=== PATIENT | female | born 1945 | race Hispanic/Latino ===

== ENCOUNTER 2019-07-16 11:54 | Inpatient (IN) | payer MEDICARE, OTHER ==
--- NOTE | 2019-07-16 12:50 | EKG ---
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
[2019-07-16] MEDS ORDERED: MIDAZOLAM HCL 2 MG/2 ML INJ ONE (12:59)
[2019-07-16] MEDS ORDERED: FENTANYL CITR 100 MCG/2 ML ONE (13:00)
[2019-07-16 13:07] LABS: Absolute Lymphocytes (CBC) 1.8 K/uL (0.7-4.9); Basophils % 0.7 % (0-1.3); Lymphocytes % 22.1 % (15.3-44.8); MPV 10.9 fL (7.6-11.3); RBC Red Blood Cell Count 3.57 M/uL (3.86-4.86)
[2019-07-16] MEDS ORDERED: NA CHLORIDE 0.9% 1,000 ML ONE (13:09)
[2019-07-16] MEDS ORDERED: PROMETHAZINE INJ 25 MG/ML AMP ONE (13:15)
[2019-07-16 13:34] LABS: ALT/SGPT 21 U/L (12-78); AST/SGOT 16 U/L (15-37); Albumin 3.2 g/dL (3.4-5.0); Alkaline Phosphatase 150 U/L (45-117); BUN Blood Urea Nitrogen 39 mg/dL (7-18); Bicarbonate 23 mmol/L (21-32); Bilirubin Direct < 0.1 mg/dL (0-0.2); Bilirubin Total 0.2 mg/dL (0.2-1.0); Glucose Level 210 mg/dL (74-106); Magnesium 2.4 mg/dL (1.8-2.4); NT PRO-BNP 1560 pg/mL (<125); Potassium 4.3 mmol/L (3.5-5.1); Protein, Total 7.4 g/dL (6.4-8.2); Sodium Level 142 mmol/L (136-145); Troponin (Emerg Dept Use Only) < 0.02 ng/mL (0.0-0.045)
--- NOTE | 2019-07-16 13:38 | RAD REPORT ---
EXAM DESCRIPTION: RAD - Chest Single View - 07/16/2019 1:13 pm CLINICAL HISTORY: CHEST PAIN COMPARISON: Portable March 2016 TECHNIQUE: AP portable chest image was obtained 07/16/2019 1:13 pm . FINDINGS: No peripheral mass or consolidation. Interstitial markings are prominent. Cardiomegaly is present with prominent vasculature. Pacemaker/defibrillator is in place. Heart and vasculature are no rmal. No measurable pleural effusion and no pneumothorax. No acute bony abnormality seen. No acute ao rtic findings suspected. IMPRESSION: Mild CHF/volume overload pattern.
--- OUTSIDE RECORDS SUMMARY | 2019-07-16 14:10 | XMS REPORT ---
:1945 Author Organization [facility] t Address [address] [place] [address] Care Team Providers Name Role Phone Kumar SQUIRES Attending Clinician Junito Coleman Main Attending Clinician Unavailable Lauryn Moscoso MD Attending Clinician Tin SQUIRES Attending Clinician Problems This patient has no known problems. Allergies, Adverse Reactions, Alerts This patient has no known allergies or adverse reactions. Medications This patient has no known medications. Procedures This patient has no known procedures. Encounters Start End Encounter Admission Attending Care Care Encounter Source Date/Time Date/Time Type Type Clinicians Facility Department ID 2019-07-01 2019-07-01 Telephone Kumar LAJENNI [id number] 00:00:00 00:00:00 Sriram Gomez [id number] [place] [id number] Uriah [phone] [facility] 059 [facility] 2019-06-30 2019-06-30 Ice Skating Teacher Luís Coleman [id number] 07:52:57 08:07:57 Visit Lab Main Jason [id number] [place] [id number] Uriah [id number] [facility] 353 [facility] 2019-06-25 2019-06-25 Telemedici Kumar LAJENNI [id number] 08:37:50 08:57:50 ne Visit Sriram [place] [id number] [place] [id number] Professio [phone] [address] 2019-05-28 2019-05-28 [facility] [id number] 00:00:00 00:00:00 [facility] [id number] [place] [id number] Professio [phone] [place] [address] Office [facility] 2019-05-25 2019-05-25 [facility] [id number] 00:00:00 00:00:00 [facility] [id number] [place] [id number] Professio [phone] [place] [address] Office [facility] 2019-05-20 2019-05-20 [facility] [id number] 13:50:59 14:10:59 ne Visit Sriram Gomez [id number] [place] [id number] Professio [phone] [address] 2019-05-20 2019-05-20 [facility]phone [facility] [id number] 00:00:00 00:00:00 [facility] [id number] [place] [id number] Professio [phone] [place] [address] Office [facility] 2019-05-13 2019-05-13 [facility]phone [facility] [id number] 00:00:00 00:00:00 Sriram [place] [id number] [place] [id number] Professio [phone] [address] 2019-05-09 2019-05-09 [facility] [id number] 00:00:00 00:00:00 [facility] [id number] [place] [id number] [facility]io [phone] [place] [address] Office [facility] 2019-05-02 2019-05-02 Telephone Tin [facility] [id number] 00:00:00 00:00:00 [place] Jason [id number] [place] [id number] Professio [phone] [facility] 220 Building 2019-05-02 2019-05-02 Telephone Blanka [facility] [id number] 00:00:00 00:00:00 [facility] [id number] [place] [id number] Professio [phone] [facility] 044 Office Building One 2019-04-30 2019-04-30 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 Profess[facility] [phone] [address] Results This patient has no known results.
--- OUTSIDE RECORDS SUMMARY | 2019-07-16 14:10 | XMS REPORT | Summary of Care ---
:1945 Author Organization [facility] Address [address] [place], [place] [address] Care Team Providers Name Role Phone Ortega Dorsey MD Chief Controller [phone] Lauryn Moscoso MD Primary Care Provider Lauren Dickinson DO Cloth Booker Reason for Referral (Routine) Status Reason Specialty Diagnoses / Referred By Referred To Procedures Contact Contact New Request Cardiology Diagnoses Atrial fibrillation, unspecified type Sriram Heath MD Procedures CONSULT CARDIAC EP/HEART RHYTHM CENTER [address] [place] [address] [address] [place] [address] Reason for Visit Reason Comments Follow-up 3mo Encounter Details Date Type Department Care Team Description 04/28/2019 Office Visit [facility] Sriram Heath M D Atrial fibrillation, unspecified type (P rimary Dx); Cardiology- [address] Chronic systolic heart failu re; [address] [place] [address] Essential hypertension; Drive, [address] Other hyperlipidemia; [place], [place] [address] Obesity (BMI 30-39.9) [id number] Allergies No Known Allergiesdocumented as of this encounter (statuses as of 04/28/2019) Medications Medication Sig Dispensed Refills Start End Date Status Date Blood-Glucose Meter Check glucose 1 Each 0 Active Kit once daily 8 before breakfast; Diagnosis code E11.9 blood sugar Check glucose 50 Strip 11 Acti ve diagnostic (BLOOD once daily 8 GLUCOSE TEST) strip before breakfast; Diagnosis code E11.9 Lancets Misc Check glucose 50 Each Act fernando once daily 8 before breakfast; Diagnosis code E11.9 insulin NPH human inject under 0 Active isophane (NOVOLIN N the skin. 20 SC) units inj SC qAM, 26 units qPM insulin regular inject under 0 Active human (NOVOLIN R the skin. Per REGULAR U-100 Sliding scale INSULN) 100 unit/mL injection XARELTO 15 mg TAKE 1 TABLET 30 tablet 5 Ac tive tabletIndications: BY MOUTH ONCE 9 Atrial A DAY fibrillation, unspecified type traMADol 50 mg Take 1 tablet 20 tablet 0 A ctive tabletIndications: by mouth 9 Injury of head, every 6 (six) initial encounter hours as needed (pain). metoclopramide HCl Take 1 tablet 20 tablet 0 Active 10 mg by mouth 9 tabletIndications: every 6 (six) Injury of head, hours as initial encounter needed (headache and/or nausea). sacubitril-valsarta Take 0.5 60 tablet 2 Active n (ENTRESTO) 24-26 tablets by 9 mg mouth 2 (two) tabletIndications: times daily. Chronic systolic heart failure phenytoin Extended TAKE 1 270 capsule 1 Active 100 mg CAPSULE BY 9 capsuleIndications: MOUTH EVERY Seizure disorder MORNING AND 2 CAPSULES IN THE EVENING digoxin 125 mcg Take 1 tablet 30 tablet 5 Active (0.125 mg) by mouth 9 tabletIndications: daily. Chronic combined systolic and diastolic heart failure furosemide 20 mg Take 1 tablet 15 tablet 0 Active tabletIndications: by mouth as 9 Non-ischemic needed cardiomyopathy (worsening swelling or SOB). atorvastatin 40 mg TAKE 1 TABLET 90 tablet 1 Active tabletIndications: BY MOUTH 0 Other EVERYDAY AT hyperlipidemia BEDTIME metoprolol Take 2 270 tablet 1 Active succinate XL 50 mg tablets by 0 24 hr mouth 2 (two) tabletIndications: times daily. Essential hypertension metoprolol Take 1.5 270 tablet 1 04/28/19 Disconti nued succinate XL 50 mg tablets by 9 20 (Reorder) 24 hr mouth 2 (two) tabletIndications: times daily. Essential hypertension documented as of this encounter (statuses as of 04/28/2019) Active Problems Problem Noted Date Spontaneous ecchymoses 01/09/2019 Multiple thyroid nodules 12/18/2018 Overview: "no worrisome features" per US 12/18/18 PAF (paroxysmal atrial fibrillation) 12/09/2018 Chronic diastolic congestive heart failure 12/09/2018 Obesity (BMI 30-39.9) 12/09/2018 Orthostatic hypotension 12/09/2018 FELICIA (acute kidney injury) 12/09/2018 Dizziness 12/07/2018 Acute on chronic anemia 10/30/2018 Atypical chest pain 06/27/2018 Left arm pain 06/26/2018 Arthritis of lumbar spine 02/25/2018 Degenerative arthritis of lumbar spine 02/25/2018 Spondylolisthesis, lumbar region 02/25/2018 DDD (degenerative disc disease), lumbar 02/25/2018 Osteoarthritis of left knee 02/25/2018 Dyspnea 02/13/2018 Acute on chronic combined systolic and diastolic conge stive heart failure 02/13/2018 Chronic nausea 02/13/2018 Dysphagia 02/13/2018 Fatty liver 07/09/2017 Abnormal LFTs 06/29/2017 Multiple renal cysts 06/29/2017 Overview: Negink Type 1 per Radiologist. Hyperkalemia 06/29/2017 History of colon polyps 06/21/2017 History of pulmonary embolism 04/07/2017 ICD (implantable cardioverter-defibrillator) in place 04/07/2017 Atrial fibrillation 03/06/2017 Syncope 03/05/2017 DM (diabetes mellitus), type 2 with renal complication s 10/20/2011 Anxiety CKD (chronic kidney disease) stage 4, GFR 15-29 ml/min Epilepsy Esophageal reflux HLD (hyperlipidemia) HTN (hypertension) Non-ischemic cardiomyopathy ASHLYN (obstructive sleep apnea) documented as of this encounter (statuses as of 04/28/2019) Immunizations Name Administration Dates Next Due HEP B, Adult Dosage 03/25/2018, 10/10/2017, 09/05/2017 Pneumococcal 13 Conjugate, PCV13 (Prevnar 02/19/2015 13) Pneumococcal Polysaccharide, PPSV23 02/19/2011 (PNEUMOVAX) documented as of this encounter Social History Tobacco Use Types Packs/Day Years Used Date Never Smoker Smokeless Tobacco: Never Used Comments: exposed to passive smoke Alcohol Use Drinks/Week oz/Week Comments No Sex Assigned at Date Recorded Not on file Job Start Date Occupation Industry Not on file Not on file Not on file Travel History Travel Start Travel End No recent travel history available. documented as of this encounter Last Filed Vital Signs Vital Sign Reading Time Taken Comments Blood Pressure 151/81 04/28/2019 1:38 PM CDT Pulse 91 04/28/2019 1:38 PM CDT Temperature - - Respiratory Rate 19 04/28/2019 1:36 PM CDT Oxygen Saturation 96% 04/28/2019 1:36 PM CDT Inhaled Oxygen Concentration - - Weight 83.3 kg (183 lb 11.2 oz) 04/28/2019 1:36 PM CDT Height 152.4 cm (5') 04/28/2019 1:36 PM CDT Body Mass Index 35.88 04/28/2019 1:36 PM CDT documented in this encounter Patient Instructions Patient InstructionsCaSriram rubalcava MD - 04/28/2019 1:20 PM CDTIncrease Toprol XL to 100 mg 2 times a day Come for a blood test in the morning before taking pills documented in this encounter Progress Notes Sriram Heath MD - 04/28/2019 1:20 PM CDT CARDIOLOGY CLINIC NOTE 04/28/2019 Reason for Referral/Presenting Complaint: HFpEF, Afib PCP: Kylah Moscoso History of Present Illness: Teena Simpson is a 74 years old female with history of HFrEF (NICM, EF 20-25% per echo 03/05/17, NYHA functional class III, Stage C) 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 In 02/2017 she was admitted to [facility] for syncope and ICD shocks due to VT. Was initiated on amiodarone. In 01/2018 she was admitted to [facility] for volume overload. Admitted to [facility] in 06/2018 for chest pain. NC ruled out. Admitted to [facility] in 11/2018 for dizziness and orthostasis. Lasix was reduced. Coreg changed to metoprolol. Amiodarone was stopped by HF team due to hyperthyroidism. Last visit she was seen for R big toe tip blister and black color. RLE pain with walking, RLE edema.[place] and venous duplex negative. For the past 2 weeks she has been having palpitations with fast HR when doing activities. Associatedwith mild LH/imbalance. Lost a few lbs. EKG--04/28/2019--reviewed by me--Atrial sense V-paced with PVCs/NSVT Review of Systems: General: (-) fever, (-) chills, (+) weight change, (-) dizziness, (+) fatigue Skin: (-) rash HEENT: (-) headache, (-) change in vision Neck: (-) difficulty swallowing Heme: negative Resp: (-) cough, (+) dyspnea on exertion Cardio: (-) chest pain, (+) palpitations, (-) syncope GI: (-) vomiting, (-) diarrhea : negative Endo: (+) diabetes, (-) thyroid disease Neuro: (-) numbness, (-) tingling, (-) weakness Back: (-) pain MOJGAN: (-) muscle pain, (-) claudication Psych: (-) anxiety, (-) depression Past Medical History: Past Medical History: Diagnosis Date A-fib Abnormal LFTs Anemia Anxiety Chronic nausea 02/13/2018 CKD (chronic kidney disease) stage 4, GFR 15-29 ml/min DDD (degenerative disc disease), lumbar 02/25/2018 Degenerative arthritis of lumbar spine 02/25/2018 Diabetes mellitus Elevated alkaline phosphatase level 06/29/2017 Epilepsy Esophageal reflux Esophageal stricture 07/20/2017 Fatty liver 07/09/2017 Gastritis 07/20/2017 History of colon polyps 06/21/2017 HLD (hyperlipidemia) HTN (hypertension) Hyperkalemia 06/29/2017 ICD (implantable cardiac defibrillator) in place 2008 Multiple renal cysts 06/29/2017 Bosniak I type per Radiology Multiple thyroid nodules 12/18/2018 "no worrisome features" per US 12/18/18 Non-ischemic cardiomyopathy ASHLYN (obstructive sleep apnea) Osteoarthritis of left knee 02/25/2018 PE (pulmonary embolism) 2010 Spondylolisthesis, lumbar region 02/25/2018 Current Medications: Current Outpatient Medications Medication Sig Dispense Refill metoprolol succinate XL 50 mg 24 hr tablet Take 2 tablets by mouth 2 (two) times daily. 270 tablet 1 atorvastatin 40 mg tablet TAKE 1 TABLET BY MOUTH EVERYDAY AT BEDTIME 90 tablet 1 digoxin 125 mcg (0.125 mg) tablet Take 1 tablet by mouth daily. 30 tablet 5 furosemide 20 mg tablet Take 1 tablet by mouth as needed (worsening swelling or SOB). 15 tablet 0 phenytoin Extended 100 mg capsule TAKE 1 CAPSULE BY MOUTH EVERY MORNING AND 2 CAPSULES IN THE EVENING 270 capsule 1 sacubitril-valsartan (ENTRESTO) 24-26 mg tablet Take 0.5 tablets by mouth 2 (two) times daily. 60 tablet 2 XARELTO 15 mg tablet TAKE 1 TABLET BY MOUTH ONCE A DAY 30 tablet 5 insulin NPH human isophane (NOVOLIN N SC) inject under the skin. 20 units inj SC qAM, 26 units qPM insulin regular human (NOVOLIN R REGULAR U-100 INSULN) 100 unit/mL injection inject under the skin. Per Sliding scale metoclopramide HCl 10 mg tablet Take 1 tablet by mouth every 6 (six) hours as needed (headache and/or nausea). 20 tablet 0 traMADol 50 mg tablet Take 1 tablet by mouth every 6 (six) hours as needed (pain). 20 tablet 0 blood sugar diagnostic (BLOOD GLUCOSE TEST) strip Check glucose once daily before breakfast; Diagnosis code E11.9 50 Strip 11 Blood-Glucose Meter Kit Check glucose once daily before breakfast; Diagnosis code E11.9 1 Each 0 Lancets Misc Check glucose once daily before breakfast; Diagnosis code E11.9 50 Each 11 No current facility-administered medications for this visit. Social History: Social History Socioeconomic History Marital status: Spouse name: Not on file Number of children: Not on file Years of education: Not on file Highest education level: Not on file Occupational History Not on file Social Needs Financial resource strain: Not on file Food insecurity: Worry: Not on file Inability: Not on file Transportation needs: Medical: Not on file Non-medical: Not on file Tobacco Use Smoking status: Never Smoker Smokeless tobacco: Never Used Tobacco comment: exposed to passive smoke Substance and Sexual Activity Alcohol use: No Drug use: No Sexual activity: Not on file Lifestyle Physical activity: Days per week: Not on file Minutes per session: Not on file Stress: Not on file Relationships Social connections: Talks on phone: Not on file Gets together: Not on file Attends denominational service: Not on file Active member of club or organization: Not on file Attends meetings of clubs or organizations: Not on file Relationship status: Not on file Intimate partner violence: Fear of current or ex partner: Not on file Emotionally abused: Not on file Physically abused: Not on file Forced sexual activity: Not on file Other Topics Concern Not on file Social History Narrative Lives with retired Family History Family History Problem Relation Age of Onset Diabetes Mother Diabetes Brother Physical Examination: BP (!) 151/81 | Pulse 91 | Resp 19 | Ht 5' (1.524 m) | Wt 183 lb 11.2 oz (83.3 kg) | SpO2 96% | BMI 35.88 kg/m Constitutional: alert and oriented x 3 (person, place and date/time); no apparent distress, obese ENT: normocephalic atraumatic, supple, no lymphadenopathy, no bruits, no JVD Lungs: clear to auscultation bilaterally Cardiovascular: S1, S2 normal, regular; no murmurs, rubs or gallops GI: soft; non-tender; non-distended; normoactive bowel sounds : not examined Musculoskeletal: Extremities: no clubbing, cyanosis Skin: no rashes Neuro: no focal deficits Cardiovascular testing: EKG: Atrial sense ventricular paced rhythm. Echocardiogram: Mild dilated LV size with normal thickness. Severely reduced LV systolic function. Mild LA enlargement. Mild MR and TR. RVSP elevated 30-35 mmHg 03/2018--The left ventrical is mildly dilated. There is normal left ventricular wall thickness. Ejection Fraction = 30-35%. Diastolic dysfunction. Left ventricular systolic function is moderate to severely reduced. There is a large sized apical, septal, anteroseptal, and inferior wall motion abnormality with hypokinesis of the segments. Stress Test: nuclear stress test--02/2017--no ischemia Assessment/Plan: ICD-10-CM ICD-9-CM 1. Atrial fibrillation, unspecified type I48.91 427.31 2. Chronic systolic heart failure I50.22 428.22 3. Essential hypertension I10 401.9 4. Other hyperlipidemia E78.49 272.4 5. Obesity (BMI 30-39.9) E66.9 278.00 HFrEF--Her volume status has improved. Currently taking lasix 20 mg every other day. On Toprol XL/entresto. Low salt diet. She is taking coreg as well--advised to stop. PAfib--Now paced rhythm but probably pAfib. Off amiodarone due to thyroid side effects. On Xarelto. No bleeding. Will increase Toprol XL to 100 mg BID. S/p CAFETERIA TABLE ATTENDANT-D. Will refer to EP. ASHLYN--unable to tolerate C-PAP. Refer to sleep medicine. Carotid artery disease--bilateral moderate disease. On high intensity lipitor. LDL 54. Repeat carotid duplex next visit. Patient was counseled for lifestyle modifications including: diet, exercise and weight loss. RTC 4 months Sriram Heath MD, FAC, [facility] Wheel Arm Burnisher, Division of Cardiology [facility] documented in this encounter Plan of Treatment Date Type Specialty Care Team Description 05/21/2019 Office Visit Pulmonary Disease Karley Martinez MD [address] [place] [address] 77 15 [phone] 06/13/2019 Nurse Visit Cardiology Visit, Adc Nurse 08/13/2019 Office Visit Endocrinology Diabetes & Duncan Castle MD [facility] [address] [place] [address] [phone] 09/08/2019 Office Visit Cardiology Sriram Heath M D [address] [place] [address] 15 Name Type Priority Associated Diagnoses Order S chedule EKG-12 LEAD HEART STATION Routine Atrial fibrillation, 1 Occu rrences starting ROUTINE unspecified type 04/28/2019 until 07/27/2019 DIGOXIN LAB Routine Atrial fibrillation, Ordered : 04/28/2019 unspecified type Health Maintenance Due Date Last Done Comments DTaP,Tdap,and Td Vaccines (1 - 1957 Tdap) Zoster Recombinant Vaccine 1996 (SHINGRIX) (1 of 2) Medicare Wellness Visit 2011 Osteoporosis Screening 2011 PNEUMOCOCCAL VACCINES 65+ (2 of 2 02/20/2016 02/19/2015, - PPSV23) INFLUENZA VACCINE (#1) 2018 LDL-C 06/18/2019 06/17/2018, 06/21/2017, 10/04/2003 Breast Cancer Screening 07/09/2019 07/08/2018 (MAMMOGRAM) EYE EXAM 08/06/2019 08/05/2018, 06/22/2017, 06/22/2017, Additional history exists HgA1C 10/08/2019 04/09/2019, 12/04/2018, 06/26/2018, Additional history exists FOOT EXAM 01/07/2020 01/06/2019, 01/06/2019, 06/05/2018, Additional history exists CREATININE (SERUM) 01/20/2020 01/19/2019, 01/15/2019, 12/09/2018, Additional history exists COLONOSCOPY 02/20/2020 02/19/2010 (Previously completed) URINE MICROALBUMIN 04/09/2020 04/09/2019, 06/17/2018, 06/21/2017 HEPATITIS C (HCV) SCREEN Completed 06/21/2017 documented as of this encounter Implants Implanted Type Area Physical Therapist Device Shelf Model / Identifier Expiration Serial / Date Lot Defibrillator DEFIBRILLATOR Med[employer]onic DT [id number] / [id number] / documented as of this encounter Results Not on filedocumented in this encounter Visit Diagnoses Diagnosis Atrial fibrillation, unspecified type - Primary Chronic systolic heart failure Essential hypertension Unspecified essential hypertension Other hyperlipidemia Obesity (BMI 30-39.9) Obesity, unspecified documented in this encounter Insurance Payer Benefit Plan / Subscriber ID Effective Phone Address T [employer] [facility] [id number] 2019-Nuria javier [facility]ANTAGE G (Home) [place] [address] documented as of this encounter Advance Directives Name Relationship Healthcare Agent Communication Relationship Marcella Schmitz Child Primary healthcare agent [phone] (Mobile) nadia [email or web address]
--- OUTSIDE RECORDS SUMMARY | 2019-07-16 14:11 | XMS REPORT | Summary of Care ---
:1945 Author Organization [facility] - [facility] Address [address] [place], [place] [address] Care Team Providers Name Role Phone Ortega Dorsey MD Concrete Mixer Operator [phone] Lauryn Moscoso MD Primary Care Provider Lauren Dickinson DO Set Off Press Operator Reason for Referral (Routine) Status Reason Specialty Diagnoses / Referred By Referred To Procedures Contact Contact New Request Cardiology Diagnoses Atrial fibrillation, unspecified type Sriram Heath MD Procedures CONSULT CARDIAC EP/[facility]ART RHYTHM [facility] [address] [place] [address] [address] [place] [address] Reason for Visit Reason Comments Follow-up 3mo Encounter Details Date Type Department Care Team Description 04/28/2019 Office Visit [facility] Sriram Heath M D Atrial fibrillation, unspecified type (P rimary Dx); Cardiology- [address] Chronic systolic heart failu re; [address] [place] [address] Essential hypertension; Drive, [address] Other hyperlipidemia; [place], [place] [address] Obesity (BMI 30-39.9) [address] [...] NYHA functional class III, Stage C) 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 In 02/2017 she was admitted to [facility] for syncope and ICD shocks due to VT. Was initiated on amiodarone. In 01/2018 she was admitted to [facility] for volume overload. Admitted to [facility] in 06/2018 for chest pain. [place] ruled out. Admitted to [facility] in 11/2018 for dizziness and orthostasis. Lasix [...] file Gets together: Not on file Attends zoroastrianism service: Not on file Active member of [...] Toprol XL to 100 mg BID. S/p MANAGER UNIVERSAL-D. Will refer to EP. ASHLYN--unable to tolerate C-PAP. Refer to sleep medicine. Carotid artery disease--bilateral moderate disease. On high intensity lipitor. LDL 54. Repeat carotid duplex next visit. Patient was counseled for lifestyle modifications including: diet, exercise and weight loss. RTC 4 months Sriram Heath MD, FAC, MADISYN Machine Tool Mechanic, Division of Cardiology [facility] documented in this encounter Plan of Treatment Date Type Specialty Care Team Description 05/21/2019 Office Visit Pulmonary Disease Karley Martinez MD [address] [place] [address] 77 15 [phone] 06/13/2019 Nurse Visit Cardiology Visit, Adc Nurse 08/13/2019 Office Visit Endocrinology Diabetes & Duncan Castle MD [facility] [address] [place] [address] [phone] 09/08/2019 Office Visit Cardiology Sriram Heath M D [address] [place] [address] 15 Name Type Priority Associated Diagnoses Order [...] of this encounter Implants Implanted Type Area Pediatrics Teacher Device Shelf Model / Identifier Expiration Serial / Date Lot Defibrillator DEFIBRILLATOR Medtronic DT [id number] / [id number] / documented as of this encounter Results Not on filedocumented in this encounter Visit Diagnoses Diagnosis Atrial fibrillation, unspecified type - Primary Chronic systolic heart failure Essential hypertension Unspecified essential hypertension Other hyperlipidemia Obesity (BMI 30-39.9) Obesity, unspecified documented in this encounter Insurance Payer Benefit Plan / Subscriber ID Effective Phone Address T ype Group [facility] [id number] 2019-Nuria javier [facility] HEALTHC[facility] ADVANTAGE G (Home) [place] [address] documented as of this encounter Advance Directives Name Relationship Healthcare Agent Communication Relationship Marcella Schmitz Child Primary healthcare agent [phone] (Mobile) nadia [email or web address]
--- OUTSIDE RECORDS SUMMARY | 2019-07-16 14:12 | XMS REPORT | Summary of Care ---
:1945 Author Organization [facility] Address [address] [place], [place] [address] Care Team Providers Name Role Phone Ortega Dorsey MD Gasoline Truck Crane Operator [phone] Lauryn Moscoso MD Primary Care Provider Lauren Dickinson DO Hydroponics Worker Reason for Visit Reason Comments LAB WORK Auth/Cert Status Reason Specialty Diagnoses / Procedures Referred By Babita lawrence Referred To Contact Phlebotomy Diagnoses A FIB Adc Pob Lab Draw Procedures DIGOXIN Professional Office Building [address] [facility] , [address] [place] [address] Phone: Fax: Encounter Details Date Type Department Care Team Description 04/30/2019 Overhauler Visit [facility] Sriram Heath MD [address] [place] [address] [address] [place] [address] Routine general Professional Office Pob, Adc Lab Main medical examination [facility] Professional Office Building [address] [place] [address] , [address] [place] [address] Allergies No Known Allergiesdocumented as of this encounter (statuses as of 04/30/2019) Medications Medication Sig Dispensed Refills Start Date End Date Status Blood-Glucose Meter Check glucose 1 Each 0 07/03/2017 Active Kit once daily before breakfast; Diagnosis code E11.9 blood sugar diagnostic Check glucose 50 Strip 11 07/03/2017 Active (BLOOD GLUCOSE TEST) once daily strip before breakfast; Diagnosis code E11.9 Lancets Misc Check glucose 50 Each 11 07/03/2017 Ac tive once daily before breakfast; Diagnosis code E11.9 insulin NPH human inject under 0 Active isophane (NOVOLIN N the skin. 20 SC) units inj SC qAM, 26 units qPM insulin regular human inject under 0 Active (NOVOLIN R REGULAR the skin. Per U-100 INSULN) 100 Sliding scale unit/mL injection XARELTO 15 mg TAKE 1 TABLET BY 30 tablet 5 11/11/2018 Active tabletIndications: MOUTH ONCE A DAY Atrial fibrillation, unspecified type traMADol 50 mg Take 1 tablet by 20 tablet 0 11/22/2018 Active tabletIndications: mouth every 6 Injury of head, (six) hours as initial encounter needed (pain). metoclopramide HCl 10 Take 1 tablet by 20 tablet 0 11/22/2018 Active mg tabletIndications: mouth every 6 Injury of head, (six) hours as initial encounter needed (headache and/or nausea). sacubitril-valsartan Take 0.5 tablets 60 tablet 2 12/09/2018 Active (ENTRESTO) 24-26 mg by mouth 2 (two) tabletIndications: times daily. Chronic systolic heart failure phenytoin Extended 100 TAKE 1 CAPSULE 270 capsule 1 12/30/2018 Active mg capsuleIndications: BY MOUTH EVERY Seizure disorder MORNING AND 2 CAPSULES IN THE EVENING digoxin 125 mcg (0.125 Take 1 tablet by 30 tablet 5 12/30/2018 Active mg) tabletIndications: mouth daily. Chronic combined systolic and diastolic heart failure furosemide 20 mg Take 1 tablet by 15 tablet 0 12/30/2018 Active tabletIndications: mouth as needed Non-ischemic (worsening cardiomyopathy swelling or SOB). atorvastatin 40 mg TAKE 1 TABLET BY 90 tablet 1 02/28/2019 Active tabletIndications: MOUTH EVERYDAY Other hyperlipidemia AT BEDTIME metoprolol succinate Take 2 tablets 270 tablet 1 04/28/2019 Active XL 50 mg 24 hr by mouth 2 (two) tabletIndications: times daily. Essential hypertension documented as of this encounter (statuses as of 04/30/2019) Active Problems Problem Noted Date Spontaneous ecchymoses [...] LFTs 06/29/2017 Multiple renal cysts 06/29/2017 Overview: Bosniak Type 1 per Radiologist. Hyperkalemia 06/29/2017 History [...] as of this encounter (statuses as of 04/30/2019) Immunizations Name Administration Dates Next Due HEP [...] of this encounter Last Filed Vital Signs Not on filedocumented in this encounter Plan of Treatment Date Type Specialty Care Team Description 05/21/2019 Office Visit Pulmonary Disease Karley Martinez MD [address] [facility] [address] [facility] [address] [place], [place] [address] [phone] 06/13/2019 Nurse Visit Cardiology Visit, Adc Nurse 08/13/2019 Office Visit Endocrinology Diabetes & Duncan Castle MD [address] [place] [address] [phone] 09/08/2019 Office Visit Cardiology Sriram Heath M D [address] [facility] [address] [place], [place] [address] [phone] Health Maintenance Due Date Last Done Comments [...] of this encounter Implants Implanted Type Area Application Release Manager Device Shelf Model / Identifier Expiration Serial / Date Lot Defibrillator DEFIBRILLATOR Medtronic DT BA1D1 / [id number] / documented as of this encounter Results Not on filedocumented in this encounter Visit Diagnoses Diagnosis Routine general medical examination at a health care facility documented in this encounter Insurance Payer Benefit Plan / Subscriber ID Effective Phone Address T ype Group Dates [facility] [id number] 2019-Nuria javier Adv HEALTHCARE - MEDICARE nt HMO MANAGED MEDICARE ADVANTAGE (Home) [place] [address] documented as of this encounter Advance Directives Name Relationship Healthcare Agent Communication Relationship Marcella Schmitz Child Primary healthcare agent [phone] (Mobile) nadia [email or web address]
--- OUTSIDE RECORDS SUMMARY | 2019-07-16 14:12 | XMS REPORT | Summary of Care ---
:1945 Author Organization [facility] - [facility] Address [address] [place] [address] Care Team Providers Name Role Phone Willian Ortega Lester MD Marble Rubber [phone] Lauryn Moscoso MD Primary Care Provider Lauren Dickinson DO Magnetic Tape Winder Reason for Visit Reason Comments Assessment Encounter Details Date Type Department Care Team Description 04/30/2019 Telephone [facility] Family Medicine Kylah Mart MD Assessment - [place] [address] [place] [address] [place] [address] [phone] Allergies No Known Allergiesdocumented as of this encounter (statuses as of 05/01/2019) Medications Medication Sig Dispensed Refills Start Date End Date Status Blood-Glucose Meter Check glucose 1 Each 0 07/03/2017 Active Kit once daily before breakfast; Diagnosis code E11.9 blood sugar diagnostic Check glucose 50 Strip 07/03/2017 Active (BLOOD GLUCOSE TEST) once daily strip before breakfast; Diagnosis code E11.9 Lancets Misc Check glucose 50 Each 07/03/2017 Ac tive once daily before breakfast; [...] as of this encounter (statuses as of 05/01/2019) Active Problems Problem Noted Date Spontaneous ecchymoses [...] as of this encounter (statuses as of 05/01/2019) Immunizations Name Administration Dates Next Due HEP [...] Office Visit Pulmonary Disease Karley Martinez MD [address] [place] [address] 77 15 [phone] 06/13/2019 Nurse Visit Cardiology Visit, Adc Nurse 08/13/2019 Office Visit Endocrinology Diabetes & Duncan Castle MD Metabolism [address] [place] [address] [phone] 09/08/2019 Office Visit Cardiology Sriram Heath M D [address] [place] [address] [address] [place], [place] [address] [phone] Health Maintenance Due Date Last Done Comments [...] of this encounter Implants Implanted Type Area Wire Weaver Helper Device Shelf Model / Identifier Expiration Serial / Date Lot Defibrillator DEFIBRILLATOR Medtronic DT BA1D1 / [id number] / documented as of this encounter Results Not on filedocumented in this encounter Insurance Payer Benefit Plan / Subscriber ID Effective Phone Address T ype Group Dates [employer] [id number] 2019-Nuria javier Adv HEALTHCARE - MEDICARE nt O MANAGED MEDICARE ADVANTAGE documented as of this encounter Advance Directives Name Relationship Healthcare Agent Communication Relationship Marcella Schmitz Child Primary healthcare agent [email or web address]
--- OUTSIDE RECORDS SUMMARY | 2019-07-16 14:13 | XMS REPORT | Summary of Care ---
:1945 Author Organization [facility] Address [address] [place] [address] Care Team Providers Name Role Phone Ortega Dorsey MD Lamination Technician [phone] Lauryn Moscoso MD Primary Care Provider Lauren Dickinson DO Restorative Rehab Aide Reason for Visit Reason Comments Lab Results Encounter Details Date Type Department Care Team Description 05/02/2019 Telephone [facility] Endocrinology- Levi Castle MD Lab Results [address] Professional Office [address] [place]ura [phone] [address] [place] [address] Allergies No Known Allergiesdocumented as of this encounter (statuses as of 05/05/2019) Medications Medication Sig Dispensed Refills Start Date [...] as of this encounter (statuses as of 05/05/2019) Active Problems Problem Noted Date Spontaneous ecchymoses [...] as of this encounter (statuses as of 05/05/2019) Immunizations Name Administration Dates Next Due HEP [...] Office Visit Pulmonary Disease Karley Martinez MD [facility] [address] 77 15 [phone] 06/13/2019 Nurse Visit Cardiology Visit, Adc Nurse 08/13/2019 Office Visit Endocrinology Diabetes & Duncan Castle MD Metabolism [facility] [place] [address] [phone] 09/08/2019 Office Visit Cardiology Sriram Heath M D [address] [place] [address] [address] [place] [address] [phone] Health Maintenance Due Date Last Done Comments [...] of this encounter Implants Implanted Type Area Farm Operator Device Shelf Model / Identifier Expiration Serial / Date Lot Defibrillator DEFIBRILLATOR Medtronic DT BA1D1 / [id number] / documented as of this encounter Results Not on filedocumented in this encounter Insurance Payer Benefit Plan / Subscriber ID Effective Phone Address T ype Group Dates [employer] [id number] 2019-Prese Me javier Adv HEALTHCARE - MEDICARE nt HMO MANAGED MEDICARE ADVANTAGE documented as of this encounter Advance Directives Name Relationship Healthcare Agent Communication Relationship Marcella Schmitz Child Primary healthcare agent [email or web address] [email or web address]
--- OUTSIDE RECORDS SUMMARY | 2019-07-16 14:14 | XMS REPORT | Summary of Care ---
:1945 Author Organization [facility] Address [address] [place] [address] Care Team Providers Name Role Phone Willian Ortega Lester MD Chemical Laboratory Chief [phone] Lauryn Moscoso MD Primary Care Provider Lauren Dickinson DO Logistics Officer Reason for Visit Reason Comments Referral/consult Encounter Details Date Type Department Care Team Description 05/02/2019 Telephone [facility] Family Kylah Moscoso R eferrelinor/consult Medicine - Jason [place] [address] [place], [place] [address] [address] [place], [place] [phone] Allergies No Known Allergiesdocumented as of this encounter (statuses as of 05/12/2019) Medications Medication Sig Dispensed Refills Start Date End Date Status Blood-Glucose Meter Check glucose 1 Each 0 07/03/2017 Active Kit once daily before breakfast; Diagnosis code E11.9 blood sugar Check glucose 50 Strip 07/03/2017 Act fernando diagnostic (BLOOD once daily GLUCOSE TEST) strip before breakfast; Diagnosis code [...] U-100 Sliding scale INSULN) 100 unit/mL injection traMADol 50 mg Take 1 tablet 20 tablet 0 11/22/2018 Active tabletIndications: by mouth every Injury of head, 6 (six) hours initial encounter as needed (pain). metoclopramide HCl Take 1 tablet 20 tablet 0 11/22/2018 Active 10 mg by mouth every tabletIndications: 6 (six) hours Injury of head, as needed initial encounter (headache and/or nausea). sacubitril-valsarta Take 0.5 60 tablet 2 12/09/2018 Active n (ENTRESTO) 24-26 tablets by mg mouth 2 (two) tabletIndications: times daily. Chronic systolic heart failure phenytoin Extended TAKE 1 CAPSULE 270 capsule 1 12/30/2018 Active 100 mg BY MOUTH EVERY capsuleIndications: MORNING AND 2 Seizure disorder CAPSULES IN THE EVENING digoxin 125 mcg Take 1 tablet 30 tablet 5 12/30/2018 Active (0.125 mg) by mouth tabletIndications: daily. Chronic combined systolic and diastolic heart failure furosemide 20 mg Take 1 tablet 15 tablet 0 12/30/2018 Active tabletIndications: by mouth as Non-ischemic needed cardiomyopathy (worsening swelling or SOB). atorvastatin 40 mg TAKE 1 TABLET 90 tablet 1 02/28/2019 Active tabletIndications: BY MOUTH Other EVERYDAY AT hyperlipidemia BEDTIME metoprolol Take 2 tablets 270 tablet 1 04/28/2019 Ac tive succinate XL 50 mg by mouth 2 24 hr (two) times tabletIndications: daily. Essential hypertension XARELTO 15 mg TAKE 1 TABLET 30 tablet 5 11/11/2018 D iscontinued tabletIndications: BY MOUTH ONCE 0 Atrial A DAY fibrillation, unspecified type documented as of this encounter (statuses as of 05/12/2019) Active Problems Problem Noted Date Spontaneous ecchymoses [...] as of this encounter (statuses as of 05/12/2019) Immunizations Name Administration Dates Next Due HEP [...] Visit Pulmonary Disease Karley Martinez MD [address] [place] [address] [address] [phone] 06/13/2019 Nurse Visit Cardiology Visit, Adc Nurse 08/13/2019 Office Visit Endocrinology Diabetes & Duncan Castle MD Metabolism [address] [place] [address] [phone] 09/08/2019 Office Visit Cardiology Sriram Heath M D [address] [place] [address] [address] [place], [place] [address] [phone] Health Maintenance Due Date Last Done Comments [...] of this encounter Implants Implanted Type Area Track Supervisor Device Shelf Model / Identifier Expiration Serial / Date Lot Defibrillator DEFIBRILLATOR Medtronic DT BA1D1 / [id number] / documented as of this encounter Results Not on filedocumented in this encounter Insurance Payer Benefit Plan / Subscriber ID Effective Phone Address T ype Group Dates [facility] [id number] 2019-Nuria javier Adv HEALTHCARE - MEDICARE nt O MANAGED MEDICARE ADVANTAGE documented as of this encounter Advance Directives Name Relationship Healthcare Agent Communication Relationship Marcella Schmitz Child Primary healthcare agent [phone] (Mobile) nadia [email or web address]
--- OUTSIDE RECORDS SUMMARY | 2019-07-16 14:14 | XMS REPORT | Summary of Care ---
:1945 Author Organization [facility] - [facility] Address [address] [place], [place] [address] Care Team Providers Name Role Phone Willian Ortega Lester MD Director Industrial Museum [phone] Lauryn Moscoso MD Primary Care Provider Lauren Dickinson DO Certifed Refrigeration Operator Reason for Visit Reason Comments Refill Request Encounter Details Date Type Department Care Team Description 05/09/2019 Refill [facility] Family Medicine Kylah Mart MD Refill Request - [place] [address] [place] [address] [place] [address] [phone] Allergies No Known Allergiesdocumented as of this encounter (statuses as of 05/09/2019) Medications Medication Sig Dispensed Refills Start Date [...] 15 mg TAKE 1 TABLET 30 tablet 2 05/09/2019 A ctive tabletIndications: BY MOUTH ONCE Atrial A DAY fibrillation, unspecified type XARELTO 15 mg TAKE 1 TABLET 30 tablet 5 11/11/2018 D iscontinued tabletIndications: BY MOUTH ONCE 0 Atrial A DAY fibrillation, unspecified type documented as of this encounter (statuses as of 05/09/2019) Active Problems Problem Noted Date Spontaneous ecchymoses [...] as of this encounter (statuses as of 05/09/2019) Immunizations Name Administration Dates Next Due HEP [...] Pulmonary Disease Karley Martinez MD [address] [place] [address] [phone] 06/13/2019 Nurse Visit Cardiology Visit, Adc Nurse 08/13/2019 Office Visit Endocrinology Diabetes & CastleDuncan MD [address] [place] [address] [phone] 09/08/2019 Office Visit Cardiology Sriram Heath M D [address] [place] [address] [address] [place], [place] [address] [phone] Health Maintenance Due Date Last Done Comments [...] of this encounter Implants Implanted Type Area Medicinal Plant Picker Device Shelf Model / Identifier Expiration Serial / Date Lot Defibrillator DEFIBRILLATOR Medtronic DT BA1D1 / [id number] / documented as of this encounter Results Not on filedocumented in this encounter Visit Diagnoses Diagnosis Atrial fibrillation, unspecified type documented in this encounter Insurance Payer Benefit Plan / Subscriber ID Effective Phone Address T ype Group Dates [facility] [id number] 2019-Nuria Langford [facility]ALTHCARE [facility] documented as of this encounter Advance Directives Name Relationship Healthcare Agent Communication Relationship Marcella Schmitz Child Primary healthcare agent nadia [email or web address]
--- OUTSIDE RECORDS SUMMARY | 2019-07-16 14:15 | XMS REPORT | Summary of Care ---
:1945 Author Organization [facility] - [facility] Address [address] [place] [address] Care Team Providers Name Role Phone Willian Ortega Lester MD Product Consultant [phone] Lauryn Moscoso MD Primary Care Provider Lauren Dickinson DO Facility Supervisor Reason for Visit Reason Comments TEST RESULTS [facility] Encounter Details Date Type Department Care Team Description 05/13/[address] [facility] Sriram Heath M D TEST RESULTS (Dig Cardiology- [address]) [address] [place], [place] [phone] Allergies No Known Allergiesdocumented as of this encounter (statuses as of 05/13/2019) Medications Medication Sig Dispensed Refills Start Date [...] U-100 INSULN) 100 Sliding scale unit/mL injection traMADol 50 mg Take 1 tablet by [...] 2 (two) tabletIndications: times daily. Essential hypertension XARELTO 15 mg TAKE 1 TABLET BY 30 tablet 2 05/09/2019 Active tabletIndications: MOUTH ONCE A DAY Atrial fibrillation, unspecified type documented as of this encounter (statuses as of 05/13/2019) Active Problems Problem Noted Date Spontaneous ecchymoses [...] as of this encounter (statuses as of 05/13/2019) Immunizations Name Administration Dates Next Due HEP [...] Treatment Date Type Specialty Care Team Description 06/13/2019 Nurse Visit Cardiology Visit, Adc Nurse 08/13/2019 Office Visit Endocrinology Diabetes & Duncan Castle MD Metabolism [address] [place] [address] [phone] 09/08/2019 Office Visit Cardiology Sriram Heath M D [address] [place] [address] [place], [place] [address] [phone] Health Maintenance Due Date Last Done Comments [...] of this encounter Implants Implanted Type Area Polytechnic Registrar Device Shelf Model / Identifier Expiration Serial / Date Lot Defibrillator DEFIBRILLATOR Medtronic DT BA1D1 / [id number] / documented as of this encounter Results Not on filedocumented in this encounter Insurance Payer Benefit Plan / Subscriber ID Effective Phone Address T ype Group Dates [facility] [id number] 2019-Nuria Langford HEALTHCARE - MEDICARE nt HMO MANAGED MEDICARE ADVANTAGE documented as of this encounter Advance Directives Name Relationship Healthcare Agent Communication Relationship Marcella Schmitz Child Primary healthcare agent [phone] (Mobile) nadia [email or web address]
--- OUTSIDE RECORDS SUMMARY | 2019-07-16 14:16 | XMS REPORT | Summary of Care ---
:1945 Author Organization [facility] - [facility] Address [address] [place] [address] Care Team Providers Name Role Phone Ortega Dorsey MD Crown Ironer Lauryn Moscoso MD Primary Care Provider Lauren Dickinson DO Wig Comber Reason for Visit Reason Comments Hypertension Encounter Details Date Type Department Care Team Description 05/20/2019 Telemedicine Visit [facility] Sriram Heath, Chronic systolic heart failure (Primary Dx); Cardiology- PAF (paroxysmal atrial fibrillation); [address] Essential hypertension [address] [place] [address], [address] [place] [address] [phone] Allergies No Known Allergiesdocumented as of this encounter (statuses as of 05/20/2019) Medications Medication Sig Dispensed Refills Start End Date Status Date Blood-Glucose Meter Check glucose 1 Each 0 Active Kit once daily 8 before breakfast; Diagnosis code E11.9 blood sugar Check glucose 50 Strip Acti ve diagnostic (BLOOD once daily 8 GLUCOSE TEST) strip before breakfast; Diagnosis code E11.9 Lancets Misc Check glucose 50 Each 11 Act fernando once daily 8 before breakfast; [...] as initial encounter needed (headache and/or nausea). phenytoin Extended TAKE 1 270 capsule 1 [...] mg TAKE 1 TABLET 30 tablet 2 Ac tive tabletIndications: BY MOUTH ONCE 0 Atrial A DAY fibrillation, unspecified type sacubitril-valsarta Take 1 tablet 60 tablet 2 Active n (ENTRESTO) 24-26 by mouth 2 0 mg (two) times tabletIndications: daily. Chronic systolic heart failure sacubitril-valsarta Take 0.5 60 tablet 2 05/20/19 Discontinued n (ENTRESTO) 24-26 tablets by 9 20 (Reorder) mg mouth 2 (two) tabletIndications: times daily. Chronic systolic heart failure documented as of this encounter (statuses as of 05/20/2019) Active Problems Problem Noted Date Spontaneous ecchymoses [...] as of this encounter (statuses as of 05/20/2019) Immunizations Name Administration Dates Next Due HEP [...] Signs Not on filedocumented in this encounter Progress Notes Sriram Heath MD - 05/20/2019 1:40 PM CDT CARDIOLOGY CLINIC NOTE 05/20/2019 Reason for Referral/Presenting Complaint: HFpEF, Afib PCP: Kylah Moscoso History of Present Illness: Teena Simpson is a 74 years old female with history of HFrEF (NICM, EF 20-25% per echo 03/05/17, NYHA functional class III, Stage C) 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 In 02/2017 she was admitted to [facility] for syncope and ICD shocks due to VT. Was initiated on amiodarone. In 01/2018 she was admitted to [facility] for volume overload. Admitted to [facility] in 06/2018 for chest pain. FL ruled out. Admitted to [facility] in 11/2018 for dizziness and orthostasis. Lasix was reduced. Coreg changed to metoprolol. Amiodarone was stopped by HF team due to hyperthyroidism. Last visit she was seen for R big toe tip blister and black color. RLE pain with walking, RLE edema.[place] and venous duplex negative. For the past 2-3 days her BP has been elevated around 140-160s. Mild headache. EKG--04/28/2019--reviewed by me--Atrial sense V-paced with PVCs/NSVT Review of Systems: General: (-) fever, (-) chills, (-) weight change, (-) dizziness, (+) fatigue Skin: (-) rash HEENT: (-) headache, (-) change in vision Neck: (-) difficulty swallowing Heme: negative Resp: (-) cough, (+) dyspnea on exertion Cardio: (-) chest pain, (-) palpitations, (-) syncope GI: (-) vomiting, (-) [...] Current Outpatient Medications Medication Sig Dispense Refill sacubitril-valsartan (ENTRESTO) 24-26 mg tablet Take 1 tablet by mouth 2 (two) times daily. 60 tablet 2 XARELTO 15 mg tablet TAKE 1 TABLET BY MOUTH ONCE A DAY 30 tablet 2 metoprolol succinate XL 50 mg 24 hr [...] CAPSULES IN THE EVENING 270 capsule 1 metoclopramide HCl 10 mg tablet Take 1 tablet by mouth every 6 (six) hours as needed (headache and/or nausea). 20 tablet 0 traMADol 50 mg tablet Take 1 tablet by mouth every 6 (six) hours as needed (pain). 20 tablet 0 insulin NPH human isophane (NOVOLIN N SC) inject under the skin. 20 units inj SC qAM, 26 units qPM insulin regular human (NOVOLIN R REGULAR U-100 INSULN) 100 unit/mL injection inject under the skin. Per Sliding scale blood sugar diagnostic (BLOOD GLUCOSE TEST) strip [...] file Gets together: Not on file Attends orthodox service: Not on file Active member of [...] Onset Diabetes Mother Diabetes Brother Physical Examination: Constitutional: Alert and in no distress Respiratory: Breathing comfortably Neurology: Answers questions appropriately Cardiovascular testing: EKG: Atrial sense ventricular paced [...] stress test--02/2017--no ischemia Assessment/Plan: ICD-10-CM ICD-9-CM 1. Chronic systolic heart failure I50.22 428.22 2. PAF (paroxysmal atrial fibrillation) I48.0 427.31 3. Essential hypertension I10 401.9 HTN--Her BP is elevated now. Will increase Entresto to 1 table BID--24/26 mg. Now she is taking 0.5 tab BID. If BP is still elevated, will continue to titrate up if BMP remains acceptable. HFrEF--Her volume status has improved. Currently taking lasix 20 mg every other day. On Toprol XL/entresto. Low salt diet. PAfib--Now paced rhythm but probably pAfib. Off amiodarone due to thyroid side effects. On Xarelto. No bleeding. Will increase Toprol XL to 100 mg BID. S/p ROLLER SKATE REPAIRER-D. Will refer to EP. ASHLYN--unable to tolerate C-PAP. Refer to sleep medicine. Carotid artery disease--bilateral moderate disease. On high intensity lipitor. LDL 54. Repeat carotid duplex next visit. Patient was counseled for lifestyle modifications including: diet, exercise and weight loss. RTC 1 month Telehealth service ? Verbal consent obtained from patient Teena Simpson for telehealth sevice provided ? My location: [facility] cardiology clinic ? Patient location: Home ? Format: Telephone ? A total of 15 minutes spent on the telephone with the patient Sriram Heath MD, FACC, MADISYN Political Cartoonist, Division of Cardiology [facility] documented in this encounter Plan of Treatment Date Type Specialty Care Team Description 06/13/2019 Nurse Visit Cardiology Visit, Adc Nurse 06/23/2019 Telemedicine Visit Cardiology Sriram Heath MD [address] [facility] [address] [place] [address] 15 [phone] 08/13/2019 Office Visit Endocrinology Diabetes & Duncan Castle MD Metabolism [address] [place] [address] [phone] 09/08/2019 Office Visit Cardiology Sriram Heath M D [address] [facility] [address] [place] [address] [phone] Health Maintenance Due Date Last Done Comments DTaP,Tdap,and Td Vaccines ( - 1957 Tdap) Zoster Recombinant Vaccine 1996 [...] of this encounter Implants Implanted Type Area Catshovel Driver Device Shelf Model / Identifier Expiration Serial / Date Lot Defibrillator DEFIBRILLATOR Medtronic DT [id number] / [id number] / documented as of this encounter Results Not on filedocumented in this encounter Visit Diagnoses Diagnosis Chronic systolic heart failure - Primary PAF (paroxysmal atrial fibrillation) Atrial fibrillation Essential hypertension Unspecified essential hypertension documented in this encounter Insurance Payer Benefit Plan / Subscriber ID Effective Phone Address T ype Group Dates [facility] [id number] 2019-Nuria javier [facility] HEALTHCARE - MEDICARE nt HMO MANAGED MEDICARE ADVANTAGE (Home) [place] [address] documented as of this encounter Advance Directives Name Relationship Healthcare Agent Communication Relationship Marcella Schmitz Child Primary healthcare agent [phone] (Mobile) nadia [email or web address]
--- OUTSIDE RECORDS SUMMARY | 2019-07-16 14:16 | XMS REPORT | Summary of Care ---
:1945 Author Organization [facility] - [facility] Address [address] [place], [place] [address] Care Team Providers Name Role Phone Willian Ortega Lester MD Proof Reader [phone] Lauryn Moscoso MD Primary Care Provider Lauren Dickinson DO Vp Revenue Cycle Reason for Visit Reason Comments Assessment Encounter Details Date Type Department Care Team Description 05/20/2019 Telephone [facility] Family Medicine Kylah Mart MD Assessment - [address] [address] [place] [address] [place] [address] [phone] Allergies No Known Allergiesdocumented as of this encounter (statuses as of 05/20/2019) Medications Medication Sig Dispensed Refills Start Date [...] Treatment Date Type Specialty Care Team Description 05/20/2019 Telemedicine Visit Cardiology Sriram Heath MD [address] [place] [address] [address] [place], [place] [address] [phone] 06/13/2019 Nurse Visit Cardiology Visit, Adc Nurse 08/13/2019 Office Visit Endocrinology Diabetes & Duncan Castle MD Metabolism [address] [phone] 09/08/2019 Office Visit Cardiology Sriram Heath M D [address] [place] [address] [address] [place], [place] [address] [phone] Health Maintenance Due Date Last Done Comments [...] of this encounter Implants Implanted Type Area Assistant Manager Airside Operations Device Shelf Model / Identifier Expiration Serial / Date Lot Defibrillator DEFIBRILLATOR Medtronic DT [id number] / [id number] / documented as of this encounter Results Not on filedocumented in this encounter Insurance Payer Benefit Plan / Subscriber ID Effective Phone Address T ype Group Dates [facility] [id number] 2019-Prese Me javier Adv HEALTHCARE - MEDICARE HMO MANAGED MEDICARE ADVANTAGE documented as of this encounter Advance Directives Name Relationship Healthcare Agent Communication Relationship Marcella Schmitz Child Primary healthcare agent [email or web address]
--- OUTSIDE RECORDS SUMMARY | 2019-07-16 14:17 | XMS REPORT | Summary of Care ---
:1945 Author Organization [facility] - [facility] Address [address] [place], [place] [address] Care Team Providers Name Role Phone Willian Ortega Lester MD Apprentice Plant Attendant [phone] Lauryn Moscoso MD Primary Care Provider Lauren Dickinson DO Cooking Instructor Reason for Visit Reason Comments Refill Request Encounter Details Date Type Department Care Team Description 05/25/2019 Refill [facility] Family Medicine Kylah Mart MD Refill Request - [address] [address] [place] [address] [place] [address] [phone] Allergies No Known Allergiesdocumented as of this encounter (statuses as of 05/26/2019) Medications Medication Sig Dispensed Refills Start Date [...] encounter needed (headache and/or nausea). phenytoin Extended 100 TAKE 1 CAPSULE 270 [...] ONCE A DAY Atrial fibrillation, unspecified type sacubitril-valsartan Take 1 tablet by 60 tablet 2 05/20/2019 Active (ENTRESTO) 24-26 mg mouth 2 (two) tabletIndications: times daily. Chronic systolic heart failure documented as of this encounter (statuses as of 05/26/2019) Active Problems Problem Noted Date Spontaneous ecchymoses [...] as of this encounter (statuses as of 05/26/2019) Immunizations Name Administration Dates Next Due HEP [...] 06/13/2019 Nurse Visit Cardiology Visit, Adc Nurse 06/25/2019 Office Visit Cardiology Sriram Heath M D [address] [facility] [address] [place], [place] [address] [phone] 08/13/2019 Office Visit Endocrinology Diabetes & Duncan Castle MD Metabolism [facility] [place] [address] [phone] 09/08/2019 Office Visit Cardiology Sriram Heath M D [address] [place] [address] [address] [place], [place] [address] [phone] Health Maintenance Due Date Last Done Comments [...] of this encounter Implants Implanted Type Area Real Estate Underwriter Device Shelf Model / Identifier Expiration Serial / Date Lot Defibrillator DEFIBRILLATOR Medtronic DT [id number] / [id number] / documented as of this encounter Results Not on filedocumented in this encounter Visit Diagnoses Diagnosis Labile hypertension Unspecified essential hypertension documented in this encounter Insurance Payer Benefit Plan / Subscriber ID Effective Phone Address T ype Group Dates [facility] [id number] 2019-Nuria javier [facility] - MEDICARE nt HMO MANAGED MEDICARE ADVANTAGE documented as of this encounter Advance Directives Name Relationship Healthcare Agent Communication Relationship Marcella Schmitz Child Primary healthcare agent [phone] (Mobile) nadia [email or web address]
--- OUTSIDE RECORDS SUMMARY | 2019-07-16 14:17 | XMS REPORT | Summary of Care ---
:1945 Author Organization [facility] - [facility] Address [address] [place], [place] [id number] Care Team Providers Name Role Phone Willian Ortega Lester MD Can Conveyor Feeder [phone] Lauryn Moscoso MD Primary Care Provider Lauren Dickinson DO Investigator Fraud Reason for Visit Reason Comments Refill Request Encounter Details Date Type Department Care Team Description 05/28/2019 Refill [facility] Family Medicine Kylah Mart MD Refill Request - [address] [address] [place] [address] [place] [address] [phone] Allergies No Known Allergiesdocumented as of this encounter (statuses as of 05/29/2019) Medications Medication Sig Dispensed Refills Start Date [...] as needed initial encounter (headache and/or nausea). digoxin 125 mcg Take 1 tablet 30 [...] ONCE Atrial A DAY fibrillation, unspecified type sacubitril-valsarta Take 1 tablet 60 tablet 2 05/20/2019 Active n (ENTRESTO) 24-26 by mouth 2 mg (two) times tabletIndications: daily. Chronic systolic heart failure PHENYTOIN EXTENDED TAKE 1 CAPSULE 270 capsule 1 05/29/2019 Active 100 mg BY MOUTH EVERY capsuleIndications: MORNING AND 2 Seizure disorder CAPSULES IN THE EVENING phenytoin Extended TAKE 1 CAPSULE 270 capsule 1 12/30/2018 Discontinued 100 mg BY MOUTH EVERY 0 capsuleIndications: MORNING AND 2 Seizure disorder CAPSULES IN THE EVENING documented as of this encounter (statuses as of 05/29/2019) Active Problems Problem Noted Date Spontaneous ecchymoses [...] as of this encounter (statuses as of 05/29/2019) Immunizations Name Administration Dates Next Due HEP [...] Office Visit Cardiology Sriram Heath M D [address] [place] [address] [phone] 08/13/2019 Office Visit Endocrinology Diabetes & CastleDuncan MD Metabolism [address] [place] [address] [phone] 09/08/2019 Office Visit Cardiology Sriram Heath M D [address] [place] [address] [address] [place], [place] [address] [phone] Health Maintenance Due Date Last Done Comments [...] of this encounter Implants Implanted Type Area [employer] War[employer] Medic Device Shelf Model / Identifier Expiration Serial / Date Lot Defibrillator DEFIBRILLATOR Medtronic DT BA1D1 / [id number] / documented as of this encounter Results Not on filedocumented in this encounter Visit Diagnoses Diagnosis Seizure disorder Unspecified epilepsy without mention of intractable epilepsy documented in this encounter Insurance Payer Benefit Plan / Subscriber ID Effective Phone Address T ype Group Dates [facility] [id number] 2019-Nuria Langford HEALTHCARE - MEDICARE nt O MANAGED MEDICARE ADVANTAGE documented as of this encounter Advance Directives Name Relationship Healthcare Agent Communication Relationship Marcella Schmitz Child Primary healthcare agent [email or web address] [email or web address]
[2019-07-16 14:18] LABS: Protime INR 1.01
--- OUTSIDE RECORDS SUMMARY | 2019-07-16 14:18 | XMS REPORT | Summary of Care ---
:1945 Author Organization [facility] - [facility] Address [address] [place], [place] [address] Care Team Providers Name Role Phone Ortega Dorsey MD System Admin [phone] Lauryn Moscoso MD Primary Care Provider Lauren Dickinson DO Affirmative Action Officer Reason for Visit Reason Comments LAB WORK Auth/Cert Status Reason Specialty Diagnoses / Procedures Referred By C ontact Referred To Contact Phlebotomy Diagnoses PAF (paroxysmal atrial fibrillation) - Primary Adc Po b Lab Draw Procedures cmp Professional Office Building [address] [place] [address] , [address] [place] [address] Phone: Fax: Encounter Details Date Type Department Care Team Description 06/30/2019 Hip Hop Artist Visit [facility] Sriram Heath MD [address] [place] [address] [address] [place] [address] PAF (paroxysmal Professional Office Pob, Adc Lab Main atrial Building Phlebotomy fibrilla tion) Lab Professional Office Building [address] [place] [address] , [address] [place] [address] Allergies No Known Allergiesdocumented as of this encounter (statuses as of 06/30/2019) Medications Medication Sig Dispensed Refills Start Date [...] as initial encounter needed (headache and/or nausea). digoxin 125 mcg (0.125 Take 1 tablet [...] tabletIndications: times daily. Chronic systolic heart failure PHENYTOIN EXTENDED 100 TAKE 1 CAPSULE 270 capsule 1 05/29/2019 Active mg capsuleIndications: BY MOUTH EVERY Seizure disorder MORNING AND 2 CAPSULES IN THE EVENING documented as of this encounter (statuses as of 06/30/2019) Active Problems Problem Noted Date Spontaneous ecchymoses [...] as of this encounter (statuses as of 06/30/2019) Immunizations Name Administration Dates Next Due HEP [...] Travel End No recent travel history available. COVID-19 Exposure Response Date Recorded In the last month, have you been in contact with No / Unsure 06/30/2019 7:52 AM CDT someone who was confirmed or suspected to have Coronavirus / COVID-19? documented as of this encounter Last Filed Vital Signs Not on filedocumented in this encounter Plan of Treatment Date Type Specialty Care Team Description 08/13/2019 Office Visit Endocrinology Diabetes & Duncan Castle MD Metabolism [address] [place] [address] [phone] 08/15/2019 Nurse Visit Cardiology Visit, Adc Nurse 09/08/2019 Office Visit Cardiology Sriram Heath M D [address] [place] [address] [place] [address] [phone] Name Type Priority Associated Diagnoses Date/Ti me BASIC METABOLIC PANEL LAB Routine PAF (paroxysmal atr ial 06/30/2019 7:58 AM CDT (NA, K, CL, CO2, fibrillation) GLUCOSE, BUN, CREATININE, CA) Health Maintenance Due Date Last Done Comments DTaP,Tdap,and Td Vaccines (1 - 1957 Tdap) Zoster Recombinant Vaccine 1996 (SHINGRIX) (1 of 2) Medicare Wellness Visit 2011 Osteoporosis Screening 2011 PNEUMOCOCCAL VACCINES 65+ (2 of 2 02/20/2016 02/19/2015, - PPSV23) LDL-C 06/18/2019 06/17/2018, 06/21/2017, 10/04/2003 Breast Cancer Screening 07/09/2019 07/08/2018 (MAMMOGRAM) EYE EXAM 08/06/2019 08/05/2018, 06/22/2017, 06/22/2017, Additional history exists HgA1C 10/08/2019 04/09/2019, 12/04/2018, 06/26/2018, Additional history exists INFLUENZA VACCINE (Season Ended) 2019 FOOT EXAM 01/07/2020 01/06/2019, 01/06/2019, 06/05/2018, Additional history exists CREATININE (SERUM) 01/20/2020 01/19/2019, 01/15/2019, 12/09/2018, Additional history exists COLONOSCOPY 02/20/2020 02/19/2010 (Previously completed) URINE MICROALBUMIN 04/09/2020 04/09/2019, 06/17/2018, 06/21/2017 HEPATITIS C (HCV) SCREEN Completed 06/21/2017 documented as of this encounter Implants Implanted Type Area Fire Patroller Device Shelf Model / Identifier Expiration Serial / Date Lot Defibrillator DEFIBRILLATOR Medtronic DT [id number] / [id number] / documented as of this encounter Results Not on filedocumented in this encounter Visit Diagnoses Diagnosis PAF (paroxysmal atrial fibrillation) Atrial fibrillation documented in this encounter Insurance Payer Benefit Plan / Subscriber ID Effective Phone Address T ype Group Dates [facility] [id number] 2019-Nuria [facility] HEALTHCARE - MEDICARE HMO MANAGED MEDICARE ADVANTAGE (Home) [place] [address] documented as of this encounter Advance Directives Name Relationship Healthcare Agent Communication Relationship Marcella Schmitz Child Primary healthcare agent [phone] (Mobile) nadia [email or web address]
--- OUTSIDE RECORDS SUMMARY | 2019-07-16 14:18 | XMS REPORT | Summary of Care ---
:1945 Author Organization [facility] Address [address] [place] [address] Care Team Providers Name Role Phone Ortega Dorsey MD Spin Instructor [phone] Lauryn Moscoso MD Primary Care Provider Lauren Dickinson DO Heavy Threader Reason for Referral (Routine) Status Reason Specialty Diagnoses / Referred By Referred To Procedures Contact Contact New Request Diagnoses Bilateral carotid artery stenosis Sriram Heath MD Procedures CAROTID DUPLEX BILATERAL BY VASCULAR LAB [address] [place] [address] [address] [place], [place] [address] (Routine) Status Reason Specialty Diagnoses / Referred By Referred To Procedures Contact Contact New Request Cardiology Diagnoses Chronic systolic heart failure Sriram Heath MD Procedures ECHO ROUTINE W/DOPPLER COLOR Preferred Location: [facility] [address] [place] [address] [address] [place], [place] [address] Reason for Visit Reason Comments Follow-up Encounter Details Date Type Department Care Team Description 06/25/2019 Telemedicine Visit [facility] Sriram Heath PAF (pa roxysmal atrial fibrillation) (Primary Dx); Cardiology- MD Chronic diastolic congestive heart failu re; [address] Other hyperlipidemia; [address] [place] [address] Essential hypertension; [facility], [address] Obesity (BMI 30-39.9); [place], [place] Cardiac resynch ronization therapy defibrillator (SILK WEAVER-D) in place; [id number] Bilateral carotid artery stenosis; [phone] Chronic systolic heart failure Allergies No Known Allergiesdocumented as of this encounter (statuses as of 06/25/2019) Medications Medication Sig Dispensed Refills Start Date [...] as of this encounter (statuses as of 06/25/2019) Active Problems Problem Noted Date Spontaneous ecchymoses [...] as of this encounter (statuses as of 06/25/2019) Immunizations Name Administration Dates Next Due HEP [...] encounter Progress Notes Sriram Heath MD - 06/25/2019 9:40 AM CDT CARDIOLOGY CLINIC NOTE 06/25/2019 Reason for Referral/Presenting Complaint: HFpEF, Afib PCP: Kylah Moscoso History of Present Illness: Teena Simpson is a 74 years old female with history of HFrEF (NICM, EF 20-25% per echo 03/05/17, NYHA functional class III, Stage C) s/p SILK WEAVER-D at OSH in 2011, pAFib on Xarelto, NSVT, DM2, HTN, HLD, ASHLYN noncompliant with CPAP, h/o PE, and epilepsy. In 02/2017 she was admitted to [facility] for syncope and ICD shocks due to VT. Was initiated on amiodarone. In 01/2018 she was admitted to [facility] for volume overload. Admitted to [facility] in 06/2018 for chest pain. AR ruled out. Admitted to [facility] in 11/2018 for dizziness and orthostasis. Lasix was reduced. Coreg changed to metoprolol. Amiodarone was stopped by HF team due to hyperthyroidism. She was seen for R big toe tip blister and black color. RLE pain with walking, RLE edema. [place] and venous duplex negative. Last visit she was seen for elevated BP. We increased Entresto. Her BP is normal now. Lost a few lbs. EKG--04/28/2019--reviewed by me--Atrial [...] Current Outpatient Medications Medication Sig Dispense Refill PHENYTOIN EXTENDED 100 mg capsule TAKE 1 CAPSULE BY MOUTH EVERY MORNING AND 2 CAPSULES IN THE EVENING 270 capsule 1 sacubitril-valsartan (ENTRESTO) 24-26 mg tablet Take 1 [...] (worsening swelling or SOB). 15 tablet 0 metoclopramide HCl 10 mg tablet Take 1 [...] file Gets together: Not on file Attends methodist service: Not on file Active member of [...] stress test--02/2017--no ischemia Assessment/Plan: ICD-10-CM ICD-9-CM 1. PAF (paroxysmal atrial fibrillation) I48.0 427.31 2. Chronic diastolic congestive heart failure I50.32 428.32 428.0 3. Other hyperlipidemia E78.49 272.4 4. Essential hypertension I10 401.9 5. Obesity (BMI 30-39.9) E66.9 278.00 6. Cardiac resynchronization therapy defibrillator (SILK WEAVER-D) in place Z95.810 V45.02 7. Bilateral carotid artery stenosis I65.23 433.10 433.30 8. Chronic systolic heart failure I50.22 428.22 HTN--Her BP is normal now. We increased Entresto to 1 table BID--24/26 mg. Will get BMP to guide therapy. HFrEF--Her volume status has improved. Currently taking lasix 20 mg every day. On Toprol XL/entresto. Low salt diet. Will repeat ECHO. PAfib--Now paced rhythm but probably pAfib. Off amiodarone due to thyroid side effects. On Xarelto. No bleeding. We increased Toprol XL to 100 mg BID. S/p SILK WEAVER- D. Will refer to EP. ASHLYN--unable to tolerate C-PAP. Refer to sleep medicine. Carotid artery disease--bilateral moderate disease. On high intensity lipitor. LDL 54. Repeat carotid duplex. Patient was counseled for lifestyle modifications including: diet, exercise and weight loss. RTC 4 month Telehealth service ? Verbal consent obtained from patient Teena Simpson for telehealth sevice provided ? My location: [facility] cardiology clinic ? Patient location: Home ? Format: Telephone. Patient does not have smartphone or internet ? A total of 25 minutes spent on the telephone with the patient Sriram Heath MD, FACC, MADISYN Supercharge Repair Supervisor, Division of Cardiology [facility] documented in this encounter Plan of Treatment Date Type Specialty Care Team Description 08/13/2019 Office Visit Endocrinology Diabetes & Duncan Castle MD Metabolism [address] [place] [address] [phone] 08/15/2019 Nurse Visit Cardiology Visit, Adc Nurse 09/08/2019 Office Visit Cardiology Sriram Heath M D [address] [place] [address] [place] [address] [phone] Name Type Priority Associated Diagnoses Order S chedule BASIC METABOLIC PANEL LAB Routine PAF (paroxysmal atr ial 1 Occurrences starting (NA, K, CL, CO2, fibrillation) 06/25/2019 until GLUCOSE, BUN, 09/25/2019 CREATININE, CA) Health Maintenance Due Date Last [...] of this encounter Implants Implanted Type Area Retort Operator Device Shelf Model / Identifier Expiration Serial / Date Lot Defibrillator DEFIBRILLATOR Medtronic DT [id number] / [id number] / documented as of this encounter Results Not on filedocumented in this encounter Visit Diagnoses Diagnosis PAF (paroxysmal atrial fibrillation) - P rimary Atrial fibrillation Chronic diastolic congestive heart failu re Chronic diastolic heart failure Other hyperlipidemia Essential hypertension Unspecified essential hypertension Obesity (BMI 30-39.9) Obesity, unspecified Cardiac resynchronization therapy defibr illator (SILK WEAVER-D) in place Bilateral carotid artery stenosis Occlusion and stenosis of multiple and b ilateral precerebral arteries without mention of cerebral infarction Chronic systolic heart failure documented in this encounter Insurance Payer Benefit Plan / Subscriber ID Effective Phone Address T ype Group Dates [facility] [id number] 2019-Nuria javier [facility]VANTAGE (Home) [place] [address] documented as of this encounter Advance Directives Name Relationship Healthcare Agent Communication Relationship Marcella Schmitz Child Primary healthcare agent [phone] (Mobile) nadia [email or web address]
--- OUTSIDE RECORDS SUMMARY | 2019-07-16 14:19 | XMS REPORT | Summary of Care ---
:1945 Author Organization [facility] Address [address] [place], [place] [id number] Care Team Providers Name Role Phone Ortega Dorsey MD Field Cane Scale Clerk [phone] Lauryn Moscoso MD Primary Care Provider Lauren Dickinson DO Utilities And Maintenance Supervisor Reason for Visit Reason Comments Lab Results Encounter Details Date Type Department Care Team Description 07/01/2019 Telephone [facility] Cardiology- Guille Heath MD Lab Results [address] [facility], [address] [place] [address] [place] [address] [phone] Allergies No Known Allergiesdocumented as of this encounter (statuses as of 07/01/2019) Medications Medication Sig Dispensed Refills Start Date [...] as of this encounter (statuses as of 07/01/2019) Active Problems Problem Noted Date Spontaneous ecchymoses [...] as of this encounter (statuses as of 07/01/2019) Immunizations Name Administration Dates Next Due HEP [...] Diabetes & Duncan Castle MD Metabolism [address] [place] [address] [phone] 08/15/2019 Nurse Visit Cardiology Visit, Adc Nurse 09/08/2019 Office Visit Cardiology Sriram Heath M D [address] [place] [address] [phone] Health Maintenance Due Date Last Done Comments [...] 01/07/2020 01/06/2019, 01/06/2019, 06/05/2018, Additional history exists COLONOSCOPY 02/20/2020 02/19/2010 (Previously completed) URINE MICROALBUMIN 04/09/2020 04/09/2019, 06/17/2018, 06/21/2017 CREATININE (SERUM) 06/29/2020 06/30/2019, 01/19/2019, 01/15/2019, Additional history exists HEPATITIS C (HCV) SCREEN Completed 06/21/2017 documented as of this encounter Implants Implanted Type Area Sorting Machine Operator Device Shelf Model / Identifier Expiration Serial / Date Lot Defibrillator DEFIBRILLATOR Medtronic DT [id number] / [id number] / documented as of this encounter Results Not on filedocumented in this encounter Insurance Payer Benefit Plan / Subscriber ID Effective Phone Address T ype Group Dates [facility] [id number] 2019-Prese Me javier [facility] HEALTHCARE - MEDICARE HMO MANAGED MEDICARE ADVANTAGE documented as of this encounter Advance Directives Name Relationship Healthcare Agent Communication Relationship Marcella Schmitz Child Primary healthcare agent nadia [email or web address]
[2019-07-16] MEDS ORDERED: NA CHLORIDE 0.9% 500 ML ONE (15:01)
--- NOTE | 2019-07-16 17:05 | P.HP ---
Certification for Inpatient Patient admitted to: Inpatient Patient will require the following post-hospital care: None Practitioner: I am a practitioner with admitting privileges, knowledge of patient current condition, hospital course, and medical plan of care. Services: Services provided to patient in accordance with Admission requirements found in Title 42 Section 412.3 of the Code of Federal Regulations Patient History Date of Service: 07/16/19 Reason for admission: Palpitation History of Present Illness: 74-year-old female with past medical history hypertension, AFib, chronic systolic CHF with EF of 20%, status post AICD/pacemaker, admitted with palpitation. At the time of interview patient is sedated hence most of the history is obtained from the chart review and talking to the ER physician.. The patient came to the ER with shortness of breath and palpitation and was found to have wide complex tachycardia. She was found to be hypotensive hence was shocked, with a return of cardiac rhythm. Patient was given sedation for cardioversion. No fever no chills Allergies No Known Drug Allergies Allergy (Verified 08/17/14 14:03) Unknown NKDA Allergy (Uncoded 07/22/13 08:41) Unknown No Known Allergies Allergy (Uncoded 06/07/15 18:42) Unknown Home medications list reviewed: Yes Home Medications: Atorvastatin Calcium 40 mg PO BEDTIME 08/27/15 Carvedilol Phosphate [Coreg Cr] 40 mg PO DAILY 08/27/15 Gabapentin [Neurontin*] 300 mg PO BEDTIME 08/27/15 Insulin Aspart [Novolog*] 15 units SQ BID 08/27/15 Insulin Glargine Human [Lantus*] 50 units SQ BEDTIME 08/27/15 PHENYTOIN ER Cap [Dilantin ER Cap*] 200 mg PO BID 08/27/15 Rivaroxaban [Xarelto*] 15 mg PO DAILY 08/27/15 Spironolactone [Aldactone*] 25 mg PO DAILY 08/27/15 Sacubitril/Valsartan [Entresto 49 mg-51 mg Tablet] 1 tab PO BID #60 tab 09/23/15 Furosemide [Lasix*] 20 mg PO DAILY 04/07/16 ALPRAZolam [Alprazolam] 0.25 mg PO BEDTIME #20 tablet 04/08/16 Ciprofloxacin HCl [Cipro 500 MG Tablet] 500 mg PO BID #10 tab 04/08/16 - Past Medical/Surgical History Diabetic: Yes Past Medical History: Reviewed- Non-Contributory -: seizures -: afib -: iddm -: hypertension -: hyperlipidemia -: chf -: bladder infection -: cad -: neuropathy -: w?EF 20-25% Past Surgical History: Reviewed- Non-Contributory -: defib/pacemaker placement x2 -: exploratory lap -: appendectomy - Family History Family History: Reviewed- Non-Contributory - Family History Father -: Lung disease Mother -: Heart disease, Hypertension, Diabetes Sister -: Diabetes Brother -: Diabetes, Kidney disease - Social History Smoking Status: Never smoker Alcohol use: No CD- Drugs: No Caffeine use: Yes Review of Systems is unable to be obtained Physical Examination - Vital Signs Temperature: 97.8 F Blood Pressure: 100/62 Pulse: 88 Respirations: 18 Pulse Ox (%): 97 - Physical Exam General: In no apparent distress, Obese, Other (Sleeping comfortably) HEENT: Atraumatic, Normocephalic Neck: Supple, 2+ carotid pulse no bruit Respiratory: Clear to auscultation bilaterally, Normal air movement Cardiovascular: Irregular heart rate/rhythm Capillary refill: <2 Seconds Gastrointestinal: Soft and benign, W/out hepatosplenomegaly Musculoskeletal: No clubbing, No swelling Integumentary: No rashes, No breakdown Neurological: Other (Sedated) Lymphatics: No axilla or inguinal lymphadenopathy Rectal: Deferred - Studies Laboratory Data (last 24 hrs) 07/16/19 13:43: PT 11.9, INR 1.01 07/16/19 12:45: WBC 7.9, Hgb 11.3 L, Hct 34.0 L, Plt Count 224 07/16/19 12:45: Sodium 142, Potassium 4.3, BUN 39 H, Creatinine 1.63 H, Glucose 210 H, Magnesium 2.4, Total Bilirubin 0.2, AST 16, ALT 21, Alkaline Phosphatase 150 H Laboratory Last Values WBC 7.9 K/uL (4.3-10.9) 07/16/19 12:45 RBC 3.57 M/uL (3.86-4.86) L 07/16/19 12:45 Hgb 11.3 g/dL (12.0-15.0) L 07/16/19 12:45 Hct 34.0 % (36.0-45.0) L 07/16/19 12:45 MCV 95.3 fL (80-100) 07/16/19 12:45 MCH 31.7 pg (27.0-35.0) 07/16/19 12:45 MCHC 33.2 g/dL (32.0-36.0) 07/16/19 12:45 RDW 13.9 % (12.1-15.2) 07/16/19 12:45 Plt Count 224 K/uL (152-406) 07/16/19 12:45 MPV 10.9 fL (7.6-11.3) 07/16/19 12:45 Neutrophils % 67.7 % (41.7-73.7) 07/16/19 12:45 Lymphocytes % 22.1 % (15.3-44.8) 07/16/19 12:45 Monocytes % 7.2 % (3.3-12.3) 07/16/19 12:45 Eosinophils % 2.3 % (0-4.4) 07/16/19 12:45 Basophils % 0.7 % (0-1.3) 07/16/19 12:45 Absolute Neutrophils 5.4 K/uL (1.8-8.0) 07/16/19 12:45 Absolute Lymphocytes 1.8 K/uL (0.7-4.9) 07/16/19 12:45 Absolute Monocytes 0.6 K/uL (0.1-1.3) 07/16/19 12:45 Absolute Eosinophils 0.2 K/uL (0-0.5) 07/16/19 12:45 Absolute Basophils 0.1 K/uL (0-0.5) 07/16/19 12:45 PT 11.9 SECONDS (9.5-12.5) 07/16/19 13:43 INR 1.01 07/16/19 13:43 Sodium 142 mmol/L (136-145) 07/16/19 12:45 Potassium 4.3 mmol/L (3.5-5.1) 07/16/19 12:45 Chloride 110 mmol/L (98-107) H 07/16/19 12:45 Carbon Dioxide 23 mmol/L (21-32) 07/16/19 12:45 BUN 39 mg/dL (7-18) H 07/16/19 12:45 Creatinine 1.63 mg/dL (0.55-1.3) H 07/16/19 12:45 Estimated GFR 31 mL/min (=/>90) L 07/16/19 12:45 Glucose 210 mg/dL (74-106) H 07/16/19 12:45 Calcium 8.5 mg/dL (8.5-10.1) 07/16/19 12:45 Magnesium 2.4 mg/dL (1.8-2.4) 07/16/19 12:45 Total Bilirubin 0.2 mg/dL (0.2-1.0) 07/16/19 12:45 Direct Bilirubin < 0.1 mg/dL (0-0.2) 07/16/19 12:45 AST 16 U/L (15-37) 07/16/19 12:45 ALT 21 U/L (12-78) 07/16/19 12:45 Alkaline Phosphatase 150 U/L (45-117) H 07/16/19 12:45 Rapid Troponin I < 0.02 ng/mL (0.0-0.045) 07/16/19 12:45 NT-Pro-B Natriuret Pep 1560 pg/mL (<125) H 07/16/19 12:45 Serum Total Protein 7.4 g/dL (6.4-8.2) 07/16/19 12:45 Albumin 3.2 g/dL (3.4-5.0) L 07/16/19 12:45 Globulin 4.2 g/dL (2.3-3.5) H 07/16/19 12:45 Albumin/Globulin Ratio 0.8 (1.1-1.8) L 07/16/19 12:45 Assessment and Plan - Problems (Diagnosis) (1) CHF (congestive heart failure) Onset Date: 09/21/15 Current Visit: No Status: Acute Qualifiers: Qualified Code(s): I50.23 - Acute on chronic systolic (congestive) heart failure (2) CKD (chronic kidney disease) Current Visit: No Status: Chronic (3) Diabetes Current Visit: No Status: Chronic Qualifiers: Diabetes mellitus type: type 2 Diabetes mellitus complication status: without complication (4) Dyspnea Onset Date: 09/21/15 Current Visit: No Status: Acute Qualifiers: Dyspnea type: dyspnea on exertion Qualified Code(s): R06.09 - Other forms of dyspnea (5) Hypertension Current Visit: No Status: Chronic Qualifiers: Hypertension type: essential hypertension Qualified Code(s): I10 - Essential (primary) hypertension (6) Palpitations Onset Date: 09/21/15 Current Visit: No Status: Acute (7) Ventricular arrhythmia Current Visit: No Status: Acute - Advance Directives Does patient have a Living Will: No Does patient have a Durable POA for Healthcare: No Physician Review Additional Text: Wide complex tachycardia History of AFib Acute on chronic systolic heart failure Status post pacemaker Acute kidney injury on CKD stage 2 Diabetes History of hypertension Status post cardioversion in the ER Monitor under telemetry in ICU Cardiology consult Monitor electrolyte Need a device interrogation Will get an echo cardiogram Continue beta-cindy Insulin sliding Scale Cardiac enzymes trended Will get a lipid panel and A1c GI/DVT prophylaxis Advanced directives full code Time Spent Managing Pts Care (In Minutes): 50
[2019-07-16] MEDS: ENOXAPARIN 40 MG/0.4 ML SQ SCH (18:38)
[2019-07-16 19:31] LABS: CKMB Creatine Kinase MB 4.5 ng/mL (0.3-3.6)
[2019-07-16 19:32] LABS: Troponin I 0.66 ng/mL (0.0-0.045)
[2019-07-16 20:00] LABS: Urine Blood TRACE (NEG); Urine Glucose NEGATIVE (NEG); Urine Protein 1+ (NEG); Urine Specific Gravity 1.015 (1.005-1.030)
[2019-07-16] MEDS ORDERED: FUROSEMIDE 40 MG TABLET PO PRN (20:49)
[2019-07-16] MEDS ORDERED: GLUCAGON 1 MG/VIAL IM PRN (20:50)
[2019-07-16] MEDS ORDERED: D50W 25 GM/50 ML SYRINGE/VIAL IV PRN (20:50)
[2019-07-16] MEDS ORDERED: METOPROLOL XL 25 MG TAB PO SCH (21:00)
[2019-07-16] MEDS ORDERED: SACUBITRIL/VALSARTAN 24/26 MG TAB PO SCH (21:00)
[2019-07-16] MEDS: INSULIN -REGULAR HUMAN 50 UNIT/0.5 ML ML SQ SCH (21:00)
[2019-07-16] MEDS: ATORVASTATIN 40 MG TAB PO SCH (21:52)
[2019-07-16] MEDS: PHENYTOIN ER 100 MG CAP PO SCH (21:52)
[2019-07-17 02:51] LABS: Absolute Lymphocytes (CBC) 2.6 K/uL (0.7-4.9); Basophils % 0.6 % (0-1.3); Hematocrit 30.3 % (36.0-45.0); Lymphocytes % 32.6 % (15.3-44.8); MPV 10.8 fL (7.6-11.3); RBC Red Blood Cell Count 3.14 M/uL (3.86-4.86)
[2019-07-17 03:17] LABS: Albumin 2.7 g/dL (3.4-5.0); Bilirubin Total 0.1 mg/dL (0.2-1.0); Magnesium 2.2 mg/dL (1.8-2.4); Phosphorus 4.4 mg/dL (2.5-4.9); Potassium 4.5 mmol/L (3.5-5.1); Protein, Total 6.3 g/dL (6.4-8.2)
[2019-07-17 03:21] LABS: CKMB Creatine Kinase MB 3.8 ng/mL (0.3-3.6); Thyroid Stimulating Hormone 0.873 uIU/mL (0.360-3.740)
[2019-07-17 03:22] LABS: Troponin I 0.52 ng/mL (0.0-0.045)
[2019-07-17] MEDS: ONDANSETRON 4 MG/2 ML VIAL IV PRN (06:17)
[2019-07-17 07:00] LABS: Urine Appearance CLEAR; Urine Bilirubin NEGATIVE (NEG); Urine Blood NEGATIVE (NEG); Urine Color YELLOW; Urine Glucose NEGATIVE (NEG); Urine Protein 1+ (NEG); Urine Specific Gravity 1.015 (1.005-1.030); Urine Urobilinogen 0.2 mg/dL (0.2-1.0)
[2019-07-17 07:14] LABS: Urine Microscopic Reflex ORDER UMIC
[2019-07-17] MEDS: INSULIN -REGULAR HUMAN 50 UNIT/0.5 ML ML SQ SCH ×4 (07:30→20:29)
[2019-07-17 07:55] LABS: Urine Bacteria >50 /HPF (<20); Urine Culture Reflex Order REFLEXED; Urine RBC <5 /HPF (NONE SEEN); Urine White Blood Cell Casts 0-5 /LPF (NONE SEEN)
[2019-07-17] MEDS ORDERED: SACUBITRIL/VALSARTAN 24/26 MG TAB PO SCH (09:00)
[2019-07-17] MEDS: ENOXAPARIN 40 MG/0.4 ML SQ SCH (09:00)
[2019-07-17] MEDS: NPH (HUMAN) 100 UNITS/ML INSULIN SQ SCH ×2 (09:28→17:23)
[2019-07-17] MEDS: METOPROLOL XL 25 MG TAB PO SCH ×2 (09:29→20:05)
[2019-07-17] MEDS: PHENYTOIN ER 100 MG CAP PO SCH ×2 (09:29→20:06)
[2019-07-17] MEDS: DIGOXIN 0.125 MG TABLET PO SCH (09:29)
--- NOTE | 2019-07-17 10:05 | CON ---
Date of Consultation: 07/17/2019 Reason For Consultation: Chest pain and tachycardia. History Of Present Illness: 74-year-old female, history of hypertension, chronic atrial fibrillation , chronic systolic congestive heart failure, ejection fraction of 20% with an ICD in place, diabetes, hypertension, presented to the emergency room due to chest pressure that radiates to the neck with s hortness of breath. Ambulance was called and patient was brought into the emergency room, was found to be in wide-complex tachycardia. She apparently received multiple shocks, reported 3 of them and t hen she went into paced rhythm. Symptoms started around 3 o'clock in the morning woke her up and at the present time she is symptoms free. Patient reported that she does not have any history of tao ry artery disease and reported having coronary angiogram done within the past 2 years that was negati ve. She denies any exertional chest pain. No other complaints. Past Medical History: As outlined above in the HPI. Medications: Refer reconciliation sheet for detailed list. Allergies: NO KNOWN DRUG ALLERGIES. Social History: She does not smoke or drink, use any drugs. Family History: No premature coronary artery disease or cancer. Past Surgical History: Defibrillator placement, appendectomy. Review of Systems: All systems reviewed and were negative except what mentioned in the HPI. Physical Examination: Vital Signs: Her temperature 97.8, pulse 67, breathing at 16, blood pressure is 131/55, saturating 9 9% on room air. General: Pleasant middle-aged female in no distress. Head and neck: Pupils are equal, react to light. Intact eye movements. No JVD. No cervical nodes. Neck supple. Thyroid is not enlarged. Lungs: Clear to auscultation bilaterally. No rhonchi, rales or crackles. No accessory muscle use. Heart: Regular rate and rhythm. No extra sounds. Abdomen: Soft, nontender. Bowel sounds positive. No organomegaly. No hepatosplenomegaly. Extremities: No edema, clubbing, cyanosis. Intact pulses. Skin: No rashes. Neurologic: Alert, awake, oriented x3. No acute deficit appreciated. Investigations: Sodium 146, BUN 38, and creatinine is 1.43. Troponin 0.66 and then down to 0.52. T SH is 0.87. Assessment, Plan, And Recommendations: 1.Chest pain with mild troponin leak. Unknown history if she has coronary artery disease, but she r eported cardiac catheterization in the past 3 years that has been negative. At this point, I will re view the records. If coronary angiogram indeed was negative recently, then this is likely a nonische ezra cardiomyopathy that will be treated medically. Otherwise, if the cardiac cath that was done in t he past was abnormal, we will plan for a coronary angiogram to further evaluate. 2.Wide-complex tachycardia, probably baseline left bundle branch block and this could be a rapid atr ial fibrillation. At any rate, the patient has an ICD in place. We will get that interrogated to id entify the rhythm that was shocked and further plan accordingly. 3.Hypertension. Blood pressure is well controlled. Thank you for this consultation. /CAMERON Voice ID: [id number] Report ID: [id number]
[2019-07-17 11:17] LABS: CKMB Creatine Kinase MB 2.9 ng/mL (0.3-3.6); Troponin I 0.28 ng/mL (0.0-0.045)
[2019-07-17] MEDS: ACETAMINOPHEN 500 MG TAB PO PRN ×2 (12:52→17:29)
[2019-07-17 13:46] LABS: Uric Acid 5.9 mg/dL (2.6-6.0)
--- NOTE | 2019-07-17 15:06 | PN ---
Date of Progress Note: 07/17/2019 Patient seen and examined. Chart reviewed and case discussed with RN and Dr. Moore. Patient seems to be doing well. No acute events overnight. Medications: List reviewed. Code Status: Full. Physical Examination: Vital Signs: Temperature 97.8, heart rate 76, blood pressure 144/99, respirations 20, O2 96% on 1 L via nasal cannula. General: Awake, alert, oriented x3. Elderly female, obese. BMI 36. Not in any acute distress. CV: S1, S2. Peripheral pulses present. Respiratory: Moving air well bilaterally. No wheezing or stridor. No use of accessory muscles. Gastrointestinal: Abdomen is soft, nontender, nondistended. Positive bowel sounds. Extremities: No clubbing, cyanosis, or edema. No calf tenderness. Neuro: Cranial nerves 2 through 12 intact grossly. No focal neurological deficits. Speech is annemarie l. Laboratory Data: Sodium 146, potassium 4.5, chloride 119, CO2 of 25, BUN 38, creatinine 1.43, glucos e 168, calcium 8.4, phosphorus 4.4, magnesium 2.2, troponin 0.66 and 0.52. Albumin 2.7. Cholesterol 151, triglycerides 209, LDL 57, HDL 52. TSH is 0.8. WBC 8, H and H 10 and 30.3, platelets 188. Assessment: 74-year-old female with: 1.Chest pain with elevated troponin. Patient seen with Cardiology on board. Feels that this is lik stan nonischemic cardiomyopathy and recommends medical treatment. Echocardiogram is pending at this t steffi. 2.Wide complex tachycardia, possibly rapid atrial fibrillation. Patient had cardioversion done in [facility] emergency room x3 and has an automated implantable cardioverter defibrillator in place, which will be interrogated. We will defer to Cardiology. We will resume the patient's home medications. 3.Essential hypertension, stable. 4.Acute on chronic systolic congestive heart failure. We will continue with diuretics. Monitor I's and O's, free fluid restriction. 5.Diabetes mellitus type 2 with hyperglycemia. We will monitor blood glucose levels. Continue slid ing scale insulin and Accu-Cheks. 6.Chronic kidney disease stage 3. Creatinine slightly improved. We will continue to monitor. Plan: AICD interrogation underway. We will follow up with Cardiology recommendations regarding poss ible angiogram. Patient currently asymptomatic. SA/MODL Voice ID: [id number] Report ID: [id number]
[2019-07-17 15:18] LABS: Urine Appearance CLEAR; Urine Bilirubin NEGATIVE (NEG); Urine Blood TRACE (NEG); Urine Color YELLOW; Urine Glucose TRACE (NEG); Urine Protein 2+ (NEG); Urine Urobilinogen 0.2 mg/dL (0.2-1.0); Urine pH 6.5 (5.0-7.0)
[2019-07-17 15:22] LABS: Urine Microscopic Reflex ORDER UMIC
[2019-07-17 15:48] LABS: Urine Bacteria <20 /HPF (<20); Urine Culture Reflex Order REFLEXED; Urine Mucus 1+ /HPF (NONE SEEN)
[2019-07-17] MEDS ORDERED: RIVAROXABAN 15 MG TABLET PO SCH (17:00)
--- NOTE | 2019-07-17 18:26 | RAD REPORT ---
EXAM DESCRIPTION: US - Renal Ultrasound-Complete - 07/17/2019 6:10 pm CLINICAL HISTORY: claus COMPARISON: Abdomen Pelvis Wo Contrast dated 08/07/2017 FINDINGS: The right kidney measures 9.1 x 4.8 x 5.5 cm. The left kidney measures 10.4 x 4.9 x 4.2 c m. Bilateral cortical thinning is present. Increased cortical echogenicity also noted. No hydronephro sis or suspicious renal mass. Bilateral renal cysts are present similar to the 2018 study. Urinary bladder is almost fully contracted limiting assessment. No gross abnormality seen. IMPRESSION: Bilateral medical renal disease with no hydronephrosis or suspicious mass.
[2019-07-17] MEDS: ATORVASTATIN 40 MG TAB PO SCH (20:06)
[2019-07-17] MEDS: AMOX/K CLAV 875 MG TAB PO SCH (20:07)
[2019-07-17] MEDS: FUROSEMIDE 40 MG TABLET PO SCH (20:28)
[2019-07-17] MEDS: SACUBITRIL/VALSARTAN 24/26 MG TAB PO SCH (20:28)
--- NOTE | 2019-07-17 23:36 | CON ---
Date of Consultation: 07/17/2019 Reason For Consultation: Elevated BUN and creatinine. History Of Present Illness: This is a pleasant 74-year-old female with significant past medical history of congestive heart failure with ejection fraction of 20%, status post ICD, status post ablation, hypertension, atrial fibrillation, seizure, colon artery disease complicated with congestive heart failure, atrial fibrillation, diabetes complicated with neuropathy. Patient was in her regular state of health. Patient was brought to the hospital with wide- complex ventricular tachycardia as patient was feeling weak and shortness of breath. Patient had her ICD interrogated. Patient upon arrival to the hospital, her creatinine was 1.6, GFR of 31. Reviewing the record for the patient, patient's baseline creatinine back in July 2017 was 1.9, GFR of 26. Patient was started on diuresis and Entresto. We have been consulted because of elevation in BUN and creatinine. Patient denied taking any nonsteroidal. No IV contrast. As I mentioned, patient had ventricular wide-complex tachycardia. Past Medical History: 1. Coronary artery disease complicated with congestive heart failure, ejection fraction of 20%, status post ICD and ablation. 2. Hypertension. 3. Diabetes complicated with neuropathy. 4. Chronic kidney disease, baseline creatinine back in 2018 was 1.9, GFR of 26. Allergies: NO KNOWN DRUG ALLERGIES. Home Medications: Include Entresto, Xarelto, Dilantin, metoprolol, insulin, digoxin, atorvastatin. Current Medications In The Hospital: Include Xarelto, Dilantin, metoprolol, Lasix, digoxin, Tylenol. Past Surgical History: ICD placement, appendectomy, exploratory laparotomy. Family History: Positive for lung disease, coronary artery disease, and diabetes. Social History: Denies smoking. Denies drinking. Denies drug abuse. Review of Systems: Head and Neck: No red eye. No ear pain GI: No nausea. No vomiting. : No polyuria. No dysuria. No hematuria. Recreational Resort Manager: No vaginal discharge. Respiratory: Has shortness of breath. Cardiovascular: Has palpitation. Endocrine: No polydipsia. Skin: No rash. Neuro: Has neuropathy. Musculoskeletal: No joint pain. Physical Examination: Vital Signs: When I saw the patient, blood pressure 150/56, pulse of 84, afebrile. Chest: Crackles bilateral base. Heart: S1, S2. Regular. Abdomen: Soft, nontender. Extremities: Trace edema. Neuro: Alert. No focality. Laboratory Data: Sodium 146, potassium 4.5, bicarb 25, BUN 38, creatinine 1.3, GFR of 36, calcium 8.4, magnesium 2.2. PTH 162. WBC 8, H and H 10/30.3, platelets 188. Urinalysis; specific gravity of 1.010, wbc of 10, P-C ratio 2.1. Assessment And Plan: 1. Chronic kidney disease secondary to cardiorenal, small size kidney 9.1 x 10.4 with bilateral renal cysts, possible polycystic kidney disease, looked to me over volume. Patient still at baseline. I am going to go ahead and increase her Lasix to b.i.d. and we will monitor the patient. 2. Urinary tract infection. Start the patient on antibiotic . We will follow up the culture. 3. Congestive heart failure over volume . Increase Lasix. Continue Entresto. We will send for TSH. 4. Cardiac arrhythmia as by Cardiology. 5. Secondary SHPT . I do not see the need for any vitamin D for the time being. 6. Diabetes, as by primary. MARCELLA/CAMERON Voice ID: [id number] Report ID: [id number] MELISSA
[2019-07-18] MEDS: ONDANSETRON 4 MG/2 ML VIAL IV PRN (00:52)
[2019-07-18 04:48] LABS: Absolute Lymphocytes (CBC) 2.2 K/uL (0.7-4.9); Basophils % 0.7 % (0-1.3); Hematocrit 31.8 % (36.0-45.0); MPV 11.3 fL (7.6-11.3); RBC Red Blood Cell Count 3.34 M/uL (3.86-4.86)
[2019-07-18 05:07] LABS: Albumin 2.8 g/dL (3.4-5.0); Bilirubin Total 0.1 mg/dL (0.2-1.0); Magnesium 2.1 mg/dL (1.8-2.4); Phosphorus 3.9 mg/dL (2.5-4.9); Potassium 4.4 mmol/L (3.5-5.1); Protein, Total 6.8 g/dL (6.4-8.2)
[2019-07-18 06:53] VITALS: BMI 34.6
[2019-07-18 06:58] VITALS: TEMP 97.4
[2019-07-18 07:13] VITALS: BP 139/51
[2019-07-18] MEDS: INSULIN -REGULAR HUMAN 50 UNIT/0.5 ML ML SQ SCH (07:30)
[2019-07-18 08:15] VITALS: O2SAT 99
[2019-07-18] MEDS: NPH (HUMAN) 100 UNITS/ML INSULIN SQ SCH (08:55)
[2019-07-18] MEDS: DIGOXIN 0.125 MG TABLET PO SCH (08:56)
[2019-07-18] MEDS: FUROSEMIDE 40 MG TABLET PO SCH (08:56)
[2019-07-18] MEDS: METOPROLOL XL 25 MG TAB PO SCH (08:57)
[2019-07-18] MEDS: PHENYTOIN ER 100 MG CAP PO SCH (08:57)
[2019-07-18] MEDS: AMOX/K CLAV 875 MG TAB PO SCH (08:57)
[2019-07-18] MEDS: SACUBITRIL/VALSARTAN 24/26 MG TAB PO SCH (08:57)
--- NOTE | 2019-07-18 11:19 | DS ---
Date of Discharge: 07/18/2019 Consultants: Dr. Colvin with Nephrology, Dr. Moore with Cardiology. Admitting Diagnoses: 1.Acute ventricular arrhythmia. 2.Acute on chronic systolic congestive heart failure. 3.Chronic kidney disease. 4.Diabetes mellitus type 2 with hyperglycemia. 5.Dyspnea upon exertion. 6.Essential hypertension. 7.Palpitations with history of atrial fibrillation paroxysmal. Discharge Diagnoses: 1.Chest pain with elevated troponin, likely due to nonischemic cardiomyopathy. No further intervent ion. 2.Wide-complex tachycardia, ventricular tachycardia after interrogation from defibrillator, on beta- blockers. 3.Essential hypertension. 4.Acute on chronic systolic congestive heart failure. The patient has history of very low EF. Sadie ent has AICD in place. 5.Diabetes mellitus type 2 with hyperglycemia, insulin requiring. 6.Chronic kidney disease stage 3, stable. 7.Obesity, BMI 34. 8.History of atrial fibrillation paroxysmal. 9.History of seizure disorder, on Dilantin. 10.Mixed hyperlipidemia. 11.Coronary artery disease, [place] artery and [place] heart with angina. Hospital Course: Patient is a 74-year-old female with multiple comorbid conditions including hyperte nsion, atrial fibrillation, systolic congestive heart failure, EF of 20%, status post AICD pacemaker, coronary artery disease, seizure disorder, atrial fibrillation, hypertension, diabetes, comes in wit h palpitations. She was found to have wide-complex tachycardia. She was hypotensive with shock x3, was given some sedation. Patient was then admitted to the ICU for further evaluation. She was then evaluated by Cardiology, Dr. Moore. Echocardiogram was done. Results are pending at this time. Jocelin shipley has known history of low EF and has AICD. Patient also seen by Nephrology for her chronic kidney d isease. She had mild elevation in her troponin which was thought to be due to the shock as well as n onischemic cardiomyopathy. Cardiology did not recommend any further intervention. Patient chest justin n resolved. She did not have any further arrhythmias. She was continued on her home medications. S he does take Xarelto for her atrial fibrillation, beta-cindy. She takes 25 mg twice a day. She holbrook s a heart rate in the 60s, not able to tolerate a higher dose. Overall, patient did well. Her defib rillator was interrogated and she did have arrhythmia with ventricular tachycardia causing her sympto ms. Patient was then cleared for discharge as she was stable and did not have any further arrhythmia s. She was sent home in a stable condition. Activity: As tolerated. Medications: As per medication reconciliation list. Followup: Follow up with primary care physician in 2-3 days. Follow up with chain maker machine, Dr. Melanie trujillo in 2 weeks. Follow up with cable wirer, Dr. Colvin in 2 weeks. Diet: Diabetic, low-sodium. 1500 mL fluid restriction. Physical Examination: General: Awake, alert, oriented x3, obese female elderly, no acute distress. CV: S1-S2. No murmurs. Respiratory: Moving air well bilaterally. No wheezing or stridor. Gastroi ntestinal: Abdomen is soft, nontender, nondistended. Positive bowel sounds. Extremities: No clubbing, cyanosis, or edema. Neurologic: Nonfocal. Total time spent discharging patient was 39 minutes. /CAMERON Voice ID: [id number] Report ID: [id number]
--- NOTE | 2019-07-18 13:40 | ECHO ---
HEIGHT: 5 ft 0 in WEIGHT: 177 lb 4.8 oz DATE OF STUDY: 07/17/[address]: Je Alexis DO 2-DIMENSIONAL: YES M.MODE: YES DOPPLER: YES COLOR FLOW: YES TDS: NO PORTABLE: YES DEFINITY: N BUBBLE STUDY: NO DIAGNOSIS: VENTRICULAR TACHYCARDIA CARDIAC HISTORY: CATHERIZATION: NO SURGERY: NO PROSTHETIC VALVE: NO PACEMAKER: YES MEASUREMENTS (cm) DIASTOLIC (NORMALS) SYSTOLIC (NORMALS) IVSd 1.0 (0.6-1.2) LA Diam 3.5 (1.9-4.0) LVEF 30-35% LVIDd 5.3 (3.5-5.7) LVIDs 4.0 (2.0-3.5) %FS 23% LVPWd 1.1 (0.6-1.2) Ao Diam 3.0 (2.0-3.7) 2 DIMENSIONAL ASSESSMENT: RIGHT ATRIUM: NORMAL LEFT ATRIUM: MILD ENLARGED RIGHT VENTRICLE: NORMAL LEFT VENTRICLE: LOW EJECTION FRACTION TRICUSPID VALVE: NORMAL MITRAL VALVE: NORMAL PULMONIC VALVE: NORMAL AORTIC VALVE: NORMAL PERICARDIAL EFFUSION: NONE AORTIC ROOT: NORMAL LEFT VENTRICULAR WALL MOTION: AKINESIS OF ANTERIOR/ MID TO DISTAL ANTEROSEPTAL LICEA. DOPPLER/COLOR FLOW: NORMAL. COMMENTS: MODERATE LEFT VENTRICULAR DYSFUNCTION, 30-35% EJECTION FRACTION WITH WALL MOTION ABNORMALITY, SEE ABOVE. DIASTOLIC DYSFUNCTION. MID DIASTOLIC DYSFUNCTION. TECHNOLOGIST: CELESTE US
--- NOTE | 2019-07-19 13:05 | EKG ---
Test Date: 2019-07-16 Test Time: 13:30:59 Umbrella Cutter: HB MEASUREMENT RESULTS: Intervals: Rate: 89 AL: 158 QRSD: 150 QT: 440 QTc: 535 [place]: P: 48 AL: 158 QRS: -83 T: 85 INTERPRETIVE STATEMENTS: V paced rhythm with occasional premature ventricular complexes Electronically Signed On 07-19-19 13:05:16 CDT by Ross Graf
--- NOTE | 2019-07-21 14:19 | ER ---
Nurse's Notes [facility] Name: Teena Simpson Age: 74 yrs Sex: Female : 1945 Arrival Date: 07/16/2019 Time: 11:55 Bed 17 Private MD: Diagnosis: Tachycardia, unspecified;Hypotension Presentation: 07/15 12:04 Chief complaint: Patient states: HR 160's low BP since 0300 this om. Feels weak and ll1 tired. Neck pain. Coronavirus screen: Proceed with normal triage. Patient denies a cough. Patient denies shortness of breath or difficulty breathing. Patient denies measured and/or subjective temperature greater than 100.4F prior to today's visit. Patient denies travel on a cruise ship or to a country the [facility] currently lists as an affected area. Patient denies contact with known and/or suspected case of COVID-19. Ebola Screen: Patient denies travel to an Ebola-affected area in the 21 days before illness onset. Initial Sepsis Screen: Does the patient meet any 2 criteria? Mean Arterial Pressure (MAP) < 65. HR > 90 bpm. Yes Does the patient have a suspected source of infection? No. Patient's initial sepsis screen is negative. Risk Assessment: Do you want to hurt yourself or someone else? Patient reports no desire to harm self or others. Onset of symptoms was July 16, 2019. 12:04 Method Of Arrival: EMS ll1 12:04 Acuity: TYSON 2 ll1 Historical: - Allergies: 12:08 No Known Drug Allergies; ll1 - PMHx: 12:08 Myocardial infarction; Hypertension; High Cholesterol; neuropathy; Diabetes - IDDM; ll1 Anxiety; - PSHx: 12:08 Pacemaker/Defibrillator; Appendectomy; ll1 - Immunization history:: Adult Immunizations up to date. - Social history:: Patient/guardian denies using Smoking status: Patient denies any tobacco usage or history of. Screenin:00 Abuse screen: Denies threats or abuse. Denies injuries from another. Nutritional hb screening: No deficits noted. Tuberculosis screening: No symptoms or risk factors identified. Fall Risk Total Lynch Fall Scale indicates Low Risk Score (25-44 pts). Fall prevention measures have been instituted. Side Rails Up X 2 Frequent Obs/Assesments occuring As available Patient and Family Educated on Fall Prevention Program and strategies. Assessment: 12:00 General: Appears uncomfortable, Behavior is calm, cooperative, appropriate for age. ll1 Pain: Complains of pain in neck Pain currently is 5 out of 10 on a pain scale. Neuro: No deficits noted. Cardiovascular: Reports chest pain, fatigue, nausea, Heart tones S1 S2 Capillary refill < 3 seconds Clubbing of nail beds is absent JVD is absent Patient's skin is warm and dry. Pulses are all present. Rhythm is wide complex tachycardia rate 160. Respiratory: Airway is patent Trachea midline Respiratory effort is even, unlabored, Respiratory pattern is regular, symmetrical, Breath sounds are clear bilaterally. Denies cough, shortness of breath. GI: Abdomen is flat, Bowel sounds present X 4 quads. Reports nausea. 13:00 Reassessment: No changes from previously documented assessment. Patient and/or family ll1 updated on plan of care and expected duration. Pain level reassessed. Patient is alert, oriented x 3, equal unlabored respirations, skin warm/dry/pink. 14:00 Reassessment: Patient appears in no apparent distress at this time. Patient and/or vc family updated on plan of care and expected duration. Pain level reassessed. 15:15 Reassessment: Patient appears in no apparent distress at this time. Patient and/or vc family updated on plan of care and expected duration. Pain level reassessed. Patient is alert, oriented x 3, equal unlabored respirations, skin warm/dry/pink. Patient sitting up in bed eating her lunch. Patient states symptoms have improved. 16:00 Reassessment: Patient appears in no apparent distress at this time. Patient and/or vc family updated on plan of care and expected duration. Pain level reassessed. Patient is alert, oriented x 3, equal unlabored respirations, skin warm/dry/pink. 17:00 Reassessment: Patient appears in no apparent distress at this time. Patient and/or vc family updated on plan of care and expected duration. Pain level reassessed. Patient is alert, oriented x 3, equal unlabored respirations, skin warm/dry/pink. Patient denies pain at this time. Patient states feeling better. Patient states symptoms have improved. 18:00 Reassessment: Patient appears in no apparent distress at this time. Patient and/or vc family updated on plan of care and expected duration. Pain level reassessed. Patient is alert, oriented x 3, equal unlabored respirations, skin warm/dry/pink. Patient states feeling better. Patient states symptoms have improved. Vital Signs: 12:04 BP 86 / 46; Pulse 160; Resp 18; Temp 98.0; Pulse Ox 100% ; Pain 5/10; ll1 13:10 BP 114 / 76; Pulse 156; Resp 17; Pulse Ox 100% ; ll1 13:17 BP 99 / 76; Pulse 85; Resp 16; Pulse Ox 100% ; Pain 0/10; ll1 14:00 BP 107 / 57; Pulse 85; Resp 16; Pulse Ox 97% ; ll1 15:07 BP 137 / 65; Pulse 85; Resp 16; Pulse Ox 100% on 2 lpm NC; mh5 16:24 BP 147 / 69; Pulse 76; Resp 16; Temp 98.3(TE); Pulse Ox 100% on 2 lpm NC; mh5 17:00 BP 121 / 61; Pulse 80; Resp 16; Pulse Ox 100% on 2 lpm NC; vc 17:45 BP 139 / 61; Pulse 81; Resp 15; Pulse Ox 100% on 2 lpm NC; vc ED Course: 11:55 Patient arrived in ED. em1 12:00 Patient has correct armband on for positive identification. Placed in gown. Bed in low ll1 position. Call light in reach. Side rails up X2. monitoring and evaluation advisor on. Pulse ox on. NIBP on. 12:06 Triage completed. 1 12:19 Sigrid High RN is Primary Nurse. 1 12:44 Ritchie Gomez PA is PHCP. [facility] 12:44 Gianfranco Myers MD is Attending Physician. [facility] 13:00 Inserted saline lock: 24 gauge in left wrist, using aseptic technique. Blood collected. ll1 13:10 Inserted saline lock: 24 gauge in right wrist, using aseptic technique. ll1 13:18 Assist provider with cardioversion (synchronized) with pads, for treatment of wide hb complex tachy [id number] with 150 joules X 3. Set up for procedure. Performed by Gianfranco Myers MD Monitored with diagnostic cardiac sonographer, pulse ox, Patient tolerated well. 13:55 Report received from Sigrid High RN. vc 14:06 Eleazar Alexis MD is Hospitalizing Provider. [facility] 15:07 Diet: Patient given a heart healthy meal tray. [facility] 18:11 Patient admitted, IV remains in place. vc Administered Medications: 13:05 Drug: Phenergan 12.5 mg Route: IVP; Site: left wrist; ll1 15:20 Follow up: Response: No adverse reaction vc 13:16 Drug: Versed 2 mg Route: IVP; Site: right wrist; ll1 14:15 Follow up: Response: RASS: Deep sedation (-4) 1 13:21 Drug: fentaNYL (PF) 50 mcg Route: IVP; Site: right wrist; ll1 14:15 Follow up: Response: No adverse reaction; Pain is decreased; RASS: Drowsy (-1) 1 15:01 Drug: NS 0.9% 500 ml Route: IV; Rate: bolus; Site: left wrist; vc Outcome: 14:07 Decision to Hospitalize by Provider. [facility] 17:11 Condition: improved vc 18:11 Patient left the ED. [facility] 18:11 Admitted to ICU accompanied by nurse, via stretcher, room 6, with oxygen, on monitor, vc with chart, Report called to WM Pérez 18:11 Condition: improved vc 18:11 Instructed on the need for admit. Signatures: Ritchie Gomez PA PA jmm Martinez, Eric 1 Jennifer Conteh RN RN Gabbie Felton [facility] Lizbet Max RN RN vc Lewis, Lynsay, RN RN ll1 Corrections: (The following items were deleted from the chart) 13:34 11:55 Inserted saline lock: 24 gauge in left wrist, using aseptic technique. Blood ll1 collected. ll1 14:37 13:23 BP 114 / 76; Pulse 156bpm; Resp 17bpm; Pulse Ox 100%; ll1 ll1 14:43 13:22 BP 99 / 76; Pulse 85bpm; Resp 16bpm; Pulse Ox 100%; Pain 0/10; ll1 ll1 18:50 17:11 Admitted to ICU accompanied by nurse, via stretcher, room 6, with oxygen, on vc monitor, with chart, Report called to WM Pérez vc
--- NOTE | 2019-07-21 14:19 | EDPHYS ---
Physician Documentation [facility] Name: Teena Simpson Age: 74 yrs Sex: Female : 1945 Arrival Date: 07/16/2019 Time: 11:55 Bed 17 Private MD: ED Physician Gianfranco Myers HPI: 07/15 12:50 This 74 yrs old Female presents to ER via EMS with complaints of weakness. jmm 12:50 Onset: this morning. The pain radiates to This is a 74 year old female with a history jmm of SD, HTN, HLP that presents to the ED with complaints of weakness, fatigue, neck pain beginning this morning. EMS transferred patient to ED. . Historical: - Allergies: 12:08 No Known Drug Allergies; ll1 - PMHx: 12:08 Myocardial infarction; Hypertension; High Cholesterol; neuropathy; Diabetes - IDDM; ll1 Anxiety; - PSHx: 12:08 Pacemaker/Defibrillator; Appendectomy; ll1 - Immunization history:: Adult Immunizations up to date. - Social history:: Patient/guardian denies using Smoking status: Patient denies any tobacco usage or history of. ROS: 12:50 Constitutional: Positive for fatigue. jmm 12:50 Cardiovascular: Positive for palpitations. 12:50 Respiratory: Positive for shortness of breath. 12:50 Neuro: Positive for weakness. 12:50 All other systems are negative. Exam: 12:50 Head/Face: atraumatic. Eyes: EOMI, no conjunctival erythema appreciated ENT: Moist jmm Mucus Membranes Neck: Trachea midline, Supple Chest/axilla: Normal chest wall appearance and motion. 12:50 Respiratory: Normal respirations, no respiratory distress appreciated Abdomen/GI: Non distended, soft Back: Normal ROM Skin: General appearance color normal MS/ Extremity: Moves all extremities, no obvious deformities appreciated, no edema noted to the lower extremities Neuro: Awake and alert, normal gait Psych: Behavior is normal, Mood is normal, Patient is cooperative and pleasant 12:50 Constitutional: The patient appears in no acute distress, alert, awake. 12:50 Cardiovascular: Rate: tachycardic, Rhythm: regular. Vital Signs: 12:04 BP 86 / 46; Pulse 160; Resp 18; Temp 98.0; Pulse Ox 100% ; Pain 5/10; ll1 13:10 BP 114 / 76; Pulse 156; Resp 17; Pulse Ox 100% ; ll1 13:17 BP 99 / 76; Pulse 85; Resp 16; Pulse Ox 100% ; Pain 0/10; ll1 14:00 BP 107 / 57; Pulse 85; Resp 16; Pulse Ox 97% ; ll1 15:07 BP 137 / 65; Pulse 85; Resp 16; Pulse Ox 100% on 2 lpm NC; mh5 16:24 BP 147 / 69; Pulse 76; Resp 16; Temp 98.3(TE); Pulse Ox 100% on 2 lpm NC; mh5 17:00 BP 121 / 61; Pulse 80; Resp 16; Pulse Ox 100% on 2 lpm NC; vc 17:45 BP 139 / 61; Pulse 81; Resp 15; Pulse Ox 100% on 2 lpm NC; vc MDM: 12:[address] [facility] 14:03 Data reviewed: vital signs, nurses notes. ED course: I discussed the patient with Dr. maria Alexis whom accepted admission. . 07/15 12:10 Order name: Basic Metabolic Panel [facility] 07/15 12:10 Order name: CBC with Diff [facility] 07/15 12:10 Order name: LFT's [facility] 07/15 12:10 Order name: Magnesium [facility] 07/15 12:10 Order name: NT PRO-BNP [facility] 07/15 12:10 Order name: PT-INR [facility] 07/15 12:10 Order name: Troponin (emerg Dept Use Only) [facility] 07/15 13:13 Order name: CBC with Automated Diff; Complete Time: 14:07 [facility] 07/15 13:35 Order name: Basic Metabolic Panel; Complete Time: 14:07 [facility] 07/15 13:35 Order name: Liver (Hepatic) Function; Complete Time: 14:07 [facility] 07/15 13:35 Order name: Troponin (Emerg Dept Use Only); Complete Time: 14:07 [facility] 07/15 13:35 Order name: NT PRO-BNP; Complete Time: 14:07 [facility] 07/15 13:35 Order name: Magnesium; Complete Time: 14:07 [facility] 07/15 14:29 Order name: Protime (+INR); Complete Time: 14:48 [facility] 07/15 12:10 Order name: XRAY Chest (1 view) [facility] 07/15 12:10 Order name: EKG; Complete Time: 12:12 [facility] 07/15 12:10 Order name: Cardiac monitoring; Complete Time: 13:59 [facility] 07/15 12:10 Order name: EKG - Nurse/Tech; Complete Time: 14:01 [facility] 07/15 12:10 Order name: IV Saline Lock; Complete Time: 13:59 [facility] 07/15 12:10 Order name: Labs collected and sent; Complete Time: 13:59 [facility] 07/15 12:10 Order name: O2 Per Protocol; Complete Time: 14:00 [facility] 07/15 12:10 Order name: O2 Sat Monitoring; Complete Time: 14:00 [facility] 07/15 16:45 Order name: RAD; Complete Time: 17:40 [facility] 07/15 16:57 Order name: Urine Dipstick--Ancillary (enter results) em1 Administered Medications: 13:05 Drug: Phenergan 12.5 mg Route: IVP; Site: left wrist; ll1 15:20 Follow up: Response: No adverse reaction vc 13:16 Drug: Versed 2 mg Route: IVP; Site: right wrist; ll1 14:15 Follow up: Response: RASS: Deep sedation (-4) ll1 13:21 Drug: fentaNYL (PF) 50 mcg Route: IVP; Site: right wrist; ll1 14:15 Follow up: Response: No adverse reaction; Pain is decreased; RASS: Drowsy (-1) ll1 15:01 Drug: NS 0.9% 500 ml Route: IV; Rate: bolus; Site: left wrist; vc Disposition: 07/16 09:51 Co-signature as Attending Physician, Gianfranco Myers MD I agree with the assessment and kdr plan of care. Disposition: 07/16/19 14:07 Hospitalization ordered by Eleazar Alexis for Inpatient Admission. Preliminary diagnosis are Tachycardia, unspecified, Hypotension. - Bed requested for Intensive Care Unit. - Status is Inpatient Admission. ll1 - Condition is Stable. - Problem is an acute exacerbation. - Symptoms have improved. Signatures: Dispatcher [employer] EDMS Viri High RN RN kl Rittger, Kevin, MD MD [facility] Ritchie Gomez PA PA [facility] Jennifer Conteh RN RN Lizbet Max RN RN Lennox, Lynsay, RN RN ll1 Corrections: (The following items were deleted from the chart) 07/15 16:40 14:07 Hospitalization Ordered by Eleazar Alexis MD for Inpatient Admission. Preliminary kl diagnosis is Tachycardia, unspecified; Hypotension. Bed requested for Telemetry/MedSurg (Inpatient). Status is Inpatient Admission. Condition is Stable. Problem is an acute exacerbation. Symptoms have improved. shimon 18:11 16:40 07/16/2019 14:07 Hospitalization Ordered by Eleazar Alexis MD for Inpatient ll1 Admission. Preliminary diagnosis is Tachycardia, unspecified; Hypotension. Bed requested for Intensive Care Unit. Status is Inpatient Admission. Condition is Stable. Problem is an acute exacerbation. Symptoms have improved. kl
== END 2019-07-18 09:52 | disposition home or self-care (01) | DRG 308 ==
LOC: ER 11:54 → ERHOLD 14:45 → 3RD-ICU 17:08
PROVIDERS: ADMIT Family Medicine; ATTEND Family Medicine
DX: I47.2 Ventricular tachycardia (principal); I50.23 Acute on chronic systolic (congestive) heart failure; R57.8 Other shock; I42.8 Other cardiomyopathies; I13.0 Hypertensive heart and chronic kidney disease with heart failure and stage 1 through stage 4 chronic kidney disease, or unspecified chronic kidney disease; N17.9 Acute kidney failure, unspecified; N25.81 Secondary hyperparathyroidism of renal origin; N39.0 Urinary tract infection, site not specified; I49.9 Cardiac arrhythmia, unspecified; Z79.4 Long term (current) use of insulin; Z79.899 Other long term (current) drug therapy; Z79.01 Long term (current) use of anticoagulants; E11.40 Type 2 diabetes mellitus with diabetic neuropathy, unspecified; Z90.49 Acquired absence of other specified parts of digestive tract; E66.9 Obesity, unspecified; E11.22 Type 2 diabetes mellitus with diabetic chronic kidney disease; R06.09 Other forms of dyspnea; Z95.810 Presence of automatic (implantable) cardiac defibrillator; E11.65 Type 2 diabetes mellitus with hyperglycemia; N18.3 Chronic kidney disease, stage 3 (moderate); I25.2 Old myocardial infarction; E78.2 Mixed hyperlipidemia; I25.119 Atherosclerotic heart disease of native coronary artery with unspecified angina pectoris; Z68.34 Body mass index [BMI] 34.0-34.9, adult; I95.9 Hypotension, unspecified
CPT/HCPCS: 36415; 71045; 76770; 80048; 80053; 80061; 80069; 80076; 81003; 81015; 82550; 82553; 82570; 82947; 83615; 83735; 83880; 83970; 84100; 84156; 84439; 84443; 84484; 84550; 85025; 85610; 87077; 87086; 87088; 87186; 88108; 92960; 93005; 93280; 93306; 94760; 99291; J1650; J1815; J2250; J2405; J2550; J3010; J7030; J7040

== ENCOUNTER 2019-07-18 22:59 | Inpatient (IN) | payer MEDICARE ==
--- OUTSIDE RECORDS SUMMARY | 2019-07-18 23:02 | XMS REPORT ---
:1945 Author Organization [facility] t Address [address] [place] [address] Care Team Providers Name Role Phone Lauryn Moscoso MD Attending Clinician Kumar SQUIRES Attending Clinician [place], Lab Main Attending Clinician Unavailable Tin SQUIRES Attending Clinician Problems This patient has no known problems. Allergies, Adverse Reactions, Alerts This patient has no known allergies or adverse reactions. Medications This patient has no known medications. Procedures This patient has no known procedures. Encounters Start End Encounter Admission Attending Care Care Encounter Source Date/Time Date/Time Type Type Clinicians Facility Department ID 2019-07-16 2019-07-16 Telephone Blanka [facility] [id number] 00:00:00 00:00:00 Wondiful A [facility] [id number] [place] [id number] Professio [phone] [facility] 044 Office Building One 2019-07-01 2019-07-01 Telephone Kumar [facility] [id number] 00:00:00 00:00:00 Sriram [place] [id number] [place] [id number] Professio [phone] [place] 059 Building 2019-06-30 2019-06-30 Public Policy Associate Luís Coleman [facility] [id number] 07:52:57 08:07:57 Visit Lab Main Jason [id number] [place] [id number] Professio [phone] [facility] 353 [facility] 2019-06-25 2019-06-25 [facility]ici [facility] [id number] 08:37:50 08:57:50 ne Visit Sriram Gomez [id number] [place] [id number] Professio [phone] [facility] 2019-05-28 2019-05-28 Refill Blanka [facility] [id number] 00:00:00 00:00:00 Wondiful A [facility] [id number] [place] [id number] Professio [phone] [place] [address] Office [facility] 2019-05-25 2019-05-25 [facility] [id number] 00:00:00 00:00:00 Wondiful A Health [id number] [place] [id number] Professio [phone] [place] [address] Office [facility] 2019-05-20 2019-05-20 [facility] [id number] 13:50:59 14:10:59 ne Visit Sriram Gomez [id number] [place] [id number] Professio [phone] [address] 2019-05-20 2019-05-20 Telephone Blanka [facility] [id number] 00:00:00 00:00:00 Wondiful A Health [id number] [place] [id number] Professio [phone] [place] [address] Office [facility] 2019-05-13 2019-05-13 Telephone [facility] [id number] 00:00:00 00:00:00 Sriram Gomez [id number] [place] [id number] Professio [phone] [address] 2019-05-09 2019-05-09 Refill Blanka [facility] [id number] 00:00:00 00:00:00 Wondiful A Health [id number] [place] [id number] Professio [phone] [facility] 044 Office [address] One 2019-05-02 2019-05-02 Telephone Tin [facility] [id number] 00:00:00 00:00:00 [place] [id number] [place] [id number] Professio [phone] [facility] 220 [facility] 2019-05-02 2019-05-02 Telephone [facility] [id number] 00:00:00 00:00:00 Wondiful A Health [id number] [place] [id number] Professio [phone] [facility] 044 Office [facility] One 2019-04-30 2019-04-30 Public Policy Associate Luís Coleman [facility] 1.2.840.114 [id number] 09:32:20 09:47:20 Visit Lab Main [place] [id number] [place] [id number] Professio [phone] [address] 2019-04-30 2019-04-30 Telephone [facility] [id number] 00:00:00 00:00:00 Wondiful A Health [id number] [place] [id number] Professio [phone] [facility] 044 Office [facility] 2019-04-28 2019-04-28 Office [facility] [id number] 13:21:45 14:34:07 Visit Sriram [place] [id number] [place] [id number] Professio [phone] [address] Results This patient has no known results.
--- OUTSIDE RECORDS SUMMARY | 2019-07-18 23:18 | XMS REPORT | Summary of Care ---
:1945 [address] [facility] Address [address] [place] [id number] Care Team Providers Name Role Phone Ortega Dorsey MD Universal Branch Consultant [phone] Lauryn Moscoso MD Primary Care Provider Lauren Dickinson DO Applied Research Director Reason for Visit Reason Comments Assessment TRIAGE Encounter Details Date Type Department Care Team Description 07/16/2019 Telephone [facility] Family Kylah Moscoso A ssessment (TRIAGE) [address] [address] [place], [place] [phone] Allergies No Known Allergiesdocumented as of this encounter (statuses as of 07/17/2019) Medications Medication Sig Dispensed Refills Start Date [...] as of this encounter (statuses as of 07/17/2019) Active Problems Problem Noted Date Spontaneous ecchymoses [...] as of this encounter (statuses as of 07/17/2019) Immunizations Name Administration Dates Next Due HEP [...] Diabetes & Duncan Castle MD Metabolism [address] [place] [address] [phone] 08/15/2019 Nurse Visit Cardiology Visit, Adc Nurse 09/08/2019 Office Visit Cardiology Sriram Heath M D [address] [place] [address] 15 [phone] Health Maintenance Due Date Last Done Comments [...] of this encounter Implants Implanted Type Area Scaleman Device Shelf Model / Identifier Expiration Serial / Date Lot Defibrillator DEFIBRILLATOR Medtronic DT [id number] / [id number] / documented as of this encounter Results Not on filedocumented in this encounter Insurance Payer Benefit Plan / Subscriber ID Effective Phone Address T ype Group Dates [facility] [id number] 2019-Nuria javier Adv HEALTHCARE - MEDICARE [facility] MANAGED MEDICARE ADVANTAGE documented as of this encounter Advance Directives Name Relationship Healthcare Agent Communication Relationship Marcella Schmitz Child Primary healthcare agent nadia [email or web address]
[2019-07-18 23:30] LABS: Absolute Lymphocytes (CBC) 1.9 K/uL (0.7-4.9); Basophils % 0.3 % (0-1.3); Lymphocytes % 18.6 % (15.3-44.8); MPV 10.3 fL (7.6-11.3); RBC Red Blood Cell Count 3.39 M/uL (3.86-4.86)
[2019-07-18 23:50] LABS: ALT/SGPT 23 U/L (12-78); AST/SGOT 21 U/L (15-37); Albumin 2.9 g/dL (3.4-5.0); Alkaline Phosphatase 139 U/L (45-117); BUN Blood Urea Nitrogen 43 mg/dL (7-18); Bicarbonate 23 mmol/L (21-32); Bilirubin Direct < 0.1 mg/dL (0-0.2); Bilirubin Total 0.1 mg/dL (0.2-1.0); Glucose Level 286 mg/dL (74-106); Magnesium 1.8 mg/dL (1.8-2.4); NT PRO-BNP 2303 pg/mL (<125); Potassium 4.5 mmol/L (3.5-5.1); Protein, Total 7.2 g/dL (6.4-8.2); Sodium Level 141 mmol/L (136-145)
[2019-07-18 23:59] LABS: Protime INR 1.36
--- NOTE | 2019-07-19 01:17 | P.HP ---
Certification for Inpatient Patient admitted to: Observation With expected LOS: <2 Midnights Practitioner: I am a practitioner with admitting privileges, knowledge of patient current condition, hospital course, and medical plan of care. Services: Services provided to patient in accordance with Admission requirements found in Title 42 Section 412.3 of the Code of Federal Regulations Patient History Date of Service: 07/19/19 Reason for admission: Lightheadedness and chest pressure History of Present Illness: 74-year-old woman with multiple comorbidities including ischemic cardiomyopathy, EF of 20%, status post AICD, history of afib hospitalized for wide complex tachycardia 3 days ago and discharged only yesterday present to the ED again today with the feeling of lightheadedness and chest pressure. Patient stated her symptoms occurred while she was standing and cooking. Her troponin is mildly elevated to 0.1. EKG demonstrated paced rhythm. She is normotensive. Noted patient AICD was interrogated and it reported ventricular arrhythmias during her previous episode of palpitation prior to hospitalization. Patient is placed under observation for further monitoring. Allergies No Known Allergies Allergy (Verified 07/16/19 20:12) Home Medications: Atorvastatin Calcium 40 mg PO BEDTIME 08/27/15 PHENYTOIN ER Cap [Dilantin ER Cap*] 200 mg PO BEDTIME 08/27/15 Rivaroxaban [Xarelto*] 15 mg PO DAILY 08/27/15 Furosemide [Lasix*] 40 mg PO BID PRN 04/07/16 Digoxin [Lanoxin*] 0.125 mg PO DAILY 07/16/19 Insulin -Regular Human [Novolin -R*] See Protocol SQ ACHS 07/16/19 Insulin NPH Human Isophane [Novolin N] 25 unit SQ BID 07/16/19 Metoprolol Succinate 25 mg PO BID 07/16/19 Phenytoin Sodium Extended [Dilantin] 100 mg PO DAILY 07/16/19 Sacubitril/Valsartan [Entresto 24 mg-26 mg Tablet] 0.5 tab PO BID 07/16/19 Amox/Clavulanate [Augmentin 875-125 Tab*] 875 mg PO BID #10 tab 07/18/19 - Past Medical/Surgical History Diabetic: Yes -: seizures -: afib -: iddm -: hypertension -: hyperlipidemia -: chf -: bladder infection -: cad -: neuropathy -: w?EF 20-25% -: defibrilator -: PNA -: defib/pacemaker placement x2 -: exploratory lap -: appendectomy - Family History Father -: Lung disease Mother -: Heart disease, Hypertension, Diabetes Sister -: Diabetes Brother -: Diabetes, Kidney disease - Social History Alcohol use: No CD- Drugs: No Caffeine use: Yes Review of Systems Other: Except as documented, all other systems reviewed and negative. Physical Examination - Physical Exam General: Alert, In no apparent distress, Oriented x3 HEENT: Mucous membr. moist/pink Neck: Supple, JVD not distended Respiratory: Clear to auscultation bilaterally, Normal air movement Cardiovascular: Regular rate/rhythm, Normal S1 S2, Edema (1+ bilateral lower extremity pitting edema) Capillary refill: <2 Seconds Gastrointestinal: Normal bowel sounds, Soft and benign, Non-distended Musculoskeletal: No erythema Integumentary: No rashes Neurological: Normal strength at 5/5 x4 extr - Studies Laboratory Data (last 24 hrs) 07/18/19 23:21: PT 15.9 H, INR 1.36 07/18/19 23:21: WBC 10.0 D, Hgb 10.9 L, Hct 32.0 L, Plt Count 210 D 07/18/19 23:21: Sodium 141, Potassium 4.5, BUN 43 H, Creatinine 1.76 H, Glucose 286 H, Magnesium 1.8, Total Bilirubin 0.1 L, AST 21, ALT 23, Alkaline Phosphatase 139 H Assessment and Plan - Problems (Diagnosis) (1) Chest pain Onset Date: 08/18/14 Current Visit: No Status: Acute (2) Chronic systolic heart failure Current Visit: Yes Status: Acute (3) Morbid (severe) obesity due to excess calories Current Visit: No Status: Acute (4) CKD (chronic kidney disease) Current Visit: No Status: Chronic (5) Diabetes Current Visit: No Status: Chronic Qualifiers: Diabetes mellitus type: type 2 Diabetes mellitus complication status: without complication - Plan Place under observation. Trend troponin. Elevated troponin likely secondary to demand ischemia. Telemetry Cardiology consult-may need medication adjustment. Continue home medications. - Advance Directives Does patient have a Living Will: No Does patient have a Durable POA for Healthcare: No
[2019-07-19 03:02] VITALS: BMI 36.0
[2019-07-19] MEDS: INSULIN -REGULAR HUMAN 50 UNIT/0.5 ML ML SQ SCH ×4 (08:15→21:41)
[2019-07-19] MEDS: ASPIRIN EC 81 MG TAB PO SCH (08:16)
--- NOTE | 2019-07-19 12:07 | RAD REPORT ---
EXAM DESCRIPTION: RAD - Chest Single View - 07/18/2019 11:33 pm CLINICAL HISTORY: irregular pulse Chest pain. COMPARISON: Chest Single View dated 07/16/2019; Chest Single View dated 04/08/2016; Chest Single View dated 04/07/2016; Chest Single View dated 04/05/2016 FINDINGS: Portable technique limits examination quality. Mild interstitial pulmonary edema suspected. The heart is mildly enlarged in size with a multilead pa cer/defibrillator device present. Portion of the left mid lung parenchyma is obscured by the pacer pa ck. IMPRESSION: Mild CHF.
--- NOTE | 2019-07-19 18:05 | CON ---
Date of Consultation: 07/19/2019 Chief Complaint: Chest pressure. History Of Present Illness: This is a 74-year-old female with known nonischemic cardiomyopathy with low ejection fraction in the low 30s, has an ICD in place, who was recently admitted to the hospital for tachycardia and had a chest pressure and borderline elevation in troponin. At that time, her rec ords were reviewed and she apparently had a coronary angiogram in the past 2 years that did not show any significant coronary artery disease. The interrogation of her device at that time showed an SVT, so recommended that she goes home with adjustment of beta-cindy. However, she came back with ches t pressure that radiates to her neck with some borderline elevation in troponin. Past Medical History: She has hypertension, atrial fibrillation, CHF, diabetes, hypertension. Medications: Refer to reconciliation sheet for detailed list. Allergies: NO KNOWN DRUG ALLERGIES. Social History: Does not smoke or drink. Does not use any drugs. Family History: No premature coronary artery disease or cancer. Past Surgical History: Defibrillator placement and appendectomy. Review of Systems: All systems reviewed and they were negative except what is mentioned in the HPI. Physical Examination: Vital Signs: Temperature is 98.4, pulse 74, breathing at 16, blood pressure is 144/57, saturating 99 % on room air. General: Pleasant elderly female, in no apparent distress. Head and Neck: Pupils are equal and reactive to light. Intact eye movements. No JVD. No cervical lymphadenopathy. Neck supple. Thyroid is not enlarged. Lungs: Clear to auscultation bilaterally. No rhonchi, rales, or crackles. No accessory muscle use. Heart: Regular rate and rhythm. No extra sounds. Abdomen: Soft, nontender. Bowel sounds positive. No organomegaly. No masses or hernia. No rigidi ty or rebound. Extremities: No edema, clubbing, or cyanosis. Intact pulses. Skin: No rash. Neurologic: Alert, awake, oriented x3. No acute focal deficits appreciated. Investigations: Troponin peaked at 0.13. Creatinine is 1.76. Rest of the labs reviewed. Assessment And Recommendation: 1.Chest pain with another troponin leak. She had a coronary angiogram, supposed to be normal as per reports in 2016. However, since the patient is having repetitive symptoms, I will recommend further evaluation with a stress test to be done on Sunday morning. If the troponin kept rising, we may jann nge the plan for coronary angiogram. I will try to review her films to make sure that the coronary a ngiogram was supposed to be normal in 2016. At this point, we will plan for a nuclear stress test to be done on Sunday as an inpatient. 2.Congestive heart failure. Ejection fraction in 25% to 30%. Continue guideline directed medical t herapy for congestive heart failure. Thank you for this consultation. /CAMERON Voice ID: [id number] Report ID: [id number]
[2019-07-19] MEDS ORDERED: D50W 25 GM/50 ML SYRINGE/VIAL IV PRN (20:18)
[2019-07-19] MEDS ORDERED: GLUCAGON 1 MG/VIAL IM PRN (20:18)
[2019-07-19] MEDS ORDERED: FUROSEMIDE 20 MG TABLET PO SCH (21:00)
[2019-07-19] MEDS: AMOX/K CLAV 875 MG TAB PO SCH (21:28)
[2019-07-19] MEDS: PHENYTOIN ER 100 MG CAP PO SCH (21:29)
[2019-07-19] MEDS: ATORVASTATIN 40 MG TAB PO SCH (21:30)
[2019-07-19] MEDS: METOPROLOL XL 25 MG TAB PO SCH (21:30)
[2019-07-19] MEDS: FUROSEMIDE 20 MG TABLET PO SCH (21:40)
[2019-07-19] MEDS: SACUBITRIL/VALSARTAN 24/26 MG TAB PO SCH (21:40)
[2019-07-20] MEDS: ONDANSETRON 4 MG/2 ML VIAL IV PRN ×2 (05:25→22:54)
[2019-07-20 06:07] LABS: Absolute Lymphocytes (CBC) 2.3 K/uL (0.7-4.9); Basophils % 0.4 % (0-1.3); Hematocrit 32.5 % (36.0-45.0); MPV 10.6 fL (7.6-11.3)
[2019-07-20 06:18] LABS: Potassium 4.3 mmol/L (3.5-5.1)
[2019-07-20] MEDS: RIVAROXABAN 15 MG TABLET PO SCH (08:22)
[2019-07-20] MEDS: DIGOXIN 0.125 MG TABLET PO SCH (08:22)
[2019-07-20] MEDS: AMOX/K CLAV 875 MG TAB PO SCH ×2 (08:23→20:56)
[2019-07-20] MEDS: SACUBITRIL/VALSARTAN 24/26 MG TAB PO SCH ×2 (08:23→20:55)
[2019-07-20] MEDS: ASPIRIN EC 81 MG TAB PO SCH (08:23)
[2019-07-20] MEDS: METOPROLOL XL 25 MG TAB PO SCH ×2 (08:23→20:55)
[2019-07-20] MEDS: INSULIN -REGULAR HUMAN 50 UNIT/0.5 ML ML SQ SCH ×4 (08:24→20:54)
[2019-07-20] MEDS: PHENYTOIN ER 100 MG CAP PO SCH ×2 (08:26→20:56)
[2019-07-20] MEDS: NPH (HUMAN) 100 UNITS/ML INSULIN SQ SCH (08:31)
--- NOTE | 2019-07-20 10:44 | P.CNS ---
Date of Consult: 07/20/19 Reason for Consult: CKD Chief Complaint: Lightheadedness and chest pressure History of Present Illness: A 74-year-old woman with significant past medical history CHF EF 20% A/p AICD , CKD baseline ~1.5 , DM , Afib S/P ablation pt presented for chest discomfort pt was discharged 3 days ago , after she was admitted for tachycardia yesterday pt didn't feel well , BS <70, symptoms didint improve after drinking juice , she also reported chest pain denied palpitation, nausea, vomiting , diarrhea or constipation Past Medical History: 1. Coronary artery disease complicated with congestive heart failure, ejection fraction of 20%, status post ICD and ablation. 2. Hypertension. 3. Diabetes complicated with neuropathy. 4. Chronic kidney disease, baseline creatinine back in 2018 was 1.9, GFR of 26. Allergies: NO KNOWN DRUG ALLERGIES. Home Medications: Include Entresto, Xarelto, Dilantin, metoprolol, insulin, digoxin, atorvastatin. Current Medications In The Hospital: Include Xarelto, Dilantin, metoprolol, Lasix, digoxin, Tylenol. Past Surgical History: ICD placement, appendectomy, exploratory laparotomy. Family History: Positive for lung disease, coronary artery disease, and diabetes. Social History: Denies smoking. Denies drinking. Denies drug abuse. Physical Examination: general: AAOX3, NAD , obese Neck; Supple, No elevated JVD hear: RRR, normal S1,2 no murmur or rub Chest: CTAB, no rales or wheezes Abdomen: Soft , Nt Extremities No edema or ulcer A/P CKD III due to DM and HTN nephrosclerosis Cr stable renal dose meds CHF EF 20% cont entresto cont lasix Chest pain improved now plabn for stress test if pt will require cardiac cath , then will require gentle hydration and to hold entresto DM as per primary team HTN elevated will add coreg total time spent 45min Allergies No Known Allergies Allergy (Verified 07/19/19 02:02) Home Medications: Atorvastatin Calcium 40 mg PO BEDTIME 08/27/15 PHENYTOIN ER Cap [Dilantin ER Cap*] 200 mg PO BEDTIME 08/27/15 Rivaroxaban [Xarelto*] 15 mg PO DAILY 08/27/15 Furosemide [Lasix*] 40 mg PO SEECOM 04/07/16 Digoxin [Lanoxin*] 0.125 mg PO DAILY 07/16/19 Insulin -Regular Human [Novolin -R*] 0 unit SQ SEECOM 07/16/19 Insulin NPH Human Isophane [Novolin N] 25 unit SQ DAILY 07/16/19 Metoprolol Succinate 25 mg PO BID 07/16/19 Phenytoin Sodium Extended [Dilantin] 100 mg PO DAILY 07/16/19 Sacubitril/Valsartan [Entresto 24 mg-26 mg Tablet] 0.5 tab PO BID 07/16/19 Amox/Clavulanate [Augmentin 875-125 Tab*] 875 mg PO BID #10 tab 07/18/19 - Past Medical/Surgical History Diabetic: Yes -: seizures -: afib -: iddm -: hypertension -: hyperlipidemia -: chf -: bladder infection -: cad -: neuropathy -: w?EF 20-25% -: defibrilator -: PNA -: defib/pacemaker placement x2 -: exploratory lap -: appendectomy - Family History Father Medical History: Lung disease Mother Medical History: Heart disease, Hypertension, Diabetes Sister Medical History: Diabetes Brother Medical History: Diabetes, Kidney disease - Social History Smoking Status: Never smoker Alcohol use: No CD- Drugs: No Caffeine use: No Place of Residence: Home Physical Examination Temp Pulse Resp BP Pulse Ox 98.2 F 66 18 183/74 H 96 07/20/19 08:00 07/20/19 08:23 07/20/19 08:00 07/20/19 08:23 07/20/19 08:00
--- NOTE | 2019-07-20 11:27 | PN ---
Date of Progress Note: 07/20/2019 Subjective: Patient is seen and examined. Chart reviewed and case discussed with RN. Patient states she is having some twinges of chest pain, but significantly better. Medications: List reviewed. Code status full Physical Examination: Vital Signs: Temperature 98.1, heart rate 72, blood pressure 169/72, respirations 14, O2 94% on room air. General: Awake, alert, oriented x3. Elderly female, obese, in some mild distress. CV: S1, S2. Regular rate and rhythm. Peripheral pulses present. Respiratory: Moving air well bilaterally. No wheezing or stridor. No use of accessory muscles. Gastrointestinal: Abdomen is soft, nontender, nondistended. Positive bowel sounds. Extremities: No clubbing, cyanosis, or edema. Neuro: Cranial nerves 2 through 12 intact grossly. No focal neurological deficit. Speech is normal. Laboratory Data: WBC 7.6, H and H of 10.9 and 32.5, platelets 193. Assessment: 74-year-old female with: 1. Unstable angina. Patient has some elevated troponin levels. Plan is for stress test and may need coronary angiogram if abnormal. Appreciate Cardiology input. Continue with chest pain guidelines. 2. Chronic systolic congestive heart failure. Ejection fraction 25% to 30%. We will continue with beta-cindy, MARÍA inhibitor. 3. Diabetes mellitus type 2, insulin requiring. We will continue with sliding scale insulin and monitor blood glucose levels. We will need to adjust insulin dose as blood glucose levels are still very elevated. We will place on aggressive scale. 4. Atrial fibrillation. Patient is on Xarelto. Continue beta-blockers for rate control. Atrial fibrillation is paroxysmal. 5. Essential hypertension. Continue home medications. 6. Mixed hyperlipidemia. Continue statin. 7. Coronary artery disease, [place] artery, [place] heart, currently with angina. Continue aspirin. 8. Status post defibrillator pacemaker placement. 9. Obesity, BMI 36. 10. Chronic kidney disease, stage 3. We will consult Nephrology. Plan: Stress test scheduled. Patient also had recent SVT. We will continue to monitor closely. /CAMERON Voice ID: [id number] Report ID: [id number] MELISSA
[2019-07-20] MEDS: carvediloL 3.125 MG TAB PO SCH (17:29)
[2019-07-20] MEDS: ATORVASTATIN 40 MG TAB PO SCH (20:55)
[2019-07-21] MEDS: carvediloL 3.125 MG TAB PO SCH (05:13)
[2019-07-21] MEDS: ONDANSETRON 4 MG/2 ML VIAL IV PRN (05:14)
[2019-07-21 05:46] LABS: Potassium 4.3 mmol/L (3.5-5.1)
[2019-07-21] MEDS: INSULIN -REGULAR HUMAN 50 UNIT/0.5 ML ML SQ SCH ×4 (07:30→21:00)
[2019-07-21] MEDS ORDERED: REGADENOSON 0.4 MG/5 ML SYR IV ONE (08:39)
[2019-07-21] MEDS: METOPROLOL XL 25 MG TAB PO SCH ×3 (09:00→21:58)
[2019-07-21] MEDS: ASPIRIN EC 81 MG TAB PO SCH ×2 (09:00→10:01)
[2019-07-21] MEDS: SACUBITRIL/VALSARTAN 24/26 MG TAB PO SCH ×3 (09:00→21:59)
[2019-07-21] MEDS: RIVAROXABAN 15 MG TABLET PO SCH ×2 (09:00→10:01)
[2019-07-21] MEDS: NPH (HUMAN) 100 UNITS/ML INSULIN SQ SCH (09:00)
[2019-07-21] MEDS: AMOX/K CLAV 875 MG TAB PO SCH ×2 (09:00→10:01)
[2019-07-21] MEDS: DIGOXIN 0.125 MG TABLET PO SCH ×2 (09:00→10:00)
[2019-07-21] MEDS: PHENYTOIN ER 100 MG CAP PO SCH ×3 (09:00→21:59)
--- NOTE | 2019-07-21 10:17 | RAD REPORT ---
EXAM DESCRIPTION: NM - Rest Stress Cardiac Imaging - 07/21/2019 9:53 am CLINICAL HISTORY: Chest pain COMPARISON: December 2008 TECHNIQUE: The patient was administered approximately 10 mCi of Tc 99m Sestamibi prior to resting SP ECT imaging of the heart. The patient was then administered approximately 30 mCi of Tc 99m Sestamibi following exercise or pharmacologic stress. Multiplanar SPECT images were reviewed. FINDINGS: The end diastolic volume is 148 ml, the end systolic volume is 96 ml, and the ejection fra ction is 35 %. These ventricular volumes and ejection fraction or abnormal but all are improved from 2009. Small focal area of decreased activity is seen in the anteroseptal wall near the apex on the stress i maging. This is absent or less prominent on the rest sequencing. Small skin neo focus is suspected. Diminished activity along the inferior wall does not change between rest and stress imaging. No other area of possible ischemia and no large area of scarring. IMPRESSION: Small focus of stress ischemia suspected anteroseptal wall near the apex. No other areas of ischemia or scarred myocardium seen. Abnormal ventricular volume of 148 milliliters. Ejection fraction is poor 35%. Although abnormal, the se values are better than seen in 2009.
--- NOTE | 2019-07-21 14:40 | TREADPHA ---
DX: CHEST PAIN Date of Study: 07/21/2019 Ht: 5' 0 " Wt: 184 lb 8 oz Consulting Physician: CEE MEDICATIONS: ASPIRIN, LIPITOR, COREG, LANOXIN, NOVOLIN-R, TPOROL XL, XARELTO HISTORY: 74 YEAR OLD FEMALE WITH COMPLAINTS OF CHEST PAIN. HISTORY OF NON INSULIN DEPENDENT DIABETES MELLITUS, HYPERTENSION, NEUROPATHY, SEIZURES, NON SMOKER AND NON DRINKER. PHYSICIAL EXAMINATION: RESTING B.P.: 171/73 RESTING H.R.: 76 RESTING EKG: [*] PROTOCOL: LEXISCAN EXERCISE TIME: 3:30 B.P. AT PEAK STRESS: 136/52 IMPRESSION: LEXISCAN INJECTED, FOLLOWED BY CARDIOLITE PER PROTOCOL. SEE NUCLEAR MEDICINE REPORT. NO SUPRAVENTRICULAR TACHYCARDIA, VENTRICULAR TACHYCARDIA OR PREMATURE ATRIAL COMPLEXES NOTED. OCCASIONAL PREMATURE VENTRICULAR COMPLEXES NOTED. PATIENT REPORTS NO CHEST PAIN. PACED RHYTHM, NO ST OR T CHAGES.
--- NOTE | 2019-07-21 15:25 | PN ---
Date of Progress Note: 07/21/2019 Patient seen and examined. Chart reviewed and case discussed with RN and Dr. Moore. Patient went for cardiac stress test today, which came back positive. Patient denies any chest pain at this time. Medications: List reviewed. Physical Examination: Vital Signs: Temperature 96.9, heart rate 65, blood pressure 162/69, respirations 15, O2 99% on room air. General: Awake, alert, oriented x3. Elderly female, obese. CV: S1, S2. Regular rate and rhythm. Peripheral pulses present. Respiratory: Moving air well bilaterally. No wheezing or stridor. No use of accessory muscles. Gastrointestinal: Abdomen is soft, nontender, nondistended. Positive bowel sounds. Extremities: No clubbing, cyanosis, or edema. Neurologic: Nonfocal. Laboratory Data: Sodium 144, potassium 4.3, chloride 112, CO2 of 25, BUN 41, creatinine 1.47, glucose 195, calcium 8.4. Cardiac stress test shows small focus of stress ischemia, suspected anteroseptal wall near the apex. No other areas of ischemia or scarred myocardium. EF poor at 35%. Assessment And Plan: 74-year-old female with: 1. Acute coronary syndrome. Patient has positive stress test with anteroseptal wall ischemia. Patient will go for heart catheterization. Case discussed with Dr. Moore. Continue with chest pain guidelines. Can not have cath today as she has taken her anti-coag this morning. 2. Chronic systolic congestive heart failure. Ejection fraction 25% to 30%. We will continue with beta-cindy and angiotensin converting enzyme inhibitor. Monitor I's and O's, free fluid restriction. 3. Atrial fibrillation, paroxysmal. Hold Xarelto tonight in anticipation of heart cath. Continue beta-cindy for rate control. 4. Diabetes mellitus type 2, insulin requiring, with hyperglycemia. We will continue sliding scale insulin. Monitor blood glucose levels. 5. Essential hypertension, stable. 6. Chronic kidney disease stage 3. Nephrology has been consulted. Anticipate creatinine to worsen with contrast if the patient will receive heart cath. 7. Mixed hyperlipidemia. We will continue statin. 8. Coronary artery disease, [place] artery and [place] heart with angina. Continue aspirin. 9. Status post defibrillator pacemaker placement, recently interrogated. 10. Recent supraventricular tachycardia. Unable to tolerate higher dose of beta-cindy due to bradycardia. 11. Obesity, BMI 36. Plan: Anticipate heart cath. /CAMERON Voice ID: [id number] Report ID: [id number] MTDArgenis
--- NOTE | 2019-07-21 17:31 | ER ---
Nurse's Notes [facility] Name: Teena Simpson Age: 74 yrs Sex: Female : 1945 Arrival Date: 07/18/2019 Time: 23:03 Bed 7 Private MD: Diagnosis: Syncope and collapse;Heart failure Presentation: 07/17 23:04 Chief complaint: EMS states: Called for patient with dizziness and chest pressure that lp1 began while she was cooking; Patient states discharged earlier today from hospital for cardiac issues. Coronavirus screen: Proceed with normal triage. Ebola Screen: No symptoms or risks identified at this time. Initial Sepsis Screen: Does the patient meet any 2 criteria? No. Patient's initial sepsis screen is negative. Does the patient have a suspected source of infection? No. Patient's initial sepsis screen is negative. Risk Assessment: Do you want to hurt yourself or someone else? Patient reports no desire to harm self or others. Onset of symptoms was July 18, 2019. 23:04 Method Of Arrival: EMS: [facility] lp1 23:04 Acuity: TYSON 3 lp1 Historical: - Allergies: 23:11 No Known Allergies; lp1 - Home Meds: 23:11 atorvastatin 40 mg Oral tab 1 tab once daily [Active]; furosemide 40 mg Oral tab once lp1 daily [Active]; gabapentin 300 mg Oral cap nightly [Active]; Lantus 50units Sub-Q soln nightly [Active]; Novolog 100 unit/mL Sub-Q soln 15 unit twice a day [Active]; Phenytoin 100mg Oral 2 tabs twice a day [Active]; spironolactone 25 mg Oral tab once daily [Active]; Xarelto 15 mg Oral tab [Active]; - PMHx: 23:11 Anxiety; Diabetes - IDDM; High Cholesterol; Hypertension; Myocardial infarction; lp1 neuropathy; Seizures; - PSHx: 23:11 None; lp1 - Immunization history:: Adult Immunizations up to date. - Social history:: Smoking status: Patient denies any tobacco usage or history of. Screenin:12 Abuse screen: Denies threats or abuse. Denies injuries from another. Nutritional lp1 screening: No deficits noted. Tuberculosis screening: No symptoms or risk factors identified. Fall Risk None identified. Assessment: 23:12 General: Appears in no apparent distress. Behavior is calm, cooperative, appropriate lp1 for age. Pain: Complains of pain in chest Pain does not radiate. Pain currently is 5 out of 10 on a pain scale. Quality of pain is described as pressure, Pain began suddenly. Neuro: Level of Consciousness is awake, alert, obeys commands, Oriented to person, place, time, situation. Cardiovascular: Reports chest pain, lightheadedness, Patient's skin is warm and dry. Rhythm is Paced. Respiratory: Respiratory effort is even, unlabored. GI: No signs and/or symptoms were reported involving the gastrointestinal system. : No signs and/or symptoms were reported regarding the genitourinary system. EENT: No signs and/or symptoms were reported regarding the EENT system. Derm: Skin is pink, warm \T\ dry. Musculoskeletal: No deficits noted. 07/18 00:15 Reassessment: Patient appears in no apparent distress at this time. Patient stats lp1 feeling sleepy but unable to fall asleep. 00:37 Reassessment: Dr. Peralta at bedside to discuss care with patient. lp1 Vital Signs: 07/17 23:04 BP 154 / 67; Pulse 98; Resp 18; Temp 98.9(O); Pulse Ox 99% on R/A; Weight 80.29 kg (R); lp1 Height 5 ft. 0 in. (152.40 cm); 07/18 00:00 BP 147 / 61; Pulse 92; Resp 18; Pulse Ox 97% on R/A; lp1 00:30 BP 162 / 80; Pulse 91; Resp 18; Pulse Ox 97% on R/A; lp1 01:00 BP 126 / 57; Pulse 89; Resp 20; Pulse Ox 96% on R/A; lp1 02:12 BP 114 / 68; Pulse 85; Resp 14; Pulse Ox 96% on R/A; lp1 07/17 23:04 Body Mass Index 34.57 (80.29 kg, 152.40 cm) lp1 ED Course: 07/17 23:03 Patient arrived in ED. sg 23:04 Sherri Moya, WM is Primary Nurse. lp1 23:05 Ritchie Gomez PA is PHCP. [facility] 23:06 Warren Pitts MD is Attending Physician. [facility] 23:07 Triage completed. lp1 23:10 Arm band placed on. lp1 23:11 Patient has correct armband on for positive identification. Bed in low position. lp1 monitor tech on. Pulse ox on. NIBP on. 23:14 Patient maintains SpO2 saturation greater than 95% on room air. lp1 23:20 Inserted saline lock: 22 gauge in left forearm, using aseptic technique. Blood ds4 collected. 23:30 PT-INR Sent. ds4 23:30 Troponin (emerg Dept Use Only) Sent. ds4 23:30 NT PRO-BNP Sent. ds4 23:30 Magnesium Sent. ds4 23:30 CBC with Diff Sent. ds4 23:30 Basic Metabolic Panel Sent. ds4 23:30 LFT's Sent. ds4 23:33 XRAY Chest (1 view) In Process Unspecified. EDMS 07/18 00:29 Mina Peralta is Hospitalizing Provider. [facility] 00:41 No provider procedures requiring assistance completed. Patient admitted, IV remains in lp1 place. Administered Medications: No medications were administered Outcome: 00:30 Decision to Hospitalize by Provider. [facility] 00:42 Condition: stable lp1 00:42 Instructed on the need for admit. 02:19 Admitted to Med/surg via wheelchair, room 215, with chart, Report called to WM Tsai lp1 02:37 Patient left the ED. [facility] Signatures: Dispatcher [employer] EDMS Jesus Cruz, RN RN Ritchie Gomez PA PA [facility] Sherri Moya RN RN lp1 Alexander Arreguin ds4 Corrections: (The following items were deleted from the chart) 07/17 23:10 23:04 BP 154 / 67; Pulse 51bpm; Resp 18bpm; Pulse Ox 99% RA; Temp 98.9F Oral; 80.29 kg lp1 Reported; Height 5 ft. 0 in.; BMI: 34.5; lp1
--- NOTE | 2019-07-21 17:31 | EDPHYS ---
Physician Documentation [facility] Name: Teena Simpson Age: 74 yrs Sex: Female : 1945 Arrival Date: 07/18/2019 Time: 23:03 Bed 7 Private MD: ED Physician Warren Pitts HPI: 07/17 23:04 This 74 yrs old Female presents to ER via EMS with complaints of Irregular jmm Pulse. 23:04 The patient has experienced near-syncope, almost passed out, felt generally weak. jmm Onset: The symptoms/episode began/occurred acutely, just prior to arrival. Duration: This was a single episode. Context: occurred while the patient was standing. Associated injury: The patient did not suffer any apparent associated injury. Associated signs and symptoms: Pertinent positives: lightheadedness. This is a 74 year old female with a history of DM, HLP, HTN, AMI, heart failure that presents to the ED with complaints of weakness. Patient was discharged from the hospital today with heart failure. Patient states she felt well upon discharge. Patient states she stood up just prior to arrival and states almost passing out. Patient has felt more weak since. . Historical: - Allergies: 23:11 No Known Allergies; lp1 - Home Meds: 23:11 atorvastatin 40 mg Oral tab 1 tab once daily [Active]; furosemide 40 mg Oral tab once lp1 daily [Active]; gabapentin 300 mg Oral cap nightly [Active]; Lantus 50units Sub-Q soln nightly [Active]; Novolog 100 unit/mL Sub-Q soln 15 unit twice a day [Active]; Phenytoin 100mg Oral 2 tabs twice a day [Active]; spironolactone 25 mg Oral tab once daily [Active]; Xarelto 15 mg Oral tab [Active]; - PMHx: 23:11 Anxiety; Diabetes - IDDM; High Cholesterol; Hypertension; Myocardial infarction; lp1 neuropathy; Seizures; - PSHx: 23:11 None; lp1 - Immunization history:: Adult Immunizations up to date. - Social history:: Smoking status: Patient denies any tobacco usage or history of. ROS: 23:04 Constitutional: Negative for fever, chills, and weight loss. jmm 23:04 Respiratory: Negative for shortness of breath, cough, wheezing, and pleuritic chest pain, Abdomen/GI: Negative for abdominal pain, nausea, vomiting, diarrhea, and constipation. 23:04 Cardiovascular: Positive for chest pain. 23:04 Neuro: Positive for weakness. 23:04 Neuro: Positive for syncope. 23:04 All other systems are negative. Exam: 23:04 Constitutional: This is a well developed, well nourished patient who is awake, alert, jmm and in no acute distress. Head/Face: atraumatic. Eyes: EOMI, no conjunctival erythema appreciated ENT: Moist Mucus Membranes Neck: Trachea midline, Supple Chest/axilla: Normal chest wall appearance and motion. 23:04 Respiratory: Normal respirations, no respiratory distress appreciated Abdomen/GI: Non distended, soft Back: Normal ROM Skin: General appearance color normal MS/ Extremity: Moves all extremities, no obvious deformities appreciated, no edema noted to the lower extremities Neuro: Awake and alert, normal gait Psych: Behavior is normal, Mood is normal, Patient is cooperative and pleasant 23:04 Cardiovascular: Rate: normal, Rhythm: regular, Pulses: no pulse deficits are appreciated. Vital Signs: 23:04 BP 154 / 67; Pulse 98; Resp 18; Temp 98.9(O); Pulse Ox 99% on R/A; Weight 80.29 kg (R); lp1 Height 5 ft. 0 in. (152.40 cm); 07/18 00:00 BP 147 / 61; Pulse 92; Resp 18; Pulse Ox 97% on R/A; lp1 00:30 BP 162 / 80; Pulse 91; Resp 18; Pulse Ox 97% on R/A; lp1 01:00 BP 126 / 57; Pulse 89; Resp 20; Pulse Ox 96% on R/A; lp1 02:12 BP 114 / 68; Pulse 85; Resp 14; Pulse Ox 96% on R/A; lp1 07/17 23:04 Body Mass Index 34.57 (80.29 kg, 152.40 cm) [facility] MDM: 07/17 23:16 Patient medically screened. [facility] 07/18 00:29 Data reviewed: vital signs, nurses notes. Counseling: I had a detailed discussion with [facility] the patient and/or guardian regarding: the historical points, exam findings, and any diagnostic results supporting the discharge/admit diagnosis, lab results, radiology results, the need for further work-up and treatment in the hospital. ED course: I discussed the patient with Dr. Peralta whom accepted admission. . 07/17 23:06 Order name: Basic Metabolic Panel; Complete Time: 23:59 [facility] 07/17 23:06 Order name: CBC with Diff; Complete Time: 23:47 [facility] 07/17 23:06 Order name: LFT's; Complete Time: 23:59 [facility] 07/17 23:06 Order name: Magnesium; Complete Time: 23:59 [facility] 07/17 23:06 Order name: NT PRO-BNP; Complete Time: 23:59 [facility] 07/17 23:06 Order name: PT-INR; Complete Time: 00:12 [facility] 07/17 23:06 Order name: Troponin (emerg Dept Use Only); Complete Time: 23:59 [facility] 07/17 23:06 Order name: XRAY Chest (1 view) [facility] 07/17 23:06 Order name: EKG; Complete Time: 23:08 [facility] 07/17 23:06 Order name: Cardiac monitoring; Complete Time: 23:12 [facility] 07/17 23:06 Order name: EKG - Nurse/Tech; Complete Time: 23:12 [facility] 07/17 23:06 Order name: IV Saline Lock; Complete Time: 23:30 [facility] 07/17 23:06 Order name: Labs collected and sent; Complete Time: 23:30 [facility] 07/17 23:06 Order name: O2 Per Protocol; Complete Time: 23:12 [facility] 07/17 23:06 Order name: O2 Sat Monitoring; Complete Time: 23:12 jm Administered Medications: No medications were administered Disposition: 05:36 Co-signature as Attending Physician, Warren Pitts MD. 7 Disposition: 07/19/19 00:30 Hospitalization ordered by Mina Peralta for Observation. Preliminary diagnosis are Syncope and collapse, Heart failure. - Bed requested for Telemetry/MedSurg (observation). - Status is Observation. lp1 - Condition is Stable. - Problem is new. - Symptoms are unchanged. Signatures: Dispatcher [employer] EDMS Ritchie Gomez PA PA m Sherri Moya RN RN 1 Jeanette Mckeon RN RN Warren Pitts MD MD 7 Corrections: (The following items were deleted from the chart) 01:39 00:30 Hospitalization Ordered by Mina Peralta for Observation. Preliminary diagnosis cg is Syncope and collapse; Heart failure. Bed requested for Telemetry/MedSurg (observation). Status is Observation. Condition is Stable. Problem is new. Symptoms are unchanged. maria 02:37 01:39 07/19/2019 00:30 Hospitalization Ordered by Mina Peralta for Observation. lp1 Preliminary diagnosis is Syncope and collapse; Heart failure. Bed requested for Telemetry/MedSurg (observation). Status is Observation. Condition is Stable. Problem is new. Symptoms are unchanged. cg
--- NOTE | 2019-07-21 19:26 | PN ---
Date of Progress Note: 07/21/2019 Subjective: Seen at the bedside. No new complaints of chest pain. Review of Systems: No chest pain, shortness of breath, orthopnea, or cough. No nausea, vomiting, diarrhea. No abdomina l pain. No history of urinary urgency. All other systems reviewed, all are negative. Physical Examination: Vital Signs: Temperature is 96.9, pulse 65, breathing at 15, blood pressure 162/69, saturating 99%. General: This is an elderly female, in no apparent distress. Head And Neck: Pupils are equal and reactive to light. Intact eye movements. No cervical adenopath y. Neck is supple. Thyroid is not enlarged. Lungs: Clear to auscultation bilateral. No rhonchi, rales, or crackles. No accessory muscle use. Heart: Irregular with an aortic systolic murmur. Abdomen: Soft, nontender. Bowel sounds positive. No organomegaly. No tenderness to palpation. Extremities: Trace edema bilaterally. No clubbing, cyanosis. Intact pulses. Skin: No rashes or lesions. Neuro: Alert, awake, and oriented x3. No acute focal deficit appreciated. Investigations: Creatinine is 1.47, which is improved from prior hospitalization and hemoglobin is 1 0.9. Assessment And Plan: 1.Chest pain in the setting of presence of mild nonobstructive coronary artery disease with elevated troponin, likely suggesting a non-ST elevation myocardial infarction. Patient is on Xarelto, this w as held and had a stress test that suggested reversible anterolateral ischemia. No plan for coronary angiogram tomorrow morning. Keep n.p.o. past midnight and stop the Xarelto. Recent echo showed eje ction fraction in the 30% to 35% range, which is better than her usual. 2.History of severe systolic congestive heart failure. This seems to be stable. We would like to o btain LVEDP during the heart catheterization. 3.Hypertension. Blood pressure is elevated. Recommend increasing metoprolol to 50 mg twice a day. SR/MODL Voice ID: [id number] Report ID: [id number]
[2019-07-21] MEDS ORDERED: ACETYLCYST 6,000 MG/30 ML VIAL PO SCH (21:00)
[2019-07-21] MEDS: FUROSEMIDE 20 MG TABLET PO SCH (21:58)
[2019-07-21] MEDS: ATORVASTATIN 40 MG TAB PO SCH (21:59)
[2019-07-21] MEDS: AMOX/K CLAV 500 MG TAB PO SCH (21:59)
[2019-07-21] MEDS: ACETYLCYST 20% 800 MG/4 ML VIAL PO SCH (21:59)
--- NOTE | 2019-07-22 01:54 | PN ---
Date of Progress Note: 07/21/2019 Chief Complaint: Acute on chronic kidney injury, severe cardiorenal syndrome. Patient has severe systolic dysfunction congestive heart failure with ejection fraction of 20%. She is on Entresto and Lasix. She has diabetes mellitus with hypertension and hypertensive nephroscleros is. Creatinine level has been stable over last 24 hours. Patient is on Lasix and Coreg for congesti ve heart failure. Review of Systems: Denies new complaints. Physical Examination: Lungs: Coarse breath sounds bilaterally. Heart: S1, S2. Abdomen: Soft, benign. Extremities: Edema present in both legs. Impression And Plan: 1.Acute on chronic cardiorenal syndrome, continue Lasix for volume control. Patient will require ca rdiac catheterization and this may create high risk of contrast induced nephropathy. Monitor electro lytes when patient is on diuretics. 2.Diabetes mellitus with renal manifestation. Continue insulin. MANOJ/MODL Voice ID: [id number] Report ID: [id number]
[2019-07-22] MEDS ORDERED: NA CHLORIDE 0.9% 1,000 ML ONE (05:39)
[2019-07-22] MEDS: ASPIRIN EC 81 MG TAB PO SCH (05:52)
[2019-07-22] MEDS: ONDANSETRON 4 MG/2 ML VIAL IV PRN ×2 (05:52→14:40)
[2019-07-22] MEDS: METOPROLOL XL 25 MG TAB PO SCH ×2 (05:53→20:34)
[2019-07-22 06:33] LABS: Absolute Lymphocytes (CBC) 2.4 K/uL (0.7-4.9); Basophils % 0.4 % (0-1.3); Hematocrit 32.9 % (36.0-45.0); Lymphocytes % 29.9 % (15.3-44.8); MPV 10.6 fL (7.6-11.3); RBC Red Blood Cell Count 3.42 M/uL (3.86-4.86)
[2019-07-22 06:35] LABS: Potassium 4.3 mmol/L (3.5-5.1)
[2019-07-22] MEDS: INSULIN -REGULAR HUMAN 50 UNIT/0.5 ML ML SQ SCH ×4 (07:30→20:35)
[2019-07-22] MEDS: NPH (HUMAN) 100 UNITS/ML INSULIN SQ SCH (08:06)
[2019-07-22] MEDS: AMOX/K CLAV 500 MG TAB PO SCH ×2 (08:06→20:34)
[2019-07-22] MEDS: PHENYTOIN ER 100 MG CAP PO SCH ×3 (08:06→20:34)
[2019-07-22] MEDS: SACUBITRIL/VALSARTAN 24/26 MG TAB PO SCH ×3 (08:06→20:33)
[2019-07-22] MEDS: DIGOXIN 0.125 MG TABLET PO SCH (08:06)
[2019-07-22] MEDS: ACETYLCYST 20% 800 MG/4 ML VIAL PO SCH ×3 (08:06→20:42)
[2019-07-22] MEDS ORDERED: HEPA 1000U/500MLS 1,000 UNIT/500 ML BAG IV ONE (10:15)
[2019-07-22] MEDS ORDERED: MIDAZOLAM HCL 2 MG/2 ML INJ ONE ×2 (10:18→11:08)
[2019-07-22] MEDS ORDERED: ATROPINE SULF 1 MG/10 ML SYR IV ONE (10:19)
[2019-07-22] MEDS ORDERED: FENTANYL CITR 100 MCG/2 ML ONE (10:19)
[2019-07-22] MEDS ORDERED: NA CHLORIDE 0.9% 0 ML ONE (10:19)
--- NOTE | 2019-07-22 11:59 | OP ---
Surgeon: Ross Graf MD Insurance Special Agent: Harpal Wahl. The patient will be at bedrest after Angio-Seal for 2 hours. I will discuss the case further with Dr Karen Ritter. I think she can go home later on today. She will follow up with her buffing wheel former automatic, Dr. Heath in [place]. Procedure: The patient was admitted to Dr. French on 07/19/2019, had arrhythmias, positive troponin, has had a history of CHF, status post defibrillator, has pacemaker, was scheduled for a heart cathete rization today as an inpatient on 07/22/2019. The patient underwent a left heart catheterization with selective coronary arteriogram. Description For Procedure: The patient was prepped and draped in the routine sterile fashion. Given Versed and fentanyl for sedation. A 6-Azeri sheath introduced in the right common femoral artery s uccessfully. Angio-Seal was used to close the case. Josefina catheter left and right Josefina 6-Frenc h were used to cannulate the left main and the right main respectively. She was found to have a 40% ostial ramus. The LAD was normal. RCA was normal. She had a normal circumflex itself. She was cod ominant. There were no complications. Blood Loss: 5 mL. Total Conscious Sedation: 30 minutes. Postoperative Diagnosis: Mild coronary artery disease. Plan: To continue medical therapy. PRAVEEN/CAMERON Voice ID: [id number] Report ID: [id number]
[2019-07-22] MEDS ORDERED: NA CHLORIDE 0.9% 1,000 ML IV SCH (12:00)
--- NOTE | 2019-07-22 12:39 | P.PN ---
Subjective Date of Service: 07/22/19 Chief Complaint: Lightheadedness and chest pressure Subjective: No new changes, No C/O voiced Review of Systems General: Unremarkable Eyes: Unremarkable ENT: Unremarkable Respiratory: Unremarkable Cardiovascular: As per HPI Gastrointestinal: Unremarkable Genitourinary: Unremarkable Musculoskeletal: Unremarkable Integumentary: Unremarkable Neurological: Unremarkable Lymphatics: Unremarkable Physical Examination - Vital Signs Temperature: 97.3 F Blood Pressure: 150/62 Pulse: 71 Respirations: 16 Pulse Ox (%): 97 - Physical Exam General: Alert, In no apparent distress HEENT: Atraumatic, Normocephalic Neck: Supple Respiratory: Clear to auscultation bilaterally, Normal air movement Cardiovascular: No edema Gastrointestinal: Normal bowel sounds Musculoskeletal: No clubbing Integumentary: No rashes Neurological: Normal speech Assessment & Plan Discharge Plan: Home Plan to discharge in: 24 Hours - Code Status/Comfort Care Code Status Assessed: Yes Physician Review Additional Text: Assessment Acute coronary syndrome/status post heart catheterization Chronic systolic congestive heart failure Atrial fibrillation, paroxysmal. Diabetes mellitus type 2, insulin requiring, with hyperglycemia Essential hypertension, stable Chronic kidney disease stage 3 Mixed hyperlipidemia Coronary artery disease Status post defibrillator pacemaker placement Recent supraventricular tachycardia Plan Acute coronary syndrome status post heart catheterization patient had heart catheterization today which showed minimal disease. No stents required. Will continue with aspirin at this time. Patient is to followup with cardiology on an outpatient basis. Anticipate discharge the next 24 hr. Chronic systolic congestive heart failure. Ejection fraction 25% to 30%. We will continue with beta-cindy and angiotensin converting enzyme inhibitor. Monitor I's and O's, free fluid restriction. Atrial fibrillation, paroxysmal. Will resume patient's Xarelto and continue beta cindy. Diabetes mellitus type 2, insulin requiring, with hyperglycemia. We will continue sliding scale insulin. Monitor blood glucose levels. Essential hypertension, stable. Continue patient's home medications. Chronic kidney disease stage 3. Nephrology has been consulted. Nephrology wishes to keep patient in the hospital for another day since she was given contrast with heart catheterization and also is taking and Entresto Mixed hyperlipidemia. We will continue statin. Coronary artery disease, [place] artery and [place] heart with angina. Continue aspirin, follow up with Cardiology on an outpatient basis. Heart cath shows minimal disease this time. The stents required. Status post defibrillator pacemaker placement, recently interrogated. Recent supraventricular tachycardia. Unable to tolerate higher dose of beta- cindy due to bradycardia. Will continue to monitor patient on telemetry. Critical Care: No Time Spent Managing Pts Care (In Minutes): 55
--- NOTE | 2019-07-22 14:21 | RAD REPORT ---
EXAM DESCRIPTION: Lou Single View07/22/2019 2:10 pm CLINICAL HISTORY: Chest pain COMPARISON: July 18, 2019 FINDINGS: The lungs appear clear of acute infiltrate. The heart is mildly enlarged. Pacemaker leads are in place. IMPRESSION: No acute abnormalities displayed
--- NOTE | 2019-07-22 16:51 | PN ---
Date of Progress Note: 07/22/2019 Subjective: Patient was admitted with acute kidney injury secondary to cardiorenal over volume. Pooja galloway had been on diuresis, recovering very well. Kidney function has been improving. Patient underg o cardiac cath today. Physical Examination: Vital Signs: Blood pressure 150/62, pulse of 71. Chest: Faint rales on the left base. Heart: S1, S2. Regular. Abdomen: Soft, nontender. Extremities: Trace edema. Neurologic: Alert. No focal. Laboratory Data: Sodium 142, potassium 4.3, bicarb 25, BUN 40, creatinine 1.5, calcium 8.3. WBC 8.1 , H and H 10.9/32.9, platelets 157. Current Medications: The patient on include: 1.Augmentin. 2.Xarelto. 3.Atorvastatin. 4.Metoprolol 25 b.i.d. 5.Entresto. 6.Lasix 40 every other day. 7.Insulin. 8.Mucomyst. Assessment And Plan: 1.Acute kidney injury secondary to cardiorenal, start to wean on normal volume. I am going to edu nue current diuresis dose. We will hold the diuresis for today given that the patient exposed to con trast. We will hydrate the patient with normal saline 50 per hour. Given the fact that the patient was started already on Mucomyst, we will continue and we will follow up. 2.Hypertension, controlled optimal. Continue current medication as I mentioned. We will hold her L asix for today. I am going to go ahead and increase Entresto for better blood pressure control. 3.We will repeat chest x-ray for better evaluation of the fluid status. 4.Coronary artery disease, [id number] myocardial infarction as by Cardiology, status post card iac cath today. We will follow up kidney function after the contrast. MARCELLA/CAMERON Voice ID: [id number] Report ID: [id number]
[2019-07-22] MEDS: ATORVASTATIN 40 MG TAB PO SCH (20:33)
[2019-07-22] MEDS ORDERED: ACETYLCYST 6,000 MG/30 ML VIAL ONE (20:47)
[2019-07-23] MEDS: ONDANSETRON 4 MG/2 ML VIAL IV PRN (03:29)
[2019-07-23 05:35] LABS: Absolute Lymphocytes (CBC) 1.9 K/uL (0.7-4.9); Basophils % 0.4 % (0-1.3); Hematocrit 30.1 % (36.0-45.0); Lymphocytes % 21.6 % (15.3-44.8); MPV 10.7 fL (7.6-11.3); RBC Red Blood Cell Count 3.15 M/uL (3.86-4.86)
[2019-07-23 05:52] LABS: Potassium 4.6 mmol/L (3.5-5.1)
[2019-07-23] MEDS: ACETYLCYST 20% 800 MG/4 ML VIAL PO SCH (09:00)
[2019-07-23] MEDS: INSULIN -REGULAR HUMAN 50 UNIT/0.5 ML ML SQ SCH ×2 (09:01→12:38)
[2019-07-23] MEDS: NPH (HUMAN) 100 UNITS/ML INSULIN SQ SCH (09:02)
[2019-07-23 09:08] VITALS: O2SAT 93
[2019-07-23] MEDS: ASPIRIN EC 81 MG TAB PO SCH (09:08)
[2019-07-23] MEDS: SACUBITRIL/VALSARTAN 24/26 MG TAB PO SCH (09:10)
[2019-07-23] MEDS: METOPROLOL XL 25 MG TAB PO SCH (09:11)
[2019-07-23] MEDS: AMOX/K CLAV 500 MG TAB PO SCH (09:12)
[2019-07-23] MEDS: PHENYTOIN ER 100 MG CAP PO SCH (09:12)
[2019-07-23] MEDS: DIGOXIN 0.125 MG TABLET PO SCH (11:02)
--- NOTE | 2019-07-23 11:41 | P.DS ---
Admission Date: 07/21/19 Discharge Date: 07/23/19 Primary Care Provider: Dr. Moscoso([facility]); Cardiology-Dr. Heath([facility]) Disposition: ROUTINE DISCHARGE Discharge Condition: GOOD Reason for Admission: Lightheadedness and chest pressure Consultations: Nephrology-Dr. Colvin Cardiology-Dr. Garf/Dr. Moore Procedures: Cardiac stress test: COMPARISON: December 2008 TECHNIQUE: The patient was administered approximately 10 mCi of Tc 99m Sestamibi prior to resting SPECT imaging of the heart. The patient was then administered approximately 30 mCi of Tc 99m Sestamibi following exercise or pharmacologic stress. Multiplanar SPECT images were reviewed. FINDINGS: The end diastolic volume is 148 ml, the end systolic volume is 96 ml, and the ejection fraction is 35 %. These ventricular volumes and ejection fraction or abnormal but all are improved from 2008. Small focal area of decreased activity is seen in the anteroseptal wall near the apex on the stress imaging. This is absent or less prominent on the rest sequencing. Small skin neo focus is suspected. Diminished activity along the inferior wall does not change between rest and stress imaging. No other area of possible ischemia and no large area of scarring. IMPRESSION: Small focus of stress ischemia suspected anteroseptal wall near the apex. No other areas of ischemia or scarred myocardium seen. Abnormal ventricular volume of 148 milliliters. Ejection fraction is poor 35%. Although abnormal, these values are better than seen in 2008. Heart catheterization: Surgeon: Ross Graf MD Electrical Electronics Technician: Harpal Wahl. The patient will be at bedrest after Angio-Seal for 2 hours. I will discuss the case further with Dr. Ritter. I think she can go home later on today. She will follow up with her conventions reservationist, Dr. Heath in [place]. Procedure: The patient was admitted to Dr. French on 07/19/2019, had arrhythmias, positive troponin, has had a history of CHF, status post defibrillator, has pacemaker, was scheduled for a heart catheterization today as an inpatient on 07/22/2019. The patient underwent a left heart catheterization with selective coronary arteriogram. Description For Procedure: The patient was prepped and draped in the routine sterile fashion. Given Versed and fentanyl for sedation. A 6-Estonian sheath in troduced in the right common femoral artery successfully. Angio-Seal was used to close the case. Josefina catheter left and right Josefina 6-Estonian were used to cannulate the left main and the right main respectively. She was found to have a 40% ostial ramus. The LAD was normal. RCA was normal. She had a normal circumflex itself. She was codominant. There were no complications. Blood Loss: 5 mL. Total Conscious Sedation: 30 minutes. Postoperative Diagnosis: Mild coronary artery disease. Plan: To continue medical therapy. Medical Problem List: Acute coronary syndrome status post heart catheterization showing 40% ostial ramus, LAD normal, RCA normal, circumflex normal Acute on Chronic systolic congestive heart failure with ejection fraction around the 25% Atrial fibrillation, paroxysmal on chronic anti coagulation therapy Diabetes mellitus type 2, insulin requiring, with hyperglycemia Essential hypertension, stable Chronic kidney disease stage 3 Mixed hyperlipidemia HX of defibrillator pacemaker placement Recent supraventricular tachycardia Brief History of Present Illness: 74-year-old female with known nonischemic cardiomyopathy, systolic CHF with ejection fraction around 25%, atrial fibrillation on chronic anti coagulation therapy, hypertension, CAD and hyperlipidemia. Patient was admitted due to tachycardia and chest pain. Patient found to have elevated troponin. Acute coronary syndrome was suspected. Hospital Course: Patient presented with chest pain secondary to Acute Coronary Syndrome. Patient was seen in dilated by Cardiology. Cardiology recommended further evaluation with cardiac stress test due to her multiple medical problems including acute on chronic systolic CHF, atrial fibrillation on chronic anti coagulation therapy, diabetes mellitus, hypertension, chronic renal disease stage III, and mixed hyperlipidemia. Patient also had history of defibrillator pacemaker. Cardiac stress test showed small focus of stress ischemia to the anterior septal wall. Heart catheterization was then recommended. Heart catheterization was done. 40% ostial ramus, LAD normal, RCA normal, and circumflex normal were identified. No need for further intervention. Medical therapy was recommended. Patient did well during the course of her stay. At discharge she will continue with her current medications of Lipitor 40 mg daily, digoxin 0.125 mg daily, Lasix 40 mg as directed, metoprolol XL 25 mg 1 pill twice daily, Xarelto 15 mg daily, and E ntresto 24/26 mg 1 pill twice daily. Patient may follow up with cardiology locally or she can follow up at [facility] within 1 week. As mentioned above patient also presented with acute on chronic systolic CHF. This has remained stable. Prior ejection fraction around 25-30%. At discharge she will continue with her current regimen of Lasix. Recommend to continue a 1500 cc per day fluid restriction and low-salt diet. Recommend to monitor her weight daily. If her weight increases by more than 5 lb she is to contact her PCP or cardiology for further recommendation. Patient with hyperlipidemia. At discharge she will continue with Lipitor 40 mg daily. Patient has Atrial fibrillation on chronic anticoagulation. At discharge, She will continue with Xarelto 15 mg daily, digoxin 0.125 mg daily and metoprolol ER 25 mg 1 pill twice daily. Patient with diabetes mellitus type 2. At discharge she will continue with her insulin regimen of NPH and rapid acting insulin. Recommend to maintain blood sugar less 140 fasting and less than 200 after meals. Further adjustment can be done by her PCP. Patient with history of pacemaker defibrillator. Recommend follow up with cardiology as directed. Patient also takes Dilantin 200 mg at bedtime and 100 mg daily. At discharge she will continue with his medication. Vital Signs/Physical Exam: Temp Pulse Resp BP Pulse Ox 97.1 F 74 20 146/58 H 97 07/23/19 08:00 07/23/19 09:11 07/23/19 08:00 07/23/19 09:11 07/23/19 08:00 General: Alert, In no apparent distress, Oriented x3, Cooperative HEENT: Atraumatic Neck: Supple Respiratory: Clear to auscultation bilaterally, Normal air movement Cardiovascular: Normal pulses, Regular rate/rhythm Gastrointestinal: Normal bowel sounds, Soft and benign, Non-distended, No tenderness, No masses, No rebound, No guarding Musculoskeletal: No erythema, No tenderness, No warmth Integumentary: No tenderness/swelling, No erythema, No warmth, No cyanosis Neurological: Normal speech, Normal strength at 5/5 x4 extr, Normal tone, Normal affect Laboratory Data at Discharge: WBC 8.8 K/uL (4.3-10.9) 07/23/19 05:11 Hgb 10.1 g/dL (12.0-15.0) L 07/23/19 05:11 Hct 30.1 % (36.0-45.0) L 07/23/19 05:11 Plt Count 197 K/uL (152-406) 07/23/19 05:11 PT 15.9 SECONDS (9.5-12.5) H 07/18/19 23:21 INR 1.36 07/18/19 23:21 Sodium 141 mmol/L (136-145) 07/23/19 05:11 Potassium 4.6 mmol/L (3.5-5.1) 07/23/19 05:11 BUN 41 mg/dL (7-18) H 07/23/19 05:11 Creatinine 1.49 mg/dL (0.55-1.3) H 07/23/19 05:11 Glucose 233 mg/dL (74-106) H 07/23/19 05:11 Magnesium 1.8 mg/dL (1.8-2.4) 07/18/19 23:21 Total Bilirubin 0.1 mg/dL (0.2-1.0) L 07/18/19 23:21 AST 21 U/L (15-37) 07/18/19 23:21 ALT 23 U/L (12-78) 07/18/19 23:21 Alkaline Phosphatase 139 U/L (45-117) H 07/18/19 23:21 Troponin I 0.11 ng/mL (0.0-0.045) H 07/19/19 05:58 Home Medications: Atorvastatin Calcium 40 mg PO BEDTIME 08/27/15 PHENYTOIN ER Cap [Dilantin ER Cap*] 200 mg PO BEDTIME 08/27/15 Rivaroxaban [Xarelto*] 15 mg PO DAILY 08/27/15 Furosemide [Lasix*] 40 mg PO SEECOM 04/07/16 Digoxin [Lanoxin*] 0.125 mg PO DAILY 07/16/19 Insulin -Regular Human [Novolin -R*] 0 unit SQ SEECOM 07/16/19 Insulin NPH Human Isophane [Novolin N] 25 unit SQ DAILY 07/16/19 Metoprolol Succinate 25 mg PO BID 07/16/19 Phenytoin Sodium Extended [Dilantin] 100 mg PO DAILY 07/16/19 Sacubitril/Valsartan [Entresto 24 mg-26 mg Tablet] 0.5 tab PO BID 07/16/19 Patient Discharge Instructions: Patient presented with chest pain secondary to Acute Coronary Syndrome. Patient was seen in dilated by Cardiology. Cardiology recommended further evaluation with cardiac stress test due to her multiple medical problems including acute on chronic systolic CHF, atrial fibrillation on chronic anti coagulation therapy, diabetes mellitus, hypertension, chronic renal disease stage III, and mixed hyperlipidemia. Patient also had history of defibrillator pacemaker. Cardiac stress test showed small focus of stress ischemia to the anterior septal wall. Heart catheterization was then recommended. Heart catheterization was done. 40% ostial ramus, LAD normal, RCA normal, and circumflex normal were identified. No need for further intervention. Medical therapy was recommended. Patient did well during the course of her stay. At discharge she will continue with her current medications of Lipitor 40 mg daily, digoxin 0.125 mg daily, Lasix 40 mg as directed, metoprolol XL 25 mg 1 pill twice daily, Xarelto 15 mg daily, and Entresto 24/26 mg 1 pill twice daily. Patient may follow up with cardiology locally or she can follow up at [facility] within 1 week. As mentioned above patient also presented with acute on chronic systolic CHF. This has remained stable. Prior ejection fraction around 25-30%. At discharge she will continue with her current regimen of Lasix. Recommend to continue a 1500 cc per day fluid restriction and low-salt diet. Recommend to monitor her weight daily. If her weight increases by more than 5 lb she is to contact her PCP or cardiology for further recommendation. Patient with hyperlipidemia. At discharge she will continue with Lipitor 40 mg daily. Patient has Atrial fibrillation on chronic anticoagulation. At discharge, She will continue with Xarelto 15 mg daily, digoxin 0.125 mg daily and metoprolol ER 25 mg 1 pill twice daily. Patient with diabetes mellitus type 2. At discharge she will continue with her insulin regimen of NPH and rapid acting insulin. Recommend to maintain blood sugar less 140 fasting and less than 200 after meals. Further adjustment can be done by her PCP. Patient with history of pacemaker defibrillator. Recommend follow up with cardiology as directed. Patient also takes Dilantin 200 mg at bedtime and 100 mg daily. At discharge she will continue with his medication. Diet: Renal Activity: Fall precautions Time spent managing pt's care (in minutes): 55
--- NOTE | 2019-07-23 13:37 | PN ---
Date of Progress Note: 07/23/2019 Subjective: Patient was admitted with unstable angina . Patient has status post cardiac cath. Yesterday, patient had acute kidney injury, over volume. Objective: Vital Signs: When I saw the patient, blood pressure 146/58, pulse of 74, afebrile. Patient had good urine output, voiding. Patient was on IV fluid after catheterization. Chest: Clear to auscultation. Heart: S1, S2. Regular. Abdomen: Soft, nontender. Extremities: No edema. Laboratory Data: WBC 8.8, H and H 10.1/30.1, platelets 197. Sodium 141, potassium 4.6, bicarb 24, BUN 41, creatinine 1.4, GFR of 34, calcium 7.9. Current Medications: The patient on include: 1. Atorvastatin. 2. Digoxin. 3. Entresto. 4. Metoprolol. 5. Dilantin. 6. Lasix. 7. Insulin. Assessment And Plan: 1. Acute kidney injury secondary to cardiorenal, recover plateau. Patient had exposure to contrast yesterday. We will monitor. Patient is going to need chemistry in 2 weeks. We indicated the patient followup in 2 weeks for the labs. 2. Hypertension, controlled optimal. Continue current medication. 3. Congestive heart failure, advanced. I am going to go ahead and resume her Lasix and we will follow up. 4. Coronary artery disease, status post cardiac catheterization. No percutaneous transluminal coronary angioplasty. We will follow up with primary. Patient cleared from the renal standpoint for discharge planning. Follow up in 2 weeks. IFEANYI Voice ID: [id number] Report ID: [id number] MTDD
[2019-07-23 14:29] VITALS: BP 152/67; TEMP 97
--- NOTE | 2019-07-23 17:16 | PN ---
Date of Progress Note: 07/23/2019 Ms. Simpson had a heart catheterization yesterday because of elevated troponin, supraventricular tachyc ardia, has had a history of congestive heart failure in the past, has a defibrillator. Her catheteri zation showed minimal coronary artery disease with a 40% ostial ramus stenosis. The rest of her vess els were normal. Overnight, she did well. She has no chest pain, no further arrhythmia. She is not having any shortness of breath. Her vital signs stable. She was afebrile. She did complain of rico e abdominal and suprapubic pain. Examination there showed no evidence of hematoma. She had good fem oral pulses and good dorsalis pedis and posterior tibial pulses on the right. Her abdomen was soft a nd nontender. I am comfortable with Ms. Simpson going home today and she will follow up either with me or with Dr. Heath. She was going to make that decision. For now, she gets her defibrillator checked in [place] and I recommended that she gets it done here if she wants to avoid a long drive and she wa s going to decide on that. Continue her home regimen. PRAVEEN/CAMERON Voice ID: [id number] Report ID: [id number]
== END 2019-07-23 15:32 | disposition home or self-care (01) | DRG 286 ==
LOC: ER 22:59 → OBSVTOIN 07-19 01:38 → INTOOBSV 07-19 01:38 → ERHOLD 07-19 01:38 → 2ND 07-19 02:20 → OBSVTOIN 07-21 11:08
PROVIDERS: ADMIT Internal Medicine; ATTEND Family Medicine
PROC: 4A12XM4 Monitoring of Cardiac Stress, External Approach (ICD-10-PCS; 2019-07-21)
PROC: 4A023N7 Measurement of Cardiac Sampling and Pressure, Left Heart, Percutaneous Approach (ICD-10-PCS; principal; 2019-07-22)
PROC: B2111ZZ Fluoroscopy of Multiple Coronary Arteries using Low Osmolar Contrast (ICD-10-PCS; 2019-07-22)
DX: I24.9 Acute ischemic heart disease, unspecified (principal); I50.23 Acute on chronic systolic (congestive) heart failure; I13.0 Hypertensive heart and chronic kidney disease with heart failure and stage 1 through stage 4 chronic kidney disease, or unspecified chronic kidney disease; N17.9 Acute kidney failure, unspecified; I25.110 Atherosclerotic heart disease of native coronary artery with unstable angina pectoris; Z79.01 Long term (current) use of anticoagulants; Z79.899 Other long term (current) drug therapy; Z79.4 Long term (current) use of insulin; Z90.49 Acquired absence of other specified parts of digestive tract; E66.01 Morbid (severe) obesity due to excess calories; Z68.36 Body mass index [BMI] 36.0-36.9, adult; Z95.810 Presence of automatic (implantable) cardiac defibrillator; E11.22 Type 2 diabetes mellitus with diabetic chronic kidney disease; R79.89 Other specified abnormal findings of blood chemistry; E78.2 Mixed hyperlipidemia; N18.3 Chronic kidney disease, stage 3 (moderate); E11.40 Type 2 diabetes mellitus with diabetic neuropathy, unspecified; I25.2 Old myocardial infarction; I48.0 Paroxysmal atrial fibrillation; E11.65 Type 2 diabetes mellitus with hyperglycemia
CPT/HCPCS: 36415; 71045; 78452; 80048; 80076; 82947; 83735; 83880; 84484; 85025; 85610; 93005; 93017; 93454; 94760; 99285; A9500; C1760; C1893; G0378; J0583; J1815; J2250; J2405; J2785; J3010; J7030

== ENCOUNTER 2019-11-08 13:36 | Emergency (ER) | payer MEDICARE ==
--- OUTSIDE RECORDS SUMMARY | 2019-11-08 13:38 | XMS REPORT | Continuity of Care Document ---
:1945 Author Organization [facility] t Address [address] [place] [address] Care Team Providers Name Role Phone Shon SQUIRES Attending Clinician Lauryn Moscoso MD Attending Clinician Problems This patient has no known problems. Allergies, Adverse Reactions, Alerts This patient has no known allergies or adverse reactions. Medications This patient has no known medications. Procedures This patient has no known procedures. Encounters Start End Encounter Admission Attending Care Care Encounter Source Date/Time Date/Time Type Type Clinicians Facility Department ID 2019-11-05 2019-11-05 [facility] [id number] 07:42:01 23:59:00 Encounter [facility] [id number] Clear [id number] Moore [id number] [facility] 801 (CLC) 2019-10-29 2019-10-29 [id number] 00:00:00 00:00:00 Outreach [facility] [id number] [place] [id number] [facility] [phone] [address] One Results This patient has no known results.
--- OUTSIDE RECORDS SUMMARY | 2019-11-08 13:39 | XMS REPORT | Summary of Care ---
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, with long-term current use of insulin (Primary Dx); Endocrinology- [facility] Dyslipid emia; [facility] Essential hypertension [address] [place] [address], [address] [address] [place], [place] [phone] [address] [phone] Allergies No Known Allergiesdocumented as of this encounter (statuses as of 08/13/2019) Medications Medication Sig Dispensed Refills Start Date End Date Status Blood-Glucose Meter Check glucose 1 Each 0 07/03/2017 Active Kit once daily before breakfast; Diagnosis code E11.9 blood sugar Check glucose 50 Strip 11 07/03/2017 Act fernando diagnostic (BLOOD once daily GLUCOSE TEST) strip before breakfast; Diagnosis code E11.9 Lancets Misc Check glucose 50 Each 11 07/03/2017 Ac tive once daily before breakfast; Diagnosis code E11.9 insulin regular inject under 0 Active human (NOVOLIN R the skin. Per REGULAR U-100 Sliding scale INSULN) 100 unit/mL injection traMADol 50 mg Take 1 tablet 20 tablet 0 11/22/2018 Active tabletIndications: by mouth every Injury of head, 6 (six) hours initial encounter as needed (pain). furosemide 40 mg Take 40 mg by 15 tablet 0 12/30/2018 Active tabletIndications: mouth as Non-ischemic needed cardiomyopathy (worsening swelling or SOB). atorvastatin 40 mg TAKE 1 TABLET 90 tablet 1 02/28/2019 Active tabletIndications: BY MOUTH Other EVERYDAY AT hyperlipidemia BEDTIME sacubitril-valsarta Take 1 tablet 60 tablet 2 05/20/2019 Active n (ENTRESTO) 24-26 by mouth 2 mg (two) times tabletIndications: daily. Chronic systolic heart failure PHENYTOIN EXTENDED TAKE 1 CAPSULE 270 capsule 1 05/29/2019 Active 100 mg BY MOUTH EVERY capsuleIndications: MORNING AND 2 Seizure disorder CAPSULES IN THE EVENING DIGOXIN 125 mcg TAKE 1 TABLET 30 tablet 5 08/07/2019 Active (0.125 mg) BY MOUTH EVERY tabletIndications: DAY Chronic combined systolic and diastolic heart failure metoprolol Take 1 tablet 270 tablet 1 08/06/2019 Act fernando succinate XL 50 mg by mouth 2 24 hr (two) times tabletIndications: daily. Essential hypertension XARELTO 15 mg TAKE 1 TABLET 30 tablet 5 08/07/2019 A ctive tabletIndications: BY MOUTH EVERY Atrial DAY fibrillation, unspecified type insulin NPH inject 28 30 mL 3 08/13/2019 Active (NOVOLIN N NPH Units under U-100 INSULIN) 100 the skin every unit/mL morning and injectionIndication evening. s: Type 2 diabetes mellitus with stage 4 chronic kidney disease, with long-term current use of insulin insulin NPH human inject under 0 08/13/19 2 Discontinued isophane (NOVOLIN N the skin. 20 0 SC) units inj SC qAM, 26 units qPM documented as of this encounter (statuses as of 08/13/2019) Active Problems Problem Noted Date Spontaneous ecchymoses [...] as of this encounter (statuses as of 08/13/2019) Immunizations Name Administration Dates Next Due HEP [...] been in contact with No / Unsure 08/12/2019 10:12 AM CDT someone who was confirmed or suspected to have Coronavirus / COVID-19? documented as of this encounter Last Filed Vital Signs Vital Sign Reading Time Taken Comments Blood Pressure 149/69 08/13/2019 4:25 PM CDT Pulse 75 08/13/2019 4:25 PM CDT Temperature - - Respiratory Rate 16 08/13/2019 4:25 PM CDT Oxygen Saturation - - Inhaled Oxygen Concentration - - Weight 81.6 kg (180 lb) 08/13/2019 4:25 PM CDT Height 152.4 cm (5') 08/13/2019 4:25 PM CDT Body Mass Index 35.15 08/13/2019 4:25 PM CDT documented in this encounter Patient Instructions Patient InstructionsLevi Castle MD - 08/13/2019 4:30 PM CDTIncrease insulin N to 28units in morning ( 8am) and at 8 PM Inject insulin R before meal three times daily as below: If sugar is under 100 , Do not Inject insulin R IF sugar is 101-150, take 5 units If sugar is 151-200, take 8 units If sugar is 201-250, take10 units If sugar is 251-300, take 12 units If sugar is over 300, take 14 units documented in this encounter Progress Notes Levi Castle MD - 08/13/2019 4:30 PM CDT chief complaint: Type 2 diabetes mellitus- follow up HPI Patient is a 74 year old /White female who is here today for Diabetes Mellitus Type 2. Patient's diabetes is complicated by atherogenic diet, hyperlipidemia, macrovascular complications: Congestive Heart Failure s/p AICD, nephropathy: with chronic kidney disease stage 3, neuropathy: Peripheral and lower extremity, obesity and sedentary lifestyle. Type 2 diabetes mellitus was diagnosed at age 51 and A1c has been fairly controlled at 7s Patient accompanied by her daughter today. HUI was in 03/2019 with A1C at 7.3 . Patient was advised to increase diabetes regimen: Insulin N 18units QAM and10 units QPM, insulin R SSI 5-14 unit tidac. Which she further increased to Novolin N 25 units BID. Patient usually checks blood glucoses 2-3 times a day. Patient has brought in the blood sugars to be reviewed today. Average blood sugar:at breakfast 99-239, at lunch 131-370, one 67 and at supper 107-363 The patient is having isolated problems with hypoglycemia due to over bolusing. Patient is semicompliant with medication regimen. She self adjust SSI dose at time. Patient is better compliant With and lost 8lbs. She is unable exercise due to SOB followed by cardiology H/o severe CHF: HFrEF (NICM, EF 20-25% per echo 03/05/17, NYHA functional class III, Stage C Atrial fibrillation: TFT's normal CKD Stage 3-4 : GFR 29-42, Follow up with Dr Shannon Dyslipidemia: Takes Lipitor 40 mg DIABETIC HEALTH MAINTENANCE Last Ophthalmology visit was 07/2018 Patient on MARÍA/ARB therapy - Yes ( cardiology) Patient on ASA therapy - No. Patient on Statin/Fibrate therapy - Yes. Last flu shot: Yes Patient instructed about daily feet exams, last sensation exam was 12/2018 Patient has received Nutrition/Diet/Diabetes Education on Yes. HISTORY Past Medical History: Diagnosis Date A-fib Abnormal [...] (pulmonary embolism) 2010 Spondylolisthesis, lumbar region 02/25/2018 Past Surgical History: Procedure Laterality Date APPENDECTOMY CHOLECYSTECTOMY COLONOSCOPY + polyps, Dr. Montoya ESOPHAGEAL DILATATION ESOPHAGOGASTRODUODENOSCOPY 07/20/2017 Dr. 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 Neck: denies pain, denies swollen glands Cardiovascular: denies chest pain , denies irregular pulse and denies palpitations. Respiratory: + dyspnea on exertion and + shortness of breath. Gastrointestinal: denies abdominal pain, denies constipation and denies diarrhea. Genitourinary: denies burning and denies dysuria. Musculoskeletal: denies back pain, denies muscle pain and denies weakness. Skin: denies dry skin and denies hair changes. Neuro: denies numbness , denies tingling and denies tremor. Psych: negative. Endocrine: denies goiter, denies hair loss, denies intolerance to cold, denies intolerance to heat, denies polydipsia, denies polyphagia and denies polyuria. PHYSICAL EXAM POCT GLU (mg/dL) Date Value 12/09/2018 200 (H) CREATININE Date Value 06/30/2019 1.56 mg/dL (H) 10/09/2003 1.12 MG/DL CHOL Date Value 06/17/2018 149 mg/dL 10/04/2003 225 MG/DL (H) HDL CHOL (MG/DL) Date Value 10/04/2003 75 HDL (mg/dL) Date Value 06/17/2018 72 LDL CHOL Date Value 06/17/2018 58 mg/dL 10/04/2003 99 MG/DL TRIG Date Value 06/17/2018 94 mg/dL 10/04/2003 257 MG/DL (H) MICROAL/CR (mg/g of creatinine) Date Value 04/09/2019 1,466 (H) POCT HBA1C (%) Date Value 08/13/2019 7.7 04/09/2019 7.3 HGB A1C Date Value 06/26/2018 7.0 % NGSP (H) 10/09/2003 11.2 % (H) BP (!) 149/69 (BP Location: Left arm, Patient Position: Sitting, BP CUFF SIZE: Adult Large) | Pulse75 | Resp 16 | Ht 5' (1.524 m) | Wt 180 lb (81.6 kg) | BMI 35.15 kg/m General: alert, oriented times three, no apparent distress, appearing age appropriate. Skin: skin color and turgor are normal Head: normocephalic, no masses, lesions, tenderness or abnormalities. Eyes: anicteric sclera, pupils are equally round and reactive to light. Neck: +acanthosis nigricans Thyroid: normal size and consistency to palaption Lungs: good diaphragmatic excursion, lungs clear to auscultation bilaterally. Heart: regular rate and rhythm, no murmurs, gallops or rubs. Abdomen: abdomen soft, non-tender, normal active bowel sounds, + obese. Neuro: unremarkable without focal findings. Extremities/Musculoskeletal: no cyanosis, +1 plus pitting edema . ASSESSMENT/PLAN 1. Type 2 diabetes mellitus with stage 4 chronic kidney disease, with long-term current use of insulin -A1C (target=6-7%): 7.0 (06/07) --->7.3(12/07) -->7.3(04/10)--->7.7(08/08) -glucose range: Hypoglycemia after over bolusing -complication: neuropathynephropathy macrovascular: CHF -medication limitation: Brand insulins, Tradjenta- cost, she deferred GLP-1. Hold off metformin dueto hx of low eGFR -diet: better compliant -exercise: limited by CHF status Plan -reinterated to check glucose TID alternating fasting and 2 hours post meals -urged compliance with diet/exercise - POCT HEMOGLOBIN A1C TEST - insulin NPH (NOVOLIN N NPH U-100 INSULIN) 100 unit/mL injection; inject 28 Units under the skin every morning and evening. Dispense: 30 mL; Refill: 3 Patient Instructions Increase insulin N to 28units in morning ( 8am) and at 8 PM Inject insulin R before meal three times daily as below: If sugar is under 100 , Do not Inject insulin R IF sugar is 101-150, take 5 units If sugar is 151-200, take 8 units If sugar is 201-250, take10 units If sugar is 251-300, take 12 units If sugar is over 300, take 14 units 2. Dyslipidemia Comment: at goal Plan: Continue Lipitor 40 mg 3. Essential hypertension BP in clinic was at target Plan managed by cardiology documented in this encounter Plan of Treatment Date Type Specialty Care Team Description 08/15/2019 Nurse Visit Cardiology Visit, Adc Nurse 09/08/2019 Office Visit Cardiology Sriram Heath M D [address] [place] [address] [place] [address] 09/16/2019 Office Visit Cardiology Silverio Menendez MD [address] [place] [phone] 11/19/2019 Office Visit Endocrinology Diabetes & Duncan Castle MD Metabolism [address] [place] [address] [phone] Health Maintenance Due Date Last Done Comments DTaP,Tdap,and Td Vaccines (1 - 1957 Tdap) Zoster Recombinant Vaccine 1996 (SHINGRIX) (1 of 2) Medicare Wellness Visit 2011 Osteoporosis Screening 2011 PNEUMOCOCCAL VACCINES 65+ (2 of 2 02/20/2016 02/19/2015, - PPSV23) Breast Cancer Screening 07/09/2019 07/08/2018 (MAMMOGRAM) EYE EXAM 08/06/2019 08/05/2018, 06/22/2017, 06/22/2017, Additional history exists HgA1C 10/08/2019 04/09/2019, 12/04/2018, 06/26/2018, Additional history exists INFLUENZA VACCINE (Season Ended) 2019 FOOT EXAM 01/07/2020 01/06/2019, 01/06/2019, 06/05/2018, Additional history exists Depression Screening 01/15/2020 01/14/2019 COLONOSCOPY 02/20/2020 02/19/2010 (Previously completed) URINE MICROALBUMIN 04/09/2020 04/09/2019, 06/17/2018, 06/21/2017 CREATININE (SERUM) 06/29/2020 06/30/2019, 01/19/2019, 01/15/2019, Additional history exists LDL-C 07/17/2020 07/18/2019, 06/17/2018, 06/21/2017, Additional history exists HEPATITIS C (HCV) SCREEN Completed 06/21/2017 documented as of this encounter Implants Implanted Type Area Chemistry Technical Officer Device Shelf Model / Identifier Expiration Serial / Date Lot Defibrillator DEFIBRILLATOR Medtronic DT [id number] / [id number] / documented as of this encounter Procedures Procedure Name Priority Date/Time Associated Diagnosis Comme nts POCT HEMOGLOBIN A1C Routine 08/13/2019 Type 2 diabetes Resul ts for this TEST mellitus with stage 4 proced ure are in the chronic kidney results secti on. disease, with long-term current use of insulin documented in this encounter Results POCT HEMOGLOBIN A1C TEST (08/13/2019) Pathologist Sig nature POCT HBA1C 7.7 4 - 6 % Specimen Blood - CAPILLARY documented in this encounter Visit Diagnoses Diagnosis Type 2 diabetes mellitus with stage 4 ch ronic kidney disease, with long-term current use of insulin - Primary Dyslipidemia Other and unspecified hyperlipidemia Essential hypertension Unspecified essential hypertension documented in this encounter Insurance Payer Benefit Plan / Subscriber ID Effective Phone Address T ype Group Dates [facility] [id number] 2019-Nuria javier [facility] HEALTHCARE - MEDICARE nt HMO MANAGED MEDICARE ADVANTAGE (Home) [place] [address] documented as of this encounter Advance Directives Name Relationship Healthcare Agent Communication Relationship Marcella Schmitz Child Primary healthcare agent [phone] (Mobile) nadia [email or web address]
--- OUTSIDE RECORDS SUMMARY | 2019-11-08 13:39 | XMS REPORT | Summary of Care ---
:1945 Author Organization [facility] Address [address] [place], [place] [address] Care Team Providers Name Role Phone Ortega Dorsey MD Patient Observation Assistant [phone] Lauryn Moscoso MD Primary Care Provider Lauren Dickinson DO Helicopter Crew Chief Reason for Visit Reason Comments Refill Request Encounter Details Date Type Department Care Team Description 08/03/2019 Refill [facility] Kylah Mart MD Refill Request - [address] [place] [address] [place] [address] [phone] Allergies No Known Allergiesdocumented as of this encounter (statuses as of 08/15/2019) Medications Medication Sig Dispensed Refills Start Date [...] before breakfast; Diagnosis code E11.9 insulin regular human inject under 0 Active (NOVOLIN R REGULAR the skin. Per U-100 INSULN) 100 Sliding scale unit/mL injection traMADol 50 mg Take 1 tablet by 20 tablet 0 11/22/2018 Active tabletIndications: mouth every 6 Injury of head, (six) hours as initial encounter needed (pain). furosemide 40 mg Take 40 mg by 15 tablet 0 12/30/2018 Active tabletIndications: mouth as needed Non-ischemic (worsening cardiomyopathy swelling or SOB). atorvastatin 40 mg TAKE 1 TABLET BY 90 tablet 1 02/28/2019 Active tabletIndications: MOUTH EVERYDAY Other hyperlipidemia AT BEDTIME sacubitril-valsartan Take 1 tablet by 60 tablet 2 05/20/2019 Active (ENTRESTO) 24-26 mg mouth 2 (two) tabletIndications: times daily. Chronic systolic heart failure PHENYTOIN EXTENDED 100 TAKE 1 CAPSULE 270 capsule 1 05/29/2019 Active mg capsuleIndications: BY MOUTH EVERY Seizure disorder MORNING AND 2 CAPSULES IN THE EVENING METOPROLOL SUCCINATE TAKE 1 TABLET BY 60 tablet 6 08/15/2019 Active XL 25 mg 24 hr MOUTH TWICE A tabletIndications: DAY Essential hypertension documented as of this encounter (statuses as of 08/15/2019) Active Problems Problem Noted Date Spontaneous ecchymoses [...] LFTs 06/29/2017 Multiple renal cysts 06/29/2017 Overview: [place] Type 1 per Radiologist. Hyperkalemia 06/29/2017 History [...] as of this encounter (statuses as of 08/15/2019) Immunizations Name Administration Dates Next Due HEP [...] been in contact with No / Unsure 08/15/2019 10:09 AM CDT someone who was confirmed or suspected to have Coronavirus / COVID-19? documented as of this encounter Last Filed Vital Signs Not on filedocumented in this encounter Plan of Treatment Date Type Specialty Care Team Description 09/08/2019 Office Visit Cardiology Sriram Heath M D [address] [place], [place] [address] [phone] 09/16/2019 Office Visit Cardiology Silverio Menendez MD [address] [place] [address]. [place] [phone] 11/14/2019 Nurse Visit Cardiology Visit, Luís Nurse 11/19/2019 Office Visit Endocrinology Diabetes & Duncan Castle MD [address] [address] [phone] Health Maintenance Due Date Last Done Comments DTaP,Tdap,and Td Vaccines ( - 1957 Tdap) Zoster Recombinant Vaccine 1996 (SHINGRIX) (1 of 2) Medicare Wellness Visit 2011 Osteoporosis Screening 2011 PNEUMOCOCCAL VACCINES 65+ (2 of 2 02/20/2016 02/19/2015, - PPSV23) Breast Cancer Screening 07/09/2019 07/08/2018 (MAMMOGRAM) EYE EXAM 08/06/2019 08/05/2018, 06/22/2017, 06/22/2017, Additional history exists INFLUENZA VACCINE (Season Ended) 2019 FOOT EXAM 01/07/2020 01/06/2019, 01/06/2019, 06/05/2018, Additional history exists Depression Screening 01/15/2020 01/14/2019 HgA1C 02/12/2020 08/13/2019, 04/09/2019, 12/04/2018, Additional history exists COLONOSCOPY 02/20/2020 02/19/2010 (Previously completed) URINE MICROALBUMIN 04/09/2020 04/09/2019, 06/17/2018, 06/21/2017 CREATININE (SERUM) 06/29/2020 06/30/2019, 01/19/2019, 01/15/2019, Additional history exists LDL-C 07/17/2020 07/18/2019, 06/17/2018, 06/21/2017, Additional history exists HEPATITIS C (HCV) SCREEN Completed 06/21/2017 documented as of this encounter Implants Implanted Type Area Tin Whiz Machine Operator Device Shelf Model / Identifier Expiration Serial / Date Lot Defibrillator DEFIBRILLATOR Medtronic DT [id number] / [id number] / documented as of this encounter Results Not on filedocumented in this encounter Visit Diagnoses Diagnosis Essential hypertension Unspecified essential hypertension documented in this encounter Insurance Payer Benefit Plan / Subscriber ID Effective Phone Address T ype Group Dates [facility] [id number] 2019-Nuria javier Adv HEALTHCARE - MEDICARE nt HMO MANAGED MEDICARE ADVANTAGE documented as of this encounter Advance Directives Name Relationship Healthcare Agent Communication Relationship Marcella Schmitz Child Primary healthcare agent nadia [email or web address]
--- OUTSIDE RECORDS SUMMARY | 2019-11-08 13:39 | XMS REPORT | Summary of Care ---
:1945 Author Organization [facility] Address [address] [place] [address] Care Team Providers Name Role Phone Ortega Dorsey MD Fruit Buying Grader [phone] Lauryn Moscoso MD Primary Care Provider Lauren Dickinson DO Orthopaedic Technologist Reason for Visit Reason Comments Follow-up Diabetes Mellitus II Encounter Details Date Type Department Care Team Description 08/13/2019 Office Visit [facility] Levi Castle MD Type 2 diabetes mellitus with stage 4 ch ronic kidney disease, with long-term current use of insulin (Primary Dx); Endocrinology- [facility] Dyslipid emia; [facility] Essential hypertension [address] [place] [address], [address] [address] [place], [place] [phone] [address] [phone] Allergies No Known Allergiesdocumented as of this [...] Office Visit Cardiology Sriram Heath M D [address] [place] [address] [place] [address] 09/16/2019 Office Visit Cardiology Silverio Menendez MD [address] [place] [phone] 11/19/2019 Office Visit Endocrinology Diabetes & Duncan Castle MD Metabolism [address] [place] [address] [phone] Health Maintenance Due Date Last Done Comments [...] of this encounter Implants Implanted Type Area Electronic Prepress Technician Device Shelf Model / Identifier Expiration Serial / Date Lot Defibrillator DEFIBRILLATOR Medtronic DT [id number] / [id number] / documented as of this encounter Procedures [...] T ype Group Dates [facility] [id number] 2019-Nuria javier [facility] HEALTHCARE - MEDICARE nt HMO MANAGED MEDICARE ADVANTAGE (Home) [place] [address] documented as of this encounter Advance Directives Name Relationship Healthcare Agent Communication Relationship Marcella Schmitz Child Primary healthcare agent [phone] (Mobile) nadia [email or web address]
--- OUTSIDE RECORDS SUMMARY | 2019-11-08 13:40 | XMS REPORT | Summary of Care ---
:[address] [facility] Address [address] [place] [address] Care Team Providers Name Role Phone Ortega Dorsey MD Embedded Systems Engineer [phone] Lauryn Moscoso MD Primary Care Provider Lauren Dickinson DO Electronic Sales And Service Technician Reason for Visit Reason Comments LAB Encounter Details Date Type Department Care Team Description 08/15/2019 Stakes Player Visit [facility] Dago Lawrence MD [address] [facility] [address] [place] [address] Chronic combined systolic and diastolic heart failure; Professional Office 2, Adc Lab PAF (paroxysmal atrial fibrillation); [facility] Professional Office Building [address] [place] [address] , [address] [place] [address] Allergies No Known Allergiesdocumented as [...] MOUTH TWICE A tabletIndications: DAY Essential hypertension DIGOXIN 125 mcg (0.125 TAKE 1 TABLET BY 30 tablet 5 08/07/2019 Active mg) tabletIndications: MOUTH EVERY DAY Chronic combined systolic and diastolic heart failure metoprolol succinate Take 1 tablet by 270 tablet 1 08/06/2019 Active XL 50 mg 24 hr mouth 2 (two) tabletIndications: times daily. Essential hypertension XARELTO 15 mg TAKE 1 TABLET BY 30 tablet 5 08/07/2019 Active tabletIndications: MOUTH EVERY DAY Atrial fibrillation, unspecified type insulin NPH (NOVOLIN N inject 28 Units 30 mL 3 08/13/2019 Active NPH U-100 INSULIN) 100 under the skin unit/mL every morning injectionIndications: and evening. Type 2 diabetes mellitus with stage 4 chronic kidney disease, with long-term current use of insulin documented as of this encounter (statuses as [...] Visit Cardiology Sriram Heath M D 146 [facility] [address] [place] [address] [phone] 09/16/2019 Office Visit Cardiology Silverio Menendez MD [address] [place], [place] [address] [place] [phone] 11/14/2019 Nurse Visit Cardiology Visit, Adc Nurse 11/19/2019 Office Visit Endocrinology Diabetes & Duncan Castle MD Metabolism [address] [place], [place] [phone] Health Maintenance Due Date Last Done Comments [...] of this encounter Implants Implanted Type Area Brush Loader And Handle Attacher Device Shelf Model / Identifier Expiration Serial / Date Lot Defibrillator DEFIBRILLATOR Medtronic DT [id number] / [id number] / documented as of this encounter Procedures Procedure Name Priority Date/Time Associated Diagnosis Comme nts N-TERMINAL PRO-BNP [facility] 08/15/2019 10:17 Chronic combined R esults for this AM CDT systolic and procedure are i n diastolic heart the results failure section. PAF (paroxysmal atrial fibrillat ion) Essential hypertension PROFILE / HEMOGRAM JACQUI 08/15/2019 10:17 Chronic combined R esults for this AM CDT systolic and procedure are i n diastolic heart the results failure section. PAF (paroxysmal atrial fibrillat ion) Essential hypertension DIGOXIN JACQUI 08/15/2019 10:17 Chronic combined Results for this AM CDT systolic and procedure are i n diastolic heart the results failure section. PAF (paroxysmal atrial fibrillat ion) Essential hypertension COMP. METABOLIC JACQUI 08/15/2019 10:17 Chronic combined Resu lts for this PANEL (42881) AM CDT systolic and procedure are in diastolic heart the results failure section. PAF (paroxysmal atrial fibrillat ion) Essential hypertension documented in this encounter Results DIGOXIN, LEVEL (08/15/2019 10:17 AM CDT) Pathologist Sig nature DIGOXIN 0.5 (L) 0.8 - 1.6 ng/mL [facility] Specimen Blood Narrative Performed At Arrythmias: 1.5 - 2.0 ng/m L [facility] Toxic Range: Greater than or equal to 2.4 ng/mL Performing Organization Address City/State/Zipcode Phone Number [facility] CLIA: [id number], [address] [place], [place] [address] CBC W/O DIFF (08/15/2019 10:17 AM CDT) Pathologist Sig nature WBC 7.62 4.30 - 11.10 [facility] 10*3/L [facility] RBC 3.59 (L) 3.93 - 5.25 [facility] 10*6/L [facility] HGB 11.5 (L) 11.6 - 15.0 g/dL [facility] HCT 35.6 (L) 35.7 - 45.2 % [facility] MCH 32.0 25.9 - 32.8 pg [facility] MCV 99.2 (H) 80.6 - 95.5 fL [facility] MCHC 32.3 31.6 - 35.1 g/dL [facility] PLT 229 166 - 358 10*3/L [facility] MPV 13.0 (H) 9.5 - 12.9 fL [facility] RDW-CV 13.3 12.0 - 15.5 % [facility] RDW-SD 48.9 39.0 - 49.9 fL [facility] NRBC x10^3 <0.01 10*3/L [facility] NRBC/100 WBC 0.0 0.0 - 10.0 /100 [facility] WBCs [facility] IPF % [facility] Specimen Blood Performing Organization Address City/[facility] Phone Number [facility] CLIA: [id number], [address] [place], [place] [address] N-TERMINAL PRO-BNP (08/15/2019 10:17 AM CDT) Pathologist Sig nature NT-proBNP 1,170 (H) <=125 pg/mL [facility] Specimen Blood Narrative Performed At [facility] has been reported to cause a negative [facility] bias, interpret results relative to patient's use of biotin. Performing Organization Address City/[facility] Phone Number [facility] CLIA: [id number], [address] [place], [place] [address] COMP. METABOLIC PANEL ([id number]) (08/15/2019 10:17 AM CDT) NA 141 135 - 145 [facility] mmol/L [facility] K 5.2 (H) 3.5 - 5.0 [facility] mmol/L [facility] CL 106 98 - 108 mmol/L [facility] CO2 TOTAL 28 23 - 31 mmol/L [facility] AGAP 7 2 - 16 [facility] BUN 61 (H) 7 - 23 mg/dL [facility] GLUCOSE 250 (H) 70 - 110 mg/dL [facility] CREATININE 1.72 (H) 0.50 - 1.04 [facility] mg/dL [facility] TOTAL BILI 0.2 0.1 - 1.1 mg/dL [facility] CALCIUM 9.4 8.6 - 10.6 [facility] mg/dL [facility] T PROTEIN 7.6 6.3 - 8.2 g/dL [facility] ALBUMIN 4.1 3.5 - 5.0 g/dL [facility] ALK PHOS 137 (H) 34 - 122 U/L [facility] ALTv 15 5 - 35 U/L [facility] AST(SGOT) 19 13 - 40 U/L [facility] eGFR Calculation 29.1 mL/min/1.73m2 [facility] (Non-[facility]ATORY Malagasy) eGFR Calculation 35.2 mL/min/1.73m2 [facility] () [facility] Specimen Blood Narrative Performed At Association of Glomerular Filtration Rate (GFR) [facility] and Staging of Kidney Disease* + + +- + | GFR (mL/min/1.73 m2) | With Kidney Damage | Without Kidney Damage + + +- + | >90 | Stage one | Normal + + +- + | 60-89 | Stage two | Decreased GFR + + +- + | 30-59 | Stage three | Stage three + + +- + | 15-29 | Stage four | Stage four + + +- + | <15 (or dialysis) | Stage five | Stage five + + +- + *Each stage assumes the associated GFR level has been in effect for at least three months. Stages 1 to 5, with or without kidney disease, indicate chronic kidney disease. Notes: Determination of stages one and two (with eGFR >59mL/min/1.73 m2) requires estimation of kidney damage for at least three months as defined by structural or functional abnormalities of the kidney, manifested by either: Pathological abnormalities or Markers of kidney damage (including abnormalities in the composition of the blood or urine or abnormalities in imaging tests). Performing Organization Address City/State/Zipcode Phone Number [facility] CLIA: [id number], [address] [place] [address] documented in this encounter Visit Diagnoses Diagnosis Chronic combined systolic and diastolic heart failure PAF (paroxysmal atrial fibrillation) Atrial fibrillation Essential hypertension Unspecified essential hypertension documented in this encounter Insurance Payer Benefit Plan / Subscriber ID Effective Phone Address T ype Group Dates [facility] [id number] 2019-Nuria javier Adv HEALTHCARE - MEDICARE nt HMO MANAGED MEDICARE ADVANTAGE (Home) [place] [address] documented as of this encounter Advance Directives Name Relationship Healthcare Agent Communication Relationship Marcella Schmitz Child Primary healthcare agent [phone] (Mobile) nadia [email or web address]
--- OUTSIDE RECORDS SUMMARY | 2019-11-08 13:40 | XMS REPORT | Summary of Care ---
:1945 Author Organization [facility] Address [address] [place] [address] Care Team Providers Name Role Phone Ortega Dorsey MD Twister Hand [phone] Lauryn Moscoso MD Primary Care Provider Lauren Dickinson DO Zoo Keeper Reason for Visit Reason Comments NURSE VISIT Medtronic ICD check q 3 costa hs in clinic. Encounter Details Date Type Department Care Team Description 08/15/2019 Nurse Visit [facility] Dago Lawrence MD [address] [place] [phone] Chronic combined systolic and diastolic heart failure (Primary Dx); Cardiology- [place] Visit, Adc Nurse PAF (paroxysmal atrial fibrillation); [address] [place] [address], [address] [place] [address] Allergies No Known Allergiesdocumented as of [...] MORNING AND 2 CAPSULES IN THE EVENING DIGOXIN 125 mcg (0.125 TAKE 1 TABLET [...] Sign Reading Time Taken Comments Blood Pressure 96/61 08/15/2019 9:22 AM CDT Pulse 94 08/15/2019 9:22 AM CDT Temperature - - Respiratory Rate - - Oxygen Saturation - - Inhaled Oxygen Concentration - - Weight - - Height - - Body Mass Index - - documented in this encounter Patient Instructions Patient InstructionsEva Garcia RN - 08/15/2019 9:30 AM CDTPlease start taking your metoprolol around 11a instead of 8a. documented in this encounter Progress Notes Eva Garcia RN - 08/15/2019 9:30 AM CDTPatient here for ICD device check. Check done via express link by nursing staff, livestock sales representative unable to come for check-report will be emailed for review. Patient states that she is not feeling well, still having issues with high HR and low BP. Last medication adjustment was made on 08.06.2019. Report/call received from [employer]. Normal device function, no changes recommended. Frequent PVCsnoted, 3 monitored VT episodes, 13 minutes AT/AF since last report. Discussed with Dr. Lawrence (in clinic)-he came to discuss with patient regarding her BP, HR and EF. Advised that patient start taking her metoprolol around 11a instead of taking all medications at 8a. Labs ordered (CMP, CBC, digoxin level, Pro NT BNP), sent directly to lab. documented in this encounter Plan of Treatment Date Type Specialty Care Team Description 09/08/2019 Office Visit Cardiology Sriram Heath M D [address] [address] [phone] 09/16/2019 Office Visit Cardiology Silverio Menendez MD [address] [place], [place] [address]. [place] [phone] 11/14/2019 Nurse Visit Cardiology Visit, Adc Nurse 11/19/2019 Office Visit Endocrinology Diabetes & Duncan Castle MD Metabolism [address] [place] [address] [phone] Name Type Priority Associated Diagnoses Date/Ti me COMP. METABOLIC PANEL LAB JACQUI Chronic combined sy stolic 08/15/2019 10:17 AM ([id number]) and diastolic heart CDT failure PAF (paroxysmal atrial fibrillation) Essential hypertension N-TERMINAL PRO-BNP LAB [facility] Chronic combined systo lic 08/15/2019 10:17 AM and diastolic heart CDT failure PAF (paroxysmal atrial fibrillation) Essential hypertension DIGOXIN, LEVEL LAB [facility] Chronic combined systolic 08/15/2019 10:17 AM and diastolic heart CDT failure PAF (paroxysmal atrial fibrillation) Essential hypertension Name Type Priority Associated Diagnoses Order S chedule COMP. METABOLIC PANEL LAB JACQUI Chronic combined sy stolic Expected: 08/15/2019, ([id number]) and diastolic heart Expires: 09/14/2019 failure PAF (paroxysmal atrial fibrillation) Essential hypertension N-TERMINAL PRO-BNP LAB [facility] Chronic combined systo lic Expected: 08/15/2019, and diastolic heart Expires: 09/14/2019 failure PAF (paroxysmal atrial fibrillation) Essential hypertension DIGOXIN, LEVEL LAB [facility] Chronic combined systolic Expected: 08/15/2019, and diastolic heart Expires: 09/12/2019 failure PAF (paroxysmal atrial fibrillation) Essential hypertension Health Maintenance Due Date Last Done Comments [...] of this encounter Implants Implanted Type Area Principal Hardware Architect Device Shelf Model / Identifier Expiration Serial / Date Lot Defibrillator DEFIBRILLATOR Medtronic DT [id number] / [id number] / documented as of this encounter Results CBC W/O DIFF (08/15/2019 10:17 AM CDT) [facility] nature WBC 7.62 4.30 - 11.10 [facility] 10*3/L HOSPITAL [facility] RBC 3.59 (L) 3.93 - 5.25 [facility] 10*6/L [facility] HGB 11.5 (L) 11.6 - 15.0 g/dL [facility] HCT 35.6 (L) 35.7 - 45.2 % [facility] MCH 32.0 25.9 - 32.8 pg [facility] MCV 99.2 (H) 80.6 - 95.5 fL [facility] MCHC 32.3 31.6 - 35.1 g/dL [facility] PLT 229 166 - 358 10*3/L [facility] MPV 13.0 (H) 9.5 - 12.9 fL [facility] RDW-CV 13.3 12.0 - 15.5 % [facility] RDW-SD 48.9 39.0 - 49.9 fL [facility] NRBC x10^3 <0.01 10*3/L [facility] NRBC/100 WBC 0.0 0.0 - 10.0 /100 [facility] WBCs HOSPITAL LAB[facility]ORY IPF % [facility] Specimen Blood Performing Organization Address City/State/Zipcode Phone Number [facility] CLIA: [id number], [address] [place], [place] [address] documented in this encounter Visit Diagnoses Diagnosis Chronic combined systolic and diastolic heart failure - Primary PAF (paroxysmal atrial fibrillation) Atrial fibrillation Essential hypertension Unspecified essential hypertension documented in this encounter Insurance Payer Benefit Plan / Subscriber ID Effective Phone Address T ype Group Dates [facility]/AARP [id number] 2019-Nuria javier Adv HEALTHCARE - MEDICARE nt HMO MANAGED MEDICARE ADVANTAGE (Home) [place] [address] documented as of this encounter Advance Directives Name Relationship Healthcare Agent Communication Relationship Marcella Schmitz Child Primary healthcare agent [phone] (Mobile) nadia [email or web address]
--- OUTSIDE RECORDS SUMMARY | 2019-11-08 13:40 | XMS REPORT | Summary of Care ---
:1945 Author Organization [facility] Address [address] [place] [address] Care Team Providers Name Role Phone Ortega Dorsey MD Chopping Machine Operator Lauryn Moscoso MD Primary Care Provider Lauren Dickinson DO Hay Farmer Reason for Visit Reason Comments NURSE VISIT Medtronic ICD check q 3 costa hs in clinic. Encounter Details Date Type Department Care Team Description 08/15/2019 Nurse Visit [facility] Dago Lawrence MD [address] [place] [phone] Chronic combined systolic and diastolic heart failure (Primary Dx); Cardiology- [place] Visit, Adc Nurse PAF (paroxysmal atrial fibrillation); [address] [place] [address], [address] [place] [address] Allergies No Known Allergiesdocumented as [...] done via express link by nursing staff, event marketing representative unable to come for check-report will be emailed for review. Patient states that she is not feeling well, still having issues with high HR and low BP. Last medication adjustment was made on 08.06.2019. Report/call received from [employer]. Normal device function, no changes recommended. Frequent PVCsnoted, 3 monitored VT episodes, 13 minutes AT/AF since last report. Sustained SVT this morning at 176bpm-no device changes recommended. Report given to Dr. Lawrence for review. Discussed with Dr. Lawrence (in clinic)-he came [...] Office Visit Cardiology Sriram Heath M D [address] [place] [address] [phone] 09/16/2019 Office Visit Cardiology Silverio Menendez MD [address] [place] [address]. [place] [address] 11/14/2019 Nurse Visit Cardiology Visit, Luís Nurse 11/19/2019 Office Visit Endocrinology Diabetes & Duncan Castle MD Metabolism [facility] [place] [address] [phone] Name Type Priority Associated Diagnoses Date/Ti me COMP. METABOLIC PANEL LAB JACQUI Chronic combined sy stolic 08/15/2019 10:17 AM ([id number]) and diastolic heart CDT failure PAF (paroxysmal [...] JACQUI Chronic combined sy stolic Expected: 08/15/2019, ([id number]) and diastolic heart Expires: 09/14/2019 failure PAF [...] of this encounter Implants Implanted Type Area Client Service Coordinator Device Shelf Model / Identifier Expiration Serial / Date Lot Defibrillator DEFIBRILLATOR Medtronic DT [id number] / [id number] / documented as of this encounter Results CBC W/O DIFF (08/15/2019 10:17 AM CDT) [facility] nature WBC 7.62 4.30 - 11.10 [facility] 10*3/L [facility] RBC 3.59 (L) 3.93 - 5.25 [facility] 10*6/L [facility] HGB 11.5 (L) 11.6 - 15.0 g/dL [facility] HCT 35.6 (L) 35.7 - 45.2 % [facility] MCH 32.0 25.9 - 32.8 pg [facility] MCV 99.2 (H) 80.6 - 95.5 fL [facility] MCHC 32.3 31.6 - 35.1 g/dL [facility] PLT 229 166 - 358 10*3/L [facility] MPV 13.0 (H) 9.5 - 12.9 fL [facility] RDW-CV 13.3 12.0 - 15.5 % [facility] RDW-SD 48.9 39.0 - 49.9 fL [facility] NRBC x10^3 <0.01 10*3/L [facility] NRBC/100 WBC 0.0 0.0 - 10.0 /100 [facility] WBCs HOSPITAL [facility]ORY IPF % [facility] Specimen Blood Performing Organization Address City/State/Zipcode Phone Number [facility] CLIA: [id number], [address] [place], [place] [address] documented in this encounter Visit Diagnoses Diagnosis Chronic combined systolic and diastolic heart failure - Primary PAF (paroxysmal atrial fibrillation) Atrial fibrillation Essential hypertension Unspecified essential hypertension documented in this encounter Insurance Payer Benefit Plan / Subscriber ID Effective Phone Address T ype Group Dates [facility] [id number] 2019-Nuria javier Adv HEALTHCARE - MEDICARE nt HMO MANAGED MEDICARE ADVANTAGE (Home) [place] [address] documented as of this encounter Advance Directives Name Relationship Healthcare Agent Communication Relationship Marcella Schmitz Child Primary healthcare agent [phone] (Mobile) nadia [email or web address]
--- OUTSIDE RECORDS SUMMARY | 2019-11-08 13:41 | XMS REPORT | Summary of Care ---
:1945 Author Organization [facility] Address [address] [place], [place] [address] Care Team Providers Name Role Phone Ortega Dorsey MD Family Consumer Scientist [phone] Lauryn Moscoso MD Primary Care Provider Lauren Dickinson DO Clinical Education Manager Reason for Visit Reason Comments Lab Results med adjustment Encounter Details Date Type Department Care Team Description 08/18/2019 Telephone [facility] Sriram Heath M D Lab Results (med Cardiology- [address]) [address] [place], [place] [phone] Allergies No Known Allergiesdocumented as of this encounter (statuses as of 08/18/2019) Medications Medication Sig Dispensed Refills Start Date [...] BY MOUTH Other EVERYDAY AT hyperlipidemia BEDTIME PHENYTOIN EXTENDED TAKE 1 CAPSULE 270 capsule 1 05/29/2019 Active 100 mg BY MOUTH EVERY capsuleIndications: MORNING AND 2 Seizure disorder CAPSULES IN THE EVENING METOPROLOL TAKE 1 TABLET 60 tablet 6 08/15/2019 Acti ve SUCCINATE XL 25 mg BY MOUTH TWICE 24 hr A DAY tabletIndications: Essential hypertension DIGOXIN 125 mcg TAKE 1 TABLET 30 [...] disease, with long-term current use of insulin sacubitril-valsarta Take 0.5 60 tablet 2 08/18/2019 Active n (ENTRESTO) 24-26 tablets by mg mouth 2 (two) tabletIndications: times daily. Chronic systolic heart failure sacubitril-valsarta Take 1 tablet 60 tablet 2 05/20/201908/17 Discontinued n (ENTRESTO) 24-26 by mouth 2 0 mg (two) times tabletIndications: daily. Chronic systolic heart failure documented as of this encounter (statuses as of 08/18/2019) Active Problems Problem Noted Date Spontaneous ecchymoses [...] as of this encounter (statuses as of 08/18/2019) Immunizations Name Administration Dates Next Due HEP [...] Office Visit Cardiology Sriram Heath M D [address] [place] [address] [address] [place], [place] [address] [phone] 09/16/2019 Office Visit Cardiology Silverio Menendez MD [address] [place] [phone] 11/14/2019 Nurse Visit Cardiology Visit, Adc Nurse 11/19/2019 Office Visit Endocrinology Diabetes & CastleDuncan MD [address] [address] [phone] Health Maintenance Due Date Last Done Comments [...] completed) URINE MICROALBUMIN 04/09/2020 04/09/2019, 06/17/2018, 06/21/2017 LDL-C 07/17/2020 07/18/2019, 06/17/2018, 06/21/2017, Additional history exists CREATININE (SERUM) 08/14/2020 08/15/2019, 06/30/2019, 01/19/2019, Additional history exists HEPATITIS C (HCV) SCREEN Completed 06/21/2017 documented as of this encounter Implants Implanted Type Area Domestic Travel Consultant Device Shelf Model / Identifier Expiration Serial / Date Lot Defibrillator DEFIBRILLATOR Medtronic DT [id number] / [id number] / documented as of this encounter Results Not on filedocumented in this encounter Visit Diagnoses Diagnosis Chronic systolic heart failure documented in this encounter Insurance Payer Benefit Plan / Subscriber ID Effective Phone Address T e Group Dates [facility] [id number] 2019-Nuria javier Adv HEALTHCARE - MEDICARE HMO MANAGED MEDICARE ADVANTAGE documented as of this encounter Advance Directives Name Relationship Healthcare Agent Communication Relationship Marcella Schmitz Child Primary healthcare agent nadia [email or web address]
--- OUTSIDE RECORDS SUMMARY | 2019-11-08 13:41 | XMS REPORT | Summary of Care ---
:1945 Author Organization [facility] - Health Address [address] [place], [place] [address] Care Team Providers Name Role Phone Willian Lucillefernandez Tayler SQUIRES Service Tech [phone] Lauryn Moscoso MD Primary Care Provider Lauren Dickinson DO Scanning Supervisor Encounter Details Date Type Department Care Team Description 08/13/2019 Orders Only [facility] Doctor Unassigned, No 301 [facility] [place] [address] Allergies No Known Allergiesdocumented as of this encounter (statuses as of 08/19/2019) Medications Medication Sig Dispensed Refills Start Date [...] tabletIndications: MOUTH EVERYDAY Other hyperlipidemia AT BEDTIME PHENYTOIN EXTENDED 100 TAKE 1 CAPSULE 270 [...] as of this encounter (statuses as of 08/19/2019) Active Problems Problem Noted Date Spontaneous ecchymoses [...] as of this encounter (statuses as of 08/19/2019) Immunizations Name Administration Dates Next Due HEP [...] Office Visit Cardiology Sriram Heath M D [address] [place] [address] [place] [address] 53 15 09/16/2019 Office Visit Cardiology Silverio Menendez MD [address] [place], [place] [address]. [place] [address] 11/14/2019 Nurse Visit Cardiology Visit, Adc Nurse 11/19/2019 Office Visit Endocrinology Diabetes & Castle, Duncan bhatt MD Metabolism [address] [place] [address] [phone] Health Maintenance Due Date Last Done Comments [...] of this encounter Implants Implanted Type Area Daytime Babysitter Device Shelf Model / Identifier Expiration Serial / Date Lot Defibrillator DEFIBRILLATOR Medtronic DT [id number] / [id number] / documented as of this encounter Procedures Procedure Name Priority Date/Time Associated Diagnosis Comme nts PATIENT QUESTIONNAIRE Routine 08/13/2019 12:01 AM CDT documented in this encounter Results Not on filedocumented in this encounter Insurance Payer Benefit Plan / Subscriber ID Effective Phone Address T ype Group Dates [facility]/AARJose Juan [id number] 2019-Nuria javier Formerly [facility] - MEDICARE nt HMO MANAGED MEDICARE ADVANTAGE documented as of this encounter Advance Directives Name Relationship Healthcare Agent Communication Relationship Marclela Schmitz Child Primary healthcare agent [phone] (Mobile) nadia [email or web address]
--- OUTSIDE RECORDS SUMMARY | 2019-11-08 13:41 | XMS REPORT | Summary of Care ---
:1945 Author Organization [facility] - [facility] Address [address] [place], [place] [address] Care Team Providers Name Role Phone Ortega Dorsey MD Neurosurgery Spine Physician [phone] Lauryn Moscoso MD Primary Care Provider Lauren Dickinson DO [employer] Hcm Consultant Reason for Visit Reason Comments Refill Request Encounter Details Date Type Department Care Team Description 08/25/2019 Refill [facility] Family Medicine Sriram Hetah MD Refill Request - [place] [address] [place] [address] [place] [address] [phone] Allergies No Known Allergiesdocumented as of this encounter (statuses as of 08/25/2019) Medications Medication Sig Dispensed Refills Start Date [...] tabletIndications: times daily. Chronic systolic heart failure METOPROLOL TAKE 1 TABLET 180 tablet 3 08/25/2019 Act fernando SUCCINATE XL 25 mg BY MOUTH TWICE 24 hr A DAY tabletIndications: Essential hypertension METOPROLOL TAKE 1 TABLET 60 tablet 6 08/15/2019 Disc ontinued SUCCINATE XL 25 mg BY MOUTH TWICE 0 24 hr A DAY tabletIndications: Essential hypertension documented as of this encounter (statuses as of 08/25/2019) Active Problems Problem Noted Date Spontaneous ecchymoses [...] as of this encounter (statuses as of 08/25/2019) Immunizations Name Administration Dates Next Due HEP [...] Visit Cardiology Sriram Heath M D [address] [facility] [address] [place], [place] [address] [phone] 09/16/2019 Office Visit Cardiology Silverio Menendez MD [address] [place] [address]. [place] [address] 11/14/2019 Nurse Visit Cardiology Visit, Adc Nurse 11/19/2019 Office Visit Endocrinology Diabetes & Duncan Castle MD [address] [address] Health Maintenance Due Date Last Done Comments DTaP,Tdap,and Td Vaccines (1 - 1957 Tdap) Zoster Recombinant Vaccine 1996 (SHINGRIX) (1 of 2) Medicare Wellness Visit 2011 Osteoporosis Screening 2011 PNEUMOCOCCAL VACCINES 65+ (2 of 2 02/20/2016 02/19/2015, - PPSV23) Breast Cancer Screening 07/09/2019 07/08/2018 (MAMMOGRAM) EYE EXAM 08/06/2019 08/05/2018, 06/22/2017, 06/22/2017, Additional history exists INFLUENZA VACCINE (#1) 2019 FOOT EXAM 01/07/2020 01/06/2019, 01/06/2019, 06/05/2018, [...] of this encounter Implants Implanted Type Area As400 Programmer Analyst Device Shelf Model / Identifier Expiration Serial / Date Lot Defibrillator DEFIBRILLATOR Medtronic DT BA1D1 / [id number] / documented as of this encounter Results Not on filedocumented in this encounter Visit Diagnoses Diagnosis Essential hypertension Unspecified essential hypertension documented in this encounter Insurance Payer Benefit Plan / Subscriber ID Effective Phone Address T e Group Dates [facility] [id number] 2019-Nuria javier [facility] HEALTHCARE - MEDICARE [facility] documented as of this encounter Advance Directives Name Relationship Healthcare Agent Communication Relationship Marcella Schmitz Child Primary healthcare agent [phone] (Mobile) nadia [email or web address]
--- OUTSIDE RECORDS SUMMARY | 2019-11-08 13:41 | XMS REPORT | Summary of Care ---
:1945 Author Organization [facility] Address [address] [place] [address] Care Team Providers Name Role Phone Ortega Dorsey MD Link Wire Fabric Machine Operator [phone] Lauryn Moscoso MD Primary Care Provider Lauren Dickinson DO Etl Analyst Reason for Visit Reason Comments NURSE VISIT Medtronic ICD check q 3 costa hs in clinic. Encounter Details Date Type Department Care Team Description 08/15/2019 Nurse Visit [facility] Dago Lawrence MD [address] [place] [address] Encounter for interrogation of cardiac d efibrillator (Primary Dx); Cardiology- [place] Visit, Adc Nurse Chronic combined systolic and diastolic heart failure; [facility] (paroxys mal atrial fibrillation); Drive, [address] Essential hypertension; [place], [place] ICD (implantabl e cardioverter-defibrillator) in place [id number] Allergies No Known Allergiesdocumented as of this encounter (statuses as of 08/15/2019) Medications Medication Sig Dispensed Refills Start Date End Date Status Blood-Glucose Meter Check glucose 1 Each 0 07/03/2017 Active Kit once daily before breakfast; Diagnosis code E11.9 blood sugar diagnostic Check glucose 50 Strip 11 07/03/2017 Active (BLOOD GLUCOSE TEST) once daily strip before breakfast; Diagnosis code E11.9 Lancets [facility] Check glucose 50 Each 11 07/03/2017 Ac [...] 8a. documented in this encounter Progress Notes Dago Lawrence MD - 08/15/2019 9:30 AM CDTEP Cardiac Device Check Evaluation performed: Interrogation and programing BiV ICD Device: Medtronic Mode: DDDR Lower rate: 60-130 Battery: 3.6 years Atrial Lead: Sensin.0 mV Impedance: 437 Ohms Threshold: 0.625 V @ 0.4 ms Right Ventricular Lead: Sensing: >20 mV Impedance: 456 Ohms Threshold: 0.625 V @ 0.4 ms Left Ventricular Lead: Impedance: 437 Ohms Threshold: 0.5 V @ 0.4 ms Shock impedence: 40 Ohms Zones: AT/AF: Monitor > 133 bpm VF On > 188 ATP during charging. 35 X 6 FVT Via VF 188-222 Burst. 35 X 6 VT off Arrhythmias: BiV pacing at 94.8% 3 VT noted in the monitored zone. Multiple episode of SVT noted. Likely atrial fibrillation with RVR. Recommendations: Normal functioning device and leads. Follow up in 3 months. Sergio Lawrence MD Motion Picture Set Up Worker, Division of Cardiology [facility] [place] Garcia RN - 08/15/2019 9:30 AM CDTPatient here for ICD device check. Check done via express link by nursing staff, patient admitting representative unable to come for check-report will be emailed for review. Patient states that she is not feeling well, still having issues with high HR and low BP. Last medication adjustment was made on 08.06.2019. Report/call received from [place]. Normal device function, no changes recommended. Frequent [...] Office Visit Cardiology Sriram Heath M D [address] [place] [address] [place] [address] 09/16/2019 Office Visit Cardiology Silverio Menendez MD [address] [place] [address]. [place] [address] 11/14/2019 Nurse Visit Cardiology Visit, Adc Nurse 11/19/2019 Office Visit Endocrinology Diabetes & Duncan Castle MD Metabolism [address] [place] [address] Health Maintenance Due Date Last Done Comments [...] of this encounter Implants Implanted Type Area Angle Shear Operator Device Shelf Model / Identifier Expiration Serial / Date Lot Defibrillator DEFIBRILLATOR Medtronic DT BA1D1 / [id number] / documented as of this encounter Results DIGOXIN, LEVEL (08/15/2019 10:17 AM CDT) Pathologist Sig nature DIGOXIN 0.5 (L) 0.8 - 1.6 ng/mL [facility] Specimen Blood Narrative Performed At Arrythmias: 1.5 - 2.0 ng/m L [facility] Toxic Range: Greater than or equal to 2.4 ng/mL Performing Organization Address City/State/Zipcode Phone Number [facility] CLIA: [id number], [address] [place] [address] CBC W/O DIFF (08/15/2019 10:17 AM CDT) Pathologist Sig nature WBC 7.62 4.30 - 11.10 [facility] 10*3/L [facility] RBC 3.59 (L) 3.93 - 5.25 [facility] 10*6/L [facility] HGB 11.5 (L) 11.6 - 15.0 g/dL [facility] HCT 35.6 (L) 35.7 - 45.2 % [facility] MCH 32.0 25.9 - 32.8 pg [facility] MCV 99.2 (H) 80.6 - 95.5 fL [facility] MCHC 32.3 31.6 - 35.1 g/dL [facility] PLT 229 166 - 358 10*3/L [facility] MPV 13.0 (H) 9.5 - 12.9 fL [facility] RDW-CV 13.3 12.0 - 15.5 % [facility] RDW-SD 48.9 39.0 - 49.9 fL [facility] NRBC x10^3 <0.01 10*3/L [facility] NRBC/100 WBC 0.0 0.0 - 10.0 /100 [facility] WBCs [facility]OS[facility] IPF % [facility] Specimen Blood Performing Organization Address City/State/Zipcode Phone Number [facility] CLIA: [id number], [address] [place], [place] [address] N-TERMINAL PRO-BNP (08/15/2019 10:17 AM CDT) Pathologist Sig nature NT-proBNP 1,170 (H) <=125 pg/mL [facility] Specimen Blood Narrative Performed At Biotin has been reported to cause a negative [facility] bias, interpret results relative to patient's use of biotin. Performing Organization Address City/State/[facility] Phone Number [facility] CLIA: [id number], [address] [place], [place] [address] COMP. METABOLIC PANEL ([id number]) (08/15/2019 10:17 AM CDT) NA 141 135 - 145 [facility] mmol/L [facility] K 5.2 (H) 3.5 - 5.0 [facility] mmol/L [facility] CL 106 98 - 108 mmol/L [facility] CO2 TOTAL 28 23 - 31 mmol/L [facility] AGAP 7 2 - 16 [facility] BUN 61 (H) 7 - 23 mg/dL [facility] GLUCOSE 250 (H) 70 - 110 mg/dL [facility] CREATININE 1.72 (H) 0.50 - 1.04 [facility] mg/dL [facility] TOTAL BILI 0.2 0.1 - 1.1 mg/dL [facility] CALCIUM 9.4 8.6 - 10.6 [facility] mg/dL [facility] T PROTEIN 7.6 6.3 - 8.2 g/dL [facility] ALBUMIN 4.1 3.5 - 5.0 g/dL [facility] ALK PHOS 137 (H) 34 - 122 U/L [facility] ALTv 15 5 - 35 U/L [facility] AST(SGOT) 19 13 - 40 U/L [facility] eGFR Calculation 29.1 mL/min/1.73m2 [facility] ([facility] [place]ien) eGFR Calculation 35.2 mL/min/1.73m2 [facility] () [facility] Specimen Blood Narrative Performed At Association [...] tests). Performing Organization Address City/State/Zipcode Phone Number [facility] CLIA: [id number], [address] [place], [place] [address] documented in this encounter Visit Diagnoses Diagnosis Encounter for interrogation of cardiac d efibrillator - Primary Fitting and adjustment of automatic impl antable cardiac defibrillator Chronic combined systolic and diastolic heart failure PAF (paroxysmal atrial fibrillation) Atrial fibrillation Essential hypertension Unspecified essential hypertension ICD (implantable cardioverter-defibrilla tor) in place documented in this encounter Insurance Payer Benefit Plan / Subscriber ID Effective Phone Address T normae [employer] [facility] [id number] 2019-Nuria javier Adv HEALTHCARE - MEDICARE nt HMO MANAGED MEDICARE ADVANTAGE (Home) [place] [address] documented as of this encounter Advance Directives Name Relationship Healthcare Agent Communication Relationship Marcella Schmitz Child Primary healthcare agent [phone] (Mobile) nadia [email or web address]
--- OUTSIDE RECORDS SUMMARY | 2019-11-08 13:41 | XMS REPORT | Summary of Care ---
:1945 Author Organization [facility] Address [address] [place], [place] [address] Care Team Providers Name Role Phone Ortega Dorsey MD Corncob Pipe Supervisor [phone] Lauryn Moscoso MD Primary Care Provider Lauren Dickinson DO Food Aide Reason for Visit Reason Comments Refill Request Encounter Details Date Type Department Care Team Description 08/13/2019 Refill [facility] Cardiology- Guille Heath MD Refill Request [address] [facility], [address] [place] [address] [place] [address] [phone] Allergies No Known Allergiesdocumented as of this encounter (statuses as of 08/22/2019) Medications Medication Sig Dispensed Refills Start Date [...] as of this encounter (statuses as of 08/22/2019) Active Problems Problem Noted Date Spontaneous ecchymoses [...] as of this encounter (statuses as of 08/22/2019) Immunizations Name Administration Dates Next Due HEP [...] Visit Cardiology Sriram Heath M D [address] [place] [address] [place] [address] 09/16/2019 Office Visit Cardiology Silverio Menendez MD [address] [place] [address]. [place] [address] 11/14/2019 Nurse Visit Cardiology Visit, Adc Nurse 11/19/2019 Office Visit Endocrinology Diabetes & Duncan Castle MD Metabolism [address] [place] [address] [phone] Health Maintenance Due Date Last Done Comments [...] of this encounter Implants Implanted Type Area Financial Advisor Device Shelf Model / Identifier Expiration Serial / Date Lot Defibrillator DEFIBRILLATOR Medtronic DT BA1D1 / [id number] / documented as of this encounter Results Not on filedocumented in this encounter Visit Diagnoses Diagnosis Chronic combined systolic and diastolic heart failure documented in this encounter Insurance Payer Benefit Plan / Subscriber ID Effective Phone Address T ype Group Dates [facility] [id number] 2019-Nuria javier [facility] - MEDICARE nt HMO MANAGED MEDICARE ADVANTAGE documented as of this encounter Advance Directives Name Relationship Healthcare Agent Communication Relationship Marcella Schmitz Child Primary healthcare agent [phone] (Mobile) [email or web address]
--- OUTSIDE RECORDS SUMMARY | 2019-11-08 13:41 | XMS REPORT | Summary of Care ---
:1945 Author Organization [facility] - Health Address [address] [place], [place] [address] Care Team Providers Name Role Phone WillianOrtega Tayler SQUIRES Inspector And Adjuster Golf Club Head [phone] Lauryn Moscoso MD Primary Care Provider Lauren Dickinson DO Acetylene Burner Encounter Details Date Type Department Care Team Description 07/30/2019 Orders Only [facility] Doctor Unassigned, No 301 [facility] [place] [address] Allergies No Known Allergiesdocumented as of this [...] Office Visit Cardiology Sriram Heath M D [address] [place] [address] [place], [place] [address] 09/16/2019 Office Visit Cardiology Silverio Menendez MD [address] [place] [phone] 11/14/2019 Nurse Visit Cardiology Visit, Adc Nurse 11/19/2019 Office Visit Endocrinology Diabetes & Duncan Castle MD [address] [address] [phone] Health Maintenance Due Date Last Done Comments [...] of this encounter Implants Implanted Type Area Machine Ii Cutter Device Shelf Model / Identifier Expiration Serial / Date Lot Defibrillator DEFIBRILLATOR Medtronic DT BA1D1 / [id number] / documented as of this encounter Procedures Procedure Name Priority Date/Time Associated Diagnosis Comme nts PATIENT QUESTIONNAIRE Routine 07/30/2019 12:01 AM CDT documented in this encounter Results Not on filedocumented in this encounter Insurance Payer Benefit Plan / Subscriber ID Effective Phone Address T ype Group Dates [facility] [id number] 2019-Nuria Langford HEALTHCARE - MEDICARE nt HMO MANAGED MEDICARE ADVANTAGE documented as of this encounter Advance Directives Name Relationship Healthcare Agent Communication Relationship Marcella Schmitz Child Primary healthcare agent [email or web address]
--- OUTSIDE RECORDS SUMMARY | 2019-11-08 13:42 | XMS REPORT | Summary of Care ---
:1945 Author Organization [facility] Address [address] [place], [place] [address] Care Team Providers Name Role Phone Ortega Dorsey MD Child Development Consultant Lauryn Moscoso MD Primary Care Provider Lauren Dickinson DO Foundry Helper Reason for Visit Reason Comments Assessment Encounter Details Date Type Department Care Team Description 09/10/[address] [facility] Pediatric and Kylah Casillas MD Assessment Adult Primary Care- [address] [address] [place] [address], [phone] [address] [place] [address] Allergies No Known Allergiesdocumented as of this encounter (statuses as of 09/11/2019) Medications Medication Sig Dispensed Refills Start Date [...] disease, with long-term current use of insulin sacubitril-valsartan Take 0.5 tablets 60 tablet 2 08/18/2019 Active (ENTRESTO) 24-26 mg by mouth 2 (two) tabletIndications: times daily. Chronic systolic heart failure documented as of this encounter (statuses as of 09/11/2019) Active Problems Problem Noted Date Spontaneous ecchymoses [...] as of this encounter (statuses as of 09/11/2019) Immunizations Name Administration Dates Next Due HEP [...] been in contact with No / Unsure 09/08/2019 1:21 PM CDT someone who was confirmed or suspected to have Coronavirus / COVID-19? documented as of this encounter Last Filed Vital Signs Not on filedocumented in this encounter Plan of Treatment Date Type Specialty Care Team Description 09/15/2019 Laboratory Only Cardiology Sriram Heath M D [address] [facility] [address] [place], [place] [address] Pc, Adc Echo Room 1 - 09/16/2019 Office Visit Cardiology Silverio Menendez MD [address] [place] [address]. [place] [address] 11/14/2019 Nurse Visit Cardiology Visit, Adc Nurse 11/19/2019 Office Visit Endocrinology Diabetes & Duncan Castle MD [place] [place] [address] [phone] 01/12/2020 Office Visit Cardiology Sriram Heath M D [address] [facility] [address] [place], [place] [address] [phone] Health Maintenance Due Date Last Done Comments [...] of this encounter Implants Implanted Type Area Primary School Teacher Librarian Device Shelf Model / Identifier Expiration Serial / Date Lot Defibrillator DEFIBRILLATOR Medtronic DT BA1D1 / [id number] / documented as of this encounter Results Not on filedocumented in this encounter Insurance Payer Benefit Plan / Subscriber ID Effective Phone Address T ype Group Dates [facility] [id number] 2019-Nuria javier [facility] HEALTHCARE - [facility]IC[facility] documented as of this encounter Advance Directives Name Relationship Healthcare Agent Communication Relationship Marcella Schmitz Child Primary healthcare agent [phone] (Mobile) nadia [email or web address]
--- OUTSIDE RECORDS SUMMARY | 2019-11-08 13:42 | XMS REPORT | Summary of Care ---
:1945 Author Organization [facility] - [facility] Address [address] [place] [address] Care Team Providers Name Role Phone Ortega Dorsey MD Registered Veterinary Technician [phone] Lauryn Moscoso MD Primary Care Provider Lauren Dickinson DO Trauma Therapist Reason for Referral (Routine) Status Reason Specialty Diagnoses / Referred By Referred To Procedures Contact Contact New Request Cardiology Diagnoses Chronic systolic heart failure Sriram Heath MD Procedures ECHO ROUTINE W/DOPPLER COLOR Preferred Location: [facility] [address] [place] [address] [address] [place], [place] [address] Reason for Visit Reason Comments Follow-up PAF (paroxysmal atrial fibri llation); Chronic systolic heart failure Shortness of Breath with exertion Refill Request Encounter Details Date Type Department Care Team Description 09/08/2019 Office Visit [facility] Sriram Heath M D Chronic systolic heart failure (Primary Dx); Cardiology- [address] PAF (paroxysmal atrial fibri llation); [address] Other hyperlipidemia; [facility], [address] Essential hypertension; [place] [address] Obesity (BMI 30-39.9); [id number] ICD (implantable cardioverter-defibrilla tor) in place [phone] Allergies No Known Allergiesdocumented as of this encounter (statuses as of 09/08/2019) Medications Medication Sig Dispensed Refills Start Date [...] TAKE 1 TABLET 180 tablet 3 08/25/2019 Dis continued SUCCINATE XL 25 mg BY MOUTH TWICE 0 24 hr A DAY tabletIndications: Essential hypertension documented as of this encounter (statuses as of 09/08/2019) Active Problems Problem Noted Date Spontaneous ecchymoses [...] as of this encounter (statuses as of 09/08/2019) Immunizations Name Administration Dates Next Due HEP [...] Sign Reading Time Taken Comments Blood Pressure 135/61 09/08/2019 1:29 PM CDT Pulse 76 09/08/2019 1:29 PM CDT Temperature - - Respiratory Rate 19 09/08/2019 1:29 PM CDT Oxygen Saturation 98% 09/08/2019 1:29 PM CDT Inhaled Oxygen Concentration - - Weight 80.9 kg (178 lb 6.4 oz) 09/08/2019 1:29 PM CDT Height 152.4 cm (5') 09/08/2019 1:29 PM CDT Body Mass Index 34.84 09/08/2019 1:29 PM CDT documented in this encounter Progress Notes Sriram Heath MD - 09/08/2019 1:20 PM CDT CARDIOLOGY CLINIC NOTE 09/08/2019 Reason for Referral/Presenting Complaint: HFpEF, Afib PCP: Kylah Moscoso History of Present Illness: Teena Simpson is a 74 years old female with history of HFrEF (NICM, EF 20-25% per echo 03/05/17, NYHA functional class III, Stage C) s/p MID LEVEL PRACTITIONER-D at OSH in 2011, pAFib on Xarelto, NSVT, DM2, HTN, HLD, ASHLYN noncompliant with CPAP, h/o PE, and epilepsy. In 02/2017 she was admitted to [facility] for syncope and ICD shocks due to VT. Was initiated on amiodarone. In 01/2018 she was admitted to [facility] for volume overload. Admitted to [facility] in 06/2018 for chest pain. [place] ruled out. Admitted to [facility] in 11/2018 for dizziness and orthostasis. Lasix was reduced. Coreg changed to metoprolol. Amiodarone was stopped by HF team due to hyperthyroidism. She was seen for R big toe tip blister and black color. RLE pain with walking, RLE edema. KENTON and venous duplex negative. In 07/2019 she was admitted to [facility] twice for chest pain, dizziness, etc. Nuclear stress test showed small ischemia in anteroseptal. LHC showed no significant CAD. Since last visit she has been doing well. No edema. Chronic dyspnea on exertion. No orthopnea. Mild weight loss. Occasional fast heart rate with low BP. EKG--04/28/2019--reviewed by me--Atrial sense V-paced with PVCs/NSVT Nuc MPI 07/2019--Small anteroseptal ischemia LHC--07/2019--Non obstructive CAD Review of Systems: General: (-) fever, (-) [...] Current Outpatient Medications Medication Sig Dispense Refill METOPROLOL SUCCINATE XL 25 mg 24 hr tablet TAKE 1 TABLET BY MOUTH TWICE A DAY 180 tablet 3 sacubitril-valsartan (ENTRESTO) 24-26 mg tablet Take 0.5 tablets by mouth 2 (two) times daily. 60 tablet 2 insulin NPH (NOVOLIN N NPH U-100 INSULIN) 100 unit/mL injection inject 28 Units under the skin every morning and evening. 30 mL 3 DIGOXIN 125 mcg (0.125 mg) tablet TAKE 1 TABLET BY MOUTH EVERY DAY 30 tablet 5 XARELTO 15 mg tablet TAKE 1 TABLET BY MOUTH EVERY DAY 30 tablet 5 metoprolol succinate XL 50 mg 24 hr tablet Take 1 tablet by mouth 2 (two) times daily. 270 tablet 1 PHENYTOIN EXTENDED 100 mg capsule TAKE 1 CAPSULE BY MOUTH EVERY MORNING AND 2 CAPSULES IN THE EVENING 270 capsule 1 atorvastatin 40 mg tablet TAKE 1 TABLET BY MOUTH EVERYDAY AT BEDTIME 90 tablet 1 furosemide 40 mg tablet Take 40 mg by mouth as needed (worsening swelling or SOB). 15 tablet 0 traMADol 50 mg tablet Take 1 tablet by mouth every 6 (six) hours as needed (pain). 20 tablet 0 insulin regular human (NOVOLIN R REGULAR U-100 [...] Onset Diabetes Mother Diabetes Brother Physical Examination: Vitals: 09/08/19 1329 BP: 135/61 BP Location: Right arm Patient Position: Sitting BP CUFF SIZE: Adult Large Pulse: 76 Resp: 19 SpO2: 98% Weight: 178 lb 6.4 oz (80.9 kg) Height: 5' (1.524 m) Constitutional: alert and oriented x 3 (person, [...] PAF (paroxysmal atrial fibrillation) I48.0 427.31 3. Other hyperlipidemia E78.49 272.4 4. Essential hypertension I10 401.9 5. Obesity (BMI 30-39.9) E66.9 278.00 6. ICD (implantable cardioverter-defibrillator) in place Z95.810 V45.02 HTN--Her BP is normal now. HFrEF--Her volume status has improved. Currently taking lasix 20 or 40 mg every other day. On ToprolXL/entresto. Low salt diet. Due to low BP episodes, we have reduced Entresto dosage to half tablet BID. PAfib--Now paced rhythm but probably pAfib. Off amiodarone due to thyroid side effects. On Xarelto. No bleeding. We increased Toprol XL to 50 mg BID. S/p MID LEVEL PRACTITIONER- D. Referred to EP. ASHLYN--unable to tolerate C-PAP. Refer to sleep medicine. Carotid artery disease--bilateral moderate disease. On high intensity lipitor. LDL 54. Carotid in 07/2019 showed no significant stenosis. Patient was counseled for lifestyle modifications including: diet, exercise and weight loss. RTC 3 month Sriram Heath MD, FACC, MADISYN Space Officer, Division of Cardiology [facility] documented in this encounter Plan of Treatment Date Type Specialty Care Team Description 09/15/2019 Laboratory Only Cardiology Pc, [facility] Echo Room 1 - 09/16/2019 Office Visit Cardiology Silverio Menendez MD [address] [place] [address]. [place] [phone] 11/14/2019 Nurse Visit Cardiology Visit, Adc Nurse 11/19/2019 Office Visit Endocrinology Diabetes & Duncan Castle MD Metabolism [address] [place] [address] [phone] 01/12/2020 Office Visit Cardiology Sriram Heath M D [address] [place] [address] [place] [address] [phone] Health Maintenance Due Date Last Done Comments [...] of this encounter Implants Implanted Type Area Harness Tier Device Shelf Model / Identifier Expiration Serial / Date Lot Defibrillator DEFIBRILLATOR Medtronic DT [id number] / [id number] / documented as of this encounter Results Not on filedocumented in this encounter Visit Diagnoses Diagnosis Chronic systolic heart failure - Primary PAF (paroxysmal atrial fibrillation) Atrial fibrillation Other hyperlipidemia Essential hypertension Unspecified essential hypertension Obesity (BMI 30-39.9) Obesity, unspecified ICD (implantable cardioverter-defibrilla tor) in place documented in this encounter Insurance Payer Benefit Plan / Subscriber ID Effective Phone Address T ype Group Dates [facility] [id number] 2019-Nuria javier [facility] - MEDICARE HMO MANAGED MEDICARE ADVANTAGE ([place]) [place] [address] documented as of this encounter Advance Directives Name Relationship Healthcare Agent Communication Relationship Marcella Schmitz Child Primary healthcare agent [phone] (Mobile) nadia [email or web address]
--- OUTSIDE RECORDS SUMMARY | 2019-11-08 13:42 | XMS REPORT | Summary of Care ---
:1945 Author Organization [facility] Address [address] [place] [address] Care Team Providers Name Role Phone Ortega Dorsey MD Business Proposal Rep [phone] Lauryn Moscoso MD Primary Care Provider Lauren Dickinson DO Prawn Trawler Hand Reason for Referral (Routine) Status Reason Specialty Diagnoses / Referred By Referred To Procedures Contact Contact New Request Cardiology Diagnoses Chronic systolic heart failure Sriram Heath MD Procedures ECHO ROUTINE W/DOPPLER COLOR Preferred Location: [facility] [address] [place] [address] [address] [place], [place] [address] Reason for Visit Reason Comments Follow-up PAF (paroxysmal atrial fibri llation); Chronic systolic heart failure Shortness of Breath with exertion Refill Request Encounter Details Date Type Department Care Team Description 09/08/2019 Office Visit [facility] Sriram Heath M D Chronic systolic heart failure (Primary Dx); Cardiology- [address] PAF (paroxysmal atrial fibri llation); [address] Other hyperlipidemia; [facility], [address] Essential hypertension; [place] [address] Obesity (BMI 30-39.9); [id number] ICD (implantable cardioverter-defibrilla tor) in place [phone] Allergies No Known Allergiesdocumented as of this [...] NYHA functional class III, Stage C) s/p UPHOLSTERY ESTIMATOR-D at OSH in 2011, pAFib on Xarelto, NSVT, DM2, HTN, HLD, ASHLYN noncompliant with CPAP, h/o PE, and epilepsy. In 02/2017 she was admitted to [facility] for syncope and ICD shocks due to VT. Was initiated on amiodarone. In 01/2018 she was admitted to [facility] for volume overload. Admitted to [facility] in 06/2018 for chest pain. [place] ruled out. Admitted to [facility] in 11/2018 for dizziness and orthostasis. Lasix was reduced. Coreg changed to metoprolol. Amiodarone was stopped by HF team due to hyperthyroidism. She was seen for R big toe tip blister and black color. RLE pain with walking, RLE edema. KENTON and venous duplex negative. In 07/2019 she was admitted to [facility] twice for chest pain, dizziness, etc. Nuclear [...] file Gets together: Not on file Attends hoahaoism service: Not on file Active member of [...] Toprol XL to 50 mg BID. S/p UPHOLSTERY ESTIMATOR- D. Referred to EP. ASHLYN--unable to tolerate C-PAP. Refer to sleep medicine. Carotid artery disease--bilateral moderate disease. On high intensity lipitor. LDL 54. Carotid in 07/2019 showed no significant stenosis. Patient was counseled for lifestyle modifications including: diet, exercise and weight loss. RTC 3 month Sriram Heath MD, FACC, MADISYN Ultrasound Specialist, Division of Cardiology [facility] documented in this encounter Plan of Treatment Date Type Specialty Care Team Description 09/15/2019 Laboratory Only Cardiology Pc, [facility] Echo Room 1 - 09/16/2019 Office Visit Cardiology Silverio Menendez MD [address] [place] [address]. [place] [phone] 11/14/2019 Nurse Visit Cardiology Visit, Adc Nurse 11/19/2019 Office Visit Endocrinology Diabetes & Duncan Castle MD Metabolism [address] [place] [address] [phone] 01/12/2020 Office Visit Cardiology Sriram Heath M D [address] [place] [address] [place] [address] [phone] Health Maintenance Due Date Last Done Comments [...] of this encounter Implants Implanted Type Area Wet Room Supervisor Device Shelf Model / Identifier Expiration Serial / Date Lot Defibrillator DEFIBRILLATOR Medtronic DT [id number] / [id number] / documented as of this encounter Results [...] Effective Phone Address T ype Group Dates [facility] [id number] 2019-Nuria javeir [facility] - MEDICARE HMO MANAGED MEDICARE ADVANTAGE ([place]) [place] [address] documented as of this encounter Advance Directives Name Relationship Healthcare Agent Communication Relationship Marcella Schmitz Child Primary healthcare agent [phone] (Mobile) nadia [email or web address]
--- OUTSIDE RECORDS SUMMARY | 2019-11-08 13:43 | XMS REPORT | Summary of Care ---
:1945 Author Organization [facility] - [place] [id number] Care Team Providers Name Role Phone Ortega Dorsey MD Slot Manager [phone] Lauryn Moscoso MD Primary Care Provider Lauren Dickinson DO Head Worker Reason for Visit Reason Comments New Patient Establish Care HFrEF s/p SUGAR LABORATORY ASSISTANT-D, pAfib off a miodarone due to thyroid side effect (Routine) Status Reason Specialty Diagnoses / Procedures Referred By Babita lawrence Referred To Contact Closed Cardiology Diagnoses Atrial fibrillation, unspecified type Sriram Heath MD Procedures CONSULT CARDIAC EP/HEART RHYTHM CENTER [address] [facility] [address] [place], [place] [address] Phone: Encounter Details Date Type Department Care Team Description 09/16/2019 Office Visit [facility] Silverio Menendez MD Paroxysmal atrial Cardiology- [address] fibrillation (Primary [address], [address] [address] [place], [place] [phone] [address] [phone] Allergies No Known Allergiesdocumented as of this encounter (statuses as of 09/16/2019) Medications Medication Sig Dispensed Refills Start Date [...] as of this encounter (statuses as of 09/16/2019) Active Problems Problem Noted Date Spontaneous ecchymoses [...] as of this encounter (statuses as of 09/16/2019) Immunizations Name Administration Dates Next Due HEP [...] been in contact with No / Unsure 09/16/2019 10:54 AM CDT someone who was confirmed or suspected to have Coronavirus / COVID-19? documented as of this encounter Last Filed Vital Signs Vital Sign Reading Time Taken Comments Blood Pressure 147/76 09/16/2019 11:03 AM CDT Pulse 74 09/16/2019 11:00 AM CDT Temperature - - Respiratory Rate 19 09/16/2019 11:00 AM CDT Oxygen Saturation 98% 09/16/2019 11:00 AM CDT Inhaled Oxygen Concentration - - Weight 80.6 kg (177 lb 9.6 oz) 09/16/2019 11:00 AM CDT Height 152.4 cm (5') 09/16/2019 11:00 AM CDT Body Mass Index 34.69 09/16/2019 11:00 AM CDT documented in this encounter Progress Notes Silverio Menendez MD - 09/16/2019 10:40 AM CDT Cardiac EP [facility] Note Reason for Evaluation / Chief Complaint: Afib Referring Provider: Dr. Heath HPI: Teena Simpson is a 74 year old female with a history of NICM, status post CRTD, atrial fibrillation, paroxysmal with hypotension and dyspnea, her device checks have shown increasing atrial fibrillation episodes, some are lasting hours now. She is anti coagulated and is shiela Toprol and Digoxin, SUGAR LABORATORY ASSISTANT pacing is reduced due to atrial fibrillation, no chest pain or syncope PMH: Past Medical History: Diagnosis Date A-fib Abnormal [...] 06/29/2017 ICD (implantable cardiac defibrillator) in place 2009 Multiple renal cysts 06/29/2017 Bosniak I type per Radiology Multiple thyroid nodules 12/18/2018 "no worrisome features" per US 12/18/18 Non-ischemic cardiomyopathy ASHLYN (obstructive sleep apnea) Osteoarthritis of left knee 02/25/2018 PE (pulmonary embolism) 2010 Spondylolisthesis, lumbar region 02/25/2018 Social History: Social History Socioeconomic History Marital [...] file Gets together: Not on file Attends adventism service: Not on file Active member of [...] Social History Narrative Lives with retired Family History: Family History Problem Relation Age of Onset Diabetes Mother Diabetes Brother Allergies: No Known Allergies Medications: Current Outpatient Medications Medication Sig Dispense Refill sacubitril-valsartan (ENTRESTO) 24-26 mg tablet Take 0.5 [...] No current facility-administered medications for this visit. Review of Systems: General: fatigue Eyes: denies complaint Ears/Nose/Mouth/Throat: denies complaint Cardiovascular: as per hpi Respiratory: dyspnea on exertion Musculoskeletal: denies complaint Skin: denies complaint Neurologic: denies complaint Psychiatric: denies complaint Endocrine: denies complaint Hematologic: denies complaint Allergy/Immunology: denies complaint Physical Exam: Vitals: Vitals: 09/16/19 1100 09/16/19 1103 BP: (!) 154/78 (!) 147/76 BP Location: Right arm Patient Position: Sitting BP CUFF SIZE: Adult Large Pulse: 74 Resp: 19 SpO2: 98% Weight: 177 lb 9.6 oz (80.6 kg) Height: 5' (1.524 m) General: well developed and well nourished female. No acute distress. Eyes: no icterus Ears/Nose/Mouth: Moist, no discharge Neck: no thyroid megaly or lymphadenopathy Heart: regular rate and regular rhythm; no rubs or gallops. no murmur. Lungs: clear to auscultation GI: normal active bowel sounds; soft and non-tender abdomen : not performed Extremities: Normal bilateral Musculoskeletal: full range of motion. Ambulates without limitation. Neurologic: alert and oriented x4; without gross abnormalities. Psychiatric: pleasant with no SI or HI. Skin: device wound appears healed without infection or hematoma. LABS / DATA: CBC WBC x10^3 (/CMM) Date Value 10/09/2003 10.5 WBC (10*3/L) Date Value 08/15/2019 7.62 RBC x10^6 (/CMM) Date Value 10/09/2003 3.96 RBC (10*6/L) Date Value 08/15/2019 3.59 (L) PLT x10^3 (/CMM) Date Value 10/09/2003 260 PLT (10*3/L) Date Value 08/15/2019 229 HGB Date Value 08/15/2019 11.5 g/dL (L) 10/09/2003 12.3 G/DL HCT (%) Date Value 08/15/2019 35.6 (L) 10/09/2003 36.4 CMP NA Date Value 08/15/2019 141 mmol/L 10/09/2003 139 MMOL/L K Date Value 08/15/2019 5.2 mmol/L (H) 10/09/2003 4.3 MMOL/L CALCIUM Date Value 08/15/2019 9.4 mg/dL 10/09/2003 8.4 MG/DL (L) CL Date Value 08/15/2019 106 mmol/L 10/09/2003 105 MMOL/L BUN Date Value 08/15/2019 61 mg/dL (H) 10/09/2003 24 MG/DL (H) CREATININE Date Value 08/15/2019 1.72 mg/dL (H) 10/09/2003 1.12 MG/DL GLUCOSE Date Value 08/15/2019 250 mg/dL (H) 10/09/2003 137 MG/DL (H) CO2 TOTAL Date Value 08/15/2019 28 mmol/L 10/09/2003 23 MMOL/L ALBUMIN Date Value 08/15/2019 4.1 g/dL 10/04/2003 3.3 G/DL (L) T PROTEIN Date Value 08/15/2019 7.6 g/dL 10/04/2003 6.8 G/DL TOTAL BILI Date Value 08/15/2019 0.2 mg/dL 10/04/2003 <0.1 MG/DL (A) BILI UNCON (mg/dL) Date Value 01/19/2019 0.1 BILI CONJ (mg/dL) Date Value 01/19/2019 0.0 ALT(SGPT) (U/L) Date Value 06/26/2018 21 10/04/2003 20 ALTv (U/L) Date Value 08/15/2019 15 AST(SGOT) (U/L) Date Value 08/15/2019 19 10/04/2003 15 ALK PHOS (U/L) Date Value 08/15/2019 137 (H) 10/04/2003 127 (H) TSH: Recent Labs 10/28/18 1715 TSH 0.40* BNP NT-proBNP (pg/mL) Date Value 08/15/2019 1,170 (H) Troponins Recent Labs 12/09/18 0435 TROPNI 0.015 Impression: 74 YEAR OLD FEMALE with symptomatic atrial fibrillation, NICM, DM, CRI Recommendation(s): 1. Life style changes including, diet, exercise and Caffeine/ETOH restriction 2. Continue CHF meds 3. Continue anti coagulation and Toprol along with Digoxin 4. She has already been taken off Amiodarone in the past and has baseline elevated Cr, her anti arrhythmic options are not ideal 5. We discussed the procedure of atrial fibrillation ablation and she wishes to proceed with it, will schedule soon 6. Er warnings given Thank you for allowing us to participate in the care of your patient. Please feel free to contact us for any questions or if we can be of further assistance. Silverio Menendez MD 09/16/2019 12:00 PM documented in this encounter Plan of Treatment Date Type Specialty Care Team Description 11/14/2019 Nurse Visit Cardiology Visit, Adc Nurse 11/19/2019 Office Visit Endocrinology Diabetes & Duncan Castle MD [facility] [address] [place] [address] [phone] 01/12/2020 Office Visit Cardiology Sriram Heath M D [address] [place] [address] [place] [address] [phone] Health Maintenance Due Date Last Done Comments [...] this encounter Implants Implanted Type Area Machine Filler Device Shelf Model / Identifier Expiration Serial / Date Lot Defibrillator DEFIBRILLATOR Medtronic DT [id number] / [id number] / documented as of this encounter Results Not on filedocumented in this encounter Visit Diagnoses Diagnosis Paroxysmal atrial fibrillation - Primary Atrial fibrillation documented in this encounter Insurance Payer Benefit Plan / Subscriber ID Effective Phone Address T e Group [facility] [id number] 2019-Prese Me dicare Adv HEALTHCARE - MEDICARE nt HMO MANAGED MEDICARE ADVANTAGE (Home) [place] [address] documented as of this encounter Advance Directives Name Relationship Healthcare Agent Communication Relationship Marcella Schmitz Child Primary healthcare agent [phone] (Mobile) nadia [email or web address]
--- OUTSIDE RECORDS SUMMARY | 2019-11-08 13:43 | XMS REPORT | Summary of Care ---
:[address] [facility] - [facility] Address [address] [place], [place] [id number] Care Team Providers Name Role Phone Ortega Dorsey MD Epic Kaleidoscope Analyst [phone] Lauryn Moscoso MD Primary Care Provider Lauren Dickinson DO Field Operations Supervisor Reason for Visit (Routine) Status Reason Specialty Diagnoses / Procedures Referred By Babita lawrence Referred To Contact Closed Cardiology Diagnoses Chronic systolic heart failure Sriram Heath MD Procedures ECHO ROUTINE W/DOPPLER COLOR Preferred Location: [address] [place], [place] [address] Phone: Encounter Details Date Type Department Care Team Description 09/15/2019 Laboratory Only [facility] Sriram Heath M D [address] [place] [address] [address] [place] [address] Chronic systolic Cardiology- [facility], [facility] Echo Room 1 - heart failure [address] [place] [address], [address] [place] [address] Allergies No Known Allergiesdocumented as of this encounter (statuses as of 09/15/2019) Medications Medication Sig Dispensed Refills Start Date End Date Status Blood-Glucose Meter Check glucose 1 Each 0 07/03/2017 Active Kit once daily before breakfast; Diagnosis code E11.9 blood sugar diagnostic Check glucose 50 Strip 11 07/03/2017 Active (BLOOD GLUCOSE TEST) once daily strip before breakfast; Diagnosis code E11.9 Lancets [facility] Check glucose 50 Each 11 07/03/2017 Ac [...] tabletIndications: times daily. Chronic systolic heart failure Hospital, Clinic, or Other Ordered Dose Route Frequency Start Date End Date Status Facility Administered Medication sulfur hexafluoride 5 mL IV ONCE 09/15/2019 0 Ended microsphr (LUMASON) injection 5 mL documented as of this encounter (statuses as of 09/15/2019) Active Problems Problem Noted Date Spontaneous ecchymoses [...] as of this encounter (statuses as of 09/15/2019) Immunizations Name Administration Dates Next Due HEP [...] Sign Reading Time Taken Comments Blood Pressure 160/69 09/15/2019 10:44 AM CDT Pulse 81 09/15/2019 10:44 AM CDT Temperature - - Respiratory Rate - - Oxygen Saturation - - Inhaled Oxygen Concentration - - Weight 80.7 kg (178 lb) 09/15/2019 10:44 AM CDT Height 152.4 cm (5') 09/15/2019 10:44 AM CDT Body Mass Index 34.76 09/15/2019 10:44 AM CDT documented in this encounter Plan of Treatment Date Type Specialty Care Team Description 09/16/2019 Office Visit Cardiology Silverio Menendez MD [address] [place] [address]. [place] [address] 11/14/2019 Nurse Visit Cardiology Visit, Adc Nurse 11/19/2019 Office Visit Endocrinology Diabetes & Duncan Castle MD Metabolism [facility] [place] [address] [phone] 01/12/2020 Office Visit Cardiology Sriram Heath M D [address] [place] [address]75 15 [phone] Health Maintenance Due Date Last Done Comments [...] of this encounter Implants Implanted Type Area Wrapper Dipper Device Shelf Model / Identifier Expiration Serial / Date Lot Defibrillator DEFIBRILLATOR Medtronic DT BA1D1 / [id number] / documented as of this encounter Results Not on filedocumented in this encounter Visit Diagnoses Diagnosis Chronic systolic heart failure documented in this encounter Administered Medications Medication Order MAR Action Action Date Dose Rate Site sulfur hexafluoride microsphr Given 09/15/2019 10:59 AM CDT 5 mL (LUMASON) injection 5 mL 5 mL, Intravenous, ONCE, 1 dose, 09/15/19 at 1215, Routine, body team member approving Restricted medication: BLANCO GROSS documented in this encounter Insurance Payer Benefit Plan / Subscriber ID Effective Phone Address [facility] [id number] 2019-Prese Me javier [facility]ALTHCARE [facility] ADVANTAGE G (Home) [place] [address] documented as of this encounter Advance Directives Name Relationship Healthcare Agent Communication Relationship Marcella Schmitz Child Primary healthcare agent [phone] (Mobile) nadia [email or web address]
--- OUTSIDE RECORDS SUMMARY | 2019-11-08 13:43 | XMS REPORT | Summary of Care ---
:1945 Author Organization [facility] - [place] [id number] Care Team Providers Name Role Phone Ortega Dorsey MD General Store Manager [phone] Lauryn Moscoso MD Primary Care Provider Lauren Dickinson DO Overlock Sewing Machine Operator Reason for Visit Reason Comments New Patient Establish Care HFrEF s/p TRANSPORTATION MECHANIC-D, pAfib off a miodarone due to thyroid side effect (Routine) Status Reason Specialty Diagnoses / Procedures Referred By Babita lawrence Referred To Contact Closed Cardiology Diagnoses Atrial fibrillation, unspecified type Sriram Heath MD Procedures CONSULT CARDIAC EP/HEART RHYTHM CENTER [address] [facility] [address] [place], [place] [address] Phone: Encounter Details Date Type Department Care Team Description 09/16/2019 Office Visit [facility] Silverio Menendez MD Paroxysmal atrial Cardiology- [address] fibrillation (Primary [address] [facility], [address] [address] [place], [place] [phone] [address] [phone] Allergies No Known Allergiesdocumented as of this [...] coagulated and is shiela Toprol and Digoxin, TRANSPORTATION MECHANIC pacing is reduced due to atrial fibrillation, [...] file Gets together: Not on file Attends druze service: Not on file Active member of [...] Visit Endocrinology Diabetes & Duncan Castle MD [facility] [address] [place] [address] [phone] 01/12/2020 Office Visit Cardiology Sriram Heath M D [address] [place] [address] [place] [address]75 15 [phone] Health Maintenance Due Date Last Done Comments [...] of this encounter Implants Implanted Type Area Supply Chain Tech Device Shelf Model / Identifier Expiration Serial / Date Lot Defibrillator DEFIBRILLATOR Medtronic DT BA1D1 / [id number] / documented as of this encounter Results Not on filedocumented in this encounter Visit Diagnoses Diagnosis Paroxysmal atrial fibrillation - Primary Atrial fibrillation documented in this encounter Insurance Payer Benefit Plan / Subscriber ID Effective Phone Address T e Group [facility] [id number] 2019-Prese Me dicare Adv HEALTHCARE - MEDICARE nt HMO MANAGED MEDICARE ADVANTAGE (Home) [place] [address] documented as of this encounter Advance Directives Name Relationship Healthcare Agent Communication Relationship Marcella Schmitz Child Primary healthcare agent [phone] (Mobile) nadia [email or web address]
--- OUTSIDE RECORDS SUMMARY | 2019-11-08 13:44 | XMS REPORT | Summary of Care ---
:1945 Author Organization [place] [id number] Care Team Providers Name Role Phone Ortega Dorsey MD Tire Fixer [phone] Lauryn Moscoso MD Primary Care Provider Lauren Dickinson DO Training Director Reason for Visit Reason Comments Referral/consult Talk To Provider Talk To Nurse Encounter Details Date Type Department Care Team Description 09/23/2019 Telephone [facility] Silverio Menendez MD Referral/consult; Talk Cardiology[address] To Provider; Talk To [address] [place] [address], [address] [address] [place], [place] [phone] [address] [phone] Allergies No Known Allergiesdocumented as of this encounter (statuses as of 09/29/2019) Medications Medication Sig Dispensed Refills Start Date [...] as of this encounter (statuses as of 09/29/2019) Active Problems Problem Noted Date Spontaneous ecchymoses [...] as of this encounter (statuses as of 09/29/2019) Immunizations Name Administration Dates Next Due HEP [...] Assigned at Date Recorded Not on file COVID-19 Exposure Response Date Recorded In the last month, have you been in contact with No / Unsure 09/16/2019 10:54 AM CDT someone who was confirmed or suspected to have Coronavirus / COVID-19? documented as of this encounter Last Filed Vital Signs Not on filedocumented in this encounter Miscellaneous Notes Telephone Encounter - Viri Barriga RN - 09/29/2019 3:09 PM CDTCalled and spoke to patient daughter. She has multiple questions about procedure, risks, etc that need to be answered by MD. Advised that i will send her message to Dr Menendez to ask him to call dtr. She verbalized understanding. elephone Encounter - Gabby Birmingham - 09/29/2019 11:54 AM CDTSummary: REVIEW AND CLOSE This is being sent to you as part of [facility] Chart Maintenance. The encounter has been open 72 hours. Please review and close . Thank you Telephone Encounter - Esmer Parrish LVN - 09/26/2019 2:34 PM CDT Per last OV on 09/15 Ablation was discussed/recommended. Will route to Dr. Menendez. Marcella Schmitz () [phone] (H) Patient daughter Marcella is calling in behalf of her mother . She states she doesn't know which procedure and that is why she is calling, she wants to know all the details and if her mother really needs the procedure? elephone Encounter - Gabby Birmingham - 09/26/2019 11:29 AM CDTSummary: This is being sent to you as part of [facility] Chart Maintenance. The encounter has been open 72hours. Please review and close This is being sent to you as part of [facility] Chart Maintenance. The encounter has been open 72 hours. Please review and close elephone Encounter - Gabby Birmingham - 09/25/2019 7:00 PM CDTSummary: This is being sent to you as part of Epic Chart Maintenance This is being sent to you as part of [facility] Chart Maintenance. The encounter has been open 72 hours. Please review and close elephone Encounter - Gabino Birmingham - 09/25/2019 12:38 PM CDTPatient calling in regards to below encounter. Please call back. Telephone Encounter - Gabino [place] - 09/24/2019 8:22 AM CDTPt returning call in regards to below encounter, please call back. elephone Encounter - Gabby Birmingham - 09/23/2019 4:40 PM CDTEpriyanka Calvin is a 74 year old female Patient daughter Marcella is calling in behalf of her mother stating she needs to speak with the cardio nurse regarding a procedure her mom is going to have . She states she doesn't know which procedure and that is why she is calling, she wants to know all the details and if her mother really needs the procedure. documented in this encounter Plan of Treatment Date Type Specialty Care Team Description 11/14/2019 Nurse Visit Cardiology Visit, Adc Nurse 11/19/2019 Office Visit Endocrinology Diabetes & Duncan Castle MD [address] [address] 01/12/2020 Office Visit Cardiology Sriram Heath M D [address] [place] [address] 15 [phone] Health Maintenance Due Date Last Done Comments DTaP,Tdap,and Td Vaccines (1 - 1965 Tdap) COLON CANCER SCREENING FIT DNA 1996 EVERY 3 YEARS COLON CANCER SCREENING 1996 SIGMOIDOSCOPY EVERY 5 YEARS Zoster Recombinant Vaccine 1996 (SHINGRIX) (1 of 2) Medicare Wellness Visit 2011 Osteoporosis Screening 2011 PNEUMOCOCCAL VACCINES 65+ (2 of 2 02/20/2016 02/19/2015, - PPSV23) Breast Cancer Screening 07/09/2019 07/08/2018 (MAMMOGRAM) EYE EXAM 08/06/2019 08/05/2018, 06/22/2017, 06/22/2017, Additional history exists INFLUENZA VACCINE (#1) 2019 COLON CANCER SCREENING ANNUAL 11/12/2019 11/11/2018, 2017 FIT/FOBT FOOT EXAM 01/07/2020 01/06/2019, 01/06/2019, 06/05/2018, Additional history exists Depression Screening 01/15/2020 01/14/2019 HgA1C 02/12/2020 08/13/2019, 04/09/2019, 12/04/2018, Additional history exists COLONOSCOPY 02/20/2020 02/19/2010 (Previously completed) Colorectal Cancer Screening 02/20/2020 URINE MICROALBUMIN 04/09/2020 04/09/2019, 06/17/2018, 06/21/2017 LDL-C 07/17/2020 07/18/2019, 06/17/2018, 06/21/2017, Additional history exists CREATININE (SERUM) 08/14/2020 08/15/2019, 06/30/2019, 01/19/2019, Additional history exists HEPATITIS C (HCV) SCREEN Completed 06/21/2017 documented as of this encounter Implants Implanted Type Area Software Installer Device Shelf Model / Identifier Expiration Serial / Date Lot Defibrillator DEFIBRILLATOR Medtronic DT BA1D1 / [id number] / documented as of this encounter Results Not on filedocumented in this encounter Insurance Payer Benefit Plan / Subscriber ID Effective Phone Address T ype Group Dates [facility] [id number] 2019-Nuria javier Adv HEALTHCARE - MEDICARE HMO MANAGED MEDICARE ADVANTAGE documented as of this encounter Advance Directives Name Relationship Healthcare Agent Communication Relationship Marcella Schmitz Child Health Care Agent [email or web address] [email or web address]
--- OUTSIDE RECORDS SUMMARY | 2019-11-08 13:44 | XMS REPORT | Summary of Care ---
:1945 Author Organization [place] [id number] Care Team Providers Name Role Phone Ortega Dorsey MD Payment Processor [phone] Lauryn Moscoso MD Primary Care Provider Lauren Dickinson DO Hydrodynamics Teacher Reason for Visit Reason Comments Talk To Nurse Encounter Details Date Type Department Care Team Description 09/17/2019 Telephone [facility] Cardiology- Silverio Menendez MD Talk To Nurse [address] [place] [address] [address] [place] [address] [phone] Allergies No Known Allergiesdocumented as of this [...] Encounter - Viri Barriga RN - 09/29/2019 3:38 PM CDTDuplicate encounter. See encounter 8/lectronically signed by Viri Barriga RN at 09/29/2019 3:38 PM CDTTelephone Encounter - Nicole Hunt - 09/23/2019 2:43 PM CDTPatients daughter calling back to speak with nurse. Advised I'd have the nurse return her call and she stated she'd keep the phone next to her. elephone Encounter - Viri Barriga RN - 09/23/2019 10:43 AM CDTAttempted to call patient daughter. No answer. Message left to return call to clinic. Telephone Encounter - Yasmeen Kathleen - 09/22/2019 11:38 AM CDTPatient's daughter is calling to speak to nurse regarding last office visit. Stated patient still has questions in regards to plan of care and possible surgery. Please call Anahi back at [phone] signed by Yasmeen Kathleen at 09/22/2019 11:38 AM CDTTelephone Encounter - Danae Sarmiento - 09/19/2019 11:33 AM CDTPatient's daughter calling asking to speak to a nurse about the HUI. Call back [phone] signed by Danae Sarmiento at 09/19/2019 11:37 AM CDTTelephone Encounter - Judy Covarrubias - 09/17/2019 3:28 PM CDTPatient's daughter is calling to speak to nurse regarding last office visit. Stated patient still has questions in regards to plan of care and possible surgery. Please call Anahi back at [phone]. documented in this encounter Plan of Treatment Date Type Specialty Care Team Description 11/14/2019 Nurse Visit Cardiology Visit, Adc Nurse 11/19/2019 Office Visit Endocrinology Diabetes & Duncan Castle MD Metabolism [address] [place] [address] 01/12/2020 Office Visit Cardiology Sriram Heath M D [address] [place] [address] 15 Health Maintenance Due Date Last Done Comments [...] of this encounter Implants Implanted Type Area Chemical Laboratory Tester Device Shelf Model / Identifier Expiration Serial / Date Lot Defibrillator DEFIBRILLATOR Medtronic DT BA1D1 / [id number] / documented as of this encounter Results Not on filedocumented in this encounter Insurance Payer Benefit Plan / Subscriber ID Effective Phone Address T ype Group Dates [facility] [id number] 2019-Presquinten javier [facility] HEALTHCARE - [facility]IC[facility] documented as of this encounter Advance Directives Name Relationship Healthcare Agent Communication Relationship Marcella Schmitz Child Health Care Agent [email or web address]
--- OUTSIDE RECORDS SUMMARY | 2019-11-08 13:44 | XMS REPORT | Summary of Care ---
:1945 Author Organization [facility] Address [address] [place], [place] [address] Care Team Providers Name Role Phone Ortega Dorsey MD Lapel Baster [phone] Lauryn Moscoso MD Primary Care Provider Lauren Dickinson DO Chief Of Hospital Medicine Reason for Visit Reason Comments Results Encounter Details Date Type Department Care Team Description 09/16/2019 Telephone [facility] Cardiology- Guille Heath MD Results [place] [address] [facility] [address] [facility], [address] [place] [address] [place] [address] [phone] Allergies No Known Allergiesdocumented as of this encounter (statuses as of 09/19/2019) Medications Medication Sig Dispensed Refills Start Date [...] as of this encounter (statuses as of 09/19/2019) Active Problems Problem Noted Date Spontaneous ecchymoses [...] as of this encounter (statuses as of 09/19/2019) Immunizations Name Administration Dates Next Due HEP [...] Visit Endocrinology Diabetes & Duncan Castle MD [facility] [address] [place] [address] [phone] 01/12/2020 Office Visit Cardiology Sriram Heath M D [address] [place] [address] [address] [place] [address] [phone] Health Maintenance Due Date Last Done Comments [...] of this encounter Implants Implanted Type Area Building Rental Superintendent Device Shelf Model / Identifier Expiration Serial / Date Lot Defibrillator DEFIBRILLATOR Medtronic DT BA1D1 / [id number] / documented as of this encounter Results Not on filedocumented in this encounter Insurance Payer Benefit Plan / Subscriber ID Effective Phone Address T ype Group Dates [facility]/AAR[facility] Juan [id number] 2019-Prese Me javier [facility] HEALTHCARE - [facility] documented as of this encounter Advance Directives Name Relationship Healthcare Agent Communication Relationship Marcella Schmitz Child Primary healthcare agent nadia [email or web address]
--- OUTSIDE RECORDS SUMMARY | 2019-11-08 13:44 | XMS REPORT | Summary of Care ---
:1945 Author Organization [facility] - Health Address [address] [place], [place] [address] Care Team Providers Name Role Phone WillianOrtega Tayler SQUIRES Fruit And Vegetable Classer [phone] Lauryn Moscoso MD Primary Care Provider Lauren Dickinson DO Control Board Operator Encounter Details Date Type Department Care Team Description 10/01/2019 Orders Only [facility] Doctor Unassigned, [address] [facility] [place] [address] Allergies No Known Allergiesdocumented as of this encounter (statuses as of 10/03/2019) Medications Medication Sig Dispensed Refills Start Date [...] as of this encounter (statuses as of 10/03/2019) Active Problems Problem Noted Date Spontaneous ecchymoses [...] as of this encounter (statuses as of 10/03/2019) Immunizations Name Administration Dates Next Due HEP [...] Diabetes & Duncan Castle MD Metabolism [address] [place] [address] 01/12/2020 Office Visit Cardiology Sriram Heath M D [address] [place] [address] [place] [address] [phone] Health Maintenance Due Date Last Done Comments [...] of this encounter Implants Implanted Type Area Parking Enforcer Device Shelf Model / Identifier Expiration Serial / Date Lot Defibrillator DEFIBRILLATOR Medtronic DT BA1D1 / [id number] / documented as of this encounter Procedures Procedure Name Priority Date/Time Associated Diagnosis Comme nts AUTHORIZATION FOR RELEASE Routine 10/01/2019 12:01 AM OF PHI CDT documented in this encounter Results Not on filedocumented in this encounter Insurance Payer Benefit Plan / Subscriber ID Effective Phone Address T ype Group Dates [facility] [id number] 2019-Presquinten javier [facility] - MEDICARE nt O MANAGED MEDICARE ADVANTAGE documented as of this encounter Advance Directives Name Relationship Healthcare Agent Communication Relationship Marcella Schmitz Child Health Care Agent [phone] (Home)nadia [email or web address]
--- OUTSIDE RECORDS SUMMARY | 2019-11-08 13:44 | XMS REPORT | Summary of Care ---
:1945 Author Organization [facility] Address [address] [place], [place] [address] Care Team Providers Name Role Phone Ortega Dorsey MD Aircraft Motor Mechanic [phone] Lauryn Moscoso MD Primary Care Provider Lauren Dickinson DO Color Print Inspector Reason for Visit Reason Comments Assessment Encounter Details Date Type Department Care Team Description 09/18/2019 Telephone [facility] Pediatric and Kylah Casillas MD Assessment Adult Primary Care- [address] [address] [place] [address], [address] [place] [address] Allergies No Known Allergiesdocumented as of this encounter (statuses as of 09/18/2019) Medications Medication Sig Dispensed Refills Start Date [...] as of this encounter (statuses as of 09/18/2019) Active Problems Problem Noted Date Spontaneous ecchymoses [...] as of this encounter (statuses as of 09/18/2019) Immunizations Name Administration Dates Next Due HEP [...] Endocrinology Diabetes & Duncan Castle MD Metabolism [address] [place] [address] [phone] 01/12/2020 Office Visit Cardiology Sriram Heath M D [address] [place] [address] [place] [address] [phone] Health Maintenance Due Date Last Done Comments [...] of this encounter Implants Implanted Type Area Flumer Device Shelf Model / Identifier Expiration Serial / Date Lot Defibrillator DEFIBRILLATOR Medtronic DT BA1D1 / [id number] / documented as of this encounter Results Not on filedocumented in this encounter Insurance Payer Benefit Plan / Subscriber ID Effective Phone Address T ype Group Dates [facility] [id number] 2019-Prese Me javier Adv HEALTHCARE - MEDICARE nt O MANAGED MEDICARE ADVANTAGE documented as of this encounter Advance Directives Name Relationship Healthcare Agent Communication Relationship Marcellaahsan Schmitz Child Primary healthcare agent [email or web address] [email or web address]
--- OUTSIDE RECORDS SUMMARY | 2019-11-08 13:45 | XMS REPORT | Summary of Care ---
:1945 Author Organization [facility] Address [address] [place], [place] [address] Care Team Providers Name Role Phone Ortega Dorsey MD Bear Keeper [phone] Lauryn Moscoso MD Primary Care Provider Lauren Dickinson DO Push Connector Assembler Reason for Visit Reason Comments Assessment Encounter Details Date Type Department Care Team Description 10/08/2019 Telephone [facility] Family Medicine Kylah Mart MD Assessment - [address] king [place] [address] [place] [address] [phone] Allergies No Known Allergiesdocumented as of this encounter (statuses as of 10/09/2019) Medications Medication Sig Dispensed Refills Start Date [...] Chronic combined systolic and diastolic heart failure XARELTO 15 mg TAKE 1 TABLET BY [...] as of this encounter (statuses as of 10/09/2019) Active Problems Problem Noted Date Spontaneous ecchymoses [...] as of this encounter (statuses as of 10/09/2019) Immunizations Name Administration Dates Next Due HEP [...] Telephone Encounter - Viri Barriga RN - 10/09/2019 4:23 PM CDTSee previous encounter elephone Encounter - Gabbie Moya - 10/09/2019 3:26 PM CDTPlease assist elephone Encounter - Arianna Jacome - 10/08/2019 1:17 PM CDTSpouse is wanting to speak to nurse in regards to DR ADAM , COLDFUSION. Spouse would like to mert Hayden in regards to concerns with patient is not feeling better. documented in this encounter Plan of Treatment Date Type Specialty Care Team Description 11/14/2019 Nurse Visit Cardiology Visit, Adc Nurse 11/19/2019 Office Visit Endocrinology Diabetes & Tin, Duncan bhatt MD [address] [place] [address] [phone] 01/12/2020 Office Visit Cardiology Sriram Heath M D [address] [place] [address] 15 Health Maintenance Due Date Last Done [...] of this encounter Implants Implanted Type Area Director Of Assessment Device Shelf Model / Identifier Expiration Serial / Date Lot Defibrillator DEFIBRILLATOR Medtronic DT BA1D1 / [id number] / documented as of this encounter Results Not on filedocumented in this encounter Insurance Payer Benefit Plan / Subscriber ID Effective Phone Address T ype Group Dates [facility] [id number] 2019-Nuria Langford HEALTHCARE - MEDICARE HMO MANAGED MEDICARE ADVANTAGE documented as of this encounter Advance Directives Name Relationship Healthcare Agent Communication Relationship Marcella Schmitz Child Health Care Agent nadia [email or web address]
--- OUTSIDE RECORDS SUMMARY | 2019-11-08 13:45 | XMS REPORT | Summary of Care ---
:1945 Author Organization [facility] Address [address] [place] [address] Care Team Providers Name Role Phone Ortega Dorsey MD Wet Process Miller Head Assistant [phone] Lauryn Moscoso MD Primary Care Provider Lauren Dickinson DO Cinder Crusher Operator Reason for Visit Reason Comments Procedure EPS+/-ablation Encounter Details Date Type Department Care Team Description 10/21/2019 Telephone [facility] Silverio Menendez MD Procedure Electrophysiology [address] (EPS+/-ablation) [facility]. [facility] Branch [facility] [address] [place] [address] [address], [address] [place] [address] [phone] Allergies No Known Allergiesdocumented as of this encounter (statuses as of 10/21/2019) Medications Medication Sig Dispensed Refills Start Date [...] tabletIndications: times daily. Chronic systolic heart failure metoprolol succinate Take 1 tablet by 180 tablet 0 10/09/2019 Active XL 100 mg 24 hr mouth 2 (two) tabletIndications: times daily. Essential hypertension Please note dosage change documented as of this encounter (statuses as of 10/21/2019) Active Problems Problem Noted Date Spontaneous ecchymoses [...] as of this encounter (statuses as of 10/21/2019) Immunizations Name Administration Dates Next Due HEP [...] Assigned at Date Recorded Not on file documented as of this encounter Last Filed Vital Signs Not on filedocumented in this encounter Miscellaneous Notes Telephone Encounter - Hanna Kelly - 10/21/2019 2:24 PM CDTA call was placed to schedule an EPS+/-ablation with Dr. Menendez for 11/17/19. Left a message for the patient's daughter to call back at [phone]. documented in this encounter Plan of Treatment Date Type Specialty Care Team Description 11/14/2019 Laboratory Only Clinical Medical Laboratory Only, Adc Test 11/14/2019 Nurse Visit Cardiology Visit, Adc Nurse 11/17/2019 Appointment Cardiac Electrophysiology Silverio Menendez MD [address] [place] [phone] Anesthesia-Lissy, Ep Lab Outpt-Lissy, Ep Lab 11/17/2019 Appointment Echocardiograph Pc, [facility] Echo Room 3 - 11/19/2019 Office Visit Endocrinology Diabetes & Castle, Duncan bhatt MD [address] [place] [address] [phone] 01/12/2020 Office Visit Cardiology Sriram Heath M D [address] [place] [address] [address] [place], [place] [address] [phone] Health Maintenance Due Date Last Done Comments [...] of this encounter Implants Implanted Type Area Manager Of Organizational Development Device Shelf Model / Identifier Expiration Serial / Date Lot Defibrillator DEFIBRILLATOR Medtronic DT BA1D1 / [id number] / documented as of this encounter Results Not on filedocumented in this encounter Insurance Payer Benefit Plan / Subscriber ID Effective Phone Address T ype Group Dates [facility] [id number] 2019-Nuria javier [facility] HEALTHCARE [facility] documented as of this encounter Advance Directives Name Relationship Healthcare Agent Communication Relationship Marcella Schmitz Child Health Care Agent nadia [email or web address]
--- OUTSIDE RECORDS SUMMARY | 2019-11-08 13:45 | XMS REPORT | Summary of Care ---
:1945 Author Organization [facility] Address [address] [place], [place] [id number] Care Team Providers Name Role Phone Ortega Dorsey MD Automatic Spooler Operator [phone] Lauryn Moscoso MD Primary Care Provider Lauren Dickinson DO Coating Machine Feeder Reason for Visit Reason Comments Assessment Encounter Details Date Type Department Care Team Description 10/24/2019 Telephone [facility] Kylah Mart MD Assessment - [address] king [facility] [place] [address] [place] [address] [phone] Allergies No Known Allergiesdocumented as of this encounter (statuses as of 10/24/2019) Medications Medication Sig Dispensed Refills Start Date [...] as of this encounter (statuses as of 10/24/2019) Active Problems Problem Noted Date Spontaneous ecchymoses [...] as of this encounter (statuses as of 10/24/2019) Immunizations Name Administration Dates Next Due HEP [...] this encounter Miscellaneous Notes Telephone Encounter - Kylah Moscoso MD - 10/24/2019 4:41 PM CDTNoted and thanks. WAC elephone Encounter - Lizeth King LVN - 10/24/2019 4:34 PM CDTI called Anahi back there was no answer I left a message that the patient will need to be seen either by Dr Moscoso at her next available appointment or she could go to Urgent Care tomorrow, I advisedto call back to make either appointment, notified Dr Moscoso. elephone Encounter - Bridget Cervantes - 10/24/2019 1:42 PM CDTDOP is calling stating that the patient has been having neck since last weekend and is stating that the patient is unable to sleep. DOP is requesting a call back to discuss further with the nurse. documented in this encounter Plan of Treatment Date Type Specialty Care Team Description 11/14/2019 Laboratory Only Clinical Medical Laboratory Only, Adc Test 11/14/2019 Nurse Visit Cardiology Visit, Adc Nurse 11/17/2019 Appointment Cardiac Electrophysiology Silverio Menendez MD [address] [place] [phone] Anesthesia-Lissy, Ep Lab Outpt-Lissy, Ep Lab 11/17/2019 Appointment Echocardiograph Pc, [facility] Echo Room 3 - 11/19/2019 Office Visit Endocrinology Diabetes & Castle, Duncan bhatt MD [address] [address] [phone] 01/12/2020 Office Visit Cardiology Sriram Heath M D [address] [place] [address] [place] [address] [phone] Health Maintenance Due Date Last Done Comments [...] encounter Implants Implanted Type Area Director Of Women'S Services Device Shelf Model / Identifier Expiration Serial / Date Lot Defibrillator DEFIBRILLATOR Medtronic DT BA1D1 / [id number] / documented as of this encounter Results Not on filedocumented in this encounter Insurance Payer Benefit Plan / Subscriber ID Effective Phone Address T e Group [facility] [id number] 2019-Nuria javier [facility] HEALTHCARE - MEDICARE Critical access hospitalO MANAGED MEDICARE ADVANTAGE documented as of this encounter Advance Directives Name Relationship Healthcare Agent Communication Relationship Marcella Schmitz Child Health Care Agent nadia [email or web address]
--- OUTSIDE RECORDS SUMMARY | 2019-11-08 13:45 | XMS REPORT | Summary of Care ---
:1945 Author Organization [facility] Address [address] [place], [place] [address] Care Team Providers Name Role Phone Ortega Dorsey MD Tank Cleaner [phone] Lauryn Moscoso MD Primary Care Provider Lauren Dickinson DO Sintering Press Operator Reason for Referral (Routine) Status Reason Specialty Diagnoses / Referred By Contact Refe rred To Procedures Contact New Request Diagnoses Persistent atrial fibrillation Silverio Menendez MD Procedures Electrophysiology Lab Request for Service (Electrophysiology Use Only) [address] [place] [phone] Phone: MRI/CAT Scan (Routine) Status Reason Specialty Diagnoses / Referred By Referred To Procedures Contact Contact New Request Diagnostic Diagnoses Persistent atrial fibrillation Silverio Menendez MD Radiology Procedures CT HEART W CONTRAST STRUCTURES ONLY (NON CORONARY) [address] [place] [phone] (Routine) Status Reason Specialty Diagnoses / Referred By Referred To Procedures Contact Contact New Request Cardiology Diagnoses Persistent atrial fibrillation Silverio Menendez MD Procedures TRANSESOPHAGEAL ECHO [address] [place] [phone] Reason for Visit Reason Comments Orders Encounter Details Date Type Department Care Team Description 10/09/[address] [facility] Silverio Menendez MD Orders Cardiology-[address] [place] [address] [place] [address], [address] [place], [place] [address] 99-3041 [place] [address] Allergies No Known Allergiesdocumented as of this [...] Endocrinology Diabetes & Duncan Castle MD Metabolism [address] [place] [address] [phone] 01/12/2020 Office Visit Cardiology Sriram Heath M D [address] [place] [address] [place] [address]75 15 Name Type Priority Associated Diagnoses Order S chedule CBC W/O DIFF LAB Routine Persistent atrial Expected: fibrillation 10/09/2019, Exp ires: 10/08/2020 BASIC METABOLIC PANEL LAB Routine Persistent atrial E xpected: ([id number])(NA, K, CL, CO2, fibrillation 09/20, Expires: GLUCOSE, BUN, 10/08/2020 CREATININE, CA) CT HEART W CONTRAST IMAGING Routine Persistent atrial Exp ected: STRUCTURES ONLY (NON fibrillation 020, Expires: CORONARY) 10/08/2020 Health Maintenance Due Date Last Done Comments [...] of this encounter Implants Implanted Type Area Microbiology Technician Device Shelf Model / Identifier Expiration Serial / Date Lot Defibrillator DEFIBRILLATOR Medtronic DT BA1D1 / [id number] / documented as of this encounter Results Not on filedocumented in this encounter Visit Diagnoses Diagnosis Persistent atrial fibrillation - Primary Atrial fibrillation documented in this encounter Insurance Payer Benefit Plan / Subscriber ID Effective Phone Address T ype Group Dates [facility] [id number] 2019-Prese Me javier Adv HEALTHCARE [facility] documented as of this encounter Advance Directives Name Relationship Healthcare Agent Communication Relationship Marcella Schmitz Child Health Care Agent nadia [email or web address] .[employer]
--- OUTSIDE RECORDS SUMMARY | 2019-11-08 13:45 | XMS REPORT | Summary of Care ---
:1945 Author Organization [place] [id number] Care Team Providers Name Role Phone Ortega Dorsey MD Repair Department Supervisor [phone] Lauryn Moscoso MD Primary Care Provider Lauren Dickinson DO Fractionating Still Operator Reason for Visit Reason Comments Referral/consult Encounter Details Date Type Department Care Team Description 10/08/2019 Telephone [facility]- Silverio Menendez MD Referral/consult [address] [place] [address] [address] [address] [place] [address] [phone] Allergies No Known Allergiesdocumented as of this [...] failure XARELTO 15 mg TAKE 1 TABLET 30 [...] times daily. Chronic systolic heart failure metoprolol Take 1 tablet 180 tablet 0 10/09/2019 Act fernando succinate XL 100 mg by mouth 2 24 hr (two) times tabletIndications: daily. Please Essential note dosage hypertension change metoprolol Take 1 tablet 270 tablet 1 08/06/2019 Dis continued succinate XL 50 mg by mouth 2 0 24 hr (two) times tabletIndications: daily. Essential hypertension documented as of this [...] this encounter Miscellaneous Notes Telephone Encounter - Silverio Menendez MD - 10/09/2019 6:03 PM CDTIts ordered elephone Encounter - Viri Barriga RN - 10/09/2019 4:18 PM CDTCalled and informed patient of recommendations. He verbalized understanding. He states that patient is feeling ok right now but she was feeling bad earlier and almost fell on him. He states that they are ready to get the ablation done. elephone Encounter - Sriram Heath MD - 10/09/2019 3:40 PM CDTIncrease metoprolol to 100 mg BID elephone Encounter - Sherri Anderson RN - 10/09/2019 2:55 PM CDTPatient states that she is "feeling bad." She is dizzy, her heart is racing at times, fell yesterday but her caught her, her blood pressure is high 160/71. Patient's says that she is taking all her blood pressure medicine as prescribed. He is requesting an increase of her meds to help with the blood pressure. Informed the patient and her that I would send a message to Dr. Heath because Dr. Menendez is out of the office right now. He also wants to know when they can have the ablation done, but his is "really bad." Telephone Encounter - Arianna Jacome - 10/08/2019 12:46 PM CDTPlease view phone encounter on 09/23/19. Spouse states patient is not doing good and is checking the status of the referral. documented in this encounter Plan of Treatment Date Type Specialty Care Team Description 11/14/2019 Nurse Visit Cardiology Visit, Adc Nurse 11/19/2019 Office Visit Endocrinology Diabetes & Duncan Castle MD Metabolism [address] [place], [place] [address] 01/12/2020 Office Visit Cardiology Sriram Heath M D [address] [facility] [address] [place] [address] [phone] Health Maintenance Due Date Last Done Comments [...] of this encounter Implants Implanted Type Area Flat Surfacer Jewel Device Shelf Model / Identifier Expiration Serial / Date Lot Defibrillator DEFIBRILLATOR Medtronic DT BA1D1 / [id number] / documented as of this encounter Results Not on filedocumented in this encounter Visit Diagnoses Diagnosis Essential hypertension Unspecified essential hypertension documented in this encounter Insurance Payer Benefit Plan / Subscriber ID Effective Phone Address T ype Group Dates [facility] [id number] 2019-Nuria javier Adv HEALTHCARE - MEDICARE nt HMO MANAGED MEDICARE ADVANTAGE documented as of this encounter Advance Directives Name Relationship Healthcare Agent Communication Relationship Marcella Schmitz Child Health Care Agent nadia [email or web address]
--- OUTSIDE RECORDS SUMMARY | 2019-11-08 13:46 | XMS REPORT | Summary of Care ---
:1945 Author Organization [facility] Address [address] [place], [place] [address] Care Team Providers Name Role Phone Ortega Dorsey MD Premium Representative [phone] Lauryn Moscoso MD Primary Care Provider Lauren Dickinson DO Instrument Designer Reason for Visit Reason Comments Assessment Encounter Details Date Type Department Care Team Description 10/24/2019 Telephone [facility] Family Medicine Kylah Mart MD Assessment - [address] king [facility] [place] [place] [address] [place] [address] [phone] Allergies No Known Allergiesdocumented as of this [...] this encounter Miscellaneous Notes Telephone Encounter - Lizeth King LVN - 10/24/2019 4:50 PM SILVIATGrajose called back regarding Mrs. Simpson, her neck has been painful for a while and she has been seeing a chiropractor but now the pain is worse, I advised appointment. She wants to be seen by Dr Moscoso, appointment made for Sunday and advise if pain worsens before appointment take her to the ER so that they can go ahead and run tests and treat. Anahi verbalized understanding. elephone Encounter - Kylah Moscoso MD - 10/24/2019 [...] Treatment Date Type Specialty Care Team Description 10/28/2019 Office Visit Family Medicine Kylah Moscoso MD [address] [place] [phone] 11/14/2019 Laboratory Only Clinical Medical Laboratory Only, Adc Test 11/14/2019 Nurse Visit Cardiology Visit, Adc Nurse 11/17/2019 Appointment Cardiac Electrophysiology Silverio Menendez MD [address] [place] [phone] Anesthesia-Lissy, Ep Lab Outpt-Lissy, Ep Lab 11/17/2019 Appointment Echocardiograph Pc, [facility] Echo Room 3 - 11/19/2019 Office Visit Endocrinology Diabetes & CastleDuncan MD [address] [address] [phone] 01/12/2020 Office Visit Cardiology Sriram Heath M D [address] [place] [address] 15 [phone] Health Maintenance Due Date Last Done Comments [...] of this encounter Implants Implanted Type Area Executive Coach Device Shelf Model / Identifier Expiration Serial / Date Lot Defibrillator DEFIBRILLATOR Medtronic DT BA1D1 / [id number] / documented as of this encounter Results Not on filedocumented in this encounter Insurance Payer Benefit Plan / Subscriber ID Effective Phone Address T ype Group Dates [facility] [id number] 2019-Nuria Langford HEALTHCARE - MEDICARE [facility] ADVANTAGE documented as of this encounter Advance Directives Name Relationship Healthcare Agent Communication Relationship Marcella Schmitz Child Health Care Agent nadia [email or web address]
--- OUTSIDE RECORDS SUMMARY | 2019-11-08 13:46 | XMS REPORT | Summary of Care ---
:1945 Author Organization [facility] Address [address] [place], [place] [address] Care Team Providers Name Role Phone Willian Lucillerj Lester MD Lighting Specialist [phone] Lauryn Moscoso MD Primary Care Provider Lauren Dickinson DO Civil Engineer'S Aide Encounter Details Date Type Department Care Team Description 10/24/2019 Orders Only [facility] Doctor Unassigned, No [address] [facility] [place] [address] Allergies No Known Allergiesdocumented as of this [...] Office Visit Family Medicine Kylah Moscoso MD [address] [place] [phone] 11/14/2019 Laboratory Only Clinical Medical Laboratory Only, Adc Test 11/14/2019 Nurse Visit Cardiology Visit, Adc Nurse 11/17/2019 Appointment Cardiac Electrophysiology Silverio Menendez MD [address] [place] [phone] Anesthesia-Lissy, Ep Lab Outpt-Lissy, Ep Lab 11/17/2019 Appointment Echocardiograph Pc, [facility] Echo Room 3 - 11/19/2019 Office Visit Endocrinology Diabetes & CastleDuncan MD Metabolism [address] [place] [address] [phone] 01/12/2020 Office Visit Cardiology Sriram Heath M D [address] [place] [address] [place], [place] [address] [phone] Health Maintenance Due Date Last Done Comments [...] of this encounter Implants Implanted Type Area Counter Intelligence Agent Device Shelf Model / Identifier Expiration Serial / Date Lot Defibrillator DEFIBRILLATOR Medtronic DT BA1D1 / [id number] / documented as of this encounter Procedures Procedure Name Priority Date/Time Associated Diagnosis Comme nts CONSENT/REFUSAL FOR Routine 10/24/2019 7:18 PM CDT DIAGNOSIS AND TREATMENT documented in this encounter Results Not on filedocumented in this encounter Insurance Payer Benefit Plan / Subscriber ID Effective Phone Address T ype Group Dates [facility] [id number] 2019-Prese Me javier Adv HEALTHCARE - MEDICARE nt O MANAGED MEDICARE ADVANTAGE documented as of this encounter Advance Directives Name Relationship Healthcare Agent Communication Relationship Marcella Schmitz Child Health Care Agent nadia [email or web address]
--- OUTSIDE RECORDS SUMMARY | 2019-11-08 13:46 | XMS REPORT | Summary of Care ---
:1945 Author Organization [facility] Address [address] [place] [id number] Care Team Providers Name Role Phone Ortega Dorsey MD [place] [phone] Lauryn Moscoso MD Primary Care Provider Lauren Dickinson DO Foster Winder Reason for Referral (Routine) Status Reason Specialty Diagnoses / Referred By Referred To Procedures Contact Contact New Request Physical Therapy Diagnoses Chronic neck pain Spondylosis of cervical spine Anterolisthesis [place], Procedures CONSULT/REFERRAL PHYSICAL THERAPY Kylah Combs MD [address] [place] [address] [place] [phone] (Routine) Status Reason Specialty Diagnoses / Referred By Referred To Procedures Contact Contact New Request Public Health & Diagnoses Referral of patient [place] General Preventive Procedures CONSULT/REFERRAL MEDICARE ANNUAL WELLNESS VISIT Kylah Combs MD [address] [place] [address] Reason for Visit Reason Comments Neck Pain Encounter Details Date Type Department Care Team Description 10/28/2019 Office Visit [facility] Family Kylah Moscoso lenora neck pain (Primary Dx); Medicine - Jason Combs MD Spondylosis of cervical spine; [address] [place] [address] [address]; Drive [place], [place] [phone] Allergies No Known Allergiesdocumented as of this encounter (statuses as of 10/28/2019) Medications Medication Sig Dispensed Refills Start Date [...] daily. Essential hypertension Please note dosage change butalbital-acetaminoph Take 1 tablet by 20 tablet 0 10/24/2019 Active en-caff 50-325-40 mg mouth every 4 tabletIndications: (four) hours as Headache disorder needed for Pain (scale 7-10). predniSONE 20 mg Take 3 tablets 18 tablet 0 10/24/2019 Active tabletIndications: ESR by mouth daily. raised cephALEXin (KEFLEX) Take 1 capsule 10 capsule 0 10/24/2019 Active 500 mg by mouth 2 (two) capsuleIndications: times daily. Acute cystitis without hematuria tiZANidine 2 mg Take 1 tablet by 60 tablet 0 10/28/2019 Active tabletIndications: mouth 2 (two) Chronic neck pain times daily as needed (muscle pain or spasm). documented as of this encounter (statuses as of 10/28/2019) Active Problems Problem Noted Date Spontaneous ecchymoses [...] as of this encounter (statuses as of 10/28/2019) Immunizations Name Administration Dates Next Due HEP [...] been in contact with No / Unsure 10/28/2019 9:07 AM CDT someone who was confirmed or suspected to have Coronavirus / COVID-19? documented as of this encounter Last Filed Vital Signs Vital Sign Reading Time Taken Comments Blood Pressure 150/59 10/28/2019 9:08 pateint has not taken AM CDT medication yet Pulse 61 10/28/2019 9:08 AM CDT Temperature 36.1 C (97 F) 10/28/2019 9:08 AM CDT Respiratory Rate - - Oxygen Saturation - - Inhaled Oxygen - - Concentration Weight 81.2 kg (179 lb) 10/28/2019 9:08 AM CDT Height 152.4 cm (5') 10/28/2019 9:08 AM CDT Body Mass Index 34.96 10/28/2019 9:08 AM CDT documented in this encounter Patient Instructions Patient InstructionsDejah Guillory - 10/28/2019 9:30 AM CDT Patient Education Neck Exercises: Active Neck Rotation To start, lie on your back, knees bent and feet flat on the floor. Keep your ears, shoulders, and hips aligned, but dont press your lower back to the floor. Rest your hands on your pelvis. Breathe deeply and relax. Here are the steps for the active neck rotation: Use your neck muscles to turn your head to one side until you feel a stretch in the muscles. Hold [id number]. Then turn to the other side. [id number] on each side. Note: Keep your shoulders on the floor. Dont lift or tuck your chin as you turn your head. [employer] last reviewed this educational content on 12/20/[id number] [employer]. [address] [place] [address], [place] [address]. All rights reserved. This information is not intended as a substitute for professional medical care. Always follow your healthcare professional's instructions. documented in this encounter Progress Notes Kylah Moscoso MD - 10/28/2019 9:30 AM CDT CC: Chief Complaint Patient presents with Neck Pain HPI Teena Simpson is a 74 year old female who presents for neck pain. She is Czech- speaking and prefersher daughter to serve as detector car operator (declines use of a certified detector car operator). Neck Pain Pain location: Generalized neck Quality: Aching Pain radiates to: R arm Pain severity: Moderate Onset quality: Gradual Duration: years. Timing: Intermittent Progression: Waxing and waning (worsened lately) Chronicity: Chronic (recurrent) Context: not MVC and not recent injury Relieved by: None tried Worsened by: Nothing Ineffective treatments: None tried Associated symptoms: headaches (occipital) Associated symptoms: no bladder incontinence, no bowel incontinence, no chest pain, no fever, no legpain, no numbness, no paresis, no photophobia, no syncope, no tingling, no visual change, no weakness and no weight loss Risk factors comment: Spondylosis, anterolisthesis, and DDD of the C-spine shown on past imaging No Known Allergies Current Outpatient Medications on File Prior to Visit Medication Sig Dispense Refill [id number] 50-325-40 mg tablet Take 1 tablet by mouth every 4 (four) hours asneeded for Pain (scale 7-10). 20 tablet 0 cephALEXin (KEFLEX) 500 mg capsule Take 1 capsule by mouth 2 (two) times daily. 10 capsule 0 predniSONE 20 mg tablet Take 3 tablets by mouth daily. 18 tablet 0 metoprolol succinate XL 100 mg 24 hr tablet Take 1 tablet by mouth 2 (two) times daily. Please note dosage change 180 tablet 0 sacubitril-valsartan (ENTRESTO) 24-26 mg tablet Take 0.5 [...] BY MOUTH EVERY DAY 30 tablet 5 PHENYTOIN EXTENDED 100 mg capsule TAKE 1 [...] 50 Each 11 No current facility-administered medications on file prior to visit. Past Medical History: Diagnosis Date A-fib Abnormal [...] Financial resource strain: Not on file Food insecurity Worry: Not on file Inability: Not on file Transportation needs Medical: Not on file Non-medical: Not on file Tobacco Use Smoking status: Never Smoker Smokeless tobacco: Never Used Tobacco comment: exposed to passive smoke Substance and Sexual Activity Alcohol use: No Drug use: No Sexual activity: Not on file Lifestyle Physical activity Days per week: Not on file Minutes per session: Not on file Stress: Not on file Relationships Social connections Talks on phone: Not on file Gets together: Not on file Attends voodoo service: Not on file Active member of club or organization: Not on file Attends meetings of clubs or organizations: Not on file Relationship status: Not on file Intimate partner violence Fear of current or ex partner: Not on file Emotionally abused: Not on file Physically abused: Not on file Forced sexual activity: Not on file Other Topics Concern Not on file Social History Narrative Lives with retired Review of Systems Constitutional: Negative. Negative for fever and weight loss. HENT: Negative. Eyes: Negative. Negative for photophobia. Respiratory: Negative. Cardiovascular: Negative. Negative for chest pain and syncope. Gastrointestinal: Negative. Negative for bowel incontinence. Genitourinary: Negative. Negative for bladder incontinence. Musculoskeletal: Positive for neck pain. Skin: Negative. Neurological: Positive for headaches (occipital). Negative for tingling, weakness and numbness. Psychiatric/Behavioral: Negative. Endocrine: Endocrine negativeNegative for weight loss. Vital signs BP (!) 150/59 | Pulse 61 | Temp 36.1 C (97 F) (Tympanic) | Ht 5' (1.524 m) | Wt 179 lb (81.2kg) | BMI 34.96 kg/m Physical Exam Constitutional: General: She is not in acute distress. Appearance: She is well-developed. She is obese. HENT: Head: Normocephalic and atraumatic. Eyes: General: No scleral icterus. Conjunctiva/sclera: Conjunctivae normal. Pupils: Pupils are equal, round, and reactive to light. Neck: Musculoskeletal: Decreased range of motion. Pain with movement and muscular tenderness present. No crepitus or spinous process tenderness. Thyroid: No thyroid mass or thyromegaly. Vascular: No carotid bruit or JVD. Trachea: Trachea normal. No tracheal deviation. Meningeal: Brudzinski's sign and Kernig's sign absent. Cardiovascular: Rate and Rhythm: Normal rate. Rhythm irregular. Heart sounds: Normal heart sounds. No murmur. No friction rub. No gallop. Pulmonary: Effort: Pulmonary effort is normal. No respiratory distress. Breath sounds: Normal breath sounds. No wheezing or rales. Musculoskeletal: Cervical back: She exhibits spasm. Right lower leg: Edema (trace) present. Left lower leg: Edema (trace) present. Lymphadenopathy: Cervical: No cervical adenopathy. Skin: General: Skin is warm and dry. Coloration: Skin is not pale. Findings: No rash. Neurological: General: No focal deficit present. Mental Status: She is alert and oriented to person, place, and time. Sensory: No sensory deficit. Motor: No weakness. Gait: Gait normal. Psychiatric: Mood and Affect: Mood normal. Behavior: Behavior normal. LABS: CBC CMP WBC x10^3 (/CMM) Date Value 10/09/2003 10.5 WBC (10*3/L) Date Value 10/24/2019 9.18 NA Date Value 10/24/2019 139 mmol/L 10/09/2003 139 MMOL/L RBC x10^6 (/CMM) Date Value 10/09/2003 3.96 RBC (10*6/L) Date Value 10/24/2019 3.25 (L) K Date Value 10/24/2019 4.2 mmol/L 10/09/2003 4.3 MMOL/L PLT x10^3 (/CMM) Date Value 10/09/2003 260 PLT (10*3/L) Date Value 10/24/2019 189 CALCIUM Date Value 10/24/2019 8.4 mg/dL (L) 10/09/2003 8.4 MG/DL (L) HGB Date Value 10/24/2019 10.1 g/dL (L) 10/09/2003 12.3 G/DL CL Date Value 10/24/2019 104 mmol/L 10/09/2003 105 MMOL/L HCT (%) Date Value 10/24/2019 31.6 (L) 10/09/2003 36.4 BUN Date Value 10/24/2019 44 mg/dL (H) 10/09/2003 24 MG/DL (H) LIPID PANEL CREATININE Date Value 10/24/2019 1.77 mg/dL (H) 10/09/2003 1.12 MG/DL CHOL Date Value 06/17/2018 149 mg/dL 10/04/2003 225 MG/DL (H) GLUCOSE Date Value 10/24/2019 120 mg/dL (H) 10/09/2003 137 MG/DL (H) LDL CHOL Date Value 06/17/2018 58 mg/dL 10/04/2003 99 MG/DL CO2 TOTAL Date Value 10/24/2019 29 mmol/L 10/09/2003 23 MMOL/L HDL CHOL (MG/DL) Date Value 10/04/2003 75 HDL (mg/dL) Date Value 06/17/2018 72 ALBUMIN Date Value Ref Range Status 10/24/2019 3.6 3.5 - 5.0 g/dL Final 10/04/2003 3.3 (L) 3.5 - 5.0 G/DL Final TRIG Date Value 06/17/2018 94 mg/dL 10/04/2003 257 MG/DL (H) T PROTEIN Date Value Ref Range Status 10/24/2019 6.8 6.3 - 8.2 g/dL Final 10/04/2003 6.8 6.3 - 8.2 G/DL Final TSH TOTAL BILI Date Value Ref Range Status 10/24/2019 0.3 0.1 - 1.1 mg/dL Final 10/04/2003 <0.1 (A) 0.1 - 1.1 MG/DL Final TSH Date Value 10/28/2018 0.40 mIU/L (L) 10/04/2003 0.88 uIU/mL No components found for: BILIUNCOM BILI CONJ Date Value Ref Range Status 01/19/2019 0.0 0.0 - 0.3 mg/dL Final ALT(SGPT) Date Value Ref Range Status 06/26/2018 21 9 - 51 U/L Final 10/04/2003 20 9 - 51 U/L Final ALTv Date Value Ref Range Status 10/24/2019 17 5 - 35 U/L Final AST(SGOT) Date Value Ref Range Status 10/24/2019 21 13 - 40 U/L Final 10/04/2003 15 13 - 40 U/L Final ALK PHOS Date Value Ref Range Status 10/24/2019 117 34 - 122 U/L Final 10/04/2003 127 (H) 34 - 122 U/L Final ASSESSMENT/PLAN Diagnoses and all orders for this visit: Chronic neck pain, Spondylosis of cervical spine, Anterolisthesis We discussed the Ddx of neck pain. I suspect the patient's pain is coming from her DDD/DJD of the C-spine that has been documented before. Ice alt with/OR heat can be applied to painful areas (cautiously or avoid if diabetic). Tylenol Arthritis formula can be used PRN pain. NSAID therapy is contraindicated in this patient. Additional medications were prescribed as listed below (muscle relaxant, renally-dosed). I feel this patient would benefit from the expertise of a Physical Therapist and a referral has been initiated. If her pain doesn't improve I can consider referral to a Neurosurgeon or reproduction specialist. - tiZANidine 2 mg tablet; Take 1 tablet by mouth 2 (two) times daily as needed (muscle pain or spasm). - CONSULT/REFERRAL PHYSICAL THERAPY Referral of patient - CONSULT/REFERRAL MEDICARE ANNUAL WELLNESS VISIT Plan of care, desired health behaviors, goals, Ddx, and any prescribed medications were discussed with the patient. This visit did not involve counseling and coordination that comprised more than 50% of the visit time. Education resources and self-management tools were provided and reviewed with the AVS. Patient/guardian/family verbalized understanding and agrees to the plan of care. Barriers tocare: None. Ability to manage care: Good. Advanced care planning (living will) information was not given/offered to the patient to review for discussion at a future visit. If applicable, the [facility] database was accessed to review any controlled substance prescription claims data. If the patient is taking prescribed medications, the [employer] prescription claims data in [employer] was reviewed to assess patient compliance with the medication treatment plan. COVID-19 precautions given including frequent handwashing, social distancing, cleaning and disinfecting, indications for testing, etc. Follow-up: Return soon for Medicare Annual wellness visit. Follow-up sooner if any problems or concerns. Scribe Attestation I, Dejah Guillory , am scribing for, and in the presence of, Kylah Moscoso MD who performed the services described here-in. Dejah Guillory, October 28, 2019, 9:04 AM Physician Attestation I, Kylah Moscoso MD, personally performed the services described in this documentation , as scribed by, Dejah Guillory in my presence and it is both accurate and complete. Kylah Moscoso MD October 28, 2019, 9:04 AM documented in this encounter Plan of Treatment Date Type Specialty Care Team Description 11/14/2019 Laboratory Only Clinical Medical Laboratory Only, Adc Test 11/14/2019 Nurse Visit Cardiology Visit, Adc Nurse 11/17/2019 Appointment Cardiac Electrophysiology Silverio Menendez MD [address] [place] [phone] Anesthesia-Lissy, Ep Lab Outpt-Lissy, Ep Lab 11/17/2019 Appointment [facility]ograph [facility], [facility] Echo Room 3 - 11/19/2019 Office Visit Endocrinology Diabetes & CastleDuncan MD [address] [address] [phone] 01/12/2020 Office Visit Cardiology Sriram Heath M D [address] [place] [address] [phone] Health Maintenance Due Date Last Done Comments [...] 06/17/2018, 06/21/2017, Additional history exists CREATININE (SERUM) 10/23/2020 10/24/2019, 08/15/2019, 06/30/2019, Additional history exists HEPATITIS C (HCV) SCREEN Completed 06/21/2017 documented as of this encounter Implants Implanted Type Area Sap Data Architect Device Shelf Model / Identifier Expiration Serial / Date Lot Defibrillator DEFIBRILLATOR [employer] DT [id number] / [id number] / documented as of this encounter Results Not on filedocumented in this encounter Visit Diagnoses Diagnosis Chronic neck pain - Primary Cervicalgia Spondylosis of cervical spine Anterolisthesis Congenital spondylolisthesis Referral of patient Referral of patient without examination or treatment documented in this encounter Insurance Payer Benefit Plan / Subscriber ID Effective Phone Address T ype Group Dates [facility] [id number] 2019-Nuria javier [facility] - MEDICARE HMO MANAGED MEDICARE ADVANTAGE (Home) [place] [address] documented as of this encounter Advance Directives Name Relationship Healthcare Agent Communication Relationship Marcella Schmitz Child Health Care Agent nadia [email or web address]
--- OUTSIDE RECORDS SUMMARY | 2019-11-08 13:46 | XMS REPORT | Summary of Care ---
:[address] [facility] - [facility] Address [address] [place] [address] Care Team Providers Name Role Phone Ortega Dorsey MD Canvas Shrinker [phone] Lauryn Moscoso MD Primary Care Provider Lauren Dickinson DO Director Of Valuation Reason for Referral MRI/CAT Scan (STAT) Status Reason Specialty Diagnoses / Referred By Referred To Procedures Contact Contact New Request Diagnostic Diagnoses Headache disorder Regina Lal Radiology Procedures CT HEAD WO CONTRAST MD Lucy [address] [facility] [id number] [place], [place] [id number] Reason for Visit Reason Comments Headache Auth/Cert Status Reason Specialty Diagnoses / Referred By Referred To Procedures Contact Contact Emergency Medicine Adc Em ergency Dept [address] [place] [phone] Fax: Encounter Details Date Type Department Care Team Description 10/24/2019 Emergency ADC-Emergency Regina Lal, Headache disorder (Primary Dx); Department Acute cystitis without hematuria; [address] [place] [address] Dr king [address] [facility] ESR raised; [place] [address] [id number] Suspected Covid-19 Virus Infection; [phone] [place], [place] 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 Acute cystitis without hematuria documented as of this encounter (statuses as [...] been in contact with No / Unsure 10/24/2019 8:10 PM CDT someone who was confirmed or suspected to have Coronavirus / COVID-19? documented as of this encounter Last Filed Vital Signs Vital Sign Reading Time Taken Comments Blood Pressure 158/75 10/24/2019 11:00 PM CDT Pulse 65 10/24/2019 11:00 PM CDT Temperature 38.2 C (100.8 F) 10/24/2019 7:28 PM CDT Respiratory Rate 18 10/24/2019 11:00 PM CDT Oxygen Saturation 97% 10/24/2019 11:00 PM CDT Inhaled Oxygen Concentration - - Weight 80.3 kg (177 lb) 10/24/2019 7:28 PM CDT Height 152.4 cm (5') 10/24/2019 7:28 PM CDT Body Mass Index 34.57 10/24/2019 7:28 PM CDT documented in this encounter Discharge Instructions Regina Vargas MD - 10/24/2019 DIAGNOSIS Diagnoses that have been ruled out: None Diagnoses that are still under consideration: None Final diagnoses: Headache disorder Acute cystitis without hematuria ESR raised Suspected Covid-19 Virus Infection Anemia of chronic renal failure, unspecified CKD stage Chronic kidney disease, unspecified CKD stage NO LIFE-THREATENING FINDINGS ON TODAY'S EXAM. PROCEDURES IN THE ER TODAY: Orders Placed This Encounter Procedures CT HEAD WO CONTRAST URINALYSIS PROTHROMBIN TIME / INR CBC WITH DIFF COVID-19 (ID NOW RAPID TESTING) SEDIMENTATION RATE COMP. METABOLIC PANEL (19013) MEDICATIONS ADMINISTERED IN THE ER TODAY AND DISCHARGE MEDICATIONS: Orders Placed This Encounter Medications metoclopramide HCl (REGLAN) injection 10 mg diphenhydrAMINE (BENADRYL) injection 12.5 mg NaCl 0.9% (NS) bolus infusion 500 mL FENTanyl PF (SUBLIMAZE (PF)) injection 25 mcg cefTRIAXone (ROCEPHIN) 1,000 mg in NaCl 0.9% (NS) 50 mL MINI-BAG predniSONE (DELTASONE) tablet 60 mg vferxayxaz-aqioevaqyqgqv-dfkk 50-325-40 mg tablet predniSONE 20 mg tablet cephALEXin (KEFLEX) 500 mg capsule FOLLOW-UP RECOMMENDATIONS: RECOMMEND FOLLOW-UP WITH DR GARCIA, NEUROLOGIST JACQUI FOR FURTHER EVALUATION AND DEFINITIVE MANAGEMENT DISCUSSED MONITOR YOUR BLOOD GLUCOSE VERY CLOSELY YOU MAY HAVE TO INCREASE YOUR INSULIN REQUIREMENTS WHILE ON THE STEROID THERAPY RETURN TO ER FOR WORSENING OF SYMPTOMS documented in this encounter ED Notes Viktoriya Kirby RN - 10/24/2019 7:31 PM CDTPatient states that she has been experiencing a right sided headache since last Sunday. The patient denies any traumatic injury. documented in this encounter Miscellaneous Notes ED Nurse Note - Harpal Lilly RN - 10/24/2019 11:50 PM CDTPt given printed and verbal discharge instructions regarding visit findings, encouraged hydration, prescriptions provided and discussed with patient/family Discussed Tylenol and ibuprofen use for pain/fever. Discussed antibiotic therapy and to take until all completed unless adverse reaction occurs - if occurs, discontinue medication and follow up with pcp/seek medical attention Discussed Esgic side effects and to avoid driving/operating machinery/or engaging in activities requiring alertness while taking. Pt encouraged to follow up with pcp Advised to seek medical attention for new/prolonged/worsening of symptoms. No adverse reaction to meds given in ER noted upon discharge. PIV d'cd, dressing to site, catheter in tact. Pt verbalized understanding of instructions, awake alert oriented, resp reg unlabored, skin w/d, color appropriate for race, moves all ext well, pt leaving amb with steady gait, in no apparent distress, documented in this encounter Plan of Treatment Date Type Specialty Care Team Description 10/28/2019 Office Visit Family Medicine Kylah Moscoso MD [address] [facility] [place] [phone] 11/14/2019 Laboratory Only Clinical Medical Laboratory Only, Adc Test 11/14/2019 Nurse Visit Cardiology Visit, Adc Nurse 11/17/2019 Appointment Cardiac Electrophysiology Silverio Menendez MD [address] [place] [phone] Anesthesia-Lissy, Ep Lab Outpt-Lissy, Ep Lab 11/17/2019 Appointment Echocardiograph Pc, [facility] Echo Room 3 - 11/19/2019 Office Visit Endocrinology Diabetes & CastleDuncan MD [address] [address] [phone] 01/12/2020 Office Visit Cardiology Sriram Heath M D [address] [place] [address] [address] [place], [place] [address] Name Type Priority Associated Diagnoses Order S chedule URINE CULTURE LAB Routine Headache disorde r ONCE for 1 Occurrences Acute cystitis without start ing 10/24/2019 until hematuria 10/24/2019 ESR raised Suspected Covid-19 Virus Infection Anemia of chronic renal failure, unspecified CKD stage Chronic kidney disease, unspecified CKD stage Health Maintenance Due Date Last Done Comments [...] of this encounter Implants Implanted Type Area Fitter Placer Device Shelf Model / Identifier Expiration Serial / Date Lot Defibrillator DEFIBRILLATOR Medtronic DT [id number] / [id number] / documented as of this encounter Procedures Procedure Name Priority Date/Time Associated Comments Diagnosis COMP. METABOLIC PANEL STAT 10/24/2019 9:18 Headache disord er Results for this (71948) PM CDT procedure are i n the results section. PROTHROMBIN TIME / STAT 10/24/2019 9:10 Headache disorder Results for this INR PM CDT procedure are i n the results section. CBC WITH DIFF STAT 10/24/2019 9:10 Headache disorder Resul ts for this PM CDT procedure are i n the results section. SEDIMENTATION RATE STAT Add-On 10/24/2019 9:10 Headache disorder Results for this PM CDT procedure are i n the results section. COVID-19 (ID NOW STAT 10/24/2019 8:55 Headache disorder Re sults for this RAPID TESTING) PM CDT procedure are in the results section. URINALYSIS STAT 10/24/2019 8:55 Headache disorder Result s for this PM CDT procedure are i n the results section. CT HEAD WO CONTRAST STAT 10/24/2019 8:22 Headache disorder Results for this PM CDT procedure are i n the results section. NOTICE OF PRIVACY Routine 10/24/2019 7:19 PRACTICES PM CDT NOTICE OF PRIVACY Routine 10/24/2019 7:19 PRACTICES PM CDT documented in this encounter Results COMP. METABOLIC PANEL (86249) (10/24/2019 9:18 PM CDT) NA 139 135 - 145 [facility] mmol/L [facility] K 4.2 3.5 - 5.0 [facility] mmol/[facility] CL 104 98 - 108 mmol/L [facility] CO2 TOTAL 29 23 - 31 mmol/L [facility] AGAP 6 2 - 16 [facility] BUN 44 (H) 7 - 23 mg/dL [facility] GLUCOSE 120 (H) 70 - 110 mg/dL [facility] CREATININE 1.77 (H) 0.50 - 1.04 [facility] mg/dL [facility] TOTAL BILI 0.3 0.1 - 1.1 mg/dL [facility] CALCIUM 8.4 (L) 8.6 - 10.6 [facility] mg/dL [facility] T PROTEIN 6.8 6.3 - 8.2 g/dL [facility] ALBUMIN 3.6 3.5 - 5.0 g/dL [facility] ALK PHOS 117 34 - 122 U/L [facility] ALTv 17 5 - 35 U/L [facility] AST(SGOT) 21 13 - 40 U/L [facility] eGFR Calculation 28.1 mL/min/1.73m2 [facility] ([facility] [place]) eGFR Calculation 34.1 mL/min/1.73m2 [facility] ([facility]) [facility] Specimen Blood - VENOUS Narrative Performed At Association of Glomerular Filtration Rate (GFR) [facility] and Staging of Kidney Disease* + [...] abnormalities in imaging tests). Performing Organization Address City/[facility]/Zipcode Phone Number [facility] CLIA: [id number] [place] [address] SEDIMENTATION RATE (10/24/2019 9:10 PM CDT) Pathologist Sig [facility] ESR 77 (H) 0 - 20 mm/HR [facility] Specimen Blood - VENOUS Performing Organization Address [facility] Cent[facility]ode Phone Number [facility] CLIA: [id number] [place] [address] CBC WITH DIFF (10/24/2019 9:10 PM CDT) Pathologist Sig nature WBC 9.18 4.30 - 11.10 [facility] 10*3/L [facility] RBC 3.25 (L) 3.93 - 5.25 [facility] 10*6/L [facility] HGB 10.1 (L) 11.6 - 15.0 [facility] g/dL [facility] HCT 31.6 (L) 35.7 - 45.2 % [facility] MCV 97.2 (H) 80.6 - 95.5 fL [facility] MCH 31.1 25.9 - 32.8 pg [facility] MCHC 32.0 31.6 - 35.1 [facility] g/dL [facility] RDW-SD 44.6 39.0 - 49.9 fL [facility] RDW-CV 12.6 12.0 - 15.5 % [facility] PLT 189 166 - 358 [facility] 10*3/L [facility] MPV 12.4 9.5 - 12.9 fL [facility] NRBC/100 WBC 0.0 0.0 - 10.0 /100 [facility] WBCs [facility] NRBC x10^3 <0.01 10*3/L [facility] GRAN MAT (NEUT) % 56.9 % [facility] IMM GRAN % 0.30 % [facility] LYMPH % 30.2 % [facility] MONO % 10.7 % [facility] EOS % 1.7 % [facility] BASO % 0.2 % [facility] GRAN MAT x10^3(ANC) 5.22 1.88 - 7.09 [facility] 10*3/uL HOSPITAL LABORATORY IMM GRAN x10^3 0.03 0.00 - 0.06 [facility] 10*3/uL HOSPITAL LABORATORY LYMPH x10^3 2.77 1.32 - 3.29 [facility] 10*3/uL [facility] MONO x10^3 0.98 (H) 0.33 - 0.92 [facility] 10*3/uL [facility] EOS x10^3 0.16 0.03 - 0.39 [facility] 10*3/uL [facility] BASO x10^3 <0.03 0.01 - 0.07 [facility] 10*3/uL [facility] Specimen Blood - VENOUS Performing Organization Address City/[facility]/Zipcode Phone Number [facility] CLIA: [id number] [place] [address] [place] [address] PROTHROMBIN TIME / INR (10/24/2019 9:10 PM CDT) [facility] PROTIME PATIENT 14.4 12.0 - 14.7 [facility] LABORATORY INR 1.2Comment: Normal [facility] INR <1.1; Warfarin [facility] Therapeutic range LABORATORY 2.0 to 3.0 or 2.5 to 3.5, depending upon the indications. Specimen Blood - VENOUS Performing Organization Address City/[facility]/Zipcode Phone Number [facility] CLIA: [id number] [place] [address] [place] [address] COVID-19 (ID NOW RAPID TESTING) (10/24/2019 8:55 PM CDT) [facility] SARS-CoV-2 Rapid ID Not Detected Not Detected [facility] Specimen Swab - NASOPHARYNGEAL SWAB Narrative Performed At MD NOW COVID-19 Assay is an isothermal nucleic [facility] acid amplification test intended for the qualitative detection of nucleic acid from SARS-CoV-2 viral RNA in nasopharyngeal (BANDER AND CELLOPHANER MACHINE HELPER) specimens. It is used under Emergency Use Authorization (EUA) by FDA. The limit of detection (LOD) of the assay is 125 Genome Equivalents/mL. A positive result is indicative of the presence of SARS-CoV-2 RNA. Clinical correlation with patient history and other diagnostic information is necessary to determine patient infection status. A negative (Not Detected) result does not preclude SARS-CoV-2 infection. In patients with clinical symptoms and other tests that are consistent with SARS-CoV-2 infection, negative results should be treated as presumptive negative and a new specimen should be tested with alternative PCR molecular test. Invalid: Please collect a new specimen for repeat patient testing if clinically indicated. Performing Organization Address [facility] Centercoid Phone Number [facility] CLIA: [id number] [place] [address] URINALYSIS (10/24/2019 8:55 PM CDT) Pathologist Sig nature APPEARANCE Clear Clear [facility] COLOR Yellow Yellow [facility] PH 6.0 4.8 - 8.0 [facility] SP GRAVITY 1.012 1.003 - 1.030 [facility] GLU U QUAL Normal Normal [facility] BLOOD Negative Negative [facility] KETONES Negative Negative [facility] PROTEIN 100 mg/dL (A) Negative [facility] UROBILIN Normal Normal [facility] BILIRUBIN Negative Negative [facility] NITRITE Negative Negative [facility] LEUK DHIRAJ 75/uL (A) Negative [facility] RBC/HPF 2 0 - 3 HPF [facility] WBC/HPF 6 (H) 0 - 5 HPF [facility] BACTERIA Few (A) Negative [facility] MUCOUS Slight (A) Negative LPF [facility] SQ EPITH 4 HPF [facility] Specimen Urine - URINE, CLEAN CATCH Performing Organization Address [facility] Centercode Phone Number [facility] CLIA: [id number] [place] [address] HEAD WO CONTRAST (10/24/2019 8:22 PM CDT) Specimen Impressions Performed At PACS/VR/DOSE No acute intracranial abnormality. Narrative Performed At EXAM: CT HEAD WO CONTRAST PACS/VR/DOSE HISTORY: Headache, acute, normal neuro e xam TECHNIQUE: CT of the head was performed without intravenous contrast. Sagittal and coronal reformats were gene rated. COMPARISON: CT head dated 12/07/2018. FINDINGS: The ventricles and sulci are normal in c aliber and configuration. No hydrocephalus, midline shift or pathological extra-axi al fluid collection is present. The basal cisterns are unrem arkable. There is no acute intracranial hemorrhag e or significant mass effect. Unchanged right caudate head lacunar inf arct. The venegas-white matter differentiation is preserved. Again noted scattered foci of calcificat ions in the right frontal, left frontal and right occipital lobe, unchan ged from the prior imaging may represents sequela of remote infection o r granulomas. The mastoid air cells and paranasal air sinuses are clear. The calvarium and central skull base are unremarkable. Procedure Note [facility], Radiant Results Inft User - 2019 8:29 PM CDT EXAM: CT HEAD WO CONTRAST HISTORY: Headache, acute, normal neuro e xam TECHNIQUE: CT of the head was performed without intravenous contrast. Sagittal and coronal reformats were gene rated. COMPARISON: CT head dated 12/07/2018. FINDINGS: The ventricles and sulci are normal in c aliber and configuration. No hydrocephalus, midline shift or patholog ical extra-axial fluid collection is present. The basal cisterns are unrem arkable. There is no acute intracranial hemorrhag e or significant mass effect. Unchanged right caudate head lacunar inf arct. The venegas-white matter differentiation is preserved. Again noted scattered foci of calcificat ions in the right frontal, left frontal and right occipital lobe, unchan ged from the prior imaging may represents sequela of remote infection o r granulomas. The mastoid air cells and paranasal air sinuses are clear. The calvarium and central skull base are unremarkable. IMPRESSION No acute intracranial abnormality. Performing Organization Address City/State/Zipcode Phone Number PACS/VR/DOSE documented in this encounter Visit Diagnoses Diagnosis Headache disorder - Primary Headache Acute cystitis without hematuria Acute cystitis ESR raised Elevated sedimentation rate Suspected Covid-19 Virus Infection Anemia of chronic renal failure, unspeci fied CKD stage Chronic kidney disease, unspecified CKD stage documented in this encounter Administered Medications Medication Order MAR Action Action Date Dose Rate Site cefTRIAXone (ROCEPHIN) 1,000 mg Given 10/24/2019 10:19 PM CDT 1, 000 mg in NaCl 0.9% (NS) 50 mL MINI-BAG 1,000 mg, IV Piggyback, ONCE, 1 dose, Sun10/24/19 at 2300, 50 mL, Reason for Anti-Infective: Documented Infection, Documented Infection Site: Urine, Duration of Therapy: Other (see Comments) diphenhydrAMINE (BENADRYL) injection 12.5 Given 10/24/2019 9:12 PM CDT 12.5 mg mg 12.5 mg, Slow IV Push, ONCE, 1 dose, Sun10/24/19 at 2115, STAT FENTanyl PF (SUBLIMAZE (PF)) injection 25 Given 10/24/2019 10:19 PM CDT 25 mcg mcg 25 mcg, Slow IV Push, ONCE, 1 dose, Sun10/24/19 at 2245, STAT metoclopramide HCl (REGLAN) injection 10 mg Given 10/24/2019 9:11 PM CDT 10 mg 10 mg, Slow IV Push, ONCE, 1 dose, Sun10/24/19 at 2115, JACQUI NaCl 0.9% (NS) bolus infusion 500 New Bag 10/24/2019 9:11 PM CDT 500 mL 999 mL/hr mL at 999 mL/hr, 500 mL, IV Infusion, ONCE, 1 dose, Sun10/24/19 at 2145, STAT predniSONE (DELTASONE) tablet 60 mg Given 10/24/2019 10:19 PM CDT 60 mg 60 mg, Oral, ONCE, 1 dose, Sun10/24/19 at 2315, JACQUI documented in this encounter Additional Health Concerns Infection Onset Date Last Indicated Resolved Time COVID-19 Rule Out 10/24/2019 10/24/2019 10/24/2019 9: 47 PM CDT documented as of this encounter Insurance Payer Benefit Plan / Subscriber ID Effective Phone Address T ype Group Dates [place] [employer]/SANDRA [id number] 2019-Nuria javier [facility]ANT[facility] (Home) [place] [address] documented as of this encounter Advance Directives Name Relationship Healthcare Agent Communication Relationship Marcella Schmitz Child Health Care Agent nadia [email or web address]
--- OUTSIDE RECORDS SUMMARY | 2019-11-08 13:47 | XMS REPORT | Summary of Care ---
:1945 Author Organization [facility] Address [address] [place] [address] Care Team Providers Name Role Phone Ortega Dorsey MD Conference Coordinator [phone] Lauryn Moscoso MD Primary Care Provider Lauren Dickinson DO Fly Setter Reason for Referral (Routine) Status Reason Specialty Diagnoses / Referred By Referred To Procedures Contact Contact New Request Physical Therapy Diagnoses Chronic neck pain Spondylosis of cervical spine Anterolisthesis [place], Procedures CONSULT/REFERRAL PHYSICAL THERAPY Kylah Combs MD [address] [place] [address] [place] [address] (Routine) Status Reason Specialty Diagnoses / Referred By Referred To Procedures Contact Contact New Request Public Health & Diagnoses Referral of patient [place] General Preventive Procedures CONSULT/REFERRAL MEDICARE ANNUAL WELLNESS VISIT Kylah Combs MD [address] [place] [address] Reason for Visit Reason Comments Neck Pain Encounter Details Date Type Department Care Team Description 10/28/2019 Office Visit [facility] Family Kylah Moscoso lenora neck pain (Primary Dx); Medicine - Jason Combs MD Spondylosis of cervical spine; [address] [place] [address] DR [address]; Drive [place], [place] [address] [phone] Allergies No Known Allergiesdocumented as of this [...] feel a stretch in the muscles. Hold [id number]. Then turn to the other side. [id number] on each side. Note: Keep your shoulders on the floor. Dont lift or tuck your chin as you turn your head. [employer] last reviewed this educational content on 12/20/201619996297-2946 [employer]. [address] [place] [address], [place] [address]. All rights reserved. This information is not intended as a substitute for professional medical care. Always follow your healthcare professional's instructions. documented in this encounter Progress Notes Kylah Moscoso MD - 10/28/2019 9:30 AM CDT CC: Chief Complaint Patient presents with Neck Pain HPI Teena Simpson is a 74 year old female who presents for neck pain. She is Botswanan- speaking and prefersher daughter to serve as vacuum truck driver (declines use of a certified vacuum truck driver). Neck Pain Pain location: Generalized neck Quality: [...] Prior to Visit Medication Sig Dispense Refill msbsxgdnsl-cemgjzyfsmjqg-xhqt 50-325-40 mg tablet Take 1 tablet by [...] file Gets together: Not on file Attends yarsani service: Not on file Active member of [...] can consider referral to a Neurosurgeon or special education curriculum specialist. - tiZANidine 2 mg tablet; Take [...] at a future visit. If applicable, the [facility] database was accessed to review any controlled substance prescription claims data. If the patient is taking prescribed medications, the [employer] prescription claims data in [employer] was reviewed to assess patient compliance with [...] 11/17/2019 Appointment Cardiac Electrophysiology Silverio Menendez MD [address] [place] [phone] Anesthesia-Lissy, Ep Lab Outpt-Lissy, Ep Lab 11/17/2019 Appointment Echocardiograph Pc, [facility] Echo Room 3 - 11/19/2019 Office Visit Endocrinology Diabetes & CastleDuncan MD [address] [address] [phone] 01/12/2020 Office Visit Cardiology Sriram Heath M D [address] [place] [phone] Health Maintenance Due Date Last Done Comments [...] of this encounter Implants Implanted Type Area Industrial Controls Technician Device Shelf Model / Identifier Expiration Serial / Date Lot Defibrillator DEFIBRILLATOR Medtronic DT [id number] / [id number] / documented as of this encounter Results Not on filedocumented in this encounter Visit Diagnoses Diagnosis Chronic neck pain - Primary Cervicalgia Spondylosis of cervical spine Anterolisthesis Congenital spondylolisthesis Referral of patient Referral of patient without examination or treatment documented in this encounter Insurance Payer Benefit Plan / Subscriber ID Effective Phone Address T ype Group Dates [facility] [id number] 2019-Nuria javier [facility] - MEDICARE HMO MANAGED MEDICARE ADVANTAGE (Home) [place] [address] documented as of this encounter Advance Directives Name Relationship Healthcare Agent Communication Relationship Marcella Schmitz Child Health Care Agent nadia [email or web address]
--- OUTSIDE RECORDS SUMMARY | 2019-11-08 13:47 | XMS REPORT | Summary of Care ---
:1945 Author Organization [facility] - [facility] Address [address] [place], [place] [id number] Care Team Providers Name Role Phone Ortega Dorsey MD Optics Manufacturing Technician [phone] Lauryn Moscoso MD Primary Care Provider Lauren Dickinson DO Correction Officer Penitentiary Reason for Visit Reason Comments Medicare Annual Wellness Encounter Details Date Type Department Care Team Description 10/29/2019 Pre Visit Outreach [facility] Family Roula Moscoso Medicare Annual Medicine - Jason Combs MD Wellness [address] [place] [address] [place] [address] [phone] Allergies No Known Allergiesdocumented as of this encounter (statuses as of 10/30/2019) Medications Medication Sig Dispensed Refills Start Date [...] as of this encounter (statuses as of 10/30/2019) Active Problems Problem Noted Date Spontaneous ecchymoses [...] as of this encounter (statuses as of 10/30/2019) Immunizations Name Administration Dates Next Due HEP [...] this encounter Miscellaneous Notes Telephone Encounter - Tracy Bennett - 10/30/2019 11:14 AM CDTAnnual Wellness Visit - Pre Visit Outreach 10/30/19 Patient name: Teena Simpson Patient Second outreach regarding Annual Wellness Visit. Call outcome: no answer/unable to LVM HRA outcome: Eligibility: New medicare id needed to verify eligibility Tracy Bennett Health Maintenance Team elephone Encounter - Tracy Bennett - 10/29/2019 1:49 PM CDTAnnual Wellness Visit - Pre Visit Outreach 10/29/19 Patient name: Teena Simpson Patient First outreach regarding Annual Wellness Visit. Call outcome: LVM HRA outcome: Eligibility: New medicare id needed to verify eligibility Tracy Bennett Health Maintenance Team documented in this encounter Plan of Treatment Date Type Specialty Care Team Description 11/05/2019 Appointment Radiology Silverio Menendez MD [address] [place] [address] [phone] 11/14/2019 Laboratory Only Clinical Medical Laboratory Only, Adc Test 11/14/2019 Nurse Visit Cardiology Visit, Adc Nurse 11/17/2019 Appointment Cardiac Electrophysiology Silverio Menendez MD [address] [place] [address] [phone] Anesthesia-Lissy, Ep Lab Outpt-Lissy, Ep Lab 11/17/2019 Appointment Echocardiograph , [facility] Echo Room 3 - 11/19/2019 Office Visit Endocrinology Diabetes & Duncan Castle, MD Metabolism [address] [place] [address] [phone] 01/12/2020 Office Visit Cardiology Sriram Heath M D [address] [place] [address] [address] [place], [place] [address] [phone] Health Maintenance Due Date Last Done Comments [...] of this encounter Implants Implanted Type Area In Service Coordinator Device Shelf Model / Identifier Expiration Serial / Date Lot Defibrillator DEFIBRILLATOR Medtronic DT [id number] / [id number] / documented as of this encounter Results Not on filedocumented in this encounter Insurance Payer Benefit Plan / Subscriber ID Effective Phone Address T ype Group Dates [facility] [id number] 2019-Nuria Langford HEALTHC[facility] - [facility] documented as of this encounter Advance Directives Name Relationship Healthcare Agent Communication Relationship Marcella Schmitz Child Health Care Agent nadia [email or web address]
--- OUTSIDE RECORDS SUMMARY | 2019-11-08 13:47 | XMS REPORT | Summary of Care ---
:1945 Author Organization [facility] - [facility] Address [address] [place], [place] [id number] Care Team Providers Name Role Phone Ortega Dorsey MD Medical Review Specialist [phone] Lauryn Moscoso MD Primary Care Provider Lauren Dickinson DO Budget Controller Reason for Visit Reason Comments Medicare Annual Wellness Encounter Details Date Type Department Care Team Description 10/29/2019 Pre Visit Outreach [facility] Family Roula Moscoso Medicare Annual Medicine - Jason Combs MD Wellness [address] [place] [address] [place] [address] [phone] Allergies No Known Allergiesdocumented as of this encounter (statuses as of 10/29/2019) Medications Medication Sig Dispensed Refills Start Date [...] as of this encounter (statuses as of 10/29/2019) Active Problems Problem Noted Date Spontaneous ecchymoses [...] as of this encounter (statuses as of 10/29/2019) Immunizations Name Administration Dates Next Due HEP [...] Notes Telephone Encounter - Tracy Bennett - 10/29/2019 1:49 [...] Description 11/05/2019 Appointment Radiology Silverio Menendez MD [address] [place] [phone] 11/14/2019 Laboratory Only Clinical Medical Laboratory Only, Adc Test 11/14/2019 Nurse Visit Cardiology Visit, Adc Nurse 11/17/2019 Appointment Cardiac Electrophysiology Silverio Menendez MD [address] [place] [phone] Anesthesia-Lissy, Ep Lab Outpt-Lissy, Ep Lab 11/17/2019 Appointment Echocardiograph Pc, [facility] Echo Room 3 - 11/19/2019 Office Visit Endocrinology Diabetes & Duncan Castle MD Metabolism [address] [place] [address] [phone] 01/12/2020 Office Visit Cardiology Sriram Heath M D [address] [place] [address] [place] [address] [phone] Health Maintenance Due Date Last Done Comments [...] of this encounter Implants Implanted Type Area Rib Cutter Device Shelf Model / Identifier Expiration Serial / Date Lot Defibrillator DEFIBRILLATOR Medtronic DT [id number] / [id number] / documented as of this encounter Results Not on filedocumented in this encounter Insurance Payer Benefit Plan / Subscriber ID Effective Phone Address T ype Group Dates [facility] [id number] 2019-Nuria Langford HEALTHCARE - MEDICARE HMO MANAGED MEDICARE ADVANTAGE documented as of this encounter Advance Directives Name Relationship Healthcare Agent Communication Relationship Marcella Schmitz Child Health Care Agent nadia [email or web address]
--- OUTSIDE RECORDS SUMMARY | 2019-11-08 13:48 | XMS REPORT | Summary of Care ---
:[address] [facility] Address [address] [place], [place] [id number] Care Team Providers Name Role Phone Ortega Dorsey MD Draw In Hand [phone] Lauryn Moscoso MD Primary Care Provider Lauren Dickinson DO Fiber Technician Reason for Referral MRI/CAT Scan (Routine) Status Reason Specialty Diagnoses / Referred By Referred To Procedures Contact Contact Closed Diagnostic Diagnoses Persistent atrial fibrillation Silverio Menendez MD Radiology Procedures CT HEART W CONTRAST STRUCTURES ONLY (NON CORONARY) [address] [place] [phone] Reason for Visit MRI/CAT Scan (Routine) Status Reason Specialty Diagnoses / Referred By Referred To Procedures Contact Contact Closed Diagnostic Diagnoses Persistent atrial fibrillation Silverio Menendez MD Radiology Procedures CT HEART W CONTRAST STRUCTURES ONLY (NON CORONARY) [address] [place] [phone] Encounter Details Date Type Department Care Team Description 11/05/2019 Hospital Encounter [facility] Diagnostic Silverio Menendez MD Arrived Imaging, [facility] [address] [place] [address] [address] [place] [phone] Allergies No Known Allergiesdocumented as of this encounter (statuses as of 11/06/2019) Medications Medication Sig Dispensed Refills Start Date [...] as of this encounter (statuses as of 11/06/2019) Active Problems Problem Noted Date Spontaneous ecchymoses [...] as of this encounter (statuses as of 11/06/2019) Immunizations Name Administration Dates Next Due HEP [...] 11/17/2019 Appointment Cardiac Electrophysiology Silverio Menendez MD [address] [place] [phone] Anesthesia-Lissy, Ep Lab Outpt-Lissy, Ep Lab 11/17/2019 Appointment Echocardiograph Pc, [facility] Echo Room 3 - 11/19/2019 Office Visit Endocrinology Diabetes & Duncan Castle MD [address] [address] [phone] 01/12/2020 Office Visit Cardiology Sriram Heath M D [address] [place] [address] [place] [address] 15 Name Type Priority Associated Diagnoses Date/Ti me CT HEART W CONTRAST IMAGING Routine Persistent atrial 8:16 AM STRUCTURES ONLY (NON fibrillation CDT CORONARY) Name Type Priority Associated Diagnoses Order S chedule CT HEART W CONTRAST IMAGING Routine Persistent atrial ONC E for 1 Occurrences STRUCTURES ONLY (NON fibrillation startin g 11/05/2019 CORONARY) until 0 Health Maintenance Due Date Last Done Comments [...] of this encounter Implants Implanted Type Area Coach Driver Device Shelf Model / Identifier Expiration Serial / Date Lot Defibrillator DEFIBRILLATOR Medtronic DT [id number] / [id number] / documented as of this encounter Results Not on filedocumented in this encounter Visit Diagnoses Diagnosis Persistent atrial fibrillation Atrial fibrillation documented in this encounter Administered Medications Medication Order MAR Action Action Date Dose Rate Site iohexol (OMNIPAQUE 350 BULK-100 Given 11/05/2019 8:30 AM CDT 10 0 mL mL) injection 100 mL 100 mL, Intravenous, ONCE, 1 dose, 11/05/19 at 0830, Routine documented in this encounter Insurance Payer Benefit Plan / Subscriber ID Effective Phone Address T ype Group Dates [facility] [id number] 2019-Nuria javier Adv HEALTHCARE - MEDICARE nt HMO MANAGED MEDICARE ADVANTAGE (Home) [place] [address] documented as of this encounter Advance Directives Name Relationship Healthcare Agent Communication Relationship Marcella Schmitz Child Health Care Agent nadia [email or web address]
[2019-11-08] MEDS ORDERED: METOPROLOL TARTRATE 5 MG/5 ML INJ IV ONE (13:57)
[2019-11-08] MEDS ORDERED: DIGOXIN 0.25 MG/ML AMP ONE (13:57)
[2019-11-08] MEDS ORDERED: NA CHLORIDE 0.9% 1,000 ML ONE (13:58)
[2019-11-08] MEDS ORDERED: MAGNESIUM SULFATE 1 gm IVPB 1 GM/100 ML BAG IV ONE (14:07)
[2019-11-08 14:08] LABS: Absolute Lymphocytes (CBC) 1.9 K/uL (0.7-4.9); Basophils % 0.4 % (0-1.3); Hematocrit 33.9 % (36.0-45.0); MPV 10.9 fL (7.6-11.3); RBC Red Blood Cell Count 3.58 M/uL (3.86-4.86)
--- NOTE | 2019-11-08 14:17 | EDPHYS ---
Physician Documentation [facility] Name: Teena Simpson Age: 74 yrs Sex: Female : 1945 Arrival Date: 11/08/2019 Time: 13:41 Bed 2 Private MD: ED Physician Luis Alberto Perez HPI: 11/07 14:06 This 74 yrs old Female presents to ER via Unassigned with complaints of neck jann pain weakness. 14:06 The patient has shortness of breath at rest. Onset: The symptoms/episode began/occurred jann 1 day(s) ago. Duration: The symptoms are continuous, and are steadily getting worse. The patient's shortness of breath has no apparent modifying factors. The patient or guardian reports chest pain that is located primarily in the anterior chest wall, bilaterally. Onset: just prior to arrival, this morning. weakness. The pain does not radiate. Associated signs and symptoms: Pertinent positives: chest pain, non-productive cough, dizziness. Severity of symptoms: At their worst the symptoms were mild moderate in the emergency department the symptoms are unchanged. 14:09 Associated signs and symptoms: Pertinent positives: lightheadedness, shortness of jann breath. The chest pain is described as a pressure. Duration: The patient or guardian reports a single episode, that is still ongoing. Modifying factors: The symptoms are alleviated by application of supplemental oxygen, remaining still, the symptoms are aggravated by exertion, movement. Severity of pain: At its worst the pain was mild in the emergency department the pain is unchanged. EMS care prior to arrival includes: IV fluids, supplemental oxygen. Historical: - Allergies: 13:35 No Known Allergies; aa5 - Home Meds: 13:45 metoprolol succinate 100 mg oral Tb24 1 tab twice a day [Active]; furosemide 40 mg oral aa5 tab 2 times per day [Active]; tizanidine 2 mg oral cap twice a day [Active]; Xarelto 15 mg Oral tab daily [Active]; atorvastatin 40 mg oral tab 1 tab once daily [Active]; Phenytoin 100mg cap Oral take 1 capsule every morning and 2 capsules in the evening [Active]; digoxin 125 mcg Oral tab once daily [Active]; Entresto 24-26 mg oral tab twice a day [Active]; - PMHx: 13:35 Anxiety; Diabetes - IDDM; High Cholesterol; Hypertension; Myocardial infarction; aa5 neuropathy; Seizures; CHF; Low HR; Atrial Fib; - PSHx: 13:35 Defibrillator; aa5 13:35 pacemaker; aa5 - Immunization history:: Adult Immunizations unknown. - Social history:: Smoking status: Patient denies any tobacco usage or history of. - Family history:: not pertinent. ROS: 14:06 Constitutional: Negative for fever, chills, and weight loss, Eyes: Negative for injury, jann pain, redness, and discharge, ENT: Negative for injury, pain, and discharge, Neck: Negative for injury, pain, and swelling, Respiratory: Negative for shortness of breath, cough, wheezing, and pleuritic chest pain, Abdomen/GI: Negative for abdominal pain, nausea, vomiting, diarrhea, and constipation, Back: Negative for injury and pain, : Negative for injury, bleeding, discharge, and swelling, MS/Extremity: Negative for injury and deformity, Skin: Negative for injury, rash, and discoloration, Neuro: Negative for headache, weakness, numbness, tingling, and seizure, Psych: Negative for depression, anxiety, suicide ideation, homicidal ideation, and hallucinations, Allergy/Immunology: Negative for hives, rash, and allergies, Endocrine: Negative for neck swelling, polydipsia, polyuria, polyphagia, and marked weight changes, Hematologic/Lymphatic: Negative for swollen nodes, abnormal bleeding, and unusual bruising. 14:06 Cardiovascular: Positive for chest pain, palpitations. Exam: 14:06 Constitutional: This is a well developed, well nourished patient who is awake, alert, jann and in no acute distress. Head/Face: Normocephalic, atraumatic. Eyes: Pupils equal round and reactive to light, extra-ocular motions intact. Lids and lashes normal. Conjunctiva and sclera are non-icteric and not injected. Cornea within normal limits. Periorbital areas with no swelling, redness, or edema. ENT: Nares patent. No nasal discharge, no septal abnormalities noted. Tympanic membranes are normal and external auditory canals are clear. Oropharynx with no redness, swelling, or masses, exudates, or evidence of obstruction, uvula midline. Mucous membranes moist. Neck: Trachea midline, no thyromegaly or masses palpated, and no cervical lymphadenopathy. Supple, full range of motion without nuchal rigidity, or vertebral point tenderness. No Meningismus. Chest/axilla: Normal chest wall appearance and motion. Nontender with no deformity. No lesions are appreciated. Respiratory: Lungs have equal breath sounds bilaterally, clear to auscultation and percussion. No rales, rhonchi or wheezes noted. No increased work of breathing, no retractions or nasal flaring. Abdomen/GI: Soft, non-tender, with normal bowel sounds. No distension or tympany. No guarding or rebound. No evidence of tenderness throughout. Back: No spinal tenderness. No costovertebral tenderness. Full range of motion. Female : Normal external genitalia. Skin: Warm, dry with normal turgor. Normal color with no rashes, no lesions, and no evidence of cellulitis. MS/ Extremity: Pulses equal, no cyanosis. Neurovascular intact. Full, normal range of motion. Neuro: Awake and alert, GCS 15, oriented to person, place, time, and situation. Cranial nerves II-XII grossly intact. Motor strength 5/5 in all extremities. Sensory grossly intact. Cerebellar exam normal. Normal gait. Psych: Awake, alert, with orientation to person, place and time. Behavior, mood, and affect are within normal limits. 14:06 Cardiovascular: Rate: tachycardic, Rhythm: irregular, Pulses: Pulses are 4+ in bilateral radial, brachial, femoral, popliteal, posterior tibial and and dorsalis pedis arteries.. Heart sounds: normal, Edema: is not appreciated, JVD: is not appreciated. 14:06 Musculoskeletal/extremity: DVT Exam: No signs of deep vein thrombosis. no pain, no swelling, no tenderness, negative Homans' sign noted on exam, no appreciated bluish discoloration, no erythema, no increased warmth. Vital Signs: 13:33 BP 132 / 91; Pulse 158; Resp 22 S; Temp 98.6(O); Pulse Ox 99% on R/A; aa5 13:36 BP 97 / 71; Pulse 159; Resp 20 S; Pulse Ox 99% on R/A; aa5 13:40 BP 93 / 59; Pulse 155; Resp 20 S; Pulse Ox 99% on R/A; aa5 13:42 BP 108 / 56; Pulse 159; Resp 22 S; Pulse Ox 99% on R/A; aa5 13:46 BP 73 / 30; Pulse 160; Resp 18 S; Pulse Ox 100% on R/A; aa5 13:50 BP 103 / 88; Pulse 145; Resp 20 S; Pulse Ox 100% on R/A; aa5 14:00 BP 123 / 89; Pulse 82; Resp 16 S; Pulse Ox 100% on R/A; aa5 14:05 BP 130 / 79; Pulse 84; Resp 16 S; Pulse Ox 100% on R/A; aa5 14:10 BP 120 / 50; Pulse 85; Resp 18 S; Pulse Ox 100% on R/A; aa5 14:20 BP 120 / 50; Pulse 84; Resp 14 S; Pulse Ox 100% on R/A; aa5 14:50 BP 139 / 66; Pulse 83; Resp 18 S; Pulse Ox 100% on R/A; aa5 15:30 BP 118 / 60; Pulse 83; Resp 14 S; Temp 98.0(O); Pulse Ox 100% on R/A; aa5 16:20 BP 115 / 70; Pulse 82; Resp 16 S; Pulse Ox 100% on R/A; aa5 MDM: 13:42 Patient medically screened. jann 14:10 Differential diagnosis: Anemia Anxiety Reaction abnormal EKG, acute myocardial jann infarction, anxiety, hiatal hernia, pleurisy, pneumothorax, pulmonary embolus, stable angina, unstable angina, Myocardial Infarction pulmonary edema, reactive airway disease, Unstable Angina. Antibiotic administration: Not indicated. HEART Score: History: Moderately Suspicious (1), ECG: Significant ST-deviation (2), Age: > or = 65 years (2), Risk Factors: > or = 3 Risk factors for atherosclerotic disease (2), Troponin: < or = 1 x Normal Limit (0). The patient was not given aspirin in the Emergency Department. Not indicated due to patient's past medical history. The patient's Wells Deep Vein Thrombosis Score was calculated as follows: Total Score: 0. This patient was found to be at low risk for a deep vein thrombosis by using the Well's assessment criteria Total Score: 0-2 Pts- Low Risk. The patient's pulmonary embolism risk score was calculated as follows: Total Score: 0-2 points. This patient was found to be at low risk for a pulmonary embolism by using the Well's assessment criteria. PHI Risk Score: 1 - patient's age is greater or equal to 65 years, 1 - Three or more CAD risk factors, 1- Known CAD, 1 - ST deviation >0.5mm, TOTAL SCORE = 4. Immunization status: Pneumococcal vaccine: Influenza vaccine: Data reviewed: vital signs, nurses notes, EMS record, old medical records, lab test result(s), EKG, radiologic studies, plain films. Data interpreted: regulatory attorney: rate is 167 beats/min, rhythm is regular, Pulse oximetry: on room air is 99 %. Test interpretation: by ED physician or midlevel provider: ECG, plain radiologic studies. Counseling: I had a detailed discussion with the patient and/or guardian regarding: the historical points, exam findings, and any diagnostic results supporting the discharge/admit diagnosis, lab results, radiology results, the need for further work-up and treatment in the hospital. 11/07 13:42 Order name: Basic Metabolic Panel; Complete Time: 14:47 11/07 13:42 Order name: CBC with Diff; Complete Time: 15:08 11/07 13:42 Order name: LFT's; Complete Time: 14:47 11/07 13:42 Order name: Magnesium; Complete Time: 14:47 11/07 13:42 Order name: NT PRO-BNP; Complete Time: 14:47 11/07 13:42 Order name: PT-INR; Complete Time: 15:08 11/07 13:42 Order name: Troponin (emerg Dept Use Only); Complete Time: 14:47 11/07 13:42 Order name: XRAY Chest (1 view); Complete Time: 14:47 11/07 13:57 Order name: Digoxin Level; Complete Time: 14:47 EDGA 11/07 13:57 Order name: Thyroid Stimulating Hormone; Complete Time: 14:47 [facility] 11/07 14:06 Order name: Dilantin; Complete Time: 14:47 [facility] 11/07 15:05 Order name: Glucose, Ancillary Testing; Complete Time: 15:08 EDGA 11/07 13:42 Order name: EKG; Complete Time: 13:43 11/07 13:42 Order name: Cardiac monitoring; Complete Time: 13:54 11/07 13:42 Order name: EKG - Nurse/Tech; Complete Time: 13:54 11/07 13:42 Order name: IV Saline Lock; Complete Time: 13:54 11/07 13:42 Order name: Labs collected and sent; Complete Time: 13:54 11/07 13:42 Order name: O2 Per Protocol; Complete Time: 13:54 iw 11/07 13:42 Order name: O2 Sat Monitoring; Complete Time: 13:54 iw Administered Medications: 13:40 Drug: NS 0.9% 250 ml {Note: VO received at 1340.} Route: IV; Rate: bolus; Site: right aa5 antecubital; 13:55 Follow up: IV Status: Completed infusion; IV Intake: 250ml aa5 13:45 Drug: Digoxin 0.5 mg Route: IVP; Site: right antecubital; aa5 13:55 Follow up: Response: No adverse reaction aa5 13:48 Drug: Metoprolol 5 mg Route: IVP; Site: right antecubital; aa5 13:55 Follow up: Response: No adverse reaction aa5 13:55 Drug: Magnesium Sulfate 1 grams Route: IVPB; Infused Over: 1 hrs; Site: right aa5 antecubital; 14:55 Follow up: Response: No adverse reaction; IV Status: Completed infusion aa5 14:10 Drug: NS 0.9% 1000 ml Route: IV; Rate: 125 ml/hr; Site: right antecubital; aa5 16:45 Follow up: IV Status: Infusion continued upon transfer aa5 Disposition: 11/08/19 14:50 Transfer ordered to [facility]. Diagnosis are Atrial fibrillation and flutter - w RVR, Systolic (congestive) heart failure, Type 1 diabetes mellitus, Obesity, unspecified, Unspecified kidney failure - ACUTE ON CHRONIC. - Reason for transfer: Higher level of care. - Accepting physician is TO [facility], CARDIOLOGY. - Condition is Fair. - Problem is new. - Symptoms have improved. Signatures: Dispatcher [employer] EDGA Luis Alberto Perez MD MD cha Williams, Irene RN WM Joan Villanueva RN RN aa5 Corrections: (The following items were deleted from the chart) 13:57 13:54 THYROID STIMULAT HORMONE+C.LAB.BRZ ordered. EDMS EDMS 13:57 13:54 DIGOXIN+C.LAB.BRZ ordered. EDGA EDMS 14:48 14:15 Hospitalization Ordered by Yuri Prezas DO for Inpatient Admission. Preliminary jann diagnosis is Atrial fibrillation and flutter; Dyspnea; Cardiomegaly. Bed requested for Telemetry/MedSurg (Inpatient). Status is Inpatient Admission. Condition is Fair. Problem is new. Symptoms have improved. jann 16:52 14:50 11/08/2019 14:50 Transfer ordered to [facility]. Diagnosis is Atrial iw fibrillation and flutter - w RVR; Systolic (congestive) heart failure; Type 1 diabetes mellitus; Obesity, unspecified; Unspecified kidney failure - ACUTE ON CHRONIC. Reason for transfer: Higher level of care. Accepting physician is TO [facility], CARDIOLOGY. Condition is Fair. Problem is new. Symptoms have improved. jann
[2019-11-08 14:31] LABS: ALT/SGPT 25 U/L (12-78); AST/SGOT 17 U/L (15-37); Albumin 2.9 g/dL (3.4-5.0); Alkaline Phosphatase 124 U/L (45-117); BUN Blood Urea Nitrogen 35 mg/dL (7-18); Bicarbonate 24 mmol/L (21-32); Bilirubin Direct < 0.1 mg/dL (0-0.2); Bilirubin Total 0.1 mg/dL (0.2-1.0); Glucose Level 158 mg/dL (74-106); Magnesium 2.5 mg/dL (1.8-2.4); NT PRO-BNP 1847 pg/mL (<125); Sodium Level 144 mmol/L (136-145); Thyroid Stimulating Hormone 0.605 uIU/mL (0.360-3.740); Troponin (Emerg Dept Use Only) 0.02 ng/mL (0.0-0.045)
--- NOTE | 2019-11-08 14:37 | RAD REPORT ---
EXAM DESCRIPTION: Lou Single View11/08/2019 2:19 pm CLINICAL HISTORY: Chest pain COMPARISON: July 2019 FINDINGS: The lungs appear clear of acute infiltrate. The heart is mildly to moderately enlarged. P acemaker leads are in place. IMPRESSION: No acute abnormalities displayed
--- NOTE | 2019-11-08 14:51 | ER ---
Nurse's Notes [facility] Name: Teena Simpson Age: 74 yrs Sex: Female : 1945 Arrival Date: 11/08/2019 Time: 13:41 Bed 2 Private MD: Diagnosis: Atrial fibrillation and flutter-w RVR;Systolic (congestive) heart failure;Type 1 diabetes mellitus;Obesity, unspecified;Unspecified kidney failure-ACUTE ON CHRONIC Presentation: 11/07 13:32 Chief complaint: EMS states: called out for high blood pressure, upon scene arrival, pt aa5 was c/o neck pain and generalized weakness, initial BP 79/56 and now up to 119/64, HR 140s-150s. Pt upon arrival to ER appears pale and uncomfortable, c/o neck pain, generalized weakness, and feeling drowsy. Pt states "I am supposed to get my defibrillator checked about a week from Sunday". 13:32 Coronavirus screen: Client denies travel out of the [place] in the last 14 days. At this aa5 time, the client does not indicate any symptoms associated with coronavirus-19. Ebola Screen: Patient negative for fever greater than or equal to 101.5 degrees Fahrenheit, and additional compatible Ebola Virus Disease symptoms. Initial Sepsis Screen: Does the patient meet any 2 criteria? RR > 20 per min. HR > 90 bpm. Does the patient have a suspected source of infection? No. Patient's initial sepsis screen is negative. Risk Assessment: Do you want to hurt yourself or someone else? Patient reports no desire to harm self or others. Onset of symptoms was November 08, 2019. 13:32 Acuity: TYSON 2 aa5 13:32 Method Of Arrival: EMS: [facility] aa5 Historical: - Allergies: 13:35 No Known Allergies; aa5 - Home Meds: 13:45 metoprolol succinate 100 mg oral Tb24 1 tab twice a day [Active]; furosemide 40 mg oral aa5 tab 2 times per day [Active]; tizanidine 2 mg oral cap twice a day [Active]; Xarelto 15 mg Oral tab daily [Active]; atorvastatin 40 mg oral tab 1 tab once daily [Active]; Phenytoin 100mg cap Oral take 1 capsule every morning and 2 capsules in the evening [Active]; digoxin 125 mcg Oral tab once daily [Active]; Entresto 24-26 mg oral tab twice a day [Active]; - PMHx: 13:35 Anxiety; Diabetes - IDDM; High Cholesterol; Hypertension; Myocardial infarction; aa5 neuropathy; Seizures; CHF; Low HR; Atrial Fib; - PSHx: 13:35 Defibrillator; aa5 13:35 pacemaker; aa5 - Immunization history:: Adult Immunizations unknown. - Social history:: Smoking status: Patient denies any tobacco usage or history of. - Family history:: not pertinent. Screenin:00 Abuse screen: Denies threats or abuse. Nutritional screening: No deficits noted. aa5 Tuberculosis screening: No symptoms or risk factors identified. Fall Risk None identified. Assessment: 13:32 General: Appears uncomfortable, Behavior is calm, cooperative. Pain: Complains of pain aa5 in back of neck Pain does not radiate. Pain currently is 9 out of 10 on a pain scale. Quality of pain is described as sharp, Pain began just CLERK Is continuous. Neuro: Level of Consciousness is awake, alert, obeys commands, Oriented to person, place, time, situation. Cardiovascular: Heart tones S1 S2 present Rhythm is regular and rapid. Respiratory: Airway is patent Respiratory effort is even, unlabored, Respiratory pattern is regular, symmetrical, Breath sounds are clear bilaterally. Denies cough, shortness of breath. GI: Abdomen is round non-distended, Bowel sounds present X 4 quads. Abd is soft and non tender X 4 quads. Patient currently denies nausea, vomiting. : No signs and/or symptoms were reported regarding the genitourinary system. EENT: No signs and/or symptoms were reported regarding the EENT system. Derm: Skin is dry, Skin is pale, Skin temperature is warm. Musculoskeletal: Range of motion: intact in all extremities. 13:42 Reassessment: VO to administer digoxin and metoprolol . aa5 13:50 Reassessment: Attempted to interrogate [employer] pacemaker at this time, having aa5 connecting issues and being delayed at this time, MD was notified of issues. . 13:55 Reassessment: Patient is alert, oriented x 3, equal unlabored respirations, skin aa5 warm/dry/pink. Pt denies neck pain at this time, pt states "I just have a little headache now". Rhythm is paced with PVCs at this time. . 14:00 Reassessment: Pt HR decreased, now paced rhythm with PVCs. aa5 14:00 Reassessment: Patient is alert, oriented x 3, equal unlabored respirations, skin aa5 warm/dry/pink. Patient states symptoms have improved. 14:10 Reassessment: Medtronic pacemaker interrogated using Medtronic Ipad and roberto. [employer] aa5 results received via fax and provided to Dr. Perez. Dr. Perez also received a call from [employer].. 14:20 Reassessment: Patient is alert, oriented x 3, equal unlabored respirations, skin aa5 warm/dry/pink. Patient denies pain at this time. Patient states feeling better. Pt assisted with bedpan, pt voided once. . 14:20 Cardiovascular: Rhythm is is paced with PVCs. aa5 15:56 Reassessment: Report given to Regi (Nurse at [facility] in [place]). aa5 15:58 Reassessment: Patient is alert, oriented x 3, equal unlabored respirations, skin aa5 warm/dry/pink. Patient denies pain at this time. Patient states feeling better. Patient states symptoms have improved. Pt notified of wait time for transfer via EMS, ETA is 1 hour, pt verbalizes understanding. Pt assisted to restroom by Rosa Martell RN at this time. . 16:45 Reassessment: Patient is alert, oriented x 3, equal unlabored respirations, skin aa5 warm/dry/pink. Patient denies pain at this time. Vital Signs: 13:33 BP 132 / 91; Pulse 158; Resp 22 S; Temp 98.6(O); Pulse Ox 99% on R/A; aa5 13:36 BP 97 / 71; Pulse 159; Resp 20 S; Pulse Ox 99% on R/A; aa5 13:40 BP 93 / 59; Pulse 155; Resp 20 S; Pulse Ox 99% on R/A; aa5 13:42 BP 108 / 56; Pulse 159; Resp 22 S; Pulse Ox 99% on R/A; aa5 13:46 BP 73 / 30; Pulse 160; Resp 18 S; Pulse Ox 100% on R/A; aa5 13:50 BP 103 / 88; Pulse 145; Resp 20 S; Pulse Ox 100% on R/A; aa5 14:00 BP 123 / 89; Pulse 82; Resp 16 S; Pulse Ox 100% on R/A; aa5 14:05 BP 130 / 79; Pulse 84; Resp 16 S; Pulse Ox 100% on R/A; aa5 14:10 BP 120 / 50; Pulse 85; Resp 18 S; Pulse Ox 100% on R/A; aa5 14:20 BP 120 / 50; Pulse 84; Resp 14 S; Pulse Ox 100% on R/A; aa5 14:50 BP 139 / 66; Pulse 83; Resp 18 S; Pulse Ox 100% on R/A; aa5 15:30 BP 118 / 60; Pulse 83; Resp 14 S; Temp 98.0(O); Pulse Ox 100% on R/A; aa5 16:20 BP 115 / 70; Pulse 82; Resp 16 S; Pulse Ox 100% on R/A; aa5 ED Course: 13:32 Patient arrived in ED. aa5 13:32 Arm band placed on. aa5 13:32 Patient has correct armband on for positive identification. Placed in gown. Bed in low aa5 position. Call light in reach. Side rails up X2. 13:32 school age program teacher on. Pulse ox on. NIBP on. aa5 13:40 Initial lab(s) drawn, by me, sent to lab. Inserted saline lock: 18 gauge in right aa5 antecubital area, using aseptic technique. 13:42 Luis Alberto Perez MD is Attending Physician. jann 13:53 Joan Villanueva, WM is Primary Nurse. aa5 14:13 Yuri Ritter DO is Hospitalizing Provider. jann 14:19 XRAY Chest (1 view) In Process Unspecified. EDMS 14:34 Triage completed. aa5 14:58 initiated a transfer with Fuad from the [facility]. eb 15:03 connected the application defense manager iron setter for [facility] with Dr. Perez for patient eb transfer consultation. 15:25 administrative approval given by Fuad Askew/ patient has been accepted to [facility] C[facility] Gonzalez 9a 909/ Dr. Jacobo has accepted the patient in transfer/ report to be called to [phone]. 16:45 No provider procedures requiring assistance completed. Patient transferred, IV remains aa5 in place. Administered Medications: 13:40 Drug: NS 0.9% 250 ml {Note: VO received at 1340.} Route: IV; Rate: bolus; Site: right aa5 antecubital; 13:55 Follow up: IV Status: Completed infusion; IV Intake: 250ml aa5 13:45 Drug: Digoxin 0.5 mg Route: IVP; Site: right antecubital; aa5 13:55 Follow up: Response: No adverse reaction aa5 13:48 Drug: Metoprolol 5 mg Route: IVP; Site: right antecubital; aa5 13:55 Follow up: Response: No adverse reaction aa5 13:55 Drug: Magnesium Sulfate 1 grams Route: IVPB; Infused Over: 1 hrs; Site: right aa5 antecubital; 14:55 Follow up: Response: No adverse reaction; IV Status: Completed infusion aa5 14:10 Drug: NS 0.9% 1000 ml Route: IV; Rate: 125 ml/hr; Site: right antecubital; aa5 16:45 Follow up: IV Status: Infusion continued upon transfer aa5 Intake: 13:55 IV: 250ml; Total: 250ml. aa5 Outcome: 14:15 Decision to Hospitalize by Provider. [facility] 14:50 ER care complete, transfer ordered by . [facility] 16:45 Transferred by ground EMS Transfer form completed. X-rays sent w/ patient. Note: aa5 [facility] in [place], [place]. Report given to [facility] 16:45 Condition: stable aa5 16:45 Discharge instructions given to patient, family, significant other, Instructed on the need for transfer. 16:52 Patient left the ED. Signatures: Dispatcher [employer] EDLuis Alberto Connor MD MD cha Williams, Irene, RN RN Joan Villanueva RN RN aa5 Leslie Worthy Corrections: (The following items were deleted from the chart) 14:31 13:41 Patient arrived in ED. aa5 21:22 13:32 Cardiovascular: Heart tones S1 S2 present aa5 aa5 11/08 11:20 09 14:10 Reassessment: Medtronic pacemaker interrogated using Med[employer] Ipad and aa5 roberto. [employer] results received via fax provided to Dr. Perez. aa5
[2019-11-08 17:01] VITALS: BP 120/50; O2SAT 100
== END 2019-11-08 16:52 | disposition short-term general hospital (02) ==
LOC: ER 13:36
DX: I48.91 Unspecified atrial fibrillation (principal); I48.92 Unspecified atrial flutter; I50.20 Unspecified systolic (congestive) heart failure; N17.9 Acute kidney failure, unspecified; E11.22 Type 2 diabetes mellitus with diabetic chronic kidney disease; I12.9 Hypertensive chronic kidney disease with stage 1 through stage 4 chronic kidney disease, or unspecified chronic kidney disease; N18.9 Chronic kidney disease, unspecified; G40.909 Epilepsy, unspecified, not intractable, without status epilepticus; Z95.810 Presence of automatic (implantable) cardiac defibrillator; Z79.01 Long term (current) use of anticoagulants
CPT/HCPCS: 96365; 96361; 93005 ×3; 85025; 80048; 36415; 83735; 85610; 80162; 82947; 80076; 80185; 84443; 84484; 83880; 71045; 96375; 99285; J1160; J3475; J7030

== ENCOUNTER 2020-05-31 20:36 | Emergency (ER) | payer MEDICARE, OTHER ==
--- OUTSIDE RECORDS SUMMARY | 2020-05-31 20:39 | XMS REPORT | Continuity of Care Document ---
:1945 Author Organization [facility] t Address [address] [place] [address] Care Team Providers Name Role Phone Jazmyne BURK, A Attending Clinician Unavailable Problems This patient has no known problems. Allergies, Adverse Reactions, Alerts This patient has no known allergies or adverse reactions. Medications This patient has no known medications. Procedures This patient has no known procedures. Encounters Start End Encounter Admission Attending Care Care Encounter Source Date/Time Date/Time Type Type Clinicians Facility Department ID 2020-05-20 2020-05-20 Telephone YANA Samano [id number] 00:00:00 00:00:00 Teri RENEE [id number] [facility] [id number] Results This patient has no known results.
[2020-05-31] MEDS ORDERED: LORAZEPAM 1 MG TABLET ONE (21:12)
[2020-05-31 21:39] LABS: Protime INR 0.88
[2020-05-31 21:47] LABS: ALT/SGPT 23 U/L (12-78); AST/SGOT 14 U/L (15-37); Albumin 3.3 g/dL (3.4-5.0); Alkaline Phosphatase 144 U/L (45-117); BUN Blood Urea Nitrogen 40 mg/dL (7-18); Bicarbonate 25 mmol/L (21-32); Bilirubin Direct < 0.1 mg/dL (0-0.2); Bilirubin Total 0.2 mg/dL (0.2-1.0); Glucose Level 220 mg/dL (74-106); Magnesium 2.5 mg/dL (1.8-2.4); NT PRO-BNP 3945 pg/mL (<125); Potassium 4.8 mmol/L (3.5-5.1); Protein, Total 7.4 g/dL (6.4-8.2); Sodium Level 142 mmol/L (136-145); Troponin (Emerg Dept Use Only) < 0.02 ng/mL (0.0-0.045)
[2020-05-31 21:56] LABS: Absolute Lymphocytes (CBC) 1.8 K/uL (0.7-4.9); Basophils % 0.4 % (0-1.3); Hematocrit 36.8 % (36.0-45.0); Lymphocytes % 19.7 % (15.3-44.8); MPV 10.4 fL (7.6-11.3); RBC Red Blood Cell Count 3.89 M/uL (3.86-4.86)
[2020-05-31 22:36] LABS: Blood Morphology Comment NOT SEEN (NOT SEEN); Platelet Estimate ADEQ; White Blood Cell Scan OK (OK)
--- NOTE | 2020-05-31 22:50 | ER ---
Nurse's Notes [facility] Name: Teena Simpson Age: 75 yrs Sex: Female : 1945 Arrival Date: 05/31/2020 Time: 20:43 Bed 24 Private MD: Diagnosis: Anxiety disorder, unspecified Presentation: 05/31 20:45 Chief complaint: Patient's son or daughter states: she started to have chest pain rr5 started around 2000H after she heard her pass away. 20:45 Coronavirus screen: Client denies travel out of the [place] in the last 14 days. At this rr5 time, the client does not indicate any symptoms associated with coronavirus-19. Ebola Screen: Patient negative for fever greater than or equal to 101.5 degrees Fahrenheit, and additional compatible Ebola Virus Disease symptoms Patient denies exposure to infectious person. Patient denies travel to an Ebola-affected area in the 21 days before illness onset. Initial Sepsis Screen: Does the patient meet any 2 criteria? No. Patient's initial sepsis screen is negative. Does the patient have a suspected source of infection? No. Patient's initial sepsis screen is negative. Risk Assessment: Do you want to hurt yourself or someone else? Patient reports no desire to harm self or others. Onset of symptoms was May 31, 2020 at 20:00. 20:45 Method Of Arrival: Ambulatory rr5 20:45 Acuity: TYSON 3 rr5 Triage Assessment: 21:00 General: Appears in no apparent distress. uncomfortable, Behavior is cooperative, rr5 anxious. Pain: Complains of pain in chest and left breast and anterior aspect of left upper chest. Historical: - Allergies: 20:50 No Known Allergies; rr5 - PMHx: 20:50 Anxiety; Atrial Fib; CHF; Diabetes - IDDM; High Cholesterol; Hypertension; Low HR; rr5 Myocardial infarction; neuropathy; Seizures; - PSHx: 20:50 defibrillator; rr5 - Immunization history:: Adult Immunizations up to date. - Social history:: Smoking status: unknown Patient/guardian denies using alcohol, street drugs. - Family history:: not pertinent. Screenin:00 Abuse screen: Denies threats or abuse. Denies injuries from another. Nutritional rr5 screening: No deficits noted. Tuberculosis screening: No symptoms or risk factors identified. Fall Risk IV access (20 points). Total Lynch Fall Scale indicates No Risk (0-24 pts). Assessment: 21:00 General: Appears in no apparent distress. uncomfortable, Behavior is cooperative, rr5 appropriate for age, anxious. 21:00 Pain: Complains of pain in anterior aspect of left upper chest and left breast Pain rr5 does not radiate. Pain currently is 5 out of 10 on a pain scale. Quality of pain is described as aching, pressure, Pain began gradually, Is intermittent. Neuro: Level of Consciousness is awake, alert, obeys commands, Oriented to person, place, time. Cardiovascular: Reports chest pain, Capillary refill < 3 seconds Patient's skin is warm and dry. Respiratory: Airway is patent Respiratory effort is even, unlabored, Respiratory pattern is regular, symmetrical. Derm: Skin is intact, is healthy with good turgor, Skin temperature is warm. Musculoskeletal: Capillary refill < 3 seconds. 22:00 Reassessment: Patient appears in no apparent distress at this time. Patient is alert, rr5 oriented x 3, equal unlabored respirations, skin warm/dry/pink. Patient states symptoms have improved. 23:00 Reassessment: Patient appears in no apparent distress at this time. Patient is alert, rr5 oriented x 3, equal unlabored respirations, skin warm/dry/pink. discharge instruction given and explained without complaints made Patient states feeling better. Patient states symptoms have improved. Vital Signs: 20:45 BP 188 / 68; Pulse 86; Resp 19; Temp 97.8; Pulse Ox 99% ; Weight 84.82 kg; Height 5 ft. rr5 0 in. (152.40 cm); Pain 7/10; 22:10 BP 171 / 100; Pulse 85; Resp 19; Pulse Ox 99% ; rr5 22:50 BP 166 / 95; Pulse 80; Resp 16; Pulse Ox 99% ; rr5 20:45 Body Mass Index 36.52 (84.82 kg, 152.40 cm) rr5 ED Course: 20:43 Patient arrived in ED. rr5 20:43 Sylvie Peacock MD is Attending Physician. ma2 20:49 Triage completed. rr5 20:50 Arm band placed on right wrist. rr5 20:53 Ihsan Singh RN is Primary Nurse. rr5 20:58 XRAY Chest (1 view) In Process Unspecified. EDMS 21:00 Patient has correct armband on for positive identification. Placed in gown. Bed in low rr5 position. Call light in reach. Side rails up X2. media monitor on. Pulse ox on. NIBP on. 21:00 Inserted saline lock: 24 gauge in right forearm, using aseptic technique. Blood rr5 collected. 21:00 EKG done, by ED staff, reviewed by Sylvie Peacock MD. rr5 23:00 No provider procedures requiring assistance completed. IV discontinued, intact, rr5 bleeding controlled, No redness/swelling at site. Pressure dressing applied. Patient maintains SpO2 saturation greater than 95% on room air. Administered Medications: 20:55 Drug: Ativan (LORazepam) 1 mg Route: PO; rr5 22:00 Follow up: Response: No adverse reaction; Marked relief of symptoms; Pain is decreased; rr5 Anxiety decreased Outcome: 22:50 Discharge ordered by . ma2 23:05 Discharged to home ambulatory. rr5 23:05 Condition: stable 23:05 Discharge instructions given to patient, family, Instructed on discharge instructions, follow up and referral plans. medication usage, Demonstrated understanding of instructions, follow-up care. 23:07 Patient left the ED. rr5 Signatures: Dispatcher [employer] [facility] Sylvie Peacock MD MD ma2 Ihsan Singh, RN RN rr5
--- NOTE | 2020-05-31 22:50 | EDPHYS ---
Physician Documentation [facility] Name: Teena Simpson Age: 75 yrs Sex: Female : 1945 Arrival Date: 05/31/2020 Time: 20:43 Bed 24 Private MD: ED Physician Sylvie Peacock HPI: 05/31 22:45 This 75 yrs old Female presents to ER via Ambulatory with complaints of ma2 ANXIETY. 22:45 Onset: suddenly, 1 hour(s) ago. Associated signs and symptoms: Pertinent negatives: ma2 cough, headache, lower extremity swelling, lightheadedness, shortness of breath, vomiting. Duration: The patient or guardian reports a single episode, that is now resolved. The patient has not experienced similar symptoms in the past. I INFORMED HER THAT HER , and then started to have sob and anxiety.. n ochest pain, want to go home now . Historical: - Allergies: 20:50 No Known Allergies; rr5 - PMHx: 20:50 Anxiety; Atrial Fib; CHF; Diabetes - IDDM; High Cholesterol; Hypertension; Low HR; rr5 Myocardial infarction; neuropathy; Seizures; - PSHx: 20:50 defibrillator; rr5 - Immunization history:: Adult Immunizations up to date. - Social history:: Smoking status: unknown Patient/guardian denies using alcohol, street drugs. - Family history:: not pertinent. ROS: 22:45 Constitutional: Negative for fever, chills, and weight loss. ma2 22:45 All other systems are negative. Exam: 22:45 Constitutional: This is a well developed, well nourished patient who is awake, alert, ma2 and in no acute distress. ENT: Nares patent. No nasal discharge, no septal abnormalities noted. Tympanic membranes are normal and external auditory canals are clear. Oropharynx with no redness, swelling, or masses, exudates, or evidence of obstruction, uvula midline. Mucous membranes moist. Neck: Trachea midline, no thyromegaly or masses palpated, and no cervical lymphadenopathy. Supple, full range of motion without nuchal rigidity, or vertebral point tenderness. No Meningismus. Chest/axilla: Normal chest wall appearance and motion. Nontender with no deformity. No lesions are appreciated. Cardiovascular: Regular rate and rhythm with a normal S1 and S2. No gallops, murmurs, or rubs. Normal PMI, no JVD. No pulse deficits. Respiratory: Lungs have equal breath sounds bilaterally, clear to auscultation and percussion. No rales, rhonchi or wheezes noted. No increased work of breathing, no retractions or nasal flaring. Abdomen/GI: Soft, non-tender, with normal bowel sounds. No distension or tympany. No guarding or rebound. No evidence of tenderness throughout. Back: No spinal tenderness. No costovertebral tenderness. Full range of motion. Skin: Warm, dry with normal turgor. Normal color with no rashes, no lesions, and no evidence of cellulitis. MS/ Extremity: Pulses equal, no cyanosis. Neurovascular intact. Full, normal range of motion. Neuro: Awake and alert, GCS 15, oriented to person, place, time, and situation. Cranial nerves II-XII grossly intact. Motor strength 5/5 in all extremities. Sensory grossly intact. Cerebellar exam normal. Normal gait. Vital Signs: 20:45 BP 188 / 68; Pulse 86; Resp 19; Temp 97.8; Pulse Ox 99% ; Weight 84.82 kg; Height 5 ft. rr5 0 in. (152.40 cm); Pain 7/10; 22:10 BP 171 / 100; Pulse 85; Resp 19; Pulse Ox 99% ; rr5 22:50 BP 166 / 95; Pulse 80; Resp 16; Pulse Ox 99% ; rr5 20:45 Body Mass Index 36.52 (84.82 kg, 152.40 cm) rr5 MDM: 20:43 Patient medically screened. ma2 22:45 Differential diagnosis: anxiety, gastritis, gastroesophageal reflux disease (GERD), ma2 stable angina. Differential diagnosis: pleurisy, stable angina. Data reviewed: vital signs, nurses notes. Counseling: I had a detailed discussion with the patient and/or guardian regarding: the historical points, exam findings, and any diagnostic results supporting the discharge/admit diagnosis, the presence of at least one elevated blood pressure reading (>120/80) during this emergency department visit, the need for outpatient follow up. Medical screen evaluation completed. [facility] emergency medical condition absent. Response to treatment: the patient's symptoms have resolved after treatment. 05/31 20:44 Order name: Basic Metabolic Panel [facility] 05/31 20:44 Order name: CBC with Diff [facility] 05/31 20:44 Order name: LFT's [facility] 05/31 20:44 Order name: Magnesium [facility] 05/31 20:44 Order name: NT PRO-BNP [facility] 05/31 20:44 Order name: PT-INR [facility] 05/31 20:44 Order name: Troponin (emerg Dept Use Only) [facility] 05/31 20:44 Order name: Basic Metabolic Panel; Complete Time: 22:34 EDMS 05/31 20:45 Order name: CBC with Automated Diff; Complete Time: 22:43 EDMS 05/31 20:45 Order name: Liver (Hepatic) Function; Complete Time: 22:34 EDMS 05/31 20:45 Order name: Magnesium; Complete Time: 22:34 EDMS 05/31 20:45 Order name: NT PRO-BNP; Complete Time: 22:34 EDMS 05/31 20:45 Order name: Troponin (Emerg Dept Use Only); Complete Time: 22:34 EDMS 05/31 20:45 Order name: Protime (+INR); Complete Time: 22:34 EDMS 05/31 20:44 Order name: XRAY Chest (1 view) [facility] 05/31 20:44 Order name: EKG; Complete Time: 20:45 [facility] 05/31 20:44 Order name: Cardiac monitoring; Complete Time: 21:38 [facility] 05/31 20:44 Order name: EKG - Nurse/Tech; Complete Time: 21:38 [facility] 05/31 20:44 Order name: IV Saline Lock; Complete Time: 21:38 [facility] 05/31 20:44 Order name: Labs collected and sent; Complete Time: 21:38 [facility] 05/31 20:44 Order name: O2 Per Protocol; Complete Time: 21:38 [facility] 05/31 20:44 Order name: O2 Sat Monitoring; Complete Time: 21:38 [facility] 05/31 21:58 Order name: CBC Smear Scan; Complete Time: 22:43 EDMS Administered Medications: 20:55 Drug: Ativan (LORazepam) 1 mg Route: PO; rr5 22:00 Follow up: Response: No adverse reaction; Marked relief of symptoms; Pain is decreased; rr5 Anxiety decreased Disposition: 05/31/20 22:50 Discharged to Home. Impression: Anxiety disorder, unspecified. - Condition is Stable. - Discharge Instructions: Generalized Anxiety Disorder. - Medication Reconciliation Form, Thank You Letter, Antibiotic Education, Prescription Opioid Use form. - Follow up: Private Physician; When: Tomorrow; Reason: If symptoms return. Signatures: Dispatcher [employer] EDSylvie Reynoso MD MD ma2 Ihsan Singh RN RN rr5 Corrections: (The following items were deleted from the chart) 23:07 22:50 05/31/2020 22:50 Discharged to Home. Impression: Anxiety disorder, unspecified. rr5 Condition is Stable. Forms are Medication Reconciliation Form, Thank You Letter, Antibiotic Education, Prescription Opioid Use. Follow up: Private Physician; When: Tomorrow; Reason: If symptoms return. adair2
[2020-05-31 23:14] VITALS: TEMP 97.8; O2SAT 99
[2020-05-31 23:15] VITALS: BP 166/95
--- NOTE | 2020-06-01 09:02 | RAD REPORT ---
EXAM DESCRIPTION: RAD - Chest Single View - 05/31/2020 8:59 pm CLINICAL HISTORY: CHEST PAIN Chest pain. COMPARISON: Chest Single View dated 11/08/2019; Chest Single View dated 07/22/2019; Chest Single View d ated 07/18/2019; Chest Single View dated 07/16/2019 FINDINGS: Portable technique limits examination quality. Mild pulmonary edema is present. The heart is moderately enlarged with multilead pacer/defibrillator device. No displaced fractures. IMPRESSION: Mild CHF versus volume overload.
--- NOTE | 2020-06-01 16:35 | EKG ---
Test Date: 2020-05-31 Test Time: 20:59:31 Nuclear Physicist: RR MEASUREMENT RESULTS: Intervals: Rate: 90 WI: 156 QRSD: 140 QT: 440 QTc: 538 Basye: P: 67 WI: 156 QRS: -22 T: 97 INTERPRETIVE STATEMENTS: Atrial-sensed ventricular-paced rhythm Abnormal ECG Compared to ECG 11/08/2019 14:11:06 Uncertain supraventricular rhythm no longer present Ventricular premature complex(es) no longer present Right bundle-branch block no longer present Left anterior fascicular block no longer present Bifascicular block no longer present Left ventricular hypertrophy no longer present Myocardial infarct finding no longer present Electronically Signed On 06-01-20 16:32:59 CDT by Ross Graf
== END 2020-05-31 23:07 | disposition home or self-care (01) ==
LOC: ER 20:36
DX: F41.9 Anxiety disorder, unspecified (principal); I10 Essential (primary) hypertension; I25.2 Old myocardial infarction
CPT/HCPCS: 36415; 71045; 80048; 80076; 83735; 83880; 84484; 85025; 85610; 93005; 99285

== ENCOUNTER 2021-03-10 21:00 | Observation (INO) | payer OTHER ==
--- OUTSIDE RECORDS SUMMARY | 2021-03-10 21:06 | XMS REPORT | Continuity of Care Document ---
:1945 Author Organization Formerly [facility] t Address [address] [place] [address] Care Team Providers Name Role Phone Blanka SQUIRES, A Primary Care Physician LESLIE EVANS Attending Clinician Unavailable Aiden SQUIRES Attending Clinician Leslie Evans MD Attending Clinician David Castro MD Attending Clinician Maulik SCOTT, A Attending Clinician Jazmyne BURK, A Attending Clinician Unavailable LESLIE EVANS Admitting Clinician Unavailable Leslie Evans MD Admitting Clinician Payers Payer Name Policy Type Policy Number Effective Date Expiration Date Lucy LOZANO/SANDRA [id number] 2019 MEDICARE ADVANTAGE 00:00:00 Advance Directives Directive Decision Effective Termination Comments Source Date Date Healthcare Agents on N/A [facility] FileNameRelationshF[facility] Hospitaleal[facility] Agent Medical RelationshipCommunicationGraciela Branch NegreteChildHealth Care [phone] (Mobile) [email or web address] Problems Condition Condition Condition Status Onset Resolution Last Treating Co mments Source Name Details Category Date Date Treatment Clinician Date GI bleed GI bleed Disease Active Unive rs 1-17 ity of 00:00: [place] [facility] Rectal Rectal Disease Active Overview: Univer s bleeding bleeding 1-17 Formattin ity of 00:00: g of this [place] note Medical might be Branch different from the original. Added automatic ally from request for surgery [id number] Refusal of Refusal of Disease Active 2020-02 U nivers blood blood 2-13 ity of transfusio transfusio [place] 00 Medical patient is patient is Br zenon [employer] Osteopenia Osteopenia Disease Active 2020-02 U nivers 1-09 ity of 00:00: [place] 00 Medical Branch UTI UTI Disease Active 2019-02 Univers (urinary (urinary 0-08 ity of tract tract 00:00: [place] infection) infection) 00 Ks dical Branch Chronic Chronic Disease Active 2019-02 Univers systolic systolic 0-08 ity of CHF CHF 00:00: [place] (congestiv (congestiv 00 Me dical e heart e heart Branch failure), failure), NYHA class NYHA class 3 3 Atrial Atrial Disease Active Univers fibrillati fibrillati 9-19 it y of on with on with 00:00: [place] RVR RVR 00 Medical Branch Spontaneou Spontaneou Disease Active 2018-02 U nivers s s 1-21 ity of ecchymoses ecchymoses 00:00: [place] Multiple Multiple Disease Active 2018-02 Overview: Un araseli thyroid thyroid 0-30 Formattin ity o f nodules nodules 00:00: g of this [place] note Medical might be Branch different from the original. "no worrisome features" per [place] 12/18/18 PAF PAF Disease Active 2018-02 Univers (paroxysma (paroxysma 0-21 it y of l atrial l atrial 00:00: [place] fibrillati fibrillati 00 Me dical on) on) Branch Chronic Chronic Disease Active 2018-02 Univers diastolic diastolic 0-21 ity of congestive congestive 00:00: [place] heart heart 00 Medical failure failure Branch Obesity Obesity Disease Active 2018-02 Univers (BMI (BMI 0-21 ity of 30-39.9) 30-39.9) 00:00: [place] 00 Medical Branch Orthostati Orthostati Disease Active 2019- U nivers c c 0-21 ity of hypotensio hypotensio 00:00: [place] n n 00 Medical Branch FELICIA (acute FELICIA (acute Disease Active 2018-02 U nivers kidney kidney 0-21 ity of injury) injury) 00:00: [place] 00 Medical Branch Dizzy Dizzy Disease Active 2018-02 Univers spells spells 0-19 ity of 00:00: [place] 00 Medical Branch Acute on Acute on Disease Active Unive rs chronic chronic 9-11 ity of anemia anemia 00:00: [place] 00 Medical Branch Atypical Atypical Disease Active Unive rs chest pain chest pain 5-09 it y of 00:00: [place] 00 Medical Branch Left arm Left arm Disease Active Unive rs pain pain 5-08 ity of 00:00: [place] 00 Medical Branch Arthritis Arthritis Disease Active 2019 Uni vers of lumbar of lumbar 1-07 ity of spine spine 00:00: [place] 00 Medical Branch Degenerati Degenerati Disease Active 2019- U lorrieers ve ve 1-07 ity of arthritis arthritis 00:00: [place] of lumbar of lumbar 00 Medi sandra spine spine Branch Spondyloli Spondyloli Disease Active 2019- U nivers sthesis, sthesis, 1-07 ity of lumbar lumbar 00:00: [place] region region 00 Medical Branch DDD DDD Disease Active 2019- Univers (degenerat (degenerat 1-07 it y of fernando disc fernando disc 00:00: [place] disease), disease), 00 Medi sandra lumbar lumbar Branch Osteoarthr Osteoarthr Disease Active 2019- U nivers itis of itis of 1-07 ity of left knee left knee 00:00[place] Dyspnea Dyspnea Disease Active 2017-02 Univers 2-26 ity of 00:00: [place] 00 Medical Branch Acute on Acute on Disease Active 2017-02 Unive rs chronic chronic 2-26 ity of combined combined 00:00: [place] systolic systolic 00 Medica l and and Branch diastolic diastolic congestive congestive heart heart failure failure Chronic Chronic Disease Active 2017-02 Univers nausea nausea 2-26 ity of 00:00: [place] 00 Medical Branch Dysphagia Dysphagia Disease Active 2017-02 Uni vers 2-26 ity of 00:00: Medical Branch Fatty Fatty Disease Active Univers liver liver 5-21 ity of 00:00: Medical Branch Abnormal Abnormal Disease Active Unive rs LFTs LFTs 5-11 ity of 00:00: [place] [facility] Multiple Multiple Disease Active Overview: Un araseli renal renal 5-11 Formattin ity of cysts cysts 00:00: g of this note Medical might be Branch different from the original. Bosniak Type [address] Hyperkalem Hyperkalem Disease Active U nivers ia ia 5-11 ity of 00:00: Medical Branch History of History of Disease Active U nivers colon colon 5-03 ity of polyps polyps 00:00: [place] [facility] History of History of Disease Active U nivers pulmonary pulmonary 2-17 ity of embolism embolism 00:00: [place] [facility] ICD ICD Disease Active Univers (implantab (implantab 2-17 it y of le le 00:00: [place] cardiovert cardiovert 00 Me dical er-defibri er-defibri Br anch llator) in llator) in place place Atrial Atrial Disease Active Univers fibrillati fibrillati 1-16 it y of on on 00:00: [place] [facility] Syncope Syncope Disease Active Univers 1-15 ity of 00:00: [address] Branch DM DM Disease Active Univers (diabetes (diabetes 8-31 ity of mellitus), mellitus), 00:00: [place] type 2 type 2 00 Medical with renal with renal Br anch complicati complicati ons ons Anxiety Anxiety Disease Active Univers ity of [facility] CKD CKD Disease Active Univers (chronic (chronic ity of kidney kidney [place] disease) disease) Medica l stage 4, stage 4, Branch GFR 15-29 GFR 15-29 ml/min ml/min Epilepsy Epilepsy Disease Active Unive rs ity of [facility] Esophageal Esophageal Disease Active U nivers reflux reflux ity of [facility] HLD HLD Disease Active Univers (hyperlipi (hyperlipi it y of demia) demia) [facility] HTN HTN Disease Active Univers (hypertens (hypertens it y of ion) ion) [facility] 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 [place] [facility] ASHLYN ASHLYN Disease Active Univers (obstructi (obstructi it y of ve sleep ve sleep [place] apnea) apnea) Medical [place] Allergies, Adverse Reactions, Alerts Allergy Allergy Status Severity Reaction(s) Onset Inactive Treating Comm ents Source Name Type Date Date Clinician Ciproflo Drug Active Other - See 2020-02 myalgia Un araseli xacin Intolera comments 2-13 ity of nce 00:00: [place] 00 Medical Branch Amoxicil Drug Active Other - See 2020-02 Myalgia Un araseli ryder-Pot Intolera comments 2-13 ity o f Clavulan nce 00:00: [place] ate 00 [facility] AMOXICIL DRUG Active Low Other-Cmnt 2020-02 Univ ers RYDER-POT 2-13 ity of CLAVULAN 00:00: [place] ATE 00 [facility] CIPROFLO DRUG Active Low Other-Cmnt 2020-02 Univ ers XACIN INGREDI 2-13 ity of 00:00: [place] [address] [place] [address] Social History Social Habit Start Date Stop Date Quantity Comments Source Exposure to Not sure [facility] SARS-CoV-2 [facility] (event) [place] Alcohol intake 2021-03-10 2021-03-10 Current [place] of 00:00:00 00:00:00 non-drinker of [facility] alcohol [place] (finding) Tobacco Comment 2021-03-07 2021-03-07 exposed to "a Univer sity of 00:00:00 00:00:00 lot" of passive [place] Med ical smoke from Branch Tobacco use and 2019-12-09 2019-12-09 Never used Universit y of exposure 00:00:00 00:00:00 [facility] Sex [birth year] Universit y of 00:00:00 00:00:00 [facility] Smoking Status Start Date Stop Date Source Never smoker [facility] Medications Ordered Filled Start Stop Current Ordering Indication Dosage Frequency Signature Comments Components Source Medication Medication Date Date Medication? Clinician (SIG) Name Name apixaban Yes 5mg 5 mg, Univers (ELIQUIS) 1-20 Oral, BID, ity of tablet 5 mg 16:00: First dose [place] 00 (after Medical last Branch modificati on) on Deborah 03/10/21 at 1000, Until Discontinu ed, Routine
Indicatio ns: Non-Valvul ar Atrial Fibrillati on apixaban Yes 5mg 5 mg, Univers (ELIQUIS) 1-20 Oral, BID, ity of tablet 5 mg 16:00: First dose (after Medical last Branch modificati on) on [facility] 03/10/21 at 1000, Until Discontinu ed, Routine
Indicatio ns: Non-Valvul ar Atrial Fibrillati on phenylephri Yes 1{suppo 1 Uni vers ne-cocoa 1-20 sitory} Suppositor it y of butter 02:00: y, Rectal, [place] (PREPARATIO 00 BID, First Me dical N H) dose on Branch 0.25-88.44 Wed % 03/09/21 at suppository 1999, 1 Until Suppository Discontinu ed, Routine phenylephri Yes 1{suppo 1 Uni vers ne-cocoa 1-20 sitory} Suppositor it y of butter 02:00: y, Rectal, [place] (PREPARATIO 00 BID, First Me dical N H) dose on Branch 0.25-88.44 Wed % 03/09/21 at suppository 1999, 1 Until Suppository Discontinu ed, Routine KCL 2021- No 40meq 40 mEq, Univers (KLOR-CON 03-10 Oral, ity of M20) tablet 00:30: 23:50 ONCE, 1 [place] 40 mEq 00 :00 dose, On Medical Wed Branch 03/09/21 at 1830, Routine KCL 2021- No 40meq 40 mEq, Univers (KLOR-CON 03-10 Oral, ity of M20) tablet 00:30: 23:50 ONCE, 1 [place] 40 mEq 00 :00 dose, On Medical Wed Branch 03/09/21 at 1830, Routine amLODIPine Yes [id number] 5mg Take 1 U nivers 5 mg tablet 1-20 tablet by ity of 00:00: mouth 00 daily. Medical Branch metoprolol 2021- Yes [id number] 25mg Take 1 Univers succinate 20 02-04 tablet by ity of XL 25 mg 24 00:00: 05:59 mouth 2 [place] hr tablet 00 :00 (two) Medical times [place] daily for 14 days. pantoprazol 2021-0 Yes 40mg 40 mg, Univ ers e 03-09 Oral, ity of (PROTONIX) 15:00: DAILY, [place] EC tablet 00 First dose Medi sandra 40 mg on Sun03/09/21 at 0900, Until Discontinu ed, Routine pantoprazol 0 Yes 40mg 40 mg, Univ ers e 03-09 Oral, ity of (PROTONIX) 15:00: DAILY, [place] EC tablet 00 First dose Medi sandra 40 mg on Sun03/09/21 at 0900, Until Discontinu ed, Routine insulin NPH 0 Yes .36U/kg 16 Units Univers (HUMULIN N) 03-09 /d (rounded ity of injection 03:00: from [place] 16 Units 00 16.002 Medical Units = Branch 0.36 Units/kg/d ay ?88.9 kg), Subcutaneo us, QAM+HS, First dose (after last modificati on) on Sun03/08/21 at 2100, Until Discontinu ed, Routine insulin NPH 2021-0 Yes .36U/kg 16 Units Univers (HUMULIN N) 03-09d (rounded ity of injection 03:00: from [place] 16 Units 00 16.002 Medical Units = Branch 0.36 Units/kg/d ay ?88.9 kg), Subcutaneo us, QAM+HS, First dose (after last modificati on) on Sun03/08/21 at 2100, Until Discontinu ed, Routine ondansetron 2021-0 Yes 4mg 4 mg, Slow Univers (ZOFRAN 1-18 IV Push, ity of (PF)) 23:39: Q6HPRN, [place] injection 4 32 Starting Medi sandra mg on Sun03/08/21 at 1739, Until Discontinu ed, Routine, Nausea and Vomiting (N/V) ondansetron 2021-0 Yes 4mg 4 mg, Slow Univers (ZOFRAN 1-18 IV Push, ity of (PF)) 23:39: Q6HPRN, [place] injection 4 32 Starting Medi sandra mg on Sun Branch 03/08/21 at 1739, Until Discontinu ed, Routine, Nausea and Vomiting (N/V) bisacodyL 2021- No 10mg 10 mg, Unive rs (DULCOLAX) 03-08 Oral, ity of tablet 10 23:39: 02:58 PRE-PROCED [place] mg 32 :00 URE ONCE, Medical 1 dose, Branch Starting on Sun03/08/21 at 1739, Until Discontinu ed, Routine, Bowel Prep, Colonoscop y peg-electro 2021- No 4000mL 4,000 mL, [facility] [place] [facility] lyte soln 03-08 Oral, PRN ity of (GOLYTELY) 23:39: 03:00 - SEE [place] [id number] 32 :00 INSTRUCTIO Me dical .74 -5.86 NS, 1 Branch gram dose, solution Starting 4,000 mL on Sun03/08/21 at 1739, Until Discontinu ed, Routine, Bowel Prep, colonoscop y bisacodyL 2021- No 10mg 10 mg, Unive rs (DULCOLAX) 03-08 Oral, ity of tablet 10 23:39: 03:46 PRE-PROCED [place] mg 32 :00 URE ONCE, Medical 1 dose, Branch Starting on Sun03/08/21 at 1739, Until Discontinu ed, Routine, Bowel Prep, Colonoscop y bisacodyL 2021- No 10mg 10 mg, Unive rs (DULCOLAX) 03-08 Oral, ity of tablet 10 23:39: 02:58 PRE-PROCED [place] mg 32 :00 URE ONCE, Medical 1 dose, Branch Starting on Sun03/08/21 at 1739, Until Discontinu ed, Routine, Bowel Prep, Colonoscop y peg-electro 2021- No 4000mL 4,000 mL, [facility] [place] [facility] lyte soln 03-08 Oral, PRN ity of (GOLYTELY) 23:39: 03:00 - SEE [place] [id number] 32 :00 INSTRUCTIO Me dical .74 -5.86 NS, 1 Branch gram dose, solution Starting 4,000 mL on 03/08/21 at 1739, Until Discontinu ed, Routine, Bowel Prep, colonoscop y bisacodyL 2021- No 10mg 10 mg, Unive rs (DULCOLAX) 03-08 Oral, ity of tablet 10 23:39: 03:46 PRE-PROCED [place] mg 32 :00 URE ONCE, Medical 1 dose, Branch Starting on [facility] 03/08/21 at 1739, Until Discontinu ed, Routine, Bowel Prep, Colonoscop y sennosides 2021-0 Yes 8.6mg 8.6 mg, Uni vers (SENOKOT) 03-08 Oral, ity of tablet 8.6 15:00: DAILY, [place] mg 00 First dose Medical on [facility] 03/08/21 at 0900, Until Discontinu ed, Routine sennosides 2021-0 Yes 8.6mg 8.6 mg, Uni vers (SENOKOT) 03-08 Oral, ity of tablet 8.6 15:00: DAILY, [place] mg 00 First dose Medical on [facility] 03/08/21 at 0900, Until Discontinu ed, Routine ramelteon 2021-2021- No 8mg 8 mg, Univer s (ROZEREM) 03-08 Oral, ity of tablet 8 mg 05:30: 05:38 ONCE, 1 [place] 00 :00 dose, On [facility] 03/07/21 at 2330, Routine ramelteon 2021-0 2021- No 8mg 8 mg, Univer s (ROZEREM) 03-08 Oral, ity of tablet 8 mg 05:30: 05:38 ONCE, 1 [place] 00 :00 dose, On [facility] 03/07/21 at 2330, Routine atorvastati 2021-0 Yes 40mg 40 mg, Univ ers n (LIPITOR) 03-08 Oral, QHS, it y of tablet 40 03:00: First dose [place] mg 00 on [facility] 03/07/21 at Branch 2100, Until Discontinu ed, Routine atorvastati 2021-0 Yes 40mg 40 mg, Univ ers n (LIPITOR) 03-08 Oral, QHS, it y of tablet 40 03:00: First dose [place] mg 00 on [facility] 03/07/21 at Branch 2100, Until Discontinu ed, Routine insulin NPH 2021-2021- No .42U/kg 19 Units Univers (HUMULIN N) 03-08d (rounded ity of injection 03:00: 19:38 from [place] 19 Units 00 :27 18.669 Medical Units = Branch 0.42 Units/kg/d ay ?88.9 kg), Subcutaneo us, QAM+HS, First dose (after last modificati on) on Sun03/07/21 at 2100, Until Discontinu ed, Routine insulin NPH 2021- No .42U/kg 19 Units Univers (HUMULIN N) 03-08d (rounded ity of injection 03:00: 19:38 from [place] 19 Units 00 :27 18.669 Medical Units = Branch 0.42 Units/kg/d ay ?88.9 kg), Subcutaneo us, QAM+HS, First dose (after last modificati on) on [facility] 03/07/21 at 2100, Until Discontinu ed, Routine phenytoin Yes 100mg 100 mg, Univ ers Extended 1-18 Oral, TID, ity o f (DILANTIN 02:00: First [place] KAPSEAL) 00 on [facility] Medical capsule 100 03/07/21 at Br anch mg 2000, Until Discontinu ed, Routine phenytoin 0 Yes 100mg 100 mg, Univ ers Extended 1-18 Oral, TID, ity o f (DILANTIN 02:00: First dose [place] KAPSEAL) 00 on [facility] Medical capsule 100 03/07/21 at Br anch mg 2000, Until Discontinu ed, Routine Sliding Yes Subcutaneo Univ ers Scale 1-17 us, TID ity of Insulin - 23:00: MEALS+HS, [place] Lispro 00 First dose Medical (HumaLOG) + on [facility] 03/07/21 at Testing 1700, Until Discontinu ed, Routine Sliding Yes Subcutaneo Univ ers Scale 1-17 us, TID ity of Insulin - 23:00: MEALS+HS, [place] Lispro 00 First dose Medical (HumaLOG) + on [facility] 03/07/21 at Testing 1700, Until Discontinu ed, Routine acetaminoph 2021-0 Yes 650mg 650 mg, Un araseli en 03-07 Oral, ity of (TYLENOL) 20:46: Q6HPRN, [place] tablet 650 15 Starting Medic al mg on Mon Branch 03/07/21 at 1446, Until Discontinu ed, Routine, Pain (scale 1-3) acetaminoph 0 Yes 650mg 650 mg, Un araseli en 17 Oral, ity of (TYLENOL) 20:46: Q6HPRN, [place] tablet 650 15 Starting Medic al mg on Mon Branch 03/07/21 at 1446, Until Discontinu ed, Routine, Pain (scale 1-3) apixaban 2020-02 Yes 5mg Take 1 Univers (ELIQUIS) 5 2-14 tablet by ity of mg tablet 00:00: mouth 2 [place] [address] (two) Medical times [place] daily. atorvastati 2020-02 Yes [id number] 40mg Take 1 Univers n 40 mg 2-14 tablet by ity of tablet 00:00: mouth at [place] 00 bedtime. Medical Branch insulin NPH 2020-02 Yes [id number] 20U inject 20 Univers (NOVOLIN N 2-14 Units ity of NPH U-100 00:00: under the [place] INSULIN) 00 skin every Medic al 100 unit/mL morning Branc h injection and evening. insulin 2020-02 Yes 8U inject 8 Univer s regular 2-14 Units ity of human 00:00: under the [place] (NOVOLIN R 00 skin Medical REGULAR daily. Branch U-100 Daily at [facility]) 100 noon unit/mL injection apixaban 2020-02 Yes 5mg Take 1 Univers (ELIQUIS) 5 2-14 tablet by ity of mg tablet 00:00: mouth 2 [place] [address] (two) Medical times [place] daily. atorvastati 2020-02 Yes [id number] 40mg Take 1 Univers n 40 mg 2-14 tablet by ity of tablet 00:00: mouth at [place] 00 bedtime. Medical Branch insulin NPH 2020-02 Yes [id number] 20U inject 20 Univers (NOVOLIN N 2-14 Units ity of NPH U-100 00:00: under the [place] INSULIN) 00 skin every Medic al 100 unit/mL morning Branc h injection and evening. insulin 2020-02 Yes 8U inject 8 Univer s regular 2-14 Units ity of human 00:00: under the [place] (NOVOLIN R 00 skin Medical REGULAR daily. Branch U-100 Daily at [facility]) 100 noon unit/mL injection apixaban 2020-02 Yes 5mg Take 1 Univers (ELIQUIS) 5 2-14 tablet by ity of mg tablet 00:00: mouth 2 [place] 00 (two) Medical times Branch daily. atorvastati 2020-02 Yes [id number] 40mg Take 1 Univers n 40 mg 2-14 tablet by ity of tablet 00:00: mouth at [place] 00 bedtime. Medical Branch insulin NPH 2020-02 Yes [id number] 20U inject 20 Univers (NOVOLIN N 2-14 Units ity of NPH U-100 00:00: under the [place] INSULIN) 00 skin every Medic al 100 unit/mL morning Branc h injection and evening. insulin 2020-02 Yes 8U inject 8 Univer s regular 2-14 Units ity of human 00:00: under the [place] (NOVOLIN R 00 skin Medical REGULAR daily. Branch U-100 Daily at [facility]) 100 noon unit/mL injection apixaban 2020-02 Yes 5mg Take 1 Univers (ELIQUIS) 5 2-14 tablet by ity of mg tablet 00:00: mouth 2 [place] 00 (two) Medical times Branch daily. atorvastati 2020-02 Yes [id number] 40mg Take 1 Univers n 40 mg 2-14 tablet by ity of tablet 00:00: mouth at [place] 00 bedtime. Medical Branch insulin NPH 2020-02 Yes [id number] 20U inject 20 Univers (NOVOLIN N 2-14 Units ity of NPH U-100 00:00: under the [place] INSULIN) 00 skin every Medic al 100 unit/mL morning Branc h injection and evening. insulin 2020-02 Yes 8U inject 8 Univer s regular 2-14 Units ity of human 00:00: under the [place] (NOVOLIN R 00 skin Medical REGULAR daily. Branch U-100 Daily at [facility]) 100 noon unit/mL injection hydrALAZINE 2020-02 Yes [id number] 50mg Take 1 Univers 50 mg 0-05 tablet by ity of tablet 00:00: mouth [place] 00 every 8 Medical (eight) Branch hours. hydrALAZINE 2020-02 Yes [id number] 50mg Take 1 Univers 50 mg 0-05 tablet by ity of tablet 00:00: mouth [place] 00 every 8 Medical (eight) Branch hours. hydrALAZINE 2020-02 Yes [id number] 50mg Take 1 Univers 50 mg 0-05 tablet by ity of tablet 00:00: mouth [place] 00 every 8 Medical (eight) Branch hours. hydrALAZINE 2020-02- No [id number] 50mg Take 1 Univers 50 mg 0-05 01-20 tablet by ity of tablet 00:00: 00:00 mouth [place] 00 :00 every 8 Medical (eight) Branch hours. METOPROLOL Yes [id number] TAKE 1 Univers SUCCINATE 9-28 TABLET BY ity o f XL 100 mg 00:00: MOUTH [place] 24 hr 00 TWICE A Medical tablet DAY Branch METOPROLOL Yes [id number] TAKE 1 Univers SUCCINATE 9-28 TABLET BY ity o f XL 100 mg 00:00: MOUTH [place] 24 hr 00 TWICE A Medical tablet DAY Branch METOPROLOL Yes [id number] TAKE 1 Univers SUCCINATE 9-28 TABLET BY ity o f XL 100 mg 00:00: MOUTH [place] 24 hr 00 TWICE A Medical tablet DAY Branch METOPROLOL 2021- No [id number] TAKE 1 Univers SUCCINATE 9-28 01-20 TABLET BY ity of XL 100 mg 00:00: 00:00 MOUTH [place] 24 hr 00 :00 TWICE A Medical tablet DAY Branch amLODIPine Yes 10mg Take 1 Unive rs 10 mg 9-27 tablet by ity of tablet 00:00: mouth [place] 00 daily. Medical Branch amLODIPine Yes 10mg Take 1 Unive rs 10 mg 9-27 tablet by ity of tablet 00:00: mouth [place] 00 daily. Medical Branch amLODIPine Yes 10mg Take 1 Unive rs 10 mg 9-27 tablet by ity of tablet 00:00: mouth [place] 00 daily. Medical Branch amLODIPine 2021- No 10mg Take 1 Univ ers 10 mg 9-27 01-20 tablet by ity of tablet 00:00: 00:00 mouth [place] 00 :00 daily. Medical Branch PHENYTOIN Yes [id number] TAKE 1 U nivers EXTENDED 8-07 CAPSULE BY ity o f 100 mg 00:00: MOUTH [place] capsule 00 EVERY Medical MORNING Branch AND 2 CAPSULES IN THE EVENING PHENYTOIN Yes [id number] TAKE 1 U nivers EXTENDED 8-07 CAPSULE BY ity o f 100 mg 00:00: MOUTH [place] capsule 00 EVERY Medical MORNING Branch AND 2 CAPSULES IN THE EVENING PHENYTOIN Yes [id number] TAKE 1 U nivers EXTENDED 8-07 CAPSULE BY ity o f 100 mg 00:00: MOUTH [place] capsule 00 EVERY Medical MORNING Branch AND 2 CAPSULES IN THE EVENING PHENYTOIN Yes [id number] TAKE 1 U nivers EXTENDED 8-07 CAPSULE BY ity o f 100 mg 00:00: MOUTH [place] capsule 00 EVERY Medical MORNING Branch AND 2 CAPSULES IN THE EVENING furosemide 2019-02 Yes [id number] 40mg Take 1 Univers 40 mg 0-01 tablet by ity of tablet 00:00: mouth 2 00 (two) Medical times Branch daily. furosemide 2019-02 Yes [id number] 40mg Take 1 Univers 40 mg 0-01 tablet by ity of tablet 00:00: mouth 2 (two) Medical times Branch daily. furosemide 2019-02 Yes [id number] 40mg Take 1 Univers 40 mg 0-01 tablet by ity of tablet 00:00: mouth 2 (two) Medical times Branch daily. furosemide 2019-02 Yes [id number] 40mg Take 1 Univers 40 mg 0-01 tablet by ity of tablet 00:00: mouth 2 00 (two) Medical times Branch daily. Blood-Gluco Yes Check Unive rs se Meter 5-15 glucose ity of Kit 00:00: once daily [place] 00 before Medical breakfast; Branch Diagnosis code E11.9 blood sugar Yes Check Unive rs diagnostic 5-15 glucose ity of (BLOOD 00:00: once daily [place] GLUCOSE 00 before Medical TEST) strip breakfast; Br anch Diagnosis code E11.9 Lancets Yes Check Univers Misc 5-15 glucose ity of 00:00: once daily [place] 00 before Medical breakfast; Branch Diagnosis code E11.9 Blood-Gluco Yes Check Unive rs se Meter 5-15 glucose ity of Kit 00:00: once daily [place] 00 before Medical breakfast; Branch Diagnosis code E11.9 blood sugar Yes Check Unive rs diagnostic 5-15 glucose ity of (BLOOD 00:00: once daily [place] GLUCOSE 00 before Medical TEST) strip breakfast; Br anch Diagnosis code E11.9 Lancets Yes Check Univers Misc 5-15 glucose ity of 00:00: once daily [place] 00 before Medical breakfast; Branch Diagnosis code E11.9 Blood-Gluco Yes Check Unive rs se Meter 5-15 glucose ity of Kit 00:00: once daily [place] 00 before Medical breakfast; Branch Diagnosis code E11.9 blood sugar Yes Check Unive rs diagnostic 5-15 glucose ity of (BLOOD 00:00: once daily [place] GLUCOSE 00 before Medical TEST) strip breakfast; Br anch Diagnosis code E11.9 Lancets Yes Check Univers Misc 5-15 glucose ity of 00:00: once daily [place] 00 before Medical breakfast; Branch Diagnosis code E11.9 Blood-Gluco Yes Check Unive rs se Meter 5-15 glucose ity of Kit 00:00: once daily [place] 00 before Medical breakfast; Branch Diagnosis code E11.9 blood sugar Yes Check Unive rs diagnostic 5-15 glucose ity of (BLOOD 00:00: once daily [place] GLUCOSE 00 before Medical TEST) strip breakfast; Br anch Diagnosis code E11.9 Lancets Yes Check Univers Misc 5-15 glucose ity of 00:00: once daily [place] 00 before Medical breakfast; Branch Diagnosis code E11.9 Immunizations Ordered Filled Immunization Date Status Comments [facility] e Immunization Name Name SARS-COV-2 COVID-19 2021-01-31 Completed Unive rsity of MODERNA BOOSTER 00:00:00 [place] [facility] ical VACCINE Branch SARS-COV-2 COVID-19 2021-01-31 Completed Unive rsity of MODERNA BOOSTER 00:00:00 [place] [facility] ical VACCINE Branch SARS-COV-2 COVID-19 2021-01-31 Completed Unive rsity of MODERNA BOOSTER 00:00:00 [place] [facility] ical VACCINE Branch SARS-COV-2 COVID-19 2021-01-31 Completed Unive rsity of MODERNA BOOSTER 00:00:00 [place] [facility] ical VACCINE Branch Influenza Virus 2020-12-03 Completed Universit y of Vaccine,quad 00:00:00 [place] [facility]ica l Im,preserve Free Branch 65+ Pneumococcal 2020-12-03 Completed University o f Polysaccharide, 00:00:00 [place] [facility] ical PPSV23 (PNEUMOVAX) Branch Influenza Virus 2020-12-03 Completed Universit y of Vaccine,quad 00:00:00 [place] [facility]ica [facility] Im,preserve Free Branch 65+ Pneumococcal 2020-12-03 Completed University o f Polysaccharide, 00:00:00 [place] [facility] ical PPSV23 (PNEUMOVAX) Branch Influenza Virus 2020-12-03 Completed Universit y of Vaccine,quad 00:00:00 [place] Medica [facility] Im,preserve Free Branch 65+ Pneumococcal 2020-12-03 Completed University o f Polysaccharide, 00:00:00 [place] [facility] ical PPSV23 (PNEUMOVAX) Branch Influenza Virus 2020-12-03 Completed Universit y of Vaccine,quad 00:00:00 [place] Medica l Im,preserve Free Branch 65+ Pneumococcal 2020-12-03 Completed University o f Polysaccharide, 00:00:00 [place] [facility] ical PPSV23 (PNEUMOVAX) Branch SARS-COV-2 COVID-19 2020-04-26 Completed Unive rsity of MODERNA VACCINE 00:00:00 [place] Med ical Branch SARS-COV-2 COVID-19 2020-04-26 Completed Unive rsity of MODERNA VACCINE 00:00:00 [place] [facility] ical Branch SARS-COV-2 COVID-19 2020-04-26 Completed Unive rsity of MODERNA VACCINE 00:00:00 [place] Med ical Branch SARS-COV-2 COVID-19 2020-04-26 Completed Unive rsity of MODERNA VACCINE 00:00:00 [place] [facility] ical Branch SARS-COV-2 COVID-19 2020-03-29 Completed Unive rsity of MODERNA VACCINE 00:00:00 [place] Med ical Branch SARS-COV-2 COVID-19 2020-03-29 Completed Unive rsity of MODERNA VACCINE 00:00:00 [place] [facility] ical Branch SARS-COV-2 COVID-19 2020-03-29 Completed Unive rsity of MODERNA VACCINE 00:00:00 [place] Med ical Branch SARS-COV-2 COVID-19 2020-03-29 Completed Unive rsity of MODERNA VACCINE 00:00:00 [facility] ical Branch Pneumococcal 13 2019-12-19 Completed Universit y of Conjugate, PCV13 00:00:00 [facility] (Prevnar 13) Branch Pneumococcal 13 2019-12-19 Completed Universit y of Conjugate, PCV13 00:00:00 [place] Me dical (Prevnar 13) Branch Pneumococcal 13 2019-12-19 Completed Universit y of Conjugate, PCV13 00:00:00 [place] Me dical (Prevnar 13) Branch Pneumococcal 13 2019-12-19 Completed Universit y of Conjugate, PCV13 00:00:00 [facility] (Prevnar 13) Branch Influenza Virus 2019-11-22 Completed Universit y of Vaccine Recomb Quad 00:00:00 [place] [facility] IM, Preserv and ABX Branc h Free 18-64 YRS Influenza Virus 2019-11-22 Completed Universit y of Vaccine Recomb Quad 00:00:00 [place] [facility] IM, Preserv and ABX Branc h Free 18-64 YRS Influenza Virus 2019-11-22 Completed Universit y of Vaccine Recomb Quad 00:00:00 [place] [facility] IM, Preserv and ABX Branc h Free 18-64 YRS Influenza Virus 2019-11-22 Completed Universit y of Vaccine Recomb Quad 00:00:00 [place] [facility] IM, Preserv and ABX Branc h Free 18-64 YRS HEP B, Adult Dosage 2018-03-25 Completed Unive rsity of 00:00:00 [facility] HEP B, Adult Dosage 2018-03-25 Completed Unive rsity of 00:00:00 [place] [facility] HEP B, Adult Dosage 2018-03-25 Completed Unive rsity of 00:00:00 [facility] HEP B, Adult Dosage 2018-03-25 Completed Unive rsity of 00:00:00 [place] [facility] HEP B, Adult Dosage 2017-10-10 Completed Unive rsity of 00:00:00 [place] [facility] HEP B, Adult Dosage 2017-10-10 Completed Unive rsity of 00:00:00 [place] [facility] HEP B, Adult Dosage 2017-10-10 Completed Unive rsity of 00:00:00 [place] [facility] HEP B, Adult Dosage 2017-10-10 Completed Unive rsity of 00:00:00 [facility] HEP B, Adult Dosage 2017-09-05 Completed Unive rsity of 00:00:00 [facility] Branch HEP B, Adult Dosage 2017-09-05 Completed Unive rsity of 00:00:00 [place] [facility] HEP B, Adult Dosage 2017-09-05 Completed Unive rsity of 00:00:00 [facility] HEP B, Adult Dosage 2017-09-05 Completed Unive rsity of 00:00:00 [facility] Pneumococcal 13 2015-02-19 Completed Universit y of Conjugate, PCV13 00:00:00 [facility] (Prevnar 13) Branch Pneumococcal 13 2015-02-19 Completed Universit y of Conjugate, PCV13 00:00:00 [place] [facility]ical (Prevnar 13) Branch Pneumococcal 13 2015-02-19 Completed Universit y of Conjugate, PCV13 00:00:00 [place] Me [facility]ical (Prevnar 13) Branch Pneumococcal 13 2015-02-19 Completed Universit y of Conjugate, PCV13 00:00:00 [facility] (Prevnar 13) Branch Pneumococcal 2011-02-19 Completed University o f Polysaccharide, 00:00:00 [place] [facility] ical PPSV23 (PNEUMOVAX) Branch Pneumococcal 2011-02-19 Completed University o f Polysaccharide, 00:00:00 [place] [facility] ical PPSV23 (PNEUMOVAX) Branch Pneumococcal 2011-02-19 Completed University o f Polysaccharide, 00:00:00 [place] [facility] ical PPSV23 (PNEUMOVAX) Branch Pneumococcal 2011-02-19 Completed University o f Polysaccharide, 00:00:00 [place] [facility] ical PPSV23 (PNEUMOVAX) Branch Vital Signs Vital Name Observation Time Observation Value Comments Source Systolic blood 2021-03-10 19:40:00 168 mm[Hg] Univer sity of pressure [facility] Diastolic blood 2021-03-10 19:40:00 70 mm[facility]Hg[facility] Heart rate 2021-03-10 17:29:00 87 /min [facility] Body temperature 2021-03-10 17:29:00 36.44 Lizz [facility] 2021-03-10 17:29:00 18 /min [facility] Oxygen saturation in 2021-03-10 17:29:00 95 /min [facility] Arterial blood by [facility] Pulse oximetry Branch Body height 2021-03-09 15:16:00 152.4 cm [facility] Body weight 2021-03-09 15:16:00 88.451 kg [facility] BMI 2021-03-09 15:16:00 38.08 kg/m2 [facility]i ty [facility] [place] [facility] Systolic blood 2021-03-09 15:42:00 139 mm[Hg] Univer sity of pressure [place] [facility] Diastolic blood 2021-03-09 15:42:00 55 mm[Hg] Unive rsity of pressure [place] [facility] Heart rate 2021-03-09 15:42:00 104 /min Universi ty [facility] [place] [facility] Respiratory rate 2021-03-09 15:42:00 18 /min Univ ersity of [place] [facility] Oxygen saturation in 2021-03-09 15:42:00 100 /min University of Arterial blood by [place] [facility] Pulse oximetry Branch Body height 2021-03-09 15:16:00 152.4 cm Universi ty [facility] [place] [facility] Body weight 2021-03-09 15:16:00 88.451 kg [facility]i ty of [place] [facility] [place] BMI 2021-03-09 15:16:00 38.08 kg/m2 [facility]i [facility] [place] [facility] Body temperature 2021-03-09 13:37:00 35.5 Lizz Univ ersity of [place] [facility] Systolic blood 2021-03-03 20:01:00 136 mm[Hg] Univer sity of pressure [place] [facility] Diastolic blood 2021-03-03 20:01:00 61 mm[Hg] Unive rsity of pressure [place] [facility] [place] Heart rate 2021-03-03 20:01:00 80 /min Universi ty of [place] [facility] [place] Body temperature 2021-03-03 20:01:00 36.83 Lizz Univ ersity of [place] [facility] Respiratory rate 2021-03-03 20:01:00 20 /min Univ ersity of [place] [facility] Body height 2021-03-03 20:01:00 152.4 cm [facility]i [facility] [place] [facility] Body weight 2021-03-03 20:01:00 89.812 kg [facility]i ty [facility] [place] [facility] BMI 2021-03-03 20:01:00 38.67 kg/m2 [facility]i [facility] [place] [facility] Oxygen saturation in 2021-03-03 20:01:00 98 /min University of Arterial blood by [facility] sandra Pulse oximetry Branch Procedures Procedure Date / Time Performing Clinician Source Performed POCT GLUCOSE (AUTOMATED) 2021-03-10 18:11:00 [facility] 2021-03-10 18:11:00 [facility] ([facility]OMATED) 2021-03-10 15:07:00 Christian [facility] POCT GLUCOSE (AUTOMATED) 2021-03-10 15:07:00 [facility] 2021-03-10 12:08:00 Becky [facility] BASIC METABOLIC PANEL 2021-03-10 12:08:00 Becky [facility] (NA, K, CL, CO2, GLUCOSE, Medica l Branch BUN, CREATININE, CA) CBC WITH DIFF 2021-03-10 12:08:00 Becky [facility] MAGNESIUM 2021-03-10 12:08:00 Becky [facility] BASIC METABOLIC PANEL 2021-03-10 12:08:00 Becky [facility] (NA, K, CL, CO2, GLUCOSE, Medica l Branch BUN, CREATININE, CA) CBC WITH DIFF 2021-03-10 12:08:00 Becky [facility] POCT GLUCOSE (AUTOMATED) 2021-03-10 02:34:00 Christian [facility] POCT GLUCOSE (AUTOMATED) 2021-03-10 02:34:00 Christian [facility] POCT GLUCOSE (AUTOMATED) 2021-03-09 23:48:00 Christian [facility] POCT GLUCOSE (AUTOMATED) 2021-03-09 23:48:00 Christian [facility] BASIC METABOLIC PANEL 2021-03-09 22:08:00 [facility] ([facility], K, CL, CO2, GLUCOSE, Medica l Branch BUN, CREATININE, CA) CBC WITHOUT DIFF 2021-03-09 22:08:00 Sandra [facility] BASIC METABOLIC PANEL 2021-03-09 22:08:00 [facility] (NA, K, CL, CO2, GLUCOSE, Medica l Branch BUN, CREATININE, CA) CBC WITHOUT DIFF 2021-03-09 22:08:00 [facility]) 2021-03-09 20:22:00 [facility] (AUTOMATED) 2021-03-09 20:22:00 Christian [facility] SURGICAL PATHOLOGY EXAM 2021-03-09 16:17:00 Misael Castro [facility] COLONOSCOPY 2021-03-09 15:42:00 GoiMsael singer [facility] COLONOSCOPY 2021-03-09 15:42:00 Misael Castro [facility] COLONOSCOPY (ENDO) 2021-03-09 15:17:00 [facility]O) 2021-03-09 15:17:00 Christian [facility] POCT GLUCOSE (AUTOMATED) 2021-03-09 13:39:00 Christian [facility] POCT GLUCOSE (AUTOMATED) 2021-03-09 13:39:00 Christian [facility] MAGNESIUM 2021-03-09 10:28:00 Too [facility] BASIC METABOLIC PANEL 2021-03-09 10:28:00 Renato Pena [facility] (NA, K, CL, CO2, GLUCOSE, Medica l Branch BUN, CREATININE, CA) CBC WITH DIFF 2021-03-09 10:28:00 Too [facility] MAGNESIUM 2021-03-09 10:28:00 Too [facility] BASIC METABOLIC PANEL 2021-03-09 10:28:00 Renato Pena [facility] (NA, K, CL, CO2, GLUCOSE, Medica l Branch BUN, CREATININE, CA) CBC WITH DIFF 2021-03-09 10:28:00 Hunter Gage [facility] ENDOSCOPY PROCEDURE 2021-03-09 06:01:00 Doctor Unassigned, [facility] DOCUMENTATION [facility] ENDOSCOPY PROCEDURE 2021-03-09 06:01:00 Doctor Unassigned, [facility] DOCUMENTATION [place] [facility] POCT GLUCOSE (AUTOMATED) 2021-03-09 03:19:00 Christian [facility] POCT GLUCOSE (AUTOMATED) 2021-03-09 03:19:00 Christian [facility] CBC WITHOUT DIFF 2021-03-09 01:55:00 Becky [facility] CBC WITHOUT DIFF 2021-03-09 01:55:00 Becky [facility] POCT GLUCOSE (AUTOMATED) 2021-03-08 23:10:00 [facility] POCT GLUCOSE (AUTOMATED) 2021-03-08 23:10:00 [facility] POCT GLUCOSE (AUTOMATED) 2021-03-08 17:41:00 [facility] POCT GLUCOSE (AUTOMATED) 2021-03-08 17:41:00 [facility] POCT GLUCOSE (AUTOMATED) 2021-03-08 15:25:00 [facility] POCT GLUCOSE (AUTOMATED) 2021-03-08 15:25:00 [facility] POCT GLUCOSE (AUTOMATED) 2021-03-08 13:39:00 [facility] POCT GLUCOSE (AUTOMATED) 2021-03-08 13:39:00 Hudson Wolfe [facility] MAGNESIUM 2021-03-08 12:00:00 Hunter Gage [facility] BASIC METABOLIC PANEL 2021-03-08 12:00:00 Hunter Gage [facility] (NA, K, CL, CO2, GLUCOSE, Medica l Branch BUN, CREATININE, CA) CBC WITH DIFF 2021-03-08 12:00:00 [facility] 2021-03-08 12:00:00 Too [facility] BASIC METABOLIC PANEL 2021-03-08 12:00:00 [facility] ([facility], K, CL, CO2, GLUCOSE, Medica l Branch BUN, CREATININE, CA) CBC WITH DIFF 2021-03-08 12:00:00 Too [facility] CBC WITH DIFF 2021-03-08 03:11:00 Becky [facility] CBC WITH DIFF 2021-03-08 03:11:00 Becky [facility] POCT GLUCOSE (AUTOMATED) 2021-03-08 02:27:00 Hudson Wolfe [facility] POCT GLUCOSE (AUTOMATED) 2021-03-08 02:27:00 Hudson Wolfe [facility] FERRITIN SERUM 2021-03-08 01:02:00 Becky [facility] VITAMIN B12, LEVEL 2021-03-08 01:02:00 Becky [facility] FOLATE 2021-03-08 01:02:00 Becky [facility] IRON PANEL 2021-03-08 01:02:00 Becky [facility] FERRITIN SERUM 2021-03-08 01:02:00 Becky [facility] VITAMIN B12, LEVEL 2021-03-08 01:02:00 Becky Renato [facility] FOLATE 2021-03-08 01:02:00 Becky [facility] IRON PANEL 2021-03-08 01:02:00 Becky [facility] POCT GLUCOSE (AUTOMATED) 2021-03-07 23:57:00 Hudson Wolfe [facility] POCT GLUCOSE (AUTOMATED) 2021-03-07 23:57:00 Hudson Wolfe [facility] POCT GLUCOSE (AUTOMATED) 2021-03-07 20:06:00 Hudson Wolfe [facility] POCT GLUCOSE (AUTOMATED) 2021-03-07 20:06:00 Hudson Wolfe [facility] CT ABDOMEN PELVIS WO 2021-03-07 15:18:42 Hudson Wolfe [facility] CONTRAST [facility] CT ABDOMEN PELVIS WO 2021-03-07 15:18:42 Hudson Wolfe [facility] CONTRAST [facility] LACTIC ACID WHOLE BLOOD 2021-03-07 14:56:00 Hudson Wolfe [facility] LACTIC ACID WHOLE BLOOD 2021-03-07 14:56:00 Hudson Wolfe [facility] LIPASE 2021-03-07 14:55:00 Hudson Wolfe [facility] TROPONIN I 2021-03-07 14:55:00 Hudson Wolfe [facility] COMP. METABOLIC PANEL 2021-03-07 14:55:00 Hudson Wolfe [facility] ([id number]) [facility] CBC WITH DIFF 2021-03-07 14:55:00 Hudson Wolfe [facility] PROTHROMBIN TIME / INR 2021-03-07 14:55:00 Hudson Wolfe [facility] ACTIVATED PARTIAL 2021-03-07 14:55:00 Hudson Wolfe [facility] COVID-19 (ID NOW RAPID 2021-03-07 14:55:00 Hudson Wolfe [facility] TESTING) Medical Branch LAB ONLY COVID 2021-03-07 14:55:00 Hudson Wolfe [facility] INTERPRETATION [facility] LIPASE 2021-03-07 14:55:00 Hudson Wolfe [facility] TROPONIN I 2021-03-07 14:55:00 Hudson Wolfe [facility] COMP. METABOLIC PANEL 2021-03-07 14:55:00 Hudson Wolfe [facility] ([id number]) [facility] CBC WITH DIFF 2021-03-07 14:55:00 Hudson Wolfe [facility] PROTHROMBIN TIME / INR 2021-03-07 14:55:00 Hudson Wolfe [facility] ACTIVATED PARTIAL 2021-03-07 14:55:00 Hudson Wolfe [facility] THRMPLAS ANU Medical Branch COVID-19 (ID NOW RAPID 2021-03-07 14:55:00 [facility] Medical Branch LAB ONLY COVID 2021-03-07 14:55:00 [place] [facility]fe [place] [facility] [place] INTER[facility] NOTICE OF PRIVACY 2021-03-07 14:12:45 Doctor Unassigned, [facility] PRACTICES [place] [facility] NOTICE OF PRIVACY 2021-03-07 14:12:45 Doctor Unassigned, [facility] Plan of Care Planned Activity Planned Date Details Comments Source Medication 2021-03-11 pantoprazole 40 mg EC [facility] 00:00:00 tablet [code = 503024] Medic al Branch Encounters Start End Encounter Admission Attending Care Care Encounter Source Date/Time Date/Time Type Type Clinicians Facility Department ID 2021-03-07 2021-03-10 Outpatient X [facility] [id number] Univers 08:28:00 14:20:00 ity of [facility] 2021-03-07 2021-03-10 Emergency Hudson Wolfe [id number] Univers 08:28:00 14:20:00 Christiane Evans [id number] 0 ity of [facility] [id number] Bernabe as [id number] [facility] 100 Branch 2021-03-09 2021-03-09 Surgery Misael Castro [facility] [id number] Univers 09:36:00 10:16:00 David ICAL [id number] it y of SCIENCES [id number] Bernabe as BLDG [id number] [facility] 020 Branch 2021-03-03 2021-03-03 Office [facility] [id number] Univers 14:00:00 14:44:31 Visit Shantel PALOMO [id number] ity [facility] [id number] [place] [phone] [place] dical [facility] 188 Branch BUILDING 2020-05-202020-05-20 Telephone YANA Samano [id number] 00:00:00 00:00:00 Teri RENEE [id number] [facility] [id number] Results Test Description Test Time Test Comments Results Result Comments Source SURGICAL PATHOLOGY EXAM 2021-03-10 19:32:47 Test Item Value Reference Range Interpretation Comme nts Case Report (test code = [id number]) Surgical Pathology ?Case: [id number] ? Authorizing Provider: ?Misael Castro MD ? ? ?Collected: ? 03/09/2021 1017 ?Ordering Location: ? ? GI Endoscopy OR Department Received: ?03/09/2021 1143 ?Pathologist: ? Simon Rabago MD PHD ?Specimens: ? A) - LARGE INTESTINE, TRANSVERSE COLON, 1 Transverse colon polypectomy cold snare x2 ? to eval for adenoma ? B) - LARGE INTESTINE, SIGMOID COLON, 2 Sigmoid colon polypectomy hot snare to eval ? for adenoma ? Final Diagnosis (test code = [id number]) dWMxIHtccnRmMVxlcGljOTYwMVxhbnNpXHNwbHRw H4RgnpmvXRyzCY0fVY6eqZgmqPKbfFKtUJYpJgLm r3ysm976vMUji5wsNOZYqzhyxRx1kIdnN22ca2G8 BauaE23zxRCvSED8JHCsFBRdlHXmBGOoONC9KXIv lYMzP8qtALVmSW7mxbteGWgtYTwaPPObxDU0JLOh vRAzF9JyGIDpAClcBBTtoeq4RdPpOb6amXXmcXps MUwhQRGjGYNaNYelEGXcDbQqxDMxWECnRFQWPA5V ZMPGWfLMA2DNCqHMYQPDP3xGCMUJYDQNXVCHMVsN VYYAK23XGDgwYtpqvWBgRUPiPVDzOWPYLGQDGMGW TWJJKE4TEICkIJNdXMYgzfxrNKVvCg0hY46BE59q UBOZX31IUCXoUMoCWQFHHdVNRTTJO6lOHGXAMU9X KWgqpJRgMEJhJQPvPMDVSULXNOWTDYONYL4RIGTw oCVdONEthiLOJUI0jIY3AGZbnDCqVMGSSXEbGKKi t2VtT3ToyYJpnMIpsVOdQP6sCY1nYETyECEop9Hq W2OdXGmfaEAgzixjojHhNZItFYR3XFSrXG7leBTu HDZxvd77KGO9SfNul9Q0FMSjAlWdNXRoXG0rkXsl ZCRdTZ9uSDOjD8idkE0wogl5ZyDiUUOoPtE9XIKu mdE6Yhu7RPLeQPhrp7pvu8ZuG8ZklVDxfVd6j3ji HKTkGtD3fSJrTEhnL0pwisKboHTnMNXtFKy7wDzm QyOzGIEdo5qbxsFnIuDqDVInIOWiFBAqiRrbgnf4 dT08VMVrnN5afOJlGVvcipHoXwI2CTffQZPxPgG3 BMDvuGAsNBSoR1ooJFQaCEveSGVkOUpuwAKaPZD4 zZqvx9A4nKSgxEIkpDhtNjZrWzLnEDEEl5JkUWe5 jQeqR5QjRODsOnY4aTFsFBLsVZizYIYhLKKnacJ9 fM74BVgludP8uWYol8All28kx326iY3gpVFrCDU6 MQIlZVUgfQZbDLKrMBX6SZLifLNjR0frHZBcME7w jsjyZQzmBEamHUFhaOS6LKFjkOLwR0UbSTDaOQux VQEhwje3MaGzUq9hvWXeiWowZVrdt0bsj5sqrOCx Fkm0PIIyOyUbGthzKTwxn9Gay0qfVKTwee4qKAM4 aJOvsObhd9G0pFLgFBOsaDQxfoYyKWIqPfZ0TCor AT5evn61GRGjNOP7gn1knGJwxXmsmbEdvQDeRMrg N9IdFLGmr519FASdB4TgDAKwv8T9cjJhMgMsBIQv vDE2loZ8XAUjNCi8bDPjcuW0tyUyqSWjN9rphN8c KNMyDM3zuavun7lkTNhcGQjoWCXdiYA9zbD5QLIb zJXhN1BfkM6kVBUhVScsLHMdzuf8BeQtJe6jhJOt eTcyMFxzYmtwYWdlXHBnbmNvbnRccGduZGVjXHBs KXhxAIDrRYytKIBsTVRjHvVzvFgutGikrZ5wHcDk AuZwDWzxOC2fUZQtF1pnfJUaOCQaQRAgM3isZsBg nB3yrGakHBldDpSdOnVwGGcrSBRfCHZzQNFuQLZx jmOajyAfvYzhdbG9hUQ9UTAaERfcEIXfGSZuaLHx mb5myPtePDSlSI9qFNEpfcWcNPbsqUisFEjqSJH8 YXRlbWVudHMgbWFkZSBieSByZXNpZGVudHMsIGZl eJrqs0Bui2CofJQ5nL7mr1dwm4AfGBKlmWG8JP68 vnO6cE7rKRTfLL9mKAMyGE9qtXBqaKAoACUkc10p dGhpcyByZXBvcnQuXHBsYWluXGYyXGZzMjhcbGFu AsIfHlQilFmlsKwaIumgXbGxJZQbCIszW3frRrQu KdFlUEnwAMO1tT== Clinical Information (test code = Trina Simpson is a 76 year old fema le [id number]) of Rectal bleeding [K62.5]Refusal of blood transfusions as patient is Mormon [Z53.1]1 Transverse colon polypectomy cold snare x2 to eval for adenoma 2 Sigmoid colon polypectomy hot snare to eval for adenoma Gross Description (test code = [id number] [facility] [id number]) ekbhCXjfOS2wLR0jcMwttLNowDYsQV1OMJMwTvLq GYEttXUhpdLgGgBgAOLvhSRknRE2XEQrTF2yvdaz PTgiFPmbYJVzwyS2NUUglLMbS1WkMCCrGQ3wmacf AXT8SJqiwJ9mehSFAqmsBr5tsIZmdNdbGuQbZsFl ACLiEFJsINAsnGexONXzCHv7xQ0HRaemFKX3GILQ ImlwSSXmKX4Mt2pqYGOpgUFmGXA9XSteeLLsSTQq WTCeKYi5AYNwLLbnhKUkZS7khRyjHpnojLhvw4Nm eUUuCLcyAOIgGUTbMGuuHOWnGX1HTtRjCAaUSCW5 OFd2QwX2BKz8UVPOZkVxPvMaYJx4XIE0AEIuVVc2 ZEv8WObYLlUgOKQ2OmV1RdUdVWX9SNQeXWyirVYs ZRfjZkAWyjixaQIpUJJuQMEkLZfnRsssGMzuP92l pZlmgL1fXhKqSGDUZzBNCBKCFRJVUoNJC0JPKwDn MYAOBN2AWyBGQ6PxC12LU11gBHZozeTYTatqyRMr blxlcGljTmVzdERvYzEgDQpcbHRycGFyXGxpbjBc cmluMCANClxsdHJjaFxmczIyIFNwZWNpbWVuIEEg [file] S1ZkE8IvnrV1KOg2 Disclaimer (test code = [id number]) u0zsbNNnFOAtr5ikAYReiDNpSlNeKeT cZnRuYmpc cZWwVUhcsvZxEGzot6IsT5YbLbFlQWmnrvFzDENt CsioxopwWJFeFSA1waShVMPkIHbmEPHgUEolXb5c rNWyeSddJxIsPXHte6lyljUYYHphChFzX417DMHl XUzkn0bne5JdGPYfcBYxg4U5CJKAxsruoOz9cJxz C01ho4W4JnjhA8tyLJChLNJtN6SeKL3tZDXyHnv7 MZT4ZAN9JWLgRONoR7AyRD6jOFRmmAJpSOp7u6nz aTnnIMUsFDJ4v7guQVajkkVqLU1zlu6wiLl7y4qs zlVuMTVwUBQgsPHEIDLxS2RgzNeeVg8wnSb0jNmx TadtHEX7Two4GT5vbk12jot9sZrmAIChafvxUcS0 CRznIABcifvmFYn7VWgaDDXywEY7TQWgoZLxL7Tt ZAWeXQ5zobs0DII1XYqsDQCqEgT9JQWyrQBfEODy gNxdUEyek837MWW4SxUbHA9vF1Xfx6A5sJ5teMQk HMBwsCVvGpVcNBZrco8ogYYcMUanp8RhPPN5uuI6 xPAdwDHuECVkNB27Oaqcf3HiUysws2CiL89vqSY5 TIyig0vdYO5zIuN8uuSeMAqac9kdhU8bZrW0BUdw NN9tIY6wKDNgdS5zgytyKOTbSiQgplsxONDsfFit dnGsHe4miDzeDTZ0DKitY6lbiI7oGvF3RTvrE1tw nD7jSHf5FMdcnMZ7RBLswI8uHQ1tyvnhp5lsEMhx VDvcGPRhxeD4wjX6LJRxfZXrW6NicD3hTDEnFX5c wmhvh8ngBAW0IPgxCARsCCX5ZuEmXMEmc7Baskb4 WzHym6KahQCnTUvjU92ch937ULOmlaGpA8mzmZEw lnkdaCJwjvrsOGbzcfC8DEHxggAqr9VfXQMmNZK4 LHjyGKjiwTTjYDGxeKeyh5zoA0AvuOKzKUReOHls XGYxXGZzMjBcbGFuZzEwMzNcaGljaFxmMVxkYmNo [file] L2yzXzNoaU3ymGtqBZccVuLyCePnYTyhGOT4dE== Embedded Images (test code = [id number]) [facility] GLUCOSE (AUTOMATED)2021-03-10 18:12:45 Test Item Value Reference Range Interpretation Comments POCT GLU (test code = [id number]) 210 mg/dL 70-110 H Lab Interpretation (test code = Abnormal 76499-0) [facility] GLUCOSE (AUTOMATED)2021-03-10 18:12:45 Test Item Value Reference Range Interpretation Comments POCT GLU (test code = 4551479876) 210 mg/dL 70-110 H Lab Interpretation (test code = Abnormal 21700-2) [facility] GLUCOSE (AUTOMATED)2021-03-10 15:08:46 Test Item Value Reference Range Interpretation Comments POCT GLU (test code = 5248281842) 89 mg/dL 70-110 Lab Interpretation (test code = Normal 68095-5) [facility] GLUCOSE (AUTOMATED)2021-03-10 15:08:46 Test Item Value Reference Range Interpretation Comments POCT GLU (test code = 2681714176) 89 mg/dL 70-110 Lab Interpretation (test code = Normal 99411-3) [facility]2022-01-20 12:46:49 Test Item Value Reference Range Interpretation Comments MAGNESIUM (test code = 8940896520) 2.2 mg/dL 1.7-2.4 Lab Interpretation (test code = Normal 07390-2) [facility]2022-01-20 12:46:49 Test Item Value Reference Range Interpretation Comments MAGNESIUM (test code = 2562399888) 2.2 mg/dL 1.7-2.4 Lab Interpretation (test code = Normal 87701-0) [facility] METABOLIC PANEL (NA, K, CL, CO2, GLUCOSE, BUN, CREATININE, CA)2021-03-10 12:46:48 Test Item Value Reference Range Interpretation Comments NA (test code = 138 mmol/L 135-145 5485782996) K (test code = 4.3 mmol/L 3.5-5.0 2057628498) CL (test code = 110 mmol/L 98-108 H 8930006885) CO2 TOTAL (test code = 24 mmol/L 23-31 9052318813) AGAP (test code = 2-16 1941667768) BUN (test code = 33 mg/dL 7-23 H 0699757668) GLUCOSE (test code = 76 mg/dL 70-110 9165920158) CREATININE (test code = 2.04 mg/dL 0.50-1.04 H 8297232192) CALCIUM (test code = 8.0 mg/dL 8.6-10.6 L 4652952665) eGFR (test code = mL/min/1.73m2 9618762614) SEN (test code = SEN) Association of Glomerular Filtration Rate (GFR) and Staging of Kidney Disease* + --+ --+ ------+| GFR (mL/min/1.73 m2) ?| With Kidney Damage ?| ?Without Kidney Damage+ --------+ --------+ +| ?>90 ?| ?Stage one ?| ? Normal ?+ ---+ ---+ -------+| ?60-89 ?| ?Stage two ?| ? Decreased GFR ? + --+ --+ ------+| ?30-59 ?| ?Stage three ?| ? Stage three ? + --+ --+ ------+| ?15-29 ?| ?Stage four ? | ? Stage four ?+ ---+ ---+ -------+| ?<15 (or dialysis) ? ?| ?Stage five ? | ? Stage five ?+ ---+ ---+ -------+ *Each stage assumes the associated GFR level has been in effect for at least three months. ?Stages 1 to 5, with or without kidney disease, indicate chronic kidney disease. Notes: Determination of stages one and two (with eGFR >59mL/min/1.73 m2) requires estimation of kidney damage for at least three months as defined by structural or functional abnormalities of the kidney, manifested by either:Pathological abnormalities or Markers of kidney damage (including abnormalities in the composition of the blood or urine or abnormalities in imaging tests). Lab Interpretation Abnormal (test code = 33457-4) [facility] METABOLIC PANEL (NA, K, CL, CO2, GLUCOSE, BUN, CREATININE, CA)2021-03-10 12:46:48 Test Item Value Reference Range Interpretation Comments NA (test code = 138 mmol/L 135-145 2536577044) K (test code = 4.3 mmol/L 3.5-5.0 7588242449) CL (test code = 110 mmol/L 98-108 H 4225513746) CO2 TOTAL (test code = 24 mmol/L 23-31 8821649690) AGAP (test code = 2-16 9431900622) BUN (test code = 33 mg/dL 7-23 H 3582399510) GLUCOSE (test code = 76 mg/dL 70-110 6252082737) CREATININE (test code = 2.04 mg/dL 0.50-1.04 H 0090388993) CALCIUM (test code = 8.0 mg/dL 8.6-10.6 L 7295782370) eGFR (test code = mL/min/1.73m2 2118558727) SEN (test code = ESN) Association of Glomerular Filtration Rate (GFR) and Staging of Kidney Disease* + --+ --+ ------+| GFR (mL/min/1.73 m2) ?| With Kidney Damage ?| ?Without Kidney Damage+ --------+ --------+ +| ?>90 ?| ?Stage one ?| ? Normal ?+ ---+ ---+ -------+| ?60-89 ?| ?Stage two ?| ? Decreased GFR ? + --+ --+ ------+| ?30-59 ?| ?Stage three ?| ? Stage three ? + --+ --+ ------+| ?15-29 ?| ?Stage four ? | ? Stage four ?+ ---+ ---+ -------+| ?<15 (or dialysis) ? ?| ?Stage five ? | ? Stage five ?+ ---+ ---+ -------+ *Each stage assumes the associated GFR level has been in effect for at least three months. ?Stages 1 to 5, with or without kidney disease, indicate chronic kidney disease. Notes: Determination of stages one and two (with eGFR >59mL/min/1.73 m2) requires estimation of kidney damage for at least three months as defined by structural or functional abnormalities of the kidney, manifested by either:Pathological abnormalities or Markers of kidney damage (including abnormalities in the composition of the blood or urine or abnormalities in imaging tests). Lab Interpretation Abnormal (test code = 07717-7) [facility] WITH SYOB0106-20-28 12:21:44 Test Item Value Reference Range Interpretation Comments WBC (test code = See_Comment [Automated 1490-2) message] The sy stem which generated this result transmitted reference range : 4.30 - 11.10 10*3/?L. The reference range was not used to interpret this result as normal/abnormal . RBC (test code = See_Comment L [Automated 789-8) message] The sy stem which generated this result transmitted reference range : 3.93 - 5.25 10*6/?L. The reference range was not used to interpret this result as normal/abnormal . HGB (test code = 9.1 g/dL 11.6-15.0 L 718-7) HCT (test code = 27.5 % 35.7-45.2 L 4544-3) MCV (test code = 92.6 fL 80.6-95.5 787-2) MCH (test code = 30.6 pg 25.9-32.8 785-6) MCHC (test code = 33.1 g/dL 31.6-35.1 786-4) RDW-SD (test code = 43.4 fL 39.0-49.9 00489-1) RDW-CV (test code = 13.0 % 12.0-15.5 788-0) PLT (test code = See_Comment [Automated 777-3) message] The sy stem which generated this result transmitted reference range : 166 - 358 10*3/ ?L. The reference r beltran was not used to interpret this result as normal/abnormal . MPV (test code = 11.3 fL 9.5-12.9 17811-2) NRBC/100 WBC (test See_Comment [Automat ed code = 8935152253) message] The system which generated this result transmitted reference range : 0.0 - 10.0 /100 WBCs. The refer ence range was not u sed to interpret th is result as normal/abnormal . NRBC x10^3 (test code <0.01 See_Comment [Auto mated = 9675309924) message] The s ystem which generated this result transmitted reference range : 10*3/?L. The reference range was not used to interpret this result as normal/abnormal . GRAN MAT (NEUT) % 63.6 % (test code = 770-8) IMM GRAN % (test code 0.30 % = 7782090344) LYMPH % (test code = 27.6 % 736-9) MONO % (test code = 6.4 % 5905-5) EOS % (test code = 2.0 % 713-8) BASO % (test code = 0.1 % 706-2) GRAN MAT x10^3(ANC) 4.84 10*3/uL 1.88-7.09 (test code = 5515942129) IMM GRAN x10^3 (test <0.03 0.00-0.06 code = 1520730981) LYMPH x10^3 (test code 2.10 10*3/uL 1.32-3.29 = 731-0) MONO x10^3 (test code 0.49 10*3/uL 0.33-0.92 = 742-7) EOS x10^3 (test code = 0.15 10*3/uL 0.03-0.39 711-2) BASO x10^3 (test code <0.03 0.01-0.07 = 704-7) Lab Interpretation Abnormal (test code = 81692-8) [facility] WITH [id number] 12:21:44 Test Item Value Reference Range Interpretation Comments WBC (test code = See_Comment [Automated 6690-2) message] The sy stem which generated this result transmitted reference range : 4.30 - 11.10 10*3/?L. The reference range was not used to interpret this result as normal/abnormal . RBC (test code = See_Comment L [Automated 789-8) message] The sy stem which generated this result transmitted reference range : 3.93 - 5.25 10*6/?L. The reference range was not used to interpret this result as normal/abnormal . HGB (test code = 9.1 g/dL 11.6-15.0 L 718-7) HCT (test code = 27.5 % 35.7-45.2 L 4544-3) MCV (test code = 92.6 fL 80.6-95.5 787-2) MCH (test code = 30.6 pg 25.9-32.8 785-6) MCHC (test code = 33.1 g/dL 31.6-35.1 786-4) RDW-SD (test code = 43.4 fL 39.0-49.9 80714-8) RDW-CV (test code = 13.0 % 12.0-15.5 788-0) PLT (test code = See_Comment [Automated 777-3) message] The sy stem which generated this result transmitted reference range : 166 - 358 10*3/ ?L. The reference r beltran was not used to interpret this result as normal/abnormal . MPV (test code = 11.3 fL 9.5-12.9 55753-3) NRBC/100 WBC (test See_Comment [Automat ed code = 5329842617) message] The system which generated this result transmitted reference range : 0.0 - 10.0 /100 WBCs. The refer ence range was not u sed to interpret th is result as normal/abnormal . NRBC x10^3 (test code <0.01 See_Comment [Auto mated = 9259620522) message] The s ystem which generated this result transmitted reference range : 10*3/?L. The reference range was not used to interpret this result as normal/abnormal . GRAN MAT (NEUT) % 63.6 % (test code = 770-8) IMM GRAN % (test code 0.30 % = 9679123846) LYMPH % (test code = 27.6 % 736-9) MONO % (test code = 6.4 % 5905-5) EOS % (test code = 2.0 % 713-8) BASO % (test code = 0.1 % 706-2) GRAN MAT x10^3(ANC) 4.84 10*3/uL 1.88-7.09 (test code = 6895414924) IMM GRAN x10^3 (test <0.03 0.00-0.06 code = 2250059706) LYMPH x10^3 (test code 2.10 10*3/uL 1.32-3.29 = 731-0) MONO x10^3 (test code 0.49 10*3/uL 0.33-0.92 = 742-7) EOS x10^3 (test code = 0.15 10*3/uL 0.03-0.39 711-2) BASO x10^3 (test code <0.03 0.01-0.07 = 704-7) Lab Interpretation Abnormal (test code = 30806-6) [facility] GLUCOSE (AUTOMATED)2021-03-10 02:35:14 Test Item Value Reference Range Interpretation Comments POCT GLU (test code = 9569998077) 121 mg/dL 70-110 H Lab Interpretation (test code = Abnormal 63706-8) [facility] GLUCOSE (AUTOMATED)2021-03-10 02:35:14 Test Item Value Reference Range Interpretation Comments POCT GLU (test code = 0918289890) 121 mg/dL 70-110 H Lab Interpretation (test code = Abnormal 18046-4) [facility] GLUCOSE (AUTOMATED)2021-03-09 23:54:05 Test Item Value Reference Range Interpretation Comments POCT GLU (test code = 4229514487) 185 mg/dL 70-110 H Lab Interpretation (test code = Abnormal 76105-2) [facility] GLUCOSE (AUTOMATED)2021-03-09 23:54:05 Test Item Value Reference Range Interpretation Comments POCT GLU (test code = 1668304305) 185 mg/dL 70-110 H Lab Interpretation (test code = Abnormal 83033-5) [facility] METABOLIC PANEL (NA, K, CL, CO2, GLUCOSE, BUN, CREATININE, CA)2021-03-09 23:13:09 Test Item Value Reference Range Interpretation Comments NA (test code = 139 mmol/L 135-145 9731507254) K (test code = 3.2 mmol/L 3.5-5.0 L Slight 1780826620) hemolysis CL (test code = 114 mmol/L 98-108 H 0184097996) CO2 TOTAL (test code 16 mmol/L 23-31 L = 8178830218) AGAP (test code = 2-16 5288569696) BUN (test code = 28 mg/dL 7-23 H Slight 2105206696) hemolysis GLUCOSE (test code = 191 mg/dL 70-110 H 5727306654) CREATININE (test code 1.55 mg/dL 0.50-1.04 H = 5920090414) CALCIUM (test code = 6.3 mg/dL 8.6-10.6 L 7914202967) eGFR (test code = mL/min/1.73m2 6631588068) SEN (test code = SEN) Association of Glomerular Filtration Rate (GFR) and Staging of Kidney Disease* + -----+ --------+ +| GFR (mL/min/1.73 m2) ?| With Kidney Damage ?| ?Without Kidney Damage+ +------- +---- --+| ?>90 ?| ?Stage one ?| ? Normal ?+ ------+ ---------+--------- +| ?60-89 ?| ?Stage two ?| ? Decreased GFR ? + -----+ --------+ +| ?30-59 ?| ?Stage three ?| ? Stage three ? + -----+ --------+ +| ?15-29 ?| ?Stage four ? | ? Stage four ?+ ------+ ---------+--------- +| ?<15 (or dialysis) ? ?| ?Stage five ? | ? Stage five ?+ ------+ ---------+--------- + *Each stage assumes the associated GFR level has been in effect for at least three months. ?Stages 1 to 5, with or without kidney disease, indicate chronic kidney disease. Notes: Determination of stages one and two (with eGFR >59mL/min/1.73 m2) requires estimation of kidney damage for at least three months as defined by structural or functional abnormalities of the kidney, manifested by either:Pathological abnormalities or Markers of kidney damage (including abnormalities in the composition of the blood or urine or abnormalities in imaging tests). Lab Interpretation Abnormal (test code = 83559-7) [facility] METABOLIC PANEL (NA, K, CL, CO2, GLUCOSE, BUN, CREATININE, CA)2021-03-09 23:13:09 Test Item Value Reference Range Interpretation Comments NA (test code = 139 mmol/L 135-145 0371591889) K (test code = 3.2 mmol/L 3.5-5.0 L Slight 0816165206) hemolysis CL (test code = 114 mmol/L 98-108 H 8660363607) CO2 TOTAL (test code 16 mmol/L 23-31 L = 2978151377) AGAP (test code = 2-16 6669490333) BUN (test code = 28 mg/dL 7-23 H Slight 2298736534) hemolysis GLUCOSE (test code = 191 mg/dL 70-110 H 1521199570) CREATININE (test code 1.55 mg/dL 0.50-1.04 H = 1509423945) CALCIUM (test code = 6.3 mg/dL 8.6-10.6 L 4767305949) eGFR (test code = mL/min/1.73m2 7505862855) SEN (test code = SEN) Association of Glomerular Filtration Rate (GFR) and Staging of Kidney Disease* + -----+ --------+ +| GFR (mL/min/1.73 m2) ?| With Kidney Damage ?| ?Without Kidney Damage+ +------- +---- --+| ?>90 ?| ?Stage one ?| ? Normal ?+ ------+ ---------+--------- +| ?60-89 ?| ?Stage two ?| ? Decreased GFR ? + -----+ --------+ +| ?30-59 ?| ?Stage three ?| ? Stage three ? + -----+ --------+ +| ?15-29 ?| ?Stage four ? | ? Stage four ?+ ------+ ---------+--------- +| ?<15 (or dialysis) ? ?| ?Stage five ? | ? Stage five ?+ ------+ ---------+--------- + *Each stage assumes the associated GFR level has been in effect for at least three months. ?Stages 1 to 5, with or without kidney disease, indicate chronic kidney disease. Notes: Determination of stages one and two (with eGFR >59mL/min/1.73 m2) requires estimation of kidney damage for at least three months as defined by structural or functional abnormalities of the kidney, manifested by either:Pathological abnormalities or Markers of kidney damage (including abnormalities in the composition of the blood or urine or abnormalities in imaging tests). Lab Interpretation Abnormal (test code = 14708-0) [facility] WITHOUT [id number] 23:10:52 Test Item Value Reference Range Interpretation Comments WBC (test code = 6690-2) See_Comment [A utomated message] The system [employer] generated this result transmit luis miguel reference range : 4.30 - 11.10 10*3/?L. The reference range was not used to interpret this result as normal/abnormal . RBC (test code = 789-8) See_Comment L [Au tomated message] The system [employer] generated this result transmit luis miguel reference range : 3.93 - 5.25 10* 6/?L. The reference r beltran was not used to interpret this result as normal/abnormal . HGB (test code = 718-7) 9.6 g/dL 11.6-15.0 L HCT (test code = 4544-3) 28.8 % 35.7-45.2 L MCH (test code = 785-6) 31.1 pg 25.9-32.8 MCV (test code = 787-2) 93.2 fL 80.6-95.5 MCHC (test code = 786-4) 33.3 g/dL 31.6-35.1 PLT (test code = 777-3) See_Comment [Au tomated message] The system [employer] generated this result transmit luis miguel reference range : 166 - 358 10*3/?L. The reference range was not used to interpret this result as normal/abnormal . MPV (test code = 11.8 fL 9.5-12.9 35638-4) RDW-CV (test code = 12.9 % 12.0-15.5 788-0) RDW-SD (test code = 43.7 fL 39.0-49.9 01593-2) NRBC x10^3 (test code = <0.01 See_Comment [Au tomated message] 2871097033) The system [employer] generated this result transmit luis miguel reference range : 10*3/?L. The reference range was not used to interpret this result as normal/abnormal . NRBC/100 WBC (test code See_Comment [Au tomated message] = 4398155283) The system [facility] generated this result transmit luis miguel reference range : 0.0 - 10.0 /100 WBC s. The reference r beltran was not used to interpret this result as normal/abnormal . IPF % (test code = 4512211874) Lab Interpretation (test Abnormal code = 64808-8) [facility] WITHOUT [id number] 23:10:52 Test Item Value Reference Range Interpretation Comments WBC (test code = 6690-2) See_Comment [A utomated message] The system [employer] generated this result transmit luis miguel reference range : 4.30 - 11.10 10*3/?L. The reference range was not used to interpret this result as normal/abnormal . RBC (test code = 789-8) See_Comment L [Au tomated message] The system [employer] generated this result transmit luis miguel reference range : 3.93 - 5.25 10* 6/?L. The reference r beltran was not used to interpret this result as normal/abnormal . HGB (test code = 718-7) 9.6 g/dL 11.6-15.0 L HCT (test code = 4544-3) 28.8 % 35.7-45.2 L MCH (test code = 785-6) 31.1 pg 25.9-32.8 MCV (test code = 787-2) 93.2 fL 80.6-95.5 MCHC (test code = 786-4) 33.3 g/dL 31.6-35.1 PLT (test code = 777-3) See_Comment [Au tomated message] The system [employer] generated this result transmit luis miguel reference range : 166 - 358 10*3/?L. The reference range was not used to interpret this result as normal/abnormal . MPV (test code = 11.8 fL 9.5-12.9 41948-0) RDW-CV (test code = 12.9 % 12.0-15.5 788-0) RDW-SD (test code = 43.7 fL 39.0-49.9 89405-4) NRBC x10^3 (test code = <0.01 See_Comment [Au tomated message] 6024190909) The system [employer] generated this result transmit luis miguel reference range : 10*3/?L. The reference range was not used to interpret this result as normal/abnormal . NRBC/100 WBC (test code See_Comment [Au tomated message] = 4530425861) The system [employer] generated this result transmit luis miguel reference range : 0.0 - 10.0 /100 WBC s. The reference r beltran was not used to interpret this result as normal/abnormal . IPF % (test code = 2816342222) Lab Interpretation (test Abnormal code = 31063-0) [facility] GLUCOSE (AUTOMATED)2021-03-09 20:23:38 Test Item Value Reference Range Interpretation Comments POCT GLU (test code = 6093373924) 177 mg/dL 70-110 H Lab Interpretation (test code = Abnormal 04713-1) [facility] GLUCOSE (AUTOMATED)2021-03-09 20:23:38 Test Item Value Reference Range Interpretation Comments POCT GLU (test code = 5295056049) 177 mg/dL 70-110 H Lab Interpretation (test code = Abnormal 42972-9) [facility] GLUCOSE (AUTOMATED)2021-03-09 13:40:08 Test Item Value Reference Range Interpretation Comments POCT GLU (test code = 5721352528) 161 mg/dL 70-110 H Lab Interpretation (test code = Abnormal 33152-8) [facility] GLUCOSE (AUTOMATED)2021-03-09 13:40:08 Test Item Value Reference Range Interpretation Comments POCT GLU (test code = 8599256150) 161 mg/dL 70-110 H Lab Interpretation (test code = Abnormal 15451-4) [facility] METABOLIC PANEL (NA, K, CL, CO2, GLUCOSE, BUN, CREATININE, CA)2021-03-09 11:11:21 Test Item Value Reference Range Interpretation Comments NA (test code = 138 mmol/L 135-145 4070623058) K (test code = 3.9 mmol/L 3.5-5.0 6798665855) CL (test code = 110 mmol/L 98-108 H 4234386473) CO2 TOTAL (test code = 20 mmol/L 23-31 L 5364729766) AGAP (test code = 2-16 9639900690) BUN (test code = 41 mg/dL 7-23 H 4638664316) GLUCOSE (test code = 147 mg/dL 70-110 H 7837216527) CREATININE (test code = 2.05 mg/dL 0.50-1.04 H 1358464326) CALCIUM (test code = 7.8 mg/dL 8.6-10.6 L 4270823870) eGFR (test code = mL/min/1.73m2 1102454372) SEN (test code = SEN) Association of Glomerular Filtration Rate (GFR) and Staging of Kidney Disease* + --+ --+ ------+| GFR (mL/min/1.73 m2) ?| With Kidney Damage ?| ?Without Kidney Damage+ --------+ --------+ +| ?>90 ?| ?Stage one ?| ? Normal ?+ ---+ ---+ -------+| ?60-89 ?| ?Stage two ?| ? Decreased GFR ? + --+ --+ ------+| ?30-59 ?| ?Stage three ?| ? Stage three ? + --+ --+ ------+| ?15-29 ?| ?Stage four ? | ? Stage four ?+ ---+ ---+ -------+| ?<15 (or dialysis) ? ?| ?Stage five ? | ? Stage five ?+ ---+ ---+ -------+ *Each stage assumes the associated GFR level has been in effect for at least three months. ?Stages 1 to 5, with or without kidney disease, indicate chronic kidney disease. Notes: Determination of stages one and two (with eGFR >59mL/min/1.73 m2) requires estimation of kidney damage for at least three months as defined by structural or functional abnormalities of the kidney, manifested by either:Pathological abnormalities or Markers of kidney damage (including abnormalities in the composition of the blood or urine or abnormalities in imaging tests). Lab Interpretation Abnormal (test code = 96108-6) [facility] Test Item Value Reference Range Interpretation Comments MAGNESIUM (test code = 8813371978) 2.2 mg/dL 1.7-2.4 Lab Interpretation (test code = Normal 44743-1) [facility] METABOLIC PANEL (NA, K, CL, CO2, GLUCOSE, BUN, CREATININE, CA)2021-03-09 11:11:21 Test Item Value Reference Range Interpretation Comments NA (test code = 138 mmol/L 135-145 1856952728) K (test code = 3.9 mmol/L 3.5-5.0 9646588217) CL (test code = 110 mmol/L 98-108 H 1680714660) CO2 TOTAL (test code = 20 mmol/L 23-31 L 8616556527) AGAP (test code = 2-16 8702831502) BUN (test code = 41 mg/dL 7-23 H 0672496243) GLUCOSE (test code = 147 mg/dL 70-110 H 7973233560) CREATININE (test code = 2.05 mg/dL 0.50-1.04 H 0155813314) CALCIUM (test code = 7.8 mg/dL 8.6-10.6 L 1116376130) eGFR (test code = mL/min/1.73m2 5355194725) SEN (test code = SEN) Association of Glomerular Filtration Rate (GFR) and Staging of Kidney Disease* + --+ --+ ------+| GFR (mL/min/1.73 m2) ?| With Kidney Damage ?| ?Without Kidney Damage+ --------+ --------+ +| ?>90 ?| ?Stage one ?| ? Normal ?+ ---+ ---+ -------+| ?60-89 ?| ?Stage two ?| ? Decreased GFR ? + --+ --+ ------+| ?30-59 ?| ?Stage three ?| ? Stage three ? + --+ --+ ------+| ?15-29 ?| ?Stage four ? | ? Stage four ?+ ---+ ---+ -------+| ?<15 (or dialysis) ? ?| ?Stage five ? | ? Stage five ?+ ---+ ---+ -------+ *Each stage assumes the associated GFR level has been in effect for at least three months. ?Stages 1 to 5, with or without kidney disease, indicate chronic kidney disease. Notes: Determination of stages one and two (with eGFR >59mL/min/1.73 m2) requires estimation of kidney damage for at least three months as defined by structural or functional abnormalities of the kidney, manifested by either:Pathological abnormalities or Markers of kidney damage (including abnormalities in the composition of the blood or urine or abnormalities in imaging tests). Lab Interpretation Abnormal (test code = 95906-0) [facility] Test Item Value Reference Range Interpretation Comments MAGNESIUM (test code = 1139513895) 2.2 mg/dL 1.7-2.4 Lab Interpretation (test code = Normal 90209-8) [facility] WITH [id number] 10:46:19 Test Item Value Reference Range Interpretation Comments WBC (test code = See_Comment [Automated 6690-2) message] The sy stem which generated this result transmitted reference range : 4.30 - 11.10 10*3/?L. The reference range was not used to interpret this result as normal/abnormal . RBC (test code = See_Comment L [Automated 789-8) message] The sy stem which generated this result transmitted reference range : 3.93 - 5.25 10*6/?L. The reference range was not used to interpret this result as normal/abnormal . HGB (test code = 9.1 g/dL 11.6-15.0 L 718-7) HCT (test code = 28.3 % 35.7-45.2 L 4544-3) MCV (test code = 93.4 fL 80.6-95.5 787-2) MCH (test code = 30.0 pg 25.9-32.8 785-6) MCHC (test code = 32.2 g/dL 31.6-35.1 786-4) RDW-SD (test code = 44.4 fL 39.0-49.9 50125-1) RDW-CV (test code = 13.1 % 12.0-15.5 788-0) PLT (test code = See_Comment [Automated 777-3) message] The sy stem which generated this result transmitted reference range : 166 - 358 10*3/ ?L. The reference r beltran was not used to interpret this result as normal/abnormal . MPV (test code = 11.1 fL 9.5-12.9 66820-7) NRBC/100 WBC (test See_Comment [Automat ed code = 1229849190) message] The system which generated this result transmitted reference range : 0.0 - 10.0 /100 WBCs. The refer ence range was not u sed to interpret th is result as normal/abnormal . NRBC x10^3 (test code <0.01 See_Comment [Auto mated = 8934507391) message] The s ystem which generated this result transmitted reference range : 10*3/?L. The reference range was not used to interpret this result as normal/abnormal . GRAN MAT (NEUT) % 67.4 % (test code = 770-8) IMM GRAN % (test code 0.20 % = 7384656633) LYMPH % (test code = 24.3 % 736-9) MONO % (test code = 6.1 % 5905-5) EOS % (test code = 1.8 % 713-8) BASO % (test code = 0.2 % 706-2) GRAN MAT x10^3(ANC) 6.11 10*3/uL 1.88-7.09 (test code = 3320319009) IMM GRAN x10^3 (test <0.03 0.00-0.06 code = 4306786532) LYMPH x10^3 (test code 2.20 10*3/uL 1.32-3.29 = 731-0) MONO x10^3 (test code 0.55 10*3/uL 0.33-0.92 = 742-7) EOS x10^3 (test code = 0.16 10*3/uL 0.03-0.39 711-2) BASO x10^3 (test code <0.03 0.01-0.07 = 704-7) Lab Interpretation Abnormal (test code = 15425-8) [facility] WITH [id number] 10:46:19 Test Item Value Reference Range Interpretation Comments WBC (test code = See_Comment [Automated 6690-2) message] The sy stem which generated this result transmitted reference range : 4.30 - 11.10 10*3/?L. The reference range was not used to interpret this result as normal/abnormal . RBC (test code = See_Comment L [Automated 789-8) message] The sy stem which generated this result transmitted reference range : 3.93 - 5.25 10*6/?L. The reference range was not used to interpret this result as normal/abnormal . HGB (test code = 9.1 g/dL 11.6-15.0 L 718-7) HCT (test code = 28.3 % 35.7-45.2 L 4544-3) MCV (test code = 93.4 fL 80.6-95.5 787-2) MCH (test code = 30.0 pg 25.9-32.8 785-6) MCHC (test code = 32.2 g/dL 31.6-35.1 786-4) RDW-SD (test code = 44.4 fL 39.0-49.9 08063-2) RDW-CV (test code = 13.1 % 12.0-15.5 788-0) PLT (test code = See_Comment [Automated 777-3) message] The sy stem which generated this result transmitted reference range : 166 - 358 10*3/ ?L. The reference r beltran was not used to interpret this result as normal/abnormal . MPV (test code = 11.1 fL 9.5-12.9 72467-0) NRBC/100 WBC (test See_Comment [Automat ed code = 8489941893) message] The system which generated this result transmitted reference range : 0.0 - 10.0 /100 WBCs. The refer ence range was not u sed to interpret th is result as normal/abnormal . NRBC x10^3 (test code <0.01 See_Comment [Auto mated = 7000723825) message] The s ystem which generated this result transmitted reference range : 10*3/?L. The reference range was not used to interpret this result as normal/abnormal . GRAN MAT (NEUT) % 67.4 % (test code = 770-8) IMM GRAN % (test code 0.20 % = 6576465477) LYMPH % (test code = 24.3 % 736-9) MONO % (test code = 6.1 % 5905-5) EOS % (test code = 1.8 % 713-8) BASO % (test code = 0.2 % 706-2) GRAN MAT x10^3(ANC) 6.11 10*3/uL 1.88-7.09 (test code = 2622756500) IMM GRAN x10^3 (test <0.03 0.00-0.06 code = 3023618751) LYMPH x10^3 (test code 2.20 10*3/uL 1.32-3.29 = 731-0) MONO x10^3 (test code 0.55 10*3/uL 0.33-0.92 = 742-7) EOS x10^3 (test code = 0.16 10*3/uL 0.03-0.39 711-2) BASO x10^3 (test code <0.03 0.01-0.07 = 704-7) Lab Interpretation Abnormal (test code = 09687-6) [facility] GLUCOSE (AUTOMATED)2021-03-09 03:20:41 Test Item Value Reference Range Interpretation Comments POCT GLU (test code = 6916411298) 159 mg/dL 70-110 H Lab Interpretation (test code = Abnormal 45138-7) [facility] GLUCOSE (AUTOMATED)2021-03-09 03:20:41 Test Item Value Reference Range Interpretation Comments POCT GLU (test code = 0393534217) 159 mg/dL 70-110 H Lab Interpretation (test code = Abnormal 26862-6) [facility] WITHOUT [id number] 02:04:55 Test Item Value Reference Range Interpretation Comments WBC (test code = 6690-2) See_Comment [A utomated message] The system [employer] generated this result transmit luis miguel reference range : 4.30 - 11.10 10*3/?L. The reference range was not used to interpret this result as normal/abnormal . RBC (test code = 789-8) See_Comment L [Au tomated message] The system [employer] generated this result transmit luis miguel reference range : 3.93 - 5.25 10* 6/?L. The reference r beltran was not used to interpret this result as normal/abnormal . HGB (test code = 718-7) 10.0 g/dL 11.6-15.0 L HCT (test code = 4544-3) 30.5 % 35.7-45.2 L MCH (test code = 785-6) 30.8 pg 25.9-32.8 MCV (test code = 787-2) 93.8 fL 80.6-95.5 MCHC (test code = 786-4) 32.8 g/dL 31.6-35.1 PLT (test code = 777-3) See_Comment [Au tomated message] The system [employer] generated this result transmit luis miguel reference range : 166 - 358 10*3/?L. The reference range was not used to interpret this result as normal/abnormal . MPV (test code = 11.3 fL 9.5-12.9 54047-9) RDW-CV (test code = 13.0 % 12.0-15.5 788-0) RDW-SD (test code = 44.7 fL 39.0-49.9 93869-0) NRBC x10^3 (test code = <0.01 See_Comment [Au tomated message] 9183884103) The system [employer] generated this result transmit luis miguel reference range : 10*3/?L. The reference range was not used to interpret this result as normal/abnormal . NRBC/100 WBC (test code See_Comment [Au tomated message] = 7879774463) The system [facility] generated this result transmit luis miguel reference range : 0.0 - 10.0 /100 WBC s. The reference r beltran was not used to interpret this result as normal/abnormal . IPF % (test code = 1456998568) Lab Interpretation (test Abnormal code = 40902-8) [facility] WITHOUT [id number] 02:04:55 Test Item Value Reference Range Interpretation Comments WBC (test code = 6690-2) See_Comment [A utomated message] The system [employer] generated this result transmit luis miguel reference range : 4.30 - 11.10 10*3/?L. The reference range was not used to interpret this result as normal/abnormal . RBC (test code = 789-8) See_Comment L [Au tomated message] The system [employer] generated this result transmit luis miguel reference range : 3.93 - 5.25 10* 6/?L. The reference r beltran was not used to interpret this result as normal/abnormal . HGB (test code = 718-7) 10.0 g/dL 11.6-15.0 L HCT (test code = 4544-3) 30.5 % 35.7-45.2 L MCH (test code = 785-6) 30.8 pg 25.9-32.8 MCV (test code = 787-2) 93.8 fL 80.6-95.5 MCHC (test code = 786-4) 32.8 g/dL 31.6-35.1 PLT (test code = 777-3) See_Comment [Au tomated message] The system [employer] generated this result transmit luis miguel reference range : 166 - 358 10*3/?L. The reference range was not used to interpret this result as normal/abnormal . MPV (test code = 11.3 fL 9.5-12.9 37726-4) RDW-CV (test code = 13.0 % 12.0-15.5 788-0) RDW-SD (test code = 44.7 fL 39.0-49.9 28780-2) NRBC x10^3 (test code = <0.01 See_Comment [Au tomated message] 7966066306) The system [employer] generated this result transmit luis miguel reference range : 10*3/?L. The reference range was not used to interpret this result as normal/abnormal . NRBC/100 WBC (test code See_Comment [Au tomated message] = 3043266208) The system [facility] generated this result transmit luis miguel reference range : 0.0 - 10.0 /100 WBC s. The reference r beltran was not used to interpret this result as normal/abnormal . IPF % (test code = 5056713619) Lab Interpretation (test Abnormal code = 11681-4) [facility] GLUCOSE (AUTOMATED)2021-03-08 23:12:44 Test Item Value Reference Range Interpretation Comments POCT GLU (test code = 7198981337) 129 mg/dL 70-110 H Lab Interpretation (test code = Abnormal 33156-3) [facility] GLUCOSE (AUTOMATED)2021-03-08 23:12:44 Test Item Value Reference Range Interpretation Comments POCT GLU (test code = 2939309150) 129 mg/dL 70-110 H Lab Interpretation (test code = Abnormal 47457-9) [facility] GLUCOSE (AUTOMATED)2021-03-08 17:42:56 Test Item Value Reference Range Interpretation Comments POCT GLU (test code = 6924338038) 126 mg/dL 70-110 H Lab Interpretation (test code = Abnormal 71773-8) [facility] GLUCOSE (AUTOMATED)2021-03-08 17:42:56 Test Item Value Reference Range Interpretation Comments POCT GLU (test code = 6815352056) 126 mg/dL 70-110 H Lab Interpretation (test code = Abnormal 25012-1) [facility] GLUCOSE (AUTOMATED)2021-03-08 15:32:42 Test Item Value Reference Range Interpretation Comments POCT GLU (test code = 2393735324) 149 mg/dL 70-110 H Lab Interpretation (test code = Abnormal 15822-4) [facility] GLUCOSE (AUTOMATED)2021-03-08 15:32:42 Test Item Value Reference Range Interpretation Comments POCT GLU (test code = 1514127854) 149 mg/dL 70-110 H Lab Interpretation (test code = Abnormal 79495-2) [facility] GLUCOSE (AUTOMATED)2021-03-08 13:41:07 Test Item Value Reference Range Interpretation Comments POCT GLU (test code = 9974820318) 105 mg/dL 70-110 Lab Interpretation (test code = Normal 51062-5) [facility] GLUCOSE (AUTOMATED)2021-03-08 13:41:07 Test Item Value Reference Range Interpretation Comments POCT GLU (test code = 9456930413) 105 mg/dL 70-110 Lab Interpretation (test code = Normal 12350-5) [facility] METABOLIC PANEL (NA, K, CL, CO2, GLUCOSE, BUN, CREATININE, CA)2021-03-08 13:03:34 Test Item Value Reference Range Interpretation Comments NA (test code = 139 mmol/L 135-145 5503124415) K (test code = 4.7 mmol/L 3.5-5.0 7859305071) CL (test code = 114 mmol/L 98-108 H 0099940309) CO2 TOTAL (test code = 22 mmol/L 23-31 L 3305062425) AGAP (test code = 2-16 4599160390) BUN (test code = 43 mg/dL 7-23 H 8348729003) GLUCOSE (test code = 104 mg/dL 70-110 0120213508) CREATININE (test code = 1.79 mg/dL 0.50-1.04 H 7241923764) CALCIUM (test code = 8.3 mg/dL 8.6-10.6 L 6160571012) eGFR (test code = mL/min/1.73m2 3228938214) SEN (test code = SEN) Association of Glomerular Filtration Rate (GFR) and Staging of Kidney Disease* + --+ --+ ------+| GFR (mL/min/1.73 m2) ?| With Kidney Damage ?| ?Without Kidney Damage+ --------+ --------+ +| ?>90 ?| ?Stage one ?| ? Normal ?+ ---+ ---+ -------+| ?60-89 ?| ?Stage two ?| ? Decreased GFR ? + --+ --+ ------+| ?30-59 ?| ?Stage three ?| ? Stage three ? + --+ --+ ------+| ?15-29 ?| ?Stage four ? | ? Stage four ?+ ---+ ---+ -------+| ?<15 (or dialysis) ? ?| ?Stage five ? | ? Stage five ?+ ---+ ---+ -------+ *Each stage assumes the associated GFR level has been in effect for at least three months. ?Stages 1 to 5, with or without kidney disease, indicate chronic kidney disease. Notes: Determination of stages one and two (with eGFR >59mL/min/1.73 m2) requires estimation of kidney damage for at least three months as defined by structural or functional abnormalities of the kidney, manifested by either:Pathological abnormalities or Markers of kidney damage (including abnormalities in the composition of the blood or urine or abnormalities in imaging tests). Lab Interpretation Abnormal (test code = 34278-3) [facility] Test Item Value Reference Range Interpretation Comments MAGNESIUM (test code = 3060963264) 2.3 mg/dL 1.7-2.4 Lab Interpretation (test code = Normal 38695-2) [facility] METABOLIC PANEL (NA, K, CL, CO2, GLUCOSE, BUN, CREATININE, CA)2021-03-08 13:03:34 Test Item Value Reference Range Interpretation Comments NA (test code = 139 mmol/L 135-145 5263808288) K (test code = 4.7 mmol/L 3.5-5.0 7999507512) CL (test code = 114 mmol/L 98-108 H 4310402143) CO2 TOTAL (test code = 22 mmol/L 23-31 L 8793160137) AGAP (test code = 2-16 0568494616) BUN (test code = 43 mg/dL 7-23 H 3923803407) GLUCOSE (test code = 104 mg/dL 70-110 3431254166) CREATININE (test code = 1.79 mg/dL 0.50-1.04 H 5788715896) CALCIUM (test code = 8.3 mg/dL 8.6-10.6 L 1930014221) eGFR (test code = mL/min/1.73m2 4024697734) SEN (test code = SEN) Association of Glomerular Filtration Rate (GFR) and Staging of Kidney Disease* + --+ --+ ------+| GFR (mL/min/1.73 m2) ?| With Kidney Damage ?| ?Without Kidney Damage+ --------+ --------+ +| ?>90 ?| ?Stage one ?| ? Normal ?+ ---+ ---+ -------+| ?60-89 ?| ?Stage two ?| ? Decreased GFR ? + --+ --+ ------+| ?30-59 ?| ?Stage three ?| ? Stage three ? + --+ --+ ------+| ?15-29 ?| ?Stage four ? | ? Stage four ?+ ---+ ---+ -------+| ?<15 (or dialysis) ? ?| ?Stage five ? | ? Stage five ?+ ---+ ---+ -------+ *Each stage assumes the associated GFR level has been in effect for at least three months. ?Stages 1 to 5, with or without kidney disease, indicate chronic kidney disease. Notes: Determination of stages one and two (with eGFR >59mL/min/1.73 m2) requires estimation of kidney damage for at least three months as defined by structural or functional abnormalities of the kidney, manifested by either:Pathological abnormalities or Markers of kidney damage (including abnormalities in the composition of the blood or urine or abnormalities in imaging tests). Lab Interpretation Abnormal (test code = 36628-1) [facility] Test Item Value Reference Range Interpretation Comments MAGNESIUM (test code = 8999727081) 2.3 mg/dL 1.7-2.4 Lab Interpretation (test code = Normal 60924-4) [facility] [id number] 12:45:13 Test Item Value Reference Range Interpretation Comments WBC (test code = See_Comment [Automated 6690-2) message] The sy stem which generated this result transmitted reference range : 4.30 - 11.10 10*3/?L. The reference range was not used to interpret this result as normal/abnormal . RBC (test code = See_Comment L [Automated 789-8) message] The sy stem which generated this result transmitted reference range : 3.93 - 5.25 10*6/?L. The reference range was not used to interpret this result as normal/abnormal . HGB (test code = 10.1 g/dL 11.6-15.0 L 718-7) HCT (test code = 31.4 % 35.7-45.2 L 4544-3) MCV (test code = 93.5 fL 80.6-95.5 787-2) MCH (test code = 30.1 pg 25.9-32.8 785-6) MCHC (test code = 32.2 g/dL 31.6-35.1 786-4) RDW-SD (test code = 44.6 fL 39.0-49.9 72384-0) RDW-CV (test code = 12.9 % 12.0-15.5 788-0) PLT (test code = See_Comment [Automated 777-3) message] The sy stem which generated this result transmitted reference range : 166 - 358 10*3/ ?L. The reference r beltran was not used to interpret this result as normal/abnormal . MPV (test code = 11.4 fL 9.5-12.9 65465-5) NRBC/100 WBC (test See_Comment [Automat ed code = 3684782929) message] The system which generated this result transmitted reference range : 0.0 - 10.0 /100 WBCs. The refer ence range was not u sed to interpret th is result as normal/abnormal . NRBC x10^3 (test code <0.01 See_Comment [Auto mated = 2860299771) message] The s ystem which generated this result transmitted reference range : 10*3/?L. The reference range was not used to interpret this result as normal/abnormal . GRAN MAT (NEUT) % 67.7 % (test code = 770-8) IMM GRAN % (test code 0.40 % = 8439711497) LYMPH % (test code = 23.5 % 736-9) MONO % (test code = 6.6 % 5905-5) EOS % (test code = 1.6 % 713-8) BASO % (test code = 0.2 % 706-2) GRAN MAT x10^3(ANC) 5.56 10*3/uL 1.88-7.09 (test code = 9099033614) IMM GRAN x10^3 (test 0.03 10*3/uL 0.00-0.06 code = 4593884928) LYMPH x10^3 (test code 1.93 10*3/uL 1.32-3.29 = 731-0) MONO x10^3 (test code 0.54 10*3/uL 0.33-0.92 = 742-7) EOS x10^3 (test code = 0.13 10*3/uL 0.03-0.39 711-2) BASO x10^3 (test code <0.03 0.01-0.07 = 704-7) Lab Interpretation Abnormal (test code = 13661-2) [facility] WITH [id number] 12:45:13 Test Item Value Reference Range Interpretation Comments WBC (test code = See_Comment [Automated 6690-2) message] The sy stem which generated this result transmitted reference range : 4.30 - 11.10 10*3/?L. The reference range was not used to interpret this result as normal/abnormal . RBC (test code = See_Comment L [Automated 789-8) message] The sy stem which generated this result transmitted reference range : 3.93 - 5.25 10*6/?L. The reference range was not used to interpret this result as normal/abnormal . HGB (test code = 10.1 g/dL 11.6-15.0 L 718-7) HCT (test code = 31.4 % 35.7-45.2 L 4544-3) MCV (test code = 93.5 fL 80.6-95.5 787-2) MCH (test code = 30.1 pg 25.9-32.8 785-6) MCHC (test code = 32.2 g/dL 31.6-35.1 786-4) RDW-SD (test code = 44.6 fL 39.0-49.9 01468-8) RDW-CV (test code = 12.9 % 12.0-15.5 788-0) PLT (test code = See_Comment [Automated 777-3) message] The sy stem which generated this result transmitted reference range : 166 - 358 10*3/ ?L. The reference r beltran was not used to interpret this result as normal/abnormal . MPV (test code = 11.4 fL 9.5-12.9 08312-4) NRBC/100 WBC (test See_Comment [Automat ed code = 0747875342) message] The system which generated this result transmitted reference range : 0.0 - 10.0 /100 WBCs. The refer ence range was not u sed to interpret th is result as normal/abnormal . NRBC x10^3 (test code <0.01 See_Comment [Auto mated = 8481024004) message] The s ystem which generated this result transmitted reference range : 10*3/?L. The reference range was not used to interpret this result as normal/abnormal . GRAN MAT (NEUT) % 67.7 % (test code = 770-8) IMM GRAN % (test code 0.40 % = 2818832220) LYMPH % (test code = 23.5 % 736-9) MONO % (test code = 6.6 % 5905-5) EOS % (test code = 1.6 % 713-8) BASO % (test code = 0.2 % 706-2) GRAN MAT x10^3(ANC) 5.56 10*3/uL 1.88-7.09 (test code = 2389033988) IMM GRAN x10^3 (test 0.03 10*3/uL 0.00-0.06 code = 3248302089) LYMPH x10^3 (test code 1.93 10*3/uL 1.32-3.29 = 731-0) MONO x10^3 (test code 0.54 10*3/uL 0.33-0.92 = 742-7) EOS x10^3 (test code = 0.13 10*3/uL 0.03-0.39 711-2) BASO x10^3 (test code <0.03 0.01-0.07 = 704-7) Lab Interpretation Abnormal (test code = 16256-6) [facility] Test Item Value Reference Range Interpretation Comments FOLATE SER (test code = 1154039172) 6.6 ng/mL 3.0-20.0 Lab Interpretation (test code = Normal 27270-8) [facility] 03:20[facility]13 Test Item Value Reference Range Interpretation Comments FOLATE SER (test code = 6810520979) 6.6 ng/mL 3.0-20.0 Lab Interpretation (test code = Normal 95512-2) [facility] [id number] 03:19:13 Test Item Value Reference Range Interpretation Comments WBC (test code = See_Comment [Automated 8562-2) message] The sy stem which generated this result transmitted reference range : 4.30 - 11.10 10*3/?L. The reference range was not used to interpret this result as normal/abnormal . RBC (test code = See_Comment L [Automated 449-8) message] The sy stem which generated this result transmitted reference range : 3.93 - 5.25 10*6/?L. The reference range was not used to interpret this result as normal/abnormal . HGB (test code = 10.5 g/dL 11.6-15.0 L 718-7) HCT (test code = 31.1 % 35.7-45.2 L 4544-3) MCV (test code = 90.9 fL 80.6-95.5 787-2) MCH (test code = 30.7 pg 25.9-32.8 785-6) MCHC (test code = 33.8 g/dL 31.6-35.1 786-4) RDW-SD (test code = 43.1 fL 39.0-49.9 92344-4) RDW-CV (test code = 13.1 % 12.0-15.5 788-0) PLT (test code = See_Comment [Automated 777-3) message] The sy stem which generated this result transmitted reference range : 166 - 358 10*3/ ?L. The reference r beltran was not used to interpret this result as normal/abnormal . MPV (test code = 11.2 fL 9.5-12.9 00103-8) NRBC/100 WBC (test See_Comment [Automat ed code = 8835730348) message] The system which generated this result transmitted reference range : 0.0 - 10.0 /100 WBCs. The refer ence range was not u sed to interpret th is result as normal/abnormal . NRBC x10^3 (test code <0.01 See_Comment [Auto mated = 1255985651) message] The s ystem which generated this result transmitted reference range : 10*3/?L. The reference range was not used to interpret this result as normal/abnormal . GRAN MAT (NEUT) % 61.1 % (test code = 770-8) IMM GRAN % (test code 0.40 % = 6979128413) LYMPH % (test code = 30.3 % 736-9) MONO % (test code = 6.0 % 5905-5) EOS % (test code = 2.0 % 713-8) BASO % (test code = 0.2 % 706-2) GRAN MAT x10^3(ANC) 5.24 10*3/uL 1.88-7.09 (test code = 5703485845) IMM GRAN x10^3 (test 0.03 10*3/uL 0.00-0.06 code = 5423045870) LYMPH x10^3 (test code 2.60 10*3/uL 1.32-3.29 = 731-0) MONO x10^3 (test code 0.51 10*3/uL 0.33-0.92 = 742-7) EOS x10^3 (test code = 0.17 10*3/uL 0.03-0.39 711-2) BASO x10^3 (test code <0.03 0.01-0.07 = 704-7) Lab Interpretation Abnormal (test code = 53009-2) [facility] WITH [id number] 03:19:13 Test Item Value Reference Range Interpretation Comments WBC (test code = See_Comment [Automated 7090-2) message] The sy stem which generated this result transmitted reference range : 4.30 - 11.10 10*3/?L. The reference range was not used to interpret this result as normal/abnormal . RBC (test code = See_Comment L [Automated 789-8) message] The sy stem which generated this result transmitted reference range : 3.93 - 5.25 10*6/?L. The reference range was not used to interpret this result as normal/abnormal . HGB (test code = 10.5 g/dL 11.6-15.0 L 718-7) HCT (test code = 31.1 % 35.7-45.2 L 4544-3) MCV (test code = 90.9 fL 80.6-95.5 787-2) MCH (test code = 30.7 pg 25.9-32.8 785-6) MCHC (test code = 33.8 g/dL 31.6-35.1 786-4) RDW-SD (test code = 43.1 fL 39.0-49.9 92205-8) RDW-CV (test code = 13.1 % 12.0-15.5 788-0) PLT (test code = See_Comment [Automated 777-3) message] The sy stem which generated this result transmitted reference range : 166 - 358 10*3/ ?L. The reference r beltran was not used to interpret this result as normal/abnormal . MPV (test code = 11.2 fL 9.5-12.9 40114-1) NRBC/100 WBC (test See_Comment [Automat ed code = 5400533467) message] The system which generated this result transmitted reference range : 0.0 - 10.0 /100 WBCs. The refer ence range was not u sed to interpret th is result as normal/abnormal . NRBC x10^3 (test code <0.01 See_Comment [Auto mated = 2179480351) message] The s ystem which generated this result transmitted reference range : 10*3/?L. The reference range was not used to interpret this result as normal/abnormal . GRAN MAT (NEUT) % 61.1 % (test code = 770-8) IMM GRAN % (test code 0.40 % = 2291045973) LYMPH % (test code = 30.3 % 736-9) MONO % (test code = 6.0 % 5905-5) EOS % (test code = 2.0 % 713-8) BASO % (test code = 0.2 % 706-2) GRAN MAT x10^3(ANC) 5.24 10*3/uL 1.88-7.09 (test code = 1347687096) IMM GRAN x10^3 (test 0.03 10*3/uL 0.00-0.06 code = 5967803449) LYMPH x10^3 (test code 2.60 10*3/uL 1.32-3.29 = 731-0) MONO x10^3 (test code 0.51 10*3/uL 0.33-0.92 = 742-7) EOS x10^3 (test code = 0.17 10*3/uL 0.03-0.39 711-2) BASO x10^3 (test code <0.03 0.01-0.07 = 704-7) Lab Interpretation Abnormal (test code = 36504-2) [facility] [id number] 03:05:30 Test Item Value Reference Range Interpretation Comments VIT B12 (test code = 640 pg/mL 240-930 8111834054) SEN (test code = SEN) Biotin has been reported to cause a positive bias, interpret results relative to patient's use of biotin. Lab Interpretation (test Normal code = 77219-5) [facility] [id number] 03:05:30 Test Item Value Reference Range Interpretation Comments VIT B12 (test code = 640 pg/mL 240-930 0369581420) SEN (test code = SEN) Biotin has been reported to cause a positive bias, interpret results relative to patient's use of biotin. Lab Interpretation (test Normal code = 53310-5) [facility] [id number] 02:49:51 Test Item Value Reference Range Interpretation Comments FERRITIN (test code = 51.4 ng/mL 11.0-264.0 8981601810) SEN (test code = SEN) Biotin has been reported to cause a negative bias, interpret results relative to patient's use of biotin. Lab Interpretation (test Normal code = 61983-3) [facility] [id number] 02:49:51 Test Item Value Reference Range Interpretation Comments FERRITIN (test code = 51.4 ng/mL 11.0-264.0 2180487736) SEN (test code = SEN) Biotin has been reported to cause a negative bias, interpret results relative to patient's use of biotin. Lab Interpretation (test Normal code = 19084-3) [facility] GLUCOSE (AUTOMATED)2021-03-08 02:28:47 Test Item Value Reference Range Interpretation Comments POCT GLU (test code = 2518074273) 250 mg/dL 70-110 H Lab Interpretation (test code = Abnormal 95576-2) [facility] GLUCOSE (AUTOMATED)2021-03-08 02:28:47 Test Item Value Reference Range Interpretation Comments POCT GLU (test code = 4716189006) 250 mg/dL 70-110 H Lab Interpretation (test code = Abnormal 23707-1) [facility] [id number] 02:16:46 Test Item Value Reference Range Interpretation Comments IRON (test code = 9589924084) 80 ug/dL 50-160 TIBC (test code = 4976691539) 214 ug/dL 250-410 L % FE SAT (test code = 0778285132) 37 % 20-50 Lab Interpretation (test code = Abnormal 35581-7) [facility] [id number] 02:16:46 Test Item Value Reference Range Interpretation Comments IRON (test code = 3768137593) 80 ug/dL 50-160 TIBC (test code = 2562608432) 214 ug/dL 250-410 L % FE SAT (test code = 5427218941) 37 % 20-50 Lab Interpretation (test code = Abnormal 01632-2) [facility] GLUCOSE (AUTOMATED)2021-03-07 23:58:54 Test Item Value Reference Range Interpretation Comments POCT GLU (test code = 4647424044) 227 mg/dL 70-110 H Lab Interpretation (test code = Abnormal 74826-7) [facility] GLUCOSE (AUTOMATED)2021-03-07 23:58:54 Test Item Value Reference Range Interpretation Comments POCT GLU (test code = 9550784917) 227 mg/dL 70-110 H Lab Interpretation (test code = Abnormal 01413-0) [facility] GLUCOSE (AUTOMATED)2021-03-07 20:07:23 Test Item Value Reference Range Interpretation Comments POCT GLU (test code = 1137351947) 204 mg/dL 70-110 H Lab Interpretation (test code = Abnormal 17589-7) [facility] GLUCOSE (AUTOMATED)2021-03-07 20:07:23 Test Item Value Reference Range Interpretation Comments POCT GLU (test code = 2106527402) 204 mg/dL 70-110 H Lab Interpretation (test code = Abnormal 61799-0) [id number] Test Item Value Reference Interpretation Comments Range TROPONIN I (test 0.019 ng/mL See_Comment [Automated code = 7867990378) message] The system which generated this result transmitted reference range : <=0.034. The reference range was not used to interpret this result as normal/abnormal . SEN (test code = Reference (Normal) SEN) Range (defined by the 99th percentile reference limit): <= 0.034 ng/mL Note: Cardiac troponin begins to rise 3-4 hours after the onset of ischemia. Repeat in 4-6 hours if the sample was drawn within 3-4 hours of the onset of the symptom and found normal. Diagnosis of myocardial injury is made with acute changes in cTn concentrations with at least one serial sample above the 99th percentile upper reference limit (URL), taken together with the patient's clinical presentation. Biotin has been reported to cause a negative bias, interpret results relative to patient's use of biotin. Lab Interpretation Normal (test code = 68207-9) [facility] [id number] 15:43:30 Test Item Value Reference Interpretation Comments Range TROPONIN I (test 0.019 ng/mL See_Comment [Automated code = 2067944797) message] The system which generated this result transmitted reference range : <=0.034. The reference range was not used to interpret this result as normal/abnormal . SEN (test code = Reference (Normal) SEN) Range (defined by the 99th percentile reference limit): <= 0.034 ng/mL Note: Cardiac troponin begins to rise 3-4 hours after the onset of ischemia. Repeat in 4-6 hours if the sample was drawn within 3-4 hours of the onset of the symptom and found normal. Diagnosis of myocardial injury is made with acute changes in cTn concentrations with at least one serial sample above the 99th percentile upper reference limit (URL), taken together with the patient's clinical presentation. Biotin has been reported to cause a negative bias, interpret results relative to patient's use of biotin. Lab Interpretation Normal (test code = 12280-7) [facility] [id number] 15:27:07 Test Item Value Reference Range Interpretation Comments APTT Patient (test See_Comment [Automat ed code = 3173-2) message] The system which generated this result transmitted reference range : 23 - 38 Seconds . The reference range was not used to interpr et this result as normal/abnormal . SEN (test code = SEN) The [facility] patient population mean normal value for aPTT is 30 seconds. Lab Interpretation Normal (test code = 97186-4) [facility] [id number] 15:27:07 Test Item Value Reference Range Interpretation Comments APTT Patient (test See_Comment [Automat ed code = 3173-2) message] The system which generated this result transmitted reference range : 23 - 38 Seconds . The reference range was not used to interpr et this result as normal/abnormal . SEN (test code = SEN) The [facility] patient population mean normal value for aPTT is 30 seconds. Lab Interpretation Normal (test code = 25854-7) [facility]. METABOLIC PANEL (12327)2021-03-07 15:26:27 Test Item Value Reference Range Interpretation Comments NA (test code = 137 mmol/L 135-145 5151626210) K (test code = 4.8 mmol/L 3.5-5.0 6834556497) CL (test code = 107 mmol/L 98-108 4976785753) CO2 TOTAL (test code = 24 mmol/L 23-31 6175541415) AGAP (test code = 2-16 1243321136) BUN (test code = 44 mg/dL 7-23 H 4205996963) GLUCOSE (test code = 255 mg/dL 70-110 H 1181690962) CREATININE (test code = 1.78 mg/dL 0.50-1.04 H 4880631153) TOTAL BILI (test code = 0.3 mg/dL 0.1-1.7 3960125534) CALCIUM (test code = 8.5 mg/dL 8.6-10.6 L 2448939134) T PROTEIN (test code = 7.0 g/dL 6.3-8.2 6373874531) ALBUMIN (test code = 3.7 g/dL 3.5-5.0 7463840411) ALK PHOS (test code = 145 U/L 34-122 H 2204483271) ALTv (test code = 26 U/L 5-35 1742-6) AST(SGOT) (test code = 29 U/L 13-40 7663131809) eGFR (test code = mL/min/1.73m2 9023394538) SEN (test code = SEN) Association of Glomerular Filtration Rate (GFR) and Staging of Kidney Disease* + --+ --+ ------+| GFR (mL/min/1.73 m2) ?| With Kidney Damage ?| ?Without Kidney Damage+ --------+ --------+ +| ?>90 ?| ?Stage one ?| ? Normal ?+ ---+ ---+ -------+| ?60-89 ?| ?Stage two ?| ? Decreased GFR ? + --+ --+ ------+| ?30-59 ?| ?Stage three ?| ? Stage three ? + --+ --+ ------+| ?15-29 ?| ?Stage four ? | ? Stage four ?+ ---+ ---+ -------+| ?<15 (or dialysis) ? ?| ?Stage five ? | ? Stage five ?+ ---+ ---+ -------+ *Each stage assumes the associated GFR level has been in effect for at least three months. ?Stages 1 to 5, with or without kidney disease, indicate chronic kidney disease. Notes: Determination of stages one and two (with eGFR >59mL/min/1.73 m2) requires estimation of kidney damage for at least three months as defined by structural or functional abnormalities of the kidney, manifested by either:Pathological abnormalities or Markers of kidney damage (including abnormalities in the composition of the blood or urine or abnormalities in imaging tests). Lab Interpretation Abnormal (test code = 14805-9) [facility]. METABOLIC PANEL (54441)2021-03-07 15:26:27 Test Item Value Reference Range Interpretation Comments NA (test code = 137 mmol/L 135-145 9836687112) K (test code = 4.8 mmol/L 3.5-5.0 4184159044) CL (test code = 107 mmol/L 98-108 1570175253) CO2 TOTAL (test code = 24 mmol/L 23-31 1284801834) AGAP (test code = 2-16 4457975938) BUN (test code = 44 mg/dL 7-23 H 0376419442) GLUCOSE (test code = 255 mg/dL 70-110 H 5239885864) CREATININE (test code = 1.78 mg/dL 0.50-1.04 H 8499216345) TOTAL BILI (test code = 0.3 mg/dL 0.1-1.5 6176992171) CALCIUM (test code = 8.5 mg/dL 8.6-10.6 L 9324885383) T PROTEIN (test code = 7.0 g/dL 6.3-8.2 3727839754) ALBUMIN (test code = 3.7 g/dL 3.5-5.0 5454381865) ALK PHOS (test code = 145 U/L 34-122 H 9056192770) ALTv (test code = 26 U/L 5-35 1742-6) AST(SGOT) (test code = 29 U/L 13-40 6903555013) eGFR (test code = mL/min/1.73m2 1186823735) SEN (test code = SEN) Association of Glomerular Filtration Rate (GFR) and Staging of Kidney Disease* + --+ --+ ------+| GFR (mL/min/1.73 m2) ?| With Kidney Damage ?| ?Without Kidney Damage+ --------+ --------+ +| ?>90 ?| ?Stage one ?| ? Normal ?+ ---+ ---+ -------+| ?60-89 ?| ?Stage two ?| ? Decreased GFR ? + --+ --+ ------+| ?30-59 ?| ?Stage three ?| ? Stage three ? + --+ --+ ------+| ?15-29 ?| ?Stage four ? | ? Stage four ?+ ---+ ---+ -------+| ?<15 (or dialysis) ? ?| ?Stage five ? | ? Stage five ?+ ---+ ---+ -------+ *Each stage assumes the associated GFR level has been in effect for at least three months. ?Stages 1 to 5, with or without kidney disease, indicate chronic kidney disease. Notes: Determination of stages one and two (with eGFR >59mL/min/1.73 m2) requires estimation of kidney damage for at least three months as defined by structural or functional abnormalities of the kidney, manifested by either:Pathological abnormalities or Markers of kidney damage (including abnormalities in the composition of the blood or urine or abnormalities in imaging tests). Lab Interpretation Abnormal (test code = 75534-5) [facility]47 Test Item Value Reference Range Interpretation Comments LIPASE (test code = 2373255981) 100 U/L 0-220 Lab Interpretation (test code = Normal 69600-3) [facility] 15:25:47 Test Item Value Reference Range Interpretation Comments LIPASE (test code = 9804725393) 100 U/L 0-220 Lab Interpretation (test code = Normal 53374-0) [facility] / [id number] 15:25:06 Test Item Value Reference Range Interpretation Comments PROTIME PATIENT (test See_Comment [Auto mated message] code = 5964-2) The system ich generated this result transmitted ref erence range: 12.0 - 1 4.7 Seconds. The re ference range was not u sed to interpret this result as normal/abnor mal. INR (test code = 6301-6) Nor mal INR <1.1; Warfarin Therap eutic range 2.0 to 3. 0 or 2.5 to 3.5, dep ending upon the indica tions. Lab Interpretation (test Normal code = 05402-8) [facility] / [id number] 15:25:06 Test Item Value Reference Range Interpretation Comments PROTIME PATIENT (test See_Comment [Auto mated message] code = 5964-2) The system ich generated this result transmitted ref erence range: 12.0 - 1 4.7 Seconds. The re ference range was not u sed to interpret this result as normal/abnor mal. INR (test code = 6301-6) Nor mal INR <1.1; Warfarin Therap eutic range 2.0 to 3. 0 or 2.5 to 3.5, dep ending upon the indica tions. Lab Interpretation (test Normal code = 40354-3) [facility] [id number] 15:10:27 Test Item Value Reference Range Interpretation Comments WBC (test code = See_Comment [Automated 5990-2) message] The sy stem which generated this result transmitted reference range : 4.30 - 11.10 10*3/?L. The reference range was not used to interpret this result as normal/abnormal . RBC (test code = See_Comment L [Automated 849-8) message] The sy stem which generated this result transmitted reference range : 3.93 - 5.25 10*6/?L. The reference range was not used to interpret this result as normal/abnormal . HGB (test code = 11.9 g/dL 11.6-15.0 718-7) HCT (test code = 37.0 % 35.7-45.2 4544-3) MCV (test code = 95.1 fL 80.6-95.5 787-2) MCH (test code = 30.6 pg 25.9-32.8 785-6) MCHC (test code = 32.2 g/dL 31.6-35.1 786-4) RDW-SD (test code = 44.5 fL 39.0-49.9 04714-4) RDW-CV (test code = 12.9 % 12.0-15.5 788-0) PLT (test code = See_Comment [Automated 777-3) message] The sy stem which generated this result transmitted reference range : 166 - 358 10*3/ ?L. The reference r beltran was not used to interpret this result as normal/abnormal . MPV (test code = 11.2 fL 9.5-12.9 28763-5) NRBC/100 WBC (test See_Comment [Automat ed code = 7044662627) message] The system which generated this result transmitted reference range : 0.0 - 10.0 /100 WBCs. The refer ence range was not u sed to interpret th is result as normal/abnormal . NRBC x10^3 (test code <0.01 See_Comment [Auto mated = 9714501234) message] The s ystem which generated this result transmitted reference range : 10*3/?L. The reference range was not used to interpret this result as normal/abnormal . GRAN MAT (NEUT) % 72.5 % (test code = 770-8) IMM GRAN % (test code 0.40 % = 6321209570) LYMPH % (test code = 19.5 % 736-9) MONO % (test code = 5.2 % 5905-5) EOS % (test code = 2.0 % 713-8) BASO % (test code = 0.4 % 706-2) GRAN MAT x10^3(ANC) 6.60 10*3/uL 1.88-7.09 (test code = 8386233915) IMM GRAN x10^3 (test 0.04 10*3/uL 0.00-0.06 code = 0355435540) LYMPH x10^3 (test code 1.78 10*3/uL 1.32-3.29 = 731-0) MONO x10^3 (test code 0.47 10*3/uL 0.33-0.92 = 742-7) EOS x10^3 (test code = 0.18 10*3/uL 0.03-0.39 711-2) BASO x10^3 (test code 0.04 10*3/uL 0.01-0.07 = 704-7) Lab Interpretation Abnormal (test code = 98694-0) [facility] WITH [id number] 15:10:27 Test Item Value Reference Range Interpretation Comments WBC (test code = See_Comment [Automated 6690-2) message] The sy stem which generated this result transmitted reference range : 4.30 - 11.10 10*3/?L. The reference range was not used to interpret this result as normal/abnormal . RBC (test code = See_Comment L [Automated 789-8) message] The sy stem which generated this result transmitted reference range : 3.93 - 5.25 10*6/?L. The reference range was not used to interpret this result as normal/abnormal . HGB (test code = 11.9 g/dL 11.6-15.0 718-7) HCT (test code = 37.0 % 35.7-45.2 4544-3) MCV (test code = 95.1 fL 80.6-95.5 787-2) MCH (test code = 30.6 pg 25.9-32.8 785-6) MCHC (test code = 32.2 g/dL 31.6-35.1 786-4) RDW-SD (test code = 44.5 fL 39.0-49.9 19614-8) RDW-CV (test code = 12.9 % 12.0-15.5 788-0) PLT (test code = See_Comment [Automated 777-3) message] The sy stem which generated this result transmitted reference range : 166 - 358 10*3/ ?L. The reference r beltran was not used to interpret this result as normal/abnormal . MPV (test code = 11.2 fL 9.5-12.9 95371-7) NRBC/100 WBC (test See_Comment [Automat ed code = 5802728403) message] The system which generated this result transmitted reference range : 0.0 - 10.0 /100 WBCs. The refer ence range was not u sed to interpret th is result as normal/abnormal . NRBC x10^3 (test code <0.01 See_Comment [Auto mated = 3759607230) message] The s ystem which generated this result transmitted reference range : 10*3/?L. The reference range was not used to interpret this result as normal/abnormal . GRAN MAT (NEUT) % 72.5 % (test code = 770-8) IMM GRAN % (test code 0.40 % = 9473822730) LYMPH % (test code = 19.5 % 736-9) MONO % (test code = 5.2 % 5905-5) EOS % (test code = 2.0 % 713-8) BASO % (test code = 0.4 % 706-2) GRAN MAT x10^3(ANC) 6.60 10*3/uL 1.88-7.09 (test code = 4574002824) IMM GRAN x10^3 (test 0.04 10*3/uL 0.00-0.06 code = 5380616875) LYMPH x10^3 (test code 1.78 10*3/uL 1.32-3.29 = 731-0) MONO x10^3 (test code 0.47 10*3/uL 0.33-0.92 = 742-7) EOS x10^3 (test code = 0.18 10*3/uL 0.03-0.39 711-2) BASO x10^3 (test code 0.04 10*3/uL 0.01-0.07 = 704-7) Lab Interpretation Abnormal (test code = 21362-5) [facility]
--- NOTE | 2021-03-10 22:02 | RAD REPORT ---
EXAM DESCRIPTION: RAD - Chest Single View - 03/10/2021 9:35 pm CLINICAL HISTORY: defibrilator firing Chest pain. COMPARISON: Chest Single View dated 05/31/2020; Chest Single View dated 11/08/2019; Chest Single View dated 07/22/2019; Chest Single View dated 07/18/2019 FINDINGS: Portable technique limits examination quality. Mild interstitial pulmonary edema. The heart is mildly enlarged in size. Multi lead pacer/defibrillat or device is present. IMPRESSION: Mild CHF.
[2021-03-10 22:05] LABS: Absolute Lymphocytes (CBC) 1.8 K/uL (0.7-4.9); Hematocrit 23.6 % (36.0-45.0); Lymphocytes % 20.4 % (15.3-44.8); MPV 10.1 fL (7.6-11.3); Protime INR 0.96; RBC Red Blood Cell Count 2.57 M/uL (3.86-4.86)
[2021-03-10 22:21] LABS: ALT/SGPT 35 U/L (12-78); AST/SGOT 33 U/L (15-37); Albumin 2.9 g/dL (3.4-5.0); Alkaline Phosphatase 142 U/L (45-117); BUN Blood Urea Nitrogen 32 mg/dL (7-18); Bicarbonate 23 mmol/L (21-32); Bilirubin Direct < 0.1 mg/dL (0-0.2); Bilirubin Total 0.2 mg/dL (0.2-1.0); Glucose Level 237 mg/dL (74-106); Magnesium 2.2 mg/dL (1.8-2.4); NT PRO-BNP 2937 pg/mL (<450); Potassium 4.4 mmol/L (3.5-5.1); Sodium Level 139 mmol/L (136-145)
[2021-03-10 22:25] LABS: Urine Blood Trace-lysed (Negative); Urine Glucose Negative (Negative); Urine Protein 3+ (Negative); Urine Specific Gravity 1.025 (1.005-1.030)
[2021-03-10 22:56] LABS: Urine Bacteria LOADED /HPF (<20); Urine Mucus 1+ /HPF (NONE SEEN); Urine RBC <5 /HPF (NONE SEEN)
--- NOTE | 2021-03-10 23:24 | P.HP ---
Certification for Inpatient Patient admitted to: Inpatient With expected LOS: >2 Midnights Patient will require the following post-hospital care: None Practitioner: I am a practitioner with admitting privileges, knowledge of patient current condition, hospital course, and medical plan of care. Services: Services provided to patient in accordance with Admission requirements found in Title 42 Section 412.3 of the Code of Federal Regulations Patient History Date of Service: 03/10/21 Reason for admission: Pacemaker firing History of Present Illness: 76-year-old female with history of systolic congestive heart failure, insulin-dependent type 2 diabetes, A. fib, on chronic anticoagulation, hypertension, seizure disorder, pacemaker placement presents to the emergency department with complaints of her pacemaker firing 4 times today. she was discharged from [facility] today after being hospitalized for 4 days with bright red blood per rectum. she received a colonoscopy there and once the bleeding ended she was discharged. She states her hemoglobin was 9 at [facility] it is 7.8 today. 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 Patient had been holding her Eliquis for the past 3 days but did take a dose this morning. patient denies any bright red blood per rectum, melena, or coffee-ground emesis at this time. Work-up in the ER showed labs significant for creatinine 2.09 glucose 237 troponin high-sensitivity 250 BNP 2937 hemoglobin 7.8. Chest x-ray revealed mild CHF. Patient will be admitted for further evaluation and medical management. Allergies No Known Allergies Allergy (Verified 07/19/19 02:02) Home Medications: Atorvastatin Calcium 40 mg PO BEDTIME 08/27/15 PHENYTOIN ER Cap [Dilantin ER Cap*] 200 mg PO BEDTIME 08/27/15 Rivaroxaban [Xarelto*] 15 mg PO DAILY 08/27/15 Furosemide [Lasix*] 40 mg PO SEECOM 04/07/16 Digoxin [Lanoxin*] 0.125 mg PO DAILY 07/16/19 Insulin -Regular Human [Novolin -R*] 0 unit SQ SEECOM 07/16/19 Insulin NPH Human Isophane [Novolin N] 25 unit SQ DAILY 07/16/19 Metoprolol Succinate 25 mg PO BID 07/16/19 Phenytoin Sodium Extended [Dilantin] 100 mg PO DAILY 07/16/19 Sacubitril/Valsartan [Entresto 24 mg-26 mg Tablet] 0.5 tab PO BID 07/16/19 - Past Medical/Surgical History Diabetic: Yes -: seizures -: afib -: iddm -: hypertension -: hyperlipidemia -: chf -: bladder infection -: cad -: neuropathy -: w?EF 20-25% -: defibrilator -: PNA -: defib/pacemaker placement x2 -: exploratory lap -: appendectomy Psychosocial/ Personal History: Patient lives patient lives at home with family - Family History Father -: Lung disease Mother -: Heart disease, Hypertension, Diabetes Sister -: Diabetes Brother -: Diabetes, Kidney disease - Social History Smoking Status: Never smoker Alcohol use: No CD- Drugs: No Caffeine use: No Place of Residence: Home Review of Systems 10-point ROS is otherwise unremarkable General: Weakness Cardiovascular: As per HPI Physical Examination - Physical Exam General: Alert, Oriented x3 HEENT: Atraumatic, PERRLA, Other (Mucous membranes pale), EOMI, Sclerae nonicteric Neck: Supple, 2+ carotid pulse no bruit, No LAD, Without JVD or thyroid abnormality Respiratory: Clear to auscultation bilaterally, Normal air movement Cardiovascular: Regular rate/rhythm, Normal S1 S2 Gastrointestinal: Normal bowel sounds, No tenderness Musculoskeletal: No tenderness Integumentary: No rashes Neurological: Normal speech, Normal strength at 5/5 x4 extr, Normal tone, Normal affect - Studies Laboratory Data (last 24 hrs) 03/10/21 21:44: PT 11.0, INR 0.96 03/10/21 21:44: WBC 8.60, Hgb 7.8 L, Hct 23.6 L, Plt Count 155 03/10/21 21:44: Sodium 139, Potassium 4.4, BUN 32 H, Creatinine 2.09 H, Glucose 237 H, Magnesium 2.2, Total Bilirubin 0.2, AST 33, ALT 35, Alkaline Phosphatase 142 H Assessment and Plan - Plan Assessment: Pacemaker firing with history of chronic systolic congestive heart failure with known EF of 23% Atrial fibrillation on chronic anticoagulation FELICIA on CKD 4 Diabetes mellitus type 2 insulin-dependent Hypertension Hyperlipidemia Seizure disorder Acute blood loss anemia UTI Plan: Pacemaker firing with history of chronic systolic congestive heart failure with known EF of 23%: Attempting to interrogate pacemaker. Cardiology has been consulted. Likely related to acute blood loss anemia related to GI bleed. Patient had colonoscopy yesterday at [facility] and is no longer bleeding at this time. Was previously bleeding bright red blood per rectum. denies melena or coffee-ground emesis at this time. Electrolytes within normal limits. Will monitor on telemetry. Atrial fibrillation on chronic anticoagulation: Patient takes 5 mg Eliquis p.o. twice daily. Had been holding it for the past 3 days but did take 1 dose this morning. we will be holding it now FELICIA on CKD 4: Nephrology consulted. Mild to worsening renal function. Will obtain CPK and uric acid levels. Diabetes mellitus type 2 insulin-dependent: ACHS Accu-Cheks. Sliding scale insu ryder. Hypertension: Home medications continued Hyperlipidemia: Home medications continue Seizure disorder: Obtaining Dilantin level with morning labs. We will continue Dilantin after Acute blood loss anemia: Patient was discharged from [facility] this morning after blood loss per rectum. States her hemoglobin was 9 upon discharge. Hemoglobin is 7.8 here. Patient is a Restorationist and declines blood products. Iron studies have been ordered and will likely supplement iron tomorrow. No active bleeding noted or reported at this time UTI: Continue Rocephin. Urine culture pending DVT PPX: SCDs Code status: DNR Discharge Plan: Home Plan to discharge in: 72 Hours - Advance Directives Does patient have a Living Will: No Does patient have a Durable POA for Healthcare: No - Code Status/Comfort Care Code Status Assessed: Yes (DNR) Critical Care: No Time Spent Managing Pts Care (In Minutes): 55
--- NOTE | 2021-03-10 23:34 | ER ---
Nurse's Notes [facility] Name: Teena Simpson Age: 76 yrs Sex: Female : 1945 Arrival Date: 03/10/2021 Time: 21:01 Bed 4 Private MD: Diagnosis: Presence of automatic (implantable) cardiac defibrillator-Possible malfunction;Acute on chronic combined systolic (congestive) and diastolic (congestive) heart failure;Acute on chronic kidney disease Presentation: 03/10 21:16 Chief complaint: EMS states: patients family called EMS and stated patients internal al4 defibrillator has gone off 4 times since 4pm today. patient states that before the defibrillator went off each time she felt dizzy and short of breath. patient is not currently in pain. Coronavirus screen: At this time, the client does not indicate any symptoms associated with coronavirus-19. Ebola Screen: No symptoms or risks identified at this time. Initial Sepsis Screen: Does the patient meet any 2 criteria? HR > 90 bpm. Does the patient have a suspected source of infection? No. Patient's initial sepsis screen is negative. Risk Assessment: Do you want to hurt yourself or someone else? Patient reports no desire to harm self or others. Onset of symptoms was March 10, 2021. 21:16 Method Of Arrival: EMS: [facility] al4 21:16 Acuity: [facility]YS[place] 3 al4 Historical: - Allergies: 21:23 No Known Allergies; al4 - PMHx: 21:23 Anxiety; Low HR; Atrial Fib; CHF; Diabetes - IDDM; High Cholesterol; Hypertension; al4 Myocardial infarction; neuropathy; Seizures; - Immunization history:: Adult Immunizations up to date, Client reports receiving the 2nd dose of the Covid vaccine, Pneumococcal vaccine is up to date, Flu vaccine is up to date. - Social history:: Smoking status: Patient denies any tobacco usage or history of. Screenin:32 Abuse screen: Denies threats or abuse. Nutritional screening: No deficits noted. al4 Tuberculosis screening: No symptoms or risk factors identified. 03/11 01:59 Fall Risk No fall in past 12 months (0 pts). IV access (20 points). Ambulatory Aid- al4 None/Bed Rest/Nurse Assist (0 pts). Gait- Normal/Bed Rest/Wheelchair (0 pts) Mental Status- Oriented to own ability (0 pts). Total Lynch Fall Scale indicates No Risk (0-24 pts). Assessment: 03/10 21:35 General: Appears in no apparent distress. comfortable, Behavior is calm, cooperative, al4 appropriate for age. Pain: Denies pain. Neuro: Level of Consciousness is awake, alert, obeys commands, Oriented to person, place, time, situation. Cardiovascular: Heart tones present Capillary refill < 3 seconds Patient's skin is warm and dry. Respiratory: Airway is patent Respiratory effort is even, unlabored, Respiratory pattern is regular, symmetrical, Breath sounds are clear. GI: No signs and/or symptoms were reported involving the gastrointestinal system. : No signs and/or symptoms were reported regarding the genitourinary system. EENT: No signs and/or symptoms were reported regarding the EENT system. Derm: No signs and/or symptoms reported regarding the dermatologic system. Musculoskeletal: No signs and/or symptoms reported regarding the musculoskeletal system. 22:30 Reassessment: Patient and/or family updated on plan of care and expected duration. Pain al4 level reassessed. Patient is alert, oriented x 3, equal unlabored respirations, skin warm/dry/pink. 23:20 Reassessment: Patient and/or family updated on plan of care and expected duration. Pain al4 level reassessed. Patient is alert, oriented x 3, equal unlabored respirations, skin warm/dry/pink. 03/11 00:00 Reassessment: Patient and/or family updated on plan of care and expected duration. Pain al4 level reassessed. Patient is alert, oriented x 3, equal unlabored respirations, skin warm/dry/pink. 01:06 Reassessment: Patient is alert, oriented x 3, equal unlabored respirations, skin al4 warm/dry/pink. 01:35 Reassessment: Attempted to call report. Spoke to Imelda who said she will call me back. al4 02:00 Reassessment: Patient and/or family updated on plan of care and expected duration. Pain al4 level reassessed. Patient is alert, oriented x 3, equal unlabored respirations, skin warm/dry/pink. Vital Signs: 03/10 21:16 BP 140 / 61; Pulse 112; Resp 18 S; Temp 98.3; Pulse Ox 100% on R/A; al4 22:30 BP 162 / 74; Pulse 96; Resp 14 S; Pulse Ox 99% on R/A; al4 23:00 BP 157 / 64; Pulse 93; Resp 16 S; Pulse Ox 99% on R/A; al4 03/11 00:02 BP 121 / 60; Pulse 89; Resp 18 S; Pulse Ox 98% on R/A; al4 01:31 BP 147 / 60; Pulse 83; Resp 19 S; Pulse Ox 99% on R/A; al4 02:00 BP 118 / 61; Pulse 92; Resp 19 S; Pulse Ox 100% on R/A; al4 ED Course: 03/10 21:01 Patient arrived in ED. al4 21:02 Warren Pitts MD is Attending Physician. [facility] 21:15 Sadie Lake, WM is Primary Nurse. 5 21:23 Triage completed. al4 21:32 Patient has correct armband on for positive identification. Placed in gown. Bed in low al4 position. Call light in reach. Side rails up X2. 21:33 Arm band placed on. al4 21:35 XRAY Chest (1 view) In Process Unspecified. EDMS 21:43 Inserted saline lock: 24 gauge in right hand, using aseptic technique. 4 21:54 Basic Metabolic Panel Sent. sm5 21:54 CBC with Diff Sent. sm5 21:54 LFT's Sent. sm5 21:54 Magnesium Sent. sm5 21:54 NT PRO-BNP Sent. sm5 21:54 PT-INR Sent. 5 23:31 Yuri Ritter DO is Hospitalizing Provider. [facility] 03/11 00:53 COVID-19 SARS RT PCR (Document "Date of Onset" if Symptomatic) Sent. 5 01:30 supervisor lead burning on. Pulse ox on. NIBP on. Door closed. Warm blanket given. al4 02:00 No provider procedures requiring assistance completed. Patient admitted, IV remains in al4 place. Administered Medications: 03/10 23:55 Drug: Rocephin (cefTRIAXone) 1 grams Route: IV; Rate: per protocol; Site: right hand; al4 23:56 Follow up: IV Status: Completed infusion al4 03/11 00:30 Follow up: Response: No adverse reaction; IV Intake: 10ml fl4 03/10 23:55 Drug: Lasix (furosemide) 40 mg Route: IVP; Site: right hand; al4 03/11 00:34 Follow up: Response: No adverse reaction al4 01:34 Drug: XANax (alprazolam) Tablet 0.25 mg Route: PO; sm5 02:06 Follow up: Response: Marked relief of symptoms al4 Intake: 00:30 IV: 10ml; Total: 10ml. al4 Outcome: 03/10 23:33 Decision to Hospitalize by Provider. [facility] 03/11 02:00 Admitted to Med/surg accompanied by tech, room 221, Report called to WM Segura al4 Condition: stable Instructed on the need for admit. 02:51 Patient left the ED. as6 Signatures: Dispatcher [employer] EDMS Alexander Arreguin 4 Warren Pitts MD MD 7 Jermaine Disla RN RN as6 Ed Snow al4 Sadie Lake RN RN sm5
--- NOTE | 2021-03-10 23:34 | EDPHYS ---
Physician Documentation [facility] Name: Teena Simpson Age: 76 yrs Sex: Female : 1945 Arrival Date: 03/10/2021 Time: 21:01 Bed 4 Private MD: ED Physician Warren Pitts HPI: 03/10 21:13 This 76 yrs old Female presents to ER via Unassigned with complaints of mh7 Defibrillator firing multiple times. 21:13 The patient presents with a history of Defibrillator firing multiple times. Context: mh7 The symptoms occur at rest. Onset: The symptoms/episode began/occurred today, at 16:00. Duration: The patient or guardian reports multiple episodes, that are intermittent, that wax and wane, with no pattern, four times. Modifying factors: The symptoms are aggravated by nothing. The symptoms are alleviated by nothing. Associated signs and symptoms: Pertinent negatives: anxiety, chest pain, cough, fever, lightheadedness, nausea, SOB, syncope, near-syncope, unusual stressors, vertigo, vomiting. Severity of symptoms: At their worst the symptoms were moderate today, in the emergency department the symptoms have resolved and did so just prior to arrival. Patient states that her defibrillator has fired four times a day. She denies any symptoms before or after episodes including headache, chest pain, abdominal pain, shortness of breath, nausea, vomiting, dizziness, numbness/tingling, or weakness. She reports being discharged from another hospital earlier today after having a colonoscopy.. Historical: - Allergies: 21:23 No Known Allergies; al4 - PMHx: 21:23 Anxiety; Low HR; Atrial Fib; CHF; Diabetes - IDDM; High Cholesterol; Hypertension; al4 Myocardial infarction; neuropathy; Seizures; - Immunization history:: Adult Immunizations up to date, Client reports receiving the 2nd dose of the Covid vaccine, Pneumococcal vaccine is up to date, Flu vaccine is up to date. - Social history:: Smoking status: Patient denies any tobacco usage or history of. ROS: 21:13 Constitutional: Negative for fever, chills, and weight loss, Eyes: Negative for injury, mh7 pain, redness, and discharge, ENT: Negative for injury, pain, and discharge, Neck: Negative for injury, pain, and swelling. 21:13 Respiratory: Negative for shortness of breath, cough, wheezing, and pleuritic chest pain, Abdomen/GI: Negative for abdominal pain, nausea, vomiting, diarrhea, and constipation, Back: Negative for injury and pain, : Negative for injury, bleeding, discharge, and swelling, MS/Extremity: Negative for injury and deformity, Skin: Negative for injury, rash, and discoloration, Neuro: Negative for headache, weakness, numbness, tingling, and seizure, Psych: Negative for depression, anxiety, suicide ideation, homicidal ideation, and hallucinations, Allergy/Immunology: Negative for hives, rash, and allergies, Endocrine: Negative for neck swelling, polydipsia, polyuria, polyphagia, and marked weight changes, Hematologic/Lymphatic: Negative for swollen nodes, abnormal bleeding, and unusual bruising. 21:13 Cardiovascular: Negative for chest pain, edema, orthopnea, paroxysmal nocturnal dyspnea. Exam: 21:13 Constitutional: This is a well developed, well nourished patient who is awake, alert, mh7 and in no acute distress. Head/Face: Normocephalic, atraumatic. Eyes: Pupils equal round and reactive to light, extra-ocular motions intact. Lids and lashes normal. Conjunctiva and sclera are non-icteric and not injected. Cornea within normal limits. Periorbital areas with no swelling, redness, or edema. Neck: Trachea midline, no thyromegaly or masses palpated, and no cervical lymphadenopathy. Supple, full range of motion without nuchal rigidity, or vertebral point tenderness. No Meningismus. Chest/axilla: Normal chest wall appearance and motion. Nontender with no deformity. No lesions are appreciated. Respiratory: Lungs have equal breath sounds bilaterally, clear to auscultation and percussion. No rales, rhonchi or wheezes noted. No increased work of breathing, no retractions or nasal flaring. 21:13 Abdomen/GI: Soft, non-tender, with normal bowel sounds. No distension or tympany. No guarding or rebound. No evidence of tenderness throughout. Back: No spinal tenderness. No costovertebral tenderness. Full range of motion. Skin: Warm, dry with normal turgor. Normal color with no rashes, no lesions, and no evidence of cellulitis. MS/ Extremity: Pulses equal, no cyanosis. Neurovascular intact. Full, normal range of motion. Neuro: Awake and alert, GCS 15, oriented to person, place, time, and situation. Cranial nerves II-XII grossly intact. Motor strength 5/5 in all extremities. Sensory grossly intact. Cerebellar exam normal. Normal gait. Psych: Awake, alert, with orientation to person, place and time. Behavior, mood, and affect are within normal limits. 21:13 Cardiovascular: Rate: tachycardic, Rhythm: regular, Pulses: no pulse deficits are appreciated, Heart sounds: normal, normal S1and S2, Edema: is not appreciated, JVD: is not appreciated. Vital Signs: 21:16 BP 140 / 61; Pulse 112; Resp 18 S; Temp 98.3; Pulse Ox 100% on R/A; al4 22:30 BP 162 / 74; Pulse 96; Resp 14 S; Pulse Ox 99% on R/A; al4 23:00 BP 157 / 64; Pulse 93; Resp 16 S; Pulse Ox 99% on R/A; al4 03/11 00:02 BP 121 / 60; Pulse 89; Resp 18 S; Pulse Ox 98% on R/A; al4 01:31 BP 147 / 60; Pulse 83; Resp 19 S; Pulse Ox 99% on R/A; al4 02:00 BP 118 / 61; Pulse 92; Resp 19 S; Pulse Ox 100% on R/A; al4 MDM: 03/10 23:30 Differential diagnosis: arrythmia, dehydration, stress disorder. Data reviewed: vital [facility] signs, nurses notes, old medical records, lab test result(s), cardiac enzymes, CBC, electrolytes, urinalysis, EKG, radiologic studies, plain films. Data interpreted: Pulse oximetry: on room air is 99 %. Interpretation: normal. Counseling: I had a detailed discussion with the patient and/or guardian regarding: the historical points, exam findings, and any diagnostic results supporting the discharge/admit diagnosis, the presence of at least one elevated blood pressure reading (>120/80) during this emergency department visit, lab results, radiology results, the need for further work-up and treatment in the hospital. Response to treatment: the patient's symptoms have markedly improved after treatment. 23:33 Patient medically screened. [facility] 03/10 21:08 Order name: Basic Metabolic Panel; Complete Time: :33 [facility] 03/10 21:08 Order name: CBC with Diff; Complete Time: 22:19 [facility] 03/10 21:08 Order name: LFT's; Complete Time: 22:33 [facility] 03/10 21:08 Order name: Magnesium; Complete Time: 22:33 [facility] 03/10 21:08 Order name: NT PRO-BNP; Complete Time: 22:33 [facility] 03/10 21:08 Order name: PT-INR; Complete Time: 22:19 [facility] 03/10 21:08 Order name: Troponin HS; Complete Time: 22:33 [facility] 03/10 21:08 Order name: XRAY Chest (1 view); Complete Time: 22:06 [facility] 03/10 22:24 Order name: Urine Dipstick-Ancillary; Complete Time: 22:33 [facility] 03/10 22:27 Order name: Urine Microscopic Only; Complete Time: 23:12 [facility] 03/10 22:57 Order name: Urine Culture [facility] 03/10 23:55 Order name: COVID-19 SARS RT PCR (Document "Date of Onset" if Symptomatic) [facility] 03/11 01:08 Order name: SARS-COV-2 RT PCR [facility] 03/10 21:08 Order name: EKG; Complete Time: 21:09 [facility] 03/10 21:08 Order name: Cardiac monitoring; Complete Time: 21:13 [facility] 03/10 21:08 Order name: EKG - Nurse/Tech; Complete Time: 21:13 [facility] 03/10 21:08 Order name: IV Saline Lock; Complete Time: 21:43 [facility] 03/10 21:08 Order name: Labs collected and sent; Complete Time: 21:54 [facility] 03/10 21:08 Order name: O2 Per Protocol; Complete Time: 21:13 [facility] 03/10 21:08 Order name: O2 Sat Monitoring; Complete Time: 21:13 [facility] 03/10 21:08 Order name: Urine Dipstick-Ancillary (obtain specimen); Complete Time: 22:26 [facility] Administered Medications: 23:55 Drug: Rocephin (cefTRIAXone) 1 grams Route: IV; Rate: per protocol; Site: right hand; [facility] 23:56 Follow up: IV Status: Completed infusion ny4 03/11 00:30 Follow up: Response: No adverse reaction; IV Intake: 10ml [facility] 03/10 23:55 Drug: Lasix (furosemide) 40 mg Route: IVP; Site: right hand; al4 03/11 00:34 Follow up: Response: No adverse reaction al4 01:34 Drug: XANax (alprazolam) Tablet 0.25 mg Route: PO; sm5 02:06 Follow up: Response: Marked relief of symptoms al4 Disposition Summary: 03/10/21 23:33 Hospitalization Ordered Hospitalization Status: Inpatient Admission [facility] Provider: Yuri Ritter Jb Location: Telemetry/MedSurg (Inpatient) [facility] Condition: Stable [facility] Problem: new [facility] Symptoms: have improved [facility] Bed/Room Type: Standard [facility] Room Assignment: 221(03/11/21 01:25) cg Diagnosis - Presence of automatic (implantable) cardiac defibrillator - Possible malfunction [facility] - Acute on 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
[2021-03-10] MEDS ORDERED: CEFTRIAXONE 1000 MG/VIAL ONE (23:45)
[2021-03-10] MEDS ORDERED: FUROSEMIDE 40 MG/4 ML VIAL ONE (23:45)
[2021-03-11] MEDS ORDERED: ALPRAZOLAM 0.25 MG TABLET ONE (01:21)
[2021-03-11] MEDS ORDERED: ACETAMINOPHEN 500 MG TAB PO PRN (02:07)
[2021-03-11] MEDS ORDERED: ONDANSETRON 4 MG/2 ML VIAL IV PRN (02:07)
[2021-03-11 03:00] LABS: Absolute Lymphocytes (CBC) 2.1 K/uL (0.7-4.9); Hematocrit 29.8 % (36.0-45.0); MPV 9.7 fL (7.6-11.3); RBC Red Blood Cell Count 3.23 M/uL (3.86-4.86)
[2021-03-11 03:30] LABS: Albumin 2.8 g/dL (3.4-5.0); Bilirubin Total 0.1 mg/dL (0.2-1.0); Ferritin 52.3 ng/mL (8-388); Magnesium 2.4 mg/dL (1.8-2.4); Phenytoin (Dilantin) Level 5.8 ug/mL (10.0-20.0); Potassium 4.2 mmol/L (3.5-5.1); Protein, Total 6.7 g/dL (6.4-8.2); Uric Acid 6.8 mg/dL (2.6-6.0)
[2021-03-11 04:01] VITALS: BMI 38.2
[2021-03-11 04:11] LABS: Troponin High Sensitivity 1433.4 pg/mL (<58.9)
[2021-03-11 04:39] LABS: Urine Appearance CLEAR (Clear); Urine Bilirubin NEGATIVE (Negative); Urine Blood TRACE (Negative); Urine Color YELLOW (Yellow); Urine Glucose NEGATIVE (Negative); Urine Microscopic Reflex ORDER UMIC; Urine Protein 2+ (Negative); Urine Specific Gravity <=1.005 (1.005-1.030); Urine Urobilinogen 0.2 mg/dL (0.2-1.0); Urine pH 6.5 (5.0-7.0)
[2021-03-11 04:43] LABS: Urine Bacteria <20 /HPF (<20); Urine RBC <5 /HPF (NONE SEEN)
--- NOTE | 2021-03-11 05:42 | P.CNS ---
Date of Consult: 03/11/21 Reason for Consult: FELICIA, CKD Requesting Physician: Yuri Ritter Chief Complaint: Pacemaker firing History of Present Illness: 76F Mu-ism, w/ PMHx of CKD4, baseline SCr 1.4-1.7 as of 11/08/2019, Htn, CHF s/p PPM, DM2, afib, & seizure dso who p/w pacemaker firing, admitted for further eval/mngt. Referred to Nephrology for FELICIA. SCr on adm 2.1. No c/o fever, dysuria, or flank pain. Allergies No Known Allergies Allergy (Verified 07/19/19 02:02) Home Medications: Atorvastatin Calcium 40 mg PO BEDTIME 08/27/15 PHENYTOIN ER Cap [Dilantin ER Cap*] 200 mg PO BEDTIME 08/27/15 Furosemide [Lasix*] 40 mg PO BID 04/07/16 Phenytoin Sodium Extended [Dilantin] 100 mg PO DAILY 07/16/19 Amlodipine [Norvasc*] 5 mg PO DAILY 03/11/21 Amox/Clavulanate [Augmentin 500-125 mg Tab*] 500 mg PO BID #14 tab 03/11/21 Apixaban [Eliquis *] 5 mg PO BID 03/11/21 Hydralazine HCl [Apresoline] 50 mg PO Q8H 03/11/21 Insulin NPH Human Isophane [Humulin N] 20 unit SQ BID 03/11/21 Insulin Regular, Human [Humulin R U-500 Kwikpen] 10 unit SQ TID 03/11/21 Metoprolol Succinate [Toprol Xl*] 50 mg PO BID 6AM 6PM #60 tab 03/11/21 Pantoprazole [Protonix Tab*] 40 mg PO DAILY 03/11/21 - Past Medical/Surgical History Diabetic: Yes -: seizures -: afib -: iddm -: hypertension -: hyperlipidemia -: chf -: bladder infection -: cad -: neuropathy -: w?EF 20-25% -: defibrilator -: PNA -: defib/pacemaker placement x2 -: exploratory lap -: appendectomy Psychosocial/ Personal History: Patient lives patient lives at home with family - Family History Father Medical History: Lung disease Mother Medical History: Heart disease, Hypertension, Diabetes Sister Medical History: Diabetes Brother Medical History: Diabetes, Kidney disease - Social History Smoking Status: Unknown if ever smoked Alcohol use: No CD- Drugs: No Caffeine use: Yes Place of Residence: Home Review of Systems General: Unremarkable Eyes: Unremarkable ENT: Unremarkable Respiratory: Unremarkable Cardiovascular: Other (PPM firing) Gastrointestinal: Unremarkable Genitourinary: Unremarkable Musculoskeletal: Unremarkable Integumentary: Unremarkable Neurological: Unremarkable Physical Examination Temp Pulse Resp BP Pulse Ox 98.3 F 92 H 19 118/61 03/10/21 21:16 03/11/21 02:00 03/11/21 02:00 03/11/21 02:00 General: In no apparent distress HEENT: Atraumatic, Normocephalic Neck: Supple, JVD not distended Respiratory: Other (symmetric chest expansion) Cardiovascular: No rubs, No murmurs Gastrointestinal: Soft and benign, Non-distended Musculoskeletal: No clubbing Integumentary: No warmth Neurological: Normal speech, Normal tone Lymphatics: No axilla or inguinal lymphadenopathy Urinary: Other (no bladder distention) Rectal: Deferred Laboratory Data (last 24 hrs) 03/10/21 21:44: PT 11.0, INR 0.96 03/10/21 21:44: WBC 8.60, Hgb 7.8 L, Hct 23.6 L, Plt Count 155 03/10/21 21:44: Sodium 139, Potassium 4.4, BUN 32 H, Creatinine 2.09 H, Glucose 237 H, Magnesium 2.2, Total Bilirubin 0.2, AST 33, ALT 35, Alkaline Phosphatase 142 H Conclusions/Impression: 1. FELICIA likely 2/2 CRS1, on CKD4. Baseline SCr 1.4-1.7 as of 11/08/2019. Monitor renal panel. [place] po fluid intake. 2. Chronic systolic HF. LVEF 23% s/p PPM/AICD, +firing. Discussed w/ Cardio. Metoprolol dose increased. 3. Chronic Afib. S/p ablation previously. Cont Metoprolol & Eliquis. 4. Htn. Cont current BP med regimen. 5. Anemia. Further mngt as outpt. 6. Dispo. Dc today. F/u in renal clinic w/ Dr. Shannon.
[2021-03-11] MEDS ORDERED: METOPROLOL XL 50 MG TAB PO SCH ×2 (06:00→18:00)
--- NOTE | 2021-03-11 06:04 | P.DS ---
Admission Date: 03/10/21 Discharge Date: 03/11/21 Disposition: ROUTINE DISCHARGE Discharge Condition: GOOD Reason for Admission: Pacemaker firing Consultations: Cardiology-Dr. Graf Nephrology-Dr. Bronson Procedures: COVID: Negative CXR: COMPARISON: Chest Single View dated 05/31/2020; Chest Single View dated 11/08/2019; Chest Single View dated 07/22/2019; Chest Single View dated 07/18/2019 FINDINGS: Portable technique limits examination quality. Mild interstitial pulmonary edema. The heart is mildly enlarged in size. Multi lead pacer/defibrillator device is present. IMPRESSION: Mild CHF. Medical Problem List: Pacemaker firing with history of chronic systolic congestive heart failure with known EF of 23% Atrial fibrillation on chronic anticoagulation FELICIA on CKD 4 Diabetes mellitus type 2 insulin-dependent Hypertension Hyperlipidemia Seizure disorder Acute blood loss anemia UTI Brief History of Present Illness: 76-year-old female with history of systolic congestive heart failure, insulin-dependent type 2 diabetes, A. fib, on chronic anticoagulation, hypertension, seizure disorder, pacemaker placement presents to the emergency department with complaints of her pacemaker firing 4 times today. she was discharged from [facility] today after being hospitalized for 4 days with bright red blood per rectum. she received a colonoscopy there and once the bleeding ended she was discharged. She states her hemoglobin was 9 at [facility] it is 7.8 today. 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 Patient had been holding her Eliquis for the past 3 days but did take a dose this morning. patient denies any bright red blood per rectum, melena, or coffee-ground emesis at this time. Work-up in the ER showed labs significant for creatinine 2.09 glucose 237 troponin high-sensitivity 250 BNP 2937 hemoglobin 7.8. Chest x-ray revealed mild CHF. Patient will be admitted for further evaluation and medical management. Allergies No Known Allergies Allergy (Verified 07/19/19 02:02) Home Medications: Atorvastatin Calcium 40 mg PO BEDTIME 08/27/15 PHENYTOIN ER Cap [Dilantin ER Cap*] 200 mg PO BEDTIME 08/27/15 Rivaroxaban [Xarelto*] 15 mg PO DAILY 08/27/15 Furosemide [Lasix*] 40 mg PO SEECOM 04/07/16 Digoxin [Lanoxin*] 0.125 mg PO DAILY 07/16/19 Insulin -Regular Human [Novolin -R*] 0 unit SQ SEECOM 07/16/19 Insulin NPH Human Isophane [Novolin N] 25 unit SQ DAILY 07/16/19 Metoprolol Succinate 25 mg PO BID 07/16/19 Phenytoin Sodium Extended [Dilantin] 100 mg PO DAILY 07/16/19 Sacubitril/Valsartan [Entresto 24 mg-26 mg Tablet] 0.5 tab PO BID 07/16/19 - Past Medical/Surgical History Diabetic: Yes -: seizures -: afib -: iddm -: hypertension -: hyperlipidemia -: chf -: bladder infection -: cad -: neuropathy -: w?EF 20-25% -: defibrilator -: PNA -: defib/pacemaker placement x2 -: exploratory lap -: appendectomy Psychosocial/ Personal History: Patient lives patient lives at home with family - Family History Father -: Lung disease Mother -: Heart disease, Hypertension, Diabetes Sister -: Diabetes Brother -: Diabetes, Kidney disease - Social History Smoking Status: Never smoker Alcohol use: No CD- Drugs: No Caffeine use: No Place of Residence: Home Review of Systems 10-point ROS is otherwise unremarkable General: Weakness Cardiovascular: As per HPI Physical Examination - Physical Exam General: Alert, Oriented x3 HEENT: Atraumatic, PERRLA, Other (Mucous membranes pale), EOMI, Sclerae nonicteric Neck: Supple, 2+ carotid pulse no bruit, No LAD, Without JVD or thyroid abnormality Respiratory: Clear to auscultation bilaterally, Normal air movement Cardiovascular: Regular rate/rhythm, Normal S1 S2 Gastrointestinal: Normal bowel sounds, No tenderness Musculoskeletal: No tenderness Integumentary: No rashes Neurological: Normal speech, Normal strength at 5/5 x4 extr, Normal tone, Normal affect - Studies Laboratory Data (last 24 hrs) 03/10/21 21:44: PT 11.0, INR 0.96 03/10/21 21:44: WBC 8.60, Hgb 7.8 L, Hct 23.6 L, Plt Count 155 03/10/21 21:44: Sodium 139, Potassium 4.4, BUN 32 H, Creatinine 2.09 H, Glucose 237 H, Magnesium 2.2, Total Bilirubin 0.2, AST 33, ALT 35, Alkaline Phosphatase 142 H Assessment and Plan Hospital Course: Plan: Pacemaker firing with history of chronic systolic congestive heart failure with known EF of 23%: Attempting to interrogate pacemaker. Cardiology has been consulted. Likely related to acute blood loss anemia related to GI bleed. Pooja galloway had colonoscopy yesterday at [facility] and is no longer bleeding at this time. Was previously bleeding bright red blood per rectum. denies melena or coffee-ground emesis at this time. Electrolytes within normal limits. Will monitor on telemetry. Atrial fibrillation on chronic anticoagulation: Patient takes 5 mg Eliquis p.o. twice daily. Had been holding it for the past 3 days but did take 1 dose this morning. we will be holding it now FELICIA on CKD 4: Nephrology consulted. Mild to worsening renal function. Will obtain CPK and uric acid levels. Diabetes mellitus type 2 insulin-dependent: ACHS Accu-Cheks. Sliding scale insulin. Hypertension: Home medications continued Hyperlipidemia: Home medications continue Seizure disorder: Obtaining Dilantin level with morning labs. We will continue Dilantin after Acute blood loss anemia: Patient was discharged from [facility] this morning after blood loss per rectum. States her hemoglobin was 9 upon discharge. Hemoglobin is 7.8 here. Patient is a W[employer] and declines blood products. Iron studies have been ordered and will likely supplement iron tomorrow. No active bleeding noted or reported at this time UTI: Continue Rocephin. Urine culture pending DVT PPX: SCDs Code status: DNR Discharge Plan: Home Plan to discharge in: 72 Hours - Advance Directives Does patient have a Living Will: No Does patient have a Durable POA for Healthcare: No - Code Status/Comfort Care Code Status Assessed: Yes (DNR) Critical Care: No Time Spent Managing Pts Care (In Minutes): 55 Vital Signs/Physical Exam: Temp Pulse Resp BP Pulse Ox 98.3 F 84 19 117/56 L 03/10/21 21:16 03/11/21 05:51 03/11/21 02:00 03/11/21 05:51 Laboratory Data at Discharge: WBC 8.90 K/uL (4.3-10.9) 03/11/21 02:24 Hgb 9.8 g/dL (12.0-15.0) L 03/11/21 02:24 Hct 29.8 % (36.0-45.0) L D 03/11/21 02:24 Plt Count 244 K/uL (152-406) D 03/11/21 02:24 PT 11.0 SECONDS (9.5-12.5) 03/10/21 21:44 INR 0.96 03/10/21 21:44 Sodium 140 mmol/L (136-145) 03/11/21 02:24 Potassium 4.2 mmol/L (3.5-5.1) 03/11/21 02:24 BUN 32 mg/dL (7-18) H 03/11/21 02:24 Creatinine 2.05 mg/dL (0.55-1.3) H 03/11/21 02:24 Glucose 202 mg/dL (74-106) H 03/11/21 02:24 Uric Acid 6.8 mg/dL (2.6-6.0) H 03/11/21 02:24 Magnesium 2.4 mg/dL (1.8-2.4) 03/11/21 02:24 Total Bilirubin 0.1 mg/dL (0.2-1.0) L 03/11/21 02:24 AST 31 U/L (15-37) 03/11/21 02:24 ALT 31 U/L (12-78) 03/11/21 02:24 Alkaline Phosphatase 132 U/L (45-117) H 03/11/21 02:24 Home Medications: Atorvastatin Calcium 40 mg PO BEDTIME 08/27/15 PHENYTOIN ER Cap [Dilantin ER Cap*] 200 mg PO BEDTIME 08/27/15 Rivaroxaban [Xarelto*] 15 mg PO DAILY 08/27/15 Furosemide [Lasix*] 40 mg PO SEECOM 04/07/16 Digoxin [Lanoxin*] 0.125 mg PO DAILY 07/16/19 Insulin -Regular Human [Novolin -R*] 0 unit SQ SEECOM 07/16/19 Insulin NPH Human Isophane [Novolin N] 25 unit SQ DAILY 07/16/19 Metoprolol Succinate 25 mg PO BID 07/16/19 Phenytoin Sodium Extended [Dilantin] 100 mg PO DAILY 07/16/19 Sacubitril/Valsartan [Entresto 24 mg-26 mg Tablet] 0.5 tab PO BID 07/16/19 Followup: NONE,NONE [Primary Care Provider] -
[2021-03-11] MEDS ORDERED: PANTOPRAZOLE 40MG TABLET PO SCH (06:30)
[2021-03-11] MEDS ORDERED: PNEUMOCOCCAL VACCINE 0.5 ML IMVAC ONE (08:00)
[2021-03-11] MEDS ORDERED: FUROSEMIDE 40 MG TABLET PO SCH (09:00)
[2021-03-11] MEDS ORDERED: CEFTRIAXONE 1,000 MG in NA CHLORIDE 0.9% 50 ML IVPB SCH (09:00)
[2021-03-11] MEDS ORDERED: AMLODIPINE 5 MG TAB PO SCH (09:00)
[2021-03-11] MEDS ORDERED: AMIODARONE HCL 200 MG TAB PO SCH (09:05)
--- NOTE | 2021-03-11 09:13 | P.PN ---
Subjective Date of Service: 03/11/21 Primary Care Provider: Dr. Moscoso; Cardiology-Dr. Heath Chief Complaint: Pacemaker firing Subjective: Improving (Defibrillator was interrogated. 4 episodes of V. tach and firing was noted. Patient doing well. No complaints noted) Physical Examination - Vital Signs Temperature: 98.3 F Blood Pressure: 117/56 Pulse: 84 Respirations: 19 - Studies Laboratory Data (last 24 hrs) 03/10/21 21:44: PT 11.0, INR 0.96 03/10/21 21:44: WBC 8.60, Hgb 7.8 L, Hct 23.6 L, Plt Count 155 03/10/21 21:44: Sodium 139, Potassium 4.4, BUN 32 H, Creatinine 2.09 H, Glucose 237 H, Magnesium 2.2, Total Bilirubin 0.2, AST 33, ALT 35, Alkaline Phosphatase 142 H Assessment & Plan Discharge Plan: Home Plan to discharge in: 24 Hours Physician Review Additional Text: COVID: Negative CXR: COMPARISON: Chest Single View dated 05/31/2020; Chest Single View dated 11/08/2019; Chest Single View dated 07/22/2019; Chest Single View dated 07/18/2019 FINDINGS: Portable technique limits examination quality. Mild interstitial pulmonary edema. The heart is mildly enlarged in size. Multi lead pacer/defibrillator device is present. IMPRESSION: Mild CHF. Physical Exam: GENERAL: The patient is a well-developed, well-nourished, in no apparent distress. Alert and oriented x3. VITAL SIGNS: Reviewed HEENT: Head is normocephalic and atraumatic. Extraocular muscles are intact. Pupils are equal, round, and reactive to light and accommodation. Nares appeared normal. Mouth is well hydrated and without lesions. Mucous membranes are moist. NECK: Supple. No carotid bruits. No lymphadenopathy or thyromegaly. LUNGS: Clear to auscultation. No crackles or wheezes are heard. HEART: Regular rate and rhythm, no appreciable gallops, rubs, murmurs or extra heart sounds ABDOMEN: Soft, nontender, and nondistended. Positive bowel sounds. No hepatosplenomegaly was noted. EXTREMITIES: Without any cyanosis, clubbing, rash, lesions or peripheral edema. NEUROLOGIC: The patient is oriented to person, place and time. Strength and sensation are grossly intact. Face is symmetric. SKIN: Normal color, turgor and temperature. No ulcerations or rashes noted. Impression: Pacemaker firing with noted V. tach and history of chronic systolic congestive heart failure with known EF of 23% Atrial fibrillation on chronic anticoagulation FELICIA on CKD 4 Diabetes mellitus type 2 insulin-dependent Hypertension Hyperlipidemia Seizure disorder Anemia chronic disease UTI Plan: Pacemaker firing with noted V. tach and history of chronic systolic congestive heart failure with known EF of 23%: Pacemaker defibrillator was interrogated. 4 episodes of V. tach were noted with 4 firings. Overall stable. Troponin improved. Case discussed in detail with cardiology. Cardiology recommends starting amiodarone 400 mg twice daily then after 1 week transition to 200 mg daily. Will discuss with her cardiologistDr. Heath at [facility] concerning plan of care. Possible discharge later today after discussion with her construction superintendent. Patient will need close follow-up. Atrial fibrillation on chronic anticoagulation: We will need to verify home medications. Currently on metoprolol 25 mg 1 pill twice daily. Continue Xarelto. FELICIA on CKD 4: Overall stable. Will discuss with nephrology. Diabetes mellitus type 2 insulin-dependent: Continue Accu-Cheks and sliding scale. Need to obtain and verify home medication. Hypertension: Currently on Norvasc 5 mg daily, hydralazine 50 mg 1 pill twice daily, and metoprolol 25 mg 1 pill twice daily. Will need to verify home medication. Hyperlipidemia: Continue Lipitor 40 mg daily. Need to obtain and verify home medication. Seizure disorder: Continue phenytoin. Need to obtain and verify home medication. Anemia of chronic disease: Overall stable. Recheck lab noted improvement. UTI: Patient with history of UTIs in the past. Currently on Rocephin. Urine culture obtained. Patient is Quaker: No blood products per faith movies. Overall stable. Code Status: DO NOT RESUSCITATE DVT prophylaxis: Xarelto Advanced Care Planning-30 minutes: Home at discharge Time Spent Managing Pts Care (In Minutes): 55
[2021-03-11] MEDS ORDERED: CEFTRIAXONE 1000 MG/VIAL ONE (09:49)
[2021-03-11] MEDS: HYDRALAZINE HCL 25 MG TABLET PO SCH ×2 (09:51→12:38)
[2021-03-11 10:08] VITALS: O2SAT 98
--- NOTE | 2021-03-11 10:29 | P.DS ---
Admission Date: 03/10/21 Discharge Date: 03/11/21 Primary Care Provider: Dr. Moscoso; Cardiology-Dr. Heath Disposition: ROUTINE DISCHARGE Discharge Condition: GOOD Reason for Admission: Pacemaker firing Consultations: Cardiology-Dr. Graf Procedures: COVID: Negative CXR: COMPARISON: Chest Single View dated 05/31/2020; Chest Single View dated 11/08/2019; Chest Single View dated 07/22/2019; Chest Single View dated 07/18/2019 FINDINGS: Portable technique limits examination quality. Mild interstitial pulmonary edema. The heart is mildly enlarged in size. Multi lead pacer/defibrillator device is present. IMPRESSION: Mild CHF. Medical Problem List: Pacemaker firing with noted V. tach and history of chronic systolic congestive heart failure with known EF of 23% Atrial fibrillation on chronic anticoagulation FELICIA on CKD 4 Diabetes mellitus type 2 insulin-dependent Hypertension Hyperlipidemia Seizure disorder Anemia chronic disease UTI Brief History of Present Illness: 76-year-old female with history of systolic congestive heart failure, insulin-dependent type 2 diabetes, A. fib, on chronic anticoagulation, hypertension, seizure disorder, pacemaker placement presents to the emergency department with complaints of her pacemaker firing 4 times today. she was discharged from [facility] today after being hospitalized for 4 days with bright red blood per rectum. she received a colonoscopy there and once the bleeding ended she was discharged. She states her hemoglobin was 9 at [facility] it is 7.8 today. patient is Nondenominational and declines any blood products. Patient had been holding her Eliquis for the past 3 days but did take a dose this morning. patient denies any bright red blood per rectum, melena, or coffee-ground emesis at this time. Work-up in the ER showed labs significant for creatinine 2.09 glucose 237 troponin high-sensitivity 250 BNP 2937 hemoglobin 7.8. Chest x-ray revealed mild CHF. Patient will be admitted for further evaluation and medical management. Allergies No Known Allergies Allergy (Verified 07/19/19 02:02) Home Medications: Atorvastatin Calcium 40 mg PO BEDTIME 08/27/15 PHENYTOIN ER Cap [Dilantin ER Cap*] 200 mg PO BEDTIME 08/27/15 Rivaroxaban [Xarelto*] 15 mg PO DAILY 08/27/15 Furosemide [Lasix*] 40 mg PO SEECOM 04/07/16 Digoxin [Lanoxin*] 0.125 mg PO DAILY 07/16/19 Insulin -Regular Human [Novolin -R*] 0 unit SQ SEECOM 07/16/19 Insulin NPH Human Isophane [Novolin N] 25 unit SQ DAILY 07/16/19 Metoprolol Succinate 25 mg PO BID 07/16/19 Phenytoin Sodium Extended [Dilantin] 100 mg PO DAILY 07/16/19 Sacubitril/Valsartan [Entresto 24 mg-26 mg Tablet] 0.5 tab PO BID 07/16/19 - Past Medical/Surgical History Diabetic: Yes -: seizures -: afib -: iddm -: hypertension -: hyperlipidemia -: chf -: bladder infection -: cad -: neuropathy -: w?EF 20-25% -: defibrilator -: PNA -: defib/pacemaker placement x2 -: exploratory lap -: appendectomy Psychosocial/ Personal History: Patient lives patient lives at home with family - Family History Father -: Lung disease Mother -: Heart disease, Hypertension, Diabetes Sister -: Diabetes Brother -: Diabetes, Kidney disease - Social History Smoking Status: Never smoker Alcohol use: No CD- Drugs: No Caffeine use: No Place of Residence: Home Review of Systems 10-point ROS is otherwise unremarkable General: Weakness Cardiovascular: As per HPI Physical Examination - Physical Exam General: Alert, Oriented x3 HEENT: Atraumatic, PERRLA, Other (Mucous membranes pale), EOMI, Sclerae nonicteric Neck: Supple, 2+ carotid pulse no bruit, No LAD, Without JVD or thyroid abnormality Respiratory: Clear to auscultation bilaterally, Normal air movement Cardiovascular: Regular rate/rhythm, Normal S1 S2 Gastrointestinal: Normal bowel sounds, No tenderness Musculoskeletal: No tenderness Integumentary: No rashes Neurological: Normal speech, Normal strength at 5/5 x4 extr, Normal tone, Normal affect - Studies Laboratory Data (last 24 hrs) 03/10/21 21:44: PT 11.0, INR 0.96 03/10/21 21:44: WBC 8.60, Hgb 7.8 L, Hct 23.6 L, Plt Count 155 03/10/21 21:44: Sodium 139, Potassium 4.4, BUN 32 H, Creatinine 2.09 H, Glucose 237 H, Magnesium 2.2, Total Bilirubin 0.2, AST 33, ALT 35, Alkaline Phosphatase 142 H Assessment and Plan Hospital Course: Patient presented after pacemaker defibrillator fired. Patient with underlying chronic systolic heart failure with ejection fraction of 23%. Other medical problems include atrial fibrillation on chronic anticoagulation therapy, chronic kidney disease, diabetes, hypertension, hyperlipidemia, seizure disorder. Patient was admitted for further evaluation. Pacemaker was interrogated. Troponin was elevated as expected. Case discussed in detail with cardiology. Patient is seen by cardiology at [facility]. Cardiology recommends increasing metoprolol at discharge. There was some consideration of placing her on amiodarone but since the patient is taking Dilantin this was not recommended. I was able to discuss in detail with her program management analyst at [facility]. Patient with history of cardiac ablation. Patient was on amiodarone in the past. Cardiology agrees with current cardiology at this time to increase metoprolol. It appears that when she was recently admitted to [facility] they had made changes to her medication. This may be the likely cause of her pacemaker defibrillator firing. Therefore at discharge patient will continue with metoprolol XL 50 mg 1 pill twice daily. Recommend to monitor blood pressure daily. Further adjustment in medication may be required. This can be done with the help of her program management analyst. Patient will follow-up with cardiology early next week to further address and monitor. Patient with systolic congestive heart failure. Ejection fraction around 23%. At discharge the patient will continue with her current medications of m etoprolol XL 50 mg 1 pill twice daily, Lasix 40 mg 1 pill twice daily, and Eliquis 5 mg 1 pill twice daily. Recommend to continue 1500 cc/day fluid restriction and low-salt diet. Further adjustment can be done by her program management analyst. Patient with atrial fibrillation on chronic anticoagulation therapy. As per her program management analyst, patient had cardiac ablation in the recent past. She did prior use amiodarone. This has been discontinued. Patient remained stable on current medication. At discharge she will continue with above recommendations of metoprolol XL 50 mg 1 pill twice daily and Eliquis 5 mg 1 pill twice daily. Patient with chronic renal disease stage IV. Overall stable. Recommend follow- up with her lepidopterist as an outpatient. Case discussed with nephrology. Recommend to recheck labBMP in 1 to 2 weeks to monitor progress. No further use of nonsteroidal anti-inflammatories. Future medications may need to be renally dosed. Patient with diabetes mellitus type 2. Patient will continue with her current regimen NPH 20 units subcu twice daily and Humalog as directed. Recommend to maintain blood sugar less than 140 fasting and less than 200 after meals. Recommend to recheck hemoglobin A1c of 3 months to monitor progress. Further adjustment can be done by her PCP. Follow-up with PCP to further address Patient with hypertension. Prior to admission, medications have been adjusted. Blood pressure was elevated upon admission. As mentioned above metoprolol will be increased to 50 mg 1 pill twice daily. At discharge she will continue with metoprolol XL 50 mg 1 pill twice daily, Norvasc 5 mg daily, and hydralazine 50 mg 1 pill 3 times a day. Recommend to maintain blood pressure less than 130/80. Hold medication if blood pressure systolic less than 110. Further adjustment can be done by her PCP or cardiology. Follow-up with cardiology next week to further address. Patient with hyperlipidemia. At discharge we will continue with Lipitor 40 mg daily. Patient with seizure disorder. At discharge she will continue with her medication including Dilantin 200 mg at bedtime and 100 mg daily. Patient had recent blood loss. She was seen at [facility] recently. She was evaluated there. She was told that she had a polyp and that was the likely cause of her bleeding. Hemoglobin remained stable. Patient may continue with multivitamin daily. Patient with UTI. Patient with history of UTI in the past. At discharge patient may continue with Augmentin 500 mg twice daily for 7 days. UTI prevention provided. PCP can follow-up on the urine culture results. Medication adjusted per renal function. Vital Signs/Physical Exam: Temp Pulse Resp BP Pulse Ox 98.3 F 89 19 172/78 H 98 03/11/21 09:14 03/11/21 09:51 03/11/21 09:14 03/11/21 09:51 03/11/21 08:00 General: Alert, In no apparent distress, Oriented x3 HEENT: Atraumatic Respiratory: Clear to auscultation bilaterally, Normal air movement Cardiovascular: Normal pulses, Regular rate/rhythm Gastrointestinal: Normal bowel sounds, No tenderness, No masses, No rebound, No guarding Musculoskeletal: No erythema, No tenderness, No warmth Integumentary: No tenderness/swelling, No erythema, No warmth, No cyanosis Neurological: Normal speech, Normal strength at 5/5 x4 extr, Normal tone, Normal affect Laboratory Data at Discharge: WBC 8.90 K/uL (4.3-10.9) 03/11/21 02:24 Hgb 9.8 g/dL (12.0-15.0) L 03/11/21 02:24 Hct 29.8 % (36.0-45.0) L D 03/11/21 02:24 Plt Count 244 K/uL (152-406) D 03/11/21 02:24 PT 11.0 SECONDS (9.5-12.5) 03/10/21 21:44 INR 0.96 03/10/21 21:44 Sodium 140 mmol/L (136-145) 03/11/21 02:24 Potassium 4.2 mmol/L (3.5-5.1) 03/11/21 02:24 BUN 32 mg/dL (7-18) H 03/11/21 02:24 Creatinine 2.05 mg/dL (0.55-1.3) H 03/11/21 02:24 Glucose 202 mg/dL (74-106) H 03/11/21 02:24 Uric Acid 6.8 mg/dL (2.6-6.0) H 03/11/21 02:24 Magnesium 2.4 mg/dL (1.8-2.4) 03/11/21 02:24 Total Bilirubin 0.1 mg/dL (0.2-1.0) L 03/11/21 02:24 AST 31 U/L (15-37) 03/11/21 02:24 ALT 31 U/L (12-78) 03/11/21 02:24 Alkaline Phosphatase 132 U/L (45-117) H 03/11/21 02:24 Home Medications: Atorvastatin Calcium 40 mg PO BEDTIME 08/27/15 PHENYTOIN ER Cap [Dilantin ER Cap*] 200 mg PO BEDTIME 08/27/15 Furosemide [Lasix*] 40 mg PO BID 04/07/16 Phenytoin Sodium Extended [Dilantin] 100 mg PO DAILY 07/16/19 Amlodipine [Norvasc*] 5 mg PO DAILY 03/11/21 Amox/Clavulanate [Augmentin 500-125 mg Tab*] 500 mg PO BID #14 tab 03/11/21 Apixaban [Eliquis *] 5 mg PO BID 03/11/21 Hydralazine HCl [Apresoline] 50 mg PO Q8H 03/11/21 Insulin NPH Human Isophane [Humulin N] 20 unit SQ BID 03/11/21 Insulin Regular, Human [Humulin R U-500 Kwikpen] 10 unit SQ TID 03/11/21 Metoprolol Succinate [Toprol Xl*] 50 mg PO BID 6AM 6PM #60 tab 03/11/21 Pantoprazole [Protonix Tab*] 40 mg PO DAILY 03/11/21 New Medications: Amox/Clavulanate [Augmentin 500-125 mg Tab*] 500 mg PO BID #14 tab Metoprolol Succinate [Toprol Xl*] 50 mg PO BID 6AM 6PM #60 tab Physician Discharge Instructions: Patient presented after pacemaker defibrillator fired. Patient with underlying chronic systolic heart failure with ejection fraction of 23%. Other medical problems include atrial fibrillation on chronic anticoagulation therapy, chronic kidney disease, diabetes, hypertension, hyperlipidemia, seizure disorder. Patient was admitted for further evaluation. Pacemaker was interrogated. Troponin was elevated as expected. Case discussed in detail with cardiology. Patient is seen by cardiology at [facility]. Cardiology recommends increasing metoprolol at discharge. There was some consideration of placing her on amiodarone but since the patient is taking Dilantin this was not recommended. I was able to discuss in detail with her program management analyst at [facility]. Patient with history of cardiac ablation. Patient was on amiodarone in the past. Cardiology agrees with current cardiology at this time to increase metoprolol. It appears that when she was recently admitted to [facility] they had made changes to her medication. This may be the likely cause of her pacemaker defibrillator firing. Therefore at discharge patient will continue with metoprolol XL 50 mg 1 pill twice daily. Recommend to monitor blood pressure daily. Further adjustment in medication may be required. This can be done with the help of her program management analyst. Patient will follow-up with cardiology early next week to further address and monitor. Patient with systolic congestive heart failure. Ejection fraction around 23%. At discharge the patient will continue with her current medications of metoprolol XL 50 mg 1 pill twice daily, Lasix 40 mg 1 pill twice daily, and Eliquis 5 mg 1 pill twice daily. Recommend to continue 1500 cc/day fluid restriction and low-salt diet. Further adjustment can be done by her program management analyst. Patient with atrial fibrillation on chronic anticoagulation therapy. As per her program management analyst, patient had cardiac ablation in the recent past. She did prior use amiodarone. This has been discontinued. Patient remained stable on current medication. At discharge she will continue with above recommendations of metoprolol XL 50 mg 1 pill twice daily and Eliquis 5 mg 1 pill twice daily. Patient with chronic renal disease stage IV. Overall stable. Recommend follow- up with her lepidopterist as an outpatient. Case discussed with nephrology. Recommend to recheck labBMP in 1 to 2 weeks to monitor progress. No further use of nonsteroidal anti-inflammatories. Future medications may need to be renally dosed. Patient with diabetes mellitus type 2. Patient will continue with her current regimen NPH 20 units subcu twice daily and Humalog as directed. Recommend to maintain blood sugar less than 140 fasting and less than 200 after meals. Recommend to recheck hemoglobin A1c of 3 months to monitor progress. Further adjustment can be done by her PCP. Follow-up with PCP to further address Patient with hypertension. Prior to admission, medications have been adjusted. Blood pressure was elevated upon admission. As mentioned above metoprolol will be increased to 50 mg 1 pill twice daily. At discharge she will continue with metoprolol XL 50 mg 1 pill twice daily, Norvasc 5 mg daily, and hydralazine 50 mg 1 pill 3 times a day. Recommend to maintain blood pressure less than 130/80. Hold medication if blood pressure systolic less than 110. Further adjustment can be done by her PCP or cardiology. Follow-up with cardiology next week to further address. Patient with hyperlipidemia. At discharge we will continue with Lipitor 40 mg daily. Patient with seizure disorder. At discharge she will continue with her medication including Dilantin 200 mg at bedtime and 100 mg daily. Patient had recent blood loss. She was seen at [facility] recently. She was evaluated there. She was told that she had a polyp and that was the likely cause of her bleeding. Hemoglobin remained stable. Patient may continue with multivitamin daily. Patient with UTI. Patient with history of UTI in the past. At discharge patient may continue with Augmentin 500 mg twice daily for 7 days. UTI prevention provided. PCP can follow-up on the urine culture results. Medication adjusted per renal function. Diet: ADA Activity: Ad royal Followup: NONE,NONE [Primary Care Provider] - Time spent managing pt's care (in minutes): 55
--- NOTE | 2021-03-11 12:51 | CON ---
Date of Consultation: 03/11/[address] Ritter for AICD discharge. The patient was admitted on 03/10/2021. I saw the patien t on 03/11/2021. History Of Present Illness: Ms. Simpson is a 76-year-old, has a history of congestive heart failure, f ollows up with Dr. Heath in [place]. She has a history of defibrillator. Last ejection fraction was 35%. Has a history of renal insufficiency, anemia, and came in after multiple AICD shocks. She is a do not resuscitate. She did not have any syncope and did not have any chest pain or any symptoms pr ior to her shock. Investigation showed that the shock occurred because of nonsustained ventricular t achycardia. She is presently stable and having no symptoms. Past Medical History: Positive for congestive heart failure, AICD, diabetes, paroxysmal atrial fibri llation, occasional bradycardia, anxiety, dyslipidemia, hypertension, coronary artery disease, neurop athy, and seizures. Medications: At home include digoxin, Lipitor, Lasix, insulin, metoprolol 25 b.i.d., Dilantin, Xarel to, and Entresto 24/26 mg half a tablet b.i.d. Physical Examination: Vital signs: Stable, afebrile. Sinus rhythm. HEENT: Negative. Neck: Supple. No bruit. Chest: Clear. Cardiac: Revealed a regular rhythm and rate. No murmurs, gallops, or rubs. Abdomen: Benign. Extremities: Revealed no clubbing, cyanosis, or edema. Diagnostic Data: Listed earlier. Impression And Plan: AICD secondary to nonsustained ventricular tachycardia. In patient with docume nted congestive heart failure. I think we should consider using amiodarone instead of the metoprolol . We will check with pharmacy regarding interaction of amiodarone and Dilantin. Continue Xarelto. Continue Entresto. Continue Lasix, digoxin, and Lipitor and I think patient should be on 400 mg b.i. d. of amiodarone for 1 week and then 200 mg daily, and she needs to see Dr. Heath as soon as possible. Her magnesium and potassium are normal. I will discuss the case further with Dr. Ritter. PRAVEEN/CAMERON Voice ID: [id number] Report ID: [id number]
[2021-03-11 13:18] VITALS: BP 143/67; TEMP 97.2
[2021-03-11] MEDS ORDERED: ATORVASTATIN 40 MG TAB PO SCH (21:00)
[2021-03-11] MEDS ORDERED: PHENYTOIN ER 100 MG CAP PO SCH (21:00)
[2021-03-11] MEDS ORDERED: AMOX/K CLAV 500 MG TAB PO SCH (21:00)
[2021-03-11] MEDS ORDERED: SACUBITRIL/VALSARTAN 24/26 MG TAB PO SCH (21:00)
[2021-03-12] MEDS ORDERED: RIVAROXABAN 15 MG TABLET PO SCH (09:00)
[2021-03-12] MEDS ORDERED: FUROSEMIDE 40 MG TABLET PO SCH (09:00)
[2021-03-12] MEDS ORDERED: DIGOXIN 0.125 MG TABLET PO SCH (09:00)
[2021-03-12] MEDS ORDERED: PHENYTOIN ER 100 MG CAP PO SCH (09:00)
--- NOTE | 2021-03-12 15:17 | EKG ---
Test Date: 2021-03-10 Test Time: 21:06:45 Employment Clerk: ALL MEASUREMENT RESULTS: Intervals: Rate: 107 WA: 94 QRSD: 142 QT: 426 QTc: 568 [place]: P: 61 WA: 94 QRS: -69 T: 90 INTERPRETIVE STATEMENTS: Sinus tachycardia with short WA with frequent ventricular-paced complexes Left axis deviation Left ventricular hypertrophy with QRS widening and repolarization abnormality Cannot rule out Anterior infarct, age undetermined Abnormal ECG Compared to ECG 05/31/2020 20:59:31 Short WA interval now present Left-axis deviation now present Left ventricular hypertrophy now present Early repolarization now present Myocardial infarct finding now present Atrial-sensed ventricular-paced complex(es) or rhythm no longer present Electronically Signed On 03-12-21 15:14:50 HAND CEMENTER by Ross Graf
== END 2021-03-11 15:00 | disposition home or self-care (01) ==
LOC: ER 21:00 → ERHOLD 23:26 → INTOOBSV 23:26 → 2ND 03-11 02:15
PROVIDERS: ADMIT Family Medicine; ATTEND Family Medicine
DX: I47.2 Ventricular tachycardia (principal); I13.0 Hypertensive heart and chronic kidney disease with heart failure and stage 1 through stage 4 chronic kidney disease, or unspecified chronic kidney disease; E11.22 Type 2 diabetes mellitus with diabetic chronic kidney disease; I50.22 Chronic systolic (congestive) heart failure; N18.4 Chronic kidney disease, stage 4 (severe); N17.9 Acute kidney failure, unspecified; D63.1 Anemia in chronic kidney disease; I48.0 Paroxysmal atrial fibrillation; E78.5 Hyperlipidemia, unspecified; G40.909 Epilepsy, unspecified, not intractable, without status epilepticus; N39.0 Urinary tract infection, site not specified; I25.10 Atherosclerotic heart disease of native coronary artery without angina pectoris; D62 Acute posthemorrhagic anemia; E11.40 Type 2 diabetes mellitus with diabetic neuropathy, unspecified; F41.9 Anxiety disorder, unspecified; Z66 Do not resuscitate; Z79.01 Long term (current) use of anticoagulants; Z79.4 Long term (current) use of insulin; Z20.822 Contact with and (suspected) exposure to COVID-19; Z82.49 Family history of ischemic heart disease and other diseases of the circulatory system; Z83.3 Family history of diabetes mellitus; Z84.1 Family history of disorders of kidney and ureter
CPT/HCPCS: 93005; 87088; 85025 ×2; 87086; 80048; 36415; 83735 ×2; 82550; 85610; 82947; 80076; 84550; 80185; 87077; 87186; 84484 ×3; 82728; 83540; 80053; 83880; 84466; 71045; 96375; 96374; 99285; U0003; J1940; G0378 ×2; 81003; 81015

== ENCOUNTER 2021-03-20 19:27 | Emergency (ER) | payer OTHER ==
--- OUTSIDE RECORDS SUMMARY | 2021-03-20 19:31 | XMS REPORT | Continuity of Care Document ---
:1945 Author Organization [facility] t Address [address] [place] [address] Care Team Providers Name Role Phone Lauren Lou Primary Care Physician Lily BURK Attending Clinician Unavailable Juan Anderson DO Attending Clinician PHUONG Attending Clinician Unavailable Willian SQUIRES, Tayler Attending Clinician Jazmyne BURK, A Attending Clinician Unavailable Payers Payer Name Policy Type Policy Number Effective Date Expiration Date S ource Advance Directives Directive Decision Effective Termination Comments Source Date Date Healthcare Agents on N/A [facility] FileNameRelationshipHealthcare [facility] Agent Medical RelationshipCommunicationGraciela Branch NegreteChildHealth Care [phone] (Mobile) (Home)[email or web address] nichelle AminMountrail [facility] Health Care [phone] (Mobile) [email or web address] Condition Condition Condition Status Onset Resolution Last Treating Co mments Source Name Details Category Date Date Treatment Clinician Date V-tach V-tach Disease Active Univers 1-22 ity of 00:00: [place] 00 Medical Branch GI bleed GI bleed Disease Active Unive rs 1-17 ity of 00:00: [place] [facility] Rectal Rectal Disease Active Overview: Univer s bleeding bleeding 1-17 Formattin ity of 00:00: g of this note Medical might be Branch different from the original. Added automatic ally from request for surgery [id number] Refusal of Refusal of Disease Active 2020-02 U nivers blood blood 2-13 [place] of transfusio [place] 00 Medical patient is patient is Br zenon Simpson's Gnosticist Witness Osteopenia Osteopenia Disease Active 2020-02 U nivers 1-09 ity of 00:00: [place] 00 Medical Branch UTI UTI Disease Active 2019-02 Univers (urinary (urinary 0-08 ity of tract tract 00:00: [place] infection) infection) 00 Me dical Branch Chronic Chronic Disease Active 2019-02 [...] f nodules nodules 00:00: g of this note Medical might [...] 00 Medical Branch Orthostati Orthostati Disease Active 2018-02 U nivers c c 0-21 ity of [...] 00 Medical Branch Degenerati Degenerati Disease Active 2019 U paresh ve ve 1-07 ity of arthritis arthritis 00:00[place] lumbar of lumbar 00 Medi sandra spine spine Branch 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 Bosniak Type [address] Hyperkalem Hyperkalem Disease Active U nivers ia ia 5- ity of 00:00: [place] [facility] History of History of Disease Active U nivers colon colon 5-03 ity of polyps polyps 00:00: [address] Branch History of History of Disease Active U nivers pulmonary pulmonary 2-17 ity of embolism embolism 00:00: [place] [facility] Branch ICD ICD Disease Active Univers (implantab (implantab 2-17 it y of le le 00:00: [place] cardiovert cardiovert 00 Me dical er-defibri er-defibri Br anch llator) in llator) in place place Atrial Atrial Disease Active Univers fibrillati fibrillati 1-16 it y of on on 00:00: [address] Branch Syncope Syncope Disease Active Univers 1-15 ity of 00:: [place] [facility] Branch DM DM Disease Active Univers (diabetes (diabetes 8-31 ity of mellitus), mellitus), [place] type 2 type 2 00 Medical with renal with renal Br anch complicati complicati ons ons Anxiety Anxiety Disease Active Univers ity of [place] [facility] CKD CKD Disease Active Univers (chronic (chronic ity of kidney kidney [place] disease) disease) Medica l stage 4, stage 4, Branch GFR 15-29 GFR 15-29 ml/min ml/min Epilepsy Epilepsy Disease Active Unive rs ity of [place] [facility] Esophageal Esophageal Disease Active U nivers reflux reflux ity of [place] [facility] HLD HLD Disease Active Univers (hyperlipi (hyperlipi it y of demia) demia) [place] [facility] HTN HTN Disease Active Univers (hypertens (hypertens it y of ion) ion) [place] [facility] 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 [place] [facility] ASHLYN ASHLYN Disease Active Univers (obstructi (obstructi it y of ve sleep ve sleep [place] apnea) apnea) Medical [place] Allergies, Adverse Reactions, Alerts Allergy Allergy Status [...] f Clavulan nce 00:00: [place] ate 00 Medical Branch AMOXICIL DRUG Active Low Other-Cmnt 2020-02 Univ ers RYDER-POT 2-13 ity of CLAVULAN 00:00: [place] ATE 00 Medical Branch CIPROFLO DRUG Active Low Other-Cmnt 2020-02 Univ ers XACIN INGREDI 2-13 ity of 00:00: [place] 00 [facility] Social History Social Habit Start Date Stop Date Quantity Comments Source Exposure to Not sure [facility] SARS-CoV-2 [facility] (event) Branch Alcohol intake 2021-03-18 2021-03-18 Current University of 00:00:00 00:00:00 non-drinker of [facility] alcohol Branch (finding) Tobacco Comment 2021-03-07 2021-03-07 exposed to "a Univer sity of 00:00:00 00:00:00 lot" of passive [place] Med ical smoke from Branch Tobacco use and 2019-12-09 2019-12-09 Never used Universit y of exposure 00:00:00 00:00:00 [place] [facility] Sex [birth year] Universit y of 00:00:00 00:00:00 [place] [facility] Smoking Status Start Date Stop Date Source Never smoker [facility] Medications Ordered Filled Start Stop Current Ordering Indication Dosage Frequency Signature Comments Components Source Medication Medication Date Date Medication? Clinician (SIG) Name Name NaCl 0.9% 2021- No 1000mL at 999 Uni vers (NS) bolus 03-19 01-29 mL/hr, ity of infusion 01:00: 02:00 1,000 mL, Bernabe as 1,000 mL 00 :00 IV Medical Infusion, Branch ONCE, 1 dose, On Sun03/18/21 at 1900, JACQUI insulin NPH 2021- Yes [id number] inject 15 Univers (HUMULIN N 03-18 03-26 Units ity of NPH U-100 00:00: 04:59 [place]ULIN[place] 00 :00 skin every Medic al 100 unit/mL morning Branc h injection for 28 days, THEN 11 Units every evening for 28 days. insulin NPH 2021- Yes [id number] inject 15 Univers (HUMULIN N 03-18 03-26 Units ity of NPH U-100 00:00: 04:59 [place] INSULIN[place] 00 :00 skin every Medic al 100 unit/mL morning Branc h injection for 28 days, THEN 11 Units every evening for 28 days. furosemide Yes [id number] 20mg Take 1 Univers 20 mg 1-27 tablet by ity of tablet 00:00: mouth [place] 00 daily. Medical Branch insulin NPH Yes [id number] 11U inject 11 Univers (NOVOLIN N 1-27 Units ity of NPH U-100 00:00: under the Bernabe as INSULIN) 00 skin every Medic al 100 unit/mL evening. Bran ch injection levETIRAcet Yes [id number] 500mg Take 1 Univers am 500 mg 1-27 tablet by ity o f tablet 00:00: mouth 2 [place] 00 (two) Medical times Branch daily. furosemide Yes [id number] 20mg Take 1 Univers 20 mg 1-27 tablet by ity of tablet 00:00: mouth [place] 00 daily. Medical Branch insulin NPH Yes [id number] 11U inject 11 Univers (NOVOLIN N 1-27 Units ity of NPH U-100 00:00: under the Bernabe as INSULIN) 00 skin every Medic al 100 unit/mL evening. Bran ch injection levETIRAcet Yes [id number] 500mg Take 1 Univers am 500 mg 1-27 tablet by ity o f tablet 00:00: mouth 2 [place] 00 (two) Medical times [place] daily. phenytoin 2021- Yes [id number] 200mg Take 2 Univers Extended 03-17-16 capsules ity of 100 mg 00:00: 05:59 by mouth [place] capsule 00 :00 at bedtime Medica l for 12 Branch days, then Take 1 capsule by mouth daily for 14 days. phenytoin 2021- Yes [id number] 200mg Take 2 Univers Extended 03-17-16 capsules ity of 100 mg 00:00: 05:59 by mouth [place] capsule 00 :00 at bedtime Medica l for 12 Branch days, then Take 1 capsule by mouth daily for 14 days. amoxicillin 2021- No Unive rs -pot 03-16 ity of clavulanate 00:00: 00:00 [place] 500 mg 00 :00 Medical 500-125 mg Branch tablet pantoprazol Yes [id number] 40mg Take 1 Univers e 40 mg EC 1-21 tablet by ity of tablet 00:00: mouth [place] 00 daily. Medical Branch pantoprazol Yes [id number] 40mg Take 1 Univers e 40 mg EC 1-21 tablet by ity of tablet 00:00: mouth [place] 00 daily. Medical Branch metoprolol Yes Univers succinate 1-21 ity of XL 50 mg 24 00:00: [place] hr tablet 00 Medical Branch pantoprazol Yes [id number] 40mg Take 1 Univers e 40 mg EC 1-21 tablet by ity of tablet 00:00: mouth [place] 00 daily. Medical Branch metoprolol Yes Univers succinate 1-21 ity of XL 50 mg 24 00:00: [place] hr tablet 00 Medical Branch amLODIPine 2021- No [id number] 5mg Take 1 Univers 5 mg tablet 03-10 tablet by it y of 00:00: 00:00 mouth [place] 00 :00 daily. Medical Branch metoprolol 2021- No [id number] 25mg Take 1 Univers succinate 03-10 tablet by ity of XL 25 mg 24 00:00: 00:00 mouth 2 [place] hr tablet 00 :00 (two) Medical [facility] daily for 14 days. apixaban 2020-02 Yes 5mg Take 1 Univers (ELIQUIS) 5 2-14 tablet by ity of mg tablet 00:00: mouth 2 [place] 00 (two) Medical times Branch daily. atorvastati 2020-02 Yes [id number] 40mg Take 1 Univers n 40 mg 2-14 tablet by ity of tablet 00:00: mouth at [place] 00 bedtime. Medical Branch insulin 2020-02 Yes 8U inject 8 Univer s regular 2-14 Units ity of human 00:00: under the [place] (NOVOLIN R 00 skin Medical REGULAR daily. Branch U-100 Daily at [facility]) 100 noon unit/mL injection apixaban 2020-02 Yes 5mg Take 1 Univers (ELIQUIS) 5 2-14 tablet by ity of mg tablet 00:00: mouth 2 [place] 00 (two) Medical times [place] daily. atorvastati 2020-02 Yes [id number] 40mg Take 1 Univers n 40 mg 2-14 tablet by ity of tablet 00:00: mouth at [place] 00 bedtime. Medical Branch insulin 2020-02 Yes 8U inject 8 Univer s regular 2-14 Units ity of human 00:00: under the [place] (NOVOLIN R 00 skin Medical REGULAR daily. Branch U-100 Daily at [facility]) 100 noon unit/mL injection apixaban 2020-02 Yes 5mg Take 1 Univers (ELIQUIS) 5 2-14 tablet by ity of mg tablet 00:00: mouth 2 [place] 00 (two) Medical times Branch daily. atorvastati 2020-02 Yes [id number] 40mg Take 1 Univers n 40 mg 2-14 tablet by ity of tablet 00:00: mouth at [place] 00 bedtime. Medical Branch insulin 2020-02 Yes 8U inject 8 Univer s regular 2-14 Units ity of human 00:00: under the [place] (NOVOLIN R 00 skin Medical REGULAR daily. Branch U-100 Daily at [facility]) 100 noon unit/mL injection insulin NPH 2020-02- No [id number] 20U inject 20 Univers (NOVOLIN N 2-14 01-27 Units ity of NPH U-100 00:00: [place]:00 [place] INSULIN[place] 00 :00 skin every Medic al 100 unit/mL morning Branc h injection and evening. PHENYTOIN 2021- No [id number] TAKE 1 Univers EXTENDED 8-07 01-27 CAPSULE BY ity of 100 mg 00:00: 00:00 MOUTH [place] capsule 00 :00 EVERY Medical MORNING Branch AND 2 CAPSULES IN THE EVENING furosemide 2019-02- No [id number] 40mg Take 1 Univers 40 mg 03-17 tablet by ity of tablet 00:00: 00:00 mouth 2 [place] 00 :00 (two) Medical times Branch daily. Blood-Gluco Yes [...] Immunizations Ordered Filled Immunization Date Status Comments Sour e Immunization Name Name SARS-COV-2 COVID-19 2021-01-31 Completed Unive rsity of MODERNA BOOSTER 00:00:00 [facility] ical VACCINE Branch SARS-COV-2 COVID-19 2021-01-31 Completed Unive rsity of MODERNA BOOSTER 00:00:00 [place] Med ical VACCINE Branch SARS-COV-2 COVID-19 2021-01-31 Completed Unive rsity of MODERNA BOOSTER 00:00:00 [place] Med ical VACCINE Branch Influenza Virus 2020-12-03 [...] of MODERNA VACCINE 00:00:00 [place] [facility] ical Branch SARS-COV-2 COVID-19 2020-04-26 Completed Unive rsity of MODERNA VACCINE 00:00:00 [place] Med ical Branch SARS-COV-2 COVID-19 2020-04-26 Completed Unive rsity of MODERNA VACCINE 00:00:00 [place] [facility] ical Branch SARS-COV-2 COVID-19 2020-03-29 Completed Unive rsity of MODERNA VACCINE 00:00:00 [place] [facility] ical Branch SARS-COV-2 COVID-19 2020-03-29 Completed Unive rsity of MODERNA VACCINE 00:00:00 [place] Med ical Branch SARS-COV-2 COVID-19 2020-03-29 Completed Unive rsity of MODERNA VACCINE 00:00:00 [place] Med ical Branch Pneumococcal 13 2019-12-19 Completed Universit y of Conjugate, PCV13 00:00:00 [facility] dical (Prevnar 13) Branch Pneumococcal 13 2019-12-19 Completed Universit y of Conjugate, PCV13 00:00:00 [facility] dical (Prevnar 13) Branch Pneumococcal 13 2019-12-19 Completed Universit y of Conjugate, PCV13 00:00:00 [place] Me dical (Prevnar 13) Branch Influenza Virus 2019-11-22 [...] IM, Preserv and ABX Branc h Free [age] YRS HEP B, Adult Dosage 2018-03-25 Completed Unive rsity of 00:00:00 [place] [facility] HEP B, Adult Dosage 2018-03-25 Completed Unive rsity of 00:00:00 [place] [facility] HEP B, Adult Dosage 2018-03-25 Completed Unive rsity of 00:00:00 [place] [facility] HEP B, Adult Dosage 2017-10-10 Completed Unive rsity of 00:00:00 [place] [facility] HEP B, Adult Dosage 2017-10-10 Completed Unive rsity of 00:00:00 [place] [facility] HEP B, Adult Dosage 2017-10-10 Completed Unive rsity of 00:00:00 [place] [facility] HEP B, Adult Dosage 2017-09-05 Completed Unive rsity of 00:00:00 [place] [facility] HEP B, Adult Dosage 2017-09-05 Completed Unive rsity of 00:00:00 [place] [facility] HEP B, Adult Dosage 2017-09-05 Completed Unive rsity of 00:00:00 [place] [facility] Pneumococcal 13 2015-02-19 Completed Universit y of Conjugate, PCV13 00:00:00 [facility] dical (Prevnar 13) Branch Pneumococcal 13 2015-02-19 Completed Universit y of Conjugate, PCV13 00:00:00 [facility] dical (Prevnar 13) Branch Pneumococcal 13 2015-02-19 Completed Universit y of Conjugate, PCV13 00:00:00 [facility] dical (Prevnar 13) Branch Pneumococcal 2011-02-19 Completed University o f Polysaccharide, 00:00:00 [facility] ica PPSV23 (PNEUMOVAX) Branch Pneumococcal 2011-02-19 Completed [place] o f Polysaccharide, 00:00:00 [place] Med ical PPSV23 (PNEUMOVAX) Branch Pneumococcal 2011-02-19 Completed [place] o f Polysaccharide, 00:00:00 [facility] ical PPSV23 (PNEUMOVAX) Branch Vital Signs Vital Name Observation Time Observation Value Comments Source Systolic blood 2021-03-19 04:00:00 157 mm[Hg] Univer sity of pressure [facility] Diastolic blood 2021-03-19 04:00:00 58 [facility]Hg[facility] 2021-03-19 04:00:00 60 /min [facility] Respiratory rate 2021-03-19 04:00:00 18 /min [facility] Oxygen saturation in 2021-03-19 04:00:00 98 /min [facility] Arterial blood by [facility] Pulse oximetry [place] Body temperature 2021-03-18 22:45:00 36.39 Lizz [facility] Body weight 2021-03-18 22:45:00 87.091 kg [facility] BMI 2021-03-18 22:45:00 37.50 kg/m2 [facility] Procedures Procedure Date / Time Performed Performing Clinician Sour e URINALYSIS 2021-03-19 02:30:00 Ananya Anderson [facility] TROPONIN I 2021-03-19 00:44:00 Ananya Anderson [facility] COMP. METABOLIC PANEL 2021-03-19 00:44:00 Ananya Anderson [facility] ([id number]) [facility] CBC WITH DIFF 2021-03-19 00:44:00 Ananya Anderson [facility] CONSENT/REFUSAL FOR 2021-03-18 22:34:00 Doctor Unassigned, No Un [facility] DIAGNOSIS AND Name Medical [place] TREATMENT Plan of Care Planned Activity Planned Date Details Comments Source Medication 2021-03-30 phenytoin Extended [facility] 00:00:00 100 mg capsule [code Medical Branch = 001225] Medication 2021-03-30 phenytoin Extended [facility] 00:00:00 100 mg capsule [code Medical Branch = 756584] Encounters Start End Encounter Admission Attending Care Care Encounter Source Date/Time Date/Time Type Type Clinicians Facility Department ID 2021-03-20 2021-03-20 Nurse YANA Bautista [id number] Univers 00:00:00 00:00:00 Triage Cielo RENEE [id number] it y of [facility] [id number] Bern[place] as [id number] [facility] 019 Branch 2021-03-18 2021-03-18 Emergency [facility] [id number] Univers 17:02:00 22:45:00 [id number] [id number] [facility] 084 Branch 2021-03-18 2021-03-18 [facility] [id number] Univers 15:00:00 16:15:48 JENNIE [facility] 2021-03-16 2021-03-16 Case ATUL Dorsey [id number] Univers 00:00:00 00:00:00 Management [facility] [id number] ity [facility] [address] [id number] [place] [id number] [facility] 414 Branch 2020-05-20 2020-05-20 Telephone YANA Samano [id number] 00:00:00 00:00:00 Teri Lauryn THELMA [id number] [facility] [id number] Results Test Description Test Time Test Comments Results Result Comments Source TROPONIN I 2021-03-19 01:31:04 Test Item Value Reference Range Interpretation Comme nts TROPONIN I (test code = 0.017 ng/mL See_Comment [Au tomated message] The [id number]) system which ge nerated this result tra nsmitted reference range : <=0.034. The reference r beltran was not used to int erpret this result as normal/abnormal . SEN (test code = SEN) Reference (Normal) Range (defined by the 99th percentile reference [...] biotin. Lab Interpretation Normal (test code = 29821-4) [facility]. METABOLIC PANEL ([id number])2021-03-19 01:19:41 Test Item Value Reference Range Interpretation Comments NA (test code = 138 mmol/L 135-145 6421158654) K (test code = 4.6 mmol/L 3.5-5.0 5653844505) CL (test code = 105 mmol/L 98-108 6059886068) CO2 TOTAL (test code = 26 mmol/L 23-31 2105442650) AGAP (test code = 2-16 0177933422) BUN (test code = 44 mg/dL 7-23 H 5892379629) GLUCOSE (test code = 229 mg/dL 70-110 H 9228255707) CREATININE (test code = 1.91 mg/dL 0.50-1.04 H 3669630198) TOTAL BILI (test code = 0.3 mg/dL 0.1-1.0 9101716756) CALCIUM (test code = 8.8 mg/dL 8.6-10.6 8757760918) T PROTEIN (test code = 7.4 g/dL 6.3-8.2 2553754228) ALBUMIN (test code = 4.2 g/dL 3.5-5.0 0094729464) ALK PHOS (test code = 126 U/L 34-122 H 5202711615) ALTv (test code = 23 U/L 5-35 1742-6) AST(SGOT) (test code = 30 U/L 13-40 0614704339) eGFR (test code = mL/min/1.73m2 5267673707) SEN (test code = SEN) Association of [...] tests). Lab Interpretation Abnormal (test code = 63969-4) [facility] WITH [id number] 01:08:58 Test Item Value Reference Range Interpretation Comments WBC (test code = See_Comment [Automated 8532-2) message] The sy stem which generated this result transmitted reference range : 4.30 - 11.10 10*3/?L. The reference range was not used to interpret this result as normal/abnormal . RBC (test code = See_Comment L [Automated 202-8) message] The sy stem which generated this result transmitted reference range : 3.93 - 5.25 10*6/?L. The reference range was not used to interpret this result as normal/abnormal . HGB (test code = 11.4 g/dL 11.6-15.0 L 718-7) HCT (test code = 34.9 % 35.7-45.2 L 4544-3) MCV (test code = 94.3 fL 80.6-95.5 787-2) MCH (test code = 30.8 pg 25.9-32.8 785-6) MCHC (test code = 32.7 g/dL 31.6-35.1 786-4) RDW-SD (test code = 45.4 fL 39.0-49.9 78716-3) RDW-CV (test code = 13.3 % 12.0-15.5 788-0) PLT (test code = See_Comment [Automated 777-3) message] The sy stem which generated this result transmitted reference range : 166 - 358 10*3/ ?L. The reference r beltran was not used to interpret this result as normal/abnormal . MPV (test code = 12.2 fL 9.5-12.9 09036-8) NRBC/100 WBC (test See_Comment [Automat ed code = 7454869729) message] The system which generated this result transmitted reference range : 0.0 - 10.0 /100 WBCs. The refer ence range was not u sed to interpret th is result as normal/abnormal . NRBC x10^3 (test code <0.01 See_Comment [Auto mated = 9874656840) message] The s ystem which generated this result transmitted reference range : 10*3/?L. The reference range was not used to interpret this result as normal/abnormal . GRAN MAT (NEUT) % 63.0 % (test code = 770-8) IMM GRAN % (test code 0.40 % = 7442268438) LYMPH % (test code = 26.4 % 736-9) MONO % (test code = 7.1 % 5905-5) EOS % (test code = 2.7 % 713-8) BASO % (test code = 0.4 % 706-2) GRAN MAT x10^3(ANC) 6.26 10*3/uL 1.88-7.09 (test code = 0589150331) IMM GRAN x10^3 (test 0.04 10*3/uL 0.00-0.06 code = 7528835459) LYMPH x10^3 (test code 2.63 10*3/uL 1.32-3.29 = 731-0) MONO x10^3 (test code 0.71 10*3/uL 0.33-0.92 = 742-7) EOS x10^3 (test code = 0.27 10*3/uL 0.03-0.39 711-2) BASO x10^3 (test code 0.04 10*3/uL 0.01-0.07 = 704-7) Lab Interpretation Abnormal (test code = 20358-6) [facility]
--- NOTE | 2021-03-20 20:57 | RAD REPORT ---
EXAM DESCRIPTION: RAD - Chest Single View - 03/20/2021 8:43 pm CLINICAL HISTORY: PALPITATIONS COMPARISON: Portable March 10 TECHNIQUE: AP portable chest image was obtained 03/20/2021 8:43 pm . FINDINGS: Lung volumes are low accentuating bibasilar lung markings. Overall findings in the lung fi elds are not substantially different from comparison. Pacer/defibrillator is in place. Trachea is midline. Heart and vasculature are normal. No measurable pleural effusion and no pneumothorax. No acute bony abnormality seen. No acute aortic findings suspec luis miguel. IMPRESSION: No acute cardiopulmonary process. Above detailed findings are not significantly different comparison.
--- NOTE | 2021-03-20 20:58 | RAD REPORT ---
EXAM DESCRIPTION: CT - Head Brain Wo Cont - 03/20/2021 8:45 pm CLINICAL HISTORY: DIZZINESS COMPARISON: Head Brain Wo Cont dated 06/07/2015 TECHNIQUE: Axial 5 mm thick images of the head were obtained without IV contrast. All CT scans are performed using dose optimization technique as appropriate and may include automated exposure control or mA/KV adjustment according to patient size. FINDINGS: No intracranial hemorrhage, mass, edema or shift of mid-line structures. No acute infarcti on changes seen. No abnormal extra-axial fluid collections. Mild atrophy and chronic ischemic changes are present not substantially different from 2016. Ventricles are in proportion to any volume loss. Mastoid air cells and visualized portions of the paranasal sinuses are clear. No acute bony findings. IMPRESSION: Negative non-contrast CT head examination for acute finding. Intracranial findings are not significantly different from 2016.
[2021-03-20 21:42] LABS: Absolute Lymphocytes (CBC) 2.2 K/uL (0.7-4.9); Hematocrit 33.1 % (36.0-45.0); Lymphocytes % 24.6 % (15.3-44.8); MPV 10.1 fL (7.6-11.3); RBC Red Blood Cell Count 3.57 M/uL (3.86-4.86)
[2021-03-20 21:44] LABS: Protime INR 0.98
[2021-03-20 22:08] LABS: ALT/SGPT 29 U/L (12-78); AST/SGOT 22 U/L (15-37); Alkaline Phosphatase 164 U/L (45-117); BUN Blood Urea Nitrogen 48 mg/dL (7-18); Bicarbonate 23 mmol/L (21-32); Bilirubin Direct < 0.1 mg/dL (0-0.2); Glucose Level 153 mg/dL (74-106); Magnesium 2.4 mg/dL (1.8-2.4); NT PRO-BNP 3824 pg/mL (<450); Potassium 4.1 mmol/L (3.5-5.1); Protein, Total 7.5 g/dL (6.4-8.2); Sodium Level 140 mmol/L (136-145); Thyroid Stimulating Hormone 0.781 uIU/mL (0.360-3.740)
[2021-03-20 22:14] LABS: Bilirubin Total < 0.1 mg/dL (0.2-1.0)
[2021-03-20 22:35] LABS: SARS-COV-2 RT PCR NEGATIVE (NEGATIVE)
[2021-03-20 22:58] LABS: Urine Blood 1+ (Negative); Urine Glucose Negative (Negative); Urine Protein 2+ (Negative)
--- NOTE | 2021-03-21 00:16 | ER ---
Nurse's Notes [facility] [place] Name: Teena Simpson Age: 76 yrs Sex: Female : 1945 Arrival Date: 03/20/2021 Time: 19:28 Bed 26 Private MD: Diagnosis: Palpitations;Dizziness and giddiness Presentation: 03/20 20:04 Chief complaint: Patient states: Palpitations and dizziness that began about 1800; lp1 Recently discharge from [facility] for dehydration, previously at [facility] for GI bleed. Coronavirus screen: At this time, the client does not indicate any symptoms associated with coronavirus-19. Ebola Screen: No symptoms or risks identified at this time. Initial Sepsis Screen: Does the patient meet any 2 criteria? No. Patient's initial sepsis screen is negative. Does the patient have a suspected source of infection? No. Patient's initial sepsis screen is negative. Risk Assessment: Do you want to hurt yourself or someone else? Patient reports no desire to harm self or others. Onset of symptoms was March 20, 2021 at 18:00. 20:04 Method Of Arrival: Wheelchair lp1 20:04 Acuity: TYSON 2 lp1 Triage Assessment: 20:15 General: Appears in no apparent distress. comfortable, obese, well groomed, well st1 developed. 20:15 Pain: Denies pain. st1 Historical: - Allergies: 20:06 Cipro; lp1 20:06 Augmentin; lp1 - PMHx: 20:06 Anxiety; Atrial Fib; CHF; Diabetes - IDDM; High Cholesterol; Hypertension; Low HR; lp1 Myocardial infarction; neuropathy; Seizures; - PSHx: 20:06 Appendectomy; Pacemaker-Defib; lp1 - Immunization history:: Adult Immunizations up to date, patient had moderna COVID vaccination and 1 booster Pneumococcal vaccine is up to date, Flu vaccine is up to date. - Family history:: not pertinent. - Social history:: Smoking status: Patient denies any tobacco usage or history of. - Code Status:: Full code. Screenin:00 Abuse screen: Denies threats or abuse. Nutritional screening: No deficits noted. st1 Tuberculosis screening: No symptoms or risk factors identified. Fall Risk None identified. No fall in past 12 months (0 pts). No secondary diagnosis (0 pts). IV access (20 points). Ambulatory Aid- None/Bed Rest/Nurse Assist (0 pts). Gait- Weak (10 pts.). Mental Status- Oriented to own ability (0 pts). Total Lynch Fall Scale indicates Low Risk Score (25-44 pts). Fall prevention measures have been instituted. Side Rails Up X 2 Placed close to Nursing Station Frequent Obs/Assesments occuring Family Present and informed to notify staff if they need to leave bedside As available Patient and Family Educated on Fall Prevention Program and strategies. Exposure risk/Travel Screening: None identified. Has not been out of the country. Assessment: 21:00 Reassessment: Patient appears in no apparent distress at this time. No changes from st1 previously documented assessment. Reassessment: Patient and/or family updated on plan of care and expected duration. Pain level reassessed. Patient is alert, oriented x 3, equal unlabored respirations, skin warm/dry/pink. Patient denies pain at this time. General: Appears in no apparent distress. comfortable, obese, Behavior is calm, cooperative. Pain: Denies pain. Neuro: No deficits noted. Cardiovascular: Rhythm is Respiratory: No deficits noted. Musculoskeletal: No deficits noted. Vital Signs: 20:04 BP 147 / 70; Pulse 66; Resp 18; Temp 97(TE); Pulse Ox 100% on R/A; Weight 86.86 kg (R); lp1 Height 5 ft. 0 in. (152.40 cm); 20:15 BP 160 / 62; Pulse 67; Resp 16; Temp 98.4; Pulse Ox 98% ; Pain 0/10; st1 20:49 BP 142 / 80; Pulse 68; Resp 16; Pulse Ox 100% on R/A; st1 23:00 BP 146 / 70; Pulse 62; Resp 14; Pulse Ox 99% ; st1 03/21 00:45 BP 136 / 50; Pulse 60; Resp 16; Pulse Ox 98% on R/A; st1 03/20 20:04 Body Mass Index 37.40 (86.86 kg, 152.40 cm) lp1 Erving Coma Score: 03/20 20:15 Eye Response: spontaneous(4). Verbal Response: oriented(5). Motor Response: obeys st1 commands(6). Total: 15. ED Course: 19:28 Patient arrived in ED. kc5 20:03 Warrne Pitts MD is Attending Physician. 7 20:06 Triage completed. lp1 20:06 Arm band placed on. lp1 20:15 Patient has correct armband on for positive identification. Placed in gown. Bed in low st1 position. Call light in reach. Side rails up X2. daughter at bedside. phototypesetting equipment monitor on. Pulse ox on. NIBP on. Warm blanket given. Pillow given. Verbal reassurance given. 20:43 XRAY Chest (1 view) In Process Unspecified. EDMS 20:45 CT Head Brain wo Cont In Process Unspecified. EDMS 20:54 Lisa Nava, RN is Primary Nurse. st1 22:15 Inserted saline lock: 20 gauge in right antecubital area, using aseptic technique. st1 22:58 the patient was provided fluid for PO challenge. st1 03/21 00:16 Ross Graf MD is Referral Physician. 7 01:15 No provider procedures requiring assistance completed. st1 01:16 IV discontinued, intact, bleeding controlled, No redness/swelling at site. Pressure st1 dressing applied. Administered Medications: No medications were administered Outcome: 00:16 Discharge ordered by . mh7 01:15 Discharged to home via wheelchair, with family. st1 01:15 Condition: good 01:15 Discharge instructions given to patient, family, Instructed on discharge instructions, follow up and referral plans. Demonstrated understanding of instructions, follow-up care. 01:16 Patient left the ED. st1 Signatures: Dispatcher [employer] Sherri Reece, WM RN 1 Warren Pitts MD MD [facility] Erin Lyons [facility] Lisa Nava, WM RN st1
--- NOTE | 2021-03-21 00:17 | EDPHYS ---
Physician Documentation [facility] Name: Teena Simpson Age: 76 yrs Sex: Female : 1945 Arrival Date: 03/20/2021 Time: 19:28 Bed 26 Private MD: ED Physician Warren Pitts HPI: 03/20 20:32 This 76 yrs old Female presents to ER via Wheelchair with complaints of mh7 Palpitations, Blurred Vision. 20:33 The patient presents with a history of heart racing. Context: The symptoms occur at mh7 rest. Onset: The symptoms/episode began/occurred today. Duration: The patient or guardian reports multiple episodes, that are intermittent, that wax and wane, with no pattern. Modifying factors: The symptoms are aggravated by nothing. The symptoms are alleviated by nothing. Associated signs and symptoms: Pertinent positives: lightheadedness, Dizziness, generalized fatigue, Pertinent negatives: chest pain, cough, fever, nausea, SOB, syncope, near-syncope, unusual stressors, vertigo, vomiting. Severity of symptoms: At their worst the symptoms were moderate today, in the emergency department the symptoms have improved moderately. The patient has been recently been admitted at [facility], was discharged last week. Historical: - Allergies: 20:06 Cipro; lp1 20:06 Augmentin; lp1 - PMHx: 20:06 Anxiety; Atrial Fib; CHF; Diabetes - IDDM; High Cholesterol; Hypertension; Low HR; lp1 Myocardial infarction; neuropathy; Seizures; - PSHx: 20:06 Appendectomy; Pacemaker-Defib; lp1 - Immunization history:: Adult Immunizations up to date, patient had moderna COVID vaccination and 1 booster Pneumococcal vaccine is up to date, Flu vaccine is up to date. - Family history:: not pertinent. - Social history:: Smoking status: Patient denies any tobacco usage or history of. - Code Status:: Full code. ROS: 20:33 Constitutional: Negative for fever, chills, and weight loss, Eyes: Negative for injury, mh7 pain, redness, and discharge, ENT: Negative for injury, pain, and discharge, Neck: Negative for injury, pain, and swelling, Respiratory: Negative for shortness of breath, cough, wheezing, and pleuritic chest pain, Abdomen/GI: Negative for abdominal pain, nausea, vomiting, diarrhea, and constipation, Back: Negative for injury and pain, : Negative for injury, bleeding, discharge, and swelling, MS/Extremity: Negative for injury and deformity, Skin: Negative for injury, rash, and discoloration, Neuro: Negative for headache, weakness, numbness, tingling, and seizure, Psych: Negative for depression, anxiety, suicide ideation, homicidal ideation, and hallucinations, Allergy/Immunology: Negative for hives, rash, and allergies, Endocrine: Negative for neck swelling, polydipsia, polyuria, polyphagia, and marked weight changes, Hematologic/Lymphatic: Negative for swollen nodes, abnormal bleeding, and unusual bruising. Exam: 20:33 Constitutional: This is a well developed, well nourished patient who is awake, alert, mh7 and in no acute distress. Head/Face: Normocephalic, atraumatic. Eyes: Pupils equal round and reactive to light, extra-ocular motions intact. Lids and lashes normal. Conjunctiva and sclera are non-icteric and not injected. Cornea within normal limits. Periorbital areas with no swelling, redness, or edema. Neck: Trachea midline, no thyromegaly or masses palpated, and no cervical lymphadenopathy. Supple, full range of motion without nuchal rigidity, or vertebral point tenderness. No Meningismus. Chest/axilla: Normal chest wall appearance and motion. Nontender with no deformity. No lesions are appreciated. Cardiovascular: Regular rate and rhythm with a normal S1 and S2. No gallops, murmurs, or rubs. Normal PMI, no JVD. No pulse deficits. Respiratory: Lungs have equal breath sounds bilaterally, clear to auscultation and percussion. No rales, rhonchi or wheezes noted. No increased work of breathing, no retractions or nasal flaring. Abdomen/GI: Soft, non-tender, with normal bowel sounds. No distension or tympany. No guarding or rebound. No evidence of tenderness throughout. Back: No spinal tenderness. No costovertebral tenderness. Full range of motion. Skin: Warm, dry with normal turgor. Normal color with no rashes, no lesions, and no evidence of cellulitis. MS/ Extremity: Pulses equal, no cyanosis. Neurovascular intact. Full, normal range of motion. Psych: Awake, alert, with orientation to person, place and time. Behavior, mood, and affect are within normal limits. Vital Signs: 20:04 BP 147 / 70; Pulse 66; Resp 18; Temp 97(TE); Pulse Ox 100% on R/A; Weight 86.86 kg (R); lp1 Height 5 ft. 0 in. (152.40 cm); 20:15 BP 160 / 62; Pulse 67; Resp 16; Temp 98.4; Pulse Ox 98% ; Pain 0/10; st1 20:49 BP 142 / 80; Pulse 68; Resp 16; Pulse Ox 100% on R/A; st1 23:00 BP 146 / 70; Pulse 62; Resp 14; Pulse Ox 99% ; st1 03/21 00:45 BP 136 / 50; Pulse 60; Resp 16; Pulse Ox 98% on R/A; st1 03/20 20:04 Body Mass Index 37.40 (86.86 kg, 152.40 cm) lp1 Isabel Coma Score: 03/20 20:15 Eye Response: spontaneous(4). Verbal Response: oriented(5). Motor Response: obeys st1 commands(6). Total: 15. MDM: 03/21 00:13 Differential diagnosis: arrythmia, dehydration, stress disorder. Data reviewed: vital mh7 signs, nurses notes, old medical records, lab test result(s), cardiac enzymes, CBC, electrolytes, urinalysis, EKG, radiologic studies, CT scan, plain films. Data interpreted: Pulse oximetry: on room air is 100 %. Interpretation: normal. Counseling: I had a detailed discussion with the patient and/or guardian regarding: the historical points, exam findings, and any diagnostic results supporting the discharge/admit diagnosis, the presence of at least one elevated blood pressure reading (>120/80) during this emergency department visit, lab results, radiology results, the need for outpatient follow up, to return to the emergency department if symptoms worsen or persist or if there are any questions or concerns that arise at home. Response to treatment: the patient's symptoms have resolved after treatment, the patient's blood pressure is in an acceptable range, mental status has returned to baseline, the patient no longer shows bradycardia, the patient is not short of breath, the patient is not tachycardic, the patient's pain is gone, the patient's temperature has normalized, the patient is now symptom free. ED course: Feels better, well-appearing, no acute distress, vital signs stable, no focal neurological deficits. No chest pain, abdominal pain, shortness of breath, palpitations, headache, dizziness, numbness/tingling, weakness, nausea, vomiting, or other complaints. Tolerating p.o. intake and ambulating without difficulty. She states that she is ready for discharge at this time.. 00:16 Patient medically screened. [facility] 03/20 20:07 Order name: Basic Metabolic Panel; Complete Time: 22:40 [facility] 03/20 20:07 Order name: CBC with Diff; Complete Time: 22:10 [facility] 03/20 20:07 Order name: LFT's; Complete Time: 22:40 [facility] 03/20 20:07 Order name: Magnesium; Complete Time: 22:40 [facility] 03/20 20:07 Order name: NT PRO-BNP; Complete Time: 22:40 [facility] 03/20 20:07 Order name: PT-INR; Complete Time: 22:10 [facility] 03/20 20:07 Order name: EKG; Complete Time: 20:07 [facility] 03/20 20:07 Order name: Troponin HS; Complete Time: 22:40 [facility] 03/20 20:07 Order name: XRAY Chest (1 view); Complete Time: 21:14 [facility] 03/20 20:07 Order name: TSH; Complete Time: 22:40 [facility] 03/20 20:32 Order name: CT Head Brain wo Cont; Complete Time: 21:14 [facility] 03/20 21:19 Order name: COVID-19/FLU A+B (Document "Date of Onset" if Symptomatic); Complete Time: [facility] 22:40 03/20 22:58 Order name: Urine Dipstick-Ancillary; Complete Time: 23:02 EDMS 03/20 20:07 Order name: EKG - Nurse/Tech; Complete Time: 20:07 [facility] 03/20 20:07 Order name: EKG; Complete Time: 20:08 [facility] 03/20 20:07 Order name: Cardiac monitoring; Complete Time: 20:54 [facility] 03/20 20:07 Order name: EKG - Nurse/Tech; Complete Time: 20:54 [facility] 03/20 20:07 Order name: IV Saline Lock; Complete Time: 22:53 [facility] 03/20 20:07 Order name: Labs collected and sent [facility] 03/20 20:07 Order name: O2 Per Protocol; Complete Time: 20:54 [facility] 03/20 20:07 Order name: O2 Sat Monitoring; Complete Time: 20:54 [facility] 03/20 20:07 Order name: Urine Dipstick-Ancillary (obtain specimen); Complete Time: 22:57 [facility] 03/20 22:43 Order name: PO challenge; Complete Time: 22:58 [facility] Administered Medications: No medications were administered Disposition Summary: 03/21/21 00:16 Discharge Ordered Location: Home [facility] Problem: new [facility] Symptoms: have improved [facility] Condition: Stable [facility] Diagnosis - Palpitations [facility] - Dizziness and giddiness [facility] Followup: [facility] - With: Private Physician - When: 1 - 2 days - Reason: Worsening of condition, Recheck today's complaints, Continuance of care, Re-evaluation by your physician Followup: [facility] - With: Ross Graf MD - When: 1 - 2 days - Reason: Worsening of condition, Recheck today's complaints Discharge Instructions: - Discharge Summary Sheet [facility] - Palpitations, [id number] [facility] - Dizziness, [id number] [facility] Forms: - Medication Reconciliation Form [facility] - Thank You Letter [facility] - Antibiotic Education [facility] - Prescription Opioid Use [facility] Signatures: Dispatcher [employer] EDMS Sherri Moya RN RN lp1 Warren Pitts MD MD 7 Lisa Nava RN RN st1 Corrections: (The following items were deleted from the chart) 03/20 20:34 20:30 Transvaginal Ob+US.RAD.BRZ ordered. EDMS EDMS
[2021-03-21 01:23] VITALS: TEMP 98.4
[2021-03-21 01:26] VITALS: BP 136/50; O2SAT 98
== END 2021-03-21 01:16 | disposition home or self-care (01) ==
LOC: ER 19:27
DX: R00.2 Palpitations (principal); R42 Dizziness and giddiness; I11.0 Hypertensive heart disease with heart failure; I50.9 Heart failure, unspecified; I48.91 Unspecified atrial fibrillation; E11.9 Type 2 diabetes mellitus without complications; E78.00 Pure hypercholesterolemia, unspecified; F41.9 Anxiety disorder, unspecified; R56.9 Unspecified convulsions; I25.2 Old myocardial infarction; Z95.0 Presence of cardiac pacemaker; Z88.0 Allergy status to penicillin; Z88.3 Allergy status to other anti-infective agents; Z20.822 Contact with and (suspected) exposure to COVID-19
CPT/HCPCS: 93005 ×2; 85025; 80048; 36415; 83735; 85610; 80076; 84443; 81003; 84484; 83880; 0240U; 70450; 71045; 99284

== ENCOUNTER 2021-04-07 14:24 | Inpatient (IN) | payer OTHER ==
--- OUTSIDE RECORDS SUMMARY | 2021-04-07 14:28 | XMS REPORT | Continuity of Care Document ---
:1945 Author Organization [facility] t Address [address] [place] [address] Care Team Providers Name Role Phone Lauren Lou Primary Care Physician KIA Attending Clinician Unavailable Lauryn GONSALVES Attending Clinician Unavailable BETTYE Attending Clinician Unavailable Kumar SQUIRES Attending Clinician Kia SQUIRES Attending Clinician CHARLES GARCIA Attending Clinician Unavailable HCARLES GARCIA Attending Clinician Unavailable Jazmyne BURK, Lauryn Attending Clinician Unavailable Payers Payer Name Policy Type Policy Number Effective Date Expiration Date Lucy soliskarthik BLAKE/SANDRA [id number] 2019 MEDICARE ADVANTAGE 00:00:00 Advance Directives Directive Decision Effective Termination Comments Source Date Date Healthcare Agents on N/A [facility] FileNameRelationshipHealthcare [facility] Agent Medical RelationshipCommunicationGraciela Branch NegreteChildHealth Care [phone] (Mobile) [email or web address] nichelle Pierre [facility] Alternate Health Care [phone] (Mobile) [email or web address] Condition Condition Condition Status Onset Resolution Last Treating Co mments Source Name Details Category Date Date Treatment Clinician Date V-tach V-tach Disease Active Univers 1-22 ity of 00:00: [place] [facility] GI bleed GI bleed Disease Active Unive rs 1-17 ity of 00:00: [place] [facility] Rectal Rectal Disease Active Overview: Univer s bleeding bleeding 1-17 Formattin ity of 00:00: g of this note Medical might be Branch different from the original. Added automatic ally from request for surgery [id number] Refusal of Refusal of Disease Active 2020-02 U nivers blood blood 2-13 [place]y of transfusio transf[place]io [place] 00 Medical patient is patient is Br zenon [employer] orthodox Witness Osteopenia Osteopenia Disease Active 2020-02 U [...] 0-21 ity of 30-39.9) 30-39.9) 00:00: [place] [facility] Orthostati Orthostati Disease Active 2018-02 U nivers c c 0-21 [place]y of hypotensio hypotensio [place] FELICIA (acute FELICIA (acute Disease Active 2018-02 U nivers kidney kidney 0-21 ity of injury) injury) 00:00: [place] [facility] Dizzy Dizzy Disease Active 2018-02 Univers spells spells 0-19 ity of 00:00: [place] 00 Medical Branch Acute on Acute on Disease Active Unive rs chronic chronic 9-11 ity of anemia anemia 00:00: [place] [facility] Atypical Atypical Disease Active Unive rs chest pain chest pain 5-09 it y of 00:00: [place] 00 Medical Branch Left arm Left arm Disease Active Unive rs pain pain 5-08 ity of 00:00: [place] 00 Medical Branch Arthritis Arthritis Disease Active Uni vers of lumbar of lumbar 1-07 ity of spine spine 00:00: [place] 00 Medical Branch Degenerati Degenerati Disease Active 2019 U lorrieers ve ve 1-07 [place]y of arthritis arthritis 00:00[place] lumbar of lumbar 00 Medi sandra spine spine Branch Spondyloli Spondyloli Disease Active 2019 U nivers sthesis, sthesis, 1-07 ity of lumbar lumbar 00:00: [place] region region 00 Medical Branch DDD DDD Disease Active Univers (degenerat (degenerat 1-07 it y of fernando disc fernando disc 00:00: [place] disease), disease), 00 Medi sandra lumbar lumbar Branch Osteoarthr Osteoarthr Disease Active 2019 U nivers itis of itis of 1-07 ity of left knee left knee [place] Dysphagia Dysphagia Disease Active 2017-02 Uni vers 2-26 ity of 00:00: [place] 00 Medical Branch Dyspnea Dyspnea Disease Active 2017-02 Univers 2-26 ity of 00:00: [place] [facility] Acute on Acute on Disease Active 2017-02 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 Bosniak Type [address] Hyperkalem Hyperkalem Disease Active U nivers ia ia 5- ity of 00:00: [place] [facility] History of History of Disease Active U nivers colon colon 5-03 ity of polyps polyps 00:00: [place] [facility] History of History of Disease Active U nivers pulmonary pulmonary 2-17 ity of embolism embolism 00:00: [place] [facility] ICD ICD Disease Active Univers (implantab (implantab 2-17 it y of le le 00:00: [place] cardiovert cardiovert 00 Me dical er-defibri er-defibri Br anch llator) in llator) in place place Atrial Atrial Disease Active Univers fibrillati fibrillati 1-16 it y of on on 00:00: [place] [facility] Syncope Syncope Disease Active Univers 1-15 ity of 00:00: [place] [facility] DM DM Disease Active Univers (diabetes (diabetes 8-31 ity of mellitus), mellitus), [place] type 2 type 2 00 Medical with renal with renal Br anch complicati complicati ons ons Anxiety Anxiety Disease Active Univers ity of [facility] CKD CKD Disease Active Univers (chronic (chronic ity of kidney kidney [place] disease) disease) Medica l stage 4, stage 4, Branch GFR 15-29 GFR 15-29 ml/min ml/min Epilepsy Epilepsy Disease Active Unive rs ity of [facility] Esophageal Esophageal Disease Active U nivers reflux reflux ity of [facility] HLD HLD Disease Active Univers (hyperlipi (hyperlipi it y of demia) demia) [facility] HTN HTN Disease Active Univers (hypertens (hypertens it y of ion) ion) [facility] 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 [place] [facility] ASHLYN ASHLYN Disease Active Univers (obstructi (obstructi it y of ve sleep ve sleep [place] apnea) apnea) [facility] Allergies, Adverse Reactions, Alerts Allergy Allergy Status Severity Reaction(s) Onset Inactive Treating Comm ents Source Name Type Date Date Clinician Ciproflo Drug Active Other - See 2020-02 myalgia Un araseli xacin Intolera comments 2-13 ity of nce 00:00: [place] 00 [facility] Branch Amoxicil Drug Active Other - See 2020-02 Myalgia Un araseli ryder-Pot Intolera comments 2-13 ity o f Clavulan nce 00:00: [place] ate 00 Medical Branch AMOXICIL DRUG Active Low Other-Cmnt 2020-02 Univ ers RYDER-POT 2-13 ity of CLAVULAN 00:00: [place] ATE 00 Medical Branch CIPROFLO DRUG Active Low Other-Cmnt 2020-02 Univ ers XACIN INGREDI 2-13 ity of 00:00: [address] Social History Social Habit Start Date Stop Date Quantity Comments Source Exposure to Not sure [facility] SARS-CoV-2 [facility] (event) Branch Alcohol intake 2021-03-29 2021-03-29 Current University of 00:00:00 00:00:00 non-drinker of [facility] alcohol Branch (finding) Tobacco Comment 2021-03-07 2021-03-07 exposed to "a Univer sity of 00:00:00 00:00:00 lot" of passive [place] Med ical smoke from Branch Tobacco use and 2019-12-09 2019-12-09 Never used Universit y of exposure 00:00:00 00:00:00 [facility] Sex [birth year] Universit y of 00:00:00 00:00:00 [facility] Smoking Status Start Date Stop Date Source Never smoker University Prabhjot gonzalez Medical Branch Medications Ordered Filled Start Stop Current Ordering Indication Dosage Frequency Signature Comments Components Source Medication Medication Date Date Medication? Clinician (SIG) Name Name OXcarbazepi 2-0 Yes [id number] 150mg Take 1 Univers ne 150 mg 2-09 tablet by ity o f tablet 00:00: mouth 2 [place] 00 (two) Medical times Branch daily. After 1 week take 2 PO BID, then in 1 week 3 PO BID and call office for further instructio ns. OXcarbazepi 2021-0 Yes [id number] 150mg Take 1 Univers ne 150 mg 2-09 tablet by ity o f tablet 00:00: mouth 2 [place] 00 (two) Medical times Branch daily. After 1 week take 2 PO BID, then in 1 week 3 PO BID and call office for further instructio ns. OXcarbazepi 2021-0 Yes [id number] 150mg Take 1 Univers ne 150 mg 2-09 tablet by ity o f tablet 00:00: mouth 2 [place] 00 (two) Medical times Branch daily. After 1 week take 2 PO BID, then in 1 week 3 PO BID and call office for further instructio ns. phenytoin 2021-2021- Yes [id number] 100mg Take 1 Univers Extended 2-09 02-24 capsule by ity of 100 mg 00:00: 05:59 mouth [place] capsule 00 :00 daily for Medical 14 days. Branch phenytoin 2021-0 2021- Yes [id number] 100mg Take 1 Univers Extended 2-09 02-24 capsule by ity of 100 mg 00:00: 05:59 mouth [place] capsule 00 :00 daily for Medical 14 days. Branch phenytoin 2021-0 2021- Yes [id number] 100mg Take 1 Univers Extended 2-09 02-24 capsule by ity of 100 mg 00:00: 05:59 mouth [place] capsule 00 :00 daily for Medical 14 days. Branch metoprolol 2021-0 Yes 100mg Take 100 Un araseli tartrate 2-02 mg by ity of 100 mg 15:47: mouth 2 [place] tablet 48 (two) Medical times Branch daily. metoprolol 2021-0 Yes 100mg Take 100 Un araseli tartrate 2-02 mg by ity of 100 mg 15:47: mouth 2 [place] tablet 48 (two) Medical times Branch daily. metoprolol 2022-0 Yes 100mg Take 100 Un araseli tartrate 2-02 mg by ity of 100 mg 15:47: mouth 2 [place] tablet 48 (two) Medical times Branch daily. insulin NPH 2021- Yes [id number] inject 15 Univers (HUMULIN N - 03-26 Units ity of NPH U-100 00:00: 04:59 [place] the [place] INSULIN) 00 :00 skin every Medic al 100 unit/mL morning Branc h injection for 28 days, THEN 11 Units every evening for 28 days. insulin NPH 2021- Yes [id number] inject 15 Univers (HUMULIN N 03-18-26 Units ity of NPH U-100 00:00: 04:59 [place] the [place] INSULIN) 00 :00 skin every Medic al 100 unit/mL morning Branc h injection for 28 days, THEN 11 Units every evening for 28 days. insulin NPH 2021- Yes [id number] inject 15 Univers (HUMULIN N 03-18-26 Units ity of NPH U-100 00:00: 04:59 [place] the [place] INSULIN) 00 :00 skin every Medic al 100 unit/mL morning Branc h injection for 28 days, THEN 11 Units every evening for 28 days. furosemide Yes [id number] 20mg Take 1 Univers 20 mg 1-27 tablet by ity of tablet 00:00: mouth [place] 00 daily. Medical Branch insulin NPH Yes [id number] 11U inject 11 Univers (NOVOLIN N 1-27 Units ity of NPH U-100 00:00: under the [place] as INSULIN) 00 skin every Medic al 100 unit/mL evening. Bran ch injection levETIRAcet Yes [id number] 500mg Take 1 Univers am 500 mg 1-27 tablet by ity o f tablet 00:00: mouth 2 [place] 00 (two) Medical times Branch daily. furosemide Yes [id number] 20mg Take 1 Univers 20 mg 1-27 tablet by ity of tablet 00:00: mouth [place] 00 daily. Medical Branch insulin NPH Yes [id number] 11U inject 11 Univers (NOVOLIN N 1-27 Units ity of NPH U-100 00:00: under the [place] as INSULIN) 00 skin every Medic al 100 unit/mL evening. Bran ch injection levETIRAcet Yes [id number] 500mg Take 1 Univers am 500 mg 1-27 tablet by ity o f tablet 00:00: mouth 2 (two) Medical times Branch daily. furosemide Yes [id number] 20mg Take 1 Univers 20 mg 1-27 tablet by ity of tablet 00:00: mouth [place] 00 daily. Medical Branch insulin NPH Yes [id number] 11U inject 11 Univers (NOVOLIN N 1-27 Units ity of NPH U-100 00:00: under the [place] as INSULIN) 00 skin every Medic al 100 unit/mL evening. Bran ch injection levETIRAcet Yes [id number] 500mg Take 1 Univers am 500 mg 1-27 tablet by ity o f tablet 00:00: mouth 2 (two) Medical times Branch daily. pantoprazol Yes [id number] 40mg Take 1 Univers e 40 mg EC 1-21 tablet by ity of tablet 00:00: mouth [place] 00 daily. Medical Branch pantoprazol Yes [id number] 40mg Take 1 Univers e 40 mg EC 1-21 tablet by ity of tablet 00:00: mouth [place] 00 daily. Medical Branch pantoprazol Yes [id number] 40mg Take 1 Univers e 40 mg EC 1-21 tablet by ity of tablet 00:00: mouth [place] 00 daily. Medical Branch apixaban 2020-02 Yes 5mg Take 1 Univers (ELIQUIS) 5 2-14 tablet by ity of mg tablet 00:00: mouth 2 00 (two) Medical times Branch daily. atorvastati 2020-02 Yes [id number] 40mg Take 1 Univers n 40 mg 2-14 tablet by ity of tablet 00:00: mouth at [place] 00 bedtime. Medical Branch insulin 2020-02 Yes 8U inject 8 Univer s regular 2-14 Units ity of human 00:00: under the [place] (NOVOLIN R 00 skin Medical REGULAR daily. Branch U-100 Daily at [facility]) 100 noon unit/mL injection apixaban 2020-02 Yes 5mg Take 1 Univers (ELIQUIS) 5 2-14 tablet by ity of mg tablet 00:00: mouth 2 (two) Medical times Branch daily. atorvastati 2020-02 Yes [id number] 40mg Take 1 Univers n 40 mg 2-14 tablet by ity of tablet 00:00: mouth at [place] 00 bedtime. Medical Branch insulin 2020-02 Yes 8U inject 8 Univer s regular 2-14 Units ity of human 00:00: under the [place] (NOVOLIN R 00 skin Medical REGULAR daily. Branch U-100 Daily at [facility]) 100 noon unit/mL injection apixaban 2020-02 Yes 5mg Take 1 Univers (ELIQUIS) 5 2-14 tablet by ity of mg tablet 00:00: mouth 2 [place] 00 (two) Medical times Branch daily. atorvastati 2020-02 Yes [id number] 40mg Take 1 Univers n 40 mg 2-14 tablet by ity of tablet 00:00: mouth at [place] 00 bedtime. Medical Branch insulin 2020-02 Yes 8U inject 8 Univer s regular 2-14 Units ity of human 00:00: under the [place] (NOVOLIN R 00 skin Medical REGULAR daily. Branch U-100 Daily at [facility]) 100 noon unit/mL injection Blood-Gluco Yes Check Unive rs se Meter [...] 5-15 glucose ity of 00:00: once daily [place] 00 before Medical breakfast; Branch Diagnosis code [...] Immunizations Ordered Filled Immunization Date Status Comments [facility] Immunization Name Name SARS-COV-2 COVID-19 2021-01-31 [...] Completed Unive rsity of MODERNA VACCINE 00:00:00 [facility] Branch SARS-COV-2 COVID-19 2020-03-29 Completed Unive rsity of MODERNA VACCINE 00:00:00 [facility] Branch SARS-COV-2 COVID-19 2020-03-29 Completed Unive rsity of MODERNA VACCINE 00:00:00 [facility] Branch Pneumococcal 13 2019-12-19 Completed Universit y of Conjugate, PCV13 00:00:00 [facility] dical (Prevnar 13) Branch Pneumococcal 13 2019-12-19 Completed Universit y of Conjugate, PCV13 00:00:00 [facility] dical (Prevnar 13) Branch Pneumococcal 13 2019-12-19 Completed Universit y of Conjugate, PCV13 00:00:00 [facility] dical (Prevnar 13) Branch Influenza Virus 2019-11-22 Completed Universit y of Vaccine Recomb Quad 00:00:00 [place] Medical IM, Preserv and ABX Branc h [...] 2018-03-25 Completed Unive rsity of 00:00:00 [facility] HEP B, Adult Dosage 2018-03-25 Completed Unive rsity of 00:00:00 [facility] HEP B, Adult Dosage 2018-03-25 Completed Unive rsity of 00:00:00 [facility] HEP B, Adult Dosage 2017-10-10 Completed Unive rsity of 00:00:00 [facility] HEP B, Adult Dosage 2017-10-10 Completed Unive rsity of 00:00:00 [facility] HEP B, Adult Dosage 2017-10-10 Completed Unive rsity of 00:00:00 [facility] HEP B, Adult Dosage 2017-09-05 Completed Unive rsity of 00:00:00 [facility] HEP B, Adult Dosage 2017-09-05 Completed Unive rsity of 00:00:00 [facility] HEP B, Adult Dosage 2017-09-05 Completed Unive rsity of 00:00:00 [facility] Pneumococcal 13 2015-02-19 Completed Universit y of Conjugate, PCV13 00:00:00 [place] Me dical (Prevnar 13) Branch Pneumococcal 13 2015-02-19 Completed Universit y of Conjugate, PCV13 00:00:00 [place] Me dical (Prevnar 13) Branch Pneumococcal 13 2015-02-19 Completed Universit y of Conjugate, PCV13 00:00:00 [place] Me dical (Prevnar 13) Branch Pneumococcal 2011-02-19 Completed University o f Polysaccharide, 00:00:00 [place] Med ical PPSV23 (PNEUMOVAX) Branch Pneumococcal 2011-02-19 Completed University o f Polysaccharide, 00:00:00 [place] Med ical PPSV23 (PNEUMOVAX) Branch Pneumococcal 2011-02-19 Completed University o f Polysaccharide, 00:00:00 [place] Med ical PPSV23 (PNEUMOVAX) [place] Vital Signs Vital Name Observation Time Observation Value Comments Source Systolic blood 2021-04-01 16:01:00 166 mm[Hg] Univer sity of [facility] Diastolic blood 2021-04-01 16:01:00 80 mm[Hg] Unive rsity of [facility] Heart rate 2021-04-01 15:53:00 55 /min [facility] Respiratory rate 2021-04-01 15:53:00 18 /[facility] height 2021-04-01 15:53:00 152.4 cm [facility] Body weight 2021-04-01 15:53:00 87.091 kg [facility] BMI 2021-04-01 15:53:00 37.50 kg/m2 [facility] Procedures This patient has no known procedures. Encounters Start End Encounter Admission Attending Care Care Encounter Source Date/Time Date/Time Type Type Clinicians Facility Department ID 2021-06-24 2021-06-24 Outpatient Moustapha ADAM [facility] [id number] Univers 10:00:00 10:00:00 RADHA [id number] ity of [facility] 2021-06-24 2021-06-24 Outpatient Moustapha ADAM [facility] [id number] Univers 10:00:00 10:00:00 RADHA ity [facility] 2021-04-15 2021-04-15 [facility] [id number] Univers 00:00:00 00:00:00 WONDIFUL [id number] ity o f [facility] 2021-04-15 2021-04-15 Outpatient R MAJOR [facility] [id number] Univers 00:00:00 00:00:00 WONDIFUL ity o f [facility] 2021-04-13 2021-04-13 [facility] [id number] Univers 10:00:00 10:00:00 WENTONG [facility] 2021-04-07 2021-04-07 [facility] [id number] Univers 00:00:00 00:00:00 Sriram PALOMO [id number] ity [facility] [id number] [place] PROF[place] [id number] [place] [address] 2021-04-01 2021-04-01 Office [facility] [id number] Univers 10:00:00 10:40:52 Visit [facility] DEWEY [id number] i ty [facility] [id number] [place] PROF[place] [id number] [place]ical N[place] [address] [place] [address] 2021-03-29 2021-03-29 Outpatient R ARACELIS GARCIA [facility] [id number] Univers 08:00:00 09:38:08 ARACELIS GARCIA [facility] 2020-05-20 2020-05-20 Telephone YANA Samano [id number] 00:00:00 00:00:00 Teri RENEE [id number] [facility] [id number] Results This patient has no known results.
[2021-04-07 16:24] LABS: Absolute Lymphocytes (CBC) 1.4 K/uL (0.7-4.9); Lymphocytes % 19.6 % (15.3-44.8); MPV 10.1 fL (7.6-11.3); RBC Red Blood Cell Count 3.57 M/uL (3.86-4.86)
[2021-04-07 16:33] LABS: Protime INR 1.15
--- NOTE | 2021-04-07 16:38 | RAD REPORT ---
EXAM DESCRIPTION: RAD - Chest Single View - 04/07/2021 4:28 pm CLINICAL HISTORY: htn, shortness of breath COMPARISON: AP chest 03/20/2021 TECHNIQUE: AP portable chest image was obtained 04/07/2021 4:28 pm . FINDINGS: Extensive interstitial lung disease is evident not clearly different from comparison. Luna rity of chronic disease could mask edema or infiltrate. No peripheral mass or consolidations seen. Heart size is normal range for portable imaging. Vasculature is prominent. Pacemaker/ defibrillator is in place. No measurable pleural effusion and no pneumothorax. No acute bony abnormality seen. No acute aortic findings suspected. IMPRESSION: No acute cardiopulmonary process identified. Prominent chronic interstitial pattern is stable. Severity could mask early interstitial edema or inf iltrate.
[2021-04-07 16:48] LABS: ALT/SGPT 18 U/L (12-78); AST/SGOT 16 U/L (15-37); Albumin 2.9 g/dL (3.4-5.0); Alkaline Phosphatase 124 U/L (45-117); BUN Blood Urea Nitrogen 54 mg/dL (7-18); Bicarbonate 26 mmol/L (21-32); Bilirubin Direct < 0.1 mg/dL (0-0.2); Bilirubin Total 0.1 mg/dL (0.2-1.0); Glucose Level 216 mg/dL (74-106); Magnesium 2.1 mg/dL (1.8-2.4); NT PRO-BNP 4944 pg/mL (<450); Potassium 4.2 mmol/L (3.5-5.1); Sodium Level 139 mmol/L (136-145)
[2021-04-07] MEDS ORDERED: NA CHLORIDE 0.9% 500 ML ONE (17:20)
[2021-04-07 18:17] LABS: Urine Blood 1+ (Negative); Urine Glucose Negative (Negative); Urine Protein 2+ (Negative); Urine pH 6.5 (5.0-7.0)
--- NOTE | 2021-04-07 19:32 | ER ---
Nurse's Notes [facility] Name: Teena Simpson Age: 76 yrs Sex: Female : 1945 Arrival Date: 04/07/2021 Time: 14:27 Bed 18 Private MD: Diagnosis: Hypotension, unspecified;Palpitations;Unspecified atrial fibrillation;Insulin-dependent diabetes Presentation: 04/07 15:18 Chief complaint: Patient states: "Her heart starts beating real fast and her blood ss pressure was real high. We talked to the nurse on the phone and she recommended to come to the ER. BP at home was 169/85 Pulse 128. Coronavirus screen: Client denies travel out of the [place] in the last 14 days. Ebola Screen: Patient denies exposure to infectious person. Patient denies travel to an Ebola-affected area in the 21 days before illness onset. Initial Sepsis Screen: Does the patient meet any 2 criteria? No. Patient's initial sepsis screen is negative. Does the patient have a suspected source of infection? No. Patient's initial sepsis screen is negative. Risk Assessment: Do you want to hurt yourself or someone else? Patient reports no desire to harm self or others. Onset of symptoms was April 07, 2021. 15:18 Method Of Arrival: Wheelchair ss 15:18 Acuity: TYSON 3 ss Historical: - Allergies: 15:21 Augmentin; ss 15:21 Cipro; ss - Home Meds: 16:55 atorvastatin 40 mg Oral tab 1 tab once daily [Active]; digoxin 125 mcg Oral tab once eo2 daily [Active]; Entresto 24-26 mg Oral tab twice a day [Active]; furosemide 40 mg Oral tab 2 times per day [Active]; gabapentin 300 mg Oral cap nightly [Active]; Lantus 50units Sub-Q soln nightly [Active]; metoprolol succinate 100 mg Oral Tb24 1 tab twice a day [Active]; Novolog 100 unit/mL Sub-Q soln 15 unit twice a day [Active]; Phenytoin 100mg cap Oral take 1 capsule every morning and 2 capsules in the evening [Active]; Phenytoin 100mg Oral 2 tabs twice a day [Active]; spironolactone 25 mg Oral tab once daily [Active]; tizanidine 2 mg Oral cap twice a day [Active]; Xarelto 15 mg Oral tab daily [Active]; - PMHx: 15:21 Anxiety; Atrial Fib; CHF; Diabetes - IDDM; High Cholesterol; Hypertension; Low HR; ss Myocardial infarction; neuropathy; Seizures; - PSHx: 15:21 Appendectomy; Pacemaker-Defib; ss - Immunization history:: Client reports receiving the 2nd dose of the Covid vaccine. - Social history:: Smoking status: Patient denies any tobacco usage or history of. Screenin:51 Abuse screen: Denies threats or abuse. Denies injuries from another. Nutritional eo2 screening: No deficits noted. Tuberculosis screening: No symptoms or risk factors identified. Fall Risk None identified. Assessment: 16:51 General: Appears in no apparent distress. Behavior is calm, cooperative. Pain: eo2 Complains of pain in posterior neck pain. Neuro: Level of Consciousness is awake, alert, obeys commands, Oriented to person, place, time, Speech is normal, Reports dizziness, headache. Cardiovascular: Reports palpitations, x2 months Capillary refill < 3 seconds JVD is absent Patient's skin is warm and dry. Rhythm is atrial fibrillation. Respiratory: Reports shortness of breath Airway is patent Trachea midline Respiratory effort is even, unlabored, Respiratory pattern is regular, symmetrical, Breath sounds are clear bilaterally. GI: Patient currently denies diarrhea, nausea, vomiting. 17:10 Reassessment: Dr. Myers notified of patient's heart rate of 147. ss 17:32 Reassessment: Interrogated pacemaker/defib with [employer] device. Awaiting for report. ss 18:57 Reassessment: hold NS 1000ml per Dr. Myers. eo2 19:20 General: Appears in no apparent distress. comfortable, Behavior is calm, cooperative, al4 patient has daughter at bedside. patient came in to day for feeling of fast HR and SOB, patient denies those feelings at this time.. Neuro: Level of Consciousness is awake, alert, obeys commands, Oriented to person, place, time, situation, Speech is normal. Cardiovascular: Capillary refill < 3 seconds Patient's skin is warm and dry. Rhythm is Respiratory: Airway is patent Respiratory effort is even, unlabored, Respiratory pattern is regular, symmetrical. GI: Patient currently denies diarrhea, nausea, vomiting. : No signs and/or symptoms were reported regarding the genitourinary system. EENT: No signs and/or symptoms were reported regarding the EENT system. Derm: No signs and/or symptoms reported regarding the dermatologic system. Musculoskeletal: Range of motion: intact in all extremities. 20:33 Reassessment: Patient is alert, oriented x 3, equal unlabored respirations, skin al4 warm/dry/pink. 21:08 Reassessment: Report given to WM Enriquez. al4 21:33 Reassessment: Patient is alert, oriented x 3, equal unlabored respirations, skin al4 warm/dry/pink. Vital Signs: 15:18 BP 144 / 71; Pulse 121; Resp 17; Temp 98.4(O); Pulse Ox 100% ; Weight 88.45 kg; Pain ss 0/10; 16:51 BP 131 / 72; Pulse 128; Resp 19; Pulse Ox 100% ; Pain 4/10; eo2 17:20 BP 87 / 35; Pulse 147; Resp 17; Pulse Ox 99% ; Pain 0/10; ss 18:29 BP 101 / 74; Pulse 101; ss 18:30 BP 126 / 89; Pulse 109; Resp 17; Pulse Ox 97% ; Pain 4/10; eo2 19:00 BP 132 / 65; Pulse 78; Resp 16 S; Pulse Ox 98% on R/A; al4 20:00 BP 131 / 54; Pulse 72; Resp 17 S; Pulse Ox 98% on R/A; al4 21:00 BP 154 / 59; Pulse 67; Resp 18 S; Pulse Ox 98% on R/A; al4 Vitals: 16:51 Cardiac Rhythm Assessment Atrial fibrillation W/rapid ventricular response. eo2 ED Course: 14:27 Patient arrived in ED. mr 15:21 Triage completed. ss 15:21 Arm band placed on left wrist. ss 15:52 Gianfranco Myers MD is Attending Physician. kdr 16:28 XRAY Chest (1 view) In Process Unspecified. EDMS 16:46 Alissa Cruz RN is Primary Nurse. eo2 16:51 Patient has correct armband on for positive identification. monitoring specialist on. Pulse eo2 ox on. NIBP on. Door closed. Noise minimized. Warm blanket given. 16:51 No provider procedures requiring assistance completed. Inserted saline lock: 20 gauge eo2 in left forearm, using aseptic technique. Blood collected. 19:15 Report given to Ed BURK. eo2 19:21 Primary Nurse role handed off by Alissa Cruz RN mw2 19:26 Ed Snow is Primary Nurse. al4 19:29 Ihsan Fields MD is Hospitalizing Provider. kdr 19:36 Shanice Steven MD is Hospitalizing Provider. la1 20:52 Patient admitted, IV remains in place. al4 Administered Medications: 17:10 Drug: NS 0.9% 500 ml Route: IV; Rate: bolus; Site: left antecubital; ss 18:00 Follow up: IV Status: Completed infusion; IV Intake: 500ml eo2 18:57 Not Given (Physician Discretion): NS 0.9% 1000 ml IV at 1 bolus Per protocol; 1000 mL eo2 bolus 19:56 Drug: amiodarone 150 mg {Note: 2 RN check at bedside with WM Gonzalez.} Volume: 100 ml; al4 Route: IVPB; Infused Over: 10 mins; Site: left antecubital; 20:06 Follow up: Response: No adverse reaction; IV Status: Completed infusion; IV Intake: al4 100ml 20:25 Drug: amiodarone 900 mg, D5W 500 ml {Note: 2 RN check at bedside with WM Gonzalez.} al4 Route: IVPB; Rate: 1 mg/min; Site: left antecubital; Intake: 18:00 IV: 500ml; Total: 500ml. eo2 20:06 IV: 100ml; Total: 600ml. al4 Output: 18:15 Urine: 300ml (Voided); Total: 300ml. eo2 Outcome: 19:31 Decision to Hospitalize by Provider. kdr 20:51 Admitted to ICU room 4, Report called to WM Enriquez - unable to take report, was told al4 he will call me back. 20:51 Condition: stable 20:51 Instructed on the need for admit, Demonstrated understanding of instructions. 21:50 Patient left the ED. bb Signatures: Dispatcher [employer] EDMS Gianfranco Myers MD MD kdr Rivera, Mary mr Nissa Kaur RN RN bb Lola Carrillo RN RN Tremayne Martínez, SCRAP STRIPPER HAND-C [employer] STRIPPER HAND-Mag1 Yolanda Otero mw2 Ed Snow al4 Alissa Cruz, RN RN eo2
--- NOTE | 2021-04-07 19:32 | EDPHYS ---
Physician Documentation [facility] Name: Teena Simpson Age: 76 yrs Sex: Female : 1945 Arrival Date: 04/07/2021 Time: 14:27 Bed 18 Private MD: ED Physician Gianfranco Myers HPI: 04/07 19:55 This 76 yrs old Female presents to ER via Wheelchair with complaints of High kdr Blood Pressure. 19:55 Patient states that she has been having palpitations and elevated blood pressure for kdr more than a month. She indicated that she has had multiple hospital visits over the past 4 to 6 weeks for the same reason. She states she has been admitted to [facility], [facility]. She states that despite multiple evaluations and cardiac evaluations, they have been unable to stabilize her rhythm. Patient presents today with continued palpitations. Onset: The symptoms/episode began/occurred at an unknown time. Severity of symptoms: At their worst the symptoms were mild moderate just prior to arrival, in the emergency department the symptoms are unchanged. The patient has experienced similar episodes in the past, chronically. The patient has been recently seen by a physician:. Historical: - Allergies: 15:21 Augmentin; ss 15:21 Cipro; ss - Home Meds: 16:55 atorvastatin 40 mg Oral tab 1 tab once daily [Active]; digoxin 125 mcg Oral tab once eo2 daily [Active]; Entresto 24-26 mg Oral tab twice a day [Active]; furosemide 40 mg Oral tab 2 times per day [Active]; gabapentin 300 mg Oral cap nightly [Active]; Lantus 50units Sub-Q soln nightly [Active]; metoprolol succinate 100 mg Oral Tb24 1 tab twice a day [Active]; Novolog 100 unit/mL Sub-Q soln 15 unit twice a day [Active]; Phenytoin 100mg cap Oral take 1 capsule every morning and 2 capsules in the evening [Active]; Phenytoin 100mg Oral 2 tabs twice a day [Active]; spironolactone 25 mg Oral tab once daily [Active]; tizanidine 2 mg Oral cap twice a day [Active]; Xarelto 15 mg Oral tab daily [Active]; - PMHx: 15:21 Anxiety; Atrial Fib; CHF; Diabetes - IDDM; High Cholesterol; Hypertension; Low HR; ss Myocardial infarction; neuropathy; Seizures; - PSHx: 15:21 Appendectomy; Pacemaker-Defib; ss - Immunization history:: Client reports receiving the 2nd dose of the Covid vaccine. - Social history:: Smoking status: Patient denies any tobacco usage or history of. ROS: 19:55 Constitutional: Negative for fever, chills, and weight loss, Eyes: Negative for injury, kdr pain, redness, and discharge, Neck: Negative for injury, pain, and swelling, Respiratory: Negative for shortness of breath, cough, wheezing, and pleuritic chest pain, Abdomen/GI: Negative for abdominal pain, nausea, vomiting, diarrhea, and constipation, Back: Negative for injury and pain, : Negative for injury, bleeding, discharge, and swelling, Skin: Negative for injury, rash, and discoloration, Neuro: Negative for headache, weakness, numbness, tingling, and seizure activity. Psych: Negative for depression, anxiety, suicide ideation, homicidal ideation, and hallucinations, Allergy/Immunology: Negative for hives, rash, and allergies, Endocrine: Negative for neck swelling, polydipsia, polyuria, polyphagia, and marked weight changes, Hematologic/Lymphatic: Negative for swollen nodes, abnormal bleeding, and unusual bruising. 19:55 MS/extremity: Exam: 19:55 Constitutional: This is a well developed, well nourished patient who is awake, alert, kdr and in no acute distress. Head/Face: Normocephalic, atraumatic. Eyes: Pupils equal round and reactive to light, extra-ocular motions intact. Lids and lashes normal. Conjunctiva and sclera are non-icteric and not injected. Cornea within normal limits. Periorbital areas with no swelling, redness, or edema. ENT: Nares patent. No nasal discharge, no septal abnormalities noted. Tympanic membranes are normal and external auditory canals are clear. Oropharynx with no redness, swelling, or masses, exudates, or evidence of obstruction, uvula midline. Mucous membranes moist. Neck: Trachea midline, no thyromegaly or masses palpated, and no cervical lymphadenopathy. Supple, full range of motion without nuchal rigidity, or vertebral point tenderness. No Meningismus. Chest/axilla: Normal chest wall appearance and motion. Nontender with no deformity. No lesions are appreciated. Abdomen/GI: Soft, non-tender, with normal bowel sounds. No distension or tympany. No guarding or rebound. No evidence of tenderness throughout. Back: No spinal tenderness. No costovertebral tenderness. Full range of motion. Skin: Warm, dry with normal turgor. Normal color with no rashes, no lesions, and no evidence of cellulitis. MS/ Extremity: Pulses equal, no cyanosis. Neurovascular intact. Full, normal range of motion. Neuro: Awake and alert, GCS 15, oriented to person, place, time, and situation. Cranial nerves II-XII grossly intact. Motor strength 5/5 in all extremities. Sensory grossly intact. Cerebellar exam normal. Normal gait. Psych: Awake, alert, with orientation to person, place and time. Behavior, mood, and affect are within normal limits. 19:55 Cardiovascular: Rate: tachycardic, Rhythm: irregularly irregular, Pulses: Heart sounds: Edema: 2+ edema to level of , pedal edema. Vital Signs: 15:18 BP 144 / 71; Pulse 121; Resp 17; Temp 98.4(O); Pulse Ox 100% ; Weight 88.45 kg; Pain ss 0/10; 16:51 BP 131 / 72; Pulse 128; Resp 19; Pulse Ox 100% ; Pain 4/10; eo2 17:20 BP 87 / 35; Pulse 147; Resp 17; Pulse Ox 99% ; Pain 0/10; ss 18:29 BP 101 / 74; Pulse 101; ss 18:30 BP 126 / 89; Pulse 109; Resp 17; Pulse Ox 97% ; Pain 4/10; eo2 19:00 BP 132 / 65; Pulse 78; Resp 16 S; Pulse Ox 98% on R/A; al4 20:00 BP 131 / 54; Pulse 72; Resp 17 S; Pulse Ox 98% on R/A; al4 21:00 BP 154 / 59; Pulse 67; Resp 18 S; Pulse Ox 98% on R/A; al4 MDM: 19:31 Patient medically screened. kdr 19:55 Data reviewed: vital signs, nurses notes, lab test result(s), radiologic studies. kdr Counseling: I had a detailed discussion with the patient and/or guardian regarding: the historical points, exam findings, and any diagnostic results supporting the discharge/admit diagnosis, lab results, radiology results, the need for further work-up and treatment in the hospital. 19:59 ED course: Consulted Dr. Luu who reviewed the EKG as well as the [employer] kdr interrogation report. He recommended starting the patient on amiodarone.. 04/07 15:53 Order name: Basic Metabolic Panel; Complete Time: 17:31 kdr 04/07 15:53 Order name: CBC with Diff; Complete Time: 17:31 kdr 04/07 15:53 Order name: LFT's; Complete Time: 17:31 kdr 04/07 15:53 Order name: Magnesium; Complete Time: 17:31 kdr 04/07 15:53 Order name: NT PRO-BNP; Complete Time: 17:31 kdr 04/07 15:53 Order name: PT-INR; Complete Time: 17:31 kdr 04/07 15:53 Order name: Troponin HS; Complete Time: 17:31 kdr 04/07 15:53 Order name: XRAY Chest (1 view); Complete Time: 17:31 kdr 04/07 17:33 Order name: Digoxin; Complete Time: 19:03 kdr 04/07 17:35 Order name: LAB Add On bd 04/07 18:17 Order name: Urine Dipstick-Ancillary EDIA 04/07 18:29 Order name: COVID-19 SARS RT PCR (Document "Date of Onset" if Symptomatic) ss 04/07 18:29 Order name: SARS-COV-2 RT PCR EDIA 04/07 15:53 Order name: EKG; Complete Time: 15:54 kdr 04/07 15:53 Order name: Cardiac monitoring; Complete Time: 16:51 kdr 04/07 15:53 Order name: EKG - Nurse/Tech; Complete Time: 16:51 [facility] 04/07 15:53 Order name: IV Saline Lock; Complete Time: 16:51 kdr 04/07 15:53 Order name: Labs collected and sent; Complete Time: 16:51 kdr 04/07 15:53 Order name: O2 Per Protocol; Complete Time: 16:51 kdr 04/07 15:53 Order name: O2 Sat Monitoring; Complete Time: 16:51 kdr Administered Medications: 17:10 Drug: NS 0.9% 500 ml Route: IV; Rate: bolus; Site: left antecubital; ss 18:00 Follow up: IV Status: Completed infusion; IV Intake: 500ml eo2 18:57 Not Given (Physician Discretion): NS 0.9% 1000 ml IV at 1 bolus Per protocol; 1000 mL eo2 bolus 19:56 Drug: amiodarone 150 mg {Note: 2 RN check at bedside with WM Gonzalez.} Volume: 100 ml; al4 Route: IVPB; Infused Over: 10 mins; Site: left antecubital; 20:06 Follow up: Response: No adverse reaction; IV Status: Completed infusion; IV Intake: al4 100ml 20:25 Drug: amiodarone 900 mg, D5W 500 ml {Note: 2 RN check at bedside with WM Gonzalez.} al4 Route: IVPB; Rate: 1 mg/min; Site: left antecubital; Disposition Summary: 04/07/21 19:31 Hospitalization Ordered Hospitalization Status: Inpatient Admission kdr Condition: Serious kdr Problem: an ongoing problem kdr Symptoms: have improved kdr Bed/Room Type: Standard kdr Provider: Shanice Steven(04/07/21 19:36) la1 Location: Intensive Care Unit(04/07/21 20:10) cg Room Assignment: 4-(04/07/21 20:10) cg Diagnosis - Hypotension, unspecified kdr - Palpitations kdr - Unspecified atrial fibrillation kdr - Insulin-dependent diabetes kdr Forms: - Medication Reconciliation Form kdr - SBAR form kdr Signatures: Dispatcher [employer] EDMS Gianfranco Myers MD MD kdr Lola Carrillo RN RN ss Tremayne Martínez, HAIRSPRING STAKER-C [employer]PRING STAKER-Cla1 Jeanette Mckeon RN RN cg Ed Snow al4 Alissa Cruz RN RN eo2 Corrections: (The following items were deleted from the chart) 19:36 19:31 Ihsan Fields kdr la1 20:10 19:31 Telemetry/MedSurg (Inpatient) kdr cg 20:10 19:31 kdr cg
[2021-04-07] MEDS ORDERED: D5W 100 ML IV ONE (19:47)
[2021-04-07] MEDS ORDERED: AMIODARONE HCL 150 MG/3 ML INJ IV ONE (19:47)
--- NOTE | 2021-04-07 19:53 | P.HP ---
Certification for Inpatient Patient admitted to: Inpatient With expected LOS: >2 Midnights Patient will require the following post-hospital care: None Practitioner: I am a practitioner with admitting privileges, knowledge of patient current condition, hospital course, and medical plan of care. Services: Services provided to patient in accordance with Admission requirements found in Title 42 Section 412.3 of the Code of Federal Regulations Patient History Date of Service: 04/07/21 Primary Care Provider: Dr. Stark, Dr. Heath cardiology Reason for admission: A. fib RVR History of Present Illness: 76-year-old female with history of chronic systolic congestive heart failure, atrial fibrillation on chronic anticoagulation therapy, CKD 4, diabetes mellitus type 2insulin-dependent, hypertension, hyperlipidemia seizure disorder presents the emergency department for palpitations and blood pressure problem. Patient reports ever since her medications were changed about 2 months ago [facility] she has had frequent palpitations, patient had multiple bouts of atrial arrhythmia in the emergency department with rates up to 150, and patient's heart rate spikes blood pressure drops and documentable pressures of 87 over 30s. Patient's heart rate did stabilize and vitals improved but it was noted to have been pretty frequently for this reason cardiology was consulted while patient was in the emergency department whose recommendation was to start patient on an amiodarone drip. Patient did previously take amiodarone in the past. Patient does have pacemaker defibrillator in place. Pacemaker was interrogated did not identify any runs of VF or VT. Will need to admit to ICU for amiodarone drip and further evaluation/management. Labs in the emergency department were significant for hemoglobin 11 hematocrit 33 creatinine 1.8 GFR 26 which is similar to baseline glucose 216 BNP 4944 digoxin level 0.1 although patient is no longer taking digoxin. Covid test pending chest x-ray shows no acute findings. Allergies No Known Allergies Allergy (Verified 07/19/19 02:02) Home Medications: Atorvastatin Calcium 40 mg PO BEDTIME 08/27/15 PHENYTOIN ER Cap [Dilantin ER Cap*] 200 mg PO BEDTIME 08/27/15 Furosemide [Lasix*] 40 mg PO BID 04/07/16 Phenytoin Sodium Extended [Dilantin] 100 mg PO DAILY 07/16/19 Amlodipine [Norvasc*] 5 mg PO DAILY 03/11/21 Amox/Clavulanate [Augmentin 500-125 mg Tab*] 500 mg PO BID #14 tab 03/11/21 Apixaban [Eliquis *] 5 mg PO BID 03/11/21 Hydralazine HCl [Apresoline] 50 mg PO Q8H 03/11/21 Insulin NPH Human Isophane [Humulin N] 20 unit SQ BID 03/11/21 Insulin Regular, Human [Humulin R U-500 Kwikpen] 10 unit SQ TID 03/11/21 Metoprolol Succinate [Toprol Xl*] 50 mg PO BID 6AM 6PM #60 tab 03/11/21 Pantoprazole [Protonix Tab*] 40 mg PO DAILY 03/11/21 - Past Medical/Surgical History Diabetic: Yes -: seizures -: afib -: iddm -: hypertension -: hyperlipidemia -: chf -: bladder infection -: cad -: neuropathy -: w?EF 20-25% -: defibrilator -: PNA -: defib/pacemaker placement x2 -: exploratory lap -: appendectomy Psychosocial/ Personal History: Patient lives patient lives at home with family - Family History Father -: Lung disease Mother -: Heart disease, Hypertension, Diabetes Sister -: Diabetes Brother -: Diabetes, Kidney disease - Social History Alcohol use: No CD- Drugs: No Caffeine use: Yes Place of Residence: Home Review of Systems 10-point ROS is otherwise unremarkable Cardiovascular: Chest Pain, Palpitations, Light Headedness, As per HPI Physical Examination - Physical Exam General: Alert, In no apparent distress, Oriented x3, Obese HEENT: Atraumatic, PERRLA, Mucous membr. moist/pink, EOMI, Sclerae nonicteric Neck: Supple, 2+ carotid pulse no bruit, No LAD, Without JVD or thyroid abnormality Respiratory: Clear to auscultation bilaterally, Normal air movement Cardiovascular: Normal S1 S2, Irregular heart rate/rhythm (Paced, A. fib), Systolic murmur Capillary refill: <2 Seconds Gastrointestinal: Normal bowel sounds, No tenderness Musculoskeletal: No tenderness Integumentary: No rashes Neurological: Normal gait, Normal speech, Normal strength at 5/5 x4 extr, Normal tone, Normal affect Lymphatics: No axilla or inguinal lymphadenopathy - Studies Laboratory Data (last 24 hrs) 04/07/21 16:15: PT 13.3 H, INR 1.15 04/07/21 16:15: WBC 7.10, Hgb 11.0 L, Hct 33.0 L, Plt Count 228 04/07/21 16:15: Sodium 139, Potassium 4.2, BUN 54 H, Creatinine 1.88 H, Glucose 216 H, Magnesium 2.1, Total Bilirubin 0.1 L, AST 16, ALT 18, Alkaline Phosphatase 124 H Assessment and Plan - Plan Assessment: A. fib RVR with hypotensionhistory A. fib on chronic anticoagulation Chronic systolic congestive heart failure CKD 4 Diabetes mellitus type 2insulin-dependent Hypertension Hyperlipidemia Seizure disorder Plan: A. fib RVR with hypotensionhistory A. fib on chronic anticoagulation: Cardiology was contacted while patient was in the emergency department recommended amiodarone drip which has been initiated. Will admit to the ICU for further evaluation and management. Patient currently takes metoprolol succinate 100 mg daily has been on amiodarone in the past. Continue Eliquis, monitor on telemetry. Chronic systolic congestive heart failure: Continue home medications. Cardiology consulted. CKD 4: Stable, consult nephrology for worsening. Diabetes mellitus type 2insulin-dependent: ACH S Accu-Chek, sliding scale insulin Hypertension: On amiodarone drip, will evaluate other home medications and start as appropriate. Hyperlipidemia: Continue atorvastatin 40 Seizure disorder: Obtain and continue medications last seizure 1 month ago. DVT PPX: Continue Eliquis Code status: Full Discharge Plan: Home Plan to discharge in: 48 Hours - Advance Directives Does patient have a Living Will: No Does patient have a Durable POA for Healthcare: No - Code Status/Comfort Care Code Status Assessed: Yes (Full code) Critical Care: No Time Spent Managing Pts Care (In Minutes): 55
[2021-04-07] MEDS: INSULIN -REGULAR HUMAN 50 UNIT/0.5 ML ML SQ SCH (22:12)
[2021-04-07] MEDS ORDERED: ONDANSETRON 4 MG/2 ML VIAL IV PRN (22:12)
[2021-04-07] MEDS ORDERED: AMIODARONE HCL 900 MG in Dextrose 5%-Water 482 ML IV SCH (22:12)
[2021-04-07] MEDS: ATORVASTATIN 40 MG TAB PO SCH (23:02)
[2021-04-07] MEDS: APIXABAN 5 MG TABLET PO SCH (23:02)
[2021-04-08] MEDS ORDERED: LIDOCAINE 1% MPF 5 ML VIAL ONE (05:06)
[2021-04-08 05:09] LABS: Absolute Lymphocytes (CBC) 2.1 K/uL (0.7-4.9); Hematocrit 30.1 % (36.0-45.0); Lymphocytes % 28.2 % (15.3-44.8); MPV 10.2 fL (7.6-11.3); RBC Red Blood Cell Count 3.26 M/uL (3.86-4.86)
[2021-04-08 05:40] LABS: Albumin 2.6 g/dL (3.4-5.0); Bilirubin Total 0.2 mg/dL (0.2-1.0); Magnesium 2.1 mg/dL (1.8-2.4); Potassium 3.9 mmol/L (3.5-5.1); Protein, Total 6.4 g/dL (6.4-8.2); Thyroid Stimulating Hormone 0.647 uIU/mL (0.360-3.740)
[2021-04-08] MEDS: FUROSEMIDE 20 MG TABLET PO SCH (08:26)
[2021-04-08] MEDS: APIXABAN 5 MG TABLET PO SCH ×2 (08:27→20:09)
[2021-04-08] MEDS: INSULIN -REGULAR HUMAN 50 UNIT/0.5 ML ML SQ SCH ×4 (08:27→21:09)
[2021-04-08] MEDS ORDERED: AMIODARONE HCL 200 MG TAB PO SCH (09:00)
--- NOTE | 2021-04-08 12:17 | P.DS ---
Admission Date: 04/07/21 Discharge Date: 04/08/21 Primary Care Provider: Dr. Stark, Dr. Heath cardiology Disposition: ROUTINE DISCHARGE Reason for Admission: Lauryn. alejandro RVR Brief History of Present Illness: History of Present Illness: 76-year-old female with history of chronic systolic congestive heart failure, atrial fibrillation on chronic anticoagulation therapy, CKD 4, diabetes mellitus type 2insulin-dependent, hypertension, hyperlipidemia seizure disorder presents the emergency department for palpitations and blood pressure problem. Patient reports ever since her medications were changed about 2 months ago [facility] she has had frequent palpitations, patient had multiple bouts of atrial arrhythmia in the emergency department with rates up to 150, and patient's heart rate spikes blood pressure drops and documentable pressures of 87 over 30s. Patient's heart rate did stabilize and vitals improved but it was noted to have been pretty frequently for this reason cardiology was consulted while patient was in the emergency department whose recommendation was to start patient on an amiodarone drip. Patient did previously take amiodarone in the past. Patient does have pacemaker defibrillator in place. Pacemaker was interrogated did not identify any runs of VF or VT. Will need to admit to ICU for amiodarone drip and further evaluation/management. Labs in the emergency department were significant for hemoglobin 11 hematocrit 33 creatinine 1.8 GFR 26 which is similar to baseline glucose 216 BNP 4944 digoxin level 0.1 although patient is no longer taking digoxin. Covid test pending chest x-ray shows no acute findings. Hospital Course: Patient was admitted with Monico allen with RVR. She was initiated on amiodarone drip. She spontaneously converted to sinus rhythm. She was evaluated by cardiology and recommended to continue on amiodarone as outpatient. She is currently off digoxin. Her metoprolol dose was reduced. She will follow with cardiology Dr. De Leon in 1 week. Patient remained stable she denies any chest pain or shortness of breath. She is ambulating with no issues. She will be discharged home today with new medication regimen. Her dose of Eliquis was continued unchanged Physical Exam General: Alert, In no apparent distress, Oriented x3, Obese HEENT: Atraumatic, PERRLA, Mucous membr. moist/pink, EOMI, Sclerae nonicteric Neck: Supple, 2+ carotid pulse no bruit, No LAD, Without JVD or thyroid abnormality Respiratory: Clear to auscultation bilaterally, Normal air movement Cardiovascular: Normal S1 S2, regularly paced rhythm, palpable AICD in situ Capillary refill: <2 Seconds Gastrointestinal: Normal bowel sounds, No tenderness Musculoskeletal: No tenderness Integumentary: No rashes Neurological: Normal gait, Normal speech, Normal strength at 5/5 x4 extr, Normal tone, Normal affect Lymphatics: No axilla or inguinal lymphadenopathy Vital Signs/Physical Exam: Temp Pulse Resp BP Pulse Ox 97.1 F 76 20 99/67 100 04/08/21 08:00 04/08/21 11:00 04/08/21 11:00 04/08/21 11:00 04/08/21 11:00 Laboratory Data at Discharge: WBC 7.40 K/uL (4.3-10.9) 04/08/21 04:33 Hgb 10.3 g/dL (12.0-15.0) L 04/08/21 04:33 Hct 30.1 % (36.0-45.0) L 04/08/21 04:33 Plt Count 210 K/uL (152-406) 04/08/21 04:33 PT 13.3 SECONDS (9.5-12.5) H 04/07/21 16:15 INR 1.15 04/07/21 16:15 Sodium 139 mmol/L (136-145) 04/08/21 04:33 Potassium 3.9 mmol/L (3.5-5.1) 04/08/21 04:33 BUN 52 mg/dL (7-18) H 04/08/21 04:33 Creatinine 1.89 mg/dL (0.55-1.3) H 04/08/21 04:33 Glucose 251 mg/dL (74-106) H 04/08/21 04:33 Magnesium 2.1 mg/dL (1.8-2.4) 04/08/21 04:33 Total Bilirubin 0.2 mg/dL (0.2-1.0) 04/08/21 04:33 AST 14 U/L (15-37) L 04/08/21 04:33 ALT 17 U/L (12-78) 04/08/21 04:33 Alkaline Phosphatase 106 U/L (45-117) 04/08/21 04:33 Home Medications: Atorvastatin Calcium 40 mg PO BEDTIME 08/27/15 Furosemide [Lasix*] 20 mg PO DAILY 04/07/16 Apixaban [Eliquis *] 5 mg PO BID 03/11/21 Insulin NPH Human Isophane [Humulin N] 20 unit SQ BID 03/11/21 Insulin Regular, Human [Humulin R U-500 Kwikpen] 10 unit SQ TID 03/11/21 Pantoprazole [Protonix Tab*] 40 mg PO DAILY 03/11/21 OXcarbazepine [Oxcarbazepine] 150 mg PO 04/07/21 Amiodarone HCl [Cordarone*] 400 mg PO DAILY #37 tab 04/08/21 Metoprolol Succinate [Toprol Xl*] 50 mg PO BID #60 tab 04/08/21 New Medications: Amiodarone HCl [Cordarone*] 400 mg PO DAILY #37 tab Metoprolol Succinate [Toprol Xl*] 50 mg PO BID #60 tab Diet: ADA Activity: Ad royal Followup: Ross Graf MD [ACTIVE - CAN ADMIT] - 1 Week Santiago Luo MD [Primary Care Provider] - 1 Week Time spent managing pt's care (in minutes): 35
--- NOTE | 2021-04-08 13:06 | EKG ---
Test Date: 2021-04-07 Test Time: 16:17:21 Catalyst Supervisor: AGUSTINA Martinez MEASUREMENT RESULTS: Intervals: Rate: 110 [place]: 160 QRSD: 156 QT: 370 QTc: 500 [place]: P: 64 [place]: 160 QRS: 62 T: 262 INTERPRETIVE STATEMENTS: Undetermined rhythm Left bundle branch block Abnormal ECG Compared to ECG 04/07/2021 16:16:50 Left bundle-branch block now present Right bundle-branch block no longer present Electronically Signed On 04-08-21 13:03:04 HAND CANDLE MOLDER by Ross Graf
--- NOTE | 2021-04-08 13:06 | EKG ---
Test Date: 2021-04-07 Test Time: 16:16:50 Audit Mgr: AGUSTINA Martinez MEASUREMENT RESULTS: Intervals: Rate: 116 NV: 144 QRSD: 178 QT: 432 QTc: 600 [place]: P: 66 NV: 144 QRS: 264 T: 68 INTERPRETIVE STATEMENTS: Undetermined rhythm Right bundle branch block Abnormal ECG Compared to ECG 03/20/2021 20:07:17 Right bundle-branch block now present Electronically Signed On 04-08-21 13:03:06 CONTROLS TECHNICIAN by Ross Graf
[2021-04-08] MEDS ORDERED: NA CHLORIDE 0.9% 250 ML ONE (15:30)
--- NOTE | 2021-04-08 16:13 | CON ---
Date of Consultation: 04/08/[address] Steven on 04/07/2021 for atrial fibrillation. I saw the patient on 04/08/2021. History Of Present Illness: Ms. Simpson is 76, has known atrial fibrillation that has been very resist ant to treatment in the past. She has a history of anxiety, coronary artery disease, neuropathy, atr ial fibrillation, congestive heart failure, diabetes, hypertension, dyslipidemia, and seizure disorde r. She came in with rapid atrial fibrillation with slight hypotension. She was placed on IV amiodar one by and she is today in paced rhythm. She does have a history of pacemaker and def ibrillator in the past for an ejection fraction of 35% in June 2019. She follows up at [facility]. Has nor mal coronaries. Allergies: TO AMOXICILLIN, CIPRO, AND AUGMENTIN. Review of Systems: Negative. Social History: Negative. Family History: Negative. Medications: At home include Eliquis, metoprolol, Protonix, digoxin, Dilantin, Neurontin, Lipitor an d insulin. Physical Examination: Vital Signs: Her rate today is paced rhythm at 70. HEENT: Negative. Neck: Supple. No bruit. Chest: Clear. Cardiac: Normal. Abdomen: Benign. Extremities: Revealed no clubbing, cyanosis, or edema. Diagnostic Data: Creatinine is 1.89, hemoglobin 10.3. Glucose of 251. BNP is 4944. Impression And Plan: 1.Atrial fibrillation with rapid ventricular response. Had failed beta blockers and Eliquis. We wi ll put her on p.o. amiodarone 400 b.i.d., decrease her metoprolol dose by half. Stop her digoxin, co ntinue her Eliquis. She can go home whenever it is okay with Dr. Steven and she will follow up wit h her prototype model maker in the near future. If her atrial fibrillation reoccurs on amiodarone, we will co nsider cardioversion and if that fails we should consider ablation. Her other problems include mild anemia. 2.Chronic systolic congestive heart failure, ejection fraction is 35%, on a pacemaker defibrillator and she is on appropriate therapy. 3.Renal insufficiency stage 3. 4.History of anxiety. 5.History of neuropathy. 6.History of diabetes, well controlled. 7.History of hypertension, well controlled. 8.History of dyslipidemia, well controlled. 9.History of seizure. The patient can go home with above instructions as stated earlier. PRAVEEN/CAMERON Voice ID: [id number] Report ID: [id number]
[2021-04-08] MEDS: AMIODARONE HCL 200 MG TAB PO SCH (20:09)
[2021-04-08] MEDS: ATORVASTATIN 40 MG TAB PO SCH (20:09)
[2021-04-08] MEDS: OXcarbazepine 150 MG TAB PO SCH (20:14)
[2021-04-09 04:51] LABS: Absolute Lymphocytes (CBC) 1.5 K/uL (0.7-4.9); Hematocrit 31.8 % (36.0-45.0); Lymphocytes % 21.6 % (15.3-44.8); MPV 10.1 fL (7.6-11.3); RBC Red Blood Cell Count 3.42 M/uL (3.86-4.86)
[2021-04-09 05:17] LABS: Albumin 2.6 g/dL (3.4-5.0); Bilirubin Total 0.2 mg/dL (0.2-1.0); Potassium 4.1 mmol/L (3.5-5.1); Protein, Total 6.5 g/dL (6.4-8.2)
[2021-04-09] MEDS: OXcarbazepine 150 MG TAB PO SCH ×3 (09:00→20:42)
[2021-04-09] MEDS: AMIODARONE HCL 200 MG TAB PO SCH ×2 (09:11→20:42)
[2021-04-09] MEDS: INSULIN -REGULAR HUMAN 50 UNIT/0.5 ML ML SQ SCH ×4 (09:12→21:26)
[2021-04-09] MEDS: FUROSEMIDE 20 MG TABLET PO SCH (09:12)
[2021-04-09] MEDS: APIXABAN 5 MG TABLET PO SCH ×2 (09:12→20:42)
--- NOTE | 2021-04-09 09:33 | P.PN ---
Subjective Date of Service: 04/08/21 Primary Care Provider: Dr. Stark, Dr. Heath cardiology Chief Complaint: A. fib RVR Subjective: No new changes, No C/O voiced (possible dc home after amio gtt today) Physical Examination - Vital Signs Temperature: 97.2 F Blood Pressure: 129/69 Pulse: 88 Respirations: 18 Pulse Ox (%): 96 Assessment And Plan Physician Review: Patient Assessed, Agree with Above Assessment and Plan Physician Review Additional Text: 04/09/21 09:32 Exam General: Alert, In no apparent distress, Oriented x3, Obese HEENT: Atraumatic, PERRLA, Mucous membr. moist/pink, EOMI, Sclerae nonicteric Neck: Supple, 2+ carotid pulse no bruit, No LAD, Without JVD or thyroid abnormality Respiratory: Clear to auscultation bilaterally, Normal air movement Cardiovascular: Normal S1 S2, Irregular heart rate/rhythm (Paced, A. fib), Systolic murmur Capillary refill: <2 Seconds Gastrointestinal: Normal bowel sounds, No tenderness Musculoskeletal: No tenderness Integumentary: No rashes Neurological: Normal gait, Normal speech, Normal strength at 5/5 x4 extr, Normal tone, Normal affect Lymphatics: No axilla or inguinal lymphadenopathy - Studies Laboratory Data (last 24 hrs) 04/07/21 16:15: PT 13.3 H, INR 1.15 04/07/21 16:15: WBC 7.10, Hgb 11.0 L, Hct 33.0 L, Plt Count 228 04/07/21 16:15: Sodium 139, Potassium 4.2, BUN 54 H, Creatinine 1.88 H, Glucose 216 H, Magnesium 2.1, Total Bilirubin 0.1 L, AST 16, ALT 18, Alkaline Phosphatase 124 H Assessment and Plan - Plan Assessment: A. fib RVR with hypotensionhistory A. fib on chronic anticoagulation Chronic systolic congestive heart failure CKD 4 Diabetes mellitus type 2insulin-dependent Hypertension Hyperlipidemia Seizure disorder Plan: A. fib RVR with hypotensionhistory A. fib on chronic anticoagulation: c/w amio gtt - swithc to po amio c/w Eliquis possible dc home today monitor on telemetry. Chronic systolic congestive heart failure: Continue home medications. Cardiology consulted. CKD 4: Stable, consult nephrology for worsening. Diabetes mellitus type 2insulin-dependent: ACH S Accu-Chek, sliding scale insulin Hypertension: On amiodarone drip, will evaluate other home medications and start as appropriate. Hyperlipidemia: Continue atorvastatin 40 Seizure disorder: Obtain and continue medications last seizure 1 month ago. DVT PPX: Continue Eliquis Code status: Full Discharge Plan: Home Plan to discharge in: 48 Hours
[2021-04-09] MEDS ORDERED: NA CHLORIDE 0.9% 500 ML IV ONE (10:31)
--- NOTE | 2021-04-09 11:38 | P.PN ---
Subjective Date of Service: 04/09/21 Primary Care Provider: Dr. Stark, Dr. Heath cardiology Chief Complaint: A. fib RVR Subjective: No new changes (Complain of dizziness upon sitting up or attempt to ambulate Feels fine while lying down Telemetry strip shows patient in sinus rhythm overnight) Physical Examination - Vital Signs Temperature: 97.2 F Blood Pressure: 140/81 Pulse: 85 Respirations: 19 Pulse Ox (%): 96 Assessment And Plan Physician Review: Patient Assessed, Agree with Above Assessment and Plan Physician Review Additional Text: 04/09/21 09:32 Exam General: Alert, In no apparent distress, Oriented x3, Obese HEENT: Atraumatic, PERRLA, Mucous membr. moist/pink, EOMI, Sclerae nonicteric Neck: Supple, 2+ carotid pulse no bruit, No LAD, Without JVD or thyroid abnormality Respiratory: Clear to auscultation bilaterally, Normal air movement Cardiovascular: Normal S1 S2, regular paced rhythm , Systolic murmur Capillary refill: <2 Seconds Gastrointestinal: Normal bowel sounds, No tenderness Musculoskeletal: No tenderness Integumentary: No rashes Neurological: Normal gait, Normal speech, Normal strength at 5/5 x4 extr, Normal tone, Normal affect Lymphatics: No axilla or inguinal lymphadenopathy - Studies Laboratory Data (last 24 hrs) 04/07/21 16:15: PT 13.3 H, INR 1.15 04/07/21 16:15: WBC 7.10, Hgb 11.0 L, Hct 33.0 L, Plt Count 228 04/07/21 16:15: Sodium 139, Potassium 4.2, BUN 54 H, Creatinine 1.88 H, Glucose 216 H, Magnesium 2.1, Total Bilirubin 0.1 L, AST 16, ALT 18, Alkaline Phosphatase 124 H Assessment and Plan - Plan Assessment: A. fib RVR with hypotensionhistory A. fib on chronic anticoagulation Chronic systolic congestive heart failure FELICIA on CKD 4 Diabetes mellitus type 2insulin-dependent Hypertension Hyperlipidemia Seizure disorder Plan: A. fib RVR with hypotensionhistory A. fib on chronic anticoagulation: Continue p.o. amiodarone Continue metoprolol as well as Eliquis Possibility of orthostatic dizziness considered although may still be related to cardiac arrhythmia History of recurrent orthostatic dizziness with arrhythmia at home during previous discharges obtained Might need EP cardiology evaluation -We will do trial of IV fluid bolus and attempt to ambulate patient to see if patient shows A. fib on telemetry strip Chronic systolic congestive heart failure: Stable, hold Lasix for now CKD 4: Creatinine worsening to 2.0, still around baseline, may need nephrology consult Diabetes mellitus type 2insulin-dependent: ACH S Accu-Chek, sliding scale insulin Hypertension: Controlled, continue metoprolol Hyperlipidemia: Continue atorvastatin 40 Seizure disorder: Stable, continue medication DVT PPX: Continue Eliquis Code status: Full Discharge Plan: Home Plan to discharge in: 24 Hours, transfer to floor today 04/09/21 11:36
[2021-04-09] MEDS: ATORVASTATIN 40 MG TAB PO SCH (20:42)
[2021-04-10 00:48] VITALS: BMI 30.8
[2021-04-10 04:47] LABS: Absolute Lymphocytes (CBC) 1.4 K/uL (0.7-4.9); Hematocrit 31.3 % (36.0-45.0); Lymphocytes % 19.8 % (15.3-44.8); MPV 10.1 fL (7.6-11.3); RBC Red Blood Cell Count 3.37 M/uL (3.86-4.86)
[2021-04-10 05:13] LABS: Albumin 2.5 g/dL (3.4-5.0); Bilirubin Total 0.1 mg/dL (0.2-1.0); Potassium 3.9 mmol/L (3.5-5.1); Protein, Total 6.4 g/dL (6.4-8.2)
[2021-04-10] MEDS: FUROSEMIDE 20 MG TABLET PO SCH (08:19)
[2021-04-10] MEDS: APIXABAN 5 MG TABLET PO SCH ×2 (08:19→21:41)
[2021-04-10] MEDS: AMIODARONE HCL 200 MG TAB PO SCH ×2 (08:20→21:41)
[2021-04-10] MEDS: OXcarbazepine 150 MG TAB PO SCH ×2 (08:20→21:42)
[2021-04-10] MEDS: INSULIN -REGULAR HUMAN 50 UNIT/0.5 ML ML SQ SCH ×4 (08:22→21:41)
[2021-04-10] MEDS ORDERED: ALPRAZOLAM 0.5 MG TABLET PO ONE (08:37)
--- NOTE | 2021-04-10 09:54 | P.PN ---
Subjective Date of Service: 04/10/21 Primary Care Provider: Dr. Stark, Dr. Heath cardiology Chief Complaint: A. fib RVR Subjective: No new changes, No C/O voiced Physical Examination - Vital Signs Temperature: 98.4 F Blood Pressure: 133/50 Pulse: 92 Respirations: 11 Pulse Ox (%): 95 Assessment And Plan Physician Review: Patient Assessed, Agree with Above Assessment and Plan Physician Review Additional Text: Exam General: Alert, In no apparent distress, Oriented x3, Obese HEENT: Atraumatic, PERRLA, Mucous membr. moist/pink, EOMI, Sclerae nonicteric Neck: Supple, 2+ carotid pulse no bruit, No LAD, Without JVD or thyroid abnormality Respiratory: Clear to auscultation bilaterally, Normal air movement Cardiovascular: Normal S1 S2, regular paced rhythm , Systolic murmur Capillary refill: <2 Seconds Gastrointestinal: Normal bowel sounds, No tenderness Musculoskeletal: No tenderness Integumentary: No rashes Neurological: Normal gait, Normal speech, Normal strength at 5/5 x4 extr, Normal tone, Normal affect Lymphatics: No axilla or inguinal lymphadenopathy Assessment and Plan Atrial fib with RVR and hypotensionhistory A. fib on chronic anticoagulation Chronic systolic congestive heart failure FELICIA on CKD 4 Diabetes mellitus type 2insulin-dependent Hypertension Hyperlipidemia Seizure disorder Plan: A. fib RVR with hypotension history A. fib on chronic anticoagulation: c/w Metoprolol/Amiodarone/ Eliquis -still symptoms with activity especially on rising -Possibility of orthostatic dizziness although not noted on vitals as well as no change in telemetry strip -May still be related to cardiac arrhythmia -May need EP cardiology evaluation -Follow cardiology plan -will transfer to floor today -She report anxiety since loss of spouse , will dose trial of xanax today Chronic systolic congestive heart failure: Stable, hold Lasix for now FELICIA on CKD 4: Creatinine worsening but stable at 2.0, still around baseline, may need nephrology consult Diabetes mellitus type 2insulin-dependent: ACHS Accu-Chek, sliding scale insulin Hypertension: Controlled, continue metoprolol Hyperlipidemia: Continue atorvastatin 40 Seizure disorder: Stable, continue medication DVT PPX: Continue Eliquis Code status: Full Discharge Plan: Home Plan to discharge in: 24 Hours 04/10/21 09:48 Time Spent Managing PTS Care (In Minutes): 65
[2021-04-10] MEDS: ATORVASTATIN 40 MG TAB PO SCH (21:41)
[2021-04-11] MEDS: AMIODARONE HCL 200 MG TAB PO SCH ×2 (08:45→21:35)
[2021-04-11] MEDS: APIXABAN 5 MG TABLET PO SCH ×2 (08:45→21:35)
[2021-04-11] MEDS: INSULIN -REGULAR HUMAN 50 UNIT/0.5 ML ML SQ SCH ×4 (08:45→21:00)
[2021-04-11] MEDS: FUROSEMIDE 20 MG TABLET PO SCH (08:45)
[2021-04-11] MEDS: OXcarbazepine 150 MG TAB PO SCH ×2 (09:01→21:34)
[2021-04-11] MEDS ORDERED: METOPROLOL TAR 50 MG TAB PO ONE (17:11)
[2021-04-11] MEDS: METOPROLOL XL 50 MG TAB PO SCH (17:24)
[2021-04-11] MEDS: ATORVASTATIN 40 MG TAB PO SCH (21:35)
[2021-04-11] MEDS ORDERED: GLUCAGON 1 MG/VIAL IM PRN (23:28)
[2021-04-11] MEDS ORDERED: D50W 25 GM/50 ML SYRINGE IV PRN (23:28)
--- NOTE | 2021-04-11 23:31 | P.PN ---
Subjective Date of Service: 04/11/21 Subjective: No new changes, No C/O voiced, Improving Review of Systems 10-point ROS is otherwise unremarkable Physical Examination - Vital Signs Temperature: 97.1 F Blood Pressure: 168/73 Pulse: 77 Respirations: 18 Pulse Ox (%): 97 - Physical Exam General: Alert, In no apparent distress, Oriented x3 HEENT: Atraumatic, PERRLA, EOMI Neck: Supple, JVD not distended Respiratory: Clear to auscultation bilaterally, Normal air movement Cardiovascular: Regular rate/rhythm, Normal S1 S2, No murmurs Gastrointestinal: Normal bowel sounds, Soft and benign, Non-distended, No tenderness Musculoskeletal: No tenderness Integumentary: No rashes Neurological: Normal speech, Normal tone, Normal affect Lymphatics: No axilla or inguinal lymphadenopathy - Studies Medications List Reviewed: Yes Assessment & Plan - Problems (Diagnosis) (1) Atrial fibrillation with RVR Current Visit: Yes Status: Acute (2) CHF (congestive heart failure) Onset Date: 09/21/15 Current Visit: No Status: Acute Qualifiers: Qualified Code(s): I50.23 - Acute on chronic systolic (congestive) heart failure (3) Morbid (severe) obesity due to excess calories Current Visit: No Status: Acute (4) Ventricular arrhythmia Current Visit: No Status: Acute (5) CKD (chronic kidney disease) Current Visit: No Status: Chronic (6) Diabetes Current Visit: No Status: Chronic Qualifiers: Diabetes mellitus type: type 2 Diabetes mellitus complication status: without complication (7) Hypertension Current Visit: No Status: Chronic Qualifiers: Hypertension type: essential hypertension Qualified Code(s): I10 - Essential (primary) hypertension - Plan Plan: 1. Continue with amiodarone 2. Continue anti coagulation 3. Strict blood pressure and blood sugar control 4. GI and DVT prophylaxis - Advance Directives Does patient have a Living Will: No Does patient have a Durable POA for Healthcare: No Physician Review: Patient Assessed, Agree with Above Assessment and Plan
[2021-04-12] MEDS ORDERED: ACETAMINOPHEN 325 MG TABLET PO PRN (00:07)
[2021-04-12 01:59] VITALS: O2SAT 97
[2021-04-12] MEDS: METOPROLOL XL 50 MG TAB PO SCH (05:51)
[2021-04-12 06:13] LABS: Absolute Lymphocytes (CBC) 1.8 K/uL (0.7-4.9); Hematocrit 28.8 % (36.0-45.0); Lymphocytes % 23.2 % (15.3-44.8); MPV 10.4 fL (7.6-11.3); RBC Red Blood Cell Count 3.16 M/uL (3.86-4.86)
[2021-04-12 06:26] LABS: Albumin 2.5 g/dL (3.4-5.0); Bilirubin Total 0.2 mg/dL (0.2-1.0); Magnesium 2.1 mg/dL (1.8-2.4); Potassium 4.3 mmol/L (3.5-5.1); Protein, Total 6.3 g/dL (6.4-8.2)
[2021-04-12 06:48] LABS: Thyroid Stimulating Hormone 0.55 uIU/mL (0.360-3.740)
[2021-04-12] MEDS: APIXABAN 5 MG TABLET PO SCH (08:43)
[2021-04-12] MEDS: AMIODARONE HCL 200 MG TAB PO SCH (08:43)
[2021-04-12] MEDS: INSULIN -REGULAR HUMAN 50 UNIT/0.5 ML ML SQ SCH (08:44)
[2021-04-12] MEDS ORDERED: FUROSEMIDE 20 MG TABLET PO SCH (09:00)
[2021-04-12] MEDS ORDERED: OXcarbazepine 150 MG TAB PO SCH (09:00)
[2021-04-12] MEDS ORDERED: NPH (HUMAN) 100 UNITS/ML INSULIN SQ SCH (09:00)
[2021-04-12] MEDS ORDERED: PANTOPRAZOLE 40MG TABLET PO SCH (09:00)
[2021-04-12] MEDS ORDERED: APIXABAN 2.5 MG TABLET PO SCH (09:00)
[2021-04-12 09:35] VITALS: BP 120/54; TEMP 97.1
[2021-04-12] MEDS ORDERED: ATORVASTATIN 40 MG TAB PO SCH (21:00)
== END 2021-04-12 10:43 | disposition home health service (06) | DRG 308 ==
LOC: ER 14:24 → ERHOLD 20:30 → 3RD-ICU 20:54 → 2ND 04-10 18:37
PROVIDERS: ADMIT Internal Medicine; ATTEND Hospitalist
DX: I48.91 Unspecified atrial fibrillation (principal); I50.23 Acute on chronic systolic (congestive) heart failure; I13.0 Hypertensive heart and chronic kidney disease with heart failure and stage 1 through stage 4 chronic kidney disease, or unspecified chronic kidney disease; N18.4 Chronic kidney disease, stage 4 (severe); E11.22 Type 2 diabetes mellitus with diabetic chronic kidney disease; E11.40 Type 2 diabetes mellitus with diabetic neuropathy, unspecified; F41.9 Anxiety disorder, unspecified; E78.5 Hyperlipidemia, unspecified; I49.9 Cardiac arrhythmia, unspecified; I95.9 Hypotension, unspecified; G40.909 Epilepsy, unspecified, not intractable, without status epilepticus; E66.01 Morbid (severe) obesity due to excess calories; I25.2 Old myocardial infarction; Z88.1 Allergy status to other antibiotic agents; Z68.30 Body mass index [BMI] 30.0-30.9, adult; Z79.4 Long term (current) use of insulin; Z79.01 Long term (current) use of anticoagulants; Z79.899 Other long term (current) drug therapy; Z95.810 Presence of automatic (implantable) cardiac defibrillator; Z20.822 Contact with and (suspected) exposure to COVID-19
CPT/HCPCS: 36415; 71045; 80048; 80053; 80076; 80162; 81003; 82607; 82947; 83540; 83605; 83735; 83880; 84439; 84443; 84484; 85025; 85610; 93005; 96361; 96374; 97161; 99285; J0282; J1815; J7030; J7040; J7050; J7060; U0003

== ENCOUNTER 2021-04-12 18:14 | Emergency (ER) | payer OTHER ==
--- OUTSIDE RECORDS SUMMARY | 2021-04-12 18:17 | XMS REPORT | Continuity of Care Document ---
:1945 Author Organization [facility] t Address [address] [place] [address] Care Team Providers Name Role Phone Lauren Lou Primary Care Physician Tommy BURK Attending Clinician Unavailable Kumar SQUIRES Attending Clinician KEVIN EVANS Attending Clinician Unavailable Jazmyne BURK, Lauryn Attending Clinician Unavailable KEVIN EVANS Admitting Clinician Unavailable Payers Payer Name Policy Type Policy Number Effective Date Expiration Date S ource Advance Directives Directive Decision Effective Termination Comments Source Date Date Healthcare Agents on N/A [facility] FileNameRelationshipHealthcare [facility] Agent Medical RelationshipCommunicationGraciela Branch NegreteChildHealth Care [phone] (Mobile) [email or web address] nichelle Pierre BrennanPembina [facility] [phone] (Mobile) [email or web address] Problems Condition Condition Condition Status Onset Resolution Last Treating Co mments Source Name Details Category Date Date Treatment Clinician Date V-tach V-tach Disease Active Univers 1-22 ity of 00:00: [place] 00 Medical Branch GI bleed GI bleed Disease Active Unive rs 1-17 ity of 00:00: [place] [facility] Rectal Rectal Disease Active Overview: Univer s bleeding bleeding 1-17 Formattin ity of 00:00: g of this note Medical might be Branch different from the original. Added automatic ally from request for surgery [id number] Refusal of Refusal of Disease Active 2020-02 U nivers blood blood 2-13 [place] of transfusio [place] 00 Medical patient is patient is Br zenon [employer] Osteopenia Osteopenia Disease Active 2020-02 U lorrieers 1-09 ity of 00:00: [place] 00 Medical [...] 00 Medical Branch Orthostati Orthostati Disease Active 2019 U nivers c c 0-21 ity of hypotensio hypotensio [place] FELICIA (acute FELICIA (acute Disease Active 2018-02 U nivers kidney kidney 0-21 ity of injury) injury) 00:00: [place] 00 Medical Branch Dizzy Dizzy Disease Active 2018-02 Univers spells spells 0-19 ity of 00:00: [place] 00 Medical Branch Acute on Acute on Disease Active Unive rs chronic chronic 9-11 ity of anemia anemia 00:00: [place] 00 Medical Branch Atypical Atypical Disease Active Unive rs chest pain chest pain 5-09 it y of 00:00: [place] 00 Medical Branch Left arm Left arm Disease Active Unive rs pain pain 5-08 ity of 00:00: [place] 00 Medical Branch Arthritis Arthritis Disease Active 2019 Uni vers of lumbar of lumbar 1-07 ity of spine spine 00:00: [place] 00 Medical Branch Degenerati Degenerati Disease Active 2019 U paresh ve ve 1-07 ity of arthritis arthritis 00:[place] lumbar of lumbar 00 Medi sandra spine spine Branch Spondyloli Spondyloli Disease Active 2019 U nivers sthesis, sthesis, 1-07 ity of lumbar lumbar 00:00: [place] region region 00 Medical Branch DDD DDD Disease Active 2019 Univers (degenerat (degenerat 1-07 it y of [...] Univers nausea nausea 2-26 ity of 00:00: [place] [facility] Dysphagia Dysphagia Disease Active 2017-02 Uni vers 2-26 ity of 00:00: Medical Branch Fatty Fatty Disease Active Univers liver liver 5-21 ity of 00:00: [place] [facility] Abnormal Abnormal Disease Active Unive rs LFTs LFTs 5- ity of 00:00: [place] [facility] Multiple Multiple Disease Active Overview: Un araseli renal renal 5- Formattin ity of cysts cysts 00:00: g of this note Medical might be Branch different from the original. Bosniak Type [address] Hyperkalem Hyperkalem Disease Active U nivers ia ia 5- ity of 00:00: [place] [facility] History of History of Disease Active U nivers colon colon 5- ity of polyps polyps 00:00: [place] [facility] Branch History of History of Disease Active U nivers pulmonary pulmonary 2-17 ity of embolism embolism 00:00: [place] [facility] Branch ICD ICD Disease Active Univers (implantab (implantab 2-17 it y of le le 00:00: [place] cardiovert cardiovert 00 Me dical er-defibri er-defibri Br anch llator) in llator) in place place Atrial Atrial Disease Active Univers fibrillati fibrillati 1-16 it y of on on 00:00: [address] Branch Syncope Syncope Disease Active Univers 1-15 ity of 00:: [place] [facility] Branch DM DM Disease Active Univers (diabetes (diabetes 8-31 ity of mellitus), mellitus), [place] type 2 type 2 00 Medical with renal with renal Br anch complicati complicati ons ons Anxiety Anxiety Disease Active Univers ity of [facility] CKD CKD Disease Active Univers (chronic (chronic ity of kidney kidney [place] disease) disease) Medica l stage 4, stage 4, Branch GFR 15-29 GFR 15-29 ml/min ml/min Epilepsy Epilepsy Disease Active Unive rs ity of [facility] Esophageal Esophageal Disease Active U nivers reflux reflux ity of [facility] HLD HLD Disease Active Univers (hyperlipi (hyperlipi it y of demia) demia) [facility] HTN HTN Disease Active Univers (hypertens (hypertens it y of ion) ion) [facility] 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 [facility] ASH[facility]N Disease Active Univers (obstructi (obstructi it y of ve sleep ve sleep [place] apnea) apnea) Medical Branch Allergies, Adverse Reactions, Alerts Allergy Allergy Status [...] INGREDI 2-13 ity of 00:00: [place] 00 [facility] Branch Social History Social Habit Start Date Stop Date Quantity Comments Source Exposure to Not sure [facility] SARS-CoV-2 [facility] (event) Branch Alcohol intake 2021-03-29 2021-03-29 Current University of 00:00:00 00:00:00 non-drinker of [facility] alcohol Branch (finding) Tobacco Comment 2021-03-07 2021-03-07 exposed to "a Univer sity of 00:00:00 00:00:00 lot" of passive [place] Med ical smoke from Branch Tobacco use and 2019-12-09 2019-12-09 Never used Universit y of exposure 00:00:00 00:00:00 [facility] Sex [birth year] Universit y of 00:00:00 00:00:00 [facility] Smoking Status Start Date Stop Date Source Never smoker [facility] Branch Medications Ordered Filled Start Stop Current Ordering Indication Dosage Frequency Signature Comments Components Source Medication Medication Date Date Medication? Clinician (SIG) Name Name OXcarbazepi Yes [id number] 150mg Take 1 Univers ne 150 mg 2-09 tablet by ity o f tablet 00:00: mouth 2 [place] 00 (two) Medical times Branch daily. After 1 week take 2 PO BID, then in 1 week 3 PO BID and call office for further instructio ns. OXcarbazepi 2021-0 Yes [id number] 150mg Take 1 Univers ne 150 mg 2-09 tablet by ity o f tablet 00:00: mouth 2 [place] 00 (two) Medical times Branch daily. After 1 week take 2 PO BID, then in 1 week 3 PO BID and call office for further instructio ns. phenytoin 2021- Yes [id number] 100mg Take 1 Univers Extended 03-30-24 capsule by ity of 100 mg 00:00: 05:59 mouth [place] capsule 00 :00 daily for Medical 14 days. Branch phenytoin 2021- Yes [id number] 100mg Take 1 Univers Extended 2-10 21-24 capsule by ity of 100 mg 00:00: 05:59 mouth [place] capsule 00 :00 daily for Medical 14 days. Branch metoprolol 0 Yes 100mg Take 100 Un araseli tartrate 2-02 mg by ity of 100 mg 15:47: mouth 2 [place] tablet 48 (two) Medical times Branch daily. metoprolol 0 Yes 100mg Take 100 Un araseli tartrate 2-02 mg by ity of 100 mg 15:47: mouth 2 [place] tablet 48 (two) Medical times Branch daily. insulin NPH 2021- Yes [id number] inject 15 Univers (HUMULIN N 03-18 03-26 Units ity of NPH U-100 00:00: 04:59 [place] INSULIN) 00 :00 skin every Medic al 100 unit/mL morning Branc h injection for 28 days, THEN 11 Units every evening for 28 days. insulin NPH 2021- Yes [id number] inject 15 Univers (HUMULIN N 03-18 03-26 Units ity of NPH U-100 00:00: 04:59 [place] INSULIN) 00 :00 skin every Medic al 100 unit/mL morning Branc h injection for 28 days, THEN 11 Units every evening for 28 days. furosemide Yes [id number] 20mg Take 1 Univers 20 mg 1-27 tablet by ity of tablet 00:00: mouth [place] 00 daily. Medical Branch insulin NPH Yes [id number] 11U inject 11 Univers (NOVOLIN N 1-27 Units ity of NPH U-100 00:00: under the [place] INSULIN) 00 skin every Medic al 100 unit/mL evening. Bran ch injection levETIRAcet Yes [id number] 500mg Take 1 Univers am 500 mg 1-27 tablet by ity o f tablet 00:00: mouth 2 [place] 00 (two) Medical times Branch daily. furosemide Yes [id number] 20mg Take 1 Univers 20 mg 1-27 tablet by ity of tablet 00:00: mouth [place] 00 daily. Medical Branch insulin NPH Yes [id number] 11U inject 11 Univers (NOVOLIN N 1-27 Units ity of NPH U-100 00:00: under the [place] INSULIN) 00 skin every Medic al 100 unit/mL evening. Bran ch injection levETIRAcet Yes [id number] 500mg Take 1 Univers am 500 mg 1-27 tablet by ity o f tablet 00:00: mouth 2 [place] 00 (two) Medical times Branch daily. pantoprazol Yes [id number] 40mg Take 1 Univers e 40 mg EC 1-21 tablet by ity of tablet 00:00: mouth [place] 00 daily. Medical Branch pantoprazol Yes [id number] 40mg Take 1 Univers e 40 mg EC 1-21 tablet by ity of tablet 00:00: mouth [place] 00 daily. Medical Branch apixaban 2020-02 Yes 5mg Take 1 Univers (ELIQUIS) 5 2-14 tablet by ity of mg tablet 00:00: mouth 2 [place] 00 (two) Medical times Branch daily. atorvastati 2020-02 Yes [id number] 40mg Take 1 Univers n 40 mg 2-14 tablet by ity of tablet 00:00: mouth at [place] 00 bedtime. Medical Branch insulin 2020-02 Yes 8U inject 8 Univer s regular 2-14 Units ity of human 00:00: under the [place] (NOVOLIN R 00 skin Medical REGULAR daily. Branch U-100 Daily at [facility]) 100 noon unit/mL injection apixaban 2020-02 Yes 5mg Take 1 Univers (ELIQUIS) 5 2-14 tablet by ity of mg tablet 00:00: mouth 2 [place] 00 (two) Medical times Branch daily. atorvastati 2020-02 Yes [id number] 40mg Take 1 Univers n 40 mg 2-14 tablet by ity of tablet 00:00: mouth at [place] 00 bedtime. Medical Branch insulin 2020-02 Yes 8U inject 8 Univer s regular 2-14 Units ity of human 00:00: under the [place] (NOVOLIN R 00 skin Medical REGULAR daily. Branch U-100 Daily at [facility]) 100 noon unit/mL injection Blood-Gluco Yes Check Unive rs se Meter 5-15 glucose ity of Kit 00:00: once daily [place] 00 before Medical breakfast; Branch Diagnosis code E11.9 blood sugar Yes Check Unive rs diagnostic 5-15 glucose ity of (BLOOD 00:00: once daily [place] GLUCOSE 00 before Medical TEST) strip breakfast; Br anch Diagnosis code E11.9 Lancets Yes Check Univers Misc 5-15 glucose ity of 00:00: once daily [place] 00 before Medical breakfast; Branch Diagnosis code E11.9 Blood-Gluco Yes Check Unive rs se Meter 5-15 glucose ity of Kit 00:00: once daily [place] 00 before Medical breakfast; Branch Diagnosis code E11.9 blood sugar Yes Check Unive rs diagnostic 5-15 glucose ity of (BLOOD 00:00: once daily [place] GLUCOSE 00 before Medical TEST) strip breakfast; Br anch Diagnosis code E11.9 Lancets Yes Check Univers Misc 5-15 glucose ity of 00:00: once daily [place] 00 before Medical breakfast; Branch Diagnosis code E11.9 Immunizations Ordered Filled Immunization Date Status Comments Sour e Immunization Name Name SARS-COV-2 COVID-19 2021-01-31 Completed Unive rsity of MODERNA BOOSTER 00:00:00 [facility] ica VACCINE Branch SARS-COV-2 COVID-19 2021-01-31 Completed Unive rsity of MODERNA BOOSTER 00:00:00 [facility] [place] VACCINE Branch Influenza Virus 2020-12-03 Completed Universit y of Vaccine,quad 00:00:00 [place] Medica l Im,preserve Free Branch 65+ Pneumococcal 2020-12-03 Completed [place] o f Polysaccharide, 00:00:00 [facility] [place] PPSV23 (PNEUMOVAX) Branch Influenza Virus 2020-12-03 Completed Universit y of Vaccine,quad 00:00:00 [place] Medica l Im,preserve Free Branch 65+ Pneumococcal 2020-12-03 Completed University o f Polysaccharide, 00:00:00 [place] [facility] ica PPSV23 (PNEUMOVAX) Branch SARS-COV-2 COVID-19 2020-04-26 Completed Unive rsity of MODERNA VACCINE 00:00:00 [place] [facility] ica Branch SARS-COV-2 COVID-19 2020-04-26 Completed Unive rsity of MODERNA VACCINE 00:00:00 [facility] ica Branch SARS-COV-2 COVID-19 2020-03-29 Completed Unive rsity of MODERNA VACCINE 00:00:00 [facility] [place] Branch SARS-COV-2 COVID-19 2020-03-29 Completed Unive rsity of MODERNA VACCINE 00:00:00 [facility] [place] Branch Pneumococcal 13 2019-12-19 Completed Universit y of Conjugate, PCV13 00:00:00 [facility] dical (Prevnar 13) Branch Pneumococcal 13 2019-12-19 Completed Universit y of Conjugate, PCV13 00:00:00 [facility] dical (Prevnar 13) Branch Influenza Virus 2019-11-22 Completed Universit y of Vaccine Recomb Quad 00:00:00 [place] Medical IM, Preserv and ABX Branc h Free 18-64 YRS Influenza Virus 2019-11-22 Completed Universit y of Vaccine Recomb Quad 00:00:00 [place] Medical IM, Preserv and ABX Branc h Free 18-64 YRS HEP B, Adult Dosage 2018-03-25 Completed Unive rsity of 00:00:00 [facility] HEP B, Adult Dosage 2018-03-25 Completed Unive rsity of 00:00:00 [facility] HEP B, Adult Dosage 2017-10-10 Completed Unive rsity of 00:00:00 [facility] HEP B, Adult Dosage 2017-10-10 Completed Unive rsity of 00:00:00 [facility] HEP B, Adult Dosage 2017-09-05 Completed Unive rsity of 00:00:00 [facility] HEP B, Adult Dosage 2017-09-05 Completed Unive rsity of 00:00:00 [facility] Pneumococcal 13 2015-02-19 Completed Universit y of Conjugate, PCV13 00:00:00 [facility] dical (Prevnar 13) Branch Pneumococcal 13 2015-02-19 Completed Universit y of Conjugate, PCV13 00:00:00 [facility] dical (Prevnar 13) Branch Pneumococcal 2011-02-19 Completed [place] o f Polysaccharide, 00:00:00 [place] Med ical PPSV23 (PNEUMOVAX) Branch Pneumococcal 2011-02-19 Completed [place] o f Polysaccharide, 00:00:00 [place] Med ical PPSV23 (PNEUMOVAX) Branch Procedures This patient has no known procedures. Encounters Start End Encounter Admission Attending Care Care Encounter Source Date/Time Date/Time Type Type Clinicians Facility Department ID 2021-04-12 2021-04-12 Nurse YANA Sanders [id number] 2013 [facility] 00:00:00 00:00:00 Triage Luis Alberto RENEE [id number] it y of [facility] [id number] [place] [id number] [address] 2021-04-07 2021-04-07 Telephone Kumar MTJENNI [id number] [facility] 00:00:00 00:00:00 [id number] Deysi mcdonough PROFESSIO [id number] Mn dical NAL 059 Branch [facility] 2021-03-07 2021-03-10 Outpatient X ANUJ EVANS [facility] SAMI [id number] Univers 08:28:00 14:20:00 ity of [facility] 2020-05-20 2020-05-20 Telephone YANA Samano [id number] 00:00:00 00:00:00 Teri RENEE [id number] [facility] [id number] Results This patient has no known results.
--- NOTE | 2021-04-12 20:08 | RAD REPORT ---
EXAM DESCRIPTION: CT - Head Brain Wo Cont - 04/12/2021 7:55 pm CLINICAL HISTORY: Dizziness;Weakness COMPARISON: Abdomen Pelvis W Contrast dated 12/31/2019Head Brain Wo Cont dated 03/20/2021 TECHNIQUE: Axial 5 mm thick images of the head were obtained without IV contrast. All CT scans are performed using dose optimization technique as appropriate and may include automated exposure control or mA/KV adjustment according to patient size. FINDINGS: No intracranial hemorrhage, mass, edema or shift of mid-line structures. No acute cortical based infarction. No cortical edema or sulcal effacement. Atrophy and chronic ischemic pattern match es the March 20 study. Physiologic calcifications are present. No abnormal extra-axial fluid collec tions. Ventricles are in proportion to volume loss. Mastoid air cells and visualized portions of the paranasal sinuses are clear. No acute bony findings. IMPRESSION: Negative non-contrast CT head examination for acute finding. Exam is similar to March 20 study. Chronic ischemic changes can mask nonhemorrhagic acute infarction. MR brain followup can be obtained if there is ongoing concern for acute ischemia.
[2021-04-12 20:09] LABS: Protime INR 1.4
[2021-04-12 20:11] LABS: Hematocrit 32.9 % (36.0-45.0); Lymphocytes % 8.7 % (15.3-44.8); MPV 10.4 fL (7.6-11.3); RBC Red Blood Cell Count 3.59 M/uL (3.86-4.86)
--- NOTE | 2021-04-12 20:11 | RAD REPORT ---
EXAM DESCRIPTION: RAD - Chest Single View - 04/12/2021 7:50 pm CLINICAL HISTORY: weakness COMPARISON: Portable April 07 TECHNIQUE: AP portable chest image was obtained 04/12/2021 7:50 pm . FINDINGS: Lung volumes are low. No peripheral mass or consolidation. Interstitial pattern is promine nt but not clearly different. Defibrillator is in place. Heart and vasculature are normal. No measura ble pleural effusion and no pneumothorax. No acute bony abnormality seen. No acute aortic findings sommers spected. IMPRESSION: Chronic interstitial lung pattern similar to comparison. Severity of chronic pattern could mask early edema or infiltrate.
[2021-04-12 20:25] LABS: BUN Blood Urea Nitrogen 53 mg/dL (7-18); Bicarbonate 27 mmol/L (21-32); Glucose Level 214 mg/dL (74-106); Lipase 92 U/L (73-393); Potassium 4.1 mmol/L (3.5-5.1); Sodium Level 139 mmol/L (136-145)
[2021-04-12 20:43] LABS: ALT/SGPT 21 U/L (12-78); AST/SGOT 14 U/L (15-37); Alkaline Phosphatase 126 U/L (45-117); Bilirubin Total 0.2 mg/dL (0.2-1.0); Magnesium 2.1 mg/dL (1.8-2.4); NT PRO-BNP 7832 pg/mL (<450); Protein, Total 7.5 g/dL (6.4-8.2)
[2021-04-12 20:51] LABS: Bilirubin Direct < 0.1 mg/dL (0-0.2); Blood Morphology Comment NOT SEEN (NOT SEEN); Platelet Estimate ADEQ; White Blood Cell Scan OK (OK)
[2021-04-12] MEDS ORDERED: ONDANSETRON 4 MG/2 ML VIAL ONE (21:02)
[2021-04-12] MEDS ORDERED: FAMOTIDINE 20 MG/2 ML VIAL IV ONE (21:02)
[2021-04-12 22:03] LABS: Urine Blood 1+ (Negative); Urine Glucose Negative (Negative); Urine Protein 3+ (Negative); Urine pH 6.5 (5.0-7.0)
--- NOTE | 2021-04-12 23:25 | EDPHYS ---
Physician Documentation [facility] Name: Teena Simpson Age: 76 yrs Sex: Female : 1945 Arrival Date: 04/12/2021 Time: 18:15 Bed 8 Private MD: Santiago Lou ED Physician Warren Pitts HPI: 04/12 19:38 This 76 yrs old Female presents to ER via Wheelchair with complaints of mh7 worsening of symptoms, Can't walk. 19:38 The patient presents with dizziness, generalized weakness, lightheadedness. Onset: The mh7 symptoms/episode began/occurred today, at an unknown time. Context: occurred at home, occurred while the patient was standing, just prior to the episode the patient experienced lightheadedness, nausea, vomiting. Modifying factors: The symptoms are alleviated by nothing, the symptoms are aggravated by standing up. Associated signs and symptoms: Pertinent positives: nausea, vomiting, X2, Pertinent negatives: abdominal pain, agitation, ataxia, blurred vision, chest pain, combativeness, confusion, diaphoresis, head injury, headache, numbness, palpitations, seizure, shortness of breath, syncope, tingling. Severity of symptoms: At their worst the symptoms were moderate today, in the emergency department the symptoms have improved moderately. Patient's baseline: Neuro: alert and fully oriented, Motor: no deficits, Ambulation: walks without assistance, Speech: normal, The patient has a previous history of seizure disorder. The patient has experienced similar episodes in the past, several times. The patient has been recently been admitted at [facility], was discharged earlier today. Historical: - Allergies: 18:28 Augmentin; ap3 18:28 Cipro; ap3 - PMHx: 18:28 Anxiety; Atrial Fib; CHF; Diabetes - IDDM; High Cholesterol; Hypertension; Low HR; ap3 Myocardial infarction; neuropathy; Seizures; - PSHx: 18:28 Appendectomy; Pacemaker-Defib; ap3 - Immunization history:: Client reports receiving the 2nd dose of the Covid vaccine, Flu vaccine is up to date. Pneumococcal vaccine is up to date. - Social history:: Smoking status: Patient denies any tobacco usage or history of. ROS: 19:38 Constitutional: Negative for fever, chills, and weight loss, Eyes: Negative for injury, mh7 pain, redness, and discharge, ENT: Negative for injury, pain, and discharge, Neck: Negative for injury, pain, and swelling, Cardiovascular: Negative for chest pain, palpitations, and edema, Respiratory: Negative for shortness of breath, cough, wheezing, and pleuritic chest pain. 19:38 Back: Negative for injury and pain, : Negative for injury, bleeding, discharge, and swelling, MS/Extremity: Negative for injury and deformity, Skin: Negative for injury, rash, and discoloration, Psych: Negative for depression, anxiety, suicide ideation, homicidal ideation, and hallucinations, Allergy/Immunology: Negative for hives, rash, and allergies, Endocrine: Negative for neck swelling, polydipsia, polyuria, polyphagia, and marked weight changes, Hematologic/Lymphatic: Negative for swollen nodes, abnormal bleeding, and unusual bruising. 19:38 Abdomen/GI: Negative for abdominal pain, diarrhea, constipation, abdominal cramps, abdominal distension, anorexia, dysphagia, hematemesis, black/tarry stool, rectal pain, rectal bleeding, bowel incontinence, flatulence. Exam: 19:38 Constitutional: This is a well developed, well nourished patient who is awake, alert, mh7 and in no acute distress. Head/Face: Normocephalic, atraumatic. Eyes: Pupils equal round and reactive to light, extra-ocular motions intact. Lids and lashes normal. Conjunctiva and sclera are non-icteric and not injected. Cornea within normal limits. Periorbital areas with no swelling, redness, or edema. Neck: Trachea midline, no thyromegaly or masses palpated, and no cervical lymphadenopathy. Supple, full range of motion without nuchal rigidity, or vertebral point tenderness. No Meningismus. Chest/axilla: Normal chest wall appearance and motion. Nontender with no deformity. No lesions are appreciated. Cardiovascular: Regular rate and rhythm with a normal S1 and S2. No gallops, murmurs, or rubs. Normal PMI, no JVD. No pulse deficits. Respiratory: Lungs have equal breath sounds bilaterally, clear to auscultation and percussion. No rales, rhonchi or wheezes noted. No increased work of breathing, no retractions or nasal flaring. Abdomen/GI: Soft, non-tender, with normal bowel sounds. No distension or tympany. No guarding or rebound. No evidence of tenderness throughout. Back: No spinal tenderness. No costovertebral tenderness. Full range of motion. Skin: Warm, dry with normal turgor. Normal color with no rashes, no lesions, and no evidence of cellulitis. MS/ Extremity: Pulses equal, no cyanosis. Neurovascular intact. Full, normal range of motion. Psych: Awake, alert, with orientation to person, place and time. Behavior, mood, and affect are within normal limits. 19:38 Neuro: Orientation: is normal, Mentation: is normal, Memory: is normal, Cranial nerves: grossly normal, Cerebellar function: is grossly normal, Motor: is normal, Sensation: is normal, Gait: not tested. Deep tendon reflexes are normal, Babinski testing is normal, seizure activity, is not displayed by the patient, Abnormal movements: there are no abnormal movements. Vital Signs: 18:25 BP 160 / 63; Pulse 79; Resp 17; Temp 98.1; Pulse Ox 96% ; Height 5 ft. (152.40 cm); ap3 19:30 BP 171 / 59 Supine; Pulse 79; Resp 15; Pulse Ox 100% on R/A; st1 19:35 BP 168 / 53 Sitting; Pulse 81; Resp 24; Pulse Ox 100% on R/A; st1 19:40 BP 152 / 59 Standing; Pulse 83; Resp 18; Pulse Ox 100% on R/A; st1 21:04 BP 152 / 65; Pulse 79; Resp 16; Pulse Ox 98% on R/A; st1 21:57 BP 135 / 57; Pulse 70; Resp 16; Pulse Ox 98% on R/A; st1 23:41 BP 130 / 62; Pulse 69; Resp 18; Pulse Ox 100% on R/A; st1 MDM: 23:20 Differential diagnosis: cardiac arrhythmia, CVA, generalized weakness, hypovolemia, mh7 idiopathic dizziness, near-syncope, syncope, vertigo. Data reviewed: vital signs, nurses notes, old medical records, lab test result(s), cardiac enzymes, CBC, electrolytes, urinalysis, EKG, radiologic studies, CT scan, plain films. Data interpreted: Pulse oximetry: on room air is 98 %. Interpretation: normal. Counseling: I had a detailed discussion with the patient and/or guardian regarding: the historical points, exam findings, and any diagnostic results supporting the discharge/admit diagnosis, the presence of at least one elevated blood pressure reading (>120/80) during this emergency department visit, lab results, radiology results, the need for outpatient follow up, to return to the emergency department if symptoms worsen or persist or if there are any questions or concerns that arise at home. Response to treatment: the patient's symptoms have resolved after treatment, the patient's blood pressure is in an acceptable range, mental status has returned to baseline, the patient no longer shows bradycardia, the patient is not short of breath, the patient is not tachycardic, the patient's pain is gone, the patient's temperature has normalized. ED course: Feels better, well-appearing, no acute distress, vital signs stable, no focal neurological deficits. Denies any dizziness, weakness, chest pain, abdominal pain, headache, shortness of breath, nausea, vomiting, or other complaints. She is ambulating around ED and tolerating p.o. intake without difficulty. Discussed all test results and findings with the patient and her daughter and answered all her questions. Offered possible labs admission but patient declined stating that she will follow up with her doctor tomorrow and she already has an appointment. Advised to return to ED if worsening of symptoms or other urgent concerns.. 23:24 Patient medically screened. [facility] 04/12 19:34 Order name: Basic Metabolic Panel [facility] 04/12 19:34 Order name: CBC with Diff; Complete Time: 20:55 [facility] 04/12 19:34 Order name: LFT's [facility] 04/12 19:34 Order name: Magnesium; Complete Time: 20:55 [facility] 04/12 19:34 Order name: NT PRO-BNP; Complete Time: 20:55 [facility] 04/12 19:34 Order name: PT-INR; Complete Time: 20:22 [facility] 04/12 19:34 Order name: Troponin HS; Complete Time: 20:55 [facility] 04/12 19:34 Order name: XRAY Chest (1 view); Complete Time: 20:22 [facility] 04/12 19:34 Order name: CT Head Brain wo Cont; Complete Time: 20:22 [facility] 04/12 19:34 Order name: Basic Metabolic Panel; Complete Time: 20:55 [facility] 04/12 19:35 Order name: Lipase; Complete Time: 20:55 7 04/12 19:35 Order name: Liver (Hepatic) Function; Complete Time: 20:55 [facility] 04/12 20:52 Order name: CBC Smear Scan; Complete Time: 20:55 [facility] 04/12 22:03 Order name: Urine Dipstick-Ancillary; Complete Time: 22:35 [facility] 04/12 19:34 Order name: EKG; Complete Time: 19:35 [facility] 04/12 19:34 Order name: Cardiac monitoring; Complete Time: 19:48 7 04/12 19:34 Order name: EKG - Nurse/Tech; Complete Time: 21:13 7 04/12 19:34 Order name: IV Saline Lock; Complete Time: 19:48 [facility] 04/12 19:34 Order name: Labs collected and sent; Complete Time: 19:48 04/12 19:34 Order name: O2 Per Protocol; Complete Time: 19:48 [facility] 04/12 19:34 Order name: O2 Sat Monitoring; Complete Time: 19:48 04/12 19:34 Order name: Urine Dipstick-Ancillary (obtain specimen); Complete Time: 21:59 04/12 19:35 Order name: Orthostatics; Complete Time: 19:48 7 04/12 23:02 Order name: PO challenge; Complete Time: 23:42 [facility] Administered Medications: 21:00 Drug: Zofran (Ondansetron) 4 mg Route: IVP; Site: right antecubital; st1 21:00 Drug: Pepcid (famotidine) 20 mg Route: IVP; Site: right antecubital; st1 Disposition Summary: 04/12/21 23:24 Discharge Ordered Location: Home [facility] Problem: an acute exacerbation [facility] Symptoms: have improved [facility] Condition: Stable [facility] Diagnosis - Dizziness and giddiness 7 - Muscle weakness (generalized) 7 - Nausea with vomiting, unspecified 7 - Chronic kidney disease, unspecified 7 Followup: [facility] - With: Private Physician - When: 1 - 2 days - Reason: Worsening of condition, Recheck today's complaints, Continuance of care, Re-evaluation by your physician Discharge Instructions: - Discharge Summary Sheet 7 - Nausea, Adult 7 - Weakness, Fkex-aa-Sogg 7 - Chronic Kidney Disease, Adult, Kbjp-[id number] [facility] - Dizziness, Kwfs-ea-Dler [facility] - Vomiting, Adult [facility] Forms: - Medication Reconciliation Form [facility] - Thank You Letter [facility] - Antibiotic Education [facility] - Prescription Opioid Use [facility] Prescriptions: - ondansetron 4 mg Oral tablet,disintegrating - place 1 tablet by TRANSLINGUAL route every 8 hours As needed; 10 tablet; [facility] Refills: 0, Product Selection Permitted Signatures: Dispatcher [employer] Fang Seo RN RN ap3 Warren Pitts MD MD 7 Lisa Nava RN RN st1
--- NOTE | 2021-04-12 23:25 | ER ---
Nurse's Notes [facility] Name: Teena Simpson Age: 76 yrs Sex: Female : 1945 Arrival Date: 04/12/2021 Time: 18:15 Bed 8 Private MD: Santiago Lou Diagnosis: Dizziness and giddiness;Muscle weakness (generalized);Nausea with vomiting, unspecified;Chronic kidney disease, unspecified Presentation: 04/12 18:25 Chief complaint: Patient's son or daughter states: the patient is her mother. The ap3 patient was discharged from this facility this afternoon, however it is reported the patient is having worsening symptoms. The patient reports having weak legs, nausea, vomiting, loss of appetite, and dizziness. Daughter states she attempted to administer the patients seizure medication, however the patient vomited soon after and it is unknown if the patient was able to get the medication properly. Coronavirus screen: At this time, the client does not indicate any symptoms associated with coronavirus-19. Ebola Screen: No symptoms or risks identified at this time. Initial Sepsis Screen: Does the patient meet any 2 criteria? No. Patient's initial sepsis screen is negative. Does the patient have a suspected source of infection? No. Patient's initial sepsis screen is negative. Risk Assessment: Do you want to hurt yourself or someone else? Patient reports no desire to harm self or others. Onset of symptoms was April 07, 2021. 18:25 Method Of Arrival: Wheelchair ap3 18:25 Acuity: TYSON 3 ap3 Triage Assessment: 18:29 General: Appears in no apparent distress. Behavior is calm, cooperative. Pain: ap3 Complains of pain in generalized aches and pains, with a headache. Neuro: Level of Consciousness is awake, alert, obeys commands, Oriented to person, place, time, situation, Appropriate for age Weakness in bilateral leg(s). Cardiovascular: Patient's skin is warm and dry. Respiratory: Airway is patent Respiratory effort is even, unlabored. GI: Reports nausea, vomiting. Historical: - Allergies: 18:28 Augmentin; ap3 18:28 Cipro; ap3 - PMHx: 18:28 Anxiety; Atrial Fib; CHF; Diabetes - IDDM; High Cholesterol; Hypertension; Low HR; ap3 Myocardial infarction; neuropathy; Seizures; - PSHx: 18:28 Appendectomy; Pacemaker-Defib; ap3 - Immunization history:: Client reports receiving the 2nd dose of the Covid vaccine, Flu vaccine is up to date. Pneumococcal vaccine is up to date. - Social history:: Smoking status: Patient denies any tobacco usage or history of. Screenin:30 Abuse screen: Denies threats or abuse. Nutritional screening: Has had N/V for 3 or more ap3 days. Tuberculosis screening: No symptoms or risk factors identified. 19:51 Fall Risk None identified. No fall in past 12 months (0 pts). Secondary diagnosis (15 st1 points) impaired mobility, IV access (20 points). Ambulatory Aid- None/Bed Rest/Nurse Assist (0 pts). Gait- Weak (10 pts.). Mental Status- Oriented to own ability (0 pts). Total Lynch Fall Scale indicates Low Risk Score (25-44 pts). Fall prevention measures have been instituted. Side Rails Up X 2 Placed close to Nursing Station Frequent Obs/Assesments occuring Family Present and informed to notify staff if they need to leave bedside As available Patient and Family Educated on Fall Prevention Program and strategies. Assessment: 21:04 Reassessment: Patient appears in no apparent distress at this time. Patient is alert, st1 oriented x 3, equal unlabored respirations, skin warm/dry/pink. Patient states feeling better. Vital Signs: 18:25 BP 160 / 63; Pulse 79; Resp 17; Temp 98.1; Pulse Ox 96% ; Height 5 ft. (152.40 cm); ap3 19:30 BP 171 / 59 Supine; Pulse 79; Resp 15; Pulse Ox 100% on R/A; st1 19:35 BP 168 / 53 Sitting; Pulse 81; Resp 24; Pulse Ox 100% on R/A; st1 19:40 BP 152 / 59 Standing; Pulse 83; Resp 18; Pulse Ox 100% on R/A; st1 21:04 BP 152 / 65; Pulse 79; Resp 16; Pulse Ox 98% on R/A; st1 21:57 BP 135 / 57; Pulse 70; Resp 16; Pulse Ox 98% on R/A; st1 23:41 BP 130 / 62; Pulse 69; Resp 18; Pulse Ox 100% on R/A; st1 ED Course: 18:15 Patient arrived in ED. am2 18:15 Santiago Lou MD is Private Physician. am2 18:28 Triage completed. ap3 18:30 Arm band placed on right wrist. ap3 19:03 Warren Pitts MD is Attending Physician. mh7 19:47 Basic Metabolic Panel Sent. st1 19:47 LFT's Sent. st1 19:48 Basic Metabolic Panel Sent. st1 19:48 Lipase Sent. st1 19:48 Liver (Hepatic) Function Sent. st1 19:48 Troponin HS Sent. st1 19:48 CBC with Diff Sent. st1 19:48 Magnesium Sent. st1 19:48 NT PRO-BNP Sent. st1 19:48 PT-INR Sent. st1 19:48 XRAY Chest (1 view) Sent. st1 19:48 Inserted saline lock: 20 gauge in right forearm, using aseptic technique. st1 19:50 XRAY Chest (1 view) In Process Unspecified. EDMS 19:51 Patient has correct armband on for positive identification. Placed in gown. Bed in low st1 position. Call light in reach. Side rails up X2. instrument lens grinder on. Pulse ox on. NIBP on. Warm blanket given. Verbal reassurance given. 19:55 CT Head Brain wo Cont In Process Unspecified. EDMS 21:51 Sadie Lake, WM is Primary Nurse. [facility] 23:40 No provider procedures requiring assistance completed. IV discontinued, intact, st1 bleeding controlled, No redness/swelling at site. Pressure dressing applied. Administered Medications: 21:00 Drug: Zofran (Ondansetron) 4 mg Route: IVP; Site: right antecubital; st1 21:00 Drug: Pepcid (famotidine) 20 mg Route: IVP; Site: right antecubital; st1 Outcome: 23:24 Discharge ordered by . 7 23:40 Discharged to home via wheelchair. st1 23:40 Condition: good 23:40 Discharge instructions given to patient, family, Instructed on discharge instructions, follow up and referral plans. medication usage, Demonstrated understanding of instructions, follow-up care, medications. 23:42 Patient left the ED. st1 Signatures: Dispatcher [employer] EDMS Fang Morrissey am2 Fang Flaherty RN RN ap3 Warren Pitts MD MD [facility] Sadie Lake, RN RN sm5 Lisa Naav, RN RN st1
[2021-04-13 02:03] VITALS: TEMP 98.1
[2021-04-13 02:09] VITALS: BP 130/62; O2SAT 100
== END 2021-04-12 23:42 | disposition home or self-care (01) ==
LOC: ER 18:14
DX: M62.81 Muscle weakness (generalized) (principal); R11.2 Nausea with vomiting, unspecified; E11.22 Type 2 diabetes mellitus with diabetic chronic kidney disease; I13.0 Hypertensive heart and chronic kidney disease with heart failure and stage 1 through stage 4 chronic kidney disease, or unspecified chronic kidney disease; N18.9 Chronic kidney disease, unspecified; I50.9 Heart failure, unspecified; Z88.1 Allergy status to other antibiotic agents; Z95.810 Presence of automatic (implantable) cardiac defibrillator
CPT/HCPCS: 85025; 80048; 36415; 83735; 85610; 80076; 81003; 84484; 83690; 83880; 70450; 71045; 96375; 96374; 99284; J2405

== ENCOUNTER 2021-06-18 18:00 | Emergency (ER) | payer OTHER ==
--- OUTSIDE RECORDS SUMMARY | 2021-06-18 18:03 | XMS REPORT | Continuity of Care Document ---
:1945 Author Organization [facility] t Address [address] [place] [address] Care Team Providers Name Role Phone GARCIA Lauren Primary Care Physician Unavailable KIA Attending Clinician Unavailable Tin QSUIRES Attending Clinician Lauryn Samano RN Attending Clinician Unavailable KIA Admitting Clinician Unavailable Payers Payer Name Policy Type Policy Number Effective Date Expiration Date Lucy LOZANO/SANDRA [id number] 2019 MEDICARE ADVANTAGE 00:00:00 Advance Directives Directive Decision Effective Termination Comments Source Date Date Healthcare Agents on N/A [facility] FileNameRelationshNewark Hospitale[facility] Agent Medical RelationshipCommunicationGraciela Branch NegreteChildHealth Care [phone] (Mobile) (Home)[email or web address] nichelle Melody BrennanMountrail County Health Center Health Care [phone] (Mobile) [email or web address] Problems Condition Condition Condition Status Onset Resolution Last Treating Co mments Source Name Details Category Date Date Treatment Clinician Date Atrial Atrial Disease Active Univers tachycardi tachycardi 2-25 it y of a a 00:00: [place] 00 Medical Branch Dizziness Dizziness Disease Active Uni vers and and 2-25 ity of giddiness g[place] V-tach V-tach Disease Active Univers 1-22 ity of 00:00: Medical Branch GI bleed GI bleed Disease Active Unive rs 1-17 ity of 00:00: Medical Branch Rectal Rectal Disease Active Overview: Univer s bleeding bleeding 1-17 Formattin ity of 00:00: g of this note Medical might be Branch different from the original. Added automatic ally from request for surgery [id number] Refusal of Refusal of Disease Active 2020-02 U paresh blood blood 2-13 ity of transfusio [place] 00 Medical patient is patient is Br zenon [employer] Witness Osteopenia Osteopenia Disease Active 2020-02 U paresh 1-09 ity of 00:00: [place] [facility] UTI UTI Disease Active 2019-02 Univers (urinary (urinary 0-08 ity of tract tract 00:00: [place] infection) infection) 00 Me dical Branch Chronic Chronic Disease Active 2019-02 Univers systolic systolic 0-08 ity of CHF CHF 00:00: [place] (congestiv (congestiv 00 Me dical e heart [...] Univers spells spells 0-19 ity of 00:00: [place] 00 Medical Branch Acute on Acute on Disease Active Unive rs chronic chronic 9-11 ity of anemia anemia 00:00: [place] 00 Medical Branch Atypical Atypical Disease Active Unive rs chest pain chest pain 5-09 it y of 00:00: [place] 00 Medical Branch Left arm Left arm [...] Branch Osteoarthr Osteoarthr Disease Active 2019 U paresh itis of itis of 1-07 ity of [...] Chronic Disease Active 2017-02 Univers nausea nausea - ity of 00:00: [place] [facility] Dysphagia Dysphagia Disease Active 2017-02 Uni vers 2- ity of 00:00: [place] [facility] Fatty Fatty Disease Active Univers liver liver - ity of 00:00: [place] [facility] Abnormal Abnormal Disease Active Unive rs LFTs LFTs 5- ity of 00:00: [place] [facility] Multiple Multiple Disease Active Overview: Un araseli renal renal - Formattin ity of cysts cysts 00:00: g of this 00 note Medical might be Branch different from the original. Bosniak Type [address] Hyperkalem Hyperkalem Disease Active U nivers ia ia 5- ity of 00:00: [place] [facility] History of History of Disease Active U nivers colon colon 5-03 ity of polyps polyps 00:00: [place] [facility] History of History of Disease Active U nivers pulmonary pulmonary 2-17 ity of embolism embolism 00:00: [place] [facility] ICD ICD Disease Active Univers (implantab (implantab 2-17 it y of le le 00:00: [place] cardiovert cardiovert 00 Me dical er-defibri er-defibri Br anch llator) in llator) in place place Atrial Atrial Disease Active Univers fibrillati fibrillati 1-16 it y of on on 00:00: [place] [facility] Syncope Syncope Disease Active Univers 1-15 ity of 00:00: [place] [facility] DM DM Disease Active Univers (diabetes (diabetes 8-31 ity of mellitus), mellitus), [place] type 2 type 2 00 Medical with renal with renal Br anch complicati complicati ons ons Anxiety Anxiety Disease Active Univers ity of [place] [facility] [place] CKD CKD Disease Active Univers (chronic (chronic ity of kidney kidney [place] disease) disease) Medica l stage 4, stage 4, Branch GFR 15-29 GFR 15-29 ml/min ml/min Epilepsy Epilepsy Disease Active Unive rs ity of [facility] Esophageal Esophageal Disease Active U nivers reflux reflux ity of [facility] HLD HLD Disease Active Univers (hyperlipi (hyperlipi it y of demia) demia) [facility] HTN HTN Disease Active Univers (hypertens (hypertens it y of ion) ion) [facility] 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 [place] [facility] ASHLYN ASHLYN Disease Active Univers (obstructi (obstructi it y of ve sleep ve sleep [place] apnea) apnea) Medical [place] Allergies, Adverse Reactions, Alerts Allergy Allergy Status [...] INGREDI 2-13 ity of 00:00: [place] 00 [facility] Social History Social Habit Start Date Stop Date Quantity Comments Source Exposure to Not sure University of SARS-CoV-2 [facility] (event) Branch Alcohol intake 2021-03-29 2021-03-29 Current University of 00:00:00 00:00:00 non-drinker of [facility] alcohol Branch (finding) Tobacco Comment 2021-03-07 2021-03-07 exposed to "a Univer sity of 00:00:00 00:00:00 lot" of passive [place] Med ical smoke from Branch Tobacco use and 2019-12-09 2019-12-09 Never used Universit y of exposure 00:00:00 00:00:00 [facility] Sex [birth year] Universit y of 00:00:00 00:00:00 [facility] Smoking Status Start Date Stop Date Source Never smoker University [facility] Medications Ordered Filled Start Stop Current Ordering Indication Dosage Frequency Signature Comments Components Source Medication Medication Date Date Medication? Clinician (SIG) Name Name metoprolol Yes 100mg Take 100 Un araseli tartrate 2-25 mg by ity of 100 mg 10:14: mouth 2 [place] tablet 06 (two) Medical times [place] daily. insulin NPH Yes [id number] 10U inject Univers (NOVOLIN N 04-13 10-15 ity of NPH U-100 00:00: Units [place] INSULIN) 00 under the Medica l 100 unit/mL skin every Br anch injection evening. insulin NPH 2021- Yes [id number] 20U inject 20 Univers (HUMULIN N 04-13-24 Units ity of NPH U-100 00:00: 04:59 [place] the [place] INSULIN[place] 00 :00 skin every Medic al 100 unit/mL morning Branc h injection for 28 days. OXcarbazepi 2021- No [id number] 150mg Take 1 Univers ne 150 mg 03-3008 tablet by ity of tablet 00:00: 00:00 mouth 2 [place] 00 :00 (two) [facility] daily. After 1 week take 2 PO BID, then in 1 week 3 PO BID and call office for further instructio ns. phenytoin 2021- No [id number] 100mg Take 1 Univers Extended 03-30 capsule by ity of 100 mg 00:00: 05:59 mouth [place] capsule 00 :00 daily for Medical 14 days. Branch insulin NPH 2021- No [id number] inject 15 Univers (HUMULIN N 03-18-23 Units ity of NPH U-100 00:00: [place]:00 [place] INSULIN[place] 00 :00 skin every Medic al 100 unit/mL morning Branc h injection for 28 days, THEN 11 Units every evening for 28 days. furosemide Yes [id number] 20mg Take 1 Univers 20 mg 1-27 tablet by ity of tablet 00:00: mouth [place] 00 daily. Medical Branch levETIRAcet Yes [id number] 500mg Take 1 Univers am 500 mg 1-27 tablet by ity o f tablet 00:00: mouth 2 [place] 00 (two) Medical times Branch daily. insulin NPH 2021- No [id number] 11U inject 11 Univers (NOVOLIN N 1-27 02-23 Units ity of NPH U-100 00:00: [place]:00 [place] INSULIN[place] 00 :00 skin every Medic al 100 unit/mL evening. Bran ch injection pantoprazol Yes [id number] 40mg Take 1 Univers e 40 mg EC 1-21 tablet by ity of tablet 00:00: mouth [place] 00 daily. Medical Branch apixaban 2020-02 Yes 5mg Take 1 Univers (ELIQUIS) 5 2-14 tablet by ity of mg tablet 00:00: mouth 2 [place] 00 (two) Medical times Branch daily. atorvastati 2020-02 Yes [id number] 40mg Take 1 Univers n 40 mg 2-14 tablet by ity of tablet 00:00: mouth at [place] 00 bedtime. Medical Branch insulin 2020-02 Yes 8U inject 8 Univer s regular 2-14 Units ity of human 00:00: under the [place] (NOVOLIN R 00 skin Medical REGULAR daily. Branch U-100 Daily at [facility]) 100 noon unit/mL injection Blood-Gluco [facility] 5-15 glucose ity of Kit 00:00: once daily [place] 00 before Medical breakfast; Branch Diagnosis code E11.9 blood sugar Yes [facility] diagnostic 5-15 glucose ity of (BLOOD 00:00: once daily [place] GLUCOSE 00 before Medical TEST) strip breakfast; Br anch Diagnosis code E11.9 Lancets Yes Check [facility] Misc 5-15 glucose ity of 00:00: once daily [place] 00 before Medical breakfast; Branch Diagnosis code E11.9 Immunizations Ordered Filled Immunization Date Status Comments Sour e Immunization Name Name SARS-COV-2 COVID-19 2021-01-31 Completed Unive rsity of MODERNA BOOSTER 00:00:00 [place] Med ical VACCINE Branch Influenza Virus 2020-12-03 Completed Universit y of Vaccine,quad 00:00:00 [place] Medica l Im,preserve Free Branch 65+ Pneumococcal 2020-12-03 Completed [place] o f Polysaccharide, 00:00:00 [facility] ical PPSV23 (PNEUMOVAX) Branch SARS-COV-2 COVID-19 2020-04-26 Completed Unive rsity of MODERNA VACCINE 00:00:00 [facility] Branch SARS-COV-2 COVID-19 2020-03-29 Completed Unive rsity of MODERNA VACCINE 00:00:00 [facility] ical Branch Pneumococcal 13 2019-12-19 Completed Universit y of Conjugate, PCV13 00:00:00 [place] Me dical (Prevnar 13) Branch Influenza Virus 2019-11-22 Completed Universit y of Vaccine Recomb Quad 00:00:00 [facility], Preserv and ABX Branc h Free 18-64 YRS HEP B, Adult Dosage 2018-03-25 Completed Unive rsity of 00:00:00 [facility] HEP B, Adult Dosage 2017-10-10 Completed Unive rsity of 00:00:00 [facility] HEP B, Adult Dosage 2017-09-05 Completed Unive rsity of 00:00:00 [facility] Pneumococcal 13 2015-02-19 Completed Universit y of Conjugate, PCV13 00:00:00 [facility] dical (Prevnar 13) Branch Pneumococcal 2011-02-19 Completed University o f Polysaccharide, 00:00:00 [facility] PPSV23 (PNEUMOVAX) [place] Vital Signs Vital Name Observation Time Observation Value Comments Source Systolic blood 2021-04-13 16:28:00 133 mm[Hg] Univer sity [facility] pressure [facility] Diastolic blood 2021-04-13 16:28:00 59 mm[Hg] [facility] Heart rate 2021-04-13 16:28:00 78 /min [facility] Body weight 2021-04-13 16:28:00 85.684 kg [facility] BMI 2021-04-13 16:28:00 36.89 kg/m2 [facility] Oxygen saturation 2021-04-13 16:28:00 98 /min [facility] in Arterial blood [facility] by Pulse oximetry Procedures This patient has no known procedures. Encounters Start End Encounter Admission Attending Care Care Encounter Source Date/Time Date/Time Type Type Clinicians Facility Department ID 2021-11-25 2021-11-25 Outpatient Moustapha [facility]AM [facility] [id number] [facility] 10:20:00 10:20:00 RADHA [id number] [facility] 2021-11-25 2021-11-25 [facility] [id number] Univers 10:20:00 10:20:00 RADHA [facility] 2021-06-10 2021-06-10 [facility] [id number] Univers 10:46:49 23:59:00 RADHA [facility] 2021-06-10 2021-06-10 Outpatient Moustapha [facility] [id number] Univers 11:00:00 11:00:00 RADHA [id number] [facility] 2021-04-13 2021-04-13 Office Tin [facility] [id number] Univers 10:00:00 11:12:56 Visit [facility] [id number] it y of [place] [id number] Bernabe as ERIKA?BLEA [id number] Mi sherif [address] MEDICAL OFFICE BUILDING 2020-05-20 2020-05-20 Telephone YANA Samano [id number] 00:00:00 00:00:00 Teri RENEE [id number] [facility] [id number] Results This patient has no known results.
[2021-06-18 19:19] LABS: Protime INR 1.07
[2021-06-18 19:20] LABS: Absolute Lymphocytes (CBC) 1.5 K/uL (0.7-4.9); Hematocrit 33.7 % (36.0-45.0); Lymphocytes % 24.3 % (15.3-44.8); MPV 10.2 fL (7.6-11.3)
[2021-06-18 19:33] LABS: ALT/SGPT 29 U/L (12-78); AST/SGOT 24 U/L (15-37); Albumin 3.1 g/dL (3.4-5.0); Alkaline Phosphatase 132 U/L (45-117); BUN Blood Urea Nitrogen 67 mg/dL (7-18); Bicarbonate 22 mmol/L (21-32); Bilirubin Total 0.1 mg/dL (0.2-1.0); Glucose Level 128 mg/dL (74-106); Magnesium 2.5 mg/dL (1.8-2.4); NT PRO-BNP 2751 pg/mL (<450); Potassium 4.6 mmol/L (3.5-5.1); Protein, Total 7.1 g/dL (6.4-8.2); Sodium Level 140 mmol/L (136-145); Troponin High Sensitivity 19.5 pg/mL (<58.9)
--- NOTE | 2021-06-18 19:35 | RAD REPORT ---
EXAM DESCRIPTION: US - Extremity Venous Uni Ltd - 06/18/2021 7:29 pm CLINICAL HISTORY: PAIN COMPARISON: None. TECHNIQUE: Real-time sonographic evaluation of the right lower extremity deep venous systems was per formed. FINDINGS: Normal compressibility, flow augmentation, phasic flow and spontaneous flow are identified in the right lower extremity common femoral, superficial femoral, popliteal and posterior tibial vei ns. No intraluminal filling defects seen. IMPRESSION: No DVT in the right lower extremity.
--- NOTE | 2021-06-18 19:36 | RAD REPORT ---
EXAM DESCRIPTION: RAD - Chest Single View - 06/18/2021 7:04 pm CLINICAL HISTORY: SOB COMPARISON: Portable 04/12/2021 TECHNIQUE: AP portable chest image was obtained 06/18/2021 7:04 pm . FINDINGS: No peripheral mass consolidation. Interstitial pattern and minimal nodularity of the lung parenchyma not clearly different from comparison. Defibrillator remains in place. Heart size is upper normal. Central vasculature is mildly prominent but not significantly different. No measurable pleural effusion and no pneumothorax. No acute bony abnormality seen. No acute aortic findings suspected. IMPRESSION: Chronic lung parenchymal and vascular findings stable from March imaging. No acute findings seen.
[2021-06-18 19:37] LABS: Bilirubin Direct < 0.1 mg/dL (0-0.2)
[2021-06-18] MEDS ORDERED: FUROSEMIDE 20 MG/ 2ML VIAL ONE (21:33)
[2021-06-18] MEDS ORDERED: ALBUTEROL 2.5 MG/3 ML NEB SOL ONE (21:33)
--- NOTE | 2021-06-18 22:07 | ER ---
Nurse's Notes [facility] Name: Teena Simpson Age: 76 yrs Sex: Female : 1945 Arrival Date: 06/18/2021 Time: 18:01 Bed 4 Private MD: Santiago Lou Diagnosis: Pain in right arm;Unspecified combined systolic (congestive) and diastolic (congestive) heart failure;Shortness of breath Presentation: 06/18 18:13 Chief complaint: Patient states: "I have pain in my arm and I am SOB." Pt states SOB ab2 started last night. Pt states the arm pain started 2 months ago, but comes and goes. Pt denies any inury to arm. Pt c/o R arm pain. Coronavirus screen: Vaccine status: Patient reports receiving the 2nd dose of the covid vaccine. Client denies travel out of the [place] in the last 14 days. At this time, the client does not indicate any symptoms associated with coronavirus-19. Ebola Screen: Patient negative for fever greater than or equal to 101.5 degrees Fahrenheit, and additional compatible Ebola Virus Disease symptoms Patient denies exposure to infectious person. Patient denies travel to an Ebola-affected area in the 21 days before illness onset. No symptoms or risks identified at this time. 18:13 Method Of Arrival: Ambulatory ab2 18:16 Initial Sepsis Screen: Does the patient meet any 2 criteria? No. Patient's initial ab2 sepsis screen is negative. Does the patient have a suspected source of infection? No. Patient's initial sepsis screen is negative. Risk Assessment: Do you want to hurt yourself or someone else? Patient reports no desire to harm self or others. Onset of symptoms is unknown. 18:16 Acuity: TYSON 3 ab2 Triage Assessment: 18:14 General: Appears in no apparent distress. uncomfortable, Behavior is calm, cooperative, ab2 appropriate for age. Pain: Complains of pain in right arm. 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 Gait is steady, Speech is normal. Cardiovascular: Reports shortness of breath, Denies chest pain, Patient's skin is warm and dry. Respiratory: Reports shortness of breath at rest Onset: The symptoms/episode began/occurred yesterday, the patient has mild shortness of breath. GI: No deficits noted. Abdomen is round. : No deficits noted. No signs and/or symptoms were reported regarding the genitourinary system. Derm: Skin is intact, is healthy with good turgor. Historical: - Allergies: 18:15 Augmentin; ab2 18:15 Cipro; ab2 - Home Meds: 22:21 atorvastatin 40 mg Oral tab 1 tab once daily [Active]; digoxin 125 mcg Oral tab once lp1 daily [Active]; Entresto 24-26 mg Oral tab twice a day [Active]; furosemide 40 mg Oral tab 2 times per day [Active]; gabapentin 300 mg Oral cap nightly [Active]; Lantus 50units Sub-Q soln nightly [Active]; metoprolol succinate 100 mg Oral Tb24 1 tab twice a day [Active]; Novolog 100 unit/mL Sub-Q soln 15 unit twice a day [Active]; Phenytoin 100mg Oral 2 tabs twice a day [Active]; Phenytoin 100mg cap Oral take 1 capsule every morning and 2 capsules in the evening [Active]; spironolactone 25 mg Oral tab once daily [Active]; tizanidine 2 mg Oral cap twice a day [Active]; Xarelto 15 mg Oral tab daily [Active]; - PMHx: 18:15 Anxiety; Atrial Fib; CHF; High Cholesterol; Diabetes - IDDM; neuropathy; Myocardial ab2 infarction; Seizures; Low HR; Hypertension; - PSHx: 18:15 Appendectomy; Pacemaker-Defib; ab2 - Immunization history:: Adult Immunizations up to date. - Social history:: Smoking status: Patient denies any tobacco usage or history of. Screenin:00 Abuse screen: Denies threats or abuse. Denies injuries from another. Nutritional lp1 screening: No deficits noted. Tuberculosis screening: No symptoms or risk factors identified. Fall Risk None identified. Assessment: 18:30 General: Appears in no apparent distress. uncomfortable, Behavior is calm, cooperative, jb4 appropriate for age. Pain: Denies pain. Neuro: Level of Consciousness is awake, alert, obeys commands, Oriented to person, place, time, situation. Cardiovascular: Patient's skin is warm and dry. Respiratory: Airway is patent Respiratory effort is even, unlabored, Respiratory pattern is regular, symmetrical. GI: No signs and/or symptoms were reported involving the gastrointestinal system. : No signs and/or symptoms were reported regarding the genitourinary system. EENT: No signs and/or symptoms were reported regarding the EENT system. Derm: Skin is intact, Skin is pink, warm \\T\\ dry. Musculoskeletal: Circulation, motion, and sensation intact. Range of motion: intact in all extremities. 19:49 Reassessment: Patient appears in no apparent distress at this time. Patient is alert, lp1 oriented x 3, equal unlabored respirations, skin warm/dry/pink. Reports shortness of breath when lying flat, trying to go to bed. 22:22 Reassessment: Patient is alert, oriented x 3, equal unlabored respirations, skin lp1 warm/dry/pink. Patient ambulating to bathroom independently. Vital Signs: 18:16 BP 160 / 54; Pulse 74; Resp 19; Temp 98.7; Pulse Ox 98% on R/A; Weight 88.45 kg; Height ab2 5 ft. 0 in. (152.40 cm); Pain 9/10; 19:49 BP 153 / 89; Pulse 65 MON; Resp 20; Pulse Ox 100% on R/A; Pain 0/10; lp1 21:15 BP 127 / 92; Pulse 67; Resp 14; Pulse Ox 98% on R/A; lp1 22:14 BP 132 / 56; Pulse 72; Resp 19; Pulse Ox 99% on R/A; lp1 18:16 Body Mass Index 38.08 (88.45 kg, 152.40 cm) ab2 19:49 Paced lp1 ED Course: 18:01 Patient arrived in ED. am2 18:01 Santiago Lou MD is Private Physician. am2 18:17 Triage completed. ab2 18:17 Arm band placed on right wrist. ab2 18:37 Luis Alberto Orozco PA is PHCP. cp 18:37 Gianfranco Myers MD is Attending Physician. cp 19:00 Initial lab(s) drawn, by me, sent to lab. Missed attempt(s): 20 gauge in left jb4 antecubital area. Bleeding controlled, band aid applied, catheter tip intact. 19:05 XRAY Chest (1 view) In Process Unspecified. EDMS 19:15 Patient has correct armband on for positive identification. Placed in gown. Bed in low lp1 position. spring coiling machine setter on. Pulse ox on. NIBP on. 19:30 US Extremity Venous Unilateral Ltd In Process Unspecified. EDMS 19:47 Sherri Moya, RN is Primary Nurse. lp1 21:18 Inserted saline lock: 20 gauge in right antecubital area, using aseptic technique. ag7 22:15 No provider procedures requiring assistance completed. lp1 22:22 IV discontinued, No redness/swelling at site. Pressure dressing applied. lp1 Administered Medications: 21:38 Drug: Lasix (furosemide) 20 mg Route: IVP; Site: right antecubital; ag7 22:15 Follow up: Response: No adverse reaction lp1 21:38 Drug: Albuterol 2.5 mg Route: Inhalation; ag7 Outcome: 22:06 Discharge ordered by . cp 22:22 Discharged to home via wheelchair, with family. lp1 22:22 Condition: good 22:22 Discharge instructions given to patient, family, Instructed on discharge instructions, follow up and referral plans. Demonstrated understanding of instructions, follow-up care. 22:22 Patient left the ED. lp1 Signatures: Dispatcher [employer] EDLA Sherri Moya, RN RN lp1 Luis Alberto Orozco PA PA cp Ej Mcmillan, RN RN jb4 Fang Morrissey Alexis ab2 Ayah Lopez, RN RN ag7 Corrections: (The following items were deleted from the chart) 19:51 19:49 Pulse 65bpm; Monitor: PacedResp 20bpm; Pulse Ox 100% RA; Pain 0/10; lp1 lp1
--- NOTE | 2021-06-18 22:07 | EDPHYS ---
Physician Documentation [facility] Name: Teena Simpson Age: 76 yrs Sex: Female : 1945 Arrival Date: 06/18/2021 Time: 18:01 Bed 4 Private MD: Santiago Lou ED Physician Gianfranco Myers HPI: 06/18 18:50 This 76 yrs old Female presents to ER via Ambulatory with complaints of cp Shortness Of Breath, Arm Pain - right. 18:50 The patient has shortness of breath with light activity. cp 18:50 Onset: The symptoms/episode began/occurred last night. Duration: The symptoms are cp intermittent. The patient's shortness of breath is aggravated by light activity. Associated signs and symptoms: Pertinent negatives: chest pain, productive cough, diaphoresis, dizziness, fever, vomiting. Severity of symptoms: in the emergency department the symptoms are unchanged despite home interventions. Patient c/o intermittent pain to right arm for 2 months. Patient denies injury. Historical: - Allergies: 18:15 Augmentin; ab2 18:15 Cipro; ab2 - Home Meds: 22:21 atorvastatin 40 mg Oral tab 1 tab once daily [Active]; digoxin 125 mcg Oral tab once lp1 daily [Active]; Entresto 24-26 mg Oral tab twice a day [Active]; furosemide 40 mg Oral tab 2 times per day [Active]; gabapentin 300 mg Oral cap nightly [Active]; Lantus 50units Sub-Q soln nightly [Active]; metoprolol succinate 100 mg Oral Tb24 1 tab twice a day [Active]; Novolog 100 unit/mL Sub-Q soln 15 unit twice a day [Active]; Phenytoin 100mg Oral 2 tabs twice a day [Active]; Phenytoin 100mg cap Oral take 1 capsule every morning and 2 capsules in the evening [Active]; spironolactone 25 mg Oral tab once daily [Active]; tizanidine 2 mg Oral cap twice a day [Active]; Xarelto 15 mg Oral tab daily [Active]; - PMHx: 18:15 Anxiety; Atrial Fib; CHF; High Cholesterol; Diabetes - IDDM; neuropathy; Myocardial ab2 infarction; Seizures; Low HR; Hypertension; - PSHx: 18:15 Appendectomy; Pacemaker-Defib; ab2 - Immunization history:: Adult Immunizations up to date. - Social history:: Smoking status: Patient denies any tobacco usage or history of. ROS: 19:00 Constitutional: Negative for body aches, chills, fever, poor PO intake. cp 19:00 Eyes: Negative for injury, pain, redness, and discharge. cp 19:00 ENT: Negative for drainage from ear(s), ear pain, sore throat, difficulty swallowing, difficulty handling secretions. 19:00 Cardiovascular: Positive for edema, Negative for chest pain, palpitations. 19:00 Respiratory: Positive for shortness of breath, on exertion. Negative for cough, wheezing. 19:00 Abdomen/GI: Negative for abdominal pain, nausea, vomiting, and diarrhea. 19:00 Back: Negative for pain at rest, pain with movement. 19:00 : Negative for urinary symptoms. 19:00 MS/extremity: Positive for pain, of the right arm, Negative for injury or acute deformity, decreased range of motion, deformity, paresthesias. 19:00 Skin: Negative for cellulitis, rash. 19:00 Neuro: Negative for altered mental status, dizziness, headache, syncope, weakness. 19:00 All other systems are negative. Exam: 19:05 Constitutional: The patient appears in no acute distress, alert, awake, comfortable, cp non-diaphoretic, non-toxic, well developed, well nourished. 19:05 Head/Face: Normocephalic, atraumatic. cp 19:05 Eyes: Periorbital structures: appear normal, Conjunctiva: normal, no exudate, no injection, Sclera: no appreciated abnormality, Lids and lashes: appear normal, bilaterally. 19:05 ENT: External ear(s): are unremarkable, Nose: is normal, Mouth: Lips: moist, Oral mucosa: pink and intact, moist, Posterior pharynx: Airway: no evidence of obstruction, patent. 19:05 Neck: ROM/movement: is normal, is supple, without pain, no range of motions limitations. 19:05 Chest/axilla: Inspection: normal. 19:05 Cardiovascular: Rate: normal, Rhythm: regular, Edema: ankle edema, that is very mild, JVD: is not appreciated. 19:05 Respiratory: the patient does not display signs of respiratory distress, Respirations: normal, no use of accessory muscles, no retractions, labored breathing, is not present, Breath sounds: are clear throughout, no decreased breath sounds, no stridor, no wheezing. 19:05 Abdomen/GI: Inspection: abdomen appears normal, Palpation: abdomen is soft and non-tender, in all quadrants. 19:05 Back: pain, is absent, ROM is normal. 19:05 Musculoskeletal/extremity: Extremities: grossly normal except: noted in the right arm: pain, There is no evidence of decreased ROM, swelling, ROM: full active range of motion, in the right arm, Pulses: noted to be 2+ in the right radial artery and left radial artery, the right arm Sensation intact. 19:05 Skin: cellulitis, is not appreciated, no rash present. 19:05 Neuro: Orientation: to person, place \T\ time. Mentation: is normal, Motor: moves all fours, strength is normal, Sensation: is normal. 19:45 ECG was reviewed by the Attending Physician. cp Vital Signs: 18:16 BP 160 / 54; Pulse 74; Resp 19; Temp 98.7; Pulse Ox 98% on R/A; Weight 88.45 kg; Height ab2 5 ft. 0 in. (152.40 cm); Pain 9/10; 19:49 BP 153 / 89; Pulse 65 MON; Resp 20; Pulse Ox 100% on R/A; Pain 0/10; lp1 21:15 BP 127 / 92; Pulse 67; Resp 14; Pulse Ox 98% on R/A; lp1 22:14 BP 132 / 56; Pulse 72; Resp 19; Pulse Ox 99% on R/A; lp1 18:16 Body Mass Index 38.08 (88.45 kg, 152.40 cm) ab2 19:49 Paced lp1 MDM: 18:38 Patient medically screened. cp 19:00 Differential diagnosis: Bronchitis CHF exacerbation, Chronic Obstructive Pulmonary cp Disease Myocardial Infarction pneumonia, Pneumothorax pulmonary edema, Pulmonary Embolism Sepsis Unstable Angina DVT, cellulitis, musculoskeletal pain. 22:05 Data reviewed: vital signs, nurses notes, lab test result(s), EKG, radiologic studies, cp plain films, ultrasound. 22:05 Test interpretation: by ED physician or midlevel provider: ECG, plain radiologic cp studies. Counseling: I had a detailed discussion with the patient and/or guardian regarding: the historical points, exam findings, and any diagnostic results supporting the discharge/admit diagnosis, lab results, radiology results, the need for outpatient follow up, a family practitioner, to return to the emergency department if symptoms worsen or persist or if there are any questions or concerns that arise at home. Response to treatment: the patient's symptoms have mildly improved after treatment, and as a result, I will discharge patient. ED course: VSS. Patient with no signs of respiratory distress. Oxygen sats 99% on RA, EKG negative for STEMI, chest xray negative for significant volume overload. Patient with kidney disease and creatine not significantly higher than baseline. Will discharge to home for continued monitoring. Recommend OTC tylenol for pain. 06/18 18:45 Order name: Basic Metabolic Panel; Complete Time: 19:44 cp 06/18 21:12 Interpretation: Normal except: CL 111; GLUC 128; BUN 67; CRE 2.87; GFR 16; CA 8.0. cp 06/18 18:45 Order name: CBC with Diff; Complete Time: 20:46 cp 06/18 20:47 Interpretation: Normal except: RBC 3.60; HGB 11.3; HCT 33.7. cp 06/18 18:45 Order name: LFT's; Complete Time: 20:46 cp 30 22:03 Interpretation: Normal except: ALK 132; BILIT 0.1; ALB 3.1; GLOB 4.0; A/G 0.8. cp 06/18 18:45 Order name: Magnesium; Complete Time: 20:46 cp 06/18 18:45 Order name: NT PRO-BNP; Complete Time: 20:46 cp 0430 20:47 Interpretation: Abnormal: NT PRO-BNP 2751. cp 06/18 18:45 Order name: PT-INR; Complete Time: 20:46 cp 30 18:45 Order name: Troponin HS; Complete Time: 20:46 cp 30 18:45 Order name: XRAY Chest (1 view); Complete Time: 20:46 cp /30 18:45 Order name: EKG; Complete Time: 18:46 cp 04/30 18:45 Order name: Cardiac monitoring; Complete Time: 19:47 cp 06/18 18:45 Order name: EKG - Nurse/Tech; Complete Time: 20:04 cp 06/18 18:45 Order name: US Extremity Venous Unilateral Ltd; Complete Time: 21:16 cp 06/18 22:04 Interpretation: Report reviewed. cp 06/18 18:45 Order name: IV Saline Lock; Complete Time: 22:13 cp 06/18 18:45 Order name: Labs collected and sent; Complete Time: 20:04 cp 06/18 18:45 Order name: O2 Per Protocol; Complete Time: 20:04 cp 06/18 18:45 Order name: O2 Sat Monitoring; Complete Time: 20:04 cp EC:45 Rate is 67 beats/min. Rhythm is regular. OK interval is normal. QRS interval is cp prolonged at 158 msec. QT interval is prolonged at 522 msec. T waves are Inverted in leads I, aVL, aVR. Interpreted by me. Reviewed by me. Administered Medications: 21:38 Drug: Lasix (furosemide) 20 mg Route: IVP; Site: right antecubital; ag7 22:15 Follow up: Response: No adverse reaction lp1 21:38 Drug: Albuterol 2.5 mg Route: Inhalation; ag7 Disposition: 06/19 07:23 Co-signature as Attending Physician, Gianfranco Myers MD I agree with the assessment and kdr plan of care. Disposition Summary: 06/18/21 22:06 Discharge Ordered Location: Home cp Problem: new cp Symptoms: have improved cp Condition: Stable cp Diagnosis - Pain in right arm cp - Unspecified combined systolic (congestive) and diastolic (congestive) heart failure cp - Shortness of breath cp Followup: cp - With: Private Physician - When: 2 - 3 days - Reason: Recheck today's complaints Discharge Instructions: - Discharge Summary Sheet cp - Musculoskeletal Pain cp - Shortness of Breath, Adult cp - Heart Failure, Self Care cp - Living With Heart Failure cp - Heart Failure Eating Plan cp Forms: - Medication Reconciliation Form cp - Thank You Letter cp - Antibiotic Education cp - Prescription Opioid Use cp 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
[2021-06-18 23:18] VITALS: TEMP 98.7
[2021-06-18 23:22] VITALS: BP 132/56; O2SAT 99
== END 2021-06-18 22:22 | disposition home or self-care (01) ==
LOC: ER 18:00
DX: I50.40 Unspecified combined systolic (congestive) and diastolic (congestive) heart failure (principal); M79.601 Pain in right arm; E11.9 Type 2 diabetes mellitus without complications; E78.00 Pure hypercholesterolemia, unspecified; I10 Essential (primary) hypertension; I48.91 Unspecified atrial fibrillation; Z79.01 Long term (current) use of anticoagulants; Z95.810 Presence of automatic (implantable) cardiac defibrillator; Z79.4 Long term (current) use of insulin; Z88.1 Allergy status to other antibiotic agents
CPT/HCPCS: 93005; 85025; 80048; 36415; 83735; 85610; 80076; 84484; 83880; 71045; 93971; 96374; 99285; J1940

== ENCOUNTER 2021-06-20 07:57 | Emergency (ER) | payer OTHER ==
--- OUTSIDE RECORDS SUMMARY | 2021-06-20 08:00 | XMS REPORT | Continuity of Care Document ---
:1945 Author Organization [facility] t Address [address] [place] [address] Care Team Providers Name Role Phone GARCIA Lauren Primary Care Physician Unavailable KIA Attending Clinician Unavailable Tin SQUIRES Attending Clinician Lauryn Samano RN Attending Clinician Unavailable KIA Admitting Clinician Unavailable Payers Payer Name Policy Type Policy Number Effective Date Expiration Date Lucy LOZANO/SANDRA [id number] 2019 MEDICARE ADVANTAGE 00:00:00 Advance Directives Directive Decision Effective Termination Comments Source Date Date Healthcare Agents on N/A [facility] FileNameRelationshOhio Valley Surgical Hospitalealthcare [facility] Agent Medical RelationshipCommunicationGraciela Branch NegreteChildHealth Care [phone] (Mobile) [email or web address] nichelle Melody BrennanA[facility] [phone] (Mobile) [email or web address] Condition Condition Condition Status Onset Resolution [...] Added automatic ally from request for surgery [id number] Refusal of Refusal of Disease Active 2020-02 U paresh blood blood 2-13 [place] Medical patient is patient is Br zenon [employer] Witness Osteopenia Osteopenia Disease Active 2020-02 U paresh 1-09 ity of 00:00: [place] [facility] UTI UTI Disease Active 2019-02 Univers (urinary (urinary 0-08 ity of tract tract 00:00: [place] infection) infection) 00 Me dical Branch Chronic Chronic Disease Active 2019-02 Univers systolic systolic 0-08 ity of CHF CHF 00:00: [place] (congestiv (congestiv 00 Me dical e heart [...] spells spells 0-19 ity of 00:00: [place] 00 Medical Branch Acute on Acute on Disease Active Unive rs chronic chronic 9-11 ity of anemia anemia 00:00: [place] 00 Medical Branch Atypical Atypical Disease Active Unive rs chest pain chest pain 5-09 it y of 00:00: [place] 00 Medical Branch Left arm Left arm [...] Univers nausea nausea - ity of 00:00: [place] [facility] Dysphagia Dysphagia Disease Active 2017-02 Uni vers 2- ity of 00:00: [place] [facility] Fatty Fatty Disease Active Univers liver liver - ity of 00:00: [place] [facility] Abnormal Abnormal Disease Active Unive rs LFTs LFTs 5- ity of 00:00: [place] [facility] Multiple Multiple Disease Active Overview: [...] colon 5-03 ity of polyps polyps 00:00: [place] [facility] History of History of Disease Active U nivers pulmonary pulmonary 2-17 ity of embolism embolism 00:00: [place] [facility] ICD ICD Disease Active Univers (implantab (implantab 2-17 it y of le le 00:00: [place] cardiovert cardiovert 00 Me dical er-defibri er-defibri Br anch llator) in llator) in place place Atrial Atrial Disease Active Univers fibrillati fibrillati 1-16 it y of on on 00:00: [place] [facility] Syncope Syncope Disease Active Univers 1-15 ity of 00:00: [place] [facility] DM DM Disease Active Univers (diabetes (diabetes 8-31 ity of mellitus), mellitus), 00:00[place] type 2 type 2 00 Medical with renal with renal Br anch complicati complicati ons ons Anxiety Anxiety Disease Active Univers ity of [place] [facility] [place] CKD CKD Disease Active Univers (chronic (chronic [...] ity of cardiomyop cardiomyop [place] [facility] ASHLYN Disease Active Univers (obstructi (obstructi it y of ve sleep ve sleep [place] apnea) apnea) Medical [place] Allergies, Adverse Reactions, Alerts Allergy Allergy Status [...] Exposure to Not sure University of SARS-CoV-2 [facility] (event) Branch Alcohol intake 2021-03-29 2021-03-29 Current University of 00:00:00 00:00:00 non-drinker of [facility] alcohol Branch (finding) Tobacco Comment 2021-03-07 2021-03-07 exposed to "a Univer sity of 00:00:00 00:00:00 lot" of passive [place] Med ical smoke from Branch Tobacco use and 2019-12-09 2019-12-09 Never used Universit y of exposure 00:00:00 00:00:00 [facility] Sex Assigned At [birth year] Universit y of 00:00:00 00:00:00 [facility] Smoking Status Start Date Stop Date Source Never smoker [facility] Medications Ordered Filled Start Stop Current Ordering Indication Dosage Frequency Signature Comments Components Source Medication Medication Date Date Medication? Clinician (SIG) Name Name metoprolol Yes 100mg Take 100 Un araseli tartrate 2-25 mg by ity of 100 mg 10:14: mouth 2 [place] tablet 06 (two) Medical times [place] daily. insulin NPH Yes [id number] 10U inject Univers (NOVOLIN N 04-13 10-15 ity of NPH U-100 00:00: Units [place] INSULIN) 00 under the Medica l 100 unit/mL skin every Br anch injection evening. insulin NPH 2021- Yes [id number] 20U inject 20 Univers (HUMULIN N 04-13-24 Units ity of NPH U-100 00:00: 04:59 under the [place] INSULIN) 00 :00 skin every Medic al 100 unit/mL morning Branc h injection for 28 days. OXcarbazepi 2021- No [id number] 150mg Take 1 Univers ne 150 mg 03-3008 tablet by ity of tablet 00:00: 00:00 mouth 2 [place] 00 :00 (two) [facility] daily. After 1 week take 2 PO BID, then in 1 week 3 PO BID and call office for further instructio ns. phenytoin 2021- No [id number] 100mg Take 1 Univers Extended 03-30 capsule by ity of 100 mg 00:00: 05:59 mouth [place] capsule 00 :00 daily for Medical 14 days. Branch insulin NPH 2021- No [id number] inject 15 Univers (HUMULIN N 03-18-23 Units ity of NPH U-100 00:00: 00:00 [place] the [place] INSULIN) 00 :00 skin every Medic al 100 unit/mL morning Branc h injection for 28 days, THEN 11 Units every evening for 28 days. furosemide Yes [id number] 20mg Take 1 Univers 20 mg 1-27 tablet by ity of tablet 00:00: mouth [place] 00 daily. Medical Branch levETIRAcet Yes [id number] 500mg Take 1 Univers am 500 mg 1-27 tablet by ity o f tablet 00:00: mouth 2 [place] 00 (two) Medical times Branch daily. insulin NPH 2021- No [id number] 11U inject 11 Univers (NOVOLIN N 1-27 02-23 Units ity of NPH U-100 00:00: 00:00 [place] the [place] INSULIN) 00 :00 skin every Medic al 100 unit/mL evening. Bran ch injection pantoprazol Yes [id number] 40mg Take 1 Univers e 40 mg EC 1-21 tablet by ity of tablet 00:00: mouth [place] 00 daily. Medical Branch apixaban 2020-02 Yes 5mg Take 1 Univers (ELIQUIS) 5 2-14 tablet by ity of mg tablet 00:00: mouth 2 [place] 00 (two) Medical times Branch daily. atorvastati 2020-02 Yes [id number] 40mg Take 1 Univers n 40 mg 2-14 tablet by ity of tablet 00:00: mouth at [place] 00 bedtime. Medical Branch insulin 2020-02 Yes 8U inject 8 Univer s regular 2-14 Units ity of human 00:00: under the [place] (NOVOLIN R 00 skin Medical REGULAR daily. Branch U-100 Daily at [facility]) 100 noon unit/mL injection Blood-Gluco Yes Check [facility] rs se Meter 5-15 glucose ity of Kit 00:00: once daily [place] 00 before Medical breakfast; Branch Diagnosis code E11.9 blood sugar Yes Check [facility] rs diagnostic 5-15 glucose ity of (BLOOD 00:00: once daily [place] GLUCOSE 00 before Medical TEST) strip breakfast; Br anch Diagnosis code E11.9 Lancets Yes Check [facility] Misc 5-15 glucose ity of 00:00: once daily [place] 00 before Medical breakfast; Branch Diagnosis code E11.9 Immunizations Ordered Filled Immunization Date Status Comments Sour e Immunization Name Name SARS-COV-2 COVID-19 2021-01-31 Completed Unive rsity of MODERNA BOOSTER 00:00:00 [place] Med ical VACCINE Branch Influenza Virus 2020-12-03 Completed Universit y of Vaccine,quad 00:00:00 [place] Medica l Im,preserve Free Branch 65+ Pneumococcal 2020-12-03 Completed [place] o f Polysaccharide, 00:00:00 [facility] ical PPSV23 (PNEUMOVAX) Branch SARS-COV-2 COVID-19 2020-04-26 Completed Unive rsity of MODERNA VACCINE 00:00:00 [facility] Branch SARS-COV-2 COVID-19 2020-03-29 Completed Unive rsity of MODERNA VACCINE 00:00:00 [facility] ical Branch Pneumococcal 13 2019-12-19 Completed Universit y of Conjugate, PCV13 00:00:00 [place] Me dical (Prevnar 13) Branch Influenza Virus 2019-11-22 Completed Universit y of Vaccine Recomb Quad 00:00:00 [facility] Preserv and ABX Branc h Free 18-64 YRS HEP B, Adult Dosage 2018-03-25 Completed Unive rsity of 00:00:00 [facility] HEP B, Adult Dosage 2017-10-10 Completed Unive rsity of 00:00:00 [facility] HEP B, Adult Dosage 2017-09-05 Completed Unive rsity of 00:00:00 [facility] Pneumococcal 13 2015-02-19 Completed Universit y of Conjugate, PCV13 00:00:00 [facility] dical (Prevnar 13) Branch Pneumococcal 2011-02-19 Completed University o f Polysaccharide, 00:00:00 [facility] PPSV23 (PNEUMOVAX) [place] Vital Signs Vital Name Observation Time Observation Value Comments Source Systolic blood 2021-04-13 16:28:00 133 mm[Hg] Univer sity [facility] pressure [facility] Diastolic blood 2021-04-13 16:28:00 59 mm[Hg] [facility] Heart rate 2021-04-13 16:28:00 78 /min [facility] Body weight 2021-04-13 16:28:00 85.684 kg [facility] BMI 2021-04-13 16:28:00 36.89 kg/m2 [facility] Oxygen saturation 2021-04-13 16:28:00 98 /min [facility] in Arterial blood [facility] by Pulse oximetry Procedures This patient has no known procedures. Encounters Start End Encounter Admission Attending Care Care Encounter Source Date/Time Date/Time Type Type Clinicians Facility Department ID 2021-11-25 2021-11-25 Outpatient Moustapha ADAM [facility] [id number] [facility] 10:20:00 10:20:00 RADHA [id number] [facility] [place] [facility] 2021-11-25 2021-11-25 [facility] [id number] Univers 10:20:00 10:20:00 RADHA [facility] [place] [facility] 2021-06-10 2021-06-10 [facility]patient [facility] [id number] Univers 10:46:49 23:59:00 RADHA [facility] [place] [facility] 2021-06-10 2021-06-10 Outpatient Moustapha [facility] [id number] Univers 11:00:00 11:00:00 RADHA [id number] [facility] [place] [facility] 2021-04-13 2021-04-13 Office Tin [facility] [id number] Univers 10:00:00 11:12:56 Visit [facility] [id number] it y of [place] [id number] Bernabe as ERIKA?BLEA [phone] Or sherif [address] MEDICAL OFFICE BUILDING 2020-05-20 2020-05-20 Telephone YANA Samano [id number] 00:00:00 00:00:00 Teri RENEE [id number] [facility] [id number] Results This patient has no known results.
[2021-06-20 08:33] LABS: Absolute Lymphocytes (CBC) 1.4 K/uL (0.7-4.9); Hematocrit 31.2 % (36.0-45.0); MPV 9.6 fL (7.6-11.3)
[2021-06-20 09:23] LABS: Protime INR 1.06
[2021-06-20 09:35] LABS: Potassium 4.5 mmol/L (3.5-5.1)
--- NOTE | 2021-06-20 09:46 | RAD REPORT ---
EXAM DESCRIPTION: Lou Single View06/20/2021 9:12 am CLINICAL HISTORY: Shortness of breath COMPARISON: June 18, 2021 FINDINGS: The lungs appear clear of acute infiltrate. The heart is mildly to moderately and enlarge d. Pacemaker leads are in place. IMPRESSION: No acute abnormalities displayed
[2021-06-20] MEDS ORDERED: FUROSEMIDE 40 MG/4 ML VIAL ONE (10:25)
--- NOTE | 2021-06-20 11:20 | ER ---
Nurse's Notes [facility] Name: Teena Simpson Age: 76 yrs Sex: Female : 1945 Arrival Date: 06/20/2021 Time: 07:58 Bed 4 Private MD: Diagnosis: Dyspnea, unspecified;Unspecified combined systolic (congestive) and diastolic (congestive) heart failure Presentation: 06/20 08:06 Chief complaint: Patient's son or daughter states: Pt was seen x 2 days ago for SOB and vg1 was told if still feeling SOB to return to the ED. Pt states 'I feel like I cant breath'. Denies chest pain or cough; states "its uncomfortable and I cant sleep at night". Coronavirus screen: Vaccine status: Patient reports receiving the 2nd dose of the covid vaccine. Client denies travel out of the [place] in the last 14 days. Client presents with at least one sign or symptom that may indicate coronavirus-19. Standard/surgical mask placed on the client. Ebola Screen: Patient denies exposure to infectious person. Patient denies travel to an Ebola-affected area in the 21 days before illness onset. Initial Sepsis Screen: Does the patient meet any 2 criteria? No. Patient's initial sepsis screen is negative. Does the patient have a suspected source of infection? No. Patient's initial sepsis screen is negative. Risk Assessment: Do you want to hurt yourself or someone else? Patient reports no desire to harm self or others. Onset of symptoms was June 18, 2021. 08:06 Method Of Arrival: Wheelchair vg1 08:06 Acuity: TYSON 3 vg1 Triage Assessment: 08:08 General: Appears in no apparent distress. uncomfortable, Behavior is cooperative. Pain: vg1 Denies pain. Respiratory: Reports shortness of breath at rest on exertion Onset: The symptoms/episode began/occurred 06/18/21, the patient has mild shortness of breath. Historical: - Allergies: 08:08 Augmentin; vg1 08:08 Cipro; vg1 - Home Meds: 08:08 atorvastatin 40 mg Oral tab 1 tab once daily [Active]; digoxin 125 mcg Oral tab once vg1 daily [Active]; Entresto 24-26 mg Oral tab twice a day [Active]; furosemide 40 mg Oral tab 2 times per day [Active]; gabapentin 300 mg Oral cap nightly [Active]; Lantus 50units Sub-Q soln nightly [Active]; metoprolol succinate 100 mg Oral Tb24 1 tab twice a day [Active]; Novolog 100 unit/mL Sub-Q soln 15 unit twice a day [Active]; Phenytoin 100mg Oral 2 tabs twice a day [Active]; Phenytoin 100mg cap Oral take 1 capsule every morning and 2 capsules in the evening [Active]; spironolactone 25 mg Oral tab once daily [Active]; tizanidine 2 mg Oral cap twice a day [Active]; Xarelto 15 mg Oral tab daily [Active]; - PMHx: 08:08 Anxiety; Atrial Fib; CHF; Diabetes - IDDM; High Cholesterol; Hypertension; Low HR; vg1 Myocardial infarction; neuropathy; Seizures; - PSHx: 08:08 Appendectomy; Pacemaker-Defib; vg1 - Immunization history:: Client reports receiving the 2nd dose of the Covid vaccine. - Social history:: Smoking status: Patient denies any tobacco usage or history of. - Family history:: not pertinent. - Hospitalizations: : No recent hospitalization is reported. Screenin:30 Abuse screen: Denies threats or abuse. 6 08:30 Nutritional screening: No deficits noted. Tuberculosis screening: No symptoms or risk [facility] factors identified. Fall Risk None identified. Assessment: 08:30 General: Appears in no apparent distress. Behavior is calm, cooperative. jh6 Cardiovascular: No deficits noted. Heart tones present Capillary refill < 3 seconds Clubbing of nail beds is absent JVD is absent Patient's skin is warm and dry. Rhythm is regular. Respiratory: No deficits noted. Reports shortness of breath at rest on exertion since 1wk increased sob when laying down. Airway is patent Trachea midline Respiratory effort is even, unlabored, Respiratory pattern is regular, symmetrical. 08:30 Respiratory: Breath sounds with crackles in right posterior lower lobe. 6 10:00 Reassessment: No changes from previously documented assessment. Patient is alert, jh6 oriented x 3, equal unlabored respirations, skin warm/dry/pink. Patient denies pain at this time. 10:00 Respiratory: No deficits noted. Airway is patent Respiratory effort is even, unlabored, jh6 relaxed. 11:51 Reassessment: Patient is alert, oriented x 3, equal unlabored respirations, skin jh6 warm/dry/pink. Patient denies pain at this time. Patient states feeling better. Patient states symptoms have improved. Vital Signs: 08:06 BP 153 / 63; Pulse 70; Resp 18; Temp 97.8; Pulse Ox 100% ; Pain 0/10; vg1 09:23 BP 144 / 54; Pulse 67; Resp 18; Pulse Ox 100% on 2 lpm NC; Pain 0/10; jh6 11:50 BP 135 / 65; Pulse 70; Resp 18; Temp 97.3(TE); Pulse Ox 100% ; Pain 0/10; jh6 ED Course: 07:58 Patient arrived in ED. ds1 07:59 David Fields MD is Attending Physician. rn 08:08 Triage completed. vg1 08:08 Arm band placed on. vg1 08:14 Patient has correct armband on for positive identification. Placed in gown. Bed in low mh5 position. Call light in reach. Side rails up X2. Adult w/ patient. Warm blanket given. bus driver/monitor on. Pulse ox on. NIBP on. 08:14 EKG done, by ED staff, reviewed by David Fields MD. mh5 08:30 Inserted saline lock: 22 gauge in left forearm, using aseptic technique. Blood jh6 collected. 09:02 Pratima Fernández, RN is Primary Nurse. jh6 09:14 XRAY CXR (1 view) In Process Unspecified. EDMS 09:24 SARS-COV-2 RT PCR (Document "Date of Onset" if Symptomatic) Sent. mh5 09:24 Inserted saline lock: 24 gauge in left wrist, using aseptic technique. jh6 09:24 COVID swab sent to lab. mh5 09:24 No provider procedures requiring assistance completed. jh6 11:53 IV discontinued, intact, bleeding controlled, No redness/swelling at site. Pressure jh6 dressing applied. Administered Medications: 10:26 Drug: Lasix (furosemide) 40 mg Route: IVP; Site: left forearm; jh6 11:53 Follow up: Response: No adverse reaction jh6 Point of Care Testing: Guaiac: 10:21 Stool Guaiac: Negative; Stool Hemoccult Control: Pass; rn Outcome: 11:20 Discharge ordered by MD. rn 11:52 Discharged to home via wheelchair. jh6 11:52 Condition: improved 11:52 Discharge instructions given to patient, family, Instructed on discharge instructions, follow up and referral plans. Demonstrated understanding of instructions, follow-up care. 12:07 Patient left the ED. jh6 Signatures: Dispatcher [employer] EDOR TimEdith ds1 David Fields MD MD rn Gabbie Felton Victoria, RN RN vg1 Pratima Fernández RN RN jh6
--- NOTE | 2021-06-20 11:20 | EDPHYS ---
Physician Documentation [facility] Name: Teena Simpson Age: 76 yrs Sex: Female : 1945 Arrival Date: 06/20/2021 Time: 07:58 Bed 4 Private MD: ED Physician David Fields HPI: 06/20 08:10 This 76 yrs old Female presents to ER via Wheelchair with complaints of rn Shortness Of Breath. 08:10 The patient has shortness of breath at rest, with light activity. Onset: The rn symptoms/episode began/occurred 3 day(s) ago. Duration: The symptoms are intermittent. The patient's shortness of breath is aggravated by exertion, light activity, supine position, talking, walking, is alleviated by rest. Associated signs and symptoms: Pertinent negatives: chest pain, non-productive cough, productive cough, diaphoresis, dizziness, fever, hemoptysis. Severity of symptoms: At their worst the symptoms were moderate in the emergency department the symptoms are unchanged. The patient has experienced similar episodes in the past. The patient has been recently seen at the [facility] Emergency Department. Pt reports sob for the last few days, seen here 2 days ago, told everything was ok. Denies feeling ill/fever/chest pain/abd pain/vomiting/blood in stool. Reports compliant with medication, doesn't feel swollen. States feels worse than last visit.. Historical: - Allergies: 08:08 Augmentin; vg1 08:08 Cipro; vg1 - Home Meds: 08:08 atorvastatin 40 mg Oral tab 1 tab once daily [Active]; digoxin 125 mcg Oral tab once vg1 daily [Active]; Entresto 24-26 mg Oral tab twice a day [Active]; furosemide 40 mg Oral tab 2 times per day [Active]; gabapentin 300 mg Oral cap nightly [Active]; Lantus 50units Sub-Q soln nightly [Active]; metoprolol succinate 100 mg Oral Tb24 1 tab twice a day [Active]; Novolog 100 unit/mL Sub-Q soln 15 unit twice a day [Active]; Phenytoin 100mg Oral 2 tabs twice a day [Active]; Phenytoin 100mg cap Oral take 1 capsule every morning and 2 capsules in the evening [Active]; spironolactone 25 mg Oral tab once daily [Active]; tizanidine 2 mg Oral cap twice a day [Active]; Xarelto 15 mg Oral tab daily [Active]; - PMHx: 08:08 Anxiety; Atrial Fib; CHF; Diabetes - IDDM; High Cholesterol; Hypertension; Low HR; vg1 Myocardial infarction; neuropathy; Seizures; - PSHx: 08:08 Appendectomy; Pacemaker-Defib; vg1 - Immunization history:: Client reports receiving the 2nd dose of the Covid vaccine. - Social history:: Smoking status: Patient denies any tobacco usage or history of. - Family history:: not pertinent. - Hospitalizations: : No recent hospitalization is reported. ROS: 08:10 Constitutional: Negative for fever, chills, and weight loss, Eyes: Negative for injury, rn pain, redness, and discharge, ENT: Negative for injury, pain, and discharge, Neck: Negative for injury, pain, and swelling, Cardiovascular: Negative for chest pain, palpitations, and edema, Respiratory: Negative for cough, wheezing, and pleuritic chest pain, Abdomen/GI: Negative for abdominal pain, nausea, vomiting, diarrhea, and constipation, Back: Negative for injury and pain, MS/Extremity: Negative for injury and deformity, Skin: Negative for injury, rash, and discoloration, Neuro: Negative for headache, numbness, tingling, and seizure. Exam: 08:16 Constitutional: This is a well developed, well nourished patient who is awake, alert, rn and in no acute distress. Head/Face: Normocephalic, atraumatic. Eyes: Periorbital areas with no swelling, redness, or edema. Cardiovascular: Regular rate and rhythm. No pulse deficits. Respiratory: Crackles heards at bases. No increased work of breathing, no retractions or nasal flaring. Abdomen/GI: Soft, non-tender Skin: Warm, dry with normal turgor. Normal color with no rashes, no lesions, and no evidence of cellulitis. MS/ Extremity: Pulses equal, no cyanosis. Neurovascular intact. Full, normal range of motion. Equal circumference. 1+ non-pitting edema Neuro: Awake and alert, GCS 15, oriented to person, place, time, and situation. Cranial nerves II-XII grossly intact. Motor strength 5/5 in all extremities. Sensory grossly intact. Cerebellar exam normal. Vital Signs: 08:06 BP 153 / 63; Pulse 70; Resp 18; Temp 97.8; Pulse Ox 100% ; Pain 0/10; vg1 09:23 BP 144 / 54; Pulse 67; Resp 18; Pulse Ox 100% on 2 lpm NC; Pain 0/10; jh6 11:50 BP 135 / 65; Pulse 70; Resp 18; Temp 97.3(TE); Pulse Ox 100% ; Pain 0/10; jh6 MDM: 07:59 Patient medically screened. rn 11:17 Differential diagnosis: Anemia Anxiety Reaction CHF exacerbation, Myocardial Infarction rn Pneumothorax pulmonary edema. Data reviewed: vital signs, nurses notes, lab test result(s), EKG, radiologic studies, plain films, and as a result, I will discharge patient. Counseling: I had a detailed discussion with the patient and/or guardian regarding: the historical points, exam findings, and any diagnostic results supporting the discharge/admit diagnosis, the presence of at least one elevated blood pressure reading (>120/80) during this emergency department visit, lab results, radiology results, the need for outpatient follow up, to return to the emergency department if symptoms worsen or persist or if there are any questions or concerns that arise at home. Response to treatment: the patient's symptoms have markedly improved after treatment, and as a result, I will discharge patient. Special discussion: I discussed with the patient/guardian in detail that at this point there is no indication for admission to the hospital. It is understood, however, that if the symptoms persist or worsen the patient needs to return immediately for re-evaluation. Based on the history and exam findings, there is no indication for further emergent testing or inpatient evaluation. I discussed with the patient/guardian the need to see the primary care provider for further evaluation of the symptoms. ED course: Clear CXR, no oxygen requirement, given some lasix given hx of CHF and elevated BNP, trop neg, no ischemia on ECG, denies any dyspnea here and ambulatory to bathroom without assistance or distress, will dc home with pcp f/u.. 06/20 08:09 Order name: BMP; Complete Time: 09:45 rn 06/20 08:09 Order name: Blood Culture Adult (2) rn 06/20 08:09 Order name: CBC with Diff; Complete Time: 09:45 rn 06/20 08:09 Order name: NT PRO-BNP; Complete Time: 09:45 rn 06/20 08:09 Order name: PT-INR; Complete Time: 09:45 rn 06/20 08:09 Order name: Ptt, Activated; Complete Time: 09:45 rn 06/20 08:09 Order name: XRAY CXR (1 view); Complete Time: 09:47 rn 06/20 08:09 Order name: EKG; Complete Time: 08:10 rn 06/20 08:09 Order name: Cardiac monitoring; Complete Time: 08:15 rn 06/20 08:09 Order name: EKG - Nurse/Tech; Complete Time: 08:15 rn 06/20 09:08 Order name: SARS-COV-2 RT PCR (Document "Date of Onset" if Symptomatic); Complete Time: eb 10:20 06/20 10:23 Order name: LAB Add On eb 06/20 10:31 Order name: Troponin High Sensitivity; Complete Time: 10:52 EDMS 06/20 08:09 Order name: IV Saline Lock; Complete Time: 09:02 rn 06/20 08:09 Order name: Labs collected and sent; Complete Time: 09:02 rn 06/20 08:09 Order name: O2 Per Protocol; Complete Time: 08:15 rn 06/20 08:09 Order name: O2 Sat Monitoring; Complete Time: 08:15 rn Administered Medications: 10:26 Drug: Lasix (furosemide) 40 mg Route: IVP; Site: left forearm; [facility] 11:53 Follow up: Response: No adverse reaction [facility] Point of Care Testing: Guaiac: 10:21 Stool Guaiac: Negative; Stool Hemoccult Control: Pass; rn Disposition Summary: 06/20/21 11:20 Discharge Ordered Location: Home rn Problem: an ongoing problem rn Symptoms: have improved rn Condition: Stable rn Diagnosis - Dyspnea, unspecified rn - Unspecified combined systolic (congestive) and diastolic (congestive) heart failure rn Followup: rn - With: Private Physician - When: As needed - Reason: Recheck today's complaints, Re-evaluation by your physician Discharge Instructions: - Discharge Summary Sheet rn - Shortness of Breath, Adult rn - Living With Heart Failure rn Forms: - Medication Reconciliation Form rn - Thank You Letter rn - 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 Denies feeling ill/fever/chest pain/abd pain/vomiting/blood in stool. Reports compliant with medication, doesn't feel swollen. . rn 08:17 08:10 Constitutional: Negative for fever, chills, and weight loss, rn rn
[2021-06-20 12:15] VITALS: O2SAT 100
[2021-06-20 12:18] VITALS: BP 135/65; TEMP 97.3
--- NOTE | 2021-06-21 10:53 | EKG ---
Test Date: 2021-06-20 Test Time: 08:08:32 [employer]ault Maker: LEYLA MEASUREMENT RESULTS: Intervals: Rate: 66 CA: 146 QRSD: 164 QT: 524 QTc: 549 [place]: P: 51 CA: 146 QRS: -78 T: 88 INTERPRETIVE STATEMENTS: Normal sinus rhythm Left axis deviation Left ventricular hypertrophy with QRS widening and repolarization abnormality Possible Lateral infarct, age undetermined Abnormal ECG Compared to ECG 06/18/2021 19:39:10 Myocardial infarct finding now present Ventricular-paced complex(es) or rhythm no longer present Electronically Signed On 06-21-21 10:50:36 CDT by Ross Graf
== END 2021-06-20 12:07 | disposition home or self-care (01) ==
LOC: ER 07:57
DX: I50.40 Unspecified combined systolic (congestive) and diastolic (congestive) heart failure (principal); I10 Essential (primary) hypertension; E11.9 Type 2 diabetes mellitus without complications; I48.91 Unspecified atrial fibrillation; Z79.4 Long term (current) use of insulin; Z95.810 Presence of automatic (implantable) cardiac defibrillator; Z20.822 Contact with and (suspected) exposure to COVID-19; Z88.1 Allergy status to other antibiotic agents
CPT/HCPCS: 93005; 87040; 85025; 80048; 36415; 85610; 85730; 84484; 83880; 71045; U0003; J1940; 96374; 99284

== ENCOUNTER 2021-08-07 13:14 | Inpatient (IN) | payer OTHER ==
--- OUTSIDE RECORDS SUMMARY | 2021-08-07 13:16 | XMS REPORT | Continuity of Care Document ---
:1945 Author Organization [facility] t Address [address] [place] [address] Care Team Providers Name Role Phone Lauren ZELAYA Primary Care Physician Unavailable Bal SQUIRES Attending Clinician BAL Attending Clinician Unavailable Jazmyne BURK, A Attending Clinician Unavailable Payers Payer Name Policy Type Policy Number Effective Date Expiration Date S ource Problems Condition Condition Condition Status Onset Resolution Last Treating Co mments Source Name Details Category Date Date Treatment Clinician Date Atrial Atrial Disease Active Univers tachycardi tachycardi 2-25 it y of a a 00:00: [address] Dizziness Dizziness Disease Active Uni vers and and 2-25 it[place] [address] [place] [address] Branch V-tach V-tach Disease Active Univers 1-22 ity of 00:00: [address] GI bleed GI bleed Disease Active Unive rs 1-17 ity of 00:00: [address] Rectal Rectal Disease Active Overview: Univer s bleeding bleeding 1-17 Formattin ity of 00:00: g of this note Medical might be Branch different from the original. 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 Witness Osteopenia Osteopenia Disease Active 2020-02 U nivers 1-09 ity of 00:00: [place] 00 Medical Branch UTI UTI Disease Active 2019-02 Univers (urinary (urinary 0-08 ity of tract tract 00:00: [place] infection) infection) 00 Sd dical Branch Chronic Chronic Disease Active 2019-02 Univers systolic systolic 0-08 ity of CHF CHF 00:00: [place] (congestiv (congestiv 00 Me dical e heart e heart Branch failure), failure), NYHA class NYHA class 3 3 Atrial Atrial Disease Active Univers fibrillati fibrillati 9-19 it y of on with on with 00:00: [place] RVR RVR 00 Medical Branch Spontaneou Spontaneou Disease Active 2018-02 U nivers s s 1-21 ity of ecchymoses ecchymoses 00:[place] Multiple Multiple Disease Active 2018-02 Overview: Un araseli thyroid thyroid 0-30 Formattin ity o f nodules nodules 00:00: g of this [place] note Medical might be Branch different from [...] Branch FELICIA (acute FELICIA (acute Disease Active 2019 U lorrieers kidney kidney 0-21 ity of injury) injury) 00:00: [place] 00 Medical Branch Dizzy Dizzy Disease Active 2018-02 Univers spells spells 0-19 ity of 00:00: [place] 00 Medical Branch Acute on Acute on Disease Active Unive rs chronic chronic 9-11 ity of anemia anemia 00:00: [place] [facility] Atypical Atypical Disease Active Unive rs chest pain chest pain 5-09 it y of 00:00: [place] [facility] Left arm Left arm Disease Active Unive rs pain pain 5-08 ity of 00:00: [place] [facility] Arthritis Arthritis Disease Active 2019 Uni vers of lumbar of lumbar 1-07 ity of spine spine 00:00: [place] 00 Medical Branch Degenerati Degenerati Disease Active 2019 U paresh ve ve 1-07 ity of arthritis arthritis 00:00[place] lumbar of lumbar 00 Medi sandra spine spine Branch Spondyloli Spondyloli Disease Active 2019 U paresh sthesis, sthesis, 1-07 ity of lumbar lumbar 00:00: [place] region region 00 Medical Branch DDD DDD [...] 2017-02 Univers 2-26 ity of 00:00: [place] [facility] Acute on Acute on Disease Active 2017-02 Unive rs chronic chronic 2-26 ity of combined combined 00:00: [place] systolic systolic 00 Medica l and and Branch diastolic diastolic congestive congestive heart heart failure failure Chronic Chronic Disease Active 2017-02 Univers nausea nausea 2-26 ity of 00:00: [place] [facility] Dysphagia Dysphagia Disease Active 2017-02 Uni vers 2-26 ity of 00:00: [place] 00 Medical Branch Fatty Fatty Disease Active Univers liver liver 5-21 ity of 00:00: [place] [facility] Abnormal Abnormal Disease Active Unive rs LFTs LFTs 5-11 ity of 00:00: [place] 00 Medical Branch Multiple Multiple Disease Active Overview: Un araseli renal renal 5-11 Formattin ity of cysts cysts 00:00: g of this note Medical might be Branch different from the original. Bosniak Type [address] Hyperkalem Hyperkalem Disease Active U nivers ia ia 5-11 ity of 00:: Medical Branch History of History of Disease Active U nivers colon colon 5-03 ity of polyps polyps 00:00: [place] [facility] History of History of Disease Active U nivers pulmonary pulmonary 2-17 ity of embolism embolism 00:00: [place] [facility] ICD ICD Disease Active Univers (implantab (implantab 2-17 it y of le le 00:00: [place] cardiovert cardiovert 00 Me dical er-defibri er-defibri Br anch llator) in llator) in place place Atrial Atrial Disease Active Univers fibrillati fibrillati 1-16 it y of on on 00:: [place] [facility] Syncope Syncope Disease Active Univers 1-15 ity of 00:00: [place] [facility] Branch DM DM Disease Active Univers (diabetes (diabetes 8-31 ity of mellitus), mellitus), 00:00[place] type 2 type 2 00 Medical with renal with renal Br anch complicati complicati ons ons Anxiety Anxiety Disease Active Univers ity of [facility] CKD CKD Disease Active Univers (chronic (chronic ity of kidney kidney [place] disease) disease) Medica l stage 4, stage 4, Branch GFR 15-29 GFR 15-29 ml/min ml/min Epilepsy Epilepsy Disease Active Unive rs ity of [facility] Esophageal Esophageal Disease Active U nivers reflux reflux ity of [facility] HLD HLD Disease Active Univers (hyperlipi (hyperlipi it y of demia) demia) [facility] HTN HTN Disease Active Univers (hypertens (hypertens it y of ion) ion) [facility] 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 [place] [facility]SHLY[facility] ASHLYN Disease Active Univers (obstructi (obstructi [...] INGREDI 2-13 ity of 00:00: [place] 00 Medical [place] Social History Social Habit Start Date Stop Date Quantity Comments Source Exposure to 2021-07-22 2021-08-01 Not sure [facility]-CoV-2 00:00:00 13:42:00 [facility] (event) Branch Alcohol intake 2021-04-28 2021-04-28 Current University of 00:00:00 00:00:00 non-drinker of [facility] alcohol Branch (finding) Tobacco Comment 2021-03-07 2021-03-07 exposed to "a Univer sity of 00:00:00 00:00:00 lot" of passive [place] Med ical smoke from Branch Tobacco use and 2019-12-09 2019-12-09 Never used Universit y of exposure 00:00:00 00:00:00 [facility] Sex Ass[birth year] At [birth year] Universit y of 00:00:00 00:00:00 [facility] Smoking Status Start Date Stop Date Source Never smoker [facility] Medications Ordered Filled Start Stop Current Ordering Indication Dosage Frequency Signature Comments Components Source Medication Medication Date Date Medication? Clinician (SIG) Name Name amLODIPine 2021- No 10mg Take 10 mg Univers 10 mg 6-13 -13 by mouth ity of tablet 14:01: 00:00 daily. [place] 05 :00 Medical Branch PHENYTOIN Yes 100mg Take 100 Uni vers ORAL 6-13 mg by ity of 13:50: mouth [place] 06 daily. Medical Take 1 Branch capsule by mouth every morning and 2 capsules in the evening. amLODIPine Yes [id number] 10mg Take 1 U nivers 10 mg 6-13 tablet by ity of tablet 00:00: mouth [place] 00 daily. Medical Branch apixaban Yes [id number] 5mg Take 1 Univers (ELIQUIS) 5 6-07 tablet by ity of mg tablet 00:00: mouth 2 [place] 00 (two) Medical times Branch daily. Indication s: atrial fibrillati on OXCARBAZEPI Yes [id number] TAKE 1 Univers NE 150 mg 3-08 TABLET 2 X ity of tablet 00:00: A DAY FOR [place] 00 1 WEEK Medical THEN 2 Branch TABS 2X DAY FOR 1 WEEK 3 TABLES 2XADAY metoprolol Yes 100mg Take 100 Un araseli tartrate 2-25 mg by ity of 100 mg 10:14: mouth 2 [place] tablet 06 (two) Medical times Branch daily. metoprolol Yes 50mg Take 50 mg U nivers succinate 2-25 by mouth ity of XL 50 mg 24 10:14: daily. 1 [place] hr tablet 06 tablet Medical twice a Branch day at 6am and 6pm insulin NPH Yes [id number] 10U inject Univers (NOVOLIN N 2-23 10-15 ity of NPH U-100 00:00: Units [place] INSULIN) 00 under the Medica l 100 unit/mL skin every Br anch injection evening. furosemide Yes [id number] 20mg Take 1 Univers 20 mg 1-27 tablet by ity of tablet 00:00: mouth [place] 00 daily. Medical Branch levETIRAcet Yes [id number] 500mg Take 1 Univers am 500 mg 1-27 tablet by ity o f tablet 00:00: mouth 2 [place] 00 (two) Medical times Branch daily. pantoprazol Yes [id number] 40mg Take 1 Univers e 40 mg EC 1-21 tablet by ity of tablet 00:00: mouth [place] 00 daily. Medical Branch atorvastati 2020-02 Yes [id number] 40mg Take 1 Univers n 40 mg 2-14 tablet by ity of tablet 00:00: mouth at [place] 00 bedtime. Medical Branch insulin 2020-02 Yes 8U inject 8 Univer s regular 2-14 Units ity of human 00:00: under the [place] (NOVOLIN R 00 skin Medical REGULAR daily. Branch U-100 Daily at INSULN) 100 noon unit/mL injection Blood-Gluco Yes Check [...] COVID-19 2021-01-31 Completed Unive rsity of MODERNA 0.25ML 00:00:00 [place] Medi sandra BOOSTER VACCINE Branch Influenza Virus 2020-12-03 Completed Universit y of Vaccine,quad 00:00:00 [place] Medica l Im,preserve Free Branch 65+ Pneumococcal 2020-12-03 Completed University o f Polysaccharide, 00:00:00 [facility] ical PPSV23 (PNEUMOVAX) Branch SARS-COV-2 COVID-19 2020-04-26 Completed Unive rsity of MODERNA VACCINE 00:00:00 [place] Med ical Branch SARS-COV-2 COVID-19 2020-03-29 Completed Unive rsity of MODERNA VACCINE 00:00:00 [place] Med ical Branch Pneumococcal 13 2019-12-19 Completed Universit y of Conjugate, PCV13 00:00:00 [place] Me dical (Prevnar 13) Branch Influenza Virus 2019-11-22 Completed Universit y of Vaccine Recomb Quad 00:00:00 [place] Medical IM, Preserv and ABX Branc h Free 18-64 YRS HEP B, Adult Dosage 2018-03-25 Completed Unive rsity of 00:00:00 [facility] HEP B, Adult Dosage 2017-10-10 Completed Unive rsity of 00:00:00 [facility] HEP B, Adult Dosage 2017-09-05 Completed Unive rsity of 00:00:00 [facility] Pneumococcal 13 2015-02-19 Completed Universit y of Conjugate, PCV13 00:00:00 [facility] dical (Prevnar 13) Branch Pneumococcal 2011-02-19 Completed University o f Polysaccharide, 00:00:00 [facility] ical PPSV23 (PNEUMOVAX) Branch Vital Signs Vital Name Observation Time Observation Value Comments Source Systolic blood 2021-08-01 18:53:00 141 mm[Hg] Univer sity of pressure [facility] Diastolic blood 2021-08-01 18:53:00 56 mm[Hg] Unive rsity of pressure [facility] Heart rate 2021-08-01 18:53:00 69 /min [facility] Oxygen saturation in 2021-08-01 18:53:00 97 /min [facility] Arterial blood by [facility] Pulse oximetry [place] Body temperature 2021-08-01 18:52:00 36.33 Lizz [facility] Respiratory rate 2021-08-01 18:52:00 18 /min [facility] Body height 2021-08-01 18:52:00 152.4 cm [facility] Body weight 2021-08-01 18:52:00 90.22 kg [facility] BMI 2021-08-01 18:52:00 38.84 kg/m2 [facility] Procedures This patient has no known procedures. Encounters Start End Encounter Admission Attending Care Care Encounter Source Date/Time Date/Time Type Type Clinicians Facility Department ID 2021-08-01 2021-08-01 [id number] Univers 13:40:00 14:02:37 Visit Sriram PALOMO [id number] alvino tilley [place] [id number] Deysi [place] [id number] Sd dical NAL 059 Branch BUILDING 2021-08-01 2021-08-01 Outpatient R BAL [facility] [id number] Univers 13:40:00 14:02:37 SRIRAM de oliveira o f [facility] 2020-05-20 2020-05-20 Telephone YANA Samano [id number] 00:00:00 00:00:00 Teri RENEE [id number] [facility] [id number] Results This patient has no known results.
[2021-08-07] MEDS ORDERED: PANTOPRAZOLE 40 MG INJ ONE (13:50)
[2021-08-07] MEDS ORDERED: NA CHLORIDE 0.9% 50 ML ONE (13:50)
[2021-08-07] MEDS ORDERED: CEFTRIAXONE 1000 MG/VIAL ONE (13:50)
[2021-08-07] MEDS ORDERED: NA CHLORIDE 0.9% 1,000 ML ONE (13:50)
[2021-08-07 14:14] LABS: Absolute Lymphocytes (CBC) 1.3 K/uL (0.7-4.9); Hematocrit 31.8 % (36.0-45.0); Lymphocytes % 21.1 % (15.3-44.8); MCV 91.5 fL (80-100); MPV 9.6 fL (7.6-11.3); RBC Red Blood Cell Count 3.47 M/uL (3.86-4.86)
[2021-08-07 14:27] LABS: Bilirubin Total 0.2 mg/dL (0.2-1.0); Potassium 4.4 mmol/L (3.5-5.1); Protein, Total 6.9 g/dL (6.4-8.2)
[2021-08-07 14:41] LABS: Urine Blood 2+ (Negative); Urine Glucose Negative (Negative); Urine Protein 2+ (Negative); Urine pH 6.5 (5.0-7.0)
--- NOTE | 2021-08-07 14:57 | RAD REPORT ---
EXAM DESCRIPTION: CTAbdomen Pelvis Wo Contrast - 08/07/2021 2:45 pm CLINICAL HISTORY: GI bleed COMPARISON: Abdomen Pelvis Wo Contrast dated 01/27/2021; Abdomen Pelvis Wo Contrast dated 08/08/19 18 TECHNIQUE: CT of the abdomen and pelvis was performed. All CT scans are performed using dose optimization technique as appropriate and may include automated exposure control or mA/KV adjustment according to patient size. FINDINGS: Lower chest: Pacemaker. Cardiomegaly. Liver: No acute abnormality or suspicious lesions. Biliary: Cholecystectomy Stomach: No significant focal abnormality. Duodenum: No significant focal abnormality. Pancreas: No significant abnormality. Spleen: No significant abnormality. Adrenal: No suspicious lesions. Kidney/ureter: No hydronephrosis. No renal calculi. Atrophic kidneys. Right renal cyst Retroperitoneum: No retroperitoneal adenopathy. Vascular: No aneurysm. Bowel: Diverticulosis without diverticulitis.. Peritoneum: Small fat containing umbilical hernia. Soft tissue thickening the anterior abdominal wall may represent a small sebaceous cyst. Bladder: Grossly unremarkable. Reproductive: No adnexal masses. Bones: No acute fracture. Grade 1 anterolisthesis of L5 on S1. Other: n/a IMPRESSION: No acute intra-abdominal or pelvic finding. Incidental findings as noted above.
[2021-08-07] MEDS: PANTOPRAZOLE INJ 80 MG in NA CHLORIDE 0.9% 250 ML IV SCH ×3 (15:00→23:48)
[2021-08-07 15:11] LABS: Urine Bacteria <20 /HPF (<20); Urine RBC NONE SEEN /HPF (NONE SEEN)
[2021-08-07] MEDS ORDERED: DEXTROSE 10%-WATER 500 ML IV ONE (15:54)
--- NOTE | 2021-08-07 16:44 | ER ---
Nurse's Notes [facility] Lisbeth Name: Teena Simpson Age: 76 yrs Sex: Female : 1945 Arrival Date: 08/07/2021 Time: 13:15 Bed 16 Private MD: Diagnosis: GI Bleed/ Gastrointestinal hemorrhage, unspecified Presentation: 08/07 13:27 Chief complaint: Patient states: Bright red rectal bleeding with clots since 10 AM ll1 today. No fever or pain. + weak/fatigued. Coronavirus screen: Vaccine status: Patient reports receiving the 2nd dose of the covid vaccine. Client denies travel out of the [place] in the last 14 days. At this time, the client does not indicate any symptoms associated with coronavirus-19. Ebola Screen: Patient denies travel to an Ebola-affected area in the 21 days before illness onset. Initial Sepsis Screen: Does the patient meet any 2 criteria? No. Patient's initial sepsis screen is negative. Does the patient have a suspected source of infection? Yes: Other: rectal bleeding. Risk Assessment: Do you want to hurt yourself or someone else? Patient reports no desire to harm self or others. Onset of symptoms was August 07, 2021. 13:27 Method Of Arrival: Wheelchair ll1 13:27 Acuity: TYSON 3 ll1 Triage Assessment: 13:29 General: Appears uncomfortable, Behavior is calm, cooperative, appropriate for age. ll1 Pain: Denies pain. GI: Reports rectal bleeding. Historical: - Allergies: 13:27 Augmentin; ll1 13:27 Cipro; ll1 - PMHx: 13:27 Hypertension; Myocardial infarction; neuropathy; Low HR; High Cholesterol; Diabetes - ll1 IDDM; CHF; Atrial Fib; Anxiety; Seizures; - PSHx: 13:27 Appendectomy; Pacemaker-Defib; ll1 - Immunization history:: Client reports receiving the 2nd dose of the Covid vaccine. - Social history:: Smoking status: Patient denies any tobacco usage or history of. - Family history:: not pertinent. Screenin:27 Abuse screen: Denies threats or abuse. Denies injuries from another. Nutritional ph screening: No deficits noted. Tuberculosis screening: No symptoms or risk factors identified. Fall Risk None identified. Assessment: 14:05 General: Appears in no apparent distress. comfortable, obese, well groomed, Behavior is ph calm, cooperative, appropriate for age, Denies fever, feeling ill. Pain: Denies pain. Neuro: Level of Consciousness is awake, alert, obeys commands, Oriented to person, place, time, situation. Cardiovascular: Capillary refill < 3 seconds in bilateral fingers Patient's skin is warm and dry. Respiratory: Airway is patent Respiratory effort is even, unlabored. GI: Reports rectal bleeding, bloody stool. Derm: Skin is intact, Skin is pink, warm \T\ dry. 14:40 Reassessment: Patient appears in no apparent distress at this time. Patient and/or ph family updated on plan of care and expected duration. Pain level reassessed. Patient is alert, oriented x 3, equal unlabored respirations, skin warm/dry/pink. Pt ambulated to restroom before going to CT, bright red blood noted in toilet, urine sample obtained. 16:00 Reassessment: Patient appears in no apparent distress at this time. Patient and/or ph family updated on plan of care and expected duration. Pain level reassessed. Patient is alert, oriented x 3, equal unlabored respirations, skin warm/dry/pink. 17:13 Reassessment: Patient appears in no apparent distress at this time. Patient and/or ph family updated on plan of care and expected duration. Pain level reassessed. Patient is alert, oriented x 3, equal unlabored respirations, skin warm/dry/pink. Pt ambulated to restroom, bright red blood noted in toilet, denies pain, VSS. 18:06 Reassessment: Patient appears in no apparent distress at this time. Patient and/or jb4 family updated on plan of care and expected duration. Pain level reassessed. Patient is alert, oriented x 3, equal unlabored respirations, skin warm/dry/pink. 18:51 Reassessment: Patient appears in no apparent distress at this time. Patient and/or jb4 family updated on plan of care and expected duration. Pain level reassessed. Patient is alert, oriented x 3, equal unlabored respirations, skin warm/dry/pink. Vital Signs: 13:27 BP 154 / 64; Pulse 76; Resp 18; Temp 98.9; Pulse Ox 99% on R/A; Weight 90.26 kg; Height ll1 5 ft. 0 in. (152.40 cm); Pain 0/10; 14:30 BP 138 / 55; Pulse 77; Resp 14; Pulse Ox 100% on R/A; ph 15:31 BP 142 / 70; Pulse 74; Resp 18; Pulse Ox 99% on R/A; ph 16:30 BP 148 / 89; Pulse 72; Resp 18; Pulse Ox 98% on R/A; ph 17:16 BP 150 / 91; Pulse 71; Resp 16; Pulse Ox 100% on R/A; ph 18:06 BP 138 / 51; Pulse 74; Resp 16; Pulse Ox 95% on R/A; jb4 13:27 Body Mass Index 38.86 (90.26 kg, 152.40 cm) ll1 ED Course: 13:15 Patient arrived in ED. mr 13:17 Sylvie Peacock MD is Attending Physician. ma2 13:18 Arm band placed on Patient placed in an exam room, on a stretcher. ll1 13:20 Mara Urbina, WM is Primary Nurse. ph 13:28 Patient has correct armband on for positive identification. Placed in gown. Bed in low ph position. Call light in reach. Side rails up X 1. Pulse ox on. NIBP on. Door closed. Noise minimized. Warm blanket given. 13:29 Triage completed. ll1 14:04 No provider procedures requiring assistance completed. Inserted saline lock: 22 gauge ph in right antecubital area, using aseptic technique. 14:47 Abdomen In Process Unspecified. EDMS 16:43 Sylvie Fritz MD is Hospitalizing Provider. ma2 17:17 Patient admitted, IV remains in place. ph Administered Medications: 14:33 Drug: NS 0.9% 1000 ml Route: IV; Rate: 1 bolus; Site: right antecubital; ph 17:13 Follow up: Response: No adverse reaction; IV Status: Completed infusion; IV Intake: ph 1000ml 14:33 Drug: Pantoprazole 40 mg Route: IVP; Site: right antecubital; ph 17:09 Follow up: Response: No adverse reaction ph 15:16 Drug: Rocephin (cefTRIAXone) 1 grams Route: IV; Rate: calculated rate; Site: right ph antecubital; 15:45 Follow up: Response: No adverse reaction; IV Status: Completed infusion ph 15:30 Drug: Pantoprazole 8 mg/hr Route: IV; Rate: 25 ml/hr; Site: right antecubital; ph 17:11 Follow up: Response: No adverse reaction; IV Status: Infusion continued upon admission ph Medication: 13:28 VIS not applicable for this client. ph Intake: 17:13 IV: 1000ml; Total: 1000ml. ph Outcome: 16:43 Decision to Hospitalize by Provider. fiona 18:51 Admitted to Med/surg accompanied by tech, via stretcher, room 218, with chart, Report jb4 called to WM Boyle 18:51 Condition: stable 18:51 Discharge instructions given to patient, family, Instructed on the need for admit, Demonstrated understanding of instructions. 18:52 Patient left the ED. rajesh Signatures: Dispatcher [employer] EDMT Marisela Deleon mr Mara Urbina, WM RN Ej Mcmillan RN RN jb4 Sylvie Peacock MD MD ma2 Sigrid High RN RN 1
--- NOTE | 2021-08-07 16:44 | EDPHYS ---
Physician Documentation [facility] Name: Teena Simpson Age: 76 yrs Sex: Female : 1945 Arrival Date: 08/07/2021 Time: 13:15 Bed 16 Private MD: ED Physician Sylvie Peacock HPI: 08/07 13:36 This 76 yrs old Female presents to ER via Wheelchair with complaints of Rectal ma2 Bleeding. 13:36 Onset: The symptoms/episode began/occurred gradually, 1 day(s) ago. Associate signs and ma2 symptoms: Pertinent negatives: constipation, diarrhea, dysuria, fever. The patient has not experienced similar symptoms in the past. Historical: - Allergies: 13:27 Augmentin; ll1 13:27 Cipro; ll1 - PMHx: 13:27 Hypertension; Myocardial infarction; neuropathy; Low HR; High Cholesterol; Diabetes - ll1 IDDM; CHF; Atrial Fib; Anxiety; Seizures; - PSHx: 13:27 Appendectomy; Pacemaker-Defib; ll1 - Immunization history:: Client reports receiving the 2nd dose of the Covid vaccine. - Social history:: Smoking status: Patient denies any tobacco usage or history of. - Family history:: not pertinent. ROS: 13:36 Constitutional: Negative for fever, chills, and weight loss. ma2 13:36 All other systems are negative. Exam: 13:36 Constitutional: This is a well developed, well nourished patient who is awake, alert, ma2 and in no acute distress. Head/Face: Normocephalic, atraumatic. Eyes: Pupils equal round and reactive to light, extra-ocular motions intact. Lids and lashes normal. Conjunctiva and sclera are non-icteric and not injected. Cornea within normal limits. Periorbital areas with no swelling, redness, or edema. ENT: Nares patent. No nasal discharge, no septal abnormalities noted. Tympanic membranes are normal and external auditory canals are clear. Oropharynx with no redness, swelling, or masses, exudates, or evidence of obstruction, uvula midline. Mucous membranes moist. Neck: Trachea midline, no thyromegaly or masses palpated, and no cervical lymphadenopathy. Supple, full range of motion without nuchal rigidity, or vertebral point tenderness. No Meningismus. Chest/axilla: Normal chest wall appearance and motion. Nontender with no deformity. No lesions are appreciated. Cardiovascular: Regular rate and rhythm with a normal S1 and S2. No gallops, murmurs, or rubs. Normal PMI, no JVD. No pulse deficits. Respiratory: Lungs have equal breath sounds bilaterally, clear to auscultation and percussion. No rales, rhonchi or wheezes noted. No increased work of breathing, no retractions or nasal flaring. Abdomen/GI: Soft, non-tender, with normal bowel sounds. No distension or tympany. No guarding or rebound. No evidence of tenderness throughout. Skin: Warm, dry with normal turgor. Normal color with no rashes, no lesions, and no evidence of cellulitis. MS/ Extremity: Pulses equal, no cyanosis. Neurovascular intact. Full, normal range of motion. Neuro: Awake and alert, GCS 15, oriented to person, place, time, and situation. Cranial nerves II-XII grossly intact. Motor strength 5/5 in all extremities. Sensory grossly intact. Cerebellar exam normal. Normal gait. Vital Signs: 13:27 BP 154 / 64; Pulse 76; Resp 18; Temp 98.9; Pulse Ox 99% on R/A; Weight 90.26 kg; Height ll1 5 ft. 0 in. (152.40 cm); Pain 0/10; 14:30 BP 138 / 55; Pulse 77; Resp 14; Pulse Ox 100% on R/A; ph 15:31 BP 142 / 70; Pulse 74; Resp 18; Pulse Ox 99% on R/A; ph 16:30 BP 148 / 89; Pulse 72; Resp 18; Pulse Ox 98% on R/A; ph 17:16 BP 150 / 91; Pulse 71; Resp 16; Pulse Ox 100% on R/A; ph 18:06 BP 138 / 51; Pulse 74; Resp 16; Pulse Ox 95% on R/A; jb4 13:27 Body Mass Index 38.86 (90.26 kg, 152.40 cm) ll1 MDM: 13:36 Differential diagnosis: hemorrhoids, condyloma, gi bleeding lower. ma2 15:12 Patient medically screened. ma2 16:42 Data reviewed: vital signs, nurses notes. Counseling: I had a detailed discussion with ma2 the patient and/or guardian regarding: the historical points, exam findings, and any diagnostic results supporting the discharge/admit diagnosis, the presence of at least one elevated blood pressure reading (>120/80) during this emergency department visit, the need for outpatient follow up. Response to treatment: the patient's symptoms have markedly improved after treatment. ED course: Discussed with Dr. Puckett GI doctor, and he advised that he will be able to come and see the patient,. 08/07 13:24 Order name: CBC with Diff; Complete Time: 15:00 [facility] 08/07 13:24 Order name: CMP; Complete Time: 15:00 [facility] 08/07 13:24 Order name: Lipase; Complete Time: 15:00 [facility] 08/07 13:24 Order name: Urine Microscopic Only; Complete Time: 15:12 [facility] 08/07 14:42 Order name: Urine Dipstick-Ancillary; Complete Time: 15:00 [facility] 08/07 16:31 Order name: COVID-19 SARS RT PCR (Document "Date of Onset" if Symptomatic) 08/07 17:11 Order name: Basic Metabolic Panel [facility] 08/07 17:11 Order name: Basic Metabolic Panel [facility] 08/07 17:11 Order name: CBC with Automated Diff [facility] 08/07 17:11 Order name: CBC with Automated Diff [facility] 08/07 17:11 Order name: Hematocrit [facility] 08/07 17:11 Order name: Hematocrit [facility] 08/07 17:11 Order name: Hematocrit [facility] 08/07 17:11 Order name: Hemoglobin [facility] 08/07 14:28 Order name: Abdomen ; Complete Time: 15:00 [facility] 08/07 17:11 Order name: CONS Physician Consult [facility] 08/07 17:11 Order name: NPO [facility] 08/07 17:11 Order name: EKG Electrocardiogram [facility] 08/07 17:11 Order name: EKG Electrocardiogram [facility] 08/07 17:11 Order name: Hemoglobin [facility] 08/07 17:11 Order name: Hemoglobin [facility] 08/07 17:11 Order name: Protime (+INR) [facility] 08/07 17:11 Order name: Protime (+INR) [facility] 08/07 17:11 Order name: PTT, Activated Partial Thromb [facility] 08/07 17:11 Order name: PTT, Activated Partial Thromb [facility] 08/07 13:24 Order name: IV Saline Lock; Complete Time: 14:04 [facility] 08/07 13:24 Order name: Labs collected and sent; Complete Time: 14:04 [facility] 08/07 13:24 Order name: Urine Dipstick-Ancillary (obtain specimen); Complete Time: 15:30 [facility] 08/07 17:11 Order name: EKG Electrocardiogram EDMS 08/07 17:11 Order name: EKG Electrocardiogram EDMS 08/07 17:11 Order name: EKG Electrocardiogram EDMS 08/07 17:11 Order name: EKG Electrocardiogram EDMS 08/07 17:11 Order name: EKG Electrocardiogram EDMS 08/07 17:11 Order name: EKG Electrocardiogram EDMS 08/07 17:11 Order name: EKG Electrocardiogram EDMS 08/07 17:11 Order name: EKG Electrocardiogram EDMS 08/07 17:11 Order name: EKG Electrocardiogram EDMS Administered Medications: 14:33 Drug: NS 0.9% 1000 ml Route: IV; Rate: 1 bolus; Site: right antecubital; ph 17:13 Follow up: Response: No adverse reaction; IV Status: Completed infusion; IV Intake: ph 1000ml 14:33 Drug: Pantoprazole 40 mg Route: IVP; Site: right antecubital; ph 17:09 Follow up: Response: No adverse reaction ph 15:16 Drug: Rocephin (cefTRIAXone) 1 grams Route: IV; Rate: calculated rate; Site: right ph antecubital; 15:45 Follow up: Response: No adverse reaction; IV Status: Completed infusion ph 15:30 Drug: Pantoprazole 8 mg/hr Route: IV; Rate: 25 ml/hr; Site: right antecubital; ph 17:11 Follow up: Response: No adverse reaction; IV Status: Infusion continued upon admission ph Disposition Summary: 08/07/21 16:43 Hospitalization Ordered Hospitalization Status: Inpatient Admission ma2 Provider: Sylvie Fritz Location: Telemetry/MedSurg (Inpatient) ma2 Condition: Stable ma2 Problem: new ma2 Symptoms: are unchanged ma2 Bed/Room Type: Standard [facility] Room Assignment: 218(08/07/21 18:01) dw Diagnosis - GI Bleed/ Gastrointestinal hemorrhage, unspecified ma Forms: - Medication Reconciliation Form ma2 - SBAR form ar2 Signatures: Dispatcher [employer] EDMS Julia Huertas RN RN dw Mara Urbina RN RN Sylvie Peacock MD MD ma2 Sigrid High RN RN ll1 Corrections: (The following items were deleted from the chart) 14:28 13:27 Abdomen Pelvis W Con+CT.RAD.BRZ ordered. EDWA EDWA 18:01 16:43 fiona logan
[2021-08-07] MEDS ORDERED: ACETAMINOPHEN 500 MG TAB PO PRN (17:07)
[2021-08-07] MEDS ORDERED: MORPHINE 2 MG/ML SYR IV PRN (17:07)
[2021-08-07] MEDS ORDERED: PANTOPRAZOLE INJ 80 MG in NA CHLORIDE 0.9% 250 ML IV SCH (18:00)
[2021-08-07] MEDS ORDERED: NA CHLORIDE 0.9% 250 ML IV SCH (18:00)
[2021-08-07 20:22] LABS: Hematocrit 33.7 % (36.0-45.0)
[2021-08-07] MEDS ORDERED: D50W 25 GM/50 ML SYRINGE IV PRN (20:44)
[2021-08-07] MEDS ORDERED: GLUCAGON 1 MG/VIAL IM PRN (20:44)
[2021-08-07] MEDS ORDERED: D10W 125 ML IV PRN (20:49)
[2021-08-07] MEDS: INSULIN -REGULAR HUMAN 50 UNIT/0.5 ML ML SQ SCH (21:00)
[2021-08-07] MEDS ORDERED: GOLYTELY 4000 ML PO SCH (21:00)
[2021-08-07] MEDS: ATORVASTATIN 40 MG TAB PO SCH (21:23)
[2021-08-07] MEDS: PHENYTOIN ER 100 MG CAP PO SCH (21:23)
[2021-08-07] MEDS: NA CHLORIDE 0.9% 1,000 ML IV SCH (21:24)
[2021-08-07] MEDS: METOPROLOL XL 100 MG TAB PO SCH (21:36)
[2021-08-07] MEDS ORDERED: DIAZEPAM 5 MG TABLET PO ONE (22:33)
[2021-08-08] MEDS: PANTOPRAZOLE INJ 80 MG in NA CHLORIDE 0.9% 250 ML IV SCH ×3 (00:37→21:00)
[2021-08-08 00:38] LABS: Hematocrit 35.1 % (36.0-45.0)
[2021-08-08 01:02] VITALS: BMI 38.8
[2021-08-08] MEDS: ONDANSETRON 4 MG/2 ML VIAL IV PRN (03:33)
[2021-08-08 06:09] LABS: Absolute Lymphocytes (CBC) 1.2 K/uL (0.7-4.9); Hematocrit 30.3 % (36.0-45.0); Lymphocytes % 18.2 % (15.3-44.8); MCV 92.9 fL (80-100); MPV 10.1 fL (7.6-11.3); RBC Red Blood Cell Count 3.26 M/uL (3.86-4.86)
[2021-08-08 06:15] LABS: Potassium 4.1 mmol/L (3.5-5.1); Protime INR 0.99
[2021-08-08] MEDS: NA CHLORIDE 0.9% 1,000 ML IV SCH ×2 (07:20→20:40)
[2021-08-08] MEDS ORDERED: DEXTROSE 10%-WATER 125 ML IV PRN (07:29)
[2021-08-08] MEDS: INSULIN -REGULAR HUMAN 50 UNIT/0.5 ML ML SQ SCH ×4 (07:30→21:00)
--- NOTE | 2021-08-08 08:24 | P.HP ---
Certification for Inpatient Patient admitted to: Inpatient With expected LOS: >2 Midnights Patient will require the following post-hospital care: None Practitioner: I am a practitioner with admitting privileges, knowledge of patient current condition, hospital course, and medical plan of care. Services: Services provided to patient in accordance with Admission requirements found in Title 42 Section 412.3 of the Code of Federal Regulations Patient History Date of Service: 08/07/21 Reason for admission: LGIB History of Present Illness: PATIENT IS A 76-YEAR-OLD FEMALE WHO PRESENTS TO THE EMERGENCY ROOM WITH LOWER GI BLEEDING. PATIENT STATES SHE HAS NOTICED A RECTAL BLEEDING FOR THE LAST 24 HOURS. SHE DENIES ANY CONSTIPATION. PATIENT HAS A HISTORY OF CORONARY ARTERY DISEASE AND ATRIAL FIBRILLATION. PATIENT HAS A PACEMAKER / DEFIBRILLATOR. SHE HAS BEEN TAKING ELIQUIS ALONG WITH HER OTHER CARDIAC MEDS AND DIABETES MEDICATIONS.. WE WILL REFRAIN FROM ANY ANTICOAGULATION AT THIS TIME. WE WILL MONITOR HER H&H SERIALLY. EMERGENCY ROOM PHYSICIAN SPOKE TO THE PHYSICAL CHEMISTRY TEACHER, DR. RUANO, AND PLAN IS TO DO ENDOSCOPY IN A.M.. Allergies amoxicillin [From Augmentin] Adverse Reaction (Verified 04/07/21 23:03) Nausea/Vomiting ciprofloxacin Adverse Reaction (Verified 04/07/21 23:04) Nausea/Vomiting clavulanic acid [From Augmentin] Adverse Reaction (Verified 04/07/21 23:03) Nausea/Vomiting Home Medications: Amlodipine [Norvasc] 10 mg PO DAILY 08/07/21 Apixaban [Eliquis] 5 mg PO BID 08/07/21 Atorvastatin Calcium [Lipitor] 40 mg PO BEDTIME 08/07/21 Furosemide [Lasix] 20 mg PO DAILY 08/07/21 Insulin -Regular Human [Novolin -R*] See Protocol SQ AC 08/07/21 Insulin NPH Human Isophane [Novolin N] 20 unit SQ 0800,199908/07/21 Metoprolol Succinate [Toprol Xl] 100 mg PO BID 08/07/21 PHENYTOIN ER Cap [Dilantin ER Cap] 100 mg PO DAILY 08/07/21 PHENYTOIN ER Cap [Dilantin ER Cap] 200 mg PO BEDTIME 08/07/21 - Past Medical/Surgical History Has patient received pneumonia vaccine in the past: Yes Diabetic: Yes -: seizures -: afib -: iddm -: hypertension -: hyperlipidemia -: chf -: bladder infection -: cad -: neuropathy -: w?EF 20-25% -: defibrilator -: PNA -: defib/pacemaker placement x2 -: exploratory lap -: appendectomy Psychosocial/ Personal History: Patient lives patient lives at home with family - Family History Father Medical History: Lung disease Mother Medical History: Heart disease, Hypertension, Diabetes Sister Medical History: Diabetes Brother Medical History: Diabetes, Kidney disease - Social History Smoking Status: Never smoker Alcohol use: No CD- Drugs: No Caffeine use: Yes Place of Residence: Home Review of Systems 10-point ROS is otherwise unremarkable Physical Examination - Vital Signs Temperature: 96.8 F Blood Pressure: 180/61 Pulse: 77 Respirations: 14 Pulse Ox (%): 99 - Physical Exam General: Alert, In no apparent distress, Oriented x3 HEENT: Atraumatic, PERRLA, Mucous membr. moist/pink, EOMI, Sclerae nonicteric Neck: Supple, 2+ carotid pulse no bruit, No LAD, Without JVD or thyroid abnormality Respiratory: Clear to auscultation bilaterally, Normal air movement Cardiovascular: Regular rate/rhythm, Normal S1 S2, Systolic murmur Gastrointestinal: Normal bowel sounds, Soft and benign, Non-distended, No tenderness Musculoskeletal: No clubbing, No swelling, No tenderness Integumentary: No rashes Neurological: Normal gait, Normal speech, Normal strength at 5/5 x4 extr, Normal tone, Normal affect Lymphatics: No axilla or inguinal lymphadenopathy - Studies Laboratory Data (last 24 hrs) 08/07/21 14:00: Sodium 141, Potassium 4.4, BUN 66 H, Creatinine 2.14 H, Glucose 104, Total Bilirubin 0.2, AST 17, ALT 22, Alkaline Phosphatase 127 H, Lipase 82 08/07/21 14:00: WBC 6.1, Hgb 10.7 L, Hct 31.8 L, Plt Count 205 Assessment & Plan - Problems (Diagnosis) (1) LGI bleed Current Visit: Yes Status: Acute (2) Chronic systolic heart failure Current Visit: No Status: Acute (3) CKD (chronic kidney disease) Current Visit: No Status: Chronic (4) Diabetes Current Visit: No Status: Chronic Qualifiers: Diabetes mellitus type: type 2 Diabetes mellitus complication status: without complication (5) Hypertension Current Visit: No Status: Chronic Qualifiers: Hypertension type: essential hypertension Qualified Code(s): I10 - Essential (primary) hypertension - Plan 1. CONTINUE WITH IV HYDRATION AND PPI DRIP 2. CONTINUE WITH IV ANTIBIOTICS 3. HOLD ELIQUIS; CONTINUE WITH ADDITIONAL CARDIAC MEDS, DIABETES MEDICATIONS, AND SEIZURE MEDICATIONS 4. NPO 5. GI CONSULTATION 6. MONITOR LFTS AND LIPASE ALONG WITH ELECTROLYTES AND SERIAL H&H. 7. GI AND DVT PROPHYLAXIS Discharge Plan: Home Plan to discharge in: Greater than 2 days - Advance Directives Does patient have a Living Will: No Does patient have a Durable POA for Healthcare: No - Code Status/Comfort Care Code Status Assessed: Yes Code Status: Full Code Critical Care: No Time Spent Managing PTS Care (In Minutes): 45
[2021-08-08] MEDS ORDERED: FUROSEMIDE 20 MG TABLET PO SCH (09:00)
[2021-08-08] MEDS: PHENYTOIN ER 100 MG CAP PO SCH ×2 (09:07→20:58)
[2021-08-08] MEDS: METOPROLOL XL 100 MG TAB PO SCH ×2 (09:07→20:58)
[2021-08-08] MEDS: AMLODIPINE 10 MG TAB PO SCH (09:08)
[2021-08-08] MEDS ORDERED: BISACODYL E.C. 5 MG TAB PO ONE (13:38)
--- NOTE | 2021-08-08 13:39 | P.PN ---
Subjective Date of Service: 08/08/21 Chief Complaint: LGIB Subjective: No new changes (Scheduled for colonoscopy today), Improving Physical Examination - Vital Signs Temperature: 97.1 F Blood Pressure: 144/63 Pulse: 68 Respirations: 16 Pulse Ox (%): 97 - Studies Laboratory Data (last 24 hrs) 08/07/21 14:00: Sodium 141, Potassium 4.4, BUN 66 H, Creatinine 2.14 H, Glucose 104, Total Bilirubin 0.2, AST 17, ALT 22, Alkaline Phosphatase 127 H, Lipase 82 08/07/21 14:00: WBC 6.1, Hgb 10.7 L, Hct 31.8 L, Plt Count 205 Assessment And Plan Physician Review: Patient Assessed, Agree with Above Assessment and Plan Physician Review Additional Text: 08/08/21 13:38 - Physical Exam General: Alert, In no apparent distress, Oriented x3 HEENT: Atraumatic, PERRLA, Mucous membr. moist/pink, EOMI, Sclerae nonicteric Neck: Supple, 2+ carotid pulse no bruit, No LAD, Without JVD or thyroid abnormality Respiratory: Clear to auscultation bilaterally, Normal air movement Cardiovascular: Regular rate/rhythm, Normal S1 S2, Systolic murmur Gastrointestinal: Normal bowel sounds, Soft and benign, Non-distended, No tenderness Musculoskeletal: No clubbing, No swelling, No tenderness Integumentary: No rashes Neurological: Normal gait, Normal speech, Normal strength at 5/5 x4 extr, Normal tone, Normal affect Lymphatics: No axilla or inguinal lymphadenopathy - Studies Laboratory Data (last 24 hrs) 08/07/21 14:00: Sodium 141, Potassium 4.4, BUN 66 H, Creatinine 2.14 H, Glucose 104, Total Bilirubin 0.2, AST 17, ALT 22, Alkaline Phosphatase 127 H, Lipase 82 08/07/21 14:00: WBC 6.1, Hgb 10.7 L, Hct 31.8 L, Plt Count 205 Assessment & Plan - Problems (Diagnosis) (1) LGI bleed Current Visit: Yes Status: Acute (2) Chronic systolic heart failure Current Visit: No Status: Acute (3) CKD (chronic kidney disease) Current Visit: No Status: Chronic (4) Diabetes Current Visit: No Status: Chronic Qualifiers: Diabetes mellitus type: type 2 Diabetes mellitus complication status: without complication (5) Hypertension Current Visit: No Status: Chronic Qualifiers: Hypertension type: essential hypertension Qualified Code(s): I10 - Essential (primary) hypertension Plan Follow colonoscopy today H&H remained stable Continue to avoid anticoagulation Dispo possible home in a.m. Creatinine trending down to 1.7 from admission level of 2.1, continue gentle IV fluid 08/08/21 13:39 Time Spent Managing PTS Care (In Minutes): 35
[2021-08-08] MEDS ORDERED: GOLYTELY 4000 ML PO SCH (14:00)
--- NOTE | 2021-08-08 15:04 | CON ---
Date of Consultation: 08/07/2021 Reason For Consultation: Hematochezia. History Of Present Illness: The patient is a 76-year-old female with history of 2 prior hem atochezia events in March of this year, diabetes, hypertension with coronary artery disease, statu s post PR, hyperlipidemia, congestive heart failure, atrial fibrillation, on Eliquis. The patient pr esented to the hospital with hematochezia, which began at approximately 11 a.m. this morning. She is on Eliquis for the past 3 years. She reports last taken this morning. She reports in March of t his year that she had a similar event of hematochezia and had a colonoscopy at [facility] that revealed div erticulosis, colon polyps, and hemorrhoids. She had a second event that same month in March 2021, back in [facility] and told that it was probably from hemorrhoids and given hemorrhoid medications at that time. The patient is a Jehovah Witness and refuses blood product. Past Medical History: Significant for diabetes, hypertension, hyperlipidemia, coronary artery diseas e, status post PR, congestive heart failure, neuropathy; atrial fibrillation, on Eliquis; generalized anxiety disorder, seizure disorder, pacemaker defibrillator, appendectomy, and end-stage renal disea se. Seen in Nephrology currently in consultation as an outpatient. Allergies: INCLUDE AUGMENTIN AND CIPRO. Medications: See home medication list. Social History: She is a . Six children. No tobacco, but "smoked liked a chair as her son and daughter, who were both in the room with patient now. She denies any alcohol. Family History: Father of pneumonia. Mother of an PR and also had a . Review of Systems: The patient has hematochezia, weakness, but no syncope. She denies any hematemesis, coffee-grounds e mesis, hemoptysis, epistaxis, melena, hematuria. She does have anxiety and depression and takes mult iple teas for her anxiety and help with sleep as well. She denies any chest pain or shortness of dee ath. She does have a history of seizures in the past. Physical Examination: Vital signs: She is approximately 5 foot 3 inches, about 170 pounds. General: She is a well-nourished, well-developed, mildly obese female, no acute distress, in stretch er in the emergency room. HEENT: Normocephalic, atraumatic. Anicteric. Pupils equal, round, and reactive to light. Extraocu lar movements are intact. Oropharynx is clear. Neck: Supple. No masses. Respirations: Clear to auscultation bilaterally. Cardiac: Regular rate and rhythm. No gallops. Abdomen: Soft. Positive bowel sounds. Soft, nontender, and nondistended. No hepatosplenomegaly. Extremities: No clubbing or edema. 2+ pulses. Neurologic: Alert and oriented x3. Grossly nonfocal. 5/5 motor sensation intact to light touch. Laboratory Data Patient: The has a white count of 6.1, hemoglobin 10.7, hematocrit 31.8, MCV of 93, platelet count 205, polys 66, lymphocytes %, monocytes 10%, and eosinophils 3%. Sodium 141 , potassium 4.4, chloride 109, bicarb 25, BUN 66, creatinine 2.14, glucose 104, calcium 8.5, total bi lirubin 0.2, AST of 17, ALT of 22, alk phos of 127, total bilirubin , total protein 6.9, al bumin 3.0, and lipase 82. UA; 2+ blood, 2+ protein, otherwise negative. Serology, COVID-[address] test [address] ws negative. CT abdomen and pelvis was negative. Impression: 1.Hematochezia, probable recurrent diverticular bleeding. The patient had 2 episodes of hematochezi a on April 12, with a colonoscopy revealing diverticulosis, hemorrhoids, and 1 colon polyp that wa s resected. She is on Eliquis for the past 3 years/taken this morning. Bleeding began today at 11 a .m. only to an admission for bleeding, possibly a diverticular in origin with surgical consultation. Interventional Radiology not available bleeding site can be ascertained and treated thera peutically. 2.History of diabetes, hypertension, hyperlipidemia, coronary artery disease, status post myocardial infarction, congestive heart failure, atrial fibrillation, generalized anxiety disorder, , end-stage renal disease, in Nephrology; neuropathy, pacemaker defibrillator, and appendectomy histor y. Recommendations: 1.Check serial H and H and blood transfusion hold Eliquis. Urgent colonoscopy as chapin wiggins I obtained prior to April 12. Colonoscopy report with Interventional Radiology in the future . 2.Surgical consultation now. . CHRISTIE/CAMERON Voice ID: [id number] Report ID: [id number]
--- NOTE | 2021-08-08 18:43 | P.PN ---
Subjective Date of Service: 08/08/21 Chief Complaint: Hematochezia Subjective: No new changes (Stable. Hgb 10.4 to 11.8 range. No hematochezia today.) Physical Examination - Vital Signs Temperature: 97.0 F Blood Pressure: 147/66 Pulse: 69 Respirations: 16 Pulse Ox (%): 96 Assessment And Plan - Current Problems (Diagnosis) (1) Hematochezia Current Visit: Yes Status: Acute (2) Anemia Current Visit: Yes Status: Acute - Plan REC: 1) colonoscopy in AM. 2) monitor labs Physician Review: Patient Assessed, Agree with Above Assessment and Plan
[2021-08-08] MEDS: ATORVASTATIN 40 MG TAB PO SCH (20:59)
[2021-08-09] MEDS: NA CHLORIDE 0.9% 1,000 ML IV SCH ×2 (02:45→10:00)
[2021-08-09] MEDS: PANTOPRAZOLE INJ 80 MG in NA CHLORIDE 0.9% 250 ML IV SCH ×2 (02:45→10:32)
[2021-08-09] MEDS: ONDANSETRON 4 MG/2 ML VIAL IV PRN ×2 (03:55→21:42)
[2021-08-09 06:15] LABS: Absolute Lymphocytes (CBC) 1.4 K/uL (0.7-4.9); Hematocrit 28.7 % (36.0-45.0); Lymphocytes % 19.7 % (15.3-44.8); MCV 92.3 fL (80-100); MPV 10.1 fL (7.6-11.3); RBC Red Blood Cell Count 3.11 M/uL (3.86-4.86)
[2021-08-09 06:28] LABS: Albumin 2.8 g/dL (3.4-5.0); Bilirubin Total 0.2 mg/dL (0.2-1.0); Potassium 3.6 mmol/L (3.5-5.1); Protein, Total 6.3 g/dL (6.4-8.2)
[2021-08-09] MEDS: INSULIN -REGULAR HUMAN 50 UNIT/0.5 ML ML SQ SCH ×4 (07:30→21:00)
[2021-08-09] MEDS: PHENYTOIN ER 100 MG CAP PO SCH ×2 (08:58→21:39)
[2021-08-09] MEDS: AMLODIPINE 10 MG TAB PO SCH (08:58)
[2021-08-09] MEDS: METOPROLOL XL 100 MG TAB PO SCH ×2 (08:59→21:40)
[2021-08-09] MEDS ORDERED: ONDANSETRON 4 MG/2 ML VIAL ONE (11:31)
[2021-08-09] MEDS ORDERED: NA CHLORIDE 0.9% 1,000 ML ONE (11:31)
[2021-08-09] MEDS ORDERED: propofoL 200 MG/20 ML VIAL IV ONE ×2 (12:29)
[2021-08-09] MEDS ORDERED: LIDOCAINE 1% MPF 5 ML VIAL ONE (12:30)
[2021-08-09] MEDS ORDERED: EPINEPHRINE/PF 1 MG/ML AMP ONE (12:35)
--- NOTE | 2021-08-09 13:43 | P.PN ---
Subjective Date of Service: 08/09/21 Chief Complaint: Hematochezia Subjective: No new changes (still hematochezia with bowel movement today Rescheduled for colonoscopy today) Reported transient run of VT for 2 minutes yesterday Physical Examination - Vital Signs Temperature: 97.5 F Blood Pressure: 173/76 Pulse: 89 Respirations: 16 Pulse Ox (%): 98 Assessment And Plan Physician Review: Patient Assessed, Agree with Above Assessment and Plan Physician Review Additional Text: - Physical Exam General: Alert, In no apparent distress, Oriented x3 HEENT: Atraumatic, PERRLA, Mucous membr. moist/pink, EOMI, Sclerae nonicteric Neck: Supple, 2+ carotid pulse no bruit, No LAD, Without JVD or thyroid abnormality Respiratory: Clear to auscultation bilaterally, Normal air movement Cardiovascular: Regular rate/rhythm, Normal S1 S2, Systolic murmur Gastrointestinal: Normal bowel sounds, Soft and benign, Non-distended, No tenderness Musculoskeletal: No clubbing, No swelling, No tenderness Integumentary: No rashes Neurological: Normal gait, Normal speech, Normal strength at 5/5 x4 extr, Normal tone, Normal affect Lymphatics: No axilla or inguinal lymphadenopathy - Studies Laboratory Data (last 24 hrs) 08/07/21 14:00: Sodium 141, Potassium 4.4, BUN 66 H, Creatinine 2.14 H, Glucose 104, Total Bilirubin 0.2, AST 17, ALT 22, Alkaline Phosphatase 127 H, Lipase 82 08/07/21 14:00: WBC 6.1, Hgb 10.7 L, Hct 31.8 L, Plt Count 205 Assessment & Plan - Problems (Diagnosis) (1) LGI bleed Current Visit: Yes Status: Acute (2) Chronic systolic heart failure Current Visit: No Status: Acute (3) CKD (chronic kidney disease) Current Visit: No Status: Chronic (4) Diabetes Current Visit: No Status: Chronic Qualifiers: Diabetes mellitus type: type 2 Diabetes mellitus complication status: without complication (5) Hypertension Current Visit: No Status: Chronic Qualifiers: Hypertension type: essential hypertension Qualified Code(s): I10 - Essential (primary) hypertension 6 acute kidney injurywith admission creatinine of 2.1 Plan Follow colonoscopy today H&H slightly trended down, due to IVF We DC IVF since elevated blood pressure Resume blood pressure medications after colonoscopy today Follow magnesium level, unclear reason for transient DVT, if persistent will obtain cardiology evaluation Continue to avoid anticoagulation Creatinine trended down and now stable at 1.7, likely patient baseline 08/08/21 13:39 08/09/21 13:41 08/09/21 13:42 Time Spent Managing PTS Care (In Minutes): 30
--- NOTE | 2021-08-09 14:03 | ENDO RPT ---
[address], [address] COLONOSCOPY PROCEDURE REPORT EXAM DATE: 08/09/2021 PATIENT NAME: Teena Simpson MR #: [id number] BIRTHDATE: 1945 ATTENDING: [address] STATUS: inpatient - [facility] RULING MACHINE FEEDER: Antonella Hoyt RN, Summer Richardson RN, and Mara Bridges INDICATIONS: The patient is a 76 yr old Female here for a colonoscopy due to hematochezia and anemia PROCEDURE PERFORMED: Colonoscopy MEDICATIONS: Per Anesthesia. ESTIMATED BLOOD LOSS: None CONSENT: The patient understands the risks and benefits of the procedure and understands that these risks include, but are not limited to: sedation, allergic reaction, infection, perforation and/or bleeding. Alternative means of evaluation and treatment include, among others: physical exam, x-rays, and/or surgical intervention. The patient elects to proceed with this endoscopic procedure. DESCRIPTION OF PROCEDURE: During intra-op preparation period all mechanical medical equipment was checked for proper function. Hand hygiene and appropriate measures for infection prevention was taken. Procedure, possible complications, alternatives including, but not limited to possibility of bleeding, perforation, tear, infection, sepsis, need for surgery, need for blood transfusion, were explained to the patient. After the risks, benefits and alternatives of the procedure were thoroughly explained, Informed consent was verified, confirmed and timeout was successfully executed by the treatment team. The patient was placed in the left lateral position. A digital rectal exam was performed and revealed external hemorrhoids and A digital rectal exam was performed and revealed several skin tags. After appropriate level of anesthesia, the scope was passed. The EC-[id number] ([id number]) endoscope was introduced through the anus and advanced to the terminal ileum which was intubated for a short distance. The quality of the prep was fair. The instrument was then slowly withdrawn as the colon was fully examined. Scope withdrawal time was 7 minutes. COLON FINDINGS: Diverticulum was found in the ascending colon. The opening was medium sized. Mild diverticulosis was noted in the sigmoid colon. No bleeding was noted from the diverticulosis. Moderate sized internal and external hemorrhoids were found. Retroflexed views revealed no abnormalities. The scope was then completely withdrawn from the patient and the procedure terminated. ADVERSE EVENTS: There were no complications. IMPRESSIONS: 1. Mediium diverticulum in the ascending colon 2. Mild diverticulosis in the sigmoid colon 3. Moderate sized internal and external hemorrhoids 4. Intubation to terminal ileum RECOMMENDATIONS: 1. Small Bowel Follow Through 2. pillcam / capsule endoscopy RECALL: [address] Dr eSigned: Ash Hall Dr 08/09/2021 2:03 PM cc: Sylvie Fritz CPT CODES: ICD9 CODES: 1. 455.5 External hemorrhoids with other complication 2. 455.9 Residual hemorrhoidal skin tags 3. 562.10 Diverticulosis of colon (without mention of hemorrhage) PATIENT NAME: Teena Simpson MR#: [id number]
[2021-08-09] MEDS: ATORVASTATIN 40 MG TAB PO SCH (21:40)
[2021-08-10 01:25] VITALS: O2SAT 99
[2021-08-10] MEDS: PANTOPRAZOLE INJ 80 MG in NA CHLORIDE 0.9% 250 ML IV SCH ×2 (02:53→12:29)
[2021-08-10 05:39] LABS: Absolute Lymphocytes (CBC) 1.5 K/uL (0.7-4.9); Hematocrit 26.4 % (36.0-45.0); Lymphocytes % 26.6 % (15.3-44.8); MPV 9.8 fL (7.6-11.3); RBC Red Blood Cell Count 2.84 M/uL (3.86-4.86)
[2021-08-10 05:59] LABS: Albumin 2.6 g/dL (3.4-5.0); Bilirubin Total 0.2 mg/dL (0.2-1.0); Potassium 3.8 mmol/L (3.5-5.1); Protein, Total 5.9 g/dL (6.4-8.2)
[2021-08-10] MEDS ORDERED: LIDOCAINE 1% MPF 5 ML VIAL ONE (07:10)
[2021-08-10] MEDS ORDERED: propofoL 200 MG/20 ML VIAL IV ONE (07:10)
[2021-08-10] MEDS: INSULIN -REGULAR HUMAN 50 UNIT/0.5 ML ML SQ SCH ×3 (07:25→16:04)
--- NOTE | 2021-08-10 09:30 | RAD REPORT ---
EXAM DESCRIPTION: RAD - Small Bowel Series - 08/10/2021 9:20 am CLINICAL HISTORY: Gastrointestinal bleeding COMPARISON: None. FINDINGS: Contrast enters the colon by approximately 1 hour The mucosal folds of the small bowel appear normal. No permanent filling defects, obstructing or constricting lesions are seen. The small bowel caliber is normal. IMPRESSION: Unremarkable small bowel series.
[2021-08-10] MEDS: ONDANSETRON 4 MG/2 ML VIAL IV PRN (09:37)
[2021-08-10] MEDS: METOPROLOL XL 100 MG TAB PO SCH (09:39)
[2021-08-10] MEDS: AMLODIPINE 10 MG TAB PO SCH (09:39)
[2021-08-10] MEDS: PHENYTOIN ER 100 MG CAP PO SCH (09:39)
--- NOTE | 2021-08-10 11:27 | P.PN ---
Subjective Date of Service: 08/10/21 Chief Complaint: Hematochezia Subjective: Improving (No further hematochezia. Feels well and wants to go home. Tolerating po diet.) Review of Systems Unremarkable Physical Examination - Vital Signs Temperature: 96.9 F Blood Pressure: 165/66 Pulse: 74 Respirations: 18 Pulse Ox (%): 100 - Physical Exam General: Alert, In no apparent distress, Oriented x3, Cooperative HEENT: Atraumatic, Normocephalic, PERRLA, EOMI Neck: Supple Respiratory: Normal air movement Cardiovascular: Normal pulses Gastrointestinal: Soft and benign, No tenderness, No rebound, No guarding Neurological: Normal speech, Normal strength at 5/5 x4 extr Assessment And Plan - Current Problems (Diagnosis) (1) Hematochezia Current Visit: Yes Status: Acute Comment: Probably diverticular bleed -> resolved. (2) Anemia Current Visit: Yes Status: Acute - Plan REC: 1) okay to discharge 2) monitor labs 3) GI clinic f/u 4) if hematochezia recurs -> advise interventional radiology Physician Review: Patient Assessed, Agree with Above Assessment and Plan
--- NOTE | 2021-08-10 13:10 | EKG ---
Test Date: 2021-08-08 Test Time: 20:50:44 Inspector Soldering: RT More MEASUREMENT RESULTS: Intervals: Rate: 70 MI: 186 QRSD: 152 QT: 528 QTc: 570 [place]: P: 55 MI: 186 QRS: -47 T: 76 INTERPRETIVE STATEMENTS: Electronic ventricular pacemaker Compared to ECG 06/20/2021 08:08:32 Sinus rhythm no longer present Left-axis deviation no longer present Left ventricular hypertrophy no longer present Early repolarization no longer present Myocardial infarct finding no longer present Electronically Signed On 08-10-21 13:09:50 CDT by Ross Graf
--- NOTE | 2021-08-10 13:45 | P.DS ---
Admission Date: 08/07/21 Discharge Date: 08/10/21 Disposition: ROUTINE DISCHARGE Discharge Condition: FAIR Reason for Admission: Hematochezia Brief History of Present Illness: History of Present Illness: PATIENT IS A 76-YEAR-OLD FEMALE WHO PRESENTS TO THE EMERGENCY ROOM WITH LOWER GI BLEEDING. PATIENT STATES SHE HAS NOTICED A RECTAL BLEEDING FOR THE LAST 24 HOURS. SHE DENIES ANY CONSTIPATION. PATIENT HAS A HISTORY OF CORONARY ARTERY DISEASE AND ATRIAL FIBRILLATION. PATIENT HAS A PACEMAKER / DEFIBRILLATOR. SHE HAS BEEN TAKING ELIQUIS ALONG WITH HER OTHER CARDIAC MEDS AND DIABETES MEDICATIONS.. WE WILL REFRAIN FROM ANY ANTICOAGULATION AT THIS TIME. WE WILL MONITOR HER H&H SERIALLY. EMERGENCY ROOM PHYSICIAN SPOKE TO THE PROTOZOOLOGY TEACHER, DR. RUANO, AND PLAN IS TO DO ENDOSCOPY IN A.M.. Allergies amoxicillin [From Augmentin] Adverse Reaction (Verified 04/07/21 23:03) Nausea/Vomiting ciprofloxacin Adverse Reaction (Verified 04/07/21 23:04) Nausea/Vomiting clavulanic acid [From Augmentin] Adverse Reaction (Verified 04/07/21 23:03) Nausea/Vomiting Hospital Course: Patient with history of A. fib on chronic anticoagulation with Eliquis admitted for rectal bleeding. Eliquis was held. She was evaluated by gastroenterology and recommended colonoscopy. She was bowel prep and underwent colonoscopy with findings of mild to moderate diverticulosis of the sigmoid colon. There was also internal and external hemorrhoids. Bleeding was felt to be due to diverticular bleed which has now resolved. Patient hemoglobin initially stabi lized but with IV fluids slowly trending down to 9.0 from 10.3 over 3 days. Patient bleed completely resolve after the colonoscopy. She was started on iron tablets as well as a laxative. She will be discharged home today since tolerating p.o. ambulating well. And to follow-up with GI as outpatient. GI recommended if recurrent lower GI bleed patient might benefit from interventional radiology evaluation to stop area of bleed. Of note patient on admission was noted with elevation in creatinine to 2.1 but improved to 1.7 now Vital Signs/Physical Exam: Temp Pulse Resp BP Pulse Ox 97.5 F 68 18 157/62 H 100 08/10/21 12:00 08/10/21 12:00 08/10/21 12:00 08/10/21 12:00 08/10/21 12:00 General: Alert, In no apparent distress, Oriented x3, Obese HEENT: Atraumatic, Normocephalic, PERRLA Neck: Supple, 2+ carotid pulse no bruit, JVD not distended Respiratory: Clear to auscultation bilaterally, Normal air movement Cardiovascular: No edema, Normal pulses, Regular rate/rhythm, Normal S1 S2 Gastrointestinal: Normal bowel sounds, Soft and benign, Non-distended Musculoskeletal: No clubbing, No swelling Neurological: Normal gait, Normal speech Laboratory Data at Discharge: WBC 5.8 K/uL (4.3-10.9) D 08/10/21 05:10 Hgb 9.0 g/dL (12.0-15.0) L 08/10/21 05:10 Hct 26.4 % (36.0-45.0) L 08/10/21 05:10 Plt Count 173 K/uL (152-406) 08/10/21 05:10 PT 10.9 SECONDS (9.5-12.5) 08/08/21 05:18 INR 0.99 08/08/21 05:18 APTT 29.3 SECONDS (24.3-36.9) 08/08/21 05:18 Sodium 143 mmol/L (136-145) 08/10/21 05:10 Potassium 3.8 mmol/L (3.5-5.1) 08/10/21 05:10 BUN 28 mg/dL (7-18) H 08/10/21 05:10 Creatinine 1.70 mg/dL (0.55-1.3) H 08/10/21 05:10 Glucose 143 mg/dL (74-106) H 08/10/21 05:10 Magnesium Cancelled 08/10/21 13:45 Total Bilirubin 0.2 mg/dL (0.2-1.0) 08/10/21 05:10 AST 63 U/L (15-37) H 08/10/21 05:10 ALT 31 U/L (12-78) 08/10/21 05:10 Alkaline Phosphatase 108 U/L (45-117) 08/10/21 05:10 Lipase 82 U/L (73-393) 08/07/21 14:00 Home Medications: Amlodipine [Norvasc*] 10 mg PO DAILY 08/07/21 Apixaban [Eliquis] 5 mg PO BID 08/07/21 Atorvastatin Calcium [Lipitor] 40 mg PO BEDTIME 08/07/21 Furosemide [Lasix*] 20 mg PO DAILY 08/07/21 Insulin -Regular Human [Novolin -R*] See Protocol SQ AC 08/07/21 Insulin NPH Human Isophane [Novolin N] 20 unit SQ 0800,2000 08/07/21 Metoprolol Succinate [Toprol Xl] 100 mg PO BID 08/07/21 PHENYTOIN ER Cap [Dilantin ER Cap*] 100 mg PO DAILY 08/07/21 PHENYTOIN ER Cap [Dilantin ER Cap*] 200 mg PO BEDTIME 08/07/21 Ferrous Gluconate 324 mg PO DAILY #30 tablet 08/10/21 Sennosides/Docusate Sodium [Senna-Docusate Sodium Tablet] 1 each PO DAILY #30 tablet 08/10/21 New Medications: Ferrous Gluconate 324 mg PO DAILY #30 tablet Sennosides/Docusate Sodium [Senna-Docusate Sodium Tablet] 1 each PO DAILY #30 tablet Diet: ADA Followup: NIKKI JORDAN [Primary Care Provider] - Ash Ruano MD [ASSOCIATE-ACTIVE - CAN ADMIT] - 1-2 Weeks Time spent managing pt's care (in minutes): 35
[2021-08-10 17:17] VITALS: BP 135/66; TEMP 97.9
== END 2021-08-10 17:00 | disposition home or self-care (01) | DRG 378 ==
LOC: ER 13:14 → ERHOLD 17:07 → 2ND 18:15
PROVIDERS: ADMIT Hospitalist; ATTEND Hospitalist
PROC: 0DJD8ZZ Inspection of Lower Intestinal Tract, Via Natural or Artificial Opening Endoscopic (ICD-10-PCS; principal; 2021-08-09 11:30)
DX: K57.31 Diverticulosis of large intestine without perforation or abscess with bleeding (principal); I50.22 Chronic systolic (congestive) heart failure; N17.9 Acute kidney failure, unspecified; I25.10 Atherosclerotic heart disease of native coronary artery without angina pectoris; I48.91 Unspecified atrial fibrillation; K64.4 Residual hemorrhoidal skin tags; K64.8 Other hemorrhoids; D64.9 Anemia, unspecified; E11.40 Type 2 diabetes mellitus with diabetic neuropathy, unspecified; E11.22 Type 2 diabetes mellitus with diabetic chronic kidney disease; I12.9 Hypertensive chronic kidney disease with stage 1 through stage 4 chronic kidney disease, or unspecified chronic kidney disease; N18.9 Chronic kidney disease, unspecified; Z79.4 Long term (current) use of insulin; Z95.810 Presence of automatic (implantable) cardiac defibrillator; Z79.01 Long term (current) use of anticoagulants; Z88.0 Allergy status to penicillin; Z20.822 Contact with and (suspected) exposure to COVID-19; I25.2 Old myocardial infarction
CPT/HCPCS: 36415; 74176; 74250; 80048; 80053; 81003; 81015; 82947; 83690; 83735; 85014; 85018; 85025; 85610; 85730; 93005; 96361; 96365; 96366; 96368; 99285; C9113; J0171; J2405; J2704; J7030; J7050; U0003

== ENCOUNTER 2021-09-14 21:28 | Emergency (ER) | payer OTHER ==
[2021-09-15 00:01] LABS: Absolute Lymphocytes (CBC) 1.6 K/uL (0.7-4.9); Hematocrit 30.7 % (36.0-45.0); Lymphocytes % 19.3 % (15.3-44.8); MCV 95.2 fL (80-100); MPV 10.7 fL (7.6-11.3); RBC Red Blood Cell Count 3.23 M/uL (3.86-4.86)
[2021-09-15 00:41] LABS: SARS-CoV-2 Antigen Rapid Res Positive (Negative)
[2021-09-15 02:22] LABS: Potassium 4.2 mmol/L (3.5-5.1); Troponin High Sensitivity 25.9 pg/mL (<58.9)
--- NOTE | 2021-09-15 02:42 | ER ---
Nurse's Notes [facility] Name: Teena Simpson Age: 76 yrs Sex: Female : 1945 Arrival Date: 09/14/2021 Time: 21:30 Bed 4 Private MD: Diagnosis: Weakness;SARS-associated coronavirus as the cause of diseases classified elsewhere Presentation: 09/14 21:45 Chief complaint: Patient states: feeling tired with a headache since this morning. [facility] Coronavirus screen: Vaccine status: Patient reports receiving the 2nd dose of the covid vaccine. fatigue, headache. Ebola Screen: Patient negative for fever greater than or equal to 101.5 degrees Fahrenheit, and additional compatible Ebola Virus Disease symptoms. Initial Sepsis Screen: Does the patient meet any 2 criteria? No. Patient's initial sepsis screen is negative. Does the patient have a suspected source of infection? No. Patient's initial sepsis screen is negative. Risk Assessment: Do you want to hurt yourself or someone else? Patient reports no desire to harm self or others. Onset of symptoms was September 14, 2021. 21:45 Method Of Arrival: Wheelchair [facility] 21:45 Acuity: TYSON 3 [facility] Triage Assessment: 21:47 Headache History: Denies prior headaches. General: Appears in no apparent distress. [facility] ill, Behavior is calm, cooperative, appropriate for age. Pain: Complains of pain in head Pain currently is 2 out of 10 on a pain scale. Pain began 1 day ago. Also complains of no other associated symptoms. Neuro: No deficits noted. Historical: - Allergies: 21:47 Augmentin; [facility] 21:47 Cipro; [facility] - Home Meds: 21:47 atorvastatin 40 mg Oral tab 1 tab once daily [Active]; digoxin 125 mcg Oral tab once bh1 daily [Active]; Entresto 24-26 mg Oral tab twice a day [Active]; furosemide 40 mg Oral tab 2 times per day [Active]; gabapentin 300 mg Oral cap nightly [Active]; Lantus 50units Sub-Q soln nightly [Active]; metoprolol succinate 100 mg Oral Tb24 1 tab twice a day [Active]; Novolog 100 unit/mL Sub-Q soln 15 unit twice a day [Active]; Phenytoin 100mg Oral 2 tabs twice a day [Active]; Phenytoin 100mg cap Oral take 1 capsule every morning and 2 capsules in the evening [Active]; spironolactone 25 mg Oral tab once daily [Active]; tizanidine 2 mg Oral cap twice a day [Active]; Xarelto 15 mg Oral tab daily [Active]; - PMHx: 21:47 Anxiety; Atrial Fib; CHF; Diabetes - IDDM; High Cholesterol; Hypertension; Low HR; bh1 Myocardial infarction; neuropathy; Seizures; - PSHx: 21:47 Appendectomy; Pacemaker-Defib; bh1 - Immunization history:: Adult Immunizations up to date. - Social history:: Smoking status: Patient denies any tobacco usage or history of. Screenin/28 01:40 Abuse screen: Denies threats or abuse. Nutritional screening: No deficits noted. Tuberculosis screening: No symptoms or risk factors identified. Fall Risk None identified. Assessment: 09/14 23:21 General: Appears in no apparent distress. comfortable, Behavior is calm, cooperative. kl Pain: Denies pain. Neuro: No deficits noted. Level of Consciousness is awake, alert, obeys commands, Oriented to person, place, time, situation, Furniture Mover Helper are equal bilaterally Moves all extremities. Gait is steady, Speech is normal, Facial symmetry appears normal. Cardiovascular: No deficits noted. Rhythm is Respiratory: No deficits noted. Airway is patent Trachea midline Respiratory effort is even, unlabored, Respiratory pattern is regular, symmetrical, Breath sounds are clear. GI: No deficits noted. Abdomen is round non-distended, Bowel sounds present X 4 quads. Abd is soft and non tender X 4 quads. Reports nausea. : No deficits noted. No signs and/or symptoms were reported regarding the genitourinary system. EENT: No deficits noted. No signs and/or symptoms were reported regarding the EENT system. Derm: No deficits noted. No signs and/or symptoms reported regarding the dermatologic system. Musculoskeletal: Reports generalized weakness. Vital Signs: 21:45 BP 132 / 69; Pulse 116; Resp 20; Temp 98.2; Pulse Ox 99% on R/A; Weight 85.73 kg; bh1 Height 5 ft. 0 in. (152.40 cm); Pain 2/10; 23:24 BP 134 / 64; Pulse 88; Resp 18; Pulse Ox 97% on R/A; kl 09/15 00:30 BP 133 / 61; Pulse 77; Resp 18; Pulse Ox 99% on R/A; kl 01:38 BP 130 / 47; Pulse 73; Pulse Ox 96% on R/A; kl 03:00 BP 146 / 57; Pulse 82; Resp 20; Pulse Ox 97% on R/A; Pain 0/10; kl 09/14 21:45 Body Mass Index 36.91 (85.73 kg, 152.40 cm) [facility] ED Course: 09/14 21:30 Patient arrived in ED. bp1 21:47 Triage completed. bh1 21:47 Arm band placed on right wrist. bh1 22:45 Myla Melendez, WM is Primary Nurse. kd3 22:46 Gianfranco Myers MD is Attending Physician. kdr 23:41 XRAY Chest (1 view) In Process Unspecified. EDMS 23:44 Missed attempt(s): 20 gauge in left antecubital area. kl 23:45 Inserted saline lock: 24 gauge in left hand, using aseptic technique. kl 09/15 00:01 Basic Metabolic Panel Sent. kl 00:01 CBC with Diff Sent. kl 00:01 Troponin HS Sent. kl 01:39 No apparent distress. Resting quietly. Awaiting: lab redraw. kl 03:01 Patient has correct armband on for positive identification. kl 03:01 No provider procedures requiring assistance completed. IV discontinued, intact, kl bleeding controlled, No redness/swelling at site. Pressure dressing applied. Administered Medications: No medications were administered Medication: 02:18 VIS not applicable for this client. kd3 Outcome: 02:42 Discharge ordered by . kdr 03:00 Discharged to home ambulatory, with family. kl 03:00 Condition: stable 03:00 Discharge instructions given to patient, family, Instructed on discharge instructions, follow up and referral plans. medication usage, Demonstrated understanding of instructions, follow-up care, medications, Prescriptions given X 1. 03:01 Patient left the ED. kl Signatures: Dispatcher [employer] EDMS Viri High RN RN kl Rittger, Kevin, MD MD [facility] Emily Max bp1 Myla Melendez RN RN kd3 Kirsty Lopez RN RN [facility] Corrections: (The following items were deleted from the chart) 09/14 22:39 21:45 Acuity: TYSON 4 bh1 bh1
--- NOTE | 2021-09-15 02:42 | EDPHYS ---
Physician Documentation [facility] Name: Teena Simpson Age: 76 yrs Sex: Female : 1945 Arrival Date: 09/14/2021 Time: 21:30 Bed 4 Private MD: ED Physician Gianfranco Myers HPI: 09/15 06:15 This 76 yrs old Female presents to ER via Wheelchair with complaints of High kdr Blood Pressure, Headache, Dizziness. 06:16 He is feeling generally tired and weak. She also has a headache. She has been overall kdr weak since diagnosed with COVID about a month ago. This morning she developed a headache and presents now with those combination of symptoms. The headache is mild to moderate and she does not appear toxic or in need of acute intervention at this time. She otherwise appears stable on initial presentation. Onset: The symptoms/episode began/occurred suddenly. The patient has not experienced similar symptoms in the past. The patient has not recently seen a physician. Historical: - Allergies: 09/14 21:47 Augmentin; bh1 21:47 Cipro; bh1 - Home Meds: 21:47 atorvastatin 40 mg Oral tab 1 tab once daily [Active]; digoxin 125 mcg Oral tab once bh1 daily [Active]; Entresto 24-26 mg Oral tab twice a day [Active]; furosemide 40 mg Oral tab 2 times per day [Active]; gabapentin 300 mg Oral cap nightly [Active]; Lantus 50units Sub-Q soln nightly [Active]; metoprolol succinate 100 mg Oral Tb24 1 tab twice a day [Active]; Novolog 100 unit/mL Sub-Q soln 15 unit twice a day [Active]; Phenytoin 100mg Oral 2 tabs twice a day [Active]; Phenytoin 100mg cap Oral take 1 capsule every morning and 2 capsules in the evening [Active]; spironolactone 25 mg Oral tab once daily [Active]; tizanidine 2 mg Oral cap twice a day [Active]; Xarelto 15 mg Oral tab daily [Active]; - PMHx: 21:47 Anxiety; Atrial Fib; CHF; Diabetes - IDDM; High Cholesterol; Hypertension; Low HR; bh1 Myocardial infarction; neuropathy; Seizures; - PSHx: 21:47 Appendectomy; Pacemaker-Defib; bh1 - Immunization history:: Adult Immunizations up to date. - Social history:: Smoking status: Patient denies any tobacco usage or history of. ROS: 09/15 06:16 Constitutional: Negative for fever, chills, and weight loss, patient feels generally kdr weak but without focal complaints other than mild to moderate headache Eyes: Negative for injury, pain, redness, and discharge, ENT: Negative for injury, pain, and discharge, Neck: Negative for injury, pain, and swelling, Respiratory: Negative for shortness of breath, cough, wheezing, and pleuritic chest pain, Abdomen/GI: Negative for abdominal pain, nausea, vomiting, diarrhea, and constipation, Back: Negative for injury and pain, MS/Extremity: Negative for injury and deformity, Skin: Negative for injury, rash, and discoloration, Neuro: Negative for headache, weakness, numbness, tingling, and seizure activity. Psych: Negative for depression, anxiety, suicide ideation, homicidal ideation, and hallucinations, Allergy/Immunology: Negative for hives, rash, and allergies, Endocrine: Negative for neck swelling, polydipsia, polyuria, polyphagia, and marked weight changes, Hematologic/Lymphatic: Negative for swollen nodes, abnormal bleeding, and unusual bruising. Exam: 06:16 Constitutional: This is a well developed, well nourished patient who is awake, alert, kdr and in no acute distress. Head/Face: Normocephalic, atraumatic. Eyes: Pupils equal round and reactive to light, extra-ocular motions intact. Lids and lashes normal. Conjunctiva and sclera are non-icteric and not injected. Cornea within normal limits. Periorbital areas with no swelling, redness, or edema. Neck: Trachea midline, no thyromegaly or masses palpated, and no cervical lymphadenopathy. Supple, full range of motion without nuchal rigidity, or vertebral point tenderness. No Meningismus. Chest/axilla: Normal chest wall appearance and motion. Nontender with no deformity. No lesions are appreciated. Cardiovascular: Regular rate and rhythm with a normal S1 and S2. No gallops, murmurs, or rubs. Normal PMI, no JVD. No pulse deficits. Respiratory: Lungs have equal breath sounds bilaterally, clear to auscultation and percussion. No rales, rhonchi or wheezes noted. No increased work of breathing, no retractions or nasal flaring. Abdomen/GI: Soft, non-tender, with normal bowel sounds. No distension or tympany. No guarding or rebound. No evidence of tenderness throughout. Back: No spinal tenderness. No costovertebral tenderness. Full range of motion. Skin: Warm, dry with normal turgor. Normal color with no rashes, no lesions, and no evidence of cellulitis. MS/ Extremity: Pulses equal, no cyanosis. Neurovascular intact. Full, normal range of motion. Neuro: Awake and alert, GCS 15, oriented to person, place, time, and situation. Cranial nerves II-XII grossly intact. Motor strength 5/5 in all extremities. Sensory grossly intact. Cerebellar exam normal. Normal gait. Psych: Awake, alert, with orientation to person, place and time. Behavior, mood, and affect are within normal limits. 06:59 ECG was reviewed by the Attending Physician. kdr Vital Signs: 09/14 21:45 BP 132 / 69; Pulse 116; Resp 20; Temp 98.2; Pulse Ox 99% on R/A; Weight 85.73 kg; bh1 Height 5 ft. 0 in. (152.40 cm); Pain 2/10; 23:24 BP 134 / 64; Pulse 88; Resp 18; Pulse Ox 97% on R/A; kl 09/15 00:30 BP 133 / 61; Pulse 77; Resp 18; Pulse Ox 99% on R/A; kl 01:38 BP 130 / 47; Pulse 73; Pulse Ox 96% on R/A; kl 03:00 BP 146 / 57; Pulse 82; Resp 20; Pulse Ox 97% on R/A; Pain 0/10; kl 09/14 21:45 Body Mass Index 36.91 (85.73 kg, 152.40 cm) formerly [facility] MDM: 02:42 Patient medically screened. kdr 06:16 Data reviewed: vital signs, nurses notes, lab test result(s), radiologic studies. kdr Counseling: I had a detailed discussion with the patient and/or guardian regarding: the historical points, exam findings, and any diagnostic results supporting the discharge/admit diagnosis, lab results, radiology results, the need for outpatient follow up. 09/14 22:46 Order name: Basic Metabolic Panel; Complete Time: 02:35 kdr 09/14 22:46 Order name: CBC with Diff; Complete Time: 02:05 kdr 09/14 22:46 Order name: Troponin HS; Complete Time: 02:35 kdr 09/15 00:15 Order name: SARS RAPID; Complete Time: 02:05 mw2 09/15 02:50 Order name: Glucose, Ancillary Testing EDMS 09/14 22:46 Order name: XRAY Chest (1 view) kdr 09/14 22:46 Order name: EKG; Complete Time: 22:49 kdr 09/14 22:46 Order name: Cardiac monitoring; Complete Time: 00:01 kdr 09/14 22:46 Order name: EKG - Nurse/Tech; Complete Time: 23:31 kdr 09/14 22:46 Order name: IV Saline Lock; Complete Time: 00: kdr 09/14 22:46 Order name: Labs collected and sent; Complete Time: 00: kdr 09/14 22:46 Order name: O2 Per Protocol; Complete Time: 00:31 kdr 09/14 22:46 Order name: O2 Sat Monitoring; Complete Time: 00:31 kdr EC:59 Rate is 83 beats/min. Rhythm is irregular, Paced with Unifocal PVCs. QRS [place] is kdr Normal. MI interval is normal. QRS interval is normal. QT interval is normal. Clinical impression: No evidence of ischemia and Paced rhythm. Administered Medications: No medications were administered Disposition Summary: 09/15/21 02:42 Discharge Ordered Location: Home kdr Problem: an acute exacerbation kdr Symptoms: have improved kdr Condition: Stable kdr Diagnosis - Weakness kdr - SARS-associated coronavirus as the cause of diseases classified elsewhere kdr Followup: kdr - With: Private Physician - When: 2 - 3 days - Reason: If symptoms return, Further diagnostic work-up, Recheck today's complaints, Continuance of care, Re-evaluation by your physician Discharge Instructions: - Discharge Summary Sheet kdr - Fatigue kdr - 10 Things You Can Do to Manage Your COVID-19 Symptoms at Home - [facility] kdr - Viral Illness, Adult kdr - COVID-19: Quarantine vs. Isolation - [facility] kdr - Prevent the Spread of COVID-19 if You Are Sick - [facility] kdr Forms: - Medication Reconciliation Form kdr - Thank You Letter kdr Prescriptions: - Ibuprofen 600 mg Oral Tablet - take 1 tablet by ORAL route every 6 hours As needed take with food; 30 tablet; kdr Refills: 0, Product Selection Permitted Signatures: Dispatcher [employer] EDMS Gianfranco Myers MD MD [facility] Kirsty Lopez RN RN 1 Corrections: (The following items were deleted from the chart) 00:27 00:00 SARS-COV-2 RT PCR+[id number] ordered. EDMS EDMS
[2021-09-15 05:06] VITALS: TEMP 98.2
[2021-09-15 05:15] VITALS: BP 146/57; O2SAT 97
--- NOTE | 2021-09-15 11:38 | RAD REPORT ---
EXAM DESCRIPTION: RAD - Chest Single View - 09/14/2021 11:39 pm CLINICAL HISTORY: HTN. COMPARISON: None. TECHNIQUE: Single view AP chest radiograph(s). FINDINGS: Mild perihilar interstitial thickening. No focal infiltrate identified. No pleural effusio n. No pneumothorax. Borderline cardiac size status post AICD. No significant osseous abnormality. IMPRESSION: No acute cardiopulmonary abnormality identified by radiograph. Electronically signed by: Viviana Suárez MD 09/14/2021 11:48 PM CDT Due to temporary technical issues with the PACS/Fluency reporting system, reports are being signed by the in house radiologists without review as a courtesy to insure prompt reporting. The interpreting radiologist is fully responsible for the content of the report.
--- NOTE | 2021-09-15 13:04 | EKG ---
Test Date: 2021-09-14 Test Time: 23:30:23 Balance Wheel Arm Burnisher: ANNETTE MEASUREMENT RESULTS: Intervals: Rate: 83 WI: 146 QRSD: 146 QT: 474 QTc: 556 Delta: P: 62 WI: 146 QRS: -75 T: 98 INTERPRETIVE STATEMENTS: Ventricular-paced complex Electronically Signed On 09-15-21 13:03:22 CDT by Armond Moore
== END 2021-09-15 03:01 | disposition home or self-care (01) ==
LOC: ER 21:28
DX: U07.1 COVID-19 (principal); R51.9 Headache, unspecified; I10 Essential (primary) hypertension; E11.9 Type 2 diabetes mellitus without complications; Z79.4 Long term (current) use of insulin; I50.9 Heart failure, unspecified; I48.91 Unspecified atrial fibrillation; Z79.01 Long term (current) use of anticoagulants; Z95.810 Presence of automatic (implantable) cardiac defibrillator; Z88.1 Allergy status to other antibiotic agents
CPT/HCPCS: 36415; 71045; 80048; 82947; 84484; 85025; 87811; 93005; 99284

== ENCOUNTER 2021-11-04 16:16 | Observation (INO) | payer OTHER ==
--- OUTSIDE RECORDS SUMMARY | 2021-11-04 16:20 | XMS REPORT | Continuity of Care Document ---
:1945 Author Organization [facility] t Address [address] [place] [address] Care Team Providers Name Role Phone MOISES ZELAYA Lauren Primary Care Physician Unavailable SRIRAM SELBY Attending Clinician Unavailable RADHA ADAM Attending Clinician Unavailable AMITA GOMEZ Attending Clinician Unavailable AMITA GOMEZ Attending Clinician Unavailable KIA ACKERMAN Attending Clinician Unavailable Alexey Wen MD Attending Clinician ALEXEY WEN Attending Clinician Unavailable Sriram Selby MD Attending Clinician ARACELIS GARCIA Attending Clinician Unavailable ARACELIS GARCIA Attending Clinician Unavailable AFIA ZABALA Attending Clinician Unavailable SABINA BRUSH Attending Clinician Unavailable Teri Samano RN Attending Clinician Unavailable Payers Payer Name Policy Type Policy Number Effective Date Expiration Date S catarino MEDICARE PART A [id number] 2011 \\T\\ B 00:00:00 Problems Condition Condition Condition Status Onset Resolution [...] Added automatic ally from request for surgery [id number] Refusal of Refusal of Disease Active 2020-02 U paresh blood blood 2-13 [place]y [place] transf[place] 00 Medical patient is patient is Br [facility] Osteopenia Osteopenia Disease Active 2020-02 U nivers 1-09 ity of 00:00: [place] 00 Medical Branch UTI UTI Disease Active 2019-02 Univers (urinary (urinary 0-08 ity of tract tract 00:00: [place] infection) infection) 00 Mi dical Branch Chronic Chronic Disease Active 2019-02 [...] f nodules nodules 00:00: g of this [place] note Medical might be Branch different from the original. "no worrisome features" per [place] 12/18/18 PAF PAF Disease Active 2019-1 Univers (paroxysma (paroxysma 0-21 it y of l atrial l atrial 00:00: [place] fibrillati fibrillati 00 Me dical on) on) Branch Chronic Chronic Disease Active 2018-02 Univers diastolic diastolic 0-21 ity of congestive congestive 00:00: [place] heart heart 00 Medical failure failure Branch Obesity Obesity Disease Active 2018-02 Univers (BMI (BMI 0-21 ity of 30-39.9) 30-39.9) 00:00: [place] 00 Medical Branch Orthostati Orthostati Disease Active 2018-02 U paresh c c 0-21 ity of hypotensio hypotensio 00:[place] 00 Medical Branch FELICIA (acute FELICIA (acute Disease Active 2018-02 U nivrhys kidney kidney 0-21 ity of injury) injury) 00:00: [place] [facility] Dizzy Dizzy Disease Active 2018-02 Univers spells spells 0-19 ity of 00:00: [place] 00 Medical Branch Acute on Acute on Disease Active Unive rs chronic chronic 9-11 ity of anemia anemia 00:00: [place] [facility] Atypical Atypical Disease Active Unive rs chest pain chest pain 5-09 it y of 00:00: [place] 00 Medical Branch Left arm Left arm Disease Active Unive rs pain pain 5-08 ity of 00:00: [place] 00 Medical Branch Arthritis Arthritis Disease Active 2019 Uni vers of lumbar of lumbar 1-07 ity of spine spine 00:00: [place] 00 Medical Branch Degenerati Degenerati Disease Active 2019 U paresh ve ve 1-07 ity of arthritis arthritis 00:00[place] lumbar of lumbar 00 Medi sandra spine spine Branch Spondyloli 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, sthesis, 1-07 ity of lumbar lumbar 00:00: [place] region region 00 Medical Branch DDD DDD Disease Active 2019- Univers (degenerat (degenerat 1-07 it y of fernando disc fernando disc 00:00: [place] disease), disease), 00 Medi sandra lumbar lumbar Branch Osteoarthr Osteoarthr Disease Active 2019- U paresh itis of itis of 1-07 [...] Univers nausea nausea 2-26 ity of 00:00: [place] [address] Medical Branch Dysphagia Dysphagia Disease Active 2017-02 Uni vers 2-26 ity of 00:00: [place] [facility] Fatty Fatty Disease Active Univers liver liver 5- ity of 00:00: [place] [facility] Abnormal Abnormal Disease Active Unive rs LFTs LFTs 5-11 ity of 00:00: [place] [facility] Multiple Multiple Disease Active Overview: Un araseli renal renal 5- Formattin ity of cysts cysts 00:00: g of this note Medical might be Branch different from the original. Bosniak Type [address] Hyperkalem Hyperkalem Disease Active U nivers ia ia 5-11 ity of 00:00: [place] [facility] History of History of Disease Active U nivers colon colon 5-03 ity of polyps polyps 00:00: [place] [address] Medical Branch History of History of Disease Active U nivers pulmonary pulmonary 2-17 ity of embolism embolism 00:00: [place] [facility] ICD ICD Disease Active Univers (implantab (implantab 2-17 it y of le le 00:00: [place] cardiovert cardiovert 00 Me dical er-defibri er-defibri Br anch llator) in llator) in place place Atrial Atrial Disease Active Univers fibrillati fibrillati 1-16 it y of on on 00:: [place] [facility] Syncope Syncope Disease Active Univers 1-15 ity of 00:00: [place] [address] Medical Branch DM DM Disease Active Univers (diabetes (diabetes 8-31 ity of mellitus), mellitus), 00:[place] type 2 type 2 00 Medical with renal with renal Br anch complicati complicati ons ons Anxiety Anxiety Disease Active Univers ity of [facility] CKD CKD Disease Active Univers (chronic (chronic ity of kidney kidney [place] disease) disease) Medica l stage 4, stage 4, Branch GFR 15-29 GFR 15-29 ml/min ml/min Epilepsy Epilepsy Disease Active Unive rs ity of [facility] Esophageal Esophageal Disease Active U nivers reflux reflux ity of [facility] HLD HLD Disease Active Univers (hyperlipi (hyperlipi it y of demia) demia) [facility] HTN HTN Disease Active Univers (hypertens (hypertens it y of ion) ion) [facility] 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 [place] [facility] Disease Active Univers (obstructi (obstructi it y of ve sleep ve sleep [place] apnea) apnea) [facility] Allergies, Adverse Reactions, Alerts Allergy Allergy Status Severity Reaction(s) Onset Inactive Treating Comm ents Source Name Type Date Date Clinician Ciproflo Drug Active Other - See 2020-02 myalgia Un araseli xacin Intolera comments 2-13 ity of nce 00:00: [place] 00 [facility] Amoxicil Drug Active Other - See 2020-02 Myalgia Un araseli ryder-Pot Intolera comments 2-13 ity o f Clavulan nce 00:00: [place] ate 00 [facility] AMOXICIL DRUG Active Low Other-Cmnt 2020-02 Univ ers RYDER-POT 2-13 ity of CLAVULAN 00:00: [place] ATE 00 [facility] CIPROFLO DRUG Active Low Other-Cmnt 2020-02 Univ ers XACIN INGREDI 2-13 ity of 00:00: [place] 00 [facility] Social History Social Habit Start Date Stop Date Quantity Comments Source History of Passive smoker University of tobacco use [facility] Exposure to 2021-07-22 2021-08-01 Not sure University of SARS-CoV-2 00:00:00 13:42:00 [facility] (event) [place] Alcohol intake 2021-04-28 2021-04-28 Current University of 00:00:00 00:00:00 non-drinker of [facility] alcohol (finding) Branch Tobacco use and 2021-03-07 2021-03-07 Smokeless tobacco Un iversity of exposure 00:00:00 00:00:00 non-user [facility] Tobacco Comment 2021-03-07 2021-03-07 exposed to "a Univer sity of 00:00:00 00:00:00 lot" of passive [place] Med ical smoke from Branch Sex [birth year] Universit y of 00:00:00 00:00:00 [facility] Smoking Status Start Date Stop Date Source Never smoked tobacco [facility] Medications Ordered Filled Start Stop Current Ordering Indication Dosage Frequency Signature Comments Components Source Medication Medication Date Date Medication? Clinician (SIG) Name Name amLODIPine 2021- No 10mg Take 10 mg Univers 10 mg 6-13 06-13 by mouth ity of tablet 14:01: 00:00 daily. [place] 05 :00 [facility] Branch PHENYTOIN Yes 100mg Take 100 Uni vers ORAL 6-13 mg by ity of 13:50: mouth [place] 06 daily. Medical Take 1 Branch capsule by mouth every morning and 2 capsules in the evening. PHENYTOIN Yes 100mg Take 100 Uni vers ORAL 6-13 mg by ity of 13:50: mouth [place] 06 daily. Medical Take 1 Branch capsule by mouth every morning and 2 capsules in the evening. amLODIPine Yes [id number] 10mg Take 1 U nivers 10 mg 6-13 tablet by ity of tablet 00:00: mouth [place] 00 daily. Medical Branch amLODIPine 0 Yes [id number] 10mg Take 1 U nivers 10 mg 6-13 tablet by ity of tablet 00:00: mouth [place] 00 daily. [facility] Branch apixaban Yes [id number] 5mg Take 1 Univers (ELIQUIS) 5 6-07 tablet by ity of mg tablet 00:00: mouth 2 [place] 00 (two) Medical times [place] daily. Indication s: atrial fibrillati on apixaban Yes [id number] 5mg Take 1 Univers (ELIQUIS) 5 6-07 tablet by ity of mg tablet 00:00: mouth 2 00 (two) Medical times [place] daily. Indication s: atrial fibrillati on OXCARBAZEPI 2021- Yes [id number] TAKE 1 Univers NE 150 mg 3-08 TABLET 2 X ity of tablet 00:00: A DAY FOR [place] 00 1 WEEK Medical THEN 2 Branch TABS 2X DAY FOR 1 WEEK 3 TABLES 2XADAY OXCARBAZEPI 2021- Yes [id number] TAKE 1 Univers NE 150 mg 3-08 TABLET 2 X ity of tablet 00:00: A DAY FOR 00 1 WEEK Medical THEN 2 Branch TABS 2X DAY FOR 1 WEEK 3 TABLES 2XADAY metoprolol 2021-0 Yes 100mg Take 100 Un araseli tartrate 2-25 mg by ity of 100 mg 10:14: mouth 2 [place] tablet 06 (two) Medical times Branch daily. metoprolol 2021-0 Yes 50mg Take 50 mg U nivers succinate 2-25 by mouth ity of XL 50 mg 24 10:14: daily. 1 [place] tablet 06 tablet Medical twice a Branch day at 6am and 6pm metoprolol 2021-0 Yes 100mg Take 100 Un araseli tartrate 2-25 mg by ity of 100 mg 10:14: mouth 2 [place] tablet 06 (two) Medical times Branch daily. metoprolol 2021-0 Yes 50mg Take 50 mg U nivers succinate 2-25 by mouth ity of XL 50 mg 24 10:14: daily. 1 [place] hr tablet 06 tablet Medical twice a Branch day at 6am and 6pm insulin NPH 0 Yes [id number] 10U inject Univers (NOVOLIN N 04-13 10-15 ity of NPH U-100 00:00: Units [place] INSULIN) 00 under the Medica l 100 unit/mL skin every Br anch injection evening. insulin NPH 0 Yes [id number] 10U inject Univers (NOVOLIN N 04-13 10-15 ity of NPH U-100 00:00: Units [place] INSULIN) 00 under the Medica l 100 unit/mL skin every Br anch injection evening. furosemide 2021-0 Yes [id number] 20mg Take 1 Univers 20 mg 1-27 tablet by ity of tablet 00:00: mouth 00 daily. Medical Branch levETIRAcet 2021-0 Yes [id number] 500mg Take 1 Univers am 500 mg 1-27 tablet by ity o f tablet 00:00: mouth 2 [place] 00 (two) Medical times Branch daily. furosemide 2021-0 Yes [id number] 20mg Take 1 Univers 20 mg 1-27 tablet by ity of tablet 00:00: mouth [place] 00 daily. Medical Branch levETIRAcet 2021-0 Yes [id number] 500mg Take 1 Univers am 500 mg 1-27 tablet by ity o f tablet 00:00: mouth 2 00 (two) Medical times Branch daily. pantoprazol Yes [id number] 40mg Take 1 Univers e 40 mg EC 1-21 tablet by ity of tablet 00:00: mouth [place] 00 daily. Medical Branch pantoprazol Yes [id number] 40mg Take 1 Univers e 40 mg EC 1-21 tablet by ity of tablet 00:00: mouth [place] 00 daily. Medical Branch atorvastati 2020-02 Yes [id number] 40mg Take 1 Univers n 40 mg 2-14 tablet by ity of tablet 00:00: mouth at [place] 00 bedtime. Medical Branch insulin 2020-02 Yes 8U inject 8 Univer s regular 2-14 Units ity of human 00:00: under the [place] (NOVOLIN R 00 skin Medical REGULAR daily. Branch U-100 Daily at [facility]) 100 noon unit/mL injection atorvastati 2020-02 Yes [id number] 40mg Take 1 Univers n 40 mg 2-14 tablet by ity of tablet 00:00: mouth at [place] 00 bedtime. Medical Branch insulin 2020-02 Yes 8U inject 8 Univer s regular 2-14 Units ity of human 00:00: under the [place] (NOVOLIN R 00 skin Medical REGULAR daily. Branch U-100 Daily at [facility]) 100 noon unit/mL injection Blood-Gluco Yes Check [...] Immunizations Ordered Filled Immunization Date Status Comments [facility] e Immunization Name Name SARS-COV-2 COVID-19 2021-01-31 Completed Unive rsity of MODERNA 0.25ML 00:00:00 [place] Medi sandra BOOSTER VACCINE Branch SARS-COV-2 COVID-19 2021-01-31 Completed Unive rsity of MODERNA 0.25ML 00:00:00 [place] Medi sandra BOOSTER VACCINE Branch Influenza Virus 2020-12-03 Completed Universit y of Vaccine,quad 00:00:00 [place] Medica l Im,preserve Free Branch 65+ Pneumococcal 2020-12-03 Completed University o f Polysaccharide, 00:00:00 [place] Med ical PPSV23 (PNEUMOVAX) Branch Influenza Virus 2020-12-03 Completed Universit y of Vaccine,quad 00:00:00 [place] Medica l Im,preserve Free Branch 65+ Pneumococcal 2020-12-03 Completed University o f Polysaccharide, 00:00:00 [facility] ical PPSV23 (PNEUMOVAX) Branch SARS-COV-2 COVID-19 2020-04-26 Completed Unive rsity of MODERNA VACCINE 00:00:00 [facility] Branch SARS-COV-2 COVID-19 2020-04-26 Completed Unive rsity of MODERNA VACCINE 00:00:00 [facility] Branch SARS-COV-2 COVID-19 2020-03-29 Completed Unive rsity of MODERNA VACCINE 00:00:00 [facility] Branch SARS-COV-2 COVID-19 2020-03-29 Completed Unive rsity of MODERNA VACCINE 00:00:00 [facility] Branch Pneumococcal 13 2019-12-19 Completed Universit y of Conjugate, PCV13 00:00:00 [facility] dical (Prevnar 13) Branch Pneumococcal 13 2019-12-19 Completed Universit y of Conjugate, PCV13 00:00:00 [facility] dical (Prevnar 13) Branch Influenza Virus 2019-11-22 Completed Universit y of Vaccine Recomb Quad 00:00:00 [place] Medical IM, Preserv and ABX Branc h Free 18-64 YRS Influenza Virus 2019-11-22 Completed Universit y of Vaccine Recomb Quad 00:00:00 [place] Medical IM, Preserv and ABX Branc h Free 18-64 YRS HEP B, Adult Dosage 2018-03-25 Completed Unive rsity of 00:00:00 [facility] HEP B, Adult Dosage 2018-03-25 Completed Unive rsity of 00:00:00 [facility] HEP B, Adult Dosage 2017-10-10 Completed Unive rsity of 00:00:00 [facility] HEP B, Adult Dosage 2017-10-10 Completed Unive rsity of 00:00:00 [facility] HEP B, Adult Dosage 2017-09-05 Completed Unive rsity of 00:00:00 [facility] HEP B, Adult Dosage 2017-09-05 Completed Unive rsity of 00:00:00 [facility] Pneumococcal 13 2015-02-19 Completed Universit y of Conjugate, PCV13 00:00:00 [facility] dical (Prevnar 13) Branch Pneumococcal 13 2015-02-19 Completed Universit y of Conjugate, PCV13 00:00:00 [facility] dical (Prevnar 13) Branch Pneumococcal 2011-02-19 Completed University o f Polysaccharide, 00:00:00 [facility] ical PPSV23 (PNEUMOVAX) Branch Pneumococcal 2011-02-19 Completed University o f Polysaccharide, 00:00:00 [facility] ical PPSV23 (PNEUMOVAX) Branch Vital Signs Vital Name Observation Time Observation Value Comments Source Systolic blood 2021-08-01 18:53:00 141 mm[Hg] Univer sity of pressure [facility] Diastolic blood 2021-08-01 18:53:00 56 mm[Hg] Unive rsity of pressure [facility] Heart rate 2021-08-01 18:53:00 69 /min [facility] Oxygen saturation in 2021-08-01 18:53:00 97 /min [facility] Arterial blood by [facility] Pulse oximetry Branch Body temperature 2021-08-01 18:52:00 36.33 Lizz [facility] Respiratory rate 2021-08-01 18:52:00 18 /min [facility] Body height 2021-08-01 18:52:00 152.4 cm [facility] Body weight 2021-08-01 18:52:00 90.22 kg [facility] BMI 2021-08-01 18:52:00 38.84 kg/m2 [facility] [place] [facility] Procedures This patient has no known procedures. Encounters Start End Encounter Admission Attending Care Care Encounter Source Date/Time Date/Time Type Type Clinicians Facility Department ID 2022-01-31 2022-01-31 Outpatient R BAL [facility] [id number] Univers 14:20:00 14:20:00 SRIRAM de oliveira o f [facility] 2021-12-02 2021-12-02 Outpatient R KIA [facility] [id number] Univers 10:20:00 10:20:00 [facility] [id number] [facility] 2021-12-02 2021-12-02 [id number] Univers 10:20:00 10:20:00 [facility] 2021-11-25 2021-11-25 [facility] [id number] Univers 10:20:00 10:20:00 [facility] 2021-11-23 2021-11-23 Outpatient R AMITA GOMEZ [facility] [id number] Univers 14:00:00 14:00:00 AMITA GOMEZ [id number] [facility] 2021-10-07 2021-10-07 Outpatient R MEKA [facility] [id number] Univers 10:00:00 10:00:00 KIA [id number] [facility] 2021-10-05 2021-10-05 Outpatient R AMITA GOMEZ [facility] [id number] Univers 10:30:00 11:22:11 AMITA GOMEZ [facility] 2021-10-05 2021-10-05 Outpatient R AMITA GOMEZ [facility] [id number] Univers 10:30:00 10:30:00 AMITA GOMEZ [id number] [facility] 2021-09-21 2021-09-21 [facility] [id number] Univers 00:00:00 00:00:00 [facility] [id number] it y of [place] [id number] Bernabe as ERIKA?BLEA [phone] Mi sherif [address] MEDICAL OFFICE BUILDING 2021-08-16 2021-08-16 Outpatient R BETTYE [facility] [id number] Univers 13:00:00 13:00:00 ALEXEY [facility] 2021-08-01 2021-08-01 [facility] [id number] Univers 13:40:00 14:02:37 Visit Sriram PALOMO [id number] [facility] [id number] [phone] Mi dical NAL 059 [facility] 2021-08-01 2021-08-01 [facility] [id number] Univers 13:40:00 14:02:37 SRIRAM de oliveira o f [facility] 2021-04-22 2021-04-22 Outpatient R ARACELIS GARCIA [facility] [id number] Univers 15:40:00 15:40:00 ARACELIS GARCIA [facility] 2021-03-21 2021-03-21 Outpatient R VJ [facility] [id number] Univers 14:45:00 14:45:00 AFIA [facility] 2021-02-08 2021-02-08 Outpatient R SABINA BRUSH [facility] [id number] Univers 15:30:00 16:44:10 [facility] 2020-05-20 2020-05-20 Telephone YANA Samano [id number] 00:00:00 00:00:00 Teri RENEE [id number] [facility] [id number] Results This patient has no known results.
[2021-11-04] MEDS ORDERED: ACETAMINOPHEN 500 MG TAB ONE (17:35)
[2021-11-04] MEDS ORDERED: NA CHLORIDE 0.9% 500 ML ONE (17:35)
[2021-11-04] MEDS ORDERED: ONDANSETRON 4 MG/2 ML VIAL ONE ×2 (17:35→21:55)
--- NOTE | 2021-11-04 17:53 | RAD REPORT ---
EXAM DESCRIPTION: RAD - Chest Single View - 11/04/2021 5:29 pm CLINICAL HISTORY: CHEST PAIN COMPARISON: Chest Pa And Lat (2 Views) dated 09/29/2021; Chest Single View dated 09/14/2021; Chest Sin gle View dated 06/20/2021; Chest Single View dated 06/18/2021 FINDINGS: Lines: None. Lungs: No evidence of edema or pneumonia. Pulmonary vascular congestion. Pleural: No significant pleural effusions or pneumothorax. Cardiac: Cardiomegaly. Pacemaker/ICD. Mediastinum: Within normal limits. Bones: No acute fractures. Other: None IMPRESSION: Pulmonary vascular congestion but no alveolar edema or consolidation.
[2021-11-04 18:15] LABS: Absolute Lymphocytes (CBC) 1.7 K/uL (0.7-4.9); Hematocrit 32.6 % (36.0-45.0); MCV 92.1 fL (80-100); MPV 11.2 fL (7.6-11.3); RBC Red Blood Cell Count 3.54 M/uL (3.86-4.86)
[2021-11-04 18:18] LABS: Potassium 3.8 mmol/L (3.5-5.1); Troponin High Sensitivity 30.6 pg/mL (<58.9)
--- NOTE | 2021-11-04 20:32 | EDPHYS ---
Physician Documentation [facility] Name: Teena Simpson Age: 76 yrs Sex: Female : 1945 Arrival Date: 11/04/2021 Time: 16:19 Bed 30 Private MD: Santiago Lou ED Physician Luis Alberto Perez HPI: 11/04 18:18 This 76 yrs old Female presents to ER via Wheelchair with complaints of Chest kdr Pain, High Blood Pressure, High Blood Sugar. 18:18 The patient or guardian reports chest pain that is located primarily in the anterior kdr chest wall, right, chest diffusely. Onset: gradually, 2 day(s) ago. The pain radiates to the right arm. Associated signs and symptoms: The patient has no apparent associated signs or symptoms. The chest pain is described as aching, dull, a heaviness, a pressure. Duration: The patient or guardian reports multiple episodes, that are intermittent, that wax and wane, with no pattern. Modifying factors: The symptoms are alleviated by nothing. the symptoms are aggravated by nothing. Severity of pain: At its worst the pain was mild in the emergency department the pain is unchanged. The patient has not experienced similar symptoms in the past. The patient has not recently seen a physician. 18:19 Patient states that her blood pressure has not been as well-controlled as usual since kdr yesterday. Her normal blood pressure is approximately 120 systolic has been 130s and 140s. Blood sugar also has been elevated around 315 and she has been unable to improve on that.. Historical: - Allergies: 16:51 Augmentin; kr3 16:51 Cipro; kr3 - PMHx: 16:51 Anxiety; Atrial Fib; CHF; Diabetes - IDDM; Seizures; neuropathy; Myocardial infarction; kr3 Hypertension; Low HR; High Cholesterol; Kidney failure stage 4; - PSHx: 16:51 Pacemaker-Defib; Appendectomy; kr3 - Immunization history:: Adult Immunizations up to date. - Social history:: Smoking status: Patient denies any tobacco usage or history of. ROS: 18:23 Constitutional: Negative for fever, chills, and weight loss, Eyes: Negative for injury, kdr pain, redness, and discharge, ENT: Negative for injury, pain, and discharge, Neck: Negative for injury, pain, and swelling, Respiratory: Negative for shortness of breath, cough, wheezing, and pleuritic chest pain, Abdomen/GI: Negative for abdominal pain, nausea, vomiting, diarrhea, and constipation, Back: Negative for injury and pain, : Negative for injury, bleeding, discharge, and swelling, MS/Extremity: Negative for injury and deformity, Skin: Negative for injury, rash, and discoloration, Neuro: Negative for headache, weakness, numbness, tingling, and seizure activity. Psych: Negative for depression, anxiety, suicide ideation, homicidal ideation, and hallucinations, Allergy/Immunology: Negative for hives, rash, and allergies, Endocrine: Negative for neck swelling, polydipsia, polyuria, polyphagia, and marked weight changes, Hematologic/Lymphatic: Negative for swollen nodes, abnormal bleeding, and unusual bruising. 18:23 Cardiovascular: Positive for chest pain, Negative for edema, orthopnea, palpitations, paroxysmal nocturnal dyspnea, acute changes. Exam: 18:23 Constitutional: This is a well developed, well nourished patient who is awake, alert, kdr and in no acute distress. Head/Face: Normocephalic, atraumatic. Eyes: Pupils equal round and reactive to light, extra-ocular motions intact. Lids and lashes normal. Conjunctiva and sclera are non-icteric and not injected. Cornea within normal limits. Periorbital areas with no swelling, redness, or edema. Neck: Trachea midline, no thyromegaly or masses palpated, and no cervical lymphadenopathy. Supple, full range of motion without nuchal rigidity, or vertebral point tenderness. No Meningismus. Chest/axilla: Normal chest wall appearance and motion. Nontender with no deformity. No lesions are appreciated. Cardiovascular: Regular rate and rhythm with a normal S1 and S2. No gallops, murmurs, or rubs. Normal PMI, no JVD. No pulse deficits. Respiratory: Lungs have equal breath sounds bilaterally, clear to auscultation and percussion. No rales, rhonchi or wheezes noted. No increased work of breathing, no retractions or nasal flaring. Back: No spinal tenderness. No costovertebral tenderness. Full range of motion. Skin: Warm, dry with normal turgor. Normal color with no rashes, no lesions, and no evidence of cellulitis. MS/ Extremity: Pulses equal, no cyanosis. Neurovascular intact. Full, normal range of motion. Neuro: Awake and alert, GCS 15, oriented to person, place, time, and situation. Cranial nerves II-XII grossly intact. Motor strength 5/5 in all extremities. Sensory grossly intact. Cerebellar exam normal. Normal gait. Psych: Awake, alert, with orientation to person, place and time. Behavior, mood, and affect are within normal limits. 18:23 Cardiovascular: Rate: normal, Rhythm: regular. 18:30 ECG was reviewed by the Attending Physician. kdr Vital Signs: 16:43 BP 133 / 78; Pulse 120; Resp 18; Temp 98.2(O); Pulse Ox 100% on R/A; Weight 90.26 kg; kr3 Height 5 ft. 0 in. (152.40 cm); Pain 2/10; 18:13 BP 140 / 62; Pulse 69; Resp 16; Pulse Ox 98% on R/A; Pain 0/10; hb 19:30 BP 140 / 65; Pulse 75; Resp 17; Pulse Ox 99% on R/A; hb 20:30 BP 99 / 51; Pulse 89; Resp 18; Pulse Ox 99% ; hb 21:49 BP 140 / 93; Pulse 81; Resp 17; Pulse Ox 100% on R/A; Pain 6/10; hb 23:00 BP 142 / 90; Pulse 80; Resp 15; Pulse Ox 98% on R/A; hb 16:43 Body Mass Index 38.86 (90.26 kg, 152.40 cm) kr3 MDM: 19:18 Patient medically screened. jann 20:32 Differential diagnosis: abnormal EKG, acute myocardial infarction, costochondritis, jann pneumonia, stable angina, unstable angina. HEART Score: History: Moderately Suspicious (1), ECG: Non specific repolarization disturbance / LBTB / PM (1), Age: > or = 65 years (2), Risk Factors: > or = 3 Risk factors for atherosclerotic disease (2), [Hypercholesterolemia] [Hypertension] [DM] [+ Family HX] [Obesity] Troponin: < or = 1 x Normal Limit (0), Total Score = 6. The patient was not given aspirin in the Emergency Department. The patient's deep vein thrombosis risk score was calculated as follows: Total Score: 0. This patient was found to be at low risk for a deep vein thrombosis by using the Well's assessment criteria. The patient's pulmonary embolism risk score was calculated as follows: Total Score: 0-2 points. This patient was found to be at low risk for a pulmonary embolism by using the Well's assessment criteria. PHI Risk Score: 1 - patient's age is greater or equal to 65 years, 1 - Three or more CAD risk factors, 1- Known CAD, TOTAL SCORE = 3. Data reviewed: vital signs, nurses notes, lab test result(s), EKG, radiologic studies, plain films. Data interpreted: traffic monitor specialist: rate is 69 beats/min, rhythm is regular, Pulse oximetry: on room air is 98 %. Test interpretation: by ED physician or midlevel provider: ECG, plain radiologic studies. Counseling: I had a detailed discussion with the patient and/or guardian regarding: the historical points, exam findings, and any diagnostic results supporting the discharge/admit diagnosis, lab results, radiology results, the need for further work-up and treatment in the hospital. 11/04 17:06 Order name: Basic Metabolic Panel; Complete Time: 18:20 kdr 11/04 17:06 Order name: CBC with Diff; Complete Time: 18:23 kdr 11/04 17:06 Order name: Troponin HS; Complete Time: 18:20 kdr 11/04 18:23 Order name: Troponin High Sensitivity: Draw 2 hours after initial draw ; Complete Time: kdr 20:20 11/04 20:41 Order name: SARS-COV-2 Antigen Rapid; Complete Time: 21:37 tw5 11/04 20:42 Order name: BNP; Complete Time: 21:37 la1 11/04 17:06 Order name: XRAY Chest (1 view); Complete Time: 18:20 kdr 11/04 17:06 Order name: EKG; Complete Time: 17:07 kdr 11/04 17:06 Order name: Cardiac monitoring; Complete Time: 18:02 kdr 11/04 17:06 Order name: EKG - Nurse/Tech; Complete Time: 18:02 kdr 11/04 17:06 Order name: IV Saline Lock; Complete Time: 18:02 kdr 11/04 17:06 Order name: Labs collected and sent; Complete Time: 18:02 kdr 11/04 17:06 Order name: O2 Per Protocol; Complete Time: 18:02 kdr 11/04 17:06 Order name: O2 Sat Monitoring; Complete Time: 18:02 kdr EC:30 Rate is 88 beats/min. Rhythm is irregular, Paced with Occasional PVCs. QRS [place] is kdr Normal. MA interval is normal. QRS interval is normal. Clinical impression: Paced rhythm. Administered Medications: 18:02 Drug: Zofran (Ondansetron) 4 mg Route: IVP; Site: right forearm; hb 18:55 Follow up: Response: No adverse reaction hb 18:02 Drug: Tylenol 1000 mg Route: PO; hb 18:55 Follow up: Response: No adverse reaction hb 18:02 Drug: NS 0.9% 500 ml Route: IV; Rate: bolus; Site: right forearm; hb 18:35 Follow up: Response: No adverse reaction; IV Status: Infusion continued; IV Intake: hb 500ml 21:12 Drug: Lasix (furosemide) 40 mg Route: IVP; Site: right forearm; hb 21:48 Follow up: Response: No adverse reaction hb 21:48 Drug: traMADol 50 mg Route: PO; hb 21:48 Drug: Zofran (Ondansetron) 4 mg Route: IVP; Site: right forearm; hb Disposition Summary: 11/04/21 20:31 Hospitalization Ordered Hospitalization Status: Observation jann Provider: Damien Yousif cha Location: Telemetry/MedSurg (observation) jann Condition: Fair jann Problem: new jann Symptoms: have improved jann Bed/Room Type: Standard jann Room Assignment: 412(11/04/21 22:56) cg Diagnosis - Chest pain, unspecified jann - Type 1 diabetes mellitus with hyperglycemia jann - Obesity, unspecified jann - Systolic (congestive) heart failure jann - Acute kidney failure, unspecified - on chronic jann Forms: - Medication Reconciliation Form jann - SBAR form jann Signatures: Dispatcher [employer] Luis Alberto Soni MD MD cha Rittger, Kevin, MD MD kdr Attema, Lee, STREET FLUSHER DRIVER-C STREET FLUSHER DRIVER-Mag1 Jeanette Mckeon, WM RN Jennifer Conteh RN RN hb Reid, Kelley, RN RN kr3 Corrections: (The following items were deleted from the chart) 22:56 20:31 jann cg
--- NOTE | 2021-11-04 20:32 | ER ---
Nurse's Notes [facility] Name: Teena Simpson Age: 76 yrs Sex: Female : 1945 Arrival Date: 11/04/2021 Time: 16:19 Bed 30 Private MD: Santiaog Lou Diagnosis: Chest pain, unspecified;Type 1 diabetes mellitus with hyperglycemia;Obesity, unspecified;Systolic (congestive) heart failure;Acute kidney failure, unspecified-on chronic Presentation: 11/04 16:43 Chief complaint: Patient states: uncontrolled BP since yesterday even with medication kr3 and blood sugar will not come down. spoke with PCP and instructed to take more insulin with little decrease in BS after instructed dose. Coronavirus screen: Vaccine status: Patient reports receiving the 2nd dose of the covid vaccine. Client denies travel out of the [place] in the last 14 days. Ebola Screen: Patient denies travel to an Ebola-affected area in the 21 days before illness onset. Initial Sepsis Screen: Does the patient meet any 2 criteria? No. Patient's initial sepsis screen is negative. Does the patient have a suspected source of infection? No. Patient's initial sepsis screen is negative. Risk Assessment: Do you want to hurt yourself or someone else? Patient reports no desire to harm self or others. Onset of symptoms was November 04, 2021. 16:43 Method Of Arrival: Wheelchair kr3 16:43 Acuity: TYS[place] 3 kr3 Triage Assessment: 16:53 General: Appears distressed, uncomfortable, Behavior is calm, cooperative, appropriate kr3 for age. Pain: Complains of pain in headache and chest. Cardiovascular: Reports chest pain. Historical: - Allergies: 16:51 Augmentin; kr3 16:51 Cipro; kr3 - PMHx: 16:51 Anxiety; Atrial Fib; CHF; Diabetes - IDDM; Seizures; neuropathy; Myocardial infarction; kr3 Hypertension; Low HR; High Cholesterol; Kidney failure stage 4; - PSHx: 16:51 Pacemaker-Defib; Appendectomy; kr3 - Immunization history:: Adult Immunizations up to date. - Social history:: Smoking status: Patient denies any tobacco usage or history of. Screenin:13 Abuse screen: Denies threats or abuse. Denies injuries from another. Nutritional hb screening: No deficits noted. Tuberculosis screening: No symptoms or risk factors identified. Fall Risk None identified. Assessment: 18:14 General: Appears in no apparent distress. Behavior is calm, cooperative. Pain: Pain hb currently is 0 out of 10 on a pain scale. at worst was 5 out of 10 on a pain scale. Neuro: Level of Consciousness is awake, alert, obeys commands, Oriented to person, place, time, situation. Cardiovascular: Patient's skin is warm and dry. Respiratory: Respiratory effort is even, unlabored, Respiratory pattern is regular, symmetrical. GI: No signs and/or symptoms were reported involving the gastrointestinal system. : No signs and/or symptoms were reported regarding the genitourinary system. EENT: No signs and/or symptoms were reported regarding the EENT system. Derm: Skin is pink, warm \T\ dry. Musculoskeletal: No signs and/or symptoms reported regarding the musculoskeletal system. 19:00 Reassessment: Patient appears in no apparent distress at this time. Patient and/or hb family updated on plan of care and expected duration. Pain level reassessed. Patient is alert, oriented x 3, equal unlabored respirations, skin warm/dry/pink. 20:00 Reassessment: Patient appears in no apparent distress at this time. Patient and/or hb family updated on plan of care and expected duration. Pain level reassessed. Patient is alert, oriented x 3, equal unlabored respirations, skin warm/dry/pink. 21:00 Reassessment: Patient appears in no apparent distress at this time. Patient and/or hb family updated on plan of care and expected duration. Pain level reassessed. Patient is alert, oriented x 3, equal unlabored respirations, skin warm/dry/pink. 21:49 Reassessment: Patient appears in no apparent distress at this time. Patient and/or hb family updated on plan of care and expected duration. Pain level reassessed. Patient is alert, oriented x 3, equal unlabored respirations, skin warm/dry/pink. 23:00 Reassessment: Patient appears in no apparent distress at this time. Patient and/or hb family updated on plan of care and expected duration. Pain level reassessed. Patient is alert, oriented x 3, equal unlabored respirations, skin warm/dry/pink. Vital Signs: 16:43 BP 133 / 78; Pulse 120; Resp 18; Temp 98.2(O); Pulse Ox 100% on R/A; Weight 90.26 kg; kr3 Height 5 ft. 0 in. (152.40 cm); Pain 2/10; 18:13 BP 140 / 62; Pulse 69; Resp 16; Pulse Ox 98% on R/A; Pain 0/10; hb 19:30 BP 140 / 65; Pulse 75; Resp 17; Pulse Ox 99% on R/A; hb 20:30 BP 99 / 51; Pulse 89; Resp 18; Pulse Ox 99% ; hb 21:49 BP 140 / 93; Pulse 81; Resp 17; Pulse Ox 100% on R/A; Pain 6/10; hb 23:00 BP 142 / 90; Pulse 80; Resp 15; Pulse Ox 98% on R/A; hb 16:43 Body Mass Index 38.86 (90.26 kg, 152.40 cm) kr3 ED Course: 16:19 Patient arrived in ED. mr 16:19 Santiago Lou MD is Private Physician. mr 16:42 Gianfranco Myers MD is Attending Physician. kdr 16:50 Triage completed. kr3 16:53 Arm band placed on right wrist. kr3 16:58 Jennifer Conteh, WM is Primary Nurse. hb 17:30 XRAY Chest (1 view) In Process Unspecified. EDMS 18:00 Inserted saline lock: 22 gauge in right forearm, using aseptic technique. Blood hb collected. Patient maintains SpO2 saturation greater than 95% on room air. 18:13 Patient has correct armband on for positive identification. Client placed on continuous hb cardiac and pulse oximetry monitoring. NIBP monitoring applied. 19:18 Attending Physician role handed off by Gianfranco Myers MD jann 19:18 Luis Alberto Perez MD is Attending Physician. jann 20:29 Damien Yousif MD is Hospitalizing Provider. jann 23:24 No provider procedures requiring assistance completed. Patient admitted, IV remains in hb place. Administered Medications: 18:02 Drug: Zofran (Ondansetron) 4 mg Route: IVP; Site: right forearm; hb 18:55 Follow up: Response: No adverse reaction hb 18:02 Drug: Tylenol 1000 mg Route: PO; hb 18:55 Follow up: Response: No adverse reaction hb 18:02 Drug: NS 0.9% 500 ml Route: IV; Rate: bolus; Site: right forearm; hb 18:35 Follow up: Response: No adverse reaction; IV Status: Infusion continued; IV Intake: hb 500ml 21:12 Drug: Lasix (furosemide) 40 mg Route: IVP; Site: right forearm; hb 21:48 Follow up: Response: No adverse reaction hb 21:48 Drug: traMADol 50 mg Route: PO; hb 21:48 Drug: Zofran (Ondansetron) 4 mg Route: IVP; Site: right forearm; hb Medication: 18:15 VIS not applicable for this client. hb Intake: 18:35 IV: 500ml; Total: 500ml. hb Outcome: 20:31 Decision to Hospitalize by Provider. jann 23:24 Admitted to Tele accompanied by tech, via wheelchair, room 412. hb 23:24 Condition: stable 23:24 Instructed on the need for admit, Demonstrated understanding of instructions. 23:45 Patient left the ED. hb Signatures: Dispatcher [employer] EDLuis Alberto Connor MD MD cha Rittger, Kevin, MD MD kdr Rivera, Mary mr Baxter, Heather, WM RN Karissa Pro RN RN kr3
[2021-11-04] MEDS ORDERED: FUROSEMIDE 40 MG/4 ML VIAL ONE (20:59)
[2021-11-04 21:21] LABS: SARS-CoV-2 Antigen Rapid Res Negative (Negative)
[2021-11-04] MEDS ORDERED: TRAMADOL HCL 50 MG TAB ONE (21:54)
--- NOTE | 2021-11-04 22:50 | P.HP ---
Certification for Inpatient Patient admitted to: Observation With expected LOS: <2 Midnights Patient will require the following post-hospital care: None Practitioner: I am a practitioner with admitting privileges, knowledge of patient current condition, hospital course, and medical plan of care. Services: Services provided to patient in accordance with Admission requirements found in Title 42 Section 412.3 of the Code of Federal Regulations <Tremayne Martínez - Last Filed: 11/04/21 22:46> Patient History Date of Service: 11/04/21 History of Present Illness: 76-year-old female with history of chronic systolic congestive heart failure, atrial fibrillation on chronic anticoagulation therapy, diabetes mellitus type 2insulin-dependent, CKD 4, hypertension presents the emergency department for chest pain. She reports that she is having difficulty controlling both her blood sugar and blood pressure over the course last few days and she began to experience pressure-like chest pain radiating to her neck while on her way to the emergency department to be evaluated for her hyperglycemia and hypertension. She was evaluated in the emergency department her initial high-sensitivity troponin was 30.6 her chest x-ray showed pulmonary vascular congestion but no alveolar edema or consolidation EKG showed paced rhythm. Patient with severe systolic congestive heart failure with AICD in place. She had a heart cath in 2019 that did not require any stent placements, last echocardiogram was performed on 07/16/2019 with ejection fraction of 30 to 35%. ED provider wishes to admit under observation for ACS rule out. - Past Medical/Surgical History Diabetic: Yes -: seizures -: Atrial fibrillation on chronic anticoagulation -: Diabetes mellitus type 2insulin-dependent -: hypertension -: hyperlipidemia -: Chronic systolic congestive heart failure -: CAD -: CKD 4 -: defib/pacemaker placement x2 -: exploratory lap -: appendectomy Psychosocial/ Personal History: Patient lives patient lives at home with family - Family History Father -: Lung disease Mother -: Heart disease, Hypertension, Diabetes Sister -: Diabetes Brother -: Diabetes, Kidney disease - Social History Smoking Status: Never smoker Alcohol use: No CD- Drugs: No Caffeine use: Yes Place of Residence: Home <Tremayne Martínez - Last Filed: 11/04/21 22:46> Date of Service: 11/05/21 <Damien Yousif - Last Filed: 11/05/21 12:25> Allergies amoxicillin [From Augmentin] Adverse Reaction (Verified 04/07/21 23:03) Nausea/Vomiting ciprofloxacin Adverse Reaction (Verified 04/07/21 23:04) Nausea/Vomiting clavulanic acid [From Augmentin] Adverse Reaction (Verified 04/07/21 23:03) Nausea/Vomiting Home Medications: RX: Amlodipine [Norvasc*] 10 mg PO DAILY 08/07/21 RX: Apixaban [Eliquis] 5 mg PO BID 08/07/21 RX: Atorvastatin Calcium [Lipitor] 40 mg PO BEDTIME 08/07/21 RX: Furosemide [Lasix*] 40 mg PO DAILY 08/07/21 RX: Insulin NPH Human Isophane [Novolin N] 30 unit SQ 0800,199908/07/21 RX: Metoprolol Succinate [Toprol Xl] 50 mg PO BID 08/07/21 RX: PHENYTOIN ER Cap [Dilantin ER Cap*] 100 mg PO BID 08/07/21 RX: Sennosides/Docusate Sodium [Senna-Docusate Sodium Tablet] 1 each PO DAILY #30 tablet 08/10/21 RX: Digoxin [Lanoxin*] 0.125 mg PO Q48H 11/04/21 RX: Hydralazine [Apresoline*] 25 mg PO TID 11/04/21 RX: Insulin Lispro [Humalog*] 25 unit SQ BID 11/04/21 Ondansetron [Zofran] 4 mg PO Q8H PRN #20 tab 11/05/21 Review of Systems 10-point ROS is otherwise unremarkable Cardiovascular: Chest Pain <Attema,Tremayne Combs Scott - Last Filed: 11/04/21 22:46> Physical Examination - Physical Exam General: Alert, In no apparent distress, Oriented x3 HEENT: Atraumatic, PERRLA, Mucous membr. moist/pink, EOMI, Sclerae nonicteric Neck: Supple, 2+ carotid pulse no bruit, No LAD, Without JVD or thyroid abnormality Respiratory: Clear to auscultation bilaterally, Normal air movement Cardiovascular: Regular rate/rhythm, Normal S1 S2 Gastrointestinal: Normal bowel sounds, No tenderness Musculoskeletal: No tenderness Integumentary: No rashes Neurological: Normal speech, Normal strength at 5/5 x4 extr, Normal tone, Normal affect - Studies Laboratory Data (last 24 hrs) 11/04/21 17:48: WBC 7.90, Hgb 11.1 L, Hct 32.6 L, Plt Count 174 11/04/21 17:48: Sodium 132 L, Potassium 3.8, BUN 61 H, Creatinine 2.25 H, Glucose 217 H <Tremayne Martínez - Last Filed: 11/04/21 22:46> - Studies Laboratory Data (last 24 hrs) 11/04/21 17:48: WBC 7.90, Hgb 11.1 L, Hct 32.6 L, Plt Count 174 11/04/21 17:48: Sodium 132 L, Potassium 3.8, BUN 61 H, Creatinine 2.25 H, Glucose 217 H <Damien Yousif - Last Filed: 11/05/21 12:25> Assessment and Plan - Plan Assessment: Chest pain rule out ACShistory CAD Diabetes mellitus type 2insulin-dependent with hyperglycemia Atrial fibrillation on chronic anticoagulation therapy Chronic systolic/diastolic congestive heart failure Hypertension CKD 4 Plan: Chest pain rule out ACShistory CAD: Trend troponins, monitor on telemetry, continue Eliquis, other medications. Cardiology consult in place. Last heart catheterization 2019 without need for stent placement at that time. Last echocardiogram also performed in 2020 with ejection fraction between 30 and 35%. Appreciate further input from cardiology. Diabetes mellitus type 2insulin-dependent with hyperglycemia: Blood sugars been running high today at home reportedly around 4-500, blood glucose in the ER is 217, will continue with sliding scale insulin and obtain A1c in the morning. Further adjustment with her long-acting insulin by PCP. Atrial fibrillation on chronic anticoagulation therapy: Patient takes metoprolol, Eliquis at home these medications have been continued. Monitor on telemetry. Patient does have a pacemaker/defibrillator in place. Chronic systolic/diastolic congestive heart failure: No signs of overt overload at this time, continue patient's home dose of Lasix 40 mg daily. Monitor chemistry daily. Hypertension: Continue home medications. CKD 4: Continue home medications, avoid NSAIDs, IV contrast. Counseled nephrology if there is worsening renal function. DVT PPX: Continue Eliquis Code status: Full Discharge Plan: Home Plan to discharge in: 24 Hours - Advance Directives Does patient have a Living Will: No Does patient have a Durable POA for Healthcare: No - Code Status/Comfort Care Code Status Assessed: Yes (Full code) Critical Care: No Time Spent Managing Pts Care (In Minutes): 70 <Tremayne Martínez - Last Filed: 11/04/21 22:46> Physician Review: Patient Assessed, Agree with Above Assessment and Plan <Damien Yousif - Last Filed: 11/05/21 12:25>
[2021-11-04] MEDS ORDERED: ACETAMINOPHEN 500 MG TAB PO PRN (23:28)
[2021-11-05 00:30] VITALS: BMI 37.8
[2021-11-05] MEDS ORDERED: DIGOXIN 0.125 MG TABLET PO SCH ×2 (01:00→09:00)
[2021-11-05] MEDS ORDERED: METOPROLOL XL 100 MG TAB PO SCH (06:00)
[2021-11-05 06:24] LABS: Absolute Lymphocytes (CBC) 2.2 K/uL (0.7-4.9); Hematocrit 30.4 % (36.0-45.0); Lymphocytes % 30.4 % (15.3-44.8); MCV 91.3 fL (80-100); MPV 11.3 fL (7.6-11.3); RBC Red Blood Cell Count 3.33 M/uL (3.86-4.86)
[2021-11-05 06:54] LABS: Albumin 2.7 g/dL (3.4-5.0); Bilirubin Total 0.1 mg/dL (0.2-1.0); Potassium 3.5 mmol/L (3.5-5.1); Protein, Total 6.2 g/dL (6.4-8.2); Troponin High Sensitivity 32.8 pg/mL (<58.9)
[2021-11-05] MEDS ORDERED: INSULIN -REGULAR HUMAN 50 UNIT/0.5 ML ML SQ SCH (07:30)
[2021-11-05 08:29] VITALS: TEMP 97.2
[2021-11-05] MEDS ORDERED: PHENYTOIN ER 100 MG CAP PO SCH (09:00)
[2021-11-05] MEDS ORDERED: HYDRALAZINE HCL 25 MG TABLET PO SCH (09:00)
[2021-11-05] MEDS ORDERED: APIXABAN 5 MG TABLET PO SCH (09:00)
[2021-11-05] MEDS: AMLODIPINE 10 MG TAB PO SCH ×2 (09:00→09:03)
[2021-11-05] MEDS ORDERED: METOPROLOL XL 50 MG TAB PO SCH (09:00)
[2021-11-05] MEDS ORDERED: FUROSEMIDE 40 MG TABLET PO SCH (09:00)
--- NOTE | 2021-11-05 09:01 | P.DS ---
Admission Date: 11/04/21 Discharge Date: 11/05/21 Primary Care Provider: Dr. Lou Disposition: ROUTINE DISCHARGE Discharge Condition: GOOD Reason for Admission: Chest Pain Consultations: 1. Cardiology 2. 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 Teena Simpson is a pleasant 76 year old female with a past medical history significant for type II diabetes mellitus, chronic kidney disease stage IV, chronic combined systolic/diastolic congestive heart failure, atrial fibrillation s/p PPM/AICD, and hypertension who was admitted to the [facility] on 11/04/2021 for chest pain. She was admitted to the Medicine service. Her EKG revealed a paced-rhythm without STEMI criteria. Her troponin trend was 30.6 -> 30.2 -> 31.8 -> 32.8. Chest x-ray revealed, "pulmonary vascular congestion but no alveolar edema or consolidation." I reviewed her case with Dr. Moore (her document reviewer) and Dr. Graf (on-call document reviewer). They state that they have seen her in clinic before, and since her troponin trend is flat, they will schedule her for an outpatient transthoracic echocardiogram +/- stress test this week. She is clear to go from a cardiac standpoint. In regards to her renal function, her creatinine was 2.28 and her baseline appears to be around 1.7-1.8. Nephrology was consulted and she was evaluated by Dr. Colvin, who has cleared her for discharge with repeat lab tests this week. He recommended continuing her home dose of furosemide 40 mg daily. On 11/04/2021, she was seen on morning rounds and deemed medically stable for discharge. She was discharged with instructions to schedule follow-up appointments with her PCP (Dr. Lou) in 3-5 days, her document reviewer (Dr. Moore) in 3-5 days, and with her substation operator automatic (Dr. Ulloa) in 3-5 days. She was given the opportunity to ask questions and reported no further questions. Furthermore, all questions were answered to the best of my ability. Today, I personally spent 20 minutes on her case, of which greater than 50% of the time was spent in patient education, counseling, and coordination of care as described above. Vital Signs/Physical Exam: Temp Pulse Resp BP Pulse Ox 97.2 F 71 16 117/56 L 97 11/05/21 08:00 11/05/21 08:00 11/05/21 08:00 11/05/21 08:00 11/05/21 08:00 General: Alert, In no apparent distress, Oriented x3 HEENT: Atraumatic, PERRLA, Mucous membr. moist/pink, EOMI, Sclerae nonicteric Neck: Supple, JVD not distended Respiratory: Clear to auscultation bilaterally, Normal air movement Cardiovascular: Regular rate/rhythm, Normal S1 S2, No gallops, No rubs, No murmurs, Edema (trace-1+) Gastrointestinal: Normal bowel sounds, Soft and benign, Non-distended, No tenderness, No rebound, No guarding Musculoskeletal: No clubbing Integumentary: No rashes Neurological: Normal speech, Cranial nerves 3-12 intact, Normal affect Laboratory Data at Discharge: WBC 7.10 K/uL (4.3-10.9) 11/05/21 05:23 Hgb 10.7 g/dL (12.0-15.0) L 11/05/21 05:23 Hct 30.4 % (36.0-45.0) L 11/05/21 05:23 Plt Count 163 K/uL (152-406) 11/05/21 05:23 Sodium 139 mmol/L (136-145) D 11/05/21 05:23 Potassium 3.5 mmol/L (3.5-5.1) 11/05/21 05:23 BUN 59 mg/dL (7-18) H 11/05/21 05:23 Creatinine 2.28 mg/dL (0.55-1.3) H 11/05/21 05:23 Glucose 278 mg/dL (74-106) H 11/05/21 05:23 Total Bilirubin 0.1 mg/dL (0.2-1.0) L 11/05/21 05:23 AST 21 U/L (15-37) 11/05/21 05:23 ALT 25 U/L (12-78) 11/05/21 05:23 Alkaline Phosphatase 102 U/L (45-117) 11/05/21 05:23 Home Medications: RX: Amlodipine [Norvasc*] 10 mg PO DAILY 08/07/21 RX: Apixaban [Eliquis] 5 mg PO BID 08/07/21 RX: Atorvastatin Calcium [Lipitor] 40 mg PO BEDTIME 08/07/21 RX: Furosemide [Lasix*] 40 mg PO DAILY 08/07/21 RX: Insulin NPH Human Isophane [Novolin N] 30 unit SQ 08,199908/07/21 RX: Metoprolol Succinate [Toprol Xl] 50 mg PO BID 08/07/21 RX: PHENYTOIN ER Cap [Dilantin ER Cap*] 100 mg PO BID 08/07/21 RX: Sennosides/Docusate Sodium [Senna-Docusate Sodium Tablet] 1 each PO DAILY #30 tablet 08/10/21 RX: Digoxin [Lanoxin*] 0.125 mg PO Q48H 11/04/21 RX: Hydralazine [Apresoline*] 25 mg PO TID 11/04/21 RX: Insulin Lispro [Humalog*] 25 unit SQ BID 11/04/21 Ondansetron [Zofran] 4 mg PO Q8H PRN #20 tab 11/05/21 New Medications: Ondansetron [Zofran] 4 mg PO Q8H PRN #20 tab PRN Reason: Nausea / Vomiting Physician Discharge Instructions: 1. Please follow-up with your PCP (Dr. Lou) in 3-5 days 2. Please follow-up with Cardiology (Dr. Moore) in 3-5 days - You will have a heart ultrasound scheduled at this appointment 3. Please follow-up with your Recreation Programmer (Dr. Ulloa) in 3-5 days - Please schedule repeat blood work to check your kidneys at this appointment Diet: AHA Activity: Ad royal Followup: Catia Jimenez MD [COURTESY - CAN ADMIT] - (Call to schedule appointment.) Santiago Lou MD [Primary Care Provider] - (Call to schedule appointment.) Armond Moore MD [ACTIVE - CAN ADMIT] - Time spent managing pt's care (in minutes): 20
--- NOTE | 2021-11-05 13:13 | CON ---
Date of Consultation: 11/05/2021 Reason For Consultation: Elevated BUN and creatinine, fluid management. History Of Present Illness: This is a pleasant 76-year-old female, well known to me from the office, follows up with Dr. Fenton with significant past medical history of CAD complicated with advanced con gestive heart failure, ejection fraction of 20%, status post ICD and ablation, hypertension, AFib, se izure, diabetes complicated with neuropathy, nephropathy, chronic kidney disease stage 4, baseline cr eatinine around 2 with GFR of mid 20, the patient came to the hospital complaining from uncontrolled blood pressure and blood sugar with shortness of breath and chest tightness. For that reason, admitt ed to the hospital. The patient denied any nausea, any vomiting. No palpitation. During the hospit alization, the patient found to have elevation in BUN and creatinine, creatinine 2.2 with GFR of 22. For that reason, we have been consulted. No hyperkalemia. The patient was initiated on blood press ure medication. Her blood pressure started being controlled. Kidney function stayed stable and shor tness of breath has been subsided. Past Medical History: Includes; 1.CAD complicated with congestive heart failure, ejection fraction of 30% to 35% as of June 2019. 2.Atrial fibrillation, status post ablation, status post ICD. 3.Diabetes complicated with neuropathy, nephropathy. 4.Hypertension. 5.Hyperlipidemia. Past Surgical History: Includes lap exploratory, appendectomy, ICD placement and ablation. Social History: Denied smoking. Denied drinking. Denied drug abuse. Family History: Positive for interstitial lung disease, hypertension, diabetes, and CAD. Allergies: AMOXICILLIN, CIPRO, AND AUGMENTIN. Home Medications: Include amlodipine 10 mg, atorvastatin, Lasix 20 daily, insulin, metoprolol, Eriberto tin, ferrous sulfate, and nasal spray. Review of Systems: Head and Neck: No red eye. No ear pain. GI: Nausea without any vomiting. : No polyuria. No dysuria. No hematuria. Shotblast Equipment Operator: No vaginal discharge. Respiratory: Has shortness of breath. Cardiovascular: Has chest pain. Endocrine: No polydipsia. Skin: No rash. Neuro: Has neuropathy. Musculoskeletal: No joint pain. Physical Examination: General: When I saw the patient; the patient lying in bed. Vital Signs: Blood pressure 117/56, pulse of 71, afebrile. Chest: Crackles both bases. Heart: S1, S2. Systolic murmur. Abdomen: Soft, nontender. Extremities: Plus edema. Neuro: Alert and oriented x3. No focality. Laboratory Data: WBC 7.1, H and H 10.7/30.4. Sodium 139, potassium 3.5, bicarb 26, BUN 59, creatini ne 2.2, GFR 22, calcium 8.1, albumin 2.7. Current Medications: The patient on include; 1.Eliquis. 2.Amlodipine 10 mg. 3.Atorvastatin. 4.Digoxin. 5.Metoprolol 50. 6.Lasix 40 daily. Assessment And Plan: 1.Chronic kidney disease, stage 4 secondary to diabetes nephropathy with acute kidney injury seconda ry to cardiorenal syndrome. I am going to increase the Lasix to 40 mg and we will monitor the patien t. We will send for TSH and cortisol. The patient will be cleared from the Renal standpoint on curr ent dosage to be discharged. 2.Hypertension with hypertension urgency and over volume. Increase Lasix and start the patient on h ydralazine 25 t.i.d. and add nitroglycerin patch and we will follow up. 3.Coronary artery disease with congestive heart failure. Add nitroglycerin and increase Lasix. 4.Chronic kidney disease, stage 4 with acute kidney injury secondary to cardiorenal as above. 5.Hypokalemia. We will supplement. 6.Diabetes as by primary. Thank you, Dr. Yousif for allowing us to participate in the care of your patient. Time spent examining the patient, [id number], placing order, reviewing the data, discussing with e patient and placing order, discussing with the staff including the hospitalist and nursing staff mo re than 65 minutes. MARCELLA/CAMERON Voice ID: [id number] Report ID: [id number]
[2021-11-05] MEDS ORDERED: ATORVASTATIN 40 MG TAB PO SCH (21:00)
[2021-11-06 11:14] VITALS: BP 99/51; O2SAT 99
--- NOTE | 2021-11-06 15:58 | EKG ---
Test Date: 2021-11-04 Test Time: 17:52:30 Vertical Punch Operator: HB MEASUREMENT RESULTS: Intervals: Rate: 68 AR: 174 QRSD: 136 QT: 478 QTc: 508 [place]: P: -3 AR: 174 QRS: -46 T: 129 INTERPRETIVE STATEMENTS: paced rhythm Left axis deviation Left ventricular hypertrophy with QRS widening and repolarization abnormality Cannot rule out Septal infarct, age undetermined Possible Lateral infarct, age undetermined Abnormal ECG Electronically Signed On 11-06-21 15:55:35 CDT by Ross Graf
--- NOTE | 2021-11-07 10:25 | CON ---
Date of Consultation: 11/05/2021 Ms. Simpson was admitted to Dr. Yousif on 11/04/2021. Reason For Consultation: Hyperglycemia, hypertension, and atypical chest pain. History Of Present Illness: Ms. Simpson is 76[address] Moore in the office. She has a very com plicated past medical history. She has a history of chronic systolic congestive heart failure with a n ejection fraction of 35%, status post defibrillator and pacemaker. She had a history of paroxysmal atrial fibrillation, anxiety, diabetes, seizure disorder, coronary artery disease, hypertension, chr onic renal disease, dyslipidemia, bradycardia, neuropathy, and history of ablation for atrial fibrill ation. She comes in mostly with hypertension, elevated blood glucose, very nonspecific atypical ches t pain. Her BNP was 3100. Troponin was negative. Glucose was 231 and creatinine 2.38. Denied PND, orthopnea, pedal edema, palpitations, or syncope. Denied fever or chills. Past Medical History: As stated above. Allergies: SHE IS ALLERGIC TO PENICILLIN, CIPRO, AND AUGMENTIN. Medications: At home include Eliquis, Dilantin, Norvasc, Lipitor, digoxin, Lasix insulin, hydralazin e, and metoprolol. Physical Examination: Vital Signs: By the time I saw her, her blood pressure is 150/84, sinus rhythm, afebrile. HEENT: Negative. Neck: Supple with no bruit. Chest: Clear. Cardiac: Regular rhythm and rate with an S4 gallop. Abdomen: Benign. Extremities: No clubbing or cyanosis. She had trace edema. Neurologic: She was nonfocal. Skin: Dry and intact. Pulses were present distally bilaterally. Diagnostic Data: Creatinine is 2.28, glucose 231. BNP 3100. Chest x-ray is negative. EKG showed L VH. Troponin is negative. Impression And Plan: 1.Hypertension, poorly controlled, probably because of the chest pain. 2.Diabetes, poorly controlled. 3.Renal insufficiency stage 4, stable. 4.Elevated BNP secondary to congestive heart failure and renal failure. 5.Coronary artery disease, stable. 6.Anxiety. 7.Atrial fibrillation. She is in sinus rhythm. She is on Eliquis. 8.Dyslipidemia. 9.Seizure disorder. 10.Chronic systolic congestive heart failure with ejection fraction 35% with history of bradycardia, ablation, pacemaker, and defibrillator. These are all stable. We will continue present regimen and send her home. We will see her in the office very soon with Dr. Moore. Consider increasing hydralazine dose and/or metoprolol dose. The patient is not a candidat e for MARÍA inhibitors for her CHF because of her renal failure. Case was discussed with Dr. Yousif. PRAVEEN/CAMERON Voice ID: [id number] Report ID: [id number]
== END 2021-11-05 10:58 | disposition home or self-care (01) ==
LOC: ER 16:16 → ERHOLD 21:40 → 4TH 23:16
PROVIDERS: ADMIT Internal Medicine; ATTEND Internal Medicine
DX: R07.89 Other chest pain (principal); I13.0 Hypertensive heart and chronic kidney disease with heart failure and stage 1 through stage 4 chronic kidney disease, or unspecified chronic kidney disease; I50.42 Chronic combined systolic (congestive) and diastolic (congestive) heart failure; N18.4 Chronic kidney disease, stage 4 (severe); E11.22 Type 2 diabetes mellitus with diabetic chronic kidney disease; E11.65 Type 2 diabetes mellitus with hyperglycemia; I25.10 Atherosclerotic heart disease of native coronary artery without angina pectoris; I48.91 Unspecified atrial fibrillation; R00.1 Bradycardia, unspecified; E78.5 Hyperlipidemia, unspecified; E11.40 Type 2 diabetes mellitus with diabetic neuropathy, unspecified; G40.909 Epilepsy, unspecified, not intractable, without status epilepticus; F41.9 Anxiety disorder, unspecified; Z95.810 Presence of automatic (implantable) cardiac defibrillator; Z79.01 Long term (current) use of anticoagulants; Z79.899 Other long term (current) drug therapy; Z88.0 Allergy status to penicillin; Z88.3 Allergy status to other anti-infective agents; Z20.822 Contact with and (suspected) exposure to COVID-19; Z82.49 Family history of ischemic heart disease and other diseases of the circulatory system; Z83.3 Family history of diabetes mellitus; Z84.1 Family history of disorders of kidney and ureter
CPT/HCPCS: 96361; 93005; 85025 ×2; 80048; 36415; 82947 ×3; 83036; 84484 ×4; 80053; 83880; 71045; 96375; 96374; 99285; 87811; J1815; J1940; J7040; J2405 ×2; G0378 ×2

== ENCOUNTER 2022-05-02 15:44 | Emergency (ER) | payer OTHER ==
--- OUTSIDE RECORDS SUMMARY | 2022-05-02 15:55 | XMS REPORT | Continuity of Care Document ---
:1945 Author Organization [facility] t Address [address] [place] [address] [place] [id number] Care Team Providers Name Role Phone CAMRON ARIAS Primary Care Physician Unavailable FAM CRAIG Attending Clinician Unavailable SILVERIO ADAM Attending Clinician Unavailable SRIRAM HEATH Attending Clinician Unavailable Kumar SQUIRES, Sriram Attending Clinician 2, [facility] Attending Clinician Unavailable Silverio Adam MD Attending Clinician Nara Galvan RN Attending Clinician Unavailable BRII SAMSON Attending Clinician Unavailable Marina Pang DO Attending Clinician Brii Samson MD Attending Clinician Fang Perez MD Attending Clinician Unknown, Attending Attending Clinician Unavailable FANG PEREZ Attending Clinician Unavailable AMITA GOMEZ Attending Clinician Unavailable AMITA GOMEZ Attending Clinician Unavailable Tin SQUIRES, Alexey Attending Clinician ALEXEY WEN Attending Clinician Unavailable DIANN GUY Attending Clinician Unavailable Diann Guy MD Attending Clinician MITCHELL GARCIA Attending Clinician Unavailable MITCHELL GARCIA Attending Clinician Unavailable IBIKUNLE, FOLUSHO F Attending Clinician Unavailable Ibikunle FOOD SERVICE AGENT, Folusho F Attending Clinician Doctor Unassigned, [place] Attending Clinician Unavailable Clare Gonsalves MD Attending Clinician CLARE GONSALVES Attending Clinician Unavailable Tommy BURK, Luis Alberto Attending Clinician Unavailable Mitchell Garcia MD Attending Clinician Pob, [facility] Main Attending Clinician Unavailable Willian SQUIRES, Ortega Lester Attending Clinician [phone] ORTEGA DORSEY Attending Clinician Unavailable Lily BURK, Cielo Attending Clinician Unavailable Ananya Gomez DO Attending Clinician ANANYA GOMEZ Attending Clinician Unavailable JENNIE BACA Attending Clinician Unavailable Epi FOOD SERVICE AGENT, Jennie Attending Clinician ARGENIS BARNETT Attending Clinician Unavailable Damien Hugo MD Attending Clinician Soni Hunter MD Attending Clinician Argenis Barnett MD Attending Clinician Esperanza Cronin RN Attending Clinician Unavailable ANUJ GONZALES Attending Clinician Unavailable Hudson Wolfe MD Attending Clinician Anuj Gonzales MD Attending Clinician Misael Castro MD Attending Clinician GRAMM, SHANTEL A Attending Clinician Unavailable Gramm FOOD SERVICE AGENT, Shantel A Attending Clinician Sabina Barba MD Attending Clinician SABINA BARBA Attending Clinician Unavailable Ericka Chen Attending Clinician ERICKA ACKERMAN Attending Clinician Unavailable Lab, Ang - Db Attending Clinician Unavailable VIRI PRICE Attending Clinician Unavailable Lab, [facility] Fam Pob I Attending Clinician Unavailable Jose FOOD SERVICE AGENTKarla Attending Clinician Dee FOOD SERVICE AGENT, Viri Martinez Attending Clinician Teri Samano RN Attending Clinician Unavailable ERICH PANTOJA Attending Clinician Unavailable Pacemaker/Icd, [facility] Attending Clinician Unavailable Omole FOOD SERVICE AGENT, Min Godinez Attending Clinician [phone] OMOLE, MIN TEEMNAH Attending Clinician Unavailable Nita Degroot DO Attending Clinician NITA DEGROOT Attending Clinician Unavailable NITA DEGROOT Attending Clinician Unavailable Provider, [facility] Attending Clinician Unavailable Anedevante FOOD SERVICE AGENT, Monica Attending Clinician MONICA MCCORMICK Attending Clinician Unavailable Calli BURK, Jo More Attending Clinician Unavailable Kirt Thomason DO Attending Clinician Gab Servin MD Attending Clinician GAB SERVIN Attending Clinician Unavailable Cielo Henry RN Attending Clinician Fam Craig MD Attending Clinician [phone] Edgar Cortés MD Attending Clinician [phone] EDGAR CORTÉS Attending Clinician Unavailable Lubna Lal MD Attending Clinician LUBNA LAL Attending Clinician Unavailable , [facility] Echo Room 1 - Attending Clinician Unavailable Visit, [facility] Nurse Attending Clinician Unavailable Dago Gross MD K.H. Attending Clinician , [facility] Vascular Room 1 - Attending Clinician Unavailable ALEXUS RAMOS Attending Clinician Unavailable ALEXUS RAMOS Attending Clinician Unavailable DAGO GROSS [facility] Attending Clinician Unavailable EVAN MARTIN Attending Clinician Unavailable EKATERINA BOUDREAUX Attending Clinician Unavailable Nate GALAVIZP, Madeleine Strauss Attending Clinician Emily Sanon Attending Clinician [facility], Adc Heart Failure Cardio Attending Clinician Unavailjeremy e 1, [facility] Attending Clinician Unavailable FAM CRAIG Admitting Clinician Unavailable SILVERIO ADAM Admitting Clinician Unavailable BRII SAMSON Admitting Clinician Unavailable Brii Samson MD Admitting Clinician SRIRAM HEATH Admitting Clinician Unavailable CELIA HERNANDEZ Admitting Clinician Unavailable ARGENIS BARNETT Admitting Clinician Unavailable Argenis Barnett MD Admitting Clinician ANUJ GONZALES Admitting Clinician Unavailable Anuj Gonzales MD Admitting Clinician CLARE GONSALVES Admitting Clinician Unavailable Gab Servin MD Admitting Clinician GAB SERVIN Admitting Clinician Unavailable LUBNA LAL Admitting Clinician Unavailable EVAN MARTIN Admitting Clinician Unavailable Payers Payer Name Policy Type Policy Number Effective Date Expiration Date S catarino BLAKE/SANDRA [id number] 2019 MEDICARE ADVANTAGE 00:00:00 HUMANA CHOICE [id number] 2022 00:00:00 Problems Condition Condition Condition Status Onset Resolution Last Treating Co mments Source Name Details Category Date Date Treatment Clinician Date Pulmonary Pulmonary Disease Active 2021-02 Uni vers hypertensi hypertensi 2-31 it y of on on 00:00: [address] Branch Presence Presence Disease Active 2021-02 Unive rs of cardiac of cardiac 2-30 [place] of resynchron [place] 00 Medical therapy therapy Branch defibrilla defibrilla tor tor (SHELTER MONITOR-D) (SHELTER MONITOR-D) SOB SOB Disease Active 2021-02 Univers (shortness (shortness 2-29 it y of of breath) of breath) 00:[place]: [place] [facility] Atrial Atrial Disease Active Univers tachycardi tachycardi 2-25 it y of a a 00:00: [address] Branch Dizziness Dizziness Disease Active Uni vers and and 2-25 ity of giddiness giddiness 00:[place] [facility] [place] V-tach V-tach Disease Active Univers 1-22 ity of 00:00: [place] [facility] GI bleed GI bleed Disease Active Unive rs 1-17 ity of 00:00: [place] [facility] Rectal Rectal Disease Active Overview: Univer s bleeding bleeding 1-17 Formattin ity of 00:00: g of this note Medical might be Branch different from the original. Added automatic ally from request for surgery [id number] Refusal of Refusal of Disease Active 2020-02 U nivers blood blood 2-13 ity of transfusio transfusio 00:[place] ns as 00 Medical patient is patient is Br anch [employer] Osteopenia Osteopenia Disease Active 2020-02 U [...] f nodules nodules 00:00: g of this [place] note Medical might be Branch different from [...] Branch Acute on Acute on Disease Active 2019 Unive rs chronic chronic 9-11 ity of anemia anemia 00:00: [place] 00 Medical Branch Atypical Atypical Disease Active 2018- Unive rs chest pain chest pain 5-09 it y of 00:00: [place] 00 Medical Branch Left arm Left arm Disease Active 2018- Unive rs pain pain 5-08 ity of 00:00: [place] 00 Medical Branch Arthritis Arthritis Disease Active 2019- Uni vers of lumbar of lumbar 1-07 ity of spine spine 00:00: [place] 00 Medical Branch Degenerati Degenerati Disease Active 2019- U nivers ve ve 1-07 ity of arthritis arthritis [...] Active Univers liver liver 5-21 ity of 00:: Medical Branch Abnormal Abnormal Disease Active Unive rs LFTs LFTs 5-11 ity of 00:00: [place] [address] Medical Branch Multiple Multiple Disease Active Overview: Un araseli renal renal 5-11 Formattin ity of cysts cysts 00:00: g of this note Medical might be Branch different from the original. Bosniak Type [address] Hyperkalem Hyperkalem Disease Active U nivers ia ia 5- ity of 00:00: [place] [facility] History of History of Disease Active U nivers colon colon 5-03 ity of polyps polyps 00:00: [place] [facility] History of History of Disease Active U nivers pulmonary pulmonary 2-17 ity of embolism embolism 00:00: [place] [facility] ICD ICD Disease Active Univers (implantab (implantab 2-17 it y of le le 00:00: [place] cardiovert cardiovert 00 Me dical er-defibri er-defibri Br anch llator) in llator) in place place Atrial Atrial Disease Active Univers fibrillati fibrillati 1-16 it y of on on 00:00: [place] [address] Medical Branch Syncope Syncope Disease Active Univers 1-15 ity of 00:00: [address] Branch DM DM Disease Active Univers (diabetes (diabetes 8-31 ity of mellitus), mellitus), 00:[place] type 2 type 2 00 Medical with renal with renal Br anch complicati complicati ons ons Anxiety Anxiety Disease Active Univers ity of [facility] CKD CKD Disease Active Univers (chronic (chronic ity of kidney kidney [place] disease) disease) Medica l stage 4, stage 4, Branch GFR 15-29 GFR 15-29 ml/min ml/min Epilepsy Epilepsy Disease Active Unive rs ity of [facility] Esophageal Esophageal Disease Active U nivers reflux reflux ity of [facility] HLD HLD Disease Active Univers (hyperlipi (hyperlipi it y of demia) demia) [facility] HTN HTN Disease Active Univers (hypertens (hypertens it y of ion) ion) [place] [facility] 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 [place] Medical [place] ASHLYN ASHLYN Disease Active Univers (obstructi (obstructi [...] 2-13 ity of 00:00: [place] 00 Medical Branch Social History Social Habit Start Date Stop Date Quantity Comments Source History of tobacco Passive smoker Un iversity of use [place] [facility] History SDOH University o f Alcohol Std Drinks [place] [facility] History SDOH University o f Alcohol Binge [place] [facility] al Branch History SDOH Social Unive rsity of Connections [facility] Med ical Together Branch History SDOH Social Unive rsity of Connections [facility] Medical Branch History SDOH Social Unive rsity of Connections [place] Medical Membership Branch History SDOH Social Unive rsity of [facility] Medical Meetings Branch Exposure to 2022-03-12 2022-03-22 Not sure University of SARS-CoV-2 (event) 00:00:00 07:50:00 [place] [facility] Alcohol intake 2022-03-14 2022-03-14 Current University of 00:00:00 00:00:00 non-drinker of [facility] alcohol Branch (finding) History SDOH 2022-02-17 2022-02-17 1 University o f Alcohol Frequency 00:00:00 00:00:00 [facility] edical Branch History SDOH Social 2022-02-17 2022-02-17 5 Unive rsity of Connections Phone 00:00:00 00:00:00 [facility] edical Branch History SDME Social 2022-02-17 2022-02-17 98 Unive rsity of Connections Living 00:00:00 00:00:00 [place] [facility] History SDME 2022-02-17 2022-02-17 7 University o f Physical Activity 00:00:00 00:00:00 [facility] edical DPW Branch History [facility] 2022-02-17 2022-02-17 1 University o f Physical Activity 00:00:00 00:00:00 [facility] edical MPS Branch History SDME 2022-02-17 2022-02-17 5 University o f Financial 00:00:00 00:00:00 [place] [facility] History SDME Food 2022-02-17 2022-02-17 1 Univers ity of Worry 00:00:00 00:00:00 [place] [facility] History SDME Food 2022-02-17 2022-02-17 1 Univers ity of Scarcity 00:00:00 00:00:00 [place] [facility] History [facility] 2022-02-17 2022-02-17 2 University o f Transport Med 00:00:00 00:00:00 [place] Medic al Branch History [facility] 2022-02-17 2022-02-17 2 University o f Transport Non-Med 00:00:00 00:00:00 [facility] Branch Tobacco use and 2022-02-16 2022-02-16 Smokeless Universit y of exposure 00:00:00 00:00:00 tobacco non-user [facility] dical [place] Tobacco Comment 2022-02-16 2022-02-16 exposed to "a Univer sity of 00:00:00 00:00:00 lot" of passive [place] Med ical smoke from Branch Sex [birth year] At [birth year] Universit y of 00:00:00 00:00:00 [facility] Smoking Status Start Date Stop Date Source Never smoked tobacco [facility] Medications Ordered Filled Start Stop Current Ordering Indication Dosage Frequency Signature Comments Components Source Medication Medication Date Date Medication? Clinician (SIG) Name Name metoprolol Yes [id number] 50mg Take 1 Univers succinate 2-07 tablet by ity o f XL 50 mg 24 00:00: mouth 2 [place] hr tablet 00 (two) Medical times Branch daily. amiodarone 0 Yes [id number] 200mg Take 1 Univers 200 mg 1-26 tablet by ity of tablet 00:00: mouth [place] 00 daily. Medical Branch amiodarone 2022-0 Yes [id number] 200mg Take 1 Univers 200 mg 1-26 tablet by ity of tablet 00:00: mouth [place] 00 daily. Medical Branch amiodarone 2022-0 Yes [id number] 200mg Take 1 Univers 200 mg 1-26 tablet by ity of tablet 00:00: mouth [place] 00 daily. Medical Branch amiodarone 0 Yes [id number] 200mg Take 1 Univers 200 mg 1-26 tablet by ity of tablet 00:00: mouth [place] 00 daily. Medical Branch metoprolol 2022-2022- No 50mg Take 50 mg Univers succinate 1-10 -10 by mouth ity o f XL 50 mg 24 09:07: 00:00 daily. 1 [place] hr tablet 02 :00 tablet Medical twice a Branch day at 6am and 6pm metoprolol 2022-2022- No 50mg Take 50 mg Univers succinate -10 -10 by mouth ity o f XL 50 mg 24 09:07: 00:00 daily. 1 [place] hr tablet 02 :00 tablet Medical twice a Branch day at 6am and 6pm furosemide Yes [id number] 40mg Take 1 Univers 40 mg 1-10 tablet by ity of tablet 00:00: mouth [place] 00 every Medical morning Branch and evening. metoprolol Yes [id number] 50mg Take 1 Univers succinate 1-10 tablet by ity o f XL 50 mg 24 00:00: mouth 2 [place] hr tablet 00 (two) Medical times Branch daily. apixaban Yes 1358 2.5mg Take 1 Univer s (ELIQUIS) 1-10 tablet by ity o f 2.5 mg 00:00: mouth 2 [place] tablet 00 (two) Medical times Branch daily. Indication s: atrial fibrillati on furosemide Yes [id number] 40mg Take 1 Univers 40 mg 1-10 tablet by ity of tablet 00:00: mouth [place] 00 every Medical morning Branch and evening. metoprolol 2022- Yes [id number] 50mg Take 1 Univers succinate 1-10 tablet by ity o f XL 50 mg 24 00:00: mouth 2 [place] hr tablet 00 (two) Medical times Branch daily. apixaban 2022-0 Yes 1358 2.5mg Take 1 Univer s (ELIQUIS) 1-10 tablet by ity o f 2.5 mg 00:00: mouth 2 [place] tablet 00 (two) Medical times Branch daily. Indication s: atrial fibrillati on furosemide 2022-0 Yes [id number] 40mg Take 1 Univers 40 mg 1-10 tablet by ity of tablet 00:00: mouth [place] 00 every Medical morning Branch and evening. metoprolol 2022-0 Yes [id number] 50mg Take 1 Univers succinate 1-10 tablet by ity o f XL 50 mg 24 00:00: mouth 2 [place] hr tablet 00 (two) Medical times Branch daily. apixaban 2022-0 Yes 1358 2.5mg Take 1 Univer s (ELIQUIS) 1-10 tablet by ity o f 2.5 mg 00:00: mouth 2 [place] tablet 00 (two) Medical times Branch daily. Indication s: atrial fibrillati on furosemide 2022-0 Yes [id number] 40mg Take 1 Univers 40 mg 1-10 tablet by ity of tablet 00:00: mouth [place] 00 every Medical morning Branch and evening. metoprolol 2022-0 Yes [id number] 50mg Take 1 Univers succinate 1-10 tablet by ity o f XL 50 mg 24 00:00: mouth 2 [place] hr tablet 00 (two) Medical times Branch daily. apixaban 2022-0 Yes 1358 2.5mg Take 1 Univer s (ELIQUIS) 1-10 tablet by ity o f 2.5 mg 00:00: mouth 2 [place] tablet 00 (two) Medical times Branch daily. Indication s: atrial fibrillati on furosemide 2022-0 Yes [id number] 40mg Take 1 Univers 40 mg 1-10 tablet by ity of tablet 00:00: mouth [place] 00 every Medical morning Branch and evening. metoprolol 2022-0 Yes [id number] 50mg Take 1 Univers succinate 1-10 tablet by ity o f XL 50 mg 24 00:00: mouth 2 [place] hr tablet 00 (two) Medical times Branch daily. apixaban 2022-0 Yes 1358 2.5mg Take 1 Univer s (ELIQUIS) 1-10 tablet by ity o f 2.5 mg 00:00: mouth 2 [place] tablet 00 (two) Medical times Branch daily. Indication s: atrial fibrillati on furosemide 2022-0 Yes [id number] 40mg Take 1 Univers 40 mg 1-10 tablet by ity of tablet 00:00: mouth [place] 00 every Medical morning Branch and evening. metoprolol 2022-0 Yes [id number] 50mg Take 1 Univers succinate 1-10 tablet by ity o f XL 50 mg 24 00:00: mouth 2 [place] hr tablet 00 (two) Medical times Branch daily. apixaban 0 Yes 1358 2.5mg Take 1 Univer s (ELIQUIS) 1-10 tablet by ity o f 2.5 mg 00:00: mouth 2 [place] tablet 00 (two) Medical times Branch daily. Indication s: atrial fibrillati on furosemide 0 Yes [id number] 40mg Take 1 Univers 40 mg 1-10 tablet by ity of tablet 00:00: mouth [place] 00 every Medical morning Branch and evening. metoprolol 2022-0 Yes [id number] 50mg Take 1 Univers succinate 1-10 tablet by ity o f XL 50 mg 24 00:00: mouth 2 [place] hr tablet 00 (two) Medical times Branch daily. apixaban 2022-0 Yes 1358 2.5mg Take 1 Univer s (ELIQUIS) 1-10 tablet by ity o f 2.5 mg 00:00: mouth 2 [place] tablet 00 (two) Medical times Branch daily. Indication s: atrial fibrillati on furosemide 2022-0 Yes [id number] 40mg Take 1 Univers 40 mg 1-10 tablet by ity of tablet 00:00: mouth [place] 00 every Medical morning Branch and evening. apixaban 2022-0 Yes 1358 2.5mg Take 1 Univer s (ELIQUIS) 1-10 tablet by ity o f 2.5 mg 00:00: mouth 2 [place] tablet 00 (two) Medical times Branch daily. Indication s: atrial fibrillati on metoprolol 2022-0 3- No [id number] 50mg Take 1 Univers succinate 1-10 02-06 tablet by ity of XL 50 mg 24 00:00: 00:00 mouth 2 [place] hr tablet 00 :00 (two) Medical times Branch daily. insulin NPH 0 Yes [id number] 20U inject 20 Univers 100 unit/mL 1-02 Units ity of injection 00:00: under the [place] 00 skin every Medical morning. Branch insulin NPH 0 Yes [id number] 20U inject 20 Univers 100 unit/mL 1-02 Units ity of injection 00:00: under the [place] 00 skin every Medical morning. Branch insulin NPH 0 Yes [id number] 20U inject 20 Univers 100 unit/mL 1-02 Units ity of injection 00:00: under the [place] 00 skin every Medical morning. Branch insulin NPH 0 Yes [id number] 20U inject 20 Univers 100 unit/mL 1-02 Units ity of injection 00:00: under the [place] 00 skin every Medical morning. Branch insulin NPH 0 Yes [id number] 20U inject 20 Univers 100 unit/mL 1-02 Units ity of injection 00:00: under the [place] 00 skin every Medical morning. Branch insulin NPH 0 Yes [id number] 20U inject 20 Univers 100 unit/mL 1-02 Units ity of injection 00:00: under the [place] 00 skin every Medical morning. Branch insulin NPH 0 Yes [id number] 20U inject 20 Univers 100 unit/mL 1-02 Units ity of injection 00:00: under the [place] 00 skin every Medical morning. Branch insulin NPH 0 Yes [id number] 20U inject 20 Univers 100 unit/mL 1-02 Units ity of injection 00:00: under the [place] 00 skin every Medical morning. Branch insulin NPH 0 Yes [id number] 20U inject 20 Univers 100 unit/mL 1-02 Units ity of injection 00:00: under the [place] 00 skin every Medical morning. Branch insulin NPH 0 Yes [id number] 20U inject 20 Univers 100 unit/mL 1-02 Units ity of injection 00:00: under the [place] 00 skin every Medical morning. Branch furosemide 2022- No 40mg 40 mg, Univ ers (LASIX) 02-19 Oral, ity of tablet 40 19:00: 18:18 ONCE, 1 [place] mg 00 :00 dose, On Medical 02/19/22 Branch at 1300, Routine metoprolol 2023-0 Yes 50mg Take 50 mg U nivers succinate 1-01 by mouth ity of XL 50 mg 24 16:07: daily. 1 [place] hr tablet 22 tablet Medical twice a Branch day at 6am and 6pm PHENYTOIN 2023-0 Yes 100mg Take 100 Uni vers ORAL 1-01 mg by ity of 16:07: mouth [place] 22 daily. Medical Take 1 Branch capsule by mouth every morning and 2 capsules in the evening. metoprolol 2023-0 Yes 50mg Take 50 mg U nivers succinate 1-01 by mouth ity of XL 50 mg 24 16:07: daily. 1 [place] hr tablet 22 tablet Medical twice a Branch day at 6am and 6pm PHENYTOIN 2023-0 Yes 100mg Take 100 Uni vers ORAL 1-01 mg by ity of 16:07: mouth [place] 22 daily. Medical Take 1 Branch capsule by mouth every morning and 2 capsules in the evening. PHENYTOIN 2023-0 Yes 100mg Take 100 Uni vers ORAL 1-01 mg by ity of 16:07: mouth [place] 22 daily. Medical Take 1 Branch capsule by mouth every morning and 2 capsules in the evening. PHENYTOIN 2023-0 Yes 100mg Take 100 Uni vers ORAL 1-01 mg by ity of 16:07: mouth [place] 22 daily. Medical Take 1 Branch capsule by mouth every morning and 2 capsules in the evening. PHENYTOIN 2023-0 Yes 100mg Take 100 Uni vers ORAL 1-01 mg by ity of 16:07: mouth [place] 22 daily. Medical Take 1 Branch capsule by mouth every morning and 2 capsules in the evening. PHENYTOIN 2023-0 Yes 100mg Take 100 Uni vers ORAL 1-01 mg by ity of 16:07: mouth [place] 22 daily. Medical Take 1 Branch capsule by mouth every morning and 2 capsules in the evening. PHENYTOIN 2023-0 Yes 100mg Take 100 Uni vers ORAL 1-01 mg by ity of 16:07: mouth [place] 22 daily. Medical Take 1 Branch capsule by mouth every morning and 2 capsules in the evening. PHENYTOIN 2023-0 Yes 100mg Take 100 Uni vers ORAL 1-01 mg by ity of 16:07: mouth [place] 22 daily. Medical Take 1 Branch capsule by mouth every morning and 2 capsules in the evening. PHENYTOIN 2023-0 Yes 100mg Take 100 Uni vers ORAL 1-01 mg by ity of 16:07: mouth 22 daily. Medical Take 1 Branch capsule by mouth every morning and 2 capsules in the evening. PHENYTOIN 0 Yes 100mg Take 100 Uni vers ORAL 1-01 mg by ity of 16:07: mouth 22 daily. Medical Take 1 Branch capsule by mouth every morning and 2 capsules in the evening. melatonin 0 Yes 3mg 3 mg, Univers (MELATIN) 1-01 Oral, QHS, ity of tablet 3 mg 03:00: First dose [place] 00 on Sat Medical 02/18/22 Branch at 2100, Until Discontinu ed, Routine insulin NPH 0 Yes [id number] 15U inject 15 Univers 100 unit/mL 1-01 Units ity of injection 00:00: under the [place] 00 skin at Medical bedtime. Branch polyethylen 0 Yes [id number] 17g Take 1 Univers e glycol 1-01 Packet by ity of 3350 17 00:00: mouth [place] gram powder 00 every 24 Medi sandra (twenty-fo Branch ur) hours as needed for Constipati on. insulin NPH 0 Yes [id number] 15U inject 15 Univers 100 unit/mL 1-01 Units ity of injection 00:00: under the [place] 00 skin at Medical bedtime. Branch polyethylen 2022-0 Yes [id number] 17g Take 1 Univers e glycol 1-01 Packet by ity of 3350 17 00:00: mouth [place] gram powder 00 every 24 Medi sandra (twenty-fo Branch ur) hours as needed for Constipati on. insulin NPH 2022-0 Yes [id number] 15U inject 15 Univers 100 unit/mL 1-01 Units ity of injection 00:00: under the [place] 00 skin at Medical bedtime. Branch polyethylen 2022-0 Yes [id number] 17g Take 1 Univers e glycol 1-01 Packet by ity of 3350 17 00:00: mouth [place] gram powder 00 every 24 Medi sandra (twenty-fo Branch ur) hours as needed for Constipati on. insulin NPH 2022-0 Yes [id number] 15U inject 15 Univers 100 unit/mL 1-01 Units ity of injection 00:00: under the [place] 00 skin at Medical bedtime. Branch polyethylen 2022-0 Yes [id number] 17g Take 1 Univers e glycol 1-01 Packet by ity of 3350 17 00:00: mouth [place] gram powder 00 every 24 Medi sandra (twenty-fo Branch ur) hours as needed for Constipati on. insulin NPH 0 Yes [id number] 15U inject 15 Univers 100 unit/mL 1-01 Units ity of injection 00:00: under the [place] 00 skin at Medical bedtime. Branch polyethylen 0 Yes [id number] 17g Take 1 Univers e glycol 1-01 Packet by ity of 3350 17 00:00: mouth [place] gram powder 00 every 24 Medi sandra (twenty-fo Branch ur) hours as needed for Constipati on. insulin NPH 0 Yes [id number] 15U inject 15 Univers 100 unit/mL 1-01 Units ity of injection 00:00: under the [place] 00 skin at Medical bedtime. Branch polyethylen 0 Yes [id number] 17g Take 1 Univers e glycol 1-01 Packet by ity of 3350 17 00:00: mouth [place] gram powder 00 every 24 Medi sandra (twenty-fo Branch ur) hours as needed for Constipati on. insulin NPH Yes [id number] 15U inject 15 [facility] 100 unit/mL 1-01 Units ity of injection 00:00: under the [place] as 00 skin at Medical bedtime. Branch polyethylen 0 Yes [id number] 17g Take 1 Univers e glycol 1-01 Packet by ity of 3350 17 00:00: mouth [place] gram powder 00 every 24 Medi sandra (twenty-fo Branch ur) hours as needed for Constipati on. insulin NPH 0 Yes [id number] 15U inject 15 [facility] 100 unit/mL 1-01 Units ity of injection 00:00: under the [place] 00 skin at Medical bedtime. Branch polyethylen 0 Yes [id number] 17g Take 1 Univers e glycol 1-01 Packet by ity of 3350 17 00:00: mouth [place] gram powder 00 every 24 Medi sandra (twenty-fo Branch ur) hours as needed for Constipati on. insulin NPH 2022-0 Yes [id number] 15U inject 15 [facility] 100 unit/mL 1-01 Units ity of injection 00:00: under the [place] 00 skin at Medical bedtime. Branch polyethylen Yes [id number] 17g Take 1 [facility] e glycol 02-19 Packet by ity of 3350 17 00:00: mouth [place] gram powder 00 every 24 Medi sandar (twenty-fo Branch ur) hours as needed for Constipati on. insulin NPH Yes [id number] 15U inject 15 [facility] 100 unit/mL 1-01 Units ity of injection 00:00: under the [place] 00 skin at Medical bedtime. Branch polyethylen Yes [id number] 17g Take 1 [facility] e glycol 02-19 Packet by ity of 3350 17 00:00: mouth [place] gram powder 00 every 24 Medi sandra (twenty-fo Branch ur) hours as needed for Constipati on. furosemide 2022- Yes [id number] 40mg Take 1 [facility] 40 mg 02-19 tablet by ity of tablet 00:00: 05:59 mouth [place] 00 :00 every Medical morning Branch and evening for 30 days. furosemide 2022- Yes [id number] 40mg Take 1 [facility] 40 mg 02-19 tablet by ity of tablet 00:00: 05:59 mouth [place] 00 :00 every Medical morning Branch and evening for 30 days. furosemide 2022- No [id number] 40mg Take 1 [facility] 40 mg 02-19 tablet by ity of tablet 00:00: 00:00 mouth [place] 00 :00 every Medical morning Branch and evening for 30 days. furosemide 2022- No [id number] 40mg Take 1 [facility] 40 mg 02-19 tablet by ity of tablet 00:00: 00:00 mouth [place] 00 :00 every Medical morning Branch and evening for 30 days. LORazepam 2021-02 Yes .5mg 0.5 mg, Unive rs (ATIVAN) 2-31 Oral, ity of tablet 0.5 14:35: BIDPRN, [place] mg 38 Starting Medical on Sat Branch 02/18/22 at 0835, Until Discontinu ed, Routine, Anxiety Sliding 2021-02 Yes Subcutaneo Univ ers Scale 2-30 us, AC+HS, ity of Insulin-Reg 22:30: First dose [place] ular + Fsbg 00 on Sun Medica l Testing 02/17/22 Branch at 1630, Until Discontinu ed, Routine glucagon 2021-02 Yes 1mg 1 mg, Univers (GLUCAGEN 2-30 Intramuscu ity of DIAGNOSTIC 21:42: lar, PRN, [place] KIT) 38 Starting Medical injection 1 on Sun Branch mg 02/17/22 at 1542, Until Discontinu ed, JACQUI, Blood Glucose < or = 70 mg/dL and patient is unable to swallow or has mental changes. dextrose 50 2021-02 Yes 25mL 25 mL, Univ ers % in water 2-30 Slow IV ity of (D50W) 21:42: Push, PRN, [place] injection 38 Starting Medica l 25 mL on Sun Branch 02/17/22 at 1542, Until Discontinu ed, JACQUI, Blood Glucose < or = 70 mg/dL and patient is unable to swallow or has mental status changes. phenytoin 2021-02 Yes 100mg 100 mg, Univ ers Extended 2-30 Oral, QAM, ity o f (DILANTIN 15:00: First dose [place] KAPSEAL) 00 on Sun Medical capsule 100 02/17/22 Bran ch mg at 0900, Until Discontinu ed, Routine pantoprazol 2021-02 Yes 40mg 40 mg, Univ ers e 2-30 Oral, ity of (PROTONIX) 15:00: DAILY, [place] EC tablet 00 First dose Medi sandra 40 mg on Sun Branch 02/17/22 at 0900, Until Discontinu ed, Routine insulin NPH 2021-02 Yes 20U 20 Units, U nivers (HUMULIN N) 2-30 Subcutaneo it y of injection 15:00: us, QAM, [place] 20 Units 00 First dose Medic al on Sun Branch 02/17/22 at 0900, Until Discontinu ed, Routine amLODIPine 2021-02- No 10mg 10 mg, Univ ers (NORVASC) 2-02-18 Oral, ity of tablet 10 15:00: 14:59 DAILY, [place] mg 00 :07 First dose Medical on Sun Branch 02/17/22 at 0900, Until Discontinu ed, Routine sulfur 2021-02- No [id number] 5mL 5 mL, Un araseli hexafluorid 02-17 9103 Intravenou i ty of e microsphr 15:00: 15:00 s, ONCE, 1 [place] (LUMASON) 00 :00 dose, On Medica l injection 5 Fri Branch mL 02/17/22 at 0900, Routine
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 approving Restricted medication : SRIRAM HEATH polyethylen 2021-02 Yes 17g 17 g, Unive rs e glycol 2-30 Oral, ity of 3350 powder 05:09: [id number], [place] 17 g 36 Starting Medical on [facility] Branch 02/16/22 at 2309, Until Discontinu ed, Routine, Constipati on phenytoin 2021-02 Yes 200mg 200 mg, Univ ers Extended 2-30 Oral, QHS, ity o f (DILANTIN 03:00: First [place] KAPSEAL) 00 on [facility] capsule 200 02/16/22 Bran ch mg at 2100, Until Discontinu ed, Routine insulin NPH 2021-02 Yes 15U 15 Units, U nivers (HUMULIN N) 2-30 Subcutaneo it y of injection 03:00: us, [facility]HS, [facility] First dose Medic al on [facility] 02/16/22 at 2100, Until Discontinu ed, Routine atorvastati 2021-02 Yes 40mg 40 mg, Univ ers n (LIPITOR) 2-30 Oral, QHS, it y of tablet 40 03:00: First dose [place] mg 00 on [facility] 02/16/22 Branch at 2100, Until Discontinu ed, Routine levETIRAcet 2021-02 Yes 500mg 500 mg, Un araseli am (KEPPRA) 2-30 Oral, BID, it y of tablet 500 02:00: First dose [place] mg 00 on [facility] 02/16/22 Branch at 2000, Until Discontinu ed, Routine apixaban 2021-02 Yes 1358 5mg 5 mg, Univers (ELIQUIS) 2-30 Oral, BID, ity of tablet 5 mg 02:00: First dose [place] 00 on [facility] 02/16/22 Branch at 2000, Until Discontinu ed, Routine
Indicatio ns: Non-Valvul ar Atrial Fibrillati on furosemide 2021-02- No 40mg 40 mg, Univ ers (LASIX) 2-30 02-19 Slow IV ity of injection 02:00: 18:11 Push, [place] 40 mg 00 :42 Q12H, Medical First dose Branch on [place] 02/16/22 at 2000, Until Discontinu ed, Routine metoprolol 2021-02 No 50mg 50 mg, Univ ers succinate 02-18 Oral, BID, ity of XL (TOPROL 02:00: 14:37 First dose [place] XL) tablet 00 :05 on [facility] Medical 50 mg 02/16/22 Branch at 2000, Until Discontinu ed, Routine acetaminoph 2021-02 Yes 650mg 650 mg, Un araseli en Oral, ity of (TYLENOL) 23:02: Q6HPRN, [place] tablet 650 54 Starting Medic al mg on [place] Branch 02/16/22 at 1702, Until Discontinu ed, Routine, Pain (scale 1-3) metoprolol 2021-02 No 100mg Take 100 U nivers tartrate 02-16 mg by ity of 100 mg 17:05: 00:00 mouth 2 [place] tablet 51 :00 (two) Medical times Branch daily. nitroglycer 2021-02 No 1[in_us 1 Inch, Univers in (NITROL) 02-16 ] Transderma i ty of 2 % 17:00: 17:04 l (Apply [place] ointment 1 00 :00 To Skin), Medi sandra Inch ONCE, 1 Branch dose, On [place] 02/16/22 at 1100, JACQUI furosemide 2021-02- No 40mg 40 mg, IV U nivers (LASIX) 02-16 Push, ity of injection 17:00: 17:04 ONCE, 1 [place] 40 mg 00 :00 dose, On Medical [place] Branch 02/16/22 at 1100, JACQUI semaglutide 0 Yes [id number] .25mg inject Univers (OZEMPIC) 8-17 0.25 mg ity of 0.25 mg or 00:00: under the [place] 0.5 mg(2 00 skin Medical mg/1.5 mL) weekly. Branch PnIj semaglutide Yes [id number] .25mg inject Univers (OZEMPIC) 8-17 0.25 mg ity of 0.25 mg or 00:00: under the [place] 0.5 mg(2 00 skin Medical mg/1.5 mL) weekly. Branch PnIj semaglutide 2021-0 Yes [id number] .25mg inject Univers (OZEMPIC) 8-17 0.25 mg ity of 0.25 mg or 00:00: under the [place] 0.5 mg(2 00 skin Medical mg/1.5 mL) weekly. Branch PnIj semaglutide 2021-0 Yes [id number] .25mg inject Univers (OZEMPIC) 8-17 0.25 mg ity of 0.25 mg or 00:00: under the [place] 0.5 mg(2 00 skin Medical mg/1.5 mL) weekly. Branch PnIj semaglutide 0 Yes [id number] .25mg inject Univers (OZEMPIC) 8-17 0.25 mg ity of 0.25 mg or 00:00: under the [place] 0.5 mg(2 00 skin Medical mg/1.5 mL) weekly. Branch PnIj semaglutide 0 Yes [id number] .25mg inject Univers (OZEMPIC) 8-17 0.25 mg ity of 0.25 mg or 00:00: under the [place] 0.5 mg(2 00 skin Medical mg/1.5 mL) weekly. Branch VickiIj semaglutide 0 Yes [id number] .25mg inject Univers (OZEMPIC) 8-17 0.25 mg ity of 0.25 mg or 00:00: under the [place] 0.5 mg(2 00 skin Medical mg/1.5 mL) weekly. Branch VickiIj semaglutide 2021-0 Yes [id number] .25mg inject Univers (OZEMPIC) 8-17 0.25 mg ity of 0.25 mg or 00:00: under the [place] 0.5 mg(2 00 skin Medical mg/1.5 mL) weekly. Branch VickiIj semaglutide 2021-0 Yes [id number] .25mg inject Univers (OZEMPIC) 8-17 0.25 mg ity of 0.25 mg or 00:00: under the [place] 0.5 mg(2 00 skin Medical mg/1.5 mL) weekly. Branch VickiIj semaglutide 2021-0 Yes [id number] .25mg inject Univers (OZEMPIC) 8-17 0.25 mg ity of 0.25 mg or 00:00: under the [place] 0.5 mg(2 00 skin Medical mg/1.5 mL) weekly. Branch PnIj semaglutide 2021-0 Yes [id number] .25mg inject Univers (OZEMPIC) 8-17 0.25 mg ity of 0.25 mg or 00:00: under the [place] 0.5 mg(2 00 skin Medical mg/1.5 mL) weekly. Branch PnIj semaglutide 2021-0 Yes [id number] .25mg inject Univers (OZEMPIC) 8-17 0.25 mg ity of 0.25 mg or 00:00: under the [place] 0.5 mg(2 00 skin Medical mg/1.5 mL) weekly. Branch PnIj semaglutide 2021-0 Yes [id number] .25mg inject Univers (OZEMPIC) 8-17 0.25 mg ity of 0.25 mg or 00:00: under the [place] 0.5 mg(2 00 skin Medical mg/1.5 mL) weekly. Branch PnIj PHENYTOIN 2-0 Yes 100mg Take 100 Uni vers ORAL 6-13 mg by ity of 13:50: mouth [place] 06 daily. Medical Take 1 Branch capsule by mouth every morning and 2 capsules in the evening. PHENYTOIN 2022-0 Yes 100mg Take 100 Uni vers ORAL 6-13 mg by ity of 13:50: mouth [place] 06 daily. Medical Take 1 Branch capsule by mouth every morning and 2 capsules in the evening. PHENYTOIN 2022-0 Yes 100mg Take 100 Uni vers ORAL 6-13 mg by ity of 13:50: mouth [place] 06 daily. Medical Take 1 Branch capsule by mouth every morning and 2 capsules in the evening. amLODIPine 2022-0 Yes [id number] 10mg Take 1 U nivers 10 mg 6-13 tablet by ity of tablet 00:00: mouth [place] 00 daily. Medical Branch amLODIPine 2022-0 Yes [id number] 10mg Take 1 U nivers 10 mg 6-13 tablet by ity of tablet 00:00: mouth [place] 00 daily. Medical Branch amLODIPine 2022-0 Yes [id number] 10mg Take 1 U nivers 10 mg 6-13 tablet by ity of tablet 00:00: mouth [place] 00 daily. Medical Branch amLODIPine 2021-0 Yes [id number] 10mg Take 1 U nivers 10 mg 6-13 tablet by ity of tablet 00:00: mouth [place] 00 daily. Medical Branch amLODIPine 2021-0 Yes [id number] 10mg Take 1 U nivers 10 mg 6-13 tablet by ity of tablet 00:00: mouth [place] 00 daily. Medical Branch amLODIPine 2021-0 3- No [id number] 10mg Take 1 Univers 10 mg 6-13 01-10 tablet by ity of tablet 00:00: 00:00 mouth [place] 00 :00 daily. Medical Branch amLODIPine 2021-0 3- No [id number] 10mg Take 1 [facility] 10 mg 6-13 01-10 tablet by ity of tablet 00:00: 00:00 mouth [place] 00 :00 daily. Medical Branch apixaban 2021-0 Yes 1358 5mg Take 1 Univers (ELIQUIS) 5 6-07 tablet by ity of mg tablet 00:00: mouth (two) Medical times Branch daily. Indication s: atrial fibrillati on apixaban 2021-0 Yes 1358 5mg Take 1 Univers (ELIQUIS) 5 6-07 tablet by ity of mg tablet 00:00: mouth (two) Medical times Branch daily. Indication s: atrial fibrillati on apixaban 2-0 Yes 1358 5mg Take 1 Univers (ELIQUIS) 5 6-07 tablet by ity of mg tablet 00:00: mouth (two) Medical times Branch daily. Indication s: atrial fibrillati on apixaban 2-0 Yes 1358 5mg Take 1 Univers (ELIQUIS) 5 6-07 tablet by ity of mg tablet 00:00: mouth (two) Medical times Branch daily. Indication s: atrial fibrillati on apixaban 2-0 Yes 1358 5mg Take 1 Univers (ELIQUIS) 5 6-07 tablet by ity of mg tablet 00:00: mouth 2 (two) Medical times Branch daily. Indication s: atrial fibrillati on apixaban 2-0 2023- No 1358 5mg Take 1 Univer s (ELIQUIS) 5 6-07 01-10 tablet by it y of mg tablet 00:00: 00:00 mouth 2 [place] 00 :00 (two) Medical times Branch daily. Indication s: atrial fibrillati on apixaban 2023- No 1358 5mg Take 1 Univer s (ELIQUIS) 5 6-07 01-10 tablet by it y of mg tablet 00:00: 00:00 mouth 2 [place] 00 :00 (two) Medical times Branch daily. Indication s: atrial fibrillati on OXCARBAZEPI Yes [id number] TAKE 1 Univers NE 150 mg 3-08 TABLET 2 X ity of tablet 00:00: A DAY FOR [place] 1 WEEK Medical THEN 2 Branch TABS 2X DAY FOR 1 WEEK 3 TABLES 2XADAY OXCARBAZEPI 2021-0 Yes [id number] TAKE 1 Univers [place] 150 mg 3-08 TABLET 2 X ity of tablet 00:00: A DAY FOR [place] 1 WEEK Medical THEN 2 Branch TABS 2X DAY FOR 1 WEEK 3 TABLES 2XADAY OXCARBAZEPI 2021-0 Yes [id number] TAKE 1 Univers [place] 150 mg 3-08 TABLET 2 X ity of tablet 00:00: A DAY FOR [place] 1 WEEK Medical THEN 2 Branch TABS 2X DAY FOR 1 WEEK 3 TABLES 2XADAY OXCARBAZEPI 2021-0 Yes [id number] TAKE 1 Univers [place] 150 mg 3-08 TABLET 2 X ity of tablet 00:00: A DAY FOR [place] 1 WEEK Medical THEN 2 Branch TABS 2X DAY FOR 1 WEEK 3 TABLES 2XADAY OXCARBAZEPI 2021-0 Yes [id number] TAKE 1 Univers NE 150 mg 3-08 TABLET 2 X ity of tablet 00:00: A DAY FOR [place] 1 WEEK Medical THEN 2 Branch TABS 2X DAY FOR 1 WEEK 3 TABLES 2XADAY OXCARBAZEPI 2021-0 Yes [id number] TAKE 1 Univers [place] 150 mg 3-08 TABLET 2 X ity of tablet 00:00: A DAY FOR [place] 1 WEEK Medical THEN 2 Branch TABS 2X DAY FOR 1 WEEK 3 TABLES 2XADAY OXCARBAZEPI 2021-0 Yes [id number] TAKE 1 Univers [place] 150 mg 3-08 TABLET 2 X ity of tablet 00:00: A DAY FOR [place] 1 WEEK Medical THEN 2 Branch TABS 2X DAY FOR 1 WEEK 3 TABLES 2XADAY OXCARBAZEPI 2021-0 Yes [id number] TAKE 1 Univers NE 150 mg 3-08 TABLET 2 X ity of tablet 00:00: A DAY FOR [place] 00 1 WEEK Medical THEN 2 Branch TABS 2X DAY FOR 1 WEEK 3 TABLES 2XADAY OXCARBAZEPI 2022-0 Yes [id number] TAKE 1 Univers NE 150 mg 3-08 TABLET 2 X ity of tablet 00:00: A DAY FOR [place] 00 1 WEEK Medical THEN 2 Branch TABS 2X DAY FOR 1 WEEK 3 TABLES 2XADAY OXCARBAZEPI 2022-0 Yes [id number] TAKE 1 Univers NE 150 mg 3-08 TABLET 2 X ity of tablet 00:00: A DAY FOR [place] 00 1 WEEK Medical THEN 2 Branch TABS 2X DAY FOR 1 WEEK 3 TABLES 2XADAY OXCARBAZEPI 2-0 Yes [id number] TAKE 1 Univers NE 150 mg 3-08 TABLET 2 X ity of tablet 00:00: A DAY FOR [place] 00 1 WEEK Medical THEN 2 Branch TABS 2X DAY FOR 1 WEEK 3 TABLES 2XADAY OXCARBAZEPI 2-0 Yes [id number] TAKE 1 Univers NE 150 mg 3-08 TABLET 2 X ity of tablet 00:00: A DAY FOR [place] 00 1 WEEK Medical THEN 2 Branch TABS 2X DAY FOR 1 WEEK 3 TABLES 2XADAY OXCARBAZEPI 2022-0 Yes [id number] TAKE 1 Univers NE 150 mg 3-08 TABLET 2 X ity of tablet 00:00: A DAY FOR [place] 00 1 WEEK Medical THEN 2 Branch TABS 2X DAY FOR 1 WEEK 3 TABLES 2XADAY metoprolol 2021-0 Yes 100mg Take 100 Un araseli tartrate 2-25 mg by ity of 100 mg 10:14: mouth 2 [place] tablet 06 (two) Medical times Branch daily. metoprolol 2-0 Yes 50mg Take 50 mg U nivers succinate 2-25 by mouth ity of XL 50 mg 24 10:14: daily. 1 [place] hr tablet 06 tablet Medical twice a Branch day at 6am and 6pm metoprolol 2-0 Yes 100mg Take 100 Un araseli tartrate 2-25 mg by ity of 100 mg 10:14: mouth 2 [place] tablet 06 (two) Medical times Branch daily. metoprolol 2-0 Yes 50mg Take 50 mg U nivers succinate 2-25 by mouth ity of XL 50 mg 24 10:14: daily. 1 [place] hr tablet 06 tablet Medical twice a Branch day at 6am and 6pm metoprolol 0 Yes 100mg Take 100 Un araseli tartrate 2-25 mg by ity of 100 mg 10:14: mouth 2 [place] tablet 06 (two) Medical times [place] daily. metoprolol 0 Yes 50mg Take 50 mg U nivers succinate 2-25 by mouth ity of XL 50 mg 24 10:14: daily. 1 [place] hr tablet 06 tablet Medical twice a Branch day at 6am and 6pm insulin NPH 0 Yes [id number] 10U inject Univers (NOVOLIN N 04-13 10-15 ity of NPH U-100 00:00: Units [place] INSULIN) 00 under the Medica l 100 unit/mL skin every Br anch injection evening. insulin NPH Yes [id number] 10U inject Univers (NOVOLIN N 04-13 10-15 ity of NPH U-100 00:00: Units [place] INSULIN) 00 under the Medica l 100 unit/mL skin every Br anch injection evening. insulin NPH Yes [id number] 10U inject Univers (NOVOLIN N 04-13 10-15 ity of NPH U-100 00:00: Units [place] INSULIN) 00 under the Medica l 100 unit/mL skin every Br anch injection evening. insulin NPH 3- No [id number] 10U inject Univers (NOVOLIN N 202-19 10-15 ity of NPH U-100 00:00: 00:00 Units [place] INSULIN) 00 :00 under the Medica l 100 unit/mL skin every Br anch injection evening. furosemide Yes [id number] 20mg Take 1 Univers 20 mg 1-27 tablet by ity of tablet 00:00: mouth [place] 00 daily. Medical Branch levETIRAcet 2021-0 Yes [id number] 500mg Take 1 Univers am 500 mg 1-27 tablet by ity o f tablet 00:00: mouth 2 [place] 00 (two) Medical times Branch daily. furosemide 2021-0 Yes [id number] 20mg Take 1 [facility] 20 mg 1-27 tablet by ity of tablet 00:00: mouth [place] 00 daily. Medical Branch levETIRAcet 0 Yes [id number] 500mg Take 1 Univers am 500 mg 1-27 tablet by ity o f tablet 00:00: mouth (two) Medical times Branch daily. furosemide 2-0 Yes [id number] 20mg Take 1 Univers 20 mg 1-27 tablet by ity of tablet 00:00: mouth daily. Medical Branch levETIRAcet 2-0 Yes [id number] 500mg Take 1 Univers am 500 mg 1-27 tablet by ity o f tablet 00:00: mouth (two) Medical times Branch daily. levETIRAcet 2021-0 Yes [id number] 500mg Take 1 Univers am 500 mg 1-27 tablet by ity o f tablet 00:00: [facility] (two) Medical times Branch daily. levETIRAcet 2021-0 Yes [id number] 500mg Take 1 Univers am 500 mg 1-27 tablet by ity o f tablet 00:00: [facility] (two) Medical times Branch daily. levETIRAcet 2021-0 Yes [id number] 500mg Take 1 Univers am 500 mg 1-27 tablet by ity o f tablet 00:00: mouth (two) Medical times Branch daily. levETIRAcet 2021-0 Yes [id number] 500mg Take 1 Univers am 500 mg 1-27 tablet by ity o f tablet 00:00: [facility] (two) Medical times Branch daily. levETIRAcet 2021-0 Yes [id number] 500mg Take 1 Univers am 500 mg 1-27 tablet by ity o f tablet 00:00: [facility] (two) Medical times Branch daily. levETIRAcet 2021-0 Yes [id number] 500mg Take 1 Univers am 500 mg 1-27 tablet by ity o f tablet 00:00: mouth (two) Medical times Branch daily. levETIRAcet 2-0 Yes [id number] 500mg Take 1 Univers am 500 mg 1-27 tablet by ity o f tablet 00:00: mouth (two) Medical times Branch daily. levETIRAcet 2-0 Yes [id number] 500mg Take 1 Univers am 500 mg 1-27 tablet by ity o f tablet 00:00: mouth (two) Medical times Branch daily. levETIRAcet 2021-0 Yes [id number] 500mg Take 1 Univers am 500 mg 1-27 tablet by ity o f tablet 00:00: mouth 2 00 (two) Medical times Branch daily. levETIRAcet 2021-0 Yes [id number] 500mg Take 1 Univers am 500 mg 1-27 tablet by ity o f tablet 00:00: mouth 2 00 (two) Medical times Branch daily. furosemide 0 3- No [id number] 20mg Take 1 Univers 20 mg 1-27 02-19 tablet by ity of tablet 00:00: 00:00 mouth [place] 00 :00 daily. Medical Branch pantoprazol 0 Yes [id number] 40mg Take 1 Univers e 40 mg EC 1-21 tablet by ity of tablet 00:00: mouth [place] 00 daily. Medical Branch pantoprazol 0 Yes [id number] 40mg Take 1 Univers e 40 mg EC 1-21 tablet by ity of tablet 00:00: mouth [place] 00 daily. Medical Branch pantoprazol 0 Yes [id number] 40mg Take 1 Univers e 40 mg EC 1-21 tablet by ity of tablet 00:00: mouth [place] 00 daily. Medical Branch pantoprazol 0 Yes [id number] 40mg Take 1 Univers e 40 mg EC 1-21 tablet by ity of tablet 00:00: mouth [place] 00 daily. Medical Branch pantoprazol 0 Yes [id number] 40mg Take 1 Univers e 40 mg EC 1-21 tablet by ity of tablet 00:00: mouth [place] 00 daily. Medical Branch pantoprazol 2021-0 Yes [id number] 40mg Take 1 Univers e 40 mg EC 1-21 tablet by ity of tablet 00:00: mouth [place] 00 daily. Medical Branch pantoprazol 2021-0 Yes [id number] 40mg Take 1 Univers e 40 mg EC 1-21 tablet by ity of tablet 00:00: mouth [place] 00 daily. Medical Branch pantoprazol 0 Yes [id number] 40mg Take 1 Univers e 40 mg EC 1-21 tablet by ity of tablet 00:00: mouth [place] 00 daily. Medical Branch pantoprazol 2021-0 Yes [id number] 40mg Take 1 Univers e 40 mg EC 1-21 tablet by ity of tablet 00:00: mouth [place] 00 daily. Medical Branch pantoprazol 0 Yes [id number] 40mg Take 1 Univers e 40 mg EC 1-21 tablet by ity of tablet 00:00: mouth [place] 00 daily. Medical Branch pantoprazol 0 Yes [id number] 40mg Take 1 Univers e 40 mg EC 1-21 tablet by ity of tablet 00:00: mouth [place] 00 daily. Medical Branch pantoprazol 0 Yes [id number] 40mg Take 1 Univers e 40 mg EC 1-21 tablet by ity of tablet 00:00: mouth [place] 00 daily. Medical Branch pantoprazol Yes [id number] 40mg Take 1 Univers e 40 mg EC 1-21 tablet by ity of tablet 00:00: mouth [place] 00 daily. Medical Branch atorvastati 2020-02 Yes [id number] 40mg Take 1 Univers n 40 mg 2-14 tablet by ity of tablet 00:00: mouth at [place] 00 bedtime. Medical Branch insulin 2020-02 Yes 8U inject 8 Univer s regular 2-14 Units ity of human 00:00: under the [place] (NOVOLIN R 00 skin Medical REGULAR daily. Branch U-100 Daily at [facility]) 100 noon unit/mL injection atorvastati 2020-02 Yes [id number] 40mg Take 1 Univers n 40 mg 2-14 tablet by ity of tablet 00:00: mouth at [place] 00 bedtime. Medical Branch insulin 2020-02 Yes 8U inject 8 Univer s regular 2-14 Units ity of human 00:00: under the [place] (NOVOLIN R 00 skin Medical REGULAR daily. Branch U-100 Daily at [facility]) 100 noon unit/mL injection atorvastati 2020-02 Yes [id number] 40mg Take 1 Univers n 40 mg 2-14 tablet by ity of tablet 00:00: mouth at [place] 00 bedtime. Medical Branch insulin 2020-02 Yes 8U inject 8 Univer s regular 2-14 Units ity of human 00:00: under the [place] (NOVOLIN R 00 skin Medical REGULAR daily. Branch U-100 Daily at [facility]) 100 noon unit/mL injection atorvastati 2020-02 Yes [id number] 40mg Take 1 Univers n 40 mg 2-14 tablet by ity of tablet 00:00: mouth at [place] 00 bedtime. Medical Branch atorvastati 2020-02 Yes [id number] 40mg Take 1 Univers n 40 mg 2-14 tablet by ity of tablet 00:00: mouth at [place] [address] bedtime. Medical Branch atorvasta 2020-02 Yes [id number] 40mg Take 1 Univers n 40 mg 2-14 tablet by ity of tablet 00:00: mouth at [place] [address] bedtime. Medical Branch atorvasta 2020-02 Yes [id number] 40mg Take 1 Univers n 40 mg 2-14 tablet by ity of tablet 00:00: mouth at [place] [address] bedtime. [facility] Yes [id number] 40mg Take 1 Univers n 40 mg 2-14 tablet by ity of tablet 00:00: mouth at [place] [address] bedtime. [facility] Yes [id number] 40mg Take 1 Univers n 40 mg 2-14 tablet by ity of tablet 00:00: mouth at [place] [address] bedtime. Medical [facility]-02 Yes [id number] 40mg Take 1 Univers n 40 mg 2-14 tablet by ity of tablet 00:00: mouth at [place] [address] bedtime. Medical [facility]-02 Yes [id number] 40mg Take 1 Univers n 40 mg 2-14 tablet by ity of tablet 00:00: mouth at [place] [address] bedtime. Medical [facility]02 Yes [id number] 40mg Take 1 Univers n 40 mg 2-14 tablet by ity of tablet 00:00: mouth at [place] [address] bedtime. Medical [facility] 2020-02 Yes [id number] 40mg Take 1 Univers n 40 mg 2-14 tablet by ity of tablet 00:00: mouth at [place] [address] bedtime. Medical Branch insulin 2020-02- No 8U inject 8 Unive rs regular 2-14 - Units ity of human 00:00: 00:00 under the [place] (NOVOLIN R 00 :00 skin Medical REGULAR daily. Branch U-100 Daily at [facility]) 100 noon unit/mL injection Blood-Gluco Yes Check [employer] se Meter 5-15 glucose ity of Kit 00:00: once daily [place] 00 before Medical breakfast; Branch Diagnosis code E11.9 blood sugar Yes Check [employer] rs diagnostic 5-15 glucose ity of (BLOOD [...] Immunizations Ordered Filled Immunization Date Status Comments [facility] e Immunization Name Name Influenza Virus 2022-03-16 Completed Universit y of Vaccine,quad 00:00:00 [place] Medica l Im,preserve Free Branch 65+ Influenza Virus 2022-03-16 Completed Universit y of Vaccine,quad 00:00:00 [place] Medica l Im,preserve Free Branch 65+ Influenza Virus 2022-03-16 Completed Universit y of Vaccine,quad 00:00:00 [place] Medica l Im,preserve Free Branch 65+ Influenza Virus 2022-03-16 Completed Universit y of Vaccine,quad 00:00:00 [place] Medica l Im,preserve Free Branch 65+ SARS-COV-2 COVID-19 2021-01-31 Completed Unive rsity of MODERNA 0.25ML 00:00:00 [place] Medi sandra BOOSTER VACCINE Branch SARS-COV-2 COVID-19 2021-01-31 Completed Unive rsity of MODERNA 0.25ML 00:00:00 [place] Medi sandra BOOSTER VACCINE Branch SARS-COV-2 COVID-19 2021-01-31 Completed Unive rsity of MODERNA 0.25ML 00:00:00 [place] [facility] BOOSTER VACCINE Branch SARS-COV-2 COVID-19 2021-01-31 Completed Unive rsity of MODERNA 0.25ML 00:00:00 [place] [facility] BOOSTER VACCINE Branch SARS-COV-2 COVID-19 2021-01-31 Completed Unive rsity of MODERNA 0.25ML 00:00:00 [place] [facility] BOOSTER VACCINE Branch SARS-COV-2 COVID-19 2021-01-31 Completed Unive rsity of MODER[place] 0.25ML 00:00:00 [place] [facility] BOOSTER VACCINE Branch SARS-COV-2 COVID-19 2021-01-31 Completed Unive rsity of MODERNA 0.25ML 00:00:00 [place] [facility] BOOSTER VACCINE Branch SARS-COV-2 COVID-19 2021-01-31 Completed Unive rsity of MODERNA 0.25ML 00:00:00 [place] [facility] BOOSTER VACCINE Branch SARS-COV-2 COVID-19 2021-01-31 Completed Unive rsity of MODERNA 0.25ML 00:00:00 [place] [facility] BOOSTER VACCINE Branch SARS-COV-2 COVID-19 2021-01-31 Completed Unive rsity of MODERNA 0.25ML 00:00:00 [place] [facility] BOOSTER VACCINE Branch SARS-COV-2 COVID-19 2021-01-31 Completed Unive rsity of MODERNA 0.25ML 00:00:00 [facility] sandra BOOSTER VACCINE Branch SARS-COV-2 COVID-19 2021-01-31 Completed Unive rsity of MODERNA 0.25ML 00:00:00 [facility] sandar BOOSTER VACCINE Branch SARS-COV-2 COVID-19 2021-01-31 Completed Unive rsity of MODERNA 0.25ML 00:00:00 [facility] sandra BOOSTER VACCINE Branch Influenza Virus 2020-12-03 [...] COVID-19 2020-04-26 Completed Unive rsity of MODERNA 12+ YRS 00:00:00 [place] [facility] VACCINE Branch SARS-COV-2 COVID-19 2020-04-26 Completed Unive rsity of MODERNA 12+ YRS 00:00:00 [place] [facility] VACCINE Branch SARS-COV-2 COVID-19 2020-04-26 Completed Unive rsity of MODERNA 12+ YRS 00:00:00 [place] [facility] VACCINE Branch SARS-COV-2 COVID-19 2020-04-26 Completed Unive rsity of MODERNA 12+ YRS 00:00:00 [place] [facility] VACCINE Branch SARS-COV-2 COVID-19 2020-04-26 Completed Unive rsity of MODERNA 12+ YRS 00:00:00 [place] [facility] VACCINE Branch SARS-COV-2 COVID-19 2020-04-26 Completed Unive rsity of MODERNA 12+ YRS 00:00:00 [place] [facility] VACCINE Branch SARS-COV-2 COVID-19 2020-04-26 Completed Unive rsity of MODERNA 12+ YRS 00:00:00 [place] [facility] VACCINE Branch SARS-COV-2 COVID-19 2020-04-26 Completed Unive rsity of MODERNA 12+ YRS 00:00:00 [place] [facility] VACCINE Branch SARS-COV-2 COVID-19 2020-04-26 Completed Unive rsity of MODERNA 12+ YRS 00:00:00 [place] [facility] VACCINE Branch SARS-COV-2 COVID-19 2020-04-26 Completed Unive rsity of MODERNA 12+ YRS 00:00:00 [place] [facility] VACCINE Branch SARS-COV-2 COVID-19 2020-04-26 Completed Unive rsity of MODERNA 12+ YRS 00:00:00 [place] [facility] VACCINE Branch SARS-COV-2 COVID-19 2020-04-26 Completed Unive rsity of MODERNA 12+ YRS 00:00:00 [place] [facility] VACCINE Branch SARS-COV-2 COVID-19 2020-04-26 Completed Unive rsity of MODERNA 12+ YRS 00:00:00 [place] [facility] VACCINE Branch SARS-COV-2 COVID-19 2020-03-29 Completed Unive rsity of MODERNA 12+ YRS 00:00:00 [place] [facility] VACCINE Branch SARS-COV-2 COVID-19 2020-03-29 Completed Unive rsity of MODERNA 12+ YRS 00:00:00 [place] [facility] VACCINE Branch SARS-COV-2 COVID-19 2020-03-29 Completed Unive rsity of MODERNA 12+ YRS 00:00:00 [place] [facility] VACCINE Branch SARS-COV-2 COVID-19 2020-03-29 Completed Unive rsity of MODERNA 12+ YRS 00:00:00 [place] [facility] VACCINE Branch SARS-COV-2 COVID-19 2020-03-29 Completed Unive rsity of MODERNA 12+ YRS 00:00:00 [place] [facility] VACCINE Branch SARS-COV-2 COVID-19 2020-03-29 Completed Unive rsity of MODERNA 12+ YRS 00:00:00 [place] [facility] VACCINE Branch SARS-COV-2 COVID-19 2020-03-29 Completed Unive rsity of MODERNA 12+ YRS 00:00:00 [place] [facility] VACCINE Branch SARS-COV-2 COVID-19 2020-03-29 Completed Unive rsity of MODERNA 12+ YRS 00:00:00 [place] [facility] VACCINE Branch SARS-COV-2 COVID-19 2020-03-29 Completed Unive rsity of MODERNA 12+ YRS 00:00:00 [place] [facility] VACCINE Branch SARS-COV-2 COVID-19 2020-03-29 Completed Unive rsity of MODERNA 12+ YRS 00:00:00 [place] [facility] VACCINE Branch SARS-COV-2 COVID-19 2020-03-29 Completed Unive rsity of MODERNA 12+ YRS 00:00:00 [place] [facility] VACCINE Branch SARS-COV-2 COVID-19 2020-03-29 Completed Unive rsity of MODERNA 12+ YRS 00:00:00 [place] [facility] VACCINE Branch SARS-COV-2 COVID-19 2020-03-29 Completed Unive rsity of MODERNA 12+ YRS 00:00:00 [place] [facility] VACCINE Branch Pneumococcal 13 2019-12-19 Completed Universit y of Conjugate, PCV13 00:00:00 [facility] dical (Prevnar 13) Branch Pneumococcal 13 2019-12-19 Completed Universit y of Conjugate, PCV13 00:00:00 [facility] dical (Prevnar 13) Branch Pneumococcal 13 2019-12-19 Completed Universit y of Conjugate, PCV13 00:00:00 [facility] dical (Prevnar 13) Branch Pneumococcal 13 2019-12-19 [...] [facility] ([facility] 13[facility] Branch Pneumococcal 13 2019-12-19 Completed Universit y of Conjugate, PCV13 00:00:00 [place] [facility] (Prevnar 13) Branch Pneumococcal 13 2019-12-19 Completed Universit y of Conjugate, PCV13 00:00:00 [facility] dical (Prevnar 13) Branch Pneumococcal 13 2019-12-19 Completed Universit y of Conjugate, PCV13 00:00:00 [facility] dical (Prevnar 13) Branch Influenza Virus 2019-11-22 Completed Universit y of Vaccine Recomb Quad 00:00:00 [place] [facility], Preserv and ABX Branc h Free 18-64 YRS Influenza Virus 2019-11-22 Completed Universit y of Vaccine Recomb Quad 00:00:00 [facility] [place] [facility], Preserv and ABX Branc h Free 18-64 YRS Influenza Virus 2019-11-22 Completed Universit y of Vaccine Recomb Quad 00:00:00 [place] [facility], Preserv and ABX Branc h Free 18-64 YRS Influenza Virus 2019-11-22 Completed Universit y of Vaccine Recomb Quad 00:00:00 [facility], Preserv and ABX Branc h Free 18-64 YRS Influenza Virus 2019-11-22 Completed Universit y of Vaccine Recomb Quad 00:00:00 [facility] [place] [facility], Preserv and ABX Branc h [...] Dosage 2018-03-25 Completed Unive rsity of 00:00:00 [facility] HEP B, Adult Dosage 2018-03-25 Completed Unive rsity of 00:00:00 [facility] Branch HEP B, Adult Dosage 2018-03-25 Completed Unive rsity of 00:00:00 [facility] HEP B, Adult Dosage 2018-03-25 Completed Unive rsity of 00:00:00 [facility] HEP B, Adult Dosage 2018-03-25 Completed Unive rsity of 00:00:00 [facility] HEP B, Adult Dosage 2018-03-25 Completed Unive rsity of 00:00:00 [place] [facility] HEP B, Adult Dosage 2018-03-25 Completed Unive rsity of 00:00:00 [facility] Branch HEP B, Adult Dosage 2018-03-25 Completed Unive rsity of 00:00:00 [facility] HEP B, Adult Dosage 2018-03-25 Completed Unive rsity of 00:00:00 [place] [facility] HEP B, Adult Dosage 2018-03-25 Completed Unive rsity of 00:00:00 [place] [facility] HEP B, Adult Dosage 2018-03-25 Completed Unive rsity of 00:00:00 [place] [facility] HEP B, Adult Dosage 2018-03-25 Completed Unive rsity of 00:00:00 [place] [facility] HEP B, Adult Dosage 2018-03-25 Completed Unive rsity of 00:00:00 [place] [facility] HEP B, Adult Dosage 2017-10-10 Completed Unive rsity of 00:00:00 [place] [facility] HEP B, Adult Dosage 2017-10-10 Completed Unive rsity of 00:00:00 [place] [facility] HEP B, Adult Dosage 2017-10-10 Completed Unive rsity of 00:00:00 [place] [facility] HEP B, Adult Dosage 2017-10-10 Completed Unive rsity of 00:00:00 [place] [facility] HEP B, Adult Dosage 2017-10-10 Completed Unive rsity of 00:00:00 [place] [facility] HEP B, Adult Dosage 2017-10-10 Completed Unive rsity of 00:00:00 [place] [facility] HEP B, Adult Dosage 2017-10-10 Completed Unive rsity of 00:00:00 [place] [facility] HEP B, Adult Dosage 2017-10-10 Completed Unive rsity of 00:00:00 [place] [facility] HEP B, Adult Dosage 2017-10-10 Completed Unive rsity of 00:00:00 [place] [facility] HEP B, Adult Dosage 2017-10-10 Completed Unive rsity of 00:00:00 [place] [facility] HEP B, Adult Dosage 2017-10-10 Completed Unive rsity of 00:00:00 [place] [facility] HEP B, Adult Dosage 2017-10-10 Completed Unive rsity of 00:00:00 [place] [facility] HEP B, Adult Dosage 2017-10-10 Completed Unive rsity of 00:00:00 [place] [facility] HEP B, Adult Dosage 2017-09-05 Completed Unive rsity of 00:00:00 [place] [facility] HEP B, Adult Dosage 2017-09-05 Completed Unive rsity of 00:00:00 [place] [facility] HEP B, Adult Dosage 2017-09-05 Completed Unive rsity of 00:00:00 [place] [facility] HEP B, Adult Dosage 2017-09-05 Completed Unive rsity of 00:00:00 [place] [facility] HEP B, Adult Dosage 2017-09-05 Completed Unive rsity of 00:00:00 [place] [facility] HEP B, Adult Dosage 2017-09-05 Completed Unive rsity of 00:00:00 [place] [facility] HEP B, Adult Dosage 2017-09-05 Completed Unive rsity of 00:00:00 [place] [facility] HEP B, Adult Dosage 2017-09-05 Completed Unive rsity of 00:00:00 [place] [facility] HEP B, Adult Dosage 2017-09-05 Completed Unive rsity of 00:00:00 [place] [facility] HEP B, Adult Dosage 2017-09-05 Completed Unive rsity of 00:00:00 [place] [facility] HEP B, Adult Dosage 2017-09-05 Completed Unive rsity of 00:00:00 [place] [facility] HEP B, Adult Dosage 2017-09-05 Completed Unive rsity of 00:00:00 [facility] HEP B, Adult Dosage 2017-09-05 Completed Unive rsity of 00:00:00 [facility] Pneumococcal 13 2015-02-19 Completed Universit [...] [place] [facility] (Prevnar 13) Branch Pneumococcal 2011-02-19 [...] Time Observation Value Comments Source Systolic blood 2022-03-16 14:28:00 128 mm[Hg] Univer sity of pressure [facility] Diastolic blood 2022-03-16 14:28:00 70 mm[Hg] Unive rsity of pressure [facility] Heart rate 2022-03-16 14:28:00 93 /min Universi ty of [facility] Body temperature 2022-03-16 14:28:00 35.67 Lizz Univ ersity of [facility] Respiratory rate 2022-03-16 14:28:00 17 /min Univ ersity of [facility] Body weight 2022-03-16 14:28:00 81.058 kg Universi ty of [facility] BMI 2022-03-16 14:28:00 34.90 kg/m2 Universi ty of [facility] Oxygen saturation in 2022-03-16 14:28:00 98 /min University of Arterial blood by [place] [employer] sandra Pulse oximetry Branch Systolic blood 2022-03-14 19:37:00 138 mm[Hg] Univer sity of pressure [facility] Diastolic blood 2022-03-14 19:37:00 87 mm[Hg] Unive rsity of pressure [facility] Heart rate 2022-03-14 19:37:00 94 /min Universi ty of [facility] Respiratory rate 2022-03-14 19:37:00 20 /min Univ ersity of [facility] Body height 2022-03-14 19:37:00 152.4 cm Universi ty of [facility] Body weight 2022-03-14 19:37:00 80.74 kg Universi ty [facility] [place] [facility] BMI 2022-03-14 19:37:00 34.76 kg/m2 Universi ty of [facility] Oxygen saturation in 2022-03-14 19:37:00 99 /min University of Arterial blood by [employer] sandra Pulse oximetry Branch Systolic blood 2022-02-28 14:57:00 130 mm[Hg] Univer sity of pressure [facility] Diastolic blood 2022-02-28 14:57:00 83 mm[Hg] Unive rsity of pressure [facility] Heart rate 2022-02-28 14:57:00 117 /min Universi ty of [facility] Respiratory rate 2022-02-28 14:57:00 20 /min Univ ersity of [facility] Body height 2022-02-28 14:57:00 152.4 cm Universi ty of [facility] Body weight 2022-02-28 14:57:00 80.377 kg Universi ty [facility] [place] [facility] BMI 2022-02-28 14:57:00 34.61 kg/m2 Universi ty of [facility] Oxygen saturation in 2022-02-28 14:57:00 99 /min University of Arterial blood by [facility] Pulse oximetry Branch Systolic blood 2022-02-19 17:58:00 140 mm[Hg] Univer sity of pressure [facility] Diastolic blood 2022-02-19 17:58:00 95 mm[Hg] Unive rsity of pressure [facility] Heart rate 2022-02-19 17:58:00 115 /min Universi ty of [facility] Body temperature 2022-02-19 13:46:00 36.78 Lizz Univ ersity of [facility] Respiratory rate 2022-02-19 13:46:00 18 /min Univ ersity of [facility] Oxygen saturation in 2022-02-19 13:46:00 94 /min University of Arterial blood by [facility] Pulse oximetry Branch Body weight 2022-02-18 10:44:00 83.462 kg Universi ty of [facility] BMI 2022-02-18 10:44:00 35.94 kg/m2 [facility]i ty [facility] [place] [facility] Systolic blood 2022-02-16 16:07:00 116 mm[Hg] Univer sity of pressure [facility] Diastolic blood 2022-02-16 16:07:00 71 mm[Hg] Unive rsity of pressure [facility] Heart rate 2022-02-16 16:07:00 85 /min Universi ty of [facility] Body temperature 2022-02-16 16:07:00 36.89 Lizz Univ ersity of [facility] Respiratory rate 2022-02-16 16:07:00 17 /min Univ ersity of [facility] Body weight 2022-02-16 16:07:00 84.823 kg Universi ty of [facility] BMI 2022-02-16 16:07:00 36.52 kg/m2 Universi ty of [facility] Oxygen saturation in 2022-02-16 16:07:00 96 /min [facility] Arterial blood by [facility] Pulse oximetry Branch Systolic blood 2021-10-05 15:13:00 152 mm[Hg] Univer sitkelsie [facility] Diastolic blood 2021-10-05 15:13:00 77 mm[Hg] Unive [facility] Body height 2021-10-05 15:12:00 152.4 cm [facility] Body weight 2021-10-05 15:12:00 88.315 kg [facility] BMI 2021-10-05 15:12:00 38.02 kg/m2 [facility] Procedures Procedure Date / Time Performing Clinician Source Performed FLU 2022-03-16 14:43:42 Kia [facility] VACC(),65+YR,0.5 Medica l Branch ML,IM,ADJUVANTED,QUAD(FLU AD) POCT GLUCOSE (AUTOMATED) 2022-02-19 17:59:00 Brii Samson [facility] XR CHEST 2 VW 2022-02-19 16:23:57 Sriram Heath [facility] POCT GLUCOSE (AUTOMATED) 2022-02-19 13:45:00 Brii Samson [facility] MAGNESIUM 2022-02-19 12:23:00 Rocael Vaughan [facility] BASIC METABOLIC PANEL 2022-02-19 12:23:00 Rocael Vaughan [facility] (NA, K, CL, CO2, GLUCOSE, Medica l Branch BUN, CREATININE, CA) CBC WITH DIFF 2022-02-19 12:23:00 Rocael Vaughan [facility] N-TERMINAL PRO-BNP 2022-02-19 12:23:00 Rocael Vaughan [facility] POCT GLUCOSE (AUTOMATED) 2022-02-19 07:07:00 Brii Samson [facility] POCT GLUCOSE (AUTOMATED) 2022-02-19 06:10:00 Brii Sasmon [facility] POCT GLUCOSE (AUTOMATED) 2022-02-19 03:34:00 Brii Samson [facility] POCT GLUCOSE (AUTOMATED) 2022-02-18 23:14:00 Brii Samson [facility] POCT GLUCOSE (AUTOMATED) 2022-02-18 17:29:00 Brii Samson [facility] POCT GLUCOSE (AUTOMATED) 2022-02-18 13:40:00 Brii Samson [facility] BASIC METABOLIC PANEL 2022-02-18 10:53:00 [facility] ([facility], K, CL, CO2, GLUCOSE, Medica l Branch BUN, CREATININE, CA) LIPID PANEL ([id number])(TOTAL 2022-02-18 10:53:00 Alexus [facility] CHOLESTEROL, [facility] TRIGLYCERIDES, HDL) CBC WITH DIFF 2022-02-18 10:53:00 Alexus [facility] N-TERMINAL PRO-BNP 2022-02-18 10:53:00 Rocael Vaughan [facility] POCT GLUCOSE (AUTOMATED) 2022-02-18 02:34:00 [facility] 2022-02-17 22:16:00 [facility]) 2022-02-17 17:45:00 [facility] ([facility]ATED) 2022-02-17 14:01:00 [facility] TRANST[facility]ACIC ECHO (TTE) 2022-02-17 13:56:00 Chapin [facility] COMPLETE W/ CONTRAST Medical Bra nch MAGNESIUM 2022-02-17 09:47:00 Chapin Brii [facility] BASIC METABOLIC PANEL 2022-02-17 09:47:00 Chapin [facility] (NA, K, CL, CO2, GLUCOSE, Medica l Branch BUN, CREATININE, CA) N-TERMINAL PRO-BNP 2022-02-17 09:47:00 Chapin Brii [facility] POCT GLUCOSE (AUTOMATED) 2022-02-17 03:55:00 Brii Samson [facility] POCT GLUCOSE (AUTOMATED) 2022-02-17 03:16:00 Brii Samson [facility] URINALYSIS 2022-02-16 18:07:00 Bird [facility] XR CHEST 1 VW 2022-02-16 17:06:49 Bird [facility] LIPASE 2022-02-16 16:59:00 Bird [facility] TROPONIN I 2022-02-16 16:59:00 Bird [facility] HEPATIC FUNCTION PANEL 2022-02-16 16:59:00 Bird [facility] ([id number]) (ALB,T.PRO,BILI [facility] T,BU/BC,ALT,AST,ALK PHOS) BASIC METABOLIC PANEL 2022-02-16 16:59:00 Bird [facility] (NA, K, CL, CO2, GLUCOSE, Medica l Branch BUN, CREATININE, CA) CBC WITH DIFF 2022-02-16 16:59:00 Bird [facility] GLYCOSYLATED HEMOGLOBIN 2022-02-16 16:59:00 Chapin [facility] (A1C) [facility] N-TERMINAL PRO-BNP 2022-02-16 16:59:00 Bird [facility] COVID-19 (ID NOW RAPID 2022-02-16 16:59:00 Bird [facility] TESTING) Medical Branch LAB ONLY COVID 2022-02-16 16:59:00 Bird [facility] INTERPRETATION [facility] HB ECG ROUTINE & RHYTHM 2022-02-16 16:52:36 Bird [facility] Branch CONSENT/REFUSAL FOR 2022-02-16 16:40:37 Doctor Unassigned, [facility] DIAGNOSIS AND TREATMENT [place] [facility] POCT HEMOGLOBIN A1C TEST 2021-10-05 15:15:00 [facility] Start End Encounter Admission Attending Care Care Encounter Source Date/Time Date/Time Type Type Clinicians Facility Department ID 2020-12-17 Emergency [facility] [id number] Univers 21:39:43 ity of [facility] 2020-12-17 Inpatient [facility] [id number] Univers 18:26:55 alvino BARAKAT o maine FAM [facility] 2020-12-17 Emergency [facility] [id number] Univers 16:06:19 ity of [facility] 2022-06-15 2022-06-15 Outpatient Moustapha ADAM [facility] [id number] Univers 09:00:00 09:00:00 SILVERIO ity of [facility] 2022-04-27 2022-04-27 Outpatient [facility] [id number] Univers 10:20:00 10:20:00 SRIRAM de oliveira o f [facility] 2022-03-27 2022-03-27 [facility] [id number] Univers 00:00:00 00:00:00 Sriram [place] [id number] [id number] [id number] Tn dical NAL 059 [facility] 2022-03-22 2022-03-22 Key Carrier 2, Adc Lab [facility] [id number] Univers 08:00:00 08:15:00 Visit Silverio Adam [id number] ity of [facility] [id number] [id number] Tn dical NAL 353 [facility] 2022-03-22 2022-03-22 Outpatient Moustapha ADAM [facility] [id number] Univers 08:00:00 08:00:00 SILVERIO ity of [facility] 2022-03-16 2022-03-16 Outpatient Moustapha ADAM [facility] [id number] Univers 08:40:00 09:58:33 SILVERIO ity [facility] 2022-03-16 2022-03-16 Office [facility] [id number] Univers 08:40:00 09:00:00 Visit Silverio PALOMO [id number] i ty [facility] [id number] [id number] Tn dical NAL 9 [facility] 2022-03-14 2022-03-14 Office [facility] [id number] Univers 13:40:00 14:00:00 Visit Sriram [place] [id number] [facility]y [facility] [id number] [id number] Tn dicwa NAL [address] [place] [address] 2022-03-14 2022-03-14 Outpatient R [facility] [id number] Univers 13:40:00 13:40:00 SRIRAM de oliveira o [facility] 2022-03-09 2022-03-09 Outpatient [facility] [id number] Univers 09:59:09 23:59:00 SILVERIO ity [facility] 2022-02-28 2022-02-28 Outpatient R [facility] [id number] Univers 09:00:00 09:16:53 SRIRAM de oliveira o [facility] 2022-02-28 2022-02-28 Office [facility] [id number] Univers 09:00:00 09:16:53 Visit Sriram [place] [id number] ity [facility] [id number] [id number] Tn dical NAL 9 [facility] 2022-02-21 2022-02-21 Transition JONO Galvan [id number] Univers 00:00:00 00:00:00 of Care Nara MG [id number] [id number] [id number] [address] 2022-02-16 2022-02-19 Inpatient X CHAPIN [facility] SAMI [id number] Univers 10:48:00 16:07:00 [facility] 2022-02-16 2022-02-19 Hospital Marina Pang [facility] [id number] Univers 10:48:00 16:07:00 Encounter Brii Samson [place] [id number] ity [facility] [id number] [facility] [id number] [address] 2022-02-16 2022-02-16 Eusebio Fang Perez [facility] [id number] Univers 09:45:00 10:05:00 Care Unknown, Attending [facility] [id number] ity [facility] [id number] Bernabe as HUMPHREY?BLEA [id number] [address] MEDICAL OFFICE BUILDING 2022-02-16 2022-02-16 Outpatient R CASSI [facility] [id number] Univers 09:45:00 09:45:[address] [facility] 2022-01-31 2022-01-31 Outpatient R KUMAR [facility] [id number] Univers 14:20:00 14:20:00 SRIRAM diamond [facility] 2022-01-31 2022-01-31 Outpatient R KUMAR [facility] [id number] Univers 14:20:00 14:20:00 SRIRAM de oliveira o [facility] 2021-12-02 2021-12-02 Outpatient R KIA [facility] [id number] Univers 10:20:00 10:20:00 SILVERIO itkelsie [facility] 2021-11-25 2021-11-25 Outpatient R KIA [facility] [id number] Univers 10:20:00 10:20:00 SILVERIO itkelsie [facility] 2021-11-25 2021-11-25 Outpatient R KIA [facility] [id number] Univers 10:20:00 10:20:00 SILVERIO itkelsie [facility] 2021-10-05 2021-10-05 Outpatient R AMITA GOMEZ [facility] [id number] Univers 10:30:00 11:22:11 AMITA GOMEZ ity [facility] 2021-10-05 2021-10-05 Office Amita Gomez [facility] [id number] Univers 10:30:00 11:22:11 Visit HEALTH [id number] it [facility] [id number] Bernbae as HUMPHREY?BLEA [id number] [address] OFFICE [facility] 2021-09-21 2021-09-21 Telephone [facility] [id number] Univers 00:00:00 00:00:00 Wentong [facility] [id number] it y of [place] [id number] Bernabe as HUMPHREY?BLEA [id number] [address] OFFICE [facility] 2021-08-19 2021-08-19 Outpatient R KIA [facility] [id number] Univers 11:20:00 11:20:[address] [facility] 2021-08-16 2021-08-16 Outpatient R TIN [facility] [id number] Univers 13:00:00 13:00:00 [facility] 2021-08-01 2021-08-01 Office [facility] [id number] Univers 13:40:00 14:02:37 Visit [facility] [id number] ity [place] [facility] [place] [id number] Tn dical NAL 059 [facility] 2021-08-01 2021-08-01 Outpatient [facility] [id number] Univers 13:40:00 14:02:37 DIMITRIZECHARIAH alvino o [facility] 2021-08-01 2021-08-01 Outpatient R KUMAR [facility] [id number] Univers 13:40:00 13:40:00 SRIRAM de oliveira o [facility] 2021-08-01 2021-08-01 Outpatient [facility] [id number] Univers 13:40:00 13:40:00 SRIRAM ity o f [facility] 2021-08-01 2021-08-01 Outpatient R KUMAR, [facility] [id number] Univers 13:40:00 13:40:00 QIACHAIM ity o f [facility] 2021-08-01 2021-08-01 Outpatient R KUMAR, [facility] [id number] Univers 13:40:00 13:40:00 SRIRAM ity o [facility] 2021-07-22 2021-07-22 Refill Kumar, [facility] 1.2.840.114 [id number] Univers 00:00:00 00:00:00 [facility] 350.1.13.10 ity [facility] [place] [id number] [address] 2021-06-24 2021-06-24 Outpatient R KIA, [facility] [id number] Univers 10:00:00 10:46:29 [facility] 2021-06-24 2021-06-24 Office [facility] 1.2.840.114 [id number] Univers 10:00:00 10:20:00 [facility] 350.1.13.10 i ty [facility] [place] [id number] [address] 2021-06-24 2021-06-24 Outpatient R KIA, [facility] [id number] Univers 10:00:00 10:00:00 SILVERIO ity [facility] 2021-06-24 2021-06-24 Outpatient R SEWANI, [facility] [id number] Univers 10:00:00 10:00:00 SILVERIO ity [facility] 2021-06-10 2021-06-10 Out[facility] [id number] Univers 10:46:49 23:59:00 SILVERIO ity [facility] 2021-05-23 2021-05-23 Outpatient R KUMAR, [facility] [id number] Univers 15:00:00 15:00:00 QIACHAIM ity o [facility] 2021-05-04 2021-05-04 Outpatient R KUMAR, [facility] [id number] Univers 08:00:00 23:59:00 SRIRAM grove [facility] 2021-05-04 2021-05-04 Outpatient R KUMAR, [facility] [id number] Univers 08:00:00 08:00:00 SRIRAM grove [facility] 2021-04-28 2021-04-28 Outpatient R BROOKS [facility] [id number] Univers 13:00:00 14:03:10 DIANN de oliveira [facility] 2021-04-28 2021-04-28 Office [facility] 1.2.571.881 [id number] Univers 13:00:00 14:03:10 Visit Diann [place] 350.1.13.10 i ty [facility] [place] [facility] [phone] Tn dical NAL 188 [facility] 2021-04-22 2021-04-22 Outpatient MITCHELL TORRES [facility] [id number] Univers 15:40:00 15:40:[address] [facility] 2021-04-22 2021-04-22 Outpatient MITCHELL TORRES [facility] [id number] Univers 15:40:00 15:40:[address] [facility] 2021-04-22 2021-04-22 Outpatient MITCHELL TORRES [facility] [id number] Univers 15:40:00 15:40:[address] [facility] 2021-04-18 2021-04-19 Emergency X VALERIE, [facility] ERT [id number] Univers 22:42:00 02:27:[address] [facility] 2021-04-18 2021-04-19 Emergency Valerie, [facility] 1.2.840.114 [id number] Univers 22:42:00 02:27:00 Celia [place] 350.1.13.10 ity [facility] [place] [id number] [address] 2021-04-18 2021-04-19 Emergency X VALERIE, [facility] ERT [id number] Univers 22:42:00 02:27:00 FOLUSHO ity of [facility] 2021-04-18 2021-04-18 Orders Doctor MILLAN 1.2.840.114 [id number] Univers 00:00:00 00:00:00 Only Unassigned, CARLOS 350.1.13.10 ity of [place] [facility] 4.2.7.2.686 Bernabe as [id number] [facility] [address] 2021-04-15 2021-04-15 Hospital [facility] 1.2.500.921 [id number] Univers 12:42:22 23:59:00 Encounter Wondiful Lauryn [place] 350.1.13.10 ity of [place] [id number] [facility] [address] 2021-04-15 2021-04-15 Outpatient [facility] [id number] Univers 10:00:00 10:33:44 SRIRAM de oliveira o f [facility] 2021-04-15 2021-04-15 Office [facility] 1.2.840.114 [id number] Univers 10:00:00 10:33:44 Visit Sriram [place] 350.1.13.10 ity [facility] [place] [facility] [id number] Tn dical [facility] 059 [facility] 2021-04-15 2021-04-15 Outpatient [facility] [id number] Univers 10:00:00 10:33:44 SRIRAM de oliveira o f [facility] 2021-04-15 2021-04-15 Outpatient R [facility] [id number] Univers 00:00:00 00:00:00 WONDIFUL alvino o f [facility] 2021-04-15 2021-04-15 Orders Doctor MILLAN 1.2.840.114 [id number] Univers 00:00:00 00:00:00 Only Unassigned, CARLOS 350.1.13.10 ity of [place] [facility] 4.2.7.2.686 Bernabe as [id number] [facility] [address] 2021-04-13 2021-04-13 Outpatient R TIN [facility] [id number] Univers 10:00:00 11:12:56 [facility] 2021-04-13 2021-04-13 Office [facility] 1.2.840.114 [id number] Univers 10:00:00 11:12:56 Visit [facility] 350.1.13.10 it y [facility] 4.2.7.2.686 Bernabe as HUMPHREY?BLEA [phone] Tn dical KNEY [address] MEDICAL OFFICE BUILDING 2021-04-13 2021-04-13 Outpatient R TIN [facility] [id number] Univers 10:00:00 11:12:56 [facility] 2021-04-13 2021-04-13 Outpatient R TIN [facility] [id number] Univers 10:00:00 10:00:00 [facility] 2021-04-13 2021-04-13 Outpatient R TIN [facility] [id number] Univers 10:00:00 10:00:00 [facility] 2021-04-13 2021-04-13 Outpatient R TIN [facility] [id number] Univers 10:00:00 10:00:00 [facility] 2021-04-12 2021-04-12 Nurse YANA Sanders 1.2.809.864 [id number] Univers 00:00:00 00:00:00 Triage Luis Alberto CARLOS 350.1.13.10 it y of [facility] 4.2.7.2.686 Bernabe as [id number] [facility] [address] 2021-04-07 2021-04-07 Telephone Kumar PAJENNI 1.2.577.773 [id number] Univers 00:00:00 00:00:00 Sriram [place] 350.1.13.10 ity [facility] [place] [phone] Tn dical NAL 059 [facility] 2021-04-01 2021-04-01 Outpatient R KIA [facility] [id number] Univers 10:00:00 10:40:52 SILVERIO ity of [facility] 2021-04-01 2021-04-01 Office [facility] 1.2.840.114 [id number] Univers 10:00:00 10:40:52 Visit Silverio OTWELL 350.1.13.10 i ty of [place].2.[place] [id number] Tn sherif [facility] 059 [facility] 2021-03-30 2021-03-30 Telephone [facility] 1.2.840.114 [id number] Univers 00:00:00 00:00:00 [facility] 350.1.13.10 ity of [place] 4.2.7.2.686 Bernabe as HUMPHREY?BLEA [id number] Tn sherif STARKS [address] [place] [address] OFFICE [facility] 2021-03-30 2021-03-30 Telephone [facility] 1.2.840.114 [id number] Univers 00:00:00 00:00:00 [facility] 350.1.13.10 ity of [place] 4.2.7.2.686 Bernabe as HUMPHREY?BLEA [id number] [address] OFFICE [facility] 2021-03-29 2021-03-29 Outpatient MITCHELL TORRES [facility] [id number] Univers 08:00:00 09:38:08 MITCHELL GARCIAkelsie [facility] 2021-03-29 2021-03-29 Outpatient MITCHELL TORRES [facility] [id number] Univers 08:00:00 09:38:08 MITCHELL GARCIA [facility] 2021-03-29 2021-03-29 Outpatient MITCHELL TORRES [facility] [id number] Univers 08:00:00 08:00:00 MITCHELL GARCIA kelsie [facility] 2021-03-29 2021-03-29 Orders Doctor MILLAN 1.2.840.114 [id number] Univers 00:00:00 00:00:00 Only Unassigned, CARLOS 350.1.13.10 [facility] 4.2.7.2.686 Bernabe as [id number] Medi sandra [address] 2021-03-23 2021-03-23 Outpatient [facility] [id number] Univers 15:40:00 16:06:08 SRIRAM de oliveira o f [facility] 2021-03-23 2021-03-23 Office [facility] 1.2.840.114 [id number] Univers 15:40:00 16:06:08 Visit Sriram [place] 350.1.13.10 ity [facility] [place] [id number] Tn dical NAL 059 [facility] 2021-03-23 2021-03-23 Outpatient [facility] [id number] Univers 16:00:00 16:00:00 SRIRAM de oliveira o maine [facility] 2021-03-22 2021-03-22 Telephone [facility] 1.2.840.114 [id number] Univers 00:00:00 00:00:00 Diann [place] 350.1.13.10 i ty [facility] [place] [id number] Tn dical NAL 188 [facility] 2021-03-21 2021-03-21 [place], Luís Lab Main [facility] 1.2.8 40.114 [id number] Univers 14:45:00 15:00:00 Visit Ortega Dorsey 350.1 .13.10 ity [facility] 4[place].2.[place] [id number] Tn dical NAL 353 [facility] 2021-03-21 2021-03-21 Outpatient R WILLIAN [facility] [id number] Univers 14:45:00 14:45:00 CHEN martykelsie [facility] 2021-03-21 2021-03-21 Outpatient R [facility] [id number] Univers 14:45:00 14:45:00 [facility] [place] 2021-03-21 2021-03-21 Orders Doctor MILLAN 1.2.840.114 [id number] Univers 00:00:00 00:00:00 Only Unassigned, CARLOS 350.1.13.10 ity of [place] [facility] 4.2.7.2.686 Bernabe as [id number] [facility] [address] 2021-03-21 2021-03-21 Telephone GLENNA Dorsey 1.2.840.114 [id number] Univers 00:00:00 00:00:00 [facility] Kelsie [facility] 350.1.13.10 i ty of [facility] [place]2.[place].2.[place] [id number] [facility] [address] 2021-03-20 2021-03-20 Nurse YANA Bautista 1.2.840.114 [id number] Univers 00:00:00 00:00:00 Triage Cielo RENEE 350.1.13.10 it y of [facility] 4.2.7.2.686 Bernabe as [id number] [facility] [address] 2021-03-18 2021-03-18 Emergency [facility] 1.2.840.114 [id number] Univers 17:02:00 22:45:00 Ananya [place] 350.1.13.10 ity of [place].2.[place] [id number] [facility] [address] 2021-03-18 2021-03-18 Emergency X [facility] ERT [id number] Univers 17:02:00 17:02:00 ANANYA de oliveira [facility] 2021-03-18 2021-03-18 Emergency X [facility] ERT [id number] Univers 16:34:00 16:34:00 alvino [facility] 2021-03-18 2021-03-18 Outpatient R EPI [facility] [id number] Univers 15:00:00 16:15:48 JENNIE de oliveira [facility] 2021-03-18 2021-03-18 Office Epi [facility] 1.2.840.114 [id number] Univers 15:00:00 16:15:48 Visit [facility] 350.1.13.10 it y [facility] 4.2.7.2.686 Bernabe as HUMPHREY?BLEA [phone] Tn dical [address] MEDICAL OFFICE BUILDING 2021-03-18 2021-03-18 Outpatient R EPI [facility] ERT [id number] Univers 15:00:00 16:15:48 JENNIE de oliveira of [facility] 2021-03-18 2021-03-18 Outpatient R EPI [facility] [id number] Univers 15:00:00 16:15:48 JENNIE de oliveira [facility] 2021-03-18 2021-03-18 Transition JONO Galvan 1.2.840.114 [id number] Univers 00:00:00 00:00:00 of Care Nara ROCHAY 350.1.13.10 it y of [place].2.[place] [id number] [facility] [address] 2021-03-12 2021-03-17 Inpatient X [facility] [id number] Univers 12:11:00 15:43:00 [facility] 2021-03-12 2021-03-17 Hospital Damien Hugo 1.2.840 .114 [id number] Univers 12:11:00 15:43:00 Encounter Soni Hunter 350.1.13.10 ity of [facility] 4.2.7.2.686 [place] [id number] [facility] [address] 2021-03-12 2021-03-17 Inpatient X [facility] [id number] Univers 12:11:00 15:43:00 [facility] 2021-03-17 2021-03-17 Nurse Esperanza Cronin 1.2.840.114 [id number] Univers 00:00:00 00:00:00 Triage CARLOS 350.1.13.10 it y of [facility] 4.2.7.2.686 Bernabe as [id number] [facility] [address] 2021-03-16 2021-03-16 GLENNA Barcenas 1.2.840.114 [id number] Univers 00:00:00 00:00:00 [facility] 350.1.13.10 ity of [facility] [place]2.7.2.[place] [id number] [facility] [address] 2021-03-16 2021-03-16 Case GLENNA Dorsey 1.2.840.114 [id number] Univers 00:00:00 00:00:00 Management [facility] 350.1.13.10 ity of [facility] 4.2.7.2.[place] [id number] [facility] [address] 2021-03-11 2021-03-11 Transition JONO Galvan 1.2.840.114 [id number] Univers 00:00:00 00:00:00 of Care Nara MG 350.1.13.10 it y of [place].2.[place] [id number] [facility] [address] 2021-03-11 2021-03-11 Telephone Kumar [facility] 1.2.921.943 [id number] Univers 00:00:00 00:00:00 Sriram [place] 350.1.13.10 ity [facility] 4.2.7.2.[place] [id number] [facility] 059 [facility] 2021-03-07 2021-03-10 Outpatient X ANUJ GONZALES [facility] SAMI [id number] Univers 08:28:00 14:20:00 ity of [facility] 2021-03-07 2021-03-10 Emergency Aiden Hudson SETHE 1.2.840. 114 [id number] Univers 08:28:00 14:20:00 Anuj Gonzales 350.1.13.1 0 ity of [facility] 4.2.7.2.686 Bernabe as [id number] [facility] [address] 2021-03-07 2021-03-10 Outpatient X ANUJ GONZALES [facility] SAMI [id number] Univers 08:28:00 14:20:00 ity of [facility] 2021-03-09 2021-03-09 Surgery Misael Castro [facility] 1.2.840.114 [id number] Univers 09:36:00 10:16:00 David ABBASI 350.1.13.10 it y of [place] 4.2.7.2.686 Bernabe as BL [id number] [facility] [address] 2021-03-03 2021-03-03 Outpatient R HEMANTH [facility] [id number] Univers 14:00:00 14:44:[address] [facility] 2021-03-03 2021-03-03 Office [facility] 1.2.840.114 [id number] Univers 14:00:00 14:44:31 Visit Shantel Lauryn [place] 350.1.13.10 ity [facility] 4.2.7.2.[place]ESS[place] [id number] Tn dic[address] 2021-03-03 2021-03-03 Outpatient R BROOKS [facility] [id number] Univers 14:00:00 14:00:[address] [facility] 2021-02-08 2021-02-08 Office Jameson Sabina [facility] 1.2.840.114 [id number] Univers 15:30:00 16:44:10 Visit KHLOE 350.1.13.10 it y of [place] [id number] [facility] [address] 2021-02-08 2021-02-08 Outpatient R JAMESON SABINA [facility] [id number] Univers 15:30:00 16:44:10 ity [facility] 2021-02-08 2021-02-08 Outpatient R SABINA BARBA [facility] [id number] Univers 15:30:00 16:44:10 ity [facility] 2021-02-08 2021-02-08 Outpatient R JAMESON SABINA [facility] [id number] Univers 15:30:00 15:30[facility] 2021-02-08 2021-02-08 Outpatient R SABINA BARBA [facility] [id number] Univers 15:30:00 15:30:00 ity [facility] 2021-02-03 2021-02-03 Case [facility] 1.2.840.114 [id number] Univers 00:00:00 00:00:00 Management Wondiful A HEALTH 350.1.13.10 ity of [place] 4.2.7.2.686 Bernabe as HUMPHREY?BLEA [phone] Tn sherif [place] [address] MEDICAL OFFICE BUILDING 2021-02-01 2021-02-01 Office [facility] 1.2.840.114 [id number] Univers 15:30:00 16:58:42 Visit Eircka SALINAS 350.1.13.10 it y of [place] 4.2.7.2.686 Bernabe as HUMPHREY?BLEA [id number] Tn sherif [place] [address] [facility] OFFICE [facility] 2021-02-01 2021-02-01 Outpatient R MEKA [facility] [id number] Univers 15:30:00 16:58:42 ERICKA de oliveira [facility] 2021-02-01 2021-02-01 Outpatient R MEKA [facility] [id number] Univers 16:30:00 16:30:00 ERICKA kelsie [facility] 2021-02-01 2021-02-01 [facility], [facility] 1.2.840.1 14 [id number] Univers 16:02:42 16:17:42 Visit Ericka Ackerman 350.1.13.10 ity of [place] 4.2.7.2.686 Bernabe as HUMPHREY?BLEA [id number] Tn sherif [place] [address] [facility] OFFICE [facility] 2021-02-01 2021-02-01 Outpatient R MEKA [facility] [id number] Univers 15:30:00 15:30:00 ERICKA de oliveira [facility] 2021-01-31 2021-01-31 Outpatient R KUMAR [facility] [id number] Univers 13:40:00 13:44:29 GUILLECHAIM alvino o [facility] 2021-01-31 2021-01-31 Outpatient R KUMAR [facility] [id number] Univers 13:40:00 13:44:29 DIMITRIZECHARIAH alvino o [facility] 2021-01-31 2021-01-31 Office [facility] 1.2.840.114 [id number] Univers 13:18:52 13:44:29 Visit [facility]ir[facility] 350.1.13.10 ity of [facility] 4.2.7.2.[place] PROFESSIO [id number] Tn dical NAL 059 [facility] 2021-01-31 2021-01-31 Outpatient R KUMAR [facility] [id number] Univers 13:40:00 13:40:00 SRIRAM ity o f [facility] 2021-01-31 2021-01-31 [facility], Ang - [facility] 1.2.840.1 14 [id number] Univers 10:03:00 10:18:00 Visit Sriram Heath HEALTH 350.1.13.10 ity of [place] 4.2.7.2.686 Bernabe as HUMPHREY?BLEA [id number] Tn dicelinor STARK[place] [address] MEDICAL OFFICE BUILDING 2021-01-31 2021-01-31 Office [facility] 1.2.840.114 [id number] Univers 09:22:40 10:03:18 Visit Wondiful A HEALTH 350.1.13.10 ity of [place] 4.2.7.2.686 Bernabe as HUMPRHEY?BLEA [id number] Tn dicelinor [place] [address] MEDICAL OFFICE [facility] 2021-01-31 2021-01-31 Outpatient R [facility] [id number] Univers 09:30:00 09:30:00 WONDIFUL ity o f [facility] 2021-01-11 2021-01-11 Case [facility] 1.2.840.114 [id number] Univers 00:00:00 00:00:00 Management Wondiful A HEALTH 350.1.13.10 ity [facility] 4.2.7.2.686 Bernabe as HUMPHREY?BLEA [id number] Tn dical AMALIA [address] MEDICAL OFFICE BUILDING 2021-01-07 2021-01-07 Outpatient R MAJOR [facility] [id number] Univers 16:30:00 23:59:00 WONDIFUL ity o f [facility] 2021-01-07 2021-01-07 Hospital [facility] 1.2.104.523 [id number] Univers 16:30:00 23:59:00 Encounter Wondiful A HEALTH 350.1.13.10 ity of [place] 4.2.7.2.686 Bernabe as HUMPHREY?BLEA [id number] Tn sherif [place] [address] MEDICAL OFFICE [facility] 2021-01-07 2021-01-07 [facility], Ang - Db [facility] 1.2.840.1 14 [id number] Univers 16:36:52 16:51:52 Visit Clare Gonsalves HEALTH 350.1.13.1 0 ity of [place] 4.2.7.2.686 Bernabe as HUMPHREY?BLEA [id number] Me sherif [place] [address] [facility] OFFICE [facility] 2021-01-07 2021-01-07 Outpatient R [facility] [id number] Univers 16:15:00 16:37:00 WONDIFUL ity o f [facility] 2021-01-07 2021-01-07 Office [facility] 1.2.840.114 [id number] Univers 15:34:25 16:37:00 Visit Wondipastor A HEALTH 350.1.13.10 ity of [place] 4.2.7.2.686 Bernabe as HUMPHREY?BLEA [id number] Tn sherif [place] [address] [facility] OFFICE [facility] 2021-01-05 2021-01-05 Telephone [facility] 1.2.840.114 [id number] Univers 00:00:00 00:00:00 Wondiful A HEALTH 350.1.13.10 ity of [place] 4.2.7.2.686 Bernabe as HUMPHREY?BLEA [id number] Tn sherif [place] [address] MEDICAL OFFICE [facility] 2020-12-28 2020-12-28 Outpatient R KIA [facility] [id number] Univers 14:00:00 14:00:00 SILVERIO ity of [facility] 2020-12-27 2020-12-27 Outpatient R MAJOR [facility] [id number] Univers 13:14:51 23:59:00 WONDIFUL ity o f [facility] 2020-12-27 2020-12-27 [facility] [id number] Univers 13:00:00 23:59:00 Encounter Wondiful A [place] [id number] ity [id number] [phone] [address] 2020-12-27 2020-12-27 Outpatient R MAJOR [facility] [id number] Univers 00:00:00 00:00:00 WONDIFUL ity o f [facility] 2020-12-13 2020-12-13 [facility]phone [facility] [id number] Univers 00:00:00 00:00:00 Wondiful A Health [id number] ity of [place] [id number] Bernabe as Humphrey?Blea [phone] [address] Office [facility] 2020-12-13 2020-12-13 Telephone Major [facility] [id number] Univers 00:00:00 00:00:00 Wondiful A Health [id number] ity of [place] [id number] Bernabe as Humphrey?Blea [phone] [facility] evelyn 044 [facility] Office [facility] 2020-12-06 2020-12-06 Telephone Major [facility] [id number] Univers 00:00:00 00:00:00 Wondiful A Health [id number] ity of [place] [id number] Bernabe as Humphrey?Blea [phone] [facility] evelyn 044 [facility] Office [facility] 2020-12-03 2020-12-03 [facility], Ang - Db [facility] [id number] Univers 16:48:38 17:03:11 Visit Clare Gonsalves [facility] Health 350.1.13.1 0 ity of [place] [id number] Bernabe as Humphrey?Blea [phone] [facility] evelyn [address] [facility] 2020-12-03 2020-12-03 [facility], Ang - Db [facility] [id number] Univers 16:48:38 17:03:11 Visit Clare Gonsalves Health 350.1.13.1 0 ity of [place] [id number] Bernabe as Humphrey?Blea [phone] [facility] 353 [facility] Office [facility] 2020-12-03 2020-12-03 [facility] Ang - Db [facility] [facility] 1.2.840.1 14 [id number] Univers 16:48:38 17:03:11 Visit Clare Gonsalves HEALTH 350.1.13.1 0 ity of [place] 4.2.7.2.686 Bernabe as HUMPHREY?BLEA [phone] [address] OFFICE [facility] 2020-12-03 2020-12-03 Office Major [facility] 1.2.840.114 [id number] Univers 15:32:14 16:49:03 Visit Clare Combs Health 350.1.13.10 ity of [place] 4.2.7.2.686 Bernabe as Humphrey?Blea [phone] [facility] evelyn 044 [facility] Office [facility] 2020-12-03 2020-12-03 Outpatient R MAJOR [facility] [id number] Univers 15:45:00 15:45:00 WONDIFUL ity o f [facility] 2020-11-23 2020-11-23 Office [facility] 1.2.840.114 [id number] Univers 09:49:05 10:43:01 Visit Silverio [place] 350.1.13.10 i [place] [phone] Tn dicwa nal 059 [facility] 2020-11-23 2020-11-23 Outpatient R [facility] [id number] Univers 10:00:00 10:00:00 SILVERIO ity of [facility] 2020-11-15 2020-11-15 Refisra Heath [facility] 1.2.840.114 [id number] Univers 00:00:00 00:00:00 Sriram [place] 350.1.13.10 [place] of [place] [phone] [facility] 059 [facility] 2020-11-15 2020-11-15 Refisra Gonsalves PAJENNI 1.2.840.114 [id number] Univers 00:00:00 00:00:00 Wondiful A [place] 350.1.13.10 [place] of [place] [phone] [facility] 059 [facility] 2020-11-11 2020-11-11 Refill Major [facility] 1.2.840.114 [id number] Univers 00:00:00 00:00:00 Wondiful A Health 350.1.13.10 ity of [place] 4.2.7.2.686 Bernabe as Professio [phone] [address] One 2020-10-05 2020-10-05 Refisra Gonsalves [facility] 1.2.840.114 [id number] Univers 00:00:00 00:00:00 Wondiful A Health 350.1.13.10 ity of [place] 4.2.7.2.686 Bernabe as Professio [phone] [address] Office [facility] One 2020-10-04 2020-10-04 Orders Doctor YANA 1.2.840.114 [id number] Univers 00:00:00 00:00:00 Only Unassigned, CARLOS 350.1.13.10 ity of [place] [facility] 4.2.7.2.686 Bernabe as [phone] [address] 2020-09-24 2020-09-24 Refill Major PAJENNI 1.2.840.114 [id number] Univers 00:00:00 00:00:00 Wondiful A Health 350.1.13.10 ity of [place] 4.2.7.2.686 Bernabe as Professio [phone] [address] One 2020-09-09 2020-09-09 Refisra Heath PAJENNI 1.2.840.114 [id number] Univers 00:00:00 00:00:00 Qiangjun [place] 350.1.13.10 ity of [place].2.[place] [phone] [address] 2020-09-03 2020-09-03 [facility] 1.2.840.114 [id number] Univers 00:00:00 00:00:00 Wondiful A Health 350.1.13.10 ity of [place] 4.2.7.2.686 Bernabe as Professio [phone] [address] 2020-07-27 2020-07-27 Outpatient R KIA [facility] [id number] Univers 10:20:00 10:20:00 SILVERIO ity [facility] 2020-07-27 2020-07-27 Office [facility] 1.2.840.114 [id number] Univers 09:56:55 10:16:55 Visit Silverio [place] 350.1.13.10 i ty [place].2.[place] [phone] [address] 2020-07-13 2020-07-13 Orders Doctor YANA 1.2.840.114 [id number] Univers 00:00:00 00:00:00 Only Unassigned, CARLOS 350.1.13.10 ity of [place] [facility] 4.2.7.2.686 Bernabe as [phone] [address] 2020-07-08 2020-07-08 [facility] 1.2.840.114 [id number] Univers 00:00:00 00:00:00 Wondiful A Health 350.1.13.10 ity of [place] 4.2.7.2.686 Bernabe as Professio [phone] [address] 2020-06-29 2020-06-29 Outpatient R [facility] [id number] Univers 10:30:00 10:30:00 ity of [facility] 2020-06-29 2020-06-29 Outpatient R KIA [facility] [id number] Univers 10:30:00 10:30:00 SILVERIO ity of [facility] 2020-06-07 2020-06-07 Office Kumar, [facility] 1.2.840.114 [id number] Univers 13:02:14 13:29:23 Visit Sriram [place] 350.1.13.10 ity of [place].2.7.2.[place] [phone] Tn dicwa nal [address] 2020-06-07 2020-06-07 Outpatient R [facility] [id number] Univers 13:00:00 13:00:00 SRIRAM martykelsie diamond f [facility] 2020-06-02 2020-06-02 Outpatient R DEE, [facility] [id number] Univers 19:20:00 19:20:00 VIRIOLAMIDE grove [facility] 2020-06-02 2020-06-02 Laboratory Lab, [facility] Pob I [facility] 1.2. 840.114 [id number] Univers 18:38:28 18:58:28 Only [facility] 350.1.13.10 ity of [place] Viri Pal[place] 4.2.7.2.686 [facility] [place] [facility] [phone] Tn [facility]. [facility] [address] [place] Office [address] One 2020-06-02 2020-06-02 Letter Doctor MILLAN 1.2.840.114 [id number] Univers 00:00:00 00:00:00 (Out) Unassigned, CARLOS 350.1.13.10 ity of [place] [facility] 4.2.7.2.686 Bernabe as [phone] [address] 2020-06-02 2020-06-02 Letter Doctor MILLAN 1.2.840.114 [id number] Univers 00:00:00 00:00:00 (Out) Unassigned, CARLOS 350.1.13.10 ity of [place] [facility] 4.2.7.2.686 Bernabe as [phone] [address] 2020-06-02 2020-06-02 Letter Doctor MILLAN 1.2.840.114 [id number] Univers 00:00:00 00:00:00 (Out) Unassigned, CARLOS 350.1.13.10 ity of [place] [facility] 4.2.7.2.686 Bernabe as [phone] [facility] [address] [place] 2020-06-02 2020-06-02 Letter Doctor YANA 1.2.840.114 [id number] Univers 00:00:00 00:00:00 (Out) Unassigned, CARLOS 350.1.13.10 ity of [place] [facility] 4.2.7.2.686 Bernabe as [phone] [address] 2020-05-20 2020-05-20 Telephone YANA Samano 1.2.724.656 [id number] Univers 00:00:00 00:00:00 Teri A CARLOS 350.1.13.10 ity of HOSPITAL 4.2.7.2.686 Bernabe as [phone] [facility] [address] [place] [address] 2020-05-20 2020-05-20 Telephone YANA Samano 1.2.936.966 [id number] 00:00:00 00:00:00 Teri A CARLOS 350.1.13.10 HOSPITAL 4.2.7.2.686 [phone] [facility] 2020-04-28 2020-04-28 [facility] 1.2.840.114 [id number] Univers 00:00:00 00:00:00 Silverio [place] 350.1.13.10 i ty [place] [phone] [address] 2020-04-27 2020-04-27 Office [facility] 1.2.840.114 [id number] Univers 11:25:29 11:45:29 Visit Silverio [place] 350.1.13.10 i ty of [place] 4[place]2.7.2.[place] [phone] [address] 2020-04-27 2020-04-27 Outpatient Moustapha ADAM [facility] [id number] Univers 11:40:00 11:40:00 SILVERIO ity of [facility] 2020-04-26 2020-04-26 Outpatient R KIT [facility] [id number] Univers 10:20:00 10:20:00 ERICH ity of [facility] 2020-04-14 2020-04-14 [facility] 1.2.312.205 [id number] Univers 09:18:24 23:59:00 Encounter Wondiful A [place] 350.1.13.10 ity of [place].2.7.2.686 [place] [phone] [facility] [address] [place] 2020-04-14 2020-04-14 Outpatient [facility] [id number] Univers 00:00:00 00:00:00 WONDIFUL ity o f [facility] 2020-03-31 2020-03-31 [place], [facility] Lab Main [facility] 1.2.8 40.114 [id number] [facility] 09:18:24 09:33:24 Visit Clare Gonsalves [place] 350.1.13. 10 it[place] of [place].2.7.2.[place] [phone] Tn dical nal 353 [facility] 2020-03-31 2020-03-31 Outpatient [facility] [id number] Univers 09:15:00 09:15:00 WONDIFUL ity o f [facility] 2020-03-30 2020-03-30 Laboratory Pacemaker/Icd, [facility] 1.2. 840.114 [id number] Univers 12:51:02 13:15:05 Only Silverio Adam [place] 350.1.13.10 ity of [place] 4.2.7.2.686 [place] [phone] Tn dical nal 059 [facility] 2020-03-30 2020-03-30 Outpatient R [facility] [id number] Univers 13:00:00 13:00:00 ity of [facility] 2020-03-29 2020-03-29 [facility] 1.2.840.114 [id number] Univers 15:15:24 16:12:41 Visit Wondiful A Health 350.1.13.10 ity of [place] 4.2.7.2.686 Bernabe as Professio [phone] Me dical nal [address] [place] Office [facility] One 2020-03-29 2020-03-29 Outpatient R MAJOR [facility] [id number] Univers 15:30:00 15:30:00 CLARE de oliveira o f [facility] 2020-03-03 2020-03-03 Orders Doctor YANA 1.2.840.114 [id number] Univers 00:00:00 00:00:00 Only Unassigned, CARLOS 350.1.13.10 ity of [place] [facility] 4.2.7.2.686 Bernabe as [phone] [address] 2020-02-03 2020-02-03 Outpatient R [facility] [id number] Univers 14:20:00 14:20:00 SRIRAM de oliveira o f [facility] 2020-02-03 2020-02-03 Office [facility] 1.2.840.114 [id number] Univers 13:38:09 14:13:45 Visit Sriram [place] 350.1.13.10 ity of [place].2.[place] [phone] [facility] nal [address] [place] [address] 2020-01-27 2020-01-27 Office [facility] 1.2.840.114 [id number] Univers 10:58:57 11:32:49 Visit Silverio [place] 350.1.13.10 i ty [place]2.7.2.[place] [phone] [address] 2020-01-27 2020-01-27 Outpatient R [facility] [id number] Univers 11:00:00 11:00:00 SILVERIO ity of [facility] 2020-01-20 2020-01-20 Orders Doctor YANA 1.2.840.114 [id number] Univers 00:00:00 00:00:00 Only Unassigned, CARLOS 350.1.13.10 ity of [place] [facility] 4.2.7.2.686 Bernabe as [phone] [address] 2020-01-20 2020-01-20 Telephone [facility] 1.2.024.467 [id number] Univers 00:00:00 00:00:00 Sriram [place] 350.1.13.10 it[place] of [place].7.2.[place] [phone] Tn dical nal 059 [facility] 2020-01-20 2020-01-20 Refill [facility] 1.2.840.114 [id number] Univers 00:00:00 00:00:00 Qiangjun [place] 350.1.13.10 ity of [place] 4.2.7.2.[place] [phone] Tn dicwa nal 9 [facility] 2020-01-14 2020-01-14 Orders Doctor YANA 1.2.840.114 [id number] Univers 00:00:00 00:00:00 Only Unassigned, CARLOS 350.1.13.10 ity of [place] [facility] 4.2.7.2.686 Bernabe as [phone] [address] 2020-01-12 2020-01-12 Outpatient R [facility] [id number] Univers 10:00:00 10:00:00 DIMITRIZECHARIAH ity o f [facility] 2020-01-05 2020-01-05 [employer] 2, Adc Lab [facility] 1.2.840.114 [id number] Univers 15:31:18 15:46:18 Visit Min Jay 350.1.1 3.10 ity of [place].2.7.2.[place] [phone] Tn dicwa nal 353 [facility] 2020-01-05 2020-01-05 Office Omole, [facility] 1.2.840.114 [id number] Univers 14:39:45 15:28:14 Visit Min Pal[place] 350.1.13.10 i ty of Parmjitmnayla [place] 4.2.7.2.686 [place] [phone] Tn dicwa nal 059 [facility] 2020-01-05 2020-01-05 Outpatient R FREDDY [facility] [id number] Univers 14:45:00 14:45:00 MIN ity of [facility] 2020-01-05 2020-01-05 Orders Doctor MILLAN 1.2.840.114 [id number] Univers 00:00:00 00:00:00 Only Unassigned, CARLOS 350.1.13.10 ity of [place] [facility] 4.2.7.2.686 Bernabe as [phone] [facility] [address] [place] 2020-01-01 2020-01-01 Telephone [facility] 1.2.978.606 [id number] Univers 00:00:00 00:00:00 Sriram [place] 350.1.13.10 it[place] of [place] 4.2.7.2.[place] [phone] Tn dical nal 059 [facility] 2019-12-19 2019-12-19 Office [facility] 1.2.840.114 [id number] Univers 11:30:41 12:16:36 Visit Nita [place] 350.1.13.10 i ty of [place] 4.2.7.2.[place] [phone] Tn dical nal 085 [facility] 2019-12-19 2019-12-19 Outpatient R NITA DEGROOT [facility] [id number] Univers 11:40:00 11:40:00 NITA DEGROOT i ty of [facility] 2019-12-19 2019-12-19 Telephone [facility] 1.2.552.353 [id number] Univers 00:00:00 00:00:00 Guillechaim [place] 350.1.13.10 ity of [place] 4.2.7.2.[place] [phone] Tn dical nal 059 [facility] 2019-12-18 2019-12-18 Orders Doctor YANA 1.2.840.114 [id number] Univers 00:00:00 00:00:00 Only Unassigned, CARLOS 350.1.13.10 ity of [place] [facility] 4.2.7.2.686 Bernabe as [phone] [facility] [address] [place] 2019-12-16 2019-12-16 [facility] 1.2.840.114 [id number] Univers 08:53:47 09:13:47 Visit Silverio Pal[place] 350.1.13.10 i ty of [place] 4.2.7.2.[place] [phone] Tn dical nal 059 [facility] 2019-12-16 2019-12-16 Outpatient R KIA [facility] [id number] Univers 09:00:00 09:00:00 SILVERIO ity of [facility] 2019-12-15 2019-12-15 Telephone Major [facility] 1.2.840.114 [id number] Univers 00:00:00 00:00:00 Wondiful A Health 350.1.13.10 ity of [place] 4.2.7.2.686 Bernabe as Professio [phone] [facility]n [facility]. [facility] [address] [place] Office [facility] 2019-12-15 2019-12-15 Case Major [facility] 1.2.840.114 [id number] Univers 00:00:00 00:00:00 Management Wondiful A Health 350.1.13.10 ity of [place] 4.2.7.2.686 Bernabe as Professio [phone] [facility] nal [address] [place] Office [facility] 2019-12-10 2019-12-10 Orders Doctor YANA 1.2.840.114 [id number] Univers 00:00:00 00:00:00 Only Unassigned, CARLOS 350.1.13.10 ity of [place] [facility] 4.2.7.2.686 Bernabe as [phone] [address] 2019-12-09 2019-12-09 Urgent Provider, [facility] Care [facility] 1.2.840.114 [id number] Univers 14:46:41 15:59:38 Care Monica [facility] 350.1.13.10 ity of [place] 4.2.7.2.686 Bernabe as Professio [phone] [facility] [address] [place] Office [facility] 2019-12-09 2019-12-09 Outpatient R LUKE [facility] [id number] Univers 15:00:00 15:00:00 MONICA ity of [facility] 2019-12-04 2019-12-04 Office Major [facility] 1.2.840.114 [id number] Univers 12:39:51 13:39:11 Visit Wondiful A Health 350.1.13.10 ity of [place] 4.2.7.2.686 Bernabe as Professio [phone] Tn dicwa nal [address] [place] Office [facility] One 2019-12-04 2019-12-04 Outpatient R MAJOR [facility] [id number] Univers 13:00:00 13:00:00 WONDIFUL ity o f [facility] 2019-12-02 2019-12-02 Laboratory Pacemaker/Icd, [facility] 1.2. 840.114 [id number] Univers 10:50:24 11:27:03 Only Sriram Heath 350.1.13.10 it[place] of [place].2.[place] [phone] [address] 2019-12-02 2019-12-02 Outpatient R [facility] [id number] Univers 11:00:00 11:00:00 ity of [facility] 2019-12-02 2019-12-02 Telephone [facility] 1..840.114 [id number] Univers 00:00:00 00:00:00 Wondiful A Health 350.1.13.10 ity of [place] 4.2.7.2.686 Bernabe as Professio [phone] [address] Office [facility] 2019-12-01 2019-12-01 Office [facility] 1..840.114 [id number] Univers 15:16:46 16:01:04 Visit Sriram [place] 350.1.13.10 it[place] of [place].2.[place] [phone] Tn dic[address] 2019-12-01 2019-12-01 Outpatient [facility] [id number] Univers 15:40:00 15:40:00 SRIRAM ity o f [facility] 2019-12-01 2019-12-01 Transition Jono Mccurdy 1.2.840.114 [id number] Univers 00:00:00 00:00:00 of Care Jo L Mg 350.1.13.10 i ty of [place]2.7.2.[place] [phone] [address] 2019-11-26 2019-11-28 Hospital Kirt Thomason [facility] 1.2.840.1 14 [id number] Univers 14:42:00 15:06:00 Encounter Gab Servin 350.1.13.10 it[place] of [place] [phone] [facility] [address] [place] 2019-11-26 2019-11-28 Inpatient X [facility] [id number] Univers 14:42:00 15:06:00 ity of [facility] 2019-11-26 2019-11-26 Telephone [facility] 1.2.840.114 [id number] Univers 00:00:00 00:00:00 Wondiful A Health 350.1.13.10 ity of [place] 4.2.7.2.686 Bernabe as Professio [phone] Tn dic[address] Office [facility] 2019-11-24 2019-11-24 Telemedici [facility] 1.2.840.114 [id number] Univers 12:42:21 16:15:48 ne Visit Wondiful A Health 350.1.13.10 ity of [place] 4.2.7.2.686 Bernabe as Professio [phone] Tn dic[address] Office [facility] 2019-11-24 2019-11-24 Outpatient R MAJOR [facility] [id number] Univers 15:30:00 15:30:00 WONDIFUL ity o f [facility] 2019-11-24 2019-11-24 Transition Jono Henry 1.2.840.114 [id number] Univers 00:00:00 00:00:00 of Care Cielo Mg 350.1.13.10 it y of [place].2.[place] [phone] [facility] [address] [place] 2019-11-24 2019-11-24 Orders Doctor MILLAN 1.2.840.114 [id number] Univers 00:00:00 00:00:00 Only Unassigned, CARLOS 350.1.13.10 ity of [place] [facility] 4.2.7.2.686 Bernabe as [phone] [facility] [address] 2019-11-21 2019-11-21 Transition Jono Henry 1.2.840.114 [id number] Univers 00:00:00 00:00:00 of Care Cielo Rochay 350.1.13.10 it y of [place].2.[place] [phone] [facility] [address] 2019-11-08 2019-11-20 [facility] 1.2.840.114 [id number] Univers 18:18:00 16:52:00 Encounter Argenis [place] 350.1.13.1 0 ity of [facility] 4.2.7.2 .686 [place] [phone] [facility] [address] [place] 2019-11-08 2019-11-20 Inpatient U [facility] [id number] Univers 18:18:00 16:52:00 [facility] ity [facility] 2019-11-20 2019-11-20 [facility] 1.2.840.114 [id number] Univers 00:00:00 00:00:00 Wondiful A Health 350.1.13.10 ity of [place] 4.2.7.2.686 Bernabe as Professio [phone] [address] One 2019-11-19 2019-11-19 Outpatient R [facility] [id number] Univers 14:30:00 14:30:00 [place] ity [facility] 2019-11-19 2019-11-19 Cali [facility] 1.2.840.114 [id number] Univers 00:00:00 00:00:00 Wondiful A Health 350.1.13.10 ity of [place] 4.2.7.2.686 Bernabe as Professio [phone] [address] One 2019-11-17 2019-11-17 Outpatient [facility] [id number] Univers 08:00:00 08:00:00 SILVERIO ity [facility] 2019-11-14 2019-11-14 Outpatient R [facility] [id number] Univers 09:00:00 09:00:00 ity of [facility] 2019-11-10 2019-11-10 Telephone [facility] 1.2.840.114 [id number] Univers 00:00:00 00:00:00 Wondiful A Health 350.1.13.10 ity of [place] 4.2.7.2.686 Bernabe as Professio [phone] [address] Office Building One 2019-11-08 2019-11-08 Refill [facility] 1.2.840.114 [id number] Univers 00:00:00 00:00:00 Wondiful A Health 350.1.13.10 ity of [place] 4.2.7.2.686 Bernabe as Professio [phone] [address] Office Building One 2019-11-05 2019-11-05 [facility] Kia [facility] 1.2.840.114 [id number] Univers 07:42:01 23:59:00 Encounter Silverio Health 350.1.13.10 [place].2.[place] [phone] [address] ([facility]) 2019-11-05 2019-11-05 Outpatient R KIA [facility] [id number] Univers 00:00:00 00:00:00 SILVERIO ity [facility] 2019-10-29 2019-10-29 Pre Visit [facility] 1.2.840.114 [id number] Univers 00:00:00 00:00:00 Outreach Wondiful A Health 350.1.13.10 ity of [place] 4.2.7.2.686 Bernabe as Professio [phone] [address] Office Building One 2019-10-29 2019-10-29 Pre Visit Major [facility] 1.2.840.114 [id number] Univers 00:00:00 00:00:00 Outreach Wondiful A Health 350.1.13.10 ity of [place] 4.2.7.2.686 Bernabe as Professio [phone] [address] Office Building One 2019-10-28 2019-10-28 Office Major [facility] 1.2.840.114 [id number] Univers 08:55:08 09:43:57 Visit Wondiful A Health 350.1.13.10 ity of [place] 4.2.7.2.686 Bernabe as Professio [phone] [address] One 2019-10-28 2019-10-28 Outpatient [facility] [id number] Univers 09:30:00 09:30:00 WONDIFUL ity o f [facility] 2019-10-24 2019-10-24 Emergency [facility] 1.2.424.646 [id number] Univers 19:34:00 23:51:00 Wakili S [place] 350.1.13.10 [place] [phone] [place] [address]14 [place] 2019-10-24 2019-10-24 Emergency X [facility] ERT [id number] Univers 19:34:00 23:51:00 WAKILI ity of [facility] 2019-10-24 2019-10-24 [facility]phone [facility] 1.2.840.114 [id number] Univers 00:00:00 00:00:00 Wondiful A Health 350.1.13.10 ity of [place] 4.2.7.2.686 [place] as Professio [phone] [address] Office [facility] 2019-10-24 2019-10-24 Orders Doctor YANA 1.2.840.114 [id number] Univers 00:00:00 00:00:00 Only Unassigned, CARLOS 350.1.13.10 ity of [place] [facility] 4.2.7.2.686 Bernabe as [phone] [facility] [address] 2019-10-21 2019-10-21 Telephone Mary Kay Adam [id number] Univers 00:00:00 00:00:00 Silverio Carlos 350.1.13.10 it y of Hospital 4.2.7.2.686 [place]abe as [phone] [facility] [address] 2019-10-09 2019-10-09 Telephone GLENNA Adam 1.2.840.114 [id number] Univers 00:00:00 00:00:00 Silverio Y HEALTH 350.1.13.10 i ty of [place] [phone] [facility] [address] [place] [address] 2019-10-08 2019-10-08 Telephone [place], [facility] 1.2.840.114 [id number] Univers 00:00:00 00:00:00 Wondiful A Health 350.1.13.10 ity of [place] 4.2.7.2.686 Bernabe as Professio [phone] [facility] [address] [place] [address] 2019-10-08 2019-10-08 Telephone [facility], [facility] [id number] Univers 00:00:00 00:00:00 [place] 350.1.13.10 [place] [phone] [address] 2019-10-01 2019-10-01 Orders Doctor YANA 1.2.840.114 [id number] Univers 00:00:00 00:00:00 Only Unassigned, CARLOS 350.1.13.10 ity of [place] [facility] 4.2.7.2.686 [place]abe as [phone] [facility] [address] [place] 2019-09-23 2019-09-23 Telephone [facility] [place], [facility] [id number] Univers 00:00:00 00:00:00 [place] 350.1.13.10 i [place] [phone] [address] 2019-09-18 2019-09-18 Telephone [place], [facility] 1.2.840.114 [id number] Univers 00:00:00 00:00:00 Wondiful A [place] 350.1.13.10 [place] [phone] [place] [facility] 044 [facility] 2019-09-17 2019-09-17 Telephone [facility], [facility] 1.2.319.925 [id number] Univers 00:00:00 00:00:00 Silverio [place] 350.1.13.10 [place] [phone] Tn dical nal 059 [facility] 2019-09-16 2019-09-16 Office [facility] 1.2.840.114 [id number] Univers 10:18:05 12:06:59 Visit Silverio [place] 350.1.13.10 [place] [phone] Tn dical nal 059 [facility] 2019-09-16 2019-09-16 Outpatient [facility] [id number] Univers 10:40:00 10:40:00 SILVERIO ity of [facility] 2019-09-16 2019-09-16 Telephone [facility] 1.2.297.448 [id number] Univers 00:00:00 00:00:00 Qiangjun [place] 350.1.13.10 [place] [phone] Tn dical nal 059 [facility] 2019-09-15 2019-09-15 Laboratory Pc, Adc Echo Room 1 - [facility] 1 .2.840.114 [id number] Univers 09:42:44 11:10:38 Only Sriram Heath 350.1.13.10 [place] [phone] Tn dical nal 059 [facility] 2019-09-15 2019-09-15 Outpatient R [facility] [id number] Univers 10:00:00 10:00:00 ity of [facility] 2019-09-10 2019-09-10 Telephone Major [facility] 1.2.840.114 [id number] Univers 00:00:00 00:00:00 Wondiful A [place] 350.1.13.10 [place] [phone] Tn dical nal 044 [facility] 2019-09-08 2019-09-08 Office [facility] 1.2.840.114 [id number] Univers 13:10:22 13:44:08 Visit Sriram Palomo 350.1.13.10 [place] [phone] Tn dical nal 059 [facility] 2019-09-08 2019-09-08 Outpatient R KUMAR [facility] [id number] Univers 13:20:00 13:20:00 DIMITRIZECHARIAH ity o f [facility] 2019-08-25 2019-08-25 Refill [facility] 1.2.840.114 [id number] Univers 00:00:00 00:00:00 Dimitrizechariah [facility] 350.1.13.10 i ty of [place] 4.2.7.2.686 Bern[place] as Professio [phone] [facility] 044 [facility] 2019-08-18 2019-08-18 Telephone [facility] 1.2.513.710 [id number] Univers 00:00:00 00:00:00 Sriram Palomo 350.1.13.10 [place] [phone] Tn dicwa nal 059 [facility] 2019-08-15 2019-08-15 Nurse Visit, [facility] Nurse [facility] 1.2.840.1 14 [id number] [facility] 09:12:28 21:57:47 Visit Dago Gross 350.1.13. 10 [place] [phone] Tn dical nal 059 [facility] 2019-08-15 2019-08-15 [employer] 2, [facility] Lab [facility] 1.2.840.114 [id number] Univers 10:09:35 10:24:35 Visit Dago Gross 350.1.13. 10 [place] [phone] [facility] 353 [facility] 2019-08-15 2019-08-15 Outpatient R [facility] [id number] Univers 09:30:00 09:30:00 ity of [facility] 2019-08-13 2019-08-13 Office [facility] 1.2.840.114 [id number] Univers 16:05:34 16:57:20 Visit Alexey Pal[place] 350.1.13.10 [place] [phone] Tn dical nal 220 [facility] 2019-08-13 2019-08-13 Outpatient R TIN [facility] [id number] Univers 16:30:00 16:30:00 WENTONG ity of [facility] 2019-08-13 2019-08-13 Orders Doctor YANA 1.2.840.114 [id number] Univers 00:00:00 00:00:00 Only Unassigned, CARLOS 350.1.13.10 ity of [facility] 4.2.7.2.686 Bernabe as [phone] [address] 2019-08-13 2019-08-13 Refill Kumar [facility] 1.2.840.114 [id number] Univers 00:00:00 00:00:00 Sriram Palomo 350.1.13.10 [place] [phone] [facility] 059 [facility] 2019-08-07 2019-08-07 Refill Major [facility] 1.2.840.114 [id number] Univers 00:00:00 00:00:00 Wondiful A Health 350.1.13.10 ity of [place] 4.2.7.2.686 [place]abe as Professio [phone] Tn dical nal [address] [place] [address] One 2019-08-04 2019-08-04 [employer] Pc, Adc Vascular Room 1 - [facility] 1.2.840.114 [id number] Univers 10:43:00 11:05:18 Visit Sriram Heath 350.1.13.10 [place] [phone] Tn dical nal 059 [facility] 2019-08-04 2019-08-04 Outpatient R [facility] [id number] Univers 11:00:00 11:00:00 ity of [facility] 2019-08-04 2019-08-04 Telephone [facility] 1.2.070.352 [id number] Univers 00:00:00 00:00:00 Sriram Palomo 350.1.13.10 [place] [phone] [place] [address] [facility] 2019-08-03 2019-08-03 Refill [facility] 1.2.840.114 [id number] Univers 00:00:00 00:00:00 Wondiful A Health 350.1.13.10 ity of [place] 4.2.7.2.686 [place]abe as Professio [phone] [address] Office Building One 2019-07-30 2019-07-30 Office [facility] 1.2.840.114 [id number] Univers 13:54:46 14:40:55 Visit Sriram Pal[place] 350.1.13.10 [place] [phone] [address] 2019-07-30 2019-07-30 Outpatient R [facility] [id number] Univers 14:20:00 14:20:00 SRIRAM de oliveira o f [facility] 2019-07-30 2019-07-30 Orders Doctor YANA 1.2.840.114 [id number] Univers 00:00:00 00:00:00 Only Unassigned, CARLOS 350.1.13.10 ity of [place] [facility] 4.2.7.2.686 Bernabe as [phone] [address] 2019-07-17 2019-07-17 Orders Doctor YANA 1.2.840.114 [id number] Univers 00:00:00 00:00:00 Only Unassigned, CARLOS 350.1.13.10 ity of [place] [facility] 4.2.7.2.686 Bernabe as [phone] [address] 2019-07-16 2019-07-16 Telephone [facility] 1.2.840.114 [id number] Univers 00:00:00 00:00:00 Wondiful A Health 350.1.13.10 ity of [place] 4.2.7.2.686 [place]abe as Professio [phone] [facility] 044 [facility] 2019-07-01 2019-07-01 Telephone [facility] 1.2.422.739 [id number] Univers 00:00:00 00:00:00 Sriram Palomo 350.1.13.10 [place] [phone] [facility] 059 [facility] 2019-06-30 2019-06-30 [employer] [place], Adc Lab Main [facility] 1.2.8 40.114 [id number] Univers 07:52:57 08:07:57 Visit Sriram Heath 350.1.13.10 [place] [phone] [facility] 353 [facility] 2019-06-30 2019-06-30 [facility] [id number] Univers 08:00:00 08:00:00 SRIRAM fergusony o maine [facility] 2019-06-25 2019-06-25 Outpatient [facility] [id number] Univers 09:40:00 09:40:00 SRIRAM de oliveira o maine [facility] 2019-06-25 2019-06-25 Telemedici [facility] 1.2.840.114 [id number] Univers 08:37:50 08:57:50 ne Visit Sriram Palomo 350.1.13.10 [place] [phone] [facility] 059 [facility] 2019-05-28 2019-05-28 Refisra [facility] 1.2.840.114 [id number] Univers 00:00:00 00:00:00 Wondiful A Health 350.1.13.10 ity of [place] 4.2.7.2.686 [place] as Professio [phone] [address] 2019-05-25 2019-05-25 [facility] 1.2.840.114 [id number] Univers 00:00:00 00:00:00 Wondiful A Health 350.1.13.10 ity of [place] 4.2.7.2.686 [place] Professio [phone] [address] 2019-05-21 2019-05-21 Outpatient R ALEXUS RAMOS [facility] [id number] Univers 10:00:00 10:00:00 ATAALEXUS JUNG ity of [facility] 2019-05-20 2019-05-20 Telemedici [facility] 1..840.114 [id number] Univers 13:50:59 14:10:59 ne Visit Sriram [place] 350.1.13.10 [place] [phone] [address] 2019-05-20 2019-05-20 Outpatient [facility] [id number] Univers 13:40:00 13:40:00 SRIRAM ity o f [facility] 2019-05-20 2019-05-20 Telephone [facility] 1..840.114 [id number] [facility] 00:00:00 00:00:00 Wondiful A Health 350.1.13.10 ity of [place] 4.2.7.2.686 Bernabe as Professio [phone] [address] 2019-05-13 2019-05-13 Telephone [facility] 1.2.002.670 [id number] Univers 00:00:00 00:00:00 Guillengjun [place] 350.1.13.10 [place] [phone] Tn dical nal 9 [facility] 2019-05-09 2019-05-09 Refill [facility] 1.2.840.114 [id number] Univers 00:00:00 00:00:00 Wondiful A Health 350.1.13.10 ity of [place] 4.2.7.2.686 [place]abe as Professio [phone] [address] 2019-05-02 2019-05-02 Telephone [facility] 1.2.840.114 [id number] Univers 00:00:00 00:00:00 Wondiful A Health 350.1.13.10 ity of [place] 4.2.7.2.686 Bernabe as Professio [phone] Tn dical nal 044 [facility] 2019-05-02 2019-05-02 Telephone [facility] 1.2.645.093 [id number] Univers 00:00:00 00:00:00 Wentong [place] 350.1.13.10 i [place].2.[place] [phone] Tn dical nal 220 [facility] 2019-04-30 2019-04-30 [place], Adc Lab Main [facility] 1.2.8 40.114 [id number] Univers 09:32:20 09:47:20 Visit Sriram Heath 350.1.13.10 [place] [phone] Tn dical nal 353 [facility] 2019-04-30 2019-04-30 Outpatient R KUMAR, [facility] [id number] Univers 09:45:00 09:45:00 SRIRAM de oliveira o f [facility] 2019-04-30 2019-04-30 Telephone [facility] 1.2.840.114 [id number] Univers 00:00:00 00:00:00 Wondiful A Health 350.1.13.10 ity of [place] 4.2.7.2.686 Bernabe as Professio [phone] Tn dical nal 044 [facility] 2019-04-28 2019-04-28 Office [facility] 1.2.840.114 [id number] Univers 13:21:45 14:34:07 Visit Sriram Palomo 350.1.13.10 [place] of [place]2.[place].2.[place] [phone] Tn dical nal 059 [facility] 2019-04-28 2019-04-28 Outpatient [facility] [id number] Univers 13:20:00 13:20:00 QIANGJUN alvino o f [facility] 2019-04-09 2019-04-09 [employer] [place], Luís Lab Main [facility] 1.2.8 40.114 [id number] Univers 16:15:01 16:30:01 Visit Tin Loboharriett Palomo 350.1.13.10 it[place] of [place].2.[place] [phone] Tn dical nal 353 [facility] 2019-04-09 2019-04-09 Office Tin [facility] 1.2.840.114 [id number] Univers 15:08:31 15:58:05 Visit Loboharriett Palomo 350.1.13.10 i ty [place] [phone] [facility] 220 [facility] 2019-04-09 2019-04-09 Orders Doctor YANA 1.2.840.114 [id number] Univers 00:00:00 00:00:00 Only Unassigned, CARLOS 350.1.13.10 ity of [place] [facility] 4.2.7.2.686 Bernabe as [phone] [address] 2019-03-14 2019-03-30 Nurse Visit, [facility] Nurse [facility] 1.2.840.1 14 [id number] Univers 08:39:08 18:06:53 Visit Dago Gross 350.1.13. 10 [place] of [place].2.[place] [phone] Tn dicwa nal 059 [facility] 2019-03-28 2019-03-28 Telephone Major [facility] 1.2.840.114 [id number] Univers 00:00:00 00:00:00 Wondiful A Health 350.1.13.10 ity of [place] 4.2.7.2.686 Bernabe as Professio [phone] [facility] nal 0[address] [place] [facility] One 2019-03-24 2019-03-24 Telephone Major [facility] 1.2.840.114 [id number] Univers 00:00:00 00:00:00 Wondiful A Health 350.1.13.10 ity of [place] 4.2.7.2.686 Bernabe as Professio [phone] Tn dical nal 044 [address] [facility] [address] One 2019-03-14 2019-03-14 Outpatient R GINNY [facility] [id number] Univers 09:15:00 09:37:46 SENDIL ity of [facility] 2019-03-14 2019-03-14 Orders Doctor YANA 1.2.840.114 [id number] Univers 00:00:00 00:00:00 Only Unassigned, CARLOS 350.1.13.10 ity of [place] [facility] 4.2.7.2.686 Bernabe as [phone] [facility] [address] 2019-03-06 2019-03-06 Telephone [facility] 1.2.840.114 [id number] Univers 00:00:00 00:00:00 Wondiful A Health 350.1.13.10 ity of [place] 4.2.7.2.686 Bernabe as Professio [phone] [place] [address] [address] [facility] One 2019-01-27 2019-01-27 Outpatient R KUMAR, [facility] [id number] Univers 14:20:00 14:44:45 SRIRAM ity o f [facility] 2019-01-19 2019-01-19 Emergency X [facility] ERT [id number] Univers 10:06:29 15:10:00 EVAN de oliveira [facility] 2019-01-06 2019-01-06 Outpatient R MAJOR [facility] [id number] Univers 15:00:00 15:00:00 WONDIFUL ity o f [facility] 2018-12-11 2018-12-11 Outpatient R KANIKA [facility] [id number] Univers 08:45:00 08:45:00 EKATERINA fergusonkelsie [facility] 2018-11-01 2018-11-01 Telephone [facility] 1.2.840.114 [id number] Univers 00:00:00 00:00:00 [employer] 350.1.13.10 it y of [facility] 4.2.7.2.[place] [facility] [phone] [facility] Primary & 059 [facility] 2018-10-31 2018-10-31 Telephone Major [facility] 1.2.840.114 [id number] Univers 00:00:00 00:00:00 Wondiful A Health 350.1.13.10 ity of [place] 4.2.7.2.686 Bernabe as Professio [phone] [address] Office Building One 2018-10-30 2018-10-30 Telephone [facility] 1.2.189.125 [id number] Univers 00:00:00 00:00:00 Madeleine Rica HEALTH 350.1.13.10 ity of [place] 4.2.7.2.[place] [facility] [phone] [facility] & 9 [facility] 2018-10-30 2018-10-30 Telephone [facility] 1.2.840.114 [id number] [facility] 00:00:00 00:00:00 Wondiful A Health 350.1.13.10 ity of [place] 4.2.7.2.686 Bernabe as Professio [phone] [address] Office Building One 2018-10-29 2018-10-29 Office [facility], [facility] 1.2.840.114 [id number] Univers 13:11:56 13:52:23 Visit Emily Health 350.1.13.10 i ty of [place] 4.2.7.2.686 Bernabe as Professio [phone] [address] Office Building One 2018-10-28 2018-10-29 Office Fac, Adc Heart Failure Cardio [facility] 1.2.840.114 [id number] Univers 15:47:43 12:03:16 Visit Edgar Cortés [place] 350.1 .13.10 ity of [place].2.[place].2.[place] [phone] [facility] 059 [facility] 2018-10-28 2018-10-28 [facility] 1.2.840.114 [id number] Univers 16:46:06 23:59:00 Encounter Madeleine Strauss [place] 350.1.13.10 ity of [place] 4.2.7.2.[place] [phone] [facility] [address] 2018-10-28 2018-10-28 [employer] 1, Adc Lab [facility] 1.2.840.114 [id number] Univers 16:41:14 16:56:14 Visit Madeleine Sullivan [place] 350.1.13.10 ity of [place] 4.2.7.2.686 [facility] [phone] [facility] [address] 2018-10-28 2018-10-28 Orders Doctor YANA 1.2.840.114 [id number] Univers 00:00:00 00:00:00 Only Unassigned, CARLOS 350.1.13.10 ity of [place] [facility] 4.2.7.2.686 Bernabe as [phone] [facility] [address] 2018-10-24 2018-10-24 Refisra [place] 1.2.840.114 [id number] Univers 00:00:00 00:00:00 [facility] 350.1.13.10 it y of [facility] 4.2.7.2.686 [facility] [phone] [facility] Primary & 059 [facility] 2018-10-14 2018-10-14 Refill [place] 1.2.840.114 [id number] Univers 00:00:00 00:00:00 Min [place] 350.1.13.10 i ty of [place].2.7.2.[place] [phone] [facility] 059 [address] [facility] 2018-10-01 2018-10-01 Orders Doctor MILLAN 1.2.840.114 [id number] Univers 00:00:00 00:00:00 Only Unassigned, CARLOS 350.1.13.10 ity of [place] [facility] 4.2.7.2.686 Bernabe as [phone] [facility] [address] 2018-09-26 2018-09-26 [employer] [facility] Lab, Adc Fam Pob I [facility] 1.2. 840.114 [id number] Univers 13:45:07 15:25:16 Visit Clare Gonsalves A Health 350.1.13.1 0 ity of [place] 4.2.7.2.686 Bernabe as Professio [phone] [facility] nal [address] [place] [address] Building One 2018-09-26 2018-09-26 Telephone Fac, Adc [facility] 1.2.840.114 [id number] Univers 00:00:00 00:00:00 Heart HEALTH 350.1.13.10 it y of Failure [place] 4.2.7.2.[place] [phone] [facility] Primary & 059 [facility] 2018-09-10 2018-09-10 Office Major [facility] 1.2.840.114 [id number] Univers 12:36:16 13:37:40 Visit WondiMaterialise A Health 350.1.13.10 ity of [place] 4.2.7.2.686 Bernabe as Professio [phone] [facility] [address] [place] [address] Building One 2018-09-02 2018-09-02 Orders Doctor YANA 1.2.840.114 [id number] Univers 00:00:00 00:00:00 Only Unassigned, CARLOS 350.1.13.10 ity of [place] [facility] 4.2.7.2.686 Bernabe as [phone] [facility] 009 Branch Results Test Description Test Time Test Comments Results Result Comments Source POCT GLUCOSE (AUTOMATED) 2022-02-19 18:34:13 Test Item Value Reference Range Interpretation Comme nts POCT GLU (test code = 0438976279) 354 mg/dL 70-110 H Lab Interpretation (test code = 60726-7) Abnormal [facility] GLUCOSE (AUTOMATED)2022-02-19 14:51:34 Test Item Value Reference Range Interpretation Comments POCT GLU (test code = 9655214863) 158 mg/dL 70-110 H Lab Interpretation (test code = Abnormal 42741-5) [facility] GLUCOSE (AUTOMATED)2022-02-19 07:09:11 Test Item Value Reference Range Interpretation Comments POCT GLU (test code = 0694082661) 109 mg/dL 70-110 Lab Interpretation (test code = Normal 98480-1) [facility] GLUCOSE (AUTOMATED)2022-02-19 06:15:00 Test Item Value Reference Range Interpretation Comments POCT GLU (test code = 6533895135) 56 mg/dL 70-110 L Lab Interpretation (test code = Abnormal 24822-3) [facility] GLUCOSE (AUTOMATED)2022-02-19 03:41:03 Test Item Value Reference Range Interpretation Comments POCT GLU (test code = 1456065015) 197 mg/dL 70-110 H Lab Interpretation (test code = Abnormal 86366-3) [facility] GLUCOSE (AUTOMATED)2022-02-18 23:17:16 Test Item Value Reference Range Interpretation Comments POCT GLU (test code = 0413492566) 240 mg/dL 70-110 H Lab Interpretation (test code = Abnormal 80376-9) [facility] GLUCOSE (AUTOMATED)2022-02-18 18:24:23 Test Item Value Reference Range Interpretation Comments POCT GLU (test code = 8312828148) 274 mg/dL 70-110 H Lab Interpretation (test code = Abnormal 25397-5) [facility] GLUCOSE (AUTOMATED)2022-02-18 18:24:18 Test Item Value Reference Range Interpretation Comments POCT GLU (test code = 5402026078) 92 mg/dL 70-110 Lab Interpretation (test code = Normal 97055-0) [facility] (Total Cholesterol, Triglycerides, HDL) - [id number] 12:27:34 Test Item Value Reference Range Interpretation Comments CHOL (test code = 146 mg/dL 120-200 1115520018) HDL (test code = 54 mg/dL See_Comment [Automated message] 0749618156) The system [employer] generated this result transmit luis miguel reference range : >=50. The refer ence range was not u sed to interpret th is result as normal/abnormal . HDLC RATIO (test code = See_Comment [Au tomated message] 4117446906) The system [employer] generated this result transmit luis miguel reference range : <=4.5. The refe rence range was not u sed to interpret th is result as normal/abnormal . TRIG (test code = 113 mg/dL 30-170 8971371311) LDL CHOL (test code = 69 mg/dL See_Comment [Auto mated message] 23354-1) The system [employer] generated this result transmit luis miguel reference range : <=160. The refe rence range was not u sed to interpret th is result as normal/abnormal . VLDL (test code = 23 mg/dL 5-60 9891030080) Lab Interpretation (test Normal code = 75954-6) [facility] [id number] 12:27:34 Test Item Value Reference Range Interpretation Comments NT-proBNP (test code 00984 pg/mL See_Comment H [Autom ated = 6745815685) message] The system which generated this result transmitted reference range : <=450. The reference range was not used to interpret this result as normal/abnormal . SEN (test code = SEN) Biotin has been reported to cause a negative bias, interpret results relative to patient's use of biotin. Lab Interpretation Abnormal (test code = 20240-8) [facility] [place]OLIC PANEL (NA, K, CL, CO2, GLUCOSE, BUN, CREATININE, CA)2022-02-18 12:27:14 Test Item Value Reference Range Interpretation Comments NA (test code = 137 mmol/L 135-145 7645291543) K (test code = 4.0 mmol/L 3.5-5.0 8775939883) CL (test code = 104 mmol/L 98-108 9628689858) CO2 TOTAL (test code = 25 mmol/L 23-31 4401242282) AGAP (test code = 2-16 2806433095) BUN (test code = 62 mg/dL 7-23 H 1335162608) GLUCOSE (test code = 90 mg/dL 70-110 4693605710) CREATININE (test code = 2.02 mg/dL 0.50-1.04 H 3970498008) CALCIUM (test code = 8.3 mg/dL 8.6-10.6 L 9980901661) eGFR (test code = mL/min/1.73m2 9436827677) SEN (test code = SEN) Association of [...] tests). Lab Interpretation Abnormal (test code = 80943-0) [facility] WITH [id number] 11:30:43 Test Item Value Reference Range Interpretation Comments WBC (test code = See_Comment [Automated 4390-2) message] The sy stem which generated this result transmitted reference range : 4.30 - 11.10 10*3/?L. The reference range was not used to interpret this result as normal/abnormal . RBC (test code = See_Comment L [Automated 339-8) message] The sy stem which generated this result transmitted reference range : 3.93 - 5.25 10*6/?L. The reference range was not used to interpret this result as normal/abnormal . HGB (test code = 11.1 g/dL 11.6-15.0 L 718-7) HCT (test code = 33.6 % 35.7-45.2 L 4544-3) MCV (test code = 94.4 fL 80.6-95.5 787-2) MCH (test code = 31.2 pg 25.9-32.8 785-6) MCHC (test code = 33.0 g/dL 31.6-35.1 786-4) RDW-SD (test code = 46.4 fL 39.0-49.9 44318-0) RDW-CV (test code = 13.2 % 12.0-15.5 788-0) PLT (test code = See_Comment [Automated 777-3) message] The sy stem which generated this result transmitted reference range : 166 - 358 10*3/ ?L. The reference r beltran was not used to interpret this result as normal/abnormal . MPV (test code = 13.0 fL 9.5-12.9 H 92379-7) NRBC/100 WBC (test See_Comment [Automat ed code = [id number]) message] The system which generated this result transmitted reference range : 0.0 - 10.0 /100 WBCs. The refer ence range was not u sed to interpret th is result as normal/abnormal . NRBC x10^3 (test code See_Comment [Auto mated = [id number]) message] The s ystem which generated this result transmitted reference range : 10*3/?L. The reference range was not used to interpret this result as normal/abnormal . GRAN MAT (NEUT) % 58.4 % (test code = 770-8) IMM GRAN % (test code 0.30 % = 5165004688) LYMPH % (test code = 27.5 % 736-9) MONO % (test code = 9.3 % 5905-5) EOS % (test code = 4.2 % 713-8) BASO % (test code = 0.3 % 706-2) GRAN MAT x10^3(ANC) 3.71 10*3/uL 1.88-7.09 (test code = 8810361622) IMM GRAN x10^3 (test 0.00-0.06 code = 9313243001) LYMPH x10^3 (test code 1.75 10*3/uL 1.32-3.29 = 731-0) MONO x10^3 (test code 0.59 10*3/uL 0.33-0.92 = 742-7) EOS x10^3 (test code = 0.27 10*3/uL 0.03-0.39 711-2) BASO x10^3 (test code 0.01-0.07 = 704-7) Lab Interpretation Abnormal (test code = 46268-2) [facility] GLUCOSE (AUTOMATED)2022-02-18 02:39:08 Test Item Value Reference Range Interpretation Comments POCT GLU (test code = 9348005934) 196 mg/dL 70-110 H Lab Interpretation (test code = Abnormal 19618-2) [facility]22-02-17 23:16:54 Test Item Value Reference Range Interpretation Comments POCT GLU (test code = 9877316504) 140 mg/dL 70-110 H Lab Interpretation (test code = Abnormal 96270-4) [facility] [place]TTE)2022-02-17 19:44:53 Test Item Value Reference Range Interpretation Comments Height (test code = in 6988710736) Weight (test code = lbs 7580922060) Systolic BP (test code = mmHg 4843441237) Diastolic BP (test code mmHg = 7269512110) Heart Rate (test code = bpm 5704083868) BSA (test code = 1.81 m2 3667037037) Ao root diam (test code 3.30 cm = 2438421743) Aortic root (test code = 3.3 cm 2540795551) Ao root annulus (test 3.3 cm code = 1575639083) LVOT diameter (test code 1.89 cm = 9679850706) LVOT area (test code = 2.80 cm2 7776458155) LAV(MOD-sp4) (test code 52.90 mL = 3723306957) E wave decelartion time 0.17 s (test code = 4121617390) MV stenosis pressure 1/2 51.3 ms time (test code = 3721644709) MV Peak E Mily (test code 95.2 cm/s = 2454581443) MV Peak A Mily (test code 61.8 cm/s = 4134864372) E/A ratio (test code = ratio 7031788982) MV Prop V (test code = 23.30 cm/s 3847951453) MV E/e' septal (test 7.8 cm/s code = 1276413634) TR Peak Mily (test code = 310.8 cm/s 0695389680) Triscuspid Valve mmHg Regurgitation Peak Gradient (test code = 5360010756) Tapse (test code = 1.99 cm 7096835215) LVOT stroke volume (test 40.40 cm3 code = 6179086223) LVOT peak mily (test code 67.8 cm/s = 4781323911) LVOT mn grad (test code mmHg = 2012761647) AV LVOT peak gradient mmHg (test code = 9357881872) LVOT peak VTI (test code 14.4 cm = 2164775743) LV V1 mean (test code = 45.30 cm/s 8627444759) MR max PG (test code = 65.40 mm[Hg] 9462358600) MR max mily (test code = 404.30 cm/s 2879804001) Mr max mily (test code = 404.3 m/s 8343209919) LVIDD (test code = 6.30 cm 3273277210) Left Ventricular End 202.4 mL Diastolic Volume by Teichholz Method (test code = 2025501) IVS (test code = 0.94 cm 6299430591) Interventricular Septum 0.94 cm Diastolic Thickness by 2D (test code = 8334919) LVPWD (test code = 0.94 cm 0570529766) PW (test code = 0.94 cm 0.6-1.9 7166725730) EF(Teich) (test code = 19.10 % 3845691520) LVIDS (test code = 5.80 cm 0220756153) Left Ventricular End 163.8 mL Systolic Volume by Teichholz Method (test code = 2057974) FS (test code = 9 % 7774991782) EF - 2D (test code = 19.10 % 65844158) LA size (test code = 3.5 cm 2814753143) Radiology Study observation (narrative) (test code = 62417-3) SEN (test code = SEN) Table formatting from the original result was not included. ?Left?Ventricle: Left ventricle is mildly dilated. Normal wall thickness. Severely reduced systolic function with a visually estimated EF of 15 - 20%. There is pseudonormal diastolic dysfunction. ?Right?Ventricle: Right ventricle is normal in size and function. Normal wall thickness. ?Left?Atrium: Left atrium is mildly dilated. ?Tricuspid?Valve: Right ventricular systolic pressure is 45-50 mmHg. ?RA pressure is 10-15 mmHg. VitalsHeight Weight BSA (Calculated - sq m) BP Pulse 5' (1.524 m) 194 lb 3.2 oz (88.1 kg) 1.93 sq meters 138/72 68 Left VentricleLeft ventricle is mildly dilated. Normal wall thickness. Septal motion is normal. . Severely reduced systolic function with a visually estimated EF of 15 - 20%. There is pseudonormal diastolic dysfunction.Right VentricleRight ventricle is normal in size and function. Normal wall thickness. Normal systolic function. There is a pacemaker lead in the right ventricle.Left AtriumLeft atrium is mildly dilated.Right AtriumRight atrium size is normal. Lead present in the right atrium.Mitral ValveMitral valve is normal in structure and function. Trace transvalvular regurgitation. No stenosis.Tricuspid ValveTricuspid valve is normal size and function. Trace transvalvular regurgitation. Right ventricular systolic pressure is 45-50 mmHg. RA pressure is 10-15 mmHg. No stenosis.Aortic ValveTricuspid. Mildly thickened cusps.Pulmonic ValveNot well visualized. Trace transvalvular regurgitation. No stenosis.Ascending AortaNormal sized aorta.PericardiumThe pericardium is normal. No pericardial effusion.Study DetailsStudy quality was adequate. A complete echocardiogram was performed using 2D, color flow Doppler and spectral Doppler. 5 mL of Lumason ultrasound enhancing agent used. [facility] GLUCOSE (AUTOMATED)2022-02-17 18:19:03 Test Item Value Reference Range Interpretation Comments POCT GLU (test code = 4562113296) 160 mg/dL 70-110 H Lab Interpretation (test code = Abnormal 44024-0) [facility] GLUCOSE (AUTOMATED)2022-02-17 14:06:55 Test Item Value Reference Range Interpretation Comments POCT GLU (test code = 3485083835) 101 mg/dL 70-110 Lab Interpretation (test code = Normal 85322-1) [facility] GLUCOSE (AUTOMATED)2022-02-17 03:58:48 Test Item Value Reference Range Interpretation Comments POCT GLU (test code = 0848102435) 278 mg/dL 70-110 H Lab Interpretation (test code = Abnormal 54700-2) [facility] GLUCOSE (AUTOMATED)2022-02-17 03:21:46 Test Item Value Reference Range Interpretation Comments POCT GLU (test code = 9539920677) 279 mg/dL 70-110 H Lab Interpretation (test code = Abnormal 22382-0) [facility] HEMOGLOBIN (A1C)2022-02-17 01:58:04 Test Item Value Reference Range Interpretation Comments HGB A1C (test code = 10.0 % 4.0-5.7 H 4548-4) SEN (test code = SEN) Reference RangesNormal: <5.7%Prediabetes: 5.7 - 6.4%Diabetes: > 6.5% Lab Interpretation (test Abnormal code = 21219-1) [facility]TR[facility] [id number] 17:30:57 Test Item Value Reference Interpretation Comments Range TROPONIN I (test 0.028 ng/mL See_Comment [Automated code = 8901226743) message] The system which generated this result [...] biotin. Lab Interpretation Normal (test code = 52530-1) [facility] DallasN-TERMINAL [id number] 17:27:54 Test Item Value Reference Range Interpretation Comments NT-proBNP (test code 49410 pg/mL See_Comment H [Autom ated = 3484401411) message] The system which generated this result transmitted reference range : <=450. The reference range was not used to interpret this result as normal/abnormal . SEN (test code = SEN) Biotin has been reported to cause a negative bias, interpret results relative to patient's use of biotin. Lab Interpretation Abnormal (test code = 90037-2) [facility] METABOLIC PANEL (NA, K, CL, CO2, GLUCOSE, BUN, CREATININE, CA)2022-02-16 17:19:15 Test Item Value Reference Range Interpretation Comments NA (test code = 135 mmol/L 135-145 4654452481) K (test code = 4.7 mmol/L 3.5-5.0 6348964867) CL (test code = 104 mmol/L 98-108 5093137923) CO2 TOTAL (test code = 23 mmol/L 23-31 3107844127) AGAP (test code = 2-16 2547592641) BUN (test code = 58 mg/dL 7-23 H 1230562648) GLUCOSE (test code = 260 mg/dL 70-110 H 5773695059) CREATININE (test code = 1.78 mg/dL 0.50-1.04 H 1474409370) CALCIUM (test code = 8.2 mg/dL 8.6-10.6 L 4259773477) eGFR (test code = mL/min/1.73m2 6029483860) SEN (test code = SEN) Association of [...] tests). Lab Interpretation Abnormal (test code = 21653-3) [facility] [place]AT[facility] FUNCTION PANEL (39943) (ALB,T.PRO,BILI T,BU/BC,ALT,AST,ALK PHOS)2022-02-16 17:19:15 Test Item Value Reference Range Interpretation Comments TOTAL BILI (test code = 8338335556) 0.4 mg/dL 0.1-1.1 BILI UNCON (test code = 3201617161) 0.3 mg/dL 0.1-1.1 BILI CONJ (test code = 7015408172) 0.0 mg/dL 0.0-0.3 T PROTEIN (test code = 0267969056) 6.8 g/dL 6.3-8.2 ALBUMIN (test code = 8505101174) 3.8 g/dL 3.5-5.0 ALK PHOS (test code = 0226839523) 146 U/L 34-122 H ALTv (test code = 1742-6) 29 U/L 5-35 AST(SGOT) (test code = 1497571832) 28 U/L 13-40 Lab Interpretation (test code = Abnormal 71702-4) [facility] DallasLIPASE2022-12-29 17:19:15 Test Item Value Reference Range Interpretation Comments LIPASE (test code = 2304599681) 46 U/L 0-220 Lab Interpretation (test code = Normal 72458-5) [facility] [place]CBC WITH [id number] 17:12:53 Test Item Value Reference Range Interpretation Comments WBC (test code = See_Comment [Automated 9790-2) message] The sy stem which generated this result transmitted reference range : 4.30 - 11.10 10*3/?L. The reference range was not used to interpret this result as normal/abnormal . RBC (test code = See_Comment L [Automated 059-8) message] The sy stem which generated this result transmitted reference range : 3.93 - 5.25 10*6/?L. The reference range was not used to interpret this result as normal/abnormal . HGB (test code = 10.4 g/dL 11.6-15.0 L 718-7) HCT (test code = 31.4 % 35.7-45.2 L 4544-3) MCV (test code = 96.6 fL 80.6-95.5 H 787-2) MCH (test code = 32.0 pg 25.9-32.8 785-6) MCHC (test code = 33.1 g/dL 31.6-35.1 786-4) RDW-SD (test code = 47.8 fL 39.0-49.9 36772-4) RDW-CV (test code = 13.5 % 12.0-15.5 788-0) PLT (test code = See_Comment [Automated 777-3) message] The sy stem which generated this result transmitted reference range : 166 - 358 10*3/ ?L. The reference r beltran was not used to interpret this result as normal/abnormal . MPV (test code = 12.9 fL 9.5-12.9 07154-0) NRBC/100 WBC (test See_Comment [Automat ed code = 2268595852) message] The system which generated this result transmitted reference range : 0.0 - 10.0 /100 WBCs. The refer ence range was not u sed to interpret th is result as normal/abnormal . NRBC x10^3 (test code See_Comment [Auto mated = 3404521900) message] The s ystem which generated this result transmitted reference range : 10*3/?L. The reference range was not used to interpret this result as normal/abnormal . GRAN MAT (NEUT) % 75.4 % (test code = 770-8) IMM GRAN % (test code 0.20 % = 3256788386) LYMPH % (test code = 14.9 % 736-9) MONO % (test code = 7.7 % 5905-5) EOS % (test code = 1.6 % 713-8) BASO % (test code = 0.2 % 706-2) GRAN MAT x10^3(ANC) 6.77 10*3/uL 1.88-7.09 (test code = 4536718203) IMM GRAN x10^3 (test 0.00-0.06 code = 7360890083) LYMPH x10^3 (test code 1.34 10*3/uL 1.32-3.29 = 731-0) MONO x10^3 (test code 0.69 10*3/uL 0.33-0.92 = 742-7) EOS x10^3 (test code = 0.14 10*3/uL 0.03-0.39 711-2) BASO x10^3 (test code 0.01-0.07 = 704-7) Lab Interpretation Abnormal (test code = 05270-1) [facility] HEMOGLOBIN A1C [id number] 15:15:00 Test Item Value Reference Range Interpretation Comments POCT HBA1C (test code = 4548-4) 7.6 % 4-6 A Lab Interpretation (test code = Abnormal 88537-3) [facility] HEMOGLOBIN A1C [id number] 15:15:00 Test Item Value Reference Range Interpretation Comments POCT HBA1C (test code = 4548-4) 7.6 % 4-6 A Lab Interpretation (test code = Abnormal 00035-2) [facility]
[2022-05-02 16:52] LABS: Absolute Lymphocytes (CBC) 1.6 K/uL (0.7-4.9); Lymphocytes % 18.5 % (15.3-44.8); MCV 93.4 fL (80-100); MPV 10.4 fL (7.6-11.3); RBC Red Blood Cell Count 3.64 M/uL (3.86-4.86)
[2022-05-02 16:53] LABS: Protime INR 1.15
[2022-05-02 17:11] LABS: Magnesium 2.8 mg/dL (1.6-2.4); Potassium 4.4 mmol/L (3.5-5.1); Troponin High Sensitivity 18.1 pg/mL (<58.9)
--- NOTE | 2022-05-02 17:17 | RAD REPORT ---
[facility]03 [facility] CLINICAL HISTORY: Shortness of breath COMPARISON: 2021 FINDINGS: Upper lobe vessels are prominent indicative of pulmonary venous hypertension Lungs probably are clear. Heart is mildly to moderately enlarged. Pacemaker leads in place
[2022-05-02 17:29] LABS: SARS-COV-2 RT PCR NEGATIVE (NEGATIVE)
[2022-05-02] MEDS ORDERED: FUROSEMIDE 40 MG/4 ML VIAL ONE (17:29)
[2022-05-02 17:38] LABS: Urine Blood Trace-intact (Negative); Urine Glucose Negative (Negative); Urine Protein 1+ (Negative)
--- NOTE | 2022-05-02 18:30 | ER ---
Nurse's Notes [facility] [place] Name: Teena Simpson Age: 77 yrs Sex: Female : 1945 Arrival Date: 05/02/2022 Time: 15:48 Bed 10 Private MD: Diagnosis: Unspecified combined systolic (congestive) and diastolic (congestive) heart failure;Shortness of breath;Diabetes mellitus due to underlying condition with hyperglycemia Presentation: 05/02 15:51 Chief complaint: Headache, chills, nausea, fatigue, and SOB x 2 days. Coronavirus hb screen: Client presents with at least one sign or symptom that may indicate coronavirus-19. Standard/surgical mask placed on the client. Provider contacted for isolation considerations. Ebola Screen: No symptoms or risks identified at this time. Initial Sepsis Screen: Does the patient meet any 2 criteria? No. Patient's initial sepsis screen is negative. Does the patient have a suspected source of infection? No. Patient's initial sepsis screen is negative. Risk Assessment: Do you want to hurt yourself or someone else? Patient reports no desire to harm self or others. Onset of symptoms was May 01, 2022. 15:51 Method Of Arrival: Wheelchair hb 15:51 Acuity: TYSON 3 hb Triage Assessment: 16:30 Respiratory: Onset: The symptoms/episode began/occurred Last night. nj1 Historical: - Allergies: 15:52 Augmentin; hb 15:52 Cipro; hb - Home Meds: 16:51 atorvastatin 40 mg Oral tab 1 tab every day at bedtime [Active]; furosemide 40 mg Oral nj1 tab 1 tab daily [Active]; metoprolol succinate 50 mg oral Tablet, Extended Release 24 hr 1 tab 2 times per day [Active]; Eliquis 5 mg oral tablet 1 tab 2 times per day [Active]; Phenytoin 100mg Oral 1 tabs 2 times per day [Active]; - PMHx: 15:52 Anxiety; Low HR; Diabetes - IDDM; Hypertension; neuropathy; CHF; Myocardial infarction; hb Seizures; High Cholesterol; Atrial Fib; Kidney failure stage 4; - PSHx: 15:52 Appendectomy; Pacemaker-Defib; hb - Immunization history:: Adult Immunizations up to date. - Social history:: Smoking status: Patient denies any tobacco usage or history of. Screenin:50 [facility] ED Fall Risk Assessment (Adult) History of falling in the last 3 months, nj1 including since admission No falls in past 3 months (0 pts) Confusion or Disorientation No (0 pts) Intoxicated or Sedated No (0 pts) Impaired Gait No (0 pts) Mobility Assist Device Used No (0 pt) Altered Elimination No (0 pt) Score/Fall Risk Level 0 - 2 = Low Risk Oriented to surroundings, Maintained a safe environment, Assessed \T\ reinforced patient's understanding of fall precautions, Hourly rounding (assess needs \T\ fall precautionary measures) done. Abuse screen: Denies threats or abuse. Denies injuries from another. Nutritional screening: No deficits noted. Tuberculosis screening: No symptoms or risk factors identified. Assessment: 16:20 Reassessment: As this RN enters room to assess patient and complete orders, patient nj1 voices the need to use the restroom. This RN offers patient help/wheelchair, patient declines. This RN walks patient to restroom, patient able to ambulate without difficulty, no s/s of distress noted. 16:30 General: Appears in no apparent distress. comfortable, Behavior is calm, cooperative, nj1 appropriate for age. Pain: Denies pain. Neuro: No deficits noted. Level of Consciousness is awake, alert, obeys commands, Oriented to person, place, time, situation. Cardiovascular: Patient's skin is warm and dry. Cardiovascular: Patient's skin is warm and dry. Respiratory: Reports Orthopnea Airway is patent Respiratory effort is even, unlabored, Respiratory pattern is regular. 17:30 Reassessment: Patient appears in no apparent distress at this time. Patient and/or nj1 family updated on plan of care and expected duration. Pain level reassessed. Patient is alert, oriented x 3, equal unlabored respirations, skin warm/dry/pink. 18:03 Cardiovascular: Rhythm is nj1 Vital Signs: 15:51 BP 131 / 71; Pulse 92; Resp 20; Temp 98.4(TE); Pulse Ox 98% on R/A; Weight 79.38 kg; hb Height 5 ft. 0 in. ; Pain 5/10; 16:35 BP 126 / 74; Pulse 91; Resp 20; Pulse Ox 100% on R/A; nj1 17:30 BP 129 / 67; Pulse 91; Resp 23; Pulse Ox 98% on R/A; nj1 15:51 Body Mass Index 34.18 (79.38 kg, 152.4 cm) hb 15:51 Pain Scale: Adult hb ED Course: 15:48 Patient arrived in ED. rg4 15:52 Triage completed. hb 15:52 Arm band placed on. hb 16:04 Luis Alberto Orozco PA is PHCP. cp 16:04 David Fields MD is Attending Physician. cp 16:14 Arianna Dozier, RN is Primary Nurse. nj1 16:30 Bed in low position. Call light in reach. nj1 16:35 Inserted saline lock: 20 gauge in right antecubital area, using aseptic technique. nj1 Blood collected. 17:05 XRAY Chest (1 view) In Process Unspecified. EDMS 18:04 No provider procedures requiring assistance completed. nj1 Administered Medications: 17:30 Drug: Furosemide IVP 40 mg Route: IVP; Site: right antecubital; nj1 Medication: 18:04 VIS not applicable for this client. nj1 Outcome: 18:29 Discharge ordered by . cp Signatures: Dispatcher [employer] EDMS Luis Alberto Orozco PA PA cp Jennifer Conteh, RN RN Emilee Mckeon rg4 Arianna Dozier, WM RN nj1
--- NOTE | 2022-05-02 18:30 | EDPHYS ---
Physician Documentation [facility] Name: Teena Simpson Age: 77 yrs Sex: Female : 1945 Arrival Date: 05/02/2022 Time: 15:48 Bed 10 Private MD: ED Physician David Fields HPI: 05/02 16:10 This 77 yrs old Female presents to ER via Wheelchair with complaints of cp Shortness Of Breath. 16:10 The patient has shortness of breath with light activity, when lying down. Onset: The cp symptoms/episode began/occurred yesterday. Duration: The symptoms are continuous. Associated signs and symptoms: Pertinent negatives: chest pain, productive cough, diaphoresis, fever, hemoptysis. 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 Historical: - Allergies: 15:52 Augmentin; hb 15:52 Cipro; hb - Home Meds: 16:51 atorvastatin 40 mg Oral tab 1 tab every day at bedtime [Active]; furosemide 40 mg Oral nj1 tab 1 tab daily [Active]; metoprolol succinate 50 mg oral Tablet, Extended Release 24 hr 1 tab 2 times per day [Active]; Eliquis 5 mg oral tablet 1 tab 2 times per day [Active]; Phenytoin 100mg Oral 1 tabs 2 times per day [Active]; - PMHx: 15:52 Anxiety; Low HR; Diabetes - IDDM; Hypertension; neuropathy; CHF; Myocardial infarction; hb Seizures; High Cholesterol; Atrial Fib; Kidney failure stage 4; - PSHx: 15:52 Appendectomy; Pacemaker-Defib; hb - Immunization history:: Adult Immunizations up to date. - Social history:: Smoking status: Patient denies any tobacco usage or history of. Exam: 17:25 ECG was reviewed by the Attending Physician. cp Vital Signs: 15:51 BP 131 / 71; Pulse 92; Resp 20; Temp 98.4(TE); Pulse Ox 98% on R/A; Weight 79.38 kg; hb Height 5 ft. 0 in. ; Pain 5/10; 16:35 BP 126 / 74; Pulse 91; Resp 20; Pulse Ox 100% on R/A; nj1 17:30 BP 129 / 67; Pulse 91; Resp 23; Pulse Ox 98% on R/A; nj1 15:51 Body Mass Index 34.18 (79.38 kg, 152.4 cm) hb 15:51 Pain Scale: Adult hb MDM: 16:08 Patient medically screened. cp 05/02 16:09 Order name: EKG; Complete Time: 16:09 cp 05/02 16:09 Order name: IV Saline Lock; Complete Time: 16:46 cp 05/02 16:09 Order name: Labs collected and sent; Complete Time: 16:47 cp 05/02 16:09 Order name: O2 Per Protocol; Complete Time: 16:47 cp 05/02 16:09 Order name: O2 Sat Monitoring; Complete Time: 16:47 cp 05/02 16:09 Order name: PT-INR; Complete Time: 16:59 cp 05/02 16:09 Order name: CBC with Diff; Complete Time: 16:59 cp 05/02 16:59 Interpretation: Normal except: RBC 3.64; HGB 11.3; HCT 34.0; PARTH% 73.9. cp 05/02 16:09 Order name: Troponin HS; Complete Time: 17:13 cp 05/02 16:09 Order name: Basic Metabolic Panel; Complete Time: 17:13 cp 05/02 17:13 Interpretation: Normal except: GLUC 300; BUN 70; CRE 2.01; GFR 25. cp 05/02 16:09 Order name: NT PRO-BNP; Complete Time: 17:13 cp 05/02 17:14 Interpretation: Abnormal: NT PRO-BNP 33279. cp 05/02 16:09 Order name: Magnesium; Complete Time: 17:13 cp 05/02 17:14 Interpretation: Abnormal: MG 2.8. cp 05/02 16:09 Order name: XRAY Chest (1 view); Complete Time: 17:20 cp 05/02 17:20 Interpretation: Report review. cp 05/02 16:09 Order name: Cardiac monitoring; Complete Time: 17:39 cp 05/02 16:09 Order name: EKG - Nurse/Tech; Complete Time: 17:39 cp 05/02 16:09 Order name: COVID-19/FLU A+B; Complete Time: 17:50 cp 05/02 17:39 Order name: Urine Dipstick-Ancillary; Complete Time: 17:50 EDMS 05/02 17:50 Interpretation: Normal except: UBLD Trace-intact; UPROT 1+; UESTR Trace. cp EC:25 Rate is 89 beats/min. Rhythm is regular, Paced. QRS interval is prolonged at 154 msec. cp QT interval is normal. T waves are Inverted in leads I, aVL, aVR, V2. Interpreted by me. Reviewed by me. Administered Medications: 17:30 Drug: Furosemide IVP 40 mg Route: IVP; Site: right antecubital; nj1 Disposition Summary: 05/02/22 18:29 Discharge Ordered Location: Home cp Problem: an acute exacerbation cp Symptoms: have improved cp Condition: Stable cp Diagnosis - Unspecified combined systolic (congestive) and diastolic (congestive) heart failure cp - Shortness of breath cp - Diabetes mellitus due to underlying condition with hyperglycemia cp Followup: cp - With: Private Physician - When: 2 - 3 days - Reason: Recheck today's complaints Forms: - Medication Reconciliation Form cp - Thank You Letter cp - Antibiotic Education cp - Prescription Opioid Use cp Signatures: Dispatcher [employer] EDMS Luis Alberto Orozco PA PA cp Jennifer Conteh, RN RN Arianna Dozier RN RN nj1
[2022-05-02 23:15] VITALS: TEMP 98.4
[2022-05-02 23:18] VITALS: O2SAT 98
[2022-05-02 23:19] VITALS: BP 129/82
--- NOTE | 2022-05-03 13:22 | EKG ---
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
== END 2022-05-02 19:07 | disposition home or self-care (01) ==
LOC: ER 15:44
DX: I50.40 Unspecified combined systolic (congestive) and diastolic (congestive) heart failure (principal); E11.22 Type 2 diabetes mellitus with diabetic chronic kidney disease; E11.65 Type 2 diabetes mellitus with hyperglycemia; I13.0 Hypertensive heart and chronic kidney disease with heart failure and stage 1 through stage 4 chronic kidney disease, or unspecified chronic kidney disease; N18.4 Chronic kidney disease, stage 4 (severe); Z88.1 Allergy status to other antibiotic agents; Z95.810 Presence of automatic (implantable) cardiac defibrillator; Z20.822 Contact with and (suspected) exposure to COVID-19
CPT/HCPCS: 93005; 85025; 80048; 36415; 83735; 85610; 81003; 84484; 83880; 0240U; 71045; 96374; 99284; J1940

== ENCOUNTER 2022-05-05 11:44 | Inpatient (IN) | payer OTHER ==
--- OUTSIDE RECORDS SUMMARY | 2022-05-05 11:54 | XMS REPORT | Continuity of Care Document ---
:1945 Author Organization [facility] t Address [address] [place] [address] [place] [id number] Care Team Providers Name Role Phone CAMRON [...] IBIKUNLE, FOLUSHO F Attending Clinician Unavailable Ibikunle JAVASCRIPT SOFTWARE ENGINEER, Folusho F Attending Clinician Doctor Unassigned, [place] Attending Clinician Unavailable Clare Gonsalves MD Attending Clinician CLARE GONSALVES Attending Clinician Unavailable Tommy BURK, Luis Alberto Attending Clinician Unavailable Mitchell Garcia MD Attending Clinician Pob, [facility] Main Attending Clinician Unavailable Willian SQUIRES, Ortega Lester Attending Clinician [phone] ORTEGA DORSEY Attending Clinician Unavailable Lily BURK, Cielo Attending Clinician Unavailable Ananya Gomez DO Attending Clinician ANANYA GOMEZ Attending Clinician Unavailable JENNIE BACA Attending Clinician Unavailable Epi JAVASCRIPT SOFTWARE ENGINEER, Jennie Attending Clinician ARGENIS BARNETT Attending Clinician Unavailable Damien Hugo MD Attending Clinician Soni Hunter MD Attending Clinician Argenis Barnett MD Attending Clinician Esperanza Cronin RN Attending Clinician Unavailable ANUJ GONZALES Attending Clinician Unavailable Hudson Wolfe MD Attending Clinician Anuj Gonzales MD Attending Clinician Misael Castro MD Attending Clinician GRAMM, SHANTEL A Attending Clinician Unavailable Gramm JAVASCRIPT SOFTWARE ENGINEER, Shantel A Attending Clinician Sabina Barba MD Attending Clinician SABINA BARBA Attending Clinician Unavailable Ericka Chen Attending Clinician ERICKA ACKERMAN Attending Clinician Unavailable Lab, Ang - Db Attending Clinician Unavailable VIRI PRICE Attending Clinician Unavailable Lab, [facility] Fam Pob I Attending Clinician Unavailable Jose JAVASCRIPT SOFTWARE ENGINEERKarla Attending Clinician Dee JAVASCRIPT SOFTWARE ENGINEER, Viri Martinez Attending Clinician Teri Samano RN Attending Clinician Unavailable ERICH PANTOJA Attending Clinician Unavailable Pacemaker/Icd, [facility] Attending Clinician Unavailable Omole JAVASCRIPT SOFTWARE ENGINEER, Min Godinez Attending Clinician [phone] OMOLE, MIN TEEMNAH Attending Clinician Unavailable Nita Degroot DO Attending Clinician NITA DEGROOT Attending Clinician Unavailable NITA DEGROOT Attending Clinician Unavailable Provider, [facility] Attending Clinician Unavailable Anedevante JAVASCRIPT SOFTWARE ENGINEER, Monica Attending Clinician MONICA MCCORMICK Attending Clinician Unavailable Calli BURK, Jo More Attending Clinician Unavailable Kirt Thomason DO Attending Clinician Gab Servin MD Attending Clinician GAB SERVIN Attending Clinician Unavailable Cielo Henry RN Attending Clinician Fam Craig MD Attending Clinician [phone] Edgar Cortés MD Attending Clinician [phone] EDGAR CORTÉS Attending Clinician Unavailable Lubna Lal MD Attending Clinician LUBNA LAL Attending Clinician Unavailable , [facility] Echo Room 1 - Attending Clinician Unavailable Visit, [facility] Nurse Attending Clinician Unavailable Dago Gross MD K.H. Attending Clinician , [facility] Vascular Room 1 - Attending Clinician Unavailable ALEXUS RAMOS Attending Clinician Unavailable ALEXUS RAMOS Attending Clinician Unavailable DAGO GROSS [facility]. Attending Clinician Unavailable EVAN MARTIN Attending Clinician Unavailable EKATERINA BOUDREAUX Attending Clinician Unavailable Nate GALAVIZP, Madeleine Strauss Attending Clinician Emily Sanon Attending Clinician Formerly [facility], Adc Heart Failure Cardio Attending Clinician Unavailjeremy [...] Effective Date Expiration Date S catarino BLAKE/SANDRA [id number] 2019 MEDICARE ADVANTAGE 00:00:00 HU[employer] CHOICE [id number] 2022 00:00:00 Problems Condition Condition Condition Status Onset Resolution Last Treating Co mments Source Name Details Category Date Date Treatment Clinician Date Pulmonary Pulmonary Disease Active 2021-02 Uni vers hypertensi hypertensi 2-31 it y of on on 00:00: [address] Branch Presence Presence Disease Active 2021-02 Unive rs of cardiac of cardiac 2-30 it y of resynchron [place]ynchron [place] ization ization 00 Medical therapy therapy Branch defibrilla defibrilla 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) SOB SOB Disease Active 2021-02 Univers (shortness (shortness 2-29 it y of of breath) of breath) 00:00: [place] [facility] Atrial Atrial Disease Active Univers tachycardi tachycardi 2-25 it y of a a 00:00: [address] Branch Dizziness Dizziness Disease Active Uni vers and and 2-25 ity of giddiness giddiness 00:[place] [facility] [place] V-tach V-tach Disease Active Univers 1-22 ity of 00:00: [place] [facility] GI bleed GI bleed Disease Active Unive rs 1-17 ity of 00:00: [place] [facility] Rectal Rectal Disease Active Overview: Univer s bleeding bleeding 1-17 Formattin ity of 00:00: g of this note Medical might be Branch different from the original. Added automatic ally from request for surgery [id number] Refusal of Refusal of Disease Active 2020-02 U nivers blood blood 2-13 ity of transfusio transfusio 00:00: [place] ns as 00 Medical patient is patient is Br anch [employer] Osteopenia Osteopenia Disease Active 2020-02 U [...] f nodules nodules 00:00: g of this [place] note Medical might be Branch different from [...] chest pain 5-09 it y of 00:00: [place] 00 Medical Branch Left arm Left arm [...] rs LFTs LFTs 5-11 ity of 00:00: [place] [address] Medical Branch Multiple Multiple Disease Active Overview: Un araseli renal renal 5-11 Formattin ity of cysts cysts 00:00: g of this note Medical might be Branch different from the original. Bosniak Type [address] Hyperkalem Hyperkalem Disease Active U nivers ia ia 5- ity of 00:00: [place] [facility] History of History of Disease Active U nivers colon colon 5-03 ity of polyps polyps 00:00: [place] [facility] History of History of Disease Active U nivers pulmonary pulmonary 2-17 ity of embolism embolism 00:00: [place] [facility] ICD ICD Disease Active Univers (implantab (implantab 2-17 it y of le le 00:00: [place] cardiovert cardiovert 00 Me dical er-defibri er-defibri Br anch llator) in llator) in place place Atrial Atrial Disease Active Univers fibrillati fibrillati 1-16 it y of on on 00:00: [place] [address] Medical Branch Syncope Syncope Disease Active Univers 1-15 ity of 00:00: [address] Branch DM DM Disease Active Univers (diabetes (diabetes 8-31 ity of mellitus), mellitus), 00:00[place] type 2 type 2 00 Medical with renal with renal Br anch complicati complicati ons ons Anxiety Anxiety Disease Active Univers ity of [facility] CKD CKD Disease Active Univers (chronic (chronic ity of kidney kidney [place] disease) disease) Medica l stage 4, stage 4, Branch GFR 15-29 GFR 15-29 ml/min ml/min Epilepsy Epilepsy Disease Active Unive rs ity of [facility] Esophageal Esophageal Disease Active U nivers reflux reflux ity of [facility] HLD HLD Disease Active Univers (hyperlipi (hyperlipi it y of demia) demia) [facility] HTN HTN Disease Active Univers [...] tobacco Passive smoker Un iversity of use [place] [facility] History SDOH University o f Alcohol Std Drinks [place] [facility] History SDOH University o f Alcohol Binge [place] [facility] History SDOH Social Unive rsity of Connections [facility] Med ical Together Branch History SDOH Social Unive rsity of Connections [facility] Medical Branch History SDOH Social Unive rsity of Connections [place] Medical Membership Branch History SDOH Social Unive rsity of [facility] Medical Meetings Branch Exposure to 2022-03-12 2022-03-22 Not sure University of SARS-CoV-2 (event) 00:00:00 07:50:00 [place] [facility] Alcohol intake 2022-03-14 2022-03-14 Current University of 00:00:00 00:00:00 non-drinker of [facility] alcohol Branch (finding) History SDOH 2022-02-17 2022-02-17 1 University o f Alcohol Frequency 00:00:00 00:00:00 [facility] edical Branch History SDOH Social 2022-02-17 2022-02-17 5 Unive rsity of Connections Phone 00:00:00 00:00:00 [facility] edical Branch History SDFL Social 2022-02-17 2022-02-17 98 Unive rsity of Connections Living 00:00:00 00:00:00 [place] [facility] History SDFL 2022-02-17 2022-02-17 7 University o f Physical Activity 00:00:00 00:00:00 [facility] edical DPW Branch History [facility] 2022-02-17 2022-02-17 1 University o f Physical Activity 00:00:00 00:00:00 [facility] edical MPS Branch History SDFL 2022-02-17 2022-02-17 5 University o f Financial 00:00:00 00:00:00 [place] [facility] History SDFL Food 2022-02-17 2022-02-17 1 Univers ity of Worry 00:00:00 00:00:00 [place] [facility] History SDFL Food 2022-02-17 2022-02-17 1 Univers ity of Scarcity 00:00:00 00:00:00 [place] [facility] History [facility] 2022-02-17 2022-02-17 2 University o f Transport Med 00:00:00 00:00:00 [place] Medic al Branch History [facility] 2022-02-17 2022-02-17 2 University o f Transport Non-Med 00:00:00 00:00:00 [facility] Branch Tobacco use and 2022-02-16 2022-02-16 Smokeless Universit y of exposure 00:00:00 00:00:00 tobacco non-user [facility] dical [place] Tobacco Comment 2022-02-16 2022-02-16 exposed to "a Univer sity of 00:00:00 00:00:00 lot" of passive [place] Med ical smoke from Branch Sex [birth year] At [birth year] Universit y of 00:00:00 00:00:00 [facility] Smoking Status Start Date Stop Date Source Never smoked tobacco [facility] Medications Ordered Filled Start Stop Current Ordering Indication Dosage Frequency Signature Comments Components Source Medication Medication Date Date Medication? Clinician (SIG) Name Name metoprolol Yes [id number] 50mg Take 1 Univers succinate 2-07 tablet by ity o f XL 50 mg 24 00:00: mouth 2 [place] hr tablet 00 (two) Medical times Branch daily. amiodarone 0 Yes [id number] 200mg Take 1 Univers 200 mg 1-26 tablet by ity of tablet 00:00: mouth [place] 00 daily. Medical Branch amiodarone 2022-0 Yes [id number] 200mg Take 1 Univers 200 mg 1-26 tablet by ity of tablet 00:00: mouth [place] 00 daily. Medical Branch amiodarone 2022-0 Yes [id number] 200mg Take 1 Univers 200 mg 1-26 tablet by ity of tablet 00:00: mouth [place] 00 daily. Medical Branch amiodarone 0 Yes [id number] 200mg Take 1 Univers 200 mg 1-26 [...] day at 6am and 6pm furosemide Yes [id number] 40mg Take 1 Univers 40 mg 1-10 tablet by ity of tablet 00:00: mouth [place] 00 every Medical morning Branch and evening. metoprolol Yes [id number] 50mg Take 1 Univers succinate 1-10 tablet by ity o f XL 50 mg 24 00:00: mouth 2 [place] hr tablet 00 (two) Medical times Branch daily. apixaban Yes 1358 2.5mg Take 1 Univer s (ELIQUIS) 1-10 tablet by ity o f 2.5 mg 00:00: mouth 2 [place] tablet 00 (two) Medical times Branch daily. Indication s: atrial fibrillati on furosemide Yes [id number] 40mg Take 1 Univers 40 mg 1-10 tablet by ity of tablet 00:00: mouth [place] 00 every Medical morning Branch and evening. metoprolol 2022- Yes [id number] 50mg Take 1 Univers succinate 1-10 tablet [...] s: atrial fibrillati on furosemide 2022-0 Yes [id number] 40mg Take 1 Univers 40 mg 1-10 tablet by ity of tablet 00:00: mouth [place] 00 every Medical morning Branch and evening. metoprolol 2022-0 Yes [id number] 50mg Take 1 Univers succinate 1-10 tablet [...] s: atrial fibrillati on furosemide 2022-0 Yes [id number] 40mg Take 1 Univers 40 mg 1-10 tablet by ity of tablet 00:00: mouth [place] 00 every Medical morning Branch and evening. metoprolol 2022-0 Yes [id number] 50mg Take 1 Univers succinate 1-10 tablet [...] s: atrial fibrillati on furosemide 2022-0 Yes [id number] 40mg Take 1 Univers 40 mg 1-10 tablet by ity of tablet 00:00: mouth [place] 00 every Medical morning Branch and evening. metoprolol 2022-0 Yes [id number] 50mg Take 1 Univers succinate 1-10 tablet [...] s: atrial fibrillati on furosemide 2022-0 Yes [id number] 40mg Take 1 Univers 40 mg 1-10 tablet by ity of tablet 00:00: mouth [place] 00 every Medical morning Branch and evening. metoprolol 2022-0 Yes [id number] 50mg Take 1 Univers succinate 1-10 tablet [...] s: atrial fibrillati on furosemide 0 Yes [id number] 40mg Take 1 Univers 40 mg 1-10 tablet by ity of tablet 00:00: mouth [place] 00 every Medical morning Branch and evening. metoprolol 2022-0 Yes [id number] 50mg Take 1 Univers succinate 1-10 tablet [...] s: atrial fibrillati on furosemide 2022-0 Yes [id number] 40mg Take 1 Univers 40 mg 1-10 tablet by ity of tablet 00:00: mouth [place] 00 every Medical morning Branch and evening. apixaban 2022-0 Yes 1358 2.5mg Take 1 Univer s (ELIQUIS) 1-10 tablet by ity o f 2.5 mg 00:00: mouth 2 [place] tablet 00 (two) Medical times Branch daily. Indication s: atrial fibrillati on metoprolol 2022-0 3- No [id number] 50mg Take 1 Univers succinate 1-10 02-06 tablet by ity of XL 50 mg 24 00:00: 00:00 mouth 2 [place] hr tablet 00 :00 (two) Medical times Branch daily. insulin NPH 0 Yes [id number] 20U inject 20 Univers 100 unit/mL 1-02 Units ity of injection 00:00: under the [place] 00 skin every Medical morning. Branch insulin NPH 0 Yes [id number] 20U inject 20 Univers 100 unit/mL 1-02 Units ity of injection 00:00: under the [place] 00 skin every Medical morning. Branch insulin NPH 0 Yes [id number] 20U inject 20 Univers 100 unit/mL 1-02 Units ity of injection 00:00: under the [place] 00 skin every Medical morning. Branch insulin NPH 0 Yes [id number] 20U inject 20 Univers 100 unit/mL 1-02 Units ity of injection 00:00: under the [place] 00 skin every Medical morning. Branch insulin NPH 0 Yes [id number] 20U inject 20 Univers 100 unit/mL 1-02 Units ity of injection 00:00: under the [place] 00 skin every Medical morning. Branch insulin NPH 0 Yes [id number] 20U inject 20 Univers 100 unit/mL 1-02 Units ity of injection 00:00: under the [place] 00 skin every Medical morning. Branch insulin NPH 0 Yes [id number] 20U inject 20 Univers 100 unit/mL 1-02 Units ity of injection 00:00: under the [place] 00 skin every Medical morning. Branch insulin NPH 0 Yes [id number] 20U inject 20 Univers 100 unit/mL 1-02 Units ity of injection 00:00: under the [place] 00 skin every Medical morning. Branch insulin NPH 0 Yes [id number] 20U inject 20 Univers 100 unit/mL 1-02 Units ity of injection 00:00: under the [place] 00 skin every Medical morning. Branch insulin NPH 0 Yes [id number] 20U inject 20 Univers 100 unit/mL 1-02 [...] Discontinu ed, Routine insulin NPH 0 Yes [id number] 15U inject 15 Univers 100 unit/mL 1-01 Units ity of injection 00:00: under the [place] 00 skin at Medical bedtime. Branch polyethylen 0 Yes [id number] 17g Take 1 Univers e glycol 1-01 Packet by ity of 3350 17 00:00: mouth [place] gram powder 00 every 24 Medi sandra (twenty-fo Branch ur) hours as needed for Constipati on. insulin NPH 0 Yes [id number] 15U inject 15 Univers 100 unit/mL 1-01 Units ity of injection 00:00: under the [place] 00 skin at Medical bedtime. Branch polyethylen 2022-0 Yes [id number] 17g Take 1 Univers e glycol 1-01 Packet by ity of 3350 17 00:00: mouth [place] gram powder 00 every 24 Medi snadra (twenty-fo Branch ur) hours as needed for Constipati on. insulin NPH 2022-0 Yes [id number] 15U inject 15 Univers 100 unit/mL 1-01 Units ity of injection 00:00: under the [place] 00 skin at Medical bedtime. Branch polyethylen 2022-0 Yes [id number] 17g Take 1 Univers e glycol 1-01 Packet by ity of 3350 17 00:00: mouth [place] gram powder 00 every 24 Medi sandra (twenty-fo Branch ur) hours as needed for Constipati on. insulin NPH 2022-0 Yes [id number] 15U inject 15 Univers 100 unit/mL 1-01 Units ity of injection 00:00: under the [place] 00 skin at Medical bedtime. Branch polyethylen 2022-0 Yes [id number] 17g Take 1 Univers e glycol 1-01 Packet by ity of 3350 17 00:00: mouth [place] gram powder 00 every 24 Medi sandra (twenty-fo Branch ur) hours as needed for Constipati on. insulin NPH 0 Yes [id number] 15U inject 15 Univers 100 unit/mL 1-01 Units ity of injection 00:00: under the [place] 00 skin at Medical bedtime. Branch polyethylen 0 Yes [id number] 17g Take 1 Univers e glycol 1-01 Packet by ity of 3350 17 00:00: mouth [place] gram powder 00 every 24 Medi sandra (twenty-fo Branch ur) hours as needed for Constipati on. insulin NPH 0 Yes [id number] 15U inject 15 Univers 100 unit/mL 1-01 Units ity of injection 00:00: under the [place] 00 skin at Medical bedtime. Branch polyethylen 0 Yes [id number] 17g Take 1 Univers e glycol 1-01 Packet by ity of 3350 17 00:00: mouth [place] gram powder 00 every 24 Medi sandra (twenty-fo Branch ur) hours as needed for Constipati on. insulin NPH Yes [id number] 15U inject 15 Univers 100 unit/mL 1-01 Units ity of injection 00:00: under the [place] 00 skin at Medical bedtime. Branch polyethylen 0 Yes [id number] 17g Take 1 Univers e glycol 1-01 Packet by ity of 3350 17 00:00: mouth [place] gram powder 00 every 24 Medi sandra (twenty-fo Branch ur) hours as needed for Constipati on. insulin NPH 0 Yes [id number] 15U inject 15 Univers 100 unit/mL 1-01 Units ity of injection 00:00: under the [place] 00 skin at Medical bedtime. Branch polyethylen 0 Yes [id number] 17g Take 1 Univers e glycol 1-01 Packet by ity of 3350 17 00:00: mouth [place] gram powder 00 every 24 Medi sandra (twenty-fo Branch ur) hours as needed for Constipati on. insulin NPH 2022-0 Yes [id number] 15U inject 15 Univers 100 unit/mL 1-01 Units ity of injection 00:00: under the [place] 00 skin at Medical bedtime. Branch polyethylen Yes [id number] 17g Take 1 Univers e glycol 02-19 Packet by ity of 3350 17 00:00: mouth [place] gram powder 00 every 24 Medi sandra (twenty-fo Branch ur) hours as needed for Constipati on. insulin NPH Yes [id number] 15U inject 15 Univers 100 unit/mL 1-01 Units ity of injection 00:00: under the [place] 00 skin at Medical bedtime. Branch polyethylen Yes [id number] 17g Take 1 Univers e glycol 02-19 Packet by ity of 3350 17 00:00: mouth [place] gram powder 00 every 24 Medi sandra (twenty-fo Branch ur) hours as needed for Constipati on. furosemide 2022- Yes [id number] 40mg Take 1 Univers 40 mg 02-19 tablet by ity of tablet 00:00: 05:59 mouth [place] 00 :00 every Medical morning Branch and evening for 30 days. furosemide 2022- Yes [id number] 40mg Take 1 Univers 40 mg 02-19 tablet by ity of tablet 00:00: 05:59 mouth [place] 00 :00 every Medical morning Branch and evening for 30 days. furosemide 2022- No [id number] 40mg Take 1 Univers 40 mg 02-19 tablet by ity of tablet 00:00: 00:00 mouth [place] 00 :00 every Medical morning Branch and evening for 30 days. furosemide 2022- No [id number] 40mg Take 1 Univers 40 mg 02-19 [...] Until Discontinu ed, Routine sulfur 2021-02- No [id number] 5mL 5 mL, Un araseli hexafluorid 02-17 9103 Intravenou i ty of e microsphr 15:00: 15:00 s, ONCE, 1 [place] (LUMASON) 00 :00 dose, On Medica l injection 5 Fri Branch mL 02/17/22 at 0900, Routine
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 approving Restricted medication : SRIRAM HEATH polyethylen 2021-02 Yes 17g 17 g, Unive rs e glycol 2-30 Oral, ity of 3350 powder 05:09: [id number], [place] 17 g 36 Starting Medical on [facility] Branch 02/16/22 at 2309, Until Discontinu ed, Routine, Constipati on phenytoin 2021-02 Yes 200mg 200 mg, Univ ers Extended 2-30 Oral, QHS, ity o f (DILANTIN 03:00: First [place] KAPSEAL) 00 on [facility] capsule 200 02/16/22 Bran ch mg at 2100, Until Discontinu ed, Routine insulin NPH 2021-02 Yes 15U 15 Units, U nivers (HUMULIN N) 2-30 Subcutaneo it y of injection 03:00: us, QHS[facility] First dose Medic al on [facility] 02/16/22 at 2100, Until Discontinu ed, Routine atorvastati 2021-02 Yes 40mg 40 mg, Univ ers n (LIPITOR) 2-30 Oral, QHS, it y of tablet 40 03:00: First dose [place] mg 00 on [facility] 02/16/22 Branch at 2100, Until Discontinu ed, Routine levETIRAcet 2021-02 Yes 500mg 500 mg, Un araseli am (KEPPRA) 2-30 Oral, BID, it y of tablet 500 02:00: First dose [place] mg 00 on [facility] 02/16/22 Branch at 2000, Until Discontinu ed, Routine apixaban 2021-02 Yes 1358 5mg 5 mg, Univers (ELIQUIS) 2-30 Oral, BID, ity of tablet 5 mg 02:00: First dose [place] 00 on [facility] 02/16/22 Branch at 2000, Until Discontinu [...] dose [place] XL) tablet 00 :05 on [facility] Medical 50 mg 02/16/22 Branch at 2000, Until Discontinu ed, Routine acetaminoph 2021-02 Yes 650mg 650 mg, Un araseli en Oral, ity of (TYLENOL) 23:02: Q6HPRN, [place] tablet 650 54 Starting Medic al mg [...] 02/16/22 at 1100, JACQUI semaglutide 0 Yes [id number] .25mg inject Univers (OZEMPIC) 8-17 0.25 mg ity of 0.25 mg or 00:00: under the [place] 0.5 mg(2 00 skin Medical mg/1.5 mL) weekly. Branch PnIj semaglutide Yes [id number] .25mg inject Univers (OZEMPIC) 8-17 0.25 mg ity of 0.25 mg or 00:00: under the [place] 0.5 mg(2 00 skin Medical mg/1.5 mL) weekly. Branch PnIj semaglutide 2021-0 Yes [id number] .25mg inject Univers (OZEMPIC) 8-17 0.25 mg ity of 0.25 mg or 00:00: under the [place] 0.5 mg(2 00 skin Medical mg/1.5 mL) weekly. Branch PnIj semaglutide 2021-0 Yes [id number] .25mg inject Univers (OZEMPIC) 8-17 0.25 mg ity of 0.25 mg or 00:00: under the [place] 0.5 mg(2 00 skin Medical mg/1.5 mL) weekly. Branch PnIj semaglutide 0 Yes [id number] .25mg inject Univers (OZEMPIC) 8-17 0.25 mg ity of 0.25 mg or 00:00: under the [place] 0.5 mg(2 00 skin Medical mg/1.5 mL) weekly. Branch PnIj semaglutide 0 Yes [id number] .25mg inject Univers (OZEMPIC) 8-17 0.25 mg ity of 0.25 mg or 00:00: under the [place] 0.5 mg(2 00 skin Medical mg/1.5 mL) weekly. Branch VickiIj semaglutide 0 Yes [id number] .25mg inject Univers (OZEMPIC) 8-17 0.25 mg ity of 0.25 mg or 00:00: under the [place] 0.5 mg(2 00 skin Medical mg/1.5 mL) weekly. Branch VickiIj semaglutide 2021-0 Yes [id number] .25mg inject Univers (OZEMPIC) 8-17 0.25 mg ity of 0.25 mg or 00:00: under the [place] 0.5 mg(2 00 skin Medical mg/1.5 mL) weekly. Branch VickiIj semaglutide 2021-0 Yes [id number] .25mg inject Univers (OZEMPIC) 8-17 0.25 mg ity of 0.25 mg or 00:00: under the [place] 0.5 mg(2 00 skin Medical mg/1.5 mL) weekly. Branch VickiIj semaglutide 2021-0 Yes [id number] .25mg inject Univers (OZEMPIC) 8-17 0.25 mg ity of 0.25 mg or 00:00: under the [place] 0.5 mg(2 00 skin Medical mg/1.5 mL) weekly. Branch PnIj semaglutide 2021-0 Yes [id number] .25mg inject Univers (OZEMPIC) 8-17 0.25 mg ity of 0.25 mg or 00:00: under the [place] 0.5 mg(2 00 skin Medical mg/1.5 mL) weekly. Branch PnIj semaglutide 2021-0 Yes [id number] .25mg inject Univers (OZEMPIC) 8-17 0.25 mg ity of 0.25 mg or 00:00: under the [place] 0.5 mg(2 00 skin Medical mg/1.5 mL) weekly. Branch PnIj semaglutide 2021-0 Yes [id number] .25mg inject Univers (OZEMPIC) 8-17 0.25 mg [...] capsules in the evening. amLODIPine 2022-0 Yes [id number] 10mg Take 1 U nivers 10 mg 6-13 tablet by ity of tablet 00:00: mouth [place] 00 daily. Medical Branch amLODIPine 2022-0 Yes [id number] 10mg Take 1 U nivers 10 mg 6-13 tablet by ity of tablet 00:00: mouth [place] 00 daily. Medical Branch amLODIPine 2022-0 Yes [id number] 10mg Take 1 U nivers 10 mg 6-13 tablet by ity of tablet 00:00: mouth [place] 00 daily. Medical Branch amLODIPine 2021-0 Yes [id number] 10mg Take 1 U nivers 10 mg 6-13 tablet by ity of tablet 00:00: mouth [place] 00 daily. Medical Branch amLODIPine 2021-0 Yes [id number] 10mg Take 1 U nivers 10 mg 6-13 tablet by ity of tablet 00:00: mouth [place] 00 daily. Medical Branch amLODIPine 2021-0 3- No [id number] 10mg Take 1 Univers 10 mg 6-13 01-10 tablet by ity of tablet 00:00: 00:00 mouth [place] 00 :00 daily. Medical Branch amLODIPine 2021-0 3- No [id number] 10mg Take 1 Univers 10 mg 6-13 [...] Indication s: atrial fibrillati on OXCARBAZEPI Yes [id number] TAKE 1 Univers [place] 150 mg 3-08 TABLET 2 X ity of tablet 00:00: A DAY FOR [place] 1 WEEK Medical THEN 2 Branch TABS 2X DAY FOR 1 WEEK 3 TABLES 2XADAY OXCARBAZEPI 2021-0 Yes [id number] TAKE 1 [facility] [place] 150 mg 3-08 TABLET 2 X ity of tablet 00:00: A DAY FOR [place] 1 WEEK Medical THEN 2 Branch TABS 2X DAY FOR 1 WEEK 3 TABLES 2XADAY OXCARBAZEPI 2021-0 Yes [id number] TAKE 1 [facility] [place] 150 mg 3-08 TABLET 2 X ity of tablet 00:00: A DAY FOR [place] 1 WEEK Medical THEN 2 Branch TABS 2X DAY FOR 1 WEEK 3 TABLES 2XADAY OXCARBAZEPI 2021-0 Yes [id number] TAKE 1 [facility] [place] 150 mg 3-08 TABLET 2 X ity of tablet 00:00: A DAY FOR [place] 1 WEEK Medical THEN 2 Branch TABS 2X DAY FOR 1 WEEK 3 TABLES 2XADAY OXCARBAZEPI 2021-0 Yes [id number] TAKE 1 [facility] [place] 150 mg 3-08 TABLET 2 X ity of tablet 00:00: A DAY FOR [place] 1 WEEK Medical THEN 2 Branch TABS 2X DAY FOR 1 WEEK 3 TABLES 2XADAY OXCARBAZEPI 2021-0 Yes [id number] TAKE 1 [facility] [place] 150 mg 3-08 TABLET 2 X ity of tablet 00:00: A DAY FOR [place] 1 WEEK Medical THEN 2 Branch TABS 2X DAY FOR 1 WEEK 3 TABLES 2XADAY OXCARBAZEPI 2021-0 Yes [id number] TAKE 1 [facility] [place] 150 mg 3-08 TABLET 2 X ity of tablet 00:00: A DAY FOR [place] 1 WEEK Medical THEN 2 Branch TABS 2X DAY FOR 1 WEEK 3 TABLES 2XADAY OXCARBAZEPI 2021-0 Yes [id number] TAKE 1 [facility] [place] 150 mg 3-08 TABLET 2 X ity of tablet 00:00: A DAY FOR [place] 00 1 WEEK Medical THEN 2 Branch TABS 2X DAY FOR 1 WEEK 3 TABLES 2XADAY OXCARBAZEPI 2022-0 Yes [id number] TAKE 1 [facility] [place] 150 mg 3-08 TABLET 2 X ity of tablet 00:00: A DAY FOR [place] 00 1 WEEK Medical THEN 2 Branch TABS 2X DAY FOR 1 WEEK 3 TABLES 2XADAY OXCARBAZEPI 2022-0 Yes [id number] TAKE 1 [facility] [place] 150 mg 3-08 TABLET 2 X ity of tablet 00:00: A DAY FOR [place] 00 1 WEEK Medical THEN 2 Branch TABS 2X DAY FOR 1 WEEK 3 TABLES 2XADAY OXCARBAZEPI 2-0 Yes [id number] TAKE 1 [facility] [place] 150 mg 3-08 TABLET 2 X ity of tablet 00:00: A DAY FOR [place] 00 1 WEEK Medical THEN 2 Branch TABS 2X DAY FOR 1 WEEK 3 TABLES 2XADAY OXCARBAZEPI 2-0 Yes [id number] TAKE 1 [facility] [place] 150 mg 3-08 TABLET 2 X ity of tablet 00:00: A DAY FOR [place] 00 1 WEEK Medical THEN 2 Branch TABS 2X DAY FOR 1 WEEK 3 TABLES 2XADAY OXCARBAZEPI 2022-0 Yes [id number] TAKE 1 [facility] [place] 150 mg 3-08 [...] 2 [place] tablet 06 (two) Medical times [place] daily. metoprolol 0 Yes 50mg Take 50 mg U nivers succinate 2-25 by mouth ity of XL 50 mg 24 10:14: daily. 1 [place] tablet 06 tablet Medical twice a Branch day at 6am and 6pm insulin NPH 0 Yes [id number] 10U inject Univers (NOVOLIN N 04-13 10-15 ity of NPH U-100 00:00: Units [place] INSULIN) 00 under the Medica l 100 unit/mL skin every Br anch injection evening. insulin NPH Yes [id number] 10U inject Univers (NOVOLIN N 04-13 10-15 ity of NPH U-100 00:00: Units [place] INSULIN) 00 under the Medica l 100 unit/mL skin every Br anch injection evening. insulin NPH Yes [id number] 10U inject Univers (NOVOLIN N 04-13 10-15 ity of NPH U-100 00:00: Units [place] INSULIN) 00 under the Medica l 100 unit/mL skin every Br anch injection evening. insulin NPH 3- No [id number] 10U inject Univers (NOVOLIN N 202-19 10-15 ity of NPH U-100 00:00: 00:00 Units [place] INSULIN) 00 :00 under the Medica l 100 unit/mL skin every Br anch injection evening. furosemide Yes [id number] 20mg Take 1 Univers 20 mg 1-27 tablet by ity of tablet 00:00: mouth [place] 00 daily. Medical Branch levETIRAcet 2021-0 Yes [id number] 500mg Take 1 Univers am 500 mg 1-27 tablet by ity o f tablet 00:00: mouth 2 [place] 00 (two) Medical times Branch daily. furosemide 2021-0 Yes [id number] 20mg Take 1 Univers 20 mg 1-27 tablet by ity of tablet 00:00: mouth [place] 00 daily. Medical Branch levETIRAcet 0 Yes [id number] 500mg Take 1 Univers am 500 mg 1-27 tablet by ity o f tablet 00:00: mouth (two) Medical times Branch daily. furosemide 2-0 Yes [id number] 20mg Take 1 Univers 20 mg 1-27 tablet by ity of tablet 00:00: mouth daily. Medical Branch levETIRAcet 2-0 Yes [id number] 500mg Take 1 Univers am 500 mg 1-27 tablet by ity o f tablet 00:00: mouth (two) Medical times Branch daily. levETIRAcet 2021-0 Yes [id number] 500mg Take 1 Univers am 500 mg 1-27 tablet by ity o f tablet 00:00: [facility] (two) Medical times Branch daily. levETIRAcet 2021-0 Yes [id number] 500mg Take 1 Univers am 500 mg 1-27 tablet by ity o f tablet 00:00: [facility] (two) Medical times Branch daily. levETIRAcet 2021-0 Yes [id number] 500mg Take 1 Univers am 500 mg 1-27 tablet by ity o f tablet 00:00: mouth (two) Medical times Branch daily. levETIRAcet 2021-0 Yes [id number] 500mg Take 1 Univers am 500 mg 1-27 tablet by ity o f tablet 00:00: [facility] (two) Medical times Branch daily. levETIRAcet 2021-0 Yes [id number] 500mg Take 1 Univers am 500 mg 1-27 tablet by ity o f tablet 00:00: [facility] (two) Medical times Branch daily. levETIRAcet 2021-0 Yes [id number] 500mg Take 1 Univers am 500 mg 1-27 tablet by ity o f tablet 00:00: mouth (two) Medical times Branch daily. levETIRAcet 2-0 Yes [id number] 500mg Take 1 Univers am 500 mg 1-27 tablet by ity o f tablet 00:00: mouth (two) Medical times Branch daily. levETIRAcet 2-0 Yes [id number] 500mg Take 1 Univers am 500 mg 1-27 tablet by ity o f tablet 00:00: mouth (two) Medical times Branch daily. levETIRAcet 2021-0 Yes [id number] 500mg Take 1 Univers am 500 mg 1-27 tablet by ity o f tablet 00:00: mouth 2 00 (two) Medical times Branch daily. levETIRAcet 2021-0 Yes [id number] 500mg Take 1 Univers am 500 mg 1-27 tablet by ity o f tablet 00:00: mouth 2 00 (two) Medical times Branch daily. furosemide 0 3- No [id number] 20mg Take 1 Univers 20 mg 1-27 02-19 tablet by ity of tablet 00:00: 00:00 mouth [place] 00 :00 daily. Medical Branch pantoprazol 0 Yes [id number] 40mg Take 1 Univers e 40 mg EC 1-21 tablet by ity of tablet 00:00: mouth [place] 00 daily. Medical Branch pantoprazol 0 Yes [id number] 40mg Take 1 Univers e 40 mg EC 1-21 tablet by ity of tablet 00:00: mouth [place] 00 daily. Medical Branch pantoprazol 0 Yes [id number] 40mg Take 1 Univers e 40 mg EC 1-21 tablet by ity of tablet 00:00: mouth [place] 00 daily. Medical Branch pantoprazol 0 Yes [id number] 40mg Take 1 Univers e 40 mg EC 1-21 tablet by ity of tablet 00:00: mouth [place] 00 daily. Medical Branch pantoprazol 0 Yes [id number] 40mg Take 1 Univers e 40 mg EC 1-21 tablet by ity of tablet 00:00: mouth [place] 00 daily. Medical Branch pantoprazol 2021-0 Yes [id number] 40mg Take 1 Univers e 40 mg EC 1-21 tablet by ity of tablet 00:00: mouth [place] 00 daily. Medical Branch pantoprazol 2021-0 Yes [id number] 40mg Take 1 Univers e 40 mg EC 1-21 tablet by ity of tablet 00:00: mouth [place] 00 daily. Medical Branch pantoprazol 0 Yes [id number] 40mg Take 1 Univers e 40 mg EC 1-21 tablet by ity of tablet 00:00: mouth [place] 00 daily. Medical Branch pantoprazol 2021-0 Yes [id number] 40mg Take 1 Univers e 40 mg EC 1-21 tablet by ity of tablet 00:00: mouth [place] 00 daily. Medical Branch pantoprazol 0 Yes [id number] 40mg Take 1 Univers e 40 mg EC 1-21 tablet by ity of tablet 00:00: mouth [place] 00 daily. Medical Branch pantoprazol 0 Yes [id number] 40mg Take 1 Univers e 40 mg EC 1-21 tablet by ity of tablet 00:00: mouth [place] 00 daily. Medical Branch pantoprazol 0 Yes [id number] 40mg Take 1 Univers e 40 mg EC 1-21 tablet by ity of tablet 00:00: mouth [place] 00 daily. Medical Branch pantoprazol Yes [id number] 40mg Take 1 Univers e 40 mg EC 1-21 tablet by ity of tablet 00:00: mouth [place] 00 daily. Medical Branch atorvastati 2020-02 Yes [id number] 40mg Take 1 Univers n 40 mg 2-14 tablet by ity of tablet 00:00: mouth at [place] 00 bedtime. Medical Branch insulin 2020-02 Yes 8U inject 8 Univer s regular 2-14 Units ity of human 00:00: under the [place] (NOVOLIN R 00 skin Medical REGULAR daily. Branch U-100 Daily at [facility]) 100 noon unit/mL injection atorvastati 2020-02 Yes [id number] 40mg Take 1 Univers n 40 mg 2-14 tablet by ity of tablet 00:00: mouth at [place] 00 bedtime. Medical Branch insulin 2020-02 Yes 8U inject 8 Univer s regular 2-14 Units ity of human 00:00: under the [place] (NOVOLIN R 00 skin Medical REGULAR daily. Branch U-100 Daily at [facility]) 100 noon unit/mL injection atorvastati 2020-02 Yes [id number] 40mg Take 1 Univers n 40 mg 2-14 tablet by ity of tablet 00:00: mouth at [place] 00 bedtime. Medical Branch insulin 2020-02 Yes 8U inject 8 Univer s regular 2-14 Units ity of human 00:00: under the [place] (NOVOLIN R 00 skin Medical REGULAR daily. Branch U-100 Daily at [facility]) 100 noon unit/mL injection atorvastati 2020-02 Yes [id number] 40mg Take 1 Univers n 40 mg 2-14 tablet by ity of tablet 00:00: mouth at [place] 00 bedtime. Medical Branch atorvastati 2020-02 Yes [id number] 40mg Take 1 Univers n 40 mg 2-14 tablet by ity of tablet 00:00: mouth at [place] [address] bedtime. Medical Branch atorvasta 2020-02 Yes [id number] 40mg Take 1 Univers n 40 mg 2-14 tablet by ity of tablet 00:00: mouth at [place] [address] bedtime. Medical Branch atorvasta 2020-02 Yes [id number] 40mg Take 1 Univers n 40 mg 2-14 tablet by ity of tablet 00:00: mouth at [place] [address] bedtime. Medical [facility]02 Yes [id number] 40mg Take 1 Univers n 40 mg 2-14 tablet by ity of tablet 00:00: mouth at [place] [address] bedtime. Medical Branch [facility]02 Yes [id number] 40mg Take 1 Univers n 40 mg 2-14 tablet by ity of tablet 00:00: mouth at [place] [address] bedtime. Medical Branch [facility] 2020-02 Yes [id number] 40mg Take 1 Univers n 40 mg 2-14 tablet by ity of tablet 00:00: mouth at [place] [address] bedtime. Medical Branch [facility] 2020-02 Yes [id number] 40mg Take 1 Univers n 40 mg 2-14 tablet by ity of tablet 00:00: mouth at [place] [address] bedtime. Medical Branch [facility]-02 Yes [id number] 40mg Take 1 Univers n 40 mg 2-14 tablet by ity of tablet 00:00: mouth at [place] [address] bedtime. Medical Branch [facility] 2020-02 Yes [id number] 40mg Take 1 Univers n 40 mg 2-14 tablet by ity of tablet 00:00: mouth at [place] [address] bedtime. Medical Branch insulin 2020-02- No 8U inject 8 Unive rs regular 2-14 - Units ity of human 00:00: 00:00 under the [place] (NOVOLIN R 00 :00 skin Medical REGULAR daily. Branch U-100 Daily at [facility]) 100 noon unit/mL injection Blood-Gluco Yes Check Appingtone rs se Meter 5-15 glucose ity of Kit 00:00: once daily [place] 00 before Medical breakfast; Branch Diagnosis code E11.9 blood sugar Yes Check Appingtone rs diagnostic 5-15 glucose ity of (BLOOD [...] Immunizations Ordered Filled Immunization Date Status Comments [facility] e Immunization Name Name Influenza Virus [...] Completed Unive rsity of MODERNA 0.25ML 00:00:00 [facility] [place] [facility] sandra BOOSTER VACCINE Branch SARS-COV-2 COVID-19 2021-01-31 Completed Unive rsity of MODERNA 0.25ML 00:00:00 [facility] [place] [facility] sandra BOOSTER VACCINE Branch SARS-COV-2 COVID-19 2021-01-31 Completed Unive rsity of MODERNA 0.25ML 00:00:00 [facility] [place] [facility] sandra BOOSTER VACCINE Branch Influenza Virus 2020-12-03 [...] Completed Universit y of Conjugate, PCV13 00:00:00 [facility] dical (Prevnar 13) Branch Pneumococcal 13 2019-12-19 Completed Universit y of Conjugate, PCV13 00:00:00 [facility] dical (Prevnar 13) Branch Pneumococcal 13 2019-12-19 Completed Universit y of Conjugate, PCV13 00:00:00 [facility] dical (Prevnar 13) Branch Pneumococcal 13 2019-12-19 [...] Completed Universit y of Conjugate, PCV13 00:00:00 [facility] dical (Prevnar 13) Branch Pneumococcal 13 2019-12-19 Completed Universit y of Conjugate, PCV13 00:00:00 [place] [facility] dical (Prevnar 13) Branch Pneumococcal 13 2019-12-19 Completed Universit y of Conjugate, PCV13 00:00:00 [facility] dical (Prevnar 13) Branch Pneumococcal 13 2019-12-19 Completed Universit y of Conjugate, PCV13 00:00:00 [facility] dical (Prevnar 13) Branch Influenza Virus 2019-11-22 Completed Universit y of Vaccine Recomb Quad 00:00:00 [place] Medical IM, Preserv and ABX Branc h Free 18-64 YRS Influenza Virus 2019-11-22 Completed Universit y of Vaccine Recomb Quad 00:00:00 [place] Medical IM, Preserv and ABX Branc h Free 18-64 YRS Influenza Virus 2019-11-22 Completed Universit y of Vaccine Recomb Quad 00:00:00 [place] Medical IM, Preserv and ABX Branc h Free 18-64 YRS Influenza Virus 2019-11-22 Completed Universit y of Vaccine Recomb Quad 00:00:00 [place] Medical IM, Preserv and ABX Branc h Free 18-64 YRS Influenza Virus 2019-11-22 Completed Universit y of Vaccine Recomb Quad 00:00:00 [place] Medical IM, Preserv and ABX Branc h [...] Dosage 2018-03-25 Completed Unive rsity of 00:00:00 [place] [facility] HEP B, Adult Dosage 2018-03-25 Completed Unive rsity of 00:00:00 [facility] Branch HEP B, Adult Dosage 2018-03-25 Completed Unive rsity of 00:00:00 [place] [facility] HEP B, Adult Dosage 2018-03-25 Completed Unive rsity of 00:00:00 [place] [facility] HEP B, Adult Dosage 2018-03-25 Completed Unive rsity of 00:00:00 [place] [facility] HEP B, Adult Dosage 2018-03-25 Completed Unive rsity of 00:00:00 [place] [facility] HEP B, Adult Dosage 2018-03-25 Completed Unive rsity of 00:00:00 [facility] Branch HEP B, Adult Dosage 2018-03-25 Completed Unive rsity of 00:00:00 [place] [facility] HEP B, Adult Dosage 2018-03-25 [...] Dosage 2017-09-05 Completed Unive rsity of 00:00:00 [place] [facility] HEP B, Adult Dosage 2017-09-05 Completed Unive rsity of 00:00:00 [facility] Pneumococcal 13 2015-02-19 Completed Universit [...] 14:28:00 128 mm[Hg] Univer sity of pressure [place] [facility] Diastolic blood 2022-03-16 14:28:00 70 mm[Hg] Unive rsity of pressure [place] [facility] Heart rate 2022-03-16 14:28:00 93 /min Universi ty of [place] [facility] Body temperature 2022-03-16 14:28:00 35.67 Lizz Univ ersity of [place] [facility] Respiratory rate 2022-03-16 14:28:00 17 /min Univ ersity of [place] [facility] Body weight 2022-03-16 14:28:00 81.058 kg Universi ty of [place] [facility] BMI 2022-03-16 14:28:00 34.90 kg/m2 Universi ty of [place] [facility] Oxygen saturation in 2022-03-16 14:28:00 98 /min University of Arterial blood by [place] [employer] sandra Pulse oximetry Branch Systolic blood 2022-03-14 19:37:00 138 mm[Hg] Univer sity of pressure [place] [facility] Diastolic blood 2022-03-14 19:37:00 87 mm[Hg] Unive rsity of pressure [place] [facility] Heart rate 2022-03-14 19:37:00 94 /min Universi ty of [place] [facility] Respiratory rate 2022-03-14 19:37:00 20 /min Univ ersity of [place] [facility] Body height 2022-03-14 19:37:00 152.4 cm Universi ty of [place] [facility] Body weight 2022-03-14 19:37:00 80.74 kg Universi ty of [place] [facility] BMI 2022-03-14 19:37:00 34.76 kg/m2 Universi ty of [place] [facility] Oxygen saturation in 2022-03-14 19:37:00 99 /min University of Arterial blood by [employer] sandra Pulse oximetry Branch Systolic blood 2022-02-28 14:57:00 130 mm[Hg] Univer sity of pressure [place] [facility] Diastolic blood 2022-02-28 14:57:00 83 mm[Hg] Unive rsity of pressure [place] [facility] Heart rate 2022-02-28 14:57:00 117 /min Universi ty of [place] [facility] Respiratory rate 2022-02-28 14:57:00 20 /min Univ ersity of [place] [facility] Body height 2022-02-28 14:57:00 152.4 cm Universi ty of [place] [facility] Body weight 2022-02-28 14:57:00 80.377 kg Universi ty of [place] [facility] BMI 2022-02-28 14:57:00 34.61 kg/m2 Universi ty of [place] [facility] Oxygen saturation in 2022-02-28 14:57:00 99 /min University of Arterial blood by [facility] Pulse oximetry Branch Systolic blood 2022-02-19 17:58:00 140 mm[Hg] Univer sity of pressure [place] [facility] Diastolic blood 2022-02-19 17:58:00 95 mm[Hg] Unive rsity of pressure [place] [facility] Heart rate 2022-02-19 17:58:00 115 /min Universi ty of [place] [facility] Body temperature 2022-02-19 13:46:00 36.78 Lizz Univ ersity of [place] [facility] Respiratory rate 2022-02-19 13:46:00 18 /min Univ ersity of [place] [facility] Oxygen saturation in 2022-02-19 13:46:00 94 /min University of Arterial blood by [facility] Pulse oximetry Branch Body weight 2022-02-18 10:44:00 83.462 kg Universi ty of [place] [facility] BMI 2022-02-18 10:44:00 35.94 kg/m2 Universi ty of [place] [facility] Systolic blood 2022-02-16 16:07:00 116 mm[Hg] Univer sity of pressure [place] [facility] Diastolic blood 2022-02-16 16:07:00 71 mm[Hg] Unive rsity of pressure [place] [facility] Heart rate 2022-02-16 16:07:00 85 /min Universi ty of [place] [facility] Body temperature 2022-02-16 16:07:00 36.89 Lizz Univ ersity of [place] [facility] Respiratory rate 2022-02-16 16:07:00 17 /min Univ ersity of [place] [facility] Body weight 2022-02-16 16:07:00 84.823 kg Universi ty of [place] [facility] BMI 2022-02-16 16:07:00 36.52 kg/m2 Universi ty of [place] [facility] Oxygen saturation in 2022-02-16 16:07:00 96 /min [facility] Arterial blood by [facility] Pulse oximetry Branch Systolic blood 2021-10-05 15:13:00 152 mm[Hg] Univer [facility] Diastolic blood 2021-10-05 15:13:00 77 mm[Hg] Unive [facility] Body height 2021-10-05 15:12:00 152.4 cm [facility] Body weight 2021-10-05 15:12:00 88.315 kg [facility] BMI 2021-10-05 15:12:00 38.02 kg/m2 [facility] Procedures Procedure Date / Time Performing Clinician Source Performed FLU 2022-03-16 14:43:42 Kia [facility] VACC(),65+YR,0.5 Medica l Branch ML,IM,ADJUVANTED,QUAD(FLU AD) POCT GLUCOSE (AUTOMATED) 2022-02-19 17:59:00 Brii Samson [facility] XR CHEST 2 VW 2022-02-19 16:23:57 Sriram [facility] POCT GLUCOSE (AUTOMATED) 2022-02-19 13:45:00 Brii Samson [facility] MAGNESIUM 2022-02-19 12:23:00 Rocael Vaughan [facility] BASIC METABOLIC PANEL 2022-02-19 12:23:00 Rocael Vaughan [facility] (NA, K, CL, CO2, GLUCOSE, Medica l Branch BUN, CREATININE, CA) CBC WITH DIFF 2022-02-19 12:23:00 Rocael Vaughan [facility] N-TERMINAL PRO-BNP 2022-02-19 12:23:00 Rocael [facility] POCT GLUCOSE (AUTOMATED) 2022-02-19 07:07:00 Brii Samson [facility] POCT GLUCOSE (AUTOMATED) 2022-02-19 06:10:00 Brii Samson [facility] POCT GLUCOSE (AUTOMATED) 2022-02-19 03:34:00 Brii Samson [facility] POCT GLUCOSE (AUTOMATED) 2022-02-18 23:14:00 Brii Samson [facility] POCT GLUCOSE (AUTOMATED) 2022-02-18 17:29:00 Brii Samson [facility] POCT GLUCOSE (AUTOMATED) 2022-02-18 13:40:00 Brii Samson [facility] BASIC METABOLIC PANEL 2022-02-18 10:53:[address] [facility] (NA, K, CL, CO2, GLUCOSE, Medica l Branch BUN, CREATININE, CA) LIPID PANEL ([id number])(TOTAL 2022-02-18 10:53:00 Alexus [facility] CHOLESTEROL, [facility] Branch TRIGLYCERIDES, HDL) CBC WITH DIFF 2022-02-18 10:53:00 Alexus [facility] N-TERMINAL PRO-BNP 2022-02-18 10:53:00 Rocael [facility] POCT GLUCOSE (AUTOMATED) 2022-02-18 02:34:00 [facility] 2022-02-17 22:16:00 [facility] 2022-02-17 17:45:00 [facility] ([facility]OMATED) 2022-02-17 14:01:00 [facility] TRAN[facility] (TTE) 2022-02-17 13:56:00 Chapin [facility] COMPLETE W/ CONTRAST Medical Bra nch MAGNESIUM 2022-02-17 09:47:00 Chapin Brii [facility] BASIC METABOLIC PANEL 2022-02-17 09:47:00 Chapin [facility] (NA, K, CL, CO2, GLUCOSE, Medica l Branch BUN, CREATININE, CA) N-TERMINAL PRO-BNP 2022-02-17 09:47:00 Chapin Brii [facility] POCT GLUCOSE (AUTOMATED) 2022-02-17 03:55:00 Brii Samson [facility] POCT GLUCOSE (AUTOMATED) 2022-02-17 03:16:00 Brii Samson [facility] URINALYSIS 2022-02-16 18:07:00 Bird [facility] XR CHEST 1 VW 2022-02-16 17:06:49 Bird [facility] LIPASE 2022-02-16 16:59:00 Bird [facility] TROPONIN I 2022-02-16 16:59:00 Bird [facility] HEPATIC FUNCTION PANEL 2022-02-16 16:59:00 Bird [facility] ([id number]) (ALB,T.PRO,BILI [facility] T,BU/BC,ALT,AST,ALK PHOS) BASIC METABOLIC PANEL 2022-02-16 16:59:00 Bird [facility] (NA, K, CL, CO2, GLUCOSE, Medica l Branch BUN, CREATININE, CA) CBC WITH DIFF 2022-02-16 16:59:00 Bird [facility] GLYCOSYLATED HEMOGLOBIN 2022-02-16 16:59:00 Chapin [facility] (A1C) [facility] N-TERMINAL PRO-BNP 2022-02-16 16:59:00 Bird [facility] COVID-19 (ID NOW RAPID 2022-02-16 16:59:00 Bird [facility] TESTING) Medical Branch LAB ONLY COVID 2022-02-16 16:59:00 Bird [facility] INTERPRETATION [facility] HB ECG ROUTINE & RHYTHM 2022-02-16 16:52:36 Bird [facility] CONSENT/REFUSAL FOR 2022-02-16 16:40:37 Doctor Unassigned, [facility] DIAGNOSIS AND TREATMENT [place] [facility] POCT HEMOGLOBIN A1C TEST 2021-10-05 15:15:00 [facility] Start End Encounter Admission Attending Care Care Encounter Source Date/Time Date/Time Type Type Clinicians Facility Department ID 2020-12-17 Emergency [facility] [id number] Univers 21:39:43 ity of [facility] 2020-12-17 Inpatient U [facility] [id number] Univers 18:26:55 alvino BARAKAT o maine [facility] 2020-12-17 Emergency [facility] [id number] Univers 16:06:19 ity of [facility] 2022-06-15 2022-06-15 Outpatient Moustapha ADAM [facility] [id number] Univers 09:00:00 09:00:00 SILVERIO ity of [facility] 2022-04-27 2022-04-27 [id number] Univers 10:20:00 10:20:00 SRIRAM de oliveira o f [facility] 2022-03-27 2022-03-27 [facility] [id number] Univers 00:00:00 00:00:00 Sriram PALOMO [id number] ity of [id number] [id number] Co dical NAL 0[address] [facility] 2022-03-22 2022-03-22 Instructional Design Specialist 2, Adc Lab [facility] [id number] Univers 08:00:00 08:15:00 Visit Silverio Adam [id number] ity of [facility] [id number] [id number] Co dical NAL 353 [facility] 2022-03-22 2022-03-22 Outpatient Moustapha ADAM [facility] [id number] Univers 08:00:00 08:00:00 SILVERIO ity of [facility] 2022-03-16 2022-03-16 Outpatient Moustapha ADAM [facility] [id number] Univers 08:40:00 09:58:33 SILVERIO ity of [place] [facility] 2022-03-16 2022-03-16 Office [facility] [id number] Univers 08:40:00 09:00:00 Visit Silverio PALOMO 350.1.13.10 i ty of [facility] [place] [phone] Co dical NAL 9 [facility] 2022-03-14 2022-03-14 Office [facility] 1.2.840.114 [id number] Univers 13:40:00 14:00:00 Visit Sriram PALOMO 350.1.13.10 ity of [facility] 4.[place] [phone] Co dicmt NAL [address] [place] [address] 2022-03-14 2022-03-14 [facility] [id number] Univers 13:40:00 13:40:00 SRIRAM de oliveira o [facility] 2022-03-09 2022-03-09 [facility] [id number] Univers 09:59:09 23:59:00 SILVERIO ity [facility] 2022-02-28 2022-02-28 Outpatient R [facility] [id number] Univers 09:00:00 09:16:53 SRIRAM de oliveira o [facility] 2022-02-28 2022-02-28 Office [facility] 1.2.840.114 [id number] Univers 09:00:00 09:16:53 Visit Sriram PALOMO 350.1.13.10 ity of [facility] 4.[place] [phone] Co dical NAL 9 [facility] 2022-02-21 2022-02-21 Transition JONO Galvan 1.2.840.114 [id number] Univers 00:00:00 00:00:00 of Care Nara MG 350.1.13.10 it y [place] [id number] [address] 2022-02-16 2022-02-19 Inpatient X CHAPIN [facility] SAMI [id number] Univers 10:48:00 16:07:00 [facility] 2022-02-16 2022-02-19 Hospital Marina Pang [facility] 1.2.840.11 [id number] Univers 10:48:00 16:07:00 Encounter Brii Samson [place] 350.1.13.10 ity [facility] 4.2.7.2.686 [facility] [id number] [address] 2022-02-16 2022-02-16 Eusebio Fang Perez [facility] 1.2.840.114 [id number] Univers 09:45:00 10:05:00 Care Unknown, Attending [facility] 350.1.13.10 ity [facility] 4.2.7.2.686 Bernabe as HUMPHREY?BLEA [phone] [address] MEDICAL OFFICE BUILDING 2022-02-16 2022-02-16 Outpatient R CASSI [facility] [id number] Univers 09:45:00 09:45:00 FANG [facility] 2022-01-31 2022-01-31 Outpatient R KUMAR [facility] [id number] Univers 14:20:00 14:20:00 SRIRAM diamond [facility] 2022-01-31 2022-01-31 Outpatient R KUMAR [facility] [id number] Univers 14:20:00 14:20:00 SRIRAM de oliveira o [facility] 2021-12-02 2021-12-02 Outpatient R KIA [facility] [id number] Univers 10:20:00 10:20:00 SILVERIO itkelsie [facility] 2021-11-25 2021-11-25 Outpatient R KIA [facility] [id number] Univers 10:20:00 10:20:00 SILVERIO itkelsie [facility] 2021-11-25 2021-11-25 Outpatient R KIA [facility] [id number] Univers 10:20:00 10:20:00 SILVERIO itkelsie [facility] 2021-10-05 2021-10-05 Outpatient R AMITA GOMEZ [facility] [id number] Univers 10:30:00 11:22:11 AMITA GOMEZ ity [facility] 2021-10-05 2021-10-05 Office Amita Gomez [facility] 1.2.840.114 [id number] Univers 10:30:00 11:22:11 Visit HEALTH 350.1.13.10 it y of [facility] 4.2.7.2.686 Bernabe as HUMPHREY?BLEA [phone] [address] OFFICE [facility] 2021-09-21 2021-09-21 Telephone [facility] 1.2.127.969 [id number] Univers 00:00:00 00:00:00 Wentong [facility] 350.1.13.10 it y of [place] 4.2.7.2.686 Bernabe as HUMPHREY?BLEA [phone] [address] OFFICE [facility] 2021-08-19 2021-08-19 Outpatient R KIA [facility] [id number] Univers 11:20:00 11:20:00 SILVERIO [facility] 2021-08-16 2021-08-16 Outpatient R TIN [facility] [id number] Univers 13:00:00 13:00:00 [facility] 2021-08-01 2021-08-01 Office [facility] 1.2.840.114 [id number] Univers 13:40:00 14:02:37 Visit [facility] 350.1.13.10 ity [facility] 4.2.7.2.[place] [phone] Co dical NAL 059 [facility] 2021-08-01 2021-08-01 Out[facility] [id number] Univers 13:40:00 14:02:37 DIMITRIZECHARIAH alvino o [facility] 2021-08-01 2021-08-01 Outpatient R KUMAR [facility] [id number] Univers 13:40:00 13:40:00 SRIRAM de oliveira o [facility] 2021-08-01 2021-08-01 Out[facility] [id number] Univers 13:40:00 13:40:00 SRIRAM ity o f [facility] 2021-08-01 2021-08-01 Outpatient R KUMAR, [facility] [id number] Univers 13:40:00 13:40:00 QIACHAIM ity o f [facility] 2021-08-01 2021-08-01 Outpatient R KUMAR, [facility] [id number] Univers 13:40:00 13:40:00 SRIRAM ity o [facility] 2021-07-22 2021-07-22 Refill Kumar, [facility] 1.2.840.114 [id number] Univers 00:00:00 00:00:00 [facility] 350.1.13.10 ity [facility] [place].2.[place] [phone] [address] 2021-06-24 2021-06-24 Outpatient R KIA, [facility] [id number] Univers 10:00:00 10:46:29 [facility] 2021-06-24 2021-06-24 Office [facility] 1.2.840.114 [id number] Univers 10:00:00 10:20:[address] [facility] 350.1.13.10 i ty [facility] 4.2.[place].2.[place] [phone] [address] 2021-06-24 2021-06-24 Outpatient R KIA, [facility] [id number] Univers 10:00:00 10:00:00 SILVERIO ity [facility] 2021-06-24 2021-06-24 Outpatient R SEWANI, [facility] [id number] Univers 10:00:00 10:00:00 SILVERIO ity [facility] 2021-06-10 2021-06-10 [facility] [id number] Univers 10:46:49 23:59:00 SILVERIO ity [facility] 2021-05-23 2021-05-23 Outpatient R KUMAR, [facility] [id number] Univers 15:00:00 15:00:00 QIACHAIM ity o [facility] 2021-05-04 2021-05-04 Outpatient R KUMAR, [facility] [id number] Univers 08:00:00 23:59:00 SRIRAM grove [facility] 2021-05-04 2021-05-04 Outpatient R KUMAR, [facility] [id number] Univers 08:00:00 08:00:00 SRIRAM grove [facility] 2021-04-28 2021-04-28 Outpatient R BROOKS [facility] [id number] Univers 13:00:00 14:03:10 DIANN de oliveira [facility] 2021-04-28 2021-04-28 Office [facility] 1.2.945.049 [id number] Univers 13:00:00 14:03:10 Visit Diann DEWEY 350.1.13.10 i ty [facility] 4.2.7.2.[place] [facility] [phone] Co dical NAL 188 [facility] 2021-04-22 2021-04-22 Outpatient MITCHELL TORRES [facility] [id number] Univers 15:40:00 15:40:00 MITCHELL GARCIA [facility] 2021-04-22 2021-04-22 Outpatient MITCHELL TORRES [facility] [id number] Univers 15:40:00 15:40:00 MITCHELL GARCIA [facility] 2021-04-22 2021-04-22 Outpatient MITCHELL TORRES [facility] [id number] Univers 15:40:00 15:40:00 JOSEMITCHELL GRIFFIN [facility] 2021-04-18 2021-04-19 Emergency X VALERIE, [facility] ERT [id number] Univers 22:42:00 02:27:00 BERNIEMARKUS [facility] 2021-04-18 2021-04-19 Emergency Valerie, [facility] 1.2.840.114 [id number] Univers 22:42:00 02:27:00 Celia PALOMO 350.1.13.10 ity [facility] [place].2.7.2.[place] [phone] [address] 2021-04-18 2021-04-19 Emergency X VALERIE, [facility] ERT [id number] Univers 22:42:00 02:27:00 FOLUSHO ity of [facility] 2021-04-18 2021-04-18 Orders Doctor MILLAN 1.2.840.114 [id number] Univers 00:00:00 00:00:00 Only Unassigned, CARLOS 350.1.13.10 ity of [place] [facility] 4.2.7.2.686 Bernabe as [phone] [facility] [address] 2021-04-15 2021-04-15 Hospital [facility] 1.2.863.584 [id number] Univers 12:42:22 23:59:00 Encounter Wondiful Lauryn PALOMO 350.1.13.10 ity of [place].2.[place] [phone] [facility] [address] 2021-04-15 2021-04-15 [facility] [id number] Univers 10:00:00 10:33:44 SRIRAM de oliveira o f [facility] 2021-04-15 2021-04-15 Office [facility] 1.2.840.114 [id number] Univers 10:00:00 10:33:44 Visit Sriram PALOMO 350.1.13.10 ity [facility] 4.2.7.2.[place] [facility] [phone] Co dical [facility] 0[address] [facility] 2021-04-15 2021-04-15 [facility] [id number] Univers 10:00:00 10:33:44 SRIRAM de oliveira o f [facility] 2021-04-15 2021-04-15 Outpatient [facility] [id number] Univers 00:00:00 00:00:00 WONDIFUL alvino o f [facility] 2021-04-15 2021-04-15 Orders Doctor MILLAN 1.2.840.114 [id number] Univers 00:00:00 00:00:00 Only Unassigned, CARLOS 350.1.13.10 ity of [place] [facility] 4.2.7.2.686 Bernabe as [phone] [facility] [address] 2021-04-13 2021-04-13 Outpatient R TIN [facility] [id number] Univers 10:00:00 11:12:56 [facility] [place] 2021-04-13 2021-04-13 Office [facility] 1.2.840.114 [id number] Univers 10:00:00 11:12:56 [facility] 350.1.13.10 it y [facility] 4.2.7.2.686 Bernabe as HUMPHREY?BLEA [phone] Co dical KNEY [address] MEDICAL OFFICE BUILDING 2021-04-13 2021-04-13 Outpatient R TIN [facility] [id number] Univers 10:00:00 11:12:56 [facility] [place] 2021-04-13 2021-04-13 Outpatient R TIN [facility] [id number] Univers 10:00:00 10:00:00 [facility] [place] 2021-04-13 2021-04-13 Outpatient R TIN [facility] [id number] Univers 10:00:00 10:00:00 [facility] [place] 2021-04-13 2021-04-13 Outpatient R TIN [facility] [id number] Univers 10:00:00 10:00:00 [facility] [place] 2021-04-12 2021-04-12 Nurse YANA Sanders 1.2.873.904 [id number] Univers 00:00:00 00:00:00 Triage Luis Alberto CARLOS 350.1.13.10 it y of [facility] 4.2.7.2.686 Bernabe as [phone] [facility] [address] 2021-04-07 2021-04-07 Telephone Kumar NEJENNI 1.2.948.983 [id number] Univers 00:00:00 00:00:00 Sriram PALOMO 350.1.13.10 ity [facility] 4.2.7.2.[place] [phone] Co dical NAL 059 [facility] 2021-04-01 2021-04-01 Outpatient R KIA [facility] [id number] Univers 10:00:00 10:40:52 SILVERIO ity of [facility] 2021-04-01 2021-04-01 Office [facility] 1.2.840.114 [id number] Univers 10:00:00 10:40:52 Visit Silverio SHISHMAREF 350.1.13.10 i ty of [place] 4.2.7.2.[place] [phone] Co sherif [facility] 059 [facility] 2021-03-30 2021-03-30 Telephone [facility] 1.2.840.114 [id number] Univers 00:00:00 00:00:00 [facility] 350.1.13.10 ity of [place] 4.2.7.2.686 Bernabe as HUMPHREY?BLEA [phone] Co sherif STARKS [address] [place] [address] OFFICE [facility] 2021-03-30 2021-03-30 Telephone [facility] 1.2.840.114 [id number] Univers 00:00:00 00:00:00 [facility] 350.1.13.10 ity of [place] 4.2.7.2.686 Bernabe as HUMPHREY?BLEA [phone] [address] OFFICE [facility] 2021-03-29 2021-03-29 Outpatient MITCHELL TORRES [facility] [id number] Univers 08:00:00 09:38:08 MITCHELL GARCIAkelsie [facility] 2021-03-29 2021-03-29 Outpatient MITCHELL TORRES [facility] [id number] Univers 08:00:00 09:38:08 MITCHELL GARCIA [facility] 2021-03-29 2021-03-29 Outpatient MITCHELL TORRES [facility] [id number] Univers 08:00:00 08:00:00 MITCHELL GARCIA kelsie [facility] 2021-03-29 2021-03-29 Orders Doctor MILLAN 1.2.840.114 [id number] Univers 00:00:00 00:00:00 Only Unassigned, CARLOS 350.1.13.10 [facility] [place] [facility] 4.2.7.2.686 Bernabe as [phone] Medi sandra [address] 2021-03-23 2021-03-23 [facility] [id number] Univers 15:40:00 16:06:08 SRIRAM de oliveira o f [facility] 2021-03-23 2021-03-23 Office [facility] 1.2.840.114 [id number] Univers 15:40:00 16:06:08 Visit Sriram PAL[place] 350.1.13.10 ity [facility] 4.2.7.2.[place] [phone] Co dical NAL 059 [facility] 2021-03-23 2021-03-23 Out[facility] [id number] Univers 16:00:00 16:00:00 SRIRAM de oliveira o maine [facility] 2021-03-22 2021-03-22 Telephone [facility] 1.2.840.114 [id number] Univers 00:00:00 00:00:00 Diann PALOMO 350.1.13.10 i ty [facility] 4.2.7.2.[place] [phone] Co dical NAL 188 [facility] 2021-03-21 2021-03-21 Instructional Design Specialist [place], Luís Lab Main [facility] 1.2.8 40.114 [id number] Univers 14:45:00 15:00:00 Visit Ortega Dorsey 350.1 .13.10 ity [facility] 4.2.7.2.[place] [phone] Co dical NAL 353 [facility] 2021-03-21 2021-03-21 Outpatient R WILLIAN [facility] [id number] Univers 14:45:00 14:45:00 CHEN martykelsie [facility] 2021-03-21 2021-03-21 Outpatient R [facility] [id number] Univers 14:45:00 14:45:00 [facility] 2021-03-21 2021-03-21 Orders Doctor MILLAN 1.2.840.114 [id number] Univers 00:00:00 00:00:00 Only Unassigned, CARLOS 350.1.13.10 ity of [place] [facility] 4.2.7.2.686 Bernabe as [phone] [facility] [address] 2021-03-21 2021-03-21 Telephone GLENNA Dorsey 1.2.840.114 [id number] Univers 00:00:00 00:00:00 [facility] Kelsie [facility] 350.1.13.10 i ty of [facility] [address] 4.2.7.2.686 [place] [phone] [facility] [address] 2021-03-20 2021-03-20 Nurse YANA Bautista 1.2.840.114 [id number] Univers 00:00:00 00:00:00 Triage Cielo RENEE 350.1.13.10 it y of [facility] 4.2.7.2.686 Bernabe as [id number] [facility] [address] 2021-03-18 2021-03-18 Emergency [facility] 1.2.840.114 [id number] Univers 17:02:00 22:45:00 Ananya PALOMO 350.1.13.10 ity of [place] 4.2.7.2.[place] [phone] [facility] [address] 2021-03-18 2021-03-18 Emergency X [facility] ERT [id number] Univers 17:02:00 17:02:00 ANANYA de oliveira [facility] 2021-03-18 2021-03-18 Emergency X [facility] ERT [id number] Univers 16:34:00 16:34:00 alvino [facility] 2021-03-18 2021-03-18 Outpatient R EPI [facility] [id number] Univers 15:00:00 16:15:48 JENNIE de oliveira [facility] 2021-03-18 2021-03-18 Office Epi [facility] 1.2.840.114 [id number] Univers 15:00:00 16:15:48 Visit [facility] 350.1.13.10 it y of [facility] 4.2.7.2.686 Bernabe as HUMPHREY?BLEA [phone] Co dical [address] MEDICAL OFFICE BUILDING 2021-03-18 2021-03-18 Outpatient R EPI [facility] ERT [id number] Univers 15:00:00 16:15:48 JENNIE de oliveira of [facility] 2021-03-18 2021-03-18 Outpatient R EPI [facility] [id number] Univers 15:00:00 16:15:48 JENNIE de oliveira [facility] 2021-03-18 2021-03-18 Transition JONO Galvan 1.2.840.114 [id number] Univers 00:00:00 00:00:00 of Care Nara ROCHAY 350.1.13.10 it y of [place] 4.2.7.2.686 [place] [id number] [facility] [address] 2021-03-12 2021-03-17 Inpatient X [facility] [id number] Univers 12:11:00 15:43:00 [facility] 2021-03-12 2021-03-17 Hospital Damien Hugo 1.2.840 .114 [id number] Univers 12:11:00 15:43:00 Encounter Soni Hunter 350.1.13.10 ity of [facility] 4.2.7.2.686 [place] [phone] [facility] [address] 2021-03-12 2021-03-17 Inpatient X [facility] [id number] Univers 12:11:00 15:43:00 [facility] 2021-03-17 2021-03-17 Nurse Esperanza Cronin 1.2.840.114 [id number] Univers 00:00:00 00:00:00 Triage CARLOS 350.1.13.10 it y of [facility] 4.2.7.2.686 Bernabe as [phone] [facility] [address] 2021-03-16 2021-03-16 GLENNA Barcenas 1.2.840.114 [id number] Univers 00:00:00 00:00:00 [facility] 350.1.13.10 ity of [facility] [address] 4.2.7.2.686 [place] [id number] [facility] [address] 2021-03-16 2021-03-16 Case GLENNA Dorsey 1.2.840.114 [id number] Univers 00:00:00 00:00:00 Management Ortega [facility] 350.1.13.10 ity of [facility] [address] 4.2.7.2.686 [place] [phone] [facility] [address] 2021-03-11 2021-03-11 Transition JONO Galvan 1.2.840.114 [id number] Univers 00:00:00 00:00:00 of Care Nara MG 350.1.13.10 it y of [place] 4.2.7.2.[place] [phone] [facility] [address] 2021-03-11 2021-03-11 Telephone Kumar [facility] 1.2.084.578 [id number] Univers 00:00:00 00:00:00 Sriram [place] 350.1.13.10 ity [facility] 4.2.7.2.[place] [phone] [facility] 059 [facility] 2021-03-07 2021-03-10 Outpatient X ANUJ GONZALES [facility] SAMI [id number] Univers 08:28:00 14:20:00 ity of [facility] 2021-03-07 2021-03-10 Emergency Aiden Hudson SETHE 1.2.840. 114 [id number] Univers 08:28:00 14:20:00 Anuj Gonzales 350.1.13.1 0 ity of [facility] 4.2.7.2.686 Bernabe as [id number] [facility] [address] 2021-03-07 2021-03-10 Outpatient X ANUJ GONZALES [facility] SAMI [id number] Univers 08:28:00 14:20:00 ity of [facility] 2021-03-09 2021-03-09 Surgery Misael Castro [facility] 1.2.840.114 [id number] Univers 09:36:00 10:16:00 David ABBASI 350.1.13.10 it y of [place] 4.2.7.2.686 Bernabe as BL [phone] [facility] [address] 2021-03-03 2021-03-03 Outpatient R HEMANTH [facility] [id number] Univers 14:00:00 14:44:31 SHANTEL [facility] 2021-03-03 2021-03-03 Office [facility] 1.2.840.114 [id number] Univers 14:00:00 14:44:31 Visit Shantel Lauryn [place] 350.1.13.10 ity [facility] 4.2.7.2.[place] [phone] Co dic[address] 2021-03-03 2021-03-03 Outpatient R BROOKS [facility] [id number] Univers 14:00:00 14:00:00 DIANN [facility] 2021-02-08 2021-02-08 Office Jameson Sabina [facility] 1.2.840.114 [id number] Univers 15:30:00 16:44:10 Visit KHLOE 350.1.13.10 it y of [place] [id number] [facility] [address] 2021-02-08 2021-02-08 Outpatient R JAMESON SABINA [facility] [id number] Univers 15:30:00 16:44:10 ity [facility] 2021-02-08 2021-02-08 Outpatient R SABINA BARBA [facility] [id number] Univers 15:30:00 16:44:10 ity [facility] 2021-02-08 2021-02-08 Outpatient R JAMESON SABINA [facility] [id number] Univers 15:30:00 15:30:[facility] 2021-02-08 2021-02-08 Outpatient R SABINA BARBA [facility] [id number] Univers 15:30:00 15:30:00 ity [facility] 2021-02-03 2021-02-03 Case [facility] 1.2.840.114 [id number] Univers 00:00:00 00:00:00 Management Wondiful A HEALTH 350.1.13.10 ity of [place] 4.2.7.2.686 Bernabe as HUMPHREY?BLEA [phone] Co sherif [place] [address] MEDICAL OFFICE BUILDING 2021-02-01 2021-02-01 Office [facility] 1.2.840.114 [id number] Univers 15:30:00 16:58:42 Visit Ericka SALINAS 350.1.13.10 it y of [place] 4.2.7.2.686 Bernabe as HUMPHREY?BLEA [phone] Co sherif [place] [address] [facility] OFFICE [facility] 2021-02-01 2021-02-01 Outpatient R MEKA [facility] [id number] Univers 15:30:00 16:58:42 ERICKA de oliveira [facility] 2021-02-01 2021-02-01 Outpatient R MEKA [facility] [id number] Univers 16:30:00 16:30:00 ERICKA kelsie [facility] 2021-02-01 2021-02-01 Instructional Design Specialist Lab, [facility] 1.2.840.1 [id number] Univers 16:02:42 16:17:42 Visit Ericka Ackerman 350.1.13.10 ity of [place] 4.2.7.2.686 Bernabe as HUMPHREY?BLEA [phone] Co sherif [place] [address] [facility] OFFICE [facility] 2021-02-01 2021-02-01 Outpatient R MEKA [facility] [id number] Univers 15:30:00 15:30:00 ERICKA de oliveira [facility] 2021-01-31 2021-01-31 Outpatient R KUMAR [facility] [id number] Univers 13:40:00 13:44:29 GUILLECHAIM alvino o [facility] 2021-01-31 2021-01-31 Outpatient R KUMAR [facility] [id number] Univers 13:40:00 13:44:29 DIMITRIZECHARIAH alvino o [facility] 2021-01-31 2021-01-31 Office [facility] 1.2.840.114 [id number] Univers 13:18:52 13:44:29 Visit Sriram [facility] [id number] ity of [facility] [id number] [phone] Co dical NAL 0[address] [facility] 2021-01-31 2021-01-31 Outpatient R KUMAR [facility] [id number] Univers 13:40:00 13:40:00 SRIRAM ity o f [facility] 2021-01-31 2021-01-31 Instructional Design Specialist Lab, [facility] - [facility] [id number] Univers 10:03:00 10:18:00 Visit Sriram [facility] [id number] ity of [place] [id number] Bernabe as HUMPHREY?BLEA [phone] Co dicelinor [facility] [address] [facility] 2021-01-31 2021-01-31 [facility] 1.2.840.114 [id number] Univers 09:22:40 10:03:18 Visit Wondiful A HEALTH [id number] ity of [place] [id number] Bernabe as HUMPHREY?BLEA [phone] Co dicelinor [place] [address] [facility] 2021-01-31 2021-01-31 [facility] [id number] Univers 09:30:00 09:30:00 WONDIFUL ity o f [facility] 2021-01-11 2021-01-11 [facility] 1.2.840.114 [id number] Univers 00:00:00 00:00:00 Management Wondiful A HEALTH 350.1.13.10 it[facility] 4.2.7.2.686 Bernabe as HUMPHREY?BLEA [phone] Co dical AMALIA [address] MEDICAL OFFICE BUILDING 2021-01-07 2021-01-07 Outpatient R MAJOR [facility] [id number] Univers 16:30:00 23:59:00 WONDIFUL ity o f [facility] 2021-01-07 2021-01-07 [facility] 1.2.773.834 [id number] Univers 16:30:00 23:59:00 Encounter Wondiful A HEALTH 350.1.13.10 ity of [place] 4.2.7.2.686 Bernabe as HUMPHREY?BLEA [phone] Co sherif HOLLAND [address] MEDICAL OFFICE [facility] 2021-01-07 2021-01-07 Instructional Design Specialist Lab, Ang - Db [facility] 1.2.840.1 14 [id number] Univers 16:36:52 16:51:52 Visit Clare Gonsalves HEALTH 350.1.13.1 0 ity of [place] 4.2.7.2.686 Bernabe as HUMPHREY?BLEA [phone] Me sherif HOLLAND 353 [facility] OFFICE [facility] 2021-01-07 2021-01-07 [facility] [id number] Univers 16:15:00 16:37:00 WONDIFUL ity o f [facility] 2021-01-07 2021-01-07 [facility] 1.2.840.114 [id number] Univers 15:34:25 16:37:00 Visit Wondipastor A HEALTH 350.1.13.10 ity of [place] 4.2.7.2.686 Bernabe as HUMPHREY?BLEA [phone] Co sherif HOLLAND 044 [facility] OFFICE [facility] 2021-01-05 2021-01-05 Telephone [facility] 1.2.840.114 [id number] Univers 00:00:00 00:00:00 Wondiful A HEALTH 350.1.13.10 ity of [place] 4.2.7.2.686 Bernabe as HUMPHREY?BLEA [phone] Co sherif HOLLAND [address] MEDICAL OFFICE [facility] 2020-12-28 2020-12-28 Outpatient R KIA [facility] [id number] Univers 14:00:00 14:00:00 SILVERIO ity of [facility] 2020-12-27 2020-12-27 Outpatient R MAJOR [facility] [id number] Univers 13:14:51 23:59:00 WONDIFUL ity o f [facility] 2020-12-27 2020-12-27 [facility] 1.2.629.265 [id number] Univers 13:00:00 23:59:00 Encounter Wondiful A [place] 350.1.13.10 ity of [place].2.7.2.[place] [phone] [address] 2020-12-27 2020-12-27 Outpatient R MAJOR [facility] [id number] Univers 00:00:00 00:00:00 WONDIFUL ity o f [facility] 2020-12-13 2020-12-13 Telephone [facility] 1.2.840.114 [id number] Univers 00:00:00 00:00:00 Wondiful A Health 350.1.13.10 ity of [place] 4.2.7.2.686 Bernabe as Humphrey?Blea [phone] [address] Office [facility] 2020-12-13 2020-12-13 Telephone Major [facility] 1.2.840.114 [id number] Univers 00:00:00 00:00:00 Wondiful A Health 350.1.13.10 ity of [place] 4.2.7.2.686 Bernabe as Humphrey?Blea [phone] [facility] evelyn 044 [facility] Office [facility] 2020-12-06 2020-12-06 Telephone Major [facility] 1.2.840.114 [id number] Univers 00:00:00 00:00:00 Wondiful A Health 350.1.13.10 ity of [place] 4.2.7.2.686 Bernabe as Humphrey?Blea [phone] [facility] evelyn 044 [facility] Office [facility] 2020-12-03 2020-12-03 Instructional Design Specialist Lab, Ang - Db [facility] 1.2.840.1 14 [id number] Univers 16:48:38 17:03:11 Visit Clare Gonsalves A Health 350.1.13.1 0 ity of [place] 4.2.7.2.686 Bernabe as Humphrey?Blea [phone] [facility] evelyn [address] Medical Office [facility] 2020-12-03 2020-12-03 Instructional Design Specialist Lab, Ang - Db [facility] 1.2.840.1 14 [id number] Univers 16:48:38 17:03:11 Visit Clare Gonsalves Health 350.1.13.1 0 ity of [place] 4.2.7.2.686 Bernabe as Humphrey?Blea [phone] [facility] 353 [facility] Office [facility] 2020-12-03 2020-12-03 Instructional Design Specialist Lab, Ang - Db [facility] 1.2.840.1 14 [id number] Univers 16:48:38 17:03:11 Visit Clare Gonsalves HEALTH 350.1.13.1 0 ity of [place] 4.2.7.2.686 Bernabe as HUMPHREY?BLEA [phone] [address] OFFICE [facility] 2020-12-03 2020-12-03 Office Major [facility] 1.2.840.114 [id number] Univers 15:32:14 16:49:03 Visit Clare Combs [facility] 350.1.13.10 ity of [place] 4.2.7.2.686 Bernabe as Humphrey?Blea [phone] [facility] evelyn 044 [facility] Office [facility] 2020-12-03 2020-12-03 Outpatient R MAJOR [facility] [id number] Univers 15:45:00 15:45:00 WONDIFUL ity o f [facility] 2020-11-23 2020-11-23 Office [facility] 1.2.840.114 [id number] Univers 09:49:05 10:43:01 Visit Silverio [place] 350.1.13.10 i ty of [place].2.7.2.[place] [phone] Co dicmt nal 059 [facility] 2020-11-23 2020-11-23 Out[facility] [id number] Univers 10:00:00 10:00:00 SILVERIO ity of [facility] 2020-11-15 2020-11-15 Refisra Heath [facility] 1.2.840.114 [id number] Univers 00:00:00 00:00:00 Sriram [place] 350.1.13.10 ity of [place] 4.2.7.2.[place] [phone] [facility] 059 [facility] 2020-11-15 2020-11-15 Refisra Gonsalves NEJENNI 1.2.840.114 [id number] Univers 00:00:00 00:00:00 Wondiful A [place] 350.1.13.10 ity of [place] 4.2.7.2.[place] [phone] [facility] 059 [facility] 2020-11-11 2020-11-11 Refill Major [facility] 1.2.840.114 [id number] Univers 00:00:00 00:00:00 Wondiful A Health 350.1.13.10 ity of [place] 4.2.7.2.686 Bernabe as Professio [phone] [address] One 2020-10-05 2020-10-05 Refisra Gonsalves [facility] 1.2.840.114 [id number] Univers 00:00:00 00:00:00 Wondiful A Health 350.1.13.10 ity of [place] 4.2.7.2.686 Bernabe as Professio [phone] [address] Office [facility] One 2020-10-04 2020-10-04 Orders Doctor YANA 1.2.840.114 [id number] Univers 00:00:00 00:00:00 Only Unassigned, CARLOS 350.1.13.10 ity of [place] [facility] 4.2.7.2.686 Bernabe as [phone] [address] 2020-09-24 2020-09-24 Refill Major NEJENNI 1.2.840.114 [id number] Univers 00:00:00 00:00:00 Wondiful A Health 350.1.13.10 ity of [place] 4.2.7.2.686 Bernabe as Professio [phone] [address] One 2020-09-09 2020-09-09 Refisra Heath NEJENNI 1.2.840.114 [id number] Univers 00:00:00 00:00:00 Qiangjun [place] 350.1.13.10 ity of [place].7.2.[place] [phone] [address] 2020-09-03 2020-09-03 [facility] 1.2.840.114 [id number] Univers 00:00:00 00:00:00 Wondiful A Health 350.1.13.10 ity of [place] 4.2.7.2.686 Bernabe as Professio [phone] [address] 2020-07-27 2020-07-27 Outpatient R KIA [facility] [id number] Univers 10:20:00 10:20:00 SILVERIO ity [facility] 2020-07-27 2020-07-27 Office [facility] 1.2.840.114 [id number] Univers 09:56:55 10:16:55 Visit Silverio [place] 350.1.13.10 i ty of [place].2.7.2.[place] [phone] [address] 2020-07-13 2020-07-13 Orders Doctor YANA 1.2.840.114 [id number] Univers 00:00:00 00:00:00 Only Unassigned, CARLOS 350.1.13.10 ity of [place] [facility] 4.2.7.2.686 Bernabe as [phone] [address] 2020-07-08 2020-07-08 [facility] 1.2.840.114 [id number] Univers 00:00:00 00:00:00 Wondiful A Health 350.1.13.10 ity of [place] 4.2.7.2.686 Bernabe as Professio [phone] [address] 2020-06-29 2020-06-29 Outpatient R [facility] [id number] Univers 10:30:00 10:30:00 ity of [facility] 2020-06-29 2020-06-29 Outpatient R KIA [facility] [id number] Univers 10:30:00 10:30:00 SILVERIO ity of [facility] 2020-06-07 2020-06-07 Office Kumar, [facility] 1.2.840.114 [id number] Univers 13:02:14 13:29:23 Visit Sriram Palomo 350.1.13.10 ity of [place] 4.2.7.2.[place] [phone] Co dicmt nal [address] 2020-06-07 2020-06-07 Out[facility] [id number] Univers 13:00:00 13:00:00 SRIRAM martykelsie diamond f [facility] 2020-06-02 2020-06-02 Outpatient R DEE, [facility] [id number] Univers 19:20:00 19:20:00 VIRIOLAMIDE grove [facility] 2020-06-02 2020-06-02 Laboratory Lab, [facility] Pob I [facility] 1.2. 840.114 [id number] Univers 18:38:28 18:58:28 Only [facility] 350.1.13.10 ity of [place] Viri Palomo 4.2.7.2.686 [facility] [phone] [facility] [address] One 2020-06-02 2020-06-02 Letter Doctor MILLAN 1.2.840.114 [id number] Univers 00:00:00 00:00:00 (Out) Unassigned, CARLOS 350.1.13.10 ity of [place] [facility] 4.2.7.2.686 Bernabe as [phone] [address] 2020-06-02 2020-06-02 Letter Doctor MILLAN 1.2.840.114 [id number] Univers 00:00:00 00:00:00 (Out) Unassigned, CARLOS 350.1.13.10 ity of [place] [facility] 4.2.7.2.686 Bernabe as [phone] [address] 2020-06-02 2020-06-02 Letter Doctor MILLAN 1.2.840.114 [id number] Univers 00:00:00 00:00:00 (Out) Unassigned, CARLOS 350.1.13.10 ity of [place] [facility] 4.2.7.2.686 Bernabe as [phone] [facility] [address] 2020-06-02 2020-06-02 Letter Doctor YANA 1.2.840.114 [id number] Univers 00:00:00 00:00:00 (Out) Unassigned, CARLOS 350.1.13.10 ity of [place] [facility] 4.2.7.2.686 Bernabe as [phone] [address] 2020-05-20 2020-05-20 Telephone YANA Samano 1.2.942.719 [id number] Univers 00:00:00 00:00:00 Teri A CARLOS 350.1.13.10 ity of HOSPITAL 4.2.7.2.686 Bernabe as [phone] [facility] [address] [place] [address] 2020-05-20 2020-05-20 Telephone YANA Samano 1.2.909.249 [id number] 00:00:00 00:00:00 Teri A CARLOS 350.1.13.10 HOSPITAL 4.2.7.2.686 [phone] [facility] 2020-04-28 2020-04-28 [facility] 1.2.840.114 [id number] Univers 00:00:00 00:00:00 Silverio [place] 350.1.13.10 i ty of [place] [phone] [address] 2020-04-27 2020-04-27 Office [facility] 1.2.840.114 [id number] Univers 11:25:29 11:45:29 Visit Silverio [place] 350.1.13.10 i ty of [place].2.7.2.[place] Profess[place] [phone] [address] 2020-04-27 2020-04-27 Outpatient Moustapha ADAM [facility] [id number] Univers 11:40:00 11:40:00 SILVERIO ity of [facility] 2020-04-26 2020-04-26 Outpatient R KIT [facility] [id number] Univers 10:20:00 10:20:00 ERICH ity of [facility] 2020-04-14 2020-04-14 [facility] 1.2.025.168 [id number] Univers 09:18:24 23:59:00 Encounter Wondiful A [place] 350.1.13.10 ity of [place] 4.2.7.2.686 [place] [phone] [facility] [address] 2020-04-14 2020-04-14 [facility] [id number] Univers 00:00:00 00:00:00 WONDIFUL ity o f [facility] 2020-03-31 2020-03-31 Instructional Design Specialist [place], [facility] Lab Main [facility] 1.2.8 40.114 [id number] [facility] 09:18:24 09:33:24 Visit Clare Gonsalves [place] 350.1.13. 10 ity of [place].2.7.2.[place] [phone] Co dical nal 353 [facility] 2020-03-31 2020-03-31 Outpatient [facility] [id number] Univers 09:15:00 09:15:00 WONDIFUL ity o f [facility] 2020-03-30 2020-03-30 Laboratory Pacemaker/Icd, [facility] 1.2. 840.114 [id number] Univers 12:51:02 13:15:05 Only Silverio Adam [place] 350.1.13.10 ity of [place] 4.2.7.2.[place] [phone] Co dical nal 059 [facility] 2020-03-30 2020-03-30 Outpatient R [facility] [id number] Univers 13:00:00 13:00:00 ity of [facility] 2020-03-29 2020-03-29 Office [facility] 1.2.840.114 [id number] Univers 15:15:24 16:12:41 Visit Wondiful A Health 350.1.13.10 ity of [place] 4.2.7.2.686 Bernabe as Professio [phone] Me dical nal [address] Office [facility] One 2020-03-29 2020-03-29 Outpatient R MAJOR [facility] [id number] Univers 15:30:00 15:30:00 CLARE de oliveira o f [facility] 2020-03-03 2020-03-03 Orders Doctor YANA 1.2.840.114 [id number] Univers 00:00:00 00:00:00 Only Unassigned, CARLOS 350.1.13.10 ity of [place] [facility] 4.2.7.2.686 Bernabe as [phone] [address] 2020-02-03 2020-02-03 Outpatient [facility] [id number] Univers 14:20:00 14:20:00 SRIRAM de oliveira o f [facility] 2020-02-03 2020-02-03 Office [facility] 1.2.840.114 [id number] Univers 13:38:09 14:13:45 Visit Sriram Palomo 350.1.13.10 ity of [place]2.7.2.[place] [phone] [facility] nal [address] [place] [address] 2020-01-27 2020-01-27 Office [facility] 1.2.840.114 [id number] Univers 10:58:57 11:32:49 Visit Silverio [place] 350.1.13.10 i ty of [place] 4.2.7.2.[place] [phone] [address] 2020-01-27 2020-01-27 Outpatient [facility] [id number] Univers 11:00:00 11:00:00 SILVERIO ity of [facility] 2020-01-20 2020-01-20 Orders Doctor YANA 1.2.840.114 [id number] Univers 00:00:00 00:00:00 Only Unassigned, CARLOS 350.1.13.10 ity of [place] [facility] 4.2.7.2.686 Bernabe as [phone] [address] 2020-01-20 2020-01-20 Telephone [facility] 1.2.967.162 [id number] Univers 00:00:00 00:00:00 Sriram [place] 350.1.13.10 ity of [place].2.7.2.[place] [phone] Co dical nal 059 [facility] 2020-01-20 2020-01-20 Refill [facility] 1.2.840.114 [id number] Univers 00:00:00 00:00:00 Qiangjun [place] 350.1.13.10 ity of [place] 4.2.7.2.[place] [phone] Co dicmt nal 9 [facility] 2020-01-14 2020-01-14 Orders Doctor YANA 1.2.840.114 [id number] Univers 00:00:00 00:00:00 Only Unassigned, CARLOS 350.1.13.10 ity of [place] [facility] 4.2.7.2.686 Bernabe as [phone] [address] 2020-01-12 2020-01-12 Outpatient [facility] [id number] Univers 10:00:00 10:00:00 DIMITRIZECHARIAH ity o f [facility] 2020-01-05 2020-01-05 Instructional Design Specialist 2, Adc Lab [facility] 1.2.840.114 [id number] Univers 15:31:18 15:46:18 Visit Min Jay 350.1.1 3.10 ity of [place].7.2.[place] [phone] Co dicmt nal 353 [facility] 2020-01-05 2020-01-05 Office Omole, [facility] 1.2.840.114 [id number] Univers 14:39:45 15:28:14 Visit Min Palomo 350.1.13.10 i ty of Parmjitmnayla [place] 4.2.7.2.686 [place] [phone] Co dicmt nal 059 [facility] 2020-01-05 2020-01-05 Outpatient R FREDDY [facility] [id number] Univers 14:45:00 14:45:00 MIN ity of [facility] 2020-01-05 2020-01-05 Orders Doctor MILLAN 1.2.840.114 [id number] Univers 00:00:00 00:00:00 Only Unassigned, CARLOS 350.1.13.10 ity of [place] [facility] 4.2.7.2.686 Bernabe as [phone] [facility] [address] 2020-01-01 2020-01-01 Telephone [facility] 1.2.339.943 [id number] Univers 00:00:00 00:00:00 Sriram Palomo 350.1.13.10 ity of [place].2.[place] [phone] Co dical nal 059 [facility] 2019-12-19 2019-12-19 Office [facility] 1.2.840.114 [id number] Univers 11:30:41 12:16:36 Visit Nita [place] 350.1.13.10 i ty of [place] 4.2.7.2.[place] [phone] Co dical nal 085 [facility] 2019-12-19 2019-12-19 Outpatient R NITA DEGROOT [facility] [id number] Univers 11:40:00 11:40:00 NITA DEGROOT i ty of [facility] 2019-12-19 2019-12-19 Telephone [facility] 1.2.394.540 [id number] Univers 00:00:00 00:00:00 Guillechaim [place] 350.1.13.10 ity of [place] 4[place]2.7.2.[place] [phone] Co dical nal 059 [facility] 2019-12-18 2019-12-18 Orders Doctor YANA 1.2.840.114 [id number] Univers 00:00:00 00:00:00 Only Unassigned, CARLOS 350.1.13.10 ity of [place] [facility] 4.2.7.2.686 Bernabe as [phone] [facility] [address] 2019-12-16 2019-12-16 [facility] 1.2.840.114 [id number] Univers 08:53:47 09:13:47 Visit Silverio Palomo 350.1.13.10 i ty of [place] 4.2.7.2.[place] [phone] Co dical nal 059 [facility] 2019-12-16 2019-12-16 Outpatient R KIA [facility] [id number] Univers 09:00:00 09:00:00 SILVERIO ity of [facility] 2019-12-15 2019-12-15 Telephone Major [facility] 1.2.840.114 [id number] Univers 00:00:00 00:00:00 Wondiful A Health 350.1.13.10 ity of [place] 4.2.7.2.686 Bernabe as Professio [phone] [facility] [address] [facility] 2019-12-15 2019-12-15 Case Major [facility] 1.2.840.114 [id number] Univers 00:00:00 00:00:00 Management Wondiful A Health 350.1.13.10 ity of [place] 4.2.7.2.686 Bernabe as Professio [phone] [facility] nal [address] [facility] 2019-12-10 2019-12-10 Orders Doctor YANA 1.2.840.114 [id number] Univers 00:00:00 00:00:00 Only Unassigned, CARLOS 350.1.13.10 ity of [place] [facility] 4.2.7.2.686 Bernabe as [phone] [address] 2019-12-09 2019-12-09 Urgent Provider, [facility] Urgent Care [facility] 1.2.840.114 [id number] Univers 14:46:41 15:59:38 Care Monica [facility] 350.1.13.10 ity of [place] 4.2.7.2.686 Bernabe as Professio [phone] [facility] [address] [facility] 2019-12-09 2019-12-09 Outpatient R LUKE [facility] [id number] Univers 15:00:00 15:00:00 MONICA ity of [facility] 2019-12-04 2019-12-04 Office Major [facility] 1.2.840.114 [id number] Univers 12:39:51 13:39:11 Visit Wondiful A Health 350.1.13.10 ity of [place] 4.2.7.2.686 Bernabe as Professio [phone] Co dicmt nal [address] Office [facility] One 2019-12-04 2019-12-04 Outpatient R MAJOR [facility] [id number] Univers 13:00:00 13:00:00 WONDIFUL ity o f [facility] 2019-12-02 2019-12-02 Laboratory Pacemaker/Icd, [facility] 1.2. 840.114 [id number] Univers 10:50:24 11:27:03 Only Sriram Heath 350.1.13.10 ity of [place].2.[place] [phone] [address] 2019-12-02 2019-12-02 Outpatient R [facility] [id number] Univers 11:00:00 11:00:00 ity of [facility] 2019-12-02 2019-12-02 Telephone [facility] 1..840.114 [id number] Univers 00:00:00 00:00:00 Wondiful A Health 350.1.13.10 ity of [place] 4.2.7.2.686 Bernabe as Professio [phone] [address] [facility] 2019-12-01 2019-12-01 Office [facility] 1..840.114 [id number] Univers 15:16:46 16:01:04 Visit Sriram Palomo 350.1.13.10 ity of [place].7.2.[place] [phone] Co dic[address] 2019-12-01 2019-12-01 Out[facility] [id number] Univers 15:40:00 15:40:00 SRIRAM ity o f [facility] 2019-12-01 2019-12-01 Transition Jono Mccurdy 1.2.840.114 [id number] Univers 00:00:00 00:00:00 of Care Jo L Mg 350.1.13.10 i ty of [place].7.2.[place] [phone] [address] 2019-11-26 2019-11-28 Hospital Kirt Thomason [facility] 1.2.840.1 14 [id number] Univers 14:42:00 15:06:00 Encounter Gab Servin 350.1.13.10 ity of [place].7.2.[place] [phone] [facility] [address] 2019-11-26 2019-11-28 Inpatient X [facility]AB [facility] [id number] Univers 14:42:00 15:06:00 ity of [facility] 2019-11-26 2019-11-26 Telephone [facility] 1.2.840.114 [id number] Univers 00:00:00 00:00:00 Wondiful A Health 350.1.13.10 ity of [place] 4.2.7.2.686 Bernabe as Professio [phone] Co dic[address] [facility] 2019-11-24 2019-11-24 Telemedici [facility] 1.2.840.114 [id number] Univers 12:42:21 16:15:48 ne Visit Wondiful A Health 350.1.13.10 ity of [place] 4.2.7.2.686 Bernabe as Professio [phone] Co dic[address] [facility] 2019-11-24 2019-11-24 Outpatient R MAJOR [facility] [id number] Univers 15:30:00 15:30:00 WONDIFUL ity o f [facility] 2019-11-24 2019-11-24 Transition Jono Henry 1.2.840.114 [id number] Univers 00:00:00 00:00:00 of Care Cielo Mg 350.1.13.10 it y of [place]2.7.2.[place] [phone] [facility] [address] 2019-11-24 2019-11-24 Orders Doctor MILLAN 1.2.840.114 [id number] Univers 00:00:00 00:00:00 Only Unassigned, CARLOS 350.1.13.10 ity of [place] [facility] 4.2.7.2.686 Bernabe as [phone] [facility] [address] 2019-11-21 2019-11-21 Transition Jono Henry 1.2.840.114 [id number] Univers 00:00:00 00:00:00 of Care Cielo Rochay 350.1.13.10 it y of [place].7.2.[place] [phone] [facility] [address] 2019-11-08 2019-11-20 [facility] Fam Craig 1.2.840.114 [id number] Univers 18:18:00 16:52:00 Encounter Argenis Barnett 350.1.13.1 0 ity of [facility] 4.2.7.2 .686 [place] [phone] [facility] [address] 2019-11-08 2019-11-20 Inpatient U [facility] [id number] Univers 18:18:00 16:52:00 [facility] ity [facility] 2019-11-20 2019-11-20 [facility] 1.2.840.114 [id number] Univers 00:00:00 00:00:00 [facility] [id number] ity of [place] 4.2.7.2.686 Bernabe as Professio [phone] [address] One 2019-11-19 2019-11-19 [facility] [id number] Univers 14:30:00 14:30:00 [place] ity [facility] 2019-11-19 2019-11-19 [facility] 1.2.840.114 [id number] Univers 00:00:00 00:00:00 [facility] [id number] ity of [place] 4.2.7.2.686 Bernabe as Professio [phone] [address] One 2019-11-17 2019-11-17 [facility] [id number] Univers 08:00:00 08:00:00 SILVERIO ity [facility] 2019-11-14 2019-11-14 Outpatient R [facility] [id number] Univers 09:00:00 09:00:00 ity of [facility] 2019-11-10 2019-11-10 [facility]phone [facility] 1.2.840.114 [id number] Univers 00:00:00 00:00:00 [facility] [id number] ity of [place] 4.2.7.2.686 Bernabe as Professio [phone] [address] Office Building One 2019-11-08 2019-11-08 [facility] 1.2.840.114 [id number] Univers 00:00:00 00:00:00 [facility] [id number] ity of [place] [id number] Bernabe as Professio [phone] [address] Office [address] [facility] 2019-11-05 2019-11-05 [facility] Kia [facility] 1.2.840.114 [id number] Univers 07:42:01 23:59:00 Encounter [facility] [id number] [place] [phone] [address] ([facility]) 2019-11-05 2019-11-05 Outpatient R KIA [facility] [id number] Univers 00:00:00 00:00:00 SILVERIO ity [facility] 2019-10-29 2019-10-[address] [facility] 1.2.840.114 [id number] Univers 00:00:00 00:00:00 Outreach Wondiful A Health 350.1.13.10 ity of [place] 4.2.7.2.686 Bernabe as Professio [phone] [address] Office Building One 2019-10-29 2019-10-29 Pre Visit Major [facility] 1.2.840.114 [id number] Univers 00:00:00 00:00:00 Outreach Wondiful A Health 350.1.13.10 ity of [place] 4.2.7.2.686 Bernabe as Professio [phone] [address] Office Building One 2019-10-28 2019-10-28 Office Major [facility] 1.2.840.114 [id number] Univers 08:55:08 09:43:57 Visit Wondiful A Health 350.1.13.10 ity of [place] 4.2.7.2.686 Bernabe as Professio [phone] [address] One 2019-10-28 2019-10-28 [facility] [id number] Univers 09:30:00 09:30:00 WONDIFUL ity o f [facility] 2019-10-24 2019-10-24 Emergency [facility] 1.2.624.612 [id number] Univers 19:34:00 23:51:00 Wakili S [place] 350.1.13.10 ity of [place].2.7.2.[place] [phone] [place] 159564 [place] 2019-10-24 2019-10-24 Emergency X ON LICENSE OF [facility] ERT [id number] Univers 19:34:00 23:51:00 WAKILI ity of [facility] 2019-10-24 2019-10-24 [facility]phone [facility] 1.2.840.114 [id number] Univers 00:00:00 00:00:00 Wondiful A Health 350.1.13.10 ity of [place] 4.2.7.2.686 Bernabe as Professio [phone] [address] Office [facility] One 2019-10-24 2019-10-24 Orders Doctor YANA 1.2.840.114 [id number] Univers 00:00:00 00:00:00 Only Unassigned, CARLOS 350.1.13.10 ity of [place] [facility] 4.2.7.2.686 Bernabe as [phone] [facility] [address] 2019-10-21 2019-10-21 Telephone Mary Kay Adam 1.2.187.080 [id number] Univers 00:00:00 00:00:00 Silverio Carlos 350.1.13.10 it y of Hospital 4.2.7.2.686 Bernabe as [phone] [facility] [address] 2019-10-09 2019-10-09 Telephone GLENNA Adam 1.2.840.114 [id number] Univers 00:00:00 00:00:00 Silverio Y HEALTH 350.1.13.10 i ty of CLINICS [place].2.[place] [phone] [facility] [address] [place] [address] 2019-10-08 2019-10-[address] [facility], [facility] 1.2.840.114 [id number] Univers 00:00:00 00:00:00 Wondiful A Health 350.1.13.10 ity of [place] 4.2.7.2.686 Bernabe as Professio [phone] [facility] [address] [place] Office Building One 2019-10-08 2019-10-08 Telephone [facility], [facility] 1.2.102.321 [id number] Univers 00:00:00 00:00:00 Silverio [place] 350.1.13.10 i [place] of [place] Profess[place] [phone] [address] 2019-10-01 2019-10-01 Orders Doctor YANA 1.2.840.114 [id number] Univers 00:00:00 00:00:00 Only Unassigned, CARLOS 350.1.13.10 ity of [place] [facility] 4.2.7.2.686 Bernabe as [phone] [facility] [address] [place] 2019-09-23 2019-09-23 Telephone [facility], [facility] 1.2.993.597 [id number] Univers 00:00:00 00:00:00 Silverio [place] 350.1.13.10 i [place] of [place]2.7.[place] Profess[place] [phone] [address] 2019-09-18 2019-09-[address] [facility], [facility] 1.2.840.114 [id number] Univers 00:00:00 00:00:00 Wondiful A [place] 350.1.13.10 ity of [place].2.[place] [phone] [facility] 044 [facility] 2019-09-17 2019-09-17 Telephone [facility], [facility] 1.2.554.613 [id number] Univers 00:00:00 00:00:00 Silverio [place] 350.1.13.10 i ty of [place].2.7.2.[place] Profess[place] [phone] Co dical nal 059 [facility] 2019-09-16 2019-09-16 Office [facility] 1.2.840.114 [id number] Univers 10:18:05 12:06:59 Visit Silverio [place] 350.1.13.10 i ty of [place] 4.2.7.2.[place] [phone] Co dical nal 059 [facility] 2019-09-16 2019-09-16 Out[facility] [id number] Univers 10:40:00 10:40:00 SILVERIO ity of [facility] 2019-09-16 2019-09-16 Telephone [facility] 1.2.584.861 [id number] Univers 00:00:00 00:00:00 Qiangjun [place] 350.1.13.10 ity of [place].2.[place] Profess[place] [phone] Co dical nal 059 [facility] 2019-09-15 2019-09-15 Laboratory Pc, Adc Echo Room 1 - [facility] 1 .2.840.114 [id number] Univers 09:42:44 11:10:38 Only Sriram Heath 350.1.13.10 ity of [place] 4.2.7.2.[place] Profess[place] [phone] Co dical nal 059 [facility] 2019-09-15 2019-09-15 Outpatient R [facility] [id number] Univers 10:00:00 10:00:00 ity of [facility] 2019-09-10 2019-09-10 Telephone Major [facility] 1.2.840.114 [id number] Univers 00:00:00 00:00:00 Wondiful A [place] 350.1.13.10 ity of [place].2.7.2.[place] [phone] Co dical nal 044 [facility] 2019-09-08 2019-09-08 Office [facility] 1.2.840.114 [id number] Univers 13:10:22 13:44:08 Visit Sriram Palomo 350.1.13.10 ity of [place] 4.2.7.2.[place] Profess[place] [phone] Co dical nal 059 [facility] 2019-09-08 2019-09-08 Outpatient R KUMAR [facility] [id number] Univers 13:20:00 13:20:00 DIMITRIZECHARIAH ity o f [facility] 2019-08-25 2019-08-25 Refill [facility] 1.2.840.114 [id number] Univers 00:00:00 00:00:00 Dimitrizechariah [facility] 350.1.13.10 i ty of [place] 4.2.7.2.686 Bernabe as Professio [phone] [facility] 044 [facility] One 2019-08-18 2019-08-18 Telephone [facility] 1.2.730.232 [id number] Univers 00:00:00 00:00:00 Sriram Palomo 350.1.13.10 ity of [place].2.[place] [phone] Co dicmt nal 059 [facility] 2019-08-15 2019-08-15 Nurse Visit, [facility] Nurse [facility] 1.2.840.1 14 [id number] [facility] 09:12:28 21:57:47 Visit Dago Gross 350.1.13. 10 ity of [place].2.7.2.[place] Profess[place] [phone] Co dical nal 059 [facility] 2019-08-15 2019-08-15 Instructional Design Specialist 2, [facility] Lab [facility] 1.2.840.114 [id number] Univers 10:09:35 10:24:35 Visit Dago Gross 350.1.13. 10 ity of [place] 4.2.7.2.[place] Profess[place] [phone] [facility] 353 [facility] 2019-08-15 2019-08-15 Outpatient R [facility] [id number] Univers 09:30:00 09:30:00 ity of [facility] 2019-08-13 2019-08-13 Office [facility] 1.2.840.114 [id number] Univers 16:05:34 16:57:20 Visit Alexey Palomo 350.1.13.10 i ty of [place] 4.2.7.2.[place] [phone] Co dical nal 220 [facility] 2019-08-13 2019-08-13 Outpatient R TIN [facility] [id number] Univers 16:30:00 16:30:00 WENTONG ity of [facility] 2019-08-13 2019-08-13 Orders Doctor YANA 1.2.840.114 [id number] Univers 00:00:00 00:00:00 Only Unassigned, CARLOS 350.1.13.10 ity of [facility] 4.2.7.2.686 Bernabe as [phone] [address] 2019-08-13 2019-08-13 Refill Kumar [facility] 1.2.840.114 [id number] Univers 00:00:00 00:00:00 Sriram Palomo 350.1.13.10 ity of [place].2.[place] [phone] [facility] 059 [facility] 2019-08-07 2019-08-07 Refill Major [facility] 1.2.840.114 [id number] Univers 00:00:00 00:00:00 Wondiful A Health 350.1.13.10 ity of [place] 4.2.7.2.686 Bernabe as Professio [phone] Co dical nal [address] [place] Office Building One 2019-08-04 2019-08-04 Instructional Design Specialist Pc, Adc Vascular Room 1 - [facility] 1.2.840.114 [id number] Univers 10:43:00 11:05:18 Visit Sriram Heath 350.1.13.10 ity of [place] 4.2.7.2.[place] [phone] Co dical nal 059 [facility] 2019-08-04 2019-08-04 Outpatient R [facility] [id number] Univers 11:00:00 11:00:00 ity of [facility] 2019-08-04 2019-08-04 Telephone [facility] 1.2.027.037 [id number] Univers 00:00:00 00:00:00 Sriram Palomo 350.1.13.10 ity of [place].2.[place] [phone] [place] 464829 [facility] 2019-08-03 2019-08-03 [facility]ill [facility] 1.2.840.114 [id number] Univers 00:00:00 00:00:00 Wondiful A Health 350.1.13.10 ity of [place] 4.2.7.2.686 Bernabe as Professio [phone] [address] Office Building One 2019-07-30 2019-07-30 Office [facility] 1.2.840.114 [id number] Univers 13:54:46 14:40:55 Visit Sriram Palomo 350.1.13.10 ity of [place].2.[place] Profess[place] [phone] [address] 2019-07-30 2019-07-30 Outpatient R [facility] [id number] Univers 14:20:00 14:20:00 SRIRAM de oliveira o f [facility] 2019-07-30 2019-07-30 Orders Doctor YANA 1.2.840.114 [id number] Univers 00:00:00 00:00:00 Only Unassigned, CARLOS 350.1.13.10 ity of [place] [facility] 4.2.7.2.686 Bernabe as [phone] [address] 2019-07-17 2019-07-17 Orders Doctor YANA 1.2.840.114 [id number] Univers 00:00:00 00:00:00 Only Unassigned, CARLOS 350.1.13.10 ity of [place] [facility] 4.2.7.2.686 Bernabe as [phone] [address] 2019-07-16 2019-07-[address] [facility] 1.2.840.114 [id number] Univers 00:00:00 00:00:00 Wondiful A Health 350.1.13.10 ity of [place] 4.2.7.2.686 Bernabe as Professio [phone] [facility] [address] [facility] 2019-07-01 2019-07-01 Telephone [facility] 1.2.888.720 [id number] Univers 00:00:00 00:00:00 Sriram Palomo 350.1.13.10 ity of [place].2.[place] [phone] [facility] 059 [facility] 2019-06-30 2019-06-30 Instructional Design Specialist [place], Adc Lab Main [facility] 1.2.8 40.114 [id number] Univers 07:52:57 08:07:57 Visit Sriram Heath 350.1.13.10 ity of [place] 4.2.7.2.[place] [phone] [facility] 353 [facility] 2019-06-30 2019-06-30 [facility] [id number] Univers 08:00:00 08:00:00 SRIRAM fergusony o maine [facility] 2019-06-25 2019-06-25 Out[facility] [id number] Univers 09:40:00 09:40:00 SRIRAM de oliveira o maine [facility] 2019-06-25 2019-06-25 Telemedici [facility] 1.2.840.114 [id number] Univers 08:37:50 08:57:50 ne Visit Sriram Palomo 350.1.13.10 ity of [place].2.7.2.[place] [phone] [facility] 059 [facility] 2019-05-28 2019-05-28 [facility]isra [facility] 1.2.840.114 [id number] Univers 00:00:00 00:00:00 Wondiful A Health 350.1.13.10 ity of [place] 4.2.7.2.686 Bernabe as Professio [phone] [address] 2019-05-25 2019-05-25 [facility] 1.2.840.114 [id number] Univers 00:00:00 00:00:00 Wondiful A Health 350.1.13.10 ity of [place] 4.2.7.2.686 Bernabe as Professio [phone] [address] 2019-05-21 2019-05-21 Outpatient R ALEXUS RAMOS [facility] [id number] Univers 10:00:00 10:00:00 ATAALEXUS JUNG ity of [facility] 2019-05-20 2019-05-20 Telemedici [facility] 1..840.114 [id number] Univers 13:50:59 14:10:59 ne Visit Sriram [place] 350.1.13.10 ity of [place] 4.2.7.2.[place] Profess[place] [phone] [address] 2019-05-20 2019-05-20 [facility] [id number] Univers 13:40:00 13:40:00 SRIRAM ity o f [facility] 2019-05-20 2019-05-20 Telephone [facility] 1..840.114 [id number] [facility] 00:00:00 00:00:00 Wondiful A Health 350.1.13.10 ity of [place] 4.2.7.2.686 Bernabe as Professio [phone] [address] 2019-05-13 2019-05-13 Telephone [facility] 1.2.106.451 [id number] Univers 00:00:00 00:00:00 Guillengjun [place] 350.1.13.10 ity of [place] 4.2.7.2.[place] [phone] Co dical nal 9 [facility] 2019-05-09 2019-05-09 Refill [facility] 1.2.840.114 [id number] Univers 00:00:00 00:00:00 Wondiful A Health 350.1.13.10 ity of [place] 4.2.7.2.686 Bernabe as Professio [phone] [address] 2019-05-02 2019-05-02 Telephone [facility] 1.2.840.114 [id number] Univers 00:00:00 00:00:00 Wondiful A Health 350.1.13.10 ity of [place] 4.2.7.2.686 Bernabe as Professio [phone] Co dical nal [address] [facility] 2019-05-02 2019-05-02 Telephone [facility] 1.2.893.248 [id number] Univers 00:00:00 00:00:00 Wentong [place] 350.1.13.10 i ty of [place] 4.2.7.2.[place] Profess[place] [phone] Co dical nal 220 [facility] 2019-04-30 2019-04-30 Instructional Design Specialist [place], Adc Lab Main [facility] 1.2.8 40.114 [id number] Univers 09:32:20 09:47:20 Visit Sriram Heath 350.1.13.10 ity of [place] 4.2.7.2.[place] Profess[place] [phone] Co dical nal 353 [facility] 2019-04-30 2019-04-30 Outpatient R KUMAR, [facility] [id number] Univers 09:45:00 09:45:00 SRIRAM de oliveira o f [facility] 2019-04-30 2019-04-30 Telephone [facility] 1.2.840.114 [id number] Univers 00:00:00 00:00:00 Wondiful A Health 350.1.13.10 ity of [place] 4.2.7.2.686 Bernabe as Professio [phone] Co dical nal [address] [facility] 2019-04-28 2019-04-28 Office [facility] 1.2.840.114 [id number] Univers 13:21:45 14:34:07 Visit Sriram Palomo 350.1.13.10 ity of [place] 4[place]2.[place].2.[place] [phone] Co dical nal 059 [facility] 2019-04-28 2019-04-28 Outpatient [facility] [id number] Univers 13:20:00 13:20:00 QIANGJUN alvino o f [facility] 2019-04-09 2019-04-09 Instructional Design Specialist [place], Luís Lab Main [facility] 1.2.8 40.114 [id number] Univers 16:15:01 16:30:01 Visit Tin Loboharriett Palomo 350.1.13.10 ity of [place] 4.2.7.2.[place] [phone] Co dical nal 353 [facility] 2019-04-09 2019-04-09 Office Tin [facility] 1.2.840.114 [id number] Univers 15:08:31 15:58:05 Visit Loboharriett Palomo 350.1.13.10 i ty of [place] 4.2.7.2.[place] Profess[place] [phone] [facility] 220 [facility] 2019-04-09 2019-04-09 Orders Doctor YANA 1.2.840.114 [id number] Univers 00:00:00 00:00:00 Only Unassigned, CARLOS 350.1.13.10 ity of [place] [facility] 4.2.7.2.686 Bernabe as [phone] [address] 2019-03-14 2019-03-30 Nurse Visit, [facility] Nurse [facility] 1.2.840.1 14 [id number] Univers 08:39:08 18:06:53 Visit Dago Gross 350.1.13. 10 ity of [place] 4[place]2.7.2.[place] [phone] Co dicmt nal 059 [facility] 2019-03-28 2019-03-28 Telephone Major [facility] 1.2.840.114 [id number] Univers 00:00:00 00:00:00 Wondiful A Health 350.1.13.10 ity of [place] 4.2.7.2.686 Bernabe as Professio [phone] [facility] nal 0[address] [place] Office [facility] One 2019-03-24 2019-03-24 Telephone Major [facility] 1.2.840.114 [id number] Univers 00:00:00 00:00:00 Wondiful A Health 350.1.13.10 ity of [place] 4.2.7.2.686 Bernabe as Professio [phone] Co dical nal [address] Office Building One 2019-03-14 2019-03-14 Outpatient R GINNY [facility] [id number] Univers 09:15:00 09:37:46 SENDIL ity of [facility] 2019-03-14 2019-03-14 Orders Doctor YANA 1.2.840.114 [id number] Univers 00:00:00 00:00:00 Only Unassigned, CARLOS 350.1.13.10 ity of [place] [facility] 4.2.7.2.686 Beranbe as [phone] [facility] [address] 2019-03-06 2019-03-06 Telephone [facility] 1.2.840.114 [id number] Univers 00:00:00 00:00:00 Wondiful A Health 350.1.13.10 ity of [place] 4.2.7.2.686 Bernabe as Professio [phone] [place] [address] [address] Office Building One 2019-01-27 2019-01-27 Outpatient R KUMAR, [facility] [id number] Univers 14:20:00 14:44:45 SRIRAM ity o f [facility] 2019-01-19 2019-01-19 Emergency X [facility] ERT [id number] Univers 10:06:29 15:10:00 EVAN de oliveira [facility] 2019-01-06 2019-01-06 Outpatient R MAJOR [facility] [id number] Univers 15:00:00 15:00:00 WONDIFUL ity o f [facility] 2018-12-11 2018-12-11 Outpatient R KANIKA [facility] [id number] Univers 08:45:00 08:45:00 EKATERINA fergusonkelsie [facility] 2018-11-01 2018-11-01 Telephone [facility] 1.2.840.114 [id number] Univers 00:00:00 00:00:00 Lotaris 350.1.13.10 it y of [facility] 4.2.7.2.686 [place] [facility] [phone] [facility] & 059 [facility] 2018-10-31 2018-10-31 Telephone Major [facility] 1.2.840.114 [id number] Univers 00:00:00 00:00:00 Wondiful A Health 350.1.13.10 ity of [place] 4.2.7.2.686 Bernabe as Professio [phone] [address] Office Building One 2018-10-30 2018-10-30 Telephone [facility] 1.2.501.952 [id number] Univers 00:00:00 00:00:00 Madeleine Rica HEALTH 350.1.13.10 ity of [place] 4.2.7.2.686 [place] [facility] [phone] [facility] 9 [facility] 2018-10-30 2018-10-30 Telephone [facility] 1.2.840.114 [id number] [facility] 00:00:00 00:00:00 Wondiful A Health 350.1.13.10 ity of [place] 4.2.7.2.686 Bernabe as Professio [phone] [address] Office Building One 2018-10-29 2018-10-29 Office [facility], [facility] 1.2.840.114 [id number] Univers 13:11:56 13:52:23 Visit Emily [facility] 350.1.13.10 i ty of [place] 4.2.7.2.686 Bernabe as Professio [phone] [address] Office Building One 2018-10-28 2018-10-29 Office Fac, Adc Heart Failure Cardio [facility] 1.2.840.114 [id number] Univers 15:47:43 12:03:16 Visit Edgar Cortés [place] 350.1 .13.10 ity of [place]2.[place].2.[place] [phone] [facility] 059 [facility] 2018-10-28 2018-10-28 [facility] 1.2.840.114 [id number] Univers 16:46:06 23:59:00 Encounter Madeleine Strauss [place] 350.1.13.10 ity of [place] 4.2.7.2.[place] [phone] [facility] [address] 2018-10-28 2018-10-28 Instructional Design Specialist 1, Adc Lab [facility] 1.2.840.114 [id number] Univers 16:41:14 16:56:14 Visit Madeleine Sullivan [place] 350.1.13.10 ity of [place] 4.2.7.2.686 [facility] [phone] [facility] [address] 2018-10-28 2018-10-28 Orders Doctor YANA 1.2.840.114 [id number] Univers 00:00:00 00:00:00 Only Unassigned, CARLOS 350.1.13.10 ity of [place] [facility] 4.2.7.2.686 Bernabe as [phone] [facility] [address] 2018-10-24 2018-10-24 Refisra [place] 1.2.840.114 [id number] Univers 00:00:00 00:00:00 Wislos [facility] HEALTH 350.1.13.10 it y of [facility] 4.2.7.2.686 [facility] [phone] [facility] 059 [facility] 2018-10-14 2018-10-14 Refill [place] 1.2.840.114 [id number] Univers 00:00:00 00:00:00 Min Dewey 350.1.13.10 i ty of [place].2.7.2.[place] [phone] [facility] 059 [address] [facility] 2018-10-01 2018-10-01 Orders Doctor MILLAN 1.2.840.114 [id number] Univers 00:00:00 00:00:00 Only Unassigned, CARLOS 350.1.13.10 ity of [place] [facility] 4.2.7.2.686 Bernabe as [phone] [facility] [address] 2018-09-26 2018-09-26 Instructional Design Specialist Lab, Adc Fam Pob I [facility] 1.2. 840.114 [id number] Univers 13:45:07 15:25:16 Visit Clare Gonsalves [facility] 350.1.13.1 0 ity of [place] 4.2.7.2.686 Bernabe as Professio [phone] [facility] nal [address] [place] Office Building One 2018-09-26 2018-09-26 Telephone Fac, Adc [facility] 1.2.840.114 [id number] Univers 00:00:00 00:00:00 Heart HEALTH 350.1.13.10 it y of Failure [place].2.7.2.[place] [phone] [facility] 059 [facility] 2018-09-10 2018-09-10 Office Major [facility] 1.2.840.114 [id number] Univers 12:36:16 13:37:40 Visit [employer] A Health 350.1.13.10 ity of [place] 4.2.7.2.686 Bernabe as Professio [phone] [facility] [address] [place] Office Building One 2018-09-02 2018-09-02 Orders Doctor YANA 1.2.840.114 [id number] Univers 00:00:00 00:00:00 Only Unassigned, CARLOS 350.1.13.10 ity of [place] [facility] 4.2.7.2.686 Bernabe as [phone] [facility] [address] Results Test Description Test Time Test Comments Results Result Comments Source POCT GLUCOSE (AUTOMATED) 2022-02-19 18:34:13 Test Item Value Reference Range Interpretation Comme nts POCT GLU (test code = 3213442875) 354 mg/dL 70-110 H Lab Interpretation (test code = 63263-4) Abnormal [facility] GLUCOSE (AUTOMATED)2022-02-19 14:51:34 Test Item Value Reference Range Interpretation Comments POCT GLU (test code = 1627546362) 158 mg/dL 70-110 H Lab Interpretation (test code = Abnormal 78551-8) [facility] GLUCOSE (AUTOMATED)2022-02-19 07:09:11 Test Item Value Reference Range Interpretation Comments POCT GLU (test code = 1235892055) 109 mg/dL 70-110 Lab Interpretation (test code = Normal 42681-5) [facility] GLUCOSE (AUTOMATED)2022-02-19 06:15:00 Test Item Value Reference Range Interpretation Comments POCT GLU (test code = 7643225950) 56 mg/dL 70-110 L Lab Interpretation (test code = Abnormal 35546-3) [facility] GLUCOSE (AUTOMATED)2022-02-19 03:41:03 Test Item Value Reference Range Interpretation Comments POCT GLU (test code = 2689545351) 197 mg/dL 70-110 H Lab Interpretation (test code = Abnormal 31242-5) [facility] GLUCOSE (AUTOMATED)2022-02-18 23:17:16 Test Item Value Reference Range Interpretation Comments POCT GLU (test code = [id number]) 240 mg/dL 70-110 H Lab Interpretation (test code = Abnormal 50313-7) [facility] GLUCOSE (AUTOMATED)2022-02-18 18:24:23 Test Item Value Reference Range Interpretation Comments POCT GLU (test code = [id number]) 274 mg/dL 70-110 H Lab Interpretation (test code = Abnormal 76437-4) [facility] GLUCOSE (AUTOMATED)2022-02-18 18:24:18 Test Item Value Reference Range Interpretation Comments POCT GLU (test code = 2923119736) 92 mg/dL 70-110 Lab Interpretation (test code = Normal 63222-0) [facility]lycer[facility] HDL[facility] - [id number] 12:27:34 Test Item Value Reference Range Interpretation Comments CHOL (test code = 146 mg/dL 120-200 [id number]) HDL (test code = 54 mg/dL See_Comment [Automated message] [id number]) The system [employer] generated this result transmit luis miguel reference range : >=50. The refer ence range was not u sed to interpret th is result as normal/abnormal . HDLC RATIO (test code = See_Comment [Au tomated message] 3383178563) The system [employer] generated this result transmit luis miguel reference range : <=4.5. The refe rence range was not u sed to interpret th is result as normal/abnormal . TRIG (test code = 113 mg/dL 30-170 6448963867) LDL CHOL (test code = 69 mg/dL See_Comment [Auto mated message] 33971-5) The system [employer] generated this result transmit luis miguel reference range : <=160. The refe rence range was not u sed to interpret th is result as normal/abnormal . VLDL (test code = 23 mg/dL 5-60 1159168138) Lab Interpretation (test Normal code = 22925-3) [id number] 12:27:34 Test Item Value Reference Range Interpretation Comments NT-proBNP (test code 87553 pg/mL See_Comment H [Autom ated = 8562557302) message] The system which generated this result transmitted reference range : <=450. The reference range was not used to interpret this result as normal/abnormal . SEN (test code = SEN) Biotin has been reported to cause a negative bias, interpret results relative to patient's use of biotin. Lab Interpretation Abnormal (test code = 58389-4) [facility] (NA, K, CL, CO2, GLUCOSE, BUN, CREATININE, CA)2022-02-18 12:27:14 Test Item Value Reference Range Interpretation Comments NA (test code = 137 mmol/L 135-145 4301609803) K (test code = 4.0 mmol/L 3.5-5.0 6120744610) CL (test code = 104 mmol/L 98-108 8772751933) CO2 TOTAL (test code = 25 mmol/L 23-31 5942231262) AGAP (test code = 2-16 8001108985) BUN (test code = 62 mg/dL 7-23 H 6946193647) GLUCOSE (test code = 90 mg/dL 70-110 6555475422) CREATININE (test code = 2.02 mg/dL 0.50-1.04 H 1237659411) CALCIUM (test code = 8.3 mg/dL 8.6-10.6 L 7918384218) eGFR (test code = mL/min/1.73m2 0769970360) SEN (test code = SEN) Association of [...] tests). Lab Interpretation Abnormal (test code = 89127-4) [facility] WITH [id number] 11:30:43 Test Item Value Reference Range Interpretation Comments WBC (test code = See_Comment [Automated 7990-2) message] The sy stem which generated this result transmitted reference range : 4.30 - 11.10 10*3/?L. The reference range was not used to interpret this result as normal/abnormal . RBC (test code = See_Comment L [Automated 419-8) message] The sy stem which generated this [...] RDW-SD (test code = 46.4 fL 39.0-49.9 58611-7) RDW-CV (test code = 13.2 % 12.0-15.5 788-0) PLT (test code = See_Comment [Automated 777-3) message] The sy stem which generated this result transmitted reference range : 166 - 358 10*3/ ?L. The reference r beltrna was not used to interpret this result as normal/abnormal . MPV (test code = 13.0 fL 9.5-12.9 H 41900-6) NRBC/100 WBC (test See_Comment [Automat ed code = 6635047794) message] The system which generated this result transmitted reference range : 0.0 - 10.0 /100 WBCs. The refer ence range was not u sed to interpret th is result as normal/abnormal . NRBC x10^3 (test code See_Comment [Auto mated = 4649475108) message] The s ystem which generated this result transmitted reference range : 10*3/?L. The reference range was not used to interpret this result as normal/abnormal . GRAN MAT (NEUT) % 58.4 % (test code = 770-8) IMM GRAN % (test code 0.30 % = 2135535176) LYMPH % (test code = 27.5 % 736-9) MONO % (test code = 9.3 % 5905-5) EOS % (test code = 4.2 % 713-8) BASO % (test code = 0.3 % 706-2) GRAN MAT x10^3(ANC) 3.71 10*3/uL 1.88-7.09 (test code = 3878492830) IMM GRAN x10^3 (test 0.00-0.06 code = 7774612014) LYMPH x10^3 (test code 1.75 10*3/uL 1.32-3.29 = 731-0) MONO x10^3 (test code 0.59 10*3/uL 0.33-0.92 = 742-7) EOS x10^3 (test code = 0.27 10*3/uL 0.03-0.39 711-2) BASO x10^3 (test code 0.01-0.07 = 704-7) Lab Interpretation Abnormal (test code = 00113-8) [facility] GLUCOSE (AUTOMATED)2022-02-18 02:39:08 Test Item Value Reference Range Interpretation Comments POCT GLU (test code = 6530010717) 196 mg/dL 70-110 H Lab Interpretation (test code = Abnormal 73757-5) [facility]-17 23:16:54 Test Item Value Reference Range Interpretation Comments POCT GLU (test code = 2153985701) 140 mg/dL 70-110 H Lab Interpretation (test code = Abnormal 79452-6) [facility] 19:44:53 Test Item Value Reference Range Interpretation Comments Height (test code = in 0960570263) Weight (test code = lbs 1575025298) Systolic BP (test code = mmHg 7367208370) Diastolic BP (test code mmHg = 3421628300) Heart Rate (test code = bpm 9054417036) BSA (test code = 1.81 m2 5689005501) Ao root diam (test code 3.30 cm = 1697416424) Aortic root (test code = 3.3 cm 4547230045) Ao root annulus (test 3.3 cm code = 1248219421) LVOT diameter (test code 1.89 cm = 5530560591) LVOT area (test code = 2.80 cm2 1119135630) LAV(MOD-sp4) (test code 52.90 mL = 7142224273) E wave decelartion time 0.17 s (test code = 4047450310) MV stenosis pressure 1/2 51.3 ms time (test code = 7448248807) MV Peak E Mily (test code 95.2 cm/s = 8280019824) MV Peak A Mily (test code 61.8 cm/s = 0818216517) E/A ratio (test code = ratio 6091591351) MV Prop V (test code = 23.30 cm/s 6314429711) MV E/e' septal (test 7.8 cm/s code = 4544378763) TR Peak Mily (test code = 310.8 cm/s 6812416578) Triscuspid Valve mmHg Regurgitation Peak Gradient (test code = 6747120024) Tapse (test code = 1.99 cm 9499773006) LVOT stroke volume (test 40.40 cm3 code = 3554809127) LVOT peak mily (test code 67.8 cm/s = 0177988179) LVOT mn grad (test code mmHg = 9428278346) AV LVOT peak gradient mmHg (test code = 7180474964) LVOT peak VTI (test code 14.4 cm = 4723007581) LV V1 mean (test code = 45.30 cm/s 6066246663) MR max PG (test code = 65.40 mm[Hg] 3231518317) MR max mily (test code = 404.30 cm/s 3046056767) Mr max mily (test code = 404.3 m/s 0755528739) LVIDD (test code = 6.30 cm 5264921316) Left Ventricular End 202.4 mL Diastolic Volume by Teichholz Method (test code = 5414655) IVS (test code = 0.94 cm 8899112075) Interventricular Septum 0.94 cm Diastolic Thickness by 2D (test code = 6942927) LVPWD (test code = 0.94 cm 1670438314) PW (test code = 0.94 cm 0.6-1.3 7467860536) EF(Teich) (test code = 19.10 % 7009181668) LVIDS (test code = 5.80 cm 5963191441) Left Ventricular End 163.8 mL Systolic Volume by Teichholz Method (test code = 7569829) FS (test code = 9 % 7503577463) EF - 2D (test code = 19.10 % 42290797) LA size (test code = 3.5 cm 6598630104) Radiology Study observation (narrative) (test code = 67420-7) SEN (test code = SEN) Table formatting [...] mL of Lumason ultrasound enhancing agent used. [facility] GLUCOSE (AUTOMATED)2022-02-17 18:19:03 Test Item Value Reference Range Interpretation Comments POCT GLU (test code = 0250132538) 160 mg/dL 70-110 H Lab Interpretation (test code = Abnormal 30276-5) [facility] GLUCOSE (AUTOMATED)2022-02-17 14:06:55 Test Item Value Reference Range Interpretation Comments POCT GLU (test code = 7160411909) 101 mg/dL 70-110 Lab Interpretation (test code = Normal 44601-7) [facility] GLUCOSE (AUTOMATED)2022-02-17 03:58:48 Test Item Value Reference Range Interpretation Comments POCT GLU (test code = 6112906029) 278 mg/dL 70-110 H Lab Interpretation (test code = Abnormal 30736-9) [facility] GLUCOSE (AUTOMATED)2022-02-17 03:21:46 Test Item Value Reference Range Interpretation Comments POCT GLU (test code = 5866463632) 279 mg/dL 70-110 H Lab Interpretation (test code = Abnormal 36184-8) [facility]A1C)2022-02-17 01:58:04 Test Item Value Reference Range Interpretation Comments HGB A1C (test code = 10.0 % 4.0-5.7 H 4548-4) SEN (test code = SEN) Reference RangesNormal: <5.7%Prediabetes: 5.7 - 6.4%Diabetes: > 6.5% Lab Interpretation (test Abnormal code = 60077-5) [facility] [id number] 17:30:57 Test Item Value Reference Interpretation Comments Range TROPONIN I (test 0.028 ng/mL See_Comment [Automated code = 4875405310) message] The system which generated this result [...] biotin. Lab Interpretation Normal (test code = 12276-6) [facility] [id number] 17:27:54 Test Item Value Reference Range Interpretation Comments NT-proBNP (test code 22430 pg/mL See_Comment H [Autom ated = 7661248876) message] The system which generated this result transmitted reference range : <=450. The reference range was not used to interpret this result as normal/abnormal . SEN (test code = SEN) Biotin has been reported to cause a negative bias, interpret results relative to patient's use of biotin. Lab Interpretation Abnormal (test code = 39011-1) [facility] (NA, K, CL, CO2, GLUCOSE, BUN, CREATININE, CA)2022-02-16 17:19:15 Test Item Value Reference Range Interpretation Comments NA (test code = 135 mmol/L 135-145 1982618604) K (test code = 4.7 mmol/L 3.5-5.0 0404958806) CL (test code = 104 mmol/L 98-108 0048998555) CO2 TOTAL (test code = 23 mmol/L 23-31 4867098909) AGAP (test code = 2-16 7403050736) BUN (test code = 58 mg/dL 7-23 H 3331624023) GLUCOSE (test code = 260 mg/dL 70-110 H 3001453453) CREATININE (test code = 1.78 mg/dL 0.50-1.04 H 8676478045) CALCIUM (test code = 8.2 mg/dL 8.6-10.6 L 6997640761) eGFR (test code = mL/min/1.73m2 2751716452) SEN (test code = SEN) Association of [...] tests). Lab Interpretation Abnormal (test code = 00369-4) [facility]92343[facility] (ALB,T.PRO,BILI T,BU/BC,ALT,AST,ALK PHOS)2022-02-16 17:19:15 Test Item Value Reference Range Interpretation Comments TOTAL BILI (test code = 3561009341) 0.4 mg/dL 0.1-1.1 BILI UNCON (test code = 1604768604) 0.3 mg/dL 0.1-1.1 BILI CONJ (test code = 9409106596) 0.0 mg/dL 0.0-0.3 T PROTEIN (test code = 7906758561) 6.8 g/dL 6.3-8.2 ALBUMIN (test code = 5810764689) 3.8 g/dL 3.5-5.0 ALK PHOS (test code = 3685859857) 146 U/L 34-122 H ALTv (test code = 1742-6) 29 U/L 5-35 AST(SGOT) (test code = 8355182647) 28 U/L 13-40 Lab Interpretation (test code = Abnormal 70968-9) [facility] 17:19:15 Test Item Value Reference Range Interpretation Comments LIPASE (test code = 1225309266) 46 U/L 0-220 Lab Interpretation (test code = Normal 74269-4) [facility] [id number] 17:12:53 Test Item Value Reference Range Interpretation Comments WBC (test code = See_Comment [Automated 1490-2) message] The sy stem which generated this result transmitted reference range : 4.30 - 11.10 10*3/?L. The reference range was not used to interpret this result as normal/abnormal . RBC (test code = See_Comment L [Automated 549-8) message] The sy stem which generated this [...] RDW-SD (test code = 47.8 fL 39.0-49.9 69143-7) RDW-CV (test code = 13.5 % 12.0-15.5 788-0) PLT (test code = See_Comment [Automated 777-3) message] The sy stem which generated this result transmitted reference range : 166 - 358 10*3/ ?L. The reference r beltran was not used to interpret this result as normal/abnormal . MPV (test code = 12.9 fL 9.5-12.9 47727-2) NRBC/100 WBC (test See_Comment [Automat ed code = 1629699788) message] The system which generated this result transmitted reference range : 0.0 - 10.0 /100 WBCs. The refer ence range was not u sed to interpret th is result as normal/abnormal . NRBC x10^3 (test code See_Comment [Auto mated = 1925508892) message] The s ystem which generated this result transmitted reference range : 10*3/?L. The reference range was not used to interpret this result as normal/abnormal . GRAN MAT (NEUT) % 75.4 % (test code = 770-8) IMM GRAN % (test code 0.20 % = 3004733034) LYMPH % (test code = 14.9 % 736-9) MONO % (test code = 7.7 % 5905-5) EOS % (test code = 1.6 % 713-8) BASO % (test code = 0.2 % 706-2) GRAN MAT x10^3(ANC) 6.77 10*3/uL 1.88-7.09 (test code = 7108375152) IMM GRAN x10^3 (test 0.00-0.06 code = 7769937595) LYMPH x10^3 (test code 1.34 10*3/uL 1.32-3.29 = 731-0) MONO x10^3 (test code 0.69 10*3/uL 0.33-0.92 = 742-7) EOS x10^3 (test code = 0.14 10*3/uL 0.03-0.39 711-2) BASO x10^3 (test code 0.01-0.07 = 704-7) Lab Interpretation Abnormal (test code = 38215-0) [facility] HEMOGLOBIN A1C [id number] 15:15:00 Test Item Value Reference Range Interpretation Comments POCT HBA1C (test code = 4548-4) 7.6 % 4-6 A Lab Interpretation (test code = Abnormal 08719-3) [facility] HEMOGLOBIN A1C [id number] 15:15:00 Test Item Value Reference Range Interpretation Comments POCT HBA1C (test code = 4548-4) 7.6 % 4-6 A Lab Interpretation (test code = Abnormal 94391-3) [facility]
--- NOTE | 2022-05-05 13:21 | RAD REPORT ---
EXAM DESCRIPTION: RAD - Chest Single View - 05/05/2022 12:58 pm CLINICAL HISTORY: DYSPNEA Chest pain. COMPARISON: Chest Single View dated 05/02/2022; Chest Single View dated 11/04/2021; Chest Pa And Lat ( 2 Views) dated 09/29/2021; Chest Single View dated 09/14/2021 FINDINGS: Portable technique limits examination quality. Moderate bilateral pulmonary opacities compatible with pulmonary edema. The heart is mildly enlarged. No displaced fractures.Multi lead pacer/defibrillator device. IMPRESSION: Moderate CHF.
[2022-05-05 14:31] LABS: Absolute Lymphocytes (CBC) 1.2 K/uL (0.7-4.9); Hematocrit 32.4 % (36.0-45.0); Lymphocytes % 20.4 % (15.3-44.8); MCV 93.5 fL (80-100); MPV 10.5 fL (7.6-11.3); RBC Red Blood Cell Count 3.47 M/uL (3.86-4.86)
[2022-05-05 14:51] LABS: Albumin 3.3 g/dL (3.4-5.0); Bilirubin Total 0.2 mg/dL (0.2-1.0); Protein, Total 7.3 g/dL (6.4-8.2); Troponin High Sensitivity 18.8 pg/mL (<58.9)
--- NOTE | 2022-05-05 15:07 | ER ---
Nurse's Notes [facility] Name: Teena Simpson Age: 77 yrs Sex: Female : 1945 Arrival Date: 05/05/2022 Time: 11:48 Bed 15 Private MD: Diagnosis: Acute on chronic systolic (congestive) heart failure Presentation: 05/05 11:59 Chief complaint: Cough and congestion x 5 days, SOB and mid back pain since yesterday. hb Seen in ED for same s/s on 04/04. Coronavirus screen: Client presents with at least one sign or symptom that may indicate coronavirus-19. Standard/surgical mask placed on the client. Provider contacted for isolation considerations. Ebola Screen: No symptoms or risks identified at this time. Initial Sepsis Screen: Does the patient meet any 2 criteria? No. Patient's initial sepsis screen is negative. Does the patient have a suspected source of infection? No. Patient's initial sepsis screen is negative. Risk Assessment: Do you want to hurt yourself or someone else? Patient reports no desire to harm self or others. Onset of symptoms was May 02, 2022. 11:59 Method Of Arrival: Ambulatory hb 11:59 Acuity: TYSON 3 hb Triage Assessment: 12:10 General: Appears in no apparent distress. uncomfortable, Behavior is calm, cooperative, eh3 appropriate for age. Respiratory: the patient has moderate shortness of breath. Respiratory: Reports shortness of breath at rest Onset: The symptoms/episode began/occurred 5 days ago. Historical: - Allergies: 12:01 Augmentin; hb 12:01 Cipro; hb - Home Meds: 12:10 atorvastatin 40 mg Oral tab 1 tab every day at bedtime [Active]; Eliquis 5 mg Oral eh3 tablet 1 tab 2 times per day [Active]; furosemide 40 mg Oral tab 1 tab daily [Active]; metoprolol succinate 50 mg Oral Tablet, Extended Release 24 hr 1 tab 2 times per day [Active]; Novolin N NPH U-100 Insulin 100 unit/mL Sub-Q suspension 20 units every evening [Active]; Phenytoin 100mg Oral 1 tabs 2 times per day [Active]; - PMHx: 12:01 Anxiety; Myocardial infarction; Low HR; Kidney failure stage 4; Hypertension; Diabetes hb - IDDM; CHF; Atrial Fib; High Cholesterol; neuropathy; Seizures; - PSHx: 12:01 Appendectomy; Pacemaker-Defib; hb - Immunization history:: Adult Immunizations up to date. - Family history:: not pertinent. - Social history:: Smoking status: unknown. Screenin:[facility] ED Fall Risk Assessment (Adult) Score/Fall Risk Level 0 - 2 = Low Risk. Abuse eh3 screen: Denies threats or abuse. Denies injuries from another. Nutritional screening: No deficits noted. Tuberculosis screening: No symptoms or risk factors identified. Assessment: 12:10 General: Appears in no apparent distress. uncomfortable, Behavior is calm, cooperative, eh3 appropriate for age. Pain: Denies pain. Neuro: Level of Consciousness is awake, alert, obeys commands, Oriented to person, place, time, situation. Cardiovascular: Capillary refill < 3 seconds Patient's skin is warm and dry. Rhythm is A-V sequential pacer. Respiratory: Airway is patent Respiratory effort is even, labored, Breath sounds are coarse bilaterally. GI: Abdomen is round non-distended. : No signs and/or symptoms were reported regarding the genitourinary system. EENT: No signs and/or symptoms were reported regarding the EENT system. Derm: Skin is pink, warm \T\ dry. Musculoskeletal: Circulation, motion, and sensation intact. 13:10 Reassessment: Patient appears in no apparent distress at this time. Patient and/or eh3 family updated on plan of care and expected duration. Pain level reassessed. Patient is alert, oriented x 3, equal unlabored respirations, skin warm/dry/pink. 14:00 Reassessment: Patient appears in no apparent distress at this time. Patient and/or eh3 family updated on plan of care and expected duration. Pain level reassessed. Patient is alert, oriented x 3, equal unlabored respirations, skin warm/dry/pink. 15:00 Reassessment: Patient appears in no apparent distress at this time. Patient and/or eh3 family updated on plan of care and expected duration. Pain level reassessed. Patient is alert, oriented x 3, equal unlabored respirations, skin warm/dry/pink. 16:00 Reassessment: Patient appears in no apparent distress at this time. Patient and/or eh3 family updated on plan of care and expected duration. Pain level reassessed. Patient is alert, oriented x 3, equal unlabored respirations, skin warm/dry/pink. 17:00 Reassessment: Patient appears in no apparent distress at this time. Patient and/or 3 family updated on plan of care and expected duration. Pain level reassessed. Patient is alert, oriented x 3, equal unlabored respirations, skin warm/dry/pink. 18:00 Reassessment: Patient appears in no apparent distress at this time. Patient and/or 3 family updated on plan of care and expected duration. Pain level reassessed. Patient is alert, oriented x 3, equal unlabored respirations, skin warm/dry/pink. Vital Signs: 11:59 BP 123 / 69; Pulse 89; Resp 18; Temp 98.6; Pulse Ox 100% on R/A; Weight 79.38 kg; hb Height 5 ft. 0 in. ; Pain 3/10; 13:10 BP 123 / 69; Pulse 90; Resp 19; Pulse Ox 98% on R/A; eh3 14:00 BP 118 / 69; Pulse 90; Resp 18; Pulse Ox 98% on R/A; eh3 15:00 BP 123 / 58; Pulse 90; Resp 17; Pulse Ox 100% on R/A; eh3 16:00 BP 125 / 90; Pulse 90; Resp 20; Pulse Ox 99% on R/A; eh3 17:00 BP 122 / 63; Pulse 90; Resp 15; Pulse Ox 96% on R/A; eh3 18:00 BP 128 / 68; Pulse 90; Resp 16; Pulse Ox 97% on R/A; eh3 19:00 BP 124 / 55; Pulse 90; Resp 18; Pulse Ox 95% ; eh3 11:59 Body Mass Index 34.18 (79.38 kg, 152.4 cm) hb 11:59 Pain Scale: Adult hb ED Course: 11:48 Patient arrived in ED. mr 11:49 Contreras Natarajan MD is Attending Physician. rt 12:01 Triage completed. hb 12:04 Maritza Urbina, WM is Primary Nurse. eh3 12:10 Patient has correct armband on for positive identification. Bed in low position. Call [facility] light in reach. Side rails up X2. Adult w/ patient. Client placed on continuous cardiac and pulse oximetry monitoring. NIBP monitoring applied. Door closed. Noise minimized. Lights dimmed. Warm blanket given. 12:10 Arm band placed on. eh3 12:59 Chest Single View XRAY In Process Unspecified. EDMS 14:22 Inserted saline lock: 22 gauge in right antecubital area, using aseptic technique. 3 Blood collected. 15:06 Ihsan Fields MD is Hospitalizing Provider. rt 19:25 No provider procedures requiring assistance completed. Patient admitted, IV remains in [address] Administered Medications: 15:30 Drug: Furosemide IVP 40 mg Route: IVP; Site: right antecubital; 3 19:44 Follow up: Response: No adverse reaction 3 Medication: 19:25 VIS not applicable for this client. 3 Outcome: 15:06 Decision to Hospitalize by Provider. rt 20:21 Admitted to Med/surg accompanied by tech, family with patient, via wheelchair, room 3 216, with chart, Report called to Eulalio 20:21 Condition: stable 20:21 Instructed on the need for admit. 20:21 Patient left the ED. [facility] Signatures: [facility] Maris[facility] Jennifer French, RN WM Maritza Urbina RN RN [facility] Contreras Natarajan MD MD rt Corrections: (The following items were deleted from the chart) 19:26 12:10 Respiratory: Reports shortness of breath at rest Onset: The symptoms/episode [facility] began/occurred 2 months ago, [facility] 19:42 19:39 Discharged to home ambulatory, with family, [place] [address] 19:42 19:39 Condition: stable [place] [address] 19:42 19:39 Discharge instructions given to patient, Instructed on discharge instructions, [facility] follow up and referral plans. medication usage, Demonstrated understanding of instructions, follow-up care, medications, Prescriptions given X 3, 3
--- NOTE | 2022-05-05 15:07 | EDPHYS ---
Physician Documentation [facility] Name: Teena Simpson Age: 77 yrs Sex: Female : 1945 Arrival Date: 05/05/2022 Time: 11:48 Bed 15 Private MD: ED Physician Contreras Natarajan HPI: 05/05 13:30 This 77 yrs old Female presents to ER via Ambulatory with complaints of rt Shortness Of Breath. 13:30 Patient presents to the ED with dyspnea, worse at nighttime. She was seen in the ED 3 rt days ago, diagnosed with CHF, told to double her Lasix. The patient was deemed to be stable for discharge at that time. Patient states that symptoms have worsened when she has worsening dyspnea now. Denies any chest pain. Denies other acute complaints at this time, symptoms are moderate in severity, no other aggravating or alleviating factors.. Historical: - Allergies: 12:01 Augmentin; hb 12:01 Cipro; hb - Home Meds: 12:10 atorvastatin 40 mg Oral tab 1 tab every day at bedtime [Active]; Eliquis 5 mg Oral eh3 tablet 1 tab 2 times per day [Active]; furosemide 40 mg Oral tab 1 tab daily [Active]; metoprolol succinate 50 mg Oral Tablet, Extended Release 24 hr 1 tab 2 times per day [Active]; Novolin N NPH U-100 Insulin 100 unit/mL Sub-Q suspension 20 units every evening [Active]; Phenytoin 100mg Oral 1 tabs 2 times per day [Active]; - PMHx: 12:01 Anxiety; Myocardial infarction; Low HR; Kidney failure stage 4; Hypertension; Diabetes hb - IDDM; CHF; Atrial Fib; High Cholesterol; neuropathy; Seizures; - PSHx: 12:01 Appendectomy; Pacemaker-Defib; hb - Immunization history:: Adult Immunizations up to date. - Family history:: not pertinent. - Social history:: Smoking status: unknown. ROS: 13:30 Constitutional: Negative for fever, chills, and weight loss, Cardiovascular: Negative rt for chest pain, palpitations, and edema, Abdomen/GI: Negative for abdominal pain, nausea, vomiting, diarrhea, and constipation, MS/Extremity: Negative for injury and deformity, Skin: Negative for injury, rash, and discoloration, Neuro: Negative for headache, weakness, numbness, tingling, and seizure, Psych: Negative for depression, anxiety, suicide ideation, homicidal ideation, and hallucinations. 13:30 Respiratory: Positive for cough, dyspnea on exertion, orthopnea, shortness of breath. Exam: 13:30 ECG was reviewed by the Attending Physician. rt 13:32 Constitutional: This is a well developed, well nourished patient who is awake, alert, rt and in no acute distress. Head/Face: Normocephalic, atraumatic. Chest/axilla: Normal chest wall appearance and motion. Nontender with no deformity. No lesions are appreciated. Cardiovascular: Regular rate and rhythm with a normal S1 and S2. No gallops, murmurs, or rubs. Normal PMI, no JVD. No pulse deficits. Abdomen/GI: Soft, non-tender, with normal bowel sounds. No distension or tympany. No guarding or rebound. No evidence of tenderness throughout. Skin: Warm, dry with normal turgor. Normal color with no rashes, no lesions, and no evidence of cellulitis. MS/ Extremity: Pulses equal, no cyanosis. Neurovascular intact. Full, normal range of motion. Neuro: Awake and alert, GCS 15, oriented to person, place, time, and situation. Cranial nerves II-XII grossly intact. Motor strength 5/5 in all extremities. Sensory grossly intact. Cerebellar exam normal. Normal gait. Psych: Awake, alert, with orientation to person, place and time. Behavior, mood, and affect are within normal limits. 13:32 Respiratory: Bibasilar crackles, no respiratory distress. Vital Signs: 11:59 BP 123 / 69; Pulse 89; Resp 18; Temp 98.6; Pulse Ox 100% on R/A; Weight 79.38 kg; hb Height 5 ft. 0 in. ; Pain 3/10; 13:10 BP 123 / 69; Pulse 90; Resp 19; Pulse Ox 98% on R/A; eh3 14:00 BP 118 / 69; Pulse 90; Resp 18; Pulse Ox 98% on R/A; eh3 15:00 BP 123 / 58; Pulse 90; Resp 17; Pulse Ox 100% on R/A; eh3 16:00 BP 125 / 90; Pulse 90; Resp 20; Pulse Ox 99% on R/A; eh3 17:00 BP 122 / 63; Pulse 90; Resp 15; Pulse Ox 96% on R/A; eh3 18:00 BP 128 / 68; Pulse 90; Resp 16; Pulse Ox 97% on R/A; eh3 19:00 BP 124 / 55; Pulse 90; Resp 18; Pulse Ox 95% ; eh3 11:59 Body Mass Index 34.18 (79.38 kg, 152.4 cm) hb 11:59 Pain Scale: Adult hb MDM: 12:04 Patient medically screened. rt 15:06 Differential diagnosis: CHF, pneumonia, pneumothorax, pulmonary embolism. Antibiotic rt administration: Not indicated, the patient does not have an appreciated infiltrate. Data reviewed: vital signs, nurses notes, lab test result(s), EKG, radiologic studies. Consideration of Admission/Observation Patient was admitted/placed on observation. Management of patient was discussed with the following: Hospitalist: Agrees to admit. I considered the following discharge prescriptions or medication management in the emergency department Medications were administered in the Emergency Department. See MAR. Test considered but Not performed: CT: Low suspicion for PE, CT angiogram not indicated. Counseling: I had a detailed discussion with the patient and/or guardian regarding: the historical points, exam findings, and any diagnostic results supporting the discharge/admit diagnosis, lab results, radiology results, the need for further work-up and treatment in the hospital. Response to treatment: the patient's symptoms have mildly improved after treatment. 05/05 12:11 Order name: CBC with Diff; Complete Time: 14:53 rt 05/05 12:11 Order name: CMP; Complete Time: 14:53 rt 05/05 12:11 Order name: Troponin High Sensitivity; Complete Time: 14:53 rt 05/05 12:11 Order name: BNP; Complete Time: 14:53 rt 05/05 16:35 Order name: Creatinine EDMS 05/05 16:35 Order name: Digoxin Level EDMS 05/05 16:35 Order name: Urinalysis EDMS 05/05 16:35 Order name: Basic Metabolic Panel EDMS 05/05 16:35 Order name: Basic Metabolic Panel EDMS 05/05 16:35 Order name: Basic Metabolic Panel EDMS 05/05 16:35 Order name: Basic Metabolic Panel EDMS 05/05 16:35 Order name: CBC with Automated Diff EDMS 05/05 16:35 Order name: CBC with Automated Diff EDMS 05/05 16:35 Order name: CBC with Automated Diff EDMS 05/05 16:35 Order name: CBC with Automated Diff EDMS 05/05 17:41 Order name: SARS RAPID ss 05/05 19:14 Order name: SARS-COV-2 Antigen Rapid EDMS 05/05 12:11 Order name: Chest Single View XRAY; Complete Time: 13:23 rt 05/05 16:51 Order name: Echo with Doppler EDMS 05/05 12:11 Order name: EKG; Complete Time: 12:12 rt 05/05 16:35 Order name: Heart Healthy EDMS 05/05 12:11 Order name: EKG - Nurse/Tech; Complete Time: 13:21 rt EC:30 Rate is 89 beats/min. Rhythm is regular, Paced with No ectopy, ST, T waves, conduction rt consistent with ventricularly paced rhythm. Left axis deviation noted. QT interval is prolonged at 564 msec. No Q waves. Administered Medications: 15:30 Drug: Furosemide IVP 40 mg Route: IVP; Site: right antecubital; [facility] 19:44 Follow up: Response: No adverse reaction [facility] Disposition Summary: 05/05/22 15:06 Hospitalization Ordered Hospitalization Status: Observation rt Provider: Ihsan Fields rt Location: Telemetry/MedSurg (observation) rt Condition: Stable rt Problem: an acute exacerbation rt Symptoms: are unchanged rt Bed/Room Type: Standard rt Room Assignment: 216(05/05/22 19:21) cg Diagnosis - Acute on chronic systolic (congestive) heart failure rt Forms: - Medication Reconciliation Form rt - SBAR form rt Signatures: Dispatcher [employer] Jeanette Lorenz RN RN cg Baxter, Heather, RN RN Maritza Urbina RN RN 3 Contreras Natarajan MD MD rt Corrections: (The following items were deleted from the chart) 19:21 15:06 rt cg
[2022-05-05] MEDS ORDERED: FUROSEMIDE 40 MG/4 ML VIAL ONE (15:36)
[2022-05-05] MEDS ORDERED: ONDANSETRON 4 MG/2 ML VIAL IV PRN (16:27)
[2022-05-05] MEDS: INSULIN -REGULAR HUMAN 50 UNIT/0.5 ML ML SQ SCH ×2 (16:30→22:18)
--- NOTE | 2022-05-05 16:38 | P.HP ---
Certification for Inpatient Patient admitted to: Observation With expected LOS: <2 Midnights Patient will require the following post-hospital care: None Practitioner: I am a practitioner with admitting privileges, knowledge of patient current condition, hospital course, and medical plan of care. Services: Services provided to patient in accordance with Admission requirements found in Title 42 Section 412.3 of the Code of Federal Regulations Patient History Date of Service: 05/05/22 Primary Care Provider: Adonis Reason for admission: CHF exacerbation History of Present Illness: This is a 77-year-old female with past medical history significant for anxiety, myocardial infarction, kidney failure stage IV, hypertension, diabetes type 2 insulin-dependent, systolic CHF with EF 30-35%, atrial fib with pacemaker and defibrillator, hyperlipidemia, neuropathy, and seizures. Patient presents to the emergency with complaints of shortness of breath, patient stated that her symptoms started yesterday, she reports associated symptoms of cough, headache, nausea and vomiting, back pain, and fatigue. She also reported low blood sugars due to poor appetite. And recent weight loss of 40 pounds due to poor appetite. Patient was seen in the ED 3 days ago and was diagnosed with CHF and was told to double her Lasix dose. Her chest x-ray in the ED demonstrated CHF. Patient will be admitted under the care of Dr. Fields. Cardiology will be consulted for further recommendations. Allergies amoxicillin [From Augmentin] Adverse Reaction (Verified 04/07/21 23:03) Nausea/Vomiting ciprofloxacin Adverse Reaction (Verified 04/07/21 23:04) Nausea/Vomiting clavulanic acid [From Augmentin] Adverse Reaction (Verified 04/07/21 23:03) Nausea/Vomiting Home Medications: Amlodipine [Norvasc*] 10 mg PO DAILY 08/07/21 Apixaban [Eliquis] 5 mg PO BID 08/07/21 Atorvastatin Calcium [Lipitor] 40 mg PO BEDTIME 08/07/21 Furosemide [Lasix*] 40 mg PO DAILY 08/07/21 Insulin NPH Human Isophane [Novolin N] 30 unit SQ 0800,199908/07/21 Metoprolol Succinate [Toprol Xl] 50 mg PO BID 08/07/21 PHENYTOIN ER Cap [Dilantin ER Cap*] 100 mg PO BID 08/07/21 Sennosides/Docusate Sodium [Senna-Docusate Sodium Tablet] 1 each PO DAILY #30 tablet 08/10/21 Digoxin [Lanoxin*] 0.125 mg PO Q48H 11/04/21 Hydralazine [Apresoline*] 25 mg PO TID 11/04/21 Insulin Lispro [Humalog*] 25 unit SQ BID 11/04/21 Ondansetron [Zofran] 4 mg PO Q8H PRN #20 tab 11/05/21 - Past Medical/Surgical History Diabetic: Yes -: seizures -: Atrial fibrillation on chronic anticoagulation -: Diabetes mellitus type 2insulin-dependent -: hypertension -: hyperlipidemia -: Chronic systolic congestive heart failure -: CAD -: CKD 4 -: neuropathy -: w?EF 20-25% -: defibrilator -: PNA -: defib/pacemaker placement x2 -: exploratory lap -: appendectomy Psychosocial/ Personal History: Patient lives patient lives at home with family - Family History Father -: Lung disease Mother -: Heart disease, Hypertension, Diabetes Sister -: Diabetes Brother -: Diabetes, Kidney disease - Social History Smoking Status: Never smoker Alcohol use: No CD- Drugs: No Caffeine use: Yes Place of Residence: Home Review of Systems 10-point ROS is otherwise unremarkable General: Weakness Respiratory: Cough, Shortness of Breath, SOB with Excertion Gastrointestinal: Nausea, Vomiting Musculoskeletal: Back Pain Neurological: Weakness Physical Examination - Vital Signs Temperature: 98.6 F Blood Pressure: 120/100 Pulse: 90 Respirations: 23 Pulse Ox (%): 100 - Physical Exam General: Alert, In no apparent distress, Oriented x3 HEENT: Atraumatic, Normocephalic, PERRLA Neck: Supple Respiratory: Crackles/rales Cardiovascular: Normal pulses, Regular rate/rhythm Capillary refill: <2 Seconds Gastrointestinal: Normal bowel sounds Musculoskeletal: No clubbing, No swelling, No contractures Integumentary: No rashes, No breakdown Neurological: Normal speech, Normal strength at 5/5 x4 extr, Normal tone Lymphatics: No axilla or inguinal lymphadenopathy - Studies Laboratory Data (last 24 hrs) 05/05/22 14:19: Sodium 137, Potassium 4.0, BUN 61 H, Creatinine 1.98 H, Glucose 296 H, Total Bilirubin 0.2, AST 21, ALT 40, Alkaline Phosphatase 118 H 05/05/22 14:19: WBC 6.10, Hgb 10.7 L, Hct 32.4 L, Plt Count 190 Assessment and Plan - Plan Assessment CHF exacerbation FELICIA Diabetes type 2 insulin-dependent Hypertension History of [place] Anxiety Atrial fib Hyperlipidemia Plan Continue IV Lasix with nebulizer treatment Cardiology consulted Troponin trending Echo pending, last ECHO EF 30-35 % in 2020 Continue aspirin and Lipitor Resume home medication when appropriate Blood sugars ACHS with sliding scale insulin Continue home medications, avoid NSAIDs, IV contrast. Counseled nephrology if there is worsening renal function. DVT PPX- Eliquis Full code Discharge Plan: Home Plan to discharge in: 48 Hours - Advance Directives Does patient have a Living Will: No Does patient have a Durable POA for Healthcare: No - Code Status/Comfort Care Code Status Assessed: Yes (Full code) Critical Care: No Time Spent Managing Pts Care (In Minutes): 50
[2022-05-05 17:34] LABS: Digoxin Level 0.2 ng/mL (0.80-2.00)
[2022-05-05 19:13] LABS: SARS-CoV-2 Antigen Rapid Res Negative (Negative)
[2022-05-05] MEDS ORDERED: ALBUTEROL 2.5 MG/3 ML NEB SOL ONE (20:10)
[2022-05-05] MEDS: ALBUTEROL 2.5 MG/3 ML NEB SOL NEB SCH (20:10)
[2022-05-05] MEDS: METOPROLOL XL 50 MG TAB PO SCH (22:15)
[2022-05-05] MEDS: FUROSEMIDE 40 MG/4 ML VIAL IV SCH (22:15)
[2022-05-05] MEDS: ATORVASTATIN 40 MG TAB PO SCH (22:16)
[2022-05-05] MEDS: HYDRALAZINE HCL 25 MG TABLET PO SCH (22:16)
[2022-05-05] MEDS: APIXABAN 5 MG TABLET PO SCH (22:16)
[2022-05-06] MEDS: PHENYTOIN ER 100 MG CAP PO SCH ×3 (01:05→21:02)
[2022-05-06] MEDS: ALPRAZOLAM 0.25 MG TABLET PO PRN (01:05)
[2022-05-06] MEDS: ALBUTEROL 2.5 MG/3 ML NEB SOL NEB SCH ×4 (01:45→20:30)
[2022-05-06 01:53] VITALS: BMI 34.2
[2022-05-06] MEDS: ACETAMINOPHEN 500 MG TAB PO PRN ×2 (05:49→23:17)
[2022-05-06] MEDS: METOPROLOL XL 50 MG TAB PO SCH ×2 (05:50→18:23)
--- NOTE | 2022-05-06 06:55 | P.PN ---
Date of Service: 05/06/22 Subjective: Feeling better; breathing has improved ambulating w/o assistance reports ongoing chronic rectal bleeding - no change no new/worsening symptoms ROS: 10 point ROS as noted above, otherwise negative Physical Exam: GEN: Alert, oriented, NAD HEENT: Normal conjunctiva, sclera anicteric CV: Irregularly irregular rhythm, trace b/l pedal edema Pulm: Nonlabored respirations on room air, mild b/l crackles / diminished at bases bilaterally ABD: Soft, nontender, nondistended Neuro: Normal speech, normal affect Problem List: Acute on chronic CHF exacerbation, systolic CKD 4 Diabetes type 2, insulin-dependent Hypertension History of [place] Anxiety Atrial fib, chronic; on anticoagulation Hyperlipidemia CHF Cardiology consulted Troponin negative initially, trend Echo pending, last EF 30-35 % in 2019 edematous on admission; CXR: moderate CHF improving weaning to room air continue IV lasix Continue aspirin and Lipitor Continue home medications, avoid NSAIDs, IV contrast Nephrology consulted rectal bleeding - pt states almost everyday since colonoscopy ~year ago; varies in amount not more than usual has GI appointment Sunday to schedule procedure Afib, chronic 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
[2022-05-06 07:01] LABS: Absolute Lymphocytes (CBC) 1.5 K/uL (0.7-4.9); Lymphocytes % 21.9 % (15.3-44.8); MCV 92.8 fL (80-100); MPV 10.4 fL (7.6-11.3); RBC Red Blood Cell Count 3.44 M/uL (3.86-4.86)
[2022-05-06 07:20] LABS: Potassium 3.6 mEq/L (3.5-5.1)
[2022-05-06 08:34] LABS: Specific Gravity 1.013 (1.005-1.030); Urine Bacteria None Seen /HPF (<20); Urine Bilirubin NEGATIVE (Negative); Urine Blood Negative (Negative); Urine Clarity Clear (Clear); Urine Color Light-Yellow (Yellow); Urine Glucose NEGATIVE (Negative); Urine Mucus Slight /HPF (None Seen); Urine Protein 1+ (Negative); Urine RBC <5 /HPF (None Seen); Urine Urobilinogen Normal (Normal)
[2022-05-06] MEDS ORDERED: POTASSIUM CL SA 10 MEQ TAB PO ONE (09:00)
[2022-05-06] MEDS ORDERED: PHENYTOIN ER 100 MG CAP PO SCH (09:00)
[2022-05-06] MEDS ORDERED: AMLODIPINE 10 MG TAB PO SCH (09:00)
[2022-05-06] MEDS: HYDRALAZINE HCL 25 MG TABLET PO SCH ×2 (09:00→14:00)
[2022-05-06] MEDS: INSULIN -REGULAR HUMAN 50 UNIT/0.5 ML ML SQ SCH ×4 (10:00→21:06)
[2022-05-06] MEDS: APIXABAN 5 MG TABLET PO SCH ×2 (10:02→21:01)
[2022-05-06] MEDS: DIGOXIN 0.125 MG TABLET PO SCH (10:04)
[2022-05-06] MEDS: FUROSEMIDE 40 MG/4 ML VIAL IV SCH ×2 (10:05→17:22)
[2022-05-06] MEDS: ATORVASTATIN 40 MG TAB PO SCH (21:01)
--- NOTE | 2022-05-07 00:13 | CON ---
Date of Consultation: 05/06/2022 Chief Complaint: [id number] kidney injury, severe prerenal azotemia, cardiorenal syndrome. History Of Present Illness: Patient is a 77-year-old woman with past medical history significant for anxiety; myocardial infarction; chronic kidney disease stage 4; hypertension; diabetic kidney diseas e; hypertensive heart and kidney disease; systolic congestive heart failure with ejection fraction of 30% to 35%; atrial fibrillation with pacemaker and defibrillator; hyperlipidemia; neuropathy; and se izures. The patient presents to the emergency room with complaints of shortness of breath and chest discomfort. Patient was having some difficulty with ambulation. She was reporting nonproductive cou gh, headache, nausea, vomiting, back pain, and fatigue. She also reported low blood sugar due to poo r appetite, though she has history of uncontrolled diabetes with severe hyperglycemia. The patient w as seen in the emergency room 3 days prior to this admission and was diagnosed with congestive heart failure and was advised to increase Lasix dose. Chest x-ray demonstrated congestive heart failure pa ttern. Patient was consulted with Cardiology for further recommendation. Past Medical History: Seizures; atrial fibrillation, on chronic anticoagulation; diabetes mellitus t ype 2, insulin dependent; hypertension; hyperlipidemia; chronic systolic congestive heart failure; co ronary artery disease; chronic kidney disease stage 4, neuropathy, ejection fraction 20% to 25%, defi brillator; pneumonia; exploratory laparotomy; appendectomy. Family History: Father with lung disease. Mother with heart disease, hypertension, diabetes. Siste r diabetes. Brother with diabetes and kidney disease. Social History: Denies tobacco, alcohol, or illicit drugs. Review of Systems: As stated above. General: Fatigue. Denies fever. Respiratory: Cough, shortness of breath, dyspnea on exertion. Denies PND, orthopnea. Gastrointesti nal: Nausea, vomiting. Denies melena, hematemesis. : Denies dysuria or hematuria. Musculoskeletal: Has edema in the lower extremities. All other systems reviewed and all are negative. Physical Examination: Vital Signs: Blood pressure 120/93, heart rate 90, respiratory rate 23, pulse oximeter 100%. General: Patient is alert, not in acute distress. Oriented x2. Eyes: Anicteric sclerae. EOMI. Ears, Nose, Mouth and Throat: Oral mucosa moist. No pallor. Neck: Supple. No bruits. Lungs: Crackles at bases and few rhonchi. Heart: S1, S2. Abdomen: Obese, soft, nontender. No rebound. No guarding. Extremities: Edema present in both ankles. Neurologic: Moving extremities. Cranial nerves intact. Psychiatric: Alert and oriented x3. Normal affect. Investigations: Sodium 137, potassium 4.0, BUN 61, creatinine 1.98, glucose 296, total bilirubin 0.2 . Hemoglobin 10.7, hematocrit 32, platelet count 190, WBC 6.10. Blood work today showed sodium 147, potassium 3.6, chloride 105, CO2 of 26, BUN 61, creatinine 2.13, glucose 241, calcium 8.7. Troponin 20.4. Urinalysis showed specific gravity 1.013, pH 6, glucose negative, ketones negative, blood neg ative, nitrites negative. RBC less than 5, WBC less than 5. Urine protein 1+. Chest x-ray showed m oderate bilateral pulmonary opacities compatible with pulmonary edema. Heart is mildly enlarged, mod erate congestive heart failure. Impression And Plan: 1.Acute kidney injury with severe cardiorenal syndrome. There is no evidence of nephritis. Patient has underlying diabetic kidney disease with proteinuria. Patient will continue diuretic, Lasix, dos e is increased to 40 mg twice a day. 2.Patient has history of severe congestive heart failure with systolic dysfunction. She is on metop rolol. Continue current treatment. 3.Proteinuria. Angiotensin receptor cindy is on hold due to severe prerenal azotemia and acute ki dney injury. Patient although may benefit from angiotensin receptor cindy when renal function is a t baseline. 4.Acute kidney injury. Plan is to check renal ultrasound and bladder scan to rule out urinary reten tion and hydronephrosis. 5.Diabetes mellitus. 6.History of uncontrolled diabetes. Patient recently had hypoglycemic episodes and further recommen dation from primary team. 7.Hypertension. Continue beta cindy and calcium channel cindy for blood pressure control as nee ded. 8.Atrial fibrillation. The patient is on digoxin. Monitor digoxin level. EB/MODL Voice ID: [id number] Report ID: [id number]
[2022-05-07] MEDS: ALBUTEROL 2.5 MG/3 ML NEB SOL NEB SCH ×4 (02:00→20:00)
[2022-05-07] MEDS: ALPRAZOLAM 0.25 MG TABLET PO PRN (03:51)
[2022-05-07] MEDS: METOPROLOL XL 50 MG TAB PO SCH ×2 (05:47→18:49)
--- NOTE | 2022-05-07 07:12 | P.PN ---
Date of Service: 05/07/22 Subjective: Feeling slightly better ambulating w/o assistance reports chest pain, lightheaded, dizzy overnight/this morning ROS: 10 point ROS as noted above, otherwise negative Physical Exam: GEN: Alert, oriented, NAD HEENT: Normal conjunctiva, sclera anicteric CV: regular rhythm, trace b/l pedal edema Pulm: Nonlabored respirations on room air ABD: Soft, nontender, nondistended Neuro: Normal speech, normal affect Problem List: Acute on chronic CHF exacerbation, systolic CKD 4 Diabetes type 2, insulin-dependent Hypertension History of [place] Anxiety Atrial fib, chronic; on anticoagulation Hyperlipidemia CHF chest pain Cardiology consulted Troponin negative initially, repeat 05/07, pt reported chest pain monitor telemetry - v-paced Echo pending, last EF 30-35 % in 2019 edematous on admission; CXR: moderate CHF - improving weaned to room air held lasix 05/07 secondary to low BP /dizziness check orthostatics Continue aspirin and Lipitor Continue home medications, avoid NSAIDs, IV contrast Nephrology consulted U/S, 24hr collections ordered rectal bleeding - pt states almost everyday since colonoscopy ~year ago; varies in amount not more than usual has GI appointment Sunday to schedule procedure Renal ultrasound - Bilateral renal cortical thinning and increased echogenicity, suggesting medical renal disease. Incidentally noted small bilateral anechoic renal cysts, largest measuring 2.8 centimeter at the right upper to mid pole. 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
[2022-05-07 07:19] LABS: Absolute Lymphocytes (CBC) 1.9 K/uL (0.7-4.9); Lymphocytes % 30.3 % (15.3-44.8); MCV 92.8 fL (80-100); MPV 9.9 fL (7.6-11.3); RBC Red Blood Cell Count 3.44 M/uL (3.86-4.86)
[2022-05-07 07:42] LABS: Digoxin Level 0.3 ng/mL (0.80-2.00); Magnesium 2.3 mg/dL (1.6-2.4); Phenytoin (Dilantin) Level 6.7 mcg/mL (10.0-20.0); Phosphorus 4.9 mg/dL (2.5-4.9); Potassium 3.7 mEq/L (3.5-5.1); Thyroid Stimulating Hormone 0.904 uIU/mL (0.358-3.740); Uric Acid 7.2 mg/dL (2.6-6.0)
--- NOTE | 2022-05-07 08:37 | RAD REPORT ---
EXAM DESCRIPTION: US - Renal Ultrasound-Complete - 05/07/2022 6:51 am CLINICAL HISTORY: claus COMPARISON: Small Bowel Series dated 08/10/2021; Abdomen Pelvis Wo Contrast dated 08/07/2021 TECHNIQUE: Sonographic grayscale and color flow images of the kidneys and bladder were obtained. FINDINGS: Bilateral cortical thinning and increased echogenicity. Small bilateral anechoic cysts, th e largest at the upper to mid right renal pole measuring 2.8 centimeter. The right kidney measures 8.9 centimeter in length. No hydronephrosis, focal mass or echogenic calcul i . The left kidney measures 7.5 centimeter in length. No hydronephrosis, focal mass or echogenic calculi . The urinary bladder is incompletely distended without gross abnormality seen. IMPRESSION: Bilateral renal cortical thinning and increased echogenicity, suggesting medical renal d isease. No hydronephrosis or echogenic calculi. Incidentally noted small bilateral anechoic renal cysts, largest measuring 2.8 centimeter at the righ t upper to mid pole.
[2022-05-07] MEDS: INSULIN -REGULAR HUMAN 50 UNIT/0.5 ML ML SQ SCH ×4 (08:57→21:10)
[2022-05-07] MEDS: INSULIN GLARGINE 100 UNIT/ML SQ SCH (08:58)
[2022-05-07] MEDS: DIGOXIN 0.125 MG TABLET PO SCH (08:59)
[2022-05-07] MEDS: APIXABAN 5 MG TABLET PO SCH ×2 (08:59→21:09)
[2022-05-07] MEDS: FUROSEMIDE 40 MG/4 ML VIAL IV SCH ×2 (09:00→17:34)
[2022-05-07] MEDS: PHENYTOIN ER 100 MG CAP PO SCH ×2 (09:48→21:09)
[2022-05-07] MEDS ORDERED: POLYETHYL GLY 3350 17 GM/DOSE PO PRN (12:21)
[2022-05-07 12:56] VITALS: O2SAT 96
[2022-05-07] MEDS: DOCUSATE NA 100 MG CAP PO SCH ×2 (12:58→21:09)
[2022-05-07] MEDS ORDERED: POLYETHYL GLY 3350 17 GM/DOSE PO ONE (13:00)
[2022-05-07] MEDS: ATORVASTATIN 40 MG TAB PO SCH (21:09)
--- NOTE | 2022-05-07 22:39 | PN ---
Date of Progress Note: 05/07/2022 Subjective: Kvkzq-sp-ofazgmv kidney injury, cardiorenal syndrome, congestive heart failure exacerbat ion. Patient is on Lasix IV 40 mg twice a day. Patient again is complaining of some dyspnea, leg ed rd has improved, and gradually resolving. The patient is admitted for hbbui-ap-jkgbqxy kidney injur y with severe prerenal azotemia and cardiorenal syndrome. Patient was complaining of PND and orthopn ea, dyspnea on exertion. The patient has history of uncontrolled diabetes with severe hyperglycemia. Review of Systems: Denies fever or chills. Physical Examination: Lungs: Clear to auscultation bilaterally. Heart: S1, S2. Abdomen: Soft, benign. Extremities: Slight pretibial edema. Impression And Plan: 1.Eumcg-if-iclahmf kidney injury with severe cardiorenal syndrome. Patient was symptomatic with dys pnea. Continue Lasix 40 mg twice a day. 2.The patient has proteinuria. Angiotensin receptor cindy is on hold due to severe prerenal azote miya and acute kidney injury. 3.Acute kidney injury. Plan is to follow up on 24 hours urine collection to rule out monoclonal audra mopathy of unknown significance to screen urinalysis and rule out active sediment. 4.Uncontrolled diabetes. Patient recently had hypoglycemic episodes and further recommendation from primary team appreciated. EB/MODL Voice ID: [id number] Report ID: [id number]
[2022-05-08] MEDS: ALBUTEROL 2.5 MG/3 ML NEB SOL NEB SCH ×4 (02:20→20:10)
[2022-05-08 03:37] LABS: Absolute Lymphocytes (CBC) 1.8 K/uL (0.7-4.9); Hematocrit 31.9 % (36.0-45.0); Lymphocytes % 26.1 % (15.3-44.8); MCV 92.9 fL (80-100); MPV 10.7 fL (7.6-11.3); RBC Red Blood Cell Count 3.43 M/uL (3.86-4.86)
[2022-05-08 03:53] LABS: Potassium 4.1 mEq/L (3.5-5.1)
[2022-05-08 04:20] LABS: Hepatitis B Core IgM Nonreactive (Nonreactive); Hepatitis B surface AG Interp. Nonreactive (Nonreactive); Hepatitis C Virus Ab Nonreactive (Nonreactive)
[2022-05-08 04:59] LABS: Magnesium 2.5 mg/dL (1.6-2.4); Phosphorus 4.2 mg/dL (2.5-4.9)
[2022-05-08] MEDS: METOPROLOL XL 50 MG TAB PO SCH ×2 (05:59→17:23)
--- NOTE | 2022-05-08 07:02 | P.PN ---
Date of Service: 05/08/22 Subjective: Feeling better this morning; breathing feels easier ambulating w/o assistance no chest pain reported since last night continues with chronic rectal bleed ROS: 10 point ROS as noted above, otherwise negative Physical Exam: GEN: Alert, oriented, NAD HEENT: Normal conjunctiva, sclera anicteric CV: regular rhythm, trace b/l pedal edema Pulm: Nonlabored respirations on room air ABD: Soft, nontender, nondistended Neuro: Normal speech, normal affect Problem List: Acute on chronic CHF exacerbation, systolic CKD 4 Diabetes type 2, insulin-dependent Hypertension History of [place] Anxiety Atrial fib, chronic; on anticoagulation Hyperlipidemia CHF chest pain Cardiology consulted Troponin negative initially, repeat 05/07, pt reported chest pain monitor telemetry - v-paced Echo: EF: 24% today , last EF 30-35 % in 2019 edematous on admission; CXR: moderate CHF -now improving weaned to room air held lasix 05/07 secondary to low BP /dizziness Nephrology consulted BUN increasing, lasix vs bleed recommends 1-2 more days inpatient Renal ultrasound - Bilateral renal cortical thinning and increased echogenicity, suggesting medical renal disease. Incidentally noted small bilateral anechoic renal cysts, largest measuring 2.8 centimeter at the right upper to mid pole. Continue aspirin and Lipitor Continue home medications, avoid NSAIDs, IV contrast rectal bleeding - pt states almost everyday since colonoscopy ~year ago; varies in amount not more than usual has GI appointment Sunday to schedule procedure with Dr. Montoya Spoke to Dr. Werner, patient can be seen by Dr. Montoya ; Hospitalist to let Dr. Werner know when patient gets discharged so can ensure patient gets seen / has appt prior to discharge. 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
[2022-05-08] MEDS: INSULIN -REGULAR HUMAN 50 UNIT/0.5 ML ML SQ SCH ×4 (08:40→21:57)
[2022-05-08] MEDS: INSULIN GLARGINE 100 UNIT/ML SQ SCH (08:40)
[2022-05-08] MEDS: DOCUSATE NA 100 MG CAP PO SCH ×2 (08:41→21:26)
[2022-05-08] MEDS: DIGOXIN 0.125 MG TABLET PO SCH (08:41)
[2022-05-08] MEDS: FUROSEMIDE 40 MG/4 ML VIAL IV SCH ×2 (08:42→17:23)
[2022-05-08] MEDS: PHENYTOIN ER 100 MG CAP PO SCH ×2 (08:42→21:26)
[2022-05-08] MEDS: APIXABAN 5 MG TABLET PO SCH ×2 (08:49→21:26)
--- NOTE | 2022-05-08 08:52 | RAD REPORT ---
EXAM DESCRIPTION: RAD - Chest Single View - 05/08/2022 6:51 am CLINICAL HISTORY: dyspnea, f/u pulm edema Chest pain. COMPARISON: Chest Single View dated 05/05/2022; Chest Single View dated 05/02/2022; Chest Single View dated 11/04/2021; Chest Pa And Lat (2 Views) dated 09/29/2021 FINDINGS: Portable technique limits examination quality. Mild pulmonary edema. The heart is moderately enlarged. Multi lead pacer/ defibrillator device is pre sent. IMPRESSION: Mild CHF versus volume overload pattern.
--- NOTE | 2022-05-08 13:54 | ECHO ---
HEIGHT: 5 ft 0 in WEIGHT: 175 lb 0 oz DATE OF STUDY: 05/08/[address]: Bala Baugh NP 2-DIMENSIONAL: YES M.MODE: YES DOPPLER: YES COLOR FLOW: YES TDS: NO PORTABLE: YES DEFINITY: NO BUBBLE STUDY: NO DIAGNOSIS: CHF EXACERBATION CARDIAC HISTORY: CATHERIZATION: NO SURGERY: NO PROSTHETIC VALVE: NO PACEMAKER: YES MEASUREMENTS (cm) DIASTOLIC (NORMALS) SYSTOLIC (NORMALS) IVSd 0.9 (0.6-1.2) LA Diam 3.2 (1.9-4.0) LVEF 24% LVIDd 6.3 (3.5-5.7) LVIDs 5.6 (2.0-3.5) %FS 11% LVPWd 1.0 (0.6-1.2) Ao Diam 2.7 (2.0-3.7) 2 DIMENSIONAL ASSESSMENT: RIGHT ATRIUM: NORMAL LEFT ATRIUM: NORMAL RIGHT VENTRICLE: PACEMAKER WIRE LEFT VENTRICLE: DILATED TRICUSPID VALVE: MILD TR MITRAL VALVE: MILD MR PULMONIC VALVE: NORMAL AORTIC VALVE: NORMAL PERICARDIAL EFFUSION: NONE AORTIC ROOT: NORMAL LEFT VENTRICULAR WALL MOTION: SEVERE GLOBAL HYPOKINESIS. DOPPLER/COLOR FLOW: SEE BELOW. COMMENTS: 1. SEVERELY DEPRESSED LEFT VENTRICULAR EJECTION FRACTION 25-30%. 2. SEVERE GLOBAL HYPOKINESIS. 3. MILD MITRAL AND TRICUSPID REGURGITATION. 4. RIGHT VENTRICLE PACEMAKER WIRE IS SEEN. TECHNOLOGIST: Angely GOMEZ
--- NOTE | 2022-05-08 17:42 | EKG ---
Test Date: 2022-05-05 Test Time: 13:21:10 [employer] Librarian: NITHYA MEASUREMENT RESULTS: Intervals: Rate: 89 WA: 98 QRSD: 170 QT: 464 QTc: 564 [place]: P: 70 WA: 98 QRS: -77 T: 103 INTERPRETIVE STATEMENTS: AV sequential or dual chamber electronic pacemaker Compared to ECG 05/02/2022 17:18:58 No significant changes Electronically Signed On 05-08-22 17:37:08 CDT by Armond Moore
--- NOTE | 2022-05-08 18:20 | CON ---
Date of Consultation: 05/08/2022 Reason For Consultation: CHF. History Of Present Illness: 77-year-old female with past medical history significant for congestive heart failure, low ejection fraction in the low 30s, hypertension, diabetes, chronic kidney disease a nd she has a pacemaker and defibrillator, dyslipidemia, seizure disorder, presented with shortness of breath and lower extremity edema. Denies having any chest pain. No nausea, vomiting, diarrhea, and no other complaints. Past Medical History: As outlined above in the HPI. Medications: Refer reconciliation sheet for detailed list. Allergies: AMOXICILLIN, CIPROFLOXACIN, AND CLAVULANIC ACID. Family History: No premature coronary artery disease or cancer. Social History: She does not smoke or drink. Does not use any drugs. Review of Systems: All systems were reviewed, they were negative except as mentioned in HPI. Physical Examination: Vital Signs: Reviewed. Head and Neck: Pupils are equal, reactive to light. Intact eye movements. No JVD. No cervical lym phadenopathy. Neck is supple. Thyroid is not enlarged. Lungs: Clear to auscultation bilaterally. No rhonchi, rales, or crackles. No accessory muscle use. Heart: Regular rate and rhythm. No extra sounds. Abdomen: Soft, nontender. Bowel sounds positive. No organomegaly. No masses or hernia. No rigidi ty or rebound. Extremities: No edema, clubbing, or cyanosis. Intact pulses. Skin: No rash. Neurologic: Alert, awake, oriented x3. No acute focal deficits appreciated. Lymph Nodes: No cervical or axillary lymphadenopathy. Investigations: BUN is 80, creatinine is 2.2, and hemoglobin is 10.6, and the chest x-ray showed mil d CHF. Assessment And Recommendation: 1.Acute on chronic systolic heart failure exacerbation. Agree with diuretics with Lasix. She appea rs to be doing clinically well on that. Continue current management. Monitor carefully BUN, creatin ine, and electrolytes. 2.History of atrial fibrillation. She is in sinus now. However, I recommend to increase the metopr olol to get a heart rate close to 100, and I recommend to discontinue digoxin as well. SR/MODL Voice ID: [id number] Report ID: [id number]
[2022-05-08] MEDS: ATORVASTATIN 40 MG TAB PO SCH (21:26)
[2022-05-08] MEDS: ACETAMINOPHEN 500 MG TAB PO PRN (21:56)
--- NOTE | 2022-05-08 23:32 | PN ---
Date of Progress Note: 05/08/2022 Chief Complaint: Acute on chronic kidney injury, cardiorenal syndrome. Subjective: Patient presented to the hospital with dyspnea, generalized weakness. She was found to have CHF exacerbation and she is on Lasix for cardiorenal syndrome and congestive heart failure. Pooja galloway has congestive heart failure with systolic dysfunction. She is on Lasix 40 mg twice a day. She complains of shortness of breath with ambulation. She denies PND, orthopnea. Physical Examination: Lungs: Coarse breath sounds at bases. Few crackles. Heart: S1, S2. Abdomen: Soft, benign. Extremities: Slight edema. Impression And Plan: 1.Acute on chronic kidney injury secondary to cardiorenal syndrome. Continue Lasix. Workup with Ca rdiology is pending. 2.History of atrial fibrillation. Currently, patient is on metoprolol. 3.Hypertension. Blood pressure is controlled. 4.Diabetes mellitus with renal manifestation. Continue insulin. EB/MODL Voice ID: [id number] Report ID: [id number]
[2022-05-09] MEDS: ALBUTEROL 2.5 MG/3 ML NEB SOL NEB SCH ×2 (01:30→09:15)
[2022-05-09 03:59] LABS: Potassium 3.5 mEq/L (3.5-5.1); Uric Acid 7.8 mg/dL (2.6-6.0)
[2022-05-09 05:29] LABS: Magnesium 2.5 mg/dL (1.6-2.4); Phosphorus 4.8 mg/dL (2.5-4.9)
[2022-05-09] MEDS: METOPROLOL XL 50 MG TAB PO SCH ×2 (05:57→17:10)
--- NOTE | 2022-05-09 08:08 | RAD REPORT ---
EX[facility] DESCRIPTION[facility] 5:50 am CLINICAL HISTORY: chf COMPARISON: Chest Single View dated 05/08/2022; Chest Single View dated 05/05/2022; Chest Single View dated 05/02/2022; Chest Single View dated 11/04/2021 TECHNIQUE: Portable AP view of the chest. FINDINGS: The lungs are clear.Stable central interstitial prominence and prominence of the central v ascular markings, suggesting mild central venous congestion. Atelectatic changes versus pleural plaqu e along the left costophrenic angle. No pneumothorax or effusion. The mediastinal contours are unchan ged. Stable moderate cardiomegaly. Left chest wall pacer/ICD in place. IMPRESSION: No acute pulmonary process. Mild congestive changes and cardiomegaly, stable.
[2022-05-09] MEDS: INSULIN -REGULAR HUMAN 50 UNIT/0.5 ML ML SQ SCH ×3 (08:23→16:41)
[2022-05-09] MEDS: APIXABAN 5 MG TABLET PO SCH (08:25)
[2022-05-09] MEDS: DOCUSATE NA 100 MG CAP PO SCH (08:25)
[2022-05-09] MEDS: PHENYTOIN ER 100 MG CAP PO SCH (08:25)
[2022-05-09] MEDS: FUROSEMIDE 40 MG/4 ML VIAL IV SCH ×2 (08:26→16:41)
[2022-05-09] MEDS: INSULIN GLARGINE 100 UNIT/ML SQ SCH (08:27)
[2022-05-09] MEDS ORDERED: ALBUTEROL 2.5 MG/3 ML NEB SOL NEB PRN ×2 (08:49→11:00)
[2022-05-09] MEDS ORDERED: SPIRONOLACTONE 25 MG TABLET PO SCH (09:00)
[2022-05-09] MEDS ORDERED: METOLAZONE 2.5 MG TABLET PO SCH (09:00)
[2022-05-09] MEDS ORDERED: POTASSIUM CL SA 10 MEQ TAB PO ONE (09:00)
[2022-05-09 16:57] VITALS: BP 132/75; TEMP 97
--- NOTE | 2022-05-09 18:00 | PN ---
Date of Progress Note: 05/09/2022 Subjective: Seen by bedside. Doing well. No shortness of breath. Review of Systems: No chest pain, shortness of breath, orthopnea, cough. No nausea, vomiting, diarrhea. All other syst ems reviewed and they were negative. Physical Examination: Vital Signs: Reviewed. Head and Neck: Pupils are equal, reactive to light. Intact eye movements. No JVD. No cervical lym phadenopathy. Neck is supple. Thyroid is not enlarged. Lungs: Clear to auscultation bilaterally. No rhonchi, wheezing, or crackles. No accessory muscle u se. Heart: Irregularly irregular. No extra sounds. Abdomen: Soft, nontender. Bowel sounds positive. No organomegaly. No masses or hernia. No rigidi ty or rebound. Extremities: No clubbing or cyanosis. Intact pulses. Skin: No rash. Neurologic: Alert, awake, oriented x3. No acute focal deficits appreciated. Investigations: Labs reviewed. Assessment And Recommendations: 1.Acute on chronic congestive heart failure exacerbation, systolic dysfunction, appears to be euvole ezra. Switch Lasix to oral and the patient has a Cardiology followup on an outpatient basis. 2.Atrial fibrillation. Rate is still high. I will recommend to increase the metoprolol further to 100 mg twice a day and continue Eliquis. 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 /CAMERON Voice ID: [id number] Report ID: [id number]
--- NOTE | 2022-05-09 18:13 | P.DS ---
Admission Date: 05/07/22 Discharge Date: 05/09/22 Primary Care Provider: Adonis Disposition: ROUTINE DISCHARGE Discharge Condition: FAIR Reason for Admission: CHF exacerbation Brief History of Present Illness: This is a 77-year-old female with past medical history significant for anxiety, myocardial infarction, kidney failure stage IV, hypertension, diabetes type 2 insulin-dependent, systolic CHF with EF 30-35%, atrial fib with pacemaker and defibrillator, hyperlipidemia, neuropathy, and seizures. Patient presented to the emergency with complaints of shortness of breath. She reported associated symptoms of cough, headache, nausea and vomiting, back pain, and fatigue. She also reported low blood sugars due to poor appetite and recent weight loss of 40 pounds due to poor appetite. Patient was seen in the ED 3 days prior and was diagnosed with CHF and was told to double her Lasix dose. Her chest x-ray in the ED demonstrated CHF. She was admitted for further management. Hospital Course: Diagnosis Acute on chronic CHF exacerbation, systolic CKD 4 Diabetes type 2, insulin-dependent Hypertension History of [place] Anxiety Atrial fib, chronic; on anticoagulation Hyperlipidemia Patient admitted to the medical floor and the following medical problems addressed CHF chest pain Acute respiratory failure with hypoxia Cardiology consulted Troponin trended negative, monitor telemetry - v-paced Echo: EF: 24% today , last EF 30-35 % in 2019 Patient treated with IV Lasix and metolazone. edematous on admission; CXR: moderate CHF which improved on repeat x-ray She was requiring oxygen but was later weaned to room air Her blood pressure was borderline low. Her other antihypertensives were held. She appears compensated for CHF. She is discharged with Lasix 40 mg twice daily and follow-up with nephrology as outpatient for repeat renal panel and diuretics adjustment. Acute on chronic kidney disease stage IV Nephrology consulted BUN increased but stabilized. Renal ultrasound - Bilateral renal cortical thinning and increased echogenicity, suggesting medical renal disease. Incidentally noted small bilateral anechoic renal cysts, largest measuring 2.8 centimeter at the right upper to mid pole. Chronic atrial fibrillation Patient states she is being evaluated for Watchman procedure outpatient. Heart rate is controlled on Toprol-XL 50 mg twice daily. Cardiology recommended to discontinue digoxin. Blood pressure was borderline low. Continue with Eliquis. Rectal bleeding pt reports rectal bleed almost everyday since colonoscopy ~year ago. Bleeding at the end of BM suggesting hemorrhoid Patient was scheduled to follow-up with Dr. Montoya. She is informed to follow-up with Dr. Montoya in the office on morning Vital Signs/Physical Exam: Temp Pulse Resp BP Pulse Ox 97.0 F 104 H 16 132/75 99 05/09/22 16:00 05/09/22 16:00 05/09/22 16:00 05/09/22 16:00 05/09/22 16:00 General: Alert, In no apparent distress, Oriented x3 HEENT: Mucous membr. moist/pink Neck: JVD not distended Respiratory: Clear to auscultation bilaterally, Normal air movement Cardiovascular: No edema, Regular rate/rhythm, Normal S1 S2 Gastrointestinal: Normal bowel sounds, Soft and benign, Non-distended, No tenderness Musculoskeletal: No swelling, No tenderness Integumentary: No cyanosis Neurological: Normal strength at 5/5 x4 extr Laboratory Data at Discharge: WBC 6.70 thou/uL (4.3-10.9) 05/08/22 02:31 Hgb 10.6 g/dL (12.0-15.0) L 05/08/22 02:31 Hct 31.9 % (36.0-45.0) L 05/08/22 02:31 Plt Count 195 thou/uL (152-406) 05/08/22 02:31 Sodium 139 mEq/L (136-145) 05/09/22 02:25 Potassium 3.5 mEq/L (3.5-5.1) D 05/09/22 02:25 BUN 85 mg/dL (7-18) H 05/09/22 02:25 Creatinine 2.20 mg/dL (0.55-1.02) H 05/09/22 02:25 Glucose 172 mg/dL (74-106) H 05/09/22 02:25 Uric Acid 7.8 mg/dL (2.6-6.0) H 05/09/22 02:25 Phosphorus 4.8 mg/dL (2.5-4.9) 05/09/22 02:25 Magnesium 2.5 mg/dL (1.6-2.4) H 05/09/22 02:25 Total Bilirubin 0.2 mg/dL (0.2-1.0) 05/05/22 14:19 AST 21 U/L (15-37) 05/05/22 14:19 ALT 40 U/L (13-56) 05/05/22 14:19 Alkaline Phosphatase 118 U/L (45-117) H 05/05/22 14:19 Home Medications: Apixaban [Eliquis] 5 mg PO BID 08/07/21 Atorvastatin Calcium [Lipitor] 40 mg PO BEDTIME 08/07/21 Insulin NPH Human Isophane [Novolin N] 30 unit SQ 0800,199908/07/21 PHENYTOIN ER Cap [Dilantin ER Cap*] 100 mg PO BID 08/07/21 Sennosides/Docusate Sodium [Senna-Docusate Sodium Tablet] 1 each PO DAILY #30 tablet 08/10/21 Insulin Lispro [Humalog*] 25 unit SQ BID 11/04/21 Ondansetron [Zofran (Odt)*] 4 mg PO Q8H PRN #20 tab 11/05/21 Furosemide [Lasix] 40 mg PO BIDL #60 tab 05/09/22 Metoprolol Succinate [Toprol Xl*] 50 mg PO BID 6AM 6PM #60 tab 05/09/22 Spironolactone [Aldactone*] 12.5 mg PO DAILY #30 tab 05/09/22 metOLazone [Zaroxolyn*] 2.5 mg PO DAILY #30 tab 05/09/22 New Medications: Spironolactone [Aldactone*] 12.5 mg PO DAILY #30 tab Furosemide [Lasix] 40 mg PO BIDL #60 tab Metoprolol Succinate [Toprol Xl*] 50 mg PO BID 6AM 6PM #60 tab metOLazone [Zaroxolyn*] 2.5 mg PO DAILY #30 tab Physician Discharge Instructions: Please take lasix(Furosemide) 40 mg twice a day. Follow up with Dr. Mayers within a week for repeat blood work to adjust your lasix dose. Some of your blood pressure medications were stopped because your blood pressure was low during this hospital stay. Please check your blood pressure every morning before you take your medications. You can resume your other blood pressure medications if your blood pressure readings become high again. Diet: ADA Activity: Ad royal Followup: Riana Richards MD [ACTIVE - CAN ADMIT] - 1 Week NONE,NONE [Primary Care Provider] - Time spent managing pt's care (in minutes): 37
[2022-05-10 17:01] LABS: Albumin, (SPE) 3.5 g/dL (3.8-4.8); Alpha-1-Globulins 0.4 g/dL (0.2-0.3); Gamma Globulins 1.2 g/dL (0.8-1.7); INTERPRETATION REPORT
[2022-05-11 15:12] LABS: Beta Globulin 24 HR Urine 14 %; Gamma Globulin, 24hr Urine 13 %; Interpretation: REPORT; Protein/Crea Ratio in g 660 mg/g creat (<150); Urine Alpha-2-Globulins, 24 Hr 8 %; Urine PEP Abn Protein Band1 REPORT; Urine Total Volume 24 Hours 1100 mL
== END 2022-05-09 18:56 | disposition home or self-care (01) | DRG 291 ==
LOC: ER 11:44 → ERHOLD 16:27 → 2ND 19:54 → OBSVTOIN 05-07 19:18
PROVIDERS: ADMIT Hospitalist; ATTEND Internal Medicine
DX: I13.0 Hypertensive heart and chronic kidney disease with heart failure and stage 1 through stage 4 chronic kidney disease, or unspecified chronic kidney disease (principal); I50.23 Acute on chronic systolic (congestive) heart failure; J96.01 Acute respiratory failure with hypoxia; N17.9 Acute kidney failure, unspecified; N18.4 Chronic kidney disease, stage 4 (severe); I48.20 Chronic atrial fibrillation, unspecified; K62.5 Hemorrhage of anus and rectum; E11.22 Type 2 diabetes mellitus with diabetic chronic kidney disease; E11.40 Type 2 diabetes mellitus with diabetic neuropathy, unspecified; E78.5 Hyperlipidemia, unspecified; N28.1 Cyst of kidney, acquired; F41.9 Anxiety disorder, unspecified; I25.2 Old myocardial infarction; R80.9 Proteinuria, unspecified; Z88.1 Allergy status to other antibiotic agents; Z79.4 Long term (current) use of insulin; Z79.01 Long term (current) use of anticoagulants; Z90.49 Acquired absence of other specified parts of digestive tract; Z95.810 Presence of automatic (implantable) cardiac defibrillator; Z79.899 Other long term (current) drug therapy; Z20.822 Contact with and (suspected) exposure to COVID-19
CPT/HCPCS: 36415; 71045; 76770; 80048; 80053; 80074; 80162; 80185; 81001; 82550; 82565; 82947; 83036; 83735; 83880; 84100; 84165; 84166; 84443; 84484; 84550; 85025; 86021; 86038; 86334; 87811; 93005; 93306; 96374; 99285; G0378; J1815; J1940; J7613

== ENCOUNTER 2022-06-16 11:10 | Emergency (ER) | payer OTHER ==
--- OUTSIDE RECORDS SUMMARY | 2022-06-16 11:22 | XMS REPORT | Continuity of Care Document ---
:1945 Author Organization [facility] t Address [address] [place] [address] [address] [place] [address] Care Team Providers Name Role Phone Sam Luque Primary Care Physician Elaine Lamb Attending Clinician Unavailable FAM CRAIG Attending Clinician Unavailable SILVERIO ADAM Attending Clinician Unavailable SRIRAM HEATH Attending Clinician Unavailable Sriram Heath MD Attending Clinician Doctor Unassigned, [place] Attending Clinician Unavailable 2, [facility] Attending Clinician Unavailable Silverio Adam MD Attending Clinician Nara Galvan RN Attending Clinician Unavailable BRII SAMSON Attending Clinician Unavailable Marina Pang DO Attending Clinician Brii Samson MD Attending Clinician Fang Perez MD Attending Clinician Unknown, Attending Attending Clinician Unavailable FANG PEREZ Attending Clinician Unavailable AMITA GOMEZ Attending Clinician Unavailable AMITA GOMEZ Attending Clinician Unavailable Tin SQUIRES, Alexey Attending Clinician ALEXEY CASTLE Attending Clinician Unavailable DIANN GUY Attending Clinician Unavailable Diann Guy MD Attending Clinician MITCHELL GARCIA Attending Clinician Unavailable MITCHELL GARCIA Attending Clinician Unavailable IBIKUNLELIZZIEO F Attending Clinician Unavailable Ibikunle MENTAL HEALTH AIDES TEACHER, Folusho F Attending Clinician Major SQUIRES, Clare Combs Attending Clinician CLARE GONSALVES Attending Clinician Unavailable Tommy BURK, Luis Alberto Attending Clinician Unavailable Mitchell Garcia MD Attending Clinician Pob, [facility] Main Attending Clinician Unavailable Ortega Dorsey MD Attending Clinician [phone] ORTEGA DORSEY Attending Clinician Unavailable Cielo Bautista RN Attending Clinician Unavailable Ananya Gomez DO Attending Clinician ANANYA GOMEZ Attending Clinician Unavailable JENNIE BACA Attending Clinician Unavailable Jennie Lowery Attending Clinician ARGENIS BARNETT Attending Clinician Unavailable Damien Hugo MD Attending Clinician Soni Hunter MD Attending Clinician Argenis Barnett MD Attending Clinician Esperanza Cronin RN Attending Clinician Unavailable ANUJ GONZALES Attending Clinician Unavailable Hudson Wolfe MD Attending Clinician Anuj Gonzales MD Attending Clinician Misael Castro MD Attending Clinician GRAMM, SHANTEL A Attending Clinician Unavailable Gramm MENTAL HEALTH AIDES TEACHER, Shantel A Attending Clinician Sabina Barba MD Attending Clinician SABINA BARBA Attending Clinician Unavailable Meka SCOTT, Ericka Attending Clinician ERICKA ACKERMAN Attending Clinician Unavailable Lab, Ang - Db Attending Clinician Unavailable VIRI PRICE Attending Clinician Unavailable Lab, [facility] Fam Pob I Attending Clinician Unavailable Jose MENTAL HEALTH AIDES TEACHER, Karla Attending Clinician Dee MENTAL HEALTH AIDES TEACHER, Viri Martinez Attending Clinician Teri Samano RN Attending Clinician Unavailable ERICH PANTOJA Attending Clinician Unavailable Pacemaker/Icd, [facility] Attending Clinician Unavailable Omole MENTAL HEALTH AIDES TEACHER, Min Godinez Attending Clinician [phone] OMOLE, MIN TEEDANIELE Attending Clinician Unavailable Nita Degroot DO Attending Clinician NITA DEGROOT Attending Clinician Unavailable NITA DEGROOT Attending Clinician Unavailable Provider, [facility] Attending Clinician Unavailable Anny MENTAL HEALTH AIDES TEACHER, Monica Attending Clinician MONICA BUTLER Attending Clinician Unavailable Calli BURK, Jo More Attending Clinician Unavailable Kirt Thomason DO Attending Clinician Gab Servin MD Attending Clinician GAB SERVIN Attending Clinician Unavailable Cielo Henry RN Attending Clinician Fam Craig MD Attending Clinician [phone] Edgar Cortés MD Attending Clinician [phone] EDGAR CORTÉS Attending Clinician Unavailable Lubna Lal MD Attending Clinician LUBNA LAL Attending Clinician Unavailable , [facility] Echo Room 1 - Attending Clinician Unavailable Visit, [facility] Nurse Attending Clinician Unavailable Dago Gross MD K.HKaren Attending Clinician , [facility] Vascular Room 1 - Attending Clinician Unavailable ALEXUS RAMOS Attending Clinician Unavailable ALEXUS RAMOS Attending Clinician Unavailable DAGO GROSS.H. Attending Clinician Unavailable EVAN MARTIN Attending Clinician Unavailable EKATERINA BOUDREAUX Attending Clinician Unavailable Nate GALAVIZPMadeleine Attending Clinician Emily Lezama Attending Clinician [facility], [facility] Heart Failure Cardio Attending Clinician Unavailjeremy rock 1, [facility] Lab Attending Clinician Unavailable FAM CRAIG Admitting [...] Policy Number Effective Date Expiration Date S willkarthik BLAKE/SANDRA [id number] 2019 MEDICARE ADVANTAGE 00:00:00 HUMANA CHOICE [id number] 2022 00:00:00 Problems Condition Condition Condition Status Onset Resolution Last Treating Co mments Source Name Details Category Date Date Treatment Clinician Date Pulmonary Pulmonary Disease Active 2021-02 Uni vers hypertensi hypertensi 2-31 it y of on on 00:00: [address] Presence Presence Disease Active 2021-02 Unive rs of cardiac of cardiac 2-30 [place] 00 Medical therapy therapy Branch defibrilla defibrilla tor tor (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 PROOF READER-D) (WHISKEY PROOF READER-D) SOB SOB Disease Active 2021-02 Univers (shortness (shortness 2-29 it y of of breath[place] of breath[place] Atrial Atrial Disease Active Univers tachycardi tachycardi 2-25 it y of a a 00:00: [address] Branch Dizziness Dizziness Disease Active 2022-0 Uni vers and and 2-25 ity of gidd[place] g[place] V-tach V-tach Disease Active Univers 1-22 ity of 00:00: [place] [facility] GI bleed GI bleed Disease Active Unive rs 1-17 ity of 00:00: [place] 00 Medical Branch Rectal Rectal Disease Active Overview: Univer s bleeding bleeding 1-17 Formattin ity of 00:00: g of this note Medical might be Branch different from the original. Added automatic ally from request for surgery [id number] Refusal of Refusal of Disease Active 2020-02 U nivers blood blood 2-13 ity of transfusio transfusio 00:[place] ns as 00 Medical patient is patient is Br z[facility] Osteopenia Osteopenia Disease Active 2020-02 U nivers 1-09 ity of 00:00: [place] 00 Medical Branch UTI UTI Disease Active 2019-02 Univers (urinary (urinary 0-08 ity of tract tract 00:00: [place] infection) infection) 00 Ms dical Branch Chronic Chronic Disease Active 2019-02 [...] Univers spells spells 0-19 ity of 00:00: [place] 00 Medical Branch Acute on Acute on Disease Active Unive rs chronic chronic 9-11 ity of anemia anemia 00:00: [place] 00 Medical Branch Atypical Atypical Disease Active Unive rs chest pain chest pain 5-09 it y of 00:00: [place] 00 Medical Branch Left arm Left arm Disease Active Unive rs pain pain 5-08 ity of 00:00: [place] 00 Medical Branch Arthritis Arthritis Disease Active 2019 Uni vers of lumbar of lumbar 1-07 ity of spine spine 00:00: [place] 00 Medical Branch Degenerati Degenerati Disease Active 2019 U nivers ve ve 1-07 ity of arthritis arthritis 00:00[place] of lumbar of lumbar 00 Medi asndra spine spine Branch Spondyloli Spondyloli Disease Active [...] Univers nausea nausea 2-26 ity of 00:00: [place] [id number] Medical Branch Dysphagia Dysphagia Disease Active 2017-02 Uni vers 2-26 ity of 00:00: [place] [facility] Fatty Fatty Disease Active Univers liver liver 5- ity of 00:00: [place] [facility] Abnormal Abnormal Disease Active Unive rs LFTs LFTs 5- ity of 00:00: [place] [facility] Multiple Multiple Disease Active Overview: Un araseli renal renal 5- Formattin ity of cysts cysts 00:00: g of this note Medical might be Branch different from the original. Bosniak Type [address] Hyperkalem Hyperkalem Disease Active U nivers ia ia 5- ity of 00:00: [place] [facility] History of History of Disease Active U nivers colon colon 5- ity of polyps polyps 00:00: [place] [facility] History of History of Disease Active U nivers pulmonary pulmonary 2-17 ity of embolism embolism 00:00: [place] [facility] Branch ICD ICD Disease Active Univers (implantab (implantab 2-17 it y of le le 00:00: [place] cardiovert cardiovert 00 Me dical er-defibri er-defibri Br anch llator) in llator) in place place Atrial Atrial Disease Active Univers fibrillati fibrillati 1-16 it y of on on 00:00: [address] Branch Syncope Syncope Disease Active Univers 1-15 ity of 00:00: [address] Branch DM DM Disease Active Univers (diabetes (diabetes 8-31 ity of mellitus), mellitus), [place] type 2 type 2 00 Medical with renal with renal Br anch complicati complicati ons ons Anxiety Anxiety Disease Active Univers ity of [facility] CKD CKD Disease Active Univers (chronic (chronic ity of kidney kidney [place] disease) disease) Medica l stage 4, stage 4, Branch GFR 15-29 GFR 15-29 ml/min ml/min Epilepsy Epilepsy Disease Active Unive rs ity of [facility] Esophageal Esophageal Disease Active U nivers reflux reflux ity of [facility] HLD HLD Disease Active Univers (hyperlipi (hyperlipi it y of demia) demia) [place] [facility] HTN HTN Disease Active Univers (hypertens (hypertens it y of ion) ion) [facility] Branch 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 [place] at[place] [facility] [place] ASHLYN ASHLYN Disease Active Univers [...] tobacco Passive smoker Un iversity of use [place] [facility] History SDOH University o f Alcohol Std Drinks [place] [facility] History SDOH University o f Alcohol Binge [place] [facility] History SDOH Social Unive rsity of [facility] Med ical Together Branch History SDOH Social Unive rsity of [facility] Medical Branch History SDOH Social Unive rsity of [facility] Medical Membership Branch History SDOH Social Unive rsity of [facility] Medical Meetings Branch Exposure to 2022-03-12 2022-03-22 Not sure University of SARS-CoV-2 (event) 00:00:00 07:50:00 [place] [facility] Alcohol intake 2022-03-14 2022-03-14 Current University of 00:00:00 00:00:00 non-drinker of [facility] alcohol Branch (finding) History SDOH 2022-02-17 2022-02-17 1 University o f Alcohol Frequency 00:00:00 00:00:00 [facility] edical Branch History SDOH Social 2022-02-17 2022-02-17 5 Unive rsity of Connections Phone 00:00:00 00:00:00 [facility] edical Branch History SDNV Social 2022-02-17 2022-02-17 98 Unive rsity of Connections Living 00:00:00 00:00:00 [place] [facility] History SDOH 2022-02-17 2022-02-17 7 University o f Physical Activity 00:00:00 00:00:00 [facility] edical DPW Branch History SDNV 2022-02-17 2022-02-17 1 University o f Physical Activity 00:00:00 00:00:00 [facility] edical MPS Branch History SDNV 2022-02-17 2022-02-17 5 University o f Financial 00:00:00 00:00:00 [place] [facility] History SDNV Food 2022-02-17 2022-02-17 1 Univers ity of Worry 00:00:00 00:00:00 [place] [facility] History SDNV Food 2022-02-17 2022-02-17 1 Univers ity of Scarcity 00:00:00 00:00:00 [place] [facility] History SDNV 2022-02-17 2022-02-17 2 University o f Transport Med 00:00:00 00:00:00 [place] [facility] History [facility] 2022-02-17 2022-02-17 2 University o f Transport Non-Med 00:00:00 00:00:00 [facility] edical Branch Tobacco use and 2022-02-16 2022-02-16 Smokeless Universit y of exposure 00:00:00 00:00:00 tobacco non-user [facility] dical Branch Tobacco Comment 2022-02-16 2022-02-16 exposed to "a Univer sity of 00:00:00 00:00:00 lot" of passive [place] Med ical smoke from Branch Sex [birth year] At [birth year] Universit y of 00:00:00 00:00:00 [facility] Smoking Status Start Date Stop Date Source Never smoked tobacco [facility] Medications Ordered Filled Start Stop Current Ordering Indication Dosage Frequency Signature Comments Components Source Medication Medication Date Date Medication? Clinician (SIG) Name Name metoprolol Yes [id number] 50mg Take 1 Univers succinate 2-07 tablet by ity o f XL 50 mg 24 00:00: mouth 2 [place] hr tablet 00 (two) Medical times Branch daily. amiodarone Yes [id number] 200mg Take 1 Univers 200 mg 1-26 tablet by ity of tablet 00:00: mouth [place] 00 daily. Medical Branch amiodarone Yes [id number] 200mg Take 1 Univers 200 mg 1-26 tablet by ity of tablet 00:00: mouth [place] 00 daily. Medical Branch amiodarone Yes [id number] 200mg Take 1 Univers 200 mg 1-26 tablet by ity of tablet 00:00: mouth [place] 00 daily. Medical Branch amiodarone Yes [id number] 200mg Take 1 Univers 200 mg 1-26 tablet by ity of tablet 00:00: mouth [place] 00 daily. Medical Branch amiodarone Yes [id number] 200mg Take 1 Univers 200 mg 1-26 tablet by ity of tablet 00:00: mouth [place] 00 daily. Medical Branch metoprolol 2022- No 50mg Take 50 mg Univers succinate [...] day at 6am and 6pm furosemide Yes [id number] 40mg Take 1 Univers 40 mg 1-10 tablet by ity of tablet 00:00: mouth [place] 00 every Medical morning Branch and evening. metoprolol Yes [id number] 50mg Take 1 Univers succinate 1-10 tablet by ity o f XL 50 mg 24 00:00: mouth 2 [place] hr tablet 00 (two) Medical times Branch daily. apixaban Yes 1358 2.5mg Take 1 Univer s (ELIQUIS) 1-10 tablet by ity o f 2.5 mg 00:00: mouth 2 [place] tablet 00 (two) Medical times Branch daily. Indication s: atrial fibrillati on furosemide 2023-0 Yes [id number] 40mg Take 1 Univers 40 mg 1-10 tablet by ity of tablet 00:00: mouth [place] 00 every Medical morning Branch and evening. metoprolol 2022-0 Yes [id number] 50mg Take 1 Univers succinate 1-10 tablet [...] s: atrial fibrillati on furosemide 2022-0 Yes [id number] 40mg Take 1 Univers 40 mg 1-10 tablet by ity of tablet 00:00: mouth [place] 00 every Medical morning Branch and evening. metoprolol 2022-0 Yes [id number] 50mg Take 1 Univers succinate 1-10 tablet [...] s: atrial fibrillati on furosemide 0 Yes [id number] 40mg Take 1 Univers 40 mg 1-10 tablet by ity of tablet 00:00: mouth [place] 00 every Medical morning Branch and evening. metoprolol 2022-0 Yes [id number] 50mg Take 1 Univers succinate 1-10 tablet [...] s: atrial fibrillati on furosemide 2022-0 Yes [id number] 40mg Take 1 Univers 40 mg 1-10 tablet by ity of tablet 00:00: mouth [place] 00 every Medical morning Branch and evening. metoprolol 2022-0 Yes [id number] 50mg Take 1 Univers succinate 1-10 tablet [...] s: atrial fibrillati on furosemide 2022-0 Yes [id number] 40mg Take 1 Univers 40 mg 1-10 tablet by ity of tablet 00:00: mouth [place] 00 every Medical morning Branch and evening. metoprolol 2022-0 Yes [id number] 50mg Take 1 Univers succinate 1-10 tablet [...] s: atrial fibrillati on furosemide 2022-0 Yes [id number] 40mg Take 1 Univers 40 mg 1-10 tablet by ity of tablet 00:00: mouth [place] 00 every Medical morning Branch and evening. metoprolol 2022-0 Yes [id number] 50mg Take 1 Univers succinate 1-10 tablet [...] s: atrial fibrillati on furosemide 2022-0 Yes [id number] 40mg Take 1 Univers 40 mg 1-10 tablet by ity of tablet 00:00: mouth [place] 00 every Medical morning Branch and evening. apixaban 2022-0 Yes 1358 2.5mg Take 1 Univer s (ELIQUIS) 1-10 tablet by ity o f 2.5 mg 00:00: mouth 2 [place] tablet 00 (two) Medical times Branch daily. Indication s: atrial fibrillati on furosemide Yes [id number] 40mg Take 1 Univers 40 mg 1-10 tablet by ity of tablet 00:00: mouth [place] 00 every Medical morning Branch and evening. apixaban Yes 1358 2.5mg Take 1 Univer s (ELIQUIS) 1-10 tablet by ity o f 2.5 mg 00:00: mouth 2 [place] tablet 00 (two) Medical times Branch daily. Indication s: atrial fibrillati on metoprolol 2022- No [id number] 50mg Take 1 Univers succinate 1-10 02-06 tablet by ity of XL 50 mg 24 00:00: 00:00 mouth 2 [place] hr tablet 00 :00 (two) Medical times Branch daily. insulin NPH Yes [id number] 20U inject 20 Univers 100 unit/mL 1-02 Units ity of injection 00:00: under the [place] 00 skin every Medical morning. Branch insulin NPH Yes [id number] 20U inject 20 Univers 100 unit/mL 1-02 Units ity of injection 00:00: under the [place] 00 skin every Medical morning. Branch insulin NPH Yes [id number] 20U inject 20 Univers 100 unit/mL 1-02 Units ity of injection 00:00: under the [place] 00 skin every Medical morning. Branch insulin NPH 0 Yes [id number] 20U inject 20 Univers 100 unit/mL 1-02 Units ity of injection 00:00: under the [place] 00 skin every Medical morning. Branch insulin NPH 0 Yes [id number] 20U inject 20 Univers 100 unit/mL 1-02 Units ity of injection 00:00: under the [place] 00 skin every Medical morning. Branch insulin NPH 0 Yes [id number] 20U inject 20 Univers 100 unit/mL 1-02 Units ity of injection 00:00: under the [place] 00 skin every Medical morning. Branch insulin NPH 0 Yes [id number] 20U inject 20 Univers 100 unit/mL 1-02 Units ity of injection 00:00: under the [place] 00 skin every Medical morning. Branch insulin NPH 0 Yes [id number] 20U inject 20 Univers 100 unit/mL 1-02 Units ity of injection 00:00: under the [place] 00 skin every Medical morning. Branch insulin NPH 2022-0 Yes [id number] 20U inject 20 Univers 100 unit/mL 1-02 Units ity of injection 00:00: under the [place] 00 skin every Medical morning. Branch insulin NPH 2022-0 Yes [id number] 20U inject 20 Univers 100 unit/mL 1-02 Units ity of injection 00:00: under the [place] 00 skin every Medical morning. Branch insulin NPH 2022-0 Yes [id number] 20U inject 20 Univers 100 unit/mL 1-02 Units ity of injection 00:00: under the [place] 00 skin every Medical morning. Branch furosemide 2022- 202- No 40mg 40 mg, Univ ers (LASIX) 02-19 Oral, ity of tablet 40 19:00: 18:18 ONCE, 1 [place] mg 00 :00 dose, On Medical 02/19/22 Branch at 1300, Routine metoprolol 2022-0 Yes 50mg Take 50 mg U nivers succinate 02-19 by mouth ity of XL 50 mg 24 16:07: daily. 1 [place] hr tablet 22 tablet Medical twice a Branch day at 6am and 6pm PHENYTOIN 3-0 Yes 100mg Take 100 Uni vers ORAL 1-01 mg by ity of 16:07: mouth [place] 22 daily. Medical Take 1 Branch capsule by mouth every morning and 2 capsules in the evening. metoprolol 2022-0 Yes 50mg Take 50 mg U nivers succinate 02-19 by mouth ity of XL 50 mg [...] and 2 capsules in the evening. melatonin 2022-0 Yes 3mg 3 mg, Univers (MELATIN) 1 Oral, QHS, ity of tablet 3 mg 03:00: First dose [place] 00 on Sat [facility] 02/18/22 Branch at 2100, Until Discontinu ed, Routine insulin NPH 2022-0 Yes [id number] 15U inject 15 Univers 100 unit/mL 1- Units ity of injection 00:00: under the [place] 00 skin at Medical bedtime. Branch polyethylen 2022-0 Yes [id number] 17g Take 1 Univers e glycol 1 Packet by ity of 3350 17 00:00: mouth [place] gram powder 00 every 24 Medi sandra (twenty-fo Branch ur) hours as needed for Constipati on. insulin NPH 2022-0 Yes [id number] 15U inject 15 Univers 100 unit/mL 1-01 Units ity of injection 00:00: under the [place] 00 skin at Medical bedtime. Branch polyethylen 2022-0 Yes [id number] 17g Take 1 Univers e glycol 1-01 Packet by ity of 3350 17 00:00: mouth [place] gram powder 00 every 24 Medi sandra (twenty-fo Branch ur) hours as needed for Constipati on. insulin NPH 2022-0 Yes [id number] 15U inject 15 Univers 100 unit/mL 1-01 Units ity of injection 00:00: under the [place] 00 skin at Medical bedtime. Branch polyethylen 2022-0 Yes [id number] 17g Take 1 Univers e glycol 1-01 Packet by ity of 3350 17 00:00: mouth [place] gram powder 00 every 24 Medi sandra (twenty-fo Branch ur) hours as needed for Constipati on. insulin NPH 2022-0 Yes [id number] 15U inject 15 Univers 100 unit/mL 1-01 Units ity of injection 00:00: under the [place] 00 skin at Medical bedtime. Branch polyethylen 0 Yes [id number] 17g Take 1 Univers e glycol 1-01 Packet by ity of 3350 17 00:00: mouth [place] gram powder 00 every 24 Medi sandra (twenty-fo Branch ur) hours as needed for Constipati on. insulin NPH 0 Yes [id number] 15U inject 15 Univers 100 unit/mL 1-01 Units ity of injection 00:00: under the [place] 00 skin at Medical bedtime. Branch polyethylen 2022-0 Yes [id number] 17g Take 1 Univers e glycol 1-01 Packet by ity of 3350 17 00:00: mouth [place] gram powder 00 every 24 Medi sandra (twenty-fo Branch ur) hours as needed for Constipati on. insulin NPH 2022-0 Yes [id number] 15U inject 15 Univers 100 unit/mL 1-01 Units ity of injection 00:00: under the [place] 00 skin at Medical bedtime. Branch polyethylen 2022-0 Yes [id number] 17g Take 1 Univers e glycol 1-01 Packet by ity of 3350 17 00:00: mouth [place] gram powder 00 every 24 Medi sandra (twenty-fo Branch ur) hours as needed for Constipati on. insulin NPH Yes [id number] 15U inject 15 Univers 100 unit/mL 1-01 Units ity of injection 00:00: under the [place] 00 skin at Medical bedtime. Branch polyethylen 0 Yes [id number] 17g Take 1 Univers e glycol 1-01 Packet by ity of 3350 17 00:00: mouth [place] gram powder 00 every 24 Medi sandra (twenty-fo Branch ur) hours as needed for Constipati on. insulin NPH Yes [id number] 15U inject 15 Univers 100 unit/mL 1-01 Units ity of injection 00:00: under the [place] 00 skin at Medical bedtime. Branch polyethylen 0 Yes [id number] 17g Take 1 Univers e glycol 1-01 Packet by ity of 3350 17 00:00: mouth [place] gram powder 00 every 24 Medi sandra (twenty-fo Branch ur) hours as needed for Constipati on. insulin NPH Yes [id number] 15U inject 15 Univers 100 unit/mL 1-01 Units ity of injection 00:00: under the [place] 00 skin at Medical bedtime. Branch polyethylen 0 Yes [id number] 17g Take 1 Univers e glycol 1-01 Packet by ity of 3350 17 00:00: mouth [place] gram powder 00 every 24 Medi sandra (twenty-fo Branch ur) hours as needed for Constipati on. insulin NPH Yes [id number] 15U inject 15 Univers 100 unit/mL 1-01 Units ity of injection 00:00: under the [place] 00 skin at Medical bedtime. Branch polyethylen 0 Yes [id number] 17g Take 1 Univers e glycol 1-01 Packet by ity of 3350 17 00:00: mouth [place] gram powder 00 every 24 Medi sandra (twenty-fo Branch ur) hours as needed for Constipati on. insulin NPH 0 Yes [id number] 15U inject 15 Univers 100 unit/mL 1-01 Units ity of injection 00:00: under the [place] 00 skin at Medical bedtime. Branch polyethylen 2022-0 Yes [id number] 17g Take 1 Univers e glycol 1-01 Packet by ity of 3350 17 00:00: mouth [place] gram powder 00 every 24 Medi sandra (twenty-fo Branch ur) hours as needed for Constipati on. furosemide 2022- No [id number] 40mg Take 1 Univers 40 mg 02-19 tablet by ity of tablet 00:00: 05:59 mouth [place] 00 :00 every Medical morning Branch and evening for 30 days. furosemide 2022- No [id number] 40mg Take 1 Univers 40 mg 02-19 tablet by ity of tablet 00:00: 05:59 mouth [place] 00 :00 every Medical morning Branch and evening for 30 days. furosemide 2022- No [id number] 40mg Take 1 Univers 40 mg 02-19 tablet by ity of tablet 00:00: 00:00 mouth [place] 00 :00 every Medical morning Branch and evening for 30 days. furosemide 2022- No [id number] 40mg Take 1 Univers 40 mg 02-19 tablet by ity of tablet 00:00: 00:00 mouth [place] 00 :00 every Medical morning Branch and evening for 30 days. LORazepam 2021-02 Yes .5mg 0.5 mg, Unive rs (ATIVAN) 2-31 Oral, ity of tablet 0.5 14:35: BIDPRN, [place] mg 38 Starting Medical on Sun Branch 02/18/22 at 0835, Until Discontinu ed, [...] it y of injection 15:00: [place], QAM, [place] 20 Units 00 First dose Medic al on Sun Branch 02/17/22 at 0900, Until Discontinu ed, Routine amLODIPine 2021-02- No 10mg 10 mg, Univ ers (NORVASC) 31 Oral, ity of tablet 10 15:00: 14:59 DAILY, [place] mg 00 :07 First dose Medical on Sun Branch 02/17/22 at 0900, Until Discontinu ed, Routine sulfur 2021-02- No [id number] 5mL 5 mL, Un araseli hexafluorid 02-17 9103 Intravenou i ty of e microsphr 15:00: 15:00 s, ONCE, 1 [place] (LUMASON) 00 :00 dose, On Medica l injection 5 Sun Branch mL 02/17/22 at 0900, Routine
meat service team member approving Restricted medication : SRIRAM HEATH polyethylen 2021-02 Yes 17g 17 g, Unive rs e glycol 2-30 Oral, ity of 3350 powder 05:09: [id number], [place] 17 g 36 Starting Medical on [facility] 02/16/22 at 2309, Until Discontinu ed, Routine, Constipati on phenytoin 2021-02 Yes 200mg 200 mg, Univ ers Extended 2-30 Oral, QHS, ity o f (DILANTIN 03:00: [place] KAPSEAL) 00 on [facility] Medical capsule 200 02/16/22 Bran ch mg at 2100, Until Discontinu ed, Routine insulin NPH 2021-02 Yes 15U 15 Units, U nivers (HUMULIN N) 2-30 Subcutaneo it y of injection 03:00: [place], QHS, [place] 15 Units 00 First dose Medic al on [facility] Branch 02/16/22 at 2100, Until Discontinu ed, Routine atorvastati 2021-02 Yes 40mg 40 mg, Univ ers n (LIPITOR) 2-30 Oral, QHS, it y of tablet 40 03:00: First dose [place] mg 00 on [facility] 02/16/22 Branch at 2100, Until Discontinu ed, Routine levETIRAcet 2021-02 Yes 500mg 500 mg, Un araseli am (KEPPRA) 2-30 Oral, BID, it y of tablet 500 02:00: First dose [place] mg 00 on [facility] 02/16/22 Branch at 2000, Until Discontinu ed, Routine apixaban 2021-02 Yes 1358 5mg 5 mg, Univers (ELIQUIS) 2-30 Oral, BID, ity of tablet 5 mg 02:00: First dose [place] 00 on [facility] 02/16/22 Branch at 2000, Until Discontinu ed, Routine
Indicatio ns: Non-Valvul ar Atrial Fibrillati on furosemide 2021-02- No 40mg 40 mg, Univ ers (LASIX) 202-19 Slow IV ity of injection 02:00: 18:11 Push, [place] 40 mg 00 :42 Q12H, Medical First dose Branch on [facility] 02/16/22 at 2000, Until Discontinu ed, Routine metoprolol 2021-02- No 50mg 50 mg, Univ ers succinate 202-18 Oral, BID, ity of XL (TOPROL 02:00: 14:37 First dose [place] XL) tablet 00 :05 on [facility] Medical 50 mg 02/16/22 Branch at 2000, Until Discontinu ed, Routine acetaminoph 2021-02 Yes 650mg 650 mg, Un araseli en 2-29 Oral, ity of (TYLENOL) 23:02: Q6HPRN, [place] tablet 650 54 Starting Medic al mg [...] On [place] 02/16/22 at 1100, JACQUI furosemide 2021-02 No 40mg 40 mg, IV U nivers (LASIX) 02-16 Push, ity of injection 17:00: 17:04 ONCE, 1 [place] 40 mg 00 :00 dose, On Medical [place] [facility] 02/16/22 at 1100, JACQUI semaglutide Yes [id number] .25mg inject Univers (OZEMPIC) 8-17 0.25 mg ity of 0.25 mg or 00:00: under the [place] 0.5 mg(2 00 skin Medical mg/1.5 mL) weekly. Branch PnIj semaglutide Yes [id number] .25mg inject Univers (OZEMPIC) 8-17 0.25 mg ity of 0.25 mg or 00:00: under the [place] 0.5 mg(2 00 skin Medical mg/1.5 mL) weekly. Branch PnIj semaglutide Yes [id number] .25mg inject Univers (OZEMPIC) 8-17 0.25 mg ity of 0.25 mg or 00:00: under the [place] 0.5 mg(2 00 skin Medical mg/1.5 mL) weekly. Branch PnIj semaglutide Yes [id number] .25mg inject Univers (OZEMPIC) 8-17 0.25 mg ity of 0.25 mg or 00:00: under the [place] 0.5 mg(2 00 skin Medical mg/1.5 mL) weekly. Branch PnIj semaglutide 2021-0 Yes [id number] .25mg inject Univers (OZEMPIC) 8-17 0.25 mg ity of 0.25 mg or 00:00: under the [place] 0.5 mg(2 00 skin Medical mg/1.5 mL) weekly. Branch PnIj semaglutide 2021-0 Yes [id number] .25mg inject Univers (OZEMPIC) 8-17 0.25 mg ity of 0.25 mg or 00:00: under the [place] 0.5 mg(2 00 skin Medical mg/1.5 mL) weekly. Branch VickiIj semaglutide 0 Yes [id number] .25mg inject Univers (OZEMPIC) 8-17 0.25 mg ity of 0.25 mg or 00:00: under the [place] 0.5 mg(2 00 skin Medical mg/1.5 mL) weekly. Branch VickiIj semaglutide 0 Yes [id number] .25mg inject Univers (OZEMPIC) 8-17 0.25 mg ity of 0.25 mg or 00:00: under the [place] 0.5 mg(2 00 skin Medical mg/1.5 mL) weekly. Branch VickiIj semaglutide 0 Yes [id number] .25mg inject Univers (OZEMPIC) 8-17 0.25 mg ity of 0.25 mg or 00:00: under the [place] 0.5 mg(2 00 skin Medical mg/1.5 mL) weekly. Branch PnIj semaglutide 0 Yes [id number] .25mg inject Univers (OZEMPIC) 8-17 0.25 mg ity of 0.25 mg or 00:00: under the [place] 0.5 mg(2 00 skin Medical mg/1.5 mL) weekly. Branch PnIj semaglutide 2021-0 Yes [id number] .25mg inject Univers (OZEMPIC) 8-17 0.25 mg ity of 0.25 mg or 00:00: under the [place] 0.5 mg(2 00 skin Medical mg/1.5 mL) weekly. Branch PnIj semaglutide 2021-0 Yes [id number] .25mg inject Univers (OZEMPIC) 8-17 0.25 mg ity of 0.25 mg or 00:00: under the [place] 0.5 mg(2 00 skin Medical mg/1.5 mL) weekly. Branch PnIj semaglutide 2-0 Yes [id number] .25mg inject Univers (OZEMPIC) 8-17 0.25 mg ity of 0.25 mg or 00:00: under the [place] 0.5 mg(2 00 skin Medical mg/1.5 mL) weekly. Branch PnIj semaglutide 2-0 Yes [id number] .25mg inject Univers (OZEMPIC) 8-17 0.25 mg ity of 0.25 mg or 00:00: under the [place] 0.5 mg(2 00 skin Medical mg/1.5 mL) weekly. Branch PnIj PHENYTOIN 2-0 Yes 100mg Take 100 Uni vers ORAL 6-13 mg by ity of 13:50: mouth [place] 06 daily. Medical Take 1 Branch capsule by mouth every morning and 2 capsules in the evening. PHENYTOIN 2-0 Yes 100mg Take 100 Uni [...] and 2 capsules in the evening. amLODIPine 2-0 Yes [id number] 10mg Take 1 U nivers 10 mg 6-13 tablet by ity of tablet 00:00: mouth [place] 00 daily. Medical Branch amLODIPine 2022-0 Yes [id number] 10mg Take 1 U nivers 10 mg 6-13 tablet by ity of tablet 00:00: mouth [place] 00 daily. Medical Branch amLODIPine 2022-0 Yes [id number] 10mg Take 1 U nivers 10 mg 6-13 tablet by ity of tablet 00:00: mouth [place] 00 daily. Medical Branch amLODIPine 2022-0 Yes [id number] 10mg Take 1 U nivers 10 mg 6-13 tablet by ity of tablet 00:00: mouth [place] 00 daily. Medical Branch amLODIPine 2022-0 Yes [id number] 10mg Take 1 U nivers 10 mg 6-13 tablet by ity of tablet 00:00: mouth [place] 00 daily. Medical Branch amLODIPine 2021-0 3- No [id number] 10mg Take 1 Univers 10 mg 6-13 01-10 tablet by ity of tablet 00:00: 00:00 mouth [place] 00 :00 daily. Medical Branch amLODIPine 2021-0 2022- No [id number] 10mg Take 1 Univers 10 mg 6-13 [...] Indication s: atrial fibrillati on apixaban 2021-0 2022- No 1358 5mg Take 1 Univer s (ELIQUIS) 5 6-07 01-10 tablet by it y of mg tablet 00:00: 00:00 mouth 2 [place] 00 :00 (two) Medical times Branch daily. Indication s: atrial fibrillati on apixaban 2021-0 3- No 1358 5mg Take 1 Univer s (ELIQUIS) 5 6-07 01-10 tablet by it y of mg tablet 00:00: 00:00 mouth 2 [place] 00 :00 (two) Medical times Branch daily. Indication s: atrial fibrillati on OXCARBAZEPI 2-0 Yes [id number] TAKE 1 Univers NE 150 mg 3-08 TABLET 2 X ity of tablet 00:00: A DAY FOR [place] 00 1 WEEK Medical THEN 2 Branch TABS 2X DAY FOR 1 WEEK 3 TABLES 2XADAY OXCARBAZEPI 2022-0 Yes [id number] TAKE 1 Univers NE 150 mg 3-08 TABLET 2 X ity of tablet 00:00: A DAY FOR [place] 00 1 WEEK Medical THEN 2 Branch TABS 2X DAY FOR 1 WEEK 3 TABLES 2XADAY OXCARBAZEPI 2022-0 Yes [id number] TAKE 1 Univers [place] 150 mg 3-08 TABLET 2 X ity of tablet 00:00: A DAY FOR [place] 00 1 WEEK Medical THEN 2 Branch TABS 2X DAY FOR 1 WEEK 3 TABLES 2XADAY OXCARBAZEPI 2022-0 Yes [id number] TAKE 1 Univers [place] 150 mg 3-08 TABLET 2 X ity of tablet 00:00: A DAY FOR [place] 1 WEEK Medical THEN 2 Branch TABS 2X DAY FOR 1 WEEK 3 TABLES 2XADAY OXCARBAZEPI 2022-0 Yes [id number] TAKE 1 Univers NE 150 mg 3-08 TABLET 2 X ity of tablet 00:00: A DAY FOR [place] 1 WEEK Medical THEN 2 Branch TABS 2X DAY FOR 1 WEEK 3 TABLES 2XADAY OXCARBAZEPI 2022-0 Yes [id number] TAKE 1 Univers [place] 150 mg 3-08 TABLET 2 X ity of tablet 00:00: A DAY FOR [place] 1 WEEK Medical THEN 2 Branch TABS 2X DAY FOR 1 WEEK 3 TABLES 2XADAY OXCARBAZEPI 2022-0 Yes [id number] TAKE 1 Univers [place] 150 mg 3-08 TABLET 2 X ity of tablet 00:00: A DAY FOR [place] 00 1 WEEK Medical THEN 2 Branch TABS 2X DAY FOR 1 WEEK 3 TABLES 2XADAY OXCARBAZEPI 2022-0 Yes [id number] TAKE 1 Univers NE 150 mg 3-08 TABLET 2 X ity of tablet 00:00: A DAY FOR [place] 1 WEEK Medical THEN 2 Branch TABS 2X DAY FOR 1 WEEK 3 TABLES 2XADAY OXCARBAZEPI 2022-0 Yes [id number] TAKE 1 Univers NE 150 mg 3-08 TABLET 2 X ity of tablet 00:00: A DAY FOR [place] 1 WEEK Medical THEN 2 Branch TABS 2X DAY FOR 1 WEEK 3 TABLES 2XADAY OXCARBAZEPI 2022-0 Yes [id number] TAKE 1 Univers [place] 150 mg 3-08 TABLET 2 X ity of tablet 00:00: A DAY FOR [place] 1 WEEK Medical THEN 2 Branch TABS 2X DAY FOR 1 WEEK 3 TABLES 2XADAY OXCARBAZEPI 2022-0 Yes [id number] TAKE 1 Univers [place] 150 mg 3-08 TABLET 2 X ity of tablet 00:00: A DAY FOR [place] 1 WEEK Medical THEN 2 Branch TABS 2X DAY FOR 1 WEEK 3 TABLES 2XADAY OXCARBAZEPI 2022-0 Yes [id number] TAKE 1 Univers [place] 150 mg 3-08 TABLET 2 X ity of tablet 00:00: A DAY FOR [place] 1 WEEK Medical THEN 2 Branch TABS 2X DAY FOR 1 WEEK 3 TABLES 2XADAY OXCARBAZEPI 2022-0 Yes [id number] TAKE 1 Univers [place] 150 mg 3-08 TABLET 2 X ity of tablet 00:00: A DAY FOR [place] 1 WEEK Medical THEN 2 Branch TABS 2X DAY FOR 1 WEEK 3 TABLES 2XADAY OXCARBAZEPI 2022-0 Yes [id number] TAKE 1 Univers NE 150 mg 3-08 TABLET 2 X ity of tablet 00:00: A DAY FOR [place] 1 WEEK Medical THEN 2 Branch TABS 2X DAY FOR 1 WEEK 3 TABLES 2XADAY metoprolol 2022-0 Yes 100mg Take 100 Un araseli tartrate 2-25 mg by ity of 100 mg 10:14: mouth 2 [place] tablet 06 (two) Medical times Branch daily. metoprolol 2022-0 Yes 50mg Take 50 mg U nivers succinate 2-25 by mouth ity of XL 50 mg 24 10:14: daily. 1 [place] hr tablet 06 tablet Medical twice a Branch day at 6am and 6pm metoprolol 2022-0 Yes 100mg Take 100 Un araseli tartrate 2-25 mg by ity of 100 mg 10:14: mouth 2 [place] tablet 06 (two) Medical times Branch daily. metoprolol 2022-0 Yes 50mg Take 50 mg U nivers succinate 2-25 by mouth ity of XL 50 mg 24 10:14: daily. 1 [place] hr tablet 06 tablet Medical twice a Branch day at 6am and 6pm metoprolol 2021-0 Yes 100mg Take 100 Un araseli tartrate 2-25 mg by ity of 100 mg 10:14: mouth 2 [place] tablet 06 (two) Medical times Branch daily. metoprolol 0 Yes 50mg Take 50 mg U nivers succinate 2-25 by mouth ity of XL 50 mg 24 10:14: daily. 1 [place] hr tablet 06 tablet Medical twice a Branch day at 6am and 6pm insulin NPH 2021-0 Yes [id number] 10U inject Univers (NOVOLIN N 04-13 10-15 ity of NPH U-100 00:00: Units [place] INSULIN) 00 under the Medica l 100 unit/mL skin every Br anch injection evening. insulin NPH 0 Yes [id number] 10U inject Univers (NOVOLIN N 04-13 10-15 ity of NPH U-100 00:00: Units [place] INSULIN) 00 under the Medica l 100 unit/mL skin every Br anch injection evening. insulin NPH 0 Yes [id number] 10U inject Univers (NOVOLIN N 04-13 10-15 ity of NPH U-100 00:00: Units [place] INSULIN) 00 under the Medica l 100 unit/mL skin every Br anch injection evening. insulin NPH 3- No [id number] 10U inject Univers (NOVOLIN N 04-13 10-15 ity of NPH U-100 00:00: 00:00 Units [place] INSULIN) 00 :00 under the Medica l 100 unit/mL skin every Br anch injection evening. furosemide 2021-0 Yes [id number] 20mg Take 1 Univers 20 mg 1-27 tablet by ity of tablet 00:00: mouth [place] 00 daily. Medical Branch levETIRAcet 2021-0 Yes [id number] 500mg Take 1 Univers am 500 mg 1-27 tablet by ity o f tablet 00:00: mouth 2 [place] 00 (two) Medical times Branch daily. furosemide 2021-0 Yes [id number] 20mg Take 1 Univers 20 mg 1-27 tablet by ity of tablet 00:00: mouth [place] 00 daily. Medical Branch levETIRAcet 2021-0 Yes [id number] 500mg Take 1 Univers am 500 mg 1-27 tablet by ity o f tablet 00:00: mouth 2 [place] 00 (two) Medical times Branch daily. furosemide 2-0 Yes [id number] 20mg Take 1 Univers 20 mg 1-27 tablet by ity of tablet 00:00: mouth daily. Medical Branch levETIRAcet 2-0 Yes [id number] 500mg Take 1 Univers am 500 mg 1-27 tablet by ity o f tablet 00:00: mouth (two) Medical times Branch daily. levETIRAcet 2-0 Yes [id number] 500mg Take 1 Univers am 500 mg 1-27 tablet by ity o f tablet 00:00: mouth (two) Medical times Branch daily. levETIRAcet 2-0 Yes [id number] 500mg Take 1 Univers am 500 mg 1-27 tablet by ity o f tablet 00:00: mouth (two) Medical times Branch daily. levETIRAcet 2-0 Yes [id number] 500mg Take 1 Univers am 500 mg 1-27 tablet by ity o f tablet 00:00: mouth (two) Medical times Branch daily. levETIRAcet 2021-0 Yes [id number] 500mg Take 1 Univers am 500 mg 1-27 tablet by ity o f tablet 00:00: mouth (two) Medical times Branch daily. levETIRAcet 2-0 Yes [id number] 500mg Take 1 Univers am 500 mg 1-27 tablet by ity o f tablet 00:00: mouth (two) Medical times Branch daily. levETIRAcet 2-0 Yes [id number] 500mg Take 1 Univers am 500 mg 1-27 tablet by ity o f tablet 00:00: mouth (two) Medical times Branch daily. levETIRAcet 2-0 Yes [id number] 500mg Take 1 Univers am 500 mg 1-27 tablet by ity o f tablet 00:00: mouth (two) Medical times Branch daily. levETIRAcet 2-0 Yes [id number] 500mg Take 1 Univers am 500 mg 1-27 tablet by ity o f tablet 00:00: mouth (two) Medical times Branch daily. levETIRAcet 2-0 Yes [id number] 500mg Take 1 Univers am 500 mg 1-27 tablet by ity o f tablet 00:00: mouth 2 00 (two) Medical times Branch daily. levETIRAcet 2021-0 Yes [id number] 500mg Take 1 Univers am 500 mg 1-27 tablet by ity o f tablet 00:00: mouth 2 (two) Medical times Branch daily. levETIRAcet 2021-0 Yes [id number] 500mg Take 1 Univers am 500 mg 1-27 tablet by ity o f tablet 00:00: mouth 2 (two) Medical times Branch daily. furosemide 0 3- No [id number] 20mg Take 1 Univers 20 mg 1-27 02-19 tablet by ity of tablet 00:00: 00:00 mouth [place] 00 :00 daily. Medical Branch pantoprazol 0 Yes [id number] 40mg Take 1 Univers e 40 mg EC 1-21 tablet by ity of tablet 00:00: mouth 00 daily. Medical Branch pantoprazol 0 Yes [id number] 40mg Take 1 Univers e 40 mg EC 1-21 tablet by ity of tablet 00:00: mouth 00 daily. Medical Branch pantoprazol 0 Yes [id number] 40mg Take 1 Univers e 40 mg EC 1-21 tablet by ity of tablet 00:00: mouth 00 daily. Medical Branch pantoprazol 0 Yes [id number] 40mg Take 1 Univers e 40 mg EC 1-21 tablet by ity of tablet 00:00: mouth [place] 00 daily. Medical Branch pantoprazol 2021-0 Yes [id number] 40mg Take 1 Univers e 40 mg EC 1-21 tablet by ity of tablet 00:00: mouth [place] 00 daily. Medical Branch pantoprazol 0 Yes [id number] 40mg Take 1 Univers e 40 mg EC 1-21 tablet by ity of tablet 00:00: mouth 00 daily. Medical Branch pantoprazol 2021-0 Yes [id number] 40mg Take 1 Univers e 40 mg EC 1-21 tablet by ity of tablet 00:00: mouth [place] 00 daily. Medical Branch pantoprazol 2021-0 Yes [id number] 40mg Take 1 Univers e 40 mg EC 1-21 tablet by ity of tablet 00:00: mouth [place] 00 daily. Medical Branch pantoprazol 2021-0 Yes [id number] 40mg Take 1 Univers e 40 mg EC 1-21 tablet by ity of tablet 00:00: mouth [place] 00 daily. Medical Branch pantoprazol Yes [id number] 40mg Take 1 Univers e 40 mg EC 1-21 tablet by ity of tablet 00:00: mouth [place] 00 daily. Medical Branch pantoprazol 0 Yes [id number] 40mg Take 1 Univers e 40 mg EC 1-21 tablet by ity of tablet 00:00: mouth [place] 00 daily. Medical Branch pantoprazol 0 Yes [id number] 40mg Take 1 Univers e 40 mg EC 1-21 tablet by ity of tablet 00:00: mouth [place] 00 daily. Medical Branch pantoprazol 0 Yes [id number] 40mg Take 1 Univers e 40 mg EC 1-21 tablet by ity of tablet 00:00: mouth [place] 00 daily. Medical Branch pantoprazol Yes [id number] 40mg Take 1 Univers e 40 mg EC 1-21 tablet by ity of tablet 00:00: mouth [place] 00 daily. Medical Branch atorvastati 2020-02 Yes [id number] 40mg Take 1 Univers n 40 mg 2-14 tablet by ity of tablet 00:00: mouth at [place] 00 bedtime. Medical Branch insulin 2020-02 Yes 8U inject 8 Univer s regular 2-14 Units ity of human 00:00: under the [place] (NOVOLIN R 00 skin Medical REGULAR daily. Branch U-100 Daily at [facility]) 100 noon unit/mL injection atorvastati 2020-02 Yes [id number] 40mg Take 1 Univers n 40 mg 2-14 tablet by ity of tablet 00:00: mouth at [place] 00 bedtime. Medical Branch insulin 2020-02 Yes 8U inject 8 Univer s regular 2-14 Units ity of human 00:00: under the [place] (NOVOLIN R 00 skin Medical REGULAR daily. Branch U-100 Daily at [facility]) 100 noon unit/mL injection atorvastati 2020-02 Yes [id number] 40mg Take 1 Univers n 40 mg 2-14 tablet by ity of tablet 00:00: mouth at [place] 00 bedtime. Medical Branch insulin 2020-02 Yes 8U inject 8 Univer s regular 2-14 Units ity of human 00:00: under the [place] (NOVOLIN R 00 skin Medical REGULAR daily. Branch U-100 Daily at [facility]) 100 noon unit/mL injection atorvastati 2020-02 Yes [id number] 40mg Take 1 Univers n 40 mg 2-14 tablet by ity of tablet 00:00: mouth at [place] [address] bedtime. Medical Branch atorvastati 2020-02 Yes [id number] 40mg Take 1 Univers n 40 mg 2-14 tablet by ity of tablet 00:00: mouth at [place] [address] bedtime. Medical Branch atorvastati 2020-02 Yes [id number] 40mg Take 1 Univers n 40 mg 2-14 tablet by ity of tablet 00:00: mouth at [place] [address] bedtime. Medical Branch atorvastati 2020-02 Yes [id number] 40mg Take 1 Univers n 40 mg 2-14 tablet by ity of tablet 00:00: mouth at [place] [address] bedtime. Medical Branch atorvastati 2020-02 Yes [id number] 40mg Take 1 Univers n 40 mg 2-14 tablet by ity of tablet 00:00: mouth at [place] [address] bedtime. Medical Branch atorvastati 2020-02 Yes [id number] 40mg Take 1 Univers n 40 mg 2-14 tablet by ity of tablet 00:00: mouth at [place] [address] bedtime. Medical Branch atorvastati 2020-02 Yes [id number] 40mg Take 1 Univers n 40 mg 2-14 tablet by ity of tablet 00:00: mouth at [place] [address] bedtime. Medical Branch atorvastati 2020-02 Yes [id number] 40mg Take 1 Univers n 40 mg 2-14 tablet by ity of tablet 00:00: mouth at [place] [address] bedtime. Medical Branch atorvastati 2020-02 Yes [id number] 40mg Take 1 Univers n 40 mg 2-14 tablet by ity of tablet 00:00: mouth at [place] [address] bedtime. Medical Branch atorvastati 2020-02 Yes [id number] 40mg Take 1 Univers n 40 mg 2-14 tablet by ity of tablet 00:00: mouth at [place] [address] bedtime. Medical Branch atorvastati 2020-02 Yes [id number] 40mg Take 1 Univers n 40 mg 2-14 tablet by ity of tablet 00:00: mouth at [place] [address] bedtime. Medical Branch insulin 2020-02- No 8U inject 8 Unive rs regular 2-14 01-01 Units ity of human 00:00: 00:00 under the [place] (NOVOLIN R 00 :00 skin Medical REGULAR daily. Branch U-100 Daily at [facility]) 100 noon unit/mL injection Blood-Gluco [...] Immunizations Ordered Filled Immunization Date Status Comments [facility] e Immunization Name Name Influenza Virus [...] 00:00:00 [place] Medi sandra BOOSTER VACCINE Branch Influenza Virus 2020-12-03 Completed Universit y of Vaccine,quad 00:00:00 [place] Medica l Im,preserve Free Branch 65+ Pneumococcal 2020-12-03 Completed University o f Polysaccharide, 00:00:00 [place] Med ical PPSV23 (PNEUMOVAX) Branch Influenza Virus [...] [facility] dical (Prevnar 13) Branch Pneumococcal 13 2019-12-19 Completed Universit y of Conjugate, PCV13 00:00:00 [facility] dical (Prevnar 13) Branch Pneumococcal 13 2019-12-19 Completed Universit y of Conjugate, PCV13 00:00:00 [facility] dical (Prevnar 13) Branch Pneumococcal 13 2019-12-19 Completed Universit y of Conjugate, PCV13 00:00:00 [facility] dical (Prevnar 13) Branch Pneumococcal 13 2019-12-19 Completed Universit y of Conjugate, PCV13 00:00:00 [facility] dical (Prevnar 13) Branch Pneumococcal 13 2019-12-19 [...] [facility] dical (Prevnar 13) Branch Pneumococcal 13 2019-12-19 Completed Universit y of Conjugate, PCV13 00:00:00 [facility] dical (Prevnar 13) Branch Pneumococcal 13 2019-12-19 Completed Universit y of Conjugate, PCV13 00:00:00 [facility] dical (Prevnar 13) Branch Influenza Virus 2019-11-22 Completed Universit y of Vaccine Recomb Quad 00:00:00 [place] Medical IM, Preserv and ABX Branc h Free 18-64 YRS Influenza Virus 2019-11-22 Completed Universit y of Vaccine Recomb Quad 00:00:00 [place] Medical IM, Preserv and ABX Branc h [...] Universit y of Vaccine Recomb Quad 00:00:00 [place] [facility] IM, Preserv and ABX Branc h [...] Dosage 2018-03-25 Completed Unive rsity of 00:00:00 [place] [facility] HEP B, Adult Dosage 2018-03-25 Completed Unive rsity of 00:00:00 [facility] Branch HEP B, Adult Dosage 2018-03-25 Completed Unive rsity of 00:00:00 [place] [facility] HEP B, Adult Dosage 2018-03-25 Completed Unive rsity of 00:00:00 [place] [facility] HEP B, Adult Dosage 2018-03-25 Completed Unive rsity of 00:00:00 [place] [facility] HEP B, Adult Dosage 2018-03-25 Completed Unive rsity of 00:00:00 [place] [facility] HEP B, Adult Dosage 2018-03-25 Completed Unive rsity of 00:00:00 [place] [facility] HEP B, Adult Dosage 2018-03-25 Completed Unive rsity of 00:00:00 [place] [facility] HEP B, Adult Dosage 2018-03-25 [...] Dosage 2017-09-05 Completed Unive rsity of 00:00:00 [place] [facility] HEP B, Adult Dosage 2017-09-05 Completed Unive rsity of 00:00:00 [place] [facility] HEP B, Adult Dosage 2017-09-05 Completed Unive rsity of 00:00:00 [place] [facility] HEP B, Adult Dosage 2017-09-05 Completed Unive rsity of 00:00:00 [facility] Pneumococcal 13 2015-02-19 Completed Universit [...] ical PPSV23 (PNEUMOVAX) Branch Pneumococcal 2011-02-19 Completed [place] o f Polysaccharide, 00:00:00 [place] Med ical PPSV23 (PNEUMOVAX) Branch Pneumococcal 2011-02-19 Completed [place] o f Polysaccharide, 00:00:00 [place] Med ical PPSV23 (PNEUMOVAX) Branch Vital Signs Vital Name Observation Time Observation Value Comments Source Systolic blood 2022-03-16 14:28:00 128 mm[Hg] Univer sity of [facility] Diastolic blood 2022-03-16 14:28:00 70 mm[Hg[facility] Heart rate 2022-03-16 14:28:00 93 /min [facility] Body temperature 2022-03-16 14:28:00 35.67 Lizz [facility] Respiratory rate 2022-03-16 14:28:00 17 /min [facility] Body weight 2022-03-16 14:28:[address] [facility] BMI 2022-03-16 14:28:00 34.90 kg/m2 [facility] Oxygen saturation in 2022-03-16 14:28:00 98 /min [facility] Arterial blood by [facility] Pulse oximetry Branch Systolic blood 2022-03-14 19:37:00 138 mm[Hg] Univer sity of [facility] Diastolic blood 2022-03-14 19:37:00 87 mm[Hg] Unive rsity of [facility] Heart rate 2022-03-14 19:37:00 94 /min [facility] Respiratory rate 2022-03-14 19:37:00 20 /min [facility] Body height 2022-03-14 19:37:[address] [facility] Body weight 2022-03-14 19:37:[address] [facility] BMI 2022-03-14 19:37:00 34.76 kg/m2 Universi ty of [place] [facility] Oxygen saturation in 2022-03-14 19:37:00 99 /min University of Arterial blood by [facility] Pulse oximetry Branch Systolic blood 2022-02-28 14:57:00 130 mm[Hg] Univer sity of pressure [place] [facility] Diastolic blood 2022-02-28 14:57:00 83 mm[Hg] Unive rsity of pressure [place] [facility] Heart rate 2022-02-28 14:57:00 117 /min Universi ty of [place] [facility] Respiratory rate 2022-02-28 14:57:00 20 /min Univ ersity of [place] [facility] Body height 2022-02-28 14:57:00 152.4 cm Universi ty of [place] [facility] Body weight 2022-02-28 14:57:00 80.377 kg Universi ty of [place] [facility] BMI 2022-02-28 14:57:00 34.61 kg/m2 Universi ty of [place] [facility] Oxygen saturation in 2022-02-28 14:57:00 99 /min University of Arterial blood by [facility] Pulse oximetry Branch Systolic blood 2022-02-19 17:58:00 140 mm[Hg] Univer sity of pressure [place] [facility] Diastolic blood 2022-02-19 17:58:00 95 mm[Hg] Unive rsity of pressure [place] [facility] Heart rate 2022-02-19 17:58:00 115 /min Universi ty of [place] [facility] Body temperature 2022-02-19 13:46:00 36.78 Lizz Univ ersity of [place] [facility] Respiratory rate 2022-02-19 13:46:00 18 /min Univ ersity of [place] [facility] Oxygen saturation in 2022-02-19 13:46:00 94 /min University of Arterial blood by [facility] Pulse oximetry Branch Body weight 2022-02-18 10:44:00 83.462 kg Universi ty of [place] [facility] BMI 2022-02-18 10:44:00 35.94 kg/m2 Universi ty [facility] [place] [facility] Systolic blood 2022-02-16 16:07:00 116 mm[Hg] Univer sity of pressure [place] [facility] Diastolic blood 2022-02-16 16:07:00 71 mm[Hg] Unive rsity of [facility] Heart rate 2022-02-16 16:07:00 85 /min [facility] Body temperature 2022-02-16 16:07:00 36.89 Lizz [facility] Respiratory rate 2022-02-16 16:07:00 17 /min [facility] Body weight 2022-02-16 16:07:[address] [facility] BMI 2022-02-16 16:07:00 36.52 kg/m2 [facility] Oxygen saturation in 2022-02-16 16:07:00 96 /min [facility] Arterial blood by [facility] Pulse oximetry [place] Systolic blood 2021-10-05 15:13:00 152 mm[Hg] Univer sity of [facility] Diastolic blood 2021-10-05 15:13:00 77 mm[Hg] [facility] height 2021-10-05 15:12:[address] [facility] Body weight 2021-10-05 15:12:[address] [facility] BMI 2021-10-05 15:12:00 38.02 kg/m2 [facility] Procedures Procedure Date / Time Performing Clinician Source Performed AUTHORIZATION FOR RELEASE 2022-03-23 06:01:00 Doctor Unassigned, [facility] OF [facility] [place] [facility] FLU 2022-03-16 14:43:42 Silverio Adam [facility] VACC(),65+YR,0.5 Medica l Branch ML,IM,ADJUVANTED,QUAD(FLU AD) POCT GLUCOSE (AUTOMATED) 2022-02-19 17:59:00 Brii Samson [facility] XR CHEST 2 VW 2022-02-19 16:23:57 Sriram Heath [facility] POCT GLUCOSE (AUTOMATED) 2022-02-19 13:45:00 Brii Samson [facility] MAGNESIUM 2022-02-19 12:23:00 Rocael Vaughan [facility] BASIC METABOLIC PANEL 2022-02-19 12:23:00 Rocael Vaughan [facility] (NA, K, CL, CO2, GLUCOSE, Medica l Branch BUN, CREATININE, CA) CBC WITH DIFF 2022-02-19 12:23:00 Rocael Vaughan [facility] N-TERMINAL PRO-BNP 2022-02-19 12:23:00 Rocael Vaughan [facility] POCT GLUCOSE (AUTOMATED) 2022-02-19 07:07:00 OvMarcie youngi Uni [facility] POCT GLUCOSE (AUTOMATED) 2022-02-19 06:10:00 Ovhannah [facility] PO[facility]SE ([facility]OMATED) 2022-02-19 03:34:00 OvEdwardo younglani Uni [facility] POCT GLUCOSE (AUTOMATED) 2022-02-18 23:14:00 OvEdwardo younglani Uni [facility] POCT GLUCOSE (AUTOMATED) 2022-02-18 17:29:00 Ovhannah Brii Exosite [facility] POCT GLUCOSE (AUTOMATED) 2022-02-18 13:40:00 Chapin Brii Exosite [facility] BASIC METABOLIC PANEL 2022-02-18 10:53:00 Rocael Vaughan [facility] (NA, K, CL, CO2, GLUCOSE, Medica l Branch BUN, CREATININE, CA) LIPID PANEL (80833)(TOTAL 2022-02-18 10:53:00 [facility] CHOLESTEROL, Medical Branch TRIGLYCERIDES, HDL) CBC WITH DIFF 2022-02-18 10:53:00 [facility] N-TERMINAL PRO-BNP 2022-02-18 10:53:00 Rocael Vaughan [facility] POCT GLUCOSE (AUTOMATED) 2022-02-18 02:34:00 OvMarcie youngi Uni [facility] POCT GLUCOSE (AUTOMATED) 2022-02-17 22:16:00 Ovhannah Brii Uni [facility] POCT GLUCOSE (AUTOMATED) 2022-02-17 17:45:00 [facility] PO[facility] ([facility]) 2022-02-17 14:01:00 Chapin [facility] TRANSTHORACIC ECHO (TTE) 2022-02-17 13:56:[address] [facility] COMPLETE W/ CONTRAST Medical Bra nch MAGNESIUM 2022-02-17 09:47:00 Chapin [facility] BASIC METABOLIC PANEL 2022-02-17 09:47:00 Chapin [facility] (NA, K, CL, CO2, GLUCOSE, Medica l Branch BUN, CREATININE, CA) N-TERMINAL PRO-BNP 2022-02-17 09:47:00 Chapin [facility] POCT GLUCOSE (AUTOMATED) 2022-02-17 03:55:00 Chapin [facility] POCT GLUCOSE (AUTOMATED) 2022-02-17 03:16:00 Chapin [facility] URINALYSIS 2022-02-16 18:07:00 Bird [facility] XR CHEST 1 VW 2022-02-16 17:06:49 Bird [facility] LIPASE 2022-02-16 16:59:00 Bird [facility] TROPONIN I 2022-02-16 16:59:00 Bird [facility] HEPATIC FUNCTION PANEL 2022-02-16 16:59:00 Bird [facility] ([id number]) (ALB,T.PRO,BILI [facility] T,BU/BC,ALT,AST,ALK PHOS) BASIC METABOLIC PANEL 2022-02-16 16:59:00 Bird, [facility] (NA, K, CL, CO2, GLUCOSE, Medica l Branch BUN, CREATININE, CA) CBC WITH DIFF 2022-02-16 16:59:00 Bird [facility] GLYCOSYLATED HEMOGLOBIN 2022-02-16 16:59:00 Chapin [facility] (A1C) [facility] N-TERMINAL PRO-BNP 2022-02-16 16:59:00 Marina Pang [facility] y of [facility] COVID-19 (ID NOW RAPID 2022-02-16 16:59:00 Marina Pang [facility] TESTING) Medical Branch LAB ONLY COVID 2022-02-16 16:59:00 Marina Pang [facility] [place] INTERPRETATION [facility] HB ECG ROUTINE & RHYTHM 2022-02-16 16:52:36 Marina Pang [facility] CONSENT/REFUSAL FOR 2022-02-16 16:40:37 Doctor Unassigned, [facility] DIAGNOSIS AND TREATMENT [place] [facility] POCT HEMOGLOBIN A1C TEST 2021-10-05 15:15:00 Amita Gomez [facility] Encounters Start End Encounter Admission Attending Care Care Encounter Source Date/Time Date/Time Type Type Clinicians Facility Department ID 2022-06-14 Outpatient Lamb, [facility] [id number] Common 12:46:01 Elaine [id number] [facility] 2022-06-02 Outpatient Lamb, STYULIETLC [facility] [id number] Common 14:48:01 Elaine [id number] [facility] 2020-12-17 Emergency [facility] [id number] Univers 21:39:43 [facility] 2020-12-17 [facility] [id number] Univers 18:26:55 alvino BARAKAT [facility] 2020-12-17 Emergency [facility] [id number] Univers 16:06:19 [facility] 2022-06-15 2022-06-15 Outpatient Moustapha ADAM [facility] [id number] Univers 09:00:00 09:00:00 SILVERIO [facility] 2022-04-27 2022-04-27 Outpatient Moustapha HEATH [facility] [id number] Univers 10:20:00 10:20:00 SRIRAM grove [facility] 2022-03-27 2022-03-27 Refisra Heath [facility] 1.2.840.114 [id number] Univers 00:00:00 00:00:00 Qiachaim PALOMO 350.1.13.10 ity of [facility] [place].2.[place] [phone] Ms dical NAL 059 [facility] 2022-03-23 2022-03-23 Orders Doctor YANA 1.2.840.114 [id number] Univers 00:00:00 00:00:00 Only Unassigned, CARLOS 350.1.13.10 it[facility] 4.2.7.2.686 Bernabe as [phone] [address] 2022-03-22 2022-03-22 Continuous Process Coffee Roaster 2, Adc Lab [facility] 1.2.840.114 [id number] Univers 08:00:00 08:15:00 Visit Kia Silverio LENORAWAQAS 350.1.13.10 ity of [facility] 4.2.7.2.[place] [phone] Ms dicmo NAL 353 [facility] 2022-03-22 2022-03-22 [facility] [id number] Univers 08:00:00 08:00:00 SILVERIO ity [facility] 2022-03-16 2022-03-16 Outpatient [facility] [id number] Univers 08:40:00 09:58:33 SILVERIO ity [facility] 2022-03-16 2022-03-16 [facility] 1.2.840.114 [id number] Univers 08:40:00 09:00:00 [facility] 350.1.13.10 i ty of [facility] 4.2.7.2.[place] [id number] Ms dical NAL 059 [facility] 2022-03-14 2022-03-14 Office [facility] 1.2.840.114 [id number] Univers 13:40:00 14:00:00 Visit Sriram COOLEYWAQAS 350.1.13.10 ity of [facility] 4.2.7.2.[place] [phone] Ms dical NAL [address] [place] [address] 2022-03-14 2022-03-14 Outpatient R KUMAR, [facility] [id number] Univers 13:40:00 13:40:00 SRIRAM de oliveira o f [facility] 2022-03-09 2022-03-09 Outpatient R INEZANI, [facility] [id number] Univers 09:59:09 23:59:00 SILVERIO ity of [facility] 2022-02-28 2022-02-28 Outpatient R KUMAR, [facility] [id number] Univers 09:00:00 09:16:53 SRIRAM de oliveira o f [facility] 2022-02-28 2022-02-28 Office Kumar, [facility] 1.2.840.114 [id number] Univers 09:00:00 09:16:53 Visit Sriram [place] 350.1.13.10 ity of [place].7.2.[place] [phone] Ms dical NAL 9 [facility] 2022-02-21 2022-02-21 Transition JONO Galvan 1.2.840.114 [id number] Univers 00:00:00 00:00:00 of Care Nara MG 350.1.13.10 it y of [place].2.7.2.686 [place] [id number] [facility] 403 Branch 2022-02-16 2022-02-19 Inpatient X CHAPIN [facility] SAMI [id number] Univers 10:48:00 16:07:00 BRII ity of [facility] 2022-02-16 2022-02-19 Hospital Bird Jose ManuelLeilani [facility] 1.2.840.11 [id number] Univers 10:48:00 16:07:00 Encounter Brii Samson 350.1.13.10 ity of [facility] 4.2.7.2.686 [place] CAMPUS [id number] [facility] 081 Branch 2022-02-16 2022-02-16 Urgent Fang Perez [facility] 1.2.840.114 [id number] Univers 09:45:00 10:05:00 Care Unknown, Attending HEALTH 350.1.13.10 ity of [place] 4.2.7.2.686 Bernabe as HUMPHREY?BLEA [id number] Ms sherif [facility] [address] [place] MEDICAL OFFICE BUILDING 2022-02-16 2022-02-16 Outpatient R CASSI [facility] [id number] Univers 09:45:00 09:45:00 FANG itkelsie [facility] 2022-01-31 2022-01-31 Outpatient R KUMAR [facility] [id number] Univers 14:20:00 14:20:00 SRIRAM de oliveira o maine [facility] 2022-01-31 2022-01-31 Outpatient R KUMAR [facility] [id number] Univers 14:20:00 14:20:00 SRIRAM de oliveira o maine [facility] 2021-12-02 2021-12-02 Out[facility] [id number] Univers 10:20:00 10:20:00 [facility] 2021-11-25 2021-11-25 Outpatient [facility] [id number] Univers 10:20:00 10:20:00 SILVERIO [facility] 2021-11-25 2021-11-25 Outpatient R KIA [facility] [id number] Univers 10:20:00 10:20:00 [facility] 2021-10-05 2021-10-05 Outpatient R JASON LEVI [facility] [id number] Univers 10:30:00 11:22:11 AMITA GOMEZ [facility] 2021-10-05 2021-10-05 Office Amita Gomez [facility] 1.2.840.114 [id number] Univers 10:30:00 11:22:11 Visit HEALTH 350.1.13.10 it y of [place] 4.2.7.2.686 Bernabe as HUMPHREY?BLEA [id number] Ms sherif KELSI [address] [place] MEDICAL OFFICE BUILDING 2021-09-21 2021-09-21 Telephone [facility] 1.2.747.858 [id number] Univers 00:00:00 00:00:00 Wentong HEALTH 350.1.13.10 it y of [place] 4.2.7.2.686 Bernabe as HUMPHREY?BLEA [phone] Ms dical KNEY [address] [place] MEDICAL OFFICE BUILDING 2021-08-19 2021-08-19 Outpatient R SEWANI, [facility] [id number] Univers 11:20:00 11:20:00 SILVERIO [facility] 2021-08-16 2021-08-16 Outpatient R CASTLE, [facility] [id number] Univers 13:00:00 13:00:00 WENTONG [facility] 2021-08-01 2021-08-01 Office Kumar, [facility] 1.2.840.114 [id number] Univers 13:40:00 14:02:37 Visit Sriram [place] 350.1.13.10 ity jarek [place].2.[place] [phone] Ms sherif NAL 059 Branch [facility] 2021-08-01 2021-08-01 Outpatient R KUMAR, [facility] [id number] Univers 13:40:00 14:02:37 SRIRAM fergusony o [facility] 2021-08-01 2021-08-01 Outpatient R KUMAR, [facility] [id number] Univers 13:40:00 13:40:00 SRIRAM fergusony o [facility] 2021-08-01 2021-08-01 Outpatient R KUMAR, [facility] [id number] Univers 13:40:00 13:40:00 SRIRAM fergusony o [facility] 2021-08-01 2021-08-01 Outpatient R KUMAR, [facility] [id number] Univers 13:40:00 13:40:00 SRIRAM fergusony o [facility] 2021-08-01 2021-08-01 Outpatient R KUMAR, [facility] [id number] Univers 13:40:00 13:40:00 SRIRAM ity o [facility] 2021-07-22 2021-07-22 Refill Kumar, [facility] 1.2.840.114 [id number] Univers 00:00:00 00:00:00 Sriram [place] 350.1.13.10 ity jarek [place] [id number] Ms dical NAL 9 [facility] 2021-06-24 2021-06-24 Outpatient R KIA [facility] [id number] Univers 10:00:00 10:46:29 [facility] 2021-06-24 2021-06-24 Office [facility] 1.2.840.114 [id number] Univers 10:00:00 10:20:00 Visit Silverio PAL[place] 350.1.13.10 i ty of [facility] 4.2.7.2.686 [place] PROFESSIO [id number] Ms dical NAL [address] [place] [address] 2021-06-24 2021-06-24 Outpatient R KIA, [facility] [id number] Univers 10:00:00 10:00:00 SILVERIO ity [facility] 2021-06-24 2021-06-24 Out[facility] [id number] Univers 10:00:00 10:00:00 SILVERIO [facility] 2021-06-10 2021-06-10 Outpatient R [facility] [id number] Univers 10:46:49 23:59:00 [facility] 2021-05-23 2021-05-23 Outpatient R KUMAR, [facility] [id number] Univers 15:00:00 15:00:00 SRIRAM ity o [facility] 2021-05-04 2021-05-04 Outpatient R KUMAR, [facility] [id number] Univers 08:00:00 23:59:00 QIANGJUN ity o f [facility] 2021-05-04 2021-05-04 Outpatient R KUMAR, [facility] [id number] Univers 08:00:00 08:00:00 DIMITRIJUN ity o f [facility] 2021-04-28 2021-04-28 Outpatient R BROOKS [facility] [id number] Univers 13:00:00 14:03:10 DIANN alvino [facility] 2021-04-28 2021-04-28 Office [facility] 1.2.512.170 [id number] Univers 13:00:00 14:03:10 Visit Diann [place] 350.1.13.10 i ty [facility] 4.2.7.2.[place] [facility] [id number] Ms dical [facility] 188 [facility] 2021-04-22 2021-04-22 Outpatient MITCHELL TORRES [facility] [id number] Univers 15:40:00 15:40:00 MITCHELL GARCIA kelsie [facility] 2021-04-22 2021-04-22 Outpatient Moustapha JOSE, MITCHELL [facility] [id number] Univers 15:40:00 15:40:00 MITCHELL GARCIA [facility] 2021-04-22 2021-04-22 Outpatient Moustapha JOSEMITCHELL Rock [facility] [id number] Univers 15:40:00 15:40:00 MITCHELL GARCIA [facility] 2021-04-18 2021-04-19 Emergency [facility] [id number] Univers 22:42:00 02:27:00 FOLUSHO ity [facility] 2021-04-18 2021-04-19 Emergency [facility] 1.2.840.114 [id number] Univers 22:42:00 02:27:00 Celia [place] 350.1.13.10 ity [facility] 4.2.7.2.686 [place] [id number] [facility] [address] [place] 2021-04-18 2021-04-19 Emergency [facility] [id number] Univers 22:42:00 02:27:00 FOLUSHO ity [facility] 2021-04-18 2021-04-18 Orders Doctor YANA 1.2.840.114 [id number] Univers 00:00:00 00:00:00 Only Unassigned, CARLOS 350.1.13.10 ity of [place] [facility] 4.2.7.2.686 Bernabe as [phone] [facility] 009 Branch 2021-04-15 2021-04-15 [facility] 1.2.549.518 [id number] Univers 12:42:22 23:59:00 Encounter Clare [place] 350.1.13.10 ity of [facility] 4.2.7.2.686 [place] ANTIGO [id number] [facility] 800 Branch 2021-04-15 2021-04-15 Outpatient R KUMAR [facility] [id number] Univers 10:00:00 10:33:44 SRIRAM ity o f [facility] 2021-04-15 2021-04-15 Office [facility] 1.2.840.114 [id number] Univers 10:00:00 10:33:44 Visit [facility]iram [facility] 350.1.13.10 ity of [facility] 4.2.7.2.686 [place] [facility] [id number] Ms dical NAL 059 [facility] 2021-04-15 2021-04-15 Outpatient R KUMAR [facility] [id number] Univers 10:00:00 10:33:44 SRIRAM ity o [facility] 2021-04-15 2021-04-15 Outpatient R MAJOR [facility] [id number] Univers 00:00:00 00:00:00 WONDIFUL ity o f [facility] 2021-04-15 2021-04-15 Orders Doctor YANA 1.2.840.114 [id number] Univers 00:00:00 00:00:00 Only Unassigned, CARLOS 350.1.13.10 ity of [place] [facility] 4.2.7.2.686 Bernabe as [phone] [facility] [address] [place] 2021-04-13 2021-04-13 Outpatient R TIN [facility] [id number] Univers 10:00:00 11:12:56 WENTONG ity of [facility] 2021-04-13 2021-04-13 Office [facility] 1.2.840.114 [id number] Univers 10:00:00 11:12:56 [facility] 350.1.13.10 it y of [place] 4.2.7.2.686 Bernabe as HUMPHREY?BLEA [id number] Ms dical KNEY [address] [place] MEDICAL OFFICE BUILDING 2021-04-13 2021-04-13 Outpatient R TIN [facility] [id number] Univers 10:00:00 11:12:56 [facility] 2021-04-13 2021-04-13 Outpatient R TIN [facility] [id number] Univers 10:00:00 10:00:00 WENTONG ity [facility] 2021-04-13 2021-04-13 Outpatient R TIN [facility] [id number] Univers 10:00:00 10:00:00 WENTONG ity [facility] 2021-04-13 2021-04-13 Outpatient R TIN [facility] [id number] Univers 10:00:00 10:00:00 WENTONG ity [facility] 2021-04-12 2021-04-12 Nurse YANA Sanders [id number] [id number] Univers 00:00:00 00:00:00 Triage Luis Alberto RENEE 350.1.13.10 it y of [facility] 4.2.7.2.686 Bernabe as [phone] [address] 2021-04-07 2021-04-07 Telephone [facility] 1.2.511.208 [id number] Univers 00:00:00 00:00:00 Sriram [place] 350.1.13.10 ity of [place].2.7.2.[place] [id number] Ms dical NAL [address] [place] [address] 2021-04-01 2021-04-01 [facility] [id number] Univers 10:00:00 10:40:52 SILVERIO ity [facility] 2021-04-01 2021-04-01 Office [facility] 1.2.840.114 [id number] Univers 10:00:00 10:40:52 Visit Silverio [place] 350.1.13.10 i ty of [place] 4.2.7.2.686 [place] PROF[place] [id number] Ms dical NAL [address] [place] [address] 2021-03-30 2021-03-30 [facility]phone [facility] 1.2.840.114 [id number] Univers 00:00:00 00:00:00 [facility] 350.1.13.10 ity of [place] 4.2.7.2.686 Bernabe as HUMPHREY?BLEA [id number] Ms sherif HOLLAND [address] [place] [address] 2021-03-30 2021-03-30 Telephone Jose [facility] 1.2.840.114 [id number] Univers 00:00:00 00:00:00 [facility] 350.1.13.10 ity of [place] 4.2.7.2.686 Bernabe as HUMPHREY?BLEA [id number] Ms sherif HOLLAND [address] [place] [address] 2021-03-29 2021-03-29 Outpatient MITCHELL TORRES [facility] [id number] Univers 08:00:00 09:38:08 MITCHELL GARCIA [facility] 2021-03-29 2021-03-29 Outpatient MITCHELL TORRES [facility] [id number] Univers 08:00:00 09:38:08 MITCHELL GARCIA [facility] 2021-03-29 2021-03-29 Outpatient MITCHELL TORRES [facility] [id number] Univers 08:00:00 08:00:00 MITCHELL GARCIA [facility] 2021-03-29 2021-03-29 Orders Doctor YANA 1.2.840.114 [id number] Univers 00:00:00 00:00:00 Only Unassigned, CARLOS 350.1.13.10 [facility] [facility] 4.2.7.2.686 Bernabe as [phone] [address] 2021-03-23 2021-03-23 Outpatient Moustapha HEATH [facility] [id number] Univers 15:40:00 16:06:08 SRIRAM de oliveira o f [facility] 2021-03-23 2021-03-23 Office [facility] 1.2.840.114 [id number] Univers 15:40:00 16:06:08 Visit Sriram [place] 350.1.13.10 ity [facility] 4.2.7.2.686 [place] ANIL [id number] Ms sherif ANDERSON 059 [facility] 2021-03-23 2021-03-23 Outpatient Moustapha HEATH [facility] [id number] Univers 16:00:00 16:00:00 SRIRAM alvino o f [facility] 2021-03-22 2021-03-22 Telephone Brooks [facility] 1.2.840.114 [id number] Univers 00:00:00 00:00:00 Diann DEWEY 350.1.13.10 i ty of [place] 4.2.7.2.686 [place] PROF[place] [id number] Ms dical NAL 188 [facility] 2021-03-21 2021-03-21 Continuous Process Coffee Roaster [place], Adc Lab Main [facility] 1.2.8 40.114 [id number] Univers 14:45:00 15:00:00 [facility] 350.1 .13.10 ity of [place] 4.2.7.2.[place] [id number] Ms dical NAL 353 [facility] 2021-03-21 2021-03-21 Outpatient R [facility] [id number] Univers 14:45:00 14:45:00 [facility] 2021-03-21 2021-03-21 Outpatient R [facility] [id number] Univers 14:45:00 14:45:00 [facility] 2021-03-21 2021-03-21 Orders Doctor MILLAN 1.2.840.114 [id number] Univers 00:00:00 00:00:00 Only Unassigned, CRALOS 350.1.13.10 ity of [place] [facility] 4.2.7.2.686 Bernabe as [phone] [facility] [address] [place] 2021-03-21 2021-03-21 Telephone JonathanrussellGLENNA 1.2.840.114 [id number] Univers 00:00:00 00:00:00 [facility] [id number] i ty of [facility] [id number] [phone] [facility] [address] [place] 2021-03-20 2021-03-20 Nurse YANA Bautista 1.2.840.114 [id number] Univers 00:00:00 00:00:00 Triage Cielo CARLOS [id number] it y of HOSPITAL [id number] Bernabe as [phone] [facility] [address] 2021-03-18 2021-03-18 Emergency [facility] 1.2.840.114 [id number] Univers 17:02:00 22:45:00 Ananya PALOMO [id number] ity of [place] [id number] [facility] [address] 2021-03-18 2021-03-18 Emergency X [facility] ERT [id number] Univers 17:02:00 17:02:00 ANANYA itkelsie [facility] 2021-03-18 2021-03-18 Emergency X [facility] ERT [id number] Univers 16:34:00 16:34:00 ity [facility] 2021-03-18 2021-03-18 Outpatient R EPI [facility] [id number] Univers 15:00:00 16:15:48 JENNIE martykelsie [facility] 2021-03-18 2021-03-18 [facility] 1.2.840.114 [id number] Univers 15:00:00 16:15:48 Visit Jennie [facility] 350.1.13.10 it y of [place] 4.2.7.2.686 Bernabe as HUMPHREY?BLEA [phone] [address] MEDICAL OFFICE [facility]ILDING 2021-03-18 2021-03-18 [facility] [id number] Univers 15:00:00 16:15:48 JENNIE martykelsie [facility] 2021-03-18 2021-03-18 [facility] [id number] Univers 15:00:00 16:15:48 JENNIE martykelsie [facility] 2021-03-18 2021-03-18 Transition JONO Galvan 1.2.840.114 [id number] Univers 00:00:00 00:00:00 of Care Nara MG 350.1.13.10 it [place] [id number] [facility] 403 Branch 2021-03-122021-03-17 Inpatient X [facility] [id number] Univers 12:11:00 15:43:00 ALED ity [facility] 2021-03-12 2021-03-17 Hospital Bethel Damien MCKINNON 1.2.840 .114 [id number] Univers 12:11:00 15:43:00 Encounter Soni Hunter CARLOS 350.1.13.10 ity of [facility] 4.2.7.2.686 [place] [id number] [facility] 089 Branch 2021-03-12 2021-03-17 Inpatient X [facility] [id number] Univers 12:11:00 15:43:00 [facility] ity [facility] 2021-03-17 2021-03-17 Nurse Esperanza Cronin 1.2.840.114 [id number] Univers 00:00:00 00:00:00 Triage CARLOS 350.1.13.10 it y of [facility] 4.2.7.2.686 Bernabe as [phone] [facility] 019 Branch 2021-03-16 2021-03-16 Case Jonathanrussell, UNIVERSIT 1.2.840.114 [id number] Univers 00:00:00 00:00:00 Management Wissam Y HEALTH 350.1.13.10 ity of [place] [facility] [place] [phone] [facility] 414 [address] 2021-03-16 2021-03-16 Case Jonathanrussell, UNIVERSIT 1.2.840.114 [id number] Univers 00:00:00 00:00:00 Management Wissam Y HEALTH 350.1.13.10 ity of [place] [facility] [id number] [facility] [address] 2021-03-11 2021-03-11 Transition JONO Galvan 1.2.840.114 [id number] Univers 00:00:00 00:00:00 of Care Nara B MG 350.1.13.10 [place] [id number] [facility] [address] 2021-03-11 2021-03-11 Telephone [facility] 1.2.282.140 [id number] Univers 00:00:00 00:00:00 Sriram PALOMO 350.1.13.10 ity of [place] PROF[place] [phone] Ms dical NAL 059 [facility] 2021-03-07 2021-03-10 Outpatient X ANUJ GONZAELS [facility] SAMI [id number] Univers 08:28:00 14:20:00 ity of [facility] 2021-03-07 2021-03-10 Emergency WolfeHudson 1.2.840. 114 [id number] Univers 08:28:00 14:20:00 Anuj Gonzales CARLOS 350.1.13.1 0 ity of [facility] 4.2.7.2.686 Bernabe as [phone] [facility] 100 Branch 2021-03-07 2021-03-10 Outpatient X ANUJ GONZALES [facility] SAMI [id number] Univers 08:28:00 14:20:00 ity of [facility] 2021-03-09 2021-03-09 Surgery Misael Castro [facility] 1.2.840.114 [id number] Univers 09:36:00 10:16:00 Johnysharonda ABBASI 350.1.13.10 it y of SCIENCES 4.2.7.2.686 Bernabe as BLDG [id number] [facility] 020 Branch 2021-03-03 2021-03-03 Outpatient R HEMANTH [facility] [id number] Univers 14:00:00 14:44:31 SHANTEL ity of [facility] 2021-03-03 2021-03-03 Office [facility] 1.2.840.114 [id number] Univers 14:00:00 14:44:31 Visit Shantel PAL[place] 350.1.13.10 ity [facility] 4.2.7.2.[place] [phone] Ms dical NAL 188 [facility] 2021-03-03 2021-03-03 [facility] [id number] Univers 14:00:00 14:00:00 DIANN itkelsie [facility] 2021-02-08 2021-02-08 Office Sabina Barba [facility] 1.2.840.114 [id number] Univers 15:30:00 16:44:10 Visit KHLOE 350.1.13.10 it y of [place] [phone] [address] 2021-02-08 2021-02-08 Outpatient R SABINA BARBA [facility] [id number] Univers 15:30:00 16:44:10 ity [facility] 2021-02-08 2021-02-08 Outpatient R GONSALO SABINA [facility] [id number] Univers 15:30:00 [facility]:44:[facility] 2021-02-08 2021-02-08 Outpatient R SABINA BARBA [facility] [id number] Univers 15:30:00 15:30:[facility] 2021-02-08 2021-02-08 Outpatient R SABINA BARBA [facility] [id number] Univers 15:30:00 15:30:00 [facility] 2021-02-03 2021-02-03 Case [facility] 1.2.840.114 [id number] Univers 00:00:00 00:00:00 Management Wondiful A HEALTH 350.1.13.10 ity of [place] 4.2.7.2.686 Bernabe as HUMPHREY?BLEA [phone] Ms jamilahelinor TEREZAKELSI [address] [place] MEDICAL OFFICE BUILDING 2021-02-01 2021-02-01 Office [facility] 1.2.840.114 [id number] Univers 15:30:00 16:58:42 Visit Ericka HEALTH 350.1.13.10 it y of [place] 4.2.7.2.686 Bernabe as HUMPHREY?BLEA [phone] Ms jamilahelinor TEREZA [address] [place] MEDICAL OFFICE BUILDING 2021-02-01 2021-02-01 Outpatient R [facility] [id number] Univers 15:30:00 16:58:42 ERICKA ity [facility] 2021-02-01 2021-02-01 Outpatient R MEKA [facility] [id number] Univers 16:30:00 16:30:00 ERICKA [facility] 2021-02-01 2021-02-01 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, 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 - Db [facility] 1.2.840.1 14 [id number] Univers 16:02:42 16:17:42 Visit Ericka Ackerman [facility] 350.1.13.10 ity of [place] 4.2.7.2.686 Bernabe as HUMPHREY?BLEA [phone] [address] MEDICAL OFFICE [facility] 2021-02-01 2021-02-01 Outpatient R MEKA [facility] [id number] Univers 15:30:00 15:30:00 [facility] 2021-01-31 2021-01-31 Outpatient R [facility] [id number] Univers 13:40:00 13:44:29 SRIRAM de oliveira [facility] 2021-01-31 2021-01-31 Outpatient R [facility] [id number] Univers 13:40:00 13:44:29 [facility] 2021-01-31 2021-01-31 Office [facility] 1.2.840.114 [id number] Univers 13:18:52 13:44:29 Visit Sriram [place] 350.1.13.10 ity [facility] 4.2.7.2.[place] [phone] Ms dical NAL 059 [facility] 2021-01-31 2021-01-31 Outpatient R [facility] [id number] Univers 13:40:00 13:40:00 SRIRAM de oliveira o [facility] 2021-01-31 2021-01-31 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 OFFICE [facility] 2021-01-31 2021-01-31 Outpatient R [facility] [id number] Univers 09:30:00 09:30:00 WONDIFUL ity o f [facility] 2021-01-11 2021-01-11 [facility] 1.2.840.114 [id number] Univers 00:00:00 00:00:00 Management Wondiful A HEALTH 350.1.13.10 ity of [place] 4.2.7.2.686 Bernabe as HUMPHREY?BLEA [phone] Ms sherif HOLLAND [address] 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 OFFICE [facility] 2021-01-07 2021-01-07 Outpatient R [facility] [id number] Univers 16:15:00 16:37:00 WONDIFUL ity o f [facility] 2021-01-07 2021-01-07 Office [facility] 1.2.840.114 [id number] Univers 15:34:25 16:37:00 Visit Wondiful A HEALTH 350.1.13.10 ity of [place] 4.2.7.2.686 Bernabe as HUMPHREY?BLEA [phone] [address] MEDICAL OFFICE [facility] 2021-01-05 2021-01-05 Telephone [facility] 1.2.840.114 [id number] Univers 00:00:00 00:00:00 Wondiful A HEALTH 350.1.13.10 ity of [place] 4.2.7.2.686 Bernabe as HUMPHREY?BLEA [phone] [address] 2020-12-28 2020-12-28 Outpatient R [facility] [id number] Univers 14:00:00 14:00:00 SILVERIO ity of [facility] 2020-12-27 2020-12-27 Outpatient R [facility] [id number] Univers 13:14:51 23:59:00 WONDIFUL ity o f [facility] 2020-12-27 2020-12-27 [facility] 1.2.710.116 [id number] Univers 13:00:00 23:59:00 Encounter Wondiful A [place] 350.1.13.10 ity of [place] 4.2.7.2.686 [place] [facility] [phone] [address] 2020-12-27 2020-12-27 Outpatient R [facility] [id number] Univers 00:00:00 00:00:00 WONDIFUL ity o f [facility] 2020-12-13 2020-12-13 Telephone [facility] 1.2.840.114 [id number] Univers 00:00:00 00:00:00 Wondiful A Health 350.1.13.10 ity of [place] 4.2.7.2.686 Bernabe as Humphrey?Blea [phone] Me [address] Office [facility] 2020-12-13 2020-12-13 Telephone Major [facility] 1.2.840.114 [id number] Univers 00:00:00 00:00:00 Wondiful A Health 350.1.13.10 ity of [place] 4.2.7.2.686 Bernabe as Humphrey?Blea [phone] [address] Office [facility] 2020-12-06 2020-12-06 Telephone Major [facility] 1.2.840.114 [id number] Univers 00:00:00 00:00:00 Wondiful A Health 350.1.13.10 ity of [place] 4.2.7.2.686 Bernabe as Humphrey?Blea [phone] [address] Office [facility] 2020-12-03 2020-12-03 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, Ang - Db [facility] 1.2.840.1 14 [id number] [facility] 16:48:38 17:03:11 Visit Clare Gonsalves Health 350.1.13.1 0 ity of [place] 4.2.7.2.686 Bernabe as Humphrey?Blea [phone] [address] Office [facility] 2020-12-03 2020-12-03 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, Ang - Db [facility] 1.2.840.1 14 [id number] Univers 16:48:38 17:03:11 Visit Clare Gonsalves A Health 350.1.13.1 0 ity of [place] 4.2.7.2.686 Bernabe as Humphrey?Blea [id number] [address] Office [facility] 2020-12-03 2020-12-03 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, Ang - Db [facility] 1.2.840.1 14 [id number] [facility] 16:48:38 17:03:11 Visit Clare Gonsalves A HEALTH 350.1.13.1 0 ity of [place] 4.2.7.2.686 Bernabe as HUMPHREY?BLEA [id number] [address] OFFICE [facility] 2020-12-03 2020-12-03 Office Major [facility] 1.2.840.114 [id number] Univers 15:32:14 16:49:03 Visit Wondiful A Health 350.1.13.10 ity of [place] 4.2.7.2.686 Bernabe as Humphrey?Blea [phone] Ms sherif kney 044 [facility] 2020-12-03 2020-12-03 Outpatient R MAJOR [facility] [id number] [facility] 15:45:00 15:45:00 WONDIFUL ity o f [facility] 2020-11-23 2020-11-23 [facility] 1.2.840.114 [id number] [facility] 09:49:05 10:43:01 Visit Silverio [place] 350.1.13.10 i ty of [place].2.7.2.[place] Profess[place] [phone] [address] 2020-11-23 2020-11-23 Outpatient R [facility] [id number] Univers 10:00:00 10:00:00 SILVERIO ity of [facility] 2020-11-15 2020-11-15 [facility] 1.2.840.114 [id number] Univers 00:00:00 00:00:00 Qiachaim [place] 350.1.13.10 ity of [place] 4.2.7.2.[place] Profess[place] [phone] [address] 2020-11-15 2020-11-15 Refis[facility] 1.2.840.114 [id number] Univers 00:00:00 00:00:00 Wondiful A [place] 350.1.13.10 ity of [place] 4.2.7.2.686 [place] [phone] [facility] nal [address] [place] [address] 2020-11-11 2020-11-11 [facility] 1.2.840.114 [id number] Univers 00:00:00 00:00:00 Wondiful A Health 350.1.13.10 ity of [place] 4.2.7.2.686 Bernabe as Professio [phone] [place] [address] [facility] 2020-10-05 2020-10-05 Cali [facility] 1.2.840.114 [id number] Univers 00:00:00 00:00:00 Wondiful A Health 350.1.13.10 ity of [place] 4.2.7.2.686 Bernabe as Professio [phone] [address] 2020-10-04 2020-10-04 Orders Doctor YANA 1.2.840.114 [id number] Univers 00:00:00 00:00:00 Only Unassigned, CARLOS 350.1.13.10 ity of [place] [facility] 4.2.7.2.686 Bernabe as [id number] [address] 2020-09-24 2020-09-24 [facility] 1.2.840.114 [id number] Univers 00:00:00 00:00:00 Wondiful A Health 350.1.13.10 ity of [place] 4.2.7.2.686 Bernabe as Professio [phone] [facility] 044 [facility] 2020-09-09 2020-09-09 Cali [facility] 1.2.840.114 [id number] Univers 00:00:00 00:00:00 Qiangjun [place] 350.1.13.10 ity of [place].2.[place].2.[place] [phone] [facility] 059 [facility] 2020-09-03 2020-09-03 Cali [facility] 1.2.840.114 [id number] Univers 00:00:00 00:00:00 Wondiful A Health 350.1.13.10 ity of [place] 4.2.7.2.686 Bernabe as Professio [phone] [address] 2020-07-27 2020-07-27 Outpatient R KIA [facility] [id number] Univers 10:20:00 10:20:00 SILVERIO ity of [facility] 2020-07-27 2020-07-27 Office Kia [facility] 1.2.840.114 [id number] Univers 09:56:55 10:16:55 Visit Silverio [place] 350.1.13.10 i ty of [place] 4.2.7.2.686 [place] [phone] Ms dical nal 059 [facility] 2020-07-13 2020-07-13 Orders Doctor YANA 1.2.840.114 [id number] Univers 00:00:00 00:00:00 Only Unassigned, CARLOS 350.1.13.10 ity of [place] [facility] 4.2.7.2.686 Bernabe as [phone] [address] 2020-07-08 2020-07-08 Refill [facility] 1.2.840.114 [id number] Univers 00:00:00 00:00:00 Wondiful A Health 350.1.13.10 ity of [place] 4.2.7.2.686 Bernabe as Professio [phone] [facility] 044 [facility] 2020-06-29 2020-06-29 Outpatient R [facility] [id number] Univers 10:30:00 10:30:00 ity of [facility] 2020-06-29 2020-06-29 Outpatient [facility] [id number] Univers 10:30:00 10:30:00 SILVERIO ity [facility] 2020-06-07 2020-06-07 Office [facility] 1.2.840.114 [id number] Univers 13:02:14 13:29:23 Visit Guillelisazechariah [place] 350.1.13.10 ity of [place] 4.2.7.2.686 [place] Profess[place] [phone] Ms dical nal 059 [facility] 2020-06-07 2020-06-07 Outpatient R [facility] [id number] Univers 13:00:00 13:00:00 SRIRAM diamond f [facility] 2020-06-02 2020-06-02 Outpatient R DEE [facility] [id number] Univers 19:20:00 19:20:00 VIRI diamond f [facility] 2020-06-02 2020-06-02 Laboratory Lab, Adc Fam Pob I [facility] 1.2. 840.114 [id number] Univers 18:38:28 18:58:28 Only JoseKarla [facility] 350.1.13.10 ity of [place] 4.2.7.2.686 [facility] [phone] Ms dic[address] Office Building One 2020-06-02 2020-06-02 Letter Doctor YANA 1.2.840.114 [id number] Univers 00:00:00 00:00:00 (Out) Unassigned, CARLOS 350.1.13.10 ity of [place] [facility]OSPITAL 4.2.7.2.686 Bernabe as [phone] [address] 2020-06-02 2020-06-02 Letter Doctor YANA 1.2.840.114 [id number] Univers 00:00:00 00:00:00 (Out) Unassigned, CARLOS 350.1.13.10 ity of [place] HOSPITAL 4.2.7.2.686 Bernabe as [phone] [address] 2020-06-02 2020-06-02 Letter Doctor MILLAN 1.2.840.114 [id number] Univers 00:00:00 00:00:00 (Out) Unassigned, CARLOS 350.1.13.10 ity of [place] HOSPITAL 4.2.7.2.686 Bernabe as [phone] [address] 2020-06-02 2020-06-02 Letter Doctor MILLAN 1.2.840.114 [id number] Univers 00:00:00 00:00:00 (Out) Unassigned, CARLOS 350.1.13.10 ity of [place] HOSPITAL 4.2.7.2.686 Bernabe as [phone] [address] 2020-05-20 2020-05-20 Telephone YANA Samano 1Karen2.871.879 [id number] Univers 00:00:00 00:00:00 Teri RENEE 350.1.13.10 ity of HOSPITAL 4.2.7.2.686 Bernabe as [phone] [place] [address] [place] 2020-05-20 2020-05-20 Telephone YANA Samano 1.2.088.403 [id number] 00:00:00 00:00:00 Teri RENEE 350.1.13.10 [facility] 4.2.7.2.686 [id number] 08 2020-04-28 2020-04-28 Refill [facility] 1.2.840.114 [id number] Univers 00:00:00 00:00:00 Silverio [place] 350.1.13.10 i ty of [place] 4.2.7.2.686 [place] [phone] [address] 2020-04-27 2020-04-27 Office [facility] 1.2.840.114 [id number] Univers 11:25:29 11:45:29 Visit Silverio [place] 350.1.13.10 i ty of [address] Profess[place] [phone] [address] 2020-04-27 2020-04-27 Outpatient [facility] [id number] Univers 11:40:00 11:40:00 SILVERIO ity [facility] 2020-04-26 2020-04-26 Outpatient R [facility] [id number] Univers 10:20:00 10:20:00 ERICH ity [facility] 2020-04-14 2020-04-14 [facility] 1.2.316.855 [id number] Univers 09:18:24 23:59:00 Encounter Wondiful Lauryn [place] 350.1.13.10 [place] of [place] 4.2.7.2.686 [place] [phone] [facility] [address] [place] 2020-04-14 2020-04-14 Outpatient R [facility] [id number] Univers 00:00:00 00:00:00 WONDIFUL ity o f [facility] 2020-03-31 2020-03-31 Continuous Process Coffee Roaster [place], Adc Lab Main [facility] 1.2.8 40.114 [id number] Univers 09:18:24 09:33:24 Visit Noah Gonsalvesjoshua Lauryn [place] 350.1.13. 10 ity of [place] 4.2.7.2.686 [place] [phone] Me dical nal [address] [facility] 2020-03-31 2020-03-31 Outpatient R MAJOR [facility] [id number] Univers 09:15:00 09:15:00 WONDIFUL ity o f [facility] 2020-03-30 2020-03-30 Laboratory Pacemaker/Icd, [facility] 1.2. 840.114 [id number] Univers 12:51:02 13:15:05 Only Silverio Adam 350.1.13.10 ity of [place] 4.2.7.2.686 [place] [phone] Ms dical nal 059 [facility] 2020-03-30 2020-03-30 Outpatient R [facility] [id number] Univers 13:00:00 13:00:00 ity of [facility] 2020-03-29 2020-03-29 Office [facility] 1.2.840.114 [id number] Univers 15:15:24 16:12:41 [facility] Lauryn [facility] 350.1.13.10 ity of [place] 4.2.7.2.686 Bernabe as Professio [phone] Ms dical nal [address] [place] Office [address] [facility] 2020-03-29 2020-03-29 Outpatient R MAJOR [facility] [id number] Univers 15:30:00 15:30:00 WONDIFUL ity o f [facility] 2020-03-03 2020-03-03 Orders Doctor MILLAN 1.2.840.114 [id number] Univers 00:00:00 00:00:00 Only Unassigned, CARLOS 350.1.13.10 [facility] 4.2.7.2.686 Bernabe as [phone] [address] 2020-02-03 2020-02-03 Outpatient R KUMAR [facility] [id number] Univers 14:20:00 14:20:00 DIMITRIJUN ity o f [facility] 2020-02-03 2020-02-03 Office [facility] 1.2.840.114 [id number] Univers 13:38:09 14:13:45 Visit Guillechaim Pal[place] 350.1.13.10 ity of [place] 4.2.7.2.686 [place] [phone] [address] 2020-01-27 2020-01-27 Office [facility] 1.2.840.114 [id number] Univers 10:58:57 11:32:49 Visit Silverio De[place] 350.1.13.10 i ty of [place] 4.2.7.2.686 [place] [phone] [address] 2020-01-27 2020-01-27 Outpatient R [facility] [id number] Univers 11:00:00 11:00:00 SILVERIO ity of [facility] 2020-01-20 2020-01-20 Orders Doctor YANA 1.2.840.114 [id number] Univers 00:00:00 00:00:00 Only Unassigned, CARLOS 350.1.13.10 ity of [place] [facility] 4.2.7.2.686 Bernabe as [phone] [address] 2020-01-20 2020-01-20 Telephone [facility] 1.2.540.632 [id number] Univers 00:00:00 00:00:00 Sriram [place] 350.1.13.10 ity of [place] 4.2.7.2.686 [place] Profess[place] [phone] [address] 2020-01-20 2020-01-20 Refill [facility] 1.2.840.114 [id number] Univers 00:00:00 00:00:00 Sriram [place] 350.1.13.10 ity of [place] 4.2.7.2.686 [place] [phone] [address] 2020-01-14 2020-01-14 Orders Doctor YANA 1.2.840.114 [id number] Univers 00:00:00 00:00:00 Only Unassigned, CARLOS 350.1.13.10 ity of [place] HOSPITAL 4.2.7.2.686 Bernabe as [phone] [address] 2020-01-12 2020-01-12 Outpatient R KUMAR, [facility] [id number] Univers 10:00:00 10:00:00 DIMITRIZECHARIAH alvino o f [facility] 2020-01-05 2020-01-05 Continuous Process Coffee Roaster 2, Adc Lab [facility] 1.2.840.114 [id number] Univers 15:31:18 15:46:18 Visit Omkrystle, Min [place] 350.1.1 3.10 ity of [place] 4.2.7.2.686 [place] [phone] Ms dical nal [address] [facility] 2020-01-05 2020-01-05 Office [facility] 1.2.840.114 [id number] Univers 14:39:45 15:28:14 Visit Minorlando Palomo 350.1.13.10 i ty of [place] 4[place]7.2.[place] [phone] Ms dical nal [address] [facility] 2020-01-05 2020-01-05 Outpatient R FREDDY, [facility] [id number] Univers 14:45:00 14:45:00 MIN ity of [facility] 2020-01-05 2020-01-05 Orders Doctor MILLAN 1.2.840.114 [id number] Univers 00:00:00 00:00:00 Only Unassigned, CARLOS 350.1.13.10 ity of [facility] 4.2.7.2.686 Bernabe as [phone] [address] 2020-01-01 2020-01-01 Telephone Kumar, [facility] [id number] Univers 00:00:00 00:00:00 Guillelisazechariah Palomo 350.1.13.10 [place]y [place] [phone] Ms dical nal 0[address] [facility] 2019-12-19 2019-12-19 [facility] 1.2.840.114 [id number] Univers 11:30:41 12:16:36 Visit Nita Palomo 350.1.13.10 i [place] 4[place]2.7.2.[place] [phone] Ms dical nal 0[address] [facility] 2019-12-19 2019-12-19 Outpatient R [place] [facility] 10 [id number] Univers 11:40:00 11:40:00 NITA DEGROOT i ty of [facility] 2019-12-19 2019-12-19 Telephone [facility] [id number] Univers 00:00:00 00:00:00 Sriram Palomo 350.1.13.10 [place].2.[place] [phone] [facility] nal [address] [facility] 2019-12-18 2019-12-18 Orders Doctor YANA 1.2.840.114 [id number] Univers 00:00:00 00:00:00 Only Unassigned, CARLOS 350.1.13.[address] [facility] 4.2.7.2.686 Bernabe as [phone] [address] 2019-12-16 2019-12-16 Office [facility] 1.2.840.114 [id number] Univers 08:53:47 09:13:47 Visit Silverio Palomo 350.1.13.10 i [place] [phone] [facility] nal [address] [facility] 2019-12-16 2019-12-16 [facility] [id number] Univers 09:00:00 09:00:00 SILVERIO ity of [facility] 2019-12-15 2019-12-15 Telephone [place] [facility] 1.2.840.114 [id number] Univers 00:00:00 00:00:00 Wondiful A Health 350.1.13.10 ity of [place] 4.2.7.2.686 Bernabe as Professio [phone] [facility] nal [address] [place] Office [facility] One 2019-12-15 2019-12-15 [facility] 1.2.840.114 [id number] Univers 00:00:00 00:00:00 Management Wondiful A Health 350.1.13.10 ity of [place] 4.2.7.2.686 Bernabe as Professio [phone] Ms dical [facility] [address] [place] Office [facility] 2019-12-10 2019-12-10 Orders Doctor YANA 1.2.840.114 [id number] Univers 00:00:00 00:00:00 Only Unassigned, CARLOS 350.1.13.10 ity of [place] [facility] 4.2.7.2.686 Bernabe as [phone] [address] 2019-12-09 2019-12-09 Urgent Provider, [facility] 1.2.840.114 [id number] Univers 14:46:41 15:59:38 Care Anny [facility] 350.1.13.10 ity of [place] 4.2.7.2.686 Bernabe as Professio [phone] [address] Office [facility] 2019-12-09 2019-12-09 Outpatient R ANNY [facility] [id number] Univers 15:00:00 15:00:00 MONICA ity of [facility] 2019-12-04 2019-12-04 Office Major [facility] 1.2.840.114 [id number] Univers 12:39:51 13:39:11 Visit Wonjoshua A Health 350.1.13.10 ity of [place] 4.2.7.2.686 Bernabe as Professio [phone] [address] Office [facility] 2019-12-04 2019-12-04 Outpatient R MAJOR [facility] [id number] Univers 13:00:00 13:00:00 WONDIFUL ity o f [facility] 2019-12-02 2019-12-02 Laboratory Pacemaker/Icd, [facility] 1.2. 840.114 [id number] Univers 10:50:24 11:27:03 Only Sriram Heath [place] 350.1.13.10 ity of [place].2.7.2.[place] [phone] [facility] [address] [facility] 2019-12-02 2019-12-02 Outpatient R [facility] [id number] Univers 11:00:00 11:00:00 ity of [facility] 2019-12-02 2019-12-02 Telephone [facility] 1.2.840.114 [id number] Univers 00:00:00 00:00:00 Wondiful A Health 350.1.13.10 ity of [place] 4.2.7.2.686 Bernabe as Professio [phone] Ms dical nal [address] [place] [address] Building One 2019-12-01 2019-12-01 Office [facility] 1.2.840.114 [id number] Univers 15:16:46 16:01:04 Visit Sriram Palomo 350.1.13.10 it[place] of [place].7.[place] [phone] Ms dical nal [address] [facility] 2019-12-01 2019-12-01 Outpatient R [facility] [id number] Univers 15:40:00 15:40:00 SRIRAM martyy o f [facility] 2019-12-01 2019-12-01 Transition Jono Mccurdy 1.2.840.114 [id number] Univers 00:00:00 00:00:00 of Care Jo Mg 350.1.13.10 i ty of [place] 4.2.7.2.[place] [phone] [facility] [address] 2019-11-26 2019-11-28 Hospital Kirt Thomason [facility] .2.840.1 14 [id number] Univers 14:42:00 15:06:00 Encounter Gab Servin 350.1.13.10 ity of [place].2.[place] [phone] [facility] [address] 2019-11-26 2019-11-28 Inpatient X GAB SERVIN [facility] SAMI [id number] Univers 14:42:00 15:06:00 ity of [facility] 2019-11-26 2019-11-26 Telephone [facility] 1.2.840.114 [id number] Univers 00:00:00 00:00:00 Wondiful A Health 350.1.13.10 ity of [place] 4.2.7.2.686 Bernabe as Professio [phone] Ms dical nal [address] [place] [address] Building [facility] 2019-11-24 2019-11-24 Telemedici [facility] 1.2.840.114 [id number] Univers 12:42:21 16:15:48 ne Visit Wondiful A Health 350.1.13.10 ity of [place] 4.2.7.2.686 Bernabe as Professio [phone] Ms dicmo nal [address] [place] [address] Building One 2019-11-24 2019-11-24 [facility] [id number] Univers 15:30:00 15:30:00 WONDIFUL ity o f [facility] 2019-11-24 2019-11-24 Transition Jono Henry 1.2.840.114 [id number] Univers 00:00:00 00:00:00 of Care Cielo Mg 350.1.13.10 it y of [place] 4.2.7.2.[place] [phone] [facility] [address] [place] 2019-11-24 2019-11-24 Orders Doctor YANA 1.2.840.114 [id number] Univers 00:00:00 00:00:00 Only Unassigned, CARLOS 350.1.13.10 ity of [place] [facility] 4.2.7.2.686 Bernabe as [phone] [facility] [address] 2019-11-21 2019-11-21 Transition Jono Henry 1.2.840.114 [id number] Univers 00:00:00 00:00:00 of Care Cielo Mg 350.1.13.10 it y of [place] 4.2.7.2.[place] [phone] [facility] [address] [place] 2019-11-08 2019-11-20 [facility] Fam Craig 1.2.840.114 [id number] Univers 18:18:00 16:52:00 Encounter Argenis Barnett Carlos 350.1.13.1 0 ity of [facility] 4.2.7.2 .686 [place] [phone] [address] 2019-11-08 2019-11-20 Inpatient U LEONARD, [facility] [id number] Univers 18:18:00 16:52:00 AHMED ity [facility] 2019-11-20 2019-11-20 [facility] 1.2.840.114 [id number] Univers 00:00:00 00:00:00 Wondiful A Health 350.1.13.10 ity of [place] 4.2.7.2.686 Bernabe as Professio [phone] [address] 2019-11-19 2019-11-19 Outpatient [facility] [id number] Univers 14:30:00 14:30:00 WENTONG [facility] 2019-11-19 2019-11-19 [facility] 1.2.840.114 [id number] Univers 00:00:00 00:00:00 Wondiful A Health 350.1.13.10 ity of [place] 4.2.7.2.686 Bernabe as Professio [phone] [address] 2019-11-17 2019-11-17 Outpatient R [facility] [id number] Univers 08:00:00 08:00:00 SILVERIO ity [facility] 2019-11-14 2019-11-14 Outpatient R [facility] [id number] Univers 09:00:00 09:00:00 ity [facility] 2019-11-10 2019-11-10 Telephone [facility] 1.2.840.114 [id number] Univers 00:00:00 00:00:00 Wondiful A Health 350.1.13.10 ity of [place] 4.2.7.2.686 Bernabe as Professio [phone] [address] 2019-11-08 2019-11-08 [facility] 1.2.840.114 [id number] Univers 00:00:00 00:00:00 Wondiful A Health 350.1.13.10 ity of [place] 4.2.7.2.686 Bernabe as Professio [phone] [place] [address] [address] Office Building One 2019-11-05 2019-11-05 [facility] 1.2.840.114 [id number] Univers 07:42:01 23:59:00 Encounter Silverio Health 350.1.13.10 ity of [place]2.7.2.686 [place] [phone] [place] [address] [address] ([facility]) 2019-11-05 2019-11-05 Outpatient R KIA [facility] [id number] Univers 00:00:00 00:00:00 SILVERIO ity of [facility] 2019-10-29 2019-10-29 Pre Visit Major [facility] 1.2.840.114 [id number] Univers 00:00:00 00:00:00 Outreach Wondiful A Health 350.1.13.10 ity of [place] 4.2.7.2.686 Bernabe as Professio [phone] [address] Office Building One 2019-10-29 2019-10-29 Pre Visit Major [facility] 1.2.840.114 [id number] Univers 00:00:00 00:00:00 Outreach Wondiful A Health 350.1.13.10 ity of [place] 4.2.7.2.686 Bernabe as Professio [phone] [address] Office Building One 2019-10-28 2019-10-28 Office Major [facility] 1.2.840.114 [id number] Univers 08:55:08 09:43:57 Visit Wondiful A Health 350.1.13.10 ity of [place] 4.2.7.2.686 Bernabe as Professio [phone] [address] Office Building One 2019-10-28 2019-10-28 Outpatient R MAJOR, [facility] [id number] Univers 09:30:00 09:30:00 WONDIFUL ity o f [facility] 2019-10-24 2019-10-24 Emergency [facility] 1.2.095.764 [id number] Univers 19:34:00 23:51:00 Lubna S [place] 350.1.13.10 ity of [place] 4.2.7.2.686 [place] [phone] [facility] [address] [place] 2019-10-24 2019-10-24 Emergency X ORI [facility] ERT [id number] Univers 19:34:00 23:51:00 LUBNA ity of [facility] 2019-10-24 2019-10-24 Telephone [facility] 1.2.840.114 [id number] Univers 00:00:00 00:00:00 Wondiful A Health 350.1.13.10 ity of [place] 4.2.7.2.686 Bernabe as Professio [phone] [address] Office Building [facility] 2019-10-24 2019-10-24 Orders Doctor YANA 1.2.840.114 [id number] Univers 00:00:00 00:00:00 Only Unassigned, CARLOS 350.1.13.10 ity of [place] HOSPITAL 4.2.7.2.686 Bernabe as [phone] [facility] [address] [place] 2019-10-21 2019-10-21 Telephone Mary Kay Adam 1.2.353.596 [id number] Univers 00:00:00 00:00:00 Silverio [place] 350.1.13.10 it y of Hospital 4.2.7.2.686 Bernabe as [phone] [facility] [address] [place] 2019-10-09 2019-10-09 Telephone GLENNA Adam 1.2.840.114 [id number] Univers 00:00:00 00:00:00 Silverio Y HEALTH 350.1.13.10 i ty of CLINICS 4.2.7.2.[place] [phone] [facility] [address] [place] 2019-10-08 2019-10-08 [facility]phone [facility] 1.2.840.114 [id number] Univers 00:00:00 00:00:00 Wondiful A Health 350.1.13.10 ity of [place] 4.2.7.2.686 Bernabe as Professio [phone] [address] Office [facility] 2019-10-08 2019-10-08 Ely Adam [facility] 1.2.808.800 [id number] Univers 00:00:00 00:00:00 Silverio [place] 350.1.13.10 i ty of [place].2.7.2.[place] [phone] [facility] [address] [facility] 2019-10-01 2019-10-01 Orders Doctor YANA 1.2.840.114 [id number] Univers 00:00:00 00:00:00 Only Unassigned, CARLOS 350.1.13.10 ity of [place] [facility] 4.2.7.2.686 Bernabe as [phone] [address] 2019-09-23 2019-09-23 Telephone [facility] 1.2.871.752 [id number] Univers 00:00:00 00:00:00 Silverio [place] 350.1.13.10 i ty of [place] 4.2.7.2.[place] Profess[place] [phone] [facility] [address] [facility] 2019-09-18 2019-09-18 Telephone [facility] 1.2.840.114 [id number] Univers 00:00:00 00:00:00 Wondiful A [place] 350.1.13.10 ity of [place] 4.2.7.2.686 [place] Profess[place] [phone] [facility] [address] [facility] 2019-09-17 2019-09-17 [facility] 1.2.002.606 [id number] Univers 00:00:00 00:00:00 Silverio [place] 350.1.13.10 i ty of [place] 4.2.7.2.[place] [phone] [place] [address]29 [facility] 2019-09-16 2019-09-16 Office [facility] 1.2.840.114 [id number] Univers 10:18:05 12:06:59 Visit Silverio [place] 350.1.13.10 i ty of [place] 4.2.7.2.[place] Profess[place] [phone] [place] 0[address]29 [facility] 2019-09-16 2019-09-16 Outpatient [facility] [id number] Univers 10:40:00 10:40:00 SILVERIO ity of [facility] 2019-09-16 2019-09-16 Telephone [facility] 1.2.083.192 [id number] Univers 00:00:00 00:00:00 Sriram [place] 350.1.13.10 ity of [place] 4.2.7.2.[place] Profess[place] [phone] Ms dical nal [address] [facility] 2019-09-15 2019-09-15 Laboratory Pc, Adc Echo Room 1 - [facility] 1 .2.840.114 [id number] Univers 09:42:44 11:10:38 Only Kumar Sriram Palomo 350.1.13.10 ity of [place] 4.2.7.2.686 [place] Professio [phone] Ms dicmo nal [address] [place] [address] 2019-09-15 2019-09-15 Outpatient R [facility] [id number] Univers 10:00:00 10:00:00 ity of [facility] 2019-09-10 2019-09-10 Telephone [facility] 1.2.840.114 [id number] Univers 00:00:00 00:00:00 Wondiful A De[place] 350.1.13.10 ity of [place] 4.2.7.2.[place] Profess[place] [phone] Ms dical nal [address] [facility] 2019-09-08 2019-09-08 Office [facility] 1.2.840.114 [id number] Univers 13:10:22 13:44:08 Visit Sriram Palomo 350.1.13.10 ity of [place] 4.2.7.2.[place] Profess[place] [phone] Ms dical nal [address] [facility] 2019-09-08 2019-09-08 Outpatient R [facility] [id number] Univers 13:20:00 13:20:00 SRIRAM fergusony o f [facility] 2019-08-25 2019-08-25 Refill [facility] 1.2.840.114 [id number] Univers 00:00:00 00:00:00 Sriram Health 350.1.13.10 i ty of [place] 4.2.7.2.686 Bernabe as Professio [phone] Ms dical nal [address] [place] Office [facility] One 2019-08-18 2019-08-18 Telephone Kumar, [facility] 1.2.083.834 [id number] Univers 00:00:00 00:00:00 Sriram Palomo 350.1.13.10 ity of [place] 4.2.7.2.[place] Profess[place] [phone] [facility] nal [address] [facility] 2019-08-15 2019-08-15 Nurse Visit, [facility] Nurse [facility] 1.2.840.1 14 [id number] Univers 09:12:28 21:57:47 Visit Dago Gross 350.1.13. 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 10 ity of [place] 4.2.7.2.[place] Profess[place] [phone] [facility] [address] [facility] 2019-08-15 2019-08-15 Outpatient R [facility] [id number] Univers 09:30:00 09:30:00 ity of [facility] 2019-08-13 2019-08-13 [facility] 1.2.840.114 [id number] Univers 16:05:34 16:57:20 Visit Alexey Palomo 350.1.13.10 i ty of [place] 4.2.7.2.[place] Profess[place] [phone] [facility] nal [address] [facility] 2019-08-13 2019-08-13 Outpatient R TIN [facility] [id number] Univers 16:30:00 16:30:00 GALILEAONG ity of [facility] 2019-08-13 2019-08-13 Orders Doctor MILLAN 1.2.840.114 [id number] Univers 00:00:00 00:00:00 Only Unassigned, CARLOS 350.1.13.10 ity of [place] HOSPITAL 4.2.7.2.686 Bernabe as [phone] [address] 2019-08-13 2019-08-13 [facility] 1.2.840.114 [id number] Univers 00:00:00 00:00:00 Sriram Palomo 350.1.13.10 ity of [place] 4[place]2.7.2.[place] Profess[place] [phone] [address] 2019-08-07 2019-08-07 [facility] 1.2.840.114 [id number] Univers 00:00:00 00:00:00 Wondiful A Health 350.1.13.10 ity of [place] 4.2.7.2.686 Bernabe as Professio [phone] [address] Office [facility] 2019-08-04 2019-08-04 Continuous Process Coffee Roaster Pc, Adc Vascular Room 1 - [facility] 1.2.840.114 [id number] Univers 10:43:00 11:05:18 Visit Sriram Heath 350.1.13.10 ity of [place] 4.2.7.2.[place] Profess[place] [phone] [address] 2019-08-04 2019-08-04 Outpatient R [facility] [id number] Univers 11:00:00 11:00:00 ity of [facility] 2019-08-04 2019-08-04 Telephone [facility] 1.2.961.010 [id number] Univers 00:00:00 00:00:00 Dimitrizechariah Palomo 350.1.13.10 ity of [place] 4.2.7.2.[place] Profess[place] [phone] [address] 2019-08-03 2019-08-03 [facility] 1.2.840.114 [id number] Univers 00:00:00 00:00:00 Wondiful A Health 350.1.13.10 ity of [place] 4.2.7.2.686 Bernabe as Professio [phone] [address] Office [facility] 2019-07-30 2019-07-30 Office [facility] 1.2.840.114 [id number] Univers 13:54:46 14:40:55 Visit Sriram Palomo 350.1.13.10 ity of [place] 4.2.7.2.[place] Profess[place] [phone] [facility] [address] [facility] 2019-07-30 2019-07-30 Outpatient R [facility] [id number] Univers 14:20:00 14:20:00 SRIRAM ity o f [facility] 2019-07-30 2019-07-30 Orders Doctor YANA 1.2.840.114 [id number] Univers 00:00:00 00:00:00 Only Unassigned, CARLOS 350.1.13.10 ity of [place] HOSPITAL 4.2.7.2.686 Bernabe as [phone] [address] 2019-07-17 2019-07-17 Orders Doctor YANA 1.2.840.114 [id number] Univers 00:00:00 00:00:00 Only Unassigned, CARLOS 350.1.13.10 ity of [place] HOSPITAL 4.2.7.2.686 Bernabe as [phone] [address] 2019-07-16 2019-07-16 Telephone [facility] 1.2.840.114 [id number] Univers 00:00:00 00:00:00 Wondiful A Health 350.1.13.10 ity of [place] 4.2.7.2.686 Bernabe as Professio [phone] [facility] [address] [place] Office Building One 2019-07-01 2019-07-01 Telephone [facility] 1.2.067.076 [id number] Univers 00:00:00 00:00:00 Sriram Palomo 350.1.13.10 ity of [place]2.[place].2.[place] [phone] Ms dical nal [address] [facility] 2019-06-30 2019-06-30 Continuous Process Coffee Roaster [place], Adc Lab Main [facility] 1.2.8 40.114 [id number] Univers 07:52:57 08:07:57 Visit Kumar, Qiangjun [place] 350.1.13.10 ity of [place] 4.2.7.2.[place] [phone] [facility] [address] [facility] 2019-06-30 2019-06-30 Outpatient R KUMAR, [facility] [id number] Univers 08:00:00 08:00:00 SRIRAM ity o f [facility] 2019-06-25 2019-06-25 Outpatient R KUMAR, [facility] [id number] Univers 09:40:00 09:40:00 QIACHAIM ity o f [facility] 2019-06-25 2019-06-25 Telemedici [facility] 1.2.840.114 [id number] Univers 08:37:50 08:57:50 ne Visit Guillelisazechariah [place] 350.1.13.10 ity of [place] 4.2.7.2.[place] Profess[place] [phone] [facility] [address] [facility] 2019-05-28 2019-05-28 [facility] 1.2.840.114 [id number] Univers 00:00:00 00:00:00 Wondiful A Health 350.1.13.10 ity of [place] 4.2.7.2.686 Bernabe as Professio [phone] [facility] 044 [facility] 2019-05-25 2019-05-25 [facility] 1.2.840.114 [id number] Univers 00:00:00 00:00:00 Wondiful A Health 350.1.13.10 ity of [place] 4.2.7.2.686 Bernabe as Professio [phone] [facility] 044 [facility] 2019-05-21 2019-05-21 Outpatient R ALEXUS RAMOS [facility] [id number] Univers 10:00:00 10:00:00 ALEXUS RAMOS ity [facility] 2019-05-20 2019-05-20 Telemedici [facility] 1.2.840.114 [id number] Univers 13:50:59 14:10:59 ne Visit [facility] 350.1.13.10 ity [place].2.[place] [phone] Ms dical nal [address] [facility] 2019-05-20 2019-05-20 Outpatient [facility] [id number] Univers 13:40:00 13:40:00 QIANGZECHARIAH ity o f [facility] 2019-05-20 2019-05-20 Telephone [facility] 1.2.840.114 [id number] Univers 00:00:00 00:00:00 Wondiful A Health 350.1.13.10 ity of [place] 4.2.7.2.686 Bernabe as Professio [phone] Ms dical nal [address] [place] Office [facility] 2019-05-13 2019-05-13 Telephone [facility] 1.2.769.397 [id number] Univers 00:00:00 00:00:00 Qiangjun [place] 350.1.13.10 ity of [place] 4.2.7.2.[place] [phone] Ms dical nal [address] [facility] 2019-05-09 2019-05-09 Refill [facility] 1.2.840.114 [id number] Univers 00:00:00 00:00:00 Wondiful A Health 350.1.13.10 ity of [place] 4.2.7.2.686 Bernabe as Professio [phone] Ms dical nal 044 [facility] 2019-05-02 2019-05-02 Telephone [facility] 1.2.840.114 [id number] Univers 00:00:00 00:00:00 Wondiful A Health 350.1.13.10 ity of [place] 4.2.7.2.686 Bernabe as Professio [phone] Ms dical nal 044 [facility] 2019-05-02 2019-05-02 Telephone [facility] 1.2.152.074 [id number] Univers 00:00:00 00:00:00 Wentong [place] 350.1.13.10 i ty [place].2.7.2.[place] [phone] Ms dical nal [address] [facility] 2019-04-30 2019-04-30 Continuous Process Coffee Roaster [place], Adc Lab Main [facility] 1.2.8 40.114 [id number] Univers 09:32:20 09:47:20 Visit Sriram Heath [place] 350.1.13.10 ity of [place] 4.2.7.2.[place] [phone] Ms dical nal [address] [facility] 2019-04-30 2019-04-30 Outpatient R [facility] [id number] Univers 09:45:00 09:45:00 SRIRAM fergusony o f [facility] 2019-04-30 2019-04-30 Telephone [facility] 1.2.840.114 [id number] Univers 00:00:00 00:00:00 Wondiful A [employer] 350.1.13.10 ity of [place] 4.2.7.2.686 Bernabe as Professio [phone] Ms dical nal 044 [facility] 2019-04-28 2019-04-28 Office [facility] 1.2.840.114 [id number] Univers 13:21:45 14:34:07 Visit Sriram Palomo 350.1.13.10 ity of [place]2.7.2.[place] [phone] Ms dical nal [address] [facility] 2019-04-28 2019-04-28 Outpatient R [facility] [id number] Univers 13:20:00 13:20:00 SRIRAM ity o f [facility] 2019-04-09 2019-04-09 Continuous Process Coffee Roaster [place], Adc Lab Main [facility] 1.2.8 40.114 [id number] Univers 16:15:01 16:30:01 Visit Alexey [place] 350.1.13.10 ity of [place].2.7.2.[place] [phone] Ms dical nal 353 [facility] 2019-04-09 2019-04-09 Office [facility] 1.2.840.114 [id number] Univers 15:08:31 15:58:05 Visit Alexey [place] 350.1.13.10 i ty of [place] 4.2.7.2.[place] [phone] Me dical nal [address] [facility] 2019-04-09 2019-04-09 Orders Doctor YANA 1.2.840.114 [id number] Univers 00:00:00 00:00:00 Only Unassigned, CARLOS 350.1.13.10 ity of [place] HOSPITAL 4.2.7.2.686 Bernabe as [phone] [address] 2019-03-14 2019-03-30 Nurse Visit, [facility] Nurse [facility] 1.2.840.1 14 [id number] Univers 08:39:08 18:06:53 Visit Dago Gross 350.1.13. 10 ity of [place].2.[place] [phone] [facility] 0[address] [facility] 2019-03-28 2019-03-28 Telephone Major [facility] 1.2.840.114 [id number] Univers 00:00:00 00:00:00 Wondiful A Health 350.1.13.10 ity of [place] 4.2.7.2.686 Bernabe as Professio [phone] [facility] 044 [facility] 2019-03-24 2019-03-24 Telephone Major [facility] 1.2.840.114 [id number] Univers 00:00:00 00:00:00 Wondiful [facility] [id number] [facility]y of [place] [id number] Bernabe as Professio [phone] [facility] 044 [facility] 2019-03-14 2019-03-14 Outpatient R GINNY [facility] [id number] Univers 09:15:00 09:37:46 SENDIL ity of [facility] 2019-03-14 2019-03-14 Orders Doctor YANA 1.2.840.114 [id number] Univers 00:00:00 00:00:00 Only Unassigned, CARLOS [id number] ity of [facility] [id number] Bernabe as [phone] [address] 2019-03-06 2019-03-06 [facility] 1.2.840.114 [id number] Univers 00:00:00 00:00:00 Wondiful A [facility] [id number] ity of [place] [id number] Bernabe as Professio [phone] [place] [address] [address] 2019-01-27 2019-01-27 [facility] [id number] Univers 14:20:00 14:44:45 SRIRAM fergusony o f [facility] 2019-01-19 2019-01-19 Emergency [facility] [id number] Univers 10:06:29 15:10:00 EVAN alvino [facility] 2019-01-06 2019-01-06 Outpatient [facility] [id number] Univers 15:00:00 15:00:00 WONRAKELPASTOR de oliveira o f [facility] 2018-12-11 2018-12-11 Outpatient [facility] [id number] Univers 08:45:00 08:45:00 EKATERINA martykelsie [facility] 2018-11-01 2018-11-01 [facility]phone [facility] 1.2.840.114 [id number] Univers 00:00:00 00:00:00 Wissa HEALTH [id number] it y of [facility] [id number] [facility] [phone] [facility] 2018-10-31 2018-10-31 [facility].2.840.114 [id number] Univers 00:00:00 00:00:00 Wondiful A Health 350.1.13.10 ity of [place] 4.2.7.2.686 Bernabe as Professio [phone] [address] Office Building One 2018-10-30 2018-10-30 [facility]phone [facility] [id number] Univers 00:00:00 00:00:00 Madeleinephilip Cerdaen HEALTH 350.1.13.10 ity of [place] 4.2.7.2.686 [facility] [phone] [facility] & [address] Specialty Care 2018-10-30 2018-10-30 [facility]phone [facility] 1.2.840.114 [id number] Univers 00:00:00 00:00:00 Wondiful A Health 350.1.13.10 ity of [place] 4.2.7.2.686 Bernabe as Professio [phone] [facility] [address] 2018-10-29 2018-10-29 Office Cookie, [facility] 1.2.840.114 [id number] [facility] 13:11:56 13:52:23 Visit Emily Health 350.1.13.10 i ty of [place] 4.2.7.2.686 Bernabe as Professio [phone] [facility] [address] One 2018-10-28 2018-10-29 Office Salvador, Luís Heart Failure Cardio [facility] 1.2.840.114 [id number] [facility] 15:47:43 12:03:16 Visit Edgar Cortés [place] 350.1 .13.10 ity of [place] 4.2.7.2.686 [place] Profess[place] [phone] [facility] [address] [place] [facility] 2018-10-28 2018-10-28 Hospital Nate [facility] 1.2.840.114 [id number] [facility] 16:46:06 23:59:00 Encounter Madeleine Rica [place] 350.1.13.10 ity of [place]2.7.2.686 [place] [phone] [facility] [address] 2018-10-28 2018-10-28 Continuous Process Coffee Roaster 1, Adc Lab [facility] 1.2.840.114 [id number] [facility] 16:41:14 16:56:14 Visit Madeleine [place] 350.1.13.10 ity of [place].2.686 [place] [phone] [facility] [address] 2018-10-28 2018-10-28 Orders Doctor YANA 1.2.840.114 [id number] Univers 00:00:00 00:00:00 Only Unassigned, CARLOS 350.1.13.10 ity of [place] [facility] 4.2.7.2.686 Bernabe as [phone] [facility] [address] 2018-10-24 2018-10-24 Refill Willian, [facility] 1.2.840.114 [id number] Univers 00:00:00 00:00:00 Wissam HEALTH 350.1.13.10 it y of [place] 4.2.7.2.686 [place] [phone] [facility] & [facility] Branch Specialty Care 2018-10-14 2018-10-14 Refill Freddy, [facility] 1.2.840.114 [id number] Univers 00:00:00 00:00:00 Min [place] 350.1.13.10 i ty of [place] 4.2.7.2.686 [place] Profess[place] [phone] [facility] [address] 2018-10-01 2018-10-01 Orders Doctor YANA 1.2.840.114 [id number] Univers 00:00:00 00:00:00 Only Unassigned, CARLOS 350.1.13.10 ity of [place] [facility] 4.2.7.2.686 Bernabe as [phone] [facility] [address] 2018-09-26 2018-09-26 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, [facility] Fam Pob I [facility] 1.2. 840.114 [id number] Univers 13:45:07 15:25:16 Visit Josiane Gonsalvespastor A Health 350.1.13.1 0 ity of [place] 4.2.7.2.686 Bernabe as Professio [phone] [facility] [address] One 2018-09-26 2018-09-26 Telephone Fac, [facility] 1.2.840.114 [id number] Univers 00:00:00 00:00:00 Heart HEALTH 350.1.13.10 it y of Failure [place] 4.2.7.2.686 [place] [phone] [facility] & [address] [place] [address] Specialty Care 2018-09-10 2018-09-10 Office Major [facility] 1.2.840.114 [id number] Univers 12:36:16 13:37:40 Visit Noahdiful A Health 350.1.13.10 ity of [place] 4.2.7.2.686 Bernabe as Professio [phone] Ms dical nal [address] One 2018-09-02 2018-09-02 Orders Doctor YANA 1.2.840.114 [id number] Univers 00:00:00 00:00:00 Only Unassigned, CARLOS 350.1.13.10 ity of [place] [facility] 4.2.7.2.686 Bernabe as [phone] [address] Results Test Description Test Time Test Comments Results Result Comments Source POCT GLUCOSE (AUTOMATED) 2022-02-19 18:34:13 Test Item Value Reference Range Interpretation Comme nts POCT GLU (test code = 6078909530) 354 mg/dL 70-110 H Lab Interpretation (test code = 90765-6) [facility]normal [facility]2022-02-19 14:51:34 Test Item Value Reference Range Interpretation Comments POCT GLU (test code = 6128669615) 158 mg/dL 70-110 H Lab Interpretation (test code = Abnormal 96195-7) [facility]2022-02-19 07:09:11 Test Item Value Reference Range Interpretation Comments POCT GLU (test code = 2767194220) 109 mg/dL 70-110 Lab Interpretation (test code = Normal 36554-3) [facility] GLUCOSE (AUTOMATED)2022-02-19 06:15:00 Test Item Value Reference Range Interpretation Comments POCT GLU (test code = 2880117663) 56 mg/dL 70-110 L Lab Interpretation (test code = Abnormal 27525-8) [facility] GLUCOSE (AUTOMATED)2022-02-19 03:41:03 Test Item Value Reference Range Interpretation Comments POCT GLU (test code = 2685477387) 197 mg/dL 70-110 H Lab Interpretation (test code = Abnormal 17511-9) [facility] GLUCOSE (AUTOMATED)2022-02-18 23:17:16 Test Item Value Reference Range Interpretation Comments POCT GLU (test code = 1829813858) 240 mg/dL 70-110 H Lab Interpretation (test code = Abnormal 33202-4) [facility] GLUCOSE (AUTOMATED)2022-02-18 18:24:23 Test Item Value Reference Range Interpretation Comments POCT GLU (test code = 1196226146) 274 mg/dL 70-110 H Lab Interpretation (test code = Abnormal 24404-8) [facility]2022-02-18 18:24:18 Test Item Value Reference Range Interpretation Comments POCT GLU (test code = 2250227158) 92 mg/dL 70-110 Lab Interpretation (test code = Normal 10295-9) [facility] (Total Cholesterol, Triglycerides, HDL) - [id number] 12:27:34 Test Item Value Reference Range Interpretation Comments CHOL (test code = 146 mg/dL 120-200 5908590860) HDL (test code = 54 mg/dL See_Comment [Automated message] 9696858716) The system fundfindr generated this result transmit luis miguel reference range : >=50. The refer ence range was not u sed to interpret th is result as normal/abnormal . HDLC RATIO (test code = See_Comment [Au tomated message] 2688861790) The system [employer] generated this result transmit luis miguel reference range : <=4.5. The refe rence range was not u sed to interpret th is result as normal/abnormal . TRIG (test code = 113 mg/dL 30-170 2155534438) LDL CHOL (test code = 69 mg/dL See_Comment [Auto mated message] 74841-8) The system fundfindr generated this result transmit luis miguel reference range : <=160. The refe rence range was not u sed to interpret th is result as normal/abnormal . VLDL (test code = 23 mg/dL 5-60 5648041648) Lab Interpretation (test Normal code = 73587-9) [facility] [id number] 12:27:34 Test Item Value Reference Range Interpretation Comments NT-proBNP (test code 73242 pg/mL See_Comment H [Autom ated = 8339334326) message] The system which generated this result transmitted reference range : <=450. The reference range was not used to interpret this result as normal/abnormal . SEN (test code = SEN) Biotin has been reported to cause a negative bias, interpret results relative to patient's use of biotin. Lab Interpretation Abnormal (test code = 52095-0) [facility] (NA, K, CL, CO2, GLUCOSE, BUN, CREATININE, CA)2022-02-18 12:27:14 Test Item Value Reference Range Interpretation Comments NA (test code = 137 mmol/L 135-145 7723958998) K (test code = 4.0 mmol/L 3.5-5.0 3997900567) CL (test code = 104 mmol/L 98-108 4764862176) CO2 TOTAL (test code = 25 mmol/L 23-31 1683242902) AGAP (test code = 2-16 0191569191) BUN (test code = 62 mg/dL 7-23 H 3360651946) GLUCOSE (test code = 90 mg/dL 70-110 4376426978) CREATININE (test code = 2.02 mg/dL 0.50-1.04 H 9070717335) CALCIUM (test code = 8.3 mg/dL 8.6-10.6 L 8715836710) eGFR (test code = mL/min/1.73m2 6878349199) SEN (test code = SEN) Association of [...] tests). Lab Interpretation Abnormal (test code = 39590-2) [facility] WITH [id number] 11:30:43 Test Item Value Reference Range Interpretation [...] RDW-SD (test code = 46.4 fL 39.0-49.9 67200-8) RDW-CV (test code = 13.2 % 12.0-15.5 788-0) PLT (test code = See_Comment [Automated 777-3) message] The sy stem which generated this result transmitted reference range : 166 - 358 10*3/ ?L. The reference r beltran was not used to interpret this result as normal/abnormal . MPV (test code = 13.0 fL 9.5-12.9 H 11328-3) NRBC/100 WBC (test See_Comment [Automat ed code = 8697714460) message] The system which generated this result transmitted reference range : 0.0 - 10.0 /100 WBCs. The refer ence range was not u sed to interpret th is result as normal/abnormal . NRBC x10^3 (test code See_Comment [Auto mated = 3659738814) message] The s ystem which generated this result transmitted reference range : 10*3/?L. The reference range was not used to interpret this result as normal/abnormal . GRAN MAT (NEUT) % 58.4 % (test code = 770-8) IMM GRAN % (test code 0.30 % = 9479882002) LYMPH % (test code = 27.5 % 736-9) MONO % (test code = 9.3 % 5905-5) EOS % (test code = 4.2 % 713-8) BASO % (test code = 0.3 % 706-2) GRAN MAT x10^3(ANC) 3.71 10*3/uL 1.88-7.09 (test code = 6383493289) IMM GRAN x10^3 (test 0.00-0.06 code = 3131611477) LYMPH x10^3 (test code 1.75 10*3/uL 1.32-3.29 = 731-0) MONO x10^3 (test code 0.59 10*3/uL 0.33-0.92 = 742-7) EOS x10^3 (test code = 0.27 10*3/uL 0.03-0.39 711-2) BASO x10^3 (test code 0.01-0.07 = 704-7) Lab Interpretation Abnormal (test code = 21675-7) [facility] GLUCOSE (AUTOMATED)2022-02-18 02:39:08 Test Item Value Reference Range Interpretation Comments POCT GLU (test code = 5776581260) 196 mg/dL 70-110 H Lab Interpretation (test code = Abnormal 17825-6) [facility] GLUCOSE (AUTOMATED)2022-02-17 23:16:54 Test Item Value Reference Range Interpretation Comments POCT GLU (test code = 1621578235) 140 mg/dL 70-110 H Lab Interpretation (test code = Abnormal 30900-4) [facility] (TTE)2022-02-17 19:44:53 Test Item Value Reference Range Interpretation Comments Height (test code = in 2857933153) Weight (test code = lbs 0428793070) Systolic BP (test code = mmHg 9587636339) Diastolic BP (test code mmHg = 9908864547) Heart Rate (test code = bpm 3877725830) BSA (test code = 1.81 m2 2788493768) Ao root diam (test code 3.30 cm = 6848805599) Aortic root (test code = 3.3 cm 9613559033) Ao root annulus (test 3.3 cm code = 8683271665) LVOT diameter (test code 1.89 cm = 3167896683) LVOT area (test code = 2.80 cm2 3996342321) LAV(MOD-sp4) (test code 52.90 mL = 9491883154) E wave decelartion time 0.17 s (test code = 8982676571) MV stenosis pressure 1/2 51.3 ms time (test code = 3225670949) MV Peak E Mily (test code 95.2 cm/s = 3337965581) MV Peak A Mily (test code 61.8 cm/s = 4985010585) E/A ratio (test code = ratio 7256614181) MV Prop V (test code = 23.30 cm/s 5503430449) MV E/e' septal (test 7.8 cm/s code = 2467210636) TR Peak Mily (test code = 310.8 cm/s 2735646627) Triscuspid Valve mmHg Regurgitation Peak Gradient (test code = 5204838252) Tapse (test code = 1.99 cm 2729452909) LVOT stroke volume (test 40.40 cm3 code = 2506844292) LVOT peak mily (test code 67.8 cm/s = 5903492838) LVOT mn grad (test code mmHg = 9185577240) AV LVOT peak gradient mmHg (test code = 3984213398) LVOT peak VTI (test code 14.4 cm = 6768733425) LV V1 mean (test code = 45.30 cm/s 6204210289) MR max PG (test code = 65.40 mm[Hg] 5592036535) MR max mily (test code = 404.30 cm/s 6396672231) Mr max mily (test code = 404.3 m/s 0655634381) LVIDD (test code = 6.30 cm 2622306942) Left Ventricular End 202.4 mL Diastolic Volume by Teichholz Method (test code = 0874636) IVS (test code = 0.94 cm 1224206387) Interventricular Septum 0.94 cm Diastolic Thickness by 2D (test code = 6115749) LVPWD (test code = 0.94 cm 0372912540) PW (test code = 0.94 cm 0.6-1.0 1212007508) EF(Teich) (test code = 19.10 % 1882782274) LVIDS (test code = 5.80 cm 0438852504) Left Ventricular End 163.8 mL Systolic Volume by Teichholz Method (test code = 7210109) FS (test code = 9 % 6549893391) EF - 2D (test code = 19.10 % 33041532) LA size (test code = 3.5 cm 0222278149) Radiology Study observation (narrative) (test code = 28444-5) SEN (test code = SEN) Table formatting [...] mL of Lumason ultrasound enhancing agent used. [facility] GLUCOSE (AUTOMATED)2022-02-17 18:19:03 Test Item Value Reference Range Interpretation Comments POCT GLU (test code = 3488409015) 160 mg/dL 70-110 H Lab Interpretation (test code = Abnormal 34893-7) [facility] GLUCOSE (AUTOMATED)2022-02-17 14:06:55 Test Item Value Reference Range Interpretation Comments POCT GLU (test code = 7814384131) 101 mg/dL 70-110 Lab Interpretation (test code = Normal 73385-0) [facility] GLUCOSE (AUTOMATED)2022-02-17 03:58:48 Test Item Value Reference Range Interpretation Comments POCT GLU (test code = 1580497935) 278 mg/dL 70-110 H Lab Interpretation (test code = Abnormal 63287-0) [facility] GLUCOSE (AUTOMATED)2022-02-17 03:21:46 Test Item Value Reference Range Interpretation Comments POCT GLU (test code = 5571583475) 279 mg/dL 70-110 H Lab Interpretation (test code = Abnormal 00957-3) [facility] HEMOGLOBIN (A1C)2022-02-17 01:58:04 Test Item Value Reference Range Interpretation Comments HGB A1C (test code = 10.0 % 4.0-5.7 H 4548-4) SEN (test code = SEN) Reference RangesNormal: <5.7%Prediabetes: 5.7 - 6.4%Diabetes: > 6.5% Lab Interpretation (test Abnormal code = 63634-1) [facility] HospitalTR[facility]IN [id number] 17:30:57 Test Item Value Reference Interpretation Comments Range TROPONIN I (test 0.028 ng/mL See_Comment [Automated code = 7349422577) message] The system which generated this result [...] biotin. Lab Interpretation Normal (test code = 13640-7) [facility]N-[facility]AL [id number] 17:27:54 Test Item Value Reference Range Interpretation Comments NT-proBNP (test code 85982 pg/mL See_Comment H [Autom ated = 4993335382) message] The system which generated this result transmitted reference range : <=450. The reference range was not used to interpret this result as normal/abnormal . SEN (test code = SEN) Biotin has been reported to cause a negative bias, interpret results relative to patient's use of biotin. Lab Interpretation Abnormal (test code = 27442-7) [facility] METABOLIC PANEL (NA, K, CL, CO2, GLUCOSE, BUN, CREATININE, CA)2022-02-16 17:19:15 Test Item Value Reference Range Interpretation Comments NA (test code = 135 mmol/L 135-145 0832445068) K (test code = 4.7 mmol/L 3.5-5.0 7665782126) CL (test code = 104 mmol/L 98-108 5781785699) CO2 TOTAL (test code = 23 mmol/L 23-31 2133568275) AGAP (test code = 2-16 2968971896) BUN (test code = 58 mg/dL 7-23 H 8729274023) GLUCOSE (test code = 260 mg/dL 70-110 H 1235765877) CREATININE (test code = 1.78 mg/dL 0.50-1.04 H 5149474402) CALCIUM (test code = 8.2 mg/dL 8.6-10.6 L 9753363425) eGFR (test code = mL/min/1.73m2 3167798160) SEN (test code = SEN) Association of [...] tests). Lab Interpretation Abnormal (test code = 96622-7) [facility]HEPAT[facility] FUNCTION PANEL (55267) (ALB,T.PRO,BILI T,BU/BC,ALT,AST,ALK PHOS)2022-02-16 17:19:15 Test Item Value Reference Range Interpretation Comments TOTAL BILI (test code = 6634224729) 0.4 mg/dL 0.1-1.1 BILI UNCON (test code = 4532645848) 0.3 mg/dL 0.1-1.1 BILI CONJ (test code = 7519312234) 0.0 mg/dL 0.0-0.3 T PROTEIN (test code = 3945547314) 6.8 g/dL 6.3-8.2 ALBUMIN (test code = 1481235378) 3.8 g/dL 3.5-5.0 ALK PHOS (test code = 7244071803) 146 U/L 34-122 H ALTv (test code = 1742-6) 29 U/L 5-35 AST(SGOT) (test code = 7975020905) 28 U/L 13-40 Lab Interpretation (test code = Abnormal 40004-8) [facility] HospitalLIPASE2022-12-29 17:19:15 Test Item Value Reference Range Interpretation Comments LIPASE (test code = 2514516026) 46 U/L 0-220 Lab Interpretation (test code = Normal 24954-9) [facility] WITH [id number] 17:12:53 Test Item Value Reference Range Interpretation [...] RDW-SD (test code = 47.8 fL 39.0-49.9 39954-1) RDW-CV (test code = 13.5 % 12.0-15.5 788-0) PLT (test code = See_Comment [Automated 777-3) message] The sy stem which generated this result transmitted reference range : 166 - 358 10*3/ ?L. The reference r beltran was not used to interpret this result as normal/abnormal . MPV (test code = 12.9 fL 9.5-12.9 02517-8) NRBC/100 WBC (test See_Comment [Automat ed code = 3821786859) message] The system which generated this result transmitted reference range : 0.0 - 10.0 /100 WBCs. The refer ence range was not u sed to interpret th is result as normal/abnormal . NRBC x10^3 (test code See_Comment [Auto mated = 0698018593) message] The s ystem which generated this result transmitted reference range : 10*3/?L. The reference range was not used to interpret this result as normal/abnormal . GRAN MAT (NEUT) % 75.4 % (test code = 770-8) IMM GRAN % (test code 0.20 % = 6508526869) LYMPH % (test code = 14.9 % 736-9) MONO % (test code = 7.7 % 5905-5) EOS % (test code = 1.6 % 713-8) BASO % (test code = 0.2 % 706-2) GRAN MAT x10^3(ANC) 6.77 10*3/uL 1.88-7.09 (test code = 4491852033) IMM GRAN x10^3 (test 0.00-0.06 code = 1538991771) LYMPH x10^3 (test code 1.34 10*3/uL 1.32-3.29 = 731-0) MONO x10^3 (test code 0.69 10*3/uL 0.33-0.92 = 742-7) EOS x10^3 (test code = 0.14 10*3/uL 0.03-0.39 711-2) BASO x10^3 (test code 0.01-0.07 = 704-7) Lab Interpretation Abnormal (test code = 01038-3) [facility] HEMOGLOBIN A1C [id number] 15:15:00 Test Item Value Reference Range Interpretation Comments POCT HBA1C (test code = 4548-4) 7.6 % 4-6 A Lab Interpretation (test code = Abnormal 89683-3) [facility] HEMOGLOBIN A1C [id number] 15:15:00 Test Item Value Reference Range Interpretation Comments POCT HBA1C (test code = 4548-4) 7.6 % 4-6 A Lab Interpretation (test code = Abnormal 25138-8) [facility]
--- NOTE | 2022-06-16 12:35 | RAD REPORT ---
EXAM DESCRIPTION: CT - CTHCSPWOC - 06/16/2022 12:25 pm CLINICAL HISTORY: posterior neck pain COMPARISON: Head Brain Wo Cont dated 05/22/2022 TECHNIQUE: Axial thin cut noncontrast CT images of the head were obtained. Axial thin cut noncontrast CT images of the cervical spine were obtained. Multiplanar reformatted images were generated and reviewed. All CT scans are performed using dose optimization technique as appropriate and may include automated exposure control or mA/KV adjustment according to patient size. FINDINGS: CT HEAD WITHOUT CONTRAST: No acute hemorrhage, hydrocephalus or extra-axial collection is identified.No juxta cortical calcific ations along the parasagittal high left frontal lobe are stable. Similar foci of calcification along the right frontal lobe most anteriorly and inferiorly, as well as along the parasagittal right pariet al lobe are also stable.No areas of brain edema or midline shift. The paranasal sinuses and mastoids are clear.The calvarium is intact. CT CERVICAL SPINE WITHOUT CONTRAST: No fracture or subluxation.No prevertebral soft tissues swelling is identified. IMPRESSION: No acute traumatic intracranial or cervical spine findings. Stable juxta cortical scattered foci of calcification, nonspecific, but could relate to sequelae of p rior neurocysticercosis infection.
--- NOTE | 2022-06-16 13:50 | RAD REPORT ---
EXAM DESCRIPTION: USCarotid Artery Bilateral06/16/2022 12:59 pm CLINICAL HISTORY: Dizziness/neck pain COMPARISON: None FINDINGS: The velocity of the right internal carotid artery equals 70 cm/sec. The right ICA/CCA rati o 1.8 The velocity of the left internal carotid artery equals 57 cm/sec. The left ICA/CCA ratio 1.1 Mild plaque is present within the carotid arteries. The vertebral arteries demonstrate antegrade flow IMPRESSION: Mild plaque within the carotid arteries without evidence of a hemodynamically significan t stenosis NASCET criteria used. Mild 0-49% stenosis Moderate 50-69% stenosis Severe 70-99% stenosis
[2022-06-16] MEDS ORDERED: NA CHLORIDE 0.9% 250 ML ONE ×2 (13:55→15:27)
[2022-06-16 14:10] LABS: Absolute Lymphocytes (CBC) 1.7 K/uL (0.7-4.9); Lymphocytes % 19.2 % (15.3-44.8); MCV 93.3 fL (80-100); RBC Red Blood Cell Count 3.86 M/uL (3.86-4.86)
[2022-06-16 14:23] LABS: Albumin 3.4 g/dL (3.4-5.0); Bilirubin Total 0.2 mg/dL (0.2-1.0); Magnesium 3.3 mg/dL (1.6-2.4); Potassium 3.7 mEq/L (3.5-5.1); Protein, Total 7.9 g/dL (6.4-8.2)
--- NOTE | 2022-06-16 16:06 | ER ---
Nurse's Notes [facility] [place] Name: Teena Simpson Age: 77 yrs Sex: Female : 1945 Arrival Date: 06/16/2022 Time: 11:10 Bed 16 Private MD: Diagnosis: Dehydration-s/p start of two additional diuretics;Strain of muscle, fascia and tendon at neck level;Adverse effect of carbonic-anhydrase inhibitors, benzothiadiazides and other diuretics Presentation: 06/16 11:31 Chief complaint: Patient states: Neck pain since Sunday. Pt reports elevated HR. ld1 Coronavirus screen: At this time, the client does not indicate any symptoms associated with coronavirus-19. Ebola Screen: No symptoms or risks identified at this time. Initial Sepsis Screen: Does the patient meet any 2 criteria? No. Patient's initial sepsis screen is negative. Does the patient have a suspected source of infection? No. Patient's initial sepsis screen is negative. Risk Assessment: Do you want to hurt yourself or someone else? Patient reports no desire to harm self or others. Onset of symptoms was June 16, 2022. 11:31 Method Of Arrival: Wheelchair ld1 11:31 Acuity: TYSON 3 ld1 Triage Assessment: :29 General: Appears in no apparent distress. comfortable, Behavior is calm, cooperative, ld1 appropriate for age. Pain: Complains of pain in neck Pain does not radiate. Pain currently is 10 out of 10 on a pain scale. Quality of pain is described as throbbing. EENT: No signs and/or symptoms were reported regarding the EENT system. Neuro: Level of Consciousness is awake, alert, obeys commands, Oriented to person, place, time, situation. Cardiovascular: Capillary refill < 3 seconds Patient's skin is warm and dry. Respiratory: Airway is patent Respiratory effort is even, unlabored. GI: Abdomen is round non-distended. : No signs and/or symptoms were reported regarding the genitourinary system. Derm: No signs and/or symptoms reported regarding the dermatologic system. Musculoskeletal: No signs and/or symptoms reported regarding the musculoskeletal system. Historical: - Allergies: 11: Augmentin; ld1 11: Cipro; ld1 - Home Meds: : Eliquis 5 mg Oral tablet 1 tab 2 times per day [Active]; furosemide 40 mg Oral tab 1 ld1 tab daily [Active]; atorvastatin 40 mg Oral tab 1 tab every day at bedtime [Active]; metoprolol succinate 50 mg Oral Tablet, Extended Release 24 hr 1 tab 2 times per day [Active]; Novolin N NPH U-100 Insulin 100 unit/mL Sub-Q tab 20 units every evening [Active]; Phenytoin 100mg Oral 1 tabs 2 times per day [Active]; - PMHx: 11:29 Anxiety; Atrial Fib; neuropathy; Myocardial infarction; Seizures; Hypertension; Low HR; ld1 Kidney failure stage 4; High Cholesterol; Diabetes - IDDM; CHF; - PSHx: :29 Appendectomy; Pacemaker-Defib; ld1 - Immunization history:: Adult Immunizations up to date, Client reports receiving the 2nd dose of the Covid vaccine. - Social history:: Smoking status: Patient denies any tobacco usage or history of. Patient/guardian denies using alcohol. Screenin:00 [facility] ED Fall Risk Assessment (Adult) Score/Fall Risk Level 0 - 2 = Low Risk. Abuse eh3 screen: Denies threats or abuse. Denies injuries from another. Nutritional screening: No deficits noted. Tuberculosis screening: No symptoms or risk factors identified. Assessment: 12:00 General: Appears in no apparent distress. uncomfortable, Behavior is calm, cooperative, eh3 appropriate for age. Pain: Complains of pain in base of the skull and neck. Neuro: Level of Consciousness is awake, alert, obeys commands, Oriented to person, place, time, situation. Cardiovascular: Capillary refill < 3 seconds Patient's skin is warm and dry. Respiratory: Airway is patent Respiratory effort is even, unlabored, Respiratory pattern is regular, symmetrical. GI: Abdomen is flat, non-distended. : No signs and/or symptoms were reported regarding the genitourinary system. EENT: No signs and/or symptoms were reported regarding the EENT system. Derm: Skin is pink, warm \T\ dry. Musculoskeletal: Circulation, motion, and sensation intact. 13:00 Reassessment: Patient appears in no apparent distress at this time. Patient and/or eh3 family updated on plan of care and expected duration. Pain level reassessed. Patient is alert, oriented x 3, equal unlabored respirations, skin warm/dry/pink. 14:00 Reassessment: Patient appears in no apparent distress at this time. Patient and/or eh3 family updated on plan of care and expected duration. Pain level reassessed. Patient is alert, oriented x 3, equal unlabored respirations, skin warm/dry/pink. 15:00 Reassessment: Patient appears in no apparent distress at this time. Patient and/or eh3 family updated on plan of care and expected duration. Pain level reassessed. Patient is alert, oriented x 3, equal unlabored respirations, skin warm/dry/pink. 16:00 Reassessment: Patient appears in no apparent distress at this time. Patient and/or eh3 family updated on plan of care and expected duration. Pain level reassessed. Patient is alert, oriented x 3, equal unlabored respirations, skin warm/dry/pink. Vital Signs: 11:29 BP 108 / 69; Pulse 67; Resp 18; Temp 97.7(O); Pulse Ox 100% on R/A; Weight 78.02 kg; ld1 Height 5 ft. 1 in. ; Pain 10/10; 12:30 BP 126 / 74; Pulse 110; Resp 18; Pulse Ox 99% on R/A; eh3 13:30 BP 120 / 67; Pulse 90; Resp 18; Pulse Ox 99% on R/A; eh3 14:05 BP 122 / 74 Supine; Pulse 106; Resp 18; Pulse Ox 99% on R/A; eh3 14:07 BP 114 / 64 Sitting; Pulse 104; Resp 18; Pulse Ox 100% on R/A; eh3 14:09 BP 107 / 63 Standing; Pulse 106; Resp 18; Pulse Ox 99% on R/A; eh3 15:00 BP 109 / 64; Pulse 89; Resp 18; Pulse Ox 100% on R/A; eh3 16:00 BP 110 / 58; Pulse 88; Resp 16; Pulse Ox 98% on R/A; eh3 11:29 Body Mass Index 32.50 (78.02 kg, 154.94 cm) ld1 11:29 Pain Scale: Adult ld1 ED Course: 11:12 Patient arrived in ED. ts1 11:14 Lulú Maravilla FNP-C is PHCP. snw 11:14 Tristan Tracy DO is Attending Physician. snw 11:29 Arm band placed on right wrist. ld1 11:31 Triage completed. ld1 11:55 Maritza Urbina, WM is Primary Nurse. eh3 12:00 Patient has correct armband on for positive identification. Placed in gown. Bed in low eh3 position. Call light in reach. Side rails up X2. Pulse ox on. NIBP on. Door closed. Noise minimized. Warm blanket given. 12:26 CT Head C Spine In Process Unspecified. EDMS 13:01 US Carotid Artery Bilateral In Process Unspecified. EDMS 13:30 Missed attempt(s): 20 gauge in right antecubital area. Bleeding controlled, band aid eh3 applied, catheter tip intact. 13:56 Inserted saline lock: 22 gauge in left antecubital area, using aseptic technique. Blood hb collected. 16:15 No provider procedures requiring assistance completed. eh3 16:30 IV discontinued, intact, bleeding controlled, No redness/swelling at site. Pressure eh3 dressing applied. Administered Medications: 13:45 Drug: NS 0.9% IV 250 ml Route: IV; Rate: bolus; Site: left antecubital; eh3 15:30 Follow up: IV Status: Completed infusion; IV Intake: 250ml eh3 15:30 Drug: NS 0.9% IV 250 ml Route: IV; Rate: bolus; Site: left antecubital; eh3 16:16 Follow up: IV Status: Completed infusion; IV Intake: 250ml eh3 16:00 Drug: Diazepam PO 5 mg Route: PO; eh3 16:16 Follow up: Response: No adverse reaction eh3 Medication: 16:15 VIS not applicable for this client. eh3 Intake: 15:30 IV: 250ml; Total: 250ml. eh3 16:16 IV: 250ml; Total: 500ml. eh3 Outcome: 16:06 Discharge ordered by . snw 16:30 Discharged to home via wheelchair, with family. eh3 16:30 Condition: stable 16:30 Discharge instructions given to patient, family, Instructed on discharge instructions, follow up and referral plans. medication usage, Demonstrated understanding of instructions, follow-up care, medications, Prescriptions given X 1. 16:44 Patient left the ED. eh3 Signatures: Dispatcher [employer] EDMS Lulú Maravilla, SENIOR MARKETING COORDINATOR-C SENIOR MARKETING COORDINATOR-Csnw Jennifer Conteh RN Macarena Lopes RN RN ld1 Maritza Urbina RN RN eh3 Deya Colindres, NOELLE PAS ts1 Corrections: (The following items were deleted from the chart) 16:36 16:36 Abuse screen: eh3 eh3 16:38 16:37 Reassessment: Patient appears in no apparent distress at this time. Patient eh3 and/or family updated on plan of care and expected duration. Pain level reassessed. Patient is alert, oriented x 3, equal unlabored respirations, skin warm/dry/pink. eh3
--- NOTE | 2022-06-16 16:06 | EDPHYS ---
Physician Documentation [facility] Name: Teena Simpson Age: 77 yrs Sex: Female : 1945 Arrival Date: 06/16/2022 Time: 11:10 Bed 16 Private MD: ED Physician Tristan Tracy HPI: 06/16 12:06 This 77 yrs old Female presents to ER via Wheelchair with complaints of Neck snw Injury, HIGH HEART RATE. 12:06 The patient or guardian complains of pain, that is acute. The symptoms are located on snw the base of the skull. Onset: The symptoms/episode began/occurred acutely. Context: The problem was sustained at home, The neck injury/problem resulted from from unknown cause. Associated signs and symptoms: Pertinent positives: palpitations, dizziness. The pain does not radiate. Modifying factors: The symptoms are alleviated by nothing. the symptoms are aggravated by movement. Severity of symptoms: At their worst the symptoms were moderate. The patient has not experienced similar symptoms in the past. recently saw PCP who placed pt on 2 additional diuretics - I suspect this is the cause of pt's s/s. no fever, Daughter states pt's bp has been running low. Historical: - Allergies: 11:29 Augmentin; ld1 11:29 Cipro; ld1 - Home Meds: 11:29 Eliquis 5 mg Oral tablet 1 tab 2 times per day [Active]; furosemide 40 mg Oral tab 1 ld1 tab daily [Active]; atorvastatin 40 mg Oral tab 1 tab every day at bedtime [Active]; metoprolol succinate 50 mg Oral Tablet, Extended Release 24 hr 1 tab 2 times per day [Active]; Novolin N NPH U-100 Insulin 100 unit/mL Sub-Q tab 20 units every evening [Active]; Phenytoin 100mg Oral 1 tabs 2 times per day [Active]; - PMHx: 11:29 Anxiety; Atrial Fib; neuropathy; Myocardial infarction; Seizures; Hypertension; Low HR; ld1 Kidney failure stage 4; High Cholesterol; Diabetes - IDDM; CHF; - PSHx: 11:29 Appendectomy; Pacemaker-Defib; ld1 - Immunization history:: Adult Immunizations up to date, Client reports receiving the 2nd dose of the Covid vaccine. - Social history:: Smoking status: Patient denies any tobacco usage or history of. Patient/guardian denies using alcohol. ROS: 12:05 Constitutional: Negative for fever, chills, and weight loss, Eyes: Negative for injury, snw pain, redness, and discharge, ENT: Negative for injury, pain, and discharge, Respiratory: Negative for shortness of breath, cough, wheezing, and pleuritic chest pain, Abdomen/GI: Negative for abdominal pain, nausea, vomiting, diarrhea, and constipation, Back: Negative for injury and pain, : Negative for injury, bleeding, discharge, and swelling, MS/Extremity: Negative for injury and deformity, Skin: Negative for injury, rash, and discoloration. 12:05 Neck: Positive for pain at rest. 12:05 Cardiovascular: Positive for palpitations. 12:05 Neuro: Positive for dizziness. Exam: 12:04 Constitutional: This is a well developed, well nourished patient who is awake, alert, snw and in no acute distress. Head/Face: Normocephalic, atraumatic. Eyes: Pupils equal round and reactive to light, extra-ocular motions intact. Lids and lashes normal. Conjunctiva and sclera are non-icteric and not injected. Cornea within normal limits. Periorbital areas with no swelling, redness, or edema. ENT: Nares patent. No nasal discharge, no septal abnormalities noted. Tympanic membranes are normal and external auditory canals are clear. Oropharynx with no redness, swelling, or masses, exudates, or evidence of obstruction, uvula midline. Mucous membranes moist. Neck: Trachea midline, no thyromegaly or masses palpated, and no cervical lymphadenopathy. Supple, full range of motion without nuchal rigidity, or vertebral point tenderness. No Meningismus. Chest/axilla: Normal chest wall appearance and motion. Nontender with no deformity. No lesions are appreciated. 12:04 Respiratory: Lungs have equal breath sounds bilaterally, clear to auscultation and percussion. No rales, rhonchi or wheezes noted. No increased work of breathing, no retractions or nasal flaring. Abdomen/GI: Soft, non-tender, with normal bowel sounds. No distension or tympany. No guarding or rebound. No evidence of tenderness throughout. Back: No spinal tenderness. No costovertebral tenderness. Full range of motion. Skin: Warm, dry with normal turgor. Normal color with no rashes, no lesions, and no evidence of cellulitis. MS/ Extremity: Pulses equal, no cyanosis. Neurovascular intact. Full, normal range of motion. Neuro: Awake and alert, GCS 15, oriented to person, place, time, and situation. Cranial nerves II-XII grossly intact. Motor strength 5/5 in all extremities. Sensory grossly intact. Cerebellar exam normal. Normal gait. posterior neck tender but no alteration of ROM or increase pain with movement Psych: Awake, alert, with orientation to person, place and time. Behavior, mood, and affect are within normal limits. 12:04 Cardiovascular: Rate: tachycardic, Rhythm: regular, Heart sounds: normal, Edema: is not appreciated, JVD: is not appreciated. Vital Signs: 11:29 BP 108 / 69; Pulse 67; Resp 18; Temp 97.7(O); Pulse Ox 100% on R/A; Weight 78.02 kg; ld1 Height 5 ft. 1 in. ; Pain 10/10; 12:30 BP 126 / 74; Pulse 110; Resp 18; Pulse Ox 99% on R/A; eh3 13:30 BP 120 / 67; Pulse 90; Resp 18; Pulse Ox 99% on R/A; eh3 14:05 BP 122 / 74 Supine; Pulse 106; Resp 18; Pulse Ox 99% on R/A; eh3 14:07 BP 114 / 64 Sitting; Pulse 104; Resp 18; Pulse Ox 100% on R/A; eh3 14:09 BP 107 / 63 Standing; Pulse 106; Resp 18; Pulse Ox 99% on R/A; eh3 15:00 BP 109 / 64; Pulse 89; Resp 18; Pulse Ox 100% on R/A; eh3 16:00 BP 110 / 58; Pulse 88; Resp 16; Pulse Ox 98% on R/A; eh3 11:29 Body Mass Index 32.50 (78.02 kg, 154.94 cm) ld1 11:29 Pain Scale: Adult ld1 MDM: 11:35 Patient medically screened. snw 15:17 Differential diagnosis: Cervical Disc Herniation Degenerative Disc Disease torticollis, snw dehydration. Data reviewed: vital signs, nurses notes, lab test result(s), radiologic studies. Care significantly affected by the following chronic conditions: Hypertension, Chronic Kidney Disease. Counseling: I had a detailed discussion with the patient and/or guardian regarding: the historical points, exam findings, and any diagnostic results supporting the discharge/admit diagnosis, lab results, radiology results, the need for outpatient follow up, for definitive care, to return to the emergency department if symptoms worsen or persist or if there are any questions or concerns that arise at home. Special discussion: Based on the history and exam findings, there is no indication for further emergent testing or inpatient evaluation. I discussed with the patient/guardian the need to see the primary care provider for further evaluation of the symptoms. Nephrology. ED course: Labs remarkable but stable x 1 yr.. 06/16 12:04 Order name: CBC with Diff; Complete Time: 14:20 snw 06/16 12:04 Order name: CMP; Complete Time: 14:33 snw 06/16 12:04 Order name: Magnesium; Complete Time: 14:33 snw 06/16 12:06 Order name: Phenytoin (dilantin); Complete Time: 14:33 snw 06/16 12:04 Order name: CT Head C Spine; Complete Time: 13:01 snw 06/16 12:04 Order name: US Carotid Artery Bilateral; Complete Time: 13:52 snw 06/16 13:53 Order name: Orthostatics; Complete Time: 14:11 snw 06/16 15:34 Order name: PO challenge: pt wants snack; Complete Time: 16:16 snw Administered Medications: 13:45 Drug: NS 0.9% IV 250 ml Route: IV; Rate: bolus; Site: left antecubital; 3 15:30 Follow up: IV Status: Completed infusion; IV Intake: 250ml 3 15:30 Drug: NS 0.9% IV 250 ml Route: IV; Rate: bolus; Site: left antecubital; eh3 16:16 Follow up: IV Status: Completed infusion; IV Intake: 250ml 3 16:00 Drug: Diazepam PO 5 mg Route: PO; 3 16:16 Follow up: Response: No adverse reaction eh3 Disposition: 12:09 Co-signature as Attending Physician, Tristan MANUEL was immediately available on-site ms3 in the Emergency Department for consultation in the care of the patient. Disposition Summary: 06/16/22 16:06 Discharge Ordered Location: Home snw Condition: Stable snw Diagnosis - Dehydration - s/p start of two additional diuretics snw - Strain of muscle, fascia and tendon at neck level snw - Adverse effect of carbonic-anhydrase inhibitors, benzothiadiazides and other snw diuretics Followup: snw - With: Emergency Department - When: As needed - Reason: Worsening of condition Followup: snw - With: Private Physician - When: 2 - 3 days - Reason: Recheck today's complaints, Continuance of care, Re-evaluation by your physician Discharge Instructions: - Discharge Summary Sheet snw - Cervical Radiculopathy snw - Dehydration, Elderly snw - Chronic Kidney Disease, Adult snw Forms: - Medication Reconciliation Form snw - Thank You Letter snw - Antibiotic Education snw - Prescription Opioid Use snw Prescriptions: - orphenadrine citrate 100 mg Oral tablet extended release - take 1 tablet by ORAL route once daily As needed; 20 tablet; Refills: 0, snw Product Selection Permitted Signatures: Dispatcher [employer] EDLulú Arevalo, TYLER-C CODING COMPLIANCE AUDITOR-Csnw Tristan Tracy DO DO ms3 Macarena Tracy, RN RN ld1 Maritza Urbina RN RN eh3
[2022-06-16] MEDS ORDERED: DIAZEPAM 10 MG/2 ML INJ SYRINGE ONE (16:07)
[2022-06-16 17:05] VITALS: TEMP 97.7
[2022-06-16 17:17] VITALS: BP 110/58; O2SAT 98
== END 2022-06-16 16:44 | disposition home or self-care (01) ==
LOC: ER 11:10
DX: E86.0 Dehydration (principal); T50.2X5A Adverse effect of carbonic-anhydrase inhibitors, benzothiadiazides and other diuretics, initial encounter; S16.1XXA Strain of muscle, fascia and tendon at neck level, initial encounter; Z95.810 Presence of automatic (implantable) cardiac defibrillator; E11.22 Type 2 diabetes mellitus with diabetic chronic kidney disease; N18.4 Chronic kidney disease, stage 4 (severe); Z79.01 Long term (current) use of anticoagulants; Z79.4 Long term (current) use of insulin; Z88.1 Allergy status to other antibiotic agents
CPT/HCPCS: 85025; 36415; 83735; 80185; 80053; 70450; 72125; 93880; J3360; J7050 ×2; 96361; 96365; 96366; 99285

== ENCOUNTER 2022-06-24 03:16 | Inpatient (IN) | payer OTHER ==
--- OUTSIDE RECORDS SUMMARY | 2022-06-24 03:25 | XMS REPORT | Continuity of Care Document ---
:1945 Author Organization [facility] t Address [address] [place] [address] [address] [place] [address] Care Team Providers Name Role Phone Sam Luque Primary Care Physician Elaine Lamb Attending Clinician Unavailable FAM CRAIG Attending Clinician Unavailable SILVERIO ADAM Attending Clinician Unavailable SRIRAM HEATH Attending Clinician Unavailable Sriram Heath MD Attending Clinician Doctor Unassigned, [place] Attending Clinician Unavailable 2, [facility] Attending [...] Clinician Unavailable DIANN GUY Attending Clinician Unavailable Dainn Guy MD Attending Clinician MITCHELL GARCIA Attending Clinician Unavailable MITCHELL GARCIA Attending Clinician Unavailable IBIKUNLELIZZIEO F Attending Clinician Unavailable Ibikunle SOLDERING TECHNICIAN, Folusho F Attending Clinician Major SQUIRES, Clare Combs Attending Clinician CLARE GONSALVES Attending Clinician Unavailable Tommy BURK, Luis Alberto Attending Clinician Unavailable Mitchell Garcia MD Attending Clinician Pob, [facility] Main Attending Clinician Unavailable Ortega Dorsey MD Attending Clinician [phone] ORTEGA DORSEY Attending Clinician Unavailable Cielo Bautista [...] GRAMM, SHANTEL A Attending Clinician Unavailable Gramm SOLDERING TECHNICIAN, Shantel A Attending Clinician Sabina Barba MD Attending Clinician SABINA BARBA Attending Clinician Unavailable Meka SCOTT, Ericka Attending Clinician ERICKA ACKERMAN Attending Clinician Unavailable Lab, Ang - Db Attending Clinician Unavailable VIRI PRICE Attending Clinician Unavailable Lab, [facility] Fam Pob I Attending Clinician Unavailable Jose SOLDERING TECHNICIAN, Karla Attending Clinician Dee SOLDERING TECHNICIAN, Viri Martinez Attending Clinician Teri Samano RN Attending Clinician Unavailable ERICH PANTOJA Attending Clinician Unavailable Pacemaker/Icd, [facility] Attending Clinician Unavailable Omole SOLDERING TECHNICIAN, Min Godinez Attending Clinician [phone] OMOLE, MIN TEEDANIELE Attending Clinician Unavailable Nita Degroot DO Attending Clinician NITA DEGROOT Attending Clinician Unavailable NITA DEGROOT Attending Clinician Unavailable Provider, [facility] Attending Clinician Unavailable Anny SOLDERING TECHNICIAN, Monica Attending Clinician MONICA BUTLER Attending Clinician Unavailable Calli BURK, Jo More Attending Clinician Unavailable Kirt Thomason DO Attending Clinician Gab Servin MD Attending Clinician GAB SERVIN Attending Clinician Unavailable Cielo Henry RN Attending Clinician Fam Craig MD Attending Clinician [phone] Edgar Cortés MD Attending Clinician [phone] EDGAR CORTÉS Attending Clinician Unavailable Lubna Lal MD Attending Clinician LUBNA LAL Attending Clinician Unavailable , [facility] Echo Room 1 - Attending Clinician Unavailable Visit, [facility] Nurse Attending Clinician Unavailable Dago Gross MD K.HKaren Attending Clinician , [facility] Vascular Room 1 - Attending Clinician Unavailable ALEXUS RAMOS Attending Clinician Unavailable ALEXUS RAMOS Attending Clinician Unavailable DAGO GROSS.H. Attending Clinician Unavailable EVAN MARTIN Attending Clinician Unavailable EKATERINA BOUDREAUX Attending Clinician Unavailable Nate GALAVIZPMadeleine Attending Clinician Emily Lezama Attending Clinician [facility], [facility] Heart Failure Cardio Attending Clinician Unavailjeremy rock 1, [facility] Lab Attending Clinician Unavailable FAM CRAIG Admitting Clinician Unavailable SILVERIO ADAM Admitting Clinician Unavailable BRII SAMSON Admitting Clinician Unavailable Brii Samson MD Admitting Clinician SIRRAM HEATH Admitting Clinician Unavailable CELIA HERNANDEZ Admitting [...] Effective Date Expiration Date S willkarthik BLAKE/SANDRA [id number] 2019 MEDICARE ADVANTAGE 00:00:00 [employer] CHOICE [id number] 2022 00:00:00 Problems Condition Condition Condition Status Onset Resolution Last Treating Co mments Source Name Details Category Date Date Treatment Clinician Date Pulmonary Pulmonary Disease Active 2021-02 Uni vers hypertensi hypertensi 2-31 it y of on on 00:00: [address] Presence Presence Disease Active 2021-02 Unive rs of cardiac of cardiac 2-30 it y of resynchron [place]ynchron [place] ization ization 00 Medical therapy therapy Branch defibrilla defibrilla 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) SOB SOB Disease Active 2021-02 Univers (shortness (shortness 2-29 it y of of breath) of breath) 00:00: [place] 00 Medical Branch Atrial Atrial Disease Active Univers tachycardi tachycardi 2-25 it y of a a 00:00: [address] Branch Dizziness Dizziness Disease Active 2022-0 [...] Added automatic ally from request for surgery [id number] Refusal of Refusal of Disease Active 2020-02 U nivers blood blood 2-13 ity of transfusio transfusio 00:00: [place] ns as ns as 00 Medical patient is patient is Br zenon Simpson's Jew Witness Osteopenia Osteopenia Disease Active 2020-02 U nivers 1-09 ity of 00:00: [place] 00 Medical Branch UTI UTI Disease Active 2019-02 Univers (urinary (urinary 0-08 ity of tract tract 00:00: [place] infection) infection) 00 Pa dical Branch Chronic Chronic Disease Active 2019-02 [...] Univers spells spells 0-19 ity of 00:00: [place] 00 Medical Branch Acute on Acute on Disease Active Unive rs chronic chronic 9-11 ity of anemia anemia 00:00: [place] 00 Medical Branch Atypical Atypical Disease Active Unive rs chest pain chest pain 5-09 it y of 00:00: [place] 00 Medical Branch Left arm Left arm Disease Active Unive rs pain pain 5-08 ity of 00:00: [place] 00 Medical Branch Arthritis Arthritis Disease Active 2019 Uni vers of lumbar of lumbar 1-07 ity of spine spine 00:00: [place] 00 Medical Branch Degenerati Degenerati Disease Active [...] Univers nausea nausea 2-26 ity of 00:00: [place] [address] Medical Branch Dysphagia Dysphagia Disease Active 2017-02 Uni vers 2-26 ity of 00:00: [place] [facility] Fatty Fatty Disease Active Univers liver liver 5- ity of 00:00: [place] [facility] Abnormal Abnormal Disease Active Unive rs LFTs LFTs 5- ity of 00:00: [place] [facility] Multiple Multiple Disease Active Overview: Un araseli renal renal 5- Formattin ity of cysts cysts 00:00: g of this note Medical might be Branch different from the original. Bosniak Type [address] Hyperkalem Hyperkalem Disease Active U nivers ia ia 5- ity of 00:00: [place] [facility] History of History of Disease Active U nivers colon colon 5- ity of polyps polyps 00:00: [place] [facility] History of History of Disease Active U nivers pulmonary pulmonary 2-17 ity of embolism embolism 00:00: [place] [facility] Branch ICD ICD Disease Active Univers (implantab (implantab 2-17 it y of le le 00:00: [place] cardiovert cardiovert 00 Me dical er-defibri er-defibri Br anch llator) in llator) in place place Atrial Atrial Disease Active Univers fibrillati fibrillati 1-16 it y of on on 00:00: [address] Branch Syncope Syncope Disease Active Univers 1-15 ity of 00:00: [address] Branch DM DM Disease Active Univers (diabetes (diabetes 8-31 ity of mellitus), mellitus), 00:[place] type 2 type 2 00 Medical with renal with renal Br anch complicati complicati ons ons Anxiety Anxiety Disease Active Univers ity of [facility] CKD CKD Disease Active Univers (chronic (chronic ity of kidney kidney [place] disease) disease) Medica l stage 4, stage 4, Branch GFR 15-29 GFR 15-29 ml/min ml/min Epilepsy Epilepsy Disease Active Unive rs ity of [facility] Esophageal Esophageal Disease Active U nivers reflux reflux ity of [facility] HLD HLD Disease Active Univers (hyperlipi (hyperlipi it y of demia) demia) [place] [facility] HTN HTN Disease Active Univers (hypertens (hypertens it y of ion) ion) [facility] Branch Non-ischem Non-ischem Disease Active U nivers [...] tobacco Passive smoker Un iversity of use [place] [facility] History SDOH University o f Alcohol Std Drinks [place] [facility] History SDOH University o f Alcohol Binge [place] [facility] al Branch History SDOH Social Unive rsity of [facility] Med ical Together Branch History SDOH Social Unive rsity of [facility] Medical Branch History SDOH Social Unive rsity of [facility] Medical Membership Branch History SDOH Social Unive rsity of [facility] Medical Meetings Branch Exposure to 2022-03-12 2022-03-22 Not sure University of SARS-CoV-2 (event) 00:00:00 07:50:00 [place] [facility] Alcohol intake 2022-03-14 2022-03-14 Current University of 00:00:00 00:00:00 non-drinker of [facility] alcohol Branch (finding) History SDOH 2022-02-17 2022-02-17 1 University o f Alcohol Frequency 00:00:00 00:00:00 [facility] [place] [facility] edical Branch History SDOH Social 2022-02-17 2022-02-17 5 Unive rsity of Connections Phone 00:00:00 00:00:00 [facility] [place] [facility] edical Branch History SDAZ Social 2022-02-17 2022-02-17 98 Unive rsity of Connections Living 00:00:00 00:00:00 [place] [facility] History SDOH 2022-02-17 2022-02-17 7 University o f Physical Activity 00:00:00 00:00:00 [facility] [place] [facility] edical DPW Branch History SDAZ 2022-02-17 2022-02-17 1 University o f Physical Activity 00:00:00 00:00:00 [facility] [place] [facility] edical MPS Branch History SDAZ 2022-02-17 2022-02-17 5 University o f Financial 00:00:00 00:00:00 [place] [facility] History SDAZ Food 2022-02-17 2022-02-17 1 Univers ity of Worry 00:00:00 00:00:00 [place] [facility] History SDAZ Food 2022-02-17 2022-02-17 1 Univers ity of Scarcity 00:00:00 00:00:00 [place] [facility] History SDAZ 2022-02-17 2022-02-17 2 University o f Transport Med 00:00:00 00:00:00 [place] Medic al Branch History [facility] 2022-02-17 2022-02-17 2 University o f Transport Non-Med 00:00:00 00:00:00 [facility] [place] [facility] edical Branch Tobacco use and 2022-02-16 2022-02-16 Smokeless Universit y of exposure 00:00:00 00:00:00 tobacco non-user [facility] dical Branch Tobacco Comment 2022-02-16 2022-02-16 exposed to "a Univer sity of 00:00:00 00:00:00 lot" of passive [place] Med ical smoke from Branch Sex [birth year] Universit y of 00:00:00 00:00:00 [facility] Smoking Status Start Date Stop Date Source Never smoked tobacco [facility] Medications Ordered Filled Start Stop Current Ordering Indication Dosage Frequency Signature Comments Components Source Medication Medication Date Date Medication? Clinician (SIG) Name Name metoprolol Yes [id number] 50mg Take 1 Univers succinate 2-07 tablet by ity o f XL 50 mg 24 00:00: mouth 2 [place] as hr tablet 00 (two) Medical times Branch daily. amiodarone Yes [id number] 200mg Take 1 Univers 200 mg 1-26 tablet by ity of tablet 00:00: mouth [place] 00 daily. Medical Branch amiodarone Yes [id number] 200mg Take 1 Univers 200 mg 1-26 tablet by ity of tablet 00:00: mouth [place] 00 daily. Medical Branch amiodarone Yes [id number] 200mg Take 1 Univers 200 mg 1-26 tablet by ity of tablet 00:00: mouth [place] 00 daily. Medical Branch amiodarone Yes [id number] 200mg Take 1 Univers 200 mg 1-26 tablet by ity of tablet 00:00: mouth [place] 00 daily. Medical Branch amiodarone Yes [id number] 200mg Take 1 Univers 200 mg 1-26 [...] day at 6am and 6pm furosemide Yes [id number] 40mg Take 1 Univers 40 mg 1-10 tablet by ity of tablet 00:00: mouth [place] 00 every Medical morning Branch and evening. metoprolol Yes [id number] 50mg Take 1 Univers succinate 1-10 tablet [...] s: atrial fibrillati on furosemide 2023-0 Yes [id number] 40mg Take 1 Univers 40 mg 1-10 tablet by ity of tablet 00:00: mouth [place] 00 every Medical morning Branch and evening. metoprolol 2022-0 Yes [id number] 50mg Take 1 Univers succinate 1-10 tablet [...] s: atrial fibrillati on furosemide 2022-0 Yes [id number] 40mg Take 1 Univers 40 mg 1-10 tablet by ity of tablet 00:00: mouth [place] 00 every Medical morning Branch and evening. metoprolol 2022-0 Yes [id number] 50mg Take 1 Univers succinate 1-10 tablet [...] s: atrial fibrillati on furosemide 0 Yes [id number] 40mg Take 1 Univers 40 mg 1-10 tablet by ity of tablet 00:00: mouth [place] 00 every Medical morning Branch and evening. metoprolol 2022-0 Yes [id number] 50mg Take 1 Univers succinate 1-10 tablet [...] s: atrial fibrillati on furosemide 2022-0 Yes [id number] 40mg Take 1 Univers 40 mg 1-10 tablet by ity of tablet 00:00: mouth [place] 00 every Medical morning Branch and evening. metoprolol 2022-0 Yes [id number] 50mg Take 1 Univers succinate 1-10 tablet [...] s: atrial fibrillati on furosemide 2022-0 Yes [id number] 40mg Take 1 Univers 40 mg 1-10 tablet by ity of tablet 00:00: mouth [place] 00 every Medical morning Branch and evening. metoprolol 2022-0 Yes [id number] 50mg Take 1 Univers succinate 1-10 tablet [...] s: atrial fibrillati on furosemide 2022-0 Yes [id number] 40mg Take 1 Univers 40 mg 1-10 tablet by ity of tablet 00:00: mouth [place] 00 every Medical morning Branch and evening. metoprolol 2022-0 Yes [id number] 50mg Take 1 Univers succinate 1-10 tablet [...] s: atrial fibrillati on furosemide 2022-0 Yes [id number] 40mg Take 1 Univers 40 mg 1-10 tablet by ity of tablet 00:00: mouth [place] 00 every Medical morning Branch and evening. apixaban 2022-0 Yes 1358 2.5mg Take 1 Univer s (ELIQUIS) 1-10 tablet by ity o f 2.5 mg 00:00: mouth 2 [place] tablet 00 (two) Medical times Branch daily. Indication s: atrial fibrillati on furosemide Yes [id number] 40mg Take 1 Univers 40 mg 1-10 tablet by ity of tablet 00:00: mouth [place] 00 every Medical morning Branch and evening. apixaban Yes 1358 2.5mg Take 1 Univer s (ELIQUIS) 1-10 tablet by ity o f 2.5 mg 00:00: mouth 2 [place] tablet 00 (two) Medical times Branch daily. Indication s: atrial fibrillati on metoprolol 2022- No [id number] 50mg Take 1 Univers succinate 1-10 02-06 tablet by ity of XL 50 mg 24 00:00: 00:00 mouth 2 [place] hr tablet 00 :00 (two) Medical times Branch daily. insulin NPH Yes [id number] 20U inject 20 Univers 100 unit/mL 1-02 Units ity of injection 00:00: under the [place] 00 skin every Medical morning. Branch insulin NPH Yes [id number] 20U inject 20 Univers 100 unit/mL 1-02 Units ity of injection 00:00: under the [place] 00 skin every Medical morning. Branch insulin NPH Yes [id number] 20U inject 20 Univers 100 unit/mL 1-02 Units ity of injection 00:00: under the [place] 00 skin every Medical morning. Branch insulin NPH 0 Yes [id number] 20U inject 20 Univers 100 unit/mL 1-02 Units ity of injection 00:00: under the [place] 00 skin every Medical morning. Branch insulin NPH 0 Yes [id number] 20U inject 20 Univers 100 unit/mL 1-02 Units ity of injection 00:00: under the [place] 00 skin every Medical morning. Branch insulin NPH 0 Yes [id number] 20U inject 20 Univers 100 unit/mL 1-02 Units ity of injection 00:00: under the [place] 00 skin every Medical morning. Branch insulin NPH 0 Yes [id number] 20U inject 20 Univers 100 unit/mL 1-02 Units ity of injection 00:00: under the [place] 00 skin every Medical morning. Branch insulin NPH 0 Yes [id number] 20U inject 20 Univers 100 unit/mL 1-02 Units ity of injection 00:00: under the [place] 00 skin every Medical morning. Branch insulin NPH 2022-0 Yes [id number] 20U inject 20 Univers 100 unit/mL 1-02 Units ity of injection 00:00: under the [place] 00 skin every Medical morning. Branch insulin NPH 2022-0 Yes [id number] 20U inject 20 Univers 100 unit/mL 1-02 Units ity of injection 00:00: under the [place] 00 skin every Medical morning. Branch insulin NPH 2022-0 Yes [id number] 20U inject 20 Univers 100 unit/mL 1-02 [...] 03:00: First dose [place] 00 on Sat [facility] 02/18/22 Branch at 2100, Until Discontinu ed, Routine insulin NPH 2022-0 Yes [id number] 15U inject 15 Univers 100 unit/mL 1- Units ity of injection 00:00: under the [place] 00 skin at Medical bedtime. Branch polyethylen 2022-0 Yes [id number] 17g Take 1 Univers e glycol 1 Packet by ity of 3350 17 00:00: mouth [place] gram powder 00 every 24 Medi sandra (twenty-fo Branch ur) hours as needed for Constipati on. insulin NPH 2022-0 Yes [id number] 15U inject 15 Univers 100 unit/mL 1-01 Units ity of injection 00:00: under the [place] 00 skin at Medical bedtime. Branch polyethylen 2022-0 Yes [id number] 17g Take 1 Univers e glycol 1-01 Packet by ity of 3350 17 00:00: mouth [place] gram powder 00 every 24 Medi sandra (twenty-fo Branch ur) hours as needed for Constipati on. insulin NPH 2022-0 Yes [id number] 15U inject 15 Univers 100 unit/mL 1-01 Units ity of injection 00:00: under the [place] 00 skin at Medical bedtime. Branch polyethylen 2022-0 Yes [id number] 17g Take 1 Univers e glycol 1-01 Packet by ity of 3350 17 00:00: mouth [place] gram powder 00 every 24 Medi sandra (twenty-fo Branch ur) hours as needed for Constipati on. insulin NPH 2022-0 Yes [id number] 15U inject 15 Univers 100 unit/mL 1-01 Units ity of injection 00:00: under the [place] 00 skin at Medical bedtime. Branch polyethylen 0 Yes [id number] 17g Take 1 Univers e glycol 1-01 Packet by ity of 3350 17 00:00: mouth [place] gram powder 00 every 24 Medi sandra (twenty-fo Branch ur) hours as needed for Constipati on. insulin NPH 0 Yes [id number] 15U inject 15 Univers 100 unit/mL 1-01 Units ity of injection 00:00: under the [place] 00 skin at Medical bedtime. Branch polyethylen 2022-0 Yes [id number] 17g Take 1 Univers e glycol 1-01 Packet by ity of 3350 17 00:00: mouth [place] gram powder 00 every 24 Medi sandra (twenty-fo Branch ur) hours as needed for Constipati on. insulin NPH 2022-0 Yes [id number] 15U inject 15 Univers 100 unit/mL 1-01 Units ity of injection 00:00: under the [place] 00 skin at Medical bedtime. Branch polyethylen 2022-0 Yes [id number] 17g Take 1 Univers e glycol 1-01 Packet by ity of 3350 17 00:00: mouth [place] gram powder 00 every 24 Medi sandra (twenty-fo Branch ur) hours as needed for Constipati on. insulin NPH Yes [id number] 15U inject 15 Univers 100 unit/mL 1-01 Units ity of injection 00:00: under the [place] 00 skin at Medical bedtime. Branch polyethylen 0 Yes [id number] 17g Take 1 Univers e glycol 1-01 Packet by ity of 3350 17 00:00: mouth [place] gram powder 00 every 24 Medi sandra (twenty-fo Branch ur) hours as needed for Constipati on. insulin NPH Yes [id number] 15U inject 15 Univers 100 unit/mL 1-01 Units ity of injection 00:00: under the [place] 00 skin at Medical bedtime. Branch polyethylen 0 Yes [id number] 17g Take 1 Univers e glycol 1-01 Packet by ity of 3350 17 00:00: mouth [place] gram powder 00 every 24 Medi sandra (twenty-fo Branch ur) hours as needed for Constipati on. insulin NPH Yes [id number] 15U inject 15 Univers 100 unit/mL 1-01 Units ity of injection 00:00: under the [place] 00 skin at Medical bedtime. Branch polyethylen 0 Yes [id number] 17g Take 1 Univers e glycol 1-01 Packet by ity of 3350 17 00:00: mouth [place] gram powder 00 every 24 Medi sandra (twenty-fo Branch ur) hours as needed for Constipati on. insulin NPH Yes [id number] 15U inject 15 Univers 100 unit/mL 1-01 Units ity of injection 00:00: under the [place] 00 skin at Medical bedtime. Branch polyethylen 0 Yes [id number] 17g Take 1 Univers e glycol 1-01 Packet by ity of 3350 17 00:00: mouth [place] gram powder 00 every 24 Medi sandra (twenty-fo Branch ur) hours as needed for Constipati on. insulin NPH 0 Yes [id number] 15U inject 15 Univers 100 unit/mL 1-01 Units ity of injection 00:00: under the [place] 00 skin at Medical bedtime. Branch polyethylen 2022-0 Yes [id number] 17g Take 1 Univers e glycol 1-01 Packet by ity of 3350 17 00:00: mouth [place] gram powder 00 every 24 Medi sandra (twenty-fo Branch ur) hours as needed for Constipati on. furosemide 2022- No [id number] 40mg Take 1 Univers 40 mg 02-19 tablet by ity of tablet 00:00: 05:59 mouth [place] 00 :00 every Medical morning Branch and evening for 30 days. furosemide 2022- No [id number] 40mg Take 1 Univers 40 mg 02-19 tablet by ity of tablet 00:00: 05:59 mouth [place] 00 :00 every Medical morning Branch and evening for 30 days. furosemide 2022- No [id number] 40mg Take 1 Univers 40 mg 02-19 tablet by ity of tablet 00:00: 00:00 mouth [place] 00 :00 every Medical morning Branch and evening for 30 days. furosemide 2022- No [id number] 40mg Take 1 Univers 40 mg 02-19 [...] Until Discontinu ed, Routine sulfur 2021-02- No [id number] 5mL 5 mL, Un araseil hexafluorid 02-17 9103 Intravenou i ty of e microsphr 15:00: 15:00 s, ONCE, 1 [place] (LUMASON) 00 :00 dose, On Medica l injection 5 Sun Branch mL 02/17/22 at 0900, Routine
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 member approving Restricted medication : SRIRAM HEATH polyethylen 2021-02 Yes 17g 17 g, Unive rs e glycol 2-30 Oral, ity of 3350 powder 05:09: [id number], [place] 17 g 36 Starting Medical on [place] Branch 02/16/22 at 2309, Until Discontinu ed, Routine, Constipati on phenytoin 2021-02 Yes 200mg 200 mg, Univ ers Extended 2-30 Oral, QHS, ity o f (DILANTIN 03:00: First dose [place] KAPSEAL) 00 on [facility] Medical capsule 200 02/16/22 Bran ch mg at 2100, Until Discontinu ed, Routine insulin NPH 2021-02 Yes 15U 15 Units, U nivers (HUMULIN N) 2-30 Subcutaneo it y of injection 03:00: [place], QHS, [place] 15 Units 00 First dose Medic al on [facility] Branch 02/16/22 at 2100, Until Discontinu ed, Routine atorvastati 2021-02 Yes 40mg 40 mg, Univ ers n (LIPITOR) 2-30 Oral, QHS, it y of tablet 40 03:00: First dose [place] mg 00 on [facility] 02/16/22 Branch at 2100, Until Discontinu ed, Routine levETIRAcet 2021-02 Yes 500mg 500 mg, Un araseli am (KEPPRA) 2-30 Oral, BID, it y of tablet 500 02:00: First dose [place] mg 00 on [facility] 02/16/22 Branch at 2000, Until Discontinu ed, Routine apixaban 2021-02 Yes 1358 5mg 5 mg, Univers (ELIQUIS) 2-30 Oral, BID, ity of tablet 5 mg 02:00: First dose [place] 00 on [facility] 02/16/22 Branch at 2000, Until Discontinu ed, Routine
Indicatio ns: Non-Valvul ar Atrial Fibrillati on furosemide 2021-02- No 40mg 40 mg, Univ ers (LASIX) 202-19 Slow IV ity of injection 02:00: 18:11 Push, [place] 40 mg 00 :42 Q12H, Medical First dose Branch on [facility] 02/16/22 at 2000, Until Discontinu ed, Routine metoprolol 2021-02- No 50mg 50 mg, Univ ers succinate 202-18 Oral, BID, ity of XL (TOPROL 02:00: 14:37 First dose [place] XL) tablet 00 :05 on [facility] Medical 50 mg 02/16/22 Branch at [...] Branch 02/16/22 at 1100, JACQUI semaglutide Yes [id number] .25mg inject Univers (OZEMPIC) 8-17 0.25 mg ity of 0.25 mg or 00:00: under the [place] 0.5 mg(2 00 skin Medical mg/1.5 mL) weekly. Branch PnIj semaglutide Yes [id number] .25mg inject Univers (OZEMPIC) 8-17 0.25 mg ity of 0.25 mg or 00:00: under the [place] 0.5 mg(2 00 skin Medical mg/1.5 mL) weekly. Branch PnIj semaglutide Yes [id number] .25mg inject Univers (OZEMPIC) 8-17 0.25 mg ity of 0.25 mg or 00:00: under the [place] 0.5 mg(2 00 skin Medical mg/1.5 mL) weekly. Branch PnIj semaglutide Yes [id number] .25mg inject Univers (OZEMPIC) 8-17 0.25 mg ity of 0.25 mg or 00:00: under the [place] 0.5 mg(2 00 skin Medical mg/1.5 mL) weekly. Branch PnIj semaglutide 2021-0 Yes [id number] .25mg inject Univers (OZEMPIC) 8-17 0.25 mg ity of 0.25 mg or 00:00: under the [place] 0.5 mg(2 00 skin Medical mg/1.5 mL) weekly. Branch PnIj semaglutide 2021-0 Yes [id number] .25mg inject Univers (OZEMPIC) 8-17 0.25 mg ity of 0.25 mg or 00:00: under the [place] 0.5 mg(2 00 skin Medical mg/1.5 mL) weekly. Branch VickiIj semaglutide 0 Yes [id number] .25mg inject Univers (OZEMPIC) 8-17 0.25 mg ity of 0.25 mg or 00:00: under the [place] 0.5 mg(2 00 skin Medical mg/1.5 mL) weekly. Branch VickiIj semaglutide 0 Yes [id number] .25mg inject Univers (OZEMPIC) 8-17 0.25 mg ity of 0.25 mg or 00:00: under the [place] 0.5 mg(2 00 skin Medical mg/1.5 mL) weekly. Branch VickiIj semaglutide 0 Yes [id number] .25mg inject Univers (OZEMPIC) 8-17 0.25 mg ity of 0.25 mg or 00:00: under the [place] 0.5 mg(2 00 skin Medical mg/1.5 mL) weekly. Branch PnIj semaglutide 0 Yes [id number] .25mg inject Univers (OZEMPIC) 8-17 0.25 mg ity of 0.25 mg [place] 00:00: under the [place] 0.5 mg(2 00 skin Medical mg/1.5 mL) weekly. Branch PnIj semaglutide 2021-0 Yes [id number] .25mg inject Univers (OZEMPIC) 8-17 0.25 mg ity of 0.25 mg or 00:00: under the [place] 0.5 mg(2 00 skin Medical mg/1.5 mL) weekly. Branch PnIj semaglutide 2021-0 Yes [id number] .25mg inject Univers (OZEMPIC) 8-17 0.25 mg ity of 0.25 mg or 00:00: under the [place] 0.5 mg(2 00 skin Medical mg/1.5 mL) weekly. Branch PnIj semaglutide 2-0 Yes [id number] .25mg inject Univers (OZEMPIC) 8-17 0.25 mg ity of 0.25 mg or 00:00: under the [place] 0.5 mg(2 00 skin Medical mg/1.5 mL) weekly. Branch PnIj semaglutide 2-0 Yes [id number] .25mg inject Univers (OZEMPIC) 8-17 0.25 mg [...] capsules in the evening. amLODIPine 2-0 Yes [id number] 10mg Take 1 U nivers 10 mg 6-13 tablet by ity of tablet 00:00: mouth [place] 00 daily. Medical Branch amLODIPine 2022-0 Yes [id number] 10mg Take 1 U nivers 10 mg 6-13 tablet by ity of tablet 00:00: mouth [place] 00 daily. Medical Branch amLODIPine 2022-0 Yes [id number] 10mg Take 1 U nivers 10 mg 6-13 tablet by ity of tablet 00:00: mouth [place] 00 daily. Medical Branch amLODIPine 2022-0 Yes [id number] 10mg Take 1 U nivers 10 mg 6-13 tablet by ity of tablet 00:00: mouth [place] 00 daily. Medical Branch amLODIPine 2022-0 Yes [id number] 10mg Take 1 U nivers 10 mg 6-13 tablet by ity of tablet 00:00: mouth [place] 00 daily. Medical Branch amLODIPine 2021-0 3- No [id number] 10mg Take 1 Univers 10 mg 6-13 01-10 tablet by ity of tablet 00:00: 00:00 mouth [place] 00 :00 daily. Medical Branch amLODIPine 2021-0 2022- No [id number] 10mg Take 1 Univers 10 mg 6-13 [...] s: atrial fibrillati on OXCARBAZEPI 2-0 Yes [id number] TAKE 1 Univers [place] 150 mg 3-08 TABLET 2 X ity of tablet 00:00: A DAY FOR [place] 00 1 WEEK Medical THEN 2 Branch TABS 2X DAY FOR 1 WEEK 3 TABLES 2XADAY OXCARBAZEPI 2022-0 Yes [id number] TAKE 1 Univers [place] 150 mg 3-08 TABLET 2 X ity of tablet 00:00: A DAY FOR [place] 00 1 WEEK Medical THEN 2 Branch TABS 2X DAY FOR 1 WEEK 3 TABLES 2XADAY OXCARBAZEPI 2022-0 Yes [id number] TAKE 1 Univers [place] 150 mg 3-08 TABLET 2 X ity of tablet 00:00: A DAY FOR [place] 00 1 WEEK Medical THEN 2 Branch TABS 2X DAY FOR 1 WEEK 3 TABLES 2XADAY OXCARBAZEPI 2022-0 Yes [id number] TAKE 1 Univers [place] 150 mg 3-08 TABLET 2 X ity of tablet 00:00: A DAY FOR [place] 1 WEEK Medical THEN 2 Branch TABS 2X DAY FOR 1 WEEK 3 TABLES 2XADAY OXCARBAZEPI 2022-0 Yes [id number] TAKE 1 Univers [place] 150 mg 3-08 TABLET 2 X ity of tablet 00:00: A DAY FOR [place] 1 WEEK Medical THEN 2 Branch TABS 2X DAY FOR 1 WEEK 3 TABLES 2XADAY OXCARBAZEPI 2022-0 Yes [id number] TAKE 1 Univers [place] 150 mg 3-08 TABLET 2 X ity of tablet 00:00: A DAY FOR [place] 1 WEEK Medical THEN 2 Branch TABS 2X DAY FOR 1 WEEK 3 TABLES 2XADAY OXCARBAZEPI 2022-0 Yes [id number] TAKE 1 Univers NE 150 mg 3-08 TABLET 2 X ity of tablet 00:00: A DAY FOR [place] 00 1 WEEK Medical THEN 2 Branch TABS 2X DAY FOR 1 WEEK 3 TABLES 2XADAY OXCARBAZEPI 2022-0 Yes [id number] TAKE 1 Univers NE 150 mg 3-08 TABLET 2 X ity of tablet 00:00: A DAY FOR [place] 1 WEEK Medical THEN 2 Branch TABS 2X DAY FOR 1 WEEK 3 TABLES 2XADAY OXCARBAZEPI 2022-0 Yes [id number] TAKE 1 [facility] NE 150 mg 3-08 TABLET 2 X ity of tablet 00:00: A DAY FOR [place] 1 WEEK Medical THEN 2 Branch TABS 2X DAY FOR 1 WEEK 3 TABLES 2XADAY OXCARBAZEPI 2022-0 Yes [id number] TAKE 1 [facility] [place] 150 mg 3-08 TABLET 2 X ity of tablet 00:00: A DAY FOR [place] 1 WEEK Medical THEN 2 Branch TABS 2X DAY FOR 1 WEEK 3 TABLES 2XADAY OXCARBAZEPI 2022-0 Yes [id number] TAKE 1 Univers [place] 150 mg 3-08 TABLET 2 X ity of tablet 00:00: A DAY FOR [place] 1 WEEK Medical THEN 2 Branch TABS 2X DAY FOR 1 WEEK 3 TABLES 2XADAY OXCARBAZEPI 2022-0 Yes [id number] TAKE 1 [facility] [place] 150 mg 3-08 TABLET 2 X ity of tablet 00:00: A DAY FOR [place] 1 WEEK Medical THEN 2 Branch TABS 2X DAY FOR 1 WEEK 3 TABLES 2XADAY OXCARBAZEPI 2022-0 Yes [id number] TAKE 1 [facility] [place] 150 mg 3-08 TABLET 2 X ity of tablet 00:00: A DAY FOR [place] 1 WEEK Medical THEN 2 Branch TABS 2X DAY FOR 1 WEEK 3 TABLES 2XADAY OXCARBAZEPI 2022-0 Yes [id number] TAKE 1 [facility] [place] 150 mg 3-08 TABLET 2 X ity of tablet 00:00: A DAY FOR [place] 1 WEEK Medical THEN 2 Branch TABS [...] 6am and 6pm insulin NPH 2021-0 Yes [id number] 10U inject Univers (NOVOLIN N 04-13 10-15 ity of NPH U-100 00:00: Units [place] INSULIN) 00 under the Medica l 100 unit/mL skin every Br anch injection evening. insulin NPH 0 Yes [id number] 10U inject Univers (NOVOLIN N 04-13 10-15 ity of NPH U-100 00:00: Units [place] INSULIN) 00 under the Medica l 100 unit/mL skin every Br anch injection evening. insulin NPH 0 Yes [id number] 10U inject Univers (NOVOLIN N 04-13 10-15 ity of NPH U-100 00:00: Units [place] INSULIN) 00 under the Medica l 100 unit/mL skin every Br anch injection evening. insulin NPH 3- No [id number] 10U inject Univers (NOVOLIN N 04-13 10-15 ity of NPH U-100 00:00: 00:00 Units [place] INSULIN) 00 :00 under the Medica l 100 unit/mL skin every Br anch injection evening. furosemide 2021-0 Yes [id number] 20mg Take 1 Univers 20 mg 1-27 tablet by ity of tablet 00:00: mouth [place] 00 daily. Medical Branch levETIRAcet 2021-0 Yes [id number] 500mg Take 1 Univers am 500 mg 1-27 tablet by ity o f tablet 00:00: mouth 2 [place] 00 (two) Medical times Branch daily. furosemide 2021-0 Yes [id number] 20mg Take 1 Univers 20 mg 1-27 tablet by ity of tablet 00:00: mouth [place] 00 daily. Medical Branch levETIRAcet 2021-0 Yes [id number] 500mg Take 1 Univers am 500 mg 1-27 tablet by ity o f tablet 00:00: mouth 2 [place] 00 (two) Medical times Branch daily. furosemide 2-0 Yes [id number] 20mg Take 1 Univers 20 mg 1-27 tablet by ity of tablet 00:00: mouth daily. Medical Branch levETIRAcet 2-0 Yes [id number] 500mg Take 1 Univers am 500 mg 1-27 tablet by ity o f tablet 00:00: mouth (two) Medical times Branch daily. levETIRAcet 2-0 Yes [id number] 500mg Take 1 Univers am 500 mg 1-27 tablet by ity o f tablet 00:00: mouth (two) Medical times Branch daily. levETIRAcet 2-0 Yes [id number] 500mg Take 1 Univers am 500 mg 1-27 tablet by ity o f tablet 00:00: mouth (two) Medical times Branch daily. levETIRAcet 2-0 Yes [id number] 500mg Take 1 Univers am 500 mg 1-27 tablet by ity o f tablet 00:00: mouth (two) Medical times Branch daily. levETIRAcet 2021-0 Yes [id number] 500mg Take 1 Univers am 500 mg 1-27 tablet by ity o f tablet 00:00: mouth (two) Medical times Branch daily. levETIRAcet 2-0 Yes [id number] 500mg Take 1 Univers am 500 mg 1-27 tablet by ity o f tablet 00:00: mouth (two) Medical times Branch daily. levETIRAcet 2-0 Yes [id number] 500mg Take 1 Univers am 500 mg 1-27 tablet by ity o f tablet 00:00: mouth (two) Medical times Branch daily. levETIRAcet 2-0 Yes [id number] 500mg Take 1 Univers am 500 mg 1-27 tablet by ity o f tablet 00:00: mouth (two) Medical times Branch daily. levETIRAcet 2-0 Yes [id number] 500mg Take 1 Univers am 500 mg 1-27 tablet by ity o f tablet 00:00: mouth (two) Medical times Branch daily. levETIRAcet 2-0 Yes [id number] 500mg Take 1 Univers am 500 mg 1-27 tablet by ity o f tablet 00:00: mouth 2 00 (two) Medical times Branch daily. levETIRAcet 2021-0 Yes [id number] 500mg Take 1 Univers am 500 mg 1-27 tablet by ity o f tablet 00:00: mouth 2 (two) Medical times Branch daily. levETIRAcet 2021-0 Yes [id number] 500mg Take 1 Univers am 500 mg 1-27 tablet by ity o f tablet 00:00: mouth 2 (two) Medical times Branch daily. furosemide 0 3- No [id number] 20mg Take 1 Univers 20 mg 1-27 02-19 tablet by ity of tablet 00:00: 00:00 mouth [place] 00 :00 daily. Medical Branch pantoprazol 0 Yes [id number] 40mg Take 1 Univers e 40 mg EC 1-21 tablet by ity of tablet 00:00: mouth 00 daily. Medical Branch pantoprazol 0 Yes [id number] 40mg Take 1 Univers e 40 mg EC 1-21 tablet by ity of tablet 00:00: mouth 00 daily. Medical Branch pantoprazol 0 Yes [id number] 40mg Take 1 Univers e 40 mg EC 1-21 tablet by ity of tablet 00:00: mouth 00 daily. Medical Branch pantoprazol 0 Yes [id number] 40mg Take 1 Univers e 40 mg EC 1-21 tablet by ity of tablet 00:00: mouth [place] 00 daily. Medical Branch pantoprazol 2021-0 Yes [id number] 40mg Take 1 Univers e 40 mg EC 1-21 tablet by ity of tablet 00:00: mouth [place] 00 daily. Medical Branch pantoprazol 0 Yes [id number] 40mg Take 1 Univers e 40 mg EC 1-21 tablet by ity of tablet 00:00: mouth 00 daily. Medical Branch pantoprazol 2021-0 Yes [id number] 40mg Take 1 Univers e 40 mg EC 1-21 tablet by ity of tablet 00:00: mouth [place] 00 daily. Medical Branch pantoprazol 2021-0 Yes [id number] 40mg Take 1 Univers e 40 mg EC 1-21 tablet by ity of tablet 00:00: mouth [place] 00 daily. Medical Branch pantoprazol 2021-0 Yes [id number] 40mg Take 1 Univers e 40 mg EC 1-21 tablet by ity of tablet 00:00: mouth [place] 00 daily. Medical Branch pantoprazol Yes [id number] 40mg Take 1 Univers e 40 mg EC 1-21 tablet by ity of tablet 00:00: mouth [place] 00 daily. Medical Branch pantoprazol 0 Yes [id number] 40mg Take 1 Univers e 40 mg EC 1-21 tablet by ity of tablet 00:00: mouth [place] 00 daily. Medical Branch pantoprazol 0 Yes [id number] 40mg Take 1 Univers e 40 mg EC 1-21 tablet by ity of tablet 00:00: mouth [place] 00 daily. Medical Branch pantoprazol 0 Yes [id number] 40mg Take 1 Univers e 40 mg EC 1-21 tablet by ity of tablet 00:00: mouth [place] 00 daily. Medical Branch pantoprazol Yes [id number] 40mg Take 1 Univers e 40 mg EC 1-21 tablet by ity of tablet 00:00: mouth [place] 00 daily. Medical Branch atorvastati 2020-02 Yes [id number] 40mg Take 1 Univers n 40 mg 2-14 tablet by ity of tablet 00:00: mouth at [place] 00 bedtime. Medical Branch insulin 2020-02 Yes 8U inject 8 Univer s regular 2-14 Units ity of human 00:00: under the [place] (NOVOLIN R 00 skin Medical REGULAR daily. Branch U-100 Daily at [facility]) 100 noon unit/mL injection atorvastati 2020-02 Yes [id number] 40mg Take 1 Univers n 40 mg 2-14 tablet by ity of tablet 00:00: mouth at [place] 00 bedtime. Medical Branch insulin 2020-02 Yes 8U inject 8 Univer s regular 2-14 Units ity of human 00:00: under the [place] (NOVOLIN R 00 skin Medical REGULAR daily. Branch U-100 Daily at [facility]) 100 noon unit/mL injection atorvastati 2020-02 Yes [id number] 40mg Take 1 Univers n 40 mg 2-14 tablet by ity of tablet 00:00: mouth at [place] 00 bedtime. Medical Branch insulin 2020-02 Yes 8U inject 8 Univer s regular 2-14 Units ity of human 00:00: under the [place] (NOVOLIN R 00 skin Medical REGULAR daily. Branch U-100 Daily at [facility]) 100 noon unit/mL injection atorvastati 2020-02 Yes [id number] 40mg Take 1 Univers n 40 mg 2-14 tablet by ity of tablet 00:00: mouth at [place] [address] bedtime. Medical Branch atorvastati 2020-02 Yes [id number] 40mg Take 1 Univers n 40 mg 2-14 tablet by ity of tablet 00:00: mouth at [place] [address] bedtime. Medical Branch atorvastati 2020-02 Yes [id number] 40mg Take 1 Univers n 40 mg 2-14 tablet by ity of tablet 00:00: mouth at [place] [address] bedtime. Medical Branch atorvastati 2020-02 Yes [id number] 40mg Take 1 Univers n 40 mg 2-14 tablet by ity of tablet 00:00: mouth at [place] [address] bedtime. Medical Branch atorvastati 2020-02 Yes [id number] 40mg Take 1 Univers n 40 mg 2-14 tablet by ity of tablet 00:00: mouth at [place] [address] bedtime. Medical Branch atorvastati 2020-02 Yes [id number] 40mg Take 1 Univers n 40 mg 2-14 tablet by ity of tablet 00:00: mouth at [place] [address] bedtime. Medical Branch atorvastati 2020-02 Yes [id number] 40mg Take 1 Univers n 40 mg 2-14 tablet by ity of tablet 00:00: mouth at [place] [address] bedtime. Medical Branch atorvastati 2020-02 Yes [id number] 40mg Take 1 Univers n 40 mg 2-14 tablet by ity of tablet 00:00: mouth at [place] [address] bedtime. Medical Branch atorvastati 2020-02 Yes [id number] 40mg Take 1 Univers n 40 mg 2-14 tablet by ity of tablet 00:00: mouth at [place] [address] bedtime. Medical Branch atorvastati 2020-02 Yes [id number] 40mg Take 1 Univers n 40 mg 2-14 tablet by ity of tablet 00:00: mouth at [place] [address] bedtime. Medical Branch atorvastati 2020-02 Yes [id number] 40mg Take 1 Univers n 40 mg 2-14 tablet by ity of tablet 00:00: mouth at [place] [address] bedtime. Medical Branch insulin 2020-02- No 8U inject 8 Unive rs regular 2-14 01-01 Units ity of human 00:00: 00:00 under the [place] (NOVOLIN R 00 :00 skin Medical REGULAR daily. Branch U-100 Daily at [facility]) 100 noon unit/mL injection Blood-Gluco Yes [...] Immunizations Ordered Filled Immunization Date Status Comments [facility] e Immunization Name Name Influenza Virus 2022-03-16 [...] 2020-12-03 Completed University o f Polysaccharide, 00:00:00 [place] Med ical PPSV23 (PNEUMOVAX) Branch Influenza Virus [...] Completed Universit y of Conjugate, PCV13 00:00:00 [facility] dical (Prevnar 13) Branch Pneumococcal 13 2019-12-19 Completed Universit y of Conjugate, PCV13 00:00:00 [facility] dical (Prevnar 13) Branch Pneumococcal 13 2019-12-19 Completed Universit y of Conjugate, PCV13 00:00:00 [facility] dical (Prevnar 13) Branch Pneumococcal 13 2019-12-19 Completed Universit y of Conjugate, PCV13 00:00:00 [facility] dical (Prevnar 13) Branch Pneumococcal 13 2019-12-19 Completed Universit y of Conjugate, PCV13 00:00:00 [facility] dical (Prevnar 13) Branch Pneumococcal 13 [...] Completed Universit y of Conjugate, PCV13 00:00:00 [facility] dical (Prevnar 13) Branch Pneumococcal 13 2019-12-19 Completed Universit y of Conjugate, PCV13 00:00:00 [facility] dical (Prevnar 13) Branch Pneumococcal 13 2019-12-19 Completed Universit y of Conjugate, PCV13 00:00:00 [facility] dical (Prevnar 13) Branch Influenza Virus 2019-11-22 Completed Universit y of Vaccine Recomb Quad 00:00:00 [place] Medical IM, Preserv and ABX Branc h Free 18-64 YRS Influenza Virus 2019-11-22 Completed Universit y of Vaccine Recomb Quad 00:00:00 [place] [facility] IM, Preserv and ABX Branc h [...] Universit y of Vaccine Recomb Quad 00:00:00 [place] [facility] IM, Preserv and ABX Branc h [...] Dosage 2018-03-25 Completed Unive rsity of 00:00:00 [place] [facility] HEP B, Adult Dosage 2018-03-25 Completed Unive rsity of 00:00:00 [facility] Branch HEP B, Adult Dosage 2018-03-25 Completed Unive rsity of 00:00:00 [place] [facility] HEP B, Adult Dosage 2018-03-25 Completed Unive rsity of 00:00:00 [place] [facility] HEP B, Adult Dosage 2018-03-25 Completed Unive rsity of 00:00:00 [place] [facility] HEP B, Adult Dosage 2018-03-25 Completed Unive rsity of 00:00:00 [place] [facility] HEP B, Adult Dosage 2018-03-25 Completed Unive rsity of 00:00:00 [place] [facility] HEP B, Adult Dosage 2018-03-25 Completed Unive rsity of 00:00:00 [place] [facility] HEP B, Adult Dosage 2018-03-25 [...] Dosage 2017-09-05 Completed Unive rsity of 00:00:00 [place] [facility] HEP B, Adult Dosage 2017-09-05 Completed Unive rsity of 00:00:00 [place] [facility] HEP B, Adult Dosage 2017-09-05 Completed Unive rsity of 00:00:00 [place] [facility] HEP B, Adult Dosage 2017-09-05 Completed Unive rsity of 00:00:00 [facility] Pneumococcal 13 2015-02-19 Completed [...] ical PPSV23 (PNEUMOVAX) Branch Pneumococcal 2011-02-19 Completed [place] o f Polysaccharide, 00:00:00 [place] Med ical PPSV23 (PNEUMOVAX) Branch Pneumococcal 2011-02-19 Completed [place] o f Polysaccharide, 00:00:00 [place] Med ical PPSV23 (PNEUMOVAX) Branch Vital Signs Vital Name Observation Time Observation Value Comments Source Systolic blood 2022-03-16 14:28:00 128 mm[Hg] Univer sity of [facility] Diastolic blood 2022-03-16 14:28:00 70 [facility]Hg[facility] Heart rate 2022-03-16 14:28:00 93 /min [facility] Body temperature 2022-03-16 14:28:00 35.67 Lizz [facility] Respiratory rate 2022-03-16 14:28:00 17 /min [facility] Body weight 2022-03-16 14:28:00 81.058 kg [facility] BMI 2022-03-16 14:28:00 34.90 kg/m2 [facility] Oxygen saturation in 2022-03-16 14:28:00 98 /min [facility] Arterial blood by [facility] [place] [facility] Pulse oximetry Branch Systolic blood 2022-03-14 19:37:00 138 mm[Hg] Univer sity of [facility] Diastolic blood 2022-03-14 19:37:00 87 mm[Hg] Unive rsity of [facility] Heart rate 2022-03-14 19:37:00 94 /min [facility] Respiratory rate 2022-03-14 19:37:00 20 /min [facility] Body height 2022-03-14 19:37:00 152.4 cm [facility] Body weight 2022-03-14 19:37:00 80.74 kg [facility] BMI 2022-03-14 19:37:00 34.76 kg/m2 Universi ty of [place] [facility] Oxygen saturation in 2022-03-14 19:37:00 99 /min University of Arterial blood by [facility] [place] [facility] Pulse oximetry Branch Systolic blood 2022-02-28 14:57:00 130 mm[Hg] Univer sity of pressure [place] [facility] Diastolic blood 2022-02-28 14:57:00 83 mm[Hg] Unive rsity of pressure [place] [facility] Heart rate 2022-02-28 14:57:00 117 /min Universi ty of [place] [facility] Respiratory rate 2022-02-28 14:57:00 20 /min Univ ersity of [place] [facility] Body height 2022-02-28 14:57:00 152.4 cm Universi ty of [place] [facility] Body weight 2022-02-28 14:57:00 80.377 kg Universi ty of [place] [facility] BMI 2022-02-28 14:57:00 34.61 kg/m2 Universi ty of [place] [facility] Oxygen saturation in 2022-02-28 14:57:00 99 /min University of Arterial blood by [facility] [place] [facility] Pulse oximetry Branch Systolic blood 2022-02-19 17:58:00 140 mm[Hg] Univer sity of pressure [place] [facility] Diastolic blood 2022-02-19 17:58:00 95 mm[Hg] Unive rsity of pressure [place] [facility] Heart rate 2022-02-19 17:58:00 115 /min Universi ty of [place] [facility] Body temperature 2022-02-19 13:46:00 36.78 Lizz Univ ersity of [place] [facility] Respiratory rate 2022-02-19 13:46:00 18 /min Univ ersity of [place] [facility] Oxygen saturation in 2022-02-19 13:46:00 94 /min University of Arterial blood by [facility] [place] [facility] Pulse oximetry Branch Body weight 2022-02-18 10:44:00 83.462 kg Universi ty of [place] [facility] BMI 2022-02-18 10:44:00 35.94 kg/m2 Universi ty of [place] [facility] Systolic blood 2022-02-16 16:07:00 116 mm[Hg] Univer sity of pressure [place] [facility] Diastolic blood 2022-02-16 16:07:00 71 mm[Hg] Unive rsity of [facility] Heart rate 2022-02-16 16:07:00 85 /min [facility] Body temperature 2022-02-16 16:07:00 36.89 Lizz [facility] 2022-02-16 16:07:00 17 /min [facility] Body weight 2022-02-16 16:07:00 84.823 kg [facility] BMI 2022-02-16 16:07:00 36.52 kg/m2 [facility] Oxygen saturation in 2022-02-16 16:07:00 96 /min [facility] Arterial blood by [facility] [place] [facility] Pulse oximetry [place] Systolic blood 2021-10-05 15:13:00 152 mm[Hg] Univer sity of [facility] Diastolic blood 2021-10-05 15:13:00 77 [facility]Hg[facility] 2021-10-05 15:12:00 152.4 cm [facility] Body weight 2021-10-05 15:12:00 88.315 kg [facility] BMI 2021-10-05 15:12:00 38.02 kg/m2 [facility] Procedures Procedure Date / Time Performing Clinician Source Performed AUTHORIZATION FOR RELEASE 2022-03-23 06:01:00 Doctor Unassigned, [facility] [place] [facility] FLU 2022-03-16 14:43:42 Silverio Adam [facility] VACC(),65+YR,0.5 Medica l Branch ML,IM,ADJUVANTED,QUAD(FLU AD) POCT GLUCOSE (AUTOMATED) 2022-02-19 17:59:00 Brii Samson [facility] XR CHEST 2 VW 2022-02-19 16:23:57 Sriram Heath [facility] POCT GLUCOSE (AUTOMATED) 2022-02-19 13:45:00 Brii Samson [facility] MAGNESIUM 2022-02-19 12:23:00 Rocael Vaughan [facility] BASIC METABOLIC PANEL 2022-02-19 12:23:00 Rocael Vaughan [facility] (NA, K, CL, CO2, GLUCOSE, Medica l Branch BUN, CREATININE, CA) CBC WITH DIFF 2022-02-19 12:23:00 Rocael Vaughan [facility] N-TERMINAL PRO-BNP 2022-02-19 12:23:00 Rocael [facility] POCT GLUCOSE (AUTOMATED) 2022-02-19 07:07:00 OvMarcie youngi Uni [facility] POCT GLUCOSE (AUTOMATED) 2022-02-19 06:10:00 [facility] 2022-02-19 03:34:00 OvEdwardo younglani Uni [facility] POCT GLUCOSE (AUTOMATED) 2022-02-18 23:14:00 OvEdwardo younglani Uni [facility] POCT GLUCOSE (AUTOMATED) 2022-02-18 17:29:00 Ovhannah Brii [facility] POCT GLUCOSE (AUTOMATED) 2022-02-18 13:40:00 Chapin Brii [facility] BASIC METABOLIC PANEL 2022-02-18 10:53:00 Rocael Vaughan [facility] (NA, K, CL, CO2, GLUCOSE, Medica l Branch BUN, CREATININE, CA) LIPID PANEL ([id number])(TOTAL 2022-02-18 10:53:00 [facility] Branch TRIGLYCERIDES, HDL) CBC WITH DIFF 2022-02-18 10:53:00 [facility] 2022-02-18 10:53:00 Rocael [facility] POCT GLUCOSE (AUTOMATED) 2022-02-18 02:34:00 OvMarcie youngi Uni [facility] POCT GLUCOSE (AUTOMATED) 2022-02-17 22:16:00 Ovhannah Brii [facility] POCT GLUCOSE (AUTOMATED) 2022-02-17 17:45[facility]00 [facility] 2022-02-17 14:01:00 Chapin [facility] TRANSTHORACIC ECHO (TTE) 2022-02-17 13:56:00 Chapin [facility] COMPLETE W/ CONTRAST Medical Bra nch MAGNESIUM 2022-02-17 09:47:00 Chapin [facility] BASIC METABOLIC PANEL 2022-02-17 09:47:00 Chapin [facility] (NA, K, CL, CO2, GLUCOSE, Medica l Branch BUN, CREATININE, CA) N-TERMINAL PRO-BNP 2022-02-17 09:47:00 Chapin [facility] POCT GLUCOSE (AUTOMATED) 2022-02-17 03:55:00 Chapin [facility] POCT GLUCOSE (AUTOMATED) 2022-02-17 03:16:00 Chapin [facility] URINALYSIS 2022-02-16 18:07:[address] [facility] XR CHEST 1 VW 2022-02-16 17:06:[address] [facility] LIPASE 2022-02-16 16:59:[address] [facility] TROPONIN I 2022-02-16 16:59:[address] [facility] HEPATIC FUNCTION PANEL 2022-02-16 16:59:[address] [facility] ([id number]) (ALB,T.PRO,BILI [facility] T,BU/BC,ALT,AST,ALK PHOS) BASIC METABOLIC PANEL 2022-02-16 16:59:00 Bird, [facility] (NA, K, CL, CO2, GLUCOSE, Medica l Branch BUN, CREATININE, CA) CBC WITH DIFF 2022-02-16 16:59:[address] [facility] GLYCOSYLATED HEMOGLOBIN 2022-02-16 16:59:00 Chapin [facility] (A1C) [facility] N-TERMINAL PRO-BNP 2022-02-16 16:59:00 Marina Pang [facility] y of [facility] COVID-19 (ID NOW RAPID 2022-02-16 16:59:00 Marina Pang [facility] TESTING) Medical Branch LAB ONLY COVID 2022-02-16 16:59:00 Marina Pang [facility] [place] INTERPRETATION [facility] HB ECG ROUTINE & RHYTHM 2022-02-16 16:52:36 Marina Pang [facility] CONSENT/REFUSAL FOR 2022-02-16 16:40:37 Doctor Unassigned, [facility] DIAGNOSIS AND TREATMENT [place] [facility] POCT HEMOGLOBIN A1C TEST 2021-10-05 15:15:00 Amita Gomez [facility] Encounters Start End Encounter Admission Attending Care Care Encounter Source Date/Time Date/Time Type Type Clinicians Facility Department ID 2022-06-14 Outpatient Lamb, [facility] [id number] Common 12:46:01 Elaine [id number] [facility] 2022-06-02 Outpatient Lamb, [facility] [id number] Common 14:48:01 Elaine [id number] [facility] 2020-12-17 Emergency [facility] [id number] Univers 21:39:43 [facility] 2020-12-17 Inpatient [facility] [id number] Univers 18:26:55 alvino BARAKAT [facility] 2020-12-17 Emergency [facility] [id number] Univers 16:06:19 [facility] 2022-06-15 2022-06-15 Outpatient Moustapha ADAM [facility] [id number] Univers 09:00:00 09:00:00 SILVERIO [facility] 2022-04-27 2022-04-27 Outpatient Moustapha HEATH [facility] [id number] Univers 10:20:00 10:20:00 SRIRAM grove [facility] 2022-03-27 2022-03-27 Refisra Heath [facility] 1.2.840.114 [id number] Univers 00:00:00 00:00:00 Qiachaim PALOMO 350.1.13.10 ity of [facility] [place] [phone] Pa dical NAL 059 [employer] 2022-03-23 2022-03-23 Orders Doctor YANA 1.2.840.114 [id number] Univers 00:00:00 00:00:00 Only Unassigned, CARLOS 350.1.13.10 [facility] 4.2.7.2.686 Bernabe as [id number] [address] 2022-03-22 2022-03-22 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2, Adc Lab [facility] 1.2.840.114 [id number] Univers 08:00:00 08:15:00 Visit Kia Silverio LENORAWAQAS 350.1.13.10 ity of [facility] [place] [id number] Pa dicut NAL 353 [employer] 2022-03-22 2022-03-22 [facility] [id number] Univers 08:00:00 08:00:00 SILVERIO ity [facility] 2022-03-16 2022-03-16 [facility] [id number] Univers 08:40:00 09:58:33 SILVERIO ity [facility] 2022-03-16 2022-03-16 [facility] 1.2.840.114 [id number] Univers 08:40:00 09:00:00 [facility] 350.1.13.10 i ty [facility] 4.[place] [phone] Pa dical NAL 059 [employer] 2022-03-14 2022-03-14 Office [facility] 1.2.840.114 [id number] Univers 13:40:00 14:00:00 Visit Sriram COOLEYWAQAS 350.1.13.10 ity of [facility] 4.2.[place].2.[place] [phone] Pa dical NAL [address] [place] [address] 2022-03-14 2022-03-14 Outpatient R KUMAR, [facility] [id number] Univers 13:40:00 13:40:00 SRIRAM de oliveira o f [facility] 2022-03-09 2022-03-09 Outpatient R INEZANI, [facility] [id number] Univers 09:59:09 23:59:00 SILVERIO ity of [facility] 2022-02-28 2022-02-28 Outpatient R KUMAR, [facility] [id number] Univers 09:00:00 09:16:53 SRIRAM de oliveira o f [facility] 2022-02-28 2022-02-28 Office Kumar, [facility] 1.2.840.114 [id number] Univers 09:00:00 09:16:53 Visit Sriram [place]O 350.1.13.10 ity of [place] [id number] Pa dical NAL 9 [employer] 2022-02-21 2022-02-21 Transition JONO Galvan 1.2.840.114 [id number] Univers 00:00:00 00:00:00 of Care Nara MG 350.1.13.10 it y of [place].2.7.2.[place] [id number] [facility] [address] 2022-02-16 2022-02-19 Inpatient X CHAPIN [facility] SAMI [id number] Univers 10:48:00 16:07:00 BRII ity of [facility] 2022-02-16 2022-02-19 Hospital Bird Jose ManuelLeilani [facility] 1.2.840.11 [id number] Univers 10:48:00 16:07:00 Encounter Brii Samson 350.1.13.10 ity of [facility] 4.2.7[place]2.[place] [id number] [facility] [address] 2022-02-16 2022-02-16 Urgent Fang Perez [facility] 1.2.840.114 [id number] Univers 09:45:00 10:05:00 Care Unknown, Attending HEALTH 350.1.13.10 ity of [place] 4.2.7.2.686 Bernabe as HUMPHREY?BLEA [phone] Pa sherif [facility] [address] MEDICAL OFFICE BUILDING 2022-02-16 2022-02-16 Outpatient R CASSI [facility] [id number] Univers 09:45:00 09:45:00 FANG itkelsie [facility] 2022-01-31 2022-01-31 Outpatient R KUMAR [facility] [id number] Univers 14:20:00 14:20:00 SRIRAM de oliveira o maine [facility] 2022-01-31 2022-01-31 Outpatient R KUMAR [facility] [id number] Univers 14:20:00 14:20:00 SRIRAM de oliveira o maine [facility] 2021-12-02 2021-12-02 [facility] [id number] Univers 10:20:00 10:20:00 [facility] 2021-11-25 2021-11-25 [facility] [id number] Univers 10:20:00 10:20:00 SILVERIO [facility] 2021-11-25 2021-11-25 Outpatient R KIA [facility] [id number] Univers 10:20:00 10:20:00 [facility] 2021-10-05 2021-10-05 Outpatient R JASON LEVI [facility] [id number] Univers 10:30:00 11:22:11 AMITA GOMEZ [facility] 2021-10-05 2021-10-05 Office Amita Gomez [facility] 1.2.840.114 [id number] Univers 10:30:00 11:22:11 Visit HEALTH 350.1.13.10 it y of [place] 4.2.7.2.686 Bernabe as HUMPHREY?BLEA [phone] Pa sherif KELSI [address] MEDICAL OFFICE BUILDING 2021-09-21 2021-09-21 Telephone [facility] 1.2.854.378 [id number] Univers 00:00:00 00:00:00 Wentong HEALTH 350.1.13.10 it y of [place] 4.2.7.2.686 Bernabe as HUMPHREY?BLEA [phone] Pa dical KNEY [address] MEDICAL OFFICE BUILDING 2021-08-19 2021-08-19 Outpatient R SEWANI, [facility] [id number] Univers 11:20:00 11:20:00 SILVERIO [facility] 2021-08-16 2021-08-16 Outpatient R CASTLE, [facility] [id number] Univers 13:00:00 13:00:00 WENTONG [facility] 2021-08-01 2021-08-01 Office Kumar, [facility] 1.2.840.114 [id number] Univers 13:40:00 14:02:37 Visit Sriram PALOMO 350.1.13.10 ity jarek [place] [phone] Pa sherif NAL [address] [facility] 2021-08-01 2021-08-01 Outpatient R KUMAR, [facility] [id number] Univers 13:40:00 14:02:37 SRIRAM fergusony o [facility] 2021-08-01 2021-08-01 Outpatient R KUMAR, [facility] [id number] Univers 13:40:00 13:40:00 SRIRAM fergusony o [facility] 2021-08-01 2021-08-01 Outpatient R KUMAR, [facility] [id number] Univers 13:40:00 13:40:00 SRIRAM fergusony o [facility] 2021-08-01 2021-08-01 Outpatient R KUMAR, [facility] [id number] Univers 13:40:00 13:40:00 SRIRAM fergusony o [facility] 2021-08-01 2021-08-01 Outpatient R KUMAR, [facility] [id number] Univers 13:40:00 13:40:00 SRIRAM ity o [facility] 2021-07-22 2021-07-22 Refill Kumar, [facility] 1.2.840.114 [id number] Univers 00:00:00 00:00:00 Sriram PALOMO 350.1.13.10 ity jarek [place] [phone] Pa dical NAL 9 [employer] 2021-06-24 2021-06-24 Outpatient R KIA [facility] [id number] Univers 10:00:00 10:46:29 [facility] 2021-06-24 2021-06-24 Office [facility] 1.2.840.114 [id number] Univers 10:00:00 10:20:00 Visit Silverio PALOMO 350.1.13.10 i ty of [facility] 4.2.7.2.686 [place] PROFESSIO [phone] Pa dical NAL [address] [place] [address] 2021-06-24 2021-06-24 Outpatient R KIA, [facility] [id number] Univers 10:00:00 10:00:00 SILVERIO ity [facility] 2021-06-24 2021-06-24 [facility] [id number] Univers 10:00:00 10:00:00 SILVERIO [facility] 2021-06-10 2021-06-10 [facility] [id number] Univers 10:46:49 23:59:00 [facility] 2021-05-23 2021-05-23 Outpatient R KUMAR, [facility] [id number] Univers 15:00:00 15:00:00 SRIRAM ity o [facility] 2021-05-04 2021-05-04 Outpatient R KUMAR, [facility] [id number] Univers 08:00:00 23:59:00 QIANGJUN ity o f [facility] 2021-05-04 2021-05-04 Outpatient R KUMAR, [facility] [id number] Univers 08:00:00 08:00:00 DIMITRIJUN ity o f [facility] 2021-04-28 2021-04-28 Outpatient R BROOKS [facility] [id number] Univers 13:00:00 14:03:10 DIANN alvino [facility] 2021-04-28 2021-04-28 Office [facility] 1.2.052.857 [id number] Univers 13:00:00 14:03:10 Visit Diann PALOMO 350.1.13.10 i ty [facility] [place].2.7.2.[place] [facility] [phone] Pa dical [facility] [address] [employer] 2021-04-22 2021-04-22 Outpatient MITCHELL TORRES [facility] [id number] Univers 15:40:00 15:40:00 MITCHELL GARCIA kelsie [facility] 2021-04-22 2021-04-22 Outpatient Moustapha JOSE, MITCHELL [facility] [id number] Univers 15:40:00 15:40:00 MITCHELL GARCIA [facility] 2021-04-22 2021-04-22 Outpatient Moustapha JOSEMITCHELL Rock [facility] [id number] Univers 15:40:00 15:40:00 MITCHELL GARCIA [facility] 2021-04-18 2021-04-19 Emergency X [facility]EDY [facility] ERT [id number] Univers 22:42:00 02:27:00 FOLUSHO ity [facility] 2021-04-18 2021-04-19 Emergency [facility] 1.2.840.114 [id number] Univers 22:42:00 02:27:00 Celia PALOMO 350.1.13.10 ity [facility] 4.2.7.2.[place] [id number] [facility] [address] 2021-04-18 2021-04-19 Emergency [facility] [id number] Univers 22:42:00 02:27:00 FOLUSHO ity [facility] 2021-04-18 2021-04-18 Orders Doctor YANA 1.2.840.114 [id number] Univers 00:00:00 00:00:00 Only Unassigned, CARLOS 350.1.13.[address] [place] [facility] 4.2.7.2.686 Bernabe as [id number] [facility] [address] 2021-04-15 2021-04-15 [facility] 1.2.028.038 [id number] Univers 12:42:22 23:59:00 Encounter Clare PALOMO 350.1.13.10 ity of [facility] 4.2.7.2.[place] [id number] [facility] [address] 2021-04-15 2021-04-15 Outpatient R KUMAR [facility] [id number] Univers 10:00:00 10:33:44 SRIRAM ity o f [facility] 2021-04-15 2021-04-15 Office [facility] 1.2.840.114 [id number] Univers 10:00:00 10:33:44 Visit [facility]ir[facility] 350.1.13.10 ity of [facility] 4.2.7.2.686 [place] [facility] [phone] Pa dical NAL 059 [employer] 2021-04-15 2021-04-15 Outpatient R KUMAR [facility] [id number] Univers 10:00:00 10:33:44 SRIRAM ity o [facility] 2021-04-15 2021-04-15 Outpatient R MAJOR [facility] [id number] Univers 00:00:00 00:00:00 WONDIFUL ity o f [facility] 2021-04-15 2021-04-15 Orders Doctor YANA 1.2.840.114 [id number] Univers 00:00:00 00:00:00 Only Unassigned, CARLOS 350.1.13.[address] [place] [facility] 4.2.7.2.686 Bernabe as [id number] [facility] [address] [place] 2021-04-13 2021-04-13 Outpatient R TIN [facility] [id number] Univers 10:00:00 11:12:56 WENTONG ity of [facility] 2021-04-13 2021-04-13 Office [facility] 1.2.840.114 [id number] Univers 10:00:00 11:12:56 Visit [facility] 350.1.13.10 it y of [place] 4.2.7.2.686 Bernabe as HUMPHREY?BLEA [id number] Pa dical KNEY [address] MEDICAL OFFICE BUILDING 2021-04-13 2021-04-13 Outpatient R TIN [facility] [id number] Univers 10:00:00 11:12:56 [facility] 2021-04-13 2021-04-13 Outpatient R TIN [facility] [id number] Univers 10:00:00 10:00:00 WENTONG ity [facility] 2021-04-13 2021-04-13 Outpatient R TIN [facility] [id number] Univers 10:00:00 10:00:00 WENTONG ity [facility] 2021-04-13 2021-04-13 Outpatient R TIN [facility] [id number] Univers 10:00:00 10:00:00 WENTONG ity [facility] 2021-04-12 2021-04-12 Nurse YANA Sanders 1.2.125.784 [id number] Univers 00:00:00 00:00:00 Triage Luis Alberto RENEE 350.1.13.[address] [facility] 4.2.7.2.686 Bernabe as [id number] [address] 2021-04-07 2021-04-07 Telephone [facility] 1.2.082.735 [id number] Univers 00:00:00 00:00:00 Sriram PALOMO 350.1.13.10 ity of [place] [id number] Pa dical NAL [address] [place] [address] 2021-04-01 2021-04-01 [facility] [id number] Univers 10:00:00 10:40:52 SILVERIO ity [facility] 2021-04-01 2021-04-01 Office [facility] 1.2.840.114 [id number] Univers 10:00:00 10:40:52 Visit Silverio [place] 350.1.13.10 i ty of [place] 4.2.7.2.[place] [id number] Pa dical NAL [address] [place] [address] 2021-03-30 2021-03-30 Telephone [facility] 1.2.840.114 [id number] Univers 00:00:00 00:00:00 [facility] 350.1.13.10 ity of [place] 4.2.7.2.686 Bernabe as HUMPHREY?BLEA [id number] Pa sherif HOLLAND [address] [place] [address] 2021-03-30 2021-03-30 Telephone Jose [facility] 1.2.840.114 [id number] Univers 00:00:00 00:00:00 [facility] 350.1.13.10 ity of [place] 4.2.7.2.686 Bernabe as HUMPHREY?BLEA [phone] Pa sherif HOLLAND [address] [place] [address] 2021-03-29 2021-03-29 Outpatient MITCHELL TORRES [facility] [id number] Univers 08:00:00 09:38:08 MITCHELL GARCIA [facility] 2021-03-29 2021-03-29 Outpatient MITCHELL TORRES [facility] [id number] Univers 08:00:00 09:38:08 MITCHELL GARCIA [facility] 2021-03-29 2021-03-29 Outpatient MITCHELL TORRES [facility] [id number] Univers 08:00:00 08:00:00 MITCHELL GARCIA [facility] 2021-03-29 2021-03-29 Orders Doctor YANA 1.2.840.114 [id number] Univers 00:00:00 00:00:00 Only Unassigned, CARLOS 350.1.13.10 [facility] 4.2.7.2.686 Bernabe as [id number] [address] 2021-03-23 2021-03-23 Outpatient Moustapha HEATH [facility] [id number] Univers 15:40:00 16:06:08 SRIRAM de oliveira o f [facility] 2021-03-23 2021-03-23 Office [facility] 1.2.840.114 [id number] Univers 15:40:00 16:06:08 Visit Sriram PALOMO 350.1.13.10 ity [facility] 4.2.7.2.[place] [id number] Pa sherif ANDERSON 059 [employer] 2021-03-23 2021-03-23 Outpatient Moustapha HEATH [facility] [id number] Univers 16:00:00 16:00:00 SRIRAM alvino o f [facility] 2021-03-22 2021-03-22 Telephone Brooks [facility] 1.2.840.114 [id number] Univers 00:00:00 00:00:00 Diann DEWEY 350.1.13.10 i ty of [place] 4.2.7.2.[place] [id number] Pa dical NAL 188 [employer] 2021-03-21 2021-03-21 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[place], Adc Lab Main [facility] 1.2.8 40.114 [id number] Univers 14:45:00 15:00:00 [facility] 350.1 .13.10 ity of [place] 4.2.7.2.[place] [id number] Pa dical NAL 353 [employer] 2021-03-21 2021-03-21 Outpatient R [facility] [id number] Univers 14:45:00 14:45:00 [facility] 2021-03-21 2021-03-21 Outpatient R [facility] [id number] Univers 14:45:00 14:45:00 [facility] 2021-03-21 2021-03-21 Orders Doctor MILLAN 1.2.840.114 [id number] Univers 00:00:00 00:00:00 Only Unassigned, CARLOS 350.1.13.[address] [place] [facility] 4.2.7.2.686 Bernabe as [id number] [facility] [address] [place] 2021-03-21 2021-03-21 Telephone JonathanrussellGLENNA 1.2.840.114 [id number] Univers 00:00:00 00:00:00 [facility] 350.1.13.10 i ty of [facility] 4.2.7.2.686 [place] [id number] [facility] [address] [place] 2021-03-20 2021-03-20 Nurse YANA Bautista 1.2.840.114 [id number] Univers 00:00:00 00:00:00 Triage Cielo CARLOS 350.1.13.10 it y of HOSPITAL 4.2.7.2.686 Bernabe as [id number] [facility] [address] 2021-03-18 2021-03-18 Emergency [facility] 1.2.840.114 [id number] Univers 17:02:00 22:45:00 Ananya PALOMO 350.1.13.10 ity of [place] 4.[place].2.686 [place] [id number] [facility] [address] 2021-03-18 2021-03-18 Emergency X [facility] ERT [id number] Univers 17:02:00 17:02:00 ANANYA itkelsie [facility] 2021-03-18 2021-03-18 Emergency X [facility] ERT [id number] Univers 16:34:00 16:34:00 ity [facility] 2021-03-18 2021-03-18 Outpatient R EPI [facility] [id number] Univers 15:00:00 16:15:48 JENNIE martykelsie [facility] 2021-03-18 2021-03-18 Office [facility] 1.2.840.114 [id number] Univers 15:00:00 16:15:48 Visit Jennie [facility] 350.1.13.10 it y of [place] 4.2.7.2.686 Bernabe as HUMPHREY?BLEA [id number] [address] MEDICAL OFFICE BUILDING 2021-03-18 2021-03-18 Outpatient [facility] ERT [id number] Univers 15:00:00 16:15:48 JENNIE martykelsie [facility] 2021-03-18 2021-03-18 [facility] [id number] Univers 15:00:00 16:15:48 JENNIE martykeslie [facility] 2021-03-18 2021-03-18 Transition JONO Galvan 1.2.840.114 [id number] Univers 00:00:00 00:00:00 of Care Nara MG 350.1.13.10 it y of [place].2.[place] [id number] [facility] [address] 2021-03-122021-03-17 Inpatient X [facility] [id number] Univers 12:11:00 15:43:00 ALED ity [facility] 2021-03-12 2021-03-17 Hospital Bethel Damien MCKIN[place] 1.2.840 .114 [id number] Univers 12:11:00 15:43:00 Encounter Soni Hunter CARLOS 350.1.13.10 ity of [facility] 4.2.7.2.686 [place] [id number] [facility] [address] 2021-03-12 2021-03-17 Inpatient X [facility] [id number] Univers 12:11:00 15:43:00 [facility] ity [facility] 2021-03-17 2021-03-17 Nurse Esperanza Cronin 1.2.840.114 [id number] Univers 00:00:00 00:00:00 Triage CARLOS 350.1.13.[address] [facility] 4.2.7.2.686 Bernabe as [id number] [facility] [address] 2021-03-16 2021-03-16 Case Jonathanrussell, [facility] 1.2.840.114 [id number] Univers 00:00:00 00:00:00 Management Wissam Y HEALTH 350.1.13.10 ity of [place] [facility] [place].2.7.2.[place] [id number] [facility] [address] 2021-03-16 2021-03-16 Case Jonathanrussell, [facility] 1.2.840.114 [id number] Univers 00:00:00 00:00:00 Management Wissam Y HEALTH 350.1.13.10 ity of [place] [facility] 4.2.7.2.[place] [id number] [facility] [address] 2021-03-11 2021-03-11 Transition JONO Galvan 1.2.840.114 [id number] Univers 00:00:00 00:00:00 of Care Nara B MG 350.1.13.10 it y of [place]2.[place].2.[place] [id number] [facility] [address] 2021-03-11 2021-03-11 Telephone [facility] 1.2.872.644 [id number] Univers 00:00:00 00:00:00 Sriram PALOMO 350.1.13.10 ity of [place] 4.[place].2.[place] [id number] Pa dical NAL 059 [employer] 2021-03-07 2021-03-10 Outpatient X ANUJ GONZALES [facility] SAMI [id number] Univers 08:28:00 14:20:00 ity of [facility] 2021-03-07 2021-03-10 Emergency [place] 1.2.840. 114 [id number] Univers 08:28:00 14:20:00 Anuj Gonzales CARLOS 350.1.13.[address] [facility] 4.2.7.2.686 Bernabe as [id number] [facility] [address] 2021-03-07 2021-03-10 Outpatient X ANUJ GONZALES [facility] ASMI [id number] Univers 08:28:00 14:20:00 ity of [facility] 2021-03-09 2021-03-09 Surgery Misael Castro [facility] 1.2.840.114 [id number] Univers 09:36:00 10:16:00 Johnysharonda ABBASI 350.1.13.10 it y of [place] 4.2.7.2.686 Bernabe as BLDG [id number] [facility] [address] 2021-03-03 2021-03-03 Outpatient R HEMANTH [facility] [id number] Univers 14:00:00 14:44:31 SHANTEL ity of [facility] 2021-03-03 2021-03-03 Office [facility] 1.2.840.114 [id number] Univers 14:00:00 14:44:31 Visit Shantel PALOMO 350.1.13.10 ity [facility] 4.2.7.2.[place] [id number] Pa dical NAL 188 [employer] 2021-03-03 2021-03-03 Out[facility] [id number] Univers 14:00:00 14:00:00 DIANN itkelsie [facility] 2021-02-08 2021-02-08 Office Sabina Barba [facility] 1.2.840.114 [id number] Univers 15:30:00 16:44:10 Visit KHLOE 350.1.13.10 it y of [place] [id number] [address] 2021-02-08 2021-02-08 Outpatient R SABINA BARBA [facility] [id number] Univers 15:30:00 16:44:10 ity [facility] 2021-02-08 2021-02-08 Outpatient R GONSALO SABINA [facility] [id number] Univers 15:30:00 [facility]44[facility] 2021-02-08 2021-02-08 Outpatient R SABINA BARBA [facility] [id number] Univers 15:30:00 15:30:[facility] 2021-02-08 2021-02-08 Outpatient R SABINA BARBA [facility] [id number] Univers 15:30:00 15:30:00 [facility] 2021-02-03 2021-02-03 [facility] [id number] Univers 00:00:00 00:00:00 Management Wondiful A HEALTH [id number] ity of [place] [id number] Bernabe as HUMPHREY?BLEA [id number] Pa jamilahelinor TEREZAKELSI [address] [place] [facility] 2021-02-01 2021-02-01 [facility] [id number] Univers 15:30:00 16:58:42 Visit Ericka HEALTH 350.1.13.10 it y of [place] [id number] Bernabe as HUMPHREY?BLEA [phone] Pa jamilahelinor TEREZA [address] [place] [facility] 2021-02-01 2021-02-01 [facility] [id number] Univers 15:30:00 16:58:42 ERICKA ity [facility] 2021-02-01 2021-02-01 Outpatient R MEKA [facility] [id number] Univers 16:30:00 16:30:00 ERICKA [facility] 2021-02-01 2021-02-01 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Lab, Ang - Db [facility] [id number] Univers 16:02:42 16:17:42 Visit Ericka Ackerman [facility] [id number] ity of [place] [id number] Bernabe as HUMPHREY?BLEA [phone] [address] MEDICAL OFFICE [facility] 2021-02-01 2021-02-01 Outpatient R MEKA [facility] [id number] Univers 15:30:00 15:30:00 [facility]31 2021-01-31 [facility] [id number] Univers 13:40:00 13:44:29 SRIRAM de oliveira [facility] 2021-01-31 2021-01-31 [facility] [id number] Univers 13:40:00 13:44:29 [facility] 2021-01-31 2021-01-31 [facility] 1.2.840.114 [id number] Univers 13:18:52 13:44:29 Visit Sriram [place] 350.1.13.10 ity [facility] [place].2.7.2.[place] [phone] Pa dical NAL 059 [employer] 2021-01-31 2021-01-31 [facility] [id number] Univers 13:40:00 13:40:00 SRIRAM de oliveira o [facility] 2021-01-31 2021-01-31 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Lab, Ang - Db [facility] 1.2.840.1 14 [id number] Univers 10:03:00 10:18:00 [facility] 350.1.13.10 ity of [place] 4.2.7.2.686 Bernabe as HUMPHREY?BLEA [phone] [address] MEDICAL OFFICE [facility] 2021-01-31 2021-01-31 Office [facility] 1.2.840.114 [id number] Univers 09:22:40 10:03:18 Visit Wondiful A HEALTH 350.1.13.10 ity of [place] 4.2.7.2.686 Bernabe as HUMPHREY?BLEA [phone] Pa sherif HOLLAND 044 [facility] OFFICE [facility] 2021-01-31 2021-01-31 Outpatient [facility] [id number] Univers 09:30:00 09:30:00 WONDIFUL ity o f [facility] 2021-01-11 2021-01-11 [facility] 1.2.840.114 [id number] Univers 00:00:00 00:00:00 Management Wondiful A HEALTH 350.1.13.10 ity of [place] 4.2.7.2.686 Bernabe as HUMPHREY?BLEA [phone] Pa sherif HOLLAND 044 [facility] OFFICE [facility] 2021-01-07 2021-01-07 [facility] [id number] Univers 16:30:00 23:59:00 WONDIFUL ity o f [facility] 2021-01-07 2021-01-07 Hospital [facility] 1.2.692.982 [id number] Univers 16:30:00 23:59:00 Encounter Wondiful A HEALTH 350.1.13.10 ity of [place] 4.2.7.2.686 Bernabe as HUMPHREY?BLEA [phone] Pa sherif HOLLAND [address] [place] MEDICAL OFFICE [facility] 2021-01-07 2021-01-07 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Lab, Ang - Db [facility] 1.2.840.1 14 [id number] Univers 16:36:52 16:51:52 Visit Clare Gonsalves A HEALTH 350.1.13.1 0 ity of [place] 4.2.7.2.686 Bernabe as HUMPHREY?BLEA [phone] Pa sherif HOLLAND 353 [facility] OFFICE [facility] 2021-01-07 2021-01-07 Outpatient [facility] [id number] Univers 16:15:00 16:37:00 WONDIFUL ity o f [facility] 2021-01-07 2021-01-07 Office [facility] 1.2.840.114 [id number] Univers 15:34:25 16:37:00 Visit Wondiful A HEALTH 350.1.13.10 ity of [place] 4.2.7.2.686 Bernabe as HUMPHREY?BLEA [phone] [address] MEDICAL OFFICE [facility] 2021-01-05 2021-01-05 Telephone [facility] 1.2.840.114 [id number] Univers 00:00:00 00:00:00 Wondiful A HEALTH 350.1.13.10 ity of [place] 4.2.7.2.686 Bernabe as HUMPHREY?BLEA [phone] [address] 2020-12-28 2020-12-28 Out[facility] [id number] Univers 14:00:00 14:00:00 SILVERIO ity of [facility] 2020-12-27 2020-12-27 Outpatient [facility] [id number] Univers 13:14:51 23:59:00 WONDIFUL ity o f [facility] 2020-12-27 2020-12-27 [facility] 1.2.274.037 [id number] Univers 13:00:00 23:59:00 Encounter Wondiful A [place] 350.1.13.10 ity of [place] 4.2.7.2.686 [place] [facility] [phone] [address] 2020-12-27 2020-12-27 Outpatient [facility] [id number] Univers 00:00:00 00:00:00 WONDIFUL ity o f [facility] 2020-12-13 2020-12-13 Telephone [facility] 1.2.840.114 [id number] Univers 00:00:00 00:00:00 Wondiful A Health 350.1.13.10 ity of [place] 4.2.7.2.686 Bernabe as Humphrey?Blea [phone] Me [address] Office [facility] 2020-12-13 2020-12-13 Telephone Major MDMB 1.2.840.114 [id number] Univers 00:00:00 00:00:00 Wondiful A Health 350.1.13.10 ity of [place] 4.2.7.2.686 Bernabe as Humphrey?Blea [phone] [address] Office [facility] 2020-12-06 2020-12-06 Telephone Major [facility] 1.2.840.114 [id number] Univers 00:00:00 00:00:00 Wondiful A Health 350.1.13.10 ity of [place] 4.2.7.2.686 Bernabe as Humphrey?Blea [phone] [address] Office [facility] 2020-12-03 2020-12-03 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Lab, Ang - Db [facility] 1.2.840.1 14 [id number] [facility] 16:48:38 17:03:11 Visit Clare Gonsalves Health 350.1.13.1 0 ity of [place] 4.2.7.2.686 Bernabe as Humphrey?Blea [phone] [address] Office [facility] 2020-12-03 2020-12-03 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Lab, Ang - Db [facility] 1.2.840.1 14 [id number] Univers 16:48:38 17:03:11 Visit Clare Gonsalves A Health 350.1.13.1 0 ity of [place] 4.2.7.2.686 Bernabe as Humphrey?Blea [phone] [address] Office [facility] 2020-12-03 2020-12-03 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Lab, Ang - Db [facility] 1.2.840.1 14 [id number] [facility] 16:48:38 17:03:11 Visit Clare Gonsalves A HEALTH 350.1.13.1 0 ity of [place] 4.2.7.2.686 Bernabe as HUMPHREY?BLEA [phone] [address] OFFICE [facility] 2020-12-03 2020-12-03 Office Major [facility] 1.2.840.114 [id number] Univers 15:32:14 16:49:03 Visit Wondiful A Health 350.1.13.10 ity of [place] 4.2.7.2.686 Bernabe as Humphrey?Blea [phone] Pa sherif kney 044 [facility] 2020-12-03 2020-12-03 Outpatient R MAJOR [facility] [id number] [facility] 15:45:00 15:45:00 WONDIFUL ity o f [facility] 2020-11-23 2020-11-23 [facility] 1.2.840.114 [id number] [facility] 09:49:05 10:43:01 Visit Silverio [place] 350.1.13.10 i ty of [place].2.7.2.686 [place] Profess[place] [phone] [address] 2020-11-23 2020-11-23 Out[facility] [id number] Univers 10:00:00 10:00:00 SILVERIO ity of [facility] 2020-11-15 2020-11-15 Refisra [facility] 1.2.840.114 [id number] Univers 00:00:00 00:00:00 Qiachaim [place] 350.1.13.10 [place] of [place]2.7.2.686 [place] [phone] [address] 2020-11-15 2020-11-15 Refisra [facility] 1.2.840.114 [id number] Univers 00:00:00 00:00:00 Wondiful A [place] 350.1.13.10 ity of [place].2.7.2.686 [place] [phone] [facility] nal [address] [place] [address] 2020-11-11 2020-11-11 [facility] 1.2.840.114 [id number] Univers 00:00:00 00:00:00 Wondiful A Health 350.1.13.10 ity of [place] 4.2.7.2.686 Bernabe as Professio [phone] [place] [address] [facility] 2020-10-05 2020-10-05 Cali [facility] 1.2.840.114 [id number] Univers 00:00:00 00:00:00 Wondiful A Health 350.1.13.10 ity of [place] 4.2.7.2.686 Bernabe as Professio [phone] [address] 2020-10-04 2020-10-04 Orders Doctor YANA 1.2.840.114 [id number] Univers 00:00:00 00:00:00 Only Unassigned, CARLOS 350.1.13.[address] [place] [facility] 4.2.7.2.686 Bernabe as [phone] [address] 2020-09-24 2020-09-24 Refis[facility] 1.2.840.114 [id number] Univers 00:00:00 00:00:00 Wondiful A Health 350.1.13.10 ity of [place] 4.2.7.2.686 Bernabe as Professio [phone] [facility] 044 [facility] 2020-09-09 2020-09-09 Cali [facility] 1.2.840.114 [id number] Univers 00:00:00 00:00:00 Qiangjun [place] 350.1.13.10 [place] of [place]2.7.2.686 [place] [phone] [facility] 059 [facility] 2020-09-03 2020-09-03 Cali [facility] 1.2.840.114 [id number] Univers 00:00:00 00:00:00 Wondiful A Health 350.1.13.10 ity of [place] 4.2.7.2.686 Bernabe as Professio [phone] [address] 2020-07-27 2020-07-27 Outpatient R KIA [facility] [id number] Univers 10:20:00 10:20:00 SILVERIO ity of [facility] 2020-07-27 2020-07-27 Office Kia [facility] 1.2.840.114 [id number] Univers 09:56:55 10:16:55 Visit Silverio [place] 350.1.13.10 i ty of [place].2.7.2.686 [place] [phone] Pa dical nal 059 [facility] 2020-07-13 2020-07-13 Orders Doctor YANA 1.2.840.114 [id number] Univers 00:00:00 00:00:00 Only Unassigned, CARLOS 350.1.13.[address] [place] [facility] 4.2.7.2.686 Bernabe as [phone] [address] 2020-07-08 2020-07-08 Refill [facility] 1.2.840.114 [id number] Univers 00:00:00 00:00:00 Wondiful A Health 350.1.13.10 ity of [place] 4.2.7.2.686 Bernabe as Professio [phone] [facility] 044 [facility] One 2020-06-29 2020-06-29 Outpatient R [facility] [id number] Univers 10:30:00 10:30:00 ity of [facility] 2020-06-29 2020-06-29 [facility] [id number] Univers 10:30:00 10:30:00 SILVERIO ity [facility] 2020-06-07 2020-06-07 Office [facility] 1.2.840.114 [id number] Univers 13:02:14 13:29:23 Visit Guillelisazechariah [place] 350.1.13.10 ity of [place] 4.2.7.2.686 [place] [phone] Pa dical nal 059 [facility] 2020-06-07 2020-06-07 Out[facility] [id number] Univers 13:00:00 13:00:00 SRIRAM diamond f [facility] 2020-06-02 2020-06-02 Outpatient R DEE [facility] [id number] Univers 19:20:00 19:20:00 VIRI diamond f [facility] 2020-06-02 2020-06-02 Laboratory Lab, Adc Fam Pob I [facility] 1.2. 840.114 [id number] Univers 18:38:28 18:58:28 Only JoseKarla [facility] 350.1.13.10 ity of [place] 4.2.7.2.686 [facility] [phone] Pa dic[address] Office Building One 2020-06-02 2020-06-02 Letter Doctor YANA 1.2.840.114 [id number] Univers 00:00:00 00:00:00 (Out) Unassigned, CARLOS 350.1.13.10 ity of [place] [facility] 4.2.7.2.686 Bernabe as [phone] [address] 2020-06-02 2020-06-02 Letter Doctor YANA 1.2.840.114 [id number] Univers 00:00:00 00:00:00 (Out) Unassigned, CARLOS 350.1.13.10 ity of [place] [facility] 4.2.7.2.686 Bernabe as [phone] [address] 2020-06-02 2020-06-02 Letter Doctor MILLAN 1.2.840.114 [id number] Univers 00:00:00 00:00:00 (Out) Unassigned, CARLOS 350.1.13.10 ity of [place] [facility] 4.2.7.2.686 Bernabe as [phone] [address] 2020-06-02 2020-06-02 Letter Doctor MILLAN 1.2.840.114 [id number] Univers 00:00:00 00:00:00 (Out) Unassigned, CARLOS 350.1.13.10 ity of [place] [facility] 4.2.7.2.686 Bernabe as [phone] [address] 2020-05-20 2020-05-20 Telephone YANA Samano 1Karen2.652.444 [id number] Univers 00:00:00 00:00:00 Teri RENEE 350.1.13.10 ity of [facility]OSPITAL 4.2.7.2.686 Bernabe as [phone] [place] [address] [place] 2020-05-20 2020-05-20 Telephone YANA Samano 1.2.372.338 [id number] 00:00:00 00:00:[address] [facility] 4.2.7.2.686 [id number] 08 2020-04-28 2020-04-28 Refill [facility] 1.2.840.114 [id number] Univers 00:00:00 00:00:00 Silverio [place] 350.1.13.10 i ty [place]2.7.2.[place] [phone] [address] 2020-04-27 2020-04-27 [facility] 1.2.840.114 [id number] Univers 11:25:29 11:45:29 Visit Silverio [place] 350.1.13.10 i ty of [address]686 [place] [phone] [address] 2020-04-27 2020-04-27 [facility] [id number] Univers 11:40:00 11:40:00 SILVERIO ity [facility] 2020-04-26 2020-04-26 [facility] [id number] Univers 10:20:00 10:20:00 ERICH ity [facility] 2020-04-14 2020-04-14 [facility] 1.2.486.617 [id number] Univers 09:18:24 23:59:00 Encounter Wondiful Lauryn CooleyDonovan 350.1.13.10 ity of [place] 4.2.7.2.686 [place] [phone] [facility] [address] [place] 2020-04-14 2020-04-14 Outpatient [facility] [id number] Univers 00:00:00 00:00:00 WONDIFUL ity o f [facility] 2020-03-31 2020-03-31 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[place], Adc Lab Main [facility] 1.2.8 40.114 [id number] Univers 09:18:24 09:33:24 Visit Noah Gonsalvesjoshua Lauryn Pal[place] 350.1.13. 10 it[place] of [place]2.7.2.[place] [phone] Me dical nal 353 [facility] 2020-03-31 2020-03-31 Outpatient R MAJOR [facility] [id number] Univers 09:15:00 09:15:00 WONDIFUL ity o f [facility] 2020-03-30 2020-03-30 Laboratory Pacemaker/Icd, [facility] 1.2. 840.114 [id number] Univers 12:51:02 13:15:05 Only Silverio Adam 350.1.13.10 ity of [place] 4.2.7.2.686 [place] [phone] Pa dical nal 059 [facility] 2020-03-30 2020-03-30 Outpatient R [facility] [id number] Univers 13:00:00 13:00:00 ity of [facility] 2020-03-29 2020-03-29 Office [facility] 1.2.840.114 [id number] Univers 15:15:24 16:12:41 [facility] Lauryn [facility] 350.1.13.10 ity of [place] 4.2.7.2.686 Bernabe as Professio [phone] Pa dical nal 044 [place] Office Building One 2020-03-29 2020-03-29 Outpatient R MAJOR [facility] [id number] Univers 15:30:00 15:30:00 WONDIFUL ity o f [facility] 2020-03-03 2020-03-03 Orders Doctor MILLAN 1.2.840.114 [id number] Univers 00:00:00 00:00:00 Only Unassigned, CARLOS 350.1.13.10 [facility] 4.2.7.2.686 Bernabe as [phone] [address] 2020-02-03 2020-02-03 Outpatient R KUMAR [facility] [id number] Univers 14:20:00 14:20:00 DIMITRIJUN ity o f [facility] 2020-02-03 2020-02-03 Office [facility] 1.2.840.114 [id number] Univers 13:38:09 14:13:45 Visit Guillechaim Palomo 350.1.13.10 ity of [place] 4[place]2.7.2.686 [place] [phone] [address] 2020-01-27 2020-01-27 Office [facility] 1.2.840.114 [id number] Univers 10:58:57 11:32:49 Visit Silverio Dewey 350.1.13.10 i ty of [place] 4.2.7.2.686 [place] [phone] [address] 2020-01-27 2020-01-27 Outpatient R [facility] [id number] Univers 11:00:00 11:00:00 SILVERIO ity of [facility] 2020-01-20 2020-01-20 Orders Doctor YANA 1.2.840.114 [id number] Univers 00:00:00 00:00:00 Only Unassigned, CARLOS 350.1.13.[address] [place] [facility] 4.2.7.2.686 Bernabe as [phone] [address] 2020-01-20 2020-01-20 Telephone [facility] 1.2.606.414 [id number] Univers 00:00:00 00:00:00 Sriram [place] 350.1.13.10 ity of [place] 4[place]2.7.2.686 [place] [phone] [address] 2020-01-20 2020-01-20 Refill [facility] 1.2.840.114 [id number] Univers 00:00:00 00:00:00 Sriram [place] 350.1.13.10 ity of [place] 4[place]2.7.2.686 [place] [phone] [address] 2020-01-14 2020-01-14 Orders Doctor YANA 1.2.840.114 [id number] Univers 00:00:00 00:00:00 Only Unassigned, CARLOS 350.1.13.10 ity of [place] [facility] 4.2.7.2.686 Bernabe as [phone] [address] 2020-01-12 2020-01-12 Outpatient R KUMAR, [facility] [id number] Univers 10:00:00 10:00:00 DIMITRIZECHARIAH alvino o f [facility] 2020-01-05 2020-01-05 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2, Adc Lab [facility] 1.2.840.114 [id number] Univers 15:31:18 15:46:18 Visit Omkrystle, Min Pal[place] 350.1.1 3.10 ity of [place] 4[place]2.7.2.686 [place] [phone] Pa dical nal 353 [facility] 2020-01-05 2020-01-05 Office [facility] 1.2.840.114 [id number] Univers 14:39:45 15:28:14 Visit Minorlando Paolmo 350.1.13.10 i ty of Gretchen Bar[place] 4.2.7.2.686 [place] [phone] Pa dical nal 059 [facility] 2020-01-05 2020-01-05 Outpatient R FREDDY, [facility] [id number] Univers 14:45:00 14:45:00 MIN ity of [facility] 2020-01-05 2020-01-05 Orders Doctor MILLAN 1.2.840.114 [id number] Univers 00:00:00 00:00:00 Only Unassigned, CARLOS 350.1.13.10 ity of [place] [facility] 4.2.7.2.686 Bernabe as [phone] [address] 2020-01-01 2020-01-01 Telephone Kumar, [facility] 1.2.849.652 [id number] Univers 00:00:00 00:00:00 Guillelisazechariah [place] 350.1.13.10 ity of [place] 4.2.7.2.686 [place] [phone] Pa dical nal 059 [facility] 2019-12-19 2019-12-19 Office [facility] 1.2.840.114 [id number] Univers 11:30:41 12:16:36 Visit Nita [place] 350.1.13.10 i ty of [place] 4.2.7.2.686 [place] [phone] Pa dical nal 085 [facility] 2019-12-19 2019-12-19 Outpatient R KY DEGR[facility]OTCRISTIAN [facility] [id number] Univers 11:40:00 11:40:00 NITA DEGROOT i ty of [facility] 2019-12-19 2019-12-19 Telephone [facility] 1.2.926.242 [id number] Univers 00:00:00 00:00:00 Sriram [place] 350.1.13.10 ity of [place]2.7.2.[place] [phone] [facility] nal 059 [facility] 2019-12-18 2019-12-18 Orders Doctor YANA 1.2.840.114 [id number] Univers 00:00:00 00:00:00 Only Unassigned, CARLOS 350.1.13.10 ity of [facility] 4.2.7.2.686 Bernabe as [phone] [address] 2019-12-16 2019-12-16 Office [facility] 1.2.840.114 [id number] Univers 08:53:47 09:13:47 Visit Silverio Palomo 350.1.13.10 i ty of [place] 4.2.7.2.686 [place] [phone] [facility] nal 059 [facility] 2019-12-16 2019-12-16 [facility] [id number] Univers 09:00:00 09:00:00 SILVERIO ity of [facility] 2019-12-15 2019-12-15 Telephone [facility] 1.2.840.114 [id number] Univers 00:00:00 00:00:00 Wondiful A Health 350.1.13.10 ity of [place] 4.2.7.2.686 Bernabe as Professio [phone] [facility] 044 [place] Office [facility] One 2019-12-15 2019-12-15 Case [facility] 1.2.840.114 [id number] Univers 00:00:00 00:00:00 Management Wondiful A Health 350.1.13.10 ity of [place] 4.2.7.2.686 Bernabe as Professio [phone] Pa dical [facility] 044 [place] Office [facility] 2019-12-10 2019-12-10 Orders Doctor YANA 1.2.840.114 [id number] Univers 00:00:00 00:00:00 Only Unassigned, CARLOS 350.1.13.[address] [place] [facility] 4.2.7.2.686 Bernabe as [phone] [address] 2019-12-09 2019-12-09 Urgent Provider, [facility] 1.2.840.114 [id number] Univers 14:46:41 15:59:38 Care Anny [facility] 350.1.13.10 ity of [place] 4.2.7.2.686 Bernabe as Professio [phone] [address] Office [facility] 2019-12-09 2019-12-09 Outpatient R ANNY [facility] [id number] Univers 15:00:00 15:00:00 MONICA ity of [facility] 2019-12-04 2019-12-04 Office Major [facility] 1.2.840.114 [id number] Univers 12:39:51 13:39:11 Visit Wonjoshua [facility] Health 350.1.13.10 ity of [place] 4.2.7.2.686 Bernabe as Professio [phone] [address] Office [facility] 2019-12-04 2019-12-04 Outpatient R MAJOR [facility] [id number] Univers 13:00:00 13:00:00 WONDIFUL ity o f [facility] 2019-12-02 2019-12-02 Laboratory Pacemaker/Icd, [facility] 1.2. 840.114 [id number] Univers 10:50:24 11:27:03 Only Sriram Heath [place] 350.1.13.10 ity of [place].2.[place] [phone] [facility] 059 [facility] 2019-12-02 2019-12-02 Outpatient R [facility] [id number] Univers 11:00:00 11:00:00 ity of [facility] 2019-12-02 2019-12-02 Telephone [facility] 1.2.840.114 [id number] Univers 00:00:00 00:00:00 Wondiful A Health 350.1.13.10 ity of [place] 4.2.7.2.686 Bernabe as Professio [phone] Pa dical nal 044 [place] Office [facility] 2019-12-01 2019-12-01 Office [facility] 1.2.840.114 [id number] Univers 15:16:46 16:01:04 Visit Sriram Palomo 350.1.13.10 ity of [place]2.[place].2.[place] [phone] Pa dical nal 059 [facility] 2019-12-01 2019-12-01 Outpatient R [facility] [id number] Univers 15:40:00 15:40:00 SRIRAM martyy o f [facility] 2019-12-01 2019-12-01 Transition Jono Mccurdy 1.2.840.114 [id number] Univers 00:00:00 00:00:00 of Care Jo Mg 350.1.13.10 i ty of [place] [phone] [facility] [address] 2019-11-26 2019-11-28 Hospital Kirt Thomason [facility] .2.840.1 14 [id number] Univers 14:42:00 15:06:00 Encounter Gab Servin 350.1.13.10 ity of [place].2.[place] [phone] [facility] [address] 2019-11-26 2019-11-28 Inpatient X GAB SERVIN [facility] SAMI [id number] Univers 14:42:00 15:06:00 ity of [facility] 2019-11-26 2019-11-26 Telephone [facility] 1.2.840.114 [id number] Univers 00:00:00 00:00:00 Wondiful A Health 350.1.13.10 ity of [place] 4.2.7.2.686 Bernabe as Professio [phone] Pa dical nal 044 [place] Office [facility] 2019-11-24 2019-11-24 Telemedici [facility] 1.2.840.114 [id number] Univers 12:42:21 16:15:48 ne Visit Wondiful A Health 350.1.13.10 ity of [place] 4.2.7.2.686 Bernabe as Professio [phone] Pa dicut nal 0[address] [place] Office [facility] 2019-11-24 2019-11-24 Outpatient [facility] [id number] Univers 15:30:00 15:30:00 WONDIFUL ity o f [facility] 2019-11-24 2019-11-24 Transition Jono Henry 1.2.840.114 [id number] Univers 00:00:00 00:00:00 of Care Cielo Mg 350.1.13.10 it y of [place]2.7.2.[place] [phone] [facility] [address] [place] 2019-11-24 2019-11-24 Orders Doctor YANA 1.2.840.114 [id number] Univers 00:00:00 00:00:00 Only Unassigned, CARLOS 350.1.13.[address] [place] [facility] 4.2.7.2.686 Bernabe as [phone] [facility] [address] 2019-11-21 2019-11-21 Transition Jono Henry 1.2.840.114 [id number] Univers 00:00:00 00:00:00 of Care Cielo Mg 350.1.13.10 [place] [phone] [facility] [address] 2019-11-08 2019-11-20 [facility] Fam Craig 1.2.840.114 [id number] Univers 18:18:00 16:52:00 Encounter Argenis Barnett Carlos 350.1.13.1 0 ity of [facility] 4.2.7.2 .686 [place] [phone] [address] 2019-11-08 2019-11-20 Inpatient U LEONARD, [facility] [id number] Univers 18:18:00 16:52:00 AHMED ity [facility] 2019-11-20 2019-11-20 [facility] 1.2.840.114 [id number] Univers 00:00:00 00:00:00 [facility] 350.1.13.10 ity of [place] 4.2.7.2.686 Bernabe as Professio [phone] [address] 2019-11-19 2019-11-19 [facility] [id number] Univers 14:30:00 14:30:00 WENTONG [facility] 2019-11-19 2019-11-19 [facility] 1.2.840.114 [id number] Univers 00:00:00 00:00:00 [facility]ondiful [facility] 350.1.13.10 ity of [place] 4.2.7.2.686 Bernabe as Professio [phone] [address] 2019-11-17 2019-11-17 [facility] [id number] Univers 08:00:00 08:00:00 SILVERIO ity [facility] 2019-11-14 2019-11-14 Outpatient R [facility] [id number] Univers 09:00:00 09:00:00 ity [facility] 2019-11-10 2019-11-10 [facility]phone [facility] 1.2.840.114 [id number] Univers 00:00:00 00:00:00 Wondiful [facility] 350.1.13.10 [place]y of [place] 4.2.7.2.686 Bernabe as Professio [phone] [address] 2019-11-08 2019-11-08 [facility] 1.2.840.114 [id number] Univers 00:00:00 00:00:00 Wondiful A Health 350.1.13.10 ity of [place] 4.2.7.2.686 Bernabe as Professio [phone] [place] [address] [address] Office Building One 2019-11-05 2019-11-05 [facility] 1.2.840.114 [id number] Univers 07:42:01 23:59:00 Encounter Silverio [facility] 350.1.13.10 ity of [place] [phone] [place] [address] [address] ([facility]) 2019-11-05 2019-11-05 Outpatient R KIA [facility] [id number] Univers 00:00:00 00:00:00 SILVERIO ity of [facility] 2019-10-29 2019-10-29 Pre Visit Major [facility] 1.2.840.114 [id number] Univers 00:00:00 00:00:00 Outreach Wondiful A Health 350.1.13.10 ity of [place] 4.2.7.2.686 Bernabe as Professio [phone] [address] Office Building One 2019-10-29 2019-10-29 Pre Visit Major [facility] 1.2.840.114 [id number] Univers 00:00:00 00:00:00 Outreach Wondiful A Health 350.1.13.10 ity of [place] 4.2.7.2.686 Bernabe as Professio [phone] [address] Office Building One 2019-10-28 2019-10-28 Office Major [facility] 1.2.840.114 [id number] Univers 08:55:08 09:43:57 Visit Wondiful A Health 350.1.13.10 ity of [place] 4.2.7.2.686 Bernabe as Professio [phone] [address] Office Building One 2019-10-28 2019-10-28 Outpatient R MAJOR, [facility] [id number] Univers 09:30:00 09:30:00 WONDIFUL ity o f [facility] 2019-10-24 2019-10-24 Emergency [facility] 1.2.232.687 [id number] Univers 19:34:00 23:51:00 Lubna S [place] 350.1.13.10 ity of [place] [phone] [facility] [address] [place] 2019-10-24 2019-10-24 Emergency X ORI [facility] ERT [id number] Univers 19:34:00 23:51:00 LUBNA ity of [facility] 2019-10-24 2019-10-24 Telephone [facility] 1.2.840.114 [id number] Univers 00:00:00 00:00:00 Wondiful A Health 350.1.13.10 ity of [place] 4.2.7.2.686 Bernabe as Professio [phone] [address] Office Building [facility] 2019-10-24 2019-10-24 Orders Doctor YANA 1.2.840.114 [id number] Univers 00:00:00 00:00:00 Only Unassigned, CARLOS 350.1.13.10 ity of [place] [facility] 4.2.7.2.686 Bernabe as [phone] [facility] [address] [place] 2019-10-21 2019-10-21 Telephone Mary Kay Adam 1.2.932.005 [id number] Univers 00:00:00 00:00:00 Silverio Drexel 350.1.13.10 it y of Hospital 4.2.7.2.686 Bernabe as [phone] [facility] [address]39 [place] 2019-10-09 2019-10-09 Telephone GLENNA Adam 1.2.840.114 [id number] Univers 00:00:00 00:00:00 Silverio Y HEALTH 350.1.13.10 i ty of CLINICS [place] [phone] [facility] 059 [place] 2019-10-08 2019-10-08 [facility]phone [facility] 1.2.840.114 [id number] Univers 00:00:00 00:00:00 Wondiful A Health 350.1.13.10 ity of [place] 4.2.7.2.686 Bernabe as Professio [phone] [address] Office [facility] 2019-10-08 2019-10-08 Ely Adam [facility] 1.2.249.627 [id number] Univers 00:00:00 00:00:00 Silverio [place] 350.1.13.10 i [place] of [place] [phone] [facility] 059 [facility] 2019-10-01 2019-10-01 Orders Doctor YANA 1.2.840.114 [id number] Univers 00:00:00 00:00:00 Only Unassigned, CARLOS 350.1.13.[address] [place] [facility] 4.2.7.2.686 Bernabe as [phone] [address] 2019-09-23 2019-09-23 Telephone [facility] 1.2.461.791 [id number] Univers 00:00:00 00:00:00 Silverio [place] 350.1.13.10 i ty of [place] Profess[place] [phone] [facility] 059 [facility] 2019-09-18 2019-09-18 Telephone [facility] 1.2.840.114 [id number] Univers 00:00:00 00:00:00 Wondiful A [place] 350.1.13.10 ity of [place]2.[place].2.[place] Profess[place] [phone] [facility] 044 [facility] 2019-09-17 2019-09-17 [facility] 1.2.325.832 [id number] Univers 00:00:00 00:00:00 Silverio [place] 350.1.13.10 i ty of [place]2.[place].2.[place] [phone] [place] 7[address]119 [facility] 2019-09-16 2019-09-16 Office [facility] 1.2.840.114 [id number] Univers 10:18:05 12:06:59 Visit Silverio [place] 350.1.13.10 i ty of [place]2.7.2.[place] [phone] [place] 767119 [facility] 2019-09-16 2019-09-16 [facility] [id number] Univers 10:40:00 10:40:00 SILVERIO ity of [facility] 2019-09-16 2019-09-16 Telephone [facility] 1.2.287.780 [id number] Univers 00:00:00 00:00:00 Sriram [place] 350.1.13.10 ity of [place] [phone] Pa dical nal 059 [facility] 2019-09-15 2019-09-15 Laboratory Pc, Adc Echo Room 1 - [facility] 1 .2.840.114 [id number] Univers 09:42:44 11:10:38 Only Kumar Sriram Palomo 350.1.13.10 ity of [place]2.[place].2.[place] Profess[place] [phone] Pa dicut nal [address] [place] [address] 2019-09-15 2019-09-15 Outpatient R [facility] [id number] Univers 10:00:00 10:00:00 ity of [facility] 2019-09-10 2019-09-10 [facility]phone [facility] 1.2.840.114 [id number] Univers 00:00:00 00:00:00 Wondiful A Dewey 350.1.13.10 ity of [place]2.7.2.[place] [phone] Pa dical nal 044 [facility] 2019-09-08 2019-09-08 Office [facility] 1.2.840.114 [id number] Univers 13:10:22 13:44:08 Visit Sriram Palomo 350.1.13.10 ity of [place].2.7.2.[place] [phone] Pa dical nal 059 [facility] 2019-09-08 2019-09-08 Outpatient R [facility] [id number] Univers 13:20:00 13:20:00 SRIRAM fergusony o f [facility] 2019-08-25 2019-08-25 Refill [facility] 1.2.840.114 [id number] Univers 00:00:00 00:00:00 Sriram Health 350.1.13.10 i ty of [place] 4.2.7.2.686 Bernabe as Professio [phone] Pa dical nal 044 [place] Office [facility] One 2019-08-18 2019-08-18 Telephone Kumar, [facility] 1.2.392.089 [id number] Univers 00:00:00 00:00:00 Sriram Palomo 350.1.13.10 ity of [place].2.[place] Profess[place] [phone] [facility] nal 059 [facility] 2019-08-15 2019-08-15 Nurse Visit, [facility] Nurse [facility] 1.2.840.1 14 [id number] Univers 09:12:28 21:57:47 Visit Dago Gross 350.1.13. 10 ity of [place]2.7.2.[place] Profess[place] [phone] [facility] nal 059 [facility] 2019-08-15 2019-08-15 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2, [facility] Lab [facility] 1.2.840.114 [id number] Univers 10:09:35 10:24:35 Visit Dago Gross 350.1.13. 10 ity of [place].2.7.2.[place] Professio [phone] [facility] 353 [facility] 2019-08-15 2019-08-15 Outpatient R [facility] [id number] Univers 09:30:00 09:30:00 ity of [facility] 2019-08-13 2019-08-13 Office [facility] 1.2.840.114 [id number] Univers 16:05:34 16:57:20 Visit Alexey Palomo 350.1.13.10 i ty of [place]2.7.2.[place] Profess[place] [phone] [facility] nal 220 [facility] 2019-08-13 2019-08-13 Outpatient R TIN [facility] [id number] Univers 16:30:00 16:30:00 GALILEAONG ity of [facility] 2019-08-13 2019-08-13 Orders Doctor MILLAN 1.2.840.114 [id number] Univers 00:00:00 00:00:00 Only Unassigned, CARLOS 350.1.13.10 ity of [place] [facility] 4.2.7.2.686 Bernabe as [phone] [address] 2019-08-13 2019-08-13 Refill [facility] 1.2.840.114 [id number] Univers 00:00:00 00:00:00 Sriram Palomo 350.1.13.10 ity of [place] Profess[place] [phone] [address] 2019-08-07 2019-08-07 Refill [facility] 1.2.840.114 [id number] Univers 00:00:00 00:00:00 Wondiful A Health 350.1.13.10 ity of [place] 4.2.7.2.686 Bernabe as Professio [phone] [address] Office [facility] 2019-08-04 2019-08-04 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Pc, Adc Vascular Room 1 - [facility] 1.2.840.114 [id number] Univers 10:43:00 11:05:18 Visit Sriram Heath 350.1.13.10 ity of [place]2.[place].2.[place] Profess[place] [phone] [address] 2019-08-04 2019-08-04 Outpatient R [facility] [id number] Univers 11:00:00 11:00:00 ity of [facility] 2019-08-04 2019-08-04 Telephone [facility] 1.2.695.587 [id number] Univers 00:00:00 00:00:00 Dimitrizechariah Palomo 350.1.13.10 ity of [place]2.[place].2.[place] [phone] [address] 2019-08-03 2019-08-03 Ref[facility]ra [facility] 1.2.840.114 [id number] Univers 00:00:00 00:00:00 Wondiful A Health 350.1.13.10 ity of [place] 4.2.7.2.686 Bernabe as Professio [phone] [address] Office [facility] 2019-07-30 2019-07-30 Office [facility] 1.2.840.114 [id number] Univers 13:54:46 14:40:55 Visit Sriram Palomo 350.1.13.10 it[place] of [place]2.[place].2.[place] [phone] [facility] 059 [facility] 2019-07-30 2019-07-30 Outpatient R [facility] [id number] Univers 14:20:00 14:20:00 SRIRAM ity o f [facility] 2019-07-30 2019-07-30 Orders Doctor YANA 1.2.840.114 [id number] Univers 00:00:00 00:00:00 Only Unassigned, CARLOS 350.1.13.10 ity of [place] [facility] 4.2.7.2.686 Bernabe as [phone] [address] 2019-07-17 2019-07-17 Orders Doctor YANA 1.2.840.114 [id number] Univers 00:00:00 00:00:00 Only Unassigned, CARLOS 350.1.13.10 ity of [place] [facility] 4.2.7.2.686 Bernabe as [phone] [address] 2019-07-16 2019-07-16 Telephone [facility] 1.2.840.114 [id number] Univers 00:00:00 00:00:00 Wondiful A Health 350.1.13.10 ity of [place] 4.2.7.2.686 Bernabe as Professio [phone] [facility] 044 [place] Office Building One 2019-07-01 2019-07-01 Telephone [facility] 1.2.453.598 [id number] Univers 00:00:00 00:00:00 Sriram Palomo 350.1.13.10 it[place] of [place].2.[place] [phone] Pa dical nal 059 [facility] 2019-06-30 2019-06-30 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[place], 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 Main [facility] 1.2.8 40.114 [id number] Univers 07:52:57 08:07:57 Visit Kumar, Qiangjun [place] 350.1.13.10 ity of [place]2.[place].2.[place] [phone] [facility] 353 [facility] 2019-06-30 2019-06-30 Outpatient R KUMAR, [facility] [id number] Univers 08:00:00 08:00:00 SRIRAM ity o f [facility] 2019-06-25 2019-06-25 Outpatient R KUMAR, [facility] [id number] Univers 09:40:00 09:40:00 QIACHAIM ity o f [facility] 2019-06-25 2019-06-25 Telemedici [facility] 1.2.840.114 [id number] Univers 08:37:50 08:57:50 ne Visit Guillelisazechariah [place] 350.1.13.10 ity of [place]2.[place].2.[place] Profess[place] [phone] [facility] 059 [facility] 2019-05-28 2019-05-28 [facility] 1.2.840.114 [id number] Univers 00:00:00 00:00:00 Wondiful A Health 350.1.13.10 ity of [place] 4.2.7.2.686 Bernabe as Professio [phone] [facility] 044 [facility] 2019-05-25 2019-05-25 [facility] 1.2.840.114 [id number] Univers 00:00:00 00:00:00 Wondiful A Health 350.1.13.10 ity of [place] 4.2.7.2.686 Bernabe as Professio [phone] [facility] 044 [facility] 2019-05-21 2019-05-21 Outpatient R ALEXUS RAMOS [facility] [id number] Univers 10:00:00 10:00:00 ALEXUS RAMOS ity [facility] 2019-05-20 2019-05-20 Telemedici [facility] 1.2.840.114 [id number] Univers 13:50:59 14:10:59 ne [facility] 350.1.13.10 ity of [place].2.[place] Profess[place] [phone] Pa dical nal 059 [facility] 2019-05-20 2019-05-20 [facility] [id number] Univers 13:40:00 13:40:00 QIANGZECHARIAH ity o f [facility] 2019-05-20 2019-05-20 Telephone [facility] 1.2.840.114 [id number] Univers 00:00:00 00:00:00 Wondiful A Health 350.1.13.10 ity of [place] 4.2.7.2.686 Bernabe as Professio [phone] Pa dical nal 044 [place] Office [facility] 2019-05-13 2019-05-13 Telephone [facility] 1.2.099.373 [id number] Univers 00:00:00 00:00:00 Qiangjun [place] 350.1.13.10 ity of [place]2.[place].2.[place] [phone] Pa dical nal 059 [facility] 2019-05-09 2019-05-09 Refill [facility] 1.2.840.114 [id number] Univers 00:00:00 00:00:00 Wondiful A Health 350.1.13.10 ity of [place] 4.2.7.2.686 Bernabe as Professio [phone] Pa dical nal 044 [facility] 2019-05-02 2019-05-02 Telephone [facility] 1.2.840.114 [id number] Univers 00:00:00 00:00:00 Wondiful A Health 350.1.13.10 ity of [place] 4.2.7.2.686 Bernabe as Professio [phone] Pa dical nal 044 [facility] 2019-05-02 2019-05-02 Telephone [facility] 1.2.687.725 [id number] Univers 00:00:00 00:00:00 Wentong [place] 350.1.13.10 i ty [place].2.[place] [phone] Pa dical nal 220 [facility] 2019-04-30 2019-04-30 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[place], 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 Main [facility] 1.2.8 40.114 [id number] Univers 09:32:20 09:47:20 Visit Sriram Heath [place] 350.1.13.10 ity of [place].2.7.2.[place] [phone] Pa dical nal 353 [facility] 2019-04-30 2019-04-30 Outpatient [facility] [id number] Univers 09:45:00 09:45:00 SRIRAM fergusony o f [facility] 2019-04-30 2019-04-30 Telephone [facility] 1.2.840.114 [id number] Univers 00:00:00 00:00:00 Wondiful A [facility] 350.1.13.10 ity of [place] 4.2.7.2.686 Bernabe as Professio [phone] Pa dical nal 044 [facility] 2019-04-28 2019-04-28 Office [facility] 1.2.840.114 [id number] Univers 13:21:45 14:34:07 Visit Sriram Palomo 350.1.13.10 ity of [place] 4.2.7.2.[place] [phone] Pa dical nal 059 [facility] 2019-04-28 2019-04-28 Outpatient [facility] [id number] Univers 13:20:00 13:20:00 SRIRAM ity o f [facility] 2019-04-09 2019-04-09 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[place], 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 Main [facility] 1.2.8 40.114 [id number] Univers 16:15:01 16:30:01 Visit Alexey Castle 350.1.13.10 ity of [place]2.7.2.[place] [phone] Pa dical nal 353 [facility] 2019-04-09 2019-04-09 Office [facility] 1.2.840.114 [id number] Univers 15:08:31 15:58:05 Visit Alexey Dewey 350.1.13.10 i ty of [place] 4.2.7.2.[place] [phone] Me dical nal 220 [facility] 2019-04-09 2019-04-09 Orders Doctor YANA 1.2.840.114 [id number] Univers 00:00:00 00:00:00 Only Unassigned, CARLOS 350.1.13.10 ity of [place] [facility] 4.2.7.2.686 Bernabe as [phone] [address] 2019-03-14 2019-03-30 Nurse Visit, [facility] Nurse [facility] 1.2.840.1 14 [id number] Univers 08:39:08 18:06:53 Visit Dago Grsos 350.1.13. 10 it[place]2.[place].2.[place] [phone] [facility] 059 [facility] 2019-03-28 2019-03-28 Telephone Major [facility] 1.2.840.114 [id number] Univers 00:00:00 00:00:00 Wondiful A Health 350.1.13.10 ity of [place] 4.2.7.2.686 Bernabe as Professio [phone] [facility] 044 [facility] 2019-03-24 2019-03-24 Telephone Major [facility] 1.2.840.114 [id number] Univers 00:00:00 00:00:00 Wondiful A Health 350.1.13.10 ity of [place] 4.2.7.2.686 Bernabe as Professio [phone] [facility] 044 [facility] 2019-03-14 2019-03-14 Outpatient R GINNY [facility] [id number] Univers 09:15:00 09:37:46 SENDIL ity of [facility] 2019-03-14 2019-03-14 Orders Doctor YANA 1.2.840.114 [id number] Univers 00:00:00 00:00:00 Only Unassigned, CARLOS 350.1.13.10 ity of [place] [facility] 4.2.7.2.686 Bernabe as [phone] [address] 2019-03-06 2019-03-06 Telephone [facility] 1.2.840.114 [id number] Univers 00:00:00 00:00:00 Wondiful A Health 350.1.13.10 ity of [place] 4.2.7.2.686 Bernabe as Professio [phone] [place] [address] [address] Office Building One 2019-01-27 2019-01-27 Outpatient [facility] [id number] Univers 14:20:00 14:44:45 SRIRAM fergusony o f [facility] 2019-01-19 2019-01-19 Emergency X [facility] [id number] Univers 10:06:29 15:10:00 EVAN alvino [facility] 2019-01-06 2019-01-06 Outpatient [facility] [id number] Univers 15:00:00 15:00:00 WONRAKELPASTOR de oliveira o f [facility] 2018-12-11 2018-12-11 Outpatient [facility] [id number] Univers 08:45:00 08:45:00 EKATERINA martykelsie [facility] 2018-11-01 2018-11-01 Telephone [facility] 1.2.840.114 [id number] Univers 00:00:00 00:00:00 Wissa HEALTH 350.1.13.10 it y of [facility] 4.2.7.2.686 [facility] [phone] [facility] Primary & [facility] 2018-10-31 2018-10-31 Telephone [facility] 1.2.840.114 [id number] Univers 00:00:00 00:00:00 Wondiful A Health 350.1.13.10 ity of [place] 4.2.7.2.686 Bernabe as Professio [phone] [address] Office Building One 2018-10-30 2018-10-30 Telephone [facility] 1.2.830.482 [id number] Univers 00:00:00 00:00:00 Madeleinephilip Cerdaen HEALTH 350.1.13.10 ity of [place] 4.2.7.2.686 [facility] [phone] [facility] Primary & 059 [place] [facility] 2018-10-30 2018-10-30 Telephone [facility] 1.2.840.114 [id number] Univers 00:00:00 00:00:00 Wondiful A Health 350.1.13.10 ity of [place] 4.2.7.2.686 Bernabe as Professio [phone] [facility] 0[address] [place] Office Building One 2018-10-29 2018-10-29 Office Cookie, [facility] 1.2.840.114 [id number] [facility] 13:11:56 13:52:23 Visit Emily Health 350.1.13.10 i ty of [place] 4.2.7.2.686 Bernabe as Professio [phone] [facility] 0[address] [place] Office Building One 2018-10-28 2018-10-29 Office Salvador, Luís Heart Failure Cardio [facility] 1.2.840.114 [id number] [facility] 15:47:43 12:03:16 Visit Edgar Cortés [place] 350.1 .13.10 [place] of [place] [phone] [facility] 059 [facility] 2018-10-28 2018-10-28 Hospital Nate [facility] 1.2.840.114 [id number] [facility] 16:46:06 23:59:00 Encounter Madeleine Rica [place] 350.1.13.10 ity of [place]2.[place].2.[place] [phone] [facility] 807 [place] 2018-10-28 2018-10-28 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1, Adc Lab [facility] 1.2.840.114 [id number] [facility] 16:41:14 16:56:14 Visit Madeleine [place] 350.1.13.10 ity of [place] 4.2.7.2.[place] [phone] [facility] [address] 2018-10-28 2018-10-28 Orders Doctor YANA 1.2.840.114 [id number] Univers 00:00:00 00:00:00 Only Unassigned, CARLOS 350.1.13.10 ity of [place] [facility] 4.2.7.2.686 Bernabe as [phone] [facility] [address] 2018-10-24 2018-10-24 Refill Willian, [facility] 1.2.840.114 [id number] Univers 00:00:00 00:00:00 Wissam HEALTH 350.1.13.10 it y of [place].2.7.2.686 [place] [phone] [facility] 2018-10-14 2018-10-14 Refill Freddy, [facility] 1.2.840.114 [id number] Univers 00:00:00 00:00:00 Min [place] 350.1.13.10 i ty of [place].2.7.2.[place] [phone] [facility] [address] [place] Building 2018-10-01 2018-10-01 Orders Doctor YANA 1.2.840.114 [id number] Univers 00:00:00 00:00:00 Only Unassigned, CARLOS 350.1.13.[address] [place] [facility] 4.2.7.2.686 Bernabe as [phone] [facility] [address] 2018-09-26 2018-09-26 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Lab, [facility] Fam Pob I [facility] 1.2. 840.114 [id number] Univers 13:45:07 15:25:16 Visit Josiane Gonsalvespastor A Health 350.1.13.1 0 ity of [place] 4.2.7.2.686 Bernabe as Professio [phone] [facility] [address] [place] [address] Building One 2018-09-26 2018-09-26 Telephone Fac, [facility] 1.2.840.114 [id number] Univers 00:00:00 00:00:00 Heart HEALTH 350.1.13.10 it y of Failure [place] 4.2.7.2.686 [place] [phone] [facility] Primary & [address] [place] [address] Specialty Care 2018-09-10 2018-09-10 Office Major [facility] 1.2.840.114 [id number] Univers 12:36:16 13:37:40 Visit Noahdiful A Health 350.1.13.10 ity of [place] 4.2.7.2.686 Bernabe as Professio [phone] Pa dical nal [address] [place] [address] Building One 2018-09-02 2018-09-02 Orders Doctor YANA 1.2.840.114 [id number] Univers 00:00:00 00:00:00 Only Unassigned, CARLOS 350.1.13.10 ity of [place] [facility] 4.2.7.2.686 Bernabe as [phone] [address] Results Test Description Test Time Test Comments Results Result Comments Source POCT GLUCOSE (AUTOMATED) 2022-02-19 18:34:13 Test Item Value Reference Range Interpretation Comme nts POCT GLU (test code = 5027076619) 354 mg/dL 70-110 H Lab Interpretation (test code = 60193-7) [facility] 14:51:34 Test Item Value Reference Range Interpretation Comments POCT GLU (test code = 5535594573) 158 mg/dL 70-110 H Lab Interpretation (test code = Abnormal 10026-7) [facility]2022-02-19 07:09:11 Test Item Value Reference Range Interpretation Comments POCT GLU (test code = 5349561919) 109 mg/dL 70-110 Lab Interpretation (test code = Normal 01027-9) [facility] GLUCOSE (AUTOMATED)2022-02-19 06:15:00 Test Item Value Reference Range Interpretation Comments POCT GLU (test code = [id number]) 56 mg/dL 70-110 L Lab Interpretation (test code = Abnormal 15342-9) [facility] GLUCOSE (AUTOMATED)2022-02-19 03:41:03 Test Item Value Reference Range Interpretation Comments POCT GLU (test code = [id number]) 197 mg/dL 70-110 H Lab Interpretation (test code = Abnormal 48959-4) [facility] GLUCOSE (AUTOMATED)2022-02-18 23:17:16 Test Item Value Reference Range Interpretation Comments POCT GLU (test code = [id number]) 240 mg/dL 70-110 H Lab Interpretation (test code = Abnormal 96698-8) [facility] GLUCOSE (AUTOMATED)2022-02-18 18:24:23 Test Item Value Reference Range Interpretation Comments POCT GLU (test code = [id number]) 274 mg/dL 70-110 H Lab Interpretation (test code = Abnormal 65055-5) [facility]:24:18 Test Item Value Reference Range Interpretation Comments POCT GLU (test code = 9860430756) 92 mg/dL 70-110 Lab Interpretation (test code = Normal 23893-1) [facility] Ch[facility], Triglycerides, HDL[facility] - [id number] 12:27:34 Test Item Value Reference Range Interpretation Comments CHOL (test code = 146 mg/dL 120-200 9489477270) HDL (test code = 54 mg/dL See_Comment [Automated message] 1156309737) The system Hitch generated this result transmit luis miguel reference range : >=50. The refer ence range was not u sed to interpret th is result as normal/abnormal . HDLC RATIO (test code = See_Comment [Au tomated message] 3035720133) The system Hitch generated this result transmit luis miguel reference range : <=4.5. The refe rence range was not u sed to interpret th is result as normal/abnormal . TRIG (test code = 113 mg/dL 30-170 6115600775) LDL CHOL (test code = 69 mg/dL See_Comment [Auto mated message] 44204-0) The system Hitch generated this result transmit luis miguel reference range : <=160. The refe rence range was not u sed to interpret th is result as normal/abnormal . VLDL (test code = 23 mg/dL 5-60 4497276103) Lab Interpretation (test Normal code = 52648-0) [id number] 12:27:34 Test Item Value Reference Range Interpretation Comments NT-proBNP (test code 00839 pg/mL See_Comment H [Autom ated = 9713282682) message] The system which generated this result transmitted reference range : <=450. The reference range was not used to interpret this result as normal/abnormal . SEN (test code = SEN) Biotin has been reported to cause a negative bias, interpret results relative to patient's use of biotin. Lab Interpretation Abnormal (test code = 69691-8) [facility] (NA, K, CL, CO2, GLUCOSE, BUN, CREATININE, CA)2022-02-18 12:27:14 Test Item Value Reference Range Interpretation Comments NA (test code = 137 mmol/L 135-145 0604591977) K (test code = 4.0 mmol/L 3.5-5.0 6062867336) CL (test code = 104 mmol/L 98-108 2967667909) CO2 TOTAL (test code = 25 mmol/L 23-31 3231112033) AGAP (test code = 2-16 5827029950) BUN (test code = 62 mg/dL 7-23 H 4253479316) GLUCOSE (test code = 90 mg/dL 70-110 6119313597) CREATININE (test code = 2.02 mg/dL 0.50-1.04 H 3924338614) CALCIUM (test code = 8.3 mg/dL 8.6-10.6 L 0064910427) eGFR (test code = mL/min/1.73m2 1277290658) SEN (test code = SEN) Association of [...] tests). Lab Interpretation Abnormal (test code = 36013-1) [facility] WITH [id number] 11:30:43 Test Item Value Reference Range Interpretation [...] RDW-SD (test code = 46.4 fL 39.0-49.9 42722-6) RDW-CV (test code = 13.2 % 12.0-15.5 788-0) PLT (test code = See_Comment [Automated 777-3) message] The sy stem which generated this result transmitted reference range : 166 - 358 10*3/ ?L. The reference r beltran was not used to interpret this result as normal/abnormal . MPV (test code = 13.0 fL 9.5-12.9 H 36658-0) NRBC/100 WBC (test See_Comment [Automat ed code = 0006475100) message] The system which generated this result transmitted reference range : 0.0 - 10.0 /100 WBCs. The refer ence range was not u sed to interpret th is result as normal/abnormal . NRBC x10^3 (test code See_Comment [Auto mated = 8098070436) message] The s ystem which generated this result transmitted reference range : 10*3/?L. The reference range was not used to interpret this result as normal/abnormal . GRAN MAT (NEUT) % 58.4 % (test code = 770-8) IMM GRAN % (test code 0.30 % = 8140662887) LYMPH % (test code = 27.5 % 736-9) MONO % (test code = 9.3 % 5905-5) EOS % (test code = 4.2 % 713-8) BASO % (test code = 0.3 % 706-2) GRAN MAT x10^3(ANC) 3.71 10*3/uL 1.88-7.09 (test code = 3900925839) IMM GRAN x10^3 (test 0.00-0.06 code = 1230416678) LYMPH x10^3 (test code 1.75 10*3/uL 1.32-3.29 = 731-0) MONO x10^3 (test code 0.59 10*3/uL 0.33-0.92 = 742-7) EOS x10^3 (test code = 0.27 10*3/uL 0.03-0.39 711-2) BASO x10^3 (test code 0.01-0.07 = 704-7) Lab Interpretation Abnormal (test code = 29437-8) [facility] GLUCOSE (AUTOMATED)2022-02-18 02:39:08 Test Item Value Reference Range Interpretation Comments POCT GLU (test code = 6389300172) 196 mg/dL 70-110 H Lab Interpretation (test code = Abnormal 93411-7) [facility] GLUCOSE (AUTOMATED)2022-02-17 23:16:54 Test Item Value Reference Range Interpretation Comments POCT GLU (test code = 1351567140) 140 mg/dL 70-110 H Lab Interpretation (test code = Abnormal 06076-8) [facility] 19:44:53 Test Item Value Reference Range Interpretation Comments Height (test code = in 0563216590) Weight (test code = lbs 4815490626) Systolic BP (test code = mmHg 0386133597) Diastolic BP (test code mmHg = 3523253271) Heart Rate (test code = bpm 6020731132) BSA (test code = 1.81 m2 1280095212) Ao root diam (test code 3.30 cm = 3490380545) Aortic root (test code = 3.3 cm 2086749087) Ao root annulus (test 3.3 cm code = 6918309550) LVOT diameter (test code 1.89 cm = 5372390441) LVOT area (test code = 2.80 cm2 0983075146) LAV(MOD-sp4) (test code 52.90 mL = 4454062770) E wave decelartion time 0.17 s (test code = 9552050453) MV stenosis pressure 1/2 51.3 ms time (test code = 1580359139) MV Peak E Mily (test code 95.2 cm/s = 6489325275) MV Peak A Mily (test code 61.8 cm/s = 0370020640) E/A ratio (test code = ratio 5983632084) MV Prop V (test code = 23.30 cm/s 5481746864) MV E/e' septal (test 7.8 cm/s code = 3476040199) TR Peak Mily (test code = 310.8 cm/s 3347172068) Triscuspid Valve mmHg Regurgitation Peak Gradient (test code = 1815029890) Tapse (test code = 1.99 cm 2410363726) LVOT stroke volume (test 40.40 cm3 code = 1225800778) LVOT peak mily (test code 67.8 cm/s = 0380920456) LVOT mn grad (test code mmHg = 9230655295) AV LVOT peak gradient mmHg (test code = 4921097617) LVOT peak VTI (test code 14.4 cm = 3673021493) LV V1 mean (test code = 45.30 cm/s 9363001027) MR max PG (test code = 65.40 mm[Hg] 8857505425) MR max mily (test code = 404.30 cm/s 5169036288) Mr max mily (test code = 404.3 m/s 6003613985) LVIDD (test code = 6.30 cm 8302895695) Left Ventricular End 202.4 mL Diastolic Volume by Teichholz Method (test code = 5132239) IVS (test code = 0.94 cm 1888766888) Interventricular Septum 0.94 cm Diastolic Thickness by 2D (test code = 5824005) LVPWD (test code = 0.94 cm 2700012213) PW (test code = 0.94 cm 0.6-1.5 5471993300) EF(Teich) (test code = 19.10 % 7036340406) LVIDS (test code = 5.80 cm 1751495012) Left Ventricular End 163.8 mL Systolic Volume by Teichholz Method (test code = 8090457) FS (test code = 9 % 9311175493) EF - 2D (test code = 19.10 % 39647456) LA size (test code = 3.5 cm 1929444330) Radiology Study observation (narrative) (test code = 12300-0) SEN (test code = SEN) Table formatting [...] mL of Lumason ultrasound enhancing agent used. [facility] GLUCOSE (AUTOMATED)2022-02-17 18:19:03 Test Item Value Reference Range Interpretation Comments POCT GLU (test code = 9041761619) 160 mg/dL 70-110 H Lab Interpretation (test code = Abnormal 69536-5) [facility] GLUCOSE (AUTOMATED)2022-02-17 14:06:55 Test Item Value Reference Range Interpretation Comments POCT GLU (test code = 8169768799) 101 mg/dL 70-110 Lab Interpretation (test code = Normal 13678-4) [facility] GLUCOSE (AUTOMATED)2022-02-17 03:58:48 Test Item Value Reference Range Interpretation Comments POCT GLU (test code = 0912171704) 278 mg/dL 70-110 H Lab Interpretation (test code = Abnormal 26379-5) [facility] GLUCOSE (AUTOMATED)2022-02-17 03:21:46 Test Item Value Reference Range Interpretation Comments POCT GLU (test code = 3491507376) 279 mg/dL 70-110 H Lab Interpretation (test code = Abnormal 99252-4) [facility]22-[facility]-17 01:58:04 Test Item Value Reference Range Interpretation Comments HGB A1C (test code = 10.0 % 4.0-5.7 H 4548-4) SEN (test code = SEN) Reference RangesNormal: <5.7%Prediabetes: 5.7 - 6.4%Diabetes: > 6.5% Lab Interpretation (test Abnormal code = 60615-4) [facility] [id number] 17:30:57 Test Item Value Reference Interpretation Comments Range TROPONIN I (test 0.028 ng/mL See_Comment [Automated code = 6445358241) message] The system which generated this result [...] biotin. Lab Interpretation Normal (test code = 00524-0) [facility] [id number] 17:27:54 Test Item Value Reference Range Interpretation Comments NT-proBNP (test code 42441 pg/mL See_Comment H [Autom ated = 0825007391) message] The system which generated this result transmitted reference range : <=450. The reference range was not used to interpret this result as normal/abnormal . SEN (test code = SEN) Biotin has been reported to cause a negative bias, interpret results relative to patient's use of biotin. Lab Interpretation Abnormal (test code = 95660-0) [facility] (NA, K, CL, CO2, GLUCOSE, BUN, CREATININE, CA)2022-02-16 17:19:15 Test Item Value Reference Range Interpretation Comments NA (test code = 135 mmol/L 135-145 9437860897) K (test code = 4.7 mmol/L 3.5-5.0 2064822481) CL (test code = 104 mmol/L 98-108 6228784947) CO2 TOTAL (test code = 23 mmol/L 23-31 6740093849) AGAP (test code = 2-16 1872116816) BUN (test code = 58 mg/dL 7-23 H 6603011337) GLUCOSE (test code = 260 mg/dL 70-110 H 3651260054) CREATININE (test code = 1.78 mg/dL 0.50-1.04 H 3543890549) CALCIUM (test code = 8.2 mg/dL 8.6-10.6 L 5346386842) eGFR (test code = mL/min/1.73m2 3512736063) SEN (test code = SEN) Association of [...] tests). Lab Interpretation Abnormal (test code = 90900-0) [facility] (ALB,T.PRO,BILI T,BU/BC,ALT,AST,ALK PHOS)2022-02-16 17:19:15 Test Item Value Reference Range Interpretation Comments TOTAL BILI (test code = 8970857357) 0.4 mg/dL 0.1-1.1 BILI UNCON (test code = 3996759280) 0.3 mg/dL 0.1-1.1 BILI CONJ (test code = 4915576652) 0.0 mg/dL 0.0-0.3 T PROTEIN (test code = 1070645153) 6.8 g/dL 6.3-8.2 ALBUMIN (test code = 3222540159) 3.8 g/dL 3.5-5.0 ALK PHOS (test code = 0753493785) 146 U/L 34-122 H ALTv (test code = 1742-6) 29 U/L 5-35 AST(SGOT) (test code = 4509785333) 28 U/L 13-40 Lab Interpretation (test code = Abnormal 92624-9) [facility] 17:19:15 Test Item Value Reference Range Interpretation Comments LIPASE (test code = 9850661253) 46 U/L 0-220 Lab Interpretation (test code = Normal 87564-9) [facility] [id number] 17:12:53 Test Item Value Reference Range Interpretation [...] RDW-SD (test code = 47.8 fL 39.0-49.9 57503-9) RDW-CV (test code = 13.5 % 12.0-15.5 788-0) PLT (test code = See_Comment [Automated 777-3) message] The sy stem which generated this result transmitted reference range : 166 - 358 10*3/ ?L. The reference r beltran was not used to interpret this result as normal/abnormal . MPV (test code = 12.9 fL 9.5-12.9 07836-1) NRBC/100 WBC (test See_Comment [Automat ed code = 9928146211) message] The system which generated this result transmitted reference range : 0.0 - 10.0 /100 WBCs. The refer ence range was not u sed to interpret th is result as normal/abnormal . NRBC x10^3 (test code See_Comment [Auto mated = 1981848153) message] The s ystem which generated this result transmitted reference range : 10*3/?L. The reference range was not used to interpret this result as normal/abnormal . GRAN MAT (NEUT) % 75.4 % (test code = 770-8) IMM GRAN % (test code 0.20 % = 6800819604) LYMPH % (test code = 14.9 % 736-9) MONO % (test code = 7.7 % 5905-5) EOS % (test code = 1.6 % 713-8) BASO % (test code = 0.2 % 706-2) GRAN MAT x10^3(ANC) 6.77 10*3/uL 1.88-7.09 (test code = 7753732920) IMM GRAN x10^3 (test 0.00-0.06 code = 5625626061) LYMPH x10^3 (test code 1.34 10*3/uL 1.32-3.29 = 731-0) MONO x10^3 (test code 0.69 10*3/uL 0.33-0.92 = 742-7) EOS x10^3 (test code = 0.14 10*3/uL 0.03-0.39 711-2) BASO x10^3 (test code 0.01-0.07 = 704-7) Lab Interpretation Abnormal (test code = 89138-5) [facility] HEMOGLOBIN A1C [id number] 15:15:00 Test Item Value Reference Range Interpretation Comments POCT HBA1C (test code = 4548-4) 7.6 % 4-6 A Lab Interpretation (test code = Abnormal 32416-4) [facility] HEMOGLOBIN A1C [id number] 15:15:00 Test Item Value Reference Range Interpretation Comments POCT HBA1C (test code = 4548-4) 7.6 % 4-6 A Lab Interpretation (test code = Abnormal 05033-2) [facility]
[2022-06-24 04:05] LABS: Absolute Lymphocytes (CBC) 1.1 K/uL (0.7-4.9); Hematocrit 31.4 % (36.0-45.0); Lymphocytes % 12.2 % (15.3-44.8); MCV 93.9 fL (80-100); MPV 10.7 fL (7.6-11.3); RBC Red Blood Cell Count 3.34 M/uL (3.86-4.86)
[2022-06-24 04:19] LABS: Protime INR 1.1
[2022-06-24] MEDS ORDERED: MORPHINE 2 MG/ML SYR ONE (04:22)
[2022-06-24] MEDS ORDERED: ONDANSETRON 4 MG/2 ML VIAL ONE (04:22)
[2022-06-24] MEDS ORDERED: FUROSEMIDE 20 MG/ 2ML VIAL ONE (04:22)
[2022-06-24 04:31] LABS: Albumin 3.2 g/dL (3.4-5.0); Bilirubin Direct 0.1 mg/dL (0-0.2); Bilirubin Total 0.2 mg/dL (0.2-1.0); Potassium 4.6 mEq/L (3.5-5.1); Protein, Total 7.3 g/dL (6.4-8.2); Troponin High Sensitivity 28.2 pg/mL (<58.9)
--- NOTE | 2022-06-24 05:05 | EDPHYS ---
Physician Documentation [facility] Name: Teena Simpson Age: 77 yrs Sex: Female : 1945 Arrival Date: 06/24/2022 Time: 03:16 Bed 14 Private MD: ED Physician Jacky Casper HPI: 06/24 03:26 This 77 yrs old Female presents to ER via Unassigned with complaints of Chest sp4 Pain, Shortness Of Breath, Back Pain. 04:11 77-year-old female with past medical history of type 2 diabetes, CKD, CKD stage IV, sp4 systolic diastolic congestive heart failure, atrial fibrillation, status post AICD, presents with worsening chest pain starting last night also shortness of breath, bilateral lower extremity swelling with chest pain radiating into her back. Patient was admitted here on 05/17/2022 discharged 05/19/2022 for hyperglycemia, orthostatic hypotension, dehydration, acute on chronic renal insufficiency, hypovolemic hyponatremia, systolic diastolic heart failure, atrial fibrillation, and hypertension. Patient's medications include Eliquis, atorvastatin, insulin NPH, Dilantin, insulin lispro, metoprolol succinate, amiodarone, amlodipine, however patient states that her on line csr took her off Lasix. . Historical: - Allergies: 03:27 Cipro; as6 03:27 Augmentin; as6 - PMHx: 03:27 Hypertension; Low HR; Myocardial infarction; neuropathy; High Cholesterol; Kidney as6 failure stage 4; Diabetes - IDDM; CHF; Atrial Fib; Seizures; Anxiety; - PSHx: 03:27 Appendectomy; Pacemaker-Defib; as6 - Immunization history:: Client reports receiving the 2nd dose of the Covid vaccine, moderna. - Social history:: Smoking status: Patient denies any tobacco usage or history of. - Family history:: not pertinent. ROS: 04:11 Constitutional: Negative for fever, chills, and weight loss, positive generalized sp4 weakness Eyes: Negative for injury, pain, redness, and discharge, ENT: Negative for injury, pain, and discharge, Neck: Negative for injury, pain, and swelling, Cardiovascular: Negative for palpitations, positive for chest pain positive for worsening chest pain with radiation into the back, positive for dyspnea Respiratory: Negative for shortness of breath, cough, wheezing, and pleuritic chest pain, Abdomen/GI: Negative for abdominal pain, nausea, vomiting, diarrhea, and constipation, Back: Negative for injury and pain, : Negative for injury, bleeding, discharge, and swelling, MS/Extremity: Negative for injury and deformity, Skin: Negative for injury, rash, and discoloration, Neuro: Negative for headache, weakness, numbness, tingling, and seizure, Psych: Negative for depression, anxiety, Allergy/Immunology: Negative for hives, rash, and allergies Endocrine: Negative for neck swelling, polydipsia, polyuria, polyphagia, and weight changes Hematologic/Lymphatic: Negative for swollen nodes, abnormal bleeding, and unusual bruising Exam: 04:11 Constitutional: This is a well developed, well nourished patient who is awake, alert, sp4 and in no acute distress patient is ill-appearing but nontoxic. Head/Face: Normocephalic, atraumatic. Eyes: Pupils equal round and reactive to light, extra-ocular motions intact. Lids and lashes normal. Conjunctiva and sclera are not injected. Cornea within normal limits. Periorbital areas with no swelling, redness, or edema. ENT: Nares patent. No nasal discharge, no septal abnormalities noted. Tympanic membranes are normal and external auditory canals are clear. Oropharynx with no redness, swelling, or masses, exudates, or evidence of obstruction, uvula midline. Mucous membranes moist. Neck: Trachea midline, no thyromegaly or masses palpated, and no cervical lymphadenopathy. Supple, full range of motion without nuchal rigidity, or vertebral point tenderness. No Meningismus. Positive JVD Chest/axilla: Normal chest wall appearance and motion. Nontender with no deformity. No lesions are appreciated. Cardiovascular: Regular rate and rhythm with a normal S1 and S2. No gallops, murmurs, or rubs. Normal PMI, positive JVD. No pulse deficits. Bilateral lower extremity edema with signs of volume overload, facial swelling Respiratory: Lungs have equal breath sounds bilaterally, clear to auscultation and percussion. No rales, rhonchi or wheezes noted. No increased work of breathing, no retractions or nasal flaring. Abdomen/GI: Soft, non-tender, with normal bowel sounds. No distension or tympany. No guarding or rebound. No evidence of tenderness throughout. Back: No spinal tenderness. No costovertebral tenderness. Skin: Warm, dry with normal turgor. Normal color with no rashes, no lesions, and no evidence of cellulitis. MS/ Extremity: Pulses equal, no cyanosis. Neurovascular intact. Full, normal range of motion. Neuro: Awake and alert, GCS 15, oriented to person, place, time, and situation. Cranial nerves II-XII grossly intact. Motor strength 5/5 in all extremities. Sensory grossly intact. Psych: Awake, alert, with orientation to person, place and time. Behavior, mood, and affect are within normal limits 04:11 ECG was reviewed by the Attending Physician. EKG time 0 356, there is paced rhythm at sp4 the rate of 94 Vital Signs: 03:25 BP 118 / 61; Pulse 92; Resp 18 S; Temp 98.8(O); Pulse Ox 95% on R/A; Weight 78.02 kg as6 (R); Height 5 ft. 0 in. (R); Pain 10/10; 03:50 BP 113 / 57; Pulse 95; Resp 19; Pulse Ox 95% on R/A; kl 05:17 BP 123 / 61; Pulse 107; Resp 24; Pulse Ox 95% on 3 lpm NC; kl 05:57 BP 115 / 61; Pulse 99; Resp 20; Pulse Ox 95% on 3 lpm NC; kl 03:25 Body Mass Index 33.59 (78.02 kg, 152.4 cm) as6 03:25 Pain Scale: Adult as6 MDM: 03:26 Patient medically screened. sp4 05:05 Differential diagnosis: acute myocardial infarction, acute pericarditis, anxiety, sp4 coronary artery disease chest wall pain, congestive heart failure esophagitis, gastritis. HEART Score: History: Highly Suspicious (2), ECG: Non specific repolarization disturbance / LBTB / PM (1), Age: > or = 65 years (2), Risk Factors: > or = 3 Risk factors for atherosclerotic disease (2), Troponin: < or = 1 x Normal Limit (0), Total Score = 7. The patient was given aspirin in the Emergency Department. Data reviewed: vital signs, nurses notes, old medical records, lab test result(s), cardiac enzymes, CBC, electrolytes, hepatic panel, EKG, radiologic studies, plain films. ED course: Chest x-ray revealed pulmonary vascular congestion, mild pulmonary edema, consistent with acute CHF and volume overload. Troponin is negative. Patient warrants admission for IV diuretics. She may need to be restarted on her p.o. Lasix.. 06/24 03:26 Order name: Basic Metabolic Panel; Complete Time: 05:03 4 06/24 03:26 Order name: CBC with Diff; Complete Time: 05:03 4 06/24 03:26 Order name: LFT's; Complete Time: 05:03 4 06/24 03:26 Order name: NT PRO-BNP; Complete Time: 05:03 4 06/24 03:26 Order name: PT-INR; Complete Time: 05:03 4 06/24 03:26 Order name: Troponin HS; Complete Time: 05:03 4 06/24 05:02 Order name: SARS RAPID; Complete Time: 06:12 4 06/24 05:02 Order name: Flu; Complete Time: 06:12 sb4 06/24 03:26 Order name: XRAY Chest (1 view) 4 06/24 03:26 Order name: EKG; Complete Time: 03:27 4 06/24 03:26 Order name: Cardiac monitoring 4 06/24 03:26 Order name: EKG - Nurse/Tech 4 06/24 03:26 Order name: IV Saline Lock 4 06/24 03:26 Order name: Labs collected and sent 4 06/24 03:26 Order name: O2 Per Protocol 4 06/24 03:26 Order name: O2 Sat Monitoring 4 EC:11 Rate is 94 beats/min. Rhythm is regular, Paced. Interpreted by me. sp4 Administered Medications: 04:10 Drug: Furosemide IVP 20 mg Route: IVP; Site: left antecubital; kl 06:18 Follow up: Response: No adverse reaction kl 04:12 Drug: morphine IVP or IV 2 mg Route: IVP; Infused Over: 4 mins; Site: left antecubital; kl 06:18 Follow up: Response: No adverse reaction; Marked relief of symptoms kl 04:23 Drug: Ondansetron IVP 4 mg Route: IVP; Site: left antecubital; kl 06:18 Follow up: Response: No adverse reaction kl 05:02 Drug: Acetaminophen PO 1000 mg Route: PO; kl 06:17 Follow up: Response: No adverse reaction; Marked relief of symptoms kl 06:13 Drug: Oseltamivir PO 75 mg Route: PO; 06:17 Follow up: Response: No adverse reaction kl Disposition Summary: 06/24/22 05:05 Hospitalization Ordered Hospitalization Status: Inpatient Admission sp4 Provider: Sylvie Fritz sp4 Condition: Stable sp4 Problem: new sp4 Symptoms: have improved sp4 Bed/Room Type: Standard sp4 Location: Telemetry/MedSurg (Inpatient)(06/24/22 06:10) mw Room Assignment: 222(06/24/22 06:10) mw Diagnosis - Acute coronary syndrome, congestive heart failure, volume overload, sp4 Forms: - Medication Reconciliation Form sp4 - SBAR form sp4 Signatures: Dispatcher [employer] EDViri Marques RN RN kl Webb, Martha, RN RN mw Slawson, Ashby, RN RN as6 Jacky Casper MD MD sp4 Corrections: (The following items were deleted from the chart) 06:02 05:05 sp4 mw 06:10 05:05 Telemetry/MedSurg (Inpatient) sp4 mw 06:10 06:02 203 mw mw
--- NOTE | 2022-06-24 05:05 | ER ---
Nurse's Notes [facility] [place] Name: Teena Simpson Age: 77 yrs Sex: Female : 1945 Arrival Date: 06/24/2022 Time: 03:16 Bed 14 Private MD: Diagnosis: Acute coronary syndrome, congestive heart failure, volume overload, Presentation: 06/24 03:25 Chief complaint: Patient states: "It started out with what felt like the flu but now as6 I'm having difficulty breathing and my chest and back are hurting". Coronavirus screen: At this time, the client does not indicate any symptoms associated with coronavirus-19. Ebola Screen: No symptoms or risks identified at this time. Initial Sepsis Screen: Does the patient meet any 2 criteria? No. Patient's initial sepsis screen is negative. Does the patient have a suspected source of infection? No. Patient's initial sepsis screen is negative. Risk Assessment: Do you want to hurt yourself or someone else? Patient reports no desire to harm self or others. Onset of symptoms is unknown. 03:25 Method Of Arrival: Wheelchair as6 03:25 Acuity: TYSON 3 as6 Triage Assessment: 06:12 General: Appears uncomfortable, Behavior is cooperative. kl Historical: - Allergies: 03:27 Cipro; as6 03:27 Augmentin; as6 - PMHx: 03:27 Hypertension; Low HR; Myocardial infarction; neuropathy; High Cholesterol; Kidney as6 failure stage 4; Diabetes - IDDM; CHF; Atrial Fib; Seizures; Anxiety; - PSHx: 03:27 Appendectomy; Pacemaker-Defib; as6 - Immunization history:: Client reports receiving the 2nd dose of the Covid vaccine, moderna. - Social history:: Smoking status: Patient denies any tobacco usage or history of. - Family history:: not pertinent. Screenin:51 [facility] ED Fall Risk Assessment (Adult) History of falling in the last 3 months, kl including since admission No falls in past 3 months (0 pts) Confusion or Disorientation No (0 pts) Intoxicated or Sedated No (0 pts) Impaired Gait No (0 pts) Mobility Assist Device Used No (0 pt) Altered Elimination No (0 pt). Abuse screen: Denies threats or abuse. Nutritional screening: No deficits noted. Tuberculosis screening: No symptoms or risk factors identified. Assessment: 03:49 Pain: Complains of pain in chest Pain does not radiate. Quality of pain is described as kl aching, Pain began gradually. Neuro: No deficits noted. Cardiovascular: Rhythm is sinus rhythm. Respiratory: Reports shortness of breath on exertion Airway is patent Trachea midline Respiratory effort is even, unlabored, Respiratory pattern is regular, symmetrical. GI: No deficits noted. No signs and/or symptoms were reported involving the gastrointestinal system. : No deficits noted. No signs and/or symptoms were reported regarding the genitourinary system. 05:02 Reassessment: Patient states symptoms have not improved. Respiratory: Breath sounds are kl coarse bilaterally. O2 sat 88% on room air O2 3l NC applied. 05:18 Reassessment: Patient appears in no apparent distress at this time. Patient and/or kl family updated on plan of care and expected duration. Pain level reassessed. Patient states feeling better. Patient states symptoms have improved. 05:56 Reassessment: Patient appears in no apparent distress at this time. Patient and/or kl family updated on plan of care and expected duration. Pain level reassessed. Patient states feeling better. Patient states symptoms have improved. Vital Signs: 03:25 BP 118 / 61; Pulse 92; Resp 18 S; Temp 98.8(O); Pulse Ox 95% on R/A; Weight 78.02 kg as6 (R); Height 5 ft. 0 in. (R); Pain 10/10; 03:50 BP 113 / 57; Pulse 95; Resp 19; Pulse Ox 95% on R/A; kl 05:17 BP 123 / 61; Pulse 107; Resp 24; Pulse Ox 95% on 3 lpm NC; kl 05:57 BP 115 / 61; Pulse 99; Resp 20; Pulse Ox 95% on 3 lpm NC; kl 03:25 Body Mass Index 33.59 (78.02 kg, 152.4 cm) as6 03:25 Pain Scale: Adult as6 ED Course: 03:17 Patient arrived in ED. ja2 03:25 Jacky Casper MD is Attending Physician. sp4 03:27 Triage completed. as6 03:28 Arm band placed on. as6 03:35 Patient has correct armband on for positive identification. Placed in gown. Bed in low kl position. Call light in reach. Side rails up X2. Client placed on continuous cardiac and pulse oximetry monitoring. NIBP monitoring applied. 03:51 No provider procedures requiring assistance completed. Inserted saline lock: 20 gauge kl in left antecubital area, using aseptic technique. Blood collected. Patient maintains SpO2 saturation greater than 95% on room air. 03:58 XRAY Chest (1 view) In Process Unspecified. EDMS 05:04 Sylvie Fritz MD is Hospitalizing Provider. sp4 06:12 Patient admitted, IV remains in place. kl Administered Medications: 04:10 Drug: Furosemide IVP 20 mg Route: IVP; Site: left antecubital; kl 06:18 Follow up: Response: No adverse reaction kl 04:12 Drug: morphine IVP or IV 2 mg Route: IVP; Infused Over: 4 mins; Site: left antecubital; kl 06:18 Follow up: Response: No adverse reaction; Marked relief of symptoms kl 04:23 Drug: Ondansetron IVP 4 mg Route: IVP; Site: left antecubital; kl 06:18 Follow up: Response: No adverse reaction 05:02 Drug: Acetaminophen PO 1000 mg Route: PO; kl 06:17 Follow up: Response: No adverse reaction; Marked relief of symptoms kl 06:13 Drug: Oseltamivir PO 75 mg Route: PO; kl 06:17 Follow up: Response: No adverse reaction Medication: 03:52 VIS not applicable for this client. Outcome: 05:05 Decision to Hospitalize by Provider. sp4 06:11 Admitted to Med/surg accompanied by tech, via wheelchair, room 222, Report called to dennis Mes[place] 06:11 Condition: improved 06:11 Discharge instructions given to patient, family, Instructed on the need for admit, Demonstrated understanding of instructions. 06:19 Patient left the ED. Signatures: Dispatcher [facility] Viri Raya RN RN kl Alexander, Jessica ja2 Slawson, Ashby, RN RN as6 Jacky Casper MD MD sp4
[2022-06-24] MEDS ORDERED: ACETAMINOPHEN 500 MG TAB ONE (05:06)
--- NOTE | 2022-06-24 05:09 | P.HP ---
Certification for Inpatient Patient admitted to: Inpatient With expected LOS: >2 Midnights Patient will require the following post-hospital care: None Practitioner: I am a practitioner with admitting privileges, knowledge of patient current condition, hospital course, and medical plan of care. Services: Services provided to patient in accordance with Admission requirements found in Title 42 Section 412.3 of the Code of Federal Regulations Patient History Date of Service: 06/24/22 Primary Care Provider: Shiva Reason for admission: CHF Exacerbation History of Present Illness: Ms. Simpson is a 77 year old female with past medical history of insulin dependent type 2 diabetes, chronic kidney disease stage IV, chronic combined sys tolic/diastolic congestive heart failure, atrial fibrillation s/p PPM/AICD on eliquis, and hypertension who was presented to the emergency department with complaints of chest pain and shortness of breath. She states that she initially thought she just had the flu but now it is becoming more difficult for her to breath, has chest pain that radiates into her back, and has noticed bilateral lower extremity swelling. Her diuretic regimen was changed recently, lasix has been held. Her chest xray today showed "Prominent interstitial markings suggestive of interstitial edema." Labs are significant for BUN 68, creatinine 1.91, BNP 24865, trop WNL. EKG without any acute changes. She is requiring 3L NC at this time. In the emergency department, she was given 20 mg lasix, morphine, zofran, and tylenol. Patient is admitted for further management. Allergies amoxicillin [From Augmentin] Adverse Reaction (Verified 05/06/22 04:49) Nausea/Vomiting ciprofloxacin Adverse Reaction (Verified 05/06/22 04:49) Nausea/Vomiting clavulanic acid [From Augmentin] Adverse Reaction (Verified 05/06/22 04:49) Nausea/Vomiting Home medications list reviewed: Yes Home Medications: Apixaban [Eliquis] 5 mg PO BID 08/07/21 Atorvastatin Calcium [Lipitor] 40 mg PO BEDTIME 08/07/21 Insulin NPH Human Isophane [Novolin N] 30 unit SQ 0800,199908/07/21 PHENYTOIN ER Cap [Dilantin ER Cap*] 100 mg PO BID 08/07/21 Insulin Lispro [Humalog*] 25 unit SQ BID 11/04/21 Furosemide [Lasix*] 40 mg PO BIDL #60 tab 05/09/22 Metoprolol Succinate [Toprol Xl*] 50 mg PO BID 6AM 6PM #60 tab 05/09/22 Amiodarone HCl [Cordarone*] 200 mg PO DAILY 05/19/22 Amlodipine [Norvasc*] 10 mg PO DAILY 05/19/22 - Past Medical/Surgical History Diabetic: Yes -: seizures -: Atrial fibrillation on chronic anticoagulation -: Diabetes mellitus type 2insulin-dependent -: hypertension -: hyperlipidemia -: Chronic systolic congestive heart failure -: CAD -: CKD 4 -: neuropathy -: defib/pacemaker placement x2 -: exploratory lap -: appendectomy Psychosocial/ Personal History: Patient lives at home with family - Family History Father -: Lung disease Mother -: Heart disease, Hypertension, Diabetes Sister -: Diabetes Brother -: Diabetes, Kidney disease - Social History Smoking Status: Never smoker Alcohol use: No CD- Drugs: No Caffeine use: No Place of Residence: Home Review of Systems Respiratory: Shortness of Breath Cardiovascular: Chest Pain Physical Examination - Vital Signs Temperature: 98.8 F Blood Pressure: 113/57 Pulse: 95 Respirations: 19 Pulse Ox (%): 95 - Physical Exam General: Alert, In no apparent distress HEENT: Atraumatic, EOMI, Sclerae nonicteric Neck: Supple, 2+ carotid pulse no bruit Respiratory: Crackles/rales Cardiovascular: Regular rate/rhythm, Normal S1 S2 Gastrointestinal: Normal bowel sounds, No tenderness Musculoskeletal: No tenderness Integumentary: No rashes Neurological: Normal speech, Normal affect - Studies Laboratory Data (last 24 hrs) 06/24/22 03:40: PT 12.1, INR 1.10 06/24/22 03:40: WBC 8.70, Hgb 10.5 L, Hct 31.4 L, Plt Count 174 06/24/22 03:40: Sodium 136, Potassium 4.6, BUN 68 H, Creatinine 1.91 H, Glucose 186 H, Total Bilirubin 0.2, AST 34, ALT 41, Alkaline Phosphatase 141 H Assessment and Plan - Problems (Diagnosis) (1) CHF (congestive heart failure) Current Visit: Yes Status: Acute Qualifiers: Heart failure type: systolic Heart failure chronicity: acute on chronic Qualified Code(s): I50.23 - Acute on chronic systolic (congestive) heart failure (2) Atrial fibrillation Current Visit: Yes Status: Chronic Qualifiers: Atrial fibrillation type: paroxysmal Qualified Code(s): I48.0 - Paroxysmal atrial fibrillation (3) Anemia Current Visit: Yes Status: Chronic Qualifiers: Anemia type: due to chronic kidney disease Chronic kidney disease stage: stage 4 (severe) Qualified Code(s): N18.4 - Chronic kidney disease, stage 4 (severe); D63.1 - Anemia in chronic kidney disease (4) Morbid (severe) obesity due to excess calories Current Visit: Yes Status: Chronic (5) CKD (chronic kidney disease) Current Visit: Yes Status: Chronic Qualifiers: Chronic kidney disease stage: stage 4 (severe) Qualified Code(s): N18.4 - Chronic kidney disease, stage 4 (severe) (6) Diabetes Current Visit: Yes Status: Chronic Qualifiers: Diabetes mellitus type: type 2 Diabetes mellitus prison insulin use: wit h prison use Diabetes mellitus complication status: with hyperglycemia Qualified Code(s): E11.65 - Type 2 diabetes mellitus with hyperglycemia; Z79.4 - superintendent terminal (current) use of insulin (7) Hypertension Current Visit: Yes Status: Chronic Qualifiers: Hypertension type: primary hypertension Qualified Code(s): I10 - Essential (primary) hypertension (8) Coronary artery disease Current Visit: Yes Status: Chronic Qualifiers: Coronary Disease-Associated Artery/Lesion type: viejas artery [place] vs. tr ansplanted heart: viejas heart Associated angina: with unstable angina Qualified Code(s): I25.110 - Atherosclerotic heart disease of viejas coronary artery with unstable angina pectoris - Plan Patient is admitted for further management of acute on chronic systolic congestive heart failure. Consult cardiology and nephrology. Her diuretic regimen has been changed recently. Chest xray with pulmonary congestion and bilateral extremity edema present. She received 20 mg IV lasix in ED. Crackles on auscultation. She is requiring 3L NC. Titrate and wean as tolerated. Nebs PRN. Covid/flu pending. Echo 1.5 months ago "SEVERELY DEPRESSED LEFT VENTRICULAR EJECTION FRACTION 25- 30%. SEVERE GLOBAL HYPOKINESIS. MILD MITRAL AND TRICUSPID REGURGITATION. RIGHT VENTRICLE PACEMAKER WIRE IS SEEN." Trend troponin given her chest pain. Monitor on telemetry. Resume eliquis for VTE prophylaxis. ACHS accu checks with moderate sliding scale and diabetic diet. Check A1c, lipid panel, and TSH. Kidney function appears around baseline. Monitor and replete electrolytes per protocol. reconcile and continue home medications. Full code. Discharge Plan: Home Plan to discharge in: 48 Hours - Advance Directives Does patient have a Living Will: Yes Does patient have a Durable POA for Healthcare: No - Code Status/Comfort Care Code Status Assessed: Yes Code Status: Full Code Physician Review: Patient Assessed, Agree with Above Assessment and Plan Critical Care: No Time Spent Managing Pts Care (In Minutes): 50
[2022-06-24 05:47] LABS: SARS-CoV-2 Antigen Rapid Res Negative (Negative)
[2022-06-24] MEDS ORDERED: ALBUTEROL 2.5 MG/3 ML NEB SOL NEB PRN (06:11)
[2022-06-24] MEDS ORDERED: IPRATROPIUM BROM 0.5MG/2.5ML NEB PRN (06:11)
[2022-06-24] MEDS ORDERED: OSELTAMIVIR 75 MG CAP PO ONE (06:12)
[2022-06-24 06:18] VITALS: BMI 33.5
[2022-06-24] MEDS: APIXABAN 5 MG TABLET PO SCH ×2 (08:43→21:04)
[2022-06-24] MEDS: INSULIN -REGULAR HUMAN 50 UNIT/0.5 ML ML SQ SCH ×4 (08:43→21:04)
[2022-06-24] MEDS: FUROSEMIDE 40 MG/4 ML VIAL IV SCH (09:56)
[2022-06-24] MEDS ORDERED: MORPHINE 2 MG/ML SYR IV ONE (10:00)
[2022-06-24] MEDS: ACETAMINOPHEN 500 MG TAB PO PRN ×2 (11:58→17:58)
--- NOTE | 2022-06-24 13:25 | CON ---
Date of Consultation: 06/24/2022 Reason For Consultation: Elevated BUN, creatinine, fluid management. History Of Present Illness: This is a pleasant 77-year-old female, well known to me from previous admission with significant past medical history of diabetes complicated with neuropathy, nephropathy, hypertension, hyperlipidemia, chronic kidney disease stage 4 secondary to cardiorenal/diabetes nephropathy, baseline creatinine 2, GFR of 20, CAD complicated with congestive heart failure with ejection fraction of 35%, AFib, patient came to the hospital complaining of shortness of breath and the orthopnea. Kidney function stay the same. The patient found to be over volume. For that reason, we have been consulted. Patient apparently off her diuresis. Upon arrival to the hospital, creatinine of 1.9, GFR of 27. We started the patient on diuresis. Kidney function stabilized. Patient complaining from cramps. Past Medical History: Includes: 1. Diabetes complicated with neuropathy and nephropathy. 2. Hypertension. 3. Hyperlipidemia. 4. Chronic kidney disease, stage 4, secondary to diabetes nephropathy, cardiorenal syndrome. Baseline creatinine 2 with GFR of 27. 5. AFib. 6. CAD complicated with congestive heart failure, systolic dysfunction, ejection fraction of 35%. Past Surgical History: Includes: 1. Appendectomy. 2. ICD placement. 3. Exploratory laparotomy. Home Medications: Includes Eliquis, atorvastatin, insulin, Lasix, metoprolol, amiodarone, and amlodipine. Allergies: TO AMOXICILLIN, CIPRO, AND AUGMENTIN. Family History: Positive for lung disease, CAD, diabetes, and hypertension. Social History: Denied smoking. Denied drinking. Denied drugs abuse. Review of Systems: Head and Neck: No red eye. No ear pain. GI: No nausea. No vomiting. : No polyuria. No dysuria. No hematuria. Accounts Payables Clerk: No vaginal discharge. Respiratory: Has shortness of breath. Cardiovascular: No chest pain. Endocrine: No polydipsia. Skin: No rash. Neuro: Has neuropathy. Musculoskeletal: Has leg cramps. Physical Examination: Vital Signs: When I saw the patient, patient on nasal cannula, blood pressure of 116/64, pulse of 92, afebrile. Chest: Crackles, bilateral. Heart: S1, S2. Regular. Abdomen: Soft, nontender. Extremity: Plus edema. Neurologic: Alert. No focality. No tremor. Laboratory Data: Sodium 136, potassium 4.6, bicarb 24, BUN 68, creatinine 1.9, GFR of 27. Calcium 8.3, back in June 16, creatinine 1.9, GFR of 26, WBC 6.7, current lab data: WBC 8.7, H and H 10.5/31.4. Chest x-ray, cardiomegaly with the congestion. Current Medications: The patient on, includes: 1. Albuterol. 2. Eliquis. 3. Breathing treatment. 4. Zofran. 5. Morphine. Assessment And Plan: 1. Acute kidney injury on chronic kidney disease with over volume: I am going to resume the patient's diuresis starting of today, and we will follow up the patient. We will follow-up with the cardiology 2. Cramp mostly secondary to the diuresis. We will treat symptomatically. 3. Congestive heart failure with exacerbation. Start the patient back on the Lasix. Follow-up with cardiology 4. Respiratory failure secondary to over volume, /viral pneumonia flu . We will continue symptomatic treatment and we will add the Lasix. 5. Diabetes, as by primary. 6. Hypokalemia. We will supplement. We will consider adding spironolactone/ARB giving the degree of ejection fraction less than 30% we will follow-up with cardiology recommendation 7-hyponatremia dilutional we will optimize fluid status with the diuresis Time spent examining the patient [id number], reviewing data, lab and radiology, placing order, discussing the case with the patient and donor services team leader including hospitalist and nurses more than 75 minutes. IFEANYI Voice ID: [id number] Report ID: [id number] MELISSA
[2022-06-24] MEDS ORDERED: GUAIFENESIN/CODEINE 5ML UCUP PO PRN (14:52)
--- NOTE | 2022-06-24 15:45 | CON ---
Date of Consultation: 06/24/2022 Reason For Consultation: Acute on chronic systolic congestive heart failure exacerbation. History Of Present Illness: Ms. Simpson is 77. She is well known to us from previous office visits an d admission. She has a very complicated past cardiac history. She has a known ejection fraction of 24% which is recent. She has a defibrillator pacemaker. She has a history of coronary artery diseas e, diabetes, atrial fibrillation. She comes in with congestive heart failure, PND, orthopnea, pedal edema. No palpitation, syncope. No fever. No chills. Past Medical History: As stated above. Allergies: TO AUGMENTIN AND CIPROFLOXACIN. Medications: Include amiodarone, Dilantin, Lasix, insulin, metoprolol, Norvasc, Eliquis, and Lipitor . Review of Systems: Negative. Social History: Negative. Family History: Negative. Physical Examination: General: She was pleasant, no acute distress vital Signs: Stable. Paced rhythm. Afebrile. HEENT: Negative. Neck: Supple. No bruit. Chest: Clear. Cardiac: Revealed S3 gallops. No murmurs or rubs. Paced rhythm. Abdomen: Benign. Extremities: Revealed only trace edema. Diagnostic Data: O2 saturation was 97% nasal cannula. Creatinine is 1.91. BNP was 13,000. Chest x -ray showed mild failure. EKG showed paced rhythm. Echocardiogram in April showed an ejection fract ion of 24%. This is April of this year. Impression And Plan: Acute on chronic systolic congestive heart failure exacerbation. Continue pres ent regimen. Nephrology is following. I am not so sure why she is not on Aldactone. She may be a c andidate for [id number], but I will discuss that further with Nephrology down the road. Her creatinine is pretty high. Her GFR is low and she certainly may be at risk of renal failure with these medicat ion and it may be best to avoid them, but that I thought it may be worth the discussion. Other probl ems including atrial fibrillation, she is on amiodarone. She is on Eliquis. Her blood pressure is w ell controlled. Her dyslipidemia is well controlled. She has a history of seizure for which she chad es Dilantin that is well controlled. Her CAD and diabetes are fairly well controlled. She just rece ntly had her defibrillator and pacemaker checked. Again, continue present regimen. Discussed the fu rther therapy with Nephrology including MARÍA inhibitors, ARB, and/or Aldactone. I will continue to fo llow. I will discuss the case further with Dr. Fritz. PRAVEEN/CAMERON Voice ID: [id number] Report ID: [id number]
[2022-06-24] MEDS: ONDANSETRON 4 MG/2 ML VIAL IV PRN (17:50)
[2022-06-24] MEDS: PHENYTOIN ER 100 MG CAP PO SCH (22:15)
[2022-06-24] MEDS ORDERED: PHENYTOIN ER 100 MG CAP PO ONE (22:25)
[2022-06-25 02:56] LABS: Absolute Lymphocytes (CBC) 2.1 K/uL (0.7-4.9); Lymphocytes % 20.7 % (15.3-44.8); MCV 93.8 fL (80-100); MPV 10.8 fL (7.6-11.3); RBC Red Blood Cell Count 3.41 M/uL (3.86-4.86)
[2022-06-25] MEDS: ONDANSETRON 4 MG/2 ML VIAL IV PRN ×2 (02:58→08:54)
[2022-06-25] MEDS: ACETAMINOPHEN 500 MG TAB PO PRN ×3 (02:58→15:05)
[2022-06-25] MEDS: METOPROLOL XL 50 MG TAB PO SCH ×2 (02:58→17:57)
[2022-06-25 03:17] LABS: Magnesium 2.7 mg/dL (1.6-2.4); Phosphorus 4.6 mg/dL (2.5-4.9); Potassium 4.6 mEq/L (3.5-5.1); Thyroid Stimulating Hormone 0.465 uIU/mL (0.358-3.740)
[2022-06-25] MEDS ORDERED: DIGOXIN 0.25 MG/ML AMP IV ONE (05:51)
[2022-06-25] MEDS: APIXABAN 5 MG TABLET PO SCH ×2 (08:54→22:31)
[2022-06-25] MEDS: INSULIN -REGULAR HUMAN 50 UNIT/0.5 ML ML SQ SCH ×4 (08:54→21:00)
[2022-06-25] MEDS: PHENYTOIN ER 100 MG CAP PO SCH ×2 (08:55→22:31)
[2022-06-25] MEDS: FUROSEMIDE 40 MG/4 ML VIAL IV SCH (08:58)
[2022-06-25] MEDS: NPH (HUMAN) 100 UNITS/ML INSULIN SQ SCH ×2 (09:22→20:00)
[2022-06-25] MEDS: DIGOXIN 0.25 MG/ML AMP IV SCH ×2 (09:23→15:16)
[2022-06-25] MEDS: OSELTAMIVIR 30 MG CAP PO SCH (11:00)
--- NOTE | 2022-06-25 12:32 | PN ---
Date of Progress Note: 06/25/2022 Subjective: The patient was admitted to the hospital with chronic kidney disease, CHF exacerbation. The patient seen by Cardiology yesterday, we resumed Lasix. The patient had ejection fraction of 24 %. Had ICD. Yesterday, we started the patient on the Lasix, tolerated very well. The patient on ro om air. Blood pressure well controlled. Kidney function stayed around her baseline. Cardiology in favor of Aldactone and Entresto if feasible. Physical Examination: Vital Signs: When I saw the patient; blood pressure of 123/63, pulse of 102, afebrile. The patient had good urine output. Chest: Clear to auscultation. Heart: S1, S2. Regular. Abdomen: Soft, nontender. Extremity: Trace edema. Neurologic: Alert. No focality. Laboratory Data: Sodium 137, potassium 4.6, bicarb 26, BUN 90, creatinine 2.1, GFR 24, calcium 8.4, magnesium 2.7, phosphorus 4.6. Hemoglobin 10.8. Current Medications: The patient on include; 1.Tamiflu. 2.Eliquis. 3.Atorvastatin. 4.Digoxin. 5.Lasix 40 IV. 6.Zofran. Assessment And Plan: 1.Chronic kidney disease with acute kidney injury secondary to cardiorenal, over volume, back to nor mal volume currently. I am going to switch the Lasix to oral and we will follow up the patient. Giv en the recommendation from Cardiology, I am going to go ahead and initiate Entresto for the patient a nd we will follow up response. 2.Hypertension, controlled, optimal. We will initiate Entresto, switch Lasix to oral. 3.Respiratory failure, multifactorial, secondary to atypical pneumonia/congestive heart failure, exa cerbation, cardiorenal syndrome. Currently, the patient on room air. We will change the Lasix to or al. 4.Diabetes as by primary. 5.Hypokalemia, status post supplement, resolved. The patient is going to be started on Entresto. 6.Cramp, resolved. 7.Viral pneumonia, flu. Follow up with primary. Continue Tamiflu. MARCELLA/CAMERON Voice ID: [id number] Report ID: [id number]
--- NOTE | 2022-06-25 20:19 | RAD REPORT ---
EXAM DESCRIPTION: Frontal view of the chest. CLINICAL HISTORY: The patient is 77 years old and is Female; CHEST PAIN TECHNIQUE: Frontal view of the chest. COMPARISON: No relevant prior studies available. FINDINGS: Lungs: Prominent interstitial markings suggestive of interstitial edema. Pleural space: Unremarkable. No pneumothorax. Heart: Unremarkable. Mediastinum: Unremarkable. Bones/joints: Disc space narrowing with degenerative endplate changes in the spine. Tubes, lines and devices: Left-sided pacemaker/AICD. IMPRESSION: Prominent interstitial markings suggestive of interstitial edema. Electronically signed by: Santiago Mancia MD 06/24/2022 4:40 AM CDT Due to temporary technical issues with the PACS/Fluency reporting system, reports are being signed by the in house radiologists without review as a courtesy to insure prompt reporting. The interpreting radiologist is fully responsible for the content of the report.
[2022-06-25] MEDS: SACUBITRIL/VALSARTAN 24/26 MG TAB PO SCH (21:00)
[2022-06-25] MEDS ORDERED: ATORVASTATIN 40 MG TAB PO SCH (21:00)
[2022-06-26] MEDS: ONDANSETRON 4 MG/2 ML VIAL IV PRN (04:11)
[2022-06-26 04:16] LABS: Absolute Lymphocytes (CBC) 1.9 K/uL (0.7-4.9); Hematocrit 29.4 % (36.0-45.0); Lymphocytes % 24.7 % (15.3-44.8); MCV 94.1 fL (80-100); MPV 10.3 fL (7.6-11.3); RBC Red Blood Cell Count 3.12 M/uL (3.86-4.86)
[2022-06-26 04:39] LABS: Potassium 4.6 mEq/L (3.5-5.1)
[2022-06-26] MEDS: METOPROLOL XL 50 MG TAB PO SCH (07:29)
[2022-06-26] MEDS: INSULIN -REGULAR HUMAN 50 UNIT/0.5 ML ML SQ SCH (07:30)
--- NOTE | 2022-06-26 08:12 | P.DS ---
Admission Date: 06/24/22 Discharge Date: 06/26/22 Primary Care Provider: Adonis Disposition: ROUTINE DISCHARGE Discharge Condition: GOOD Reason for Admission: CHF Exacerbation Consultations: 1. Cardiology 2. Nephrology Hospital Course: DIAGNOSES: # Acute on Chronic Decompensated Combined Systolic/Diastolic Congestive Heart Failure with Reduced Ejection Fraction # Influenza B Infection # Type II Non-ST Segment Elevation Myocardial Infarction (Demand Ischemia) due to above # Hyperglycemia in Type II Diabetes Mellitus # Chronic Kidney Disease Stage IV # Chronic Atrial Fibrillation s/p PPM/AICD on Apixaban # History of Hypertension HOSPITAL COURSE: Ms. Teena Simpson is a pleasant 77 year old female with a past medical history si gnificant for type II diabetes mellitus, chronic kidney disease stage IV, chronic combined systolic/diastolic congestive heart failure, atrial fibrillation s/p PPM/AICD, and hypertension who was admitted to the [facility] on 06/24/2022 for chest pain and shortness of breath. She was admitted to the Medicine service. Upon further evaluation, she was found to have an acute decompensated congestive heart failure exacerbation. Additionally, she tested positive for influenza B and had a mild troponin elevation. Cardiology was consulted and she was evaluated by Dr. Graf. She was treated with diuresis and oseltamivir, and over the course of her hospitalization, her symptoms improved significantly. He felt that her troponin leak was secondary to demand ischemia and he did not recommend any additional inpatient evaluation. Dr. Graf has cleared her for discharge home with outpatient follow-up. Additionally, Nephrology was consulted and she was evaluated by Dr. Colvin. He has also cleared her for discharge with sacubitrilvalsartan and furosemide. This morning, she states that she feels very well and would like to be discharged home. On 06/26/2022, she was seen on rounds and deemed medically stable for discharge. She was discharged with instructions to schedule follow-up appointments with her PCP (Dr. Lamb), with Cardiology (Dr. Graf), and with her Load Tallier (Dr. Ulloa). She was provided prescriptions for oseltamivir, sacubutril- valsartan, and furosemide. She was given the opportunity to ask questions and reported no further questions. Furthermore, all questions were answered to the best of my ability. Today, I personally spent 25 minutes on her case, of which greater than 50% of the time was spent in patient education, counseling, and coordination of care as described above. Vital Signs/Physical Exam: Temp Pulse Resp BP Pulse Ox 97.9 F 91 H 18 134/62 95 06/26/22 04:00 06/26/22 07:29 06/26/22 04:00 06/26/22 07:29 06/26/22 04:00 General: Alert, In no apparent distress, Oriented x3 HEENT: Atraumatic, Mucous membr. moist/pink, Sclerae nonicteric Neck: JVD not distended Respiratory: Clear to auscultation bilaterally, Normal air movement Cardiovascular: No edema, Regular rate/rhythm, Normal S1 S2, No gallops, No rubs, No murmurs Gastrointestinal: Normal bowel sounds, Soft and benign, Non-distended, No tenderness, No rebound, No guarding Musculoskeletal: No clubbing Integumentary: No rashes Neurological: Normal speech, Normal affect Laboratory Data at Discharge: WBC 7.50 thou/uL (4.3-10.9) 06/26/22 03:58 Hgb 9.7 g/dL (12.0-15.0) L D 06/26/22 03:58 Hct 29.4 % (36.0-45.0) L 06/26/22 03:58 Plt Count 155 thou/uL (152-406) 06/26/22 03:58 PT 12.1 SECONDS (9.5-12.5) 06/24/22 03:40 INR 1.10 06/24/22 03:40 Sodium 138 mEq/L (136-145) 06/26/22 03:58 Potassium 4.6 mEq/L (3.5-5.1) 06/26/22 03:58 BUN 78 mg/dL (7-18) H 06/26/22 03:58 Creatinine 2.35 mg/dL (0.55-1.02) H 06/26/22 03:58 Glucose 69 mg/dL (74-106) L 06/26/22 03:58 Phosphorus 4.6 mg/dL (2.5-4.9) 06/25/22 02:21 Magnesium 2.7 mg/dL (1.6-2.4) H 06/25/22 02:21 Total Bilirubin 0.2 mg/dL (0.2-1.0) 06/24/22 03:40 AST 34 U/L (15-37) 06/24/22 03:40 ALT 41 U/L (13-56) 06/24/22 03:40 Alkaline Phosphatase 141 U/L (45-117) H 06/24/22 03:40 Triglycerides 61 mg/dL (<150) 06/25/22 02:21 Cholesterol 122 mg/dL (<200) 06/25/22 02:21 HDL Cholesterol 69 mg/dL (40-60) H 06/25/22 02:21 Cholesterol/HDL Ratio 1.77 06/25/22 02:21 Home Medications: Apixaban [Eliquis] 5 mg PO BID 08/07/21 Atorvastatin Calcium [Lipitor] 40 mg PO BEDTIME 08/07/21 Insulin NPH Human Isophane [Novolin N] 30 unit SQ 0800,2000 08/07/21 PHENYTOIN ER Cap [Dilantin ER Cap*] 100 mg PO BID 08/07/21 Metoprolol Succinate [Toprol Xl*] 50 mg PO BID 6AM 6PM #60 tab 05/09/22 Furosemide [Lasix*] 40 mg PO DAILY #30 tab 06/26/22 Oseltamivir Phosphate [Tamiflu] 30 mg PO DAILY 2 Days #2 cap 06/26/22 Sacubitril/Valsartan [Entresto 24 mg-26 mg Tablet] 1 tab PO DAILY #30 tab 06/26/22 New Medications: RX: Sacubitril/Valsartan [Entresto 24 mg-26 mg Tablet] 1 tab PO DAILY #30 tab RX: Furosemide [Lasix*] 40 mg PO DAILY #30 tab RX: Oseltamivir Phosphate [Tamiflu] 30 mg PO DAILY 2 Days #2 cap Physician Discharge Instructions: 1. Please call and schedule a follow-up appointment with your PCP (Dr. Lamb) in 3-5 days 2. Please call and schedule a follow-up appointment with your Load Tallier (Dr. Jimenez) in 3-5 days 3. Please call and schedule a follow-up appointment with Cardiology (Dr. Graf) in 5-7 days Diet: Renal Activity: Ad royal Followup: Elaine Ga MD [Primary Care Provider] - Ross Graf MD [ACTIVE - CAN ADMIT] - Catia Jimenez MD [COURTESY - CAN ADMIT] - Time spent managing pt's care (in minutes): 25
[2022-06-26 08:16] VITALS: BP 113/59; TEMP 98.6
[2022-06-26] MEDS: APIXABAN 5 MG TABLET PO SCH (08:16)
[2022-06-26] MEDS: PHENYTOIN ER 100 MG CAP PO SCH (08:16)
[2022-06-26] MEDS: SACUBITRIL/VALSARTAN 24/26 MG TAB PO SCH (08:17)
[2022-06-26] MEDS: NPH (HUMAN) 100 UNITS/ML INSULIN SQ SCH (08:17)
[2022-06-26 08:24] VITALS: O2SAT 96
[2022-06-26] MEDS ORDERED: FUROSEMIDE 40 MG TABLET PO SCH (09:00)
[2022-06-26] MEDS: OSELTAMIVIR 30 MG CAP PO SCH (09:02)
--- NOTE | 2022-06-26 12:41 | PN ---
Date of Progress Note: 06/25/2022 Ms. Simpson has been followed for an ejection fraction of 24%, defibrillator, pacemaker. Creatinine we nt up to 2.13, her O2 saturation 98%. She is on metoprolol, Lasix, and Eliquis. Discussions were to be made with Nephrology regarding the possibility of using ARBs, Entresto, or Aldactone and we will deal with that as an outpatient, but at this point her creatinine is going up and this is not an opti on. She can go home whenever it is okay with Dr. Fritz. PRAVEEN/CAMERON Voice ID: [id number] Report ID: [id number]
--- NOTE | 2022-06-27 08:01 | EKG ---
Test Date: 2022-06-24 Test Time: 03:56:47 Trench Pipe Layer Helper: ANNETTE MEASUREMENT RESULTS: Intervals: Rate: 94 WY: 130 QRSD: 150 QT: 448 QTc: 560 [place]: P: 39 WY: 130 QRS: -70 T: 105 INTERPRETIVE STATEMENTS: Electronic ventricular pacemaker Compared to ECG 05/22/2022 13:13:47 Atrial-sensed ventricular-paced complex(es) or rhythm no longer present Electronically Signed On 06-27-22 07:54:09 CDT by Ross Graf
== END 2022-06-26 10:34 | disposition home or self-care (01) | DRG 280 ==
LOC: ER 03:16 → ERHOLD 05:01 → 2ND 06:07
PROVIDERS: ADMIT Hospitalist; ATTEND Internal Medicine
DX: I13.0 Hypertensive heart and chronic kidney disease with heart failure and stage 1 through stage 4 chronic kidney disease, or unspecified chronic kidney disease (principal); I50.23 Acute on chronic systolic (congestive) heart failure; I21.A1 Myocardial infarction type 2; J96.90 Respiratory failure, unspecified, unspecified whether with hypoxia or hypercapnia; J10.08 Influenza due to other identified influenza virus with other specified pneumonia; J12.9 Viral pneumonia, unspecified; N18.4 Chronic kidney disease, stage 4 (severe); N17.9 Acute kidney failure, unspecified; E87.1 Hypo-osmolality and hyponatremia; E11.22 Type 2 diabetes mellitus with diabetic chronic kidney disease; E11.65 Type 2 diabetes mellitus with hyperglycemia; E11.40 Type 2 diabetes mellitus with diabetic neuropathy, unspecified; D63.1 Anemia in chronic kidney disease; E78.00 Pure hypercholesterolemia, unspecified; E86.0 Dehydration; I48.0 Paroxysmal atrial fibrillation; E87.6 Hypokalemia; E66.01 Morbid (severe) obesity due to excess calories; I25.110 Atherosclerotic heart disease of native coronary artery with unstable angina pectoris; I25.2 Old myocardial infarction; Z79.4 Long term (current) use of insulin; Z88.1 Allergy status to other antibiotic agents; Z79.01 Long term (current) use of anticoagulants; Z68.33 Body mass index [BMI] 33.0-33.9, adult; Z90.49 Acquired absence of other specified parts of digestive tract; Z95.810 Presence of automatic (implantable) cardiac defibrillator; Z79.899 Other long term (current) drug therapy; Z20.822 Contact with and (suspected) exposure to COVID-19
CPT/HCPCS: 36415; 71045; 80048; 80061; 80076; 82947; 83735; 83880; 84100; 84443; 84484; 85025; 85610; 87804; 87811; 93005; 94760; 96374; 96375; 99285; J1160; J1815; J1940; J2270; J2405

== ENCOUNTER 2022-07-04 07:14 | Emergency (ER) | payer OTHER ==
--- OUTSIDE RECORDS SUMMARY | 2022-07-04 07:22 | XMS REPORT | Continuity of Care Document ---
:[address] [facility] t Address [address] [place] [address] [address] [place] [address] Care Team Providers Name Role Phone Sam Luque Primary Care Physician Elaine Lamb Attending Clinician Unavailable FAM CRAIG Attending Clinician Unavailable SILVERIO ADAM Attending Clinician Unavailable SRIRAM HEATH Attending Clinician Unavailable Sriram Heath MD Attending Clinician Doctor Unassigned, Joiner Attending Clinician Unavailable 2, [facility] Attending [...] Unavailable IBIKUNLELIZZIEO F Attending Clinician Unavailable Ibikunle SOLAR SALES AMBASSADOR, Folusho F Attending Clinician Major SQUIRES, Clare Combs Attending Clinician CLARE GONSALVES Attending Clinician Unavailable Tommy BURK, Luis Alberto Attending Clinician Unavailable Mitchell Garcia MD Attending Clinician Pob, [facility] Main Attending Clinician Unavailable Ortega Dorsey MD Attending Clinician [phone] ORTEGA DORSEY Attending Clinician Unavailable Cielo Bautista [...] GRAMM, SHANTEL A Attending Clinician Unavailable Gramm SOLAR SALES AMBASSADOR, Shantel A Attending Clinician Sabina Barba MD Attending Clinician SABINA BARBA Attending Clinician Unavailable Meka SCOTT, Ericka Attending Clinician ERICKA ACKERMAN Attending Clinician Unavailable Lab, Ang - Db Attending Clinician Unavailable VIRI PRICE Attending Clinician Unavailable Lab, Adc Fam Pob I Attending Clinician Unavailable Jose SOLAR SALES AMBASSADOR, Karla Attending Clinician Dee SOLAR SALES AMBASSADOR, Viri Martinez Attending Clinician Teri Samano RN Attending Clinician Unavailable ERICH PANTOJA Attending Clinician Unavailable Pacemaker/Icd, [facility] Attending Clinician Unavailable Omole SOLAR SALES AMBASSADOR, Min Godinez Attending Clinician [phone] OMOLE, MIN TEEDANIELE Attending Clinician Unavailable Nita Degroot DO Attending Clinician NITA DEGROOT Attending Clinician Unavailable NITA DEGROOT Attending Clinician Unavailable Provider, [facility] Attending Clinician Unavailable Anny SOLAR SALES AMBASSADOR, Monica Attending Clinician MONICA BUTLER Attending Clinician Unavailable Calli BURK, Jo More Attending Clinician Unavailable Kirt Thomason DO Attending Clinician Gab Servin MD Attending Clinician GAB SERVIN Attending Clinician Unavailable Cielo Henry RN Attending Clinician Fma Craig MD Attending Clinician [phone] Edgar Cortés MD Attending Clinician [phone] EDGAR CORTÉS Attending Clinician Unavailable Lubna Lal [...] GALAVIZPMadeleine Attending Clinician Emily Lezama Attending Clinician [facility], [facility] Heart Failure [...] Effective Date Expiration Date S willkarthik BLAKE/SANDRA [id number] 2019 MEDICARE ADVANTAGE 00:00:00 [employer] CHOICE [id number] 2022 00:00:00 Problems Condition Condition Condition Status Onset Resolution Last Treating Co mments Source Name Details Category Date Date Treatment Clinician Date Pulmonary Pulmonary Disease Active 2021-02 Uni vers hypertensi hypertensi 2-31 it y of on on 00:00: [address] Presence Presence Disease Active 2021-02 Unive rs of cardiac of cardiac 2-30 it y of resynchron [place]ynchron [place] 00 Medical therapy therapy Branch defibrilla defibrilla 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-D) SOB SOB Disease Active 2021-02 Univers (shortness (shortness 2-29 it y of of breath) of breath) 00:00: [place] 00 [place] Atrial Atrial Disease Active Univers tachycardi tachycardi 2-25 it y of a a 00:00: [address] Branch Dizziness Dizziness Disease Active 2022-0 [...] Added automatic ally from request for surgery [id number] Refusal of Refusal of Disease Active 2020-02 U nivers blood blood 2-13 ity of transfusio transfusio 00:00[place] as ns as 00 Medical patient is patient is Br zenon [facility] Holiness Witness Osteopenia Osteopenia Disease Active 2020-02 U nivers 1-09 ity of 00:00: [place] 00 Medical Branch UTI UTI Disease Active 2019-02 Univers (urinary (urinary 0-08 ity of tract tract 00:00: [place] infection) infection) 00 Ne dical Branch Chronic Chronic Disease Active 2019-02 [...] Univers spells spells 0-19 ity of 00:00: [place] 00 Medical Branch Acute on Acute on Disease Active Unive rs chronic chronic 9-11 ity of anemia anemia 00:00: [place] 00 Medical Branch Atypical Atypical Disease Active Unive rs chest pain chest pain 5-09 it y of 00:00: [place] 00 Medical Branch Left arm Left arm Disease Active Unive rs pain pain 5-08 ity of 00:00: [place] 00 Medical Branch Arthritis Arthritis Disease Active 2019 Uni vers of lumbar of lumbar 1-07 ity of spine spine 00:00: [place] 00 Medical Branch Degenerati Degenerati Disease Active [...] disc 00:00: [place] disease), disease), 00 Medi sadnra lumbar lumbar Branch Osteoarthr Osteoarthr Disease Active [...] Univers nausea nausea 2-26 ity of 00:00: [place] [address] Medical Branch Dysphagia Dysphagia Disease Active 2017-02 Uni vers 2-26 ity of 00:00: [place] [facility] Fatty Fatty Disease Active Univers liver liver 5- ity of 00:00: [place] [facility] Abnormal Abnormal Disease Active Unive rs LFTs LFTs 5- ity of 00:00: [place] [facility] Multiple Multiple Disease Active Overview: Un araseli renal renal 5- Formattin ity of cysts cysts 00:00: g of this note Medical might be Branch different from the original. Bosniak Type [address] Hyperkalem Hyperkalem Disease Active U nivers ia ia 5- ity of 00:00: [place] [facility] History of History of Disease Active U nivers colon colon 5- ity of polyps polyps 00:00: [place] [facility] History of History of Disease Active U nivers pulmonary pulmonary 2-17 ity of embolism embolism 00:00: [place] [facility] Branch ICD ICD Disease Active Univers (implantab (implantab 2-17 it y of le le 00:00: [place] cardiovert cardiovert 00 Me dical er-defibri er-defibri Br anch llator) in llator) in place place Atrial Atrial Disease Active Univers fibrillati fibrillati 1-16 it y of on on 00:00: [address] Branch Syncope Syncope Disease Active Univers 1-15 ity of 00:00: [address] Branch DM DM Disease Active Univers (diabetes (diabetes 8-31 ity of mellitus), mellitus), 00:00: [place] type 2 type 2 00 Medical with renal with renal Br anch complicati complicati ons ons Anxiety Anxiety Disease Active Univers ity of [place] [facility] CKD CKD Disease Active Univers (chronic (chronic ity of kidney kidney [place] disease) disease) Medica l stage 4, stage 4, Branch GFR 15-29 GFR 15-29 ml/min ml/min Epilepsy Epilepsy Disease Active Unive rs ity of [facility] Esophageal Esophageal Disease Active U nivers reflux reflux ity of [facility] HLD HLD Disease Active Univers (hyperlipi (hyperlipi it y of demia) demia) [place] [facility] HTN HTN Disease Active Univers (hypertens (hypertens it y of ion) ion) [facility] Branch Non-ischem Non-ischem Disease Active U nivers [...] tobacco Passive smoker Un iversity of use [place] [facility] History SDOH University o f Alcohol Std Drinks [place] [facility] History SDOH University o f Alcohol Binge [place] [facility] History SDOH Social Unive rsity of [facility] Med ical Together Branch History SDOH Social Unive rsity of [facility] Medical Branch History SDOH Social Unive rsity of [facility] Medical Membership Branch History SDOH Social Unive rsity of [facility] Medical Meetings Branch Exposure to 2022-03-12 2022-03-22 Not sure University of SARS-CoV-2 (event) 00:00:00 07:50:00 [place] [facility] Alcohol intake 2022-03-14 2022-03-14 Current University of 00:00:00 00:00:00 non-drinker of [facility] alcohol Branch (finding) History SDOH 2022-02-17 2022-02-17 1 University o f Alcohol Frequency 00:00:00 00:00:00 [facility] edical Branch History SDOH Social 2022-02-17 2022-02-17 5 Unive rsity of Connections Phone 00:00:00 00:00:00 [facility] edical Branch History SDVA Social 2022-02-17 2022-02-17 98 Unive rsity of [facility] Living 00:00:00 00:00:00 [place] [facility] History SDOH 2022-02-17 2022-02-17 7 University o f Physical Activity 00:00:00 00:00:00 [facility] edical DPW Branch History SDVA 2022-02-17 2022-02-17 1 University o f Physical Activity 00:00:00 00:00:00 [facility] edical MPS Branch History SDVA 2022-02-17 2022-02-17 5 University o f Financial 00:00:00 00:00:00 [place] [facility] History SDVA Food 2022-02-17 2022-02-17 1 Univers ity of Worry 00:00:00 00:00:00 [place] [facility] History SDVA Food 2022-02-17 2022-02-17 1 Univers ity of Scarcity 00:00:00 00:00:00 [place] [facility] History SDVA 2022-02-17 2022-02-17 2 University o f Transport Med 00:00:00 00:00:00 [place] Medic al Branch History [facility] 2022-02-17 2022-02-17 2 University o f Transport Non-Med 00:00:00 00:00:00 [facility] edical Branch Tobacco use and 2022-02-16 2022-02-16 Smokeless Universit y of exposure 00:00:00 00:00:00 tobacco non-user [facility] dical Branch Tobacco Comment 2022-02-16 2022-02-16 exposed to "a Univer sity of 00:00:00 00:00:00 lot" of passive [place] Med ical smoke from Branch Sex [birth year] Universit y of 00:00:00 00:00:00 [facility] Smoking Status Start Date Stop Date Source Never smoked tobacco [facility] Medications Ordered Filled Start Stop Current Ordering Indication Dosage Frequency Signature Comments Components Source Medication Medication Date Date Medication? Clinician (SIG) Name Name metoprolol Yes [id number] 50mg Take 1 Univers succinate 2-07 tablet by ity o f XL 50 mg 24 00:00: mouth 2 [place] as hr tablet 00 (two) Medical times Branch daily. amiodarone Yes [id number] 200mg Take 1 Univers 200 mg 1-26 tablet by ity of tablet 00:00: mouth [place] 00 daily. Medical Branch amiodarone Yes [id number] 200mg Take 1 Univers 200 mg 1-26 tablet by ity of tablet 00:00: mouth [place] 00 daily. Medical Branch amiodarone Yes [id number] 200mg Take 1 Univers 200 mg 1-26 tablet by ity of tablet 00:00: mouth [place] 00 daily. Medical Branch amiodarone Yes [id number] 200mg Take 1 Univers 200 mg 1-26 tablet by ity of tablet 00:00: mouth [place] 00 daily. Medical Branch amiodarone Yes [id number] 200mg Take 1 Univers 200 mg 1-26 [...] day at 6am and 6pm furosemide Yes [id number] 40mg Take 1 Univers 40 mg 1-10 tablet by ity of tablet 00:00: mouth [place] 00 every Medical morning Branch and evening. metoprolol Yes [id number] 50mg Take 1 Univers succinate 1-10 tablet [...] s: atrial fibrillati on furosemide 2023-0 Yes [id number] 40mg Take 1 Univers 40 mg 1-10 tablet by ity of tablet 00:00: mouth [place] 00 every Medical morning Branch and evening. metoprolol 2022-0 Yes [id number] 50mg Take 1 Univers succinate 1-10 tablet [...] s: atrial fibrillati on furosemide 2022-0 Yes [id number] 40mg Take 1 Univers 40 mg 1-10 tablet by ity of tablet 00:00: mouth [place] 00 every Medical morning Branch and evening. metoprolol 2022-0 Yes [id number] 50mg Take 1 Univers succinate 1-10 tablet [...] s: atrial fibrillati on furosemide 0 Yes [id number] 40mg Take 1 Univers 40 mg 1-10 tablet by ity of tablet 00:00: mouth [place] 00 every Medical morning Branch and evening. metoprolol 2022-0 Yes [id number] 50mg Take 1 Univers succinate 1-10 tablet [...] s: atrial fibrillati on furosemide 2022-0 Yes [id number] 40mg Take 1 Univers 40 mg 1-10 tablet by ity of tablet 00:00: mouth [place] 00 every Medical morning Branch and evening. metoprolol 2022-0 Yes [id number] 50mg Take 1 Univers succinate 1-10 tablet [...] s: atrial fibrillati on furosemide 2022-0 Yes [id number] 40mg Take 1 Univers 40 mg 1-10 tablet by ity of tablet 00:00: mouth [place] 00 every Medical morning Branch and evening. metoprolol 2022-0 Yes [id number] 50mg Take 1 Univers succinate 1-10 tablet [...] s: atrial fibrillati on furosemide 2022-0 Yes [id number] 40mg Take 1 Univers 40 mg 1-10 tablet by ity of tablet 00:00: mouth [place] 00 every Medical morning Branch and evening. metoprolol 2022-0 Yes [id number] 50mg Take 1 Univers succinate 1-10 tablet [...] s: atrial fibrillati on furosemide 2022-0 Yes [id number] 40mg Take 1 Univers 40 mg 1-10 tablet by ity of tablet 00:00: mouth [place] 00 every Medical morning Branch and evening. apixaban 2022-0 Yes 1358 2.5mg Take 1 Univer s (ELIQUIS) 1-10 tablet by ity o f 2.5 mg 00:00: mouth 2 [place] tablet 00 (two) Medical times Branch daily. Indication s: atrial fibrillati on furosemide Yes [id number] 40mg Take 1 Univers 40 mg 1-10 tablet by ity of tablet 00:00: mouth [place] 00 every Medical morning Branch and evening. apixaban Yes 1358 2.5mg Take 1 Univer s (ELIQUIS) 1-10 tablet by ity o f 2.5 mg 00:00: mouth 2 [place] tablet 00 (two) Medical times Branch daily. Indication s: atrial fibrillati on metoprolol 2022- No [id number] 50mg Take 1 Univers succinate 1-10 02-06 tablet by ity of XL 50 mg 24 00:00: 00:00 mouth 2 [place] hr tablet 00 :00 (two) Medical times Branch daily. insulin NPH Yes [id number] 20U inject 20 Univers 100 unit/mL 1-02 Units ity of injection 00:00: under the [place] 00 skin every Medical morning. Branch insulin NPH Yes [id number] 20U inject 20 Univers 100 unit/mL 1-02 Units ity of injection 00:00: under the [place] 00 skin every Medical morning. Branch insulin NPH Yes [id number] 20U inject 20 Univers 100 unit/mL 1-02 Units ity of injection 00:00: under the [place] 00 skin every Medical morning. Branch insulin NPH 0 Yes [id number] 20U inject 20 Univers 100 unit/mL 1-02 Units ity of injection 00:00: under the [place] 00 skin every Medical morning. Branch insulin NPH 0 Yes [id number] 20U inject 20 Univers 100 unit/mL 1-02 Units ity of injection 00:00: under the [place] 00 skin every Medical morning. Branch insulin NPH 0 Yes [id number] 20U inject 20 Univers 100 unit/mL 1-02 Units ity of injection 00:00: under the [place] 00 skin every Medical morning. Branch insulin NPH 0 Yes [id number] 20U inject 20 Univers 100 unit/mL 1-02 Units ity of injection 00:00: under the [place] 00 skin every Medical morning. Branch insulin NPH 0 Yes [id number] 20U inject 20 Univers 100 unit/mL 1-02 Units ity of injection 00:00: under the [place] 00 skin every Medical morning. Branch insulin NPH 2022-0 Yes [id number] 20U inject 20 Univers 100 unit/mL 1-02 Units ity of injection 00:00: under the [place] 00 skin every Medical morning. Branch insulin NPH 2022-0 Yes [id number] 20U inject 20 Univers 100 unit/mL 1-02 Units ity of injection 00:00: under the [place] 00 skin every Medical morning. Branch insulin NPH 2022-0 Yes [id number] 20U inject 20 Univers 100 unit/mL 1-02 [...] 03:00: First dose [place] 00 on Sat [facility] 02/18/22 Branch at 2100, Until Discontinu ed, Routine insulin NPH 2022-0 Yes [id number] 15U inject 15 Univers 100 unit/mL 1- Units ity of injection 00:00: under the [place] 00 skin at Medical bedtime. Branch polyethylen 2022-0 Yes [id number] 17g Take 1 Univers e glycol 1 Packet by ity of 3350 17 00:00: mouth [place] gram powder 00 every 24 Medi sandra (twenty-fo Branch ur) hours as needed for Constipati on. insulin NPH 2022-0 Yes [id number] 15U inject 15 Univers 100 unit/mL 1-01 Units ity of injection 00:00: under the [place] 00 skin at Medical bedtime. Branch polyethylen 2022-0 Yes [id number] 17g Take 1 Univers e glycol 1-01 Packet by ity of 3350 17 00:00: mouth [place] gram powder 00 every 24 Medi sandra (twenty-fo Branch ur) hours as needed for Constipati on. insulin NPH 2022-0 Yes [id number] 15U inject 15 Univers 100 unit/mL 1-01 Units ity of injection 00:00: under the [place] 00 skin at Medical bedtime. Branch polyethylen 2022-0 Yes [id number] 17g Take 1 Univers e glycol 1-01 Packet by ity of 3350 17 00:00: mouth [place] gram powder 00 every 24 Medi sandra (twenty-fo Branch ur) hours as needed for Constipati on. insulin NPH 2022-0 Yes [id number] 15U inject 15 Univers 100 unit/mL 1-01 Units ity of injection 00:00: under the [place] 00 skin at Medical bedtime. Branch polyethylen 0 Yes [id number] 17g Take 1 Univers e glycol 1-01 Packet by ity of 3350 17 00:00: mouth [place] gram powder 00 every 24 Medi sandra (twenty-fo Branch ur) hours as needed for Constipati on. insulin NPH 0 Yes [id number] 15U inject 15 Univers 100 unit/mL 1-01 Units ity of injection 00:00: under the [place] 00 skin at Medical bedtime. Branch polyethylen 2022-0 Yes [id number] 17g Take 1 Univers e glycol 1-01 Packet by ity of 3350 17 00:00: mouth [place] gram powder 00 every 24 Medi sandra (twenty-fo Branch ur) hours as needed for Constipati on. insulin NPH 2022-0 Yes [id number] 15U inject 15 Univers 100 unit/mL 1-01 Units ity of injection 00:00: under the [place] 00 skin at Medical bedtime. Branch polyethylen 2022-0 Yes [id number] 17g Take 1 Univers e glycol 1-01 Packet by ity of 3350 17 00:00: mouth [place] gram powder 00 every 24 Medi sandra (twenty-fo Branch ur) hours as needed for Constipati on. insulin NPH Yes [id number] 15U inject 15 Univers 100 unit/mL 1-01 Units ity of injection 00:00: under the [place] 00 skin at Medical bedtime. Branch polyethylen 0 Yes [id number] 17g Take 1 Univers e glycol 1-01 Packet by ity of 3350 17 00:00: mouth [place] gram powder 00 every 24 Medi sandra (twenty-fo Branch ur) hours as needed for Constipati on. insulin NPH Yes [id number] 15U inject 15 Univers 100 unit/mL 1-01 Units ity of injection 00:00: under the [place] 00 skin at Medical bedtime. Branch polyethylen 0 Yes [id number] 17g Take 1 Univers e glycol 1-01 Packet by ity of 3350 17 00:00: mouth [place] gram powder 00 every 24 Medi sandra (twenty-fo Branch ur) hours as needed for Constipati on. insulin NPH Yes [id number] 15U inject 15 Univers 100 unit/mL 1-01 Units ity of injection 00:00: under the [place] 00 skin at Medical bedtime. Branch polyethylen 0 Yes [id number] 17g Take 1 Univers e glycol 1-01 Packet by ity of 3350 17 00:00: mouth [place] gram powder 00 every 24 Medi sandra (twenty-fo Branch ur) hours as needed for Constipati on. insulin NPH Yes [id number] 15U inject 15 Univers 100 unit/mL 1-01 Units ity of injection 00:00: under the [place] 00 skin at Medical bedtime. Branch polyethylen 0 Yes [id number] 17g Take 1 Univers e glycol 1-01 Packet by ity of 3350 17 00:00: mouth [place] gram powder 00 every 24 Medi sandra (twenty-fo Branch ur) hours as needed for Constipati on. insulin NPH 0 Yes [id number] 15U inject 15 Univers 100 unit/mL 1-01 Units ity of injection 00:00: under the [place] 00 skin at Medical bedtime. Branch polyethylen 2022-0 Yes [id number] 17g Take 1 Univers e glycol 1-01 Packet by ity of 3350 17 00:00: mouth [place] gram powder 00 every 24 Medi sandra (twenty-fo Branch ur) hours as needed for Constipati on. furosemide 2022- No [id number] 40mg Take 1 Univers 40 mg 02-19 tablet by ity of tablet 00:00: 05:59 mouth [place] 00 :00 every Medical morning Branch and evening for 30 days. furosemide 2022- No [id number] 40mg Take 1 Univers 40 mg 02-19 tablet by ity of tablet 00:00: 05:59 mouth [place] 00 :00 every Medical morning Branch and evening for 30 days. furosemide 2022- No [id number] 40mg Take 1 Univers 40 mg 02-19 tablet by ity of tablet 00:00: 00:00 mouth [place] 00 :00 every Medical morning Branch and evening for 30 days. furosemide 2022- No [id number] 40mg Take 1 Univers 40 mg 02-19 [...] Until Discontinu ed, Routine sulfur 2021-02- No [id number] 5mL 5 mL, Un araseli hexafluorid 02-17 9103 Intravenou i ty of e microsphr 15:00: 15:00 s, ONCE, 1 [place] (LUMASON) 00 :00 dose, On Medica l injection 5 Sun Branch mL 02/17/22 at 0900, Routine
council member approving Restricted medication : SRIRAM HEATH polyethylen 2021-02 Yes 17g 17 g, Unive rs e glycol 2-30 Oral, ity of 3350 powder 05:09: [id number], [place] 17 g 36 Starting Medical on [place] Branch 02/16/22 at 2309, Until Discontinu ed, Routine, Constipati on phenytoin 2021-02 Yes 200mg 200 mg, Univ ers Extended 2-30 Oral, QHS, ity o f (DILANTIN 03:00: First [place] KAPSEAL) 00 on [facility] Medical capsule 200 02/16/22 Bran ch mg at 2100, Until Discontinu ed, Routine insulin NPH 2021-02 Yes 15U 15 Units, U nivers (HUMULIN N) 2-30 Subcutaneo it y of injection 03:00: [place], QHS, [place] 15 Units 00 First dose Medic al on [facility] Branch 02/16/22 at 2100, Until Discontinu ed, Routine atorvastati 2021-02 Yes 40mg 40 mg, Univ ers n (LIPITOR) 2-30 Oral, QHS, it y of tablet 40 03:00: First dose [place] mg 00 on [facility] 02/16/22 Branch at 2100, Until Discontinu ed, Routine levETIRAcet 2021-02 Yes 500mg 500 mg, Un araseli am (KEPPRA) 2-30 Oral, BID, it y of tablet 500 02:00: First dose [place] mg 00 on [facility] 02/16/22 Branch at 2000, Until Discontinu ed, Routine apixaban 2021-02 Yes 1358 5mg 5 mg, Univers (ELIQUIS) 2-30 Oral, BID, ity of tablet 5 mg 02:00: First dose [place] 00 on [facility] 02/16/22 Branch at 2000, Until Discontinu ed, Routine
Indicatio ns: Non-Valvul ar Atrial Fibrillati on furosemide 2021-02- No 40mg 40 mg, Univ ers (LASIX) 202-19 Slow IV ity of injection 02:00: 18:11 [place], [place] 40 mg 00 :42 Q12H, Medical First dose Branch on [facility] 02/16/22 at 2000, Until Discontinu ed, Routine metoprolol 2021-02- No 50mg 50 mg, Univ ers succinate 202-18 Oral, BID, ity of XL (TOPROL 02:00: 14:37 First dose [place] XL) tablet 00 :05 on [facility] Medical 50 mg 02/16/22 Branch at [...] Branch 02/16/22 at 1100, JACQUI semaglutide Yes [id number] .25mg inject Univers (OZEMPIC) 8-17 0.25 mg ity of 0.25 mg or 00:00: under the [place] 0.5 mg(2 00 skin Medical mg/1.5 mL) weekly. Branch PnIj semaglutide Yes [id number] .25mg inject Univers (OZEMPIC) 8-17 0.25 mg ity of 0.25 mg or 00:00: under the [place] 0.5 mg(2 00 skin Medical mg/1.5 mL) weekly. Branch PnIj semaglutide Yes [id number] .25mg inject Univers (OZEMPIC) 8-17 0.25 mg ity of 0.25 mg or 00:00: under the [place] 0.5 mg(2 00 skin Medical mg/1.5 mL) weekly. Branch PnIj semaglutide Yes [id number] .25mg inject Univers (OZEMPIC) 8-17 0.25 mg ity of 0.25 mg or 00:00: under the [place] 0.5 mg(2 00 skin Medical mg/1.5 mL) weekly. Branch PnIj semaglutide 2021-0 Yes [id number] .25mg inject Univers (OZEMPIC) 8-17 0.25 mg ity of 0.25 mg or 00:00: under the [place] 0.5 mg(2 00 skin Medical mg/1.5 mL) weekly. Branch PnIj semaglutide 2021-0 Yes [id number] .25mg inject Univers (OZEMPIC) 8-17 0.25 mg ity of 0.25 mg or 00:00: under the [place] 0.5 mg(2 00 skin Medical mg/1.5 mL) weekly. Branch VickiIj semaglutide 0 Yes [id number] .25mg inject Univers (OZEMPIC) 8-17 0.25 mg ity of 0.25 mg or 00:00: under the [place] 0.5 mg(2 00 skin Medical mg/1.5 mL) weekly. Branch VickiIj semaglutide 0 Yes [id number] .25mg inject Univers (OZEMPIC) 8-17 0.25 mg ity of 0.25 mg or 00:00: under the [place] 0.5 mg(2 00 skin Medical mg/1.5 mL) weekly. Branch VickiIj semaglutide 0 Yes [id number] .25mg inject Univers (OZEMPIC) 8-17 0.25 mg ity of 0.25 mg or 00:00: under the [place] 0.5 mg(2 00 skin Medical mg/1.5 mL) weekly. Branch PnIj semaglutide 0 Yes [id number] .25mg inject Univers (OZEMPIC) 8-17 0.25 mg ity of 0.25 mg or 00:00: under the [place] 0.5 mg(2 00 skin Medical mg/1.5 mL) weekly. Branch PnIj semaglutide 2021-0 Yes [id number] .25mg inject Univers (OZEMPIC) 8-17 0.25 mg ity of 0.25 mg or 00:00: under the [place] 0.5 mg(2 00 skin Medical mg/1.5 mL) weekly. Branch PnIj semaglutide 2021-0 Yes [id number] .25mg inject Univers (OZEMPIC) 8-17 0.25 mg ity of 0.25 mg or 00:00: under the [place] 0.5 mg(2 00 skin Medical mg/1.5 mL) weekly. Branch PnIj semaglutide 2-0 Yes [id number] .25mg inject Univers (OZEMPIC) 8-17 0.25 mg ity of 0.25 mg or 00:00: under the [place] 0.5 mg(2 00 skin Medical mg/1.5 mL) weekly. Branch PnIj semaglutide 2-0 Yes [id number] .25mg inject Univers (OZEMPIC) 8-17 0.25 mg [...] capsules in the evening. amLODIPine 2-0 Yes [id number] 10mg Take 1 U nivers 10 mg 6-13 tablet by ity of tablet 00:00: mouth [place] 00 daily. Medical Branch amLODIPine 2022-0 Yes [id number] 10mg Take 1 U nivers 10 mg 6-13 tablet by ity of tablet 00:00: mouth [place] 00 daily. Medical Branch amLODIPine 2022-0 Yes [id number] 10mg Take 1 U nivers 10 mg 6-13 tablet by ity of tablet 00:00: mouth [place] 00 daily. Medical Branch amLODIPine 2022-0 Yes [id number] 10mg Take 1 U nivers 10 mg 6-13 tablet by ity of tablet 00:00: mouth [place] 00 daily. Medical Branch amLODIPine 2022-0 Yes [id number] 10mg Take 1 U nivers 10 mg 6-13 tablet by ity of tablet 00:00: mouth [place] 00 daily. Medical Branch amLODIPine 2021-0 3- No [id number] 10mg Take 1 Univers 10 mg 6-13 01-10 tablet by ity of tablet 00:00: 00:00 mouth [place] 00 :00 daily. Medical Branch amLODIPine 2021-0 2022- No [id number] 10mg Take 1 Univers 10 mg 6-13 [...] s: atrial fibrillati on OXCARBAZEPI 2-0 Yes [id number] TAKE 1 Univers [place] 150 mg 3-08 TABLET 2 X ity of tablet 00:00: A DAY FOR [place] 00 1 WEEK Medical THEN 2 Branch TABS 2X DAY FOR 1 WEEK 3 TABLES 2XADAY OXCARBAZEPI 2022-0 Yes [id number] TAKE 1 Univers [place] 150 mg 3-08 TABLET 2 X ity of tablet 00:00: A DAY FOR [place] 00 1 WEEK Medical THEN 2 Branch TABS 2X DAY FOR 1 WEEK 3 TABLES 2XADAY OXCARBAZEPI 2022-0 Yes [id number] TAKE 1 Univers NE 150 mg 3-08 TABLET 2 X ity of tablet 00:00: A DAY FOR [place] 00 1 WEEK Medical THEN 2 Branch TABS 2X DAY FOR 1 WEEK 3 TABLES 2XADAY OXCARBAZEPI 2022-0 Yes [id number] TAKE 1 Univers NE 150 mg 3-08 TABLET 2 X ity of tablet 00:00: A DAY FOR [place] 1 WEEK Medical THEN 2 Branch TABS 2X DAY FOR 1 WEEK 3 TABLES 2XADAY OXCARBAZEPI 2022-0 Yes [id number] TAKE 1 Univers NE 150 mg 3-08 TABLET 2 X ity of tablet 00:00: A DAY FOR [place] 1 WEEK Medical THEN 2 Branch TABS 2X DAY FOR 1 WEEK 3 TABLES 2XADAY OXCARBAZEPI 2022-0 Yes [id number] TAKE 1 Univers NE 150 mg 3-08 TABLET 2 X ity of tablet 00:00: A DAY FOR [place] 1 WEEK Medical THEN 2 Branch TABS 2X DAY FOR 1 WEEK 3 TABLES 2XADAY OXCARBAZEPI 2022-0 Yes [id number] TAKE 1 Univers NE 150 mg 3-08 TABLET 2 X ity of tablet 00:00: A DAY FOR [place] 00 1 WEEK Medical THEN 2 Branch TABS 2X DAY FOR 1 WEEK 3 TABLES 2XADAY OXCARBAZEPI 2022-0 Yes [id number] TAKE 1 Univers NE 150 mg 3-08 TABLET 2 X ity of tablet 00:00: A DAY FOR [place] 1 WEEK Medical THEN 2 Branch TABS 2X DAY FOR 1 WEEK 3 TABLES 2XADAY OXCARBAZEPI 2022-0 Yes [id number] TAKE 1 [facility] NE 150 mg 3-08 TABLET 2 X ity of tablet 00:00: A DAY FOR [place] 1 WEEK Medical THEN 2 Branch TABS 2X DAY FOR 1 WEEK 3 TABLES 2XADAY OXCARBAZEPI 2022-0 Yes [id number] TAKE 1 [facility] NE 150 mg 3-08 TABLET 2 X ity of tablet 00:00: A DAY FOR [place] 1 WEEK Medical THEN 2 Branch TABS 2X DAY FOR 1 WEEK 3 TABLES 2XADAY OXCARBAZEPI 2022-0 Yes [id number] TAKE 1 [facility] NE 150 mg 3-08 TABLET 2 X ity of tablet 00:00: A DAY FOR [place] 1 WEEK Medical THEN 2 Branch TABS 2X DAY FOR 1 WEEK 3 TABLES 2XADAY OXCARBAZEPI 2022-0 Yes [id number] TAKE 1 [facility] NE 150 mg 3-08 TABLET 2 X ity of tablet 00:00: A DAY FOR [place] 1 WEEK Medical THEN 2 Branch TABS 2X DAY FOR 1 WEEK 3 TABLES 2XADAY OXCARBAZEPI 2022-0 Yes [id number] TAKE 1 [facility] NE 150 mg 3-08 TABLET 2 X ity of tablet 00:00: A DAY FOR [place] 1 WEEK Medical THEN 2 Branch TABS 2X DAY FOR 1 WEEK 3 TABLES 2XADAY OXCARBAZEPI 2022-0 Yes [id number] TAKE 1 [facility] NE 150 mg 3-08 TABLET 2 X ity of tablet 00:00: A DAY FOR [place] 1 WEEK Medical THEN 2 Branch TABS [...] 6am and 6pm insulin NPH 2021-0 Yes [id number] 10U inject Univers (NOVOLIN N 04-13 10-15 ity of NPH U-100 00:00: Units [place] INSULIN) 00 under the Medica l 100 unit/mL skin every Br anch injection evening. insulin NPH 0 Yes [id number] 10U inject Univers (NOVOLIN N 04-13 10-15 ity of NPH U-100 00:00: Units [place] INSULIN) 00 under the Medica l 100 unit/mL skin every Br anch injection evening. insulin NPH 0 Yes [id number] 10U inject Univers (NOVOLIN N 04-13 10-15 ity of NPH U-100 00:00: Units [place] INSULIN) 00 under the Medica l 100 unit/mL skin every Br anch injection evening. insulin NPH 3- No [id number] 10U inject Univers (NOVOLIN N 04-13 10-15 ity of NPH U-100 00:00: 00:00 Units [place] INSULIN) 00 :00 under the Medica l 100 unit/mL skin every Br anch injection evening. furosemide 2021-0 Yes [id number] 20mg Take 1 Univers 20 mg 1-27 tablet by ity of tablet 00:00: mouth [place] 00 daily. Medical Branch levETIRAcet 2021-0 Yes [id number] 500mg Take 1 Univers am 500 mg 1-27 tablet by ity o f tablet 00:00: mouth 2 [place] 00 (two) Medical times Branch daily. furosemide 2021-0 Yes [id number] 20mg Take 1 Univers 20 mg 1-27 tablet by ity of tablet 00:00: mouth [place] 00 daily. Medical Branch levETIRAcet 2021-0 Yes [id number] 500mg Take 1 Univers am 500 mg 1-27 tablet by ity o f tablet 00:00: mouth 2 [place] 00 (two) Medical times Branch daily. furosemide 2-0 Yes [id number] 20mg Take 1 Univers 20 mg 1-27 tablet by ity of tablet 00:00: mouth daily. Medical Branch levETIRAcet 2-0 Yes [id number] 500mg Take 1 Univers am 500 mg 1-27 tablet by ity o f tablet 00:00: mouth (two) Medical times Branch daily. levETIRAcet 2-0 Yes [id number] 500mg Take 1 Univers am 500 mg 1-27 tablet by ity o f tablet 00:00: mouth (two) Medical times Branch daily. levETIRAcet 2-0 Yes [id number] 500mg Take 1 Univers am 500 mg 1-27 tablet by ity o f tablet 00:00: mouth (two) Medical times Branch daily. levETIRAcet 2-0 Yes [id number] 500mg Take 1 Univers am 500 mg 1-27 tablet by ity o f tablet 00:00: mouth (two) Medical times Branch daily. levETIRAcet 2021-0 Yes [id number] 500mg Take 1 Univers am 500 mg 1-27 tablet by ity o f tablet 00:00: mouth (two) Medical times Branch daily. levETIRAcet 2-0 Yes [id number] 500mg Take 1 Univers am 500 mg 1-27 tablet by ity o f tablet 00:00: mouth (two) Medical times Branch daily. levETIRAcet 2-0 Yes [id number] 500mg Take 1 Univers am 500 mg 1-27 tablet by ity o f tablet 00:00: mouth (two) Medical times Branch daily. levETIRAcet 2-0 Yes [id number] 500mg Take 1 Univers am 500 mg 1-27 tablet by ity o f tablet 00:00: mouth (two) Medical times Branch daily. levETIRAcet 2-0 Yes [id number] 500mg Take 1 [facility] am 500 mg 1-27 tablet by ity o f tablet 00:00: mouth (two) Medical times Branch daily. levETIRAcet 2-0 Yes [id number] 500mg Take 1 Univers am 500 mg 1-27 tablet by ity o f tablet 00:00: mouth 2 00 (two) Medical times Branch daily. levETIRAcet 2021-0 Yes [id number] 500mg Take 1 Univers am 500 mg 1-27 tablet by ity o f tablet 00:00: mouth 2 (two) Medical times Branch daily. levETIRAcet 2021-0 Yes [id number] 500mg Take 1 Univers am 500 mg 1-27 tablet by ity o f tablet 00:00: mouth 2 (two) Medical times Branch daily. furosemide 0 3- No [id number] 20mg Take 1 Univers 20 mg 1-27 02-19 tablet by ity of tablet 00:00: 00:00 mouth [place] 00 :00 daily. Medical Branch pantoprazol 0 Yes [id number] 40mg Take 1 Univers e 40 mg EC 1-21 tablet by ity of tablet 00:00: mouth 00 daily. Medical Branch pantoprazol 0 Yes [id number] 40mg Take 1 Univers e 40 mg EC 1-21 tablet by ity of tablet 00:00: mouth 00 daily. Medical Branch pantoprazol 0 Yes [id number] 40mg Take 1 Univers e 40 mg EC 1-21 tablet by ity of tablet 00:00: mouth 00 daily. Medical Branch pantoprazol 0 Yes [id number] 40mg Take 1 Univers e 40 mg EC 1-21 tablet by ity of tablet 00:00: mouth [place] 00 daily. Medical Branch pantoprazol 2021-0 Yes [id number] 40mg Take 1 Univers e 40 mg EC 1-21 tablet by ity of tablet 00:00: mouth [place] 00 daily. Medical Branch pantoprazol 0 Yes [id number] 40mg Take 1 Univers e 40 mg EC 1-21 tablet by ity of tablet 00:00: mouth 00 daily. Medical Branch pantoprazol 2021-0 Yes [id number] 40mg Take 1 Univers e 40 mg EC 1-21 tablet by ity of tablet 00:00: mouth [place] 00 daily. Medical Branch pantoprazol 2021-0 Yes [id number] 40mg Take 1 Univers e 40 mg EC 1-21 tablet by ity of tablet 00:00: mouth [place] 00 daily. Medical Branch pantoprazol 2021-0 Yes [id number] 40mg Take 1 Univers e 40 mg EC 1-21 tablet by ity of tablet 00:00: mouth [place] 00 daily. Medical Branch pantoprazol Yes [id number] 40mg Take 1 Univers e 40 mg EC 1-21 tablet by ity of tablet 00:00: mouth [place] 00 daily. Medical Branch pantoprazol 0 Yes [id number] 40mg Take 1 Univers e 40 mg EC 1-21 tablet by ity of tablet 00:00: mouth [place] 00 daily. Medical Branch pantoprazol 0 Yes [id number] 40mg Take 1 Univers e 40 mg EC 1-21 tablet by ity of tablet 00:00: mouth [place] 00 daily. Medical Branch pantoprazol 0 Yes [id number] 40mg Take 1 Univers e 40 mg EC 1-21 tablet by ity of tablet 00:00: mouth [place] 00 daily. Medical Branch pantoprazol Yes [id number] 40mg Take 1 Univers e 40 mg EC 1-21 tablet by ity of tablet 00:00: mouth [place] 00 daily. Medical Branch atorvastati 2020-02 Yes [id number] 40mg Take 1 Univers n 40 mg 2-14 tablet by ity of tablet 00:00: mouth at [place] 00 bedtime. Medical Branch insulin 2020-02 Yes 8U inject 8 Univer s regular 2-14 Units ity of human 00:00: under the [place] (NOVOLIN R 00 skin Medical REGULAR daily. Branch U-100 Daily at [facility]) 100 noon unit/mL injection atorvastati 2020-02 Yes [id number] 40mg Take 1 Univers n 40 mg 2-14 tablet by ity of tablet 00:00: mouth at [place] 00 bedtime. Medical Branch insulin 2020-02 Yes 8U inject 8 Univer s regular 2-14 Units ity of human 00:00: under the [place] (NOVOLIN R 00 skin Medical REGULAR daily. Branch U-100 Daily at [facility]) 100 noon unit/mL injection atorvastati 2020-02 Yes [id number] 40mg Take 1 Univers n 40 mg 2-14 tablet by ity of tablet 00:00: mouth at [place] 00 bedtime. Medical Branch insulin 2020-02 Yes 8U inject 8 Univer s regular 2-14 Units ity of human 00:00: under the [place] (NOVOLIN R 00 skin Medical REGULAR daily. Branch U-100 Daily at [facility]) 100 noon unit/mL injection atorvastati 2020-02 Yes [id number] 40mg Take 1 Univers n 40 mg 2-14 tablet by ity of tablet 00:00: mouth at [place] [address] bedtime. Medical Branch atorvastati 2020-02 Yes [id number] 40mg Take 1 Univers n 40 mg 2-14 tablet by ity of tablet 00:00: mouth at [place] [address] bedtime. Medical Branch atorvastati 2020-02 Yes [id number] 40mg Take 1 Univers n 40 mg 2-14 tablet by ity of tablet 00:00: mouth at [place] [address] bedtime. Medical Branch atorvastati 2020-02 Yes [id number] 40mg Take 1 Univers n 40 mg 2-14 tablet by ity of tablet 00:00: mouth at [place] [address] bedtime. Medical Branch atorvastati 2020-02 Yes [id number] 40mg Take 1 Univers n 40 mg 2-14 tablet by ity of tablet 00:00: mouth at [place] [address] bedtime. Medical Branch atorvastati 2020-02 Yes [id number] 40mg Take 1 Univers n 40 mg 2-14 tablet by ity of tablet 00:00: mouth at [place] [address] bedtime. Medical Branch atorvastati 2020-02 Yes [id number] 40mg Take 1 Univers n 40 mg 2-14 tablet by ity of tablet 00:00: mouth at [place] [address] bedtime. Medical Branch atorvastati 2020-02 Yes [id number] 40mg Take 1 Univers n 40 mg 2-14 tablet by ity of tablet 00:00: mouth at [place] [address] bedtime. Medical Branch atorvastati 2020-02 Yes [id number] 40mg Take 1 Univers n 40 mg 2-14 tablet by ity of tablet 00:00: mouth at [place] [address] bedtime. Medical Branch atorvastati 2020-02 Yes [id number] 40mg Take 1 Univers n 40 mg 2-14 tablet by ity of tablet 00:00: mouth at [place] [address] bedtime. Medical Branch atorvastati 2020-02 Yes [id number] 40mg Take 1 Univers n 40 mg 2-14 tablet by ity of tablet 00:00: mouth at [place] [address] bedtime. Medical Branch insulin 2020-02- No 8U inject 8 Unive rs regular 2-14 01-01 Units ity of human 00:00: 00:00 under the [place] (NOVOLIN R 00 :00 skin Medical REGULAR daily. Branch U-100 Daily at [facility]) 100 noon unit/mL injection Blood-Gluco Yes [...] Immunizations Ordered Filled Immunization Date Status Comments [facility] e Immunization Name Name Influenza Virus [...] rsity of MODERNA 0.25ML 00:00:00 [place] Medi sadnra BOOSTER VACCINE Branch SARS-COV-2 COVID-19 2021-01-31 Completed [...] 2020-12-03 Completed University o f Polysaccharide, 00:00:00 [place] Med ical PPSV23 (PNEUMOVAX) Branch Influenza Virus [...] Universit y of Vaccine Recomb Quad 00:00:00 [place] Medical IM, Preserv and ABX Branc h Free 18-64 YRS Influenza Virus 2019-11-22 Completed Universit y of Vaccine Recomb Quad 00:00:00 [place] Medical IM, Preserv and ABX Branc h [...] Universit y of Vaccine Recomb Quad 00:00:00 [place] [facility] IM, Preserv and ABX Branc h [...] Dosage 2018-03-25 Completed Unive rsity of 00:00:00 [place] [facility] HEP B, Adult Dosage 2018-03-25 Completed Unive rsity of 00:00:00 [facility] Branch HEP B, Adult Dosage 2018-03-25 Completed Unive rsity of 00:00:00 [place] [facility] HEP B, Adult Dosage 2018-03-25 Completed Unive rsity of 00:00:00 [place] [facility] HEP B, Adult Dosage 2018-03-25 Completed Unive rsity of 00:00:00 [place] [facility] HEP B, Adult Dosage 2018-03-25 Completed Unive rsity of 00:00:00 [place] [facility] HEP B, Adult Dosage 2018-03-25 Completed Unive rsity of 00:00:00 [place] [facility] HEP B, Adult Dosage 2018-03-25 Completed Unive rsity of 00:00:00 [place] [facility] HEP B, Adult Dosage 2018-03-25 [...] Dosage 2017-09-05 Completed Unive rsity of 00:00:00 [place] [facility] HEP B, Adult Dosage 2017-09-05 Completed Unive rsity of 00:00:00 [place] [facility] HEP B, Adult Dosage 2017-09-05 Completed Unive rsity of 00:00:00 [place] [facility] HEP B, Adult Dosage 2017-09-05 Completed Unive rsity of 00:00:00 [place] [facility] Pneumococcal 13 2015-02-19 Completed Universit y of [...] ical PPSV23 (PNEUMOVAX) Branch Pneumococcal 2011-02-19 Completed [place] o f Polysaccharide, 00:00:00 [place] Med ical PPSV23 (PNEUMOVAX) Branch Pneumococcal 2011-02-19 Completed [place] o f Polysaccharide, 00:00:00 [place] Med ical PPSV23 (PNEUMOVAX) Branch Vital Signs Vital Name Observation Time Observation Value Comments Source Systolic blood 2022-03-16 14:28:00 128 mm[Hg] Univer [facility]ity of [facility] Diastolic blood 2022-03-16 14:28:00 70 [facility] Heart rate 2022-03-16 14:28:00 93 /min [facility] Body temperature 2022-03-16 14:28:00 35.67 Lizz [facility] Respiratory rate 2022-03-16 14:28:00 17 /min [facility] Body weight 2022-03-16 14:28:00 81.058 kg [facility] BMI 2022-03-16 14:28:00 34.90 kg/m2 [facility] Oxygen saturation in 2022-03-16 14:28:00 98 /min [facility] Arterial blood by [facility] Pulse oximetry Branch Systolic blood 2022-03-14 19:37:00 138 mm[Hg] Univer sity of [facility] Diastolic blood 2022-03-14 19:37:00 87 mm[Hg] Unive rsity of [facility] Heart rate 2022-03-14 19:37:00 94 /min [facility] Respiratory rate 2022-03-14 19:37:00 20 /min [facility] Body height 2022-03-14 19:37:00 152.4 cm [facility] Body weight 2022-03-14 19:37:00 80.74 kg [facility] BMI 2022-03-14 19:37:00 34.76 kg/m2 [facility]i ty [facility] [place] [facility] Oxygen saturation in 2022-03-14 19:37:00 99 /min University of Arterial blood by [facility] Pulse oximetry Branch Systolic blood 2022-02-28 14:57:00 130 mm[Hg] Univer sity of pressure [place] [facility] Diastolic blood 2022-02-28 14:57:00 83 mm[Hg] Unive rsity of pressure [place] [facility] Heart rate 2022-02-28 14:57:00 117 /min [facility]i ty [facility] [place] [facility] Respiratory rate 2022-02-28 14:57:00 20 /min Univ ersity of [place] [facility] Body height 2022-02-28 14:57:00 152.4 cm [facility]i ty [facility] [place] [facility] Body weight 2022-02-28 14:57:00 80.377 kg [facility] [place] [facility] BMI 2022-02-28 14:57:00 34.61 kg/m2 [facility]i [facility] [place] [facility] Oxygen saturation in 2022-02-28 14:57:00 99 /min University of Arterial blood by [facility] Pulse oximetry Branch Systolic blood 2022-02-19 17:58:00 140 mm[Hg] Univer sity of pressure [place] [facility] Diastolic blood 2022-02-19 17:58:00 95 mm[Hg] Unive rsity of pressure [place] [facility] Heart rate 2022-02-19 17:58:00 115 /min [facility]i ty [facility] [place] [facility] Body temperature 2022-02-19 13:46:00 36.78 Lizz Univ ersity of [place] [facility] Respiratory rate 2022-02-19 13:46:00 18 /min Univ ersity of [place] [facility] Oxygen saturation in 2022-02-19 13:46:00 94 /min University of Arterial blood by [facility] Pulse oximetry Branch Body weight 2022-02-18 10:44:00 83.462 kg [facility]i ty [facility] [place] [facility] BMI 2022-02-18 10:44:00 35.94 kg/m2 [facility]i ty [facility] [place] [facility] Systolic blood 2022-02-16 16:07:00 116 mm[Hg] Univer sity of pressure [place] [facility] Diastolic blood 2022-02-16 16:07:00 71 mm[Hg] Unive rsity of [place] Heart rate 2022-02-16 16:07:00 85 /min [facility] Body temperature 2022-02-16 16:07:00 36.89 Lizz [facility] [place] [facility] Respiratory rate 2022-02-16 16:07:00 17 /min [facility] [place] [facility] Body weight 2022-02-16 16:07:00 84.823 kg [facility] BMI 2022-02-16 16:07:00 36.52 kg/m2 [facility] Oxygen saturation in 2022-02-16 16:07:00 96 /min [facility] Arterial blood by [facility] Pulse oximetry [place] Systolic blood 2021-10-05 15:13:00 152 mm[Hg] Univer sity of [place] Diastolic blood 2021-10-05 15:13:00 77 [facility]Hg[facility] 2021-10-05 15:12:00 152.4 cm [facility] Body weight 2021-10-05 15:12:00 88.315 kg [facility] BMI 2021-10-05 15:12:00 38.02 kg/m2 [facility] Procedures Procedure Date / Time Performing Clinician Source Performed AUTHORIZATION FOR RELEASE 2022-03-23 06:01:00 Doctor Unassigned, [facility] FLU 2022-03-16 14:43:42 Silverio Adam [facility] VACC(),65+YR,0.5 Medica l Branch ML,IM,ADJUVANTED,QUAD(FLU AD) POCT GLUCOSE (AUTOMATED) 2022-02-19 17:59:00 Brii Samson [facility] XR CHEST 2 VW 2022-02-19 16:23:57 Sriram Heath [facility] POCT GLUCOSE (AUTOMATED) 2022-02-19 13:45:00 Brii Samson [facility] MAGNESIUM 2022-02-19 12:23:00 Rocael Vaughan [facility] BASIC METABOLIC PANEL 2022-02-19 12:23:00 Rocael Vaughan [facility] (NA, K, CL, CO2, GLUCOSE, Medica l Branch BUN, CREATININE, [place]) CBC WITH DIFF 2022-02-19 12:23:00 Rocael Vaughan [facility] N-TERMINAL PRO-BNP 2022-02-19 12:23:00 Rocael Vaughan [facility] POCT GLUCOSE (AUTOMATED) 2022-02-19 07:07:00 OvMarcie youngi [facility] POCT GLUCOSE (AUTOMATED) 2022-02-19 06:10:00 Ovhannah [facility] [place] [facility] PO[facility] GLUCOSE (AUTOMATED) 2022-02-19 03:34:00 OvEdwardo younglani [facility] POCT GLUCOSE (AUTOMATED) 2022-02-18 23:14:00 OvEdwardo younglani [facility] POCT GLUCOSE (AUTOMATED) 2022-02-18 17:29:00 Ovhannah Brii [employer] [facility] POCT GLUCOSE (AUTOMATED) 2022-02-18 13:40:00 Chapin Brii [employer] [facility] BASIC METABOLIC PANEL 2022-02-18 10:53:00 Rocael Vaughan [facility] (NA, K, CL, CO2, GLUCOSE, Medica l Branch BUN, CREATININE, [place]) LIPID PANEL ([id number])(TOTAL 2022-02-18 10:53:00 [facility] Branch TRIGLYCERIDES, HDL) CBC WITH DIFF 2022-02-18 10:53:00 [facility] 2022-02-18 10:53:00 Rocael Vaughan [facility] POCT GLUCOSE (AUTOMATED) 2022-02-18 02:34:00 OvMarcie youngi [facility] POCT GLUCOSE (AUTOMATED) 2022-02-17 22:16:00 Ovhannah Brii [facility] POCT GLUCOSE (AUTOMATED) 2022-02-17 17:45:00 [facility]) 2022-02-17 14:01:00 Chapin [facility] TRANSTHORACIC ECHO (TTE) 2022-02-17 13:56:00 Chapin [facility] COMPLETE W/ CONTRAST Medical Bra nch MAGNESIUM 2022-02-17 09:47:00 Chapin [facility] BASIC METABOLIC PANEL 2022-02-17 09:47:00 Chapin [facility] (NA, K, CL, CO2, GLUCOSE, Medica l Branch BUN, CREATININE, [place]) N-TERMINAL PRO-BNP 2022-02-17 09:47:00 Chapin [facility] POCT GLUCOSE (AUTOMATED) 2022-02-17 03:55:00 Chapin [facility] POCT GLUCOSE (AUTOMATED) 2022-02-17 03:16:00 Chapin [facility] URINALYSIS 2022-02-16 18:07:00 Bird [facility] XR CHEST 1 VW 2022-02-16 17:06:49 Bird [facility] LIPASE 2022-02-16 16:59:00 Bird [facility] TROPONIN I 2022-02-16 16:59:00 Bird [facility] HEPATIC FUNCTION PANEL 2022-02-16 16:59:00 Bird [facility] ([id number]) (ALB,T.PRO,BILI [facility] T,BU/BC,ALT,AST,ALK PHOS) BASIC METABOLIC PANEL 2022-02-16 16:59:00 Bird, [facility] (NA, K, CL, CO2, GLUCOSE, Medica l Branch BUN, CREATININE, CA) CBC WITH DIFF 2022-02-16 16:59:00 Bird [facility] GLYCOSYLATED HEMOGLOBIN 2022-02-16 16:59:00 Chapin [facility] (A1C) [facility] N-TERMINAL PRO-BNP 2022-02-16 16:59:00 Marina Pang [facility] y of [facility] COVID-19 (ID NOW RAPID 2022-02-16 16:59:00 Marina Pang [facility] TESTING) Medical Branch LAB ONLY COVID 2022-02-16 16:59:00 Marina Pang [place] [facility] [place] INTERPRETATION [facility] HB ECG ROUTINE & RHYTHM 2022-02-16 16:52:36 Marina Pang [facility] CONSENT/REFUSAL FOR 2022-02-16 16:40:37 Doctor Unassigned, [facility] DIAGNOSIS AND TREATMENT [facility] POCT HEMOGLOBIN A1C TEST 2021-10-05 15:15:00 Amita Gomez [facility] Encounters Start End Encounter Admission Attending Care Care Encounter Source Date/Time Date/Time Type Type Clinicians Facility Department ID 2022-06-14 [facility] [id number] Common 12:46:01 Elaine [id number] [facility] 2022-06-02 Outpatient Lamb[facility] [id number] Common 14:48:01 Elaine [id number] [facility] 2020-12-17 Emergency [facility] [id number] Univers 21:39:43 [facility] [place] [facility] 2020-12-17 [facility] [id number] Univers 18:26:55 alvino BARAKAT [facility] 2020-12-17 Emergency [facility] [id number] Univers 16:06:19 [facility] 2022-06-15 2022-06-15 Outpatient Moustapha ADAM [facility] [id number] Univers 09:00:00 09:00:00 SILVERIO [facility] 2022-04-27 2022-04-27 Outpatient Moustapha HEATH [facility] [id number] Univers 10:20:00 10:20:00 SRIRAM grove [facility] 2022-03-27 2022-03-27 Refisra Heath [facility] [id number] Univers 00:00:00 00:00:00 Qiachaim PALOMO 350.1.13.10 ity of [facility] [place] [phone] Ne dical NAL 059 [facility] 2022-03-23 2022-03-23 Orders Doctor YANA 1.2.840.114 [id number] Univers 00:00:00 00:00:00 Only Unassigned, THELMA 350.1.13.10 ity [facility] 4.2.7.2.686 Bernabe as [phone] [address] 2022-03-22 2022-03-22 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 2, Adc Lab [facility] 1.2.840.114 [id number] Univers 08:00:00 08:15:00 Visit Kia Silverio LENORAWAQAS 350.1.13.10 ity of [facility] 4.2.7.2.[place] [phone] Ne dicde NAL 353 [facility] 2022-03-22 2022-03-22 Out[facility] [id number] Univers 08:00:00 08:00:00 SILVERIO ity [facility] 2022-03-16 2022-03-16 Outpatient [facility] [id number] Univers 08:40:00 09:58:33 SILVERIO ity [facility] 2022-03-16 2022-03-16 Office [facility] 1.2.840.114 [id number] Univers 08:40:00 09:00:00 [facility] 350.1.13.10 i ty of [facility] 4.2.7.2.[place] [phone] Ne dical NAL 059 [facility] 2022-03-14 2022-03-14 Office [facility]AD[facility] 1.2.840.114 [id number] Univers 13:40:00 14:00:00 Visit Sriram COOLEYWAQAS 350.1.13.10 ity of [facility] 4.2.[place].2.[place] [phone] Ne dical NAL [address] [place] [address] 2022-03-14 2022-03-14 Outpatient R KUMAR, [facility] [id number] Univers 13:40:00 13:40:00 SRIRAM de oliveira o f [facility] 2022-03-09 2022-03-09 Outpatient R INEZANI, [facility] [id number] Univers 09:59:09 23:59:00 SILVERIO ity of [facility] 2022-02-28 2022-02-28 Outpatient R KUMAR, [facility] [id number] Univers 09:00:00 09:16:53 SRIRAM de oliveira o f [facility] 2022-02-28 2022-02-28 Office Kumar, [facility] 1.2.840.114 [id number] Univers 09:00:00 09:16:53 Visit Sriram PALOMO 350.1.13.10 ity of [place] 4.2.7.2.686 [place] [phone] Ne dical NAL 9 [facility] 2022-02-21 2022-02-21 Transition JONO Galvan 1.2.840.114 [id number] Univers 00:00:00 00:00:00 of Care Nara MG 350.1.13.10 it y of [place] 4.2.7.2.686 [place] [phone] [facility] [address] 2022-02-16 2022-02-19 Inpatient X CHAPIN [facility] SAMI [id number] Univers 10:48:00 16:07:00 BRII ity of [facility] 2022-02-16 2022-02-19 Hospital Bird Jose ManuelLeilani [facility] 1.2.840.11 [id number] Univers 10:48:00 16:07:00 Encounter Brii Samson 350.1.13.10 ity of [facility] 4.2.7.2.[place] CAMPUS [phone] [facility] [address] 2022-02-16 2022-02-16 Urgent Fang Perez [facility] 1.2.840.114 [id number] Univers 09:45:00 10:05:00 Care Unknown, Attending HEALTH 350.1.13.10 ity of [place] 4.2.7.2.686 Bernabe as HUMPHREY?BLEA [id number] Ne sherif [facility] [address] MEDICAL OFFICE BUILDING 2022-02-16 2022-02-16 Outpatient R CASSI [facility] [id number] Univers 09:45:00 09:45:00 FANG itkelsie [facility] 2022-01-31 2022-01-31 Outpatient R KUMAR [facility] [id number] Univers 14:20:00 14:20:00 SRIRAM de oliveira o maine [facility] 2022-01-31 2022-01-31 Outpatient R KUMAR [facility] [id number] Univers 14:20:00 14:20:00 SRIRAM de oliveira o maine [facility] 2021-12-02 2021-12-02 Outpatient [facility] [id number] Univers 10:20:00 10:20:00 [facility]IO[facility] 2021-11-25 2021-11-25 Outpatient [facility] [id number] Univers 10:20:00 10:20:00 SILVERIO [facility] 2021-11-25 2021-11-25 Outpatient R KIA [facility] [id number] Univers 10:20:00 10:20:00 [facility] 2021-10-05 2021-10-05 Outpatient R JASON LEVI [facility] [id number] Univers 10:30:00 11:22:11 AMITA GOMEZ [facility] 2021-10-05 2021-10-05 Office Amita Gomez [facility] 1.2.840.114 [id number] Univers 10:30:00 11:22:11 Visit HEALTH 350.1.13.10 it y of [place] 4.2.7.2.686 Bernabe as HUMPHREY?BLEA [id number] Ne sherif KELSI [address] MEDICAL OFFICE BUILDING 2021-09-21 2021-09-21 Telephone [facility]AD[facility] 1.2.124.196 [id number] Univers 00:00:00 00:00:00 Wentong HEALTH 350.1.13.10 it y of [place] 4.2.7.2.686 Bernabe as HUMPHREY?BLEA [phone] Ne dical KNEY [address] MEDICAL OFFICE BUILDING 2021-08-19 2021-08-19 Outpatient R SEWANI, [facility] [id number] Univers 11:20:00 11:20:00 SILVERIO [facility] 2021-08-16 2021-08-16 Outpatient R CASTLE, [facility] [id number] Univers 13:00:00 13:00:00 WENTONG [facility] 2021-08-01 2021-08-01 Office Kumar, [facility] 1.2.840.114 [id number] Univers 13:40:00 14:02:37 Visit Sriram PALOMO 350.1.13.10 ity jarek [place].2.7.2.686 [place] [phone] Ne sherif NAL [address] [facility] 2021-08-01 2021-08-01 Outpatient R KUMAR, [facility] [id number] Univers 13:40:00 14:02:37 SRIRAM fergusony o [facility] 2021-08-01 2021-08-01 Outpatient R KUMAR, [facility] [id number] Univers 13:40:00 13:40:00 SRIRAM fergusony o [facility] 2021-08-01 2021-08-01 Outpatient R UKMAR, [facility] [id number] Univers 13:40:00 13:40:00 SRIRAM fergusony o [facility] 2021-08-01 2021-08-01 Outpatient R KUMAR, [facility] [id number] Univers 13:40:00 13:40:00 SRIRAM fergusony o [facility] 2021-08-01 2021-08-01 Outpatient R KUMAR, [facility] [id number] Univers 13:40:00 13:40:00 SRIRAM ity o [facility] 2021-07-22 2021-07-22 Refill Kumar, [facility] 1.2.840.114 [id number] Univers 00:00:00 00:00:00 Sriram PALOMO 350.1.13.10 ity jarek [place].2.[place].2.686 [place] [phone] Ne dical NAL 9 [facility] 2021-06-24 2021-06-24 Outpatient R KIA [facility] [id number] Univers 10:00:00 10:46:29 [facility]IO[facility] 2021-06-24 2021-06-24 Office [facility] 1.2.840.114 [id number] Univers 10:00:00 10:20:00 Visit Silverio PALOMO 350.1.13.10 i ty of [facility] 4.2.7.2.686 [place] PROFESSIO [phone] Ne dical NAL [address] [place] [address] 2021-06-24 2021-06-24 Outpatient R KIA, [facility] [id number] Univers 10:00:00 10:00:00 SILVERIO ity [facility] 2021-06-24 2021-06-24 Outpatient [facility] [id number] Univers 10:00:00 10:00:00 SILVERIO [facility] 2021-06-10 2021-06-10 Outpatient [facility] [id number] Univers 10:46:49 23:59:00 [facility] 2021-05-23 2021-05-23 Outpatient R KUMAR, [facility] [id number] Univers 15:00:00 15:00:00 SRIRAM ity o [facility] 2021-05-04 2021-05-04 Outpatient R KUMAR, [facility] [id number] Univers 08:00:00 23:59:00 QIANGJUN ity o f [facility] 2021-05-04 2021-05-04 Outpatient R KUMAR, [facility] [id number] Univers 08:00:00 08:00:00 DIMITRIJUN ity o f [facility] 2021-04-28 2021-04-28 Outpatient R BROOKS [facility] [id number] Univers 13:00:00 14:03:10 DIANN alvino [facility] 2021-04-28 2021-04-28 Office [facility]AD[facility] 1.2.870.825 [id number] Univers 13:00:00 14:03:10 Visit Diann PALOMO 350.1.13.10 i ty [facility] 4.2.7.2.686 [place] [facility] [phone] Ne dical [facility] 188 [facility] 2021-04-22 2021-04-22 Outpatient MITCHELL TORRES [facility] [id number] Univers 15:40:00 15:40:00 MITCHELL GARCIA kelsie [facility] 2021-04-22 2021-04-22 Outpatient Moustapha JOSE, MITCHELL [facility] [id number] Univers 15:40:00 15:40:00 MITCHELL GARCIA [facility] 2021-04-22 2021-04-22 Outpatient Moustapha JOSEMITCHELL Rock [facility] [id number] Univers 15:40:00 15:40:00 MITCHELL GARCIA [facility] 2021-04-18 2021-04-19 Emergency X IBKENNEDY [facility] ERT [id number] Univers 22:42:00 02:27:00 FOLUSHO ity [facility] 2021-04-18 2021-04-19 Emergency [facility] 1.2.840.114 [id number] Univers 22:42:00 02:27:00 Celia PALOMO 350.1.13.10 ity [facility] 4.2.7.2.686 [place] [phone] [facility] [address] 2021-04-18 2021-04-19 [facility] [id number] Univers 22:42:00 02:27:00 FOLUSHO ity [facility] 2021-04-18 2021-04-18 Orders Doctor YANA 1.2.840.114 [id number] Univers 00:00:00 00:00:00 Only Unassigned, THELMA 350.1.13.10 ity of Joiner [facility] 4.2.7.2.686 Bernabe as [id number] [facility] [address] 2021-04-15 2021-04-15 [facility] 1.2.287.294 [id number] Univers 12:42:22 23:59:00 Encounter Clare PALOMO 350.1.13.10 ity of [facility] 4.2.7.2.686 [place] [id number] [facility] [address] 2021-04-15 2021-04-15 Outpatient R KUMAR [facility] [id number] Univers 10:00:00 10:33:44 SRIRAM ity o f [facility] 2021-04-15 2021-04-15 Office [facility]AD[facility] 1.2.840.114 [id number] Univers 10:00:00 10:33:44 Visit Sriram [facility] 350.1.13.10 ity of [facility] 4.2.7.2.686 [place] [facility] [phone] Ne dical NAL 059 [facility] 2021-04-15 2021-04-15 Outpatient R KUMAR [facility] [id number] Univers 10:00:00 10:33:44 SRIRAM ity o [facility] 2021-04-15 2021-04-15 Outpatient R MAJOR [facility] [id number] Univers 00:00:00 00:00:00 WONDIFUL ity o f [facility] 2021-04-15 2021-04-15 Orders Doctor YANA 1.2.840.114 [id number] Univers 00:00:00 00:00:00 Only Unassigned, THELMA 350.1.13.10 ity of [place] [facility] 4.2.7.2.686 Bernabe as [phone] [facility] [address] 2021-04-13 2021-04-13 Outpatient R TIN [facility] [id number] Univers 10:00:00 11:12:56 WENTONG ity of [facility] 2021-04-13 2021-04-13 Office [facility] 1.2.840.114 [id number] Univers 10:00:00 11:12:56 Visit [facility] 350.1.13.10 it y of [place] 4.2.7.2.686 Bernabe as HUMPHREY?BLEA [phone] Ne dical KNEY [address] MEDICAL OFFICE BUILDING 2021-04-13 2021-04-13 Outpatient R TIN [facility] [id number] Univers 10:00:00 11:12:56 [facility] 2021-04-13 2021-04-13 Outpatient R TIN [facility] [id number] Univers 10:00:00 10:00:00 WENTONG ity [facility] 2021-04-13 2021-04-13 Outpatient R TIN [facility] [id number] Univers 10:00:00 10:00:00 WENTONG ity [facility] 2021-04-13 2021-04-13 Outpatient R TIN [facility] [id number] Univers 10:00:00 10:00:00 WENTONG ity [facility] 2021-04-12 2021-04-12 Nurse YANA Sanders 1.2.388.489 [id number] Univers 00:00:00 00:00:00 Triage Luis Alberto RENEE 350.1.13.10 it y of [facility] 4.2.7.2.686 Bernabe as [phone] [address] 2021-04-07 2021-04-07 Telephone [facility] 1.2.838.929 [id number] Univers 00:00:00 00:00:00 Sriram PALOMO 350.1.13.10 ity of [place] 4.2.7.2.[place] [phone] Ne dical NAL [address] [place] [address] 2021-04-01 2021-04-01 [facility] [id number] Univers 10:00:00 10:40:52 SILVERIO ity [facility] 2021-04-01 2021-04-01 Office [facility] 1.2.840.114 [id number] Univers 10:00:00 10:40:52 Visit Silverio [place] 350.1.13.10 i ty of [place] 4.2.7.2.[place] [phone] Ne dical NAL [address] [place] [address] 2021-03-30 2021-03-30 Telephone [facility]AD[facility] 1.2.840.114 [id number] Univers 00:00:00 00:00:00 [facility] 350.1.13.10 ity of [place] 4.2.7.2.686 Bernabe as HUMPHREY?BLEA [phone] Ne sherif HOLLAND [address] [place] [address] 2021-03-30 2021-03-30 Telephone Jose [facility] 1.2.840.114 [id number] Univers 00:00:00 00:00:00 Mitchell [facility] 350.1.13.10 ity of [place] 4.2.7.2.686 Bernabe as HUMPHREY?BLEA [phone] Ne sherif HOLLAND [address] [place] [address] 2021-03-29 2021-03-29 Outpatient MITCHELL TORRES [facility] [id number] Univers 08:00:00 09:38:08 MITCHELL GARCIA [facility] 2021-03-29 2021-03-29 Outpatient MITCHELL TORRES [facility] [id number] Univers 08:00:00 09:38:08 MITCHELL GARCIA [facility] 2021-03-29 2021-03-29 Outpatient MITCHELL TORRES [facility] [id number] Univers 08:00:00 08:00:00 MITCHELL GARCIA [facility] 2021-03-29 2021-03-29 Orders Doctor YANA 1.2.840.114 [id number] Univers 00:00:00 00:00:00 Only Unassigned, THELMA 350.1.13.10 it[facility] 4.2.7.2.686 Bernabe as [phone] [address] 2021-03-23 2021-03-23 Outpatient Moustapha HEATH [facility] [id number] Univers 15:40:00 16:06:08 SRIRAM de oliveira o f [facility] 2021-03-23 2021-03-23 Office [facility]AD[facility] 1.2.840.114 [id number] Univers 15:40:00 16:06:08 Visit Sriram PALOMO 350.1.13.10 ity [facility] 4.2.7.2.686 [place] [phone] Ne sherif ANDERSON 059 [facility] 2021-03-23 2021-03-23 Outpatient Moustapha HEATH [facility] [id number] Univers 16:00:00 16:00:00 SRIRAM alvino o f [facility] 2021-03-22 2021-03-22 Telephone Brooks [facility] 1.2.840.114 [id number] Univers 00:00:00 00:00:00 Diann DEWEY 350.1.13.10 i ty of [place] 4.2.7.2.686 [place] [phone] Ne dical NAL 188 [facility] 2021-03-21 2021-03-21 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 [place], Adc Lab Main [facility] 1.2.8 40.114 [id number] Univers 14:45:00 15:00:00 Visit [facility] 350.1 .13.10 ity of [place] 4.2.7.2.686 [place] [phone] Ne dical NAL 353 [facility] 2021-03-21 2021-03-21 Outpatient R [facility] [id number] Univers 14:45:00 14:45:00 [facility] 2021-03-21 2021-03-21 Outpatient R [facility] [id number] Univers 14:45:00 14:45:00 [facility] 2021-03-21 2021-03-21 Orders Doctor MILLAN 1.2.840.114 [id number] Univers 00:00:00 00:00:00 Only Unassigned, THELMA 350.1.13.10 ity of Jo[place] [facility] 4.2.7.2.686 Bernabe as [phone] [facility] [address] 2021-03-21 2021-03-21 Telephone JonathanrussellGLENNA 1.2.840.114 [id number] Univers 00:00:00 00:00:00 [facility] 350.1.13.10 i ty of [facility] 4.2.7.2.686 [place] [id number] [facility] [address] 2021-03-20 2021-03-20 Nurse YANA Bautista 1.2.840.114 [id number] Univers 00:00:00 00:00:00 Triage Cielo THELMA 350.1.13.10 it y of HOSPITAL 4.2.7.2.686 Bernabe as [id number] [facility] [address] 2021-03-18 2021-03-18 Emergency [facility] 1.2.840.114 [id number] Univers 17:02:00 22:45:00 Ananya PALOMO 350.1.13.10 ity of [place] 4.2.7.2.686 [place] [phone] [facility] [address] 2021-03-18 2021-03-18 Emergency X [facility] ERT [id number] Univers 17:02:00 17:02:00 ANANYA itkelsie [facility] 2021-03-18 2021-03-18 Emergency X [facility] ERT [id number] Univers 16:34:00 16:34:00 ity [facility] 2021-03-18 2021-03-18 Outpatient R EPI [facility] [id number] Univers 15:00:00 16:15:48 JENNIE martykelsie [facility] 2021-03-18 2021-03-18 Office [facility] 1.2.840.114 [id number] Univers 15:00:00 16:15:48 Visit Jennie [facility] 350.1.13.10 it y of [place] 4.2.7.2.686 Bernabe as HUMPHREY?BLEA [phone] [address] MEDICAL OFFICE BUILDING 2021-03-18 2021-03-18 Outpatient R [facility] ERT [id number] Univers 15:00:00 16:15:48 JENNIE martykelsie [facility] 2021-03-18 2021-03-18 Out[facility] [id number] Univers 15:00:00 16:15:48 JENNIE martykelsie [facility] 2021-03-18 2021-03-18 Transition JONO Galvan 1.2.840.114 [id number] Univers 00:00:00 00:00:00 of Care Nara MG 350.1.13.10 it y of [place] 4.2.7.2.686 [place] [id number] [facility] [address] 2021-03-122021-03-17 Inpatient X [facility] [id number] Univers 12:11:00 15:43:00 ALED ity [facility] 2021-03-12 2021-03-17 Hospital Bethel Damien [place] 1.2.840 .114 [id number] Univers 12:11:00 15:43:00 Encounter Soni Hunter THELMA 350.1.13.[address] [facility] 4.2.7.2.686 [place] [phone] [facility] [address] 2021-03-12 2021-03-17 Inpatient X [facility] [id number] Univers 12:11:00 15:43:00 [facility] 2021-03-17 2021-03-17 Nurse Esperanza Cronin 1.2.840.114 [id number] Univers 00:00:00 00:00:00 Triage THELMA 350.1.13.10 it y of [facility] 4.2.7.2.686 Bernabe as [id number] [facility] [address] 2021-03-16 2021-03-16 Case Jonathanrussell, [facility] 1.2.840.114 [id number] Univers 00:00:00 00:00:00 Management Wissam Y HEALTH 350.1.13.10 ity of [facility] 4.2.7.2.686 [place] [id number] [facility] [address] 2021-03-16 2021-03-16 Case Jonathanrussell, [facility] 1.2.840.114 [id number] Univers 00:00:00 00:00:00 Management Wissam Y HEALTH 350.1.13.10 ity of [place] [facility] 4.2.7.2.[place] [id number] [facility] [address] 2021-03-11 2021-03-11 Transition JONO Galvan 1.2.840.114 [id number] Univers 00:00:00 00:00:00 of Care Nara B MG 350.1.13.10 it y of [place] 4.2.7.2.686 [place] [id number] [facility] [address] 2021-03-11 2021-03-11 Telephone [facility]AD[facility] 1.2.972.561 [id number] Univers 00:00:00 00:00:00 Sriram PALOMO 350.1.13.10 ity of [place] 4.2.7.2.686 [place] [id number] Ne dical NAL 059 [facility] 2021-03-07 2021-03-10 Outpatient X ANUJ GONZALES [facility] SAMI [id number] Univers 08:28:00 14:20:00 ity of [facility] 2021-03-07 2021-03-10 Emergency WolfeHudson 1.2.840. 114 [id number] Univers 08:28:00 14:20:00 Anuj Gonzales THELMA 350.1.13.1 0 ity of [facility] 4.2.7.2.686 Bernabe as [id number] [facility] [address] 2021-03-07 2021-03-10 Outpatient X ANUJ GONZALES [facility] SAMI [id number] Univers 08:28:00 14:20:00 ity of [facility] 2021-03-09 2021-03-09 Surgery Misael Castro [facility] 1.2.840.114 [id number] Univers 09:36:00 10:16:00 Johnysharonda ABBASI 350.1.13.10 it y of [place] 4.2.7.2.686 Bernabe as BLDG [phone] [facility] [address] 2021-03-03 2021-03-03 Outpatient R HEMANTH [facility] [id number] Univers 14:00:00 14:44:31 SHANTEL ity of [facility] 2021-03-03 2021-03-03 Office HemanthADV[facility] 1.2.840.114 [id number] Univers 14:00:00 14:44:31 Visit Shantel PALOMO 350.1.13.10 ity [facility] 4.2.7.2.686 [place] [phone] Ne dical NAL 188 [facility] 2021-03-03 2021-03-03 Outpatient [facility] [id number] Univers 14:00:00 14:00:00 DIANN itkelsie [facility] 2021-02-08 2021-02-08 Office Sabina Barba [facility] 1.2.840.114 [id number] Univers 15:30:00 16:44:10 Visit KHLOE 350.1.13.10 it y [place] [id number] [address] 2021-02-08 2021-02-08 Outpatient R SABINA BARBA [facility] [id number] Univers 15:30:00 16:44:10 ity [facility] 2021-02-08 2021-02-08 Outpatient R GONSALO SABINA [facility] [id number] Univers 15:30:00 [facility]44:[facility] 2021-02-08 Outpatient R SABINA BARBA [facility] [id number] Univers 15:30:00 15:30:[facility] 2021-02-08 Outpatient R SABINA BARBA [facility] [id number] Univers 15:30:00 15:30:00 [facility]-02-03 2021-02-03 [facility] 1.2.840.114 [id number] Univers 00:00:00 00:00:00 Management Wondiful A HEALTH [id number] ity of [place] 4.2.7.2.686 Bernabe as HUMPHREY?BLEA [phone] Ne jamilahelinor TEREZAKELSI [address] [facility] 2021-02-01 2021-02-01 Office [facility] 1.2.840.114 [id number] Univers 15:30:00 16:58:42 Visit Ericka HEALTH 350.1.13.10 it y of [place] 4.2.7.2.686 Bernabe as HUMPHREY?BLEA [phone] Ne jamilahelinor TEREZA [address] MEDICAL OFFICE [facility]ILDING 2021-02-01 2021-02-01 [facility] [id number] Univers 15:30:00 16:58:42 ERICKA ity [facility] 2021-02-01 2021-02-01 Outpatient R MEKA [facility] [id number] Univers 16:30:00 16:30:00 ERICKA [facility] 2021-02-01 2021-02-01 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, Ang - Db [facility] 1.2.840.1 [id number] Univers 16:02:42 16:17:42 Visit Ericka Ackerman [facility] [id number] ity of [place] 4.2.7.2.686 Bernabe as HUMPHREY?BLEA [id number] [address] MEDICAL OFFICE [facility] 2021-02-01 2021-02-01 Outpatient R MEKA [facility] [id number] Univers 15:30:00 15:30:00 [facility] 2021-01-31 2021-01-31 [facility] [id number] Univers 13:40:00 13:44:29 SRIRAM de oliveira [facility] 2021-01-31 2021-01-31 [facility] [id number] Univers 13:40:00 13:44:29 [facility] 2021-01-31 2021-01-31 Office [facility] 1.2.840.114 [id number] Univers 13:18:52 13:44:29 Visit Sriram [place] 350.1.13.10 ity [facility] 4.2.7.2.686 [place] [phone] Ne dical NAL 059 [facility] 2021-01-31 2021-01-31 Outpatient [facility] [id number] Univers 13:40:00 13:40:00 SRIRAM de oliveira o [facility] 2021-01-31 2021-01-31 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 Lab, Ang - Db [facility] 1.2.840.1 14 [id number] Univers 10:03:00 10:18:00 Visit Dimitri HeathFormerly [facility] 350.1.13.10 ity of [place] 4.2.7.2.686 Bernabe as HUMPHREY?BLEA [phone] [address] MEDICAL OFFICE [facility] 2021-01-31 2021-01-31 Office McminnADVANC[facility] 1.2.840.114 [id number] Univers 09:22:40 10:03:18 Visit Wondiful A HEALTH 350.1.13.10 ity of [place] 4.2.7.2.686 Bernabe as HUMPHREY?BLEA [phone] Ne sherif [place] 044 [facility] OFFICE [facility] 2021-01-31 2021-01-31 Outpatient R [facility] [id number] Univers 09:30:00 09:30:00 WONDIFUL ity o f [facility] 2021-01-11 2021-01-11 Case [facility] 1.2.840.114 [id number] Univers 00:00:00 00:00:00 Management Wondiful A HEALTH 350.1.13.10 ity of [place] 4.2.7.2.686 Bernabe as HUMPHREY?BLEA [phone] Ne sherif HO[place] 044 [facility] OFFICE [facility] 2021-01-07 2021-01-07 Outpatient R [facility] [id number] Univers 16:30:00 23:59:00 WONDIFUL ity o f [facility] 2021-01-07 2021-01-07 Hospital [facility]AD[facility] 1.2.871.303 [id number] Univers 16:30:00 23:59:00 Encounter Wondiful A HEALTH 350.1.13.10 ity of [place] 4.2.7.2.686 Bernabe as HUMPHREY?BLEA [phone] Ne sherif HO[place] [address] MEDICAL OFFICE [facility] 2021-01-07 2021-01-07 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 Lab, Ang - Db [facility] 1.2.840.1 14 [id number] Univers 16:36:52 16:51:52 Visit Clare Gonsalves A HEALTH 350.1.13.1 0 ity of [place] 4.2.7.2.686 Bernabe as HUMPHREY?BLEA [phone] Ne sherif HOLLAND 353 [facility] OFFICE [facility] 2021-01-07 2021-01-07 Outpatient R [facility] [id number] Univers 16:15:00 16:37:00 WONDIFUL ity o f [facility] 2021-01-07 2021-01-07 Office [facility]AD[facility] 1.2.840.114 [id number] Univers 15:34:25 16:37:00 Visit Wondiful A HEALTH 350.1.13.10 ity of [place] 4.2.7.2.686 Bernabe as HUMPHREY?BLEA [phone] [address] MEDICAL OFFICE [facility] 2021-01-05 2021-01-05 Telephone Mc[facility]AD[facility] 1.2.840.114 [id number] Univers 00:00:00 00:00:00 Wondiful A HEALTH 350.1.13.10 ity of [place] 4.2.7.2.686 Bernabe as HUMPHREY?BLEA [phone] [address] 2020-12-28 2020-12-28 Outpatient R [facility] [id number] Univers 14:00:00 14:00:00 SILVERIO ity of [facility] 2020-12-27 2020-12-27 Outpatient R [facility] [id number] Univers 13:14:51 23:59:00 WONDIFUL ity o f [facility] 2020-12-27 2020-12-27 [facility] 1.2.096.855 [id number] Univers 13:00:00 23:59:00 Encounter Wondiful A [place] 350.1.13.10 ity of [place] 4.2.7.2.686 [place] [facility] [phone] [address] 2020-12-27 2020-12-27 Outpatient R [facility] [id number] Univers 00:00:00 00:00:00 WONDIFUL ity o f [facility] 2020-12-13 2020-12-13 Telephone [facility]AD[facility] 1.2.840.114 [id number] Univers 00:00:00 00:00:00 Wondiful A Health 350.1.13.10 ity of [place] 4.2.7.2.686 Bernabe as Humphrey?Blea [phone] Me [address] Office [facility] 2020-12-13 2020-12-13 Telephone Major [facility] 1.2.840.114 [id number] Univers 00:00:00 00:00:00 Wondiful A Health 350.1.13.10 ity of [place] 4.2.7.2.686 Bernabe as Humphrey?Blea [phone] [address] Office [facility] 2020-12-06 2020-12-06 Telephone Major [facility] 1.2.840.114 [id number] Univers 00:00:00 00:00:00 Wondiful A Health 350.1.13.10 ity of [place] 4.2.7.2.686 Bernabe as Humphrey?Blea [phone] [address] Office [facility] 2020-12-03 2020-12-03 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 Lab, Ang - Db [facility] 1.2.840.1 14 [id number] [facility] 16:48:38 17:03:11 Visit Clare Gonsalves Health 350.1.13.1 0 ity of [place] 4.2.7.2.686 Bernabe as Humphrey?Blea [phone] [address] Office [facility] 2020-12-03 2020-12-03 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 Lab, Ang - Db [facility] 1.2.840.1 14 [id number] Univers 16:48:38 17:03:11 Visit Clare Gonsalves A Health 350.1.13.1 0 ity of [place] 4.2.7.2.686 Bernabe as Humphrey?Blea [phone] [address] Office [facility] 2020-12-03 2020-12-03 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 Lab, Ang - Db [facility] 1.2.840.1 14 [id number] [facility] 16:48:38 17:03:11 Visit Clare Gonsalves A HEALTH 350.1.13.1 0 ity of [place] 4.2.7.2.686 Bernabe as HUMPHREY?BLEA [phone] [address] OFFICE [facility] 2020-12-03 2020-12-03 Office Major [facility] 1.2.840.114 [id number] Univers 15:32:14 16:49:03 Visit Wondiful A Health 350.1.13.10 ity of [place] 4.2.7.2.686 Bernabe as Humphrey?Blea [phone] Ne sherif kney 044 [facility] 2020-12-03 2020-12-03 Outpatient R MAJOR [facility] [id number] [facility] 15:45:00 15:45:00 WONDIFUL ity o f [facility] 2020-11-23 2020-11-23 Office [facility] 1.2.840.114 [id number] [facility] 09:49:05 10:43:01 Visit Silverio [place] 350.1.13.10 i ty of [place] 4.2.7.2.686 [place] Profess[place] [phone] [address] 2020-11-23 2020-11-23 Outpatient R [facility] [id number] Univers 10:00:00 10:00:00 SILVERIO ity of [facility] 2020-11-15 2020-11-15 Refisra HeathADVANCED [facility] 1.2.840.114 [id number] Univers 00:00:00 00:00:00 Qiachaim [place] 350.1.13.10 ity of [place] 4.2.7.2.686 [place] Profess[place] [phone] [address] 2020-11-15 2020-11-15 Refisra GonsalvesADVANCED CARE [facility] 1.2.840.114 [id number] Univers 00:00:00 00:00:00 Wondiful A [place] 350.1.13.10 ity of [place] 4.2.7.2.686 [place] [phone] [facility] nal [address] [place] [address] 2020-11-11 2020-11-11 Refisra GonsalvesADVANCED [facility] 1.2.840.114 [id number] Univers 00:00:00 00:00:00 Wondiful A Health 350.1.13.10 ity of [place] 4.2.7.2.686 Bernabe as Professio [phone] [place] [address] [facility] 2020-10-05 2020-10-05 Cali GonsalvesADVANCED [facility] 1.2.840.114 [id number] Univers 00:00:00 00:00:00 Wondiful A Health 350.1.13.10 ity of [place] 4.2.7.2.686 Bernabe as Professio [phone] [address] 2020-10-04 2020-10-04 Orders Doctor YANA 1.2.840.114 [id number] Univers 00:00:00 00:00:00 Only Unassigned, THELAM 350.1.13.10 ity of [place] [facility] 4.2.7.2.686 Bernabe as [phone] [address] 2020-09-24 2020-09-24 Refisra GonsalvesADVANCED [facility] 1.2.840.114 [id number] Univers 00:00:00 00:00:00 Wondiful A Health 350.1.13.10 ity of [place] 4.2.7.2.686 Bernabe as Professio [phone] [facility] 044 [facility] 2020-09-09 2020-09-09 Cali HeathADVANCED [facility] 1.2.840.114 [id number] Univers 00:00:00 00:00:00 Qiangjun [place] 350.1.13.10 ity of [place] 4.2.7.2.686 [place] [phone] [facility] 059 [facility] 2020-09-03 2020-09-03 Cali GonsalvesADVANCED [facility] 1.2.840.114 [id number] Univers 00:00:00 00:00:00 Wondiful A Health 350.1.13.10 ity of [place] 4.2.7.2.686 Bernabe as Professio [phone] [address] 2020-07-27 2020-07-27 Outpatient R KIA [facility] [id number] Univers 10:20:00 10:20:00 SILVERIO ity of [facility] 2020-07-27 2020-07-27 Office Kia [facility] 1.2.840.114 [id number] Univers 09:56:55 10:16:55 Visit Silverio [place] 350.1.13.10 i ty of [place] 4.2.7.2.686 [place] [phone] Ne dical nal 059 [facility] 2020-07-13 2020-07-13 Orders Doctor YANA 1.2.840.114 [id number] Univers 00:00:00 00:00:00 Only Unassigned, THELMA 350.1.13.10 ity of [place] [facility] 4.2.7.2.686 Bernabe as [phone] [address] 2020-07-08 2020-07-08 Refill MajorAD[facility] 1.2.840.114 [id number] Univers 00:00:00 00:00:00 Wondiful A Health 350.1.13.10 ity of [place] 4.2.7.2.686 Bernabe as Professio [phone] [facility] 044 [facility] 2020-06-29 2020-06-29 Outpatient R [facility] [id number] Univers 10:30:00 10:30:00 ity of [facility] 2020-06-29 2020-06-29 Outpatient R [facility] [id number] Univers 10:30:00 10:30:00 SILVERIO ity [facility] 2020-06-07 2020-06-07 Office KumarADV[facility] 1.2.840.114 [id number] Univers 13:02:14 13:29:23 Visit Guillelisazechariah [place] 350.1.13.10 ity of [place] 4.2.7.2.686 [place] [phone] Ne dical nal 059 [facility] 2020-06-07 2020-06-07 Outpatient R [facility] [id number] Univers 13:00:00 13:00:00 SRIRAM diamond f [facility] 2020-06-02 2020-06-02 Outpatient R DEE [facility] [id number] Univers 19:20:00 19:20:00 VIRI diamond f [facility] 2020-06-02 2020-06-02 Laboratory Lab, Adc Fam Pob I [facility] 1.2. 840.114 [id number] Univers 18:38:28 18:58:28 Only JoseKarla [facility] 350.1.13.10 ity of [place] 4.2.7.2.686 [facility] [phone] Ne dic[address] Office Building One 2020-06-02 2020-06-02 Letter Doctor YANA 1.2.840.114 [id number] Univers 00:00:00 00:00:00 (Out) Unassigned, THELMA 350.1.13.10 ity of [place] [facility] 4.2.7.2.686 Bernabe as [phone] [address] 2020-06-02 2020-06-02 Letter Doctor YANA 1.2.840.114 [id number] Univers 00:00:00 00:00:00 (Out) Unassigned, THELMA 350.1.13.10 ity of [place] [facility] 4.2.7.2.686 Bernabe as [phone] [address] 2020-06-02 2020-06-02 Letter Doctor MILLAN 1.2.840.114 [id number] Univers 00:00:00 00:00:00 (Out) Unassigned, THELMA 350.1.13.10 ity of [place] [facility] 4.2.7.2.686 Bernabe as [phone] [address] 2020-06-02 2020-06-02 Letter Doctor MILLAN 1.2.840.114 [id number] Univers 00:00:00 00:00:00 (Out) Unassigned, THELMA 350.1.13.10 ity of [place] [facility] 4.2.7.2.686 Bernabe as [phone] [address] 2020-05-20 2020-05-20 Telephone YANA Samano 1Karen2.184.893 [id number] Univers 00:00:00 00:00:00 Teri RENEE 350.1.13.10 ity of HOSPITAL 4.2.7.2.686 Bernabe as [phone] [place] 58[address]72 [place] 2020-05-20 2020-05-20 Telephone YANA Samano 1.2.488.086 [id number] 00:00:00 00:00:00 Teri RENEE 350.1.13.10 [facility] [phone] 08 2020-04-28 2020-04-28 Refill [facility]AD[facility] 1.2.840.114 [id number] Univers 00:00:00 00:00:00 Silverio [place] 350.1.13.10 i ty of [place] 4.2.7.2.686 [place] [phone] [address] 2020-04-27 2020-04-27 Office [facility] 1.2.840.114 [id number] Univers 11:25:29 11:45:29 Visit Silverio [place] 350.1.13.10 i ty of [address]2.686 [place] Profess[place] [phone] [address] 2020-04-27 2020-04-27 Outpatient [facility] [id number] Univers 11:40:00 11:40:00 SILVERIO ity [facility] 2020-04-26 2020-04-26 Outpatient [facility] [id number] Univers 10:20:00 10:20:00 ERICH ity [facility] 2020-04-14 2020-04-14 [facility] MajorAD[facility] 1.2.726.336 [id number] Univers 09:18:24 23:59:00 Encounter Wondiful Lauryn CooleyL[place] 350.1.13.10 ity of [place] 4.2.7.2.686 [place] [phone] [facility] [address] 2020-04-14 2020-04-14 Outpatient R [facility] [id number] Univers 00:00:00 00:00:00 WONDIFUL ity o f [facility] 2020-03-31 2020-03-31 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 [place], Adc Lab Main [facility] 1.2.8 40.114 [id number] Univers 09:18:24 09:33:24 Visit Noah Gonsalvesjoshua Lauryn Palomo 350.1.13. 10 ity of [place] 4.2.7.2.686 [place] [phone] Me dical nal 353 [facility] 2020-03-31 2020-03-31 Outpatient R MAJOR [facility] [id number] Univers 09:15:00 09:15:00 WONDIFUL ity o f [facility] 2020-03-30 2020-03-30 Laboratory Pacemaker/Icd, [facility] 1.2. 840.114 [id number] Univers 12:51:02 13:15:05 Only Silverio Adam 350.1.13.10 ity of [place] 4.2.7.2.686 [place] [phone] Ne dical nal 059 [facility] 2020-03-30 2020-03-30 Outpatient R [facility] [id number] Univers 13:00:00 13:00:00 ity of [facility] 2020-03-29 2020-03-29 Office [facility]AD[facility] 1.2.840.114 [id number] Univers 15:15:24 16:12:41 Visit [facility] Lauryn [facility] 350.1.13.10 ity of [place] 4.2.7.2.686 Bernabe as Professio [phone] Ne dical nal [address] Office [address] [facility] 2020-03-29 2020-03-29 Outpatient R MAJOR [facility] [id number] Univers 15:30:00 15:30:00 WONDIFUL ity o f [facility] 2020-03-03 2020-03-03 Orders Doctor MILLAN 1.2.840.114 [id number] Univers 00:00:00 00:00:00 Only Unassigned, THELMA 350.1.13.10 [facility] 4.2.7.2.686 Bernabe as [phone] [address] 2020-02-03 2020-02-03 Outpatient R KUMAR [facility] [id number] Univers 14:20:00 14:20:00 DIMITRIJUN ity o f [facility] 2020-02-03 2020-02-03 Office [facility] 1.2.840.114 [id number] Univers 13:38:09 14:13:45 Visit Guillechaim Palomo 350.1.13.10 ity of [place] 4.2.7.2.686 [place] Profess[place] [phone] [address] 2020-01-27 2020-01-27 Office [facility] 1.2.840.114 [id number] Univers 10:58:57 11:32:49 Visit Silverio De[place] 350.1.13.10 i ty of [place] 4.2.7.2.686 [place] Profess[place] [phone] [address] 2020-01-27 2020-01-27 Outpatient R [facility] [id number] Univers 11:00:00 11:00:00 SILVERIO ity of [facility] 2020-01-20 2020-01-20 Orders Doctor YANA 1.2.840.114 [id number] Univers 00:00:00 00:00:00 Only Unassigned, THELMA 350.1.13.10 ity of [place] [facility] 4.2.7.2.686 Bernabe as [phone] [address] 2020-01-20 2020-01-20 Telephone [facility] 1.2.110.300 [id number] Univers 00:00:00 00:00:00 Sriram [place] 350.1.13.10 ity of [place] 4.2.7.2.686 [place] [phone] [address] 2020-01-20 2020-01-20 Refill [facility] 1.2.840.114 [id number] Univers 00:00:00 00:00:00 Sriram Palomo 350.1.13.10 ity of [place] 4.2.7.2.686 [place] [phone] [address] 2020-01-14 2020-01-14 Orders Doctor YANA 1.2.840.114 [id number] Univers 00:00:00 00:00:00 Only Unassigned, THELMA 350.1.13.10 ity of [place] [facility] 4.2.7.2.686 Bernabe as [phone] [address] 2020-01-12 2020-01-12 Outpatient R KUMAR, [facility] [id number] Univers 10:00:00 10:00:00 DIMITRIZECHARIAH alvino o f [facility] 2020-01-05 2020-01-05 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 2, Adc Lab [facility] 1.2.840.114 [id number] Univers 15:31:18 15:46:18 Visit Omkrystle, Min Palomo 350.1.1 3.10 ity of [place] 4.2.7.2.686 [place] [phone] Ne dical nal 353 [facility] 2020-01-05 2020-01-05 Office [facility] 1.2.840.114 [id number] Univers 14:39:45 15:28:14 Visit Minorlando Palomo 350.1.13.10 i ty of Gretchen Bar[place] 4.2.7.2.686 [place] [phone] Ne dical nal 059 [facility] 2020-01-05 2020-01-05 Outpatient R FREDDY, [facility] [id number] Univers 14:45:00 14:45:00 MIN ity of [facility] 2020-01-05 2020-01-05 Orders Doctor MILLAN 1.2.840.114 [id number] Univers 00:00:00 00:00:00 Only Unassigned, THELMA 350.1.13.10 ity of [place] [facility] 4.2.7.2.686 Bernabe as [phone] [address] 2020-01-01 2020-01-01 Telephone Kumar, [facility] 1.2.216.110 [id number] Univers 00:00:00 00:00:00 Guillelisazechariah [place]omo 350.1.13.10 ity of [place] 4.2.7.2.686 [place] [phone] Ne dical nal 059 [facility] 2019-12-19 2019-12-19 Office [facility]ADV[facility] 1.2.840.114 [id number] Univers 11:30:41 12:16:36 Visit Nita [place]omo 350.1.13.10 i ty of [place] 4.2.7.2.686 [place] [phone] Ne dical nal 085 [facility] 2019-12-19 2019-12-19 Outpatient R KY DEGROOTCRISTIAN [facility] [id number] Univers 11:40:00 11:40:00 NITA DEGROOT i ty of [facility] 2019-12-19 2019-12-19 Telephone [facility] 1.2.635.688 [id number] Univers 00:00:00 00:00:00 Sriram [place]omo 350.1.13.10 ity of [place] 4.2.7.2.686 [place] [phone] [facility] nal 059 [facility] 2019-12-18 2019-12-18 Orders Doctor YANA 1.2.840.114 [id number] Univers 00:00:00 00:00:00 Only Unassigned, THELMA 350.1.13.[address] [facility] 4.2.7.2.686 Bernabe as [phone] [address] 2019-12-16 2019-12-16 Office [facility] 1.2.840.114 [id number] Univers 08:53:47 09:13:47 Visit Silverio Palomo 350.1.13.10 i ty of [place] 4.2.7.2.686 [place] [phone] [facility] nal 059 [facility] 2019-12-16 2019-12-16 Outpatient [facility] [id number] Univers 09:00:00 09:00:00 SILVERIO ity of [facility] 2019-12-15 2019-12-15 Telephone [facility] 1.2.840.114 [id number] Univers 00:00:00 00:00:00 Wondiful A Health 350.1.13.10 ity of [place] 4.2.7.2.686 Bernabe as Professio [phone] [facility] nal [address] [place] Office [facility] One 2019-12-15 2019-12-15 Case [facility] 1.2.840.114 [id number] Univers 00:00:00 00:00:00 Management Wondiful A Health 350.1.13.10 ity of [place] 4.2.7.2.686 Bernabe as Professio [phone] Ne dical [facility] [address] [place] Office [facility] 2019-12-10 2019-12-10 Orders Doctor YANA 1.2.840.114 [id number] Univers 00:00:00 00:00:00 Only Unassigned, THELMA 350.1.13.10 ity of [place] [facility] 4.2.7.2.686 Bernabe as [phone] [address] 2019-12-09 2019-12-09 Urgent Provider, [facility] 1.2.840.114 [id number] Univers 14:46:41 15:59:38 Care Anny [facility] 350.1.13.10 ity of [place] 4.2.7.2.686 Bernabe as Professio [phone] [address] Office [facility] 2019-12-09 2019-12-09 Outpatient R ANNY [facility] [id number] Univers 15:00:00 15:00:00 MONICA ity of [facility] 2019-12-04 2019-12-04 Office Major [facility] 1.2.840.114 [id number] Univers 12:39:51 13:39:11 Visit Wonjoshua A Health 350.1.13.10 ity of [place] 4.2.7.2.686 Bernabe as Professio [phone] [address] Office [facility] 2019-12-04 2019-12-04 Outpatient R MAJOR [facility] [id number] Univers 13:00:00 13:00:00 WONDIFUL ity o f [facility] 2019-12-02 2019-12-02 Laboratory Pacemaker/Icd, [facility] 1.2. 840.114 [id number] Univers 10:50:24 11:27:03 Only Sriram Heath [place] 350.1.13.10 ity of [place] 4.2.7.2.686 [place] [phone] [facility] 059 [facility] 2019-12-02 2019-12-02 Outpatient R [facility] [id number] Univers 11:00:00 11:00:00 ity of [facility] 2019-12-02 2019-12-02 Telephone [facility] 1.2.840.114 [id number] Univers 00:00:00 00:00:00 Wondiful A Health 350.1.13.10 ity of [place] 4.2.7.2.686 Bernabe as Professio [phone] Ne dical nal [address] Office [address] [facility] 2019-12-01 2019-12-01 Office [facility] 1.2.840.114 [id number] Univers 15:16:46 16:01:04 Visit Sriram Palomo 350.1.13.10 ity of [place] 4.2.7.2.686 [place] [phone] Ne dical nal 059 [facility] 2019-12-01 2019-12-01 Outpatient R [facility] [id number] Univers 15:40:00 15:40:00 SRIRAM martyy o f [facility] 2019-12-01 2019-12-01 Transition Jono Mccurdy 1.2.840.114 [id number] Univers 00:00:00 00:00:00 of Care Jo Mg 350.1.13.10 i [place] [phone] [facility] [address] 2019-11-26 2019-11-28 Hospital Kirt Thomason [facility] .2.840.1 14 [id number] Univers 14:42:00 15:06:00 Encounter Gab Servin 350.1.13.10 ity of [place].2.[place] [phone] [facility] [address] 2019-11-26 2019-11-28 Inpatient X GAB SERVNI [facility] SAMI [id number] Univers 14:42:00 15:06:00 ity of [facility] 2019-11-26 2019-11-26 Telephone [facility] 1.2.840.114 [id number] Univers 00:00:00 00:00:00 [facility] 350.1.13.10 ity of [place] 4.2.7.2.686 Bernabe as Professio [phone] Ne dical nal 044 [place] [facility] 2019-11-24 2019-11-24 Telemedici [facility] 1.2.840.114 [id number] Univers 12:42:21 16:15:48 ne Visit [facility] 350.1.13.10 ity of [place] 4.2.7.2.686 Bernabe as Professio [phone] Ne dicde nal 044 [address] [facility] 2019-11-24 2019-11-24 [facility] [id number] Univers 15:30:00 15:30:00 WONDIFUL ity o f [facility] 2019-11-24 2019-11-24 Transition Jono Henry 1.2.840.114 [id number] Univers 00:00:00 00:00:00 of Care Cielo Mg 350.1.13.10 [place] [phone] [facility] [address] 2019-11-24 2019-11-24 Orders Doctor YANA 1.2.840.114 [id number] Univers 00:00:00 00:00:00 Only Unassigned, THELMA 350.1.13.10 ity of [place] [facility] 4.2.7.2.686 Bernabe as [phone] [facility] [address] 2019-11-21 2019-11-21 Transition Jono Henry 1.2.840.114 [id number] Univers 00:00:00 00:00:00 of Care Cielo Mg 350.1.13.10 [place] [phone] [facility] [address] 2019-11-08 2019-11-20 [facility] Fam Craig 1.2.840.114 [id number] Univers 18:18:00 16:52:00 Encounter Argenis Barnett [place] 350.1.13.1 0 ity of [facility] 4.2.7.2 .686 [place] [phone] [address] 2019-11-08 2019-11-20 Inpatient U LEONARD, [facility] [id number] Univers 18:18:00 16:52:00 AHMED ity [facility] 2019-11-20 2019-11-20 [facility] 1.2.840.114 [id number] Univers 00:00:00 00:00:00 Wondiful A Health 350.1.13.10 ity of [place] 4.2.7.2.686 Bernabe as Professio [phone] [address] 2019-11-19 2019-11-19 [facility] [id number] Univers 14:30:00 14:30:00 WENTONG [facility] [place] [facility] 2019-11-19 2019-11-19 Ref[facility]AD[facility] 1.2.840.114 [id number] Univers 00:00:00 00:00:00 Wondiful A Health 350.1.13.10 ity of [place] 4.2.7.2.686 Bernabe as Professio [phone] [address] 2019-11-17 2019-11-17 Outpatient R [facility] [id number] Univers 08:00:00 08:00:00 SILVERIO ity [facility] 2019-11-14 2019-11-14 Outpatient R [facility] [id number] Univers 09:00:00 09:00:00 ity [facility] 2019-11-10 2019-11-10 Telephone [facility] 1.2.840.114 [id number] Univers 00:00:00 00:00:00 Wondiful A Health 350.1.13.10 ity of [place] 4.2.7.2.686 Bernabe as Professio [phone] [address] 2019-11-08 2019-11-08 Refis[facility]AD[facility] 1.2.840.114 [id number] Univers 00:00:00 00:00:00 Wondiful A Health 350.1.13.10 ity of [place] 4.2.7.2.686 Bernabe as Professio [phone] [place] [address] [address] Office [address] One 2019-11-05 2019-11-05 Hospital [facility] 1.2.840.114 [id number] Univers 07:42:01 23:59:00 Encounter Silverio [facility] 350.1.13.10 it[place] of [place] [phone] [place] [address] [address] ([facility]) 2019-11-05 2019-11-05 Outpatient R KIA [facility] [id number] Univers 00:00:00 00:00:00 SILVERIO ity of [facility] 2019-10-29 2019-10-29 Pre Visit Major [facility] 1.2.840.114 [id number] Univers 00:00:00 00:00:00 Outreach Wondiful A Health 350.1.13.10 ity of [place] 4.2.7.2.686 Bernabe as Professio [phone] [address] Office Building One 2019-10-29 2019-10-29 Pre Visit Major [facility] 1.2.840.114 [id number] Univers 00:00:00 00:00:00 Outreach Wondiful A Health 350.1.13.10 ity of [place] 4.2.7.2.686 Bernabe as Professio [phone] [address] Office Building One 2019-10-28 2019-10-28 Office Major [facility] 1.2.840.114 [id number] Univers 08:55:08 09:43:57 Visit Wondiful A Health 350.1.13.10 ity of [place] 4.2.7.2.686 Bernabe as Professio [phone] [address] Office Building One 2019-10-28 2019-10-28 Outpatient R MAJOR, [facility] [id number] Univers 09:30:00 09:30:00 WONDIFUL ity o f [facility] 2019-10-24 2019-10-24 Emergency Formerly [facility] 1.2.055.578 [id number] Univers 19:34:00 23:51:00 Lubna S [place] 350.1.13.10 ity of [place] 4.2.7.2.[place] [phone] [facility] 084 [place] 2019-10-24 2019-10-24 Emergency X ORI [facility] ERT [id number] Univers 19:34:00 23:51:00 LUBNA ity of [facility] 2019-10-24 2019-10-24 Telephone [facility] 1.2.840.114 [id number] Univers 00:00:00 00:00:00 Wondiful A Health 350.1.13.10 ity of [place] 4.2.7.2.686 Bernabe as Professio [phone] [address] Office Building [facility] 2019-10-24 2019-10-24 Orders Doctor YANA 1.2.840.114 [id number] Univers 00:00:00 00:00:00 Only Unassigned, THELMA 350.1.13.10 ity of [place] [facility] 4.2.7.2.686 Bernabe as [phone] [facility] 009 [place] 2019-10-21 2019-10-21 Telephone Mary Kay Adam 1.2.104.539 [id number] Univers 00:00:00 00:00:00 Silverio [place] 350.1.13.10 it y of Hospital 4.2.7.2.686 Bernabe as [phone] [facility] 039 [place] 2019-10-09 2019-10-09 Telephone GLENNA Adam 1.2.840.114 [id number] Univers 00:00:00 00:00:00 Silverio Y HEALTH 350.1.13.10 i ty of CL[place]ICS [place].2.[place] [phone] [facility] 059 [place] 2019-10-08 2019-10-08 Telephone [facility] 1.2.840.114 [id number] Univers 00:00:00 00:00:00 Wondiful A Health 350.1.13.10 ity of [place] 4.2.7.2.686 Bernabe as Professio [phone] [address] Office [facility] 2019-10-08 2019-10-08 Ely Adam [facility] 1.2.609.975 [id number] Univers 00:00:00 00:00:00 Silverio [place] 350.1.13.10 i ty of [place] 4.2.7.2.[place] [phone] [facility] 059 [facility] 2019-10-01 2019-10-01 Orders Doctor YANA 1.2.840.114 [id number] Univers 00:00:00 00:00:00 Only Unassigned, THELMA 350.1.13.10 ity of [place] [facility] 4.2.7.2.686 Bernabe as [phone] [address] 2019-09-23 2019-09-23 Telephone [facility] 1.2.975.921 [id number] Univers 00:00:00 00:00:00 Silverio [place] 350.1.13.10 i ty of [place] 4.2.7.2.[place] [phone] [facility] 059 [facility] 2019-09-18 2019-09-18 Telephone [facility] 1.2.840.114 [id number] Univers 00:00:00 00:00:00 Wondiful A [place] 350.1.13.10 ity of [place] 4.2.7.2.[place] [phone] [facility] 044 [facility] 2019-09-17 2019-09-17 [facility] 1.2.864.143 [id number] Univers 00:00:00 00:00:00 Silverio [place] 350.1.13.10 i ty of [place] 4.2.7.2.[place] [phone] [place] 171809 [facility] 2019-09-16 2019-09-16 Office [facility] 1.2.840.114 [id number] Univers 10:18:05 12:06:59 Visit Silverio [place] 350.1.13.10 i ty of [place] 4.2.7.2.[place] [phone] [place] 171809 [facility] 2019-09-16 2019-09-16 Outpatient [facility] [id number] Univers 10:40:00 10:40:00 SILVERIO ity of [facility] 2019-09-16 2019-09-16 Telephone [facility] 1.2.661.076 [id number] Univers 00:00:00 00:00:00 Sriram [place] 350.1.13.10 ity of [place] 4.2.7.2.[place] [phone] Ne dical nal 059 [facility] 2019-09-15 2019-09-15 Laboratory Pc, Adc Echo Room 1 - [facility] 1 .2.840.114 [id number] Univers 09:42:44 11:10:38 Only Kumar Sriram Plaomo 350.1.13.10 ity of [place] 4.2.7.2.[place] [phone] Ne dicde nal [address] [place] [address] 2019-09-15 2019-09-15 Outpatient R [facility] [id number] Univers 10:00:00 10:00:00 ity of [facility] 2019-09-10 2019-09-10 Telephone [facility] 1.2.840.114 [id number] Univers 00:00:00 00:00:00 Wondiful A Dewey 350.1.13.10 ity of [place] 4.2.7.2.[place] [phone] Ne dical nal 044 [facility] 2019-09-08 2019-09-08 Office [facility] 1.2.840.114 [id number] Univers 13:10:22 13:44:08 Visit Sriram Palomo 350.1.13.10 ity of [place] 4.2.7.2.[place] [phone] Ne dical nal 059 [facility] 2019-09-08 2019-09-08 Outpatient R [facility] [id number] Univers 13:20:00 13:20:00 SRIRAM fergusony o f [facility] 2019-08-25 2019-08-25 Refill [facility] 1.2.840.114 [id number] Univers 00:00:00 00:00:00 Sriram Health 350.1.13.10 i ty of [place] 4.2.7.2.686 Bernabe as Professio [phone] Ne dical nal 044 [place] Office [facility] One 2019-08-18 2019-08-18 Telephone Kumar, [facility] 1.2.274.644 [id number] Univers 00:00:00 00:00:00 Sriram Palomo 350.1.13.10 ity of [place] 4.2.7.2.[place] [phone] [facility] nal 059 [facility] 2019-08-15 2019-08-15 Nurse Visit, [facility] Nurse [facility] 1.2.840.1 14 [id number] Univers 09:12:28 21:57:47 Visit Dago Gross 350.1.13. 10 ity of [place] 4.2.7.2.[place] [phone] [facility] nal 059 [facility] 2019-08-15 2019-08-15 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 2, [facility] Lab [facility] 1.2.840.114 [id number] Univers 10:09:35 10:24:35 Visit Dago Gross 350.1.13. 10 ity of [place] 4.2.7.2.[place] Profess[place] [phone] [facility] 353 [facility] 2019-08-15 2019-08-15 Outpatient R [facility] [id number] Univers 09:30:00 09:30:00 ity of [facility] 2019-08-13 2019-08-13 Office [facility] 1.2.840.114 [id number] Univers 16:05:34 16:57:20 Visit Alexey Palomo 350.1.13.10 i ty of [place] 4.2.7.2.[place] [phone] [facility] nal 220 [facility] 2019-08-13 2019-08-13 Outpatient R TIN [facility] [id number] Univers 16:30:00 16:30:00 GALILEAONG ity of [facility] 2019-08-13 2019-08-13 Orders Doctor MILLAN 1.2.840.114 [id number] Univers 00:00:00 00:00:00 Only Unassigned, THELMA 350.1.13.10 ity of [place] [facility] 4.2.7.2.686 Bernabe as [phone] [address] 2019-08-13 2019-08-13 Refill [facility]AD[facility] 1.2.840.114 [id number] Univers 00:00:00 00:00:00 Sriram Palomo 350.1.13.10 ity of [place] 4.2.7.2.[place] [phone] [address] 2019-08-07 2019-08-07 Refill [facility]AD[facility] 1.2.840.114 [id number] Univers 00:00:00 00:00:00 Wondiful A Health 350.1.13.10 ity of [place] 4.2.7.2.686 Bernabe as Professio [phone] [address] Office [facility] 2019-08-04 2019-08-04 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 Pc, Adc Vascular Room 1 - [facility] 1.2.840.114 [id number] Univers 10:43:00 11:05:18 Visit Sriram Heath 350.1.13.10 ity of [place] 4.2.7.2.[place] [phone] [address] 2019-08-04 2019-08-04 Outpatient R [facility] [id number] Univers 11:00:00 11:00:00 ity of [facility] 2019-08-04 2019-08-04 Telephone [facility]AD[facility] 1.2.142.921 [id number] Univers 00:00:00 00:00:00 Dimitrizechariah Palomo 350.1.13.10 ity of [place] 4.2.7.2.[place] [phone] [address] 2019-08-03 2019-08-03 Refisra GonsalvesADVANCED [facility] 1.2.840.114 [id number] Univers 00:00:00 00:00:00 Wondiful A Health 350.1.13.10 ity of [place] 4.2.7.2.686 Bernabe as Professio [phone] [address] Office [facility] 2019-07-30 2019-07-30 Office KumarADV[facility] 1.2.840.114 [id number] Univers 13:54:46 14:40:55 Visit Sriram Palomo 350.1.13.10 ity of [place] 4.2.7.2.[place] [phone] [facility] 059 [facility] 2019-07-30 2019-07-30 Outpatient R [facility] [id number] Univers 14:20:00 14:20:00 SRIRAM ity o f [facility] 2019-07-30 2019-07-30 Orders Doctor YANA 1.2.840.114 [id number] Univers 00:00:00 00:00:00 Only Unassigned, THELMA 350.1.13.10 ity of [place] [facility] 4.2.7.2.686 Bernabe as [phone] [address] 2019-07-17 2019-07-17 Orders Doctor YANA 1.2.840.114 [id number] Univers 00:00:00 00:00:00 Only Unassigned, THELMA 350.1.13.10 ity of [place] [facility] 4.2.7.2.686 Bernabe as [phone] [address] 2019-07-16 2019-07-16 Telephone Mc[facility]nADVANC[facility] 1.2.840.114 [id number] Univers 00:00:00 00:00:00 Wondiful A Health 350.1.13.10 ity of [place] 4.2.7.2.686 Bernabe as Professio [phone] [facility] 044 [place] Office Building One 2019-07-01 2019-07-01 Telephone [facility] 1.2.494.153 [id number] Univers 00:00:00 00:00:00 Sriram Palomo 350.1.13.10 ity of [place] 4.2.7.2.[place] [phone] Ne dical nal 059 [facility] 2019-06-30 2019-06-30 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 [place], Adc Lab Main [facility] 1.2.8 40.114 [id number] Univers 07:52:57 08:07:57 Visit Kumar, Qiangjun [place] 350.1.13.10 ity of [place] 4.2.7.2.[place] [phone] [facility] 353 [facility] 2019-06-30 2019-06-30 Outpatient R KUMAR, [facility] [id number] Univers 08:00:00 08:00:00 SRIRAM ity o f [facility] 2019-06-25 2019-06-25 Outpatient R KUMAR, [facility] [id number] Univers 09:40:00 09:40:00 QIACHAIM ity o f [facility] 2019-06-25 2019-06-25 Telemedici KumarADVANCED [facility] 1.2.840.114 [id number] Univers 08:37:50 08:57:50 ne Visit Guillelisazechariah [place] 350.1.13.10 ity of [place] 4.2.7.2.[place] Profess[place] [phone] [facility] 059 [facility] 2019-05-28 2019-05-28 [facility]vesADV[facility] 1.2.840.114 [id number] Univers 00:00:00 00:00:00 Wondiful A Health 350.1.13.10 ity of [place] 4.2.7.2.686 Bernabe as Professio [phone] [facility] 044 [facility] 2019-05-25 2019-05-25 [facility] MajorADV[facility] 1.2.840.114 [id number] Univers 00:00:00 00:00:00 Wondiful A Health 350.1.13.10 ity of [place] 4.2.7.2.686 Bernabe as Professio [phone] [facility] 044 [facility] 2019-05-21 2019-05-21 Outpatient R ALEXUS RAMOS [facility] [id number] Univers 10:00:00 10:00:00 ALEXUS RAMOS ity [facility] 2019-05-20 2019-05-20 Telemedici KumarADVANC[facility] 1.2.840.114 [id number] Univers 13:50:59 14:10:59 ne Visit [facility]alt[facility] 350.1.13.10 ity of [place] 4.2.7.2.[place] [phone] Ne dical nal 059 [facility] 2019-05-20 2019-05-20 Outpatient R [facility] [id number] Univers 13:40:00 13:40:00 QIANGZECHARIAH ity o f [facility] 2019-05-20 2019-05-20 Telephone [facility] 1.2.840.114 [id number] Univers 00:00:00 00:00:00 Wondiful A Health 350.1.13.10 ity of [place] 4.2.7.2.686 Bernabe as Professio [phone] Ne dical nal 044 [place] Office [facility] 2019-05-13 2019-05-13 Telephone [facility]AD[facility] 1.2.715.456 [id number] Univers 00:00:00 00:00:00 Qiangjun [place] 350.1.13.10 ity of [place] 4.2.7.2.[place] [phone] Ne dical nal 059 [facility] 2019-05-09 2019-05-09 Refill [facility] 1.2.840.114 [id number] Univers 00:00:00 00:00:00 Wondiful A Health 350.1.13.10 ity of [place] 4.2.7.2.686 Bernabe as Professio [phone] Ne dical nal 044 [facility] 2019-05-02 2019-05-02 Telephone [facility] 1.2.840.114 [id number] Univers 00:00:00 00:00:00 Wondiful A Health 350.1.13.10 ity of [place] 4.2.7.2.686 Bernabe as Professio [phone] Ne dical nal 044 [facility] 2019-05-02 2019-05-02 Telephone [facility] 1.2.778.019 [id number] Univers 00:00:00 00:00:00 Wentong [place] 350.1.13.10 i ty of [place] 4.2.7.2.[place] [phone] Ne dical nal 220 [facility] 2019-04-30 2019-04-30 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 [place], Adc Lab Main [facility] 1.2.8 40.114 [id number] Univers 09:32:20 09:47:20 Visit Sriram Heath [place] 350.1.13.10 ity of [place] 4.2.7.2.[place] [phone] Ne dical nal 353 [facility] 2019-04-30 2019-04-30 Outpatient R [facility] [id number] Univers 09:45:00 09:45:00 SRIRAM fergusony o f [facility] 2019-04-30 2019-04-30 Telephone Mc[facility]nADV[facility] 1.2.840.114 [id number] Univers 00:00:00 00:00:00 Wondiful A Complix 350.1.13.10 ity of [place] 4.2.7.2.686 Bernabe as Professio [phone] Ne dical nal 044 [facility] 2019-04-28 2019-04-28 Office KumarADV[facility] 1.2.840.114 [id number] Univers 13:21:45 14:34:07 Visit Sriram Palomo 350.1.13.10 ity of [place] 4.2.7.2.[place] [phone] Ne dical nal 059 [facility] 2019-04-28 2019-04-28 Outpatient R [facility] [id number] Univers 13:20:00 13:20:00 SRIRAM ity o f [facility] 2019-04-09 2019-04-09 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 [place], Adc Lab Main [facility] 1.2.8 40.114 [id number] Univers 16:15:01 16:30:01 Visit Alexey Castle 350.1.13.10 ity of [place] 4.2.7.2.[place] [phone] Ne dical nal 353 [facility] 2019-04-09 2019-04-09 Office [facility]AD[facility] 1.2.840.114 [id number] Univers 15:08:31 15:58:05 Visit Alexey [place] 350.1.13.10 i ty of [place] 4.2.7.2.[place] [phone] Me dical nal 220 [facility] 2019-04-09 2019-04-09 Orders Doctor YANA 1.2.840.114 [id number] Univers 00:00:00 00:00:00 Only Unassigned, THELMA 350.1.13.10 ity of [place] [facility] 4.2.7.2.686 Bernabe as [phone] [address] 2019-03-14 2019-03-30 Nurse Visit, [facility] Nurse [facility] 1.2.840.1 14 [id number] Univers 08:39:08 18:06:53 Visit Dago Gross 350.1.13. 10 ity of [place] 4.2.7.2.[place] [phone] [facility] 059 [facility] 2019-03-28 2019-03-28 Telephone Major [facility] 1.2.840.114 [id number] Univers 00:00:00 00:00:00 Wondiful A Health 350.1.13.10 ity of [place] 4.2.7.2.686 Bernabe as Professio [phone] [facility] 044 [facility] 2019-03-24 2019-03-24 Telephone Major [facility] 1.2.840.114 [id number] Univers 00:00:00 00:00:00 Wondiful A Health 350.1.13.10 ity of [place] 4.2.7.2.686 Bernabe as Professio [phone] [facility] 044 [facility] 2019-03-14 2019-03-14 Outpatient R GINNY [facility] [id number] Univers 09:15:00 09:37:46 SENDIL ity of [facility] 2019-03-14 2019-03-14 Orders Doctor YANA 1.2.840.114 [id number] Univers 00:00:00 00:00:00 Only Unassigned, THELMA 350.1.13.10 ity of [place] [facility] 4.2.7.2.686 Bernabe as [phone] [address] 2019-03-06 2019-03-06 Telephone [facility]AD[facility] 1.2.840.114 [id number] Univers 00:00:00 00:00:00 Wondiful A Health 350.1.13.10 ity of [place] 4.2.7.2.686 Bernabe as Professio [phone] [place] [address] [address] Office Building One 2019-01-27 2019-01-27 Outpatient [facility] [id number] Univers 14:20:00 14:44:45 SRIRAM fergusony o f [facility] 2019-01-19 2019-01-19 Emergency X DRESUGEYADVANCED [facility]ARE [facility] ERT [id number] Univers 10:06:29 15:10:00 EVAN alvino [facility] 2019-01-06 2019-01-06 Outpatient [facility] [id number] Univers 15:00:00 15:00:00 WONRAKELPASTOR de oliveira o f [facility] 2018-12-11 2018-12-11 Outpatient [facility] [id number] Univers 08:45:00 08:45:00 EKATERINA martykelsie [facility] 2018-11-01 2018-11-01 Telephone WillianADVANC[facility] 1.2.840.114 [id number] Univers 00:00:00 00:00:00 Wissa HEALTH 350.1.13.10 it [facility] 4.2.7.2.686 [facility] [phone] [facility] Primary [facility] 2018-10-31 2018-10-31 Telephone [facility]AD[facility] 1.2.840.114 [id number] Univers 00:00:00 00:00:00 Wondiful A Health 350.1.13.10 ity of [place] 4.2.7.2.686 Bernabe as Professio [phone] [address] Office Building One 2018-10-30 2018-10-30 Telephone SullivanADVANC[facility] 1.2.042.945 [id number] Univers 00:00:00 00:00:00 Madeleinephilip Cerdaen HEALTH 350.1.13.10 ity of [place] 4.2.7.2.686 [facility] [phone] [facility] Primary & 059 [facility] 2018-10-30 2018-10-30 Telephone [facility]AD[facility] 1.2.840.114 [id number] Univers 00:00:00 00:00:00 Wondiful A Health 350.1.13.10 ity of [place] 4.2.7.2.686 Bernabe as Professio [phone] [facility] [address] [place] Office Building One 2018-10-29 2018-10-29 Office Cookie, [facility] 1.2.840.114 [id number] [facility] 13:11:56 13:52:23 Visit Emily Health 350.1.13.10 i ty of [place] 4.2.7.2.686 Bernabe as Professio [phone] [facility] [address] [place] Office Building One 2018-10-28 2018-10-29 Office Salvador, Luís Heart Failure Cardio [facility] 1.2.840.114 [id number] [facility] 15:47:43 12:03:16 Visit Edgar Cortés [place] 350.1 .13.10 ity of [place].2.[place].2.[place] Profess[place] [phone] [facility] 059 [facility] 2018-10-28 2018-10-28 Hospital Nate [facility] 1.2.840.114 [id number] [facility] 16:46:06 23:59:00 Encounter Madeleine [place] 350.1.13.10 ity of [place]2.7.2.686 [place] [phone] [facility] [address] 2018-10-28 2018-10-28 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 1, Adc Lab [facility] 1.2.840.114 [id number] [facility] 16:41:14 16:56:14 Visit Madeleine [place] 350.1.13.10 ity of [place].7.2.[place] [phone] [facility] [address] 2018-10-28 2018-10-28 Orders Doctor YANA 1.2.840.114 [id number] Univers 00:00:00 00:00:00 Only Unassigned, THELMA 350.1.13.10 ity of [place] [facility] 4.2.7.2.686 Bernabe as [phone] [facility] [address] 2018-10-24 2018-10-24 Refill Willian, [facility] 1.2.840.114 [id number] Univers 00:00:00 00:00:00 [place] HEALTH 350.1.13.10 it y of [place] 4[place]2.7.2.686 [place] [phone] [facility] Primary & [facility] Branch Specialty Care 2018-10-14 2018-10-14 Refill Freddy, [facility] 1.2.840.114 [id number] Univers 00:00:00 00:00:00 Min [place] 350.1.13.10 i ty of [place] 4[place]2.7.2.[place] Profess[place] [phone] [facility] [address] 2018-10-01 2018-10-01 Orders Doctor YANA 1.2.840.114 [id number] Univers 00:00:00 00:00:00 Only Unassigned, THELMA 350.1.13.10 ity of [place] [facility] 4.2.7.2.686 [place] as [phone] [facility] [address] 2018-09-26 2018-09-26 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 Lab, [facility] Fam Pob I [facility] 1.2. 840.114 [id number] Univers 13:45:07 15:25:16 Visit Josiane Gonsalvespastor A Health 350.1.13.1 0 ity of [place] 4.2.7.2.686 [place]abe as Professio [phone] [facility] [address] 2018-09-26 2018-09-26 Telephone Fac, [facility] 1.2.840.114 [id number] Univers 00:00:00 00:00:00 Heart HEALTH 350.1.13.10 it y of Failure [place] 4.2.7.2.686 [place] [phone] [facility] Primary & [address] [place] [address] Specialty Care 2018-09-10 2018-09-10 Office Major [facility] [id number] [employer] 12:36:16 13:37:40 Visit [facility] 350.1.13.10 ity of [place] [id number] Bernabe as Professio [phone] Ne dical nal [address] 2018-09-02 2018-09-02 Orders Doctor YANA [id number] [employer] 00:00:00 00:00:00 Only Unassigned, THELMA 350.1.13.10 [facility] 4.2.7.2.686 Bernabe as [phone] [address] Results Test Description Test Time Test Comments Results Result Comments Source POCT GLUCOSE (AUTOMATED) 2022-02-19 18:34:13 Test Item Value Reference Range Interpretation Comme nts POCT GLU (test code = 4389039088) 354 mg/dL 70-110 H Lab Interpretation (test code = 24536-9) [facility]normal [facility] 14:51:34 Test Item Value Reference Range Interpretation Comments POCT GLU (test code = 1633558360) 158 mg/dL 70-110 H Lab Interpretation (test code = Abnormal 92172-7) [facility]22-[facility]-19 07:09:11 Test Item Value Reference Range Interpretation Comments POCT GLU (test code = 1890958856) 109 mg/dL 70-110 Lab Interpretation (test code = Normal 70682-9) [facility] GLUCOSE (AUTOMATED)2022-02-19 06:15:00 Test Item Value Reference Range Interpretation Comments POCT GLU (test code = 8531661786) 56 mg/dL 70-110 L Lab Interpretation (test code = Abnormal 48831-1) [facility] GLUCOSE (AUTOMATED)2022-02-19 03:41:03 Test Item Value Reference Range Interpretation Comments POCT GLU (test code = 9017388755) 197 mg/dL 70-110 H Lab Interpretation (test code = Abnormal 01305-5) [facility] GLUCOSE (AUTOMATED)2022-02-18 23:17:16 Test Item Value Reference Range Interpretation Comments POCT GLU (test code = 1554853164) 240 mg/dL 70-110 H Lab Interpretation (test code = Abnormal 00177-2) [facility] GLUCOSE (AUTOMATED)2022-02-18 18:24:23 Test Item Value Reference Range Interpretation Comments POCT GLU (test code = 7548891768) 274 mg/dL 70-110 H Lab Interpretation (test code = Abnormal 93120-4) [facility]18 18:24:18 Test Item Value Reference Range Interpretation Comments POCT GLU (test code = 8472665702) 92 mg/dL 70-110 Lab Interpretation (test code = Normal 32690-3) [facility] (Total Cholesterol, Triglycerides, HDL) - [id number] 12:27:34 Test Item Value Reference Range Interpretation Comments CHOL (test code = 146 mg/dL 120-200 1293468046) HDL (test code = 54 mg/dL See_Comment [Automated message] 9509151742) The system [employer] generated this result transmit luis miguel reference range : >=50. The refer ence range was not u sed to interpret th is result as normal/abnormal . HDLC RATIO (test code = See_Comment [Au tomated message] 5028976548) The system [employer] generated this result transmit luis miguel reference range : <=4.5. The refe rence range was not u sed to interpret th is result as normal/abnormal . TRIG (test code = 113 mg/dL 30-170 4323914827) LDL CHOL (test code = 69 mg/dL See_Comment [Auto mated message] 23497-1) The system [employer] generated this result transmit luis miguel reference range : <=160. The refe rence range was not u sed to interpret th is result as normal/abnormal . VLDL (test code = 23 mg/dL 5-60 8403941026) Lab Interpretation (test Normal code = 49617-3) [facility] [id number] 12:27:34 Test Item Value Reference Range Interpretation Comments NT-proBNP (test code 19465 pg/mL See_Comment H [Autom ated = 2822991329) message] The system which generated this result transmitted reference range : <=450. The reference range was not used to interpret this result as normal/abnormal . SEN (test code = SEN) Biotin has been reported to cause a negative bias, interpret results relative to patient's use of biotin. Lab Interpretation Abnormal (test code = 82277-5) [facility] (NA, K, CL, CO2, GLUCOSE, BUN, CREATININE, CA)2022-02-18 12:27:14 Test Item Value Reference Range Interpretation Comments NA (test code = 137 mmol/L 135-145 9722357495) K (test code = 4.0 mmol/L 3.5-5.0 7890851735) CL (test code = 104 mmol/L 98-108 5359822585) CO2 TOTAL (test code = 25 mmol/L 23-31 8584598281) AGAP (test code = 2-16 1530382326) BUN (test code = 62 mg/dL 7-23 H 1134988469) GLUCOSE (test code = 90 mg/dL 70-110 0673748927) CREATININE (test code = 2.02 mg/dL 0.50-1.04 H 6954826625) CALCIUM (test code = 8.3 mg/dL 8.6-10.6 L 3672422406) eGFR (test code = mL/min/1.73m2 2866308426) SEN (test code = SEN) Association of [...] tests). Lab Interpretation Abnormal (test code = 53660-4) [facility] WITH [id number] 11:30:43 Test Item Value Reference Range Interpretation [...] RDW-SD (test code = 46.4 fL 39.0-49.9 63605-2) RDW-CV (test code = 13.2 % 12.0-15.5 788-0) PLT (test code = See_Comment [Automated 777-3) message] The sy stem which generated this result transmitted reference range : 166 - 358 10*3/ ?L. The reference r beltran was not used to interpret this result as normal/abnormal . MPV (test code = 13.0 fL 9.5-12.9 H 88931-2) NRBC/100 WBC (test See_Comment [Automat ed code = 8879731920) message] The system which generated this result transmitted reference range : 0.0 - 10.0 /100 WBCs. The refer ence range was not u sed to interpret th is result as normal/abnormal . NRBC x10^3 (test code See_Comment [Auto mated = 6358793196) message] The s ystem which generated this result transmitted reference range : 10*3/?L. The reference range was not used to interpret this result as normal/abnormal . GRAN MAT (NEUT) % 58.4 % (test code = 770-8) IMM GRAN % (test code 0.30 % = 5168262675) LYMPH % (test code = 27.5 % 736-9) MONO % (test code = 9.3 % 5905-5) EOS % (test code = 4.2 % 713-8) BASO % (test code = 0.3 % 706-2) GRAN MAT x10^3(ANC) 3.71 10*3/uL 1.88-7.09 (test code = 1124606066) IMM GRAN x10^3 (test 0.00-0.06 code = 7664120848) LYMPH x10^3 (test code 1.75 10*3/uL 1.32-3.29 = 731-0) MONO x10^3 (test code 0.59 10*3/uL 0.33-0.92 = 742-7) EOS x10^3 (test code = 0.27 10*3/uL 0.03-0.39 711-2) BASO x10^3 (test code 0.01-0.07 = 704-7) Lab Interpretation Abnormal (test code = 66162-6) [facility] GLUCOSE (AUTOMATED)2022-02-18 02:39:08 Test Item Value Reference Range Interpretation Comments POCT GLU (test code = 4614514835) 196 mg/dL 70-110 H Lab Interpretation (test code = Abnormal 39848-2) [facility] GLUCOSE (AUTOMATED)2022-02-17 23:16:54 Test Item Value Reference Range Interpretation Comments POCT GLU (test code = 9572684819) 140 mg/dL 70-110 H Lab Interpretation (test code = Abnormal 14822-1) [facility]2022-02-17 19:44:53 Test Item Value Reference Range Interpretation Comments Height (test code = in 5870325921) Weight (test code = lbs 5522852014) Systolic BP (test code = mmHg 2672559828) Diastolic BP (test code mmHg = 4428537577) Heart Rate (test code = bpm 4126552286) BSA (test code = 1.81 m2 5731246772) Ao root diam (test code 3.30 cm = 9067445619) Aortic root (test code = 3.3 cm 8061377850) Ao root annulus (test 3.3 cm code = 1293376430) LVOT diameter (test code 1.89 cm = 4248093205) LVOT area (test code = 2.80 cm2 3812703987) LAV(MOD-sp4) (test code 52.90 mL = 9672181906) E wave decelartion time 0.17 s (test code = 1679098834) MV stenosis pressure 1/2 51.3 ms time (test code = 1548416128) MV Peak E Mily (test code 95.2 cm/s = 9410489139) MV Peak A Mily (test code 61.8 cm/s = 4198315689) E/A ratio (test code = ratio 8062909293) MV Prop V (test code = 23.30 cm/s 2663821045) MV E/e' septal (test 7.8 cm/s code = 7706800152) TR Peak Mily (test code = 310.8 cm/s 5784369475) Triscuspid Valve mmHg Regurgitation Peak Gradient (test code = 3350759888) Tapse (test code = 1.99 cm 8184705795) LVOT stroke volume (test 40.40 cm3 code = 7802960070) LVOT peak mily (test code 67.8 cm/s = 2582043505) LVOT mn grad (test code mmHg = 7596489424) AV LVOT peak gradient mmHg (test code = 8364204491) LVOT peak VTI (test code 14.4 cm = 6442787740) LV V1 mean (test code = 45.30 cm/s 6652023678) MR max PG (test code = 65.40 mm[Hg] 9652735770) MR max mily (test code = 404.30 cm/s 6242851438) Mr max mily (test code = 404.3 m/s 6172090528) LVIDD (test code = 6.30 cm 2602138008) Left Ventricular End 202.4 mL Diastolic Volume by Teichholz Method (test code = 3175276) IVS (test code = 0.94 cm 1010055385) Interventricular Septum 0.94 cm Diastolic Thickness by 2D (test code = 4198718) LVPWD (test code = 0.94 cm 4948707550) PW (test code = 0.94 cm 0.6-1.8 4678275666) EF(Teich) (test code = 19.10 % 5989443578) LVIDS (test code = 5.80 cm 2616867733) Left Ventricular End 163.8 mL Systolic Volume by Teichholz Method (test code = 7643062) FS (test code = 9 % 3037173838) EF - 2D (test code = 19.10 % 18222577) LA size (test code = 3.5 cm 8829872969) Radiology Study observation (narrative) (test code = 28226-2) SEN (test code = SEN) Table formatting [...] mL of Lumason ultrasound enhancing agent used. [facility] GLUCOSE (AUTOMATED)2022-02-17 18:19:03 Test Item Value Reference Range Interpretation Comments POCT GLU (test code = 4533914879) 160 mg/dL 70-110 H Lab Interpretation (test code = Abnormal 26241-1) [facility] GLUCOSE (AUTOMATED)2022-02-17 14:06:55 Test Item Value Reference Range Interpretation Comments POCT GLU (test code = 3836122726) 101 mg/dL 70-110 Lab Interpretation (test code = Normal 08055-5) [facility] GLUCOSE (AUTOMATED)2022-02-17 03:58:48 Test Item Value Reference Range Interpretation Comments POCT GLU (test code = 3683607228) 278 mg/dL 70-110 H Lab Interpretation (test code = Abnormal 53680-9) [facility] GLUCOSE (AUTOMATED)2022-02-17 03:21:46 Test Item Value Reference Range Interpretation Comments POCT GLU (test code = 0556226251) 279 mg/dL 70-110 H Lab Interpretation (test code = Abnormal 83194-5) [facility] (A1C)2022-02-17 01:58:04 Test Item Value Reference Range Interpretation Comments HGB A1C (test code = 10.0 % 4.0-5.7 H 4548-4) SEN (test code = SEN) Reference RangesNormal: <5.7%Prediabetes: 5.7 - 6.4%Diabetes: > 6.5% Lab Interpretation (test Abnormal code = 35602-9) [facility] Lake[facility] [id number] 17:30:57 Test Item Value Reference Interpretation Comments Range TROPONIN I (test 0.028 ng/mL See_Comment [Automated code = 0229720290) message] The system which generated this result [...] biotin. Lab Interpretation Normal (test code = 05861-5) [facility] [id number] 17:27:54 Test Item Value Reference Range Interpretation Comments NT-proBNP (test code 99649 pg/mL See_Comment H [Autom ated = 1317413375) message] The system which generated this result transmitted reference range : <=450. The reference range was not used to interpret this result as normal/abnormal . SEN (test code = SEN) Biotin has been reported to cause a negative bias, interpret results relative to patient's use of biotin. Lab Interpretation Abnormal (test code = 70815-4) [facility]OL[facility] (NA, K, CL, CO2, GLUCOSE, BUN, CREATININE, CA)2022-02-16 17:19:15 Test Item Value Reference Range Interpretation Comments NA (test code = 135 mmol/L 135-145 4419730840) K (test code = 4.7 mmol/L 3.5-5.0 6511470142) CL (test code = 104 mmol/L 98-108 8321972700) CO2 TOTAL (test code = 23 mmol/L 23-31 8704384755) AGAP (test code = 2-16 5198895964) BUN (test code = 58 mg/dL 7-23 H 9892450212) GLUCOSE (test code = 260 mg/dL 70-110 H 3447145621) CREATININE (test code = 1.78 mg/dL 0.50-1.04 H 4541438620) CALCIUM (test code = 8.2 mg/dL 8.6-10.6 L 8122781249) eGFR (test code = mL/min/1.73m2 5526484477) SEN (test code = SEN) Association of [...] tests). Lab Interpretation Abnormal (test code = 74015-7) [facility] FUN[facility] PAN[facility] (13939) (ALB,T.PRO,BILI T,BU/BC,ALT,AST,ALK PHOS)2022-02-16 17:19:15 Test Item Value Reference Range Interpretation Comments TOTAL BILI (test code = 8150391024) 0.4 mg/dL 0.1-1.1 BILI UNCON (test code = 1721997124) 0.3 mg/dL 0.1-1.1 BILI CONJ (test code = 4685739120) 0.0 mg/dL 0.0-0.3 T PROTEIN (test code = 9418506180) 6.8 g/dL 6.3-8.2 ALBUMIN (test code = 4495518801) 3.8 g/dL 3.5-5.0 ALK PHOS (test code = 2226031519) 146 U/L 34-122 H ALTv (test code = 1742-6) 29 U/L 5-35 AST(SGOT) (test code = 9943944092) 28 U/L 13-40 Lab Interpretation (test code = Abnormal 03354-0) [facility]2022-12-29 17:19:15 Test Item Value Reference Range Interpretation Comments LIPASE (test code = 3567566469) 46 U/L 0-220 Lab Interpretation (test code = Normal 44636-8) [facility] WITH [id number] 17:12:53 Test Item Value Reference Range Interpretation [...] RDW-SD (test code = 47.8 fL 39.0-49.9 71865-5) RDW-CV (test code = 13.5 % 12.0-15.5 788-0) PLT (test code = See_Comment [Automated 777-3) message] The sy stem which generated this result transmitted reference range : 166 - 358 10*3/ ?L. The reference r beltran was not used to interpret this result as normal/abnormal . MPV (test code = 12.9 fL 9.5-12.9 78182-3) NRBC/100 WBC (test See_Comment [Automat ed code = 2846774108) message] The system which generated this result transmitted reference range : 0.0 - 10.0 /100 WBCs. The refer ence range was not u sed to interpret th is result as normal/abnormal . NRBC x10^3 (test code See_Comment [Auto mated = 9038828731) message] The s ystem which generated this result transmitted reference range : 10*3/?L. The reference range was not used to interpret this result as normal/abnormal . GRAN MAT (NEUT) % 75.4 % (test code = 770-8) IMM GRAN % (test code 0.20 % = 1560462268) LYMPH % (test code = 14.9 % 736-9) MONO % (test code = 7.7 % 5905-5) EOS % (test code = 1.6 % 713-8) BASO % (test code = 0.2 % 706-2) GRAN MAT x10^3(ANC) 6.77 10*3/uL 1.88-7.09 (test code = 3338721333) IMM GRAN x10^3 (test 0.00-0.06 code = 4553490204) LYMPH x10^3 (test code 1.34 10*3/uL 1.32-3.29 = 731-0) MONO x10^3 (test code 0.69 10*3/uL 0.33-0.92 = 742-7) EOS x10^3 (test code = 0.14 10*3/uL 0.03-0.39 711-2) BASO x10^3 (test code 0.01-0.07 = 704-7) Lab Interpretation Abnormal (test code = 73323-5) [facility] HEMOGLOBIN A1C [id number] 15:15:00 Test Item Value Reference Range Interpretation Comments POCT HBA1C (test code = 4548-4) 7.6 % 4-6 A Lab Interpretation (test code = Abnormal 13226-2) [facility] HEMOGLOBIN A1C [id number] 15:15:00 Test Item Value Reference Range Interpretation Comments POCT HBA1C (test code = 4548-4) 7.6 % 4-6 A Lab Interpretation (test code = Abnormal 30410-6) [facility]
[2022-07-04 08:33] LABS: Absolute Lymphocytes (CBC) 1.5 K/uL (0.7-4.9); Hematocrit 28.5 % (36.0-45.0); Lymphocytes % 22.8 % (15.3-44.8); MCV 94.1 fL (80-100); MPV 9.6 fL (7.6-11.3); RBC Red Blood Cell Count 3.03 M/uL (3.86-4.86)
[2022-07-04 08:39] LABS: Protime INR 1.08
--- NOTE | 2022-07-04 08:40 | RAD REPORT ---
EXAM DESCRIPTION: RADChest Single View07/04/2022 8:10 am CLINICAL HISTORY: DYSPNEA COMPARISON: Chest Single View dated 06/24/2022; Chest Single View dated 05/22/2022; Chest Single View da luis miguel 05/17/2022; Chest Single View dated 05/09/2022 TECHNIQUE: Portable AP view of the chest. FINDINGS: Partial improvement of central and basal predominant interstitial opacities. No new consol idation. Left chest wall pacer/ AICD in place. No pneumothorax or effusion. Stable cardiomegaly. Medi astinal contours are unremarkable. IMPRESSION: Partial improvement of central and basal predominant interstitial opacity.
[2022-07-04 08:53] LABS: ALT/SGPT 28 U/L (13-56); AST/SGOT 21 U/L (15-37); Alkaline Phosphatase 115 U/L (45-117); BUN Blood Urea Nitrogen 73 mg/dL (7-18); Bicarbonate 24 mEq/L (21-32); Bilirubin Total 0.2 mg/dL (0.2-1.0); Glomerular Filtration Rate 28 ml/min (=/>90); Glucose Level 276 mg/dL (74-106); NT PRO-BNP 7175 pg/mL (<450); Potassium 3.9 mEq/L (3.5-5.1); Protein, Total 6.9 g/dL (6.4-8.2); Sodium Level 138 mEq/L (136-145); Troponin High Sensitivity 25.6 pg/mL (<58.9)
[2022-07-04 09:01] LABS: Bilirubin Direct < 0.1 mg/dL (0-0.2); Bilirubin Indirect, Calculated ND mg/dL (0.2-0.8)
--- NOTE | 2022-07-04 09:28 | EDPHYS ---
Physician Documentation [facility] Name: Teena Simpson Age: 77 yrs Sex: Female : 1945 Arrival Date: 07/04/2022 Time: 07:14 Bed 7 Private MD: ED Physician David Fields HPI: 07/04 07:46 This 77 yrs old Female presents to ER via Ambulatory with complaints of rn Shortness Of Breath. 07:46 The patient has shortness of breath at rest, with light activity. Onset: The rn symptoms/episode began/occurred 3 day(s) ago. Duration: The symptoms are intermittent. The patient's shortness of breath is aggravated by exertion, light activity, supine position, walking. Associated signs and symptoms: Pertinent positives: non-productive cough, Pertinent negatives: fever, hemoptysis, loss of consciousness. Severity of symptoms: At their worst the symptoms were mild in the emergency department the symptoms are unchanged. The patient has experienced similar episodes in the past. The patient has not recently seen a physician. Pt reports sob for the last few days, no fever/chills, + non-productive cough, worse with exertion and when supine. NO swelling. Admitted last week for sob, "fluid in lungs", and flu. Reports felt a little better when went home, then got worse. No blood in stool. . Historical: - Allergies: 07:32 Augmentin; db 07:32 Cipro; db - Home Meds: 07:32 Phenytoin 100mg Oral 1 tab 2 times per day [Active]; metoprolol succinate 50 mg Oral db Tablet, Extended Release 24 hr 1 tab 2 times per day [Active]; Novolin N NPH U-100 Insulin 100 unit/mL Sub-Q tab 20 units every evening [Active]; furosemide 40 mg Oral tab 1 tab daily [Active]; Eliquis 5 mg Oral tablet 1 tab 2 times per day [Active]; atorvastatin 40 mg Oral tab 1 tab every day at bedtime [Active]; - PMHx: 07:32 Anxiety; Atrial Fib; CHF; Hypertension; Myocardial infarction; Diabetes - IDDM; High db Cholesterol; Kidney failure stage 4; Low HR; neuropathy; Seizures; - PSHx: 07:32 Appendectomy; Pacemaker-Defib; db - Immunization history:: Adult Immunizations unknown. - Social history:: Smoking status: Patient denies any tobacco usage or history of. - Family history:: not pertinent. - Hospitalizations: : No recent hospitalization is reported. ROS: 07:46 Constitutional: Negative for fever, chills, and weight loss, Eyes: Negative for injury, rn pain, redness, and discharge, Neck: Negative for injury, pain, and swelling, Cardiovascular: Negative for chest pain, palpitations, and edema, Respiratory: + sob and cough Abdomen/GI: Negative for abdominal pain, nausea, vomiting, diarrhea, and constipation, Back: Negative for injury and pain, MS/Extremity: Negative for injury and deformity, Skin: Negative for injury, rash, and discoloration, Neuro: Negative for headache, numbness, tingling, and seizure. Exam: 07:46 Constitutional: This is a well developed, well nourished patient who is awake, alert, rn and in no acute distress. Head/Face: Normocephalic, atraumatic. Cardiovascular: Regular rate and rhythm. No pulse deficits. Respiratory: Mild tachypnea after walking to room from waiting room, improved with rest, clear bilateral breath sounds, no retractions. Abdomen/GI: Soft, non-tender Skin: Warm, dry MS/ Extremity: Pulses equal, no cyanosis. Neurovascular intact. Full, normal range of motion. Equal circumference. Neuro: Awake and alert, GCS 15 Vital Signs: 07:30 BP 138 / 71; Pulse 99; Resp 18; Temp 97.9(O); Pulse Ox 99% on R/A; Weight 80.29 kg; db Height 5 ft. 0 in. ; 08:19 BP 118 / 75; Pulse 91; Resp 16; Pulse Ox 99% on R/A; db 08:19 BP 95 / 42; Pulse 90; Resp 18; Pulse Ox 99% on R/A; db 09:24 BP 106 / 77; rn 07:30 Body Mass Index 34.57 (80.29 kg, 152.4 cm) db MDM: 07:15 Patient medically screened. rn 09:24 Differential diagnosis: Anemia Anxiety Reaction CHF exacerbation, Myocardial Infarction rn pneumonia, Pneumothorax Psychogenic pulmonary edema. Data reviewed: vital signs, nurses notes, lab test result(s), EKG, radiologic studies, plain films, and as a result, I will discharge patient. Independent interpretation of the following test(s) in the Emergency Department X-Ray: My interpretation is CXR images neg for pneumothorax per my interpretation, no effusion. Counseling: I had a detailed discussion with the patient and/or guardian regarding: the historical points, exam findings, and any diagnostic results supporting the discharge/admit diagnosis, lab results, radiology results, the need for outpatient follow up, to return to the emergency department if symptoms worsen or persist or if there are any questions or concerns that arise at home. Response to treatment: the patient's symptoms have mildly improved after treatment, and as a result, I will discharge patient. Special discussion: I discussed with the patient/guardian in detail that at this point there is no indication for admission to the hospital. It is understood, however, that if the symptoms persist or worsen the patient needs to return immediately for re-evaluation. Based on the history and exam findings, there is no indication for further emergent testing or inpatient evaluation. I discussed with the patient/guardian the need to see the hat block maker for further evaluation of the symptoms. I discussed with the patient/guardian the need to see the primary care provider for further evaluation of the symptoms. ED course: Pt improved, ambulatory to bathroom without difficulty. W/u reveals improvement of lung findings on CXR, neg for pulmonary edema or effusions. Hemoglobin 9.8, patient reports a couple of weeks of hemorrhoidal bleeding, noted while in hospital, is improving, and no longer bleeding. Pt also with mild dehydration, likely 2/2 recent initiation of CHF medication including entresto and lasix. Will dc home with return precautions and cardiology f/u. . 07/04 07:32 Order name: BMP; Complete Time: 09:02 07/04 07:32 Order name: Blood Culture Adult (2) 07/04 07:32 Order name: CBC with Diff; Complete Time: 08:36 07/04 07:32 Order name: Hepatic Function; Complete Time: 09:02 07/04 07:32 Order name: NT PRO-BNP; Complete Time: 09:02 07/04 07:32 Order name: PT-INR; Complete Time: 08:55 07/04 07:32 Order name: Ptt, Activated; Complete Time: 08:55 07/04 07:32 Order name: Troponin HS; Complete Time: 09:02 07/04 07:32 Order name: XRAY CXR (1 view); Complete Time: 08:55 rn 07/04 07:32 Order name: EKG; Complete Time: 07:33 rn 07/04 07:32 Order name: Cardiac monitoring; Complete Time: 08:39 rn 07/04 07:32 Order name: EKG - Nurse/Tech; Complete Time: 08:39 rn 07/04 07:32 Order name: IV Saline Lock; Complete Time: 08:39 rn 07/04 07:32 Order name: Labs collected and sent; Complete Time: 08:39 rn 07/04 07:32 Order name: O2 Per Protocol; Complete Time: 08:39 rn 07/04 07:32 Order name: O2 Sat Monitoring; Complete Time: 08:39 rn Administered Medications: No medications were administered Disposition Summary: 07/04/22 09:27 Discharge Ordered Location: Home rn Problem: an ongoing problem rn Symptoms: have improved rn Condition: Stable rn Diagnosis - Dyspnea, unspecified rn - Dehydration rn - Anemia, unspecified rn Followup: rn - With: Private Physician - When: As needed - Reason: Recheck today's complaints, Re-evaluation by your physician Discharge Instructions: - Discharge Summary Sheet rn - Anemia rn - Dehydration, Adult rn - Shortness of Breath, Adult rn Forms: - Medication Reconciliation Form rn - Thank You Letter rn - Antibiotic rn gynecology - Prescription Opioid Use rn Signatures: Dispatcher [employer] David Chowdhury MD MD rn Benton, Danielle, RN RN db
--- NOTE | 2022-07-04 09:28 | ER ---
Nurse's Notes [facility] Name: Teena Simpson Age: 77 yrs Sex: Female : 1945 Arrival Date: 07/04/2022 Time: 07:14 Bed 7 Private MD: Diagnosis: Dyspnea, unspecified;Dehydration;Anemia, unspecified Presentation: 07/04 07:30 Chief complaint: Patient states: Patient states has SOB that started last night and db couldn't sleep. Last week diagnosed with the flu and given Heart Failure medications. Pt was ambulatory to room. Coronavirus screen: At this time, unable to obtain information related to travel outside the [place] At this time, the client does not indicate any symptoms associated with coronavirus-19. Ebola Screen: Patient negative for fever greater than or equal to 101.5 degrees Fahrenheit, and additional compatible Ebola Virus Disease symptoms Patient denies exposure to infectious person. Patient denies travel to an Ebola-affected area in the 21 days before illness onset. No symptoms or risks identified at this time. Initial Sepsis Screen: Does the patient meet any 2 criteria? No. Patient's initial sepsis screen is negative. Does the patient have a suspected source of infection? No. Patient's initial sepsis screen is negative. Risk Assessment: Do you want to hurt yourself or someone else? Patient reports no desire to harm self or others. Onset of symptoms was July 04, 2022. 07:30 Method Of Arrival: Ambulatory db 07:30 Acuity: TYSON 2 db Triage Assessment: 07:34 General: Appears in no apparent distress. comfortable, Behavior is calm, cooperative. db Pain: Denies pain. Neuro: Level of Consciousness is awake, alert, obeys commands, Oriented to person, place, time, situation, Speech is normal. Respiratory: Reports shortness of breath at rest on exertion Airway is patent Respiratory effort is even, unlabored, Respiratory pattern is regular, symmetrical, Onset: The symptoms/episode began/occurred this morning, the patient has mild shortness of breath. Historical: - Allergies: 07:32 Augmentin; db 07:32 Cipro; db - Home Meds: 07:32 Phenytoin 100mg Oral 1 tab 2 times per day [Active]; metoprolol succinate 50 mg Oral db Tablet, Extended Release 24 hr 1 tab 2 times per day [Active]; Novolin N NPH U-100 Insulin 100 unit/mL Sub-Q tab 20 units every evening [Active]; furosemide 40 mg Oral tab 1 tab daily [Active]; Eliquis 5 mg Oral tablet 1 tab 2 times per day [Active]; atorvastatin 40 mg Oral tab 1 tab every day at bedtime [Active]; - PMHx: 07:32 Anxiety; Atrial Fib; CHF; Hypertension; Myocardial infarction; Diabetes - IDDM; High db Cholesterol; Kidney failure stage 4; Low HR; neuropathy; Seizures; - PSHx: 07:32 Appendectomy; Pacemaker-Defib; db - Immunization history:: Adult Immunizations unknown. - Social history:: Smoking status: Patient denies any tobacco usage or history of. - Family history:: not pertinent. - Hospitalizations: : No recent hospitalization is reported. Screenin:19 [facility] ED Fall Risk Assessment (Adult) History of falling in the last 3 months, db including since admission No falls in past 3 months (0 pts) Confusion or Disorientation No (0 pts) Intoxicated or Sedated No (0 pts) Impaired Gait No (0 pts) Mobility Assist Device Used No (0 pt) Altered Elimination No (0 pt) Score/Fall Risk Level 0 - 2 = Low Risk Oriented to surroundings, Maintained a safe environment. Abuse screen: Denies threats or abuse. Denies injuries from another. Nutritional screening: No deficits noted. Tuberculosis screening: No symptoms or risk factors identified. Assessment: 07:23 Reassessment: patient is not in room at this time. db 07:45 Reassessment: see triage for initial assessment. db 08:18 Reassessment: notified Dr. Fields of difficulty obtaining IV access. db 09:03 Reassessment: Patient appears in no apparent distress at this time. Patient and/or db family updated on plan of care and expected duration. Pain level reassessed. Patient is alert, oriented x 3, equal unlabored respirations, skin warm/dry/pink. Patient states feeling better. Cardiovascular: Rhythm is Respiratory: Reports shortness of breath at rest on exertion Airway is patent Respiratory effort is even, unlabored, Respiratory pattern is regular, symmetrical, Breath sounds are clear. 09:08 Reassessment: Patient appears in no apparent distress at this time. Patient and/or db family updated on plan of care and expected duration. Pain level reassessed. Patient is alert, oriented x 3, equal unlabored respirations, skin warm/dry/pink. patient ambulatory to restroom with steady gate. General: Appears in no apparent distress. comfortable, Behavior is calm, cooperative. Neuro: Level of Consciousness is awake, alert, obeys commands, Oriented to person, place, time, situation. Vital Signs: 07:30 BP 138 / 71; Pulse 99; Resp 18; Temp 97.9(O); Pulse Ox 99% on R/A; Weight 80.29 kg; db Height 5 ft. 0 in. ; 08:19 BP 118 / 75; Pulse 91; Resp 16; Pulse Ox 99% on R/A; db 08:19 BP 95 / 42; Pulse 90; Resp 18; Pulse Ox 99% on R/A; db 09:24 BP 106 / 77; rn 07:30 Body Mass Index 34.57 (80.29 kg, 152.4 cm) db ED Course: 07:15 Patient arrived in ED. am2 07:15 David Fields MD is Attending Physician. rn 07:23 Judy Leigh, WM is Primary Nurse. db 07:32 Triage completed. db 07:35 Arm band placed on Patient placed in an exam room. db 07:55 Missed attempt(s): 20 gauge in right antecubital area. Bleeding controlled, band aid db applied, catheter tip intact. 08:05 Missed attempt(s): 22 gauge in left. db 08:05 Missed attempt(s):. db 08:12 XRAY CXR (1 view) In Process Unspecified. EDMS 08:36 Initial lab(s) drawn, by me, sent to lab. Inserted saline lock: 24 gauge in left hand, iw using aseptic technique. 10:27 Patient has correct armband on for positive identification. iw 10:27 No provider procedures requiring assistance completed. IV discontinued, intact, iw bleeding controlled, No redness/swelling at site. Pressure dressing applied. Administered Medications: No medications were administered Medication: 10:27 VIS not applicable for this client. iw Outcome: 09:27 Discharge ordered by . rn 10:27 Discharged to home via wheelchair, with family. iw 10:27 Condition: good 10:27 Discharge instructions given to patient, family, Instructed on discharge instructions, follow up and referral plans. Demonstrated understanding of instructions, follow-up care. 10:27 Patient left the ED. iw Signatures: Dispatcher [employer] Ceci Shirley RN RN iw David Fields MD MD rn Moreno, Amanda am2 Benton, Danielle, RN RN db Corrections: (The following items were deleted from the chart) 08:05 08:05 Missed attempt(s): 20 gauge in left db db
[2022-07-04 10:38] VITALS: TEMP 97.9; O2SAT 99
[2022-07-04 10:50] VITALS: BP 106/77
--- NOTE | 2022-07-05 11:49 | EKG ---
Test Date: 2022-07-04 Test Time: 08:15:42 [employer]: [employer] MEASUREMENT RESULTS: Intervals: Rate: 95 CO: 144 QRSD: 156 QT: 442 QTc: 555 [place]: P: CO: 144 QRS: -66 T: 106 INTERPRETIVE STATEMENTS: Electronic ventricular pacemaker Compared to ECG 06/24/2022 03:56:47 No significant changes Electronically Signed On 07-05-22 11:45:02 CDT by Ross Graf
== END 2022-07-04 10:27 | disposition home or self-care (01) ==
LOC: ER 07:14
DX: E86.0 Dehydration (principal); D64.9 Anemia, unspecified; E11.22 Type 2 diabetes mellitus with diabetic chronic kidney disease; Z79.4 Long term (current) use of insulin; N18.4 Chronic kidney disease, stage 4 (severe); Z99.2 Dependence on renal dialysis; I48.91 Unspecified atrial fibrillation; Z79.01 Long term (current) use of anticoagulants; Z95.810 Presence of automatic (implantable) cardiac defibrillator; Z88.1 Allergy status to other antibiotic agents
CPT/HCPCS: 36415; 71045; 80048; 80076; 83880; 84484; 85025; 85610; 85730; 87040; 93005; 99284

== ENCOUNTER 2022-07-12 09:28 | Day surgery (SDC) | payer OTHER ==
[2022-07-10 12:43] LABS: Absolute Lymphocytes (CBC) 1.6 K/uL (0.7-4.9); Hematocrit 31.8 % (36.0-45.0); Lymphocytes % 21.9 % (15.3-44.8); MCV 94.8 fL (80-100); MPV 10.5 fL (7.6-11.3); RBC Red Blood Cell Count 3.35 M/uL (3.86-4.86)
[2022-07-10 12:56] LABS: Potassium 4.2 mEq/L (3.5-5.1)
[2022-07-12] MEDS: NA CHLORIDE 0.9% 1,000 ML ONE ×3 (10:20→12:41)
[2022-07-12] MEDS ORDERED: propofoL 200 MG/20 ML VIAL IV ONE (11:11)
[2022-07-12] MEDS ORDERED: LIDOCAINE 2% MPF 5 ML VIAL ONE (11:12)
[2022-07-12] MEDS ORDERED: METRONIDAZOLE 500mg IVPB 500 MG/100 ML BAG IV ONE (11:15)
[2022-07-12] MEDS ORDERED: FENTANYL CITR 100 MCG/2 ML ONE (12:25)
[2022-07-12] MEDS ORDERED: dexAMETHasone 4 MG/ML VIAL ONE (12:30)
[2022-07-12] MEDS ORDERED: ONDANSETRON 4 MG/2 ML VIAL ONE (12:30)
--- NOTE | 2022-07-12 12:46 | P.BOP ---
Preoperative diagnosis: BRBPR, Hemorrhoids Postoperative diagnosis: same, internal and external hemorrhoid Primary procedure: EUA, ANOscopy, rigid proctoscopy, internal hemorrhoidectomy Estimated blood loss: <10cc Specimen: internal hemmorhoid friable mass like lesion Findings: internal hemmorhoid friable mass like lesion Anesthesia: General Complications: None Drain(s): Other (surgicell) Transferred to: Recovery Room Condition: Good
[2022-07-12 13:42] VITALS: BP 129/64; TEMP 97.6; O2SAT 96
[2022-07-12] MEDS ORDERED: HYDROCODONE/APAP 7.5/325 MG TAB ONE (14:02)
== END 2022-07-12 14:24 | disposition home or self-care (01) ==
LOC: OR 09:28
PROVIDERS: ATTEND Surgery
PROC: 06BY4ZC Excision of Hemorrhoidal Plexus, Percutaneous Endoscopic Approach (ICD-10-PCS; 2022-07-12)
PROC: 0DJD8ZZ Inspection of Lower Intestinal Tract, Via Natural or Artificial Opening Endoscopic (ICD-10-PCS; principal; 2022-07-12 12:00)
DX: K64.9 Unspecified hemorrhoids (principal); K62.5 Hemorrhage of anus and rectum; K62.89 Other specified diseases of anus and rectum
CPT/HCPCS: 85025; 80048; 36415; 82947; 88304; 45300; 46260; J2704; J1100; J2001; J3010; J2405; J7030; 88305

== ENCOUNTER 2022-07-15 09:04 | Emergency (ER) | payer OTHER ==
--- OUTSIDE RECORDS SUMMARY | 2022-07-15 09:14 | XMS REPORT | Continuity of Care Document ---
:1945 Author Organization [facility] t Address [address] [place] [address] [address] [place] [address] Care Team Providers Name Role Phone CAMRON ARIAS Primary Care Physician Unavailable Elaine Lamb Attending Clinician Unavailable FAM CRAIG Attending Clinician Unavailable SILVERIO ADAM Attending Clinician Unavailable SRIRAM HEATH Attending Clinician Unavailable Kumar SQUIRES, Sriram Attending Clinician Doctor Unassigned, [place] Attending Clinician Unavailable 2, [facility] Attending Clinician Unavailable Silverio Adam MD Attending Clinician Nara Galvan RN Attending Clinician Unavailable BRII SAMSON Attending Clinician Unavailable Marina Pang DO Attending Clinician Brii Samson MD Attending Clinician Fang Perez MD Attending Clinician Unknown, Attending Attending Clinician Unavailable FANG PEREZ Attending Clinician Unavailable JASON, AMITA Attending Clinician Unavailable JASON, AMITA Attending Clinician Unavailable Tin SQUIRES, Alexey Attending Clinician ALEXEY CASTLE Attending Clinician Unavailable DIANN GUY Attending Clinician Unavailable Diann Guy MD Attending Clinician MITCHELL GARCIA Attending Clinician Unavailable MITCHELL GARCIA Attending Clinician Unavailable IBIKUNLE, FOLUSHO F Attending Clinician Unavailable Ibikunle VETERINARY SURGEON, Folusho F Attending Clinician Major SQUIRES, Clare Combs Attending Clinician CLARE GONSALVES Attending Clinician Unavailable Tommy BURK, Luis Alberto Attending Clinician Unavailable Mitchell Garcia MD Attending Clinician Po, [facility] Main Attending Clinician Unavailable Willian SQUIRES, Ortega Lester Attending Clinician [phone] ORTEGA DORSEY Attending Clinician Unavailable Cielo Bautista [...] GRAMM, SHANTEL A Attending Clinician Unavailable Gramm VETERINARY SURGEON, Shantel A Attending Clinician Sabina Barba MD Attending Clinician SABINA BARBA Attending Clinician Unavailable Ericka Chen Attending Clinician ERICKA ACKERMAN Attending Clinician Unavailable Lab, Ang - Db Attending Clinician Unavailable IVRI PRICE Attending Clinician Unavailable Lab, [facility] Fam Pob I Attending Clinician Unavailable Jose VETERINARY SURGEON, Karla Attending Clinician Dee VETERINARY SURGEON, Viri Martinez Attending Clinician Teri Samano RN Attending Clinician Unavailable ERICH PANTOJA Attending Clinician Unavailable Pacemaker/Icd, [facility] Attending Clinician Unavailable Omole VETERINARY SURGEON, Min Godinez Attending Clinician [phone] OMOLE, MIN GRETCHEN Attending Clinician Unavailable Nita Degroot DO Attending Clinician NITA DEGROOT Attending Clinician Unavailable NITA DEGROOT Attending Clinician Unavailable Provider, [facility] Attending Clinician Unavailable Anedevante VETERINARY SURGEON, Monica Attending Clinician MONICA MCCORMICK Attending Clinician Unavailable Calli BURK, Jo More Attending Clinician Unavailable Kirt Thomason DO Attending Clinician Gab Servin MD Attending Clinician GAB SERVIN Attending Clinician Unavailable Cielo Henry RN Attending Clinician Fam Craig MD Attending Clinician [phone] Edgar Cortés MD Attending Clinician [phone] EDGAR CORTÉS Attending Clinician Unavailable Lubna Lal MD Attending Clinician LUBNA LAL Attending Clinician Unavailable , [facility] Echo Room 1 - Attending Clinician Unavailable Visit, [facility] Nurse Attending Clinician Unavailable Dago Gross MDHKaren Attending Clinician Pc, [facility] Vascular Room 1 - Attending Clinician Unavailable ALEXUS RAMOS Attending Clinician Unavailable ALEXUS RAMOS Attending Clinician Unavailable DAGO GROSSHKaren Attending Clinician Unavailable EVAN MARTIN Attending Clinician Unavailable EKATERINA BOUDREAUX Attending Clinician Unavailable Nate VETERINARY SURGEON, Madeleine Strauss Attending Clinician Emily Lezama Attending Clinician [facility], [facility] Heart Failure Cardio Attending Clinician Unavailjeremy e 1, [facility] Attending Clinician Unavailable FAM CRAIG Admitting Clinician Unavailable SILVERIO ADAM Admitting Clinician Unavailable BRII SAMSON Admitting Clinician Unavailable Brii Samson MD Admitting Clinician SRIRAM HEATH Admitting Clinician Unavailable CELIA HERNANDEZ Admitting Clinician Unavailable ARGENIS BARNETT Admitting Clinician Unavailable Argensi Barnett MD Admitting Clinician ANUJ GONZALES Admitting Clinician Unavailable Anuj Gonzales MD Admitting Clinician CLARE GONSALVES Admitting Clinician Unavailable Gab Servin MD Admitting Clinician GAB SERVIN Admitting Clinician Unavailable LUBNA LAL Admitting Clinician Unavailable EVAN MARTIN Admitting Clinician Unavailable Payers Payer Name Policy Type Policy Number Effective Date Expiration Date Lucy toribio BLAKE/SANDRA [id number] 2019 MEDICARE ADVANTAGE 00:00:00 HUMANA CHOICE [id number] 2022 00:00:00 Problems Condition Condition Condition Status Onset Resolution Last Treating Co mments Source Name Details Category Date Date Treatment Clinician Date Pulmonary Pulmonary Disease Active 2021-02 Uni vers hypertensi hypertensi 2-31 it y of on on 00:00: [address] Branch Presence Presence Disease Active 2021-02 Unive rs of cardiac of cardiac 2-30 it y of resynchron [place]ynchron [place] ization ization 00 Medical therapy therapy Branch defibrilla defibrilla tor tor ([employer] PHOTOGRAPH-D) ([employer]OR [employer] PHOTOGRAPH-D) SOB SOB Disease Active 2021-02 Univers (shortness (shortness 2-29 it y of of breath) of breath[place] 00 [place] Atrial Atrial Disease Active Univers tachycardi tachycardi 2-25 it y of a a 00:00: [address] Branch Dizziness Dizziness Disease Active Uni [...] Added automatic ally from request for surgery [id number] Refusal of Refusal of Disease Active 2020-02 U nivers blood blood 2-13 ity of transfusio transfusio 00:[place] ns as 00 Medical patient is patient is Br anch [employer] Osteopenia Osteopenia Disease Active 2020-02 U paresh 1-09 ity of 00:00: [place] 00 Medical [...] pain 5-09 it y of 00:00: [place] 00 Medical Branch Left arm Left arm [...] Univers nausea nausea 2-26 ity of 00:00: Medical Branch Dysphagia Dysphagia Disease Active 2017-02 Uni vers 2-26 ity of 00:00: Medical Branch Fatty Fatty Disease Active Univers liver liver 5- ity of 00:: Medical Branch Abnormal Abnormal Disease Active Unive rs LFTs LFTs 5- ity of 00:00: [place] [facility] Multiple Multiple Disease Active Overview: Un araseli renal renal 5- Formattin ity of cysts cysts 00:00: g of this note Medical might be Branch different from the original. Bosniak Type [address] Hyperkalem Hyperkalem Disease Active U nivers ia ia 5- ity of 00:00: Medical Branch History of History of Disease Active U nivers colon colon 5-03 ity of polyps polyps 00:00: [address] Branch History of History of Disease Active U nivers pulmonary pulmonary 2-17 ity of embolism embolism 00:00: [place] [facility] Branch ICD ICD Disease Active Univers (implantab (implantab 2-17 it y of le le 00:00: [place] cardiovert cardiovert 00 Me dical er-defibri er-defibri Br anch llator) in llator) in place place Atrial Atrial Disease Active Univers fibrillati fibrillati 1-16 it y of on on 00:00: [address] Branch Syncope Syncope Disease Active Univers 1-15 ity of 00:00: [place] [facility] Branch DM DM Disease Active Univers (diabetes (diabetes 8-31 ity of mellitus), mellitus), [place] type 2 type 2 00 Medical with renal with renal Br anch complicati complicati ons ons Anxiety Anxiety Disease Active Univers ity of [facility] CKD CKD Disease Active Univers (chronic (chronic ity of kidney kidney [place] disease) disease) Medica l stage 4, stage 4, Branch GFR 15-29 GFR 15-29 ml/min ml/min Epilepsy Epilepsy Disease Active Unive rs ity of [facility] Esophageal Esophageal Disease Active U nivers reflux reflux ity of [facility] HLD HLD Disease Active Univers (hyperlipi (hyperlipi it y of demia) demia) [facility] HTN HTN Disease Active Univers (hypertens (hypertens it y of ion) ion) [place] [facility] Non-ischem Non-ischem Disease Active U [...] tobacco Passive smoker Un iversity of use [place] [facility] History SDOH University o f Alcohol Std Drinks [place] [facility] History SDOH University o f Alcohol Binge [place] Medic al Branch History SDOH Social Unive rsity of Connections [facility] Med ical Together Branch History SDOH Social Unive rsity of Connections [facility] Medical Branch History SDOH Social Unive rsity of Connections [place] Medical Membership Branch History SDOH Social Unive rsity of [facility] Medical Meetings Branch Exposure to 2022-03-12 2022-03-22 Not sure University of SARS-CoV-2 (event) 00:00:00 07:50:00 [facility] Branch Alcohol intake 2022-03-14 2022-03-14 Current University of 00:00:00 00:00:00 non-drinker of [facility] alcohol Branch (finding) History SDOH 2022-02-17 2022-02-17 1 University o f Alcohol Frequency 00:00:00 00:00:00 [facility] edical Branch History SDOH Social 2022-02-17 2022-02-17 5 Unive rsity of Connections Phone 00:00:00 00:00:00 [facility] edical Branch History SDMI Social 2022-02-17 2022-02-17 98 Unive rsity of Connections Living 00:00:00 00:00:00 [place] [facility] History SDOH 2022-02-17 2022-02-17 7 University o f Physical Activity 00:00:00 00:00:00 [facility] edical DPW Branch History SDMI 2022-02-17 2022-02-17 1 University o f Physical Activity 00:00:00 00:00:00 [place] M edical MPS Branch History SDMI 2022-02-17 2022-02-17 5 University o f Financial 00:00:00 00:00:00 [place] [facility] History SDOH Food 2022-02-17 2022-02-17 1 Univers ity of Worry 00:00:00 00:00:00 [place] [facility] History SDOH Food 2022-02-17 2022-02-17 1 Univers ity of Scarcity 00:00:00 00:00:00 [place] [facility] History SDMI 2022-02-17 2022-02-17 2 University o f Transport Med 00:00:00 00:00:00 [place] Medic al Branch History [facility] 2022-02-17 2022-02-17 2 University o f Transport Non-Med 00:00:00 00:00:00 [facility] edical Branch Tobacco use and 2022-02-16 2022-02-16 Smokeless Universit y of exposure 00:00:00 00:00:00 tobacco non-user [facility] dical Branch Tobacco Comment 2022-02-16 2022-02-16 exposed to "a Univer sity of 00:00:00 00:00:00 lot" of passive [place] Med ical smoke from Branch Sex [birth year] Universit y of 00:00:00 00:00:00 [facility] Smoking Status Start Date Stop Date Source Never smoked tobacco [facility] Medications Ordered Filled Start Stop Current Ordering Indication Dosage Frequency Signature Comments Components Source Medication Medication Date Date Medication? Clinician (SIG) Name Name metoprolol Yes [id number] 50mg Take 1 Univers succinate 2-07 tablet by ity o f XL 50 mg 24 00:00: mouth 2 [place] hr tablet 00 (two) Medical times Branch daily. amiodarone Yes [id number] 200mg Take 1 Univers 200 mg 1-26 tablet by ity of tablet 00:00: mouth [place] 00 daily. Medical Branch amiodarone Yes [id number] 200mg Take 1 Univers 200 mg 1-26 tablet by ity of tablet 00:00: mouth [place] 00 daily. Medical Branch amiodarone Yes [id number] 200mg Take 1 Univers 200 mg 1-26 tablet by ity of tablet 00:00: mouth [place] 00 daily. Medical Branch amiodarone Yes [id number] 200mg Take 1 Univers 200 mg 1-26 tablet by ity of tablet 00:00: mouth [place] 00 daily. Medical Branch amiodarone Yes [id number] 200mg Take 1 Univers 200 mg 1-26 [...] No 50mg Take 50 mg Univers succinate -11 19-10 by mouth ity o f XL 50 mg 24 09:07: 00:00 daily. 1 [place] hr tablet 02 :00 tablet Medical twice a Branch day at 6am and 6pm furosemide 2022- Yes [id number] 40mg Take 1 Univers 40 mg 1-10 tablet by ity of tablet 00:00: mouth [place] 00 every Medical morning Branch and evening. metoprolol Yes [id number] 50mg Take 1 Univers succinate 1-10 tablet by ity o f XL 50 mg 24 00:00: mouth 2 [place] hr tablet 00 (two) Medical times Branch daily. apixaban Yes 1358 2.5mg Take 1 Univer s (ELIQUIS) 1-10 tablet by ity o f 2.5 mg 00:00: mouth 2 [place] tablet 00 (two) Medical times Branch daily. Indication s: atrial fibrillati on furosemide Yes [id number] 40mg Take 1 Univers 40 mg 1-10 tablet by ity of tablet 00:00: mouth [place] 00 every Medical morning Branch and evening. metoprolol 2022-0 Yes [id number] 50mg Take 1 Univers succinate 1-10 tablet [...] s: atrial fibrillati on furosemide 0 Yes [id number] 40mg Take 1 Univers 40 mg 1-10 tablet by ity of tablet 00:00: mouth [place] 00 every Medical morning Branch and evening. metoprolol 2022-0 Yes [id number] 50mg Take 1 Univers succinate 1-10 tablet [...] s: atrial fibrillati on furosemide 0 Yes [id number] 40mg Take 1 Univers 40 mg 1-10 tablet by ity of tablet 00:00: mouth [place] 00 every Medical morning Branch and evening. metoprolol 2022-0 Yes [id number] 50mg Take 1 Univers succinate 1-10 tablet [...] s: atrial fibrillati on furosemide 2022-0 Yes [id number] 40mg Take 1 Univers 40 mg 1-10 tablet by ity of tablet 00:00: mouth [place] 00 every Medical morning Branch and evening. metoprolol 2022-0 Yes [id number] 50mg Take 1 Univers succinate 1-10 tablet [...] s: atrial fibrillati on furosemide 2022-0 Yes [id number] 40mg Take 1 Univers 40 mg 1-10 tablet by ity of tablet 00:00: mouth [place] 00 every Medical morning Branch and evening. metoprolol 2022-0 Yes [id number] 50mg Take 1 Univers succinate 1-10 tablet [...] s: atrial fibrillati on furosemide 2022-0 Yes [id number] 40mg Take 1 Univers 40 mg 1-10 tablet by ity of tablet 00:00: mouth [place] 00 every Medical morning Branch and evening. metoprolol 2022-0 Yes [id number] 50mg Take 1 Univers succinate 1-10 tablet [...] s: atrial fibrillati on furosemide 2022-0 Yes [id number] 40mg Take 1 Univers 40 mg 1-10 tablet by ity of tablet 00:00: mouth [place] 00 every Medical morning Branch and evening. apixaban 2022-0 Yes 1358 2.5mg Take 1 Univer s (ELIQUIS) 1-10 tablet by ity o f 2.5 mg 00:00: mouth 2 [place] tablet 00 (two) Medical times Branch daily. Indication s: atrial fibrillati on furosemide 2023-0 Yes [id number] 40mg Take 1 Univers 40 mg 1-10 tablet by ity of tablet 00:00: mouth [place] 00 every Medical morning Branch and evening. apixaban Yes 1358 2.5mg Take 1 Univer s (ELIQUIS) 1-10 tablet by ity o f 2.5 mg 00:00: mouth 2 [place] tablet 00 (two) Medical times Branch daily. Indication s: atrial fibrillati on metoprolol 202- No [id number] 50mg Take 1 Univers succinate 1-10 02-06 tablet by ity of XL 50 mg 24 00:00: 00:00 mouth 2 [place] hr tablet 00 :00 (two) Medical times Branch daily. insulin NPH Yes [id number] 20U inject 20 Univers 100 unit/mL 1-02 Units ity of injection 00:00: under the [place] 00 skin every Medical morning. Branch insulin NPH Yes [id number] 20U inject 20 Univers 100 unit/mL 1-02 Units ity of injection 00:00: under the [place] 00 skin every Medical morning. Branch insulin NPH Yes [id number] 20U inject 20 Univers 100 unit/mL 1-02 Units ity of injection 00:00: under the [place] 00 skin every Medical morning. Branch insulin NPH Yes [id number] 20U inject 20 Univers 100 unit/mL 1-02 Units ity of injection 00:00: under the [place] 00 skin every Medical morning. Branch insulin NPH Yes [id number] 20U inject 20 Univers 100 unit/mL 1-02 Units ity of injection 00:00: under the [place] 00 skin every Medical morning. Branch insulin NPH Yes [id number] 20U inject 20 Univers 100 unit/mL 1-02 Units ity of injection 00:00: under the [place] 00 skin every Medical morning. Branch insulin NPH Yes [id number] 20U inject 20 Univers 100 unit/mL 1-02 Units ity of injection 00:00: under the [place] 00 skin every Medical morning. Branch insulin NPH Yes [id number] 20U inject 20 Univers 100 unit/mL 1-02 Units ity of injection 00:00: under the [place] 00 skin every Medical morning. Branch insulin NPH 2022-0 Yes [id number] 20U inject 20 Univers 100 unit/mL 1-02 Units ity of injection 00:00: under the [place] 00 skin every Medical morning. Branch insulin NPH 2022-0 Yes [id number] 20U inject 20 Univers 100 unit/mL 1-02 Units ity of injection 00:00: under the [place] 00 skin every Medical morning. Branch insulin NPH 2022-0 Yes [id number] 20U inject 20 Univers 100 unit/mL 1-02 Units ity of injection 00:00: under the [place] 00 skin every Medical morning. Branch furosemide 2022-0 202- No 40mg 40 mg, Univ ers [...] and 2 capsules in the evening. metoprolol 3-0 Yes 50mg Take 50 mg U nivers [...] 2022-0 Yes 3mg 3 mg, Univers (MELATIN) 1- Oral, QHS, ity of tablet 3 mg 03:00: First dose [place] 00 on Sat [facility] 02/18/22 Branch at 2100, Until Discontinu ed, Routine insulin NPH 2022-0 Yes [id number] 15U inject 15 Univers 100 unit/mL 1-01 Units ity of injection 00:00: under the [place] 00 skin at Medical bedtime. Branch polyethylen 2022-0 Yes [id number] 17g Take 1 Univers e glycol 1- Packet by ity of 3350 17 00:00: mouth [place] gram powder 00 every 24 Medi sandra (twenty-fo Branch ur) hours as needed for Constipati on. insulin NPH 2022-0 Yes [id number] 15U inject 15 Univers 100 unit/mL 1-01 Units ity of injection 00:00: under the [place] 00 skin at Medical bedtime. Branch polyethylen 0 Yes [id number] 17g Take 1 Univers e glycol 1-01 Packet by ity of 3350 17 00:00: mouth [place] gram powder 00 every 24 Medi sandra (twenty-fo Branch ur) hours as needed for Constipati on. insulin NPH Yes [id number] 15U inject 15 Univers 100 unit/mL 1-01 Units ity of injection 00:00: under the [place] 00 skin at Medical bedtime. Branch polyethylen 0 Yes [id number] 17g Take 1 Univers e glycol 1-01 Packet by ity of 3350 17 00:00: mouth [place] gram powder 00 every 24 Medi sandra (twenty-fo Branch ur) hours as needed for Constipati on. insulin NPH Yes [id number] 15U inject 15 Univers 100 unit/mL 1-01 Units ity of injection 00:00: under the [place] 00 skin at Medical bedtime. Branch polyethylen 0 Yes [id number] 17g Take 1 Univers e glycol 1-01 Packet by ity of 3350 17 00:00: mouth [place] gram powder 00 every 24 Medi sandra (twenty-fo Branch ur) hours as needed for Constipati on. insulin NPH Yes [id number] 15U inject 15 Univers 100 unit/mL 1-01 Units ity of injection 00:00: under the [place] 00 skin at Medical bedtime. Branch polyethylen 0 Yes [id number] 17g Take 1 Univers e glycol 1-01 Packet by ity of 3350 17 00:00: mouth [place] gram powder 00 every 24 Medi sandra (twenty-fo Branch ur) hours as needed for Constipati on. insulin NPH Yes [id number] 15U inject 15 Univers 100 unit/mL 1-01 Units ity of injection 00:00: under the [place] 00 skin at Medical bedtime. Branch polyethylen 0 Yes [id number] 17g Take 1 Univers e glycol 1-01 Packet by ity of 3350 17 00:00: mouth [place] gram powder 00 every 24 Medi sandra (twenty-fo Branch ur) hours as needed for Constipati on. insulin NPH Yes [id number] 15U inject 15 Univers 100 unit/mL 1-01 Units ity of injection 00:00: under the [place] 00 skin at Medical bedtime. Branch polyethylen 2022-0 Yes [id number] 17g Take 1 Univers e glycol 1-01 Packet by ity of 3350 17 00:00: mouth [place] gram powder 00 every 24 Medi sandra (twenty-fo Branch ur) hours as needed for Constipati on. insulin NPH 2022-0 Yes [id number] 15U inject 15 Univers 100 unit/mL 1-01 Units ity of injection 00:00: under the [place] 00 skin at Medical bedtime. Branch polyethylen 2022-0 Yes [id number] 17g Take 1 Univers e glycol 1-01 Packet by ity of 3350 17 00:00: mouth [place] gram powder 00 every 24 Medi sandra (twenty-fo Branch ur) hours as needed for Constipati on. insulin NPH 2022-0 Yes [id number] 15U inject 15 Univers 100 unit/mL 1-01 Units ity of injection 00:00: under the [place] 00 skin at Medical bedtime. Branch polyethylen 2022-0 Yes [id number] 17g Take 1 Univers e glycol 1-01 Packet by ity of 3350 17 00:00: mouth [place] gram powder 00 every 24 Medi sandra (twenty-fo Branch ur) hours as needed for Constipati on. insulin NPH 2022-0 Yes [id number] 15U inject 15 Univers 100 unit/mL 1-01 Units ity of injection 00:00: under the [place] 00 skin at Medical bedtime. Branch polyethylen 2022-0 Yes [id number] 17g Take 1 Univers e glycol 1-01 Packet by ity of 3350 17 00:00: mouth [place] gram powder 00 every 24 Medi sandra (twenty-fo Branch ur) hours as needed for Constipati on. insulin NPH 2022-0 Yes [id number] 15U inject 15 Univers 100 unit/mL 1-01 Units ity of injection 00:00: under the [place] 00 skin at Medical bedtime. Branch polyethylen 2022-0 Yes [id number] 17g Take 1 Univers e glycol 1-01 Packet by ity of 3350 17 00:00: mouth [place] gram powder 00 every 24 Medi sandra (twenty-fo Branch ur) hours as needed for Constipati on. furosemide 2022- No [id number] 40mg Take 1 Univers 40 mg 02-19 tablet by ity of tablet 00:00: 05:59 mouth [place] 00 :00 every Medical morning Branch and evening for 30 days. furosemide 2022- No [id number] 40mg Take 1 Univers 40 mg 02-19 tablet by ity of tablet 00:00: 05:59 mouth [place] 00 :00 every Medical morning Branch and evening for 30 days. furosemide 2022- No [id number] 40mg Take 1 Univers 40 mg 02-19 tablet by ity of tablet 00:00: 00:00 mouth [place] 00 :00 every Medical morning Branch and evening for 30 days. furosemide 2022- No [id number] 40mg Take 1 Univers 40 mg 02-19 [...] KIT) 38 Starting Medical injection 1 on Fri Branch mg 02/17/22 at 1542, Until Discontinu ed, JACQUI, Blood Glucose < or = 70 mg/dL and patient is unable to swallow or has mental changes. dextrose 50 2021-02 Yes 25mL 25 mL, Univ ers % in water 2-30 Slow IV ity of (D50W) 21:42: Push, PRN, [place] injection 38 Starting Medica l 25 mL on Fri Branch 02/17/22 at 1542, Until Discontinu ed, JACQUI, Blood Glucose < or = 70 mg/dL and patient is unable to swallow or has mental status changes. phenytoin 2021-02 Yes 100mg 100 mg, Univ ers Extended 2-30 Oral, QAM, ity o f (DILANTIN 15:00: First dose [place] KAPSEAL) 00 on Fri Medical capsule 100 02/17/22 Bran ch mg at 0900, Until Discontinu ed, Routine pantoprazol 2021-02 Yes 40mg 40 mg, Univ ers e 2-30 Oral, ity of (PROTONIX) 15:00: DAILY, [place] EC tablet 00 First dose Medi sandra 40 mg on Sun Branch 02/17/22 at 0900, Until Discontinu ed, Routine insulin NPH 2021-02 Yes 20U 20 Units, U nivers (HUMULIN N) 30 Subcutaneo it y of injection 15:00: us, QAM, [place] 20 Units 00 First dose Medic al on Sun Branch 02/17/22 at 0900, Until Discontinu ed, Routine amLODIPine 2021-02- No 10mg 10 mg, Univ ers (NORVASC) 02-18 Oral, ity of tablet 10 15:00: 14:59 DAILY, [place] mg 00 :07 First dose Medical on Sun Branch 02/17/22 at 0900, Until Discontinu ed, Routine sulfur 2021-02- No [id number] 5mL 5 mL, Un araseli hexafluorid 02-17 9103 Intravenou i ty of e microsphr 15:00: 15:00 s, ONCE, 1 [place] (LUMASON) 00 :00 dose, On Medica l injection 5 Sun Branch mL 02/17/22 at 0900, Routine
archeology faculty member approving Restricted medication : KUMARSRIRAM polyethylen 2021-02 Yes 17g 17 g, Unive rs e glycol 2-30 Oral, ity of 3350 powder 05:09: [id number], [place] 17 g 36 Starting Medical on [place] Branch 02/16/22 at 2309, Until Discontinu ed, Routine, Constipati on phenytoin 2021-02 Yes 200mg 200 mg, Univ ers Extended 2-30 Oral, QHS, ity o f (DILANTIN 03:00: First dose [place] KAPSEAL) 00 on [facility] Medical capsule 200 02/16/22 Bran ch mg at 2100, Until Discontinu ed, Routine insulin NPH 2021-02 Yes 15U 15 Units, U nivers (HUMULIN N) 2-30 Subcutaneo it y of injection 03:00: [place], QHS, [place] 15 Units 00 First dose Medic al on [facility] Branch 02/16/22 at 2100, Until Discontinu ed, Routine atorvastati 2021-02 Yes 40mg 40 mg, Univ ers n (LIPITOR) 2-30 Oral, QHS, it y of tablet 40 03:00: First dose [place] mg 00 on [facility] 02/16/22 Branch at 2100, Until Discontinu ed, Routine levETIRAcet 2021-02 Yes 500mg 500 mg, Un araseli am (KEPPRA) 2-30 Oral, BID, it y of tablet 500 02:00: First dose [place] mg 00 on [facility] 02/16/22 Branch at 2000, Until Discontinu ed, Routine apixaban 2021-02 Yes 1358 5mg 5 mg, Univers (ELIQUIS) 2-30 Oral, BID, ity of tablet 5 mg 02:00: First dose [place] 00 on [facility] 02/16/22 Branch at 2000, Until Discontinu ed, Routine
Indicatio ns: Non-Valvul ar Atrial Fibrillati on furosemide 2021-02- No 40mg 40 mg, Univ ers (LASIX) 202-19 Slow IV ity of injection 02:00: 18:11 Push, [place] 40 mg 00 :42 Q12H, Medical First dose Branch on [facility] 02/16/22 at 2000, Until Discontinu ed, Routine metoprolol 2021-02- No 50mg 50 mg, Univ ers succinate 202-18 Oral, BID, ity of XL (TOPROL 02:00: 14:37 First dose [place] XL) tablet 00 :05 on [facility] Medical 50 mg 02/16/22 Branch at [...] Branch 02/16/22 at 1100, JACQUI semaglutide Yes [id number] .25mg inject Univers (OZEMPIC) 8-17 0.25 mg ity of 0.25 mg [place] 00:00: [place] the [place] 0.5 mg(2 00 skin Medical mg/1.5 mL) weekly. Branch PnIj semaglutide Yes [id number] .25mg inject Univers (OZEMPIC) 8-17 0.25 mg ity of 0.25 mg or 00:00: under the [place] 0.5 mg(2 00 skin Medical mg/1.5 mL) weekly. Branch PnIj semaglutide Yes [id number] .25mg inject Univers (OZEMPIC) 8-17 0.25 mg ity of 0.25 mg or 00:00: under the [place] 0.5 mg(2 00 skin Medical mg/1.5 mL) weekly. Branch PnIj semaglutide Yes [id number] .25mg inject Univers (OZEMPIC) 8-17 0.25 mg ity of 0.25 mg or 00:00: under the [place] 0.5 mg(2 00 skin Medical mg/1.5 mL) weekly. Branch PnIj semaglutide 0 Yes [id number] .25mg inject Univers (OZEMPIC) 8-17 0.25 mg ity of 0.25 mg or 00:00: under the [place] 0.5 mg(2 00 skin Medical mg/1.5 mL) weekly. Branch PnIj semaglutide 0 Yes [id number] .25mg inject Univers (OZEMPIC) 8-17 0.25 mg ity of 0.25 mg or 00:00: under the [place] 0.5 mg(2 00 skin Medical mg/1.5 mL) weekly. Branch PnIj semaglutide 0 Yes [id number] .25mg inject Univers (OZEMPIC) 8-17 0.25 mg ity of 0.25 mg or 00:00: under the [place] 0.5 mg(2 00 skin Medical mg/1.5 mL) weekly. Branch PnIj semaglutide Yes [id number] .25mg inject Univers (OZEMPIC) 8-17 0.25 mg ity of 0.25 mg or 00:00: under the [place] 0.5 mg(2 00 skin Medical mg/1.5 mL) weekly. Branch PnIj semaglutide Yes [id number] .25mg inject Univers (OZEMPIC) 8-17 0.25 mg ity of 0.25 mg or 00:00: under the [place] 0.5 mg(2 00 skin Medical mg/1.5 mL) weekly. Branch PnIj semaglutide Yes [id number] .25mg inject Univers (OZEMPIC) 8-17 0.25 mg ity of 0.25 mg or 00:00: under the [place] 0.5 mg(2 00 skin Medical mg/1.5 mL) weekly. Branch PnIj semaglutide 2021-0 Yes [id number] .25mg inject Univers (OZEMPIC) 8-17 0.25 mg ity of 0.25 mg or 00:00: under the [place] 0.5 mg(2 00 skin Medical mg/1.5 mL) weekly. Branch PnIj semaglutide Yes [id number] .25mg inject Univers (OZEMPIC) 8-17 0.25 mg ity of 0.25 mg or 00:00: under the [place] 0.5 mg(2 00 skin Medical mg/1.5 mL) weekly. Branch PnIj semaglutide 2021-0 Yes [id number] .25mg inject Univers (OZEMPIC) 8-17 0.25 mg ity of 0.25 mg or 00:00: under the [place] 0.5 mg(2 00 skin Medical mg/1.5 mL) weekly. Branch PnIj semaglutide 2021-0 Yes [id number] .25mg inject Univers (OZEMPIC) 8-17 0.25 mg ity of 0.25 mg or 00:00: under the [place] 0.5 mg(2 00 skin Medical mg/1.5 mL) weekly. Branch PnIj PHENYTOIN 2021-0 Yes 100mg Take 100 Uni vers ORAL [...] capsules in the evening. amLODIPine 2-0 Yes [id number] 10mg Take 1 U nivers 10 mg 6-13 tablet by ity of tablet 00:00: mouth [place] 00 daily. Medical Branch amLODIPine 2-0 Yes [id number] 10mg Take 1 U nivers 10 mg 6-13 tablet by ity of tablet 00:00: mouth [place] 00 daily. Medical Branch amLODIPine 2-0 Yes [id number] 10mg Take 1 U nivers 10 mg 6-13 tablet by ity of tablet 00:00: mouth [place] 00 daily. Medical Branch amLODIPine 2-0 Yes [id number] 10mg Take 1 U nivers 10 mg 6-13 tablet by ity of tablet 00:00: mouth [place] 00 daily. Medical Branch amLODIPine 2-0 Yes [id number] 10mg Take 1 U nivers 10 mg 6-13 tablet by ity of tablet 00:00: mouth [place] 00 daily. Medical Branch amLODIPine 2021-0 2022- No [id number] 10mg Take 1 Univers 10 mg 6-13 01-10 tablet by ity of tablet 00:00: 00:00 mouth [place] 00 :00 daily. Medical Branch amLODIPine 2021-0 2022- No [id number] 10mg Take 1 Univers 10 mg 6-13 [...] s: atrial fibrillati on OXCARBAZEPI 2-0 Yes [id number] TAKE 1 Univers [place] 150 mg 3-08 TABLET 2 X ity of tablet 00:00: A DAY FOR [place] 00 1 WEEK Medical THEN 2 Branch TABS 2X DAY FOR 1 WEEK 3 TABLES 2XADAY OXCARBAZEPI 2022-0 Yes [id number] TAKE 1 Univers [place] 150 mg 3-08 TABLET 2 X ity of tablet 00:00: A DAY FOR [place] 00 1 WEEK Medical THEN 2 Branch TABS 2X DAY FOR 1 WEEK 3 TABLES 2XADAY OXCARBAZEPI 2022-0 Yes [id number] TAKE 1 Univers [place] 150 mg 3-08 TABLET 2 X ity of tablet 00:00: A DAY FOR [place] 00 1 WEEK Medical THEN 2 Branch TABS 2X DAY FOR 1 WEEK 3 TABLES 2XADAY OXCARBAZEPI 2022-0 Yes [id number] TAKE 1 Univers [place] 150 mg 3-08 TABLET 2 X ity of tablet 00:00: A DAY FOR [place] 1 WEEK Medical THEN 2 Branch TABS 2X DAY FOR 1 WEEK 3 TABLES 2XADAY OXCARBAZEPI 2022-0 Yes [id number] TAKE 1 Univers [place] 150 mg 3-08 TABLET 2 X ity of tablet 00:00: A DAY FOR [place] 1 WEEK Medical THEN 2 Branch TABS 2X DAY FOR 1 WEEK 3 TABLES 2XADAY OXCARBAZEPI 2022-0 Yes [id number] TAKE 1 Univers [place] 150 mg 3-08 TABLET 2 X ity of tablet 00:00: A DAY FOR [place] 1 WEEK Medical THEN 2 Branch TABS 2X DAY FOR 1 WEEK 3 TABLES 2XADAY OXCARBAZEPI 2022-0 Yes [id number] TAKE 1 Univers [place] 150 mg 3-08 TABLET 2 X ity of tablet 00:00: A DAY FOR [place] 00 1 WEEK Medical THEN 2 Branch TABS 2X DAY FOR 1 WEEK 3 TABLES 2XADAY OXCARBAZEPI 2022-0 Yes [id number] TAKE 1 Univers [place] 150 mg 3-08 TABLET 2 X ity of tablet 00:00: A DAY FOR [place] 00 1 WEEK Medical THEN 2 Branch TABS 2X DAY FOR 1 WEEK 3 TABLES 2XADAY OXCARBAZEPI 2022-0 Yes [id number] TAKE 1 Univers [place] 150 mg 3-08 TABLET 2 X ity of tablet 00:00: A DAY FOR [place] 00 1 WEEK Medical THEN 2 Branch TABS 2X DAY FOR 1 WEEK 3 TABLES 2XADAY OXCARBAZEPI 2022-0 Yes [id number] TAKE 1 Univers NE 150 mg 3-08 TABLET 2 X ity of tablet 00:00: A DAY FOR [place] 00 1 WEEK Medical THEN 2 Branch TABS 2X DAY FOR 1 WEEK 3 TABLES 2XADAY OXCARBAZEPI 2022-0 Yes [id number] TAKE 1 Univers [place] 150 mg 3-08 TABLET 2 X ity of tablet 00:00: A DAY FOR [place] 1 WEEK Medical THEN 2 Branch TABS 2X DAY FOR 1 WEEK 3 TABLES 2XADAY OXCARBAZEPI 2022-0 Yes [id number] TAKE 1 Univers [place] 150 mg 3-08 TABLET 2 X ity of tablet 00:00: A DAY FOR [place] 1 WEEK Medical THEN 2 Branch TABS 2X DAY FOR 1 WEEK 3 TABLES 2XADAY OXCARBAZEPI 2022-0 Yes [id number] TAKE 1 Univers [place] 150 mg 3-08 TABLET 2 X ity of tablet 00:00: A DAY FOR [place] 1 WEEK Medical THEN 2 Branch TABS 2X DAY FOR 1 WEEK 3 TABLES 2XADAY OXCARBAZEPI 2022-0 Yes [id number] TAKE 1 Univers NE 150 mg 3-08 TABLET 2 X ity of tablet 00:00: A DAY FOR [place] 1 WEEK Medical THEN 2 Branch TABS 2X DAY FOR 1 WEEK 3 TABLES 2XADAY metoprolol 2-0 Yes 100mg Take 100 Un [...] 6am and 6pm insulin NPH 0 Yes [id number] 10U inject Univers (NOVOLIN N 04-13 10-15 ity of NPH U-100 00:00: Units [place] INSULIN) 00 under the Medica l 100 unit/mL skin every Br anch injection evening. insulin NPH Yes [id number] 10U inject Univers (NOVOLIN N 04-13 10-15 ity of NPH U-100 00:00: Units [place] INSULIN) 00 under the Medica l 100 unit/mL skin every Br anch injection evening. insulin NPH Yes [id number] 10U inject Univers (NOVOLIN N 04-13 10-15 ity of NPH U-100 00:00: Units [place] INSULIN) 00 under the Medica l 100 unit/mL skin every Br anch injection evening. insulin NPH 2022- No [id number] 10U inject Univers (NOVOLIN N 04-13 10-15 ity of NPH U-100 00:00: 00:00 Units [place] INSULIN) 00 :00 under the Medica l 100 unit/mL skin every Br anch injection evening. furosemide 0 Yes [id number] 20mg Take 1 Univers 20 mg 1-27 tablet by ity of tablet 00:00: mouth 00 daily. Medical Branch levETIRAcet 2021-0 Yes [id number] 500mg Take 1 Univers am 500 mg 1-27 tablet by ity o f tablet 00:00: mouth 2 00 (two) Medical times Branch daily. furosemide 2021-0 Yes [id number] 20mg Take 1 Univers 20 mg 1-27 tablet by ity of tablet 00:00: mouth [place] 00 daily. Medical Branch levETIRAcet 2021-0 Yes [id number] 500mg Take 1 Univers am 500 mg 1-27 tablet by ity o f tablet 00:00: mouth 2 [place] 00 (two) Medical times Branch daily. furosemide 2022-0 Yes [id number] 20mg Take 1 Univers 20 mg 1-27 tablet by ity of tablet 00:00: mouth 00 daily. Medical Branch levETIRAcet 2021-0 Yes [id number] 500mg Take 1 Univers am 500 mg 1-27 tablet by ity o f tablet 00:00: mouth (two) Medical times Branch daily. levETIRAcet 2021-0 Yes [id number] 500mg Take 1 Univers am 500 mg 1-27 tablet by ity o f tablet 00:00: mouth (two) Medical times Branch daily. levETIRAcet 2021-0 Yes [id number] 500mg Take 1 Univers am 500 mg 1-27 tablet by ity o f tablet 00:00: mouth (two) Medical times Branch daily. levETIRAcet 2021-0 Yes [id number] 500mg Take 1 Univers am 500 mg 1-27 tablet by ity o f tablet 00:00: mouth (two) Medical times Branch daily. levETIRAcet 2021-0 Yes [id number] 500mg Take 1 Univers am 500 mg 1-27 tablet by ity o f tablet 00:00: mouth (two) Medical times Branch daily. levETIRAcet 2021-0 Yes [id number] 500mg Take 1 Univers am 500 mg 1-27 tablet by ity o f tablet 00:00: mouth (two) Medical times Branch daily. levETIRAcet 2021-0 Yes [id number] 500mg Take 1 Univers am 500 mg 1-27 tablet by ity o f tablet 00:00: mouth (two) Medical times Branch daily. levETIRAcet 2021-0 Yes [id number] 500mg Take 1 Univers am 500 mg 1-27 tablet by ity o f tablet 00:00: mouth (two) Medical times Branch daily. levETIRAcet 2-0 Yes [id number] 500mg Take 1 Univers am 500 mg 1-27 tablet by ity o f tablet 00:00: mouth (two) Medical times Branch daily. levETIRAcet 2-0 Yes [id number] 500mg Take 1 Univers am 500 mg 1-27 tablet by ity o f tablet 00:00: mouth 2 [place] 00 (two) Medical times Branch daily. levETIRAcet 2021-0 Yes [id number] 500mg Take 1 Univers am 500 mg 1-27 tablet by ity o f tablet 00:00: mouth (two) Medical times Branch daily. levETIRAcet 2021-0 Yes [id number] 500mg Take 1 Univers am 500 mg 1-27 tablet by ity o f tablet 00:00: mouth 2 (two) Medical times Branch daily. furosemide 2021-0 3- No [id number] 20mg Take 1 Univers 20 mg 1-27 02-19 tablet by ity of tablet 00:00: 00:00 mouth [place] 00 :00 daily. Medical Branch pantoprazol 0 Yes [id number] 40mg Take 1 Univers e 40 mg EC 1-21 tablet by ity of tablet 00:00: mouth 00 daily. Medical Branch pantoprazol 0 Yes [id number] 40mg Take 1 Univers e 40 mg EC 1-21 tablet by ity of tablet 00:00: mouth 00 daily. Medical Branch pantoprazol 0 Yes [id number] 40mg Take 1 Univers e 40 mg EC 1-21 tablet by ity of tablet 00:00: mouth 00 daily. Medical Branch pantoprazol 2021-0 Yes [id number] 40mg Take 1 Univers e 40 mg EC 1-21 tablet by ity of tablet 00:00: mouth [place] 00 daily. Medical Branch pantoprazol 2021-0 Yes [id number] 40mg Take 1 Univers e 40 mg EC 1-21 tablet by ity of tablet 00:00: mouth 00 daily. Medical Branch pantoprazol 2021-0 Yes [id number] 40mg Take 1 Univers e 40 mg EC 1-21 tablet by ity of tablet 00:00: mouth [place] 00 daily. Medical Branch pantoprazol 2021-0 Yes [id number] 40mg Take 1 Univers e 40 mg EC 1-21 tablet by ity of tablet 00:00: mouth [place] 00 daily. Medical Branch pantoprazol 2021-0 Yes [id number] 40mg Take 1 Univers e 40 mg EC 1-21 tablet by ity of tablet 00:00: mouth [place] 00 daily. Medical Branch pantoprazol 2021-0 Yes [id number] 40mg Take 1 Univers e 40 mg EC 1-21 tablet by ity of tablet 00:00: mouth [place] 00 daily. Medical Branch pantoprazol Yes [id number] 40mg Take 1 Univers e 40 mg EC 1-21 tablet by ity of tablet 00:00: mouth [place] 00 daily. Medical Branch pantoprazol Yes [id number] 40mg Take 1 Univers e 40 mg EC 1-21 tablet by ity of tablet 00:00: mouth [place] 00 daily. Medical Branch pantoprazol Yes [id number] 40mg Take 1 Univers e 40 mg EC 1-21 tablet by ity of tablet 00:00: mouth [place] 00 daily. Medical Branch pantoprazol Yes [id number] 40mg Take 1 Univers e 40 mg EC 1-21 tablet by ity of tablet 00:00: mouth [place] 00 daily. Medical Branch pantoprazol Yes [id number] 40mg Take 1 Univers e 40 mg EC 1-21 tablet by ity of tablet 00:00: mouth [place] 00 daily. Medical Branch atorvastati 2020-02 Yes [id number] 40mg Take 1 Univers n 40 mg 2-14 tablet by ity of tablet 00:00: mouth at [place] 00 bedtime. Medical Branch insulin 2020-02 Yes 8U inject 8 Univer s regular 2-14 Units ity of human 00:00: under the [place] (NOVOLIN R 00 skin Medical REGULAR daily. Branch U-100 Daily at [facility]) 100 noon unit/mL injection atorvastati 2020-02 Yes [id number] 40mg Take 1 Univers n 40 mg 2-14 tablet by ity of tablet 00:00: mouth at [place] 00 bedtime. Medical Branch insulin 2020-02 Yes 8U inject 8 Univer s regular 2-14 Units ity of human 00:00: under the [place] (NOVOLIN R 00 skin Medical REGULAR daily. Branch U-100 Daily at [facility]) 100 noon unit/mL injection atorvastati 2020-02 Yes [id number] 40mg Take 1 Univers n 40 mg 2-14 tablet by ity of tablet 00:00: mouth at [place] 00 bedtime. Medical Branch insulin 2020-02 Yes 8U inject 8 Univer s regular 2-14 Units ity of human 00:00: under the [place] (NOVOLIN R 00 skin Medical REGULAR daily. Branch U-100 Daily at [facility]) 100 noon unit/mL injection atorvastati 2020-02 Yes [id number] 40mg Take 1 Univers n 40 mg 2-14 tablet by ity of tablet 00:00: mouth at [place] [address] bedtime. Medical Branch atorvastati 2020-02 Yes [id number] 40mg Take 1 Univers n 40 mg 2-14 tablet by ity of tablet 00:00: mouth at [place] [address] bedtime. Medical Branch atorvastati 2020-02 Yes [id number] 40mg Take 1 Univers n 40 mg 2-14 tablet by ity of tablet 00:00: mouth at [place] [address] bedtime. Medical Branch atorvastati 2020-02 Yes [id number] 40mg Take 1 Univers n 40 mg 2-14 tablet by ity of tablet 00:00: mouth at [place] [address] bedtime. Medical Branch atorvastati 2020-02 Yes [id number] 40mg Take 1 Univers n 40 mg 2-14 tablet by ity of tablet 00:00: mouth at [place] [address] bedtime. Medical Branch atorvastati 2020-02 Yes [id number] 40mg Take 1 Univers n 40 mg 2-14 tablet by ity of tablet 00:00: mouth at [place] [address] bedtime. Medical Branch atorvastati 2020-02 Yes [id number] 40mg Take 1 Univers n 40 mg 2-14 tablet by ity of tablet 00:00: mouth at [place] [address] bedtime. Medical Branch atorvastati 2020-02 Yes [id number] 40mg Take 1 Univers n 40 mg 2-14 tablet by ity of tablet 00:00: mouth at [place] [address] bedtime. Medical Branch atorvastati 2020-02 Yes [id number] 40mg Take 1 Univers n 40 mg 2-14 tablet by ity of tablet 00:00: mouth at [place] [address] bedtime. Medical Branch atorvastati 2020-02 Yes [id number] 40mg Take 1 Univers n 40 mg 2-14 tablet by ity of tablet 00:00: mouth at [place] [address] bedtime. Medical Branch atorvastati 2020-02 Yes [id number] 40mg Take 1 Univers n 40 mg 2-14 tablet by ity of tablet 00:00: mouth at [place] [address] bedtime. Medical Branch insulin 2020-023- No 8U inject 8 Unive rs regular 2-14 02-19 Units ity of human 00:00: 00:00 under [...] Status Comments Sour e Immunization Name Name Influenza Virus 2022-03-16 [...] 2020-12-03 Completed University o f Polysaccharide, 00:00:00 [place] Med ical PPSV23 (PNEUMOVAX) Branch Influenza Virus [...] Completed Universit y of Conjugate, PCV13 00:00:00 [facility] dical (Prevnar 13) Branch Pneumococcal 13 2019-12-19 Completed Universit y of Conjugate, PCV13 00:00:00 [facility] dical (Prevnar 13) Branch Pneumococcal 13 2019-12-19 Completed Universit y of Conjugate, PCV13 00:00:00 [facility] dical (Prevnar 13) Branch Pneumococcal 13 2019-12-19 Completed Universit y of Conjugate, PCV13 00:00:00 [facility] dical (Prevnar 13) Branch Pneumococcal 13 2019-12-19 Completed Universit y of Conjugate, PCV13 00:00:00 [facility] dical (Prevnar 13) Branch Pneumococcal 13 2019-12-19 Completed Universit y of Conjugate, PCV13 00:00:00 [facility] dical (Prevnar 13) Branch Pneumococcal 13 [...] Universit y of Conjugate, PCV13 00:00:00 [place] [facility] dical (Prevnar 13) Branch Pneumococcal 13 2019-12-19 Completed Universit y of Conjugate, PCV13 00:00:00 [facility] dical (Prevnar 13) Branch Pneumococcal 13 2019-12-19 Completed Universit y of Conjugate, PCV13 00:00:00 [facility] dical (Prevnar 13) Branch Influenza Virus [...] Dosage 2018-03-25 Completed Unive rsity of 00:00:00 [place] [facility] HEP B, Adult Dosage 2018-03-25 Completed Unive rsity of 00:00:00 [facility] Branch HEP B, Adult Dosage 2018-03-25 Completed Unive rsity of 00:00:00 [facility] Branch HEP B, Adult Dosage 2018-03-25 Completed Unive rsity of 00:00:00 [place] [facility] HEP B, Adult Dosage 2018-03-25 Completed Unive rsity of 00:00:00 [place] [facility] HEP B, Adult Dosage 2018-03-25 Completed Unive rsity of 00:00:00 [place] [facility] HEP B, Adult Dosage 2018-03-25 Completed Unive rsity of 00:00:00 [place] [facility] HEP B, Adult Dosage 2018-03-25 Completed Unive rsity of 00:00:00 [facility] Branch HEP B, Adult Dosage 2018-03-25 Completed Unive rsity of 00:00:00 [place] [facility] HEP B, Adult Dosage 2018-03-25 [...] Dosage 2017-09-05 Completed Unive rsity of 00:00:00 [place] [facility] HEP B, Adult Dosage 2017-09-05 Completed Unive rsity of 00:00:00 [place] [facility] HEP B, Adult Dosage 2017-09-05 Completed Unive rsity of 00:00:00 [place] [facility] HEP B, Adult Dosage 2017-09-05 Completed Unive rsity of 00:00:00 [place] [facility] HEP B, Adult Dosage 2017-09-05 Completed Unive rsity of 00:00:00 [place] [facility] HEP B, Adult Dosage 2017-09-05 Completed Unive rsity of 00:00:00 [place] [facility] HEP B, Adult Dosage 2017-09-05 Completed Unive rsity of 00:00:00 [place] [facility] HEP B, Adult Dosage 2017-09-05 Completed Unive rsity of 00:00:00 [place] [facility] HEP B, Adult Dosage 2017-09-05 Completed Unive rsity of 00:00:00 [place] [facility] HEP B, Adult Dosage 2017-09-05 Completed Unive rsity of 00:00:00 [place] [facility] HEP B, Adult Dosage 2017-09-05 Completed Unive rsity of 00:00:00 [place] [facility] HEP B, Adult Dosage 2017-09-05 Completed Unive rsity of 00:00:00 [facility] Pneumococcal 13 2015-02-19 Completed [...] ical PPSV23 (PNEUMOVAX) Branch Pneumococcal 2011-02-19 Completed [place] o f Polysaccharide, 00:00:00 [place] Med ical PPSV23 (PNEUMOVAX) Branch Pneumococcal 2011-02-19 Completed [place] o f Polysaccharide, 00:00:00 [place] Med ical PPSV23 (PNEUMOVAX) Branch Vital Signs Vital Name Observation Time Observation Value Comments Source Systolic blood 2022-03-16 14:28:00 128 mm[Hg] Univer sity of pressure [facility] Diastolic blood 2022-03-16 14:28:00 70 mm[Hg] Unive rsity of [facility] Heart rate 2022-03-16 14:28:00 93 /min [facility] Body temperature 2022-03-16 14:28:00 35.67 Lizz [facility] [place] [facility] Res[facility] 2022-03-16 14:28:00 17 /min [facility] Body weight 2022-03-16 14:28:00 81.058 kg [facility] BMI 2022-03-16 14:28:00 34.90 kg/m2 [facility] Oxygen saturation in 2022-03-16 14:28:00 98 /min [facility] Arterial blood by [facility] Pulse oximetry Branch Systolic blood 2022-03-14 19:37:00 138 mm[Hg] Univer sity of pressure [facility] Diastolic blood 2022-03-14 19:37:00 87 mm[Hg] Unive rsity of pressure [facility] Heart rate 2022-03-14 19:37:00 94 /min [facility] Respiratory rate 2022-03-14 19:37:00 20 /min [facility] [place] [facility] Body height 2022-03-14 19:37:00 152.4 cm [facility] Body weight 2022-03-14 19:37:00 80.74 kg [facility] BMI 2022-03-14 19:37:00 34.76 kg/m2 Universi ty of [place] [facility] Oxygen saturation in 2022-03-14 19:37:00 99 /min University of Arterial blood by [facility] Pulse oximetry Branch Systolic blood 2022-02-28 14:57:00 130 mm[Hg] Univer sity of pressure [place] [facility] Diastolic blood 2022-02-28 14:57:00 83 mm[Hg] Unive rsity of pressure [place] [facility] Heart rate 2022-02-28 14:57:00 117 /min Universi ty of [place] [facility] Respiratory rate 2022-02-28 14:57:00 20 /min Univ ersity of [place] [facility] Body height 2022-02-28 14:57:00 152.4 cm Universi ty of [place] [facility] Body weight 2022-02-28 14:57:00 80.377 kg Universi ty of [place] [facility] BMI 2022-02-28 14:57:00 34.61 kg/m2 Universi ty of [place] [facility] Oxygen saturation in 2022-02-28 14:57:00 99 /min University of Arterial blood by [facility] Pulse oximetry Branch Systolic blood 2022-02-19 17:58:00 140 mm[Hg] Univer sity of pressure [place] [facility] Diastolic blood 2022-02-19 17:58:00 95 mm[Hg] Unive rsity of pressure [place] [facility] Heart rate 2022-02-19 17:58:00 115 /min Universi ty of [place] [facility] Body temperature 2022-02-19 13:46:00 36.78 Lizz Univ ersity of [place] [facility] Respiratory rate 2022-02-19 13:46:00 18 /min Univ ersity of [place] [facility] Oxygen saturation in 2022-02-19 13:46:00 94 /min University of Arterial blood by [facility] Pulse oximetry Branch Body weight 2022-02-18 10:44:00 83.462 kg Universi ty of [place] [facility] BMI 2022-02-18 10:44:00 35.94 kg/m2 Universi ty of [place] [facility] Systolic blood 2022-02-16 16:07:00 116 mm[Hg] Univer sity of pressure [place] [facility] Diastolic blood 2022-02-16 16:07:00 71 mm[Hg] Unive rsity of pressure [place] [facility] Heart rate 2022-02-16 16:07:00 85 /min [facility] Body temperature 2022-02-16 16:07:00 36.89 Lizz [facility] Respiratory rate 2022-02-16 16:07:00 17 /min [facility] Body weight 2022-02-16 16:07:00 84.823 kg [facility] BMI 2022-02-16 16:07:00 36.52 kg/m2 [facility] Oxygen saturation in 2022-02-16 16:07:00 96 /min [facility] Arterial blood by [facility] Pulse oximetry [place] Systolic blood 2021-10-05 15:13:00 152 mm[Hg] Univer sity [facility] Diastolic blood 2021-10-05 15:13:00 77 mm[Hg] Unive [facility] Body height 2021-10-05 15:12:00 152.4 cm [facility] Body weight 2021-10-05 15:12:00 88.315 kg [facility] BMI 2021-10-05 15:12:00 38.02 kg/m2 [facility] Procedures Procedure Date / Time Performing Clinician Source Performed AUTHORIZATION FOR RELEASE 2022-03-23 06:01:00 Doctor Unassigned, [facility] [place] [facility] FLU 2022-03-16 14:43:42 Kia [facility] VACC([id number]),65+YR,0.5 Medica l Branch ML,IM,ADJUVANTED,QUAD(FLU AD) POCT GLUCOSE (AUTOMATED) 2022-02-19 17:59:00 Brii Samson [facility] XR CHEST 2 VW 2022-02-19 16:23:57 Sriram Heath [facility] POCT GLUCOSE (AUTOMATED) 2022-02-19 13:45:00 Brii Samson [facility] MAGNESIUM 2022-02-19 12:23:00 Rocael Vaughan [facility] BASIC METABOLIC PANEL 2022-02-19 12:23:00 Rocael Vaughan [facility] (NA, K, CL, CO2, GLUCOSE, Medica l Branch BUN, CREATININE, CA) CBC WITH DIFF 2022-02-19 12:23:00 Rocael Vaughan [facility] N-TERMINAL PRO-BNP 2022-02-19 12:23:00 Rocael Vaughan [facility] POCT GLUCOSE (AUTOMATED) 2022-02-19 07:07:00 Brii Samson [facility] POCT GLUCOSE (AUTOMATED) 2022-02-19 06:10:00 OvMarcie youngi [facility] POCT GLUCOSE (AUTOMATED) 2022-02-19 03:34:00 OvBrii young [facility] POCT GLUCOSE (AUTOMATED) 2022-02-18 23:14:00 Brii Samson [facility] POCT GLUCOSE (AUTOMATED) 2022-02-18 17:29:00 Brii Samson [facility] POCT GLUCOSE (AUTOMATED) 2022-02-18 13:40:00 Marcie Samsoni [facility] BASIC METABOLIC PANEL 2022-02-18 10:53:00 Rocael Vaughan [facility] (NA, K, CL, CO2, GLUCOSE, Medica l Branch BUN, CREATININE, CA) LIPID PANEL ([id number])(TOTAL 2022-02-18 10:53:00 [facility] Branch TRIGLYCERIDES, HDL) CBC WITH DIFF 2022-02-18 10:53:00 Rocael Vaughan [facility] N-TERMINAL PRO-BNP 2022-02-18 10:53:00 Rocael Vaughan [facility] POCT GLUCOSE (AUTOMATED) 2022-02-18 02:34:00 Brii Samson [facility] POCT GLUCOSE (AUTOMATED) 2022-02-17 22:16:00 Marcie Samsoni [facility] POCT GLUCOSE (AUTOMATED) 2022-02-17 17:45:00 OvBrii young [facility] POCT GLUCOSE (AUTOMATED) 2022-02-17 14:01:00 [facility]TTE[facility] 2022-02-17 13:56:00 Chapin [facility] COMPLETE W/ CONTRAST Medical Bra nch MAGNESIUM 2022-02-17 09:47:00 Chapin [facility] BASIC METABOLIC PANEL 2022-02-17 09:47:00 Chapin [facility] (NA, K, CL, CO2, GLUCOSE, Medica l Branch BUN, CREATININE, CA) N-TERMINAL PRO-BNP 2022-02-17 09:47:00 Chapin [facility] POCT GLUCOSE (AUTOMATED) 2022-02-17 03:55:00 Chapin [facility] POCT GLUCOSE (AUTOMATED) 2022-02-17 03:16:00 Chapin [facility] URINALYSIS 2022-02-16 18:07:[address] [facility] XR CHEST 1 VW 2022-02-16 17:06:[address] [facility] LIPASE 2022-02-16 16:59:[address] [facility] TROPONIN I 2022-02-16 16:59:[address] [facility] HEPATIC FUNCTION PANEL 2022-02-16 16:59:00 Bird [facility] ([id number]) (ALB,T.PRO,BILI [facility] Branch T,BU/BC,ALT,AST,ALK PHOS) BASIC METABOLIC PANEL 2022-02-16 16:59:00 Bird [facility] (NA, K, CL, CO2, GLUCOSE, Medica l Branch BUN, CREATININE, CA) CBC WITH DIFF 2022-02-16 16:59:[address] [facility] GLYCOSYLATED HEMOGLOBIN 2022-02-16 16:59:00 Chapin [facility] (A1C) [facility] N-TERMINAL PRO-BNP 2022-02-16 16:59:00 Marina Pang [facility] COVID-19 (ID NOW RAPID 2022-02-16 16:59:00 Marina Pang [facility] TESTING) Medical Branch LAB ONLY COVID 2022-02-16 16:59:00 Marina Pang [place] [facility] [place] INTERPRETATION [facility] HB ECG ROUTINE & RHYTHM 2022-02-16 16:52:36 Marina Pang [facility] CONSENT/REFUSAL FOR 2022-02-16 16:40:37 Doctor Unassigned, [facility] DIAGNOSIS AND TREATMENT [place] [facility] POCT HEMOGLOBIN A1C TEST 2021-10-05 15:15:00 Amita Gomez [facility] Encounters Start End Encounter Admission Attending Care Care Encounter Source Date/Time Date/Time Type Type Clinicians Facility Department ID 2022-06-14 Outpatient Lamb, STLMLC [facility] [id number] Common 12:46:01 Elaine [address]83 [facility] 2022-06-02 [facility] [id number] Common 14:48:01 Elaine [id number] [facility] 2020-12-17 Emergency [facility] [id number] Univers 21:39:43 [facility] 2020-12-17 Inpatient U ITURRIZABRAZO [facility] [id number] Univers 18:26:55 alvino BARAKAT [facility] 2020-12-17 Emergency [facility] [id number] Univers 16:06:19 [facility] 2022-06-15 2022-06-15 Outpatient Moustapha ADAM [facility] [id number] Univers 09:00:00 09:00:00 SILVERIO [facility] 2022-04-27 2022-04-27 Outpatient Moustapha HEATH [facility] [id number] Univers 10:20:00 10:20:00 SRIRAM grove [facility] 2022-03-27 2022-03-27 Refill Kumar [facility] 1.2.840.114 [id number] Univers 00:00:00 00:00:00 Qiachaim PALOMO 350.1.13.10 [facility] [place] [id number] Ut dical NAL 059 [facility] 2022-03-23 2022-03-23 Orders Doctor YANA 1.2.840.114 [id number] Univers 00:00:00 00:00:00 Only Unassigned, CARLOS 350.1.13.10 ity of [facility] 4.2.7.2.686 Bernabe as [id number] [address] 2022-03-22 2022-03-22 Electrical Tech 2, Adc Lab [facility] 1.2.840.114 [id number] Univers 08:00:00 08:15:00 Visit Silverio Adam 350.1.13.10 ity [facility] 4.2.[place].2.[place] [id number] Ut dical NAL 353 [facility] 2022-03-22 2022-03-22 Outpatient R [facility] [id number] Univers 08:00:00 08:00:00 SILVERIO ity of [facility] 2022-03-16 2022-03-16 Outpatient R [facility] [id number] Univers 08:40:00 09:58:33 SILVERIO ity [facility] 2022-03-16 2022-03-16 Office [facility] 1.2.840.114 [id number] Univers 08:40:00 09:00:00 Visit Silverio PALOMO 350.1.13.10 i ty of [facility] 4.2.7.2.[place] [id number] Ut dical NAL 059 [facility] 2022-03-14 2022-03-14 Office [facility] 1.2.840.114 [id number] Univers 13:40:00 14:00:00 Visit Sriram PAL[place]O 350.1.13.10 ity [facility] 4.2.[place].2.[place] [id number] Ut dical NAL 059 [facility] 2022-03-142022-03-14 Outpatient R KUMAR, [facility] [id number] Univers 13:40:00 13:40:00 SRIRAM de oliveira o f [facility] 2022-03-09 2022-03-09 Outpatient R KIA, [facility] [id number] Univers 09:59:09 23:59:00 SILVERIO ity of [facility] 2022-02-28 2022-02-28 Outpatient R KUMAR, [facility] [id number] Univers 09:00:00 09:16:53 SRIRAM de oliveira o f [facility] 2022-02-28 2022-02-28 [facility] 1.2.840.114 [id number] Univers 09:00:00 09:16:53 Visit Sriram [place] 350.1.13.10 ity of [place].7.2.[place] [id number] [facility] 0[address] Branch [facility] 2022-02-21 2022-02-21 Transition JONO Galvan 1.2.840.114 [id number] Univers 00:00:00 00:00:00 of Care Nara MG 350.1.13.10 it y of [place]2.7.2.[place] [id number] [facility] 403 [address] 2022-02-16 2022-02-19 Inpatient X CHAPIN [facility] SAMI [id number] Univers 10:48:00 16:07:00 BRII ity of [facility] 2022-02-16 2022-02-19 [facility] Stephen PangeLeilani [facility] 1.2.840.11 [id number] Univers 10:48:00 16:07:00 Encounter Marcie Samsonkhadar [place] 350.1.13.10 it[place] of [place].2.[place] CAMPUS [id number] [facility] 081 Branch 2022-02-16 2022-02-16 Fang Govea [facility] 1.2.840.114 [id number] Univers 09:45:00 10:05:00 Care Unknown, Attending HEALTH 350.1.13.10 ity of [place] 4.2.7.2.686 Bernabe as HUMPHREY?BLEA [id number] [facility] [address] MEDICAL OFFICE BUILDING 2022-02-16 2022-02-16 Outpatient R CASSI [facility] [id number] Univers 09:45:00 09:45:00 FANG de oliveira [facility] 2022-01-31 2022-01-31 Outpatient R KUMAR, [facility] [id number] Univers 14:20:00 14:20:00 SRIRAM grove [facility] 2022-01-31 2022-01-31 Outpatient R KUMAR, [facility] [id number] Univers 14:20:00 14:20:00 SRIRAM de oliveira o maine [facility] 2021-12-02 2021-12-02 Outpatient R KIA [facility] [id number] Univers 10:20:00 10:20:00 [facility] 2021-11-25 2021-11-25 Outpatient R KIA [facility] [id number] Univers 10:20:00 10:20:00 [facility] 2021-11-25 2021-11-25 Outpatient R KIA [facility] [id number] Univers 10:20:00 10:20:00 [facility] 2021-10-05 2021-10-05 Outpatient R AMITA GOMEZ [facility] [id number] Univers 10:30:00 11:22:11 AMITA GOMEZ [facility] 2021-10-05 2021-10-05 Office Amita Gomez [facility] 1.2.840.114 [id number] Univers 10:30:00 11:22:11 Visit HEALTH 350.1.13.10 it y of [place] 4.2.7.2.686 Bernabe as HUMPHREY?BLEA [id number] [facility] [address] MEDICAL OFFICE BUILDING 2021-09-21 2021-09-21 Telephone [facility] 1.2.087.845 [id number] Univers 00:00:00 00:00:00 Wentong HEALTH 350.1.13.10 it y of [place] 4.2.7.2.686 Bernabe as HUMPHREY?BLEA [id number] Ut dical KNEY [address] MEDICAL OFFICE BUILDING 2021-08-19 2021-08-19 Outpatient R SEWANI, [facility] [id number] Univers 11:20:00 11:20:00 SILVERIO [facility] 2021-08-16 2021-08-16 Outpatient R CASTLE, [facility] [id number] Univers 13:00:00 13:00:00 WENTONG [facility] 2021-08-01 2021-08-01 Office Kumar, [facility] 1.2.840.114 [id number] Univers 13:40:00 14:02:37 Visit Sriram [place] 350.1.13.10 ity jarek [place] [id number] [address] 2021-08-01 2021-08-01 Outpatient R KUMAR, [facility] [id number] Univers 13:40:00 14:02:37 QIACHAIM ity o [facility] 2021-08-01 2021-08-01 Outpatient R KUMAR, [facility] [id number] Univers 13:40:00 13:40:00 QIANGJUN ity o [facility] 2021-08-01 2021-08-01 Outpatient R KUMAR, [facility] [id number] Univers 13:40:00 13:40:00 QIANGJUN ity o [facility] 2021-08-01 2021-08-01 Outpatient R KUMAR, [facility] [id number] Univers 13:40:00 13:40:00 QIANGJUN ity o [facility] 2021-08-01 2021-08-01 Outpatient R KUMAR, [facility] [id number] Univers 13:40:00 13:40:00 QIANGJUN ity o [facility] 2021-07-22 2021-07-22 Refill Kumar, [facility] 1.2.840.114 [id number] Univers 00:00:00 00:00:00 Sriram [place] 350.1.13.10 ity jarek [place] [phone] Ut dic[address] 2021-06-24 2021-06-24 Outpatient R KIA [facility] [id number] Univers 10:00:00 10:46:29 [facility] 2021-06-24 2021-06-24 Office [facility] 1.2.840.114 [id number] Univers 10:00:00 10:20:00 Visit Silverio PAL[place] 350.1.13.10 i ty of [place] 4.2.7.2.686 Bernabelauryn CALIXTOMANUELA [id number] [address] 2021-06-24 2021-06-24 Outpatient R KIA [facility] [id number] Univers 10:00:00 10:00:00 [facility] 2021-06-24 2021-06-24 Outpatient R [facility] [id number] Univers 10:00:00 10:00:00 [facility] 2021-06-10 2021-06-10 Outpatient R KIA [facility] [id number] Univers 10:46:49 23:59:00 [facility] 2021-05-23 2021-05-23 Outpatient R KUMAR, [facility] [id number] Univers 15:00:00 15:00:00 SRIRAM diamond [facility] 2021-05-04 2021-05-04 Outpatient R KUMAR, [facility] [id number] Univers 08:00:00 23:59:00 SRIRAM de oliveira o [facility] 2021-05-04 2021-05-04 Outpatient R KUMAR, [facility] [id number] Univers 08:00:00 08:00:00 SRIRAM de oliveira o [facility] 2021-04-28 2021-04-28 Outpatient R BROOKS [facility] [id number] Univers 13:00:00 14:03:10 DIANN [facility] 2021-04-28 2021-04-28 Office [facility] .[id number] Univers 13:00:00 14:03:10 Visit Diann DEWEY 350.1.13.10 i ty [facility] [place].2.7.2.686 [place] [facility] [id number] Ut dical NAL [address] [facility] 2021-04-22 2021-04-22 Outpatient Moustapha TRIMBLEShweta MITCHELL [facility] [id number] Univers 15:40:00 15:40:00 MITCHELL GARCIA kelsie [facility] 2021-04-22 2021-04-22 Outpatient Moustapha JOSEMITCHELL Rock [facility] [id number] Univers 15:40:00 15:40:00 MITCHELL GARCIA kelsie [facility] 2021-04-22 2021-04-22 Outpatient Moustapha JOSEMITCHELL Rock [facility] [id number] Univers 15:40:00 15:40:00 MITCHELL GARCIA [facility] 2021-04-18 2021-04-19 Emergency X [facility] ERT [id number] Univers 22:42:00 02:27:00 BERNIEUSHO ity [facility] 2021-04-18 2021-04-19 Emergency [facility] 1.2.840.114 [id number] Univers 22:42:00 02:27:00 Celia PAL[place]O 350.1.13.10 ity [facility] [place].2.7.2.[place] [id number] [facility] [address] 2021-04-18 2021-04-19 Emergency [facility] ERT [id number] Univers 22:42:00 02:27:00 FOLUSHO ity [facility] 2021-04-18 2021-04-18 Orders Doctor MILLAN 1.2.840.114 [id number] Univers 00:00:00 00:00:00 Only Unassigned, CARLOS 350.1.13.10 ity of [place] [facility] 4.2.7.2.686 Bernabe as [id number] [facility] [address] 2021-04-15 2021-04-15 [facility] 1.2.660.326 [id number] Univers 12:42:22 23:59:00 Encounter Clare PALOMO 350.1.13.10 ity of [place] 4.2.7.2.686 [place] [id number] [facility] [address] 2021-04-15 2021-04-15 Outpatient R KUMAR [facility] [id number] Univers 10:00:00 10:33:44 SRIRAM ity o f [facility] 2021-04-15 2021-04-15 Office Kumar, [facility] 1.2.840.114 [id number] Univers 10:00:00 10:33:44 Visit Sriram [place] 350.1.13.10 ity [facility] 4.2.7.2.[place] [facility] [phone] Ut dical NAL 059 Branch BUILDING 2021-04-15 2021-04-15 Outpatient R KUMAR [facility] [id number] Univers 10:00:00 10:33:44 SRIRAM de oliveira o [facility] 2021-04-15 2021-04-15 Outpatient R MAJOR [facility] [id number] Univers 00:00:00 00:00:00 WONDIFUL martyy o f [facility] 2021-04-15 2021-04-15 Orders Doctor MILLAN 1.2.840.114 [id number] Univers 00:00:00 00:00:00 Only Unassigned, CARLOS 350.1.13.10 [facility] 4.2.7.2.686 Bernabe as [id number] [facility] [address] 2021-04-13 2021-04-13 Outpatient R TIN [facility] [id number] Univers 10:00:00 11:12:56 [facility] 2021-04-13 2021-04-13 Office Tin, [facility] 1.2.840.114 [id number] Univers 10:00:00 11:12:56 Visit [facility] 350.1.13.10 it y of [place] 4.2.7.2.686 Bernabe as HUMPHREY?BLEA [id number] Ut dical KNEY [address] MEDICAL OFFICE BUILDING 2021-04-13 2021-04-13 Outpatient R TIN [facility] [id number] Univers 10:00:00 11:12:56 WENTONG ity [facility] 2021-04-13 2021-04-13 Outpatient R CASTLE [facility] [id number] Univers 10:00:00 10:00:00 WENTONG ity of [facility] 2021-04-13 2021-04-13 Outpatient R TIN [facility] [id number] Univers 10:00:00 10:00:00 WENTONG ity of [facility] 2021-04-13 2021-04-13 Outpatient R CASTLE [facility] [id number] Univers 10:00:00 10:00:00 WENTONG ity [facility] 2021-04-12 2021-04-12 Nurse YANA Sanders [id number] [id number] Univers 00:00:00 00:00:00 Triage Luis Alberto CARLOS 350.1.13.10 it y of [facility] 4.2.7.2.686 Bernabe as [id number] [address] 2021-04-07 2021-04-07 [facility]phone [facility] 1.2.473.632 [id number] Univers 00:00:00 00:00:00 Sriram [place] 350.1.13.10 ity of [place] 4.2.7.2.[place] [id number] Ut dical NAL [address] [place] [address] 2021-04-01 2021-04-01 Outpatient R KIA [facility] [id number] Univers 10:00:00 10:40:52 SILVERIO ity [facility] 2021-04-01 2021-04-01 Office [facility] 1.2.840.114 [id number] Univers 10:00:00 10:40:52 Visit Silverio [place] 350.1.13.10 i ty of [place] 4.2.7.2.[place] [id number] Ut dical NAL [address] [place] [address] 2021-03-30 2021-03-30 Telephone [facility] 1.2.840.114 [id number] Univers 00:00:00 00:00:00 [facility] 350.1.13.10 ity of [place] 4.2.7.2.686 Bernabe as HUMPHREY?BLEA [phone] Me dical [address] OFFICE [facility] 2021-03-30 2021-03-30 Telephone Jose [facility] 1.2.840.114 [id number] Univers 00:00:00 00:00:00 [facility] 350.1.13.10 ity [facility] 4.2.7.2.686 Bernabe as HUMPHREY?ARLETTE [id number] [address] OFFICE [facility] 2021-03-29 2021-03-29 Outpatient MITCHELL TORRES [facility] [id number] Univers 08:00:00 09:38:08 JOSE MITCHELL kelsie [facility] 2021-03-29 2021-03-29 Outpatient MITCHELL TORRES [facility] [id number] Univers 08:00:00 09:38:08 MITCHELL GARCIA kelsie [facility] 2021-03-29 2021-03-29 Outpatient MITCHELL TORRES [facility] [id number] Univers 08:00:00 08:00:00 MITCHELL GARCIA [facility] 2021-03-29 2021-03-29 Orders Doctor MILLAN 1.2.840.114 [id number] Univers 00:00:00 00:00:00 Only Unassigned, CARLOS 350.1.13.10 ity of [facility] 4.2.7.2.686 Bernabe as [id number] [address] 2021-03-23 2021-03-23 Outpatient Moustapha HEATH [facility] [id number] Univers 15:40:00 16:06:08 SRIRAM de oliveira o f [facility] 2021-03-23 2021-03-23 Office [facility] 1.2.840.114 [id number] Univers 15:40:00 16:06:08 Visit Sriram [place] 350.1.13.10 ity [facility] 4.2.7.2.[place] [id number] Ut jamilahelinor [facility] 059 [facility] 2021-03-23 2021-03-23 Outpatient Moustapha HEATH [facility] [id number] Univers 16:00:00 16:00:00 SRIRAM de oliveira o f [facility] 2021-03-22 2021-03-22 Telephone [facility] 1.2.840.114 [id number] Univers 00:00:00 00:00:00 Diann DEWEY 350.1.13.10 i ty of [place] 4.2.7.2.686 [place] [id number] Ut dical NAL 188 [facility] 2021-03-21 2021-03-21 Electrical [employer] [place], Adc Lab Main [facility] 1.2.8 40.114 [id number] Univers 14:45:00 15:00:00 Visit Bridget Dorsey[facility] 350.1 .13.10 ity of [place] 4.2.7.2.[place] [id number] [facility] 353 [facility] 2021-03-21 2021-03-21 Outpatient R [facility] [id number] Univers 14:45:00 14:45:00 [facility] 2021-03-21 2021-03-21 Outpatient R [facility] [id number] Univers 14:45:00 14:45:00 [facility] 2021-03-21 2021-03-21 Orders Doctor YANA 1.2.840.114 [id number] Univers 00:00:00 00:00:00 Only Unassigned, CARLOS 350.1.13.10 ity of [place] [facility] 4.2.7.2.686 Bernabe as [id number] [facility] [address] 2021-03-21 2021-03-21 Telephone HiramclemenciarussellGLENNA 1.2.840.114 [id number] Univers 00:00:00 00:00:00 [facility] 350.1.13.10 i ty of [facility] 4.2.7.2.[place] [id number] [facility] [address] 2021-03-20 2021-03-20 Nurse YANA Bautista 1.2.840.114 [id number] Univers 00:00:00 00:00:00 Triage Cielo CARLOS 350.1.13.10 it y of [facility]ITAL 4.2.7.2.686 Bernabe as [id number] [facility] [address] 2021-03-18 2021-03-18 Emergency [facility] 1.2.840.114 [id number] Univers 17:02:00 22:45:00 Ananya PALOM[place] 350.1.13.10 ity of [place] 4.2.7.2.686 [place] [id number] [facility] [address] 2021-03-18 2021-03-18 Emergency [facility] ERT [id number] Univers 17:02:00 17:02:00 ANANYA itkelsie [facility] 2021-03-18 2021-03-18 Emergency X [facility] ERT [id number] Univers 16:34:00 16:34:00 itkelsie [facility] 2021-03-18 2021-03-18 Outpatient R EPI [facility] [id number] Univers 15:00:00 16:15:48 JENNIE martykelsie [facility] 2021-03-18 2021-03-18 Office [facility] 1.2.840.114 [id number] Univers 15:00:00 16:15:48 Visit [facility] 350.1.13.10 it y of [place] 4.2.7.2.686 Bernabe as HUMPHREY?BLEA [phone] [address] MEDICAL OFFICE BUILDING 2021-03-18 2021-03-18 Outpatient [facility] ERT [id number] Univers 15:00:00 16:15:48 JENNIE alvino [facility] 2021-03-18 2021-03-18 Outpatient R EPI [facility] [id number] Univers 15:00:00 16:15:48 [facility]-18 2021-03-18 Transition JONO Galvan 1.2.840.114 [id number] Univers 00:00:00 00:00:00 of Care Nara MG 350.1.13.10 it y [facility] 4.[place].2.[place] [id number] [facility] [address] 2021-03-12 2021-03-17 Inpatient X [facility] [id number] Univers 12:11:00 15:43:00 [facility] 2021-03-12 2021-03-17 Hospital AaronDamien nieto 1.2.840 .114 [id number] Univers 12:11:00 15:43:00 Encounter Soni Hunter vahina CARLOS 350.1.13.10 ity of [facility] 4.2.7.2.686 [place] [phone] [facility] [address] 2021-03-12 2021-03-17 Inpatient X [facility] [id number] Univers 12:11:00 15:43:00 [facility] ity [facility] 2021-03-17 2021-03-17 Nurse Esperanza Cronin 1.2.840.114 [id number] Univers 00:00:00 00:00:00 Triage CARLOS 350.1.13.10 it y of [facility] 4.2.7.2.686 Bernabe as [phone] [facility] [address] 2021-03-16 2021-03-16 Case Willian, UNIVERSIT 1.2.840.114 [id number] Univers 00:00:00 00:00:00 Management [place] Y HEALTH 350.1.13.10 ity of [facility] [place] [id number] [facility] [address] 2021-03-16 2021-03-16 Case Willian, UNIVERSIT 1.2.840.114 [id number] Univers 00:00:00 00:00:00 Management [place] Y HEALTH 350.1.13.10 ity of [facility] [place] [phone] [facility] [address] 2021-03-11 2021-03-11 Transition JONO Galvan 1.2.840.114 [id number] Univers 00:00:00 00:00:00 of Care Nara CASEYY 350.1.13.10 it [place] [id number] [facility] [address] 2021-03-11 2021-03-11 [facility] 1.2.024.792 [id number] Univers 00:00:00 00:00:00 Sriram PALOMO 350.1.13.10 ity [facility] [place] [phone] Ut dical NAL 059 [facility] 2021-03-07 2021-03-10 Outpatient X ANUJ GONZALES LEA [facility] SAMI [id number] Univers 08:28:00 14:20:00 ity of [facility] 2021-03-07 2021-03-10 Emergency Hudson Wolfe 1.2.840. 114 [id number] Univers 08:28:00 14:20:00 Anuj Gonzales Leslie RENEE 350.1.13.1 0 ity [facility] 4.2.7.2.686 Bernabe as [phone] [facility] [address] 2021-03-07 2021-03-10 Outpatient X ANUJ GONZALES [facility] SAMI [id number] Univers 08:28:00 14:20:00 ity of [facility] 2021-03-09 2021-03-09 Surgery Misael Castro [facility] 1.2.840.114 [id number] Univers 09:36:00 10:16:00 David ABBASI 350.1.13.10 it y of [place] 4.2.7.2.686 Bernabe as BLDG [phone] [facility] 020 Branch 2021-03-03 2021-03-03 Outpatient R [facility] [id number] Univers 14:00:00 14:44:31 SHANTEL ity [facility] 2021-03-03 2021-03-03 [facility] 1.2.840.114 [id number] Univers 14:00:00 14:44:31 Visit Shantel PALOMO 350.1.13.10 ity [facility] 4.2.7.2.686 [place] [phone] Ut dical NAL 188 [facility] 2021-03-03 2021-03-03 Outpatient R BROOKS [facility] [id number] Univers 14:00:00 14:00:00 DIANN ity [facility] 2021-02-08 2021-02-08 Office Sabina Barba [facility] 1.2.840.114 [id number] Univers 15:30:00 16:44:10 Visit KHLOE 350.1.13.10 it y of [place] HE[place] [phone] [address] 2021-02-08 2021-02-08 Outpatient R SABINA BARBA [facility] [id number] Univers 15:30:00 16:44:10 ity [facility] 2021-02-08 2021-02-08 Outpatient R SABINA BARBA [facility] [id number] Univers 15:30:00 16:44:10 ity [facility] 2021-02-08 2021-02-08 Outpatient R SABINA BARBA [facility] [id number] Univers 15:30:00 15:30:00 ity [facility] 2021-02-08 2021-02-08 Outpatient R SABINA BARBA [facility] [id number] Univers 15:30:00 15:30:00 [facility] 2021-02-03 2021-02-03 [facility] 1.2.840.114 [id number] Univers 00:00:00 00:00:00 Management Wondiful A HEALTH 350.1.13.10 ity of [place] 4.2.7.2.686 Bernabe as HUMPHREY?BLEA [phone] [facility] [address] MEDICAL OFFICE BUILDING 2021-02-01 2021-02-01 Office [facility] 1.2.840.114 [id number] Univers 15:30:00 16:58:42 Visit Ericka HEALTH 350.1.13.10 it y of [place] 4.2.7.2.686 Bernabe as HUMPHREY?BLEA [id number] [facility] [address] MEDICAL OFFICE BUILDING 2021-02-01 2021-02-01 Outpatient R [facility] [id number] Univers 15:30:00 16:58:42 ERICKA ity [facility] 2021-02-012021-02-01 Outpatient R MEKA [facility] [id number] Univers 16:30:00 16:30:00 ERICKA kelsie [facility] 2021-02-01 2021-02-01 Electrical Tech Lab, Royal Hardin [facility] 1.2.840.1 14 [id number] Univers 16:02:42 16:17:42 [facility] 350.1.13.10 ity of [facility] 4.2.7.2.686 Bernabe as HUMPHREY?BLEA [phone] [address] OFFICE [facility] 2021-02-01 2021-02-01 Outpatient R MEKA [facility] [id number] Univers 15:30:00 15:30:00 ERICKA [facility] 2021-01-31 2021-01-31 Outpatient R [facility] [id number] Univers 13:40:00 13:44:29 [facility] 2021-01-31 2021-01-31 Outpatient R [facility] [id number] Univers 13:40:00 13:44:29 SRIRAM [facility] 2021-01-31 2021-01-31 Office [facility] 1.2.840.114 [id number] Univers 13:18:52 13:44:29 [facility] 350.1.13.10 ity of [place] 4.2.7.2.686 [place] PROFESS[place] [phone] [facility] 059 [facility] 2021-01-31 2021-01-31 Outpatient R [facility] [id number] Univers 13:40:00 13:40:00 SRIRAM y o [facility] 2021-01-31 2021-01-31 Electrical Tech Lab, Royal - Wilfred [facility] 1.2.840.1 14 [id number] Univers 10:03:00 10:18:00 Visit Dimitri [facility] 350.1.13.10 ity of [facility] 4.2.7.2.686 Bernabe as HUMPHREY?BLEA [phone] [address] MEDICAL OFFICE [facility] 2021-01-31 2021-01-31 Office [facility] 1.2.840.114 [id number] Univers 09:22:40 10:03:18 Visit Wondiful A HEALTH 350.1.13.10 ity of [place] 4.2.7.2.686 Bernabe as HUMPHREY?BLEA [phone] Ut sherif [place] [address] MEDICAL OFFICE [facility] 2021-01-31 2021-01-31 Outpatient R [facility] [id number] Univers 09:30:00 09:30:00 WONDIFUL ity o f [facility] 2021-01-11 2021-01-11 Case [facility] 1.2.840.114 [id number] Univers 00:00:00 00:00:00 Management Wondiful A HEALTH 350.1.13.10 ity of [place] 4.2.7.2.686 Bernabe as HUMPHREY?BLEA [phone] Ut sherif [place] [address] MEDICAL OFFICE [facility] 2021-01-07 2021-01-07 Outpatient R [facility] [id number] Univers 16:30:00 23:59:00 WONDIFUL ity o f [facility] 2021-01-07 2021-01-[address] [facility] 1.2.801.044 [id number] Univers 16:30:00 23:59:00 Encounter Wondiful A HEALTH 350.1.13.10 ity of [place] 4.2.7.2.686 Bernabe as HUMPHREY?BLEA [phone] Ut sherif [place] [address] MEDICAL OFFICE [facility] 2021-01-07 2021-01-07 Electrical Tech Lab, Ang - Db [facility] 1.2.840.1 14 [id number] Univers 16:36:52 16:51:52 Visit Clare Gonsalves A HEALTH 350.1.13.1 0 ity of [place] 4.2.7.2.686 Bernabe as HUMPHREY?BLEA [phone] Ut sherif HO[place] [address] MEDICAL OFFICE BUILDING 2021-01-07 2021-01-07 Outpatient R [facility] [id number] Univers 16:15:00 16:37:00 WONDIFUL ity o f [facility] 2021-01-07 2021-01-07 Office [facility] 1.2.840.114 [id number] Univers 15:34:25 16:37:00 Visit Wondiful A HEALTH 350.1.13.10 ity of [place] 4.2.7.2.686 Bernabe as HUMPHREY?BLEA [phone] [address] MEDICAL OFFICE [facility] 2021-01-05 2021-01-[address] [facility] 1.2.840.114 [id number] Univers 00:00:00 00:00:00 Wondiful A HEALTH 350.1.13.10 ity of [place] 4.2.7.2.686 Bernabe as HUMPHREY?BLEA [phone] [address] OFFICE [facility] 2020-12-28 2020-12-28 Outpatient R KIA [facility] [id number] Univers 14:00:00 14:00:00 SILVERIO ity of [facility] 2020-12-27 2020-12-27 Outpatient R MAJOR [facility] [id number] Univers 13:14:51 23:59:00 WONDIFUL ity o f [facility] 2020-12-27 2020-12-27 [facility] 1.2.004.814 [id number] Univers 13:00:00 23:59:00 Encounter Wondiful A [place] 350.1.13.10 ity of [place] 4.2.7.2.686 [place] [facility] [id number] [address] 2020-12-27 2020-12-27 Outpatient R [facility] [id number] Univers 00:00:00 00:00:00 WONDIFUL ity o f [facility] 2020-12-13 2020-12-13 Telephone [facility] 1.2.840.114 [id number] Univers 00:00:00 00:00:00 Wondiful A Health 350.1.13.10 ity of [place] 4.2.7.2.686 Bernabe as Humphrey?Blea [phone] [address] Medical Office [facility] 2020-12-132020-12-13 Telephone Major DARYL 1.2.840.114 [id number] Univers 00:00:00 00:00:00 Wondiful A Health 350.1.13.10 ity of [place] 4.2.7.2.686 Bernabe as Humphrey?Blea [phone] [address] Office [facility] 2020-12-06 2020-12-06 Telephone Major DARYL 1.2.840.114 [id number] Univers 00:00:00 00:00:00 Wondiful A Health 350.1.13.10 ity of [place] 4.2.7.2.686 Bernabe as Humphrey?Blea [phone] [address] 2020-12-03 2020-12-03 Electrical Tech Lab, Ang - Db [facility] 1.2.840.1 14 [id number] Univers 16:48:38 17:03:11 Visit Clare Gonsalves Health 350.1.13.1 0 ity of [place] 4.2.7.2.686 Bernabe as Humphrey?Blea [id number] [address] Office [facility] 2020-12-03 2020-12-03 Electrical Tech Lab, Ang - Db [facility] 1.2.840.1 14 [id number] Univers 16:48:38 17:03:11 Visit Clare Gonsalves Health 350.1.13.1 0 ity of [place] 4.2.7.2.686 Bernabe as Humphrey?Blea [phone] [address] Office [facility] 2020-12-03 2020-12-03 Electrical Tech Lab, Ang - Db [facility] 1.2.840.1 14 [id number] Univers 16:48:38 17:03:11 Visit Clare Gonsalves HEALTH 350.1.13.1 0 ity of [place] 4.2.7.2.686 Bernabe as HUMPHREY?BLEA [phone] [address] OFFICE [facility] 2020-12-03 2020-12-03 Office JAYNE GonsalvesMB 1.2.840.114 [id number] Univers 15:32:14 16:49:03 Visit Wondiful A Health 350.1.13.10 ity of [place] 4.2.7.2.686 Bernabe as Humphrey?Blea [phone] Ut sherif kney 044 [facility] Office [facility] 2020-12-03 2020-12-03 Outpatient R MAJOR [facility] [id number] Univers 15:45:00 15:45:00 WONDIFUL ity o f [facility] 2020-11-23 2020-11-23 Office [facility] 1.2.840.114 [id number] Univers 09:49:05 10:43:01 Visit Silverio [place] 350.1.13.10 i ty of [place] 4.2.7.2.686 [place] Profess[place] [phone] [address] 2020-11-23 2020-11-23 Outpatient R KIA [facility] [id number] Univers 10:00:00 10:00:00 SILVERIO ity of [facility] 2020-11-15 2020-11-15 Refisra [facility] 1.2.840.114 [id number] Univers 00:00:00 00:00:00 Qiangjun [place] 350.1.13.10 ity of [place] 4.2.7.2.686 [place] [phone] [address] 2020-11-15 2020-11-15 Refis[facility] 1.2.840.114 [id number] Univers 00:00:00 00:00:00 Wondiful A [place] 350.1.13.10 ity of [place] 4.2.7.2.686 [place] Profess[place] [phone] [address] 2020-11-11 2020-11-11 Cali [facility] 1.2.840.114 [id number] Univers 00:00:00 00:00:00 Wondiful A Health 350.1.13.10 ity of [place] 4.2.7.2.686 Bernabe as Professio [phone] [address] One 2020-10-05 2020-10-05 Refis[facility] 1.2.840.114 [id number] Univers 00:00:00 00:00:00 Wondiful A Health 350.1.13.10 ity of [place] 4.2.7.2.686 Bernabe as Professio [phone] [address] 2020-10-04 2020-10-04 Orders Doctor YANA 1.2.840.114 [id number] Univers 00:00:00 00:00:00 Only Unassigned, CARLOS 350.1.13.10 ity of [place] [facility] 4.2.7.2.686 Bernabe as [phone] [address] 2020-09-24 2020-09-24 Refis[facility] 1.2.840.114 [id number] Univers 00:00:00 00:00:00 Wondiful A Health 350.1.13.10 ity of [place] 4.2.7.2.686 Bernabe as Professio [phone] [facility] 0[address] [facility] 2020-09-09 2020-09-09 Cali Heath [facility] 1.2.840.114 [id number] Univers 00:00:00 00:00:00 Qiangjun [place] 350.1.13.10 ity of [place] 4.2.7.2.686 [place] [phone] [facility] 059 [facility] 2020-09-03 2020-09-03 Refisra [facility] 1.2.840.114 [id number] Univers 00:00:00 00:00:00 Wondiful A Health 350.1.13.10 ity of [place] 4.2.7.2.686 Bernabe as Professio [phone] [address] 2020-07-27 2020-07-27 Outpatient R KIA MNJENNI [facility] [id number] Univers 10:20:00 10:20:00 SILVERIO ity of [facility] 2020-07-27 2020-07-27 Office Kia MNJENNI 1.2.840.114 [id number] Univers 09:56:55 10:16:55 [facility] 350.1.13.10 i ty of [place] 4.2.7.2.686 [place] [phone] [facility] 059 [facility] 2020-07-13 2020-07-13 Orders Doctor YANA 1.2.840.114 [id number] Univers 00:00:00 00:00:00 Only Unassigned, CARLOS 350.1.13.10 [facility] 4.2.7.2.686 Bernabe as [phone] [address] 2020-07-08 2020-07-08 Refisra Gonsalves [facility] 1.2.840.114 [id number] Univers 00:00:00 00:00:00 Wondiful A Health 350.1.13.10 ity of [place] 4.2.7.2.686 Bernabe as Professio [phone] [facility] [address] Office Building One 2020-06-29 2020-06-29 Outpatient R [facility] [id number] Univers 10:30:00 10:30:00 ity [facility] 2020-06-29 2020-06-29 Outpatient R [facility] [id number] Univers 10:30:00 10:30:00 SILVERIO ity [facility] 2020-06-07 2020-06-07 Office [facility] 1.2.840.114 [id number] Univers 13:02:14 13:29:23 Visit Sriram [place] 350.1.13.10 ity of [place] 4.2.7.2.686 [place] Profess[place] [phone] [facility] 059 [facility] 2020-06-07 2020-06-07 Outpatient R [facility] [id number] Univers 13:00:00 13:00:00 SRIRAM de oliveira o [facility] 2020-06-02 2020-06-02 Outpatient R DEE [facility] [id number] Univers 19:20:00 19:20:00 VIRI de oliveira o [facility] 2020-06-02 2020-06-02 Laboratory Lab, Adc Fam Pob I [facility] 1.2. 840.114 [id number] Univers 18:38:28 18:58:28 Only [facility] 350.1.13.10 ity of [place] 4.2.7.2.686 [place] Professio [phone] [address] Office [facility] One 2020-06-02 2020-06-02 Letter Doctor YANA 1.2.840.114 [id number] Univers 00:00:00 00:00:00 (Out) Unassigned, CARLOS 350.1.13.10 ity of [place] [facility] 4.2.7.2.686 Bernabe as [phone] [address] 2020-06-02 2020-06-02 Letter Doctor YANA 1.2.840.114 [id number] Univers 00:00:00 00:00:00 (Out) Unassigned, CARLOS 350.1.13.10 ity of [place] [facility] 4.2.7.2.686 Bernabe as [phone] [address] 2020-06-02 2020-06-02 Letter Doctor YANA 1.2.840.114 [id number] Univers 00:00:00 00:00:00 (Out) Unassigned, CARLOS 350.1.13.10 ity of [place] [facility] 4.2.7.2.686 Bernabe as [phone] [address] 2020-06-02 2020-06-02 Letter Doctor YANA 1.2.840.114 [id number] Univers 00:00:00 00:00:00 (Out) Unassigned, CARLOS 350.1.13.10 ity of [place] [facility] 4.2.7.2.686 Bernabe as [phone] [facility] [address] 2020-05-20 2020-05-20 Telephone YANA Samano 1.2.400.479 [id number] Univers 00:00:00 00:00:00 Teri RENEE 350.1.13.10 ity of HOSPITAL 4.2.7.2.686 Bernabe as [phone] [facility] [address] 2020-05-20 2020-05-20 Telephone YANA Samano 1.2.378.217 [id number] 00:00:00 00:00:00 Teri RENEE 350.1.13.10 [facility] 42.7.2.686 [id number] [id number] 2020-04-28 2020-04-28 Refill [facility] 1.2.840.114 [id number] Univers 00:00:00 00:00:00 Silverio [place] 350.1.13.10 i ty of [place] 4.2.7.2.686 [place] [phone] Ut dicmt nal [address] [place] [address] 2020-04-27 2020-04-27 [facility] 1.2.840.114 [id number] Univers 11:25:29 11:45:29 Visit Silverio [place] 350.1.13.10 i ty of [place] [address].2.7.2.686 [place] Profess[place] [phone] [address] 2020-04-27 2020-04-27 Outpatient R [facility] [id number] Univers 11:40:00 11:40:00 SILVERIO ity [facility] 2020-04-26 2020-04-26 Outpatient R KITSELECT [facility] [id number] Univers 10:20:00 10:20:00 ERICH ity [facility] 2020-04-14 2020-04-[address] [facility] [address] [facility] 1.2.643.119 [id number] Univers 09:18:24 23:59:00 Encounter Wondiful Lauryn Palomo 350.1.13.10 ity [facility] 4.2.7.2.686 [place] [phone] [address] 2020-04-14 2020-04-14 Outpatient R [facility] [id number] Univers 00:00:00 00:00:00 WONDIFUL ity o f [facility] 2020-03-31 2020-03-31 Electrical Tech [place], Adc Lab Main [facility] 1.2.8 40.114 [id number] Univers 09:18:24 09:33:[address] [place], Wondiful A [place] 350.1.13. 10 ity of [place] 4.2.7.2.686 [place] [phone] Ut dical nal 353 [facility] 2020-03-31 2020-03-31 Outpatient R [facility] [id number] Univers 09:15:00 09:15:00 WONDIFUL ity o f [facility] 2020-03-30 2020-03-30 Laboratory Pacemaker/Icd, [facility] 1.2. 840.114 [id number] Univers 12:51:02 13:15:05 Only Sewdom, Silverio Dewey 350.1.13.10 ity of [place] 4.2.7.2.686 [place] [phone] [facility] 059 [facility] 2020-03-30 2020-03-30 Outpatient R [facility] [id number] Univers 13:00:00 13:00:00 ity of [facility] 2020-03-29 2020-03-29 Office [facility] 1.2.840.114 [id number] Univers 15:15:24 16:12:41 Visit [facility] Lauryn [facility] 350.1.13.10 ity of [place] 4.2.7.2.686 Bernabe as Professio [phone] [facility] [address] One 2020-03-29 2020-03-29 Outpatient R [facility] [id number] Univers 15:30:00 15:30:00 WONDIFUL ity o f [facility] 2020-03-03 2020-03-03 Orders Doctor YANA 1.2.840.114 [id number] Univers 00:00:00 00:00:00 Only Unassigned, CARLOS 350.1.13.10 ity of [place] [facility] 4.2.7.2.686 Bernabe as [phone] [address] 2020-02-03 2020-02-03 Outpatient R [facility] [id number] Univers 14:20:00 14:20:00 SRIRAM ity o f [facility] 2020-02-03 2020-02-03 Office [facility] 1.2.840.114 [id number] Univers 13:38:09 14:13:45 Visit Guillechaim Palomo 350.1.13.10 ity of [place] 4.2.7.2.686 [place] [phone] Ut dicmt nal [address] [place] [address] 2020-01-27 2020-01-27 Office [facility] 1.2.840.114 [id number] Univers 10:58:57 11:32:49 Visit Silverio Dewey 350.1.13.10 i ty of [place] 4.2.7.2.686 [place] [phone] [address] 2020-01-27 2020-01-27 Outpatient R [facility] [id number] Univers 11:00:00 11:00:00 SILVERIO ity of [facility] 2020-01-20 2020-01-20 Orders Doctor YANA 1.2.840.114 [id number] Univers 00:00:00 00:00:00 Only Unassigned, CARLOS 350.1.13.10 ity of [place] [facility] 4.2.7.2.686 Bernabe as [phone] [address] 2020-01-20 2020-01-20 Telephone [facility] 1.2.269.887 [id number] Univers 00:00:00 00:00:00 Sriram Pal[place] 350.1.13.10 ity of [place] 4.2.7.2.686 [place] [phone] Ut dic[address] 2020-01-20 2020-01-20 Refill [facility] 1.2.840.114 [id number] Univers 00:00:00 00:00:00 Qiachaim Palomo 350.1.13.10 ity of [place] 4.2.7.2.686 [place] [phone] Ut dicmt nal [address] [place] [address] 2020-01-14 2020-01-14 Orders Doctor YANA 1.2.840.114 [id number] Univers 00:00:00 00:00:00 Only Unassigned, CARLOS 350.1.13.10 ity of [place] [facility] 4.2.7.2.686 Bernabe as [phone] [address] 2020-01-12 2020-01-12 Outpatient R KUMAR, [facility] [id number] Univers 10:00:00 10:00:00 DIMITRIZECHARIAH itkelsie o f [facility] 2020-01-05 2020-01-05 Electrical Tech 2, Adc Lab [facility] 1.2.840.114 [id number] Univers 15:31:18 15:46:18 Visit Omole, Min Palomo 350.1.1 3.10 ity of [place].2.7.2.686 [place] [phone] Ut dical nal 353 [facility] 2020-01-05 2020-01-05 Office krystle, [facility] 1.2.840.114 [id number] Univers 14:39:45 15:28:14 Visit Min Palomo 350.1.13.10 i ty of [place] 4.2.7.2.686 [place] [phone] Ut dicmt nal 059 [facility] 2020-01-05 2020-01-05 Outpatient R FREDDY, [facility] [id number] Univers 14:45:00 14:45:00 MIN ity of [facility] 2020-01-05 2020-01-05 Orders Doctor MILLAN 1.2.840.114 [id number] Univers 00:00:00 00:00:00 Only Unassigned, CARLOS 350.1.13.10 ity of [place] [facility] 4.2.7.2.686 Bernabe as [phone] [address] 2020-01-01 2020-01-01 Telephone Kumar, [facility] 1.2.386.238 [id number] Univers 00:00:00 00:00:00 Dimitrizechariah Dewey 350.1.13.10 ity of [place].7.2.686 [place] [phone] Ut dicmt nal 059 [facility] 2019-12-19 2019-12-19 Office [facility] 1.2.840.114 [id number] Univers 11:30:41 12:16:36 Visit Nita Palomo 350.1.13.10 i ty of [place] 4.2.7.2.686 [place] [phone] Ut dical nal 085 [facility] 2019-12-19 2019-12-19 Outpatient R NITA DEGROOT [facility] 10 [id number] Univers 11:40:00 11:40:00 NITA DEGROOT i ty of [facility] 2019-12-19 2019-12-19 Telephone [facility] [id number] Univers 00:00:00 00:00:00 Qialisazechariah Palomo [id number] ity [place] [phone] Ut dicmt nal 059 [facility] 2019-12-18 2019-12-18 Orders Doctor YANA 1.2.840.114 [id number] Univers 00:00:00 00:00:00 Only Unassigned, CARLOS [id number] ity of [place] [facility] 4.2.7.2.686 Bernabe as [phone] [address] 2019-12-16 2019-12-16 Office [facility] 1.2.840.114 [id number] Univers 08:53:47 09:13:47 Visit Silverio [place] 350.1.13.10 i [place] [phone] [facility] nal 059 [facility] 2019-12-16 2019-12-16 Outpatient R KIA [facility] [id number] Univers 09:00:00 09:00:00 SILVERIO ity of [facility] 2019-12-15 2019-12-15 [facility]phone [facility] [id number] Univers 00:00:00 00:00:00 Wondiful [facility] [id number] ity of [place] [id number] Bernabe as Professio [phone] [facility] [address] [facility] 2019-12-15 2019-12-15 Case [facility] 1.2.840.114 [id number] Univers 00:00:00 00:00:00 Management Wondiful [facility] [id number] ity of [place] 4.2.7.2.686 [place] Professio [phone] [facility] [address] Building [facility] 2019-12-10 2019-12-10 Orders Doctor YANA 1.2.840.114 [id number] Univers 00:00:00 00:00:00 Only Unassigned, CARLOS 350.1.13.10 ity of [place] [facility] [id number] Bernabe as [phone] [address] 2019-12-09 2019-12-09 Urgent Provider, [facility] 1.2.840.114 [id number] Univers 14:46:41 15:59:38 Care Yeni [facility] [id number] ity of [place] [id number] [place] Professio [phone] [address] Office [facility] 2019-12-09 2019-12-09 Outpatient R LUKE [facility] [id number] Univers 15:00:00 15:00:00 MONICA ity of [facility] 2019-12-04 2019-12-[address] [facility] 1.2.840.114 [id number] Univers 12:39:51 13:39:11 Visit [facility] 350.1.13.10 ity of [place] 4.2.7.2.686 Bernabe as Professio [phone] [address] Office [facility] 2019-12-04 2019-12-04 Outpatient R [facility] [id number] Univers 13:00:00 13:00:00 WONDIFUL ity o f [facility] 2019-12-02 2019-12-02 Laboratory Pacemaker/Icd, [facility] 1.2. 840.114 [id number] Univers 10:50:24 11:27:03 Only Sriram Heathton 350.1.13.10 ity of [place] [phone] [facility] 059 [facility] 2019-12-02 2019-12-02 Outpatient R [facility] [id number] Univers 11:00:00 11:00:00 ity of [facility] 2019-12-02 2019-12-02 [facility] 1.2.840.114 [id number] Univers 00:00:00 00:00:00 Wondiful A Health 350.1.13.10 ity of [place] 4.2.7.2.686 Bernabe as Professio [phone] Ut dical nal [address] Office [facility] One 2019-12-01 2019-12-01 Office [facility] 1.2.840.114 [id number] Univers 15:16:46 16:01:04 Visit Sriram Palomo 350.1.13.10 ity of [place] [phone] Ut dical nal 059 [facility] 2019-12-01 2019-12-01 Outpatient R KUMAR [facility] [id number] Univers 15:40:00 15:40:00 GUILLELISAZECHARIAH martyy o f [facility] 2019-12-01 2019-12-01 Transition Jono Mccurdy 1.2.840.114 [id number] Univers 00:00:00 00:00:00 of Care Jo L Mg 350.1.13.10 i ty of [place] [phone] [facility] [address] 2019-11-26 2019-11-28 Hospital Kirt Thomason [facility] 1.2.840.1 14 [id number] Univers 14:42:00 15:06:00 Encounter Gab Servin 350.1.13.10 ity of [place] [phone] [facility] [address] 2019-11-26 2019-11-28 Inpatient X GAB SERVIN [facility] SAMI [id number] Univers 14:42:00 15:06:00 ity of [facility] 2019-11-26 2019-11-26 [facility] 1.2.840.114 [id number] Univers 00:00:00 00:00:00 Wondiful A Health 350.1.13.10 ity of [place] 4.2.7.2.686 Bernabe as Professio [phone] Ut dical nal [address] Building One 2019-11-24 2019-11-24 Telemedici [facility] 1.2.840.114 [id number] Univers 12:42:21 16:15:48 ne Visit Wondiful [facility] 350.1.13.10 ity of [place] 4.2.7.2.686 Bernabe as Professio [phone] [facility] nal [address] Office Building One 2019-11-24 2019-11-24 Outpatient R [facility] [id number] Univers 15:30:00 15:30:00 WONDIFUL ity o f [facility] 2019-11-24 2019-11-24 Transition Jono Henry 1.2.840.114 [id number] Univers 00:00:00 00:00:00 of Care Cielo Mg 350.1.13.10 it y of [place] [phone] [facility] [address] 2019-11-24 2019-11-24 Orders Doctor YANA 1.2.840.114 [id number] Univers 00:00:00 00:00:00 Only Unassigned, CARLOS 350.1.13.10 ity of [place] [facility] 4.2.7.2.686 Bernabe as [phone] [facility] [address] 2019-11-21 2019-11-21 Transition Jono Henry 1.2.840.114 [id number] Univers 00:00:00 00:00:00 of Care Cielo Mg 350.1.13.10 it y of [place]2.[place].2.[place] [phone] [facility] [address] 2019-11-08 2019-11-20 [facility] Fam Craig 1.2.840.114 [id number] Univers 18:18:00 16:52:00 Encounter Argenis Barnett Carlos 350.1.13.1 0 ity of [facility] 4.2.7.2 .686 [place] [phone] [facility] [address] 2019-11-08 2019-11-20 Inpatient [facility] [id number] Univers 18:18:00 16:52:00 AHMED ity of [facility] 2019-11-20 2019-11-20 [facility] 1.2.840.114 [id number] Univers 00:00:00 00:00:00 Wondiful A Health 350.1.13.10 ity of [place] 4.2.7.2.686 Bernabe as Professio [phone] [address] 2019-11-19 2019-11-19 Outpatient R [facility] [id number] Univers 14:30:00 14:30:00 [facility] 2019-11-19 2019-11-19 [facility] 1.2.840.114 [id number] Univers 00:00:00 00:00:00 Wondiful A Health 350.1.13.10 ity of [place] 4.2.7.2.686 Bernabe as Professio [phone] [address] 2019-11-17 2019-11-17 Outpatient R [facility] [id number] Univers 08:00:00 08:00:00 SILVERIO ity [facility] 2019-11-14 2019-11-14 Outpatient R [facility] [id number] Univers 09:00:00 09:00:00 ity of [facility] 2019-11-10 2019-11-10 Ely [facility] 1.2.840.114 [id number] Univers 00:00:00 00:00:00 Wondiful A Health 350.1.13.10 ity of [place] 4.2.7.2.686 Bernabe as Professio [phone] [address] One 2019-11-08 2019-11-08 Cal[facility] 1.2.840.114 [id number] Univers 00:00:00 00:00:00 Wondiful A Health 350.1.13.10 ity of [place] 4.2.7.2.686 Bernabe as Professio [phone] [address] Office Building One 2019-11-05 2019-11-05 Hospital Kia [facility] 1.2.840.114 [id number] Univers 07:42:01 23:59:00 Encounter Silverio Health 350.1.13.10 ity of [place]2.7.2.686 [place] Moore [phone] [address] ([facility]) 2019-11-05 2019-11-05 Outpatient R KIA [facility] [id number] Univers 00:00:00 00:00:00 SILVERIO ity of [facility] 2019-10-29 2019-10-29 Pre Visit Major [facility] 1.2.840.114 [id number] Univers 00:00:00 00:00:00 Outreach W[facility] 350.1.13.10 ity of [place] 4.2.7.2.686 Bernabe as Professio [phone] [address] Office Building One 2019-10-29 2019-10-29 Pre Visit Major [facility] 1.2.840.114 [id number] Univers 00:00:00 00:00:00 Outreach W[facility]iful [facility] 350.1.13.10 ity of [place] 4.2.7.2.686 Bernabe as Professio [phone] [address] Office Building One 2019-10-28 2019-10-28 Office Major [facility] 1.2.840.114 [id number] Univers 08:55:08 09:43:57 Visit W[facility]iful [facility] 350.1.13.10 ity of [place] 4.2.7.2.686 Bernabe as Professio [phone] [address] Office Building [facility] 2019-10-28 2019-10-28 Outpatient R MAJOR [facility] [id number] Univers 09:30:00 09:30:00 WONDIFUL ity o f [facility] 2019-10-24 2019-10-24 Emergency Lukasz [facility] 1.2.306.038 [id number] Univers 19:34:00 23:51:00 Lubna S [place] 350.1.13.10 ity of [place] 4.2.7.2.[place] [phone] [facility] [address] 2019-10-24 2019-10-24 Emergency X LUKASZ, [facility] ERT [id number] Univers 19:34:00 23:51:00 LUBNA ity of [facility] 2019-10-24 2019-10-[address] [facility] 1.2.840.114 [id number] Univers 00:00:00 00:00:00 Wondiful A Health 350.1.13.10 ity of [place] 4.2.7.2.686 Bernabe as Professio [phone] [address] Office Building [facility] 2019-10-24 2019-10-24 Orders Doctor YANA 1.2.840.114 [id number] Univers 00:00:00 00:00:00 Only Unassigned, CARLOS 350.1.13.10 ity of [place] [facility]OS[facility] 4.2.7.2.686 Bernabe as [phone] [facility] [address] 2019-10-21 2019-10-21 Telephone Mary Kay Adam 1.2.232.499 [id number] Univers 00:00:00 00:00:00 Silverio Carlos 350.1.13.10 it y of Hospital 4.2.7.2.686 Bernabe as [phone] [facility] [address] 2019-10-09 2019-10-09 Telephone GLENNA Adam 1.2.840.114 [id number] Univers 00:00:00 00:00:00 Silverio Y HEALTH 350.1.13.10 i ty of CL[place] 4[place]2.7.2.[place] [phone] [facility] [address] 2019-10-08 2019-10-[address] [facility] 1.2.840.114 [id number] Univers 00:00:00 00:00:00 Wondiful A Health 350.1.13.10 ity of [place] 4.2.7.2.686 Bernabe as Professio [phone] [address] Office [facility] 2019-10-08 2019-10-08 [facility] 1.2.801.198 [id number] Univers 00:00:00 00:00:00 Silverio [place] 350.1.13.10 i ty of [place] 4.2.7.2.[place] [phone] [facility] 059 [facility] 2019-10-01 2019-10-01 Orders Doctor YANA 1.2.840.114 [id number] Univers 00:00:00 00:00:00 Only Unassigned, CARLOS 350.1.13.10 ity of [place] [facility] 4.2.7.2.686 Bernabe as [phone] [address] 2019-09-23 2019-09-23 Telephone [facility] 1.2.796.569 [id number] Univers 00:00:00 00:00:00 Silverio [place] 350.1.13.10 i ty of [place].2.7.2.[place] [phone] [facility] 059 [facility] 2019-09-18 2019-09-[address] [facility] 1.2.840.114 [id number] Univers 00:00:00 00:00:00 Wondiful A [place] 350.1.13.10 ity of [place] 4.2.7.2.[place] [phone] [facility] 044 [facility] 2019-09-17 2019-09-17 [facility] 1.2.101.997 [id number] Univers 00:00:00 00:00:00 Silverio [place] 350.1.13.10 i ty of [place] 4.2.7.2.[place] [phone] [place] 563079 [facility] 2019-09-16 2019-09-16 Office [facility] 1.2.840.114 [id number] Univers 10:18:05 12:06:59 Visit Silverio [place] 350.1.13.10 i ty of [place] 4.2.7.2.[place] [phone] [place] 563079 [facility] 2019-09-16 2019-09-16 Outpatient R [facility] [id number] Univers 10:40:00 10:40:00 SILVERIO ity of [facility] 2019-09-16 2019-09-16 Telephone [facility] 1.2.932.550 [id number] Univers 00:00:00 00:00:00 Dimitrizechariah [place] 350.1.13.10 ity of [place] 4.2.7.2.[place] [phone] [place] 563079 [facility] 2019-09-15 2019-09-15 Laboratory Pc, Adc Echo Room 1 - [facility] 1 .2.840.114 [id number] Univers 09:42:44 11:10:38 Only Kumar Sriram Palomo 350.1.13.10 ity of [place] 4.2.7.2.[place] [phone] [address] 2019-09-15 2019-09-15 Outpatient R [facility] [id number] Univers 10:00:00 10:00:00 ity of [facility] 2019-09-10 2019-09-10 [facility]phone [facility] 1.2.840.114 [id number] Univers 00:00:00 00:00:00 Wondiful A Dewey 350.1.13.10 ity of [place] 4.2.7.2.[place] Profess[place] [phone] [address] 2019-09-08 2019-09-08 Office [facility] 1.2.840.114 [id number] Univers 13:10:22 13:44:08 Visit Sriram [place] 350.1.13.10 ity of [place] 4.2.7.2.[place] Profess[place] [phone] [address] 2019-09-08 2019-09-08 Outpatient R [facility] [id number] Univers 13:20:00 13:20:00 SRIRAM fergusony o f [facility] 2019-08-25 2019-08-25 Refill [facility] 1.2.840.114 [id number] Univers 00:00:00 00:00:00 Sriram Health 350.1.13.10 i ty of [place] 4.2.7.2.686 Bernabe as Professio [phone] [address] Office [facility] One 2019-08-18 2019-08-18 Telephone Kumar, [facility] 1.2.485.967 [id number] Univers 00:00:00 00:00:00 Sriram Palomo 350.1.13.10 ity of [place] 4.2.7.2.[place] [phone] Ut dicmt nal 059 [facility] 2019-08-15 2019-08-15 Nurse Visit, [facility] Nurse [facility] 1.2.840.1 14 [id number] Univers 09:12:28 21:57:47 Visit Dago Gross 350.1.13. 10 ity of [place] 4.2.7.2.[place] [phone] Ut dical nal 059 [facility] 2019-08-15 2019-08-15 Electrical Tech 2, [facility] Lab [facility] 1.2.840.114 [id number] Univers 10:09:35 10:24:35 Visit Dago Gross 350.1.13. 10 ity of [place] 4.2.7.2.[place] [phone] Ut dical nal 353 [facility] 2019-08-15 2019-08-15 Outpatient R [facility] [id number] Univers 09:30:00 09:30:00 ity of [facility] 2019-08-13 2019-08-13 Office [facility] 1.2.840.114 [id number] Univers 16:05:34 16:57:20 Visit Alexey Palomo 350.1.13.10 i ty of [place] 4.2.7.2.[place] [phone] Ut dical nal 220 [facility] 2019-08-13 2019-08-13 Outpatient R [facility] [id number] Univers 16:30:00 16:30:00 ALEXEY ity [facility] 2019-08-13 2019-08-13 Orders Doctor MILLAN 1.2.840.114 [id number] Univers 00:00:00 00:00:00 Only Unassigned, CARLOS 350.1.13.10 ity of [place] [facility] 4.2.7.2.686 Bernabe as [phone] [address] 2019-08-13 2019-08-13 [facility] 1.2.840.114 [id number] Univers 00:00:00 00:00:00 Sriram [place]ton 350.1.13.10 ity of [place] 4.2.7.2.[place] [phone] [address] 2019-08-07 2019-08-07 [facility] 1.2.840.114 [id number] Univers 00:00:00 00:00:00 Wondiful A Health 350.1.13.10 ity of [place] 4.2.7.2.686 Bernabe as Professio [phone] [address] 2019-08-04 2019-08-04 Electrical Tech Pc, Adc Vascular Room 1 - [facility] 1.2.840.114 [id number] Univers 10:43:00 11:05:18 Visit Sriram [place] 350.1.13.10 ity of [place] 4.2.7.2.[place] [phone] [address] 2019-08-04 2019-08-04 Outpatient R [facility] [id number] Univers 11:00:00 11:00:00 ity of [facility] 2019-08-04 2019-08-04 Telephone [facility] 1.2.692.164 [id number] Univers 00:00:00 00:00:00 Sriram Palomo 350.1.13.10 ity of [place] 4[place]2.[place].2.[place] [phone] [address] 2019-08-03 2019-08-03 Refis[facility] 1.2.840.114 [id number] Univers 00:00:00 00:00:00 Wondiful A Health 350.1.13.10 ity of [place] 4.2.7.2.686 Bernabe as Professio [phone] [address] 2019-07-30 2019-07-30 Office [facility] 1.2.840.114 [id number] Univers 13:54:46 14:40:55 Visit Guillelisazechariah Dewey 350.1.13.10 ity of [place] 4.2.7.2.[place] [phone] [place] 563079 [facility] 2019-07-30 2019-07-30 Outpatient R [facility] [id number] Univers 14:20:00 14:20:00 SRIRAM ity o f [facility] 2019-07-30 2019-07-30 Orders Doctor YANA 1.2.840.114 [id number] Univers 00:00:00 00:00:00 Only Unassigned, CARLOS 350.1.13.10 ity of [place] [facility] 4.2.7.2.686 Bernabe as [phone] [address] 2019-07-17 2019-07-17 Orders Doctor YANA 1.2.840.114 [id number] Univers 00:00:00 00:00:00 Only Unassigned, CARLOS 350.1.13.10 ity of [place] HOSPITAL 4.2.7.2.686 Bernabe as [phone] [address] 2019-07-16 2019-07-16 Telephone [facility] 1.2.840.114 [id number] Univers 00:00:00 00:00:00 Wondiful A Health 350.1.13.10 ity of [place] 4.2.7.2.686 Bernabe as Professio [phone] [facility] 044 [facility] One 2019-07-01 2019-07-01 Telephone [facility] 1.2.596.037 [id number] Univers 00:00:00 00:00:00 Guillelisazechariah [place] 350.1.13.10 ity of [place] 4.2.7.2.[place] [phone] [facility] 059 [facility] 2019-06-30 2019-06-30 Electrical Tech [place], Adc Lab Main [facility] 1.2.8 40.114 [id number] Univers 07:52:57 08:07:57 Visit Kumar Sriram Pal[place] 350.1.13.10 ity of [place] 4.2.7.2.[place] [phone] [facility] 353 [facility] 2019-06-30 2019-06-30 Outpatient R KUMAR, [facility] [id number] Univers 08:00:00 08:00:00 SRIRAM de oliveira o f [facility] 2019-06-25 2019-06-25 Outpatient R KUMAR, [facility] [id number] Univers 09:40:00 09:40:00 SRIRAM fergusony o [facility] 2019-06-25 2019-06-25 Telemedici [facility] 1.2.840.114 [id number] Univers 08:37:50 08:57:50 ne Visit Sriram [place] 350.1.13.10 ity of [place] 4.2.7.2.[place] [phone] [facility] 059 [facility] 2019-05-28 2019-05-28 [facility] 1..840.114 [id number] Univers 00:00:00 00:00:00 Wondiful A Health 350.1.13.10 ity of [place] 4.2.7.2.686 Bernabe as Professio [phone] [facility] 044 [facility] 2019-05-25 2019-05-25 [facility] 1..840.114 [id number] Univers 00:00:00 00:00:00 Wondiful A Health 350.1.13.10 ity of [place] 4.2.7.2.686 Bernabe as Professio [phone] [address] 2019-05-21 2019-05-21 Outpatient R ALEXUS RAMOS [facility] [id number] Univers 10:00:00 10:00:00 ALEXUS RAMOS ity [facility] 2019-05-20 2019-05-20 Telemgisell HeathR[facility] 1..840.114 [id number] Univers 13:50:59 14:10:59 ne Visit Dimitrifirsthealth [place] 350.1.13.10 ity of [place] 4.2.7.2.[place] [phone] Ut dical nal 059 [facility] 2019-05-20 2019-05-20 Outpatient R KUMAR, [facility] [id number] Univers 13:40:00 13:40:00 QIALISAZECHARIAH ity o f [facility] 2019-05-20 2019-05-20 Telephone [facility] 1.2.840.114 [id number] Univers 00:00:00 00:00:00 Wondiful A Health 350.1.13.10 ity of [place] 4.2.7.2.686 Bernabe as Professio [phone] Ut dical nal [address] Office [facility] 2019-05-13 2019-05-13 Telephone [facility] 1.2.487.910 [id number] Univers 00:00:00 00:00:00 Qiangzechariah [place] 350.1.13.10 ity of [place] 4.[place].2.[place] [phone] Ut dical nal 059 [facility] 2019-05-09 2019-05-[address] [facility] 1.2.840.114 [id number] Univers 00:00:00 00:00:00 Wondiful A Health 350.1.13.10 ity of [place] 4.2.7.2.686 Bernabe as Professio [phone] Ut dical nal [address] Office [facility] 2019-05-02 2019-05-02 Telephone [facility] 1.2.840.114 [id number] Univers 00:00:00 00:00:00 Wondiful A Health 350.1.13.10 ity of [place] 4.2.7.2.686 Bernabe as Professio [phone] Ut dical nal [address] Office [facility] 2019-05-02 2019-05-02 Telephone [facility] 1.2.322.753 [id number] Univers 00:00:00 00:00:00 Wentong [place] 350.1.13.10 i ty of [place] 4[place].2.[place] [phone] Ut dical nal 220 [facility] 2019-04-30 2019-04-30 Electrical Tech [place], Adc Lab Main [facility] 1.2.8 40.114 [id number] Univers 09:32:20 09:47:20 Visit Sriram [place] 350.1.13.10 ity of [place] 4.2.7.2.[place] [phone] Ut dical nal 353 [facility] 2019-04-30 2019-04-30 Outpatient [facility] [id number] Univers 09:45:00 09:45:00 SRIRAM fergusony o f [facility] 2019-04-30 2019-04-[address] [facility] 1.2.840.114 [id number] Univers 00:00:00 00:00:00 WonGamma Basics A Luminetx 350.1.13.10 ity of [place] 4.2.7.2.686 Bernabe as Professio [phone] Ut dical nal 044 [facility] One 2019-04-28 2019-04-28 Office [facility] 1.2.840.114 [id number] Univers 13:21:45 14:34:07 Visit Sriram Palomo 350.1.13.10 ity of [place] 4[place]2.[place].2.[place] [phone] Ut dical nal 059 [facility] 2019-04-28 2019-04-28 Outpatient R KUMAR [facility] [id number] Univers 13:20:00 13:20:00 SRIRAM ity o f [facility] 2019-04-09 2019-04-09 Electrical Tech Luís Coleman Lab Main [facility] 1.2.8 40.114 [id number] Univers 16:15:01 16:30:01 Visit Alexey Castle 350.1.13.10 ity of [place] [phone] Ut dical sathya 353 [facility] 2019-04-09 2019-04-09 Office [facility] 1.2.840.114 [id number] Univers 15:08:31 15:58:05 Visit Alexey Dewey 350.1.13.10 i ty of [place] 4.2.7.2.[place] [phone] Ut dical nal 220 [facility] 2019-04-09 2019-04-09 Orders Doctor YANA 1.2.840.114 [id number] Univers 00:00:00 00:00:00 Only Unassigned, CARLOS 350.1.13.10 ity of [place] [facility]OSP[facility] 4.2.7.2.686 Bernabe as [phone] [address] 2019-03-14 2019-03-30 Nurse Visit, [facility] Nurse [facility] 1.2.840.1 14 [id number] Univers 08:39:08 18:06:53 Visit Dago Gross 350.1.13. 10 ity of [place]2.[place].2.[place] [phone] [facility] 2019-03-28 2019-03-28 Telephone Major [facility] 1.2.840.114 [id number] Univers 00:00:00 00:00:00 Wondiful A Health 350.1.13.10 ity of [place] 4.2.7.2.686 Bernabe as Professio [phone] [facility] 044 [facility] 2019-03-24 2019-03-24 Telephone Major [facility] 1.2.840.114 [id number] Univers 00:00:00 00:00:00 Wondiful A Health 350.1.13.10 ity of [place] 4.2.7.2.686 Bernabe as Professio [phone] [facility] 044 [facility] 2019-03-14 2019-03-14 Outpatient R GINNY [facility] [id number] Univers 09:15:00 09:37:46 SENDIL ity of [facility] 2019-03-14 2019-03-14 Orders Doctor YANA [id number] Univers 00:00:00 00:00:00 Only Unassigned, CARLOS 350.1.13.10 ity of [place] [facility] [id number] Bernabe as [phone] [address] 2019-03-06 2019-03-06 [facility] [id number] Univers 00:00:00 00:00:00 Wondiful A Health [id number] ity of [place] [id number] Bernabe as Professio [phone] [place] [address] [address] 2019-01-27 2019-01-27 Outpatient R KUMAR, [facility] [id number] Univers 14:20:00 14:44:45 SRIRAM fergusony o f [facility] 2019-01-19 2019-01-19 Emergency X MARIO, [facility] ERT [id number] Univers 10:06:29 15:10:00 EVAN de oliveira [facility] 2019-01-06 2019-01-06 [facility] [id number] Univers 15:00:00 15:00:00 CLARE de oliveira o f [facility] 2018-12-11 2018-12-11 Outpatient R [facility] [id number] Univers 08:45:00 08:45:00 EKATERINA de oliveira [facility] 2018-11-01 2018-11-01 [facility] 1.2.840.114 [id number] Univers 00:00:00 00:00:00 [place] HEALTH [id number] it y of [facility] [id number] [facility] [phone] [facility] Primary & [address] [facility] 2018-10-31 2018-10-31 [facility]phone [facility] 1.2.840.114 [id number] Univers 00:00:00 00:00:00 Wondiful A Health [id number] ity of [place] [id number] Bernabe as Professio [phone] [place] [address] [address] 2018-10-30 2018-10-30 [facility]phone [facility] [id number] Univers 00:00:00 00:00:00 Madeleine Rica HEALTH [id number] ity of [place] [id number] [facility] University [facility] [phone] [facility] Primary & 059 Branch Specialty Care 2018-10-30 2018-10-30 Telephone [facility] 1.2.840.114 [id number] Univers 00:00:00 00:00:00 Wondiful A [facility] 350.1.13.10 ity of [place] 4.2.7.2.686 Bernabe as Professio [phone] Ut dical nal [address] One 2018-10-29 2018-10-29 Office Cookie [facility] 1.2.840.114 [id number] Univers 13:11:56 13:52:23 Visit Emily Health 350.1.13.10 i ty of [place] 4.2.7.2.686 Bernabe as Professio [phone] Ut dical nal [address] 2018-10-28 2018-10-29 Office Fac, Adc Heart Failure Cardio [facility] 1.2.840.114 [id number] Univers 15:47:43 12:03:16 Visit Edgar Cortés [place] 350.1 .13.10 ity of [place] 4.2.7.2.686 [facility] Professio [phone] Ut dical nal 059 [facility] 2018-10-28 2018-10-28 Hospital Nate [facility] 1.2.840.114 [id number] Univers 16:46:06 23:59:00 Encounter Madeleine Palomo 350.1.13.10 ity of [place] 4.2.7.2.686 [facility] [place] [phone] [facility] [address] 2018-10-28 2018-10-28 Electrical Tech 1, Adc Lab [facility] 1.2.840.114 [id number] Univers 16:41:14 16:56:14 Visit Madeleine Sullivan 350.1.13.10 ity of [place] 4[place]7.2.[place] [phone] [facility] [address] 2018-10-28 2018-10-28 Orders Doctor YANA 1.2.840.114 [id number] Univers 00:00:00 00:00:00 Only Unassigned, CARLOS 350.1.13.10 ity of [place] [facility] 4.2.7.2.686 Bernabe as [phone] [facility] [address] Branch 2018-10-24 2018-10-24 Cali Dorsey [facility] 1.2.840.114 [id number] Univers 00:00:00 00:00:00 [place] [facility] 350.1.13.10 it y of [place] 4[place]2.7.2.686 [place] [phone] [facility] Primary & [facility] Branch Specialty Care 2018-10-14 2018-10-14 Refill Freddy, [facility] 1.2.840.114 [id number] Univers 00:00:00 00:00:00 Min [place] 350.1.13.10 i ty of [place] 4[place]2.7.2.[place] Profess[place] [phone] [address] Building 2018-10-01 2018-10-01 Orders Doctor YANA 1.2.840.114 [id number] Univers 00:00:00 00:00:00 Only Unassigned, CARLOS 350.1.13.10 ity of [place] [facility] 4.2.7.2.686 Bernabe as [phone] [facility] [address] Branch 2018-09-26 2018-09-26 Electrical Tech Lab, [facility] Fam Pob I [facility] 1.2. 840.114 [id number] Univers 13:45:07 15:25:16 Visit Major Clare [facility] 350.1.13.1 0 ity of [place] 4.2.7.2.686 Bernabe as Professio [phone] [address] Office Building One 2018-09-26 2018-09-26 Telephone Fac, [facility] 1.2.840.114 [id number] Univers 00:00:00 00:00:00 Heart HEALTH 350.1.13.10 it y of [place] 4[place]2.7.2.[place] [phone] [facility] Primary & [facility] Branch Specialty Care 2018-09-10 2018-09-10 Office Major [facility] 1.2.840.114 [id number] Univers 12:36:16 13:37:40 Visit Josianeful A Health 350.1.13.10 ity of [place] 4.2.7.2.686 Bernabe as Professio [phone] [address] Office Building One 2018-09-02 2018-09-02 Orders Doctor YANA 1.2.840.114 [id number] Univers 00:00:00 00:00:00 Only Unassigned, CARLOS 350.1.13.10 ity of [place] [facility] 4.2.7.2.686 Bernabe as [phone] [address] Results Test Description Test Time Test Comments Results Result Comments Source POCT GLUCOSE (AUTOMATED) 2022-02-19 18:34:13 Test Item Value Reference Range Interpretation Comme nts POCT GLU (test code = 5915285533) 354 mg/dL 70-110 H Lab Interpretation (test code = 46696-2) [facility] 14:51:34 Test Item Value Reference Range Interpretation Comments POCT GLU (test code = 2141013536) 158 mg/dL 70-110 H Lab Interpretation (test code = Abnormal 38274-5) [facility]2022-02-19 07:09:11 Test Item Value Reference Range Interpretation Comments POCT GLU (test code = 0314438485) 109 mg/dL 70-110 Lab Interpretation (test code = Normal 67051-9) [facility]2022-02-19 06:15:00 Test Item Value Reference Range Interpretation Comments POCT GLU (test code = 6493384168) 56 mg/dL 70-110 L Lab Interpretation (test code = Abnormal 13305-3) [facility]2022-02-19 03:41:03 Test Item Value Reference Range Interpretation Comments POCT GLU (test code = 4318703354) 197 mg/dL 70-110 H Lab Interpretation (test code = Abnormal 54609-3) [facility]2022-02-18 23:17:16 Test Item Value Reference Range Interpretation Comments POCT GLU (test code = 5332206720) 240 mg/dL 70-110 H Lab Interpretation (test code = Abnormal 65195-7) [facility] 18:24:23 Test Item Value Reference Range Interpretation Comments POCT GLU (test code = 3888091198) 274 mg/dL 70-110 H Lab Interpretation (test code = Abnormal 13178-6) [facility]2022-02-18 18:24:18 Test Item Value Reference Range Interpretation Comments POCT GLU (test code = 0940952530) 92 mg/dL 70-110 Lab Interpretation (test code = Normal 83584-5) [facility] (Total Cholesterol, Triglycerides, HDL) - [id number] 12:27:34 Test Item Value Reference Range Interpretation Comments CHOL (test code = 146 mg/dL 120-200 8622848973) HDL (test code = 54 mg/dL See_Comment [Automated message] 6911096028) The system [employer] generated this result transmit luis miguel reference range : >=50. The refer ence range was not u sed to interpret th is result as normal/abnormal . HDLC RATIO (test code = See_Comment [Au tomated message] 9396780856) The system [employer] generated this result transmit luis miguel reference range : <=4.5. The refe rence range was not u sed to interpret th is result as normal/abnormal . TRIG (test code = 113 mg/dL 30-170 7873543244) LDL CHOL (test code = 69 mg/dL See_Comment [Auto mated message] 36408-3) The system [employer] generated this result transmit luis miguel reference range : <=160. The refe rence range was not u sed to interpret th is result as normal/abnormal . VLDL (test code = 23 mg/dL 5-60 9649739355) Lab Interpretation (test Normal code = 77504-8) [facility] [id number] 12:27:34 Test Item Value Reference Range Interpretation Comments NT-proBNP (test code 87685 pg/mL See_Comment H [Autom ated = 6460385220) message] The system which generated this result transmitted reference range : <=450. The reference range was not used to interpret this result as normal/abnormal . SEN (test code = SEN) Biotin has been reported to cause a negative bias, interpret results relative to patient's use of biotin. Lab Interpretation Abnormal (test code = 15929-6) [facility] (NA, K, CL, CO2, GLUCOSE, BUN, CREATININE, CA)2022-02-18 12:27:14 Test Item Value Reference Range Interpretation Comments NA (test code = 137 mmol/L 135-145 5026099092) K (test code = 4.0 mmol/L 3.5-5.0 8146256541) CL (test code = 104 mmol/L 98-108 2193583242) CO2 TOTAL (test code = 25 mmol/L 23-31 1219168457) AGAP (test code = 2-16 7130098597) BUN (test code = 62 mg/dL 7-23 H 3314806489) GLUCOSE (test code = 90 mg/dL 70-110 5476777873) CREATININE (test code = 2.02 mg/dL 0.50-1.04 H 7132159402) CALCIUM (test code = 8.3 mg/dL 8.6-10.6 L 6204652464) eGFR (test code = mL/min/1.73m2 9154294182) SEN (test code = SEN) Association of [...] tests). Lab Interpretation Abnormal (test code = 33477-3) [facility] WITH [id number] 11:30:43 Test Item Value Reference Range Interpretation [...] RDW-SD (test code = 46.4 fL 39.0-49.9 53670-7) RDW-CV (test code = 13.2 % 12.0-15.5 788-0) PLT (test code = See_Comment [Automated 777-3) message] The sy stem which generated this result transmitted reference range : 166 - 358 10*3/ ?L. The reference r beltran was not used to interpret this result as normal/abnormal . MPV (test code = 13.0 fL 9.5-12.9 H 58990-6) NRBC/100 WBC (test See_Comment [Automat ed code = 0740948742) message] The system which generated this result transmitted reference range : 0.0 - 10.0 /100 WBCs. The refer ence range was not u sed to interpret th is result as normal/abnormal . NRBC x10^3 (test code See_Comment [Auto mated = 9789890794) message] The s ystem which generated this result transmitted reference range : 10*3/?L. The reference range was not used to interpret this result as normal/abnormal . GRAN MAT (NEUT) % 58.4 % (test code = 770-8) IMM GRAN % (test code 0.30 % = 1337881409) LYMPH % (test code = 27.5 % 736-9) MONO % (test code = 9.3 % 5905-5) EOS % (test code = 4.2 % 713-8) BASO % (test code = 0.3 % 706-2) GRAN MAT x10^3(ANC) 3.71 10*3/uL 1.88-7.09 (test code = 4005356066) IMM GRAN x10^3 (test 0.00-0.06 code = 1532252971) LYMPH x10^3 (test code 1.75 10*3/uL 1.32-3.29 = 731-0) MONO x10^3 (test code 0.59 10*3/uL 0.33-0.92 = 742-7) EOS x10^3 (test code = 0.27 10*3/uL 0.03-0.39 711-2) BASO x10^3 (test code 0.01-0.07 = 704-7) Lab Interpretation Abnormal (test code = 08609-1) [facility] GLUCOSE (AUTOMATED)2022-02-18 02:39:08 Test Item Value Reference Range Interpretation Comments POCT GLU (test code = 9302460882) 196 mg/dL 70-110 H Lab Interpretation (test code = Abnormal 30482-4) [facility] GLUCOSE (AUTOMATED)2022-02-17 23:16:54 Test Item Value Reference Range Interpretation Comments POCT GLU (test code = 7639554667) 140 mg/dL 70-110 H Lab Interpretation (test code = Abnormal 45034-3) [facility]2022-02-17 19:44:53 Test Item Value Reference Range Interpretation Comments Height (test code = in 1114021594) Weight (test code = lbs 0108279038) Systolic BP (test code = mmHg 8788496255) Diastolic BP (test code mmHg = 9557154581) Heart Rate (test code = bpm 2775101689) BSA (test code = 1.81 m2 7088279555) Ao root diam (test code 3.30 cm = 3693963415) Aortic root (test code = 3.3 cm 9894455401) Ao root annulus (test 3.3 cm code = 3068980910) LVOT diameter (test code 1.89 cm = 1332305994) LVOT area (test code = 2.80 cm2 3771744138) LAV(MOD-sp4) (test code 52.90 mL = 3881679169) E wave decelartion time 0.17 s (test code = 8800649119) MV stenosis pressure 1/2 51.3 ms time (test code = 7070181589) MV Peak E Mily (test code 95.2 cm/s = 8796656484) MV Peak A Mily (test code 61.8 cm/s = 9606626667) E/A ratio (test code = ratio 5704614072) MV Prop V (test code = 23.30 cm/s 1349565242) MV E/e' septal (test 7.8 cm/s code = 4170219474) TR Peak Mily (test code = 310.8 cm/s 3444856830) Triscuspid Valve mmHg Regurgitation Peak Gradient (test code = 5624220876) Tapse (test code = 1.99 cm 4110117302) LVOT stroke volume (test 40.40 cm3 code = 1758232287) LVOT peak mily (test code 67.8 cm/s = 0607512451) LVOT mn grad (test code mmHg = 9163791759) AV LVOT peak gradient mmHg (test code = 4822630725) LVOT peak VTI (test code 14.4 cm = 5213923962) LV V1 mean (test code = 45.30 cm/s 1932610224) MR max PG (test code = 65.40 mm[Hg] 9483031196) MR max mily (test code = 404.30 cm/s 4732268325) Mr max mily (test code = 404.3 m/s 1017290527) LVIDD (test code = 6.30 cm 0482246196) Left Ventricular End 202.4 mL Diastolic Volume by Teichholz Method (test code = 9923596) IVS (test code = 0.94 cm 9526989012) Interventricular Septum 0.94 cm Diastolic Thickness by 2D (test code = 2958585) LVPWD (test code = 0.94 cm 4630815487) PW (test code = 0.94 cm 0.6-1.7 4714375108) EF(Teich) (test code = 19.10 % 8825992894) LVIDS (test code = 5.80 cm 2550795157) Left Ventricular End 163.8 mL Systolic Volume by Teichholz Method (test code = 6812938) FS (test code = 9 % 6933987515) EF - 2D (test code = 19.10 % 17255624) LA size (test code = 3.5 cm 2411154243) Radiology Study observation (narrative) (test code = 68645-1) SEN (test code = SEN) Table formatting [...] mL of Lumason ultrasound enhancing agent used. [facility] GLUCOSE (AUTOMATED)2022-02-17 18:19:03 Test Item Value Reference Range Interpretation Comments POCT GLU (test code = 0110436996) 160 mg/dL 70-110 H Lab Interpretation (test code = Abnormal 09713-8) [facility] GLUCOSE (AUTOMATED)2022-02-17 14:06:55 Test Item Value Reference Range Interpretation Comments POCT GLU (test code = 0500375775) 101 mg/dL 70-110 Lab Interpretation (test code = Normal 77289-9) [facility] GLUCOSE (AUTOMATED)2022-02-17 03:58:48 Test Item Value Reference Range Interpretation Comments POCT GLU (test code = 4029211260) 278 mg/dL 70-110 H Lab Interpretation (test code = Abnormal 50781-5) [facility] GLUCOSE (AUTOMATED)2022-02-17 03:21:46 Test Item Value Reference Range Interpretation Comments POCT GLU (test code = 9475128134) 279 mg/dL 70-110 H Lab Interpretation (test code = Abnormal 68396-5) [facility]EM[facility]GLOB[facility] (A1C)2022-02-17 01:58:04 Test Item Value Reference Range Interpretation Comments HGB A1C (test code = 10.0 % 4.0-5.7 H 4548-4) SEN (test code = SEN) Reference RangesNormal: <5.7%Prediabetes: 5.7 - 6.4%Diabetes: > 6.5% Lab Interpretation (test Abnormal code = 23764-1) [facility]TROP[facility] [id number] 17:30:57 Test Item Value Reference Interpretation Comments Range TROPONIN I (test 0.028 ng/mL See_Comment [Automated code = 4120894098) message] The system which generated this result [...] biotin. Lab Interpretation Normal (test code = 40693-7) [facility] [id number] 17:27:54 Test Item Value Reference Range Interpretation Comments NT-proBNP (test code 01180 pg/mL See_Comment H [Autom ated = 6379533534) message] The system which generated this result transmitted reference range : <=450. The reference range was not used to interpret this result as normal/abnormal . SEN (test code = SEN) Biotin has been reported to cause a negative bias, interpret results relative to patient's use of biotin. Lab Interpretation Abnormal (test code = 07781-3) [facility]OL[facility] (NA, K, CL, CO2, GLUCOSE, BUN, CREATININE, CA)2022-02-16 17:19:15 Test Item Value Reference Range Interpretation Comments NA (test code = 135 mmol/L 135-145 7143518602) K (test code = 4.7 mmol/L 3.5-5.0 0594026144) CL (test code = 104 mmol/L 98-108 6851147828) CO2 TOTAL (test code = 23 mmol/L 23-31 9441893491) AGAP (test code = 2-16 3233669566) BUN (test code = 58 mg/dL 7-23 H 4206540631) GLUCOSE (test code = 260 mg/dL 70-110 H 8911247731) CREATININE (test code = 1.78 mg/dL 0.50-1.04 H 9362586350) CALCIUM (test code = 8.2 mg/dL 8.6-10.6 L 8958964960) eGFR (test code = mL/min/1.73m2 6605212094) SEN (test code = SEN) Association of [...] tests). Lab Interpretation Abnormal (test code = 82462-7) [facility] HospitalHEPAT[facility] FUNCTION PANEL (48627) (ALB,T.PRO,BILI T,BU/BC,ALT,AST,ALK PHOS)2022-02-16 17:19:15 Test Item Value Reference Range Interpretation Comments TOTAL BILI (test code = 1968274314) 0.4 mg/dL 0.1-1.1 BILI UNCON (test code = 6737763524) 0.3 mg/dL 0.1-1.1 BILI CONJ (test code = 1748786640) 0.0 mg/dL 0.0-0.3 T PROTEIN (test code = 4272581950) 6.8 g/dL 6.3-8.2 ALBUMIN (test code = 6820009249) 3.8 g/dL 3.5-5.0 ALK PHOS (test code = 2253872703) 146 U/L 34-122 H ALTv (test code = 1742-6) 29 U/L 5-35 AST(SGOT) (test code = 8191203772) 28 U/L 13-40 Lab Interpretation (test code = Abnormal 27203-9) [facility]2022-[facility]-29 17:19:15 Test Item Value Reference Range Interpretation Comments LIPASE (test code = 7869310557) 46 U/L 0-220 Lab Interpretation (test code = Normal 82443-9) [facility] WITH [id number] 17:12:53 Test Item Value Reference Range Interpretation Comments WBC (test code = See_Comment [Automated 6690-2) message] The sy stem which generated this result transmitted reference range : 4.30 - 11.10 10*3/?L. The reference range was not used to interpret this result as normal/abnormal . RBC (test code = See_Comment L [Automated 129-8) message] The sy stem which generated this [...] RDW-SD (test code = 47.8 fL 39.0-49.9 21520-9) RDW-CV (test code = 13.5 % 12.0-15.5 788-0) PLT (test code = See_Comment [Automated 777-3) message] The sy stem which generated this result transmitted reference range : 166 - 358 10*3/ ?L. The reference r beltran was not used to interpret this result as normal/abnormal . MPV (test code = 12.9 fL 9.5-12.9 38790-7) NRBC/100 WBC (test See_Comment [Automat ed code = 1314027142) message] The system which generated this result transmitted reference range : 0.0 - 10.0 /100 WBCs. The refer ence range was not u sed to interpret th is result as normal/abnormal . NRBC x10^3 (test code See_Comment [Auto mated = 3479754871) message] The s ystem which generated this result transmitted reference range : 10*3/?L. The reference range was not used to interpret this result as normal/abnormal . GRAN MAT (NEUT) % 75.4 % (test code = 770-8) IMM GRAN % (test code 0.20 % = 8300903454) LYMPH % (test code = 14.9 % 736-9) MONO % (test code = 7.7 % 5905-5) EOS % (test code = 1.6 % 713-8) BASO % (test code = 0.2 % 706-2) GRAN MAT x10^3(ANC) 6.77 10*3/uL 1.88-7.09 (test code = 4160807440) IMM GRAN x10^3 (test 0.00-0.06 code = 3374044541) LYMPH x10^3 (test code 1.34 10*3/uL 1.32-3.29 = 731-0) MONO x10^3 (test code 0.69 10*3/uL 0.33-0.92 = 742-7) EOS x10^3 (test code = 0.14 10*3/uL 0.03-0.39 711-2) BASO x10^3 (test code 0.01-0.07 = 704-7) Lab Interpretation Abnormal (test code = 27046-3) [facility] HEMOGLOBIN A1C [id number] 15:15:00 Test Item Value Reference Range Interpretation Comments POCT HBA1C (test code = 4548-4) 7.6 % 4-6 A Lab Interpretation (test code = Abnormal 60318-8) [facility] HEMOGLOBIN A1C [id number] 15:15:00 Test Item Value Reference Range Interpretation Comments POCT HBA1C (test code = 4548-4) 7.6 % 4-6 A Lab Interpretation (test code = Abnormal 74435-6) [facility]
[2022-07-15] MEDS ORDERED: FUROSEMIDE 40 MG/4 ML VIAL ONE (09:41)
[2022-07-15] MEDS ORDERED: LEVALBUTEROL 1.25 MG/3 ML NEB ONE (09:41)
[2022-07-15 09:42] LABS: Absolute Lymphocytes (CBC) 1.4 K/uL (0.7-4.9); Hematocrit 27.9 % (36.0-45.0); Lymphocytes % 20.5 % (15.3-44.8); MCV 94.5 fL (80-100); MPV 10.3 fL (7.6-11.3); RBC Red Blood Cell Count 2.95 M/uL (3.86-4.86)
[2022-07-15 09:46] LABS: Protime INR 1.45
[2022-07-15 09:58] LABS: Potassium 4.2 mEq/L (3.5-5.1); Troponin High Sensitivity 27.1 pg/mL (<58.9)
--- NOTE | 2022-07-15 10:40 | RAD REPORT ---
EXAM DESCRIPTION: RADChest Single View07/15/2022 10:22 am CLINICAL HISTORY: SOB COMPARISON: Chest Single View dated 07/04/2022; Chest Single View dated 06/24/2022; Chest Single View d ated 05/22/2022; Chest Single View dated 05/17/2022 TECHNIQUE: Portable AP view of the chest. FINDINGS: The lungs show no new focal consolidation. Continued partial interval improvement of centr al and basal predominant interstitial opacities. Some prominence of the central vasculature remains. No pneumothorax or effusion. Left chest wall pacer/ AICD unchanged in position. The cardiomediastina l contours are unchanged. IMPRESSION: No acute cardiopulmonary process. Slightly improved central and basal interstitial opac ities.
--- NOTE | 2022-07-15 12:27 | EDPHYS ---
Physician Documentation [facility] Name: Teena Simpson Age: 77 yrs Sex: Female : 1945 Arrival Date: 07/15/2022 Time: 09:04 Bed 3 Private MD: ED Physician Luis Alberto Perez HPI: 07/15 09:10 This 77 yrs old Female presents to ER via Ambulatory with complaints of jmm Shortness Of Breath. 09:10 The patient has shortness of breath with light activity. Onset: The symptoms/episode jmm began/occurred gradually, 1 week(s) ago. Is a 77-year-old female with history of anxiety, atrial fibrillation, CHF, diabetes mellitus, hyperlipidemia, hypertension the presents emerged department with complaints of aggressive worsening shortness of breath over the past week. Denies fever chills. States having increased swelling in her legs. Patient takes 40 mg of furosemide daily. Denies chest pain. Historical: - Allergies: 09:19 Augmentin; nj1 09:19 Cipro; nj1 09:19 Keppra; nj1 - PMHx: 09:19 Anxiety; Atrial Fib; CHF; Diabetes - IDDM; High Cholesterol; Hypertension; Kidney nj1 failure stage 4; Low HR; Myocardial infarction; neuropathy; Seizures; - PSHx: 09:19 Appendectomy; Pacemaker-Defib; Hemorrhoidectomy; nj1 - Immunization history:: Client reports receiving the 2nd dose of the Covid vaccine. - Social history:: Smoking status: Patient denies any tobacco usage or history of. ROS: 09:10 Constitutional: Negative for fever, chills, and weight loss, Cardiovascular: Negative jmm for chest pain, palpitations, and edema. 09:10 Respiratory: Positive for shortness of breath. 09:10 MS/extremity: Positive for swelling. 09:10 All other systems are negative. Exam: 09:10 Constitutional: This is a well developed, well nourished patient who is awake, alert, jmm and in no acute distress. Head/Face: atraumatic. Eyes: EOMI, no conjunctival erythema appreciated ENT: Moist Mucus Membranes Neck: Trachea midline, Supple Chest/axilla: Normal chest wall appearance and motion. Cardiovascular: Regular rate and rhythm. No edema appreciated Respiratory: Normal respirations, no respiratory distress appreciated Abdomen/GI: Non distended Back: Normal ROM Skin: General appearance color normal 09:10 Musculoskeletal/extremity: Bilateral pedal edema appreciated, compartments are soft, full dorsalis pedis pulse, neurovascular intact. 09:10 Skin: Appearance: Color: normal in color. 09:10 Neuro: Motor: is normal. 09:10 Psych: Behavior/mood is pleasant, cooperative. Vital Signs: 09:05 BP 132 / 68; Pulse 90; Resp 18; Pulse Ox 100% ; ko1 09:11 BP 125 / 70; Pulse 89; Resp 18 S; Temp 97.7(O); Pulse Ox 100% on R/A; Weight 80.29 kg; nj1 Height 5 ft. 0 in. ; Pain 0/10; 10:30 BP 126 / 66; Pulse 88; Resp 18; Pulse Ox 99% ; ko1 12:30 BP 114 / 64; Pulse 89; Resp 18; Pulse Ox 98% ; ko1 09:11 Body Mass Index 34.57 (80.29 kg, 152.4 cm) nj1 09:11 Pain Scale: Adult nj1 MDM: 09:10 Patient medically screened. jann 15:56 Differential diagnosis: Anemia CHF exacerbation, Myocardial Infarction pneumonia, [facility] pulmonary edema, Pulmonary Embolism. Data reviewed: vital signs, nurses notes, lab test result(s), radiologic studies, plain films. Consideration of Admission/Observation Escalation of care including admission/observation considered. I considered the following discharge prescriptions or medication management in the emergency department Medications were administered in the Emergency Department. See MAR. Independent interpretation of the following test(s) in the Emergency Department X-Ray: My interpretation is No pneumothorax appreciated. Historians other than the Patient: Daughter. Counseling: I had a detailed discussion with the patient and/or guardian regarding: the historical points, exam findings, and any diagnostic results supporting the discharge/admit diagnosis, lab results, radiology results, the need for outpatient follow up, to return to the emergency department if symptoms worsen or persist or if there are any questions or concerns that arise at home. ED course: Patient states much better after administration of furosemide. Vital signs within normal limits. I do not currently suspect pulmonary embolism. No unilateral swelling appreciated leg, nontachycardic. Family given strict return precautions. Family understood and agrees to plan of care. 07/15 09:19 Order name: Basic Metabolic Panel; Complete Time: 09:58 [facility] 07/15 09:19 Order name: CBC with Diff; Complete Time: 09:45 [facility] 07/15 09:19 Order name: NT PRO-BNP; Complete Time: 09:58 [facility] 07/15 09:19 Order name: PT-INR; Complete Time: 09:46 [facility] 07/15 09:19 Order name: Troponin HS; Complete Time: 09:58 [facility] 07/15 09:19 Order name: XRAY Chest (1 view); Complete Time: 10:41 [facility] 07/15 09:19 Order name: EKG; Complete Time: 09:20 [facility] 07/15 09:19 Order name: Cardiac monitoring; Complete Time: 09:23 [facility] 07/15 09:19 Order name: EKG - Nurse/Tech; Complete Time: 09:42 [facility] 07/15 09:19 Order name: IV Saline Lock; Complete Time: 09:32 [facility] 07/15 09:19 Order name: Labs collected and sent; Complete Time: 09:32 [facility] 07/15 09:19 Order name: O2 Per Protocol; Complete Time: 09:23 [facility] 07/15 09:19 Order name: O2 Sat Monitoring; Complete Time: 09:23 [facility] 07/15 11:29 Order name: Misc. Order: ambulate, o2 [facility] Administered Medications: 09:42 Drug: Furosemide IVP 40 mg Route: IVP; Site: right antecubital; ko1 09:42 Drug: Levalbuterol Inhalation 1.25 mg Route: Inhalation; ko1 Disposition Summary: 07/15/22 12:26 Discharge Ordered Location: Home [facility] Condition: Stable [facility] Diagnosis - Acute on chronic combined systolic (congestive) and diastolic (congestive) heart [facility] failure Followup: [facility] - With: Private Physician - When: 2 - 3 days - Reason: Recheck today's complaints, Continuance of care, Re-evaluation by your physician Discharge Instructions: - Discharge Summary Sheet [facility] - Heart Failure Exacerbation [facility] Forms: - Medication Reconciliation Form [facility] - Thank You Letter [facility] - Antibiotic Education [facility] - Prescription Opioid Use [facility] Prescriptions: - albuterol sulfate 90 mcg/actuation Inhalation HFA Aerosol Inhaler - inhale 2 puff by INHALATION route every 4 hours As needed administer via [facility] ventilator; 1 unit; Refills: 0, Product Selection Permitted Signatures: Dispatcher [employer] Luis Alberto Soni MD MD cha Mickail, Joel, PA PA jmm Oliver, Kathy, RN RN ko1 Arianna Dozier RN RN nj1
--- NOTE | 2022-07-15 12:27 | ER ---
Nurse's Notes [facility] Name: Teena Simpson Age: 77 yrs Sex: Female : 1945 Arrival Date: 07/15/2022 Time: 09:04 Bed 3 Private MD: Diagnosis: Acute on chronic combined systolic (congestive) and diastolic (congestive) heart failure Presentation: 07/15 09:11 Chief complaint: Patient states: Shortness of breath since yesterday, worse when laying nj1 flat. Discharge from here for hemorrhoidectomy on Sunday. 09:11 Method Of Arrival: Ambulatory [facility] 09:11 Coronavirus screen: Vaccine status: Patient reports receiving the 2nd dose of the covid nj1 vaccine. Ebola Screen: Patient denies travel to an Ebola-affected area in the 21 days before illness onset. Initial Sepsis Screen: Does the patient meet any 2 criteria? No. Patient's initial sepsis screen is negative. Does the patient have a suspected source of infection? No. Patient's initial sepsis screen is negative. Risk Assessment: Do you want to hurt yourself or someone else? Patient reports no desire to harm self or others. Onset of symptoms was July 14, 2022. 09:11 Acuity: TYSON 3 nj1 Triage Assessment: 09:30 General: Appears in no apparent distress. uncomfortable, Behavior is calm, cooperative, ko1 appropriate for age. Respiratory: Reports shortness of breath at rest the patient has moderate shortness of breath. 12:38 Respiratory: Onset: The symptoms/episode began/occurred. 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 - Social history:: Smoking status: Patient denies any tobacco usage or history of. Screenin:05 [facility] ED Fall Risk Assessment (Adult) History of falling in the last 3 months, ko1 including since admission No falls in past 3 months (0 pts) Confusion or Disorientation No (0 pts) Intoxicated or Sedated No (0 pts) Impaired Gait No (0 pts) Mobility Assist Device Used No (0 pt) Altered Elimination No (0 pt) Score/Fall Risk Level 0 - 2 = Low Risk Oriented to surroundings, Maintained a safe environment, Educated pt \T\ family on fall prevention, incl call for assistance when getting out of bed, Assessed \T\ reinforced patient's understanding of fall precautions, Provided non-skid footwear, Hourly rounding (assess needs \T\ fall precautionary measures) done, Used ambulatory aids as needed (educated on \T\ assisted with), Used gait belt as appropriate. Abuse screen: Denies threats or abuse. Denies injuries from another. Nutritional screening: No deficits noted. Tuberculosis screening: No symptoms or risk factors identified. Assessment: 09:05 General: Appears in no apparent distress. comfortable, Behavior is calm, cooperative, ko1 appropriate for age. Pain: Denies pain. Neuro: No deficits noted. Cardiovascular: Rhythm is Respiratory: Airway is patent Respiratory effort is even, unlabored, Breath sounds with crackles bilaterally. GI: No deficits noted. : No deficits noted. EENT: No deficits noted. Derm: No deficits noted. Musculoskeletal: No deficits noted. Vital Signs: 09:05 BP 132 / 68; Pulse 90; Resp 18; Pulse Ox 100% ; ko1 09:11 BP 125 / 70; Pulse 89; Resp 18 S; Temp 97.7(O); Pulse Ox 100% on R/A; Weight 80.29 kg; nj1 Height 5 ft. 0 in. ; Pain 0/10; 10:30 BP 126 / 66; Pulse 88; Resp 18; Pulse Ox 99% ; ko1 12:30 BP 114 / 64; Pulse 89; Resp 18; Pulse Ox 98% ; ko1 09:11 Body Mass Index 34.57 (80.29 kg, 152.4 cm) nj1 09:11 Pain Scale: Adult [facility] ED Course: 09:05 Patient has correct armband on for positive identification. Placed in gown. Bed in low ko1 position. Call light in reach. Side rails up X2. Client placed on continuous cardiac and pulse oximetry monitoring. NIBP monitoring applied. panel monitor on. Door closed. Noise minimized. Lights dimmed. Warm blanket given. 09:07 Patient arrived in ED. am2 09:09 Ana Montesinos, RN is Primary Nurse. ko1 09:10 Ritchie Gomez PA is PHCP. [facility] 09:10 Luis Alberto Perez MD is Attending Physician. [facility] 09:19 Triage completed. nj1 09:20 Arm band placed on. nj1 09:30 Initial Neb Treatment Given as ordered Unable to instruct patient due to physical ko1 barriers, family/caregiver was instructed on procedure. Inserted saline lock: 22 gauge in right antecubital area, using aseptic technique. Blood collected. 09:32 Basic Metabolic Panel Sent. ko1 09:32 CBC with Diff Sent. ko1 09:32 NT PRO-BNP Sent. ko1 09:32 PT-INR Sent. ko1 09:32 Troponin HS Sent. ko1 10:24 XRAY Chest (1 view) In Process Unspecified. EDMS 12:30 No provider procedures requiring assistance completed. IV discontinued, intact, ko1 bleeding controlled, No redness/swelling at site. Pressure dressing applied. Administered Medications: 09:42 Drug: Furosemide IVP 40 mg Route: IVP; Site: right antecubital; ko1 09:42 Drug: Levalbuterol Inhalation 1.25 mg Route: Inhalation; ko1 Medication: 12:30 VIS not applicable for this client. ko1 Intake: 12:30 PO: 0ml; IV: 0ml; Total: 0ml. ko1 Output: 12:30 Urine: 975ml (Voided); Total: 975ml. ko1 Outcome: 12:26 Discharge ordered by MD. [facility] 12:30 Discharged to home via wheelchair, with family. ko1 12:30 Condition: improved 12:30 Discharge instructions given to patient, family, Instructed on discharge instructions, follow up and referral plans. medication usage, Demonstrated understanding of instructions, follow-up care, medications, Prescriptions given X 1. 12:44 Patient left the ED. ko1 Signatures: Dispatcher [employer] EDHI Ritchie Gomez PA PA jmm Moreno, Amanda am2 Ana Montesinos, RN RN ko1 Arianna Dozier RN RN nj1
[2022-07-15 13:05] VITALS: TEMP 97.7
[2022-07-15 13:07] VITALS: BP 114/64; O2SAT 98
--- NOTE | 2022-07-16 07:28 | EKG ---
Test Date: 2022-07-15 Test Time: 09:41:37 Billiard Player: HB MEASUREMENT RESULTS: Intervals: Rate: 90 SC: 96 QRSD: 158 QT: 454 QTc: 555 [place]: P: 116 SC: 96 QRS: -81 T: 119 INTERPRETIVE STATEMENTS: AV sequential or dual chamber electronic pacemaker Compared to ECG 07/04/2022 08:15:42 Ventricular-paced complex(es) or rhythm no longer present Electronically Signed On 07-16-22 07:25:27 CDT by Ross Graf
== END 2022-07-15 12:44 | disposition home or self-care (01) ==
LOC: ER 09:04
DX: I50.43 Acute on chronic combined systolic (congestive) and diastolic (congestive) heart failure (principal); E11.22 Type 2 diabetes mellitus with diabetic chronic kidney disease; N18.4 Chronic kidney disease, stage 4 (severe); I10 Essential (primary) hypertension; Z95.810 Presence of automatic (implantable) cardiac defibrillator; Z88.1 Allergy status to other antibiotic agents
CPT/HCPCS: 93005; 85025; 80048; 36415; 85610; 84484; 83880; 71045; 96374; 99285; J7614; J1940

== ENCOUNTER 2022-07-19 22:13 | Observation (INO) | payer OTHER ==
[2022-07-19 23:45] LABS: Urine Bacteria <20 /HPF (<20); Urine Bilirubin NEGATIVE (Negative); Urine Blood Negative (Negative); Urine Clarity Clear (Clear); Urine Color Light-Yellow (Yellow); Urine Glucose NEGATIVE (Negative); Urine Protein TRACE (Negative); Urine RBC <5 /HPF (None Seen); Urine Urobilinogen Normal (Normal); Urine pH 6.5 (5.0-7.0)
[2022-07-19 23:54] LABS: SARS-CoV-2 Antigen Rapid Res Negative (Negative)
[2022-07-20 00:40] LABS: Absolute Lymphocytes (CBC) 1.6 K/uL (0.7-4.9); Hematocrit 28.5 % (36.0-45.0); Lymphocytes % 17.6 % (15.3-44.8); MCV 94.6 fL (80-100); MPV 10.4 fL (7.6-11.3); Protime INR 1.3; RBC Red Blood Cell Count 3.01 M/uL (3.86-4.86)
[2022-07-20 00:50] LABS: Albumin 3.2 g/dL (3.4-5.0); Bilirubin Direct 0.1 mg/dL (0-0.2); Bilirubin Indirect, Calculated 0.2 mg/dL (0.2-0.8); Bilirubin Total 0.3 mg/dL (0.2-1.0); Magnesium 2.2 mg/dL (1.6-2.4); Potassium 4.1 mEq/L (3.5-5.1); Protein, Total 7.3 g/dL (6.4-8.2); Troponin High Sensitivity 36.2 pg/mL (<58.9)
--- NOTE | 2022-07-20 01:17 | ER ---
Nurse's Notes [facility] Name: Teena Simpson Age: 77 yrs Sex: Female : 1945 Arrival Date: 07/19/2022 Time: 22:13 Bed 18 Private MD: Diagnosis: Orthopnea;Acute on chronic combined systolic (congestive) and diastolic (congestive) heart failure;Unspecified kidney failure Presentation: 07/19 22:22 Chief complaint: Patient states: fever, headache, back ache x3 days. Coronavirus as6 screen: Client presents with at least one sign or symptom that may indicate coronavirus-19. Ebola Screen: No symptoms or risks identified at this time. Initial Sepsis Screen: Does the patient meet any 2 criteria? No. Patient's initial sepsis screen is negative. Does the patient have a suspected source of infection? No. Patient's initial sepsis screen is negative. Risk Assessment: Do you want to hurt yourself or someone else? Patient reports no desire to harm self or others. Onset of symptoms was July 16, 2022. 22:22 Method Of Arrival: Ambulatory as6 22:22 Acuity: TYSON 3 as6 Triage Assessment: 22:27 General: Appears in no apparent distress. comfortable, Behavior is calm, cooperative, as6 Reports fever for feeling ill for. Pain: Complains of pain in back and neck. Historical: - Allergies: 22:26 Cipro; as6 22:26 Augmentin; as6 22:26 Keppra; as6 - PMHx: 22:26 Anxiety; Hypertension; Myocardial infarction; High Cholesterol; Diabetes - IDDM; Kidney as6 failure stage 4; Low HR; neuropathy; Seizures; Atrial Fib; CHF; - PSHx: 22:26 Appendectomy; Hemorrhoidectomy; Pacemaker-Defib; as6 - Immunization history:: Client reports receiving the 2nd dose of the Covid vaccine, moderna. - Social history:: Smoking status: Patient denies any tobacco usage or history of. Screenin:27 [facility] ED Fall Risk Assessment (Adult) Score/Fall Risk Level 0 - 2 = Low Risk. Abuse as6 screen: Denies threats or abuse. Denies injuries from another. Nutritional screening: No deficits noted. Tuberculosis screening: No symptoms or risk factors identified. Assessment: 23:32 Reassessment: Patient appears in no apparent distress at this time. Patient and/or kl family updated on plan of care and expected duration. Pain level reassessed. Patient is alert, oriented x 3, equal unlabored respirations, skin warm/dry/pink. Patient denies pain at this time. 07/20 00:22 General: Appears in no apparent distress. Behavior is calm, cooperative. Pain: kl Complains of pain in neck and back Pain currently is 3 out of 10 on a pain scale. Neuro: No deficits noted. Cardiovascular: No deficits noted. Respiratory: No deficits noted. Reports shortness of breath on exertion. GI: No deficits noted. No signs and/or symptoms were reported involving the gastrointestinal system. : No deficits noted. No signs and/or symptoms were reported regarding the genitourinary system. EENT: No deficits noted. No signs and/or symptoms were reported regarding the EENT system. Derm: No deficits noted. No signs and/or symptoms reported regarding the dermatologic system. 01:19 Reassessment: Patient appears in no apparent distress at this time. Patient and/or kl family updated on plan of care and expected duration. Pain level reassessed. Patient is alert, oriented x 3, equal unlabored respirations, skin warm/dry/pink. 01:32 Reassessment: pt ambulated around nurses station O2 sat 93% on room air pulse 102 no kl respiratory distress noted nor pt complaints expressed tolerated well. 01:33 Reassessment: pt requesting pain med for neck pain. 02:44 Reassessment: Patient appears in no apparent distress at this time. Patient and/or kl family updated on plan of care and expected duration. Pain level reassessed. Patient is alert, oriented x 3, equal unlabored respirations, skin warm/dry/pink. Patient denies pain at this time. Vital Signs: 07/19 22:22 BP 120 / 60; Pulse 93; Resp 18; Temp 99.6(O); Pulse Ox 94% on R/A; Weight 80.74 kg (R); as6 Height 5 ft. 0 in. (R); Pain 11/28; 07/20 01:19 BP 139 / 65; Pulse 82; Resp 20; Pulse Ox 99% on R/A; kl 02:34 BP 142 / 73; Pulse 90; Resp 19; Pulse Ox 95% on R/A; kl 07/19 22:22 Body Mass Index 34.76 (80.74 kg, 152.4 cm) as6 07/19 22:22 Pain Scale: Adult as6 ED Course: 07/19 22:17 Patient arrived in ED. ja2 22:18 Luis Alberto Orozco PA is PHCP. cp 22:18 Jacky Casper MD is Attending Physician. cp 22:22 Arm band placed on. as6 22:26 Triage completed. as6 22:42 Urinalysis w/ reflexes Sent. rv1 22:42 Influenza Screen (a \T\ B) Sent. rv1 22:42 SARS RAPID Sent. rv1 22:56 XRAY Chest (1 view) In Process Unspecified. EDMS 23:32 Patient has correct armband on for positive identification. Placed in gown. Bed in low kl position. Call light in reach. Side rails up X2. 23:56 Missed attempt(s): 22 gauge in left in right wrist. forearm. upper arm. kl 07/20 00:10 Inserted saline lock: 20 gauge in right antecubital area, using aseptic technique. as6 Blood collected. ultrasound guided, long catheter. 00:11 Lactate w/ 2H reflex if indic. Sent. as6 00:11 Basic Metabolic Panel Sent. as6 00:11 CBC with Diff Sent. as6 00:11 LFT's Sent. as6 00:11 Magnesium Sent. as6 00:11 NT PRO-BNP Sent. as6 00:11 PT-INR Sent. as6 00:11 Troponin HS Sent. as6 00:32 US Extremity Venous W Compression [place] In Process Unspecified. EDMS 01:16 Mina Peralta is Hospitalizing Provider. cp 01:37 Mina Peralta is Hospitalizing Provider. cp 02:45 No provider procedures requiring assistance completed. Patient admitted, IV remains in kl place. Administered Medications: 01:18 Drug: Furosemide IVP 40 mg Route: IVP; Site: right antecubital; kl 01:35 Follow up: Response: No adverse reaction kl 02:17 Drug: Acetaminophen PO 650 mg Route: PO; kl 02:17 Drug: traMADol PO 50 mg Route: PO; kl Medication: 07/19 23:32 VIS not applicable for this client. kl Outcome: 07/20 01:17 Decision to Hospitalize by Provider. cp 01:39 Decision to Hospitalize by Provider. cp 02:45 Admitted to Med/surg via wheelchair. kl 02:45 Condition: stable 02:45 Discharge instructions given to patient, family, Instructed on the need for admit, Demonstrated understanding of instructions. 03:06 Patient left the ED. kl Signatures: Dispatcher [employer] EDViri Marques RN RN Luis Alberto Cortés, ONDINA PA Kathy Wong Ashby, RN RN as6 Josephine Paulson [facility]
--- NOTE | 2022-07-20 01:17 | EDPHYS ---
Physician Documentation [facility] Name: Teena Simpson Age: 77 yrs Sex: Female : 1945 Arrival Date: 07/19/2022 Time: 22:13 Bed 18 Private MD: ED Physician Jacky Casper HPI: 07/19 22:40 This 77 yrs old Female presents to ER via Ambulatory with complaints of Leg cp Swelling, Feet Swelling, Ankle Swelling. 22:40 The patient presents with swelling. The complaints affect the right foot and left foot cp and right ankle and left ankle. 22:40 Context: resulted from an unknown cause, the patient can fully bear weight, the patient cp is able to ambulate, with mild difficulty. 22:40 Onset: The symptoms/episode began/occurred gradually. cp 22:40 Associated signs and symptoms: Pertinent positives: fever, headache, back pain times 3 cp days and shortness of breath when lying down. Historical: - Allergies: 22:26 Cipro; as6 22:26 Augmentin; as6 22:26 Keppra; as6 - PMHx: 22:26 Anxiety; Hypertension; Myocardial infarction; High Cholesterol; Diabetes - IDDM; Kidney as6 failure stage 4; Low HR; neuropathy; Seizures; Atrial Fib; CHF; - PSHx: 22:26 Appendectomy; Hemorrhoidectomy; Pacemaker-Defib; as6 - Immunization history:: Client reports receiving the 2nd dose of the Covid vaccine, moderna. - Social history:: Smoking status: Patient denies any tobacco usage or history of. ROS: 22:45 Constitutional: Negative for body aches, chills, fever, poor PO intake. cp 22:45 Cardiovascular: Positive for edema, Negative for chest pain, palpitations. 22:45 Respiratory: Positive for orthopnea, Negative for cough, wheezing. 22:45 Abdomen/GI: Negative for abdominal pain. Exam: 22:50 Head/Face: Normocephalic, atraumatic. cp 22:50 Constitutional: The patient appears in no acute distress, alert, awake, non-toxic, well developed, well nourished. 22:50 Eyes: Periorbital structures: appear normal, Conjunctiva: normal, no exudate, no injection, Sclera: no appreciated abnormality, Lids and lashes: appear normal, bilaterally. 22:50 ENT: External ear(s): are unremarkable, Nose: is normal, Mouth: Lips: moist, Oral mucosa: pink and intact, moist, Posterior pharynx: is normal, airway is patent, no erythema, no exudate. 22:50 Neck: ROM/movement: is normal, is supple, no range of motions limitations, no meningismus, no nuchal rigidity. 22:50 Chest/axilla: Inspection: normal. 22:50 Cardiovascular: Rate: normal, Rhythm: regular, Edema: pedal edema, that is mild, ankle edema, that is mild, JVD: is not appreciated. 22:50 Respiratory: the patient does not display signs of respiratory distress, Respirations: labored breathing, that is mild, Breath sounds: decreased breath sounds, that are mild, throughout, stridor, is not appreciated, wheezing: is not appreciated. 22:50 Abdomen/GI: Inspection: abdomen appears normal, Palpation: abdomen is soft and non-tender, in all quadrants. 22:50 Back: pain, that is mild, ROM is normal. 22:50 Skin: cellulitis, is not appreciated, no rash present. 22:50 Neuro: Orientation: is normal, Mentation: is normal, Motor: moves all fours, strength is normal. Vital Signs: 22:22 BP 120 / 60; Pulse 93; Resp 18; Temp 99.6(O); Pulse Ox 94% on R/A; Weight 80.74 kg (R); as6 Height 5 ft. 0 in. (R); Pain 10/10; 06 01:19 BP 139 / 65; Pulse 82; Resp 20; Pulse Ox 99% on R/A; kl 02:34 BP 142 / 73; Pulse 90; Resp 19; Pulse Ox 95% on R/A; kl 07/19 22:22 Body Mass Index 34.76 (80.74 kg, 152.4 cm) as6 07/19 22:22 Pain Scale: Adult as6 MDM: 07/19 22:31 Patient medically screened. cp 07/20 01:05 Data reviewed: vital signs, nurses notes, lab test result(s), EKG, radiologic studies, cp plain films, ultrasound. 01:05 Antibiotic administration: Not indicated, the patient does not have an appreciated cp infiltrate. I considered the following discharge prescriptions or medication management in the emergency department Medications were administered in the Emergency Department. See APR. :30 Care significantly affected by the following chronic conditions: Diabetes, cp Hypertension, Chronic Kidney Disease. :30 Management of patient was discussed with the following: Hospitalist: Lnida Boo NP cp will admit after discussion. 07/19 22:32 Order name: SARS RAPID; Complete Time: 00:52 07/19 22:32 Order name: Influenza Screen (a \T\ B); Complete Time: 00:52 07/19 22:32 Order name: Urinalysis w/ reflexes; Complete Time: 00:52 07/20 00:52 Interpretation: Normal except: UPROT TRACE; UESTR 250; UWBC 20-50; REEP 5-10. 07/19 23:31 Order name: Basic Metabolic Panel; Complete Time: 00:52 07/20 00:52 Interpretation: Normal except: NA 135; GLUC 244; BUN 65; CRE 2.02; GFR 25; CA 8.1. 07/19 23:31 Order name: CBC with Diff; Complete Time: 00:52 07/20 00:53 Interpretation: Normal except: RBC 3.01; HGB 9.5; HCT 28.5. 07/19 23:31 Order name: LFT's; Complete Time: 00:52 07/20 01:04 Interpretation: Normal except: ALB 3.2; GLOB 4.1; A/G 0.8. 07/19 23:31 Order name: Magnesium; Complete Time: 00:52 07/19 23:31 Order name: NT PRO-BNP; Complete Time: 00:52 07/20 00:53 Interpretation: Abnormal: NT PRO-BNP 09204. 07/19 23:31 Order name: PT-INR; Complete Time: 00:52 07/19 23:31 Order name: Troponin HS; Complete Time: 00:52 07/19 23:31 Order name: Lactate w/ 2H reflex if indic.; Complete Time: 00:52 07/19 23:33 Order name: Blood Culture Adult (2) cp 07/19 23:54 Order name: Urine Culture EDMS 07/19 22:32 Order name: XRAY Chest (1 view) 07/19 23:31 Order name: US Extremity Venous W Compression [place] cp 07/19 23:31 Order name: EKG; Complete Time: 23:32 cp 07/19 23:31 Order name: Cardiac monitoring cp 07/19 23:31 Order name: EKG - Nurse/Tech; Complete Time: 23:44 cp 07/19 23:31 Order name: IV Saline Lock; Complete Time: 00:11 cp 07/19 23:31 Order name: Labs collected and sent; Complete Time: 00:11 cp 07/19 23:31 Order name: O2 Per Protocol 07/19 23:31 Order name: O2 Sat Monitoring cp 07/20 00:57 Order name: Misc. Order: ambulate with O2 monitor; Complete Time: 01:32 cp Administered Medications: 01:18 Drug: Furosemide IVP 40 mg Route: IVP; Site: right antecubital; kl 01:35 Follow up: Response: No adverse reaction kl 02:17 Drug: Acetaminophen PO 650 mg Route: PO; kl 02:17 Drug: traMADol PO 50 mg Route: PO; kl Disposition Summary: 07/20/22 01:39 Hospitalization Ordered Hospitalization Status: Inpatient Admission(07/20/22 01:39) cp Provider: Mina Peralta(07/20/22 01:39) cp Location: Telemetry/MedSurg (Inpatient)(07/20/22 01:39) cp Condition: Fair(07/20/22 01:39) cp Problem: an acute exacerbation(07/20/22 01:39) cp Symptoms: are unchanged(07/20/22 01:39) cp Bed/Room Type: Standard(07/20/22 01:39) cp Room Assignment: [facility](07/20/22 02:06) cg Diagnosis - Orthopnea cp - Acute on chronic combined systolic (congestive) and diastolic (congestive) heart cp failure(07/20/22 01:39) - Unspecified kidney failure(07/20/22 01:39) cp Forms: - Medication Reconciliation Form cp - SBAR form cp Signatures: Dispatcher [employer] EDViri Marques RN RN kl Page, Corey, PA PA cp Garcia, Cindy, RN RN cg Slawson, Ashby, RN RN as6 Corrections: (The following items were deleted from the chart) 32 01:17 Inpatient Admission cp cp :32 01:17 Mina Peralta cp cp : 01:17 Telemetry/MedSurg (Inpatient) cp cp : 01:17 Stable cp cp 01:17 an acute exacerbation cp cp 01:17 have improved cp cp : 01:17 Standard cp cp : 01:17 cp cp : 01:17 Acute on chronic combined systolic (congestive) and diastolic (congestive) heart cp failure cp 01:17 Dyspnea cp cp 01:18 Unspecified kidney failure cp cp 02: 01:39 cp cg 07/21 00:07/20 22:45 Constitutional: Negative for body aches, chills, fever, poor PO intake, cp cp 07/21 00:42 07/20 22:45 Cardiovascular: Positive for edema, Negative for chest pain, palpitations, cp cp 07/21 00:42 07/20 22:45 Respiratory: Positive for orthopnea, Negative for cough, wheezing, cp cp 07/21 00:42 07/20 22:45 Abdomen/GI: Negative for abdominal pain, cp cp
[2022-07-20] MEDS ORDERED: FUROSEMIDE 40 MG/4 ML VIAL ONE (01:22)
[2022-07-20] MEDS ORDERED: TRAMADOL HCL 50 MG TAB ONE (01:51)
[2022-07-20] MEDS ORDERED: ACETAMINOPHEN 325 MG TABLET ONE (01:51)
--- NOTE | 2022-07-20 01:55 | P.HP ---
Certification for Inpatient Patient admitted to: Observation With expected LOS: <2 Midnights Patient will require the following post-hospital care: None Practitioner: I am a practitioner with admitting privileges, knowledge of patient current condition, hospital course, and medical plan of care. Services: Services provided to patient in accordance with Admission requirements found in Title 42 Section 412.3 of the Code of Federal Regulations Patient History Date of Service: 07/20/22 Reason for admission: CHF Exacerbation History of Present Illness: Ms. Simpson is a 77 year old female with past medical history of insulin dependent type 2 diabetes, chronic kidney disease stage IV, chronic combined systolic/diastolic congestive heart failure, atrial fibrillation s/p PPM/AICD on eliquis, and hypertension who was presented to the emergency department with complaints of lower extremity swelling and shortness of breath. Saturating 94% on room air upon arrival. She states that she had an anoscopy and proctoscopy about 1 week ago and was told to double her lasix for a few days following, the last day of that being 2 days ago. Her labs are significant for hemoglobin 9.5, hematocrit 28.5, BUN 65, creatinine 2, BNP 16,000. Ultrasound negative for DVT in bilateral lower extremities. Chest x-ray showed "Cardiomegaly with diffuse bilateral interstitial opacities likely related to pulmonary edema." EKG without any acute changes. She is not requiring supplemental oxygen at this time, but cannot tolerate lying flat. In the emergency department, she was given 40 mg IV lasix. Given her worsening pulmonary edema and orthopnea, ED provider wishes admit patient for further management patient. Allergies amoxicillin [From Augmentin] Adverse Reaction (Verified 05/06/22 04:49) Nausea/Vomiting ciprofloxacin Adverse Reaction (Verified 05/06/22 04:49) Nausea/Vomiting clavulanic acid [From Augmentin] Adverse Reaction (Verified 05/06/22 04:49) Nausea/Vomiting Home Medications: Atorvastatin Calcium [Lipitor] 40 mg PO BEDTIME 08/07/21 Insulin NPH Human Isophane [Novolin N] 30 unit SQ 0800,2000 08/07/21 PHENYTOIN ER Cap [Dilantin ER Cap*] 100 mg PO BID 08/07/21 Metoprolol Succinate [Toprol Xl*] 50 mg PO BID 6AM 6PM #60 tab 05/09/22 Furosemide [Lasix*] 40 mg PO DAILY #30 tab 06/26/22 Sacubitril/Valsartan [Entresto 24 mg-26 mg Tablet] 1 tab PO SEECOM 07/10/22 Apixaban [Eliquis] 5 mg PO DAILY 07/12/22 - Past Medical/Surgical History Diabetic: Yes -: Seizures -: Atrial fibrillation on chronic anticoagulation -: Diabetes mellitus type 2insulin-dependent -: Hypertension -: Hyperlipidemia -: Chronic systolic congestive heart failure -: CAD -: CKD 4 -: defib/pacemaker placement x2 -: exploratory lap -: appendectomy Psychosocial/ Personal History: Patient lives at home with family - Family History Father -: Lung disease Mother -: Heart disease, Hypertension, Diabetes Sister -: Diabetes Brother -: Diabetes, Kidney disease - Social History Smoking Status: Never smoker Alcohol use: No CD- Drugs: No Caffeine use: No Place of Residence: Home Review of Systems General: Fever Respiratory: Shortness of Breath Cardiovascular: Orthopnea Musculoskeletal: Back Pain Physical Examination - Vital Signs Temperature: 99.6 F Blood Pressure: 139/65 Pulse: 82 Respirations: 20 Pulse Ox (%): 95 - Physical Exam General: Alert, In no apparent distress HEENT: Atraumatic, EOMI, Sclerae nonicteric Neck: Supple, 2+ carotid pulse no bruit Respiratory: Crackles/rales Cardiovascular: Regular rate/rhythm, Normal S1 S2 Gastrointestinal: Normal bowel sounds, No tenderness Musculoskeletal: No tenderness Integumentary: No rashes Neurological: Normal gait, Normal speech, Normal affect - Studies Laboratory Data (last 24 hrs) 07/20/22 00:08: PT 14.3 H, INR 1.30 07/20/22 00:08: WBC 9.30, Hgb 9.5 L, Hct 28.5 L, Plt Count 174 07/20/22 00:08: Sodium 135 L, Potassium 4.1, BUN 65 H, Creatinine 2.02 H, Glucose 244 H, Magnesium 2.2, Total Bilirubin 0.3, AST 17, ALT 24, Alkaline Phosphatase 99 Microbiology Data (last 24 hrs): 07/19/22 22:37 Nasopharnyx Influenza Type A Antigen Screen - Final 07/19/22 22:37 Nasopharnyx Influenza Type B Antigen Screen - Final Assessment and Plan - Problems (Diagnosis) (1) CHF (congestive heart failure) Current Visit: Yes Status: Chronic Qualifiers: Heart failure type: systolic Heart failure chronicity: acute on chronic Qualified Code(s): I50.23 - Acute on chronic systolic (congestive) heart failure (2) Atrial fibrillation Current Visit: Yes Status: Chronic Qualifiers: Atrial fibrillation type: paroxysmal Qualified Code(s): I48.0 - Paroxysmal atrial fibrillation (3) CKD (chronic kidney disease) Current Visit: Yes Status: Chronic Qualifiers: Chronic kidney disease stage: stage 4 (severe) Qualified Code(s): N18.4 - Chronic kidney disease, stage 4 (severe) (4) Coronary artery disease Current Visit: Yes Status: Chronic Qualifiers: Coronary Disease-Associated Artery/Lesion type: enterprise artery [place] vs. transplanted heart: enterprise heart Associated angina: without angina Qualified Code(s): I25.10 - Atherosclerotic heart disease of enterprise coronary artery without angina pectoris (5) Diabetes Current Visit: Yes Status: Chronic Qualifiers: Diabetes mellitus type: type 2 Diabetes mellitus nursing home insulin use: with manager intermediate use Diabetes mellitus complication status: with hyperglycemia Qualified Code(s): E11.65 - Type 2 diabetes mellitus with hyperglycemia; Z79.4 - termination clerk (current) use of insulin (6) Hypertension Current Visit: Yes Status: Chronic Qualifiers: Hypertension type: primary hypertension Qualified Code(s): I10 - Essential (primary) hypertension - Plan Patient is admitted for further management of acute on chronic systolic congestive heart failure. Chest xray with pulmonary congestion and bilateral extremity edema present. She received 40 mg IV lasix in ED. Continue diuresing. Crackles on auscultation. She is not requiring supplemental O2. Nebs PRN. Covid/flu negative. 1200 cc/day fluid restriction. Daily weights. Monitor intake and outut. She states she does not monitor/restrict her fluid intake at home. Echo 2 months ago demonstrated an EF of 25-30%. Monitor on telemetry. Resume eliquis for VTE prophylaxis. [facility] accu checks with moderate sliding scale and diabetic diet. Check A1c, lipid panel, and TSH. Kidney function appears around baseline. Monitor and replete electrolytes per protocol. Reconcile and continue home medications. Full code. Discharge Plan: Home Plan to discharge in: 24 Hours - Advance Directives Does patient have a Living Will: No Does patient have a Durable POA for Healthcare: Yes - Code Status/Comfort Care Code Status Assessed: Yes Code Status: Full Code Physician Review: Patient Assessed, Agree with Above Assessment and Plan Critical Care: No Time Spent Managing Pts Care (In Minutes): 50
[2022-07-20] MEDS ORDERED: ALBUTEROL 2.5 MG/3 ML NEB SOL NEB PRN ×2 (03:12→14:00)
[2022-07-20] MEDS ORDERED: ONDANSETRON 4 MG/2 ML VIAL IV PRN (03:12)
[2022-07-20] MEDS ORDERED: ACETAMINOPHEN 500 MG TAB PO PRN (03:12)
[2022-07-20 03:31] VITALS: O2SAT 95
[2022-07-20 03:59] VITALS: BMI 34.8
[2022-07-20] MEDS: INSULIN -REGULAR HUMAN 50 UNIT/0.5 ML ML SQ SCH ×2 (08:51→12:38)
[2022-07-20] MEDS ORDERED: FUROSEMIDE 40 MG/4 ML VIAL IV SCH (09:00)
[2022-07-20] MEDS ORDERED: ASPIRIN EC 81 MG TAB PO SCH (09:00)
[2022-07-20] MEDS ORDERED: APIXABAN 5 MG TABLET PO SCH (09:00)
--- NOTE | 2022-07-20 11:34 | CON ---
Date of Consultation: 07/20/[address] Peralta with CHF on 07/20/2022. I saw the patient on 07/20/2022. History Of Present Illness: Ms. Simpson is 77, who was just in the hospital approximately a week or 2 ago for the same pain, comes back with COPD with shortness of breath, PND, orthopnea, pedal edema. N o palpitation. No syncope. No fever. No chills. No chest pain. She follows up with Dr. Bajwa. Cr eatinine is 2.102, hemoglobin 9.05, BNP 16,000, blood glucose 244. EKG is nonspecific. Chest x-ray showed failure. Ms. Simpson has severe systolic congestive heart failure. Allergies: SHE IS ALLERGIC TO CIPRO AND AUGMENTIN. Past Medical History: Includes diabetes, atrial fibrillation, congestive heart failure, hypertension , and seizure. Medications: At home include insulin, Eliquis, Lasix, Lipitor, metoprolol, Dilantin, and Entresto. Review of Systems: Negative. Social History: Negative. Family History: Negative. Physical Examination: Vital Signs: Stable, afebrile. She appears to be in no acute distress, sinus rhythm. HEENT: Negative. Neck: Supple with no bruit. Chest: Reveals rales both bases. Cardiac: Reveals S3 gallops. Abdomen: Benign. Extremities: Revealed trace edema. Diagnostic Data: As stated above. Impression And Plan: 1.Acute on chronic systolic congestive heart failure. 2.Paroxysmal atrial fibrillation. 3.Diabetes. 4.Dyslipidemia. 5.Hypertension. 6.Seizure disorder. 7.Renal insufficiency. 8.Anemia. 9.Elevated BNP. The patient is on appropriate medications. She is being diuresed and I think she c an tolerate the higher dose of Entresto with her creatinine being elevated. I think we need to edu nue beta-blockers, Entresto, and Lasix. She will continue to follow with Dr. Herrera. No further card iac recommendation at this point. She just had an echocardiogram, not long ago. NB/MODL Voice ID: [id number] Report ID: [id number]
--- NOTE | 2022-07-20 12:07 | EKG ---
Test Date: 2022-07-19 Test Time: 23:43:00 Book Or Script Editor: RV MEASUREMENT RESULTS: Intervals: Rate: 90 LA: 164 QRSD: 152 QT: 448 QTc: 548 [place]: P: 80 LA: 164 QRS: -68 T: 110 INTERPRETIVE STATEMENTS: Electronic ventricular pacemaker Compared to ECG 07/15/2022 09:41:37 AV dual-paced complex(es) or rhythm no longer present Electronically Signed On 07-20-22 12:05:53 CDT by Ross Graf
--- NOTE | 2022-07-20 13:54 | P.DS ---
Admission Date: 07/20/22 Discharge Date: 07/20/22 Disposition: ROUTINE DISCHARGE Discharge Condition: FAIR Reason for Admission: CHF Exacerbation - Problems (1) Acute on chronic systolic heart failure Current Visit: Yes Status: Acute (2) CKD (chronic kidney disease) Current Visit: Yes Status: Chronic Qualifiers: Chronic kidney disease stage: stage 4 (severe) Qualified Code(s): N18.4 - Chronic kidney disease, stage 4 (severe) (3) Diabetes Current Visit: Yes Status: Chronic Qualifiers: Diabetes mellitus type: type 2 Diabetes mellitus bed bug exterminator insulin use: with bed bug exterminator use Diabetes mellitus complication status: with hyperglycemia Qualified Code(s): E11.65 - Type 2 diabetes mellitus with hyperglycemia; Z79.4 - intermediate accountant (current) use of insulin Brief History of Present Illness: Ms. Simpson is a 77 year old female with past medical history of insulin dependent type 2 diabetes, chronic kidney disease stage IV, chronic combined systolic/diastolic congestive heart failure, atrial fibrillation s/p PPM/AICD on eliquis, and hypertension who was presented to the emergency department with complaints of lower extremity swelling and shortness of breath. Saturating 94% on room air upon arrival. She states that she had an anoscopy and proctoscopy about 1 week ago and was told to double her lasix for a few days following, the last day of that being 2 days ago. Her labs are significant for hemoglobin 9.5, hematocrit 28.5, BUN 65, creatinine 2, BNP 16,000. Ultrasound negative for DVT in bilateral lower extremities. Chest x-ray showed "Cardiomegaly with diffuse bilateral interstitial opacities likely related to pulmonary edema." EKG without any acute changes. She is not requiring supplemental oxygen at this time, but cannot tolerate lying flat. In the emergency department, she was given 40 mg IV lasix. Given her worsening pulmonary edema and orthopnea, patient was hospitalized for further management. Hospital Course: Patient placed under observation on the medical floor and treated with IV Lasix. Patient's shortness of breath improved, she remained stable on room air, she was no longer orthopneic. She ambulated in the hallway without difficulty. She was seen and evaluated by cardiology recommended medical management and to continue Entresto. Patient has clinically improved and deemed stable for discharge. Vital Signs/Physical Exam: Temp Pulse Resp BP Pulse Ox 97.6 F 92 H 14 134/64 97 07/20/22 08:00 07/20/22 08:53 07/20/22 08:00 07/20/22 08:53 07/20/22 08:00 General: Alert, In no apparent distress, Oriented x3 HEENT: Mucous membr. moist/pink Neck: Supple, JVD not distended Respiratory: Clear to auscultation bilaterally, Normal air movement Cardiovascular: No edema, Regular rate/rhythm, Normal S1 S2 Gastrointestinal: Normal bowel sounds, Soft and benign, Non-distended, No tenderness Musculoskeletal: No swelling Integumentary: No rashes, No cyanosis Neurological: Normal strength at 5/5 x4 extr Laboratory Data at Discharge: WBC 9.30 thou/uL (4.3-10.9) 07/20/22 00:08 Hgb 9.5 g/dL (12.0-15.0) L 07/20/22 00:08 Hct 28.5 % (36.0-45.0) L 07/20/22 00:08 Plt Count 174 thou/uL (152-406) 07/20/22 00:08 PT 14.3 SECONDS (9.5-12.5) H 07/20/22 00:08 INR 1.30 07/20/22 00:08 Sodium 135 mEq/L (136-145) L 07/20/22 00:08 Potassium 4.1 mEq/L (3.5-5.1) 07/20/22 00:08 BUN 65 mg/dL (7-18) H 07/20/22 00:08 Creatinine 2.02 mg/dL (0.55-1.02) H 07/20/22 00:08 Glucose 244 mg/dL (74-106) H 07/20/22 00:08 Magnesium 2.2 mg/dL (1.6-2.4) 07/20/22 00:08 Total Bilirubin 0.3 mg/dL (0.2-1.0) 07/20/22 00:08 AST 17 U/L (15-37) 07/20/22 00:08 ALT 24 U/L (13-56) 07/20/22 00:08 Alkaline Phosphatase 99 U/L (45-117) 07/20/22 00:08 Home Medications: Atorvastatin Calcium [Lipitor] 40 mg PO BEDTIME 08/07/21 Insulin NPH Human Isophane [Novolin N] 30 unit SQ 0800,199908/07/21 PHENYTOIN ER Cap [Dilantin ER Cap*] 100 mg PO BID 08/07/21 Metoprolol Succinate [Toprol Xl*] 50 mg PO BID 6AM 6PM #60 tab 05/09/22 Sacubitril/Valsartan [Entresto 24 mg-26 mg Tablet] 1 tab PO DAILY 07/10/22 Apixaban [Eliquis] 5 mg PO BID 07/12/22 Furosemide [Lasix*] 40 mg PO DAILY #30 tab 07/20/22 New Medications: Furosemide [Lasix*] 40 mg PO DAILY #30 tab Diet: AHA Activity: Ad royal Followup: Ross Graf MD [ACTIVE - CAN ADMIT] - 1-2 Weeks [email or web address] [Primary Care Provider] - 1 Week Time spent managing pt's care (in minutes): 25
[2022-07-20 15:12] VITALS: BP 124/69; TEMP 98.5
--- NOTE | 2022-07-20 19:40 | RAD REPORT ---
EXAM DESCRIPTION: RAD - Chest Single View - 07/19/2022 10:54 pm CLINICAL HISTORY: Cough;Fever COMPARISON: 06/25/2019 FINDINGS: Single frontal radiograph view of the chest. Cardiomediastinal silhouette: Cardiomegaly. Left chest wall multilead generator. Atherosclerotic calc ification of the thoracic aorta. Lungs: Diffuse bilateral interstitial opacities. No pneumothorax or large effusion. Bones: Degenerative change of the spine and shoulders. Upper abdomen: No abnormality identified. IMPRESSION: 1. Cardiomegaly with diffuse bilateral interstitial opacities likely related to pulmonar y edema. Electronically signed by: Logan Pichardo 07/20/2022 12:14 AM CDT Due to temporary technical issues with the PACS/Fluency reporting system, reports are being signed by the in house radiologists without review as a courtesy to insure prompt reporting. The interpreting radiologist is fully responsible for the content of the report.
--- NOTE | 2022-07-20 19:43 | RAD REPORT ---
EXAM DESCRIPTION: US - Extrem Venous W Compress [place] - 07/20/2022 12:31 am CLINICAL HISTORY: Swelling. COMPARISON: None. TECHNIQUE: Grayscale, color Doppler, duplex Doppler, spectral Doppler images and analysis with compr ession and augmentation of right and left lower extremity veins. FINDINGS: Right and Left common femoral, greater saphenous, femoral, deep (profunda) femoral, poplit eal, posterior tibial veins unremarkable without evidence of clot. IMPRESSION: No sonographic evidence of right or left lower extremity DVT. Electronically signed by: Haider Davis MD 07/20/2022 12:55 AM CDT Due to temporary technical issues with the PACS/Fluency reporting system, reports are being signed by the in house radiologists without review as a courtesy to insure prompt reporting. The interpreting radiologist is fully responsible for the content of the report.
== END 2022-07-20 15:52 | disposition home or self-care (01) ==
LOC: ER 22:13 → ERHOLD 07-20 01:47 → 2ND 07-20 02:40
PROVIDERS: ADMIT Internal Medicine; ATTEND Internal Medicine
DX: I50.23 Acute on chronic systolic (congestive) heart failure (principal); I48.0 Paroxysmal atrial fibrillation; N18.4 Chronic kidney disease, stage 4 (severe); I25.10 Atherosclerotic heart disease of native coronary artery without angina pectoris; E11.65 Type 2 diabetes mellitus with hyperglycemia; I10 Essential (primary) hypertension; D64.9 Anemia, unspecified; N28.9 Disorder of kidney and ureter, unspecified; R56.9 Unspecified convulsions; R79.89 Other specified abnormal findings of blood chemistry; Z79.4 Long term (current) use of insulin; Z88.1 Allergy status to other antibiotic agents; Z20.822 Contact with and (suspected) exposure to COVID-19
CPT/HCPCS: 93005; 87088; 85025; 81001; 87086; 80048; 36415; 83735; 85610; 82947 ×2; 80076; 83605; 87077; 87186; 84484; 83880; 87804 ×2; 71045; 93970; 94760; 96374; 99285; 87811; J1815 ×2; J1940 ×2; J2405; G0378 ×2

== ENCOUNTER 2022-07-26 10:55 | Observation (INO) | payer OTHER ==
--- OUTSIDE RECORDS SUMMARY | 2022-07-26 11:05 | XMS REPORT | Continuity of Care Document ---
:1945 Author Organization [facility] t Address [address] [place] [address] [address] [place] [address] Care Team Providers Name Role Phone CAMRON ARIAS Primary Care Physician Unavailable Elaine Lamb Attending Clinician Unavailable FAM CRAIG Attending Clinician Unavailable SILVERIO ADAM Attending Clinician Unavailable SRIRAM HEATH Attending Clinician Unavailable Kumar SQUIRES, Sriram Attending Clinician Doctor Unassigned, [place] Attending Clinician Unavailable 2, [facility] Attending [...] IBIKUNLE, FOLUSHO F Attending Clinician Unavailable Ibikunle ORGAN INSTALLER, Folusho F Attending Clinician Major SQUIRES, Clare Combs Attending Clinician CLARE GONSALVES Attending Clinician Unavailable Tommy BURK, Luis Alberto Attending Clinician Unavailable Mitchell Garcia MD Attending Clinician Po, [facility] Main Attending Clinician Unavailable Willian SQUIRES, Ortega Lester Attending Clinician [phone] ORTEGA DORSEY Attending Clinician Unavailable Cielo Bautista [...] Clinician Unavailable Hudson Wolfe MD Attending Clinician Aunj Gonzales MD Attending Clinician Misael Castro MD Attending Clinician GRAMM, SHANTEL A Attending Clinician Unavailable Gramm ORGAN INSTALLER, Shantel A Attending Clinician Sabina Barba MD Attending Clinician SABINA BARBA Attending Clinician Unavailable Ericka Chen Attending Clinician ERICKA ACKERMAN Attending Clinician Unavailable Lab, Ang - Db Attending Clinician Unavailable VIRI PRICE Attending Clinician Unavailable Lab, [facility] Fam Pob I Attending Clinician Unavailable Jose ORGAN INSTALLER, Karla Attending Clinician Dee ORGAN INSTALLER, Viri Martinez Attending Clinician Teri Samano RN Attending Clinician Unavailable ERICH PANTOJA Attending Clinician Unavailable Pacemaker/Icd, [facility] Attending Clinician Unavailable Omole ORGAN INSTALLER, Min Godinez Attending Clinician [phone] OMOLE, MIN GRETCHEN Attending Clinician Unavailable Nita Degroot DO Attending Clinician NITA DEGROOT Attending Clinician Unavailable NITA DEGROOT Attending Clinician Unavailable Provider, [facility] Attending Clinician Unavailable Anedevante ORGAN INSTALLER, Monica Attending Clinician MONICA MCCORMICK Attending Clinician Unavailable Calli BURK, Jo More Attending Clinician Unavailable Kirt Thomason DO Attending Clinician Gab Servin MD Attending Clinician GAB SERVIN Attending Clinician Unavailable Cielo Henry RN Attending Clinician Fam Craig MD Attending Clinician [phone] Edgar Cortés MD Attending Clinician [phone] EDGAR CORTÉS Attending Clinician Unavailable Lubna Lal MD Attending Clinician LUBNA LAL Attending Clinician Unavailable , [facility] Echo Room 1 - Attending Clinician Unavailable Visit, [facility] Nurse Attending Clinician Unavailable Dago Gross MDHKaren Attending Clinician Pc, [facility] Vascular Room 1 - Attending Clinician Unavailable ALEXUS RAMOS Attending Clinician Unavailable ALEXUS RAMOS Attending Clinician Unavailable DAGO GROSSHKaren Attending Clinician Unavailable EVAN MARTIN Attending Clinician Unavailable EKATERINA BOUDREAUX Attending Clinician Unavailable Nate ORGAN INSTALLER, Madeleine Strauss Attending Clinician Emily Lezama Attending Clinician [facility], [facility] Heart Failure Cardio Attending Clinician [...] Effective Date Expiration Date Lucy toribio BLAKE/SANDRA [id number] 2019 MEDICARE ADVANTAGE 00:00:00 HU[employer] CHOICE [id number] 2022 00:00:00 Problems Condition Condition Condition Status Onset Resolution Last Treating Co mments Source Name Details Category Date Date Treatment Clinician Date Pulmonary Pulmonary Disease Active 2021-02 Uni vers hypertensi hypertensi 2-31 it y of on on 00:00: [address] Branch Presence Presence Disease Active 2021-02 Unive rs of cardiac of cardiac 2-30 it y of resynchron [place]ynchron [place] ization ization 00 Medical therapy therapy Branch defibrilla defibrilla 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) SOB SOB Disease Active 2021-02 Univers (shortness (shortness 2-29 it y of of breath) of breath) 00:[place]: [place] 00 Medical Branch Atrial Atrial Disease Active Univers tachycardi tachycardi 2-25 it y of a a 00:00: [address] Branch Dizziness Dizziness Disease Active Uni [...] Added automatic ally from request for surgery [id number] Refusal of Refusal of Disease Active 2020-02 U nivers blood blood 2-13 ity of transfusio transfusio 00:00[place] as ns as 00 Medical patient is patient is Br anch Je[employer]'s [employer] Witness Osteopenia Osteopenia Disease Active 2020-02 U [...] rs LFTs LFTs 5- ity of 00:00: [place] [facility] Multiple Multiple Disease Active Overview: [...] colon 5-03 ity of polyps polyps 00:00: [address] Branch History of History of Disease Active U nivers pulmonary pulmonary 2-17 ity of embolism embolism 00:00: [place] [facility] Branch ICD ICD Disease Active Univers (implantab (implantab 2-17 it y of le le 00:00: [place] cardiovert cardiovert 00 Me dical er-defibri er-defibri Br anch llator) in llator) in place place Atrial Atrial Disease Active Univers fibrillati fibrillati 1-16 it y of on on 00:00: [address] Branch Syncope Syncope Disease Active Univers 1-15 ity of 00:00: [place] [facility] Branch DM DM Disease Active Univers (diabetes (diabetes 8-31 ity of mellitus), mellitus), [place] type 2 type 2 00 Medical with renal with renal Br anch complicati complicati ons ons Anxiety Anxiety Disease Active Univers ity of [facility] CKD CKD Disease Active Univers (chronic (chronic ity of kidney kidney [place] disease) disease) Medica l stage 4, stage 4, Branch GFR 15-29 GFR 15-29 ml/min ml/min Epilepsy Epilepsy Disease Active Unive rs ity of [facility] Esophageal Esophageal Disease Active U nivers reflux reflux ity of [facility] HLD HLD Disease Active Univers (hyperlipi (hyperlipi it y of demia) demia) [facility] HTN HTN Disease Active Univers (hypertens (hypertens it y of ion) ion) [place] [facility] Non-ischem Non-ischem Disease Active U [...] tobacco Passive smoker Un iversity of use [place] [facility] History SDOH University o f Alcohol Std Drinks [place] [facility] History SDOH University o f Alcohol Binge [place] [facility] al Branch History SDOH Social Unive rsity of Connections [facility] Med ical Together Branch History SDOH Social Unive rsity of Connections [facility] Medical Branch History SDOH Social Unive rsity of Connections [place] Medical Membership Branch History SDOH Social Unive rsity of [facility] Medical Meetings Branch Exposure to 2022-03-12 2022-03-22 Not sure University of SARS-CoV-2 (event) 00:00:00 07:50:00 [facility] Branch Alcohol intake 2022-03-14 2022-03-14 Current University of 00:00:00 00:00:00 non-drinker of [facility] alcohol Branch (finding) History SDOH 2022-02-17 2022-02-17 1 University o f Alcohol Frequency 00:00:00 00:00:00 [facility] edical Branch History SDOH Social 2022-02-17 2022-02-17 5 Unive rsity of Connections Phone 00:00:00 00:00:00 [facility] edical Branch History SDSD Social 2022-02-17 2022-02-17 98 Unive rsity of Connections Living 00:00:00 00:00:00 [place] [facility] History SDOH 2022-02-17 2022-02-17 7 University o f Physical Activity 00:00:00 00:00:00 [facility] edical DPW Branch History SDSD 2022-02-17 2022-02-17 1 University o f Physical Activity 00:00:00 00:00:00 [place] M edical MPS Branch History SDSD 2022-02-17 2022-02-17 5 University o f Financial 00:00:00 00:00:00 [place] [facility] History SDOH Food 2022-02-17 2022-02-17 1 Univers ity of Worry 00:00:00 00:00:00 [place] [facility] History SDOH Food 2022-02-17 2022-02-17 1 Univers ity of Scarcity 00:00:00 00:00:00 [place] [facility] History SDSD 2022-02-17 2022-02-17 2 University o f Transport Med 00:00:00 00:00:00 [place] Medic al Branch History [facility] 2022-02-17 2022-02-17 2 University o f Transport Non-Med 00:00:00 00:00:00 [facility] edical Branch Tobacco use and 2022-02-16 2022-02-16 Smokeless Universit y of exposure 00:00:00 00:00:00 tobacco non-user [facility] dical Branch Tobacco Comment 2022-02-16 2022-02-16 exposed to "a Univer sity of 00:00:00 00:00:00 lot" of passive [place] Med ical smoke from Branch Sex [birth year] Universit y of 00:00:00 00:00:00 [facility] Smoking Status Start Date Stop Date Source Never smoked tobacco [facility] Medications Ordered Filled Start Stop Current Ordering Indication Dosage Frequency Signature Comments Components Source Medication Medication Date Date Medication? Clinician (SIG) Name Name metoprolol Yes [id number] 50mg Take 1 Univers succinate 2-07 tablet by ity o f XL 50 mg 24 00:00: mouth 2 [place] hr tablet 00 (two) Medical times Branch daily. amiodarone Yes [id number] 200mg Take 1 Univers 200 mg 1-26 tablet by ity of tablet 00:00: mouth [place] 00 daily. Medical Branch amiodarone Yes [id number] 200mg Take 1 Univers 200 mg 1-26 tablet by ity of tablet 00:00: mouth [place] 00 daily. Medical Branch amiodarone Yes [id number] 200mg Take 1 Univers 200 mg 1-26 tablet by ity of tablet 00:00: mouth [place] 00 daily. Medical Branch amiodarone Yes [id number] 200mg Take 1 Univers 200 mg 1-26 tablet by ity of tablet 00:00: mouth [place] 00 daily. Medical Branch amiodarone Yes [id number] 200mg Take 1 Univers 200 mg 1-26 [...] at 6am and 6pm furosemide 2022- Yes [id number] 40mg Take 1 Univers 40 mg 1-10 tablet by ity of tablet 00:00: mouth [place] 00 every Medical morning Branch and evening. metoprolol Yes [id number] 50mg Take 1 Univers succinate 1-10 tablet by ity o f XL 50 mg 24 00:00: mouth 2 [place] hr tablet 00 (two) Medical times Branch daily. apixaban Yes 1358 2.5mg Take 1 Univer s (ELIQUIS) 1-10 tablet by ity o f 2.5 mg 00:00: mouth 2 [place] tablet 00 (two) Medical times Branch daily. Indication s: atrial fibrillati on furosemide Yes [id number] 40mg Take 1 Univers 40 mg 1-10 tablet by ity of tablet 00:00: mouth [place] 00 every Medical morning Branch and evening. metoprolol 2022-0 Yes [id number] 50mg Take 1 Univers succinate 1-10 tablet [...] s: atrial fibrillati on furosemide 0 Yes [id number] 40mg Take 1 Univers 40 mg 1-10 tablet by ity of tablet 00:00: mouth [place] 00 every Medical morning Branch and evening. metoprolol 2022-0 Yes [id number] 50mg Take 1 Univers succinate 1-10 tablet [...] s: atrial fibrillati on furosemide 0 Yes [id number] 40mg Take 1 Univers 40 mg 1-10 tablet by ity of tablet 00:00: mouth [place] 00 every Medical morning Branch and evening. metoprolol 2022-0 Yes [id number] 50mg Take 1 Univers succinate 1-10 tablet [...] s: atrial fibrillati on furosemide 2022-0 Yes [id number] 40mg Take 1 Univers 40 mg 1-10 tablet by ity of tablet 00:00: mouth [place] 00 every Medical morning Branch and evening. metoprolol 2022-0 Yes [id number] 50mg Take 1 Univers succinate 1-10 tablet [...] s: atrial fibrillati on furosemide 2022-0 Yes [id number] 40mg Take 1 Univers 40 mg 1-10 tablet by ity of tablet 00:00: mouth [place] 00 every Medical morning Branch and evening. metoprolol 2022-0 Yes [id number] 50mg Take 1 Univers succinate 1-10 tablet [...] s: atrial fibrillati on furosemide 2022-0 Yes [id number] 40mg Take 1 Univers 40 mg 1-10 tablet by ity of tablet 00:00: mouth [place] 00 every Medical morning Branch and evening. metoprolol 2022-0 Yes [id number] 50mg Take 1 Univers succinate 1-10 tablet [...] s: atrial fibrillati on furosemide 2022-0 Yes [id number] 40mg Take 1 Univers 40 mg 1-10 tablet by ity of tablet 00:00: mouth [place] 00 every Medical morning Branch and evening. apixaban 2022-0 Yes 1358 2.5mg Take 1 Univer s (ELIQUIS) 1-10 tablet by ity o f 2.5 mg 00:00: mouth 2 [place] tablet 00 (two) Medical times Branch daily. Indication s: atrial fibrillati on furosemide 2023-0 Yes [id number] 40mg Take 1 Univers 40 mg 1-10 tablet by ity of tablet 00:00: mouth [place] 00 every Medical morning Branch and evening. apixaban Yes 1358 2.5mg Take 1 Univer s (ELIQUIS) 1-10 tablet by ity o f 2.5 mg 00:00: mouth 2 [place] tablet 00 (two) Medical times Branch daily. Indication s: atrial fibrillati on metoprolol 202- No [id number] 50mg Take 1 Univers succinate 1-10 02-06 tablet by ity of XL 50 mg 24 00:00: 00:00 mouth 2 [place] hr tablet 00 :00 (two) Medical times Branch daily. insulin NPH Yes [id number] 20U inject 20 Univers 100 unit/mL 1-02 Units ity of injection 00:00: under the [place] 00 skin every Medical morning. Branch insulin NPH Yes [id number] 20U inject 20 Univers 100 unit/mL 1-02 Units ity of injection 00:00: under the [place] 00 skin every Medical morning. Branch insulin NPH Yes [id number] 20U inject 20 Univers 100 unit/mL 1-02 Units ity of injection 00:00: under the [place] 00 skin every Medical morning. Branch insulin NPH Yes [id number] 20U inject 20 Univers 100 unit/mL 1-02 Units ity of injection 00:00: under the [place] 00 skin every Medical morning. Branch insulin NPH Yes [id number] 20U inject 20 Univers 100 unit/mL 1-02 Units ity of injection 00:00: under the [place] 00 skin every Medical morning. Branch insulin NPH Yes [id number] 20U inject 20 Univers 100 unit/mL 1-02 Units ity of injection 00:00: under the [place] 00 skin every Medical morning. Branch insulin NPH Yes [id number] 20U inject 20 Univers 100 unit/mL 1-02 Units ity of injection 00:00: under the [place] 00 skin every Medical morning. Branch insulin NPH Yes [id number] 20U inject 20 Univers 100 unit/mL 1-02 Units ity of injection 00:00: under the [place] 00 skin every Medical morning. Branch insulin NPH 2022-0 Yes [id number] 20U inject 20 Univers 100 unit/mL 1-02 Units ity of injection 00:00: under the [place] 00 skin every Medical morning. Branch insulin NPH 2022-0 Yes [id number] 20U inject 20 Univers 100 unit/mL 1-02 Units ity of injection 00:00: under the [place] 00 skin every Medical morning. Branch insulin NPH 2022-0 Yes [id number] 20U inject 20 Univers 100 unit/mL 1-02 [...] 03:00: First dose [place] 00 on Sat [facility] 02/18/22 Branch at 2100, Until Discontinu ed, Routine insulin NPH 2022-0 Yes [id number] 15U inject 15 Univers 100 unit/mL 1-01 Units ity of injection 00:00: under the [place] 00 skin at Medical bedtime. Branch polyethylen 2022-0 Yes [id number] 17g Take 1 Univers e glycol 1- Packet by ity of 3350 17 00:00: mouth [place] gram powder 00 every 24 Medi sandra (twenty-fo Branch ur) hours as needed for Constipati on. insulin NPH 2022-0 Yes [id number] 15U inject 15 Univers 100 unit/mL 1-01 Units ity of injection 00:00: under the [place] 00 skin at Medical bedtime. Branch polyethylen 0 Yes [id number] 17g Take 1 Univers e glycol 1-01 Packet by ity of 3350 17 00:00: mouth [place] gram powder 00 every 24 Medi sandra (twenty-fo Branch ur) hours as needed for Constipati on. insulin NPH Yes [id number] 15U inject 15 Univers 100 unit/mL 1-01 Units ity of injection 00:00: under the [place] 00 skin at Medical bedtime. Branch polyethylen 0 Yes [id number] 17g Take 1 Univers e glycol 1-01 Packet by ity of 3350 17 00:00: mouth [place] gram powder 00 every 24 Medi sandra (twenty-fo Branch ur) hours as needed for Constipati on. insulin NPH Yes [id number] 15U inject 15 Univers 100 unit/mL 1-01 Units ity of injection 00:00: under the [place] 00 skin at Medical bedtime. Branch polyethylen 0 Yes [id number] 17g Take 1 Univers e glycol 1-01 Packet by ity of 3350 17 00:00: mouth [place] gram powder 00 every 24 Medi sandra (twenty-fo Branch ur) hours as needed for Constipati on. insulin NPH Yes [id number] 15U inject 15 Univers 100 unit/mL 1-01 Units ity of injection 00:00: under the [place] 00 skin at Medical bedtime. Branch polyethylen 0 Yes [id number] 17g Take 1 Univers e glycol 1-01 Packet by ity of 3350 17 00:00: mouth [place] gram powder 00 every 24 Medi sandra (twenty-fo Branch ur) hours as needed for Constipati on. insulin NPH Yes [id number] 15U inject 15 Univers 100 unit/mL 1-01 Units ity of injection 00:00: under the [place] 00 skin at Medical bedtime. Branch polyethylen 0 Yes [id number] 17g Take 1 Univers e glycol 1-01 Packet by ity of 3350 17 00:00: mouth [place] gram powder 00 every 24 Medi sandra (twenty-fo Branch ur) hours as needed for Constipati on. insulin NPH Yes [id number] 15U inject 15 Univers 100 unit/mL 1-01 Units ity of injection 00:00: under the [place] 00 skin at Medical bedtime. Branch polyethylen 2022-0 Yes [id number] 17g Take 1 Univers e glycol 1-01 Packet by ity of 3350 17 00:00: mouth [place] gram powder 00 every 24 Medi sandra (twenty-fo Branch ur) hours as needed for Constipati on. insulin NPH 2022-0 Yes [id number] 15U inject 15 Univers 100 unit/mL 1-01 Units ity of injection 00:00: under the [place] 00 skin at Medical bedtime. Branch polyethylen 2022-0 Yes [id number] 17g Take 1 Univers e glycol 1-01 Packet by ity of 3350 17 00:00: mouth [place] gram powder 00 every 24 Medi sandra (twenty-fo Branch ur) hours as needed for Constipati on. insulin NPH 2022-0 Yes [id number] 15U inject 15 Univers 100 unit/mL 1-01 Units ity of injection 00:00: under the [place] 00 skin at Medical bedtime. Branch polyethylen 2022-0 Yes [id number] 17g Take 1 Univers e glycol 1-01 Packet by ity of 3350 17 00:00: mouth [place] gram powder 00 every 24 Medi sandra (twenty-fo Branch ur) hours as needed for Constipati on. insulin NPH 2022-0 Yes [id number] 15U inject 15 Univers 100 unit/mL 1-01 Units ity of injection 00:00: under the [place] 00 skin at Medical bedtime. Branch polyethylen 2022-0 Yes [id number] 17g Take 1 Univers e glycol 1-01 Packet by ity of 3350 17 00:00: mouth [place] gram powder 00 every 24 Medi sandra (twenty-fo Branch ur) hours as needed for Constipati on. insulin NPH 2022-0 Yes [id number] 15U inject 15 Univers 100 unit/mL 1-01 Units ity of injection 00:00: under the [place] 00 skin at Medical bedtime. Branch polyethylen 2022-0 Yes [id number] 17g Take 1 Univers e glycol 1-01 Packet by ity of 3350 17 00:00: mouth [place] gram powder 00 every 24 Medi sandra (twenty-fo Branch ur) hours as needed for Constipati on. furosemide 2022- No [id number] 40mg Take 1 Univers 40 mg 02-19 tablet by ity of tablet 00:00: 05:59 mouth [place] 00 :00 every Medical morning Branch and evening for 30 days. furosemide 2022- No [id number] 40mg Take 1 Univers 40 mg 02-19 tablet by ity of tablet 00:00: 05:59 mouth [place] 00 :00 every Medical morning Branch and evening for 30 days. furosemide 2022- No [id number] 40mg Take 1 Univers 40 mg 02-19 tablet by ity of tablet 00:00: 00:00 mouth [place] 00 :00 every Medical morning Branch and evening for 30 days. furosemide 2022- No [id number] 40mg Take 1 Univers 40 mg 02-19 [...] Until Discontinu ed, Routine sulfur 2021-02- No [id number] 5mL 5 mL, Un araseli hexafluorid 02-17 9103 Intravenou i ty of e microsphr 15:00: 15:00 s, ONCE, 1 [place] (LUMASON) 00 :00 dose, On Medica l injection 5 Sun Branch mL 02/17/22 at 0900, Routine
crew team member approving Restricted medication : KUMARSRIRAM polyethylen 2021-02 Yes 17g 17 g, Unive rs e glycol 2-30 Oral, ity of 3350 powder 05:09: [id number], [place] 17 g 36 Starting Medical on [place] Branch 02/16/22 at 2309, Until Discontinu ed, Routine, Constipati on phenytoin 2021-02 Yes 200mg 200 mg, Univ ers Extended 2-30 Oral, QHS, ity o f (DILANTIN 03:00: First dose [place] KAPSEAL) 00 on [facility] Medical capsule 200 02/16/22 Bran ch mg at 2100, Until Discontinu ed, Routine insulin NPH 2021-02 Yes 15U 15 Units, U nivers (HUMULIN N) 2-30 Subcutaneo it y of injection 03:00: [place], QHS, [place] 15 Units 00 First dose Medic al on [facility] Branch 02/16/22 at 2100, Until Discontinu [...] :42 Q12H, Medical First dose Branch on [facility] 02/16/22 at 2000, Until Discontinu ed, Routine metoprolol 2021-02- No 50mg 50 mg, Univ ers succinate 202-18 Oral, BID, ity of XL (TOPROL 02:00: 14:37 First dose [place] XL) tablet 00 :05 on [facility] Medical 50 mg 02/16/22 Branch at [...] Branch 02/16/22 at 1100, JACQUI semaglutide Yes [id number] .25mg inject Univers (OZEMPIC) 8-17 0.25 mg ity of 0.25 mg or 00:00: under the [place] 0.5 mg(2 00 skin Medical mg/1.5 mL) weekly. Branch PnIj semaglutide Yes [id number] .25mg inject Univers (OZEMPIC) 8-17 0.25 mg ity of 0.25 mg or 00:00: under the [place] 0.5 mg(2 00 skin Medical mg/1.5 mL) weekly. Branch PnIj semaglutide Yes [id number] .25mg inject Univers (OZEMPIC) 8-17 0.25 mg ity of 0.25 mg or 00:00: under the [place] 0.5 mg(2 00 skin Medical mg/1.5 mL) weekly. Branch PnIj semaglutide Yes [id number] .25mg inject Univers (OZEMPIC) 8-17 0.25 mg ity of 0.25 mg or 00:00: under the [place] 0.5 mg(2 00 skin Medical mg/1.5 mL) weekly. Branch PnIj semaglutide 0 Yes [id number] .25mg inject Univers (OZEMPIC) 8-17 0.25 mg ity of 0.25 mg or 00:00: under the [place] 0.5 mg(2 00 skin Medical mg/1.5 mL) weekly. Branch PnIj semaglutide 0 Yes [id number] .25mg inject Univers (OZEMPIC) 8-17 0.25 mg ity of 0.25 mg or 00:00: under the [place] 0.5 mg(2 00 skin Medical mg/1.5 mL) weekly. Branch PnIj semaglutide 0 Yes [id number] .25mg inject Univers (OZEMPIC) 8-17 0.25 mg ity of 0.25 mg or 00:00: under the [place] 0.5 mg(2 00 skin Medical mg/1.5 mL) weekly. Branch PnIj semaglutide Yes [id number] .25mg inject Univers (OZEMPIC) 8-17 0.25 mg ity of 0.25 mg or 00:00: under the [place] 0.5 mg(2 00 skin Medical mg/1.5 mL) weekly. Branch PnIj semaglutide Yes [id number] .25mg inject Univers (OZEMPIC) 8-17 0.25 mg ity of 0.25 mg or 00:00: under the [place] 0.5 mg(2 00 skin Medical mg/1.5 mL) weekly. Branch PnIj semaglutide Yes [id number] .25mg inject Univers (OZEMPIC) 8-17 0.25 mg ity of 0.25 mg or 00:00: under the [place] 0.5 mg(2 00 skin Medical mg/1.5 mL) weekly. Branch PnIj semaglutide 2021-0 Yes [id number] .25mg inject Univers (OZEMPIC) 8-17 0.25 mg ity of 0.25 mg or 00:00: under the [place] 0.5 mg(2 00 skin Medical mg/1.5 mL) weekly. Branch PnIj semaglutide Yes [id number] .25mg inject Univers (OZEMPIC) 8-17 0.25 mg ity of 0.25 mg or 00:00: under the [place] 0.5 mg(2 00 skin Medical mg/1.5 mL) weekly. Branch PnIj semaglutide 2021-0 Yes [id number] .25mg inject Univers (OZEMPIC) 8-17 0.25 mg ity of 0.25 mg or 00:00: under the [place] 0.5 mg(2 00 skin Medical mg/1.5 mL) weekly. Branch PnIj semaglutide 2021-0 Yes [id number] .25mg inject Univers (OZEMPIC) 8-17 0.25 mg [...] capsules in the evening. amLODIPine 2-0 Yes [id number] 10mg Take 1 U nivers 10 mg 6-13 tablet by ity of tablet 00:00: mouth [place] 00 daily. Medical Branch amLODIPine 2-0 Yes [id number] 10mg Take 1 U nivers 10 mg 6-13 tablet by ity of tablet 00:00: mouth [place] 00 daily. Medical Branch amLODIPine 2-0 Yes [id number] 10mg Take 1 U nivers 10 mg 6-13 tablet by ity of tablet 00:00: mouth [place] 00 daily. Medical Branch amLODIPine 2-0 Yes [id number] 10mg Take 1 U nivers 10 mg 6-13 tablet by ity of tablet 00:00: mouth [place] 00 daily. Medical Branch amLODIPine 2-0 Yes [id number] 10mg Take 1 U nivers 10 mg 6-13 tablet by ity of tablet 00:00: mouth [place] 00 daily. Medical Branch amLODIPine 2021-0 2022- No [id number] 10mg Take 1 Univers 10 mg 6-13 01-10 tablet by ity of tablet 00:00: 00:00 mouth [place] 00 :00 daily. Medical Branch amLODIPine 2021-0 2022- No [id number] 10mg Take 1 Univers 10 mg 6-13 [...] s: atrial fibrillati on OXCARBAZEPI 2-0 Yes [id number] TAKE 1 Univers [place] 150 mg 3-08 TABLET 2 X ity of tablet 00:00: A DAY FOR [place] 00 1 WEEK Medical THEN 2 Branch TABS 2X DAY FOR 1 WEEK 3 TABLES 2XADAY OXCARBAZEPI 2022-0 Yes [id number] TAKE 1 Univers [place] 150 mg 3-08 TABLET 2 X ity of tablet 00:00: A DAY FOR [place] 00 1 WEEK Medical THEN 2 Branch TABS 2X DAY FOR 1 WEEK 3 TABLES 2XADAY OXCARBAZEPI 2022-0 Yes [id number] TAKE 1 Univers [place] 150 mg 3-08 TABLET 2 X ity of tablet 00:00: A DAY FOR [place] 00 1 WEEK Medical THEN 2 Branch TABS 2X DAY FOR 1 WEEK 3 TABLES 2XADAY OXCARBAZEPI 2022-0 Yes [id number] TAKE 1 Univers [place] 150 mg 3-08 TABLET 2 X ity of tablet 00:00: A DAY FOR [place] 1 WEEK Medical THEN 2 Branch TABS 2X DAY FOR 1 WEEK 3 TABLES 2XADAY OXCARBAZEPI 2022-0 Yes [id number] TAKE 1 [facility] [place] 150 mg 3-08 TABLET 2 X ity of tablet 00:00: A DAY FOR [place] 1 WEEK Medical THEN 2 Branch TABS 2X DAY FOR 1 WEEK 3 TABLES 2XADAY OXCARBAZEPI 2022-0 Yes [id number] TAKE 1 [facility] [place] 150 mg 3-08 TABLET 2 X ity of tablet 00:00: A DAY FOR [place] 1 WEEK Medical THEN 2 Branch TABS 2X DAY FOR 1 WEEK 3 TABLES 2XADAY OXCARBAZEPI 2022-0 Yes [id number] TAKE 1 [facility] [place] 150 mg 3-08 TABLET 2 X ity of tablet 00:00: A DAY FOR [place] 00 1 WEEK Medical THEN 2 Branch TABS 2X DAY FOR 1 WEEK 3 TABLES 2XADAY OXCARBAZEPI 2022-0 Yes [id number] TAKE 1 [facility] [place] 150 mg 3-08 TABLET 2 X ity of tablet 00:00: A DAY FOR [place] 00 1 WEEK Medical THEN 2 Branch TABS 2X DAY FOR 1 WEEK 3 TABLES 2XADAY OXCARBAZEPI 2022-0 Yes [id number] TAKE 1 [facility] [place] 150 mg 3-08 TABLET 2 X ity of tablet 00:00: A DAY FOR [place] 00 1 WEEK Medical THEN 2 Branch TABS 2X DAY FOR 1 WEEK 3 TABLES 2XADAY OXCARBAZEPI 2022-0 Yes [id number] TAKE 1 [facility] [place] 150 mg 3-08 TABLET 2 X ity of tablet 00:00: A DAY FOR [place] 00 1 WEEK Medical THEN 2 Branch TABS 2X DAY FOR 1 WEEK 3 TABLES 2XADAY OXCARBAZEPI 2022-0 Yes [id number] TAKE 1 [facility] [place] 150 mg 3-08 TABLET 2 X ity of tablet 00:00: A DAY FOR [place] 1 WEEK Medical THEN 2 Branch TABS 2X DAY FOR 1 WEEK 3 TABLES 2XADAY OXCARBAZEPI 2022-0 Yes [id number] TAKE 1 [facility] [place] 150 mg 3-08 TABLET 2 X ity of tablet 00:00: A DAY FOR [place] 1 WEEK Medical THEN 2 Branch TABS 2X DAY FOR 1 WEEK 3 TABLES 2XADAY OXCARBAZEPI 2022-0 Yes [id number] TAKE 1 [facility] [place] 150 mg 3-08 TABLET 2 X ity of tablet 00:00: A DAY FOR [place] 1 WEEK Medical THEN 2 Branch TABS 2X DAY FOR 1 WEEK 3 TABLES 2XADAY OXCARBAZEPI 2022-0 Yes [id number] TAKE 1 [facility] [place] 150 mg 3-08 TABLET 2 X ity of tablet 00:00: A DAY FOR [place] 1 WEEK Medical THEN 2 Branch TABS [...] 6am and 6pm insulin NPH 0 Yes [id number] 10U inject Univers (NOVOLIN N 04-13 10-15 ity of NPH U-100 00:00: Units [place] INSULIN) 00 under the Medica l 100 unit/mL skin every Br anch injection evening. insulin NPH Yes [id number] 10U inject Univers (NOVOLIN N 04-13 10-15 ity of NPH U-100 00:00: Units [place] INSULIN) 00 under the Medica l 100 unit/mL skin every Br anch injection evening. insulin NPH Yes [id number] 10U inject Univers (NOVOLIN N 04-13 10-15 ity of NPH U-100 00:00: Units [place] INSULIN) 00 under the Medica l 100 unit/mL skin every Br anch injection evening. insulin NPH 2022- No [id number] 10U inject Univers (NOVOLIN N 04-13 10-15 ity of NPH U-100 00:00: 00:00 Units [place] INSULIN) 00 :00 under the Medica l 100 unit/mL skin every Br anch injection evening. furosemide 0 Yes [id number] 20mg Take 1 Univers 20 mg 1-27 tablet by ity of tablet 00:00: mouth 00 daily. Medical Branch levETIRAcet 2021-0 Yes [id number] 500mg Take 1 Univers am 500 mg 1-27 tablet by ity o f tablet 00:00: mouth 2 00 (two) Medical times Branch daily. furosemide 2021-0 Yes [id number] 20mg Take 1 Univers 20 mg 1-27 tablet by ity of tablet 00:00: mouth [place] 00 daily. Medical Branch levETIRAcet 2021-0 Yes [id number] 500mg Take 1 Univers am 500 mg 1-27 tablet by ity o f tablet 00:00: mouth 2 [place] 00 (two) Medical times Branch daily. furosemide 2022-0 Yes [id number] 20mg Take 1 Univers 20 mg 1-27 tablet by ity of tablet 00:00: mouth 00 daily. Medical Branch levETIRAcet 2021-0 Yes [id number] 500mg Take 1 Univers am 500 mg 1-27 tablet by ity o f tablet 00:00: mouth (two) Medical times Branch daily. levETIRAcet 2021-0 Yes [id number] 500mg Take 1 Univers am 500 mg 1-27 tablet by ity o f tablet 00:00: mouth (two) Medical times Branch daily. levETIRAcet 2021-0 Yes [id number] 500mg Take 1 Univers am 500 mg 1-27 tablet by ity o f tablet 00:00: mouth (two) Medical times Branch daily. levETIRAcet 2021-0 Yes [id number] 500mg Take 1 Univers am 500 mg 1-27 tablet by ity o f tablet 00:00: mouth (two) Medical times Branch daily. levETIRAcet 2021-0 Yes [id number] 500mg Take 1 Univers am 500 mg 1-27 tablet by ity o f tablet 00:00: mouth (two) Medical times Branch daily. levETIRAcet 2021-0 Yes [id number] 500mg Take 1 Univers am 500 mg 1-27 tablet by ity o f tablet 00:00: mouth (two) Medical times Branch daily. levETIRAcet 2021-0 Yes [id number] 500mg Take 1 Univers am 500 mg 1-27 tablet by ity o f tablet 00:00: mouth (two) Medical times Branch daily. levETIRAcet 2021-0 Yes [id number] 500mg Take 1 Univers am 500 mg 1-27 tablet by ity o f tablet 00:00: mouth (two) Medical times Branch daily. levETIRAcet 2-0 Yes [id number] 500mg Take 1 Univers am 500 mg 1-27 tablet by ity o f tablet 00:00: mouth (two) Medical times Branch daily. levETIRAcet 2-0 Yes [id number] 500mg Take 1 [facility] am 500 mg 1-27 tablet by ity o f tablet 00:00: mouth 2 [place] 00 (two) Medical times Branch daily. levETIRAcet 2021-0 Yes [id number] 500mg Take 1 Univers am 500 mg 1-27 tablet by ity o f tablet 00:00: mouth (two) Medical times Branch daily. levETIRAcet 2021-0 Yes [id number] 500mg Take 1 Univers am 500 mg 1-27 tablet by ity o f tablet 00:00: mouth 2 (two) Medical times Branch daily. furosemide 2021-0 3- No [id number] 20mg Take 1 Univers 20 mg 1-27 02-19 tablet by ity of tablet 00:00: 00:00 mouth [place] 00 :00 daily. Medical Branch pantoprazol 0 Yes [id number] 40mg Take 1 Univers e 40 mg EC 1-21 tablet by ity of tablet 00:00: mouth 00 daily. Medical Branch pantoprazol 0 Yes [id number] 40mg Take 1 Univers e 40 mg EC 1-21 tablet by ity of tablet 00:00: mouth 00 daily. Medical Branch pantoprazol 0 Yes [id number] 40mg Take 1 Univers e 40 mg EC 1-21 tablet by ity of tablet 00:00: mouth 00 daily. Medical Branch pantoprazol 2021-0 Yes [id number] 40mg Take 1 Univers e 40 mg EC 1-21 tablet by ity of tablet 00:00: mouth [place] 00 daily. Medical Branch pantoprazol 2021-0 Yes [id number] 40mg Take 1 Univers e 40 mg EC 1-21 tablet by ity of tablet 00:00: mouth 00 daily. Medical Branch pantoprazol 2021-0 Yes [id number] 40mg Take 1 Univers e 40 mg EC 1-21 tablet by ity of tablet 00:00: mouth [place] 00 daily. Medical Branch pantoprazol 2021-0 Yes [id number] 40mg Take 1 Univers e 40 mg EC 1-21 tablet by ity of tablet 00:00: mouth [place] 00 daily. Medical Branch pantoprazol 2021-0 Yes [id number] 40mg Take 1 Univers e 40 mg EC 1-21 tablet by ity of tablet 00:00: mouth [place] 00 daily. Medical Branch pantoprazol 2021-0 Yes [id number] 40mg Take 1 Univers e 40 mg EC 1-21 tablet by ity of tablet 00:00: mouth [place] 00 daily. Medical Branch pantoprazol Yes [id number] 40mg Take 1 Univers e 40 mg EC 1-21 tablet by ity of tablet 00:00: mouth [place] 00 daily. Medical Branch pantoprazol Yes [id number] 40mg Take 1 Univers e 40 mg EC 1-21 tablet by ity of tablet 00:00: mouth [place] 00 daily. Medical Branch pantoprazol Yes [id number] 40mg Take 1 Univers e 40 mg EC 1-21 tablet by ity of tablet 00:00: mouth [place] 00 daily. Medical Branch pantoprazol Yes [id number] 40mg Take 1 Univers e 40 mg EC 1-21 tablet by ity of tablet 00:00: mouth [place] 00 daily. Medical Branch pantoprazol Yes [id number] 40mg Take 1 Univers e 40 mg EC 1-21 tablet by ity of tablet 00:00: mouth [place] 00 daily. Medical Branch atorvastati 2020-02 Yes [id number] 40mg Take 1 Univers n 40 mg 2-14 tablet by ity of tablet 00:00: mouth at [place] 00 bedtime. Medical Branch insulin 2020-02 Yes 8U inject 8 Univer s regular 2-14 Units ity of human 00:00: under the [place] (NOVOLIN R 00 skin Medical REGULAR daily. Branch U-100 Daily at [facility]) 100 noon unit/mL injection atorvastati 2020-02 Yes [id number] 40mg Take 1 Univers n 40 mg 2-14 tablet by ity of tablet 00:00: mouth at [place] 00 bedtime. Medical Branch insulin 2020-02 Yes 8U inject 8 Univer s regular 2-14 Units ity of human 00:00: under the [place] (NOVOLIN R 00 skin Medical REGULAR daily. Branch U-100 Daily at [facility]) 100 noon unit/mL injection atorvastati 2020-02 Yes [id number] 40mg Take 1 Univers n 40 mg 2-14 tablet by ity of tablet 00:00: mouth at [place] 00 bedtime. Medical Branch insulin 2020-02 Yes 8U inject 8 Univer s regular 2-14 Units ity of human 00:00: under the [place] (NOVOLIN R 00 skin Medical REGULAR daily. Branch U-100 Daily at [facility]) 100 noon unit/mL injection atorvastati 2020-02 Yes [id number] 40mg Take 1 Univers n 40 mg 2-14 tablet by ity of tablet 00:00: mouth at [place] [address] bedtime. Medical Branch atorvastati 2020-02 Yes [id number] 40mg Take 1 Univers n 40 mg 2-14 tablet by ity of tablet 00:00: mouth at [place] [address] bedtime. Medical Branch atorvastati 2020-02 Yes [id number] 40mg Take 1 Univers n 40 mg 2-14 tablet by ity of tablet 00:00: mouth at [place] [address] bedtime. Medical Branch atorvastati 2020-02 Yes [id number] 40mg Take 1 Univers n 40 mg 2-14 tablet by ity of tablet 00:00: mouth at [place] [address] bedtime. Medical Branch atorvastati 2020-02 Yes [id number] 40mg Take 1 Univers n 40 mg 2-14 tablet by ity of tablet 00:00: mouth at [place] [address] bedtime. Medical Branch atorvastati 2020-02 Yes [id number] 40mg Take 1 Univers n 40 mg 2-14 tablet by ity of tablet 00:00: mouth at [place] [address] bedtime. Medical Branch atorvastati 2020-02 Yes [id number] 40mg Take 1 Univers n 40 mg 2-14 tablet by ity of tablet 00:00: mouth at [place] [address] bedtime. Medical Branch atorvastati 2020-02 Yes [id number] 40mg Take 1 Univers n 40 mg 2-14 tablet by ity of tablet 00:00: mouth at [place] [address] bedtime. Medical Branch atorvastati 2020-02 Yes [id number] 40mg Take 1 Univers n 40 mg 2-14 tablet by ity of tablet 00:00: mouth at [place] [address] bedtime. Medical Branch atorvastati 2020-02 Yes [id number] 40mg Take 1 Univers n 40 mg 2-14 tablet by ity of tablet 00:00: mouth at [place] [address] bedtime. Medical Branch atorvastati 2020-02 Yes [id number] 40mg Take 1 Univers n 40 mg 2-14 tablet by ity of tablet 00:00: mouth at [place] [address] bedtime. Medical Branch insulin 2020-023- No 8U inject 8 Unive rs regular 2-14 02-19 Units ity of human 00:00: 00:00 under the [place] (NOVOLIN R 00 :00 skin Medical REGULAR daily. Branch U-100 Daily at [facility]) 100 noon unit/mL injection Blood-Gluco Yes [...] 2020-12-03 Completed University o f Polysaccharide, 00:00:00 [place] Med ical PPSV23 (PNEUMOVAX) Branch Influenza Virus [...] Completed Universit y of Conjugate, PCV13 00:00:00 [facility] dical (Prevnar 13) Branch Pneumococcal 13 2019-12-19 Completed Universit y of Conjugate, PCV13 00:00:00 [facility] dical (Prevnar 13) Branch Pneumococcal 13 2019-12-19 Completed Universit y of Conjugate, PCV13 00:00:00 [facility] dical (Prevnar 13) Branch Pneumococcal 13 2019-12-19 Completed Universit y of Conjugate, PCV13 00:00:00 [facility] dical (Prevnar 13) Branch Pneumococcal 13 2019-12-19 Completed Universit y of Conjugate, PCV13 00:00:00 [facility] dical (Prevnar 13) Branch Pneumococcal 13 2019-12-19 Completed Universit y of Conjugate, PCV13 00:00:00 [facility] dical (Prevnar 13) Branch Pneumococcal 13 2019-12-19 [...] Universit y of Conjugate, PCV13 00:00:00 [place] dical (Prevnar 13) Branch Pneumococcal 13 2019-12-19 Completed Universit y of Conjugate, PCV13 00:00:00 [facility] dical (Prevnar 13) Branch Pneumococcal 13 2019-12-19 Completed Universit y of Conjugate, PCV13 00:00:00 [facility] dical (Prevnar 13) Branch Influenza Virus 2019-11-22 [...] Dosage 2018-03-25 Completed Unive rsity of 00:00:00 [place] [facility] HEP B, Adult Dosage 2018-03-25 Completed Unive rsity of 00:00:00 [facility] Branch HEP B, Adult Dosage 2018-03-25 Completed Unive rsity of 00:00:00 [facility] Branch HEP B, Adult Dosage 2018-03-25 Completed Unive rsity of 00:00:00 [place] [facility] HEP B, Adult Dosage 2018-03-25 Completed Unive rsity of 00:00:00 [place] [facility] HEP B, Adult Dosage 2018-03-25 Completed Unive rsity of 00:00:00 [place] [facility] HEP B, Adult Dosage 2018-03-25 Completed Unive rsity of 00:00:00 [place] [facility] HEP B, Adult Dosage 2018-03-25 Completed Unive rsity of 00:00:00 [facility] Branch HEP B, Adult Dosage 2018-03-25 Completed Unive rsity of 00:00:00 [place] [facility] HEP B, Adult Dosage 2018-03-25 [...] Dosage 2017-09-05 Completed Unive rsity of 00:00:00 [place] [facility] HEP B, Adult Dosage 2017-09-05 Completed Unive rsity of 00:00:00 [place] [facility] HEP B, Adult Dosage 2017-09-05 Completed Unive rsity of 00:00:00 [place] [facility] HEP B, Adult Dosage 2017-09-05 Completed Unive rsity of 00:00:00 [place] [facility] HEP B, Adult Dosage 2017-09-05 Completed Unive rsity of 00:00:00 [place] [facility] HEP B, Adult Dosage 2017-09-05 Completed Unive rsity of 00:00:00 [place] [facility] HEP B, Adult Dosage 2017-09-05 Completed Unive rsity of 00:00:00 [place] [facility] HEP B, Adult Dosage 2017-09-05 Completed Unive rsity of 00:00:00 [place] [facility] HEP B, Adult Dosage 2017-09-05 Completed Unive rsity of 00:00:00 [place] [facility] HEP B, Adult Dosage 2017-09-05 Completed Unive rsity of 00:00:00 [place] [facility] HEP B, Adult Dosage 2017-09-05 Completed Unive rsity of 00:00:00 [place] [facility] HEP B, Adult Dosage 2017-09-05 Completed Unive rsity of 00:00:00 [facility] Pneumococcal 13 2015-02-19 Completed Universit [...] ical PPSV23 (PNEUMOVAX) Branch Pneumococcal 2011-02-19 Completed Paicines o f Polysaccharide, 00:00:00 [place] Med ical PPSV23 (PNEUMOVAX) Branch Pneumococcal 2011-02-19 Completed Paicines o f Polysaccharide, 00:00:00 [place] Med ical PPSV23 (PNEUMOVAX) Branch Vital Signs Vital Name Observation Time Observation Value Comments Source Systolic blood 2022-03-16 14:28:00 128 mm[Hg] Univer sity of pressure [facility] Diastolic blood 2022-03-16 14:28:00 70 mm[Hg] Unive rsity of [facility] Heart rate 2022-03-16 14:28:00 93 /min [facility] Body temperature 2022-03-16 14:28:00 35.67 Lizz [facility] Respiratory rate 2022-03-16 14:28:00 17 /min [facility] Body weight 2022-03-16 14:28:00 81.058 kg [facility] BMI 2022-03-16 14:28:00 34.90 kg/m2 [facility] Oxygen saturation in 2022-03-16 14:28:00 98 /min [facility] Arterial blood by [facility] Pulse oximetry Branch Systolic blood 2022-03-14 19:37:00 138 mm[Hg] Univer sity of pressure [facility] Diastolic blood 2022-03-14 19:37:00 87 mm[Hg] Unive rsity of pressure [facility] Heart rate 2022-03-14 19:37:00 94 /min [facility] Respiratory rate 2022-03-14 19:37:00 20 /min [facility] Body height 2022-03-14 19:37:00 152.4 cm [facility] Body weight 2022-03-14 19:37:00 80.74 kg [facility] BMI 2022-03-14 19:37:00 34.76 kg/m2 Universi ty of [place] [facility] Oxygen saturation in 2022-03-14 19:37:00 99 /min University of Arterial blood by [facility] Pulse oximetry Branch Systolic blood 2022-02-28 14:57:00 130 mm[Hg] Univer sity of pressure [place] [facility] Diastolic blood 2022-02-28 14:57:00 83 mm[Hg] Unive rsity of pressure [place] [facility] Heart rate 2022-02-28 14:57:00 117 /min Universi ty of [place] [facility] Respiratory rate 2022-02-28 14:57:00 20 /min Univ ersity of [place] [facility] Body height 2022-02-28 14:57:00 152.4 cm Universi ty of [place] [facility] Body weight 2022-02-28 14:57:00 80.377 kg Universi ty of [place] [facility] BMI 2022-02-28 14:57:00 34.61 kg/m2 Universi ty of [place] [facility] Oxygen saturation in 2022-02-28 14:57:00 99 /min University of Arterial blood by [facility] Pulse oximetry Branch Systolic blood 2022-02-19 17:58:00 140 mm[Hg] Univer sity of pressure [place] [facility] Diastolic blood 2022-02-19 17:58:00 95 mm[Hg] Unive rsity of pressure [place] [facility] Heart rate 2022-02-19 17:58:00 115 /min Universi ty [facility] [place] [facility] Body temperature 2022-02-19 13:46:00 36.78 Lizz Univ ersity of [place] [facility] Respiratory rate 2022-02-19 13:46:00 18 /min Univ ersity of [place] [facility] Oxygen saturation in 2022-02-19 13:46:00 94 /min University of Arterial blood by [facility] Pulse oximetry Branch Body weight 2022-02-18 10:44:00 83.462 kg Universi ty of [place] [facility] BMI 2022-02-18 10:44:00 35.94 kg/m2 [facility]i [facility] [place] [facility] Systolic blood 2022-02-16 16:07:00 116 mm[Hg] Univer sity of pressure [place] [facility] Diastolic blood 2022-02-16 16:07:00 71 mm[Hg] Unive rsity of pressure [place] [facility] Heart rate 2022-02-16 16:07:00 85 /min [facility] Body temperature 2022-02-16 16:07:00 36.89 Lizz [facility] Respiratory rate 2022-02-16 16:07:00 17 /min [facility] Body weight 2022-02-16 16:07:00 84.823 kg [facility] BMI 2022-02-16 16:07:00 36.52 kg/m2 [facility] Oxygen saturation in 2022-02-16 16:07:00 96 /min [facility] Arterial blood by [facility] Pulse oximetry [place] Systolic blood 2021-10-05 15:13:00 152 mm[Hg] Univer sity [facility] Diastolic blood 2021-10-05 15:13:00 77 mm[Hg] Unive [facility] Body height 2021-10-05 15:12:00 152.4 cm [facility] Body weight 2021-10-05 15:12:00 88.315 kg [facility] BMI 2021-10-05 15:12:00 38.02 kg/m2 [facility] Procedures Procedure Date / Time Performing Clinician Source Performed AUTHORIZATION FOR RELEASE 2022-03-23 06:01:00 Doctor Unassigned, [facility] [place] [facility] FLU 2022-03-16 14:43:42 Kia [facility] VACC([id number]),65+YR,0.5 Medica l Branch ML,IM,ADJUVANTED,QUAD(FLU AD) POCT GLUCOSE (AUTOMATED) 2022-02-19 17:59:00 Brii [facility] XR CHEST 2 VW 2022-02-19 16:23:57 Sriram Heath [facility] POCT GLUCOSE (AUTOMATED) 2022-02-19 13:45:00 Brii Samson [facility] MAGNESIUM 2022-02-19 12:23:00 Rocael Vaughan [facility] BASIC METABOLIC PANEL 2022-02-19 12:23:00 Rocael Vaughan [facility] (NA, K, CL, CO2, GLUCOSE, Medica l Branch BUN, CREATININE, CA) CBC WITH DIFF 2022-02-19 12:23:00 Rocael Vaughan [facility] N-TERMINAL PRO-BNP 2022-02-19 12:23:00 Rocael Vaughan [facility] POCT GLUCOSE (AUTOMATED) 2022-02-19 07:07:00 Brii Samson [facility] POCT GLUCOSE (AUTOMATED) 2022-02-19 06:10:00 OvMarcie youngi Uni [facility] POCT GLUCOSE (AUTOMATED) 2022-02-19 03:34:00 OvBrii young [facility] POCT GLUCOSE (AUTOMATED) 2022-02-18 23:14:00 Brii Samson [facility] POCT GLUCOSE (AUTOMATED) 2022-02-18 17:29:00 Brii Samson [facility] POCT GLUCOSE (AUTOMATED) 2022-02-18 13:40:00 Marcie Samsoni [facility] BASIC METABOLIC PANEL 2022-02-18 10:53:00 Rocael Vaughan [facility] (NA, K, CL, CO2, GLUCOSE, Medica l Branch BUN, CREATININE, CA) LIPID PANEL ([id number])(TOTAL 2022-02-18 10:53:00 [facility] CHOLESTEROL, Medical Branch TRIGLYCERIDES, HDL) CBC WITH DIFF 2022-02-18 10:53:00 Rocael Vaughan [facility] N-TERMINAL PRO-BNP 2022-02-18 10:53:00 Rocael Vaughan [facility] POCT GLUCOSE (AUTOMATED) 2022-02-18 02:34:00 Brii Samson [facility] POCT GLUCOSE (AUTOMATED) 2022-02-17 22:16:00 Marcie Samsoni [facility] POCT GLUCOSE (AUTOMATED) 2022-02-17 17:45:00 OvBrii young [facility] POCT GLUCOSE (AUTOMATED) 2022-02-17 14:01:00 [facility]TTE[facility] 2022-02-17 13:56:00 Chapin [facility] COMPLETE W/ CONTRAST Medical Bra nch MAGNESIUM 2022-02-17 09:47:00 Chapin [facility] BASIC METABOLIC PANEL 2022-02-17 09:47:00 Chapin [facility] (NA, K, CL, CO2, GLUCOSE, Medica l Branch BUN, CREATININE, CA) N-TERMINAL PRO-BNP 2022-02-17 09:47:00 Chapin [facility] POCT GLUCOSE (AUTOMATED) 2022-02-17 03:55:00 Chapin [facility] POCT GLUCOSE (AUTOMATED) 2022-02-17 03:16:00 Chapin [facility] URINALYSIS 2022-02-16 18:07:00 Bird [facility] [place] [facility] XR CHEST 1 VW 2022-02-16 17:06:49 Bird [facility] [place] [facility] LIPASE 2022-02-16 16:59:00 Bird [facility] [place] [facility] TROPONIN I 2022-02-16 16:59:00 Bird [facility] [place] [facility] HEPATIC FUNCTION PANEL 2022-02-16 16:59:00 Bird [facility] ([id number]) (ALB,T.PRO,BILI [facility] Branch T,BU/BC,ALT,AST,ALK PHOS) BASIC METABOLIC PANEL 2022-02-16 16:59:[address] [facility] (NA, K, CL, CO2, GLUCOSE, Medica l Branch BUN, CREATININE, CA) CBC WITH DIFF 2022-02-16 16:59:00 Bird [facility] [place] [facility] GLYCOSYLATED HEMOGLOBIN 2022-02-16 16:59:00 Chapin [facility] (A1C) [facility] N-TERMINAL PRO-BNP 2022-02-16 16:59:00 Marina Pang [facility] COVID-19 (ID NOW RAPID 2022-02-16 16:59:00 Marina Pang [facility] TESTING) Medical Branch LAB ONLY COVID 2022-02-16 16:59:00 Marina Pang [facility] [place] INTERPRETATION [facility] HB ECG ROUTINE & RHYTHM 2022-02-16 16:52:36 Marina Pang [facility] CONSENT/REFUSAL FOR 2022-02-16 16:40:37 Doctor Unassigned, [facility] DIAGNOSIS AND TREATMENT [place] [facility] POCT HEMOGLOBIN A1C TEST 2021-10-05 15:15:00 Amita Gomez [facility] Encounters Start End Encounter Admission Attending Care Care Encounter Source Date/Time Date/Time Type Type Clinicians Facility Department ID 2022-06-14 Outpatient Lamb, STLMLC [facility] [id number] Common 12:46:01 Elaine [id number] [facility] 2022-06-02 Out[facility] [id number] Common 14:48:01 Elaine [id number] [facility] 2020-12-17 Emergency [facility] [id number] Univers 21:39:43 [facility] 2020-12-17 [facility] [id number] Univers 18:26:55 alvino BARAKAT [facility] 2020-12-17 Emergency [facility] [id number] Univers 16:06:19 [facility] 2022-06-15 2022-06-15 Outpatient Moustapha ADAM [facility] [id number] Univers 09:00:00 09:00:00 SILVERIO [facility] 2022-04-27 2022-04-27 Outpatient Moustapha HEATH [facility] [id number] Univers 10:20:00 10:20:00 SRIRAM grove [facility] 2022-03-27 2022-03-27 Refill Kumar [facility] [id number] Univers 00:00:00 00:00:00 Qiachaim PALOMO [id number] [facility] [id number] [phone] [place] dical NAL 059 [facility] 2022-03-23 2022-03-23 Orders Doctor YANA [id number] Univers 00:00:00 00:00:00 Only Unassigned, CARLOS [id number] 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 [facility] [id number] Univers 08:00:00 08:15:00 Visit Silverio Adam [id number] ity of [facility] [id number] [phone] Ms dical NAL 353 [facility] 2022-03-22 2022-03-22 Outpatient R [facility] [id number] Univers 08:00:00 08:00:00 SILVERIO ity of [facility] 2022-03-16 2022-03-16 Outpatient R [facility] [id number] Univers 08:40:00 09:58:33 SILVERIO ity [facility] 2022-03-16 2022-03-16 Office [facility] 1.2.840.114 [id number] Univers 08:40:00 09:00:00 Visit Silverio PALOMO 350.1.13.10 i ty of [facility] [place] [phone] Ms dical NAL 059 [facility] 2022-03-14 2022-03-14 Office [facility] 1.2.840.114 [id number] Univers 13:40:00 14:00:00 Visit Sriram PALOMO 350.1.13.10 ity of [facility] [place] [id number] Ms dical NAL 059 [facility] 2022-03-142022-03-14 Outpatient R KUMAR, [facility] [id number] Univers 13:40:00 13:40:00 SRIRAM de oliveira o f [facility] 2022-03-09 2022-03-09 Outpatient R KIA, [facility] [id number] Univers 09:59:09 23:59:00 SILVERIO ity of [facility] 2022-02-28 2022-02-28 Outpatient R KUMAR, [facility] [id number] Univers 09:00:00 09:16:53 SRIRAM de oliveira o f [facility] 2022-02-28 2022-02-28 Office [facility] 1.2.840.114 [id number] Univers 09:00:00 09:16:53 Visit Sriram PALOM[place] 350.1.13.10 ity of [place] [id number] [facility] 059 Branch [facility] 2022-02-21 2022-02-21 Transition JONO Galvan 1.2.840.114 [id number] Univers 00:00:00 00:00:00 of Care Nara MG 350.1.13.10 it y of [place].2.[place] [id number] [facility] [address] 2022-02-16 2022-02-19 Inpatient X CHAPIN [facility] SAMI [id number] Univers 10:48:00 16:07:00 BRII ity of [facility] 2022-02-16 2022-02-19 [facility] Stephen PangeLeilani [facility] 1.2.840.11 [id number] Univers 10:48:00 16:07:00 Encounter Marcie Samsonkhadar PALOMO 350.1.13.10 ity of [place] [id number] [facility] 081 Branch 2022-02-16 2022-02-16 Fang Govea [facility] 1.2.840.114 [id number] Univers 09:45:00 10:05:00 Care Unknown, Attending HEALTH 350.1.13.10 ity of [place] 4.2.7.2.686 Bernabe as HUMPHREY?BLEA [id number] [facility] [address] MEDICAL OFFICE BUILDING 2022-02-16 2022-02-16 Outpatient R CASSI [facility] [id number] Univers 09:45:00 09:45:00 FANG de oliveira [facility] 2022-01-31 2022-01-31 Outpatient R KUMAR, [facility] [id number] Univers 14:20:00 14:20:00 SRIRAM grove [facility] 2022-01-31 2022-01-31 Outpatient R KUMAR, [facility] [id number] Univers 14:20:00 14:20:00 SRIRAM de oliveira o maine [facility] 2021-12-02 2021-12-02 Outpatient R KIA [facility] [id number] Univers 10:20:00 10:20:00 [facility] 2021-11-25 2021-11-25 Outpatient R KIA [facility] [id number] Univers 10:20:00 10:20:00 [facility] 2021-11-25 2021-11-25 Outpatient R KIA [facility] [id number] Univers 10:20:00 10:20:00 [facility] 2021-10-05 2021-10-05 Outpatient R AMITA GOMEZ [facility] [id number] Univers 10:30:00 11:22:11 AMITA GOMEZ [facility] 2021-10-05 2021-10-05 Office Amita Gomez [facility] 1.2.840.114 [id number] Univers 10:30:00 11:22:11 Visit HEALTH 350.1.13.10 it y of [place] 4.2.7.2.686 Bernabe as HUMPHREY?BLEA [id number] [facility] [address] MEDICAL OFFICE BUILDING 2021-09-21 2021-09-21 Telephone [facility] 1.2.544.405 [id number] Univers 00:00:00 00:00:00 Wentong HEALTH 350.1.13.10 it y of [place] 4.2.7.2.686 Bernabe as HUMPHREY?BLEA [phone] Ms dical KNEY [address] MEDICAL OFFICE BUILDING 2021-08-19 2021-08-19 Outpatient R SEWANI, [facility] [id number] Univers 11:20:00 11:20:00 SILVERIO [facility] 2021-08-16 2021-08-16 Outpatient R CASTLE, [facility] [id number] Univers 13:00:00 13:00:00 WENTONG [facility] 2021-08-01 2021-08-01 Office Kumar, [facility] 1.2.840.114 [id number] Univers 13:40:00 14:02:37 Visit Sriram PALOMO 350.1.13.10 ity jarek [place] [id number] [address] 2021-08-01 2021-08-01 Outpatient R KUMAR, [facility] [id number] Univers 13:40:00 14:02:37 QIACHAIM ity o [facility] 2021-08-01 2021-08-01 Outpatient R KUMAR, [facility] [id number] Univers 13:40:00 13:40:00 QIANGJUN ity o [facility] 2021-08-01 2021-08-01 Outpatient R KUMAR, [facility] [id number] Univers 13:40:00 13:40:00 QIANGJUN ity o [facility] 2021-08-01 2021-08-01 Outpatient R KUMAR, [facility] [id number] Univers 13:40:00 13:40:00 QIANGJUN ity o [facility] 2021-08-01 2021-08-01 Outpatient R KUMAR, [facility] [id number] Univers 13:40:00 13:40:00 QIANGJUN ity o [facility] 2021-07-22 2021-07-22 Refill Kumar, [facility] 1.2.840.114 [id number] Univers 00:00:00 00:00:00 Sriram PALOMO 350.1.13.10 ity jarek [place].2.[place] [id number] Ms dic[address] 2021-06-24 2021-06-24 Outpatient R KIA [facility] [id number] Univers 10:00:00 10:46:29 [facility] 2021-06-24 2021-06-24 Office [facility] 1.2.840.114 [id number] Univers 10:00:00 10:20:00 Visit Silverio PALOMO 350.1.13.10 i ty of [place] 4.2.7.2.686 Bernabelauryn CALIXTOMANUELA [id number] [address] 2021-06-24 2021-06-24 Outpatient R KIA [facility] [id number] Univers 10:00:00 10:00:00 [facility] 2021-06-24 2021-06-24 [facility] [id number] Univers 10:00:00 10:00:00 [facility] 2021-06-10 2021-06-10 Outpatient R KIA [facility] [id number] Univers 10:46:49 23:59:00 [facility] 2021-05-23 2021-05-23 Outpatient R KUMAR, [facility] [id number] Univers 15:00:00 15:00:00 SRIRAM diamond [facility] 2021-05-04 2021-05-04 Outpatient R KUMAR, [facility] [id number] Univers 08:00:00 23:59:00 SRIRAM de oliveira o [facility] 2021-05-04 2021-05-04 Outpatient R KUMAR, [facility] [id number] Univers 08:00:00 08:00:00 SRIRAM de oliveira o [facility] 2021-04-28 2021-04-28 Outpatient R BROOKS [facility] [id number] Univers 13:00:00 14:03:10 DIANN [facility] 2021-04-28 2021-04-28 Office [facility] .2.179.278 [id number] Univers 13:00:00 14:03:10 Visit Diann DEWEY 350.1.13.10 i ty [facility] 4.2.7.2.686 [place] [facility] [phone] Ms dical NAL [address] [facility] 2021-04-22 2021-04-22 Outpatient Moustapha TRIMBLEShweta MITCHELL [facility] [id number] Univers 15:40:00 15:40:00 MITCHELL GARCIA kelsie [facility] 2021-04-22 2021-04-22 Outpatient Moustapha JOSEMITCHELL Rock [facility] [id number] Univers 15:40:00 15:40:00 MITCHELL GARCIA kelsie [facility] 2021-04-22 2021-04-22 Outpatient Moustapha JOSEMITCHELL Rock [facility] [id number] Univers 15:40:00 15:40:00 MITCHELL GARCIA [facility] 2021-04-18 2021-04-19 Emergency X [facility] ERT [id number] Univers 22:42:00 02:27:00 BERNIEUSHO ity [facility] 2021-04-18 2021-04-19 Emergency [facility] 1.2.840.114 [id number] Univers 22:42:00 02:27:00 Celia PALOMO 350.1.13.10 ity [facility] 4.2.7.2.686 [place] [id number] [facility] [address] 2021-04-18 2021-04-19 [facility] [id number] Univers 22:42:00 02:27:00 FOLUSHO ity [facility] 2021-04-18 2021-04-18 Orders Doctor MILLAN 1.2.840.114 [id number] Univers 00:00:00 00:00:00 Only Unassigned, CARLOS 350.1.13.10 ity of [place] [facility] 4.2.7.2.686 Bernabe as [phone] [facility] [address] 2021-04-15 2021-04-15 [facility] 1.2.592.038 [id number] Univers 12:42:22 23:59:00 Encounter Clare PALOMO 350.1.13.10 ity of [place].2.7.2.686 [place] [id number] [facility] [address] 2021-04-15 2021-04-15 Outpatient R KUMAR [facility] [id number] Univers 10:00:00 10:33:44 SRIRAM ity o f [facility] 2021-04-15 2021-04-15 Office Kumar, [facility] 1.2.840.114 [id number] Univers 10:00:00 10:33:44 Visit Sriram BRYCE 350.1.13.10 ity [facility] 4.2.7.2.686 [place] [facility] [phone] Ms dical NAL 059 Branch BUILDING 2021-04-15 2021-04-15 Outpatient R KUMAR [facility] [id number] Univers 10:00:00 10:33:44 SRIRAM de oliveira o [facility] 2021-04-15 2021-04-15 Outpatient R MAJOR [facility] [id number] Univers 00:00:00 00:00:00 WONDIFUL martyy o f [facility] 2021-04-15 2021-04-15 Orders Doctor MILLAN 1.2.840.114 [id number] Univers 00:00:00 00:00:00 Only Unassigned, CARLOS 350.1.13.10 [facility] 4.2.7.2.686 Bernabe as [phone] [facility] [address] 2021-04-13 2021-04-13 Outpatient R TIN [facility] [id number] Univers 10:00:00 11:12:56 [facility] 2021-04-13 2021-04-13 Office Tin, [facility] 1.2.840.114 [id number] Univers 10:00:00 11:12:56 Visit [facility] 350.1.13.10 it y of [place] 4.2.7.2.686 Bernabe as HUMPHREY?BLEA [id number] Ms dical KNEY [address] MEDICAL OFFICE BUILDING 2021-04-13 2021-04-13 Outpatient R TIN [facility] [id number] Univers 10:00:00 11:12:56 WENTONG ity [facility] 2021-04-13 2021-04-13 Outpatient R CASTLE [facility] [id number] Univers 10:00:00 10:00:00 WENTONG ity of [facility] 2021-04-13 2021-04-13 Outpatient R TIN [facility] [id number] Univers 10:00:00 10:00:00 WENTONG ity of [facility] 2021-04-13 2021-04-13 Outpatient R CASTLE [facility] [id number] Univers 10:00:00 10:00:00 WENTONG ity [facility] 2021-04-12 2021-04-12 Nurse YANA Sanders 1.2.767.826 [id number] Univers 00:00:00 00:00:00 Triage Luis Alberto CARLOS 350.1.13.10 it y of [facility] 4.2.7.2.686 Bernabe as [phone] [address] 2021-04-07 2021-04-07 Telephone [facility] 1.2.108.758 [id number] Univers 00:00:00 00:00:00 Sriram [place] 350.1.13.10 ity of [place] [id number] Ms dical NAL [address] [place] [address] 2021-04-01 2021-04-01 Outpatient R KIA [facility] [id number] Univers 10:00:00 10:40:52 SILVERIO ity [facility] 2021-04-01 2021-04-01 Office [facility] 1.2.840.114 [id number] Univers 10:00:00 10:40:52 Visit Silverio BRYCE 350.1.13.10 i ty of [place] 4.[place].2.[place] [id number] Ms dical NAL [address] [place] [address] 2021-03-30 2021-03-30 Telephone [facility] 1.2.840.114 [id number] Univers 00:00:00 00:00:00 [facility] 350.1.13.10 ity of [place] 4.2.7.2.686 Bernabe as HUMPHREY?BLEA [phone] Me dical [address] OFFICE [facility] 2021-03-30 2021-03-30 Telephone Jose [facility] 1.2.840.114 [id number] Univers 00:00:00 00:00:00 Mitchell [facility] 350.1.13.[address] [facility] 4.2.7.2.686 Bernabe as HUMPHREY?ARLETTE [phone] [address] OFFICE [facility] 2021-03-29 2021-03-29 Outpatient MITCHELL TORRES [facility] [id number] Univers 08:00:00 09:38:08 JOSE MITCHELL kelsie [facility] 2021-03-29 2021-03-29 Outpatient MITCHELL TORRES [facility] [id number] Univers 08:00:00 09:38:08 MITCHELL GARCIA kelsie [facility] 2021-03-29 2021-03-29 Outpatient MITCHELL TORRES [facility] [id number] Univers 08:00:00 08:00:00 MITCHELL GARCIA [facility] 2021-03-29 2021-03-29 Orders Doctor MILLAN 1.2.840.114 [id number] Univers 00:00:00 00:00:00 Only Unassigned, CARLOS 350.1.13.[address] [facility] 4.2.7.2.686 Bernabe as [id number] [address] 2021-03-23 2021-03-23 Outpatient Moustapha HEATH [facility] [id number] Univers 15:40:00 16:06:08 SRIRAM de oliveira o f [facility] 2021-03-23 2021-03-23 Office [facility] 1.2.840.114 [id number] Univers 15:40:00 16:06:08 Visit Sriram PALOMO 350.1.13.10 ity [facility] 4.2.7.2.[place] [phone] Ms jamilahelinor [facility] 059 [facility] 2021-03-23 2021-03-23 Outpatient Moustapha HETAH [facility] [id number] Univers 16:00:00 16:00:00 SRIRAM de oliveira o f [facility] 2021-03-22 2021-03-22 Telephone [facility] 1.2.840.114 [id number] Univers 00:00:00 00:00:00 Diann DEWEY 350.1.13.10 i ty of [place] 4.2.7.2.686 [place] [id number] Ms dical NAL 188 [facility] 2021-03-21 2021-03-21 Spinning Operator [place], [facility] Lab Main [facility] 1.2.8 40.114 [id number] Univers 14:45:00 15:00:00 Visit [facility] 350.1 .13.10 ity of [place].2.7.2.[place] [phone] [facility] 353 [facility] 2021-03-21 2021-03-21 Outpatient R LAUREL [facility] [id number] Univers 14:45:00 14:45:00 [facility] 2021-03-21 2021-03-21 Outpatient R LAUREL [facility] [id number] Univers 14:45:00 14:45:00 [facility] 2021-03-21 2021-03-21 Orders Doctor YANA 1.2.840.114 [id number] Univers 00:00:00 00:00:00 Only Unassigned, CARLOS 350.1.13.10 ity of [place] [facility] 4.2.7.2.686 Bernabe as [id number] [facility] [address] 2021-03-21 2021-03-21 Telephone HiramclemenciarussellGLENNA 1.2.840.114 [id number] Univers 00:00:00 00:00:00 [facility] 350.1.13.10 i ty of [facility] 4.2.7.2.686 [place] [id number] [facility] [address] 2021-03-20 2021-03-20 Nurse YANA Bautista 1.2.840.114 [id number] Univers 00:00:00 00:00:00 Triage Cielo CARLOS 350.1.13.10 it y of HOSPITAL 4.2.7.2.686 Bernabe as [id number] [facility] [address] [place] 2021-03-18 2021-03-18 Emergency [facility] 1.2.840.114 [id number] Univers 17:02:00 22:45:00 Ananya PALOMO 350.1.13.10 ity of [place] 4.2.7.2.686 [place] [id number] [facility] [address] 2021-03-18 2021-03-18 Emergency X [facility] ERT [id number] Univers 17:02:00 17:02:00 ANANYA itkelsie [facility] 2021-03-18 2021-03-18 Emergency X [facility] ERT [id number] Univers 16:34:00 16:34:00 itkelsie [facility] 2021-03-18 2021-03-18 Outpatient R EPI [facility] [id number] Univers 15:00:00 16:15:48 JENNIE martykelsie [facility] 2021-03-18 2021-03-18 Office [facility] 1.2.840.114 [id number] Univers 15:00:00 16:15:48 Visit [facility] 350.1.13.10 it y of [place] 4.2.7.2.686 Bernabe as HUMPHREY?BLEA [phone] [address] MEDICAL OFFICE BUILDING 2021-03-18 2021-03-18 Outpatient R [facility] ERT [id number] Univers 15:00:00 16:15:48 JENNIE alvino [facility] 2021-03-18 2021-03-18 Outpatient R EPI [facility] [id number] Univers 15:00:00 16:15:48 [facility] 2021-03-18 2021-03-18 Transition JONO Galvan 1.2.840.114 [id number] Univers 00:00:00 00:00:00 of Care Nara MG 350.1.13.10 it y [facility] 4.2.7.2.686 [place] [id number] [facility] [address] 2021-03-12 2021-03-17 Inpatient X [facility] [id number] Univers 12:11:00 15:43:00 [facility] 2021-03-12 2021-03-17 Hospital AaronDamien nieto 1.2.840 .114 [id number] Univers 12:11:00 15:43:00 Encounter Soni Hunter nyhina CARLOS 350.1.13.10 ity of [facility] 4.2.7.2.686 [place] [id number] [facility] [address] 2021-03-12 2021-03-17 Inpatient X [facility] [id number] Univers 12:11:00 15:43:00 [facility] ity [facility] 2021-03-17 2021-03-17 Nurse Esperanza Cronin 1.2.840.114 [id number] Univers 00:00:00 00:00:00 Triage CARLOS 350.1.13.10 it y of [facility] 4.2.7.2.686 Bernabe as [id number] [facility] [address] 2021-03-16 2021-03-16 Case Willian, [facility] 1.2.840.114 [id number] Univers 00:00:00 00:00:00 Management Wissam Y HEALTH 350.1.13.10 ity of [place] [facility] 4.2.7.2.[place] [id number] [facility] [address] 2021-03-16 2021-03-16 Case Willian, [facility] 1.2.840.114 [id number] Univers 00:00:00 00:00:00 Management Wissam Y HEALTH 350.1.13.10 ity of [place] [facility] 4.2.7.2.[place] [id number] [facility] [address] 2021-03-11 2021-03-11 Transition JONO Galvan 1.2.840.114 [id number] Univers 00:00:00 00:00:00 of Care Nara CASEYY 350.1.13.10 it y of [place] 4.2.7.2.686 [place] [id number] [facility] [address] 2021-03-11 2021-03-11 Telephone [facility] 1.2.632.220 [id number] Univers 00:00:00 00:00:00 Sriram PALOMO 350.1.13.10 ity [facility] 4.2.7.2.686 [place] [id number] Ms dical NAL 059 [facility] 2021-03-07 2021-03-10 Outpatient X ANUJ GONZALES [facility] SAMI [id number] Univers 08:28:00 14:20:00 ity of [facility] 2021-03-07 2021-03-10 Emergency Hudson Wolfe 1.2.840. 114 [id number] Univers 08:28:00 14:20:00 Anuj Gonzales Leslie RENEE 350.1.13.1 0 ity [facility] 4.2.7.2.686 Bernabe as [id number] [facility] [address] 2021-03-07 2021-03-10 Outpatient X ANUJ GONZALES [facility] SAMI [id number] Univers 08:28:00 14:20:00 ity of [facility] 2021-03-09 2021-03-09 Surgery Misael Castro [facility] 1.2.840.114 [id number] Univers 09:36:00 10:16:00 David ABBASI 350.1.13.10 it y of [place] 4.2.7.2.686 Bernabe as BLDG [id number] [facility] [address] 2021-03-03 2021-03-03 Out[facility] [id number] Univers 14:00:00 14:44:31 SHANTEL ity [facility] 2021-03-03 2021-03-03 Office [facility]PRES[facility] 1.2.840.114 [id number] Univers 14:00:00 14:44:31 Visit Shantel PALOMO 350.1.13.10 ity [facility] 4.2.7.2.686 [place] [id number] Ms dical NAL 188 [facility] 2021-03-03 2021-03-03 Outpatient R BROKOS [facility] [id number] Univers 14:00:00 14:00:00 DIANN ity [facility] 2021-02-08 2021-02-08 Office Sabina Barba [facility] 1.2.840.114 [id number] Univers 15:30:00 16:44:10 Visit KHLOE 350.1.13.10 it y of [facility] 4.2.7.2.[place] [id number] [address] 2021-02-08 2021-02-08 Outpatient R SABINA BARBA [facility] [id number] Univers 15:30:00 16:44:10 ity [facility] 2021-02-08 2021-02-08 Outpatient R SABINA BARBA [facility] [id number] Univers 15:30:00 16:44:10 ity [facility] 2021-02-08 2021-02-08 Outpatient R SABINA BARBA [facility] [id number] Univers 15:30:00 15:30:00 ity [facility] 2021-02-08 2021-02-08 Outpatient R SABINA BARBA [facility] [id number] Univers 15:30:00 15:30:00 [facility] 2021-02-03 2021-02-03 Case [facility] 1.2.840.114 [id number] Univers 00:00:00 00:00:00 Management Wondiful A HEALTH 350.1.13.10 ity of [place] 4.2.7.2.686 Bernabe as HUMPHREY?BLEA [id number] [facility] [address] MEDICAL OFFICE BUILDING 2021-02-01 2021-02-01 Office [facility] 1.2.840.114 [id number] Univers 15:30:00 16:58:42 Visit Ericka HEALTH 350.1.13.10 it y of [place] 4.2.7.2.686 Bernabe as HUMPHREY?BLEA [id number] [facility] [address] MEDICAL OFFICE BUILDING 2021-02-01 2021-02-01 Outpatient [facility] [id number] Univers 15:30:00 16:58:42 ERICKA ity [facility] 2021-02-012021-02-01 Outpatient R MEKA [facility] [id number] Univers 16:30:00 16:30:00 ERICKA kelsie [facility] 2021-02-01 2021-02-01 Spinning Operator Lab, Royal Hardin [facility] 1.2.840.1 [id number] Univers 16:02:42 16:17:42 Visit [facility] [place] 350.1.13.10 it[facility] 4.2.7.2.686 Bernabe as HUMPHREY?BLEA [id number] [address] OFFICE [facility] 2021-02-01 2021-02-01 Outpatient R MEKA [facility] [id number] Univers 15:30:00 15:30:00 ERICKA [facility] 2021-01-31 2021-01-31 [facility] [id number] Univers 13:40:00 13:44:29 [facility] 2021-01-31 2021-01-31 [facility] [id number] Univers 13:40:00 13:44:29 SRIRAM [facility] 2021-01-31 2021-01-31 [facility] 1.2.840.114 [id number] Univers 13:18:52 13:44:29 [facility] [id number] [id number] [phone] [facility] 059 [facility] 2021-01-31 2021-01-31 [facility] [id number] Univers 13:40:00 13:40:00 SRIRAM y o [facility] 2021-01-31 2021-01-31 Spinning Operator Lab, Royal - Wilfred [facility] 1.2.840.1 [id number] Univers 10:03:00 10:18:00 [facility] [id number] [facility] [id number] Bernabe as HUMPHREY?BLEA [phone] [address] MEDICAL OFFICE [facility] 2021-01-31 2021-01-31 Office [facility] 1.2.840.114 [id number] Univers 09:22:40 10:03:18 Visit Wondiful A HEALTH 350.1.13.10 ity of [place] 4.2.7.2.686 Bernabe as HUMPHREY?BLEA [phone] Ms sherif HOLLAND [address] [place] MEDICAL OFFICE [facility] 2021-01-31 2021-01-31 [facility] [id number] Univers 09:30:00 09:30:00 WONDIFUL ity o f [facility] 2021-01-11 2021-01-11 Case [facility] 1.2.840.114 [id number] Univers 00:00:00 00:00:00 Management Wondiful A HEALTH 350.1.13.10 ity of [place] 4.2.7.2.686 Bernabe as HUMPHREY?BLEA [phone] Ms sherif HOLLAND [address] [place] MEDICAL OFFICE [facility] 2021-01-07 2021-01-07 [facility] [id number] Univers 16:30:00 23:59:00 WONDIFUL ity o f [facility] 2021-01-07 2021-01-07 Hospital [facility] 1.2.385.741 [id number] Univers 16:30:00 23:59:00 Encounter Wondiful A HEALTH 350.1.13.10 ity of [place] 4.2.7.2.686 Bernabe as HUMPHREY?BLEA [phone] Ms sherif HOLLAND [address] [place] MEDICAL OFFICE [facility] 2021-01-07 2021-01-07 Spinning Operator Lab, Ang - Db [facility] 1.2.840.1 14 [id number] Univers 16:36:52 16:51:52 Visit Clare Gonsalves A HEALTH 350.1.13.1 0 ity of [place] 4.2.7.2.686 Bernabe as HUMPHREY?BLEA [phone] Ms sherif HOLLAND [address] [place] MEDICAL OFFICE BUILDING 2021-01-07 2021-01-07 [facility] [id number] Univers 16:15:00 16:37:00 WONDIFUL ity o f [facility] 2021-01-07 2021-01-07 Office [facility] 1.2.840.114 [id number] Univers 15:34:25 16:37:00 Visit Wondiful A HEALTH 350.1.13.10 ity of [place] 4.2.7.2.686 Bernabe as HUMPHREY?BLEA [phone] [address] MEDICAL OFFICE [facility] 2021-01-05 2021-01-05 Telephone [facility] 1.2.840.114 [id number] Univers 00:00:00 00:00:00 Wondiful A HEALTH 350.1.13.10 ity of [place] 4.2.7.2.686 Bernabe as HUMPHREY?BLEA [phone] [address] OFFICE [facility] 2020-12-28 2020-12-28 Outpatient R KIA [facility] [id number] Univers 14:00:00 14:00:00 SILVERIO ity of [facility] 2020-12-27 2020-12-27 Outpatient R MAJOR [facility] [id number] Univers 13:14:51 23:59:00 WONDIFUL ity o f [facility] 2020-12-27 2020-12-27 [facility] 1.2.840.034 [id number] Univers 13:00:00 23:59:00 Encounter Wondiful A [place] 350.1.13.10 ity of [place] 4.2.7.2.[address] [facility] [phone] [address] 2020-12-27 2020-12-27 Outpatient [facility] [id number] Univers 00:00:00 00:00:00 WONDIFUL ity o f [facility] 2020-12-13 2020-12-13 [facility]phone [facility] 1.2.840.114 [id number] Univers 00:00:00 00:00:00 Wondiful A Health 350.1.13.10 ity of [place] 4.2.7.2.686 Bernabe as Humphrey?Blea [phone] [address] Medical Office [facility] 2020-12-132020-12-13 Telephone Major DARYL 1.2.840.114 [id number] Univers 00:00:00 00:00:00 Wondiful A Health 350.1.13.10 ity of [place] 4.2.7.2.686 Bernabe as Humphrey?Blea [phone] [address] Office [facility] 2020-12-06 2020-12-06 Telephone Major DARYL 1.2.840.114 [id number] Univers 00:00:00 00:00:00 Wondiful A Health 350.1.13.10 ity of [place] 4.2.7.2.686 Bernabe as Humphrey?Blea [phone] [address] 2020-12-03 2020-12-03 Spinning Operator Lab, Ang - Db [facility] 1.2.840.1 14 [id number] Univers 16:48:38 17:03:11 Visit Clare Gonsalves Health 350.1.13.1 0 ity of [place] 4.2.7.2.686 Bernabe as Humphrey?Blea [phone] [address] Office [facility] 2020-12-03 2020-12-03 Spinning Operator Lab, Ang - Db [facility] 1.2.840.1 14 [id number] Univers 16:48:38 17:03:11 Visit Clare Gonsalves Health 350.1.13.1 0 ity of [place] 4.2.7.2.686 Bernabe as Humphrey?Blea [phone] [address] Office [facility] 2020-12-03 2020-12-03 Spinning Operator Lab, Ang - Db [facility] 1.2.840.1 14 [id number] Univers 16:48:38 17:03:11 Visit Claer Gonsalves HEALTH 350.1.13.1 0 ity of [place] 4.2.7.2.686 Bernabe as HUMPHREY?BLEA [phone] [address] OFFICE [facility] 2020-12-03 2020-12-03 Office JAYNE GonsalvesMB 1.2.840.114 [id number] Univers 15:32:14 16:49:03 Visit Wondiful A Health 350.1.13.10 ity of [place] 4.2.7.2.686 Bernabe as Humphrey?Blea [phone] Ms sherif kney 044 [facility] Office [facility] 2020-12-03 2020-12-03 Outpatient R AMJOR [facility] [id number] Univers 15:45:00 15:45:00 WONDIFUL ity o f [facility] 2020-11-23 2020-11-23 Office [facility] 1.2.840.114 [id number] Univers 09:49:05 10:43:01 Visit Silverio [place] 350.1.13.10 i ty of [place] 4.2.7.2.686 [place] Profess[place] [phone] [address] 2020-11-23 2020-11-23 Outpatient R KIA [facility] [id number] Univers 10:00:00 10:00:00 SILVERIO ity of [facility] 2020-11-15 2020-11-15 Refisra HeathPRES[facility] 1.2.840.114 [id number] Univers 00:00:00 00:00:00 Qiangjun [place] 350.1.13.10 ity of [place].2.7.2.[place] Profess[place] [phone] [address] 2020-11-15 2020-11-15 Refisra [facility]vesPRES[facility] 1.2.840.114 [id number] Univers 00:00:00 00:00:00 Wondiful A [place] 350.1.13.10 ity of [place] 4.2.7.2.686 [place] [phone] [address] 2020-11-11 2020-11-11 Cali [facility]vesPRES[facility] 1.2.840.114 [id number] Univers 00:00:00 00:00:00 Wondiful A Health 350.1.13.10 ity of [place] 4.2.7.2.686 Bernabe as Professio [phone] [address] One 2020-10-05 2020-10-05 Refisra [facility] 1.2.840.114 [id number] Univers 00:00:00 00:00:00 Wondiful A Health 350.1.13.10 ity of [place] 4.2.7.2.686 Bernabe as Professio [phone] [address] 2020-10-04 2020-10-04 Orders Doctor YANA 1.2.840.114 [id number] Univers 00:00:00 00:00:00 Only Unassigned, CARLOS 350.1.13.10 ity of [place] [facility] 4.2.7.2.686 Bernabe as [phone] [address] 2020-09-24 2020-09-24 Refisra [facility]PRES[facility] 1.2.840.114 [id number] Univers 00:00:00 00:00:00 Wondiful A Health 350.1.13.10 ity of [place] 4.2.7.2.686 Bernabe as Professio [phone] [facility] 044 [facility] 2020-09-09 2020-09-09 Cali Heath [facility] 1.2.840.114 [id number] Univers 00:00:00 00:00:00 Qiangjun [place] 350.1.13.10 ity of [place] 4.2.7.2.686 [place] [phone] [facility] 059 [facility] 2020-09-03 2020-09-03 Refisra [facility] 1.2.840.114 [id number] Univers 00:00:00 00:00:00 Wondiful A Health 350.1.13.10 ity of [place] 4.2.7.2.686 Bernabe as Professio [phone] [address] 2020-07-27 2020-07-27 Outpatient R KIA WAJENNI [facility] [id number] Univers 10:20:00 10:20:00 SILVERIO ity of [facility] 2020-07-27 2020-07-27 Office Kia WAJENNI 1.2.840.114 [id number] Univers 09:56:55 10:16:55 [facility] 350.1.13.10 i ty of [place].2.7.2.686 [place] [phone] [facility] 059 [facility] 2020-07-13 2020-07-13 Orders Doctor YANA 1.2.840.114 [id number] Univers 00:00:00 00:00:00 Only Unassigned, CARLOS 350.1.13.10 [facility] 4.2.7.2.686 Bernabe as [phone] [address] 2020-07-08 2020-07-08 Refisra Gonsalves [facility] 1.2.840.114 [id number] Univers 00:00:00 00:00:00 Wondiful A Health 350.1.13.10 ity of [place] 4.2.7.2.686 Bernabe as Professio [phone] [facility] [address] [place] Office Building One 2020-06-29 2020-06-29 Outpatient R [facility] [id number] Univers 10:30:00 10:30:00 ity [facility] 2020-06-29 2020-06-29 [facility] [id number] Univers 10:30:00 10:30:00 SILVERIO ity [facility] 2020-06-07 2020-06-07 Office KumarPRES[facility] 1.2.840.114 [id number] Univers 13:02:14 13:29:23 Visit Sriram [place] 350.1.13.10 ity of [place] 4.2.7.2.686 [place] [phone] [facility] 059 [facility] 2020-06-07 2020-06-07 [facility] [id number] Univers 13:00:00 13:00:00 SRIRAM de oliveira o [facility] 2020-06-02 2020-06-02 Outpatient R DEE [facility] [id number] Univers 19:20:00 19:20:00 VIRI de oliveira o [facility] 2020-06-02 2020-06-02 Laboratory Lab, Adc Fam Pob I [facility] 1.2. 840.114 [id number] Univers 18:38:28 18:58:28 Only Karla Garcia [facility] 350.1.13.10 ity of [place] 4.2.7.2.686 [phone] [address] Office [facility] 2020-06-02 2020-06-02 Letter Doctor YANA 1.2.840.114 [id number] Univers 00:00:00 00:00:00 (Out) Unassigned, CARLOS 350.1.13.10 ity of [place] [facility] 4.2.7.2.686 Bernabe as [phone] [address] 2020-06-02 2020-06-02 Letter Doctor YANA 1.2.840.114 [id number] Univers 00:00:00 00:00:00 (Out) Unassigned, CARLOS 350.1.13.10 ity of [place] [facility] 4.2.7.2.686 Bernabe as [phone] [address] 2020-06-02 2020-06-02 Letter Doctor YANA 1.2.840.114 [id number] Univers 00:00:00 00:00:00 (Out) Unassigned, CARLOS 350.1.13.10 ity of [place] [facility] 4.2.7.2.686 Benrabe as [phone] [address] 2020-06-02 2020-06-02 Letter Doctor YANA 1.2.840.114 [id number] Univers 00:00:00 00:00:00 (Out) Unassigned, CARLOS 350.1.13.10 ity of [place] [facility] 4.2.7.2.686 Bernabe as [phone] [address] 2020-05-20 2020-05-20 YANA Salmon 1.2.857.914 [id number] 00:00:00 00:00:00 Teri RENEE 350.1.13.10 HOSPITAL 4.2.7.2.686 [phone] [facility] 2020-05-20 2020-05-20 Telephone YANA Samano 1.2.937.579 [id number] Univers 00:00:00 00:00:00 Teri RENEE 350.1.13.10 ity of [facility] 4.2.7.2.686 Bernabe as [phone] [facility] [address] [place] 2020-04-28 2020-04-28 Refill [facility] 1.2.840.114 [id number] Univers 00:00:00 00:00:00 Silverio [place] 350.1.13.10 i ty of [place].2.7.2.686 [place] [phone] [address] 2020-04-27 2020-04-27 [facility] 1.2.840.114 [id number] Univers 11:25:29 11:45:29 Visit Silverio [place] 350.1.13.10 i ty of [place] 4.2.7.2.686 [place] [phone] [address] 2020-04-27 2020-04-27 [facility] [id number] Univers 11:40:00 11:40:00 SILVERIO ity [facility] 2020-04-26 2020-04-26 Outpatient [facility] [id number] Univers 10:20:00 10:20:00 ERICH ity [facility] 2020-04-14 2020-04-14 [facility] 1.2.175.302 [id number] Univers 09:18:24 23:59:00 Encounter Wondiful Lauryn Palomo 350.1.13.10 ity [facility] 4.2.7.2.686 [place] [phone] [facility] [address] [place] 2020-04-14 2020-04-14 Outpatient [facility] [id number] Univers 00:00:00 00:00:00 WONDIFUL ity o f [facility] 2020-03-31 2020-03-31 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 10 ity of [place] 4.2.7.2.686 [place] [phone] Ms dical nal 353 [facility] 2020-03-31 2020-03-31 Outpatient [facility] [id number] Univers 09:15:00 09:15:00 WONDIFUL ity o f [facility] 2020-03-30 2020-03-30 Laboratory Pacemaker/Icd, [facility] 1.2. 840.114 [id number] Univers 12:51:02 13:15:05 Only Sewdom, Silverio Dewey 350.1.13.10 ity of [place] 4.2.7.2.686 [place] [phone] [facility] 059 [facility] 2020-03-30 2020-03-30 Outpatient R [facility] [id number] Univers 13:00:00 13:00:00 ity of [facility] 2020-03-29 2020-03-29 Office [facility] 1.2.840.114 [id number] Univers 15:15:24 16:12:41 [facility]yn [facility] 350.1.13.10 ity of [place] 4.2.7.2.686 Bernabe as Professio [phone] [facility] [address] [place] [address] Building One 2020-03-29 2020-03-29 Outpatient [facility] [id number] Univers 15:30:00 15:30:00 WONDIFUL ity o f [facility] 2020-03-03 2020-03-03 Orders Doctor YANA 1.2.840.114 [id number] Univers 00:00:00 00:00:00 Only Unassigned, CARLOS 350.1.13.10 ity of [place] [facility] 4.2.7.2.686 Bernabe as [phone] [address] 2020-02-03 2020-02-03 Outpatient [facility] [id number] Univers 14:20:00 14:20:00 SRIRAM ity o f [facility] 2020-02-03 2020-02-03 Office [facility] 1.2.840.114 [id number] Univers 13:38:09 14:13:45 Visit Guillechaim Palomo 350.1.13.10 ity of [place] 4.2.7.2.686 [place] [phone] Ms dicga nal [address] [place] [address] 2020-01-27 2020-01-27 Office [facility] 1.2.840.114 [id number] Univers 10:58:57 11:32:49 Visit Silverio Dewey 350.1.13.10 i ty of [place] 4.2.7.2.686 [place] [phone] [address] 2020-01-27 2020-01-27 Outpatient R [facility] [id number] Univers 11:00:00 11:00:00 SILVERIO ity of [facility] 2020-01-20 2020-01-20 Orders Doctor YANA 1.2.840.114 [id number] Univers 00:00:00 00:00:00 Only Unassigned, CARLOS 350.1.13.10 ity of [place] [facility] 4.2.7.2.686 Bernabe as [phone] [address] 2020-01-20 2020-01-20 Telephone [facility] 1.2.072.891 [id number] Univers 00:00:00 00:00:00 Sriram Pal[place] 350.1.13.10 ity of [place] 4.2.7.2.686 [place] [phone] Ms dic[address] 2020-01-20 2020-01-20 Refill [facility] 1.2.840.114 [id number] Univers 00:00:00 00:00:00 Qiachaim Palomo 350.1.13.10 ity of [place] 4.2.7.2.686 [place] [phone] Ms dicga nal [address] [place] [address] 2020-01-14 2020-01-14 Orders Doctor YANA 1.2.840.114 [id number] Univers 00:00:00 00:00:00 Only Unassigned, CARLOS 350.1.13.10 ity of [place] [facility] 4.2.7.2.686 Bernabe as [phone] [address] 2020-01-12 2020-01-12 Outpatient R KUMAR, [facility] [id number] Univers 10:00:00 10:00:00 DIMITRIZECHARIAH itkelsie o f [facility] 2020-01-05 2020-01-05 Spinning Operator 2, Adc Lab [facility] 1.2.840.114 [id number] Univers 15:31:18 15:46:18 Visit Omole, Min Palomo 350.1.1 3.10 ity of [place] 4.2.7.2.686 [place] [phone] Ms dical nal 353 [facility] 2020-01-05 2020-01-05 Office krystle, [facility] 1.2.840.114 [id number] Univers 14:39:45 15:28:14 Visit Min Palomo 350.1.13.10 i ty of [place] 4.2.7.2.686 [place] [phone] Ms dicga nal 059 [facility] 2020-01-05 2020-01-05 Outpatient R FREDDY, [facility] [id number] Univers 14:45:00 14:45:00 MIN ity of [facility] 2020-01-05 2020-01-05 Orders Doctor MILLAN 1.2.840.114 [id number] Univers 00:00:00 00:00:00 Only Unassigned, CARLOS 350.1.13.10 ity of [place] [facility] 4.2.7.2.686 Bernabe as [phone] [address] 2020-01-01 2020-01-01 Telephone Kumar, [facility] 1.2.260.258 [id number] Univers 00:00:00 00:00:00 Dimitrizechariah Dewey 350.1.13.10 ity of [place] 4.2.7.2.686 [place] [phone] Ms dicga nal 059 [facility] 2019-12-19 2019-12-19 Office [facility] 1.2.840.114 [id number] Univers 11:30:41 12:16:36 Visit Nita Pal[place] 350.1.13.10 i ty of [place] 4.2.7.2.686 [place] [phone] Ms dical nal 085 [facility] 2019-12-19 2019-12-19 Outpatient R NITA DEGROOT [facility] 10 [id number] Univers 11:40:00 11:40:00 NITA DEGROOT i ty of [facility] 2019-12-19 2019-12-19 Telephone [facility] 1.2.354.604 [id number] Univers 00:00:00 00:00:00 Qialisazechariah Palomo 350.1.13.10 ity of [place] 4.2.7.2.686 [place] [phone] Ms dicga nal 059 [facility] 2019-12-18 2019-12-18 Orders Doctor YANA 1.2.840.114 [id number] Univers 00:00:00 00:00:00 Only Unassigned, CARLOS 350.1.13.10 ity of [place] [facility] 4.2.7.2.686 Bernabe as [phone] [address] 2019-12-16 2019-12-16 Office [facility] 1.2.840.114 [id number] Univers 08:53:47 09:13:47 Visit Silverio [place] 350.1.13.10 i ty of [place] 4.2.7.2.686 [place] [phone] [facility] nal 059 [facility] 2019-12-16 2019-12-16 Outpatient R KIA [facility] [id number] Univers 09:00:00 09:00:00 SILVERIO ity of [facility] 2019-12-15 2019-12-15 Telephone [facility] 1.2.840.114 [id number] Univers 00:00:00 00:00:00 Wondiful A Health 350.1.13.10 ity of [place] 4.2.7.2.686 Bernabe as Professio [phone] [facility] [address] [place] Office [facility] 2019-12-15 2019-12-15 Case [facility] 1.2.840.114 [id number] Univers 00:00:00 00:00:00 Management Wondiful A Health 350.1.13.10 ity of [place] 4.2.7.2.686 Bernabe as Professio [phone] [facility] 0[address] [place] Office Building [facility] 2019-12-10 2019-12-10 Orders Doctor YANA 1.2.840.114 [id number] Univers 00:00:00 00:00:00 Only Unassigned, CARLOS 350.1.13.10 ity of [place] [facility] 4.2.7.2.686 Bernabe as [phone] [address] 2019-12-09 2019-12-09 Urgent Provider, [facility]gent Care [facility] 1.2.840.114 [id number] Univers 14:46:41 15:59:38 Care Yeni Mccormick[facility] 350.1.13.10 ity of [place] 4.2.7.2.686 Bernabe as Professio [phone] [address] Office [facility] 2019-12-09 2019-12-09 Outpatient R LUKE [facility] [id number] Univers 15:00:00 15:00:00 MONICA ity of [facility] 2019-12-04 2019-12-04 Office [facility] 1.2.840.114 [id number] Univers 12:39:51 13:39:11 Visit Wonjoshua A Health 350.1.13.10 ity of [place] 4.2.7.2.686 Bernabe as Professio [phone] [address] Office [facility] 2019-12-04 2019-12-04 [facility] [id number] Univers 13:00:00 13:00:00 WONDIFUL ity o f [facility] 2019-12-02 2019-12-02 Laboratory Pacemaker/Icd, [facility] 1.2. 840.114 [id number] Univers 10:50:24 11:27:03 Only Sriram [place] 350.1.13.10 ity of [place] 4.[place].7.2.686 [place] [phone] [facility] 059 [facility] 2019-12-02 2019-12-02 Outpatient R [facility] [id number] Univers 11:00:00 11:00:00 ity of [facility] 2019-12-02 2019-12-02 Telephone [facility] 1.2.840.114 [id number] Univers 00:00:00 00:00:00 Wondiful A Health 350.1.13.10 ity of [place] 4.2.7.2.686 Bernabe as Professio [phone] Ms dical nal [address] [place] Office [facility] 2019-12-01 2019-12-01 Office [facility] 1.2.840.114 [id number] Univers 15:16:46 16:01:04 Visit Sriram Palomo 350.1.13.10 ity of [place].7.2.686 [place] [phone] Ms dical nal 059 [facility] 2019-12-01 2019-12-01 Outpatient R KUMAR [facility] [id number] Univers 15:40:00 15:40:00 GUILLELISAZECHARIAH martyy o f [facility] 2019-12-01 2019-12-01 Transition Jono Mccurdy 1.2.840.114 [id number] Univers 00:00:00 00:00:00 of Care Jo L Mg 350.1.13.10 i ty of [place] 4.2.7.2.686 [place] [phone] [facility] [address] [place] 2019-11-26 2019-11-28 Hospital Kirt Thomason [facility] 1.2.840.1 14 [id number] Univers 14:42:00 15:06:00 Encounter Gab Servin 350.1.13.10 ity of [place] 4.2.7.2.686 [place] [phone] [facility] [address] 2019-11-26 2019-11-28 Inpatient X GAB SERVIN [facility] SAMI [id number] Univers 14:42:00 15:06:00 ity of [facility] 2019-11-26 2019-11-26 Telephone [facility] 1.2.840.114 [id number] Univers 00:00:00 00:00:00 Wondiful A Health 350.1.13.10 ity of [place] 4.2.7.2.686 Bernabe as Professio [phone] Ms dical nal [address] [place] Office [address] One 2019-11-24 2019-11-24 Telemedici [facility] 1.2.840.114 [id number] Univers 12:42:21 16:15:48 ne Visit Wondiful A Health 350.1.13.10 ity of [place] 4.2.7.2.686 Bernabe as Professio [phone] [facility] nal [address] [place] Office Building One 2019-11-24 2019-11-24 Outpatient [facility] [id number] Univers 15:30:00 15:30:00 WONDIFUL ity o f [facility] 2019-11-24 2019-11-24 Transition Jono Henry 1.2.840.114 [id number] Univers 00:00:00 00:00:00 of Care Cielo Mg 350.1.13.10 [place] [phone] [facility] [address] 2019-11-24 2019-11-24 Orders Doctor YANA 1.2.840.114 [id number] Univers 00:00:00 00:00:00 Only Unassigned, CARLOS 350.1.13.10 ity of [place] [facility] 4.2.7.2.686 Bernabe as [phone] [facility] [address] 2019-11-21 2019-11-21 Transition Jono Henry 1.2.840.114 [id number] Univers 00:00:00 00:00:00 of Care Cielo Mg 350.1.13.10 [place] [phone] [facility] [address] 2019-11-08 2019-11-20 [facility] Fam Craig 1.2.840.114 [id number] Univers 18:18:00 16:52:00 Encounter Argenis Barnett Carlos 350.1.13.1 0 ity of [facility] 4.2.7.2 .686 [place] [phone] [facility] [address] 2019-11-08 2019-11-20 [facility] [id number] Univers 18:18:00 16:52:00 AHMED ity of [facility] 2019-11-20 2019-11-20 [facility] 1.2.840.114 [id number] Univers 00:00:00 00:00:00 Wondiful [facility] 350.1.13.10 ity of [place] 4.2.7.2.686 Bernabe as Professio [phone] [address] 2019-11-19 2019-11-19 [facility] [id number] Univers 14:30:00 14:30:00 [facility] 2019-11-19 [facility] 1.2.840.114 [id number] Univers 00:00:00 00:00:00 Wondiful [facility] 350.1.13.10 ity of [place] 4.2.7.2.686 Bernabe as Professio [phone] [address] 2019-11-17 2019-11-17 [facility] [id number] Univers 08:00:00 08:00:00 SILVERIO ity [facility] 2019-11-14 2019-11-14 Outpatient R [facility] [id number] Univers 09:00:00 09:00:00 ity of [facility] 2019-11-10 2019-11-10 [facility] 1.2.840.114 [id number] Univers 00:00:00 00:00:00 Wondiful [facility] 350.1.13.10 ity of [place] 4.2.7.2.686 Bernabe as Professio [phone] [address] One 2019-11-08 2019-11-08 [facility] 1.2.840.114 [id number] Univers 00:00:00 00:00:00 Wondiful [facility] 350.1.13.10 ity of [place] 4.2.7.2.686 Bernabe as Professio [phone] [address] Office [address] One 2019-11-05 2019-11-05 Hospital Kia [facility] 1.2.840.114 [id number] Univers 07:42:01 23:59:00 Encounter [facility] 350.1.13.10 ity of [place] [phone] [address] ([facility]) 2019-11-05 2019-11-05 Outpatient R KIA [facility] [id number] Univers 00:00:00 00:00:00 SILVERIO ity of [facility] 2019-10-29 2019-10-29 Pre Visit Major [facility] 1.2.840.114 [id number] Univers 00:00:00 00:00:00 Outreach Wondiful A Health 350.1.13.10 ity of [place] 4.2.7.2.686 Bernabe as Professio [phone] [address] Office Building One 2019-10-29 2019-10-29 Pre Visit Major [facility] 1.2.840.114 [id number] Univers 00:00:00 00:00:00 Outreach Wondiful A Health 350.1.13.10 ity of [place] 4.2.7.2.686 Bernabe as Professio [phone] [address] Office Building One 2019-10-28 2019-10-28 Office Major [facility] 1.2.840.114 [id number] Univers 08:55:08 09:43:57 Visit Wondiful A Health 350.1.13.10 ity of [place] 4.2.7.2.686 Bernabe as Professio [phone] [address] Office Building [facility] 2019-10-28 2019-10-28 Outpatient R MAJOR [facility] [id number] Univers 09:30:00 09:30:00 WONDIFUL ity o f [facility] 2019-10-24 2019-10-24 Emergency Lukasz [facility] 1.2.643.008 [id number] Univers 19:34:00 23:51:00 Lubna S [place] 350.1.13.10 ity of [place] [phone] [facility] 084 [place] 2019-10-24 2019-10-24 Emergency X LUKASZ, [facility] ERT [id number] Univers 19:34:00 23:51:00 LUBNA ity of [facility] 2019-10-24 2019-10-24 Telephone [facility] 1.2.840.114 [id number] Univers 00:00:00 00:00:00 Wondiful A Health 350.1.13.10 ity of [place] 4.2.7.2.686 Bernabe as Professio [phone] [address] Office Building [facility] 2019-10-24 2019-10-24 Orders Doctor YANA 1.2.840.114 [id number] Univers 00:00:00 00:00:00 Only Unassigned, CARLOS 350.1.13.10 ity of [place] [facility] 4.2.7.2.686 Bernabe as [phone] [facility] 009 [place] 2019-10-21 2019-10-21 Telephone Mary Kay Adam 1.2.826.952 [id number] Univers 00:00:00 00:00:00 Silverio Carlos 350.1.13.10 it y of Hospital 4.2.7.2.686 Bernabe as [phone] [facility] 039 [place] 2019-10-09 2019-10-09 Telephone GLENNA Adam 1.2.840.114 [id number] Univers 00:00:00 00:00:00 Silverio Y HEALTH 350.1.13.10 i ty of CLINICS [place] [phone] [facility] 059 [place] 2019-10-08 2019-10-08 Telephone [facility] 1.2.840.114 [id number] Univers 00:00:00 00:00:00 Wondiful A Health 350.1.13.10 ity of [place] 4.2.7.2.686 Bernabe as Professio [phone] [address] Office [facility] 2019-10-08 2019-10-08 Ely [facility] 1.2.272.806 [id number] Univers 00:00:00 00:00:00 Silverio [place] 350.1.13.10 i ty of [place] Profess[place] [phone] [facility] 059 [facility] 2019-10-01 2019-10-01 Orders Doctor YANA 1.2.840.114 [id number] Univers 00:00:00 00:00:00 Only Unassigned, CARLOS 350.1.13.10 ity of [place] [facility] 4.2.7.2.686 Bernabe as [phone] [address] 2019-09-23 2019-09-23 Telephone [facility] 1.2.500.010 [id number] Univers 00:00:00 00:00:00 Silverio [place] 350.1.13.10 i ty of [place] Profess[place] [phone] [facility] 059 [facility] 2019-09-18 2019-09-18 Telephone [facility] 1.2.840.114 [id number] Univers 00:00:00 00:00:00 Wondiful A [place] 350.1.13.10 ity of [place] [phone] [facility] 044 [facility] 2019-09-17 2019-09-17 [facility] 1.2.279.388 [id number] Univers 00:00:00 00:00:00 Silverio [place] 350.1.13.10 i ty of [place] [phone] [place] 542459 [facility] 2019-09-16 2019-09-16 Office [facility] 1.2.840.114 [id number] Univers 10:18:05 12:06:59 Visit Silverio [place] 350.1.13.10 i ty of [place] 4.2.7.2.[place] [phone] [place] 542459 [facility] 2019-09-16 2019-09-16 [facility] [id number] Univers 10:40:00 10:40:00 SILVERIO ity of [facility] 2019-09-16 2019-09-16 Telephone [facility] 1.2.639.304 [id number] Univers 00:00:00 00:00:00 Dimitrizechariah [place] 350.1.13.10 ity of [place] [phone] [place] 542459 [facility] 2019-09-15 2019-09-15 Laboratory Pc, Adc Echo Room 1 - [facility] 1 .2.840.114 [id number] Univers 09:42:44 11:10:38 Only Kumar Sriram Palomo 350.1.13.10 ity of [place] Profess[place] [phone] [address] 2019-09-15 2019-09-15 Outpatient R [facility] [id number] Univers 10:00:00 10:00:00 ity of [facility] 2019-09-10 2019-09-10 Telephone [facility] 1.2.840.114 [id number] Univers 00:00:00 00:00:00 Wondiful A Dewey 350.1.13.10 ity of [place].2.[place] Profess[place] [phone] [address] 2019-09-08 2019-09-08 Office [facility] 1.2.840.114 [id number] Univers 13:10:22 13:44:08 Visit Sriram Valdezton 350.1.13.10 ity of [place].2.7.2.[place] Profess[place] [phone] [address] 2019-09-08 2019-09-08 [facility] [id number] Univers 13:20:00 13:20:00 SRIRAM fergusony o f [facility] 2019-08-25 2019-08-25 Refill [facility] 1.2.840.114 [id number] Univers 00:00:00 00:00:00 Sriram Health 350.1.13.10 i ty of [place] 4.2.7.2.686 Bernabe as Professio [phone] [address] Office [facility] 2019-08-18 2019-08-18 Telephone Kumar, [facility] 1.2.878.888 [id number] Univers 00:00:00 00:00:00 Sriram Palomo 350.1.13.10 ity of [place] Profess[place] [phone] Ms dicga nal 059 [facility] 2019-08-15 2019-08-15 Nurse Visit, [facility] Nurse [facility] 1.2.840.1 14 [id number] Univers 09:12:28 21:57:47 Visit Dago Gross 350.1.13. 10 ity of [place].2.[place] [phone] Ms dical nal 059 [facility] 2019-08-15 2019-08-15 Spinning Operator 2, [facility] Lab [facility] 1.2.840.114 [id number] Univers 10:09:35 10:24:35 Visit Dago Gross 350.1.13. 10 ity of [place].2.7.2.[place] [phone] Ms dical nal 353 [facility] 2019-08-15 2019-08-15 Outpatient R [facility] [id number] Univers 09:30:00 09:30:00 ity of [facility] 2019-08-13 2019-08-13 Office [facility] 1.2.840.114 [id number] Univers 16:05:34 16:57:20 Visit Alexey Palomo 350.1.13.10 i ty of [place].2.7.2.[place] Profess[place] [phone] Ms dical nal 220 [facility] 2019-08-13 2019-08-13 Outpatient [facility] [id number] Univers 16:30:00 16:30:00 ALEXEY ity [facility] 2019-08-13 2019-08-13 Orders Doctor MILLAN 1.2.840.114 [id number] Univers 00:00:00 00:00:00 Only Unassigned, CARLOS 350.1.13.10 ity of [place] [facility] 4.2.7.2.686 Bernabe as [phone] [address] 2019-08-13 2019-08-13 Refill [facility] 1.2.840.114 [id number] Univers 00:00:00 00:00:00 Sriram Valdez[place] 350.1.13.10 ity of [place] Profess[place] [phone] [address] 2019-08-07 2019-08-07 Refill [facility] 1.2.840.114 [id number] Univers 00:00:00 00:00:00 Wondiful A Health 350.1.13.10 ity of [place] 4.2.7.2.686 Bernabe as Professio [phone] [address] 2019-08-04 2019-08-04 Spinning Operator Pc, Adc Vascular Room 1 - [facility] 1.2.840.114 [id number] Univers 10:43:00 11:05:18 Visit Sriram Heath 350.1.13.10 ity of [place].2.[place] [phone] [address] 2019-08-04 2019-08-04 Outpatient R [facility] [id number] Univers 11:00:00 11:00:00 ity of [facility] 2019-08-04 2019-08-04 Telephone [facility] 1.2.278.474 [id number] Univers 00:00:00 00:00:00 Sriram Palomo 350.1.13.10 it[place] of [place].2.[place] [phone] [address] 2019-08-03 2019-08-03 Refisra GonsalvesPRES[facility] 1.2.840.114 [id number] Univers 00:00:00 00:00:00 Wondiful A Health 350.1.13.10 ity of [place] 4.2.7.2.686 Bernabe as Professio [phone] [address] 2019-07-30 2019-07-30 Office [facility] 1.2.840.114 [id number] Univers 13:54:46 14:40:55 Visit Guillelisazechariah Dewey 350.1.13.10 ity of [place] 4.2.7.2.[place] [phone] [place] 542459 [facility] 2019-07-30 2019-07-30 Outpatient [facility] [id number] Univers 14:20:00 14:20:00 SRIRAM ity o f [facility] 2019-07-30 2019-07-30 Orders Doctor YANA 1.2.840.114 [id number] Univers 00:00:00 00:00:00 Only Unassigned, CARLOS 350.1.13.10 ity of [place] [facility] 4.2.7.2.686 Bernabe as [phone] [address] 2019-07-17 2019-07-17 Orders Doctor YANA 1.2.840.114 [id number] Univers 00:00:00 00:00:00 Only Unassigned, CARLOS 350.1.13.10 ity of [place] [facility] 4.2.7.2.686 Bernabe as [phone] [address] 2019-07-16 2019-07-16 Telephone [facility] 1.2.840.114 [id number] Univers 00:00:00 00:00:00 Wondiful A Health 350.1.13.10 ity of [place] 4.2.7.2.686 Bernabe as Professio [phone] [facility] 044 [employer] One 2019-07-01 2019-07-01 Telephone [facility] 1.2.722.169 [id number] Univers 00:00:00 00:00:00 Guillelisazechariah Valdez[place] 350.1.13.10 ity of [place].7.2.[place] Profess[place] [phone] [facility] 059 [facility] 2019-06-30 2019-06-30 Spinning Operator [place], Adc Lab Main [facility] 1.2.8 40.114 [id number] Univers 07:52:57 08:07:57 Visit Kumar Sriram Palomo 350.1.13.10 ity of [place].2.[place] [phone] [facility] 353 [facility] 2019-06-30 2019-06-30 Outpatient R KUMAR, [facility] [id number] Univers 08:00:00 08:00:00 SRIRAM de oliveira o f [facility] 2019-06-25 2019-06-25 Outpatient R KUMAR, [facility] [id number] Univers 09:40:00 09:40:00 SRIRAM fergusony o [facility] 2019-06-25 2019-06-25 Telemedici KumarPRES[facility] 1.2.840.114 [id number] Univers 08:37:50 08:57:50 ne Visit Sriram [place] 350.1.13.10 ity of [place].7.2.[place] Profess[place] [phone] [facility] 059 [facility] 2019-05-28 2019-05-28 Refisra [facility]PRES[facility] 1..840.114 [id number] Univers 00:00:00 00:00:00 Wondiful A Health 350.1.13.10 ity of [place] 4.2.7.2.686 Bernabe as Professio [phone] [facility] 044 [facility] 2019-05-25 2019-05-25 [facility] 1..840.114 [id number] Univers 00:00:00 00:00:00 Wondiful A Health 350.1.13.10 ity of [place] 4.2.7.2.686 Bernabe as Professio [phone] [address] 2019-05-21 2019-05-21 Outpatient R ALEXUS RAMOS [facility] [id number] Univers 10:00:00 10:00:00 ALEXUS RAMOS ity [facility] 2019-05-20 2019-05-20 Telemgisell HeathPRESBYTERIAN MED[facility] 1..840.114 [id number] Univers 13:50:59 14:10:59 ne [facility] [place] 350.1.13.10 [place].2.[place] Profess[place] [phone] Ms dical nal 059 [facility] 2019-05-20 2019-05-20 Outpatient R KUMAR, [facility] [id number] Univers 13:40:00 13:40:00 QIALISAZECHARIAH ity o f [facility] 2019-05-20 2019-05-20 Telephone [facility] 1.2.840.114 [id number] Univers 00:00:00 00:00:00 Wondiful A Health 350.1.13.10 ity of [place] 4.2.7.2.686 Bernabe as Professio [phone] Ms dical nal 044 [place] Office [facility] 2019-05-13 2019-05-13 Telephone [facility]PRES[facility] 1.2.079.423 [id number] Univers 00:00:00 00:00:00 Qiangzechariah [place] 350.1.13.10 ity of [place].2.[place] [phone] Ms dical nal 059 [facility] 2019-05-09 2019-05-09 Refill LajasPRES[facility] 1.2.840.114 [id number] Univers 00:00:00 00:00:00 Wondiful A Health 350.1.13.10 ity of [place] 4.2.7.2.686 Bernabe as Professio [phone] Ms dical nal 044 [place] Office [facility] 2019-05-02 2019-05-02 Telephone [facility] 1.2.840.114 [id number] Univers 00:00:00 00:00:00 Wondiful A Health 350.1.13.10 ity of [place] 4.2.7.2.686 Bernabe as Professio [phone] Ms dical nal 044 [place] Office [facility] 2019-05-02 2019-05-02 Telephone CastlePRES[facility]TER[facility] 1.2.329.720 [id number] Univers 00:00:00 00:00:00 Wentong [place] 350.1.13.10 i ty of [place]2.7.2.[place] [phone] Ms dical nal 220 [facility] 2019-04-30 2019-04-30 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 Luís Coleman Lab Main [facility] 1.2.8 40.114 [id number] Univers 16:15:01 16:30:01 Visit Alexey Castle 350.1.13.10 ity of [place].2.[place] Profess[place] [phone] Ms dical sathya 353 [facility] 2019-04-09 2019-04-09 Office [facility] 1.2.840.114 [id number] Univers 15:08:31 15:58:05 Visit Alexey Dewey 350.1.13.10 i ty of [place] 4.2.7.2.[place] [phone] Ms dical nal 220 [facility] 2019-04-09 2019-04-09 Orders Doctor YANA 1.2.840.114 [id number] Univers 00:00:00 00:00:00 Only Unassigned, CARLOS 350.1.13.10 ity of [place] [facility] 4.2.7.2.686 Bernabe as [phone] [address] 2019-03-14 2019-03-30 Nurse Visit, [facility] Nurse [facility] 1.2.840.1 14 [id number] Univers 08:39:08 18:06:53 Visit Dago Gross 350.1.13. 10 ity of [place].2.7.2.[place] [phone] [facility]59 [facility] 2019-03-28 2019-03-28 Telephone Major [facility] 1.2.840.114 [id number] Univers 00:00:00 00:00:00 Wondiful A Health 350.1.13.10 ity of [place] 4.2.7.2.686 Bernabe as Professio [phone] [facility] 044 [facility] 2019-03-24 2019-03-24 Telephone Major [facility] 1.2.840.114 [id number] Univers 00:00:00 00:00:00 Wondiful A Health 350.1.13.10 ity of [place] 4.2.7.2.686 Bernabe as Professio [phone] [facility] 044 [facility] 2019-03-14 2019-03-14 Outpatient R GINNY [facility] [id number] Univers 09:15:00 09:37:46 SENDIL ity of [facility] 2019-03-14 2019-03-14 Orders Doctor YANA 1.2.840.114 [id number] Univers 00:00:00 00:00:00 Only Unassigned, CARLOS 350.1.13.10 ity of [place] [facility] 4.2.7.2.686 Bernabe as [phone] [address] 2019-03-06 2019-03-06 Telephone [facility] 1.2.840.114 [id number] Univers 00:00:00 00:00:00 Wondiful A Health 350.1.13.10 ity of [place] 4.2.7.2.686 Bernabe as Professio [phone] [place] [address] Branch Office Building One 2019-01-27 2019-01-27 Outpatient R KUMAR, [facility] [id number] Univers 14:20:00 14:44:45 SRIRAM fergusony o f [facility] 2019-01-19 2019-01-19 Emergency X MARIO, [facility] ERT [id number] Univers 10:06:29 15:10:00 EVAN de oliveira [facility] 2019-01-06 2019-01-06 [facility] [id number] Univers 15:00:00 15:00:00 CLARE de oliveira o f [facility] 2018-12-11 2018-12-11 Outpatient [facility] [id number] Univers 08:45:00 08:45:00 EKATERINA de oliveira [facility] 2018-11-01 2018-11-01 Telephone WillianPRES[facility] 1.2.840.114 [id number] Univers 00:00:00 00:00:00 Wissam HEALTH 350.1.13.10 it y of [facility] 4.2.7.2.686 [facility] [phone] [facility] Primary & 059 Branch Specialty Care 2018-10-31 2018-10-31 Telephone [facility] 1.2.840.114 [id number] Univers 00:00:00 00:00:00 Wondiful A Health 350.1.13.10 ity of [place] 4.2.7.2.686 Bernabe as Professio [phone] [place] [address] Branch Office Building One 2018-10-30 2018-10-30 Telephone SullivanPRES[facility] 1.2.186.973 [id number] Univers 00:00:00 00:00:00 Madeleine Rica HEALTH 350.1.13.10 ity of [place] 4.2.7.2.686 [facility] s [facility] [phone] [facility] Primary & 059 [facility] 2018-10-30 2018-10-30 Telephone [facility] 1.2.840.114 [id number] Univers 00:00:00 00:00:00 Wondiful A Health 350.1.13.10 ity of [place] 4.2.7.2.686 Bernabe as Professio [phone] Ms dical nal 044 [place] Office Building One 2018-10-29 2018-10-29 Office Cookie [facility] 1.2.840.114 [id number] Univers 13:11:56 13:52:23 Visit Emily Health 350.1.13.10 i ty of [place] 4.2.7.2.686 Bernabe as Professio [phone] Ms dical nal 044 [place] Office Building One 2018-10-28 2018-10-29 Office Fac, Adc Heart Failure Cardio [facility] 1.2.840.114 [id number] Univers 15:47:43 12:03:16 Visit Edgar Cortés [place] 350.1 .13.10 ity of [place] 4.2.7.2.686 [facility] Professio [phone] Ms dical nal 059 [facility] 2018-10-28 2018-10-28 Hospital Nate [facility] 1.2.840.114 [id number] Univers 16:46:06 23:59:00 Encounter Madeleine Palomo 350.1.13.10 ity of [place] 4.2.7.2.686 [facility] [place] [phone] [facility] 807 [place] 2018-10-28 2018-10-28 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, 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 Lab [facility] 1.2.840.114 [id number] Univers 16:41:14 16:56:14 Visit Madeleine Sullivan 350.1.13.10 ity of [place] 4[place]2.7.2.686 [place] [phone] [facility] 353 Branch 2018-10-28 2018-10-28 Orders Doctor YANA 1.2.840.114 [id number] Univers 00:00:00 00:00:00 Only Unassigned, CARLOS 350.1.13.10 ity of [place] [facility] 4.2.7.2.686 Bernabe as [phone] [facility] 009 Branch 2018-10-24 2018-10-24 Cali Dorsey [facility] 1.2.840.114 [id number] Univers 00:00:00 00:00:00 Wissam HEALTH 350.1.13.10 it y of [place]2.7.2.686 [place] [phone] [facility] Primary & [facility] Branch Specialty Care 2018-10-14 2018-10-14 Refill Freddy, [facility] 1.2.840.114 [id number] Univers 00:00:00 00:00:00 Min [place] 350.1.13.10 i ty of [place].7.2.[place] [phone] [address] Building 2018-10-01 2018-10-01 Orders Doctor YANA 1.2.840.114 [id number] Univers 00:00:00 00:00:00 Only Unassigned, CARLOS 350.1.13.10 ity of [place] [facility] 4.2.7.2.686 Bernabe as [phone] [facility] 009 Branch 2018-09-26 2018-09-26 Spinning Operator Lab, [facility] Fam Pob I [facility] 1.2. 840.114 [id number] Univers 13:45:07 15:25:16 Visit Major [facility] 350.1.13.1 0 ity of [place] 4.2.7.2.686 Bernabe as Professio [phone] [address] Office Building One 2018-09-26 2018-09-26 Telephone Fac, [facility] 1.2.840.114 [id number] Univers 00:00:00 00:00:00 Heart HEALTH 350.1.13.10 it y of [place] 4.2.7.2.686 [place] [phone] [facility] Primary & [facility] Branch Specialty Care 2018-09-10 2018-09-10 Office Major [facility] 1.2.840.114 [id number] Univers 12:36:16 13:37:40 Visit Josianeful A Health 350.1.13.10 ity of [place] 4.2.7.2.686 Bernabe as Professio [phone] [address] Office Building One 2018-09-02 2018-09-02 Orders Doctor YANA 1.2.840.114 [id number] Univers 00:00:00 00:00:00 Only Unassigned, CARLOS 350.1.13.10 ity of [place] [facility] 4.2.7.2.686 Bernabe as [phone] [address] Results Test Description Test Time Test Comments Results Result Comments Source POCT GLUCOSE (AUTOMATED) 2022-02-19 18:34:13 Test Item Value Reference Range Interpretation Comme nts POCT GLU (test code = 5981975573) 354 mg/dL 70-110 H Lab Interpretation (test code = 38443-4) [facility]-19 14:51:34 Test Item Value Reference Range Interpretation Comments POCT GLU (test code = 4886536357) 158 mg/dL 70-110 H Lab Interpretation (test code = Abnormal 02749-9) [facility]2022-02-19 07:09:11 Test Item Value Reference Range Interpretation Comments POCT GLU (test code = 8258255019) 109 mg/dL 70-110 Lab Interpretation (test code = Normal 22119-1) [facility] 06:15:00 Test Item Value Reference Range Interpretation Comments POCT GLU (test code = [id number]) 56 mg/dL 70-110 L Lab Interpretation (test code = Abnormal 68310-2) [facility] 03:41:03 Test Item Value Reference Range Interpretation Comments POCT GLU (test code = 2413534418) 197 mg/dL 70-110 H Lab Interpretation (test code = Abnormal 48828-5) [facility] 23:17:16 Test Item Value Reference Range Interpretation Comments POCT GLU (test code = 3863832951) 240 mg/dL 70-110 H Lab Interpretation (test code = Abnormal 53931-2) [facility]24[facility]23 Test Item Value Reference Range Interpretation Comments POCT GLU (test code = [id number]) 274 mg/dL 70-110 H Lab Interpretation (test code = Abnormal 03121-1) [facility] 18:24:18 Test Item Value Reference Range Interpretation Comments POCT GLU (test code = 2535852038) 92 mg/dL 70-110 Lab Interpretation (test code = Normal 38369-2) [facility] (Total Cholesterol, Triglycerides, HDL) - [id number] 12:27:34 Test Item Value Reference Range Interpretation Comments CHOL (test code = 146 mg/dL 120-200 [id number]) HDL (test code = 54 mg/dL See_Comment [Automated message] [id number]) The system [employer] generated this result transmit luis miguel reference range : >=50. The refer ence range was not u sed to interpret th is result as normal/abnormal . HDLC RATIO (test code = See_Comment [Au tomated message] 7154384476) The system [employer] generated this result transmit luis miguel reference range : <=4.5. The refe rence range was not u sed to interpret th is result as normal/abnormal . TRIG (test code = 113 mg/dL 30-170 0279809601) LDL CHOL (test code = 69 mg/dL See_Comment [Auto mated message] 61374-4) The system [employer] generated this result transmit luis miguel reference range : <=160. The refe rence range was not u sed to interpret th is result as normal/abnormal . VLDL (test code = 23 mg/dL 5-60 4396639449) Lab Interpretation (test Normal code = 05276-9) [id number] 12:27:34 Test Item Value Reference Range Interpretation Comments NT-proBNP (test code 32540 pg/mL See_Comment H [Autom ated = 1934382425) message] The system which generated this result transmitted reference range : <=450. The reference range was not used to interpret this result as normal/abnormal . SEN (test code = SEN) Biotin has been reported to cause a negative bias, interpret results relative to patient's use of biotin. Lab Interpretation Abnormal (test code = 81026-9) [facility] (NA, K, CL, CO2, GLUCOSE, BUN, CREATININE, CA)2022-02-18 12:27:14 Test Item Value Reference Range Interpretation Comments NA (test code = 137 mmol/L 135-145 4594332275) K (test code = 4.0 mmol/L 3.5-5.0 3223966114) CL (test code = 104 mmol/L 98-108 1916847374) CO2 TOTAL (test code = 25 mmol/L 23-31 9914134472) AGAP (test code = 2-16 7023939421) BUN (test code = 62 mg/dL 7-23 H 1146143726) GLUCOSE (test code = 90 mg/dL 70-110 4078515021) CREATININE (test code = 2.02 mg/dL 0.50-1.04 H 4838612342) CALCIUM (test code = 8.3 mg/dL 8.6-10.6 L 8763204318) eGFR (test code = mL/min/1.73m2 1337894780) SEN (test code = SEN) Association of [...] tests). Lab Interpretation Abnormal (test code = 44518-8) [facility] WITH [id number] 11:30:43 Test Item Value Reference Range Interpretation [...] RDW-SD (test code = 46.4 fL 39.0-49.9 43296-6) RDW-CV (test code = 13.2 % 12.0-15.5 788-0) PLT (test code = See_Comment [Automated 777-3) message] The sy stem which generated this result transmitted reference range : 166 - 358 10*3/ ?L. The reference r beltran was not used to interpret this result as normal/abnormal . MPV (test code = 13.0 fL 9.5-12.9 H 93696-5) NRBC/100 WBC (test See_Comment [Automat ed code = 6342240009) message] The system which generated this result transmitted reference range : 0.0 - 10.0 /100 WBCs. The refer ence range was not u sed to interpret th is result as normal/abnormal . NRBC x10^3 (test code See_Comment [Auto mated = 2242901510) message] The s ystem which generated this result transmitted reference range : 10*3/?L. The reference range was not used to interpret this result as normal/abnormal . GRAN MAT (NEUT) % 58.4 % (test code = 770-8) IMM GRAN % (test code 0.30 % = 7052217326) LYMPH % (test code = 27.5 % 736-9) MONO % (test code = 9.3 % 5905-5) EOS % (test code = 4.2 % 713-8) BASO % (test code = 0.3 % 706-2) GRAN MAT x10^3(ANC) 3.71 10*3/uL 1.88-7.09 (test code = 3899166472) IMM GRAN x10^3 (test 0.00-0.06 code = 6373727541) LYMPH x10^3 (test code 1.75 10*3/uL 1.32-3.29 = 731-0) MONO x10^3 (test code 0.59 10*3/uL 0.33-0.92 = 742-7) EOS x10^3 (test code = 0.27 10*3/uL 0.03-0.39 711-2) BASO x10^3 (test code 0.01-0.07 = 704-7) Lab Interpretation Abnormal (test code = 49155-7) [facility] GLUCOSE (AUTOMATED)2022-02-18 02:39:08 Test Item Value Reference Range Interpretation Comments POCT GLU (test code = 2480455655) 196 mg/dL 70-110 H Lab Interpretation (test code = Abnormal 01174-8) [facility] GLUCOSE (AUTOMATED)2022-02-17 23:16:54 Test Item Value Reference Range Interpretation Comments POCT GLU (test code = 7549277874) 140 mg/dL 70-110 H Lab Interpretation (test code = Abnormal 75412-2) [facility] 19:44:53 Test Item Value Reference Range Interpretation Comments Height (test code = in 0306332654) Weight (test code = lbs 6717890902) Systolic BP (test code = mmHg 2155862734) Diastolic BP (test code mmHg = 5830941945) Heart Rate (test code = bpm 3630964956) BSA (test code = 1.81 m2 2558411636) Ao root diam (test code 3.30 cm = 3302489950) Aortic root (test code = 3.3 cm 5017669066) Ao root annulus (test 3.3 cm code = 0071634552) LVOT diameter (test code 1.89 cm = 8916055818) LVOT area (test code = 2.80 cm2 2559600440) LAV(MOD-sp4) (test code 52.90 mL = 9214668101) E wave decelartion time 0.17 s (test code = 1590679729) MV stenosis pressure 1/2 51.3 ms time (test code = 7467092635) MV Peak E Mily (test code 95.2 cm/s = 0329833807) MV Peak A Mily (test code 61.8 cm/s = 5981794127) E/A ratio (test code = ratio 9696233973) MV Prop V (test code = 23.30 cm/s 2063752583) MV E/e' septal (test 7.8 cm/s code = 4046511843) TR Peak Mily (test code = 310.8 cm/s 7599112639) Triscuspid Valve mmHg Regurgitation Peak Gradient (test code = 8953798768) Tapse (test code = 1.99 cm 0941066014) LVOT stroke volume (test 40.40 cm3 code = 3048062898) LVOT peak mily (test code 67.8 cm/s = 5348016141) LVOT mn grad (test code mmHg = 2371932223) AV LVOT peak gradient mmHg (test code = 5818506953) LVOT peak VTI (test code 14.4 cm = 0342290903) LV V1 mean (test code = 45.30 cm/s 5763740175) MR max PG (test code = 65.40 mm[Hg] 9928507283) MR max mily (test code = 404.30 cm/s 4019812354) Mr max mily (test code = 404.3 m/s 2934519713) LVIDD (test code = 6.30 cm 8721824345) Left Ventricular End 202.4 mL Diastolic Volume by Teichholz Method (test code = 9800249) IVS (test code = 0.94 cm 8597734866) Interventricular Septum 0.94 cm Diastolic Thickness by 2D (test code = 8594046) LVPWD (test code = 0.94 cm 2626650232) PW (test code = 0.94 cm 0.6-1.4 1143424571) EF(Teich) (test code = 19.10 % 2041666914) LVIDS (test code = 5.80 cm 1762807819) Left Ventricular End 163.8 mL Systolic Volume by Teichholz Method (test code = 1948338) FS (test code = 9 % 8277745040) EF - 2D (test code = 19.10 % 37036423) LA size (test code = 3.5 cm 9361054809) Radiology Study observation (narrative) (test code = 85149-9) SEN (test code = SEN) Table formatting [...] mL of Lumason ultrasound enhancing agent used. [facility] GLUCOSE (AUTOMATED)2022-02-17 18:19:03 Test Item Value Reference Range Interpretation Comments POCT GLU (test code = 1817327590) 160 mg/dL 70-110 H Lab Interpretation (test code = Abnormal 05613-6) [facility] GLUCOSE (AUTOMATED)2022-02-17 14:06:55 Test Item Value Reference Range Interpretation Comments POCT GLU (test code = 5915157414) 101 mg/dL 70-110 Lab Interpretation (test code = Normal 77943-0) [facility] GLUCOSE (AUTOMATED)2022-02-17 03:58:48 Test Item Value Reference Range Interpretation Comments POCT GLU (test code = 3140676052) 278 mg/dL 70-110 H Lab Interpretation (test code = Abnormal 77910-7) [facility] GLUCOSE (AUTOMATED)2022-02-17 03:21:46 Test Item Value Reference Range Interpretation Comments POCT GLU (test code = 1735360678) 279 mg/dL 70-110 H Lab Interpretation (test code = Abnormal 20811-7) [facility]A1C[facility]2022-02-17 01:58:04 Test Item Value Reference Range Interpretation Comments HGB A1C (test code = 10.0 % 4.0-5.7 H 4548-4) SEN (test code = ESN) Reference RangesNormal: <5.7%Prediabetes: 5.7 - 6.4%Diabetes: > 6.5% Lab Interpretation (test Abnormal code = 36292-3) [facility] [id number] 17:30:57 Test Item Value Reference Interpretation Comments Range TROPONIN I (test 0.028 ng/mL See_Comment [Automated code = 8992212523) message] The system which generated this result [...] biotin. Lab Interpretation Normal (test code = 74380-4) [facility] [id number] 17:27:54 Test Item Value Reference Range Interpretation Comments NT-proBNP (test code 69731 pg/mL See_Comment H [Autom ated = 0740658741) message] The system which generated this result transmitted reference range : <=450. The reference range was not used to interpret this result as normal/abnormal . SEN (test code = SEN) Biotin has been reported to cause a negative bias, interpret results relative to patient's use of biotin. Lab Interpretation Abnormal (test code = 44206-8) [facility] (NA, K, CL, CO2, GLUCOSE, BUN, CREATININE, CA)2022-02-16 17:19:15 Test Item Value Reference Range Interpretation Comments NA (test code = 135 mmol/L 135-145 3062105094) K (test code = 4.7 mmol/L 3.5-5.0 0071263062) CL (test code = 104 mmol/L 98-108 5688902444) CO2 TOTAL (test code = 23 mmol/L 23-31 7873289434) AGAP (test code = 2-16 6023689154) BUN (test code = 58 mg/dL 7-23 H 9952941092) GLUCOSE (test code = 260 mg/dL 70-110 H 9595696232) CREATININE (test code = 1.78 mg/dL 0.50-1.04 H 9361145107) CALCIUM (test code = 8.2 mg/dL 8.6-10.6 L 4718545791) eGFR (test code = mL/min/1.73m2 6572773228) SEN (test code = SEN) Association of [...] tests). Lab Interpretation Abnormal (test code = 37476-2) [facility]35729[facility] (ALB,T.PRO,BILI T,BU/BC,ALT,AST,ALK PHOS)2022-02-16 17:19:15 Test Item Value Reference Range Interpretation Comments TOTAL BILI (test code = 3547114031) 0.4 mg/dL 0.1-1.1 BILI UNCON (test code = 4310517477) 0.3 mg/dL 0.1-1.1 BILI CONJ (test code = 1107080801) 0.0 mg/dL 0.0-0.3 T PROTEIN (test code = 7023264657) 6.8 g/dL 6.3-8.2 ALBUMIN (test code = 5128291915) 3.8 g/dL 3.5-5.0 ALK PHOS (test code = 8543458565) 146 U/L 34-122 H ALTv (test code = 1742-6) 29 U/L 5-35 AST(SGOT) (test code = 7953264610) 28 U/L 13-40 Lab Interpretation (test code = Abnormal 04848-4) [facility] 17:19:15 Test Item Value Reference Range Interpretation Comments LIPASE (test code = 5405843938) 46 U/L 0-220 Lab Interpretation (test code = Normal 45541-6) [facility] WITH [id number] 17:12:53 Test Item Value Reference Range Interpretation Comments WBC (test code = See_Comment [Automated 6690-2) message] The sy stem which generated this result transmitted reference range : 4.30 - 11.10 10*3/?L. The reference range was not used to interpret this result as normal/abnormal . RBC (test code = See_Comment L [Automated 189-8) message] The sy stem which generated this [...] RDW-SD (test code = 47.8 fL 39.0-49.9 95090-4) RDW-CV (test code = 13.5 % 12.0-15.5 788-0) PLT (test code = See_Comment [Automated 777-3) message] The sy stem which generated this result transmitted reference range : 166 - 358 10*3/ ?L. The reference r beltran was not used to interpret this result as normal/abnormal . MPV (test code = 12.9 fL 9.5-12.9 21748-5) NRBC/100 WBC (test See_Comment [Automat ed code = 3752130616) message] The system which generated this result transmitted reference range : 0.0 - 10.0 /100 WBCs. The refer ence range was not u sed to interpret th is result as normal/abnormal . NRBC x10^3 (test code See_Comment [Auto mated = 4009984354) message] The s ystem which generated this result transmitted reference range : 10*3/?L. The reference range was not used to interpret this result as normal/abnormal . GRAN MAT (NEUT) % 75.4 % (test code = 770-8) IMM GRAN % (test code 0.20 % = 8637544463) LYMPH % (test code = 14.9 % 736-9) MONO % (test code = 7.7 % 5905-5) EOS % (test code = 1.6 % 713-8) BASO % (test code = 0.2 % 706-2) GRAN MAT x10^3(ANC) 6.77 10*3/uL 1.88-7.09 (test code = 3281206499) IMM GRAN x10^3 (test 0.00-0.06 code = 8831601290) LYMPH x10^3 (test code 1.34 10*3/uL 1.32-3.29 = 731-0) MONO x10^3 (test code 0.69 10*3/uL 0.33-0.92 = 742-7) EOS x10^3 (test code = 0.14 10*3/uL 0.03-0.39 711-2) BASO x10^3 (test code 0.01-0.07 = 704-7) Lab Interpretation Abnormal (test code = 92232-4) [facility] HEMOGLOBIN A1C [id number] 15:15:00 Test Item Value Reference Range Interpretation Comments POCT HBA1C (test code = 4548-4) 7.6 % 4-6 A Lab Interpretation (test code = Abnormal 52562-8) [facility] HEMOGLOBIN A1C [id number] 15:15:00 Test Item Value Reference Range Interpretation Comments POCT HBA1C (test code = 4548-4) 7.6 % 4-6 A Lab Interpretation (test code = Abnormal 77892-2) [facility]
[2022-07-26] MEDS ORDERED: ASPIRIN 81 MG CHEWABLE TABLET ONE (11:24)
[2022-07-26 11:46] LABS: Absolute Lymphocytes (CBC) 1.3 K/uL (0.7-4.9); Hematocrit 33.8 % (36.0-45.0); Lymphocytes % 17.7 % (15.3-44.8); MCV 95.1 fL (80-100); MPV 10.7 fL (7.6-11.3); RBC Red Blood Cell Count 3.55 M/uL (3.86-4.86)
[2022-07-26] MEDS ORDERED: DIAZEPAM 5 MG TABLET ONE (11:53)
[2022-07-26] MEDS ORDERED: HYDROCODONE/APAP 5/325 MG TAB ONE ×2 (11:54→19:36)
[2022-07-26 12:05] LABS: Magnesium 2.2 mg/dL (1.6-2.4); Potassium 3.7 mEq/L (3.5-5.1); Troponin High Sensitivity 17.8 pg/mL (<58.9)
--- NOTE | 2022-07-26 12:17 | RAD REPORT ---
EXAM DESCRIPTION: RAD - Chest Single View - 07/26/2022 12:04 pm CLINICAL HISTORY: CHEST PAIN Chest pain. COMPARISON: <Comparisons> FINDINGS: Portable technique limits examination quality. Mild interstitial pulmonary edema. The heart is mildly enlarged with multilead pacer/defibrillator de vice. No displaced fractures. IMPRESSION: Mild CHF versus volume overload suspected.
--- NOTE | 2022-07-26 13:45 | RAD REPORT ---
EXAM DESCRIPTION: US - CP - 07/26/2022 1:09 pm CLINICAL HISTORY: left sided neck pain COMPARISON: Carotid Artery Bilateral dated 06/16/2022 TECHNIQUE: Real-time sonographic grayscale, color duplex, and spectral wave Doppler evaluation of [facility] carotid systems was performed. FINDINGS: Normal high resistance waveforms are noted in both external carotid arteries. The common c arotid arteries and internal carotid arteries show normal low resistance waveforms. Mild calcified smooth plaque formation is seen at the right carotid bulb. No significant plaque forma tion along the left carotid arteries. Peak systolic velocity less than 125 cm/ sec bilaterally. ICA/ CCA peak systolic ratios less than 2.0 bilaterally. Antegrade flow seen in both vertebral arteries. Incidentally noted calcified right thyroid 1.9 centimeter nodule. IMPRESSION: Mild atherosclerotic changes at the right carotid bulb, with less than 50% stenosis. No evidence of a hemodynamically significant stenosis along the left carotid artery. Bilateral verteb ral arteries are patent. Incidentally noted calcified 1.9 centimeter right thyroid lobe nodule, not well evaluated. Evaluation of carotid artery stenosis, if any, is reported based on consensus recommendations of the Society of Radiologists in Ultrasound (Hollis et al., Radiology, 2003)
--- NOTE | 2022-07-26 15:38 | EDPHYS ---
Physician Documentation [facility] Name: Teena Simpson Age: 77 yrs Sex: Female : 1945 Arrival Date: 07/26/2022 Time: 10:55 Bed 23 Private MD: ED Physician Tristan Tracy HPI: 07/26 11:14 This 77 yrs old Female presents to ER via Wheelchair with complaints of Neck ms3 Pain, >24Hrs Old, Chest Pain > 30 y/o, Nausea. 11:14 77-year-old female with past medical history of hyperlipidemia, myocardial infarction, ms3 neuropathy, epilepsy, chronic kidney disease, hypertension, diabetes presents for left-sided neck pain that is been ongoing for 10 days. Patient states the pain is a 10/10. Patient denies alleviating or inciting factors. Patient also states she started having palpitations at 10:30 AM. Patient rates her discomfort from the palpitations a 7/10. Patient endorses generalized weakness, nausea. Patient denies vomiting. Historical: - Allergies: 11:08 Augmentin; hb 11:08 Cipro; hb 11:08 Keppra; hb - Home Meds: 11:08 atorvastatin 40 mg Oral tab 1 tab every day at bedtime [Active]; Eliquis 5 mg Oral hb tablet 1 tab 2 times per day [Active]; furosemide 40 mg Oral tab 1 tab daily [Active]; metoprolol succinate 50 mg Oral Tablet, Extended Release 24 hr 1 tab 2 times per day [Active]; Novolin N NPH U-100 Insulin 100 unit/mL Sub-Q tab 20 units every evening [Active]; Phenytoin 100mg Oral 1 tab 2 times per day [Active]; - PMHx: 11:08 High Cholesterol; Myocardial infarction; neuropathy; Seizures; Kidney failure stage 4; hb Diabetes - IDDM; Hypertension; Atrial Fib; CHF; Anxiety; Low HR; - PSHx: 11:08 Appendectomy; Hemorrhoidectomy; Pacemaker-Defib; hb - Immunization history:: Adult Immunizations up to date. - Social history:: Smoking status: Patient denies any tobacco usage or history of. ROS: 11:14 Constitutional: Negative for fever, and chills. Neck: Negative for injury, pain, and ms3 swelling, Cardiovascular: Negative for chest pain, and palpitations. 11:14 Respiratory: Negative for shortness of breath, cough, wheezing, and pleuritic chest pain, Abdomen/GI: Negative for abdominal pain, nausea, vomiting, diarrhea, and constipation, MS/Extremity: Negative for injury and deformity, Skin: Negative for injury, rash, and discoloration. 11:14 Neck: Positive for pain at rest. 11:14 All other systems are negative. Exam: 11:14 Constitutional: This is a well developed, well nourished patient who is awake, alert, ms3 and in no acute distress. Head/Face: Normocephalic, atraumatic. Neck: Trachea midline, no cervical lymphadenopathy. Supple, full range of motion without nuchal rigidity, or vertebral point tenderness. No Meningismus. Chest/axilla: Normal chest wall appearance and motion. Nontender with no deformity. Respiratory: Lungs have equal breath sounds bilaterally, clear to auscultation and percussion. No rales, rhonchi or wheezes noted. No increased work of breathing, no retractions or nasal flaring. Abdomen/GI: Soft, non-tender, with normal bowel sounds. No distension or tympany. No guarding or rebound. No evidence of tenderness throughout. Skin: Warm, dry with normal turgor. Normal color with no rashes, no lesions, and no evidence of cellulitis. MS/ Extremity: Pulses equal, no cyanosis. Neurovascular intact. Full, normal range of motion. 11:14 Cardiovascular: Rate: tachycardic, Rhythm: regular, Pulses: no pulse deficits are appreciated, Heart sounds: normal, normal S1and S2. 16:59 ECG was reviewed by the Attending Physician. ms3 Vital Signs: 11:07 BP 131 / 68; Pulse 111; Resp 15; Temp 98.4; Pulse Ox 96% on R/A; Weight 80.74 kg; hb Height 5 ft. 0 in. ; Pain 8/10; 11:30 BP 104 / 56; Pulse 130; Resp 18; Pulse Ox 98% on R/A; eh3 12:00 BP 101 / 57; Pulse 126; Resp 18; Pulse Ox 96% on R/A; eh3 12:30 BP 98 / 54; Pulse 122; Resp 13; Pulse Ox 95% on R/A; eh3 13:13 BP 104 / 52; Pulse 100; Resp 12; Pulse Ox 98% on R/A; eh3 13:30 BP 93 / 58; Pulse 96; Resp 22; Pulse Ox 95% on R/A; eh3 13:54 Pulse 89; ms3 14:00 BP 108 / 62; Pulse 90; Resp 19; Pulse Ox 99% on R/A; eh3 15:00 BP 90 / 69; Pulse 95; Resp 18; Pulse Ox 99% on R/A; eh3 15:15 BP 105 / 56; Pulse 85; Resp 18; Pulse Ox 98% on R/A; eh3 15:30 BP 101 / 84; Pulse 96; Resp 18; Pulse Ox 98% on R/A; eh3 16:00 BP 121 / 75; Pulse 102; Resp 22; Pulse Ox 100% on R/A; eh3 16:30 BP 126 / 70; Pulse 89; Resp 20; Pulse Ox 100% on R/A; eh3 17:00 BP 128 / 66; Pulse 90; Resp 20; Pulse Ox 100% on R/A; eh3 11:07 Body Mass Index 34.76 (80.74 kg, 152.4 cm) hb 11:07 Pain Scale: Adult hb MDM: 11:09 Patient medically screened. ms3 11:14 Differential diagnosis: Cervical Disc Herniation Cervical Raiculopathy cervical strain, ms3 Diabetic Neuropathy Vertebral artery dissection. 11:14 Independent interpretation of the following test(s) in the Emergency Department Cardiac ms3 monitor: rate is 102 beats/min, Rhythm is paced rhythm with no ectopy, Interpretation: paced. 15:30 Historians other than the Patient: Daughter/Son: Patient's daughter. Care significantly ms3 affected by the following chronic conditions: Diabetes, Hypertension, Chronic Kidney Disease. Scoring Tools HEART Score: History: Slightly Suspicious (0) ECG: Non specific repolarization disturbance/ LBTB/ PM (1) Age: > or = 65 years (2) Risk Factors: > or = 3 Risks factors for Atherosclerotic disease (2) Troponin: < or = 1 x Normal limit (0) Total Score = 5. Counseling: I had a detailed discussion with the patient and/or guardian regarding: the historical points, exam findings, and any diagnostic results supporting the discharge/admit diagnosis, lab results, radiology results, the need for further work-up and treatment in the hospital. Medication response: Higbee- pain resolved. Response to treatment: the patient's symptoms have markedly improved after treatment, and as a result, I will admit patient. ED course: Discussed patient's heart score with patient and her daughter. Patient agrees with observation. All questions were answered. Discussed case with hospitalist team and they accept patient as observation. 15:38 Data reviewed: vital signs, nurses notes, lab test result(s), EKG, radiologic studies, ms3 and as a result, I will continue to observe the patient. Consideration of Admission/Observation Patient was admitted/placed on observation. Management of patient was discussed with the following: Hospitalist: . I considered the following discharge prescriptions or medication management in the emergency department Medications were administered in the Emergency Department. See APR. 07/26 11:13 Order name: Basic Metabolic Panel; Complete Time: 12:11 ms3 07/26 11:13 Order name: CBC with Diff; Complete Time: 12:04 ms3 07/26 11:13 Order name: Magnesium; Complete Time: 12:11 ms3 07/26 11:13 Order name: Troponin HS; Complete Time: 12:11 ms3 07/26 13:54 Order name: Troponin HS; Complete Time: 15:29 ms3 07/26 16:56 Order name: Magnesium; Complete Time: 05:42 EDMS 07/26 16:56 Order name: Phosphorus; Complete Time: 05:42 EDMS 07/26 16:56 Order name: T4 Free; Complete Time: 05:42 EDMS 07/26 16:56 Order name: Thyroid Stimulating Hormone; Complete Time: 05:42 EDMS 07/26 16:56 Order name: Urinalysis w/ reflexes; Complete Time: 05:42 EDMS 07/26 16:56 Order name: Basic Metabolic Panel EDMS 07/26 16:56 Order name: Basic Metabolic Panel; Complete Time: 05:42 EDMS 07/26 16:56 Order name: CBC with Automated Diff EDMS 07/26 16:56 Order name: CBC with Automated Diff; Complete Time: 05:42 EDMS 07/26 17:00 Order name: NT PRO-BNP EDMS 07/26 17:00 Order name: NT PRO-BNP; Complete Time: 05:42 EDMS 07/26 17:00 Order name: NT PRO-BNP; Complete Time: 05:42 EDMS 07/26 17:20 Order name: Glucose, Ancillary Testing; Complete Time: 05:42 EDMS 07/26 20:37 Order name: Glucose, Ancillary Testing; Complete Time: 05:42 EDMS 07/27 01:14 Order name: Glucose, Ancillary Testing; Complete Time: 05:42 EDMS 07/27 07:48 Order name: Glucose, Ancillary Testing EDMS 07/27 11:48 Order name: Glucose, Ancillary Testing EDMS 07/27 12:06 Order name: Troponin High Sensitivity EDMS 07/26 11:13 Order name: XRAY Chest (1 view); Complete Time: 13:50 ms3 07/26 12:12 Order name: US Carotid Artery Bilateral; Complete Time: 13:50 ms3 07/26 17:01 Order name: ERT ORTHOSTATIC V/S EDMS 07/26 17:01 Order name: ERT ORTHOSTATIC V/S EDMS 07/26 17:01 Order name: ERT ORTHOSTATIC V/S EDMS 07/26 17:01 Order name: ERT ORTHOSTATIC V/S EDMS 07/26 17:01 Order name: ERT ORTHOSTATIC V/S EDMS 07/26 11:13 Order name: EKG; Complete Time: 11:13 ms3 07/26 16:56 Order name: CONS Physician Consult EDMS 07/26 16:56 Order name: Diet Heart Healthy; Complete Time: 16:57 eh3 07/26 16:58 Order name: 60g Consistent Carbohydrate (ADA 1799/1999) EDMS 07/26 11:13 Order name: Cardiac monitoring; Complete Time: 11:15 ms3 07/26 11:13 Order name: EKG - Nurse/Tech; Complete Time: 11:35 ms3 07/26 11:13 Order name: IV Saline Lock; Complete Time: 11:35 ms3 07/26 11:13 Order name: Labs collected and sent; Complete Time: 11:35 ms3 07/26 11:13 Order name: O2 Per Protocol; Complete Time: 11:15 ms3 07/26 11:13 Order name: O2 Sat Monitoring; Complete Time: 11:15 ms3 EC:59 Rate is 130 beats/min. Rhythm is regular. QRS interval is prolonged. Clinical ms3 impression: Paced. Interpreted by me. Reviewed by me. Administered Medications: 11:20 Drug: Aspirin PO Chewable Tablet 324 mg Route: PO; eh3 12:30 Follow up: Response: No adverse reaction eh3 11:45 Drug: HYDROcodone-acetaminophen PO 5 mg-325 mg 1 tabs Route: PO; eh3 12:45 Follow up: Response: No adverse reaction eh3 11:45 Drug: Diazepam PO 5 mg Route: PO; eh3 12:45 Follow up: Response: No adverse reaction eh3 Disposition Summary: 07/26/22 15:37 Hospitalization Ordered Hospitalization Status: Observation ms3 Provider: Ihsan Fields ms3 Condition: Stable ms3 Problem: new ms3 Symptoms: are unchanged ms3 Bed/Room Type: Standard ms3 Location: Telemetry/MedSurg (observation)(07/27/22 12:02) ja1 Room Assignment: (07/27/22 13:14) [facility] Diagnosis - Chest pain, unspecified ms3 - Neck pain ms3 Forms: - Medication Reconciliation Form ms3 - SBAR form ms3 Signatures: Dispatcher [employer] EDMS Tremayne Martínez, TYLER-C ORCHID GROWER-Cla1 Jennifer Conteh RN RN Zaid Marcus RN WM [facility] Tristan Tracy DO DO ms3 Maritza Urbina RN RN 3 Sonya Leong 6 Corrections: (The following items were deleted from the chart) 12:15 11:14 Neck Angio+CT.RAD.BRZ ordered. EDMS EDMS 12:15 11:14 Head Angio+CT.RAD.BRZ ordered. EDMS EDMS 19:34 15:37 Telemetry/MedSurg (observation) ms3 bc6 19:34 15:37 ms3 bc6 07/27 12:02 06/07 19:34 [facility] ER HOLD bc6 ja1 07/27 12:02 0607 19:34 ERHOLD- bc6 ja1 07/27 12:51 12:02 228 ja1 ja1 13:10 12:51 ja1 ja1 13:14 13:10 228 ja1 ja1
--- NOTE | 2022-07-26 15:38 | ER ---
Nurse's Notes [facility] Name: Teena Simpson Age: 77 yrs Sex: Female : 1945 Arrival Date: 07/26/2022 Time: 10:55 Bed 23 Private MD: Diagnosis: Chest pain, unspecified;Neck pain Presentation: 07/26 11:06 Chief complaint: left sided neck pain x 3 days, chest pressure and nausea this morning. hb Coronavirus screen: At this time, the client does not indicate any symptoms associated with coronavirus-19. 11:06 Method Of Arrival: Wheelchair hb 11:07 Ebola Screen: No symptoms or risks identified at this time. Initial Sepsis Screen: Does hb the patient meet any 2 criteria? No. Patient's initial sepsis screen is negative. Does the patient have a suspected source of infection? No. Patient's initial sepsis screen is negative. Risk Assessment: Do you want to hurt yourself or someone else? Patient reports no desire to harm self or others. Onset of symptoms was July 23, 2022. 11:07 Acuity: TYSON 3 hb Historical: - Allergies: 11:08 Augmentin; hb 11:08 Cipro; hb 11:08 Keppra; hb - Home Meds: 11:08 atorvastatin 40 mg Oral tab 1 tab every day at bedtime [Active]; Eliquis 5 mg Oral hb tablet 1 tab 2 times per day [Active]; furosemide 40 mg Oral tab 1 tab daily [Active]; metoprolol succinate 50 mg Oral Tablet, Extended Release 24 hr 1 tab 2 times per day [Active]; Novolin N NPH U-100 Insulin 100 unit/mL Sub-Q tab 20 units every evening [Active]; Phenytoin 100mg Oral 1 tab 2 times per day [Active]; - PMHx: 11:08 High Cholesterol; Myocardial infarction; neuropathy; Seizures; Kidney failure stage 4; hb Diabetes - IDDM; Hypertension; Atrial Fib; CHF; Anxiety; Low HR; - PSHx: 11:08 Appendectomy; Hemorrhoidectomy; Pacemaker-Defib; hb - Immunization history:: Adult Immunizations up to date. - Social history:: Smoking status: Patient denies any tobacco usage or history of. Screenin:10 [facility] ED Fall Risk Assessment (Adult) Score/Fall Risk Level 0 - 2 = Low Risk. Abuse eh3 screen: Denies threats or abuse. Denies injuries from another. Nutritional screening: No deficits noted. Tuberculosis screening: No symptoms or risk factors identified. Assessment: 11:10 General: Appears distressed, uncomfortable, Behavior is cooperative, appropriate for eh3 age, anxious. Pain: Complains of pain in neck. Neuro: Level of Consciousness is awake, alert, obeys commands, Oriented to person, place, time, situation. Cardiovascular: Capillary refill < 3 seconds Patient's skin is warm and dry. Cardiovascular: Rhythm is A-V sequential pacer. Cardiovascular: Reports chest pain, nausea. Respiratory: Airway is patent Respiratory effort is even, unlabored, Respiratory pattern is regular, symmetrical. GI: Abdomen is round non-distended, Reports nausea. : No signs and/or symptoms were reported regarding the genitourinary system. EENT: No signs and/or symptoms were reported regarding the EENT system. Derm: Skin is pink, warm \T\ dry. Musculoskeletal: Circulation, motion, and sensation intact. 12:00 Reassessment: Patient appears in no apparent distress at this time. Patient and/or eh3 family updated on plan of care and expected duration. Pain level reassessed. Patient is alert, oriented x 3, equal unlabored respirations, skin warm/dry/pink. 13:00 Reassessment: Pt in CT. eh3 13:17 Reassessment: Patient appears in no apparent distress at this time. Patient and/or eh3 family updated on plan of care and expected duration. Pain level reassessed. Patient is alert, oriented x 3, equal unlabored respirations, skin warm/dry/pink. 14:00 Reassessment: Patient appears in no apparent distress at this time. Patient and/or eh3 family updated on plan of care and expected duration. Pain level reassessed. Patient is alert, oriented x 3, equal unlabored respirations, skin warm/dry/pink. 15:00 Reassessment: Patient appears in no apparent distress at this time. Patient and/or eh3 family updated on plan of care and expected duration. Pain level reassessed. Patient is alert, oriented x 3, equal unlabored respirations, skin warm/dry/pink. 16:00 Reassessment: Patient appears in no apparent distress at this time. Patient and/or eh3 family updated on plan of care and expected duration. Pain level reassessed. Patient is alert, oriented x 3, equal unlabored respirations, skin warm/dry/pink. 17:00 Reassessment: Patient appears in no apparent distress at this time. Patient and/or eh3 family updated on plan of care and expected duration. Pain level reassessed. Patient is alert, oriented x 3, equal unlabored respirations, skin warm/dry/pink. Vital Signs: 11:07 BP 131 / 68; Pulse 111; Resp 15; Temp 98.4; Pulse Ox 96% on R/A; Weight 80.74 kg; hb Height 5 ft. 0 in. ; Pain 8/10; 11:30 BP 104 / 56; Pulse 130; Resp 18; Pulse Ox 98% on R/A; eh3 12:00 BP 101 / 57; Pulse 126; Resp 18; Pulse Ox 96% on R/A; eh3 12:30 BP 98 / 54; Pulse 122; Resp 13; Pulse Ox 95% on R/A; eh3 13:13 BP 104 / 52; Pulse 100; Resp 12; Pulse Ox 98% on R/A; eh3 13:30 BP 93 / 58; Pulse 96; Resp 22; Pulse Ox 95% on R/A; eh3 13:54 Pulse 89; ms3 14:00 BP 108 / 62; Pulse 90; Resp 19; Pulse Ox 99% on R/A; eh3 15:00 BP 90 / 69; Pulse 95; Resp 18; Pulse Ox 99% on R/A; eh3 15:15 BP 105 / 56; Pulse 85; Resp 18; Pulse Ox 98% on R/A; eh3 15:30 BP 101 / 84; Pulse 96; Resp 18; Pulse Ox 98% on R/A; eh3 16:00 BP 121 / 75; Pulse 102; Resp 22; Pulse Ox 100% on R/A; eh3 16:30 BP 126 / 70; Pulse 89; Resp 20; Pulse Ox 100% on R/A; eh3 17:00 BP 128 / 66; Pulse 90; Resp 20; Pulse Ox 100% on R/A; eh3 11:07 Body Mass Index 34.76 (80.74 kg, 152.4 cm) hb 11:07 Pain Scale: Adult hb ED Course: 10:59 Patient arrived in ED. hb 10:59 Tristan Tracy DO is Attending Physician. ms3 11:02 Maritza Urbina, RN is Primary Nurse. eh3 11:08 Triage completed. hb 11:08 Arm band placed on. hb 11:10 Patient has correct armband on for positive identification. Placed in gown. Bed in low eh3 position. Call light in reach. Side rails up X2. Adult w/ patient. Client placed on continuous cardiac and pulse oximetry monitoring. NIBP monitoring applied. 12:06 XRAY Chest (1 view) In Process Unspecified. EDMS 13:11 US Carotid Artery Bilateral In Process Unspecified. EDMS 15:37 Ihsan Fields MD is Hospitalizing Provider. ms3 Administered Medications: 11:20 Drug: Aspirin PO Chewable Tablet 324 mg Route: PO; eh3 12:30 Follow up: Response: No adverse reaction eh3 11:45 Drug: HYDROcodone-acetaminophen PO 5 mg-325 mg 1 tabs Route: PO; eh3 12:45 Follow up: Response: No adverse reaction eh3 11:45 Drug: Diazepam PO 5 mg Route: PO; eh3 12:45 Follow up: Response: No adverse reaction eh3 Outcome: 15:37 Decision to Hospitalize by Provider. ms3 06/08 13:19 Patient left the ED. ss Signatures: Dispatcher [employer] EDOR Lola Carrillo RN RN Jennifer Conteh RN RN Tristan Tracy DO DO ms3 Maritza Urbina, RN RN 3 Corrections: (The following items were deleted from the chart) 06/07 11:09 11:07 Pulse 111bpm; Resp 15bpm; Pulse Ox 96% RA; Temp 98.4F; 80.74 kg; Height 5 ft. 0 hb in.; BMI: 34.7; Pain 8/10, Adult; hb 13:18 13:00 Reassessment: Patient appears in no apparent distress at this time. Patient eh3 and/or family updated on plan of care and expected duration. Pain level reassessed. Patient is alert, oriented x 3, equal unlabored respirations, skin warm/dry/pink. eh3 16:41 15:28 BP 105 / 56; eh3 eh3 17:32 16:30 BP 121 / 75; Pulse 102bpm; Resp 22bpm; Pulse Ox 100% RA; eh3 eh3
[2022-07-26] MEDS ORDERED: HYDROCODONE/APAP 5/325 MG TAB PO PRN (16:51)
[2022-07-26] MEDS ORDERED: ACETAMINOPHEN 325 MG TABLET PO PRN (16:51)
[2022-07-26] MEDS ORDERED: ONDANSETRON 4 MG/2 ML VIAL IV PRN (16:53)
--- NOTE | 2022-07-26 17:05 | P.HP ---
Certification for Inpatient Patient admitted to: Observation With expected LOS: <2 Midnights Patient will require the following post-hospital care: None Practitioner: I am a practitioner with admitting privileges, knowledge of patient current condition, hospital course, and medical plan of care. Services: Services provided to patient in accordance with Admission requirements found in Title 42 Section 412.3 of the Code of Federal Regulations Patient History Date of Service: 07/26/22 Reason for admission: Chest pain, Neck pain History of Present Illness: Patient is 77-year-old female with history of chronic systolic congestive heart failure, atrial fibrillation, DM 2, CKD 4, hypertension, [place] who presents with complaint of neck pain and chest pain. Patient indicated that neck pain has been ongoing for the past 1 week. Patient rated pain as 10/10 in severity and described pain as stabbing in quality. Patient reported that this morning she started having chest pain located in the substernal chest area rated as 7/10 in severity and described pain as pressure in quality. Patient reported associated signs and symptoms of dizziness, headache, bilateral lower extremity weakness, left hand numbness, nausea, fever, poor appetite, urinary frequency, bilateral lower extremity swelling and shortness of breath with exertion. Patient repo rted that she had a hemorrhoidectomy on 07/12/2022. Patient denies any other signs or symptoms. Symptoms are aggravated or relieved by nothing. Patient decided to present to the hospital due to worsening symptoms. Allergies amoxicillin [From Augmentin] Adverse Reaction (Verified 05/06/22 04:49) Nausea/Vomiting ciprofloxacin Adverse Reaction (Verified 05/06/22 04:49) Nausea/Vomiting clavulanic acid [From Augmentin] Adverse Reaction (Verified 05/06/22 04:49) Nausea/Vomiting Home Medications: Atorvastatin Calcium [Lipitor] 40 mg PO BEDTIME 08/07/21 Insulin NPH Human Isophane [Novolin N] 30 unit SQ 0800,199908/07/21 PHENYTOIN ER Cap [Dilantin ER Cap*] 100 mg PO BID 08/07/21 Metoprolol Succinate [Toprol Xl*] 50 mg PO BID 6AM 6PM #60 tab 05/09/22 Sacubitril/Valsartan [Entresto 24 mg-26 mg Tablet] 0.5 tab PO DAILY 07/10/22 Apixaban [Eliquis] 5 mg PO BID 07/12/22 Furosemide [Lasix*] 40 mg PO DAILY #30 tab 07/20/22 - Past Medical/Surgical History Diabetic: Yes -: Seizures -: Atrial fibrillation on chronic anticoagulation -: Diabetes mellitus type 2insulin-dependent -: Hypertension -: Hyperlipidemia -: Chronic systolic congestive heart failure -: CAD -: CKD 4 -: neuropathy -: w?EF 20-25% -: defibrilator -: PNA -: defib/pacemaker placement x2 -: exploratory lap -: appendectomy -: Hemorrhoidectomy Psychosocial/ Personal History: Patient lives at home with family - Family History Father -: Hypertension, Lung disease Mother -: Heart disease, Hypertension, Diabetes Sister -: Diabetes Brother -: Diabetes, Kidney disease - Social History Smoking Status: Never smoker Alcohol use: No CD- Drugs: No Caffeine use: Yes Place of Residence: Home Review of Systems General: Fever, Weakness, Other (Poor appetite ) Eyes: Unremarkable ENT: Unremarkable Respiratory: Shortness of Breath, SOB with Excertion Cardiovascular: Chest Pain Gastrointestinal: Nausea Genitourinary: Frequency Musculoskeletal: Neck Pain, Pedal edema Integumentary: Unremarkable Neurological: Weakness, Numbness, Other (Dizziness, FARLEY, ) Lymphatics: Unremarkable Physical Examination - Physical Exam General: Alert, In no apparent distress, Oriented x3, Cooperative HEENT: Atraumatic, PERRLA, Mucous membr. moist/pink, EOMI, Sclerae nonicteric Neck: Supple, 2+ carotid pulse no bruit, No LAD, Without JVD or thyroid abnormality Respiratory: Normal air movement, Diminished Cardiovascular: Regular rate/rhythm, Normal S1 S2, Edema Capillary refill: <2 Seconds Gastrointestinal: Normal bowel sounds, Soft and benign, No tenderness Musculoskeletal: No tenderness, Swelling Integumentary: No rashes, No significant lesion Neurological: Normal gait, Normal speech, Normal tone, Normal affect Lymphatics: No axilla or inguinal lymphadenopathy - Studies Laboratory Data (last 24 hrs) 07/26/22 11:30: WBC 7.40, Hgb 11.7 L, Hct 33.8 L, Plt Count 264 07/26/22 11:30: Sodium 139, Potassium 3.7, BUN 81 H, Creatinine 2.06 H, Glucose 236 H, Magnesium 2.2 Assessment and Plan - Plan --Chest pain. Likely atypical. Serial troponins negative so far. Cardiology consulted. Telemetry to monitor any significant arrhythmia. Will await further recommendation from rehabilitation engineer. -- Cervicalgia. MRI C-spine pending for further evaluation. Will manage pain with current pain medication regimen. --CKD 4. Stable We will continue to monitor renal functions. --Atrial fibrillation. Continue Eliquis. --Hyperlipidemia. Continue statin. --Hypertension. Patient currently hypotensive. We will hold off on BP meds. We will continue to monitor blood pressure levels. --DM2 with hyperglycemia. BS monitoring with sliding scale insulin and NPH . --Anemia of chronic disease. H&H stable. We will continue to monitor hemoglobin and transfuse if less than 7.0. --Acute on Chronic systolic CHF. Continue diureis with Lasix. Daily weight and strict I/O. --Class II obesity. Likely secondary to excess calories intake. Patient counseled on weight reduction, diet and excise therapy. --DVT prophylaxis with Eliquis. Discharge Plan: Home Plan to discharge in: 48 Hours - Advance Directives Does patient have a Living Will: No Does patient have a Durable POA for Healthcare: Yes - Code Status/Comfort Care Code Status Assessed: Yes Physician Review: Patient Assessed, Agree with Above Assessment and Plan Critical Care: No
[2022-07-26 20:07] LABS: Magnesium 2.3 mg/dL (1.6-2.4); Phosphorus 4.5 mg/dL (2.5-4.9); Thyroid Stimulating Hormone 0.743 uIU/mL (0.358-3.740)
[2022-07-26] MEDS ORDERED: APIXABAN 5 MG TABLET PO SCH (21:00)
[2022-07-26] MEDS ORDERED: D50W 25 GM/50 ML SYRINGE IV PRN ×2 (21:17→22:41)
[2022-07-26] MEDS ORDERED: GLUCAGON 1 MG/VIAL IM PRN ×2 (21:17→22:41)
[2022-07-26] MEDS ORDERED: D10W 125 ML IV PRN (21:33)
[2022-07-26] MEDS ORDERED: APIXABAN 5 MG TABLET ONE (21:35)
[2022-07-26] MEDS ORDERED: FUROSEMIDE 40 MG/4 ML VIAL ONE (21:36)
[2022-07-26] MEDS: FUROSEMIDE 40 MG/4 ML VIAL IV SCH (21:52)
[2022-07-26] MEDS: MORPHINE 2 MG/ML SYR IV ONE (23:23)
[2022-07-26] MEDS ORDERED: MORPHINE 2 MG/ML SYR ONE (23:30)
[2022-07-26 23:52] VITALS: BMI 34.7
[2022-07-27 01:54] LABS: Renal Epithelial <5 /HPF (None Seen); Specific Gravity 1.008 (1.005-1.030); Urine Bacteria <20 /HPF (<20); Urine Bilirubin NEGATIVE (Negative); Urine Blood Negative (Negative); Urine Clarity Clear (Clear); Urine Color Colorless (Yellow); Urine Glucose NEGATIVE (Negative); Urine Mucus Slight /HPF (None Seen); Urine Protein NEGATIVE (Negative); Urine RBC None Seen /HPF (None Seen); Urine Urobilinogen Normal (Normal); Urine pH 6.5 (5.0-7.0)
[2022-07-27 02:36] LABS: Absolute Lymphocytes (CBC) 2.2 K/uL (0.7-4.9); Hematocrit 31.3 % (36.0-45.0); Lymphocytes % 28.4 % (15.3-44.8); MCV 94.9 fL (80-100); MPV 10.6 fL (7.6-11.3)
[2022-07-27 02:48] LABS: Potassium 3.6 mEq/L (3.5-5.1)
[2022-07-27] MEDS ORDERED: POTASSIUM 25 MEQ EFFERV TAB PO ONE (04:00)
[2022-07-27] MEDS: MORPHINE 2 MG/ML SYR IV ONE (04:03)
[2022-07-27] MEDS ORDERED: POTASSIUM 25 MEQ EFFERV TAB ONE (04:08)
[2022-07-27] MEDS: INSULIN -REGULAR HUMAN 50 UNIT/0.5 ML ML SQ SCH ×2 (07:30→11:30)
[2022-07-27] MEDS ORDERED: NPH (HUMAN) 100 UNITS/ML INSULIN SQ SCH ×2 (08:00→20:00)
[2022-07-27] MEDS ORDERED: ASPIRIN 81 MG CHEWABLE TABLET ONE (08:12)
[2022-07-27] MEDS ORDERED: FUROSEMIDE 40 MG/4 ML VIAL ONE (08:13)
[2022-07-27] MEDS ORDERED: APIXABAN 5 MG TABLET ONE (08:13)
--- NOTE | 2022-07-27 08:14 | P.PN ---
Date of Service: 07/27/22
--- NOTE | 2022-07-27 08:15 | P.PN ---
Date of Service: 07/27/22 Subjective: stabbing pain in neck, +tender, worsened when turning head recently got a new bed ~2 months ago chest pain no longer present otherwise no new / worsening problems ROS: 10 point ROS as noted above, otherwise negative Physical Exam: GEN: Alert, oriented x2, NAD HEENT: Normal conjunctiva, sclera anicteric CV: Regular rate and rhythm, no edema Pulm: Nonlabored respirations on room air ABD: Soft, nontender, nondistended MSK: No joint tenderness Integumentary: No rashes Neuro: Normal speech, normal affect vitals reviewed Problem List: VTE: Code: Dispo:
[2022-07-27] MEDS: FUROSEMIDE 40 MG/4 ML VIAL IV SCH (08:21)
[2022-07-27] MEDS: NPH (HUMAN) 100 UNITS/ML INSULIN SQ SCH ×2 (09:00→09:02)
[2022-07-27] MEDS ORDERED: ASPIRIN 81 MG CHEWABLE TABLET PO SCH (09:00)
[2022-07-27] MEDS ORDERED: NPH (HUMAN) 100 UNITS/ML INSULIN SQ ONE (09:03)
[2022-07-27] MEDS ORDERED: HYDROCODONE/APAP 5/325 MG TAB ONE (09:26)
--- NOTE | 2022-07-27 12:19 | CON ---
Date of Consultation: 07/27/2022 Reason For Consultation: Elevated BUN and creatinine. Fluid management. History Of Present Illness: This is a pleasant 77-year-old female, well known to me from the office followup with Dr. Shannon with significant past medical history of diabetes, complicated with neuropathy and nephropathy; hypertension; hyperlipidemia; chronic kidney disease secondary to cardiorenal, diab etes, nephropathy with baseline creatinine of 2. GFR of 20. CAD complicated with heart failure, eje ction fraction of 35%, AFib. Apparently, patient had colonoscopy with multiple polyp removal. Patie nt started having back pain and chest pain with neck pain continuously. For that reason, she came. Patient is also complaining of left hand numbness and bilateral lower extremity swelling and shortnes s of breath. Over the night, patient was treated as CHF exacerbation with aggressive diuresis. Upon arrival to the hospital, patient had elevation in creatinine up to 2.6. After diuresis, creatinine was down at 1.8, which is around her baseline. The patient is on room air and lying flat. Allergies: AMOXICILLIN, CIPRO, AND . Home Medications: Include atorvastatin, insulin, Dilantin, Entresto, Eliquis, Lasix 40 daily. Past Medical History: Include: 1.Seizure. 2.Atrial fibrillation. 3.Diabetes complicated with neuropathy and nephropathy. 4.Hypertension. 5.Hyperlipidemia. 6.Chronic kidney disease, stage 4. Baseline creatinine 2. GFR of 20, secondary to diabetes nephrop athy and cardiorenal syndrome. 7.CAD complicated with congestive heart failure. Ejection fraction of 25%. Past Surgical History: Include: 1.ICD placement. 2.Exploratory lap. 3.Appendectomy. 4.Hemorrhoidectomy. Family History: Positive for hypertension, CAD, and diabetes. Social History: Denied smoking. Denies alcohol. Denies drug abuse. Review of Systems: Head and Neck: Pain. GI: Has no nausea, no vomiting. 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 Respiratory: Has shortness of breath. Cardiovascular: Has chest pain and orthopnea. Endocrine: No polydipsia. Skin: No rash. Neuro: Has neuropathy and leg pain. Musculoskeletal: Has leg pain and neck pain. Physical Examination: Vital Signs: When I saw the patient, patient is lying in bed. Blood pressure of 100/87, pulse of 90 , afebrile. Chest: Clear to auscultation. Heart: S1, S2. Systolic murmur. Abdomen: Soft, nontender. Extremities: Trace edema. Neurologic: Alert. No focality. Laboratory Data: Sodium 142, potassium 3.6, bicarb 27, BUN 76, creatinine 1.8. GFR of 28. Calcium 8.3. WBC 7.7, H and H 10.6/31.3. Urinalysis was negative for infection. Current Medications: The patient is on in the hospital include: 1.Tylenol. 2.Aspirin. 3.Lasix 40 b.i.d. 4.Zofran. 5.Insulin. 6.Morphine. Assessment And Plan: 1.Acute kidney injury secondary to cardiorenal, secondary to congestive heart failure exacerbation. Currently, back to normal volume. I am going to go ahead and change the Lasix to oral. Patient is going to be cleared from the renal standpoint for discharge planning. 2.Hypokalemia. Continue . 3.Diabetes, as by primary. Thank you Dr. Fields for allowing us to participate in the care of your patient. Time spent examining the patient [id number], reviewing data, lab and radiology, placing order, disc ussing the case with the patient, discussing the case with the team members including nursing staff i n the ER, discussing the case with the hospitalist, more than 65 minutes. IFEANYI Voice ID: [id number] Report ID: [id number]
[2022-07-27] MEDS ORDERED: INSULIN -REGULAR HUMAN 50 UNIT/0.5 ML ML ONE (12:31)
--- NOTE | 2022-07-27 12:59 | P.DS ---
Admission Date: 07/26/22 Discharge Date: 07/27/22 Disposition: ROUTINE DISCHARGE Reason for Admission: Chest pain, Neck pain Consultations: Cardiology - Dr. Graf / Dr. Moore Nephrology - Dr. Colvin Brief History of Present Illness: 77 yo F, PMH: chronic systolic congestive heart failure, atrial fibrillation, DM 2, CKD 4, hypertension, IA Patient who presents with complaint of neck pain and chest pain. Neck pain has been ongoing for the past 1 week. Pain 10/10 in severity and described pain as stabbing in quality. Patient reported that this morning she started having chest pain located in the substernal chest area rated as 7/10 in severity and described pain as pressure in quality. Patient reported associated signs and symptoms of dizziness, headache, bilateral lower extremity weakness, left hand numbness, nausea, fever, poor appetite, urinary frequency, bilateral lower extremity swelling and shortness of breath with exertion. Patient reported that she had a hemorrhoidectomy on 07/12/2022. Hospital Course: Problem List: Chest pain Cervicalgia CKD 4 Atrial fibrillation, paroxysmal Hyperlipidemia Hypertension DM2 with hyperglycemia Anemia of chronic disease Acute on chronic systolic CHF Patient presented with neck and chest pain. Troponins were negative x3. Chest pain resolved. Cardiology recommended discontinuation of eliquis and planning to schedule her for outpatient cardiac catheterization early next week and needs to be off eliquis for at least 2 days. Labs were otherwise unremarkable / at her baseline. Her neck pain was reproducible on exam with palpation of posterior neck / cervical muscles. Prior CT neck when pain began ~1 month ago was negative for any significant acute findings / etiology. MRI unable to be obtained here due to her pacemaker. This seems to be musculoskeletal in origin. Less likely radiculopathy / pinched nerve. She did report getting a new bed ~2 months ago. This may be contributing to her pain. Discussed 1-2 weeks trial in different bed. Follow up with Neurology as outpatient if no improvement. For further evaluation to rule out nerve involvement - EMG/nerve conduction studies. No red flags on exam/history. MRI as outpatient. Discussed return precautions. Follow up: PCP 3-5 days Cardiology next week Neurology in ~1 month Physical Exam: GEN: Alert, oriented x3, NAD HEENT: Normal conjunctiva, sclera anicteric CV: Regular rate and rhythm, no edema Pulm: Nonlabored respirations on room air, clear to auscultation ABD: Soft, nontender, nondistended MSK: tenderness on palpation of muscles at base of posterior skull, pain when rotating head left and right. no pain with spurling's maneuver. Integumentary: No rashes Neuro: Normal speech, normal affect, intact b/l upper extremity sensation and strength Vital Signs/Physical Exam: Temp Pulse Resp BP Pulse Ox 97.2 F 91 H 16 126/93 H 100 07/27/22 12:00 07/27/22 12:00 07/27/22 12:00 07/27/22 12:00 07/27/22 12:00 Laboratory Data at Discharge: WBC 7.70 thou/uL (4.3-10.9) 07/27/22 01:43 Hgb 10.6 g/dL (12.0-15.0) L D 07/27/22 01:43 Hct 31.3 % (36.0-45.0) L 07/27/22 01:43 Plt Count 226 thou/uL (152-406) 07/27/22 01:43 Sodium 142 mEq/L (136-145) 07/27/22 01:43 Potassium 3.6 mEq/L (3.5-5.1) 07/27/22 01:43 BUN 76 mg/dL (7-18) H 07/27/22 01:43 Creatinine 1.84 mg/dL (0.55-1.02) H 07/27/22 01:43 Glucose 192 mg/dL (74-106) H 07/27/22 01:43 Phosphorus 4.5 mg/dL (2.5-4.9) 07/26/22 19:29 Magnesium 2.3 mg/dL (1.6-2.4) 07/26/22 19:29 Home Medications: Atorvastatin Calcium [Lipitor] 40 mg PO BEDTIME 08/07/21 Insulin NPH Human Isophane [Novolin N] 30 unit SQ 0800,199908/07/21 PHENYTOIN ER Cap [Dilantin ER Cap*] 100 mg PO BID 08/07/21 Metoprolol Succinate [Toprol Xl*] 50 mg PO BID 6AM 6PM #60 tab 05/09/22 Sacubitril/Valsartan [Entresto 24 mg-26 mg Tablet] 0.5 tab PO DAILY 07/10/22 Apixaban [Eliquis] 5 mg PO BID 07/12/22 Furosemide [Lasix*] 40 mg PO DAILY #30 tab 07/20/22 Hydrocodone 5/APAP 325 [[place] 5/325*] 1 tab PO Q8H PRN #15 tab 07/27/22 New Medications: Hydrocodone 5/APAP 325 [[place] 5/325*] 1 tab PO Q8H PRN #15 tab PRN Reason: Pain Scale 5-7 (Moderate) Physician Discharge Instructions: Patient presented with neck and chest pain. Troponins were negative x3. Cardiology recommended discontinuation of eliquis and planning to schedule her for outpatient cardiac catheterization early next week and needs to be off eliquis for at least 2 days. Labs were otherwise unremarkable / at her baseline. Her neck pain was reproducible on exam with palpation of posterior neck / cervical muscles. Prior CT neck when pain began ~1 month ago was negative for any significant acute findings / etiology. MRI unable to be obtained here due to her pacemaker. This seems to be musculoskeletal in origin. Less likely radiculopathy / pinched nerve. She did report getting a new bed ~2 months ago. This may be contributing to her pain. Discussed 1-2 weeks trial in different bed. Possibly further exacerbated from positioning for her hemorrhoidectomy done ~2-3 weeks ago. Follow up with Neurology as outpatient if no improvement. For further evaluation to rule out nerve involvement - EMG/nerve conduction studies. No red flags on exam/history. MRI as outpatient. Pain medication as needed Discussed return precautions. Follow up: PCP 3-5 days Cardiology next week Neurology in ~1 month Followup: NIKKI JORDAN [Primary Care Provider] - Time spent managing pt's care (in minutes): 45
[2022-07-27 14:29] VITALS: TEMP 98.4
[2022-07-27 14:49] VITALS: O2SAT 100
[2022-07-27 14:52] VITALS: BP 128/66
[2022-07-27] MEDS ORDERED: FUROSEMIDE 40 MG TABLET PO SCH (17:00)
--- NOTE | 2022-07-28 14:52 | EKG ---
Test Date: 2022-07-26 Test Time: 11:39:07 [employer] Insurance: [employer] MEASUREMENT RESULTS: Intervals: Rate: 130 DC: QRSD: 148 QT: 384 QTc: 565 [place]: P: DC: QRS: 141 T: -32 INTERPRETIVE STATEMENTS: Electronic ventricular pacemaker Compared to ECG 07/19/2022 23:43:00 No significant changes Electronically Signed On 07-28-22 14:45:15 CDT by Ross Graf
== END 2022-07-27 14:20 | disposition home or self-care (01) ==
LOC: ER 10:55 → ERHOLD 16:49 → 2ND 07-27 13:19
PROVIDERS: ADMIT Hospitalist; ATTEND Hospitalist
DX: R07.9 Chest pain, unspecified (principal); M54.2 Cervicalgia; I50.22 Chronic systolic (congestive) heart failure; I48.0 Paroxysmal atrial fibrillation; E11.21 Type 2 diabetes mellitus with diabetic nephropathy; E11.40 Type 2 diabetes mellitus with diabetic neuropathy, unspecified; E11.65 Type 2 diabetes mellitus with hyperglycemia; I10 Essential (primary) hypertension; D63.1 Anemia in chronic kidney disease; N18.4 Chronic kidney disease, stage 4 (severe); I25.2 Old myocardial infarction; E66.9 Obesity, unspecified; R56.9 Unspecified convulsions; Z68.34 Body mass index [BMI] 34.0-34.9, adult; Z88.1 Allergy status to other antibiotic agents; Z82.49 Family history of ischemic heart disease and other diseases of the circulatory system; Z71.3 Dietary counseling and surveillance; Z79.01 Long term (current) use of anticoagulants
CPT/HCPCS: 85025 ×2; 81001; 80048 ×2; 36415; 83735 ×2; 84100; 82947 ×5; 84443; 84484 ×3; 84439; 83880 ×2; 71045; 93880; J1815 ×2; J1940 ×2; J2270; 93005; G0378

== ENCOUNTER 2022-08-02 18:06 | Inpatient (IN) | payer OTHER ==
--- OUTSIDE RECORDS SUMMARY | 2022-08-02 18:15 | XMS REPORT | Continuity of Care Document ---
:1945 Author Organization [facility] t Address [address] [place] [address] [address] [place] [address] Care Team Providers Name Role Phone CAMRON ARIAS Primary Care Physician Unavailable Elaine Lamb Attending Clinician Unavailable FAM CRAIG Attending Clinician Unavailable SILVERIO ADAM Attending Clinician Unavailable SRIRAM HEATH Attending Clinician Unavailable Kumar SQUIRES, Sriram Attending Clinician Doctor Unassigned, Parole Attending Clinician Unavailable 2, [facility] Attending [...] IBIKUNLE, FOLUSHO F Attending Clinician Unavailable Ibikunle SUPERVISOR OF COMMUNICATIONS, Folusho F Attending Clinician Major SQUIRES, Clare Combs Attending Clinician CLARE GONSALVES Attending Clinician Unavailable Tommy BURK, Luis Alberto Attending Clinician Unavailable Mitchell Garcia MD Attending Clinician Po, [facility] Main Attending Clinician Unavailable Willian SQUIRES, Ortega Lester Attending Clinician [phone] ORTEGA DORSEY Attending Clinician Unavailable Cielo Bautista [...] GRAMM, SHANTEL A Attending Clinician Unavailable Gramm SUPERVISOR OF COMMUNICATIONS, Shantel A Attending Clinician Sabina Barba MD Attending Clinician SABINA BARBA Attending Clinician Unavailable Ericka Chen Attending Clinician ERICKA ACKERMAN Attending Clinician Unavailable Lab, Ang - Db Attending Clinician Unavailable VIRI PRICE Attending Clinician Unavailable Lab, [facility] Fam Pob I Attending Clinician Unavailable Jose SUPERVISOR OF COMMUNICATIONS, Karla Attending Clinician Dee SUPERVISOR OF COMMUNICATIONS, Viri Martinez Attending Clinician Teri Samano RN Attending Clinician Unavailable ERICH PANTOJA Attending Clinician Unavailable Pacemaker/Icd, [facility] Attending Clinician Unavailable Omole SUPERVISOR OF COMMUNICATIONS, Min Godinez Attending Clinician [phone] OMOLE, MIN GRETCHEN Attending Clinician Unavailable Nita Degroot DO Attending Clinician NITA DEGROOT Attending Clinician Unavailable NITA DEGROOT Attending Clinician Unavailable Provider, [facility] Attending Clinician Unavailable Anedevante SUPERVISOR OF COMMUNICATIONS, Monica Attending Clinician MONICA MCCORMICK Attending Clinician Unavailable Calli BURK, Jo More Attending Clinician Unavailable Kirt Thomason DO Attending Clinician Gab Servin MD Attending Clinician GAB SERVIN Attending Clinician Unavailable Cielo Henry RN Attending Clinician Fam Craig MD Attending Clinician [phone] Edgar Cortés MD Attending Clinician [phone] EDGAR CORTÉS Attending Clinician Unavailable Lubna Lal MD Attending Clinician LUBNA LAL Attending Clinician Unavailable , [facility] Echo Room 1 - Attending Clinician Unavailable Visit, [facility] Nurse Attending Clinician Unavailable Dago Gross MDHKaren Attending Clinician Pc, [facility] Vascular Room 1 - Attending Clinician Unavailable ALEXUS RAMOS Attending Clinician Unavailable ALEXUS RAMOS Attending Clinician Unavailable DAGO GROSSHKaren Attending Clinician Unavailable EVAN MARTIN Attending Clinician Unavailable EKATERINA BOUDREAUX Attending Clinician Unavailable Nate SUPERVISOR OF COMMUNICATIONS, Madeleine Strauss Attending Clinician Emily Lezama Attending Clinician [facility], Ad[facility] Heart Failure Cardio Attending Clinician Unavailjeremy [...] Effective Date Expiration Date Lucy toribio BLAKE/SANDRA [id number] 2019 MEDICARE ADVANTAGE 00:00:00 [employer] CHOICE [id number] 2022 00:00:00 Problems Condition Condition Condition Status Onset Resolution Last Treating Co mments Source Name Details Category Date Date Treatment Clinician Date Pulmonary Pulmonary Disease Active 2021-02 Uni vers hypertensi hypertensi 2-31 it y of on on 00:00: [address] Branch Presence Presence Disease Active 2021-02 Unive rs of cardiac of cardiac 2-30 it y of resynchron [place]ynchron [place] ization ization 00 Medical therapy therapy Branch defibrilla defibrilla tor tor (BIOINFORMATICS COMPUTER SCIENTIST-D) (BIOINFORMATICS COMPUTER SCIENTIST-D) SOB SOB Disease Active 2021-02 Univers (shortness (shortness 2-29 it y of of breath) of breath) 00:00: [place] 00 Medical Branch Atrial Atrial Disease Active Univers tachycardi tachycardi 2-25 it y of a a 00:00: [address] Branch Dizziness Dizziness Disease Active Uni [...] Added automatic ally from request for surgery [id number] Refusal of Refusal of Disease Active 2020-02 [...] rs LFTs LFTs 5- ity of 00:00: [place] [facility] Multiple Multiple Disease Active Overview: [...] colon 5-03 ity of polyps polyps 00:00: [address] Branch History of History of Disease Active U nivers pulmonary pulmonary 2-17 ity of embolism embolism 00:00: [place] [facility] Branch ICD ICD Disease Active Univers (implantab (implantab 2-17 it y of le le 00:00: [place] cardiovert cardiovert 00 Me dical er-defibri er-defibri Br anch llator) in llator) in place place Atrial Atrial Disease Active Univers fibrillati fibrillati 1-16 it y of on on 00:00: [address] Branch Syncope Syncope Disease Active Univers 1-15 ity of 00:00: [place] [facility] Branch DM DM Disease Active Univers (diabetes (diabetes 8-31 ity of mellitus), mellitus), 00:[place] type 2 type 2 00 Medical with renal with renal Br anch complicati complicati ons ons Anxiety Anxiety Disease Active Univers ity of [facility] CKD CKD Disease Active Univers (chronic (chronic ity of kidney kidney [place] disease) disease) Medica l stage 4, stage 4, Branch GFR 15-29 GFR 15-29 ml/min ml/min Epilepsy Epilepsy Disease Active Unive rs ity of [facility] Esophageal Esophageal Disease Active U nivers reflux reflux ity of [facility] HLD HLD Disease Active Univers (hyperlipi (hyperlipi it y of demia) demia) [facility] HTN HTN Disease Active Univers (hypertens (hypertens it y of ion) ion) [place] [facility] Non-ischem Non-ischem Disease Active U [...] tobacco Passive smoker Un iversity of use [place] [facility] History SDOH University o f Alcohol Std Drinks [place] [facility] History SDOH University o f Alcohol Binge [place] [facility] History SDOH Social Unive rsity of Connections [facility] Med ical Together Branch History SDOH Social Unive rsity of Connections [facility] Medical Branch History SDOH Social Unive rsity of Connections [place] [facility] Membership Branch History SDOH Social Unive rsity of [facility] Medical Meetings Branch Exposure to 2022-03-12 2022-03-22 Not sure University of SARS-CoV-2 (event) 00:00:00 07:50:00 [facility] Branch Alcohol intake 2022-03-14 2022-03-14 Current University of 00:00:00 00:00:00 non-drinker of [facility] alcohol Branch (finding) History SDOH 2022-02-17 2022-02-17 1 University o f Alcohol Frequency 00:00:00 00:00:00 [facility] Branch History SDOH Social 2022-02-17 2022-02-17 5 Unive rsity of Connections Phone 00:00:00 00:00:00 [facility] Branch History SDTN Social 2022-02-17 2022-02-17 98 Unive rsity of Connections Living 00:00:00 00:00:00 [place] [facility] History SDOH 2022-02-17 2022-02-17 7 University o f Physical Activity 00:00:00 00:00:00 [facility] ed[facility] DPW Branch History SDTN 2022-02-17 2022-02-17 1 University o f Physical Activity 00:00:00 00:00:00 [place] M edical MPS Branch History SDTN 2022-02-17 2022-02-17 5 University o f Financial 00:00:00 00:00:00 [place] [facility] History SDOH Food 2022-02-17 2022-02-17 1 Univers ity of Worry 00:00:00 00:00:00 [place] [facility] History SDOH Food 2022-02-17 2022-02-17 1 Univers ity of Scarcity 00:00:00 00:00:00 [place] [facility] History SDTN 2022-02-17 2022-02-17 2 University o f Transport Med 00:00:00 00:00:00 [place] [facility] al Branch History [facility] 2022-02-17 2022-02-17 2 University o f Transport Non-Med 00:00:00 00:00:00 [facility] Branch Tobacco use and 2022-02-16 2022-02-16 Smokeless Universit y of exposure 00:00:00 00:00:00 tobacco non-user [facility] dical Branch Tobacco Comment 2022-02-16 2022-02-16 exposed to "a Univer sity of 00:00:00 00:00:00 lot" of passive [place] Med ical smoke from Branch Sex [birth year] Universit y of 00:00:00 00:00:00 [facility] Smoking Status Start Date Stop Date Source Never smoked tobacco [facility] Medications Ordered Filled Start Stop Current Ordering Indication Dosage Frequency Signature Comments Components Source Medication Medication Date Date Medication? Clinician (SIG) Name Name metoprolol Yes [id number] 50mg Take 1 Univers succinate 2-07 tablet by ity o f XL 50 mg 24 00:00: mouth 2 [place] hr tablet 00 (two) Medical times Branch daily. amiodarone Yes [id number] 200mg Take 1 Univers 200 mg 1-26 tablet by ity of tablet 00:00: mouth [place] 00 daily. Medical Branch amiodarone Yes [id number] 200mg Take 1 Univers 200 mg 1-26 tablet by ity of tablet 00:00: mouth [place] 00 daily. Medical Branch amiodarone Yes [id number] 200mg Take 1 Univers 200 mg 1-26 tablet by ity of tablet 00:00: mouth [place] 00 daily. Medical Branch amiodarone Yes [id number] 200mg Take 1 Univers 200 mg 1-26 tablet by ity of tablet 00:00: mouth [place] 00 daily. Medical Branch amiodarone Yes [id number] 200mg Take 1 Univers 200 mg 1-26 [...] at 6am and 6pm furosemide 2022- Yes [id number] 40mg Take 1 Univers 40 mg 1-10 tablet by ity of tablet 00:00: mouth [place] 00 every Medical morning Branch and evening. metoprolol Yes [id number] 50mg Take 1 Univers succinate 1-10 tablet by ity o f XL 50 mg 24 00:00: mouth 2 [place] hr tablet 00 (two) Medical times Branch daily. apixaban Yes 1358 2.5mg Take 1 Univer s (ELIQUIS) 1-10 tablet by ity o f 2.5 mg 00:00: mouth 2 [place] tablet 00 (two) Medical times Branch daily. Indication s: atrial fibrillati on furosemide Yes [id number] 40mg Take 1 Univers 40 mg 1-10 tablet by ity of tablet 00:00: mouth [place] 00 every Medical morning Branch and evening. metoprolol 2022-0 Yes [id number] 50mg Take 1 Univers succinate 1-10 tablet [...] s: atrial fibrillati on furosemide 0 Yes [id number] 40mg Take 1 Univers 40 mg 1-10 tablet by ity of tablet 00:00: mouth [place] 00 every Medical morning Branch and evening. metoprolol 2022-0 Yes [id number] 50mg Take 1 Univers succinate 1-10 tablet [...] s: atrial fibrillati on furosemide 0 Yes [id number] 40mg Take 1 Univers 40 mg 1-10 tablet by ity of tablet 00:00: mouth [place] 00 every Medical morning Branch and evening. metoprolol 2022-0 Yes [id number] 50mg Take 1 Univers succinate 1-10 tablet [...] s: atrial fibrillati on furosemide 2022-0 Yes [id number] 40mg Take 1 Univers 40 mg 1-10 tablet by ity of tablet 00:00: mouth [place] 00 every Medical morning Branch and evening. metoprolol 2022-0 Yes [id number] 50mg Take 1 Univers succinate 1-10 tablet [...] s: atrial fibrillati on furosemide 2022-0 Yes [id number] 40mg Take 1 Univers 40 mg 1-10 tablet by ity of tablet 00:00: mouth [place] 00 every Medical morning Branch and evening. metoprolol 2022-0 Yes [id number] 50mg Take 1 Univers succinate 1-10 tablet [...] s: atrial fibrillati on furosemide 2022-0 Yes [id number] 40mg Take 1 Univers 40 mg 1-10 tablet by ity of tablet 00:00: mouth [place] 00 every Medical morning Branch and evening. metoprolol 2022-0 Yes [id number] 50mg Take 1 Univers succinate 1-10 tablet [...] s: atrial fibrillati on furosemide 2022-0 Yes [id number] 40mg Take 1 Univers 40 mg 1-10 tablet by ity of tablet 00:00: mouth [place] 00 every Medical morning Branch and evening. apixaban 2022-0 Yes 1358 2.5mg Take 1 Univer s (ELIQUIS) 1-10 tablet by ity o f 2.5 mg 00:00: mouth 2 [place] tablet 00 (two) Medical times Branch daily. Indication s: atrial fibrillati on furosemide 2023-0 Yes [id number] 40mg Take 1 Univers 40 mg 1-10 tablet by ity of tablet 00:00: mouth [place] 00 every Medical morning Branch and evening. apixaban Yes 1358 2.5mg Take 1 Univer s (ELIQUIS) 1-10 tablet by ity o f 2.5 mg 00:00: mouth 2 [place] tablet 00 (two) Medical times Branch daily. Indication s: atrial fibrillati on metoprolol 202- No [id number] 50mg Take 1 Univers succinate 1-10 02-06 tablet by ity of XL 50 mg 24 00:00: 00:00 mouth 2 [place] hr tablet 00 :00 (two) Medical times Branch daily. insulin NPH Yes [id number] 20U inject 20 Univers 100 unit/mL 1-02 Units ity of injection 00:00: under the [place] 00 skin every Medical morning. Branch insulin NPH Yes [id number] 20U inject 20 Univers 100 unit/mL 1-02 Units ity of injection 00:00: under the [place] 00 skin every Medical morning. Branch insulin NPH Yes [id number] 20U inject 20 Univers 100 unit/mL 1-02 Units ity of injection 00:00: under the [place] 00 skin every Medical morning. Branch insulin NPH Yes [id number] 20U inject 20 Univers 100 unit/mL 1-02 Units ity of injection 00:00: under the [place] 00 skin every Medical morning. Branch insulin NPH Yes [id number] 20U inject 20 Univers 100 unit/mL 1-02 Units ity of injection 00:00: under the [place] 00 skin every Medical morning. Branch insulin NPH Yes [id number] 20U inject 20 Univers 100 unit/mL 1-02 Units ity of injection 00:00: under the [place] 00 skin every Medical morning. Branch insulin NPH Yes [id number] 20U inject 20 Univers 100 unit/mL 1-02 Units ity of injection 00:00: under the [place] 00 skin every Medical morning. Branch insulin NPH Yes [id number] 20U inject 20 Univers 100 unit/mL 1-02 Units ity of injection 00:00: under the [place] 00 skin every Medical morning. Branch insulin NPH 2022-0 Yes [id number] 20U inject 20 Univers 100 unit/mL 1-02 Units ity of injection 00:00: under the [place] 00 skin every Medical morning. Branch insulin NPH 2022-0 Yes [id number] 20U inject 20 Univers 100 unit/mL 1-02 Units ity of injection 00:00: under the [place] 00 skin every Medical morning. Branch insulin NPH 2022-0 Yes [id number] 20U inject 20 Univers 100 unit/mL 1-02 [...] 03:00: First dose [place] 00 on Sat [facility] 02/18/22 Branch at 2100, Until Discontinu ed, Routine insulin NPH 2022-0 Yes [id number] 15U inject 15 Univers 100 unit/mL 1-01 Units ity of injection 00:00: under the [place] 00 skin at Medical bedtime. Branch polyethylen 2022-0 Yes [id number] 17g Take 1 Univers e glycol 1- Packet by ity of 3350 17 00:00: mouth [place] gram powder 00 every 24 Medi sandra (twenty-fo Branch ur) hours as needed for Constipati on. insulin NPH 2022-0 Yes [id number] 15U inject 15 Univers 100 unit/mL 1-01 Units ity of injection 00:00: under the [place] 00 skin at Medical bedtime. Branch polyethylen 0 Yes [id number] 17g Take 1 Univers e glycol 1-01 Packet by ity of 3350 17 00:00: mouth [place] gram powder 00 every 24 Medi sandra (twenty-fo Branch ur) hours as needed for Constipati on. insulin NPH Yes [id number] 15U inject 15 Univers 100 unit/mL 1-01 Units ity of injection 00:00: under the [place] 00 skin at Medical bedtime. Branch polyethylen 0 Yes [id number] 17g Take 1 Univers e glycol 1-01 Packet by ity of 3350 17 00:00: mouth [place] gram powder 00 every 24 Medi sandra (twenty-fo Branch ur) hours as needed for Constipati on. insulin NPH Yes [id number] 15U inject 15 Univers 100 unit/mL 1-01 Units ity of injection 00:00: under the [place] 00 skin at Medical bedtime. Branch polyethylen 0 Yes [id number] 17g Take 1 Univers e glycol 1-01 Packet by ity of 3350 17 00:00: mouth [place] gram powder 00 every 24 Medi sandra (twenty-fo Branch ur) hours as needed for Constipati on. insulin NPH Yes [id number] 15U inject 15 Univers 100 unit/mL 1-01 Units ity of injection 00:00: under the [place] 00 skin at Medical bedtime. Branch polyethylen 0 Yes [id number] 17g Take 1 Univers e glycol 1-01 Packet by ity of 3350 17 00:00: mouth [place] gram powder 00 every 24 Medi sandra (twenty-fo Branch ur) hours as needed for Constipati on. insulin NPH Yes [id number] 15U inject 15 Univers 100 unit/mL 1-01 Units ity of injection 00:00: under the [place] 00 skin at Medical bedtime. Branch polyethylen 0 Yes [id number] 17g Take 1 Univers e glycol 1-01 Packet by ity of 3350 17 00:00: mouth [place] gram powder 00 every 24 Medi sandra (twenty-fo Branch ur) hours as needed for Constipati on. insulin NPH Yes [id number] 15U inject 15 Univers 100 unit/mL 1-01 Units ity of injection 00:00: under the [place] 00 skin at Medical bedtime. Branch polyethylen 2022-0 Yes [id number] 17g Take 1 Univers e glycol 1-01 Packet by ity of 3350 17 00:00: mouth [place] gram powder 00 every 24 Medi sandra (twenty-fo Branch ur) hours as needed for Constipati on. insulin NPH 2022-0 Yes [id number] 15U inject 15 Univers 100 unit/mL 1-01 Units ity of injection 00:00: under the [place] 00 skin at Medical bedtime. Branch polyethylen 2022-0 Yes [id number] 17g Take 1 Univers e glycol 1-01 Packet by ity of 3350 17 00:00: mouth [place] gram powder 00 every 24 Medi sandra (twenty-fo Branch ur) hours as needed for Constipati on. insulin NPH 2022-0 Yes [id number] 15U inject 15 Univers 100 unit/mL 1-01 Units ity of injection 00:00: under the [place] 00 skin at Medical bedtime. Branch polyethylen 2022-0 Yes [id number] 17g Take 1 Univers e glycol 1-01 Packet by ity of 3350 17 00:00: mouth [place] gram powder 00 every 24 Medi sandra (twenty-fo Branch ur) hours as needed for Constipati on. insulin NPH 2022-0 Yes [id number] 15U inject 15 Univers 100 unit/mL 1-01 Units ity of injection 00:00: under the [place] 00 skin at Medical bedtime. Branch polyethylen 2022-0 Yes [id number] 17g Take 1 Univers e glycol 1-01 Packet by ity of 3350 17 00:00: mouth [place] gram powder 00 every 24 Medi sandra (twenty-fo Branch ur) hours as needed for Constipati on. insulin NPH 2022-0 Yes [id number] 15U inject 15 Univers 100 unit/mL 1-01 Units ity of injection 00:00: under the [place] 00 skin at Medical bedtime. Branch polyethylen 2022-0 Yes [id number] 17g Take 1 Univers e glycol 1-01 Packet by ity of 3350 17 00:00: mouth [place] gram powder 00 every 24 Medi sandra (twenty-fo Branch ur) hours as needed for Constipati on. furosemide 2022- No [id number] 40mg Take 1 Univers 40 mg 02-19 tablet by ity of tablet 00:00: 05:59 mouth [place] 00 :00 every Medical morning Branch and evening for 30 days. furosemide 2022- No [id number] 40mg Take 1 Univers 40 mg 02-19 tablet by ity of tablet 00:00: 05:59 mouth [place] 00 :00 every Medical morning Branch and evening for 30 days. furosemide 2022- No [id number] 40mg Take 1 Univers 40 mg 02-19 tablet by ity of tablet 00:00: 00:00 mouth [place] 00 :00 every Medical morning Branch and evening for 30 days. furosemide 2022- No [id number] 40mg Take 1 Univers 40 mg 02-19 [...] Until Discontinu ed, Routine sulfur 2021-02- No [id number] 5mL 5 mL, Un araseli hexafluorid 02-17 9103 Intravenou i ty of e microsphr 15:00: 15:00 s, ONCE, 1 [place] (LUMASON) 00 :00 dose, On Medica l injection 5 Sun Branch mL 02/17/22 at 0900, Routine
sociology faculty member approving Restricted medication : KUMARSRIRAM polyethylen 2021-02 Yes 17g 17 g, Unive rs e glycol 2-30 Oral, ity of 3350 powder 05:09: [id number], [place] 17 g 36 Starting Medical [...] Branch 02/16/22 at 1100, JACQUI semaglutide Yes [id number] .25mg inject Univers (OZEMPIC) 8-17 0.25 mg ity of 0.25 mg or 00:00: under the [place] 0.5 mg(2 00 skin Medical mg/1.5 mL) weekly. Branch PnIj semaglutide Yes [id number] .25mg inject Univers (OZEMPIC) 8-17 0.25 mg ity of 0.25 mg or 00:00: under the [place] 0.5 mg(2 00 skin Medical mg/1.5 mL) weekly. Branch PnIj semaglutide Yes [id number] .25mg inject Univers (OZEMPIC) 8-17 0.25 mg ity of 0.25 mg or 00:00: under the [place] 0.5 mg(2 00 skin Medical mg/1.5 mL) weekly. Branch PnIj semaglutide Yes [id number] .25mg inject Univers (OZEMPIC) 8-17 0.25 mg ity of 0.25 mg or 00:00: under the [place] 0.5 mg(2 00 skin Medical mg/1.5 mL) weekly. Branch PnIj semaglutide 0 Yes [id number] .25mg inject Univers (OZEMPIC) 8-17 0.25 mg ity of 0.25 mg or 00:00: under the [place] 0.5 mg(2 00 skin Medical mg/1.5 mL) weekly. Branch PnIj semaglutide 0 Yes [id number] .25mg inject Univers (OZEMPIC) 8-17 0.25 mg ity of 0.25 mg or 00:00: under the [place] 0.5 mg(2 00 skin Medical mg/1.5 mL) weekly. Branch PnIj semaglutide 0 Yes [id number] .25mg inject Univers (OZEMPIC) 8-17 0.25 mg ity of 0.25 mg or 00:00: under the [place] 0.5 mg(2 00 skin Medical mg/1.5 mL) weekly. Branch PnIj semaglutide Yes [id number] .25mg inject Univers (OZEMPIC) 8-17 0.25 mg ity of 0.25 mg or 00:00: under the [place] 0.5 mg(2 00 skin Medical mg/1.5 mL) weekly. Branch PnIj semaglutide Yes [id number] .25mg inject Univers (OZEMPIC) 8-17 0.25 mg ity of 0.25 mg or 00:00: under the [place] 0.5 mg(2 00 skin Medical mg/1.5 mL) weekly. Branch PnIj semaglutide Yes [id number] .25mg inject Univers (OZEMPIC) 8-17 0.25 mg ity of 0.25 mg or 00:00: under the [place] 0.5 mg(2 00 skin Medical mg/1.5 mL) weekly. Branch PnIj semaglutide 2021-0 Yes [id number] .25mg inject Univers (OZEMPIC) 8-17 0.25 mg ity of 0.25 mg or 00:00: under the [place] 0.5 mg(2 00 skin Medical mg/1.5 mL) weekly. Branch PnIj semaglutide Yes [id number] .25mg inject Univers (OZEMPIC) 8-17 0.25 mg ity of 0.25 mg or 00:00: under the [place] 0.5 mg(2 00 skin Medical mg/1.5 mL) weekly. Branch PnIj semaglutide 2021-0 Yes [id number] .25mg inject Univers (OZEMPIC) 8-17 0.25 mg ity of 0.25 mg or 00:00: under the [place] 0.5 mg(2 00 skin Medical mg/1.5 mL) weekly. Branch PnIj semaglutide 2021-0 Yes [id number] .25mg inject Univers (OZEMPIC) 8-17 0.25 mg [...] capsules in the evening. amLODIPine 2-0 Yes [id number] 10mg Take 1 U nivers 10 mg 6-13 tablet by ity of tablet 00:00: mouth [place] 00 daily. Medical Branch amLODIPine 2-0 Yes [id number] 10mg Take 1 U nivers 10 mg 6-13 tablet by ity of tablet 00:00: mouth [place] 00 daily. Medical Branch amLODIPine 2-0 Yes [id number] 10mg Take 1 U nivers 10 mg 6-13 tablet by ity of tablet 00:00: mouth [place] 00 daily. Medical Branch amLODIPine 2-0 Yes [id number] 10mg Take 1 U nivers 10 mg 6-13 tablet by ity of tablet 00:00: mouth [place] 00 daily. Medical Branch amLODIPine 2-0 Yes [id number] 10mg Take 1 U nivers 10 mg 6-13 tablet by ity of tablet 00:00: mouth [place] 00 daily. Medical Branch amLODIPine 2021-0 2022- No [id number] 10mg Take 1 Univers 10 mg 6-13 01-10 tablet by ity of tablet 00:00: 00:00 mouth [place] 00 :00 daily. Medical Branch amLODIPine 2021-0 2022- No [id number] 10mg Take 1 Univers 10 mg 6-13 [...] s: atrial fibrillati on OXCARBAZEPI 2-0 Yes [id number] TAKE 1 Univers NE 150 mg 3-08 TABLET 2 X ity of tablet 00:00: A DAY FOR [place] 00 1 WEEK Medical THEN 2 Branch TABS 2X DAY FOR 1 WEEK 3 TABLES 2XADAY OXCARBAZEPI 2022-0 Yes [id number] TAKE 1 Univers NE 150 mg 3-08 TABLET 2 X ity of tablet 00:00: A DAY FOR [place] 00 1 WEEK Medical THEN 2 Branch TABS 2X DAY FOR 1 WEEK 3 TABLES 2XADAY OXCARBAZEPI 2022-0 Yes [id number] TAKE 1 Univers NE 150 mg 3-08 TABLET 2 X ity of tablet 00:00: A DAY FOR [place] 00 1 WEEK Medical THEN 2 Branch TABS 2X DAY FOR 1 WEEK 3 TABLES 2XADAY OXCARBAZEPI 2022-0 Yes [id number] TAKE 1 Univers [place] 150 mg 3-08 TABLET 2 X ity of tablet 00:00: A DAY FOR [place] 1 WEEK Medical THEN 2 Branch TABS 2X DAY FOR 1 WEEK 3 TABLES 2XADAY OXCARBAZEPI 2022-0 Yes [id number] TAKE 1 Univers [place] 150 mg 3-08 TABLET 2 X ity of tablet 00:00: A DAY FOR [place] 1 WEEK Medical THEN 2 Branch TABS 2X DAY FOR 1 WEEK 3 TABLES 2XADAY OXCARBAZEPI 2022-0 Yes [id number] TAKE 1 Univers [place] 150 mg 3-08 TABLET 2 X ity of tablet 00:00: A DAY FOR [place] 1 WEEK Medical THEN 2 Branch TABS 2X DAY FOR 1 WEEK 3 TABLES 2XADAY OXCARBAZEPI 2022-0 Yes [id number] TAKE 1 Univers NE 150 mg 3-08 TABLET 2 X ity of tablet 00:00: A DAY FOR [place] 00 1 WEEK Medical THEN 2 Branch TABS 2X DAY FOR 1 WEEK 3 TABLES 2XADAY OXCARBAZEPI 2022-0 Yes [id number] TAKE 1 Univers NE 150 mg 3-08 TABLET 2 X ity of tablet 00:00: A DAY FOR [place] 00 1 WEEK Medical THEN 2 Branch TABS 2X DAY FOR 1 WEEK 3 TABLES 2XADAY OXCARBAZEPI 2022-0 Yes [id number] TAKE 1 Univers NE 150 mg 3-08 TABLET 2 X ity of tablet 00:00: A DAY FOR [place] 00 1 WEEK Medical THEN 2 Branch TABS 2X DAY FOR 1 WEEK 3 TABLES 2XADAY OXCARBAZEPI 2022-0 Yes [id number] TAKE 1 Univers NE 150 mg 3-08 TABLET 2 X ity of tablet 00:00: A DAY FOR [place] 00 1 WEEK Medical THEN 2 Branch TABS 2X DAY FOR 1 WEEK 3 TABLES 2XADAY OXCARBAZEPI 2022-0 Yes [id number] TAKE 1 Univers [place] 150 mg 3-08 TABLET 2 X ity of tablet 00:00: A DAY FOR [place] 1 WEEK Medical THEN 2 Branch TABS 2X DAY FOR 1 WEEK 3 TABLES 2XADAY OXCARBAZEPI 2022-0 Yes [id number] TAKE 1 Univers [place] 150 mg 3-08 TABLET 2 X ity of tablet 00:00: A DAY FOR [place] 1 WEEK Medical THEN 2 Branch TABS 2X DAY FOR 1 WEEK 3 TABLES 2XADAY OXCARBAZEPI 2022-0 Yes [id number] TAKE 1 Univers [place] 150 mg 3-08 TABLET 2 X ity of tablet 00:00: A DAY FOR [place] 1 WEEK Medical THEN 2 Branch TABS 2X DAY FOR 1 WEEK 3 TABLES 2XADAY OXCARBAZEPI 2022-0 Yes [id number] TAKE 1 [facility] [place] 150 mg 3-08 TABLET 2 X ity of tablet 00:00: A DAY FOR [place] 1 WEEK Medical THEN 2 Branch TABS [...] 6am and 6pm insulin NPH 0 Yes [id number] 10U inject Univers (NOVOLIN N 04-13 10-15 ity of NPH U-100 00:00: Units [place] INSULIN) 00 under the Medica l 100 unit/mL skin every Br anch injection evening. insulin NPH Yes [id number] 10U inject Univers (NOVOLIN N 04-13 10-15 ity of NPH U-100 00:00: Units [place] INSULIN) 00 under the Medica l 100 unit/mL skin every Br anch injection evening. insulin NPH Yes [id number] 10U inject Univers (NOVOLIN N 04-13 10-15 ity of NPH U-100 00:00: Units [place] INSULIN) 00 under the Medica l 100 unit/mL skin every Br anch injection evening. insulin NPH 2022- No [id number] 10U inject Univers (NOVOLIN N 04-13 10-15 ity of NPH U-100 00:00: 00:00 Units [place] INSULIN) 00 :00 under the Medica l 100 unit/mL skin every Br anch injection evening. furosemide 0 Yes [id number] 20mg Take 1 Univers 20 mg 1-27 tablet by ity of tablet 00:00: mouth 00 daily. Medical Branch levETIRAcet 2021-0 Yes [id number] 500mg Take 1 Univers am 500 mg 1-27 tablet by ity o f tablet 00:00: mouth 2 00 (two) Medical times Branch daily. furosemide 2021-0 Yes [id number] 20mg Take 1 Univers 20 mg 1-27 tablet by ity of tablet 00:00: mouth [place] 00 daily. Medical Branch levETIRAcet 2021-0 Yes [id number] 500mg Take 1 Univers am 500 mg 1-27 tablet by ity o f tablet 00:00: mouth 2 [place] 00 (two) Medical times Branch daily. furosemide 2022-0 Yes [id number] 20mg Take 1 Univers 20 mg 1-27 tablet by ity of tablet 00:00: mouth 00 daily. Medical Branch levETIRAcet 2021-0 Yes [id number] 500mg Take 1 Univers am 500 mg 1-27 tablet by ity o f tablet 00:00: mouth (two) Medical times Branch daily. levETIRAcet 2021-0 Yes [id number] 500mg Take 1 Univers am 500 mg 1-27 tablet by ity o f tablet 00:00: mouth (two) Medical times Branch daily. levETIRAcet 2021-0 Yes [id number] 500mg Take 1 Univers am 500 mg 1-27 tablet by ity o f tablet 00:00: mouth (two) Medical times Branch daily. levETIRAcet 2021-0 Yes [id number] 500mg Take 1 Univers am 500 mg 1-27 tablet by ity o f tablet 00:00: mouth (two) Medical times Branch daily. levETIRAcet 2021-0 Yes [id number] 500mg Take 1 Univers am 500 mg 1-27 tablet by ity o f tablet 00:00: mouth (two) Medical times Branch daily. levETIRAcet 2021-0 Yes [id number] 500mg Take 1 Univers am 500 mg 1-27 tablet by ity o f tablet 00:00: mouth (two) Medical times Branch daily. levETIRAcet 2021-0 Yes [id number] 500mg Take 1 Univers am 500 mg 1-27 tablet by ity o f tablet 00:00: mouth (two) Medical times Branch daily. levETIRAcet 2021-0 Yes [id number] 500mg Take 1 Univers am 500 mg 1-27 tablet by ity o f tablet 00:00: mouth (two) Medical times Branch daily. levETIRAcet 2-0 Yes [id number] 500mg Take 1 Univers am 500 mg 1-27 tablet by ity o f tablet 00:00: mouth (two) Medical times Branch daily. levETIRAcet 2-0 Yes [id number] 500mg Take 1 Univers am 500 mg 1-27 tablet by ity o f tablet 00:00: mouth 2 [place] 00 (two) Medical times Branch daily. levETIRAcet 2021-0 Yes [id number] 500mg Take 1 Univers am 500 mg 1-27 tablet by ity o f tablet 00:00: mouth (two) Medical times Branch daily. levETIRAcet 2021-0 Yes [id number] 500mg Take 1 Univers am 500 mg 1-27 tablet by ity o f tablet 00:00: mouth 2 (two) Medical times Branch daily. furosemide 2021-0 3- No [id number] 20mg Take 1 Univers 20 mg 1-27 02-19 tablet by ity of tablet 00:00: 00:00 mouth [place] 00 :00 daily. Medical Branch pantoprazol 0 Yes [id number] 40mg Take 1 Univers e 40 mg EC 1-21 tablet by ity of tablet 00:00: mouth 00 daily. Medical Branch pantoprazol 0 Yes [id number] 40mg Take 1 Univers e 40 mg EC 1-21 tablet by ity of tablet 00:00: mouth 00 daily. Medical Branch pantoprazol 0 Yes [id number] 40mg Take 1 Univers e 40 mg EC 1-21 tablet by ity of tablet 00:00: mouth 00 daily. Medical Branch pantoprazol 2021-0 Yes [id number] 40mg Take 1 Univers e 40 mg EC 1-21 tablet by ity of tablet 00:00: mouth [place] 00 daily. Medical Branch pantoprazol 2021-0 Yes [id number] 40mg Take 1 Univers e 40 mg EC 1-21 tablet by ity of tablet 00:00: mouth 00 daily. Medical Branch pantoprazol 2021-0 Yes [id number] 40mg Take 1 Univers e 40 mg EC 1-21 tablet by ity of tablet 00:00: mouth [place] 00 daily. Medical Branch pantoprazol 2021-0 Yes [id number] 40mg Take 1 Univers e 40 mg EC 1-21 tablet by ity of tablet 00:00: mouth [place] 00 daily. Medical Branch pantoprazol 2021-0 Yes [id number] 40mg Take 1 Univers e 40 mg EC 1-21 tablet by ity of tablet 00:00: mouth [place] 00 daily. Medical Branch pantoprazol 2021-0 Yes [id number] 40mg Take 1 Univers e 40 mg EC 1-21 tablet by ity of tablet 00:00: mouth [place] 00 daily. Medical Branch pantoprazol Yes [id number] 40mg Take 1 Univers e 40 mg EC 1-21 tablet by ity of tablet 00:00: mouth [place] 00 daily. Medical Branch pantoprazol Yes [id number] 40mg Take 1 Univers e 40 mg EC 1-21 tablet by ity of tablet 00:00: mouth [place] 00 daily. Medical Branch pantoprazol Yes [id number] 40mg Take 1 Univers e 40 mg EC 1-21 tablet by ity of tablet 00:00: mouth [place] 00 daily. Medical Branch pantoprazol Yes [id number] 40mg Take 1 Univers e 40 mg EC 1-21 tablet by ity of tablet 00:00: mouth [place] 00 daily. Medical Branch pantoprazol Yes [id number] 40mg Take 1 Univers e 40 mg EC 1-21 tablet by ity of tablet 00:00: mouth [place] 00 daily. Medical Branch atorvastati 2020-02 Yes [id number] 40mg Take 1 Univers n 40 mg 2-14 tablet by ity of tablet 00:00: mouth at [place] 00 bedtime. Medical Branch insulin 2020-02 Yes 8U inject 8 Univer s regular 2-14 Units ity of human 00:00: under the [place] (NOVOLIN R 00 skin Medical REGULAR daily. Branch U-100 Daily at [facility]) 100 noon unit/mL injection atorvastati 2020-02 Yes [id number] 40mg Take 1 Univers n 40 mg 2-14 tablet by ity of tablet 00:00: mouth at [place] 00 bedtime. Medical Branch insulin 2020-02 Yes 8U inject 8 Univer s regular 2-14 Units ity of human 00:00: under the [place] (NOVOLIN R 00 skin Medical REGULAR daily. Branch U-100 Daily at [facility]) 100 noon unit/mL injection atorvastati 2020-02 Yes [id number] 40mg Take 1 Univers n 40 mg 2-14 tablet by ity of tablet 00:00: mouth at [place] 00 bedtime. Medical Branch insulin 2020-02 Yes 8U inject 8 Univer s regular 2-14 Units ity of human 00:00: under the [place] (NOVOLIN R 00 skin Medical REGULAR daily. Branch U-100 Daily at [facility]) 100 noon unit/mL injection atorvastati 2020-02 Yes [id number] 40mg Take 1 Univers n 40 mg 2-14 tablet by ity of tablet 00:00: mouth at [place] [address] bedtime. Medical Branch atorvastati 2020-02 Yes [id number] 40mg Take 1 Univers n 40 mg 2-14 tablet by ity of tablet 00:00: mouth at [place] [address] bedtime. Medical Branch atorvastati 2020-02 Yes [id number] 40mg Take 1 Univers n 40 mg 2-14 tablet by ity of tablet 00:00: mouth at [place] [address] bedtime. Medical Branch atorvastati 2020-02 Yes [id number] 40mg Take 1 Univers n 40 mg 2-14 tablet by ity of tablet 00:00: mouth at [place] [address] bedtime. Medical Branch atorvastati 2020-02 Yes [id number] 40mg Take 1 Univers n 40 mg 2-14 tablet by ity of tablet 00:00: mouth at [place] [address] bedtime. Medical Branch atorvastati 2020-02 Yes [id number] 40mg Take 1 Univers n 40 mg 2-14 tablet by ity of tablet 00:00: mouth at [place] [address] bedtime. Medical Branch atorvastati 2020-02 Yes [id number] 40mg Take 1 Univers n 40 mg 2-14 tablet by ity of tablet 00:00: mouth at [place] [address] bedtime. Medical Branch atorvastati 2020-02 Yes [id number] 40mg Take 1 Univers n 40 mg 2-14 tablet by ity of tablet 00:00: mouth at [place] [address] bedtime. Medical Branch atorvastati 2020-02 Yes [id number] 40mg Take 1 Univers n 40 mg 2-14 tablet by ity of tablet 00:00: mouth at [place] [address] bedtime. Medical Branch atorvastati 2020-02 Yes [id number] 40mg Take 1 Univers n 40 mg 2-14 tablet by ity of tablet 00:00: mouth at [place] [address] bedtime. Medical Branch atorvastati 2020-02 Yes [id number] 40mg Take 1 Univers n 40 mg 2-14 tablet by ity of tablet 00:00: mouth at [place] [address] bedtime. Medical Branch insulin 2020-023- No 8U [...] 2020-12-03 Completed University o f Polysaccharide, 00:00:00 [place] Med ical PPSV23 (PNEUMOVAX) Branch Influenza Virus [...] Completed Universit y of Conjugate, PCV13 00:00:00 [facility] dical (Prevnar 13) Branch Pneumococcal 13 2019-12-19 Completed Universit y of Conjugate, PCV13 00:00:00 [facility] dical (Prevnar 13) Branch Pneumococcal 13 2019-12-19 Completed Universit y of Conjugate, PCV13 00:00:00 [facility] dical (Prevnar 13) Branch Pneumococcal 13 2019-12-19 Completed Universit y of Conjugate, PCV13 00:00:00 [facility] dical (Prevnar 13) Branch Pneumococcal 13 2019-12-19 Completed Universit y of Conjugate, PCV13 00:00:00 [facility] dical (Prevnar 13) Branch Pneumococcal 13 2019-12-19 Completed Universit y of Conjugate, PCV13 00:00:00 [facility] dical (Prevnar 13) Branch Pneumococcal 13 2019-12-19 [...] Universit y of Conjugate, PCV13 00:00:00 [place] Ia dical (Prevnar 13) Branch Pneumococcal 13 2019-12-19 Completed Universit y of Conjugate, PCV13 00:00:00 [facility] dical (Prevnar 13) Branch Pneumococcal 13 2019-12-19 Completed Universit y of Conjugate, PCV13 00:00:00 [facility] dical (Prevnar 13) Branch Influenza Virus 2019-11-22 [...] Dosage 2018-03-25 Completed Unive rsity of 00:00:00 [place] [facility] HEP B, Adult Dosage 2018-03-25 Completed Unive rsity of 00:00:00 [facility] Branch HEP B, Adult Dosage 2018-03-25 Completed Unive rsity of 00:00:00 [facility] Branch HEP B, Adult Dosage 2018-03-25 Completed Unive rsity of 00:00:00 [place] [facility] HEP B, Adult Dosage 2018-03-25 Completed Unive rsity of 00:00:00 [place] [facility] HEP B, Adult Dosage 2018-03-25 Completed Unive rsity of 00:00:00 [place] [facility] HEP B, Adult Dosage 2018-03-25 Completed Unive rsity of 00:00:00 [place] [facility] HEP B, Adult Dosage 2018-03-25 Completed Unive rsity of 00:00:00 [facility] Branch HEP B, Adult Dosage 2018-03-25 Completed Unive rsity of 00:00:00 [place] [facility] HEP B, Adult Dosage 2018-03-25 [...] Dosage 2017-09-05 Completed Unive rsity of 00:00:00 [place] [facility] HEP B, Adult Dosage 2017-09-05 Completed Unive rsity of 00:00:00 [place] [facility] HEP B, Adult Dosage 2017-09-05 Completed Unive rsity of 00:00:00 [place] [facility] HEP B, Adult Dosage 2017-09-05 Completed Unive rsity of 00:00:00 [place] [facility] HEP B, Adult Dosage 2017-09-05 Completed Unive rsity of 00:00:00 [place] [facility] HEP B, Adult Dosage 2017-09-05 Completed Unive rsity of 00:00:00 [place] [facility] HEP B, Adult Dosage 2017-09-05 Completed Unive rsity of 00:00:00 [place] [facility] HEP B, Adult Dosage 2017-09-05 Completed Unive rsity of 00:00:00 [place] [facility] HEP B, Adult Dosage 2017-09-05 Completed Unive rsity of 00:00:00 [place] [facility] HEP B, Adult Dosage 2017-09-05 Completed Unive rsity of 00:00:00 [place] [facility] HEP B, Adult Dosage 2017-09-05 Completed Unive rsity of 00:00:00 [place] [facility] HEP B, Adult Dosage 2017-09-05 Completed Unive rsity of 00:00:00 [facility] Pneumococcal 13 2015-02-19 Completed Universit y of [...] ical PPSV23 (PNEUMOVAX) Branch Pneumococcal 2011-02-19 Completed [place] o f Polysaccharide, 00:00:00 [place] Med ical PPSV23 (PNEUMOVAX) Branch Pneumococcal 2011-02-19 Completed [place] o f Polysaccharide, 00:00:00 [place] Med ical PPSV23 (PNEUMOVAX) Branch Vital Signs Vital Name Observation Time Observation Value Comments Source Systolic blood 2022-03-16 14:28:00 128 mm[Hg] Univer sity of pressure [facility] Diastolic blood 2022-03-16 14:28:00 70 mm[Hg] Unive rsity of [facility] Heart rate 2022-03-16 14:28:00 93 /min [facility] Body temperature 2022-03-16 14:28:00 35.67 Lizz [facility] Respiratory rate 2022-03-16 14:28:00 17 /min [facility] Body weight 2022-03-16 14:28:00 81.058 kg [facility] BMI 2022-03-16 14:28:00 34.90 kg/m2 [facility] Oxygen saturation in 2022-03-16 14:28:00 98 /min [facility] Arterial blood by [facility] Pulse oximetry Branch Systolic blood 2022-03-14 19:37:00 138 mm[Hg] Univer sity of pressure [facility] Diastolic blood 2022-03-14 19:37:00 87 mm[Hg] Unive rsity of pressure [facility] Heart rate 2022-03-14 19:37:00 94 /min [facility] Respiratory rate 2022-03-14 19:37:00 20 /min [facility] Body height 2022-03-14 19:37:00 152.4 cm [facility] Body weight 2022-03-14 19:37:00 80.74 kg [facility] BMI 2022-03-14 19:37:00 34.76 kg/m2 Universi ty of [place] [facility] Oxygen saturation in 2022-03-14 19:37:00 99 /min University of Arterial blood by [facility] Pulse oximetry Branch Systolic blood 2022-02-28 14:57:00 130 mm[Hg] Univer sity of pressure [place] [facility] Diastolic blood 2022-02-28 14:57:00 83 mm[Hg] Unive rsity of pressure [place] [facility] Heart rate 2022-02-28 14:57:00 117 /min Universi ty of [place] [facility] Respiratory rate 2022-02-28 14:57:00 20 /min Univ ersity of [place] [facility] Body height 2022-02-28 14:57:00 152.4 cm Universi ty of [place] [facility] Body weight 2022-02-28 14:57:00 80.377 kg Universi ty of [place] [facility] BMI 2022-02-28 14:57:00 34.61 kg/m2 Universi ty of [place] [facility] Oxygen saturation in 2022-02-28 14:57:00 99 /min University of Arterial blood by [facility] Pulse oximetry Branch Systolic blood 2022-02-19 17:58:00 140 mm[Hg] Univer sity of pressure [place] [facility] Diastolic blood 2022-02-19 17:58:00 95 mm[Hg] Unive rsity of pressure [place] [facility] Heart rate 2022-02-19 17:58:00 115 /min Universi ty of [place] [facility] Body temperature 2022-02-19 13:46:00 36.78 Lizz Univ ersity of [place] [facility] Respiratory rate 2022-02-19 13:46:00 18 /min Univ ersity of [place] [facility] Oxygen saturation in 2022-02-19 13:46:00 94 /min University of Arterial blood by [facility] Pulse oximetry Branch Body weight 2022-02-18 10:44:00 83.462 kg Universi ty of [place] [facility] BMI 2022-02-18 10:44:00 35.94 kg/m2 Universi ty of [place] [facility] Systolic blood 2022-02-16 16:07:00 116 mm[Hg] Univer sity of pressure [place] [facility] Diastolic blood 2022-02-16 16:07:00 71 mm[Hg] Unive rsity of pressure [place] [facility] Heart rate 2022-02-16 16:07:00 85 /min [facility] Body temperature 2022-02-16 16:07:00 36.89 Lizz [facility] Respiratory rate 2022-02-16 16:07:00 17 /min [facility] Body weight 2022-02-16 16:07:00 84.823 kg [facility] BMI 2022-02-16 16:07:00 36.52 kg/m2 [facility] Oxygen saturation in 2022-02-16 16:07:00 96 /min [facility] Arterial blood by [facility] Pulse oximetry [place] Systolic blood 2021-10-05 15:13:00 152 mm[Hg] Univer sity [facility] Diastolic blood 2021-10-05 15:13:00 77 mm[Hg] Unive [facility] Body height 2021-10-05 15:12:00 152.4 cm [facility] Body weight 2021-10-05 15:12:00 88.315 kg [facility] BMI 2021-10-05 15:12:00 38.02 kg/m2 [facility] Procedures Procedure Date / Time Performing Clinician Source Performed AUTHORIZATION FOR RELEASE 2022-03-23 06:01:00 Doctor Unassigned, [facility] [place] [facility] Branch FLU 2022-03-16 14:43:42 Kia [facility] VACC([id number]),65+YR,0.5 Medica l Branch ML,IM,ADJUVANTED,QUAD(FLU AD) POCT GLUCOSE (AUTOMATED) 2022-02-19 17:59:00 Brii Samson [facility] XR CHEST 2 VW 2022-02-19 16:23:57 Sriram Heath [facility] POCT GLUCOSE (AUTOMATED) 2022-02-19 13:45:00 Brii Samson [facility] MAGNESIUM 2022-02-19 12:23:00 Rocael Vaughan [facility] BASIC METABOLIC PANEL 2022-02-19 12:23:00 Rocael Vaughan [facility] (NA, K, CL, CO2, GLUCOSE, Medica l Branch BUN, CREATININE, CA) CBC WITH DIFF 2022-02-19 12:23:00 Rocael Vaughan [facility] N-TERMINAL PRO-BNP 2022-02-19 12:23:00 Rocael Vaughan [facility] POCT GLUCOSE (AUTOMATED) 2022-02-19 07:07:00 Brii Samson [facility] POCT GLUCOSE (AUTOMATED) 2022-02-19 06:10:00 OvMarcie youngi [facility] POCT GLUCOSE (AUTOMATED) 2022-02-19 03:34:00 OvBrii young [facility] POCT GLUCOSE (AUTOMATED) 2022-02-18 23:14:00 Brii Samson [facility] POCT GLUCOSE (AUTOMATED) 2022-02-18 17:29:00 Brii Samson [facility] POCT GLUCOSE (AUTOMATED) 2022-02-18 13:40:00 Marcie Samsoni [facility] BASIC METABOLIC PANEL 2022-02-18 10:53:00 Rocael Vaughan [facility] (NA, K, CL, CO2, GLUCOSE, Medica l Branch BUN, CREATININE, CA) LIPID PANEL ([id number])(TOTAL 2022-02-18 10:53:00 [facility] CHOLE[facility], Medical Branch TRIGLYCERIDES, HDL) CBC WITH DIFF 2022-02-18 10:53:00 Rocael Vaughan [facility] N-TERMINAL PRO-BNP 2022-02-18 10:53:00 Rocael Vaughan [facility] POCT GLUCOSE (AUTOMATED) 2022-02-18 02:34:00 Brii Samson [facility] POCT GLUCOSE (AUTOMATED) 2022-02-17 22:16:00 Marcie Samsoni [facility] POCT GLUCOSE (AUTOMATED) 2022-02-17 17:45:00 OvBrii young [facility] POCT GLUCOSE (AUTOMATED) 2022-02-17 14:01:00 [facility] (TTE) 2022-02-17 13:56:00 Chapin [facility] COMPLETE W/ CONTRAST Medical Bra nch MAGNESIUM 2022-02-17 09:47:00 Chapin [facility] BASIC METABOLIC PANEL 2022-02-17 09:47:00 Chapin [facility] (NA, K, CL, CO2, GLUCOSE, Medica l Branch BUN, CREATININE, CA) N-TERMINAL PRO-BNP 2022-02-17 09:47:00 Chapin [facility] POCT GLUCOSE (AUTOMATED) 2022-02-17 03:55:00 Chapin [facility] POCT GLUCOSE (AUTOMATED) 2022-02-17 03:16:00 Chapin [facility] URINALYSIS 2022-02-16 18:07:00 Bird [facility] XR CHEST 1 VW 2022-02-16 17:06:49 Bird [facility] LIPASE 2022-02-16 16:59:00 Bird [facility] TROPONIN I 2022-02-16 16:59:00 Bird [facility] HEPATIC FUNCTION PANEL 2022-02-16 16:59:00 Bird [facility] ([id number]) (ALB,T.PRO,BILI [facility] Branch T,BU/BC,ALT,AST,ALK PHOS) BASIC METABOLIC PANEL 2022-02-16 16:59:00 Bidr [facility] (NA, K, CL, CO2, GLUCOSE, Medica l Branch BUN, CREATININE, CA) CBC WITH DIFF 2022-02-16 16:59:00 Bird [facility] GLYCOSYLATED HEMOGLOBIN 2022-02-16 16:59:00 Chapin [facility] (A1C) [facility] N-TERMINAL PRO-BNP 2022-02-16 16:59:00 Marina Pang [facility] [place] [facility] COVID-19 (ID NOW RAPID 2022-02-16 16:59:00 Marina Pang [facility] TESTING) Medical Branch LAB ONLY COVID 2022-02-16 16:59:00 Marina Pang [place] [facility] [place] INTERPRETATION [facility] HB ECG ROUTINE & RHYTHM 2022-02-16 16:52:36 Marina Pang [facility] CONSENT/REFUSAL FOR 2022-02-16 16:40:37 Doctor Unassigned, [facility] DIAGNOSIS AND TREATMENT Parole [facility] POCT HEMOGLOBIN A1C TEST 2021-10-05 15:15:00 Amita Gomez [facility] Encounters Start End Encounter Admission Attending Care Care Encounter Source Date/Time Date/Time Type Type Clinicians Facility Department ID 2022-06-14 Outpatient Lamb, STLMLC [facility] [id number] Common 12:46:01 Elaine [id number] [facility] 2022-06-02 Outpatient Lamb, STLMLC [facility] [id number] Common 14:48:01 Elaine [id number] [facility] 2020-12-17 Emergency [facility] [id number] Univers 21:39:43 [facility] 2020-12-17 [facility] [id number] Univers 18:26:[address] [facility] 2020-12-17 Emergency [facility] [id number] Univers 16:06:19 [facility] 2022-06-15 2022-06-15 Outpatient Moustapha ADAM [facility] [id number] Univers 09:00:00 09:00:00 SILVERIO [facility] 2022-04-27 2022-04-27 Outpatient Moustapha HEATH [facility] [id number] Univers 10:20:00 10:20:[address] [facility] 2022-03-27 2022-03-27 Refill Kumar [facility] [id number] Univers 00:00:00 00:00:00 Qiachaim PALOMO [id number] ity 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 [id number] [phone] Ia dical NAL 353 [facility] 2022-03-22 2022-03-22 Outpatient R KIAAULTMAN [facility] [id number] Univers 08:00:00 08:00:[address] [facility] 2022-03-16 2022-03-16 Outpatient R [facility] [id number] Univers 08:40:00 09:58:[address] [facility] 2022-03-16 2022-03-16 Office [facility] [id number] Univers 08:40:00 09:00:00 Visit Silverio PALOMO [id number] i ty of [facility] [id number] [phone] Ia dical NAL 059 [facility] 2022-03-14 2022-03-14 Office [facility] [id number] Univers 13:40:00 14:00:00 Visit Sriram [place] [id number] ity of [facility] [id number] [phone] Ia dical NAL 059 [facility] 2022-03-142022-03-14 Outpatient R KUMAR, [facility] [id number] Univers 13:40:00 13:40:00 SRIRAM de oliveira o f [facility] 2022-03-09 2022-03-09 Outpatient R KIA, [facility] [id number] Univers 09:59:09 23:59:[address] [facility] 2022-02-28 2022-02-28 Outpatient R KUMAR, [facility] [id number] Univers 09:00:00 09:16:53 SRIRAM de oliveira o f [facility] 2022-02-28 2022-02-28 Office [facility] 1.2.840.114 [id number] Univers 09:00:00 09:16:53 Visit Sriram PAL[place] 350.1.13.10 ity of [place] [phone] [facility] [address] [facility] 2022-02-21 2022-02-21 Transition JONO Galvan 1.2.840.114 [id number] Univers 00:00:00 00:00:00 of Care Nara MG 350.1.13.10 it y of [place].2.[place] [id number] [facility] [address] 2022-02-16 2022-02-19 Inpatient X CHAPIN [facility] SAMI [id number] Univers 10:48:00 16:07:[address] [facility] 2022-02-16 2022-02-19 [facility] Stephen PangeLeilani [facility] 1.2.840.11 [id number] Univers 10:48:00 16:07:00 Encounter Marcie Samsonkhadar PAL[place] 350.1.13.10 it[place] of [place] C[place] [phone] [facility] [address] 2022-02-16 2022-02-16 Fang Govea [facility] 1.2.840.114 [id number] Univers 09:45:00 10:05:00 Care Unknown, Attending HEALTH 350.1.13.10 it[place] of [place] 4.2.7.2.686 Bernabe as HUMPHREY?BLEA [id number] [facility] [address] MEDICAL OFFICE BUILDING 2022-02-16 2022-02-16 Outpatient R CASSI [facility] [id number] Univers 09:45:00 09:45:[address] [facility] 2022-01-31 2022-01-31 Outpatient R KUMAR, [facility] [id number] Univers 14:20:00 14:20:[address] [facility] 2022-01-31 2022-01-31 Outpatient R KUMAR, [facility] [id number] Univers 14:20:00 14:20:00 SRIRAM de oliveira o maine [facility] 2021-12-02 2021-12-02 Outpatient R KIA [facility] [id number] Univers 10:20:00 10:20:00 [facility] 2021-11-25 2021-11-25 Outpatient R KIA [facility] [id number] Univers 10:20:00 10:20:[address] [facility] 2021-11-25 2021-11-25 Outpatient R KIA [facility] [id number] Univers 10:20:00 10:20:00 [facility] 2021-10-05 2021-10-05 Outpatient R AMITA GOMEZ [facility] [id number] Univers 10:30:00 11:22:11 AMITA GOMEZ [facility] 2021-10-05 2021-10-05 Office Amita Gomez [facility] 1.2.840.114 [id number] Univers 10:30:00 11:22:11 Visit HEALTH 350.1.13.10 it y of [place] 4.2.7.2.686 Bernabe as HUMPHREY?BLEA [phone] [facility] [address] MEDICAL OFFICE BUILDING 2021-09-21 2021-09-21 Telephone [facility] 1.2.925.090 [id number] Univers 00:00:00 00:00:00 Wentong HEALTH 350.1.13.10 it y of [place] 4.2.7.2.686 Bernabe as HUMPHREY?BLEA [phone] Ia dical KNEY [address] MEDICAL OFFICE BUILDING 2021-08-19 2021-08-19 Outpatient R SEWANI, [facility] [id number] Univers 11:20:00 11:20:00 SILVERIO [facility] 2021-08-16 2021-08-16 Outpatient R CASTLE, [facility] [id number] Univers 13:00:00 13:00:00 WENTONG [facility] 2021-08-01 2021-08-01 Office Kumar, [facility] 1.2.840.114 [id number] Univers 13:40:00 14:02:37 Visit Sriram [place] 350.1.13.10 ity jarek [place] [phone] [address] 2021-08-01 2021-08-01 Outpatient R KUMAR, [facility] [id number] Univers 13:40:00 14:02:37 QIACHAIM ity o [facility] 2021-08-01 2021-08-01 Outpatient R KUMAR, [facility] [id number] Univers 13:40:00 13:40:00 QIANGJUN ity o [facility] 2021-08-01 2021-08-01 Outpatient R KUMAR, [facility] [id number] Univers 13:40:00 13:40:00 QIANGJUN ity o [facility] 2021-08-01 2021-08-01 Outpatient R KUMAR, [facility] [id number] Univers 13:40:00 13:40:00 QIANGJUN ity o [facility] 2021-08-01 2021-08-01 Outpatient R KUMAR, [facility] [id number] Univers 13:40:00 13:40:00 QIANGJUN ity o [facility] 2021-07-22 2021-07-22 Refill Kumar, [facility] 1.2.840.114 [id number] Univers 00:00:00 00:00:00 Sriram [place] 350.1.13.10 ity jarek [place] [phone] Ia dic[address] 2021-06-24 2021-06-24 Outpatient R KIA [facility] [id number] Univers 10:00:00 10:46:[address] [facility] 2021-06-24 2021-06-24 Office [facility] 1.2.840.114 [id number] Univers 10:00:00 10:20:00 Visit Silverio PALOMO 350.1.13.10 i ty of [place] 4.2.7.2.686 Bernabelauryn CALIXTOMANUELA [phone] [address] 2021-06-24 2021-06-24 Outpatient R KIA [facility] [id number] Univers 10:00:00 10:00:00 [facility] 2021-06-24 2021-06-24 Outpatient R KIAAULTMAN [facility] [id number] Univers 10:00:00 10:00:00 [facility] 2021-06-10 2021-06-10 Outpatient R KIA [facility] [id number] Univers 10:46:49 23:59:00 [facility] 2021-05-23 2021-05-23 Outpatient R KUMAR, [facility] [id number] Univers 15:00:00 15:00:00 SRIRAM diamond [facility] 2021-05-04 2021-05-04 Outpatient R KUMAR, [facility] [id number] Univers 08:00:00 23:59:00 SRIRAM de oliveira o [facility] 2021-05-04 2021-05-04 Outpatient R KUMAR, [facility] [id number] Univers 08:00:00 08:00:00 SRIRAM de oliveira o [facility] 2021-04-28 2021-04-28 Outpatient R BROOKS [facility] [id number] Univers 13:00:00 14:03:10 DIANN [facility] 2021-04-28 2021-04-28 Office [facility] .2.957.967 [id number] Univers 13:00:00 14:03:10 Visit Diann DEWEY 350.1.13.10 i ty [facility] [place] [facility] [phone] Ia dical NAL [address] [facility] 2021-04-22 2021-04-22 Outpatient Moustapha TRIMBLEShweta MITCHELL [facility] [id number] Univers 15:40:00 15:40:00 MITCHELL GARCIA kelsie [facility] 2021-04-22 2021-04-22 Outpatient Moustapha JOSEMITCHELL Rock [facility] [id number] Univers 15:40:00 15:40:00 MITCHELL GARCIA kelsie [facility] 2021-04-22 2021-04-22 Outpatient Moustapha JOSEMITCHELL Rock [facility] [id number] Univers 15:40:00 15:40:00 MITCHELL GARCIA [facility] 2021-04-18 2021-04-19 Emergency X [facility] ERT [id number] Univers 22:42:00 02:27:[address] [facility] 2021-04-18 2021-04-19 Emergency [facility] 1.2.840.114 [id number] Univers 22:42:00 02:27:00 Celia PALOMO 350.1.13.10 ity [facility] [place].2.[place].2.[place] [phone] [facility] [address] 2021-04-18 2021-04-19 Emergency [facility] [id number] Univers 22:42:00 02:27:[address] [facility] 2021-04-18 2021-04-18 Orders Doctor MILLAN 1.2.840.114 [id number] Univers 00:00:00 00:00:00 Only Unassigned, CARLOS 350.1.13.10 ity of [place] [facility] 4.2.7.2.686 Bernabe as [phone] [facility] [address] 2021-04-15 2021-04-15 [facility] 1.2.069.587 [id number] Univers 12:42:22 23:59:00 Encounter Clare PALOMO 350.1.13.10 ity of [place].2.[place] [phone] [facility] [address] 2021-04-15 2021-04-15 Outpatient R KUMAR [facility] [id number] Univers 10:00:00 10:33:44 SRIRAM ity o f [facility] 2021-04-15 2021-04-15 Office Kumar, [facility] 1.2.840.114 [id number] Univers 10:00:00 10:33:44 Visit Sriram [place] 350.1.13.10 ity [facility] [place].2.7.2.[place] [facility] [phone] Ia dical NAL [address] BUILDING 2021-04-15 2021-04-15 Outpatient R KUMAR [facility] [id number] Univers 10:00:00 10:33:44 SRIRAM de oliveira o [facility] 2021-04-15 2021-04-15 Outpatient R MAJOR [facility] [id number] Univers 00:00:00 00:00:00 W[address]IF[address]yy o f [facility] 2021-04-15 2021-04-15 Orders Doctor MILLAN 1.2.840.114 [id number] Univers 00:00:00 00:00:00 Only Unassigned, CARLOS 350.1.13.10 [facility] 4.2.7.2.686 Bernabe as [phone] [facility] [address] 2021-04-13 2021-04-13 Outpatient R TIN [facility] [id number] Univers 10:00:00 11:12:56 [facility] 2021-04-13 2021-04-13 Office Tin, [facility] 1.2.840.114 [id number] Univers 10:00:00 11:12:56 Visit [facility] 350.1.13.10 it y of [place] 4.2.7.2.686 Bernabe as HUMPHREY?BLEA [phone] Ia dical KNEY [address] MEDICAL OFFICE BUILDING 2021-04-13 2021-04-13 Outpatient R TIN [facility] [id number] Univers 10:00:00 11:12:[address] [facility] 2021-04-13 2021-04-13 Outpatient R CASTLE [facility] [id number] Univers 10:00:00 10:00:[address] [facility] 2021-04-13 2021-04-13 Outpatient R TIN [facility] [id number] Univers 10:00:00 10:00:[address] [facility] 2021-04-13 2021-04-13 Outpatient R CASTLE [facility] [id number] Univers 10:00:00 10:00:[address] [facility] 2021-04-12 2021-04-12 Nurse YANA Sanders 1.2.451.786 [id number] Univers 00:00:00 00:00:00 Triage Luis Alberto CARLOS 350.1.13.10 it y of [facility] 4.2.7.2.686 Bernabe as [phone] [address] 2021-04-07 2021-04-07 Telephone [facility] 1.2.744.002 [id number] Univers 00:00:00 00:00:00 Sriram [place] 350.1.13.10 ity of [place] [phone] Ia dical NAL [address] [place] [address] 2021-04-01 2021-04-01 Outpatient R KIA [facility] [id number] Univers 10:00:00 10:40:[address] [facility] 2021-04-01 2021-04-01 Office [facility] 1.2.840.114 [id number] Univers 10:00:00 10:40:52 Visit Silverio [place] 350.1.13.10 i ty of [place].2.[place] [id number] Ia dical NAL [address] [place] [address] 2021-03-30 2021-03-30 Telephone [facility] 1.2.840.114 [id number] Univers 00:00:00 00:00:00 [facility] 350.1.13.10 ity of [place] 4.2.7.2.686 Bernabe as HUMPHREY?BLEA [id number] Me dical [address] OFFICE [facility] 2021-03-30 2021-03-30 Telephone Jose [facility] 1.2.840.114 [id number] Univers 00:00:00 00:00:00 Mitchell [facility] 350.1.13.10 ity [facility] 4.2.7.2.686 Bernabe as HUMPHREY?ARLETTE [phone] [address] OFFICE [facility] 2021-03-29 2021-03-29 Outpatient MITCHELL TORRES [facility] [id number] Univers 08:00:00 09:38:08 JOSE MITCHELL kelsie [facility] 2021-03-29 2021-03-29 Outpatient MITCHELL TORRES [facility] [id number] Univers 08:00:00 09:38:08 MITCHELL GARCIA kelsie [facility] 2021-03-29 2021-03-29 Outpatient MITCHELL TORRES [facility] [id number] Univers 08:00:00 08:00:00 MITCHELL GARCIA [facility] 2021-03-29 2021-03-29 Orders Doctor MILLAN 1.2.840.114 [id number] Univers 00:00:00 00:00:00 Only Unassigned, CARLOS 350.1.13.10 ity of [facility] 4.2.7.2.686 Bernabe as [phone] [address] 2021-03-23 2021-03-23 Outpatient Moustapha HEATH [facility] [id number] Univers 15:40:00 16:06:08 SRIRMA de oliveira o f [facility] 2021-03-23 2021-03-23 Office [facility] 1.2.840.114 [id number] Univers 15:40:00 16:06:08 Visit Sriram [place] 350.1.13.10 ity [facility] [place].2.7.2.[place] [phone] Ia jamilahelinor [facility] [address] [facility] 2021-03-23 2021-03-23 Outpatient Moustapha HEATH [facility] [id number] Univers 16:00:00 16:00:00 SRIRAM de oliveira o f 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 Main [facility] 1.2.8 40.114 [id number] Univers 14:45:00 15:00:00 [facility] 350.1 .13.10 ity of [place].2.[place] [phone] [facility] [address] [facility] 2021-03-21 2021-03-21 Outpatient R [facility] [id number] Univers 14:45:00 14:45:00 [facility] 2021-03-21 2021-03-21 Outpatient R [facility] [id number] Univers 14:45:00 14:45:00 [facility] 2021-03-21 2021-03-21 Orders Doctor YANA 1.2.840.114 [id number] Univers 00:00:00 00:00:00 Only Unassigned, CARLOS 350.1.13.10 ity of [place] [facility] 4.2.7.2.686 Bernabe as [phone] [facility] [address] 2021-03-21 2021-03-21 Telephone HiramclemenciarussellGLENNA 1.2.840.114 [id number] Univers 00:00:00 00:00:00 [facility] 350.1.13.10 i ty of [facility] 4.2.7.2.686 [place] [phone] [facility] [address] 2021-03-20 2021-03-20 Nurse YANA Bautista 1.2.840.114 [id number] Univers 00:00:00 00:00:00 Triage Cielo CARLOS 350.1.13.10 it y of HOSPITAL 4.2.7.2.686 Bernabe as [id number] [facility] [address] 2021-03-18 2021-03-18 Emergency [facility] 1.2.840.114 [id number] Univers 17:02:00 22:45:00 Ananya [place] 350.1.13.10 ity of [place].2.686 [place] [phone] [facility] [address] 2021-03-18 2021-03-18 Emergency X [facility] ERT [id number] Univers 17:02:00 17:02:[address] [facility] 2021-03-18 2021-03-18 Emergency X [facility] ERT [id number] Univers 16:34:00 16:34:[address] [facility] 2021-03-18 2021-03-18 Outpatient R EPI [facility] [id number] Univers 15:00:00 16:15:[address] [facility] 2021-03-18 2021-03-18 Office [facility] 1.2.840.114 [id number] Univers 15:00:00 16:15:48 Visit [facility] 350.1.13.10 it y of [place] 4.2.7.2.686 Bernabe as HUMPHREY?BLEA [phone] [address] MEDICAL OFFICE BUILDING 2021-03-18 2021-03-18 Outpatient R [facility] ERT [id number] Univers 15:00:00 16:15:[address] [facility] 2021-03-18 2021-03-18 Outpatient R EPI [facility] [id number] Univers 15:00:00 16:15:48 [facility] 2021-03-18 2021-03-18 Transition JONO Galvan 1.2.840.114 [id number] Univers 00:00:00 00:00:00 of Care Nara MG 350.1.13.10 it y [facility] 4.2.7.2.[place] [id number] [facility] [address] 2021-03-12 2021-03-17 Inpatient X [facility] [id number] Univers 12:11:00 15:43:[facility] 2021-03-12 2021-03-17 Hospital AaronDamien nieto 1.2.840 .114 [id number] Univers 12:11:00 15:43:00 Encounter Soni Hunter cohina CARLOS 350.1.13.10 ity of [facility] 4.2.7.2.686 [place] [id number] [facility] [address] 2021-03-12 2021-03-17 Inpatient X [facility] [id number] Univers 12:11:00 15:43:00 [facility] ity [facility] 2021-03-17 2021-03-17 Nurse Esperanza Cronin 1.2.840.114 [id number] Univers 00:00:00 00:00:00 Triage CARLOS 350.1.13.10 it y of [facility] 4.2.7.2.686 Bernabe as [phone] [facility] [address] 2021-03-16 2021-03-16 Case Willian, UN[facility]ERS[facility] 1.2.840.114 [id number] Univers 00:00:00 00:00:00 Management Wissam Y HEALTH 350.1.13.10 ity of [place] [facility] 4.2.7.2.[place] [phone] [facility] [address] 2021-03-16 2021-03-16 Case Willian, [facility] 1.2.840.114 [id number] Univers 00:00:00 00:00:00 Management Wissam Y HEALTH 350.1.13.10 ity of [place] [facility] 4.2.7.2.[place] [id number] [facility] [address] 2021-03-11 2021-03-11 Transition JONO Galvan 1.2.840.114 [id number] Univers 00:00:00 00:00:00 of Care Nara CASEYY 350.1.13.10 it y of [place] 4.2.7.2.686 [place] [id number] [facility] [address] 2021-03-11 2021-03-11 Telephone [facility] 1.2.108.716 [id number] Univers 00:00:00 00:00:00 Sriram [place] 350.1.13.10 ity [facility] 4.2.7.2.[place] PROFESS[place] [phone] Ia dical NAL [address] [facility] 2021-03-07 2021-03-10 Outpatient X ANUJ GONZALES [facility] SAMI [id number] Univers 08:28:00 14:20:[address] [facility] 2021-03-07 2021-03-10 Emergency Hudson Wolfe 1.2.840. 114 [id number] Univers 08:28:00 14:20:00 Anuj Gonzales Leslie RENEE 350.1.13.1 0 ity [facility] 4.2.7.2.686 Bernabe as [id number] [facility] [address] 2021-03-07 2021-03-10 Outpatient X ANUJ GONZALES [facility] SAMI [id number] Univers 08:28:00 14:20:[address] [facility] 2021-03-09 2021-03-09 Surgery Misael Castro [facility] 1.2.840.114 [id number] Univers 09:36:00 10:16:00 David ABBASI 350.1.13.10 it y of [facility]ENC[facility] 4.2.7.2.686 Bernabe as BLDG [id number] [facility] [address] 2021-03-03 2021-03-03 Outpatient R HEMANTHAULTMAN [facility] [id number] Univers 14:00:00 14:44:[address] [facility] 2021-03-03 2021-03-03 Office [facility] 1.2.840.114 [id number] Univers 14:00:00 14:44:31 Visit Shantel [place] 350.1.13.10 ity [facility] 4.2.7.2.[place] [id number] Ia dical NAL [address] [facility] 2021-03-03 2021-03-03 Outpatient R BROOKS [facility] [id number] Univers 14:00:00 14:00:[address] [facility] 2021-02-08 2021-02-08 Office Sabina Barba [facility] 1.2.840.114 [id number] Univers 15:30:00 16:44:10 Visit KHLOE 350.1.13.10 it y of [place] [id number] [address] 2021-02-08 2021-02-08 Outpatient R SABINA BARBA [facility] [id number] Univers 15:30:00 16:44:[address] [facility] 2021-02-08 2021-02-08 Outpatient R SABINA BARBA [facility] [id number] Univers 15:30:00 16:44:[address] [facility] 2021-02-08 2021-02-08 Outpatient R SABINA BARBA [facility] [id number] Univers 15:30:00 15:30:[address] [facility] 2021-02-08 2021-02-08 Outpatient R SABINA BARBA [facility] [id number] Univers 15:30:00 15:30:00 [facility] 2021-02-03 2021-02-03 Case [facility] 1.2.840.114 [id number] Univers 00:00:00 00:00:00 Management Wondiful A HEALTH 350.1.13.10 ity of [place] 4.2.7.2.686 Bernabe as HUMPHREY?BLEA [phone] [facility] [address] MEDICAL OFFICE BUILDING 2021-02-01 2021-02-01 Office [facility] 1.2.840.114 [id number] Univers 15:30:00 16:58:42 Visit Ericka HEALTH 350.1.13.10 it y of [place] 4.2.7.2.686 Bernabe as HUMPHREY?BLEA [phone] [facility] [address] MEDICAL OFFICE BUILDING 2021-02-01 2021-02-01 Outpatient R MEKAAULTMAN [facility] [id number] Univers 15:30:00 16:58:[address] [facility] 2021-02-012021-02-01 Outpatient R MEKA [facility] [id number] Univers 16:30:00 16:30:[address] 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 Lab, [place] [facility] 1.2.840.1 14 [id number] Univers 16:02:42 16:17:42 [facility] 350.1.13.10 ity [facility] 4.2.7.2.686 Bernabe as HUMPHREY?BLEA [phone] [address] OFFICE [facility] 2021-02-01 2021-02-01 Outpatient R MEKA [facility] [id number] Univers 15:30:00 15:30:00 ERICKA [facility] 2021-01-31 2021-01-31 Outpatient R KUMARAULTMAN [facility] [id number] Univers 13:40:00 13:44:29 [facility] 2021-01-31 Out[facility] [id number] Univers 13:40:00 13:44:29 SRIRAM [facility] 2021-01-31 2021-01-31 [facility] [id number] Univers 13:18:52 13:44:29 [facility] [id number] [id number] [phone] [facility] 0[facility] 2021-01-31 2021-01-31 Outpatient [facility] [id number] Univers 13:40:00 13:40:00 SRIRAM y o [facility] 2021-01-31 2021-01-31 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, [place] - Wilfred [facility] [id number] Univers 10:03:00 10:18:00 [facility] [id number] [facility] [id number] Bernabe as HUMPHREY?BLEA [phone] [address] MEDICAL OFFICE [facility] 2021-01-31 2021-01-31 Office [facility] [id number] Univers 09:22:40 10:03:18 Visit Wondiful [facility] [id number] ity of [place] [id number] Bernabe as HUMPHREY?BLEA [phone] Ia sherif [place] [address] MEDICAL OFFICE [facility] 2021-01-31 2021-01-31 Outpatient [facility] [id number] Univers 09:30:00 09:30:00 WONDIFUL ity o f [facility] 2021-01-11 2021-01-11 Case [facility] [id number] Univers 00:00:00 00:00:00 Management Wondiful [facility] [id number] ity of [place] [id number] Bernabe as HUMPHREY?BLEA [phone] Ia sherif [place] [address] [place] MEDICAL OFFICE [facility] 2021-01-07 2021-01-07 Outpatient [facility] [id number] Univers 16:30:00 23:59:[address] 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 2021-01-07 2021-01-07 Office [facility] 1.2.840.114 [id number] Univers 15:34:25 16:37:00 Visit Wondiful A HEALTH 350.1.13.10 ity of [place] 4.2.7.2.686 Bernabe as HUMPHREY?BLEA [phone] [address] MEDICAL OFFICE [facility] 2021-01-05 2021-01-05 Telephone [facility] 1.2.840.114 [id number] Univers 00:00:00 00:00:00 Wondiful A HEALTH 350.1.13.10 ity of [place] 4.2.7.2.686 Bernabe as HMUPHREY?BLEA [phone] [address] OFFICE [facility] 2020-12-28 2020-12-28 Outpatient R KIA [facility] [id number] Univers 14:00:00 14:00:[address] [facility] 2020-12-27 2020-12-27 Outpatient R MAJOR [facility] [id number] Univers 13:14:51 23:59:00 WONDIF[address] ity o f [facility] 2020-12-27 2020-12-27 [facility] 1.2.378.940 [id number] Univers 13:00:00 23:59:00 Encounter Wondiful A [place] 350.1.13.10 ity of [place] 4.2.7.2.686 [place] [facility] [phone] [address] 2020-12-27 2020-12-27 Outpatient R [facility]MAN [facility] [id number] Univers 00:00:00 00:00:00 WONDIFUL ity o f [facility] 2020-12-13 2020-12-13 Telephone [facility] 1.2.840.114 [id number] Univers 00:00:00 00:00:00 Wondiful A Health 350.1.13.10 ity of [place] 4.2.7.2.686 Bernabe as Humphrey?Blea [phone] [address] Medical Office [facility] 2020-12-132020-12-13 Telephone Major DARYL 1.2.840.114 [id number] Univers 00:00:00 00:00:00 Wondiful A Health 350.1.13.10 ity of [place] 4.2.7.2.686 Bernabe as Humphrey?Blea [phone] [address] Office [facility] 2020-12-06 2020-12-06 Telephone Major DARYL 1.2.840.114 [id number] Univers 00:00:00 00:00:00 Wondiful A Health 350.1.13.10 ity of [place] 4.2.7.2.686 Bernabe as Humphrey?Blea [phone] [address] 2020-12-03 2020-12-03 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 Lab, Ang - Db [facility] 1.2.840.1 14 [id number] Univers 16:48:38 17:03:11 Visit Clare Gonsalves Health 350.1.13.1 0 ity of [place] 4.2.7.2.686 Bernabe as Humphrey?Blea [phone] [address] Office [facility] 2020-12-03 2020-12-03 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 Lab, Ang - Db [facility] 1.2.840.1 14 [id number] Univers 16:48:38 17:03:11 Visit Clare Gonsalves Health 350.1.13.1 0 ity of [place] 4.2.7.2.686 Bernabe as Humphrey?Blea [phone] [address] Office [facility] 2020-12-03 2020-12-03 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 Lab, Ang - Db [facility] 1.2.840.1 14 [id number] Univers 16:48:38 17:03:11 Visit Clare Gonsalves HEALTH 350.1.13.1 0 ity of [place] 4.2.7.2.686 Bernabe as HUMPHREY?BLEA [phone] [address] OFFICE [facility] 2020-12-03 2020-12-03 Office JAYNE GonsalvesMB 1.2.840.114 [id number] Univers 15:32:14 16:49:03 Visit Wondiful A Health 350.1.13.10 ity of [place] 4.2.7.2.686 Bernabe as Humphrey?Blea [phone] Ia sherif kney 044 [facility] Office [facility] 2020-12-03 2020-12-03 Outpatient R MAJOR [facility] [id number] Univers 15:45:00 15:45:[address] o f [facility] 2020-11-23 2020-11-23 Office [facility] 1.2.840.114 [id number] Univers 09:49:05 10:43:01 Visit Silverio [place] 350.1.13.10 i ty of [place] 4.2.7.2.686 [place] Profess[place] [phone] [address] 2020-11-23 2020-11-23 Outpatient R KIA [facility] [id number] Univers 10:00:00 10:00:[address] [facility] 2020-11-15 2020-11-15 Refisra [facility] 1.2.840.114 [id number] Univers 00:00:00 00:00:00 Qiangjun [place] 350.1.13.10 ity of [place] 4.2.7.2.686 [place] Profess[place] [phone] [address] 2020-11-15 2020-11-15 Refisra [facility] 1.2.840.114 [id number] Univers 00:00:00 00:00:00 Wondiful A [place] 350.1.13.10 ity of [place] 4.2.7.2.686 [place] Profess[place] [phone] [address] 2020-11-11 2020-11-11 Cali GonsalvesM[facility] 1.2.840.114 [id number] Univers 00:00:00 00:00:00 Wondiful A Health 350.1.13.10 ity of [place] 4.2.7.2.686 Bernabe as Professio [phone] [address] One 2020-10-05 2020-10-05 Refisra [facility] 1.2.840.114 [id number] Univers 00:00:00 00:00:00 Wondiful A Health 350.1.13.10 ity of [place] 4.2.7.2.686 Bernabe as Professio [phone] [address] 2020-10-04 2020-10-04 Orders Doctor YANA 1.2.840.114 [id number] Univers 00:00:00 00:00:00 Only Unassigned, CARLOS 350.1.13.10 ity of [place] [facility] 4.2.7.2.686 Bernabe as [phone] [address] 2020-09-24 2020-09-24 Refisra [facility] 1.2.840.114 [id number] Univers 00:00:00 00:00:00 Wondiful A Health 350.1.13.10 ity of [place] 4.2.7.2.686 Bernabe as Professio [phone] [facility] 044 [facility] 2020-09-09 2020-09-09 Cali Heath [facility] 1.2.840.114 [id number] Univers 00:00:00 00:00:00 Qiangjun [place] 350.1.13.10 ity of [place] 4.2.7.2.686 [place] Profess[place] [phone] [facility] 059 [facility] 2020-09-03 2020-09-03 Refisra [facility] 1.2.840.114 [id number] Univers 00:00:00 00:00:00 Wondiful A Health 350.1.13.10 ity of [place] 4.2.7.2.686 Bernabe as Professio [phone] [address] 2020-07-27 2020-07-27 Outpatient R KIA WYJENNI [facility] [id number] Univers 10:20:00 10:20:[address] [facility] 2020-07-27 2020-07-27 Office Kia WYJENNI 1.2.840.114 [id number] Univers 09:56:55 10:16:55 [facility] 350.1.13.10 i ty of [place] 4.2.7.2.686 [place] [phone] [facility] 059 [facility] 2020-07-13 2020-07-13 Orders Doctor YANA 1.2.840.114 [id number] Univers 00:00:00 00:00:00 Only Unassigned, CARLOS 350.1.13.10 [facility] 4.2.7.2.686 Bernabe as [phone] [address] 2020-07-08 2020-07-08 Refisra Gonsalves [facility] 1.2.840.114 [id number] Univers 00:00:00 00:00:00 Wondiful A Health 350.1.13.10 ity of [place] 4.2.7.2.686 Bernabe as Professio [phone] [facility] [address] Office Building One 2020-06-29 2020-06-29 Outpatient R [facility] [id number] Univers 10:30:00 10:30:[address] [facility] 2020-06-29 2020-06-29 Outpatient R KIAAULTMAN [facility] [id number] Univers 10:30:00 10:30:[address] [facility] 2020-06-07 2020-06-07 Office [facility] 1.2.840.114 [id number] Univers 13:02:14 13:29:23 Visit Sriram [place] 350.1.13.10 ity of [place] 4.2.7.2.686 [place] [phone] [facility] 059 [facility] 2020-06-07 2020-06-07 Outpatient R KUMARAULTMAN [facility] [id number] Univers 13:00:00 13:00:00 SRIRAM de oliveira o [facility] 2020-06-02 2020-06-02 Outpatient R DEE [facility] [id number] Univers 19:20:00 19:20:00 VIRI de oliveira o [facility] 2020-06-02 2020-06-02 Laboratory Lab, Adc Fam Pob I [facility] 1.2. 840.114 [id number] Univers 18:38:28 18:58:28 Only Jose [facility] 350.1.13.10 ity of [place] 4.2.7.2.686 [place] Professio [phone] [address] Office [facility] One 2020-06-02 2020-06-02 Letter Doctor YANA 1.2.840.114 [id number] Univers 00:00:00 00:00:00 (Out) Unassigned, CARLOS 350.1.13.10 ity of [place] HOSPITAL 4.2.7.2.686 Bernabe as [phone] [address] 2020-06-02 2020-06-02 Letter Doctor YANA 1.2.840.114 [id number] Univers 00:00:00 00:00:00 (Out) Unassigned, CARLOS 350.1.13.10 ity of [place] HOSPITAL 4.2.7.2.686 Bernabe as [phone] [address] 2020-06-02 2020-06-02 Letter Doctor YANA 1.2.840.114 [id number] Univers 00:00:00 00:00:00 (Out) Unassigned, CARLOS 350.1.13.10 ity of [place] HOSPITAL 4.2.7.2.686 Bernabe as [phone] [address] 2020-06-02 2020-06-02 Letter Doctor YANA 1.2.840.114 [id number] Univers 00:00:00 00:00:00 (Out) Unassigned, CARLOS 350.1.13.10 ity of [place] HOSPITAL 4.2.7.2.686 Bernabe as [phone] [facility] [address] 2020-05-20 2020-05-20 Telephone YANA Samano 1.2.219.221 [id number] Univers 00:00:00 00:00:00 Teri RENEE 350.1.13.10 ity of HOSPITAL 4.2.7.2.686 Bernabe as [phone] [facility] [address] 2020-05-20 2020-05-20 Telephone YANA Samano 1.2.436.763 [id number] 00:00:00 00:00:00 Teri RENEE 350.1.13.10 [facility] 42.7.2.686 [id number] [id number] 2020-04-28 2020-04-28 Refill [facility] 1.2.840.114 [id number] Univers 00:00:00 00:00:00 Silverio [place] 350.1.13.10 i ty of [place] 4.2.7.2.686 [place] [phone] Ia dicaz nal [address] [place] [address] 2020-04-27 2020-04-27 [facility] 1.2.840.114 [id number] Univers 11:25:29 11:45:29 Visit Silverio [place] 350.1.13.10 i ty of [place] [address].2.7.2.686 [place] [phone] [address] 2020-04-27 2020-04-27 Outpatient R [facility]AAULTMAN [facility] [id number] Univers 11:40:00 11:40:[address] [facility] 2020-04-26 2020-04-26 Outpatient R [facility]ITAULTMAN [facility] [id number] Univers 10:20:00 10:20:[address] [facility] 2020-04-14 2020-04-14 [facility] 1.2.694.459 [id number] Univers 09:18:24 23:59:00 Encounter Wondiful Lauryn Palomo 350.1.13.10 ity [facility] 4.2.7.2.686 [place] [phone] [address] 2020-04-14 2020-04-14 Outpatient R [facility]MAN [facility] [id number] Univers 00:00:00 00:00:00 WONDIFUL ity o f 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 10 ity of [place] 4.2.7.2.686 [place] [phone] Ia dical nal 353 [facility] 2020-03-31 2020-03-31 Outpatient R [facility] [id number] Univers 09:15:00 09:15:[address] ity o f [facility] 2020-03-30 2020-03-30 Laboratory Pacemaker/Icd, [facility] 1.2. 840.114 [id number] Univers 12:51:02 13:15:05 Only Sewdom, Silverio Dewey 350.1.13.10 ity of [place] 4.2.7.2.686 [place] [phone] [facility] 059 [facility] 2020-03-30 2020-03-30 Outpatient R [facility] [id number] Univers 13:00:00 13:00:[address] [facility] 2020-03-29 2020-03-29 Office [facility] 1.2.840.114 [id number] Univers 15:15:24 16:12:41 [facility] Lauryn [facility] 350.1.13.10 ity of [place] 4.2.7.2.686 Bernabe as Professio [phone] [facility] [address] [place] Office Building One 2020-03-29 2020-03-29 Outpatient R [facility] [id number] Univers 15:30:00 15:30:00 [address] ity o f [facility] 2020-03-03 2020-03-03 Orders Doctor YANA 1.2.840.114 [id number] Univers 00:00:00 00:00:00 Only Unassigned, CARLOS 350.1.13.10 ity of [place] [facility] 4.2.7.2.686 Bernabe as [phone] [address] 2020-02-03 2020-02-03 Outpatient R [facility] [id number] Univers 14:20:00 14:20:00 SRIRAM ity o f [facility] 2020-02-03 2020-02-03 Office [facility] 1.2.840.114 [id number] Univers 13:38:09 14:13:45 Visit Guillechaim Palomo 350.1.13.10 ity of [place] 4.2.7.2.686 [place] [phone] Ia dicaz nal [address] [place] [address] 2020-01-27 2020-01-27 Office [facility] 1.2.840.114 [id number] Univers 10:58:57 11:32:49 Visit Silverio De[place] 350.1.13.10 i ty of [place] 4.2.7.2.686 [place] [phone] [address] 2020-01-27 2020-01-27 Outpatient R [facility] [id number] Univers 11:00:00 11:00:[address] [facility] 2020-01-20 2020-01-20 Orders Doctor YANA 1.2.840.114 [id number] Univers 00:00:00 00:00:00 Only Unassigned, CARLOS 350.1.13.10 ity of [place] HOSPITAL 4.2.7.2.686 Bernabe as [phone] [address] 2020-01-20 2020-01-20 Telephone [facility] 1.2.200.065 [id number] Univers 00:00:00 00:00:00 Sriram Palomo 350.1.13.10 ity of [place] 4.2.7.2.686 [place] [phone] Ia dic[address] 2020-01-20 2020-01-20 Refill [facility] 1.2.840.114 [id number] Univers 00:00:00 00:00:00 Qiachaim Palomo 350.1.13.10 ity of [place] 4.2.7.2.686 [place] [phone] Ia dicaz nal [address] [place] [address] 2020-01-14 2020-01-14 Orders Doctor YANA 1.2.840.114 [id number] Univers 00:00:00 00:00:00 Only Unassigned, CARLOS 350.1.13.10 ity of [place] HOSPITAL 4.2.7.2.686 Bernabe as [phone] [address] 2020-01-12 2020-01-12 Outpatient R KUMAR, [facility] [id number] Univers 10:00:00 10:00:00 DIMITRIZECHARIAH itkelsie o f 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 2, Adc Lab [facility] 1.2.840.114 [id number] Univers 15:31:18 15:46:18 Visit Omole, Min Palomo 350.1.1 3.10 ity of [place] 4.2.7.2.686 [place] [phone] Ia dical nal 353 [facility] 2020-01-05 2020-01-05 Office krystle, [facility] 1.2.840.114 [id number] Univers 14:39:45 15:28:14 Visit Min Palomo 350.1.13.10 i ty of [place] 4.2.7.2.686 [place] [phone] Ia dicaz nal 059 [facility] 2020-01-05 2020-01-05 Outpatient R FREDDY, [facility] [id number] Univers 14:45:00 14:45:[address] [facility] 2020-01-05 2020-01-05 Orders Doctor MILLAN 1.2.840.114 [id number] Univers 00:00:00 00:00:00 Only Unassigned, CARLOS 350.1.13.10 ity of [place] HOSPITAL 4.2.7.2.686 Bernabe as [phone] [address] 2020-01-01 2020-01-01 Telephone Kumar, [facility] 1.2.581.471 [id number] Univers 00:00:00 00:00:00 Dimitrizechariah Dewey 350.1.13.10 ity of [place] 4.2.7.2.686 [place] [phone] Ia dicaz nal 059 [facility] 2019-12-19 2019-12-19 [facility] 1.2.840.114 [id number] Univers 11:30:41 12:16:36 Visit Nita Palomo 350.1.13.10 i ty of [place] 4.2.7.2.686 [place] [phone] Ia dical nal 085 [facility] 2019-12-19 2019-12-19 Outpatient R NITA DEGROOT [facility] 10 [id number] Univers 11:40:00 11:40:00 NITA DEGROOT i ty of [facility] 2019-12-19 2019-12-19 Telephone [facility] 1.2.951.404 [id number] Univers 00:00:00 00:00:00 Qialisazechariah Palomo 350.1.13.10 ity of [place] 4.2.7.2.686 [place] [phone] Ia dicaz nal 059 [facility] 2019-12-18 2019-12-18 Orders Doctor YANA 1.2.840.114 [id number] Univers 00:00:00 00:00:00 Only Unassigned, CARLOS 350.1.13.10 ity of [place] [facility] 4.2.7.2.686 Bernabe as [phone] [address] 2019-12-16 2019-12-16 Office [facility] 1.2.840.114 [id number] Univers 08:53:47 09:13:47 Visit Silverio [place] 350.1.13.10 i ty of [place] 4.2.7.2.686 [place] [phone] [facility] nal 059 [facility] 2019-12-16 2019-12-16 Outpatient R KIA [facility] [id number] Univers 09:00:00 09:00:[address] [facility] 2019-12-15 2019-12-15 Telephone [facility] 1.2.840.114 [id number] Univers 00:00:00 00:00:00 Wondiful A Health 350.1.13.10 ity of [place] 4.2.7.2.686 Bernabe as Professio [phone] [facility] [address] [place] Office [facility] 2019-12-15 2019-12-15 Case [facility] 1.2.840.114 [id number] Univers 00:00:00 00:00:00 Management Wondiful A Health 350.1.13.10 ity of [place] 4.2.7.2.686 Bernabe as Professio [phone] [facility] [address] [place] Office Building [facility] 2019-12-10 2019-12-10 Orders Doctor YANA 1.2.840.114 [id number] Univers 00:00:00 00:00:00 Only Unassigned, CARLOS 350.1.13.10 ity of [place] [facility] 4.2.7.2.686 Bernabe as [phone] [address] 2019-12-09 2019-12-09 Urgent Provider, [facility] 1.2.840.114 [id number] Univers 14:46:41 15:59:38 Care Yeni Mccormickthia [facility] 350.1.13.10 ity of [place] 4.2.7.2.686 Bernabe as Professio [phone] [address] Office [facility] 2019-12-09 2019-12-09 Outpatient R LUKE [facility] [id number] Univers 15:00:00 15:00:[address] [facility] 2019-12-04 2019-12-04 Office [facility] 1.2.840.114 [id number] Univers 12:39:51 13:39:11 Visit Wonjoshua A Health 350.1.13.10 ity of [place] 4.2.7.2.686 Bernabe as Professio [phone] [address] Office [facility] 2019-12-04 2019-12-04 Outpatient [facility] [id number] Univers 13:00:00 13:00:00 W[address]IF[address] ity o f [facility] 2019-12-02 2019-12-02 Laboratory Pacemaker/Icd, [facility] 1.2. 840.114 [id number] Univers 10:50:24 11:27:03 Only Sriram [place] 350.1.13.10 ity of [place] 4.2.7.2.686 [place] [phone] [facility] 059 [facility] 2019-12-02 2019-12-02 Outpatient R [facility] [id number] Univers 11:00:00 11:00:[address] [facility] 2019-12-02 2019-12-02 Telephone [facility] 1.2.840.114 [id number] Univers 00:00:00 00:00:00 Wondiful A Health 350.1.13.10 ity of [place] 4.2.7.2.686 Bernabe as Professio [phone] Ia dical nal [address] [place] Office [facility] One 2019-12-01 2019-12-01 Office [facility] 1.2.840.114 [id number] Univers 15:16:46 16:01:04 Visit Sriram Palomo 350.1.13.10 ity of [place] 4.2.7.2.686 [place] [phone] Ia dical nal 059 [facility] 2019-12-01 2019-12-01 Outpatient R KUMAR [facility] [id number] Univers 15:40:00 15:40:00 GUILLELISAZECHARIAH martyy o f [facility] 2019-12-01 2019-12-01 Transition Jono Mccurdy 1.2.840.114 [id number] Univers 00:00:00 00:00:00 of Care Jo L Mg 350.1.13.10 i ty of [place] 4.2.7.2.686 [place] [phone] [facility] [address] [place] 2019-11-26 2019-11-28 Hospital Kirt Thomason [facility] 1.2.840.1 14 [id number] Univers 14:42:00 15:06:00 Encounter Gab Servin 350.1.13.10 ity of [place] 4.2.7.2.686 [place] [phone] [facility] [address] 2019-11-26 2019-11-28 Inpatient X GAB SERVIN [facility] SAMI [id number] Univers 14:42:00 15:06:[address] [facility] 2019-11-26 2019-11-26 Telephone [facility] 1.2.840.114 [id number] Univers 00:00:00 00:00:00 Wondiful A Health 350.1.13.10 ity of [place] 4.2.7.2.686 Bernabe as Professio [phone] Ia dical nal [address] [place] [address] Building One 2019-11-24 2019-11-24 Telemedici [facility] 1.2.840.114 [id number] Univers 12:42:21 16:15:48 ne Visit Wondiful A Health 350.1.13.10 ity of [place] 4.2.7.2.686 Bernabe as Professio [phone] [facility] nal [address] [place] [address] One 2019-11-24 2019-11-24 Outpatient R [facility] [id number] Univers 15:30:00 15:30:00 WONDIF[address] ity o f [facility] 2019-11-24 2019-11-24 Transition Jono Henry 1.2.840.114 [id number] Univers 00:00:00 00:00:00 of Care Cielo Mg 350.1.13.10 it y of [place]2.7.2.[place] [phone] [facility] [address] [place] 2019-11-24 2019-11-24 Orders Doctor YANA 1.2.840.114 [id number] Univers 00:00:00 00:00:00 Only Unassigned, CARLOS 350.1.13.10 ity of [place] [facility] 4.2.7.2.686 Bernabe as [phone] [facility] [address] 2019-11-21 2019-11-21 Transition Jono Henry 1.2.840.114 [id number] Univers 00:00:00 00:00:00 of Care Cielo Mg 350.1.13.10 [place]2.[place] [phone] [facility] [address] 2019-11-08 2019-11-20 [facility] Fam Craig 1.2.840.114 [id number] Univers 18:18:00 16:52:00 Encounter Argenis Barnett Carlos 350.1.13.1 0 ity of [facility] 4.2.7.2 .686 [place] [phone] [facility] [address] 2019-11-08 2019-11-20 [facility] [id number] Univers 18:18:00 16:52:[address] [facility] 2019-11-20 2019-11-20 [facility] 1.2.840.114 [id number] Univers 00:00:00 00:00:00 Wondiful [facility] 350.1.13.10 ity of [place] 4.2.7.2.686 Bernabe as Professio [id number] [address] 2019-11-19 2019-11-19 [facility] [id number] Univers 14:30:00 14:30:00 [facility] 2019-11-19 [facility] 1.2.840.114 [id number] Univers 00:00:00 00:00:00 Wondiful [facility] 350.1.13.10 ity of [place] 4.2.7.2.686 Bernabe as Professio [id number] [address] 2019-11-17 2019-11-17 [facility] [id number] Univers 08:00:00 08:00:[address] [facility] 2019-11-14 2019-11-14 [facility] [id number] Univers 09:00:00 09:00:[address] [facility] 2019-11-10 2019-11-10 [facility] 1.2.840.114 [id number] Univers 00:00:00 00:00:00 Wondiful [facility] 350.1.13.10 ity of [place] 4.2.7.2.686 Bernabe as Professio [id number] [address] One 2019-11-08 2019-11-08 [facility] 1.2.840.114 [id number] Univers 00:00:00 00:00:00 Wondiful [facility] 350.1.13.10 ity of [place] 4.2.7.2.686 Bernabe as Professio [phone] [address] Office Building One 2019-11-05 2019-11-05 Hospital Kia [facility] 1.2.840.114 [id number] Univers 07:42:01 23:59:00 Encounter [facility] 350.1.13.10 [place]y [place] [phone] [address] ([facility]) 2019-11-05 2019-11-05 Outpatient R KIA [facility] [id number] Univers 00:00:00 00:00:[address] [facility] 2019-10-29 2019-10-29 [facility] Visit [facility] [facility] 1.2.840.114 [id number] Univers 00:00:00 00:00:00 Outreach Wondiful A Health 350.1.13.10 ity of [place] 4.2.7.2.686 Bernabe as Professio [phone] [address] Office Building One 2019-10-29 2019-10-29 Pre Visit Major [facility] 1.2.840.114 [id number] Univers 00:00:00 00:00:00 Outreach Wondiful A Health 350.1.13.10 ity of [place] 4.2.7.2.686 Bernabe as Professio [phone] [address] Office Building One 2019-10-28 2019-10-28 Office Majro [facility] 1.2.840.114 [id number] Univers 08:55:08 09:43:57 Visit Wondiful A Health 350.1.13.10 ity of [place] 4.2.7.2.686 Bernabe as Professio [phone] [address] Office Building [facility] 2019-10-28 2019-10-28 Outpatient R MAJOR [facility] [id number] Univers 09:30:00 09:30:00 WONDIFUL ity o f [facility] 2019-10-24 2019-10-24 Emergency Lukasz [facility] 1.2.034.635 [id number] Univers 19:34:00 23:51:00 Lubna S [place] 350.1.13.10 ity of [place].2.7.2.686 [place] [phone] [facility] 084 [place] 2019-10-24 2019-10-24 Emergency X LUKASZ, [facility] ERT [id number] Univers 19:34:00 23:51:[address] [facility] 2019-10-24 2019-10-24 Telephone [facility] 1.2.840.114 [id number] Univers 00:00:00 00:00:00 Wondiful A Health 350.1.13.10 ity of [place] 4.2.7.2.686 Bernabe as Professio [phone] [address] Office Building [facility] 2019-10-24 2019-10-24 Orders Doctor YANA 1.2.840.114 [id number] Univers 00:00:00 00:00:00 Only Unassigned, CARLOS 350.1.13.10 ity of [place] HOSPITAL 4.2.7.2.686 Bernabe as [phone] [facility] [address] [place] 2019-10-21 2019-10-21 Telephone Mary Kay Adam 1.2.411.689 [id number] Univers 00:00:00 00:00:00 Silverio [place] 350.1.13.10 it y of Hospital 4.2.7.2.686 Bernabe as [phone] [facility] 039 [place] 2019-10-09 2019-10-09 Telephone GLENNA Adam 1.2.840.114 [id number] Univers 00:00:00 00:00:00 Silverio Y HEALTH 350.1.13.10 i ty of CLINICS [place]2.7.2.[place] [phone] [facility] 059 [place] 2019-10-08 2019-10-08 Telephone [facility] 1.2.840.114 [id number] Univers 00:00:00 00:00:00 Wondiful A Health 350.1.13.10 ity of [place] 4.2.7.2.686 Bernabe as Professio [phone] [address] Office [facility] 2019-10-08 2019-10-08 Ely [facility] 1.2.736.389 [id number] Univers 00:00:00 00:00:00 Silverio [place] 350.1.13.10 i ty [place] 4.2.7.2.[place] [phone] [facility] 059 [facility] 2019-10-01 2019-10-01 Orders Doctor YANA 1.2.840.114 [id number] Univers 00:00:00 00:00:00 Only Unassigned, CARLOS 350.1.13.10 ity of [place] [facility] 4.2.7.2.686 Bernabe as [phone] [address] 2019-09-23 2019-09-23 Telephone [facility] 1.2.711.344 [id number] Univers 00:00:00 00:00:00 Silverio [place] 350.1.13.10 i ty of [place] 4.2.7.2.686 [place] Profess[place] [phone] [facility] 059 [facility] 2019-09-18 2019-09-18 Telephone [facility] 1.2.840.114 [id number] Univers 00:00:00 00:00:00 Wondiful A [place] 350.1.13.10 ity of [place] 4.2.7.2.686 [place] Profess[place] [phone] [facility] 044 [facility] 2019-09-17 2019-09-17 [facility] 1.2.007.394 [id number] Univers 00:00:00 00:00:00 Silverio [place] 350.1.13.10 i ty of [place] 4.2.7.2.686 [place] Profess[place] [phone] [place] [address] [facility] 2019-09-16 2019-09-16 Office [facility] 1.2.840.114 [id number] Univers 10:18:05 12:06:59 Visit Silverio [place] 350.1.13.10 i ty of [place] 4.2.7.2.686 [place] Profess[place] [phone] [place] [address] [facility] 2019-09-16 2019-09-16 Outpatient R [facility] [id number] Univers 10:40:00 10:40:[address] [facility] 2019-09-16 2019-09-16 Telephone [facility] 1.2.463.627 [id number] Univers 00:00:00 00:00:00 Dimitrizechariah [place] 350.1.13.10 ity of [place] 4.2.7.2.686 [place] Profess[place] [phone] [place] [address] [facility] 2019-09-15 2019-09-15 Laboratory Pc, Adc Echo Room 1 - [facility] 1 .2.840.114 [id number] Univers 09:42:44 11:10:38 Only Kumar Sriram Palomo 350.1.13.10 ity of [place] 4.2.7.2.686 [place] Profess[place] [phone] [address] 2019-09-15 2019-09-15 Outpatient R [facility] [id number] Univers 10:00:00 10:00:[address] [facility] 2019-09-10 2019-09-10 Telephone [facility] 1.2.840.114 [id number] Univers 00:00:00 00:00:00 Wondiful A Dewey 350.1.13.10 ity of [place] 4.2.7.2.686 [place] Profess[place] [phone] [address] 2019-09-08 2019-09-08 Office [facility] 1.2.840.114 [id number] Univers 13:10:22 13:44:08 Visit Sriram [place] 350.1.13.10 ity of [place] 4.2.7.2.686 [place] Profess[place] [phone] [address] 2019-09-08 2019-09-08 Outpatient R [facility] [id number] Univers 13:20:00 13:20:00 [address] f[address] o f [facility] 2019-08-25 2019-08-25 Refill [facility] 1.2.840.114 [id number] Univers 00:00:00 00:00:00 Sriram Health 350.1.13.10 i ty of [place] 4.2.7.2.686 Bernabe as Professio [phone] [address] Office [facility] One 2019-08-18 2019-08-18 Telephone Kumar, [facility] 1.2.176.758 [id number] Univers 00:00:00 00:00:00 Sriram Palomo 350.1.13.10 ity of [place].2.7.2.[place] Profess[place] [phone] Ia dicaz nal 059 [facility] 2019-08-15 2019-08-15 Nurse Visit, [facility] Nurse [facility] 1.2.840.1 14 [id number] Univers 09:12:28 21:57:47 Visit Dago Gross 350.1.13. 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 10 ity of [place] 4.2.7.2.[place] Profess[place] [phone] Ia dical nal 353 [facility] 2019-08-15 2019-08-15 Outpatient R [facility] [id number] Univers 09:30:00 09:30:[address] [facility] 2019-08-13 2019-08-13 Office [facility] 1.2.840.114 [id number] Univers 16:05:34 16:57:20 Visit Alexey Palomo 350.1.13.10 i ty of [place] 4.2.7.2.686 [place] Profess[place] [phone] Ia dical nal 220 [facility] 2019-08-13 2019-08-13 Outpatient R [facility]INAULTMAN [facility] [id number] Univers 16:30:00 16:30:[address] [facility] 2019-08-13 2019-08-13 Orders Doctor MILLAN 1.2.840.114 [id number] Univers 00:00:00 00:00:00 Only Unassigned, CARLOS 350.1.13.10 ity of [place] [facility] 4.2.7.2.686 Bernabe as [phone] [address] 2019-08-13 2019-08-13 Refill [facility] 1.2.840.114 [id number] Univers 00:00:00 00:00:00 Sriram [place] 350.1.13.10 ity of [place] 4.2.7.2.[place] Profess[place] [phone] [address] 2019-08-07 2019-08-07 Refill [facility] 1.2.840.114 [id number] Univers 00:00:00 00:00:00 Wondiful A Health 350.1.13.10 ity of [place] 4.2.7.2.686 Bernabe as Professio [phone] [address] 2019-08-04 2019-08-04 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 Pc, Adc Vascular Room 1 - [facility] 1.2.840.114 [id number] Univers 10:43:00 11:05:18 Visit Sriram Heath 350.1.13.10 ity of [place] 4.2.7.2.[place] [phone] [address] 2019-08-04 2019-08-04 Outpatient R [facility] [id number] Univers 11:00:00 11:00:[address] [facility] 2019-08-04 2019-08-04 Telephone [facility] 1.2.945.505 [id number] Univers 00:00:00 00:00:00 Sriram Palomo 350.1.13.10 ity of [place] 4.2.7.2.[place] [phone] [address] 2019-08-03 2019-08-03 Refisra GonsalvesMOUNT[facility] 1.2.840.114 [id number] Univers 00:00:00 00:00:00 Wondiful A Health 350.1.13.10 ity of [place] 4.2.7.2.686 Bernabe as Professio [phone] [address] 2019-07-30 2019-07-30 Office [facility] 1.2.840.114 [id number] Univers 13:54:46 14:40:55 Visit Guillelisazechariah [place] 350.1.13.10 ity of [place] 4.2.7.2.686 [place] Profess[place] [phone] [place] [address] [facility] 2019-07-30 2019-07-30 Outpatient R [facility] [id number] Univers 14:20:00 14:20:00 [address]IRAM ity o f [facility] 2019-07-30 2019-07-30 Orders Doctor YANA 1.2.840.114 [id number] Univers 00:00:00 00:00:00 Only Unassigned, CARLOS 350.1.13.10 it[place] HOSPITAL 4.2.7.2.686 Bernabe as [phone] [address] 2019-07-17 2019-07-17 Orders Doctor YANA 1.2.840.114 [id number] Univers 00:00:00 00:00:00 Only Unassigned, CARLOS 350.1.13.10 ity of [place] HOSPITAL 4.2.7.2.686 Bernabe as [phone] [address] 2019-07-16 2019-07-16 Telephone [facility] 1.2.840.114 [id number] Univers 00:00:00 00:00:00 Wondiful A Health 350.1.13.10 ity of [place] 4.2.7.2.686 Bernabe as Professio [phone] [facility] 044 [facility] One 2019-07-01 2019-07-01 Telephone [facility] 1.2.560.260 [id number] Univers 00:00:00 00:00:00 Guillelisazechariah [place] 350.1.13.10 ity of [place] 4.2.7.2.686 [place] Profess[place] [phone] [facility] 059 [facility] 2019-06-30 2019-06-30 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 [place], Adc Lab Main [facility] 1.2.8 40.114 [id number] Univers 07:52:57 08:07:57 Visit Kumar Sriram Palomo 350.1.13.10 ity of [place] 4.2.7.2.686 [place] Profess[place] [phone] [facility] 353 [facility] 2019-06-30 2019-06-30 Outpatient R KUMAR, [facility] [id number] Univers 08:00:00 08:00:00 SRIRAM de oliveira o f [facility] 2019-06-25 2019-06-25 Outpatient R KUMAR, [facility] [id number] Univers 09:40:00 09:40:00 SRIRAM fergusony o [facility] 2019-06-25 2019-06-25 Telemedici [facility] 1.2.840.114 [id number] Univers 08:37:50 08:57:50 ne Visit Sriram [place] 350.1.13.10 ity of [place] 4.2.7.2.686 [place] [phone] [facility] 059 [facility] 2019-05-28 2019-05-28 Refisra [facility] 1..840.114 [id number] Univers 00:00:00 00:00:00 Wondiful A Health 350.1.13.10 ity of [place] 4.2.7.2.686 Bernabe as Professio [phone] [facility] 044 [facility] 2019-05-25 2019-05-25 [facility] 1..840.114 [id number] Univers 00:00:00 00:00:00 Wondiful A Health 350.1.13.10 ity of [place] 4.2.7.2.686 Bernabe as Professio [phone] [address] 2019-05-21 2019-05-21 Outpatient R ALEXUS RAMOS [facility] [id number] Univers 10:00:00 10:00:[address] ity [facility] 2019-05-20 2019-05-20 Telemgisell HeathMOUNT[facility]IEW [facility] 1..840.114 [id number] Univers 13:50:59 14:10:59 ne Visit Dimitriunc [facility] [place] 350.1.13.10 ity of [place] 4.2.7.2.686 [place] [phone] Ia dical nal 059 [facility] 2019-05-20 2019-05-20 Outpatient R KUMAR, [facility] [id number] Univers 13:40:00 13:40:00 QIALISAZECHARIAH ity o f [facility] 2019-05-20 2019-05-20 Telephone [facility] 1.2.840.114 [id number] Univers 00:00:00 00:00:00 Wondiful A Health 350.1.13.10 ity of [place] 4.2.7.2.686 Bernabe as Professio [phone] Ia dical nal 044 [place] Office [facility] 2019-05-13 2019-05-13 Telephone [facility] 1.2.108.657 [id number] Univers 00:00:00 00:00:00 Qiangzechariah [place] 350.1.13.10 ity of [place] 4.2.7.2.686 [place] Profess[place] [phone] Ia dical nal 059 [facility] 2019-05-09 2019-05-09 Refill [place] [facility] 1.2.840.114 [id number] Univers 00:00:00 00:00:00 Wondiful A Health 350.1.13.10 ity of [place] 4.2.7.2.686 Bernabe as Professio [phone] Ia dical nal 044 [place] Office [facility] 2019-05-02 2019-05-02 Telephone [place] [facility] 1.2.840.114 [id number] Univers 00:00:00 00:00:00 Wondiful A Health 350.1.13.10 ity of [place] 4.2.7.2.686 Bernabe as Professio [phone] Ia dical nal 044 [place] Office [facility] 2019-05-02 2019-05-02 Telephone CastleM[facility] 1.2.248.867 [id number] Univers 00:00:00 00:00:00 Wentong [place] 350.1.13.10 i ty of [place] 4.2.7.2.[place] [phone] Ia dical nal 220 [facility] 2019-04-30 2019-04-30 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 2019-04-30 2019-04-30 Telephone [facility] 1.2.840.114 [id number] Univers 00:00:00 00:00:00 WonWalletKit A Streamweaver 350.1.13.10 ity of [place] 4.2.7.2.686 Bernabe as Professio [phone] Ia dical nal 044 [facility] One 2019-04-28 2019-04-28 Office [facility] 1.2.840.114 [id number] Univers 13:21:45 14:34:07 Visit Sriram Palomo 350.1.13.10 ity of [place] 4.2.7.2.686 [place] [phone] Ia dical nal 059 [facility] 2019-04-28 2019-04-28 Outpatient R KUMAR [facility] [id number] Univers 13:20:00 13:20:00 [address]AM ity o f 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 Luís Coleman Lab Main [facility] 1.2.8 40.114 [id number] Univers 16:15:01 16:30:01 Visit Alexey [place] 350.1.13.10 ity of [place] 4.2.7.2.[place] [phone] Ia dical sathya 353 [facility] 2019-04-09 2019-04-09 Office [facility] 1.2.840.114 [id number] Univers 15:08:31 15:58:05 Visit Alexey De[place] 350.1.13.10 i ty of [place] 4.2.7.2.[place] [phone] Ia dical nal 220 [facility] 2019-04-09 2019-04-09 Orders Doctor YANA 1.2.840.114 [id number] Univers 00:00:00 00:00:00 Only Unassigned, CARLOS 350.1.13.10 ity of [place] HOSPITAL 4.2.7.2.686 Bernabe as [phone] [address] 2019-03-14 2019-03-30 Nurse Visit, [facility] Nurse [facility] 1.2.840.1 14 [id number] Univers 08:39:08 18:06:53 Visit Dago Gross 350.1.13. 10 ity of [place] 4.2.7.2.686 [place] [phone] [facility] 059 [facility] 2019-03-28 2019-03-28 Telephone Major [facility] 1.2.840.114 [id number] Univers 00:00:00 00:00:00 Wondiful A Health 350.1.13.10 ity of [place] 4.2.7.2.686 Bernabe as Professio [phone] [facility] 044 [facility] 2019-03-24 2019-03-24 Telephone Major [facility] 1.2.840.114 [id number] Univers 00:00:00 00:00:00 Wondiful A Health 350.1.13.10 ity of [place] 4.2.7.2.686 Bernabe as Professio [phone] [facility] 044 [facility] 2019-03-14 2019-03-14 Outpatient R GINNY [facility] [id number] Univers 09:15:00 09:37:[address] [facility] 2019-03-14 2019-03-14 Orders Doctor YANA 1.2.840.114 [id number] Univers 00:00:00 00:00:00 Only Unassigned, CARLOS 350.1.13.10 ity of [place] HOSPITAL 4.2.7.2.686 Bernabe as [phone] [address] 2019-03-06 2019-03-06 Telephone [facility] 1.2.840.114 [id number] Univers 00:00:00 00:00:00 Wondiful A Health 350.1.13.10 ity of [place] 4.2.7.2.686 Bernabe as Professio [phone] [place] [address] Branch Office Building One 2019-01-27 2019-01-27 Outpatient R KUMAR, [facility] [id number] Univers 14:20:00 14:44:45 SRIRAM fergusony o f [facility] 2019-01-19 2019-01-19 Emergency X MARIO, [facility] ERT [id number] Univers 10:06:29 15:10:[address] [facility] 2019-01-06 2019-01-06 Outpatient R [facility]ORAULTMAN [facility] [id number] Univers 15:00:00 15:00:00 CLARE de oliveira o f [facility] 2018-12-11 2018-12-11 Outpatient R KENNATARANAULTMAN [facility] [id number] Univers 08:45:00 08:45:[address] de oliveira [facility] 2018-11-01 2018-11-01 Telephone Will[facility] 1.2.840.114 [id number] Univers 00:00:00 00:00:00 Wissam HEALTH 350.1.13.10 it y of [facility] 4.2.7.2.686 [facility] [phone] [facility] Primary & 059 [facility] 2018-10-31 2018-10-31 Telephone [facility] 1.2.840.114 [id number] Univers 00:00:00 00:00:00 Wondiful A Health 350.1.13.10 ity of [place] 4.2.7.2.686 Bernabe as Professio [phone] [place] [address] [address] Office Building One 2018-10-30 2018-10-30 Telephone SullivanM[facility] 1.2.536.094 [id number] Univers 00:00:00 00:00:00 Madeleine Rica HEALTH 350.1.13.10 ity of [place] 4.2.7.2.686 [facility] s [facility] [phone] [facility] Primary & 059 [facility] 2018-10-30 2018-10-30 Telephone [facility] 1.2.840.114 [id number] Univers 00:00:00 00:00:00 Wondiful A Health 350.1.13.10 ity of [place] 4.2.7.2.686 Bernabe as Professio [phone] Ia dical nal 044 [place] Office Building One 2018-10-29 2018-10-29 Office Cookei [facility] 1.2.840.114 [id number] Univers 13:11:56 13:52:23 Visit Emily Health 350.1.13.10 i ty of [place] 4.2.7.2.686 Bernabe as Professio [phone] Ia dical nal 044 [place] Office Building One 2018-10-28 2018-10-29 Office Fac, Adc Heart Failure Cardio [facility] 1.2.840.114 [id number] Univers 15:47:43 12:03:16 Visit Edgar Cortés [place] 350.1 .13.10 ity of [place] 4.2.7.2.686 [facility] Professio [phone] Ia dical nal 059 [facility] 2018-10-28 2018-10-28 Hospital Nate [facility] 1.2.840.114 [id number] Univers 16:46:06 23:59:00 Encounter Madeleine Palomo 350.1.13.10 ity of [place] 4.2.7.2.686 [facility] [place] [phone] [facility] 807 [place] 2018-10-28 2018-10-28 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10 it y of [place].2.7.2.686 [place] [phone] [facility] 2018-10-14 2018-10-14 Refill Freddy, [facility] 1.2.840.114 [id number] Univers 00:00:00 00:00:00 Min [place] 350.1.13.10 i ty of [place] 4.2.7.2.[place] [phone] [address] Building 2018-10-01 2018-10-01 Orders Doctor YANA 1.2.840.114 [id number] Univers 00:00:00 00:00:00 Only Unassigned, CARLOS 350.1.13.10 ity of [place] [facility] 4.2.7.2.686 Bernabe as [phone] [facility] [address] 2018-09-26 2018-09-26 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 840.114 [id number] Univers 13:45:07 15:25:16 Visit Major Clare [facility] 350.1.13.1 0 ity of [place] 4.2.7.2.686 Bernabe as Professio [phone] [address] Office Building One 2018-09-26 2018-09-26 Telephone Fac, [facility] 1.2.840.114 [id number] Univers 00:00:00 00:00:00 Heart HEALTH 350.1.13.10 it y of Failure [place] 4.2.7.2.686 [place] [phone] [facility] 2018-09-10 2018-09-10 Office Major [facility] 1.2.840.114 [id number] Univers 12:36:16 13:37:40 Visit Josianeful A Health 350.1.13.10 ity of [place] 4.2.7.2.686 Bernabe as Professio [phone] [address] Office Building One 2018-09-02 2018-09-02 Orders Doctor YANA 1.2.840.114 [id number] Univers 00:00:00 00:00:00 Only Unassigned, CARLOS 350.1.13.10 ity of [place] HOSPITAL 4.2.7.2.686 Bernabe as [phone] [address] Results Test Description Test Time Test Comments Results Result Comments Source POCT GLUCOSE (AUTOMATED) 2022-02-19 18:34:13 Test Item Value Reference Range Interpretation Comme nts POCT GLU (test code = 4959889946) 354 mg/dL 70-110 H Lab Interpretation (test code = 40041-4) [facility] 14:51:34 Test Item Value Reference Range Interpretation Comments POCT GLU (test code = 8985473557) 158 mg/dL 70-110 H Lab Interpretation (test code = Abnormal 62715-3) [facility] 07:09:11 Test Item Value Reference Range Interpretation Comments POCT GLU (test code = 0909635154) 109 mg/dL 70-110 Lab Interpretation (test code = Normal 85475-0) [facility] 06:15:00 Test Item Value Reference Range Interpretation Comments POCT GLU (test code = 8985030338) 56 mg/dL 70-110 L Lab Interpretation (test code = Abnormal 77920-7) [facility] 03:41:03 Test Item Value Reference Range Interpretation Comments POCT GLU (test code = 7484279337) 197 mg/dL 70-110 H Lab Interpretation (test code = Abnormal 30294-2) [facility]18 23:17:16 Test Item Value Reference Range Interpretation Comments POCT GLU (test code = 1600688955) 240 mg/dL 70-110 H Lab Interpretation (test code = Abnormal 03915-6) [facility]23 Test Item Value Reference Range Interpretation Comments POCT GLU (test code = 1961608822) 274 mg/dL 70-110 H Lab Interpretation (test code = Abnormal 87621-8) [facility] 18:24:18 Test Item Value Reference Range Interpretation Comments POCT GLU (test code = 1092992054) 92 mg/dL 70-110 Lab Interpretation (test code = Normal 52543-9) [facility]Total Cholesterol, Triglycerides, HDL) - [id number] 12:27:34 Test Item Value Reference Range Interpretation Comments CHOL (test code = 146 mg/dL 120-200 9242039064) HDL (test code = 54 mg/dL See_Comment [Automated message] 9928338727) The system Collect generated this result transmit luis miguel reference range : >=50. The refer ence range was not u sed to interpret th is result as normal/abnormal . HDLC RATIO (test code = See_Comment [Au tomated message] 2977900609) The system Collect generated this result transmit luis miguel reference range : <=4.5. The refe rence range was not u sed to interpret th is result as normal/abnormal . TRIG (test code = 113 mg/dL 30-170 0494113446) LDL CHOL (test code = 69 mg/dL See_Comment [Auto mated message] 74701-8) The system Collect generated this result transmit luis miguel reference range : <=160. The refe rence range was not u sed to interpret th is result as normal/abnormal . VLDL (test code = 23 mg/dL 5-60 2927443468) Lab Interpretation (test Normal code = 98024-5) [id number] 12:27:34 Test Item Value Reference Range Interpretation Comments NT-proBNP (test code 35147 pg/mL See_Comment H [Autom ated = 2773964984) message] The system which generated this result transmitted reference range : <=450. The reference range was not used to interpret this result as normal/abnormal . SEN (test code = ESN) Biotin has been reported to cause a negative bias, interpret results relative to patient's use of biotin. Lab Interpretation Abnormal (test code = 46809-4) [facility] (NA, K, CL, CO2, GLUCOSE, BUN, CREATININE, CA)2022-02-18 12:27:14 Test Item Value Reference Range Interpretation Comments NA (test code = 137 mmol/L 135-145 8502479023) K (test code = 4.0 mmol/L 3.5-5.0 7265300552) CL (test code = 104 mmol/L 98-108 0244861955) CO2 TOTAL (test code = 25 mmol/L 23-31 3785385852) AGAP (test code = 2-16 5369556253) BUN (test code = 62 mg/dL 7-23 H 8953315726) GLUCOSE (test code = 90 mg/dL 70-110 9182748453) CREATININE (test code = 2.02 mg/dL 0.50-1.04 H 1174893450) CALCIUM (test code = 8.3 mg/dL 8.6-10.6 L 8869217787) eGFR (test code = mL/min/1.73m2 6504752005) SEN (test code = SEN) Association of [...] tests). Lab Interpretation Abnormal (test code = 68451-7) [facility] WITH [id number] 11:30:43 Test Item Value Reference Range Interpretation [...] RDW-SD (test code = 46.4 fL 39.0-49.9 46177-5) RDW-CV (test code = 13.2 % 12.0-15.5 788-0) PLT (test code = See_Comment [Automated 777-3) message] The sy stem which generated this result transmitted reference range : 166 - 358 10*3/ ?L. The reference r beltran was not used to interpret this result as normal/abnormal . MPV (test code = 13.0 fL 9.5-12.9 H 09409-0) NRBC/100 WBC (test See_Comment [Automat ed code = 3239655458) message] The system which generated this result transmitted reference range : 0.0 - 10.0 /100 WBCs. The refer ence range was not u sed to interpret th is result as normal/abnormal . NRBC x10^3 (test code See_Comment [Auto mated = 5924184203) message] The s ystem which generated this result transmitted reference range : 10*3/?L. The reference range was not used to interpret this result as normal/abnormal . GRAN MAT (NEUT) % 58.4 % (test code = 770-8) IMM GRAN % (test code 0.30 % = 2207770665) LYMPH % (test code = 27.5 % 736-9) MONO % (test code = 9.3 % 5905-5) EOS % (test code = 4.2 % 713-8) BASO % (test code = 0.3 % 706-2) GRAN MAT x10^3(ANC) 3.71 10*3/uL 1.88-7.09 (test code = 7027968175) IMM GRAN x10^3 (test 0.00-0.06 code = 1315420317) LYMPH x10^3 (test code 1.75 10*3/uL 1.32-3.29 = 731-0) MONO x10^3 (test code 0.59 10*3/uL 0.33-0.92 = 742-7) EOS x10^3 (test code = 0.27 10*3/uL 0.03-0.39 711-2) BASO x10^3 (test code 0.01-0.07 = 704-7) Lab Interpretation Abnormal (test code = 78077-5) [facility] GLUCOSE (AUTOMATED)2022-02-18 02:39:08 Test Item Value Reference Range Interpretation Comments POCT GLU (test code = 2848429412) 196 mg/dL 70-110 H Lab Interpretation (test code = Abnormal 15918-2) [facility] GLUCOSE (AUTOMATED)2022-02-17 23:16:54 Test Item Value Reference Range Interpretation Comments POCT GLU (test code = 3753898955) 140 mg/dL 70-110 H Lab Interpretation (test code = Abnormal 92924-1) [facility] 19:44:53 Test Item Value Reference Range Interpretation Comments Height (test code = in 7062289204) Weight (test code = lbs 3459626217) Systolic BP (test code = mmHg 5219618424) Diastolic BP (test code mmHg = 3278455044) Heart Rate (test code = bpm 9674628576) BSA (test code = 1.81 m2 2813607183) Ao root diam (test code 3.30 cm = 4448424485) Aortic root (test code = 3.3 cm 0279789437) Ao root annulus (test 3.3 cm code = 3166662974) LVOT diameter (test code 1.89 cm = 5448567297) LVOT area (test code = 2.80 cm2 8996285808) LAV(MOD-sp4) (test code 52.90 mL = 2868059799) E wave decelartion time 0.17 s (test code = 8807854777) MV stenosis pressure 1/2 51.3 ms time (test code = 9772459133) MV Peak E Mily (test code 95.2 cm/s = 2122050383) MV Peak A Mily (test code 61.8 cm/s = 9955479703) E/A ratio (test code = ratio 3030460195) MV Prop V (test code = 23.30 cm/s 9574921408) MV E/e' septal (test 7.8 cm/s code = 2102375559) TR Peak Mily (test code = 310.8 cm/s 8433882364) Triscuspid Valve mmHg Regurgitation Peak Gradient (test code = 4882823382) Tapse (test code = 1.99 cm 6906914958) LVOT stroke volume (test 40.40 cm3 code = 2133518986) LVOT peak mily (test code 67.8 cm/s = 9330546753) LVOT mn grad (test code mmHg = 2690566516) AV LVOT peak gradient mmHg (test code = 0961839619) LVOT peak VTI (test code 14.4 cm = 5131004512) LV V1 mean (test code = 45.30 cm/s 0211854435) MR max PG (test code = 65.40 mm[Hg] 0080613590) MR max mily (test code = 404.30 cm/s 1721558197) Mr max mily (test code = 404.3 m/s 9991718645) LVIDD (test code = 6.30 cm 9515714068) Left Ventricular End 202.4 mL Diastolic Volume by Teichholz Method (test code = 3012267) IVS (test code = 0.94 cm 8306697230) Interventricular Septum 0.94 cm Diastolic Thickness by 2D (test code = 6073533) LVPWD (test code = 0.94 cm 1287580501) PW (test code = 0.94 cm 0.6-1.4 5871609357) EF(Teich) (test code = 19.10 % 5071065009) LVIDS (test code = 5.80 cm 7423000200) Left Ventricular End 163.8 mL Systolic Volume by Teichholz Method (test code = 2280306) FS (test code = 9 % 1571945257) EF - 2D (test code = 19.10 % 95258244) LA size (test code = 3.5 cm 9984027854) Radiology Study observation (narrative) (test code = 20102-0) SEN (test code = SEN) Table formatting [...] mL of Lumason ultrasound enhancing agent used. [facility] GLUCOSE (AUTOMATED)2022-02-17 18:19:03 Test Item Value Reference Range Interpretation Comments POCT GLU (test code = 2683296590) 160 mg/dL 70-110 H Lab Interpretation (test code = Abnormal 34645-5) [facility] GLUCOSE (AUTOMATED)2022-02-17 14:06:55 Test Item Value Reference Range Interpretation Comments POCT GLU (test code = 2795602612) 101 mg/dL 70-110 Lab Interpretation (test code = Normal 02089-3) [facility] GLUCOSE (AUTOMATED)2022-02-17 03:58:48 Test Item Value Reference Range Interpretation Comments POCT GLU (test code = 4435981624) 278 mg/dL 70-110 H Lab Interpretation (test code = Abnormal 97822-4) [facility] GLUCOSE (AUTOMATED)2022-02-17 03:21:46 Test Item Value Reference Range Interpretation Comments POCT GLU (test code = 5582198235) 279 mg/dL 70-110 H Lab Interpretation (test code = Abnormal 40318-0) [facility]A1C)2022-02-17 01:58:04 Test Item Value Reference Range Interpretation Comments HGB A1C (test code = 10.0 % 4.0-5.7 H 4548-4) SEN (test code = SEN) Reference RangesNormal: <5.7%Prediabetes: 5.7 - 6.4%Diabetes: > 6.5% Lab Interpretation (test Abnormal code = 83476-9) [facility] [id number] 17:30:57 Test Item Value Reference Interpretation Comments Range TROPONIN I (test 0.028 ng/mL See_Comment [Automated code = 7518716396) message] The system which generated this result [...] biotin. Lab Interpretation Normal (test code = 35143-9) [facility] [id number] 17:27:54 Test Item Value Reference Range Interpretation Comments NT-proBNP (test code 06004 pg/mL See_Comment H [Autom ated = 8722438022) message] The system which generated this result transmitted reference range : <=450. The reference range was not used to interpret this result as normal/abnormal . SEN (test code = SEN) Biotin has been reported to cause a negative bias, interpret results relative to patient's use of biotin. Lab Interpretation Abnormal (test code = 11841-6) [facility] (NA, K, CL, CO2, GLUCOSE, BUN, CREATININE, CA)2022-02-16 17:19:15 Test Item Value Reference Range Interpretation Comments NA (test code = 135 mmol/L 135-145 1126218376) K (test code = 4.7 mmol/L 3.5-5.0 0373456652) CL (test code = 104 mmol/L 98-108 1844210772) CO2 TOTAL (test code = 23 mmol/L 23-31 4200146452) AGAP (test code = 2-16 4526976854) BUN (test code = 58 mg/dL 7-23 H 4722699589) GLUCOSE (test code = 260 mg/dL 70-110 H 3919501817) CREATININE (test code = 1.78 mg/dL 0.50-1.04 H 2984653086) CALCIUM (test code = 8.2 mg/dL 8.6-10.6 L 0945164065) eGFR (test code = mL/min/1.73m2 6596678992) SEN (test code = SEN) Association of [...] tests). Lab Interpretation Abnormal (test code = 30668-1) [facility]77689[facility] (ALB,T.PRO,BILI T,BU/BC,ALT,AST,ALK PHOS)2022-02-16 17:19:15 Test Item Value Reference Range Interpretation Comments TOTAL BILI (test code = 9985827006) 0.4 mg/dL 0.1-1.1 BILI UNCON (test code = 7809254049) 0.3 mg/dL 0.1-1.1 BILI CONJ (test code = 4242938717) 0.0 mg/dL 0.0-0.3 T PROTEIN (test code = 5200930668) 6.8 g/dL 6.3-8.2 ALBUMIN (test code = 0254878989) 3.8 g/dL 3.5-5.0 ALK PHOS (test code = 1131640117) 146 U/L 34-122 H ALTv (test code = 1742-6) 29 U/L 5-35 AST(SGOT) (test code = 1941859017) 28 U/L 13-40 Lab Interpretation (test code = Abnormal 64123-6) [facility]2022-[facility]29 17:19:15 Test Item Value Reference Range Interpretation Comments LIPASE (test code = 3770203639) 46 U/L 0-220 Lab Interpretation (test code = Normal 71830-3) [facility] WITH [id number] 17:12:53 Test Item Value Reference Range Interpretation Comments WBC (test code = See_Comment [Automated 6690-2) message] The sy stem which generated this result transmitted reference range : 4.30 - 11.10 10*3/?L. The reference range was not used to interpret this result as normal/abnormal . RBC (test code = See_Comment L [Automated 039-8) message] The sy stem which generated this [...] RDW-SD (test code = 47.8 fL 39.0-49.9 97460-3) RDW-CV (test code = 13.5 % 12.0-15.5 788-0) PLT (test code = See_Comment [Automated 777-3) message] The sy stem which generated this result transmitted reference range : 166 - 358 10*3/ ?L. The reference r beltran was not used to interpret this result as normal/abnormal . MPV (test code = 12.9 fL 9.5-12.9 75052-1) NRBC/100 WBC (test See_Comment [Automat ed code = 2985316858) message] The system which generated this result transmitted reference range : 0.0 - 10.0 /100 WBCs. The refer ence range was not u sed to interpret th is result as normal/abnormal . NRBC x10^3 (test code See_Comment [Auto mated = 4680199179) message] The s ystem which generated this result transmitted reference range : 10*3/?L. The reference range was not used to interpret this result as normal/abnormal . GRAN MAT (NEUT) % 75.4 % (test code = 770-8) IMM GRAN % (test code 0.20 % = 9385001373) LYMPH % (test code = 14.9 % 736-9) MONO % (test code = 7.7 % 5905-5) EOS % (test code = 1.6 % 713-8) BASO % (test code = 0.2 % 706-2) GRAN MAT x10^3(ANC) 6.77 10*3/uL 1.88-7.09 (test code = 8464569459) IMM GRAN x10^3 (test 0.00-0.06 code = 0528118702) LYMPH x10^3 (test code 1.34 10*3/uL 1.32-3.29 = 731-0) MONO x10^3 (test code 0.69 10*3/uL 0.33-0.92 = 742-7) EOS x10^3 (test code = 0.14 10*3/uL 0.03-0.39 711-2) BASO x10^3 (test code 0.01-0.07 = 704-7) Lab Interpretation Abnormal (test code = 99526-2) [facility] HEMOGLOBIN A1C [id number] 15:15:00 Test Item Value Reference Range Interpretation Comments POCT HBA1C (test code = 4548-4) 7.6 % 4-6 A Lab Interpretation (test code = Abnormal 43028-3) [facility] HEMOGLOBIN A1C [id number] 15:15:00 Test Item Value Reference Range Interpretation Comments POCT HBA1C (test code = 4548-4) 7.6 % 4-6 A Lab Interpretation (test code = Abnormal 65160-7) [facility]
[2022-08-02] MEDS ORDERED: HYDROCODONE/APAP 5/325 MG TAB ONE (18:46)
[2022-08-02 19:07] LABS: Absolute Lymphocytes (CBC) 1.5 K/uL (0.7-4.9); Hematocrit 29.4 % (36.0-45.0); Lymphocytes % 22.7 % (15.3-44.8); MCV 94.7 fL (80-100); MPV 10.7 fL (7.6-11.3); RBC Red Blood Cell Count 3.11 M/uL (3.86-4.86)
[2022-08-02 19:14] LABS: Potassium 3.8 mEq/L (3.5-5.1)
--- NOTE | 2022-08-02 19:45 | RAD REPORT ---
EXAM DESCRIPTION: CT - C Spine Wo Con - 08/02/2022 7:13 pm CLINICAL HISTORY: Pain COMPARISON: 06/16/2022. TECHNIQUE: Axial [address] images of the cervical spine were obtained with sagittal and coronal reconstruction images generated and reviewed. All CT scans are performed using dose optimization technique as appropriate and may include automated exposure control or mA/KV adjustment according to patient size. FINDINGS: Cervical body height and alignment are normal. No disk space narrowing. No fracture or acute bony abnormality. Multilevel degenerative changes without disc space narrowing. Mild pannus at C1 to articulation. Mult ilevel facet arthropathy contributing to mild bilateral neural foraminal narrowing at C4-5. No paraspinal mass or hematoma. Interstitial prominence at the lung apices bilaterally, could relate to volume overload or edema. IMPRESSION: No acute cervical spine fracture or subluxation. Degenerative changes as above. Interstitial prominence at the lung apices bilaterally, could relate to volume overload or edema.
[2022-08-02 20:04] LABS: Troponin High Sensitivity 91.1 pg/mL (<58.9)
--- NOTE | 2022-08-02 20:14 | RAD REPORT ---
EXAM DESCRIPTION: RADChest Single View08/02/2022 7:48 pm CLINICAL HISTORY: right arm pain COMPARISON: Chest Single View dated 07/26/2022; Chest Single View dated 07/19/2022; Chest Single View d ated 07/15/2022; Chest Single View dated 07/04/2022 TECHNIQUE: Portable AP view of the chest. FINDINGS: Central interstitial prominence and bibasilar fluffy opacities, new since the prior exam. No pneumothorax or effusion. The cardiomediastinal contours are unremarkable. Left chest wall pacer /AICD, stable. IMPRESSION: Findings suggesting central venous congestion/CHF or fluid overload. No evidence of foca l airspace opacity.
--- NOTE | 2022-08-02 20:41 | EDPHYS ---
Physician Documentation [facility] Name: Teena Simpson Age: 77 yrs Sex: Female : 1945 Arrival Date: 08/02/2022 Time: 18:06 Bed 19 Private MD: ED Physician Jody Sampson HPI: 08/02 18:30 This 77 yrs old Female presents to ER via Wheelchair with complaints of Neck cp Pain, >24Hrs Old, Arm Pain. 18:30 The patient or guardian complains of pain, that is acute. The symptoms are located on cp the right side of neck. 18:30 Onset: The symptoms/episode began/occurred this morning. Associated signs and symptoms: cp Pertinent positives: right arm pain, Pertinent negatives: fever, numbness, tingling, vomiting, chest pain, abdominal pain. Severity of symptoms: in the emergency department the symptoms are unchanged, despite home interventions. Historical: - Allergies: 18:14 Augmentin; mb9 18:14 Cipro; mb9 18:14 Keppra; mb9 - Home Meds: 18:14 Eliquis 5 mg Oral tablet 1 tab 2 times per day [Active]; mb9 19:00 atorvastatin 40 mg Oral tab 1 tab every day at bedtime [Active]; furosemide 40 mg Oral eh3 tab 1 tab daily [Active]; metoprolol succinate 50 mg Oral Tablet, Extended Release 24 hr 1 tab 2 times per day [Active]; Novolin N NPH U-100 Insulin 100 unit/mL Sub-Q tab 20 units every evening [Active]; Phenytoin 100mg Oral 1 tab 2 times per day [Active]; - PMHx: 18:14 Seizures; Anxiety; CHF; High Cholesterol; Hypertension; Diabetes - IDDM; Kidney failure mb9 stage 4; Low HR; Myocardial infarction; neuropathy; Atrial Fib; - PSHx: 18:14 Appendectomy; Hemorrhoidectomy; Pacemaker-Defib; mb9 - Immunization history:: Adult Immunizations up to date. - Social history:: Smoking status: Patient denies any tobacco usage or history of. ROS: 18:35 Constitutional: Negative for body aches, chills, fever, poor PO intake. cp 18:35 Eyes: Negative for injury, pain, redness, and discharge. cp 18:35 Neck: Positive for pain with movement, pain at rest, of the right side of neck, Negative for injury or acute deformity. 18:35 Cardiovascular: Negative for chest pain. 18:35 Respiratory: Negative for cough, shortness of breath, wheezing. 18:35 Back: Negative for injury or acute deformity, decreased range of motion. 18:35 MS/extremity: Positive for pain, of the right hand and right arm, Negative for injury or acute deformity, decreased range of motion. 18:35 Skin: Negative for cellulitis, rash. 18:35 Neuro: Negative for altered mental status, headache, numbness, tingling, weakness. 18:35 All other systems are negative. Exam: 18:40 Constitutional: The patient appears in no acute distress, alert, awake, cp non-diaphoretic, non-toxic, well developed, well nourished. 18:40 Head/Face: Normocephalic, atraumatic. cp 18:40 Eyes: Periorbital structures: appear normal, Conjunctiva: normal, no exudate, no injection, Sclera: no appreciated abnormality, Lids and lashes: appear normal, bilaterally. 18:40 ENT: External ear(s): Nose: is normal, Mouth: Lips: moist, Oral mucosa: pink and intact, moist, Posterior pharynx: is normal, airway is patent, no erythema, no exudate. 18:40 Neck: ROM/movement: pain, that is mild, with any movement, limited range of motion, is not appreciated, nuchal rigidity, is not appreciated. 18:40 Chest/axilla: Inspection: normal. 18:40 Cardiovascular: Rate: normal, Rhythm: regular, Edema: is not appreciated, JVD: is not appreciated. 18:40 Respiratory: the patient does not display signs of respiratory distress, Respirations: normal, no use of accessory muscles, no retractions, labored breathing, is not present, Breath sounds: are clear throughout, no decreased breath sounds, no stridor, no wheezing. 18:40 Abdomen/GI: Inspection: abdomen appears normal, Palpation: abdomen is soft and non-tender, in all quadrants. 18:40 Back: pain, that is moderate, of the right trapezius. 18:40 Musculoskeletal/extremity: Extremities: grossly normal except: noted in the right arm: pain, ROM: intact in all extremities, Pulses: noted to be 2+ in the right radial artery and left radial artery. 18:40 Skin: no rash present. 18:40 Neuro: Orientation: to person, place \T\ time. Mentation: is normal, Motor: moves all fours, strength is normal, Sensation: no obvious gross deficits. Vital Signs: 18:12 BP 120 / 72; Pulse 88; Resp 18; Temp 98.2; Pulse Ox 98% ; Weight 78.47 kg; Height 5 ft. mb9 0 in. ; Pain 10/10; 19:00 BP 135 / 72; Pulse 89; Resp 16; Pulse Ox 97% on R/A; eh3 21:42 BP 125 / 65; Pulse 86; Resp 16; Temp 98; Pulse Ox 99% on R/A; rv 18:12 Body Mass Index 33.79 (78.47 kg, 152.4 cm) mb9 18:12 Pain Scale: Adult mb9 MDM: 18:16 Patient medically screened. cp 20:40 Data reviewed: vital signs, nurses notes, lab test result(s), EKG, radiologic studies, cp plain films. 20:40 Differential diagnosis: Cervical Disc Herniation Cervical Raiculopathy cervical strain, cp Spondylolisthesis Spondylosis torticollis, acute LA. Management of patient was discussed with the following: Hospitalist: Linda Boo NP will admit after discussion. I considered the following discharge prescriptions or medication management in the emergency department Medications were administered in the Emergency Department. See MAR. Counseling: I had a detailed discussion with the patient and/or guardian regarding: the historical points, exam findings, and any diagnostic results supporting the discharge/admit diagnosis, lab results, radiology results, the need for further work-up and treatment in the hospital. Response to treatment: the patient's symptoms have markedly improved after treatment. 08/02 18:33 Order name: Basic Metabolic Panel; Complete Time: 20:10 cp 08/02 20:11 Interpretation: Normal except: NA 135; GLUC 186; BUN 75; CRE 1.87; GFR 28. cp 08/02 18:33 Order name: CBC with Diff; Complete Time: 19:26 cp 08/02 19:26 Interpretation: Normal except: RBC 3.11; HGB 9.9; HCT 29.4. cp 08/02 18:33 Order name: Troponin HS; Complete Time: 20:10 cp 08/02 20:11 Interpretation: Reviewed. 08/02 18:33 Order name: Glucose, Ancillary Testing; Complete Time: 18:34 EDMS 08/02 18:34 Interpretation: Reviewed. cp 08/02 20:38 Order name: BNP; Complete Time: 21:23 cp 08/02 21:23 Interpretation: NT PRO-BNP 68533; Reviewed. cp 08/02 18:33 Order name: XRAY Chest (1 view); Complete Time: 20:32 cp 08/02 18:38 Order name: CT C Spine; Complete Time: 19:54 cp 08/02 20:09 Order name: UPPER EXTREMITY VENOUS UNILATE; Complete Time: 21:23 EDMS 08/02 18:17 Order name: EKG; Complete Time: 18:17 cp 08/02 18:17 Order name: EKG - Nurse/Tech; Complete Time: 18:26 cp 08/02 18:33 Order name: Cardiac monitoring; Complete Time: 18:38 cp 08/02 18:33 Order name: IV Saline Lock; Complete Time: 19:31 cp 08/02 18:33 Order name: Labs collected and sent; Complete Time: 19:31 cp 08/02 18:33 Order name: O2 Per Protocol; Complete Time: 18:38 cp 08/02 18:33 Order name: O2 Sat Monitoring; Complete Time: 18:38 cp Administered Medications: 18:33 CANCELLED (Physician Discretion): Acetaminophen PO 500 mg PO once cp 18:45 Drug: HYDROcodone-acetaminophen PO 5 mg-325 mg 1 tabs Route: PO; eh3 21:42 Follow up: Response: No adverse reaction rv 20:50 Drug: Aspirin PO Chewable Tablet 324 mg Route: PO; rv 21:42 Follow up: Response: No adverse reaction rv 20:51 Not Given (Patient Refused): morphine IVP or IV 2 mg IVP once over 4 mins rv 20:51 Not Given (Patient Refused): morphine IVP or IV 2 mg IVP once over 4 mins rv Disposition Summary: 08/02/22 20:40 Hospitalization Ordered Hospitalization Status: Observation cp Provider: Mina Peralta cp Location: Telemetry/MedSurg (Inpatient) cp Condition: Stable cp Problem: new cp Symptoms: have improved cp Bed/Room Type: Standard Room Assignment: [facility](08/02/22 21:33) cg Diagnosis - Subsequent non-ST elevation (NSTEMI) myocardial infarction cp Forms: - Medication Reconciliation Form cp - SBAR form cp Signatures: Dispatcher [employer] EDMS Luis Alberto Orozco PA PA cp Garcia, Cindy, WM RN cg Franklin Moran RN RN rv Maritza Urbina RN RN 3 Jimbo, Marisela Gandhi RN RN mb9 Corrections: (The following items were deleted from the chart) 18:33 18:33 Acetaminophen PO 500 mg PO once ordered. cp cp 20:09 18:33 Extremity Venous Uni Ltd+US.RAD.BRZ ordered. EDMS EDMS 21:33 20:40 cp cg
--- NOTE | 2022-08-02 20:41 | ER ---
Nurse's Notes [facility] Name: Teena Simpson Age: 77 yrs Sex: Female : 1945 Arrival Date: 08/02/2022 Time: 18:06 Bed 19 Private MD: Diagnosis: Subsequent non-ST elevation (NSTEMI) myocardial infarction Presentation: 08/02 18:12 Chief complaint: Patient states: "For 1 week, I've had pain in my neck and right arm. mb9 I've been taking Tylenol but the pain comes back after it wears off. It hurts worse when I move my arm". Coronavirus screen: Vaccine status: Patient reports receiving the 2nd dose of the covid vaccine. Ebola Screen: No symptoms or risks identified at this time. Initial Sepsis Screen: Does the patient meet any 2 criteria? No. Patient's initial sepsis screen is negative. Does the patient have a suspected source of infection? No. Patient's initial sepsis screen is negative. Risk Assessment: Do you want to hurt yourself or someone else? Patient reports no desire to harm self or others. Onset of symptoms was August 02, 2022. 18:12 Method Of Arrival: Wheelchair 9 18:12 Acuity: TYSON 3 mb9 Triage Assessment: 18:14 General: Appears in no apparent distress. Behavior is calm, cooperative, appropriate mb9 for age. Pain: Complains of pain in right arm Pain radiates to neck Pain currently is 10 out of 10 on a pain scale. Aggravated by repositioning. Derm: Skin is pink, warm \\T\\ dry. Musculoskeletal: Range of motion: intact in all extremities. Historical: - Allergies: 18:14 Augmentin; mb9 18:14 Cipro; mb9 18:14 Keppra; mb9 - Home Meds: 18:14 Eliquis 5 mg Oral tablet 1 tab 2 times per day [Active]; mb9 19:00 atorvastatin 40 mg Oral tab 1 tab every day at bedtime [Active]; furosemide 40 mg Oral eh3 tab 1 tab daily [Active]; metoprolol succinate 50 mg Oral Tablet, Extended Release 24 hr 1 tab 2 times per day [Active]; Novolin N NPH U-100 Insulin 100 unit/mL Sub-Q tab 20 units every evening [Active]; Phenytoin 100mg Oral 1 tab 2 times per day [Active]; - PMHx: 18:14 Seizures; Anxiety; CHF; High Cholesterol; Hypertension; Diabetes - IDDM; Kidney failure mb9 stage 4; Low HR; Myocardial infarction; neuropathy; Atrial Fib; - PSHx: 18:14 Appendectomy; Hemorrhoidectomy; Pacemaker-Defib; mb9 - Immunization history:: Adult Immunizations up to date. - Social history:: Smoking status: Patient denies any tobacco usage or history of. Screenin:[facility] ED Fall Risk Assessment (Adult) Score/Fall Risk Level 0 - 2 = Low Risk. Abuse eh3 screen: Denies threats or abuse. Denies injuries from another. Nutritional screening: No deficits noted. Tuberculosis screening: No symptoms or risk factors identified. Assessment: 18:21 Reassessment: Patient appears in no apparent distress at this time. Patient is alert, db oriented x 3, equal unlabored respirations, skin warm/dry/pink. neck pain that radiates into right arm started today. states pain is not as bad now. General: Appears in no apparent distress. comfortable, Behavior is calm, cooperative. Pain: Complains of pain in neck and right arm. Neuro: Level of Consciousness is awake, alert, obeys commands, Oriented to person, place, time, situation, Speech is normal. Respiratory: Airway is patent Respiratory effort is even, unlabored, Respiratory pattern is regular, symmetrical. 19:00 Reassessment: Patient appears in no apparent distress at this time. Patient and/or 3 family updated on plan of care and expected duration. Pain level reassessed. Patient is alert, oriented x 3, equal unlabored respirations, skin warm/dry/pink. Vital Signs: 18:12 BP 120 / 72; Pulse 88; Resp 18; Temp 98.2; Pulse Ox 98% ; Weight 78.47 kg; Height 5 ft. mb9 0 in. ; Pain 10/10; 19:00 BP 135 / 72; Pulse 89; Resp 16; Pulse Ox 97% on R/A; eh3 21:42 BP 125 / 65; Pulse 86; Resp 16; Temp 98; Pulse Ox 99% on R/A; rv 18:12 Body Mass Index 33.79 (78.47 kg, 152.4 cm) mb9 18:12 Pain Scale: Adult mb9 ED Course: 18:09 Patient arrived in ED. im 18:14 Triage completed. mb9 18:14 Arm band placed on. mb9 18:15 Luis Alberto Orozco PA is PHCP. cp 18:15 Jody Sampson MD is Attending Physician. cp 18:19 Maritza Urbina, RN is Primary Nurse. eh3 18:21 Patient has correct armband on for positive identification. Bed in low position. Call eh3 light in reach. Side rails up X2. Adult w/ patient. Client placed on continuous cardiac and pulse oximetry monitoring. NIBP monitoring applied. Door closed. Noise minimized. Lights dimmed. Warm blanket given. 18:45 Inserted saline lock: 22 gauge in left antecubital area, using aseptic technique. Blood eh3 collected. 19:15 CT C Spine In Process Unspecified. EDMS 19:50 XRAY Chest (1 view) In Process Unspecified. EDMS 20:09 UPPER EXTREMITY VENOUS UNILATE In Process Unspecified. EDMS 20:38 Mina Peralta is Hospitalizing Provider. cp 21:41 No provider procedures requiring assistance completed. Patient admitted, IV remains in rv place. Administered Medications: 18:33 CANCELLED (Physician Discretion): Acetaminophen PO 500 mg PO once cp 18:45 Drug: HYDROcodone-acetaminophen PO 5 mg-325 mg 1 tabs Route: PO; eh3 21:42 Follow up: Response: No adverse reaction rv 20:50 Drug: Aspirin PO Chewable Tablet 324 mg Route: PO; rv 21:42 Follow up: Response: No adverse reaction rv 20:51 Not Given (Patient Refused): morphine IVP or IV 2 mg IVP once over 4 mins rv 20:51 Not Given (Patient Refused): morphine IVP or IV 2 mg IVP once over 4 mins rv Medication: 21:42 VIS not applicable for this client. rv Outcome: 20:40 Decision to Hospitalize by Provider. cp 21:41 Admitted to Med/surg accompanied by tech, via wheelchair, room 217, with chart, Report rv called to Elizabeth BURK 21:41 Condition: good 21:41 Instructed on the need for admit. 21:59 Patient left the ED. mb9 Signatures: Dispatcher [employer] EDMS Luis Alberto Orozco PA PA cp Franklin Moran RN RN rv Maritza Urbina, WM RN 3 Judy Leigh RN RN db Breneman, Mary Beth RN RN mb9 Sharron Green Corrections: (The following items were deleted from the chart) 18:43 18:12 Acuity: TYSON 4 mb9 mb9
[2022-08-02] MEDS ORDERED: ASPIRIN 81 MG CHEWABLE TABLET ONE (20:44)
[2022-08-02] MEDS ORDERED: MORPHINE 2 MG/ML SYR ONE (20:45)
--- NOTE | 2022-08-02 21:15 | RAD REPORT ---
EXAM DESCRIPTION: US - UPPER EXTREMITY VENOUS UNILATE - 08/02/2022 8:08 pm CLINICAL HISTORY: Pain COMPARISON: None. TECHNIQUE: Real-time sonographic evaluation of the left upper extremity deep venous system was perfo rmed. FINDINGS: Normal compressibility, flow augmentation, phasic flow and spontaneous flow is identified in the left upper extremity deep venous system. No intraluminal filling defects seen. IMPRESSION: No evidence of DVT in the left upper extremity.
--- NOTE | 2022-08-02 21:21 | P.HP ---
Certification for Inpatient Patient admitted to: Inpatient With expected LOS: <2 Midnights Patient will require the following post-hospital care: None Practitioner: I am a practitioner with admitting privileges, knowledge of patient current condition, hospital course, and medical plan of care. Services: Services provided to patient in accordance with Admission requirements found in Title 42 Section 412.3 of the Code of Federal Regulations Patient History Date of Service: 08/02/22 Reason for admission: NSTEMI History of Present Illness: Ms. Simpson is a 77 year old female with past medical history of insulin dependent type 2 diabetes, chronic kidney disease stage IV, chronic combined systolic/diastolic congestive heart failure, atrial fibrillation s/p PPM/AICD on eliquis, and hypertension who was presented to the emergency department with complaints of right arm pain and neck pain x [address] did not find anything to explain her symptoms. Arm US was negative for DVT. Chest xray showed "Findings suggesting central venous congestion/CHF or fluid overload. No evidence of focal [place] [address] (highest per chart review). Tr op is 91 and has not been elevated in the past. EKG without STEMI criteria.She denies chest pain, shortness of breath, diaphoresis. States she has had nausea, but that is normal for her. Will admit for further management. Allergies amoxicillin [From Augmentin] Adverse Reaction (Verified 07/27/22 00:05) Nausea/Vomiting ciprofloxacin Adverse Reaction (Verified 07/27/22 00:05) Nausea/Vomiting clavulanic acid [From Augmentin] Adverse Reaction (Verified 07/27/22 00:05) Nausea/Vomiting Home medications list reviewed: Yes Home Medications: Atorvastatin Calcium [Lipitor] 40 mg PO BEDTIME 08/07/21 Insulin NPH Human Isophane [Novolin N] 30 unit SQ 0800,199908/07/21 PHENYTOIN ER Cap [Dilantin ER Cap*] 50 mg PO BID 08/07/21 Metoprolol Succinate [Toprol Xl*] 50 mg PO BID 6AM 6PM #60 tab 05/09/22 Sacubitril/Valsartan [Entresto 24 mg-26 mg Tablet] 0.25 tab PO DAILY 07/10/22 Apixaban [Eliquis] 5 mg PO BID 07/12/22 Furosemide [Lasix*] 40 mg PO DAILY #30 tab 07/20/22 - Past Medical/Surgical History Diabetic: Yes -: Seizures -: Atrial fibrillation on chronic anticoagulation -: Diabetes mellitus type 2insulin-dependent -: Hypertension -: Hyperlipidemia -: Chronic systolic congestive heart failure -: CAD -: CKD 4 -: neuropathy -: Systolic CHF- EF 20-25% -: defibrilator -: defib/pacemaker placement x2 -: exploratory lap -: appendectomy -: Hemorrhoidectomy Psychosocial/ Personal History: Patient lives at home with family - Family History Father -: Hypertension, Lung disease Mother -: Heart disease, Hypertension, Diabetes Sister -: Diabetes Brother -: Diabetes, Kidney disease - Social History Smoking Status: Never smoker Alcohol use: No CD- Drugs: No Caffeine use: Yes Place of Residence: Home Review of Systems Musculoskeletal: Neck Pain, Arm Pain Physical Examination - Vital Signs Temperature: 98.2 F Blood Pressure: 135/72 Pulse: 89 Respirations: 16 Pulse Ox (%): 97 - Physical Exam General: Alert, In no apparent distress HEENT: Atraumatic, EOMI, Sclerae nonicteric Neck: Supple, 2+ carotid pulse no bruit Respiratory: Clear to auscultation bilaterally, Normal air movement Cardiovascular: Regular rate/rhythm, Normal S1 S2 Gastrointestinal: Normal bowel sounds, No tenderness Musculoskeletal: No tenderness Integumentary: No rashes Neurological: Normal speech, Normal affect - Studies Laboratory Data (last 24 hrs) 08/02/22 18:48: WBC 6.80, Hgb 9.9 L, Hct 29.4 L, Plt Count 240 08/02/22 18:48: Sodium 135 L, Potassium 3.8, BUN 75 H, Creatinine 1.87 H, Glucos e 186 H Assessment and Plan - Problems (Diagnosis) (1) NSTEMI (non-ST elevated myocardial infarction) Current Visit: Yes Status: Acute (2) Anemia Current Visit: Yes Status: Chronic Qualifiers: Anemia type: due to chronic kidney disease Chronic kidney disease stage: stage 4 (severe) Qualified Code(s): N18.4 - Chronic kidney disease, stage 4 (severe); D63.1 - Anemia in chronic kidney disease (3) Atrial fibrillation Current Visit: Yes Status: Chronic Qualifiers: Atrial fibrillation type: paroxysmal Qualified Code(s): I48.0 - Paroxysmal atrial fibrillation (4) CHF (congestive heart failure) Current Visit: Yes Status: Chronic Qualifiers: Heart failure type: systolic Heart failure chronicity: acute on chronic Qualified Code(s): I50.23 - Acute on chronic systolic (congestive) heart failure (5) CKD (chronic kidney disease) Current Visit: Yes Status: Chronic Qualifiers: Chronic kidney disease stage: stage 4 (severe) Qualified Code(s): N18.4 - Chronic kidney disease, stage 4 (severe) (6) Coronary artery disease Current Visit: Yes Status: Chronic Qualifiers: Coronary Disease-Associated Artery/Lesion type: [place] artery [place] vs. 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 Trend troponin. Monitor on telemetry. Consult cardiology. She denies chest patient, troponin elevation could be secondary to demand [place] [address], chest xray showed pulmonary edema, no peripheral edema noted on exam or dyspnea. Cardiology was planning outpatient cardiac cath but she had not yet scheduled it. Last cath in 2019 with mild CAD. Monitor and replete electrolytes per protocol. Reconcile and continue home medications. Continue home eliquis. Full code. Discharge Plan: Home Plan to discharge in: 48 Hours - Advance Directives Does patient have a Living Will: No Does patient have a Durable POA for Healthcare: Yes - Code Status/Comfort Care Code Status Assessed: Yes Code Status: Full Code Physician Review: Patient Assessed, Agree with Above Assessment and Plan Critical Care: No Time Spent Managing Pts Care (In Minutes): 50
[2022-08-02] MEDS ORDERED: ALBUTEROL 2.5 MG/3 ML NEB SOL NEB PRN (22:20)
[2022-08-02 23:50] VITALS: BMI 33.7
[2022-08-03] MEDS: ACETAMINOPHEN 500 MG TAB PO PRN ×2 (00:33→16:48)
[2022-08-03] MEDS: INSULIN -REGULAR HUMAN 50 UNIT/0.5 ML ML SQ SCH ×4 (00:34→17:32)
[2022-08-03] MEDS ORDERED: GLUCAGON 1 MG/VIAL IM PRN (01:26)
[2022-08-03] MEDS ORDERED: D50W 25 GM/50 ML SYRINGE IV PRN (01:26)
[2022-08-03] MEDS ORDERED: D10W 125 ML IV PRN (01:31)
[2022-08-03] MEDS: MELATONIN 5 MG TABLET PO PRN ×2 (01:33→21:36)
[2022-08-03 02:27] LABS: Renal Epithelial <5 /HPF (None Seen); Specific Gravity 1.011 (1.005-1.030); Urine Bacteria <20 /HPF (<20); Urine Bilirubin NEGATIVE (Negative); Urine Blood Negative (Negative); Urine Clarity Clear (Clear); Urine Color Light-Yellow (Yellow); Urine Glucose NEGATIVE (Negative); Urine Protein TRACE (Negative); Urine RBC <5 /HPF (None Seen); Urine Urobilinogen Normal (Normal); Urine pH 6.5 (5.0-7.0)
[2022-08-03 03:36] LABS: Absolute Lymphocytes (CBC) 2.2 K/uL (0.7-4.9); Lymphocytes % 28.4 % (15.3-44.8); MCV 95.2 fL (80-100); MPV 11.2 fL (7.6-11.3); RBC Red Blood Cell Count 3.16 M/uL (3.86-4.86)
[2022-08-03 03:47] LABS: Magnesium 2.5 mg/dL (1.6-2.4); Phosphorus 3.9 mg/dL (2.5-4.9); Potassium 3.5 mEq/L (3.5-5.1)
[2022-08-03 04:03] LABS: Troponin High Sensitivity 74.7 pg/mL (<58.9)
[2022-08-03] MEDS: METOPROLOL XL 50 MG TAB PO SCH ×2 (05:41→17:32)
--- NOTE | 2022-08-03 07:20 | EKG ---
Test Date: 2022-08-02 Test Time: 18:23:52 Aircraft Engine Dismantler: RUSSELL MEASUREMENT RESULTS: Intervals: Rate: 90 PA: 102 QRSD: 160 QT: 450 QTc: 550 [place]: P: 89 PA: 102 QRS: -73 T: 106 INTERPRETIVE STATEMENTS: AV sequential or dual chamber electronic pacemaker Compared to ECG 07/26/2022 11:39:07 Ventricular-paced complex(es) or rhythm no longer present Electronically Signed On 08-03-22 07:19:53 CDT by Ross Graf
[2022-08-03] MEDS ORDERED: PHENYTOIN ER 100 MG CAP PO SCH (09:00)
[2022-08-03] MEDS: SACUBITRIL/VALSARTAN 24/26 MG TAB PO SCH (09:17)
[2022-08-03] MEDS: FUROSEMIDE 40 MG TABLET PO SCH (09:18)
[2022-08-03] MEDS: NPH (HUMAN) 100 UNITS/ML INSULIN SQ SCH ×2 (09:18→21:02)
[2022-08-03] MEDS: APIXABAN 5 MG TABLET PO SCH ×2 (09:18→21:03)
[2022-08-03] MEDS ORDERED: ALBUTEROL 2.5 MG/3 ML NEB SOL NEB PRN (14:00)
--- NOTE | 2022-08-03 15:35 | CON ---
Date of Consultation: 08/03/2022 Reason For Consultation: Elevated troponin. 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 She had a heart cath on July 22, 2019, and no significant coronary artery disease was found. She presented to the emergency room c omplaining of right arm pain, neck pain, and she is nauseated and she is vomiting. Denies having any chest pain. No significant shortness of breath. Past Medical History: 1.Severe systolic heart failure, nonischemic. No coronary artery disease. 2.Diabetes. 3.Has a defibrillator in place, an ICD. 4.Dyslipidemia. Medications: Refer reconciliation sheet for detailed list. Allergies: AMOXICILLIN, CIPROFLOXACIN, AND AUGMENTIN. Family History: No premature coronary artery disease or cancer. Social History: Does not smoke or drink. Does not use any drugs. Review of Systems: All systems reviewed and they were negative except as mentioned in the HPI. Physical Examination: Vital Signs: Reviewed. Head and Neck: Pupils are equal, reactive to light. Intact eye movements. No JVD. No cervical lym phadenopathy. Neck: Supple. Thyroid is not enlarged. Lungs: Clear to auscultation bilaterally. No rhonchi, wheezing, or crackles. No accessory muscle u se. Heart: Regular rate and rhythm. No extra sounds. Abdomen: Soft, nontender. Bowel sounds positive. No organomegaly. No masses or hernia. No rigidi ty or rebound. Extremities: No clubbing, cyanosis. Intact pulses. Skin: No rash. Neurologic: Alert, awake, and oriented x3. No acute focal deficits appreciated. Investigations: BUN 72, creatinine 1.8. Hemoglobin is 10. Assessment/recommendations: 1.Elevated troponin. Troponin level is mildly elevated at 85 and then 74 with heart catheterization being normal in July 2019. This is definitely demand ischemia. Patient does not need any further i schemic workup. No further testing or procedures are indicated. 2.Nausea and vomiting, probably due to uremia. Recommend that she is evaluated by Nephrology to fur ther manage this issue. Cardiology will sign off on the case. SR/MODL Voice ID: [id number] Report ID: [id number]
[2022-08-03] MEDS: ONDANSETRON 4 MG/2 ML VIAL IV PRN (16:47)
--- NOTE | 2022-08-03 18:53 | P.PN ---
Subjective Date of Service: 08/03/22 Chief Complaint: NSTEMI Patient reports neck pain radiating to the right shoulder and right arm. She denies chest pain. Patient reports nausea and decreased oral intake. Physical Examination - Vital Signs Temperature: 97.6 F Blood Pressure: 147/76 Pulse: 102 Respirations: 18 Pulse Ox (%): 93 - Physical Exam General: Alert, In no apparent distress, Oriented x3 HEENT: PERRLA, Mucous membr. moist/pink, Sclerae nonicteric Neck: Supple, JVD not distended Respiratory: Clear to auscultation bilaterally, Normal air movement Cardiovascular: No edema, Regular rate/rhythm, Normal S1 S2 Gastrointestinal: Normal bowel sounds, Soft and benign, Non-distended, No tenderness Musculoskeletal: No swelling Integumentary: No rashes, No cyanosis Neurological: Normal speech, Normal strength at 5/5 x4 extr - Studies Laboratory Data (last 24 hrs) 08/02/22 18:48: WBC 6.80, Hgb 9.9 L, Hct 29.4 L, Plt Count 240 08/02/22 18:48: Sodium 135 L, Potassium 3.8, BUN 75 H, Creatinine 1.87 H, Glucose 186 H Assessment And Plan - Current Problems (Diagnosis) (1) Elevated troponin Current Visit: Yes Status: Acute (2) Atrial fibrillation Current Visit: Yes Status: Chronic Qualifiers: Atrial fibrillation type: paroxysmal Qualified Code(s): I48.0 - Paroxysmal atrial fibrillation (3) CKD (chronic kidney disease) Current Visit: Yes Status: Chronic Qualifiers: Chronic kidney disease stage: stage 4 (severe) Qualified Code(s): N18.4 - Chronic kidney disease, stage 4 (severe) (4) Diabetes Current Visit: Yes Status: Chronic Qualifiers: Diabetes mellitus type: type 2 Diabetes mellitus longterm insulin use: with longterm use Diabetes mellitus complication status: with hyperglycemia Qualified Code(s): E11.65 - Type 2 diabetes mellitus with hyperglycemia; Z79.4 - detention (current) use of insulin (5) Chronic systolic heart failure Current Visit: No Status: Acute - Plan Patient seen by cardiology. Elevated troponin likely secondary to demand ischemia. History of chronic systolic heart failure with low EF. Patient appears compensated. Noted CKD with significant uremia. Patient's nausea and loss of appetite likely related to uremia. Nephrology consult as recommended by cardiology. No further testing by cardiology. Increase activity as tolerated. Supportive measures. Continue metoprolol and Eliquis for atrial fibrillation. Monitor renal function.
[2022-08-03] MEDS: ATORVASTATIN 40 MG TAB PO SCH (21:03)
[2022-08-04 03:30] LABS: Potassium 4.1 mEq/L (3.5-5.1)
[2022-08-04] MEDS: METOPROLOL XL 50 MG TAB PO SCH ×2 (06:00→17:45)
[2022-08-04] MEDS: ONDANSETRON 4 MG/2 ML VIAL IV PRN (06:35)
[2022-08-04] MEDS: INSULIN -REGULAR HUMAN 50 UNIT/0.5 ML ML SQ SCH ×5 (07:30→21:00)
[2022-08-04] MEDS: SACUBITRIL/VALSARTAN 24/26 MG TAB PO SCH (08:44)
[2022-08-04] MEDS: FUROSEMIDE 40 MG TABLET PO SCH (08:44)
[2022-08-04] MEDS: APIXABAN 5 MG TABLET PO SCH ×2 (08:44→21:30)
[2022-08-04] MEDS: NPH (HUMAN) 100 UNITS/ML INSULIN SQ SCH ×2 (08:45→20:00)
[2022-08-04] MEDS: AMIODARONE HCL 200 MG TAB PO SCH ×2 (11:01→21:30)
--- NOTE | 2022-08-04 11:04 | P.PN ---
Subjective Date of Service: 08/04/22 Chief Complaint: NSTEMI Patient reports nausea. She states that she vomited yesterday and this morning. She denies chest pain. She apparently had runs of V. tach which were intermittent last night and this morning. Physical Examination - Vital Signs Temperature: 97.6 F Blood Pressure: 98/50 Pulse: 89 Respirations: 16 Pulse Ox (%): 93 - Physical Exam General: Alert, In no apparent distress, Oriented x3 HEENT: Mucous membr. moist/pink Neck: Supple, JVD not distended Respiratory: Clear to auscultation bilaterally, Normal air movement Cardiovascular: No edema, Regular rate/rhythm, Normal S1 S2, No murmurs Gastrointestinal: Normal bowel sounds, Soft and benign, Non-distended Musculoskeletal: No swelling Integumentary: No rashes, No cyanosis Neurological: Normal strength at 5/5 x4 extr Assessment And Plan - Current Problems (Diagnosis) (1) Elevated troponin Current Visit: Yes Status: Acute (2) Atrial fibrillation Current Visit: Yes Status: Chronic Qualifiers: Atrial fibrillation type: paroxysmal Qualified Code(s): I48.0 - Paroxysmal atrial fibrillation (3) CKD (chronic kidney disease) Current Visit: Yes Status: Chronic Qualifiers: Chronic kidney disease stage: stage 4 (severe) Qualified Code(s): N18.4 - Chronic kidney disease, stage 4 (severe) (4) Diabetes Current Visit: Yes Status: Chronic Qualifiers: Diabetes mellitus type: type 2 Diabetes mellitus assisted insulin use: with assisted use Diabetes mellitus complication status: with hyperglycemia Qualified Code(s): E11.65 - Type 2 diabetes mellitus with hyperglycemia; Z79.4 - joint terminal attack controller (current) use of insulin (5) Chronic systolic heart failure Current Visit: No Status: Acute (6) Ventricular arrhythmia Current Visit: No Status: Acute - Plan Patient seen by cardiology. Elevated troponin likely secondary to demand ischemia. History of chronic systolic heart failure with low EF. Patient appears compensated. Start amiodarone 400 mg twice daily for V. tach per cardiology. Interrogate AICD. Optimize electrolytes-potassium and magnesium. Noted CKD with significant uremia. Patient's nausea and loss of appetite likely related to uremia. Nephrology consulted Increase activity as tolerated. Supportive measures. Continue metoprolol and Eliquis for atrial fibrillation. Monitor renal function.
--- NOTE | 2022-08-04 19:49 | P.CNS ---
Date of Consult: 08/04/22 Reason for Consult: renal failure Requesting Physician: heaven kruger Chief Complaint: NSTEMI History of Present Illness: 77F w/ past medical history of CKD stage IV presumed to be secondary to hypertension/diabetes +/- chronic cardiorenal syndrome, baseline serum creatinine 1.8-2.1 (GFR 23-27 mL/min) as of March 2021, hypertension, DM type II, chronic combined systolic/diastolic heart failure, & chronic atrial fibrillation status post PPM/AICD on eliquis, who p/w a 4-day hx of right arm pain and neck pain. Neck CT did not find anything to explain her symptoms. Arm US was negative for DVT. Chest xray showed congestion. BNP significantly elevated. Troponin is elevated. She is admitted for further cardiac evaluation and management. Serum creatinine 1.9 on admission, today at 1.8, at her baseline. Allergies amoxicillin [From Augmentin] Adverse Reaction (Verified 07/27/22 00:05) Nausea/Vomiting ciprofloxacin Adverse Reaction (Verified 07/27/22 00:05) Nausea/Vomiting clavulanic acid [From Augmentin] Adverse Reaction (Verified 07/27/22 00:05) Nausea/Vomiting Home Medications: Atorvastatin Calcium [Lipitor] 40 mg PO BEDTIME 08/07/21 Insulin NPH Human Isophane [Novolin N] 30 unit SQ 0800,2000 08/07/21 PHENYTOIN ER Cap [Dilantin ER Cap*] 50 mg PO BID 08/07/21 Metoprolol Succinate [Toprol Xl*] 50 mg PO BID 6AM 6PM #60 tab 05/09/22 Sacubitril/Valsartan [Entresto 24 mg-26 mg Tablet] 0.25 tab PO DAILY 07/10/22 Apixaban [Eliquis] 5 mg PO BID 07/12/22 Furosemide [Lasix*] 40 mg PO DAILY #30 tab 07/20/22 - Past Medical/Surgical History Diabetic: Yes -: Seizures -: Atrial fibrillation on chronic anticoagulation -: Diabetes mellitus type 2insulin-dependent -: Hypertension -: Hyperlipidemia -: Chronic systolic congestive heart failure -: CAD -: CKD 4 -: neuropathy -: Systolic CHF- EF 20-25% -: defibrilator -: defib/pacemaker placement x2 -: exploratory lap -: appendectomy -: Hemorrhoidectomy -: cyst removal of arms and feet Psychosocial/ Personal History: Patient lives at home with family - Family History Father Medical History: Hypertension, Lung disease Mother Medical History: Heart disease, Hypertension, Diabetes Sister Medical History: Diabetes Brother Medical History: Diabetes, Kidney disease - Social History Smoking Status: Unknown if ever smoked Alcohol use: No CD- Drugs: No Caffeine use: Yes Place of Residence: Home Review of Systems General: Unremarkable Eyes: Unremarkable ENT: Unremarkable Respiratory: Unremarkable Cardiovascular: Unremarkable Gastrointestinal: Unremarkable Genitourinary: Unremarkable Musculoskeletal: Neck Pain, Other (right arm pain) Integumentary: Unremarkable Neurological: Unremarkable Lymphatics: Unremarkable Physical Examination Temp Pulse Resp BP Pulse Ox 97.1 F 95 H 16 107/59 L 96 08/04/22 16:00 08/04/22 16:00 08/04/22 16:00 08/04/22 16:00 08/04/22 16:00 General: Other (appears as her stated age) HEENT: Atraumatic, Normocephalic Neck: Supple, JVD not distended Respiratory: Other (symmetric chest expansion) Cardiovascular: No rubs, No murmurs Gastrointestinal: Soft and benign, No guarding Musculoskeletal: No clubbing Integumentary: No warmth Neurological: Normal tone Lymphatics: No axilla or inguinal lymphadenopathy Urinary: Other (no bladder distention) External genitalia: Deferred Rectal: Deferred Conclusions/Impression: # CKD4 presumed to be secondary to hypertension/diabetes +/- chronic cardiorenal syndrome Serum creatinine 1.9 on admission, today at 1.8, at her baseline Baseline serum creatinine 1.8-2.1 (GFR 23-27 mL/min) as of March 2021 [place] by mouth fluid intake Monitor renal panel # R arm pain and neck pain Neck CT did not find anything to explain her symptoms. Arm US was negative for DVT. Monitor # Hypertension Continue current medication regimen # CAD, chronic combined systolic/diastolic heart failure s/p ppm/aicd BNP sig elevated, troponin elevated For other services Continue Lasix by mouth same dose # Paroxysmal atrial fibrillation Eliqiuis # Ventricular tachycardia Started on amiodarone AICD device interrogation Per cardiology # DM type II Management per primary team
--- NOTE | 2022-08-04 20:17 | PN ---
Date of Progress Note: 08/04/2022 Subjective: She was seen by bedside, doing very well. No chest pain. I reviewed her records. She had a normal cardiac catheterization in 2020 and she does not have any chest pain. Review of Systems: There is no chest pain, shortness of breath, orthopnea, or cough. No nausea, vomiting, or diarrhea. All other systems reviewed and they were negative. Physical Examination: Vital Signs: Reviewed. Head And Neck: Pupils are equal and reactive to light. Intact eye movements. No JVD. No cervical lymphadenopathy. Neck is supple. Thyroid is not enlarged. Lungs: Clear to auscultation bilaterally. No rhonchi, wheezing, or crackles. No accessory muscle u se. Heart: Regular rate and rhythm. No extra sounds. Abdomen: Soft, nontender. Bowel sounds positive. No organomegaly. No masses or hernia. No rigidi ty or rebound. Extremities: No clubbing or cyanosis. Intact pulses. Skin: No rash. Neurologic: Alert, awake, and oriented x3. No acute focal deficits appreciated. Investigation: Labs were reviewed. Assessment/recommendation: 1.Elevated troponin, this is demand. She had a normal coronary angiogram. No further cardiac ricardo p is needed. We will plan for a stress test as an outpatient, but definitely she will not need another coronary angiogram. 2.Chronic kidney disease and it is stabilizing. SR/MODL Voice ID: [id number] Report ID: [id number]
[2022-08-04] MEDS: ATORVASTATIN 40 MG TAB PO SCH (21:30)
[2022-08-04] MEDS: MELATONIN 5 MG TABLET PO PRN (21:36)
[2022-08-04] MEDS: ACETAMINOPHEN 500 MG TAB PO PRN (21:36)
[2022-08-05] MEDS: METOPROLOL XL 50 MG TAB PO SCH (06:00)
[2022-08-05] MEDS: INSULIN -REGULAR HUMAN 50 UNIT/0.5 ML ML SQ SCH (07:30)
[2022-08-05] MEDS: NPH (HUMAN) 100 UNITS/ML INSULIN SQ SCH (08:41)
[2022-08-05] MEDS: APIXABAN 5 MG TABLET PO SCH (08:42)
[2022-08-05] MEDS: SACUBITRIL/VALSARTAN 24/26 MG TAB PO SCH (08:47)
[2022-08-05] MEDS: FUROSEMIDE 40 MG TABLET PO SCH (08:47)
[2022-08-05] MEDS: AMIODARONE HCL 200 MG TAB PO SCH (08:47)
[2022-08-05 08:48] VITALS: BP 124/73
[2022-08-05 08:59] VITALS: TEMP 97.7
--- NOTE | 2022-08-05 11:29 | P.DS ---
Admission Date: 08/02/22 Discharge Date: 08/05/22 Disposition: ROUTINE DISCHARGE Discharge Condition: FAIR Reason for Admission: NSTEMI - Problems (1) Elevated troponin Current Visit: Yes Status: Acute (2) Atrial fibrillation Current Visit: Yes Status: Chronic Qualifiers: Atrial fibrillation type: paroxysmal Qualified Code(s): I48.0 - Paroxysmal atrial fibrillation (3) CKD (chronic kidney disease) Current Visit: Yes Status: Chronic Qualifiers: Chronic kidney disease stage: stage 4 (severe) Qualified Code(s): N18.4 - Chronic kidney disease, stage 4 (severe) (4) Diabetes Current Visit: Yes Status: Chronic Qualifiers: Diabetes mellitus type: type 2 Diabetes mellitus [employer] terminal [employer] insulin use: with jail use Diabetes mellitus complication status: with hyperglycemia Qualified Code(s): E11.65 - Type 2 diabetes mellitus with hyperglycemia; Z79.4 - nursing home (current) use of insulin (5) Chronic systolic heart failure Current Visit: No Status: Acute (6) Ventricular arrhythmia Current Visit: No Status: Acute Brief History of Present Illness: Ms. Simpson is a 77 year old female with past medical history of insulin dependent type 2 diabetes, chronic kidney disease stage IV, chronic combined systolic/diastolic congestive heart failure, atrial fibrillation s/p PPM/AICD on eliquis, and hypertension who was presented to the emergency department with complaints of right arm pain and neck pain x [address] did not find anything to explain her symptoms. Arm US was negative for DVT. Chest xray showed "Findings suggesting central venous congestion/CHF or fluid overload. No evidence of focal [place] [address] (highest per chart review). Trop is 91 and has not been elevated in the past. EKG without STEMI criteria.She denies chest pain, shortness of breath, diaphoresis. States she has had nausea, but that is normal for her. Will admit for further management. Hospital Course: Patient admitted to the medical floor Patient seen by cardiology. Elevated troponin likely secondary to demand ischemia. History of chronic systolic heart failure with low EF. Patient appears compensated. She developed runs of V. tach during the hospital stay Started on amiodarone 400 mg twice daily for V. tach per cardiology. Interrogated AICD: Showed multiple VT episodes as well as atrial tachycardia and atrial flutter episodes. Case discussed with Dr. Moore recommend outpatient stress Noted CKD with significant uremia. Patient's nausea and loss of appetite likely related to uremia. Serum creatinine trended down and urea improved. Nephrology assisted with management. Patient currently has no nausea and tolerating her diet. She is ambulating Continued metoprolol and Eliquis for atrial fibrillation during the hospital stay. Patient is asking currently improved for discharge. Vital Signs/Physical Exam: Temp Pulse Resp BP Pulse Ox 97.7 F 89 16 124/73 97 08/05/22 08:00 08/05/22 08:47 08/05/22 08:00 08/05/22 08:47 08/05/22 08:00 General: Alert, In no apparent distress, Oriented x3 HEENT: Mucous membr. moist/pink, Sclerae nonicteric Neck: Supple, JVD not distended Respiratory: Clear to auscultation bilaterally, Normal air movement Cardiovascular: No edema, Regular rate/rhythm, Normal S1 S2 Gastrointestinal: Normal bowel sounds, Soft and benign, Non-distended, No tenderness Musculoskeletal: No swelling Integumentary: No rashes, No cyanosis Neurological: Normal strength at 5/5 x4 extr Laboratory Data at Discharge: WBC 7.90 thou/uL (4.3-10.9) 08/03/22 02:20 Hgb 10.0 g/dL (12.0-15.0) L 08/03/22 02:20 Hct 30.0 % (36.0-45.0) L 08/03/22 02:20 Plt Count 232 thou/uL (152-406) 08/03/22 02:20 Sodium 141 mEq/L (136-145) 08/04/22 02:48 Potassium 4.1 mEq/L (3.5-5.1) D 08/04/22 02:48 BUN 64 mg/dL (7-18) H 08/04/22 02:48 Creatinine 1.77 mg/dL (0.55-1.02) H 08/04/22 02:48 Glucose 81 mg/dL (74-106) 08/04/22 02:48 Phosphorus 3.9 mg/dL (2.5-4.9) 08/03/22 02:20 Magnesium 2.5 mg/dL (1.6-2.4) H 08/04/22 12:02 Triglycerides 124 mg/dL (<150) 08/03/22 02:20 Cholesterol 136 mg/dL (<200) 08/03/22 02:20 HDL Cholesterol 52 mg/dL (40-60) 08/03/22 02:20 Cholesterol/HDL Ratio 2.62 08/03/22 02:20 Home Medications: Atorvastatin Calcium [Lipitor] 40 mg PO BEDTIME 08/07/21 Insulin NPH Human Isophane [Novolin N] 30 unit SQ 0800,2000 08/07/21 PHENYTOIN ER Cap [Dilantin ER Cap*] 50 mg PO BID 08/07/21 Metoprolol Succinate [Toprol Xl*] 50 mg PO BID 6AM 6PM #60 tab 05/09/22 Sacubitril/Valsartan [Entresto 24 mg-26 mg Tablet] 0.25 tab PO DAILY 07/10/22 Apixaban [Eliquis] 5 mg PO BID 07/12/22 Furosemide [Lasix*] 40 mg PO DAILY #30 tab 07/20/22 Amiodarone HCl [Cordarone*] 400 mg PO BID #72 tab 08/05/22 New Medications: Amiodarone HCl [Cordarone*] 400 mg PO BID #72 tab Diet: ADA Activity: Fall precautions Followup: Armond Moore MD [ACTIVE - CAN ADMIT] - 1-2 Weeks Elaine Lamb MD [Primary Care Provider] - 1-2 Weeks Time spent managing pt's care (in minutes): 38
[2022-08-05 12:33] VITALS: O2SAT 96
--- NOTE | 2022-08-05 22:19 | PN ---
Date of Progress Note: 08/05/2022 Chief Complaint: Renal failure, patient has advanced chronic kidney disease stage 4, presumed to be secondary to hypertension and diabetes with chronic cardiorenal syndrome. Baseline creatinine level is ranging from 1.8 to 2.1. GFR from 23 to 27. Patient has combined systolic and diastolic congesti ve heart failure; chronic atrial fibrillation, status post AICD. She remains on Eliquis. She presen luis miguel to the hospital with right arm pain and neck pain of 4 days' duration. Neck CT did not show any significant changes, which would correspond to her symptoms. Arm ultrasound was negative for DVT. C hest x-ray showed congestion. BNP was elevated and troponin was elevated. Serum creatinine on admis puneet was 1.9 and subsequently improved to 1.8, which is her baseline. Review of Systems: Denies chest pain, palpitation. Right upper extremity pain is somewhat alleviated by pain medication . She denies extremity weakness. Physical Examination: Lungs: Clear to auscultation bilaterally. Heart: S1, S2. Abdomen: Soft. Extremities: Slight edema in both ankles. Impression And Plan: 1.Cardiorenal syndrome. Continue diuretic and continue low-sodium diet and adequate hydration by [facility]. Patient has chronic kidney disease secondary to hypertension and diabetes and stage 4 chronic ki dney disease complicated by chronic cardiorenal syndrome. Monitor electrolytes closely. Continue di uretics for cardiorenal syndrome. Right arm pain and neck pain. CT scan did not show any significan t changes, which will produce above combination of symptoms. 2.Hypertension. Continue current medication regimen. Monitor blood pressure closely. 3.Ventricular tachycardia. Patient is on amiodarone. AICD was placed previously. Monitor by [facility] ologist. MANOJ/MODL Voice ID: [id number] Report ID: [id number]
== END 2022-08-05 12:22 | disposition home or self-care (01) | DRG 280 ==
LOC: ER 18:06 → ERHOLD 21:12 → 2ND 21:52
PROVIDERS: ADMIT Internal Medicine; ATTEND Internal Medicine
DX: I13.0 Hypertensive heart and chronic kidney disease with heart failure and stage 1 through stage 4 chronic kidney disease, or unspecified chronic kidney disease (principal); I50.23 Acute on chronic systolic (congestive) heart failure; I21.A1 Myocardial infarction type 2; N18.4 Chronic kidney disease, stage 4 (severe); N39.0 Urinary tract infection, site not specified; I47.20 Ventricular tachycardia, unspecified; E11.22 Type 2 diabetes mellitus with diabetic chronic kidney disease; E11.40 Type 2 diabetes mellitus with diabetic neuropathy, unspecified; E11.65 Type 2 diabetes mellitus with hyperglycemia; D63.1 Anemia in chronic kidney disease; E78.00 Pure hypercholesterolemia, unspecified; E66.01 Morbid (severe) obesity due to excess calories; I48.0 Paroxysmal atrial fibrillation; I25.10 Atherosclerotic heart disease of native coronary artery without angina pectoris; I25.2 Old myocardial infarction; B95.2 Enterococcus as the cause of diseases classified elsewhere; Z88.1 Allergy status to other antibiotic agents; Z79.4 Long term (current) use of insulin; Z88.8 Allergy status to other drugs, medicaments and biological substances; Z68.33 Body mass index [BMI] 33.0-33.9, adult; Z90.49 Acquired absence of other specified parts of digestive tract; Z79.01 Long term (current) use of anticoagulants; Z79.899 Other long term (current) drug therapy; Z95.810 Presence of automatic (implantable) cardiac defibrillator
CPT/HCPCS: 36415; 71045; 72125; 80048; 80061; 81001; 82947; 83036; 83735; 83880; 84100; 84484; 85025; 87077; 87086; 87088; 87186; 93005; 93280; 93971; 94760; 99285; J1815; J2270; J2405

== ENCOUNTER 2022-08-11 22:19 | Observation (INO) | payer OTHER ==
--- OUTSIDE RECORDS SUMMARY | 2022-08-11 22:30 | XMS REPORT | Continuity of Care Document ---
:1945 Author Organization [facility] t Address [address] [place] [address] [address] [place] [address] Care Team Providers Name Role Phone CAMRON ARIAS Primary Care Physician Unavailable Elaine Lamb Attending Clinician Unavailable FAM CRAIG Attending Clinician Unavailable SILVERIO ADAM Attending Clinician Unavailable SRIRAM HEATH Attending Clinician Unavailable Kumar SQUIRES, Sriram Attending Clinician Doctor Unassigned, [place] Attending Clinician Unavailable 2, [facility] Attending Clinician Unavailable Silverio Adam MD Attending Clinician Nara Galvan RN Attending Clinician Unavailable BRII SAMSON Attending Clinician Unavailable Marina Pang DO Attending Clinician Brii Samson MD Attending Clinician Fang Perez MD Attending Clinician Unknown, Attending Attending Clinician Unavailable FANG PEREZ Attending Clinician Unavailable JASON, AMITA Attending Clinician Unavailable JASON, AMITA Attending Clinician Unavailable Tni SQUIRES, Alexey Attending Clinician ALEXEY CASTLE Attending Clinician Unavailable DIANN GUY Attending Clinician Unavailable Diann Guy MD Attending Clinician MITCHELL GARCIA Attending Clinician Unavailable MITCHELL GARCIA Attending Clinician Unavailable IBIKUNLE, FOLUSHO F Attending Clinician Unavailable Ibikunle JOINT YARNER, Folusho F Attending Clinician Major SQUIRES, Clare Combs Attending Clinician CLARE GONSALVES Attending Clinician Unavailable Tommy BURK, Luis Alberto Attending Clinician Unavailable Mitchell Garcia MD Attending Clinician Po, [facility] Main Attending Clinician Unavailable Willian SQUIRES, Ortega Lester Attending Clinician [phone] ORTEGA DORSEY Attending Clinician Unavailable Cielo Bautista [...] GRAMM, SHANTEL A Attending Clinician Unavailable Gramm JOINT YARNER, Shantel A Attending Clinician Sabina Barba MD Attending Clinician SABINA BARBA Attending Clinician Unavailable Ericka Chen Attending Clinician ERICKA ACKERMAN Attending Clinician Unavailable Lab, Ang - Db Attending Clinician Unavailable VIRI PRICE Attending Clinician Unavailable Lab, [facility] Fam Pob I Attending Clinician Unavailable Jose JOINT YARNER, Karla Attending Clinician Dee JOINT YARNER, Viri Martinez Attending Clinician Teri Samano RN Attending Clinician Unavailable ERICH PANTOJA Attending Clinician Unavailable Pacemaker/Icd, [facility] Attending Clinician Unavailable Omole JOINT YARNER, Min Godinez Attending Clinician [phone] OMOLE, MIN GRETCHEN Attending Clinician Unavailable Nita Degroot DO Attending Clinician NITA DEGROOT Attending Clinician Unavailable NITA DEGROOT Attending Clinician Unavailable Provider, [facility] Attending Clinician Unavailable Anedevante JOINT YARNER, Monica Attending Clinician MONICA MCCORMICK Attending Clinician Unavailable Calli BURK, Jo More Attending Clinician Unavailable Kirt Thomason DO Attending Clinician Gab Servin MD Attending Clinician GAB SERVIN Attending Clinician Unavailable Cielo Henry RN Attending Clinician Fam Craig MD Attending Clinician [phone] Edgar Cortés MD Attending Clinician [phone] EDGAR CORTÉS Attending Clinician Unavailable Lubna Lal MD Attending Clinician LUBNA LAL Attending Clinician Unavailable , [facility] Echo Room 1 - Attending Clinician Unavailable Visit, [facility] Nurse Attending Clinician Unavailable Dago Gross MDHKaren Attending Clinician Pc, [facility] Vascular Room 1 - Attending Clinician Unavailable ALEXUS RAMOS Attending Clinician Unavailable ALEXUS RAMOS Attending Clinician Unavailable DAGO GROSSHKaren Attending Clinician Unavailable EVAN MARTIN Attending Clinician Unavailable EKATERINA BOUDREAUX Attending Clinician Unavailable Nate JOINT YARNER, Madeleine Strauss Attending Clinician Emily Lezama Attending Clinician [facility], Adc Heart Failure Cardio Attending [...] Effective Date Expiration Date Lucy toribio BLAKE/SANDRA [id number] 2019 MEDICARE ADVANTAGE 00:00:00 HUMANA CHOICE [id number] 2022 00:00:00 Problems Condition Condition Condition Status Onset Resolution Last Treating Co mments Source Name Details Category Date Date Treatment Clinician Date Pulmonary Pulmonary Disease Active 2021-02 Uni vers hypertensi hypertensi 2-31 it y of on on 00:00: [address] Branch Presence Presence Disease Active 2021-02 Unive rs of cardiac of cardiac 2-30 [place] res[place]ynchron [place] ization ization 00 Medical therapy therapy Branch defibrilla 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) SOB SOB Disease Active 2021-02 Univers (shortness (shortness 2-29 it y of of breath) of breath) [place]: [place] 00 [place] Atrial Atrial Disease Active Univers tachycardi tachycardi 2-25 it y of a a 00:00: [address] Branch Dizziness Dizziness Disease Active Uni [...] Added automatic ally from request for surgery [id number] Refusal of Refusal of Disease Active 2020-02 U nivers blood blood 2-13 ity of transfusio transfusio [place] ns as 00 Medical patient is patient is Br anch [employer] Osteopenia Osteopenia Disease Active 2020-02 U [...] Univers (degenerat (degenerat 1-07 it y of frenando disc fernando disc 00:00: [place] disease), disease), [...] colon 5-03 ity of polyps polyps 00:00: [address] Branch History of History of Disease Active U nivers pulmonary pulmonary 2-17 ity of embolism embolism 00:00: [place] [facility] Branch ICD ICD Disease Active Univers (implantab (implantab 2-17 it y of le le 00:00: [place] cardiovert cardiovert 00 Me dical er-defibri er-defibri Br anch llator) in llator) in place place Atrial Atrial Disease Active Univers fibrillati fibrillati 1-16 it y of on on 00:00: [address] Branch Syncope Syncope Disease Active Univers 1-15 ity of 00:00: [place] [facility] Branch DM DM Disease Active Univers (diabetes (diabetes 8-31 ity of mellitus), mellitus), 00:[place] type 2 type 2 00 Medical with renal with renal Br anch complicati complicati ons ons Anxiety Anxiety Disease Active Univers ity of [facility] CKD CKD Disease Active Univers (chronic (chronic ity of kidney kidney [place] disease) disease) Medica l stage 4, stage 4, Branch GFR 15-29 GFR 15-29 ml/min ml/min Epilepsy Epilepsy Disease Active Unive rs ity of [facility] Esophageal Esophageal Disease Active U nivers reflux reflux ity of [facility] HLD HLD Disease Active Univers (hyperlipi (hyperlipi it y of demia) demia) [facility] HTN HTN Disease Active Univers (hypertens [...] History SDOH Social Unive rsity of Connections [facility] Med ical Together Branch History SDOH Social Unive rsity of Connections [facility] Branch Medical Branch History SDOH Social Unive rsity of Connections [place] Medical Membership Branch History SDOH Social Unive rsity of [facility] Medical Meetings Branch Exposure to 2022-03-12 2022-03-22 Not sure University of SARS-CoV-2 (event) 00:00:00 07:50:00 [facility] Branch Alcohol intake 2022-03-14 2022-03-14 Current University of 00:00:00 00:00:00 non-drinker of [facility] alcohol Branch (finding) History SDOH 2022-02-17 2022-02-17 1 University o f Alcohol Frequency 00:00:00 00:00:00 [facility] edical Branch History SDOH Social 2022-02-17 2022-02-17 5 Unive rsity of Connections Phone 00:00:00 00:00:00 [facility] edical Branch History SDUT Social 2022-02-17 2022-02-17 98 Unive rsity of Connections Living 00:00:00 00:00:00 [place] [facility] Branch History SDOH 2022-02-17 2022-02-17 7 University o f Physical Activity 00:00:00 00:00:00 [facility] edical DPW Branch History SDUT 2022-02-17 2022-02-17 1 University o f Physical Activity 00:00:00 00:00:00 [place] M edical MPS Branch History SDUT 2022-02-17 2022-02-17 5 University o f Financial 00:00:00 00:00:00 [place] [facility] Branch History SDOH Food 2022-02-17 2022-02-17 1 Univers ity of Worry 00:00:00 00:00:00 [place] [facility] Branch History SDOH Food 2022-02-17 2022-02-17 1 Univers ity of Scarcity 00:00:00 00:00:00 [place] Medical Branch History SDUT 2022-02-17 2022-02-17 2 University o f Transport Med 00:00:00 00:00:00 [place] Medic al Branch History [facility] 2022-02-17 2022-02-17 2 University o f Transport Non-Med 00:00:00 00:00:00 [facility] edical Branch Tobacco use and 2022-02-16 2022-02-16 Smokeless Universit y of exposure 00:00:00 00:00:00 tobacco non-user [facility] dical Branch Tobacco Comment 2022-02-16 2022-02-16 exposed to "a Univer sity of 00:00:00 00:00:00 lot" of passive [place] Med ical smoke from Branch Sex [birth year] Universit y of 00:00:00 00:00:00 [facility] Smoking Status Start Date Stop Date Source Never smoked tobacco [facility] Medications Ordered Filled Start Stop Current Ordering Indication Dosage Frequency Signature Comments Components Source Medication Medication Date Date Medication? Clinician (SIG) Name Name metoprolol Yes [id number] 50mg Take 1 Univers succinate 2-07 tablet by ity o f XL 50 mg 24 00:00: mouth 2 [place] hr tablet 00 (two) Medical times Branch daily. amiodarone Yes [id number] 200mg Take 1 Univers 200 mg 1-26 tablet by ity of tablet 00:00: mouth [place] 00 daily. Medical Branch amiodarone Yes [id number] 200mg Take 1 Univers 200 mg 1-26 tablet by ity of tablet 00:00: mouth [place] 00 daily. Medical Branch amiodarone Yes [id number] 200mg Take 1 Univers 200 mg 1-26 tablet by ity of tablet 00:00: mouth [place] 00 daily. Medical Branch amiodarone Yes [id number] 200mg Take 1 Univers 200 mg 1-26 tablet by ity of tablet 00:00: mouth [place] 00 daily. Medical Branch amiodarone Yes [id number] 200mg Take 1 Univers 200 mg 1-26 [...] at 6am and 6pm furosemide 2022- Yes [id number] 40mg Take 1 Univers 40 mg 1-10 tablet by ity of tablet 00:00: mouth [place] 00 every Medical morning Branch and evening. metoprolol Yes [id number] 50mg Take 1 Univers succinate 1-10 tablet by ity o f XL 50 mg 24 00:00: mouth 2 [place] hr tablet 00 (two) Medical times Branch daily. apixaban Yes 1358 2.5mg Take 1 Univer s (ELIQUIS) 1-10 tablet by ity o f 2.5 mg 00:00: mouth 2 [place] tablet 00 (two) Medical times Branch daily. Indication s: atrial fibrillati on furosemide Yes [id number] 40mg Take 1 Univers 40 mg 1-10 tablet by ity of tablet 00:00: mouth [place] 00 every Medical morning Branch and evening. metoprolol 2022-0 Yes [id number] 50mg Take 1 Univers succinate 1-10 tablet [...] s: atrial fibrillati on furosemide 0 Yes [id number] 40mg Take 1 Univers 40 mg 1-10 tablet by ity of tablet 00:00: mouth [place] 00 every Medical morning Branch and evening. metoprolol 2022-0 Yes [id number] 50mg Take 1 Univers succinate 1-10 tablet [...] s: atrial fibrillati on furosemide 0 Yes [id number] 40mg Take 1 Univers 40 mg 1-10 tablet by ity of tablet 00:00: mouth [place] 00 every Medical morning Branch and evening. metoprolol 2022-0 Yes [id number] 50mg Take 1 Univers succinate 1-10 tablet [...] s: atrial fibrillati on furosemide 2022-0 Yes [id number] 40mg Take 1 Univers 40 mg 1-10 tablet by ity of tablet 00:00: mouth [place] 00 every Medical morning Branch and evening. metoprolol 2022-0 Yes [id number] 50mg Take 1 Univers succinate 1-10 tablet [...] s: atrial fibrillati on furosemide 2022-0 Yes [id number] 40mg Take 1 Univers 40 mg 1-10 tablet by ity of tablet 00:00: mouth [place] 00 every Medical morning Branch and evening. metoprolol 2022-0 Yes [id number] 50mg Take 1 Univers succinate 1-10 tablet [...] s: atrial fibrillati on furosemide 2022-0 Yes [id number] 40mg Take 1 Univers 40 mg 1-10 tablet by ity of tablet 00:00: mouth [place] 00 every Medical morning Branch and evening. metoprolol 2022-0 Yes [id number] 50mg Take 1 Univers succinate 1-10 tablet [...] s: atrial fibrillati on furosemide 2022-0 Yes [id number] 40mg Take 1 Univers 40 mg 1-10 tablet by ity of tablet 00:00: mouth [place] 00 every Medical morning Branch and evening. apixaban 2022-0 Yes 1358 2.5mg Take 1 Univer s (ELIQUIS) 1-10 tablet by ity o f 2.5 mg 00:00: mouth 2 [place] tablet 00 (two) Medical times Branch daily. Indication s: atrial fibrillati on furosemide 2023-0 Yes [id number] 40mg Take 1 Univers 40 mg 1-10 tablet by ity of tablet 00:00: mouth [place] 00 every Medical morning Branch and evening. apixaban Yes 1358 2.5mg Take 1 Univer s (ELIQUIS) 1-10 tablet by ity o f 2.5 mg 00:00: mouth 2 [place] tablet 00 (two) Medical times Branch daily. Indication s: atrial fibrillati on metoprolol 202- No [id number] 50mg Take 1 Univers succinate 1-10 02-06 tablet by ity of XL 50 mg 24 00:00: 00:00 mouth 2 [place] hr tablet 00 :00 (two) Medical times Branch daily. insulin NPH Yes [id number] 20U inject 20 Univers 100 unit/mL 1-02 Units ity of injection 00:00: under the [place] 00 skin every Medical morning. Branch insulin NPH Yes [id number] 20U inject 20 Univers 100 unit/mL 1-02 Units ity of injection 00:00: under the [place] 00 skin every Medical morning. Branch insulin NPH Yes [id number] 20U inject 20 Univers 100 unit/mL 1-02 Units ity of injection 00:00: under the [place] 00 skin every Medical morning. Branch insulin NPH Yes [id number] 20U inject 20 Univers 100 unit/mL 1-02 Units ity of injection 00:00: under the [place] 00 skin every Medical morning. Branch insulin NPH Yes [id number] 20U inject 20 Univers 100 unit/mL 1-02 Units ity of injection 00:00: under the [place] 00 skin every Medical morning. Branch insulin NPH Yes [id number] 20U inject 20 Univers 100 unit/mL 1-02 Units ity of injection 00:00: under the [place] 00 skin every Medical morning. Branch insulin NPH Yes [id number] 20U inject 20 Univers 100 unit/mL 1-02 Units ity of injection 00:00: under the [place] 00 skin every Medical morning. Branch insulin NPH Yes [id number] 20U inject 20 Univers 100 unit/mL 1-02 Units ity of injection 00:00: under the [place] 00 skin every Medical morning. Branch insulin NPH 2022-0 Yes [id number] 20U inject 20 Univers 100 unit/mL 1-02 Units ity of injection 00:00: under the [place] 00 skin every Medical morning. Branch insulin NPH 2022-0 Yes [id number] 20U inject 20 Univers 100 unit/mL 1-02 Units ity of injection 00:00: under the [place] 00 skin every Medical morning. Branch insulin NPH 2022-0 Yes [id number] 20U inject 20 Univers 100 unit/mL 1-02 [...] 03:00: First dose [place] 00 on Sat [facility] 02/18/22 Branch at 2100, Until Discontinu ed, Routine insulin NPH 2022-0 Yes [id number] 15U inject 15 Univers 100 unit/mL 1-01 Units ity of injection 00:00: under the [place] 00 skin at Medical bedtime. Branch polyethylen 2022-0 Yes [id number] 17g Take 1 Univers e glycol 1- Packet by ity of 3350 17 00:00: mouth [place] gram powder 00 every 24 Medi sandra (twenty-fo Branch ur) hours as needed for Constipati on. insulin NPH 2022-0 Yes [id number] 15U inject 15 Univers 100 unit/mL 1-01 Units ity of injection 00:00: under the [place] 00 skin at Medical bedtime. Branch polyethylen 0 Yes [id number] 17g Take 1 Univers e glycol 1-01 Packet by ity of 3350 17 00:00: mouth [place] gram powder 00 every 24 Medi sandra (twenty-fo Branch ur) hours as needed for Constipati on. insulin NPH Yes [id number] 15U inject 15 Univers 100 unit/mL 1-01 Units ity of injection 00:00: under the [place] 00 skin at Medical bedtime. Branch polyethylen 0 Yes [id number] 17g Take 1 Univers e glycol 1-01 Packet by ity of 3350 17 00:00: mouth [place] gram powder 00 every 24 Medi sandra (twenty-fo Branch ur) hours as needed for Constipati on. insulin NPH Yes [id number] 15U inject 15 Univers 100 unit/mL 1-01 Units ity of injection 00:00: under the [place] 00 skin at Medical bedtime. Branch polyethylen 0 Yes [id number] 17g Take 1 Univers e glycol 1-01 Packet by ity of 3350 17 00:00: mouth [place] gram powder 00 every 24 Medi sandra (twenty-fo Branch ur) hours as needed for Constipati on. insulin NPH Yes [id number] 15U inject 15 Univers 100 unit/mL 1-01 Units ity of injection 00:00: under the [place] 00 skin at Medical bedtime. Branch polyethylen 0 Yes [id number] 17g Take 1 Univers e glycol 1-01 Packet by ity of 3350 17 00:00: mouth [place] gram powder 00 every 24 Medi sandra (twenty-fo Branch ur) hours as needed for Constipati on. insulin NPH Yes [id number] 15U inject 15 Univers 100 unit/mL 1-01 Units ity of injection 00:00: under the [place] 00 skin at Medical bedtime. Branch polyethylen 0 Yes [id number] 17g Take 1 Univers e glycol 1-01 Packet by ity of 3350 17 00:00: mouth [place] gram powder 00 every 24 Medi sandra (twenty-fo Branch ur) hours as needed for Constipati on. insulin NPH Yes [id number] 15U inject 15 Univers 100 unit/mL 1-01 Units ity of injection 00:00: under the [place] 00 skin at Medical bedtime. Branch polyethylen 2022-0 Yes [id number] 17g Take 1 Univers e glycol 1-01 Packet by ity of 3350 17 00:00: mouth [place] gram powder 00 every 24 Medi sandra (twenty-fo Branch ur) hours as needed for Constipati on. insulin NPH 2022-0 Yes [id number] 15U inject 15 Univers 100 unit/mL 1-01 Units ity of injection 00:00: under the [place] 00 skin at Medical bedtime. Branch polyethylen 2022-0 Yes [id number] 17g Take 1 Univers e glycol 1-01 Packet by ity of 3350 17 00:00: mouth [place] gram powder 00 every 24 Medi sandra (twenty-fo Branch ur) hours as needed for Constipati on. insulin NPH 2022-0 Yes [id number] 15U inject 15 Univers 100 unit/mL 1-01 Units ity of injection 00:00: under the [place] 00 skin at Medical bedtime. Branch polyethylen 2022-0 Yes [id number] 17g Take 1 Univers e glycol 1-01 Packet by ity of 3350 17 00:00: mouth [place] gram powder 00 every 24 Medi sandra (twenty-fo Branch ur) hours as needed for Constipati on. insulin NPH 2022-0 Yes [id number] 15U inject 15 Univers 100 unit/mL 1-01 Units ity of injection 00:00: under the [place] 00 skin at Medical bedtime. Branch polyethylen 2022-0 Yes [id number] 17g Take 1 Univers e glycol 1-01 Packet by ity of 3350 17 00:00: mouth [place] gram powder 00 every 24 Medi sandra (twenty-fo Branch ur) hours as needed for Constipati on. insulin NPH 2022-0 Yes [id number] 15U inject 15 Univers 100 unit/mL 1-01 Units ity of injection 00:00: under the [place] 00 skin at Medical bedtime. Branch polyethylen 2022-0 Yes [id number] 17g Take 1 Univers e glycol 1-01 Packet by ity of 3350 17 00:00: mouth [place] gram powder 00 every 24 Medi sandra (twenty-fo Branch ur) hours as needed for Constipati on. furosemide 2022- No [id number] 40mg Take 1 Univers 40 mg 02-19 tablet by ity of tablet 00:00: 05:59 mouth [place] 00 :00 every Medical morning Branch and evening for 30 days. furosemide 2022- No [id number] 40mg Take 1 Univers 40 mg 02-19 tablet by ity of tablet 00:00: 05:59 mouth [place] 00 :00 every Medical morning Branch and evening for 30 days. furosemide 2022- No [id number] 40mg Take 1 Univers 40 mg 02-19 tablet by ity of tablet 00:00: 00:00 mouth [place] 00 :00 every Medical morning Branch and evening for 30 days. furosemide 2022- No [id number] 40mg Take 1 Univers 40 mg 02-19 [...] Until Discontinu ed, Routine sulfur 2021-02- No [id number] 5mL 5 mL, Un araseli hexafluorid 02-17 9103 Intravenou i ty of e microsphr 15:00: 15:00 s, ONCE, 1 [place] (LUMASON) 00 :00 dose, On Medica l injection 5 Sun Branch mL 02/17/22 at 0900, Routine
aboriginal community council member approving Restricted medication : KUMARSRIRAM polyethylen 2021-02 Yes 17g 17 g, Unive rs e glycol 2-30 Oral, ity of 3350 powder 05:09: [id number], [place] 17 g 36 Starting Medical on [place] Branch 02/16/22 at 2309, Until Discontinu ed, Routine, Constipati on phenytoin 2021-02 Yes 200mg 200 mg, Univ ers Extended 2-30 Oral, QHS, ity o f (DILANTIN 03:00: First dose [place] KAPSEAL) 00 on [facility] Medical capsule 200 02/16/22 Bran ch mg at 2100, Until Discontinu ed, Routine insulin NPH 2021-02 Yes 15U 15 Units, U nivers (HUMULIN N) 2-30 Subcutaneo it y of injection 03:00: [place], QHS, [place] 15 Units 00 First dose Medic al on [facility] Branch 02/16/22 at 2100, Until Discontinu ed, Routine atorvastati 2021-02 Yes 40mg 40 mg, Univ ers n (LIPITOR) 2-30 Oral, QHS, it y of tablet 40 03:00: First dose [place] mg 00 on [facility] 02/16/22 Branch at 2100, Until Discontinu ed, Routine levETIRAcet 2021-02 Yes 500mg 500 mg, Un araseli am (KEPPRA) 2-30 Oral, BID, it y of tablet 500 02:00: First dose [place] mg 00 on [facility] 02/16/22 Branch at 2000, Until Discontinu ed, Routine apixaban 2021-02 Yes 1358 5mg 5 mg, Univers (ELIQUIS) 2-30 Oral, BID, ity of tablet 5 mg 02:00: First dose [place] 00 on [facility] 02/16/22 Branch at 2000, Until Discontinu ed, Routine
Indicatio ns: Non-Valvul ar Atrial Fibrillati on furosemide 2021-02- No 40mg 40 mg, Univ ers (LASIX) 202-19 Slow IV ity of injection 02:00: 18:11 [place], [place] 40 mg 00 :42 Q12H, Medical First dose Branch on [facility] 02/16/22 at 2000, Until Discontinu ed, Routine metoprolol 2021-02- No 50mg 50 mg, Univ ers succinate 202-18 Oral, BID, ity of XL (TOPROL 02:00: 14:37 First dose [place] XL) tablet 00 :05 on [facility] Medical 50 mg 02/16/22 Branch at [...] Branch 02/16/22 at 1100, JACQUI semaglutide Yes [id number] .25mg inject Univers (OZEMPIC) 8-17 0.25 mg ity of 0.25 mg or 00:00: under the [place] 0.5 mg(2 00 skin Medical mg/1.5 mL) weekly. Branch PnIj semaglutide Yes [id number] .25mg inject Univers (OZEMPIC) 8-17 0.25 mg ity of 0.25 mg or 00:00: under the [place] 0.5 mg(2 00 skin Medical mg/1.5 mL) weekly. Branch PnIj semaglutide Yes [id number] .25mg inject Univers (OZEMPIC) 8-17 0.25 mg ity of 0.25 mg or 00:00: under the [place] 0.5 mg(2 00 skin Medical mg/1.5 mL) weekly. Branch PnIj semaglutide Yes [id number] .25mg inject Univers (OZEMPIC) 8-17 0.25 mg ity of 0.25 mg or 00:00: under the [place] 0.5 mg(2 00 skin Medical mg/1.5 mL) weekly. Branch PnIj semaglutide 0 Yes [id number] .25mg inject Univers (OZEMPIC) 8-17 0.25 mg ity of 0.25 mg or 00:00: under the [place] 0.5 mg(2 00 skin Medical mg/1.5 mL) weekly. Branch PnIj semaglutide 0 Yes [id number] .25mg inject Univers (OZEMPIC) 8-17 0.25 mg ity of 0.25 mg or 00:00: under the [place] 0.5 mg(2 00 skin Medical mg/1.5 mL) weekly. Branch PnIj semaglutide 0 Yes [id number] .25mg inject Univers (OZEMPIC) 8-17 0.25 mg ity of 0.25 mg or 00:00: under the [place] 0.5 mg(2 00 skin Medical mg/1.5 mL) weekly. Branch PnIj semaglutide Yes [id number] .25mg inject Univers (OZEMPIC) 8-17 0.25 mg ity of 0.25 mg or 00:00: under the [place] 0.5 mg(2 00 skin Medical mg/1.5 mL) weekly. Branch PnIj semaglutide Yes [id number] .25mg inject Univers (OZEMPIC) 8-17 0.25 mg ity of 0.25 mg or 00:00: under the [place] 0.5 mg(2 00 skin Medical mg/1.5 mL) weekly. Branch PnIj semaglutide Yes [id number] .25mg inject Univers (OZEMPIC) 8-17 0.25 mg ity of 0.25 mg or 00:00: under the [place] 0.5 mg(2 00 skin Medical mg/1.5 mL) weekly. Branch PnIj semaglutide 2021-0 Yes [id number] .25mg inject Univers (OZEMPIC) 8-17 0.25 mg ity of 0.25 mg or 00:00: under the [place] 0.5 mg(2 00 skin Medical mg/1.5 mL) weekly. Branch PnIj semaglutide Yes [id number] .25mg inject Univers (OZEMPIC) 8-17 0.25 mg ity of 0.25 mg or 00:00: under the [place] 0.5 mg(2 00 skin Medical mg/1.5 mL) weekly. Branch PnIj semaglutide 2021-0 Yes [id number] .25mg inject Univers (OZEMPIC) 8-17 0.25 mg ity of 0.25 mg or 00:00: under the [place] 0.5 mg(2 00 skin Medical mg/1.5 mL) weekly. Branch PnIj semaglutide 2021-0 Yes [id number] .25mg inject Univers (OZEMPIC) 8-17 0.25 mg [...] capsules in the evening. amLODIPine 2-0 Yes [id number] 10mg Take 1 U nivers 10 mg 6-13 tablet by ity of tablet 00:00: mouth [place] 00 daily. Medical Branch amLODIPine 2-0 Yes [id number] 10mg Take 1 U nivers 10 mg 6-13 tablet by ity of tablet 00:00: mouth [place] 00 daily. Medical Branch amLODIPine 2-0 Yes [id number] 10mg Take 1 U nivers 10 mg 6-13 tablet by ity of tablet 00:00: mouth [place] 00 daily. Medical Branch amLODIPine 2-0 Yes [id number] 10mg Take 1 U nivers 10 mg 6-13 tablet by ity of tablet 00:00: mouth [place] 00 daily. Medical Branch amLODIPine 2-0 Yes [id number] 10mg Take 1 U nivers 10 mg 6-13 tablet by ity of tablet 00:00: mouth [place] 00 daily. Medical Branch amLODIPine 2021-0 2022- No [id number] 10mg Take 1 Univers 10 mg 6-13 01-10 tablet by ity of tablet 00:00: 00:00 mouth [place] 00 :00 daily. Medical Branch amLODIPine 2021-0 2022- No [id number] 10mg Take 1 Univers 10 mg 6-13 [...] s: atrial fibrillati on OXCARBAZEPI 2-0 Yes [id number] TAKE 1 Univers [place] 150 mg 3-08 TABLET 2 X ity of tablet 00:00: A DAY FOR [place] 00 1 WEEK Medical THEN 2 Branch TABS 2X DAY FOR 1 WEEK 3 TABLES 2XADAY OXCARBAZEPI 2022-0 Yes [id number] TAKE 1 Univers [place] 150 mg 3-08 TABLET 2 X ity of tablet 00:00: A DAY FOR [place] 00 1 WEEK Medical THEN 2 Branch TABS 2X DAY FOR 1 WEEK 3 TABLES 2XADAY OXCARBAZEPI 2022-0 Yes [id number] TAKE 1 Univers [place] 150 mg 3-08 TABLET 2 X ity of tablet 00:00: A DAY FOR [place] 00 1 WEEK Medical THEN 2 Branch TABS 2X DAY FOR 1 WEEK 3 TABLES 2XADAY OXCARBAZEPI 2022-0 Yes [id number] TAKE 1 Univers [place] 150 mg 3-08 TABLET 2 X ity of tablet 00:00: A DAY FOR [place] 1 WEEK Medical THEN 2 Branch TABS 2X DAY FOR 1 WEEK 3 TABLES 2XADAY OXCARBAZEPI 2022-0 Yes [id number] TAKE 1 Univers [place] 150 mg 3-08 TABLET 2 X ity of tablet 00:00: A DAY FOR [place] 1 WEEK Medical THEN 2 Branch TABS 2X DAY FOR 1 WEEK 3 TABLES 2XADAY OXCARBAZEPI 2022-0 Yes [id number] TAKE 1 Univers [place] 150 mg 3-08 TABLET 2 X ity of tablet 00:00: A DAY FOR [place] 1 WEEK Medical THEN 2 Branch TABS 2X DAY FOR 1 WEEK 3 TABLES 2XADAY OXCARBAZEPI 2022-0 Yes [id number] TAKE 1 Univers NE 150 mg 3-08 TABLET 2 X ity of tablet 00:00: A DAY FOR [place] 00 1 WEEK Medical THEN 2 Branch TABS 2X DAY FOR 1 WEEK 3 TABLES 2XADAY OXCARBAZEPI 2022-0 Yes [id number] TAKE 1 Univers NE 150 mg 3-08 TABLET 2 X ity of tablet 00:00: A DAY FOR [place] 00 1 WEEK Medical THEN 2 Branch TABS 2X DAY FOR 1 WEEK 3 TABLES 2XADAY OXCARBAZEPI 2022-0 Yes [id number] TAKE 1 Univers NE 150 mg 3-08 TABLET 2 X ity of tablet 00:00: A DAY FOR [place] 00 1 WEEK Medical THEN 2 Branch TABS 2X DAY FOR 1 WEEK 3 TABLES 2XADAY OXCARBAZEPI 2022-0 Yes [id number] TAKE 1 Univers NE 150 mg 3-08 TABLET 2 X ity of tablet 00:00: A DAY FOR [place] 00 1 WEEK Medical THEN 2 Branch TABS 2X DAY FOR 1 WEEK 3 TABLES 2XADAY OXCARBAZEPI 2022-0 Yes [id number] TAKE 1 Univers NE 150 mg 3-08 TABLET 2 X ity of tablet 00:00: A DAY FOR [place] 1 WEEK Medical THEN 2 Branch TABS 2X DAY FOR 1 WEEK 3 TABLES 2XADAY OXCARBAZEPI 2022-0 Yes [id number] TAKE 1 Univers NE 150 mg 3-08 TABLET 2 X ity of tablet 00:00: A DAY FOR [place] 1 WEEK Medical THEN 2 Branch TABS 2X DAY FOR 1 WEEK 3 TABLES 2XADAY OXCARBAZEPI 2022-0 Yes [id number] TAKE 1 Univers NE 150 mg 3-08 TABLET 2 X ity of tablet 00:00: A DAY FOR [place] 1 WEEK Medical THEN 2 Branch TABS 2X DAY FOR 1 WEEK 3 TABLES 2XADAY OXCARBAZEPI 2022-0 Yes [id number] TAKE 1 Univers NE 150 mg 3-08 [...] 6am and 6pm insulin NPH 0 Yes [id number] 10U inject Univers (NOVOLIN N 04-13 10-15 ity of NPH U-100 00:00: Units [place] INSULIN) 00 under the Medica l 100 unit/mL skin every Br anch injection evening. insulin NPH Yes [id number] 10U inject Univers (NOVOLIN N 04-13 10-15 ity of NPH U-100 00:00: Units [place] INSULIN) 00 under the Medica l 100 unit/mL skin every Br anch injection evening. insulin NPH Yes [id number] 10U inject Univers (NOVOLIN N 04-13 10-15 ity of NPH U-100 00:00: Units [place] INSULIN) 00 under the Medica l 100 unit/mL skin every Br anch injection evening. insulin NPH 2022- No [id number] 10U inject Univers (NOVOLIN N 04-13 10-15 ity of NPH U-100 00:00: 00:00 Units [place] INSULIN) 00 :00 under the Medica l 100 unit/mL skin every Br anch injection evening. furosemide 0 Yes [id number] 20mg Take 1 Univers 20 mg 1-27 tablet by ity of tablet 00:00: mouth 00 daily. Medical Branch levETIRAcet 2021-0 Yes [id number] 500mg Take 1 Univers am 500 mg 1-27 tablet by ity o f tablet 00:00: mouth 2 00 (two) Medical times Branch daily. furosemide 2021-0 Yes [id number] 20mg Take 1 Univers 20 mg 1-27 tablet by ity of tablet 00:00: mouth [place] 00 daily. Medical Branch levETIRAcet 2021-0 Yes [id number] 500mg Take 1 Univers am 500 mg 1-27 tablet by ity o f tablet 00:00: mouth 2 [place] 00 (two) Medical times Branch daily. furosemide 2022-0 Yes [id number] 20mg Take 1 Univers 20 mg 1-27 tablet by ity of tablet 00:00: mouth 00 daily. Medical Branch levETIRAcet 2021-0 Yes [id number] 500mg Take 1 Univers am 500 mg 1-27 tablet by ity o f tablet 00:00: mouth (two) Medical times Branch daily. levETIRAcet 2021-0 Yes [id number] 500mg Take 1 Univers am 500 mg 1-27 tablet by ity o f tablet 00:00: mouth (two) Medical times Branch daily. levETIRAcet 2021-0 Yes [id number] 500mg Take 1 Univers am 500 mg 1-27 tablet by ity o f tablet 00:00: mouth (two) Medical times Branch daily. levETIRAcet 2021-0 Yes [id number] 500mg Take 1 Univers am 500 mg 1-27 tablet by ity o f tablet 00:00: mouth (two) Medical times Branch daily. levETIRAcet 2021-0 Yes [id number] 500mg Take 1 Univers am 500 mg 1-27 tablet by ity o f tablet 00:00: mouth (two) Medical times Branch daily. levETIRAcet 2021-0 Yes [id number] 500mg Take 1 Univers am 500 mg 1-27 tablet by ity o f tablet 00:00: mouth (two) Medical times Branch daily. levETIRAcet 2021-0 Yes [id number] 500mg Take 1 Univers am 500 mg 1-27 tablet by ity o f tablet 00:00: mouth (two) Medical times Branch daily. levETIRAcet 2021-0 Yes [id number] 500mg Take 1 Univers am 500 mg 1-27 tablet by ity o f tablet 00:00: mouth (two) Medical times Branch daily. levETIRAcet 2-0 Yes [id number] 500mg Take 1 Univers am 500 mg 1-27 tablet by ity o f tablet 00:00: mouth (two) Medical times Branch daily. levETIRAcet 2-0 Yes [id number] 500mg Take 1 Univers am 500 mg 1-27 tablet by ity o f tablet 00:00: mouth 2 [place] 00 (two) Medical times Branch daily. levETIRAcet 2021-0 Yes [id number] 500mg Take 1 Univers am 500 mg 1-27 tablet by ity o f tablet 00:00: mouth (two) Medical times Branch daily. levETIRAcet 2021-0 Yes [id number] 500mg Take 1 Univers am 500 mg 1-27 tablet by ity o f tablet 00:00: mouth 2 (two) Medical times Branch daily. furosemide 2021-0 3- No [id number] 20mg Take 1 Univers 20 mg 1-27 02-19 tablet by ity of tablet 00:00: 00:00 mouth [place] 00 :00 daily. Medical Branch pantoprazol 0 Yes [id number] 40mg Take 1 Univers e 40 mg EC 1-21 tablet by ity of tablet 00:00: mouth 00 daily. Medical Branch pantoprazol 0 Yes [id number] 40mg Take 1 Univers e 40 mg EC 1-21 tablet by ity of tablet 00:00: mouth 00 daily. Medical Branch pantoprazol 0 Yes [id number] 40mg Take 1 Univers e 40 mg EC 1-21 tablet by ity of tablet 00:00: mouth 00 daily. Medical Branch pantoprazol 2021-0 Yes [id number] 40mg Take 1 Univers e 40 mg EC 1-21 tablet by ity of tablet 00:00: mouth [place] 00 daily. Medical Branch pantoprazol 2021-0 Yes [id number] 40mg Take 1 Univers e 40 mg EC 1-21 tablet by ity of tablet 00:00: mouth 00 daily. Medical Branch pantoprazol 2021-0 Yes [id number] 40mg Take 1 Univers e 40 mg EC 1-21 tablet by ity of tablet 00:00: mouth [place] 00 daily. Medical Branch pantoprazol 2021-0 Yes [id number] 40mg Take 1 Univers e 40 mg EC 1-21 tablet by ity of tablet 00:00: mouth [place] 00 daily. Medical Branch pantoprazol 2021-0 Yes [id number] 40mg Take 1 Univers e 40 mg EC 1-21 tablet by ity of tablet 00:00: mouth [place] 00 daily. Medical Branch pantoprazol 2021-0 Yes [id number] 40mg Take 1 Univers e 40 mg EC 1-21 tablet by ity of tablet 00:00: mouth [place] 00 daily. Medical Branch pantoprazol Yes [id number] 40mg Take 1 Univers e 40 mg EC 1-21 tablet by ity of tablet 00:00: mouth [place] 00 daily. Medical Branch pantoprazol Yes [id number] 40mg Take 1 Univers e 40 mg EC 1-21 tablet by ity of tablet 00:00: mouth [place] 00 daily. Medical Branch pantoprazol Yes [id number] 40mg Take 1 Univers e 40 mg EC 1-21 tablet by ity of tablet 00:00: mouth [place] 00 daily. Medical Branch pantoprazol Yes [id number] 40mg Take 1 Univers e 40 mg EC 1-21 tablet by ity of tablet 00:00: mouth [place] 00 daily. Medical Branch pantoprazol Yes [id number] 40mg Take 1 Univers e 40 mg EC 1-21 tablet by ity of tablet 00:00: mouth [place] 00 daily. Medical Branch atorvastati 2020-02 Yes [id number] 40mg Take 1 Univers n 40 mg 2-14 tablet by ity of tablet 00:00: mouth at [place] 00 bedtime. Medical Branch insulin 2020-02 Yes 8U inject 8 Univer s regular 2-14 Units ity of human 00:00: under the [place] (NOVOLIN R 00 skin Medical REGULAR daily. Branch U-100 Daily at [facility]) 100 noon unit/mL injection atorvastati 2020-02 Yes [id number] 40mg Take 1 Univers n 40 mg 2-14 tablet by ity of tablet 00:00: mouth at [place] 00 bedtime. Medical Branch insulin 2020-02 Yes 8U inject 8 Univer s regular 2-14 Units ity of human 00:00: under the [place] (NOVOLIN R 00 skin Medical REGULAR daily. Branch U-100 Daily at [facility]) 100 noon unit/mL injection atorvastati 2020-02 Yes [id number] 40mg Take 1 Univers n 40 mg 2-14 tablet by ity of tablet 00:00: mouth at [place] 00 bedtime. Medical Branch insulin 2020-02 Yes 8U inject 8 Univer s regular 2-14 Units ity of human 00:00: under the [place] (NOVOLIN R 00 skin Medical REGULAR daily. Branch U-100 Daily at [facility]) 100 noon unit/mL injection atorvastati 2020-02 Yes [id number] 40mg Take 1 Univers n 40 mg 2-14 tablet by ity of tablet 00:00: mouth at [place] [address] bedtime. Medical Branch atorvastati 2020-02 Yes [id number] 40mg Take 1 Univers n 40 mg 2-14 tablet by ity of tablet 00:00: mouth at [place] [address] bedtime. Medical Branch atorvastati 2020-02 Yes [id number] 40mg Take 1 Univers n 40 mg 2-14 tablet by ity of tablet 00:00: mouth at [place] [address] bedtime. Medical Branch atorvastati 2020-02 Yes [id number] 40mg Take 1 Univers n 40 mg 2-14 tablet by ity of tablet 00:00: mouth at [place] [address] bedtime. Medical Branch atorvastati 2020-02 Yes [id number] 40mg Take 1 Univers n 40 mg 2-14 tablet by ity of tablet 00:00: mouth at [place] [address] bedtime. Medical Branch atorvastati 2020-02 Yes [id number] 40mg Take 1 Univers n 40 mg 2-14 tablet by ity of tablet 00:00: mouth at [place] [address] bedtime. Medical Branch atorvastati 2020-02 Yes [id number] 40mg Take 1 Univers n 40 mg 2-14 tablet by ity of tablet 00:00: mouth at [place] [address] bedtime. Medical Branch atorvastati 2020-02 Yes [id number] 40mg Take 1 Univers n 40 mg 2-14 tablet by ity of tablet 00:00: mouth at [place] [address] bedtime. Medical Branch atorvastati 2020-02 Yes [id number] 40mg Take 1 Univers n 40 mg 2-14 tablet by ity of tablet 00:00: mouth at [place] [address] bedtime. Medical Branch atorvastati 2020-02 Yes [id number] 40mg Take 1 Univers n 40 mg 2-14 tablet by ity of tablet 00:00: mouth at [place] [address] bedtime. Medical Branch atorvastati 2020-02 Yes [id number] 40mg Take 1 Univers n 40 mg 2-14 tablet by ity of tablet 00:00: mouth at [place] [address] bedtime. Medical Branch insulin 2020-023- No 8U [...] Completed Universit y of Conjugate, PCV13 00:00:00 [facility] dical (Prevnar 13) Branch Pneumococcal 13 2019-12-19 Completed Universit y of Conjugate, PCV13 00:00:00 [facility] dical (Prevnar 13) Branch Pneumococcal 13 2019-12-19 Completed Universit y of Conjugate, PCV13 00:00:00 [facility] dical (Prevnar 13) Branch Pneumococcal 13 2019-12-19 Completed Universit y of Conjugate, PCV13 00:00:00 [facility] dical (Prevnar 13) Branch Pneumococcal 13 2019-12-19 Completed Universit y of Conjugate, PCV13 00:00:00 [facility] dical (Prevnar 13) Branch Pneumococcal 13 2019-12-19 Completed Universit y of Conjugate, PCV13 00:00:00 [facility] dical (Prevnar 13) Branch Pneumococcal [...] Universit y of Conjugate, PCV13 00:00:00 [place] Nv dical (Prevnar 13) Branch Pneumococcal 13 2019-12-19 Completed Universit y of Conjugate, PCV13 00:00:00 [facility] dical (Prevnar 13) Branch Pneumococcal 13 2019-12-19 Completed Universit y of Conjugate, PCV13 00:00:00 [facility] dical (Prevnar 13) Branch Influenza [...] Dosage 2018-03-25 Completed Unive rsity of 00:00:00 [facility] Branch HEP B, Adult Dosage 2018-03-25 Completed Unive rsity of 00:00:00 [facility] Branch HEP B, Adult Dosage 2018-03-25 [...] Dosage 2018-03-25 Completed Unive rsity of 00:00:00 [facility] Branch HEP B, Adult Dosage 2018-03-25 [...] Dosage 2017-09-05 Completed Unive rsity of 00:00:00 [facility] Pneumococcal 13 2015-02-19 Completed Universit y [...] ical PPSV23 (PNEUMOVAX) Branch Pneumococcal 2011-02-19 Completed [place] o f Polysaccharide, 00:00:00 [place] Med ical PPSV23 (PNEUMOVAX) Branch Pneumococcal 2011-02-19 Completed [place] o f Polysaccharide, 00:00:00 [place] Med ical PPSV23 (PNEUMOVAX) Branch Vital Signs Vital Name Observation Time Observation Value Comments Source Systolic blood 2022-03-16 14:28:00 128 mm[Hg] Univer sity of pressure [facility] Diastolic blood 2022-03-16 14:28:00 70 mm[Hg] Unive rsity of [facility] Heart rate 2022-03-16 14:28:00 93 /min [facility] Body temperature 2022-03-16 14:28:00 35.67 Lizz [facility] Respiratory rate 2022-03-16 14:28:00 17 /min [facility] Body weight 2022-03-16 14:28:00 81.058 kg [facility] BMI 2022-03-16 14:28:00 34.90 kg/m2 [facility] Oxygen saturation in 2022-03-16 14:28:00 98 /min [facility] Arterial blood by [facility] Pulse oximetry Branch Systolic blood 2022-03-14 19:37:00 138 mm[Hg] Univer sity of pressure [facility] Diastolic blood 2022-03-14 19:37:00 87 mm[Hg] Unive rsity of pressure [facility] Heart rate 2022-03-14 19:37:00 94 /min [facility] Respiratory rate 2022-03-14 19:37:00 20 /min [facility] Body height 2022-03-14 19:37:00 152.4 cm [facility] Body weight 2022-03-14 19:37:00 80.74 kg [facility] BMI 2022-03-14 19:37:00 34.76 kg/m2 Universi ty of [place] [facility] Oxygen saturation in 2022-03-14 19:37:00 99 /min University of Arterial blood by [facility] Pulse oximetry Branch Systolic blood 2022-02-28 [...] 99 /min University of Arterial blood by [facility] Pulse oximetry Branch Systolic blood 2022-02-19 [...] 94 /min University of Arterial blood by [facility] Pulse oximetry Branch Body weight 2022-02-18 10:44:00 83.462 kg Universi ty of [place] [facility] BMI 2022-02-18 10:44:00 35.94 kg/m2 Universi ty of [place] [facility] Systolic blood 2022-02-16 16:07:00 116 mm[Hg] Univer sity of pressure [place] [facility] Diastolic blood 2022-02-16 16:07:00 71 mm[Hg] Unive rsity of pressure [place] [facility] Heart rate 2022-02-16 16:07:00 85 /min [facility] Body temperature 2022-02-16 16:07:00 36.89 Lizz [facility] Respiratory rate 2022-02-16 16:07:00 17 /min [facility] Body weight 2022-02-16 16:07:00 84.823 kg [facility] BMI 2022-02-16 16:07:00 36.52 kg/m2 [facility] Oxygen saturation in 2022-02-16 16:07:00 96 /min [facility] Arterial blood by [facility] Pulse oximetry [place] Systolic blood 2021-10-05 15:13:00 152 mm[Hg] Univer sity [facility] Diastolic blood 2021-10-05 15:13:00 77 mm[Hg] Unive [facility] Body height 2021-10-05 15:12:00 152.4 cm [facility] Body weight 2021-10-05 15:12:00 88.315 kg [facility] BMI 2021-10-05 15:12:00 38.02 kg/m2 [facility] Procedures Procedure Date / Time Performing Clinician Source Performed AUTHORIZATION FOR RELEASE 2022-03-23 06:01:00 Doctor Unassigned, [facility] [place] [facility] FLU 2022-03-16 14:43:42 Kia [facility] VACC([id number]),65+YR,0.5 Medica l Branch ML,IM,ADJUVANTED,QUAD(FLU AD) POCT GLUCOSE (AUTOMATED) 2022-02-19 17:59:00 Brii Samson [facility] XR CHEST 2 VW 2022-02-19 16:23:57 [facility] POCT GLUCOSE (AUTOMATED) 2022-02-19 13:45:00 Brii Samson [facility] MAGNESIUM 2022-02-19 12:23:00 Rocael Vaughan [facility] BASIC METABOLIC PANEL 2022-02-19 12:23:00 Rocael Vaughan [facility] (NA, K, CL, CO2, GLUCOSE, Medica l Branch BUN, CREATININE, CA) CBC WITH DIFF 2022-02-19 12:23:00 Rocael Vaughan [facility] N-TERMINAL PRO-BNP 2022-02-19 12:23:00 Rocael Vaughan [facility] POCT GLUCOSE (AUTOMATED) 2022-02-19 07:07:00 Brii Samson [facility] POCT GLUCOSE (AUTOMATED) 2022-02-19 06:10:00 OvMarcie youngi [facility] POCT GLUCOSE (AUTOMATED) 2022-02-19 03:34:00 OvBrii young [facility] POCT GLUCOSE (AUTOMATED) 2022-02-18 23:14:00 Brii Samson [facility] POCT GLUCOSE (AUTOMATED) 2022-02-18 17:29:00 Brii Samson [facility] POCT GLUCOSE (AUTOMATED) 2022-02-18 13:40:00 Marcie Samsoni Uni [facility] BASIC METABOLIC PANEL 2022-02-18 10:53:00 Rocael Vaughan [facility] (NA, K, CL, CO2, GLUCOSE, Medica l Branch BUN, CREATININE, CA) LIPID PANEL ([id number])(TOTAL 2022-02-18 10:53:00 [facility] CHOLE[facility], Medical Branch TRIGLYCERIDES, HDL) CBC WITH DIFF 2022-02-18 10:53:00 Rocael Vaughan [facility] N-TERMINAL PRO-BNP 2022-02-18 10:53:00 Rocael Vaughan [facility] POCT GLUCOSE (AUTOMATED) 2022-02-18 02:34:00 Brii Samson [facility] POCT GLUCOSE (AUTOMATED) 2022-02-17 22:16:00 Marcie Samsoni [facility] POCT GLUCOSE (AUTOMATED) 2022-02-17 17:45:00 OvBrii young [facility] POCT GLUCOSE (AUTOMATED) 2022-02-17 14:01:00 [facility]TTE[facility] 2022-02-17 13:56:00 Chapin [facility] COMPLETE W/ CONTRAST Medical Bra nch MAGNESIUM 2022-02-17 09:47:00 Chapin [facility] BASIC METABOLIC PANEL 2022-02-17 09:47:00 Chapin [facility] (NA, K, CL, CO2, GLUCOSE, Medica l Branch BUN, CREATININE, CA) N-TERMINAL PRO-BNP 2022-02-17 09:47:00 Chapin [facility] POCT GLUCOSE (AUTOMATED) 2022-02-17 03:55:00 Chapin [facility] POCT GLUCOSE (AUTOMATED) 2022-02-17 03:16:00 Chapin [facility] URINALYSIS 2022-02-16 18:07:00 Bird [facility] XR CHEST 1 VW 2022-02-16 17:06:49 Bird [facility] LIPASE 2022-02-16 16:59:00 Bird [facility] TROPONIN I 2022-02-16 16:59:00 Bird [facility] HEPATIC FUNCTION PANEL 2022-02-16 16:59:00 Bird [facility] ([id number]) (ALB,T.PRO,BILI [facility] T,BU/BC,ALT,AST,ALK PHOS) BASIC METABOLIC PANEL 2022-02-16 16:59:00 Bird [facility] (NA, K, CL, CO2, GLUCOSE, Medica l Branch BUN, CREATININE, CA) CBC WITH DIFF 2022-02-16 16:59:00 Bird [facility] GLYCOSYLATED HEMOGLOBIN 2022-02-16 16:59:00 Chapin [facility] (A1C) [facility] N-TERMINAL PRO-BNP 2022-02-16 16:59:00 Marina Pang [facility] COVID-19 (ID NOW RAPID 2022-02-16 16:59:00 Marina Pang [facility] TESTING) Medical Branch LAB ONLY COVID 2022-02-16 16:59:00 Marina Pang [place] [facility] [place] INTERPRETATION [facility] HB ECG ROUTINE & RHYTHM 2022-02-16 16:52:36 Marina Pang [facility] CONSENT/REFUSAL FOR 2022-02-16 16:40:37 Doctor Unassigned, [facility] DIAGNOSIS AND TREATMENT [place] [facility] POCT HEMOGLOBIN A1C TEST 2021-10-05 15:15:00 Amita Gomez [facility] Encounters Start End Encounter Admission Attending Care Care Encounter Source Date/Time Date/Time Type Type Clinicians Facility Department ID 2022-06-14 Outpatient Lamb, STLMLC [facility] [id number] Common 12:46:01 Elaine [id number] [facility] 2022-06-02 Outpatient Lamb, [facility] [id number] Common 14:48:01 Elaine [id number] [facility] 2020-12-17 Emergency [facility] [id number] Univers 21:39:43 [facility] 2020-12-17 [facility] [id number] Univers 18:26:55 alvino BARAKAT [facility] 2020-12-17 Emergency [facility] [id number] Univers 16:06:19 [facility] 2022-06-15 2022-06-15 Outpatient Moustapha ADAM [facility] [id number] Univers 09:00:00 09:00:00 SILVERIO [facility] 2022-04-27 2022-04-27 Outpatient Moustapha HEATH [facility] [id number] Univers 10:20:00 10:20:00 SRIRAM grove [facility] 2022-03-27 2022-03-27 Refill Kumar [facility] [id number] Univers 00:00:00 00:00:00 Qiachaim PALOMO [id number] ity of [facility] [id number] [phone] Nv dical NAL 059 [facility] 2022-03-23 2022-03-23 Orders Doctor YANA [id number] Univers 00:00:00 00:00:00 Only Unassigned, CARLOS [id number] ity of Community [facility] [id number] Bernabe as [phone] [address] 2022-03-22 2022-03-22 Adult Parole Officer 2, Adc Lab [facility] [id number] Univers 08:00:00 08:15:00 Visit Silverio Adam [id number] ity of [facility] [id number] [phone] Nv dical NAL 353 [facility] 2022-03-22 2022-03-22 [facility] [id number] Univers 08:00:00 08:00:00 SILVERIO ity of [facility] 2022-03-16 2022-03-16 Outpatient R [facility] [id number] Univers 08:40:00 09:58:33 SILVERIO ity [facility] 2022-03-16 2022-03-16 Office [facility] [id number] Univers 08:40:00 09:00:00 Visit Silverio [place] [id number] i ty of [facility] [id number] [phone] Nv dical NAL 059 [facility] 2022-03-14 2022-03-14 Office [facility] [id number] Univers 13:40:00 14:00:00 Visit Sriram [place] [id number] ity of [facility] [id number] [phone] Nv dical NAL 059 [facility] 2022-03-142022-03-14 Outpatient R KUMAR, [facility] [id number] Univers 13:40:00 13:40:00 SRIRAM de olive[place] o f [facility] 2022-03-09 2022-03-09 Outpatient R KIA, [facility] [id number] Univers 09:59:09 23:59:00 SILVERIO ity of [facility] 2022-02-28 2022-02-28 Outpatient R KUMAR, [facility] [id number] Univers 09:00:00 09:16:53 SRIRAM de [place] o f [facility] 2022-02-28 2022-02-28 [facility] [id number] Univers 09:00:00 09:16:53 Visit Sriram [place] [id number] ity of [id number] [phone] [facility] 059 Branch [facility] 2022-02-21 2022-02-21 Transition JONO Galvan 1.2.840.114 [id number] Univers 00:00:00 00:00:00 of Care Nara MG 350.1.13.10 it y of [place] [id number] [facility] [address] 2022-02-16 2022-02-19 Inpatient X CHAPIN [facility] SAMI [id number] Univers 10:48:00 16:07:00 BRII ity of [facility] 2022-02-16 2022-02-19 [facility] Stephen PangeLeilani [facility] 1.2.840.11 [id number] Univers 10:48:00 16:07:00 Encounter Marcie Samsonkhadar [place] 350.1.13.10 it[place] of [place] [id number] [facility] [address] 2022-02-16 2022-02-16 Fang Govea [facility] 1.2.840.114 [id number] Univers 09:45:00 10:05:00 Care Unknown, Attending HEALTH 350.1.13.10 ity of [place] 4.2.7.2.686 Bernabe as HUMPHREY?BLEA [id number] [facility] [address] MEDICAL OFFICE BUILDING 2022-02-16 2022-02-16 Outpatient R CASSI [facility] [id number] Univers 09:45:00 09:45:00 FANG de oliveira [facility] 2022-01-31 2022-01-31 Outpatient R KUMAR, [facility] [id number] Univers 14:20:00 14:20:00 SRIRAM grove [facility] 2022-01-31 2022-01-31 Outpatient R KUMAR, [facility] [id number] Univers 14:20:00 14:20:00 SRIRAM de oliveira o maine [facility] 2021-12-02 2021-12-02 Outpatient R KIA [facility] [id number] Univers 10:20:00 10:20:00 [facility] 2021-11-25 2021-11-25 Outpatient R KIA [facility] [id number] Univers 10:20:00 10:20:00 [facility] 2021-11-25 2021-11-25 Outpatient R KIA [facility] [id number] Univers 10:20:00 10:20:00 [facility] 2021-10-05 2021-10-05 Outpatient R AMITA GOMEZ [facility] [id number] Univers 10:30:00 11:22:11 AMITA GOMEZ [facility] 2021-10-05 2021-10-05 Office Amita Gomez [facility] 1.2.840.114 [id number] Univers 10:30:00 11:22:11 Visit HEALTH 350.1.13.10 it y of [place] 4.2.7.2.686 Bernabe as HUMPHREY?BLEA [id number] [facility] [address] MEDICAL OFFICE BUILDING 2021-09-21 2021-09-21 [facility]phone [facility] 1.2.312.894 [id number] Univers 00:00:00 00:00:00 Wentong HEALTH 350.1.13.10 it y of [place] 4.2.7.2.686 Bernabe as HUMPHREY?BLEA [phone] Nv dical KNEY [address] MEDICAL OFFICE BUILDING 2021-08-19 2021-08-19 Outpatient R SEWANI, [facility] [id number] Univers 11:20:00 11:20:00 SILVERIO [facility] 2021-08-16 2021-08-16 Outpatient R CASTLE, [facility] [id number] Univers 13:00:00 13:00:00 WENTONG [facility] 2021-08-01 2021-08-01 Office Kumar, [facility] 1.2.840.114 [id number] Univers 13:40:00 14:02:37 Visit Sriram [place] 350.1.13.10 ity jarek [place] [id number] [address] 2021-08-01 2021-08-01 Outpatient R KUMAR, [facility] [id number] Univers 13:40:00 14:02:37 QIACHAIM ity o [facility] 2021-08-01 2021-08-01 Outpatient R KUMAR, [facility] [id number] Univers 13:40:00 13:40:00 QIANGJUN ity o [facility] 2021-08-01 2021-08-01 Outpatient R KUMAR, [facility] [id number] Univers 13:40:00 13:40:00 QIANGJUN ity o [facility] 2021-08-01 2021-08-01 Outpatient R KUMAR, [facility] [id number] Univers 13:40:00 13:40:00 QIANGJUN ity o [facility] 2021-08-01 2021-08-01 Outpatient R KUMAR, [facility] [id number] Univers 13:40:00 13:40:00 QIANGJUN ity o [facility] 2021-07-22 2021-07-22 Refill Kumar, [facility] 1.2.840.114 [id number] Univers 00:00:00 00:00:00 Sriram [place] 350.1.13.10 ity jarek [place].2.[place] [phone] Nv dic[address] 2021-06-24 2021-06-24 Outpatient R KIA [facility] [id number] Univers 10:00:00 10:46:29 [facility] 2021-06-24 2021-06-24 Office [facility] 1.2.840.114 [id number] Univers 10:00:00 10:20:00 Visit Silverio PAL[place]O 350.1.13.10 i ty of [place] 4.2.7.2.686 Bernabelauryn CALIXTOMANUELA [phone] [address] 2021-06-24 2021-06-24 Outpatient R KIA [facility] [id number] Univers 10:00:00 10:00:00 [facility] 2021-06-24 2021-06-24 [facility] [id number] Univers 10:00:00 10:00:00 [facility] 2021-06-10 2021-06-10 Outpatient R KIA [facility] [id number] Univers 10:46:49 23:59:00 [facility] 2021-05-23 2021-05-23 Outpatient R KUMAR, [facility] [id number] Univers 15:00:00 15:00:00 SRIRAM diamond [facility] 2021-05-04 2021-05-04 Outpatient R KUMAR, [facility] [id number] Univers 08:00:00 23:59:00 SRIRAM de oliveira o [facility] 2021-05-04 2021-05-04 Outpatient R KUMAR, [facility] [id number] Univers 08:00:00 08:00:00 RSIRAM de oliveira o [facility] 2021-04-28 2021-04-28 Outpatient R BROOKS [facility] [id number] Univers 13:00:00 14:03:10 DIANN [facility] 2021-04-28 2021-04-28 Office [facility] .2.617.232 [id number] Univers 13:00:00 14:03:10 Visit Diann DEWEY 350.1.13.10 i ty [facility] [place].2.7.2.[place] [facility] [id number] Nv dical NAL [address] [facility] 2021-04-22 2021-04-22 Outpatient Moustapha TRIMBLEShweta MITCHELL [facility] [id number] Univers 15:40:00 15:40:00 MITCHELL GARCIA kelsie [facility] 2021-04-22 2021-04-22 Outpatient Moustapha JOSEMITCHELL Rock [facility] [id number] Univers 15:40:00 15:40:00 MITCHELL GARCIA kelsie [facility] 2021-04-22 2021-04-22 Outpatient Moustapha JOSEMITCHELL Rock [facility] [id number] Univers 15:40:00 15:40:00 MITCHELL GARCIA [facility] 2021-04-18 2021-04-19 Emergency X [facility] ERT [id number] Univers 22:42:00 02:27:00 BERNIEUSHO ity [facility] 2021-04-18 2021-04-19 Emergency [facility] 1.2.840.114 [id number] Univers 22:42:00 02:27:00 Celia [place] 350.1.13.10 ity [facility] [place].2.7.2.[place] [id number] [facility] [address] 2021-04-18 2021-04-19 Emergency [facility] [id number] Univers 22:42:00 02:27:00 FOLUSHO ity [facility] 2021-04-18 2021-04-18 Orders Doctor MILLAN 1.2.840.114 [id number] Univers 00:00:00 00:00:00 Only Unassigned, CARLOS 350.1.13.10 ity of [place] [facility] 4.2.7.2.686 Bernabe as [id number] [facility] [address] 2021-04-15 2021-04-15 [facility] 1.2.857.388 [id number] Univers 12:42:22 23:59:00 Encounter Clare [place] 350.1.13.10 ity of [place].2.686 [place] [id number] [facility] [address] 2021-04-15 2021-04-15 Outpatient R KUMAR [facility] [id number] Univers 10:00:00 10:33:44 SRIRAM ity o f [facility] 2021-04-15 2021-04-15 Office Kumar, [facility] 1.2.840.114 [id number] Univers 10:00:00 10:33:44 Visit Sriram [place] 350.1.13.10 ity [facility] 4.2.7.2.686 [place] [facility] [phone] Nv dical NAL [address] BUILDING 2021-04-15 2021-04-15 Outpatient R KUMAR [facility] [id number] Univers 10:00:00 10:33:44 SRIRAM de oliveira o [facility] 2021-04-15 2021-04-15 Outpatient R MAJOR [facility] [id number] Univers 00:00:00 00:00:00 WONDIFUL martyy o f [facility] 2021-04-15 2021-04-15 Orders Doctor MILLAN 1.2.840.114 [id number] Univers 00:00:00 00:00:00 Only Unassigned, CARLOS 350.1.13.10 [facility] 4.2.7.2.686 Bernabe as [id number] [facility] [address] 2021-04-13 2021-04-13 Outpatient R TIN [facility] [id number] Univers 10:00:00 11:12:56 [facility] ity [facility] 2021-04-13 2021-04-13 Office Tin, [facility] 1.2.840.114 [id number] Univers 10:00:00 11:12:56 Visit Critical access hospital 350.1.13.10 it y of [place] 4.2.7.2.686 Bernabe as HUMPHREY?BLEA [id number] Nv dical KNEY [address] MEDICAL OFFICE BUILDING 2021-04-13 2021-04-13 Outpatient R TIN [facility] [id number] Univers 10:00:00 11:12:56 WENTONG ity [facility] 2021-04-13 2021-04-13 Outpatient R CASTLE [facility] [id number] Univers 10:00:00 10:00:00 WENTONG ity of [facility] 2021-04-13 2021-04-13 Outpatient R TIN [facility] [id number] Univers 10:00:00 10:00:00 WENTONG ity of [facility] 2021-04-13 2021-04-13 Outpatient R CASTLE [facility] [id number] Univers 10:00:00 10:00:00 WENTONG ity [facility] 2021-04-12 2021-04-12 Nurse YANA Sanders 1.2.749.283 [id number] Univers 00:00:00 00:00:00 Triage Luis Alberto CARLOS 350.1.13.10 it y of [facility] 4.2.7.2.686 Bernabe as [id number] [address] 2021-04-07 2021-04-07 [facility]phone [facility] 1.2.088.028 [id number] Univers 00:00:00 00:00:00 Sriram [place] 350.1.13.10 ity of [place].2.[place].2.[place] [phone] Nv dical NAL [address] [place] [address] 2021-04-01 2021-04-01 Outpatient R KIA [facility] [id number] Univers 10:00:00 10:40:52 SILVERIO ity [facility] 2021-04-01 2021-04-01 Office [facility] 1.2.840.114 [id number] Univers 10:00:00 10:40:52 Visit Silverio [place] 350.1.13.10 i ty of [place] 4.2.7.2.[place] [id number] Nv dical NAL [address] [place] [address] 2021-03-30 2021-03-30 Telephone [facility] 1.2.840.114 [id number] Univers 00:00:00 00:00:00 [facility] 350.1.13.10 ity of [place] 4.2.7.2.686 Bernabe as HUMPHREY?BLEA [phone] Me dical [address] OFFICE [facility] 2021-03-30 2021-03-30 Telephone Jose [facility] 1.2.840.114 [id number] Univers 00:00:00 00:00:00 [facility] 350.1.13.10 ity [facility] 4.2.7.2.686 Bernabe as HUMPHREY?ARLETTE [phone] [address] OFFICE [facility] 2021-03-29 2021-03-29 Outpatient MITCHELL TORRES [facility] [id number] Univers 08:00:00 09:38:08 JOSE MITCHELL kelsie [facility] 2021-03-29 2021-03-29 Outpatient MITCHELL TORRES [facility] [id number] Univers 08:00:00 09:38:08 MITCHELL GARCIA kelsie [facility] 2021-03-29 2021-03-29 Outpatient MITCHELL TORRES [facility] [id number] Univers 08:00:00 08:00:00 MITCHELL GARCIA [facility] 2021-03-29 2021-03-29 Orders Doctor MILLAN 1.2.840.114 [id number] Univers 00:00:00 00:00:00 Only Unassigned, CARLOS 350.1.13.10 ity of [facility] 4.2.7.2.686 Bernabe as [phone] [address] 2021-03-23 2021-03-23 Outpatient Moustapha HEATH [facility] [id number] Univers 15:40:00 16:06:08 SRIRAM de oliveira o f [facility] 2021-03-23 2021-03-23 Office [facility] 1.2.840.114 [id number] Univers 15:40:00 16:06:08 Visit Sriram [place] 350.1.13.10 ity [facility] 4.2.7.2.[place] [phone] Nv jamilahelinor [facility] 059 [facility] 2021-03-23 2021-03-23 Outpatient Moustapha HEATH [facility] [id number] Univers 16:00:00 16:00:00 SRIRAM de oliveira o f [facility] 2021-03-22 2021-03-22 Telephone [facility] 1.2.840.114 [id number] Univers 00:00:00 00:00:00 Diann DEWEY 350.1.13.10 i ty of [place].2.[place].2.[place] [phone] Nv dical NAL 188 [facility] 2021-03-21 2021-03-21 Adult Parole Officer [place], Adc Lab Main [facility] 1.2.8 40.114 [id number] Univers 14:45:00 15:00:00 [facility] 350.1 .13.10 ity of [place].2.[place] [id number] [facility] 353 [facility] 2021-03-21 2021-03-21 Outpatient R [facility] [id number] Univers 14:45:00 14:45:00 [facility] 2021-03-21 2021-03-21 Outpatient R [facility] [id number] Univers 14:45:00 14:45:00 [facility] 2021-03-21 2021-03-21 Orders Doctor YANA 1.2.840.114 [id number] Univers 00:00:00 00:00:00 Only Unassigned, CARLOS 350.1.13.10 ity of [place] [facility] 4.2.7.2.686 Bernabe as [id number] [facility] [address] 2021-03-21 2021-03-21 Telephone HiramclemenciarussellGLENNA 1.2.840.114 [id number] Univers 00:00:00 00:00:00 [facility] 350.1.13.10 i ty of [facility] 4.2.7.2.[place] [id number] [facility] [address] 2021-03-20 2021-03-20 Nurse YANA Bautista 1.2.840.114 [id number] Univers 00:00:00 00:00:00 Triage Cielo CARLOS 350.1.13.10 it y of HOSPITAL 4.2.7.2.686 Bernabe as [id number] [facility] [address] 2021-03-18 2021-03-18 Emergency [facility] 1.2.840.114 [id number] Univers 17:02:00 22:45:00 Ananya [place] 350.1.13.10 ity of [place] 4.2.7.2.686 [place] [id number] [facility] [address] 2021-03-18 2021-03-18 Emergency [facility] ERT [id number] Univers 17:02:00 17:02:00 ANANYA itkelsie [facility] 2021-03-18 2021-03-18 Emergency X [facility] ERT [id number] Univers 16:34:00 16:34:00 itkelsie [facility] 2021-03-18 2021-03-18 Outpatient R EPI [facility] [id number] Univers 15:00:00 16:15:48 JENNIE martykelsie [facility] 2021-03-18 2021-03-18 Office [facility] 1.2.840.114 [id number] Univers 15:00:00 16:15:48 Visit [facility] 350.1.13.10 it y of [place] 4.2.7.2.686 Bernabe as HUMPHREY?BLEA [phone] [address] MEDICAL OFFICE BUILDING 2021-03-18 2021-03-18 Outpatient [facility] ERT [id number] Univers 15:00:00 16:15:48 JENNIE alvino [facility] 2021-03-18 2021-03-18 Outpatient R EPI [facility] [id number] Univers 15:00:00 16:15:48 [facility] 2021-03-18 2021-03-18 Transition JONO Galvan 1.2.840.114 [id number] Univers 00:00:00 00:00:00 of Care Nara MG 350.1.13.10 it y [facility] 4.2.7.2.686 [place] [id number] [facility] [address] 2021-03-12 2021-03-[address] [facility] [id number] Univers 12:11:00 15:43:00 [facility] 2021-03-12 2021-03-17 Hospital AaronDamien nieto 1.2.840 .114 [id number] Univers 12:11:00 15:43:00 Encounter Soni Hunter hihina CARLOS 350.1.13.10 ity of [facility] 4.2.7.2.686 [place] [id number] [facility] [address] 2021-03-12 2021-03-[address] [facility] [id number] Univers 12:11:00 15:43:00 [facility] ity [facility] 2021-03-17 2021-03-17 Nurse Esperanza Cronin 1.2.840.114 [id number] Univers 00:00:00 00:00:00 Triage CARLOS 350.1.13.10 it y of [facility] 4.2.7.2.686 Bernabe as [id number] [facility] [address] 2021-03-16 2021-03-16 Case Willian, [facility] 1.2.840.114 [id number] Univers 00:00:00 00:00:00 Management Wissam Y HEALTH 350.1.13.10 ity of [place] [facility] 4.2.7.2.[place] [id number] [facility] [address] 2021-03-16 2021-03-16 Case Willian, [facility] 1.2.840.114 [id number] Univers 00:00:00 00:00:00 Management Wissam Y HEALTH 350.1.13.10 ity of [place] [facility] 4.2.7.2.[place] [id number] [facility] [address] 2021-03-11 2021-03-11 Transition JONO Galvan 1.2.840.114 [id number] Univers 00:00:00 00:00:00 of Care Nara CASEYY 350.1.13.10 it y of [place] 4.2.7.2.686 [place] [id number] [facility] [address] 2021-03-11 2021-03-11 Telephone [facility] 1.2.107.006 [id number] Univers 00:00:00 00:00:00 Sriram [place] 350.1.13.10 ity [facility] 4.2.7.2.[place] [id number] Nv dical NAL 059 [facility] 2021-03-07 2021-03-10 Outpatient X ANUJ GONZALES [facility] SAMI [id number] Univers 08:28:00 14:20:00 ity of [facility] 2021-03-07 2021-03-10 Emergency Hudson Wolfe 1.2.840. 114 [id number] Univers 08:28:00 14:20:00 Anuj Gonzales Leslie RENEE 350.1.13.1 0 ity [facility] 4.2.7.2.686 Bernabe as [id number] [facility] [address] 2021-03-07 2021-03-10 Outpatient X ANUJ GONZALES [facility] SAMI [id number] Univers 08:28:00 14:20:00 ity of [facility] 2021-03-09 2021-03-09 Surgery Misael Castro [facility] 1.2.840.114 [id number] Univers 09:36:00 10:16:00 David ABBASI 350.1.13.10 it y of [facility] 4.2.7.2.686 Bernabe as BLDG [id number] [facility] [address] 2021-03-03 2021-03-03 Out[facility] [id number] Univers 14:00:00 14:44:31 SHANTEL ity [facility] 2021-03-03 2021-03-03 Office [facility] 1.2.840.114 [id number] Univers 14:00:00 14:44:31 Visit Shantel [place] 350.1.13.10 ity [facility] 4.2.7.2.686 [place] [phone] Nv dical NAL 188 [facility] 2021-03-03 2021-03-03 Outpatient R BROOKS [facility] [id number] Univers 14:00:00 14:00:00 DIANN ity [facility] 2021-02-08 2021-02-08 Office Sabina Barba [facility] 1.2.840.114 [id number] Univers 15:30:00 16:44:10 Visit KHLOE 350.1.13.10 it y of [place]2.[place].2.[place] [id number] [address] 2021-02-08 2021-02-08 Outpatient R SABINA BARBA [facility] [id number] Univers 15:30:00 16:44:10 ity [facility] 2021-02-08 2021-02-08 Outpatient R SABINA BARBA [facility] [id number] Univers 15:30:00 16:44:10 ity [facility] 2021-02-08 2021-02-08 Outpatient R SABINA BARBA [facility] [id number] Univers 15:30:00 15:30:00 ity [facility] 2021-02-08 2021-02-08 Outpatient R SABINA BARBA [facility] [id number] Univers 15:30:00 15:30:00 [facility] 2021-02-03 2021-02-03 [facility] 1.2.840.114 [id number] Univers 00:00:00 00:00:00 Management Wondiful A HEALTH 350.1.13.10 ity of [place] 4.2.7.2.686 Bernabe as HUMPHREY?BLEA [id number] [facility] [address] MEDICAL OFFICE BUILDING 2021-02-01 2021-02-01 Office [facility] 1.2.840.114 [id number] Univers 15:30:00 16:58:42 Visit Ericka HEALTH 350.1.13.10 it y of [place] 4.2.7.2.686 Bernabe as HUMPHREY?BLEA [id number] [facility] [address] MEDICAL OFFICE BUILDING 2021-02-01 2021-02-01 Out[facility] [id number] Univers 15:30:00 16:58:42 ERICKA ity [facility] 2021-02-012021-02-01 Outpatient R MEKA [facility] [id number] Univers 16:30:00 16:30:00 ERICKA kelsie [facility] 2021-02-01 2021-02-01 Adult Parole Officer Lab, [place] [facility] 1.2.840.1 14 [id number] Univers 16:02:42 16:17:42 [facility] 350.1.13.10 [facility] 4.2.7.2.686 Bernabe as HUMPHREY?BLEA [id number] [address] OFFICE [facility] 2021-02-01 2021-02-01 Outpatient R MEKA [facility] [id number] Univers 15:30:00 15:30:00 ERICKA [facility] 2021-01-31 2021-01-31 Outpatient [facility] [id number] Univers 13:40:00 13:44:29 [facility] 2021-01-31 2021-01-31 Outpatient [facility] [id number] Univers 13:40:00 13:44:29 SRIRAM [facility] 2021-01-31 2021-01-31 Office [facility] 1.2.840.114 [id number] Univers 13:18:52 13:44:29 [facility] 350.1.13.10 ity of [place] 4.2.7.2.[place] [id number] [facility] 059 [facility] 2021-01-31 2021-01-31 Outpatient R [facility] [id number] Univers 13:40:00 13:40:00 SRIRAM y o [facility] 2021-01-31 2021-01-31 Adult Parole Officer Lab, Royal - Wilfred [facility] 1.2.840.1 14 [id number] Univers 10:03:00 10:18:00 Visit Dimitri [id number] [facility] [id number] Bernabe as HUMPHREY?BLEA [phone] [address] MEDICAL OFFICE [facility] 2021-01-31 2021-01-31 [facility] 1.2.840.114 [id number] Univers 09:22:40 10:03:18 Visit Wondiful [facility] 350.1.13.10 ity of [place] [id number] Bernabe as HUMPHREY?BLEA [phone] Nv sherif [place] [address] MEDICAL OFFICE [facility] 2021-01-31 2021-01-31 [facility] [id number] Univers 09:30:00 09:30:00 WONDIFUL ity o f [facility] 2021-01-11 2021-01-11 Case [facility] 1.2.840.114 [id number] Univers 00:00:00 00:00:00 Management Wondiful [facility] [id number] ity of [place] [id number] Bernabe as HUMPHREY?BLEA [phone] Nv sherif [place] [address] MEDICAL OFFICE [facility] 2021-01-07 2021-01-07 [facility] [id number] Univers 16:30:00 23:59:00 WONDIFUL ity o f [facility] 2021-01-07 2021-01-07 Hospital [facility] [id number] Univers 16:30:00 23:59:00 Encounter Wondiful [facility] 350.1.13.10 ity of [place] [id number] Bernabe as HUMPHREY?BLEA [phone] Nv sherif HO[place] [address] MEDICAL OFFICE [facility] 2021-01-07 2021-01-07 Adult Parole Officer Lab, Ang - Db [facility] 1.2.840.1 14 [id number] Univers 16:36:52 16:51:52 Visit Clare Gonsalves [facility] 350.1.13.1 0 ity of [place] [id number] Bernabe as HUMPHREY?BLEA [phone] Nv sherif [place] [address] MEDICAL OFFICE [facility] 2021-01-07 2021-01-07 [facility] [id number] Univers 16:15:00 16:37:00 WONDIFUL ity o f [facility] 2021-01-07 2021-01-07 Office [facility] 1.2.840.114 [id number] Univers 15:34:25 16:37:00 Visit Wondiful [facility] 350.1.13.10 ity of [place] [id number] Bernabe as HUMPHREY?BLEA [phone] [address] MEDICAL OFFICE [facility] 2021-01-05 2021-01-05 Telephone [facility] 1.2.840.114 [id number] Univers 00:00:00 00:00:00 Wondiful A HEALTH 350.1.13.10 ity of [place] 4.2.7.2.686 Bernabe as HUMPHREY?BLEA [phone] [address] OFFICE [facility] 2020-12-28 2020-12-28 Outpatient R KIA [facility] [id number] Univers 14:00:00 14:00:00 SILVERIO ity of [facility] 2020-12-27 2020-12-27 Outpatient R MAJOR [facility] [id number] Univers 13:14:51 23:59:00 WONDIFUL ity o f [facility] 2020-12-27 2020-12-27 [facility] 1.2.318.225 [id number] Univers 13:00:00 23:59:00 Encounter Wondiful A [place] 350.1.13.10 ity of [place] 4.2.7.2.686 [place] [facility] [phone] [address] 2020-12-27 2020-12-27 [facility] [id number] Univers 00:00:00 00:00:00 WONDIFUL ity o f [facility] 2020-12-13 2020-12-13 Telephone [facility] 1.2.840.114 [id number] Univers 00:00:00 00:00:00 Wondiful A Health 350.1.13.10 ity of [place] 4.2.7.2.686 Bernabe as Humphrey?Blea [phone] [address] Medical Office [facility] 2020-12-132020-12-13 Telephone Major DARYL 1.2.840.114 [id number] Univers 00:00:00 00:00:00 Wondiful A Health 350.1.13.10 ity of [place] 4.2.7.2.686 Bernabe as Humphrey?Blea [phone] [address] Office [facility] 2020-12-06 2020-12-06 Telephone Major DARYL 1.2.840.114 [id number] Univers 00:00:00 00:00:00 Wondiful A Health 350.1.13.10 ity of [place] 4.2.7.2.686 Bernabe as Humphrey?Blea [phone] [address] 2020-12-03 2020-12-03 Adult Parole Officer Lab, Ang - Db [facility] 1.2.840.1 14 [id number] Univers 16:48:38 17:03:11 Visit Clare Gonsalves Health 350.1.13.1 0 ity of [place] 4.2.7.2.686 Bernabe as Humphrey?Blea [phone] [address] Office [facility] 2020-12-03 2020-12-03 Adult Parole Officer Lab, Ang - Db [facility] 1.2.840.1 14 [id number] Univers 16:48:38 17:03:11 Visit Clare Gonsal[facility] Health 350.1.13.1 0 ity of [place] 4.2.7.2.686 Bernabe as Humphrey?Blea [phone] [address] Office [facility] 2020-12-03 2020-12-03 Adult Parole Officer Lab, Ang - Db [facility] 1.2.840.1 14 [id number] Univers 16:48:38 17:03:11 Visit Clare Gonsalves HEALTH 350.1.13.1 0 ity of [place] 4.2.7.2.686 Bernabe as HUMPHREY?BLEA [phone] [address] OFFICE [facility] 2020-12-03 2020-12-03 Office JAYNE [facility] 1.2.840.114 [id number] Univers 15:32:14 16:49:03 Visit Wondiful A Health 350.1.13.10 ity of [place] 4.2.7.2.686 Bernabe as Humphrey?Blea [phone] Nv sherif kney 044 [facility] Office [facility] 2020-12-03 2020-12-03 Outpatient R MAJOR [facility] [id number] Univers 15:45:00 15:45:00 WONDIFUL ity o f [facility] 2020-11-23 2020-11-23 Office [facility] 1.2.840.114 [id number] Univers 09:49:05 10:43:01 Visit Silverio [place] 350.1.13.10 i ty of [place] 4.2.7.2.686 [place] Profess[place] [phone] [address] 2020-11-23 2020-11-23 Outpatient R KIA [facility] [id number] Univers 10:00:00 10:00:00 SILVERIO ity of [facility] 2020-11-15 2020-11-15 [facility] 1.2.840.114 [id number] Univers 00:00:00 00:00:00 Qiangjun [place] 350.1.13.10 ity of [place] 4.2.7.2.686 [place] [phone] [address] 2020-11-15 2020-11-15 [facility] 1.2.840.114 [id number] Univers 00:00:00 00:00:00 Wondiful A [place] 350.1.13.10 ity of [place] 4.2.7.2.686 [place] Profess[place] [phone] [address] 2020-11-11 2020-11-11 [facility] 1.2.840.114 [id number] Univers 00:00:00 00:00:00 Wondiful A Health 350.1.13.10 ity of [place] 4.2.7.2.686 Bernabe as Professio [phone] [address] One 2020-10-05 2020-10-05 [facility] 1.2.840.114 [id number] Univers 00:00:00 00:00:00 Wondiful A Health 350.1.13.10 ity of [place] 4.2.7.2.686 Bernabe as Professio [phone] [address] 2020-10-04 2020-10-04 Orders Doctor YANA 1.2.840.114 [id number] Univers 00:00:00 00:00:00 Only Unassigned, CARLOS 350.1.13.10 ity of [place] [facility] 4.2.7.2.686 Bernabe as [phone] [address] 2020-09-24 2020-09-24 [facility] 1.2.840.114 [id number] Univers 00:00:00 00:00:00 Wondiful A Health 350.1.13.10 ity of [place] 4.2.7.2.686 Bernabe as Professio [phone] [facility] 044 [facility] 2020-09-09 2020-09-09 Cali Heath [facility] 1.2.840.114 [id number] Univers 00:00:00 00:00:00 Qiangjun [place] 350.1.13.10 ity of [place] 4.2.7.2.686 [place] Profess[place] [phone] [facility] 059 [facility] 2020-09-03 2020-09-03 [facility] 1.2.840.114 [id number] Univers 00:00:00 00:00:00 Wondiful A Health 350.1.13.10 ity of [place] 4.2.7.2.686 Bernabe as Professio [phone] [address] 2020-07-27 2020-07-27 Outpatient R KIA NJJENNI [facility] [id number] Univers 10:20:00 10:20:00 SILVERIO ity of [facility] 2020-07-27 2020-07-27 Office Kia NJJENNI 1.2.840.114 [id number] Univers 09:56:55 10:16:55 Visit [facility] 350.1.13.10 i ty of [place] 4.2.7.2.686 [place] [phone] [facility] 059 [facility] 2020-07-13 2020-07-13 Orders Doctor YANA 1.2.840.114 [id number] Univers 00:00:00 00:00:00 Only Unassigned, CARLOS 350.1.13.10 [facility] 4.2.7.2.686 Bernabe as [phone] [address] 2020-07-08 2020-07-08 Refisra Gonsalves [facility] 1.2.840.114 [id number] Univers 00:00:00 00:00:00 Wondiful A Health 350.1.13.10 ity of [place] 4.2.7.2.686 Bernabe as Professio [phone] [facility] [address] One 2020-06-29 2020-06-29 Outpatient R [facility] [id number] Univers 10:30:00 10:30:00 ity [facility] 2020-06-29 2020-06-29 Outpatient [facility] [id number] Univers 10:30:00 10:30:00 SILVERIO ity [facility] 2020-06-07 2020-06-07 Office [facility] 1.2.840.114 [id number] Univers 13:02:14 13:29:23 Visit Sriram [place] 350.1.13.10 ity of [place] 4.2.7.2.686 [place] [phone] [facility] 059 [facility] 2020-06-07 2020-06-07 Outpatient [facility] [id number] Univers 13:00:00 13:00:00 SRIRAM de oliveira o [facility] 2020-06-02 2020-06-02 Outpatient R DEE [facility] [id number] Univers 19:20:00 19:20:00 VIRI de oliveira o [facility] 2020-06-02 2020-06-02 Laboratory Lab, Adc Fam Pob I [facility] 1.2. 840.114 [id number] Univers 18:38:28 18:58:28 Only Jose [facility] 350.1.13.10 ity of [place] 4.2.7.2.686 [place] Professio [phone] [address] Office [facility] One 2020-06-02 2020-06-02 Letter Doctor YANA 1.2.840.114 [id number] Univers 00:00:00 00:00:00 (Out) Unassigned, CARLOS 350.1.13.10 ity of [place] [facility] 4.2.7.2.[phone] [address] 2020-06-02 2020-06-02 Letter Doctor YANA 1.2.840.114 [id number] Univers 00:00:00 00:00:00 (Out) Unassigned, CARLOS 350.1.13.10 ity of [place] [facility] 4.2.7.2.[address]abe [phone] 2020-06-02 2020-06-02 Letter Doctor YANA 1.2.840.114 [id number] Univers 00:00:00 00:00:00 (Out) Unassigned, CARLOS 350.1.13.10 ity of [place] [facility] 4.2.7.2.[phone] 2020-06-02 2020-06-02 Letter Doctor YANA 1.2.840.114 [id number] Univers 00:00:00 00:00:00 (Out) Unassigned, CARLOS 350.1.13.10 ity of [place] [facility] 4.2.7.2.686 Bernabe as [phone] [facility] [address] 2020-05-20 2020-05-20 Telephone YANA Samano 1.2.617.162 [id number] Univers 00:00:00 00:00:00 Teri RENEE 350.1.13.10 ity of HOSPITAL 4.2.7.2.686 Bernabe as [phone] [facility] [address] 2020-05-20 2020-05-20 Telephone YANA Samano 1.2.932.821 [id number] 00:00:00 00:00:00 Teri RENEE 350.1.13.10 [facility] 42.7.2.686 [id number] 082 2020-04-28 2020-04-28 [facility]ill [facility] 1.2.840.114 [id number] Univers 00:00:00 00:00:00 Silverio [place] 350.1.13.10 i ty of [place] 4.2.7.2.686 [place] [phone] Nv dicoh nal [address] [place] [address] 2020-04-27 2020-04-27 [facility] 1.2.840.114 [id number] Univers 11:25:29 11:45:29 Visit Silverio [place] 350.1.13.10 i ty of [place] [address].2.7.2.686 [place] Profess[place] [phone] [address] 2020-04-27 2020-04-27 Outpatient [facility] [id number] Univers 11:40:00 11:40:00 SILVERIO ity [facility] 2020-04-26 2020-04-26 Outpatient [facility] [id number] Univers 10:20:00 10:20:00 ERICH ity [facility] 2020-04-14 2020-04-14 [facility] 1.2.060.965 [id number] Univers 09:18:24 23:59:00 Encounter Wondiful Lauryn Palomo 350.1.13.10 ity [facility] 4.2.7.2.686 [place] [phone] [address] 2020-04-14 2020-04-14 Outpatient [facility] [id number] Univers 00:00:00 00:00:00 WONDIFUL ity o f [facility] 2020-03-31 2020-03-31 Adult Parole Officer [place], Adc Lab Main [facility] 1.2.8 40.114 [id number] Univers 09:18:24 09:33:24 Visit Major, Wondiful A [place] 350.1.13. 10 ity of [place] 4.2.7.2.686 [place] [phone] Nv dical nal [address] [facility] 2020-03-31 2020-03-31 Outpatient R [facility] [id number] Univers 09:15:00 09:15:00 WONDIFUL ity o f [facility] 2020-03-30 2020-03-30 Laboratory Pacemaker/Icd, [facility] 1.2. 840.114 [id number] Univers 12:51:02 13:15:05 Only Sewdom, Silverio De[place] 350.1.13.10 ity of [place] 4.2.7.2.686 [place] [phone] [facility] 059 [facility] 2020-03-30 2020-03-30 Outpatient R [facility] [id number] Univers 13:00:00 13:00:00 ity of [facility] 2020-03-29 2020-03-29 Office [facility] 1.2.840.114 [id number] Univers 15:15:24 16:12:41 [facility] 350.1.13.10 ity of [place] 4.2.7.2.686 Bernabe as Professio [phone] [facility] [address] Building One 2020-03-29 2020-03-29 Outpatient [facility] [id number] Univers 15:30:00 15:30:00 WONDIFUL ity o f [facility] 2020-03-03 2020-03-03 Orders Doctor YANA 1.2.840.114 [id number] Univers 00:00:00 00:00:00 Only Unassigned, CARLOS 350.1.13.10 ity of [place] [facility] 4.2.7.2.686 Bernabe as [phone] [address] 2020-02-03 2020-02-03 Outpatient R [facility] [id number] Univers 14:20:00 14:20:00 SRIRAM ity o f [facility] 2020-02-03 2020-02-03 Office [facility] 1.2.840.114 [id number] Univers 13:38:09 14:13:45 Visit Guillechaim [place] 350.1.13.10 ity of [place] 4.2.7.2.686 [place] [phone] Nv dicoh nal [address] [place] [address] 2020-01-27 2020-01-27 Office [facility] 1.2.840.114 [id number] Univers 10:58:57 11:32:49 Visit Silverio De[place] 350.1.13.10 i ty of [place] 4.2.7.2.686 [place] [phone] [address] 2020-01-27 2020-01-27 Outpatient R [facility] [id number] Univers 11:00:00 11:00:00 SILVERIO ity of [facility] 2020-01-20 2020-01-20 Orders Doctor YANA 1.2.840.114 [id number] Univers 00:00:00 00:00:00 Only Unassigned, CARLOS 350.1.13.10 ity of [place] [facility] 4.2.7.2.686 Bernabe as [phone] [address] 2020-01-20 2020-01-20 Telephone [facility] 1.2.488.228 [id number] Univers 00:00:00 00:00:00 Sriram [place] 350.1.13.10 ity of [place] 4.2.7.2.686 [place] [phone] Nv dic[address] 2020-01-20 2020-01-20 Refill [facility] 1.2.840.114 [id number] Univers 00:00:00 00:00:00 Qiachaim [place] 350.1.13.10 ity of [place] 4.2.7.2.686 [place] [phone] Nv dicoh nal [address] [place] [address] 2020-01-14 2020-01-14 Orders Doctor YANA 1.2.840.114 [id number] Univers 00:00:00 00:00:00 Only Unassigned, CARLOS 350.1.13.10 ity of [place] [facility] 4.2.7.2.686 Bernabe as [phone] [address] 2020-01-12 2020-01-12 Outpatient R KUMAR, [facility] [id number] Univers 10:00:00 10:00:00 DIMITRIZECHARIAH itkelsie o f [facility] 2020-01-05 2020-01-05 Adult Parole Officer 2, Adc Lab [facility] 1.2.840.114 [id number] Univers 15:31:18 15:46:18 Visit Omole, Min Palomo 350.1.1 3.10 ity of [place] 4.2.7.2.686 [place] [phone] Nv dical nal [address] [facility] 2020-01-05 2020-01-05 Office krystle, [facility] 1.2.840.114 [id number] Univers 14:39:45 15:28:14 Visit Min [place] 350.1.13.10 i ty of Gretchen [place] 4.2.7.2.686 [place] [phone] Nv dicoh nal 059 [facility] 2020-01-05 2020-01-05 Outpatient R FREDDY, [facility] [id number] Univers 14:45:00 14:45:00 MIN ity of [facility] 2020-01-05 2020-01-05 Orders Doctor MILLAN 1.2.840.114 [id number] Univers 00:00:00 00:00:00 Only Unassigned, CARLOS 350.1.13.10 ity of [place] [facility] 4.2.7.2.686 Bernabe as [phone] [address] 2020-01-01 2020-01-01 Telephone Kumar, [facility] 1.2.658.038 [id number] Univers 00:00:00 00:00:00 Dimitrizechariah Dewey 350.1.13.10 ity of [place] 4.2.7.2.686 [place] [phone] Nv dicoh nal 059 [facility] 2019-12-19 2019-12-19 Office [facility] 1.2.840.114 [id number] Univers 11:30:41 12:16:36 Visit Nita [place] 350.1.13.10 i ty of [place] 4.2.7.2.686 [place] [phone] Nv dical nal 085 [facility] 2019-12-19 2019-12-19 Outpatient R NITA DEGROOT [facility] 10 [id number] Univers 11:40:00 11:40:00 NITA DEGROOT i ty of [facility] 2019-12-19 2019-12-19 Telephone [facility] 1.2.741.060 [id number] Univers 00:00:00 00:00:00 Qialisazechariah [place] 350.1.13.10 ity of [place] 4.2.7.2.686 [place] [phone] Nv dicoh nal 059 [facility] 2019-12-18 2019-12-18 Orders Doctor YANA 1.2.840.114 [id number] Univers 00:00:00 00:00:00 Only Unassigned, CARLOS 350.1.13.10 ity of [place] [facility] 4.2.7.2.686 Bernabe as [phone] [address] 2019-12-16 2019-12-16 Office [facility] 1.2.840.114 [id number] Univers 08:53:47 09:13:47 Visit Silverio [place] 350.1.13.10 i ty of [place] 4.2.7.2.686 [place] [phone] [facility] nal 059 [facility] 2019-12-16 2019-12-16 Outpatient R KIA [facility] [id number] Univers 09:00:00 09:00:00 SILVERIO ity of [facility] 2019-12-15 2019-12-15 Telephone [facility] 1.2.840.114 [id number] Univers 00:00:00 00:00:00 Wondiful A Health 350.1.13.10 ity of [place] 4.2.7.2.686 Bernabe as Professio [phone] [facility] [address] Office [facility] One 2019-12-15 2019-12-15 Case [facility] 1.2.840.114 [id number] Univers 00:00:00 00:00:00 Management Wondiful A Health 350.1.13.10 ity of [place] 4.2.7.2.686 Bernabe as Professio [phone] [facility] [address] Office Building [facility] 2019-12-10 2019-12-10 Orders Doctor YANA 1.2.840.114 [id number] Univers 00:00:00 00:00:00 Only Unassigned, CARLOS 350.1.13.10 ity of [place] [facility] 4.2.7.2.686 Bernabe as [phone] [address] 2019-12-09 2019-12-09 Urgent Provider, [facility] Care [facility] 1.2.840.114 [id number] Univers 14:46:41 15:59:38 Care Yeni [facility]cc[facility] 350.1.13.10 ity of [place] 4.2.7.2.686 Bernabe as Professio [phone] [address] Office [facility] 2019-12-09 2019-12-09 Outpatient R LUKE [facility] [id number] Univers 15:00:00 15:00:00 MONICA ity of [facility] 2019-12-04 2019-12-04 Office [facility] 1.2.840.114 [id number] Univers 12:39:51 13:39:11 Visit Wonjoshua A Health 350.1.13.10 ity of [place] 4.2.7.2.686 Bernabe as Professio [phone] [address] Office [facility] 2019-12-04 2019-12-04 Outpatient [facility] [id number] Univers 13:00:00 13:00:00 WONDIFUL ity o f [facility] 2019-12-02 2019-12-02 Laboratory Pacemaker/Icd, [facility] 1.2. 840.114 [id number] Univers 10:50:24 11:27:03 Only Sriram [place] 350.1.13.10 ity of [place] 4[place].2.[place] [phone] [facility] 059 [facility] 2019-12-02 2019-12-02 Outpatient R [facility] [id number] Univers 11:00:00 11:00:00 ity of [facility] 2019-12-02 2019-12-02 Telephone [facility] 1.2.840.114 [id number] Univers 00:00:00 00:00:00 Wondiful A Health 350.1.13.10 ity of [place] 4.2.7.2.686 Bernabe as Professio [phone] Nv dical nal [address] Office [facility] One 2019-12-01 2019-12-01 Office [facility] 1.2.840.114 [id number] Univers 15:16:46 16:01:04 Visit Sriram [place] 350.1.13.10 ity of [place] 4.2.7.2.686 [place] [phone] Nv dical nal 059 [facility] 2019-12-01 2019-12-01 Outpatient R KUMAR [facility] [id number] Univers 15:40:00 15:40:00 GUILLELISAZECHARIAH martyy o f [facility] 2019-12-01 2019-12-01 Transition Jono Mccurdy 1.2.840.114 [id number] Univers 00:00:00 00:00:00 of Care Jo L Mg 350.1.13.10 i ty of [place]2.7.2.[place] [phone] [facility] [address] 2019-11-26 2019-11-28 Hospital Kirt Thomason [facility] 1.2.840.1 14 [id number] Univers 14:42:00 15:06:00 Encounter Gab Servin 350.1.13.10 ity of [place] 4.2.7.2.686 [place] [phone] [facility] [address] 2019-11-26 2019-11-28 Inpatient X GAB SERVIN [facility] SAMI [id number] Univers 14:42:00 15:06:00 ity of [facility] 2019-11-26 2019-11-26 Telephone [facility] 1.2.840.114 [id number] Univers 00:00:00 00:00:00 Wondiful A Health 350.1.13.10 ity of [place] 4.2.7.2.686 Bernabe as Professio [phone] Nv dical nal [address] Office Building One 2019-11-24 2019-11-24 Telemedici [facility] 1.2.840.114 [id number] Univers 12:42:21 16:15:48 ne Visit Wondiful A Health 350.1.13.10 ity of [place] 4.2.7.2.686 Bernabe as Professio [phone] [facility] nal [address] Office Building One 2019-11-24 2019-11-24 Outpatient [facility] [id number] Univers 15:30:00 15:30:00 WONDIFUL ity o f [facility] 2019-11-24 2019-11-24 Transition Jono Henry 1.2.840.114 [id number] Univers 00:00:00 00:00:00 of Care Cielo Mg 350.1.13.10 it y of [place] 4[place]2.7.2.[place] [phone] [facility] [address] 2019-11-24 2019-11-24 Orders Doctor YANA 1.2.840.114 [id number] Univers 00:00:00 00:00:00 Only Unassigned, CARLOS 350.1.13.10 ity of [place] [facility] 4.2.7.2.686 Bernabe as [phone] [facility] [address] 2019-11-21 2019-11-21 Transition Jono Henry 1.2.840.114 [id number] Univers 00:00:00 00:00:00 of Care Cielo Mg 350.1.13.10 it y of [place] 4[place].7.2.[place] [phone] [facility] [address] 2019-11-08 2019-11-20 [facility] Fam Craig 1.2.840.114 [id number] Univers 18:18:00 16:52:00 Encounter Argenis Barnett Carlos 350.1.13.1 0 ity of [facility] 4.2.7.2 .686 [place] [phone] [facility] [address] 2019-11-08 2019-11-20 [facility] [id number] Univers 18:18:00 16:52:00 AHMED ity of [facility] 2019-11-20 2019-11-20 [facility] 1.2.840.114 [id number] Univers 00:00:00 00:00:00 Wondiful A Health 350.1.13.10 ity of [place] 4.2.7.2.686 Bernabe as Professio [phone] [address] 2019-11-19 2019-11-19 Outpatient [facility] [id number] Univers 14:30:00 14:30:00 [facility] 2019-11-19 2019-11-19 [facility] 1.2.840.114 [id number] Univers 00:00:00 00:00:00 Wondiful A Health 350.1.13.10 ity of [place] 4.2.7.2.686 Bernabe as Professio [phone] [address] 2019-11-17 2019-11-17 Outpatient [facility] [id number] Univers 08:00:00 08:00:00 SILVERIO ity [facility] 2019-11-14 2019-11-14 Outpatient R [facility] [id number] Univers 09:00:00 09:00:00 ity of [facility] 2019-11-10 2019-11-10 [facility] 1.2.840.114 [id number] Univers 00:00:00 00:00:00 Wondiful A Health 350.1.13.10 ity of [place] 4.2.7.2.686 Bernabe as Professio [phone] [address] One 2019-11-08 2019-11-08 [facility] 1.2.840.114 [id number] Univers 00:00:00 00:00:00 [facility] [id number] ity of [place] [id number] Bernabe as Professio [phone] [address] Office Building One 2019-11-05 2019-11-05 Hospital Kia [facility] 1.2.840.114 [id number] Univers 07:42:01 23:59:00 Encounter [facility] [id number] [id number] [phone] [address] ([facility]) 2019-11-05 2019-11-05 Outpatient R KIA [facility] [id number] Univers 00:00:00 00:00:00 SILVERIO ity of [facility] 2019-10-29 2019-10-29 Pre Visit Major [facility] 1.2.840.114 [id number] Univers 00:00:00 00:00:00 Outreach [facility] [id number] ity of [place] [id number] Bernabe as Professio [phone] [address] Office Building [facility] 2019-10-29 2019-10-29 Pre Visit Major [facility] 1.2.840.114 [id number] Univers 00:00:00 00:00:00 Outreach [facility] [id number] ity of [place] [id number] Bernabe as Professio [phone] [address] Office Building [facility] 2019-10-28 2019-10-28 Office Major [facility] 1.2.840.114 [id number] Univers 08:55:08 09:43:57 Visit [facility] [id number] ity of [place] [id number] Bernabe as Professio [phone] [address] Office Building [facility] 2019-10-28 2019-10-28 Outpatient R MAJOR [facility] [id number] Univers 09:30:00 09:30:00 WONDIFUL ity o f [facility] 2019-10-24 2019-10-24 Emergency Lukasz [facility] [id number] Univers 19:34:00 23:51:00 [place] [id number] ity [id number] [phone] [facility] [address] 2019-10-24 2019-10-24 Emergency X LUKASZ, [facility] ERT [id number] Univers 19:34:00 23:51:00 LUBNA ity of [facility] 2019-10-24 2019-10-24 [facility] 1.2.840.114 [id number] Univers 00:00:00 00:00:00 [facility] [id number] ity of [place] [id number] Bernabe as Professio [phone] [address] Office Building [facility] 2019-10-24 2019-10-24 Orders Doctor YANA 1.2.840.114 [id number] Univers 00:00:00 00:00:00 Only Unassigned, CARLOS 350.1.13.10 ity of [place] [facility] 4.2.7.2.686 Bernabe as [phone] [facility] [address] 2019-10-21 2019-10-21 Telephone Mary Kay Adam 1.2.670.553 [id number] Univers 00:00:00 00:00:00 [place] 350.1.13.10 it y of Hospital 4.2.7.2.686 Bernabe as [phone] [facility] [address] 2019-10-09 2019-10-09 Telephone GLENNA Adam 1.2.840.114 [id number] Univers 00:00:00 00:00:00 Silverio Y HEALTH 350.1.13.10 i ty of CL[place]ICS [place] [phone] [facility] [address] 2019-10-08 2019-10-08 Telephone [facility] 1.2.840.114 [id number] Univers 00:00:00 00:00:00 Wondiful A Health 350.1.13.10 ity of [place] 4.2.7.2.686 Bernabe as Professio [phone] [address] Office [facility] 2019-10-08 2019-10-08 [facility] 1.2.709.797 [id number] Univers 00:00:00 00:00:00 Silverio [place] 350.1.13.10 i [place] [phone] [facility] 059 [facility] 2019-10-01 2019-10-01 Orders Doctor YANA 1.2.840.114 [id number] Univers 00:00:00 00:00:00 Only Unassigned, CARLOS 350.1.13.10 ity of [place] [facility] 4.2.7.2.686 Bernabe as [phone] [address] 2019-09-23 2019-09-23 Telephone [facility] 1.2.335.953 [id number] Univers 00:00:00 00:00:00 Silverio [place] 350.1.13.10 i ty of [place] [phone] [facility] 059 [facility] 2019-09-18 2019-09-18 Telephone [facility] 1.2.840.114 [id number] Univers 00:00:00 00:00:00 Wondiful A [place] 350.1.13.10 ity of [place] [phone] [facility] 044 [facility] 2019-09-17 2019-09-17 [facility] 1.2.239.913 [id number] Univers 00:00:00 00:00:00 Silverio [place] 350.1.13.10 i ty of [place].2.[place] [phone] [place] 026569 [facility] 2019-09-16 2019-09-16 Office [facility] 1.2.840.114 [id number] Univers 10:18:05 12:06:59 Visit Silverio [place] 350.1.13.10 i ty of [place].2.[place] [phone] [place] 026569 [facility] 2019-09-16 2019-09-16 Out[facility] [id number] Univers 10:40:00 10:40:00 SILVERIO ity of [facility] 2019-09-16 2019-09-16 Telephone [facility] 1.2.033.709 [id number] Univers 00:00:00 00:00:00 Dimitrizechariah [place] 350.1.13.10 ity of [place]2.7.2.[place] [phone] [place] 026569 [facility] 2019-09-15 2019-09-15 Laboratory Pc, Adc Echo Room 1 - [facility] 1 .2.840.114 [id number] Univers 09:42:44 11:10:38 Only Kumar Sriram Pal[place] 350.1.13.10 ity of [place] [phone] [address] 2019-09-15 2019-09-15 Outpatient R [facility] [id number] Univers 10:00:00 10:00:00 ity of [facility] 2019-09-10 2019-09-10 [facility]phone [facility] 1.2.840.114 [id number] Univers 00:00:00 00:00:00 Wondiful A De[place] 350.1.13.10 ity of [place].2.[place] [phone] [address] 2019-09-08 2019-09-08 Office [facility] 1.2.840.114 [id number] Univers 13:10:22 13:44:08 Visit Sriram [place] 350.1.13.10 ity of [place]2.7.2.[place] [phone] [address] 2019-09-08 2019-09-08 Outpatient [facility] [id number] Univers 13:20:00 13:20:00 SRIRAM fergusony o f [facility] 2019-08-25 2019-08-25 [facility] 1.2.840.114 [id number] Univers 00:00:00 00:00:00 Sriram Health 350.1.13.10 i ty of [place] 4.2.7.2.686 Bernabe as Professio [phone] [address] Office [facility] One 2019-08-18 2019-08-18 Telephone Kumar, [facility] 1.2.503.612 [id number] Univers 00:00:00 00:00:00 Sriram Pal[place] 350.1.13.10 ity of [place]2.7.2.[place] [phone] Nv dicoh nal 059 [facility] 2019-08-15 2019-08-15 Nurse Visit, [facility] Nurse [facility] 1.2.840.1 14 [id number] Univers 09:12:28 21:57:47 Visit Dago Gross 350.1.13. 10 ity of [place]2.7.2.[place] [phone] Nv dical nal 059 [facility] 2019-08-15 2019-08-15 Adult Parole Officer 2, [facility] Lab [facility] 1.2.840.114 [id number] Univers 10:09:35 10:24:35 Visit Dago Gross 350.1.13. 10 ity of [place]2.7.2.[place] [phone] Nv dical nal 353 [facility] 2019-08-15 2019-08-15 Outpatient R [facility] [id number] Univers 09:30:00 09:30:00 ity of [facility] 2019-08-13 2019-08-13 [facility] 1.2.840.114 [id number] Univers 16:05:34 16:57:20 Visit Alexey Palomo 350.1.13.10 i ty of [place] 4.2.7.2.[place] [phone] Nv dical nal 220 [facility] 2019-08-13 2019-08-13 Outpatient [facility] [id number] Univers 16:30:00 16:30:00 ALEXEY ity [facility] 2019-08-13 2019-08-13 Orders Doctor MILLAN 1.2.840.114 [id number] Univers 00:00:00 00:00:00 Only Unassigned, CARLOS 350.1.13.10 ity of [place] [facility] 4.2.7.2.686 Bernabe as [phone] [address] 2019-08-13 2019-08-13 [facility] 1.2.840.114 [id number] Univers 00:00:00 00:00:00 Sriram [place] 350.1.13.10 ity of [place]2.7.2.[place] [phone] [address] 2019-08-07 2019-08-07 [facility] 1.2.840.114 [id number] Univers 00:00:00 00:00:00 Wondiful A Health 350.1.13.10 ity of [place] 4.2.7.2.686 Bernabe as Professio [phone] [address] 2019-08-04 2019-08-04 Adult Parole Officer Pc, Adc Vascular Room 1 - [facility] 1.2.840.114 [id number] Univers 10:43:00 11:05:18 Visit Sriram Heath 350.1.13.10 ity of [place].2.[place] [phone] [address] 2019-08-04 2019-08-04 Outpatient R [facility] [id number] Univers 11:00:00 11:00:00 ity of [facility] 2019-08-04 2019-08-04 Telephone [facility] 1.2.782.460 [id number] Univers 00:00:00 00:00:00 Sriram [place]omo 350.1.13.10 ity of [place].2.[place] [phone] [address] 2019-08-03 2019-08-03 [facility] 1.2.840.114 [id number] Univers 00:00:00 00:00:00 Wondiful A Health 350.1.13.10 ity of [place] 4.2.7.2.686 Bernabe as Professio [phone] [address] 2019-07-30 2019-07-30 Office [facility] 1.2.840.114 [id number] Univers 13:54:46 14:40:55 Visit Guillelisazechariah [place] 350.1.13.10 ity of [place].2.7.2.[place] [phone] [place] [address]26569 [facility] 2019-07-30 2019-07-30 Outpatient [facility] [id number] Univers 14:20:00 14:20:00 SRIRAM ity o f [facility] 2019-07-30 2019-07-30 Orders Doctor YANA 1.2.840.114 [id number] Univers 00:00:00 00:00:00 Only Unassigned, CARLOS 350.1.13.10 ity of [place] [facility] 4.2.7.2.686 Bernabe as [phone] [address] 2019-07-17 2019-07-17 Orders Doctor YANA 1.2.840.114 [id number] Univers 00:00:00 00:00:00 Only Unassigned, CARLOS 350.1.13.10 ity of [place] [facility] 4.2.7.2.686 Bernabe as [phone] [address] 2019-07-16 2019-07-16 Telephone [facility] 1.2.840.114 [id number] Univers 00:00:00 00:00:00 Wondiful A Health 350.1.13.10 ity of [place] 4.2.7.2.686 Bernabe as Professio [phone] [facility] 044 [facility] One 2019-07-01 2019-07-01 Telephone [facility] 1.2.667.646 [id number] Univers 00:00:00 00:00:00 Guillelisazechariah [place] 350.1.13.10 ity of [place] 4.2.7.2.[place] [phone] [facility] 059 [facility] 2019-06-30 2019-06-30 Adult Parole Officer [place], Adc Lab Main [facility] 1.2.8 40.114 [id number] Univers 07:52:57 08:07:57 Visit Kumar Sriram [place] 350.1.13.10 ity of [place].2.[place] [phone] [facility] 353 [facility] 2019-06-30 2019-06-30 Outpatient R KUMAR, [facility] [id number] Univers 08:00:00 08:00:00 SRIRAM de oliveira o f [facility] 2019-06-25 2019-06-25 Outpatient R KUMAR, [facility] [id number] Univers 09:40:00 09:40:00 SRIRAM fergusony o [facility] 2019-06-25 2019-06-25 Telemedici [facility] 1.2.840.114 [id number] Univers 08:37:50 08:57:50 ne Visit Sriram [place] 350.1.13.10 ity of [place] 4.2.7.2.[place] [phone] [facility] 059 [facility] 2019-05-28 2019-05-28 [facility] 1..840.114 [id number] Univers 00:00:00 00:00:00 Wondiful A Health 350.1.13.10 ity of [place] 4.2.7.2.686 Bernabe as Professio [phone] [facility] 044 [facility] 2019-05-25 2019-05-25 [facility] 1..840.114 [id number] Univers 00:00:00 00:00:00 Wondiful A Health 350.1.13.10 ity of [place] 4.2.7.2.686 Bernabe as Professio [phone] [address] 2019-05-21 2019-05-21 Outpatient R ALEXUS RAMOS [facility] [id number] Univers 10:00:00 10:00:00 ALEXUS RAMOS ity [facility] 2019-05-20 2019-05-20 Telemgisell [facility] 1..840.114 [id number] Univers 13:50:59 14:10:59 ne Visit [facility] [place] 350.1.13.10 ity of [place].2.7.2.[place] [phone] Nv dical nal 059 [facility] 2019-05-20 2019-05-20 Outpatient R KUMAR, [facility] [id number] Univers 13:40:00 13:40:00 QIALISAZECHARIAH ity o f [facility] 2019-05-20 2019-05-20 Telephone [facility] 1.2.840.114 [id number] Univers 00:00:00 00:00:00 Wondiful A Health 350.1.13.10 ity of [place] 4.2.7.2.686 Bernabe as Professio [phone] Nv dical nal [address] Office [facility] 2019-05-13 2019-05-13 Telephone [facility] 1.2.658.767 [id number] Univers 00:00:00 00:00:00 Qiangzechariah [place] 350.1.13.10 ity of [place] 4.2.7.2.[place] [phone] Nv dical nal 059 [facility] 2019-05-09 2019-05-09 Refill [facility] 1.2.840.114 [id number] Univers 00:00:00 00:00:00 Wondiful A Health 350.1.13.10 ity of [place] 4.2.7.2.686 Bernabe as Professio [phone] Nv dical nal [address] Office [facility] 2019-05-02 2019-05-02 Telephone [facility] 1.2.840.114 [id number] Univers 00:00:00 00:00:00 Wondiful A Health 350.1.13.10 ity of [place] 4.2.7.2.686 Bernabe as Professio [phone] Nv dical nal [address] Office [facility] 2019-05-02 2019-05-02 Telephone [facility] 1.2.569.489 [id number] Univers 00:00:00 00:00:00 Wentong [place] 350.1.13.10 i ty of [place] 4.2.7.2.[place] [phone] Nv dical nal 220 [facility] 2019-04-30 2019-04-30 Adult Parole Officer [place], Adc Lab Main [facility] 1.2.8 40.114 [id number] Univers 09:32:20 09:47:20 Visit Sriram Heath 350.1.13.10 ity of [place] 4.2.7.2.[place] [phone] Nv dical nal 353 [facility] 2019-04-30 2019-04-30 Out[facility] [id number] Univers 09:45:00 09:45:00 SRIRAM fergusony o f [facility] 2019-04-30 2019-04-30 Telephone [facility] 1.2.840.114 [id number] Univers 00:00:00 00:00:00 WonJibo A Vidtel 350.1.13.10 ity of [place] 4.2.7.2.686 Bernabe as Professio [phone] Nv dical nal 044 [facility] One 2019-04-28 2019-04-28 Office [facility] 1.2.840.114 [id number] Univers 13:21:45 14:34:07 Visit Sriram Palomo 350.1.13.10 ity of [place] 4.2.7.2.[place] [phone] Nv dical nal 059 [facility] 2019-04-28 2019-04-28 Outpatient R KUMAR [facility] [id number] Univers 13:20:00 13:20:00 SRIRAM ity o f [facility] 2019-04-09 2019-04-09 Adult Parole Officer Luís Coleman Lab Main [facility] 1.2.8 40.114 [id number] Univers 16:15:01 16:30:01 Visit Alexey [place] 350.1.13.10 it[place] of [place] 4[place]2.7.2.[place] [phone] Nv dical sathya 353 [facility] 2019-04-09 2019-04-09 Office [facility] 1.2.840.114 [id number] Univers 15:08:31 15:58:05 Visit Alexey De[place] 350.1.13.10 i ty of [place] 4.2.7.2.[place] [phone] Nv dical nal 220 [facility] 2019-04-09 2019-04-09 Orders Doctor YANA 1.2.840.114 [id number] Univers 00:00:00 00:00:00 Only Unassigned, CARLOS 350.1.13.10 ity of [place] [facility] 4.2.7.2.686 Bernabe as [phone] [address] 2019-03-14 2019-03-30 Nurse Visit, [facility] Nurse [facility] 1.2.840.1 14 [id number] Univers 08:39:08 18:06:53 Visit Dago Gross 350.1.13. 10 ity of [place] 4.2.7.2.[place] [phone] [facility]59 [facility] 2019-03-28 2019-03-28 Telephone Major [facility] 1.2.840.114 [id number] Univers 00:00:00 00:00:00 Wondiful A Health 350.1.13.10 ity of [place] 4.2.7.2.686 Bernabe as Professio [phone] [facility] 044 [facility] 2019-03-24 2019-03-24 Telephone Major [facility] 1.2.840.114 [id number] Univers 00:00:00 00:00:00 Wondiful A Health 350.1.13.10 ity of [place] 4.2.7.2.686 Bernabe as Professio [phone] [facility] 044 [facility] 2019-03-14 2019-03-14 Outpatient R GINNY [facility] [id number] Univers 09:15:00 09:37:46 SENDIL ity of [facility] 2019-03-14 2019-03-14 Orders Doctor YANA 1.2.840.114 [id number] Univers 00:00:00 00:00:00 Only Unassigned, CARLOS 350.1.13.10 ity of [place] [facility] 4.2.7.2.686 Bernabe as [phone] [address] 2019-03-06 2019-03-06 Telephone [facility] 1.2.840.114 [id number] Univers 00:00:00 00:00:00 Wondiful A Health 350.1.13.10 ity of [place] 4.2.7.2.686 Bernabe as Professio [phone] [place] [address] [address] Building One 2019-01-27 2019-01-27 Outpatient R KUMAR, [facility] [id number] Univers 14:20:00 14:44:45 SRIRAM fergusony o f [facility] 2019-01-19 2019-01-19 Emergency X MARIO, [facility] ERT [id number] Univers 10:06:29 15:10:00 EVAN de oliveira [facility] 2019-01-06 2019-01-06 Outpatient [facility] [id number] Univers 15:00:00 15:00:00 CLARE de oliveira o f [facility] 2018-12-11 2018-12-11 Outpatient [facility] [id number] Univers 08:45:00 08:45:00 EKATERINA de oliveira [facility] 2018-11-01 2018-11-01 Telephone [facility] 1.2.840.114 [id number] Univers 00:00:00 00:00:00 Wissam HEALTH 350.1.13.10 it y of [facility] 4.2.7.2.686 [facility] [phone] [facility] Primary & 059 [facility] 2018-10-31 2018-10-31 Telephone [facility] 1.2.840.114 [id number] Univers 00:00:00 00:00:00 Wondiful A Health 350.1.13.10 ity of [place] 4.2.7.2.686 Bernabe as Professio [phone] [place] [address] [address] Office Building One 2018-10-30 2018-10-30 Telephone [facility] 1.2.677.685 [id number] Univers 00:00:00 00:00:00 Madeleine Rica HEALTH 350.1.13.10 ity of [place] 4.2.7.2.686 [facility] s [facility] [phone] [facility] Primary & 059 [facility] 2018-10-30 2018-10-30 Telephone [facility] 1.2.840.114 [id number] Univers 00:00:00 00:00:00 Wondiful A Health 350.1.13.10 ity of [place] 4.2.7.2.686 Bernabe as Professio [phone] Nv dical nal [address] [place] [address] Building One 2018-10-29 2018-10-29 Office Cookie [facility] 1.2.840.114 [id number] Univers 13:11:56 13:52:23 Visit Emily Health 350.1.13.10 i ty of [place] 4.2.7.2.686 Bernabe as Professio [phone] Nv dical nal [address] Office Building One 2018-10-28 2018-10-29 Office Fac, Adc Heart Failure Cardio [facility] 1.2.840.114 [id number] Univers 15:47:43 12:03:16 Visit Edgar Cortés [place] 350.1 .13.10 ity of [place] 4.2.7.2.686 [facility] Professio [phone] Nv dical nal 059 [facility] 2018-10-28 2018-10-28 Hospital Nate [facility] 1.2.840.114 [id number] Univers 16:46:06 23:59:00 Encounter Madeleine Palomo 350.1.13.10 ity of [place] 4.2.7.2.686 [facility] [place] [phone] [facility] [address] 2018-10-28 2018-10-28 Adult Parole Officer 1, Adc Lab [facility] 1.2.840.114 [id number] Univers 16:41:14 16:56:14 Visit Madeleine [place] 350.1.13.10 ity of [place]2.7.2.[place] [phone] [facility] [address] 2018-10-28 2018-10-28 Orders Doctor YANA 1.2.840.114 [id number] Univers 00:00:00 00:00:00 Only Unassigned, CARLOS 350.1.13.10 ity of [place] [facility] 4.2.7.2.686 Bernabe as [phone] [facility] [address] 2018-10-24 2018-10-24 Cali Dorsey [facility] 1.2.840.114 [id number] Univers 00:00:00 00:00:00 Wissam HEALTH 350.1.13.10 it y of [place].2.7.2.[place] [phone] [facility] Primary & [facility] Care 2018-10-14 2018-10-14 Refill Freddy, [facility] 1.2.840.114 [id number] Univers 00:00:00 00:00:00 Min [place] 350.1.13.10 i ty of [place] 4.2.7.2.[place] [phone] [address] Building 2018-10-01 2018-10-01 Orders Doctor YANA 1.2.840.114 [id number] Univers 00:00:00 00:00:00 Only Unassigned, CARLOS 350.1.13.10 ity of [place] [facility] 4.2.7.2.686 Bernabe as [phone] [facility] [address]9 [address] 2018-09-26 2018-09-26 Adult Parole Officer Lab, [facility] Fam Pob I [facility] 1.2. 840.114 [id number] Univers 13:45:07 15:25:16 Visit Major [facility] 350.1.13.1 0 ity of [place] 4.2.7.2.686 Bernabe as Professio [phone] [address] Office Building One 2018-09-26 2018-09-26 Telephone Fac, [facility] 1.2.840.114 [id number] Univers 00:00:00 00:00:00 Heart HEALTH 350.1.13.10 it y of [place] 4.2.7.2.[place] [phone] [facility] Primary & [facility] Branch Specialty Care 2018-09-10 2018-09-10 Office Major [facility] 1.2.840.114 [id number] Univers 12:36:16 13:37:40 Visit Josianeful A Health 350.1.13.10 ity of [place] 4.2.7.2.686 Bernabe as Professio [phone] [address] Office Building One 2018-09-02 2018-09-02 Orders Doctor YANA 1.2.840.114 [id number] Univers 00:00:00 00:00:00 Only Unassigned, CARLOS 350.1.13.10 ity of [place] [facility] 4.2.7.2.686 Bernabe as [phone] [address] Results Test Description Test Time Test Comments Results Result Comments Source POCT GLUCOSE (AUTOMATED) 2022-02-19 18:34:13 Test Item Value Reference Range Interpretation Comme nts POCT GLU (test code = 7966489761) 354 mg/dL 70-110 H Lab Interpretation (test code = 55237-5) Abnormal [facility]2022-02-19 14:51:34 Test Item Value Reference Range Interpretation Comments POCT GLU (test code = 6776487836) 158 mg/dL 70-110 H Lab Interpretation (test code = Abnormal 23172-7) [facility]2022-02-19 07:09:11 Test Item Value Reference Range Interpretation Comments POCT GLU (test code = 7729787961) 109 mg/dL 70-110 Lab Interpretation (test code = Normal 34289-8) [facility]2022-02-19 06:15:00 Test Item Value Reference Range Interpretation Comments POCT GLU (test code = 7709836817) 56 mg/dL 70-110 L Lab Interpretation (test code = Abnormal 45211-9) [facility]2022-02-19 03:41:03 Test Item Value Reference Range Interpretation Comments POCT GLU (test code = 3322929043) 197 mg/dL 70-110 H Lab Interpretation (test code = Abnormal 70455-0) [facility]2022-02-18 23:17:16 Test Item Value Reference Range Interpretation Comments POCT GLU (test code = 0249939431) 240 mg/dL 70-110 H Lab Interpretation (test code = Abnormal 88735-9) [facility] 18:24:23 Test Item Value Reference Range Interpretation Comments POCT GLU (test code = 2167012558) 274 mg/dL 70-110 H Lab Interpretation (test code = Abnormal 38799-4) [facility]2022-02-18 18:24:18 Test Item Value Reference Range Interpretation Comments POCT GLU (test code = 4975721676) 92 mg/dL 70-110 Lab Interpretation (test code = Normal 33290-0) [facility] (Total Cholesterol, Triglycerides, HDL) - [id number] 12:27:34 Test Item Value Reference Range Interpretation Comments CHOL (test code = 146 mg/dL 120-200 5172743688) HDL (test code = 54 mg/dL See_Comment [Automated message] 1386703558) The system [employer] generated this result transmit luis miguel reference range : >=50. The refer ence range was not u sed to interpret th is result as normal/abnormal . HDLC RATIO (test code = See_Comment [Au tomated message] 7177739256) The system [employer] generated this result transmit luis miguel reference range : <=4.5. The refe rence range was not u sed to interpret th is result as normal/abnormal . TRIG (test code = 113 mg/dL 30-170 1399472119) LDL CHOL (test code = 69 mg/dL See_Comment [Auto mated message] 41795-0) The system [employer] generated this result transmit luis miguel reference range : <=160. The refe rence range was not u sed to interpret th is result as normal/abnormal . VLDL (test code = 23 mg/dL 5-60 9338959614) Lab Interpretation (test Normal code = 14394-4) [facility] [id number]-[id number] 12:27:34 Test Item Value Reference Range Interpretation Comments NT-proBNP (test code 35890 pg/mL See_Comment H [Autom ated = [id number]) message] The system which generated this result transmitted reference range : <=450. The reference range was not used to interpret this result as normal/abnormal . SEN (test code = SEN) Biotin has been reported to cause a negative bias, interpret results relative to patient's use of biotin. Lab Interpretation Abnormal (test code = 76668-7) [facility] (NA, K, CL, CO2, GLUCOSE, BUN, CREATININE, CA)2022-02-18 12:27:14 Test Item Value Reference Range Interpretation Comments NA (test code = 137 mmol/L 135-145 [id number]) K (test code = 4.0 mmol/L 3.5-5.0 [id number]) CL (test code = 104 mmol/L 98-108 [id number]) CO2 TOTAL (test code = 25 mmol/L 23-31 0498035182) AGAP (test code = 2-16 8746391537) BUN (test code = 62 mg/dL 7-23 H [id number]) GLUCOSE (test code = 90 mg/dL 70-110 6819901112) CREATININE (test code = 2.02 mg/dL 0.50-1.04 H [id number]) CALCIUM (test code = 8.3 mg/dL 8.6-10.6 L [id number]) eGFR (test code = mL/min/1.73m2 [id number]) SEN (test code = SEN) Association of [...] tests). Lab Interpretation Abnormal (test code = 77216-5) [facility] WITH [id number] 11:30:43 Test Item Value Reference Range Interpretation [...] RDW-SD (test code = 46.4 fL 39.0-49.9 53858-6) RDW-CV (test code = 13.2 % 12.0-15.5 788-0) PLT (test code = See_Comment [Automated 777-3) message] The sy stem which generated this result transmitted reference range : 166 - 358 10*3/ ?L. The reference r beltran was not used to interpret this result as normal/abnormal . MPV (test code = 13.0 fL 9.5-12.9 H 58850-3) NRBC/100 WBC (test See_Comment [Automat ed code = 8997960668) message] The system which generated this result transmitted reference range : 0.0 - 10.0 /100 WBCs. The refer ence range was not u sed to interpret th is result as normal/abnormal . NRBC x10^3 (test code See_Comment [Auto mated = 5305139694) message] The s ystem which generated this result transmitted reference range : 10*3/?L. The reference range was not used to interpret this result as normal/abnormal . GRAN MAT (NEUT) % 58.4 % (test code = 770-8) IMM GRAN % (test code 0.30 % = 2410557824) LYMPH % (test code = 27.5 % 736-9) MONO % (test code = 9.3 % 5905-5) EOS % (test code = 4.2 % 713-8) BASO % (test code = 0.3 % 706-2) GRAN MAT x10^3(ANC) 3.71 10*3/uL 1.88-7.09 (test code = 6995221138) IMM GRAN x10^3 (test 0.00-0.06 code = 9964944836) LYMPH x10^3 (test code 1.75 10*3/uL 1.32-3.29 = 731-0) MONO x10^3 (test code 0.59 10*3/uL 0.33-0.92 = 742-7) EOS x10^3 (test code = 0.27 10*3/uL 0.03-0.39 711-2) BASO x10^3 (test code 0.01-0.07 = 704-7) Lab Interpretation Abnormal (test code = 10125-3) [facility] GLUCOSE (AUTOMATED)2022-02-18 02:39:08 Test Item Value Reference Range Interpretation Comments POCT GLU (test code = 3489118689) 196 mg/dL 70-110 H Lab Interpretation (test code = Abnormal 50101-0) [facility] GLUCOSE (AUTOMATED)2022-02-17 23:16:54 Test Item Value Reference Range Interpretation Comments POCT GLU (test code = 2190853080) 140 mg/dL 70-110 H Lab Interpretation (test code = Abnormal 79001-0) [facility] 19:44:53 Test Item Value Reference Range Interpretation Comments Height (test code = in 3098685427) Weight (test code = lbs 2752526752) Systolic BP (test code = mmHg 4211889497) Diastolic BP (test code mmHg = 2254634988) Heart Rate (test code = bpm 9044950176) BSA (test code = 1.81 m2 8275510540) Ao root diam (test code 3.30 cm = 7227057985) Aortic root (test code = 3.3 cm 1794619545) Ao root annulus (test 3.3 cm code = 3716032279) LVOT diameter (test code 1.89 cm = 0681602449) LVOT area (test code = 2.80 cm2 8944148298) LAV(MOD-sp4) (test code 52.90 mL = 0732414998) E wave decelartion time 0.17 s (test code = 1335044256) MV stenosis pressure 1/2 51.3 ms time (test code = 3734489636) MV Peak E Mily (test code 95.2 cm/s = 1668822662) MV Peak A Mily (test code 61.8 cm/s = 6427725763) E/A ratio (test code = ratio 7456493521) MV Prop V (test code = 23.30 cm/s 1109043734) MV E/e' septal (test 7.8 cm/s code = 1582709575) TR Peak Mily (test code = 310.8 cm/s 7780441622) Triscuspid Valve mmHg Regurgitation Peak Gradient (test code = 6887919866) Tapse (test code = 1.99 cm 7347733431) LVOT stroke volume (test 40.40 cm3 code = 9326648366) LVOT peak mily (test code 67.8 cm/s = 5548688358) LVOT mn grad (test code mmHg = 5069452399) AV LVOT peak gradient mmHg (test code = 7495116406) LVOT peak VTI (test code 14.4 cm = 5027621893) LV V1 mean (test code = 45.30 cm/s 9618857496) MR max PG (test code = 65.40 mm[Hg] 2642141269) MR max mily (test code = 404.30 cm/s 5409817864) Mr max mily (test code = 404.3 m/s 7981331438) LVIDD (test code = 6.30 cm 5120118977) Left Ventricular End 202.4 mL Diastolic Volume by Teichholz Method (test code = 9977852) IVS (test code = 0.94 cm 7168629091) Interventricular Septum 0.94 cm Diastolic Thickness by 2D (test code = 7216807) LVPWD (test code = 0.94 cm 8678518402) PW (test code = 0.94 cm 0.6-1.5 0581379470) EF(Teich) (test code = 19.10 % 9292444642) LVIDS (test code = 5.80 cm 6915209455) Left Ventricular End 163.8 mL Systolic Volume by Teichholz Method (test code = 5282165) FS (test code = 9 % 6503172626) EF - 2D (test code = 19.10 % 02467423) LA size (test code = 3.5 cm 6021045431) Radiology Study observation (narrative) (test code = 55857-3) SEN (test code = SEN) Table formatting [...] mL of Lumason ultrasound enhancing agent used. [facility] GLUCOSE (AUTOMATED)2022-02-17 18:19:03 Test Item Value Reference Range Interpretation Comments POCT GLU (test code = 0518375909) 160 mg/dL 70-110 H Lab Interpretation (test code = Abnormal 22367-5) [facility] GLUCOSE (AUTOMATED)2022-02-17 14:06:55 Test Item Value Reference Range Interpretation Comments POCT GLU (test code = 3889404574) 101 mg/dL 70-110 Lab Interpretation (test code = Normal 26242-2) [facility] GLUCOSE (AUTOMATED)2022-02-17 03:58:48 Test Item Value Reference Range Interpretation Comments POCT GLU (test code = 9716411718) 278 mg/dL 70-110 H Lab Interpretation (test code = Abnormal 18616-2) [facility] GLUCOSE (AUTOMATED)2022-02-17 03:21:46 Test Item Value Reference Range Interpretation Comments POCT GLU (test code = 3630755053) 279 mg/dL 70-110 H Lab Interpretation (test code = Abnormal 84131-0) [facility]A1C)2022-02-17 01:58:04 Test Item Value Reference Range Interpretation Comments HGB A1C (test code = 10.0 % 4.0-5.7 H 4548-4) SEN (test code = SEN) Reference RangesNormal: <5.7%Prediabetes: 5.7 - 6.4%Diabetes: > 6.5% Lab Interpretation (test Abnormal code = 45408-2) [facility] [id number] 17:30:57 Test Item Value Reference Interpretation Comments Range TROPONIN I (test 0.028 ng/mL See_Comment [Automated code = 4851379237) message] The system which generated this result [...] biotin. Lab Interpretation Normal (test code = 04390-9) [facility] [id number] 17:27:54 Test Item Value Reference Range Interpretation Comments NT-proBNP (test code 51256 pg/mL See_Comment H [Autom ated = 3758648347) message] The system which generated this result transmitted reference range : <=450. The reference range was not used to interpret this result as normal/abnormal . SEN (test code = SEN) Biotin has been reported to cause a negative bias, interpret results relative to patient's use of biotin. Lab Interpretation Abnormal (test code = 46554-6) [facility] (NA, K, CL, CO2, GLUCOSE, BUN, CREATININE, CA)2022-02-16 17:19:15 Test Item Value Reference Range Interpretation Comments NA (test code = 135 mmol/L 135-145 1479931638) K (test code = 4.7 mmol/L 3.5-5.0 1719416449) CL (test code = 104 mmol/L 98-108 8083411667) CO2 TOTAL (test code = 23 mmol/L 23-31 3129026243) AGAP (test code = 2-16 5014100433) BUN (test code = 58 mg/dL 7-23 H 2186143162) GLUCOSE (test code = 260 mg/dL 70-110 H 2057537798) CREATININE (test code = 1.78 mg/dL 0.50-1.04 H 4664424941) CALCIUM (test code = 8.2 mg/dL 8.6-10.6 L 9132556275) eGFR (test code = mL/min/1.73m2 1211847165) SEN (test code = SEN) Association of [...] tests). Lab Interpretation Abnormal (test code = 46688-6) [facility] (11231) (ALB,T.PRO,BILI T,BU/BC,ALT,AST,ALK PHOS)2022-02-16 17:19:15 Test Item Value Reference Range Interpretation Comments TOTAL BILI (test code = 9537326794) 0.4 mg/dL 0.1-1.1 BILI UNCON (test code = 4078515036) 0.3 mg/dL 0.1-1.1 BILI CONJ (test code = 3511359940) 0.0 mg/dL 0.0-0.3 T PROTEIN (test code = 4160495398) 6.8 g/dL 6.3-8.2 ALBUMIN (test code = 1508911620) 3.8 g/dL 3.5-5.0 ALK PHOS (test code = 3327164941) 146 U/L 34-122 H ALTv (test code = 1742-6) 29 U/L 5-35 AST(SGOT) (test code = 0933120389) 28 U/L 13-40 Lab Interpretation (test code = Abnormal 82007-1) [facility]2022-12-29 17:19:15 Test Item Value Reference Range Interpretation Comments LIPASE (test code = 8781242424) 46 U/L 0-220 Lab Interpretation (test code = Normal 23023-4) [facility] WITH [id number] 17:12:53 Test Item Value Reference Range Interpretation Comments WBC (test code = See_Comment [Automated 6690-2) message] The sy stem which generated this result transmitted reference range : 4.30 - 11.10 10*3/?L. The reference range was not used to interpret this result as normal/abnormal . RBC (test code = See_Comment L [Automated 079-8) message] The sy stem which generated this [...] RDW-SD (test code = 47.8 fL 39.0-49.9 80819-6) RDW-CV (test code = 13.5 % 12.0-15.5 788-0) PLT (test code = See_Comment [Automated 777-3) message] The sy stem which generated this result transmitted reference range : 166 - 358 10*3/ ?L. The reference r beltran was not used to interpret this result as normal/abnormal . MPV (test code = 12.9 fL 9.5-12.9 50200-9) NRBC/100 WBC (test See_Comment [Automat ed code = 5096759144) message] The system which generated this result transmitted reference range : 0.0 - 10.0 /100 WBCs. The refer ence range was not u sed to interpret th is result as normal/abnormal . NRBC x10^3 (test code See_Comment [Auto mated = 4151669770) message] The s ystem which generated this result transmitted reference range : 10*3/?L. The reference range was not used to interpret this result as normal/abnormal . GRAN MAT (NEUT) % 75.4 % (test code = 770-8) IMM GRAN % (test code 0.20 % = 5561393866) LYMPH % (test code = 14.9 % 736-9) MONO % (test code = 7.7 % 5905-5) EOS % (test code = 1.6 % 713-8) BASO % (test code = 0.2 % 706-2) GRAN MAT x10^3(ANC) 6.77 10*3/uL 1.88-7.09 (test code = 0516730991) IMM GRAN x10^3 (test 0.00-0.06 code = 8203879550) LYMPH x10^3 (test code 1.34 10*3/uL 1.32-3.29 = 731-0) MONO x10^3 (test code 0.69 10*3/uL 0.33-0.92 = 742-7) EOS x10^3 (test code = 0.14 10*3/uL 0.03-0.39 711-2) BASO x10^3 (test code 0.01-0.07 = 704-7) Lab Interpretation Abnormal (test code = 66929-5) [facility] HEMOGLOBIN A1C [id number] 15:15:00 Test Item Value Reference Range Interpretation Comments POCT HBA1C (test code = 4548-4) 7.6 % 4-6 A Lab Interpretation (test code = Abnormal 71332-7) [facility] HEMOGLOBIN A1C [id number] 15:15:00 Test Item Value Reference Range Interpretation Comments POCT HBA1C (test code = 4548-4) 7.6 % 4-6 A Lab Interpretation (test code = Abnormal 36018-2) [facility]
[2022-08-11 23:29] LABS: Absolute Lymphocytes (CBC) 1.4 K/uL (0.7-4.9); Hematocrit 28.9 % (36.0-45.0); Lymphocytes % 16.8 % (15.3-44.8); MCV 95.1 fL (80-100); MPV 10.8 fL (7.6-11.3); RBC Red Blood Cell Count 3.03 M/uL (3.86-4.86)
[2022-08-11] MEDS ORDERED: FUROSEMIDE 20 MG/ 2ML VIAL ONE (23:52)
[2022-08-11] MEDS ORDERED: FENTANYL CITR 100 MCG/2 ML ONE (23:52)
[2022-08-12 00:02] LABS: Albumin 3.1 g/dL (3.4-5.0); Bilirubin Total 0.2 mg/dL (0.2-1.0); Potassium 3.9 mEq/L (3.5-5.1); Protein, Total 7.3 g/dL (6.4-8.2); Troponin High Sensitivity 20.5 pg/mL (<58.9)
[2022-08-12 00:23] LABS: Protime INR 1.07
--- NOTE | 2022-08-12 01:36 | EDPHYS ---
Physician Documentation [facility] Name: Teena Simpson Age: 77 yrs Sex: Female : 1945 Arrival Date: 08/11/2022 Time: 22:19 Bed 18 Private MD: ED Physician Jacky Casper HPI: 08/11 22:35 This 77 yrs old Female presents to ER via Wheelchair with complaints of sp4 Breathing Difficulty, Chest Pain, Nausea. 08/12 01:16 Patient with extensive past medical history presents with acute onset of chest pain and sp4 shortness of breath starting last evening. Patient reported bilateral lower extremity edema. Patient's last admission for the same on 08/02/2022. She was admitted for NSTEMI, atrial fibrillation chronic kidney disease, diabetes, chronic systolic heart failure, ventricular arrhythmia. Patient has history of insulin-dependent diabetes type 2 chronic kidney disease stage IV, chronic systolic diastolic heart failure, atrial fibrillation status post PPM and an ICD on [facility], hypertension. During last admission patient was managed on the medical floor. Her AICD was interrogated. Multiple VT episodes were found. Dr. Cash has assessed patient and recommended outpatient stress test patient had normal heart cath in July 2019. As reported on cardiology consult. She was found to have demand ischemia, patient's medications include atorvastatin, insulin, phenytoin, metoprolol, valsartan Entresto, apixaban, furosemide, amiodarone.. Historical: - Allergies: 08/11 22:30 Augmentin; kl 22:30 Cipro; kl 22:30 Keppra; kl - Home Meds: 22:30 atorvastatin 40 mg Oral tab 1 tab every day at bedtime [Active]; Eliquis 5 mg Oral kl tablet 1 tab 2 times per day [Active]; furosemide 40 mg Oral tab 1 tab daily [Active]; metoprolol succinate 50 mg Oral Tablet, Extended Release 24 hr 1 tab 2 times per day [Active]; Novolin N NPH U-100 Insulin 100 unit/mL Sub-Q tab 20 units every evening [Active]; Phenytoin 100mg Oral 1 tab 2 times per day [Active]; - PMHx: 22:30 Anxiety; Atrial Fib; CHF; Diabetes - IDDM; High Cholesterol; Hypertension; Kidney kl failure stage 4; Low HR; Myocardial infarction; neuropathy; Seizures; - PSHx: 22:30 Appendectomy; Hemorrhoidectomy; Pacemaker-Defib; kl - Immunization history:: Adult Immunizations up to date. - Social history:: Smoking status: Patient denies any tobacco usage or history of. - Family history:: not pertinent. ROS: 08/12 01:16 Constitutional: Negative for fever, chills, and weight loss, Eyes: Negative for injury, sp4 pain, redness, and discharge, ENT: Negative for injury, pain, and discharge, Neck: Negative for injury, pain, and swelling, Cardiovascular: Positive for midsternal chest pain, bilateral lower extremity edema, positive for shortness of breath, negative palpitations Respiratory: Negative for cough, wheezing, and pleuritic chest pain, positive for shortness of breath. Abdomen/GI: Negative for abdominal pain, nausea, vomiting, diarrhea, and constipation, Back: Negative for injury and pain, : Negative for injury, bleeding, discharge, and swelling, MS/Extremity: Negative for injury and deformity, positive bilateral lower extremity edema. Skin: Negative for injury, rash, and discoloration, Neuro: Negative for headache, weakness, numbness, tingling, and seizure, Psych: Negative for depression, anxiety, Allergy/Immunology: Negative for hives, rash, and allergies Endocrine: Negative for neck swelling, polydipsia, polyuria, polyphagia, and weight changes Hematologic/Lymphatic: Negative for swollen nodes, abnormal bleeding, and unusual bruising Exam: 01:16 Constitutional: This is a well developed, well nourished patient who is awake, alert, sp4 and in no acute distress. Head/Face: Normocephalic, atraumatic. Eyes: Pupils equal round and reactive to light, extra-ocular motions intact. Lids and lashes normal. Conjunctiva and sclera are not injected. Cornea within normal limits. Periorbital areas with no swelling, redness, or edema. ENT: Nares patent. No nasal discharge, no septal abnormalities noted. Tympanic membranes are normal and external auditory canals are clear. Oropharynx with no redness, swelling, or masses, exudates, or evidence of obstruction, uvula midline. Mucous membranes moist. Neck: Trachea midline, no thyromegaly or masses palpated, and no cervical lymphadenopathy. Supple, full range of motion without nuchal rigidity, or vertebral point tenderness. Chest/axilla: Normal chest wall appearance and motion. Nontender with no deformity. No lesions are appreciated. Cardiovascular: Regular rate and rhythm with a normal S1 and S2. No gallops, murmurs, or rubs. Normal PMI, no JVD. No pulse deficits. Respiratory: Lungs have equal breath sounds bilaterally, clear to auscultation and percussion. No rales, rhonchi or wheezes noted. No increased work of breathing, no retractions or nasal flaring. Abdomen/GI: Soft, non-tender, with normal bowel sounds. No distension or tympany. No guarding or rebound. No evidence of tenderness throughout. Skin: Warm, dry with normal turgor. Normal color with no rashes, no lesions, and no evidence of cellulitis. MS/ Extremity: Pulses equal, no cyanosis. Neurovascular intact. Full, normal range of motion. Bilateral lower extremity edema. Neuro: Awake and alert, GCS 15, oriented to person, place, time, and situation. Cranial nerves II-XII grossly intact. Motor strength 5/5 in all extremities. Sensory grossly intact. Psych: Awake, alert, with orientation to person, place and time. Behavior, mood, and affect are within normal limits 01:16 ECG was reviewed by the Attending Physician. EKG time 2250, it reveals AV dual paced sp4 rhythm otherwise EKG unremarkable. Vital Signs: 08/11 22:28 BP 138 / 66; Pulse 89; Resp 20; Temp 97.9(TE); Pulse Ox 98% ; Weight 78.02 kg (R); kl Height 5 ft. 0 in. ; Pain 7/10; 22:28 Body Mass Index 33.59 (78.02 kg, 152.4 cm) kl 22:28 Pain Scale: Adult kl MDM: 22:38 Patient medically screened. sp4 08/12 01:33 Differential diagnosis: Anxiety Reaction CHF exacerbation, Chronic Obstructive sp4 Pulmonary Disease Myocardial Infarction pneumonia, Psychogenic pulmonary edema. Data reviewed: vital signs, nurses notes, old medical records, lab test result(s), EKG, radiologic studies, plain films. Consideration of Admission/Observation Patient was admitted/placed on observation. Escalation of care including admission/observation considered. Management of patient was discussed with the following: Hospitalist: Patient discussed with admitting team.. ED course: Patient will be admitted for management of CHF with exacerbation. She is hemodynamically stable... 08/11 22:36 Order name: CBC with Diff; Complete Time: 01:22 [facility] 08/11 22:36 Order name: CMP; Complete Time: :22 4 08/11 22:36 Order name: Lipase; Complete Time: 01:22 sp4 08/11 22:36 Order name: Urinalysis w/ reflexes sp4 08/11 22:37 Order name: NT PRO-BNP; Complete Time: 01:22 4 08/11 22:37 Order name: PT-INR; Complete Time: 01:22 sp4 08/11 22:37 Order name: Troponin HS; Complete Time: 01:22 4 08/12 02:58 Order name: Glucose, Ancillary Testing EDIA 08/12 08:58 Order name: Glucose, Ancillary Testing EDIA 08/12 09:40 Order name: CBC with Automated Diff EDMS 08/12 09:41 Order name: Basic Metabolic Panel EDIA 08/12 09:46 Order name: Troponin High Sensitivity EDIA 08/12 14:45 Order name: Troponin High Sensitivity EDIA 08/11 22:37 Order name: XRAY Chest (1 view) [facility] 08/11 22:37 Order name: EKG; Complete Time: 22:37 [facility] 08/11 22:36 Order name: IV Saline Lock; Complete Time: 23:52 4 08/11 22:36 Order name: Labs collected and sent; Complete Time: 23:52 4 08/11 22:37 Order name: Cardiac monitoring; Complete Time: 23:40 [facility] 08/11 22:37 Order name: EKG - Nurse/Tech; Complete Time: 23:40 4 08/11 22:37 Order name: IV Saline Lock; Complete Time: 23:40 4 08/11 22:37 Order name: Labs collected and sent; Complete Time: 23:40 4 08/11 22:37 Order name: O2 Per Protocol; Complete Time: 23:40 [facility] 08/11 22:37 Order name: O2 Sat Monitoring; Complete Time: 23:40 sp4 EC:16 Rate is 90 beats/min. Rhythm is regular, Paced. Interpreted by me. 4 Administered Medications: 08/11 23:51 Drug: fentaNYL (PF) IVP 25 mcg Route: IVP; Site: right antecubital; jb4 23:51 Drug: Furosemide IVP 20 mg Route: IVP; Site: right antecubital; jb4 08/12 01:44 Not Given (Patient Refused): Ondansetron IVP 4 mg IVP once; over 2 minutes jb4 Disposition Summary: 08/12/22 01:35 Hospitalization Ordered Hospitalization Status: Observation sp4 Provider: Ihsan Fields sp4 Condition: Stable sp4 Problem: new sp4 Symptoms: have improved sp4 Bed/Room Type: Standard sp4 Location: Telemetry/MedSurg (observation)(08/12/22 16:31) ja1 Room Assignment: 426(08/12/22 16:34) ja1 Diagnosis - Chronic combined systolic (congestive) and diastolic (congestive) heart failure sp4 - Acute diastolic heart failure with exacerbation. sp4 Forms: - Medication Reconciliation Form sp4 - SBAR form sp4 Signatures: Dispatcher [employer] EDMS Viri High RN RN kl Bryson, James, RN RN [facility] Zaid Marcus RN RN ja1 Sonya Leong 6 Jacky Casper MD MD sp4 Corrections: (The following items were deleted from the chart) 01:37 01:35 Telemetry/MedSurg (observation) sp4 bc6 01:37 01:35 sp4 bc6 16:31 01:37 [facility] ER HOLD bc6 ja1 16:31 01:37 ERHOLD- bc6 ja1 16:34 16:31 214 ja1 1
--- NOTE | 2022-08-12 01:36 | ER ---
Nurse's Notes [facility] Name: Teena Simpson Age: 77 yrs Sex: Female : 1945 Arrival Date: 08/11/2022 Time: 22:19 Bed 18 Private MD: Diagnosis: Chronic combined systolic (congestive) and diastolic (congestive) heart failure;Acute diastolic heart failure with exacerbation. Presentation: 08/11 22:28 Chief complaint: Patient states: chest pain SOB began last pm. Coronavirus screen: kl Vaccine status: Patient reports receiving the 2nd dose of the covid vaccine. Ebola Screen: Patient negative for fever greater than or equal to 101.5 degrees Fahrenheit, and additional compatible Ebola Virus Disease symptoms. Initial Sepsis Screen: Does the patient meet any 2 criteria? No. Patient's initial sepsis screen is negative. Does the patient have a suspected source of infection? No. Patient's initial sepsis screen is negative. Risk Assessment: Do you want to hurt yourself or someone else? Patient reports no desire to harm self or others. 22:28 Method Of Arrival: Wheelchair 22:28 Acuity: TYSON 3 Triage Assessment: 22:32 General: Appears in no apparent distress. Behavior is calm, cooperative. Pain: Complains of pain in chest Pain does not radiate. Pain currently is 7 out of 10 on a pain scale. at worst was 10 out of 10 on a pain scale. Quality of pain is described as aching. Respiratory: No deficits noted. Reports shortness of breath on exertion Onset: The symptoms/episode began/occurred gradually, the patient has mild shortness of breath. Historical: - Allergies: 22:30 Augmentin; kl 22:30 Cipro; kl 22:30 Keppra; kl - Home Meds: 22:30 atorvastatin 40 mg Oral tab 1 tab every day at bedtime [Active]; Eliquis 5 mg Oral kl tablet 1 tab 2 times per day [Active]; furosemide 40 mg Oral tab 1 tab daily [Active]; metoprolol succinate 50 mg Oral Tablet, Extended Release 24 hr 1 tab 2 times per day [Active]; Novolin N NPH U-100 Insulin 100 unit/mL Sub-Q tab 20 units every evening [Active]; Phenytoin 100mg Oral 1 tab 2 times per day [Active]; - PMHx: 22:30 Anxiety; Atrial Fib; CHF; Diabetes - IDDM; High Cholesterol; Hypertension; Kidney kl failure stage 4; Low HR; Myocardial infarction; neuropathy; Seizures; - PSHx: 22:30 Appendectomy; Hemorrhoidectomy; Pacemaker-Defib; kl - Immunization history:: Adult Immunizations up to date. - Social history:: Smoking status: Patient denies any tobacco usage or history of. - Family history:: not pertinent. Screenin/24 17:15 [facility] ED Fall Risk Assessment (Adult) History of falling in the last 3 months, ld1 including since admission No falls in past 3 months (0 pts). Abuse screen: Denies threats or abuse. Denies injuries from another. Nutritional screening: No deficits noted. Tuberculosis screening: No symptoms or risk factors identified. Assessment: 08/11 22:45 General: Appears in no apparent distress. comfortable, Behavior is calm, cooperative, jb4 appropriate for age. Pain: Complains of pain in chest and abdomen Pain does not radiate. Pain currently is 8 out of 10 on a pain scale. Neuro: Level of Consciousness is awake, alert, obeys commands, Oriented to person, place, time, situation. Cardiovascular: Patient's skin is warm and dry. Respiratory: Airway is patent Respiratory effort is even, unlabored, Respiratory pattern is regular, symmetrical. GI: No signs and/or symptoms were reported involving the gastrointestinal system. : No signs and/or symptoms were reported regarding the genitourinary system. EENT: No signs and/or symptoms were reported regarding the EENT system. Derm: Skin is intact, Skin is pink, warm \T\ dry. Musculoskeletal: Circulation, motion, and sensation intact. Range of motion: intact in all extremities. 08/12 00:00 Reassessment: Patient appears in no apparent distress at this time. Patient and/or jb4 family updated on plan of care and expected duration. Pain level reassessed. Patient is alert, oriented x 3, equal unlabored respirations, skin warm/dry/pink. Vital Signs: 08/11 22:28 BP 138 / 66; Pulse 89; Resp 20; Temp 97.9(TE); Pulse Ox 98% ; Weight 78.02 kg (R); kl Height 5 ft. 0 in. ; Pain 7/10; 22:28 Body Mass Index 33.59 (78.02 kg, 152.4 cm) kl 22:28 Pain Scale: Adult ED Course: 22:21 Patient arrived in ED. jj6 22:30 Triage completed. 22:35 Jacky Casper MD is Attending Physician. sp4 22:53 XRAY Chest (1 view) In Process Unspecified. EDMS 23:39 Ej Mcmillan, RN is Primary Nurse. jb4 08/12 01:00 Inserted saline lock: 20 gauge in right antecubital area, using aseptic technique. oe Blood collected. 01:34 Ihsan Fields MD is Hospitalizing Provider. sp4 17:15 No provider procedures requiring assistance completed. Patient admitted, IV remains in ld1 place. 17:15 Patient has correct armband on for positive identification. Placed in gown. Bed in low ld1 position. Call light in reach. Side rails up X2. vacation guide on. Pulse ox on. NIBP on. 17:16 Arm band placed on right wrist. ld1 Administered Medications: 08/11 23:51 Drug: fentaNYL (PF) IVP 25 mcg Route: IVP; Site: right antecubital; jb4 23:51 Drug: Furosemide IVP 20 mg Route: IVP; Site: right antecubital; jb4 08/12 01:44 Not Given (Patient Refused): Ondansetron IVP 4 mg IVP once; over 2 minutes jb4 Medication: 17:16 VIS not applicable for this client. ld1 Outcome: 01:35 Decision to Hospitalize by Provider. sp4 17:16 Admitted to Med/surg accompanied by tech, via wheelchair, room 425, Report called to ld1 RN 17:16 Condition: stable 17:16 Instructed on the need for admit. 17:16 Patient left the ED. ld1 Signatures: Dispatcher [employer] EDMS Viri High RN RN Ej Mcmillan, RN RN jb4 Jesus Guadalupe Lauren, RN RN ld1 Pratima Perez6 Jacky Casper MD MD sp4
--- NOTE | 2022-08-12 02:01 | P.HP ---
Certification for Inpatient Patient admitted to: Observation With expected LOS: <2 Midnights Patient will require the following post-hospital care: None Practitioner: I am a practitioner with admitting privileges, knowledge of patient current condition, hospital course, and medical plan of care. Services: Services provided to patient in accordance with Admission requirements found in Title 42 Section 412.3 of the Code of Federal Regulations <Tremayne Martínez - Last Filed: 08/12/22 01:57> Patient History Date of Service: 08/12/22 Reason for admission: CHF History of Present Illness: 77-year-old female with history of chronic systolic congestive heart failure, atrial fibrillation on chronic anticoagulation, CKD 4, insulin-dependent diabetes, hypertension, hyperlipidemia presents emergency department chief complaint of shortness of breath. She reports having trouble falling asleep and having sudden onset of dyspnea, orthopnea that has not resolved yet. She was most recently admitted for NSTEMI on 08/02/2022, during that admission she was initiated on amiodarone as she was having runs of VT. She was evaluated by cardiology during that stay and recommended for outpatient stress test which is scheduled for 09/07/2022. Her most recent echocardiogram is from 05/08/2022 which shows severely depressed left ventricular ejection fraction around 25 to 30%, severe global hypokinesis, mild mitral tricuspid regurgitation. She is evaluated in the emergency department her labs were significant for elevated BNP 13,552 creatinine 2.01 glucose 249 chest x-ray negative for acute findings. ED provider wishes to admit under observation for CHF exacerbation. She is given IV Lasix in ED. - Past Medical/Surgical History Diabetic: Yes -: Seizures -: Atrial fibrillation on chronic anticoagulation -: Diabetes mellitus type 2insulin-dependent -: Hypertension -: Hyperlipidemia -: Chronic systolic congestive heart failure -: CAD -: CKD 4 -: neuropathy -: Systolic CHF- EF 20-25% -: defibrilator -: PNA -: defib/pacemaker placement x2 -: exploratory lap -: appendectomy -: Hemorrhoidectomy -: cyst removal of arms and feet Psychosocial/ Personal History: Patient lives at home with family - Family History Father -: Hypertension, Lung disease Mother -: Heart disease, Hypertension, Diabetes Sister -: Diabetes Brother -: Diabetes, Kidney disease - Social History Smoking Status: Never smoker Alcohol use: No CD- Drugs: No Caffeine use: Yes Place of Residence: Home <Tremayne Martínez Scott - Last Filed: 08/12/22 01:57> Date of Service: 08/12/22 <Ihsan Fields - Last Filed: 08/12/22 18:56> Allergies amoxicillin [From Augmentin] Adverse Reaction (Verified 07/27/22 00:05) Nausea/Vomiting ciprofloxacin Adverse Reaction (Verified 07/27/22 00:05) Nausea/Vomiting clavulanic acid [From Augmentin] Adverse Reaction (Verified 07/27/22 00:05) Nausea/Vomiting Home Medications: Atorvastatin Calcium [Lipitor] 40 mg PO BEDTIME 08/07/21 Insulin NPH Human Isophane [Novolin N] 30 unit SQ 0800,2000 08/07/21 PHENYTOIN ER Cap [Dilantin ER Cap*] 50 mg PO BID 08/07/21 Metoprolol Succinate [Toprol Xl*] 50 mg PO BID 6AM 6PM #60 tab 05/09/22 Sacubitril/Valsartan [Entresto 24 mg-26 mg Tablet] 0.25 tab PO DAILY 07/10/22 Apixaban [Eliquis] 5 mg PO BID 07/12/22 Furosemide [Lasix*] 40 mg PO DAILY #30 tab 07/20/22 Amiodarone HCl [Cordarone*] 400 mg PO BID #72 tab 08/05/22 Review of Systems 10-point ROS is otherwise unremarkable Respiratory: Shortness of Breath Cardiovascular: Orthopnea, Paroxysmal Noc. Dyspnea <Tremayne Martínez Lauryn Chavez - Last Filed: 08/12/22 01:57> Physical Examination - Physical Exam General: Alert, In no apparent distress, Oriented x3 HEENT: Atraumatic, PERRLA, Mucous membr. moist/pink, EOMI, Sclerae nonicteric Neck: Supple, 2+ carotid pulse no bruit, No LAD, Without JVD or thyroid abnormality Respiratory: Clear to auscultation bilaterally, Normal air movement Cardiovascular: No edema, Regular rate/rhythm, Normal S1 S2 Capillary refill: <2 Seconds Gastrointestinal: Normal bowel sounds, No tenderness Musculoskeletal: No tenderness Integumentary: No rashes Neurological: Normal gait, Normal speech, Normal strength at 5/5 x4 extr, Normal tone, Normal affect Lymphatics: No axilla or inguinal lymphadenopathy - Studies Laboratory Data (last 24 hrs) 08/11/22 23:16: PT 12.7, INR 1.07 08/11/22 23:16: Sodium 137, Potassium 3.9, BUN 63 H, Creatinine 2.01 H, Glucose 249 H, Total Bilirubin 0.2, AST 29, ALT 34, Alkaline Phosphatase 135 H, Lipase 23 08/11/22 23:16: WBC 8.20, Hgb 9.5 L, Hct 28.9 L, Plt Count 203 <Tremayne Martínez - Last Filed: 08/12/22 01:57> - Studies Laboratory Data (last 24 hrs) 08/11/22 23:16: PT 12.7, INR 1.07 08/11/22 23:16: Sodium 137, Potassium 3.9, BUN 63 H, Creatinine 2.01 H, Glucose 249 H, Total Bilirubin 0.2, AST 29, ALT 34, Alkaline Phosphatase 135 H, Lipase 23 08/11/22 23:16: WBC 8.20, Hgb 9.5 L, Hct 28.9 L, Plt Count 203 <Ihsan Fields - Last Filed: 08/12/22 18:56> Assessment and Plan - Plan Assessment: Acute on chronic systolic congestive heart failure Atrial fibrillation on chronic anticoagulation Diabetes mellitus type 2insulin-dependent with hyperglycemia CKD 4 Hypertension Hyperlipidemia Plan: Acute on chronic systolic congestive heart failure Continue IV diuresis, plan for outpatient stress test which is scheduled for 09/07/2022. Echocardiogram from April of this year shows severely depressed left ventricular ejection fraction between 25 and 30%, severe global hypokinesis. Heart cath in 2019 with clean coronaries. Atrial fibrillation on chronic anticoagulation Home medications including Eliquis, metoprolol, amiodarone continued. Diabetes mellitus type 2insulin-dependent with hyperglycemia ACHS Accu-Chek, sliding scale insulin. CKD 4 Similar to baseline, consult nephrology as needed for worsening. Hypertension Hyperlipidemia Home medications continued. DVT PPX: Continue Eliquis Code status: Full Discharge Plan: Home Plan to discharge in: 24 Hours - Advance Directives Does patient have a Living Will: No Does patient have a Durable POA for Healthcare: Yes - Code Status/Comfort Care Code Status Assessed: Yes (Full code) Critical Care: No Time Spent Managing Pts Care (In Minutes): 55 <Tremayne Martínez - Last Filed: 08/12/22 01:57> - Plan patient seen and examined on rounds this morning. feels better, still on oxygen reports 3 days of worse swelling in b/l legs with symptoms as noted above as well states her lasix was decreased to daily from BID by her portfolio manager weeks ago and has been having increased swelling issues since then feels swelling has improved, still short of breath slight chest pain <Ihsan Fields - Last Filed: 08/12/22 18:56>
[2022-08-12] MEDS: ONDANSETRON 4 MG/2 ML VIAL IV PRN ×2 (03:21→17:31)
[2022-08-12 03:23] VITALS: BMI 33.5
[2022-08-12] MEDS ORDERED: ONDANSETRON 4 MG/2 ML VIAL ONE (03:23)
[2022-08-12] MEDS ORDERED: MELATONIN 5 MG TABLET PO ONE (03:23)
[2022-08-12] MEDS: MELATONIN 5 MG TABLET PO PRN ×2 (03:47→20:45)
[2022-08-12] MEDS: METOPROLOL XL 50 MG TAB PO SCH ×2 (06:00→17:31)
[2022-08-12] MEDS ORDERED: METOPROLOL XL 50 MG TAB PO ONE (07:20)
--- NOTE | 2022-08-12 07:24 | P.PN ---
Date of Service: 08/12/22 Subjective: ROS: 10 point ROS as noted above, otherwise negative Physical Exam: GEN: Alert, oriented, NAD HEENT: Normal conjunctiva, sclera anicteric CV: Regular rate and rhythm, no edema Pulm: Nonlabored respirations on room air ABD: Soft, nontender, nondistended MSK: No joint tenderness Integumentary: No rashes Neuro: Normal speech, normal affect vitals reviewed Problem List: Acute on chronic systolic congestive heart failure Atrial fibrillation on chronic anticoagulation IDDM2 with hyperglycemia CKD 4 Hypertension Hyperlipidemia Acute on chronic systolic congestive heart failure Continue IV diuresis, plan for outpatient stress test which is scheduled for 09/07/2022. Echocardiogram from April of this year shows severely depressed left ventricular ejection fraction between 25 and 30%, severe global hypokinesis. Heart cath in 2019 with clean coronaries. Atrial fibrillation on chronic anticoagulation continue home medications including Eliquis, metoprolol, amiodarone IDDM2 with hyperglycemia ACHS Accu-Chek, sliding scale insulin. CKD 4 ~baseline Hypertension Hyperlipidemia continue Home medications VTE: home eliquis Code: full Dispo: home ~24 hours
[2022-08-12] MEDS: INSULIN -REGULAR HUMAN 50 UNIT/0.5 ML ML SQ SCH ×4 (07:30→21:00)
[2022-08-12] MEDS: APIXABAN 5 MG TABLET PO SCH ×2 (09:00→20:45)
[2022-08-12] MEDS: FUROSEMIDE 40 MG/4 ML VIAL IV SCH (09:00)
[2022-08-12] MEDS: SACUBITRIL/VALSARTAN 24/26 MG TAB PO SCH (09:00)
[2022-08-12] MEDS ORDERED: AMIODARONE HCL 200 MG TAB PO SCH (09:00)
[2022-08-12 09:23] LABS: Absolute Lymphocytes (CBC) 1.4 K/uL (0.7-4.9); Hematocrit 29.4 % (36.0-45.0); Lymphocytes % 15.1 % (15.3-44.8); MCV 94.9 fL (80-100); MPV 10.8 fL (7.6-11.3)
[2022-08-12 09:40] LABS: Potassium 4.4 mEq/L (3.5-5.1)
[2022-08-12] MEDS ORDERED: FUROSEMIDE 40 MG/4 ML VIAL ONE (09:53)
[2022-08-12] MEDS ORDERED: INSULIN -REGULAR HUMAN 50 UNIT/0.5 ML ML ONE (09:54)
[2022-08-12] MEDS ORDERED: BENZONATATE 100 MG CAP PO PRN (12:17)
[2022-08-12] MEDS ORDERED: ATORVASTATIN 40 MG TAB PO SCH (21:00)
[2022-08-12 21:03] LABS: Urine Bacteria None Seen /HPF (<20); Urine Bilirubin NEGATIVE (Negative); Urine Blood Negative (Negative); Urine Clarity Clear (Clear); Urine Color Light-Yellow (Yellow); Urine Glucose NEGATIVE (Negative); Urine Mucus Slight /HPF (None Seen); Urine Protein TRACE (Negative); Urine RBC <5 /HPF (None Seen); Urine Urobilinogen Normal (Normal)
--- NOTE | 2022-08-12 22:24 | RAD REPORT ---
EXAM DESCRIPTION: RAD - Chest Single View - 08/11/2022 10:51 pm CLINICAL HISTORY: CHEST PAIN. COMPARISON: Chest radiograph from July 19, 2022. TECHNIQUE: Single view AP chest radiograph(s). FINDINGS: Trace perihilar interstitial prominence, similar to prior. No focal infiltrate identified. No pleural effusion. No pneumothorax. Mild cardiomegaly status post biventricular AICD. No significa nt osseous abnormality. IMPRESSION: No acute abnormality identified. Similar appearance of trace perihilar interstitial prom inence and mild cardiomegaly. Electronically signed by: Viviana Suárez MD 08/11/2022 11:14 PM CDT Due to temporary technical issues with the PACS/Fluency reporting system, reports are being signed by the in house radiologists without review as a courtesy to insure prompt reporting. The interpreting radiologist is fully responsible for the content of the report.
[2022-08-13 03:43] LABS: Hematocrit 30.5 % (36.0-45.0); MCV 94.8 fL (80-100); MPV 10.9 fL (7.6-11.3); RBC Red Blood Cell Count 3.22 M/uL (3.86-4.86)
[2022-08-13 04:02] LABS: Magnesium 2.2 mg/dL (1.6-2.4); Potassium 3.9 mEq/L (3.5-5.1)
[2022-08-13] MEDS: METOPROLOL XL 50 MG TAB PO SCH (05:08)
--- NOTE | 2022-08-13 09:10 | P.DS ---
Admission Date: 08/12/22 Discharge Date: 08/13/22 Reason for Admission: CHF Brief History of Present Illness: 77yo F, PMH: chronic systolic congestive heart failure, atrial fibrillation on chronic anticoagulation, CKD 4, insulin-dependent diabetes, hypertension, hyperlipidemia Patient presents emergency department chief complaint of shortness of breath. She reports having trouble falling asleep and having sudden onset of dyspnea, orthopnea that has not resolved yet. She was most recently admitted for NSTEMI on 08/02/2022, during that admission she was initiated on amiodarone as she was having runs of VT. She was evaluated by cardiology during that stay and recommended for outpatient stress test which is scheduled for 09/07/2022. Her most recent echocardiogram is from 05/08/2022 which shows severely depressed left ventricular ejection fraction around 25 to 30%, severe global hypokinesis, mild mitral tricuspid regurgitation. Hospital Course: Problem List: Acute on chronic systolic congestive heart failure Atrial fibrillation on chronic anticoagulation IDDM2 with hyperglycemia CKD 4 Hypertension Hyperlipidemia Patient presented with chest pain and shortness of breath. Troponins were negative x3. Labs were otherwise unremarkable / at her baseline. Chest x-ray noted trace pulmonary edema., similar to prior x-rays. She was give IV lasix and had improvement/resolution of her symptoms. Chest pain resolved and her breathing improved. Patient has a planned stress test for 09/07/2022. Renal function remained stable and at her baseline. Patient and her family reported increased swelling in lower legs over the last 2-3 days. Her symptoms are likely multifactorial with a component of fluid overload/ CHF and concern for sleep apnea. She describes at times able to fall asleep fine, but wakes up 10am-2pm feeling short of breath / gasping for air which leads to her coming to the hospital. Recommended patient to keep a daily weight log - check weight at same time each day. If notices >2lb weight gain, swelling in legs, and symptoms of fluid retention (shortness of breath, can't lay flat, etc) recommend taking a 2nd dose of lasix that day. if needing to do this more frequently, or 2 days in a row - recommended to contact her PCP and/or environmental epidemiologist. Patient has symptoms that are consistent and highly concerning for sleep apnea. Recommend obtaining a sleep study to further evaluate. To follow up with her PCP or see a [employer]/sleep medicine physician, (Dr. Rodrigues in [place]) is an option Explained if due to sleep apnea, symptoms will persist until she gets the sleep study and treated with CPAP. Medications continue as previously prescribed recommended taking a 2nd lasix pill today, then resume her usual daily dose and follow instructions as noted above. Follow up: PCP 3-5 days Cardiology within 1-2 weeks Pulmonology - Dr. Rodrigues within 2-4 weeks for sleep study Physical Exam: GEN: Alert, oriented, NAD HEENT: Normal conjunctiva, sclera anicteric CV: Regular rate and rhythm, trace edema Pulm: Nonlabored respirations on room air ABD: Soft, nontender, nondistended MSK: No joint tenderness Integumentary: No rashes Neuro: Normal speech, normal affect Vital Signs/Physical Exam: Temp Pulse Resp BP Pulse Ox 97.4 F 90 18 129/72 99 08/13/22 04:00 08/13/22 05:08 08/13/22 04:00 08/13/22 05:08 08/13/22 04:00 Laboratory Data at Discharge: WBC 6.80 thou/uL (4.3-10.9) 08/13/22 02:54 Hgb 10.1 g/dL (12.0-15.0) L 08/13/22 02:54 Hct 30.5 % (36.0-45.0) L 08/13/22 02:54 Plt Count 209 thou/uL (152-406) 08/13/22 02:54 PT 12.7 SECONDS (9.2-12.8) 08/11/22 23:16 INR 1.07 08/11/22 23:16 Sodium 140 mEq/L (136-145) 08/13/22 02:54 Potassium 3.9 mEq/L (3.5-5.1) 08/13/22 02:54 BUN 55 mg/dL (7-18) H 08/13/22 02:54 Creatinine 2.00 mg/dL (0.55-1.02) H 08/13/22 02:54 Glucose 195 mg/dL (74-106) H 08/13/22 02:54 Magnesium 2.2 mg/dL (1.6-2.4) 08/13/22 02:54 Total Bilirubin 0.2 mg/dL (0.2-1.0) 08/11/22 23:16 AST 29 U/L (15-37) 08/11/22 23:16 ALT 34 U/L (13-56) 08/11/22 23:16 Alkaline Phosphatase 135 U/L (45-117) H 08/11/22 23:16 Lipase 23 U/L (13-75) 08/11/22 23:16 Home Medications: Atorvastatin Calcium [Lipitor] 40 mg PO BEDTIME 08/07/21 Insulin NPH Human Isophane [Novolin N] 30 unit SQ 0800,199908/07/21 PHENYTOIN ER Cap [Dilantin ER Cap*] 50 mg PO BID 08/07/21 Metoprolol Succinate [Toprol Xl*] 50 mg PO BID 6AM 6PM #60 tab 05/09/22 Sacubitril/Valsartan [Entresto 24 mg-26 mg Tablet] 0.25 tab PO DAILY 07/10/22 Apixaban [Eliquis] 5 mg PO BID 07/12/22 Furosemide [Lasix*] 40 mg PO DAILY #30 tab 07/20/22 Amiodarone HCl [Cordarone*] 400 mg PO BID #72 tab 08/05/22 Physician Discharge Instructions: Patient presented with chest pain and shortness of breath. Troponins were negative x3. Labs were otherwise unremarkable / at her baseline. Chest x-ray noted trace pulmonary edema., similar to prior x-rays. She was give IV lasix and had improvement/resolution of her symptoms. Chest pain resolved and her breathing improved. Patient has a planned stress test for 09/07/2022. Renal function remained stable and at her baseline. Patient and her family reported increased swelling in lower legs over the last 2-3 days. Her symptoms are likely multifactorial with a component of fluid overload/ CHF and concern for sleep apnea. She describes at times able to fall asleep fine, but wakes up 10am-2pm feeling short of breath / gasping for air which leads to her coming to the hospital. Recommended patient to keep a daily weight log - check weight at same time each day. If notices >2lb weight gain, swelling in legs, and symptoms of fluid retention (shortness of breath, can't lay flat, etc) recommend taking a 2nd dose of lasix that day. if needing to do this more frequently, or 2 days in a row - recommended to contact her PCP and/or environmental epidemiologist. Patient has symptoms that are consistent and highly concerning for sleep apnea. Recommend obtaining a sleep study to further evaluate. To follow up with her PCP or see a [employer]/sleep medicine physician, (Dr. Rodrigues in [place]) is an option Explained if due to sleep apnea, symptoms will persist until she gets the sleep study and treated with CPAP. Medications continue as previously prescribed recommended taking a 2nd lasix pill today, then resume her usual daily dose and follow instructions as noted above. Follow up: PCP 3-5 days Cardiology within 1-2 weeks Pulmonology - Dr. Rodrigues within 2-4 weeks for sleep study Followup: Elaine Lamb MD [Primary Care Provider] - 1 Week (Please call to schedule an appointment.) Time spent managing pt's care (in minutes): 45
[2022-08-13] MEDS: FUROSEMIDE 40 MG/4 ML VIAL IV SCH (09:31)
[2022-08-13] MEDS: SACUBITRIL/VALSARTAN 24/26 MG TAB PO SCH (09:31)
[2022-08-13] MEDS: APIXABAN 5 MG TABLET PO SCH (09:31)
[2022-08-13 09:36] VITALS: BP 114/65
[2022-08-13] MEDS: INSULIN -REGULAR HUMAN 50 UNIT/0.5 ML ML SQ SCH (09:36)
[2022-08-13 10:07] VITALS: TEMP 98.5
[2022-08-13 11:18] VITALS: O2SAT 98
--- NOTE | 2022-08-13 14:24 | EKG ---
Test Date: 2022-08-11 Test Time: 22:50:36 Heating And Ventilating Tender: ANNETTE MEASUREMENT RESULTS: Intervals: Rate: 90 DE: 156 QRSD: 172 QT: 484 QTc: 592 [place]: P: 77 DE: 156 QRS: -77 T: 108 INTERPRETIVE STATEMENTS: AV dual-paced rhythm Biventricular pacemaker detected Abnormal ECG Compared to ECG 08/02/2022 18:23:52 No significant changes Electronically Signed On 08-13-22 14:22:07 CDT by Armodn Moore
== END 2022-08-13 11:34 | disposition home or self-care (01) ==
LOC: ER 22:19 → ERHOLD 08-12 01:46 → 4TH 08-12 16:50
PROVIDERS: ADMIT Hospitalist; ATTEND Hospitalist
DX: I50.23 Acute on chronic systolic (congestive) heart failure (principal); I48.11 Longstanding persistent atrial fibrillation; E11.65 Type 2 diabetes mellitus with hyperglycemia; N18.4 Chronic kidney disease, stage 4 (severe); E78.5 Hyperlipidemia, unspecified; Z79.01 Long term (current) use of anticoagulants
CPT/HCPCS: 93005; 85025 ×2; 81001; 80048 ×2; 36415 ×2; 83735; 85610; 82947 ×6; 85027; 84484 ×3; 83690; 80053; 83880; 71045; 96375; 96374; 99285; J1815 ×2; J1940 ×3; J3010; J2405 ×2; G0378

== ENCOUNTER 2022-09-14 01:52 | Emergency (ER) | payer OTHER ==
--- OUTSIDE RECORDS SUMMARY | 2022-09-14 02:00 | XMS REPORT | Continuity of Care Document ---
:1945 Author Organization [facility] t Address [address] [place] [address] [address] [place] [address] Care Team Providers Name Role Phone CAMRON ARIAS Primary Care Physician Unavailable Elaine Lamb Attending Clinician Unavailable FAM CRAIG Attending Clinician Unavailable SILVERIO ADAM Attending Clinician Unavailable SRIRAM HEATH Attending Clinician Unavailable Kumar SQUIRES, Sriram Attending Clinician Doctor Unassigned, [place] Attending Clinician Unavailable 2, [facility] Attending [...] IBIKUNLE, FOLUSHO F Attending Clinician Unavailable Ibikunle REHABILITATION CONSULTANT, Folusho F Attending Clinician Major SQUIRES, Clare Combs Attending Clinician CLARE GONSALVES Attending Clinician Unavailable Tommy BURK, Luis Alberto Attending Clinician Unavailable Mitchell Garcia MD Attending Clinician Po, [facility] Main Attending Clinician Unavailable Willian SQUIRES, Ortega Lester Attending Clinician [phone] ORTEGA DORSEY Attending Clinician Unavailable Cielo Bautista RN Attending Clinician Unavailable Ananya Gomez DO Attending Clinician ANANYA GOMEZ Attending Clinician Unavailable JENINE BACA Attending Clinician Unavailable Jennie Lowery Attending Clinician ARGENIS BARNETT Attending Clinician Unavailable Damien Hugo MD Attending Clinician Soni Hunter MD Attending Clinician Argenis Barnett MD Attending Clinician Esperanza Cronin RN Attending Clinician Unavailable ANUJ GONZALES Attending Clinician Unavailable Hudson Wolfe MD Attending Clinician Anuj Gonzales MD Attending Clinician Misael Castro MD Attending Clinician GRAMM, SHANTEL A Attending Clinician Unavailable Gramm REHABILITATION CONSULTANT, Shantel A Attending Clinician Sabina Barba MD Attending Clinician SABINA BARBA Attending Clinician Unavailable Ericka Chen Attending Clinician ERICKA ACKERMAN Attending Clinician Unavailable Lab, Ang - Db Attending Clinician Unavailable VIRI PRICE Attending Clinician Unavailable Lab, [facility] Fam Pob I Attending Clinician Unavailable Jose REHABILITATION CONSULTANT, Karla Attending Clinician Dee REHABILITATION CONSULTANT, Viri Martinez Attending Clinician Teri Samano RN Attending Clinician Unavailable ERICH PANTOJA Attending Clinician Unavailable Pacemaker/Icd, [facility] Attending Clinician Unavailable Omole REHABILITATION CONSULTANT, Min Godinez Attending Clinician [phone] OMOLE, MIN GRETCHEN Attending Clinician Unavailable Nita Degroot DO Attending Clinician NITA DEGROOT Attending Clinician Unavailable NITA DEGROOT Attending Clinician Unavailable Provider, [facility] Attending Clinician Unavailable Anedevante REHABILITATION CONSULTANT, Monica Attending Clinician MONICA MCCORMICK Attending Clinician Unavailable Calli BURK, Jo More Attending Clinician Unavailable Kirt Thomason DO Attending Clinician Gab Servin MD Attending Clinician GAB SERVIN Attending Clinician Unavailable Cielo Henry RN Attending Clinician Fam Craig MD Attending Clinician [phone] Edgar Cortés MD Attending Clinician [phone] EDGAR CORTÉS Attending Clinician Unavailable Lubna Lal MD Attending Clinician LUBNA LAL Attending Clinician Unavailable , [facility] Echo Room 1 - Attending Clinician Unavailable Visit, [facility] Nurse Attending Clinician Unavailable Dago Gross MDHKaren Attending Clinician Pc, [facility] Vascular Room 1 - Attending Clinician Unavailable ALEXUS RAMOS Attending Clinician Unavailable ALEXUS RAMOS Attending Clinician Unavailable DAGO GROSSHKaren Attending Clinician Unavailable EVAN MARTIN Attending Clinician Unavailable EKATERINA BOUDREAUX Attending Clinician Unavailable Nate REHABILITATION CONSULTANT, Madeleine Strauss Attending Clinician Emily Lezama Attending Clinician [facility], Adc Heart Failure Cardio Attending Clinician [...] Policy Number Effective Date Expiration Date Lucy troibio BLAKE/SANDRA [id number] 2019 MEDICARE ADVANTAGE 00:00:00 HUMANA CHOICE [id number] 2022 00:00:00 Problems Condition Condition Condition Status Onset Resolution Last Treating Co mments Source Name Details Category Date Date Treatment Clinician Date Pulmonary Pulmonary Disease Active 2021-02 Uni vers hypertensi hypertensi 2-31 it y of on on 00:00: [address] Branch Presence Presence Disease Active 2021-02 Unive rs of cardiac of cardiac 2-30 it y of resynchron [place]ynchron [place] ization ization 00 Medical therapy therapy Branch defibrilla defibrilla tor tor (KENNEL HELPER-D) (KENNEL HELPER-D) SOB SOB Disease Active 2021-02 Univers (shortness (shortness 2-29 it y of of breath) of breath) 00:[place]: [place] 00 Medical Branch Atrial Atrial Disease Active Univers tachycardi tachycardi 2-25 it y of a a 00:00: [address] Branch Dizziness Dizziness Disease Active Uni [...] Added automatic ally from request for surgery [id number] Refusal of Refusal of Disease Active 2020-02 U nivers blood blood 2-13 ity of transfusio transfusio 00:[place] as ns as 00 Medical patient is patient is Br anch [employer] Witness Osteopenia Osteopenia Disease Active 2020-02 U [...] rs LFTs LFTs 5- ity of 00:00: [place] [facility] Multiple Multiple Disease Active Overview: [...] 5-03 ity of polyps polyps 00:00: [address] Branch History of History of Disease Active U nivers pulmonary pulmonary 2-17 ity of embolism embolism 00:00: [place] [facility] Branch ICD ICD Disease Active Univers (implantab (implantab 2-17 it y of le le 00:00: [place] cardiovert cardiovert 00 Me dical er-defibri er-defibri Br anch llator) in llator) in place place Atrial Atrial Disease Active Univers fibrillati fibrillati 1-16 it y of on on 00:00: [address] Branch Syncope Syncope Disease Active Univers 1-15 ity of 00:00: [place] [facility] Branch DM DM Disease Active Univers (diabetes (diabetes 8-31 ity of mellitus), mellitus), [place] type 2 type 2 00 Medical with renal with renal Br anch complicati complicati ons ons Anxiety Anxiety Disease Active Univers ity of [facility] CKD CKD Disease Active Univers (chronic (chronic ity of kidney kidney [place] disease) disease) Medica l stage 4, stage 4, Branch GFR 15-29 GFR 15-29 ml/min ml/min Epilepsy Epilepsy Disease Active Unive rs ity of [facility] Esophageal Esophageal Disease Active U nivers reflux reflux ity of [facility] HLD HLD Disease Active Univers (hyperlipi (hyperlipi it y of demia) demia) [facility] HTN HTN Disease Active Univers (hypertens (hypertens it y of ion) ion) [place] [facility] Non-ischem Non-ischem Disease Active U [...] tobacco Passive smoker Un iversity of use [place] [facility] History SDOH University o f Alcohol Std Drinks [place] [facility] History SDOH University o f Alcohol Binge [place] [facility] al Branch History SDOH Social Unive rsity of Connections [facility] Med ical Together Branch History SDOH Social Unive rsity of Connections [facility] Medical Branch History SDOH Social Unive rsity of Connections [place] [facility] Membership Branch History SDOH Social Unive rsity of [facility] Medical Meetings Branch Exposure to 2022-03-12 2022-03-22 Not sure University of SARS-CoV-2 (event) 00:00:00 07:50:00 [facility] Branch Alcohol intake 2022-03-14 2022-03-14 Current University of 00:00:00 00:00:00 non-drinker of [facility] alcohol Branch (finding) History SDOH 2022-02-17 2022-02-17 1 University o f Alcohol Frequency 00:00:00 00:00:00 [facility] edical Branch History SDOH Social 2022-02-17 2022-02-17 5 Unive rsity of Connections Phone 00:00:00 00:00:00 [facility] edical Branch History SDNH Social 2022-02-17 2022-02-17 98 Unive rsity of Connections Living 00:00:00 00:00:00 [place] [facility] History SDOH 2022-02-17 2022-02-17 7 University o f Physical Activity 00:00:00 00:00:00 [facility] edical DPW Branch History SDNH 2022-02-17 2022-02-17 1 University o f Physical Activity 00:00:00 00:00:00 [place] M edical MPS Branch History SDNH 2022-02-17 2022-02-17 5 University o f Financial 00:00:00 00:00:00 [place] [facility] History SDOH Food 2022-02-17 2022-02-17 1 Univers ity of Worry 00:00:00 00:00:00 [place] [facility] History SDOH Food 2022-02-17 2022-02-17 1 Univers ity of Scarcity 00:00:00 00:00:00 [place] [facility] History SDNH 2022-02-17 2022-02-17 2 University o f Transport Med 00:00:00 00:00:00 [place] Medic al Branch History [facility] 2022-02-17 2022-02-17 2 University o f Transport Non-Med 00:00:00 00:00:00 [facility] edical Branch Tobacco use and 2022-02-16 2022-02-16 Smokeless Universit y of exposure 00:00:00 00:00:00 tobacco non-user [facility] dical Branch Tobacco Comment 2022-02-16 2022-02-16 exposed to "a Univer sity of 00:00:00 00:00:00 lot" of passive [place] Med ical smoke from Branch Sex [birth year] Universit y of 00:00:00 00:00:00 [facility] Smoking Status Start Date Stop Date Source Never smoked tobacco [facility] Medications Ordered Filled Start Stop Current Ordering Indication Dosage Frequency Signature Comments Components Source Medication Medication Date Date Medication? Clinician (SIG) Name Name metoprolol Yes [id number] 50mg Take 1 Univers succinate 2-07 tablet by ity o f XL 50 mg 24 00:00: mouth 2 [place] hr tablet 00 (two) Medical times Branch daily. amiodarone Yes [id number] 200mg Take 1 Univers 200 mg 1-26 tablet by ity of tablet 00:00: mouth [place] 00 daily. Medical Branch amiodarone Yes [id number] 200mg Take 1 Univers 200 mg 1-26 tablet by ity of tablet 00:00: mouth [place] 00 daily. Medical Branch amiodarone Yes [id number] 200mg Take 1 Univers 200 mg 1-26 tablet by ity of tablet 00:00: mouth [place] 00 daily. Medical Branch amiodarone Yes [id number] 200mg Take 1 Univers 200 mg 1-26 tablet by ity of tablet 00:00: mouth [place] 00 daily. Medical Branch amiodarone Yes [id number] 200mg Take 1 Univers 200 mg 1-26 [...] at 6am and 6pm furosemide 2022- Yes [id number] 40mg Take 1 Univers 40 mg 1-10 tablet by ity of tablet 00:00: mouth [place] 00 every Medical morning Branch and evening. metoprolol Yes [id number] 50mg Take 1 Univers succinate 1-10 tablet by ity o f XL 50 mg 24 00:00: mouth 2 [place] hr tablet 00 (two) Medical times Branch daily. apixaban Yes 1358 2.5mg Take 1 Univer s (ELIQUIS) 1-10 tablet by ity o f 2.5 mg 00:00: mouth 2 [place] tablet 00 (two) Medical times Branch daily. Indication s: atrial fibrillati on furosemide Yes [id number] 40mg Take 1 Univers 40 mg 1-10 tablet by ity of tablet 00:00: mouth [place] 00 every Medical morning Branch and evening. metoprolol 2022-0 Yes [id number] 50mg Take 1 Univers succinate 1-10 tablet [...] s: atrial fibrillati on furosemide 0 Yes [id number] 40mg Take 1 Univers 40 mg 1-10 tablet by ity of tablet 00:00: mouth [place] 00 every Medical morning Branch and evening. metoprolol 2022-0 Yes [id number] 50mg Take 1 Univers succinate 1-10 tablet [...] s: atrial fibrillati on furosemide 0 Yes [id number] 40mg Take 1 Univers 40 mg 1-10 tablet by ity of tablet 00:00: mouth [place] 00 every Medical morning Branch and evening. metoprolol 2022-0 Yes [id number] 50mg Take 1 Univers succinate 1-10 tablet [...] s: atrial fibrillati on furosemide 2022-0 Yes [id number] 40mg Take 1 Univers 40 mg 1-10 tablet by ity of tablet 00:00: mouth [place] 00 every Medical morning Branch and evening. metoprolol 2022-0 Yes [id number] 50mg Take 1 Univers succinate 1-10 tablet [...] s: atrial fibrillati on furosemide 2022-0 Yes [id number] 40mg Take 1 Univers 40 mg 1-10 tablet by ity of tablet 00:00: mouth [place] 00 every Medical morning Branch and evening. metoprolol 2022-0 Yes [id number] 50mg Take 1 Univers succinate 1-10 tablet [...] s: atrial fibrillati on furosemide 2022-0 Yes [id number] 40mg Take 1 Univers 40 mg 1-10 tablet by ity of tablet 00:00: mouth [place] 00 every Medical morning Branch and evening. metoprolol 2022-0 Yes [id number] 50mg Take 1 Univers succinate 1-10 tablet [...] s: atrial fibrillati on furosemide 2022-0 Yes [id number] 40mg Take 1 Univers 40 mg 1-10 tablet by ity of tablet 00:00: mouth [place] 00 every Medical morning Branch and evening. apixaban 2022-0 Yes 1358 2.5mg Take 1 Univer s (ELIQUIS) 1-10 tablet by ity o f 2.5 mg 00:00: mouth 2 [place] tablet 00 (two) Medical times Branch daily. Indication s: atrial fibrillati on furosemide 2023-0 Yes [id number] 40mg Take 1 Univers 40 mg 1-10 tablet by ity of tablet 00:00: mouth [place] 00 every Medical morning Branch and evening. apixaban Yes 1358 2.5mg Take 1 Univer s (ELIQUIS) 1-10 tablet by ity o f 2.5 mg 00:00: mouth 2 [place] tablet 00 (two) Medical times Branch daily. Indication s: atrial fibrillati on metoprolol 202- No [id number] 50mg Take 1 Univers succinate 1-10 02-06 tablet by ity of XL 50 mg 24 00:00: 00:00 mouth 2 [place] hr tablet 00 :00 (two) Medical times Branch daily. insulin NPH Yes [id number] 20U inject 20 Univers 100 unit/mL 1-02 Units ity of injection 00:00: under the [place] 00 skin every Medical morning. Branch insulin NPH Yes [id number] 20U inject 20 Univers 100 unit/mL 1-02 Units ity of injection 00:00: under the [place] 00 skin every Medical morning. Branch insulin NPH Yes [id number] 20U inject 20 Univers 100 unit/mL 1-02 Units ity of injection 00:00: under the [place] 00 skin every Medical morning. Branch insulin NPH Yes [id number] 20U inject 20 Univers 100 unit/mL 1-02 Units ity of injection 00:00: under the [place] 00 skin every Medical morning. Branch insulin NPH Yes [id number] 20U inject 20 Univers 100 unit/mL 1-02 Units ity of injection 00:00: under the [place] 00 skin every Medical morning. Branch insulin NPH Yes [id number] 20U inject 20 Univers 100 unit/mL 1-02 Units ity of injection 00:00: under the [place] 00 skin every Medical morning. Branch insulin NPH Yes [id number] 20U inject 20 Univers 100 unit/mL 1-02 Units ity of injection 00:00: under the [place] 00 skin every Medical morning. Branch insulin NPH Yes [id number] 20U inject 20 Univers 100 unit/mL 1-02 Units ity of injection 00:00: under the [place] 00 skin every Medical morning. Branch insulin NPH 2022-0 Yes [id number] 20U inject 20 Univers 100 unit/mL 1-02 Units ity of injection 00:00: under the [place] 00 skin every Medical morning. Branch insulin NPH 2022-0 Yes [id number] 20U inject 20 Univers 100 unit/mL 1-02 Units ity of injection 00:00: under the [place] 00 skin every Medical morning. Branch insulin NPH 2022-0 Yes [id number] 20U inject 20 Univers 100 unit/mL 1-02 [...] 03:00: First dose [place] 00 on Sat [facility] 02/18/22 Branch at 2100, Until Discontinu ed, Routine insulin NPH 2022-0 Yes [id number] 15U inject 15 Univers 100 unit/mL 1-01 Units ity of injection 00:00: under the [place] 00 skin at Medical bedtime. Branch polyethylen 2022-0 Yes [id number] 17g Take 1 Univers e glycol 1- Packet by ity of 3350 17 00:00: mouth [place] gram powder 00 every 24 Medi sandra (twenty-fo Branch ur) hours as needed for Constipati on. insulin NPH 2022-0 Yes [id number] 15U inject 15 Univers 100 unit/mL 1-01 Units ity of injection 00:00: under the [place] 00 skin at Medical bedtime. Branch polyethylen 0 Yes [id number] 17g Take 1 Univers e glycol 1-01 Packet by ity of 3350 17 00:00: mouth [place] gram powder 00 every 24 Medi sandra (twenty-fo Branch ur) hours as needed for Constipati on. insulin NPH Yes [id number] 15U inject 15 Univers 100 unit/mL 1-01 Units ity of injection 00:00: under the [place] 00 skin at Medical bedtime. Branch polyethylen 0 Yes [id number] 17g Take 1 Univers e glycol 1-01 Packet by ity of 3350 17 00:00: mouth [place] gram powder 00 every 24 Medi sandra (twenty-fo Branch ur) hours as needed for Constipati on. insulin NPH Yes [id number] 15U inject 15 Univers 100 unit/mL 1-01 Units ity of injection 00:00: under the [place] 00 skin at Medical bedtime. Branch polyethylen 0 Yes [id number] 17g Take 1 Univers e glycol 1-01 Packet by ity of 3350 17 00:00: mouth [place] gram powder 00 every 24 Medi sandra (twenty-fo Branch ur) hours as needed for Constipati on. insulin NPH Yes [id number] 15U inject 15 Univers 100 unit/mL 1-01 Units ity of injection 00:00: under the [place] 00 skin at Medical bedtime. Branch polyethylen 0 Yes [id number] 17g Take 1 Univers e glycol 1-01 Packet by ity of 3350 17 00:00: mouth [place] gram powder 00 every 24 Medi sandra (twenty-fo Branch ur) hours as needed for Constipati on. insulin NPH Yes [id number] 15U inject 15 Univers 100 unit/mL 1-01 Units ity of injection 00:00: under the [place] 00 skin at Medical bedtime. Branch polyethylen 0 Yes [id number] 17g Take 1 Univers e glycol 1-01 Packet by ity of 3350 17 00:00: mouth [place] gram powder 00 every 24 Medi sandra (twenty-fo Branch ur) hours as needed for Constipati on. insulin NPH Yes [id number] 15U inject 15 Univers 100 unit/mL 1-01 Units ity of injection 00:00: under the [place] 00 skin at Medical bedtime. Branch polyethylen 2022-0 Yes [id number] 17g Take 1 Univers e glycol 1-01 Packet by ity of 3350 17 00:00: mouth [place] gram powder 00 every 24 Medi sandra (twenty-fo Branch ur) hours as needed for Constipati on. insulin NPH 2022-0 Yes [id number] 15U inject 15 Univers 100 unit/mL 1-01 Units ity of injection 00:00: under the [place] 00 skin at Medical bedtime. Branch polyethylen 2022-0 Yes [id number] 17g Take 1 Univers e glycol 1-01 Packet by ity of 3350 17 00:00: mouth [place] gram powder 00 every 24 Medi sandra (twenty-fo Branch ur) hours as needed for Constipati on. insulin NPH 2022-0 Yes [id number] 15U inject 15 Univers 100 unit/mL 1-01 Units ity of injection 00:00: under the [place] 00 skin at Medical bedtime. Branch polyethylen 2022-0 Yes [id number] 17g Take 1 Univers e glycol 1-01 Packet by ity of 3350 17 00:00: mouth [place] gram powder 00 every 24 Medi sandra (twenty-fo Branch ur) hours as needed for Constipati on. insulin NPH 2022-0 Yes [id number] 15U inject 15 Univers 100 unit/mL 1-01 Units ity of injection 00:00: under the [place] 00 skin at Medical bedtime. Branch polyethylen 2022-0 Yes [id number] 17g Take 1 Univers e glycol 1-01 Packet by ity of 3350 17 00:00: mouth [place] gram powder 00 every 24 Medi sandra (twenty-fo Branch ur) hours as needed for Constipati on. insulin NPH 2022-0 Yes [id number] 15U inject 15 Univers 100 unit/mL 1-01 Units ity of injection 00:00: under the [place] 00 skin at Medical bedtime. Branch polyethylen 2022-0 Yes [id number] 17g Take 1 Univers e glycol 1-01 Packet by ity of 3350 17 00:00: mouth [place] gram powder 00 every 24 Medi sandra (twenty-fo Branch ur) hours as needed for Constipati on. furosemide 2022- No [id number] 40mg Take 1 Univers 40 mg 02-19 tablet by ity of tablet 00:00: 05:59 mouth [place] 00 :00 every Medical morning Branch and evening for 30 days. furosemide 2022- No [id number] 40mg Take 1 Univers 40 mg 02-19 tablet by ity of tablet 00:00: 05:59 mouth [place] 00 :00 every Medical morning Branch and evening for 30 days. furosemide 2022- No [id number] 40mg Take 1 Univers 40 mg 02-19 tablet by ity of tablet 00:00: 00:00 mouth [place] 00 :00 every Medical morning Branch and evening for 30 days. furosemide 2022- No [id number] 40mg Take 1 Univers 40 mg 02-19 [...] Until Discontinu ed, Routine sulfur 2021-02- No [id number] 5mL 5 mL, Un araseli hexafluorid 02-17 9103 Intravenou i ty of e microsphr 15:00: 15:00 s, ONCE, 1 [place] (LUMASON) 00 :00 dose, On Medica l injection 5 Sun Branch mL 02/17/22 at 0900, Routine
manufacturing team member approving Restricted medication : KUMARSRIRAM polyethylen 2021-02 Yes 17g 17 g, Unive rs e glycol 2-30 Oral, ity of 3350 powder 05:09: [id number], [place] 17 g 36 Starting Medical on [place] Branch 02/16/22 at 2309, Until Discontinu ed, Routine, Constipati on phenytoin 2021-02 Yes 200mg 200 mg, Univ ers Extended 2-30 Oral, QHS, ity o f (DILANTIN 03:00: First dose [place] KAPSEAL) 00 on [facility] Medical capsule 200 02/16/22 Bran ch mg at 2100, Until Discontinu ed, Routine insulin NPH 2021-02 Yes 15U 15 Units, U nivers (HUMULIN N) 2-30 Subcutaneo it y of injection 03:00: [place], QHS, [place] 15 Units 00 First dose Medic al on [facility] Branch 02/16/22 at 2100, Until Discontinu ed, Routine atorvastati 2021-02 Yes 40mg 40 mg, Univ ers n (LIPITOR) 2-30 Oral, QHS, it y of tablet 40 03:00: First dose [place] mg 00 on [facility] 02/16/22 Branch at 2100, Until Discontinu ed, Routine levETIRAcet 2021-02 Yes 500mg 500 mg, Un araseli am (KEPPRA) 2-30 Oral, BID, it y of tablet 500 02:00: First dose [place] mg 00 on [facility] 02/16/22 Branch at 2000, Until Discontinu ed, Routine apixaban 2021-02 Yes 1358 5mg 5 mg, Univers (ELIQUIS) 2-30 Oral, BID, ity of tablet 5 mg 02:00: First dose [place] 00 on [facility] 02/16/22 Branch at 2000, Until Discontinu ed, Routine
Indicatio ns: Non-Valvul ar Atrial Fibrillati on furosemide 2021-02- No 40mg 40 mg, Univ ers (LASIX) 202-19 Slow IV ity of injection 02:00: 18:11 Push, [place] 40 mg 00 :42 Q12H, Medical First dose Branch on [facility] 02/16/22 at 2000, Until Discontinu ed, Routine metoprolol 2021-02- No 50mg 50 mg, Univ ers succinate 202-18 Oral, BID, ity of XL (TOPROL 02:00: 14:37 First dose [place] XL) tablet 00 :05 on [facility] Medical 50 mg 02/16/22 Branch at 2000, [...] Branch 02/16/22 at 1100, JACQUI semaglutide Yes [id number] .25mg inject Univers (OZEMPIC) 8-17 0.25 mg ity of 0.25 mg or 00:00: under the [place] 0.5 mg(2 00 skin Medical mg/1.5 mL) weekly. Branch PnIj semaglutide Yes [id number] .25mg inject Univers (OZEMPIC) 8-17 0.25 mg ity of 0.25 mg or 00:00: under the [place] 0.5 mg(2 00 skin Medical mg/1.5 mL) weekly. Branch PnIj semaglutide Yes [id number] .25mg inject Univers (OZEMPIC) 8-17 0.25 mg ity of 0.25 mg or 00:00: under the [place] 0.5 mg(2 00 skin Medical mg/1.5 mL) weekly. Branch PnIj semaglutide Yes [id number] .25mg inject Univers (OZEMPIC) 8-17 0.25 mg ity of 0.25 mg or 00:00: under the [place] 0.5 mg(2 00 skin Medical mg/1.5 mL) weekly. Branch PnIj semaglutide 0 Yes [id number] .25mg inject Univers (OZEMPIC) 8-17 0.25 mg ity of 0.25 mg or 00:00: under the [place] 0.5 mg(2 00 skin Medical mg/1.5 mL) weekly. Branch PnIj semaglutide 0 Yes [id number] .25mg inject Univers (OZEMPIC) 8-17 0.25 mg ity of 0.25 mg or 00:00: under the [place] 0.5 mg(2 00 skin Medical mg/1.5 mL) weekly. Branch PnIj semaglutide 0 Yes [id number] .25mg inject Univers (OZEMPIC) 8-17 0.25 mg ity of 0.25 mg or 00:00: under the [place] 0.5 mg(2 00 skin Medical mg/1.5 mL) weekly. Branch PnIj semaglutide Yes [id number] .25mg inject Univers (OZEMPIC) 8-17 0.25 mg ity of 0.25 mg or 00:00: under the [place] 0.5 mg(2 00 skin Medical mg/1.5 mL) weekly. Branch PnIj semaglutide Yes [id number] .25mg inject Univers (OZEMPIC) 8-17 0.25 mg ity of 0.25 mg or 00:00: under the [place] 0.5 mg(2 00 skin Medical mg/1.5 mL) weekly. Branch PnIj semaglutide Yes [id number] .25mg inject Univers (OZEMPIC) 8-17 0.25 mg ity of 0.25 mg or 00:00: under the [place] 0.5 mg(2 00 skin Medical mg/1.5 mL) weekly. Branch PnIj semaglutide 2021-0 Yes [id number] .25mg inject Univers (OZEMPIC) 8-17 0.25 mg ity of 0.25 mg or 00:00: under the [place] 0.5 mg(2 00 skin Medical mg/1.5 mL) weekly. Branch PnIj semaglutide Yes [id number] .25mg inject Univers (OZEMPIC) 8-17 0.25 mg ity of 0.25 mg or 00:00: under the [place] 0.5 mg(2 00 skin Medical mg/1.5 mL) weekly. Branch PnIj semaglutide 2021-0 Yes [id number] .25mg inject Univers (OZEMPIC) 8-17 0.25 mg ity of 0.25 mg or 00:00: under the [place] 0.5 mg(2 00 skin Medical mg/1.5 mL) weekly. Branch PnIj semaglutide 2021-0 Yes [id number] .25mg inject Univers (OZEMPIC) 8-17 0.25 mg [...] capsules in the evening. amLODIPine 2-0 Yes [id number] 10mg Take 1 U nivers 10 mg 6-13 tablet by ity of tablet 00:00: mouth [place] 00 daily. Medical Branch amLODIPine 2-0 Yes [id number] 10mg Take 1 U nivers 10 mg 6-13 tablet by ity of tablet 00:00: mouth [place] 00 daily. Medical Branch amLODIPine 2-0 Yes [id number] 10mg Take 1 U nivers 10 mg 6-13 tablet by ity of tablet 00:00: mouth [place] 00 daily. Medical Branch amLODIPine 2-0 Yes [id number] 10mg Take 1 U nivers 10 mg 6-13 tablet by ity of tablet 00:00: mouth [place] 00 daily. Medical Branch amLODIPine 2-0 Yes [id number] 10mg Take 1 U nivers 10 mg 6-13 tablet by ity of tablet 00:00: mouth [place] 00 daily. Medical Branch amLODIPine 2021-0 2022- No [id number] 10mg Take 1 Univers 10 mg 6-13 01-10 tablet by ity of tablet 00:00: 00:00 mouth [place] 00 :00 daily. Medical Branch amLODIPine 2021-0 2022- No [id number] 10mg Take 1 Univers 10 mg 6-13 [...] s: atrial fibrillati on OXCARBAZEPI 2-0 Yes [id number] TAKE 1 Univers [place] 150 mg 3-08 TABLET 2 X ity of tablet 00:00: A DAY FOR [place] 00 1 WEEK Medical THEN 2 Branch TABS 2X DAY FOR 1 WEEK 3 TABLES 2XADAY OXCARBAZEPI 2022-0 Yes [id number] TAKE 1 Univers [place] 150 mg 3-08 TABLET 2 X ity of tablet 00:00: A DAY FOR [place] 00 1 WEEK Medical THEN 2 Branch TABS 2X DAY FOR 1 WEEK 3 TABLES 2XADAY OXCARBAZEPI 2022-0 Yes [id number] TAKE 1 Univers [place] 150 mg 3-08 TABLET 2 X ity of tablet 00:00: A DAY FOR [place] 00 1 WEEK Medical THEN 2 Branch TABS 2X DAY FOR 1 WEEK 3 TABLES 2XADAY OXCARBAZEPI 2022-0 Yes [id number] TAKE 1 Univers [place] 150 mg 3-08 TABLET 2 X ity of tablet 00:00: A DAY FOR [place] 1 WEEK Medical THEN 2 Branch TABS 2X DAY FOR 1 WEEK 3 TABLES 2XADAY OXCARBAZEPI 2022-0 Yes [id number] TAKE 1 Univers [place] 150 mg 3-08 TABLET 2 X ity of tablet 00:00: A DAY FOR [place] 1 WEEK Medical THEN 2 Branch TABS 2X DAY FOR 1 WEEK 3 TABLES 2XADAY OXCARBAZEPI 2022-0 Yes [id number] TAKE 1 Univers [place] 150 mg 3-08 TABLET 2 X ity of tablet 00:00: A DAY FOR [place] 1 WEEK Medical THEN 2 Branch TABS 2X DAY FOR 1 WEEK 3 TABLES 2XADAY OXCARBAZEPI 2022-0 Yes [id number] TAKE 1 Univers NE 150 mg 3-08 TABLET 2 X ity of tablet 00:00: A DAY FOR [place] 00 1 WEEK Medical THEN 2 Branch TABS 2X DAY FOR 1 WEEK 3 TABLES 2XADAY OXCARBAZEPI 2022-0 Yes [id number] TAKE 1 Univers NE 150 mg 3-08 TABLET 2 X ity of tablet 00:00: A DAY FOR [place] 00 1 WEEK Medical THEN 2 Branch TABS 2X DAY FOR 1 WEEK 3 TABLES 2XADAY OXCARBAZEPI 2022-0 Yes [id number] TAKE 1 Univers NE 150 mg 3-08 TABLET 2 X ity of tablet 00:00: A DAY FOR [place] 00 1 WEEK Medical THEN 2 Branch TABS 2X DAY FOR 1 WEEK 3 TABLES 2XADAY OXCARBAZEPI 2022-0 Yes [id number] TAKE 1 Univers NE 150 mg 3-08 TABLET 2 X ity of tablet 00:00: A DAY FOR [place] 00 1 WEEK Medical THEN 2 Branch TABS 2X DAY FOR 1 WEEK 3 TABLES 2XADAY OXCARBAZEPI 2022-0 Yes [id number] TAKE 1 Univers NE 150 mg 3-08 TABLET 2 X ity of tablet 00:00: A DAY FOR [place] 1 WEEK Medical THEN 2 Branch TABS 2X DAY FOR 1 WEEK 3 TABLES 2XADAY OXCARBAZEPI 2022-0 Yes [id number] TAKE 1 [facility] NE 150 mg 3-08 TABLET 2 X ity of tablet 00:00: A DAY FOR [place] 1 WEEK Medical THEN 2 Branch TABS 2X DAY FOR 1 WEEK 3 TABLES 2XADAY OXCARBAZEPI 2022-0 Yes [id number] TAKE 1 [facility] [place] 150 mg 3-08 TABLET 2 X ity of tablet 00:00: A DAY FOR [place] 1 WEEK Medical THEN 2 Branch TABS 2X DAY FOR 1 WEEK 3 TABLES 2XADAY OXCARBAZEPI 2022-0 Yes [id number] TAKE 1 [facility] NE 150 mg 3-08 TABLET 2 X ity of tablet 00:00: A DAY FOR [place] 1 WEEK Medical THEN 2 Branch TABS [...] 6am and 6pm insulin NPH 0 Yes [id number] 10U inject Univers (NOVOLIN N 04-13 10-15 ity of NPH U-100 00:00: Units [place] INSULIN) 00 under the Medica l 100 unit/mL skin every Br anch injection evening. insulin NPH Yes [id number] 10U inject Univers (NOVOLIN N 04-13 10-15 ity of NPH U-100 00:00: Units [place] INSULIN) 00 under the Medica l 100 unit/mL skin every Br anch injection evening. insulin NPH Yes [id number] 10U inject Univers (NOVOLIN N 04-13 10-15 ity of NPH U-100 00:00: Units [place] INSULIN) 00 under the Medica l 100 unit/mL skin every Br anch injection evening. insulin NPH 2022- No [id number] 10U inject Univers (NOVOLIN N 04-13 10-15 ity of NPH U-100 00:00: 00:00 Units [place] INSULIN) 00 :00 under the Medica l 100 unit/mL skin every Br anch injection evening. furosemide 0 Yes [id number] 20mg Take 1 Univers 20 mg 1-27 tablet by ity of tablet 00:00: mouth 00 daily. Medical Branch levETIRAcet 2021-0 Yes [id number] 500mg Take 1 Univers am 500 mg 1-27 tablet by ity o f tablet 00:00: mouth 2 00 (two) Medical times Branch daily. furosemide 2021-0 Yes [id number] 20mg Take 1 Univers 20 mg 1-27 tablet by ity of tablet 00:00: mouth [place] 00 daily. Medical Branch levETIRAcet 2021-0 Yes [id number] 500mg Take 1 Univers am 500 mg 1-27 tablet by ity o f tablet 00:00: mouth 2 [place] 00 (two) Medical times Branch daily. furosemide 2022-0 Yes [id number] 20mg Take 1 Univers 20 mg 1-27 tablet by ity of tablet 00:00: mouth 00 daily. Medical Branch levETIRAcet 2021-0 Yes [id number] 500mg Take 1 Univers am 500 mg 1-27 tablet by ity o f tablet 00:00: mouth (two) Medical times Branch daily. levETIRAcet 2021-0 Yes [id number] 500mg Take 1 Univers am 500 mg 1-27 tablet by ity o f tablet 00:00: mouth (two) Medical times Branch daily. levETIRAcet 2021-0 Yes [id number] 500mg Take 1 Univers am 500 mg 1-27 tablet by ity o f tablet 00:00: mouth (two) Medical times Branch daily. levETIRAcet 2021-0 Yes [id number] 500mg Take 1 Univers am 500 mg 1-27 tablet by ity o f tablet 00:00: mouth (two) Medical times Branch daily. levETIRAcet 2021-0 Yes [id number] 500mg Take 1 Univers am 500 mg 1-27 tablet by ity o f tablet 00:00: mouth (two) Medical times Branch daily. levETIRAcet 2021-0 Yes [id number] 500mg Take 1 Univers am 500 mg 1-27 tablet by ity o f tablet 00:00: mouth (two) Medical times Branch daily. levETIRAcet 2021-0 Yes [id number] 500mg Take 1 Univers am 500 mg 1-27 tablet by ity o f tablet 00:00: mouth (two) Medical times Branch daily. levETIRAcet 2021-0 Yes [id number] 500mg Take 1 Univers am 500 mg 1-27 tablet by ity o f tablet 00:00: mouth (two) Medical times Branch daily. levETIRAcet 2-0 Yes [id number] 500mg Take 1 Univers am 500 mg 1-27 tablet by ity o f tablet 00:00: mouth (two) Medical times Branch daily. levETIRAcet 2-0 Yes [id number] 500mg Take 1 Univers am 500 mg 1-27 tablet by ity o f tablet 00:00: mouth 2 [place] 00 (two) Medical times Branch daily. levETIRAcet 2021-0 Yes [id number] 500mg Take 1 Univers am 500 mg 1-27 tablet by ity o f tablet 00:00: mouth (two) Medical times Branch daily. levETIRAcet 2021-0 Yes [id number] 500mg Take 1 Univers am 500 mg 1-27 tablet by ity o f tablet 00:00: mouth 2 (two) Medical times Branch daily. furosemide 2021-0 3- No [id number] 20mg Take 1 Univers 20 mg 1-27 02-19 tablet by ity of tablet 00:00: 00:00 mouth [place] 00 :00 daily. Medical Branch pantoprazol 0 Yes [id number] 40mg Take 1 Univers e 40 mg EC 1-21 tablet by ity of tablet 00:00: mouth 00 daily. Medical Branch pantoprazol 0 Yes [id number] 40mg Take 1 Univers e 40 mg EC 1-21 tablet by ity of tablet 00:00: mouth 00 daily. Medical Branch pantoprazol 0 Yes [id number] 40mg Take 1 Univers e 40 mg EC 1-21 tablet by ity of tablet 00:00: mouth 00 daily. Medical Branch pantoprazol 2021-0 Yes [id number] 40mg Take 1 Univers e 40 mg EC 1-21 tablet by ity of tablet 00:00: mouth [place] 00 daily. Medical Branch pantoprazol 2021-0 Yes [id number] 40mg Take 1 Univers e 40 mg EC 1-21 tablet by ity of tablet 00:00: mouth 00 daily. Medical Branch pantoprazol 2021-0 Yes [id number] 40mg Take 1 Univers e 40 mg EC 1-21 tablet by ity of tablet 00:00: mouth [place] 00 daily. Medical Branch pantoprazol 2021-0 Yes [id number] 40mg Take 1 Univers e 40 mg EC 1-21 tablet by ity of tablet 00:00: mouth [place] 00 daily. Medical Branch pantoprazol 2021-0 Yes [id number] 40mg Take 1 Univers e 40 mg EC 1-21 tablet by ity of tablet 00:00: mouth [place] 00 daily. Medical Branch pantoprazol 2021-0 Yes [id number] 40mg Take 1 Univers e 40 mg EC 1-21 tablet by ity of tablet 00:00: mouth [place] 00 daily. Medical Branch pantoprazol Yes [id number] 40mg Take 1 Univers e 40 mg EC 1-21 tablet by ity of tablet 00:00: mouth [place] 00 daily. Medical Branch pantoprazol Yes [id number] 40mg Take 1 Univers e 40 mg EC 1-21 tablet by ity of tablet 00:00: mouth [place] 00 daily. Medical Branch pantoprazol Yes [id number] 40mg Take 1 Univers e 40 mg EC 1-21 tablet by ity of tablet 00:00: mouth [place] 00 daily. Medical Branch pantoprazol Yes [id number] 40mg Take 1 Univers e 40 mg EC 1-21 tablet by ity of tablet 00:00: mouth [place] 00 daily. Medical Branch pantoprazol Yes [id number] 40mg Take 1 Univers e 40 mg EC 1-21 tablet by ity of tablet 00:00: mouth [place] 00 daily. Medical Branch atorvastati 2020-02 Yes [id number] 40mg Take 1 Univers n 40 mg 2-14 tablet by ity of tablet 00:00: mouth at [place] 00 bedtime. Medical Branch insulin 2020-02 Yes 8U inject 8 Univer s regular 2-14 Units ity of human 00:00: under the [place] (NOVOLIN R 00 skin Medical REGULAR daily. Branch U-100 Daily at [facility]) 100 noon unit/mL injection atorvastati 2020-02 Yes [id number] 40mg Take 1 Univers n 40 mg 2-14 tablet by ity of tablet 00:00: mouth at [place] 00 bedtime. Medical Branch insulin 2020-02 Yes 8U inject 8 Univer s regular 2-14 Units ity of human 00:00: under the [place] (NOVOLIN R 00 skin Medical REGULAR daily. Branch U-100 Daily at [facility]) 100 noon unit/mL injection atorvastati 2020-02 Yes [id number] 40mg Take 1 Univers n 40 mg 2-14 tablet by ity of tablet 00:00: mouth at [place] 00 bedtime. Medical Branch insulin 2020-02 Yes 8U inject 8 Univer s regular 2-14 Units ity of human 00:00: under the [place] (NOVOLIN R 00 skin Medical REGULAR daily. Branch U-100 Daily at [facility]) 100 noon unit/mL injection atorvastati 2020-02 Yes [id number] 40mg Take 1 Univers n 40 mg 2-14 tablet by ity of tablet 00:00: mouth at [place] [address] bedtime. Medical Branch atorvastati 2020-02 Yes [id number] 40mg Take 1 Univers n 40 mg 2-14 tablet by ity of tablet 00:00: mouth at [place] [address] bedtime. Medical Branch atorvastati 2020-02 Yes [id number] 40mg Take 1 Univers n 40 mg 2-14 tablet by ity of tablet 00:00: mouth at [place] [address] bedtime. Medical Branch atorvastati 2020-02 Yes [id number] 40mg Take 1 Univers n 40 mg 2-14 tablet by ity of tablet 00:00: mouth at [place] [address] bedtime. Medical Branch atorvastati 2020-02 Yes [id number] 40mg Take 1 Univers n 40 mg 2-14 tablet by ity of tablet 00:00: mouth at [place] [address] bedtime. Medical Branch atorvastati 2020-02 Yes [id number] 40mg Take 1 Univers n 40 mg 2-14 tablet by ity of tablet 00:00: mouth at [place] [address] bedtime. Medical Branch atorvastati 2020-02 Yes [id number] 40mg Take 1 Univers n 40 mg 2-14 tablet by ity of tablet 00:00: mouth at [place] [address] bedtime. Medical Branch atorvastati 2020-02 Yes [id number] 40mg Take 1 Univers n 40 mg 2-14 tablet by ity of tablet 00:00: mouth at [place] [address] bedtime. Medical Branch atorvastati 2020-02 Yes [id number] 40mg Take 1 Univers n 40 mg 2-14 tablet by ity of tablet 00:00: mouth at [place] [address] bedtime. Medical Branch atorvastati 2020-02 Yes [id number] 40mg Take 1 Univers n 40 mg 2-14 tablet by ity of tablet 00:00: mouth at [place] [address] bedtime. Medical Branch atorvastati 2020-02 Yes [id number] 40mg Take 1 Univers n 40 mg 2-14 tablet by ity of tablet 00:00: mouth at [place] [address] bedtime. Medical Branch insulin 2020-023- No 8U inject 8 Unive rs regular 2-14 02-19 Units ity of human 00:00: 00:00 under the [place] (NOVOLIN R 00 :00 skin Medical REGULAR daily. Branch U-100 Daily at [facility]) 100 noon unit/mL injection Blood-Gluco [...] 2020-12-03 Completed University o f Polysaccharide, 00:00:00 [place] Med ical PPSV23 (PNEUMOVAX) Branch Influenza Virus [...] Completed Universit y of Conjugate, PCV13 00:00:00 [facility] dical (Prevnar 13) Branch Pneumococcal 13 2019-12-19 Completed Universit y of Conjugate, PCV13 00:00:00 [facility] dical (Prevnar 13) Branch Pneumococcal 13 2019-12-19 Completed Universit y of Conjugate, PCV13 00:00:00 [facility] dical (Prevnar 13) Branch Pneumococcal 13 2019-12-19 Completed Universit y of Conjugate, PCV13 00:00:00 [facility] dical (Prevnar 13) Branch Pneumococcal 13 2019-12-19 Completed Universit y of Conjugate, PCV13 00:00:00 [facility] dical (Prevnar 13) Branch Pneumococcal 13 2019-12-19 Completed Universit y of Conjugate, PCV13 00:00:00 [facility] dical (Prevnar 13) Branch Pneumococcal 13 [...] Universit y of Conjugate, PCV13 00:00:00 [place] dical (Prevnar 13) Branch Pneumococcal 13 2019-12-19 Completed Universit y of Conjugate, PCV13 00:00:00 [facility] dical (Prevnar 13) Branch Pneumococcal 13 2019-12-19 Completed Universit y of Conjugate, PCV13 00:00:00 [facility] dical (Prevnar 13) Branch Influenza Virus [...] Dosage 2018-03-25 Completed Unive rsity of 00:00:00 [place] [facility] HEP B, Adult Dosage 2018-03-25 Completed Unive rsity of 00:00:00 [facility] Branch HEP B, Adult Dosage 2018-03-25 Completed Unive rsity of 00:00:00 [facility] Branch HEP B, Adult Dosage 2018-03-25 Completed Unive rsity of 00:00:00 [place] [facility] HEP B, Adult Dosage 2018-03-25 Completed Unive rsity of 00:00:00 [place] [facility] HEP B, Adult Dosage 2018-03-25 Completed Unive rsity of 00:00:00 [place] [facility] HEP B, Adult Dosage 2018-03-25 Completed Unive rsity of 00:00:00 [place] [facility] HEP B, Adult Dosage 2018-03-25 Completed Unive rsity of 00:00:00 [facility] Branch HEP B, Adult Dosage 2018-03-25 Completed Unive rsity of 00:00:00 [place] [facility] HEP B, Adult Dosage 2018-03-25 [...] Dosage 2017-09-05 Completed Unive rsity of 00:00:00 [place] [facility] HEP B, Adult Dosage 2017-09-05 Completed Unive rsity of 00:00:00 [place] [facility] HEP B, Adult Dosage 2017-09-05 Completed Unive rsity of 00:00:00 [place] [facility] HEP B, Adult Dosage 2017-09-05 Completed Unive rsity of 00:00:00 [place] [facility] HEP B, Adult Dosage 2017-09-05 Completed Unive rsity of 00:00:00 [place] [facility] HEP B, Adult Dosage 2017-09-05 Completed Unive rsity of 00:00:00 [place] [facility] HEP B, Adult Dosage 2017-09-05 Completed Unive rsity of 00:00:00 [place] [facility] HEP B, Adult Dosage 2017-09-05 Completed Unive rsity of 00:00:00 [place] [facility] HEP B, Adult Dosage 2017-09-05 Completed Unive rsity of 00:00:00 [place] [facility] HEP B, Adult Dosage 2017-09-05 Completed Unive rsity of 00:00:00 [place] [facility] HEP B, Adult Dosage 2017-09-05 Completed Unive rsity of 00:00:00 [place] [facility] HEP B, Adult Dosage 2017-09-05 Completed Unive rsity of 00:00:00 [facility] Pneumococcal 13 2015-02-19 Completed [...] ical PPSV23 (PNEUMOVAX) Branch Pneumococcal 2011-02-19 Completed [facility] Polysaccharide, 00:00:00 [place] Med ical PPSV23 (PNEUMOVAX) Branch Pneumococcal 2011-02-19 Completed [facility] Polysaccharide, 00:00:00 [place] Med ical PPSV23 (PNEUMOVAX) Branch Vital Signs Vital Name Observation Time Observation Value Comments Source Systolic blood 2022-03-16 14:28:00 128 mm[Hg] Univer sity of pressure [facility] Diastolic blood 2022-03-16 14:28:00 70 mm[Hg] Unive rsity of [facility] Heart rate 2022-03-16 14:28:00 93 /min [facility] Body temperature 2022-03-16 14:28:00 35.67 Lizz [facility] Respiratory rate 2022-03-16 14:28:00 17 /min [facility] Body weight 2022-03-16 14:28:00 81.058 kg [facility] BMI 2022-03-16 14:28:00 34.90 kg/m2 [facility] Oxygen saturation in 2022-03-16 14:28:00 98 /min [facility] Arterial blood by [facility] Pulse oximetry Branch Systolic blood 2022-03-14 19:37:00 138 mm[Hg] Univer sity of pressure [facility] Diastolic blood 2022-03-14 19:37:00 87 mm[Hg] Unive rsity of pressure [facility] Heart rate 2022-03-14 19:37:00 94 /min [facility] Respiratory rate 2022-03-14 19:37:00 20 /min [facility] Body height 2022-03-14 19:37:00 152.4 cm [facility] Body weight 2022-03-14 19:37:00 80.74 kg [facility] BMI 2022-03-14 19:37:00 34.76 kg/m2 [facility]i ty [facility] [place] [facility] Oxygen saturation in 2022-03-14 19:37:00 99 /min University of Arterial blood by [facility] Pulse oximetry Branch Systolic blood 2022-02-28 14:57:00 130 mm[Hg] Univer sity of pressure [place] [facility] Diastolic blood 2022-02-28 14:57:00 83 mm[Hg] Unive rsity of pressure [place] [facility] Heart rate 2022-02-28 14:57:00 117 /min [facility]i ty [facility] [place] [facility] Respiratory rate 2022-02-28 14:57:00 20 /min Univ ersity of [place] [facility] Body height 2022-02-28 14:57:00 152.4 cm Universi ty of [place] [facility] Body weight 2022-02-28 14:57:00 80.377 kg [facility]i ty [facility] [place] [facility] BMI 2022-02-28 14:57:00 34.61 kg/m2 [facility] ty [facility] [place] [facility] Oxygen saturation in 2022-02-28 14:57:00 99 /min University of Arterial blood by [facility] Pulse oximetry Branch Systolic blood 2022-02-19 17:58:00 140 mm[Hg] Univer sity of pressure [place] [facility] Diastolic blood 2022-02-19 17:58:00 95 mm[Hg] Unive rsity of pressure [place] [facility] Heart rate 2022-02-19 17:58:00 115 /min [facility]i ty of [place] [facility] Body temperature 2022-02-19 13:46:00 36.78 Lizz Univ ersity of [place] [facility] Respiratory rate 2022-02-19 13:46:00 18 /min Univ ersity of [place] [facility] Oxygen saturation in 2022-02-19 13:46:00 94 /min University of Arterial blood by [facility] Pulse oximetry Branch Body weight 2022-02-18 10:44:00 83.462 kg Universi ty [facility] [place] [facility] BMI 2022-02-18 10:44:00 35.94 kg/m2 [facility] [place] [facility] Systolic blood 2022-02-16 16:07:00 116 mm[Hg] Univer sity of pressure [place] [facility] Diastolic blood 2022-02-16 16:07:00 71 mm[Hg] Unive rsity of pressure [place] [facility] Heart rate 2022-02-16 16:07:00 85 /min [facility] Body temperature 2022-02-16 16:07:00 36.89 Lizz [facility] Respiratory rate 2022-02-16 16:07:00 17 /min [facility] Body weight 2022-02-16 16:07:00 84.823 kg [facility] BMI 2022-02-16 16:07:00 36.52 kg/m2 [facility] Oxygen saturation in 2022-02-16 16:07:00 96 /min [facility] Arterial blood by [facility] Pulse oximetry [place] Systolic blood 2021-10-05 15:13:00 152 mm[Hg] Univer sity [facility] Diastolic blood 2021-10-05 15:13:00 77 mm[Hg] Unive [facility] Body height 2021-10-05 15:12:00 152.4 cm [facility] Body weight 2021-10-05 15:12:00 88.315 kg [facility] BMI 2021-10-05 15:12:00 38.02 kg/m2 [facility] Procedures Procedure Date / Time Performing Clinician Source Performed AUTHORIZATION FOR RELEASE 2022-03-23 06:01:00 Doctor Unassigned, [facility] [place] [facility] FLU 2022-03-16 14:43:42 Kia [facility] VACC([id number]),65+YR,0.5 Medica l Branch ML,IM,ADJUVANTED,QUAD(FLU AD) POCT GLUCOSE (AUTOMATED) 2022-02-19 17:59:00 Brii Samson [facility] XR CHEST 2 VW 2022-02-19 16:23:57 Sriram Heath [facility] POCT GLUCOSE (AUTOMATED) 2022-02-19 13:45:00 Brii Samson [facility] MAGNESIUM 2022-02-19 12:23:00 Rocael Vaughan [facility] BASIC METABOLIC PANEL 2022-02-19 12:23:00 Rocael Vaughan [facility] (NA, K, CL, CO2, GLUCOSE, Medica l Branch BUN, CREATININE, CA) CBC WITH DIFF 2022-02-19 12:23:00 Rocael Vaughan [facility] N-TERMINAL PRO-BNP 2022-02-19 12:23:00 Rocael Vaughan [facility] POCT GLUCOSE (AUTOMATED) 2022-02-19 07:07:00 Brii Samson [facility] POCT GLUCOSE (AUTOMATED) 2022-02-19 06:10:00 OvMarcie youngi [facility] POCT GLUCOSE (AUTOMATED) 2022-02-19 03:34:00 OvBrii young [facility] POCT GLUCOSE (AUTOMATED) 2022-02-18 23:14:00 Brii Samson [facility] POCT GLUCOSE (AUTOMATED) 2022-02-18 17:29:00 Brii Samson [facility] POCT GLUCOSE (AUTOMATED) 2022-02-18 13:40:00 Marcie Samsoni [facility] BASIC METABOLIC PANEL 2022-02-18 10:53:00 Rocael Vaughan [facility] (NA, K, CL, CO2, GLUCOSE, Medica l Branch BUN, CREATININE, CA) LIPID PANEL ([id number])(TOTAL 2022-02-18 10:53:00 [facility] CHOLESTEROL, Medical Branch TRIGLYCERIDES, HDL) CBC WITH DIFF 2022-02-18 10:53:00 Rocael Vaughan [facility] N-TERMINAL PRO-BNP 2022-02-18 10:53:00 Rocael Vaughan [facility] POCT GLUCOSE (AUTOMATED) 2022-02-18 02:34:00 Brii Samson [facility] POCT GLUCOSE (AUTOMATED) 2022-02-17 22:16:00 Marcie Samsoni [facility] POCT GLUCOSE (AUTOMATED) 2022-02-17 17:45:00 OvBrii young [facility] POCT GLUCOSE (AUTOMATED) 2022-02-17 14:01:00 [facility] 2022-02-17 13:56:[address] [facility] COMPLETE W/ CONTRAST Medical Bra nch MAGNESIUM 2022-02-17 09:47:00 Chapin [facility] BASIC METABOLIC PANEL 2022-02-17 09:47:[address] [facility] (NA, K, CL, CO2, GLUCOSE, Medica l Branch BUN, CREATININE, CA) N-TERMINAL PRO-BNP 2022-02-17 09:47:00 Chapin [facility] POCT GLUCOSE (AUTOMATED) 2022-02-17 03:55:00 Chapin [facility] POCT GLUCOSE (AUTOMATED) 2022-02-17 03:16:00 Chapin [facility] URINALYSIS 2022-02-16 18:07:[address] [facility] XR CHEST 1 VW 2022-02-16 17:06:[address] [facility] [address] [facility] LIPASE 2022-02-16 16:59:[address] [facility] [address] [facility] TROPONIN I 2022-02-16 16:59:[address] [facility] [address] [facility] HEPATIC FUNCTION PANEL 2022-02-16 16:59:00 Bird [facility] ([id number]) (ALB,T.PRO,BILI [facility] T,BU/BC,ALT,AST,ALK PHOS) BASIC METABOLIC PANEL 2022-02-16 16:59:00 Bird [facility] (NA, K, CL, CO2, GLUCOSE, Medica l Branch BUN, CREATININE, CA) CBC WITH DIFF 2022-02-16 16:59:[address] [facility] [address] [facility] GLYCOSYLATED HEMOGLOBIN 2022-02-16 16:59:00 Chapin [facility] (A1C) [facility] N-TERMINAL PRO-BNP 2022-02-16 16:59:00 Marina Pang [facility] COVID-19 (ID NOW RAPID 2022-02-16 16:59:[address] [facility] TESTING) Medical Branch LAB ONLY COVID 2022-02-16 16:59:00 Marina Pang [facility] [place] INTERPRETATION [facility] HB ECG ROUTINE & RHYTHM 2022-02-16 16:52:36 Marina Pang [facility] CONSENT/REFUSAL FOR 2022-02-16 16:40:37 Doctor Unassigned, [facility] DIAGNOSIS AND TREATMENT [place] [facility] POCT HEMOGLOBIN A1C TEST 2021-10-05 15:15:00 Amita Gomez [facility] Encounters Start End Encounter Admission Attending Care Care Encounter Source Date/Time Date/Time Type Type Clinicians Facility Department ID 2022-06-14 Outpatient Lamb, STLMLC [facility] [id number] Common 12:46:01 Elaine [id number] [facility] 2022-06-02 Outpatient Lamb, [facility]LMLC [facility] [id number] Common 14:48:01 Elaine [id number] [facility] 2020-12-17 Emergency [facility] [id number] Univers 21:39:43 [facility] 2020-12-17 [facility] [id number] Univers 18:26:55 alvino BARAKAT [facility] 2020-12-17 Emergency [facility] [id number] Univers 16:06:[facility] [facility] 2022-06-15 2022-06-15 Outpatient Moustapha ADAM [facility] [id number] Univers 09:00:00 09:00:[address] [facility] 2022-04-27 2022-04-27 Outpatient Moustapha HEATH [facility] [id number] Univers 10:20:00 10:20:00 SRIRAM grove [facility] 2022-03-27 2022-03-27 Refill Kumar [facility] 1.2.840.114 [id number] Univers 00:00:00 00:00:00 Qiachaim PALOMO 350.1.13.10 it[facility] [place] [id number] Ok dical NAL 059 [facility] 2022-03-23 2022-03-23 Orders Doctor YANA 1.2.840.114 [id number] Univers 00:00:00 00:00:00 Only Unassigned, CARLOS 350.1.13.10 ity of [facility] 4.2.7.2.686 Bernabe as [phone] [address] 2022-03-22 2022-03-22 Digital Media Coordinator 2, Adc Lab [facility] 1.2.840.114 [id number] Univers 08:00:00 08:15:00 Visit Silverio Adam 350.1.13.10 ity of [facility] 4.2.7.2.[place] [phone] Ok dical NAL 353 [facility] 2022-03-22 2022-03-22 Outpatient [facility] [id number] Univers 08:00:00 08:00:00 SILVERIO ity of [facility] 2022-03-16 2022-03-16 Outpatient R [facility] [id number] Univers 08:40:00 09:58:33 SILVERIO ity [facility] 2022-03-16 2022-03-16 Office [facility] 1.2.840.114 [id number] Univers 08:40:00 09:00:00 Visit Silverio PALOMO 350.1.13.10 i ty of [facility] 4.2.7.2.[place] [id number] Ok dical NAL 059 [facility] 2022-03-14 2022-03-14 Office [facility] 1.2.840.114 [id number] Univers 13:40:00 14:00:00 Visit Sriram PALOMO 350.1.13.10 ity of [facility] 4.2.7[place]2.[place] [id number] Ok dical NAL 059 [facility] 2022-03-142022-03-14 Outpatient R KUMAR, [facility] [id number] Univers 13:40:00 13:40:00 SRIRAM de oliveira o f [facility] 2022-03-09 2022-03-09 Outpatient R KIA, [facility] [id number] Univers 09:59:09 23:59:00 SILVERIO ity of [facility] 2022-02-28 2022-02-28 Outpatient R KUMAR, [facility] [id number] Univers 09:00:00 09:16:53 SRIRAM de oliveira o f [facility] 2022-02-28 2022-02-28 [facility] 1.2.840.114 [id number] Univers 09:00:00 09:16:53 Visit Sriram [place] 350.1.13.10 ity of [place].2.[place] [id number] [facility] [address] [facility] 2022-02-21 2022-02-21 Transition JONO Galvan 1.2.840.114 [id number] Univers 00:00:00 00:00:00 of Care Nara MG 350.1.13.10 it y of [place].2.7.2.[place] [phone] [facility] [address] 2022-02-16 2022-02-19 Inpatient X CHAPIN [facility] SAMI [id number] Univers 10:48:00 16:07:00 BRII ity of [facility] 2022-02-16 2022-02-19 [facility] Stephen PangeLeilani [facility] 1.2.840.11 [id number] Univers 10:48:00 16:07:00 Encounter Marcie Samsonkhadar [place] 350.1.13.10 it[place] of [place].2.7.2.[place] [id number] [facility] [address] 2022-02-16 2022-02-16 Fang Govea [facility] 1.2.840.114 [id number] Univers 09:45:00 10:05:00 Care Unknown, Attending HEALTH 350.1.13.10 ity of [place] 4.2.7.2.686 Bernabe as HUMPHREY?BLEA [id number] [facility] [address] MEDICAL OFFICE BUILDING 2022-02-16 2022-02-16 Outpatient R CASSI [facility] [id number] Univers 09:45:00 09:45:00 FANG de oliveira [facility] 2022-01-31 2022-01-31 Outpatient R KUMAR, [facility] [id number] Univers 14:20:00 14:20:00 SRIRAM grove [facility] 2022-01-31 2022-01-31 Outpatient R KUMAR, [facility] [id number] Univers 14:20:00 14:20:00 SRIRAM de oliveira o maine [facility] 2021-12-02 2021-12-02 Outpatient R KIA [facility] [id number] Univers 10:20:00 10:20:00 [facility] 2021-11-25 2021-11-25 Outpatient R KIA [facility] [id number] Univers 10:20:00 10:20:00 [facility] 2021-11-25 2021-11-25 Outpatient R KIA [facility] [id number] Univers 10:20:00 10:20:00 [facility] 2021-10-05 2021-10-05 Outpatient R AMITA GOMEZ [facility] [id number] Univers 10:30:00 11:22:[address] [facility] 2021-10-05 2021-10-05 Office Amita Gomez [facility] 1.2.840.114 [id number] Univers 10:30:00 11:22:11 Visit HEALTH 350.1.13.10 it y of [place] 4.2.7.2.686 Bernabe as HUMPHREY?BLEA [phone] [facility] [address] MEDICAL OFFICE BUILDING 2021-09-21 2021-09-21 [facility] 1.2.212.944 [id number] Univers 00:00:00 00:00:00 Wentong HEALTH 350.1.13.10 it y of [place] 4.2.7.2.686 Bernabe as HUMPHREY?BLEA [phone] Ok dical KNEY [address] MEDICAL OFFICE BUILDING 2021-08-19 2021-08-19 Outpatient R SEWANI, [facility] [id number] Univers 11:20:00 11:20:[address] [facility] 2021-08-16 2021-08-16 Outpatient R CASTLE, [facility] [id number] Univers 13:00:00 13:00:[address] [facility] 2021-08-01 2021-08-01 Office Kumar, [facility] 1.2.840.114 [id number] Univers 13:40:00 14:02:37 Visit Sriram [place] 350.1.13.10 ity jarek [place].2.[place] [id number] [address] 2021-08-01 2021-08-01 Outpatient R KUMAR, [facility] [id number] Univers 13:40:00 14:02:37 QIACHAIM ity o [facility] 2021-08-01 2021-08-01 Outpatient R KUMAR, [facility] [id number] Univers 13:40:00 13:40:00 QIANGJUN ity o [facility] 2021-08-01 2021-08-01 Outpatient R KUMAR, [facility] [id number] Univers 13:40:00 13:40:00 QIANGJUN ity o [facility] 2021-08-01 2021-08-01 Outpatient R KUMAR, [facility] [id number] Univers 13:40:00 13:40:00 QIANGJUN ity o [facility] 2021-08-01 2021-08-01 Outpatient R KUMAR, [facility] [id number] Univers 13:40:00 13:40:00 QIANGJUN ity o [facility] 2021-07-22 2021-07-22 Refill Kumar, [facility] 1.2.840.114 [id number] Univers 00:00:00 00:00:00 Sriram PALOMO 350.1.13.10 ity jarek [place].2.[place] [id number] Ok dic[address] 2021-06-24 2021-06-24 Outpatient R KIA [facility] [id number] Univers 10:00:00 10:46:29 [facility] 2021-06-24 2021-06-24 [facility] 1.2.840.114 [id number] Univers 10:00:00 10:20:00 Visit Silverio PALOMO 350.1.13.10 i ty of [place] 4.2.7.2.686 Bernabelauryn CALIXTOMANUELA [phone] [address] 2021-06-24 2021-06-24 Outpatient R KIA [facility] [id number] Univers 10:00:00 10:00:00 [facility] 2021-06-24 2021-06-24 Out[facility] [id number] Univers 10:00:00 10:00:00 [facility] 2021-06-10 2021-06-10 Outpatient R KIA [facility] [id number] Univers 10:46:49 23:59:00 [facility] 2021-05-23 2021-05-23 Outpatient R KUMAR, [facility] [id number] Univers 15:00:00 15:00:00 SRIRAM diamond [facility] 2021-05-04 2021-05-04 Outpatient R KUMAR, [facility] [id number] Univers 08:00:00 23:59:00 SRIRAM de oliveira o [facility] 2021-05-04 2021-05-04 Outpatient R KUMAR, [facility] [id number] Univers 08:00:00 08:00:00 SRIRAM de oliveira o [facility] 2021-04-28 2021-04-28 Outpatient R BROOKS [facility] [id number] Univers 13:00:00 14:03:[address] [facility] 2021-04-28 2021-04-28 Office [facility] .2.944.644 [id number] Univers 13:00:00 14:03:10 Visit Diann DEWEY 350.1.13.10 i ty [facility] 4.2.7.2.[place] [facility] [id number] Ok dical NAL [address] [facility] 2021-04-22 2021-04-22 Outpatient Moustapha TRIMBLEShweta MITCHELL [facility] [id number] Univers 15:40:00 15:40:00 MITCHELL GARCIA klesie [facility] 2021-04-22 2021-04-22 Outpatient Moustapha JOSEMITCHELL Rock [facility] [id number] Univers 15:40:00 15:40:00 MITCHELL GARCIA kelsie [facility] 2021-04-22 2021-04-22 Outpatient Moustapha JOSEMITCHELL Rock [facility] [id number] Univers 15:40:00 15:40:[address] [facility] 2021-04-18 2021-04-19 Emergency X [facility] ERT [id number] Univers 22:42:00 02:27:00 BERNIEUSHO ity [facility] 2021-04-18 2021-04-19 Emergency [facility] 1.2.840.114 [id number] Univers 22:42:00 02:27:00 Celia PALOMO 350.1.13.10 ity [facility] [place].2.7.2.[place] [id number] [facility] [address] 2021-04-18 2021-04-19 [facility] [id number] Univers 22:42:00 02:27:00 FOLUSHO ity [facility] 2021-04-18 2021-04-18 Orders Doctor MILLAN 1.2.840.114 [id number] Univers 00:00:00 00:00:00 Only Unassigned, CARLOS 350.1.13.10 ity of [place] [facility] 4.2.7.2.686 Bernabe as [phone] [facility] [address] 2021-04-15 2021-04-15 [facility] 1.2.309.589 [id number] Univers 12:42:22 23:59:00 Encounter Clare PALOMO 350.1.13.10 ity of [place] 4.2.7.2.686 [place] [id number] [facility] [address] 2021-04-15 2021-04-15 Outpatient R KUMAR [facility] [id number] Univers 10:00:00 10:33:44 SRIRAM ity o f [facility] 2021-04-15 2021-04-15 Office Kumar, [facility] 1.2.840.114 [id number] Univers 10:00:00 10:33:44 Visit Sriram [place] 350.1.13.10 ity [facility] 4.2.7.2.[place] [facility] [id number] Ok dical NAL [address] BUILDING 2021-04-15 2021-04-15 Outpatient R KUMAR [facility] [id number] Univers 10:00:00 10:33:44 SRIRAM de oliveira o [facility] 2021-04-15 2021-04-15 Outpatient R MAJOR [facility] [id number] Univers 00:00:00 00:00:00 WONDIFUL martyy o f [facility] 2021-04-15 2021-04-15 Orders Doctor MILLAN 1.2.840.114 [id number] Univers 00:00:00 00:00:00 Only Unassigned, CARLOS 350.1.13.10 [facility] 4.2.7.2.686 Bernabe as [id number] [facility] [address] 2021-04-13 2021-04-13 Outpatient R TIN [facility] [id number] Univers 10:00:00 11:12:56 [facility] 2021-04-13 2021-04-13 Office Tin, [facility] 1.2.840.114 [id number] Univers 10:00:00 11:12:56 Visit [facility] 350.1.13.10 it y of [place] 4.2.7.2.686 Bernabe as HUMPHREY?BLEA [id number] Ok dical KNEY [address] MEDICAL OFFICE BUILDING 2021-04-13 2021-04-13 Outpatient R TIN [facility] [id number] Univers 10:00:00 11:12:56 WENTONG ity [facility] 2021-04-13 2021-04-13 Outpatient R CASTLE [facility] [id number] Univers 10:00:00 10:00:00 WENTONG ity of [facility] 2021-04-13 2021-04-13 Outpatient R TIN [facility] [id number] Univers 10:00:00 10:00:00 WENTONG ity of [facility] 2021-04-13 2021-04-13 Outpatient R CASTLE [facility] [id number] Univers 10:00:00 10:00:00 WENTONG ity [facility] 2021-04-12 2021-04-12 Nurse YANA Sanders 1.2.481.398 [id number] Univers 00:00:00 00:00:00 Triage Luis Alberto CARLOS 350.1.13.10 it y of [facility] 4.2.7.2.686 Bernabe as [id number] [address] 2021-04-07 2021-04-07 [facility]phone [facility] 1.2.533.487 [id number] Univers 00:00:00 00:00:00 Sriram [place] 350.1.13.10 ity of [place] 4.2.7.2.[place] [phone] Ok dical NAL [address] [place] [address] 2021-04-01 2021-04-01 Outpatient R KIA [facility] [id number] Univers 10:00:00 10:40:52 SILVERIO ity [facility] 2021-04-01 2021-04-01 Office [facility] 1.2.840.114 [id number] Univers 10:00:00 10:40:52 Visit Silverio [place] 350.1.13.10 i ty of [place] 4.2.7.2.[place] [id number] Ok dical NAL [address] [place] [address] 2021-03-30 2021-03-30 Telephone [facility] 1.2.840.114 [id number] Univers 00:00:00 00:00:00 [facility] 350.1.13.10 ity of [place] 4.2.7.2.686 Bernabe as HUMPHREY?BLEA [id number] Me dical [address] OFFICE [facility] 2021-03-30 2021-03-30 Telephone Jose [facility] 1.2.840.114 [id number] Univers 00:00:00 00:00:00 [facility] 350.1.13.10 ity [facility] 4.2.7.2.686 Bernabe as HUMPHREY?ARLETTE [phone] [address] OFFICE [facility] 2021-03-29 2021-03-29 Outpatient MITCHELL TORRES [facility] [id number] Univers 08:00:00 09:38:08 JOSE MITCHELL kelsie [facility] 2021-03-29 2021-03-29 Outpatient MITCHELL TORRES [facility] [id number] Univers 08:00:00 09:38:08 MITCHELL GARCIA kelsie [facility] 2021-03-29 2021-03-29 Outpatient MITCHELL TORRES [facility] [id number] Univers 08:00:00 08:00:[address] [facility] 2021-03-29 2021-03-29 Orders Doctor MILLAN 1.2.840.114 [id number] Univers 00:00:00 00:00:00 Only Unassigned, CARLOS 350.1.13.10 ity of [facility] 4.2.7.2.686 Bernabe as [phone] [address] 2021-03-23 2021-03-23 Outpatient Moustapha HEATH [facility] [id number] Univers 15:40:00 16:06:08 SRIRAM de oliveira o f [facility] 2021-03-23 2021-03-23 Office [facility] 1.2.840.114 [id number] Univers 15:40:00 16:06:08 Visit Sriram PALOMO 350.1.13.10 ity [facility] 4.2.7.2.686 [place] [id number] Ok jamilahelinor [facility] 059 [facility] 2021-03-23 2021-03-23 Outpatient Moustapha HEATH [facility] [id number] Univers 16:00:00 16:00:00 SRIRAM de oliveira o f [facility] 2021-03-22 2021-03-22 Telephone [facility] 1.2.840.114 [id number] Univers 00:00:00 00:00:00 Diann DEWEY 350.1.13.10 i ty of [place] 4.2.7.2.[place] [id number] Ok dical NAL 188 [facility] 2021-03-21 2021-03-21 Digital Media Coordinator [place], Adc Lab Main [facility] 1.2.8 40.114 [id number] Univers 14:45:00 15:00:00 [facility] 350.1 .13.10 ity of [place] 4.2.7.2.686 [place] [id number] [facility] 353 [facility] 2021-03-21 2021-03-21 Outpatient R [facility] [id number] Univers 14:45:00 14:45:00 [facility] 2021-03-21 2021-03-21 Outpatient R [facility] [id number] Univers 14:45:00 14:45:00 [facility] 2021-03-21 2021-03-21 Orders Doctor YANA 1.2.840.114 [id number] Univers 00:00:00 00:00:00 Only Unassigned, CARLOS 350.1.13.10 ity of [place] [facility] 4.2.7.2.686 Bernabe as [id number] [facility] [address] 2021-03-21 2021-03-21 Telephone HiramclemenciarussellGLENNA 1.2.840.114 [id number] Univers 00:00:00 00:00:00 [facility] 350.1.13.10 i ty of [facility] 4.2.7.2.686 [place] [id number] [facility] [address] 2021-03-20 2021-03-20 Nurse YANA Bautista 1.2.840.114 [id number] Univers 00:00:00 00:00:00 Triage Cielo CARLOS 350.1.13.10 it y of HOSPITAL 4.2.7.2.686 Bernabe as [id number] [facility] [address] 2021-03-18 2021-03-18 Emergency [facility] 1.2.840.114 [id number] Univers 17:02:00 22:45:00 Ananya PALOMO 350.1.13.10 ity of [place] 4.2.7.2.686 [place] [id number] [facility] [address] 2021-03-18 2021-03-18 Emergency [facility] ERT [id number] Univers 17:02:00 17:02:00 ANANYA itkelsie [facility] 2021-03-18 2021-03-18 Emergency X [facility] ERT [id number] Univers 16:34:00 16:34:00 itkelsie [facility] 2021-03-18 2021-03-18 Outpatient R EPI [facility] [id number] Univers 15:00:00 16:15:48 JENNIE martykelsie [facility] 2021-03-18 2021-03-18 Office [facility] 1.2.840.114 [id number] Univers 15:00:00 16:15:48 Visit Counts include 234 beds at the [facility] 350.1.13.10 it y of [place] 4.2.7.2.686 Bernabe as HUMPHREY?BLEA [id number] [address] MEDICAL OFFICE BUILDING 2021-03-18 2021-03-18 Outpatient [facility] ERT [id number] Univers 15:00:00 16:15:48 JENNIE alvino [facility] 2021-03-18 2021-03-18 Outpatient R EPI [facility] [id number] Univers 15:00:00 16:15:48 J[facility]IE [facility] 2021-03-18 2021-03-18 Transition JONO Galvan 1.2.840.114 [id number] Univers 00:00:00 00:00:00 of Care Nara MG 350.1.13.10 it y [facility] 4.2.[place].2.[place] [id number] [facility] [address] 2021-03-12 2021-03-17 Inpatient X [facility] [id number] Univers 12:11:00 15:43:00 [facility] 2021-03-12 2021-03-17 Hospital AaronDamien nieto 1.2.840 .114 [id number] Univers 12:11:00 15:43:00 Encounter Soni Hunter nhhina CARLOS 350.1.13.10 ity of [facility] 4.2.7.2.686 [place] [phone] [facility] [address] 2021-03-12 2021-03-17 Inpatient X [facility] [id number] Univers 12:11:00 15:43:00 [facility] ity [facility] 2021-03-17 2021-03-17 Nurse Esperanza Cronin 1.2.840.114 [id number] Univers 00:00:00 00:00:00 Triage CARLOS 350.1.13.10 it y of [facility] 4.2.7.2.686 Bernabe as [id number] [facility] [address] 2021-03-16 2021-03-16 Case Willian, [facility] 1.2.840.114 [id number] Univers 00:00:00 00:00:00 Management Wissam Y HEALTH 350.1.13.10 ity of [place] [facility] 4.2.7.2.[place] [id number] [facility] [address] 2021-03-16 2021-03-16 Case Willian, [facility] 1.2.840.114 [id number] Univers 00:00:00 00:00:00 Management Wissam Y HEALTH 350.1.13.10 ity of [place] [facility] 4.2.7.2.[place] [id number] [facility] [address] 2021-03-11 2021-03-11 Transition JONO Galvan 1.2.840.114 [id number] Univers 00:00:00 00:00:00 of Care Nara CASEYY 350.1.13.10 it y of [place] 4.2.7.2.686 [place] [id number] [facility] [address] 2021-03-11 2021-03-11 Telephone [facility] 1.2.229.102 [id number] Univers 00:00:00 00:00:00 Sriram [place] 350.1.13.10 ity [facility] 4.2.7.2.[place] [id number] Ok dical NAL 059 [facility] 2021-03-07 2021-03-10 Outpatient X ANUJ GONZALES [facility] SAMI [id number] Univers 08:28:00 14:20:00 ity of [facility] 2021-03-07 2021-03-10 Emergency Hudson Wolfe 1.2.840. 114 [id number] Univers 08:28:00 14:20:00 Anuj Gonzales Leslie RENEE 350.1.13.1 0 ity [facility] 4.2.7.2.686 Bernabe as [id number] [facility] [address] 2021-03-07 2021-03-10 Outpatient X ANUJ GONZALES [facility] SAMI [id number] Univers 08:28:00 14:20:00 ity of [facility] 2021-03-09 2021-03-09 Surgery Misael Castro [facility] 1.2.840.114 [id number] Univers 09:36:00 10:16:00 David ABBASI 350.1.13.10 it y of [place] 4.2.7.2.686 Bernabe as BLDG [id number] [facility] [address] 2021-03-03 2021-03-03 [facility] [id number] Univers 14:00:00 14:44:31 SHANTEL ity [facility] 2021-03-03 2021-03-03 Office [facility] 1.2.840.114 [id number] Univers 14:00:00 14:44:31 Visit Shantel [place] 350.1.13.10 ity [facility] 4.2.7.2.[place] [id number] Ok dical NAL 188 [facility] 2021-03-03 2021-03-03 Outpatient R BROOKS [facility] [id number] Univers 14:00:00 14:00:00 DIANN ity [facility] 2021-02-08 2021-02-08 Office Sabina Barba [facility] 1.2.840.114 [id number] Univers 15:30:00 16:44:10 Visit KHLOE 350.1.13.10 it y of [place] [id number] [address] 2021-02-08 2021-02-08 Outpatient R SABINA BARBA [facility] [id number] Univers 15:30:00 16:44:10 ity [facility] 2021-02-08 2021-02-08 Outpatient R SABINA BARBA [facility] [id number] Univers 15:30:00 16:44:10 ity [facility] 2021-02-08 2021-02-08 Outpatient R SABINA BARBA [facility] [id number] Univers 15:30:00 15:30:00 ity [facility] 2021-02-08 2021-02-08 Outpatient R SABINA BARBA [facility] [id number] Univers 15:30:00 15:30:00 [facility] 2021-02-03 2021-02-03 [facility] [id number] Univers 00:00:00 00:00:00 Management Wondiful A HEALTH [id number] ity of [place] [id number] Bernabe as HUMPHREY?BLEA [phone] [facility] [address] MEDICAL OFFICE BUILDING 2021-02-01 2021-02-01 Office [facility] [id number] Univers 15:30:00 16:58:42 Visit Ericka HEALTH [id number] it y of [place] [id number] Bernabe as HUMPHREY?BLEA [phone] [facility] [address] MEDICAL OFFICE BUILDING 2021-02-01 2021-02-01 [facility] [id number] Univers 15:30:00 16:58:42 ERICKA ity [facility] 2021-02-012021-02-01 Outpatient R MEKA [facility] [id number] Univers 16:30:00 16:30:00 ERICKA kelsie [facility] 2021-02-01 2021-02-01 Digital Media Coordinator Lab, [place] [facility] 1.2.840.1 [id number] Univers 16:02:42 16:17:42 [facility] [id number] [facility] [id number] Bernabe as HUMPHREY?BLEA [phone] [address] OFFICE [facility] 2021-02-01 2021-02-01 Outpatient R MEKA [facility] [id number] Univers 15:30:00 15:30:[address] [facility] 2021-01-31 2021-01-31 [facility] [id number] Univers 13:40:00 13:44:29 [facility] 2021-01-31 2021-01-31 [facility] [id number] Univers 13:40:00 13:44:29 SRIRAM [facility] 2021-01-31 2021-01-31 [facility] 1.2.840.114 [id number] Univers 13:18:52 13:44:29 Visit DimitriCounts include 234 beds at the [facility] [id number] ity [place] [id number] [id number] [facility] 059 [facility] 2021-01-31 2021-01-31 [facility] [id number] Univers 13:40:00 13:40:00 SRIRAM y o [facility] 2021-01-31 2021-01-31 Digital Media Coordinator Lab, [place] [facility] 1.2.840.1 [id number] Univers 10:03:00 10:18:00 [facility] [id number] [place] [facility] 4.2.7.2.686 Bernabe as HUMPHREY?BLEA [phone] [address] MEDICAL OFFICE [facility] 2021-01-31 2021-01-31 Office [facility] 1.2.840.114 [id number] Univers 09:22:40 10:03:18 Visit Wondiful A HEALTH 350.1.13.10 ity of [place] 4.2.7.2.686 Bernabe as HUMPHREY?BLEA [phone] Ok sherif HOLL[address] MEDICAL OFFICE [facility] 2021-01-31 2021-01-31 Out[facility] [id number] Univers 09:30:00 09:30:00 WONDIFUL ity o f [facility] 2021-01-11 2021-01-11 Case [facility] 1.2.840.114 [id number] Univers 00:00:00 00:00:00 Management Wondiful A HEALTH 350.1.13.10 ity of [place] 4.2.7.2.686 Bernabe as HUMPHREY?BLEA [phone] Ok sherif [address]LL[address] MEDICAL OFFICE [facility] 2021-01-07 2021-01-07 Outpatient [facility] [id number] Univers 16:30:00 23:59:00 WONDIFUL ity o f [facility] 2021-01-07 2021-01-07 Hospital [facility] 1.2.370.953 [id number] Univers 16:30:00 23:59:00 Encounter Wondiful A HEALTH 350.1.13.10 ity of [place] 4.2.7.2.686 Bernabe as HUMPHREY?BLEA [phone] Ok sherif [address]LL[address] MEDICAL OFFICE [facility] 2021-01-07 2021-01-07 Digital Media Coordinator Lab, Ang - Db [facility] 1.2.840.1 14 [id number] Univers 16:36:52 16:51:52 Visit Clare Gonsalves A HEALTH 350.1.13.1 0 ity of [place] 4.2.7.2.686 Bernabe as HUMPHREY?BLEA [phone] Ok sherif [address]LL[address] MEDICAL OFFICE BUILDING 2021-01-07 2021-01-07 Outpatient [facility] [id number] Univers 16:15:00 16:37:00 WONDIFUL ity o f [facility] 2021-01-07 2021-01-07 Office [facility] 1.2.840.114 [id number] Univers 15:34:25 16:37:00 Visit Wondiful A HEALTH 350.1.13.10 ity of [place] 4.2.7.2.686 Bernabe as HUMPHREY?BLEA [phone] [address] MEDICAL OFFICE [facility] 2021-01-05 2021-01-05 Telephone [facility] 1.2.840.114 [id number] Univers 00:00:00 00:00:00 Wondiful A HEALTH 350.1.13.10 ity of [place] 4.2.7.2.686 Bernabe as HUMPHREY?BLEA [phone] [address] OFFICE [facility] 2020-12-28 2020-12-28 Outpatient R KIA [facility] [id number] Univers 14:00:00 14:00:00 SILVERIO ity of [facility] 2020-12-27 2020-12-27 Outpatient R MAJOR [facility] [id number] Univers 13:14:51 23:59:00 WONDIFUL ity o f [facility] 2020-12-27 2020-12-27 [facility] 1.2.119.523 [id number] Univers 13:00:00 23:59:00 Encounter Wondiful A [place] 350.1.13.10 ity of [place] 4.2.7.2.686 [place] [facility] [phone] [address] 2020-12-27 2020-12-27 Outpatient [facility] [id number] Univers 00:00:00 00:00:00 WONDIFUL ity o f [facility] 2020-12-13 2020-12-13 [facility]phone [facility] 1.2.840.114 [id number] Univers 00:00:00 00:00:00 Wondiful A Health 350.1.13.10 ity of [place] 4.2.7.2.686 Bernabe as Humphrey?Blea [phone] [address] Medical Office [facility] 2020-12-132020-12-13 Telephone Major DARYL 1.2.840.114 [id number] Univers 00:00:00 00:00:00 Wondiful A Health 350.1.13.10 ity of [place] 4.2.7.2.686 Bernabe as Humphrey?Blea [phone] [address] Office [facility] 2020-12-06 2020-12-06 Telephone Major DARYL 1.2.840.114 [id number] Univers 00:00:00 00:00:00 Wondiful A Health 350.1.13.10 ity of [place] 4.2.7.2.686 Bernabe as Humphrey?Blea [phone] [address] 2020-12-03 2020-12-03 Digital Media Coordinator Lab, Ang - Db [facility] 1.2.840.1 14 [id number] Univers 16:48:38 17:03:11 Visit Clare Gonsalves Health 350.1.13.1 0 ity of [place] 4.2.7.2.686 Bernabe as Humphrey?Blea [phone] [address] Office [facility] 2020-12-03 2020-12-03 Digital Media Coordinator Lab, Ang - Db [facility] 1.2.840.1 14 [id number] Univers 16:48:38 17:03:11 Visit Clare Gonsalves Health 350.1.13.1 0 ity of [place] 4.2.7.2.686 Bernabe as Humphrey?Blea [phone] [address] Office [facility] 2020-12-03 2020-12-03 Digital Media Coordinator Lab, Ang - Db [facility] 1.2.840.1 14 [id number] Univers 16:48:38 17:03:11 Visit Clare Gonsalves HEALTH 350.1.13.1 0 ity of [place] 4.2.7.2.686 Bernabe as HUMPHREY?BLEA [phone] [address] OFFICE [facility] 2020-12-03 2020-12-03 Office JAYNE [facility]MB 1.2.840.114 [id number] Univers 15:32:14 16:49:03 Visit Wondiful A Health 350.1.13.10 ity of [place] 4.2.7.2.686 Bernabe as Humphrey?Blea [phone] Ok sherif kney 044 [facility] Office [facility] 2020-12-03 2020-12-03 Outpatient R MAJOR [facility] [id number] Univers 15:45:00 15:45:00 WONDIFUL ity o f [facility] 2020-11-23 2020-11-23 Office [facility] 1.2.840.114 [id number] Univers 09:49:05 10:43:01 Visit Silverio [place] 350.1.13.10 i ty of [place] 4.2.7.2.686 [place] Profess[place] [phone] [address] 2020-11-23 2020-11-23 Outpatient R KIA [facility] [id number] Univers 10:00:00 10:00:00 SILVERIO ity of [facility] 2020-11-15 2020-11-15 Ref[facility] 1.2.840.114 [id number] Univers 00:00:00 00:00:00 Qiangjun [place] 350.1.13.10 ity of [place] 4.2.7.2.686 [place] Profess[place] [phone] [address] 2020-11-15 2020-11-15 [facility] 1.2.840.114 [id number] Univers 00:00:00 00:00:00 Wondiful A [place] 350.1.13.10 ity of [place] 4.2.7.2.686 [place] Profess[place] [phone] [address] 2020-11-11 2020-11-11 Cali [facility] 1.2.840.114 [id number] Univers 00:00:00 00:00:00 Wondiful A Health 350.1.13.10 ity of [place] 4.2.7.2.686 Bernabe as Professio [phone] [address] One 2020-10-05 2020-10-05 [facility] 1.2.840.114 [id number] Univers 00:00:00 00:00:00 Wondiful A Health 350.1.13.10 ity of [place] 4.2.7.2.686 Bernabe as Professio [phone] [address] 2020-10-04 2020-10-04 Orders Doctor YANA 1.2.840.114 [id number] Univers 00:00:00 00:00:00 Only Unassigned, CARLOS 350.1.13.10 ity of [place] [facility] 4.2.7.2.686 Bernabe as [phone] [address] 2020-09-24 2020-09-24 [facility] 1.2.840.114 [id number] Univers 00:00:00 00:00:00 Wondiful A Health 350.1.13.10 ity of [place] 4.2.7.2.686 Bernabe as Professio [phone] [facility] 044 [facility] 2020-09-09 2020-09-09 Cali Heath [facility] 1.2.840.114 [id number] Univers 00:00:00 00:00:00 Qiangjun [place] 350.1.13.10 ity of [place] 4.2.7.2.686 [place] Profess[place] [phone] [facility] 059 [facility] 2020-09-03 2020-09-03 [facility] 1.2.840.114 [id number] Univers 00:00:00 00:00:00 Wondiful A Health 350.1.13.10 ity of [place] 4.2.7.2.686 Bernabe as Professio [phone] [address] 2020-07-27 2020-07-27 Outpatient R KIA SDJENNI [facility] [id number] Univers 10:20:00 10:20:00 SILVERIO ity of [facility] 2020-07-27 2020-07-27 Office Kia SDJENNI 1.2.840.114 [id number] Univers 09:56:55 10:16:55 [facility] 350.1.13.10 i ty of [place] 4.2.7.2.686 [place] Profess[place] [phone] [facility] 059 [facility] 2020-07-13 2020-07-13 Orders Doctor YANA 1.2.840.114 [id number] Univers 00:00:00 00:00:00 Only Unassigned, CARLOS 350.1.13.10 [facility] 4.2.7.2.686 Bernabe as [phone] [address] 2020-07-08 2020-07-08 Refisra Gonsalves [facility] 1.2.840.114 [id number] Univers 00:00:00 00:00:00 Wondiful A Health 350.1.13.10 ity of [place] 4.2.7.2.686 Bernabe as Professio [phone] [facility] [address] One 2020-06-29 2020-06-29 Outpatient R [facility] [id number] Univers 10:30:00 10:30:00 ity [facility] 2020-06-29 2020-06-29 Outpatient [facility] [id number] Univers 10:30:00 10:30:00 SILVERIO ity [facility] 2020-06-07 2020-06-07 Office [facility] 1.2.840.114 [id number] Univers 13:02:14 13:29:23 Visit Sriram [place] 350.1.13.10 ity of [place] 4.2.7.2.686 [place] Profess[place] [phone] [facility] 059 [facility] 2020-06-07 2020-06-07 Outpatient [facility] [id number] Univers 13:00:00 13:00:00 SRIRAM de oliveira o [facility] 2020-06-02 2020-06-02 Outpatient R DEE [facility] [id number] Univers 19:20:00 19:20:00 VIRI de oliveira o [facility] 2020-06-02 2020-06-02 Laboratory Lab, Adc Fam Pob I [facility] 1.2. 840.114 [id number] Univers 18:38:28 18:58:28 Only Jose [facility] 350.1.13.10 ity of [place] 4.2.7.2.686 [place] Professio [phone] [address] Office [facility] One 2020-06-02 2020-06-02 Letter Doctor YANA 1.2.840.114 [id number] Univers 00:00:00 00:00:00 (Out) Unassigned, CARLOS 350.1.13.10 ity of [place] [facility] 4.2.7.2.686 Bernabe as [phone] [address] 2020-06-02 2020-06-02 Letter Doctor YANA 1.2.840.114 [id number] Univers 00:00:00 00:00:00 (Out) Unassigned, CARLOS 350.1.13.10 ity of [place] [facility] 4.2.7.2.686 Bernabe as [phone] [address] 2020-06-02 2020-06-02 Letter Doctor YANA 1.2.840.114 [id number] Univers 00:00:00 00:00:00 (Out) Unassigned, CARLOS 350.1.13.10 ity of [place] [facility] 4.2.7.2.686 Bernabe as [phone] [address] 2020-06-02 2020-06-02 Letter Doctor YANA 1.2.840.114 [id number] Univers 00:00:00 00:00:00 (Out) Unassigned, CARLOS 350.1.13.10 ity of [place] [facility] 4.2.7.2.686 Bernabe as [phone] [facility] [address] 2020-05-20 2020-05-20 Telephone YANA Samano 1.2.349.652 [id number] Univers 00:00:00 00:00:00 Teri RENEE 350.1.13.10 ity of HOSPITAL 4.2.7.2.686 Bernabe as [phone] [facility] [address] 2020-05-20 2020-05-20 Telephone YANA Samano 1.2.407.691 [id number] 00:00:00 00:00:00 Teri RENEE 350.1.13.10 [facility] 42.7.2.686 [id number] 082 2020-04-28 2020-04-28 Refill [facility] 1.2.840.114 [id number] Univers 00:00:00 00:00:00 Silverio [place] 350.1.13.10 i ty of [place] 4.2.7.2.686 [place] [phone] Ok dicnd nal [address] [place] [address] 2020-04-27 2020-04-27 [facility] 1.2.840.114 [id number] Univers 11:25:29 11:45:29 Visit Silverio [place] 350.1.13.10 i ty of [place] [address].2.7.2.686 [place] Profess[place] [phone] [address] 2020-04-27 2020-04-27 Outpatient [facility] [id number] Univers 11:40:00 11:40:00 SILVERIO ity [facility] 2020-04-26 2020-04-26 Outpatient [facility] [id number] Univers 10:20:00 10:20:00 ERICH ity [facility] 2020-04-14 2020-04-14 [facility] 1.2.935.664 [id number] Univers 09:18:24 23:59:00 Encounter Wondiful Lauryn Palomo 350.1.13.10 ity [facility] 4.2.7.2.686 [place] [phone] [address] 2020-04-14 2020-04-14 Outpatient [facility] [id number] Univers 00:00:00 00:00:00 WONDIFUL ity o f [facility] 2020-03-31 2020-03-31 Digital Media Coordinator [place], Adc Lab Main [facility] 1.2.8 40.114 [id number] Univers 09:18:24 09:33:24 Visit Major, Wondiful A [place] 350.1.13. 10 ity of [place] 4.2.7.2.686 [place] Profess[place] [phone] Ok dical nal 353 [facility] 2020-03-31 2020-03-31 Outpatient [facility] [id number] Univers 09:15:00 09:15:00 WONDIFUL ity o f [facility] 2020-03-30 2020-03-30 Laboratory Pacemaker/Icd, [facility] 1.2. 840.114 [id number] Univers 12:51:02 13:15:05 Only Sewdom, Silverio De[place] 350.1.13.10 ity of [place] 4.2.7.2.686 [place] [phone] [facility] 059 [facility] 2020-03-30 2020-03-30 Outpatient R [facility] [id number] Univers 13:00:00 13:00:00 ity of [facility] 2020-03-29 2020-03-29 Office [facility] 1.2.840.114 [id number] Univers 15:15:24 16:12:41 Visit [facility] Lauryn [facility] 350.1.13.10 ity of [place] 4.2.7.2.686 Bernabe as Professio [phone] [facility] [address] One 2020-03-29 2020-03-29 Outpatient [facility] [id number] Univers 15:30:00 15:30:00 WONDIFUL ity o f [facility] 2020-03-03 2020-03-03 Orders Doctor YANA 1.2.840.114 [id number] Univers 00:00:00 00:00:00 Only Unassigned, CARLOS 350.1.13.10 ity of [place] [facility] 4.2.7.2.686 Bernabe as [phone] [address] 2020-02-03 2020-02-03 Outpatient [facility] [id number] Univers 14:20:00 14:20:00 SRIRAM ity o f [facility] 2020-02-03 2020-02-03 Office [facility] 1.2.840.114 [id number] Univers 13:38:09 14:13:45 Visit Guillechaim Palomo 350.1.13.10 ity of [place] 4.2.7.2.686 [place] [phone] Ok dicnd nal [address] [place] [address] 2020-01-27 2020-01-27 Office [facility] 1.2.840.114 [id number] Univers 10:58:57 11:32:49 Visit Silverio De[place] 350.1.13.10 i ty of [place] 4.2.7.2.686 [place] [phone] [address] 2020-01-27 2020-01-27 Outpatient R [facility] [id number] Univers 11:00:00 11:00:00 SILVERIO ity of [facility] 2020-01-20 2020-01-20 Orders Doctor YANA 1.2.840.114 [id number] Univers 00:00:00 00:00:00 Only Unassigned, CARLOS 350.1.13.10 ity of [place] [facility] 4.2.7.2.686 Bernabe as [phone] [address] 2020-01-20 2020-01-20 Telephone [facility] 1.2.892.765 [id number] Univers 00:00:00 00:00:00 Sriram Palomo 350.1.13.10 ity of [place] 4.2.7.2.686 [place] [phone] Ok dic[address] 2020-01-20 2020-01-20 Refill [facility] 1.2.840.114 [id number] Univers 00:00:00 00:00:00 Qiachaim Palomo 350.1.13.10 ity of [place] 4.2.7.2.686 [place] [phone] Ok dicnd nal [address] [place] [address] 2020-01-14 2020-01-14 Orders Doctor YANA 1.2.840.114 [id number] Univers 00:00:00 00:00:00 Only Unassigned, CARLOS 350.1.13.10 ity of [place] [facility] 4.2.7.2.686 Bernabe as [phone] [address] 2020-01-12 2020-01-12 Outpatient R KUMAR, [facility] [id number] Univers 10:00:00 10:00:00 DIMITRIZECHARIAH itkelsie o f [facility] 2020-01-05 2020-01-05 Digital Media Coordinator 2, Adc Lab [facility] 1.2.840.114 [id number] Univers 15:31:18 15:46:18 Visit Omole, Min Palomo 350.1.1 3.10 ity of [place] 4.2.7.2.686 [place] [phone] Ok dical nal 353 [facility] 2020-01-05 2020-01-05 Office krystle, [facility] 1.2.840.114 [id number] Univers 14:39:45 15:28:14 Visit Min Palomo 350.1.13.10 i ty of [place] 4.2.7.2.686 [place] Profess[place] [phone] Ok dicnd nal 059 [facility] 2020-01-05 2020-01-05 Outpatient R FREDDY, [facility] [id number] Univers 14:45:00 14:45:00 MIN ity of [facility] 2020-01-05 2020-01-05 Orders Doctor MILLAN 1.2.840.114 [id number] Univers 00:00:00 00:00:00 Only Unassigned, CARLOS 350.1.13.10 ity of [place] [facility] 4.2.7.2.686 Bernabe as [phone] [address] 2020-01-01 2020-01-01 Telephone Kumar, [facility] 1.2.362.713 [id number] Univers 00:00:00 00:00:00 Dimitrizechariah Dewey 350.1.13.10 ity of [place] 4.2.7.2.686 [place] [phone] Ok dicnd nal 059 [facility] 2019-12-19 2019-12-19 Office [facility] 1.2.840.114 [id number] Univers 11:30:41 12:16:36 Visit Nita Palomo 350.1.13.10 i ty of [place] 4.2.7.2.686 [place] [phone] Ok dical nal 085 [facility] 2019-12-19 2019-12-19 Outpatient R NITA DEGROOT [facility] 10 [id number] Univers 11:40:00 11:40:00 NITA DEGROOT i ty of [facility] 2019-12-19 2019-12-19 Telephone [facility] 1.2.373.791 [id number] Univers 00:00:00 00:00:00 Qialisazechariah Palomo 350.1.13.10 ity of [place] 4.2.7.2.686 [place] [phone] Ok dicnd nal 059 [facility] 2019-12-18 2019-12-18 Orders Doctor YANA 1.2.840.114 [id number] Univers 00:00:00 00:00:00 Only Unassigned, CARLOS 350.1.13.10 ity of [place] [facility] 4.2.7.2.686 Bernabe as [phone] [address] 2019-12-16 2019-12-16 Office [facility] 1.2.840.114 [id number] Univers 08:53:47 09:13:47 Visit Silverio [place] 350.1.13.10 i ty of [place] 4.2.7.2.686 [place] [phone] [facility] nal 059 [facility] 2019-12-16 2019-12-16 Outpatient R KIA [facility] [id number] Univers 09:00:00 09:00:00 SILVERIO ity of [facility] 2019-12-15 2019-12-15 Telephone [facility] 1.2.840.114 [id number] Univers 00:00:00 00:00:00 Wondiful A Health 350.1.13.10 ity of [place] 4.2.7.2.686 Bernabe as Professio [phone] [facility] [address] Office [facility] One 2019-12-15 2019-12-15 Case [facility] 1.2.840.114 [id number] Univers 00:00:00 00:00:00 Management Wondiful A Health 350.1.13.10 ity of [place] 4.2.7.2.686 Bernabe as Professio [phone] [facility] [address] Office Building [facility] 2019-12-10 2019-12-10 Orders Doctor YANA 1.2.840.114 [id number] Univers 00:00:00 00:00:00 Only Unassigned, CARLOS 350.1.13.10 ity of [place] [facility] 4.2.7.2.686 Bernabe as [phone] [address] 2019-12-09 2019-12-09 Urgent Provider, [facility] 1.2.840.114 [id number] Univers 14:46:41 15:59:38 Care Yeni Mccormick[facility] 350.1.13.10 ity of [place] 4.2.7.2.686 Bernabe as Professio [phone] [address] Office [facility] 2019-12-09 2019-12-09 Outpatient R LUKE [facility] [id number] Univers 15:00:00 15:00:00 MONICA ity of [facility] 2019-12-04 2019-12-04 Office [facility] 1.2.840.114 [id number] Univers 12:39:51 13:39:11 Visit Wonjoshua A Health 350.1.13.10 ity of [place] 4.2.7.2.686 Bernabe as Professio [phone] [address] Office [facility] 2019-12-04 2019-12-04 [facility] [id number] Univers 13:00:00 13:00:00 WONDIFUL ity o f [facility] 2019-12-02 2019-12-02 Laboratory Pacemaker/Icd, [facility] 1.2. 840.114 [id number] Univers 10:50:24 11:27:03 Only Sriram [place] 350.1.13.10 ity of [place].2.[place] [phone] [facility] 059 [facility] 2019-12-02 2019-12-02 Outpatient R [facility] [id number] Univers 11:00:00 11:00:00 ity of [facility] 2019-12-02 2019-12-02 Telephone [facility] 1.2.840.114 [id number] Univers 00:00:00 00:00:00 Wondiful A Health 350.1.13.10 ity of [place] 4.2.7.2.686 Bernabe as Professio [phone] Ok dical nal [address] Office [facility] One 2019-12-01 2019-12-01 Office [facility] 1.2.840.114 [id number] Univers 15:16:46 16:01:04 Visit Sriram Palomo 350.1.13.10 ity of [place] 4.[place].7.2.[place] [phone] Ok dical nal 059 [facility] 2019-12-01 2019-12-01 Outpatient R KUMAR [facility] [id number] Univers 15:40:00 15:40:00 GUILLELISAZECHARIAH martyy o f [facility] 2019-12-01 2019-12-01 Transition Jono Mccurdy 1.2.840.114 [id number] Univers 00:00:00 00:00:00 of Care Jo L Mg 350.1.13.10 i ty of [place] 4.2.7.2.686 [place] [phone] [facility] [address] 2019-11-26 2019-11-28 Hospital Kirt Thomason [facility] 1.2.840.1 14 [id number] Univers 14:42:00 15:06:00 Encounter Gab Servin 350.1.13.10 ity of [place] 4.2.7.2.686 [place] [phone] [facility] [address] 2019-11-26 2019-11-28 Inpatient X GAB SERVIN [facility] SAMI [id number] Univers 14:42:00 15:06:00 ity of [facility] 2019-11-26 2019-11-26 Telephone [facility] 1.2.840.114 [id number] Univers 00:00:00 00:00:00 Wondiful A Health 350.1.13.10 ity of [place] 4.2.7.2.686 Ebrnabe as Professio [phone] Ok dical nal [address] One 2019-11-24 2019-11-24 Telemedici [facility] 1.2.840.114 [id number] Univers 12:42:21 16:15:48 ne Visit Wondiful A Health 350.1.13.10 ity of [place] 4.2.7.2.686 Bernabe as Professio [phone] [facility] nal [address] Building One 2019-11-24 2019-11-24 Outpatient [facility] [id number] Univers 15:30:00 15:30:00 WONDIFUL ity o f [facility] 2019-11-24 2019-11-24 Transition Jono Henry 1.2.840.114 [id number] Univers 00:00:00 00:00:00 of Care Cielo Mg 350.1.13.10 it y of [place] 4.2.7.2.[place] [phone] [facility] [address] 2019-11-24 2019-11-24 Orders Doctor YANA 1.2.840.114 [id number] Univers 00:00:00 00:00:00 Only Unassigned, CARLOS 350.1.13.10 ity of [place] [facility] 4.2.7.2.686 Bernabe as [phone] [facility] [address] 2019-11-21 2019-11-21 Transition Jono Henry 1.2.840.114 [id number] Univers 00:00:00 00:00:00 of Care Cielo Mg 350.1.13.10 [place] [phone] [facility] [address] 2019-11-08 2019-11-20 [facility] Fam Craig 1.2.840.114 [id number] Univers 18:18:00 16:52:00 Encounter Argenis Barnett Carlos 350.1.13.1 0 ity of [facility] 4.2.7.2 .686 [place] [phone] [facility] [address] 2019-11-08 2019-11-20 [facility] [id number] Univers 18:18:00 16:52:00 AHMED ity of [facility] 2019-11-20 2019-11-20 [facility] 1.2.840.114 [id number] Univers 00:00:00 00:00:00 Wondiful [facility] 350.1.13.10 ity of [place] 4.2.7.2.686 Bernabe as Professio [phone] [address] 2019-11-19 2019-11-19 [facility] [id number] Univers 14:30:00 14:30:00 [facility] 2019-11-19 2019-11-19 [facility] 1.2.840.114 [id number] Univers 00:00:00 00:00:00 Wondiful [facility] 350.1.13.10 ity of [place] 4.2.7.2.686 Bernabe as Professio [phone] [address] 2019-11-17 2019-11-17 [facility] [id number] Univers 08:00:00 08:00:00 SILVERIO ity [facility] 2019-11-14 2019-11-14 Outpatient R [facility] [id number] Univers 09:00:00 09:00:00 ity of [facility] 2019-11-10 2019-11-10 [facility] 1.2.840.114 [id number] Univers 00:00:00 00:00:00 Wondiful [facility] 350.1.13.10 ity of [place] 4.2.7.2.686 Bernabe as Professio [phone] [address] [facility] 2019-11-08 2019-11-08 [facility] 1.2.840.114 [id number] Univers 00:00:00 00:00:00 Wondiful [facility] 350.1.13.10 ity of [place] 4.2.7.2.686 Bernabe as Professio [phone] [address] Office Building One 2019-11-05 2019-11-05 Hospital Kia [facility] 1.2.840.114 [id number] Univers 07:42:01 23:59:00 Encounter [facility] 350.1.13.10 it[place] [phone] [address] ([facility]) 2019-11-05 2019-11-05 Outpatient R KIA [facility] [id number] Univers 00:00:00 00:00:00 SILVERIO ity of [facility] 2019-10-29 2019-10-29 Pre Visit Major [facility] 1.2.840.114 [id number] Univers 00:00:00 00:00:00 Outreach Wondiful A Health 350.1.13.10 ity of [place] 4.2.7.2.686 Bernabe as Professio [phone] [address] Office Building One 2019-10-29 2019-10-29 Pre Visit Major [facility] 1.2.840.114 [id number] Univers 00:00:00 00:00:00 Outreach Wondiful [facility] 350.1.13.10 ity of [place] 4.2.7.2.686 Bernabe as Professio [phone] [address] Office Building One 2019-10-28 2019-10-28 Office Major [facility] 1.2.840.114 [id number] Univers 08:55:08 09:43:57 Visit Wondiful [facility] 350.1.13.10 ity of [place] 4.2.7.2.686 Bernabe as Professio [phone] [address] Office Building [facility] 2019-10-28 2019-10-28 Outpatient R MAJOR [facility] [id number] Univers 09:30:00 09:30:00 WONDIFUL ity o f [facility] 2019-10-24 2019-10-24 Emergency Lukasz [facility] 1.2.395.057 [id number] Univers 19:34:00 23:51:00 Lubna S [place] 350.1.13.10 it[place] [phone] [facility] [address] 2019-10-24 2019-10-24 Emergency X LUKASZ, [facility] ERT [id number] Univers 19:34:00 23:51:00 LUBNA ity of [facility] 2019-10-24 2019-10-24 [facility] 1.2.840.114 [id number] Univers 00:00:00 00:00:00 Wondiful A Health 350.1.13.10 ity of [place] 4.2.7.2.686 Bernabe as Professio [phone] [address] Office Building [facility] 2019-10-24 2019-10-24 Orders Doctor YANA 1.2.840.114 [id number] Univers 00:00:00 00:00:00 Only Unassigned, CARLOS 350.1.13.10 ity of [place] [facility] 4.2.7.2.686 Bernabe as [phone] [facility] [address] 2019-10-21 2019-10-21 Telephone Mary Kay Adam 1.2.731.653 [id number] Univers 00:00:00 00:00:00 Silverio [place] 350.1.13.10 it y of Hospital 4.2.7.2.686 Bernabe as [phone] [facility] [address] 2019-10-09 2019-10-09 Telephone GLENNA Adam 1.2.840.114 [id number] Univers 00:00:00 00:00:00 Silverio Y HEALTH 350.1.13.10 i ty of CL[place]ICS [place] [phone] [facility] [address] 2019-10-08 2019-10-08 [facility] 1.2.840.114 [id number] Univers 00:00:00 00:00:00 Wondiful A Health 350.1.13.10 ity of [place] 4.2.7.2.686 Bernabe as Professio [phone] [address] Office [facility] 2019-10-08 2019-10-08 [facility] 1.2.063.560 [id number] Univers 00:00:00 00:00:00 Silverio [place] 350.1.13.10 i ty [place] Profess[place] [phone] [facility] 059 [facility] 2019-10-01 2019-10-01 Orders Doctor YANA 1.2.840.114 [id number] Univers 00:00:00 00:00:00 Only Unassigned, CARLOS 350.1.13.10 ity of [place] [facility] 4.2.7.2.686 Bernabe as [phone] [address] 2019-09-23 2019-09-23 Telephone [facility] 1.2.981.425 [id number] Univers 00:00:00 00:00:00 Silverio [place] 350.1.13.10 i ty of [place] [phone] [facility] 059 [facility] 2019-09-18 2019-09-18 [facility]phone [facility] 1.2.840.114 [id number] Univers 00:00:00 00:00:00 Wondiful A [place] 350.1.13.10 ity of [place] [phone] [facility] 044 [facility] 2019-09-17 2019-09-17 [facility] 1.2.338.873 [id number] Univers 00:00:00 00:00:00 Silverio [place] 350.1.13.10 i ty of [place].2.[place] [phone] [place] 370129 [facility] 2019-09-16 2019-09-16 Office [facility] 1.2.840.114 [id number] Univers 10:18:05 12:06:59 Visit Silverio [place] 350.1.13.10 i ty of [place] 4.2.7.2.[place] [phone] [place] 370129 [facility] 2019-09-16 2019-09-16 Outpatient [facility] [id number] Univers 10:40:00 10:40:00 SILVERIO ity of [facility] 2019-09-16 2019-09-16 Telephone [facility] 1.2.861.385 [id number] Univers 00:00:00 00:00:00 Dimitrizechariah [place] 350.1.13.10 ity of [place] [phone] [place] 370129 [facility] 2019-09-15 2019-09-15 Laboratory Pc, Adc Echo Room 1 - [facility] 1 .2.840.114 [id number] Univers 09:42:44 11:10:38 Only Kumar Sriram Palomo 350.1.13.10 it[place] of [place].2.[place] [phone] [address] 2019-09-15 2019-09-15 Outpatient R [facility] [id number] Univers 10:00:00 10:00:00 ity of [facility] 2019-09-10 2019-09-10 [facility] 1.2.840.114 [id number] Univers 00:00:00 00:00:00 Wondiful A De[place] 350.1.13.10 ity of [place] [phone] [address] 2019-09-08 2019-09-08 Office [facility] 1.2.840.114 [id number] Univers 13:10:22 13:44:08 Visit Sriram [place] 350.1.13.10 ity of [place] [phone] [address] 2019-09-08 2019-09-08 Outpatient [facility] [id number] Univers 13:20:00 13:20:00 SRIRAM fergusony o f [facility] 2019-08-25 2019-08-25 [facility] 1.2.840.114 [id number] Univers 00:00:00 00:00:00 Sriram Health 350.1.13.10 i ty of [place] 4.2.7.2.686 Bernabe as Professio [phone] [address] Office [facility] One 2019-08-18 2019-08-18 Telephone Kumar, [facility] 1.2.570.195 [id number] Univers 00:00:00 00:00:00 Sriram Palomo 350.1.13.10 it[place] of [place] [phone] Ok dicnd nal 059 [facility] 2019-08-15 2019-08-15 Nurse Visit, [facility] Nurse [facility] 1.2.840.1 14 [id number] Univers 09:12:28 21:57:47 Visit Dago Gross 350.1.13. 10 ity of [place].2.[place] [phone] Ok dical nal 059 [facility] 2019-08-15 2019-08-15 Digital Media Coordinator 2, [facility] Lab [facility] 1.2.840.114 [id number] Univers 10:09:35 10:24:35 Visit Dago Gross 350.1.13. 10 it[place] of [place].2.[place] [phone] Ok dical nal 353 [facility] 2019-08-15 2019-08-15 Outpatient R [facility] [id number] Univers 09:30:00 09:30:00 ity of [facility] 2019-08-13 2019-08-13 [facility] 1.2.840.114 [id number] Univers 16:05:34 16:57:20 Visit Alexey Palomo 350.1.13.10 i ty of [place] [phone] Ok dical nal 220 [facility] 2019-08-13 2019-08-13 Outpatient [facility] [id number] Univers 16:30:00 16:30:00 ALEXEY ity [facility] 2019-08-13 2019-08-13 Orders Doctor MILLAN 1.2.840.114 [id number] Univers 00:00:00 00:00:00 Only Unassigned, CARLOS 350.1.13.10 ity of [place] [facility] 4.2.7.2.686 Bernabe as [phone] [address] 2019-08-13 2019-08-13 [facility] 1.2.840.114 [id number] Univers 00:00:00 00:00:00 Sriram [place] 350.1.13.10 [place] [phone] [address] 2019-08-07 2019-08-07 [facility] 1.2.840.114 [id number] Univers 00:00:00 00:00:00 Wondiful A Health 350.1.13.10 ity of [place] 4.2.7.2.686 Bernabe as Professio [phone] [address] 2019-08-04 2019-08-04 Digital Media Coordinator Pc, Adc Vascular Room 1 - [facility] 1.2.840.114 [id number] Univers 10:43:00 11:05:18 Visit Sriram Heath 350.1.13.10 it[place] of [place] [phone] [address] 2019-08-04 2019-08-04 Outpatient R [facility] [id number] Univers 11:00:00 11:00:00 ity of [facility] 2019-08-04 2019-08-04 Telephone [facility] 1.2.818.098 [id number] Univers 00:00:00 00:00:00 Sriram Palomo 350.1.13.10 [place] of [place] [phone] [address] 2019-08-03 2019-08-03 [facility]isra [facility] 1.2.840.114 [id number] Univers 00:00:00 00:00:00 Wondiful A Health 350.1.13.10 ity of [place] 4.2.7.2.686 Bernabe as Professio [phone] [address] 2019-07-30 2019-07-30 Office [facility] 1.2.840.114 [id number] Univers 13:54:46 14:40:55 Visit Guillelisazechariah [place] 350.1.13.10 it[place] of [place] 4.[place].7.2.[place] [phone] [place] 370129 [facility] 2019-07-30 2019-07-30 Outpatient [facility] [id number] Univers 14:20:00 14:20:00 SRIRAM ity o f [facility] 2019-07-30 2019-07-30 Orders Doctor YANA 1.2.840.114 [id number] Univers 00:00:00 00:00:00 Only Unassigned, CARLOS 350.1.13.10 ity of [place] [facility] 4.2.7.2.686 Bernabe as [phone] [address] 2019-07-17 2019-07-17 Orders Doctor YANA 1.2.840.114 [id number] Univers 00:00:00 00:00:00 Only Unassigned, CARLOS 350.1.13.10 ity of [place] [facility] 4.2.7.2.686 Bernabe as [phone] [address] 2019-07-16 2019-07-16 Telephone [facility] 1.2.840.114 [id number] Univers 00:00:00 00:00:00 Wondiful A Health 350.1.13.10 ity of [place] 4.2.7.2.686 Bernabe as Professio [phone] [facility] 044 [facility] One 2019-07-01 2019-07-01 Telephone [facility] 1.2.821.626 [id number] Univers 00:00:00 00:00:00 Guillelisazechariah [place] 350.1.13.10 it[place] of [place] [phone] [facility] 059 [facility] 2019-06-30 2019-06-30 Digital Media Coordinator [place], Adc Lab Main [facility] 1.2.8 40.114 [id number] Univers 07:52:57 08:07:57 Visit Kumar Sriram Palomo 350.1.13.10 it[place] of [place] [phone] [facility] 353 [facility] 2019-06-30 2019-06-30 Outpatient R KUMAR, [facility] [id number] Univers 08:00:00 08:00:00 SRIRAM de oliveira o f [facility] 2019-06-25 2019-06-25 Outpatient R KUMAR, [facility] [id number] Univers 09:40:00 09:40:00 SRIRAM fergusony o [facility] 2019-06-25 2019-06-25 Telemedici [facility] 1.2.840.114 [id number] Univers 08:37:50 08:57:50 ne Visit Sriram [place] 350.1.13.10 it[place] of [place].2.[place] [phone] [facility] 059 [facility] 2019-05-28 2019-05-28 [facility] 1..840.114 [id number] Univers 00:00:00 00:00:00 Wondiful A Health 350.1.13.10 ity of [place] 4.2.7.2.686 Bernabe as Professio [phone] [facility] 044 [facility] 2019-05-25 2019-05-25 [facility] 1..840.114 [id number] Univers 00:00:00 00:00:00 Wondiful A Health 350.1.13.10 ity of [place] 4.2.7.2.686 Bernabe as Professio [phone] [address] 2019-05-21 2019-05-21 Outpatient R ALEXUS RAMOS [facility] [id number] Univers 10:00:00 10:00:00 ALEXUS RAMOS ity [facility] 2019-05-20 2019-05-20 Telemgisell [facility]SI[facility] 1..840.114 [id number] Univers 13:50:59 14:10:59 ne Visit [facility] [place] 350.1.13.10 it[place] of [place] [phone] Ok dical nal 059 [facility] 2019-05-20 2019-05-20 Outpatient R KUMAR, [facility] [id number] Univers 13:40:00 13:40:00 QIALISAZECHARIAH ity o f [facility] 2019-05-20 2019-05-20 Telephone [facility] 1.2.840.114 [id number] Univers 00:00:00 00:00:00 Wondiful A Health 350.1.13.10 ity of [place] 4.2.7.2.686 Bernabe as Professio [phone] Ok dical nal [address] [place] Office [facility] 2019-05-13 2019-05-13 Telephone [facility] 1.2.639.510 [id number] Univers 00:00:00 00:00:00 Qiangzechariah [place] 350.1.13.10 ity of [place].2.[place] [phone] Ok dical nal 059 [facility] 2019-05-09 2019-05-09 Refill [facility] 1.2.840.114 [id number] Univers 00:00:00 00:00:00 Wondiful A Health 350.1.13.10 ity of [place] 4.2.7.2.686 Bernabe as Professio [phone] Ok dical nal [address] [place] Office [facility] 2019-05-02 2019-05-02 Telephone [facility] 1.2.840.114 [id number] Univers 00:00:00 00:00:00 Wondiful A Health 350.1.13.10 ity of [place] 4.2.7.2.686 Bernabe as Professio [phone] Ok dical nal [address] [place] Office [facility] 2019-05-02 2019-05-02 Telephone [facility] 1.2.535.615 [id number] Univers 00:00:00 00:00:00 Wentong [place] 350.1.13.10 i ty of [place] 4[place].2.[place] [phone] Ok dical nal 220 [facility] 2019-04-30 2019-04-30 Digital Media Coordinator [place], Adc Lab Main [facility] 1.2.8 40.114 [id number] Univers 09:32:20 09:47:20 Visit Sriram Heath 350.1.13.10 it[place] of [place] 4[place].2.[place] [phone] Ok dical nal 353 [facility] 2019-04-30 2019-04-30 Outpatient [facility] [id number] Univers 09:45:00 09:45:00 SRIRAM fergusony o f [facility] 2019-04-30 2019-04-30 Telephone [facility] 1.2.840.114 [id number] Univers 00:00:00 00:00:00 WonFangxinmei A [employer] 350.1.13.10 ity of [place] 4.2.7.2.686 Bernabe as Professio [phone] Ok dical nal 044 [facility] One 2019-04-28 2019-04-28 Office [facility] 1.2.840.114 [id number] Univers 13:21:45 14:34:07 Visit Sriram Palomo 350.1.13.10 it[place] of [place] 4[place].2.[place] [phone] Ok dical nal 059 [facility] 2019-04-28 2019-04-28 Outpatient R KUMAR [facility] [id number] Univers 13:20:00 13:20:00 SRIRAM ity o f [facility] 2019-04-09 2019-04-09 Digital Media Coordinator Luís Coleman Lab Main [facility] 1.2.8 40.114 [id number] Univers 16:15:01 16:30:01 Visit Alexey [place] 350.1.13.10 it[place] of [place].2.[place] [phone] Ok dical sathya 353 [facility] 2019-04-09 2019-04-09 Office [facility] 1.2.840.114 [id number] Univers 15:08:31 15:58:05 Visit Alexey [place] 350.1.13.10 i ty of [place] 4.2.7.2.[place] [phone] Ok dical nal 220 [facility] 2019-04-09 2019-04-09 Orders Doctor YANA 1.2.840.114 [id number] Univers 00:00:00 00:00:00 Only Unassigned, CARLOS 350.1.13.10 ity of [place] [facility] 4.2.7.2.686 Bernabe as [phone] [address] 2019-03-14 2019-03-30 Nurse Visit, [facility] Nurse [facility] 1.2.840.1 14 [id number] Univers 08:39:08 18:06:53 Visit Dago Gross 350.1.13. 10 it[place] of [place] 4[place].2.[place] [phone] [facility] 059 [facility] 2019-03-28 2019-03-28 Telephone Major [facility] 1.2.840.114 [id number] Univers 00:00:00 00:00:00 Wondiful A Health 350.1.13.10 ity of [place] 4.2.7.2.686 Bernabe as Professio [phone] [facility] 044 [facility] 2019-03-24 2019-03-24 Telephone Major [facility] 1.2.840.114 [id number] Univers 00:00:00 00:00:00 Wondiful A Health 350.1.13.10 ity of [place] 4.2.7.2.686 Bernabe as Professio [phone] [facility] 044 [facility] 2019-03-14 2019-03-14 Outpatient R GINNY [facility] [id number] Univers 09:15:00 09:37:46 SENDIL ity of [facility] 2019-03-14 2019-03-14 Orders Doctor YANA 1.2.840.114 [id number] Univers 00:00:00 00:00:00 Only Unassigned, CARLOS 350.1.13.10 ity of [place] [facility] 4.2.7.2.686 Bernabe as [phone] [address] 2019-03-06 2019-03-06 Telephone [facility] 1.2.840.114 [id number] Univers 00:00:00 00:00:00 Wondiful A Health 350.1.13.10 ity of [place] 4.2.7.2.686 Bernabe as Professio [phone] [place] [address] [address] Office Building One 2019-01-27 2019-01-27 Outpatient R KUMAR, [facility] [id number] Univers 14:20:00 14:44:45 SRIRAM fergusony o f [facility] 2019-01-19 2019-01-19 Emergency X MARIO, [facility] ERT [id number] Univers 10:06:29 15:10:00 EVAN de oliveira [facility] 2019-01-06 2019-01-06 Out[facility] [id number] Univers 15:00:00 15:00:00 CLARE de oliveira o f [facility] 2018-12-11 2018-12-11 Outpatient R [facility] [id number] Univers 08:45:00 08:45:00 EKATERINA de oliveira [facility] 2018-11-01 2018-11-01 Telephone [facility] 1.2.840.114 [id number] Univers 00:00:00 00:00:00 Wissam HEALTH 350.1.13.10 it y of [facility] 4.2.7.2.686 [facility] [phone] [facility] Primary & 059 [facility] 2018-10-31 2018-10-31 Telephone [facility] 1.2.840.114 [id number] Univers 00:00:00 00:00:00 Wondiful A Health 350.1.13.10 ity of [place] 4.2.7.2.686 Bernabe as Professio [phone] [place] [address] [address] Office Building One 2018-10-30 2018-10-30 Telephone [facility] 1.2.713.397 [id number] Univers 00:00:00 00:00:00 Madeleine Rica HEALTH 350.1.13.10 ity of [place] 4.2.7.2.686 [facility] s [facility] [phone] [facility] Primary & 059 [facility] 2018-10-30 2018-10-30 Telephone [facility] 1.2.840.114 [id number] Univers 00:00:00 00:00:00 Wondiful A Health 350.1.13.10 ity of [place] 4.2.7.2.686 Bernabe as Professio [phone] Ok dical nal [address] [place] Office Building One 2018-10-29 2018-10-29 Office Cookie [facility] 1.2.840.114 [id number] Univers 13:11:56 13:52:23 Visit Emily Health 350.1.13.10 i ty of [place] 4.2.7.2.686 Bernabe as Professio [phone] Ok dical nal [address] Office Building One 2018-10-28 2018-10-29 Office Fac, Adc Heart Failure Cardio [facility] 1.2.840.114 [id number] Univers 15:47:43 12:03:16 Visit Edgar Cortés [place] 350.1 .13.10 ity of [place] 4.2.7.2.686 [facility] Professio [phone] Ok dical nal 059 [facility] 2018-10-28 2018-10-28 Hospital Nate [facility] 1.2.840.114 [id number] Univers 16:46:06 23:59:00 Encounter Madeleine Palomo 350.1.13.10 ity of [place] 4.2.7.2.686 [facility] [place] [phone] [facility] [address] 2018-10-28 2018-10-28 Digital Media Coordinator 1, Adc Lab [facility] 1.2.840.114 [id number] Univers 16:41:14 16:56:14 Visit Madeleine [place] 350.1.13.10 ity of [place] 4.2.7.2.[place] [phone] [facility] [address] 2018-10-28 2018-10-28 Orders Doctor YANA 1.2.840.114 [id number] Univers 00:00:00 00:00:00 Only Unassigned, CARLOS 350.1.13.10 ity of [place] [facility] 4.2.7.2.686 Bernabe as [phone] [facility] [address] 2018-10-24 2018-10-24 Cali Dorsey [facility] 1.2.840.114 [id number] Univers 00:00:00 00:00:00 Wissam HEALTH 350.1.13.10 it y of [place].2.7.2.[place] [phone] [facility] Primary & [facility] 2018-10-14 2018-10-14 Refill Freddy, [facility] 1.2.840.114 [id number] Univers 00:00:00 00:00:00 Min [place] 350.1.13.10 i ty of [place].2.7.2.[place] [phone] [address] Building 2018-10-01 2018-10-01 Orders Doctor YANA 1.2.840.114 [id number] Univers 00:00:00 00:00:00 Only Unassigned, CARLOS 350.1.13.10 ity of [place] [facility] 4.2.7.2.686 Bernabe as [phone] [facility] 009 Branch 2018-09-26 2018-09-26 Digital Media Coordinator Lab, [facility] Fam Pob I [facility] 1.2. 840.114 [id number] Univers 13:45:07 15:25:16 Visit Major [facility] 350.1.13.1 0 ity of [place] 4.2.7.2.686 Bernabe as Professio [phone] [address] Office Building One 2018-09-26 2018-09-26 Telephone Fac, [facility] 1.2.840.114 [id number] Univers 00:00:00 00:00:00 Heart HEALTH 350.1.13.10 it y of Failure [place] 4.2.7.2.[place] [phone] [facility] Primary & [facility] 2018-09-10 2018-09-10 Office Major [facility] 1.2.840.114 [id number] Univers 12:36:16 13:37:40 Visit Josianeful A Health 350.1.13.10 ity of [place] 4.2.7.2.686 Bernabe as Professio [phone] [address] Office Building One 2018-09-02 2018-09-02 Orders Doctor YANA 1.2.840.114 [id number] Univers 00:00:00 00:00:00 Only Unassigned, CARLOS 350.1.13.10 ity of [place] [facility] 4.2.7.2.686 Bernabe as [phone] [address] Results Test Description Test Time Test Comments Results Result Comments Source POCT GLUCOSE (AUTOMATED) 2022-02-19 18:34:13 Test Item Value Reference Range Interpretation Comme nts POCT GLU (test code = 3047730209) 354 mg/dL 70-110 H Lab Interpretation (test code = 70117-6) [facility]normal [facility]2022-02-19 14:51:34 Test Item Value Reference Range Interpretation Comments POCT GLU (test code = 5686137085) 158 mg/dL 70-110 H Lab Interpretation (test code = Abnormal 14626-9) [facility]2022-02-19 07:09:11 Test Item Value Reference Range Interpretation Comments POCT GLU (test code = 1346097601) 109 mg/dL 70-110 Lab Interpretation (test code = Normal 57940-4) [facility]2022-02-19 06:15:00 Test Item Value Reference Range Interpretation Comments POCT GLU (test code = [id number]) 56 mg/dL 70-110 L Lab Interpretation (test code = Abnormal 56451-0) [facility]22-02-19 03:41:03 Test Item Value Reference Range Interpretation Comments POCT GLU (test code = [id number]) 197 mg/dL 70-110 H Lab Interpretation (test code = Abnormal 99566-7) [facility]2022-02-18 23:17:16 Test Item Value Reference Range Interpretation Comments POCT GLU (test code = [id number]) 240 mg/dL 70-110 H Lab Interpretation (test code = Abnormal 05843-4) [facility]24:23 Test Item Value Reference Range Interpretation Comments POCT GLU (test code = [id number]) 274 mg/dL 70-110 H Lab Interpretation (test code = Abnormal 53555-0) [facility]2022-02-18 18:24:18 Test Item Value Reference Range Interpretation Comments POCT GLU (test code = [id number]) 92 mg/dL 70-110 Lab Interpretation (test code = Normal 11684-1) [facility] (Total Cholesterol, Triglycerides, HDL) - [id number] 12:27:34 Test Item Value Reference Range Interpretation Comments CHOL (test code = 146 mg/dL 120-200 [id number]) HDL (test code = 54 mg/dL See_Comment [Automated message] [id number]) The system [employer] generated this result transmit luis miguel reference range : >=50. The refer ence range was not u sed to interpret th is result as normal/abnormal . HDLC RATIO (test code = See_Comment [Au tomated message] [id number]) The system [employer] generated this result transmit luis miguel reference range : <=4.5. The refe rence range was not u sed to interpret th is result as normal/abnormal . TRIG (test code = 113 mg/dL 30-170 8567708135) LDL CHOL (test code = 69 mg/dL See_Comment [Auto mated message] 81958-3) The system [employer] generated this result transmit luis miguel reference range : <=160. The refe rence range was not u sed to interpret th is result as normal/abnormal . VLDL (test code = 23 mg/dL 5-60 3734601754) Lab Interpretation (test Normal code = 97723-6) [id number] 12:27:34 Test Item Value Reference Range Interpretation Comments NT-proBNP (test code 24150 pg/mL See_Comment H [Autom ated = 3466314168) message] The system which generated this result transmitted reference range : <=450. The reference range was not used to interpret this result as normal/abnormal . SEN (test code = SEN) Biotin has been reported to cause a negative bias, interpret results relative to patient's use of biotin. Lab Interpretation Abnormal (test code = 80009-8) [facility] (NA, K, CL, CO2, GLUCOSE, BUN, CREATININE, CA)2022-02-18 12:27:14 Test Item Value Reference Range Interpretation Comments NA (test code = 137 mmol/L 135-145 4051069340) K (test code = 4.0 mmol/L 3.5-5.0 9572601076) CL (test code = 104 mmol/L 98-108 0293278706) CO2 TOTAL (test code = 25 mmol/L 23-31 6044233140) AGAP (test code = 2-16 5705774916) BUN (test code = 62 mg/dL 7-23 H 7696550195) GLUCOSE (test code = 90 mg/dL 70-110 4986641331) CREATININE (test code = 2.02 mg/dL 0.50-1.04 H 3998364498) CALCIUM (test code = 8.3 mg/dL 8.6-10.6 L 8084953818) eGFR (test code = mL/min/1.73m2 4199852578) SEN (test code = SEN) Association of [...] tests). Lab Interpretation Abnormal (test code = 47387-1) [facility] WITH [id number] 11:30:43 Test Item Value Reference Range Interpretation [...] RDW-SD (test code = 46.4 fL 39.0-49.9 78784-0) RDW-CV (test code = 13.2 % 12.0-15.5 788-0) PLT (test code = See_Comment [Automated 777-3) message] The sy stem which generated this result transmitted reference range : 166 - 358 10*3/ ?L. The reference r beltran was not used to interpret this result as normal/abnormal . MPV (test code = 13.0 fL 9.5-12.9 H 45869-6) NRBC/100 WBC (test See_Comment [Automat ed code = 2198880506) message] The system which generated this result transmitted reference range : 0.0 - 10.0 /100 WBCs. The refer ence range was not u sed to interpret th is result as normal/abnormal . NRBC x10^3 (test code See_Comment [Auto mated = 3899448292) message] The s ystem which generated this result transmitted reference range : 10*3/?L. The reference range was not used to interpret this result as normal/abnormal . GRAN MAT (NEUT) % 58.4 % (test code = 770-8) IMM GRAN % (test code 0.30 % = 5246660397) LYMPH % (test code = 27.5 % 736-9) MONO % (test code = 9.3 % 5905-5) EOS % (test code = 4.2 % 713-8) BASO % (test code = 0.3 % 706-2) GRAN MAT x10^3(ANC) 3.71 10*3/uL 1.88-7.09 (test code = 6724924031) IMM GRAN x10^3 (test 0.00-0.06 code = 3611219581) LYMPH x10^3 (test code 1.75 10*3/uL 1.32-3.29 = 731-0) MONO x10^3 (test code 0.59 10*3/uL 0.33-0.92 = 742-7) EOS x10^3 (test code = 0.27 10*3/uL 0.03-0.39 711-2) BASO x10^3 (test code 0.01-0.07 = 704-7) Lab Interpretation Abnormal (test code = 05209-5) [facility] GLUCOSE (AUTOMATED)2022-02-18 02:39:08 Test Item Value Reference Range Interpretation Comments POCT GLU (test code = 8306508088) 196 mg/dL 70-110 H Lab Interpretation (test code = Abnormal 14676-3) [facility] GLUCOSE (AUTOMATED)2022-02-17 23:16:54 Test Item Value Reference Range Interpretation Comments POCT GLU (test code = 0273831647) 140 mg/dL 70-110 H Lab Interpretation (test code = Abnormal 31499-3) [facility] ([facility]E)2022-02-17 19:44:53 Test Item Value Reference Range Interpretation Comments Height (test code = in 9309682262) Weight (test code = lbs 6156466344) Systolic BP (test code = mmHg 6738261306) Diastolic BP (test code mmHg = 0062624677) Heart Rate (test code = bpm 5515219003) BSA (test code = 1.81 m2 3452035263) Ao root diam (test code 3.30 cm = 7985960207) Aortic root (test code = 3.3 cm 9066981568) Ao root annulus (test 3.3 cm code = 7857624198) LVOT diameter (test code 1.89 cm = 3297939247) LVOT area (test code = 2.80 cm2 1793245679) LAV(MOD-sp4) (test code 52.90 mL = 4040139825) E wave decelartion time 0.17 s (test code = 1703676568) MV stenosis pressure 1/2 51.3 ms time (test code = 0925205234) MV Peak E Mily (test code 95.2 cm/s = 0025529234) MV Peak A Mily (test code 61.8 cm/s = 1689240819) E/A ratio (test code = ratio 5509949961) MV Prop V (test code = 23.30 cm/s 6186158596) MV E/e' septal (test 7.8 cm/s code = 9605580197) TR Peak Mily (test code = 310.8 cm/s 0244682722) Triscuspid Valve mmHg Regurgitation Peak Gradient (test code = 4291406673) Tapse (test code = 1.99 cm 6671616345) LVOT stroke volume (test 40.40 cm3 code = 3258577356) LVOT peak mily (test code 67.8 cm/s = 2652404047) LVOT mn grad (test code mmHg = 1137782380) AV LVOT peak gradient mmHg (test code = 3518869244) LVOT peak VTI (test code 14.4 cm = 1427718310) LV V1 mean (test code = 45.30 cm/s 8893885035) MR max PG (test code = 65.40 mm[Hg] 7019835425) MR max mily (test code = 404.30 cm/s 4180419129) Mr max mily (test code = 404.3 m/s 1436076453) LVIDD (test code = 6.30 cm 4663743369) Left Ventricular End 202.4 mL Diastolic Volume by Teichholz Method (test code = 4745542) IVS (test code = 0.94 cm 9075562596) Interventricular Septum 0.94 cm Diastolic Thickness by 2D (test code = 2542684) LVPWD (test code = 0.94 cm 9992695592) PW (test code = 0.94 cm 0.6-1.8 9638568157) EF(Teich) (test code = 19.10 % 0663181035) LVIDS (test code = 5.80 cm 3875248222) Left Ventricular End 163.8 mL Systolic Volume by Teichholz Method (test code = 6833090) FS (test code = 9 % 6803507353) EF - 2D (test code = 19.10 % 29364778) LA size (test code = 3.5 cm 5611992101) Radiology Study observation (narrative) (test code = 06373-9) SEN (test code = SEN) Table formatting [...] mL of Lumason ultrasound enhancing agent used. [facility] GLUCOSE (AUTOMATED)2022-02-17 18:19:03 Test Item Value Reference Range Interpretation Comments POCT GLU (test code = 7529903034) 160 mg/dL 70-110 H Lab Interpretation (test code = Abnormal 05572-3) [facility] GLUCOSE (AUTOMATED)2022-02-17 14:06:55 Test Item Value Reference Range Interpretation Comments POCT GLU (test code = 0036845636) 101 mg/dL 70-110 Lab Interpretation (test code = Normal 12933-2) [facility] GLUCOSE (AUTOMATED)2022-02-17 03:58:48 Test Item Value Reference Range Interpretation Comments POCT GLU (test code = 7368228799) 278 mg/dL 70-110 H Lab Interpretation (test code = Abnormal 83611-5) [facility] GLUCOSE (AUTOMATED)2022-02-17 03:21:46 Test Item Value Reference Range Interpretation Comments POCT GLU (test code = 7338627081) 279 mg/dL 70-110 H Lab Interpretation (test code = Abnormal 72017-2) [facility]GLYCOS[facility] HEMOGLOBIN (A1C)2022-02-17 01:58:04 Test Item Value Reference Range Interpretation Comments HGB A1C (test code = 10.0 % 4.0-5.7 H 4548-4) SEN (test code = SEN) Reference RangesNormal: <5.7%Prediabetes: 5.7 - 6.4%Diabetes: > 6.5% Lab Interpretation (test Abnormal code = 58237-4) [facility]icsTR[facility] [id number] 17:30:57 Test Item Value Reference Interpretation Comments Range TROPONIN I (test 0.028 ng/mL See_Comment [Automated code = 6344074909) message] The system which generated this result [...] biotin. Lab Interpretation Normal (test code = 97185-7) [facility] [id number] 17:27:54 Test Item Value Reference Range Interpretation Comments NT-proBNP (test code 14137 pg/mL See_Comment H [Autom ated = 8032735054) message] The system which generated this result transmitted reference range : <=450. The reference range was not used to interpret this result as normal/abnormal . SEN (test code = SEN) Biotin has been reported to cause a negative bias, interpret results relative to patient's use of biotin. Lab Interpretation Abnormal (test code = 43099-1) [facility] (NA, K, CL, CO2, GLUCOSE, BUN, CREATININE, CA)2022-02-16 17:19:15 Test Item Value Reference Range Interpretation Comments NA (test code = 135 mmol/L 135-145 1263489685) K (test code = 4.7 mmol/L 3.5-5.0 1559827825) CL (test code = 104 mmol/L 98-108 5837817241) CO2 TOTAL (test code = 23 mmol/L 23-31 1072383104) AGAP (test code = 2-16 6158415365) BUN (test code = 58 mg/dL 7-23 H 1337041174) GLUCOSE (test code = 260 mg/dL 70-110 H 4724953358) CREATININE (test code = 1.78 mg/dL 0.50-1.04 H 8956521797) CALCIUM (test code = 8.2 mg/dL 8.6-10.6 L 8904638800) eGFR (test code = mL/min/1.73m2 5973269245) SEN (test code = SEN) Association of [...] tests). Lab Interpretation Abnormal (test code = 55517-7) [facility]icsHEPAT[facility] FUNCTION PANEL (03426) (ALB,T.PRO,BILI T,BU/BC,ALT,AST,ALK PHOS)2022-02-16 17:19:15 Test Item Value Reference Range Interpretation Comments TOTAL BILI (test code = 4521725610) 0.4 mg/dL 0.1-1.1 BILI UNCON (test code = 4525655938) 0.3 mg/dL 0.1-1.1 BILI CONJ (test code = 3468953801) 0.0 mg/dL 0.0-0.3 T PROTEIN (test code = 6845791103) 6.8 g/dL 6.3-8.2 ALBUMIN (test code = 5836883859) 3.8 g/dL 3.5-5.0 ALK PHOS (test code = 5369496636) 146 U/L 34-122 H ALTv (test code = 1742-6) 29 U/L 5-35 AST(SGOT) (test code = 6843582197) 28 U/L 13-40 Lab Interpretation (test code = Abnormal 43493-1) [facility]icsLIPASE2022-12-29 17:19:15 Test Item Value Reference Range Interpretation Comments LIPASE (test code = 5877570244) 46 U/L 0-220 Lab Interpretation (test code = Normal 88806-6) [facility]icsCB WITH [id number] 17:12:53 Test Item Value Reference Range Interpretation Comments WBC (test code = See_Comment [Automated 6690-2) message] The sy stem which generated this result transmitted reference range : 4.30 - 11.10 10*3/?L. The reference range was not used to interpret this result as normal/abnormal . RBC (test code = See_Comment L [Automated 289-8) message] The sy stem which generated this [...] RDW-SD (test code = 47.8 fL 39.0-49.9 51155-8) RDW-CV (test code = 13.5 % 12.0-15.5 788-0) PLT (test code = See_Comment [Automated 777-3) message] The sy stem which generated this result transmitted reference range : 166 - 358 10*3/ ?L. The reference r beltran was not used to interpret this result as normal/abnormal . MPV (test code = 12.9 fL 9.5-12.9 19112-5) NRBC/100 WBC (test See_Comment [Automat ed code = 5293601365) message] The system which generated this result transmitted reference range : 0.0 - 10.0 /100 WBCs. The refer ence range was not u sed to interpret th is result as normal/abnormal . NRBC x10^3 (test code See_Comment [Auto mated = 5435118478) message] The s ystem which generated this result transmitted reference range : 10*3/?L. The reference range was not used to interpret this result as normal/abnormal . GRAN MAT (NEUT) % 75.4 % (test code = 770-8) IMM GRAN % (test code 0.20 % = 4926532295) LYMPH % (test code = 14.9 % 736-9) MONO % (test code = 7.7 % 5905-5) EOS % (test code = 1.6 % 713-8) BASO % (test code = 0.2 % 706-2) GRAN MAT x10^3(ANC) 6.77 10*3/uL 1.88-7.09 (test code = 0560082516) IMM GRAN x10^3 (test 0.00-0.06 code = 3448525084) LYMPH x10^3 (test code 1.34 10*3/uL 1.32-3.29 = 731-0) MONO x10^3 (test code 0.69 10*3/uL 0.33-0.92 = 742-7) EOS x10^3 (test code = 0.14 10*3/uL 0.03-0.39 711-2) BASO x10^3 (test code 0.01-0.07 = 704-7) Lab Interpretation Abnormal (test code = 52635-4) [facility] HEMOGLOBIN A1C [id number] 15:15:00 Test Item Value Reference Range Interpretation Comments POCT HBA1C (test code = 4548-4) 7.6 % 4-6 A Lab Interpretation (test code = Abnormal 01609-3) [facility] HEMOGLOBIN A1C [id number] 15:15:00 Test Item Value Reference Range Interpretation Comments POCT HBA1C (test code = 4548-4) 7.6 % 4-6 A Lab Interpretation (test code = Abnormal 75587-7) [facility]
[2022-09-14 05:06] LABS: Absolute Lymphocytes (CBC) 1.4 K/uL (0.7-4.9); Hematocrit 29.2 % (36.0-45.0); Lymphocytes % 19.8 % (15.3-44.8); MCV 93.9 fL (80-100); MPV 9.8 fL (7.6-11.3); RBC Red Blood Cell Count 3.11 M/uL (3.86-4.86)
[2022-09-14 05:14] LABS: Protime INR 1.16
[2022-09-14 05:21] LABS: ALT/SGPT 40 U/L (13-56); AST/SGOT 25 U/L (15-37); Albumin 3.2 g/dL (3.4-5.0); Alkaline Phosphatase 142 U/L (45-117); BUN Blood Urea Nitrogen 94 mg/dL (7-18); Bicarbonate 24 mEq/L (21-32); Bilirubin Total 0.2 mg/dL (0.2-1.0); Glomerular Filtration Rate 25 ml/min (=/>90); Glucose Level 201 mg/dL (74-106); Magnesium 2.2 mg/dL (1.6-2.4); NT PRO-BNP 14374 pg/mL (<450); Potassium 3.8 mEq/L (3.5-5.1); Protein, Total 7.5 g/dL (6.4-8.2); Sodium Level 139 mEq/L (136-145); Troponin High Sensitivity 21.9 pg/mL (<58.9)
[2022-09-14 05:22] LABS: Bilirubin Direct < 0.1 mg/dL (0-0.2); Bilirubin Indirect, Calculated ND mg/dL (0.2-0.8)
--- NOTE | 2022-09-14 05:41 | ER ---
Nurse's Notes [facility] Name: Teena Simpson Age: 77 yrs Sex: Female : 1945 Arrival Date: 09/14/2022 Time: 01:52 Bed 7 Private MD: Diagnosis: Dyspnea, unspecified;Upper respiratory congestion, chronic systolic heart failure Presentation: 09/14 02:00 Chief complaint: Patient states: "I can't breath. My DrKaren gave me some Trelogy a couple vc1 of weeks ago but I ran out and the pharmacy didn't have it". Coronavirus screen: Vaccine status: Patient reports receiving the 2nd dose of the covid vaccine. Electrolytic Ozone. 02:00 Method Of Arrival: Ambulatory vc1 02:00 Ebola Screen: Patient negative for fever greater than or equal to 101.5 degrees vc1 Fahrenheit, and additional compatible Ebola Virus Disease symptoms Patient denies exposure to infectious person. Patient denies travel to an Ebola-affected area in the 21 days before illness onset. No symptoms or risks identified at this time. Initial Sepsis Screen: Does the patient meet any 2 criteria? No. Patient's initial sepsis screen is negative. Does the patient have a suspected source of infection? No. Patient's initial sepsis screen is negative. Risk Assessment: Do you want to hurt yourself or someone else? Patient reports no desire to harm self or others. Onset of symptoms is unknown. 02:00 Acuity: TYSON 4 vc1 Triage Assessment: 02:00 General: Appears in no apparent distress. comfortable, Behavior is agitated. Pain: vc1 Denies pain. EENT: No deficits noted. No signs and/or symptoms were reported regarding the EENT system. Neuro: Level of Consciousness is awake, alert, obeys commands, Oriented to person, place, time, situation, Appropriate for age. 02:00 Cardiovascular: No deficits noted. Respiratory: Reports shortness of breath at rest vc1 Onset: The symptoms/episode began/occurred the patient has mild shortness of breath. Respiratory: Airway is patent Respiratory effort is even, unlabored, Respiratory pattern is regular, symmetrical. GI: No deficits noted. : No deficits noted. Derm: No deficits noted. No signs and/or symptoms reported regarding the dermatologic system. Musculoskeletal: No deficits noted. No signs and/or symptoms reported regarding the musculoskeletal system. 02:00 Cardiovascular: Rhythm is A-V sequential pacer. vc1 Historical: - Allergies: 02:31 Augmentin; vc1 02:31 Cipro; vc1 02:31 Keppra; vc1 - Home Meds: 02:31 Eliquis 2.5 mg Oral tablet 1 tab 2 times per day [Active]; atorvastatin 40 mg Oral tab vc1 1 tab every day at bedtime [Active]; furosemide 40 mg Oral tab 1 tab daily [Active]; metoprolol succinate 100 mg Oral tab 1 tab 2 times per day [Active]; Novolin N NPH U-100 Insulin 100 unit/mL Sub-Q tab 20 units every evening [Active]; Phenytoin 100mg Oral 1 tab 2 times per day [Active]; - PMHx: 02:31 Anxiety; Atrial Fib; CHF; Diabetes - IDDM; High Cholesterol; Hypertension; Kidney vc1 failure stage 4; Low HR; Myocardial infarction; neuropathy; Seizures; - PSHx: 02:31 Appendectomy; Hemorrhoidectomy; Pacemaker-Defib; vc1 - Immunization history:: Client reports receiving the 2nd dose of the Covid vaccine. - Social history:: Smoking status: Patient denies any tobacco usage or history of. - Family history:: not pertinent. Screenin:35 [facility] ED Fall Risk Assessment (Adult) History of falling in the last 3 months, vc1 including since admission No falls in past 3 months (0 pts) Confusion or Disorientation No (0 pts) Intoxicated or Sedated Yes (3 pts) Impaired Gait No (0 pts) Mobility Assist Device Used No (0 pt) Altered Elimination No (0 pt) Score/Fall Risk Level 0 - 2 = Low Risk Oriented to surroundings, Maintained a safe environment, Educated pt \\T\\ family on fall prevention, incl call for assistance when getting out of bed. Abuse screen: Denies threats or abuse. Nutritional screening: No deficits noted. Tuberculosis screening: No symptoms or risk factors identified. Assessment: 02:34 Reassessment: pt ambulatory from lobby to room 7 gait steady respirations even non kl labored. 02:44 General: Appears in no apparent distress. comfortable, Behavior is calm, cooperative, jb4 appropriate for age, Pt states "I am here because I have a runny nose, feel congested, and cant sleep.". Pain: Denies pain. Neuro: Level of Consciousness is awake, alert, obeys commands, Oriented to person, place, time, situation. Cardiovascular: Patient's skin is warm and dry. Respiratory: Airway is patent Respiratory effort is even, unlabored, Respiratory pattern is regular, symmetrical. GI: No signs and/or symptoms were reported involving the gastrointestinal system. : No signs and/or symptoms were reported regarding the genitourinary system. EENT: Derm: Skin is intact, Skin is pink, warm \\T\\ dry. Musculoskeletal: Circulation, motion, and sensation intact. Range of motion: intact in all extremities. 03:07 Reassessment: No changes from previously documented assessment. Patient and/or family vc1 updated on plan of care and expected duration. Pain level reassessed. Patient is alert, oriented x 3, equal unlabored respirations, skin warm/dry/pink. Cardiovascular: No deficits noted. Rhythm is Respiratory: Breath sounds are clear. Respiratory: Reports shortness of breath Airway is patent Respiratory effort is even, unlabored, Respiratory pattern is regular, symmetrical. 04:00 Reassessment: No changes from previously documented assessment. Patient and/or family vc1 updated on plan of care and expected duration. Pain level reassessed. Patient is alert/active/playful, equal unlabored respirations, skin warm/dry/pink. 05:26 Reassessment: No changes from previously documented assessment. Patient and/or family jb4 updated on plan of care and expected duration. Pain level reassessed. Patient is alert, oriented x 3, equal unlabored respirations, skin warm/dry/pink. Vital Signs: 02:00 BP 123 / 70; Pulse 90; Resp 18; Temp 97.9; Pulse Ox 97% ; Weight 78.47 kg; Height 5 ft. vc1 0 in. ; Pain 0/10; 03:00 BP 105 / 90; Pulse 90; Resp 21; Pulse Ox 96% on R/A; vc1 04:00 BP 115 / 77; Pulse 90; Resp 16; Pulse Ox 99% on R/A; jb4 05:00 BP 115 / 94; Pulse 90; Resp 16; Pulse Ox 98% on R/A; jb4 02:00 Body Mass Index 33.79 (78.47 kg, 152.4 cm) vc1 02:00 Pain Scale: Adult vc1 ED Course: 01:56 Patient arrived in ED. es 02:00 Patient has correct armband on for positive identification. Bed in low position. Call vc1 light in reach. Side rails up X2. Client placed on continuous cardiac and pulse oximetry monitoring. NIBP monitoring applied. 02:13 Jacky Casper MD is Attending Physician. sp4 02:31 Triage completed. vc1 02:33 Arm band placed on right wrist. vc1 02:44 Ej Mcmillan RN is Primary Nurse. jb4 03:19 XRAY Chest (1 view) In Process Unspecified. EDMS 05:36 Juan Rodrigues MD is Referral Physician. sp4 06:12 No provider procedures requiring assistance completed. Patient did not have IV access vc1 during this emergency room visit. 06:13 Provided Education on: steroids and ventolin. vc1 Administered Medications: 05:53 Drug: predniSONE PO 60 mg Route: PO; vc1 06:12 Follow up: Response: No adverse reaction; Marked relief of symptoms vc1 05:53 Drug: guaiFENesin PO Liquid 15 ml Route: PO; vc1 06:12 Follow up: Response: No adverse reaction; Marked relief of symptoms vc1 05:53 Drug: DuoNeb Nebulize (3:1) (2.5 mg - 0.5 mg) 3 ml Route: Nebulizer; vc1 06:12 Follow up: Response: No adverse reaction; Marked relief of symptoms vc1 05:53 Drug: Acetaminophen-Codeine PO (300 mg-30 mg) 2 tabs Route: PO; vc1 06:12 Follow up: Response: No adverse reaction; Marked relief of symptoms vc1 Medication: 02:35 VIS not applicable for this client. vc1 Outcome: 05:40 Discharge ordered by . sp4 06:12 Discharged to home ambulatory, with family. vc1 06:12 Condition: improved 06:12 Discharge instructions given to patient, Instructed on discharge instructions, follow up and referral plans. medication usage, Demonstrated understanding of instructions, follow-up care, medications, Prescriptions given X 1. 06:42 Patient left the ED. jb4 Signatures: Dispatcher [employer] EDWA Viri High RN RN kl Salyer, Edna Ej Mcmillan RN RN jb4 Lizbet Max RN RN vc1 Potepalov, Jacky, MD MD sp4
--- NOTE | 2022-09-14 05:41 | EDPHYS ---
Physician Documentation [facility] Name: Teena Simpson Age: 77 yrs Sex: Female : 1945 Arrival Date: 09/14/2022 Time: 01:52 Bed 7 Private MD: ED Physician Jacky Casper HPI: 09/14 04:28 This 77 yrs old Female presents to ER via Ambulatory with complaints of sp4 Breathing Difficulty. 05:13 Patient's past medical history includes systolic congestive heart failure, atrial sp4 fibrillation on chronic anticoagulation, chronic kidney disease stage IV, insulin-dependent diabetes, hypertension, hyperlipidemia. Last admission here on 08/12/2022 for congestive heart failure acute on chronic heart failure, atrial fibrillation, hyperglycemia associate with diabetes, chronic kidney disease stage IV, hypertension and hyperlipidemia. Patient's ejection fraction was 25 to 30% with severe global hypokinesis and mild tricuspid regurgitation. Patient was managed with trace pulmonary edema, but was given IV Lasix with improvement, chest pain resolved, patient was planned for stress test on 09/07/2022. Renal function remained stable. There was some concern for sleep apnea. Patient was advised to keep daily weight logs. Patient was advised to obtain sleep study for further evaluation. Advised to follow-up with PCP and ruling machine set up operator. Patient was advised to continue to take 2 Lasix per day and follow-up with Dr. Cheng with pulmonology. Also with polysomnograph tech in 1 to 2 weeks.. Patient's hemoglobin at that time was 10.1, platelet count 219, INR 1.07, creatinine 200 and glucose of 195. BUN 55. . Patient's medications include atorvastatin 40 mg at bedtime, insulin NPH 30 units subcu twice a day. Phenytoin extended release 50 mg p.o. twice a day. Metoprolol succinate 50 mg p.o. twice a day. Sacubitril/valsartan or Entresto 24/26 mg tablets quarter tab p.o. daily. Apixaban 5 mg p.o. twice daily. Lasix 40 mg p.o. daily. Amiodarone 400 mg p.o. twice daily.. Today patient reports some dyspnea associated with upper respiratory congestion. Patient denied any chest pains.. Historical: - Allergies: 02:31 Augmentin; vc1 02:31 Cipro; vc1 02:31 Keppra; vc1 - Home Meds: 02:31 Eliquis 2.5 mg Oral tablet 1 tab 2 times per day [Active]; atorvastatin 40 mg Oral tab vc1 1 tab every day at bedtime [Active]; furosemide 40 mg Oral tab 1 tab daily [Active]; metoprolol succinate 100 mg Oral tab 1 tab 2 times per day [Active]; Novolin N NPH U-100 Insulin 100 unit/mL Sub-Q tab 20 units every evening [Active]; Phenytoin 100mg Oral 1 tab 2 times per day [Active]; - PMHx: 02:31 Anxiety; Atrial Fib; CHF; Diabetes - IDDM; High Cholesterol; Hypertension; Kidney vc1 failure stage 4; Low HR; Myocardial infarction; neuropathy; Seizures; - PSHx: 02:31 Appendectomy; Hemorrhoidectomy; Pacemaker-Defib; vc1 - Immunization history:: Client reports receiving the 2nd dose of the Covid vaccine. - Social history:: Smoking status: Patient denies any tobacco usage or history of. - Family history:: not pertinent. ROS: 04:44 Constitutional: Negative for fever, chills, and weight loss, Respiratory: Negative for sp4 cough, wheezing, and pleuritic chest pain, positive for shortness of breath and upper respiratory congestion 04:44 All other systems are negative. Exam: 04:29 ECG was reviewed by the Attending Physician. EKG time 0 251. Patient has heart rate sp4 of 89, AV dual paced rhythm with pacemaker that is biventricular 04:44 Constitutional: This is a well developed, well nourished patient who is awake, alert, sp4 and in no acute distress. Head/Face: Normocephalic, atraumatic. Eyes: Pupils equal round and reactive to light, extra-ocular motions intact. Lids and lashes normal. Conjunctiva and sclera are not injected. Cornea within normal limits. Periorbital areas with no swelling, redness, or edema. ENT: Nares patent. No nasal discharge, no septal abnormalities noted. Tympanic membranes are normal and external auditory canals are clear. Oropharynx with no redness, swelling, or masses, exudates, or evidence of obstruction, uvula midline. Mucous membranes moist. Neck: Trachea midline, no thyromegaly or masses palpated, and no cervical lymphadenopathy. Supple, full range of motion without nuchal rigidity, or vertebral point tenderness. Chest/axilla: Normal chest wall appearance and motion. Nontender with no deformity. No lesions are appreciated. Cardiovascular: Regular rate and rhythm with a normal S1 and S2. No gallops, murmurs, or rubs. Normal PMI, no JVD. No pulse deficits. Respiratory: Lungs have equal breath sounds bilaterally, clear to auscultation and percussion. No rales, rhonchi or wheezes noted. No increased work of breathing, no retractions or nasal flaring. Abdomen/GI: Soft, non-tender, with normal bowel sounds. No distension or tympany. No guarding or rebound. No evidence of tenderness throughout. Back: No spinal tenderness. No costovertebral tenderness. Skin: Warm, dry with normal turgor. Normal color with no rashes, no lesions, and no evidence of cellulitis. MS/ Extremity: Pulses equal, no cyanosis. Neurovascular intact. Full, normal range of motion. Mild bilateral edema without pitting Neuro: Awake and alert, GCS 15, oriented to person, place, time, and situation. Cranial nerves II-XII grossly intact. Motor strength 5/5 in all extremities. Sensory grossly intact. Psych: Awake, alert, with orientation to person, place and time. Behavior, mood, and affect are within normal limits Vital Signs: 02:00 BP 123 / 70; Pulse 90; Resp 18; Temp 97.9; Pulse Ox 97% ; Weight 78.47 kg; Height 5 ft. vc1 0 in. ; Pain 0/10; 03:00 BP 105 / 90; Pulse 90; Resp 21; Pulse Ox 96% on R/A; vc1 04:00 BP 115 / 77; Pulse 90; Resp 16; Pulse Ox 99% on R/A; jb4 05:00 BP 115 / 94; Pulse 90; Resp 16; Pulse Ox 98% on R/A; jb4 02:00 Body Mass Index 33.79 (78.47 kg, 152.4 cm) vc1 02:00 Pain Scale: Adult vc1 MDM: 03:07 Patient medically screened. sp4 04:29 ED course: EXAM: XR Chest, 1 View CLINICAL HISTORY: The patient is 77 years old and is sp4 Female; CHEST PAIN TECHNIQUE: Frontal view of the chest. COMPARISON: No relevant prior studies available. FINDINGS: Lungs: Prominent interstitial markings which may indicate interstitial edema. Peribronchial thickening. No consolidation. Pleural space: Unremarkable. No pneumothorax. Heart: Unremarkable. Mediastinum: Unremarkable. Bones/joints: Unremarkable. Tubes, lines and devices: Left-sided pacemaker/AICD. IMPRESSION: Prominent interstitial markings which may indicate interstitial edema. Peribronchial thickening. No consolidation.. 05:34 Differential diagnosis: Anxiety Reaction Bronchitis CHF exacerbation, pneumonia, sp4 Psychogenic pulmonary edema, reactive airway disease. Antibiotic administration: Not indicated. Data reviewed: vital signs, nurses notes, old medical records, lab test result(s), EKG, radiologic studies, plain films. Consideration of Admission/Observation Escalation of care including admission/observation considered. At this time admission deemed not appropriate. ED course: There is no significant difference and brain natruretic peptide appears similar to baseline, creatinine similar to baseline, pulmonary congestion on x-ray similar to baseline, is no sign of acute worsening of heart failure, and there is no sign of worsening kidney function.. We will provide extra Lasix p.o. 20 mg as well as p.o. prednisone and also some other medicines for congestion such as guaifenesin and Tylenol 3 for cough. We will also issue albuterol inhaler for as needed use at home. Patient states that her Trelegy inhaler has elapsed for the past couple of days but she will get a Trelegy inhaler sometime tomorrow at the pharmacy. Patient states that without her Trelegy inhaler she has a difficult time sleeping. . 09/14 02:14 Order name: Basic Metabolic Panel; Complete Time: 05:09/14 02:14 Order name: CBC with Diff; Complete Time: 05:11 09/14 02:14 Order name: LFT's; Complete Time: 05:09/14 02:14 Order name: Magnesium; Complete Time: 05:09/14 02:14 Order name: NT PRO-BNP; Complete Time: 05:09/14 02:14 Order name: PT-INR; Complete Time: 05:19 09/14 02:14 Order name: Troponin HS; Complete Time: :09/14 02:14 Order name: XRAY Chest (1 view) 09/14 02:14 Order name: EKG; Complete Time: 02:14 sp4 09/14 02:14 Order name: Cardiac monitoring; Complete Time: 02:37 sp4 09/14 02:14 Order name: EKG - Nurse/Tech; Complete Time: 03:10 sp4 09/14 02:14 Order name: Labs collected and sent; Complete Time: 02:37 sp4 09/14 02:14 Order name: O2 Per Protocol; Complete Time: 02:37 sp4 09/14 02:14 Order name: O2 Sat Monitoring; Complete Time: 02:37 sp4 09/14 02:56 Order name: Misc. Order: RECOLLECT ALL LABS; Complete Time: 05:28 rv1 EC:29 Rate is 89 beats/min. Rhythm is regular, Paced. Clinical impression: No evidence of sp4 ischemia. Interpreted by me. Administered Medications: 05:53 Drug: predniSONE PO 60 mg Route: PO; vc1 06:12 Follow up: Response: No adverse reaction; Marked relief of symptoms vc1 05:53 Drug: guaiFENesin PO Liquid 15 ml Route: PO; vc1 06:12 Follow up: Response: No adverse reaction; Marked relief of symptoms vc1 05:53 Drug: DuoNeb Nebulize (3:1) (2.5 mg - 0.5 mg) 3 ml Route: Nebulizer; vc1 06:12 Follow up: Response: No adverse reaction; Marked relief of symptoms vc1 05:53 Drug: Acetaminophen-Codeine PO (300 mg-30 mg) 2 tabs Route: PO; vc1 06:12 Follow up: Response: No adverse reaction; Marked relief of symptoms vc1 Disposition Summary: 09/14/22 05:40 Discharge Ordered Location: Home sp4 Problem: new sp4 Symptoms: have improved sp4 Condition: Stable sp4 Diagnosis - Dyspnea, unspecified sp4 - Upper respiratory congestion, chronic systolic heart failure sp4 Followup: sp4 - With: Juan Rodrigues MD - When: 24 Hours - Reason: Recheck today's complaints Discharge Instructions: - Discharge Summary Sheet sp4 - Shortness of Breath, Adult, [id number] sp4 Forms: - Patient Portal Instructions sp4 Prescriptions: - Ventolin HFA 90 mcg/actuation Inhalation HFA Aerosol Inhaler - inhale 1 puff by INHALATION route every 6 hours 1 puff every 6 hours as needed sp4 for shortness of breath, dispense with spacer; 1 unit; Refills: 0, Product Selection Permitted Signatures: Dispatcher KoryHoLizbet Harley RN RN vc1 Josephine Paulson rv1 Jacky Casper MD MD sp4 Corrections: (The following items were deleted from the chart) 06:12 02:14 IV Saline Lock ordered. sp4 vc1
[2022-09-14] MEDS ORDERED: IPRATROPIUM BROM 0.5MG/2.5ML ONE (05:56)
[2022-09-14] MEDS ORDERED: predniSONE 20 MG TAB ONE (05:56)
[2022-09-14] MEDS ORDERED: CODEINE 30MG/APAP 300MG TAB ONE (05:56)
[2022-09-14] MEDS ORDERED: ALBUTEROL 2.5 MG/3 ML NEB SOL ONE (05:56)
[2022-09-14] MEDS ORDERED: guaiFENesin 100 MG/5 ML UCUP ONE (05:56)
[2022-09-14 06:46] VITALS: TEMP 97.9
[2022-09-14 06:50] VITALS: BP 115/94; O2SAT 98
--- NOTE | 2022-09-14 10:50 | RAD REPORT ---
EXAM DESCRIPTION: XR Chest, 1 View CLINICAL HISTORY: The patient is 77 years old and is Female; CHEST PAIN TECHNIQUE: Frontal view of the chest. COMPARISON: No relevant prior studies available. FINDINGS: Lungs: Prominent interstitial markings which may indicate interstitial edema. Peribronch ial thickening. No consolidation. Pleural space: Unremarkable. No pneumothorax. Heart: Unremarkable. Mediastinum: Unremarkable. Bones/joints: Unremarkable. Tubes, lines and devices: Left-sided pacemaker/AICD. IMPRESSION: Prominent interstitial markings which may indicate interstitial edema. Peribronchial thi ckening. No consolidation. Electronically signed by: Santiago Mancia MD 09/14/2022 3:32 AM CDT Due to temporary technical issues with the PACS/Fluency reporting system, reports are being signed by the in house radiologists without review as a courtesy to insure prompt reporting. The interpreting radiologist is fully responsible for the content of the report.
--- NOTE | 2022-09-14 13:18 | EKG ---
Test Date: 2022-09-14 Test Time: 02:51:45 Power Station Operator: TAMIKO MEASUREMENT RESULTS: Intervals: Rate: 89 IA: 156 QRSD: 166 QT: 482 QTc: 586 [place]: P: 119 IA: 156 QRS: -76 T: 111 INTERPRETIVE STATEMENTS: AV dual-paced rhythm Biventricular pacemaker detected Abnormal ECG Compared to ECG 09/09/2022 23:22:43 No significant changes Electronically Signed On 09-14-22 13:17:36 CDT by Armond Moore
== END 2022-09-14 06:42 | disposition home or self-care (01) ==
LOC: ER 01:52
DX: J06.9 Acute upper respiratory infection, unspecified (principal); I50.22 Chronic systolic (congestive) heart failure; I48.91 Unspecified atrial fibrillation; Z79.01 Long term (current) use of anticoagulants; E11.22 Type 2 diabetes mellitus with diabetic chronic kidney disease; I12.9 Hypertensive chronic kidney disease with stage 1 through stage 4 chronic kidney disease, or unspecified chronic kidney disease; N18.4 Chronic kidney disease, stage 4 (severe); Z79.4 Long term (current) use of insulin; Z95.810 Presence of automatic (implantable) cardiac defibrillator; Z88.1 Allergy status to other antibiotic agents
CPT/HCPCS: 93005; 85025; 80048; 36415; 83735; 85610; 80076; 84484; 83880; 71045; 94640; 99284; J7512; J7613; J7644

== ENCOUNTER 2022-09-16 02:58 | Emergency (ER) | payer OTHER ==
--- OUTSIDE RECORDS SUMMARY | 2022-09-16 03:07 | XMS REPORT | Continuity of Care Document ---
:1945 Author Organization [facility] t Address [address] [place] [address] [address] [place] [address] Care Team Providers Name Role Phone CAMRON ARIAS Primary Care Physician Unavailable Elaine Lamb Attending Clinician Unavailable FAM CRAIG Attending Clinician Unavailable SILVERIO ADAM Attending Clinician Unavailable SRIRAM HEATH Attending Clinician Unavailable Kumar SQUIRES, Sriram Attending Clinician Doctor Unassigned, Elroy Attending Clinician Unavailable 2, [facility] Attending [...] IBIKUNLE, FOLUSHO F Attending Clinician Unavailable Ibikunle COMMERCIAL REPRESENTATIVE, Folusho F Attending Clinician Major SQUIRES, Clare Combs Attending Clinician CLARE GONSALVES Attending Clinician Unavailable Tommy BURK, Luis Alberto Attending Clinician Unavailable Mitchell Garcia MD Attending Clinician Po, [facility] Main Attending Clinician Unavailable Willian SQUIRES, Ortega Lester Attending Clinician [phone] ORTEGA DORSEY Attending Clinician Unavailable Cielo Bautista RN Attending Clinician Unavailable Ananya Gomez DO Attending Clinician ANANYA GOMEZ Attending Clinician Unavailable JENNIE BACA Attending Clinician Unavailable Jennie Lowery Attending Clinician ARGENIS BARNETT Attending Clinician Unavailable Damien Hugo MD Attending Clinician Soni Hunter MD Attending Clinician Argenis Barnett MD Attending Clinician Esperanza Cronin RN Attending Clinician Unavailable ANJU GONZALES Attending Clinician Unavailable Hudson Wolfe MD Attending Clinician Anuj Gonzales MD Attending Clinician Misael Castro MD Attending Clinician GRAMM, SHANTEL A Attending Clinician Unavailable Gramm COMMERCIAL REPRESENTATIVE, Shantel A Attending Clinician Sabina Barba MD Attending Clinician SABINA BARBA Attending Clinician Unavailable Ericka Chen Attending Clinician ERICKA ACKERMAN Attending Clinician Unavailable Lab, Ang - Db Attending Clinician Unavailable VIRI PRICE Attending Clinician Unavailable Lab, [facility] Fam Pob I Attending Clinician Unavailable Jose COMMERCIAL REPRESENTATIVE, Karla Attending Clinician Dee COMMERCIAL REPRESENTATIVE, Viri Martinez Attending Clinician Teri Samano RN Attending Clinician Unavailable ERICH PANTOJA Attending Clinician Unavailable Pacemaker/Icd, [facility] Attending Clinician Unavailable Omole COMMERCIAL REPRESENTATIVE, Min Godinez Attending Clinician [phone] OMOLE, MIN GRETCHEN Attending Clinician Unavailable Nita Degroot DO Attending Clinician NITA DEGROOT Attending Clinician Unavailable NITA DEGROOT Attending Clinician Unavailable Provider, [facility] Attending Clinician Unavailable Anedevante COMMERCIAL REPRESENTATIVE, Monica Attending Clinician MONICA MCCORMICK Attending Clinician Unavailable Calli BURK, Jo More Attending Clinician Unavailable Kirt Thomason DO Attending Clinician Gab Servin MD Attending Clinician GAB SERVIN Attending Clinician Unavailable Cielo Henry RN Attending Clinician Fam Craig MD Attending Clinician [phone] Edgar Cortés MD Attending Clinician [phone] EDGAR CORTÉS Attending Clinician Unavailable Lubna Lal MD Attending Clinician LUBNA LAL Attending Clinician Unavailable , [facility] Echo Room 1 - Attending Clinician Unavailable Visit, [facility] Nurse Attending Clinician Unavailable Dago Gross MDHKaren Attending Clinician Pc, [facility] Vascular Room 1 - Attending Clinician Unavailable ALEXUS RAMOS Attending Clinician Unavailable ALEXUS RAMOS Attending Clinician Unavailable DAGO GROSSHKaren Attending Clinician Unavailable EVAN MARTIN Attending Clinician Unavailable EKATERINA BOUDREAUX Attending Clinician Unavailable Nate COMMERCIAL REPRESENTATIVE, Madeleine Strauss Attending Clinician Emily Lezama Attending [...] Effective Date Expiration Date Lucy toribio BLAKE/SANDRA [id number] 2019 MEDICARE ADVANTAGE 00:00:00 HUMANA CHOICE [id number] 2022 00:00:00 Problems Condition Condition Condition Status Onset Resolution Last Treating Co mments Source Name Details Category Date Date Treatment Clinician Date Pulmonary Pulmonary Disease Active 2021-02 Uni vers hypertensi hypertensi 2-31 it y of on on 00:00: [address] Branch Presence Presence Disease Active 2021-02 Unive rs of cardiac of cardiac 2-30 it y of resynchron resynchron [place] ization ization 00 Medical therapy therapy Branch defibrilla defibrilla tor tor (DIRECTOR OF RETAIL ANALYTICS-D) (DIRECTOR OF RETAIL ANALYTICS-D) SOB SOB Disease Active 2021-02 Univers (shortness (shortness 2-29 it y of of breath) of breath) 00:00: [place] 00 Medical [place] Atrial Atrial Disease Active Univers tachycardi tachycardi 2-25 it y of a a 00:00: [address] Branch Dizziness Dizziness Disease Active Uni [...] Added automatic ally from request for surgery [id number] Refusal of Refusal of Disease Active 2020-02 U nivers blood blood 2-13 ity of transfusio transfusio 00:00: [place] as ns as 00 Medical patient is patient is Br anch [employer] Witness Osteopenia Osteopenia Disease Active 2020-02 U [...] rs LFTs LFTs 5- ity of 00:00: [place] [facility] Multiple Multiple Disease Active Overview: [...] colon 5-03 ity of polyps polyps 00:00: [address] Branch History of History of Disease Active U nivers pulmonary pulmonary 2-17 ity of embolism embolism 00:00: [place] [facility] Branch ICD ICD Disease Active Univers (implantab (implantab 2-17 it y of le le 00:00: [place] cardiovert cardiovert 00 Me dical er-defibri er-defibri Br anch llator) in llator) in place place Atrial Atrial Disease Active Univers fibrillati fibrillati 1-16 it y of on on 00:00: [address] Branch Syncope Syncope Disease Active Univers 1-15 ity of 00:00: [place] [facility] Branch DM DM Disease Active Univers (diabetes (diabetes 8-31 ity of mellitus), mellitus), 00:00: [place] type 2 type 2 00 Medical with renal with renal Br anch complicati complicati ons ons Anxiety Anxiety Disease Active Univers ity of [facility] CKD CKD Disease Active Univers (chronic (chronic ity of kidney kidney [place] disease) disease) Medica l stage 4, stage 4, Branch GFR 15-29 GFR 15-29 ml/min ml/min Epilepsy Epilepsy Disease Active Unive rs ity of [facility] Esophageal Esophageal Disease Active U nivers reflux reflux ity of [facility] HLD HLD Disease Active Univers (hyperlipi (hyperlipi it y of demia) demia) [facility] HTN HTN Disease Active Univers (hypertens (hypertens it y of ion) ion) [place] [facility] Non-ischem Non-ischem Disease Active U [...] History SDOH Social Unive rsity of Connections [facility] Branch History SDOH Social Unive rsity of Connections [facility] Medical Branch History SDOH Social Unive rsity of Connections [place] [facility] Membership Branch History SDOH Social Unive rsity of [facility] Medical Meetings Branch Exposure to 2022-03-12 2022-03-22 Not sure University of SARS-CoV-2 (event) 00:00:00 07:50:00 [facility] Branch Alcohol intake 2022-03-14 2022-03-14 Current University of 00:00:00 00:00:00 non-drinker of [facility] alcohol Branch (finding) History SDOH 2022-02-17 2022-02-17 1 University o f Alcohol Frequency 00:00:00 00:00:00 [facility] edical Branch History SDOH Social 2022-02-17 2022-02-17 5 Unive rsity of Connections Phone 00:00:00 00:00:00 [facility] edical Branch History SDKS Social 2022-02-17 2022-02-17 98 Unive rsity of Connections Living 00:00:00 00:00:00 [place] [facility] History SDOH 2022-02-17 2022-02-17 7 University o f Physical Activity 00:00:00 00:00:00 [facility] edical DPW Branch History SDKS 2022-02-17 2022-02-17 1 University o f Physical Activity 00:00:00 00:00:00 [place] M edical MPS Branch History SDKS 2022-02-17 2022-02-17 5 University o f Financial 00:00:00 00:00:00 [place] [facility] History SDOH Food 2022-02-17 2022-02-17 1 Univers ity of Worry 00:00:00 00:00:00 [place] [facility] History SDOH Food 2022-02-17 2022-02-17 1 Univers ity of Scarcity 00:00:00 00:00:00 [place] [facility] History SDKS 2022-02-17 2022-02-17 2 University o f Transport Med 00:00:00 00:00:00 [place] Medic al Branch History [facility] 2022-02-17 2022-02-17 2 University o f Transport Non-Med 00:00:00 00:00:00 [facility] edical Branch Tobacco use and 2022-02-16 2022-02-16 Smokeless Universit y of exposure 00:00:00 00:00:00 tobacco non-user [facility] dical Branch Tobacco Comment 2022-02-16 2022-02-16 exposed to "a Univer sity of 00:00:00 00:00:00 lot" of passive [place] [facility] ical smoke from Branch Sex [birth year] At [birth year] Universit y of 00:00:00 00:00:00 [facility] Smoking Status Start Date Stop Date Source Never smoked tobacco [facility] Medications Ordered Filled Start Stop Current Ordering Indication Dosage Frequency Signature Comments Components Source Medication Medication Date Date Medication? Clinician (SIG) Name Name metoprolol Yes [id number] 50mg Take 1 Univers succinate 2-07 tablet by ity o f XL 50 mg 24 00:00: mouth 2 [place] hr tablet 00 (two) Medical times Branch daily. amiodarone Yes [id number] 200mg Take 1 Univers 200 mg 1-26 tablet by ity of tablet 00:00: mouth [place] 00 daily. Medical Branch amiodarone Yes [id number] 200mg Take 1 Univers 200 mg 1-26 tablet by ity of tablet 00:00: mouth [place] 00 daily. Medical Branch amiodarone Yes [id number] 200mg Take 1 Univers 200 mg 1-26 tablet by ity of tablet 00:00: mouth [place] 00 daily. Medical Branch amiodarone Yes [id number] 200mg Take 1 Univers 200 mg 1-26 tablet by ity of tablet 00:00: mouth [place] 00 daily. Medical Branch amiodarone Yes [id number] 200mg Take 1 Univers 200 mg 1-26 [...] at 6am and 6pm furosemide 2022- Yes [id number] 40mg Take 1 Univers 40 mg 1-10 tablet by ity of tablet 00:00: mouth [place] 00 every Medical morning Branch and evening. metoprolol Yes [id number] 50mg Take 1 Univers succinate 1-10 tablet by ity o f XL 50 mg 24 00:00: mouth 2 [place] hr tablet 00 (two) Medical times Branch daily. apixaban Yes 1358 2.5mg Take 1 Univer s (ELIQUIS) 1-10 tablet by ity o f 2.5 mg 00:00: mouth 2 [place] tablet 00 (two) Medical times Branch daily. Indication s: atrial fibrillati on furosemide Yes [id number] 40mg Take 1 Univers 40 mg 1-10 tablet by ity of tablet 00:00: mouth [place] 00 every Medical morning Branch and evening. metoprolol 2022-0 Yes [id number] 50mg Take 1 Univers succinate 1-10 tablet [...] s: atrial fibrillati on furosemide 0 Yes [id number] 40mg Take 1 Univers 40 mg 1-10 tablet by ity of tablet 00:00: mouth [place] 00 every Medical morning Branch and evening. metoprolol 2022-0 Yes [id number] 50mg Take 1 Univers succinate 1-10 tablet [...] s: atrial fibrillati on furosemide 0 Yes [id number] 40mg Take 1 Univers 40 mg 1-10 tablet by ity of tablet 00:00: mouth [place] 00 every Medical morning Branch and evening. metoprolol 2022-0 Yes [id number] 50mg Take 1 Univers succinate 1-10 tablet [...] s: atrial fibrillati on furosemide 2022-0 Yes [id number] 40mg Take 1 Univers 40 mg 1-10 tablet by ity of tablet 00:00: mouth [place] 00 every Medical morning Branch and evening. metoprolol 2022-0 Yes [id number] 50mg Take 1 Univers succinate 1-10 tablet [...] s: atrial fibrillati on furosemide 2022-0 Yes [id number] 40mg Take 1 Univers 40 mg 1-10 tablet by ity of tablet 00:00: mouth [place] 00 every Medical morning Branch and evening. metoprolol 2022-0 Yes [id number] 50mg Take 1 Univers succinate 1-10 tablet [...] s: atrial fibrillati on furosemide 2022-0 Yes [id number] 40mg Take 1 Univers 40 mg 1-10 tablet by ity of tablet 00:00: mouth [place] 00 every Medical morning Branch and evening. metoprolol 2022-0 Yes [id number] 50mg Take 1 Univers succinate 1-10 tablet [...] s: atrial fibrillati on furosemide 2022-0 Yes [id number] 40mg Take 1 Univers 40 mg 1-10 tablet by ity of tablet 00:00: mouth [place] 00 every Medical morning Branch and evening. apixaban 2022-0 Yes 1358 2.5mg Take 1 Univer s (ELIQUIS) 1-10 tablet by ity o f 2.5 mg 00:00: mouth 2 [place] tablet 00 (two) Medical times Branch daily. Indication s: atrial fibrillati on furosemide 2023-0 Yes [id number] 40mg Take 1 Univers 40 mg 1-10 tablet by ity of tablet 00:00: mouth [place] 00 every Medical morning Branch and evening. apixaban Yes 1358 2.5mg Take 1 Univer s (ELIQUIS) 1-10 tablet by ity o f 2.5 mg 00:00: mouth 2 [place] tablet 00 (two) Medical times Branch daily. Indication s: atrial fibrillati on metoprolol 202- No [id number] 50mg Take 1 Univers succinate 1-10 02-06 tablet by ity of XL 50 mg 24 00:00: 00:00 mouth 2 [place] hr tablet 00 :00 (two) Medical times Branch daily. insulin NPH Yes [id number] 20U inject 20 Univers 100 unit/mL 1-02 Units ity of injection 00:00: under the [place] 00 skin every Medical morning. Branch insulin NPH Yes [id number] 20U inject 20 Univers 100 unit/mL 1-02 Units ity of injection 00:00: under the [place] 00 skin every Medical morning. Branch insulin NPH Yes [id number] 20U inject 20 Univers 100 unit/mL 1-02 Units ity of injection 00:00: under the [place] 00 skin every Medical morning. Branch insulin NPH Yes [id number] 20U inject 20 Univers 100 unit/mL 1-02 Units ity of injection 00:00: under the [place] 00 skin every Medical morning. Branch insulin NPH Yes [id number] 20U inject 20 Univers 100 unit/mL 1-02 Units ity of injection 00:00: under the [place] 00 skin every Medical morning. Branch insulin NPH Yes [id number] 20U inject 20 Univers 100 unit/mL 1-02 Units ity of injection 00:00: under the [place] 00 skin every Medical morning. Branch insulin NPH Yes [id number] 20U inject 20 Univers 100 unit/mL 1-02 Units ity of injection 00:00: under the [place] 00 skin every Medical morning. Branch insulin NPH Yes [id number] 20U inject 20 Univers 100 unit/mL 1-02 Units ity of injection 00:00: under the [place] 00 skin every Medical morning. Branch insulin NPH 2022-0 Yes [id number] 20U inject 20 Univers 100 unit/mL 1-02 Units ity of injection 00:00: under the [place] 00 skin every Medical morning. Branch insulin NPH 2022-0 Yes [id number] 20U inject 20 Univers 100 unit/mL 1-02 Units ity of injection 00:00: under the [place] 00 skin every Medical morning. Branch insulin NPH 2022-0 Yes [id number] 20U inject 20 Univers 100 unit/mL 1-02 [...] 03:00: First dose [place] 00 on Sat [facility] 02/18/22 Branch at 2100, Until Discontinu ed, Routine insulin NPH 2022-0 Yes [id number] 15U inject 15 Univers 100 unit/mL 1-01 Units ity of injection 00:00: under the [place] 00 skin at Medical bedtime. Branch polyethylen 2022-0 Yes [id number] 17g Take 1 Univers e glycol 1- Packet by ity of 3350 17 00:00: mouth [place] gram powder 00 every 24 Medi sandra (twenty-fo Branch ur) hours as needed for Constipati on. insulin NPH 2022-0 Yes [id number] 15U inject 15 Univers 100 unit/mL 1-01 Units ity of injection 00:00: under the [place] 00 skin at Medical bedtime. Branch polyethylen 0 Yes [id number] 17g Take 1 Univers e glycol 1-01 Packet by ity of 3350 17 00:00: mouth [place] gram powder 00 every 24 Medi sandra (twenty-fo Branch ur) hours as needed for Constipati on. insulin NPH Yes [id number] 15U inject 15 Univers 100 unit/mL 1-01 Units ity of injection 00:00: under the [place] 00 skin at Medical bedtime. Branch polyethylen 0 Yes [id number] 17g Take 1 Univers e glycol 1-01 Packet by ity of 3350 17 00:00: mouth [place] gram powder 00 every 24 Medi sandra (twenty-fo Branch ur) hours as needed for Constipati on. insulin NPH Yes [id number] 15U inject 15 Univers 100 unit/mL 1-01 Units ity of injection 00:00: under the [place] 00 skin at Medical bedtime. Branch polyethylen 0 Yes [id number] 17g Take 1 Univers e glycol 1-01 Packet by ity of 3350 17 00:00: mouth [place] gram powder 00 every 24 Medi sandra (twenty-fo Branch ur) hours as needed for Constipati on. insulin NPH Yes [id number] 15U inject 15 Univers 100 unit/mL 1-01 Units ity of injection 00:00: under the [place] 00 skin at Medical bedtime. Branch polyethylen 0 Yes [id number] 17g Take 1 Univers e glycol 1-01 Packet by ity of 3350 17 00:00: mouth [place] gram powder 00 every 24 Medi sandra (twenty-fo Branch ur) hours as needed for Constipati on. insulin NPH Yes [id number] 15U inject 15 Univers 100 unit/mL 1-01 Units ity of injection 00:00: under the [place] 00 skin at Medical bedtime. Branch polyethylen 0 Yes [id number] 17g Take 1 Univers e glycol 1-01 Packet by ity of 3350 17 00:00: mouth [place] gram powder 00 every 24 Medi sandra (twenty-fo Branch ur) hours as needed for Constipati on. insulin NPH Yes [id number] 15U inject 15 Univers 100 unit/mL 1-01 Units ity of injection 00:00: under the [place] 00 skin at Medical bedtime. Branch polyethylen 2022-0 Yes [id number] 17g Take 1 Univers e glycol 1-01 Packet by ity of 3350 17 00:00: mouth [place] gram powder 00 every 24 Medi sandra (twenty-fo Branch ur) hours as needed for Constipati on. insulin NPH 2022-0 Yes [id number] 15U inject 15 Univers 100 unit/mL 1-01 Units ity of injection 00:00: under the [place] 00 skin at Medical bedtime. Branch polyethylen 2022-0 Yes [id number] 17g Take 1 Univers e glycol 1-01 Packet by ity of 3350 17 00:00: mouth [place] gram powder 00 every 24 Medi sandra (twenty-fo Branch ur) hours as needed for Constipati on. insulin NPH 2022-0 Yes [id number] 15U inject 15 Univers 100 unit/mL 1-01 Units ity of injection 00:00: under the [place] 00 skin at Medical bedtime. Branch polyethylen 2022-0 Yes [id number] 17g Take 1 Univers e glycol 1-01 Packet by ity of 3350 17 00:00: mouth [place] gram powder 00 every 24 Medi sandra (twenty-fo Branch ur) hours as needed for Constipati on. insulin NPH 2022-0 Yes [id number] 15U inject 15 Univers 100 unit/mL 1-01 Units ity of injection 00:00: under the [place] 00 skin at Medical bedtime. Branch polyethylen 2022-0 Yes [id number] 17g Take 1 Univers e glycol 1-01 Packet by ity of 3350 17 00:00: mouth [place] gram powder 00 every 24 Medi sandra (twenty-fo Branch ur) hours as needed for Constipati on. insulin NPH 2022-0 Yes [id number] 15U inject 15 Univers 100 unit/mL 1-01 Units ity of injection 00:00: under the [place] 00 skin at Medical bedtime. Branch polyethylen 2022-0 Yes [id number] 17g Take 1 Univers e glycol 1-01 Packet by ity of 3350 17 00:00: mouth [place] gram powder 00 every 24 Medi sandra (twenty-fo Branch ur) hours as needed for Constipati on. furosemide 2022- No [id number] 40mg Take 1 Univers 40 mg 02-19 tablet by ity of tablet 00:00: 05:59 mouth [place] 00 :00 every Medical morning Branch and evening for 30 days. furosemide 2022- No [id number] 40mg Take 1 Univers 40 mg 02-19 tablet by ity of tablet 00:00: 05:59 mouth [place] 00 :00 every Medical morning Branch and evening for 30 days. furosemide 2022- No [id number] 40mg Take 1 Univers 40 mg 02-19 tablet by ity of tablet 00:00: 00:00 mouth [place] 00 :00 every Medical morning Branch and evening for 30 days. furosemide 2022- No [id number] 40mg Take 1 Univers 40 mg 02-19 [...] Until Discontinu ed, Routine sulfur 2021-02- No [id number] 5mL 5 mL, Un araseli hexafluorid 02-17 9103 Intravenou i ty of e microsphr 15:00: 15:00 s, ONCE, 1 [place] (LUMASON) 00 :00 dose, On Medica l injection 5 Sun Branch mL 02/17/22 at 0900, Routine
team member approving Restricted medication : KUMARSRIRAM polyethylen 2021-02 Yes 17g 17 g, Unive rs e glycol 2-30 Oral, ity of 3350 powder 05:09: [id number], [place] 17 g 36 Starting Medical on [place] Branch 02/16/22 at 2309, Until Discontinu ed, Routine, Constipati on phenytoin 2021-02 Yes 200mg 200 mg, Univ ers Extended 2-30 Oral, QHS, ity o f (DILANTIN 03:00: First dose [place] KAPSEAL) 00 on [facility] Medical capsule 200 02/16/22 Bran ch mg at 2100, Until Discontinu ed, Routine insulin NPH 2021-02 Yes 15U 15 Units, U nivers (HUMULIN N) 2-30 Subcutaneo it y of injection 03:00: us, QHS, [place] 15 Units 00 First dose Medic al on [facility] Branch 02/16/22 at 2100, Until Discontinu ed, Routine atorvastati 2021-02 Yes 40mg 40 mg, Univ ers n (LIPITOR) 2-30 Oral, QHS, it y of tablet 40 03:00: First dose [place] mg 00 on [facility] 02/16/22 Branch at 2100, Until Discontinu ed, Routine levETIRAcet 2021-02 Yes 500mg 500 mg, Un araseli am (KEPPRA) 2-30 Oral, BID, it y of tablet 500 02:00: First dose [place] mg 00 on [facility] 02/16/22 Branch at 2000, Until Discontinu ed, Routine apixaban 2021-02 Yes 1358 5mg 5 mg, Univers (ELIQUIS) 2-30 Oral, BID, ity of tablet 5 mg 02:00: First dose [place] 00 on [facility] 02/16/22 Branch at 2000, Until Discontinu ed, Routine
Indicatio ns: Non-Valvul ar Atrial Fibrillati on furosemide 2021-02- No 40mg 40 mg, Univ ers (LASIX) 202-19 Slow IV ity of injection 02:00: 18:11 Push, [place] 40 mg 00 :42 Q12H, Medical First dose Branch on [facility] 02/16/22 at 2000, Until Discontinu ed, Routine metoprolol 2021-02- No 50mg 50 mg, Univ ers succinate 202-18 Oral, BID, ity of XL (TOPROL 02:00: 14:37 First dose [place] XL) tablet 00 :05 on [facility] Medical 50 mg 02/16/22 Branch at [...] Branch 02/16/22 at 1100, JACQUI semaglutide Yes [id number] .25mg inject Univers (OZEMPIC) 8-17 0.25 mg ity of 0.25 mg or 00:00: under the [place] 0.5 mg(2 00 skin Medical mg/1.5 mL) weekly. Branch PnIj semaglutide Yes [id number] .25mg inject Univers (OZEMPIC) 8-17 0.25 mg ity of 0.25 mg or 00:00: under the [place] 0.5 mg(2 00 skin Medical mg/1.5 mL) weekly. Branch PnIj semaglutide Yes [id number] .25mg inject Univers (OZEMPIC) 8-17 0.25 mg ity of 0.25 mg or 00:00: under the [place] 0.5 mg(2 00 skin Medical mg/1.5 mL) weekly. Branch PnIj semaglutide Yes [id number] .25mg inject Univers (OZEMPIC) 8-17 0.25 mg ity of 0.25 mg or 00:00: under the [place] 0.5 mg(2 00 skin Medical mg/1.5 mL) weekly. Branch PnIj semaglutide 0 Yes [id number] .25mg inject Univers (OZEMPIC) 8-17 0.25 mg ity of 0.25 mg or 00:00: under the [place] 0.5 mg(2 00 skin Medical mg/1.5 mL) weekly. Branch PnIj semaglutide 0 Yes [id number] .25mg inject Univers (OZEMPIC) 8-17 0.25 mg ity of 0.25 mg or 00:00: under the [place] 0.5 mg(2 00 skin Medical mg/1.5 mL) weekly. Branch PnIj semaglutide 0 Yes [id number] .25mg inject Univers (OZEMPIC) 8-17 0.25 mg ity of 0.25 mg or 00:00: under the [place] 0.5 mg(2 00 skin Medical mg/1.5 mL) weekly. Branch PnIj semaglutide Yes [id number] .25mg inject Univers (OZEMPIC) 8-17 0.25 mg ity of 0.25 mg or 00:00: under the [place] 0.5 mg(2 00 skin Medical mg/1.5 mL) weekly. Branch PnIj semaglutide Yes [id number] .25mg inject Univers (OZEMPIC) 8-17 0.25 mg ity of 0.25 mg or 00:00: under the [place] 0.5 mg(2 00 skin Medical mg/1.5 mL) weekly. Branch PnIj semaglutide Yes [id number] .25mg inject Univers (OZEMPIC) 8-17 0.25 mg ity of 0.25 mg or 00:00: under the [place] 0.5 mg(2 00 skin Medical mg/1.5 mL) weekly. Branch PnIj semaglutide 2021-0 Yes [id number] .25mg inject Univers (OZEMPIC) 8-17 0.25 mg ity of 0.25 mg or 00:00: under the [place] 0.5 mg(2 00 skin Medical mg/1.5 mL) weekly. Branch PnIj semaglutide Yes [id number] .25mg inject Univers (OZEMPIC) 8-17 0.25 mg ity of 0.25 mg or 00:00: under the [place] 0.5 mg(2 00 skin Medical mg/1.5 mL) weekly. Branch PnIj semaglutide 2021-0 Yes [id number] .25mg inject Univers (OZEMPIC) 8-17 0.25 mg ity of 0.25 mg or 00:00: under the [place] 0.5 mg(2 00 skin Medical mg/1.5 mL) weekly. Branch PnIj semaglutide 2021-0 Yes [id number] .25mg inject Univers (OZEMPIC) 8-17 0.25 mg [...] capsules in the evening. amLODIPine 2-0 Yes [id number] 10mg Take 1 U nivers 10 mg 6-13 tablet by ity of tablet 00:00: mouth [place] 00 daily. Medical Branch amLODIPine 2-0 Yes [id number] 10mg Take 1 U nivers 10 mg 6-13 tablet by ity of tablet 00:00: mouth [place] 00 daily. Medical Branch amLODIPine 2-0 Yes [id number] 10mg Take 1 U nivers 10 mg 6-13 tablet by ity of tablet 00:00: mouth [place] 00 daily. Medical Branch amLODIPine 2-0 Yes [id number] 10mg Take 1 U nivers 10 mg 6-13 tablet by ity of tablet 00:00: mouth [place] 00 daily. Medical Branch amLODIPine 2-0 Yes [id number] 10mg Take 1 U nivers 10 mg 6-13 tablet by ity of tablet 00:00: mouth [place] 00 daily. Medical Branch amLODIPine 2021-0 2022- No [id number] 10mg Take 1 Univers 10 mg 6-13 01-10 tablet by ity of tablet 00:00: 00:00 mouth [place] 00 :00 daily. Medical Branch amLODIPine 2021-0 2022- No [id number] 10mg Take 1 Univers 10 mg 6-13 [...] s: atrial fibrillati on OXCARBAZEPI 2-0 Yes [id number] TAKE 1 Univers NE 150 mg 3-08 TABLET 2 X ity of tablet 00:00: A DAY FOR [place] 00 1 WEEK Medical THEN 2 Branch TABS 2X DAY FOR 1 WEEK 3 TABLES 2XADAY OXCARBAZEPI 2022-0 Yes [id number] TAKE 1 Univers [place] 150 mg 3-08 TABLET 2 X ity of tablet 00:00: A DAY FOR [place] 00 1 WEEK Medical THEN 2 Branch TABS 2X DAY FOR 1 WEEK 3 TABLES 2XADAY OXCARBAZEPI 2022-0 Yes [id number] TAKE 1 Univers NE 150 mg 3-08 TABLET 2 X ity of tablet 00:00: A DAY FOR [place] 00 1 WEEK Medical THEN 2 Branch TABS 2X DAY FOR 1 WEEK 3 TABLES 2XADAY OXCARBAZEPI 2022-0 Yes [id number] TAKE 1 Univers NE 150 mg 3-08 TABLET 2 X ity of tablet 00:00: A DAY FOR [place] 1 WEEK Medical THEN 2 Branch TABS 2X DAY FOR 1 WEEK 3 TABLES 2XADAY OXCARBAZEPI 2022-0 Yes [id number] TAKE 1 Univers NE 150 mg 3-08 TABLET 2 X ity of tablet 00:00: A DAY FOR [place] 1 WEEK Medical THEN 2 Branch TABS 2X DAY FOR 1 WEEK 3 TABLES 2XADAY OXCARBAZEPI 2022-0 Yes [id number] TAKE 1 Univers NE 150 mg 3-08 TABLET 2 X ity of tablet 00:00: A DAY FOR [place] 1 WEEK Medical THEN 2 Branch TABS 2X DAY FOR 1 WEEK 3 TABLES 2XADAY OXCARBAZEPI 2022-0 Yes [id number] TAKE 1 Univers NE 150 mg 3-08 TABLET 2 X ity of tablet 00:00: A DAY FOR [place] 00 1 WEEK Medical THEN 2 Branch TABS 2X DAY FOR 1 WEEK 3 TABLES 2XADAY OXCARBAZEPI 2022-0 Yes [id number] TAKE 1 Univers NE 150 mg 3-08 TABLET 2 X ity of tablet 00:00: A DAY FOR [place] 00 1 WEEK Medical THEN 2 Branch TABS 2X DAY FOR 1 WEEK 3 TABLES 2XADAY OXCARBAZEPI 2022-0 Yes [id number] TAKE 1 Univers NE 150 mg 3-08 TABLET 2 X ity of tablet 00:00: A DAY FOR [place] 00 1 WEEK Medical THEN 2 Branch TABS 2X DAY FOR 1 WEEK 3 TABLES 2XADAY OXCARBAZEPI 2022-0 Yes [id number] TAKE 1 Univers NE 150 mg 3-08 TABLET 2 X ity of tablet 00:00: A DAY FOR [place] 00 1 WEEK Medical THEN 2 Branch TABS 2X DAY FOR 1 WEEK 3 TABLES 2XADAY OXCARBAZEPI 2022-0 Yes [id number] TAKE 1 Univers NE 150 mg 3-08 TABLET 2 X ity of tablet 00:00: A DAY FOR [place] 1 WEEK Medical THEN 2 Branch TABS 2X DAY FOR 1 WEEK 3 TABLES 2XADAY OXCARBAZEPI 2022-0 Yes [id number] TAKE 1 Univers NE 150 mg 3-08 TABLET 2 X ity of tablet 00:00: A DAY FOR [place] 1 WEEK Medical THEN 2 Branch TABS 2X DAY FOR 1 WEEK 3 TABLES 2XADAY OXCARBAZEPI 2022-0 Yes [id number] TAKE 1 Univers NE 150 mg 3-08 TABLET 2 X ity of tablet 00:00: A DAY FOR [place] 1 WEEK Medical THEN 2 Branch TABS 2X DAY FOR 1 WEEK 3 TABLES 2XADAY OXCARBAZEPI 2022-0 Yes [id number] TAKE 1 Univers NE 150 mg 3-08 [...] 6am and 6pm insulin NPH 0 Yes [id number] 10U inject Univers (NOVOLIN N 04-13 10-15 ity of NPH U-100 00:00: Units [place] INSULIN) 00 under the Medica l 100 unit/mL skin every Br anch injection evening. insulin NPH Yes [id number] 10U inject Univers (NOVOLIN N 04-13 10-15 ity of NPH U-100 00:00: Units [place] INSULIN) 00 under the Medica l 100 unit/mL skin every Br anch injection evening. insulin NPH Yes [id number] 10U inject Univers (NOVOLIN N 04-13 10-15 ity of NPH U-100 00:00: Units [place] INSULIN) 00 under the Medica l 100 unit/mL skin every Br anch injection evening. insulin NPH 2022- No [id number] 10U inject Univers (NOVOLIN N 04-13 10-15 ity of NPH U-100 00:00: 00:00 Units [place] INSULIN) 00 :00 under the Medica l 100 unit/mL skin every Br anch injection evening. furosemide 0 Yes [id number] 20mg Take 1 Univers 20 mg 1-27 tablet by ity of tablet 00:00: mouth 00 daily. Medical Branch levETIRAcet 2021-0 Yes [id number] 500mg Take 1 Univers am 500 mg 1-27 tablet by ity o f tablet 00:00: mouth 2 00 (two) Medical times Branch daily. furosemide 2021-0 Yes [id number] 20mg Take 1 Univers 20 mg 1-27 tablet by ity of tablet 00:00: mouth [place] 00 daily. Medical Branch levETIRAcet 2021-0 Yes [id number] 500mg Take 1 Univers am 500 mg 1-27 tablet by ity o f tablet 00:00: mouth 2 [place] 00 (two) Medical times Branch daily. furosemide 2022-0 Yes [id number] 20mg Take 1 Univers 20 mg 1-27 tablet by ity of tablet 00:00: mouth 00 daily. Medical Branch levETIRAcet 2021-0 Yes [id number] 500mg Take 1 Univers am 500 mg 1-27 tablet by ity o f tablet 00:00: mouth (two) Medical times Branch daily. levETIRAcet 2021-0 Yes [id number] 500mg Take 1 Univers am 500 mg 1-27 tablet by ity o f tablet 00:00: mouth (two) Medical times Branch daily. levETIRAcet 2021-0 Yes [id number] 500mg Take 1 Univers am 500 mg 1-27 tablet by ity o f tablet 00:00: mouth (two) Medical times Branch daily. levETIRAcet 2021-0 Yes [id number] 500mg Take 1 Univers am 500 mg 1-27 tablet by ity o f tablet 00:00: mouth (two) Medical times Branch daily. levETIRAcet 2021-0 Yes [id number] 500mg Take 1 Univers am 500 mg 1-27 tablet by ity o f tablet 00:00: mouth (two) Medical times Branch daily. levETIRAcet 2021-0 Yes [id number] 500mg Take 1 Univers am 500 mg 1-27 tablet by ity o f tablet 00:00: mouth (two) Medical times Branch daily. levETIRAcet 2021-0 Yes [id number] 500mg Take 1 Univers am 500 mg 1-27 tablet by ity o f tablet 00:00: mouth (two) Medical times Branch daily. levETIRAcet 2021-0 Yes [id number] 500mg Take 1 Univers am 500 mg 1-27 tablet by ity o f tablet 00:00: mouth (two) Medical times Branch daily. levETIRAcet 2-0 Yes [id number] 500mg Take 1 Univers am 500 mg 1-27 tablet by ity o f tablet 00:00: mouth (two) Medical times Branch daily. levETIRAcet 2-0 Yes [id number] 500mg Take 1 Univers am 500 mg 1-27 tablet by ity o f tablet 00:00: mouth 2 [place] 00 (two) Medical times Branch daily. levETIRAcet 2021-0 Yes [id number] 500mg Take 1 Univers am 500 mg 1-27 tablet by ity o f tablet 00:00: mouth (two) Medical times Branch daily. levETIRAcet 2021-0 Yes [id number] 500mg Take 1 Univers am 500 mg 1-27 tablet by ity o f tablet 00:00: mouth 2 (two) Medical times Branch daily. furosemide 2021-0 3- No [id number] 20mg Take 1 Univers 20 mg 1-27 02-19 tablet by ity of tablet 00:00: 00:00 mouth [place] 00 :00 daily. Medical Branch pantoprazol 0 Yes [id number] 40mg Take 1 Univers e 40 mg EC 1-21 tablet by ity of tablet 00:00: mouth 00 daily. Medical Branch pantoprazol 0 Yes [id number] 40mg Take 1 Univers e 40 mg EC 1-21 tablet by ity of tablet 00:00: mouth 00 daily. Medical Branch pantoprazol 0 Yes [id number] 40mg Take 1 Univers e 40 mg EC 1-21 tablet by ity of tablet 00:00: mouth 00 daily. Medical Branch pantoprazol 2021-0 Yes [id number] 40mg Take 1 Univers e 40 mg EC 1-21 tablet by ity of tablet 00:00: mouth [place] 00 daily. Medical Branch pantoprazol 2021-0 Yes [id number] 40mg Take 1 Univers e 40 mg EC 1-21 tablet by ity of tablet 00:00: mouth 00 daily. Medical Branch pantoprazol 2021-0 Yes [id number] 40mg Take 1 Univers e 40 mg EC 1-21 tablet by ity of tablet 00:00: mouth [place] 00 daily. Medical Branch pantoprazol 2021-0 Yes [id number] 40mg Take 1 Univers e 40 mg EC 1-21 tablet by ity of tablet 00:00: mouth [place] 00 daily. Medical Branch pantoprazol 2021-0 Yes [id number] 40mg Take 1 Univers e 40 mg EC 1-21 tablet by ity of tablet 00:00: mouth [place] 00 daily. Medical Branch pantoprazol 2021-0 Yes [id number] 40mg Take 1 Univers e 40 mg EC 1-21 tablet by ity of tablet 00:00: mouth [place] 00 daily. Medical Branch pantoprazol Yes [id number] 40mg Take 1 Univers e 40 mg EC 1-21 tablet by ity of tablet 00:00: mouth [place] 00 daily. Medical Branch pantoprazol Yes [id number] 40mg Take 1 Univers e 40 mg EC 1-21 tablet by ity of tablet 00:00: mouth [place] 00 daily. Medical Branch pantoprazol Yes [id number] 40mg Take 1 Univers e 40 mg EC 1-21 tablet by ity of tablet 00:00: mouth [place] 00 daily. Medical Branch pantoprazol Yes [id number] 40mg Take 1 Univers e 40 mg EC 1-21 tablet by ity of tablet 00:00: mouth [place] 00 daily. Medical Branch pantoprazol Yes [id number] 40mg Take 1 Univers e 40 mg EC 1-21 tablet by ity of tablet 00:00: mouth [place] 00 daily. Medical Branch atorvastati 2020-02 Yes [id number] 40mg Take 1 Univers n 40 mg 2-14 tablet by ity of tablet 00:00: mouth at [place] 00 bedtime. Medical Branch insulin 2020-02 Yes 8U inject 8 Univer s regular 2-14 Units ity of human 00:00: under the [place] (NOVOLIN R 00 skin Medical REGULAR daily. Branch U-100 Daily at [facility]) 100 noon unit/mL injection atorvastati 2020-02 Yes [id number] 40mg Take 1 Univers n 40 mg 2-14 tablet by ity of tablet 00:00: mouth at [place] 00 bedtime. Medical Branch insulin 2020-02 Yes 8U inject 8 Univer s regular 2-14 Units ity of human 00:00: under the [place] (NOVOLIN R 00 skin Medical REGULAR daily. Branch U-100 Daily at [facility]) 100 noon unit/mL injection atorvastati 2020-02 Yes [id number] 40mg Take 1 Univers n 40 mg 2-14 tablet by ity of tablet 00:00: mouth at [place] 00 bedtime. Medical Branch insulin 2020-02 Yes 8U inject 8 Univer s regular 2-14 Units ity of human 00:00: under the [place] (NOVOLIN R 00 skin Medical REGULAR daily. Branch U-100 Daily at [facility]) 100 noon unit/mL injection atorvastati 2020-02 Yes [id number] 40mg Take 1 Univers n 40 mg 2-14 tablet by ity of tablet 00:00: mouth at [place] [address] bedtime. Medical Branch atorvastati 2020-02 Yes [id number] 40mg Take 1 Univers n 40 mg 2-14 tablet by ity of tablet 00:00: mouth at [place] [address] bedtime. Medical Branch atorvastati 2020-02 Yes [id number] 40mg Take 1 Univers n 40 mg 2-14 tablet by ity of tablet 00:00: mouth at [place] [address] bedtime. Medical Branch atorvastati 2020-02 Yes [id number] 40mg Take 1 Univers n 40 mg 2-14 tablet by ity of tablet 00:00: mouth at [place] [address] bedtime. Medical Branch atorvastati 2020-02 Yes [id number] 40mg Take 1 Univers n 40 mg 2-14 tablet by ity of tablet 00:00: mouth at [place] [address] bedtime. Medical Branch atorvastati 2020-02 Yes [id number] 40mg Take 1 Univers n 40 mg 2-14 tablet by ity of tablet 00:00: mouth at [place] [address] bedtime. Medical Branch atorvastati 2020-02 Yes [id number] 40mg Take 1 Univers n 40 mg 2-14 tablet by ity of tablet 00:00: mouth at [place] [address] bedtime. Medical Branch atorvastati 2020-02 Yes [id number] 40mg Take 1 Univers n 40 mg 2-14 tablet by ity of tablet 00:00: mouth at [place] [address] bedtime. Medical Branch atorvastati 2020-02 Yes [id number] 40mg Take 1 Univers n 40 mg 2-14 tablet by ity of tablet 00:00: mouth at [place] [address] bedtime. Medical Branch atorvastati 2020-02 Yes [id number] 40mg Take 1 Univers n 40 mg 2-14 tablet by ity of tablet 00:00: mouth at [place] [address] bedtime. Medical Branch atorvastati 2020-02 Yes [id number] 40mg Take 1 Univers n 40 mg 2-14 tablet by ity of tablet 00:00: mouth at [place] [address] bedtime. Medical Branch insulin 2020-023- No 8U inject 8 Unive rs regular 2-14 02-19 Units ity of human 00:00: 00:00 under the [place] (NOVOLIN R 00 :00 skin Medical REGULAR daily. Branch U-100 Daily at [facility]) 100 noon unit/mL injection Blood-Gluco [...] 2020-12-03 Completed University o f Polysaccharide, 00:00:00 [place] Med ical PPSV23 (PNEUMOVAX) Branch Influenza Virus [...] Completed Universit y of Conjugate, PCV13 00:00:00 [facility] dical (Prevnar 13) Branch Pneumococcal 13 2019-12-19 Completed Universit y of Conjugate, PCV13 00:00:00 [facility] dical (Prevnar 13) Branch Pneumococcal 13 2019-12-19 Completed Universit y of Conjugate, PCV13 00:00:00 [facility] dical (Prevnar 13) Branch Pneumococcal 13 2019-12-19 Completed Universit y of Conjugate, PCV13 00:00:00 [facility] dical (Prevnar 13) Branch Pneumococcal 13 2019-12-19 Completed Universit y of Conjugate, PCV13 00:00:00 [facility] dical (Prevnar 13) Branch Pneumococcal 13 2019-12-19 Completed Universit y of Conjugate, PCV13 00:00:00 [facility] dical (Prevnar 13) Branch Pneumococcal 13 2019-12-19 [...] Universit y of Conjugate, PCV13 00:00:00 [place] [facility] dical (Prevnar 13) Branch Pneumococcal 13 2019-12-19 Completed Universit y of Conjugate, PCV13 00:00:00 [facility] dical (Prevnar 13) Branch Pneumococcal 13 2019-12-19 Completed Universit y of Conjugate, PCV13 00:00:00 [facility] dical (Prevnar 13) Branch Influenza Virus 2019-11-22 [...] Dosage 2018-03-25 Completed Unive rsity of 00:00:00 [facility] HEP B, Adult Dosage 2018-03-25 Completed Unive rsity of 00:00:00 [facility] HEP B, Adult Dosage 2018-03-25 Completed Unive rsity of 00:00:00 [place] [facility] HEP B, Adult Dosage 2018-03-25 Completed Unive rsity of 00:00:00 [place] [facility] HEP B, Adult Dosage 2018-03-25 Completed Unive rsity of 00:00:00 [place] [facility] HEP B, Adult Dosage 2018-03-25 Completed Unive rsity of 00:00:00 [place] [facility] HEP B, Adult Dosage 2018-03-25 Completed Unive rsity of 00:00:00 [facility] Branch HEP B, Adult Dosage 2018-03-25 Completed [...] Completed Unive rsity of 00:00:00 [facility] Pneumococcal 13 2015-02-19 Completed Universit y of [...] ical PPSV23 (PNEUMOVAX) Branch Pneumococcal 2011-02-19 Completed [place] o f Polysaccharide, 00:00:00 [place] Med ical PPSV23 (PNEUMOVAX) Branch Pneumococcal 2011-02-19 Completed [place] o f Polysaccharide, 00:00:00 [place] Med ical PPSV23 (PNEUMOVAX) Branch Vital Signs Vital Name Observation Time Observation Value Comments Source Systolic blood 2022-03-16 14:28:00 128 mm[Hg] Univer sity of pressure [facility] Diastolic blood 2022-03-16 14:28:00 70 mm[Hg] Unive rsity of [facility] Heart rate 2022-03-16 14:28:00 93 /min [facility] Body temperature 2022-03-16 14:28:00 35.67 Lizz [facility] Respiratory rate 2022-03-16 14:28:00 17 /min [facility] Body weight 2022-03-16 14:28:00 81.058 kg [facility] BMI 2022-03-16 14:28:00 34.90 kg/m2 [facility] Oxygen saturation in 2022-03-16 14:28:00 98 /min [facility] Arterial blood by [facility] Pulse oximetry Branch Systolic blood 2022-03-14 19:37:00 138 mm[Hg] Univer sity of pressure [facility] Diastolic blood 2022-03-14 19:37:00 87 mm[Hg] Unive rsity of pressure [facility] Heart rate 2022-03-14 19:37:00 94 /min [facility] Respiratory rate 2022-03-14 19:37:00 20 /min [facility] Body height 2022-03-14 19:37:00 152.4 cm [facility] Body weight 2022-03-14 19:37:00 80.74 kg [facility] BMI 2022-03-14 19:37:00 34.76 kg/m2 Universi ty of [place] [facility] Oxygen saturation in 2022-03-14 19:37:00 99 /min University of Arterial blood by [facility] Pulse oximetry Branch Systolic blood 2022-02-28 [...] 2022-02-28 14:57:00 80.377 kg Universi ty of [place] [facility] BMI 2022-02-28 14:57:00 34.61 kg/m2 Universi ty of [place] [facility] Oxygen saturation in 2022-02-28 14:57:00 99 /min University of Arterial blood by [facility] Pulse oximetry Branch Systolic blood 2022-02-19 [...] 94 /min University of Arterial blood by [facility] Pulse oximetry Branch Body weight 2022-02-18 10:44:00 83.462 kg Universi ty of [place] [facility] BMI 2022-02-18 10:44:00 35.94 kg/m2 Universi ty of [place] [facility] Systolic blood 2022-02-16 16:07:00 116 mm[Hg] Univer sity of pressure [place] [facility] Diastolic blood 2022-02-16 16:07:00 71 mm[Hg] Unive rsity of pressure [place] [facility] Heart rate 2022-02-16 16:07:00 85 /min [facility] Body temperature 2022-02-16 16:07:00 36.89 Lizz [facility] Respiratory rate 2022-02-16 16:07:00 17 /min [facility] Body weight 2022-02-16 16:07:00 84.823 kg [facility] BMI 2022-02-16 16:07:00 36.52 kg/m2 [facility] Oxygen saturation in 2022-02-16 16:07:00 96 /min [facility] Arterial blood by [facility] Pulse oximetry [place] Systolic blood 2021-10-05 15:13:00 152 mm[Hg] Univer sity [facility] Diastolic blood 2021-10-05 15:13:00 77 mm[Hg] Unive [facility] Body height 2021-10-05 15:12:00 152.4 cm [facility] Body weight 2021-10-05 15:12:00 88.315 kg [facility] BMI 2021-10-05 15:12:00 38.02 kg/m2 [facility] Procedures Procedure Date / Time Performing Clinician Source Performed AUTHORIZATION FOR RELEASE 2022-03-23 06:01:00 Doctor Unassigned, [facility] [place] [facility] FLU 2022-03-16 14:43:42 Kia [facility] VACC([id number]),65+YR,0.5 Medica l Branch ML,IM,ADJUVANTED,QUAD(FLU AD) POCT GLUCOSE (AUTOMATED) 2022-02-19 17:59:00 Brii Samson [facility] XR CHEST 2 VW 2022-02-19 16:23:57 Sriram Heath [facility] POCT GLUCOSE (AUTOMATED) 2022-02-19 13:45:00 Brii Samson [facility] MAGNESIUM 2022-02-19 12:23:00 Rocael Vaughan [facility] BASIC METABOLIC PANEL 2022-02-19 12:23:00 Roacel Vaughan [facility] (NA, K, CL, CO2, GLUCOSE, Medica l Branch BUN, CREATININE, CA) CBC WITH DIFF 2022-02-19 12:23:00 Rocael Vaughan [facility] N-TERMINAL PRO-BNP 2022-02-19 12:23:00 Rocael Vaughan [facility] POCT GLUCOSE (AUTOMATED) 2022-02-19 07:07:00 Brii Samson [facility] POCT GLUCOSE (AUTOMATED) 2022-02-19 06:10:00 OvMarcie youngi Uni [facility] POCT GLUCOSE (AUTOMATED) 2022-02-19 03:34:00 OvBrii young Uni [facility] POCT GLUCOSE (AUTOMATED) 2022-02-18 23:14:00 Brii Samson Uni [facility] POCT GLUCOSE (AUTOMATED) 2022-02-18 17:29:00 Brii Samson Uni [facility] POCT GLUCOSE (AUTOMATED) 2022-02-18 13:40:00 Marcie Samsoni Uni [facility] BASIC METABOLIC PANEL 2022-02-18 10:53:00 Rocael Vaughan [facility] (NA, K, CL, CO2, GLUCOSE, Medica l Branch BUN, CREATININE, CA) LIPID PANEL ([id number])(TOTAL 2022-02-18 10:53:00 [facility] CHOLESTER[facility], Medical Branch TRIGLYCERIDES, HDL) CBC WITH DIFF 2022-02-18 10:53:00 Rocael Vaughan [facility] N-TERMINAL PRO-BNP 2022-02-18 10:53:00 Rocael Vaughan [facility] POCT GLUCOSE (AUTOMATED) 2022-02-18 02:34:00 Brii Samson Uni [facility] POCT GLUCOSE (AUTOMATED) 2022-02-17 22:16:00 Marcie Samsoni Uni [facility] POCT GLUCOSE (AUTOMATED) 2022-02-17 17:45:00 OvBrii young Uni [facility] POCT GLUCOSE (AUTOMATED) 2022-02-17 14:01:00 [facility] 2022-02-17 13:56:00 Chapin [facility] COMPLETE W/ CONTRAST Medical Bra nch MAGNESIUM 2022-02-17 09:47:00 Chapin [facility] BASIC METABOLIC PANEL 2022-02-17 09:47:00 Chapin [facility] (NA, K, CL, CO2, GLUCOSE, Medica l Branch BUN, CREATININE, CA) N-TERMINAL PRO-BNP 2022-02-17 09:47:00 Chapin [facility] POCT GLUCOSE (AUTOMATED) 2022-02-17 03:55:00 Chapin [facility] POCT GLUCOSE (AUTOMATED) 2022-02-17 03:16:00 Chapin [facility] URINALYSIS 2022-02-16 18:07:00 [facility] XR CHEST 1 VW 2022-02-16 17:06:49 [facility] LIPASE 2022-02-16 16:59:00 [facility] TROPONIN I 2022-02-16 16:59:00 [facility] HEPATIC FUNCTION PANEL 2022-02-16 16:59:00 Bird [facility] ([id number]) (ALB,T.PRO,BILI [facility] Branch T,BU/BC,ALT,AST,ALK PHOS) BASIC METABOLIC PANEL 2022-02-16 16:59:00 Bird [facility] (NA, K, CL, CO2, GLUCOSE, Medica l Branch BUN, CREATININE, CA) CBC WITH DIFF 2022-02-16 16:59:00 Bird [facility] GLYCOSYLATED HEMOGLOBIN 2022-02-16 16:59:00 Chapin [facility] (A1C) [facility] N-TERMINAL PRO-BNP 2022-02-16 16:59:00 Marina Pang [facility] COVID-19 (ID NOW RAPID 2022-02-16 16:59:00 Marina Pang [facility] TESTING) Medical Branch LAB ONLY COVID 2022-02-16 16:59:00 Marina Pang [place] [facility] [place] INTERPRETATION [facility] HB ECG ROUTINE & RHYTHM 2022-02-16 16:52:36 Marina Pang [facility] CONSENT/REFUSAL FOR 2022-02-16 16:40:37 Doctor Unassigned, [facility] DIAGNOSIS AND TREATMENT [place] [facility] POCT HEMOGLOBIN A1C TEST 2021-10-05 15:15:00 Amita Gomez [facility] Encounters Start End Encounter Admission Attending Care Care Encounter Source Date/Time Date/Time Type Type Clinicians Facility Department ID 2022-06-14 Outpatient Lamb, STLMLC [facility] [id number] Common 12:46:01 Elaine [id number] [facility] 2022-06-02 Outpatient Lamb, [facility]ML[facility] [id number] Common 14:48:01 Elaine [id number] [facility] 2020-12-17 Emergency [facility] [id number] Univers 21:39:43 [facility] 2020-12-17 Inpatient U [facility] [id number] Univers 18:26:55 alvino BARAKAT [facility] 2020-12-17 Emergency [facility] [id number] Univers 16:06:19 [facility] 2022-06-15 2022-06-15 Outpatient Moustapha ADAM [facility] [id number] Univers 09:00:00 09:00:00 SILVERIO [facility] 2022-04-27 2022-04-27 Outpatient Moustapha HEATH [facility] [id number] Univers 10:20:00 10:20:00 SRIRAM grove [facility] 2022-03-27 2022-03-27 Refill Kumar [facility] [id number] Univers 00:00:00 00:00:00 Qiachaim PALOMO [id number] ity of [facility] [id number] [phone] [place] dical NAL 059 [facility] 2022-03-23 2022-03-23 Orders Doctor YANA [id number] Univers 00:00:00 00:00:00 Only Unassigned, CARLOS [id number] ity of [facility] [id number] Bernabe as [phone] [address] 2022-03-22 2022-03-22 Sales Support Specialist 2, Adc Lab [facility] [id number] Univers 08:00:00 08:15:00 Visit Silverio Adam [id number] ity of [facility] [id number] [phone] [place] dical NAL 353 [facility] 2022-03-22 2022-03-22 Outpatient [facility] [id number] Univers 08:00:00 08:00:00 SILVERIO ity of [facility] 2022-03-16 2022-03-16 Outpatient R [facility] [id number] Univers 08:40:00 09:58:33 SILVERIO ity [facility] 2022-03-16 2022-03-16 Office [facility] [id number] Univers 08:40:00 09:00:00 Visit Silverio [place] [id number] i ty of [facility] [id number] [id number] [place] dical NAL 059 [facility] 2022-03-14 2022-03-14 Office [facility] [id number] Univers 13:40:00 14:00:00 Visit Sriram [place] [id number] ity of [facility] [id number] [phone] [place] dical NAL 059 [facility] 2022-03-142022-03-14 Outpatient R KUMAR, [facility] [id number] Univers 13:40:00 13:40:00 SRIRAM de oliveira o f [facility] 2022-03-09 2022-03-09 Outpatient R KIA, [facility] [id number] Univers 09:59:09 23:59:00 SILVERIO ity of [facility] 2022-02-28 2022-02-28 Outpatient R KUMAR, [facility] [facility] [id number] Univers 09:00:00 09:16:53 SRIRAM de oliveira o f [facility] 2022-02-28 2022-02-28 Office [facility] 1.2.840.114 [id number] Univers 09:00:00 09:16:53 Visit Sriram PAL[place] 350.1.13.10 ity of [place] [id number] [facility] [address] [facility] 2022-02-21 2022-02-21 Transition JONO Galvan 1.2.840.114 [id number] Univers 00:00:00 00:00:00 of Care Nara MG 350.1.13.10 it y of [place].2.[place] [id number] [facility] [address] 2022-02-16 2022-02-19 Inpatient X CHAPIN [facility] SAMI [id number] Univers 10:48:00 16:07:00 BRII ity of [facility] 2022-02-16 2022-02-19 [facility] Stephen PangeLeilani [facility] 1.2.840.11 [id number] Univers 10:48:00 16:07:00 Encounter Marcie Samsonkhadar PALOMO 350.1.13.10 it[place] [facility] [id number] [facility] [address] 2022-02-16 2022-02-16 Fang Govea [facility] 1.2.840.114 [id number] Univers 09:45:00 10:05:00 Care Unknown, Attending HEALTH 350.1.13.10 [place] of [place] 4.2.7.2.686 Bernabe as HUMPHREY?BLEA [id number] [facility] [address] MEDICAL OFFICE BUILDING 2022-02-16 2022-02-16 Outpatient R CASSI [facility] [id number] Univers 09:45:00 09:45:00 FANG de oliveira [facility] 2022-01-31 2022-01-31 Outpatient R KUMAR, [facility] [id number] Univers 14:20:00 14:20:00 SRIRAM grove [facility] 2022-01-31 2022-01-31 Outpatient R KUMAR, [facility] [id number] Univers 14:20:00 14:20:00 SRIRAM de oliveira o maine [facility] 2021-12-02 2021-12-02 Outpatient R KIA [facility] [id number] Univers 10:20:00 10:20:00 [facility] 2021-11-25 2021-11-25 Outpatient R KIA [facility] [id number] Univers 10:20:00 10:20:00 [facility] 2021-11-25 2021-11-25 Outpatient R KIA [facility] [id number] Univers 10:20:00 10:20:00 [facility] 2021-10-05 2021-10-05 Outpatient R AMITA GOMEZ [facility] [id number] Univers 10:30:00 11:22:11 AMITA GOMEZ [facility] 2021-10-05 2021-10-05 Office Amita Gomez [facility] 1.2.840.114 [id number] Univers 10:30:00 11:22:11 Visit HEALTH 350.1.13.10 it y of [place] 4.2.7.2.686 Bernabe as HUMPHREY?BLEA [id number] [facility] [address] MEDICAL OFFICE BUILDING 2021-09-21 2021-09-21 [facility]phone [facility] 1.2.791.261 [id number] Univers 00:00:00 00:00:00 Wentong HEALTH 350.1.13.10 it y of [place] 4.2.7.2.686 Bernabe as HUMPHREY?BLEA [id number] Ks dical KNEY [address] MEDICAL OFFICE BUILDING 2021-08-19 2021-08-19 Outpatient R SEWANI, [facility] [id number] Univers 11:20:00 11:20:00 SILVERIO [facility] 2021-08-16 2021-08-16 Outpatient R CASTLE, [facility] [id number] Univers 13:00:00 13:00:00 WENTONG [facility] 2021-08-01 2021-08-01 Office Kumar, [facility] 1.2.840.114 [id number] Univers 13:40:00 14:02:37 Visit Sriram [place] 350.1.13.10 ity jarek [place] [id number] [address] 2021-08-01 2021-08-01 Outpatient R KUMAR, [facility] [id number] Univers 13:40:00 14:02:37 QIACHAIM ity o [facility] 2021-08-01 2021-08-01 Outpatient R KUMAR, [facility] [id number] Univers 13:40:00 13:40:00 QIANGJUN ity o [facility] 2021-08-01 2021-08-01 Outpatient R KUMAR, [facility] [id number] Univers 13:40:00 13:40:00 QIANGJUN ity o [facility] 2021-08-01 2021-08-01 Outpatient R KUMAR, [facility] [id number] Univers 13:40:00 13:40:00 QIANGJUN ity o [facility] 2021-08-01 2021-08-01 Outpatient R KUMAR, [facility] [id number] Univers 13:40:00 13:40:00 QIANGJUN ity o [facility] 2021-07-22 2021-07-22 Refill Kumar, [facility] 1.2.840.114 [id number] Univers 00:00:00 00:00:00 Sriram PALOMO 350.1.13.10 ity jarek [place] [id number] Ks dic[address] 2021-06-24 2021-06-24 Outpatient R KIA [facility] [id number] Univers 10:00:00 10:46:29 [facility] 2021-06-24 2021-06-24 Office [facility] 1.2.840.114 [id number] Univers 10:00:00 10:20:00 Visit Silverio PALOMO 350.1.13.10 i ty of [place] 4.2.7.2.686 Bernabelauryn CALIXTOMANUELA [id number] [address] 2021-06-24 2021-06-24 Outpatient R KIA [facility] [id number] Univers 10:00:00 10:00:00 [facility] 2021-06-24 2021-06-24 [facility] [id number] Univers 10:00:00 10:00:00 [facility] 2021-06-10 2021-06-10 Outpatient R KIA [facility] [id number] Univers 10:46:49 23:59:00 [facility] 2021-05-23 2021-05-23 Outpatient R KUMAR, [facility] [id number] Univers 15:00:00 15:00:00 SRIRAM diamond [facility] 2021-05-04 2021-05-04 Outpatient R KUMAR, [facility] [id number] Univers 08:00:00 23:59:00 SRIRAM de oliveira o [facility] 2021-05-04 2021-05-04 Outpatient R KUMAR, [facility] [id number] Univers 08:00:00 08:00:00 SRIRAM de oliveira o [facility] 2021-04-28 2021-04-28 Outpatient R BROOKS [facility] [id number] Univers 13:00:00 14:03:10 DIANN [facility] 2021-04-28 2021-04-28 Office [facility] .2.730.502 [id number] Univers 13:00:00 14:03:10 Visit Diann DEWEY 350.1.13.10 i ty [facility] [place].2.7.2.686 [place] [facility] [phone] Ks dical NAL [address] [facility] 2021-04-22 2021-04-22 Outpatient Moustapha TRIMBLEShweta MITCHELL [facility] [id number] Univers 15:40:00 15:40:00 MITCHELL GARCIA kelsie [facility] 2021-04-22 2021-04-22 Outpatient Moustapha JOSEMITCHELL Rock [facility] [id number] Univers 15:40:00 15:40:00 MITCHELL GARCIA kelsie [facility] 2021-04-22 2021-04-22 Outpatient Moustapha JOSEMITCHELL Rock [facility] [id number] Univers 15:40:00 15:40:00 MITCHELL GARCIA [facility] 2021-04-18 2021-04-19 Emergency X [facility] ERT [id number] Univers 22:42:00 02:27:00 BERNIEUSHO ity [facility] 2021-04-18 2021-04-19 Emergency [facility] 1.2.840.114 [id number] Univers 22:42:00 02:27:00 Celia PALOMO 350.1.13.10 ity [facility] [place].2.7.2.[place] [phone] [facility] [address] 2021-04-18 2021-04-19 Emergency X IBIKPENDING SALE TO [facility] ERT [id number] Univers 22:42:00 02:27:00 FOLUSHO ity [facility] 2021-04-18 2021-04-18 Orders Doctor MILLAN 1.2.840.114 [id number] Univers 00:00:00 00:00:00 Only Unassigned, CARLOS 350.1.13.10 ity of [place] [facility] 4.2.7.2.686 Bernabe as [id number] [facility] [address] 2021-04-15 2021-04-15 [facility] 1.2.208.374 [id number] Univers 12:42:22 23:59:00 Encounter Clare PALOMO 350.1.13.10 ity of [place].686 [place] [id number] [facility] [address] 2021-04-15 2021-04-15 Outpatient R KUMAR [facility] [id number] Univers 10:00:00 10:33:44 SRIRAM ity o f [facility] 2021-04-15 2021-04-15 Office Kumar, [facility] 1.2.840.114 [id number] Univers 10:00:00 10:33:44 Visit Sriram [place] 350.1.13.10 ity [facility] 4.2.7.2.686 [place] [facility] [phone] Ks dical NAL [address] BUILDING 2021-04-15 2021-04-15 Outpatient R KUMAR [facility] [id number] Univers 10:00:00 10:33:44 SRIRAM de oliveira o [facility] 2021-04-15 2021-04-15 Outpatient R MAJOR [facility] [id number] Univers 00:00:00 00:00:00 WONDIFUL martyy o f [facility] 2021-04-15 2021-04-15 Orders Doctor MILLAN 1.2.840.114 [id number] Univers 00:00:00 00:00:00 Only Unassigned, CARLOS 350.1.13.10 [facility] 4.2.7.2.686 Bernabe as [id number] [facility] [address] 2021-04-13 2021-04-13 Outpatient R TIN [facility] [id number] Univers 10:00:00 11:12:56 [facility] 2021-04-13 2021-04-13 Office Tin, [facility] 1.2.840.114 [id number] Univers 10:00:00 11:12:56 Visit Critical access hospital 350.1.13.10 it y of [place] 4.2.7.2.686 Bernabe as HUMPHREY?BLEA [phone] Ks dical KNEY [address] MEDICAL OFFICE BUILDING 2021-04-13 2021-04-13 Outpatient R TIN [facility] [id number] Univers 10:00:00 11:12:56 WENTONG ity [facility] 2021-04-13 2021-04-13 Outpatient R CASTLE [facility] [id number] Univers 10:00:00 10:00:00 WENTONG ity of [facility] 2021-04-13 2021-04-13 Outpatient R TIN [facility] [id number] Univers 10:00:00 10:00:00 WENTONG ity of [facility] 2021-04-13 2021-04-13 Outpatient R CASTLE [facility] [id number] Univers 10:00:00 10:00:00 WENTONG ity [facility] 2021-04-12 2021-04-12 Nurse YANA Sanders 1.2.800.517 [id number] Univers 00:00:00 00:00:00 Triage Luis Alberto CARLOS 350.1.13.10 it y of [facility] 4.2.7.2.686 Bernabe as [id number] [address] 2021-04-07 2021-04-07 [facility]phone [facility] 1.2.200.208 [id number] Univers 00:00:00 00:00:00 Sriram [place] 350.1.13.10 ity [place] [phone] Ks dical NAL [address] [place] [address] 2021-04-01 2021-04-01 Outpatient R KIA [facility] [id number] Univers 10:00:00 10:40:52 SILVERIO ity [facility] 2021-04-01 2021-04-01 Office [facility] 1.2.840.114 [id number] Univers 10:00:00 10:40:52 Visit Silverio [place] 350.1.13.10 i ty [place] [phone] Ks dical NAL [address] [place] [address] 2021-03-30 2021-03-30 Telephone [facility] 1.2.840.114 [id number] Univers 00:00:00 00:00:00 [facility] 350.1.13.10 ity of [place] 4.2.7.2.686 Bernabe as HUMPHREY?BLEA [id number] Me dical [address] OFFICE [facility] 2021-03-30 2021-03-30 Telephone Jose [facility] 1.2.840.114 [id number] Univers 00:00:00 00:00:00 Mitchell [facility] 350.1.13.10 ity [facility] 4.2.7.2.686 Bernabe as HUMPHREY?ARLETTE [id number] [address] OFFICE [facility] 2021-03-29 2021-03-29 Outpatient MITCHELL TORRES [facility] [id number] Univers 08:00:00 09:38:08 JOSE MITCHELL kelsie [facility] 2021-03-29 2021-03-29 Outpatient MITCHELL TORRES [facility] [id number] Univers 08:00:00 09:38:08 MITCHELL GARCIA kelsie [facility] 2021-03-29 2021-03-29 Outpatient MITCHELL TORRES [facility] [id number] Univers 08:00:00 08:00:00 MITCHELL GARCIA [facility] 2021-03-29 2021-03-29 Orders Doctor MILLAN 1.2.840.114 [id number] Univers 00:00:00 00:00:00 Only Unassigned, CARLOS 350.1.13.10 ity of [facility] 4.2.7.2.686 Bernabe as [phone] [address] 2021-03-23 2021-03-23 Outpatient Moustapha HEATH [facility] [id number] Univers 15:40:00 16:06:08 SRIRAM de oliveira o f [facility] 2021-03-23 2021-03-23 Office [facility] 1.2.840.114 [id number] Univers 15:40:00 16:06:08 Visit Sriram PALOMO 350.1.13.10 ity [facility] 4.2.7.2.[place] [id number] Ks jamilahelinor [facility] 059 [facility] 2021-03-23 2021-03-23 Outpatient Moustapha HEATH [facility] [id number] Univers 16:00:00 16:00:00 SRIRAM de oliveira o f [facility] 2021-03-22 2021-03-22 Telephone [facility] 1.2.840.114 [id number] Univers 00:00:00 00:00:00 Diann DEWEY 350.1.13.10 i ty of [place].2.[place] [phone] Ks dical NAL 188 [facility] 2021-03-21 2021-03-21 Sales Support Specialist [place], [facility] Lab Main [facility] 1.2.8 40.114 [id number] Univers 14:45:00 15:00:00 [facility] 350.1 .13.10 ity of [place].2.[place] [id number] [facility] 353 [facility] 2021-03-21 2021-03-21 Outpatient R [facility] [id number] Univers 14:45:00 14:45:00 [facility] 2021-03-21 2021-03-21 Outpatient R [facility] [id number] Univers 14:45:00 14:45:00 [facility] 2021-03-21 2021-03-21 Orders Doctor YANA 1.2.840.114 [id number] Univers 00:00:00 00:00:00 Only Unassigned, CARLOS 350.1.13.10 ity of [place] [facility] 4.2.7.2.686 Bernabe as [id number] [facility] [address] 2021-03-21 2021-03-21 Telephone HiramclemenciarussellGLENNA 1.2.840.114 [id number] Univers 00:00:00 00:00:00 [facility] 350.1.13.10 i ty of [facility] 4.2.7.2.686 [place] [id number] [facility] [address] 2021-03-20 2021-03-20 Nurse YANA Bautista 1.2.840.114 [id number] Univers 00:00:00 00:00:00 Triage Cielo CARLOS 350.1.13.10 it y of HOSPITAL 4.2.7.2.686 Bernabe as [phone] [facility] [address] 2021-03-18 2021-03-18 Emergency [facility] 1.2.840.114 [id number] Univers 17:02:00 22:45:00 Ananya PALOM[place] 350.1.13.10 ity of [place].2.686 [place] [id number] [facility] [address] 2021-03-18 2021-03-18 Emergency [facility] ERT [id number] Univers 17:02:00 17:02:00 ANANYA itkelsie [facility] 2021-03-18 2021-03-18 Emergency X [facility] ERT [id number] Univers 16:34:00 16:34:00 itkelsie [facility] 2021-03-18 2021-03-18 Outpatient R EPI [facility] [id number] Univers 15:00:00 16:15:48 JENNIE martykelsie [facility] 2021-03-18 2021-03-18 Office [facility] 1.2.840.114 [id number] Univers 15:00:00 16:15:48 [facility] 350.1.13.10 it y of [place] 4.2.7.2.686 Bernabe as HUMPHREY?BLEA [id number] [address] MEDICAL OFFICE BUILDING 2021-03-18 2021-03-18 Outpatient [facility] ERT [id number] Univers 15:00:00 16:15:48 JENNIE alvino [facility] 2021-03-18 2021-03-18 Outpatient R EPI [facility] [id number] Univers 15:00:00 16:15:48 [facility] 2021-03-18 2021-03-18 Transition JONO Galvan 1.2.840.114 [id number] Univers 00:00:00 00:00:00 of Care Nara MG 350.1.13.10 it [facility] 4.2.7.2.[place] [id number] [facility] [address] 2021-03-12 2021-03-17 Inpatient X [facility] [id number] Univers 12:11:00 15:43:00 [facility] 2021-03-12 2021-03-17 Hospital AaronDamien nieto 1.2.840 .114 [id number] Univers 12:11:00 15:43:00 Encounter Soni Hunter okhina CARLOS 350.1.13.10 ity of [facility] 4.2.7.2.686 [place] [id number] [facility] [address] 2021-03-12 2021-03-17 Inpatient X [facility] [id number] Univers 12:11:00 15:43:00 [facility] ity [facility] 2021-03-17 2021-03-17 Nurse Esperanza Cronin 1.2.840.114 [id number] Univers 00:00:00 00:00:00 Triage CARLOS 350.1.13.10 it y of [facility] 4.2.7.2.686 Bernabe as [id number] [facility] [address] 2021-03-16 2021-03-16 Case Willian, [facility] 1.2.840.114 [id number] Univers 00:00:00 00:00:00 Management Wissam Y HEALTH 350.1.13.10 ity of [place] [facility] 4.2.7.2.[place] [id number] [facility] [address] 2021-03-16 2021-03-16 Case Willian, [facility] 1.2.840.114 [id number] Univers 00:00:00 00:00:00 Management Wissam Y HEALTH 350.1.13.10 ity of [place] [facility] 4.2.7.2.[place] [id number] [facility] [address] 2021-03-11 2021-03-11 Transition JONO Galvan 1.2.840.114 [id number] Univers 00:00:00 00:00:00 of Care Nara CASEYY 350.1.13.10 it y of [place] 4.2.7.2.686 [place] [id number] [facility] [address] 2021-03-11 2021-03-11 Telephone [facility] 1.2.283.814 [id number] Univers 00:00:00 00:00:00 Sriram PALOM[place] 350.1.13.10 ity [facility] 4.2.7.2.[place] [id number] Ks dical NAL 059 [facility] 2021-03-07 2021-03-10 Outpatient X ANUJ GONZALES [facility] SAMI [id number] Univers 08:28:00 14:20:00 ity of [facility] 2021-03-07 2021-03-10 Emergency Hudson Wolfe 1.2.840. 114 [id number] Univers 08:28:00 14:20:00 Anuj Gonzales Leslie RENEE 350.1.13.1 0 ity [facility] 4.2.7.2.686 Bernabe as [id number] [facility] [address] 2021-03-07 2021-03-10 Outpatient X ANUJ GONZALES [facility] SAMI [id number] Univers 08:28:00 14:20:00 ity of [facility] 2021-03-09 2021-03-09 Surgery Misael Castro [facility] 1.2.840.114 [id number] Univers 09:36:00 10:16:00 David ABBASI 350.1.13.10 it y of [place] 4.2.7.2.686 Bernabe as BLDG [phone] [facility] [address] 2021-03-03 2021-03-03 [facility] [id number] Univers 14:00:00 14:44:31 SHANTEL ity [facility] 2021-03-03 2021-03-03 Office [facility] 1.2.840.114 [id number] Univers 14:00:00 14:44:31 Visit Shantel [place] 350.1.13.10 ity [facility] 4.2.7.2.[place] [id number] Ks dical NAL 188 [facility] 2021-03-03 2021-03-03 Outpatient R BROOKS [facility] [id number] Univers 14:00:00 14:00:00 DIANN ity [facility] 2021-02-08 2021-02-08 Office Sabina Barba [facility] 1.2.840.114 [id number] Univers 15:30:00 16:44:10 Visit KHLOE 350.1.13.10 it y of [facility] [place].2.[place] [id number] [address] 2021-02-08 2021-02-08 Outpatient R SABINA BARBA [facility] [id number] Univers 15:30:00 16:44:10 ity [facility] 2021-02-08 2021-02-08 Outpatient R SABINA BARBA [facility] [id number] Univers 15:30:00 16:44:10 ity [facility] 2021-02-08 2021-02-08 Outpatient R SABINA BARBA [facility] [id number] Univers 15:30:00 15:30:00 ity [facility] 2021-02-08 2021-02-08 Outpatient R SABINA BARBA [facility] [id number] Univers 15:30:00 15:30:00 [facility] 2021-02-03 2021-02-03 Case [facility] 1.2.840.114 [id number] Univers 00:00:00 00:00:00 Management Wondiful A HEALTH 350.1.13.10 ity of [place] 4.2.7.2.686 Bernabe as HUMPHREY?BLEA [id number] [facility] [address] MEDICAL OFFICE BUILDING 2021-02-01 2021-02-01 Office [facility] 1.2.840.114 [id number] Univers 15:30:00 16:58:42 Visit Ericka HEALTH 350.1.13.10 it y of [place] 4.2.7.2.686 Bernabe as HUMPHREY?BLEA [phone] [facility] [address] MEDICAL OFFICE BUILDING 2021-02-01 2021-02-01 Outpatient [facility] [id number] Univers 15:30:00 16:58:42 ERICKA ity [facility] 2021-02-012021-02-01 Outpatient R MEKA [facility] [id number] Univers 16:30:00 16:30:00 ERICKA kelsie [facility] 2021-02-01 2021-02-01 Sales Support Specialist Lab, Royal [place]in [facility] 1.2.840.1 14 [id number] Univers 16:02:42 16:17:42 Visit [facility] 350.1.13.10 it[facility] 4.2.7.2.686 Bernabe as HUMPHREY?BLEA [id number] [address] OFFICE [facility] 2021-02-01 2021-02-01 Outpatient R MEKA [facility] [id number] Univers 15:30:00 15:30:00 ERICKA [facility] 2021-01-31 2021-01-31 Outpatient [facility] [id number] Univers 13:40:00 13:44:29 SRIRAM [facility] 2021-01-31 2021-01-31 Outpatient [facility] [id number] Univers 13:40:00 13:44:29 SRIRAM [facility] 2021-01-31 2021-01-31 Office [facility] 1.2.840.114 [id number] Univers 13:18:52 13:44:29 [facility] 350.1.13.10 ity [place] [id number] [facility] 059 [facility] 2021-01-31 2021-01-31 Outpatient [facility] [id number] Univers 13:40:00 13:40:00 SRIRAM y o [facility] 2021-01-31 2021-01-31 Sales Support Specialist Lab, Royal - Wilfred [facility] 1.2.840.1 14 [id number] Univers 10:03:00 10:18:00 [facility] 350.1.13.10 ity [facility] 4.2.7.2.686 Bernabe as HUMPHREY?BLEA [id number] [address] MEDICAL OFFICE [facility] 2021-01-31 2021-01-31 Office [facility] 1.2.840.114 [id number] Univers 09:22:40 10:03:18 Visit Wondiful A HEALTH 350.1.13.10 ity of [place] 4.2.7.2.686 Bernabe as HUMPHREY?BLEA [phone] Ks sherif [place] [address] MEDICAL OFFICE [facility] 2021-01-31 2021-01-31 Outpatient [facility] [id number] Univers 09:30:00 09:30:00 WONDIFUL ity o f [facility] 2021-01-11 2021-01-11 [facility] [id number] [id number] Univers 00:00:00 00:00:00 Management Wondiful [facility] 350.1.13.10 ity of [place] [id number] Bernabe as HUMPHREY?BLEA [phone] [place] sherif [place] [address] MEDICAL OFFICE [facility] 2021-01-07 2021-01-07 Outpatient [facility] [id number] Univers 16:30:00 23:59:00 WONDIFUL ity o f [facility] 2021-01-07 2021-01-07 [facility] [id number] Univers 16:30:00 23:59:00 Encounter Wondiful [facility] 350.1.13.10 ity of [place] [id number] Bernabe as HUMPHREY?BLEA [phone] [place] sherif [place] [address] MEDICAL OFFICE [facility] 2021-01-07 2021-01-07 Sales Support Specialist Lab, Ang - Db [facility] 1.2.840.1 [id number] Univers 16:36:52 16:51:52 Visit Clare Gonsalves [facility] 350.1.13.1 0 ity of [place] [id number] Bernabe as HUMPHREY?BLEA [phone] [place] sherif [place] [address] MEDICAL OFFICE [facility]ING 2021-01-07 2021-01-07 Outpatient [facility] [id number] Univers 16:15:00 16:37:00 WONDIFUL ity o f [facility] 2021-01-07 2021-01-07 [facility] 1.2.840.114 [id number] Univers 15:34:25 16:37:00 Visit Wondiful [facility] 350.1.13.10 ity of [place] [id number] Bernabe as HUMPHREY?BLEA [phone] [address] MEDICAL OFFICE [facility] 2021-01-05 2021-01-05 Telephone [facility] 1.2.840.114 [id number] Univers 00:00:00 00:00:00 Wondiful [facility] 350.1.13.10 ity of [place] [id number] Bernabe as HUMPHREY?BLEA [phone] [address] OFFICE [facility] 2020-12-28 2020-12-28 Outpatient R [facility] [id number] Univers 14:00:00 14:00:00 SILVERIO ity of [facility] 2020-12-27 2020-12-27 Outpatient R [facility] [id number] Univers 13:14:51 23:59:00 WONDIFUL ity o f [facility] 2020-12-27 2020-12-27 [facility] [id number] Univers 13:00:00 23:59:00 Encounter Wondiful A [place] 350.1.13.10 ity of [place] 4.2.7.2.686 [place] [facility] [phone] [address] 2020-12-27 2020-12-27 Outpatient [facility] [id number] Univers 00:00:00 00:00:00 WONDIFUL ity o f [facility] 2020-12-13 2020-12-13 [facility] 1.2.840.114 [id number] Univers 00:00:00 00:00:00 Wondiful A Health 350.1.13.10 ity of [place] 4.2.7.2.686 Bernabe as Humphrey?Blea [phone] [address] Medical Office [facility] 2020-12-132020-12-13 Telephone Major DARYL 1.2.840.114 [id number] Univers 00:00:00 00:00:00 Wondiful A Health 350.1.13.10 ity of [place] 4.2.7.2.686 Bernabe as Humphrey?Blea [phone] [address] Office [facility] 2020-12-06 2020-12-06 Telephone Major DARYL 1.2.840.114 [id number] Univers 00:00:00 00:00:00 Wondiful A Health 350.1.13.10 ity of [place] 4.2.7.2.686 Bernabe as Humphrey?Blea [phone] [address] 2020-12-03 2020-12-03 Sales Support Specialist Lab, Ang - Db [facility] 1.2.840.1 14 [id number] Univers 16:48:38 17:03:11 Visit Clare Gonsal[facility] 350.1.13.1 0 ity of [place] 4.2.7.2.686 Bernabe as Humphrey?Blea [phone] [address] Office [facility] 2020-12-03 2020-12-03 Sales Support Specialist Lab, Ang - Db [facility] 1.2.840.1 14 [id number] Univers 16:48:38 17:03:11 Visit Clare Gonsalves Health 350.1.13.1 0 ity of [place] 4.2.7.2.686 Bernabe as Humphrey?Blea [phone] [address] Office [facility] 2020-12-03 2020-12-03 Sales Support Specialist Lab, Ang - Db [facility] 1.2.840.1 14 [id number] Univers 16:48:38 17:03:11 Visit Clare Gonsalves HEALTH 350.1.13.1 0 ity of [place] 4.2.7.2.686 Bernabe as HUMPHREY?BLEA [phone] [address] OFFICE [facility] 2020-12-03 2020-12-03 Office JAYNE GonsalvesMB 1.2.840.114 [id number] Univers 15:32:14 16:49:03 Visit Wondiful A Health 350.1.13.10 ity of [place] 4.2.7.2.686 Bernabe as Humphrey?Blea [phone] Ks sherif kney 044 [facility] Office [facility] 2020-12-03 2020-12-03 Outpatient R MAJOR [facility] [id number] Univers 15:45:00 15:45:00 WONDIFUL ity o f [facility] 2020-11-23 2020-11-23 [facility] 1.2.840.114 [id number] Univers 09:49:05 10:43:01 Visit Silverio [place] 350.1.13.10 i ty of [place] 4.2.7.2.686 [place] Profess[place] [phone] [address] 2020-11-23 2020-11-23 Outpatient R KIA [facility] [id number] Univers 10:00:00 10:00:00 SILVERIO ity of [facility] 2020-11-15 2020-11-15 [facility] 1.2.840.114 [id number] Univers 00:00:00 00:00:00 Qiangjun [place] 350.1.13.10 ity of [place] 4.2.7.2.686 [place] [phone] [address] 2020-11-15 2020-11-15 [facility] 1.2.840.114 [id number] Univers 00:00:00 00:00:00 Wondiful A [place] 350.1.13.10 ity of [place] 4.2.7.2.686 [place] [phone] [address] 2020-11-11 2020-11-11 Cali [facility] 1.2.840.114 [id number] Univers 00:00:00 00:00:00 Wondiful A Health 350.1.13.10 ity of [place] 4.2.7.2.686 Bernabe as Professio [phone] [address] One 2020-10-05 2020-10-05 [facility] 1.2.840.114 [id number] Univers 00:00:00 00:00:00 Wondiful A Health 350.1.13.10 ity of [place] 4.2.7.2.686 Bernabe as Professio [phone] [address] 2020-10-04 2020-10-04 Orders Doctor YANA 1.2.840.114 [id number] Univers 00:00:00 00:00:00 Only Unassigned, CARLOS 350.1.13.10 ity of [place] [facility] 4.2.7.2.686 Bernabe as [phone] [address] 2020-09-24 2020-09-24 [facility] 1.2.840.114 [id number] Univers 00:00:00 00:00:00 Wondiful A Health 350.1.13.10 ity of [place] 4.2.7.2.686 Bernabe as Professio [phone] [facility] 044 [facility] 2020-09-09 2020-09-09 Cali Heath [facility] 1.2.840.114 [id number] Univers 00:00:00 00:00:00 Qiangjun [place] 350.1.13.10 ity of [place] 4.2.7.2.686 [place] [phone] [facility] 059 [facility] 2020-09-03 2020-09-03 [facility] 1.2.840.114 [id number] Univers 00:00:00 00:00:00 Wondiful A Health 350.1.13.10 ity of [place] 4.2.7.2.686 Bernabe as Professio [phone] [address] 2020-07-27 2020-07-27 Outpatient R KIA NJJENNI [facility] [id number] Univers 10:20:00 10:20:00 SILVERIO ity of [facility] 2020-07-27 2020-07-27 Office Kia NJJENNI 1.2.840.114 [id number] Univers 09:56:55 10:16:55 [facility] 350.1.13.10 i ty of [place] 4.2.7.2.686 [place] [phone] [facility] 059 [facility] 2020-07-13 2020-07-13 Orders Doctor YANA 1.2.840.114 [id number] Univers 00:00:00 00:00:00 Only Unassigned, CARLOS 350.1.13.10 [facility] 4.2.7.2.686 Bernabe as [phone] [address] 2020-07-08 2020-07-08 Refisra Gonsalves [facility] 1.2.840.114 [id number] Univers 00:00:00 00:00:00 Wondiful A Health 350.1.13.10 ity of [place] 4.2.7.2.686 Bernabe as Professio [phone] [facility] [address] [place] [address] Building One 2020-06-29 2020-06-29 Outpatient R [facility] [id number] Univers 10:30:00 10:30:00 ity [facility] 2020-06-29 2020-06-29 Outpatient [facility] [id number] Univers 10:30:00 10:30:00 SILVERIO ity [facility] 2020-06-07 2020-06-07 Office [facility] 1.2.840.114 [id number] Univers 13:02:14 13:29:23 Visit Sriram [place] 350.1.13.10 ity of [place] 4.2.7.2.686 [place] [phone] [facility] 059 [facility] 2020-06-07 2020-06-07 Outpatient [facility] [id number] Univers 13:00:00 13:00:00 SRIRAM de oliveira o [facility] 2020-06-02 2020-06-02 Outpatient R DEE [facility] [id number] Univers 19:20:00 19:20:00 VIRI de oliveira o [facility] 2020-06-02 2020-06-02 Laboratory Lab, Adc Fam Pob I [facility] 1.2. 840.114 [id number] Univers 18:38:28 18:58:[address] [facility] 350.1.13.10 ity of [place] 4.2.7.2.686 [place] Professio [phone] [address] Office [facility] One 2020-06-02 2020-06-02 Letter Doctor YANA 1.2.840.114 [id number] Univers 00:00:00 00:00:00 (Out) Unassigned, CARLOS 350.1.13.10 [place] of [place] HOSPITAL 4.2.7.2.686 Bernabe as [phone] [address] 2020-06-02 2020-06-02 Letter Doctor YANA 1.2.840.114 [id number] Univers 00:00:00 00:00:00 (Out) Unassigned, CARLOS 350.1.13.10 [place] of [place] HOSPITAL 4.2.7.2.686 Bernabe as [phone] [address] 2020-06-02 2020-06-02 Letter Doctor YANA 1.2.840.114 [id number] Univers 00:00:00 00:00:00 (Out) Unassigned, CARLOS 350.1.13.10 [place] of [place] HOSPITAL 4.2.7.2.686 Bernabe as [phone] [address] 2020-06-02 2020-06-02 Letter Doctor YANA 1.2.840.114 [id number] Univers 00:00:00 00:00:00 (Out) Unassigned, CARLOS 350.1.13.10 it[place] of [place] HOSPITAL 4.2.7.2.686 Bernabe as [phone] [facility] [address] [place] 2020-05-20 2020-05-20 Telephone YANA Samano 1.2.778.907 [id number] Univers 00:00:00 00:00:00 Teri RENEE 350.1.13.10 ity of HOSPITAL 4.2.7.2.686 Bernabe as [phone] [facility] [address] [place] 2020-05-20 2020-05-20 Telephone YANA Samano 1.2.531.488 [id number] 00:00:00 00:00:00 Teri RENEE 350.1.13.10 [facility] [phone] [id number] 2020-04-28 2020-04-28 Refill [facility] 1.2.840.114 [id number] Univers 00:00:00 00:00:00 Silverio [place] 350.1.13.10 i ty [place] 4.2.7.2.686 [place] [phone] Ks dicma nal [address] [place] [address] 2020-04-27 2020-04-27 [facility] 1.2.840.114 [id number] Univers 11:25:29 11:45:29 Visit Silverio [place] 350.1.13.10 i ty of [place] [address].2.7.2.686 [place] [phone] [address] 2020-04-27 2020-04-27 Outpatient [facility] [id number] Univers 11:40:00 11:40:00 SILVERIO ity [facility] 2020-04-26 2020-04-26 Outpatient R [facility] [id number] Univers 10:20:00 10:20:00 ERICH ity [facility] 2020-04-14 2020-04-14 [facility] 1.2.861.729 [id number] Univers 09:18:24 23:59:00 Encounter Wondiful Lauryn Palomo 350.1.13.10 ity [facility] 4.2.7.2.686 [place] [phone] [address] 2020-04-14 2020-04-14 Outpatient [facility] [id number] Univers 00:00:00 00:00:00 WONDIFUL ity o f [facility] 2020-03-31 2020-03-31 Sales Support Specialist [place], Adc Lab Main [facility] 1.2.8 40.114 [id number] Univers 09:18:24 09:33:24 Visit Major, Wondiful A [place] 350.1.13. 10 ity of [place] 4.2.7.2.686 [place] [phone] [place]s dical nal 353 [facility] 2020-03-31 2020-03-31 Outpatient [facility] [id number] Univers 09:15:00 09:15:00 WONDIFUL ity o f [facility] 2020-03-30 2020-03-30 Laboratory Pacemaker/Icd, [facility] 1.2. 840.114 [id number] Univers 12:51:02 13:15:05 Only Sewdom, Silverio Dewey 350.1.13.10 ity of [place] 4.2.7.2.686 [place] [phone] [facility] 059 [facility] 2020-03-30 2020-03-30 Outpatient R [facility] [id number] Univers 13:00:00 13:00:00 ity of [facility] 2020-03-29 2020-03-29 Office [facility] 1.2.840.114 [id number] Univers 15:15:24 16:12:41 [facility]yn [facility] 350.1.13.10 ity of [place] 4.2.7.2.686 Bernabe as Professio [phone] [facility] [address] [place] [address] Building One 2020-03-29 2020-03-29 Outpatient [facility] [id number] Univers 15:30:00 15:30:00 WONDIFUL ity o f [facility] 2020-03-03 2020-03-03 Orders Doctor YANA 1.2.840.114 [id number] Univers 00:00:00 00:00:00 Only Unassigned, CARLOS 350.1.13.10 ity of [place] [facility] 4.2.7.2.686 Bernabe as [phone] [address] 2020-02-03 2020-02-03 Outpatient [facility] [id number] Univers 14:20:00 14:20:00 SRIRAM ity o f [facility] 2020-02-03 2020-02-03 Office [facility] 1.2.840.114 [id number] Univers 13:38:09 14:13:45 Visit Guillechaim Palomo 350.1.13.10 ity of [place] 4.2.7.2.686 [place] [phone] K[place] dicma nal [address] [place] [address] 2020-01-27 2020-01-27 Office [facility] 1.2.840.114 [id number] Univers 10:58:57 11:32:49 Visit Silverio Dewey 350.1.13.10 i ty of [place] 4.2.7.2.686 [place] [phone] [address] 2020-01-27 2020-01-27 Outpatient R [facility] [id number] Univers 11:00:00 11:00:00 SILVERIO ity of [facility] 2020-01-20 2020-01-20 Orders Doctor YANA 1.2.840.114 [id number] Univers 00:00:00 00:00:00 Only Unassigned, CARLOS 350.1.13.10 [place] HOSPITAL 4.2.7.2.686 Bernabe as [phone] [address] 2020-01-20 2020-01-20 Telephone [facility] 1.2.609.451 [id number] Univers 00:00:00 00:00:00 Sriram Pal[place] 350.1.13.10 ity of [place] 4.2.7.2.686 [place] [phone] Ks dic[address] 2020-01-20 2020-01-20 Refill [facility] 1.2.840.114 [id number] Univers 00:00:00 00:00:00 Qiachaim Palomo 350.1.13.10 ity of [place] 4.2.7.2.686 [place] [phone] K[place] dicma nal [address] [place] [address] 2020-01-14 2020-01-14 Orders Doctor YANA 1.2.840.114 [id number] Univers 00:00:00 00:00:00 Only Unassigned, CARLOS 350.1.13.10 [place] HOSPITAL 4.2.7.2.686 Bernabe as [phone] [address] 2020-01-12 2020-01-12 Outpatient R KUMAR, [facility] [id number] Univers 10:00:00 10:00:00 DIMITRIZECHARIAH itkelsie o f [facility] 2020-01-05 2020-01-05 Sales Support Specialist 2, Adc Lab [facility] 1.2.840.114 [id number] Univers 15:31:18 15:46:18 Visit Omole, Min Palomo 350.1.1 3.10 ity of [place] 4.2.7.2.686 [place] [phone] [place] dical nal 353 [facility] 2020-01-05 2020-01-05 Office krystle, [facility] 1.2.840.114 [id number] Univers 14:39:45 15:28:14 Visit Min Palomo 350.1.13.10 i ty of Gretchen [place] 4.2.7.2.686 [place] [phone] [place] dicma nal 059 [facility] 2020-01-05 2020-01-05 Outpatient R FREDDY, [facility] [id number] Univers 14:45:00 14:45:00 MIN ity of [facility] 2020-01-05 2020-01-05 Orders Doctor MILLAN 1.2.840.114 [id number] Univers 00:00:00 00:00:00 Only Unassigned, CARLOS 350.1.13.10 [place] HOSPITAL 4.2.7.2.686 Bernabe as [phone] [address] 2020-01-01 2020-01-01 Telephone Kumar, [facility] 1.2.300.707 [id number] Univers 00:00:00 00:00:00 Dimitrizechariah Dewey 350.1.13.10 ity of [place] 4.2.7.2.686 [place] [phone] [place] dicma nal 059 [facility] 2019-12-19 2019-12-19 Office [facility] 1.2.840.114 [id number] Univers 11:30:41 12:16:36 Visit Nita [place] 350.1.13.10 i ty of [place] 4.2.7.2.686 [place] [phone] [place] dical nal 085 [facility] 2019-12-19 2019-12-19 Outpatient R NITA DEGROOT [facility] 10 [id number] Univers 11:40:00 11:40:00 NITA DEGROOT i ty of [facility] 2019-12-19 2019-12-19 Telephone [facility] 1.2.901.822 [id number] Univers 00:00:00 00:00:00 Qialisazechariah Palomo 350.1.13.10 ity of [place] 4.2.7.2.686 [place] [phone] [place] dicma nal 059 [facility] 2019-12-18 2019-12-18 Orders Doctor YANA 1.2.840.114 [id number] Univers 00:00:00 00:00:00 Only Unassigned, CARLOS 350.1.13.10 ity of [place] [facility] 4.2.7.2.686 Bernabe as [phone] [address] 2019-12-16 2019-12-16 Office [facility] 1.2.840.114 [id number] Univers 08:53:47 09:13:47 Visit Silverio [place] 350.1.13.10 i ty of [place] 4.2.7.2.686 [place] [phone] [facility] nal 059 [facility] 2019-12-16 2019-12-16 Outpatient R KIA [facility] [id number] Univers 09:00:00 09:00:00 SILVERIO ity of [facility] 2019-12-15 2019-12-15 Telephone [facility] 1.2.840.114 [id number] Univers 00:00:00 00:00:00 Wondiful A Health 350.1.13.10 ity of [place] 4.2.7.2.686 Bernabe as Professio [phone] [facility] [address] [place] Office [facility] One 2019-12-15 2019-12-15 Case [facility] 1.2.840.114 [id number] Univers 00:00:00 00:00:00 Management Wondiful A Health 350.1.13.10 ity of [place] 4.2.7.2.686 Bernabe as Professio [phone] [facility] [address] [place] Office Building [facility] 2019-12-10 2019-12-10 Orders Doctor YANA 1.2.840.114 [id number] Univers 00:00:00 00:00:00 Only Unassigned, CARLOS 350.1.13.10 ity of [place] [facility] 4.2.7.2.686 Bernabe as [phone] [address] 2019-12-09 2019-12-09 Urgent Provider, [facility] 1.2.840.114 [id number] Univers 14:46:41 15:59:38 Care Yeni Mccormickthia Health 350.1.13.10 ity of [place] 4.2.7.2.686 Bernabe as Professio [phone] [address] Office [facility] 2019-12-09 2019-12-09 Outpatient R LUKE [facility] [id number] Univers 15:00:00 15:00:00 MONICA ity of [facility] 2019-12-04 2019-12-04 Office [facility] 1.2.840.114 [id number] Univers 12:39:51 13:39:11 Visit Wonjoshua A Health 350.1.13.10 ity of [place] 4.2.7.2.686 Bernabe as Professio [phone] [address] Office [facility] 2019-12-04 2019-12-04 Outpatient [facility] [id number] Univers 13:00:00 13:00:00 WONDIFUL ity o f [facility] 2019-12-02 2019-12-02 Laboratory Pacemaker/Icd, [facility] 1.2. 840.114 [id number] Univers 10:50:24 11:27:03 Only Sriram [place] 350.1.13.10 ity of [place] 4.2.7.2.686 [place] [phone] [facility] 059 [facility] 2019-12-02 2019-12-02 Outpatient R [facility] [id number] Univers 11:00:00 11:00:00 ity of [facility] 2019-12-02 2019-12-02 Telephone [facility] 1.2.840.114 [id number] Univers 00:00:00 00:00:00 Wondiful A Health 350.1.13.10 ity of [place] 4.2.7.2.686 Bernabe as Professio [phone] [place] dical nal [address] [place] Office [facility] One 2019-12-01 2019-12-01 Office [facility] 1.2.840.114 [id number] Univers 15:16:46 16:01:04 Visit Sriram Palomo 350.1.13.10 ity of [place] 4.2.7.2.686 [place] [phone] [place] dical nal 059 [facility] 2019-12-01 2019-12-01 Outpatient R KUMAR [facility] [id number] Univers 15:40:00 15:40:00 GUILLELISAZECHARIAH martyy o f [facility] 2019-12-01 2019-12-01 Transition Jono Mccurdy 1.2.840.114 [id number] Univers 00:00:00 00:00:00 of Care Jo L Mg 350.1.13.10 i ty of [place] 4.2.7.2.686 [place] [phone] [facility] [address] [place] 2019-11-26 2019-11-28 Hospital Kirt Thomason [facility] 1.2.840.1 14 [id number] Univers 14:42:00 15:06:00 Encounter Gab Servin 350.1.13.10 ity of [place] 4.2.7.2.686 [place] [phone] [facility] [address] 2019-11-26 2019-11-28 Inpatient X GAB SERVIN [facility] SAMI [id number] Univers 14:42:00 15:06:00 ity of [facility] 2019-11-26 2019-11-26 Telephone [facility] 1.2.840.114 [id number] Univers 00:00:00 00:00:00 Wondiful A Health 350.1.13.10 ity of [place] 4.2.7.2.686 Bernabe as Professio [phone] [place] dical nal [address] [place] Office Building One 2019-11-24 2019-11-24 Telemedici [facility] 1.2.840.114 [id number] Univers 12:42:21 16:15:48 ne Visit Wondiful A Health 350.1.13.10 ity of [place] 4.2.7.2.686 Bernabe as Professio [phone] [facility] nal [address] [place] Office Building One 2019-11-24 2019-11-24 Outpatient [facility] [id number] Univers 15:30:00 15:30:00 WONDIFUL ity o f [facility] 2019-11-24 2019-11-24 Transition Jono Henry 1.2.840.114 [id number] Univers 00:00:00 00:00:00 of Care Cielo Mg 350.1.13.10 it y of [place] 4.2.7.2.686 [place] [phone] [facility] [address] 2019-11-24 2019-11-24 Orders Doctor YANA 1.2.840.114 [id number] Univers 00:00:00 00:00:00 Only Unassigned, CARLOS 350.1.13.10 ity of [place] [facility] 4.2.7.2.686 Bernabe as [phone] [facility] [address] 2019-11-21 2019-11-21 Transition Jono Henry 1.2.840.114 [id number] Univers 00:00:00 00:00:00 of Care Cielo Mg 350.1.13.10 it y of [place] 4.2.7.2.686 [place] [phone] [facility] [address] 2019-11-08 2019-11-20 [facility]am Craig 1.2.840.114 [id number] Univers 18:18:00 16:52:00 Encounter Argenis Barnett Carlos 350.1.13.1 0 ity of [facility] 4.2.7.2 .686 [place] [phone] [facility] [address] 2019-11-08 2019-11-20 Inpatient U [facility] [id number] Univers 18:18:00 16:52:00 AHMED ity of [facility] 2019-11-20 2019-11-20 Cali [facility] 1.2.840.114 [id number] Univers 00:00:00 00:00:00 Wondiful A Health 350.1.13.10 ity of [place] 4.2.7.2.686 Bernabe as Professio [phone] [address] 2019-11-19 2019-11-19 Outpatient [facility] [id number] Univers 14:30:00 14:30:00 [facility] 2019-11-19 2019-11-19 Refisra [facility] 1.2.840.114 [id number] Univers 00:00:00 00:00:00 Wondiful A Health 350.1.13.10 ity of [place] 4.2.7.2.686 Bernabe as Professio [phone] [address] 2019-11-17 2019-11-17 Outpatient [facility] [id number] Univers 08:00:00 08:00:00 SILVERIO ity [facility] 2019-11-14 2019-11-14 Outpatient R [facility] [id number] Univers 09:00:00 09:00:00 ity of [facility] 2019-11-10 2019-11-10 Ely [facility] 1.2.840.114 [id number] Univers 00:00:00 00:00:00 Wondiful A Health 350.1.13.10 ity of [place] 4.2.7.2.686 Bernabe as Professio [phone] [address] One 2019-11-08 2019-11-08 [facility]i [facility] 1.2.840.114 [id number] Univers 00:00:00 00:00:00 Wondiful A Health 350.1.13.10 ity of [place] 4.2.7.2.686 Bernabe as Professio [phone] [address] Office Building One 2019-11-05 2019-11-05 Hospital Kia [facility] 1.2.840.114 [id number] Univers 07:42:01 23:59:00 Encounter Silverio Health 350.1.13.10 [place] of [place]2.7.2.686 [place] [phone] [address] ([facility]) 2019-11-05 2019-11-05 Outpatient R KIA [facility] [id number] Univers 00:00:00 00:00:00 SILVERIO ity of [facility] 2019-10-29 2019-10-29 Pre Visit Major [facility] 1.2.840.114 [id number] Univers 00:00:00 00:00:00 Outreach Wondiful A Health 350.1.13.10 ity of [place] 4.2.7.2.686 Bernabe as Professio [phone] [address] Office Building One 2019-10-29 2019-10-29 Pre Visit Major [facility] 1.2.840.114 [id number] Univers 00:00:00 00:00:00 Outreach [facility] [id number] ity of [place] [id number] Bernabe as Professio [phone] [address] Office [facility] 2019-10-28 2019-10-28 Office Major [facility] 1.2.840.114 [id number] Univers 08:55:08 09:43:57 Visit [facility] 350.1.13.10 ity of [place] [id number] Bernabe as Professio [phone] [address] Office Building [facility] 2019-10-28 2019-10-28 Outpatient R [facility] [id number] Univers 09:30:00 09:30:00 WONDIFUL ity o f [facility] 2019-10-24 2019-10-24 Emergency Lukasz [facility] [id number] Univers 19:34:00 23:51:00 [place] [id number] ity [place] [phone] [facility] [address] [place] 2019-10-24 2019-10-24 Emergency X LUKASZ, [facility] ERT [id number] Univers 19:34:00 23:51:00 LUBNA ity of [facility] 2019-10-24 2019-10-24 [facility] 1.2.840.114 [id number] Univers 00:00:00 00:00:00 [facility] 350.1.13.10 ity of [place] 4.2.7.2.686 Bernabe as Professio [phone] [address] Office Building [facility] 2019-10-24 2019-10-24 Orders Doctor YNAA 1.2.840.114 [id number] Univers 00:00:00 00:00:00 Only Unassigned, CARLOS 350.1.13.10 ity of [place] [facility] 4.2.7.2.686 Bernabe as [phone] [facility] [address] [place] 2019-10-21 2019-10-21 Telephone Mary Kay Adam [id number] Univers 00:00:00 00:00:00 Silverio [place] 350.1.13.10 it y of Hospital 4.2.7.2.686 Bernabe as [phone] [facility] [address] [place] 2019-10-09 2019-10-09 Telephone GLENNA Adam 1.2.840.114 [id number] Univers 00:00:00 00:00:00 Silverio Y HEALTH 350.1.13.10 i ty of [place] [phone] [facility] [address] [place] 2019-10-08 2019-10-08 [facility] 1.2.840.114 [id number] Univers 00:00:00 00:00:00 [facility] 350.1.13.10 ity of [place] [id number] Bernabe as Professio [phone] [address] Office [facility] 2019-10-08 2019-10-08 [facility] 1.2.319.979 [id number] Univers 00:00:00 00:00:00 Silverio [place] 350.1.13.10 i [place] [phone] [facility] 059 [facility] 2019-10-01 2019-10-01 Orders Doctor YANA 1.2.840.114 [id number] Univers 00:00:00 00:00:00 Only Unassigned, CARLOS 350.1.13.10 ity of [place] [facility] 4.2.7.2.686 Bernabe as [phone] [address] 2019-09-23 2019-09-23 Telephone [facility] 1.2.675.682 [id number] Univers 00:00:00 00:00:00 Silverio [place] 350.1.13.10 i [place] 4[place]2.[place].2.[place] [phone] [facility] 059 [facility] 2019-09-18 2019-09-18 Telephone [facility] 1.2.840.114 [id number] Univers 00:00:00 00:00:00 Wondiful A [place] 350.1.13.10 ity of [place] 4.2.7.2.[place] [phone] [facility] 044 [facility] 2019-09-17 2019-09-17 [facility] 1.2.985.382 [id number] Univers 00:00:00 00:00:00 Silverio [place] 350.1.13.10 i [place] 4.2.7.2.[place] [phone] [place] 70[address]59 [facility] 2019-09-16 2019-09-16 Office [facility] 1.2.840.114 [id number] Univers 10:18:05 12:06:59 Visit Silverio [place] 350.1.13.10 i ty [place] 4.2.7.2.[place] [phone] [place] 70[address]59 [facility] 2019-09-16 2019-09-16 [facility]patient [facility] [id number] Univers 10:40:00 10:40:00 SILVERIO ity of [facility] 2019-09-16 2019-09-16 Telephone [facility] 1.2.648.917 [id number] Univers 00:00:00 00:00:00 Dimitrizechariah [place] 350.1.13.10 ity of [place] 4.2.7.2.[place] [phone] [place] 702959 [facility] 2019-09-15 2019-09-15 Laboratory Pc, Adc Echo Room 1 - [facility] 1 .2.840.114 [id number] Univers 09:42:44 11:10:38 Only Kumar Sriram Palomo 350.1.13.10 it[place] of [place] 4.2.7.2.[place] [phone] [address] 2019-09-15 2019-09-15 Outpatient R [facility] [id number] Univers 10:00:00 10:00:00 ity of [facility] 2019-09-10 2019-09-10 Telephone [facility] 1.2.840.114 [id number] Univers 00:00:00 00:00:00 Wondiful A Dewey 350.1.13.10 ity of [place] 4.2.7.2.[place] [phone] [address] 2019-09-08 2019-09-08 Office [facility] 1.2.840.114 [id number] Univers 13:10:22 13:44:08 Visit Sriram [place] 350.1.13.10 ity of [place] 4.2.7.2.[place] [phone] [address] 2019-09-08 2019-09-08 Outpatient [facility] [id number] Univers 13:20:00 13:20:00 SRIRAM fergusony o f [facility] 2019-08-25 2019-08-25 Refill [facility] 1.2.840.114 [id number] Univers 00:00:00 00:00:00 Sriram Health 350.1.13.10 i ty of [place] 4.2.7.2.686 Bernabe as Professio [phone] [address] Office [facility] One 2019-08-18 2019-08-18 Telephone Kumar, [facility] 1.2.359.588 [id number] Univers 00:00:00 00:00:00 Sriram Palomo 350.1.13.10 ity of [place] 4.2.7.2.[place] [phone] K[place] dicma nal 059 [facility] 2019-08-15 2019-08-15 Nurse Visit, [facility] Nurse [facility] 1.2.840.1 14 [id number] Univers 09:12:28 21:57:47 Visit Daog Gross 350.1.13. 10 ity of [place] 4.2.7.2.[place] [phone] Ks dical nal 059 [facility] 2019-08-15 2019-08-15 Sales Support Specialist 2, [facility] Lab [facility] 1.2.840.114 [id number] Univers 10:09:35 10:24:35 Visit Dago Gross 350.1.13. 10 ity of [place] 4.2.7.2.686 [place] [phone] Ks dical nal 353 [facility] 2019-08-15 2019-08-15 Outpatient R [facility] [id number] Univers 09:30:00 09:30:00 ity of [facility] 2019-08-13 2019-08-13 Office [facility] 1.2.840.114 [id number] Univers 16:05:34 16:57:20 Visit Alexey Palomo 350.1.13.10 i ty of [place] 4.2.7.2.686 [place] [phone] Ks dical nal 220 [facility] 2019-08-13 2019-08-13 Outpatient [facility] [id number] Univers 16:30:00 16:30:00 ALEXYE ity [facility] 2019-08-13 2019-08-13 Orders Doctor MILLAN 1.2.840.114 [id number] Univers 00:00:00 00:00:00 Only Unassigned, CARLOS 350.1.13.10 ity of [place] [facility] 4.2.7.2.686 Bernabe as [phone] [address] 2019-08-13 2019-08-13 Refill [facility] 1.2.840.114 [id number] Univers 00:00:00 00:00:00 Sriram [place] 350.1.13.10 ity of [place] 4.2.7.2.[place] [phone] [address] 2019-08-07 2019-08-07 Refill [facility] 1.2.840.114 [id number] Univers 00:00:00 00:00:00 Wondiful A Health 350.1.13.10 ity of [place] 4.2.7.2.686 Bernabe as Professio [phone] [address] 2019-08-04 2019-08-04 Sales Support Specialist Pc, Adc Vascular Room 1 - [facility] 1.2.840.114 [id number] Univers 10:43:00 11:05:18 Visit Sriram Heath 350.1.13.10 ity of [place] 4.2.7.2.[place] [phone] [address] 2019-08-04 2019-08-04 Outpatient R [facility] [id number] Univers 11:00:00 11:00:00 ity of [facility] 2019-08-04 2019-08-04 Telephone [facility] 1.2.019.718 [id number] Univers 00:00:00 00:00:00 Sriram Palomo 350.1.13.10 ity of [place] 4.2.7.2.[place] [phone] [address] 2019-08-03 2019-08-03 Refisra G[facility]alvesS[facility] 1.2.840.114 [id number] Univers 00:00:00 00:00:00 Wondiful A Health 350.1.13.10 ity of [place] 4.2.7.2.686 Bernabe as Professio [phone] [address] 2019-07-30 2019-07-30 Office [facility] 1.2.840.114 [id number] Univers 13:54:46 14:40:55 Visit Guillelisazechariah Dewey 350.1.13.10 ity of [place] 4.2.7.2.[place] [phone] [place] [address]59 [facility] 2019-07-30 2019-07-30 Outpatient [facility] [id number] Univers 14:20:00 14:20:00 SRIRAM ity o f [facility] 2019-07-30 2019-07-30 Orders Doctor YANA 1.2.840.114 [id number] Univers 00:00:00 00:00:00 Only Unassigned, CARLOS 350.1.13.10 [place] [facility] 4.2.7.2.686 Bernabe as [phone] [address] 2019-07-17 2019-07-17 Orders Doctor YANA 1.2.840.114 [id number] Univers 00:00:00 00:00:00 Only Unassigned, CARLOS 350.1.13.10 [place] [facility]OSP[facility] 4.2.7.2.686 Bernabe as [phone] [address] 2019-07-16 2019-07-16 Telephone [facility] 1.2.840.114 [id number] Univers 00:00:00 00:00:00 Wondiful A Health 350.1.13.10 ity of [place] 4.2.7.2.686 Bernabe as Professio [phone] [facility] 044 [facility] One 2019-07-01 2019-07-01 Telephone [facility] 1.2.251.669 [id number] Univers 00:00:00 00:00:00 Guillelisazechariah [place] 350.1.13.10 ity of [place] 4.2.7.2.[place] [phone] [facility] 059 [facility] 2019-06-30 2019-06-30 Sales Support Specialist [place], Adc Lab Main [facility] 1.2.8 40.114 [id number] Univers 07:52:57 08:07:57 Visit Kumar Sriram Palomo 350.1.13.10 it[place] of [place] 4.2.7.2.[place] [phone] [facility] 353 [facility] 2019-06-30 2019-06-30 Outpatient R KUMAR, [facility] [id number] Univers 08:00:00 08:00:00 SRIRAM de oliveira o f [facility] 2019-06-25 2019-06-25 Outpatient R KUMAR, [facility] [id number] Univers 09:40:00 09:40:00 SRIRAM fergusony o [facility] 2019-06-25 2019-06-25 Telemedici [facility] 1.2.840.114 [id number] Univers 08:37:50 08:57:50 ne Visit Sriram [place] 350.1.13.10 ity of [place] 4.2.7.2.[place] [phone] [facility] 059 [facility] 2019-05-28 2019-05-28 Refisra [facility] 1..840.114 [id number] Univers 00:00:00 00:00:00 Wondiful A Health 350.1.13.10 ity of [place] 4.2.7.2.686 Bernabe as Professio [phone] [facility] 044 [facility] 2019-05-25 2019-05-25 [facility] 1..840.114 [id number] Univers 00:00:00 00:00:00 Wondiful A Health 350.1.13.10 ity of [place] 4.2.7.2.686 Bernabe as Professio [phone] [address] 2019-05-21 2019-05-21 Outpatient R ALEXUS RAMOS [facility] [id number] Univers 10:00:00 10:00:00 ALEXUS RAMOS ity [facility] 2019-05-20 2019-05-20 Telemgisell HeathS[facility] 1..840.114 [id number] Univers 13:50:59 14:10:59 ne [facility] [place] 350.1.13.10 it[place] 4.2.7.2.[place] [phone] Ks dical nal 059 [facility] 2019-05-20 2019-05-20 Outpatient R KUMAR, [facility] [id number] Univers 13:40:00 13:40:00 QIALISAZECHARIAH ity o f [facility] 2019-05-20 2019-05-20 Telephone [facility] 1.2.840.114 [id number] Univers 00:00:00 00:00:00 Wondiful A Health 350.1.13.10 ity of [place] 4.2.7.2.686 Bernabe as Professio [phone] Ks dical nal [address] [place] Office [facility] 2019-05-13 2019-05-13 Telephone [facility] 1.2.615.670 [id number] Univers 00:00:00 00:00:00 Qiangzechariah [place] 350.1.13.10 ity of [place] 4.2.7.2.[place] [phone] Ks dical nal 059 [facility] 2019-05-09 2019-05-09 Refill [facility] 1.2.840.114 [id number] Univers 00:00:00 00:00:00 Wondiful A Health 350.1.13.10 ity of [place] 4.2.7.2.686 Bernabe as Professio [phone] [place] dical nal 0[address] [place] Office [facility] 2019-05-02 2019-05-02 Telephone [facility] 1.2.840.114 [id number] Univers 00:00:00 00:00:00 Wondiful A Health 350.1.13.10 ity of [place] 4.2.7.2.686 Bernabe as Professio [phone] Ks dical nal [address] [place] Office [facility] 2019-05-02 2019-05-02 Telephone [facility] 1.2.883.922 [id number] Univers 00:00:00 00:00:00 Wentong [place] 350.1.13.10 i ty of [place] 4.2.7.2.686 [place] [phone] Ks dical nal 220 [facility] 2019-04-30 2019-04-30 Sales Support Specialist [place], Adc Lab Main [facility] 1.2.8 40.114 [id number] Univers 09:32:20 09:47:20 Visit Sriram Heath 350.1.13.10 ity of [place] 4.2.7.2.686 [place] [phone] Ks dical nal 353 [facility] 2019-04-30 2019-04-30 Outpatient [facility] [id number] Univers 09:45:00 09:45:00 SRIRAM fergusony o f [facility] 2019-04-30 2019-04-30 Telephone [facility] 1.2.840.114 [id number] Univers 00:00:00 00:00:00 [employer] A J-Kan 350.1.13.10 ity of [place] 4.2.7.2.686 Bernabe as Professio [phone] Ks dical nal 044 [facility] One 2019-04-28 2019-04-28 Office [facility] 1.2.840.114 [id number] Univers 13:21:45 14:34:07 Visit Sriram Palomo 350.1.13.10 ity of [place] 4.2.7.2.686 [place] [phone] Ks dical nal 059 [facility] 2019-04-28 2019-04-28 Outpatient R KUMAR [facility] [id number] Univers 13:20:00 13:20:00 SRIRAM ity o f [facility] 2019-04-09 2019-04-09 Sales Support Specialist Luís Coleman Lab Main [facility] 1.2.8 40.114 [id number] Univers 16:15:01 16:30:01 Visit Alexey Castle 350.1.13.10 ity of [place] 4.2.7.2.[place] [phone] Ks dical sathya 353 [facility] 2019-04-09 2019-04-09 Office [facility] 1.2.840.114 [id number] Univers 15:08:31 15:58:05 Visit Alexey Dewey 350.1.13.10 i ty of [place] 4.2.7.2.[place] [phone] Ks dical nal 220 [facility] 2019-04-09 2019-04-09 Orders Doctor YANA 1.2.840.114 [id number] Univers 00:00:00 00:00:00 Only Unassigned, CARLOS 350.1.13.10 [place] HOSPITAL 4.2.7.2.686 Bernabe as [phone] [address] 2019-03-14 2019-03-30 Nurse Visit, [facility] Nurse [facility] 1.2.840.1 14 [id number] Univers 08:39:08 18:06:53 Visit Dago Gross 350.1.13. 10 ity of [place] 4.2.7.2.[place] [phone] [facility] 059 [facility] 2019-03-28 2019-03-28 Telephone Major [facility] 1.2.840.114 [id number] Univers 00:00:00 00:00:00 Wondiful A Health 350.1.13.10 ity of [place] 4.2.7.2.686 Bernabe as Professio [phone] [facility] 044 [facility] 2019-03-24 2019-03-24 Telephone Major [facility] 1.2.840.114 [id number] Univers 00:00:00 00:00:00 Wondiful A Health 350.1.13.10 ity of [place] 4.2.7.2.686 Bernabe as Professio [phone] [facility] 044 [facility] 2019-03-14 2019-03-14 Outpatient R GINNY [facility] [id number] Univers 09:15:00 09:37:46 SENDIL ity of [facility] 2019-03-14 2019-03-14 Orders Doctor YANA 1.2.840.114 [id number] Univers 00:00:00 00:00:00 Only Unassigned, CARLOS 350.1.13.10 [place] of [place] HOSPITAL 4.2.7.2.686 Bernabe as [phone] [address] 2019-03-06 2019-03-06 Telephone [facility] 1.2.840.114 [id number] Univers 00:00:00 00:00:00 Wondiful A Health 350.1.13.10 ity of [place] 4.2.7.2.686 Bernabe as Professio [phone] [place] [address] Branch Office Building One 2019-01-27 2019-01-27 Outpatient R KUMAR, [facility] [id number] Univers 14:20:00 14:44:45 SRIRAM fergusony o f [facility] 2019-01-19 2019-01-19 Emergency X MARIO, [facility] ERT [id number] Univers 10:06:29 15:10:00 EVAN de oliveira [facility] 2019-01-06 2019-01-06 Outpatient [facility] [id number] Univers 15:00:00 15:00:00 CLARE de oliveira o f [facility] 2018-12-11 2018-12-11 Outpatient [facility] [id number] Univers 08:45:00 08:45:00 EKATERINA de oliveira [facility] 2018-11-01 2018-11-01 Telephone [facility] 1.2.840.114 [id number] Univers 00:00:00 00:00:00 Wissam HEALTH 350.1.13.10 it y of [facility] 4.2.7.2.686 [facility] [phone] [facility] Primary & 059 [facility] 2018-10-31 2018-10-31 Telephone [facility] 1.2.840.114 [id number] Univers 00:00:00 00:00:00 Wondiful A Health 350.1.13.10 ity of [place] 4.2.7.2.686 Bernabe as Professio [phone] [place] [address] Branch Office Building One 2018-10-30 2018-10-30 Telephone [facility] 1.2.431.329 [id number] Univers 00:00:00 00:00:00 Madeleine Rica HEALTH 350.1.13.10 ity of [place] 4.2.7.2.686 [facility] [phone] [facility] 059 [facility] 2018-10-30 2018-10-30 [facility] 1.2.840.114 [id number] Univers 00:00:00 00:00:00 Wondiful A Health 350.1.13.10 ity of [place] 4.2.7.2.686 Bernabe as Professio [phone] [place] dical nal [address] [place] [address] Building One 2018-10-29 2018-10-29 Office Cookie [facility] 1.2.840.114 [id number] Univers 13:11:56 13:52:23 Visit Emily Health 350.1.13.10 i ty of [place] 4.2.7.2.686 Bernabe as Professio [phone] [place] dical nal [address] [place] Office Building One 2018-10-28 2018-10-29 Office Fac, Adc Heart Failure Cardio [facility] 1.2.840.114 [id number] Univers 15:47:43 12:03:16 Visit Edgar Cortés [place] 350.1 .13.10 ity of [place] 4.2.7.2.686 [facility] Professio [phone] Ks dical nal 059 [facility] 2018-10-28 2018-10-28 Hospital Nate [facility] 1.2.840.114 [id number] Univers 16:46:06 23:59:00 Encounter Madeleine Palomo 350.1.13.10 ity of [place] 4.2.7.2.686 [facility] [place] [phone] [facility] [address] [place] 2018-10-28 2018-10-28 Sales Support Specialist 1, Adc Lab [facility] 1.2.840.114 [id number] Univers 16:41:14 16:56:14 Visit Madeleine Sullivan 350.1.13.10 ity of [place] 4.2.7.2.686 [place] [phone] [facility] [address] 2018-10-28 2018-10-28 Orders Doctor YANA 1.2.840.114 [id number] Univers 00:00:00 00:00:00 Only Unassigned, CARLOS 350.1.13.10 it[place] of [place] HOSPITAL 4.2.7.2.686 Bernabe as [phone] [facility] [address] 2018-10-24 2018-10-24 Cali Dorsey [facility] 1.2.840.114 [id number] Univers 00:00:00 00:00:00 Wissam HEALTH 350.1.13.10 it y of [place].2.7.2.686 [place] [phone] [facility] 2018-10-14 2018-10-14 Refill Freddy, [facility] 1.2.840.114 [id number] Univers 00:00:00 00:00:00 Min [place] 350.1.13.10 i ty of [place] 4.2.7.2.[place] [phone] [address] Building 2018-10-01 2018-10-01 Orders Doctor YANA 1.2.840.114 [id number] Univers 00:00:00 00:00:00 Only Unassigned, CARLOS 350.1.13.10 ity of [place] [facility] 4.2.7.2.686 Bernabe as [phone] [facility] 009 Branch 2018-09-26 2018-09-26 Sales Support Specialist Lab, [facility] Fam Pob I [facility] 1.2. 840.114 [id number] Univers 13:45:07 15:25:16 Visit Major Clare A Health 350.1.13.1 0 ity of [place] 4.2.7.2.686 Bernabe as Professio [phone] [address] Office Building One 2018-09-26 2018-09-26 Telephone Fac, [facility] 1.2.840.114 [id number] Univers 00:00:00 00:00:00 Heart HEALTH 350.1.13.10 it y of Failure [place] 4.2.7.2.686 [place] [phone] [facility] 2018-09-10 2018-09-10 Office Major [facility] 1.2.840.114 [id number] Univers 12:36:16 13:37:40 Visit Josianeful A Health 350.1.13.10 ity of [place] 4.2.7.2.686 Bernabe as Professio [phone] [address] Office Building One 2018-09-02 2018-09-02 Orders Doctor YANA 1.2.840.114 [id number] Univers 00:00:00 00:00:00 Only Unassigned, CARLOS 350.1.13.10 it[place] of [place] HOSP[facility] 4.2.7.2.686 Bernabe as [phone] [address] Results Test Description Test Time Test Comments Results Result Comments Source POCT GLUCOSE (AUTOMATED) 2022-02-19 18:34:13 Test Item Value Reference Range Interpretation Comme nts POCT GLU (test code = 3197210565) 354 mg/dL 70-110 H Lab Interpretation (test code = 67807-6) [facility]19 14:51:34 Test Item Value Reference Range Interpretation Comments POCT GLU (test code = 5940587660) 158 mg/dL 70-110 H Lab Interpretation (test code = Abnormal 76589-5) [facility]2022-02-19 07:09:11 Test Item Value Reference Range Interpretation Comments POCT GLU (test code = 7507013361) 109 mg/dL 70-110 Lab Interpretation (test code = Normal 17986-6) [facility]2022-02-19 06:15:00 Test Item Value Reference Range Interpretation Comments POCT GLU (test code = 0658482436) 56 mg/dL 70-110 L Lab Interpretation (test code = Abnormal 09558-8) [facility]2022-02-19 03:41:03 Test Item Value Reference Range Interpretation Comments POCT GLU (test code = 4752092151) 197 mg/dL 70-110 H Lab Interpretation (test code = Abnormal 45126-5) [facility]2022-02-18 23:17:16 Test Item Value Reference Range Interpretation Comments POCT GLU (test code = 2873165358) 240 mg/dL 70-110 H Lab Interpretation (test code = Abnormal 97227-0) [facility] 18:24:23 Test Item Value Reference Range Interpretation Comments POCT GLU (test code = 5344077398) 274 mg/dL 70-110 H Lab Interpretation (test code = Abnormal 43602-6) [facility]2022-02-18 18:24:18 Test Item Value Reference Range Interpretation Comments POCT GLU (test code = 1091990910) 92 mg/dL 70-110 Lab Interpretation (test code = Normal 38413-2) [facility]wood[facility] (Total Cholesterol, Triglycerides, HDL) - [id number] 12:27:34 Test Item Value Reference Range Interpretation Comments CHOL (test code = 146 mg/dL 120-200 1773518043) HDL (test code = 54 mg/dL See_Comment [Automated message] 3037877630) The system [employer] generated this result transmit luis miguel reference range : >=50. The refer ence range was not u sed to interpret th is result as normal/abnormal . HDLC RATIO (test code = See_Comment [Au tomated message] 8184743267) The system [employer] generated this result transmit luis miguel reference range : <=4.5. The refe rence range was not u sed to interpret th is result as normal/abnormal . TRIG (test code = 113 mg/dL 30-170 9243662577) LDL CHOL (test code = 69 mg/dL See_Comment [Auto mated message] 26805-7) The system [employer] generated this result transmit luis miguel reference range : <=160. The refe rence range was not u sed to interpret th is result as normal/abnormal . VLDL (test code = 23 mg/dL 5-60 4775320776) Lab Interpretation (test Normal code = 04904-7) [facility]MIN[facility] [id number] 12:27:34 Test Item Value Reference Range Interpretation Comments NT-proBNP (test code 54995 pg/mL See_Comment H [Autom ated = 7032808583) message] The system which generated this result transmitted reference range : <=450. The reference range was not used to interpret this result as normal/abnormal . SEN (test code = SEN) Biotin has been reported to cause a negative bias, interpret results relative to patient's use of biotin. Lab Interpretation Abnormal (test code = 29092-9) [facility] (NA, K, CL, CO2, GLUCOSE, BUN, CREATININE, CA)2022-02-18 12:27:14 Test Item Value Reference Range Interpretation Comments NA (test code = 137 mmol/L 135-145 6804936210) K (test code = 4.0 mmol/L 3.5-5.0 9882869323) CL (test code = 104 mmol/L 98-108 2676364082) CO2 TOTAL (test code = 25 mmol/L 23-31 1807984159) AGAP (test code = 2-16 7937747631) BUN (test code = 62 mg/dL 7-23 H 3262180732) GLUCOSE (test code = 90 mg/dL 70-110 2043779991) CREATININE (test code = 2.02 mg/dL 0.50-1.04 H 6807797746) CALCIUM (test code = 8.3 mg/dL 8.6-10.6 L 6665540931) eGFR (test code = mL/min/1.73m2 4187608010) SEN (test code = SEN) Association of [...] tests). Lab Interpretation Abnormal (test code = 12053-6) [facility] WITH [id number] 11:30:43 Test Item Value Reference Range Interpretation [...] RDW-SD (test code = 46.4 fL 39.0-49.9 76732-4) RDW-CV (test code = 13.2 % 12.0-15.5 788-0) PLT (test code = See_Comment [Automated 777-3) message] The sy stem which generated this result transmitted reference range : 166 - 358 10*3/ ?L. The reference r beltran was not used to interpret this result as normal/abnormal . MPV (test code = 13.0 fL 9.5-12.9 H 07216-8) NRBC/100 WBC (test See_Comment [Automat ed code = [id number]) message] The system which generated this result transmitted reference range : 0.0 - 10.0 /100 WBCs. The refer ence range was not u sed to interpret th is result as normal/abnormal . NRBC x10^3 (test code See_Comment [Auto mated = 4310973145) message] The s ystem which generated this result transmitted reference range : 10*3/?L. The reference range was not used to interpret this result as normal/abnormal . GRAN MAT (NEUT) % 58.4 % (test code = 770-8) IMM GRAN % (test code 0.30 % = 8820176875) LYMPH % (test code = 27.5 % 736-9) MONO % (test code = 9.3 % 5905-5) EOS % (test code = 4.2 % 713-8) BASO % (test code = 0.3 % 706-2) GRAN MAT x10^3(ANC) 3.71 10*3/uL 1.88-7.09 (test code = 1060754590) IMM GRAN x10^3 (test 0.00-0.06 code = 1803201817) LYMPH x10^3 (test code 1.75 10*3/uL 1.32-3.29 = 731-0) MONO x10^3 (test code 0.59 10*3/uL 0.33-0.92 = 742-7) EOS x10^3 (test code = 0.27 10*3/uL 0.03-0.39 711-2) BASO x10^3 (test code 0.01-0.07 = 704-7) Lab Interpretation Abnormal (test code = 75564-1) [facility] GLUCOSE (AUTOMATED)2022-02-18 02:39:08 Test Item Value Reference Range Interpretation Comments POCT GLU (test code = 9048975646) 196 mg/dL 70-110 H Lab Interpretation (test code = Abnormal 28357-1) [facility] GLUCOSE (AUTOMATED)2022-02-17 23:16:54 Test Item Value Reference Range Interpretation Comments POCT GLU (test code = 7675089523) 140 mg/dL 70-110 H Lab Interpretation (test code = Abnormal 17031-4) [facility]:44:53 Test Item Value Reference Range Interpretation Comments Height (test code = in 3217542663) Weight (test code = lbs 4057968576) Systolic BP (test code = mmHg 0241728868) Diastolic BP (test code mmHg = 3761579356) Heart Rate (test code = bpm 3146500319) BSA (test code = 1.81 m2 9437504501) Ao root diam (test code 3.30 cm = 2076393859) Aortic root (test code = 3.3 cm 0991281785) Ao root annulus (test 3.3 cm code = 5173785118) LVOT diameter (test code 1.89 cm = 3068936827) LVOT area (test code = 2.80 cm2 6071908563) LAV(MOD-sp4) (test code 52.90 mL = 4925034083) E wave decelartion time 0.17 s (test code = 2821085633) MV stenosis pressure 1/2 51.3 ms time (test code = 6335422783) MV Peak E Mily (test code 95.2 cm/s = 5697107396) MV Peak A Mily (test code 61.8 cm/s = 1109533332) E/A ratio (test code = ratio 7230292850) MV Prop V (test code = 23.30 cm/s 0215658522) MV E/e' septal (test 7.8 cm/s code = 6413397902) TR Peak Mily (test code = 310.8 cm/s 7304454458) Triscuspid Valve mmHg Regurgitation Peak Gradient (test code = 1536387357) Tapse (test code = 1.99 cm 3467405318) LVOT stroke volume (test 40.40 cm3 code = 0266750866) LVOT peak mily (test code 67.8 cm/s = 7883470238) LVOT mn grad (test code mmHg = 1722956311) AV LVOT peak gradient mmHg (test code = 9747175105) LVOT peak VTI (test code 14.4 cm = 2330121171) LV V1 mean (test code = 45.30 cm/s 6045611880) MR max PG (test code = 65.40 mm[Hg] 9837199003) MR max mily (test code = 404.30 cm/s 6291491228) Mr max mily (test code = 404.3 m/s 6476304366) LVIDD (test code = 6.30 cm 0226226230) Left Ventricular End 202.4 mL Diastolic Volume by Teichholz Method (test code = 3354680) IVS (test code = 0.94 cm 5572846865) Interventricular Septum 0.94 cm Diastolic Thickness by 2D (test code = 7209067) LVPWD (test code = 0.94 cm 5678727846) PW (test code = 0.94 cm 0.6-1.6 0840309704) EF(Teich) (test code = 19.10 % 0536199357) LVIDS (test code = 5.80 cm 2875392838) Left Ventricular End 163.8 mL Systolic Volume by Teichholz Method (test code = 3268798) FS (test code = 9 % 1059395597) EF - 2D (test code = 19.10 % 43458445) LA size (test code = 3.5 cm 1634467643) Radiology Study observation (narrative) (test code = 89754-4) SEN (test code = SEN) Table formatting [...] mL of Lumason ultrasound enhancing agent used. [facility] GLUCOSE (AUTOMATED)2022-02-17 18:19:03 Test Item Value Reference Range Interpretation Comments POCT GLU (test code = 6130776786) 160 mg/dL 70-110 H Lab Interpretation (test code = Abnormal 33148-9) [facility] GLUCOSE (AUTOMATED)2022-02-17 14:06:55 Test Item Value Reference Range Interpretation Comments POCT GLU (test code = 2353145614) 101 mg/dL 70-110 Lab Interpretation (test code = Normal 38879-2) [facility] GLUCOSE (AUTOMATED)2022-02-17 03:58:48 Test Item Value Reference Range Interpretation Comments POCT GLU (test code = 9119484815) 278 mg/dL 70-110 H Lab Interpretation (test code = Abnormal 40751-5) [facility] GLUCOSE (AUTOMATED)2022-02-17 03:21:46 Test Item Value Reference Range Interpretation Comments POCT GLU (test code = 3797647380) 279 mg/dL 70-110 H Lab Interpretation (test code = Abnormal 29267-4) [facility]22-02-17 01:58:04 Test Item Value Reference Range Interpretation Comments HGB A1C (test code = 10.0 % 4.0-5.7 H 4548-4) SEN (test code = SEN) Reference RangesNormal: <5.7%Prediabetes: 5.7 - 6.4%Diabetes: > 6.5% Lab Interpretation (test Abnormal code = 98949-5) [facility] [id number] 17:30:57 Test Item Value Reference Interpretation Comments Range TROPONIN I (test 0.028 ng/mL See_Comment [Automated code = 8856973491) message] The system which generated this result [...] biotin. Lab Interpretation Normal (test code = 69594-6) [facility] [id number] 17:27:54 Test Item Value Reference Range Interpretation Comments NT-proBNP (test code 14970 pg/mL See_Comment H [Autom ated = 0882430705) message] The system which generated this result transmitted reference range : <=450. The reference range was not used to interpret this result as normal/abnormal . SEN (test code = SEN) Biotin has been reported to cause a negative bias, interpret results relative to patient's use of biotin. Lab Interpretation Abnormal (test code = 84756-1) [facility] (NA, K, CL, CO2, GLUCOSE, BUN, CREATININE, CA)2022-02-16 17:19:15 Test Item Value Reference Range Interpretation Comments NA (test code = 135 mmol/L 135-145 3562032623) K (test code = 4.7 mmol/L 3.5-5.0 4496595326) CL (test code = 104 mmol/L 98-108 2448008555) CO2 TOTAL (test code = 23 mmol/L 23-31 4760338375) AGAP (test code = 2-16 7515170527) BUN (test code = 58 mg/dL 7-23 H 6713480304) GLUCOSE (test code = 260 mg/dL 70-110 H 9492718042) CREATININE (test code = 1.78 mg/dL 0.50-1.04 H 4283821158) CALCIUM (test code = 8.2 mg/dL 8.6-10.6 L 3118118430) eGFR (test code = mL/min/1.73m2 5491326942) SEN (test code = SEN) Association of [...] tests). Lab Interpretation Abnormal (test code = 77501-5) [facility] (03653[facility] (ALB,T.PRO,BILI T,BU/BC,ALT,AST,ALK PHOS)2022-02-16 17:19:15 Test Item Value Reference Range Interpretation Comments TOTAL BILI (test code = 2726380131) 0.4 mg/dL 0.1-1.1 BILI UNCON (test code = 1365036749) 0.3 mg/dL 0.1-1.1 BILI CONJ (test code = 7928663300) 0.0 mg/dL 0.0-0.3 T PROTEIN (test code = 9464123198) 6.8 g/dL 6.3-8.2 ALBUMIN (test code = 6365239363) 3.8 g/dL 3.5-5.0 ALK PHOS (test code = 7512484551) 146 U/L 34-122 H ALTv (test code = 1742-6) 29 U/L 5-35 AST(SGOT) (test code = 5535946517) 28 U/L 13-40 Lab Interpretation (test code = Abnormal 30449-5) [facility] 17:19:15 Test Item Value Reference Range Interpretation Comments LIPASE (test code = 1177898297) 46 U/L 0-220 Lab Interpretation (test code = Normal 03970-2) [facility] WITH [id number] 17:12:53 Test Item Value Reference Range Interpretation Comments WBC (test code = See_Comment [Automated 6690-2) message] The sy stem which generated this result transmitted reference range : 4.30 - 11.10 10*3/?L. The reference range was not used to interpret this result as normal/abnormal . RBC (test code = See_Comment L [Automated 889-8) message] The sy stem which generated this [...] RDW-SD (test code = 47.8 fL 39.0-49.9 47520-9) RDW-CV (test code = 13.5 % 12.0-15.5 788-0) PLT (test code = See_Comment [Automated 777-3) message] The sy stem which generated this result transmitted reference range : 166 - 358 10*3/ ?L. The reference r beltran was not used to interpret this result as normal/abnormal . MPV (test code = 12.9 fL 9.5-12.9 35311-7) NRBC/100 WBC (test See_Comment [Automat ed code = 1665680230) message] The system which generated this result transmitted reference range : 0.0 - 10.0 /100 WBCs. The refer ence range was not u sed to interpret th is result as normal/abnormal . NRBC x10^3 (test code See_Comment [Auto mated = 3017341252) message] The s ystem which generated this result transmitted reference range : 10*3/?L. The reference range was not used to interpret this result as normal/abnormal . GRAN MAT (NEUT) % 75.4 % (test code = 770-8) IMM GRAN % (test code 0.20 % = 5535461662) LYMPH % (test code = 14.9 % 736-9) MONO % (test code = 7.7 % 5905-5) EOS % (test code = 1.6 % 713-8) BASO % (test code = 0.2 % 706-2) GRAN MAT x10^3(ANC) 6.77 10*3/uL 1.88-7.09 (test code = 1638357942) IMM GRAN x10^3 (test 0.00-0.06 code = 9962826262) LYMPH x10^3 (test code 1.34 10*3/uL 1.32-3.29 = 731-0) MONO x10^3 (test code 0.69 10*3/uL 0.33-0.92 = 742-7) EOS x10^3 (test code = 0.14 10*3/uL 0.03-0.39 711-2) BASO x10^3 (test code 0.01-0.07 = 704-7) Lab Interpretation Abnormal (test code = 28526-6) [facility] HEMOGLOBIN A1C [id number] 15:15:00 Test Item Value Reference Range Interpretation Comments POCT HBA1C (test code = 4548-4) 7.6 % 4-6 A Lab Interpretation (test code = Abnormal 58524-6) [facility] HEMOGLOBIN A1C [id number] 15:15:00 Test Item Value Reference Range Interpretation Comments POCT HBA1C (test code = 4548-4) 7.6 % 4-6 A Lab Interpretation (test code = Abnormal 48911-6) [facility]
[2022-09-16 03:38] LABS: Absolute Lymphocytes (CBC) 1.5 K/uL (0.7-4.9); Hematocrit 29.3 % (36.0-45.0); Lymphocytes % 19.3 % (15.3-44.8); MCV 94.2 fL (80-100); MPV 9.8 fL (7.6-11.3); RBC Red Blood Cell Count 3.11 M/uL (3.86-4.86)
[2022-09-16] MEDS ORDERED: IPRATROPIUM BROM 0.5MG/2.5ML ONE (03:45)
[2022-09-16] MEDS ORDERED: ALBUTEROL 2.5 MG/3 ML NEB SOL ONE (03:45)
[2022-09-16 03:56] LABS: ALT/SGPT 56 U/L (13-56); AST/SGOT 36 U/L (15-37); Albumin 3.5 g/dL (3.4-5.0); Alkaline Phosphatase 129 U/L (45-117); BUN Blood Urea Nitrogen 107 mg/dL (7-18); Bicarbonate 26 mEq/L (21-32); Bilirubin Total 0.2 mg/dL (0.2-1.0); Glomerular Filtration Rate 22 ml/min (=/>90); Glucose Level 183 mg/dL (74-106); Magnesium 2.3 mg/dL (1.6-2.4); NT PRO-BNP 11946 pg/mL (<450); Potassium 4.2 mEq/L (3.5-5.1); Sodium Level 136 mEq/L (136-145); Troponin High Sensitivity 25.1 pg/mL (<58.9)
[2022-09-16 03:57] LABS: Bilirubin Direct < 0.1 mg/dL (0-0.2); Bilirubin Indirect, Calculated ND mg/dL (0.2-0.8)
--- NOTE | 2022-09-16 06:28 | ER ---
Nurse's Notes [facility] [place] Name: Teena Simpson Age: 77 yrs Sex: Female : 1945 Arrival Date: 09/16/2022 Time: 02:58 Bed 19 Private MD: Diagnosis: Dyspnea Presentation: 09/16 03:33 Chief complaint: Patient states: I still can't breath. I can't sleep because I can't vc1 breath. Coronavirus screen: Vaccine status: Patient reports receiving the 2nd dose of the covid vaccine. plus booster; pfizer Client denies travel out of the [place] in the last 14 days. At this time, the client does not indicate any symptoms associated with coronavirus-19. Ebola Screen: Patient negative for fever greater than or equal to 101.5 degrees Fahrenheit, and additional compatible Ebola Virus Disease symptoms Patient denies exposure to infectious person. Patient denies travel to an Ebola-affected area in the 21 days before illness onset. No symptoms or risks identified at this time. Initial Sepsis Screen: Does the patient meet any 2 criteria? No. Patient's initial sepsis screen is negative. Does the patient have a suspected source of infection? No. Patient's initial sepsis screen is negative. Risk Assessment: Do you want to hurt yourself or someone else? Patient reports no desire to harm self or others. Onset of symptoms is unknown. 03:33 Method Of Arrival: Wheelchair vc1 03:33 Acuity: TYSON 4 vc1 Triage Assessment: 03:36 General: Appears in no apparent distress. comfortable, Behavior is cooperative, vc1 anxious. Pain: Denies pain. EENT: No deficits noted. No signs and/or symptoms were reported regarding the EENT system. Neuro: Level of Consciousness is awake, alert, obeys commands, Oriented to person, place, time, situation, Appropriate for age. Cardiovascular: No deficits noted. Respiratory: No deficits noted. Reports shortness of breath at rest Airway is patent Trachea midline Respiratory effort is even, unlabored, Respiratory pattern is regular, symmetrical, Onset: The symptoms/episode began/occurred at an unknown time. the patient has moderate shortness of breath. GI: No deficits noted. No signs and/or symptoms were reported involving the gastrointestinal system. : No deficits noted. No signs and/or symptoms were reported regarding the genitourinary system. Derm: No deficits noted. No signs and/or symptoms reported regarding the dermatologic system. Musculoskeletal: No deficits noted. No signs and/or symptoms reported regarding the musculoskeletal system. Historical: - Allergies: 03:35 Augmentin; vc1 03:35 Cipro; vc1 03:35 Keppra; vc1 - Home Meds: 03:35 atorvastatin 40 mg Oral tab 1 tab every day at bedtime [Active]; Eliquis 2.5 mg Oral vc1 tablet 1 tab 2 times per day [Active]; furosemide 40 mg Oral tab 1 tab daily [Active]; metoprolol succinate 100 mg Oral tab 1 tab 2 times per day [Active]; Novolin N NPH U-100 Insulin 100 unit/mL Sub-Q tab 20 units every evening [Active]; Phenytoin 100mg Oral 1 tab 2 times per day [Active]; - PMHx: 03:35 Anxiety; Atrial Fib; CHF; Diabetes - IDDM; High Cholesterol; Hypertension; Kidney vc1 failure stage 4; Low HR; Myocardial infarction; neuropathy; Seizures; - PSHx: 03:35 Appendectomy; Hemorrhoidectomy; Pacemaker-Defib; vc1 - Immunization history:: Client reports receiving the 2nd dose of the Covid vaccine. - Social history:: Smoking status: Patient denies any tobacco usage or history of. - Family history:: not pertinent. Screenin:38 [facility] ED Fall Risk Assessment (Adult) History of falling in the last 3 months, vc1 including since admission No falls in past 3 months (0 pts) Confusion or Disorientation No (0 pts) Intoxicated or Sedated No (0 pts) Impaired Gait No (0 pts) Mobility Assist Device Used No (0 pt) Altered Elimination No (0 pt) Score/Fall Risk Level 0 - 2 = Low Risk Oriented to surroundings, Maintained a safe environment, Educated pt \T\ family on fall prevention, incl call for assistance when getting out of bed. Abuse screen: Denies threats or abuse. Nutritional screening: No deficits noted. Tuberculosis screening: No symptoms or risk factors identified. Assessment: 03:10 General: Appears comfortable, Behavior is calm, cooperative. Pain: Denies pain. Neuro: ha1 Level of Consciousness is awake, alert, obeys commands, Oriented to person, place, time, situation. Cardiovascular: Reports shortness of breath, Denies chest pain, Heart tones S1 S2 present Patient's skin is warm and dry. Rhythm is ventricular pacer. Respiratory: Reports shortness of breath at rest Airway is patent Respiratory effort is even, unlabored, Respiratory pattern is regular, symmetrical, Breath sounds are clear bilaterally. GI: No signs and/or symptoms were reported involving the gastrointestinal system. Abdomen is round non-distended, Bowel sounds present X 4 quads. Musculoskeletal: Circulation, motion, and sensation intact. Range of motion: intact in all extremities. 04:10 Reassessment: Patient and/or family updated on plan of care and expected duration. Pain ha1 level reassessed. Patient is alert, oriented x 3, equal unlabored respirations, skin warm/dry/pink. Patient states feeling better. Patient states symptoms have improved. 05:10 Reassessment: Patient and/or family updated on plan of care and expected duration. Pain ha1 level reassessed. Patient is alert, oriented x 3, equal unlabored respirations, skin warm/dry/pink. Patient states feeling better. Patient states symptoms have improved. 06:05 Reassessment: Patient and/or family updated on plan of care and expected duration. Pain ha1 level reassessed. Patient is alert, oriented x 3, equal unlabored respirations, skin warm/dry/pink. Patient states feeling better. Patient states symptoms have improved. 07:00 Reassessment: Patient and/or family updated on plan of care and expected duration. Pain ha1 level reassessed. Patient is alert, oriented x 3, equal unlabored respirations, skin warm/dry/pink. Patient states feeling better. Patient states symptoms have improved. Vital Signs: 03:33 BP 114 / 71; Pulse 89; Resp 20; Pulse Ox 100% ; Weight 78.47 kg; Height 5 ft. 0 in. ; vc1 Pain 0/10; 04:00 BP 115 / 66; Pulse 90; Resp 20 S; Pulse Ox 98% on R/A; ha1 05:00 BP 107 / 53; Pulse 90; Resp 18 S; Pulse Ox 98% on R/A; ha1 06:05 BP 122 / 57; Pulse 89; Resp 16 S; Pulse Ox 100% on R/A; ha1 07:00 BP 120 / 75; Pulse 87; Resp 18 S; Pulse Ox 98% on R/A; ha1 03:33 Body Mass Index 33.79 (78.47 kg, 152.4 cm) vc1 03:33 Pain Scale: Adult vc1 ED Course: 03:04 Patient arrived in ED. ag3 03:05 Contreras Natarajan MD is Attending Physician. rt 03:20 Dariana Mai, RN is Primary Nurse. ha1 03:32 Inserted saline lock: 20 gauge in right upper arm, using aseptic technique. ,using vc1 aseptic technique. ultrasound guided Blood collected. 03:35 Triage completed. vc1 03:38 Arm band placed on right wrist. vc1 03:39 Patient has correct armband on for positive identification. Bed in low position. Call vc1 light in reach. Client placed on continuous cardiac and pulse oximetry monitoring. NIBP monitoring applied. 03:40 Basic Metabolic Panel Sent. ha1 03:40 LFT's Sent. ha1 03:40 Magnesium Sent. ha1 03:40 NT PRO-BNP Sent. ha1 03:40 Troponin HS Sent. ha1 03:43 XRAY Chest (1 view) In Process Unspecified. EDMS 07:14 No provider procedures requiring assistance completed. IV discontinued, intact, ha1 bleeding controlled, No redness/swelling at site. Pressure dressing applied. 07:14 Provided Education on: follow up appointment . ha1 Administered Medications: 03:41 Drug: DuoNeb Nebulize (3:1) (2.5 mg - 0.5 mg) 3 ml Route: Nebulizer; ha1 04:14 Follow up: Response: No adverse reaction ha1 Medication: 03:39 VIS not applicable for this client. vc1 Outcome: 06:27 Discharge ordered by . rt 07:14 Patient left the ED. ha1 07:14 Condition: stable ha1 07:14 Discharged to home via wheelchair, with family. ha1 07:14 Discharge instructions given to patient, family, Instructed on discharge instructions, ha1 follow up and referral plans. medication usage, Demonstrated understanding of instructions, follow-up care, medications, Prescriptions given X 2. Signatures: Dispatcher [employer] EDME Caitlin Castillo 3 Lizbet Max RN RN vc1 Dariana Mai, WM RN ha1 Contreras Natarajan MD MD rt
--- NOTE | 2022-09-16 06:28 | EDPHYS ---
Physician Documentation [facility] Name: Teena Simpson Age: 77 yrs Sex: Female : 1945 Arrival Date: 09/16/2022 Time: 02:58 Bed 19 Private MD: ED Physician Contreras Natarajan HPI: 09/16 05:02 This 77 yrs old Female presents to ER via Wheelchair with complaints of rt Breathing Difficulty. 05:02 Patient with COPD, CHF presents to the ED with difficulty breathing that has been rt worsening since earlier tonight. Patient states that she has difficulty in lying down due to the shortness of breath. She states that Trelegy is not working. She denies chest pain, other acute complaints. Symptoms are moderate severity, no other aggravating or alleviating factors. Historical: - Allergies: 03:35 Augmentin; vc1 03:35 Cipro; vc1 03:35 Keppra; vc1 - Home Meds: 03:35 atorvastatin 40 mg Oral tab 1 tab every day at bedtime [Active]; Eliquis 2.5 mg Oral vc1 tablet 1 tab 2 times per day [Active]; furosemide 40 mg Oral tab 1 tab daily [Active]; metoprolol succinate 100 mg Oral tab 1 tab 2 times per day [Active]; Novolin N NPH U-100 Insulin 100 unit/mL Sub-Q tab 20 units every evening [Active]; Phenytoin 100mg Oral 1 tab 2 times per day [Active]; - PMHx: 03:35 Anxiety; Atrial Fib; CHF; Diabetes - IDDM; High Cholesterol; Hypertension; Kidney vc1 failure stage 4; Low HR; Myocardial infarction; neuropathy; Seizures; - PSHx: 03:35 Appendectomy; Hemorrhoidectomy; Pacemaker-Defib; vc1 - Immunization history:: Client reports receiving the 2nd dose of the Covid vaccine. - Social history:: Smoking status: Patient denies any tobacco usage or history of. - Family history:: not pertinent. ROS: 05:02 Constitutional: Negative for fever, chills, and weight loss, Cardiovascular: Negative rt for chest pain, palpitations, and edema, Abdomen/GI: Negative for abdominal pain, nausea, vomiting, diarrhea, and constipation, Skin: Negative for injury, rash, and discoloration, Neuro: Negative for headache, weakness, numbness, tingling, and seizure, Psych: Negative for depression, anxiety, suicide ideation, homicidal ideation, and hallucinations. 05:02 Respiratory: Positive for cough, shortness of breath. Exam: 05:02 Constitutional: This is a well developed, well nourished patient who is awake, alert, rt and in no acute distress. Head/Face: Normocephalic, atraumatic. Chest/axilla: Normal chest wall appearance and motion. Nontender with no deformity. No lesions are appreciated. Cardiovascular: Regular rate and rhythm with a normal S1 and S2. No gallops, murmurs, or rubs. Normal PMI, no JVD. No pulse deficits. Respiratory: Lungs have equal breath sounds bilaterally, clear to auscultation and percussion. No rales, rhonchi or wheezes noted. No increased work of breathing, no retractions or nasal flaring. Abdomen/GI: Soft, non-tender, with normal bowel sounds. No distension or tympany. No guarding or rebound. No evidence of tenderness throughout. MS/ Extremity: Pulses equal, no cyanosis. Neurovascular intact. Full, normal range of motion. Neuro: Awake and alert, GCS 15, oriented to person, place, time, and situation. Cranial nerves II-XII grossly intact. Motor strength 5/5 in all extremities. Sensory grossly intact. Cerebellar exam normal. Normal gait. Psych: Awake, alert, with orientation to person, place and time. Behavior, mood, and affect are within normal limits. 05:02 ECG was reviewed by the Attending Physician. Vital Signs: 03:33 BP 114 / 71; Pulse 89; Resp 20; Pulse Ox 100% ; Weight 78.47 kg; Height 5 ft. 0 in. ; vc1 Pain 0/10; 04:00 BP 115 / 66; Pulse 90; Resp 20 S; Pulse Ox 98% on R/A; ha1 05:00 BP 107 / 53; Pulse 90; Resp 18 S; Pulse Ox 98% on R/A; ha1 06:05 BP 122 / 57; Pulse 89; Resp 16 S; Pulse Ox 100% on R/A; ha1 07:00 BP 120 / 75; Pulse 87; Resp 18 S; Pulse Ox 98% on R/A; ha1 03:33 Body Mass Index 33.79 (78.47 kg, 152.4 cm) vc1 03:33 Pain Scale: Adult vc1 MDM: 03:10 Patient medically screened. rt 06:43 Differential diagnosis: Pneumonia, pneumothorax, CHF, bronchospasm. Data reviewed: rt vital signs, nurses notes. Consideration of Admission/Observation Escalation of care including admission/observation considered. Patient with significant symptomatic improvement with DuoNeb, stable vital signs, unchanged EKG, labs at baseline. No indications for admission to the hospital at this time. Will prescribe patient DuoNebs, patient to follow-up as an outpatient.. Independent interpretation of the following test(s) in the Emergency Department X-Ray: My interpretation is No pneumonia, pneumothorax, pulmonary edema seen on interpretation of the x-ray images. Test considered but Not performed: CT: Low suspicion for PE, CT angiogram not indicated. Care significantly affected by the following chronic conditions: Congestive Heart Failure. Response to treatment: the patient's symptoms have markedly improved after treatment. 09/16 03:16 Order name: Basic Metabolic Panel; Complete Time: 04:10 rt 09/16 03:16 Order name: CBC with Diff; Complete Time: 04:10 rt 09/16 03:16 Order name: LFT's; Complete Time: 04:10 rt 09/16 03:16 Order name: Magnesium; Complete Time: 04:10 rt 09/16 03:16 Order name: NT PRO-BNP; Complete Time: 04:10 rt 09/16 03:16 Order name: Troponin HS; Complete Time: 04:10 rt 09/16 03:16 Order name: XRAY Chest (1 view) rt 09/16 03:16 Order name: EKG; Complete Time: 03:16 rt 09/16 03:16 Order name: Cardiac monitoring; Complete Time: 03:40 rt 09/16 03:16 Order name: EKG - Nurse/Tech; Complete Time: 03:40 rt 09/16 03:16 Order name: IV Saline Lock; Complete Time: 03:40 rt 09/16 03:16 Order name: Labs collected and sent; Complete Time: 03:40 rt 09/16 03:16 Order name: O2 Per Protocol; Complete Time: 03:40 rt 09/16 03:16 Order name: O2 Sat Monitoring; Complete Time: 03:40 rt EC:02 Rate is 90 beats/min. Rhythm is regular, Paced with ST, T waves, conduction consistent rt with ventricularly paced rhythm. [place] interval is normal. No Q waves. Administered Medications: 03:41 Drug: DuoNeb Nebulize (3:1) (2.5 mg - 0.5 mg) 3 ml Route: Nebulizer; ha1 04:14 Follow up: Response: No adverse reaction ha1 Disposition Summary: 09/16/22 06:27 Discharge Ordered Location: Home rt Problem: an acute exacerbation rt Symptoms: have improved rt Condition: Stable rt Diagnosis - Dyspnea rt Followup: rt - With: Private Physician - When: 2 - 3 days - Reason: Discharge Instructions: - Discharge Summary Sheet rt - Shortness of Breath, Adult rt Forms: - Medication Reconciliation Form rt - Thank You Letter rt - Antibiotic Education rt - Prescription Opioid Use rt - Patient Portal Instructions rt Prescriptions: - ipratropium-albuterol 0.5 mg-3 mg(2.5 mg base)/3 mL Inhalation Solution for Nebulization - nebulize 3 milliliter by INHALATION route every 4 hours as needed; 90 rt milliliter; Refills: 0, Product Selection Permitted Signatures: Dispatcher [employer] Lizbet Beckham RN RN vc1 Dariana Mai RN RN ha1 Contreras Natarajan MD MD rt
[2022-09-16 07:39] VITALS: BP 122/57; O2SAT 100
--- NOTE | 2022-09-16 07:41 | RAD REPORT ---
EXAM DESCRIPTION: RAD - Chest Single View - 09/16/2022 3:41 am CLINICAL HISTORY: DYSPNEA Chest pain. COMPARISON: Chest Single View dated 09/14/2022; Chest Single View dated 09/09/2022; Chest Single View dated 08/11/2022; Chest Single View dated 08/02/2022 FINDINGS: Portable technique limits examination quality. Moderate bilateral pulmonary opacities probably represent pulmonary edema. The heart is moderately en larged in size. Multi lead pacer/defibrillator device present. IMPRESSION: Mild to moderate CHF versus volume overload pattern.
--- NOTE | 2022-09-17 13:13 | EKG ---
Test Date: 2022-09-16 Test Time: 03:29:32 Plastic Cutter: RADHA MEASUREMENT RESULTS: Intervals: Rate: 90 OK: 156 QRSD: 168 QT: 470 QTc: 574 [place]: P: 78 OK: 156 QRS: -79 T: 106 INTERPRETIVE STATEMENTS: AV dual-paced rhythm Biventricular pacemaker detected Abnormal ECG Compared to ECG 09/14/2022 02:51:45 No significant changes Electronically Signed On 09-17-22 13:11:07 CDT by Armond Moore
== END 2022-09-16 07:14 | disposition home or self-care (01) ==
LOC: ER 02:58
DX: R06.00 Dyspnea, unspecified (principal); R05.9 Cough, unspecified; E11.22 Type 2 diabetes mellitus with diabetic chronic kidney disease; I13.0 Hypertensive heart and chronic kidney disease with heart failure and stage 1 through stage 4 chronic kidney disease, or unspecified chronic kidney disease; N18.4 Chronic kidney disease, stage 4 (severe); I50.9 Heart failure, unspecified; I48.91 Unspecified atrial fibrillation; Z79.01 Long term (current) use of anticoagulants; Z79.4 Long term (current) use of insulin; Z95.810 Presence of automatic (implantable) cardiac defibrillator; Z88.1 Allergy status to other antibiotic agents
CPT/HCPCS: 93005; 85025; 80048; 36415; 83735; 80076; 84484; 83880; 71045; 94640; 99284; J7613; J7644

== ENCOUNTER 2022-09-27 02:58 | Inpatient (IN) | payer OTHER ==
--- OUTSIDE RECORDS SUMMARY | 2022-09-27 03:06 | XMS REPORT | Continuity of Care Document ---
:[address] [facility] t Address [address] [place] [address] [address] [place] [address] Care Team Providers Name Role Phone CAMRON ARIAS Primary Care Physician Unavailable Elaine Lamb Attending Clinician Unavailable FAM CRAIG Attending Clinician Unavailable SILVERIO ADAM Attending Clinician Unavailable SRIRAM HEATH Attending Clinician Unavailable Kumar SQUIRES, Sriram Attending Clinician Doctor Unassigned, [place] Attending Clinician Unavailable 2, [facility] Attending [...] IBIKUNLE, FOLUSHO F Attending Clinician Unavailable Ibikunle LABORATORY CLERK, Folusho F Attending Clinician Major SQUIRES, Clare Combs Attending Clinician CLARE GONSALVES Attending Clinician Unavailable Tommy BURK, Luis Alberto Attending Clinician Unavailable Mitchell Garcia MD Attending Clinician Po, [facility] Main Attending Clinician Unavailable Willian SQUIRES, Ortega Lester Attending Clinician [phone] ORTEGA DORSEY Attending Clinician Unavailable Cielo [...] GRAMM, SHANTEL A Attending Clinician Unavailable Gramm LABORATORY CLERK, Shantel A Attending Clinician Sabina Barba MD Attending Clinician SABINA BARBA Attending Clinician Unavailable Ericka Chen Attending Clinician ERICKA ACKERMAN Attending Clinician Unavailable Lab, Ang - Db Attending Clinician Unavailable VIRI PRICE Attending Clinician Unavailable Lab, [facility] Fam Pob I Attending Clinician Unavailable Jose LABORATORY CLERK, Karla Attending Clinician Dee LABORATORY CLERK, Viri Martinez Attending Clinician Teri Samano RN Attending Clinician Unavailable ERICH PANTOJA Attending Clinician Unavailable Pacemaker/Icd, [facility] Attending Clinician Unavailable Omole LABORATORY CLERK, Min Godinez Attending Clinician [phone] OMOLE, MIN GRETCHEN Attending Clinician Unavailable Nita Degroot DO Attending Clinician NITA DEGROOT Attending Clinician Unavailable NITA DEGROOT Attending Clinician Unavailable Provider, [facility] Attending Clinician Unavailable Anedevante LABORATORY CLERK, Monica Attending Clinician MONICA MCCORMICK Attending Clinician Unavailable Calli BURK, Jo More Attending Clinician Unavailable Kirt Thomason DO Attending Clinician Gab Servin MD Attending Clinician GAB SERVIN Attending Clinician Unavailable Cielo Henry RN Attending Clinician Fam Craig MD Attending Clinician [phone] Edgar Cortés MD Attending Clinician [phone] EDGAR CORTÉS Attending Clinician Unavailable Lubna Lal MD Attending Clinician LUBNA LAL Attending Clinician Unavailable , [facility] Echo Room 1 - Attending Clinician Unavailable Visit, [facility] Nurse Attending Clinician Unavailable Dago Gross MDHKaren Attending Clinician Pc, [facility] Vascular Room 1 - Attending Clinician Unavailable ALEXUS RAMOS Attending Clinician Unavailable ALEXUS RAMOS Attending Clinician Unavailable DAGO GROSSHKaren Attending Clinician Unavailable EVAN MARTIN Attending Clinician Unavailable EKATERINA BOUDREAUX Attending Clinician Unavailable Nate LABORATORY CLERK, Madeleine Strauss Attending Clinician Emily Lezama Attending Clinician [facility], [facility] Heart Failure Cardio Attending [...] Policy Number Effective Date Expiration Date Lucy otribio BLAKE/SANDRA [id number] 2019 MEDICARE ADVANTAGE 00:00:00 HUMANA CHOICE [id number] 2022 00:00:00 Problems Condition Condition Condition Status Onset Resolution Last Treating Co mments Source Name Details Category Date Date Treatment Clinician Date Pulmonary Pulmonary Disease Active 2021-02 Uni vers hypertensi hypertensi 2-31 it y of on on 00:00: [address] Branch Presence Presence Disease Active 2021-02 Unive rs of cardiac of cardiac 2-30 it y of resynchron resynchron [place] ization ization 00 Medical therapy therapy Branch defibrilla defibrilla tor tor (WAREHOUSE TEAM MEMBER-D) (WAREHOUSE TEAM MEMBER-D) SOB SOB Disease Active 2021-02 Univers (shortness (shortness 2-29 it y of of breath) of breath) 00:[place]: [place] 00 [place] Atrial Atrial Disease Active Univers tachycardi tachycardi 2-25 it y of a a 00:00: [address] Branch Dizziness Dizziness Disease Active Uni [...] Added automatic ally from request for surgery [id number] Refusal of Refusal of Disease Active 2020-02 U nivers blood blood 2-13 ity of transfusio transfusio 00:00: [place] as ns as 00 Medical patient is patient is Br anch [employer] Osteopenia Osteopenia Disease Active 2020-02 U [...] rs LFTs LFTs 5- ity of 00:00: [place] [facility] Multiple Multiple Disease Active Overview: [...] colon 5-03 ity of polyps polyps 00:00: [address] Branch History of History of Disease Active U nivers pulmonary pulmonary 2-17 ity of embolism embolism 00:00: [place] [facility] Branch ICD ICD Disease Active Univers (implantab (implantab 2-17 it y of le le 00:00: [place] cardiovert cardiovert 00 Me dical er-defibri er-defibri Br anch llator) in llator) in place place Atrial Atrial Disease Active Univers fibrillati fibrillati 1-16 it y of on on 00:00: [address] Branch Syncope Syncope Disease Active Univers 1-15 ity of 00:00: [place] [facility] Branch DM DM Disease Active Univers (diabetes (diabetes 8-31 ity of mellitus), mellitus), 00:00: [place] type 2 type 2 00 Medical with renal with renal Br anch complicati complicati ons ons Anxiety Anxiety Disease Active Univers ity of [facility] CKD CKD Disease Active Univers (chronic (chronic ity of kidney kidney [place] disease) disease) Medica l stage 4, stage 4, Branch GFR 15-29 GFR 15-29 ml/min ml/min Epilepsy Epilepsy Disease Active Unive rs ity of [facility] Esophageal Esophageal Disease Active U nivers reflux reflux ity of [facility] HLD HLD Disease Active Univers (hyperlipi (hyperlipi it y of demia) demia) [facility] HTN HTN Disease Active Univers (hypertens (hypertens it y of ion) ion) [place] [facility] Non-ischem Non-ischem Disease Active U [...] tobacco Passive smoker Un iversity of use [place] [facility] History SDOH University o f Alcohol Std Drinks [place] [facility] History SDOH University o f Alcohol Binge [place] [facility] Branch History SDOH Social Unive rsity of Connections [facility] Med ical Together Branch History SDOH Social Unive rsity of Connections [facility] Medical Branch History SDOH Social Unive rsity of Connections [place] [facility] Membership Branch History SDOH Social Unive rsity of [facility] Medical Meetings Branch Exposure to 2022-03-12 2022-03-22 Not sure University of SARS-CoV-2 (event) 00:00:00 07:50:00 [facility] [place] [facility] Branch Alcohol intake 2022-03-14 2022-03-14 Current University of 00:00:00 00:00:00 non-drinker of [facility] alcohol Branch (finding) History SDOH 2022-02-17 2022-02-17 1 University o f Alcohol Frequency 00:00:00 00:00:00 [facility] edical Branch History SDOH Social 2022-02-17 2022-02-17 5 Unive rsity of Connections Phone 00:00:00 00:00:00 [facility] edical Branch History SDMI Social 2022-02-17 2022-02-17 98 Unive rsity of Connections Living 00:00:00 00:00:00 [place] [facility] History SDOH 2022-02-17 2022-02-17 7 University o f Physical Activity 00:00:00 00:00:00 [facility] edical DPW Branch History SDMI 2022-02-17 2022-02-17 1 University o f Physical Activity 00:00:00 00:00:00 [place] M edical MPS Branch History SDMI 2022-02-17 2022-02-17 5 University o f Financial 00:00:00 00:00:00 [place] [facility] History SDOH Food 2022-02-17 2022-02-17 1 Univers ity of Worry 00:00:00 00:00:00 [place] [facility] History SDOH Food 2022-02-17 2022-02-17 1 Univers ity of Scarcity 00:00:00 00:00:00 [place] [facility] History SDMI 2022-02-17 2022-02-17 2 University o f Transport Med 00:00:00 00:00:00 [place] Medic al Branch History [facility] 2022-02-17 2022-02-17 2 University o f Transport Non-Med 00:00:00 00:00:00 [facility] edical Branch Tobacco use and 2022-02-16 2022-02-16 Smokeless Universit y of exposure 00:00:00 00:00:00 tobacco non-user [facility] dical Branch Tobacco Comment 2022-02-16 2022-02-16 exposed to "a Univer sity of 00:00:00 00:00:00 lot" of passive [place] Med ical smoke from Branch Sex [birth year] Universit y of 00:00:00 00:00:00 [facility] Smoking Status Start Date Stop Date Source Never smoked tobacco [facility] Medications Ordered Filled Start Stop Current Ordering Indication Dosage Frequency Signature Comments Components Source Medication Medication Date Date Medication? Clinician (SIG) Name Name metoprolol Yes [id number] 50mg Take 1 Univers succinate 2-07 tablet by ity o f XL 50 mg 24 00:00: mouth 2 [place] as hr tablet 00 (two) Medical times Branch daily. amiodarone Yes [id number] 200mg Take 1 Univers 200 mg 1-26 tablet by ity of tablet 00:00: mouth [place] 00 daily. Medical Branch amiodarone Yes [id number] 200mg Take 1 Univers 200 mg 1-26 tablet by ity of tablet 00:00: mouth [place] 00 daily. Medical Branch amiodarone Yes [id number] 200mg Take 1 Univers 200 mg 1-26 tablet by ity of tablet 00:00: mouth [place] 00 daily. Medical Branch amiodarone Yes [id number] 200mg Take 1 Univers 200 mg 1-26 tablet by ity of tablet 00:00: mouth [place] 00 daily. Medical Branch amiodarone Yes [id number] 200mg Take 1 Univers 200 mg 1-26 [...] at 6am and 6pm furosemide 2022- Yes [id number] 40mg Take 1 Univers 40 mg 1-10 tablet by ity of tablet 00:00: mouth [place] 00 every Medical morning Branch and evening. metoprolol Yes [id number] 50mg Take 1 Univers succinate 1-10 tablet by ity o f XL 50 mg 24 00:00: mouth 2 [place] hr tablet 00 (two) Medical times Branch daily. apixaban Yes 1358 2.5mg Take 1 Univer s (ELIQUIS) 1-10 tablet by ity o f 2.5 mg 00:00: mouth 2 [place] tablet 00 (two) Medical times Branch daily. Indication s: atrial fibrillati on furosemide Yes [id number] 40mg Take 1 Univers 40 mg 1-10 tablet by ity of tablet 00:00: mouth [place] 00 every Medical morning Branch and evening. metoprolol 2022-0 Yes [id number] 50mg Take 1 Univers succinate 1-10 tablet [...] s: atrial fibrillati on furosemide 0 Yes [id number] 40mg Take 1 Univers 40 mg 1-10 tablet by ity of tablet 00:00: mouth [place] 00 every Medical morning Branch and evening. metoprolol 2022-0 Yes [id number] 50mg Take 1 Univers succinate 1-10 tablet [...] s: atrial fibrillati on furosemide 0 Yes [id number] 40mg Take 1 Univers 40 mg 1-10 tablet by ity of tablet 00:00: mouth [place] 00 every Medical morning Branch and evening. metoprolol 2022-0 Yes [id number] 50mg Take 1 Univers succinate 1-10 tablet [...] s: atrial fibrillati on furosemide 2022-0 Yes [id number] 40mg Take 1 Univers 40 mg 1-10 tablet by ity of tablet 00:00: mouth [place] 00 every Medical morning Branch and evening. metoprolol 2022-0 Yes [id number] 50mg Take 1 Univers succinate 1-10 tablet [...] s: atrial fibrillati on furosemide 2022-0 Yes [id number] 40mg Take 1 Univers 40 mg 1-10 tablet by ity of tablet 00:00: mouth [place] 00 every Medical morning Branch and evening. metoprolol 2022-0 Yes [id number] 50mg Take 1 Univers succinate 1-10 tablet [...] s: atrial fibrillati on furosemide 2022-0 Yes [id number] 40mg Take 1 Univers 40 mg 1-10 tablet by ity of tablet 00:00: mouth [place] 00 every Medical morning Branch and evening. metoprolol 2022-0 Yes [id number] 50mg Take 1 Univers succinate 1-10 tablet [...] s: atrial fibrillati on furosemide 2022-0 Yes [id number] 40mg Take 1 Univers 40 mg 1-10 tablet by ity of tablet 00:00: mouth [place] 00 every Medical morning Branch and evening. apixaban 2022-0 Yes 1358 2.5mg Take 1 Univer s (ELIQUIS) 1-10 tablet by ity o f 2.5 mg 00:00: mouth 2 [place] tablet 00 (two) Medical times Branch daily. Indication s: atrial fibrillati on furosemide 2023-0 Yes [id number] 40mg Take 1 Univers 40 mg 1-10 tablet by ity of tablet 00:00: mouth [place] 00 every Medical morning Branch and evening. apixaban Yes 1358 2.5mg Take 1 Univer s (ELIQUIS) 1-10 tablet by ity o f 2.5 mg 00:00: mouth 2 [place] tablet 00 (two) Medical times Branch daily. Indication s: atrial fibrillati on metoprolol 202- No [id number] 50mg Take 1 Univers succinate 1-10 02-06 tablet by ity of XL 50 mg 24 00:00: 00:00 mouth 2 [place] hr tablet 00 :00 (two) Medical times Branch daily. insulin NPH Yes [id number] 20U inject 20 Univers 100 unit/mL 1-02 Units ity of injection 00:00: under the [place] 00 skin every Medical morning. Branch insulin NPH Yes [id number] 20U inject 20 Univers 100 unit/mL 1-02 Units ity of injection 00:00: under the [place] 00 skin every Medical morning. Branch insulin NPH Yes [id number] 20U inject 20 Univers 100 unit/mL 1-02 Units ity of injection 00:00: under the [place] 00 skin every Medical morning. Branch insulin NPH Yes [id number] 20U inject 20 Univers 100 unit/mL 1-02 Units ity of injection 00:00: under the [place] 00 skin every Medical morning. Branch insulin NPH Yes [id number] 20U inject 20 Univers 100 unit/mL 1-02 Units ity of injection 00:00: under the [place] 00 skin every Medical morning. Branch insulin NPH Yes [id number] 20U inject 20 Univers 100 unit/mL 1-02 Units ity of injection 00:00: under the [place] 00 skin every Medical morning. Branch insulin NPH Yes [id number] 20U inject 20 Univers 100 unit/mL 1-02 Units ity of injection 00:00: under the [place] 00 skin every Medical morning. Branch insulin NPH Yes [id number] 20U inject 20 Univers 100 unit/mL 1-02 Units ity of injection 00:00: under the [place] 00 skin every Medical morning. Branch insulin NPH 2022-0 Yes [id number] 20U inject 20 Univers 100 unit/mL 1-02 Units ity of injection 00:00: under the [place] 00 skin every Medical morning. Branch insulin NPH 2022-0 Yes [id number] 20U inject 20 Univers 100 unit/mL 1-02 Units ity of injection 00:00: under the [place] 00 skin every Medical morning. Branch insulin NPH 2022-0 Yes [id number] 20U inject 20 Univers 100 unit/mL 1-02 [...] 03:00: First dose [place] 00 on Sat [facility] 02/18/22 Branch at 2100, Until Discontinu ed, Routine insulin NPH 2022-0 Yes [id number] 15U inject 15 Univers 100 unit/mL 1-01 Units ity of injection 00:00: under the [place] 00 skin at Medical bedtime. Branch polyethylen 2022-0 Yes [id number] 17g Take 1 Univers e glycol 1- Packet by ity of 3350 17 00:00: mouth [place] gram powder 00 every 24 Medi sandra (twenty-fo Branch ur) hours as needed for Constipati on. insulin NPH 2022-0 Yes [id number] 15U inject 15 Univers 100 unit/mL 1-01 Units ity of injection 00:00: under the [place] 00 skin at Medical bedtime. Branch polyethylen 0 Yes [id number] 17g Take 1 Univers e glycol 1-01 Packet by ity of 3350 17 00:00: mouth [place] gram powder 00 every 24 Medi sandra (twenty-fo Branch ur) hours as needed for Constipati on. insulin NPH Yes [id number] 15U inject 15 Univers 100 unit/mL 1-01 Units ity of injection 00:00: under the [place] 00 skin at Medical bedtime. Branch polyethylen 0 Yes [id number] 17g Take 1 Univers e glycol 1-01 Packet by ity of 3350 17 00:00: mouth [place] gram powder 00 every 24 Medi sandra (twenty-fo Branch ur) hours as needed for Constipati on. insulin NPH Yes [id number] 15U inject 15 Univers 100 unit/mL 1-01 Units ity of injection 00:00: under the [place] 00 skin at Medical bedtime. Branch polyethylen 0 Yes [id number] 17g Take 1 Univers e glycol 1-01 Packet by ity of 3350 17 00:00: mouth [place] gram powder 00 every 24 Medi sandra (twenty-fo Branch ur) hours as needed for Constipati on. insulin NPH Yes [id number] 15U inject 15 Univers 100 unit/mL 1-01 Units ity of injection 00:00: under the [place] 00 skin at Medical bedtime. Branch polyethylen 0 Yes [id number] 17g Take 1 Univers e glycol 1-01 Packet by ity of 3350 17 00:00: mouth [place] gram powder 00 every 24 Medi sandra (twenty-fo Branch ur) hours as needed for Constipati on. insulin NPH Yes [id number] 15U inject 15 Univers 100 unit/mL 1-01 Units ity of injection 00:00: under the [place] 00 skin at Medical bedtime. Branch polyethylen 0 Yes [id number] 17g Take 1 Univers e glycol 1-01 Packet by ity of 3350 17 00:00: mouth [place] gram powder 00 every 24 Medi sandra (twenty-fo Branch ur) hours as needed for Constipati on. insulin NPH Yes [id number] 15U inject 15 Univers 100 unit/mL 1-01 Units ity of injection 00:00: under the [place] 00 skin at Medical bedtime. Branch polyethylen 2022-0 Yes [id number] 17g Take 1 Univers e glycol 1-01 Packet by ity of 3350 17 00:00: mouth [place] gram powder 00 every 24 Medi sandra (twenty-fo Branch ur) hours as needed for Constipati on. insulin NPH 2022-0 Yes [id number] 15U inject 15 Univers 100 unit/mL 1-01 Units ity of injection 00:00: under the [place] 00 skin at Medical bedtime. Branch polyethylen 2022-0 Yes [id number] 17g Take 1 Univers e glycol 1-01 Packet by ity of 3350 17 00:00: mouth [place] gram powder 00 every 24 Medi sandra (twenty-fo Branch ur) hours as needed for Constipati on. insulin NPH 2022-0 Yes [id number] 15U inject 15 Univers 100 unit/mL 1-01 Units ity of injection 00:00: under the [place] 00 skin at Medical bedtime. Branch polyethylen 2022-0 Yes [id number] 17g Take 1 Univers e glycol 1-01 Packet by ity of 3350 17 00:00: mouth [place] gram powder 00 every 24 Medi sandra (twenty-fo Branch ur) hours as needed for Constipati on. insulin NPH 2022-0 Yes [id number] 15U inject 15 Univers 100 unit/mL 1-01 Units ity of injection 00:00: under the [place] 00 skin at Medical bedtime. Branch polyethylen 2022-0 Yes [id number] 17g Take 1 Univers e glycol 1-01 Packet by ity of 3350 17 00:00: mouth [place] gram powder 00 every 24 Medi sandra (twenty-fo Branch ur) hours as needed for Constipati on. insulin NPH 2022-0 Yes [id number] 15U inject 15 Univers 100 unit/mL 1-01 Units ity of injection 00:00: under the [place] 00 skin at Medical bedtime. Branch polyethylen 2022-0 Yes [id number] 17g Take 1 Univers e glycol 1-01 Packet by ity of 3350 17 00:00: mouth [place] gram powder 00 every 24 Medi sandra (twenty-fo Branch ur) hours as needed for Constipati on. furosemide 2022- No [id number] 40mg Take 1 Univers 40 mg 02-19 tablet by ity of tablet 00:00: 05:59 mouth [place] 00 :00 every Medical morning Branch and evening for 30 days. furosemide 2022- No [id number] 40mg Take 1 Univers 40 mg 02-19 tablet by ity of tablet 00:00: 05:59 mouth [place] 00 :00 every Medical morning Branch and evening for 30 days. furosemide 2022- No [id number] 40mg Take 1 Univers 40 mg 02-19 tablet by ity of tablet 00:00: 00:00 mouth [place] 00 :00 every Medical morning Branch and evening for 30 days. furosemide 2022- No [id number] 40mg Take 1 Univers 40 mg 02-19 [...] Until Discontinu ed, Routine sulfur 2021-02- No [id number] 5mL 5 mL, Un araseli hexafluorid 02-17 9103 Intravenou i ty of e microsphr 15:00: 15:00 s, ONCE, 1 [place] (LUMASON) 00 :00 dose, On Medica l injection 5 Sun Branch mL 02/17/22 at 0900, Routine
store team member approving Restricted medication : KUMARSRIRAM polyethylen 2021-02 Yes 17g 17 g, Unive rs e glycol 2-30 Oral, ity of 3350 powder 05:09: [id number], [place] 17 g 36 Starting Medical on [place] Branch 02/16/22 at 2309, Until Discontinu ed, Routine, Constipati on phenytoin 2021-02 Yes 200mg 200 mg, Univ ers Extended 2-30 Oral, QHS, ity o f (DILANTIN 03:00: First dose [place] KAPSEAL) 00 on [facility] Medical capsule 200 02/16/22 Bran ch mg at 2100, Until Discontinu ed, Routine insulin NPH 2021-02 Yes 15U 15 Units, U nivers (HUMULIN N) 2-30 Subcutaneo it y of injection 03:00: [place], QHS, [place] 15 Units 00 First dose Medic al on [facility] Branch 02/16/22 at 2100, Until Discontinu ed, Routine atorvastati 2021-02 Yes 40mg 40 mg, Univ ers n (LIPITOR) 2-30 Oral, QHS, it y of tablet 40 03:00: First dose [place] mg 00 on [facility] 02/16/22 Branch at 2100, Until Discontinu ed, Routine levETIRAcet 2021-02 Yes 500mg 500 mg, Un araseli am (KEPPRA) 2-30 Oral, BID, it y of tablet 500 02:00: First dose [place] mg 00 on [facility] 02/16/22 Branch at 2000, Until Discontinu ed, Routine apixaban 2021-02 Yes 1358 5mg 5 mg, Univers (ELIQUIS) 2-30 Oral, BID, ity of tablet 5 mg 02:00: First dose [place] 00 on [facility] 02/16/22 Branch at 2000, Until Discontinu ed, Routine
Indicatio ns: Non-Valvul ar Atrial Fibrillati on furosemide 2021-02- No 40mg 40 mg, Univ ers (LASIX) 202-19 Slow IV ity of injection 02:00: 18:11 Push, [place] 40 mg 00 :42 Q12H, Medical First dose Branch on [facility] 02/16/22 at 2000, Until Discontinu ed, Routine metoprolol 2021-02- No 50mg 50 mg, Univ ers succinate 202-18 Oral, BID, ity of XL (TOPROL 02:00: 14:37 First dose [place] XL) tablet 00 :05 on [facility] Medical 50 mg 02/16/22 Branch [...] Branch 02/16/22 at 1100, JACQUI semaglutide Yes [id number] .25mg inject Univers (OZEMPIC) 8-17 0.25 mg ity of 0.25 mg or 00:00: under the [place] 0.5 mg(2 00 skin Medical mg/1.5 mL) weekly. Branch PnIj semaglutide Yes [id number] .25mg inject Univers (OZEMPIC) 8-17 0.25 mg ity of 0.25 mg or 00:00: under the [place] 0.5 mg(2 00 skin Medical mg/1.5 mL) weekly. Branch PnIj semaglutide Yes [id number] .25mg inject Univers (OZEMPIC) 8-17 0.25 mg ity of 0.25 mg or 00:00: under the [place] 0.5 mg(2 00 skin Medical mg/1.5 mL) weekly. Branch PnIj semaglutide Yes [id number] .25mg inject Univers (OZEMPIC) 8-17 0.25 mg ity of 0.25 mg or 00:00: under the [place] 0.5 mg(2 00 skin Medical mg/1.5 mL) weekly. Branch PnIj semaglutide 0 Yes [id number] .25mg inject Univers (OZEMPIC) 8-17 0.25 mg ity of 0.25 mg or 00:00: under the [place] 0.5 mg(2 00 skin Medical mg/1.5 mL) weekly. Branch PnIj semaglutide 0 Yes [id number] .25mg inject Univers (OZEMPIC) 8-17 0.25 mg ity of 0.25 mg or 00:00: under the [place] 0.5 mg(2 00 skin Medical mg/1.5 mL) weekly. Branch PnIj semaglutide 0 Yes [id number] .25mg inject Univers (OZEMPIC) 8-17 0.25 mg ity of 0.25 mg or 00:00: under the [place] 0.5 mg(2 00 skin Medical mg/1.5 mL) weekly. Branch PnIj semaglutide Yes [id number] .25mg inject Univers (OZEMPIC) 8-17 0.25 mg ity of 0.25 mg or 00:00: under the [place] 0.5 mg(2 00 skin Medical mg/1.5 mL) weekly. Branch PnIj semaglutide Yes [id number] .25mg inject Univers (OZEMPIC) 8-17 0.25 mg ity of 0.25 mg or 00:00: under the [place] 0.5 mg(2 00 skin Medical mg/1.5 mL) weekly. Branch PnIj semaglutide Yes [id number] .25mg inject Univers (OZEMPIC) 8-17 0.25 mg ity of 0.25 mg or 00:00: under the [place] 0.5 mg(2 00 skin Medical mg/1.5 mL) weekly. Branch PnIj semaglutide 2021-0 Yes [id number] .25mg inject Univers (OZEMPIC) 8-17 0.25 mg ity of 0.25 mg or 00:00: under the [place] 0.5 mg(2 00 skin Medical mg/1.5 mL) weekly. Branch PnIj semaglutide Yes [id number] .25mg inject Univers (OZEMPIC) 8-17 0.25 mg ity of 0.25 mg or 00:00: under the [place] 0.5 mg(2 00 skin Medical mg/1.5 mL) weekly. Branch PnIj semaglutide 2021-0 Yes [id number] .25mg inject Univers (OZEMPIC) 8-17 0.25 mg ity of 0.25 mg or 00:00: under the [place] 0.5 mg(2 00 skin Medical mg/1.5 mL) weekly. Branch PnIj semaglutide 2021-0 Yes [id number] .25mg inject Univers (OZEMPIC) 8-17 0.25 mg [...] capsules in the evening. amLODIPine 2-0 Yes [id number] 10mg Take 1 U nivers 10 mg 6-13 tablet by ity of tablet 00:00: mouth [place] 00 daily. Medical Branch amLODIPine 2-0 Yes [id number] 10mg Take 1 U nivers 10 mg 6-13 tablet by ity of tablet 00:00: mouth [place] 00 daily. Medical Branch amLODIPine 2-0 Yes [id number] 10mg Take 1 U nivers 10 mg 6-13 tablet by ity of tablet 00:00: mouth [place] 00 daily. Medical Branch amLODIPine 2-0 Yes [id number] 10mg Take 1 U nivers 10 mg 6-13 tablet by ity of tablet 00:00: mouth [place] 00 daily. Medical Branch amLODIPine 2-0 Yes [id number] 10mg Take 1 U nivers 10 mg 6-13 tablet by ity of tablet 00:00: mouth [place] 00 daily. Medical Branch amLODIPine 2021-0 2022- No [id number] 10mg Take 1 Univers 10 mg 6-13 01-10 tablet by ity of tablet 00:00: 00:00 mouth [place] 00 :00 daily. Medical Branch amLODIPine 2021-0 2022- No [id number] 10mg Take 1 Univers 10 mg 6-13 [...] s: atrial fibrillati on OXCARBAZEPI 2-0 Yes [id number] TAKE 1 Univers [place] 150 mg 3-08 TABLET 2 X ity of tablet 00:00: A DAY FOR [place] 00 1 WEEK Medical THEN 2 Branch TABS 2X DAY FOR 1 WEEK 3 TABLES 2XADAY OXCARBAZEPI 2022-0 Yes [id number] TAKE 1 [facility] [place] 150 mg 3-08 TABLET 2 X ity of tablet 00:00: A DAY FOR [place] 00 1 WEEK Medical THEN 2 Branch TABS 2X DAY FOR 1 WEEK 3 TABLES 2XADAY OXCARBAZEPI 2022-0 Yes [id number] TAKE 1 [facility] [place] 150 mg 3-08 TABLET 2 X ity of tablet 00:00: A DAY FOR [place] 00 1 WEEK Medical THEN 2 Branch TABS 2X DAY FOR 1 WEEK 3 TABLES 2XADAY OXCARBAZEPI 2022-0 Yes [id number] TAKE 1 Univers [place] 150 mg 3-08 TABLET 2 X ity of tablet 00:00: A DAY FOR [place] 1 WEEK Medical THEN 2 Branch TABS 2X DAY FOR 1 WEEK 3 TABLES 2XADAY OXCARBAZEPI 2022-0 Yes [id number] TAKE 1 [facility] [place] 150 mg 3-08 TABLET 2 X ity of tablet 00:00: A DAY FOR [place] 1 WEEK Medical THEN 2 Branch TABS 2X DAY FOR 1 WEEK 3 TABLES 2XADAY OXCARBAZEPI 2022-0 Yes [id number] TAKE 1 [facility] [place] 150 mg 3-08 TABLET 2 X ity of tablet 00:00: A DAY FOR [place] 1 WEEK Medical THEN 2 Branch TABS 2X DAY FOR 1 WEEK 3 TABLES 2XADAY OXCARBAZEPI 2022-0 Yes [id number] TAKE 1 [facility] [place] 150 mg 3-08 TABLET 2 X ity of tablet 00:00: A DAY FOR [place] 00 1 WEEK Medical THEN 2 Branch TABS 2X DAY FOR 1 WEEK 3 TABLES 2XADAY OXCARBAZEPI 2022-0 Yes [id number] TAKE 1 [facility] [place] 150 mg 3-08 TABLET 2 X ity of tablet 00:00: A DAY FOR [place] 00 1 WEEK Medical THEN 2 Branch TABS 2X DAY FOR 1 WEEK 3 TABLES 2XADAY OXCARBAZEPI 2022-0 Yes [id number] TAKE 1 [facility] [place] 150 mg 3-08 TABLET 2 X ity of tablet 00:00: A DAY FOR [place] 00 1 WEEK Medical THEN 2 Branch TABS 2X DAY FOR 1 WEEK 3 TABLES 2XADAY OXCARBAZEPI 2022-0 Yes [id number] TAKE 1 [facility] [place] 150 mg 3-08 TABLET 2 X ity of tablet 00:00: A DAY FOR [place] 00 1 WEEK Medical THEN 2 Branch TABS 2X DAY FOR 1 WEEK 3 TABLES 2XADAY OXCARBAZEPI 2022-0 Yes [id number] TAKE 1 [facility] [place] 150 mg 3-08 TABLET 2 X ity of tablet 00:00: A DAY FOR [place] 1 WEEK Medical THEN 2 Branch TABS 2X DAY FOR 1 WEEK 3 TABLES 2XADAY OXCARBAZEPI 2022-0 Yes [id number] TAKE 1 [facility] [place] 150 mg 3-08 TABLET 2 X ity of tablet 00:00: A DAY FOR [place] 1 WEEK Medical THEN 2 Branch TABS 2X DAY FOR 1 WEEK 3 TABLES 2XADAY OXCARBAZEPI 2022-0 Yes [id number] TAKE 1 [facility] [place] 150 mg 3-08 TABLET 2 X ity of tablet 00:00: A DAY FOR [place] 1 WEEK Medical THEN 2 Branch TABS 2X DAY FOR 1 WEEK 3 TABLES 2XADAY OXCARBAZEPI 2022-0 Yes [id number] TAKE 1 [facility] [place] 150 mg 3-08 TABLET 2 X ity of tablet 00:00: A DAY FOR [place] 1 WEEK Medical THEN 2 Branch TABS [...] 6am and 6pm insulin NPH 0 Yes [id number] 10U inject Univers (NOVOLIN N 04-13 10-15 ity of NPH U-100 00:00: Units [place] INSULIN) 00 under the Medica l 100 unit/mL skin every Br anch injection evening. insulin NPH Yes [id number] 10U inject Univers (NOVOLIN N 04-13 10-15 ity of NPH U-100 00:00: Units [place] INSULIN) 00 under the Medica l 100 unit/mL skin every Br anch injection evening. insulin NPH Yes [id number] 10U inject Univers (NOVOLIN N 04-13 10-15 ity of NPH U-100 00:00: Units [place] INSULIN) 00 under the Medica l 100 unit/mL skin every Br anch injection evening. insulin NPH 2022- No [id number] 10U inject Univers (NOVOLIN N 04-13 10-15 ity of NPH U-100 00:00: 00:00 Units [place] INSULIN) 00 :00 under the Medica l 100 unit/mL skin every Br anch injection evening. furosemide 0 Yes [id number] 20mg Take 1 Univers 20 mg 1-27 tablet by ity of tablet 00:00: mouth 00 daily. Medical Branch levETIRAcet 2021-0 Yes [id number] 500mg Take 1 Univers am 500 mg 1-27 tablet by ity o f tablet 00:00: mouth 2 00 (two) Medical times Branch daily. furosemide 2021-0 Yes [id number] 20mg Take 1 Univers 20 mg 1-27 tablet by ity of tablet 00:00: mouth [place] 00 daily. Medical Branch levETIRAcet 2021-0 Yes [id number] 500mg Take 1 Univers am 500 mg 1-27 tablet by ity o f tablet 00:00: mouth 2 [place] 00 (two) Medical times Branch daily. furosemide 2022-0 Yes [id number] 20mg Take 1 Univers 20 mg 1-27 tablet by ity of tablet 00:00: mouth 00 daily. Medical Branch levETIRAcet 2021-0 Yes [id number] 500mg Take 1 Univers am 500 mg 1-27 tablet by ity o f tablet 00:00: mouth (two) Medical times Branch daily. levETIRAcet 2021-0 Yes [id number] 500mg Take 1 Univers am 500 mg 1-27 tablet by ity o f tablet 00:00: mouth (two) Medical times Branch daily. levETIRAcet 2021-0 Yes [id number] 500mg Take 1 Univers am 500 mg 1-27 tablet by ity o f tablet 00:00: mouth (two) Medical times Branch daily. levETIRAcet 2021-0 Yes [id number] 500mg Take 1 Univers am 500 mg 1-27 tablet by ity o f tablet 00:00: mouth (two) Medical times Branch daily. levETIRAcet 2021-0 Yes [id number] 500mg Take 1 Univers am 500 mg 1-27 tablet by ity o f tablet 00:00: mouth (two) Medical times Branch daily. levETIRAcet 2021-0 Yes [id number] 500mg Take 1 Univers am 500 mg 1-27 tablet by ity o f tablet 00:00: mouth (two) Medical times Branch daily. levETIRAcet 2021-0 Yes [id number] 500mg Take 1 Univers am 500 mg 1-27 tablet by ity o f tablet 00:00: mouth (two) Medical times Branch daily. levETIRAcet 2021-0 Yes [id number] 500mg Take 1 Univers am 500 mg 1-27 tablet by ity o f tablet 00:00: mouth (two) Medical times Branch daily. levETIRAcet 2-0 Yes [id number] 500mg Take 1 Univers am 500 mg 1-27 tablet by ity o f tablet 00:00: mouth (two) Medical times Branch daily. levETIRAcet 2-0 Yes [id number] 500mg Take 1 Univers am 500 mg 1-27 tablet by ity o f tablet 00:00: mouth 2 [place] 00 (two) Medical times Branch daily. levETIRAcet 2021-0 Yes [id number] 500mg Take 1 Univers am 500 mg 1-27 tablet by ity o f tablet 00:00: mouth (two) Medical times Branch daily. levETIRAcet 2021-0 Yes [id number] 500mg Take 1 [facility] am 500 mg 1-27 tablet by ity o f tablet 00:00: mouth 2 (two) Medical times Branch daily. furosemide 2021-0 3- No [id number] 20mg Take 1 Univers 20 mg 1-27 02-19 tablet by ity of tablet 00:00: 00:00 mouth [place] 00 :00 daily. Medical Branch pantoprazol 0 Yes [id number] 40mg Take 1 Univers e 40 mg EC 1-21 tablet by ity of tablet 00:00: mouth 00 daily. Medical Branch pantoprazol 0 Yes [id number] 40mg Take 1 Univers e 40 mg EC 1-21 tablet by ity of tablet 00:00: mouth 00 daily. Medical Branch pantoprazol 0 Yes [id number] 40mg Take 1 Univers e 40 mg EC 1-21 tablet by ity of tablet 00:00: mouth 00 daily. Medical Branch pantoprazol 2021-0 Yes [id number] 40mg Take 1 Univers e 40 mg EC 1-21 tablet by ity of tablet 00:00: mouth [place] 00 daily. Medical Branch pantoprazol 2021-0 Yes [id number] 40mg Take 1 Univers e 40 mg EC 1-21 tablet by ity of tablet 00:00: mouth 00 daily. Medical Branch pantoprazol 2021-0 Yes [id number] 40mg Take 1 Univers e 40 mg EC 1-21 tablet by ity of tablet 00:00: mouth [place] 00 daily. Medical Branch pantoprazol 2021-0 Yes [id number] 40mg Take 1 Univers e 40 mg EC 1-21 tablet by ity of tablet 00:00: mouth [place] 00 daily. Medical Branch pantoprazol 2021-0 Yes [id number] 40mg Take 1 Univers e 40 mg EC 1-21 tablet by ity of tablet 00:00: mouth [place] 00 daily. Medical Branch pantoprazol 2021-0 Yes [id number] 40mg Take 1 Univers e 40 mg EC 1-21 tablet by ity of tablet 00:00: mouth [place] 00 daily. Medical Branch pantoprazol Yes [id number] 40mg Take 1 Univers e 40 mg EC 1-21 tablet by ity of tablet 00:00: mouth [place] 00 daily. Medical Branch pantoprazol Yes [id number] 40mg Take 1 Univers e 40 mg EC 1-21 tablet by ity of tablet 00:00: mouth [place] 00 daily. Medical Branch pantoprazol Yes [id number] 40mg Take 1 Univers e 40 mg EC 1-21 tablet by ity of tablet 00:00: mouth [place] 00 daily. Medical Branch pantoprazol Yes [id number] 40mg Take 1 Univers e 40 mg EC 1-21 tablet by ity of tablet 00:00: mouth [place] 00 daily. Medical Branch pantoprazol Yes [id number] 40mg Take 1 Univers e 40 mg EC 1-21 tablet by ity of tablet 00:00: mouth [place] 00 daily. Medical Branch atorvastati 2020-02 Yes [id number] 40mg Take 1 Univers n 40 mg 2-14 tablet by ity of tablet 00:00: mouth at [place] 00 bedtime. Medical Branch insulin 2020-02 Yes 8U inject 8 Univer s regular 2-14 Units ity of human 00:00: under the [place] (NOVOLIN R 00 skin Medical REGULAR daily. Branch U-100 Daily at [facility]) 100 noon unit/mL injection atorvastati 2020-02 Yes [id number] 40mg Take 1 Univers n 40 mg 2-14 tablet by ity of tablet 00:00: mouth at [place] 00 bedtime. Medical Branch insulin 2020-02 Yes 8U inject 8 Univer s regular 2-14 Units ity of human 00:00: under the [place] (NOVOLIN R 00 skin Medical REGULAR daily. Branch U-100 Daily at [facility]) 100 noon unit/mL injection atorvastati 2020-02 Yes [id number] 40mg Take 1 Univers n 40 mg 2-14 tablet by ity of tablet 00:00: mouth at [place] 00 bedtime. Medical Branch insulin 2020-02 Yes 8U inject 8 Univer s regular 2-14 Units ity of human 00:00: under the [place] (NOVOLIN R 00 skin Medical REGULAR daily. Branch U-100 Daily at [facility]) 100 noon unit/mL injection atorvastati 2020-02 Yes [id number] 40mg Take 1 Univers n 40 mg 2-14 tablet by ity of tablet 00:00: mouth at [place] [address] bedtime. Medical Branch atorvastati 2020-02 Yes [id number] 40mg Take 1 Univers n 40 mg 2-14 tablet by ity of tablet 00:00: mouth at [place] [address] bedtime. Medical Branch atorvastati 2020-02 Yes [id number] 40mg Take 1 Univers n 40 mg 2-14 tablet by ity of tablet 00:00: mouth at [place] [address] bedtime. Medical Branch atorvastati 2020-02 Yes [id number] 40mg Take 1 Univers n 40 mg 2-14 tablet by ity of tablet 00:00: mouth at [place] [address] bedtime. Medical Branch atorvastati 2020-02 Yes [id number] 40mg Take 1 Univers n 40 mg 2-14 tablet by ity of tablet 00:00: mouth at [place] [address] bedtime. Medical Branch atorvastati 2020-02 Yes [id number] 40mg Take 1 Univers n 40 mg 2-14 tablet by ity of tablet 00:00: mouth at [place] [address] bedtime. Medical Branch atorvastati 2020-02 Yes [id number] 40mg Take 1 Univers n 40 mg 2-14 tablet by ity of tablet 00:00: mouth at [place] [address] bedtime. Medical Branch atorvastati 2020-02 Yes [id number] 40mg Take 1 Univers n 40 mg 2-14 tablet by ity of tablet 00:00: mouth at [place] [address] bedtime. Medical Branch atorvastati 2020-02 Yes [id number] 40mg Take 1 Univers n 40 mg 2-14 tablet by ity of tablet 00:00: mouth at [place] [address] bedtime. Medical Branch atorvastati 2020-02 Yes [id number] 40mg Take 1 Univers n 40 mg 2-14 tablet by ity of tablet 00:00: mouth at [place] [address] bedtime. Medical Branch atorvastati 2020-02 Yes [id number] 40mg Take 1 Univers n 40 mg 2-14 tablet by ity of tablet 00:00: mouth at [place] [address] bedtime. Medical Branch insulin 2020-023- No 8U inject 8 Unive rs regular 2-14 02-19 Units ity of human 00:00: 00:00 under the [place] (NOVOLIN R 00 :00 skin Medical REGULAR daily. Branch U-100 Daily at [facility]) 100 noon unit/mL injection [...] 2020-12-03 Completed University o f Polysaccharide, 00:00:00 [place] Med ical PPSV23 (PNEUMOVAX) Branch Influenza Virus [...] Universit y of Conjugate, PCV13 00:00:00 [facility] dical (Prevnar 13) Branch Pneumococcal 13 2019-12-19 Completed Universit y of Conjugate, PCV13 00:00:00 [facility] dical (Prevnar 13) Branch Pneumococcal 13 2019-12-19 Completed Universit y of Conjugate, PCV13 00:00:00 [facility] dical (Prevnar 13) Branch Pneumococcal 13 2019-12-19 Completed Universit y of Conjugate, PCV13 00:00:00 [facility] dical (Prevnar 13) Branch Pneumococcal 13 2019-12-19 Completed Universit y of Conjugate, PCV13 00:00:00 [facility] dical (Prevnar 13) Branch Pneumococcal 13 2019-12-19 Completed Universit y of Conjugate, PCV13 00:00:00 [facility] dical (Prevnar 13) Branch Pneumococcal 13 2019-12-19 [...] Universit y of Conjugate, PCV13 00:00:00 [place] dical (Prevnar 13) Branch Pneumococcal 13 2019-12-19 Completed Universit y of Conjugate, PCV13 00:00:00 [facility] dical (Prevnar 13) Branch Pneumococcal 13 2019-12-19 Completed Universit y of Conjugate, PCV13 00:00:00 [facility] dical (Prevnar 13) Branch Influenza Virus 2019-11-22 [...] Dosage 2018-03-25 Completed Unive rsity of 00:00:00 [place] [facility] HEP B, Adult Dosage 2018-03-25 Completed Unive rsity of 00:00:00 [facility] [place] [facility] Branch HEP B, Adult Dosage 2018-03-25 Completed Unive rsity of 00:00:00 [facility] [place] [facility] Branch HEP B, Adult Dosage 2018-03-25 Completed Unive rsity of 00:00:00 [place] [facility] HEP B, Adult Dosage 2018-03-25 Completed Unive rsity of 00:00:00 [place] [facility] HEP B, Adult Dosage 2018-03-25 Completed Unive rsity of 00:00:00 [place] [facility] HEP B, Adult Dosage 2018-03-25 Completed Unive rsity of 00:00:00 [place] [facility] HEP B, Adult Dosage 2018-03-25 Completed Unive rsity of 00:00:00 [facility] [place] [facility] Branch HEP B, Adult Dosage 2018-03-25 Completed Unive rsity of 00:00:00 [place] [facility] HEP B, Adult Dosage 2018-03-25 [...] Dosage 2017-09-05 Completed Unive rsity of 00:00:00 [place] [facility] HEP B, Adult Dosage 2017-09-05 Completed Unive rsity of 00:00:00 [place] [facility] HEP B, Adult Dosage 2017-09-05 Completed Unive rsity of 00:00:00 [place] [facility] HEP B, Adult Dosage 2017-09-05 Completed Unive rsity of 00:00:00 [place] [facility] HEP B, Adult Dosage 2017-09-05 Completed Unive rsity of 00:00:00 [place] [facility] HEP B, Adult Dosage 2017-09-05 Completed Unive rsity of 00:00:00 [place] [facility] HEP B, Adult Dosage 2017-09-05 Completed Unive rsity of 00:00:00 [place] [facility] HEP B, Adult Dosage 2017-09-05 Completed Unive rsity of 00:00:00 [place] [facility] HEP B, Adult Dosage 2017-09-05 Completed Unive rsity of 00:00:00 [place] [facility] HEP B, Adult Dosage 2017-09-05 Completed Unive rsity of 00:00:00 [place] [facility] HEP B, Adult Dosage 2017-09-05 Completed Unive rsity of 00:00:00 [place] [facility] HEP B, Adult Dosage 2017-09-05 Completed Unive rsity of 00:00:00 [facility] Pneumococcal 13 2015-02-19 Completed Universit y of [...] ical PPSV23 (PNEUMOVAX) Branch Pneumococcal 2011-02-19 Completed [place] o f Polysaccharide, 00:00:00 [place] Med ical PPSV23 (PNEUMOVAX) Branch Pneumococcal 2011-02-19 Completed [place] o f Polysaccharide, 00:00:00 [place] Med ical PPSV23 (PNEUMOVAX) Branch Vital Signs Vital Name Observation Time Observation Value Comments Source Systolic blood 2022-03-16 14:28:00 128 mm[Hg] Univer sity of pressure [facility] Diastolic blood 2022-03-16 14:28:00 70 mm[Hg] Unive rsity of [facility] Heart rate 2022-03-16 14:28:00 93 /min [facility] Body temperature 2022-03-16 14:28:00 35.67 [facility]izz [facility] [place] [facility] rate 2022-03-16 14:28:00 17 /min [facility] Body weight 2022-03-16 14:28:00 81.058 kg [facility] BMI 2022-03-16 14:28:00 34.90 kg/m2 [facility] Oxygen saturation in 2022-03-16 14:28:00 98 /min [facility] Arterial blood by [facility] Pulse oximetry Branch Systolic blood 2022-03-14 19:37:00 138 mm[Hg] Univer sity of pressure [facility] Diastolic blood 2022-03-14 19:37:00 87 mm[Hg] Unive rsity of pressure [facility] Heart rate 2022-03-14 19:37:00 94 /min [facility] Respiratory rate 2022-03-14 19:37:00 20 /min [facility] [place] [facility] Body height 2022-03-14 19:37:00 152.4 cm [facility] Body weight 2022-03-14 19:37:00 80.74 kg [facility] BMI 2022-03-14 19:37:00 34.76 kg/m2 Universi ty [facility] [place] [facility] Oxygen saturation in 2022-03-14 19:37:00 99 /min University of Arterial blood by [facility] Pulse oximetry Branch Systolic blood 2022-02-28 14:57:00 130 mm[Hg] Univer sity of pressure [place] [facility] Diastolic blood 2022-02-28 14:57:00 83 mm[Hg] Unive rsity of pressure [place] [facility] Heart rate 2022-02-28 14:57:00 117 /min Universi ty [facility] [place] [facility] Respiratory rate 2022-02-28 14:57:00 20 /min Univ ersity of [place] [facility] Body height 2022-02-28 14:57:00 152.4 cm Universi ty [facility] [place] [facility] Body weight 2022-02-28 14:57:00 80.377 kg [facility]i ty [facility] [place] [facility] BMI 2022-02-28 14:57:00 34.61 kg/m2 Universi ty [facility] [place] [facility] Oxygen saturation in 2022-02-28 14:57:00 99 /min University of Arterial blood by [facility] Pulse oximetry Branch Systolic blood 2022-02-19 17:58:00 140 mm[Hg] Univer sity of pressure [place] [facility] Diastolic blood 2022-02-19 17:58:00 95 mm[Hg] Unive rsity of pressure [place] [facility] Heart rate 2022-02-19 17:58:00 115 /min Universi ty [facility] [place] [facility] Body temperature 2022-02-19 13:46:00 36.78 Lizz Univ ersity of [place] [facility] Respiratory rate 2022-02-19 13:46:00 18 /min Univ ersity of [place] [facility] Oxygen saturation in 2022-02-19 13:46:00 94 /min University of Arterial blood by [facility] Pulse oximetry Branch Body weight 2022-02-18 10:44:00 83.462 kg Universi ty [facility] [place] [facility] BMI 2022-02-18 10:44:00 35.94 kg/m2 Universi ty [facility] [place] [facility] Systolic blood 2022-02-16 16:07:00 116 mm[Hg] Univer sity of pressure [place] [facility] Diastolic blood 2022-02-16 16:07:00 71 mm[Hg] Unive rsity of pressure [place] [facility] Heart rate 2022-02-16 16:07:00 85 /min [facility] Body temperature 2022-02-16 16:07:00 36.89 Lizz [facility] Respiratory rate 2022-02-16 16:07:00 17 /min [facility] Body weight 2022-02-16 16:07:00 84.823 kg [facility] BMI 2022-02-16 16:07:00 36.52 kg/m2 [facility] Oxygen saturation in 2022-02-16 16:07:00 96 /min [facility] Arterial blood by [facility] Pulse oximetry [place] Systolic blood 2021-10-05 15:13:00 152 mm[Hg] Univer sity [facility] Diastolic blood 2021-10-05 15:13:00 77 mm[Hg] Unive [facility] Body height 2021-10-05 15:12:00 152.4 cm [facility] Body weight 2021-10-05 15:12:00 88.315 kg [facility] BMI 2021-10-05 15:12:00 38.02 kg/m2 [facility] Procedures Procedure Date / Time Performing Clinician Source Performed AUTHORIZATION FOR RELEASE 2022-03-23 06:01:00 Doctor Unassigned, [facility] [place] [facility] FLU 2022-03-16 14:43:42 Kia [facility] VACC([id number]),65+YR,0.5 Medica l Branch ML,IM,ADJUVANTED,QUAD(FLU AD) POCT GLUCOSE (AUTOMATED) 2022-02-19 17:59:00 Brii Samson [facility] XR CHEST 2 VW 2022-02-19 16:23:57 Sriram Heath [facility] POCT GLUCOSE (AUTOMATED) 2022-02-19 13:45:00 Brii Samson [facility] MAGNESIUM 2022-02-19 12:23:00 Rocael Vaughan [facility] BASIC METABOLIC PANEL 2022-02-19 12:23:00 Rocael Vaughan [facility] (NA, K, CL, CO2, GLUCOSE, Medica l Branch BUN, CREATININE, CA) CBC WITH DIFF 2022-02-19 12:23:00 Rocael Vaughan [facility] N-TERMINAL PRO-BNP 2022-02-19 12:23:00 Rocael [facility] PO[facility] GLUCOSE (AUTOMATED) 2022-02-19 07:07:00 Brii Samson [facility] POCT GLUCOSE (AUTOMATED) 2022-02-19 06:10:00 OvMarcie youngi [facility] POCT GLUCOSE (AUTOMATED) 2022-02-19 03:34:00 OvBrii young [facility] POCT GLUCOSE (AUTOMATED) 2022-02-18 23:14:00 Brii Samson [facility] POCT GLUCOSE (AUTOMATED) 2022-02-18 17:29:00 Brii Samson [facility] POCT GLUCOSE (AUTOMATED) 2022-02-18 13:40:00 Marcie Samsoni [facility] BASIC METABOLIC PANEL 2022-02-18 10:53:00 Rocael Vaughan [facility] (NA, K, CL, CO2, GLUCOSE, Medica l Branch BUN, CREATININE, CA) LIPID PANEL ([id number])(TOTAL 2022-02-18 10:53:00 [facility] CHOLE[facility], Medical Branch TRIGLYCERIDES, HDL) CBC WITH DIFF 2022-02-18 10:53:00 Rocael Vaughan [facility] N-TERMINAL PRO-BNP 2022-02-18 10:53:00 Rocael Vaughan [facility] POCT GLUCOSE (AUTOMATED) 2022-02-18 02:34:00 Brii Samson [facility] POCT GLUCOSE (AUTOMATED) 2022-02-17 22:16:00 Marcie Samsoni [facility] POCT GLUCOSE (AUTOMATED) 2022-02-17 17:45:00 OvBrii young [facility] POCT GLUCOSE (AUTOMATED) 2022-02-17 14:01:00 [facility] (TTE) 2022-02-17 13:56:00 Chapin [facility] COMPLETE W/ CONTRAST Medical Bra nch MAGNESIUM 2022-02-17 09:47:[address] [facility] BASIC METABOLIC PANEL 2022-02-17 09:47:00 Chapin [facility] (NA, K, CL, CO2, GLUCOSE, Medica l Branch BUN, CREATININE, CA) N-TERMINAL PRO-BNP 2022-02-17 09:47:00 Chapin [facility] POCT GLUCOSE (AUTOMATED) 2022-02-17 03:55:00 Chapin [facility] POCT GLUCOSE (AUTOMATED) 2022-02-17 03:16:00 Chapin [facility] URINALYSIS 2022-02-16 18:07:00 Bird [facility] XR CHEST 1 VW 2022-02-16 17:06:49 Bird [facility] LIPASE 2022-02-16 16:59:00 Bird [facility] TROPONIN I 2022-02-16 16:59:00 Bird [facility] HEPATIC FUNCTION PANEL 2022-02-16 16:59:00 Bird [facility] ([id number]) (ALB,T.PRO,BILI [facility] Branch T,BU/BC,ALT,AST,ALK PHOS) BASIC METABOLIC PANEL 2022-02-16 16:59:00 Bird [facility] (NA, K, CL, CO2, GLUCOSE, Medica l Branch BUN, CREATININE, CA) CBC WITH DIFF 2022-02-16 16:59:00 Bird [facility] GLYCOSYLATED HEMOGLOBIN 2022-02-16 16:59:00 Chapin [facility] (A1C) [facility] N-TERMINAL PRO-BNP 2022-02-16 16:59:00 Marina Pang [facility] of [facility] COVID-19 (ID NOW RAPID 2022-02-16 16:59:00 Marina Pang [facility] TESTING) Medical Branch LAB ONLY COVID 2022-02-16 16:59:00 Marina Pang [place] [facility] [place] INTERPRETATION [facility] HB ECG ROUTINE & RHYTHM 2022-02-16 16:52:36 Marina Pang [facility] CONSENT/REFUSAL FOR 2022-02-16 16:40:37 Doctor Unassigned, [facility] DIAGNOSIS AND TREATMENT [place] [facility] POCT HEMOGLOBIN A1C TEST 2021-10-05 15:15:00 Amita Gomez [facility] Encounters Start End Encounter Admission Attending Care Care Encounter Source Date/Time Date/Time Type Type Clinicians Facility Department ID 2022-06-14 Outpatient [facility], STLMLC [facility] [id number] Common 12:46:01 Elaine [id number] [facility] 2022-06-02 Outpatient Lamb, [facility] [id number] Common 14:48:01 Elaine [id number] [facility] 2020-12-17 Emergency [facility] [id number] Univers 21:39:43 [facility] 2020-12-17 [facility] [id number] Univers 18:26:55 alvino BARAKAT [facility] 2020-12-17 Emergency [facility] [id number] Univers 16:06:19 [facility] 2022-06-15 2022-06-15 Outpatient Moustapha ADAM [facility] [id number] Univers 09:00:00 09:00:00 SILVERIO [facility] 2022-04-27 2022-04-27 Outpatient Moustapha HEATH [facility] [id number] Univers 10:20:00 10:20:00 SRIRAM grove [facility] 2022-03-27 2022-03-27 Refill Kumar [facility] 1.2.840.114 [id number] Univers 00:00:00 00:00:00 Qiachaim PALOMO 350.1.13.10 ity [facility] [place] [phone] Co dical NAL 059 [facility] 2022-03-23 2022-03-23 Orders Doctor YANA 1.2.840.114 [id number] Univers 00:00:00 00:00:00 Only Unassigned, THELMA 350.1.13.10 ity of [facility] 4.2.7.2.686 Bernabe as [id number] [address] 2022-03-22 2022-03-22 Rate Inserter 2, Adc Lab [facility] 1.2.840.114 [id number] Univers 08:00:00 08:15:00 Visit Silverio Adam 350.1.13.10 ity of [facility] 4.2.7.2.[place] [phone] Co dical NAL 353 [facility] 2022-03-22 2022-03-22 [facility] [id number] Univers 08:00:00 08:00:00 SILVERIO ity of [facility] 2022-03-16 2022-03-16 Outpatient R [facility] [id number] Univers 08:40:00 09:58:33 SILVERIO ity [facility] 2022-03-16 2022-03-16 Office [facility] 1.2.840.114 [id number] Univers 08:40:00 09:00:00 Visit Silverio PALOMO 350.1.13.10 i ty of [facility] 4.2.7.2.[place] [phone] Co dical NAL 059 [facility] 2022-03-14 2022-03-14 Office [facility] 1.2.840.114 [id number] Univers 13:40:00 14:00:00 Visit Sriram PALOMO 350.1.13.10 ity of [facility] 4.2.7.2.[place] [phone] Co dical NAL 059 [facility] 2022-03-142022-03-14 Outpatient R KUMAR, [facility] [id number] Univers 13:40:00 13:40:00 SRIRAM de oliveira o f [facility] 2022-03-09 2022-03-09 Outpatient R KIA, [facility] [id number] Univers 09:59:09 23:59:00 SILVERIO ity of [facility] 2022-02-28 2022-02-28 Outpatient R KUMAR, [facility] [id number] Univers 09:00:00 09:16:53 SRIRAM de oliveira o f [facility] 2022-02-28 2022-02-28 Office [facility] 1.2.840.114 [id number] Univers 09:00:00 09:16:53 Visit Sriram PALOM[place] 350.1.13.10 ity of [place].7.2.[place] [phone] [facility] [address] [facility] 2022-02-21 2022-02-21 Transition JONO Galvan 1.2.840.114 [id number] Univers 00:00:00 00:00:00 of Care Nara MG 350.1.13.10 it y of [place].2.7.2.[place] [phone] [facility] [address] 2022-02-16 2022-02-19 Inpatient X CHAPIN [facility] SAMI [id number] Univers 10:48:00 16:07:00 BRII ity of [facility] 2022-02-16 2022-02-19 [facility] Stephen PangeLeilani [facility] 1.2.840.11 [id number] Univers 10:48:00 16:07:00 Encounter Marcie Samsonkhadar [place]OM[place] 350.1.13.10 ity of [place].2.7.2.686 [place] CAMPUS [phone] [facility] [address] 2022-02-16 2022-02-16 Fang Govea [facility] 1.2.840.114 [id number] Univers 09:45:00 10:05:00 Care Unknown, Attending HEALTH 350.1.13.10 ity of [place] 4.2.7.2.686 Bernabe as HUMPHREY?BLEA [id number] [facility] [address] MEDICAL OFFICE BUILDING 2022-02-16 2022-02-16 Outpatient R CASSI [facility] [id number] Univers 09:45:00 09:45:00 FANG de oliveira [facility] 2022-01-31 2022-01-31 Outpatient R KUMAR, [facility] [id number] Univers 14:20:00 14:20:00 SRIRAM grove [facility] 2022-01-31 2022-01-31 Outpatient R KUMAR, [facility] [id number] Univers 14:20:00 14:20:00 SRIRAM de oliveira o maine [facility] 2021-12-02 2021-12-02 Outpatient R KIA [facility] [id number] Univers 10:20:00 10:20:00 [facility] 2021-11-25 2021-11-25 Outpatient R KIA [facility] [id number] Univers 10:20:00 10:20:00 [facility] 2021-11-25 2021-11-25 Outpatient R KIA [facility] [id number] Univers 10:20:00 10:20:00 [facility] 2021-10-05 2021-10-05 Outpatient R AMITA GOMEZ [facility] [id number] Univers 10:30:00 11:22:11 AMITA GOMEZ [facility] 2021-10-05 2021-10-05 Office Amita Gomez [facility] 1.2.840.114 [id number] Univers 10:30:00 11:22:11 Visit HEALTH 350.1.13.10 it y of [place] 4.2.7.2.686 Bernabe as HUMPHREY?BLEA [phone] [facility] [address] MEDICAL OFFICE BUILDING 2021-09-21 2021-09-21 Telephone [facility] 1.2.654.286 [id number] Univers 00:00:00 00:00:00 Wentong HEALTH 350.1.13.10 it y of [place] 4.2.7.2.686 Bernabe as HUMPHREY?BLEA [phone] Co dical KNEY [address] MEDICAL OFFICE BUILDING 2021-08-19 2021-08-19 Outpatient R SEWANI, [facility] [id number] Univers 11:20:00 11:20:00 SILVERIO [facility] 2021-08-16 2021-08-16 Outpatient R CASTLE, [facility] [id number] Univers 13:00:00 13:00:00 WENTONG [facility] 2021-08-01 2021-08-01 Office Kumar, [facility] 1.2.840.114 [id number] Univers 13:40:00 14:02:37 Visit Sriram PALOM[place] 350.1.13.10 ity jarek [place].2.[place] [phone] [address] 2021-08-01 2021-08-01 Outpatient R KUMAR, [facility] [id number] Univers 13:40:00 14:02:37 QIACHAIM ity o [facility] 2021-08-01 2021-08-01 Outpatient R KUMAR, [facility] [id number] Univers 13:40:00 13:40:00 QIANGJUN ity o [facility] 2021-08-01 2021-08-01 Outpatient R KUMAR, [facility] [id number] Univers 13:40:00 13:40:00 QIANGJUN ity o [facility] 2021-08-01 2021-08-01 Outpatient R KUMAR, [facility] [id number] Univers 13:40:00 13:40:00 QIANGJUN ity o [facility] 2021-08-01 2021-08-01 Outpatient R KUMAR, [facility] [id number] Univers 13:40:00 13:40:00 QIANGJUN ity o [facility] 2021-07-22 2021-07-22 Refill Kumar, [facility] 1.2.840.114 [id number] Univers 00:00:00 00:00:00 Sriram PALOMO 350.1.13.10 ity jarek [place].2.[place] [phone] Co dic[address] 2021-06-24 2021-06-24 Outpatient R KIA [facility] [id number] Univers 10:00:00 10:46:29 SIL[facility]IOMichael [facility]. [facility] 2021-06-24 2021-06-24 Office [facility] 1.2.840.114 [id number] Univers 10:00:00 10:20:00 Visit Silverio PALOMO 350.1.13.10 i ty of [place] 4.2.7.2.686 Bernabelauryn CALIXTOMANUELA [phone] [address] 2021-06-24 2021-06-24 Outpatient R KIA [facility] [id number] Univers 10:00:00 10:00:00 [facility] 2021-06-24 2021-06-24 [facility] [id number] Univers 10:00:00 10:00:00 [facility] 2021-06-10 2021-06-10 Outpatient R KIA [facility] [id number] Univers 10:46:49 23:59:00 [facility] 2021-05-23 2021-05-23 Outpatient R KUMAR, [facility] [id number] Univers 15:00:00 15:00:00 SRIRAM diamond [facility] 2021-05-04 2021-05-04 Outpatient R KUMAR, [facility] [id number] Univers 08:00:00 23:59:00 SRIRAM de oliveira o [facility] 2021-05-04 2021-05-04 Outpatient R KUMAR, [facility] [id number] Univers 08:00:00 08:00:00 SRIRAM de oliveira o [facility] 2021-04-28 2021-04-28 Outpatient R BROOKS [facility] [id number] Univers 13:00:00 14:03:10 DIANN [facility] 2021-04-28 2021-04-28 Office [facility] .2.829.629 [id number] Univers 13:00:00 14:03:10 Visit Diann DEWEY 350.1.13.[address] [facility] 4.2.7.2.686 [place] [facility] [phone] Co dical NAL [address] [facility] 2021-04-22 2021-04-22 Outpatient Moustapha TRIMBLEShweta MITCHELL [facility] [id number] Univers 15:40:00 15:40:00 MITCHELL GARCIA kelsie [facility] 2021-04-22 2021-04-22 Outpatient Moustapha JOSEMITCHELL Rock [facility] [id number] Univers 15:40:00 15:40:00 MITCHELL GARCIA kelsie [facility] 2021-04-22 2021-04-22 Outpatient Moustapha JOSEMITCHELL Rock [facility] [id number] Univers 15:40:00 15:40:00 MITCHELL GARCIA [facility] 2021-04-18 2021-04-19 Emergency X [facility] ERT [id number] Univers 22:42:00 02:27:00 BERNIEUSHO ity [facility] 2021-04-18 2021-04-19 Emergency [facility] 1.2.840.114 [id number] Univers 22:42:00 02:27:00 Celia PALOMO 350.1.13.[address] [facility] 4.2.7.2.686 [place] [phone] [facility] [address] 2021-04-18 2021-04-19 [facility] [id number] Univers 22:42:00 02:27:00 FOLUSHO ity [facility] 2021-04-18 2021-04-18 Orders Doctor MILLAN 1.2.840.114 [id number] Univers 00:00:00 00:00:00 Only Unassigned, THELMA 350.1.13.10 ity of [place] [facility] 4.2.7.2.686 Bernabe as [phone] [facility] [address] 2021-04-15 2021-04-15 [facility] 1.2.889.175 [id number] Univers 12:42:22 23:59:00 Encounter Clare PALOMO 350.1.13.10 ity of [place] 4.2.7.2.686 [place] [phone] [facility] [address] 2021-04-15 2021-04-15 Outpatient R KUMAR [facility] [id number] Univers 10:00:00 10:33:44 SRIRAM ity o f [facility] 2021-04-15 2021-04-15 Office Kumar, [facility] 1.2.840.114 [id number] Univers 10:00:00 10:33:44 Visit Sriram [place] 350.1.13.[address] [facility] 4.2.7.2.[place] [facility] [id number] Co dical NAL [address] BUILDING 2021-04-15 2021-04-15 Outpatient R KUMAR [facility] [id number] Univers 10:00:00 10:33:44 SRIRAM de oliveira o [facility] 2021-04-15 2021-04-15 Outpatient R MAJOR [facility] [id number] Univers 00:00:00 00:00:00 WONDIFUL martyy o f [facility] 2021-04-15 2021-04-15 Orders Doctor MILLAN 1.2.840.114 [id number] Univers 00:00:00 00:00:00 Only Unassigned, THELMA 350.1.13.10 [facility] 4.2.7.2.686 Bernabe as [phone] [facility] [address] 2021-04-13 2021-04-13 Outpatient R TIN [facility] [id number] Univers 10:00:00 11:12:56 [facility] 2021-04-13 2021-04-13 Office Tin, [facility] 1.2.840.114 [id number] Univers 10:00:00 11:12:56 Visit [facility] 350.1.13.10 it y of [place] 4.2.7.2.686 Bernabe as HUMPHREY?BLEA [phone] Co dical KNEY [address] MEDICAL OFFICE BUILDING 2021-04-13 2021-04-13 Outpatient R TIN [facility] [id number] Univers 10:00:00 11:12:56 WENTONG ity [facility] 2021-04-13 2021-04-13 Outpatient R CASTLE [facility] [id number] Univers 10:00:00 10:00:00 WENTONG ity of [facility] 2021-04-13 2021-04-13 Outpatient R TIN [facility] [id number] Univers 10:00:00 10:00:00 WENTONG ity of [facility] 2021-04-13 2021-04-13 Outpatient R CASTLE [facility] [id number] Univers 10:00:00 10:00:00 WENTONG ity [facility] 2021-04-12 2021-04-12 Nurse YANA Sanders 1.2.837.754 [id number] Univers 00:00:00 00:00:00 Triage Luis Alberto THELMA 350.1.13.10 it y of [facility] 4.2.7.2.686 Bernabe as [phone] [address] 2021-04-07 2021-04-07 Telephone [facility] 1.2.067.654 [id number] Univers 00:00:00 00:00:00 Sriram [place] 350.1.13.10 ity of [place] 4.2.7.2.[place] [phone] Co dical NAL [address] [place] [address] 2021-04-01 2021-04-01 Outpatient R KIA [facility] [id number] Univers 10:00:00 10:40:52 SILVERIO ity [facility] 2021-04-01 2021-04-01 Office [facility] 1.2.840.114 [id number] Univers 10:00:00 10:40:52 Visit Silverio [place] 350.1.13.10 i ty of [place] 4.2.7.2.686 [place] [id number] Co dical NAL [address] [place] [address] 2021-03-30 2021-03-30 Telephone [facility] 1.2.840.114 [id number] Univers 00:00:00 00:00:00 [facility] 350.1.13.10 ity of [place] 4.2.7.2.686 Bernabe as HUMPHREY?BLEA [phone] Me dical [address] OFFICE [facility] 2021-03-30 2021-03-30 Telephone Jose [facility] 1.2.840.114 [id number] Univers 00:00:00 00:00:00 Mitchell [facility] 350.1.13.10 ity [facility] 4.2.7.2.686 Bernabe as HUMPHREY?ARLETTE [phone] [address] OFFICE [facility] 2021-03-29 2021-03-29 Outpatient MITCHELL TORRES [facility] [id number] Univers 08:00:00 09:38:08 JOSE MITCHELL kelsie [facility] 2021-03-29 2021-03-29 Outpatient MITCHELL TORRES [facility] [id number] Univers 08:00:00 09:38:08 MITCHELL GARCIA kelsie [facility] 2021-03-29 2021-03-29 Outpatient MITCHELL TORRES [facility] [id number] Univers 08:00:00 08:00:00 MITCHELL GARCIA [facility] 2021-03-29 2021-03-29 Orders Doctor MILLAN 1.2.840.114 [id number] Univers 00:00:00 00:00:00 Only Unassigned, THELMA 350.1.13.10 ity of [facility] 4.2.7.2.686 Bernabe as [phone] [address] 2021-03-23 2021-03-23 Outpatient Moustapha HEATH [facility] [id number] Univers 15:40:00 16:06:08 SRIRAM de oliveira o f [facility] 2021-03-23 2021-03-23 Office [facility] 1.2.840.114 [id number] Univers 15:40:00 16:06:08 Visit Sriram PALOMO 350.1.13.[address] [facility] 4.2.7.2.686 [place] ANIL [phone] Co jamilahelinor [facility] 059 [facility] 2021-03-23 2021-03-23 Outpatient Moustapha HEATH [facility] [id number] Univers 16:00:00 16:00:00 SRIRAM de oliveira o f [facility] 2021-03-22 2021-03-22 Telephone [facility] 1.2.840.114 [id number] Univers 00:00:00 00:00:00 Diann DEWEY 350.1.13.10 i ty of [place] 4.2.7.2.686 [place] [phone] Co dical NAL 188 [facility] 2021-03-21 2021-03-21 Rate Inserter [place], Adc Lab Main [facility] 1.2.8 40.114 [id number] Univers 14:45:00 15:00:00 [facility] 350.1 .13.10 ity of [place] 4.2.7.2.686 [place] [phone] [facility] 353 [facility] 2021-03-21 2021-03-21 Outpatient R [facility] [id number] Univers 14:45:00 14:45:00 [facility] 2021-03-21 2021-03-21 Outpatient R [facility] [id number] Univers 14:45:00 14:45:00 [facility] 2021-03-21 2021-03-21 Orders Doctor YANA 1.2.840.114 [id number] Univers 00:00:00 00:00:00 Only Unassigned, THELMA 350.1.13.10 ity of [place] [facility] 4.2.7.2.686 Bernabe as [phone] [facility] [address] 2021-03-21 2021-03-21 Telephone HiramclemenciarussellGLENNA 1.2.840.114 [id number] Univers 00:00:00 00:00:00 [facility] 350.1.13.10 i ty of [facility] 4.2.7.2.686 [place] [phone] [facility] [address] 2021-03-20 2021-03-20 Nurse YANA Bautista 1.2.840.114 [id number] Univers 00:00:00 00:00:00 Triage Cielo THELMA 350.1.13.10 it y of HOSPITAL 4.2.7.2.686 Bernabe as [id number] [facility] [address] 2021-03-18 2021-03-18 Emergency [facility] 1.2.840.114 [id number] Univers 17:02:00 22:45:00 Ananya PALOMO 350.1.13.10 ity of [place] 4.2.7.2.686 [place] [id number] [facility] [address] 2021-03-18 2021-03-18 Emergency X [facility] ERT [id number] Univers 17:02:00 17:02:00 ANANYA itkelsie [facility] 2021-03-18 2021-03-18 Emergency X [facility] ERT [id number] Univers 16:34:00 16:34:00 itkelsie [facility] 2021-03-18 2021-03-18 Outpatient R EPI [facility] [id number] Univers 15:00:00 16:15:48 JENNIE martykelsie [facility] 2021-03-18 2021-03-18 Office [facility] 1.2.840.114 [id number] Univers 15:00:00 16:15:48 Visit [facility] 350.1.13.10 it y of [place] 4.2.7.2.686 Bernabe as HUMPHREY?BLEA [id number] [address] MEDICAL OFFICE BUILDING 2021-03-18 2021-03-18 Outpatient R [facility] ERT [id number] Univers 15:00:00 16:15:48 JENNIE alvino [facility] 2021-03-18 2021-03-18 Outpatient R EPI [facility] [id number] Univers 15:00:00 16:15:48 [facility] 2021-03-18 2021-03-18 Transition JONO Galvan 1.2.840.114 [id number] Univers 00:00:00 00:00:00 of Care Nara MG 350.1.13.10 it y [facility] 4.2.7.2.[place] [id number] [facility] [address] 2021-03-12 2021-03-17 Inpatient X [facility] [id number] Univers 12:11:00 15:43:00 [facility] 2021-03-12 2021-03-17 Hospital AaronDamien nieto 1.2.840 .114 [id number] Univers 12:11:00 15:43:00 Encounter Soni Hunter wyhina THELMA 350.1.13.10 ity of [facility] 4.2.7.2.686 [place] [id number] [facility] [address] 2021-03-12 2021-03-17 Inpatient X [facility] [id number] Univers 12:11:00 15:43:00 [facility] ity [facility] 2021-03-17 2021-03-17 Nurse Esperanza Cronin 1.2.840.114 [id number] Univers 00:00:00 00:00:00 Triage THELMA 350.1.13.10 it y of [facility] 4.2.7.2.686 Bernabe as [id number] [facility] [address] 2021-03-16 2021-03-16 Case Willian, [facility] 1.2.840.114 [id number] Univers 00:00:00 00:00:00 Management Wissam Y HEALTH 350.1.13.10 ity of [place] [facility] 4.2.7.2.[place] [id number] [facility] [address] 2021-03-16 2021-03-16 Case Willian, [facility] 1.2.840.114 [id number] Univers 00:00:00 00:00:00 Management Wissam Y HEALTH 350.1.13.10 ity of [place] [facility] 4.2.7.2.[place] [id number] [facility] [address] 2021-03-11 2021-03-11 Transition JONO Galvan 1.2.840.114 [id number] Univers 00:00:00 00:00:00 of Care Nara CASEYY 350.1.13.10 it y of [place] 4.2.7.2.686 [place] [id number] [facility] [address] 2021-03-11 2021-03-11 Telephone [facility] 1.2.480.453 [id number] Univers 00:00:00 00:00:00 Sriram PALOMO [address] [facility] 4.2.7.2.[place] [id number] Co dical NAL 059 [facility] 2021-03-07 2021-03-10 Outpatient X ANUJ GONZALES [facility] SAMI [id number] Univers 08:28:00 14:20:00 ity of [facility] 2021-03-07 2021-03-10 Emergency Hudson Wolfe 1.2.840. 114 [id number] Univers 08:28:00 14:20:00 Anuj Gonzales Leslie RENEE 350.1.13.[address] [facility] 4.2.7.2.686 Bernabe as [id number] [facility] [address] 2021-03-07 2021-03-10 Outpatient X ANUJ GONZALES [facility] SAMI [id number] Univers 08:28:00 14:20:00 ity of [facility] 2021-03-09 2021-03-09 Surgery Misael Castro [facility] 1.2.840.114 [id number] Univers 09:36:00 10:16:00 David ABBASI 350.1.13.10 it y of [place] 4.2.7.2.686 Bernabe as BLDG [id number] [facility] [address] 2021-03-03 2021-03-03 [facility] [id number] Univers 14:00:00 14:44:31 SHANTEL ity [facility] 2021-03-03 2021-03-03 Office [facility] 1.2.840.114 [id number] Univers 14:00:00 14:44:31 Visit Shantel PALOMO 350.1.13.[address] [facility] 4.2.7.2.[place] [id number] Co dical NAL 188 [facility] 2021-03-03 2021-03-03 Outpatient R BROOKS [facility] [id number] Univers 14:00:00 14:00:00 DIANN ity [facility] 2021-02-08 2021-02-08 Office Sabina Barba [facility] 1.2.840.114 [id number] Univers 15:30:00 16:44:10 Visit KHLOE [id number] it y [id number] [id number] [address] 2021-02-08 2021-02-08 Outpatient R SABINA BARBA [facility] [id number] Univers 15:30:00 16:44:10 ity [facility] 2021-02-08 2021-02-08 Outpatient R SABINA BARBA [facility] [id number] Univers 15:30:00 16:44:10 ity [facility] 2021-02-08 2021-02-08 Outpatient R SABINA BARBA [facility] [id number] Univers 15:30:00 15:30:00 ity [facility] 2021-02-08 2021-02-08 Outpatient R SABINA BARBA [facility] [id number] Univers 15:30:00 [facility]30[facility] 2021-02-03 [facility] [id number] Univers 00:00:00 00:00:00 Management Wondiful A HEALTH [id number] ity of [place] [id number] Bernabe as HUMPHREY?BLEA [phone] [facility] [address] [facility] 2021-02-01 2021-02-01 Office [facility] [id number] Univers 15:30:00 16:58:42 Visit Ericka HEALTH [id number] it y of [place] 4.2.7.2.686 Bernabe as HUMPHREY?BLEA [phone] [facility] [address] MEDICAL OFFICE BUILDING 2021-02-01 2021-02-01 Outpatient [facility] [id number] Univers 15:30:00 16:58:42 ERICKA ity [facility] 2021-02-012021-02-01 Outpatient R MEKA [facility] [id number] Univers 16:30:00 16:30:00 ERICKA kelsie [facility] 2021-02-01 2021-02-01 Rate Inserter Lab, Royal Hardin [facility] 1.2.840.1 14 [id number] Univers 16:02:42 16:17:42 [facility] 350.1.13.10 ity [place] [facility] [place] [facility] 4.2.7.2.686 Bernabe as HUMPHREY?BLEA [phone] [address] OFFICE [facility] 2021-02-01 2021-02-01 Outpatient R MEKA [facility] [id number] Univers 15:30:00 15:30:00 ERICKA [facility] 2021-01-31 2021-01-31 Outpatient [facility] [id number] Univers 13:40:00 13:44:29 [facility] 2021-[facility] 2021-01-31 Outpatient [facility] [id number] Univers 13:40:00 13:44:29 SRIRAM [facility] 2021-01-31 2021-01-31 Office [facility] 1.2.840.114 [id number] Univers 13:18:52 13:44:29 [facility] 350.1.13.10 ity of [place].2.7.2.686 [place] [phone] [facility] 059 [facility] 2021-01-31 2021-01-31 Outpatient [facility] [id number] Univers 13:40:00 13:40:00 SRIRAM y o [facility] 2021-01-31 2021-01-31 Rate Inserter Lab, Royal - Wilfred [facility] 1.2.840.1 14 [id number] Univers 10:03:00 10:18:00 [facility] 350.1.13.10 ity [place] [facility] [place] [facility] 4.2.7.2.686 Bernabe as HUMPHREY?BLEA [phone] [address] MEDICAL OFFICE [facility] 2021-01-31 2021-01-31 Office [facility] 1.2.840.114 [id number] Univers 09:22:40 10:03:18 Visit Wondiful A HEALTH 350.1.13.10 ity of [place] 4.2.7.2.686 Bernabe as HUMPHREY?BLEA [phone] Co sherif [place] [address] MEDICAL OFFICE [facility] 2021-01-31 2021-01-31 Outpatient [facility] [id number] Univers 09:30:00 09:30:00 WONDIFUL ity o f [facility] 2021-01-11 2021-01-11 Case [facility] 1.2.840.114 [id number] Univers 00:00:00 00:00:00 Management Wondiful [facility] 350.1.13.10 ity of [place] 4.2.7.2.686 Bernabe as HUMPHREY?BLEA [phone] Co sherif [place] [address] MEDICAL OFFICE [facility] 2021-01-07 2021-01-07 Outpatient [facility] [id number] Univers 16:30:00 23:59:00 WONDIFUL ity o f [facility] 2021-01-07 2021-01-07 Hospital [facility] 1.2.528.798 [id number] Univers 16:30:00 23:59:00 Encounter Wondiful [facility] 350.1.13.10 ity of [place] 4.2.7.2.686 Bernabe as HUMPHREY?BLEA [phone] Co sherif [place] [address] MEDICAL OFFICE [facility] 2021-01-07 2021-01-07 Rate Inserter Lab, Ang - Db [facility] 1.2.840.1 14 [id number] Univers 16:36:52 16:51:52 Visit Clare Gonsalves [facility] 350.1.13.1 0 ity of [place] 4.2.7.2.686 Bernabe as HUMPHREY?BLEA [phone] Co sherif [place] [address] MEDICAL OFFICE BUILDING 2021-01-07 2021-01-07 Outpatient [facility] [id number] Univers 16:15:00 16:37:00 WONDIFUL ity o f [facility] 2021-01-07 2021-01-07 Office [facility] 1.2.840.114 [id number] Univers 15:34:25 16:37:00 Visit Wondiful [facility] 350.1.13.10 ity of [place] 4.2.7.2.686 Bernabe as HUMPHREY?BLEA [phone] [address] MEDICAL OFFICE [facility] 2021-01-05 2021-01-05 Telephone [facility] 1.2.840.114 [id number] Univers 00:00:00 00:00:00 Wondiful A HE[facility] 350.1.13.10 ity of [place] 4.2.7.2.686 Bernabe as HUMPHREY?BLEA [phone] [address] OFFICE [facility] 2020-12-28 2020-12-28 Outpatient R KIA [facility] [id number] Univers 14:00:00 14:00:00 SILVERIO ity of [facility] 2020-12-27 2020-12-27 Outpatient R MAJOR [facility] [id number] Univers 13:14:51 23:59:00 WONDIFUL ity o f [facility] 2020-12-27 2020-12-27 [facility] 1.2.952.281 [id number] Univers 13:00:00 23:59:00 Encounter Wondiful A [place] 350.1.13.10 ity of [place] 4.2.7.2.686 [place] [facility] [phone] [address] 2020-12-27 2020-12-27 Outpatient R [facility] [id number] Univers 00:00:00 00:00:00 WONDIFUL ity o f [facility] 2020-12-13 2020-12-13 Telephone [facility] 1.2.840.114 [id number] Univers 00:00:00 00:00:00 Wondiful A Health 350.1.13.10 ity of [place] 4.2.7.2.686 Bernabe as Humphrey?Blea [phone] [address] Medical Office [facility] 2020-12-132020-12-13 Telephone Major DARYL 1.2.840.114 [id number] Univers 00:00:00 00:00:00 Wondiful A Health 350.1.13.10 ity of [place] 4.2.7.2.686 Bernabe as Humphrey?Blea [phone] [address] Office [facility] 2020-12-06 2020-12-06 Telephone Major DARYL 1.2.840.114 [id number] Univers 00:00:00 00:00:00 Wondiful A Health 350.1.13.10 ity of [place] 4.2.7.2.686 Bernabe as Humphrey?Blea [phone] [address] 2020-12-03 2020-12-03 Rate Inserter Lab, Ang - Db [facility] 1.2.840.1 14 [id number] Univers 16:48:38 17:03:11 Visit Clare Gonsalves Health 350.1.13.1 0 ity of [place] 4.2.7.2.686 Bernabe as Humphrey?Blea [phone] [address] Office [facility] 2020-12-03 2020-12-03 Rate Inserter Lab, Ang - Db [facility] 1.2.840.1 14 [id number] Univers 16:48:38 17:03:11 Visit Clare Gonsalves Health 350.1.13.1 0 ity of [place] 4.2.7.2.686 Bernabe as Humphrey?Blea [phone] [address] Office [facility] 2020-12-03 2020-12-03 Rate Inserter Lab, Ang - Db [facility] 1.2.840.1 14 [id number] Univers 16:48:38 17:03:11 Visit Clare Gonsalves HEALTH 350.1.13.1 0 ity of [place] 4.2.7.2.686 Bernabe as HUMPHREY?BLEA [phone] [address] OFFICE [facility] 2020-12-03 2020-12-03 Office JAYNE GonsalvesMB 1.2.840.114 [id number] Univers 15:32:14 16:49:03 Visit Wondiful A Health 350.1.13.10 ity of [place] 4.2.7.2.686 Bernabe as Humphrey?Blea [phone] Co sherif kney [address] [facility] Office [facility] 2020-12-03 2020-12-03 Outpatient R MAJOR [facility] [id number] Univers 15:45:00 15:45:00 WONDIFUL ity o f [facility] 2020-11-23 2020-11-23 Office [facility] 1.2.840.114 [id number] Univers 09:49:05 10:43:01 Visit Silverio [place] 350.1.13.10 i ty of [place].2.7.2.686 [place] [phone] [address] 2020-11-23 2020-11-23 Outpatient R KIA [facility] [id number] Univers 10:00:00 10:00:00 SILVERIO ity of [facility] 2020-11-15 2020-11-15 Refisra HeathL[facility] 1.2.840.114 [id number] Univers 00:00:00 00:00:00 Qiangjun [place] 350.1.13.10 ity of [place].2.7.2.686 [place] [phone] [address] 2020-11-15 2020-11-15 Refisra [facility]vesL[facility] 1.2.840.114 [id number] Univers 00:00:00 00:00:00 Wondiful A [place] 350.1.13.10 ity of [place] 4.2.7.2.686 [place] [phone] [address] 2020-11-11 2020-11-11 Cali [facility] 1.2.840.114 [id number] Univers 00:00:00 00:00:00 Wondiful A Health 350.1.13.10 ity of [place] 4.2.7.2.686 Bernabe as Professio [phone] [address] One 2020-10-05 2020-10-05 Refisra [facility] 1.2.840.114 [id number] Univers 00:00:00 00:00:00 Wondiful A Health 350.1.13.10 ity of [place] 4.2.7.2.686 Bernabe as Professio [phone] [address] 2020-10-04 2020-10-04 Orders Doctor YANA 1.2.840.114 [id number] Univers 00:00:00 00:00:00 Only Unassigned, THELMA 350.1.13.10 ity of [place] [facility] 4.2.7.2.686 Bernabe as [phone] [address] 2020-09-24 2020-09-24 Refisra [facility]vesL[facility] 1.2.840.114 [id number] Univers 00:00:00 00:00:00 Wondiful A Health 350.1.13.10 ity of [place] 4.2.7.2.686 Bernabe as Professio [phone] [facility] 044 [facility] 2020-09-09 2020-09-09 Cali Heath [facility] 1.2.840.114 [id number] Univers 00:00:00 00:00:00 Qiangjun [place] 350.1.13.10 ity of [place] 4.2.7.2.686 [place] [phone] [facility] 059 [facility] 2020-09-03 2020-09-03 Refisra [facility] 1.2.840.114 [id number] Univers 00:00:00 00:00:00 Wondiful A Health 350.1.13.10 ity of [place] 4.2.7.2.686 Bernabe as Professio [phone] [address] 2020-07-27 2020-07-27 Outpatient R KIA NJJENNI [facility] [id number] Univers 10:20:00 10:20:00 SILVERIO ity of [facility] 2020-07-27 2020-07-27 Office Kia NJJENNI 1.2.840.114 [id number] Univers 09:56:55 10:16:55 [facility] 350.1.13.10 i [place] 4.2.7.2.686 [place] [phone] [facility] 059 [facility] 2020-07-13 2020-07-13 Orders Doctor YANA 1.2.840.114 [id number] Univers 00:00:00 00:00:00 Only Unassigned, THELMA 350.1.13.10 [facility] 4.2.7.2.686 Bernabe as [phone] [address] 2020-07-08 2020-07-08 Refisra Gonsalves [facility] 1.2.840.114 [id number] Univers 00:00:00 00:00:00 Wondiful A Health 350.1.13.10 ity of [place] 4.2.7.2.686 Bernabe as Professio [phone] [facility] [address] One 2020-06-29 2020-06-29 Outpatient R [facility] [id number] Univers 10:30:00 10:30:00 ity [facility] 2020-06-29 2020-06-29 Outpatient [facility] [id number] Univers 10:30:00 10:30:00 SILVERIO ity [facility] 2020-06-07 2020-06-07 Office [facility] 1.2.840.114 [id number] Univers 13:02:14 13:29:23 Visit Sriram [place] 350.1.13.10 ity of [place] 4.2.7.2.686 [place] [phone] [facility] 059 [facility] 2020-06-07 2020-06-07 Outpatient R [facility] [id number] Univers 13:00:00 13:00:00 SRIRAM de oliveira o [facility] 2020-06-02 2020-06-02 Outpatient R DEE [facility] [id number] Univers 19:20:00 19:20:00 VIRI de oliveira o [facility] 2020-06-02 2020-06-02 Laboratory Lab, Adc Fam Pob I [facility] 1.2. 840.114 [id number] Univers 18:38:28 18:58:28 Only Jose [facility] 350.1.13.10 ity of [place] 4.2.7.2.686 [place] Professio [phone] [address] Office [facility] One 2020-06-02 2020-06-02 Letter Doctor YANA 1.2.840.114 [id number] Univers 00:00:00 00:00:00 (Out) Unassigned, THELMA 350.1.13.10 ity of [place] [facility] 4.2.7.2.686 Bernabe as [phone] [address] 2020-06-02 2020-06-02 Letter Doctor YANA 1.2.840.114 [id number] Univers 00:00:00 00:00:00 (Out) Unassigned, THELMA 350.1.13.10 ity of [place] [facility] 4.2.7.2.686 Bernabe as [phone] [address] 2020-06-02 2020-06-02 Letter Doctor YANA 1.2.840.114 [id number] Univers 00:00:00 00:00:00 (Out) Unassigned, THELMA 350.1.13.10 ity of [place] [facility] 4.2.7.2.686 Bernabe as [phone] [address] 2020-06-02 2020-06-02 Letter Doctor YANA 1.2.840.114 [id number] Univers 00:00:00 00:00:00 (Out) Unassigned, THELMA 350.1.13.10 ity of [place] [facility] 4.2.7.2.686 Bernabe as [phone] [facility] [address] 2020-05-20 2020-05-20 Telephone YANA Samano 1.2.376.055 [id number] Univers 00:00:00 00:00:00 Teri RENEE 350.1.13.10 ity of HOSPITAL 4.2.7.2.686 Bernabe as [phone] [facility] [address] 2020-05-20 2020-05-20 Telephone YANA Samano 1.2.661.514 [id number] 00:00:00 00:00:00 Teri RENEE 350.1.13.10 [facility] 42.7.2.686 [id number] 082 2020-04-28 2020-04-28 Refill [facility] 1.2.840.114 [id number] Univers 00:00:00 00:00:00 Silverio [place] 350.1.13.10 i ty [place] 4.2.7.2.686 [place] [phone] Co dicvt nal [address] [place] [address] 2020-04-27 2020-04-27 Office [facility] 1.2.840.114 [id number] Univers 11:25:29 11:45:29 Visit Silverio [place] 350.1.13.10 i ty of [place] [address].2.7.2.686 [place] [phone] [address] 2020-04-27 2020-04-27 Outpatient [facility] [id number] Univers 11:40:00 11:40:00 SILVERIO ity [facility] 2020-04-26 2020-04-26 Outpatient [facility] [id number] Univers 10:20:00 10:20:00 ERICH ity [facility] 2020-04-14 2020-04-14 [facility] 1.2.774.758 [id number] Univers 09:18:24 23:59:00 Encounter Wondiful Lauryn Palomo 350.1.13.10 ity [facility] 4.2.7.2.686 [place] [phone] [address] 2020-04-14 2020-04-14 Outpatient [facility] [id number] Univers 00:00:00 00:00:00 WONDIFUL ity o f [facility] 2020-03-31 2020-03-31 Rate Inserter [place], Adc Lab Main [facility] 1.2.8 40.114 [id number] Univers 09:18:24 09:33:24 Visit Major, Wondiful A [place] 350.1.13. 10 ity of [place] 4.2.7.2.686 [place] [phone] Co dical nal 353 [facility] 2020-03-31 2020-03-31 Outpatient [facility] [id number] Univers 09:15:00 09:15:00 WONDIFUL ity o f [facility] 2020-03-30 2020-03-30 Laboratory Pacemaker/Icd, [facility] 1.2. 840.114 [id number] Univers 12:51:02 13:15:05 Only Sewdom, Silverio Dewey 350.1.13.10 ity of [place] 4.2.7.2.686 [place] [phone] [facility] 059 [facility] 2020-03-30 2020-03-30 Outpatient R [facility] [id number] Univers 13:00:00 13:00:00 ity of [facility] 2020-03-29 2020-03-29 Office [facility] 1.2.840.114 [id number] Univers 15:15:24 16:12:41 Visit [facility] Lauryn [facility] 350.1.13.10 ity of [place] 4.2.7.2.686 Bernabe as Professio [phone] [facility] [address] One 2020-03-29 2020-03-29 Outpatient [facility] [id number] Univers 15:30:00 15:30:00 WONDIFUL ity o f [facility] 2020-03-03 2020-03-03 Orders Doctor YANA 1.2.840.114 [id number] Univers 00:00:00 00:00:00 Only Unassigned, THELMA 350.1.13.10 ity of [place] [facility] 4.2.7.2.686 Bernabe as [phone] [address] 2020-02-03 2020-02-03 Outpatient R [facility] [id number] Univers 14:20:00 14:20:00 SRIRAM ity o f [facility] 2020-02-03 2020-02-03 Office [facility] 1.2.840.114 [id number] Univers 13:38:09 14:13:45 Visit Guillechaim Palomo 350.1.13.10 ity of [place] 4.2.7.2.686 [place] [phone] Co dicvt nal [address] [place] [address] 2020-01-27 2020-01-27 Office [facility] 1.2.840.114 [id number] Univers 10:58:57 11:32:49 Visit Silverio Dewey 350.1.13.10 i ty of [place] 4.2.7.2.686 [place] [phone] [address] 2020-01-27 2020-01-27 Outpatient R [facility] [id number] Univers 11:00:00 11:00:00 SILVERIO ity of [facility] 2020-01-20 2020-01-20 Orders Doctor YANA 1.2.840.114 [id number] Univers 00:00:00 00:00:00 Only Unassigned, THELMA 350.1.13.10 ity of [place] [facility] 4.2.7.2.686 Bernabe as [phone] [address] 2020-01-20 2020-01-20 Telephone [facility] 1.2.015.217 [id number] Univers 00:00:00 00:00:00 Sriram Palomo 350.1.13.10 ity of [place] 4.2.7.2.686 [place] [phone] Co dic[address] 2020-01-20 2020-01-20 Refill [facility] 1.2.840.114 [id number] Univers 00:00:00 00:00:00 Qiachaim Palomo 350.1.13.10 ity of [place] 4.2.7.2.686 [place] [phone] Co dicvt nal [address] [place] [address] 2020-01-14 2020-01-14 Orders Doctor YANA 1.2.840.114 [id number] Univers 00:00:00 00:00:00 Only Unassigned, THELMA 350.1.13.10 ity of [place] [facility] 4.2.7.2.686 Bernabe as [phone] [address] 2020-01-12 2020-01-12 Outpatient R KUMAR, [facility] [id number] Univers 10:00:00 10:00:00 DIMITRIZECHARIAH itkelsie o f [facility] 2020-01-05 2020-01-05 Rate Inserter 2, Adc Lab [facility] 1.2.840.114 [id number] Univers 15:31:18 15:46:18 Visit Omole, Min Palomo 350.1.1 3.10 ity of [place] 4.2.7.2.686 [place] [phone] Co dical nal 353 [facility] 2020-01-05 2020-01-05 Office krystle, [facility] 1.2.840.114 [id number] Univers 14:39:45 15:28:14 Visit Min Palomo 350.1.13.10 i ty of [place] 4.2.7.2.686 [place] [phone] Co dicvt nal 059 [facility] 2020-01-05 2020-01-05 Outpatient R FREDDY, [facility] [id number] Univers 14:45:00 14:45:00 MIN ity of [facility] 2020-01-05 2020-01-05 Orders Doctor MILLAN 1.2.840.114 [id number] Univers 00:00:00 00:00:00 Only Unassigned, THELMA 350.1.13.10 ity of [place] [facility] 4.2.7.2.686 Bernabe as [phone] [address] 2020-01-01 2020-01-01 Telephone Kumar, [facility] 1.2.031.713 [id number] Univers 00:00:00 00:00:00 Dimitrizechariah Dewey 350.1.13.10 ity of [place] 4.2.7.2.686 [place] [phone] Co dicvt nal 059 [facility] 2019-12-19 2019-12-19 Office [facility] 1.2.840.114 [id number] Univers 11:30:41 12:16:36 Visit Nita Palomo 350.1.13.10 i ty of [place] 4.2.7.2.686 [place] [phone] Co dical nal 085 [facility] 2019-12-19 2019-12-19 Outpatient R NITA DEGROOT [facility] 10 [id number] Univers 11:40:00 11:40:00 NITA DEGROOT i ty of [facility] 2019-12-19 2019-12-19 Telephone [facility] 1.2.775.465 [id number] Univers 00:00:00 00:00:00 Qialisazechariah Palomo 350.1.13.10 ity of [place] 4.2.7.2.686 [place] [phone] Co dicvt nal 059 [facility] 2019-12-18 2019-12-18 Orders Doctor YANA 1.2.840.114 [id number] Univers 00:00:00 00:00:00 Only Unassigned, THELMA 350.1.13.10 ity of [place] [facility] 4.2.7.2.686 Bernabe as [phone] [address] 2019-12-16 2019-12-16 Office [facility] 1.2.840.114 [id number] Univers 08:53:47 09:13:47 Visit Silverio [place] 350.1.13.10 i ty of [place] 4.2.7.2.686 [place] [phone] [facility] nal 059 [facility] 2019-12-16 2019-12-16 Outpatient R KIA [facility] [id number] Univers 09:00:00 09:00:00 SILVERIO ity of [facility] 2019-12-15 2019-12-15 Telephone [facility] 1.2.840.114 [id number] Univers 00:00:00 00:00:00 Wondiful A Health 350.1.13.10 ity of [place] 4.2.7.2.686 Bernabe as Professio [phone] [facility] [address] Office [facility] One 2019-12-15 2019-12-15 Case [facility] 1.2.840.114 [id number] Univers 00:00:00 00:00:00 Management Wondiful A Health 350.1.13.10 ity of [place] 4.2.7.2.686 Bernabe as Professio [phone] [facility] [address] Building [facility] 2019-12-10 2019-12-10 Orders Doctor YANA 1.2.840.114 [id number] Univers 00:00:00 00:00:00 Only Unassigned, THELMA 350.1.13.10 ity of [place] [facility] 4.2.7.2.686 Bernabe as [phone] [address] 2019-12-09 2019-12-09 Urgent Provider, [facility] 1.2.840.114 [id number] Univers 14:46:41 15:59:38 Care Yeni [facility] 350.1.13.10 ity of [place] 4.2.7.2.686 Bernabe as Professio [phone] [address] Office [facility] 2019-12-09 2019-12-09 Outpatient R LUKE [facility] [id number] Univers 15:00:00 15:00:00 MONICA ity of [facility] 2019-12-04 2019-12-04 Office [facility] 1.2.840.114 [id number] Univers 12:39:51 13:39:11 Visit Wonjoshua A Health 350.1.13.10 ity of [place] 4.2.7.2.686 Bernabe as Professio [phone] [address] Office [facility] 2019-12-04 2019-12-04 Outpatient [facility] [id number] Univers 13:00:00 13:00:00 WONDIFUL ity o f [facility] 2019-12-02 2019-12-02 Laboratory Pacemaker/Icd, [facility] 1.2. 840.114 [id number] Univers 10:50:24 11:27:03 Only Sriram [place] 350.1.13.10 ity of [place] 4.2.7.2.686 [place] [phone] [facility] 059 [facility] 2019-12-02 2019-12-02 Outpatient R [facility] [id number] Univers 11:00:00 11:00:00 ity of [facility] 2019-12-02 2019-12-02 [facility]phone [facility] 1.2.840.114 [id number] Univers 00:00:00 00:00:00 [facility] [id number] ity of [place] [id number] [place] as Professio [phone] Co dical nal [address] [place] [facility] One 2019-12-01 2019-12-01 Office [facility] 1.2.840.114 [id number] Univers 15:16:46 16:01:04 Visit Sriram Palomo [id number] [id number] [phone] Co dical nal 059 [facility] 2019-12-01 2019-12-01 Outpatient R KUMAR [facility] [id number] Univers 15:40:00 15:40:00 GUILLELISAZECHARIAH martyy o f [facility] 2019-12-01 2019-12-01 Transition Jono Mccurdy 1.2.840.114 [id number] Univers 00:00:00 00:00:00 of Care Jo L Mg 350.1.13.10 i ty of [place] [facility] [id number] [phone] [facility] [address] [place] 2019-11-26 2019-11-28 Hospital Kirt Thomason [facility] 1.2.840.1 [id number] Univers 14:42:00 15:06:00 Encounter Gab Servin [id number] [id number] [phone] [facility] [address] 2019-11-26 2019-11-28 Inpatient X GAB SERVIN [facility] SAMI [id number] Univers 14:42:00 15:06:00 ity of [facility] 2019-11-26 2019-11-26 [facility]phone [facility] 1.2.840.114 [id number] Univers 00:00:00 00:00:00 Wondiful A Health 350.1.13.10 ity of [place] 4.2.7.2.686 Bernabe as Professio [phone] Co dical nal [address] One 2019-11-24 2019-11-24 [facility]medici [facility] 1.2.840.114 [id number] Univers 12:42:21 16:15:48 ne Visit Wondiful A Health 350.1.13.10 ity of [place] 4.2.7.2.686 Bernabe as Professio [phone] [facility] nal [address] One 2019-11-24 2019-11-24 Outpatient [facility] [id number] Univers 15:30:00 15:30:00 WONDIFUL ity o f [facility] 2019-11-24 2019-11-24 Transition Jono Henry 1.2.840.114 [id number] Univers 00:00:00 00:00:00 of Care Cielo Mg 350.1.13.10 it y of [place]2.[place].2.[place] [phone] [facility] [address] 2019-11-24 2019-11-24 Orders Doctor YANA 1.2.840.114 [id number] Univers 00:00:00 00:00:00 Only Unassigned, THELMA 350.1.13.10 ity of [place] [facility] 4.2.7.2.686 Bernabe as [phone] [facility] [address] 2019-11-21 2019-11-21 Transition Jono Henry 1.2.840.114 [id number] Univers 00:00:00 00:00:00 of Care Cielo Mg 350.1.13.10 it y of [place]2.[place].2.[place] [phone] [facility] [address] 2019-11-08 2019-11-20 [facility] Craig 1.2.840.114 [id number] Univers 18:18:00 16:52:00 Encounter Argenis Barnett [employer] 350.1.13.1 0 ity of [facility] 4.2.7.2 .686 [place] [phone] [facility] [address] 2019-11-08 2019-11-20 [facility] [id number] Univers 18:18:00 16:52:00 AHMED ity of [facility] 2019-11-20 2019-11-20 Cali [facility] 1.2.840.114 [id number] Univers 00:00:00 00:00:00 Wondiful A Health 350.1.13.10 ity of [place] 4.2.7.2.686 Bernabe as Professio [phone] [address] 2019-11-19 2019-11-19 Outpatient [facility] [id number] Univers 14:30:00 14:30:00 [facility] 2019-11-19 2019-11-19 Refisra [facility] 1.2.840.114 [id number] Univers 00:00:00 00:00:00 Wondiful A Health 350.1.13.10 ity of [place] 4.2.7.2.686 Bernabe as Professio [phone] [address] 2019-11-17 2019-11-17 Outpatient R [facility] [id number] Univers 08:00:00 08:00:00 SILVERIO ity [facility] 2019-11-14 2019-11-14 Outpatient R [facility] [id number] Univers 09:00:00 09:00:00 ity of [facility] 2019-11-10 2019-11-10 Ely [facility] 1.2.840.114 [id number] Univers 00:00:00 00:00:00 Wondiful A Health 350.1.13.10 ity of [place] 4.2.7.2.686 Bernabe as Professio [phone] [address] One 2019-11-08 2019-11-08 Cali [facility] 1.2.840.114 [id number] Univers 00:00:00 00:00:00 Wondiful A Health 350.1.13.10 ity of [place] 4.2.7.2.686 Bernabe as Professio [phone] [address] Office Building One 2019-11-05 2019-11-05 Hospital Kia [facility] 1.2.840.114 [id number] Univers 07:42:01 23:59:00 Encounter Silverio Health 350.1.13.10 [place] of [place] [phone] [address] ([facility]) 2019-11-05 2019-11-05 Outpatient R KIA [facility] [id number] Univers 00:00:00 00:00:00 SILVERIO ity of [facility] 2019-10-29 2019-10-29 Pre Visit Major [facility] 1.2.840.114 [id number] Univers 00:00:00 00:00:00 Outreach Wondiful A Health 350.1.13.10 ity of [place] 4.2.7.2.686 Bernabe as Professio [phone] [address] Office Building One 2019-10-29 2019-10-29 Pre Visit Major [facility] 1.2.840.114 [id number] Univers 00:00:00 00:00:00 Outreach Wondiful A Health 350.1.13.10 ity of [place] 4.2.7.2.686 Bernabe as Professio [phone] [address] Office Building One 2019-10-28 2019-10-28 Office Major [facility] 1.2.840.114 [id number] Univers 08:55:08 09:43:57 Visit Wondiful A Health 350.1.13.10 ity of [place] 4.2.7.2.686 Bernabe as Professio [phone] [address] Office Building [facility] 2019-10-28 2019-10-28 Outpatient R MAJOR [facility] [id number] Univers 09:30:00 09:30:00 WONDIFUL ity o f [facility] 2019-10-24 2019-10-24 Emergency Lukasz [facility] 1.2.097.276 [id number] Univers 19:34:00 23:51:00 Lubna S [place] 350.1.13.10 ity of [place].2.7.2.[place] [phone] [facility] [address] 2019-10-24 2019-10-24 Emergency X LUKASZ, [facility] ERT [id number] Univers 19:34:00 23:51:00 LUBNA ity of [facility] 2019-10-24 2019-10-24 Telephone [facility] 1.2.840.114 [id number] Univers 00:00:00 00:00:00 Wondiful A Health 350.1.13.10 ity of [place] 4.2.7.2.686 Bernabe as Professio [phone] [address] Office Building [facility] 2019-10-24 2019-10-24 Orders Doctor YANA 1.2.840.114 [id number] Univers 00:00:00 00:00:00 Only Unassigned, THELMA 350.1.13.10 ity of [place] [facility] 4.2.7.2.686 Bernabe as [phone] [facility] [address] 2019-10-21 2019-10-21 Telephone Mary Kay Adam 1.2.763.965 [id number] Univers 00:00:00 00:00:00 Silverio [employer] 350.1.13.10 it y of Hospital 4.2.7.2.686 Bernabe as [phone] [facility] [address] 2019-10-09 2019-10-09 Telephone GLENNA Adam 1.2.840.114 [id number] Univers 00:00:00 00:00:00 Silverio Y HEALTH 350.1.13.10 i ty of CL[place].2.[place] [phone] [facility] [address] 2019-10-08 2019-10-08 Telephone [facility] 1.2.840.114 [id number] Univers 00:00:00 00:00:00 Wondiful A Health 350.1.13.10 ity of [place] 4.2.7.2.686 Bernabe as Professio [phone] [address] Office [facility] 2019-10-08 2019-10-08 Ely [facility] 1.2.400.508 [id number] Univers 00:00:00 00:00:00 Silverio [place] 350.1.13.10 i ty of [place]2.7.2.[place] Profess[place] [phone] [facility] 059 [facility] 2019-10-01 2019-10-01 Orders Doctor YANA 1.2.840.114 [id number] Univers 00:00:00 00:00:00 Only Unassigned, THELMA 350.1.13.10 ity of [place] [facility] 4.2.7.2.686 Bernabe as [phone] [address] 2019-09-23 2019-09-23 Telephone [facility] 1.2.943.510 [id number] Univers 00:00:00 00:00:00 Silverio [place] 350.1.13.10 i ty of [place].2.[place].2.[place] Profess[place] [phone] [facility] 059 [facility] 2019-09-18 2019-09-18 Telephone [facility] 1.2.840.114 [id number] Univers 00:00:00 00:00:00 Wondiful A [place] 350.1.13.10 it[place] of [place] 4.2.7.2.[place] [phone] [facility] 044 [facility] 2019-09-17 2019-09-17 [facility] 1.2.662.789 [id number] Univers 00:00:00 00:00:00 Silverio [place] 350.1.13.10 i ty [place]2.7.2.[place] [phone] [place] 863559 [facility] 2019-09-16 2019-09-16 Office [facility] 1.2.840.114 [id number] Univers 10:18:05 12:06:59 Visit Silverio [place] 350.1.13.10 i ty of [place] 4.2.7.2.[place] [phone] [place] 863559 [facility] 2019-09-16 2019-09-16 Outpatient [facility] [id number] Univers 10:40:00 10:40:00 SILVERIO ity of [facility] 2019-09-16 2019-09-16 Telephone [facility] 1.2.266.604 [id number] Univers 00:00:00 00:00:00 Dimitrizechariah [place] 350.1.13.10 ity of [place] 4.2.7.2.[place] [phone] [place] 863559 [facility] 2019-09-15 2019-09-15 Laboratory Pc, Adc Echo Room 1 - [facility] 1 .2.840.114 [id number] Univers 09:42:44 11:10:38 Only Kumar Sriram Pal[place] 350.1.13.10 ity of [place].2.7.2.[place] Profess[place] [phone] [address] 2019-09-15 2019-09-15 Outpatient R [facility] [id number] Univers 10:00:00 10:00:00 ity of [facility] 2019-09-10 2019-09-10 Telephone [facility] 1.2.840.114 [id number] Univers 00:00:00 00:00:00 Wondiful A Dewey 350.1.13.10 ity of [place].2.[place] Profess[place] [phone] [address] 2019-09-08 2019-09-08 Office [facility] 1.2.840.114 [id number] Univers 13:10:22 13:44:08 Visit Sriram [place] 350.1.13.10 ity of [place]2.7.2.[place] Profess[place] [phone] [address] 2019-09-08 2019-09-08 Outpatient [facility] [id number] Univers 13:20:00 13:20:00 SRIRAM fergusony o f [facility] 2019-08-25 2019-08-25 Refill [facility] 1.2.840.114 [id number] Univers 00:00:00 00:00:00 Sriram Health 350.1.13.10 i ty of [place] 4.2.7.2.686 Bernabe as Professio [phone] [address] Office [facility] One 2019-08-18 2019-08-18 Telephone Kumar, [facility] 1.2.201.025 [id number] Univers 00:00:00 00:00:00 Sriram Palomo 350.1.13.10 ity of [place].2.7.2.[place] Profess[place] [phone] Co dicvt nal 059 [facility] 2019-08-15 2019-08-15 Nurse Visit, [facility] Nurse [facility] 1.2.840.1 14 [id number] Univers 09:12:28 21:57:47 Visit Dago Gross 350.1.13. 10 ity of [place]2.7.2.[place] Profess[place] [phone] Co dical nal 059 [facility] 2019-08-15 2019-08-15 Rate Inserter 2, [facility] Lab [facility] 1.2.840.114 [id number] Univers 10:09:35 10:24:35 Visit Dago Gross 350.1.13. 10 it[place] of [place] 4.2.7.2.[place] Profess[place] [phone] Co dical nal 353 [facility] 2019-08-15 2019-08-15 Outpatient R [facility] [id number] Univers 09:30:00 09:30:00 ity of [facility] 2019-08-13 2019-08-13 Office [facility] 1.2.840.114 [id number] Univers 16:05:34 16:57:20 Visit Alexey Palomo 350.1.13.10 i ty of [place].2.7.2.[place] [phone] Co dical nal 220 [facility] 2019-08-13 2019-08-13 Outpatient [facility] [id number] Univers 16:30:00 16:30:00 ALEXEY ity [facility] 2019-08-13 2019-08-13 Orders Doctor MILLAN 1.2.840.114 [id number] Univers 00:00:00 00:00:00 Only Unassigned, THELMA 350.1.13.10 ity of [place] [facility] 4.2.7.2.686 Bernabe as [phone] [address] 2019-08-13 2019-08-13 Refill [facility] 1.2.840.114 [id number] Univers 00:00:00 00:00:00 Sriram [place] 350.1.13.10 it[place] of [place].2.[place] [phone] [address] 2019-08-07 2019-08-07 Refill [facility] 1.2.840.114 [id number] Univers 00:00:00 00:00:00 Wondiful A Health 350.1.13.10 ity of [place] 4.2.7.2.686 Bernabe as Professio [phone] [address] 2019-08-04 2019-08-04 Rate Inserter Pc, Adc Vascular Room 1 - [facility] 1.2.840.114 [id number] Univers 10:43:00 11:05:18 Visit Sriram Heath 350.1.13.10 it[place] of [place].2.7.2.[place] Profess[place] [phone] [address] 2019-08-04 2019-08-04 Outpatient R [facility] [id number] Univers 11:00:00 11:00:00 ity of [facility] 2019-08-04 2019-08-04 Telephone [facility] 1.2.211.382 [id number] Univers 00:00:00 00:00:00 Sriram Palomo 350.1.13.10 it[place] of [place].2.[place] Profess[place] [phone] [address] 2019-08-03 2019-08-03 Refisra [facility] 1.2.840.114 [id number] Univers 00:00:00 00:00:00 Wondiful A Health 350.1.13.10 ity of [place] 4.2.7.2.686 Bernabe as Professio [phone] [address] 2019-07-30 2019-07-30 Office [facility] 1.2.840.114 [id number] Univers 13:54:46 14:40:55 Visit Guillelisazechariah Dewey 350.1.13.10 ity of [place] 4.2.7.2.[place] Profess[place] [phone] [place] 863559 [facility] 2019-07-30 2019-07-30 Outpatient [facility] [id number] Univers 14:20:00 14:20:00 SRIRAM ity o f [facility] 2019-07-30 2019-07-30 Orders Doctor YANA 1.2.840.114 [id number] Univers 00:00:00 00:00:00 Only Unassigned, THELMA 350.1.13.10 ity of [place] [facility] 4.2.7.2.686 Bernabe as [phone] [address] 2019-07-17 2019-07-17 Orders Doctor YANA 1.2.840.114 [id number] Univers 00:00:00 00:00:00 Only Unassigned, THELMA 350.1.13.10 ity of [place] [facility] 4.2.7.2.686 Bernabe as [phone] [address] 2019-07-16 2019-07-16 Telephone [facility] 1.2.840.114 [id number] Univers 00:00:00 00:00:00 Wondiful A Health 350.1.13.10 ity of [place] 4.2.7.2.686 Bernabe as Professio [phone] [facility] 044 [facility] One 2019-07-01 2019-07-01 Telephone [facility] 1.2.135.435 [id number] Univers 00:00:00 00:00:00 Guillelisazechariah [place] 350.1.13.10 it[place] of [place]2.[place].2.[place] Profess[place] [phone] [facility] 059 [facility] 2019-06-30 2019-06-30 Rate Inserter [place], Adc Lab Main [facility] 1.2.8 40.114 [id number] Univers 07:52:57 08:07:57 Visit Kumar Sriram Palomo 350.1.13.10 it[place] of [place].2.7.2.[place] [phone] [facility] 353 [facility] 2019-06-30 2019-06-30 Outpatient R KUMAR, [facility] [id number] Univers 08:00:00 08:00:00 SRIRAM de oliveira o f [facility] 2019-06-25 2019-06-25 Outpatient R KUMAR, [facility] [id number] Univers 09:40:00 09:40:00 SRIRAM fergusony o [facility] 2019-06-25 2019-06-25 Telemedici [facility] 1.2.840.114 [id number] Univers 08:37:50 08:57:50 ne Visit Sriram [place] 350.1.13.10 it[place] of [place] 4[place]2.7.2.[place] Profess[place] [phone] [facility] 059 [facility] 2019-05-28 2019-05-28 Refisra [facility] 1..840.114 [id number] Univers 00:00:00 00:00:00 Wondiful A Health 350.1.13.10 ity of [place] 4.2.7.2.686 Bernabe as Professio [phone] [facility] 044 [facility] 2019-05-25 2019-05-25 [facility] [place] [facility] 1..840.114 [id number] Univers 00:00:00 00:00:00 Wondiful A Health 350.1.13.10 ity of [place] 4.2.7.2.686 Bernabe as Professio [phone] [address] 2019-05-21 2019-05-21 Outpatient R ALEXUS RAMOS [facility] [id number] Univers 10:00:00 10:00:00 ALEXUS RAMOS ity [facility] 2019-05-20 2019-05-20 Telemgisell HeathLOVELACE [facility] 1..840.114 [id number] Univers 13:50:59 14:10:59 ne [facility] [place] 350.1.13.10 [place].2.7.2.[place] [phone] Co dical nal 059 [facility] 2019-05-20 2019-05-20 Outpatient R KUMAR, [facility] [id number] Univers 13:40:00 13:40:00 QIALISAZECHARIAH ity o f [facility] 2019-05-20 2019-05-20 Telephone [facility] 1.2.840.114 [id number] Univers 00:00:00 00:00:00 Wondiful A Health 350.1.13.10 ity of [place] 4.2.7.2.686 Bernabe as Professio [phone] Co dical nal [address] Office [facility] 2019-05-13 2019-05-13 Telephone [facility] 1.2.976.210 [id number] Univers 00:00:00 00:00:00 Qiangzechariah [place] 350.1.13.10 ity of [place] 4.2.7.2.[place] [phone] Co dical nal 059 [facility] 2019-05-09 2019-05-09 Refill [facility] 1.2.840.114 [id number] Univers 00:00:00 00:00:00 Wondiful A Health 350.1.13.10 ity of [place] 4.2.7.2.686 Bernabe as Professio [phone] Co dical nal [address] Office [facility] 2019-05-02 2019-05-02 Telephone [facility] 1.2.840.114 [id number] Univers 00:00:00 00:00:00 Wondiful A Health 350.1.13.10 ity of [place] 4.2.7.2.686 Bernabe as Professio [phone] Co dical nal [address] Office [facility] 2019-05-02 2019-05-02 Telephone CastleL[facility] 1.2.686.494 [id number] Univers 00:00:00 00:00:00 Wentong [place] 350.1.13.10 i ty [place].2.7.2.[place] [phone] Co dical nal 220 [facility] 2019-04-30 2019-04-30 Rate Inserter [place], Adc Lab Main [facility] 1.2.8 40.114 [id number] Univers 09:32:20 09:47:20 Visit Sriram Heath 350.1.13.10 it[place] of [place] 4.2.7.2.[place] [phone] Co dical nal 353 [facility] 2019-04-30 2019-04-30 Outpatient [facility] [id number] Univers 09:45:00 09:45:00 SRIRAM fergusony o f [facility] 2019-04-30 2019-04-30 Telephone [facility] 1.2.840.114 [id number] Univers 00:00:00 00:00:00 WonZolpy A cheerapp 350.1.13.10 ity of [place] 4.2.7.2.686 Bernabe as Professio [phone] Co dical nal 044 [facility] One 2019-04-28 2019-04-28 Office [facility] 1.2.840.114 [id number] Univers 13:21:45 14:34:07 Visit Sriram Palomo 350.1.13.10 it[place] 4[place]2.7.2.[place] [phone] Co dical nal 059 [facility] 2019-04-28 2019-04-28 Outpatient R KUMAR [facility] [id number] Univers 13:20:00 13:20:00 SRIRAM ity o f [facility] 2019-04-09 2019-04-09 Rate Inserter Luís Coleman Lab Main [facility] 1.2.8 40.114 [id number] Univers 16:15:01 16:30:01 Visit Alexey [place] 350.1.13.10 it[place].2.[place] [phone] Co dical sathya 353 [facility] 2019-04-09 2019-04-09 Office [facility] 1.2.840.114 [id number] Univers 15:08:31 15:58:05 Visit Alexey Dewey 350.1.13.10 i ty [place] 4.2.7.2.[place] [phone] Co dical nal 220 [facility] 2019-04-09 2019-04-09 Orders Doctor YANA 1.2.840.114 [id number] Univers 00:00:00 00:00:00 Only Unassigned, THELMA 350.1.13.10 ity of [place] [facility] 4.2.7.2.686 Bernabe as [phone] [address] 2019-03-14 2019-03-30 Nurse Visit, [facility] Nurse [facility] 1.2.840.1 14 [id number] Univers 08:39:08 18:06:53 Visit Dago Gross 350.1.13. 10 it[place]2.[place].2.[place] [phone] [facility] 059 [facility] 2019-03-28 2019-03-28 Telephone Major [facility] 1.2.840.114 [id number] Univers 00:00:00 00:00:00 Wondiful A Health 350.1.13.10 ity of [place] 4.2.7.2.686 Bernabe as Professio [phone] [facility] 044 [facility] 2019-03-24 2019-03-24 Telephone Major [facility] 1.2.840.114 [id number] Univers 00:00:00 00:00:00 Wondiful A Health 350.1.13.10 ity of [place] 4.2.7.2.686 Bernabe as Professio [phone] [facility] 044 [facility] 2019-03-14 2019-03-14 Outpatient R GINNY [facility] [id number] Univers 09:15:00 09:37:46 SENDIL ity of [facility] 2019-03-14 2019-03-14 Orders Doctor YANA 1.2.840.114 [id number] Univers 00:00:00 00:00:00 Only Unassigned, THELMA 350.1.13.10 ity of [place] [facility] 4.2.7.2.686 Bernabe as [phone] [address] 2019-03-06 2019-03-06 Telephone [facility] 1.2.840.114 [id number] Univers 00:00:00 00:00:00 Wondiful A Health 350.1.13.10 ity of [place] 4.2.7.2.686 Bernabe as Professio [phone] [place] [address] [address] One 2019-01-27 2019-01-27 Outpatient R KUMAR, [facility] [id number] Univers 14:20:00 14:44:45 SRIRAM fergusony o f [facility] 2019-01-19 2019-01-19 Emergency X MARIO, [facility] ERT [id number] Univers 10:06:29 15:10:00 EVAN de oliveira [facility] 2019-01-06 2019-01-06 Outpatient [facility] [id number] Univers 15:00:00 15:00:00 CLARE de oliveira o f [facility] 2018-12-11 2018-12-11 Outpatient [facility] [id number] Univers 08:45:00 08:45:00 EKATERINA de oliveira [facility] 2018-11-01 2018-11-01 Telephone [facility] 1.2.840.114 [id number] Univers 00:00:00 00:00:00 Wissam HEALTH 350.1.13.10 it y of [facility] 4.2.7.2.686 [facility] [phone] [facility] Primary & 0[address] [facility] 2018-10-31 2018-10-31 Telephone [facility] 1.2.840.114 [id number] Univers 00:00:00 00:00:00 Wondiful A Health 350.1.13.10 ity of [place] 4.2.7.2.686 Bernabe as Professio [phone] [place] [address] [address] Office [address] One 2018-10-30 2018-10-30 Telephone SullivanL[facility] 1.2.362.318 [id number] Univers 00:00:00 00:00:00 Madeleine Rica HEALTH 350.1.13.10 ity of [place] 4.2.7.2.686 [facility] s [facility] [phone] [facility] Primary & 0[address] [facility] 2018-10-30 2018-10-30 Telephone [facility] 1.2.840.114 [id number] Univers 00:00:00 00:00:00 Wondiful A Health 350.1.13.10 ity of [place] 4.2.7.2.686 Bernabe as Professio [phone] Co dical nal [address] One 2018-10-29 2018-10-29 Office Cookie [facility] 1.2.840.114 [id number] Univers 13:11:56 13:52:23 Visit [facility] [id number] i ty of [place] [id number] Bernabe as Professio [phone] Co dical nal [address] [facility] 2018-10-28 2018-10-29 Office Fac, Adc Heart Failure Cardio [facility] 1.2.840.114 [id number] Univers 15:47:43 12:03:16 Visit Edgar Cortés [place] 350.1 .13.10 ity of [place] 4.2.7.2.686 [facility] Professio [phone] Co dical nal 059 [facility] 2018-10-28 2018-10-28 Hospital Nate [facility] 1.2.840.114 [id number] Univers 16:46:06 23:59:00 Encounter Madeleine Palomo [id number] [facility] [place] 4.2.7.2.686 [facility] [place] [phone] [facility] [address] 2018-10-28 2018-10-28 Rate Inserter 1, Adc Lab [facility] 1.2.840.114 [id number] Univers 16:41:14 16:56:14 Visit Madeleine Sullivan [id number] [place] 4.2.7.2.686 [place] [phone] [facility] [address] 2018-10-28 2018-10-28 Orders Doctor YANA 1.2.840.114 [id number] Univers 00:00:00 00:00:00 Only Unassigned, THELMA 350.1.13.10 ity of [place] [facility] 4.2.7.2.686 Bernabe as [phone] [facility] [address] 2018-10-24 2018-10-24 Cali Dorsey [facility] [facility] 1.2.840.114 [id number] Univers 00:00:00 00:00:00 [place] 350.1.13.10 it y [place] 4[place]7.2.686 [place] [phone] [facility] 2018-10-14 2018-10-14 Refill Freddy, [facility] 1.2.840.114 [id number] Univers 00:00:00 00:00:00 Min [place] 350.1.13.10 i ty [place] [phone] [address] Building 2018-10-01 2018-10-01 Orders Doctor YANA 1.2.840.114 [id number] Univers 00:00:00 00:00:00 Only Unassigned, THELMA 350.1.13.10 ity of [place] [facility] 4.2.7.2.686 [place] [phone] [facility] 009 Branch 2018-09-26 2018-09-26 Rate Inserter Lab, [facility] Fam Pob I [facility] 1.2. 840.114 [id number] Univers 13:45:07 15:25:16 Visit Major [facility] 350.1.13.1 0 ity of [place] 4.2.7.2.686 [place] as Professio [phone] [address] Office Building One 2018-09-26 2018-09-26 Telephone Fac, [facility] 1.2.840.114 [id number] Univers 00:00:00 00:00:00 Heart HEALTH 350.1.13.10 it [place].2.[place] [phone] [facility] 2018-09-10 2018-09-10 Office Major [facility] 1.2.840.114 [id number] Univers 12:36:16 13:37:40 Visit [facility] 350.1.13.10 ity of [place] 4.2.7.2.686 [place]abe as Professio [phone] [address] Office Building One 2018-09-02 2018-09-02 Orders Doctor YANA 1.2.840.114 [id number] Univers 00:00:00 00:00:00 Only Unassigned, THELMA 350.1.13.10 ity of [place] [facility] 4.2.7.2.686 Bernabe as [phone] [address] Results Test Description Test Time Test Comments Results Result Comments Source POCT GLUCOSE (AUTOMATED) 2022-02-19 18:34:13 Test Item Value Reference Range Interpretation Comme nts POCT GLU (test code = 4788246057) 354 mg/dL 70-110 H Lab Interpretation (test code = 85069-2) [facility] 14:51:34 Test Item Value Reference Range Interpretation Comments POCT GLU (test code = 9618382170) 158 mg/dL 70-110 H Lab Interpretation (test code = Abnormal 92274-3) [facility]19 07:09:11 Test Item Value Reference Range Interpretation Comments POCT GLU (test code = 8412969424) 109 mg/dL 70-110 Lab Interpretation (test code = Normal 90077-0) [facility]19 06:15:00 Test Item Value Reference Range Interpretation Comments POCT GLU (test code = 4916825350) 56 mg/dL 70-110 L Lab Interpretation (test code = Abnormal 25410-0) [facility]19 03:41:03 Test Item Value Reference Range Interpretation Comments POCT GLU (test code = 9438049266) 197 mg/dL 70-110 H Lab Interpretation (test code = Abnormal 73869-2) [facility]2022-02-18 23:17:16 Test Item Value Reference Range Interpretation Comments POCT GLU (test code = 3063249056) 240 mg/dL 70-110 H Lab Interpretation (test code = Abnormal 73651-8) [facility] 18:24:23 Test Item Value Reference Range Interpretation Comments POCT GLU (test code = 7716176631) 274 mg/dL 70-110 H Lab Interpretation (test code = Abnormal 93778-5) [facility]22-[facility]-18 18:24:18 Test Item Value Reference Range Interpretation Comments POCT GLU (test code = 1304781199) 92 mg/dL 70-110 Lab Interpretation (test code = Normal 53050-3) [facility] (Total Cholesterol, Triglycerides, HDL) - [id number] 12:27:34 Test Item Value Reference Range Interpretation Comments CHOL (test code = 146 mg/dL 120-200 9726442229) HDL (test code = 54 mg/dL See_Comment [Automated message] 9258677594) The system CO-Value generated this result transmit luis miguel reference range : >=50. The refer ence range was not u sed to interpret th is result as normal/abnormal . HDLC RATIO (test code = See_Comment [Au tomated message] 3523977402) The system CO-Value generated this result transmit luis miguel reference range : <=4.5. The refe rence range was not u sed to interpret th is result as normal/abnormal . TRIG (test code = 113 mg/dL 30-170 2575259128) LDL CHOL (test code = 69 mg/dL See_Comment [Auto mated message] 86649-9) The system CO-Value generated this result transmit luis miguel reference range : <=160. The refe rence range was not u sed to interpret th is result as normal/abnormal . VLDL (test code = 23 mg/dL 5-60 0459258598) Lab Interpretation (test Normal code = 33706-1) [facility] [id number] 12:27:34 Test Item Value Reference Range Interpretation Comments NT-proBNP (test code 69065 pg/mL See_Comment H [Autom ated = 2902865764) message] The system which generated this result transmitted reference range : <=450. The reference range was not used to interpret this result as normal/abnormal . SEN (test code = SEN) Biotin has been reported to cause a negative bias, interpret results relative to patient's use of biotin. Lab Interpretation Abnormal (test code = 54784-4) [facility] (NA, K, CL, CO2, GLUCOSE, BUN, CREATININE, CA)2022-02-18 12:27:14 Test Item Value Reference Range Interpretation Comments NA (test code = 137 mmol/L 135-145 7261425230) K (test code = 4.0 mmol/L 3.5-5.0 9183910857) CL (test code = 104 mmol/L 98-108 2171120987) CO2 TOTAL (test code = 25 mmol/L 23-31 0657170623) AGAP (test code = 2-16 6223022077) BUN (test code = 62 mg/dL 7-23 H 2213287931) GLUCOSE (test code = 90 mg/dL 70-110 3890814382) CREATININE (test code = 2.02 mg/dL 0.50-1.04 H 9474115962) CALCIUM (test code = 8.3 mg/dL 8.6-10.6 L 4500721945) eGFR (test code = mL/min/1.73m2 9045560537) SEN (test code = SEN) Association of [...] tests). Lab Interpretation Abnormal (test code = 79589-5) [facility] WITH [id number] 11:30:43 Test Item Value Reference Range Interpretation [...] RDW-SD (test code = 46.4 fL 39.0-49.9 01331-2) RDW-CV (test code = 13.2 % 12.0-15.5 788-0) PLT (test code = See_Comment [Automated 777-3) message] The sy stem which generated this result transmitted reference range : 166 - 358 10*3/ ?L. The reference r beltran was not used to interpret this result as normal/abnormal . MPV (test code = 13.0 fL 9.5-12.9 H 55910-8) NRBC/100 WBC (test See_Comment [Automat ed code = 1453813805) message] The system which generated this result transmitted reference range : 0.0 - 10.0 /100 WBCs. The refer ence range was not u sed to interpret th is result as normal/abnormal . NRBC x10^3 (test code See_Comment [Auto mated = 7976675094) message] The s ystem which generated this result transmitted reference range : 10*3/?L. The reference range was not used to interpret this result as normal/abnormal . GRAN MAT (NEUT) % 58.4 % (test code = 770-8) IMM GRAN % (test code 0.30 % = 1469128493) LYMPH % (test code = 27.5 % 736-9) MONO % (test code = 9.3 % 5905-5) EOS % (test code = 4.2 % 713-8) BASO % (test code = 0.3 % 706-2) GRAN MAT x10^3(ANC) 3.71 10*3/uL 1.88-7.09 (test code = 4936343975) IMM GRAN x10^3 (test 0.00-0.06 code = 0954183799) LYMPH x10^3 (test code 1.75 10*3/uL 1.32-3.29 = 731-0) MONO x10^3 (test code 0.59 10*3/uL 0.33-0.92 = 742-7) EOS x10^3 (test code = 0.27 10*3/uL 0.03-0.39 711-2) BASO x10^3 (test code 0.01-0.07 = 704-7) Lab Interpretation Abnormal (test code = 03542-5) [facility] GLUCOSE (AUTOMATED)2022-02-18 02:39:08 Test Item Value Reference Range Interpretation Comments POCT GLU (test code = 3270862105) 196 mg/dL 70-110 H Lab Interpretation (test code = Abnormal 74268-8) [facility] GLUCOSE (AUTOMATED)2022-02-17 23:16:54 Test Item Value Reference Range Interpretation Comments POCT GLU (test code = 6348450312) 140 mg/dL 70-110 H Lab Interpretation (test code = Abnormal 66862-9) [facility]2022-02-17 19:44:53 Test Item Value Reference Range Interpretation Comments Height (test code = in 2115857852) Weight (test code = lbs 6268724667) Systolic BP (test code = mmHg 2984077860) Diastolic BP (test code mmHg = 9651546353) Heart Rate (test code = bpm 6147330139) BSA (test code = 1.81 m2 5242081608) Ao root diam (test code 3.30 cm = 7852375358) Aortic root (test code = 3.3 cm 3651952958) Ao root annulus (test 3.3 cm code = 6516386197) LVOT diameter (test code 1.89 cm = 9359241533) LVOT area (test code = 2.80 cm2 7722848996) LAV(MOD-sp4) (test code 52.90 mL = 1700002102) E wave decelartion time 0.17 s (test code = 7672386137) MV stenosis pressure 1/2 51.3 ms time (test code = 5691288406) MV Peak E Mily (test code 95.2 cm/s = 1939507942) MV Peak A Mily (test code 61.8 cm/s = 8842408017) E/A ratio (test code = ratio 9457969561) MV Prop V (test code = 23.30 cm/s 7240762843) MV E/e' septal (test 7.8 cm/s code = 9804184340) TR Peak Mily (test code = 310.8 cm/s 1495574836) Triscuspid Valve mmHg Regurgitation Peak Gradient (test code = 2150464672) Tapse (test code = 1.99 cm 0287956572) LVOT stroke volume (test 40.40 cm3 code = 3207840204) LVOT peak mily (test code 67.8 cm/s = 9122659707) LVOT mn grad (test code mmHg = 8946961519) AV LVOT peak gradient mmHg (test code = 3731138350) LVOT peak VTI (test code 14.4 cm = 7726140085) LV V1 mean (test code = 45.30 cm/s 6003572577) MR max PG (test code = 65.40 mm[Hg] 3423134801) MR max mily (test code = 404.30 cm/s 0166222257) Mr max mily (test code = 404.3 m/s 7236190365) LVIDD (test code = 6.30 cm 1189647924) Left Ventricular End 202.4 mL Diastolic Volume by Teichholz Method (test code = 8268299) IVS (test code = 0.94 cm 6314806589) Interventricular Septum 0.94 cm Diastolic Thickness by 2D (test code = 8782334) LVPWD (test code = 0.94 cm 3939781537) PW (test code = 0.94 cm 0.6-1.4 2933101226) EF(Teich) (test code = 19.10 % 4357025187) LVIDS (test code = 5.80 cm 8619850051) Left Ventricular End 163.8 mL Systolic Volume by Teichholz Method (test code = 7684096) FS (test code = 9 % 1606672193) EF - 2D (test code = 19.10 % 86621705) LA size (test code = 3.5 cm 8886071907) Radiology Study observation (narrative) (test code = 39546-0) SEN (test code = SEN) Table formatting [...] mL of Lumason ultrasound enhancing agent used. [facility] GLUCOSE (AUTOMATED)2022-02-17 18:19:03 Test Item Value Reference Range Interpretation Comments POCT GLU (test code = 6609446173) 160 mg/dL 70-110 H Lab Interpretation (test code = Abnormal 44792-5) [facility] GLUCOSE (AUTOMATED)2022-02-17 14:06:55 Test Item Value Reference Range Interpretation Comments POCT GLU (test code = 2731458240) 101 mg/dL 70-110 Lab Interpretation (test code = Normal 29679-4) [facility] GLUCOSE (AUTOMATED)2022-02-17 03:58:48 Test Item Value Reference Range Interpretation Comments POCT GLU (test code = 5074959642) 278 mg/dL 70-110 H Lab Interpretation (test code = Abnormal 93590-2) [facility] GLUCOSE (AUTOMATED)2022-02-17 03:21:46 Test Item Value Reference Range Interpretation Comments POCT GLU (test code = 8550396365) 279 mg/dL 70-110 H Lab Interpretation (test code = Abnormal 46937-1) [facility] (A1C)2022-02-17 01:58:04 Test Item Value Reference Range Interpretation Comments HGB A1C (test code = 10.0 % 4.0-5.7 H 4548-4) SEN (test code = SEN) Reference RangesNormal: <5.7%Prediabetes: 5.7 - 6.4%Diabetes: > 6.5% Lab Interpretation (test Abnormal code = 45293-5) [facility]TR[facility] [id number] 17:30:57 Test Item Value Reference Interpretation Comments Range TROPONIN I (test 0.028 ng/mL See_Comment [Automated code = 5005204169) message] The system which generated this result [...] biotin. Lab Interpretation Normal (test code = 55484-2) [facility] [id number] 17:27:54 Test Item Value Reference Range Interpretation Comments NT-proBNP (test code 84138 pg/mL See_Comment H [Autom ated = 8977446365) message] The system which generated this result transmitted reference range : <=450. The reference range was not used to interpret this result as normal/abnormal . SEN (test code = SEN) Biotin has been reported to cause a negative bias, interpret results relative to patient's use of biotin. Lab Interpretation Abnormal (test code = 38621-8) [facility] (NA, K, CL, CO2, GLUCOSE, BUN, CREATININE, CA)2022-02-16 17:19:15 Test Item Value Reference Range Interpretation Comments NA (test code = 135 mmol/L 135-145 5594739602) K (test code = 4.7 mmol/L 3.5-5.0 1227793334) CL (test code = 104 mmol/L 98-108 2049620494) CO2 TOTAL (test code = 23 mmol/L 23-31 3855054597) AGAP (test code = 2-16 5075404745) BUN (test code = 58 mg/dL 7-23 H 9814612704) GLUCOSE (test code = 260 mg/dL 70-110 H 0262104005) CREATININE (test code = 1.78 mg/dL 0.50-1.04 H 7174590186) CALCIUM (test code = 8.2 mg/dL 8.6-10.6 L 3412732908) eGFR (test code = mL/min/1.73m2 6843799916) SEN (test code = SEN) Association of [...] tests). Lab Interpretation Abnormal (test code = 30507-5) [facility] (91679[facility] (ALB,T.PRO,BILI T,BU/BC,ALT,AST,ALK PHOS)2022-02-16 17:19:15 Test Item Value Reference Range Interpretation Comments TOTAL BILI (test code = 3949173591) 0.4 mg/dL 0.1-1.1 BILI UNCON (test code = 3783169104) 0.3 mg/dL 0.1-1.1 BILI CONJ (test code = 4445550618) 0.0 mg/dL 0.0-0.3 T PROTEIN (test code = 0560697593) 6.8 g/dL 6.3-8.2 ALBUMIN (test code = 7942604406) 3.8 g/dL 3.5-5.0 ALK PHOS (test code = 0289274769) 146 U/L 34-122 H ALTv (test code = 1742-6) 29 U/L 5-35 AST(SGOT) (test code = 0774432589) 28 U/L 13-40 Lab Interpretation (test code = Abnormal 10583-5) [facility] CenterLIPASE2022-12-29 17:19:15 Test Item Value Reference Range Interpretation Comments LIPASE (test code = 5612771476) 46 U/L 0-220 Lab Interpretation (test code = Normal 48774-1) [facility] WITH [id number] 17:12:53 Test Item Value Reference Range Interpretation Comments WBC (test code = See_Comment [Automated 6690-2) message] The sy stem which generated this result transmitted reference range : 4.30 - 11.10 10*3/?L. The reference range was not used to interpret this result as normal/abnormal . RBC (test code = See_Comment L [Automated 939-8) message] The sy stem which generated this [...] RDW-SD (test code = 47.8 fL 39.0-49.9 27251-9) RDW-CV (test code = 13.5 % 12.0-15.5 788-0) PLT (test code = See_Comment [Automated 777-3) message] The sy stem which generated this result transmitted reference range : 166 - 358 10*3/ ?L. The reference r beltran was not used to interpret this result as normal/abnormal . MPV (test code = 12.9 fL 9.5-12.9 43413-1) NRBC/100 WBC (test See_Comment [Automat ed code = 7818393425) message] The system which generated this result transmitted reference range : 0.0 - 10.0 /100 WBCs. The refer ence range was not u sed to interpret th is result as normal/abnormal . NRBC x10^3 (test code See_Comment [Auto mated = 4204380560) message] The s ystem which generated this result transmitted reference range : 10*3/?L. The reference range was not used to interpret this result as normal/abnormal . GRAN MAT (NEUT) % 75.4 % (test code = 770-8) IMM GRAN % (test code 0.20 % = 8360549951) LYMPH % (test code = 14.9 % 736-9) MONO % (test code = 7.7 % 5905-5) EOS % (test code = 1.6 % 713-8) BASO % (test code = 0.2 % 706-2) GRAN MAT x10^3(ANC) 6.77 10*3/uL 1.88-7.09 (test code = 5729869930) IMM GRAN x10^3 (test 0.00-0.06 code = 1794168368) LYMPH x10^3 (test code 1.34 10*3/uL 1.32-3.29 = 731-0) MONO x10^3 (test code 0.69 10*3/uL 0.33-0.92 = 742-7) EOS x10^3 (test code = 0.14 10*3/uL 0.03-0.39 711-2) BASO x10^3 (test code 0.01-0.07 = 704-7) Lab Interpretation Abnormal (test code = 53475-4) [facility] HEMOGLOBIN A1C [id number] 15:15:00 Test Item Value Reference Range Interpretation Comments POCT HBA1C (test code = 4548-4) 7.6 % 4-6 A Lab Interpretation (test code = Abnormal 62517-8) [facility] HEMOGLOBIN A1C [id number] 15:15:00 Test Item Value Reference Range Interpretation Comments POCT HBA1C (test code = 4548-4) 7.6 % 4-6 A Lab Interpretation (test code = Abnormal 88497-2) [facility]
[2022-09-27 04:20] LABS: Lymphocytes % 12.4 % (15.3-44.8); MCV 94.6 fL (80-100); MPV 9.8 fL (7.6-11.3); Platelets 204 thou/uL (152-406); RBC Red Blood Cell Count 2.96 M/uL (3.86-4.86)
[2022-09-27] MEDS ORDERED: METHYLPREDNISOLONE 125 MG INJ ONE (04:23)
[2022-09-27 04:24] LABS: Protime INR 1.14
[2022-09-27] MEDS ORDERED: CODEINE 30MG/APAP 300MG TAB ONE (04:24)
[2022-09-27] MEDS ORDERED: PROMETHAZINE 25 MG TABLET ONE (04:24)
[2022-09-27] MEDS ORDERED: ALBUTEROL 2.5 MG/3 ML NEB SOL ONE (04:24)
[2022-09-27] MEDS ORDERED: guaiFENesin 100 MG/5 ML UCUP ONE (04:25)
[2022-09-27] MEDS ORDERED: DIPHENHYDRAMINE 25 MG TAB/CAP ONE (04:26)
[2022-09-27 04:32] LABS: ALT/SGPT 42 U/L (13-56); AST/SGOT 21 U/L (15-37); Alkaline Phosphatase 130 U/L (45-117); BUN Blood Urea Nitrogen 89 mg/dL (7-18); Bicarbonate 27 mEq/L (21-32); Bilirubin Total 0.2 mg/dL (0.2-1.0); Creatine Phosphokinase 91 U/L (26-192); Glomerular Filtration Rate 25 ml/min (=/>90); Glucose Level 172 mg/dL (74-106); Lipase 19 U/L (13-75); Magnesium 2.7 mg/dL (1.6-2.4); NT PRO-BNP 16849 pg/mL (<450); Potassium 4.1 mEq/L (3.5-5.1); Protein, Total 7.4 g/dL (6.4-8.2); Sodium Level 138 mEq/L (136-145); Troponin High Sensitivity 22.9 pg/mL (<58.9)
[2022-09-27 04:36] LABS: Bilirubin Direct < 0.1 mg/dL (0-0.2); Bilirubin Indirect, Calculated ND mg/dL (0.2-0.8)
--- NOTE | 2022-09-27 06:14 | EDPHYS ---
Physician Documentation [facility] Name: Teena Simpson Age: 77 yrs Sex: Female : 1945 Arrival Date: 09/27/2022 Time: 02:58 Bed 5 Private MD: ED Physician Jacky Casper HPI: 09/27 03:25 This 77 yrs old Female presents to ER via Unassigned with complaints of sp4 Shortness Of Breath. 06:07 Patient presents with worsening shortness of breath for the past 2 days as reported by sp4 the patient. Patient denied any chest pain on presentation.. 06:07 Past medical history is positive for systolic congestive heart failure, atrial sp4 fibrillation, chronic anticoagulation, chronic kidney disease stage IV, insulin-dependent diabetes, hypertension, hyperlipidemia. Patient has also history of NSTEMI as well. Patient was last admitted on 08/12/2022. Patient was managed for acute on chronic systolic heart failure, atrial fibrillation, insulin-dependent diabetes type 2, chronic kidney disease stage IV, hypertension, hyperlipidemia. Patient's medications include atorvastatin, insulin Novolin, phenytoin, metoprolol succinate, sacubitril/valsartan, Entresto, apixaban, furosemide, amiodarone.. Historical: - Allergies: 03:34 Augmentin; pf1 03:34 Cipro; pf1 03:34 Keppra; pf1 - PMHx: 03:34 Anxiety; Atrial Fib; CHF; Diabetes - IDDM; High Cholesterol; Hypertension; Kidney pf1 failure stage 4; Low HR; Myocardial infarction; neuropathy; Seizures; - PSHx: 03:34 Appendectomy; Hemorrhoidectomy; Pacemaker-Defib; pf1 - Immunization history:: Adult Immunizations up to date, Last tetanus immunization: < 10 years ago Pneumococcal vaccine is up to date, Flu vaccine is up to date. - Social history:: Smoking status: Patient denies any tobacco usage or history of. Patient/guardian denies using alcohol, street drugs. - Family history:: not pertinent. ROS: 06:07 Constitutional: Negative for fever, chills, and weight loss, Cardiovascular: Negative sp4 for chest pain, palpitations, positive bilateral lower extremity edema, positive orthopnea, positive dyspnea Respiratory: Negative for cough, wheezing, and pleuritic chest pain, positive for dyspnea, worsening shortness of breath. 06:07 All other systems are negative. Exam: 06:07 Constitutional: This is a well developed, well nourished patient who is awake, alert, sp4 chronic ill appearance, nontoxic-appearing, bilateral lower extremity edema, generalized pallor Head/Face: Normocephalic, atraumatic. Eyes: Pupils equal round and reactive to light, extra-ocular motions intact. Lids and lashes normal. Conjunctiva and sclera are not injected. Cornea within normal limits. Periorbital areas with no swelling, redness, or edema. ENT: Nares patent. No nasal discharge, no septal abnormalities noted. Tympanic membranes are normal and external auditory canals are clear. Oropharynx with no redness, swelling, or masses, exudates, or evidence of obstruction, uvula midline. Mucous membranes moist. Neck: Trachea midline, no thyromegaly or masses palpated, and no cervical lymphadenopathy. Supple, full range of motion without nuchal rigidity, or vertebral point tenderness. Chest/axilla: Normal chest wall appearance and motion. Nontender with no deformity. No lesions are appreciated. Cardiovascular: Regular rate and rhythm with a normal S1 and S2. No gallops, murmurs, or rubs. Normal PMI, No pulse deficits. Positive JVD, positive left chest wall pacemaker, positive bilateral lower extremity edema with pitting Respiratory: Lungs have equal breath sounds bilaterally, clear to auscultation and percussion. No rales, rhonchi or wheezes noted. No increased work of breathing, no retractions or nasal flaring. Abdomen/GI: Soft, non-tender, with normal bowel sounds. No distension or tympany. No guarding or rebound. No evidence of tenderness throughout. Back: No spinal tenderness. No costovertebral tenderness. Skin: Warm, dry with normal turgor. Normal color with no rashes, no lesions, and no evidence of cellulitis. MS/ Extremity: Pulses equal, no cyanosis. Neurovascular intact. Full, normal range of motion. Neuro: Awake and alert, GCS 15, oriented to person, place, time, and situation. Cranial nerves II-XII grossly intact. Motor strength 5/5 in all extremities. Sensory grossly intact. Psych: Awake, alert, with orientation to person, place and time. Behavior, mood, and affect are within normal limits 06:07 ECG was reviewed by the Attending Physician. There is EKG at 0 3:43 AM. There is sp4 ventricular rate of 89. AV dual chamber pacemaker. Vital Signs: 03:29 BP 121 / 70; Pulse 87; Resp 18; Temp 97.6; Pulse Ox 97% on R/A; Weight 78.47 kg; Height pf1 5 ft. 0 in. ; Pain 0/10; 05:36 BP 124 / 69; Pulse 90; Resp 18; Pulse Ox 93% ; jb4 06:27 BP 125 / 73; Pulse 90; Resp 23; Pulse Ox 93% on R/A; jb4 07:31 BP 110 / 61; Pulse 90; Resp 16; Pulse Ox 93% ; ko1 07:35 BP 116 / 64; Pulse 90; Resp 16; Pulse Ox 93% on R/A; db 09:22 BP 119 / 73; Pulse 88; Resp 18; Pulse Ox 93% on R/A; db 03:29 Body Mass Index 33.79 (78.47 kg, 152.4 cm) pf1 03:29 Pain Scale: Adult pf1 MDM: 03:26 Patient medically screened. sp4 06:11 Data reviewed: vital signs, nurses notes, old medical records, lab test result(s), EKG, sp4 radiologic studies, plain films. Consideration of Admission/Observation Escalation of care including admission/observation considered. ED course: Patient at this time has signs of mild to moderate congestive heart failure exacerbation. Patient warrants admission for management of acute heart failure.. 09/27 03:26 Order name: BMP; Complete Time: 05: sp4 09/27 03:26 Order name: CBC with Diff; Complete Time: 05: sp4 09/27 03:26 Order name: CPK; Complete Time: 05: sp4 09/27 03:26 Order name: D-Dimer; Complete Time: 05: sp4 09/27 03:26 Order name: Hepatic Function; Complete Time: 05: sp4 09/27 03:26 Order name: Lipase; Complete Time: 05: sp4 09/27 03:26 Order name: Magnesium; Complete Time: 05: sp4 09/27 03:26 Order name: NT PRO-BNP; Complete Time: 05: sp4 09/27 03:26 Order name: PT-INR; Complete Time: 05: sp4 09/27 03:26 Order name: Ptt, Activated; Complete Time: 05:07 sp4 09/27 03:26 Order name: Troponin HS; Complete Time: 05:07 sp4 09/27 07:57 Order name: CBC with Automated Diff EDMS / 07:57 Order name: CBC with Automated Diff EDMS / 07:57 Order name: Comprehensive Metabolic Panel EDMS 09/27 07:57 Order name: Comprehensive Metabolic Panel EDMS 09/27 07:57 Order name: Magnesium EDMS 09/27 07:57 Order name: Magnesium EDMS / 07:57 Order name: NT PRO-BNP EDMS 09/27 07:57 Order name: NT PRO-BNP EDMS 08/ 07:57 Order name: Phosphorus EDMS / 07:57 Order name: Phosphorus EDMS / 07:57 Order name: Troponin High Sensitivity EDMS / 07:57 Order name: Troponin High Sensitivity EDMS / 07:57 Order name: Troponin High Sensitivity EDMS / 07:57 Order name: Troponin High Sensitivity EDMS 08/ 06:04 Order name: Chest Single View XRAY sp4 09/27 07:57 Order name: Echo with Doppler EDMS 09/27 03:26 Order name: EKG; Complete Time: 03:27 sp4 09/27 07:57 Order name: CONS Physician Consult EDMS 09/27 07:57 Order name: Low Sodium EDMS / 03:26 Order name: Cardiac monitoring; Complete Time: 03:46 sp4 09/27 03:26 Order name: EKG - Nurse/Tech; Complete Time: 03:46 sp4 09/27 03:26 Order name: IV Saline Lock; Complete Time: 04:05 sp4 09/27 03:26 Order name: Labs collected and sent; Complete Time: 04:05 sp4 09/27 03:26 Order name: O2 Per Protocol; Complete Time: 03:46 sp4 09/27 03:26 Order name: O2 Sat Monitoring; Complete Time: 03:46 sp4 EC:07 Rate is 89 beats/min. Rhythm is regular, Paced. sp4 Administered Medications: 04:21 Drug: Acetaminophen-Codeine PO (300 mg-30 mg) 2 tabs Route: PO; jb4 05:56 Follow up: Response: No adverse reaction lg3 04:21 Drug: Promethazine PO 25 mg Route: PO; jb4 05:56 Follow up: Response: No adverse reaction lg3 04:21 Drug: guaiFENesin PO Liquid 15 ml Route: PO; jb4 05:56 Follow up: Response: No adverse reaction lg3 04:22 Not Given (Other Intervention Used): Albuterol Inhalation 1.25 mg Inhalation once jb4 04:22 Drug: MethylPrednisoLONE IVP 125 mg Route: IVP; Site: right antecubital; jb4 05:56 Follow up: Response: No adverse reaction lg3 04:22 Drug: diphenhydrAMINE PO 25 mg Route: PO; jb4 05:56 Follow up: Response: No adverse reaction lg3 04:22 Drug: Albuterol Inhalation 2.5 mg Route: Inhalation; jb4 05:56 Follow up: Response: No adverse reaction lg3 06:27 Drug: Furosemide IVP 40 mg Route: IVP; Site: right antecubital; jb4 09:24 Follow up: Response: No adverse reaction db Disposition Summary: 09/27/22 06:13 Hospitalization Ordered Hospitalization Status: Inpatient Admission sp4 Location: Telemetry/[facility] (Inpatient) sp4 Condition: Fair sp4 Problem: new sp4 Symptoms: have improved sp4 Bed/Room Type: Standard sp4 Provider: Sylvie Fritz(09/27/22 06:17) sp4 Room Assignment: [facility](09/27/22 08:59) Diagnosis - Congestive heart failure with exacerbation, chronic kidney disease, hypoxemia sp4 Forms: - Medication Reconciliation Form sp4 - SBAR form sp4 Signatures: Dispatcher [employer] Julia Carpio RN RN dw Ej Mcmillan RN RN jb4 Katiuska Cevallos RN RN pf1 Jacky Casper MD MD sp4 Corry Estrada RN, lg3 Judy Leigh RN db Corrections: (The following items were deleted from the chart) 06:17 06:13 Mina Peralta sp4 sp4 08:59 06:13 sp4 dw
--- NOTE | 2022-09-27 06:14 | ER ---
Nurse's Notes [facility] Name: Teena Simpson Age: 77 yrs Sex: Female : 1945 Arrival Date: 09/27/2022 Time: 02:58 Bed 5 Private MD: Diagnosis: Congestive heart failure with exacerbation, chronic kidney disease, hypoxemia Presentation: 09/27 03:29 Chief complaint: Patient states: SOB,onset 6 months, worse tonight Patient stated was pf1 not able to sleep due to the SOB. Patient stated did Neb tx BID yesterday. Patient denies any pain. Coronavirus screen: Vaccine status: Patient reports receiving the 2nd dose of the covid vaccine. 3 doses of Moderna Client denies travel out of the [place] in the last 14 days. At this time, the client does not indicate any symptoms associated with coronavirus-19. Coronavirus screen: Client presents with at least one sign or symptom that may indicate coronavirus-19. Ebola Screen: Patient negative for fever greater than or equal to 101.5 degrees Fahrenheit, and additional compatible Ebola Virus Disease symptoms. Initial Sepsis Screen: Does the patient meet any 2 criteria? No. Patient's initial sepsis screen is negative. Does the patient have a suspected source of infection? No. Patient's initial sepsis screen is negative. Risk Assessment: Do you want to hurt yourself or someone else? Patient reports no desire to harm self or others. 03:29 Method Of Arrival: Wheelchair pf1 03:29 Acuity: TYSON 3 pf1 Historical: - Allergies: 03:34 Augmentin; pf1 03:34 Cipro; pf1 03:34 Keppra; pf1 - PMHx: 03:34 Anxiety; Atrial Fib; CHF; Diabetes - IDDM; High Cholesterol; Hypertension; Kidney pf1 failure stage 4; Low HR; Myocardial infarction; neuropathy; Seizures; - PSHx: 03:34 Appendectomy; Hemorrhoidectomy; Pacemaker-Defib; pf1 - Immunization history:: Adult Immunizations up to date, Last tetanus immunization: < 10 years ago Pneumococcal vaccine is up to date, Flu vaccine is up to date. - Social history:: Smoking status: Patient denies any tobacco usage or history of. Patient/guardian denies using alcohol, street drugs. - Family history:: not pertinent. Screenin:06 [facility] ED Fall Risk Assessment (Adult) History of falling in the last 3 months, lg3 including since admission No falls in past 3 months (0 pts). Abuse screen: Denies threats or abuse. Denies injuries from another. Nutritional screening: No deficits noted. Tuberculosis screening: No symptoms or risk factors identified. Assessment: 04:06 General: Appears in no apparent distress. comfortable, Behavior is calm, cooperative. lg3 Pain: Denies pain. Neuro: No deficits noted. Geller Agitation-Sedation Scale (RASS): 0 - Alert and Calm Level of Consciousness is awake, alert, obeys commands, Oriented to person, place, time, situation. Cardiovascular: No deficits noted. Reports shortness of breath, Capillary refill < 3 seconds Clubbing of nail beds is absent JVD is absent Patient's skin is warm and dry. Rhythm is A-V sequential pacer. Respiratory: Reports shortness of breath at rest on exertion Airway is patent Respiratory effort is even, unlabored, Respiratory pattern is regular, symmetrical, Breath sounds are clear bilaterally. GI: No deficits noted. No signs and/or symptoms were reported involving the gastrointestinal system. Abdomen is round non-distended, obese. : No deficits noted. No signs and/or symptoms were reported regarding the genitourinary system. EENT: No deficits noted. No signs and/or symptoms were reported regarding the EENT system. Derm: No deficits noted. No signs and/or symptoms reported regarding the dermatologic system. Skin is intact, is thin, Skin is dry, Skin is normal, Skin temperature is warm. Musculoskeletal: No deficits noted. No signs and/or symptoms reported regarding the musculoskeletal system. Circulation, motion, and sensation intact. Range of motion: intact in all extremities. 05:36 Reassessment: Patient appears in no apparent distress at this time. Patient and/or jb4 family updated on plan of care and expected duration. Pain level reassessed. Patient is alert, oriented x 3, equal unlabored respirations, skin warm/dry/pink. 06:27 Reassessment: Patient appears in no apparent distress at this time. Patient and/or jb4 family updated on plan of care and expected duration. Pain level reassessed. Patient is alert, oriented x 3, equal unlabored respirations, skin warm/dry/pink. 07:10 Reassessment: Patient appears in no apparent distress at this time. Patient and/or db family updated on plan of care and expected duration. Pain level reassessed. Patient is alert, oriented x 3, equal unlabored respirations, skin warm/dry/pink. PATIENT TO RESTROOM VIA WHEELCHAIR. 08:00 Reassessment: Patient appears in no apparent distress at this time. Patient and/or db family updated on plan of care and expected duration. Pain level reassessed. Patient is alert, oriented x 3, equal unlabored respirations, skin warm/dry/pink. 09:00 Reassessment: Patient appears in no apparent distress at this time. Patient and/or db family updated on plan of care and expected duration. Pain level reassessed. Patient is alert, oriented x 3, equal unlabored respirations, skin warm/dry/pink. 09:06 Reassessment: attempt to call report, no answer after 2 min. iw 09:11 Reassessment: attempt to call report, no answer after 2 min. iw 09:15 Reassessment: attempt to call report, Joshua is in a pt room, will call back. iw 09:33 Reassessment: attempt to call report, call went to voice mail. iw 09:50 Reassessment: report given by WM Perez. iw Vital Signs: 03:29 BP 121 / 70; Pulse 87; Resp 18; Temp 97.6; Pulse Ox 97% on R/A; Weight 78.47 kg; Height pf1 5 ft. 0 in. ; Pain 0/10; 05:36 BP 124 / 69; Pulse 90; Resp 18; Pulse Ox 93% ; jb4 06:27 BP 125 / 73; Pulse 90; Resp 23; Pulse Ox 93% on R/A; jb4 07:31 BP 110 / 61; Pulse 90; Resp 16; Pulse Ox 93% ; ko1 07:35 BP 116 / 64; Pulse 90; Resp 16; Pulse Ox 93% on R/A; db 09:22 BP 119 / 73; Pulse 88; Resp 18; Pulse Ox 93% on R/A; db 03:29 Body Mass Index 33.79 (78.47 kg, 152.4 cm) pf1 03:29 Pain Scale: Adult pf1 ED Course: 02:59 Patient arrived in ED. jj6 03:25 Jacky Casper MD is Attending Physician. sp4 03:34 Triage completed. pf1 03:37 Corry Estrada, RN is Primary Nurse. lg3 04:06 Patient has correct armband on for positive identification. Placed in gown. Bed in low lg3 position. Call light in reach. Side rails up X 1. Client placed on continuous cardiac and pulse oximetry monitoring. NIBP monitoring applied. satellite project site monitor on. Door closed. Noise minimized. Warm blanket given. Family accompanied patient. 04:06 Inserted saline lock: 20 gauge in right antecubital area, using aseptic technique. lg3 Blood collected. Patient maintains SpO2 saturation greater than 95% on room air. 04:11 BMP Sent. lg3 04:11 CBC with Diff Sent. lg3 04:11 CPK Sent. lg3 04:11 D-Dimer Sent. lg3 04:11 Hepatic Function Sent. lg3 04:11 Lipase Sent. lg3 04:11 Magnesium Sent. lg3 04:11 NT PRO-BNP Sent. lg3 04:11 PT-INR Sent. lg3 04:11 Ptt, Activated Sent. lg3 04:11 Troponin HS Sent. lg3 06:12 Mina Peralta is Hospitalizing Provider. sp4 06:16 Chest Single View XRAY In Process Unspecified. EDMS 06:17 Hospitalizing Provider role handed off by Mina Peralta sp4 06:17 Sylvie Fritz MD is Hospitalizing Provider. sp4 07:53 Resting quietly. Appears to be sleeping. db 08:00 Provided Education on: ADMISSION. db 08:00 No provider procedures requiring assistance completed. Patient admitted, IV remains in db place. 09:24 Arm band placed on Patient placed in an exam room. db Administered Medications: 04:21 Drug: Acetaminophen-Codeine PO (300 mg-30 mg) 2 tabs Route: PO; jb4 05:56 Follow up: Response: No adverse reaction lg3 04:21 Drug: Promethazine PO 25 mg Route: PO; jb4 05:56 Follow up: Response: No adverse reaction lg3 04:21 Drug: guaiFENesin PO Liquid 15 ml Route: PO; jb4 05:56 Follow up: Response: No adverse reaction lg3 04:22 Not Given (Other Intervention Used): Albuterol Inhalation 1.25 mg Inhalation once jb4 04:22 Drug: MethylPrednisoLONE IVP 125 mg Route: IVP; Site: right antecubital; jb4 05:56 Follow up: Response: No adverse reaction lg3 04:22 Drug: diphenhydrAMINE PO 25 mg Route: PO; jb4 05:56 Follow up: Response: No adverse reaction lg3 04:22 Drug: Albuterol Inhalation 2.5 mg Route: Inhalation; jb4 05:56 Follow up: Response: No adverse reaction lg3 06:27 Drug: Furosemide IVP 40 mg Route: IVP; Site: right antecubital; jb4 09:24 Follow up: Response: No adverse reaction db Medication: 08:00 VIS not applicable for this client. db Outcome: 06:13 Decision to Hospitalize by Provider. sp4 08:00 Admitted to ER Hold. [facility]. db 08:00 Condition: stable 08:00 Instructed on the need for admit. 09:59 Patient left the ED. ko1 Signatures: Dispatcher [employer] EDCeci Ahumada RN RN iw Bryson, James RN RN jb4 Corry Estrada RN RN lg3 Pratima Perez jj6 Ana Montesinos RN RN ko1 Judy Leigh RN RN Katiuska Robins RN RN pf1 Jacky Casper MD MD sp4 Corrections: (The following items were deleted from the chart) 09:08 09:06 Reassessment: attempt to call report [facility] 09:08 09:06 Reassessment: attempt to call report, no answer [facility] 09:13 09:11 Reassessment: attempt to call report [facility]
[2022-09-27] MEDS ORDERED: FUROSEMIDE 40 MG/4 ML VIAL ONE (06:26)
[2022-09-27] MEDS ORDERED: ONDANSETRON 4 MG/2 ML VIAL IV PRN (07:51)
[2022-09-27] MEDS ORDERED: ACETAMINOPHEN 500 MG TAB PO PRN (07:51)
[2022-09-27] MEDS ORDERED: ENOXAPARIN 30 MG/0.3 ML SQ SCH (09:00)
[2022-09-27] MEDS: POTASSIUM 25 MEQ EFFERV TAB PO SCH (10:11)
[2022-09-27] MEDS: METOPROLOL TAR 25 MG TAB PO SCH ×2 (10:12→21:31)
[2022-09-27] MEDS: ASPIRIN EC 81 MG TAB PO SCH (10:12)
[2022-09-27] MEDS: FUROSEMIDE 40 MG/4 ML VIAL IV SCH ×2 (10:13→17:26)
[2022-09-27] MEDS ORDERED: GLUCAGON 1 MG/VIAL IM PRN (13:42)
[2022-09-27] MEDS ORDERED: D50W 25 GM/50 ML SYRINGE IV PRN (13:42)
[2022-09-27] MEDS ORDERED: D10W 125 ML IV PRN (13:48)
[2022-09-27] MEDS: PHENYTOIN ER 100 MG CAP PO SCH ×3 (13:52→22:29)
--- NOTE | 2022-09-27 13:56 | RAD REPORT ---
EXAM DESCRIPTION: RAD - Chest Single View - 09/27/2022 6:14 am CLINICAL HISTORY: 77 years Female, CHEST PAIN COMPARISON: 09/16/2022 FINDINGS: Prominence of the cardiomediastinal silhouette and central vasculature with bilateral inte rstitial opacities. No pneumothorax or pleural effusion. Pacer ICD is stable in positioning. No acute osseous abnormality. IMPRESSION: Cardiomegaly with mild edema. Underlying infectious process not completely excluded. Electronically signed by: Won Cronin MD 09/27/2022 6:42 AM CDT Due to temporary technical issues with the PACS/Fluency reporting system, reports are being signed by the in house radiologist without review as a courtesy to ensure prompt reporting. The interpreting r adiologist is fully responsible for the content of the report.
[2022-09-27] MEDS ORDERED: METOPROLOL XL 50 MG TAB PO SCH (18:00)
--- NOTE | 2022-09-27 18:07 | EKG ---
Test Date: 2022-09-27 Test Time: 03:43:39 Assessment Consultant: CARLOS MEASUREMENT RESULTS: Intervals: Rate: 89 LA: 100 QRSD: 160 QT: 474 QTc: 576 [place]: P: 78 LA: 100 QRS: -63 T: 112 INTERPRETIVE STATEMENTS: AV sequential or dual chamber electronic pacemaker Compared to ECG 09/16/2022 03:29:32 Ventricular-paced complex(es) or rhythm no longer present Electronically Signed On 09-27-22 18:06:10 CDT by Armond Moore
[2022-09-27] MEDS: NPH (HUMAN) 100 UNITS/ML INSULIN SQ SCH (21:00)
[2022-09-27] MEDS: SACUBITRIL/VALSARTAN 24/26 MG TAB PO SCH (21:29)
[2022-09-27] MEDS: APIXABAN 2.5 MG TABLET PO SCH (21:32)
[2022-09-27] MEDS: ATORVASTATIN 40 MG TAB PO SCH (21:32)
--- NOTE | 2022-09-27 22:05 | CON ---
Date of Consultation: 09/27/2022 Reason For Consultation: Heart failure exacerbation. History Of Present Illness: A 77-year-old female who was recently in the hospital. She comes in [facility] ause she is having shortness of breath, orthopnea, and lower extremity edema for about 2 days prior t o arrival to the emergency room. Denies having any chest pain. Denies having any nausea, vomiting, or diaphoresis. No dysuria, polyuria, or fever. Past Medical History: Consistent of atrial fibrillation, diabetes, hypertension, dyslipidemia, conge stive heart failure with low ejection fraction, defibrillator in place, and pacemaker in place. Medications: Refer reconciliation sheet for detailed list. Allergies: AMOXICILLIN, CIPROFLOXACIN, AUGMENTIN. Family History: No premature coronary artery disease or cancer. Social History: She does not smoke or drink. Does not use any drugs. Review of Systems: All systems reviewed were negative except for mentioned in HPI. Physical Examination: Vital Signs: Temperature is 97.2, pulse 89, breathing 16, blood pressure 117/69, saturating 96% on r oom air. General: Pleasant middle-aged female, in no apparent distress. Head and Neck: Pupils are equal, reactive to light. Intact eye movements. Mild JVD elevation. Lungs: Crackles in both bases. No accessory muscle use or muscle retraction. Heart: Regular. No extra sounds. Abdomen: Soft, nontender. Bowel sounds positive. No organomegaly. No masses or hernia. No rigidi ty or rebound. Extremities: Positive edema bilaterally. No clubbing, cyanosis. Intact pulses. Skin: No rash. Neurologic: Alert, awake, oriented x3. No acute focal deficits appreciated. Investigations: BUN is 89, creatinine 2.06. Troponin 22 and NT-proBNP 16,849. Assessment And Recommendations: 1.Acute on chronic congestive heart failure exacerbation and as per echo done in March, her eject ion fraction is 25% to 30%. She appears to be fluid overloaded and acute congestive heart failure ex acerbation. Agree with IV Lasix. Carefully monitor BUN, creatinine, and electrolytes. 2.Acute on chronic renal failure. Recommend Nephrology evaluation. Diuresis as above. Carefully m onitor electrolytes, BUN, creatinine. 3.Atrial fibrillation, rate is controlled on Eliquis. To continue current management. SR/MODL Voice ID: [id number] Report ID: [id number]
[2022-09-27] MEDS ORDERED: INSULIN -REGULAR HUMAN 50 UNIT/0.5 ML ML SQ ONE (22:30)
[2022-09-28 04:39] LABS: Absolute Lymphocytes (CBC) 1.6 K/uL (0.7-4.9); Hematocrit 28.7 % (36.0-45.0); Lymphocytes % 24.1 % (15.3-44.8); MCV 94.6 fL (80-100); MPV 10.7 fL (7.6-11.3); Platelets 187 thou/uL (152-406); RBC Red Blood Cell Count 3.03 M/uL (3.86-4.86)
[2022-09-28 05:21] LABS: Albumin 2.8 g/dL (3.4-5.0); Bilirubin Total 0.2 mg/dL (0.2-1.0); Magnesium 2.8 mg/dL (1.6-2.4); Phosphorus 4.4 mg/dL (2.5-4.9); Potassium 4.1 mEq/L (3.5-5.1); Protein, Total 7.1 g/dL (6.4-8.2)
[2022-09-28] MEDS: ASPIRIN EC 81 MG TAB PO SCH (08:15)
[2022-09-28] MEDS: POTASSIUM 25 MEQ EFFERV TAB PO SCH (08:15)
[2022-09-28] MEDS: PHENYTOIN ER 100 MG CAP PO SCH ×3 (08:15→22:06)
[2022-09-28] MEDS: APIXABAN 2.5 MG TABLET PO SCH ×2 (08:15→22:04)
[2022-09-28] MEDS: METOPROLOL TAR 25 MG TAB PO SCH ×2 (08:17→22:02)
[2022-09-28] MEDS: INSULIN -REGULAR HUMAN 50 UNIT/0.5 ML ML SQ SCH ×4 (08:24→21:00)
[2022-09-28] MEDS: FUROSEMIDE 40 MG/4 ML VIAL IV SCH (08:26)
[2022-09-28] MEDS ORDERED: FUROSEMIDE 40 MG TABLET PO SCH (09:00)
[2022-09-28] MEDS: NPH (HUMAN) 100 UNITS/ML INSULIN SQ SCH ×2 (09:37→21:00)
[2022-09-28] MEDS: ALBUMIN HUMAN 25% 12.5 GM, FUROSEMIDE 100 MG in NA CHLORIDE 0.9% 40 ML IV SCH ×2 (14:10→23:21)
--- NOTE | 2022-09-28 14:45 | PN ---
Date of Progress Note: 09/28/2022 Subjective: Seen by bedside, clinically improving, on diuresis, much less short of breath. Review of Systems: No chest pain, shortness of breath, orthopnea, or cough. No nausea, vomiting, diarrhea. All other s ystems reviewed are negative. Objective: Vital Signs: Reviewed. Head and Neck: Pupils are equal, reactive to light. Intact eye movements. No JVD. No cervical lym phadenopathy. Neck is supple. Thyroid is not enlarged. Lungs: Clear to auscultation bilaterally. No rhonchi, wheezing, or crackles. No accessory muscle u se. Heart: Irregular. No extra sounds. Abdomen: Soft, nontender. Bowel sounds positive. No organomegaly. No masses or hernia. No rigidi ty or rebound. Extremities: No clubbing, cyanosis. Intact pulses. Skin: No rashes. Neurologic: Alert, awake. No acute focal deficits appreciated. Investigations: BUN is 94 and creatinine is 2.2. Hemoglobin is 9.5. Assessment/recommendations: 1.Acute on chronic systolic heart failure exacerbation. She is feeling much better with diuresis. However, her BUN and creatinine have increased, so I will stop the Lasix and will consult Nephrology, see below. 2.Acute on chronic renal failure. BUN is very high. Consult Nephrology. 3.Atrial fibrillation, controlled. Continue current management including Eliquis. SR/MODL Voice ID: [id number] Report ID: [id number]
--- NOTE | 2022-09-28 14:45 | CON ---
Date of Consultation: 09/28/2022 Reason For Consultation: Elevated BUN and creatinine, fluid management. History Of Present Illness: This is a pleasant 77-year-old female, well known to me from previous [place] [facility] with significant past medical history of chronic kidney disease stage 4, baseline creatinine of 2 and GFR of 20, CAD, diabetes, congestive heart failure, seizure, the patient came to the [facility] with shortness of breath, increased in her swelling. The patient increased her Lasix to 80 mg, but her symptoms did not resolve, swelling continued to worsening and started having shortness of breath . For that reason, reported to the hospital. The patient denied fever or chills. The patient was s tarted on diuresis and because of the low blood pressure, diuresis has been held. Past Medical History: Includes; 1.Hypertension. 2.Hyperlipidemia. 3.Diabetes complicated with neuropathy and nephropathy, CAD complicated with congestive heart failur e, ejection fraction of 30%, AFib, chronic kidney disease stage 4, baseline creatinine 2, GFR of 20, secondary to diabetes nephropathy and cardiorenal syndrome. 4.Seizure. 5.AFib. 6.Hyperlipidemia. Past Surgical History: Includes; 1.ICD placement. 2.Exploratory laparotomy. 3.Appendectomy. 4.Hemorrhoidectomy. Family History: Positive for hypertension, CAD, and diabetes. Social History: Denied smoking, denied drinking, denied drugs abuse. Review of Systems: Head and Neck: No red eye. No ear pain. GI: No nausea. Has increased abdominal girth. : No polyuria. No dysuria. No hematuria. [employer]: No vaginal discharge. Endocrine: No polydipsia. Skin: No rash. Neuro: Has neuropathy. Musculoskeletal: Generalized weakness. Cardio: Has orthopnea. Has leg swelling. Respiratory: Has shortness of breath. Physical Examination: Vital Signs: When I saw the patient; blood pressure 98/57, pulse of 89, afebrile. Chest: Crackles bilateral. Heart: S1, S2. Systolic murmur. Abdomen: Soft, nontender. Extremities: +2 edema. Neurologic: Alert. No focality. Laboratory Data: Hemoglobin 9.5. Sodium 137, potassium 4.1, bicarb 28, BUN 94, creatinine 2.2, GFR of 20, calcium 8.1, magnesium 2.8. Current Medications: The patient on include Entresto, metoprolol 25 b.i.d., atorvastatin, Dilantin, insulin, aspirin, and Eliquis. Assessment And Plan: 1.Chronic kidney disease stage 4 with acute kidney injury secondary to cardiorenal. I am going to s tart the patient on Lasix drip and we will monitor the patient closely. We will start at 10 mg per h our to avoid any low blood pressure and we will follow up. We will monitor the patient closely. 2.Acute kidney injury secondary to cardiorenal as above. I do not see the need for ultrasound as re cently was done. 3.Hypertension, currently blood pressure on the lower side. We will try to utilize blood pressure f or more diuresis, continue low-dose of current blood pressure medications, and we will monitor. 4.Congestive heart failure with exacerbation. Start the patient on Lasix drip to avoid any low bloo d pressure with Lasix bolus and we will follow up. 5.Diabetes as by primary. 6.Hyponatremia, dilutional. We will optimize the fluid status with diuresis. Thank you, Dr. Fritz for allowing us to participate in the care of your patient. IFEANYI Voice ID: [id number] Report ID: [id number]
[2022-09-28] MEDS: SACUBITRIL/VALSARTAN 24/26 MG TAB PO SCH (22:03)
[2022-09-28] MEDS: ATORVASTATIN 40 MG TAB PO SCH (22:03)
[2022-09-29] MEDS ORDERED: ZOLPIDEM TARTRATE 5 MG TABLET PO PRN (00:45)
[2022-09-29 01:40] LABS: UR PROTEIN 8.7 mg/dL (<11.9); Urine Protein/Creatinine Ratio 0.38 ratio (<0.15)
[2022-09-29 03:45] LABS: Albumin 3.1 g/dL (3.4-5.0); Phosphorus 4.2 mg/dL (2.5-4.9); Potassium 4.2 mEq/L (3.5-5.1); Uric Acid 6.9 mg/dL (2.6-6.0)
[2022-09-29] MEDS: ALBUMIN HUMAN 25% 12.5 GM, FUROSEMIDE 100 MG in NA CHLORIDE 0.9% 40 ML IV SCH ×5 (05:00→08:55)
[2022-09-29 05:02] VITALS: O2SAT 96
[2022-09-29] MEDS: INSULIN -REGULAR HUMAN 50 UNIT/0.5 ML ML SQ SCH ×2 (07:30→12:20)
[2022-09-29] MEDS: NPH (HUMAN) 100 UNITS/ML INSULIN SQ SCH (08:00)
[2022-09-29] MEDS: POTASSIUM 25 MEQ EFFERV TAB PO SCH (08:48)
[2022-09-29] MEDS: ASPIRIN EC 81 MG TAB PO SCH (08:48)
[2022-09-29] MEDS: APIXABAN 2.5 MG TABLET PO SCH (08:48)
[2022-09-29] MEDS: METOPROLOL TAR 25 MG TAB PO SCH (08:51)
[2022-09-29] MEDS ORDERED: PHENYTOIN ER 100 MG CAP PO SCH (09:00)
[2022-09-29 10:27] VITALS: BMI 33.4
[2022-09-29 14:53] VITALS: BP 105/65; TEMP 97.3
--- NOTE | 2022-09-29 14:56 | P.PN ---
Subjective Date of Service: 09/29/22 Physical Examination - Vital Signs Temperature: 97.3 F Blood Pressure: 105/65 Pulse: 90 Respirations: 16 Pulse Ox (%): 93 Assessment And Plan - Plan 1. Chronic kidney disease stage 4 with acute kidney injury secondary to cardiorenal. I am going to start the patient on Lasix drip and we will monitor the patient closely. We will start at 10 mg per hour to avoid any low blood pressure and we will follow up. We will monitor the patient closely. 2. Acute kidney injury secondary to cardiorenal as above. I do not see the need for ultrasound as recently was done. 3. Hypertension, currently blood pressure on the lower side. We will try to utilize blood pressure for more diuresis, continue low-dose of current blood pressure medications, and we will monitor. 4. Congestive heart failure with exacerbation. Start the patient on Lasix drip to avoid any low blood pressure with Lasix bolus and we will follow up. 5. Diabetes as by primary. 6. Hyponatremia, dilutional. We will optimize the fluid status with diuresis.
== END 2022-09-29 15:00 | disposition home or self-care (01) | DRG 291 ==
LOC: ER 02:58 → ERHOLD 07:51 → 2ND 09:24
PROVIDERS: ADMIT Hospitalist; ATTEND Hospitalist
DX: I13.0 Hypertensive heart and chronic kidney disease with heart failure and stage 1 through stage 4 chronic kidney disease, or unspecified chronic kidney disease (principal); I50.23 Acute on chronic systolic (congestive) heart failure; E87.1 Hypo-osmolality and hyponatremia; N18.4 Chronic kidney disease, stage 4 (severe); N17.9 Acute kidney failure, unspecified; E11.22 Type 2 diabetes mellitus with diabetic chronic kidney disease; E11.40 Type 2 diabetes mellitus with diabetic neuropathy, unspecified; I48.91 Unspecified atrial fibrillation; E78.00 Pure hypercholesterolemia, unspecified; I25.10 Atherosclerotic heart disease of native coronary artery without angina pectoris; I25.2 Old myocardial infarction; Z79.4 Long term (current) use of insulin; Z88.1 Allergy status to other antibiotic agents; Z88.8 Allergy status to other drugs, medicaments and biological substances; Z79.01 Long term (current) use of anticoagulants; Z90.49 Acquired absence of other specified parts of digestive tract; Z79.899 Other long term (current) drug therapy; Z95.810 Presence of automatic (implantable) cardiac defibrillator
CPT/HCPCS: 36415; 71045; 80048; 80053; 80069; 80076; 82550; 82570; 82947; 83690; 83735; 83880; 84100; 84156; 84484; 84550; 85025; 85379; 85610; 85730; 93005; 96374; 96375; 99285; J1650; J1815; J1940; J2930; J7613; P9047; Q0169

== ENCOUNTER 2022-10-20 11:36 | Emergency (ER) | payer OTHER ==
--- OUTSIDE RECORDS SUMMARY | 2022-10-20 11:44 | XMS REPORT | Continuity of Care Document ---
:1945 Author Organization [facility] t Address [address] [place] [address] [address] [place] [address] Care Team Providers Name Role Phone CAMRON ARIAS Primary Care Physician Unavailable Elaine Lamb Attending Clinician Unavailable FAM CRAIG Attending Clinician Unavailable SILVERIO ADAM Attending Clinician Unavailable SRIRAM HEATH Attending Clinician Unavailable Kumar SQUIRES, Sriram Attending Clinician Doctor Unassigned, Becker Attending Clinician Unavailable 2, [facility] Attending [...] IBIKUNLE, FOLUSHO F Attending Clinician Unavailable Ibikunle BAT LATHE OPERATOR, Folusho F Attending Clinician Major SQUIRES, Clare Combs Attending Clinician CLARE GONSALVES Attending Clinician Unavailable Tommy BURK, Luis Alberto Attending Clinician Unavailable Mitchell Garcia MD Attending Clinician Po, [facility] Main Attending Clinician Unavailable Willian SQUIRES, Ortega Lester Attending Clinician [phone] ORTEGA DORSEY Attending Clinician Unavailable Cielo Bautista [...] GRAMM, SHANTEL A Attending Clinician Unavailable Gramm BAT LATHE OPERATOR, Shantel A Attending Clinician Sabina Barba MD Attending Clinician SABINA BARBA Attending Clinician Unavailable Ericka Chen Attending Clinician ERICKA ACKERMAN Attending Clinician Unavailable Lab, Ang - Db Attending Clinician Unavailable VIRI PRICE Attending Clinician Unavailable Lab, [facility] Fam Pob I Attending Clinician Unavailable Jose BAT LATHE OPERATOR, Karla Attending Clinician Dee BAT LATHE OPERATOR, Viri Martinez Attending Clinician Teri Samano RN Attending Clinician Unavailable ERICH PANTOJA Attending Clinician Unavailable Pacemaker/Icd, [facility] Attending Clinician Unavailable Omole BAT LATHE OPERATOR, Min Godinez Attending Clinician [phone] OMOLE, MIN GRETCHEN Attending Clinician Unavailable Nita Degroot DO Attending Clinician NITA DEGROOT Attending Clinician Unavailable NITA DEGROOT Attending Clinician Unavailable Provider, [facility] Attending Clinician Unavailable Anedevante BAT LATHE OPERATOR, Monica Attending Clinician MONICA MCCORMICK Attending Clinician Unavailable Calli BURK, Jo More Attending Clinician Unavailable Kirt Thomason DO Attending Clinician Gab Servin MD Attending Clinician GAB SERVIN Attending Clinician Unavailable Cielo Henry RN Attending Clinician Fam Craig MD Attending Clinician [phone] Edgar Cortés MD Attending Clinician [phone] EDGAR CORTÉS Attending Clinician Unavailable Lubna Lal MD Attending Clinician LUBNA LAL Attending Clinician Unavailable , [facility] Echo Room 1 - Attending Clinician Unavailable Visit, [facility] Nurse Attending Clinician Unavailable Dago Gross MDHKaren Attending Clinician Pc, [facility] Vascular Room 1 - Attending Clinician Unavailable ALEXUS RAMOS Attending Clinician Unavailable ALEXUS RAMOS Attending Clinician Unavailable DAGO GROSSHKaren Attending Clinician Unavailable EVAN MARTIN Attending Clinician Unavailable EKATERINA BOUDREAUX Attending Clinician Unavailable Nate BAT LATHE OPERATOR, Madeleine Strauss Attending Clinician Emily Lezama Attending Clinician [facility], Adc Heart Failure Cardio Attending [...] Effective Date Expiration Date Lucy toribio BLAKE/SANDRA [id number] 2019 MEDICARE ADVANTAGE 00:00:00 [employer] CHOICE [id number] 2022 00:00:00 Problems Condition Condition Condition Status Onset Resolution Last Treating Co mments Source Name Details Category Date Date Treatment Clinician Date Pulmonary Pulmonary Disease Active 2021-02 Uni vers hypertensi hypertensi 2-31 it y of on on 00:00: [address] Branch Presence Presence Disease Active 2021-02 Unive rs of cardiac of cardiac 2-30 it [place] of resynchron [place]ynchron [place] ization [place] 00 Medical therapy therapy Branch defibrilla defibrilla 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) (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-D) SOB SOB Disease Active 2021-02 Univers (shortness (shortness 2-29 it y of of breath) of breath) [place]: [place] 00 [place] Atrial Atrial Disease Active Univers tachycardi tachycardi 2-25 it y of a a 00:00: [address] Branch Dizziness Dizziness Disease Active Uni [...] Added automatic ally from request for surgery [id number] Refusal of Refusal of Disease Active 2020-02 U nivers blood blood 2-13 ity of transfusio transfusio 00:00: [place] as ns as 00 Medical patient is patient is Br anch Jehovah's Jain Witness Osteopenia Osteopenia Disease Active 2020-02 U parseh 1-09 ity of 00:00: [place] 00 Medical [...] rs LFTs LFTs 5- ity of 00:00: [place] [facility] Multiple Multiple Disease Active Overview: [...] colon 5-03 ity of polyps polyps 00:00: [address] Branch History of History of Disease Active U nivers pulmonary pulmonary 2-17 ity of embolism embolism 00:00: [place] [facility] Branch ICD ICD Disease Active Univers (implantab (implantab 2-17 it y of le le 00:00: [place] cardiovert cardiovert 00 Me dical er-defibri er-defibri Br anch llator) in llator) in place place Atrial Atrial Disease Active Univers fibrillati fibrillati 1-16 it y of on on 00:00: [address] Branch Syncope Syncope Disease Active Univers 1-15 ity of 00:00: [place] [facility] Branch DM DM Disease Active Univers (diabetes (diabetes 8-31 ity of mellitus), mellitus), 00:[place] type 2 type 2 00 Medical with renal with renal Br anch complicati complicati ons ons Anxiety Anxiety Disease Active Univers ity of [facility] [place] [facility] CKD CKD Disease Active Univers (chronic (chronic ity of kidney kidney [place] disease) disease) Medica l stage 4, stage 4, Branch GFR 15-29 GFR 15-29 ml/min ml/min Epilepsy Epilepsy Disease Active Unive rs ity of [facility] [place] [facility] Esophageal Esophageal Disease Active U nivers reflux reflux ity of [facility] [place] [facility] HLD HLD Disease Active Univers (hyperlipi (hyperlipi it y of demia) demia) [facility] [place] [facility] HTN HTN Disease Active Univers (hypertens (hypertens it y of ion) ion) [place] [facility] Non-ischem Non-ischem Disease Active U [...] tobacco Passive smoker Un iversity of use [place] [facility] History SDOH University o f Alcohol Std Drinks [place] [facility] History SDOH University o f Alcohol Binge [place] [facility] al [facility] History SDOH Social Unive rsity of Connections [facility] Med ical Together Branch History SDOH Social Unive rsity of Connections [facility] Medical Branch History SDOH Social Unive rsity of Connections [place] [facility] Membership Branch History SDOH Social Unive rsity of [facility] Medical Meetings Branch Exposure to 2022-03-12 2022-03-22 Not sure University of SARS-CoV-2 (event) 00:00:00 07:50:00 [facility] Branch Alcohol intake 2022-03-14 2022-03-14 Current University of 00:00:00 00:00:00 non-drinker of [facility] alcohol Branch (finding) History SDOH 2022-02-17 2022-02-17 1 University o f Alcohol Frequency 00:00:00 00:00:00 [facility] edical Branch History SDOH Social 2022-02-17 2022-02-17 5 Unive rsity of Connections Phone 00:00:00 00:00:00 [facility] edical Branch History SDNJ Social 2022-02-17 2022-02-17 98 Unive rsity of Connections Living 00:00:00 00:00:00 [place] [facility] History SDOH 2022-02-17 2022-02-17 7 University o f Physical Activity 00:00:00 00:00:00 [facility] edical DPW Branch History SDNJ 2022-02-17 2022-02-17 1 University o f Physical Activity 00:00:00 00:00:00 [place] M edical MPS Branch History SDNJ 2022-02-17 2022-02-17 5 University o f Financial 00:00:00 00:00:00 [place] [facility] History SDOH Food 2022-02-17 2022-02-17 1 Univers ity of Worry 00:00:00 00:00:00 [place] [facility] History SDOH Food 2022-02-17 2022-02-17 1 Univers ity of Scarcity 00:00:00 00:00:00 [place] [facility] History SDNJ 2022-02-17 2022-02-17 2 University o f Transport Med 00:00:00 00:00:00 [place] Medic al Branch History [facility] 2022-02-17 2022-02-17 2 University o f Transport Non-Med 00:00:00 00:00:00 [facility] edical Branch Tobacco use and 2022-02-16 2022-02-16 Smokeless Universit y of exposure 00:00:00 00:00:00 tobacco non-user [facility] dical Branch Tobacco Comment 2022-02-16 2022-02-16 exposed to "a Univer sity of 00:00:00 00:00:00 lot" of passive [place] Med ical smoke from Branch Sex [birth year] Universit y of 00:00:00 00:00:00 [facility] [place] [facility] Smoking Status Start Date Stop Date Source Never smoked tobacco [facility] Medications Ordered Filled Start Stop Current Ordering Indication Dosage Frequency Signature Comments Components Source Medication Medication Date Date Medication? Clinician (SIG) Name Name metoprolol Yes [id number] 50mg Take 1 Univers succinate 2-07 tablet by ity o f XL 50 mg 24 00:00: mouth 2 [place] hr tablet 00 (two) Medical times Branch daily. amiodarone Yes [id number] 200mg Take 1 Univers 200 mg 1-26 tablet by ity of tablet 00:00: mouth [place] 00 daily. Medical Branch amiodarone Yes [id number] 200mg Take 1 Univers 200 mg 1-26 tablet by ity of tablet 00:00: mouth [place] 00 daily. Medical Branch amiodarone Yes [id number] 200mg Take 1 Univers 200 mg 1-26 tablet by ity of tablet 00:00: mouth [place] 00 daily. Medical Branch amiodarone Yes [id number] 200mg Take 1 Univers 200 mg 1-26 tablet by ity of tablet 00:00: mouth [place] 00 daily. Medical Branch amiodarone Yes [id number] 200mg Take 1 Univers 200 mg 1-26 [...] at 6am and 6pm furosemide 2022- Yes [id number] 40mg Take 1 Univers 40 mg 1-10 tablet by ity of tablet 00:00: mouth [place] 00 every Medical morning Branch and evening. metoprolol Yes [id number] 50mg Take 1 Univers succinate 1-10 tablet by ity o f XL 50 mg 24 00:00: mouth 2 [place] hr tablet 00 (two) Medical times Branch daily. apixaban Yes 1358 2.5mg Take 1 Univer s (ELIQUIS) 1-10 tablet by ity o f 2.5 mg 00:00: mouth 2 [place] tablet 00 (two) Medical times Branch daily. Indication s: atrial fibrillati on furosemide Yes [id number] 40mg Take 1 Univers 40 mg 1-10 tablet by ity of tablet 00:00: mouth [place] 00 every Medical morning Branch and evening. metoprolol 2022-0 Yes [id number] 50mg Take 1 Univers succinate 1-10 tablet [...] s: atrial fibrillati on furosemide 0 Yes [id number] 40mg Take 1 Univers 40 mg 1-10 tablet by ity of tablet 00:00: mouth [place] 00 every Medical morning Branch and evening. metoprolol 2022-0 Yes [id number] 50mg Take 1 Univers succinate 1-10 tablet [...] s: atrial fibrillati on furosemide 0 Yes [id number] 40mg Take 1 Univers 40 mg 1-10 tablet by ity of tablet 00:00: mouth [place] 00 every Medical morning Branch and evening. metoprolol 2022-0 Yes [id number] 50mg Take 1 Univers succinate 1-10 tablet [...] s: atrial fibrillati on furosemide 2022-0 Yes [id number] 40mg Take 1 Univers 40 mg 1-10 tablet by ity of tablet 00:00: mouth [place] 00 every Medical morning Branch and evening. metoprolol 2022-0 Yes [id number] 50mg Take 1 Univers succinate 1-10 tablet [...] s: atrial fibrillati on furosemide 2022-0 Yes [id number] 40mg Take 1 Univers 40 mg 1-10 tablet by ity of tablet 00:00: mouth [place] 00 every Medical morning Branch and evening. metoprolol 2022-0 Yes [id number] 50mg Take 1 Univers succinate 1-10 tablet [...] s: atrial fibrillati on furosemide 2022-0 Yes [id number] 40mg Take 1 Univers 40 mg 1-10 tablet by ity of tablet 00:00: mouth [place] 00 every Medical morning Branch and evening. metoprolol 2022-0 Yes [id number] 50mg Take 1 Univers succinate 1-10 tablet [...] s: atrial fibrillati on furosemide 2022-0 Yes [id number] 40mg Take 1 Univers 40 mg 1-10 tablet by ity of tablet 00:00: mouth [place] 00 every Medical morning Branch and evening. apixaban 2022-0 Yes 1358 2.5mg Take 1 Univer s (ELIQUIS) 1-10 tablet by ity o f 2.5 mg 00:00: mouth 2 [place] tablet 00 (two) Medical times Branch daily. Indication s: atrial fibrillati on furosemide 2023-0 Yes [id number] 40mg Take 1 Univers 40 mg 1-10 tablet by ity of tablet 00:00: mouth [place] 00 every Medical morning Branch and evening. apixaban Yes 1358 2.5mg Take 1 Univer s (ELIQUIS) 1-10 tablet by ity o f 2.5 mg 00:00: mouth 2 [place] tablet 00 (two) Medical times Branch daily. Indication s: atrial fibrillati on metoprolol 202- No [id number] 50mg Take 1 Univers succinate 1-10 02-06 tablet by ity of XL 50 mg 24 00:00: 00:00 mouth 2 [place] hr tablet 00 :00 (two) Medical times Branch daily. insulin NPH Yes [id number] 20U inject 20 Univers 100 unit/mL 1-02 Units ity of injection 00:00: under the [place] 00 skin every Medical morning. Branch insulin NPH Yes [id number] 20U inject 20 Univers 100 unit/mL 1-02 Units ity of injection 00:00: under the [place] 00 skin every Medical morning. Branch insulin NPH Yes [id number] 20U inject 20 Univers 100 unit/mL 1-02 Units ity of injection 00:00: under the [place] 00 skin every Medical morning. Branch insulin NPH Yes [id number] 20U inject 20 Univers 100 unit/mL 1-02 Units ity of injection 00:00: under the [place] 00 skin every Medical morning. Branch insulin NPH Yes [id number] 20U inject 20 Univers 100 unit/mL 1-02 Units ity of injection 00:00: under the [place] 00 skin every Medical morning. Branch insulin NPH Yes [id number] 20U inject 20 Univers 100 unit/mL 1-02 Units ity of injection 00:00: under the [place] 00 skin every Medical morning. Branch insulin NPH Yes [id number] 20U inject 20 Univers 100 unit/mL 1-02 Units ity of injection 00:00: under the [place] 00 skin every Medical morning. Branch insulin NPH Yes [id number] 20U inject 20 Univers 100 unit/mL 1-02 Units ity of injection 00:00: under the [place] 00 skin every Medical morning. Branch insulin NPH 2022-0 Yes [id number] 20U inject 20 Univers 100 unit/mL 1-02 Units ity of injection 00:00: under the [place] 00 skin every Medical morning. Branch insulin NPH 2022-0 Yes [id number] 20U inject 20 Univers 100 unit/mL 1-02 Units ity of injection 00:00: under the [place] 00 skin every Medical morning. Branch insulin NPH 2022-0 Yes [id number] 20U inject 20 Univers 100 unit/mL 1-02 [...] 03:00: First dose [place] 00 on Sat [facility] 02/18/22 Branch at 2100, Until Discontinu ed, Routine insulin NPH 2022-0 Yes [id number] 15U inject 15 Univers 100 unit/mL 1-01 Units ity of injection 00:00: under the [place] 00 skin at Medical bedtime. Branch polyethylen 2022-0 Yes [id number] 17g Take 1 Univers e glycol 1- Packet by ity of 3350 17 00:00: mouth [place] gram powder 00 every 24 Medi sandra (twenty-fo Branch ur) hours as needed for Constipati on. insulin NPH 2022-0 Yes [id number] 15U inject 15 Univers 100 unit/mL 1-01 Units ity of injection 00:00: under the [place] 00 skin at Medical bedtime. Branch polyethylen 0 Yes [id number] 17g Take 1 Univers e glycol 1-01 Packet by ity of 3350 17 00:00: mouth [place] gram powder 00 every 24 Medi sandra (twenty-fo Branch ur) hours as needed for Constipati on. insulin NPH Yes [id number] 15U inject 15 Univers 100 unit/mL 1-01 Units ity of injection 00:00: under the [place] 00 skin at Medical bedtime. Branch polyethylen 0 Yes [id number] 17g Take 1 Univers e glycol 1-01 Packet by ity of 3350 17 00:00: mouth [place] gram powder 00 every 24 Medi sadnra (twenty-fo Branch ur) hours as needed for Constipati on. insulin NPH Yes [id number] 15U inject 15 Univers 100 unit/mL 1-01 Units ity of injection 00:00: under the [place] 00 skin at Medical bedtime. Branch polyethylen 0 Yes [id number] 17g Take 1 Univers e glycol 1-01 Packet by ity of 3350 17 00:00: mouth [place] gram powder 00 every 24 Medi sandra (twenty-fo Branch ur) hours as needed for Constipati on. insulin NPH Yes [id number] 15U inject 15 Univers 100 unit/mL 1-01 Units ity of injection 00:00: under the [place] 00 skin at Medical bedtime. Branch polyethylen 0 Yes [id number] 17g Take 1 Univers e glycol 1-01 Packet by ity of 3350 17 00:00: mouth [place] gram powder 00 every 24 Medi sandra (twenty-fo Branch ur) hours as needed for Constipati on. insulin NPH Yes [id number] 15U inject 15 Univers 100 unit/mL 1-01 Units ity of injection 00:00: under the [place] 00 skin at Medical bedtime. Branch polyethylen 0 Yes [id number] 17g Take 1 Univers e glycol 1-01 Packet by ity of 3350 17 00:00: mouth [place] gram powder 00 every 24 Medi sandra (twenty-fo Branch ur) hours as needed for Constipati on. insulin NPH Yes [id number] 15U inject 15 Univers 100 unit/mL 1-01 Units ity of injection 00:00: under the [place] 00 skin at Medical bedtime. Branch polyethylen 2022-0 Yes [id number] 17g Take 1 Univers e glycol 1-01 Packet by ity of 3350 17 00:00: mouth [place] gram powder 00 every 24 Medi sandra (twenty-fo Branch ur) hours as needed for Constipati on. insulin NPH 2022-0 Yes [id number] 15U inject 15 Univers 100 unit/mL 1-01 Units ity of injection 00:00: under the [place] 00 skin at Medical bedtime. Branch polyethylen 2022-0 Yes [id number] 17g Take 1 Univers e glycol 1-01 Packet by ity of 3350 17 00:00: mouth [place] gram powder 00 every 24 Medi sandra (twenty-fo Branch ur) hours as needed for Constipati on. insulin NPH 2022-0 Yes [id number] 15U inject 15 Univers 100 unit/mL 1-01 Units ity of injection 00:00: under the [place] 00 skin at Medical bedtime. Branch polyethylen 2022-0 Yes [id number] 17g Take 1 Univers e glycol 1-01 Packet by ity of 3350 17 00:00: mouth [place] gram powder 00 every 24 Medi sandra (twenty-fo Branch ur) hours as needed for Constipati on. insulin NPH 2022-0 Yes [id number] 15U inject 15 Univers 100 unit/mL 1-01 Units ity of injection 00:00: under the [place] 00 skin at Medical bedtime. Branch polyethylen 2022-0 Yes [id number] 17g Take 1 Univers e glycol 1-01 Packet by ity of 3350 17 00:00: mouth [place] gram powder 00 every 24 Medi sandra (twenty-fo Branch ur) hours as needed for Constipati on. insulin NPH 2022-0 Yes [id number] 15U inject 15 Univers 100 unit/mL 1-01 Units ity of injection 00:00: under the [place] 00 skin at Medical bedtime. Branch polyethylen 2022-0 Yes [id number] 17g Take 1 Univers e glycol 1-01 Packet by ity of 3350 17 00:00: mouth [place] gram powder 00 every 24 Medi sandra (twenty-fo Branch ur) hours as needed for Constipati on. furosemide 2022- No [id number] 40mg Take 1 Univers 40 mg 02-19 tablet by ity of tablet 00:00: 05:59 mouth [place] 00 :00 every Medical morning Branch and evening for 30 days. furosemide 2022- No [id number] 40mg Take 1 Univers 40 mg 02-19 tablet by ity of tablet 00:00: 05:59 mouth [place] 00 :00 every Medical morning Branch and evening for 30 days. furosemide 2022- No [id number] 40mg Take 1 Univers 40 mg 02-19 tablet by ity of tablet 00:00: 00:00 mouth [place] 00 :00 every Medical morning Branch and evening for 30 days. furosemide 2022- No [id number] 40mg Take 1 Univers 40 mg 02-19 [...] Until Discontinu ed, Routine sulfur 2021-02- No [id number] 5mL 5 mL, Un araseli hexafluorid 02-17 9103 Intravenou i ty of e microsphr 15:00: 15:00 s, ONCE, 1 [place] (LUMASON) 00 :00 dose, On Medica l injection 5 Sun Branch mL 02/17/22 at 0900, Routine
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 Restricted medication : KUMARSRIRAM polyethylen 2021-02 Yes 17g 17 g, Unive rs e glycol 2-30 Oral, ity of 3350 powder 05:09: [id number], [place] 17 g 36 Starting Medical on [place] Branch 02/16/22 at 2309, Until Discontinu ed, Routine, Constipati on phenytoin 2021-02 Yes 200mg 200 mg, Univ ers Extended 2-30 Oral, QHS, ity o f (DILANTIN 03:00: First [place] KAPSEAL) 00 on [facility] Medical capsule 200 02/16/22 Bran ch mg at 2100, Until Discontinu ed, Routine insulin NPH 2021-02 Yes 15U 15 Units, U nivers (HUMULIN N) 2-30 Subcutaneo it y of injection 03:00: [place], QHS, [place] 15 Units 00 First dose Medic al on [facility] Branch 02/16/22 at 2100, Until Discontinu ed, Routine atorvastati 2021-02 Yes 40mg 40 mg, Univ ers n (LIPITOR) 2-30 Oral, QHS, it y of tablet 40 03:00: First dose [place] mg 00 on [facility] 02/16/22 Branch at 2100, Until Discontinu ed, Routine levETIRAcet 2021-02 Yes 500mg 500 mg, Un araseli am (KEPPRA) 2-30 Oral, BID, it y of tablet 500 02:00: First dose [place] mg 00 on [facility] 02/16/22 Branch at 2000, Until Discontinu ed, Routine apixaban 2021-02 Yes 1358 5mg 5 mg, Univers (ELIQUIS) 2-30 Oral, BID, ity of tablet 5 mg 02:00: First dose [place] 00 on [facility] 02/16/22 Branch at 2000, Until Discontinu ed, Routine
Indicatio ns: Non-Valvul ar Atrial Fibrillati on furosemide 2021-02- No 40mg 40 mg, Univ ers (LASIX) 202-19 Slow IV ity of injection 02:00: 18:11 Push, [place] 40 mg 00 :42 Q12H, Medical First dose Branch on [facility] 02/16/22 at 2000, Until Discontinu ed, Routine metoprolol 2021-02- No 50mg 50 mg, Univ ers succinate 202-18 Oral, BID, ity of XL (TOPROL 02:00: 14:37 First dose [place] XL) tablet 00 :05 on [facility] Medical 50 mg 02/16/22 Branch at [...] Branch 02/16/22 at 1100, JACQUI semaglutide Yes [id number] .25mg inject Univers (OZEMPIC) 8-17 0.25 mg ity of 0.25 mg or 00:00: under the [place] 0.5 mg(2 00 skin Medical mg/1.5 mL) weekly. Branch PnIj semaglutide Yes [id number] .25mg inject Univers (OZEMPIC) 8-17 0.25 mg ity of 0.25 mg or 00:00: under the [place] 0.5 mg(2 00 skin Medical mg/1.5 mL) weekly. Branch PnIj semaglutide Yes [id number] .25mg inject Univers (OZEMPIC) 8-17 0.25 mg ity of 0.25 mg or 00:00: under the [place] 0.5 mg(2 00 skin Medical mg/1.5 mL) weekly. Branch PnIj semaglutide Yes [id number] .25mg inject Univers (OZEMPIC) 8-17 0.25 mg ity of 0.25 mg or 00:00: under the [place] 0.5 mg(2 00 skin Medical mg/1.5 mL) weekly. Branch PnIj semaglutide 0 Yes [id number] .25mg inject Univers (OZEMPIC) 8-17 0.25 mg ity of 0.25 mg or 00:00: under the [place] 0.5 mg(2 00 skin Medical mg/1.5 mL) weekly. Branch PnIj semaglutide 0 Yes [id number] .25mg inject Univers (OZEMPIC) 8-17 0.25 mg ity of 0.25 mg or 00:00: under the [place] 0.5 mg(2 00 skin Medical mg/1.5 mL) weekly. Branch PnIj semaglutide 0 Yes [id number] .25mg inject Univers (OZEMPIC) 8-17 0.25 mg ity of 0.25 mg or 00:00: under the [place] 0.5 mg(2 00 skin Medical mg/1.5 mL) weekly. Branch PnIj semaglutide Yes [id number] .25mg inject Univers (OZEMPIC) 8-17 0.25 mg ity of 0.25 mg or 00:00: under the [place] 0.5 mg(2 00 skin Medical mg/1.5 mL) weekly. Branch PnIj semaglutide Yes [id number] .25mg inject Univers (OZEMPIC) 8-17 0.25 mg ity of 0.25 mg or 00:00: under the [place] 0.5 mg(2 00 skin Medical mg/1.5 mL) weekly. Branch PnIj semaglutide Yes [id number] .25mg inject Univers (OZEMPIC) 8-17 0.25 mg ity of 0.25 mg or 00:00: under the [place] 0.5 mg(2 00 skin Medical mg/1.5 mL) weekly. Branch PnIj semaglutide 2021-0 Yes [id number] .25mg inject Univers (OZEMPIC) 8-17 0.25 mg ity of 0.25 mg or 00:00: under the [place] 0.5 mg(2 00 skin Medical mg/1.5 mL) weekly. Branch PnIj semaglutide Yes [id number] .25mg inject Univers (OZEMPIC) 8-17 0.25 mg ity of 0.25 mg or 00:00: under the [place] 0.5 mg(2 00 skin Medical mg/1.5 mL) weekly. Branch PnIj semaglutide 2021-0 Yes [id number] .25mg inject Univers (OZEMPIC) 8-17 0.25 mg ity of 0.25 mg or 00:00: under the [place] 0.5 mg(2 00 skin Medical mg/1.5 mL) weekly. Branch PnIj semaglutide 2021-0 Yes [id number] .25mg inject Univers (OZEMPIC) 8-17 0.25 mg [...] capsules in the evening. amLODIPine 2-0 Yes [id number] 10mg Take 1 U nivers 10 mg 6-13 tablet by ity of tablet 00:00: mouth [place] 00 daily. Medical Branch amLODIPine 2-0 Yes [id number] 10mg Take 1 U nivers 10 mg 6-13 tablet by ity of tablet 00:00: mouth [place] 00 daily. Medical Branch amLODIPine 2-0 Yes [id number] 10mg Take 1 U nivers 10 mg 6-13 tablet by ity of tablet 00:00: mouth [place] 00 daily. Medical Branch amLODIPine 2-0 Yes [id number] 10mg Take 1 U nivers 10 mg 6-13 tablet by ity of tablet 00:00: mouth [place] 00 daily. Medical Branch amLODIPine 2-0 Yes [id number] 10mg Take 1 U nivers 10 mg 6-13 tablet by ity of tablet 00:00: mouth [place] 00 daily. Medical Branch amLODIPine 2021-0 2022- No [id number] 10mg Take 1 Univers 10 mg 6-13 01-10 tablet by ity of tablet 00:00: 00:00 mouth [place] 00 :00 daily. Medical Branch amLODIPine 2021-0 2022- No [id number] 10mg Take 1 Univers 10 mg 6-13 [...] s: atrial fibrillati on OXCARBAZEPI 2-0 Yes [id number] TAKE 1 [facility] [place] 150 mg 3-08 TABLET 2 X ity of tablet 00:00: A DAY FOR [place] 00 1 WEEK Medical THEN 2 Branch TABS 2X DAY FOR 1 WEEK 3 TABLES 2XADAY OXCARBAZEPI 2022-0 Yes [id number] TAKE 1 [facility] [place] 150 mg 3-08 TABLET 2 X ity of tablet 00:00: A DAY FOR [place] 00 1 WEEK Medical THEN 2 Branch TABS 2X DAY FOR 1 WEEK 3 TABLES 2XADAY OXCARBAZEPI 2022-0 Yes [id number] TAKE 1 [facility] [place] 150 mg 3-08 TABLET 2 X ity of tablet 00:00: A DAY FOR [place] 00 1 WEEK Medical THEN 2 Branch TABS 2X DAY FOR 1 WEEK 3 TABLES 2XADAY OXCARBAZEPI 2022-0 Yes [id number] TAKE 1 [facility] [place] 150 mg 3-08 TABLET 2 X ity of tablet 00:00: A DAY FOR [place] 1 WEEK Medical THEN 2 Branch TABS 2X DAY FOR 1 WEEK 3 TABLES 2XADAY OXCARBAZEPI 2022-0 Yes [id number] TAKE 1 [facility] [place] 150 mg 3-08 TABLET 2 X ity of tablet 00:00: A DAY FOR [place] 1 WEEK Medical THEN 2 Branch TABS 2X DAY FOR 1 WEEK 3 TABLES 2XADAY OXCARBAZEPI 2022-0 Yes [id number] TAKE 1 [facility] [place] 150 mg 3-08 TABLET 2 X ity of tablet 00:00: A DAY FOR [place] 1 WEEK Medical THEN 2 Branch TABS 2X DAY FOR 1 WEEK 3 TABLES 2XADAY OXCARBAZEPI 2022-0 Yes [id number] TAKE 1 [facility] [place] 150 mg 3-08 TABLET 2 X ity of tablet 00:00: A DAY FOR [place] 00 1 WEEK Medical THEN 2 Branch TABS 2X DAY FOR 1 WEEK 3 TABLES 2XADAY OXCARBAZEPI 2022-0 Yes [id number] TAKE 1 [facility] [place] 150 mg 3-08 TABLET 2 X ity of tablet 00:00: A DAY FOR [place] 00 1 WEEK Medical THEN 2 Branch TABS 2X DAY FOR 1 WEEK 3 TABLES 2XADAY OXCARBAZEPI 2022-0 Yes [id number] TAKE 1 [facility] [place] 150 mg 3-08 TABLET 2 X ity of tablet 00:00: A DAY FOR [place] 00 1 WEEK Medical THEN 2 Branch TABS 2X DAY FOR 1 WEEK 3 TABLES 2XADAY OXCARBAZEPI 2022-0 Yes [id number] TAKE 1 [facility] [place] 150 mg 3-08 TABLET 2 X ity of tablet 00:00: A DAY FOR [place] 00 1 WEEK Medical THEN 2 Branch TABS 2X DAY FOR 1 WEEK 3 TABLES 2XADAY OXCARBAZEPI 2022-0 Yes [id number] TAKE 1 [facility] [place] 150 mg 3-08 TABLET 2 X ity of tablet 00:00: A DAY FOR [place] 1 WEEK Medical THEN 2 Branch TABS 2X DAY FOR 1 WEEK 3 TABLES 2XADAY OXCARBAZEPI 2022-0 Yes [id number] TAKE 1 [facility] [place] 150 mg 3-08 TABLET 2 X ity of tablet 00:00: A DAY FOR [place] 1 WEEK Medical THEN 2 Branch TABS 2X DAY FOR 1 WEEK 3 TABLES 2XADAY OXCARBAZEPI 2022-0 Yes [id number] TAKE 1 [facility] [place] 150 mg 3-08 TABLET 2 X ity of tablet 00:00: A DAY FOR [place] 1 WEEK Medical THEN 2 Branch TABS 2X DAY FOR 1 WEEK 3 TABLES 2XADAY OXCARBAZEPI 2022-0 Yes [id number] TAKE 1 [facility] [place] 150 mg 3-08 TABLET 2 X ity of tablet 00:00: A DAY FOR [place] 1 WEEK Medical THEN 2 Branch TABS [...] 6am and 6pm insulin NPH 0 Yes [id number] 10U inject Univers (NOVOLIN N 04-13 10-15 ity of NPH U-100 00:00: Units [place] INSULIN) 00 under the Medica l 100 unit/mL skin every Br anch injection evening. insulin NPH Yes [id number] 10U inject Univers (NOVOLIN N 04-13 10-15 ity of NPH U-100 00:00: Units [place] INSULIN) 00 under the Medica l 100 unit/mL skin every Br anch injection evening. insulin NPH Yes [id number] 10U inject Univers (NOVOLIN N 04-13 10-15 ity of NPH U-100 00:00: Units [place] INSULIN) 00 under the Medica l 100 unit/mL skin every Br anch injection evening. insulin NPH 2022- No [id number] 10U inject Univers (NOVOLIN N 04-13 10-15 ity of NPH U-100 00:00: 00:00 Units [place] INSULIN) 00 :00 under the Medica l 100 unit/mL skin every Br anch injection evening. furosemide 0 Yes [id number] 20mg Take 1 Univers 20 mg 1-27 tablet by ity of tablet 00:00: mouth 00 daily. Medical Branch levETIRAcet 2021-0 Yes [id number] 500mg Take 1 Univers am 500 mg 1-27 tablet by ity o f tablet 00:00: mouth 2 00 (two) Medical times Branch daily. furosemide 2021-0 Yes [id number] 20mg Take 1 [facility] 20 mg 1-27 tablet by ity of tablet 00:00: mouth [place] 00 daily. Medical Branch levETIRAcet 2021-0 Yes [id number] 500mg Take 1 Univers am 500 mg 1-27 tablet by ity o f tablet 00:00: mouth 2 [place] 00 (two) Medical times Branch daily. furosemide 2022-0 Yes [id number] 20mg Take 1 Univers 20 mg 1-27 tablet by ity of tablet 00:00: mouth 00 daily. Medical Branch levETIRAcet 2021-0 Yes [id number] 500mg Take 1 Univers am 500 mg 1-27 tablet by ity o f tablet 00:00: mouth (two) Medical times Branch daily. levETIRAcet 2021-0 Yes [id number] 500mg Take 1 Univers am 500 mg 1-27 tablet by ity o f tablet 00:00: mouth (two) Medical times Branch daily. levETIRAcet 2021-0 Yes [id number] 500mg Take 1 Univers am 500 mg 1-27 tablet by ity o f tablet 00:00: mouth (two) Medical times Branch daily. levETIRAcet 2021-0 Yes [id number] 500mg Take 1 Univers am 500 mg 1-27 tablet by ity o f tablet 00:00: mouth (two) Medical times Branch daily. levETIRAcet 2021-0 Yes [id number] 500mg Take 1 Univers am 500 mg 1-27 tablet by ity o f tablet 00:00: mouth (two) Medical times Branch daily. levETIRAcet 2021-0 Yes [id number] 500mg Take 1 Univers am 500 mg 1-27 tablet by ity o f tablet 00:00: mouth (two) Medical times Branch daily. levETIRAcet 2021-0 Yes [id number] 500mg Take 1 Univers am 500 mg 1-27 tablet by ity o f tablet 00:00: mouth (two) Medical times Branch daily. levETIRAcet 2021-0 Yes [id number] 500mg Take 1 Univers am 500 mg 1-27 tablet by ity o f tablet 00:00: mouth (two) Medical times Branch daily. levETIRAcet 2-0 Yes [id number] 500mg Take 1 Univers am 500 mg 1-27 tablet by ity o f tablet 00:00: mouth (two) Medical times Branch daily. levETIRAcet 2-0 Yes [id number] 500mg Take 1 Univers am 500 mg 1-27 tablet by ity o f tablet 00:00: mouth 2 [place] 00 (two) Medical times Branch daily. levETIRAcet 2021-0 Yes [id number] 500mg Take 1 [facility] am 500 mg 1-27 tablet by ity o f tablet 00:00: mouth (two) Medical times Branch daily. levETIRAcet 2021-0 Yes [id number] 500mg Take 1 [facility] am 500 mg 1-27 tablet by ity o f tablet 00:00: mouth 2 (two) Medical times Branch daily. furosemide 2021-0 3- No [id number] 20mg Take 1 Univers 20 mg 1-27 02-19 tablet by ity of tablet 00:00: 00:00 mouth [place] 00 :00 daily. Medical Branch pantoprazol 0 Yes [id number] 40mg Take 1 Univers e 40 mg EC 1-21 tablet by ity of tablet 00:00: mouth 00 daily. Medical Branch pantoprazol 0 Yes [id number] 40mg Take 1 Univers e 40 mg EC 1-21 tablet by ity of tablet 00:00: mouth 00 daily. Medical Branch pantoprazol 0 Yes [id number] 40mg Take 1 Univers e 40 mg EC 1-21 tablet by ity of tablet 00:00: mouth 00 daily. Medical Branch pantoprazol 2021-0 Yes [id number] 40mg Take 1 Univers e 40 mg EC 1-21 tablet by ity of tablet 00:00: mouth [place] 00 daily. Medical Branch pantoprazol 2021-0 Yes [id number] 40mg Take 1 Univers e 40 mg EC 1-21 tablet by ity of tablet 00:00: mouth 00 daily. Medical Branch pantoprazol 2021-0 Yes [id number] 40mg Take 1 Univers e 40 mg EC 1-21 tablet by ity of tablet 00:00: mouth [place] 00 daily. Medical Branch pantoprazol 2021-0 Yes [id number] 40mg Take 1 Univers e 40 mg EC 1-21 tablet by ity of tablet 00:00: mouth [place] 00 daily. Medical Branch pantoprazol 2021-0 Yes [id number] 40mg Take 1 Univers e 40 mg EC 1-21 tablet by ity of tablet 00:00: mouth [place] 00 daily. Medical Branch pantoprazol 2021-0 Yes [id number] 40mg Take 1 Univers e 40 mg EC 1-21 tablet by ity of tablet 00:00: mouth [place] 00 daily. Medical Branch pantoprazol Yes [id number] 40mg Take 1 Univers e 40 mg EC 1-21 tablet by ity of tablet 00:00: mouth [place] 00 daily. Medical Branch pantoprazol Yes [id number] 40mg Take 1 Univers e 40 mg EC 1-21 tablet by ity of tablet 00:00: mouth [place] 00 daily. Medical Branch pantoprazol Yes [id number] 40mg Take 1 Univers e 40 mg EC 1-21 tablet by ity of tablet 00:00: mouth [place] 00 daily. Medical Branch pantoprazol Yes [id number] 40mg Take 1 Univers e 40 mg EC 1-21 tablet by ity of tablet 00:00: mouth [place] 00 daily. Medical Branch pantoprazol Yes [id number] 40mg Take 1 Univers e 40 mg EC 1-21 tablet by ity of tablet 00:00: mouth [place] 00 daily. Medical Branch atorvastati 2020-02 Yes [id number] 40mg Take 1 Univers n 40 mg 2-14 tablet by ity of tablet 00:00: mouth at [place] 00 bedtime. Medical Branch insulin 2020-02 Yes 8U inject 8 Univer s regular 2-14 Units ity of human 00:00: under the [place] (NOVOLIN R 00 skin Medical REGULAR daily. Branch U-100 Daily at [facility]) 100 noon unit/mL injection atorvastati 2020-02 Yes [id number] 40mg Take 1 Univers n 40 mg 2-14 tablet by ity of tablet 00:00: mouth at [place] 00 bedtime. Medical Branch insulin 2020-02 Yes 8U inject 8 Univer s regular 2-14 Units ity of human 00:00: under the [place] (NOVOLIN R 00 skin Medical REGULAR daily. Branch U-100 Daily at [facility]) 100 noon unit/mL injection atorvastati 2020-02 Yes [id number] 40mg Take 1 Univers n 40 mg 2-14 tablet by ity of tablet 00:00: mouth at [place] 00 bedtime. Medical Branch insulin 2020-02 Yes 8U inject 8 Univer s regular 2-14 Units ity of human 00:00: under the [place] (NOVOLIN R 00 skin Medical REGULAR daily. Branch U-100 Daily at [facility]) 100 noon unit/mL injection atorvastati 2020-02 Yes [id number] 40mg Take 1 Univers n 40 mg 2-14 tablet by ity of tablet 00:00: mouth at [place] [address] bedtime. Medical Branch atorvastati 2020-02 Yes [id number] 40mg Take 1 Univers n 40 mg 2-14 tablet by ity of tablet 00:00: mouth at [place] [address] bedtime. Medical Branch atorvastati 2020-02 Yes [id number] 40mg Take 1 Univers n 40 mg 2-14 tablet by ity of tablet 00:00: mouth at [place] [address] bedtime. Medical Branch atorvastati 2020-02 Yes [id number] 40mg Take 1 Univers n 40 mg 2-14 tablet by ity of tablet 00:00: mouth at [place] [address] bedtime. Medical Branch atorvastati 2020-02 Yes [id number] 40mg Take 1 Univers n 40 mg 2-14 tablet by ity of tablet 00:00: mouth at [place] [address] bedtime. Medical Branch atorvastati 2020-02 Yes [id number] 40mg Take 1 Univers n 40 mg 2-14 tablet by ity of tablet 00:00: mouth at [place] [address] bedtime. Medical Branch atorvastati 2020-02 Yes [id number] 40mg Take 1 Univers n 40 mg 2-14 tablet by ity of tablet 00:00: mouth at [place] [address] bedtime. Medical Branch atorvastati 2020-02 Yes [id number] 40mg Take 1 Univers n 40 mg 2-14 tablet by ity of tablet 00:00: mouth at [place] [address] bedtime. Medical Branch atorvastati 2020-02 Yes [id number] 40mg Take 1 Univers n 40 mg 2-14 tablet by ity of tablet 00:00: mouth at [place] [address] bedtime. Medical Branch atorvastati 2020-02 Yes [id number] 40mg Take 1 Univers n 40 mg 2-14 tablet by ity of tablet 00:00: mouth at [place] [address] bedtime. Medical Branch atorvastati 2020-02 Yes [id number] 40mg Take 1 Univers n 40 mg 2-14 tablet by ity of tablet 00:00: mouth at [place] [address] bedtime. Medical Branch insulin 2020-023- No 8U inject 8 Unive rs regular 2-14 02-19 Units ity of human 00:00: 00:00 under the [place] (NOVOLIN R 00 :00 skin Medical REGULAR daily. Branch U-100 Daily at [facility]) 100 noon unit/mL injection Blood-Gluco [...] 2020-12-03 Completed University o f Polysaccharide, 00:00:00 [place] Med ical PPSV23 (PNEUMOVAX) Branch Influenza Virus [...] Completed Universit y of Conjugate, PCV13 00:00:00 [facility] dical (Prevnar 13) Branch Pneumococcal 13 2019-12-19 Completed Universit y of Conjugate, PCV13 00:00:00 [facility] dical (Prevnar 13) Branch Pneumococcal 13 2019-12-19 Completed Universit y of Conjugate, PCV13 00:00:00 [facility] dical (Prevnar 13) Branch Pneumococcal 13 2019-12-19 Completed Universit y of Conjugate, PCV13 00:00:00 [facility] dical (Prevnar 13) Branch Pneumococcal 13 2019-12-19 Completed Universit y of Conjugate, PCV13 00:00:00 [facility] dical (Prevnar 13) Branch Pneumococcal 13 2019-12-19 Completed Universit y of Conjugate, PCV13 00:00:00 [facility] dical (Prevnar 13) Branch Pneumococcal 13 [...] Universit y of Conjugate, PCV13 00:00:00 [place] Mi dical (Prevnar 13) Branch Pneumococcal 13 2019-12-19 Completed Universit y of Conjugate, PCV13 00:00:00 [facility] dical (Prevnar 13) Branch Pneumococcal 13 2019-12-19 Completed Universit y of Conjugate, PCV13 00:00:00 [facility] dical (Prevnar 13) Branch Influenza Virus [...] Dosage 2018-03-25 Completed Unive rsity of 00:00:00 [place] [facility] HEP B, Adult Dosage 2018-03-25 Completed Unive rsity of 00:00:00 [facility] Branch HEP B, Adult Dosage 2018-03-25 Completed Unive rsity of 00:00:00 [facility] Branch HEP B, Adult Dosage 2018-03-25 Completed Unive rsity of 00:00:00 [place] [facility] HEP B, Adult Dosage 2018-03-25 Completed Unive rsity of 00:00:00 [place] [facility] HEP B, Adult Dosage 2018-03-25 Completed Unive rsity of 00:00:00 [place] [facility] HEP B, Adult Dosage 2018-03-25 Completed Unive rsity of 00:00:00 [place] [facility] HEP B, Adult Dosage 2018-03-25 Completed Unive rsity of 00:00:00 [facility] Branch HEP B, Adult Dosage 2018-03-25 Completed Unive rsity of 00:00:00 [place] [facility] HEP B, Adult Dosage 2018-03-25 [...] Dosage 2017-09-05 Completed Unive rsity of 00:00:00 [place] [facility] HEP B, Adult Dosage 2017-09-05 Completed Unive rsity of 00:00:00 [place] [facility] HEP B, Adult Dosage 2017-09-05 Completed Unive rsity of 00:00:00 [place] [facility] HEP B, Adult Dosage 2017-09-05 Completed Unive rsity of 00:00:00 [place] [facility] HEP B, Adult Dosage 2017-09-05 Completed Unive rsity of 00:00:00 [place] [facility] HEP B, Adult Dosage 2017-09-05 Completed Unive rsity of 00:00:00 [place] [facility] HEP B, Adult Dosage 2017-09-05 Completed Unive rsity of 00:00:00 [place] [facility] HEP B, Adult Dosage 2017-09-05 Completed Unive rsity of 00:00:00 [place] [facility] HEP B, Adult Dosage 2017-09-05 Completed Unive rsity of 00:00:00 [place] [facility] HEP B, Adult Dosage 2017-09-05 Completed Unive rsity of 00:00:00 [place] [facility] HEP B, Adult Dosage 2017-09-05 Completed Unive rsity of 00:00:00 [place] [facility] HEP B, Adult Dosage 2017-09-05 Completed Unive rsity of 00:00:00 [facility] [place] [facility] Pneumococcal 13 2015-02-19 Completed Universit y [...] ical PPSV23 (PNEUMOVAX) Branch Pneumococcal 2011-02-19 Completed [place] o f Polysaccharide, 00:00:00 [place] Med ical PPSV23 (PNEUMOVAX) Branch Pneumococcal 2011-02-19 Completed [place] o f Polysaccharide, 00:00:00 [place] Med ical PPSV23 (PNEUMOVAX) Branch Vital Signs Vital Name Observation Time Observation Value Comments Source Systolic blood 2022-03-16 14:28:00 128 mm[Hg] Univer sity of pressure [facility] [place] [facility] Diastolic blood 2022-03-16 14:28:00 70 mm[Hg] Unive rsity of [facility] Heart rate 2022-03-16 14:28:00 93 /min [facility] Body temperature 2022-03-16 14:28:00 35.67 Lizz [facility] 2022-03-16 14:28:00 17 /min [facility] Body weight 2022-03-16 14:28:00 81.058 kg [facility] BMI 2022-03-16 14:28:00 34.90 kg/m2 [facility] Oxygen saturation in 2022-03-16 14:28:00 98 /min [facility] Arterial blood by [facility] Pulse oximetry Branch Systolic blood 2022-03-14 19:37:00 138 mm[Hg] Univer sity of pressure [facility] [place] [facility] Diastolic blood 2022-03-14 19:37:00 87 mm[Hg] Unive rsity of pressure [facility] [place] [facility] Heart rate 2022-03-14 19:37:00 94 /min [facility] Respiratory rate 2022-03-14 19:37:00 20 /min [facility] Body height 2022-03-14 19:37:00 152.4 cm [facility] Body weight 2022-03-14 19:37:00 80.74 kg [facility] BMI 2022-03-14 19:37:00 34.76 kg/m2 [facility] ty [facility] [place] [facility] Oxygen saturation in 2022-03-14 19:37:00 99 /min University of Arterial blood by [facility] Pulse oximetry Branch Systolic blood 2022-02-28 14:57:00 130 mm[Hg] Univer sity of pressure [place] [facility] Diastolic blood 2022-02-28 14:57:00 83 mm[Hg] Unive rsity of pressure [place] [facility] Heart rate 2022-02-28 14:57:00 117 /min [facility]i [facility] [place] [facility] Respiratory rate 2022-02-28 14:57:00 20 /min Univ ersity of [place] [facility] Body height 2022-02-28 14:57:00 152.4 cm [facility]i ty [facility] [place] [facility] Body weight 2022-02-28 14:57:00 80.377 kg [facility] [place] [facility] BMI 2022-02-28 14:57:00 34.61 kg/m2 [facility]i [facility] [place] [facility] Oxygen saturation in 2022-02-28 14:57:00 99 /min University of Arterial blood by [facility] Pulse oximetry Branch Systolic blood 2022-02-19 17:58:00 140 mm[Hg] Univer sity of pressure [place] [facility] Diastolic blood 2022-02-19 17:58:00 95 mm[Hg] Unive rsity of pressure [place] [facility] Heart rate 2022-02-19 17:58:00 115 /min [facility]i ty [facility] [place] [facility] Body temperature 2022-02-19 13:46:00 36.78 Lizz Univ ersity of [place] [facility] Respiratory rate 2022-02-19 13:46:00 18 /min Univ ersity of [place] [facility] Oxygen saturation in 2022-02-19 13:46:00 94 /min University of Arterial blood by [facility] Pulse oximetry Branch Body weight 2022-02-18 10:44:00 83.462 kg [facility]i [facility] [place] [facility] BMI 2022-02-18 10:44:00 35.94 kg/m2 [facility] [place] [facility] Systolic blood 2022-02-16 16:07:00 116 mm[Hg] Univer sity of pressure [place] [facility] Diastolic blood 2022-02-16 16:07:00 71 mm[Hg] Unive rsity of pressure [place] [facility] Heart rate 2022-02-16 16:07:00 85 /min [facility] Body temperature 2022-02-16 16:07:00 36.89 Lizz [facility] Respiratory rate 2022-02-16 16:07:00 17 /min [facility] Body weight 2022-02-16 16:07:00 84.823 kg [facility] BMI 2022-02-16 16:07:00 36.52 kg/m2 [facility] Oxygen saturation in 2022-02-16 16:07:00 96 /min [facility] Arterial blood by [facility] Pulse oximetry [place] Systolic blood 2021-10-05 15:13:00 152 mm[Hg] Univer sity [facility] Diastolic blood 2021-10-05 15:13:00 77 mm[Hg] Unive [facility] Body height 2021-10-05 15:12:00 152.4 cm [facility] Body weight 2021-10-05 15:12:00 88.315 kg [facility] BMI 2021-10-05 15:12:00 38.02 kg/m2 [facility] Procedures Procedure Date / Time Performing Clinician Source Performed AUTHORIZATION FOR RELEASE 2022-03-23 06:01:00 Doctor Unassigned, [facility] FLU 2022-03-16 14:43:42 Kia [facility] VACC([id number]),65+YR,0.5 Medica l Branch ML,IM,ADJUVANTED,QUAD(FLU AD) POCT GLUCOSE (AUTOMATED) 2022-02-19 17:59:00 Brii Samson [facility] XR CHEST 2 VW 2022-02-19 16:23:57 Sriram Heath [facility] POCT GLUCOSE (AUTOMATED) 2022-02-19 13:45:00 Brii Samson [facility] MAGNESIUM 2022-02-19 12:23:00 Rocael Vaughan [facility] BASIC METABOLIC PANEL 2022-02-19 12:23:00 Rocael Vaughan [facility] (NA, K, CL, CO2, GLUCOSE, Medica l Branch BUN, CREATININE, CA) CBC WITH DIFF 2022-02-19 12:23:00 Rocael Vaughan [facility] N-TERMINAL PRO-BNP 2022-02-19 12:23:00 Rocael Vaughan [facility] POCT GLUCOSE (AUTOMATED) 2022-02-19 07:07:00 Brii Samson [facility] POCT GLUCOSE (AUTOMATED) 2022-02-19 06:10:00 OvMarcie youngi [facility] POCT GLUCOSE (AUTOMATED) 2022-02-19 03:34:00 OvBrii young [facility] POCT GLUCOSE (AUTOMATED) 2022-02-18 23:14:00 Brii Samson [facility] POCT GLUCOSE (AUTOMATED) 2022-02-18 17:29:00 Brii Samson [facility] POCT GLUCOSE (AUTOMATED) 2022-02-18 13:40:00 Marcie Samsoni [facility] BASIC METABOLIC PANEL 2022-02-18 10:53:00 Rocael Vaughan [facility] (NA, K, CL, CO2, GLUCOSE, Medica l Branch BUN, CREATININE, CA) LIPID PANEL ([id number])(TOTAL 2022-02-18 10:53:00 [facility], Medical Branch TRIGLYCERIDES, HDL) CBC WITH DIFF 2022-02-18 10:53:00 Rocael Vaughan [facility] N-TERMINAL PRO-BNP 2022-02-18 10:53:00 Rocael Vaughan [facility] POCT GLUCOSE (AUTOMATED) 2022-02-18 02:34:00 Brii Samson [facility] POCT GLUCOSE (AUTOMATED) 2022-02-17 22:16:00 Marcie Samsoni [facility] POCT GLUCOSE (AUTOMATED) 2022-02-17 17:45:00 OvBrii young [facility] POCT GLUCOSE (AUTOMATED) 2022-02-17 14:01:00 [facility] 2022-02-17 13:56:00 Chapin [facility] COMPLETE W/ CONTRAST Medical Bra nch MAGNESIUM 2022-02-17 09:47:00 Chapin [facility] BASIC METABOLIC PANEL 2022-02-17 09:47:00 Chapin [facility] (NA, K, CL, CO2, GLUCOSE, Medica l Branch BUN, CREATININE, CA) N-TERMINAL PRO-BNP 2022-02-17 09:47:00 Chapin [facility] POCT GLUCOSE (AUTOMATED) 2022-02-17 03:55:00 Chapin [facility] POCT GLUCOSE (AUTOMATED) 2022-02-17 03:16:00 Chapin [facility] URINALYSIS 2022-02-16 18:07:00 Bird [facility] XR CHEST 1 VW 2022-02-16 17:06:49 Bird [facility] LIPASE 2022-02-16 16:59:00 Bird [facility] TROPONIN I 2022-02-16 16:59:00 Bird [facility] HEPATIC FUNCTION PANEL 2022-02-16 16:59:00 Bird [facility] ([id number]) (ALB,T.PRO,BILI [facility] Branch T,BU/BC,ALT,AST,ALK PHOS) BASIC METABOLIC PANEL 2022-02-16 16:59:00 Bird [facility] (NA, K, CL, CO2, GLUCOSE, Medica l Branch BUN, CREATININE, CA) CBC WITH DIFF 2022-02-16 16:59:00 Bird [facility] GLYCOSYLATED HEMOGLOBIN 2022-02-16 16:59:00 Chapin [facility] (A1C) [facility] N-TERMINAL PRO-BNP 2022-02-16 16:59:00 Marina Pang [facility] of [facility] [place] [facility] COVID-19 (ID NOW RAPID 2022-02-16 16:59:00 Marina Pang [facility] TESTING) Medical Branch LAB ONLY COVID 2022-02-16 16:59:00 Marina Pang [place] [facility] [place] INTERPRETATION [facility] HB ECG ROUTINE & RHYTHM 2022-02-16 16:52:36 Marina Pang [facility] CONSENT/REFUSAL FOR 2022-02-16 16:40:37 Doctor Unassigned, [facility] DIAGNOSIS AND TREATMENT [facility] POCT HEMOGLOBIN A1C TEST 2021-10-05 15:15:00 Amita Gomez [facility] Encounters Start End Encounter Admission Attending Care Care Encounter Source Date/Time Date/Time Type Type Clinicians Facility Department ID 2022-06-14 Outpatient Lamb, STLMLC [facility] [id number] Common 12:46:01 Elaine [id number] [facility] 2022-06-02 [facility] [id number] Common 14:48:01 Elaine [id number] [facility] 2020-12-17 Emergency [facility] [id number] Univers 21:39:43 [facility] 2020-12-17 Inpatient [facility] [id number] Univers 18:26:55 alvino BARAKAT [facility] [place] [facility] 2020-12-17 Emergency [facility] [id number] Univers 16:06:19 [facility] 2022-06-15 2022-06-15 Outpatient Moustapha ADAM [facility] [id number] Univers 09:00:00 09:00:00 SILVERIO [facility] 2022-04-27 2022-04-27 Outpatient Moustapha HEATH [facility] [id number] Univers 10:20:00 10:20:00 SRIRAM grove [facility] [place] [facility] 2022-03-27 2022-03-27 Refill Kumar [facility] [id number] Univers 00:00:00 00:00:00 Qiachaim PALOMO [id number] ity of [facility] [id number] [place] [id number] Mi dical NAL 059 [facility] 2022-03-23 2022-03-23 Orders Doctor YANA [id number] Univers 00:00:00 00:00:00 Only Unassigned, CARLOS [id number] ity of [facility] [id number] Bernabe as [phone] [address] 2022-03-22 2022-03-22 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, 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 [facility] 1.2.840.114 [id number] Univers 08:00:00 08:15:00 Visit Silverio Adam 350.1.13.10 ity of [facility] [place] [phone] Mi dical NAL 353 [facility] 2022-03-22 2022-03-22 Outpatient [facility] [id number] Univers 08:00:00 08:00:00 SILVERIO ity of [facility] 2022-03-16 2022-03-16 Outpatient R [facility] [id number] Univers 08:40:00 09:58:33 SILVERIO ity [facility] 2022-03-16 2022-03-16 Office [facility] 1.2.840.114 [id number] Univers 08:40:00 09:00:00 Visit Silverio PALOMO 350.1.13.10 i ty of [facility] 4.2.[place] [phone] Mi dical NAL 059 [facility] 2022-03-14 2022-03-14 Office [facility] 1.2.840.114 [id number] Univers 13:40:00 14:00:00 Visit Sriram PALOMO 350.1.13.10 ity of [facility] 4.[place] [id number] Mi dical NAL 059 [facility] 2022-03-142022-03-14 Outpatient R KUMAR, [facility] [id number] Univers 13:40:00 13:40:00 SRIRAM de oliveira o f [facility] 2022-03-09 2022-03-09 Outpatient R KIA, [facility] [id number] Univers 09:59:09 23:59:00 SILVERIO ity of [facility] 2022-02-28 2022-02-28 Outpatient R KUMAR, [facility] [id number] Univers 09:00:00 09:16:53 SRIRAM de oliveira o f [facility] 2022-02-28 2022-02-28 Office [facility] 1.2.840.114 [id number] Univers 09:00:00 09:16:53 Visit Sriram PALOM[place] 350.1.13.10 ity of [place] [phone] [facility] [address] [facility] 2022-02-21 2022-02-21 Transition JONO Galvan 1.2.840.114 [id number] Univers 00:00:00 00:00:00 of Care Nara MG 350.1.13.10 it y of [place].2.7.2.[place] [phone] [facility] [address] 2022-02-16 2022-02-19 Inpatient X CHAPIN [facility] SAMI [id number] Univers 10:48:00 16:07:00 BRII ity of [facility] 2022-02-16 2022-02-19 [facility] Stephen PangeLeilani [facility] 1.2.840.11 [id number] Univers 10:48:00 16:07:00 Encounter Marcie Samsonkhadar PAL[place] 350.1.13.10 it[place] of [place] [phone] [facility] [address] 2022-02-16 2022-02-16 Fang Govea [facility] 1.2.840.114 [id number] Univers 09:45:00 10:05:00 Care Unknown, Attending HEALTH 350.1.13.10 [place]y of [place] 4.2.7.2.686 Bernabe as HUMPHREY?BLEA [phone] [facility] [address] [place] MEDICAL OFFICE BUILDING 2022-02-16 2022-02-16 Outpatient R CASSI [facility] [id number] Univers 09:45:00 09:45:00 FANG de oliveira [facility] 2022-01-31 2022-01-31 Outpatient R KUMAR, [facility] [id number] Univers 14:20:00 14:20:00 SRIRAM grove [facility] 2022-01-31 2022-01-31 Outpatient R KUMAR, [facility] [id number] Univers 14:20:00 14:20:00 SRIRAM de oliveira o maine [facility] 2021-12-02 2021-12-02 Outpatient R KIA [facility] [id number] Univers 10:20:00 10:20:00 [facility] 2021-11-25 2021-11-25 Outpatient R KIA [facility] [id number] Univers 10:20:00 10:20:00 [facility] 2021-11-25 2021-11-25 Outpatient R KIA [facility] [id number] Univers 10:20:00 10:20:00 [facility] 2021-10-05 2021-10-05 Outpatient R AMITA GOMEZ [facility] [id number] Univers 10:30:00 11:22:11 AMITA GOMEZ [facility] 2021-10-05 2021-10-05 Office Amita Gomez [facility] 1.2.840.114 [id number] Univers 10:30:00 11:22:11 Visit HEALTH 350.1.13.10 it y of [place] 4.2.7.2.686 Bernabe as HUMPHREY?BLEA [id number] [facility] [address] [place] MEDICAL OFFICE BUILDING 2021-09-21 2021-09-21 Telephone [facility] 1.2.907.352 [id number] Univers 00:00:00 00:00:00 Wentong HEALTH 350.1.13.10 it y of [place] 4.2.7.2.686 Bernabe as HUMPHREY?BLEA [id number] Mi dical KNEY [address] [place] MEDICAL OFFICE BUILDING 2021-08-19 2021-08-19 Outpatient R SEWANI, [facility] [id number] Univers 11:20:00 11:20:00 SILVERIO [facility] 2021-08-16 2021-08-16 Outpatient R CASTLE, [facility] [id number] Univers 13:00:00 13:00:00 WENTONG [facility] 2021-08-01 2021-08-01 Office Kumar, [facility] 1.2.840.114 [id number] Univers 13:40:00 14:02:37 Visit Sriram [place] 350.1.13.10 ity jarek [place] [id number] [address] 2021-08-01 2021-08-01 Outpatient R KUMAR, [facility] [id number] Univers 13:40:00 14:02:37 QIACHAIM ity o [facility] 2021-08-01 2021-08-01 Outpatient R KUMAR, [facility] [id number] Univers 13:40:00 13:40:00 QIANGJUN ity o [facility] 2021-08-01 2021-08-01 Outpatient R KUMAR, [facility] [id number] Univers 13:40:00 13:40:00 QIANGJUN ity o [facility] 2021-08-01 2021-08-01 Outpatient R KUMAR, [facility] [id number] Univers 13:40:00 13:40:00 QIANGJUN ity o [facility] 2021-08-01 2021-08-01 Outpatient R KUMAR, [facility] [id number] Univers 13:40:00 13:40:00 QIANGJUN ity o [facility] 2021-07-22 2021-07-22 Refill Kumar, [facility] 1.2.840.114 [id number] Univers 00:00:00 00:00:00 Sriram [place] 350.1.13.10 ity jarek [place] [id number] Mi dic[address] 2021-06-24 2021-06-24 Outpatient R KIA [facility] [id number] Univers 10:00:00 10:46:29 [facility] 2021-06-24 2021-06-24 Office [facility] 1.2.840.114 [id number] Univers 10:00:00 10:20:00 Visit Silverio PALOMO 350.1.13.10 i ty of [place] 4.2.7.2.686 Bernabelauryn CALIXTOMANUELA [phone] [address] 2021-06-24 2021-06-24 Outpatient R KIA [facility] [id number] Univers 10:00:00 10:00:00 [facility] 2021-06-24 2021-06-24 Outpatient [facility] [id number] Univers 10:00:00 10:00:00 [facility] 2021-06-10 2021-06-10 Outpatient R KIA [facility] [id number] Univers 10:46:49 23:59:00 [facility] 2021-05-23 2021-05-23 Outpatient R KUMAR, [facility] [id number] Univers 15:00:00 15:00:00 SRIRAM diamond [facility] 2021-05-04 2021-05-04 Outpatient R KUMAR, [facility] [id number] Univers 08:00:00 23:59:00 SRIRAM de oliveira o [facility] 2021-05-04 2021-05-04 Outpatient R KUMAR, [facility] [id number] Univers 08:00:00 08:00:00 SRIRAM de oliveira o [facility] 2021-04-28 2021-04-28 Outpatient R BROOKS [facility] [id number] Univers 13:00:00 14:03:10 DIANN [facility] 2021-04-28 2021-04-28 Office [facility] .2.581.961 [id number] Univers 13:00:00 14:03:10 Visit Diann DEWEY 350.1.13.10 i ty [facility] 4.2.7.2.[place] [facility] [phone] Mi dical NAL [address] [facility] 2021-04-22 2021-04-22 Outpatient Moustapha TRIMBLEShweta MITCHELL [facility] [id number] Univers 15:40:00 15:40:00 MITCHELL GARCIA kelsie [facility] 2021-04-22 2021-04-22 Outpatient Moustapha JOSEMITCHELL Rock [facility] [id number] Univers 15:40:00 15:40:00 MITCHELL GARCIA kelsie [facility] 2021-04-22 2021-04-22 Outpatient Moustapha JOSEMITCHELL Rock [facility] [id number] Univers 15:40:00 15:40:00 MITCHELL GARCIA [facility] 2021-04-18 2021-04-19 Emergency X [facility] ERT [id number] Univers 22:42:00 02:27:00 BERNIEUSHO ity [facility] 2021-04-18 2021-04-19 Emergency [facility] 1.2.840.114 [id number] Univers 22:42:00 02:27:00 Celia PALOMO 350.1.13.10 ity [facility] [address] [phone] [facility] [address] [place] 2021-04-18 2021-04-19 [facility] [id number] Univers 22:42:00 02:27:00 FOLUSHO ity [facility] 2021-04-18 2021-04-18 Orders Doctor MILLAN 1.2.840.114 [id number] Univers 00:00:00 00:00:00 Only Unassigned, CARLOS 350.1.13.10 ity of [place] [facility] 4.2.7.2.686 Bernabe as [phone] [facility] [address] [place] 2021-04-15 2021-04-15 [facility] 1.2.912.743 [id number] Univers 12:42:22 23:59:00 Encounter Clare PALOMO 350.1.13.10 ity of [place].7.[address] [id number] [facility] [address] 2021-04-15 2021-04-15 Outpatient R KUMAR [facility] [id number] Univers 10:00:00 10:33:44 SRIRAM ity o f [facility] 2021-04-15 2021-04-15 Office Kumar, [facility] 1.2.840.114 [id number] Univers 10:00:00 10:33:44 Visit Sriram [place] 350.1.13.10 ity [facility] 4.2.7.2.686 [place] [facility] [phone] Mi dical NAL [address] BUILDING 2021-04-15 2021-04-15 Outpatient R KUMAR [facility] [id number] Univers 10:00:00 10:33:44 SRIRAM de oliveira o [facility] 2021-04-15 2021-04-15 Outpatient R MAJOR [facility] [id number] Univers 00:00:00 00:00:00 WONDIFUL martyy o f [facility] 2021-04-15 2021-04-15 Orders Doctor MILLAN 1.2.840.114 [id number] Univers 00:00:00 00:00:00 Only Unassigned, CARLOS 350.1.13.10 [facility] 4.2.7.2.686 Bernabe as [phone] [facility] [address] 2021-04-13 2021-04-13 Outpatient R TIN [facility] [id number] Univers 10:00:00 11:12:56 [facility] 2021-04-13 2021-04-13 Office Tin, [facility] 1.2.840.114 [id number] Univers 10:00:00 11:12:56 Visit [facility] 350.1.13.10 it y of [place] 4.2.7.2.686 Bernabe as HUMPHREY?BLEA [phone] Mi dical KNEY [address] [place] MEDICAL OFFICE BUILDING 2021-04-13 2021-04-13 Outpatient R TIN [facility] [id number] Univers 10:00:00 11:12:56 WENTONG ity [facility] 2021-04-13 2021-04-13 Outpatient R CASTLE [facility] [id number] Univers 10:00:00 10:00:00 WENTONG ity of [facility] 2021-04-13 2021-04-13 Outpatient R TIN [facility] [id number] Univers 10:00:00 10:00:00 WENTONG ity of [facility] 2021-04-13 2021-04-13 Outpatient R CASTLE [facility] [id number] Univers 10:00:00 10:00:00 WENTONG ity [facility] 2021-04-12 2021-04-12 Nurse YANA Sanders 1.2.872.695 [id number] Univers 00:00:00 00:00:00 Triage Luis Alberto CARLOS 350.1.13.10 it y of [facility] 4.2.7.2.686 Bernabe as [phone] [address] 2021-04-07 2021-04-07 Telephone [facility] 1.2.063.874 [id number] Univers 00:00:00 00:00:00 Sriram [place] 350.1.13.10 ity of [place] [phone] Mi dical NAL [address] [place] [address] 2021-04-01 2021-04-01 Outpatient R KIA [facility] [id number] Univers 10:00:00 10:40:52 SILVERIO ity [facility] 2021-04-01 2021-04-01 Office [facility] 1.2.840.114 [id number] Univers 10:00:00 10:40:52 Visit Silverio [place] 350.1.13.10 i ty of [place] [id number] Mi dical NAL [address] [place] [address] 2021-03-30 2021-03-30 Telephone [facility] 1.2.840.114 [id number] Univers 00:00:00 00:00:00 [facility] 350.1.13.10 ity of [place] 4.2.7.2.686 Bernabe as HUMPHREY?BLEA [phone] Me dical [address] OFFICE [facility] 2021-03-30 2021-03-30 Telephone Jose [facility] 1.2.840.114 [id number] Univers 00:00:00 00:00:[address] [facility] 350.1.13.10 ity [facility] 4.2.7.2.686 Bernabe as HUMPHREY?ARLETTE [id number] [address] OFFICE [facility] 2021-03-29 2021-03-29 Outpatient MITCHELL TORRES [facility] [id number] Univers 08:00:00 09:38:08 JOSE MITCHELL kelsie [facility] 2021-03-29 2021-03-29 Outpatient MITCHELL TORRES [facility] [id number] Univers 08:00:00 09:38:08 MITCHELL GARCIA kelsie [facility] 2021-03-29 2021-03-29 Outpatient MITCHELL TORRES [facility] [id number] Univers 08:00:00 08:00:00 MITCHELL GARCIA [facility] 2021-03-29 2021-03-29 Orders Doctor MILLAN 1.2.840.114 [id number] Univers 00:00:00 00:00:00 Only Unassigned, CARLOS 350.1.13.10 ity of [facility] 4.2.7.2.686 Bernabe as [phone] [address] 2021-03-23 2021-03-23 Outpatient Moustapha HEATH [facility] [id number] Univers 15:40:00 16:06:08 SRIRAM de oliveira o f [facility] 2021-03-23 2021-03-23 Office [facility] 1.2.840.114 [id number] Univers 15:40:00 16:06:08 Visit Sriram PALOMO 350.1.13.10 ity [facility] 4.2.7.2.[place] [phone] Mi jamilahelinor [facility] 059 [facility] 2021-03-23 2021-03-23 Outpatient Moustapha HEATH [facility] [id number] Univers 16:00:00 16:00:00 SRIRAM de oliveira o f [facility] 2021-03-22 2021-03-22 Telephone [facility] 1.2.840.114 [id number] Univers 00:00:00 00:00:00 Diann DEWEY 350.1.13.10 i ty of [place].2.[place] [id number] Mi dical NAL 188 [facility] 2021-03-21 2021-03-21 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[place], Adc Lab Main [facility] 1.2.8 40.114 [id number] Univers 14:45:00 15:00:00 [facility] 350.1 .13.10 ity of [place].2.[place] [phone] [facility] 353 [facility] 2021-03-21 2021-03-21 Outpatient [facility] [id number] Univers 14:45:00 14:45:00 [facility] 2021-03-21 2021-03-21 Outpatient R [facility] [id number] Univers 14:45:00 14:45:00 [facility] 2021-03-21 2021-03-21 Orders Doctor YANA 1.2.840.114 [id number] Univers 00:00:00 00:00:00 Only Unassigned, CARLOS 350.1.13.10 ity of [place] [facility] 4.2.7.2.686 Bernabe as [id number] [facility] [address] [place] 2021-03-21 2021-03-21 Telephone HiramclemenciarussellGLENNA 1.2.840.114 [id number] Univers 00:00:00 00:00:00 [facility] 350.1.13.10 i ty of [facility] 4.2.7.2.[place] [phone] [facility] [address] [place] 2021-03-20 2021-03-20 Nurse YANA Bautista 1.2.840.114 [id number] Univers 00:00:00 00:00:00 Triage Cielo CARLOS 350.1.13.10 it y of HOSPITAL 4.2.7.2.686 Bernabe as [id number] [facility] [address] [place] 2021-03-18 2021-03-18 Emergency [facility] 1.2.840.114 [id number] Univers 17:02:00 22:45:00 Ananya PALOMO 350.1.13.10 ity of [place] [address] [id number] [facility] [address] 2021-03-18 2021-03-18 Emergency X [facility] ERT [id number] Univers 17:02:00 17:02:00 ANANYA itkelsie [facility] 2021-03-18 2021-03-18 Emergency X [facility] ERT [id number] Univers 16:34:00 16:34:00 itkelsie [facility] 2021-03-18 2021-03-18 Outpatient R EPI [facility] [id number] Univers 15:00:00 16:15:48 JENNIE martykelsie [facility] 2021-03-18 2021-03-18 Office [facility] 1.2.840.114 [id number] Univers 15:00:00 16:15:48 Visit Critical access hospital 350.1.13.10 it y of [place] 4.2.7.2.686 Bernabe as HUMPHREY?BLEA [phone] [address] MEDICAL OFFICE BUILDING 2021-03-18 2021-03-18 Outpatient [facility] ERT [id number] Univers 15:00:00 16:15:48 JENNIE alvino [facility] 2021-03-18 2021-03-18 Outpatient R EPI [facility] [id number] Univers 15:00:00 16:15:48 [facility] 2021-03-18 2021-03-18 Transition JONO Galvan 1.2.840.114 [id number] Univers 00:00:00 00:00:00 of Care Nara MG 350.1.13.10 it y of [facility] 4.2.7.2.[place] [id number] [facility] [address] 2021-03-12 2021-03-17 Inpatient X [facility] [id number] Univers 12:11:00 15:43:00 [facility]y [facility] 2021-03-12 2021-03-17 Hospital AaronDamien nieto 1.2.840 .114 [id number] Univers 12:11:00 15:43:00 Encounter Soni Hunter cohina CARLOS 350.1.13.10 ity of [facility] 4.2.7.2.686 [place] [id number] [facility] [address] 2021-03-12 2021-03-17 Inpatient X [facility] [id number] Univers 12:11:00 15:43:00 [facility] ity [facility] 2021-03-17 2021-03-17 Nurse Esperanza Cronin 1.2.840.114 [id number] Univers 00:00:00 00:00:00 Triage CARLOS 350.1.13.10 it y of [facility] 4.2.7.2.686 Bernabe as [id number] [facility] [address] 2021-03-16 2021-03-16 Case Willian, [facility] 1.2.840.114 [id number] Univers 00:00:00 00:00:00 Management Wissam Y HEALTH 350.1.13.10 ity of [place] [facility] 4.2.7.2.[place] [id number] [facility] [address] 2021-03-16 2021-03-16 Case Willian, [facility] 1.2.840.114 [id number] Univers 00:00:00 00:00:00 Management Wissam Y HEALTH 350.1.13.10 ity of [place] [facility] 4.2.7.2.[place] [id number] [facility] [address] 2021-03-11 2021-03-11 Transition JONO Galvan 1.2.840.114 [id number] Univers 00:00:00 00:00:00 of Care Nara CASEYY 350.1.13.10 it y of [place] 4.2.7.2.[place] [id number] [facility] [address] 2021-03-11 2021-03-11 Telephone [facility] 1.2.161.257 [id number] Univers 00:00:00 00:00:00 Sriram [place]OM[place] 350.1.13.10 ity [facility] 4.2.7.2.[place] [phone] Mi dical NAL 059 [facility] 2021-03-07 2021-03-10 Outpatient X ANUJ GONZALES [facility] SAMI [id number] Univers 08:28:00 14:20:00 ity of [facility] 2021-03-07 2021-03-10 Emergency Hudson Wolfe 1.2.840. 114 [id number] Univers 08:28:00 14:20:00 Anuj Gonzales Leslie RENEE 350.1.13.1 0 ity [facility] 4.2.7.2.686 Bernabe as [id number] [facility] [address] 2021-03-07 2021-03-10 Outpatient X ANUJ GONZALES [facility] SAMI [id number] Univers 08:28:00 14:20:00 ity of [facility] 2021-03-09 2021-03-09 Surgery Misael Castro [facility] 1.2.840.114 [id number] Univers 09:36:00 10:16:00 David ABBASI 350.1.13.10 it y of [place] 4.2.7.2.686 Bernabe as BLDG [id number] [facility] [address] 2021-03-03 2021-03-03 [facility] [id number] Univers 14:00:00 14:44:31 SHANTEL ity [facility] 2021-03-03 2021-03-03 Office [facility] 1.2.840.114 [id number] Univers 14:00:00 14:44:31 Visit Shantel [place]OM[place] 350.1.13.10 ity [facility] 4.2.7.2.[place] [phone] Mi dical NAL 188 [facility] 2021-03-03 2021-03-03 Outpatient R BROOKS [facility] [id number] Univers 14:00:00 14:00:00 DIANN ity [facility] 2021-02-08 2021-02-08 Office Sabina Barba [facility] 1.2.840.114 [id number] Univers 15:30:00 16:44:10 Visit KHLOE 350.1.13.10 it y of [facility] [place].2.[place] [id number] [address] 2021-02-08 2021-02-08 Outpatient R SABINA BARBA [facility] [id number] Univers 15:30:00 16:44:10 ity [facility] 2021-02-08 2021-02-08 Outpatient R SABINA BARBA [facility] [id number] Univers 15:30:00 16:44:10 ity [facility] 2021-02-08 2021-02-08 Outpatient R SABINA BARBA [facility] [id number] Univers 15:30:00 15:30:00 ity [facility] 2021-02-08 2021-02-08 Outpatient R SABINA BARBA [facility] [id number] Univers 15:30:00 15:30:00 [facility] 2021-02-03 2021-02-03 Case [facility] 1.2.840.114 [id number] Univers 00:00:00 00:00:00 Management Wondiful A HEALTH 350.1.13.10 ity of [place] 4.2.7.2.686 Bernabe as HUMPHREY?BLEA [phone] [facility] [address] [place] MEDICAL OFFICE BUILDING 2021-02-01 2021-02-01 Office [facility] 1.2.840.114 [id number] Univers 15:30:00 16:58:42 Visit Ericka HEALTH 350.1.13.10 it y of [place] 4.2.7.2.686 Bernabe as HUMPHREY?BLEA [id number] [facility] [address] [place] MEDICAL OFFICE BUILDING 2021-02-01 2021-02-01 Outpatient [facility] [id number] Univers 15:30:00 16:58:42 ERICKA ity [facility] 2021-02-012021-02-01 Outpatient R MEKA [facility] [id number] Univers 16:30:00 16:30:00 ERICKA kelsie [facility] 2021-02-01 2021-02-01 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Lab, [place] [facility] 1.2.840.1 14 [id number] Univers 16:02:42 16:17:42 Visit [facility] 350.1.13.10 ity of [facility] [facility] 4.2.7.2.686 Bernabe as HUMPHREY?BLEA [id number] [address] OFFICE [facility] 2021-02-01 2021-02-01 Outpatient R MEKA [facility] [id number] Univers 15:30:00 15:30:00 ERICKA [facility] 2021-01-31 2021-01-31 [facility]patient [facility] [id number] Univers 13:40:00 13:44:29 [facility] 2021-01-31 2021-01-31 [facility] [id number] Univers 13:40:00 13:44:29 SRIRAM [facility] 2021-01-31 2021-01-31 [facility] [id number] Univers 13:18:52 13:44:29 [facility] [id number] [id number] [phone] [facility] 059 [facility] 2021-01-31 2021-01-31 [facility] [id number] Univers 13:40:00 13:40:00 SRIRAM y o [facility] 2021-01-31 2021-01-31 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, [place] [facility] [id number] Univers 10:03:00 10:18:00 [facility] [id number] [facility] [id number] Bernabe as HUMPHREY?BLEA [phone] [address] MEDICAL OFFICE [facility] 2021-01-31 2021-01-31 Office [facility] [id number] Univers 09:22:40 10:03:18 Visit Wondiful [facility] [id number] ity of [place] [id number] Bernabe as HUMPHREY?BLEA [phone] Mi sherif [place] [address] [place] MEDICAL OFFICE [facility] 2021-01-31 2021-01-31 [facility] [id number] Univers 09:30:00 09:30:00 WONDIFUL ity o f [facility] 2021-01-11 2021-01-11 [facility] [place] [facility] [id number] Univers 00:00:00 00:00:00 Management Wondiful [facility] [id number] ity of [place] [id number] Bernabe as HUMPHREY?BLEA [phone] Mi sherif [place] [address] [place] MEDICAL OFFICE [facility] 2021-01-07 2021-01-07 [facility] [id number] Univers 16:30:00 23:59:00 WONDIFUL ity o f [facility] 2021-01-07 2021-01-07 [facility] [id number] Univers 16:30:00 23:59:00 Encounter Wondiful [facility] 350.1.13.10 ity of [place] 4.2.7.2.686 Bernabe as HUMPHREY?BLEA [phone] Mi sherif HOLLAND [address] [place] MEDICAL OFFICE [facility] 2021-01-07 2021-01-07 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Lab, Ang - Db [facility] 1.2.840.1 14 [id number] Univers 16:36:52 16:51:52 Visit Clare Gonsalves A HEALTH 350.1.13.1 0 ity of [place] 4.2.7.2.686 Bernabe as HUMPHREY?BLEA [phone] Mi sherif HOLLAND [address] [place] MEDICAL OFFICE BUILDING 2021-01-07 2021-01-07 [facility] [id number] Univers 16:15:00 16:37:00 WONDIFUL ity o f [facility] 2021-01-07 2021-01-07 Office [facility] 1.2.840.114 [id number] Univers 15:34:25 16:37:00 Visit Wondiful A HEALTH 350.1.13.10 ity of [place] 4.2.7.2.686 Bernabe as HUMPHREY?BLEA [phone] [address] MEDICAL OFFICE [facility] 2021-01-05 2021-01-05 Telephone [facility] 1.2.840.114 [id number] Univers 00:00:00 00:00:00 Wondiful A HEALTH 350.1.13.10 ity of [place] 4.2.7.2.686 Bernabe as HUMPHREY?BLEA [phone] [address] OFFICE [facility] 2020-12-28 2020-12-28 Outpatient R KIA [facility] [id number] Univers 14:00:00 14:00:00 SILVERIO ity of [facility] 2020-12-27 2020-12-27 Outpatient R MAJOR [facility] [id number] Univers 13:14:51 23:59:00 WONDIFUL ity o f [facility] 2020-12-27 2020-12-27 [facility] 1.2.534.989 [id number] Univers 13:00:00 23:59:00 Encounter Wondiful A [place] 350.1.13.10 ity of [place] 4.2.7.2.686 [place] [facility] [phone] [address] 2020-12-27 2020-12-27 Outpatient [facility] [id number] Univers 00:00:00 00:00:00 WONDIFUL ity o f [facility] 2020-12-13 2020-12-13 [facility] 1.2.840.114 [id number] Univers 00:00:00 00:00:00 Wondiful A Health 350.1.13.10 ity of [place] 4.2.7.2.686 Bernabe as Humphrey?Blea [phone] [address] Medical Office [facility] 2020-12-132020-12-13 Telephone Major DARYL 1.2.840.114 [id number] Univers 00:00:00 00:00:00 Wondiful A Health 350.1.13.10 ity of [place] 4.2.7.2.686 Bernabe as Humphrey?Blea [phone] [address] Office [facility] 2020-12-06 2020-12-06 Telephone Major DARYL 1.2.840.114 [id number] Univers 00:00:00 00:00:00 Wondiful A Health 350.1.13.10 ity of [place] 4.2.7.2.686 Bernabe as Humphrey?Blea [phone] [address] 2020-12-03 2020-12-03 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Lab, Ang - Db [facility] 1.2.840.1 14 [id number] Univers 16:48:38 17:03:11 Visit Clare Gonsalves Health 350.1.13.1 0 ity of [place] 4.2.7.2.686 Bernabe as Humphrey?Blea [phone] [address] Office [facility] 2020-12-03 2020-12-03 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Lab, Ang - Db [facility] 1.2.840.1 14 [id number] Univers 16:48:38 17:03:11 Visit Clare Gonsalves Health 350.1.13.1 0 ity of [place] 4.2.7.2.686 Bernabe as Humphrey?Blea [phone] [address] Office [facility] 2020-12-03 2020-12-03 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Lab, Ang - Db [facility] 1.2.840.1 14 [id number] Univers 16:48:38 17:03:11 Visit Clare Gonsalves HEALTH 350.1.13.1 0 ity of [place] 4.2.7.2.686 Bernabe as HUMPHREY?BLEA [phone] [address] OFFICE [facility] 2020-12-03 2020-12-03 Office JAYNE GonsalvesMB 1.2.840.114 [id number] Univers 15:32:14 16:49:03 Visit Wondiful A Health 350.1.13.10 ity of [place] 4.2.7.2.686 Bernabe as Humphrey?Blea [phone] Mi sherif kney 044 [facility] Office [facility] 2020-12-03 2020-12-03 Outpatient R MAJOR [facility] [id number] Univers 15:45:00 15:45:00 WONDIFUL ity o f [facility] 2020-11-23 2020-11-23 Office [facility] 1.2.840.114 [id number] Univers 09:49:05 10:43:01 Visit Silverio [place] 350.1.13.10 i ty of [place] 4.2.7.2.[place] Profess[place] [phone] [address] 2020-11-23 2020-11-23 Outpatient R KIA [facility] [id number] Univers 10:00:00 10:00:00 SILVERIO ity of [facility] 2020-11-15 2020-11-15 Refisra [facility] 1.2.840.114 [id number] Univers 00:00:00 00:00:00 Qiangjun [place] 350.1.13.10 ity of [place].2.7.2.686 [place] Profess[place] [phone] [address] 2020-11-15 2020-11-15 Refisra [facility] 1.2.840.114 [id number] Univers 00:00:00 00:00:00 Wondiful A [place] 350.1.13.10 ity of [place] 4.2.7.2.686 [place] [phone] [address] 2020-11-11 2020-11-11 Cali [facility] 1.2.840.114 [id number] Univers 00:00:00 00:00:00 Wondiful A Health 350.1.13.10 ity of [place] 4.2.7.2.686 Bernabe as Professio [phone] [address] One 2020-10-05 2020-10-05 Refisra [facility] 1.2.840.114 [id number] Univers 00:00:00 00:00:00 Wondiful A Health 350.1.13.10 ity of [place] 4.2.7.2.686 Bernabe as Professio [phone] [address] 2020-10-04 2020-10-04 Orders Doctor YANA 1.2.840.114 [id number] Univers 00:00:00 00:00:00 Only Unassigned, CARLOS 350.1.13.10 ity of [place] [facility] 4.2.7.2.686 Bernabe as [phone] [address] 2020-09-24 2020-09-24 Refisra [facility] 1.2.840.114 [id number] Univers 00:00:00 00:00:00 Wondiful A Health 350.1.13.10 ity of [place] 4.2.7.2.686 Bernabe as Professio [phone] [facility] 044 [facility] 2020-09-09 2020-09-09 Cali Heath [facility] 1.2.840.114 [id number] Univers 00:00:00 00:00:00 Qiangjun [place] 350.1.13.10 ity of [place] 4.2.7.2.[place] [phone] [facility] 059 [facility] 2020-09-03 2020-09-03 Refis[facility] 1.2.840.114 [id number] Univers 00:00:00 00:00:00 Wondiful A Health 350.1.13.10 ity of [place] 4.2.7.2.686 Bernabe as Professio [phone] [address] 2020-07-27 2020-07-27 Outpatient R KIA WVJENNI [facility] [id number] Univers 10:20:00 10:20:00 SILVERIO ity of [facility] 2020-07-27 2020-07-27 Office Kia WVJENNI 1.2.840.114 [id number] Univers 09:56:55 10:16:55 [facility] 350.1.13.10 i ty of [place].2.7.2.[place] [phone] [facility] 059 [facility] 2020-07-13 2020-07-13 Orders Doctor YANA 1.2.840.114 [id number] Univers 00:00:00 00:00:00 Only Unassigned, CARLOS 350.1.13.10 [facility] 4.2.7.2.686 Bernabe as [phone] [address] 2020-07-08 2020-07-08 Refisra Gonsalves [facility] 1.2.840.114 [id number] Univers 00:00:00 00:00:00 Wondiful A Health 350.1.13.10 ity of [place] 4.2.7.2.686 Bernabe as Professio [phone] [facility] [address] [place] Office Building One 2020-06-29 2020-06-29 Outpatient R [facility] [id number] Univers 10:30:00 10:30:00 ity [facility] 2020-06-29 2020-06-29 Outpatient [facility] [id number] Univers 10:30:00 10:30:00 SILVERIO ity [facility] 2020-06-07 2020-06-07 Office [facility] 1.2.840.114 [id number] Univers 13:02:14 13:29:23 Visit Sriram [place] 350.1.13.10 ity of [place] 4.2.7.2.686 [place] [phone] [facility] 059 [facility] 2020-06-07 2020-06-07 Outpatient [facility] [id number] Univers 13:00:00 13:00:00 SRIRAM de oliveira o [facility] 2020-06-02 2020-06-02 Outpatient R DEE [facility] [id number] Univers 19:20:00 19:20:00 VIRI de oliveira o [facility] 2020-06-02 2020-06-02 Laboratory Lab, Adc Fam Pob I [facility] 1.2. 840.114 [id number] Univers 18:38:28 18:58:28 Only Jose [facility] 350.1.13.10 ity of [place] 4.2.7.2.686 [place] Professio [phone] [address] Office [facility] One 2020-06-02 2020-06-02 Letter Doctor YANA 1.2.840.114 [id number] Univers 00:00:00 00:00:00 (Out) Unassigned, CARLOS 350.1.13.10 ity of [place] [facility] 4.2.7.2.686 Bernabe as [phone] [address] 2020-06-02 2020-06-02 Letter Doctor YANA 1.2.840.114 [id number] Univers 00:00:00 00:00:00 (Out) Unassigned, CARLOS 350.1.13.10 ity of [place] [facility] 4.2.7.2.686 Bernabe as [phone] [address] 2020-06-02 2020-06-02 Letter Doctor YANA 1.2.840.114 [id number] Univers 00:00:00 00:00:00 (Out) Unassigned, CARLOS 350.1.13.10 ity of [place] [facility] 4.2.7.2.686 Bernabe as [phone] [address] 2020-06-02 2020-06-02 Letter Doctor YANA 1.2.840.114 [id number] Univers 00:00:00 00:00:00 (Out) Unassigned, CARLOS 350.1.13.10 ity of [place] [facility] 4.2.7.2.686 Bernabe as [phone] [facility] [address] [place] 2020-05-20 2020-05-20 Telephone YANA Samano 1.2.959.792 [id number] Univers 00:00:00 00:00:00 Teri RENEE 350.1.13.10 ity of HOSPITAL 4.2.7.2.686 Bernabe as [phone] [facility] [address] [place] 2020-05-20 2020-05-20 Telephone YANA Samano 1.2.298.282 [id number] 00:00:00 00:00:00 Teri RENEE 350.1.13.10 [facility] 42.7.2.686 [id number] 082 2020-04-28 2020-04-28 Refill [facility] 1.2.840.114 [id number] Univers 00:00:00 00:00:00 Silverio [place] 350.1.13.10 i ty of [place].2.[place].2.[place] [phone] Mi dicpr nal [address] [place] [address] 2020-04-27 2020-04-27 [facility] 1.2.840.114 [id number] Univers 11:25:29 11:45:29 Visit Silverio [place] 350.1.13.10 i ty of [place] [address].2.7.2.686 [place] Profess[place] [phone] [address] 2020-04-27 2020-04-27 Outpatient [facility] [id number] Univers 11:40:00 11:40:00 SILVERIO ity [facility] [place] 2020-04-26 2020-04-26 Outpatient [facility] [id number] Univers 10:20:00 10:20:00 ERICH ity [facility] 2020-04-14 2020-04-14 [facility] 1.2.474.305 [id number] Univers 09:18:24 23:59:00 Encounter Wondiful Lauryn Palomo 350.1.13.10 ity [facility] 4.2.7.2.686 [place] [phone] [address] 2020-04-14 2020-04-14 Outpatient [facility] [id number] Univers 00:00:00 00:00:00 WONDIFUL ity o f [facility] 2020-03-31 2020-03-31 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[place], Adc Lab Main [facility] 1.2.8 40.114 [id number] Univers 09:18:24 09:33:24 Visit [place], Wondiful A [place] 350.1.13. 10 ity of [place] 4.2.7.2.686 [place] [phone] Mi dical nal 353 [facility] 2020-03-31 2020-03-31 Outpatient [facility] [id number] Univers 09:15:00 09:15:00 WONDIFUL ity o f [facility] 2020-03-30 2020-03-30 Laboratory Pacemaker/Icd, [facility] 1.2. 840.114 [id number] Univers 12:51:02 13:15:05 Only Sewdom, Silverio Dewey 350.1.13.10 ity of [place] 4.2.7.2.686 [place] [phone] [facility] 059 [facility] 2020-03-30 2020-03-30 Outpatient R [facility] [id number] Univers 13:00:00 13:00:00 ity of [facility] 2020-03-29 2020-03-29 Office [facility] 1.2.840.114 [id number] Univers 15:15:24 16:12:41 [facility] 350.1.13.10 ity of [place] 4.2.7.2.686 Bernabe as Professio [phone] [facility] [address] [place] Office Building One 2020-03-29 2020-03-29 Outpatient [facility] [id number] Univers 15:30:00 15:30:00 WONDIFUL ity o f [facility] 2020-03-03 2020-03-03 Orders Doctor YANA 1.2.840.114 [id number] Univers 00:00:00 00:00:00 Only Unassigned, CARLOS 350.1.13.10 ity of [place] [facility] 4.2.7.2.686 Bernabe as [phone] [address] 2020-02-03 2020-02-03 Outpatient [facility] [id number] Univers 14:20:00 14:20:00 SRIRAM ity o f [facility] 2020-02-03 2020-02-03 Office [facility] 1.2.840.114 [id number] Univers 13:38:09 14:13:45 Visit Guillechaim Palomo 350.1.13.10 ity of [place] 4.2.7.2.686 [place] [phone] Mi dicpr nal [address] [place] [address] 2020-01-27 2020-01-27 Office [facility] 1.2.840.114 [id number] Univers 10:58:57 11:32:49 Visit Silverio Dewey 350.1.13.10 i ty of [place] 4.2.7.2.686 [place] [phone] [address] 2020-01-27 2020-01-27 Outpatient R [facility] [id number] Univers 11:00:00 11:00:00 SILVERIO ity of [facility] 2020-01-20 2020-01-20 Orders Doctor YANA 1.2.840.114 [id number] Univers 00:00:00 00:00:00 Only Unassigned, CARLOS 350.1.13.10 ity of [place] [facility] 4.2.7.2.686 Bernabe as [phone] [address] 2020-01-20 2020-01-20 Telephone [facility] 1.2.051.021 [id number] Univers 00:00:00 00:00:00 Sriram Palomo 350.1.13.10 ity of [place] 4.2.7.2.686 [place] [phone] Mi dic[address] 2020-01-20 2020-01-20 Refill [facility] 1.2.840.114 [id number] Univers 00:00:00 00:00:00 Qiachaim Palomo 350.1.13.10 ity of [place] 4.2.7.2.686 [place] [phone] Mi dicpr nal [address] [place] [address] 2020-01-14 2020-01-14 Orders Doctor YANA 1.2.840.114 [id number] Univers 00:00:00 00:00:00 Only Unassigned, CARLOS 350.1.13.10 ity of [place] [facility] 4.2.7.2.686 Bernabe as [phone] [address] 2020-01-12 2020-01-12 Outpatient R KUMAR, [facility] [id number] Univers 10:00:00 10:00:00 DIMITRIZECHARIAH itkelsie o f [facility] 2020-01-05 2020-01-05 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, Adc Lab [facility] 1.2.840.114 [id number] Univers 15:31:18 15:46:18 Visit Omole, Min Palomo 350.1.1 3.10 ity of [place] 4.2.7.2.686 [place] [phone] Mi dical nal 353 [facility] 2020-01-05 2020-01-05 Office krystle, [facility] 1.2.840.114 [id number] Univers 14:39:45 15:28:14 Visit Min Palomo 350.1.13.10 i ty of Gretchen [place] 4.2.7.2.686 [place] [phone] Mi dicpr nal 059 [facility] 2020-01-05 2020-01-05 Outpatient R FREDDY, [facility] [id number] Univers 14:45:00 14:45:00 MIN ity of [facility] 2020-01-05 2020-01-05 Orders Doctor MILLAN 1.2.840.114 [id number] Univers 00:00:00 00:00:00 Only Unassigned, CARLOS 350.1.13.10 ity of [place] [facility] 4.2.7.2.686 Bernabe as [phone] [address] 2020-01-01 2020-01-01 Telephone Kumar, [facility] 1.2.647.005 [id number] Univers 00:00:00 00:00:00 Dimitrizechariah Dewey 350.1.13.10 ity of [place] 4.2.7.2.[place] [phone] Mi dicpr nal 059 [facility] 2019-12-19 2019-12-19 Office [facility] 1.2.840.114 [id number] Univers 11:30:41 12:16:36 Visit Nita [place]omo 350.1.13.10 i ty of [place] 4.2.7.2.686 [place] [phone] Mi dical nal 085 [facility] 2019-12-19 2019-12-19 Outpatient R NITA DEGROOT [facility] [id number] Univers 11:40:00 11:40:00 NITA DEGROOT i ty of [facility] 2019-12-19 2019-12-19 Telephone [facility] 1.2.365.919 [id number] Univers 00:00:00 00:00:00 Qialisazechariah Palomo 350.1.13.10 ity of [place] 4.2.7.2.686 [place] [phone] Mi dicpr nal 059 [facility] 2019-12-18 2019-12-18 Orders Doctor YANA 1.2.840.114 [id number] Univers 00:00:00 00:00:00 Only Unassigned, CARLOS 350.1.13.10 ity of [place] [facility] 4.2.7.2.686 Bernabe as [phone] [address] 2019-12-16 2019-12-16 Office [facility] 1.2.840.114 [id number] Univers 08:53:47 09:13:47 Visit Silverio [place] 350.1.13.10 i ty of [place] 4.2.7.2.686 [place] Profess[place] [phone] [facility] nal 059 [facility] 2019-12-16 2019-12-16 Outpatient R KIA [facility] [id number] Univers 09:00:00 09:00:00 SILVERIO ity of [facility] 2019-12-15 2019-12-15 Telephone [facility] 1.2.840.114 [id number] Univers 00:00:00 00:00:00 Wondiful A Health 350.1.13.10 ity of [place] 4.2.7.2.686 Bernabe as Professio [phone] [facility] [address] [place] Office [facility] One 2019-12-15 2019-12-15 Case [facility] 1.2.840.114 [id number] Univers 00:00:00 00:00:00 Management Wondiful A Health 350.1.13.10 ity of [place] 4.2.7.2.686 Bernabe as Professio [phone] [facility] [address] [place] Office Building [facility] 2019-12-10 2019-12-10 Orders Doctor YANA 1.2.840.114 [id number] Univers 00:00:00 00:00:00 Only Unassigned, CARLOS 350.1.13.10 ity of [place] [facility] 4.2.7.2.686 Bernabe as [phone] [address] 2019-12-09 2019-12-09 Urgent Provider, [facility] Urgent Care [facility] 1.2.840.114 [id number] Univers 14:46:41 15:59:38 Care Yeni [facility] 350.1.13.10 ity of [place] 4.2.7.2.686 Bernabe as Professio [phone] [address] Office [facility] 2019-12-09 2019-12-09 Outpatient R LUKE [facility] [id number] Univers 15:00:00 15:00:00 MONICA ity of [facility] 2019-12-04 2019-12-04 Office [place] [facility] 1.2.840.114 [id number] Univers 12:39:51 13:39:11 Visit Wonjoshua A Health 350.1.13.10 ity of [place] 4.2.7.2.686 Bernabe as Professio [phone] [address] Office [facility] 2019-12-04 2019-12-04 Outpatient [facility] [id number] Univers 13:00:00 13:00:00 WONDIFUL ity o f [facility] 2019-12-02 2019-12-02 Laboratory Pacemaker/Icd, [facility] 1.2. 840.114 [id number] Univers 10:50:24 11:27:03 Only Sriram [place] 350.1.13.10 ity of [place].2.[place].2.[place] [phone] [facility] 059 [facility] 2019-12-02 2019-12-02 Outpatient R [facility] [id number] Univers 11:00:00 11:00:00 ity of [facility] 2019-12-02 2019-12-02 Telephone [facility] 1.2.840.114 [id number] Univers 00:00:00 00:00:00 Wondiful A Health 350.1.13.10 ity of [place] 4.2.7.2.686 Bernabe as Professio [phone] Mi dical nal [address] [place] Office [facility] One 2019-12-01 2019-12-01 Office [facility] 1.2.840.114 [id number] Univers 15:16:46 16:01:04 Visit Sriram Palomo 350.1.13.10 ity of [place] 4.2.7.2.[place] [phone] Mi dical nal 059 [facility] 2019-12-01 2019-12-01 Outpatient R KUMAR [facility] [id number] Univers 15:40:00 15:40:00 GUILLELISAZECHARIAH martyy o f [facility] 2019-12-01 2019-12-01 Transition Jono Mccurdy 1.2.840.114 [id number] Univers 00:00:00 00:00:00 of Care Jo L Mg 350.1.13.10 i ty of [place] 4.2.7.2.[place] [phone] [facility] [address] [place] 2019-11-26 2019-11-28 Hospital Kirt Thomason [facility] 1.2.840.1 14 [id number] Univers 14:42:00 15:06:00 Encounter Gab Servin 350.1.13.10 ity of [place] 4[place]2.[place].2.686 [place] [phone] [facility] [address] 2019-11-26 2019-11-28 Inpatient X GAB SERVIN [facility] SAMI [id number] Univers 14:42:00 15:06:00 ity of [facility] 2019-11-26 2019-11-26 Telephone [facility] 1.2.840.114 [id number] Univers 00:00:00 00:00:00 Wondiful A Health 350.1.13.10 ity of [place] 4.2.7.2.686 Bernabe as Professio [phone] Mi dical nal [address] [place] Office Building One 2019-11-24 2019-11-24 Telemedici [facility] 1.2.840.114 [id number] Univers 12:42:21 16:15:48 ne Visit Wondiful A Health 350.1.13.10 ity of [place] 4.2.7.2.686 Bernabe as Professio [phone] [facility] nal [address] [place] Office Building One 2019-11-24 2019-11-24 Outpatient [facility] [id number] Univers 15:30:00 15:30:00 WONDIFUL ity o f [facility] 2019-11-24 2019-11-24 Transition Jono Henry 1.2.840.114 [id number] Univers 00:00:00 00:00:00 of Care Cielo Mg 350.1.13.10 it y of [place] 4[place]2.7.2.[place] [phone] [facility] [address] [place] 2019-11-24 2019-11-24 Orders Doctor YANA 1.2.840.114 [id number] Univers 00:00:00 00:00:00 Only Unassigned, CARLOS 350.1.13.10 ity of [place] [facility] 4.2.7.2.686 Bernabe as [phone] [facility] [address] 2019-11-21 2019-11-21 Transition Jono Henry 1.2.840.114 [id number] Univers 00:00:00 00:00:00 of Care Icelo Mg 350.1.13.10 it y of [place] 4.2.7.2.[place] [phone] [facility] [address] [place] 2019-11-08 2019-11-20 [facility] Fam Craig 1.2.840.114 [id number] Univers 18:18:00 16:52:00 Encounter Argenis Barnett Carlos 350.1.13.1 0 ity of [facility] 4.2.7.2 .686 [place] [phone] [facility] [address] 2019-11-08 2019-11-20 [facility] [id number] Univers 18:18:00 16:52:00 AHMED ity of [facility] 2019-11-20 2019-11-20 Cali [facility] 1.2.840.114 [id number] Univers 00:00:00 00:00:00 Wondiful A Health 350.1.13.10 ity of [place] 4.2.7.2.686 Bernabe as Professio [phone] [address] 2019-11-19 2019-11-19 Outpatient [facility] [id number] Univers 14:30:00 14:30:00 [facility] 2019-11-19 2019-11-19 Refisra [facility] 1.2.840.114 [id number] Univers 00:00:00 00:00:00 [facility] [id number] [facility]y of [place] [id number] Bernabe as Professio [id number] [address] 2019-11-17 2019-11-17 [facility] [id number] Univers 08:00:00 08:00:00 SILVERIO ity [facility] 2019-11-14 2019-11-14 Outpatient R [facility] [id number] Univers 09:00:00 09:00:00 ity of [facility] 2019-11-10 2019-11-10 [facility] 1.2.840.114 [id number] Univers 00:00:00 00:00:00 [facility] [id number] ity of [place] [id number] Bernabe as Professio [phone] [address] [facility] 2019-11-08 2019-11-08 [facility] 1.2.840.114 [id number] Univers 00:00:00 00:00:00 [facility] [id number] ity of [place] [id number] Bernabe as Professio [phone] [address] [facility] 2019-11-05 2019-11-05 Hospital K[facility] 1.2.840.114 [id number] Univers 07:42:01 23:59:00 Encounter [facility] [id number] [place]y [id number] [phone] [address] ([facility]) 2019-11-05 2019-11-05 Outpatient R KIA [facility] [id number] Univers 00:00:00 00:00:00 SILVERIO ity of [facility] 2019-10-29 2019-10-29 Pre Visit Major [facility] 1.2.840.114 [id number] Univers 00:00:00 00:00:00 Outreach [facility] [id number] ity of [place] [id number] Bernabe as Professio [phone] [address] 2019-10-29 2019-10-29 Pre Visit Major [facility] 1.2.840.114 [id number] Univers 00:00:00 00:00:00 Outreach [facility] 350.1.13.10 ity of [place] 4.2.7.2.686 Bernabe as Professio [phone] [address] Office Building One 2019-10-28 2019-10-28 Office Major [facility] 1.2.840.114 [id number] Univers 08:55:08 09:43:57 Visit [facility] 350.1.13.10 ity of [place] 4.2.7.2.686 Bernabe as Professio [phone] [address] Office Building [facility] 2019-10-28 2019-10-28 Outpatient R MAJOR [facility] [id number] Univers 09:30:00 09:30:00 WONDIFUL ity o f [facility] 2019-10-24 2019-10-24 Emergency Lukasz [facility] 1.2.557.406 [id number] Univers 19:34:00 23:51:00 Lubna S [place] 350.1.13.10 ity of [place] [phone] [facility] [address] [place] 2019-10-24 2019-10-24 Emergency X LUKASZ, [facility] ERT [id number] Univers 19:34:00 23:51:00 LUBNA ity of [facility] 2019-10-24 2019-10-24 Telephone [facility] 1.2.840.114 [id number] Univers 00:00:00 00:00:00 [facility] 350.1.13.10 ity of [place] 4.2.7.2.686 Bernabe as Professio [phone] [address] Office Building [facility] 2019-10-24 2019-10-24 Orders Doctor YANA 1.2.840.114 [id number] Univers 00:00:00 00:00:00 Only Unassigned, CARLOS 350.1.13.10 ity of [place] [facility] 4.2.7.2.686 Bernabe as [phone] [facility] [address] [place] 2019-10-21 2019-10-21 Telephone Mary Kay Adam 1.2.879.064 [id number] Univers 00:00:00 00:00:00 Silverio [place] 350.1.13.10 it y of Hospital 4.2.7.2.686 Bernabe as [phone] [facility] 039 [place] 2019-10-09 2019-10-09 Telephone GLENNA Adam 1.2.840.114 [id number] Univers 00:00:00 00:00:00 Silverio Y HEALTH 350.1.13.10 i ty of CL[place]ICS [place] [phone] [facility] 059 [place] 2019-10-08 2019-10-08 Telephone [facility] 1.2.840.114 [id number] Univers 00:00:00 00:00:00 [facility] 350.1.13.10 ity of [place] 4.2.7.2.686 Bernabe as Professio [phone] [address] Office [facility] 2019-10-08 2019-10-08 [facility] 1.2.822.631 [id number] Univers 00:00:00 00:00:00 Silverio [place] 350.1.13.10 i [place] Profess[place] [phone] [facility] 059 [facility] 2019-10-01 2019-10-01 Orders Doctor YANA 1.2.840.114 [id number] Univers 00:00:00 00:00:00 Only Unassigned, CARLOS 350.1.13.10 ity of [place] [facility] 4.2.7.2.686 Bernabe as [phone] [address] 2019-09-23 2019-09-23 Telephone [facility] 1.2.898.358 [id number] Univers 00:00:00 00:00:00 Silverio [place] 350.1.13.10 i [place] Profess[place] [phone] [facility] 059 [facility] 2019-09-18 2019-09-18 [facility] 1.2.840.114 [id number] Univers 00:00:00 00:00:00 Wondiful A [place] 350.1.13.10 ity of [place] Profess[place] [phone] [facility] 044 [facility] 2019-09-17 2019-09-17 [facility] 1.2.837.681 [id number] Univers 00:00:00 00:00:00 Silverio [place] 350.1.13.10 i ty of [place] Profess[place] [phone] [place] 479[address] [facility] 2019-09-16 2019-09-16 Office [facility] 1.2.840.114 [id number] Univers 10:18:05 12:06:59 Visit Silverio [place] 350.1.13.10 i ty of [place]2.[place] Profess[place] [phone] [place] 479369 [facility] 2019-09-16 2019-09-16 Outpatient [facility] [id number] Univers 10:40:00 10:40:00 SILVERIO ity of [facility] 2019-09-16 2019-09-16 Telephone [facility] 1.2.532.434 [id number] Univers 00:00:00 00:00:00 Dimitrizechariah [place] 350.1.13.10 ity of [place] Professio [phone] [place] [address] [facility] 2019-09-15 2019-09-15 Laboratory Pc, Adc Echo Room 1 - [facility] 1 .2.840.114 [id number] Univers 09:42:44 11:10:38 Only Kumar Sriram Palomo 350.1.13.10 ity of [place].2.[place].2.[place] Profess[place] [phone] [address] 2019-09-15 2019-09-15 Outpatient R [facility] [id number] Univers 10:00:00 10:00:00 ity of [facility] 2019-09-10 2019-09-10 Tele[facility] 1.2.840.114 [id number] Univers 00:00:00 00:00:00 Wondiful A Dewey 350.1.13.10 ity of [place] Professio [phone] [address] 2019-09-08 2019-09-08 Office [facility] 1.2.840.114 [id number] Univers 13:10:22 13:44:08 Visit Sriram [place] 350.1.13.10 ity of [place].2.[place].2.[place] Professio [phone] [address] 2019-09-08 2019-09-08 Outpatient [facility] [id number] Univers 13:20:00 13:20:00 SRIRAM fergusony o f [facility] 2019-08-25 2019-08-25 Refill [facility] 1.2.840.114 [id number] Univers 00:00:00 00:00:00 Sriram Health 350.1.13.10 i ty of [place] 4.2.7.2.686 Bernabe as Professio [phone] [address] Office [facility] One 2019-08-18 2019-08-18 Telephone Kumar, [facility] 1.2.781.855 [id number] Univers 00:00:00 00:00:00 Sriram Palomo 350.1.13.10 ity of [place]2.[place].2.[place] Profess[place] [phone] Mi dicpr nal 059 [facility] 2019-08-15 2019-08-15 Nurse Visit, [facility] Nurse [facility] 1.2.840.1 14 [id number] Univers 09:12:28 21:57:47 Visit Dago Gross 350.1.13. 10 ity of [place].2.[place].2.[place] [phone] Mi dical nal 059 [facility] 2019-08-15 2019-08-15 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, [facility] Lab [facility] 1.2.840.114 [id number] Univers 10:09:35 10:24:35 Visit Dago Gross 350.1.13. 10 ity of [place].2.[place].2.[place] [phone] Mi dical nal 353 [facility] 2019-08-15 2019-08-15 Outpatient R [facility] [id number] Univers 09:30:00 09:30:00 ity of [facility] 2019-08-13 2019-08-13 Office [facility] 1.2.840.114 [id number] Univers 16:05:34 16:57:20 Visit Alexey Palomo 350.1.13.10 i ty of [place].2.[place].2.[place] [phone] Mi dical nal 220 [facility] 2019-08-13 2019-08-13 Outpatient [facility] [id number] Univers 16:30:00 16:30:00 ALEXEY ity [facility] 2019-08-13 2019-08-13 Orders Doctor MILLAN 1.2.840.114 [id number] Univers 00:00:00 00:00:00 Only Unassigned, CARLOS 350.1.13.10 ity of [place] [facility] 4.2.7.2.686 Bernabe as [phone] [address] 2019-08-13 2019-08-13 Refill [facility] 1.2.840.114 [id number] Univers 00:00:00 00:00:00 Sriram [place] 350.1.13.10 ity of [place] Profess[place] [phone] [address] 2019-08-07 2019-08-07 Refill [facility] 1.2.840.114 [id number] Univers 00:00:00 00:00:00 [facility] 350.1.13.10 ity of [place] 4.2.7.2.686 Bernabe as Professio [phone] [address] 2019-08-04 2019-08-04 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Pc, Adc Vascular Room 1 - [facility] 1.2.840.114 [id number] Univers 10:43:00 11:05:18 Visit Sriram Heath 350.1.13.10 ity of [place].2.[place].2.[place] Profess[place] [phone] [address] 2019-08-04 2019-08-04 Outpatient R [facility] [id number] Univers 11:00:00 11:00:00 ity of [facility] 2019-08-04 2019-08-04 Telephone [facility] 1.2.688.475 [id number] Univers 00:00:00 00:00:00 Sriram Palomo 350.1.13.10 ity of [place] Profess[place] [phone] [address] 2019-08-03 2019-08-03 Refisra GonsalvesNEW [facility]EX[facility] 1.2.840.114 [id number] Univers 00:00:00 00:00:00 [facility] 350.1.13.10 ity of [place] 4.2.7.2.686 Bernabe as Professio [phone] [address] 2019-07-30 2019-07-30 Office [facility] 1.2.840.114 [id number] Univers 13:54:46 14:40:55 Visit Guillelisazechariah [place] 350.1.13.10 ity of [place] 4.2.[place].2.[place] [phone] [place] [address] [facility] 2019-07-30 2019-07-30 Outpatient [facility] [id number] Univers 14:20:00 14:20:00 SRIRAM ity o f [facility] 2019-07-30 2019-07-30 Orders Doctor YANA 1.2.840.114 [id number] Univers 00:00:00 00:00:00 Only Unassigned, CARLOS 350.1.13.10 ity of [place] [facility] 4.2.7.2.686 Bernabe as [phone] [address] 2019-07-17 2019-07-17 Orders Doctor YANA 1.2.840.114 [id number] Univers 00:00:00 00:00:00 Only Unassigned, CARLOS 350.1.13.10 ity of [place] [facility] 4.2.7.2.686 Bernabe as [phone] [address] 2019-07-16 2019-07-16 Telephone [facility] 1.2.840.114 [id number] Univers 00:00:00 00:00:00 [facility] 350.1.13.10 ity of [place] 4.2.7.2.686 Bernabe as Professio [phone] [facility] 044 [facility] One 2019-07-01 2019-07-01 Telephone [facility] 1.2.731.292 [id number] Univers 00:00:00 00:00:00 Guillelisazechariah [place] 350.1.13.10 ity of [place] Profess[place] [phone] [facility] 059 [facility] 2019-06-30 2019-06-30 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[place], Adc Lab Main [facility] 1.2.8 40.114 [id number] Univers 07:52:57 08:07:57 Visit Kumar Sriram Palomo 350.1.13.10 ity of [place] 4.2.[place].2.[place] [phone] [facility] 353 [facility] 2019-06-30 2019-06-30 Outpatient R KUMAR, [facility] [id number] Univers 08:00:00 08:00:00 SRIRAM de oliveira o f [facility] 2019-06-25 2019-06-25 Outpatient R KUMAR, [facility] [id number] Univers 09:40:00 09:40:00 SRIRAM fergusony o [facility] 2019-06-25 2019-06-25 Telemedici KumarNEW [facility] 1.2.840.114 [id number] Univers 08:37:50 08:57:50 ne Visit Sriram [place] 350.1.13.10 ity of [place].2.[place].2.[place] [phone] [facility] 059 [facility] 2019-05-28 2019-05-28 Refisra [facility] 1..840.114 [id number] Univers 00:00:00 00:00:00 [facility] 350.1.13.10 ity of [place] 4.2.7.2.686 Bernabe as Professio [phone] [facility] 044 [facility] 2019-05-25 2019-05-25 [facility] 1..840.114 [id number] Univers 00:00:00 00:00:00 [facility] 350.1.13.10 ity of [place] 4.2.7.2.686 Bernabe as Professio [phone] [address] 2019-05-21 2019-05-21 Outpatient R ALEXUS RAMOS [facility] [id number] Univers 10:00:00 10:00:00 ALEXUS RAMOS ity [facility] 2019-05-20 2019-05-20 Telemgisell HeathNEW MEXICO [facility] 1..840.114 [id number] Univers 13:50:59 14:10:59 ne [facility] [place] 350.1.13.10 it[place] of [place].2.[place].2.[place] Profess[place] [phone] Mi dical nal 059 [facility] 2019-05-20 2019-05-20 Outpatient R KUMAR, [facility] [id number] Univers 13:40:00 13:40:00 QIALISAZECHARIAH ity o f [facility] 2019-05-20 2019-05-20 Telephone [facility] 1.2.840.114 [id number] Univers 00:00:00 00:00:00 [facility] 350.1.13.10 ity of [place] 4.2.7.2.686 Bernabe as Professio [phone] Mi dical nal 044 [place] Office [facility] 2019-05-13 2019-05-13 Telephone [facility] 1.2.402.841 [id number] Univers 00:00:00 00:00:00 Qiangzechariah [place] 350.1.13.10 ity of [place] 4.2.[place].2.[place] [phone] Mi dical nal 059 [facility] 2019-05-09 2019-05-09 Refill [facility] 1.2.840.114 [id number] Univers 00:00:00 00:00:00 [facility] 350.1.13.10 ity of [place] 4.2.7.2.686 Bernabe as Professio [phone] Mi dical nal 044 [place] Office [facility] 2019-05-02 2019-05-02 Telephone [place] [facility] 1.2.840.114 [id number] Univers 00:00:00 00:00:00 [facility] 350.1.13.10 ity of [place] 4.2.7.2.686 Bernabe as Professio [phone] Mi dical nal 044 [place] Office [facility] 2019-05-02 2019-05-02 Telephone CastleNEW [facility] 1.2.188.461 [id number] Univers 00:00:00 00:00:00 Wentong [place] 350.1.13.10 i ty of [place]2.[place].2.[place] [phone] Mi dical nal 220 [facility] 2019-04-30 2019-04-30 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[place], 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 Lab Main [facility] 1.2.8 40.114 [id number] Univers 09:32:20 09:47:20 Visit Sriram Heath 350.1.13.10 ity of [place] 4.2.[place].2.[place] Profess[place] [phone] Mi dical nal 353 [facility] 2019-04-30 2019-04-30 Outpatient [facility] [id number] Univers 09:45:00 09:45:00 SRIRAM fergusony o f [facility] 2019-04-30 2019-04-30 Telephone [facility] 1.2.840.114 [id number] Univers 00:00:00 00:00:00 WonWeSpeke A ORDISSIMO 350.1.13.10 ity of [place] 4.2.7.2.686 Bernabe as Professio [phone] Mi dical nal 044 [facility] One 2019-04-28 2019-04-28 Office [facility] 1.2.840.114 [id number] Univers 13:21:45 14:34:07 Visit Sriram Palomo 350.1.13.10 ity of [place]2.[place].2.[place] [phone] Mi dical nal 059 [facility] 2019-04-28 2019-04-28 Outpatient R KUMAR [facility] [id number] Univers 13:20:00 13:20:00 SRIRAM ity o f [facility] 2019-04-09 2019-04-09 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Luís Coleman Lab Main [facility] 1.2.8 40.114 [id number] Univers 16:15:01 16:30:01 Visit Alexey Castle 350.1.13.10 ity of [place] 4[place]2.[place].2.[place] [phone] Mi dical sathya 353 [facility] 2019-04-09 2019-04-09 Office [facility] 1.2.840.114 [id number] Univers 15:08:31 15:58:05 Visit Alexey De[place] 350.1.13.10 i ty of [place] 4.2.7.2.[place] [phone] Mi dical nal 220 [facility] 2019-04-09 2019-04-09 Orders Doctor YANA 1.2.840.114 [id number] Univers 00:00:00 00:00:00 Only Unassigned, CARLOS 350.1.13.10 ity of [place] [facility] 4.2.7.2.686 Bernabe as [phone] [address] 2019-03-14 2019-03-30 Nurse Visit, [facility] Nurse [facility] 1.2.840.1 14 [id number] Univers 08:39:08 18:06:53 Visit Dago Gross 350.1.13. 10 ity of [place].2.[place].2.[place] [phone] [facility] 059 [facility] 2019-03-28 2019-03-28 Telephone Major [facility] 1.2.840.114 [id number] Univers 00:00:00 00:00:00 [facility] 350.1.13.10 ity of [place] 4.2.7.2.686 Bernabe as Professio [phone] [facility] 044 [facility] 2019-03-24 2019-03-24 Telephone Major [facility] 1.2.840.114 [id number] Univers 00:00:00 00:00:00 Wondiful A Health 350.1.13.10 ity of [place] 4.2.7.2.686 Bernabe as Professio [phone] [facility] 044 [facility] 2019-03-14 2019-03-14 Outpatient R GINNY [facility] [id number] Univers 09:15:00 09:37:46 SENDIL ity of [facility] 2019-03-14 2019-03-14 Orders Doctor YANA 1.2.840.114 [id number] Univers 00:00:00 00:00:00 Only Unassigned, CARLOS 350.1.13.10 ity of [place] [facility] 4.2.7.2.686 Bernabe as [phone] [address] 2019-03-06 2019-03-06 Telephone [facility] 1.2.840.114 [id number] Univers 00:00:00 00:00:00 Wondiful A Health 350.1.13.10 ity of [place] 4.2.7.2.686 Bernabe as Professio [phone] [place] [address] [address] Office Building One 2019-01-27 2019-01-27 Outpatient R KUMAR, [facility] [id number] Univers 14:20:00 14:44:45 SRIRAM fergusony o f [facility] 2019-01-19 2019-01-19 Emergency X MARIO, [facility] ERT [id number] Univers 10:06:29 15:10:00 EVAN de oliveira [facility] 2019-01-06 2019-01-06 Outpatient [facility] [id number] Univers 15:00:00 15:00:00 CLARE de oliveira o f [facility] 2018-12-11 2018-12-11 Outpatient [facility] [id number] Univers 08:45:00 08:45:00 EKATERINA de oliveira [facility] 2018-11-01 2018-11-01 Telephone [facility] 1.2.840.114 [id number] Univers 00:00:00 00:00:00 Wissam HEALTH 350.1.13.10 it y of [facility] 4.2.7.2.686 [facility] [phone] [facility] Primary & 059 [facility] 2018-10-31 2018-10-31 Telephone [facility] 1.2.840.114 [id number] Univers 00:00:00 00:00:00 Wondiful A Health 350.1.13.10 ity of [place] 4.2.7.2.686 Bernabe as Professio [phone] [place] [address] [address] Office Building One 2018-10-30 2018-10-30 Telephone SullivanNEW [facility] 1.2.731.858 [id number] Univers 00:00:00 00:00:00 Madeleine Rica HEALTH 350.1.13.10 ity of [place] 4.2.7.2.686 [facility] [place] [facility] [phone] [facility] & 059 [facility] 2018-10-30 2018-10-30 Telephone [facility] 1.2.840.114 [id number] Univers 00:00:00 00:00:00 Wondiful A Health 350.1.13.10 ity of [place] 4.2.7.2.686 Bernabe as Professio [phone] Mi dical nal 044 [place] Office Building One 2018-10-29 2018-10-29 Office Cookie [facility] 1.2.840.114 [id number] Univers 13:11:56 13:52:23 Visit Emily Health 350.1.13.10 i ty of [place] 4.2.7.2.686 Bernabe as Professio [phone] Mi dical nal 044 [place] Office Building One 2018-10-28 2018-10-29 Office Fac, Adc Heart Failure Cardio [facility] 1.2.840.114 [id number] Univers 15:47:43 12:03:16 Visit Edgar Cortés [place] 350.1 .13.10 ity of [place] 4.2.7.2.686 [facility] Professio [phone] Mi dical nal 059 [facility] 2018-10-28 2018-10-28 Hospital Nate [facility] 1.2.840.114 [id number] Univers 16:46:06 23:59:00 Encounter Madeleine Palomo 350.1.13.10 ity of [place] 4.2.7.2.686 [facility] [place] [phone] [facility] 807 [place] 2018-10-28 2018-10-28 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, 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 [facility] 1.2.840.114 [id number] Univers 16:41:14 16:56:14 Visit Madeleine [place] 350.1.13.10 ity of [place] 4.2.[place].2.[place] [phone] [facility] [address] 2018-10-28 2018-10-28 Orders Doctor YANA 1.2.840.114 [id number] Univers 00:00:00 00:00:00 Only Unassigned, CARLOS 350.1.13.10 ity of [place] [facility] 4.2.7.2.686 Bernabe as [phone] [facility] [address] 2018-10-24 2018-10-24 Cali Dorsey [facility] 1.2.840.114 [id number] Univers 00:00:00 00:00:00 [place] HEALTH 350.1.13.10 it y of [place].2.7.2.686 [place] [phone] [facility] Primary & [facility] 2018-10-14 2018-10-14 Refill Freddy, [facility] 1.2.840.114 [id number] Univers 00:00:00 00:00:00 Min [place] 350.1.13.10 i ty of [place].2.[place] [phone] [address] Building 2018-10-01 2018-10-01 Orders Doctor YANA 1.2.840.114 [id number] Univers 00:00:00 00:00:00 Only Unassigned, CARLOS 350.1.13.10 ity of [place] [facility] 4.2.7.2.686 Bernabe as [phone] [facility] [address]9 [address] 2018-09-26 2018-09-26 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 840.114 [id number] Univers 13:45:07 15:25:16 Visit Major [facility] 350.1.13.1 0 ity of [place] 4.2.7.2.686 Bernabe as Professio [phone] [address] Office Building One 2018-09-26 2018-09-26 Telephone Fac, [facility] 1.2.840.114 [id number] Univers 00:00:00 00:00:00 Heart HEALTH 350.1.13.10 it y of [place].2.7.2.[place] [phone] [facility] & [facility] 2018-09-10 2018-09-10 Office Major [facility] 1.2.840.114 [id number] Univers 12:36:16 13:37:40 Visit Josianeful A Health 350.1.13.10 ity of [place] 4.2.7.2.686 Bernabe as Professio [phone] [address] Office Building One 2018-09-02 2018-09-02 Orders Doctor YANA 1.2.840.114 [id number] Univers 00:00:00 00:00:00 Only Unassigned, CARLOS 350.1.13.10 ity of [place] [facility] 4.2.7.2.686 Bernabe as [phone] [address] Results Test Description Test Time Test Comments Results Result Comments Source POCT GLUCOSE (AUTOMATED) 2022-02-19 18:34:13 Test Item Value Reference Range Interpretation Comme nts POCT GLU (test code = 2275489045) 354 mg/dL 70-110 H Lab Interpretation (test code = 75517-6) [facility] 14:51:34 Test Item Value Reference Range Interpretation Comments POCT GLU (test code = 2539025285) 158 mg/dL 70-110 H Lab Interpretation (test code = Abnormal 59187-6) [facility]2022-02-19 07:09:11 Test Item Value Reference Range Interpretation Comments POCT GLU (test code = 2127128682) 109 mg/dL 70-110 Lab Interpretation (test code = Normal 87014-3) [facility]2022-02-19 06:15:00 Test Item Value Reference Range Interpretation Comments POCT GLU (test code = 4543280344) 56 mg/dL 70-110 L Lab Interpretation (test code = Abnormal 59499-7) [facility]2022-02-19 03:41:03 Test Item Value Reference Range Interpretation Comments POCT GLU (test code = 5003674015) 197 mg/dL 70-110 H Lab Interpretation (test code = Abnormal 29451-4) [facility]2022-02-18 23:17:16 Test Item Value Reference Range Interpretation Comments POCT GLU (test code = 2900513457) 240 mg/dL 70-110 H Lab Interpretation (test code = Abnormal 51750-3) [facility]18 18:24:23 Test Item Value Reference Range Interpretation Comments POCT GLU (test code = 8916188440) 274 mg/dL 70-110 H Lab Interpretation (test code = Abnormal 19799-0) [facility] 18:24:18 Test Item Value Reference Range Interpretation Comments POCT GLU (test code = 9441430946) 92 mg/dL 70-110 Lab Interpretation (test code = Normal 72381-3) [facility] (Total Cholesterol, Triglycerides, HDL) - [id number] 12:27:34 Test Item Value Reference Range Interpretation Comments CHOL (test code = 146 mg/dL 120-200 [id number]) HDL (test code = 54 mg/dL See_Comment [Automated message] [id number]) The system [employer] generated this result transmit luis miguel reference range : >=50. The refer ence range was not u sed to interpret th is result as normal/abnormal . HDLC RATIO (test code = See_Comment [Au tomated message] [id number]) The system [employer] generated this result transmit luis miguel reference range : <=4.5. The refe rence range was not u sed to interpret th is result as normal/abnormal . TRIG (test code = 113 mg/dL 30-170 [id number]) LDL CHOL (test code = 69 mg/dL See_Comment [Auto mated message] 34254-4) The system [employer] generated this result transmit luis miguel reference range : <=160. The refe rence range was not u sed to interpret th is result as normal/abnormal . VLDL (test code = 23 mg/dL 5-60 7564258140) Lab Interpretation (test Normal code = 31713-7) [id number] 12:27:34 Test Item Value Reference Range Interpretation Comments NT-proBNP (test code 83102 pg/mL See_Comment H [Autom ated = 2063690781) message] The system which generated this result transmitted reference range : <=450. The reference range was not used to interpret this result as normal/abnormal . SEN (test code = SEN) Biotin has been reported to cause a negative bias, interpret results relative to patient's use of biotin. Lab Interpretation Abnormal (test code = 65838-9) [facility] (NA, K, CL, CO2, GLUCOSE, BUN, CREATININE, CA)2022-02-18 12:27:14 Test Item Value Reference Range Interpretation Comments NA (test code = 137 mmol/L 135-145 2583315697) K (test code = 4.0 mmol/L 3.5-5.0 9466248998) CL (test code = 104 mmol/L 98-108 2575792225) CO2 TOTAL (test code = 25 mmol/L 23-31 3718042758) AGAP (test code = 2-16 6108797708) BUN (test code = 62 mg/dL 7-23 H 5817038535) GLUCOSE (test code = 90 mg/dL 70-110 5106753259) CREATININE (test code = 2.02 mg/dL 0.50-1.04 H 4201918883) CALCIUM (test code = 8.3 mg/dL 8.6-10.6 L 0702611564) eGFR (test code = mL/min/1.73m2 5759635324) SEN (test code = SEN) Association of [...] tests). Lab Interpretation Abnormal (test code = 36897-6) [facility] WITH [id number] 11:30:43 Test Item Value Reference Range Interpretation [...] RDW-SD (test code = 46.4 fL 39.0-49.9 93401-7) RDW-CV (test code = 13.2 % 12.0-15.5 788-0) PLT (test code = See_Comment [Automated 777-3) message] The sy stem which generated this result transmitted reference range : 166 - 358 10*3/ ?L. The reference r beltran was not used to interpret this result as normal/abnormal . MPV (test code = 13.0 fL 9.5-12.9 H 30526-4) NRBC/100 WBC (test See_Comment [Automat ed code = 9885298364) message] The system which generated this result transmitted reference range : 0.0 - 10.0 /100 WBCs. The refer ence range was not u sed to interpret th is result as normal/abnormal . NRBC x10^3 (test code See_Comment [Auto mated = 5145516885) message] The s ystem which generated this result transmitted reference range : 10*3/?L. The reference range was not used to interpret this result as normal/abnormal . GRAN MAT (NEUT) % 58.4 % (test code = 770-8) IMM GRAN % (test code 0.30 % = 0419854687) LYMPH % (test code = 27.5 % 736-9) MONO % (test code = 9.3 % 5905-5) EOS % (test code = 4.2 % 713-8) BASO % (test code = 0.3 % 706-2) GRAN MAT x10^3(ANC) 3.71 10*3/uL 1.88-7.09 (test code = 8128089875) IMM GRAN x10^3 (test 0.00-0.06 code = 3077188120) LYMPH x10^3 (test code 1.75 10*3/uL 1.32-3.29 = 731-0) MONO x10^3 (test code 0.59 10*3/uL 0.33-0.92 = 742-7) EOS x10^3 (test code = 0.27 10*3/uL 0.03-0.39 711-2) BASO x10^3 (test code 0.01-0.07 = 704-7) Lab Interpretation Abnormal (test code = 18539-5) [facility] GLUCOSE (AUTOMATED)2022-02-18 02:39:08 Test Item Value Reference Range Interpretation Comments POCT GLU (test code = 6945258242) 196 mg/dL 70-110 H Lab Interpretation (test code = Abnormal 82193-8) [facility] GLUCOSE (AUTOMATED)2022-02-17 23:16:54 Test Item Value Reference Range Interpretation Comments POCT GLU (test code = 9557033130) 140 mg/dL 70-110 H Lab Interpretation (test code = Abnormal 26185-9) [facility] 19:44:53 Test Item Value Reference Range Interpretation Comments Height (test code = in 6742160898) Weight (test code = lbs 5433207622) Systolic BP (test code = mmHg 4278245858) Diastolic BP (test code mmHg = 8145729421) Heart Rate (test code = bpm 8900996014) BSA (test code = 1.81 m2 5294677354) Ao root diam (test code 3.30 cm = 4455717371) Aortic root (test code = 3.3 cm 8722809305) Ao root annulus (test 3.3 cm code = 0147851241) LVOT diameter (test code 1.89 cm = 9857386255) LVOT area (test code = 2.80 cm2 6827160477) LAV(MOD-sp4) (test code 52.90 mL = 1387829906) E wave decelartion time 0.17 s (test code = 2500284793) MV stenosis pressure 1/2 51.3 ms time (test code = 4452179527) MV Peak E Mily (test code 95.2 cm/s = 2730955599) MV Peak A Mily (test code 61.8 cm/s = 2279946566) E/A ratio (test code = ratio 1947754577) MV Prop V (test code = 23.30 cm/s 6450780894) MV E/e' septal (test 7.8 cm/s code = 6942891602) TR Peak Mily (test code = 310.8 cm/s 7665738316) Triscuspid Valve mmHg Regurgitation Peak Gradient (test code = 9587714729) Tapse (test code = 1.99 cm 3238964746) LVOT stroke volume (test 40.40 cm3 code = 7166889174) LVOT peak mily (test code 67.8 cm/s = 0953906612) LVOT mn grad (test code mmHg = 6540320081) AV LVOT peak gradient mmHg (test code = 7933104639) LVOT peak VTI (test code 14.4 cm = 7274725853) LV V1 mean (test code = 45.30 cm/s 6632807711) MR max PG (test code = 65.40 mm[Hg] 3243491625) MR max mily (test code = 404.30 cm/s 1045901303) Mr max mily (test code = 404.3 m/s 4750434329) LVIDD (test code = 6.30 cm 2769275108) Left Ventricular End 202.4 mL Diastolic Volume by Teichholz Method (test code = 4229127) IVS (test code = 0.94 cm 8239047999) Interventricular Septum 0.94 cm Diastolic Thickness by 2D (test code = 8771570) LVPWD (test code = 0.94 cm 4340352384) PW (test code = 0.94 cm 0.6-1.9 0331406615) EF(Teich) (test code = 19.10 % 3713797630) LVIDS (test code = 5.80 cm 7032123552) Left Ventricular End 163.8 mL Systolic Volume by Teichholz Method (test code = 3268522) FS (test code = 9 % 4617958198) EF - 2D (test code = 19.10 % 55013755) LA size (test code = 3.5 cm 9365564683) Radiology Study observation (narrative) (test code = 39828-8) SEN (test code = SNE) Table formatting from the original result was [...] mL of Lumason ultrasound enhancing agent used. [facility] GLUCOSE (AUTOMATED)2022-02-17 18:19:03 Test Item Value Reference Range Interpretation Comments POCT GLU (test code = 0472472908) 160 mg/dL 70-110 H Lab Interpretation (test code = Abnormal 83777-9) [facility] GLUCOSE (AUTOMATED)2022-02-17 14:06:55 Test Item Value Reference Range Interpretation Comments POCT GLU (test code = 8078550075) 101 mg/dL 70-110 Lab Interpretation (test code = Normal 78930-9) [facility] GLUCOSE (AUTOMATED)2022-02-17 03:58:48 Test Item Value Reference Range Interpretation Comments POCT GLU (test code = 3433580486) 278 mg/dL 70-110 H Lab Interpretation (test code = Abnormal 12602-7) [facility] GLUCOSE (AUTOMATED)2022-02-17 03:21:46 Test Item Value Reference Range Interpretation Comments POCT GLU (test code = 9809932406) 279 mg/dL 70-110 H Lab Interpretation (test code = Abnormal 55402-0) [facility]2022-02-17 01:58:04 Test Item Value Reference Range Interpretation Comments HGB A1C (test code = 10.0 % 4.0-5.7 H 4548-4) SEN (test code = SEN) Reference RangesNormal: <5.7%Prediabetes: 5.7 - 6.4%Diabetes: > 6.5% Lab Interpretation (test Abnormal code = 31846-9) [facility] [id number] 17:30:57 Test Item Value Reference Interpretation Comments Range TROPONIN I (test 0.028 ng/mL See_Comment [Automated code = 3755307044) message] The system which generated this result [...] biotin. Lab Interpretation Normal (test code = 37447-4) [id number] 17:27:54 Test Item Value Reference Range Interpretation Comments NT-proBNP (test code 10459 pg/mL See_Comment H [Autom ated = 3551769477) message] The system which generated this result transmitted reference range : <=450. The reference range was not used to interpret this result as normal/abnormal . SEN (test code = SEN) Biotin has been reported to cause a negative bias, interpret results relative to patient's use of biotin. Lab Interpretation Abnormal (test code = 64909-4) [facility] (NA, K, CL, CO2, GLUCOSE, BUN, CREATININE, CA)2022-02-16 17:19:15 Test Item Value Reference Range Interpretation Comments NA (test code = 135 mmol/L 135-145 5909989172) K (test code = 4.7 mmol/L 3.5-5.0 5554697186) CL (test code = 104 mmol/L 98-108 1571927800) CO2 TOTAL (test code = 23 mmol/L 23-31 3629520666) AGAP (test code = 2-16 6555788588) BUN (test code = 58 mg/dL 7-23 H 6040289075) GLUCOSE (test code = 260 mg/dL 70-110 H 8352293197) CREATININE (test code = 1.78 mg/dL 0.50-1.04 H 1554469885) CALCIUM (test code = 8.2 mg/dL 8.6-10.6 L 6938889089) eGFR (test code = mL/min/1.73m2 8870751784) SEN (test code = SEN) Association of [...] tests). Lab Interpretation Abnormal (test code = 55814-8) [facility]23[facility] (ALB,T.PRO,BILI T,BU/BC,ALT,AST,ALK PHOS)2022-02-16 17:19:15 Test Item Value Reference Range Interpretation Comments TOTAL BILI (test code = 3519210215) 0.4 mg/dL 0.1-1.1 BILI UNCON (test code = 5417413156) 0.3 mg/dL 0.1-1.1 BILI CONJ (test code = 5967768043) 0.0 mg/dL 0.0-0.3 T PROTEIN (test code = 2888714459) 6.8 g/dL 6.3-8.2 ALBUMIN (test code = 8405797189) 3.8 g/dL 3.5-5.0 ALK PHOS (test code = 1343902790) 146 U/L 34-122 H ALTv (test code = 1742-6) 29 U/L 5-35 AST(SGOT) (test code = 0984792206) 28 U/L 13-40 Lab Interpretation (test code = Abnormal 71960-7) [facility] 17:19:15 Test Item Value Reference Range Interpretation Comments LIPASE (test code = 3676808654) 46 U/L 0-220 Lab Interpretation (test code = Normal 80829-7) [facility] WITH [id number] 17:12:53 Test Item Value Reference Range Interpretation Comments WBC (test code = See_Comment [Automated 6690-2) message] The sy stem which generated this result transmitted reference range : 4.30 - 11.10 10*3/?L. The reference range was not used to interpret this result as normal/abnormal . RBC (test code = See_Comment L [Automated 619-8) message] The sy stem which generated this [...] RDW-SD (test code = 47.8 fL 39.0-49.9 09433-0) RDW-CV (test code = 13.5 % 12.0-15.5 788-0) PLT (test code = See_Comment [Automated 777-3) message] The sy stem which generated this result transmitted reference range : 166 - 358 10*3/ ?L. The reference r beltran was not used to interpret this result as normal/abnormal . MPV (test code = 12.9 fL 9.5-12.9 16853-2) NRBC/100 WBC (test See_Comment [Automat ed code = 2665706280) message] The system which generated this result transmitted reference range : 0.0 - 10.0 /100 WBCs. The refer ence range was not u sed to interpret th is result as normal/abnormal . NRBC x10^3 (test code See_Comment [Auto mated = 0696098161) message] The s ystem which generated this result transmitted reference range : 10*3/?L. The reference range was not used to interpret this result as normal/abnormal . GRAN MAT (NEUT) % 75.4 % (test code = 770-8) IMM GRAN % (test code 0.20 % = 0460112452) LYMPH % (test code = 14.9 % 736-9) MONO % (test code = 7.7 % 5905-5) EOS % (test code = 1.6 % 713-8) BASO % (test code = 0.2 % 706-2) GRAN MAT x10^3(ANC) 6.77 10*3/uL 1.88-7.09 (test code = 2179174324) IMM GRAN x10^3 (test 0.00-0.06 code = 2527159201) LYMPH x10^3 (test code 1.34 10*3/uL 1.32-3.29 = 731-0) MONO x10^3 (test code 0.69 10*3/uL 0.33-0.92 = 742-7) EOS x10^3 (test code = 0.14 10*3/uL 0.03-0.39 711-2) BASO x10^3 (test code 0.01-0.07 = 704-7) Lab Interpretation Abnormal (test code = 12931-8) [facility] HEMOGLOBIN A1C [id number] 15:15:00 Test Item Value Reference Range Interpretation Comments POCT HBA1C (test code = 4548-4) 7.6 % 4-6 A Lab Interpretation (test code = Abnormal 84197-8) [facility] HEMOGLOBIN A1C [id number] 15:15:00 Test Item Value Reference Range Interpretation Comments POCT HBA1C (test code = 4548-4) 7.6 % 4-6 A Lab Interpretation (test code = Abnormal 35172-4) [facility]
[2022-10-20] MEDS ORDERED: ACETAMINOPHEN 325 MG TABLET ONE (12:04)
--- NOTE | 2022-10-20 12:27 | RAD REPORT ---
EXAM DESCRIPTION: CT - CTHCSPWOC - 10/20/2022 12:03 pm CLINICAL HISTORY: fall;Headache COMPARISON: C Spine Wo Con dated 08/02/2022; Head C Spine Mpr Wo Con dated 06/16/2022 TECHNIQUE: Axial thin cut noncontrast CT images of the head were obtained. Axial thin cut noncontrast CT images of the cervical spine were obtained. Multiplanar reformatted images were generated and reviewed. All CT scans are performed using dose optimization technique as appropriate and may include automated exposure control or mA/KV adjustment according to patient size. FINDINGS: CT HEAD WITHOUT CONTRAST: No acute hemorrhage, hydrocephalus or extra-axial collection is identified.Right basal frontal and le ft high frontal parenchymal calcifications are again seen. Mild diffuse parenchymal volume loss, stab le. 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 .No areas of brain edema or midline shift. The paranasal sinuses and mastoids are clear.The calvarium is intact. CT CERVICAL SPINE WITHOUT CONTRAST: No fracture or subluxation.No prevertebral soft tissues swelling is identified. IMPRESSION: No acute traumatic intracranial or cervical spine findings. Stable chronic findings as above.
--- NOTE | 2022-10-20 12:45 | EDPHYS ---
Physician Documentation [facility] Name: Teena Simpson Age: 77 yrs Sex: Female : 1945 Arrival Date: 10/20/2022 Time: 11:36 Bed 20 Private MD: ED Physician aDvid Fields HPI: 10/20 11:55 This 77 yrs old Female presents to ER via Ambulatory with complaints of Fall cp Injury. 11:55 Details of fall: The patient fell from an upright position, while standing. Onset: The cp symptoms/episode began/occurred 5 day(s) ago. Associated injuries: The patient sustained injury to the head, contusion. Daughter reports patient lost her balance and fell striking back of head this past Sunday. no LOC. Referred to ED by pcp for evaluation. Patient reports right arm pain is not new and no change since fall. Historical: - Allergies: 12:04 Augmentin; nj1 12:04 Cipro; nj1 12:04 Keppra; nj1 - PMHx: 12:04 Anxiety; Atrial Fib; CHF; Diabetes - IDDM; High Cholesterol; Hypertension; Kidney nj1 failure stage 4; Low HR; Myocardial infarction; neuropathy; Seizures; - PSHx: 12:04 Appendectomy; Hemorrhoidectomy; Pacemaker-Defib; nj1 - Immunization history:: Client reports receiving the 2nd dose of the Covid vaccine. - Social history:: Smoking status: Patient denies any tobacco usage or history of. ROS: 12:00 Constitutional: Negative for body aches, chills, fever, poor PO intake. cp 12:00 Eyes: Negative for injury, pain, redness, and discharge. cp 12:00 Neck: Positive for tenderness, Negative for pain at rest, stiffness. 12:00 Cardiovascular: Negative for chest pain, edema, palpitations. 12:00 Respiratory: Negative for cough, shortness of breath, wheezing. 12:00 Abdomen/GI: Negative for abdominal pain, nausea, vomiting, and diarrhea. 12:00 : Negative for urinary symptoms. 12:00 Neuro: Positive for headache, Negative for altered mental status, loss of consciousness, syncope, weakness. 12:00 All other systems are negative. Exam: 12:05 Constitutional: The patient appears in no acute distress, alert, awake, cp non-diaphoretic, non-toxic, well developed, well nourished. 12:05 Head/face: Noted is swelling, of the absent, tenderness, that is mild, of the left cp occipital area and right occipital area. 12:05 Eyes: Periorbital structures: appear normal, Pupils: equal, round, and reactive to light and accomodation, Extraocular movements: intact throughout, Conjunctiva: normal, no exudate, no injection, Sclera: no appreciated abnormality, Lids and lashes: appear normal, bilaterally. 12:05 ENT: External ear(s): are unremarkable, Nose: is normal, Mouth: Lips: moist, Oral mucosa: pink and intact, moist, Posterior pharynx: is normal, airway is patent, no erythema, no exudate. 12:05 Neck: C-spine: vertebral tenderness, is not appreciated, crepitus, is not appreciated, ROM/movement: pain, is not appreciated, limited range of motion, is not appreciated, nuchal rigidity, is not appreciated. 12:05 Chest/axilla: Inspection: normal, Palpation: is normal, no crepitus, no tenderness. 12:05 Cardiovascular: Rate: normal. 12:05 Respiratory: the patient does not display signs of respiratory distress, Respirations: normal, no use of accessory muscles, no retractions, labored breathing, is not present, Breath sounds: are clear throughout, no decreased breath sounds, no stridor, no wheezing. 12:05 Abdomen/GI: Inspection: abdomen appears normal, Palpation: abdomen is soft and non-tender, in all quadrants. 12:05 Back: pain, is absent, ROM is normal. 12:05 Neuro: Orientation: to person, place \T\ time. Mentation: is normal, Motor: moves all fours, strength is normal, Sensation: no obvious gross deficits. 12:05 Musculoskeletal/extremity: Exam is negative for decreased range of motion, deformity, cp injury. Vital Signs: 11:46 BP 119 / 70; Pulse 91; Resp 18; Temp 97.9; Pulse Ox 100% ; bc6 11:50 Weight 77.56 kg; Height 5 ft. 0 in. ; nj1 12:58 BP 115 / 71; Pulse 84; Resp 18; Pulse Ox 100% on R/A; mb9 11:50 Body Mass Index 33.40 (77.56 kg, 152.4 cm) nj1 MDM: 11:46 Patient medically screened. cp 12:44 Data reviewed: vital signs, nurses notes, radiologic studies, CT scan. cp 12:44 Differential diagnosis: closed head injury, contusion, fracture, laceration, multiple cp trauma. I considered the following discharge prescriptions or medication management in the emergency department Medications were administered in the Emergency Department. See MAR. Historians other than the Patient: Daughter/Son: daughter assists with HPI. Counseling: I had a detailed discussion with the patient and/or guardian regarding the historical points, exam findings, and any diagnostic results supporting the discharge/admit diagnosis, radiology results, to return to the emergency department if symptoms worsen or persist or if there are any questions or concerns that arise at home. Special discussion: Based on the patient's history, exam and DX evaluation, there is no indication for emergent intervention or inpatient TX. It is understood by the patient/guardian that if the SXs persist or worsen they need to return immediately for re-evaluation. 10/20 11:50 Order name: CT Head C Spine cp Administered Medications: 12:10 Drug: Acetaminophen PO 650 mg Route: PO; mb9 12:58 Follow up: Response: No adverse reaction mb9 Disposition Summary: 10/20/22 12:45 Discharge Ordered Location: Home cp Problem: new cp Symptoms: have improved cp Condition: Stable cp Diagnosis - Contusion of unspecified part of head, initial encounter cp Followup: cp - With: Private Physician - When: 1 - 2 days - Reason: Worsening of condition Discharge Instructions: - Discharge Summary Sheet cp - Facial or Scalp Contusion cp - Head Injury, Adult cp Forms: - Medication Reconciliation Form cp - Thank You Letter cp - Antibiotic Education cp - Prescription Opioid Use cp - Patient Portal Instructions cp - Leadership Thank You Letter cp Addendum: 10/23/2022 06:59 Co-signature as Attending Physician, David Fields MD I reviewed the patient's care r n provided by the Advanced Practice Provider and agree with the diagnosis and treatment plan. Signatures: Dispatcher [employer] David Chowdhury MD MD rn Page, Corey, PA PA cp Breneman, Mary Beth RN RN mb9 Arianna Dozier RN RN nj1
--- NOTE | 2022-10-20 12:45 | ER ---
Nurse's Notes [facility] Name: Teena Simpson Age: 77 yrs Sex: Female : 1945 Arrival Date: 10/20/2022 Time: 11:36 Bed 20 Private MD: Diagnosis: Contusion of unspecified part of head, initial encounter Presentation: 10/20 11:50 Chief complaint: Patient states: Instructed by her doctor to come to ED to get checked. nj1 Pt had fallen on Sunday, has right arm pain since before the fall, not different. States she did hit her head and is on blood thinners (eliquis) but denies any pain or other symptoms. 11:50 Method Of Arrival: Ambulatory [facility] 11:50 Coronavirus screen: Vaccine status: Patient reports receiving the 2nd dose of the covid nj1 vaccine. Ebola Screen: Patient denies travel to an Ebola-affected area in the 21 days before illness onset. Initial Sepsis Screen: Does the patient meet any 2 criteria? No. Patient's initial sepsis screen is negative. Does the patient have a suspected source of infection? No. Patient's initial sepsis screen is negative. Risk Assessment: Do you want to hurt yourself or someone else? Patient reports no desire to harm self or others. Onset of symptoms was October 15, 2022. 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 - Social history:: Smoking status: Patient denies any tobacco usage or history of. Screenin:11 [facility] ED Fall Risk Assessment (Adult) History of falling in the last 3 months, mb9 including since admission Yes- single mechanical fall (1 pt) Confusion or Disorientation No (0 pts) Intoxicated or Sedated No (0 pts) Impaired Gait No (0 pts) Mobility Assist Device Used No (0 pt) Altered Elimination No (0 pt) Score/Fall Risk Level 0 - 2 = Low Risk Oriented to surroundings, Maintained a safe environment, Educated pt \T\ family on fall prevention, incl call for assistance when getting out of bed. Abuse screen: Denies threats or abuse. Nutritional screening: No deficits noted. Tuberculosis screening: No symptoms or risk factors identified. Assessment: 12:10 General: Appears in no apparent distress. Behavior is calm, cooperative. Pain: mb9 Complains of pain in right arm Quality of pain is described as throbbing, Aggravated by increased activity. Neuro: Geller Agitation-Sedation Scale (RASS): 0 - Alert and Calm Level of Consciousness is awake, alert, obeys commands, Oriented to person, place, time, situation, Appropriate for age Pupils are PERRLA. Respiratory: Airway is patent Respiratory effort is even, unlabored, Respiratory pattern is regular, symmetrical. Derm: Skin is pink, warm \T\ dry. Musculoskeletal: Range of motion: intact in all extremities. 12:58 Reassessment: No changes from previously documented assessment. Patient and/or family mb9 updated on plan of care and expected duration. Pain level reassessed. Patient is alert, oriented x 3, equal unlabored respirations, skin warm/dry/pink. Vital Signs: 11:46 BP 119 / 70; Pulse 91; Resp 18; Temp 97.9; Pulse Ox 100% ; bc6 11:50 Weight 77.56 kg; Height 5 ft. 0 in. ; nj1 12:58 BP 115 / 71; Pulse 84; Resp 18; Pulse Ox 100% on R/A; mb9 11:50 Body Mass Index 33.40 (77.56 kg, 152.4 cm) [facility] ED Course: 11:38 Patient arrived in ED. mg5 11:39 Luis Alberto Orozco PA is PHCP. cp 11:39 David Fields MD is Attending Physician. cp 11:51 Marisela Choi RN is Primary Nurse. mb9 12:04 CT Head C Spine In Process Unspecified. EDMS 12:04 Triage completed. nj1 12:05 Arm band placed on. nj1 12:11 Bed in low position. Call light in reach. Side rails up X 1. Client placed on mb9 continuous cardiac and pulse oximetry monitoring. NIBP monitoring applied. 12:59 No provider procedures requiring assistance completed. Patient did not have IV access mb9 during this emergency room visit. Administered Medications: 12:10 Drug: Acetaminophen PO 650 mg Route: PO; mb9 12:58 Follow up: Response: No adverse reaction mb9 Medication: 12:11 VIS not applicable for this client. mb9 Outcome: 12:45 Discharge ordered by . primitivo 12:58 Discharged to home ambulatory. mb9 12:58 Condition: stable 12:58 Discharge instructions given to patient, Instructed on discharge instructions, follow up and referral plans. Demonstrated understanding of instructions, follow-up care. 12:59 Patient left the ED. mb9 Signatures: Dispatcher [employer] EDMS Luis Alberto Orozco PA PA cp Breneman, Mary Beth RN RN mb9 Sonya Leong 6 Arianna Dozier RN RN nj1 Mckayla Rojas mg5
[2022-10-20 13:43] VITALS: TEMP 97.9; O2SAT 100
[2022-10-20 13:44] VITALS: BP 115/71
== END 2022-10-20 12:59 | disposition home or self-care (01) ==
LOC: ER 11:36
DX: S00.83XA Contusion of other part of head, initial encounter (principal); M79.601 Pain in right arm; I12.9 Hypertensive chronic kidney disease with stage 1 through stage 4 chronic kidney disease, or unspecified chronic kidney disease; N18.4 Chronic kidney disease, stage 4 (severe); Z88.1 Allergy status to other antibiotic agents; Z95.810 Presence of automatic (implantable) cardiac defibrillator
CPT/HCPCS: 70450; 72125; 99283

== ENCOUNTER 2022-11-08 18:36 | Emergency (ER) | payer OTHER ==
--- OUTSIDE RECORDS SUMMARY | 2022-11-08 18:46 | XMS REPORT | Continuity of Care Document ---
:1945 Author Organization [facility] [place] t Address [address] [place] [address] [address] [place] [address] Care Team Providers Name Role Phone CAMRON ARIAS Primary Care Physician Unavailable Elaine Lamb Attending Clinician Unavailable FAM CRAIG Attending Clinician Unavailable SILVERIO ADAM Attending Clinician Unavailable SRIRAM HEATH Attending Clinician Unavailable Kumar SQUIRES, Sriram Attending Clinician Doctor Unassigned, [place] Attending Clinician Unavailable 2, [facility] Attending [...] IBIKUNLE, FOLUSHO F Attending Clinician Unavailable Ibikunle HANDBAG FRAMER, Folusho F Attending Clinician Major SQUIRES, Clare Combs Attending Clinician CLARE GONSALVES Attending Clinician Unavailable Tommy BURK, Luis Alberto Attending Clinician Unavailable Mitchell Garcia MD Attending Clinician Po, [facility] Main Attending Clinician Unavailable Willian SQUIRES, Ortega Lester Attending Clinician [phone] ORTEGA DORSEY Attending Clinician Unavailable Cielo Bautista [...] GRAMM, SHANTEL A Attending Clinician Unavailable Gramm HANDBAG FRAMER, Shantel A Attending Clinician Sabina Barba MD Attending Clinician SABINA BARBA Attending Clinician Unavailable Ericka Chen Attending Clinician ERICKA ACKERMAN Attending Clinician Unavailable Lab, Ang - Db Attending Clinician Unavailable VIRI PRICE Attending Clinician Unavailable Lab, [facility] Fam Pob I Attending Clinician Unavailable Jose HANDBAG FRAMER, Karla Attending Clinician Dee HANDBAG FRAMER, Viri Martinez Attending Clinician Teri Samano RN Attending Clinician Unavailable ERICH PANTOJA Attending Clinician Unavailable Pacemaker/Icd, [facility] Attending Clinician Unavailable Omole HANDBAG FRAMER, Min Godinez Attending Clinician [phone] OMOLE, MIN GRETCHEN Attending Clinician Unavailable Nita Degroot DO Attending Clinician NITA DEGROOT Attending Clinician Unavailable NITA DEGROOT Attending Clinician Unavailable Provider, [facility] Attending Clinician Unavailable Anedevante HANDBAG FRAMER, Monica Attending Clinician MONICA MCCORMICK Attending Clinician Unavailable Calli BURK, Jo More Attending Clinician Unavailable Kirt hTomason DO Attending Clinician Gab Servin MD Attending Clinician GAB SERVIN Attending Clinician Unavailable Cielo Henry RN Attending Clinician Fam Craig MD Attending Clinician [phone] Edgar Cortés MD Attending Clinician [phone] EDGAR CORTÉS Attending Clinician Unavailable Lubna Lal MD Attending Clinician LUBNA LAL Attending Clinician Unavailable , [facility] Echo Room 1 - Attending Clinician Unavailable Visit, [facility] Nurse Attending Clinician Unavailable Dago Gross MDHKaren Attending Clinician Pc, [facility] Vascular Room 1 - Attending Clinician Unavailable ALEXUS RAMOS Attending Clinician Unavailable ALEXUS RAMOS Attending Clinician Unavailable DAGO GROSSHKaren Attending Clinician Unavailable EVAN MARTIN Attending Clinician Unavailable EKATERINA BOUDREAUX Attending Clinician Unavailable Nate HANDBAG FRAMER, Madeleine Strauss Attending Clinician Emily Lezama Attending Clinician [facility], Adc Heart Failure Cardio [...] Effective Date Expiration Date Lucy toribio BLAKE/SANDRA [id number] 2019 MEDICARE ADVANTAGE 00:00:00 HUMANA CHOICE [id number] 2022 00:00:00 Problems Condition Condition Condition Status Onset Resolution Last Treating Co mments Source Name Details Category Date Date Treatment Clinician Date Pulmonary Pulmonary Disease Active 2021-02 Uni vers hypertensi hypertensi 2-31 it y of on on 00:00: [address] Branch Presence Presence Disease Active 2021-02 Unive rs of cardiac of cardiac 2-30 it y of resynchron [place]ynchron [place] 00 Medical therapy therapy Branch 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) SOB SOB Disease Active 2021-02 Univers (shortness (shortness 2-29 it y of of breath) of breath) [place]: [place] 00 [place] Atrial Atrial Disease Active Univers tachycardi tachycardi 2-25 it y of a a 00:00: [address] Branch Dizziness Dizziness Disease Active Uni [...] Added automatic ally from request for surgery [id number] Refusal of Refusal of Disease Active 2020-02 U nivers blood blood 2-13 ity of transfusio transfusio 00:[place] as ns as 00 Medical patient is patient is Br anch [employer] Osteopenia Osteopenia Disease Active 2020-02 U [...] colon 5-03 ity of polyps polyps 00:00: [address] Branch History of History of Disease Active U nivers pulmonary pulmonary 2-17 ity of embolism embolism 00:00: [place] [facility] Branch ICD ICD Disease Active Univers (implantab (implantab 2-17 it y of le le 00:00: [place] cardiovert cardiovert 00 Me dical er-defibri er-defibri Br anch llator) in llator) in place place Atrial Atrial Disease Active Univers fibrillati fibrillati 1-16 it y of on on 00:00: [address] Branch Syncope Syncope Disease Active Univers 1-15 ity of 00:00: [place] [facility] Branch DM DM Disease Active Univers (diabetes (diabetes 8-31 ity of mellitus), mellitus), [place] type 2 type 2 00 Medical with renal with renal Br anch complicati complicati ons ons Anxiety Anxiety Disease Active Univers ity of [facility] CKD CKD Disease Active Univers (chronic (chronic ity of kidney kidney [place] disease) disease) Medica l stage 4, stage 4, Branch GFR 15-29 GFR 15-29 ml/min ml/min Epilepsy Epilepsy Disease Active Unive rs ity of [facility] Esophageal Esophageal Disease Active U nivers reflux reflux ity of [facility] HLD HLD Disease Active Univers (hyperlipi (hyperlipi it y of demia) demia) [facility] HTN HTN Disease Active Univers (hypertens (hypertens it y of ion) ion) [place] [facility] Non-ischem Non-ischem Disease Active U [...] tobacco Passive smoker Un iversity of use [place] [facility] History SDOH University o f Alcohol Std Drinks [place] [facility] History SDOH University o f Alcohol Binge [place] [facility] al Branch History SDOH Social Unive rsity of Connections [facility] Med ical Together Branch History SDOH Social Unive rsity of Connections [facility] Medical Branch History SDOH Social Unive rsity of Connections [place] [facility] Membership Branch History SDOH Social Unive rsity of [facility] Medical Meetings Branch Exposure to 2022-03-12 2022-03-22 Not sure University of SARS-CoV-2 (event) 00:00:00 07:50:00 [facility] [place] [facility] Branch Alcohol intake 2022-03-14 2022-03-14 Current University of 00:00:00 00:00:00 non-drinker of [facility] alcohol Branch (finding) History SDOH 2022-02-17 2022-02-17 1 University o f Alcohol Frequency 00:00:00 00:00:00 [facility] edical Branch History SDOH Social 2022-02-17 2022-02-17 5 Unive rsity of Connections Phone 00:00:00 00:00:00 [facility] edical Branch History SDWI Social 2022-02-17 2022-02-17 98 Unive rsity of Connections Living 00:00:00 00:00:00 [place] [facility] Branch History SDOH 2022-02-17 2022-02-17 7 University o f Physical Activity 00:00:00 00:00:00 [facility] edical DPW Branch History SDWI 2022-02-17 2022-02-17 1 University o f Physical Activity 00:00:00 00:00:00 [place] M edical MPS Branch History SDWI 2022-02-17 2022-02-17 5 University o f Financial 00:00:00 00:00:00 [place] [facility] Branch History SDOH Food 2022-02-17 2022-02-17 1 Univers ity of Worry 00:00:00 00:00:00 [place] [facility] History SDOH Food 2022-02-17 2022-02-17 1 Univers ity of Scarcity 00:00:00 00:00:00 [place] [facility] Branch History SDWI 2022-02-17 2022-02-17 2 University o f Transport Med 00:00:00 00:00:00 [place] Medic al Branch History [facility] 2022-02-17 2022-02-17 2 University o f Transport Non-Med 00:00:00 00:00:00 [facility] edical Branch Tobacco use and 2022-02-16 2022-02-16 Smokeless Universit y of exposure 00:00:00 00:00:00 tobacco non-user [facility] dical Branch Tobacco Comment 2022-02-16 2022-02-16 exposed to "a Univer sity of 00:00:00 00:00:00 lot" of passive [place] Med ical smoke from Branch Sex [birth year] Universit y of 00:00:00 00:00:00 [facility] Smoking Status Start Date Stop Date Source Never smoked tobacco [facility] Medications Ordered Filled Start Stop Current Ordering Indication Dosage Frequency Signature Comments Components Source Medication Medication Date Date Medication? Clinician (SIG) Name Name metoprolol Yes [id number] 50mg Take 1 Univers succinate 2-07 tablet by ity o f XL 50 mg 24 00:00: mouth 2 [place] hr tablet 00 (two) Medical times Branch daily. amiodarone Yes [id number] 200mg Take 1 Univers 200 mg 1-26 tablet by ity of tablet 00:00: mouth [place] 00 daily. Medical Branch amiodarone Yes [id number] 200mg Take 1 Univers 200 mg 1-26 tablet by ity of tablet 00:00: mouth [place] 00 daily. Medical Branch amiodarone Yes [id number] 200mg Take 1 Univers 200 mg 1-26 tablet by ity of tablet 00:00: mouth [place] 00 daily. Medical Branch amiodarone Yes [id number] 200mg Take 1 Univers 200 mg 1-26 tablet by ity of tablet 00:00: mouth [place] 00 daily. Medical Branch amiodarone Yes [id number] 200mg Take 1 Univers 200 mg 1-26 [...] at 6am and 6pm furosemide 2022- Yes [id number] 40mg Take 1 Univers 40 mg 1-10 tablet by ity of tablet 00:00: mouth [place] 00 every Medical morning Branch and evening. metoprolol Yes [id number] 50mg Take 1 Univers succinate 1-10 tablet by ity o f XL 50 mg 24 00:00: mouth 2 [place] hr tablet 00 (two) Medical times Branch daily. apixaban Yes 1358 2.5mg Take 1 Univer s (ELIQUIS) 1-10 tablet by ity o f 2.5 mg 00:00: mouth 2 [place] tablet 00 (two) Medical times Branch daily. Indication s: atrial fibrillati on furosemide Yes [id number] 40mg Take 1 Univers 40 mg 1-10 tablet by ity of tablet 00:00: mouth [place] 00 every Medical morning Branch and evening. metoprolol 2022-0 Yes [id number] 50mg Take 1 Univers succinate 1-10 tablet [...] s: atrial fibrillati on furosemide 0 Yes [id number] 40mg Take 1 Univers 40 mg 1-10 tablet by ity of tablet 00:00: mouth [place] 00 every Medical morning Branch and evening. metoprolol 2022-0 Yes [id number] 50mg Take 1 Univers succinate 1-10 tablet [...] s: atrial fibrillati on furosemide 0 Yes [id number] 40mg Take 1 Univers 40 mg 1-10 tablet by ity of tablet 00:00: mouth [place] 00 every Medical morning Branch and evening. metoprolol 2022-0 Yes [id number] 50mg Take 1 Univers succinate 1-10 tablet [...] s: atrial fibrillati on furosemide 2022-0 Yes [id number] 40mg Take 1 Univers 40 mg 1-10 tablet by ity of tablet 00:00: mouth [place] 00 every Medical morning Branch and evening. metoprolol 2022-0 Yes [id number] 50mg Take 1 Univers succinate 1-10 tablet [...] s: atrial fibrillati on furosemide 2022-0 Yes [id number] 40mg Take 1 Univers 40 mg 1-10 tablet by ity of tablet 00:00: mouth [place] 00 every Medical morning Branch and evening. metoprolol 2022-0 Yes [id number] 50mg Take 1 Univers succinate 1-10 tablet [...] s: atrial fibrillati on furosemide 2022-0 Yes [id number] 40mg Take 1 Univers 40 mg 1-10 tablet by ity of tablet 00:00: mouth [place] 00 every Medical morning Branch and evening. metoprolol 2022-0 Yes [id number] 50mg Take 1 Univers succinate 1-10 tablet [...] s: atrial fibrillati on furosemide 2022-0 Yes [id number] 40mg Take 1 Univers 40 mg 1-10 tablet by ity of tablet 00:00: mouth [place] 00 every Medical morning Branch and evening. apixaban 2022-0 Yes 1358 2.5mg Take 1 Univer s (ELIQUIS) 1-10 tablet by ity o f 2.5 mg 00:00: mouth 2 [place] tablet 00 (two) Medical times Branch daily. Indication s: atrial fibrillati on furosemide 2023-0 Yes [id number] 40mg Take 1 Univers 40 mg 1-10 tablet by ity of tablet 00:00: mouth [place] 00 every Medical morning Branch and evening. apixaban Yes 1358 2.5mg Take 1 Univer s (ELIQUIS) 1-10 tablet by ity o f 2.5 mg 00:00: mouth 2 [place] tablet 00 (two) Medical times Branch daily. Indication s: atrial fibrillati on metoprolol 202- No [id number] 50mg Take 1 Univers succinate 1-10 02-06 tablet by ity of XL 50 mg 24 00:00: 00:00 mouth 2 [place] hr tablet 00 :00 (two) Medical times Branch daily. insulin NPH Yes [id number] 20U inject 20 Univers 100 unit/mL 1-02 Units ity of injection 00:00: under the [place] 00 skin every Medical morning. Branch insulin NPH Yes [id number] 20U inject 20 Univers 100 unit/mL 1-02 Units ity of injection 00:00: under the [place] 00 skin every Medical morning. Branch insulin NPH Yes [id number] 20U inject 20 Univers 100 unit/mL 1-02 Units ity of injection 00:00: under the [place] 00 skin every Medical morning. Branch insulin NPH Yes [id number] 20U inject 20 Univers 100 unit/mL 1-02 Units ity of injection 00:00: under the [place] 00 skin every Medical morning. Branch insulin NPH Yes [id number] 20U inject 20 Univers 100 unit/mL 1-02 Units ity of injection 00:00: under the [place] 00 skin every Medical morning. Branch insulin NPH Yes [id number] 20U inject 20 Univers 100 unit/mL 1-02 Units ity of injection 00:00: under the [place] 00 skin every Medical morning. Branch insulin NPH Yes [id number] 20U inject 20 Univers 100 unit/mL 1-02 Units ity of injection 00:00: under the [place] 00 skin every Medical morning. Branch insulin NPH Yes [id number] 20U inject 20 Univers 100 unit/mL 1-02 Units ity of injection 00:00: under the [place] 00 skin every Medical morning. Branch insulin NPH 2022-0 Yes [id number] 20U inject 20 Univers 100 unit/mL 1-02 Units ity of injection 00:00: under the [place] 00 skin every Medical morning. Branch insulin NPH 2022-0 Yes [id number] 20U inject 20 Univers 100 unit/mL 1-02 Units ity of injection 00:00: under the [place] 00 skin every Medical morning. Branch insulin NPH 2022-0 Yes [id number] 20U inject 20 Univers 100 unit/mL 1-02 [...] 03:00: First dose [place] 00 on Sat [facility] 02/18/22 Branch at 2100, Until Discontinu ed, Routine insulin NPH 2022-0 Yes [id number] 15U inject 15 Univers 100 unit/mL 1-01 Units ity of injection 00:00: under the [place] 00 skin at Medical bedtime. Branch polyethylen 2022-0 Yes [id number] 17g Take 1 Univers e glycol 1- Packet by ity of 3350 17 00:00: mouth [place] gram powder 00 every 24 Medi sandra (twenty-fo Branch ur) hours as needed for Constipati on. insulin NPH 2022-0 Yes [id number] 15U inject 15 Univers 100 unit/mL 1-01 Units ity of injection 00:00: under the [place] 00 skin at Medical bedtime. Branch polyethylen 0 Yes [id number] 17g Take 1 Univers e glycol 1-01 Packet by ity of 3350 17 00:00: mouth [place] gram powder 00 every 24 Medi sandra (twenty-fo Branch ur) hours as needed for Constipati on. insulin NPH Yes [id number] 15U inject 15 Univers 100 unit/mL 1-01 Units ity of injection 00:00: under the [place] 00 skin at Medical bedtime. Branch polyethylen 0 Yes [id number] 17g Take 1 Univers e glycol 1-01 Packet by ity of 3350 17 00:00: mouth [place] gram powder 00 every 24 Medi sandra (twenty-fo Branch ur) hours as needed for Constipati on. insulin NPH Yes [id number] 15U inject 15 Univers 100 unit/mL 1-01 Units ity of injection 00:00: under the [place] 00 skin at Medical bedtime. Branch polyethylen 0 Yes [id number] 17g Take 1 Univers e glycol 1-01 Packet by ity of 3350 17 00:00: mouth [place] gram powder 00 every 24 Medi sandra (twenty-fo Branch ur) hours as needed for Constipati on. insulin NPH Yes [id number] 15U inject 15 Univers 100 unit/mL 1-01 Units ity of injection 00:00: under the [place] 00 skin at Medical bedtime. Branch polyethylen 0 Yes [id number] 17g Take 1 Univers e glycol 1-01 Packet by ity of 3350 17 00:00: mouth [place] gram powder 00 every 24 Medi sandra (twenty-fo Branch ur) hours as needed for Constipati on. insulin NPH Yes [id number] 15U inject 15 Univers 100 unit/mL 1-01 Units ity of injection 00:00: under the [place] 00 skin at Medical bedtime. Branch polyethylen 0 Yes [id number] 17g Take 1 Univers e glycol 1-01 Packet by ity of 3350 17 00:00: mouth [place] gram powder 00 every 24 Medi sandra (twenty-fo Branch ur) hours as needed for Constipati on. insulin NPH Yes [id number] 15U inject 15 Univers 100 unit/mL 1-01 Units ity of injection 00:00: under the [place] 00 skin at Medical bedtime. Branch polyethylen 2022-0 Yes [id number] 17g Take 1 Univers e glycol 1-01 Packet by ity of 3350 17 00:00: mouth [place] gram powder 00 every 24 Medi sandra (twenty-fo Branch ur) hours as needed for Constipati on. insulin NPH 2022-0 Yes [id number] 15U inject 15 Univers 100 unit/mL 1-01 Units ity of injection 00:00: under the [place] 00 skin at Medical bedtime. Branch polyethylen 2022-0 Yes [id number] 17g Take 1 Univers e glycol 1-01 Packet by ity of 3350 17 00:00: mouth [place] gram powder 00 every 24 Medi sandra (twenty-fo Branch ur) hours as needed for Constipati on. insulin NPH 2022-0 Yes [id number] 15U inject 15 Univers 100 unit/mL 1-01 Units ity of injection 00:00: under the [place] 00 skin at Medical bedtime. Branch polyethylen 2022-0 Yes [id number] 17g Take 1 Univers e glycol 1-01 Packet by ity of 3350 17 00:00: mouth [place] gram powder 00 every 24 Medi sandra (twenty-fo Branch ur) hours as needed for Constipati on. insulin NPH 2022-0 Yes [id number] 15U inject 15 Univers 100 unit/mL 1-01 Units ity of injection 00:00: under the [place] 00 skin at Medical bedtime. Branch polyethylen 2022-0 Yes [id number] 17g Take 1 Univers e glycol 1-01 Packet by ity of 3350 17 00:00: mouth [place] gram powder 00 every 24 Medi sandra (twenty-fo Branch ur) hours as needed for Constipati on. insulin NPH 2022-0 Yes [id number] 15U inject 15 Univers 100 unit/mL 1-01 Units ity of injection 00:00: under the [place] 00 skin at Medical bedtime. Branch polyethylen 2022-0 Yes [id number] 17g Take 1 Univers e glycol 1-01 Packet by ity of 3350 17 00:00: mouth [place] gram powder 00 every 24 Medi sandra (twenty-fo Branch ur) hours as needed for Constipati on. furosemide 2022- No [id number] 40mg Take 1 Univers 40 mg 02-19 tablet by ity of tablet 00:00: 05:59 mouth [place] 00 :00 every Medical morning Branch and evening for 30 days. furosemide 2022- No [id number] 40mg Take 1 Univers 40 mg 02-19 tablet by ity of tablet 00:00: 05:59 mouth [place] 00 :00 every Medical morning Branch and evening for 30 days. furosemide 2022- No [id number] 40mg Take 1 Univers 40 mg 02-19 tablet by ity of tablet 00:00: 00:00 mouth [place] 00 :00 every Medical morning Branch and evening for 30 days. furosemide 2022- No [id number] 40mg Take 1 Univers 40 mg 02-19 [...] Until Discontinu ed, Routine sulfur 2021-02- No [id number] 5mL 5 mL, Un araseli hexafluorid 02-17 9103 Intravenou i ty of e microsphr 15:00: 15:00 s, ONCE, 1 [place] (LUMASON) 00 :00 dose, On Medica l injection 5 Sun Branch mL 02/17/22 at 0900, Routine
produce service team member approving Restricted medication : KUMARSRIRAM polyethylen 2021-02 Yes 17g 17 g, Unive rs e glycol 2-30 Oral, ity of 3350 powder 05:09: [id number], [place] 17 g 36 Starting Medical on [place] Branch 02/16/22 at 2309, Until Discontinu ed, Routine, Constipati on phenytoin 2021-02 Yes 200mg 200 mg, Univ ers Extended 2-30 Oral, QHS, ity o f (DILANTIN 03:00: First dose [place] KAPSEAL) 00 on [facility] Medical capsule 200 02/16/22 Bran ch mg at 2100, Until Discontinu ed, Routine insulin NPH 2021-02 Yes 15U 15 Units, U nivers (HUMULIN N) 2-30 Subcutaneo it y of injection 03:00: [place], QHS, [place] 15 Units 00 First dose Medic al on [facility] Branch 02/16/22 at 2100, Until Discontinu ed, Routine atorvastati 2021-02 Yes 40mg 40 mg, Univ ers n (LIPITOR) 2-30 Oral, QHS, it y of tablet 40 03:00: First dose [place] mg 00 on [facility] 02/16/22 Branch at 2100, Until Discontinu ed, Routine levETIRAcet 2021-02 Yes 500mg 500 mg, Un araseli am (KEPPRA) 2-30 Oral, BID, it y of tablet 500 02:00: First dose [place] mg 00 on [facility] 02/16/22 Branch at 2000, Until Discontinu ed, Routine apixaban 2021-02 Yes 1358 5mg 5 mg, Univers (ELIQUIS) 2-30 Oral, BID, ity of tablet 5 mg 02:00: First dose [place] 00 on [facility] 02/16/22 Branch at 2000, Until Discontinu ed, Routine
Indicatio ns: Non-Valvul ar Atrial Fibrillati on furosemide 2021-02- No 40mg 40 mg, Univ ers (LASIX) 202-19 Slow IV ity of injection 02:00: 18:11 [place], [place] 40 mg 00 :42 Q12H, Medical First dose Branch on [facility] 02/16/22 at 2000, Until Discontinu ed, Routine metoprolol 2021-02- No 50mg 50 mg, Univ ers succinate 202-18 Oral, BID, ity of XL (TOPROL 02:00: 14:37 First dose [place] XL) tablet 00 :05 on [facility] Medical 50 mg 02/16/22 Branch at 2000, [...] Branch 02/16/22 at 1100, JACQUI semaglutide Yes [id number] .25mg inject Univers (OZEMPIC) 8-17 0.25 mg ity of 0.25 mg or 00:00: under the [place] 0.5 mg(2 00 skin Medical mg/1.5 mL) weekly. Branch PnIj semaglutide Yes [id number] .25mg inject Univers (OZEMPIC) 8-17 0.25 mg ity of 0.25 mg or 00:00: under the [place] 0.5 mg(2 00 skin Medical mg/1.5 mL) weekly. Branch PnIj semaglutide Yes [id number] .25mg inject Univers (OZEMPIC) 8-17 0.25 mg ity of 0.25 mg or 00:00: under the [place] 0.5 mg(2 00 skin Medical mg/1.5 mL) weekly. Branch PnIj semaglutide Yes [id number] .25mg inject Univers (OZEMPIC) 8-17 0.25 mg ity of 0.25 mg or 00:00: under the [place] 0.5 mg(2 00 skin Medical mg/1.5 mL) weekly. Branch PnIj semaglutide 0 Yes [id number] .25mg inject Univers (OZEMPIC) 8-17 0.25 mg ity of 0.25 mg or 00:00: under the [place] 0.5 mg(2 00 skin Medical mg/1.5 mL) weekly. Branch PnIj semaglutide 0 Yes [id number] .25mg inject Univers (OZEMPIC) 8-17 0.25 mg ity of 0.25 mg or 00:00: under the [place] 0.5 mg(2 00 skin Medical mg/1.5 mL) weekly. Branch PnIj semaglutide 0 Yes [id number] .25mg inject Univers (OZEMPIC) 8-17 0.25 mg ity of 0.25 mg or 00:00: under the [place] 0.5 mg(2 00 skin Medical mg/1.5 mL) weekly. Branch PnIj semaglutide Yes [id number] .25mg inject Univers (OZEMPIC) 8-17 0.25 mg ity of 0.25 mg or 00:00: under the [place] 0.5 mg(2 00 skin Medical mg/1.5 mL) weekly. Branch PnIj semaglutide Yes [id number] .25mg inject Univers (OZEMPIC) 8-17 0.25 mg ity of 0.25 mg or 00:00: under the [place] 0.5 mg(2 00 skin Medical mg/1.5 mL) weekly. Branch PnIj semaglutide Yes [id number] .25mg inject Univers (OZEMPIC) 8-17 0.25 mg ity of 0.25 mg or 00:00: under the [place] 0.5 mg(2 00 skin Medical mg/1.5 mL) weekly. Branch PnIj semaglutide 2021-0 Yes [id number] .25mg inject Univers (OZEMPIC) 8-17 0.25 mg ity of 0.25 mg or 00:00: under the [place] 0.5 mg(2 00 skin Medical mg/1.5 mL) weekly. Branch PnIj semaglutide Yes [id number] .25mg inject Univers (OZEMPIC) 8-17 0.25 mg ity of 0.25 mg or 00:00: under the [place] 0.5 mg(2 00 skin Medical mg/1.5 mL) weekly. Branch PnIj semaglutide 2021-0 Yes [id number] .25mg inject Univers (OZEMPIC) 8-17 0.25 mg ity of 0.25 mg or 00:00: under the [place] 0.5 mg(2 00 skin Medical mg/1.5 mL) weekly. Branch PnIj semaglutide 2021-0 Yes [id number] .25mg inject Univers (OZEMPIC) 8-17 0.25 mg [...] capsules in the evening. amLODIPine 2-0 Yes [id number] 10mg Take 1 U nivers 10 mg 6-13 tablet by ity of tablet 00:00: mouth [place] 00 daily. Medical Branch amLODIPine 2-0 Yes [id number] 10mg Take 1 U nivers 10 mg 6-13 tablet by ity of tablet 00:00: mouth [place] 00 daily. Medical Branch amLODIPine 2-0 Yes [id number] 10mg Take 1 U nivers 10 mg 6-13 tablet by ity of tablet 00:00: mouth [place] 00 daily. Medical Branch amLODIPine 2-0 Yes [id number] 10mg Take 1 U nivers 10 mg 6-13 tablet by ity of tablet 00:00: mouth [place] 00 daily. Medical Branch amLODIPine 2-0 Yes [id number] 10mg Take 1 U nivers 10 mg 6-13 tablet by ity of tablet 00:00: mouth [place] 00 daily. Medical Branch amLODIPine 2021-0 2022- No [id number] 10mg Take 1 Univers 10 mg 6-13 01-10 tablet by ity of tablet 00:00: 00:00 mouth [place] 00 :00 daily. Medical Branch amLODIPine 2021-0 2022- No [id number] 10mg Take 1 Univers 10 mg 6-13 [...] s: atrial fibrillati on OXCARBAZEPI 2-0 Yes [id number] TAKE 1 Univers [place] 150 mg 3-08 TABLET 2 X ity of tablet 00:00: A DAY FOR [place] 00 1 WEEK Medical THEN 2 Branch TABS 2X DAY FOR 1 WEEK 3 TABLES 2XADAY OXCARBAZEPI 2022-0 Yes [id number] TAKE 1 [facility] [place] 150 mg 3-08 TABLET 2 X ity of tablet 00:00: A DAY FOR [place] 00 1 WEEK Medical THEN 2 Branch TABS 2X DAY FOR 1 WEEK 3 TABLES 2XADAY OXCARBAZEPI 2022-0 Yes [id number] TAKE 1 [facility] [place] 150 mg 3-08 TABLET 2 X ity of tablet 00:00: A DAY FOR [place] 00 1 WEEK Medical THEN 2 Branch TABS 2X DAY FOR 1 WEEK 3 TABLES 2XADAY OXCARBAZEPI 2022-0 Yes [id number] TAKE 1 [facility] [place] 150 mg 3-08 TABLET 2 X ity of tablet 00:00: A DAY FOR [place] 1 WEEK Medical THEN 2 Branch TABS 2X DAY FOR 1 WEEK 3 TABLES 2XADAY OXCARBAZEPI 2022-0 Yes [id number] TAKE 1 [facility] [place] 150 mg 3-08 TABLET 2 X ity of tablet 00:00: A DAY FOR [place] 1 WEEK Medical THEN 2 Branch TABS 2X DAY FOR 1 WEEK 3 TABLES 2XADAY OXCARBAZEPI 2022-0 Yes [id number] TAKE 1 [facility] [place] 150 mg 3-08 TABLET 2 X ity of tablet 00:00: A DAY FOR [place] 1 WEEK Medical THEN 2 Branch TABS 2X DAY FOR 1 WEEK 3 TABLES 2XADAY OXCARBAZEPI 2022-0 Yes [id number] TAKE 1 [facility] [place] 150 mg 3-08 TABLET 2 X ity of tablet 00:00: A DAY FOR [place] 00 1 WEEK Medical THEN 2 Branch TABS 2X DAY FOR 1 WEEK 3 TABLES 2XADAY OXCARBAZEPI 2022-0 Yes [id number] TAKE 1 [facility] [place] 150 mg 3-08 TABLET 2 X ity of tablet 00:00: A DAY FOR [place] 00 1 WEEK Medical THEN 2 Branch TABS 2X DAY FOR 1 WEEK 3 TABLES 2XADAY OXCARBAZEPI 2022-0 Yes [id number] TAKE 1 [facility] [place] 150 mg 3-08 TABLET 2 X ity of tablet 00:00: A DAY FOR [place] 00 1 WEEK Medical THEN 2 Branch TABS 2X DAY FOR 1 WEEK 3 TABLES 2XADAY OXCARBAZEPI 2022-0 Yes [id number] TAKE 1 [facility] [place] 150 mg 3-08 TABLET 2 X ity of tablet 00:00: A DAY FOR [place] 00 1 WEEK Medical THEN 2 Branch TABS 2X DAY FOR 1 WEEK 3 TABLES 2XADAY OXCARBAZEPI 2022-0 Yes [id number] TAKE 1 [facility] [place] 150 mg 3-08 TABLET 2 X ity of tablet 00:00: A DAY FOR [place] 1 WEEK Medical THEN 2 Branch TABS 2X DAY FOR 1 WEEK 3 TABLES 2XADAY OXCARBAZEPI 2022-0 Yes [id number] TAKE 1 [facility] [place] 150 mg 3-08 TABLET 2 X ity of tablet 00:00: A DAY FOR [place] 1 WEEK Medical THEN 2 Branch TABS 2X DAY FOR 1 WEEK 3 TABLES 2XADAY OXCARBAZEPI 2022-0 Yes [id number] TAKE 1 [facility] [place] 150 mg 3-08 TABLET 2 X ity of tablet 00:00: A DAY FOR [place] 1 WEEK Medical THEN 2 Branch TABS 2X DAY FOR 1 WEEK 3 TABLES 2XADAY OXCARBAZEPI 2022-0 Yes [id number] TAKE 1 [facility] [place] 150 mg 3-08 TABLET 2 X ity of tablet 00:00: A DAY FOR [place] 1 WEEK Medical THEN 2 Branch TABS [...] 6am and 6pm insulin NPH 0 Yes [id number] 10U inject Univers (NOVOLIN N 04-13 10-15 ity of NPH U-100 00:00: Units [place] INSULIN) 00 under the Medica l 100 unit/mL skin every Br anch injection evening. insulin NPH Yes [id number] 10U inject Univers (NOVOLIN N 04-13 10-15 ity of NPH U-100 00:00: Units [place] INSULIN) 00 under the Medica l 100 unit/mL skin every Br anch injection evening. insulin NPH Yes [id number] 10U inject Univers (NOVOLIN N 04-13 10-15 ity of NPH U-100 00:00: Units [place] INSULIN) 00 under the Medica l 100 unit/mL skin every Br anch injection evening. insulin NPH 2022- No [id number] 10U inject Univers (NOVOLIN N 04-13 10-15 ity of NPH U-100 00:00: 00:00 Units [place] INSULIN) 00 :00 under the Medica l 100 unit/mL skin every Br anch injection evening. furosemide 0 Yes [id number] 20mg Take 1 Univers 20 mg 1-27 tablet by ity of tablet 00:00: mouth 00 daily. Medical Branch levETIRAcet 2021-0 Yes [id number] 500mg Take 1 Univers am 500 mg 1-27 tablet by ity o f tablet 00:00: mouth 2 00 (two) Medical times Branch daily. furosemide 2021-0 Yes [id number] 20mg Take 1 Univers 20 mg 1-27 tablet by ity of tablet 00:00: mouth [place] 00 daily. Medical Branch levETIRAcet 2021-0 Yes [id number] 500mg Take 1 Univers am 500 mg 1-27 tablet by ity o f tablet 00:00: mouth 2 [place] 00 (two) Medical times Branch daily. furosemide 2022-0 Yes [id number] 20mg Take 1 Univers 20 mg 1-27 tablet by ity of tablet 00:00: mouth 00 daily. Medical Branch levETIRAcet 2021-0 Yes [id number] 500mg Take 1 Univers am 500 mg 1-27 tablet by ity o f tablet 00:00: mouth (two) Medical times Branch daily. levETIRAcet 2021-0 Yes [id number] 500mg Take 1 Univers am 500 mg 1-27 tablet by ity o f tablet 00:00: mouth (two) Medical times Branch daily. levETIRAcet 2021-0 Yes [id number] 500mg Take 1 Univers am 500 mg 1-27 tablet by ity o f tablet 00:00: mouth (two) Medical times Branch daily. levETIRAcet 2021-0 Yes [id number] 500mg Take 1 Univers am 500 mg 1-27 tablet by ity o f tablet 00:00: mouth (two) Medical times Branch daily. levETIRAcet 2021-0 Yes [id number] 500mg Take 1 Univers am 500 mg 1-27 tablet by ity o f tablet 00:00: mouth (two) Medical times Branch daily. levETIRAcet 2021-0 Yes [id number] 500mg Take 1 Univers am 500 mg 1-27 tablet by ity o f tablet 00:00: mouth (two) Medical times Branch daily. levETIRAcet 2021-0 Yes [id number] 500mg Take 1 Univers am 500 mg 1-27 tablet by ity o f tablet 00:00: mouth (two) Medical times Branch daily. levETIRAcet 2021-0 Yes [id number] 500mg Take 1 Univers am 500 mg 1-27 tablet by ity o f tablet 00:00: mouth (two) Medical times Branch daily. levETIRAcet 2-0 Yes [id number] 500mg Take 1 Univers am 500 mg 1-27 tablet by ity o f tablet 00:00: mouth (two) Medical times Branch daily. levETIRAcet 2-0 Yes [id number] 500mg Take 1 [facility] am 500 mg 1-27 tablet by ity o f tablet 00:00: mouth 2 [place] 00 (two) Medical times Branch daily. levETIRAcet 2021-0 Yes [id number] 500mg Take 1 Univers am 500 mg 1-27 tablet by ity o f tablet 00:00: mouth (two) Medical times Branch daily. levETIRAcet 2021-0 Yes [id number] 500mg Take 1 Univers am 500 mg 1-27 tablet by ity o f tablet 00:00: mouth 2 (two) Medical times Branch daily. furosemide 2021-0 3- No [id number] 20mg Take 1 Univers 20 mg 1-27 02-19 tablet by ity of tablet 00:00: 00:00 mouth [place] 00 :00 daily. Medical Branch pantoprazol 0 Yes [id number] 40mg Take 1 Univers e 40 mg EC 1-21 tablet by ity of tablet 00:00: mouth 00 daily. Medical Branch pantoprazol 0 Yes [id number] 40mg Take 1 Univers e 40 mg EC 1-21 tablet by ity of tablet 00:00: mouth 00 daily. Medical Branch pantoprazol 0 Yes [id number] 40mg Take 1 Univers e 40 mg EC 1-21 tablet by ity of tablet 00:00: mouth 00 daily. Medical Branch pantoprazol 2021-0 Yes [id number] 40mg Take 1 Univers e 40 mg EC 1-21 tablet by ity of tablet 00:00: mouth [place] 00 daily. Medical Branch pantoprazol 2021-0 Yes [id number] 40mg Take 1 Univers e 40 mg EC 1-21 tablet by ity of tablet 00:00: mouth 00 daily. Medical Branch pantoprazol 2021-0 Yes [id number] 40mg Take 1 Univers e 40 mg EC 1-21 tablet by ity of tablet 00:00: mouth [place] 00 daily. Medical Branch pantoprazol 2021-0 Yes [id number] 40mg Take 1 Univers e 40 mg EC 1-21 tablet by ity of tablet 00:00: mouth [place] 00 daily. Medical Branch pantoprazol 2021-0 Yes [id number] 40mg Take 1 Univers e 40 mg EC 1-21 tablet by ity of tablet 00:00: mouth [place] 00 daily. Medical Branch pantoprazol 2021-0 Yes [id number] 40mg Take 1 Univers e 40 mg EC 1-21 tablet by ity of tablet 00:00: mouth [place] 00 daily. Medical Branch pantoprazol Yes [id number] 40mg Take 1 Univers e 40 mg EC 1-21 tablet by ity of tablet 00:00: mouth [place] 00 daily. Medical Branch pantoprazol Yes [id number] 40mg Take 1 Univers e 40 mg EC 1-21 tablet by ity of tablet 00:00: mouth [place] 00 daily. Medical Branch pantoprazol Yes [id number] 40mg Take 1 Univers e 40 mg EC 1-21 tablet by ity of tablet 00:00: mouth [place] 00 daily. Medical Branch pantoprazol Yes [id number] 40mg Take 1 Univers e 40 mg EC 1-21 tablet by ity of tablet 00:00: mouth [place] 00 daily. Medical Branch pantoprazol Yes [id number] 40mg Take 1 Univers e 40 mg EC 1-21 tablet by ity of tablet 00:00: mouth [place] 00 daily. Medical Branch atorvastati 2020-02 Yes [id number] 40mg Take 1 Univers n 40 mg 2-14 tablet by ity of tablet 00:00: mouth at [place] 00 bedtime. Medical Branch insulin 2020-02 Yes 8U inject 8 Univer s regular 2-14 Units ity of human 00:00: under the [place] (NOVOLIN R 00 skin Medical REGULAR daily. Branch U-100 Daily at [facility]) 100 noon unit/mL injection atorvastati 2020-02 Yes [id number] 40mg Take 1 Univers n 40 mg 2-14 tablet by ity of tablet 00:00: mouth at [place] 00 bedtime. Medical Branch insulin 2020-02 Yes 8U inject 8 Univer s regular 2-14 Units ity of human 00:00: under the [place] (NOVOLIN R 00 skin Medical REGULAR daily. Branch U-100 Daily at [facility]) 100 noon unit/mL injection atorvastati 2020-02 Yes [id number] 40mg Take 1 Univers n 40 mg 2-14 tablet by ity of tablet 00:00: mouth at [place] 00 bedtime. Medical Branch insulin 2020-02 Yes 8U inject 8 Univer s regular 2-14 Units ity of human 00:00: under the [place] (NOVOLIN R 00 skin Medical REGULAR daily. Branch U-100 Daily at [facility]) 100 noon unit/mL injection atorvastati 2020-02 Yes [id number] 40mg Take 1 Univers n 40 mg 2-14 tablet by ity of tablet 00:00: mouth at [place] [address] bedtime. Medical Branch atorvastati 2020-02 Yes [id number] 40mg Take 1 Univers n 40 mg 2-14 tablet by ity of tablet 00:00: mouth at [place] [address] bedtime. Medical Branch atorvastati 2020-02 Yes [id number] 40mg Take 1 Univers n 40 mg 2-14 tablet by ity of tablet 00:00: mouth at [place] [address] bedtime. Medical Branch atorvastati 2020-02 Yes [id number] 40mg Take 1 Univers n 40 mg 2-14 tablet by ity of tablet 00:00: mouth at [place] [address] bedtime. Medical Branch atorvastati 2020-02 Yes [id number] 40mg Take 1 Univers n 40 mg 2-14 tablet by ity of tablet 00:00: mouth at [place] [address] bedtime. Medical Branch atorvastati 2020-02 Yes [id number] 40mg Take 1 Univers n 40 mg 2-14 tablet by ity of tablet 00:00: mouth at [place] [address] bedtime. Medical Branch atorvastati 2020-02 Yes [id number] 40mg Take 1 Univers n 40 mg 2-14 tablet by ity of tablet 00:00: mouth at [place] [address] bedtime. Medical Branch atorvastati 2020-02 Yes [id number] 40mg Take 1 Univers n 40 mg 2-14 tablet by ity of tablet 00:00: mouth at [place] [address] bedtime. Medical Branch atorvastati 2020-02 Yes [id number] 40mg Take 1 Univers n 40 mg 2-14 tablet by ity of tablet 00:00: mouth at [place] [address] bedtime. Medical Branch atorvastati 2020-02 Yes [id number] 40mg Take 1 Univers n 40 mg 2-14 tablet by ity of tablet 00:00: mouth at [place] [address] bedtime. Medical Branch atorvastati 2020-02 Yes [id number] 40mg Take 1 Univers n 40 mg 2-14 tablet by ity of tablet 00:00: mouth at [place] [address] bedtime. Medical Branch insulin 2020-023- No 8U inject 8 Unive rs regular 2-14 02-19 Units ity of human 00:00: 00:00 under the [place] (NOVOLIN R 00 :00 skin Medical REGULAR daily. Branch U-100 Daily at [facility]) 100 noon unit/mL injection [...] before Medical breakfast; Branch Diagnosis code E11.9 Vital Signs Vital Name Observation Time Observation Value Comments Source Systolic blood 2022-03-16 14:28:00 128 mm[Hg] Univer sity of pressure [facility] Diastolic blood 2022-03-16 14:28:00 70 mm[Hg] Unive rsity of [facility] Heart rate 2022-03-16 14:28:00 93 /min [facility] Body temperature 2022-03-16 14:28:00 35.67 Lizz [facility] Respiratory rate 2022-03-16 14:28:00 17 /min [facility] Body weight 2022-03-16 14:28:00 81.058 kg [facility] BMI 2022-03-16 14:28:00 34.90 kg/m2 [facility] Oxygen saturation in 2022-03-16 14:28:00 98 /min [facility] Arterial blood by [facility] Pulse oximetry Branch Systolic blood 2022-03-14 19:37:00 138 mm[Hg] Univer sity of [facility] Diastolic blood 2022-03-14 19:37:00 87 mm[Hg] Unive rsity of [facility] Heart rate 2022-03-14 19:37:00 94 /min [facility] Respiratory rate 2022-03-14 19:37:00 20 /min [facility] Body height 2022-03-14 19:37:00 152.4 cm Universi ty [facility] [place] [facility] Body weight 2022-03-14 19:37:00 80.74 kg Universi ty of [place] [facility] BMI 2022-03-14 19:37:00 34.76 kg/m2 Universi ty of [place] [facility] Oxygen saturation in 2022-03-14 19:37:00 99 /min University of Arterial blood by [facility] sandra Pulse oximetry Branch Systolic blood 2022-02-28 14:57:00 130 mm[Hg] Univer sity of pressure [place] [facility] Diastolic blood 2022-02-28 14:57:00 83 mm[Hg] Unive rsity of pressure [place] [facility] Heart rate 2022-02-28 14:57:00 117 /min Universi ty [facility] [place] [facility] Respiratory rate 2022-02-28 14:57:00 20 /min Univ ersity of [place] [facility] Body height 2022-02-28 14:57:00 152.4 cm Universi ty [facility] [place] [facility] Body weight 2022-02-28 14:57:00 80.377 kg Universi ty [facility] [place] [facility] BMI 2022-02-28 14:57:00 34.61 kg/m2 Universi ty [facility] [place] [facility] Oxygen saturation in 2022-02-28 14:57:00 99 /min University of Arterial blood by [facility] Pulse oximetry Branch Systolic blood 2022-02-19 17:58:00 140 mm[Hg] Univer sity of pressure [place] [facility] Diastolic blood 2022-02-19 17:58:00 95 mm[Hg] Unive rsity of pressure [place] [facility] Heart rate 2022-02-19 17:58:00 115 /min [facility]i ty [facility] [place] [facility] Body temperature 2022-02-19 13:46:00 36.78 Lizz Univ ersity of [place] [facility] Respiratory rate 2022-02-19 13:46:00 18 /min Univ ersity of [place] [facility] Oxygen saturation in 2022-02-19 13:46:00 94 /min University of Arterial blood by [facility] Pulse oximetry Branch Body weight 2022-02-18 10:44:00 83.462 kg Universi ty [facility] [place] [facility] BMI 2022-02-18 10:44:00 35.94 kg/m2 Universi ty [facility] Systolic blood 2022-02-16 16:07:00 116 mm[Hg] Univer sity of [facility] Diastolic blood 2022-02-16 16:07:00 71 mm[Hg] Unive rsity of [facility] Heart rate 2022-02-16 16:07:00 85 /min [facility] Body temperature 2022-02-16 16:07:00 36.89 Lizz [facility] 2022-02-16 16:07:00 17 /min [facility] Body weight 2022-02-16 16:07:00 84.823 kg Universi [facility] BMI 2022-02-16 16:07:00 36.52 kg/m2 [facility] Oxygen saturation in 2022-02-16 16:07:00 96 /min [facility] Arterial blood by [facility] Pulse oximetry Branch Systolic blood 2021-10-05 15:13:00 152 mm[Hg] Univer sity of [facility] Diastolic blood 2021-10-05 15:13:00 77 mm[Hg] Unive rsity of [facility] Body height 2021-10-05 15:12:00 152.4 cm Universi [facility] Body weight 2021-10-05 15:12:00 [facility]315 [facility] 2021-10-05 15:12:00 38.02 kg/m2 [facility] Procedures Procedure Date / Time Performing Clinician Source Performed AUTHORIZATION FOR RELEASE 2022-03-23 06:01:00 Doctor Unassigned, [facility] [place] [facility] FLU 2022-03-16 14:43:42 Silverio Adam [facility] VACC(),65+YR,0.5 Medica l Branch ML,IM,ADJUVANTED,QUAD(FLU AD) POCT GLUCOSE (AUTOMATED) 2022-02-19 17:59:00 Brii Samson [facility] XR CHEST 2 VW 2022-02-19 16:23:57 Sriram Heath [facility] POCT GLUCOSE (AUTOMATED) 2022-02-19 13:45:00 Brii Samson [facility] MAGNESIUM 2022-02-19 12:23:00 Rocael Vaughan [facility] BASIC METABOLIC PANEL 2022-02-19 12:23:00 Rocael Vaughan [facility] (NA, K, CL, CO2, GLUCOSE, Medica l Branch BUN, CREATININE, CA) CBC WITH DIFF 2022-02-19 12:23:00 [facility] 2022-02-19 12:23:00 Rocael Vaughan [facility] POCT GLUCOSE (AUTOMATED) 2022-02-19 07:07:00 Brii Samson [facility] POCT GLUCOSE (AUTOMATED) 2022-02-19 06:10:00 Brii Samson [facility] POCT GLUCOSE (AUTOMATED) 2022-02-19 03:34:00 Brii Samson [facility] POCT GLUCOSE (AUTOMATED) 2022-02-18 23:14:00 Brii Samson [facility] POCT GLUCOSE (AUTOMATED) 2022-02-18 17:29:00 Brii Samson [facility] POCT GLUCOSE (AUTOMATED) 2022-02-18 13:40:00 Brii Samson [facility] BASIC METABOLIC PANEL 2022-02-18 10:53:00 Rocael Vaughan [facility] (NA, K, CL, CO2, GLUCOSE, Medica l Branch BUN, CREATININE, CA) LIPID PANEL ([id number])(TOTAL 2022-02-18 10:53:00 Rocael Vaughan [facility] CHOLESTEROL, Medical Branch TRIGLYCERIDES, HDL) CBC WITH DIFF 2022-02-18 10:53:00 [facility] N-[facility]MINAL PRO-BNP 2022-02-18 10:53:00 Rocael Vaughan [facility] POCT GLUCOSE (AUTOMATED) 2022-02-18 02:34:00 Brii Samson [facility] POCT GLUCOSE (AUTOMATED) 2022-02-17 22:16:00 Chapin [facility] POCT GLUCOSE (AUTOMATED) 2022-02-17 17:45:00 Chapin [facility] POCT GLUCOSE (AUTOMATED) 2022-02-17 14:01:00 Chapin [facility] TRANSTHORACIC ECHO (TTE) 2022-02-17 13:56:00 Chapin [facility] COMPLETE W/ CONTRAST Medical Bra nch MAGNESIUM 2022-02-17 09:47:00 Chapin [facility] BASIC METABOLIC PANEL 2022-02-17 09:47:00 Chapin [facility] (NA, K, CL, CO2, GLUCOSE, Medica l Branch BUN, CREATININE, CA) N-TERMINAL PRO-BNP 2022-02-17 09:47:00 Chapin [facility] POCT GLUCOSE (AUTOMATED) 2022-02-17 03:55:00 Chapin [facility] POCT GLUCOSE (AUTOMATED) 2022-02-17 03:16:00 Chapin [facility] URINALYSIS 2022-02-16 18:07:00 Bird [facility] XR CHEST 1 VW 2022-02-16 17:06:49 Bird [facility] LIPASE 2022-02-16 16:59:00 Bird [facility] TROPONIN I 2022-02-16 16:59:00 Bird [facility] HEPATIC FUNCTION PANEL 2022-02-16 16:59:00 Bird [facility] ([address]) (ALB,T.PRO,BILI Medical Branch T,BU/BC,ALT,AST,ALK PHOS) BASIC METABOLIC PANEL 2022-02-16 16:59:00 Bird [facility] (NA, K, CL, CO2, GLUCOSE, Medica l Branch BUN, CREATININE, CA) CBC WITH DIFF 2022-02-16 16:59:00 [facility] GLYCOSYLATED HEMOGLOBIN 2022-02-16 16:59:00 Brii Samson [facility] (A1C) [facility] N-TERMINAL PRO-BNP 2022-02-16 16:59:00 Marina Pang [facility] y of [facility] COVID-19 (ID NOW RAPID 2022-02-16 16:59:00 Bird Jose ManuelZach [facility] TESTING) Medical Branch LAB ONLY COVID 2022-02-16 16:59:00 Bird [facility] o [facility] INTERPRETATION [facility] HB ECG ROUTINE & RHYTHM 2022-02-16 16:52:36 Bird [facility] CONSENT/REFUSAL FOR 2022-02-16 16:40:37 Doctor Unassigned, [facility] DIAGNOSIS AND TREATMENT [place] [facility] POCT HEMOGLOBIN A1C TEST 2021-10-05 15:15:00 Amita Gomez [facility] Encounters Start End Encounter Admission Attending Care Care Encounter Source Date/Time Date/Time Type Type Clinicians Facility Department ID 2022-06-14 Outpatient CHATA Lamb [facility] [id number] Common 12:46:01 Elaine [id number] [facility] 2022-06-02 Outpatient CHATA Lamb [facility] [id number] Common 14:48:01 Elaine [id number] [facility] 2020-12-17 Emergency [facility] [id number] Univers 21:39:43 [facility] 2020-12-17 Inpatient U [facility]RALVAAGA- [facility] [id number] Univers 18:26:55 alvino BARAKAT [facility] 2020-12-17 Emergency [facility] [id number] Univers 16:06:19 [facility] 2022-06-15 2022-06-15 Outpatient Moustapha ADAM [facility] [id number] Univers 09:00:00 09:00:00 SILVERIO [facility] 2022-04-27 2022-04-27 Outpatient R KUMAR [facility] [id number] Univers 10:20:00 10:20:00 QIACHAIM ity o f [facility] 2022-03-27 2022-03-27 [email or web address] 1.2.840.114 [id number] Univers 00:00:00 00:00:00 Qiachaim [place] [id number] ity of [id number] [id number] De dicmt NAL [address] [facility] 2022-03-23 2022-03-23 Orders Doctor YANA 1.2.840.114 [id number] Univers 00:00:00 00:00:00 Only Unassigned, CARLOS [id number] [facility] [id number] Bernabe as [id number] [address] 2022-03-22 2022-03-22 Leak Detector 2, Adc Lab [facility] 1.2.840.114 [id number] Univers 08:00:00 08:15:00 Visit Silverio Adam [id number] ity of [facility] [id number] [phone] [facility] [address] [facility] 2022-03-22 2022-03-22 [facility] [id number] Univers 08:00:00 08:00:00 SILVERIO ity [facility] 2022-03-16 2022-03-16 [facility] [id number] Univers 08:40:00 09:58:33 SILVERIO ity [facility] 2022-03-16 2022-03-16 Office [email or web address] 1.2.840.114 [id number] Univers 08:40:00 09:00:00 Visit Silverioab [place] [id number] i ty of [facility] [id number] [id number] De dical NAL 0[address] [facility] 2022-03-14 2022-03-14 Office [email or web address] 1.2.840.114 [id number] Univers 13:40:00 14:00:00 Visit Sriram COOLEYWAQAS [id number] ity of [id number] [id number] De dical NAL 059 [facility] 2022-03-14 2022-03-14 Outpatient R KUMAR, [facility] [id number] Univers 13:40:00 13:40:00 SRIRAM fergusony o f [facility] 2022-03-09 2022-03-09 Outpatient R SEWANI, [facility] [id number] Univers 09:59:09 23:59:00 SILVERIO ity of [facility] 2022-02-28 2022-02-28 Outpatient R KUMAR, [facility] [id number] Univers 09:00:00 09:16:53 SRIRAM de oliveira o f [facility] 2022-02-28 2022-02-28 Office [email or web address] 1.2.840.114 [id number] Univers 09:00:00 09:16:53 Visit Sriram [place] [id number] [place] of [id number] [phone] De dical NAL 059 [facility] 2022-02-21 2022-02-21 Transition JONO Galvan 1.2.840.114 [id number] Univers 00:00:00 00:00:00 of Care Nara MG [id number] [id number] [id number] [facility] 403 Branch 2022-02-16 2022-02-19 Inpatient X [facility] [id number] Univers 10:48:00 16:07:00 BRII ity of [facility] 2022-02-16 2022-02-19 [facility] Pang [facility] 1.2.840.11 [id number] Univers 10:48:00 16:07:00 Encounter Brii Samson [id number] it[id number] [id number] [facility] 081 Branch 2022-02-16 2022-02-16 Urgent Fang Perez [facility] 1.2.840.114 [id number] Univers 09:45:00 10:05:00 Care Unknown, Attending HEALTH [id number] ity of [place] [id number] Bernabe as HUMPHREY?BLEA [id number] De sherif [place] [address] [facility] 2022-02-16 2022-02-16 Outpatient R CASSI [facility] [id number] Univers 09:45:00 09:45:00 FANG [facility]kelsie [facility] [facility] 2022-01-31 2022-01-31 Outpatient R KUMAR, [facility] [id number] Univers 14:20:00 14:20:00 SRIRAM de oliveira o [facility] 2022-01-31 2022-01-31 Outpatient R KUMAR, [facility] [id number] Univers 14:20:00 14:20:00 SRIRAM martykelsie o ab [facility] 2021-12-02 2021-12-02 Outpatient R KIA, [facility] [id number] Univers 10:20:00 10:20:[facility] 2021-11-25 2021-11-25 Outpatient R KIA [facility] [id number] Univers 10:20:00 10:20:00 [facility] 2021-11-25 2021-11-25 Outpatient R KIA [facility] [id number] Univers 10:20:00 10:20:00 [facility] 2021-10-05 2021-10-05 Outpatient R AMITA GOMEZ [facility] [id number] Univers 10:30:00 11:22:11 AMITA GOMEZ [facility] 2021-10-05 2021-10-05 Office JasonAmita [facility] 1.2.840.114 [id number] Univers 10:30:00 11:22:11 Visit HEALTH 350.1.13.10 it [facility] 4.2.7.2.686 Bernabe as HUMPHREY?BLEA [phone] De sherif [address] MEDICAL OFFICE BUILDING 2021-09-21 2021-09-21 Telephone [email or web address] 1.2.545.128 [id number] Univers 00:00:00 00:00:00 [facility] 350.1.13.10 it y of [place] 4.2.7.2.686 Bernabe as HUMPHREY?BLEA [phone] De dical KNEY [address] MEDICAL OFFICE BUILDING 2021-08-19 2021-08-19 Outpatient R SEWANI, [facility] [id number] Univers 11:20:00 11:20:00 SILVERIO ity [facility] 2021-08-16 2021-08-16 [facility] [id number] Univers 13:00:00 13:00:00 [facility] 2021-08-01 2021-08-01 Office [email or web address] 1.2.840.114 [id number] Univers 13:40:00 14:02:37 [facility] 350.1.13.[address] [facility] 4.2.7.2.[place] [phone] De dicelinor NAL [address] [facility] 2021-08-01 2021-08-01 Outpatient R KUMAR, [facility] [id number] Univers 13:40:00 14:02:[address] [facility] fergusony o [facility] 2021-08-01 2021-08-01 Outpatient R KUMAR, [facility] [id number] Univers 13:40:00 13:40:[address] [facility] o [facility] 2021-08-01 2021-08-01 Outpatient R KUMAR, [facility] [id number] Univers 13:40:00 13:40:00 QIACHAIM ity o [facility] 2021-08-01 2021-08-01 Outpatient R KUMAR, [facility] [id number] Univers 13:40:00 13:40:[address] [facility] 2021-08-01 2021-08-01 Outpatient R KUMAR, [facility] [id number] Univers 13:40:00 13:40:[address] [facility] ity o [facility] 2021-07-22 2021-07-22 Refill [email or web address] 1.2.840.114 [id number] Univers 00:00:00 00:00:00 Sriram [facility] 350.1.13.10 ity [facility]UNITED [facility] 4.2.7.2.[place] [phone] [address] 2021-06-24 2021-06-24 Outpatient [facility] [id number] Univers 10:00:00 10:46:29 SILVERIO ity [facility] 2021-06-24 2021-06-24 Office [email or web address] 1.2.840.114 [id number] Univers 10:00:00 10:20:00 Visit [facility] 350.1.13.[address] [facility] 4.2.7.2.[place] [phone] [address] 2021-06-24 2021-06-24 [facility] [id number] Univers 10:00:00 10:00:00 SILVERIO ity [facility] 2021-06-24 2021-06-24 [facility] [id number] Univers 10:00:00 10:00:00 SILVERIO ity [facility] 2021-06-10 2021-06-10 Outpatient [facility] [id number] Univers 10:46:49 23:59:00 SILVERIO ity [facility] 2021-05-23 2021-05-23 Outpatient R KUMAR [facility] [id number] Univers 15:00:00 15:00:00 SRIRAM fergusony o [facility] 2021-05-04 2021-05-04 Outpatient R KUMAR [facility] [id number] Univers 08:00:00 23:59:00 SRIRAM fergusony o [facility] 2021-05-04 2021-05-04 Outpatient R KUMAR [facility] [id number] Univers 08:00:00 08:00:00 DIMITRIZECHARIAH martyy o [facility] 2021-04-28 2021-04-28 Outpatient R BROOKS [facility] [id number] Univers 13:00:00 14:03:10 DIANN de oliveira [facility] 2021-04-28 2021-04-28 Office [email or web address] 1.2.391.985 [id number] Univers 13:00:00 14:03:10 Visit Diann LENORAWAQAS 350.1.13.[address] [facility] 4.2.7.2.686 [place] [facility] [phone] De dical NAL [address] [facility] 2021-04-22 2021-04-22 Outpatient MITCHELL TORRES [facility] [id number] Univers 15:40:00 15:40:00 MITCHELL GARCIA kelsie [facility] 2021-04-22 2021-04-22 Outpatient MITCHELL TORRES [facility] [id number] Univers 15:40:00 15:40:00 MITCHELL GARCIA [facility] 2021-04-22 2021-04-22 Outpatient MITCHELL TORRES [facility] [id number] Univers 15:40:00 15:40:00 MITCHELL GARCIA [facility] 2021-04-18 2021-04-19 Emergency X IBIKUNLE, [facility] ERT [id number] Univers 22:42:00 02:27:00 [facility] 2021-04-18 2021-04-19 [facility] 1.2.840.114 [id number] Univers 22:42:00 02:27:00 Celia PALOMO 350.1.13.[address] [facility] 4.2.7.2.686 [place] [phone] [facility] [address] 2021-04-18 2021-04-19 Emergency X [facility]LE[email or web address] ERT [id number] Univers 22:42:00 02:27:00 CELIA [facility] 2021-04-18 2021-04-18 Orders Doctor MILLAN 1.2.840.114 [id number] Univers 00:00:00 00:00:00 Only Unassigned, CARLOS 350.1.13.[address] [place] [facility] 4.2.7.2.686 Bernabe as [phone] [facility] [address] 2021-04-15 2021-04-15 Hospital [email or web address] 1.2.512.343 [id number] Univers 12:42:22 23:59:00 Encounter Noahronypastor Combs DEWEY 350.1.13.10 ity of [place] ANGELUNITED [facility] 4.2.7.2.686 [place] [phone] [facility] [address] 2021-04-15 2021-04-15 Outpatient R KUMAR [facility] [id number] Univers 10:00:00 10:33:44 QIACHAIM fergusony o [facility] 2021-04-15 2021-04-15 Office [email or web address] 1.2.840.114 [id number] Univers 10:00:00 10:33:44 Visit Sriram PALOMO 350.1.13.[address] [facility] 4.2.7.2.686 [place] [facility] [phone] De dicDustin [place] [id number] [facility] 2021-04-15 2021-04-15 Outpatient R KUMAR [facility] [id number] Univers 10:00:00 10:33:44 SRIRAM fergusony o [facility] 2021-04-15 2021-04-15 Outpatient [facility] [id number] Univers 00:00:00 00:00:00 WONDIPASTOR de oliveira o [facility] 2021-04-15 2021-04-15 Orders Doctor MILLAN 1.2.840.114 [id number] Univers 00:00:00 00:00:00 Only Unassigned, CARLOS 350.1.13.[address] [place] [facility] 4.2.7.2.686 Bernabe as [phone] [facility] [address] 2021-04-13 2021-04-13 Outpatient R TIN [facility] [id number] Univers 10:00:00 11:12:56 GALILEAOLD MONROE ity of [facility] 2021-04-13 2021-04-13 Office Tin [facility] 1.2.840.114 [id number] Univers 10:00:00 11:12:56 Visit formerly [facility] 350.1.13.10 it y of [place] 4.2.7.2.686 Bernabe as HUMPHREY?BLEA [phone] De sherif [address] MEDICAL OFFICE BUILDING 2021-04-13 2021-04-13 Outpatient R TIN [facility] [id number] Univers 10:00:00 11:12:56 WENTONG ity [facility] 2021-04-13 2021-04-13 Outpatient R TIN [facility] [id number] Univers 10:00:00 10:00:00 WENTONG ity [facility] 2021-04-13 2021-04-13 Outpatient R TIN [facility] [id number] Univers 10:00:00 10:00:00 WENTONG ity [facility] 2021-04-13 2021-04-13 Outpatient R TIN [facility] [id number] Univers 10:00:00 10:00:00 [facility] ity [facility] 2021-04-12 2021-04-12 Nurse YANA Sanders 1.2.401.953 [id number] Univers 00:00:00 00:00:00 Triage Luis Alberto CARLOS 350.1.13.[address] [facility] 4.2.7.2.686 Bernabe as [id number] [address] 2021-04-07 2021-04-07 Telephone [email or web address] 1.2.532.926 [id number] Univers 00:00:00 00:00:00 Sriram PALOMO [address].1.13.[address] [facility] 4.2.7.2.686 [place] [phone] De dical NAL [address]59 [facility] 2021-04-01 2021-04-01 Outpatient R KIA [facility] [id number] Univers 10:00:00 10:40:52 SILVERIO ity [facility] 2021-04-01 2021-04-01 Office [email or web address] 1.2.840.114 [id number] Univers 10:00:00 10:40:52 Visit Silverio PALOMO 350.1.13.[address] [facility] 4.2.7.2.686 [place] [phone] De dical NAL 9 [facility] 2021-03-30 2021-03-30 Telephone Jose [facility] 1.2.840.114 [id number] Univers 00:00:00 00:00:00 [facility] 350.1.13.10 ity of [place] 4.2.7.2.686 Bernabe as HUMPHREY?BLEA [id number] [address] 2021-03-30 2021-03-30 Telephone [email or web address] 1.2.840.114 [id number] Univers 00:00:00 00:00:00 [facility] 350.1.13.10 ity of [place] 4.2.7.2.686 Bernabe as HUMPHREY?BLEA [id number] [address] 2021-03-29 2021-03-29 Outpatient MITCHELL TORRES [facility] [id number] Univers 08:00:00 09:38:08 JOSEMITCHELL Rockkelsie [facility] 2021-03-29 2021-03-29 Outpatient MITCHELL TORRES [facility] [id number] Univers 08:00:00 09:38:08 JOSEMITCHELL Rock kelsie [facility] 2021-03-29 2021-03-29 Outpatient MITCHELL TORRES [facility] [id number] Univers 08:00:00 08:00:00 JOSEMITCHELL Rock [facility] 2021-03-29 2021-03-29 Orders Doctor MILLAN 1.2.840.114 [id number] Univers 00:00:00 00:00:00 Only Unassigned, CARLOS 350.1.13.10 [facility] 4.2.7.2.686 Bernabe as [id number] [address] 2021-03-23 2021-03-23 Outpatient Moustapha HEATH [facility] [id number] Univers 15:40:00 16:06:08 SRIRAM diamond f [facility] 2021-03-23 2021-03-23 Office [email or web address] 1.2.840.114 [id number] Univers 15:40:00 16:06:08 Visit [facility] 350.1.13.10 ity of [place] 4.2.7.2.686 [place] [phone] De dical NAL [address] [facility] 2021-03-23 2021-03-23 Outpatient R KUMAR [facility] [id number] Univers 16:00:00 16:00:00 GUILLECHAIM ity o f [facility] 2021-03-22 2021-03-22 Telephone Brooks [facility] 1.2.840.114 [id number] Univers 00:00:00 00:00:00 Diann PALOMO 350.1.13.10 i ty of [place] 4.2.7.2.686 [place] [phone] De dical NAL 188 [facility] 2021-03-21 2021-03-21 Leak Detector [place], Adc Lab Main [facility] 1.2.8 40.114 [id number] Univers 14:45:00 15:00:00 Visit Ortega Dor[facility] 350.1 .13.10 ity of [place] 4.2.7.2.686 [place] [phone] De dical NAL 353 [facility] 2021-03-21 2021-03-21 Outpatient [facility]EV[facility] [id number] Univers 14:45:00 14:45:00 [facility] 2021-03-21 2021-03-21 Outpatient R [facility]HILL[facility]GENEV[facility] [id number] Univers 14:45:00 14:45:00 [facility] 2021-03-21 2021-03-21 Orders Doctor MILLAN 1.2.840.114 [id number] Univers 00:00:00 00:00:00 Only Unassigned, CARLOS 350.1.13.[address] [place] [facility] 4.2.7.2.686 Bernabe as [id number] [facility] [address] 2021-03-21 2021-03-21 Telephone GLENNA Dorsey 1.2.840.114 [id number] Univers 00:00:00 00:00:00 [facility] 350.1.13.10 i ty of [facility] 4.2.7.2.686 [place] [phone] [facility] [address] 2021-03-20 2021-03-20 Nurse YANA Bautista 1.2.840.114 [id number] Univers 00:00:00 00:00:00 Triage Cielo GONZALEZ 350.1.13.[address] [facility] 4.2.7.2.686 Bernabe as [id number] [facility] [address] 2021-03-18 2021-03-18 Emergency [facility] 1.2.840.114 [id number] Univers 17:02:00 22:45:00 Ananya Juan LENORAWAQAS 350.1.13.[address] [facility] 4.2.7.2.686 [place] [phone] [facility] [address] 2021-03-18 2021-03-18 Emergency [email or web address] ERT [id number] Univers 17:02:00 17:02:00 ANANYA [facility] 2021-03-18 2021-03-18 Emergency X [facility] ERT [id number] Univers 16:34:00 16:34:00 [facility] 2021-03-18 2021-03-18 Outpatient R EPI [facility] [id number] Univers 15:00:00 16:15:48 JENNIE [facility] 2021-03-18 2021-03-18 Office [email or web address] 1.2.840.114 [id number] Univers 15:00:00 16:15:48 Visit Jennie [facility] 350.1.13.10 it y [facility] 4.2.7.2.686 Bernabe as HUMPHREY?BLEA [phone] [address] MEDICAL OFFICE BUILDING 2021-03-18 2021-03-18 Outpatient R [email or web address] ERT [id number] Univers 15:00:00 16:15:48 JENNIE de oliveira [facility] 2021-03-18 2021-03-18 Outpatient R EPI [facility] [id number] Univers 15:00:00 16:15:48 JENNIE kelsie [facility] 2021-03-18 2021-03-18 Transition JONO Galvan 1.2.840.114 [id number] Univers 00:00:00 00:00:00 of Care Nara B MG 350.1.13.10 it y of [place] 4.2.7.2.686 [place] [id number] [facility] [address] 2021-03-12 2021-03-17 Inpatient X [facility] [id number] Univers 12:11:00 15:43:00 KHALED ity [facility] 2021-03-12 2021-03-17 Hospital Damien Hugo 1.2.840 .114 [id number] Univers 12:11:00 15:43:00 Encounter Soni Hunterhina ORTIZY 350.1.13.10 ity of [facility] 4.2.7.2.686 [place] [id number] [facility] [address] 2021-03-12 2021-03-17 Inpatient X [facility] [id number] Univers 12:11:00 15:43:00 ALED ity [facility] 2021-03-17 2021-03-17 Nurse Esperanza Cronin 1.2.840.114 [id number] Univers 00:00:00 00:00:00 Triage CARLOS 350.1.13.[address] [facility] 4.2.7.2.686 Bernabe as [id number] [facility] [address] 2021-03-16 2021-03-16 Case Willian, UNIVERSIT 1.2.840.114 [id number] Univers 00:00:00 00:00:00 Management Wissam Y HEALTH 350.1.13.10 ity of [place] [facility] 4.2.7.2.686 [place] [id number] [facility] [address] 2021-03-16 2021-03-16 Case Willian, [facility]ERS[facility] 1.2.840.114 [id number] Univers 00:00:00 00:00:00 Management Wissam Y HEALTH 350.1.13.10 ity of [place] [facility] 4.2.7.2.686 [place] [id number] [facility] [address] 2021-03-11 2021-03-11 Transition JONO Galvan 1.2.840.114 [id number] Univers 00:00:00 00:00:00 of Care Nara MG 350.1.13.10 it y of [place] 4.2.7.2.686 [place] [id number] [facility] [address] 2021-03-11 2021-03-11 Telephone Kumar [facility] 1.2.491.496 [id number] Univers 00:00:00 00:00:00 Sriram PALOMO [address].1.13.[address] [facility] 4.2.7.2.686 [place] [id number] [place] 259679 [facility] 2021-03-07 2021-03-10 Outpatient X ANUJ GONZALES [facility] SAMI [id number] Univers 08:28:00 14:20:00 ity [facility] 2021-03-07 2021-03-10 Emergency Husdon Wolfe 1.2.840. 114 [id number] Univers 08:28:00 14:20:00 Anuj Gonzales 350.1.13.1 0 ity [facility] 4.2.7.2.686 Bernabe as [id number] [facility] [address] 2021-03-07 2021-03-10 Outpatient X ANUJ GONZALES [facility] SAMI [id number] Univers 08:28:00 14:20:00 ity [facility] 2021-03-09 2021-03-09 Surgery Misael Castro [facility] 1.2.840.114 [id number] Univers 09:36:00 10:16:00 David ABBASI 350.1.13.10 it y of [place] 4.2.7.2.686 Bernabe as BLDG [phone] [facility] [address] 2021-03-03 2021-03-03 Outpatient R HEMANTH [facility] [id number] Univers 14:00:00 14:44:31 SHANTEL ity [facility] 2021-03-03 2021-03-03 Office [email or web address] 1.2.840.114 [id number] Univers 14:00:00 14:44:31 Visit Shantel PALOMO 350.1.13.[address] [facility] 4.2.7.2.686 [place] [phone] De dical JUSTIN [address] [facility] 2021-03-03 2021-03-03 Outpatient R BROOKS [facility] [id number] Univers 14:00:00 14:00:00 DIANN ity [facility] 2021-02-08 2021-02-08 Office Sabina Barba [facility] 1.2.840.114 [id number] Univers 15:30:00 16:44:10 Visit KHLOE 350.1.13.10 it y of [place] 4.2.[place].2.[place] [id number] [address] 2021-02-08 2021-02-08 Outpatient R ROCKY BARBAN [facility] [id number] Univers 15:30:00 16:44:10 ity [facility] 2021-02-08 2021-02-08 Outpatient R GONSALOROCKYN [facility] [id number] Univers 15:30:00 16:44:10 ity [facility] 2021-02-08 2021-02-08 Outpatient R SABINA BARBA [facility] [id number] Univers 15:30:00 15:30:[facility] 2021-02-08 2021-02-08 Outpatient R SABINA BABRA [facility] [id number] Univers 15:30:00 15:30:00 ity [facility] 2021-02-03 2021-02-03 Munir [email or web address] 1.2.840.114 [id number] Univers 00:00:00 00:00:00 Management Wondiful A HEALTH 350.1.13.10 ity of [place] 4.2.7.2.686 Bernabe as HUMPHREY?BLEA [phone] De dical TEREZAKELSI [address] [place] [address] OFFICE [facility] 2021-02-01 2021-02-01 Office [email or web address] 1.2.840.114 [id number] Univers 15:30:00 16:58:42 Visit Ericka HEALTH 350.1.13.10 it [facility] 4.2.7.2.686 Bernabe as HUMPHREY?BLEA [id number] De sherif [address] MEDICAL OFFICE [facility] 2021-02-01 2021-02-01 Outpatient R MEKA [facility] [id number] Univers 15:30:00 16:58:42 ERICKA de oliveira [facility] 2021-02-01 2021-02-01 Outpatient R MEKA [facility] [id number] Univers 16:30:00 16:30:00 ERICKA kelsie [facility] 2021-02-01 2021-02-01 Leak Detector Lab, Ang - Db [facility] 1.2.840.1 14 [id number] Univers 16:02:42 16:17:42 Visit Ericka Ackerman [facility] 350.1.13.10 ity [facility] 4.2.7.2.686 Bernabe as HUMPHREY?BLEA [phone] De sherif [facility] [address] [facility] OFFICE [facility] 2021-02-01 2021-02-01 Outpatient R MEKA [facility] [id number] Univers 15:30:00 15:30:00 ERCIKA kelsie [facility] 2021-01-31 2021-01-31 [facility] [id number] Univers 13:40:00 13:44:29 SRIRAM de oliveira o [facility] 2021-01-31 2021-01-31 Outpatient [facility] [id number] Univers 13:40:00 13:44:29 SRIRAM fergusony o [facility] 2021-01-31 2021-01-31 Office [email or web address] 1.2.840.114 [id number] Univers 13:18:52 13:44:29 [facility] 350.1.13.[address] [facility] 4.2.7.2.[place] [phone] De [facility] 059 [facility] 2021-01-31 2021-01-31 Outpatient [facility] [id number] Univers 13:40:00 13:40:00 SRIRAM ity o [facility] 2021-01-31 2021-01-31 Leak Detector Lab, Ang - Db [facility] 1.2.840.1 14 [id number] Univers 10:03:00 10:18:00 Visit Sriram Heath HEALTH 350.1.13.10 ity of [place] 4.2.7.2.686 Bernabe as HUMPHREY?BLEA [phone] De sherif [address] MEDICAL OFFICE BUILDING 2021-01-31 2021-01-31 Office [email or web address] 1.2.840.114 [id number] Univers 09:22:40 10:03:18 Visit Wondiful A HEALTH 350.1.13.10 ity of [place] 4.2.7.2.686 Bernabe as HUMPHREY?BLEA [phone] De sherif [facility] [address] [facility] 2021-01-31 2021-01-31 [facility] [id number] Univers 09:30:00 09:30:00 WONDIFUL ity o f [facility] 2021-01-11 2021-01-11 [email or web address] 1.2.840.114 [id number] Univers 00:00:00 00:00:00 Management Wonronyful [facility] 350.1.13.10 ity of [place] 4.2.7.2.686 Bernabe as HUMPHREY?BLEA [phone] [facility] [address] [facility] 2021-01-07 2021-01-07 Outpatient R [facility] [id number] Univers 16:30:00 23:59:00 WONDIFUL ity o f [facility] 2021-01-07 2021-01-07 [email or web address] [id number] Univers 16:30:00 23:59:00 Encounter Wondiful [facility] 350.1.13.10 ity of [place] 4.2.7.2.686 Bernabe as HUMPHREY?BLEA [phone] De sherif [address] [address] [facility] 2021-01-07 2021-01-07 Leak Detector Lab, Ang - Wilfred [facility] 1.2.840.1 [id number] Univers 16:36:52 16:51:52 Visit MajorNoahronyful [facility] 350.1.13.1 0 ity of [place] 4.2.7.2.686 Bernabe as HUMPHREY?BLEA [phone] De sherif [address] [address] [facility] 2021-01-07 2021-01-07 Outpatient R [facility] [id number] Univers 16:15:00 16:37:00 WONDIFUL ity o f [facility] 2021-01-07 2021-01-07 [email or web address] 1.2.840.114 [id number] Univers 15:34:25 16:37:00 Visit Wondiful [facility] 350.1.13.10 ity of [place] 4.2.7.2.686 Bernabe as HUMPHREY?BLEA [phone] De sherif [facility] [address] [facility] 2021-01-05 2021-01-05 [facility]phone [email or web address] 1.2.840.114 [id number] Univers 00:00:00 00:00:00 Wondiful [facility] 350.1.13.10 ity of [place] 4.2.7.2.686 Bernabe as HUMPHREY?BLEA [phone] [address] [facility] 2020-12-28 2020-12-28 Outpatient R KIA [facility] [id number] Univers 14:00:00 14:00:00 SILVERIO ity of Aud[place] [facility] 2020-12-27 2020-12-27 Outpatient R [facility] [id number] Univers 13:14:51 23:59:00 WONDIFUL ity o f [facility] 2020-12-27 2020-12-27 [email or web address] 1.2.142.160 [id number] Univers 13:00:00 23:59:00 Encounter Wondiful A [place] 350.1.13.10 ity of [place].2.7.2.[place] [phone] [address] 2020-12-27 2020-12-27 Outpatient R [facility] [id number] Univers 00:00:00 00:00:00 WONDIFUL ity o f [facility] 2020-12-13 2020-12-13 Telephone [email or web address] ..840.114 [id number] Univers 00:00:00 00:00:00 Wondiful A Health 350.1.13.10 ity of [place] 4.2.7.2.686 Bernabe as Humphrey?Blea [phone] [address] Office [facility] 2020-12-13 2020-12-13 Telephone Major [facility] 1.2.840.114 [id number] [facility] 00:00:00 00:00:00 Wondiful A Health 350.1.13.10 ity of [place] 4.2.7.2.686 Bernabe as Humphrey?Blea [phone] [address] Office [facility] 2020-12-06 2020-12-06 Telephone [place] [facility] 1.2.840.114 [id number] Univers 00:00:00 00:00:00 Wondiful A Health 350.1.13.10 ity of [place] 4.2.7.2.686 Bernabe as Humphrey?Blea [phone] [address] 2020-12-03 2020-12-03 Leak Detector Lab, Ang - Db [facility] 1.2.840.1 14 [id number] [facility] 16:48:38 17:03:11 Visit Clare Gonsalves Health 350.1.13.1 0 ity of [place] 4.2.7.2.686 Bernabe as Humphrey?Blea [phone] [address] 2020-12-03 2020-12-03 Leak Detector Lab, Ang - Db [facility] 1.2.840.1 14 [id number] Univers 16:48:38 17:03:11 Visit Clare Gonsalves Health 350.1.13.1 0 ity of [place] 4.2.7.2.686 Bernabe as Humphrey?Blea [phone] [address] Office [facility] 2020-12-03 2020-12-03 Leak Detector Lab, Ang - Db [facility] 1.2.840.1 14 [id number] [facility] 16:48:38 17:03:11 Visit Clare Gonsalves A HEALTH 350.1.13.1 0 ity of [place] 4.2.7.2.686 Bernabe as HUMPHREY?BLEA [phone] De sherif HOLLAND 353 [facility] OFFICE [facility] 2020-12-03 2020-12-03 Office Major [facility] 1.2.840.114 [id number] Univers 15:32:14 16:49:03 Visit Wondiful A Health 350.1.13.10 ity of [place] 4.2.7.2.686 Bernabe as Humphrey?Blea [phone] De sherif rivas 0[address] [facility] Office [facility] 2020-12-03 2020-12-03 Outpatient R [facility] [id number] Univers 15:45:00 15:45:00 WONDIFUL ity o f [facility] 2020-11-23 2020-11-23 Office [email or web address] 1.2.840.114 [id number] Univers 09:49:05 10:43:01 Visit Silverio [place] 350.1.13.10 i ty of [place].7.2.[place] Profess[place] [phone] [address] 2020-11-23 2020-11-23 Outpatient R KIA [facility] [id number] Univers 10:00:00 10:00:00 SILVERIO ity of [facility] 2020-11-15 2020-11-15 Refisra [email or web address] 1.2.840.114 [id number] Univers 00:00:00 00:00:00 Sriram Palomo 350.1.13.10 ity of [place].7.2.[place] [phone] De dicmt nal [address] [place] [address] 2020-11-15 2020-11-15 Refill [email or web address] 1.2.840.114 [id number] Univers 00:00:00 00:00:00 Wondiful A [place] 350.1.13.10 ity of [place].2.7.2.[place] [phone] De dical nal [address] [place] [address] 2020-11-11 2020-11-11 Refill [email or web address] 1.2.840.114 [id number] Univers 00:00:00 00:00:00 Wondiful A Health 350.1.13.10 ity of [place] 4.2.7.2.686 Bernabe as Professio [phone] De dical nal [address] Office [facility] One 2020-10-05 2020-10-05 Refisra Gonsalves [facility] 1.2.840.114 [id number] Univers 00:00:00 00:00:00 Wondiful A Health 350.1.13.10 ity of [place] 4.2.7.2.686 Bernabe as Professio [phone] [facility] nal [address] Office [facility] One 2020-10-04 2020-10-04 Orders Doctor YANA 1.2.840.114 [id number] Univers 00:00:00 00:00:00 Only Unassigned, CARLOS 350.1.13.[address] [place] [facility] 4.2.7.2.686 Bernabe as [phone] [address] 2020-09-24 2020-09-24 [email or web address] 1.2.840.114 [id number] Univers 00:00:00 00:00:00 Wondiful A Health 350.1.13.10 ity of [place] 4.2.7.2.686 Bernabe as Professio [phone] De dical nal 044 [facility] One 2020-09-09 2020-09-09 Cali Heath KSJENNI 1.2.840.114 [id number] Univers 00:00:00 00:00:00 Guillengjun [place] 350.1.13.10 ity of [place].2.[place] [phone] De dical nal 059 [facility] 2020-09-03 2020-09-03 Cali Gonsalves [facility] 1.2.840.114 [id number] Univers 00:00:00 00:00:00 Wondiful A Health 350.1.13.10 ity of [place] 4.2.7.2.686 Bernabe as Professio [phone] De dical nal [address] Office [facility] One 2020-07-272020-07-27 Outpatient R KIA [facility] [id number] Univers 10:20:00 10:20:00 SILVERIO ity [facility] 2020-07-27 2020-07-27 Office [email or web address] 1.2.840.114 [id number] Univers 09:56:55 10:16:55 Visit Silverio [place] 350.1.13.10 i ty of [place].2.7.2.[place] [phone] [facility] 059 [facility] 2020-07-13 2020-07-13 Orders Doctor YANA 1.2.840.114 [id number] Univers 00:00:00 00:00:00 Only Unassigned, CARLOS 350.1.13.10 [facility] 4.2.7.2.686 Bernabe as [phone] [address] 2020-07-08 2020-07-08 Ref[email or web address] 1.2.840.114 [id number] Univers 00:00:00 00:00:00 Wondiful A Health 350.1.13.10 ity of [place] 4.2.7.2.686 Bernabe as Professio [phone] [facility] 044 [facility] One 2020-06-29 2020-06-29 Outpatient [facility] [id number] Univers 10:30:00 10:30:00 ity of [facility] 2020-06-29 2020-06-29 [facility] [id number] Univers 10:30:00 10:30:00 SILVERIO ity [facility] 2020-06-07 2020-06-07 Office [email or web address] 1.2.840.114 [id number] Univers 13:02:14 13:29:23 Visit Sriram [place] 350.1.13.10 ity of [place].2.7.2.[place] [phone] De dical nal 059 [facility] 2020-06-07 2020-06-07 [facility] [id number] Univers 13:00:00 13:00:00 SRIRAM alvino diamond [facility] 2020-06-02 2020-06-02 Outpatient R DEE [facility] [id number] Univers 19:20:00 19:20:00 VIRI alivno diamond ab [facility] 2020-06-02 2020-06-02 Laboratory Lab, Adc Fam Pob I [facility] 1.2. 840.114 [id number] Univers 18:38:28 18:58:28 Only Jose [facility] 350.1.13.10 ity of [place] 4.2.7.2.686 [facility] [phone] [address] Office Building One 2020-06-02 2020-06-02 Letter Doctor MILLAN 1.2.840.114 [id number] Univers 00:00:00 00:00:00 (Out) Unassigned, CARLOS 350.1.13.10 ity of [place] [facility] 4.2.7.2.686 Bernabe as [phone] [address] 2020-06-02 2020-06-02 Letter Doctor YANA 1.2.840.114 [id number] Univers 00:00:00 00:00:00 (Out) Unassigned, CARLOS 350.1.13.10 ity of [place] [facility] 4.2.7.2.686 Bernabe as [phone] [address] 2020-06-02 2020-06-02 Letter Doctor MILLAN 1.2.840.114 [id number] Univers 00:00:00 00:00:00 (Out) Unassigned, CARLOS 350.1.13.10 ity of [place] [facility] 4.2.7.2.686 Bernabe as [phone] [address] 2020-06-02 2020-06-02 Letter Doctor YANA 1.2.840.114 [id number] Univers 00:00:00 00:00:00 (Out) Unassigned, CARLOS 350.1.13.10 ity of [place] [facility] 4.2.7.2.686 Bernabe as [phone] [address] 2020-05-20 2020-05-20 Telephone YANA Samano 1.2.776.721 [id number] Univers 00:00:00 00:00:00 Teri A CARLOS 350.1.13.[address] [facility] 4.2.7.2.686 Bernabe as [phone] [facility] [address] 2020-05-20 2020-05-20 YANA Salmon 1.2.441.170 [id number] 00:00:00 00:00:00 Teri Laur[address] CARLOS 350.1.13.10 [facility] 42.7.2.686 [phone] [facility] 2020-04-28 2020-04-28 Refill [email or web address] 1.2.840.114 [id number] Univers 00:00:00 00:00:00 Silverio [place] 350.1.13.10 i ty of [place].7.2.[place] [phone] De dic[address] 2020-04-27 2020-04-27 Office [facility] 1.2.840.114 [id number] Univers 11:25:29 11:45:29 Visit Silverio [place] 350.1.13.10 i ty of [place] 4.2.7.2.[place] [phone] [address] 2020-04-27 2020-04-27 [facility] [id number] Univers 11:40:00 11:40:00 [facility] 2020-[facility]-26 2020-04-26 Outpatient R KIT [facility] [id number] Univers 10:20:00 10:20:00 ERICH ity [facility] 2020-04-14 2020-04-14 [email or web address] 1.2.660.959 [id number] Univers 09:18:24 23:59:00 Encounter Wondiful A [place] 350.1.13.10 ity [facility] 4.2.7.2.686 [place] [phone] [facility] [address] 2020-04-14 2020-04-14 [facility] [id number] Univers 00:00:00 00:00:00 WONDIFUL ity o f [facility] 2020-03-31 2020-03-31 Leak Detector [place] [place] [facility] Main [facility] 1.2.8 40.114 [id number] Univers 09:18:24 09:33:24 Visit Clare Gonsalves [place] 350.1.13. 10 ity of [place].2.7.2.[place] [phone] De dical nal [address] [facility] 2020-03-31 2020-03-31 Outpatient [facility] [id number] Univers 09:15:00 09:15:00 WONDIFUL ity o f [facility] 2020-03-30 2020-03-30 Laboratory Pacemaker/Icd, [facility] 1.2. 840.114 [id number] Univers 12:51:02 13:15:05 Only Sewani, Silverio [place] 350.1.13.10 ity of [place] 4.2.7.2.[place] [phone] De dical nal 059 [facility] 2020-03-30 2020-03-30 Outpatient R [facility] [id number] Univers 13:00:00 13:00:00 ity of [facility] 2020-03-29 2020-03-29 Office [email or web address] 1.2.840.114 [id number] Univers 15:15:24 16:12:41 [facility] 350.1.13.10 ity of [place] 4.2.7.2.686 Bernabe as Professio [phone] De dical nal [address] Office Building One 2020-03-29 2020-03-29 [facility]patient [facility] [id number] Univers 15:30:00 15:30:00 WONDIFUL ity o f [facility] 2020-03-03 2020-03-03 Orders Doctor MILLAN 1.2.840.114 [id number] Univers 00:00:00 00:00:00 Only Unassigned, CARLOS 350.1.13.[address] [place] [facility] 4.2.7.2.686 Bernabe as [phone] [address] 2020-02-03 2020-02-03 Outpatient [facility] [id number] Univers 14:20:00 14:20:00 QIANGJUN ity o f [facility] 2020-02-03 2020-02-03 Office [facility] 1.2.840.114 [id number] Univers 13:38:09 14:13:45 Visit Sriram [place] 350.1.13.10 ity of [place] 4.2.7.2.[place] [phone] De dical nal [address] [place] [address] 2020-01-27 2020-01-27 Office [facility] 1.2.840.114 [id number] Univers 10:58:57 11:32:49 Visit Silverio [place] 350.1.13.10 i ty of [place] 4.2.7.2.[place] [phone] De dicmt nal [address] [place] [address] 2020-01-27 2020-01-27 Outpatient R [facility] [id number] Univers 11:00:00 11:00:00 SILVERIO ity of [facility] 2020-01-20 2020-01-20 Orders Doctor YANA 1.2.840.114 [id number] Univers 00:00:00 00:00:00 Only Unassigned, CARLOS 350.1.13.10 ity of [place] [facility] 4.2.7.2.686 Bernabe as [phone] [address] 2020-01-20 2020-01-20 Telephone [facility] 1.2.945.151 [id number] Univers 00:00:00 00:00:00 Guillelisazechariah [place] 350.1.13.10 ity of [place] 4.2.7.2.[place] [phone] De dicmt nal [address] [place] [address] 2020-01-20 2020-01-20 Refill [email or web address] 1.2.840.114 [id number] Univers 00:00:00 00:00:00 Qiangjun [place] 350.1.13.10 ity of [place] 4.2.7.2.[place] [phone] De dical nal 059 [facility] 2020-01-14 2020-01-14 Orders Doctor YANA 1.2.840.114 [id number] Univers 00:00:00 00:00:00 Only Unassigned, CARLOS 350.1.13.10 ity of [place] [facility] 4.2.7.2.686 Bernabe as [phone] [address] 2020-01-12 2020-01-12 Outpatient [facility] [id number] Univers 10:00:00 10:00:00 QIACHAIM ity o f [facility] 2020-01-05 2020-01-05 Leak Detector 2, Adc Lab [facility] 1.2.840.114 [id number] Univers 15:31:18 15:46:18 Visit Min Jay 350.1.1 3.10 ity of [place] 4.2.7.2.[place] [phone] De dical nal 353 [facility] 2020-01-05 2020-01-05 Office Omole, [facility] 1.2.840.114 [id number] Univers 14:39:45 15:28:14 Visit Min Palomo 350.1.13.10 i ty of [place] 4.2.7.2.686 [place] [phone] De dicmt nal 059 [facility] 2020-01-05 2020-01-05 Outpatient R FREDDY, [facility] [id number] Univers 14:45:00 14:45:00 MIN ity of [facility] 2020-01-05 2020-01-05 Orders Doctor MILLAN 1.2.840.114 [id number] Univers 00:00:00 00:00:00 Only Unassigned, CARLOS 350.1.13.10 ity of [place] [facility] 4.2.7.2.686 Bernabe as [phone] [address] 2020-01-01 2020-01-01 Telephone Kumar, [facility] 1.2.362.981 [id number] Univers 00:00:00 00:00:00 Qiangjun [place] 350.1.13.10 ity of [place] 4.2.7.2.[place] [phone] De dical nal 059 [facility] 2019-12-19 2019-12-19 Office [email or web address] 1.2.840.114 [id number] Univers 11:30:41 12:16:36 Visit Nita [place] 350.1.13.10 i ty of [place] 4.2.7.2.[place] [phone] De dical nal 085 [facility] 2019-12-19 2019-12-19 Outpatient R NITA DEGROOT [facility] [id number] Univers 11:40:00 11:40:00 NITA DEGROOT i ty of [facility] 2019-12-19 2019-12-19 Telephone [facility] 1.2.472.373 [id number] Univers 00:00:00 00:00:00 Qiangzechariah Pal[place] 350.1.13.10 ity of [place] 4.2.7.2.[place] [phone] De dicmt nal 059 [facility] 2019-12-18 2019-12-18 Orders Doctor YANA 1.2.840.114 [id number] Univers 00:00:00 00:00:00 Only Unassigned, CARLOS 350.1.13.[address] [place] [facility] 4.2.7.2.686 Bernabe as [phone] [address] 2019-12-16 2019-12-16 Office [email or web address] 1.2.840.114 [id number] Univers 08:53:47 09:13:47 Visit Silverio Palomo 350.1.13.10 i ty of [place] 4.2.7.2.[place] [phone] De dicmt nal 059 [facility] 2019-12-16 2019-12-16 Outpatient R KIA [facility] [id number] Univers 09:00:00 09:00:00 SILVERIO ity of [facility] 2019-12-15 2019-12-15 Telephone [email or web address] 1.2.840.114 [id number] Univers 00:00:00 00:00:00 Wondiful A Health 350.1.13.10 ity of [place] 4.2.7.2.686 Bernabe as Professio [phone] [address] Office [facility] 2019-12-15 2019-12-15 Case Major [facility] 1.2.840.114 [id number] Univers 00:00:00 00:00:00 Management Wonronyful A Health 350.1.13.10 ity of [place] 4.2.7.2.686 Bernabe as Professio [phone] [address] Office Building [facility] 2019-12-10 2019-12-10 Orders Doctor YANA 1.2.840.114 [id number] Univers 00:00:00 00:00:00 Only Unassigned, CARLOS 350.1.13.[address] [place] [facility] 4.2.7.2.686 Bernabe as [phone] [address] 2019-12-09 2019-12-09 Urgent Provider, [facility] Ur[facility] Care [facility] 1.2.840.114 [id number] Univers 14:46:41 15:59:38 Care Monica [facility] 350.1.13.10 ity of [place] 4.2.7.2.686 Bernabe as Professio [phone] [address] Office [facility] 2019-12-09 2019-12-09 Outpatient R LUKE [facility] [id number] Univers 15:00:00 15:00:00 MONICA itkelsie of [facility] 2019-12-04 2019-12-04 Office [place] [facility] 1.2.840.114 [id number] Univers 12:39:51 13:39:11 Visit Josianeful A Health 350.1.13.10 ity of [place] 4.2.7.2.686 Bernabe as Professio [phone] [address] Office Building [facility] 2019-12-04 2019-12-04 Outpatient R MAJOR [facility] [id number] Univers 13:00:00 13:00:00 WONDIFUL ity o f [facility] 2019-12-02 2019-12-02 Laboratory Pacemaker/Icd, [facility] 1.2. 840.114 [id number] Univers 10:50:24 11:27:03 Only Sriram Heath 350.1.13.10 ity of [place] 4.2.7.2.[place] [phone] De dical nal 059 [facility] 2019-12-02 2019-12-02 Outpatient R [facility] [id number] Univers 11:00:00 11:00:00 ity of [facility] 2019-12-02 2019-12-02 Telephone [email or web address] 1.2.840.114 [id number] Univers 00:00:00 00:00:00 Wondiful A Health 350.1.13.10 ity of [place] 4.2.7.2.686 Bernabe as Professio [phone] De dical nal [address] Office [facility] 2019-12-01 2019-12-01 Office [facility] 1.2.840.114 [id number] Univers 15:16:46 16:01:04 Visit Sriram Pal[place] 350.1.13.10 ity of [place] 4.2.7.2.[place] [phone] De dical nal 059 [facility] 2019-12-01 2019-12-01 [facility] [id number] Univers 15:40:00 15:40:00 SRIRAM de oliveira o f [facility] 2019-12-01 2019-12-01 Transition Jono Mccurdy 1.2.840.114 [id number] Univers 00:00:00 00:00:00 of Care Jo Mg 350.1.13.10 i ty of [place]2.7.2.686 [place] [phone] [facility] [address] 2019-11-26 2019-11-28 [facility] Kirt [facility] 1.2.840.1 14 [id number] Univers 14:42:00 15:06:00 Encounter Gab Servin 350.1.13.10 ity of [place] 4.2.7.2.[place] [phone] [facility] [address] 2019-11-26 2019-11-28 Inpatient X GAB SERVIN [facility] [id number] Univers 14:42:00 15:06:00 ity of [facility] 2019-11-26 2019-11-26 Telephone Major [facility] 1.2.840.114 [id number] Univers 00:00:00 00:00:00 Wondiful A Health 350.1.13.10 ity of [place] 4.2.7.2.686 Bernabe as Professio [phone] [address] Office [facility] 2019-11-24 2019-11-24 Telemedici Major [facility] 1.2.840.114 [id number] Univers 12:42:21 16:15:48 ne Visit Wondiful A Health 350.1.13.10 ity of [place] 4.2.7.2.686 Bernabe as Professio [phone] [address] Office [facility] 2019-11-24 2019-11-24 Outpatient R [facility]OR [facility] [id number] Univers 15:30:00 15:30:00 WONDIFUL ity o f [facility] 2019-11-24 2019-11-24 Transition Jono Henry 1.2.840.114 [id number] Univers 00:00:00 00:00:00 of Care Cielo Mg 350.1.13.10 it y of [place].2.[place] [phone] [address] 2019-11-24 2019-11-24 Orders Doctor YANA 1.2.840.114 [id number] Univers 00:00:00 00:00:00 Only Unassigned, CARLOS 350.1.13.10 ity of [place] [facility] 4.2.7.2.686 Bernabe as [phone] [place] [address] [address] 2019-11-21 2019-11-21 Transition Jono Henry 1.2.840.114 [id number] Univers 00:00:00 00:00:00 of Care Cielo Mg 350.1.13.10 it y of [place]2.7.2.[place] [phone] [address] 2019-11-08 2019-11-20 [facility] Fam [place] 1.2.840.114 [id number] Univers 18:18:00 16:52:00 Encounter Hiram Barnettemiliaannabella Ab Gonzalez 350.1.13.1 0 ity of [facility] 4.2.7.2 .686 [place] [phone] [address] 2019-11-08 2019-11-20 [facility] [id number] Univers 18:18:00 16:52:00 [facility] ity [facility] 2019-11-20 2019-11-20 Refill [email or web address] 1.2.840.114 [id number] Univers 00:00:00 00:00:00 Wondiful A Health 350.1.13.10 ity of [place] 4.2.7.2.686 Bernabe as Professio [phone] [address] Office [facility] 2019-11-19 2019-11-19 Outpatient [facility] [id number] Univers 14:30:00 14:30:00 WENTONG ity of [facility] 2019-11-19 2019-11-19 Refisra [email or web address] 1.2.840.114 [id number] Univers 00:00:00 00:00:00 [facility] [id number] ity of [place] [id number] Bernabe as Professio [phone] [address] One 2019-11-17 2019-11-17 [facility] [id number] Univers 08:00:00 08:00:00 SILVERIO ity of [facility] 2019-11-14 2019-11-14 Outpatient [facility] [id number] Univers 09:00:00 09:00:00 ity of [facility] 2019-11-10 2019-11-10 [facility]phone [email or web address] 1.2.840.114 [id number] Univers 00:00:00 00:00:00 [facility] [id number] ity of [place] [id number] Bernabe as Professio [phone] [address] One 2019-11-08 2019-11-08 [email or web address] 1.2.840.114 [id number] Univers 00:00:00 00:00:00 [facility] [id number] ity of [place] [id number] Bernabe as Professio [phone] [address] Office Building One 2019-11-05 2019-11-05 [facility] 1.2.840.114 [id number] Univers 07:42:01 23:59:00 Encounter [facility] [id number] [place]y [id number] [phone] [address] ([facility]) 2019-11-05 2019-11-05 [facility] [id number] Univers 00:00:00 00:00:00 SILVERIO ity of [facility] 2019-10-29 2019-10-29 [email or web address] 1.2.840.114 [id number] Univers 00:00:00 00:00:00 Outreach [facility] [id number] ity of [place] [id number] Bernabe as Professio [phone] [address] Office Building One 2019-10-29 2019-10-29 [email or web address] 1.2.840.114 [id number] Univers 00:00:00 00:00:00 Outreach [facility] [id number] ity of [place] [id number] Bernabe as Professio [phone] [address] Office Building One 2019-10-28 2019-10-28 Office [email or web address] 1.2.840.114 [id number] Univers 08:55:08 09:43:57 Visit [facility] 350.1.13.10 [place]y of [place] [id number] Bernabe as Professio [phone] [address] Office Building One 2019-10-28 2019-10-28 Outpatient R [facility]JOR [facility] [id number] Univers 09:30:00 09:30:00 WONDIFUL ity o f [facility] 2019-10-24 2019-10-24 Emergency [facility] 1.2.797.041 [id number] Univers 19:34:00 23:51:00 Lubna S [place] 350.1.13.10 ity of [place] [phone] [facility] [address] 2019-10-24 2019-10-24 Emergency X [facility] ERT [id number] Univers 19:34:00 23:51:00 WAKILI ity of [facility] 2019-10-24 2019-10-24 [facility]phone [email or web address] 1.2.840.114 [id number] Univers 00:00:00 00:00:00 Wondiful A Health 350.1.13.10 ity of [place] 4.2.7.2.686 Bernabe as Professio [phone] [facility] [address] Office Building One 2019-10-24 2019-10-24 Orders Doctor YANA 1.2.840.114 [id number] Univers 00:00:00 00:00:00 Only Unassigned, CARLOS 350.1.13.10 ity of [place] [facility] 4.2.7.2.686 Bernabe as [phone] [facility] 009 Branch 2019-10-21 2019-10-21 Telephone Mary Kay Adam 1.2.051.689 [id number] Univers 00:00:00 00:00:00 Silverio [place] 350.1.13.10 it y of Hospital 4.2.7.2.686 Bernabe as [phone] [facility] 039 [address] 2019-10-09 2019-10-09 Telephone GLENNA Adam 1.2.840.114 [id number] Univers 00:00:00 00:00:00 Silverio Y HEALTH 350.1.13.10 i ty of CLINICS [place].2.[place] [phone] [facility] 059 Branch 2019-10-08 2019-10-08 Telephone [email or web address] 1.2.840.114 [id number] Univers 00:00:00 00:00:00 Wondiful A Health 350.1.13.10 ity of [place] 4.2.7.2.686 Bernaeb as Professio [phone] De dical nal 044 [address] Office [facility] One 2019-10-08 2019-10-08 Telephone [facility] 1.2.076.607 [id number] Univers 00:00:00 00:00:00 Silverio [place] 350.1.13.10 i ty of [place] [phone] De dicmt nal 059 [facility] 2019-10-01 2019-10-01 Orders Doctor YANA 1.2.840.114 [id number] Univers 00:00:00 00:00:00 Only Unassigned, CARLOS 350.1.13.[address] [place] [facility] 4.2.7.2.686 Bernabe as [phone] [address] 2019-09-23 2019-09-23 Telephone [facility], [facility] 1.2.829.413 [id number] Univers 00:00:00 00:00:00 Silverio [place] 350.1.13.10 i ty of [place].2.[place] [phone] [facility] nal 059 [facility] 2019-09-18 2019-09-18 Telephone [email or web address] 1.2.840.114 [id number] Univers 00:00:00 00:00:00 Wondiful A [place] 350.1.13.10 ity of [place].7.2.[place] [phone] De dical nal 044 [facility] 2019-09-17 2019-09-17 Telephone [facility], [facility] 1.2.071.254 [id number] Univers 00:00:00 00:00:00 Silverio [place] 350.1.13.10 i ty of [place].2.[place] [phone] De dicmt nal 059 [facility] 2019-09-16 2019-09-16 Office [facility], [facility] 1.2.840.114 [id number] Univers 10:18:05 12:06:59 Visit Silverio [place] 350.1.13.10 i ty of [place].2.7.2.[place] [phone] De dical nal 059 [facility] 2019-09-16 2019-09-16 Outpatient R SEWANI, [facility] [id number] Univers 10:40:00 10:40:00 SILVERIO ity of [facility] 2019-09-16 2019-09-16 Telephone [email or web address] 1.2.715.719 [id number] Univers 00:00:00 00:00:00 Sriram [place] 350.1.13.10 ity of [place].2.7.2.[place] [phone] De dical nal 9 [facility] 2019-09-15 2019-09-15 Laboratory Pc, Adc Echo Room 1 - [facility] 1 .2.840.114 [id number] Univers 09:42:44 11:10:38 Only Sriram Heath 350.1.13.10 ity of [place] 4.2.7.2.[place] [phone] [facility] nal [address] [place] [address] 2019-09-15 2019-09-15 Outpatient R [facility] [id number] Univers 10:00:00 10:00:00 ity of [facility] 2019-09-10 2019-09-10 Telephone [email or web address] 1.2.840.114 [id number] Univers 00:00:00 00:00:00 Wondiful Lauryn Dewey 350.1.13.10 ity of [place] 4.2.7.2.[place] Profess[place] [phone] [facility] 044 [facility] 2019-09-08 2019-09-08 Office [email or web address] 1.2.840.114 [id number] Univers 13:10:22 13:44:08 Visit Sriram Palomo 350.1.13.10 ity of [place] 4.2.7.2.[place] [phone] [facility] nal [address] [place] [address] 2019-09-08 2019-09-08 [facility] [id number] Univers 13:20:00 13:20:00 SRIRAM de oliveira o f [facility] 2019-08-25 2019-08-25 Refill [email or web address] 1.2.840.114 [id number] Univers 00:00:00 00:00:00 [facility] 350.1.13.10 i ty of [place] 4.2.7.2.686 Bernabe as Professio [phone] De dical nal 044 [place] Office [facility] One 2019-08-18 2019-08-18 Telephone Kumar [facility] 1.2.350.292 [id number] Univers 00:00:00 00:00:00 Sriram Palomo 350.1.13.10 ity of [place] 4.2.[place].2.[place] [phone] [facility] 059 [facility] 2019-08-15 2019-08-15 Nurse Visit, [place] [facility] Nurse [facility] 1.2.840.1 14 [id number] Univers 09:12:28 21:57:47 Visit Dago Gross 350.1.13. 10 ity of [place] 4.2.7.2.[place] [phone] [facility] 059 [facility] 2019-08-15 2019-08-15 Leak Detector 2, [place] [facility] Lab [facility] 1.2.840.114 [id number] Univers 10:09:35 10:24:35 Visit Dago Gross 350.1.13. 10 ity of [place] 4.2.7.2.[place] [phone] [facility] 353 [facility] 2019-08-15 2019-08-15 Outpatient R [facility] [id number] Univers 09:30:00 09:30:00 ity of [facility] 2019-08-13 2019-08-13 Office [email or web address] 1.2.840.114 [id number] Univers 16:05:34 16:57:20 Visit Alexey Palomo 350.1.13.10 i ty of [place] 4.2.7.2.[place] [phone] [facility] 220 [facility] 2019-08-13 2019-08-13 Outpatient R TIN [facility] [id number] Univers 16:30:00 16:30:00 GALILEAONG ity [facility] 2019-08-13 2019-08-13 Orders Doctor YANA 1.2.840.114 [id number] Univers 00:00:00 00:00:00 Only Unassigned, CARLOS 350.1.13.10 [facility] 4.2.7.2.686 Bernabe as [phone] [address] 2019-08-13 2019-08-13 Refill Kumar [facility] 1.2.840.114 [id number] Univers 00:00:00 00:00:00 Sriram Palomo 350.1.13.10 ity of [place].2.[place] [phone] [address] 2019-08-07 2019-08-07 Refisra Gonsalves [facility] 1.2.840.114 [id number] Univers 00:00:00 00:00:00 Wondiful A Health 350.1.13.10 ity of [place] 4.2.7.2.686 Bernabe as Professio [phone] [facility] [address] Building One 2019-08-04 2019-08-04 Leak Detector Pc, Adc Vascular Room 1 - [facility] 1.2.840.114 [id number] Univers 10:43:00 11:05:18 Visit Sriram Heath 350.1.13.10 ity of [place] 4.2.7.2.[place] [phone] [address] 2019-08-04 2019-08-04 Outpatient R [facility] [id number] Univers 11:00:00 11:00:00 ity of [facility] 2019-08-04 2019-08-04 Telephone Kumar [facility] 1.2.960.901 [id number] Univers 00:00:00 00:00:00 Sriram Palomo 350.1.13.10 ity of [place] 4.2.[place].2.[place] [phone] [facility] nal 059 [facility] 2019-08-03 2019-08-03 Refisra Gonsalves [facility] 1.2.840.114 [id number] Univers 00:00:00 00:00:00 Wondiful A Health 350.1.13.10 ity of [place] 4.2.7.2.686 Bernabe as Professio [phone] [address] One 2019-07-30 2019-07-30 Office [facility] 1.2.840.114 [id number] Univers 13:54:46 14:40:55 Visit Sriram [place] 350.1.13.10 ity of [place].2.7.2.[place] [phone] [address] 2019-07-30 2019-07-30 Outpatient R [facility] [id number] Univers 14:20:00 14:20:00 SRIRAM de oliveira o f [facility] 2019-07-30 2019-07-30 Orders Doctor YANA 1.2.840.114 [id number] Univers 00:00:00 00:00:00 Only Unassigned, CARLOS 350.1.13.10 ity of [place] [facility] 4.2.7.2.686 Bernabe as [phone] [address] 2019-07-17 2019-07-17 Orders Doctor YANA 1.2.840.114 [id number] Univers 00:00:00 00:00:00 Only Unassigned, CARLOS 350.1.13.10 ity of [place] [facility] 4.2.7.2.686 Bernabe as [phone] [address] 2019-07-16 2019-07-16 Telephone [email or web address] 1.2.840.114 [id number] Univers 00:00:00 00:00:00 Wondiful A Health 350.1.13.10 ity of [place] 4.2.7.2.686 Bernabe as Professio [phone] [address] One 2019-07-01 2019-07-01 Telephone [facility] 1.2.006.292 [id number] Univers 00:00:00 00:00:00 Dimitrizechariah [place] 350.1.13.10 ity of [place].2.7.2.[place] [phone] [address] 2019-06-30 2019-06-30 Leak Detector [place], Luís Lab Main [facility] 1.2.8 40.114 [id number] Univers 07:52:57 08:07:57 Visit Sriram Heath 350.1.13.10 ity of [place] 4.2.7.2.[place] [phone] [facility] 353 [facility] 2019-06-30 2019-06-30 Outpatient R KUMAR, [facility] [id number] Univers 08:00:00 08:00:00 SRIRAM de oliveira o f [facility] 2019-06-25 2019-06-25 Outpatient R KUMAR, [facility] [id number] Univers 09:40:00 09:40:00 SRIRAM de oliveira o f [facility] 2019-06-25 2019-06-25 Telemedickhadar [facility]TH[email or web address] 1.2.840.114 [id number] Univers 08:37:50 08:57:50 ne Visit Sriram Palomo 350.1.13.10 ity of [place] 4.2.7.2.[place] [phone] [facility] 059 [facility] 2019-05-28 2019-05-28 [email or web address] 1.2.840.114 [id number] Univers 00:00:00 00:00:00 Wondiful A Health 350.1.13.10 ity of [place] 4.2.7.2.686 Bernabe as Professio [phone] [facility] 044 [facility] 2019-05-25 2019-05-25 Refisra [email or web address] 1.2.840.114 [id number] Univers 00:00:00 00:00:00 Wondiful A Health 350.1.13.10 ity of [place] 4.2.7.2.686 Bernabe as Professio [phone] [facility] 044 [facility] 2019-05-21 2019-05-21 Outpatient R ALEXUS RAMOS [facility] [id number] Univers 10:00:00 10:00:00 ALEXUS RAMOS ity of [facility] 2019-05-20 2019-05-20 Telemedici [email or web address] 1.2.840.114 [id number] Univers 13:50:59 14:10:59 ne Visit Sriram [place] 350.1.13.10 ity of [place] 4.2.7.2.[place] [phone] [place] 456499 [facility] 2019-05-20 2019-05-20 [facility] [id number] Univers 13:40:00 13:40:00 SRIRAM ity o f [facility] 2019-05-20 2019-05-20 Telephone [email or web address] 1.2.840.114 [id number] Univers 00:00:00 00:00:00 Wondiful A Health 350.1.13.10 ity of [place] 4.2.7.2.686 Bernabe as Professio [phone] [address] 2019-05-13 2019-05-13 Telephone [email or web address] 1.2.028.129 [id number] Univers 00:00:00 00:00:00 Sriram [place] 350.1.13.10 ity of [place] 4.2.7.2.[place] [phone] De dical nal 9 [facility] 2019-05-09 2019-05-09 Refill [email or web address] 1.2.840.114 [id number] Univers 00:00:00 00:00:00 Wondiful A Health 350.1.13.10 ity of [place] 4.2.7.2.686 Bernabe as Professio [phone] [address] 2019-05-02 2019-05-02 Telephone [email or web address] 1.2.840.114 [id number] Univers 00:00:00 00:00:00 Wondiful A Health 350.1.13.10 ity of [place] 4.2.7.2.686 Bernabe as Professio [phone] [address] 2019-05-02 2019-05-02 Telephone [email or web address] 1.2.249.957 [id number] Univers 00:00:00 00:00:00 Wentong [place] 350.1.13.10 i ty of [place] 4.2.7.2.[place] [phone] De dical nal 220 [facility] 2019-04-30 2019-04-30 Leak Detector [place], Adc Lab Main [facility] 1.2.8 40.114 [id number] Univers 09:32:20 09:47:20 Visit Sriram Heath 350.1.13.10 ity of [place] 4.2.7.2.[place] [phone] De dical nal 353 [facility] 2019-04-30 2019-04-30 Outpatient R [facility] [id number] Univers 09:45:00 09:45:00 GUILLECHAIM ity o f [facility] 2019-04-30 2019-04-30 Telephone [email or web address] 1.2.840.114 [id number] [facility] 00:00:00 00:00:00 Wondiful A Health 350.1.13.10 ity of [place] 4.2.7.2.686 Bernabe as Professio [phone] De dical nal [address]44 [place] Office [facility] One 2019-04-28 2019-04-28 Office [email or web address] 1.2.840.114 [id number] Univers 13:21:45 14:34:07 Visit Sriram Palomo 350.1.13.10 ity of [place] 4.2.7.2.[place] [phone] De dical nal 059 [facility] 2019-04-28 2019-04-28 Outpatient R KUMAR, [facility] [id number] Univers 13:20:00 13:20:00 SRIRAM ity o f [facility] 2019-04-09 2019-04-09 Leak Detector [place], Adc Lab Main [facility] 1.2.8 40.114 [id number] Univers 16:15:01 16:30:01 Visit Alexey Castle 350.1.13.10 ity of [place] 4.2.7.2.[place] [phone] De dical nal 353 [facility] 2019-04-09 2019-04-09 Office [email or web address] 1.2.840.114 [id number] [facility] 15:08:31 15:58:05 Visit Alexey Dewey 350.1.13.10 i ty of [place] 4.2.7.2.[place] [phone] [facility] nal 220 [facility] 2019-04-09 2019-04-09 Orders Doctor YANA 1.2.840.114 [id number] Univers 00:00:00 00:00:00 Only Unassigned, CARLOS 350.1.13.10 ity of [place] [facility] 4.2.7.2.686 Bernabe as [phone] [address] 2019-03-14 2019-03-30 Nurse Visit, [place] [facility] Nurse [facility] 1.2.840.1 14 [id number] Univers 08:39:08 18:06:53 Visit Dago Gross 350.1.13. 10 ity of [place] 4.2.7.2.[place] [phone] [facility] 059 [facility] 2019-03-28 2019-03-28 Telephone [facility] 1.2.840.114 [id number] Univers 00:00:00 00:00:00 Wondiful A Health 350.1.13.10 ity of [place] 4.2.7.2.686 Bernabe as Professio [phone] [facility] 044 [facility] 2019-03-24 2019-03-24 Telephone [facility] 1.2.840.114 [id number] Univers 00:00:00 00:00:00 Wondiful A Health 350.1.13.10 ity of [place] 4.2.7.2.686 Bernabe as Professio [phone] [facility] 044 [place] Office [facility] 2019-03-14 2019-03-14 Outpatient R GINNY [facility] [id number] Univers 09:15:00 09:37:46 SENDIL ity [facility] 2019-03-14 2019-03-14 Orders Doctor YANA 1.2.840.114 [id number] Univers 00:00:00 00:00:00 Only Unassigned, CARLOS 350.1.13.10 ity of [place] [facility] 4.2.7.2.686 Bernabe as [phone] [facility] 009 [address] 2019-03-06 2019-03-06 Telephone [email or web address] 1.2.840.114 [id number] Univers 00:00:00 00:00:00 Wondiful A Health 350.1.13.10 ity of [place] 4.2.7.2.686 Bernabe as Professio [phone] [address] Office Building One 2019-01-27 2019-01-27 [facility] [id number] Univers 14:20:00 14:44:45 DIMITRIZECHARIAH ity o f [facility] 2019-01-19 2019-01-19 Emergency X [email or web address] ERT [id number] Univers 10:06:29 15:10:00 EVAN fergusonkelsie [facility] 2019-01-06 2019-01-06 [facility]patient [facility] [id number] Univers 15:00:00 15:00:00 WONLUZ MARINA ity o ab [facility] 2018-12-11 2018-12-11 [facility]patient [facility] [id number] Univers 08:45:00 08:45:00 EKATERINA de oliveira [facility] 2018-11-01 2018-11-01 Telephone [facility] 1.2.840.114 [id number] Univers 00:00:00 00:00:00 [facility] HEALTH 350.1.13.10 it y of [facility] 4.2.7.2.686 [facility] [phone] [facility] Primary & 059 Branch Specialty Care 2018-10-31 2018-10-31 Telephone [email or web address] 1.2.840.114 [id number] Univers 00:00:00 00:00:00 Wondiful A Health 350.1.13.10 ity of [place] 4.2.7.2.686 Bernabe as Professio [phone] [address] Office Building One 2018-10-30 2018-10-30 Telephone [email or web address] 1.2.177.212 [id number] Univers 00:00:00 00:00:00 Madeleine Rica HEALTH 350.1.13.10 ity of [place] 4.2.7.2.686 [place] [facility] [phone] [facility] Primary & 059 Branch Specialty Care 2018-10-30 2018-10-30 Telephone Major [facility] 1.2.840.114 [id number] Univers 00:00:00 00:00:00 Wonronyful A Health 350.1.13.10 ity of [place] 4.2.7.2.686 Bernabe as Professio [phone] De dical nal 044 [address] Office Building One 2018-10-29 2018-10-29 Office Cookie [facility] 1.2.840.114 [id number] Univers 13:11:56 13:52:23 Visit Emily Health 350.1.13.10 i ty of [place] 4.2.7.2.686 Bernabe as Professio [phone] De dical nal [address] Office Building One 2018-10-28 2018-10-29 Office Fac, Adc Heart Failure Cardio [facility] 1.2.840.114 [id number] Univers 15:47:43 12:03:16 Visit Edgar Cortés [place] 350.1 .13.10 ity of [place] 4.2.7.2.686 [facility] [phone] De dicmt nal [address] Building 2018-10-28 2018-10-28 Hospital Nate [facility] 1.2.840.114 [id number] Univers 16:46:06 23:59:00 Encounter Madeleine [place] 350.1.13.10 ity of [place] 4.2.7.2.[place] [phone] [facility] 807 [address] 2018-10-28 2018-10-28 Leak Detector 1, Adc Lab [facility] 1.2.840.114 [id number] Univers 16:41:14 16:56:14 Visit Madeleine [place] 350.1.13.10 ity of [place] 4.2.7.2.[place] [phone] [facility] 353 [address] 2018-10-28 2018-10-28 Orders Doctor MILLAN 1.2.840.114 [id number] Univers 00:00:00 00:00:00 Only Unassigned, CARLOS 350.1.13.10 ity of [place] [facility] 4.2.7.2.686 Bernaeb as [phone] [address] 2018-10-24 2018-10-24 Refill Willian, [facility] 1.2.840.114 [id number] Univers 00:00:00 00:00:00 Wissam HEALTH 350.1.13.10 it y of [place].2.7.2.686 [place] [phone] [facility] Primary & [facility] Branch Specialty Care 2018-10-14 2018-10-14 Refill Freddy, [facility] 1.2.840.114 [id number] Univers 00:00:00 00:00:00 Min Dewey 350.1.13.10 i ty of [place].2.7.2.[place] [phone] De dical nal 059 [address] Building 2018-10-01 2018-10-01 Orders Doctor YANA 1.2.840.114 [id number] Univers 00:00:00 00:00:00 Only Unassigned, CARLOS 350.1.13.10 ity of [place] [facility] 4.2.7.2.686 Bernabe as [phone] [address] 2018-09-26 2018-09-26 Leak Detector Lab, [place] [facility] Fam Pob I [facility] 1.2. 840.114 [id number] Univers 13:45:07 15:25:16 Visit Clare Gonsalves A Health 350.1.13.1 0 ity of [place] 4.2.7.2.686 Bernabe as Professio [phone] [facility] 044 [address] Office Building One 2018-09-26 2018-09-26 Telephone Fac, [facility] 1.2.840.114 [id number] Univers 00:00:00 00:00:00 Heart HEALTH 350.1.13.10 it y of [place] 4.2.7.2.[place] [phone] [facility] Primary & [facility] Branch Specialty Care 2018-09-10 2018-09-10 Office Major [facility] 1.2.840.114 [id number] Univers 12:36:16 13:37:40 Visit NoahGreats 350.1.13.10 ity of [place] 4.2.7.2.686 Bernabe as Edelmiraio [phone] De dical nal [address] Building One 2018-09-02 2018-09-02 Orders Doctor YANA 1.2.840.114 [id number] Univers 00:00:00 00:00:00 Only Unassigned, CARLOS 350.1.13.[address] [place] [facility] 4.2.7.2.686 Bernabe as [phone] [address] Results Test Description Test Time Test Comments Results Result Comments Source POCT GLUCOSE (AUTOMATED) 2022-02-19 18:34:13 Test Item Value Reference Range Interpretation Comme nts POCT GLU (test code = 0270307854) 354 mg/dL 70-110 H Lab Interpretation (test code = 96367-4) Abnormal [facility] GLUCOSE (AUTOMATED)2022-02-19 14:51:34 Test Item Value Reference Range Interpretation Comments POCT GLU (test code = 8817492566) 158 mg/dL 70-110 H Lab Interpretation (test code = Abnormal 86237-1) [facility] GLUCOSE (AUTOMATED)2022-02-19 07:09:11 Test Item Value Reference Range Interpretation Comments POCT GLU (test code = 9729642786) 109 mg/dL 70-110 Lab Interpretation (test code = Normal 16828-1) [facility] GLUCOSE (AUTOMATED)2022-02-19 06:15:00 Test Item Value Reference Range Interpretation Comments POCT GLU (test code = 1714983825) 56 mg/dL 70-110 L Lab Interpretation (test code = Abnormal 94911-8) [facility] GLUCOSE (AUTOMATED)2022-02-19 03:41:03 Test Item Value Reference Range Interpretation Comments POCT GLU (test code = 9243430866) 197 mg/dL 70-110 H Lab Interpretation (test code = Abnormal 84938-7) [facility] GLUCOSE (AUTOMATED)2022-02-18 23:17:16 Test Item Value Reference Range Interpretation Comments POCT GLU (test code = 8848024415) 240 mg/dL 70-110 H Lab Interpretation (test code = Abnormal 79070-5) [facility] GLUCOSE (AUTOMATED)2022-02-18 18:24:23 Test Item Value Reference Range Interpretation Comments POCT GLU (test code = 5800842178) 274 mg/dL 70-110 H Lab Interpretation (test code = Abnormal 53381-0) [facility] GLUCOSE (AUTOMATED)2022-02-18 18:24:18 Test Item Value Reference Range Interpretation Comments POCT GLU (test code = 4311084029) 92 mg/dL 70-110 Lab Interpretation (test code = Normal 82145-8) [facility], [facility]lycerides, HDL[facility] - [id number] 12:27:34 Test Item Value Reference Range Interpretation Comments CHOL (test code = 146 mg/dL 120-200 5651928997) HDL (test code = 54 mg/dL See_Comment [Automated message] 3002565952) The system [employer] generated this result transmit luis miguel reference range : >=50. The refer ence range was not u sed to interpret th is result as normal/abnormal . HDLC RATIO (test code = See_Comment [Au tomated message] 7911865572) The system [employer] generated this result transmit luis miguel reference range : <=4.5. The refe rence range was not u sed to interpret th is result as normal/abnormal . TRIG (test code = 113 mg/dL 30-170 6670216244) LDL CHOL (test code = 69 mg/dL See_Comment [Auto mated message] 34781-0) The system [employer] generated this result transmit luis miguel reference range : <=160. The refe rence range was not u sed to interpret th is result as normal/abnormal . VLDL (test code = 23 mg/dL 5-60 8979695490) Lab Interpretation (test Normal code = 37676-1) [id number] 12:27:34 Test Item Value Reference Range Interpretation Comments NT-proBNP (test code 00708 pg/mL See_Comment H [Autom ated = 3292420060) message] The system which generated this result transmitted reference range : <=450. The reference range was not used to interpret this result as normal/abnormal . SEN (test code = SEN) Biotin has been reported to cause a negative bias, interpret results relative to patient's use of biotin. Lab Interpretation Abnormal (test code = 48381-1) [facility] METABOLIC PANEL (NA, K, CL, CO2, GLUCOSE, BUN, CREATININE, CA)2022-02-18 12:27:14 Test Item Value Reference Range Interpretation Comments NA (test code = 137 mmol/L 135-145 0525955965) K (test code = 4.0 mmol/L 3.5-5.0 9233964779) CL (test code = 104 mmol/L 98-108 4635774995) CO2 TOTAL (test code = 25 mmol/L 23-31 7635864786) AGAP (test code = 2-16 8084352832) BUN (test code = 62 mg/dL 7-23 H 8487278848) GLUCOSE (test code = 90 mg/dL 70-110 2167524977) CREATININE (test code = 2.02 mg/dL 0.50-1.04 H 7260118451) CALCIUM (test code = 8.3 mg/dL 8.6-10.6 L 1347290822) eGFR (test code = mL/min/1.73m2 9587304419) SEN (test code = SEN) Association of [...] tests). Lab Interpretation Abnormal (test code = 49960-2) [facility] [id number] 11:30:43 Test Item Value Reference Range Interpretation [...] RDW-SD (test code = 46.4 fL 39.0-49.9 39952-6) RDW-CV (test code = 13.2 % 12.0-15.5 788-0) PLT (test code = See_Comment [Automated 777-3) message] The sy stem which generated this result transmitted reference range : 166 - 358 10*3/ ?L. The reference r beltran was not used to interpret this result as normal/abnormal . MPV (test code = 13.0 fL 9.5-12.9 H 54929-3) NRBC/100 WBC (test See_Comment [Automat ed code = 3141819750) message] The system which generated this result transmitted reference range : 0.0 - 10.0 /100 WBCs. The refer ence range was not u sed to interpret th is result as normal/abnormal . NRBC x10^3 (test code See_Comment [Auto mated = 3118240869) message] The s ystem which generated this result transmitted reference range : 10*3/?L. The reference range was not used to interpret this result as normal/abnormal . GRAN MAT (NEUT) % 58.4 % (test code = 770-8) IMM GRAN % (test code 0.30 % = 9088808989) LYMPH % (test code = 27.5 % 736-9) MONO % (test code = 9.3 % 5905-5) EOS % (test code = 4.2 % 713-8) BASO % (test code = 0.3 % 706-2) GRAN MAT x10^3(ANC) 3.71 10*3/uL 1.88-7.09 (test code = 4021127143) IMM GRAN x10^3 (test 0.00-0.06 code = 7683942314) LYMPH x10^3 (test code 1.75 10*3/uL 1.32-3.29 = 731-0) MONO x10^3 (test code 0.59 10*3/uL 0.33-0.92 = 742-7) EOS x10^3 (test code = 0.27 10*3/uL 0.03-0.39 711-2) BASO x10^3 (test code 0.01-0.07 = 704-7) Lab Interpretation Abnormal (test code = 31654-3) [facility] GLUCOSE (AUTOMATED)2022-02-18 02:39:08 Test Item Value Reference Range Interpretation Comments POCT GLU (test code = 9703378981) 196 mg/dL 70-110 H Lab Interpretation (test code = Abnormal 00012-6) [facility] GLUCOSE (AUTOMATED)2022-02-17 23:16:54 Test Item Value Reference Range Interpretation Comments POCT GLU (test code = 4604048272) 140 mg/dL 70-110 H Lab Interpretation (test code = Abnormal 35589-0) [facility] 19:44:53 Test Item Value Reference Range Interpretation Comments Height (test code = in 8951036185) Weight (test code = lbs 0154076391) Systolic BP (test code = mmHg 5086612196) Diastolic BP (test code mmHg = 8220920044) Heart Rate (test code = bpm 2680991857) BSA (test code = 1.81 m2 2144218379) Ao root diam (test code 3.30 cm = 7987081244) Aortic root (test code = 3.3 cm 4194304852) Ao root annulus (test 3.3 cm code = 4456668408) LVOT diameter (test code 1.89 cm = 3877807871) LVOT area (test code = 2.80 cm2 3152988913) LAV(MOD-sp4) (test code 52.90 mL = 6963181874) E wave decelartion time 0.17 s (test code = 8852162852) MV stenosis pressure 1/2 51.3 ms time (test code = 1001076847) MV Peak E Mily (test code 95.2 cm/s = 2325233611) MV Peak A Mily (test code 61.8 cm/s = 2594484613) E/A ratio (test code = ratio 7898732238) MV Prop V (test code = 23.30 cm/s 9050274299) MV E/e' septal (test 7.8 cm/s code = 0393735515) TR Peak Mily (test code = 310.8 cm/s 9160471077) Triscuspid Valve mmHg Regurgitation Peak Gradient (test code = 5866191551) Tapse (test code = 1.99 cm 7362685755) LVOT stroke volume (test 40.40 cm3 code = 2106626112) LVOT peak mily (test code 67.8 cm/s = 3732338440) LVOT mn grad (test code mmHg = 1242929804) AV LVOT peak gradient mmHg (test code = 1425895017) LVOT peak VTI (test code 14.4 cm = 4505267788) LV V1 mean (test code = 45.30 cm/s 0358879432) MR max PG (test code = 65.40 mm[Hg] 7462419178) MR max mily (test code = 404.30 cm/s 0036694171) Mr max mily (test code = 404.3 m/s 6644648780) LVIDD (test code = 6.30 cm 0942425755) Left Ventricular End 202.4 mL Diastolic Volume by Teichholz Method (test code = 0126999) IVS (test code = 0.94 cm 1786236963) Interventricular Septum 0.94 cm Diastolic Thickness by 2D (test code = 1065701) LVPWD (test code = 0.94 cm 1382544415) PW (test code = 0.94 cm 0.6-1.8 7469861415) EF(Teich) (test code = 19.10 % 4954410948) LVIDS (test code = 5.80 cm 6367082368) Left Ventricular End 163.8 mL Systolic Volume by Teichholz Method (test code = 2161527) FS (test code = 9 % 1005625961) EF - 2D (test code = 19.10 % 25648589) LA size (test code = 3.5 cm 4952892560) Radiology Study observation (narrative) (test code = 65914-1) SEN (test code = SEN) Table formatting [...] Interpretation Comments POCT GLU (test code = 3188142161) 160 mg/dL 70-110 H Lab Interpretation (test code = Abnormal 65501-6) [facility] GLUCOSE (AUTOMATED)2022-02-17 14:06:55 Test Item Value Reference Range Interpretation Comments POCT GLU (test code = 2450521429) 101 mg/dL 70-110 Lab Interpretation (test code = Normal 05465-5) [facility] GLUCOSE (AUTOMATED)2022-02-17 03:58:48 Test Item Value Reference Range Interpretation Comments POCT GLU (test code = 3220327854) 278 mg/dL 70-110 H Lab Interpretation (test code = Abnormal 04905-1) [facility] GLUCOSE (AUTOMATED)2022-02-17 03:21:46 Test Item Value Reference Range Interpretation Comments POCT GLU (test code = 2876570657) 279 mg/dL 70-110 H Lab Interpretation (test code = Abnormal 06632-6) [facility]A1C[facility]2022-02-17 01:58:04 Test Item Value Reference Range Interpretation Comments HGB A1C (test code = 10.0 % 4.0-5.7 H 4548-4) SEN (test code = SEN) Reference RangesNormal: <5.7%Prediabetes: 5.7 - 6.4%Diabetes: > 6.5% Lab Interpretation (test Abnormal code = 46988-2) [facility] [id number] 17:30:57 Test Item Value Reference Interpretation Comments Range TROPONIN I (test 0.028 ng/mL See_Comment [Automated code = 3514144480) message] The system which generated this result transmitted reference range : <=0.034. The reference range was not used to interpret this result as normal/abnormal . SNE (test code = Reference (Normal) SEN) Range [...] biotin. Lab Interpretation Normal (test code = 78821-0) [facility] [id number] 17:27:54 Test Item Value Reference Range Interpretation Comments NT-proBNP (test code 96985 pg/mL See_Comment H [Autom ated = 7104713105) message] The system which generated this result transmitted reference range : <=450. The reference range was not used to interpret this result as normal/abnormal . SEN (test code = SEN) Biotin has been reported to cause a negative bias, interpret results relative to patient's use of biotin. Lab Interpretation Abnormal (test code = 50096-1) [facility] (NA, K, CL, CO2, GLUCOSE, BUN, CREATININE, CA)2022-02-16 17:19:15 Test Item Value Reference Range Interpretation Comments NA (test code = 135 mmol/L 135-145 2964186604) K (test code = 4.7 mmol/L 3.5-5.0 0159795981) CL (test code = 104 mmol/L 98-108 3205489726) CO2 TOTAL (test code = 23 mmol/L 23-31 1102482038) AGAP (test code = 2-16 4373203520) BUN (test code = 58 mg/dL 7-23 H 4820538722) GLUCOSE (test code = 260 mg/dL 70-110 H 2502033558) CREATININE (test code = 1.78 mg/dL 0.50-1.04 H 7714140371) CALCIUM (test code = 8.2 mg/dL 8.6-10.6 L 8823939505) eGFR (test code = mL/min/1.73m2 8269148972) SEN (test code = SEN) Association of [...] tests). Lab Interpretation Abnormal (test code = 40912-0) [facility]17271[facility] (ALB,T.PRO,BILI T,BU/BC,ALT,AST,ALK PHOS)2022-02-16 17:19:15 Test Item Value Reference Range Interpretation Comments TOTAL BILI (test code = 7498013326) 0.4 mg/dL 0.1-1.1 BILI UNCON (test code = 7880189346) 0.3 mg/dL 0.1-1.1 BILI CONJ (test code = 7439796104) 0.0 mg/dL 0.0-0.3 T PROTEIN (test code = 6690662988) 6.8 g/dL 6.3-8.2 ALBUMIN (test code = 3675584709) 3.8 g/dL 3.5-5.0 ALK PHOS (test code = 5689535941) 146 U/L 34-122 H ALTv (test code = 1742-6) 29 U/L 5-35 AST(SGOT) (test code = 5111675929) 28 U/L 13-40 Lab Interpretation (test code = Abnormal 99065-4) [facility] 17:19:15 Test Item Value Reference Range Interpretation Comments LIPASE (test code = 6477249824) 46 U/L 0-220 Lab Interpretation (test code = Normal 03009-4) [facility] WITH [id number] 17:12:53 Test Item Value Reference Range Interpretation [...] RDW-SD (test code = 47.8 fL 39.0-49.9 58920-2) RDW-CV (test code = 13.5 % 12.0-15.5 788-0) PLT (test code = See_Comment [Automated 777-3) message] The sy stem which generated this result transmitted reference range : 166 - 358 10*3/ ?L. The reference r beltran was not used to interpret this result as normal/abnormal . MPV (test code = 12.9 fL 9.5-12.9 22018-8) NRBC/100 WBC (test See_Comment [Automat ed code = 6721579592) message] The system which generated this result transmitted reference range : 0.0 - 10.0 /100 WBCs. The refer ence range was not u sed to interpret th is result as normal/abnormal . NRBC x10^3 (test code See_Comment [Auto mated = 3275457776) message] The s ystem which generated this result transmitted reference range : 10*3/?L. The reference range was not used to interpret this result as normal/abnormal . GRAN MAT (NEUT) % 75.4 % (test code = 770-8) IMM GRAN % (test code 0.20 % = 0439101560) LYMPH % (test code = 14.9 % 736-9) MONO % (test code = 7.7 % 5905-5) EOS % (test code = 1.6 % 713-8) BASO % (test code = 0.2 % 706-2) GRAN MAT x10^3(ANC) 6.77 10*3/uL 1.88-7.09 (test code = 4157121463) IMM GRAN x10^3 (test 0.00-0.06 code = 5905437284) LYMPH x10^3 (test code 1.34 10*3/uL 1.32-3.29 = 731-0) MONO x10^3 (test code 0.69 10*3/uL 0.33-0.92 = 742-7) EOS x10^3 (test code = 0.14 10*3/uL 0.03-0.39 711-2) BASO x10^3 (test code 0.01-0.07 = 704-7) Lab Interpretation Abnormal (test code = 02613-6) [facility] HEMOGLOBIN A1C [id number] 15:15:00 Test Item Value Reference Range Interpretation Comments POCT HBA1C (test code = 4548-4) 7.6 % 4-6 A Lab Interpretation (test code = Abnormal 02599-5) [facility] A[facility]C [id number] 15:15:00 Test Item Value Reference Range Interpretation Comments POCT HBA1C (test code = 4548-4) 7.6 % 4-6 A Lab Interpretation (test code = Abnormal 67646-2) [facility]
--- NOTE | 2022-11-08 19:30 | RAD REPORT ---
EXAM DESCRIPTION: RADChest Single View11/08/2022 7:13 pm CLINICAL HISTORY: DYSPNEA COMPARISON: Chest Single View dated 09/27/2022; Chest Single View dated 09/16/2022; Chest Single View d ated 09/14/2022; Chest Single View dated 09/09/2022 TECHNIQUE: Portable AP view of the chest. FINDINGS: Stable appearance of central interstitial prominence and vascular engorgement. No pneumot horax or sizable effusion. Stable cardiomegaly. Mediastinal contours are otherwise unremarkable. Lef t chest wall pacer/AICD in place. IMPRESSION: Stable findings as above, suggestive of CHF.
[2022-11-08 19:48] LABS: Absolute Lymphocytes (CBC) 1.1 K/uL (0.7-4.9); Hematocrit 29.4 % (36.0-45.0); Lymphocytes % 17.7 % (15.3-44.8); MCV 95.3 fL (80-100); MPV 10.1 fL (7.6-11.3); Platelets 185 thou/uL (152-406); RBC Red Blood Cell Count 3.09 M/uL (3.86-4.86)
[2022-11-08 19:52] LABS: Protime INR 0.93
[2022-11-08 20:06] LABS: Magnesium 2.5 mg/dL (1.6-2.4); Potassium 4.5 mEq/L (3.5-5.1); Troponin High Sensitivity 21.7 pg/mL (<58.9)
[2022-11-08 23:27] LABS: Specific Gravity 1.012 (1.005-1.030); Urine Bacteria <20 /HPF (<20); Urine Bilirubin NEGATIVE (Negative); Urine Blood Negative (Negative); Urine Clarity Extremely Turbid (Clear); Urine Color Light-Yellow (Yellow); Urine Glucose NEGATIVE (Negative); Urine Mucus Slight /HPF (None Seen); Urine Protein TRACE (Negative); Urine RBC <5 /HPF (None Seen); Urine Urobilinogen Normal (Normal)
--- NOTE | 2022-11-08 23:35 | ER ---
Nurse's Notes [facility] [place]beth Name: Teena Simpson Age: 77 yrs Sex: Female : 1945 Arrival Date: 11/08/2022 Time: 18:36 Bed 4 Private MD: Diagnosis: Dyspnea;UTI/ Urinary tract infection, site not specified Presentation: 11/08 18:47 Chief complaint: Patient states: SOB that is intermittent x a few days, had breathing ph tx at home w/ little relief, also reports leg swelling, intermittent L arm pain and indigestion and symptoms of UTI. Coronavirus screen: Vaccine status: Patient reports receiving the 2nd dose of the covid vaccine. Ebola Screen: No symptoms or risks identified at this time. Initial Sepsis Screen: Does the patient meet any 2 criteria? No. Patient's initial sepsis screen is negative. Does the patient have a suspected source of infection? No. Patient's initial sepsis screen is negative. Risk Assessment: Do you want to hurt yourself or someone else? Patient reports no desire to harm self or others. 18:47 Method Of Arrival: Wheelchair ph 18:51 Acuity: TYSON 3 ph 19:44 Onset of symptoms was November 08, 2022. rv Triage Assessment: 19:44 General: Appears comfortable. General: Behavior is calm, cooperative. Respiratory: rv Reports shortness of breath at rest Onset: The symptoms/episode began/occurred gradually, the patient has mild shortness of breath. Historical: - Allergies: 18:48 Augmentin; ph 18:48 Cipro; ph 18:48 Keppra; ph - PMHx: 18:48 Anxiety; Atrial Fib; CHF; Diabetes - IDDM; High Cholesterol; Hypertension; Kidney ph failure stage 4; Low HR; Myocardial infarction; neuropathy; Seizures; - PSHx: 18:48 Appendectomy; Hemorrhoidectomy; Pacemaker-Defib; ph - Immunization history:: Adult Immunizations unknown. - Social history:: Smoking status: unknown. Screenin:[address] [facility] ED Fall Risk Assessment (Adult) History of falling in the last 3 months, rv including since admission No falls in past 3 months (0 pts) Confusion or Disorientation No (0 pts) Intoxicated or Sedated No (0 pts) Impaired Gait No (0 pts) Mobility Assist Device Used No (0 pt) Altered Elimination No (0 pt) Score/Fall Risk Level 0 - 2 = Low Risk Oriented to surroundings, Maintained a safe environment, Educated pt \T\ family on fall prevention, incl call for assistance when getting out of bed, Assessed \T\ reinforced patient's understanding of fall precautions, Provided non-skid footwear, Hourly rounding (assess needs \T\ fall precautionary measures) done, Used ambulatory aids as needed (educated on \T\ assisted with), Used gait belt as appropriate. Abuse screen: Denies threats or abuse. Denies injuries from another. Nutritional screening: No deficits noted. Tuberculosis screening: No symptoms or risk factors identified. Assessment: 19:43 General: Appears comfortable, Behavior is calm, cooperative. Pain: Denies pain. Neuro: rv Level of Consciousness is awake, alert, obeys commands, Oriented to person, place, time, situation. Cardiovascular: Rhythm is A-V sequential pacer. Respiratory: Airway is patent Respiratory effort is even, unlabored, Breath sounds are clear bilaterally. GI: No signs and/or symptoms were reported involving the gastrointestinal system. : No signs and/or symptoms were reported regarding the genitourinary system. Derm: Skin is intact. Vital Signs: 18:50 BP 120 / 74; Pulse 90; Resp 18; Temp 97.5; Pulse Ox 99% on R/A; Weight 78.47 kg; Height ph 5 ft. 0 in. ; 20:03 BP 118 / 79; Pulse 90; Resp 16; Pulse Ox 98% on R/A; kd3 20:24 BP 125 / 75; Pulse 90; Resp 18; Pulse Ox 100% on R/A; kd3 22:03 BP 130 / 85; Pulse 91; Resp 20; Pulse Ox 100% on R/A; kd3 22:41 BP 130 / 85; Pulse 90; Resp 20; Pulse Ox 94% on R/A; kd3 23:43 BP 113 / 74; Pulse 90; Resp 19; Pulse Ox 100% on R/A; kd3 18:50 Body Mass Index 33.79 (78.47 kg, 152.4 cm) ph ED Course: 18:39 Patient arrived in ED. as 18:43 Lakshmi Kelly F[facility]-C [facility]. kb 18:43 Contreras Natarajan MD is Attending Physician. kb 18:49 Arm band placed on. ph 18:51 Triage completed. ph 19:04 Myla Melendez, RN is Primary Nurse. kd3 19:15 XRAY Chest (1 view) In Process Unspecified. EDMS 19:40 Inserted saline lock: 22 gauge in right antecubital area, using aseptic technique. oe Blood collected. 19:41 SARS-COV-2 RT PCR Sent. oe 19:41 Basic Metabolic Panel Sent. oe 19:41 CBC with Diff Sent. oe 19:41 Magnesium Sent. oe 19:41 NT PRO-BNP Sent. oe 19:42 PT-INR Sent. oe 19:42 Troponin HS Sent. oe 19:43 Patient has correct armband on for positive identification. Client placed on continuous rv cardiac and pulse oximetry monitoring. NIBP monitoring applied. fur floor worker on. 22:02 Assisted to bathroom. kd3 23:44 No provider procedures requiring assistance completed. kd3 23:50 Provided Education on: . kd3 23:50 IV discontinued, intact, bleeding controlled, No redness/swelling at site. Pressure kd3 dressing applied. Administered Medications: No medications were administered Medication: 19:43 VIS not applicable for this client. rv Outcome: 23:35 Discharge ordered by . kb 23:50 Discharged to home via wheelchair, with family, kd3 23:50 Condition: stable 23:50 Discharge instructions given to patient, family, Instructed on discharge instructions, follow up and referral plans. Demonstrated understanding of instructions, follow-up care, 23:50 Patient left the ED. kd3 Signatures: Dispatcher [employer] EDMS Lakshmi Kelly, TYLER-Babita SCOTT-Keren Minor as Mara Urbina, RN RN Jesus Guadalupe Franklin Moran, RN RN Myla Melendez, RN RN kd3
--- NOTE | 2022-11-08 23:35 | EDPHYS ---
Physician Documentation [facility] Name: Teena Simpson Age: 77 yrs Sex: Female : 1945 Arrival Date: 11/08/2022 Time: 18:36 Bed 4 Private MD: ED Physician Contreras Natarajan HPI: 11/08 23:40 This 77 yrs old Female presents to ER via Wheelchair with complaints of kb Shortness Of Breath. 23:40 The patient has shortness of breath at rest. Onset: The symptoms/episode began/occurred kb 3 day(s) ago. Duration: The symptoms are intermittent. The patient's shortness of breath is aggravated by supine position. Associated signs and symptoms: The patient has no apparent associated signs or symptoms. Severity of symptoms: At their worst the symptoms were mild moderate in the emergency department the symptoms have improved. The patient has experienced similar episodes in the past. The patient has not recently seen a physician. Pt reports intermittent shortness of breath, left arm pain and indigestion. States pain and indigestion resolved earlier today. Daughter also concerned about lower ext swelling, but pt reports the swelling is normal for her and better than it has been . Historical: - Allergies: 18:48 Augmentin; ph 18:48 Cipro; ph 18:48 Keppra; ph - PMHx: 18:48 Anxiety; Atrial Fib; CHF; Diabetes - IDDM; High Cholesterol; Hypertension; Kidney ph failure stage 4; Low HR; Myocardial infarction; neuropathy; Seizures; - PSHx: 18:48 Appendectomy; Hemorrhoidectomy; Pacemaker-Defib; ph - Immunization history:: Adult Immunizations unknown. - Social history:: Smoking status: unknown. ROS: 23:37 Constitutional: Negative for fever, chills, and weight loss, kb 23:37 Cardiovascular: Positive for edema, 23:37 Respiratory: Positive for shortness of breath, 23:37 Abdomen/GI: Positive for indigestion, Negative for abdominal pain, nausea, vomiting, and diarrhea, 23:37 All other systems are negative, 23:40 : Positive for urinary symptoms, urinary frequency, burning with urination, kb Exam: 19:19 Constitutional: This is a well developed, well nourished patient who is awake, alert, kb and in no acute distress. Head/Face: Normocephalic, atraumatic. ENT: Moist Mucous membranes Cardiovascular: Regular rate Respiratory: Respirations even and unlabored. No increased work of breathing. Talking in full sentences Abdomen/GI: Soft, non-tender. No distention Skin: Warm, dry with normal turgor. Normal color. MS/ Extremity: Pulses equal, no cyanosis. Neurovascular intact. Full, normal range of motion. Neuro: Awake and alert, GCS 15, oriented to person, place, time, and situation. Moves all extremities. Normal gait. 19:19 Cardiovascular: Edema: pedal edema, that is mild, 19:19 ECG was reviewed by the Attending Physician. Vital Signs: 18:50 BP 120 / 74; Pulse 90; Resp 18; Temp 97.5; Pulse Ox 99% on R/A; Weight 78.47 kg; Height ph 5 ft. 0 in. ; 20:03 BP 118 / 79; Pulse 90; Resp 16; Pulse Ox 98% on R/A; kd3 20:24 BP 125 / 75; Pulse 90; Resp 18; Pulse Ox 100% on R/A; kd3 22:03 BP 130 / 85; Pulse 91; Resp 20; Pulse Ox 100% on R/A; kd3 22:41 BP 130 / 85; Pulse 90; Resp 20; Pulse Ox 94% on R/A; kd3 23:43 BP 113 / 74; Pulse 90; Resp 19; Pulse Ox 100% on R/A; kd3 18:50 Body Mass Index 33.79 (78.47 kg, 152.4 cm) ph MDM: 18:44 Patient medically screened. kb 23:38 Data reviewed: vital signs, nurses notes. kb 23:38 Differential diagnosis: CHF exacerbation, Myocardial Infarction pulmonary edema. kb Consideration of Admission/Observation Escalation of care including admission/observation considered. admission considered but pt in no distress, serial troponin negative, oxygen saturation 97% on room air, creatinine improved from previous visit, chest x-ray stable from previous. Historians other than the Patient: Daughter/Son: daughter. Counseling: I had a detailed discussion with the patient and/or guardian regarding the historical points, exam findings, and any diagnostic results supporting the discharge/admit diagnosis, lab results, radiology results, the need for outpatient follow up, a family practitioner, to return to the emergency department if symptoms worsen or persist or if there are any questions or concerns that arise at home. ED course: Pt in agreement with outpatient follow up. 11/08 18:50 Order name: Basic Metabolic Panel; Complete Time: 20:09 kb 11/08 18:50 Order name: CBC with Diff; Complete Time: 19:50 kb 11/08 18:50 Order name: Magnesium; Complete Time: 20:09 kb 11/08 18:50 Order name: NT PRO-BNP; Complete Time: 20:09 kb 11/08 18:50 Order name: PT-INR; Complete Time: 19:57 kb 11/08 18:50 Order name: Troponin HS; Complete Time: 20:09 kb 11/08 18:50 Order name: SARS-COV-2 RT PCR; Complete Time: 20:23 kb 11/08 21:53 Order name: Troponin High Sensitivity; Complete Time: 23:09 kb 11/08 23:10 Order name: Urinalysis w/ reflexes; Complete Time: 23:34 kb 11/08 23:32 Order name: Urine Culture EDMS 11/08 18:50 Order name: XRAY Chest (1 view); Complete Time: 19:34 kb 11/08 18:50 Order name: EKG; Complete Time: 18:50 kb 11/08 18:50 Order name: Cardiac monitoring; Complete Time: 19:41 kb 11/08 18:50 Order name: EKG - Nurse/Tech; Complete Time: 19:41 kb 11/08 18:50 Order name: IV Saline Lock; Complete Time: 19:41 kb 11/08 18:50 Order name: Labs collected and sent; Complete Time: 19:41 kb 11/08 18:50 Order name: O2 Per Protocol; Complete Time: 19:42 kb 11/08 18:50 Order name: O2 Sat Monitoring; Complete Time: 19:41 kb EC:19 Rate is 89 beats/min. Rhythm is regular. QRS [place] is Normal. OK interval is normal at kb 142 msec. QRS interval is normal at 152 msec. QT interval is prolonged at 501 msec. Administered Medications: No medications were administered Disposition: 11/09 10:07 Co-signature as Attending Physician, Contreras Natarajan MD I reviewed the patient's care rt provided by the Advanced Practice Provider and agree with the diagnosis and treatment plan. Disposition Summary: 11/08/22 23:35 Discharge Ordered Notes: Location: Home kb Condition: Stable kb Diagnosis - Dyspnea kb - UTI/ Urinary tract infection, site not specified kb Followup: kb - With: Emergency Department - When: As needed - Reason: Worsening of condition Followup: kb - With: Private Physician - When: 2 - 3 days - Reason: Recheck today's complaints, Continuance of care, Re-evaluation by your physician Discharge Instructions: - Discharge Summary Sheet kb - Shortness of Breath, Adult, [id number] kb - Urinary Tract Infection, Adult, [id number] kb Forms: - Medication Reconciliation Form kb - Thank You Letter kb - Antibiotic Education kb - Prescription Opioid Use kb - Patient Portal Instructions kb - Leadership Thank You Letter kb Prescriptions: - Macrobid 100 mg Oral Capsule - take 1 capsule ORAL route every 12 hours for 10 days; 20 capsule; Refills: 0, kb Product Selection Permitted Signatures: Dispatcher [employer] EDLakshmi Daniels, TYLER-C CYTOMETRY TECHNOLOGIST-Mara Bell RN RN Franklin Jo RN RN Contreras Mclean MD MD rt
[2022-11-09 01:43] VITALS: TEMP 97.5
[2022-11-09 01:51] VITALS: BP 113/74; O2SAT 100
== END 2022-11-08 23:50 | disposition home or self-care (01) ==
LOC: ER 18:36
DX: R06.00 Dyspnea, unspecified (principal); N39.0 Urinary tract infection, site not specified; E11.22 Type 2 diabetes mellitus with diabetic chronic kidney disease; I13.0 Hypertensive heart and chronic kidney disease with heart failure and stage 1 through stage 4 chronic kidney disease, or unspecified chronic kidney disease; N18.4 Chronic kidney disease, stage 4 (severe); I50.9 Heart failure, unspecified; Z20.822 Contact with and (suspected) exposure to COVID-19; Z95.810 Presence of automatic (implantable) cardiac defibrillator; Z88.1 Allergy status to other antibiotic agents; Z88.8 Allergy status to other drugs, medicaments and biological substances
CPT/HCPCS: 36415; 71045; 80048; 81001; 83735; 83880; 84484; 85025; 85610; 87086; 87088; 87635

== ENCOUNTER → 2023-03-14 | Emergency (ER) | payer OTHER ==
[2023-03-14 19:33] LABS: Absolute Lymphocytes (CBC) 1.2 K/uL (0.7-4.9); Lymphocytes % 24.8 % (15.3-44.8); MCV 94.8 fL (80-100); Platelets 167 thou/uL (152-406); RBC Red Blood Cell Count 3.17 M/uL (3.86-4.86)
[2023-03-14 19:44] LABS: Potassium 4.2 mEq/L (3.5-5.1)
--- NOTE | 2023-03-14 20:13 | EDPHYS ---
Physician Documentation [facility] Name: Teena Simpson Age: 78 yrs Sex: Female : 1945 Arrival Date: 03/14/2023 Time: 18:23 Bed DX3 Private MD: Elaine Lamb ED Physician David Fields HPI: 03/14 21:07 This 78 yrs old Female presents to ER via Ambulatory with complaints of BUN kb HIGH. 21:07 Patient is a 78-year-old female who was called by her PCPs nurse and told to come to the ER for elevated BUN. Patient states she had routine blood work done 1 week ago. Denies any symptoms. States she is feels normal. States she been urinating within normal limits. Historical: - Allergies: 18:32 Augmentin; ap3 18:32 Cipro; ap3 18:32 Keppra; ap3 - PMHx: 18:32 Anxiety; Atrial Fib; CHF; Diabetes - IDDM; High Cholesterol; High Cholesterol; ap3 Hypertension; Kidney failure stage 4; Low HR; Myocardial infarction; neuropathy; Seizures; - PSHx: 18:32 Appendectomy; carpal tunnel (ke); Hemorrhoidectomy; Pacemaker-Defib; ap3 - Immunization history:: Client reports receiving the 2nd dose of the Covid vaccine, Flu vaccine is up to date. - Social history:: Smoking status: Patient denies any tobacco usage or history of. ROS: 21:05 Constitutional: Negative for fever, chills, and weight loss, kb 21:05 All other systems are negative, Exam: 21:05 Constitutional: This is a well developed, well nourished patient who is awake, alert, kb and in no acute distress. Head/Face: Normocephalic, atraumatic. ENT: Moist Mucous membranes Cardiovascular: Regular rate Respiratory: Respirations even and unlabored. No increased work of breathing. Talking in full sentences Abdomen/GI: Soft, non-tender. No distention Skin: Warm, dry with normal turgor. Normal color. MS/ Extremity: Pulses equal, no cyanosis. Neurovascular intact. Full, normal range of motion. Neuro: Awake and alert, GCS 15, oriented to person, place, time, and situation. Moves all extremities. Normal gait. Vital Signs: 18:33 BP 117 / 62; Pulse 92; Resp 18; Temp 97.3; Pulse Ox 98% ; Weight 74.39 kg; Height 5 ft. ap3 0 in. ; Pain 0/10; 18:33 Body Mass Index 32.03 (74.39 kg, 152.4 cm) ap3 18:33 Pain Scale: Adult ap3 MDM: 18:37 Patient medically screened. kb 21:05 Differential diagnosis: Chronic renal failure, acute renal failure, abnormal kb electrolytes. Data reviewed: vital signs, nurses notes. External Records Reviewed: Inpatient record: Lab results reviewed from previous admissions. Today's BUN and creatinine are more elevated than her last visit but have been this high in the past. Patient sees a rn coronary care unit already and will call tomorrow for follow-up. Care significantly affected by the following chronic conditions: Chronic Kidney Disease. Counseling: I had a detailed discussion with the patient and/or guardian regarding the historical points, exam findings, and any diagnostic results supporting the discharge/admit diagnosis, lab results, the need for outpatient follow up, to return to the emergency department if symptoms worsen or persist or if there are any questions or concerns that arise at home. 03/14 18:39 Order name: CBC with Diff; Complete Time: 19:38 kb 03/14 18:39 Order name: BMP; Complete Time: 19:49 kb Administered Medications: No medications were administered Disposition: 03/15 09:03 Co-signature as Attending Physician, David Fields MD I reviewed the patient's care rn provided by the Advanced Practice Provider and agree with the diagnosis and treatment plan. Disposition Summary: 03/14/23 20:13 Discharge Ordered Notes: Location: Home kb Condition: Stable kb Diagnosis - Chronic kidney disease, unspecified kb Followup: kb - With: Emergency Department - When: As needed - Reason: Worsening of condition Followup: kb - With: Private Physician - When: 2 - 3 days - Reason: Recheck today's complaints, Continuance of care, Re-evaluation by your physician Discharge Instructions: - Discharge Summary Sheet kb - Chronic Kidney Disease, Adult, [id number] kb Forms: - Medication Reconciliation Form kb - Thank You Letter kb - Antibiotic Education kb - Prescription Opioid Use kb - Patient Portal Instructions kb - Leadership Thank You Letter kb Signatures: Dispatcher [employer] Lakshmi Parada FNP-C FNP-Ckb Nieto, David, MD MD rn Fang Flaherty, WM RN ap3
--- NOTE | 2023-03-14 20:13 | ER ---
Nurse's Notes [facility] Name: Teena Simpson Age: 78 yrs Sex: Female : 1945 Arrival Date: 03/14/2023 Time: 18:23 Bed DX3 Private MD: Elaine Lamb Diagnosis: Chronic kidney disease, unspecified Presentation: 03/14 18:33 Chief complaint: Patient states: she was sent by her PCP for a reported elevated BUN. ap3 patient denies any pain at this time. Coronavirus screen: At this time, the client does not indicate any symptoms associated with coronavirus-19. Ebola Screen: No symptoms or risks identified at this time. Initial Sepsis Screen: Does the patient meet any 2 criteria? No. Patient's initial sepsis screen is negative. Does the patient have a suspected source of infection? No. Patient's initial sepsis screen is negative. Risk Assessment: Do you want to hurt yourself or someone else? Patient reports no desire to harm self or others. Onset of symptoms is unknown. 18:33 Method Of Arrival: Ambulatory ap3 18:33 Acuity: TYSON 3 ap3 Triage Assessment: 18:34 General: Appears in no apparent distress. Behavior is calm, cooperative, appropriate ap3 for age. Pain: Denies pain. Neuro: Level of Consciousness is awake, alert, obeys commands, Oriented to person, place, time, situation, Appropriate for age. Cardiovascular: Patient's skin is warm and dry. Respiratory: Airway is patent Respiratory effort is even, unlabored, Respiratory pattern is regular, symmetrical. Historical: - Allergies: 18:32 Augmentin; ap3 18:32 Cipro; ap3 18:32 Keppra; ap3 - PMHx: 18:32 Anxiety; Atrial Fib; CHF; Diabetes - IDDM; High Cholesterol; High Cholesterol; ap3 Hypertension; Kidney failure stage 4; Low HR; Myocardial infarction; neuropathy; Seizures; - PSHx: 18:32 Appendectomy; carpal tunnel (ke); Hemorrhoidectomy; Pacemaker-Defib; ap3 - Immunization history:: Client reports receiving the 2nd dose of the Covid vaccine, Flu vaccine is up to date. - Social history:: Smoking status: Patient denies any tobacco usage or history of. Screenin:34 [facility] ED Fall Risk Assessment (Adult). Abuse screen: Denies threats or abuse. ap3 Nutritional screening: No deficits noted. Tuberculosis screening: No symptoms or risk factors identified. Vital Signs: 18:33 BP 117 / 62; Pulse 92; Resp 18; Temp 97.3; Pulse Ox 98% ; Weight 74.39 kg; Height 5 ft. ap3 0 in. ; Pain 0/10; 18:33 Body Mass Index 32.03 (74.39 kg, 152.4 cm) ap3 18:33 Pain Scale: Adult ap3 ED Course: 18:29 Patient arrived in ED. es 18:29 Elaine Lamb is Private Physician. es 18:34 Triage completed. ap3 18:34 Arm band placed on right wrist. ap3 18:37 Lakshmi Kelly FNP-C is [facility]. kb 18:37 David Fields MD is Attending Physician. kb 19:25 Inserted saline lock: 22 gauge in left antecubital area, using aseptic technique. Blood as6 collected. 20:15 No provider procedures requiring assistance completed. as6 20:16 Adult w/ patient. Provided Education on: follow up. as6 20:16 IV discontinued, intact, bleeding controlled, No redness/swelling at site. Pressure as6 dressing applied. Administered Medications: No medications were administered Medication: 19:51 VIS not applicable for this client. as6 Outcome: 20:13 Discharge ordered by . kb 20:15 Discharged to home ambulatory, with family, as6 20:15 Condition: stable 20:15 Discharge instructions given to patient, family, Instructed on discharge instructions, follow up and referral plans. Demonstrated understanding of instructions, follow-up care, 20:18 Patient left the ED. as6 Signatures: Lakshmi Kelly FNP-C FNP-Ckb Salyer, Edna es Prokisch, Amanda RN RN ap3 Jermaine Disla, WM RN as6
[2023-03-15 00:20] VITALS: BP 117/62; TEMP 97.3; O2SAT 98
== END ==
LOC: ER 18:23
DX: E11.22 Type 2 diabetes mellitus with diabetic chronic kidney disease (principal); I13.0 Hypertensive heart and chronic kidney disease with heart failure and stage 1 through stage 4 chronic kidney disease, or unspecified chronic kidney disease; N18.4 Chronic kidney disease, stage 4 (severe); I50.9 Heart failure, unspecified; Z95.810 Presence of automatic (implantable) cardiac defibrillator; Z88.1 Allergy status to other antibiotic agents
CPT/HCPCS: 36415; 80048; 85025

== ENCOUNTER 2023-03-20 11:51 | Inpatient (IN) | payer OTHER ==
--- NOTE | 2023-03-20 12:45 | RAD REPORT ---
EXAM DESCRIPTION: RAD - Chest Single View - 03/20/2023 12:31 pm CLINICAL HISTORY: COUGH Chest pain. COMPARISON: Chest Single View dated 01/18/2023; Chest Single View dated 11/10/2022; Chest Single View dated 11/08/2022; Chest Single View dated 09/27/2022 FINDINGS: Portable technique limits examination quality. Mild to moderate pulmonary edema. The heart is moderately enlarged. Multi lead pacer/ defibrillator d evice. IMPRESSION: Mild to moderate CHF pattern.
[2023-03-20 12:48] LABS: Urine Bilirubin NEGATIVE (Negative); Urine Blood Negative (Negative); Urine Clarity Clear (Clear); Urine Color Colorless (Yellow); Urine Glucose NEGATIVE (Negative); Urine Protein NEGATIVE (Negative); Urine Urobilinogen Normal (Normal)
[2023-03-20] MEDS ORDERED: FOSPHENYTOIN PE 500 MG in NA CHLORIDE 0.9% 100 ML IV ONE (13:00)
[2023-03-20 13:08] LABS: Absolute Lymphocytes (CBC) 1.4 K/uL (0.7-4.9); Hematocrit 31.9 % (36.0-45.0); Lymphocytes % 24.5 % (15.3-44.8); MCV 94.9 fL (80-100); MPV 10.6 fL (7.6-11.3); Platelets 175 thou/uL (152-406); Protime INR 1.18; RBC Red Blood Cell Count 3.36 M/uL (3.86-4.86)
[2023-03-20 13:47] LABS: ALT/SGPT 42 U/L (13-56); AST/SGOT 28 U/L (15-37); Albumin 3.6 g/dL (3.4-5.0); Alkaline Phosphatase 132 U/L (45-117); BUN Blood Urea Nitrogen 112 mg/dL (7-18); Bicarbonate 24 mEq/L (21-32); Bilirubin Total 0.3 mg/dL (0.2-1.0); Glomerular Filtration Rate 22 ml/min (=/>90); Glucose Level 70 mg/dL (74-106); Magnesium 2.4 mg/dL (1.6-2.4); Protein, Total 7.6 g/dL (6.4-8.2); Sodium Level 139 mEq/L (136-145); Troponin High Sensitivity 24.1 pg/mL (<58.9)
[2023-03-20 13:49] LABS: Bilirubin Direct < 0.1 mg/dL (0-0.2); Bilirubin Indirect, Calculated ND mg/dL (0.2-0.8)
[2023-03-20 14:39] LABS: NT PRO-BNP 16816 pg/mL (<450)
[2023-03-20 15:40] LABS: Phenytoin (Dilantin) Level 21.3 mcg/mL (10.0-20.0)
--- NOTE | 2023-03-20 16:00 | EDPHYS ---
Physician Documentation [facility] Name: Teena Simpson Age: 78 yrs Sex: Female : 1945 Arrival Date: 03/20/2023 Time: 11:51 Bed 5 Private MD: Luis Alberto Verde HPI: 03/20 15:11 This 78 yrs old Female presents to ER via Ambulatory with complaints of jann Probable Seizure. 15:11 The patient presents after having a possible seizure episode, no tonic-clonic activity jann was appreciated. Character of seizure(s): Loss of consciousness: the patient did not lose consciousness, Motor activity: the motor activity is unknown. Seizure onset: the onset is not known. Context: the seizure(s) was witnessed, by no one. Seizure Hx: Last seizure: The patient's last seizure was approximately 1 year(s) ago. Associated injury: The patient did not suffer any apparent associated injury. Current symptoms: Currently, the patient is not experiencing any symptoms, the patient feels back to baseline. The patient has experienced similar episodes in the past, several times. Historical: - Allergies: 12:14 Augmentin; tl4 12:14 Cipro; tl4 12:14 Keppra; tl4 - PMHx: 12:14 Anxiety; Atrial Fib; CHF; Diabetes - IDDM; High Cholesterol; Hypertension; Kidney tl4 failure stage 4; Low HR; Myocardial infarction; neuropathy; Seizures; - PSHx: 12:14 Appendectomy; carpal tunnel; Hemorrhoidectomy; Pacemaker-Defib; tl4 - Immunization history:: Adult Immunizations unknown. - Social history:: Smoking status: Patient denies any tobacco usage or history of. - Family history:: not pertinent. ROS: 15:11 Constitutional: Negative for fever, chills, and weight loss, Eyes: Negative for injury, jann pain, redness, and discharge, ENT: Negative for injury, pain, and discharge, Neck: Negative for injury, pain, and swelling, Cardiovascular: Negative for chest pain, palpitations, and edema, Respiratory: Negative for shortness of breath, cough, wheezing, and pleuritic chest pain, Abdomen/GI: Negative for abdominal pain, nausea, vomiting, diarrhea, and constipation, Back: Negative for injury and pain, : Negative for injury, bleeding, discharge, and swelling, MS/Extremity: Negative for injury and deformity, Skin: Negative for injury, rash, and discoloration, Psych: Negative for depression, anxiety, suicide ideation, homicidal ideation, and hallucinations, Allergy/Immunology: Negative for hives, rash, and allergies, Endocrine: Negative for neck swelling, polydipsia, polyuria, polyphagia, and marked weight changes, Hematologic/Lymphatic: Negative for swollen nodes, abnormal bleeding, and unusual bruising, 15:11 Neuro: Positive for dizziness, seizure activity, weakness, Exam: 15:11 Constitutional: This is a well developed, well nourished patient who is awake, alert, jann and in no acute distress. Head/Face: Normocephalic, atraumatic. Eyes: Pupils equal round and reactive to light, extra-ocular motions intact. Lids and lashes normal. Conjunctiva and sclera are non-icteric and not injected. Cornea within normal limits. Periorbital areas with no swelling, redness, or edema. ENT: Nares patent. No nasal discharge, no septal abnormalities noted. Tympanic membranes are normal and external auditory canals are clear. Oropharynx with no redness, swelling, or masses, exudates, or evidence of obstruction, uvula midline. Mucous membranes moist. Neck: Trachea midline, no thyromegaly or masses palpated, and no cervical lymphadenopathy. Supple, full range of motion without nuchal rigidity, or vertebral point tenderness. No Meningismus. Chest/axilla: Normal chest wall appearance and motion. Nontender with no deformity. No lesions are appreciated. Cardiovascular: Regular rate and rhythm with a normal S1 and S2. No gallops, murmurs, or rubs. Normal PMI, no JVD. No pulse deficits. Respiratory: Lungs have equal breath sounds bilaterally, clear to auscultation and percussion. No rales, rhonchi or wheezes noted. No increased work of breathing, no retractions or nasal flaring. Abdomen/GI: Soft, non-tender, with normal bowel sounds. No distension or tympany. No guarding or rebound. No evidence of tenderness throughout. Back: No spinal tenderness. No costovertebral tenderness. Full range of motion. Female : Normal external genitalia. Skin: Warm, dry with normal turgor. Normal color with no rashes, no lesions, and no evidence of cellulitis. MS/ Extremity: Pulses equal, no cyanosis. Neurovascular intact. Full, normal range of motion. Psych: Awake, alert, with orientation to person, place and time. Behavior, mood, and affect are within normal limits. 15:11 ECG was reviewed by the Attending Physician. 15:11 Neuro: Orientation: is normal, appropriate for stated age, no acute changes, Mentation: is normal, appropriate for stated age, no acute changes, Memory: is normal, appropriate for stated age, no acute changes, Cranial nerves: grossly normal, is grossly normal based on the patient's age, no acute changes, Motor: is normal, is grossly normal based on the patient's age, moves all fours, strength is normal, Sensation: is normal, Gait: is steady, Deep tendon reflexes are 1 (trace) + in the bilateral brachioradialis, bicep, tricep and patellar and Achilles tendons, Babinski testing is normal, seizure activity, is not displayed by the patient, 15:16 ECG was reviewed by the Attending Physician. jann Vital Signs: 12:11 BP 112 / 76; Pulse 95; Resp 18; Temp 98(O); Pulse Ox 100% on R/A; Weight 74.39 kg; tl4 Height 5 ft. 0 in. ; Pain 0/10; 13:15 BP 105 / 70; Pulse 90; Resp 18; Pulse Ox 99% on R/A; ld1 14:52 BP 97 / 58; Pulse 90; Resp 16; Pulse Ox 99% ; ko1 19:36 BP 125 / 81; Pulse 87; Resp 16 S; Pulse Ox 100% on R/A; as6 12:11 Body Mass Index 32.03 (74.39 kg, 152.4 cm) tl4 12:11 Pain Scale: Adult tl4 [place] Coma Score: 18:59 Eye Response: spontaneous(4). Motor Response: obeys commands(6). Verbal Response: ld1 oriented(5). Total: 15. MDM: 12:15 Patient medically screened. jann 15:14 Differential diagnosis: cerebral vascular accident, drug overdose, cardiac arrhythmia, jann seizure, TIA. Data reviewed: vital signs, nurses notes, lab test result(s), EKG, radiologic studies. Consideration of Admission/Observation Escalation of care including admission/observation considered. I considered the following discharge prescriptions or medication management in the emergency department Medications were administered in the Emergency Department. See MAR. Independent interpretation of the following test(s) in the Emergency Department EKG: See my EKG interpretation above cafeteria monitor:. Test considered but Not performed: MRI: no mri brain. Care significantly affected by the following chronic conditions: Diabetes, Hypertension, Congestive Heart Failure, Obesity, Chronic Kidney Disease, a fib, high cholesterol. 03/20 12:16 Order name: Basic Metabolic Panel; Complete Time: 15:41 jann 03/20 12:16 Order name: CBC with Diff; Complete Time: 13:47 jann 03/20 12:16 Order name: LFT's; Complete Time: 15:41 jann 03/20 12:16 Order name: Magnesium; Complete Time: 15:41 [facility] 03/20 12:16 Order name: NT PRO-BNP; Complete Time: 15:41 jann 03/20 12:16 Order name: PT-INR; Complete Time: 13:47 jann 03/20 12:16 Order name: Troponin HS; Complete Time: 15:41 [facility] 03/20 12:16 Order name: Dilantin; Complete Time: 15:41 [facility] 03/20 12:16 Order name: Urinalysis w/ reflexes [facility] 03/20 17:12 Order name: Magnesium [facility] 03/20 17:12 Order name: Phosphorus [facility] 03/20 17:12 Order name: T4 Free [facility] 03/20 17:12 Order name: Thyroid Stimulating Hormone [facility] 03/20 17:12 Order name: Urinalysis w/ reflexes [facility] 03/20 17:12 Order name: Basic Metabolic Panel [facility] 03/20 17:12 Order name: Basic Metabolic Panel [facility] 03/20 17:12 Order name: CBC with Automated Diff [facility] 03/20 17:12 Order name: CBC with Automated Diff [facility] 03/20 17:12 Order name: NT PRO-BNP [facility] 03/20 17:12 Order name: NT PRO-BNP [facility] 03/20 12:16 Order name: XRAY Chest (1 view); Complete Time: 13:47 [facility] 03/20 17:16 Order name: Carotid Artery Bilateral [facility] 03/20 17:16 Order name: Echo with Doppler [facility] 03/20 12:16 Order name: EKG; Complete Time: 12:17 jann 03/20 17:12 Order name: CONS Physician Consult [facility] 03/20 12:16 Order name: Cardiac monitoring; Complete Time: 12:45 [facility] 03/20 12:16 Order name: EKG - Nurse/Tech; Complete Time: 12:45 [facility] 03/20 12:16 Order name: IV Saline Lock; Complete Time: 12:45 [facility] 03/20 12:16 Order name: Labs collected and sent; Complete Time: 12:45 [facility] 03/20 12:16 Order name: O2 Per Protocol; Complete Time: 12:21 [facility] 03/20 12:16 Order name: O2 Sat Monitoring; Complete Time: 12: [facility] 03/20 12:16 Order name: Seizure Precautions; Complete Time: 12:31 jann EC:16 Rate is 89 beats/min. Rhythm is regular. QRS [place] is Normal. ME interval is normal. QRS jann interval is normal. QT interval is normal. No Q waves. T waves are Normal. No ST changes noted. Clinical impression: Abnormal EKG without significant change and No evidence of ischemia. Interpreted by me. Reviewed by me. Administered Medications: 13:02 Drug: Fosphenytoin IVPB 500 mg IVPB once; (mix in 50 to 100mL NS) Route: IVPB; Site: ko1 right antecubital; 13:57 Follow up: IV Status: Completed infusion; IV Intake: 100ml ko1 16:12 Drug: Furosemide IVP 40 mg IVP once; give over 2 minutes Route: IVP; Site: right ld1 antecubital; 20:21 Follow up: Response: No adverse reaction as6 Disposition Summary: 03/20/23 15:59 Hospitalization Ordered Notes: Hospitalization Status: Inpatient Admission jann Provider: Philippe Rodas cha Location: Telemetry/MedSurg (Inpatient) jann Condition: Fair jann Problem: new jann Symptoms: have improved jann Bed/Room Type: Standard jann Room Assignment: 404(03/20/23 18:13) bd Diagnosis - Poisoning by hydantoin derivatives, accidental (unintentional), initial encounter jann - Epileptic seizures related to external causes, not intractable jann - Combined systolic (congestive) and diastolic (congestive) heart failure jann - Acute kidney failure, unspecified - ON CHRONIC BUN 112 jann - Obesity, unspecified jann Forms: - Medication Reconciliation Form jann - SBAR form jann - Leadership Thank You Letter jann Signatures: Dispatcher [employer] Kirsty Schafer Corey, MD MD cha Sims, Lauren, RN RN ld1 Ana Montesinos RN RN ko1 Celso Fernandez tl4 Jermaine Disla RN as6 Corrections: (The following items were deleted from the chart) 15:17 15:11 Rhythm is regular. QRS [place] is Normal. ME interval is shortened at 126 msec. QT jann interval is prolonged at 490 msec. T waves are Normal. No ST changes noted. Clinical impression: NSR w/ Non-specific ST/T Changes and No evidence of ischemia. Interpreted by me. Reviewed by me. jann 17:11 15:59 jann bd 18:13 17:11 229 bd bd
--- NOTE | 2023-03-20 16:00 | ER ---
Nurse's Notes [facility] Name: Teena Simpson Age: 78 yrs Sex: Female : 1945 Arrival Date: 03/20/2023 Time: 11:51 Bed 5 Private MD: Diagnosis: Poisoning by hydantoin derivatives, accidental (unintentional), initial encounter;Epileptic seizures related to external causes, not intractable;Combined systolic (congestive) and diastolic (congestive) heart failure;Acute kidney failure, unspecified-ON CHRONIC BUN 112;Obesity, unspecified Presentation: 03/20 12:11 Chief complaint: Patient states: Pt states she feels like she is going to have a tl4 seizure since Sunday. Last known seizure was approx 1 year ago. Pt states she takes medications as prescribed. Pt c/o bilateral leg weakness, dizziness, unable to sleep, headache. Pt denies changes in vision. Coronavirus screen: Vaccine status: Patient reports receiving the 2nd dose of the covid vaccine. At this time, the client does not indicate any symptoms associated with coronavirus-19. Ebola Screen: Patient negative for fever greater than or equal to 101.5 degrees Fahrenheit, and additional compatible Ebola Virus Disease symptoms Patient denies exposure to infectious person. Patient denies travel to an Ebola-affected area in the 21 days before illness onset. No symptoms or risks identified at this time. Initial Sepsis Screen: Does the patient meet any 2 criteria? No. Patient's initial sepsis screen is negative. Does the patient have a suspected source of infection? No. Patient's initial sepsis screen is negative. Risk Assessment: Do you want to hurt yourself or someone else? Patient reports no desire to harm self or others. Onset of symptoms was March 17, 2023. 12:11 Method Of Arrival: Ambulatory tl4 12:11 Acuity: [place] 3 tl4 Historical: - Allergies: 12:14 Augmentin; tl4 12:14 Cipro; tl4 12:14 Keppra; tl4 - PMHx: 12:14 Anxiety; Atrial Fib; CHF; Diabetes - IDDM; High Cholesterol; Hypertension; Kidney tl4 failure stage 4; Low HR; Myocardial infarction; neuropathy; Seizures; - PSHx: 12:14 Appendectomy; carpal tunnel; Hemorrhoidectomy; Pacemaker-Defib; tl4 - Immunization history:: Adult Immunizations unknown. - Social history:: Smoking status: Patient denies any tobacco usage or history of. - Family history:: not pertinent. Screenin:15 [facility] ED Fall Risk Assessment (Adult) History of falling in the last 3 months, ld1 including since admission No falls in past 3 months (0 pts). Abuse screen: Denies threats or abuse. Denies injuries from another. Nutritional screening: No deficits noted. Tuberculosis screening: No symptoms or risk factors identified. Assessment: 13:15 General: Appears in no apparent distress. comfortable, Behavior is calm, cooperative, ld1 appropriate for age. Pain: Denies pain. Neuro: Level of Consciousness is awake, alert, obeys commands, Oriented to person, place, time, situation. Cardiovascular: Capillary refill < 3 seconds Patient's skin is warm and dry. Respiratory: Airway is patent Respiratory effort is even, unlabored. GI: Abdomen is round non-distended. : No signs and/or symptoms were reported regarding the genitourinary system. EENT: No signs and/or symptoms were reported regarding the EENT system. Derm: No signs and/or symptoms reported regarding the dermatologic system. Musculoskeletal: No signs and/or symptoms reported regarding the musculoskeletal system. 17:30 Reassessment: attempted to call report but there is a different patient in the room ko1 assigned to 229. Charge nurse and pulp mill supervisor made aware. Will await a new room assignment. 18:41 Reassessment: Attempted to call report to 4th floor, no answer at 1440 or 1445. ko1 Vital Signs: 12:11 BP 112 / 76; Pulse 95; Resp 18; Temp 98(O); Pulse Ox 100% on R/A; Weight 74.39 kg; tl4 Height 5 ft. 0 in. ; Pain 0/10; 13:15 BP 105 / 70; Pulse 90; Resp 18; Pulse Ox 99% on R/A; ld1 14:52 BP 97 / 58; Pulse 90; Resp 16; Pulse Ox 99% ; ko1 19:36 BP 125 / 81; Pulse 87; Resp 16 S; Pulse Ox 100% on R/A; as6 12:11 Body Mass Index 32.03 (74.39 kg, 152.4 cm) tl4 12:11 Pain Scale: Adult tl4 [place] Coma Score: 18:59 Eye Response: spontaneous(4). Motor Response: obeys commands(6). Verbal Response: ld1 oriented(5). Total: 15. ED Course: 11:57 Patient arrived in ED. mg5 12:13 Triage completed. tl4 12:13 Luis Alberto Perez MD is Attending Physician. jann 12:14 Arm band placed on right wrist. tl4 12:22 Ana Montesinos, WM is Primary Nurse. ko1 12:33 XRAY Chest (1 view) In Process Unspecified. EDMS 12:45 Inserted saline lock: 22 gauge in right antecubital area, using aseptic technique. ld1 Blood collected. 13:15 Patient has correct armband on for positive identification. Placed in gown. Bed in low ld1 position. Call light in reach. Side rails up X2. threat monitoring analyst on. Pulse ox on. NIBP on. Door closed. Noise minimized. Warm blanket given. 13:15 No provider procedures requiring assistance completed. ld1 15:56 Philippe Rodas MD is Hospitalizing Provider. jann 18:59 Seizure precautions initiated. ld1 19:36 Patient admitted, IV remains in place. as6 20:21 Provided Education on: need for admit. as6 Administered Medications: 13:02 Drug: Fosphenytoin IVPB 500 mg IVPB once; (mix in 50 to 100mL NS) Route: IVPB; Site: ko1 right antecubital; 13:57 Follow up: IV Status: Completed infusion; IV Intake: 100ml ko1 16:12 Drug: Furosemide IVP 40 mg IVP once; give over 2 minutes Route: IVP; Site: right ld1 antecubital; 20:21 Follow up: Response: No adverse reaction as6 Medication: 13:15 VIS not applicable for this client. ld1 Intake: 13:57 IV: 100ml; Total: 100ml. ko1 Outcome: 15:59 Decision to Hospitalize by Provider. jann 18:58 Condition: stable ld1 18:58 Instructed on the need for admit, 20:20 Admitted to Tele accompanied by nurse, family with patient, via wheelchair, room 404, as6 with chart, Report called to Yoav BURK 20:21 Patient left the ED. as6 Signatures: Dispatcher [employer] EDOK Luis Alberto Perez MD MD cha Sims, Lauren RN RN ld1 Jermaine Disla, RN RN as6 Ana Montesinos, RN RN ko1 Mckayla Rojas mg5 Celso Fernandez 4
[2023-03-20] MEDS ORDERED: FUROSEMIDE 40 MG/4 ML VIAL ONE (16:08)
[2023-03-20] MEDS ORDERED: ACETAMINOPHEN 325 MG TABLET PO PRN (17:00)
[2023-03-20] MEDS ORDERED: HYDROCODONE/APAP 5/325 MG TAB PO PRN (17:00)
--- NOTE | 2023-03-20 17:18 | P.HP ---
Certification for Inpatient Patient admitted to: Observation With expected LOS: <2 Midnights Patient will require the following post-hospital care: None Practitioner: I am a practitioner with admitting privileges, knowledge of patient current condition, hospital course, and medical plan of care. Services: Services provided to patient in accordance with Admission requirements found in Title 42 Section 412.3 of the Code of Federal Regulations <GiovanniclaryIzaiahgabriela E - Last Filed: 03/21/23 00:51> Patient History Date of Service: 03/20/23 Reason for admission: Dizziness, Near syncope History of Present Illness: Patient is a 78-year-old female with a past medical history significant for anxiety disorder, A-fib, DM2, hypertension, PA, CKD, hyperlipidemia who presents with complaint of dizziness and near syncope. Patient reported that whenever she experiences such symptoms, she feels as if she is going to have a seizure but this time around patient did not experience any seizures. Family also indicated that patient did not have any seizure. Patient reported that she has not been able to sleep. Patient reported associated signs and symptoms of nausea, headache, poor appetite, fatigue, weakness and bilateral lower extremity edema. Patient denies any other signs or symptoms. Symptoms are aggravated or relieved by nothing. Patient was brought to the hospital for medical evaluation. - Past Medical/Surgical History Diabetic: Yes -: Seizures -: Atrial fibrillation on chronic anticoagulation -: Diabetes mellitus type 2insulin-dependent -: Hypertension -: Hyperlipidemia -: Chronic systolic congestive heart failure -: CAD -: CKD 4 -: neuropathy -: Systolic CHF- EF 20-25% -: defibrilator -: PNA -: defib/pacemaker placement x2 -: exploratory lap -: appendectomy -: Hemorrhoidectomy -: cyst removal of arms and feet Psychosocial/ Personal History: Patient lives at home with family - Family History Father -: Hypertension, Lung disease Mother -: Heart disease, Hypertension, Diabetes Sister -: Diabetes Brother -: Diabetes, Kidney disease - Social History Smoking Status: Never smoker Alcohol use: No CD- Drugs: No Caffeine use: No Place of Residence: Home <Torin Barragan E - Last Filed: 03/21/23 00:51> Date of Service: 03/21/23 <Philippe Rodas - Last Filed: 03/21/23 15:14> Allergies amoxicillin [From Augmentin] Adverse Reaction (Verified 11/09/22 14:41) Nausea/Vomiting ciprofloxacin Adverse Reaction (Verified 11/09/22 14:41) Nausea/Vomiting clavulanic acid [From Augmentin] Adverse Reaction (Verified 11/09/22 14:41) Nausea/Vomiting levetiracetam [From Keppra] Adverse Reaction (Verified 11/09/22 14:41) fast heart rate oxcarbazepine Adverse Reaction (Verified 11/09/22 14:41) fast heart beat Home Medications: Atorvastatin Calcium [Lipitor] 40 mg PO BEDTIME 08/07/21 Insulin NPH Human Isophane [Novolin N] 30 unit SQ SEECOM 08/07/21 PHENYTOIN ER Cap [Dilantin ER Cap*] 3 cap PO DAILY 08/07/21 Apixaban [Eliquis] 2.5 mg PO BID 07/12/22 Furosemide [Lasix*] 40 mg PO BID #60 tab 11/13/22 Ipratropium/Albuterol Sulfate [Iprat-Albut 0.5-3(2.5) mg/3 ml] 1 vial.neb IH Q4H 03/20/23 Metoprolol Tartrate 25 mg PO BEDTIME 03/20/23 Tiotropium Br/Olodaterol HCl [Stiolto Respimat Inhal [place]] 2 puff IH BID 03/20/23 Valsartan 1 tab PO BEDTIME 03/20/23 Review of Systems General: Weakness, Other (fatigue, poor appetite, dizziness, near syncope ) Eyes: Unremarkable ENT: Unremarkable Respiratory: SOB with Excertion Cardiovascular: Edema, Unremarkable Gastrointestinal: Nausea Genitourinary: Unremarkable Musculoskeletal: Pedal edema Integumentary: Unremarkable Neurological: Weakness, Other (FARLEY) Lymphatics: Unremarkable <Torin Barragan - Last Filed: 03/21/23 00:51> Physical Examination - Physical Exam General: Alert, Oriented x3, Cooperative HEENT: Atraumatic, PERRLA, Mucous membr. moist/pink, EOMI, Sclerae nonicteric Neck: Supple, 2+ carotid pulse no bruit, No LAD, Without JVD or thyroid abnormality Respiratory: Clear to auscultation bilaterally, Normal air movement Cardiovascular: Normal S1 S2, Edema, Irregular heart rate/rhythm Capillary refill: <2 Seconds Gastrointestinal: Normal bowel sounds, No tenderness Musculoskeletal: No clubbing, No tenderness, Swelling (BLE feet) Integumentary: No rashes Neurological: Normal speech, Normal tone, Normal affect Lymphatics: No axilla or inguinal lymphadenopathy - Studies Laboratory Data (last 24 hrs) 03/20/23 03/20/23 03/20/23 12:44 12:44 12:44 WBC 5.90 Hgb 11.0 L Hct 31.9 L Plt Count 175 PT 12.9 H INR 1.18 Sodium 139 Potassium 4.0 BUN 112 H Creatinine 2.24 H Glucose 70 L Magnesium 2.4 Total Bilirubin 0.3 AST 28 ALT 42 Alkaline Phosphatase 132 H <Torin Barragan - Last Filed: 03/21/23 00:51> Assessment and Plan - Plan --Acute on Chronic systolic CHF. Continue diuresis with Lasix. Daily weight and strict I/O. Cardiology consulted. Will await further recommendations. --Near syncope\dizziness. Echocardiogram pending to assess cardiac function/structures. Carotid Doppler pending to rule out any carotid artery stenosis. Will get some on orthostatic vital signs. -- History of seizures. Patient and family denies any seizure activity. Continue home medication. --CKD 4. Stable. Oil Winterizer consulted. We will continue to monitor renal functions. Will await further recommendations. --Atrial fibrillation. Continue Eliquis. --Hyperlipidemia. Continue statin. --Hypertension. Stable. Continue home medications. --DM2. BS monitoring with sliding scale insulin. --Anemia of chronic disease. H&H stable. We will continue to monitor hemoglobin and transfuse if less than 7.0. --Class I obesity. Likely secondary to excess calories intake. Patient counseled on weight reduction, diet and excise therapy. --Hx of PA. Continue Aspirin and statin --DVT prophylaxis with Eliquis. Discharge Plan: Home - Advance Directives Does patient have a Living Will: No Does patient have a Durable POA for Healthcare: No - Code Status/Comfort Care Code Status Assessed: Yes Physician Review: Patient Assessed, Agree with Above Assessment and Plan Critical Care: No <Torin Barragan - Last Filed: 03/21/23 00:51> - Plan Pt seen and examined. I agree with the note by the MANNEQUIN COLORING ARTIST. Pt is a 78 yo female with past medical history seizure d/o who presents with dizziness and syncope. Pt felt like she was about to have a seizure activity but she did not have any seizure acivity. Pt did not lose consciousness. She endorsed compliance with home med. On admission, lab studies show WBC 5.9, Hgb 11, K 4, Cr 2.24, Alk phos 132, BNP 6816 and Dilantin 21.7. At bedside, pt is in NAD. A/P: Acute on chronic CHF: BNP is 6816. Will continue lasix, daily weight, strict I/O and low salt diet. Near syncope: Will do syncope work up. f/u echo, carotid ultrasound and ort hostatic vital signs. Hx of Seizure d/o: Dilantiin level is 21.7. last seizure was last year. Will continue Dilantin and consult Neurology. Elevated BNP: BNP is 6816. Will follow Echo. FELICIA on CKD stage 4: Cr is 2.24. Will continue IVF, avoid nephrotoxins and monitor renal function. Will continue home med for other chronic medical problems. DVT ppx: SCD Code: full <Philippe Rodas - Last Filed: 03/21/23 15:14>
--- NOTE | 2023-03-20 20:20 | RAD REPORT ---
EXAM DESCRIPTION: - CP - 03/20/2023 8:10 pm CLINICAL HISTORY: Near Syncope, Dizziness Headache, drowsiness COMPARISON: Head C Spine Mpr Wo Con dated 10/20/2022 TECHNIQUE: Real-time sonographic evaluation of both carotid systems was performed. Doppler interroga tion was performed with waveform tracing bilaterally. FINDINGS: Normal high resistance waveforms are noted in both external carotid arteries. The common c arotid arteries and internal carotid arteries show normal low resistance waveforms. Focal moderate hard plaque is present right carotid bulb. Peak systolic and end diastolic velocity va lues and the ICA/CCA ratios are in the non-hemodynamically significant range. Antegrade flow seen in both vertebral arteries. IMPRESSION: Focal moderate hard plaque right carotid bulb. No evidence of a hemodynamically significant stenosis.
[2023-03-20] MEDS ORDERED: HEPARIN 5000 UNIT/ML 1 ML VIAL SQ SCH (21:00)
[2023-03-20] MEDS: INSULIN REGULAR (HUMAN) 100 UNIT/ML SQ SCH (21:00)
[2023-03-20] MEDS: APIXABAN 2.5 MG TABLET PO SCH (21:31)
[2023-03-20] MEDS: ASPIRIN 81 MG CHEWABLE TABLET PO SCH (21:31)
[2023-03-20] MEDS: METOPROLOL TAR 25 MG TAB PO SCH (21:31)
[2023-03-20] MEDS: PHENYTOIN ER 100 MG CAP PO SCH (21:31)
[2023-03-20] MEDS: ATORVASTATIN 40 MG TAB PO SCH (21:31)
[2023-03-20] MEDS: ONDANSETRON 4 MG/2 ML VIAL IV PRN (21:35)
[2023-03-21 00:11] LABS: Magnesium 2.4 mg/dL (1.6-2.4); Phosphorus 5.1 mg/dL (2.5-4.9); Thyroid Stimulating Hormone 0.837 uIU/mL (0.358-3.740)
[2023-03-21] MEDS: ONDANSETRON 4 MG/2 ML VIAL IV PRN ×3 (04:54→11:57)
[2023-03-21 05:55] LABS: Absolute Lymphocytes (CBC) 1.3 K/uL (0.7-4.9); Lymphocytes % 25.8 % (15.3-44.8); MPV 10.3 fL (7.6-11.3); Platelets 173 thou/uL (152-406); RBC Red Blood Cell Count 3.27 M/uL (3.86-4.86)
[2023-03-21 06:17] LABS: Potassium 4.3 mEq/L (3.5-5.1)
[2023-03-21] MEDS: INSULIN REGULAR (HUMAN) 100 UNIT/ML SQ SCH ×4 (07:30→22:17)
[2023-03-21] MEDS: ASPIRIN 81 MG CHEWABLE TABLET PO SCH (07:47)
[2023-03-21] MEDS: APIXABAN 2.5 MG TABLET PO SCH ×2 (07:47→20:28)
[2023-03-21] MEDS: PHENYTOIN ER 100 MG CAP PO SCH ×2 (07:47→20:27)
[2023-03-21] MEDS: METOPROLOL TAR 25 MG TAB PO SCH ×2 (07:47→20:27)
[2023-03-21] MEDS: SPIRONOLACTONE 25 MG TABLET PO SCH (07:47)
[2023-03-21] MEDS ORDERED: FUROSEMIDE 40 MG/4 ML VIAL IV SCH (09:00)
[2023-03-21] MEDS ORDERED: NA CHLORIDE 0.9% 250 ML IV ONE ×2 (10:15→10:31)
--- NOTE | 2023-03-21 12:24 | CON ---
Date of Consultation: 03/21/2023 Reason For Consultation: Elevated BUN, creatinine, fluid management, electrolyte imbalance. History Of Present Illness: This is a [id number] female with significant past medical history of hypertension, hyperlipidemia, chronic kidney disease stage IIIB/IV secondary to hypertension nephrosclerosis, cardiorenal and diabetes nephropathy, baseline creatinine around 2, GFR on the 30, CAD, complicated with congestive heart failure, seizure. The patient came to the hospital. According to her, she started feeling dizzy with changing position. For that reason, she thought she has a seizure. For that reason, increased her Dilantin from 300 daily to 500 for one day. Did not improve. Called her neurologist. Referred her to the hospital. Upon arrival to the hospital, found to have elevation in BUN and creatinine. For that reason, we have been consulted. The patient denied any chest pain. No nausea, no vomiting. The patient been on room air. The patient denied any orthopnea. Past Medical History: Includes: 1. Hypertension. 2. Hyperlipidemia. 3. Diabetes complicated with neuropathy and nephropathy. 4. CAD complicated with congestive heart failure, ejection fraction of 30%. 5. Chronic kidney disease, baseline creatinine 2, GFR of 20. 6. Atrial fibrillation. 7. Seizure. 8. Hyperlipidemia. Past Surgical History: Includes: 1. ICD. 2. Laparotomy. 3. Appendectomy. 4. Hemorrhoidectomy. Family History: Positive for CAD, chronic kidney disease and diabetes with hypertension. Social History: Lives with family. Denied smoking. Denied drinking. Denied drug abuse. Review of Systems: Head and Neck: Has headache. GI: No nausea, no vomiting. : No polyuria, no dysuria, no hematuria. Abstract Maker: No vaginal discharge. Respiratory: No shortness of breath. Cardiovascular: No orthopnea. Has leg swelling. Endocrine: No polydipsia. Skin: No rash. Neuro: Has dizziness, positional. Musculoskeletal: No joint pain. Physical Examination: General: When I saw the patient, the patient sitting in the bed, not in any distress. Vital Signs: Blood pressure of 99/63, pulse of 92, afebrile. Orthostatic was checked and was positive by standing, drop of blood pressure down to 77, systolic. Chest: Clear to auscultation. Heart: S1, S2. Systolic murmur. Abdomen: Soft, nontender. Extremities: Trace edema. Neurologic: Alert, no focality. Laboratory Data: WBC 4.9, hemoglobin 10.7. Sodium 140, potassium 4.3, bicarb 25, BUN 106, creatinine 2.2. Calcium 8.5, phosphorus 5.1. BNP 19,000. Chest x-ray showing cardiomegaly with congestion. Current Medications: The patient on include Tylenol, atorvastatin, metoprolol, spironolactone 25, aspirin, Dilantin, Lasix 40 mg b.i.d., Zofran, insulin. Assessment And Plan: 1. Chronic kidney disease stage 4 secondary to cardiorenal, diabetes, nephropathy and hypertension nephrosclerosis. Looked to me on the dry side. I am going to go ahead and hold the Lasix for the time being. We will resume either tomorrow or day after. Continue spironolactone. We will monitor. 2. Hypertension. Currently blood pressure on the lower side. We will hold all blood pressure medications. Lasix adjusted as above. 3. Diabetes. As by primary. 4. Atrial fibrillation, stable. 5. CAD with congestive heart failure. The patient looked to me on the dry side. Adjust the Lasix as above. 6. Acute kidney injury secondary to prerenal, over-diuresed as above. 7. Dizziness, mostly secondary to orthostatic. We will give the patient 250 of normal saline. Hold the Lasix and we will follow up. Time spent examining the patient [id number] reviewing that the lab and the radiology placing orders or discussing the case with the patient discussing the case with the valve steamer including hospitalist and nursing staff more than 75 minutes IFEANYI Voice ID: [id number] Report ID: [id number] MELISSA
[2023-03-21] MEDS: ATORVASTATIN 40 MG TAB PO SCH (20:28)
[2023-03-21] MEDS ORDERED: PROMETHAZINE INJ 25 MG/ML AMP IV PRN (20:40)
--- NOTE | 2023-03-21 20:44 | P.PN ---
Subjective Date of Service: 03/21/23 Chief Complaint: Dizziness, Near syncope Subjective: Improving Patient complaining of nausea and dizziness. Continue supportive care. <Torin Barragan - Last Filed: 03/21/23 20:40> Date of Service: 03/21/23 <Philippe Rodas - Last Filed: 03/21/23 22:32> Review of Systems General: Unremarkable Eyes: Unremarkable ENT: Unremarkable Respiratory: Unremarkable Cardiovascular: Unremarkable Gastrointestinal: Nausea Genitourinary: Unremarkable Musculoskeletal: Unremarkable Integumentary: Unremarkable Neurological: Other (Dizziness) Lymphatics: Unremarkable <Torin Barragan - Last Filed: 03/21/23 20:40> Physical Examination - Vital Signs Temperature: 97.3 F Blood Pressure: 108/59 Pulse: 129 Respirations: 18 Pulse Ox (%): 100 - Physical Exam General: Alert, In no apparent distress, Oriented x3, Cooperative HEENT: Atraumatic, PERRLA, EOMI Neck: Supple, JVD not distended Respiratory: Clear to auscultation bilaterally, Normal air movement Cardiovascular: No edema, Regular rate/rhythm, Normal S1 S2 Capillary refill: <2 Seconds Gastrointestinal: Normal bowel sounds, Soft and benign, No tenderness Musculoskeletal: No clubbing, No tenderness Integumentary: No rashes Neurological: Normal speech, Normal tone, Normal affect Lymphatics: No axilla or inguinal lymphadenopathy <Torin Barragan - Last Filed: 03/21/23 20:40> Assessment And Plan - Plan Interval history. 03/21/2023. Patient seen with family at bedside. Patient has positive orthostatic BP. Labor Relations Teacher on board. Patient continues to complain of dizziness and nausea. Echocardiogram pending. Phenergan as needed added to antiemetics regimen. Pest Control Service Technician on board for CKD management. Continue current treatment regimen. Will await further recommendations from consultants. -Acute on Chronic systolic CHF. Continue diuresis with Lasix. Daily weight and strict I/O. Cardiology consulted. Will await further recommendations. --Near syncope\dizziness. Echocardiogram pending to assess cardiac function/structures. Carotid Doppler pending to rule out any carotid artery stenosis. Will get some on orthostatic vital signs. -- History of seizures. Patient and family denies any seizure activity. Continue home medication. --CKD 4. Stable. Pest Control Service Technician consulted. We will continue to monitor renal functions. Will await further recommendations. --Atrial fibrillation. Continue Eliquis. --Hyperlipidemia. Continue statin. --Hypertension. Stable. Continue home medications. --DM2. BS monitoring with sliding scale insulin. --Anemia of chronic disease. H&H stable. We will continue to monitor hemoglobin and transfuse if less than 7.0. --Class I obesity. Likely secondary to excess calories intake. Patient counseled on weight reduction, diet and excise therapy. --Hx of [place]. Continue Aspirin and statin --DVT prophylaxis with Eliquis. Discharge Plan: Home Plan to discharge in: Greater than 2 days - Code Status/Comfort Care Code Status Assessed: Yes Physician Review: Patient Assessed, Agree with Above Assessment and Plan Critical Care: No <Torin Barragan - Last Filed: 03/21/23 20:40> - Plan Pt seen and examined. I agree with the note by the POWDER LINE REPAIRER. Continue lasix, strict I/O and daily weight. Follow up ECHO AND Carotid ultrasound. <Philippe Rodas - Last Filed: 03/21/23 22:32>
[2023-03-21 22:47] VITALS: BMI 32.3
[2023-03-22 05:56] LABS: Albumin 3.1 g/dL (3.4-5.0); Phosphorus 5.6 mg/dL (2.5-4.9); Potassium 4.8 mEq/L (3.5-5.1)
[2023-03-22] MEDS: INSULIN REGULAR (HUMAN) 100 UNIT/ML SQ SCH ×4 (07:30→20:41)
[2023-03-22] MEDS: ASPIRIN 81 MG CHEWABLE TABLET PO SCH (07:57)
[2023-03-22] MEDS: SPIRONOLACTONE 25 MG TABLET PO SCH (08:00)
[2023-03-22] MEDS: APIXABAN 2.5 MG TABLET PO SCH ×2 (08:00→20:45)
[2023-03-22] MEDS: PHENYTOIN ER 100 MG CAP PO SCH ×2 (08:00→20:46)
--- NOTE | 2023-03-22 11:10 | P.PN ---
Subjective Date of Service: 03/22/23 Chief Complaint: Dizziness, Near syncope Pt is sitting at the edge of the bed. She had v-tach last night and we started metoprolol. No other issues overnight. Review of Systems Unremarkable General: Weakness Eyes: Unremarkable ENT: Unremarkable Respiratory: Unremarkable Cardiovascular: Unremarkable Gastrointestinal: Unremarkable Genitourinary: Unremarkable Musculoskeletal: Unremarkable Integumentary: Unremarkable Neurological: Unremarkable Lymphatics: Unremarkable Physical Examination - Vital Signs Temperature: 97.6 F Blood Pressure: 106/55 Pulse: 88 Respirations: 17 Pulse Ox (%): 94 Assessment And Plan - Plan Acute on Chronic systolic CHF: Will continue lasix, strict I/O and daily weight. Consulted Cardiology. Near syncope\dizziness: Will follow up orthostatic vital signs, Echo and Carotid ultrasound. History of seizures: Patient and family denies any seizure activity. Continue dilantis. The dilantin level is 21.7. CKD 4. Stable. Cr is 2.4. Will avoid nephrotoxins andm onitor renal function. Teacher Resource consulted. Atrial fibrillation. Continue telemetry and Eliquis. Metoprolol is on hold due to hypotension. Hyperlipidemia: Continue statin. Hypertension: Hold metoprolol due to hypotension. DM2: Continue accuchek, SSI and ADA diet. Anemia of chronic disease: Hgb is 10.7. Will monitor H/H. Will continue to monitor hemoglobin and transfuse if less than 7.0. Class I obesity: Pt was advised to lose weight. Hx of CAD s/p [place]: Continue Aspirin and statin DVT prophylaxis: Eliquis. Dispo: Pending hospital course. Discharge Plan: Home Physician Review: Patient Assessed, Agree with Above Assessment and Plan
[2023-03-22] MEDS ORDERED: NA CHLORIDE 0.9% 250 ML IV SCH (12:00)
--- NOTE | 2023-03-22 13:12 | PN ---
Date of Progress Note: 03/22/2023 Subjective: The patient was admitted to the hospital with dizziness, found to have orthostatic hypotension. Yesterday, we discontinued diuresis. We started the patient on gentle hydration. Her nausea has been subsided. Dizziness has been resolved. Kidney function stay stable. No shortness of breath. The patient is still on room air. Physical Examination: Vital Signs: When I saw, the patient's blood pressure 106/55, pulse of 88, afebrile. Chest: Clear to auscultation. Heart: S1, S2 regular. Abdomen: Soft, nontender. Extremity: No edema. Neuro: Alert. No focality. Laboratory Data: Hemoglobin 10.7. Sodium 138, potassium 4.8, bicarb 27, BUN 111, creatinine 2.4, GFR of 20, calcium 8, phosphorus 5.6, albumin 3.1. Current Medications: The patient on, include promethazine, aspirin, Eliquis, metoprolol 12.5 b.i.d., spironolactone 25 daily, Dilantin, Lasix on hold, Zofran. Assessment And Plan: 1. Acute kidney injury secondary to prerenal on advanced chronic kidney disease. The patient complaining from nausea, no vomiting, no hyperkalemia. No significant acidosis. I do not see the need to initiate renal replacement therapy looked to me, the patient is still on the dry side. I am going to go ahead and give another 250 of normal saline and we will follow up the patient. I am going to discontinue spironolactone. We will hold Lasix for the time and we will resume after 48 hours. 2. Hypertension, controlled optimal with the presence of orthostatic hypotension. Hold diuresis. Start hydration. 3. Congestive heart failure. Currently, the patient on the dry side. We will start hydration as above. 4. Diabetes, as by primary. 5. Atrial fibrillation, stable, rate controlled. Time spent examining the patient [id number] reviewing that the lab and the radiology placing orders or discussing the case with the patient discussing the case with the cdl team truck driver including hospitalist and nursing staff more than 35 minutes IFEANYI Voice ID: [id number] Report ID: [id number] MELISSA
--- NOTE | 2023-03-22 13:32 | EKG ---
Test Date: 2023-03-20 Test Time: 12:51:56 Crown Pouncer: EVIN MEASUREMENT RESULTS: Intervals: Rate: 89 MS: 98 QRSD: 170 QT: 466 QTc: 566 [place]: P: 88 MS: 98 QRS: -67 T: 103 INTERPRETIVE STATEMENTS: AV sequential or dual chamber electronic pacemaker Compared to ECG 01/18/2023 04:15:53 Ventricular-paced complex(es) or rhythm no longer present Electronically Signed On 03-22-23 13:23:54 IMAGING CLERK by Armond Moore
--- NOTE | 2023-03-22 14:21 | ECHO ---
HEIGHT: 5 ft 0 in WEIGHT: 165 lb 11.2 oz DATE OF STUDY: 03/22/[address]: Torin Barragan 2-DIMENSIONAL: YES M.MODE: YES DOPPLER: YES COLOR FLOW: YES TDS: PORTABLE: YES DEFINITY: BUBBLE STUDY: DIAGNOSIS: CONGESTIVE HEART FAILURE CARDIAC HISTORY: CATHERIZATION: SURGERY: PROSTHETIC VALVE: PACEMAKER: MEASUREMENTS (cm) DIASTOLIC (NORMALS) SYSTOLIC (NORMALS) IVSd 1.0 (0.6-1.2) LA Diam 4.1 (1.9-4.0) LVEF 25-30% LVIDd 5.6 (3.5-5.7) LVIDs 5.6 (2.0-3.5) %FS LVPWd 1.0 (0.6-1.2) Ao Diam 2.5 (2.0-3.7) 2 DIMENSIONAL ASSESSMENT: RIGHT ATRIUM: NORMAL LEFT ATRIUM: ENLARGED RIGHT VENTRICLE: NORMAL LEFT VENTRICLE: DEPRESSED EJECTION FRACTION TRICUSPID VALVE: MILD TRICUSPID REGURGITATION MITRAL VALVE: MILD MITRAL REGURGITATION PULMONIC VALVE: NOT WELL SEEN AORTIC VALVE: NORMAL PERICARDIAL EFFUSION: NONE AORTIC ROOT: NORMAL LEFT VENTRICULAR WALL MOTION: MODERATE GLOBAL HYPOKINESIS DOPPLER/COLOR FLOW: SEE BELOW COMMENTS: 1. MODERATELY DEPRESSED LEFT VENTRICULAR EJECTION FRACTION 25-30% 2. MODERATE GLOBAL HYPOKINESIS 3. LEFT ATRIAL ENLARGEMENT 4. MODERATE DIASTOLIC DYSFUNCTION 5. MILD MITRAL REGURGITATION, TRICUSPID REGURGITATION TECHNOLOGIST: AMY WATTS
[2023-03-22] MEDS: ATORVASTATIN 40 MG TAB PO SCH (20:46)
[2023-03-22] MEDS: METOPROLOL TAR 25 MG TAB PO SCH (21:00)
[2023-03-23] MEDS: ONDANSETRON 4 MG/2 ML VIAL IV PRN (03:25)
[2023-03-23 03:54] LABS: Absolute Lymphocytes (CBC) 0.9 K/uL (0.7-4.9); Hematocrit 31.7 % (36.0-45.0); Lymphocytes % 9.3 % (15.3-44.8); MCV 95.9 fL (80-100); MPV 10.9 fL (7.6-11.3); Platelets 164 thou/uL (152-406); RBC Red Blood Cell Count 3.31 M/uL (3.86-4.86)
[2023-03-23 04:11] LABS: Albumin 3.3 g/dL (3.4-5.0); Phosphorus 5.5 mg/dL (2.5-4.9)
[2023-03-23 07:19] VITALS: TEMP 98
[2023-03-23] MEDS ORDERED: GLUCAGON 1 MG/VIAL IM PRN (07:28)
[2023-03-23] MEDS ORDERED: D50W 25 GM/50 ML SYRINGE IV PRN (07:28)
[2023-03-23] MEDS ORDERED: D10W 125 ML IV PRN (07:35)
[2023-03-23] MEDS: METOPROLOL TAR 25 MG TAB PO SCH (08:18)
[2023-03-23] MEDS: APIXABAN 2.5 MG TABLET PO SCH (08:19)
[2023-03-23] MEDS: INSULIN REGULAR (HUMAN) 100 UNIT/ML SQ SCH ×2 (08:20→11:30)
[2023-03-23] MEDS: ASPIRIN 81 MG CHEWABLE TABLET PO SCH (08:20)
[2023-03-23] MEDS: PHENYTOIN ER 100 MG CAP PO SCH (08:20)
[2023-03-23] MEDS ORDERED: FUROSEMIDE 40 MG/4 ML VIAL IV SCH (09:00)
[2023-03-23] MEDS ORDERED: INSULIN NPH (HUMAN) 100 UNITS/ML SQ SCH ×2 (09:00→21:00)
[2023-03-23] MEDS ORDERED: METOCLOPRAMIDE 10 MG/2mL INJ IV PRN (09:58)
--- NOTE | 2023-03-23 10:01 | P.PN ---
Subjective Date of Service: 03/23/23 Chief Complaint: Dizziness, Near syncope Pt is resting comfortably in bed. She complains of nausea. Will add regaln. BP has improved. No other complaints. Review of Systems Unremarkable General: Unremarkable Eyes: Unremarkable ENT: Unremarkable Respiratory: Unremarkable Cardiovascular: Unremarkable Gastrointestinal: Nausea Genitourinary: Unremarkable Musculoskeletal: Unremarkable Integumentary: Unremarkable Neurological: Unremarkable Lymphatics: Unremarkable Physical Examination - Vital Signs Temperature: 98 F Blood Pressure: 117/64 Pulse: 91 Respirations: 14 Pulse Ox (%): 96 - Physical Exam General: Alert, In no apparent distress, Oriented x3 HEENT: Atraumatic, Normocephalic, PERRLA Neck: Supple, 2+ carotid pulse no bruit Respiratory: Clear to auscultation bilaterally, Normal air movement, Diminished Cardiovascular: No edema, Normal pulses, Regular rate/rhythm, Normal S1 S2 Capillary refill: <2 Seconds Gastrointestinal: Normal bowel sounds, Soft and benign, Non-distended Musculoskeletal: No clubbing, No swelling Integumentary: No rashes, No breakdown Neurological: Normal gait, Normal speech, Normal strength at 5/5 x4 extr, Normal tone, Sensation intact Lymphatics: No axilla or inguinal lymphadenopathy Assessment And Plan - Plan Acute on Chronic systolic CHF: Will continue strict I/O and daily weight. Hold lasix. Consulted Cardiology. Near syncope\dizziness: Will follow up orthostatic vital signs, Echo and Carotid ultrasound. History of seizures: Patient and family denies any seizure activity. Continue dilantis. The dilantin level is 21.7. CKD 4. Stable. Cr is 2.44 <- 2.4. Will avoid nephrotoxins andm onitor renal function. News Intern consulted. Atrial fibrillation. Continue telemetry and Eliquis. Metoprolol is on hold due to hypotension. Nausea; No improvement with zofran. Will try reglan. Hyperlipidemia: Continue statin. Hypertension: Hold metoprolol due to hypotension. DM2: Continue accuchek, SSI and ADA diet. Anemia of chronic disease: Hgb is 10.7. Will monitor H/H. Will continue to monitor hemoglobin and transfuse if less than 7.0. Class I obesity: Pt was advised to lose weight. Hx of CAD s/p [place]: Continue Aspirin and statin DVT prophylaxis: Eliquis. Dispo: Pending hospital course. Discharge Plan: Home Physician Review: Patient Assessed, Agree with Above Assessment and Plan
[2023-03-23 11:27] VITALS: O2SAT 96
--- NOTE | 2023-03-23 12:01 | P.DS ---
Admission Date: 03/20/23 Discharge Date: 03/23/23 Disposition: ROUTINE DISCHARGE Discharge Condition: GOOD Reason for Admission: Dizziness, Near syncope Brief History of Present Illness: Patient is a 78-year-old female with a past medical history significant for anxiety disorder, A-fib, DM2, hypertension, MN, CKD, hyperlipidemia who presents with complaint of dizziness and near syncope. Patient reported that whenever she experiences such symptoms, she feels as if she is going to have a seizure but this time around patient did not experience any seizures. Family also indicated that patient did not have any seizure. Patient reported that she has not been able to sleep. Patient reported associated signs and symptoms of nausea, headache, poor appetite, fatigue, weakness and bilateral lower extremity edema. Patient denies any other signs or symptoms. Symptoms are aggravated or relieved by nothing. Patient was brought to the hospital for medical evaluation. Hospital Course: Pt is a 78yo female with past medical history of anxiety disorder, A-fib, DM2, hypertension, MN, CKD, and hyperlipidemia who presented with complaint of dizziness and near syncope. Patient thought she was about to have seizure but she did not have any seizure activity per family members. Patient reported insomnia at home. On admission, lab studies showed WBC 5.9, Hgb 11, K 4, Cr 2.24 , Alk phos 132, BNP 6816 and Dilantin 21.7. We admitted pt for acute systolic CHF exacerbation. We continued lasix, daily weight, strict I/O and low salt diet. Echo showed EF 25 - 30 % with moderate global hypokinesia. left atrial enlargement a nd moderate diastolic dysfunction. We held lasix and reduced metoprolol to 12.5mg po BID due to hypotension. Dilantin level was 21.7. We avoided nephrotoxins and monitored electrolytes. We controlled nausea with antiemetic. Pt was advised to check BP at home. She was in NAD prior to discharge. Vital Signs/Physical Exam: Temp Pulse Resp BP Pulse Ox 98 F 91 H 14 117/64 96 03/23/23 10:03/23/23 10:01 03/23/23 10:01 03/23/23 10:03/23/23 10:01 Laboratory Data at Discharge: WBC 9.80 thou/uL (4.3-10.9) 03/23/23 02:58 Hgb 10.7 g/dL (12.0-15.0) L 03/23/23 02:58 Hct 31.7 % (36.0-45.0) L 03/23/23 02:58 Plt Count 164 thou/uL (152-406) 03/23/23 02:58 PT 12.9 SECONDS (9.5-12.5) H 03/20/23 12:44 INR 1.18 03/20/23 12:44 Sodium 138 mEq/L (136-145) 03/23/23 02:58 Potassium 5.0 mEq/L (3.5-5.1) 03/23/23 02:58 BUN 108 mg/dL (7-18) H 03/23/23 02:58 Creatinine 2.44 mg/dL (0.55-1.02) H 03/23/23 02:58 Glucose 214 mg/dL (74-106) H 03/23/23 02:58 Phosphorus 5.5 mg/dL (2.5-4.9) H 03/23/23 02:58 Magnesium 2.4 mg/dL (1.6-2.4) 03/20/23 21:54 Total Bilirubin 0.3 mg/dL (0.2-1.0) 03/20/23 12:44 AST 28 U/L (15-37) 03/20/23 12:44 ALT 42 U/L (13-56) 03/20/23 12:44 Alkaline Phosphatase 132 U/L (45-117) H 03/20/23 12:44 Home Medications: Atorvastatin Calcium [Lipitor] 40 mg PO BEDTIME 08/07/21 Insulin NPH Human Isophane [Novolin N] 30 unit SQ SEECOM 08/07/21 PHENYTOIN ER Cap [Dilantin ER Cap*] 3 cap PO DAILY 08/07/21 Apixaban [Eliquis] 2.5 mg PO BID 07/12/22 Furosemide [Lasix*] 40 mg PO BID #60 tab 11/13/22 Ipratropium/Albuterol Sulfate [Iprat-Albut 0.5-3(2.5) mg/3 ml] 1 vial.neb IH Q4H 03/20/23 Tiotropium Br/Olodaterol HCl [Stiolto Respimat Inhal [place]] 2 puff IH BID 03/20/23 Metoprolol Tartrate [Lopressor*] 12.5 mg PO BID 30 Days #60 tab 03/23/23 Ondansetron [Zofran] 4 mg PO Q6H PRN 7 Days #28 tab 03/23/23 Valsartan [Diovan*] 160 mg PO DAILY 60 Days #60 tab 03/23/23 New Medications: Valsartan [Diovan*] 160 mg PO DAILY 60 Days #60 tab Metoprolol Tartrate [Lopressor*] 12.5 mg PO BID 30 Days #60 tab Ondansetron [Zofran] 4 mg PO Q6H PRN 7 Days #28 tab PRN Reason: Nausea / Vomiting Physician Discharge Instructions: Continue ad royal activity. Take home meds as prescribed. Take lasix 40mg po BID, metoprolol 12.5mg po BID and otherhome meds. Hold valsartan due to hypotension. Follow up with PCP within 1 week. Diet: AHA Activity: Ad royal Followup: Elaine Lamb MD [Primary Care Provider] - Armond Moore MD [ACTIVE - CAN ADMIT] -
[2023-03-23 13:09] VITALS: BP 105/55
--- NOTE | 2023-03-23 16:26 | CON ---
Date of Consultation: 03/22/2023 Reason For Consultation: Congestive heart failure. History Of Present Illness: This is a 78-year-old female with history of congestive heart failure, a trial fibrillation, diabetes, dyslipidemia, chronic kidney disease, presented to the emergency room w ith what seems to be feeling of having seizures. Generally is weak and knows the convulsions. Has m ild shortness of breath, lower extremity edema. No definite heart failure. No nausea, vomiting, chuy rrhea. No abdominal pain. No other complaints. Past Medical History: As outlined above in the HPI. Medications: Refer consult sheet for detailed list. Allergies: AMOXICILLIN, CIPRO, AUGMENTIN, OXCARBAZEPINE. Family History: No premature coronary artery disease or cancer. Social History: She does not smoke or drink. Does not use any drugs. Review of Systems: All systems reviewed are negative except as mentioned in HPI. Physical Examination: Vital Signs: Reviewed. Head and Neck: Pupils are equal, reactive to light. Intact eye movements. No JVD. No cervical lym phadenopathy. Neck supple. Thyroid is not enlarged. Lungs: Clear to auscultation bilaterally. No rhonchi, rales, or crackles. No accessory muscle use. Heart: Regular rate and rhythm. No extra sounds. Abdomen: Soft, nontender. Bowel sounds positive. No organomegaly. No masses or hernia. No rigidi ty or rebound. Extremities: No edema, clubbing, cyanosis. Intact pulses. Skin: No rashes. Neurologic: Alert, awake, oriented x3. No acute focal deficits appreciated. Investigations: Labs reviewed. Assessment/recommendation: 1.Acute on chronic systolic heart failure exacerbation. Gentle diuresis with Lasix 40 mg IV q.12 ho urs. Carefully monitor BUN, creatinine, electrolytes, and obtain an echocardiogram. Troponin was devante leon. 2.Atrial fibrillation, rate is controlled. Continue current management including Eliquis. 3.Dyslipidemia. Continue statin. SR/MODL Voice ID: [id number] Report ID: [id number]
== END 2023-03-23 13:23 | disposition home or self-care (01) | DRG 291 ==
LOC: ER 11:51 → ERHOLD 17:03 → 4TH 19:35
PROVIDERS: ADMIT Hospitalist; ATTEND Hospitalist
DX: I13.0 Hypertensive heart and chronic kidney disease with heart failure and stage 1 through stage 4 chronic kidney disease, or unspecified chronic kidney disease (principal); I50.23 Acute on chronic systolic (congestive) heart failure; N18.4 Chronic kidney disease, stage 4 (severe); N17.9 Acute kidney failure, unspecified; I47.20 Ventricular tachycardia, unspecified; E11.22 Type 2 diabetes mellitus with diabetic chronic kidney disease; E11.40 Type 2 diabetes mellitus with diabetic neuropathy, unspecified; D63.1 Anemia in chronic kidney disease; D63.8 Anemia in other chronic diseases classified elsewhere; I48.91 Unspecified atrial fibrillation; I95.1 Orthostatic hypotension; E66.09 Other obesity due to excess calories; E78.00 Pure hypercholesterolemia, unspecified; G40.909 Epilepsy, unspecified, not intractable, without status epilepticus; I25.10 Atherosclerotic heart disease of native coronary artery without angina pectoris; I25.2 Old myocardial infarction; Z88.1 Allergy status to other antibiotic agents; Z79.4 Long term (current) use of insulin; Z88.8 Allergy status to other drugs, medicaments and biological substances; Z90.49 Acquired absence of other specified parts of digestive tract; Z68.32 Body mass index [BMI] 32.0-32.9, adult; Z79.01 Long term (current) use of anticoagulants; Z95.810 Presence of automatic (implantable) cardiac defibrillator; Z79.899 Other long term (current) drug therapy
CPT/HCPCS: 36415; 71045; 80048; 80069; 80076; 80185; 81003; 82947; 83735; 83880; 84100; 84146; 84439; 84443; 84484; 85025; 85610; 93005; 93306; 93880; 97116; 97161; 97530; J1815; J1940; J2405; J2550; J7050; Q2009

== ENCOUNTER 2023-07-25 18:36 | Inpatient (IN) | payer OTHER ==
--- NOTE | 2023-07-25 19:57 | ER ---
Nurse's Notes [facility] Name: Teena Simpson Age: 78 yrs Sex: Female : 1945 Arrival Date: 07/25/2023 Time: 18:36 Bed 6 Private MD: Diagnosis: Unspecified combined systolic (congestive) and diastolic (congestive) heart failure;Acute kidney failure, unspecified-acute on chronic Presentation: 07/24 18:54 Chief complaint: Patient states: she was discharged from the hospital on 07/18 for ap3 defibrillator issues. patient reports that since then, she has been having swelling in her legs and ankles. then, last night patient reports she was getting short of breath when she was laying down. Coronavirus screen: At this time, the client does not indicate any symptoms associated with coronavirus-19. Ebola Screen: No symptoms or risks identified at this time. Initial Sepsis Screen: Does the patient meet any 2 criteria? No. Patient's initial sepsis screen is negative. Does the patient have a suspected source of infection? No. Patient's initial sepsis screen is negative. Risk Assessment: Do you want to hurt yourself or someone else? Patient reports no desire to harm self or others. Onset of symptoms is unknown. 18:54 Method Of Arrival: Wheelchair ap3 18:54 Acuity: YTSON 3 ap3 Triage Assessment: 18:56 General: Appears in no apparent distress. Behavior is calm, cooperative, appropriate ap3 for age. Pain: Denies pain. Neuro: Level of Consciousness is awake, alert, obeys commands, Oriented to person, place, time, situation, Appropriate for age. Cardiovascular: Patient's skin is warm and dry. Respiratory: Reports shortness of breath at rest Airway is patent Respiratory effort is even, unlabored, Respiratory pattern is regular, symmetrical, Onset: The symptoms/episode began/occurred yesterday. Historical: - Allergies: 18:56 Augmentin; ap3 18:56 Cipro; ap3 18:56 Keppra; ap3 - PMHx: 18:56 Anxiety; Atrial Fib; CHF; Diabetes - IDDM; High Cholesterol; Hypertension; Kidney ap3 failure stage 4; Low HR; Myocardial infarction; neuropathy; Seizures; - PSHx: 18:56 Appendectomy; Appendectomy; carpal tunnel; Hemorrhoidectomy; Pacemaker-Defib; ap3 - Immunization history:: Client reports receiving the 2nd dose of the Covid vaccine. - Infectious Disease History:: Denies. - Social history:: Smoking status: Patient denies any tobacco usage or history of. Screenin:57 Abuse screen: Denies threats or abuse. Nutritional screening: No deficits noted. ap3 Tuberculosis screening: No symptoms or risk factors identified. 20:48 [facility] ED Fall Risk Assessment (Adult) History of falling in the last 3 months, km8 including since admission No falls in past 3 months (0 pts) Confusion or Disorientation No (0 pts) Intoxicated or Sedated No (0 pts) Impaired Gait Yes (1 pt) Mobility Assist Device Used No (0 pt) Altered Elimination No (0 pt) Score/Fall Risk Level 0 - 2 = Low Risk Oriented to surroundings, Maintained a safe environment, Educated pt \T\ family on fall prevention, incl call for assistance when getting out of bed, Assessed \T\ reinforced patient's understanding of fall precautions. Assessment: 20:48 General: Appears in no apparent distress. uncomfortable, Behavior is calm, cooperative, km8 appropriate for age. Pain: Denies pain. Neuro: Level of Consciousness is awake, alert, obeys commands, Oriented to person, place, time, situation. Cardiovascular: Reports shortness of breath, Denies chest pain, Patient's skin is warm and dry. Edema non-pitting Rhythm is A-V sequential pacer. Respiratory: Reports shortness of breath on exertion Airway is patent Respiratory effort is even, unlabored, Respiratory pattern is regular, symmetrical, the patient has mild shortness of breath. GI: No signs and/or symptoms were reported involving the gastrointestinal system. : No signs and/or symptoms were reported regarding the genitourinary system. EENT: No signs and/or symptoms were reported regarding the EENT system. Derm: Skin is intact, is healthy with good turgor, Skin is dry, Skin is pink, warm \T\ dry. normal, Skin temperature is warm Bruising that is dark purple, on right arm and left arm. Musculoskeletal: Range of motion: intact in all extremities, Reports weakness in right leg and left leg. 22:24 Reassessment: Patient appears in no apparent distress at this time. Patient and/or tm6 family updated on plan of care and expected duration. Pain level reassessed. Patient is alert, oriented x 3, equal unlabored respirations, skin warm/dry/pink. Vital Signs: 18:54 BP 105 / 59; Pulse 89; Resp 19; Temp 98.4; Pulse Ox 100% on R/A; Weight 70.31 kg; ap3 Height 5 ft. 0 in. ; 20:48 BP 96 / 74; Pulse 90; Resp 20; Pulse Ox 99% on R/A; km8 22:23 BP 105 / 58; Pulse 90; Pulse Ox 100% on R/A; Pain 0/10; tm6 18:54 Body Mass Index 30.27 (70.31 kg, 152.4 cm) ap3 22:23 Pain Scale: Adult tm6 Isabel Coma Score: 20:48 Eye Response: spontaneous(4). Motor Response: obeys commands(6). Verbal Response: km8 oriented(5). Total: 15. ED Course: 18:39 Patient arrived in ED. rg4 18:50 Lakshmi Kelly FNP-C is [facility]. kb 18:50 Luis Alberto Perez MD is Attending Physician. kb 18:56 Triage completed. ap3 18:58 Arm band placed on right wrist. ap3 20:02 XRAY Chest (1 view) In Process Unspecified. EDMS 20:18 Maria E Cotto, RN is Primary Nurse. km8 20:45 Troponin HS Sent. tm6 20:45 NT PRO-BNP Sent. tm6 20:45 Magnesium Sent. tm6 20:45 CBC with Diff Sent. tm6 20:45 Basic Metabolic Panel Sent. tm6 20:46 Inserted saline lock: 22 gauge in left forearm, using aseptic technique. tm6 20:48 Patient has correct armband on for positive identification. Placed in gown. Bed in low km8 position. Call light in reach. Side rails up X2. Adult w/ patient. Provided Education on: call light use. Client placed on continuous cardiac and pulse oximetry monitoring. NIBP monitoring applied. video library assistant on. Pulse ox on. NIBP on. Warm blanket given. Pillow given. 20:48 Initial lab(s) drawn, by me, sent to lab. EKG done, by ED staff, reviewed by Lakshmi NAIDU. 22:06 US Extremity Venous W Compression [place] In Process Unspecified. EDMS 22:27 Shanice Steven MD is Hospitalizing Provider. kb 07/25 03:21 No provider procedures requiring assistance completed. Patient admitted, IV remains in tm6 place. Administered Medications: 07/24 23:01 Drug: Furosemide IVP 20 mg IVP once; give over 2 minutes Route: IVP; Site: left forearm;tm6 Medication: 20:48 VIS not applicable for this client. km8 Outcome: 19:56 Discharge ordered by . kb 22:27 Decision to Hospitalize by Provider. kb 07/25 03:21 Admitted to ER Hold. Please see [facility] for further documentation. tm6 Condition: stable Instructed on the need for admit, 18:28 Patient left the ED. iw Signatures: Dispatcher [employer] EDMS Lakshmi Kelly, TILTROTOR CREW CHIEF-C TILTROTOR CREW CHIEF-Ckb Ceci Anderson, RN RN iw Emilee Mckeon Amanda, RN RN ap3 Maria E Cotto RN RN km8 Dora Cadet RN RN 6
--- NOTE | 2023-07-25 19:57 | EDPHYS ---
Physician Documentation [facility] Name: Teena Simpson Age: 78 yrs Sex: Female : 1945 Arrival Date: 07/25/2023 Time: 18:36 Bed 6 Private MD: ED Physician Luis Alberto Perez HPI: 07/24 20:01 This 78 yrs old Female presents to ER via Wheelchair with complaints of kb Shortness Of Breath, Leg Swelling. 20:01 Pt is a 78 year old female who presents for lower extremity edema that started on kb 07/19/23 when she was released from [facility]. States it has been getting worse despite taking her regular lasix. Reports shortness of breath when she lays down that started yesterday. Denies chest pain. Historical: - Allergies: 18:56 Augmentin; ap3 18:56 Cipro; ap3 18:56 Keppra; ap3 - PMHx: 18:56 Anxiety; Atrial Fib; CHF; Diabetes - IDDM; High Cholesterol; Hypertension; Kidney ap3 failure stage 4; Low HR; Myocardial infarction; neuropathy; Seizures; - PSHx: 18:56 Appendectomy; Appendectomy; carpal tunnel; Hemorrhoidectomy; Pacemaker-Defib; ap3 - Immunization history:: Client reports receiving the 2nd dose of the Covid vaccine. - Infectious Disease History:: Denies. - Social history:: Smoking status: Patient denies any tobacco usage or history of. ROS: 20:00 Constitutional: As per HPI kb Exam: 20:00 Constitutional: This is a well developed, well nourished patient who is awake, alert, kb and in no acute distress. Head/Face: Normocephalic, atraumatic. ENT: Moist Mucous membranes Cardiovascular: Regular rate Respiratory: Respirations even and unlabored. No increased work of breathing. Talking in full sentences Skin: Warm, dry with normal turgor. Normal color. MS/ Extremity: Pulses equal, no cyanosis. Neurovascular intact. Full, normal range of motion. Neuro: Awake and alert, GCS 15, oriented to person, place, time, and situation. Moves all extremities. Normal gait. 20:00 Cardiovascular: Edema: 2+ edema to bilateral lower extremities, 20:51 ECG was reviewed by the Attending Physician. kb Vital Signs: 18:54 BP 105 / 59; Pulse 89; Resp 19; Temp 98.4; Pulse Ox 100% on R/A; Weight 70.31 kg; ap3 Height 5 ft. 0 in. ; 20:48 BP 96 / 74; Pulse 90; Resp 20; Pulse Ox 99% on R/A; km8 22:23 BP 105 / 58; Pulse 90; Pulse Ox 100% on R/A; Pain 0/10; tm6 18:54 Body Mass Index 30.27 (70.31 kg, 152.4 cm) ap3 22:23 Pain Scale: Adult tm6 [place] Coma Score: 20:48 Eye Response: spontaneous(4). Motor Response: obeys commands(6). Verbal Response: km8 oriented(5). Total: 15. MDM: 18:50 Patient medically screened. kb 20:01 Differential diagnosis: CHF exacerbation, pulmonary edema, dvt. Data reviewed: vital kb signs, nurses notes. Historians other than the Patient: Daughter/Son: daughter. 22:19 Consideration of Admission/Observation Patient was admitted/placed on observation. kb Escalation of care including admission/observation considered. 22:26 Management of patient was discussed with the following: Hospitalist: Dr Tenisha bey accepts pt for admission. Counseling: I had a detailed discussion with the patient and/or guardian regarding the historical points, exam findings, and any diagnostic results supporting the discharge/admit diagnosis, lab results, radiology results, the need for further work-up and treatment in the hospital. 07/24 19:01 Order name: Basic Metabolic Panel; Complete Time: 22:00 kb 07/24 19:01 Order name: CBC with Diff; Complete Time: 21:24 kb 07/24 19:02 Order name: Magnesium; Complete Time: 22:00 kb 07/24 19:02 Order name: NT PRO-BNP; Complete Time: 22:00 kb 07/24 19:02 Order name: Troponin HS; Complete Time: 22:00 kb 07/24 21:21 Order name: CBC Smear Scan; Complete Time: 21:24 EDMS 07/24 22:41 Order name: CBC with Automated Diff EDMS 07/24 22:41 Order name: CBC with Automated Diff EDMS 07/24 22:41 Order name: Comprehensive Metabolic Panel EDMS 07/24 22:41 Order name: Comprehensive Metabolic Panel EDMS 07/24 22:41 Order name: Troponin High Sensitivity EDMS 07/24 22:41 Order name: Troponin High Sensitivity EDMS 07/25 06:04 Order name: Glucose, Ancillary Testing EDMS 07/25 09:24 Order name: Glucose, Ancillary Testing EDMS 07/25 11:58 Order name: Glucose, Ancillary Testing EDMS 07/25 15:01 Order name: Glucose, Ancillary Testing EDMS 07/25 15:37 Order name: Glucose, Ancillary Testing EDMS 07/25 16:40 Order name: Glucose, Ancillary Testing EDMS 07/24 19:02 Order name: XRAY Chest (1 view); Complete Time: 20:19 kb 07/24 21:24 Order name: US Extremity Venous W Compression [place]; Complete Time: 22:14 kb 07/24 22:41 Order name: CONS Physician Consult EDVT 07/24 19:02 Order name: Cardiac monitoring; Complete Time: 20:25 kb 07/24 19:02 Order name: EKG - Nurse/Tech; Complete Time: 20:48 kb 07/24 19:02 Order name: IV Saline Lock; Complete Time: 20:45 kb 07/24 19:02 Order name: Labs collected and sent; Complete Time: 20:45 kb 07/24 19:02 Order name: O2 Per Protocol; Complete Time: 20:25 kb 07/24 19:02 Order name: O2 Sat Monitoring; Complete Time: 20:25 kb EC:51 Rate is 89 beats/min. Rhythm is regular. QRS [place] is Normal. ID interval is normal at kb 88 msec. QRS interval is normal at 190 msec. QT interval is prolonged at 584 msec. Administered Medications: 23:01 Drug: Furosemide IVP 20 mg IVP once; give over 2 minutes Route: IVP; Site: left forearm;tm6 Disposition Summary: 07/25/23 22:27 Hospitalization Ordered Notes: Hospitalization Status: Observation kb Provider: Shanice Steven Condition: Stable(07/25/23 22:27) kb Problem: new kb Symptoms: are unchanged kb Bed/Room Type: Standard kb Location: Telemetry/MedSurg (observation)(07/26/23 17:06) bc6 Room Assignment: [facility](07/26/23 17:06) bc6 Diagnosis - Unspecified combined systolic (congestive) and diastolic (congestive) heart failure kb - Acute kidney failure, unspecified - acute on chronic kb Forms: - Medication Reconciliation Form kb - SBAR form kb - Leadership Thank You Letter kb Signatures: Dispatcher [employer] EDMS Lakshmi Kelly, MOLECULAR GENETICIST-C TYLER-Ej Winslow, RN RN jb4 Fang Flaherty, RN RN ap3 Sonya Leong bc6 Dora Cadet, RN RN tm6 Corrections: (The following items were deleted from the chart) 19:02 19:02 BASIC METABOLIC PANEL+C.LAB.BRZ ordered. EDMS EDMS 19:02 19:02 CBC+H.LAB.BRZ ordered. EDMS EDMS 19:02 19:02 MAGNESIUM+C.LAB.BRZ ordered. EDMS EDMS 19:02 19:02 PROBNP+C.LAB.BRZ ordered. EDMS EDMS 19:02 19:02 Troponin High Sensitivity+C.LAB.BRZ ordered. EDMS EDMS 20:19 19:56 ED course: [facility] . kb kb 20:19 19:56 Home kb kb 20:19 19:56 Stable kb kb 20:19 19:56 Edema, unspecified kb kb 22:31 22:27 Telemetry/MedSurg (observation) kb jb4 22:31 22:27 kb jb4 07/25 17:06 06 22:31 [facility] ER HOLD jb4 bc6 07/25 17:06 06 22:31 ERHOLD- jb4 bc6
--- NOTE | 2023-07-25 20:17 | RAD REPORT ---
EXAM DESCRIPTION: RAD - Chest Single View - 07/25/2023 8:00 pm CLINICAL HISTORY: SWELLING Chest pain. COMPARISON: <Comparisons> FINDINGS: Portable technique limits examination quality. Mild interstitial pulmonary edema. The heart is moderately enlarged. No displaced fractures.Multi luis d pacer/defibrillator. IMPRESSION: Mild CHF.
[2023-07-25 21:02] LABS: Absolute Lymphocytes (CBC) 0.3 K/uL (0.7-4.9); Absolute Monocytes 0.2 K/uL (0.1-1.3); Absolute Neutrophil 4.4 K/uL (1.8-8.0); Basophils % 0.1 % (0-1.3); Hematocrit 32.1 % (36.0-45.0); Hemoglobin 10.4 g/dL (12.0-15.0); Lymphocytes % 6.3 % (15.3-44.8); MCH 33.1 pg (27.0-35.0); MCHC 32.4 g/dL (32.0-36.0); MPV 8.8 fL (7.6-11.3); Monocytes % 4.2 % (3.3-12.3); Neutrophils % 89.4 % (41.7-73.7); Nucleated Red Blood Cells % 0.2 % (0-0); Platelets 334 thou/uL (152-406); RBC Red Blood Cell Count 3.14 M/uL (3.86-4.86); Red Cell Distribution Width 22.5 % (12.1-15.2)
[2023-07-25 21:21] LABS: Anisocytosis 2+; Blood Morphology Comment NOTED (NOT SEEN); Platelet Estimate ADEQ; White Blood Cell Scan OK (OK)
[2023-07-25 21:48] LABS: Anion Gap 12.9 mEq/L (5.0-15.0); Troponin High Sensitivity 29.4 pg/mL (<58.9)
[2023-07-25 21:49] LABS: Magnesium 2.2 mg/dL (1.6-2.4); Potassium 4.9 mEq/L (3.5-5.1)
--- NOTE | 2023-07-25 22:11 | RAD REPORT ---
EXAM DESCRIPTION: US - Extrem Venous W Compress [place] - 07/25/2023 10:04 pm CLINICAL HISTORY: SWELLING Bilateral leg edema and swelling. COMPARISON: <Comparisons> TECHNIQUE: Real-time sonographic interrogation of the left and right lower extremity deep venous sys tems was performed. FINDINGS: Normal compressibility, flow augmentation, phasic flow and spontaneous flow is identified in both the left and right lower extremity deep venous systems. IMPRESSION: No sonographic evidence of left or right lower extremity deep venous thrombosis.
[2023-07-25] MEDS ORDERED: MORPHINE 2 MG/ML SYR IV PRN (22:34)
[2023-07-25] MEDS ORDERED: ALBUTEROL 2.5 MG/3 ML NEB SOL NEB PRN (22:34)
[2023-07-25] MEDS ORDERED: ACETAMINOPHEN 500 MG TAB PO PRN (22:34)
--- NOTE | 2023-07-25 22:34 | P.HP ---
Certification for Inpatient Patient admitted to: Observation With expected LOS: <2 Midnights Patient will require the following post-hospital care: None Practitioner: I am a practitioner with admitting privileges, knowledge of patient current condition, hospital course, and medical plan of care. Services: Services provided to patient in accordance with Admission requirements found in Title 42 Section 412.3 of the Code of Federal Regulations Patient History Date of Service: 07/26/23 Reason for admission: Shortness of breath and body swelling History of Present Illness: 78-year-old female with history of hypertension, DM, systolic CHF with last EF of 20 to 25%, status post recent admission for CHF exacerbation,3 weeks ago, status post admitted to [facility] last week for expected CABG but had PCI done and discharged 3 days ago. She, presented because of worsening shortness of breath since discharge from the hospital. Also admits to worsening bilateral lower extremity swelling. She states her Lasix dose was reduced from twice daily to daily at discharge. She admits to exertional dyspnea. She denies any cough or sputum. Arrival in the ED vital signs stable, noted with significant lower extremity edema and Doppler ultrasound shows no evidence of DVT. She has been admitted for CHF exacerbation. Laboratory studies showed creatinine up to 2.7, about baseline, BNP markedly elevated > 52k Allergies amoxicillin [From Augmentin] Adverse Reaction (Verified 11/09/22 14:41) Nausea/Vomiting ciprofloxacin Adverse Reaction (Verified 11/09/22 14:41) Nausea/Vomiting clavulanic acid [From Augmentin] Adverse Reaction (Verified 11/09/22 14:41) Nausea/Vomiting levetiracetam [From Keppra] Adverse Reaction (Verified 11/09/22 14:41) fast heart rate oxcarbazepine Adverse Reaction (Verified 11/09/22 14:41) fast heart beat Home Medications: Atorvastatin Calcium [Lipitor] 40 mg PO BEDTIME 08/07/21 Insulin NPH Human Isophane [Novolin N] 35 unit SQ DAILY 08/07/21 Furosemide [Lasix*] 40 mg PO BID #60 tab 11/13/22 Ipratropium/Albuterol Sulfate [Iprat-Albut 0.5-3(2.5) mg/3 ml] 1 vial.neb IH Q4H 03/20/23 Tiotropium Br/Olodaterol HCl [Stiolto Respimat Inhaler (60)] 2 puff IH BID 03/20/23 Insulin NPH Human Isophane [Novolin N] 20 unit SQ BEDTIME 06/30/23 PHENYTOIN ER Cap [Dilantin ER Cap*] 300 mg PO DAILY 06/30/23 carvediloL [Carvedilol] 6.25 mg PO BID 06/30/23 carvediloL [Coreg*] 3.125 mg PO BID 6AM 6PM tab 07/03/23 - Past Medical/Surgical History Diabetic: Yes -: Seizures -: Atrial fibrillation on chronic anticoagulation -: Diabetes mellitus type 2insulin-dependent -: Hypertension -: Hyperlipidemia -: Chronic systolic congestive heart failure -: CAD -: CKD 4 -: neuropathy -: Systolic CHF- EF 20-25% -: defibrilator -: PNA -: defib/pacemaker placement x2 -: exploratory lap -: appendectomy -: Hemorrhoidectomy -: cyst removal of arms and feet Psychosocial/ Personal History: Patient lives at home with family - Family History Father -: Hypertension, Lung disease Mother -: Heart disease, Hypertension, Diabetes Sister -: Diabetes Brother -: Diabetes, Kidney disease - Social History Smoking Status: Never smoker Alcohol use: No CD- Drugs: No Caffeine use: Yes Place of Residence: Home Review of Systems 10-point ROS is otherwise unremarkable Respiratory: Cough, Shortness of Breath Physical Examination - Physical Exam General: Alert, In no apparent distress, Oriented x3 HEENT: Atraumatic, Normocephalic, PERRLA Neck: 2+ carotid pulse no bruit, JVD not distended Respiratory: Normal air movement, Crackles/rales Cardiovascular: Regular rate/rhythm, Normal S1 S2 Gastrointestinal: Normal bowel sounds, Soft and benign, Non-distended, No ascit es Musculoskeletal: No clubbing, Swelling Integumentary: No rashes, No breakdown Neurological: Normal speech, Normal strength at 5/5 x4 extr, Sensation intact, Cranial nerves 3-12 intact - Studies Laboratory Data (last 24 hrs) 07/25/23 07/25/23 20:47 20:47 WBC 5.00 Hgb 10.4 L Hct 32.1 L Plt Count 334 Sodium 135 L Potassium 4.9 BUN 111 H Creatinine 2.73 H Glucose 342 H Magnesium 2.2 Assessment and Plan - Problems (Diagnosis) (1) Acute on chronic systolic heart failure Current Visit: No Status: Acute (2) Chronic systolic heart failure Current Visit: No Status: Acute (3) Dyspnea Onset Date: 09/21/15 Current Visit: No Status: Acute Qualifiers: (4) CKD (chronic kidney disease) Current Visit: No Status: Chronic Qualifiers: (5) Diabetes Current Visit: No Status: Chronic Qualifiers: (6) Hypertension Current Visit: No Status: Chronic Qualifiers: - Plan Impression Acute CHF exacerbation Fluid overload Hypertension DM CKD stage IV History of A-fib CAD Plan Admit to observation IV Lasix 80 every 8 Monitor intake and output Wean off O2 as tolerated Monitor potassium and magnesium level Renal consult to follow-up in a.m. Low-salt intake Follow-up plan for discharge with improving volume status Full code Discharge Plan: Home Plan to discharge in: 24 Hours - Advance Directives Does patient have a Living Will: Yes Does patient have a Durable POA for Healthcare: Yes Time Spent Managing Pts Care (In Minutes): 65
[2023-07-25] MEDS ORDERED: HYDRALAZINE HCL 20 MG/ML VIAL IV PRN (22:36)
[2023-07-25] MEDS ORDERED: D50W 25 GM/50 ML SYRINGE IV PRN (22:37)
[2023-07-25] MEDS ORDERED: GLUCAGON 1 MG/VIAL IM PRN (22:37)
[2023-07-25] MEDS ORDERED: FUROSEMIDE 20 MG/ 2ML VIAL ONE (22:50)
[2023-07-25] MEDS: FUROSEMIDE 40 MG/4 ML VIAL IV SCH (23:00)
[2023-07-26 00:57] VITALS: BMI 30.2
[2023-07-26] MEDS: INSULIN REGULAR (HUMAN) 100 UNIT/ML SQ SCH ×2 (02:00→21:00)
[2023-07-26 03:53] LABS: Absolute Lymphocytes (CBC) 0.9 K/uL (0.7-4.9); Absolute Monocytes 0.6 K/uL (0.1-1.3); Absolute Neutrophil 4.3 K/uL (1.8-8.0); Basophils % 0.3 % (0-1.3); Eosinophils % 0.7 % (0-4.4); Hematocrit 30.9 % (36.0-45.0); Hemoglobin 10.3 g/dL (12.0-15.0); Lymphocytes % 15.9 % (15.3-44.8); MCH 34.2 pg (27.0-35.0); MCHC 33.4 g/dL (32.0-36.0); MCV 102.3 fL (80-100); MPV 8.9 fL (7.6-11.3); Monocytes % 9.5 % (3.3-12.3); Neutrophils % 73.6 % (41.7-73.7); Nucleated Red Blood Cells % 0.2 % (0-0); Platelets 306 thou/uL (152-406); RBC Red Blood Cell Count 3.02 M/uL (3.86-4.86)
[2023-07-26 03:54] LABS: Red Cell Distribution Width 21.8 % (12.1-15.2)
[2023-07-26 04:24] LABS: Anion Gap 10.2 mEq/L (5.0-15.0)
[2023-07-26 04:25] LABS: Albumin 2.9 g/dL (3.4-5.0); Albumin/Globulin Ratio 0.8 (1.1-1.8); Bilirubin Total 0.4 mg/dL (0.2-1.0); Globulin 3.6 g/dL (2.3-3.5); Protein, Total 6.5 g/dL (6.4-8.2); Troponin High Sensitivity 28.7 pg/mL (<58.9)
[2023-07-26 04:27] LABS: Potassium 4.2 mEq/L (3.5-5.1)
[2023-07-26] MEDS ORDERED: ENOXAPARIN 40 MG/0.4 ML SQ SCH (09:00)
[2023-07-26] MEDS: ENOXAPARIN 30 MG/0.3 ML SQ SCH (09:00)
[2023-07-26] MEDS: PHENYTOIN ER 100 MG CAP PO SCH (09:00)
[2023-07-26] MEDS ORDERED: FUROSEMIDE 40 MG/4 ML VIAL ONE (09:19)
[2023-07-26] MEDS ORDERED: ENOXAPARIN 30 MG/0.3 ML SQ ONE (09:19)
[2023-07-26] MEDS ORDERED: INSULIN NPH (HUMAN) 100 UNITS/ML SQ ONE (10:50)
[2023-07-26] MEDS: INSULIN NPH (HUMAN) 100 UNITS/ML SQ SCH ×2 (11:08→20:56)
[2023-07-26] MEDS ORDERED: INSULIN REGULAR (HUMAN) 100 UNIT/ML ONE (11:59)
--- NOTE | 2023-07-26 13:36 | P.PN ---
Subjective Date of Service: 07/26/23 Chief Complaint: Shortness of breath and body swelling Pt is resting comfortably in bed. She is feeling better this am. Diuresing well s/p lasix. No other complaints. Review of Systems General: Unremarkable Eyes: Unremarkable ENT: Unremarkable Respiratory: Unremarkable Cardiovascular: Edema Gastrointestinal: Unremarkable Genitourinary: Unremarkable Musculoskeletal: Unremarkable Integumentary: Unremarkable Neurological: Unremarkable Lymphatics: Unremarkable Physical Examination - Vital Signs Temperature: 97.3 F Blood Pressure: 116/72 Pulse: 89 Respirations: 18 Pulse Ox (%): 98 - Physical Exam General: Alert, In no apparent distress, Oriented x3 HEENT: Atraumatic, Normocephalic, PERRLA Neck: Supple, 2+ carotid pulse no bruit, JVD not distended Respiratory: Clear to auscultation bilaterally, Normal air movement Cardiovascular: No edema, Normal pulses, Regular rate/rhythm, Normal S1 S2 Capillary refill: <2 Seconds Gastrointestinal: Normal bowel sounds, Soft and benign, Non-distended Musculoskeletal: No clubbing, No swelling, No contractures Integumentary: No rashes, No breakdown, No significant lesion Neurological: Normal gait, Normal speech, Normal strength at 5/5 x4 extr Lymphatics: No axilla or inguinal lymphadenopathy - Studies Laboratory Data (last 24 hrs) 07/25/23 07/25/23 20:47 20:47 WBC 5.00 Hgb 10.4 L Hct 32.1 L Plt Count 334 Sodium 135 L Potassium 4.9 BUN 111 H Creatinine 2.73 H Glucose 342 H Magnesium 2.2 Assessment And Plan - Plan Acute CHF exacerbation: Will continue lasix 80mg iv TID, strict I/O And daily weight. Will f/u Echo. Fluid overload: Due to CHF exacerbation. Hypertension: Will continue home med DM: Continue accuchek, SSI and ADA diet CKD stage IV: Cr is 2.62. Will avoid nephrotoxins and monitor renal function. History of A-fib: Continue Telemetry and BB Hx of Seizure: Will continue phenytoin. CAD: Continue coreg DVT ppx: SCD Code: Full code
[2023-07-26] MEDS ORDERED: ALBUTEROL 2.5 MG/3 ML NEB SOL NEB PRN (15:20)
[2023-07-26] MEDS ORDERED: NA CHLORIDE 0.9% 250 ML ONE (16:38)
[2023-07-26] MEDS: NA CHLORIDE 0.9% 250 ML IV ONE ×2 (16:53→18:47)
[2023-07-26] MEDS: carvediloL 3.125 MG TAB PO SCH (18:00)
--- NOTE | 2023-07-26 18:32 | CON ---
Date of Consultation: 07/26/2023 Reason For Consultation: Elevated BUN and creatinine, fluid management, overvolume. 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 The patient was in her regular state of health, apparently had interrogation for her ICD. Since then started having some shortness of breath, increased leg swelling. For that reason, the patient reported to the hospital, found to have elevation in BUN, creatinine, overvolume. For that reason, the patient was admitted. The patient denied taking any nonsteroidal. Denied other changes in her medication. Past Allergies: Include amoxicillin, Cipro Keppra, oxcarbazepine. Home Medications: Include atorvastatin, insulin, Lasix, ipratropium, carvedilol. Past Medical History: Includes seizure, AFib, congestive heart failure, CAD, status post PCI, complicated with congestive heart failure, diabetes complicated with neuropathy and nephropathy, hypertension, hyperlipidemia, chronic kidney disease stage 3B/4 secondary to cardiorenal, diabetes nephropathy. Congestive heart failure, ejection fraction of 25%. Past Surgical History: Include: 1. ICD. 2. Appendectomy. 3. Pacemaker. 4. Hemorrhoidectomy. 5. Cyst removal. Family History: Positive for hypertension, COPD, and CAD, diabetes. Social History: Denied smoking. Denied drinking. Denied drugs abuse. Review of Systems: Head and Neck: No red eye. No ear pain. GI: No nausea. No vomiting. : No polyuria. No dysuria. No hematuria. CAD DRAFTER: No vaginal discharge. Respiratory: Has shortness of breath. Cardiovascular: Has orthopnea. Has leg swelling. Endocrine: No polydipsia. Skin: No rash. Neuro: Has neuropathy. Has weakness. Musculoskeletal: Generalized bodyache. Physical Examination: Vital Signs: When I saw the patient, blood pressure of 116/72, pulse of 89, afebrile. Chest: Clear on the upper zone. Crackles on the base. Heart: S1, S2. Systolic murmur. Abdomen: Soft, nontender. Extremity: Trace edema. Neuro: Alert. No focality. Laboratory Data: WBC 4.9, hemoglobin 10.3, sodium 136, potassium 4.2, bicarb 25, BUN 102, creatinine 2.6, GFR of 18, calcium 8.1, back in June creatinine 1.8, GFR 29. Imaging: Chest x-ray, cardiomegaly with congestion. Current Medications: The patient on, it includes Lovenox, atorvastatin, carvedilol 3.125, hydralazine, lorazepam, Lasix 40 t.i.d. Assessment And Plan: 1. Acute kidney injury on advanced chronic kidney disease secondary to cardiorenal with exacerbation, looked to me on the overvolume side. I agree with the current dose of Lasix. We will monitor. We will send for basic workup. 2. Hypertension, controlled. We will utilize the blood pressure for more diuresis. 3. Coronary artery disease with congestive heart failure with exacerbation. We will optimize the fluid status for the patient. 4. Hyponatremia, dilutional, secondary to cardiorenal syndrome. We will diurese the patient. 5. Diabetes, as by Primary. Time spent examining the patient [id number], reviewing data, lab and radiology, placing order, discussing the case with the patient, discussing the case with the steam box hand including hospitalist and nursing staff more than 75 minutes. IFEANYI Voice ID: [id number] Report ID: [id number] [email or web address]
[2023-07-26] MEDS ORDERED: FUROSEMIDE 20 MG/ 2ML VIAL IV SCH (19:00)
[2023-07-26] MEDS: ATORVASTATIN 40 MG TAB PO SCH (20:56)
[2023-07-26] MEDS: APIXABAN 2.5 MG TABLET PO SCH (20:56)
[2023-07-26] MEDS: MIDODRINE HCL 5 MG TABLET PO SCH (20:56)
[2023-07-26] MEDS: AMIODARONE HCL 200 MG TAB PO SCH (21:17)
[2023-07-26] MEDS: D5W 1,000 ML IV SCH (22:45)
[2023-07-27 07:09] LABS: Absolute Eosinophils 0.2 K/uL (0-0.5); Absolute Lymphocytes (CBC) 0.9 K/uL (0.7-4.9); Absolute Monocytes 0.5 K/uL (0.1-1.3); Absolute Neutrophil 3.8 K/uL (1.8-8.0); Basophils % 0.6 % (0-1.3); Eosinophils % 3.1 % (0-4.4); Lymphocytes % 16.3 % (15.3-44.8); MCH 33.1 pg (27.0-35.0); MCHC 32.2 g/dL (32.0-36.0); MCV 102.8 fL (80-100); MPV 9.4 fL (7.6-11.3); Monocytes % 9.8 % (3.3-12.3); Neutrophils % 70.2 % (41.7-73.7); Nucleated Red Blood Cells % 0.1 % (0-0); Platelets 319 thou/uL (152-406); RBC Red Blood Cell Count 3.31 M/uL (3.86-4.86)
[2023-07-27 07:10] LABS: Albumin 2.8 g/dL (3.4-5.0); Anion Gap 11.5 mEq/L (5.0-15.0); Potassium 4.5 mEq/L (3.5-5.1)
[2023-07-27 07:50] LABS: White Blood Cell Scan OK (OK)
[2023-07-27 07:51] LABS: Anisocytosis 2+; Blood Morphology Comment NOTED (NOT SEEN); Macrocytosis 1+; Platelet Estimate ADEQ
[2023-07-27] MEDS: CLOPIDOGREL 75 MG TABLET PO SCH (08:01)
--- NOTE | 2023-07-27 14:02 | P.PN ---
Subjective Date of Service: 07/27/23 Chief Complaint: Shortness of breath and body swelling Pt is resting comfortably in bed. Her improved improved with gentle hydration. Holding lasix for now. No other complaints. Review of Systems General: Unremarkable Eyes: Unremarkable ENT: Unremarkable Respiratory: SOB with Excertion Cardiovascular: Unremarkable Gastrointestinal: Unremarkable Genitourinary: Unremarkable Musculoskeletal: Unremarkable Integumentary: Unremarkable Neurological: Unremarkable Lymphatics: Unremarkable Physical Examination - Vital Signs Temperature: 96.6 F Blood Pressure: 109/62 Pulse: 90 Respirations: 16 Pulse Ox (%): 99 - Physical Exam General: Alert, In no apparent distress, Oriented x3 HEENT: Atraumatic, Normocephalic, PERRLA Neck: Supple, 2+ carotid pulse no bruit Respiratory: Clear to auscultation bilaterally, Normal air movement Cardiovascular: No edema, Normal pulses, Regular rate/rhythm, Normal S1 S2, Edema Capillary refill: <2 Seconds Gastrointestinal: Normal bowel sounds, Soft and benign, Non-distended Musculoskeletal: No clubbing, No swelling Integumentary: No rashes, No breakdown, No significant lesion Neurological: Normal speech, Normal strength at 5/5 x4 extr, Normal tone, Sensation intact Lymphatics: No axilla or inguinal lymphadenopathy - Studies Laboratory Data (last 24 hrs) 07/27/23 07/27/23 06:04 06:04 WBC 5.30 Hgb 11.0 L Hct 34.0 L Plt Count 319 Sodium 137 Potassium 4.5 BUN 90 H Creatinine 2.30 H Glucose 101 Phosphorus 3.0 Assessment And Plan - Plan Acute CHF exacerbation: Will continue strict I/O and daily weight. Holding lasix due to hypotension. Will f/u Echo. Fluid overload: Due to CHF exacerbation. Hypertension: Will continue hold BP meds DM: Continue accuchek, SSI and ADA diet CKD stage IV: Cr is 2.3<- 2.62. Will avoid nephrotoxins and monitor renal function. History of A-fib: Continue Telemetry and BB Hx of Seizure: Will continue phenytoin. CAD: Continue coreg DVT ppx: SCD Code: Full code
[2023-07-27] MEDS ORDERED: MORPHINE 4 MG/ML SYR IV PRN (20:02)
[2023-07-27] MEDS: ONDANSETRON 4 MG/2 ML VIAL IV PRN (23:41)
--- NOTE | 2023-07-28 01:29 | PN ---
Date of Progress Note: 07/27/2023 Chief Complaint: Acute on chronic kidney injury, cardiorenal syndrome, hypotension. The patient has multiple medical problems, including history of chronic kidney disease stage 3B, advancing to stage 4. Subjective: The patient is a 78-year-old woman with past medical history significant for hypertensio n; hyperlipidemia; chronic kidney disease stage 3B, advancing to stage 4; cardiorenal syndrome; diabe dilan mellitus; diabetic nephropathy; coronary artery disease, complicated by congestive heart failure. She also has a seizure. The patient came to the hospital because of shortness of breath. She was found to have elevated BUN and creatinine, fluid overload. She was started although on IV fluid lupillo use of hypotension, workup is pending to rule out bacteremia. Review of Systems: The patient is feeling better today. Denies chest pain, palpitation, cough. Physical Examination: Lungs: Crackles at bases. Heart: S1, S2. Abdomen: Soft, benign, nontender. Extremities: Trace edema. Laboratory Workup: BUN 102, creatinine 2.6, GFR 18, calcium 8.1. Hemoglobin 10.3. Impression And Plan: 1.Acute kidney injury on advanced chronic kidney disease secondary to cardiorenal syndrome with exac erbation. The patient has peripheral edema. She was treated with Lasix, although she received also IV fluids because of hypotension. The patient has history of atrial fibrillation and is started on a miodarone. Cardiology is adjusting amiodarone dose. 2.Hypertension. Monitor blood pressure closely. Adjust medication. 3.Coronary artery disease with congestive heart failure exacerbation. Adjust diuretic to current vo lume status. 4.Hyponatremia, dilutional, secondary to cardiorenal syndrome. Continue p.o. fluid restriction and low-sodium diet. EB/MODL Voice ID: [id number] Report ID: [id number]
[2023-07-28 07:14] LABS: Absolute Eosinophils 0.2 K/uL (0-0.5); Absolute Lymphocytes (CBC) 0.8 K/uL (0.7-4.9); Absolute Monocytes 0.5 K/uL (0.1-1.3); Absolute Neutrophil 4.9 K/uL (1.8-8.0); Basophils % 0.5 % (0-1.3); Eosinophils % 3.3 % (0-4.4); Hematocrit 31.7 % (36.0-45.0); Hemoglobin 10.3 g/dL (12.0-15.0); Lymphocytes % 12.2 % (15.3-44.8); MCH 33.7 pg (27.0-35.0); MCHC 32.5 g/dL (32.0-36.0); MCV 103.6 fL (80-100); MPV 9.5 fL (7.6-11.3); Monocytes % 8.1 % (3.3-12.3); Neutrophils % 75.9 % (41.7-73.7); Platelets 266 thou/uL (152-406); RBC Red Blood Cell Count 3.06 M/uL (3.86-4.86); Red Cell Distribution Width 21.8 % (12.1-15.2)
[2023-07-28 07:28] LABS: Albumin 2.7 g/dL (3.4-5.0); Anion Gap 8.6 mEq/L (5.0-15.0); Phosphorus 2.8 mg/dL (2.5-4.9)
[2023-07-28 07:29] LABS: Potassium 4.6 mEq/L (3.5-5.1)
[2023-07-28] MEDS: AMIODARONE HCL 200 MG TAB PO SCH (08:05)
--- NOTE | 2023-07-28 11:45 | P.PN ---
Subjective Date of Service: 07/28/23 Chief Complaint: Shortness of breath and body swelling Pt is resting comfortably in bed. Her BP improved with gentle hydration. Holding lasix for now. Continue midodrine. No other complaints. Review of Systems General: Unremarkable Eyes: Unremarkable ENT: Unremarkable Respiratory: Unremarkable Cardiovascular: Unremarkable Gastrointestinal: Unremarkable Genitourinary: Unremarkable Musculoskeletal: Unremarkable Integumentary: Unremarkable Neurological: Unremarkable Lymphatics: Unremarkable Physical Examination - Vital Signs Temperature: 97.5 F Blood Pressure: 108/56 Pulse: 85 Respirations: 14 Pulse Ox (%): 96 - Physical Exam General: Alert, In no apparent distress, Oriented x3 HEENT: Atraumatic, Normocephalic, PERRLA Neck: Supple, 2+ carotid pulse no bruit, JVD not distended Respiratory: Clear to auscultation bilaterally, Normal air movement Cardiovascular: No edema, Normal pulses, Regular rate/rhythm, Normal S1 S2 Capillary refill: <2 Seconds Gastrointestinal: Normal bowel sounds, Soft and benign, Non-distended Musculoskeletal: No clubbing, No swelling, No contractures Integumentary: No breakdown, No significant lesion, No tenderness/swelling Neurological: Normal speech, Normal strength at 5/5 x4 extr, Normal tone Lymphatics: No axilla or inguinal lymphadenopathy Assessment And Plan - Plan Acute CHF exacerbation: Will continue strict I/O and daily weight. Holding lasix due to hypotension. Will f/u Echo. Consulted cardiology Fluid overload: Due to CHF exacerbation. Hypotension: Will continue hold BP meds. Continue midodrine. DM: Continue accuchek, SSI and ADA diet FELICIA on CKD stage IV: Cr is 2.42<- 2.3<- 2.62. Will avoid nephrotoxins and monitor renal function. History of A-fib: Continue Telemetry and BB Hx of Seizure: Will continue phenytoin. CAD: Continue coreg DVT ppx: SCD Code: Full code
--- NOTE | 2023-07-28 11:49 | EKG ---
Test Date: 2023-07-25 Test Time: 20:31:21 Business Services Administrator: KRYSTIAN MEASUREMENT RESULTS: Intervals: Rate: 89 HI: 88 QRSD: 190 QT: 480 QTc: 584 Watts: P: 111 HI: 88 QRS: -73 T: 110 INTERPRETIVE STATEMENTS: AV sequential or dual chamber electronic pacemaker Compared to ECG 07/04/2023 23:50:30 Ventricular-paced complex(es) or rhythm no longer present Electronically Signed On 07-28-23 11:47:54 CDT by Arden Garza
[2023-07-28] MEDS: INSULIN REGULAR (HUMAN) 100 UNIT/ML SQ SCH (16:30)
--- NOTE | 2023-07-28 18:47 | PN ---
Date of Progress Note: 07/28/2023 Chief Complaint: Acute on chronic kidney injury, cardiorenal syndrome, hypotension. The patient has multiple medical problems including history of chronic kidney disease, stage 3b advancing to stage 4 . History Of Present Illness: The patient is a 78-year-old woman with past medical history significant for hypertension; hyperlipidemia; chronic kidney disease, stage 3b, advancing to stage IV; cardioren al syndrome; diabetes mellitus; diabetic nephropathy; coronary artery disease, complicated by congest fernando heart failure. She also has seizure. The patient came to the hospital because of shortness of b reath. She was found to have elevated BUN and creatinine, fluid overload, edema of the legs. She wa s found to have hypotension, and she was treated with IV fluids. Workup is pending to rule out bacte remia. Review of Systems: Denies chest pain, palpitation. Physical Examination: General: Not in acute distress. Neck: Supple. Lungs: Equal chest expansion. Few crackles at the bases. Heart: S1, S2. Abdomen: Soft, benign, nontender. Extremities: Trace edema. Impression And Plan: 1.Acute on advanced chronic kidney disease secondary to cardiorenal syndrome with exacerbation. The patient has peripheral edema. The patient is treated with Lasix. She received IV fluids because of hypotensive episode. The patient has history of atrial fibrillation and was started on amiodarone. Cardiology is adjusting dose. 2.Hypertension. Monitor blood pressure closely and adjust medication as needed. 3.Coronary artery disease with congestive heart failure exacerbation. Continue diuretic. Monitor v olemia status. 4.Hyponatremia, dilutional, secondary to cardiorenal syndrome. Continue p.o. fluid restriction, low -sodium diet. EB/MODL Voice ID: [id number] Report ID: [id number]
[2023-07-28] MEDS: CLINDAMYCIN 600MG/D5W 50 ML IV ONE (19:50)
[2023-07-28] MEDS: CLINDAMYCIN PHOSPHATE 600 MG in NA CHLORIDE 0.9% 50 ML IV SCH (19:55)
[2023-07-28] MEDS: INSULIN NPH (HUMAN) 100 UNITS/ML SQ SCH (20:47)
[2023-07-28] MEDS: LORAZEPAM 0.5 MG TABLET PO PRN (23:20)
[2023-07-28] MEDS: D10W 125 ML IV PRN (23:29)
[2023-07-29] MEDS: CLINDAMYCIN 600MG/D5W 50 ML IV ONE (03:04)
[2023-07-29 06:31] LABS: Absolute Eosinophils 0.3 K/uL (0-0.5); Absolute Lymphocytes (CBC) 0.7 K/uL (0.7-4.9); Absolute Monocytes 0.4 K/uL (0.1-1.3); Absolute Neutrophil 3.2 K/uL (1.8-8.0); Basophils % 0.7 % (0-1.3); Eosinophils % 5.4 % (0-4.4); Hematocrit 29.9 % (36.0-45.0); Hemoglobin 9.7 g/dL (12.0-15.0); Lymphocytes % 15.2 % (15.3-44.8); MCH 33.4 pg (27.0-35.0); MCHC 32.4 g/dL (32.0-36.0); MPV 9.3 fL (7.6-11.3); Monocytes % 9.6 % (3.3-12.3); Neutrophils % 69.1 % (41.7-73.7); Nucleated Red Blood Cells % 0.1 % (0-0); Platelets 249 thou/uL (152-406); Red Cell Distribution Width 21.9 % (12.1-15.2)
[2023-07-29 06:48] LABS: Albumin 2.6 g/dL (3.4-5.0); Anion Gap 8.5 mEq/L (5.0-15.0); Phosphorus 3.7 mg/dL (2.5-4.9); Potassium 4.5 mEq/L (3.5-5.1)
--- NOTE | 2023-07-29 11:14 | P.PN ---
Subjective Date of Service: 07/29/23 Chief Complaint: Shortness of breath and body swelling Pt is resting comfortably in bed. Her BP improved with gentle hydration. Holding lasix for now. Continue midodrine. Wound culture from her right wrist is growing gram negative rods. Will f/u cx. No other complaints. Review of Systems General: Unremarkable Eyes: Unremarkable ENT: Unremarkable Respiratory: Unremarkable Cardiovascular: Unremarkable Gastrointestinal: Unremarkable Genitourinary: Unremarkable Musculoskeletal: Unremarkable Integumentary: Lesions Neurological: Unremarkable Lymphatics: Unremarkable Physical Examination - Vital Signs Temperature: 97.7 F Blood Pressure: 107/55 Pulse: 89 Respirations: 16 Pulse Ox (%): 98 - Physical Exam General: Alert, In no apparent distress, Oriented x3 HEENT: Atraumatic, Normocephalic, PERRLA Neck: Supple, 2+ carotid pulse no bruit, JVD not distended Respiratory: Clear to auscultation bilaterally, Normal air movement Cardiovascular: No edema, Normal pulses, Regular rate/rhythm, Normal S1 S2 Capillary refill: <2 Seconds Gastrointestinal: Normal bowel sounds, Soft and benign, Non-distended Musculoskeletal: No clubbing, No swelling Integumentary: No rashes, No tenderness/swelling, Skin lesion (right wrist wound) Neurological: Normal speech, Normal strength at 5/5 x4 extr, Normal tone, Sensation intact Lymphatics: No axilla or inguinal lymphadenopathy Assessment And Plan - Plan Acute CHF exacerbation: Will continue strict I/O and daily weight. Holding lasix due to hypotension. Will f/u Echo. Consulted cardiology Fluid overload: Due to CHF exacerbation. Hypotension: Will continue hold BP meds. Continue midodrine. DM: Continue accuchek, SSI and ADA diet FELICIA on CKD stage IV: Cr is 2.18<- 2.42<- 2.3<- 2.62. Will avoid nephrotoxins and monitor renal function. History of A-fib: Continue Telemetry and BB Right wrist wound: Culture is growing gram negative rods. Will f/u sensitivity. Hx of Seizure: Will continue phenytoin. CAD: Continue coreg DVT ppx: SCD Code: Full code
--- NOTE | 2023-07-29 14:50 | P.CNS ---
Date of Consult: 07/29/23 Chief Complaint: Shortness of breath and body swelling History of Present Illness: Patient with PMH of CAD, HFrEF, Atrial fibrillation, with recent Complex PCI of LM/LAD/LCX presented with worsening SOB since she was discharged from the hospital associated with bilateral lower extremities edema, denies chest pain, no palpitations, no syncope. Allergies amoxicillin [From Augmentin] Adverse Reaction (Verified 11/09/22 14:41) Nausea/Vomiting ciprofloxacin Adverse Reaction (Verified 11/09/22 14:41) Nausea/Vomiting clavulanic acid [From Augmentin] Adverse Reaction (Verified 11/09/22 14:41) Nausea/Vomiting levetiracetam [From Keppra] Adverse Reaction (Verified 11/09/22 14:41) fast heart rate oxcarbazepine Adverse Reaction (Verified 11/09/22 14:41) fast heart beat Home Medications: Atorvastatin Calcium [Lipitor] 40 mg PO BEDTIME 08/07/21 Insulin NPH Human Isophane [Novolin N] 15 unit SQ DAILY 08/07/21 Insulin NPH Human Isophane [Novolin N] 15 unit SQ BEDTIME 06/30/23 PHENYTOIN ER Cap [Dilantin ER Cap*] 300 mg PO DAILY 06/30/23 Amiodarone HCl [Cordarone Tab] 200 mg PO BID 07/26/23 Apixaban [Eliquis *] 2.5 mg PO BID 07/26/23 Aspirin [Aspirin EC] 81 mg PO DAILY 07/26/23 Clopidogrel Bisulfate [Plavix] 75 mg PO DAILY 07/26/23 Furosemide [Lasix*] 40 mg PO DAILY 07/26/23 Metoprolol Succinate [Toprol Xl*] 25 mg PO DAILY 07/26/23 carvediloL [Carvedilol] 6.25 mg PO BID 07/26/23 predniSONE [Prednisone] 50 mg PO DAILY 07/26/23 - Past Medical/Surgical History Diabetic: Yes -: Seizures -: Atrial fibrillation on chronic anticoagulation -: Diabetes mellitus type 2insulin-dependent -: Hypertension -: Hyperlipidemia -: Chronic systolic congestive heart failure -: CAD -: CKD 4 -: neuropathy -: Systolic CHF- EF 20-25% -: defibrilator -: PNA -: defib/pacemaker placement x2 -: exploratory lap -: appendectomy -: Hemorrhoidectomy -: cyst removal of arms and feet Psychosocial/ Personal History: Patient lives at home with family - Family History Father Medical History: Hypertension, Lung disease Mother Medical History: Heart disease, Hypertension, Diabetes Sister Medical History: Diabetes Brother Medical History: Diabetes, Kidney disease - Social History Smoking Status: Unknown if ever smoked Alcohol use: No CD- Drugs: No Caffeine use: Yes Place of Residence: Home Review of Systems 10-point ROS is otherwise unremarkable Physical Examination Temp Pulse Resp BP Pulse Ox 97.7 F 89 16 106/53 L 100 07/29/23 12:00 07/29/23 12:00 07/29/23 12:00 07/29/23 12:00 07/29/23 12:00 General: Alert, In no apparent distress HEENT: Atraumatic, PERRLA, Mucous membr. moist/pink, EOMI, Sclerae nonicteric Neck: Supple, 2+ carotid pulse no bruit, No LAD, Without JVD or thyroid abnormality Respiratory: Diminished, Crackles/rales Cardiovascular: Regular rate/rhythm, Normal S1 S2, Edema Gastrointestinal: Normal bowel sounds, No tenderness Musculoskeletal: No tenderness Integumentary: No rashes Neurological: Normal gait, Normal speech, Normal tone, Normal affect Lymphatics: No axilla or inguinal lymphadenopathy - Problems (1) Acute on chronic systolic heart failure Current Visit: No Status: Acute Plan: patient was started on Lasiz 20 mg IV TID, will monitor her response and her input and output and adjust accordingly. Continue Coreg 3.125 mg po BID Continue Midodrine for BP support. (2) Atrial fibrillation with RVR Current Visit: No Status: Acute Plan: Patient is currently in sinus rhythm. Continue Amiodarone 200 mg daily Continue Coreg 3.125 mg po BID Continue Eliquis 2.5 mg po BID (3) Coronary artery disease Current Visit: No Status: Chronic Plan: s/p recent complex PCI on LM/LAD and LCX Continue Plavix 75 mg daily Continue ASA 81 mg daily Continue Lipitor 40 mg daily. Qualifiers: Coronary Disease-Associated Artery/Lesion type: [place] artery [place] vs. transplanted heart: [place] heart Associated angina: without angina Qualified Code(s): I25.10 - Atherosclerotic heart disease of [place] coronary artery without angina pectoris
[2023-07-29] MEDS ORDERED: CLINDAMYCIN PHOSPHATE 600 MG in NA CHLORIDE 0.9% 50 ML IV SCH (21:00)
--- NOTE | 2023-07-29 22:58 | PN ---
Date of Progress Note: 07/29/2023 Chief Complaint: Acute on chronic kidney injury, cardiorenal syndrome, hypotensive episode. The glenna galloway has multiple medical problems including history of chronic kidney disease, stage 3b advancing to stage IV. Subjective: She is a 78-year-old woman with past medical history significant for hypertension; hyper lipidemia; chronic kidney disease, stage 3b, advancing to stage IV; cardiorenal syndrome; diabetes me llitus with renal manifestation; proteinuria; coronary artery disease, complicated by congestive hear t failure. She has also seizure disorder. The patient came to the hospital because of shortness of breath. Cardiology is ordering workup. The patient recently was started on amiodarone. Diuretic do se was increased. The patient had episodes of hypotension. Denies syncope. Review of Systems: Denies chest pain, palpitation. Physical Examination: Lungs: Diminished breath sounds at bases. Heart: S1, S2. Abdomen: Soft. Extremities: Trace edema. Impression And Plan: Acute on advanced chronic kidney disease secondary to cardiorenal syndrome. Hy pertensive kidney disease and diabetes mellitus with renal manifestation. The patient has peripheral edema. She has chronic cardiorenal syndrome recently. Renal function has declined secondary to hyp otensive episode. The patient received IV fluids to prevent hypotension. The patient has history of atrial fibrillation and is on amiodarone. Cardiology is adjusting medication dosage. 1.Hypertension. Monitor blood pressure closely. 2.Coronary artery disease with congestive heart failure. Continue diuretics. 3.Hyponatremia, dilutional, secondary to cardiorenal syndrome. Continue p.o. fluid restriction, low -sodium diet. MANOJ/CAMERON Voice ID: [id number] Report ID: [id number]
[2023-07-30 07:18] LABS: Albumin 2.6 g/dL (3.4-5.0); Anion Gap 8.9 mEq/L (5.0-15.0); Phosphorus 3.6 mg/dL (2.5-4.9)
[2023-07-30 07:19] LABS: Potassium 4.9 mEq/L (3.5-5.1)
--- NOTE | 2023-07-30 09:16 | P.PN ---
Subjective Date of Service: 07/30/23 Chief Complaint: Shortness of breath and body swelling Admitted for acute on chronic heart failure, noted to have hypotension, started on midodrine, nephrology following - Physical Exam General: Alert, In no apparent distress, Oriented x3 HEENT: Atraumatic, Normocephalic, PERRLA Neck: Supple, 2+ carotid pulse no bruit, JVD not distended Respiratory: Clear to auscultation bilaterally, Normal air movement Cardiovascular: No edema, Normal pulses, Regular rate/rhythm, Normal S1 S2 Capillary refill: <2 Seconds Gastrointestinal: Normal bowel sounds, Soft and benign, Non-distended Musculoskeletal: No clubbing, No swelling Integumentary: No rashes, No tenderness/swelling, Skin lesion (right wrist wound) Neurological: Normal speech, Normal strength at 5/5 x4 extr, Normal tone, Sensation intact Lymphatics: No axilla or inguinal lymphadenopathy Review of Systems per HPI (per HP) Physical Examination - Vital Signs Temperature: 97.1 F Blood Pressure: 101/57 Pulse: 90 Respirations: 18 Pulse Ox (%): 97 Assessment And Plan - Plan Assessment And Plan Acute CHF exacerbation: Will continue strict I/O and daily weight. Holding lasix due to hypotension. Will f/u Echo. Consulted cardiology Cardiology consulted Fluid overload: Due to CHF exacerbation. Lasix changed to 20 every 8 Hypotension: Will continue hold BP meds. Continue midodrine. DM: Continue accuchek, SSI and ADA diet FELICIA on CKD stage IV: Cr is 2.18<- 2.42<- 2.3<- 2.62. Will avoid nephrotoxins and monitor renal function. Nephrology following Microcytic anemia is likely secondary to anemia of chronic disease Trend H&H, transfuse less than 7 History of A-fib: Continue Telemetry and BB Resume home amiodarone, Coreg Started on Eliquis 2.5 p.o. twice daily Right wrist wound: Culture is growing gram negative rods. Will f/u sensitivity. Gram-negative rods, +4 treated with IV clindamycin Hx of Seizure: Will continue phenytoin. CAD: Continue coreg DVT ppx: SCD Code: Full code Discharge Plan: Home - Code Status/Comfort Care Code Status: Full Code Critical Care: No Time Spent Managing PTS Care (In Minutes): 35
--- NOTE | 2023-07-30 09:21 | P.DS ---
Admission Date: 07/27/23 Discharge Date: 07/30/23 Disposition: ROUTINE DISCHARGE Discharge Condition: FAIR Reason for Admission: Shortness of breath and body swelling Brief History of Present Illness: 78-year-old female with history of hypertension, DM, systolic CHF with last EF of 20 to 25%, status post recent admission for CHF exacerbation,3 weeks ago, status post admitted to [facility] last week for expected CABG but had PCI done and discharged 3 days ago. She, presented because of worsening shortness of breath since discharge from the hospital. Also admits to worsening bilateral lower extremity swelling. She states her Lasix dose was reduced from twice daily to daily at discharge. She admits to exertional dyspnea. She denies any cough or sputum. Arrival in the ED vital signs stable, noted with significant lower extremity edema and Doppler ultrasound shows no evidence of DVT. She has been admitted for CHF exacerbation. Laboratory studies showed creatinine up to 2.7, about baseline, BNP markedly elevated > 52k - Physical Exam General: Alert, In no apparent distress, Oriented x3 HEENT: Atraumatic, Normocephalic, PERRLA Neck: 2+ carotid pulse no bruit, JVD not distended Respiratory: Normal air movement, Crackles/rales Cardiovascular: Regular rate/rhythm, Normal S1 S2 Gastrointestinal: Normal bowel sounds, Soft and benign, Non-distended, No ascites Musculoskeletal: No clubbing, Swelling Integumentary: No rashes, No breakdown Neurological: Normal speech, Normal strength at 5/5 x4 extr, Sensation intact, Cranial nerves 3-12 intact Hospital Course: 78-year-old female with history of hypertension, DM, systolic CHF with last EF of 20 to 25%, status post recent admission for CHF exacerbation,3 weeks ago, status post admitted to [facility] last week for expected CABG but had PCI done and discharged 3 days ago. She, presented because of worsening shortness of breath since discharge from the hospital. Was noted to have acute on chronic heart failure, elevated BNP at 52,000, plan to diurese, cardiology consulted, acute kidney injury, nephrology consulted, shortness of breath has improved, can discharge home with O2, follow-up with cardiology after discharge, follow-up with Dr. Rivers for Assessment Acute on chronic heart failure with reduced ejection [id number] with cardiology after discharge Chronic kidney disease, with acute kidney injury, nephrology following, patient needs to follow-up with nephrology after discharge History of diabetes resume home diabetic medications, diabetic diet Hypertension, seizure disorders, resume appropriate home meds Continue home medicines as previously prescribed GOAL: Clear understanding of disease process INSTRUCTIONS: Physician Discharge Instructions: -Follow-up with PCP in 1 to 2 weeks -Please call Dr. Fritz at [phone] if any questions regarding hospital stay -Please call nursing station at [phone] if any nursing or medication questions -Return to the emergency room if symptoms worsen Diet: ADA, low sodium Activity: Fall precautions Vital Signs/Physical Exam: Temp Pulse Resp BP Pulse Ox 97.1 F 90 18 101/57 L 97 07/30/23 09:17 07/30/23 09:17 07/30/23 09:17 07/30/23 09:17 07/30/23 09:17 Laboratory Data at Discharge: WBC 4.70 thou/uL (4.3-10.9) 07/29/23 06:00 Hgb 9.7 g/dL (12.0-15.0) L 07/29/23 06:00 Hct 29.9 % (36.0-45.0) L 07/29/23 06:00 Plt Count 249 thou/uL (152-406) 07/29/23 06:00 Sodium 137 mEq/L (136-145) 07/30/23 05:49 Potassium 4.9 mEq/L (3.5-5.1) 07/30/23 05:49 BUN 66 mg/dL (7-18) H 07/30/23 05:49 Creatinine 2.27 mg/dL (0.55-1.02) H 07/30/23 05:49 Glucose 126 mg/dL (74-106) H 07/30/23 05:49 Phosphorus 3.6 mg/dL (2.5-4.9) 07/30/23 05:49 Magnesium 2.2 mg/dL (1.6-2.4) 07/25/23 20:47 Total Bilirubin 0.4 mg/dL (0.2-1.0) 07/26/23 03:34 AST 16 U/L (15-37) 07/26/23 03:34 ALT 25 U/L (13-56) 07/26/23 03:34 Alkaline Phosphatase 112 U/L (45-117) 07/26/23 03:34 Home Medications: Atorvastatin Calcium [Lipitor] 40 mg PO BEDTIME 08/07/21 Insulin NPH Human Isophane [Novolin N] 15 unit SQ DAILY 08/07/21 Insulin NPH Human Isophane [Novolin N] 15 unit SQ BEDTIME 06/30/23 PHENYTOIN ER Cap [Dilantin ER Cap*] 300 mg PO DAILY 06/30/23 Amiodarone HCl [Cordarone Tab] 200 mg PO BID 07/26/23 Apixaban [Eliquis *] 2.5 mg PO BID 07/26/23 Aspirin [Aspirin EC] 81 mg PO DAILY 07/26/23 Clopidogrel Bisulfate [Plavix] 75 mg PO DAILY 07/26/23 Furosemide [Lasix*] 40 mg PO DAILY 07/26/23 Metoprolol Succinate [Toprol Xl*] 25 mg PO DAILY 07/26/23 carvediloL [Carvedilol] 6.25 mg PO BID 07/26/23 predniSONE [Prednisone] 50 mg PO DAILY 07/26/23 Followup: KERVIN COLON [Primary Care Provider] - Time spent managing pt's care (in minutes): 55
--- NOTE | 2023-07-30 11:00 | P.PN ---
Subjective Date of Service: 07/30/23 Chief Complaint: Shortness of breath and body swelling Subjective: No new changes, No C/O voiced, Tolerating diet, Ambulating, Improving Review of Systems 10-point ROS is otherwise unremarkable Physical Examination - Vital Signs Temperature: 97.1 F Blood Pressure: 101/57 Pulse: 90 Respirations: 18 Pulse Ox (%): 97 - Physical Exam General: Alert, In no apparent distress HEENT: Atraumatic, PERRLA, EOMI Neck: Supple, JVD not distended Respiratory: Clear to auscultation bilaterally, Normal air movement Cardiovascular: Regular rate/rhythm, Normal S1 S2 Gastrointestinal: Normal bowel sounds, No tenderness Musculoskeletal: No tenderness Integumentary: No rashes Neurological: Normal speech, Normal tone, Normal affect Lymphatics: No axilla or inguinal lymphadenopathy - Studies Medications List Reviewed: Yes Assessment And Plan - Current Problems (Diagnosis) (1) Acute on chronic systolic heart failure Current Visit: No Status: Acute Plan: discharge on Lasix 40 mg po BID. Continue Coreg 3.125 mg po BID Continue Midodrine for BP support. (2) Atrial fibrillation with RVR Current Visit: No Status: Acute Plan: Patient is currently in sinus rhythm. Continue Amiodarone 200 mg daily Continue Coreg 3.125 mg po BID Continue Eliquis 2.5 mg po BID (3) Coronary artery disease Current Visit: No Status: Chronic Plan: s/p recent complex PCI on LM/LAD and LCX Continue Plavix 75 mg daily Continue ASA 81 mg daily Continue Lipitor 40 mg daily. Qualifiers: Coronary Disease-Associated Artery/Lesion type: [place] artery [place] vs. transplanted heart: [place] heart Associated angina: without angina Qualified Code(s): I25.10 - Atherosclerotic heart disease of [place] coronary artery without angina pectoris
[2023-07-30 13:01] VITALS: BP 117/56; TEMP 98.3; O2SAT 100
--- NOTE | 2023-07-30 18:49 | PN ---
Date of Progress Note: 07/30/2023 Chief Complaint: Acute on chronic kidney injury, cardiorenal syndrome, hypotensive episode. The pat ient has multiple medical problems including history of chronic kidney disease stage IIIB advancing t o stage IV. The patient is seen in bed. She denies chest pain, palpitation. She is advancing with physical therapy. Review of Systems: Denies cough, nausea, vomiting. Denies PND, orthopnea. Physical Examination: Lungs: Clear to auscultation bilaterally. Heart: S1, S2. Abdomen: Soft, obese. Extremities: Minimal edema. Impression And Plan: 1.Acute on advanced chronic kidney disease secondary to cardiorenal syndrome, hypertensive kidney di sease, and diabetes mellitus with renal manifestation. The patient has peripheral edema. She has co ngestive heart failure. Continue to adjust diuretic dose to prevent acute kidney injury. 2.Hypertension. Monitor blood pressure closely. 3.Coronary artery disease with congestive heart failure. Continue diuretic. 4.Hyponatremia, dilutional, secondary to cardiorenal syndrome. Continue p.o. fluid restriction, low -sodium diet. MANOJ/CAMERON Voice ID: [id number] Report ID: [id number]
== END 2023-07-30 14:30 | disposition home or self-care (01) | DRG 291 ==
LOC: ER 18:36 → ERHOLD 22:34 → 4TH 07-26 17:35 → OBSVTOIN 07-27 11:52
PROVIDERS: ADMIT Internal Medicine; ATTEND Hospitalist
DX: I13.0 Hypertensive heart and chronic kidney disease with heart failure and stage 1 through stage 4 chronic kidney disease, or unspecified chronic kidney disease (principal); I50.23 Acute on chronic systolic (congestive) heart failure; N18.4 Chronic kidney disease, stage 4 (severe); N17.9 Acute kidney failure, unspecified; E87.1 Hypo-osmolality and hyponatremia; E11.22 Type 2 diabetes mellitus with diabetic chronic kidney disease; E11.40 Type 2 diabetes mellitus with diabetic neuropathy, unspecified; I48.91 Unspecified atrial fibrillation; I25.2 Old myocardial infarction; I25.10 Atherosclerotic heart disease of native coronary artery without angina pectoris; Z88.1 Allergy status to other antibiotic agents; Z88.8 Allergy status to other drugs, medicaments and biological substances; Z79.4 Long term (current) use of insulin; Z79.82 Long term (current) use of aspirin; Z79.52 Long term (current) use of systemic steroids; Z79.01 Long term (current) use of anticoagulants; Z90.49 Acquired absence of other specified parts of digestive tract; Z79.02 Long term (current) use of antithrombotics/antiplatelets; Z79.899 Other long term (current) drug therapy; Z95.810 Presence of automatic (implantable) cardiac defibrillator
CPT/HCPCS: 36415; 71045; 80048; 80053; 80069; 82947; 83735; 83880; 84484; 85025; 87070; 87077; 87186; 87205; 93005; 93970; 96374; 97110; 97116; 97161; 97530; 99285; G0378; J0360; J1650; J1815; J1940; J2405; J7050

== ENCOUNTER 2023-12-25 02:20 | Inpatient (IN) | payer OTHER ==
--- NOTE | 2023-12-25 05:35 | RAD REPORT ---
CLINICAL HISTORY: Chest pain. COMPARISON: XR Chest 10/20/2023. TECHNIQUE: XR CHEST 1 VIEW 12/25/2023 12:00 AM DIRECTOR LIFE FINDINGS: The heart is enlarged. Left biventricular AICD is unchanged. Lungs are clear without consolidation, a telectasis, mass or edema. There is no pleural effusion. There is no pneumothorax. There are no acute osseous findings. IMPRESSION: No change. Electronically signed by: Mike White MD 12/25/2023 05:21 AM DIRECTOR LIFE RP Due to temporary technical issues with the PACS/Front Flip reporting system, reports are being eddie d by the in-house radiologist without review as a courtesy to ensure prompt reporting the interpreting radiologist is fully responsible for the content of the report. Transcribed Date/Time: 12/25/2023 5:34 AM
[2023-12-25] MEDS ORDERED: FUROSEMIDE 40 MG/4 ML VIAL ONE (06:05)
[2023-12-25] MEDS ORDERED: ONDANSETRON 4 MG/2 ML VIAL ONE (06:05)
[2023-12-25] MEDS ORDERED: MORPHINE 4 MG/ML SYR ONE (06:05)
[2023-12-25 06:20] LABS: Absolute Eosinophils 0.1 K/uL (0-0.5); Absolute Lymphocytes (CBC) 1.2 K/uL (0.7-4.9); Absolute Monocytes 0.3 K/uL (0.1-1.3); Absolute Neutrophil 2.6 K/uL (1.8-8.0); Basophils % 0.5 % (0-1.3); Hematocrit 31.8 % (36.0-45.0); Hemoglobin 10.9 g/dL (12.0-15.0); Lymphocytes % 27.6 % (15.3-44.8); MCH 35.2 pg (27.0-35.0); MCHC 34.4 g/dL (32.0-36.0); MCV 102.4 fL (80-100); MPV 10.4 fL (7.6-11.3); Neutrophils % 60.9 % (41.7-73.7); Nucleated Red Blood Cells % 0.2 % (0-0); Platelets 188 thou/uL (152-406); RBC Red Blood Cell Count 3.11 M/uL (3.86-4.86); Red Cell Distribution Width 15.7 % (12.1-15.2)
[2023-12-25 06:27] LABS: D-Dimer 1.01 FEUug/mL (0-0.500); PT Prothrombin Time 13.2 SECONDS (9.4-12.5); Protime INR 1.18
[2023-12-25 06:51] LABS: Albumin 3.5 g/dL (3.4-5.0); Albumin/Globulin Ratio 0.9 (1.1-1.8); Anion Gap 10.7 mEq/L (5.0-15.0); Bilirubin Direct 0.2 mg/dL (0-0.2); Bilirubin Indirect, Calculated 0.1 mg/dL (0.2-0.8); Bilirubin Total 0.3 mg/dL (0.2-1.0); Globulin 3.7 g/dL (2.3-3.5); Magnesium 2.5 mg/dL (1.6-2.4); Potassium 3.7 mEq/L (3.5-5.1); Protein, Total 7.2 g/dL (6.4-8.2); Troponin High Sensitivity 40.2 pg/mL (<58.9)
--- NOTE | 2023-12-25 07:21 | ER ---
Nurse's Notes [facility] Name: Teena Simpson Age: 78 yrs Sex: Female : 1945 Arrival Date: 12/25/2023 Time: 02:20 Bed 2 Private MD: Diagnosis: Acute on chronic combined systolic (congestive) and diastolic (congestive) heart failure Presentation: 12/24 02:56 Chief complaint: Patient states: having trouble breathing. Coronavirus screen: Client vc1 denies travel out of the [place] in the last 14 days. At this time, the client does not indicate any symptoms associated with coronavirus-19. Ebola Screen: Patient negative for fever greater than or equal to 101.5 degrees Fahrenheit, and additional compatible Ebola Virus Disease symptoms Patient denies exposure to infectious person. Patient denies travel to an Ebola-affected area in the 21 days before illness onset. No symptoms or risks identified at this time. Initial Sepsis Screen: Does the patient meet any 2 criteria? No. Patient's initial sepsis screen is negative. Does the patient have a suspected source of infection? No. Patient's initial sepsis screen is negative. Risk Assessment: Do you want to hurt yourself or someone else? Patient reports no desire to harm self or others. Onset of symptoms was December 25, 2023. Care prior to arrival: None. Activity prior to arrival: None. Mechanism of Injury: No Mechanism of Injury. Transition of care: patient was not received from another setting of care. 02:56 Method Of Arrival: Wheelchair vc1 02:56 Acuity: TYSON 4 vc1 02:59 Note Placed allergy band on right wrist. vc1 Triage Assessment: 03:00 General: Appears in no apparent distress. comfortable, Behavior is calm, cooperative, vc1 appropriate for age. Pain: Denies pain. EENT: No deficits noted. No signs and/or symptoms were reported regarding the EENT system. Neuro: Level of Consciousness is awake, alert, obeys commands, Oriented to person, place, time, situation, Appropriate for age. Cardiovascular: Capillary refill < 3 seconds Patient's skin is warm and dry. Respiratory: Reports shortness of breath at rest Onset: The symptoms/episode began/occurred today, the patient has mild shortness of breath. GI: Abdomen is flat, non-distended, Abd is soft and non tender. : No deficits noted. No signs and/or symptoms were reported regarding the genitourinary system. Derm: Skin is intact, is healthy with good turgor, Skin is dry, Skin is normal, Skin temperature is warm. Musculoskeletal: Circulation, motion, and sensation intact. Range of motion: intact in all extremities. Historical: - Allergies: 02:58 Augmentin; vc1 02:58 Cipro; vc1 02:58 Keppra; vc1 - PMHx: 02:58 Anxiety; Atrial Fib; CHF; Diabetes - IDDM; High Cholesterol; Hypertension; Low HR; vc1 Kidney failure stage 4; Seizures; Myocardial infarction; neuropathy; - PSHx: 02:58 Appendectomy; Pacemaker-Defib; carpal tunnel; Hemorrhoidectomy; vc1 - Immunization history:: Client reports receiving the 2nd dose of the Covid vaccine, Flu vaccine is up to date. - Infectious Disease History:: Denies. - Social history:: Smoking status: Patient denies any tobacco usage or history of. - Family history:: not pertinent. Screenin:59 [facility] ED Fall Risk Assessment (Adult) History of falling in the last 3 months, vc1 including since admission No falls in past 3 months (0 pts) Confusion or Disorientation No (0 pts) Intoxicated or Sedated No (0 pts) Impaired Gait No (0 pts) Mobility Assist Device Used No (0 pt) Altered Elimination No (0 pt) Score/Fall Risk Level 0 - 2 = Low Risk Oriented to surroundings, Maintained a safe environment, Educated pt \\T\\ family on fall prevention, incl call for assistance when getting out of bed. Abuse screen: Denies threats or abuse. Nutritional screening: No deficits noted. Tuberculosis screening: No symptoms or risk factors identified. Assessment: 03:25 General: Appears in no apparent distress. comfortable, Behavior is calm, cooperative. lg3 Pain: Denies pain. Neuro: No deficits noted. Geller Agitation-Sedation Scale (RASS): 0 - Alert and Calm Level of Consciousness is awake, alert, obeys commands, Oriented to person, place, time, situation. Cardiovascular: No deficits noted. Rhythm is A-V sequential pacer. Respiratory: No deficits noted. Reports shortness of breath when laying flat Airway is patent Respiratory effort is even, unlabored, Respiratory pattern is regular, symmetrical, Breath sounds are clear bilaterally. GI: No deficits noted. No signs and/or symptoms were reported involving the gastrointestinal system. : No deficits noted. No signs and/or symptoms were reported regarding the genitourinary system. EENT: No deficits noted. No signs and/or symptoms were reported regarding the EENT system. Derm: No deficits noted. No signs and/or symptoms reported regarding the dermatologic system. Skin is intact, is healthy with good turgor, Skin is dry, Skin is normal, Skin temperature is warm. Musculoskeletal: No deficits noted. No signs and/or symptoms reported regarding the musculoskeletal system. Circulation, motion, and sensation intact. Range of motion: intact in all extremities. 03:38 General: per MD, no blood cultures needed at this time . lg3 05:41 Reassessment: Patient appears in no apparent distress at this time. No changes from lg3 previously documented assessment. Patient and/or family updated on plan of care and expected duration. Pain level reassessed. Patient is alert, oriented x 3, equal unlabored respirations, skin warm/dry/pink. 06:20 Reassessment: pur wic applied to PT. bm8 06:48 Reassessment: Patient appears in no apparent distress at this time. Patient and/or bm8 family updated on plan of care and expected duration. Pain level reassessed. Patient is alert, oriented x 3, equal unlabored respirations, skin warm/dry/pink. Patient states feeling better. Patient states symptoms have improved. Pain: Complains of pain in back Pain currently is 2 out of 10 on a pain scale. Vital Signs: 02:56 BP 111 / 62; Pulse 77; Resp 14; Temp 97; Pulse Ox 100% ; Weight 68.95 kg; Height 5 ft. vc1 0 in. ; Pain 0/10; 05:41 BP 126 / 85; Pulse 89; Resp 16 S; Pulse Ox 100% on R/A; lg3 06:48 BP 99 / 59; Pulse 89; Resp 16; Temp 97; Pulse Ox 93% on R/A; Pain 2/10; bm8 08:00 BP 99 / 67; Pulse 89; Resp 18; Pulse Ox 98% on R/A; ph 09:00 BP 99 / 62; Pulse 90; Resp 18; Pulse Ox 99% on R/A; ph 09:54 BP 108 / 69; Pulse 90; Resp 20; Pulse Ox 98% on R/A; ph 11:20 BP 105 / 61; Pulse 100; Resp 18; Temp 97.5; Pulse Ox 99% on R/A; ph 02:56 Body Mass Index 29.69 (68.95 kg, 152.4 cm) vc1 02:56 Pain Scale: Adult vc1 06:48 Pain Scale: Adult bm8 Isabel Coma Score: 06:48 Eye Response: spontaneous(4). Motor Response: obeys commands(6). Verbal Response: bm8 oriented(5). Total: 15. 07:16 Eye Response: spontaneous(4). Motor Response: obeys commands(6). Verbal Response: sp4 oriented(5). Total: 15. ED Course: 02:27 Patient arrived in ED. gm2 02:29 Jacky Casper MD is Attending Physician. sp4 02:58 Triage completed. vc1 02:59 Arm band placed on right wrist. vc1 03:22 EKG done, by ED staff. vk 03:25 Corry Nash RN is Primary Nurse. lg3 03:25 Patient has correct armband on for positive identification. Placed in gown. Bed in low lg3 position. Call light in reach. Side rails up X 1. Client placed on continuous cardiac and pulse oximetry monitoring. NIBP monitoring applied. child monitor on. Door closed. Noise minimized. Warm blanket given. Pillow given. Family accompanied patient. 03:25 Patient maintains SpO2 saturation greater than 95% on room air. lg3 05:28 Inserted saline lock: 20 gauge in left upper arm, using aseptic technique. Flushed with lg3 10 mL NS. 06:48 Provided Education on: need for admission. bm8 06:48 No provider procedures requiring assistance completed. bm8 06:50 Patient admitted, IV remains in place. bm8 07:20 Sylvie Fritz MD is Hospitalizing Provider. sp4 11:10 1110 CM met with at the bedside Patient identified by name and . ane Demographic sheet confirmed. Patient states she lives with her daughter in a singles story home, and that prior to admission, she usually performs ADLs independently. Recently, she has been experiencing generalized weakness and states "I have fallen 7 times already" and that she started feeling this way after "starting new medicines" DME in the home includes a walker. No HH, no home oxygen or other medical services at this time. No MPOA in place. PCP is Dr. Saul Messer. Patient mentioned her medications are increasingly pricey. CM provided community resource packet to include information on medication assistance programs. Patient wishes to return home upon discharge and states her daughter Gabbie will transport her home. CM team will continue to follow and coordinate care. Administered Medications: 06:19 Drug: Furosemide IVP 40 mg IVP once; give over 2 minutes Route: IVP; Site: left upper bm8 arm; 07:05 Follow up: Response: No adverse reaction ph 06:19 Drug: morphine IVP or IV 4 mg IVP once over 4 mins Route: IVP; Infused Over: 4 mins; bm8 Site: left upper arm; 07:05 Follow up: Response: No adverse reaction ph 06:19 Drug: Ondansetron IVP 4 mg IVP once; over 2 minutes Route: IVP; Site: left upper arm; bm8 07:05 Follow up: Response: No adverse reaction ph 08:44 Drug: Albumin IVPB 25 grams 100 ml IVPB once; (Note: Albumin 25% concentration) Volume: ph 100 ml; Route: IVPB; Site: left antecubital; 10:00 Follow up: Response: No adverse reaction; IV Status: Completed infusion ph Medication: 03:00 VIS not applicable for this client. vc1 Outcome: 07:21 Decision to Hospitalize by Provider. sp4 12:30 Admitted to Tele accompanied by tech, via wheelchair, with chart, ph 12:30 Condition: stable 12:30 Instructed on the need for admit, 12:45 Patient left the ED. ko1 Signatures: Mara Urbina RN RN ph AbleCorry RN RN lg3 Lizbet Max RN RN vc1 Ana Montesinos RN RN ko1 Jacky Casper MD MD sp4 Bessy Salinas gmCielo Roque Brad RN RN bm8 Kaylee Lyane RN RN ane Corrections: (The following items were deleted from the chart) 16:20 11:20 BP 105 / 61; Pulse 100bpm; ph ph
--- NOTE | 2023-12-25 07:21 | EDPHYS ---
Physician Documentation [facility] Name: Teena Simpson Age: 78 yrs Sex: Female : 1945 Arrival Date: 12/25/2023 Time: 02:20 Bed 2 Private MD: ED Physician Jacky Casper HPI: 12/24 02:29 This 78 yrs old Female presents to ER via Unassigned with complaints of sp4 Breathing Difficulty. 07:14 78 year old female with PMH of CHF presents with worsening dyspnea on exertion, sp4 Orthopnea and PND. . Historical: - Allergies: 02:58 Augmentin; vc1 02:58 Cipro; vc1 02:58 Keppra; vc1 - PMHx: 02:58 Anxiety; Atrial Fib; CHF; Diabetes - IDDM; High Cholesterol; Hypertension; Low HR; vc1 Kidney failure stage 4; Seizures; Myocardial infarction; neuropathy; - PSHx: 02:58 Appendectomy; Pacemaker-Defib; carpal tunnel; Hemorrhoidectomy; vc1 - Immunization history:: Client reports receiving the 2nd dose of the Covid vaccine, Flu vaccine is up to date. - Infectious Disease History:: Denies. - Social history:: Smoking status: Patient denies any tobacco usage or history of. - Family history:: not pertinent. ROS: 07:16 Constitutional: Negative for fever, chills, and weight loss, positive PND, Orthopnea, sp4 and positive KELLEY Eyes: Negative for injury, pain, redness, and discharge, 07:16 All other systems are negative, Exam: 07:16 Constitutional: This is a well developed, well nourished patient who is awake, alert, sp4 and in no acute distress. Head/Face: Normocephalic, atraumatic. Eyes: Pupils equal round and reactive to light, extra-ocular motions intact. Lids and lashes normal. Conjunctiva and sclera are not injected. Cornea within normal limits. Periorbital areas with no swelling, redness, or edema. ENT: Nares patent. No nasal discharge, no septal abnormalities noted. Tympanic membranes are normal and external auditory canals are clear. Oropharynx with no redness, swelling, or masses, exudates, or evidence of obstruction, uvula midline. Mucous membranes moist. Neck: Trachea midline, no thyromegaly or masses palpated, and no cervical lymphadenopathy. Supple, full range of motion without nuchal rigidity, or vertebral point tenderness. Chest/axilla: Normal chest wall appearance and motion. Nontender with no deformity. No lesions are appreciated. Cardiovascular: Regular rate and rhythm with a normal S1 and S2. No gallops, murmurs, or rubs. Normal PMI, no JVD. No pulse deficits. Respiratory: Lungs have equal breath sounds bilaterally, clear to auscultation and percussion. No rales, rhonchi or wheezes noted. No increased work of breathing, no retractions or nasal flaring. Abdomen/GI: Soft, with normal bowel sounds. No distension or tympany. No guarding or rebound. No evidence of tenderness throughout. Back: No spinal tenderness. No costovertebral tenderness. Skin: Warm, dry with normal turgor. Normal color with no rashes, no lesions, and no evidence of cellulitis. MS/ Extremity: Pulses equal, no cyanosis. Neurovascular intact. Full, normal range of motion. Neuro: Awake and alert, GCS 15, oriented to person, place, time, and situation. Cranial nerves II-XII grossly intact. Motor strength 5/5 in all extremities. Sensory grossly intact. Psych: Awake, alert, with orientation to person, place and time. Behavior, mood, and affect are within normal limits 07:19 ECG was reviewed by the Attending Physician. AV dual paced rhythm sp4 Vital Signs: 02:56 BP 111 / 62; Pulse 77; Resp 14; Temp 97; Pulse Ox 100% ; Weight 68.95 kg; Height 5 ft. vc1 0 in. ; Pain 0/10; 05:41 BP 126 / 85; Pulse 89; Resp 16 S; Pulse Ox 100% on R/A; lg3 06:48 BP 99 / 59; Pulse 89; Resp 16; Temp 97; Pulse Ox 93% on R/A; Pain 2/10; bm8 08:00 BP 99 / 67; Pulse 89; Resp 18; Pulse Ox 98% on R/A; ph 09:00 BP 99 / 62; Pulse 90; Resp 18; Pulse Ox 99% on R/A; ph 09:54 BP 108 / 69; Pulse 90; Resp 20; Pulse Ox 98% on R/A; ph 11:20 BP 105 / 61; Pulse 100; Resp 18; Temp 97.5; Pulse Ox 99% on R/A; ph 02:56 Body Mass Index 29.69 (68.95 kg, 152.4 cm) vc1 02:56 Pain Scale: Adult vc1 06:48 Pain Scale: Adult bm8 Isabel Coma Score: 06:48 Eye Response: spontaneous(4). Motor Response: obeys commands(6). Verbal Response: bm8 oriented(5). Total: 15. 07:16 Eye Response: spontaneous(4). Motor Response: obeys commands(6). Verbal Response: sp4 oriented(5). Total: 15. MDM: 02:31 Medical Screening Exam initiated sp4 05:48 ED course: CLINICAL HISTORY: Chest pain. COMPARISON: XR Chest 10/20/2023. TECHNIQUE: XR sp4 CHEST 1 VIEW 12/25/2023 12:00 AM MANAGER PLACEMENT FINDINGS: The heart is enlarged. Left biventricular AICD is unchanged. Lungs are clear without consolidation, atelectasis, mass or edema. There is no pleural effusion. There is no pneumothorax. There are no acute osseous findings. IMPRESSION: No change. . 07:21 Differential diagnosis: Anemia Anxiety Reaction Myocardial Infarction pneumonia, sp4 Psychogenic. Data reviewed: vital signs, nurses notes, lab test result(s), EKG, radiologic studies, plain films. 12/24 02:33 Order name: ABG sp4 12/24 06:22 Order name: CBC with Automated Diff; Complete Time: 06:40 EDMS 12/24 06:27 Order name: Protime (+INR); Complete Time: 06:40 EDMS 12/24 06:27 Order name: PTT, Activated Partial Thromb; Complete Time: 06:40 EDMS 12/24 06:27 Order name: D-Dimer; Complete Time: 06:40 EDMS 12/24 06:51 Order name: Basic Metabolic Panel; Complete Time: 07:11 EDMS 12/24 06:51 Order name: Liver (Hepatic) Function; Complete Time: 07:11 EDMS 12/24 06:51 Order name: Creatine Phosphokinase; Complete Time: 07:11 EDMS 12/24 06:51 Order name: Troponin High Sensitivity; Complete Time: 07:11 EDMS 12/24 06:51 Order name: NT PRO-BNP; Complete Time: 07:11 EDMS 12/24 06:51 Order name: Magnesium; Complete Time: 07:11 EDMS 12/24 06:51 Order name: Lipase; Complete Time: 07:11 EDMS 12/24 08:45 Order name: Basic Metabolic Panel EDMS 12/24 08:45 Order name: Liver (Hepatic) Function EDMS 12/24 08:45 Order name: Creatine Phosphokinase EDMS 12/24 08:45 Order name: Troponin High Sensitivity EDMS 12/24 08:45 Order name: NT PRO-BNP EDMS 12/24 08:45 Order name: Magnesium EDMS 12/24 08:45 Order name: Lipase EDMS 12/24 08:45 Order name: CBC with Automated Diff EDMS 12/24 08:45 Order name: Protime (+INR) EDMS 12/24 08:45 Order name: PTT, Activated Partial Thromb EDMS 12/24 08:45 Order name: D-Dimer EDMS 12/24 10:07 Order name: CBC with Automated Diff EDMS 12/24 10:07 Order name: CBC with Automated Diff EDMS 12/24 10:07 Order name: Comprehensive Metabolic Panel EDMS 12/24 10:07 Order name: Comprehensive Metabolic Panel EDMS 12/24 10:07 Order name: Magnesium EDMS 12/24 10:07 Order name: Magnesium EDMS 12/24 10:07 Order name: NT PRO-BNP EDMS 12/24 10:07 Order name: NT PRO-BNP EDMS 12/24 10:07 Order name: Phosphorus EDMS 12/24 10:07 Order name: Phosphorus EDMS 12/24 10:07 Order name: Troponin High Sensitivity EDMS 12/24 10:07 Order name: Troponin High Sensitivity EDMS 12/24 10:07 Order name: Troponin High Sensitivity EDMS 12/24 10:07 Order name: Urinalysis W/Microscopic EDMS 12/24 12:10 Order name: Blood Culture EDMS 12/24 02:33 Order name: XRAY CXR (1 view) sp4 12/24 05:35 Order name: RAD; Complete Time: 06:00 EDMS 12/24 08:40 Order name: Chest Single View EDMS 12/24 10:07 Order name: Echo with Doppler EDMS 12/24 10:07 Order name: Echo with Doppler EDMS 12/24 02:33 Order name: EKG; Complete Time: 10:49 sp4 12/24 10:07 Order name: CONS Physician Consult EDMS 12/24 02:33 Order name: Cardiac monitoring; Complete Time: 03: sp4 12/24 02:33 Order name: EKG - Nurse/Tech; Complete Time: 03:22 sp4 12/24 02:33 Order name: IV Saline Lock; Complete Time: 05:29 sp4 12/24 02:33 Order name: Labs collected and sent; Complete Time: 05: sp4 12/24 02:33 Order name: O2 Per Protocol; Complete Time: 03: sp4 12/24 02:33 Order name: O2 Sat Monitoring; Complete Time: 03: sp4 EC:19 Rate is 89 beats/min. Rhythm is regular, Paced. Clinical impression: No evidence of sp4 ischemia. Interpreted by me. Reviewed by me. Administered Medications: 06:19 Drug: Furosemide IVP 40 mg IVP once; give over 2 minutes Route: IVP; Site: left upper [facility] arm; 07:05 Follow up: Response: No adverse reaction ph 06:19 Drug: morphine IVP or IV 4 mg IVP once over 4 mins Route: IVP; Infused Over: 4 mins; [facility] Site: left upper arm; 07:05 Follow up: Response: No adverse reaction ph 06:19 Drug: Ondansetron IVP 4 mg IVP once; over 2 minutes Route: IVP; Site: left upper arm; [facility] 07:05 Follow up: Response: No adverse reaction ph 08:44 Drug: Albumin IVPB 25 grams 100 ml IVPB once; (Note: Albumin 25% concentration) Volume: ph 100 ml; Route: IVPB; Site: left antecubital; 10:00 Follow up: Response: No adverse reaction; IV Status: Completed infusion ph Disposition Summary: 12/25/23 07:21 Hospitalization Ordered Notes: Hospitalization Status: Inpatient Admission sp4 Provider: Sylvie Fritz Location: Telemetry/[facility] (Inpatient) sp4 Condition: Fair sp4 Problem: new sp4 Symptoms: have improved sp4 Bed/Room Type: Standard sp4 Room Assignment: 214(12/25/23 10:33) bd Diagnosis - 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 sp4 lg3 10:33 07:21 sp4 bd 10:56 10:56 BASIC METABOLIC PANEL+C.LAB.BRZ ordered. EDMS EDMS 10:56 10:56 BLOOD CULTURE*+BA.LAB.BRZ ordered. EDMS EDMS 10:56 10:56 CBC+H.LAB.BRZ ordered. EDMS EDMS 10:56 10:56 CREATINE PHOSPHOKINASE+C.LAB.BRZ ordered. EDMS EDMS 10:56 10:56 D-DIMER+COAG.LAB.BRZ ordered. EDMS EDMS 10:56 10:56 HEPATIC FUNCTION+C.LAB.BRZ ordered. EDMS EDMS 10:56 10:56 LIPASE+C.LAB.BRZ ordered. EDMS EDMS 10:56 10:56 MAGNESIUM+C.LAB.BRZ ordered. EDMS EDMS 10:56 10:56 PROBNP+C.LAB.BRZ ordered. EDMS EDMS 10:56 10:56 PROTIME (+INR)+COAG.LAB.BRZ ordered. EDMS EDMS 10:56 10:56 PTT, ACTIVATED+COAG.LAB.BRZ ordered. EDMS EDMS 10:56 10:56 Troponin High Sensitivity+C.LAB.BRZ ordered. EDMS EDMS
[2023-12-25] MEDS ORDERED: ALBUMIN HUMAN 25% 100 ML IV ONE (08:28)
--- NOTE | 2023-12-25 09:59 | P.HP ---
Certification for Inpatient Patient admitted to: Observation With expected LOS: <2 Midnights Patient will require the following post-hospital care: None Practitioner: I am a practitioner with admitting privileges, knowledge of patient current condition, hospital course, and medical plan of care. Services: Services provided to patient in accordance with Admission requirements found in Title 42 Section 412.3 of the Code of Federal Regulations Patient History Date of Service: 12/25/23 Reason for admission: Shortness of breath History of Present Illness: Patient is a 78-year-old female came to the hospital with shortness of breath. She states her shortness of breath has been going on for the last 3 days. She has multiple cardiac issues but she follows up with local cardiology Dr. Moore. Is been taking a lot of ibuprofen daily because of her low back pain. Some days she takes 2 or 3 at a time. Patient had an echocardiogram done earlier this year which showed an ejection fraction of 25 to 30%. Patient had global hypokinesis along with some moderate diastolic dysfunction. Patient's chest x- ray shows minimal pulmonary edema. Patient is not hypoxic at this time. She does have some bilateral lower extremity edema. Patient will be admitted to the hospital for further workup. Initial troponin was negative. BNP greater than 20,000. Patient will be admitted with cardiology consultation. Allergies amoxicillin [From Augmentin] Adverse Reaction (Verified 11/09/22 14:41) Nausea/Vomiting ciprofloxacin Adverse Reaction (Verified 11/09/22 14:41) Nausea/Vomiting clavulanic acid [From Augmentin] Adverse Reaction (Verified 11/09/22 14:41) Nausea/Vomiting levetiracetam [From Keppra] Adverse Reaction (Verified 11/09/22 14:41) fast heart rate oxcarbazepine Adverse Reaction (Verified 11/09/22 14:41) fast heart beat Home Medications: Atorvastatin Calcium [Lipitor] 40 mg PO BEDTIME 08/07/21 Insulin NPH Human Isophane [Novolin N] 15 unit SQ DAILY 08/07/21 Insulin NPH Human Isophane [Novolin N] 15 unit SQ BEDTIME 06/30/23 Apixaban [Eliquis *] 2.5 mg PO BID 07/26/23 Aspirin [Aspirin EC] 81 mg PO DAILY 07/26/23 Clopidogrel Bisulfate [Plavix] 75 mg PO DAILY 07/26/23 predniSONE [Prednisone] 50 mg PO DAILY 07/26/23 Amiodarone HCl [Cordarone*] 200 mg PO DAILY tab 07/30/23 Furosemide [Lasix] 40 mg PO BID 30 Days #60 tab 07/30/23 Midodrine HCl 10 mg PO TID PRN 30 Days #90 tab 07/30/23 Midodrine HCl [Proamatine*] 5 mg PO TID tab 07/30/23 PHENYTOIN ER Cap [Dilantin ER Cap*] 300 mg PO DAILY cap 07/30/23 Potassium Chloride [K-Dur] 20 meq PO 30 MIN BEFORE HS 30 Days #30 tab 07/30/23 carvediloL [Coreg*] 3.125 mg PO BID 6AM 6PM 30 Days #60 tab 07/30/23 - Past Medical/Surgical History Diabetic: Yes -: Seizures -: Atrial fibrillation on chronic anticoagulation -: Diabetes mellitus type 2insulin-dependent -: Hypertension -: Hyperlipidemia -: Chronic systolic congestive heart failure -: CAD -: CKD 4 -: neuropathy -: Systolic CHF- EF 20-25% -: defibrilator -: PNA -: defib/pacemaker placement x2 -: exploratory lap -: appendectomy -: Hemorrhoidectomy -: cyst removal of arms and feet Psychosocial/ Personal History: Patient lives at home with family - Family History Father Medical History: Hypertension, Lung disease Mother Medical History: Heart disease, Hypertension, Diabetes Sister Medical History: Diabetes Brother Medical History: Diabetes, Kidney disease - Social History Smoking Status: Former smoker Alcohol use: No CD- Drugs: No Caffeine use: Yes Review of Systems 10-point ROS is otherwise unremarkable Physical Examination - Vital Signs Temperature: 98 F Blood Pressure: 140/80 Pulse: 80 Respirations: 18 Pulse Ox (%): 95 - Physical Exam General: Alert, In no apparent distress, Oriented x3 HEENT: Atraumatic, PERRLA, Mucous membr. moist/pink, EOMI, Sclerae nonicteric Neck: Supple, 2+ carotid pulse no bruit, No LAD, Without JVD or thyroid abnormality Respiratory: Clear to auscultation bilaterally, Normal air movement Cardiovascular: Regular rate/rhythm, Normal S1 S2 Gastrointestinal: Normal bowel sounds, Soft and benign, Non-distended, No tenderness Musculoskeletal: No clubbing, No swelling, No tenderness Integumentary: No rashes Neurological: Normal gait, Normal speech, Normal strength at 5/5 x4 extr, Normal tone, Sensation intact, Cranial nerves 3-12 intact, Normal affect Lymphatics: No axilla or inguinal lymphadenopathy - Studies Laboratory Data (last 24 hrs) 12/25/23 12/25/23 12/25/23 05:59 05:59 05:59 WBC 4.20 L Hgb 10.9 L Hct 31.8 L Plt Count 188 PT 13.2 H INR 1.18 APTT 32.0 Sodium 137 Potassium 3.7 BUN 95 H Creatinine 2.08 H Glucose 200 H Magnesium 2.5 H Total Bilirubin 0.3 AST 25 ALT 29 Alkaline Phosphatase 120 H Lipase 37 Assessment & Plan - Problems (Diagnosis) (1) Combined systolic and diastolic congestive heart failure Current Visit: Yes Status: Acute (2) Atrial fibrillation Current Visit: No Status: Chronic Qualifiers: (3) CHF (congestive heart failure) Current Visit: No Status: Chronic Qualifiers: (4) CKD (chronic kidney disease) Current Visit: No Status: Chronic Qualifiers: (5) Coronary artery disease Current Visit: No Status: Chronic Qualifiers: (6) Diabetes Current Visit: No Status: Chronic Qualifiers: (7) Hypertension Current Visit: No Status: Chronic Qualifiers: (8) Morbid (severe) obesity due to excess calories Current Visit: No Status: Chronic - Plan 1. Patient with combined systolic and diastolic heart failure; patient with a history of systolic dysfunction with an ejection fraction of 25 to 30%. Patient also had diastolic dysfunction on her last echocardiogram a few months ago. Continue with gentle diuresing at this time. Patient was significant uremia and elevated creatinine so we need to cautiously diurese at this time. Will get cardiology consultation and get a repeat echocardiogram. Patient will also get nephrology consultation as patient with CKD and with significantly elevated uremia. 2. Patient with CKD with prerenal azotemia; patient with significant uremia but no evidence of GI bleeding. Patient with cautious diuresing. Will monitor strict I's and O's. Will get nephrology input as well. 3. History of atrial fibrillation; continue with medication for rate control and anticoagulation 4. History of hypertension; monitor hemodynamics closely and resume antihypertensives 5. Discharge Plan: Home Plan to discharge in: Greater than 2 days - Advance Directives Does patient have a Living Will: Yes Does patient have a Durable POA for Healthcare: Yes - Code Status/Comfort Care Code Status Assessed: Yes Code Status: Full Code Critical Care: No Time Spent Managing PTS Care (In Minutes): 45
[2023-12-25] MEDS ORDERED: ACETAMINOPHEN 500 MG TAB PO PRN (10:02)
[2023-12-25] MEDS ORDERED: ONDANSETRON 4 MG/2 ML VIAL IV PRN (10:02)
--- NOTE | 2023-12-25 12:16 | EKG ---
Test Date: 2023-12-25 Test Time: 03:08:54 Business Segment Manager: NEHEMIAH MEASUREMENT RESULTS: Intervals: Rate: 89 PA: 140 QRSD: 174 QT: 484 QTc: 588 [place]: P: 109 PA: 140 QRS: -89 T: 105 INTERPRETIVE STATEMENTS: AV dual-paced rhythm Abnormal ECG Compared to ECG 07/25/2023 20:31:21 No significant changes Electronically Signed On 12-25-23 12:15:28 STILL TENDER by Arden Garza
--- NOTE | 2023-12-25 13:17 | P.CNS ---
Date of Consult: 12/25/23 Chief Complaint: Shortness of breath History of Present Illness: Patient with PMH of CAD, s/p recent PCI LM/LAD and LCX, Atrial fibrillation, presented with worsening SOB, she has been missing some medications, denies any other cardiac symptoms. Allergies amoxicillin [From Augmentin] Adverse Reaction (Verified 11/09/22 14:41) Nausea/Vomiting ciprofloxacin Adverse Reaction (Verified 11/09/22 14:41) Nausea/Vomiting clavulanic acid [From Augmentin] Adverse Reaction (Verified 11/09/22 14:41) Nausea/Vomiting levetiracetam [From Keppra] Adverse Reaction (Verified 11/09/22 14:41) fast heart rate oxcarbazepine Adverse Reaction (Verified 11/09/22 14:41) fast heart beat Home medications list reviewed: Yes Home Medications: Atorvastatin Calcium [Lipitor] 40 mg PO BEDTIME 08/07/21 Insulin NPH Human Isophane [Novolin N] 15 unit SQ DAILY 08/07/21 Insulin NPH Human Isophane [Novolin N] 15 unit SQ BEDTIME 06/30/23 Apixaban [Eliquis *] 2.5 mg PO BID 07/26/23 Aspirin [Aspirin EC] 81 mg PO DAILY 07/26/23 Clopidogrel Bisulfate [Plavix] 75 mg PO DAILY 07/26/23 predniSONE [Prednisone] 50 mg PO DAILY 07/26/23 Amiodarone HCl [Cordarone*] 200 mg PO DAILY tab 07/30/23 Furosemide [Lasix] 40 mg PO BID 30 Days #60 tab 07/30/23 Midodrine HCl 10 mg PO TID PRN 30 Days #90 tab 07/30/23 Midodrine HCl [Proamatine*] 5 mg PO TID tab 07/30/23 PHENYTOIN ER Cap [Dilantin ER Cap*] 300 mg PO DAILY cap 07/30/23 Potassium Chloride [K-Dur] 20 meq PO 30 MIN BEFORE HS 30 Days #30 tab 07/30/23 carvediloL [Coreg*] 3.125 mg PO BID 6AM 6PM 30 Days #60 tab 07/30/23 - Past Medical/Surgical History Diabetic: Yes -: Seizures -: Atrial fibrillation on chronic anticoagulation -: Diabetes mellitus type 2insulin-dependent -: Hypertension -: Hyperlipidemia -: Chronic systolic congestive heart failure -: CAD -: CKD 4 -: neuropathy -: Systolic CHF- EF 20-25% -: defibrilator -: PNA -: defib/pacemaker placement x2 -: exploratory lap -: appendectomy -: Hemorrhoidectomy -: cyst removal of arms and feet Psychosocial/ Personal History: Patient lives at home with family - Family History Father Medical History: Hypertension, Lung disease Mother Medical History: Heart disease, Hypertension, Diabetes Sister Medical History: Diabetes Brother Medical History: Diabetes, Kidney disease - Social History Smoking Status: Unknown if ever smoked Alcohol use: No CD- Drugs: No Caffeine use: Yes Review of Systems 10-point ROS is otherwise unremarkable Physical Examination Temp Pulse Resp BP Pulse Ox 98 F 80 18 140/80 95 12/25/23 10:01 12/25/23 10:01 12/25/23 10:01 12/25/23 10:01 12/25/23 10:01 General: Alert, In no apparent distress HEENT: Atraumatic, PERRLA, Mucous membr. moist/pink, EOMI, Sclerae nonicteric Neck: Supple, 2+ carotid pulse no bruit, No LAD, Without JVD or thyroid abnormality Respiratory: Clear to auscultation bilaterally, Normal air movement Cardiovascular: Regular rate/rhythm, Normal S1 S2 Gastrointestinal: Normal bowel sounds, No tenderness Musculoskeletal: No tenderness Integumentary: No rashes Neurological: Normal gait, Normal speech, Normal tone, Normal affect Lymphatics: No axilla or inguinal lymphadenopathy Laboratory Data (last 24 hrs) 12/25/23 12/25/23 12/25/23 05:59 05:59 05:59 WBC 4.20 L Hgb 10.9 L Hct 31.8 L Plt Count 188 PT 13.2 H INR 1.18 APTT 32.0 Sodium 137 Potassium 3.7 BUN 95 H Creatinine 2.08 H Glucose 200 H Magnesium 2.5 H Total Bilirubin 0.3 AST 25 ALT 29 Alkaline Phosphatase 120 H Lipase 37 12/25/23 12/25/23 12/25/23 02:33 02:33 02:33 WBC Cancelled Hgb Cancelled Hct Cancelled Plt Count Cancelled PT Cancelled INR Cancelled APTT Cancelled Sodium Cancelled Potassium Cancelled BUN Cancelled Creatinine Cancelled Glucose Cancelled Magnesium Cancelled Total Bilirubin Cancelled AST Cancelled ALT Cancelled Alkaline Phosphatase Cancelled Lipase Cancelled - Problems (1) Combined systolic and diastolic congestive heart failure Current Visit: Yes Status: Acute Plan: Patient with elevated BNP, although there is no significant signs volume overload. agree with Lasix 40 mg IV BID Monitor input and output and electrolytes. (2) Atrial fibrillation with RVR Current Visit: No Status: Acute Plan: continue Amiodarone 200 mg daily continue Eliquis 2.5 mg po BID (3) Coronary artery disease Current Visit: No Status: Chronic Plan: Continue ASA 81 mg daily Continue Plavix 75 mg daily Continue Lipitor 40 mg daily Qualifiers:
[2023-12-25 14:40] VITALS: BMI 29.7
[2023-12-25] MEDS: FUROSEMIDE 40 MG/4 ML VIAL IV SCH (16:12)
[2023-12-25] MEDS ORDERED: D50W 25 GM/50 ML SYRINGE IV PRN ×3 (16:50→19:09)
[2023-12-25] MEDS ORDERED: GLUCAGON 1 MG/VIAL IM PRN ×3 (16:50→19:09)
[2023-12-25] MEDS: INSULIN NPH (HUMAN) 100 UNITS/ML SQ SCH (17:33)
[2023-12-25] MEDS ORDERED: D10W 125 ML IV PRN (17:57)
[2023-12-25 19:02] LABS: Specific Gravity 1.009 (1.005-1.030); Sqamous Epithelial <5 /HPF (None Seen); Urine Bacteria <20 /HPF (<20); Urine Bilirubin NEGATIVE (Negative); Urine Blood Negative (Negative); Urine Clarity Clear (Clear); Urine Color Light-Yellow (Yellow); Urine Culture Reflex Order NOT NEEDED; Urine Glucose NEGATIVE (Negative); Urine Ketones NEGATIVE (Negative); Urine Micro Reflex YN NO BILL MICROSCOPIC; Urine Mucus Slight /HPF (None Seen); Urine Nitrite NEGATIVE (Negative); Urine Protein NEGATIVE (Negative); Urine RBC <5 /HPF (None Seen); Urine Urobilinogen Normal (Normal); Urine WBC <5 /HPF (<5)
[2023-12-25] MEDS: AMIODARONE HCL 200 MG TAB PO ONE (19:26)
[2023-12-25] MEDS: carvediloL 3.125 MG TAB PO SCH (19:26)
[2023-12-25 19:57] LABS: Troponin High Sensitivity 36.4 pg/mL (<58.9)
[2023-12-25 20:17] LABS: Phenytoin (Dilantin) Level 23.2 mcg/mL (10.0-20.0)
[2023-12-25 20:18] LABS: Anion Gap 13.1 mEq/L (5.0-15.0)
[2023-12-25 20:28] LABS: Magnesium 2.3 mg/dL (1.6-2.4); Potassium 4.1 mEq/L (3.5-5.1)
[2023-12-25] MEDS: PHENYTOIN ER 100 MG CAP PO SCH (20:28)
[2023-12-25] MEDS: ATORVASTATIN 40 MG TAB PO SCH (20:29)
[2023-12-25] MEDS: APIXABAN 2.5 MG TABLET PO SCH (20:29)
[2023-12-25] MEDS: MIDODRINE HCL 5 MG TABLET PO PRN (20:39)
[2023-12-25] MEDS ORDERED: APIXABAN 2.5 MG TABLET PO SCH (21:00)
[2023-12-25] MEDS ORDERED: HEPARIN 5000 UNIT/ML 1 ML VIAL SQ SCH (21:00)
[2023-12-25] MEDS ORDERED: FUROSEMIDE 40 MG TABLET PO SCH (21:00)
[2023-12-25] MEDS ORDERED: INSULIN NPH (HUMAN) 100 UNITS/ML SQ SCH (21:00)
[2023-12-26] MEDS ORDERED: MIDODRINE HCL 5 MG TABLET PO PRN (04:49)
[2023-12-26 06:11] LABS: Absolute Neutrophil 2.8 K/uL (1.8-8.0); Basophils % 0.5 % (0-1.3); Hematocrit 32.8 % (36.0-45.0); Hemoglobin 10.9 g/dL (12.0-15.0); Lymphocytes % 24.2 % (15.3-44.8); MCH 34.7 pg (27.0-35.0); MCHC 33.2 g/dL (32.0-36.0); MCV 104.5 fL (80-100); MPV 10.8 fL (7.6-11.3); Monocytes % 10.4 % (3.3-12.3); Neutrophils % 60.9 % (41.7-73.7); Nucleated Red Blood Cells % 0.1 % (0-0); Platelets 171 thou/uL (152-406); RBC Red Blood Cell Count 3.14 M/uL (3.86-4.86); Red Cell Distribution Width 16.1 % (12.1-15.2)
[2023-12-26 06:12] LABS: Absolute Eosinophils 0.2 K/uL (0-0.5); Absolute Lymphocytes (CBC) 1.1 K/uL (0.7-4.9); Absolute Monocytes 0.5 K/uL (0.1-1.3)
[2023-12-26 06:37] LABS: Albumin 3.4 g/dL (3.4-5.0); Anion Gap 10.9 mEq/L (5.0-15.0); Bilirubin Total 0.4 mg/dL (0.2-1.0); Globulin 3.5 g/dL (2.3-3.5); Magnesium 2.3 mg/dL (1.6-2.4); Phosphorus 5.1 mg/dL (2.5-4.9); Potassium 3.9 mEq/L (3.5-5.1); Protein, Total 6.9 g/dL (6.4-8.2)
[2023-12-26] MEDS: ASPIRIN EC 81 MG TAB PO SCH (08:34)
[2023-12-26] MEDS: CLOPIDOGREL 75 MG TABLET PO SCH (08:34)
[2023-12-26] MEDS: AMIODARONE HCL 200 MG TAB PO SCH (08:34)
[2023-12-26] MEDS: INSULIN NPH (HUMAN) 100 UNITS/ML SQ SCH (08:35)
[2023-12-26] MEDS ORDERED: CLOPIDOGREL 75 MG TABLET PO SCH (09:00)
[2023-12-26] MEDS ORDERED: ASPIRIN EC 81 MG TAB PO SCH (09:00)
--- NOTE | 2023-12-26 10:42 | P.PN ---
Subjective Date of Service: 12/26/23 Chief Complaint: Shortness of breath Subjective: Improving (no complaints) Review of Systems 10-point ROS is otherwise unremarkable General: Unremarkable Eyes: Unremarkable ENT: Unremarkable Respiratory: Unremarkable Cardiovascular: As per HPI Gastrointestinal: Unremarkable Genitourinary: As per HPI Musculoskeletal: Unremarkable Integumentary: Unremarkable Neurological: Unremarkable Lymphatics: Unremarkable Physical Examination - Vital Signs Temperature: 98.2 F Blood Pressure: 101/61 Pulse: 88 Respirations: 16 Pulse Ox (%): 97 - Physical Exam General: Alert, In no apparent distress, Oriented x3 HEENT: Atraumatic, Normocephalic, PERRLA Neck: Supple Respiratory: Clear to auscultation bilaterally, Normal air movement Cardiovascular: Regular rate/rhythm (paced), Other (no evidence of overload) Capillary refill: <2 Seconds Gastrointestinal: Normal bowel sounds, Soft and benign, Non-distended Musculoskeletal: No clubbing Integumentary: No rashes Neurological: Normal speech, Normal tone, Normal affect Lymphatics: No axilla or inguinal lymphadenopathy External genitalia: Deferred Rectal: Deferred - Studies Laboratory Data (last 24 hrs) 12/25/23 12/25/23 12/25/23 02:33 02:33 02:33 WBC Cancelled Hgb Cancelled Hct Cancelled Plt Count Cancelled PT Cancelled INR Cancelled APTT Cancelled Sodium Cancelled Potassium Cancelled BUN Cancelled Creatinine Cancelled Glucose Cancelled Magnesium Cancelled Total Bilirubin Cancelled AST Cancelled ALT Cancelled Alkaline Phosphatase Cancelled Lipase Cancelled Assessment And Plan - Plan Assessment & Plan - Problems (Diagnosis) (1) Combined systolic and diastolic congestive heart failure Current Visit: Yes Status: Acute (2) Atrial fibrillation Current Visit: No Status: Chronic Qualifiers: (3) CHF (congestive heart failure) Current Visit: No Status: Chronic Qualifiers: (4) CKD (chronic kidney disease) Current Visit: No Status: Chronic Qualifiers: (5) Coronary artery disease Current Visit: No Status: Chronic Qualifiers: (6) Diabetes Current Visit: No Status: Chronic Qualifiers: (7) Hypertension Current Visit: No Status: Chronic Qualifiers: (8) Morbid (severe) obesity due to excess calories Current Visit: No Status: Chronic - Plan 1. Patient with combined systolic and diastolic heart failure; patient with a history of systolic dysfunction with an ejection fraction of 25 to 30%. Patient also had diastolic dysfunction on her last echocardiogram a few months ago. Continue with gentle diuresing at this time. Patient was significant uremia and elevated creatinine so we need to cautiously diurese at this time. Will get cardiology consultation and get a repeat echocardiogram. Patient will also get nephrology consultation as patient with CKD and with significantly elevated uremia. 2. Patient with CKD with prerenal azotemia; patient with significant uremia but no evidence of GI bleeding. Patient with cautious diuresing. Will monitor strict I's and O's. Will get nephrology input as well. 3. History of atrial fibrillation; continue with medication for rate control and anticoagulation 4. History of hypertension; monitor hemodynamics closely and resume antihypertensives Discharge Plan: Home Plan to discharge in: Greater than 2 days - Advance Directives Does patient have a Living Will: Yes Does patient have a Durable POA for Healthcare: Yes - Code Status/Comfort Care Code Status Assessed: Yes Code Status: Full Code Critical Care: No Discharge Plan: Home
--- NOTE | 2023-12-26 10:56 | P.DS ---
Admission Date: 12/27/23 Discharge Date: 12/27/23 Disposition: ROUTINE DISCHARGE Discharge Condition: GOOD Reason for Admission: Shortness of breath Consultations: Dr. Garza Brief History of Present Illness: Patient is a 78-year-old female came to the hospital with shortness of breath. She states her shortness of breath has been going on for the last 3 days. She has multiple cardiac issues but she follows up with local cardiology Dr. Moore. Is been taking a lot of ibuprofen daily because of her low back pain. Some days she takes 2 or 3 at a time. Patient had an echocardiogram done earlier this year which showed an ejection fraction of 25 to 30%. Patient had global hypokinesis along with some moderate diastolic dysfunction. Patient's chest x- ray shows minimal pulmonary edema. Patient is not hypoxic at this time. She does have some bilateral lower extremity edema. Patient will be admitted to the hospital for further workup. Initial troponin was negative. BNP greater than 20,000. Patient will be admitted with cardiology consultation. Hospital Course: Ms. Simpson is at her baseline. She has no complaints. Denies nausea/vomiting/shortness of breath. On exam, she is sitting up eating breakfast unassisted. She denies edema, leg pain, chest pain. It was noted over the course of her admission that her Dilantin level was elevated at 24. Recommend skipping today's Dilantin doses and then starting her regular medication twice daily instead of 3 times daily until follow-up. Dr. Garza saw her while in the hospital and would like her to continue her current regimen. We will discharge her with 40 mg Lasix p.o. twice daily, jardiance 10mg, and spironolactone 12.5mg along with her current medications. We recommend avoidance of nephrotoxic medication such as Advil, Motrin, Aleve. Her kidney function has returned to baseline. Vital Signs/Physical Exam: Temp Pulse Resp BP Pulse Ox 98.2 F 88 16 101/61 97 12/26/23 08:00 12/26/23 08:33 12/26/23 08:00 12/26/23 08:33 12/26/23 08:00 General: Alert, In no apparent distress, Oriented x3 HEENT: Atraumatic, Normocephalic Neck: Supple Respiratory: Normal air movement, Other (mild right upper occasional expiratory wheeze) Cardiovascular: Normal pulses, Regular rate/rhythm Capillary refill: <2 Seconds Gastrointestinal: Soft and benign, No ascites Musculoskeletal: No clubbing Integumentary: No rashes Neurological: Normal speech, Normal tone, Normal affect Lymphatics: No axilla or inguinal lymphadenopathy External genitalia: Deferred Rectal: Deferred Laboratory Data at Discharge: WBC 4.60 thou/uL (4.3-10.9) 12/26/23 05:10 Hgb 10.9 g/dL (12.0-15.0) L 12/26/23 05:10 Hct 32.8 % (36.0-45.0) L 12/26/23 05:10 Plt Count 171 thou/uL (152-406) 12/26/23 05:10 PT 13.2 SECONDS (9.4-12.5) H 12/25/23 05:59 INR 1.18 12/25/23 05:59 APTT 32.0 SECONDS (24.3-36.9) 12/25/23 05:59 Sodium 140 mEq/L (136-145) 12/26/23 05:10 Potassium 3.9 mEq/L (3.5-5.1) 12/26/23 05:10 BUN 88 mg/dL (7-18) H 12/26/23 05:10 Creatinine 2.22 mg/dL (0.55-1.02) H 12/26/23 05:10 Glucose 96 mg/dL (74-106) 12/26/23 05:10 Phosphorus 5.1 mg/dL (2.5-4.9) H 12/26/23 05:10 Magnesium 2.3 mg/dL (1.6-2.4) 12/26/23 05:10 Total Bilirubin 0.4 mg/dL (0.2-1.0) 12/26/23 05:10 AST 34 U/L (15-37) 12/26/23 05:10 ALT 34 U/L (13-56) 12/26/23 05:10 Alkaline Phosphatase 119 U/L (45-117) H 12/26/23 05:10 Lipase 37 U/L (13-75) 12/25/23 05:59 Home Medications: Atorvastatin Calcium [Lipitor] 40 mg PO BEDTIME 06/19/22 Insulin NPH Human Isophane [Novolin N] 15 unit SQ DAILY 08/07/21 Insulin NPH Human Isophane [Novolin N] 15 unit SQ BEDTIME 06/30/23 Apixaban [Eliquis *] 2.5 mg PO BID 07/26/23 Aspirin [Aspirin EC] 81 mg PO DAILY 07/26/23 Clopidogrel Bisulfate [Plavix] 75 mg PO DAILY 07/26/23 predniSONE [Prednisone] 50 mg PO DAILY 07/26/23 Amiodarone HCl [Cordarone*] 200 mg PO DAILY tab 07/30/23 Furosemide [Lasix] 40 mg PO BID 30 Days #60 tab 07/30/23 Midodrine HCl [Proamatine*] 5 mg PO TID tab 07/30/23 Potassium Chloride [K-Dur] 20 meq PO 30 MIN BEFORE HS 30 Days #30 tab 07/30/23 carvediloL [Coreg*] 3.125 mg PO BID 6AM 6PM 30 Days #60 tab 07/30/23 PHENYTOIN ER Cap [Dilantin ER Cap*] 300 mg PO SEECOM 12/25/23 Physician Discharge Instructions: Ms. Simpson is at her baseline. She has no complaints. Denies nausea/vomiting/shortness of breath. On exam, she is sitting up eating b reakfast unassisted. She denies edema, leg pain, chest pain. It was noted over the course of her admission that her Dilantin level was elevated at 24. Recommend skipping today's Dilantin doses and then starting her regular medication twice daily instead of 3 times daily until follow-up. Dr. Garza saw her while in the hospital and would like her to continue her current regimen. We will discharge her with 40 mg Lasix p.o. twice daily, jardiance 10mg po daily, and spironolactone 12.5mg po daily. We recommend avoidance of nephrotoxic medication such as Advil, Motrin, Aleve. Her kidney function has returned to baseline. Patient with combined systolic and diastolic heart failure; patient with a history of systolic dysfunction with an ejection fraction of 25 to 30%. Patient also had diastolic dysfunction on her last echocardiogram a few months ago. History of atrial fibrillation; continue with medication for rate control and anticoagulation. History of hypertension; monitor closely and resume antihypertensives. She has CKD and with significantly elevated uremia (patient with significant uremia but no evidence of GI bleeding). She has CKD with prerenal azotemia New medications: Lasix 40 mg p.o. BID #60 Jardiance 10mg po daily #30 Spironolactone 12.5 mg po daily #30 Continue Amiodarone 200 mg daily Continue Eliquis 2.5 mg po BID Continue ASA 81 mg daily Continue Plavix 75 mg daily Continue Lipitor 40 mg daily Follow up with Nephrology in 1-2 weeks Follow up with Dr. Garza in 1-2 weeks Diet: AHA Activity: Fall precautions Followup: Arden Garza MD [ACTIVE - CAN ADMIT] - KERVIN COLON [Primary Care Provider] -
[2023-12-26] MEDS: LORAZEPAM 0.5 MG TABLET PO ONE (13:03)
--- NOTE | 2023-12-26 15:23 | ECHO ---
HEIGHT: 5 ft 0 in WEIGHT: 152 lb 0 oz DATE OF STUDY: 12/26/[address]: Sylvie Fritz MD 2-DIMENSIONAL: YES M.MODE: YES DOPPLER: YES COLOR FLOW: YES TDS: NO PORTABLE: YES DEFINITY: NO BUBBLE STUDY: NO DIAGNOSIS: CONGESTIVE HEART FAILURE CARDIAC HISTORY: CATHERIZATION: NO SURGERY: NO PROSTHETIC VALVE: NO PACEMAKER: YES MEASUREMENTS (cm) DIASTOLIC (NORMALS) SYSTOLIC (NORMALS) IVSd 1.2 (0.6-1.2) LA Diam 4.1 (1.9-4.0) LVEF 15-20% LVIDd 5.8 (3.5-5.7) LVIDs 5.3 (2.0-3.5) %FS 8% LVPWd 1.2 (0.6-1.2) Ao Diam 2.8 (2.0-3.7) 2 DIMENSIONAL ASSESSMENT: RIGHT ATRIUM: NORMAL LEFT ATRIUM: NORMAL RIGHT VENTRICLE: NORMAL, PACEMAKER LEAD LEFT VENTRICLE: SEVERELY DILATED TRICUSPID VALVE: MODERATE TRICUSPID REGURGITATION MITRAL VALVE: MILD MITRAL REGURGITATION PULMONIC VALVE: NORMAL AORTIC VALVE: NORMAL PERICARDIAL EFFUSION: NONE AORTIC ROOT: NORMAL LEFT VENTRICULAR WALL MOTION: SEVERE GLOBAL HYPOKINESIS. DOPPLER/COLOR FLOW: GRADE III DIASTOLIC DYSFUNCTION. COMMENTS: 1. SEVERELY REDUCED LEFT VENTRICULAR SYSTOLIC FUNCTION. LEFT VENTRICULAR EJECTION FRACTION 15-20%. SEVERE GLOBAL HYPOKINESIS. 2. GRADE III DIASTOLIC DYSFUNCTION. 3. ELEVATED FILLING PRESSURE. RIGHT ATRIAL PRESSURE 15-20 mmHg. 4. MODERATE TRICUSPID REGURGITATION. 5. MODERATE PULMONARY HYPERTENSION. RIGHT VENTRICULAR SYSTOLIC PRESSURE 50-55 mmHg. TECHNOLOGIST: CELESTE GOMEZ
--- NOTE | 2023-12-26 15:28 | P.PN ---
Date of Service: 12/26/23 Ms. Simpson is at her baseline. She has no complaints. Denies nausea/vomiting/shortness of breath. On exam, she is sitting up eating b reakfast unassisted. She denies edema, leg pain, chest pain. It was noted over the course of her admission that her Dilantin level was elevated at 24. Recommend skipping today's Dilantin doses and then starting her regular medication twice daily instead of 3 times daily until follow-up. Dr. Garza saw her while in the hospital and would like her to continue her current regimen, and we will need to diurese her a bit more. She had an ECHO this am that showed severe hypokinesis and an even lower EF at 15-20%. Her kidney function is improving. Subjective: 10-point ROS is otherwise unremarkable Vital Signs/Physical Exam: Temp Pulse Resp BP Pulse Ox 98.2 F 88 16 101/61 97 12/26/23 08:00 12/26/23 08:33 12/26/23 08:00 12/26/23 08:33 12/26/23 08:00 General: Alert, In no apparent distress, Oriented x3 HEENT: Atraumatic, Normocephalic Neck: Supple Respiratory: Normal air movement, Other (mild right upper occasional expiratory wheeze) Cardiovascular: Normal pulses, Regular rate/rhythm Capillary refill: <2 Seconds Gastrointestinal: Soft and benign, No ascites Musculoskeletal: No clubbing Integumentary: No rashes Neurological: Normal speech, Normal tone, Normal affect Lymphatics: No axilla or inguinal lymphadenopathy External genitalia: Deferred Rectal: Deferred Laboratory Data this am: WBC 4.60 thou/uL (4.3-10.9) 12/26/23 05:10 Hgb 10.9 g/dL (12.0-15.0) L 12/26/23 05:10 Hct 32.8 % (36.0-45.0) L 12/26/23 05:10 Plt Count 171 thou/uL (152-406) 12/26/23 05:10 PT 13.2 SECONDS (9.4-12.5) H 12/25/23 05:59 INR 1.18 12/25/23 05:59 APTT 32.0 SECONDS (24.3-36.9) 12/25/23 05:59 Sodium 140 mEq/L (136-145) 12/26/23 05:10 Potassium 3.9 mEq/L (3.5-5.1) 12/26/23 05:10 BUN 88 mg/dL (7-18) H 12/26/23 05:10 Creatinine 2.22 mg/dL (0.55-1.02) H 12/26/23 05:10 Glucose 96 mg/dL (74-106) 12/26/23 05:10 Phosphorus 5.1 mg/dL (2.5-4.9) H 12/26/23 05:10 Magnesium 2.3 mg/dL (1.6-2.4) 12/26/23 05:10 Total Bilirubin 0.4 mg/dL (0.2-1.0) 12/26/23 05:10 AST 34 U/L (15-37) 12/26/23 05:10 ALT 34 U/L (13-56) 12/26/23 05:10 Alkaline Phosphatase 119 U/L (45-117) H 12/26/23 05:10 Lipase 37 U/L (13-75) 12/25/23 05:59 Assessment & Plan - Problems (Diagnosis) (1) Combined systolic and diastolic congestive heart failure Current Visit: Yes Status: Acute (2) Atrial fibrillation Current Visit: No Status: Chronic Qualifiers: (3) CHF (congestive heart failure) Current Visit: No Status: Chronic Qualifiers: (4) CKD (chronic kidney disease) Current Visit: No Status: Chronic Qualifiers: (5) Coronary artery disease Current Visit: No Status: Chronic Qualifiers: (6) Diabetes Current Visit: No Status: Chronic Qualifiers: (7) Hypertension Current Visit: No Status: Chronic Qualifiers: (8) supratherapeutic Dilantin level Acute - Plan 1. Patient with combined systolic and diastolic heart failure; patient with a history of systolic dysfunction with an ejection fraction of 25 to 30%. Patient also had diastolic dysfunction on her last echocardiogram a few months ago. Con tinue with gentle diuresing at this time. Patient was significant uremia and elevated creatinine so we need to cautiously diurese at this time. Will get cardiology consultation and get a repeat echocardiogram. (10-25%) Patient will also get nephrology consultation as patient with CKD and with significantly elevated uremia. 2. Patient with CKD with prerenal azotemia; patient with significant uremia but no evidence of GI bleeding. Patient with cautious diuresing. Will monitor strict I's and O's. Will get nephrology input as well. 3. History of atrial fibrillation; continue with medication for rate control and anticoagulation 4. History of hypertension; monitor hemodynamics closely and resume antihypertensives 5. Repeat echo - 12/26/23 - pt will need to remain in hospital for further diuresis 6. Stop dilantin x 2 doses and then resume BID instead of TID Discharge Plan: Home Plan to discharge in: Greater than 2 days - Advance Directives Does patient have a Living Will: Yes Does patient have a Durable POA for Healthcare: Yes - Code Status/Comfort Care Code Status Assessed: Yes Code Status: Full Code Critical Care: No
[2023-12-27 01:41] VITALS: O2SAT 100
[2023-12-27 04:50] LABS: Absolute Eosinophils 0.2 K/uL (0-0.5); Absolute Lymphocytes (CBC) 1.2 K/uL (0.7-4.9); Absolute Monocytes 0.4 K/uL (0.1-1.3); Absolute Neutrophil 2.9 K/uL (1.8-8.0); Basophils % 0.7 % (0-1.3); Eosinophils % 4.6 % (0-4.4); Hematocrit 32.2 % (36.0-45.0); Hemoglobin 10.7 g/dL (12.0-15.0); Lymphocytes % 25.2 % (15.3-44.8); MCH 34.5 pg (27.0-35.0); MCHC 33.3 g/dL (32.0-36.0); MCV 103.6 fL (80-100); MPV 10.4 fL (7.6-11.3); Monocytes % 9.1 % (3.3-12.3); Neutrophils % 60.4 % (41.7-73.7); Nucleated Red Blood Cells % 0.1 % (0-0); Platelets 186 thou/uL (152-406); RBC Red Blood Cell Count 3.11 M/uL (3.86-4.86); Red Cell Distribution Width 15.6 % (12.1-15.2)
[2023-12-27 05:04] LABS: Anion Gap 10.6 mEq/L (5.0-15.0); Potassium 3.6 mEq/L (3.5-5.1)
--- NOTE | 2023-12-27 10:50 | P.PN ---
Subjective Date of Service: 12/27/23 Chief Complaint: Shortness of breath Subjective: No new changes, No C/O voiced, Tolerating diet, Ambulating, Improving Review of Systems 10-point ROS is otherwise unremarkable Physical Examination - Vital Signs Temperature: 97.2 F Blood Pressure: 109/71 Pulse: 84 Respirations: 12 Pulse Ox (%): 100 - Physical Exam General: Alert, In no apparent distress HEENT: Atraumatic, PERRLA, EOMI Neck: Supple, JVD not distended Respiratory: Clear to auscultation bilaterally, Normal air movement Cardiovascular: Regular rate/rhythm, Normal S1 S2 Gastrointestinal: Normal bowel sounds, No tenderness Musculoskeletal: No tenderness Integumentary: No rashes Neurological: Normal speech, Normal tone, Normal affect Lymphatics: No axilla or inguinal lymphadenopathy - Studies Laboratory Data (last 24 hrs) 12/27/23 12/27/23 04:12 04:12 WBC 4.70 Hgb 10.7 L Hct 32.2 L Plt Count 186 Sodium 139 Potassium 3.6 BUN 94 H Creatinine 2.02 H Glucose 117 H Medications List Reviewed: Yes Assessment And Plan - Current Problems (Diagnosis) (1) Combined systolic and diastolic congestive heart failure Current Visit: Yes Status: Acute Plan: switch Lasix to 40 mg PO BID add Jardiance 10 mg daily add Aldactone 12.5 mg daily Monitor input and output and electrolytes. (2) Atrial fibrillation with RVR Current Visit: No Status: Acute Plan: continue Amiodarone 200 mg daily continue Eliquis 2.5 mg po BID (3) Coronary artery disease Current Visit: No Status: Chronic Plan: Continue ASA 81 mg daily Continue Plavix 75 mg daily Continue Lipitor 40 mg daily Qualifiers:
[2023-12-27] MEDS: SIMETHICONE 80 MG CHEWABLE TAB PO ONE ×2 (11:29→11:44)
[2023-12-27 12:17] VITALS: BP 104/67; TEMP 97.3
--- NOTE | 2023-12-28 15:13 | EKG ---
Test Date: 2023-12-25 Test Time: 18:48:06 Traction Power Engineer: MILES MEASUREMENT RESULTS: Intervals: Rate: 124 IA: QRSD: 168 QT: 420 QTc: 603 [place]: P: IA: QRS: 64 T: 259 INTERPRETIVE STATEMENTS: Wide QRS tachycardia Left bundle branch block Abnormal ECG Compared to ECG 12/25/2023 03:08:54 Wide-QRS tachycardia now present Left bundle-branch block now present Ventricular-paced complex(es) or rhythm no longer present AV dual-paced complex(es) or rhythm no longer present Electronically Signed On 12-28-23 15:09:37 TRAFFIC SIGN SUPERVISOR by Arden Garza
== END 2023-12-27 12:39 | disposition home or self-care (01) | DRG 291 ==
LOC: ER 02:20 → ERHOLD 10:02 → 2ND 10:42 → OBSVTOIN 12-27 05:31
PROVIDERS: ADMIT Hospitalist; ATTEND Internal Medicine
DX: I13.0 Hypertensive heart and chronic kidney disease with heart failure and stage 1 through stage 4 chronic kidney disease, or unspecified chronic kidney disease (principal); I50.43 Acute on chronic combined systolic (congestive) and diastolic (congestive) heart failure; N18.4 Chronic kidney disease, stage 4 (severe); I25.10 Atherosclerotic heart disease of native coronary artery without angina pectoris; I25.2 Old myocardial infarction; E11.22 Type 2 diabetes mellitus with diabetic chronic kidney disease; Z79.4 Long term (current) use of insulin; E11.40 Type 2 diabetes mellitus with diabetic neuropathy, unspecified; I48.91 Unspecified atrial fibrillation; Z79.01 Long term (current) use of anticoagulants; G40.909 Epilepsy, unspecified, not intractable, without status epilepticus; Z95.810 Presence of automatic (implantable) cardiac defibrillator; Z90.49 Acquired absence of other specified parts of digestive tract; E78.5 Hyperlipidemia, unspecified; E66.01 Morbid (severe) obesity due to excess calories; Z68.29 Body mass index [BMI] 29.0-29.9, adult
CPT/HCPCS: 36415; 71045; 80048; 80053; 80076; 80185; 81001; 82550; 82947; 83690; 83735; 83880; 84100; 84484; 85025; 85379; 85610; 85730; 93005; 93306; 96365; 96375; 99285; J1815; J1940; J2405; P9047

== ENCOUNTER 2024-04-23 22:57 | Inpatient (IN) | payer OTHER ==
--- NOTE | 2024-04-24 02:19 | RAD REPORT ---
EXAM: CT Head and Cervical Spine Without Intravenous Contrast CLINICAL HISTORY: The patient is 79 years old and is Female; fall at home TECHNIQUE: Axial computed tomography images of the head/brain and cervical spine without intravenous contrast. Sagittal and coronal reformatted images were created and reviewed. This CT exam was performed using one or more of the following dose reduction techniques: automated exposure control, adjustmen t of the mA and/or kV according to patient size, and/or use of iterative reconstruction technique. COMPARISON: No relevant prior studies available. FINDINGS: BRAIN: There is diffuse cerebral atrophy present, consistent with this patient's age. There is patchy hypoattenuation of the deep white matter which is non-specific, but most likely owing to chronic small vessel ischemic change in a patient of this age group. No intracranial hemorrhage, ma ss effect or midline shift is seen. There are no extra-axial fluid collections. The venegas-white differentiation is maintained. There is no cerebral edema. VENTRICLES: Unremarkable. No ventriculomegaly. SKULL: No acute fracture. SINUSES: Unremarkable as visualized. No acute sinusitis. MASTOID AIR CELLS: Unremarkable as visualized. No mastoid effusion. VERTEBRAE: Straightening of the normal cervical curvature is present. Minimal anterolisthesis o f C4 on C5 secondary to degenerative facet arthropathy is present. The vertebral body heights and alignment are otherwise maintained. There is no acute fracture. Mild facet arthropathy throughout the cervical spine is present. DISCS/SPINAL CANAL/NEURAL FORAMINA: Minimal discal calcification is noted at multiple levels. The intervertebral disc spaces are maintained. No spinal canal stenosis. SOFT TISSUES: The soft tissues are normal. LUNG APICES: The lung apices are clear. IMPRESSION: 1. No acute intracranial findings. 2. Straightening of the normal cervical curvature is present. Findings may be secondary to patien t position versus muscle spasm. No acute fracture. Electronically signed by: Maya Schultz MD 04/24/2024 02:15 AM [facility] Transcribed Date/Time: 04/24/2024 2:18 AM
--- NOTE | 2024-04-24 02:19 | RAD REPORT ---
EXAM: CT Chest, Abdomen and Pelvis Without Intravenous Contrast CLINICAL HISTORY: The patient is 79 years old and is Female; acute fall TECHNIQUE: Axial computed tomography images of the chest, abdomen and pelvis without intravenous contrast. S agittal and coronal reformatted images were created and reviewed. This CT exam was performed using one or more of the following dose reduction techniques: automated exposure control, adjustmen t of the mA and/or kV according to patient size, and/or use of iterative reconstruction technique. COMPARISON: No relevant prior studies available. FINDINGS: ARTIFACTS: The exam is suboptimal secondary to motion artifact. CHEST: LUNGS: Suggestion of scarring within the right lung apex. The lungs are otherwise well-inflated a nd clear. There is no lobar consolidation. Enlargement of the pulmonary vessels is noted. PLEURAL SPACE: Unremarkable. No significant effusion. No pneumothorax. HEART: The heart is enlarged. Calcification of the coronary vessels is noted. ABDOMEN: LIVER: Homogeneous without focal mass. GALLBLADDER AND BILE DUCTS: Surgical clips are present in the right upper quadrant, consistent wi th previous cholecystectomy. PANCREAS: Fatty infiltration and atrophy of the pancreas is present. No ductal dilation. SPLEEN: Unremarkable. ADRENALS: Unremarkable. No mass. KIDNEYS AND URETERS: The kidneys are atrophic. No hydronephrosis or hydroureter of either kidney is noted. Exophytic right renal cyst is present. No follow-up imaging is recommended. STOMACH AND BOWEL: The stomach is minimally filled with fluid and air. The small bowel is normal in caliber. Stool is present throughout the colon. Scattered colonic diverticula are noted without surrounding inflammation. There is no mucosal thickening or evidence of obstruction. PELVIS: APPENDIX: No findings to suggest acute appendicitis. BLADDER: The bladder is well distended. No stones. REPRODUCTIVE: Unremarkable as visualized. CHEST, ABDOMEN and PELVIS: INTRAPERITONEAL SPACE: Unremarkable. No significant fluid collection. No free air. BONES/JOINTS: Acute fractures of left posterior ninth and 10th ribs are noted. Healing right-side d rib fractures are noted. There is no other acute fracture of the visualized axial and appendicular skeleton. The vertebral body heights are maintained. Bilateral pars defects are present at L5 with grade 1 anterolisthesis. Degenerative change specifically of the lower lumbar spine is noted. Anterior osteophyte formation of the thoracic spine is present. SOFT TISSUES: The soft tissues are normal. VASCULATURE: Atherosclerosis of the vasculature is present. The vessels are normal in caliber. LYMPH NODES: Unremarkable. No enlarged lymph nodes. TUBES, LINES AND DEVICES: A left-sided pacemaker is present. IMPRESSION: 1. No evidence of solid organ injury on this noncontrasted CT of the chest, abdomen, and pelvis. 2. Acute left posterior ninth and 10th rib fractures. 3. Chronic findings as detailed above. Electronically signed by: Maya Schultz MD 04/24/2024 02:11 AM [facility] Due to temporary technical issues with the PACS/[employer] reporting system, reports are being eddie d by the in-house radiologist without review as a courtesy to ensure prompt reporting the interpreting radiologist is fully responsible for the content of the report. Transcribed Date/Time: 04/24/2024 2:19 AM
--- NOTE | 2024-04-24 02:49 | RAD REPORT ---
EXAM: Extrem Venous W Compress [place] US Bilateral Lower Extremity Venous Duplex Doppler HISTORY: bilateral leg swelling COMPARISON: US bilateral leg vein 07/20/2022 TECHNIQUE: Grayscale, color Doppler, duplex Doppler, spectral Doppler images and analysis with compre ssion and augmentation of right and left lower extremity veins. FINDINGS: Right and Left common femoral, greater saphenous, femoral, deep (profunda) femoral, popliteal, rn operating room ior tibial veins unremarkable without evidence of clot. IMPRESSION: No sonographic evidence of right or left lower extremity DVT. Electronically signed by: Haider Davis MD 04/24/2024 02:46 AM [facility] Due to temporary technical issues with the PACS/[employer] reporting system, reports are being signed by the in-house radiologist without review as a courtesy to ensure prompt reporting the interpreting radiologist is fully responsible for the content of the report. Transcribed Date/Time: 04/24/2024 2:49 AM
[2024-04-24 03:02] LABS: Absolute Eosinophils 0.1 K/uL (0-0.5); Absolute Lymphocytes (CBC) 1.1 K/uL (0.7-4.9); Absolute Monocytes 0.6 K/uL (0.1-1.3); Absolute Neutrophil 5.3 K/uL (1.8-8.0); Basophils % 0.5 % (0-1.3); Eosinophils % 1.6 % (0-4.4); Hematocrit 34.7 % (36.0-45.0); Hemoglobin 11.9 g/dL (12.0-15.0); Lymphocytes % 15.9 % (15.3-44.8); MCH 34.3 pg (27.0-35.0); MCHC 34.3 g/dL (32.0-36.0); MPV 10.4 fL (7.6-11.3); Monocytes % 8.3 % (3.3-12.3); Neutrophils % 73.7 % (41.7-73.7); Nucleated Red Blood Cells % 0.2 % (0-0); Platelets 176 thou/uL (152-406); RBC Red Blood Cell Count 3.47 M/uL (3.86-4.86); Red Cell Distribution Width 14.2 % (12.1-15.2)
[2024-04-24 03:24] LABS: Albumin 3.6 g/dL (3.4-5.0); Albumin/Globulin Ratio 0.8 (1.1-1.8); Anion Gap 15.3 mEq/L (5.0-15.0); Bilirubin Direct 0.2 mg/dL (0-0.2); Bilirubin Indirect, Calculated 0.3 mg/dL (0.2-0.8); Bilirubin Total 0.5 mg/dL (0.2-1.0); Globulin 4.4 g/dL (2.3-3.5); Magnesium 2.6 mg/dL (1.6-2.4); Potassium 5.3 mEq/L (3.5-5.1); Thyroid Stimulating Hormone 2.76 uIU/mL (0.358-3.740); Troponin High Sensitivity 36.9 pg/mL (<58.9)
[2024-04-24 04:56] LABS: PT Prothrombin Time 14.9 SECONDS (10.0-13.0); Protime INR 1.32
--- NOTE | 2024-04-24 05:12 | ER ---
Nurse's Notes [facility] Name: Teena Simpson Age: 79 yrs Sex: Female : 1945 Arrival Date: 04/23/2024 Time: 22:57 Bed 20 Private MD: Diagnosis: Acute on chronic combined systolic (congestive) and diastolic (congestive) heart failure;Acute on chronic renal insufficiency, generalized weakness, acute Left posterior rib fractures in the ribs #9 and 10. Presentation: 04/23 23:22 Chief complaint: Patient's son or daughter states: fell around 3:30 trying to get off vc1 of the commode legs are weak and usually uses a walker, been off balanced and short of breath. Coronavirus screen: Client denies travel out of the [place] in the last 14 days. At this time, the client does not indicate any symptoms associated with coronavirus-19. Ebola Screen: Patient negative for fever greater than or equal to 101.5 degrees Fahrenheit, and additional compatible Ebola Virus Disease symptoms Patient denies exposure to infectious person. Patient denies travel to an Ebola-affected area in the 21 days before illness onset. No symptoms or risks identified at this time. Initial Sepsis Screen: Does the patient meet any 2 criteria? No. Patient's initial sepsis screen is negative. Does the patient have a suspected source of infection? No. Patient's initial sepsis screen is negative. Risk Assessment: Do you want to hurt yourself or someone else? Patient reports no desire to harm self or others. Onset of symptoms is unknown. Care prior to arrival: None. 23:22 Method Of Arrival: Wheelchair vc1 23:22 Acuity: TYS[place] 3 vc1 Historical: - Allergies: 23:26 Augmentin; vc1 23:26 Cipro; vc1 23:26 Keppra; vc1 - Home Meds: 23:26 Phenytoin 100mg Oral 3 cap daily [Active]; carvedilol 3.125 mg oral tablet 2 tabs daily vc1 [Active]; furosemide 40 mg Oral tab 2 tabs daily [Active]; Eliquis 2.5 mg Oral tablet 2 tabs daily [Active]; midodrine 5 mg oral tablet prn [Active]; amiodarone 100 mg Oral tablet daily [Active]; clopidogrel 75 mg oral tablet [Active]; atorvastatin 40 mg Oral tab 1 tab every day at bedtime [Active]; Novolin N NPH U-100 Insulin 100 unit/mL Sub-Q tab 20 units every evening [Active]; ipratropium-albuterol 0.5 mg-3 mg(2.5 mg base)/3 mL inhalation Solution for Nebulization as needed [Active]; - PMHx: 23:26 Anxiety; Atrial Fib; CHF; High Cholesterol; Kidney failure stage 4; Hypertension; Low vc1 HR; Myocardial infarction; neuropathy; Seizures; Diabetes - IDDM; - PSHx: 23:26 Appendectomy; carpal tunnel; Hemorrhoidectomy; Pacemaker-Defib; vc1 - Immunization history:: Client reports receiving the 2nd dose of the Covid vaccine. - Infectious Disease History:: Denies. - Social history:: Smoking status: Patient denies any tobacco usage or history of. - Family history:: not pertinent. Screenin:30 [facility] ED Fall Risk Assessment (Adult) History of falling in the last 3 months, ay including since admission Yes- single mechanical fall (1 pt) Confusion or Disorientation No (0 pts) Intoxicated or Sedated No (0 pts) Impaired Gait Yes (1 pt) Mobility Assist Device Used Yes (1 pt) Altered Elimination No (0 pt) Score/Fall Risk Level 3 or more points = High Risk Oriented to surroundings, Maintained a safe environment, Educated pt \T\ family on fall prevention, incl call for assistance when getting out of bed. Abuse screen: Denies threats or abuse. Nutritional screening: No deficits noted. Tuberculosis screening: No symptoms or risk factors identified. Assessment: 23:30 General: Appears in no apparent distress. uncomfortable, Behavior is calm, cooperative. ay Pain: Complains of pain in Back and bilateral shoulders Pain currently is 10 out of 10 on a pain scale. Neuro: Level of Consciousness is awake, alert, obeys commands, Oriented to person, place, time, situation, Speech is normal. Cardiovascular: Reports nausea, Denies chest pain, shortness of breath, Capillary refill < 3 seconds. Respiratory: Airway is patent Respiratory effort is even, unlabored, Respiratory pattern is regular, symmetrical. GI: Abdomen is flat. : No signs and/or symptoms were reported regarding the genitourinary system. EENT: No signs and/or symptoms were reported regarding the EENT system. Derm: No signs and/or symptoms reported regarding the dermatologic system. 04/24 07:30 Reassessment: Pt sleepy, easy to awaken to verbal stimuli. Pt is A\T\O x 4. Equal and aa5 unlabored respirations, skin is pink/warm/dry. Pt's daughter at bedside. . 08:00 Reassessment: Pt resting in bed with eyes closed, respirations are even and unlabored, aa5 awaiting admission orders, no orders at this time. . 09:00 Reassessment: No changes from previously documented assessment. Awaiting admission aa5 orders. . 10:00 Reassessment: No changes from previously documented assessment. Awaiting admission aa5 orders. . Vital Signs: 04/23 23:22 Weight 48.53 kg; Height 5 ft. 0 in. ; Pain 10/10; vc1 23:32 BP 115 / 69; Pulse 89; Resp 15; Temp 98.2; Pulse Ox 100% ; vc1 04/24 05:45 BP 110 / 69; Pulse 89; Resp 19; Pulse Ox 99% on 3 lpm NC; ay 07:15 BP 112 / 69; Pulse 89; Resp 16 S; Temp 97.2(TE); Pulse Ox 99% on 2 lpm NC; aa5 08:15 BP 110 / 59; Pulse 89; Resp 14 S; Pulse Ox 97% on 2 lpm NC; aa5 09:00 BP 117 / 62; Pulse 89; Resp 14 S; Pulse Ox 99% on 2 lpm NC; aa5 03 23:22 Body Mass Index 20.90 (48.53 kg, 152.4 cm) vc1 04/23 23:22 Pain Scale: Adult vc1 [place] Coma Score: 04/23 23:30 Eye Response: spontaneous(4). Motor Response: obeys commands(6). Verbal Response: ay oriented(5). Total: 15. 04/24 05:04 Eye Response: spontaneous(4). Motor Response: obeys commands(6). Verbal Response: sp4 oriented(5). Total: 15. NIH Stroke Scale Scores: 05:04 NIHSS Score: 0 sp4 ED Course: 04/23 23:01 Patient arrived in ED. jj6 23:26 Triage completed. vc1 23:28 Jacky Casper MD is Attending Physician. sp4 23:31 Arm band placed on left wrist. vc1 03/06 00:41 XRAY Chest (1 view) In Process Unspecified. EDMS 01:12 CT Chest Abdomen Pelvis W/O Contrast In Process Unspecified. EDMS 01:12 CT Head C Spine In Process Unspecified. EDMS 01:42 Extrem Venous W Compression [place] US In Process Unspecified. EDMS 04:17 Tee Guo, RN is Primary Nurse. ay 04:53 Chest Single View XRAY In Process Unspecified. EDMS 05:00 Accessed Right IJ triple lumen central line. ay 05:09 Eron Mosley MD is Hospitalizing Provider. sp4 07:08 Hospitalizing Provider role handed off by Eron Mosley MD sp4 07:08 Mina Peralta is Hospitalizing Provider. sp4 07:15 Patient has correct armband on for positive identification. Placed in gown. Bed in low aa5 position. Call light in reach. Side rails up X2. Adult w/ patient. Client placed on continuous cardiac and pulse oximetry monitoring. NIBP monitoring applied. gluing crew leader on. Pulse ox on. NIBP on. 10:30 No provider procedures requiring assistance completed. Patient admitted, IV remains in aa5 place. Administered Medications: 05:31 Drug: Furosemide IVP 40 mg IVP once; give over 2 minutes Route: IVP; Site: right ay jugular; 07:16 Follow up: Response: No adverse reaction ay Medication: 12:46 VIS not applicable for this client. aa5 Point of Care Testing: Blood Glucose: 08:00 Blood Glucose: 253 mg/dL; aa5 Ranges: Outcome: 05:11 Decision to Hospitalize by Provider. sp4 10:30 Admitted to ER Hold. Please see [facility] for further documentation. aa5 10:30 Condition: stable 10:30 Instructed on the need for admit, Demonstrated understanding of instructions, 18:02 Patient left the ED. aa5 NIH Stroke Scale - NIH Stroke Score Date: 04/24/2024 Time: 05:04 Total Score = 0 10. Dysarthria (speech clarity - read or repeat words) - 0(Normal) 11. Extinction and Inattention (visual/tactile/auditory/spatial/personal) - 0(No abnormality) 1a. Level of Consciousness (LOC) - 0(Alert) 1b. Level of Consciousness (LOC) (Month \T\ Age) - 0(Both) 1c. LOC Commands (Open \T\ Closes Eyes/Harvest Worker Fruit) - 0(Both) 2. Best Gaze (Lateral Gaze Paresis) - 0(Normal) 3. Visual Field Loss - 0(No visual loss) 4. Facial Palsy - 0(Normal) 5a. Left Arm: Motor (10-second hold) - 0(No drift) 5b. Right Arm: Motor (10-second hold) - 0(No drift) 6a. Left Leg: Motor (5-second hold - always test supine) - 0(No drift) 6b. Right Leg: Motor (5-second hold - always test supine) - 0(No drift) 7. Limb Ataxia (finger/nose \T\ heel/cunningham - test with eyes open) - 0(Absent) 8. Sensory Loss (pinprick arms/legs/face) - 0(Normal) 9. Best Language: Aphasia (description/naming/reading) - 0(No aphasia) Initials: sp4 Signatures: Dispatcher [employer] Joan Connolly RN RN aa5 Pratima Perez6 Lizbet Max RN RN vc1 Jacky Casper MD MD sp4 Tee Guo RN RN ay Corrections: (The following items were deleted from the chart) 12:46 12:00 Admitted to ER Hold. Please see [facility] for further documentation. aa5 aa5 12:46 12:00 Condition: stable aa5 aa5 12:46 12:00 Instructed on the need for admit, Demonstrated understanding of aa5 instructions, aa5
--- NOTE | 2024-04-24 05:12 | EDPHYS ---
Physician Documentation [facility] Name: Teena Simpson Age: 79 yrs Sex: Female : 1945 Arrival Date: 04/23/2024 Time: 22:57 Bed 20 Private MD: ED Physician Jacky Casper HPI: 04/23 23:28 This 79 yrs old Female presents to ER via Wheelchair with complaints of Fall sp4 Injury, Back Pain. 04/24 04:59 This is a 79-year-old female with past medical history of atrial fibrillation, anxiety, sp4 congestive heart failure, hypercholesterolemia, kidney failure stage IV, hypertension, presents with several days of generalized weakness, dyspnea on exertion, bilateral lower extremity swelling, and several falls at home. Patient's medications include atorvastatin 40 mg bedtime, Novolin and daily, apixaban 2.5 mg twice daily, aspirin 81 mg daily, Plavix 75 mg daily, prednisone 50 mg daily, amiodarone 200 mg p.o. daily, furosemide 40 mg p.o. twice daily, midodrine 5 mg p.o. 3 times daily, carvedilol 3.125 mg p.o. twice daily, phenytoin 300 mg, atorvastatin 40 mg bedtime, Jardiance 10 mg daily, furosemide 40 mg twice daily, spironolactone 2.5 mg daily. Patient is following with Dr. Moore . . Historical: - Allergies: 04/23 23:26 Augmentin; vc1 23:26 Cipro; vc1 23:26 Keppra; vc1 - Home Meds: 23:26 Phenytoin 100mg Oral 3 cap daily [Active]; carvedilol 3.125 mg oral tablet 2 tabs daily vc1 [Active]; furosemide 40 mg Oral tab 2 tabs daily [Active]; Eliquis 2.5 mg Oral tablet 2 tabs daily [Active]; midodrine 5 mg oral tablet prn [Active]; amiodarone 100 mg Oral tablet daily [Active]; clopidogrel 75 mg oral tablet [Active]; atorvastatin 40 mg Oral tab 1 tab every day at bedtime [Active]; Novolin N NPH U-100 Insulin 100 unit/mL Sub-Q tab 20 units every evening [Active]; ipratropium-albuterol 0.5 mg-3 mg(2.5 mg base)/3 mL inhalation Solution for Nebulization as needed [Active]; - PMHx: 23:26 Anxiety; Atrial Fib; CHF; High Cholesterol; Kidney failure stage 4; Hypertension; Low vc1 HR; Myocardial infarction; neuropathy; Seizures; Diabetes - IDDM; - PSHx: 23:26 Appendectomy; carpal tunnel; Hemorrhoidectomy; Pacemaker-Defib; vc1 - Immunization history:: Client reports receiving the 2nd dose of the Covid vaccine. - Infectious Disease History:: Denies. - Social history:: Smoking status: Patient denies any tobacco usage or history of. - Family history:: not pertinent. ROS: 04/24 05:04 Constitutional: Negative for fever, chills, and weight loss, positive generalized sp4 weakness positive fall at home positive left chest wall pain positive dyspnea on exertion positive bilateral lower extremity swelling All other systems are negative, Exam: 05:04 Constitutional: This is a well developed, well nourished patient who is awake, alert, sp4 ill-appearing female, generalized pallor, bilateral lower extremity edema, physical deconditioning, nontoxic-appearing Head/Face: Normocephalic, atraumatic. Eyes: Pupils equal round and reactive to light, extra-ocular motions intact. Lids and lashes normal. Conjunctiva and sclera are not injected. Cornea within normal limits. Periorbital areas with no swelling, redness, or edema. ENT: Nares patent. No nasal discharge, no septal abnormalities noted. Tympanic membranes are normal and external auditory canals are clear. Oropharynx with no redness, swelling, or masses, exudates, or evidence of obstruction, uvula midline. Mucous membranes moist. Neck: Trachea midline, no thyromegaly or masses palpated, and no cervical lymphadenopathy. Supple, full range of motion without nuchal rigidity, or vertebral point tenderness. Chest/axilla: Normal chest wall appearance and motion. Nontender with no deformity. No lesions are appreciated. Cardiovascular: Regular rate and rhythm with a normal S1 and S2. No gallops, murmurs, or rubs. Normal PMI, positive jugular venous distention no pulse deficits. Respiratory: Lungs have equal breath sounds bilaterally, clear to auscultation and percussion. No rales, rhonchi or wheezes noted. No increased work of breathing, no retractions or nasal flaring. Abdomen/GI: Soft, with normal bowel sounds. No distension or tympany. No guarding or rebound. No evidence of tenderness throughout. Back: No spinal tenderness. No costovertebral tenderness. Skin: Warm, dry with normal turgor. Normal color with no rashes, no lesions, and no evidence of cellulitis. MS/ Extremity: Pulses equal, no cyanosis. Neurovascular intact. Bilateral lower extremity edema without pitting Neuro: Awake and alert, GCS 15, oriented to person, place, time, and situation. Cranial nerves II-XII grossly intact. Motor strength 5/5 in all extremities. Sensory grossly intact. Psych: Awake, alert, with orientation to person, place and time. Behavior, mood, and affect are within normal limits 06:47 ECG was reviewed by the Attending Physician. EKG at 0 557 paced rhythm rate 89. sp4 Dual-chamber pacemaker Vital Signs: 04/23 23:22 Weight 48.53 kg; Height 5 ft. 0 in. ; Pain 10/10; vc1 23:32 BP 115 / 69; Pulse 89; Resp 15; Temp 98.2; Pulse Ox 100% ; vc1 03 05:45 BP 110 / 69; Pulse 89; Resp 19; Pulse Ox 99% on 3 lpm NC; ay 07:15 BP 112 / 69; Pulse 89; Resp 16 S; Temp 97.2(TE); Pulse Ox 99% on 2 lpm NC; aa5 08:15 BP 110 / 59; Pulse 89; Resp 14 S; Pulse Ox 97% on 2 lpm NC; aa5 09:00 BP 117 / 62; Pulse 89; Resp 14 S; Pulse Ox 99% on 2 lpm NC; aa5 03 23:22 Body Mass Index 20.90 (48.53 kg, 152.4 cm) vc1 03 23:22 Pain Scale: Adult vc1 NIH Stroke Scale Scores: 05:04 NIHSS Score: 0 sp4 Isabel Coma Score: 04/23 23:30 Eye Response: spontaneous(4). Motor Response: obeys commands(6). Verbal Response: ay oriented(5). Total: 15. 04/24 05:04 Eye Response: spontaneous(4). Motor Response: obeys commands(6). Verbal Response: sp4 oriented(5). Total: 15. Procedures: 04:32 Central Line: the site was prepped with Betadine, in sterile fashion, a triple lumen sp4 catheter was inserted, in the right internal jugular vein, in 1 attempts. placement was verified, by CXR, by blood return, Ultrasound-guided central line, the site was dressed with 4X4s, Tegaderm, using sterile technique, the patient tolerated the procedure, well, Central line placed secondary to exhausted peripheral vascular access. MDM: 01:17 Medical Screening Exam initiated sp4 02:02 ED course: EXAM: XR Chest, 1 View CLINICAL HISTORY: The patient is 79 years old and is sp4 Female; CHEST PAIN TECHNIQUE: Frontal view of the chest. COMPARISON: No relevant prior studies available. FINDINGS: Lungs: Prominent interstitial markings. Peribronchial thickening. No consolidation. Pleural space: Unremarkable. No pneumothorax. Heart: Unremarkable. Mediastinum: Unremarkable. Normal mediastinal contour. Bones/joints: No acute findings. Tubes, lines and devices: Left-sided pacemaker/AICD. IMPRESSION: Prominent interstitial markings. Peribronchial thickening. No consolidation. Electronically signed by: Santiago Mancia MD 04/24/2024 01:21 AM [facility] . 04:55 ED course: FINDINGS: BRAIN: There is diffuse cerebral atrophy present, consistent with sp4 this patient's age. There is patchy hypoattenuation of the deep white matter which is non-specific, but most likely owing to chronic small vessel ischemic change in a patient of this age group. No intracranial hemorrhage, mass effect or midline shift is seen. There are no extra-axial fluid collections. The venegas-white differentiation is maintained. There is no cerebral edema. VENTRICLES: Unremarkable. No ventriculomegaly. SKULL: No acute fracture. SINUSES: Unremarkable as visualized. No acute sinusitis. MASTOID AIR CELLS: Unremarkable as visualized. No mastoid effusion. VERTEBRAE: Straightening of the normal cervical curvature is present. Minimal anterolisthesis of C4 on C5 secondary to degenerative facet arthropathy is present. The vertebral body heights and alignment are otherwise maintained. There is no acute fracture. Mild facet arthropathy throughout the cervical spine is present. RADIOLOGY SERVICES REPORT (Continued) DISCS/SPINAL CANAL/NEURAL FORAMINA: Minimal discal calcification is noted at multiple levels. The intervertebral disc spaces are maintained. No spinal canal stenosis. SOFT TISSUES: The soft tissues are normal. LUNG APICES: The lung apices are clear. IMPRESSION: 1. No acute intracranial findings. 2. Straightening of the normal cervical curvature is present. Findings may be secondary to patient position versus muscle spasm. No acute fracture. . ED course: US Bilateral Lower Extremity Venous Duplex Doppler HISTORY: bilateral leg swelling COMPARISON: US bilateral leg vein 07/20/2022 TECHNIQUE: Grayscale, color Doppler, duplex Doppler, spectral Doppler images and analysis with compression and augmentation of right and left lower extremity veins. FINDINGS: Right and Left common femoral, greater saphenous, femoral, deep (profunda) femoral, popliteal, posterior tibial veins unremarkable without evidence of clot. IMPRESSION: No sonographic evidence of right or left lower extremity DVT.. ED course: CHEST, ABDOMEN and PELVIS: INTRAPERITONEAL SPACE: Unremarkable. No significant fluid collection. No free air. BONES/JOINTS: Acute fractures of left posterior ninth and 10th ribs are noted. Healing right-sided rib fractures are noted. There is no other acute fracture of the visualized axial and appendicular skeleton. The vertebral body heights are maintained. Bilateral pars defects are present at L5 with grade 1 anterolisthesis. Degenerative change specifically of the lower lumbar spine is noted. Anterior osteophyte formation of the thoracic spine is present. SOFT TISSUES: The soft tissues are normal. VASCULATURE: Atherosclerosis of the vasculature is present. The vessels are normal in caliber. LYMPH NODES: Unremarkable. No enlarged lymph nodes. TUBES, LINES AND DEVICES: A left-sided pacemaker is present. IMPRESSION: 1. No evidence of solid organ injury on this noncontrasted CT of the chest, abdomen, and pelvis. 2. Acute left posterior ninth and 10th rib fractures. 3. Chronic findings as detailed above. Electronically signed by: Maya Schultz MD . 05:11 Differential diagnosis: abrasion, closed head injury, contusion, fracture, laceration, sp4 multiple trauma, sprain, strain. Data reviewed: vital signs, nurses notes, old medical records, lab test result(s), EKG, radiologic studies, CT scan, plain films. Consideration of Admission/Observation Patient was admitted/placed on observation. Escalation of care including admission/observation considered. Management of patient was discussed with the following: Hospitalist: Dimitri SQUIRES . 07:16 ED course: EXAM: XR Chest, 1 View CLINICAL HISTORY: The patient is 79 years old and is sp4 Female; Central line placement TECHNIQUE: Single view of the chest. COMPARISON: April 24, 2024 12:33 AM. FINDINGS: Lungs: Mild interstitial edema. Pleural space: No pneumothorax. Heart: Cardiomegaly. Left-sided ICD/pacer. Mediastinum: Unremarkable. Bones/joints: The bones and joints are unchanged as visualized. Tubes, lines and devices: Right IJ line is at the SVC/RA junction. Upper abdomen: No free air in the visualized upper abdomen. IMPRESSION: 1. Right IJ line is at the SVC/RA junction. No pneumothorax visualized. 2. Mild interstitial edema. . 04/24 00:08 Order name: Basic Metabolic Panel; Complete Time: 03:58 sp4 04/24 00:08 Order name: CBC with Diff; Complete Time: 03:58 sp4 04/24 00:08 Order name: LFT's; Complete Time: 03:58 sp4 04/24 00:08 Order name: Magnesium; Complete Time: 03:58 sp4 04/24 00:08 Order name: NT PRO-BNP; Complete Time: 03:58 sp4 04/24 00:08 Order name: PT-INR; Complete Time: 05:12 sp4 04/24 00:08 Order name: Troponin HS; Complete Time: 03:58 sp4 04/24 02:58 Order name: T4 Free; Complete Time: 03:58 EDMS 04/24 02:58 Order name: Thyroid Stimulating Hormone; Complete Time: 03:58 EDMS 04/24 05:02 Order name: BMP; Complete Time: 06:46 sp4 04/24 08:12 Order name: Glucose, Ancillary Testing EDMS 04/24 08:47 Order name: Basic Metabolic Panel EDMS 04/24 08:47 Order name: Basic Metabolic Panel EDMS 04/24 08:47 Order name: Basic Metabolic Panel EDMS 04/24 08:47 Order name: Basic Metabolic Panel EDMS 04/24 08:47 Order name: Basic Metabolic Panel EDMS 04/24 08:47 Order name: Basic Metabolic Panel EDMS 04/24 08:47 Order name: Basic Metabolic Panel EDMS 04/24 08:47 Order name: Basic Metabolic Panel EDMS 04/24 08:47 Order name: Magnesium EDMS 04/24 08:47 Order name: Magnesium EDMS 04/24 08:47 Order name: Magnesium EDMS 04/24 08:47 Order name: CBC with Automated Diff EDMS 04/24 08:47 Order name: CBC with Automated Diff EDMS 03/06 08:47 Order name: CBC with Automated Diff EDMS 03/ 08:47 Order name: CBC with Automated Diff EDMS 03/ 08:47 Order name: CBC with Automated Diff EDMS 03/ 08:47 Order name: CBC with Automated Diff EDMS 03/ 08:47 Order name: CBC with Automated Diff EDMS 03/ 08:47 Order name: CBC with Automated Diff EDMS 03/ 08:47 Order name: Urinalysis w/ reflexes EDMS 03/ 08:48 Order name: Magnesium EDMS 03/ 08:48 Order name: Magnesium EDMS 03/ 08:48 Order name: Magnesium EDMS 03/ 08:48 Order name: Magnesium EDMS 03/ 08:48 Order name: Magnesium EDMS 03/ 08:48 Order name: Phosphorus EDMS 03/ 08:48 Order name: Phosphorus EDMS 03/ 08:48 Order name: Phosphorus EDMS 03/ 08:48 Order name: Phosphorus EDMS 03/06 08:48 Order name: Phosphorus EDMS 03/06 08:48 Order name: Phosphorus EDMS 03/06 08:48 Order name: Phosphorus EDMS 03/ 08:48 Order name: Phosphorus EDMS 03/ 08:48 Order name: Troponin High Sensitivity EDMS / 08:48 Order name: Troponin High Sensitivity EDMS / 08:48 Order name: Troponin High Sensitivity EDMS / 11:31 Order name: Glucose, Ancillary Testing EDMS 04/24 17:27 Order name: Glucose, Ancillary Testing EDMS 04/24 00:07 Order name: CT Chest Abdomen Pelvis W/O Contrast sp4 04/24 00:08 Order name: CT Head C Spine sp4 04/24 00:08 Order name: XRAY Chest (1 view) sp4 04/24 00:08 Order name: Extrem Venous W Compression [place] US sp4 04/24 04:32 Order name: Chest Single View XRAY sp4 04/24 09:04 Order name: Echo with Doppler EDMS 04/24 09:04 Order name: ERT ORTHOSTATIC V/S EDMS 04/24 00:08 Order name: EKG; Complete Time: 00:09 sp4 04/24 08:47 Order name: CONS Physician Consult EDMS 04/24 00:08 Order name: Cardiac monitoring; Complete Time: 07:13 sp4 04/24 00:08 Order name: EKG - Nurse/Tech; Complete Time: 07:13 sp4 04/24 00:08 Order name: IV Saline Lock; Complete Time: 07:13 sp4 04/24 00:08 Order name: Labs collected and sent; Complete Time: 07:13 sp4 04/24 00:08 Order name: O2 Per Protocol; Complete Time: 07:13 sp4 04/24 00:08 Order name: O2 Sat Monitoring; Complete Time: 07:13 sp4 04/24 04:31 Order name: Central Line Dressing Kit; Complete Time: 07:12 sp4 04/24 04:31 Order name: Central Line Kit; Complete Time: 07:12 sp4 04/24 04:31 Order name: Chlorhexidine prep; Complete Time: 07:12 sp4 04/24 04:31 Order name: Consent for central line completed; Complete Time: 07:12 sp4 04/24 04:31 Order name: Line Caps x3; Complete Time: 07:12 sp4 04/24 04:31 Order name: NS Flushes x3; Complete Time: 07:12 sp4 03 04:31 Order name: Sterile Gloves; Complete Time: 07:12 sp4 04/24 04:31 Order name: Sterile Probe Cover; Complete Time: 07:12 sp4 EC:57 Rate is 89 beats/min. Rhythm is regular, Paced. Clinical impression: No evidence of sp4 ischemia. Interpreted by me. Reviewed by me. Administered Medications: 05:31 Drug: Furosemide IVP 40 mg IVP once; give over 2 minutes Route: IVP; Site: right ay jugular; 07:16 Follow up: Response: No adverse reaction ay Point of Care Testing: Blood Glucose: 08:00 Blood Glucose: 253 mg/dL; aa5 Ranges: Critical Glucose Levels:Adult <50 mg/dl or >400 mg/dl <40 mg/dl or >180 mg/dl Disposition Summary: 04/24/24 05:11 Hospitalization Ordered Notes: Hospitalization Status: Inpatient Admission sp4 Condition: Stable sp4 Problem: new sp4 Symptoms: have improved sp4 Bed/Room Type: Standard sp4 Provider: Mina Peralta(04/24/24 07:08) sp4 Location: Telemetry/MedSurg (Inpatient)(04/24/24 16:30) bc6 Room Assignment: 223(04/24/24 16:54) aa5 Diagnosis - 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 Discharge Instructions: - Discharge Summary Sheet ay Forms: - Medication Reconciliation Form sp4 - Leadership Thank You Letter sp4 - SBAR form ay NIH Stroke Scale - NIH Stroke Score Date: 04/24/2024 Time: 05:04 Total Score = 0 10. Dysarthria (speech clarity - read or repeat words) - 0(Normal) 11. Extinction and Inattention (visual/tactile/auditory/spatial/personal) - 0(No abnormality) 1a. Level of Consciousness (LOC) - 0(Alert) 1b. Level of Consciousness (LOC) (Month \T\ Age) - 0(Both) 1c. LOC Commands (Open \T\ Closes Eyes/Customer Relations Advisor) - 0(Both) 2. Best Gaze (Lateral Gaze Paresis) - 0(Normal) 3. Visual Field Loss - 0(No visual loss) 4. Facial Palsy - 0(Normal) 5a. Left Arm: Motor (10-second hold) - 0(No drift) 5b. Right Arm: Motor (10-second hold) - 0(No drift) 6a. Left Leg: Motor (5-second hold - always test supine) - 0(No drift) 6b. Right Leg: Motor (5-second hold - always test supine) - 0(No drift) 7. Limb Ataxia (finger/nose \T\ heel/cunningham - test with eyes open) - 0(Absent) 8. Sensory Loss (pinprick arms/legs/face) - 0(Normal) 9. Best Language: Aphasia (description/naming/reading) - 0(No aphasia) Initials: sp4 Signatures: Dispatcher [employer] Joan Connolly, RN RN aa5 Lizbet Max RN RN vc1 Josephine Paulson rv1 Sonya Leong bc6 Jacky Casper MD MD sp4 Tee Guo RN RN ay Corrections: (The following items were deleted from the chart) 02:58 00:10 THYROID STIMULAT HORMONE+C.LAB.BRZ ordered. EDMS EDMS 02:58 00:10 T4 FREE+C.LAB.BRZ ordered. EDMS EDMS 05:34 05:11 Telemetry/MedSurg (Inpatient) sp4 rv1 05:34 05:11 sp4 rv1 07:08 05:11 Dimitri, Madifar sp4 sp4 16:30 05:34 BR ER HOLD rv1 bc6 16:30 05:34 ERHOLD- rv1 bc6 16:54 16:30 202 bc6 aa5
[2024-04-24] MEDS ORDERED: FUROSEMIDE 40 MG/4 ML VIAL ONE ×2 (05:28→11:54)
--- NOTE | 2024-04-24 05:45 | RAD REPORT ---
EXAM: XR Chest, 1 View CLINICAL HISTORY: The patient is 79 years old and is Female; CHEST PAIN TECHNIQUE: Frontal view of the chest. COMPARISON: No relevant prior studies available. FINDINGS: Lungs: Prominent interstitial markings. Peribronchial thickening. No consolidation. Pleural space: Unremarkable. No pneumothorax. Heart: Unremarkable. Mediastinum: Unremarkable. Normal mediastinal contour. Bones/joints: No acute findings. Tubes, lines and devices: Left-sided pacemaker/AICD. IMPRESSION: Prominent interstitial markings. Peribronchial thickening. No consolidation. Electronically signed by: Santiago Mancia MD 04/24/2024 01:21 AM [facility] 8 Due to temporary technical issues with the PACS/[employer] reporting system, reports are being eddie d by the in-house radiologist without review as a courtesy to ensure prompt reporting the interpreting radiologist is fully responsible for the content of the report. Transcribed Date/Time: 04/24/2024 5:45 AM
[2024-04-24 06:01] LABS: Anion Gap 11.7 mEq/L (5.0-15.0); Potassium 4.7 mEq/L (3.5-5.1)
--- NOTE | 2024-04-24 06:23 | RAD REPORT ---
EXAM: XR Chest, 1 View CLINICAL HISTORY: The patient is 79 years old and is Female; Central line placement TECHNIQUE: Single view of the chest. COMPARISON: April 24, 2024 12:33 AM. FINDINGS: Lungs: Mild interstitial edema. Pleural space: No pneumothorax. Heart: Cardiomegaly. Left-sided ICD/pacer. Mediastinum: Unremarkable. Bones/joints: The bones and joints are unchanged as visualized. Tubes, lines and devices: Right IJ line is at the SVC/RA junction. Upper abdomen: No free air in the visualized upper abdomen. IMPRESSION: 1. Right IJ line is at the SVC/RA junction. No pneumothorax visualized. 2. Mild interstitial edema. Electronically signed by: Harper Mckeon MD 04/24/2024 06:15 AM [facility] V2 Due to temporary technical issues with the PACS/[employer] reporting system, reports are being eddie d by the in-house radiologist without review as a courtesy to ensure prompt reporting the interpreting radiologist is fully responsible for the content of the report. Transcribed Date/Time: 04/24/2024 6:22 AM
--- NOTE | 2024-04-24 07:37 | P.HP ---
Certification for Inpatient Patient admitted to: Inpatient With expected LOS: >2 Midnights Practitioner: I am a practitioner with admitting privileges, knowledge of patient current condition, hospital course, and medical plan of care. Services: Services provided to patient in accordance with Admission requirements found in Title 42 Section 412.3 of the Code of Federal Regulations Patient History Date of Service: 04/24/24 Reason for admission: Worsening CHF/CKD History of Present Illness: Teena Simpson is a 79 year old female with Pmhx CKD, CHF, HTN, Afib who presents to the ED after a fall at home with bilateral upper/ lower extremity and left rib pain. She reports seeing Dr. Moore and Dr. Shannon for CHF and CKD but refuses dialysis. On evaluation, she is fatigued, oriented, and denies fever/chills. Laboratory evaluation significant for H&H 11/34, sodium 130, potassium 4.7, BUN/creatinine 95/2.62, GFR 18, serum glucose 252, BNP 26,798. Chest xray reports "Prominent interstitial markings. Peribronchial thickening. No consolidation." CT CAP report " 1. No evidence of solid organ injury on this noncontrasted CT of the chest, abdomen, and pelvis. 2. Acute left posterior ninth and 10th rib fractures. 3. Chronic findings as detailed above." Bilateral venous ultrasound reports "Right and Left common femoral, greater saphenous, femoral, deep (profunda) femoral, popliteal, posterior tibial veins unremarkable without evidence of clot. IMPRESSION: No sonographic evidence of right or left lower extremity DVT." CT C-spine and head reports "1. No acute intracranial findings. 2. Straightening of the normal cervical curvature is present. Findings may be secondary to patient position versus muscle spasm. No acute fracture." Teena will be admitted to hospitalist service for further evaluation and treatment of worsening CHF and CKD. Allergies amoxicillin [From Augmentin] Adverse Reaction (Verified 11/09/22 14:41) Nausea/Vomiting ciprofloxacin Adverse Reaction (Verified 11/09/22 14:41) Nausea/Vomiting clavulanic acid [From Augmentin] Adverse Reaction (Verified 11/09/22 14:41) Nausea/Vomiting levetiracetam [From Keppra] Adverse Reaction (Verified 11/09/22 14:41) fast heart rate oxcarbazepine Adverse Reaction (Verified 11/09/22 14:41) fast heart beat Home Medications: Atorvastatin Calcium [Lipitor] 40 mg PO BEDTIME 08/07/21 Insulin NPH Human Isophane [Novolin N] 25 unit SQ SEECOM 06/30/23 Apixaban [Eliquis *] 2.5 mg PO BID 07/26/23 Clopidogrel Bisulfate [Plavix] 75 mg PO DAILY 07/26/23 Furosemide [Lasix] 40 mg PO BID 30 Days #60 tab 07/30/23 Midodrine HCl [Proamatine*] 5 mg PO TID tab 07/30/23 carvediloL [Coreg*] 3.125 mg PO BID 6AM 6PM 30 Days #60 tab 07/30/23 PHENYTOIN ER Cap [Dilantin ER Cap*] 300 mg PO SEECOM 12/25/23 Albuterol Neb [Proventil 0.083% Neb Soln] 1 vial NEB PRN PRN 04/24/24 Amiodarone HCl [Cordarone*] 100 mg PO DAILY 04/24/24 Ipratropium [place] 1 vial NEB PRN PRN 04/24/24 - Past Medical/Surgical History Diabetic: Yes -: Seizures -: Atrial fibrillation on chronic anticoagulation -: Diabetes mellitus type 2insulin-dependent -: Hypertension -: Hyperlipidemia -: Chronic systolic congestive heart failure -: CAD -: CKD 4 -: neuropathy -: Systolic CHF- EF 20-25% -: defibrilator -: PNA -: defib/pacemaker placement x2 -: exploratory lap -: appendectomy -: Hemorrhoidectomy -: cyst removal of arms and feet Psychosocial/ Personal History: Patient lives at home with family - Family History Father -: Hypertension, Lung disease Notes: Father passed from pneumonia Mother -: Heart disease, Hypertension, Diabetes Sister -: Diabetes Brother -: Diabetes, Kidney disease - Social History Smoking Status: Never smoker Alcohol use: No CD- Drugs: No Caffeine use: Yes Review of Systems Other: Per HPI Physical Examination - Physical Exam General: In no apparent distress, Oriented x3, Other (fatigue) HEENT: Atraumatic, Normocephalic, PERRLA Neck: Supple Respiratory: Clear to auscultation bilaterally, Normal air movement Cardiovascular: Regular rate/rhythm, Normal S1 S2, Edema Capillary refill: <2 Seconds Gastrointestinal: Soft and benign Musculoskeletal: No clubbing Integumentary: No rashes Neurological: Normal speech, Normal tone - Studies Laboratory Data (last 24 hrs) 04/24/24 04/24/24 04/24/24 05:15 04:23 02:30 WBC 7.10 Hgb 11.9 L Hct 34.7 L Plt Count 176 PT 14.9 H INR 1.32 Sodium 130 L Potassium 4.7 BUN 95 H Creatinine 2.62 H Glucose 252 H Magnesium Total Bilirubin AST ALT Alkaline Phosphatase 04/24/24 02:30 WBC Hgb Hct Plt Count PT INR Sodium 131 L Potassium 5.3 H BUN 92 H Creatinine 2.75 H Glucose 240 H Magnesium 2.6 H Total Bilirubin 0.5 AST 58 H ALT 54 Alkaline Phosphatase 174 H Assessment and Plan - Plan Assessment and Plan Acute hypoxic respiratory failure 2/2 Systolic CHF exacerbation Afib -Oxygen protocol -Lasix BID -ECHO ordered -Cardiology consulted -Continue home medications -strict I and O -Daily weight Debilitation/frequent falls Seizures -dilantin level -physical therapy Fluid volume overload 2/2 CKD stage IV Uremic 2/2 CKD hyponatremia -BNP 26,798, BUN/creatinine 95/2.62, GFR 18, Na 130 -Sees Dr. Shannon -Reports refusal of dialysis Acute left posterior ninth and 10th rib fractures -pain control -incentive spirometry Hyperglycemia -serum glucose 252 -Accucheck with SSI -A1C ordered HTN/HLD CAD -continue home medications as appropriate DVT ppx heparin Full code LOS 2-3 days Discharge Plan: Home Plan to discharge in: 72 Hours - Advance Directives Does patient have a Living Will: No Does patient have a Durable POA for Healthcare: No
[2024-04-24] MEDS ORDERED: D50W 25 GM/50 ML SYRINGE IV PRN ×2 (08:40→18:44)
[2024-04-24] MEDS ORDERED: GLUCAGON 1 MG/VIAL IV PRN (08:40)
[2024-04-24] MEDS ORDERED: ACETAMINOPHEN 325 MG TABLET PO PRN (08:40)
--- NOTE | 2024-04-24 11:21 | CON ---
Date of Consultation: 04/24/2024 Reason For Consultation: Elevated BUN and creatinine, fluid management. History Of Present Illness: This is a pleasant 79-year-old female, well known to me from previous ad mission with significant past medical history of diabetes, hypertension, chronic kidney disease stage 4 advanced, CAD complicated with congestive heart failure with ejection fraction of 30%, diabetes co mplicated with neuropathy, nephropathy, hyperlipidemia, seizure, atrial fibrillation, the patient cam e to the hospital with recurrent fall. The patient found to have elevation in BUN, creatinine, has r ib fracture. For that reason, we have been consulted, the patient denied taking any nonsteroidal. T he patient is still urinating. The patient refused dialysis before. The patient is still complainin g from orthopnea. Past Medical History: Includes: 1. Hypertension. 2. Hyperlipidemia. 3. Diabetes, complicated with neuropathy and nephropathy. 4. CAD, complicated with congestive heart failure with ejection fraction of 30%. 5. Chronic kidney disease, baseline creatinine of back in December 2023, 2, and GFR of 25. Past Surgical History: Includes: 1. Laparotomy. 2. ICD. 3. Appendectomy. 4. Hemorrhoidectomy. Family History: Positive for CAD, chronic kidney disease, diabetes. Social History: Denied smoking. Denied drinking. Denied drugs abuse. Review of Systems: Head and Neck: No red eye. No ear pain. GI: No nausea, no vomiting. Has decreased intake. ENTERTAINMENT & MEDIA CORRESPONDENT: No vaginal discharge. Respiratory: Has shortness of breath. Cardiovascular: Has orthopnea. Endocrine: No polydipsia. Skin: No rash. Neuro: Has neuropathy and recurrent fall. Musculoskeletal: Generalized fatigue, chest pain. Physical Examination: General: When I saw the patient, the patient lying in bed, slightly shortness of breath. Vital Signs: Blood pressure of 104/67, pulse of 89, afebrile. Chest: Crackles bilateral. Heart: S1, S2. Systolic murmur. Abdomen: Soft, nontender. Extremities: Trace edema. Neurologic: Alert and oriented. No focality. No tremor. Laboratory Data: Sodium 130, potassium 4.7, bicarb 24, BUN 95, creatinine 2.6, GFR of 18, calcium 8. 6. WBC 7.1, hemoglobin 11.9. Chest x-ray: Cardiomegaly with congestion. Assessment And Plan: 1. Acute kidney injury on advanced chronic kidney disease, nonoliguric, over volume, marginal hyperka lemia. No acidosis. I had long discussion with the patient if kidney function decline, she may need renal replacement therapy, even though I do not see any emergent need for any renal replacement ther apy for the time being. The patient is going to think about it. I am going to go ahead and start th e patient on diuresis to establish better volume control and we will follow up the patient. 2. Hypertension. We will utilize blood pressure for more diuresis. Resume Lasix. 3. Hyponatremia secondary to dilutional, will be corrected with diuresis. 4. Hyperkalemia, resolved. 5. Congestive heart failure with exacerbation. We will optimize the fluid status with diuresis. Thank you Dr. Peralta for allowing us to participate in the care of your patient. Time spent examinin g the patient [id number], reviewing data, lab, and radiology, placing order, discussing the case wi th the patient and family by bedside, discussing the case with the steam gigger including hospitalist and nursing staff more than 75 minutes. IFEANYI Voice ID: [id number] Report ID: [id number]
[2024-04-24] MEDS: INSULIN REGULAR (HUMAN) 100 UNIT/ML SQ SCH (11:30)
[2024-04-24] MEDS ORDERED: HEPARIN 5000 UNIT/ML 1 ML VIAL ONE (11:54)
[2024-04-24] MEDS ORDERED: INSULIN REGULAR (HUMAN) 100 UNIT/ML ONE (11:54)
[2024-04-24] MEDS: HEPARIN 5000 UNIT/ML 1 ML VIAL SQ SCH (12:00)
[2024-04-24] MEDS: FUROSEMIDE 40 MG/4 ML VIAL IV SCH (12:00)
[2024-04-24] MEDS ORDERED: PHENYTOIN ER 100 MG CAP PO SCH (17:00)
--- NOTE | 2024-04-24 17:49 | P.CNS ---
Date of Consult: 04/24/24 Chief Complaint: Worsening CHF/CKD History of Present Illness: Patient with PMH of CAD s/p PCI LM/LAD/LCX bifurcation, chronic combined heart failure, AF, presented with worsening SOB, KELLEY, feeling weak, tired, decrease PO intake, report chest pain that has been going on for some time, mid chest, no radiation, say she has been complaint with her medications. Allergies amoxicillin [From Augmentin] Adverse Reaction (Verified 11/09/22 14:41) Nausea/Vomiting ciprofloxacin Adverse Reaction (Verified 11/09/22 14:41) Nausea/Vomiting clavulanic acid [From Augmentin] Adverse Reaction (Verified 11/09/22 14:41) Nausea/Vomiting levetiracetam [From Keppra] Adverse Reaction (Verified 11/09/22 14:41) fast heart rate oxcarbazepine Adverse Reaction (Verified 11/09/22 14:41) fast heart beat Home medications list reviewed: Yes Home Medications: Atorvastatin Calcium [Lipitor] 40 mg PO BEDTIME 08/07/21 Insulin NPH Human Isophane [Novolin N] 25 unit SQ SEECOM 06/30/23 Apixaban [Eliquis *] 2.5 mg PO BID 07/26/23 Clopidogrel Bisulfate [Plavix] 75 mg PO DAILY 07/26/23 Furosemide [Lasix] 40 mg PO BID 30 Days #60 tab 07/30/23 Midodrine HCl [Proamatine*] 5 mg PO TID tab 07/30/23 carvediloL [Coreg*] 3.125 mg PO BID 6AM 6PM 30 Days #60 tab 07/30/23 PHENYTOIN ER Cap [Dilantin ER Cap*] 300 mg PO SEECOM 12/25/23 Albuterol Neb [Proventil 0.083% Neb Soln] 1 vial NEB PRN PRN 04/24/24 Amiodarone HCl [Cordarone*] 100 mg PO DAILY 04/24/24 Ipratropium [place] 1 vial NEB PRN PRN 04/24/24 - Past Medical/Surgical History Diabetic: Yes -: Seizures -: Atrial fibrillation on chronic anticoagulation -: Diabetes mellitus type 2insulin-dependent -: Hypertension -: Hyperlipidemia -: Chronic systolic congestive heart failure -: CAD -: CKD 4 -: neuropathy -: Systolic CHF- EF 20-25% -: defibrilator -: PNA -: defib/pacemaker placement x2 -: exploratory lap -: appendectomy -: Hemorrhoidectomy -: cyst removal of arms and feet Psychosocial/ Personal History: Patient lives at home with family - Family History Father Medical History: Hypertension, Lung disease Notes: Father passed from pneumonia Mother Medical History: Heart disease, Hypertension, Diabetes Sister Medical History: Diabetes Brother Medical History: Diabetes, Kidney disease - Social History Smoking Status: Unknown if ever smoked Alcohol use: No CD- Drugs: No Caffeine use: Yes Place of Residence: Home Review of Systems 10-point ROS is otherwise unremarkable Physical Examination Temp Pulse Resp BP Pulse Ox 89 125/68 04/24/24 12:00 04/24/24 12:00 General: Alert, In no apparent distress HEENT: Atraumatic, PERRLA, Mucous membr. moist/pink, EOMI, Sclerae nonicteric Neck: Supple, 2+ carotid pulse no bruit, No LAD, Without JVD or thyroid abnormality Respiratory: Clear to auscultation bilaterally, Normal air movement Cardiovascular: Regular rate/rhythm, Normal S1 S2 Gastrointestinal: Normal bowel sounds, No tenderness Musculoskeletal: No tenderness Integumentary: No rashes Neurological: Normal gait, Normal speech, Normal tone, Normal affect Lymphatics: No axilla or inguinal lymphadenopathy Laboratory Data (last 24 hrs) 04/24/24 04/24/24 04/24/24 05:15 04:23 02:30 WBC 7.10 Hgb 11.9 L Hct 34.7 L Plt Count 176 PT 14.9 H INR 1.32 Sodium 130 L Potassium 4.7 BUN 95 H Creatinine 2.62 H Glucose 252 H Magnesium Total Bilirubin AST ALT Alkaline Phosphatase 04/24/24 02:30 WBC Hgb Hct Plt Count PT INR Sodium 131 L Potassium 5.3 H BUN 92 H Creatinine 2.75 H Glucose 240 H Magnesium 2.6 H Total Bilirubin 0.5 AST 58 H ALT 54 Alkaline Phosphatase 174 H - Problems (1) Acute on chronic systolic heart failure Current Visit: No Status: Acute Plan: agree with Lasix 40 mg IV BID continue to monitor input and output and electrolytes Echo no changes from before with severe reduced LV systolic function (2) Chest pain Onset Date: 08/18/14 Current Visit: No Status: Acute Plan: cardiac enzymes are negative, continue patient Plavix 75 mg daily (3) Atrial fibrillation Current Visit: No Status: Chronic Plan: resume patient amiodarone 100 mg daily resume coreg 3.125 mg po BID resume patient eliquis 2.5 mg po BID Qualifiers:
[2024-04-24] MEDS ORDERED: GLUCAGON 1 MG/VIAL IM PRN (18:44)
[2024-04-24] MEDS ORDERED: INSULIN NPH (HUMAN) 100 UNITS/ML SQ SCH (19:00)
[2024-04-24] MEDS: ATORVASTATIN 40 MG TAB PO SCH (20:25)
[2024-04-24] MEDS: APIXABAN 2.5 MG TABLET PO SCH (20:25)
[2024-04-25] MEDS: carvediloL 3.125 MG TAB PO SCH (05:28)
[2024-04-25 06:24] LABS: Absolute Monocytes 0.7 K/uL (0.1-1.3); Basophils % 0.2 % (0-1.3); Eosinophils % 0.1 % (0-4.4); Hematocrit 31.3 % (36.0-45.0); Hemoglobin 10.7 g/dL (12.0-15.0); Lymphocytes % 12.6 % (15.3-44.8); MCH 34.6 pg (27.0-35.0); MCHC 34.2 g/dL (32.0-36.0); MCV 101.1 fL (80-100); MPV 10.5 fL (7.6-11.3); Monocytes % 9.5 % (3.3-12.3); Neutrophils % 77.6 % (41.7-73.7); Nucleated Red Blood Cells % 0.2 % (0-0); Platelets 173 thou/uL (152-406); Red Cell Distribution Width 14.1 % (12.1-15.2)
[2024-04-25 06:33] LABS: Albumin 3.1 g/dL (3.4-5.0); Magnesium 2.4 mg/dL (1.6-2.4); Phosphorus 4.9 mg/dL (2.5-4.9)
[2024-04-25 06:39] LABS: Phenytoin (Dilantin) Level 32.5 mcg/mL (10.0-20.0); Troponin High Sensitivity 95.6 pg/mL (<58.9)
--- NOTE | 2024-04-25 06:45 | ECHO ---
HEIGHT: 5 ft 0 in WEIGHT: 140 lb 0 oz DATE OF STUDY: 04/24/[address]: Nieves Sellers NP 2-DIMENSIONAL: YES M.MODE: YES DOPPLER: YES COLOR FLOW: YES TDS: PORTABLE: YES DEFINITY: BUBBLE STUDY: DIAGNOSIS: CONGESTIVE HEART FAILURE, EDEMA CARDIAC HISTORY: CATHERIZATION: NO SURGERY: NO PROSTHETIC VALVE: NO PACEMAKER: YES MEASUREMENTS (cm) DIASTOLIC (NORMALS) SYSTOLIC (NORMALS) IVSd 0.9 (0.6-1.2) LA Diam 3.4 (1.9-4.0) LVEF 15-20% LVIDd 5.4 (3.5-5.7) LVIDs 4.8 (2.0-3.5) %FS 12% LVPWd 1.0 (0.6-1.2) Ao Diam 2.7 (2.0-3.7) 2 DIMENSIONAL ASSESSMENT: RIGHT ATRIUM: NORMAL LEFT ATRIUM: NORMAL RIGHT VENTRICLE: NORMAL LEFT VENTRICLE: SEVERELY DILATED TRICUSPID VALVE: MILD TO MODERATE TRICUSPID REGURGITATION MITRAL VALVE: MILD TO MODERATE MITRAL REGURGITATION PULMONIC VALVE: NORMAL AORTIC VALVE: NORMAL PERICARDIAL EFFUSION: NONE AORTIC ROOT: NORMAL LEFT VENTRICULAR WALL MOTION: SEVERE GLOBAL HYPOKINESIS DOPPLER/COLOR FLOW: GRADE III DIASTOLIC DYSFUNCTION COMMENTS: 1. SEVERELY DILATED LEFT VENTRICULAR CAVITY 2. SEVERELY REDUCED LEFT VENTRICULAR SYSTOLIC FUNCTION, EJECTION FRACTION 15-20%, SEVERE GLOBAL HYPOKINESIS 3. GRADE III DIASTOLIC DYSFUNCTION 4. MILD TO MODERATE MITRAL REGURGITATION 5. MILD TO MODERATE TRICUSPID REGURGITATION 6. NORMAL FILLING PRESSURE (RIGHT ATRIAL PRESSURE 5-10 mmHg) TECHNOLOGIST: CELSETE GOMEZ
[2024-04-25] MEDS: AMIODARONE HCL 200 MG TAB PO SCH (09:00)
[2024-04-25] MEDS: CLOPIDOGREL 75 MG TABLET PO SCH (09:00)
--- NOTE | 2024-04-25 18:45 | P.PN ---
Date of Service: 04/25/24 Subjective Teena is lethargic, will arouse to touch but quickly falls asleep conversation with the family concerning the need for dailysis Patient continues to refuse, will discuss hospice ROS 10 point ROS as noted above, otherwise negative Physical Exam General: Sleeping, (fatigue), NAD HEENT: Atraumatic, Normocephalic, PERRLA Neck: Supple Respiratory: Clear BBS, nonlabored breathing, Normal air movement, on 2 LNC Cardiovascular: Regular rate/rhythm, Normal S1 S2, Edema Capillary refill: <2 Seconds Gastrointestinal: Soft and benign Musculoskeletal: No clubbing Integumentary: No rashes Neurological: Normal speech, Normal tone Vitals Reviewed Problem list Acute hypoxic respiratory failure 2/2 Systolic CHF exacerbation Afib Debilitation/frequent falls Seizures Fluid volume overload 2/2 CKD stage IV Uremic 2/2 CKD hyponatremia Acute left posterior ninth and 10th rib fractures Hyperglycemia HTN/HLD CAD Assessment and Plan Acute hypoxic respiratory failure 2/2 Systolic CHF exacerbation Afib -Oxygen protocol -Lasix BID -ECHO ordered -Cardiology consulted -Continue home medications -strict I and O -Daily weight Debilitation/frequent falls Seizures -dilantin level -physical therapy Fluid volume overload 2/2 CKD stage IV Uremic 2/2 CKD hyponatremia -BNP 26,798, BUN/creatinine 95/2.62, GFR 18, Na 130 -Sees Dr. Shannon -Reports refusal of dialysis Acute left posterior ninth and 10th rib fractures -pain control -incentive spirometry Hyperglycemia -serum glucose 252 -Accucheck with SSI -A1C 7.9 HTN/HLD CAD -continue home medications as appropriate Interval hospital course 04/25/24 -Discussed need for dialysis -continues to be uremic -Nephrology following -will discuss hospice DVT ppx heparin Full code LOS 2-3 days Discharge Plan: Home Plan to discharge in: 72 Hours
--- NOTE | 2024-04-25 22:57 | PN ---
Date of Progress Note: 04/25/2024 Chief Complaint: Abnormal renal function test. Subjective: The patient has history of chronic kidney disease stage 4, diabetes mellitus with renal manifestation and chronic congestive heart failure with reduced ejection fraction, ejection fraction of 30%, diabetes mellitus complicated by neuropathy, nephropathy, hyperlipidemia, seizure, atrial fibrillation. The patient is admitted to the hospital because of shortness of breath. The patient received dialysis before. The patient was complaining of orthopnea, denies fever, chills, cough, hemoptysis, shortness of breath with activity and at rest. Past Medical History: Hypertension, hyperlipidemia, diabetes mellitus complicated with neuropathy and nephropathy, coronary artery disease with congestive heart failure, ejection fraction 30%, chronic kidney disease, baseline creatinine level in December 2023 was 2 and GFR of 25. Review of Systems: Constitutional: Denies fever or chills. Eyes: Denies new vision changes. Ears, Nose, Mouth and Throat: Denies cough , no wheezing, had shortness of breath. Physical Examination: General: The patient is awake, alert, follows commands. Eyes: Anicteric sclerae. EOMI. Ears, Nose, Mouth, and Throat: no earache, no sore throat. Extremities: Edema present in both legs. Impression: 1. Acute on chronic kidney injury, cardiorenal syndrome. Continue diuretics to treat cardiorenal syndrome. Continue mild hydration by mouth as needed. Avoid nephrotoxic medications. HTN, monitor blood pressure, adjust medications. Congestive heart failure, systolic dysfuction, continue low Sodium diet , adjust diuretic as needed, cardiology work-up is pending. Diabetic nephropathy, monitor urine protein creatinine, ACEI on hold due to FELICIA. Hyperlipidemia, monitor CK level , rule out rhabdomyolysis. EB/MODL Voice ID: [id number] Report ID: [id number] MELISSA
[2024-04-26] MEDS: HYDROCODONE/APAP 7.5/325 MG TAB PO PRN (05:43)
[2024-04-26 06:03] LABS: Absolute Monocytes 0.7 K/uL (0.1-1.3); Absolute Neutrophil 5.5 K/uL (1.8-8.0); Basophils % 0.5 % (0-1.3); Eosinophils % 0.6 % (0-4.4); Hematocrit 30.3 % (36.0-45.0); Hemoglobin 10.5 g/dL (12.0-15.0); Lymphocytes % 13.4 % (15.3-44.8); MCH 34.9 pg (27.0-35.0); MCHC 34.8 g/dL (32.0-36.0); MCV 100.5 fL (80-100); MPV 10.8 fL (7.6-11.3); Monocytes % 10.1 % (3.3-12.3); Neutrophils % 75.4 % (41.7-73.7); Nucleated Red Blood Cells % 0.1 % (0-0); Platelets 149 thou/uL (152-406); RBC Red Blood Cell Count 3.01 M/uL (3.86-4.86); Red Cell Distribution Width 14.4 % (12.1-15.2)
[2024-04-26 06:20] LABS: Albumin 2.9 g/dL (3.4-5.0); Anion Gap 14.4 mEq/L (5.0-15.0); Magnesium 2.4 mg/dL (1.6-2.4); Phosphorus 4.9 mg/dL (2.5-4.9); Potassium 3.4 mEq/L (3.5-5.1)
--- NOTE | 2024-04-26 10:27 | PN ---
Date of Progress Note: 04/26/2024 Subjective: The patient was admitted to the hospital with acute kidney injury secondary to cardiorenal progression of her disease, failure to thrive. The patient has still poor intake. The patient was started on diuresis. Kidney function stabilized, good urine output, but the patient has still poor intake. Physical Examination: Vital Signs: Blood pressure 100/55, pulse of 88. Chest: Clear to auscultation. Heart: S1, S2. Systolic murmur. Abdomen: Soft, nontender. Extremities: Trace edema. Neurologic: Alert. No focality. No tremor. Laboratory Data: WBC 7.3, hemoglobin 10.5. Sodium 136, potassium 3.4, bicarb 23, BUN 100, creatinine 2.5, GFR of 19, calcium 8.5, phosphorus 4.9, magnesium 2.4, albumin 2.9, corrected calcium is 9.3. Current Medications: The patient is on include: 1. Eliquis. 2. Plavix. 3. Amiodarone. 4. Carvedilol. 5. Lasix 40 b.i.d. 6. Insulin. Assessment And Plan: 1. Acute kidney injury on advanced chronic kidney disease, nonoliguric, but uremic symptoms secondary to cardiorenal, diabetes nephropathy, over volume. I am going to continue current diuresis. We will continue to monitor the patient. 2. Failure to thrive, poor intake. I am going to start the patient on low dose of Megace and we will follow up the response for the patient. 3. Hypokalemia, we will supplement. 4. CHF exacerbation with cardiorenal syndrome. We will optimize diuresis for the patient and we will follow up. time spent examining the patient [id number] reviewing data lab and the radiology placing order discussing the case with the patient discussing the case with the steam turbine operator including hospitalist and nursing staff more than 55-minute MARCELLA/CAMERON Voice ID: [id number] Report ID: [id number] MELISSA
[2024-04-26] MEDS: POTASSIUM CL 40 MEQ in NA CHLORIDE 0.9% 500 ML IV SCH (13:19)
--- NOTE | 2024-04-26 17:04 | P.PN ---
Date of Service: 04/26/24 Subjective Awake, not feeling well Family reports fatigue no new complaints ROS 10 point ROS as noted above, otherwise negative Physical Exam General: Awake, NAD Neck: Supple Respiratory: Clear BBS, Normal air movement, on 2 LNC Cardiovascular: NSR, Normal S1 S2, Edema Capillary refill: <2 Seconds Gastrointestinal: Soft and benign Musculoskeletal: No clubbing Integumentary: No rashes Neurological: Normal speech, Normal tone Vitals Reviewed Problem list Acute hypoxic respiratory failure 2/2 Systolic CHF exacerbation Afib Debilitation/frequent falls Seizures Fluid volume overload 2/2 CKD stage IV Uremic 2/2 Cardiorenal syndrome hyponatremia Acute left posterior ninth and 10th rib fractures Hyperglycemia HTN/HLD CAD Assessment and Plan Acute hypoxic respiratory failure 2/2 Systolic CHF exacerbation Afib -Oxygen protocol -Lasix BID -ECHO reduced EF 15 to 20%, severely dilated left ventricle cavity, grade 3 diastolic dysfunction, mild to moderate mitral and tricuspid regurgitation -Cardiology consulted -Continue home medications -strict I and O -Daily weight Debilitation/frequent falls Seizures -dilantin level -physical therapy Fluid volume overload 2/2 CKD stage IV Uremic 2/2 Cardiorenal syndrome hyponatremia -BNP 26,798, BUN/creatinine 95/2.62, GFR 18, Na 130 -Sees Dr. Shannon -Reports refusal of dialysis Acute left posterior ninth and 10th rib fractures -pain control -incentive spirometry Hyperglycemia -serum glucose 252 -Accucheck with SSI -A1C 7.9 HTN/HLD CAD -continue home medications as appropriate Interval hospital course 04/25/24 -Discussed need for dialysis -continues to be uremic -Nephrology following -will discuss hospice 04/26/24 -uremia continues -UOP significantly decreased -Nephrology plans to continue diuresis DVT ppx heparin Full code LOS 2-3 days Discharge Plan: Home Plan to discharge in: 72 Hours
[2024-04-26] MEDS: MEGESTROL 40 MG TAB PO SCH (21:22)
[2024-04-27 06:12] LABS: Absolute Eosinophils 0.1 K/uL (0-0.5); Absolute Lymphocytes (CBC) 0.9 K/uL (0.7-4.9); Absolute Monocytes 0.7 K/uL (0.1-1.3); Absolute Neutrophil 5.9 K/uL (1.8-8.0); Basophils % 0.4 % (0-1.3); Eosinophils % 1.6 % (0-4.4); Hematocrit 30.4 % (36.0-45.0); Hemoglobin 10.5 g/dL (12.0-15.0); Lymphocytes % 11.2 % (15.3-44.8); MCH 34.6 pg (27.0-35.0); MCHC 34.4 g/dL (32.0-36.0); MCV 100.4 fL (80-100); MPV 10.6 fL (7.6-11.3); Monocytes % 9.1 % (3.3-12.3); Neutrophils % 77.7 % (41.7-73.7); Nucleated Red Blood Cells % 0.1 % (0-0); Platelets 165 thou/uL (152-406); RBC Red Blood Cell Count 3.03 M/uL (3.86-4.86); Red Cell Distribution Width 14.2 % (12.1-15.2)
[2024-04-27 06:30] LABS: Albumin 2.8 g/dL (3.4-5.0); Anion Gap 13.1 mEq/L (5.0-15.0); Magnesium 2.4 mg/dL (1.6-2.4); Phosphorus 3.8 mg/dL (2.5-4.9); Potassium 4.1 mEq/L (3.5-5.1)
[2024-04-27] MEDS: AMIODARONE HCL 150 MG in D5W 100 ML IV STA (07:00)
[2024-04-27] MEDS: AMIODARONE IN DEXTROSE,ISO-OSM 360 MG/200 ML BAG IV ONE (07:12)
[2024-04-27] MEDS: HEPARIN/D5W 25,000 UNIT/500 ML BAG IV SCH (09:00)
[2024-04-27] MEDS: FUROSEMIDE 40 MG/4 ML VIAL IV SCH (11:29)
[2024-04-27 11:38] VITALS: BMI 27.8
[2024-04-27] MEDS: AMIODARONE HCL 900 MG in Dextrose 5%-Water 482 ML IV SCH (12:38)
[2024-04-27] MEDS: MIDODRINE HCL 5 MG TABLET PO SCH (12:39)
[2024-04-27] MEDS: FUROSEMIDE 40 MG in NA CHLORIDE 0.9% 50 ML IV SCH (12:39)
--- NOTE | 2024-04-27 13:02 | RAD REPORT ---
Procedure: Chest Single View HISTORY: Cough COMPARISON: April 24, 2024 FINDINGS: Mild interstitial lung opacities bilaterally. No significant pleural effusion noted. The heart is moderately enlarged. Pacemaker/defibrillator and central venous line in place. IMPRESSION: No change in mild bilateral interstitial lung opacities which may indicate mild interstitial..
--- NOTE | 2024-04-27 13:03 | PN ---
Date of Progress Note: 04/27/2024 Subjective: The patient was admitted to the hospital with acute kidney injury on chronic kidney disease. The patient yesterday has AFib with block. The patient was started on amiodarone. The patient had been oliguric. Physical Examination: Vital Signs: Blood pressure on the lower side of 100/56, pulse of 90, regular. Chest: Crackles, bilateral. Heart: S1, S2. Systolic murmur. Abdomen: Soft, nontender. Extremities: Trace edema. Neurologic: Alert. No focality. Laboratory Data: For the patient, hemoglobin 10.5, sodium 137, potassium 4.1, bicarb 25, BUN 113, creatinine 2.3, GFR 20. Calcium 8.4, phosphorus 3.8, magnesium 2.4, albumin 2.8, hemoglobin 10.5. Current Medications: The patient on, it includes: 1. tylenol 2. Plavix. 3. Heparin. 4. Amiodarone. 5. Carvedilol 3.125 b.i.d. Assessment And Plan: 1. Acute kidney injury on advanced chronic kidney disease, oliguric, overvolume. I am going to go ahead and start the patient on midodrine and we will start Lasix in low infusion, try to convert the patient to nonoliguric. I had long discussion with the patient given the uremic symptoms and oliguric status that the patient needing renal replacement therapy. Explained risks, benefits, alternative, and other modality of dialysis. The patient still refused even with the risk of . We will monitor the patient. 2. Hypertension, currently blood pressure on the lower side. We will utilize the blood pressure for the rate control and the diuresis. 3. Anemia of chronic kidney disease, stable. 4. Congestive heart failure with exacerbation. We will try to establish better volume control. 5. Atrial fibrillation, as by Cardiology. time spent examining the patient [id number] reviewing data lab and the radiology placing order discussing the case with the patient discussing the case with the team supervisor including hospitalist and nursing staff more than 55-minute MARCELLA/CAMERON Voice ID: [id number] Report ID: [id number] MELISSA
[2024-04-27] MEDS ORDERED: MIDODRINE HCL 5 MG TABLET PO SCH (14:00)
--- NOTE | 2024-04-27 15:45 | P.PN ---
Date of Service: 04/27/24 Subjective Awake, denies chest pain Wide complex Vtach per telemetry report moved to ICU Continues to refuse dialysis ROS 10 point ROS as noted above, otherwise negative Physical Exam General: Awake, NAD Neck: Supple Respiratory: Clear BBS, nonlabored breathing, on RA Cardiovascular: NSR, Normal S1 S2, Edema Capillary refill: <2 Seconds Gastrointestinal: Soft and benign on palpation Musculoskeletal: No clubbing Integumentary: No rashes Neurological: Normal speech, Normal tone Vitals Reviewed Problem list Acute hypoxic respiratory failure 2/2 Systolic CHF exacerbation Afib Debilitation/frequent falls Seizures Fluid volume overload 2/2 CKD stage IV Uremic 2/2 Cardiorenal syndrome hyponatremia Acute left posterior ninth and 10th rib fractures Hyperglycemia HTN/HLD CAD Assessment and Plan Acute hypoxic respiratory failure 2/2 Systolic CHF exacerbation Afib NSTEMI -Oxygen protocol -Lasix BID -ECHO reduced EF 15 to 20%, severely dilated left ventricle cavity, grade 3 diastolic dysfunction, mild to moderate mitral and tricuspid regurgitation -Cardiology consulted -Continue home medications -strict I and O -Daily weight -Trend troponin, started heparin gtt Debilitation/frequent falls Seizures -dilantin level -physical therapy Fluid volume overload 2/2 CKD stage IV Uremic 2/2 Cardiorenal syndrome hyponatremia -BNP 26,798, BUN/creatinine 95/2.62, GFR 18, Na 130 -Sees Dr. Shannon -Reports refusal of dialysis Acute left posterior ninth and 10th rib fractures -pain control -incentive spirometry Hyperglycemia -serum glucose 252 -Accucheck with SSI -A1C 7.9 HTN/HLD CAD -continue home medications as appropriate Interval hospital course 04/25/24 -Discussed need for dialysis -continues to be uremic -Nephrology following -will discuss hospice 04/26/24 -uremia continues -UOP significantly decreased -Nephrology plans to continue diuresis 04/27/24 - moved to ICU for irregular heart rhythm -amiodarone gtt started -reached out to cardiology -NSTEMI, started heparin gtt DVT ppx heparin Full code LOS 2-3 days Discharge Plan: Home Plan to discharge in: 72 Hours <Nieves Sellers - Last Filed: 04/27/24 15:39> Patient seen and examined, plan of care discussed with Ms. Sellers. Patient had an episode of rapid heart rate, monitor car operator showed wide-complex tachycardia. EKG demonstrated atrial flutter with aberrant conduction. Also noted borderline low blood pressure Patient moved to the ICU and started on amiodarone drip Heparin drip. Patient has been refusing hemodialysis initiation. Her Encephalopathy likely related to uremia. Uremia continue to worsen. Case discussed with nephrology Dr. Colvin. Dr. Colvin is planning in-depth discussion of dialysis options for informed decision regarding dialysis initiation. Continue Lasix for volume overload. <heaven kruger - Last Filed: 04/27/24 18:05>
[2024-04-28 06:04] LABS: Absolute Eosinophils 0.3 K/uL (0-0.5); Absolute Lymphocytes (CBC) 1.2 K/uL (0.7-4.9); Absolute Monocytes 0.5 K/uL (0.1-1.3); Absolute Neutrophil 4.9 K/uL (1.8-8.0); Basophils % 0.4 % (0-1.3); Eosinophils % 4.3 % (0-4.4); Hematocrit 31.2 % (36.0-45.0); Hemoglobin 10.6 g/dL (12.0-15.0); Lymphocytes % 16.8 % (15.3-44.8); MCH 34.5 pg (27.0-35.0); MCV 101.3 fL (80-100); MPV 10.1 fL (7.6-11.3); Monocytes % 6.8 % (3.3-12.3); Neutrophils % 71.7 % (41.7-73.7); Nucleated Red Blood Cells % 0.1 % (0-0); Platelets 194 thou/uL (152-406); RBC Red Blood Cell Count 3.08 M/uL (3.86-4.86); Red Cell Distribution Width 14.3 % (12.1-15.2)
[2024-04-28 06:14] LABS: Albumin 2.4 g/dL (3.4-5.0); Anion Gap 12.7 mEq/L (5.0-15.0); Magnesium 2.2 mg/dL (1.6-2.4); Phosphorus 3.9 mg/dL (2.5-4.9); Potassium 3.7 mEq/L (3.5-5.1)
[2024-04-28] MEDS: AMIODARONE HCL 200 MG TAB PO SCH (10:32)
--- NOTE | 2024-04-28 11:44 | P.PN ---
Subjective Date of Service: 04/28/24 Chief Complaint: Worsening CHF/CKD Subjective: No new changes, No C/O voiced, Tolerating diet, Ambulating, Improving Review of Systems 10-point ROS is otherwise unremarkable Physical Examination - Vital Signs Temperature: 98.1 F Blood Pressure: 121/66 Pulse: 90 Respirations: 20 Pulse Ox (%): 100 - Physical Exam General: Alert, In no apparent distress HEENT: Atraumatic, PERRLA, EOMI Neck: Supple, JVD not distended Respiratory: Clear to auscultation bilaterally, Normal air movement Cardiovascular: Regular rate/rhythm, Normal S1 S2 Gastrointestinal: Normal bowel sounds, No tenderness Musculoskeletal: No tenderness Integumentary: No rashes Neurological: Normal speech, Normal tone, Normal affect Lymphatics: No axilla or inguinal lymphadenopathy - Studies Medications List Reviewed: Yes Assessment And Plan - Current Problems (Diagnosis) (1) Acute on chronic systolic heart failure Current Visit: No Status: Acute Plan: Lasix 40 mg IV BID continue to monitor input and output and electrolytes Echo no changes from before with severe reduced LV systolic function (2) Chest pain Onset Date: 08/18/14 Current Visit: No Status: Acute Plan: cardiac enzymes are negative, continue patient Plavix 75 mg daily (3) Atrial fibrillation Current Visit: No Status: Chronic Plan: continue amiodarone 200 mg po BID coreg 3.125 mg po BID resume patient eliquis 2.5 mg po BID Qualifiers:
[2024-04-28 16:44] LABS: Specific Gravity 1.011 (1.005-1.030); Sqamous Epithelial None Seen /HPF (None Seen); Urine Bacteria <20 /HPF (<20); Urine Bilirubin NEGATIVE (Negative); Urine Blood Negative (Negative); Urine Clarity Extremely Turbid (Clear); Urine Color Light-Yellow (Yellow); Urine Crystals Unidentified Few /HPF (None Seen); Urine Culture Reflex Order REFLEXED; Urine Glucose NEGATIVE (Negative); Urine Ketones NEGATIVE (Negative); Urine Microscopic Reflex YN ORDER UMIC; Urine Nitrite NEGATIVE (Negative); Urine Protein NEGATIVE (Negative); Urine RBC <5 /HPF (None Seen); Urine Urobilinogen Normal (Normal); Urine Yeast (Budding) Trace /HPF (None Seen)
[2024-04-28] MEDS ORDERED: D10W 125 ML IV PRN (17:26)
[2024-04-28 17:36] VITALS: O2SAT 98
[2024-04-28] MEDS: MAGNESIUM HYDROXIDE 8% 30 ML PO ONE (17:37)
--- NOTE | 2024-04-28 18:34 | P.PN ---
Date of Service: 04/28/24 Subjective Awake and conversing well down graded to the floor likely discharge tomorrow Continues to refuse dialysis ROS 10 point ROS as noted above, otherwise negative Physical Exam General: Awake NAD oriented Respiratory: Clear BBS, on RA Cardiovascular: NSR, Normal S1 S2, Edema Capillary refill: <2 Seconds Gastrointestinal: Soft on palpation Musculoskeletal: No clubbing Integumentary: No rashes Neurological: Normal speech, Normal tone Vitals Reviewed Problem list Acute hypoxic respiratory failure 2/2 Systolic CHF exacerbation Afib Debilitation/frequent falls Seizures Fluid volume overload 2/2 CKD stage IV Uremic 2/2 Cardiorenal syndrome hyponatremia Acute left posterior ninth and 10th rib fractures Hyperglycemia HTN/HLD CAD Assessment and Plan Acute hypoxic respiratory failure 2/2 Systolic CHF exacerbation Afib NSTEMI -Oxygen protocol -Lasix BID -ECHO reduced EF 15 to 20%, severely dilated left ventricle cavity, grade 3 diastolic dysfunction, mild to moderate mitral and tricuspid regurgitation -Cardiology consulted -Continue home medications -strict I and O -Daily weight -Trend troponin, started heparin gtt Debilitation/frequent falls Seizures -dilantin level -physical therapy Fluid volume overload 2/2 CKD stage IV Uremic 2/2 Cardiorenal syndrome hyponatremia -BNP 26,798, BUN/creatinine 95/2.62, GFR 18, Na 130 -Sees Dr. Shannon -Reports refusal of dialysis Acute left posterior ninth and 10th rib fractures -pain control -incentive spirometry Hyperglycemia -serum glucose 252 -Accucheck with SSI -A1C 7.9 HTN/HLD CAD -continue home medications as appropriate Interval hospital course 04/25/24 -Discussed need for dialysis -continues to be uremic -Nephrology following -will discuss hospice 04/26/24 -uremia continues -UOP significantly decreased -Nephrology plans to continue diuresis 04/27/24 - moved to ICU for irregular heart rhythm -amiodarone gtt started -reached out to cardiology -NSTEMI, started heparin gtt 04/28/24 -Transferred to the floor -Nephrology continues diuresis -likely dc in the AM DVT ppx heparin Full code LOS 2-3 days Discharge Plan: Home Plan to discharge in: 72 Hours
[2024-04-28] MEDS: APIXABAN 2.5 MG TABLET PO SCH (20:42)
--- NOTE | 2024-04-28 23:18 | PN ---
Date of Progress Note: 04/28/2024 Chief Complaint: Acute on chronic kidney injury, cardiorenal syndrome. Subjective: The patient was admitted to the hospital with congestive heart failure exacerbation. Sh e was started on diuretic. Subsequently, she was transferred to ICU for atrial fibrillation with rap id ventricular response. She was started on amiodarone. Acute kidney injury on advanced chronic kid casi disease. The patient is fluid overloaded. She is on diuretic. The patient was treated with Las ix as well as she required midodrine for blood pressure support. Review of Systems: Denies fever, chills. Physical Examination: Lungs: Clear to auscultation bilaterally. Heart: S1, S2. Abdomen: Soft, benign. Extremities: Trace edema. Impression And Plan: 1. Acute kidney injury on advanced chronic kidney disease. Monitor renal function. Midodrine was us ed for blood pressure support. The patient received treatment for atrial fibrillation with rapid nohemi tricular response. 2. Hypotension. Blood pressure was on low side, and the patient was started on midodrine. 3. Congestive heart failure exacerbation. Adjust diuretic according to volemia status. 4. Atrial fibrillation, per Cardiology. EB/MODL Voice ID: [id number] Report ID: [id number]
[2024-04-28] MEDS: MORPHINE 4 MG/ML SYR IV PRN (23:53)
[2024-04-29 05:56] LABS: Absolute Eosinophils 0.2 K/uL (0-0.5); Absolute Monocytes 0.6 K/uL (0.1-1.3); Absolute Neutrophil 3.8 K/uL (1.8-8.0); Basophils % 0.5 % (0-1.3); Eosinophils % 4.1 % (0-4.4); Hematocrit 29.8 % (36.0-45.0); Hemoglobin 10.6 g/dL (12.0-15.0); Lymphocytes % 17.5 % (15.3-44.8); MCH 35.3 pg (27.0-35.0); MCHC 35.4 g/dL (32.0-36.0); MCV 99.8 fL (80-100); MPV 10.2 fL (7.6-11.3); Neutrophils % 67.9 % (41.7-73.7); Platelets 176 thou/uL (152-406); RBC Red Blood Cell Count 2.99 M/uL (3.86-4.86); Red Cell Distribution Width 14.5 % (12.1-15.2)
[2024-04-29 06:06] LABS: Albumin 2.5 g/dL (3.4-5.0); Anion Gap 10.7 mEq/L (5.0-15.0); Magnesium 2.3 mg/dL (1.6-2.4); Phosphorus 4.1 mg/dL (2.5-4.9); Potassium 3.7 mEq/L (3.5-5.1)
--- NOTE | 2024-04-29 10:35 | P.PN ---
Subjective Date of Service: 04/29/24 Chief Complaint: Worsening CHF/CKD Subjective: No new changes, No C/O voiced, Tolerating diet, Ambulating, Improving Review of Systems 10-point ROS is otherwise unremarkable Physical Examination - Vital Signs Temperature: 97.1 F Blood Pressure: 101/58 Pulse: 90 Respirations: 18 Pulse Ox (%): 94 - Physical Exam General: Alert, In no apparent distress HEENT: Atraumatic, PERRLA, EOMI Neck: Supple, JVD not distended Respiratory: Clear to auscultation bilaterally, Normal air movement Cardiovascular: Regular rate/rhythm, Normal S1 S2 Gastrointestinal: Normal bowel sounds, No tenderness Musculoskeletal: No tenderness Integumentary: No rashes Neurological: Normal speech, Normal tone, Normal affect Lymphatics: No axilla or inguinal lymphadenopathy - Studies Medications List Reviewed: Yes Assessment And Plan - Current Problems (Diagnosis) (1) Acute on chronic systolic heart failure Current Visit: No Status: Acute Plan: switch lasix to 40 mg po daily add jardiance 10 mg daily continue to monitor input and output and electrolytes Echo no changes from before with severe reduced LV systolic function (2) Chest pain Onset Date: 08/18/14 Current Visit: No Status: Acute Plan: cardiac enzymes are negative, continue patient Plavix 75 mg daily (3) Atrial fibrillation Current Visit: No Status: Chronic Plan: continue amiodarone 200 mg po BID coreg 3.125 mg po BID eliquis 2.5 mg po BID Qualifiers:
--- NOTE | 2024-04-29 11:06 | EKG ---
Test Date: 2024-04-27 Test Time: 07:48:06 Knotter Hand: LAUREN MEASUREMENT RESULTS: Intervals: Rate: 89 [place]: QRSD: 180 QT: 472 QTc: 574 [place]: P: [place]: QRS: -83 T: 118 INTERPRETIVE STATEMENTS: AV sequential or dual chamber electronic pacemaker Compared to ECG 04/27/2024 04:52:19 Wide-QRS tachycardia no longer present Electronically Signed On 04-29-24 10:59:55 CDT by Arden Garza
--- NOTE | 2024-04-29 11:07 | EKG ---
Test Date: 2024-04-27 Test Time: 04:52:19 Care Aid: SREG MEASUREMENT RESULTS: Intervals: Rate: 133 MT: QRSD: 156 QT: 402 QTc: 598 [place]: P: MT: QRS: 120 T: -68 INTERPRETIVE STATEMENTS: AF with RVR with aberrancy Nonspecific intraventricular block Abnormal ECG Compared to ECG 04/24/2024 05:57:28 Wide-QRS tachycardia now present AV dual-paced complex(es) or rhythm no longer present Electronically Signed On 04-29-24 11:00:34 CDT by Arden Garza
--- NOTE | 2024-04-29 11:24 | EKG ---
Test Date: 2024-04-24 Test Time: 05:57:28 Face Burler: JOSE MEASUREMENT RESULTS: Intervals: Rate: 89 MS: 142 QRSD: 196 QT: 480 QTc: 584 [place]: P: MS: 142 QRS: -81 T: 100 INTERPRETIVE STATEMENTS: Poor data quality, interpretation may be adversely affected AV sequential or dual chamber electronic pacemaker Compared to ECG 04/24/2024 05:56:07 No significant changes Electronically Signed On 04-29-24 11:06:59 CDT by Arden Garza
--- NOTE | 2024-04-29 11:24 | EKG ---
Test Date: 2024-04-24 Test Time: 05:56:07 Canal Driver: JOSE MEASUREMENT RESULTS: Intervals: Rate: 89 [place]: QRSD: 190 QT: 490 QTc: 596 [place]: P: 85 [place]: QRS: -86 T: 102 INTERPRETIVE STATEMENTS: Poor data quality, interpretation may be adversely affected AV sequential or dual chamber electronic pacemaker Compared to ECG 12/25/2023 18:48:06 Wide-QRS tachycardia no longer present Left bundle-branch block no longer present Electronically Signed On 04-29-24 11:07:02 CDT by Arden Garza
[2024-04-29 12:21] VITALS: BP 111/58; TEMP 97.7
--- NOTE | 2024-04-29 13:16 | P.DS ---
Admission Date: 04/24/24 Discharge Date: 04/29/24 Disposition: DC HOME/HOME HEALTH CARE Discharge Condition: GOOD Reason for Admission: Worsening CHF/CKD Brief History of Present Illness: Teena Simpson is a 79 year old female with Pmhx CKD, CHF, HTN, Afib who presents to the ED after a fall at home with bilateral upper/ lower extremity and left rib pain. She reports seeing Dr. Moore and Dr. Shannon for CHF and CKD but refuses dialysis. On evaluation, she is fatigued, oriented, and denies fever/chills. Laboratory evaluation significant for H&H , sodium 130, potassium 4.7, BUN/creatinine 95/2.62, GFR 18, serum glucose 252, BNP 26,798. Chest xray reports "Prominent interstitial markings. Peribronchial thickening. No consolidation." CT CAP report " 1. No evidence of solid organ injury on this noncontrasted CT of the chest, abdomen, and pelvis. 2. Acute left posterior ninth and 10th rib fractures. 3. Chronic findings as detailed above." Bilateral venous ultrasound reports "Right and Left common femoral, greater saphenous, femoral, deep (profunda) femoral, popliteal, posterior tibial veins unremarkable without evidence of clot. IMPRESSION: No sonographic evidence of right or left lower extremity DVT." CT C-spine and head reports "1. No acute intracranial findings. 2. Straightening of the normal cervical curvature is present. Findings may be secondary to patient position versus muscle spasm. No acute fracture." Teena will be admitted to hospitalist service for further evaluation and treatment of worsening CHF and CKD. Hospital Course: Problem list Acute hypoxic respiratory failure 2/2 Systolic CHF exacerbation Afib Debilitation/frequent falls Seizures Fluid volume overload 2/2 CKD stage IV Uremic 2/2 Cardiorenal syndrome hyponatremia Acute left posterior ninth and 10th rib fractures Hyperglycemia HTN/HLD CAD Patient was admitted to the hospital for CHF exacerbation/CKD, fall. On admission she was also noted to have acute left posterior ninth and 10th rib fractures. She was seen by cardiology and nephrology who adjusted her medications including her diuretics. Of note patient declines HD despite worsening CKD and uremia is aware of the risk including . She had a repeat echocardiogram performed on 04/24 which showed severely dilated left ventricular cavity, severely reduced LVEF of 15 to 20% with severe global hypokinesis, grade 3 diastolic dysfunction. Her hospitalization was complicated with A-fib RVR requiring amiodarone drip. She was weaned off the amnio drip and is currently on amiodarone 20 mg twice daily by mouth, she was on 100 mg daily at home prior to this. Today she is doing much better, she worked well with physical therapy yesterday ambulating about 75 feet with a walker, patient is requesting discharge. Medication changes at discharge will be as follows Amiodarone dose will be increased from 100 mg daily to 200 mg twice daily New medication Lasix 40 mg daily Renew/resume taking midodrine 5 mg 3 times daily increase blood pressure, hold if blood pressure is more than 120 on the top number-new prescription sent to [facility] 10 mg daily for advanced CHF Follow-up with both cardiology and nephrology in the next 1 to 2 weeks in clinic Continue taking your other home medications including your Eliquis Use the incentive spirometer to help prevent developing pneumonia after having your rib fractures Use your walker at all times As needed pain medication also to be sent to the pharmacy Vital Signs/Physical Exam: Temp Pulse Resp BP Pulse Ox 97.7 F 89 14 111/58 L 96 04/29/24 12:00 04/29/24 12:00 04/29/24 12:00 04/29/24 12:00 04/29/24 12:00 General: Alert, In no apparent distress, Oriented x3 HEENT: Atraumatic, PERRLA Neck: Supple, JVD not distended Respiratory: Clear to auscultation bilaterally, Normal air movement Cardiovascular: Regular rate/rhythm, Normal S1 S2 Gastrointestinal: Normal bowel sounds, No tenderness Musculoskeletal: No tenderness Integumentary: Other (Bruising to left posterior thorax) Neurological: Normal speech, Normal affect Laboratory Data at Discharge: WBC 5.60 thou/uL (4.3-10.9) 04/29/24 05:20 Hgb 10.6 g/dL (12.0-15.0) L 04/29/24 05:20 Hct 29.8 % (36.0-45.0) L 04/29/24 05:20 Plt Count 176 thou/uL (152-406) 04/29/24 05:20 PT 14.9 SECONDS (10.0-13.0) H 04/24/24 04:23 INR 1.32 04/24/24 04:23 APTT 60.5 SECONDS (27.2-37.4) H 04/28/24 05:40 Sodium 136 mEq/L (136-145) 04/29/24 05:20 Potassium 3.7 mEq/L (3.5-5.1) 04/29/24 05:20 BUN 102 mg/dL (7-18) H 04/29/24 05:20 Creatinine 2.20 mg/dL (0.55-1.02) H 04/29/24 05:20 Glucose 158 mg/dL (74-106) H 04/29/24 05:20 Phosphorus 4.1 mg/dL (2.5-4.9) 04/29/24 05:20 Magnesium 2.3 mg/dL (1.6-2.4) 04/29/24 05:20 Total Bilirubin 0.5 mg/dL (0.2-1.0) 04/24/24 02:30 AST 58 U/L (15-37) H 04/24/24 02:30 ALT 54 U/L (13-56) 04/24/24 02:30 Alkaline Phosphatase 174 U/L (45-117) H 04/24/24 02:30 Home Medications: Atorvastatin Calcium [Lipitor] 40 mg PO BEDTIME 08/07/21 Insulin NPH Human Isophane [Novolin N] 25 unit SQ SEECOM 06/30/23 Apixaban [Eliquis *] 2.5 mg PO BID 07/26/23 Clopidogrel Bisulfate [Plavix] 75 mg PO DAILY 07/26/23 carvediloL [Coreg*] 3.125 mg PO BID 6AM 6PM 30 Days #60 tab 07/30/23 PHENYTOIN ER Cap [Dilantin ER Cap*] 300 mg PO SEECOM 12/25/23 Albuterol Neb [Proventil 0.083% Neb Soln] 1 vial NEB PRN PRN 04/24/24 Ipratropium [place] 1 vial NEB PRN PRN 04/24/24 Amiodarone HCl [Cordarone*] 200 mg PO BID 30 Days #60 tab 04/29/24 Empagliflozin [Jardiance] 10 mg PO DAILY #30 tab 04/29/24 Furosemide [Lasix] 40 mg PO DAILY #60 tab 04/29/24 Hydrocodone 5/APAP 325 [[place] 5/325] 1 tab PO Q6H PRN #15 tab 04/29/24 Midodrine HCl [Proamatine*] 5 mg PO TID #90 tab 04/29/24 New Medications: Amiodarone HCl [Cordarone*] 200 mg PO BID 30 Days #60 tab Empagliflozin [Jardiance] 10 mg PO DAILY #30 tab Furosemide [Lasix] 40 mg PO DAILY #60 tab Hydrocodone 5/APAP 325 [[place] 5/325] 1 tab PO Q6H PRN #15 tab PRN Reason: Pain Midodrine HCl [Proamatine*] 5 mg PO TID #90 tab Physician Discharge Instructions: Patient was admitted to the hospital for CHF exacerbation/CKD, fall. On admission she was also noted to have acute left posterior ninth and 10th rib fractures. She was seen by cardiology and nephrology who adjusted her medications including her diuretics. Of note patient declines HD despite worsening CKD and uremia is aware of the risk including . She had a repeat echocardiogram performed on 04/24 which showed severely dilated left ventricular cavity, severely reduced LVEF of 15 to 20% with severe global hypokinesis, grade 3 diastolic dysfunction. Her hospitalization was complicated with A-fib RVR requiring amiodarone drip. She was weaned off the amnio drip and is currently on amiodarone 20 mg twice daily by mouth, she was on 100 mg daily at home prior to this. Today she is doing much better, she worked well with physical therapy yesterday ambulating about 75 feet with a walker, patient is requesting discharge. Medication changes at discharge will be as follows Amiodarone dose will be increased from 100 mg daily to 200 mg twice daily New medication Lasix 40 mg daily Renew/resume taking midodrine 5 mg 3 times daily increase blood pressure, hold if blood pressure is more than 120 on the top number-new prescription sent to [facility] 10 mg daily for advanced CHF Follow-up with both cardiology and nephrology in the next 1 to 2 weeks in clinic Continue taking your other home medications including your Eliquis Use the incentive spirometer to help prevent developing pneumonia after having your rib fractures Use your walker at all times As needed pain medication also to be sent to the pharmacy Diet: Renal Activity: Fall precautions Followup: Tejal Colvin MD [ACTIVE - CAN ADMIT] - 1 Week Arden Garza MD [ACTIVE - CAN ADMIT] - 1 Week KERVIN COLON [Primary Care Provider] - 1 Week Time spent managing pt's care (in minutes): 54
--- NOTE | 2024-04-29 14:24 | PN ---
Subjective: The patient was admitted to the hospital with acute kidney injury on chronic kidney disease secondary to cardiorenal. The patient after adjusting her diuresis, kidney function has improved. The patient has poor appetite, started on Megace. Physical Examination: Vital Signs: Blood pressure 111/58, pulse of 89, afebrile. Chest: Clear to auscultation. Heart: S1, S2. Regular. Abdomen: Soft, nontender. Extremities: Trace edema. Neurologic: Alert. No focality. Laboratory Data: For the patient, hemoglobin 10.6, hematocrit 36, potassium 3.7, bicarb 27, BUN 102, creatinine 2.2, calcium 8.3, phosphorus 4.1, magnesium 2.3. Current Medications: The patient on, it includes: 1. Lasix 40 mg b.i.d. 2. Plavix. 3. Heparin. 4. Amiodarone. 5. Carvedilol. Assessment And Plan: 1. Acute kidney injury secondary to cardiorenal on advanced chronic kidney disease. No need for renal replacement therapy for the time being. Continue diuresis will monitor the patient closely. 2. Hypertension, controlled, optimal. Continue current treatment. 3. Anemia of chronic kidney disease, stable. 4. Congestive heart failure with exacerbation. Currently, normal volume. Continue current diuresis continue to monitor time spent examining the patient [id number] reviewing data lab and the radiology placing order discussing the case with the patient discussing the case with the application development team lead including hospitalist and nursing staff more than 55-minute IFEANYI Voice ID: [id number] Report ID: [id number] MELISSA
== END 2024-04-29 13:40 | disposition home health service (06) | DRG 291 ==
LOC: ER 22:57 → ERHOLD 04-24 08:40 → 2ND 04-24 17:56 → 3RD-ICU 04-27 06:41 → 2ND 04-28 16:59
PROVIDERS: ADMIT Internal Medicine; ATTEND Hospitalist
PROC: 02HV33Z Insertion of Infusion Device into Superior Vena Cava, Percutaneous Approach (ICD-10-PCS; principal; 2024-04-24)
DX: I13.0 Hypertensive heart and chronic kidney disease with heart failure and stage 1 through stage 4 chronic kidney disease, or unspecified chronic kidney disease (principal); I50.23 Acute on chronic systolic (congestive) heart failure; J96.01 Acute respiratory failure with hypoxia; S22.42XA Multiple fractures of ribs, left side, initial encounter for closed fracture; N18.4 Chronic kidney disease, stage 4 (severe); E87.1 Hypo-osmolality and hyponatremia; N17.9 Acute kidney failure, unspecified; I48.20 Chronic atrial fibrillation, unspecified; G93.40 Encephalopathy, unspecified; E11.22 Type 2 diabetes mellitus with diabetic chronic kidney disease; E11.40 Type 2 diabetes mellitus with diabetic neuropathy, unspecified; E11.65 Type 2 diabetes mellitus with hyperglycemia; E87.5 Hyperkalemia; E87.6 Hypokalemia; E78.00 Pure hypercholesterolemia, unspecified; I08.1 Rheumatic disorders of both mitral and tricuspid valves; I25.2 Old myocardial infarction; I25.10 Atherosclerotic heart disease of native coronary artery without angina pectoris; R29.6 Repeated falls; R62.7 Adult failure to thrive; R56.9 Unspecified convulsions; Z79.4 Long term (current) use of insulin; Z88.1 Allergy status to other antibiotic agents; Z88.8 Allergy status to other drugs, medicaments and biological substances; Z79.82 Long term (current) use of aspirin; Z68.27 Body mass index [BMI] 27.0-27.9, adult; Z79.01 Long term (current) use of anticoagulants; Z79.52 Long term (current) use of systemic steroids; Z79.02 Long term (current) use of antithrombotics/antiplatelets; Z79.84 Long term (current) use of oral hypoglycemic drugs; Z90.49 Acquired absence of other specified parts of digestive tract; Z95.810 Presence of automatic (implantable) cardiac defibrillator; Z79.899 Other long term (current) drug therapy; W18.30XA Fall on same level, unspecified, initial encounter; Y93.9 Activity, unspecified; Y92.019 Unspecified place in single-family (private) house as the place of occurrence of the external cause; Y99.9 Unspecified external cause status
CPT/HCPCS: 36415; 36556; 70450; 71045; 71250; 72125; 74176; 80048; 80069; 80076; 80185; 81001; 82947; 83036; 83735; 83880; 84439; 84443; 84484; 85025; 85610; 85730; 87077; 87086; 87088; 87186; 93005; 93306; 93970; 94010; 96374; 97116; 97161; 99285; J0282; J1644; J1815; J1940; J3480; J7040; J7060

== ENCOUNTER 2024-05-07 17:59 | Emergency (ER) | payer OTHER ==
[2024-05-07] MEDS ORDERED: FENTANYL CITR 100 MCG/2 ML ONE (18:33)
--- NOTE | 2024-05-07 18:51 | RAD REPORT ---
EXAMINATION: UPPER EXTREMITY VENOUS UNILATE CLINICAL INDICATION: Female, 79 years old.PAIN TECHNIQUE: Multiplanar grayscale and color Doppler images were obtained in a upper extremity venous ultrasound. Spectral analysis of the Doppler waveforms were performed. COMPARISON: No prior exams FINDINGS: The internal jugular vein, subclavian vein, axillary vein, basilic vein, brachial vein, cephalic vein , radial vein, and ulnar vein were evaluated and patent. The brachial vein, cephalic vein, radial vein, and ulnar veins were compressible and patent. IMPRESSION: No evidence of deep venous thrombosis in the right upper extremity.
--- NOTE | 2024-05-07 19:26 | RAD REPORT ---
EXAMINATION: C Spine Wo Con CLINICAL INDICATION: Female, 79 years old. PAIN TECHNIQUE: Axial CT images through the cervical spine were obtained without intravenous contrast. Sag ittal and coronal reformatted images were created from the data set. One or more of the following dose reduction techniques were used: Automated exposure control, adjustment of the mA and/or kV accor ding to patient size, and/or iterative reconstruction. Unless otherwise specified, incidental findings do not require dedicated imaging follow-up. [id number]. COMPARISON: 04/24/2024 FINDINGS: ALIGNMENT: The cervical spine has normal alignment without scoliosis or spondylolisthesis. BONE: Vertebral body heights are maintained. No aggressive osseous lesions. DEGENERATIVE: Mild cervical spondylosis with some scattered facet degenerative changes and uncoverteb ral joint hypertrophy but no high-grade central spinal stenosis or neural foraminal narrowing. SOFT TISSUE: No significant abnormalities in the soft tissue of the neck. . Left upper chest wall pac emaker. IMPRESSION: No acute cervical spine abnormalities.
--- NOTE | 2024-05-07 19:36 | RAD REPORT ---
EXAMINATION: CT CHEST WITHOUT CONTRAST CLINICAL INDICATION: Female, 79 years old. rib fractures TECHNIQUE: Routine CT scan of the chest without intravenous contrast. One or more of the following do se reduction techniques were used: Automated exposure control, adjustment of the mA and/or kV according to patient size, and/or iterative reconstruction. Unless otherwise specified, incidental fi ndings do not require dedicated imaging follow-up. [id number]. COMPARISON: 04/24/2024 FINDINGS: LOWER NECK: Partially calcified right thyroid nodule which is unchanged. Left upper chest wall pacema ker. LUNGS AND AIRWAYS: Mild intralobular septal thickening. Small bilateral pleural effusions.Motion roddy fact limits evaluation for pulmonary nodule detection. PLEURA: Small bilateral effusions. No pneumothorax. MEDIASTINUM AND LYMPH NODES: No mediastinal mass or fluid collection. Normal size mediastinal, hilar, and axillary lymph nodes. THORACIC AORTA: No thoracic aortic aneurysm. Atherosclerotic changes are present. PULMONARY ARTERIES: Caliber is within normal limits. HEART: Moderate cardiomegaly. Severe coronary artery calcifications.No significant pericardial effusi on. Aortic valve calcifications. OSSEOUS STRUCTURES AND CHEST WALL: Multilevel degenerative changes. Slightly displaced fracture invol ving the right scapula includes the coracoid process.. No extension to the right glenoid. Again noted are left-sided rib fractures involving the left ninth through 11th ribs. UPPER ABDOMEN: No acute abnormalities. IMPRESSION: Acute minimally displaced fracture involving the right scapula including the coracoid process. Previo usly noted left-sided rib fractures are unchanged. Mild pulmonary edema.
--- NOTE | 2024-05-07 19:49 | RAD REPORT ---
EXAMINATION: Humerus Right CLINICAL INDICATION: Female, 79 years old. PAIN RIGHT COMPARISON: No prior exam. IMPRESSION: No right humerus fracture. Reference CT for description of right scapular fracture.
--- NOTE | 2024-05-07 20:00 | EDPHYS ---
Physician Documentation [facility] Name: Teena Simpson Age: 79 yrs Sex: Female : 1945 Arrival Date: 05/07/2024 Time: 17:59 Bed 13 Private MD: ED Physician Jody Sampson HPI: 05/07 18:23 This 79 yrs old Female presents to ER via Unassigned with complaints of Arm 4 Pain. 18:23 Patient states that she sustained a fall 2 weeks ago and ended up being admitted to the [facility] for several reasons, 1 being rib fractures. States that she was discharged about a week ago with hydrocodone but over the past few days she has developed a lot of pain in her right arm. She is not sure if she injured that during the initial fall, but it was not hurting her before. She denies any reinjury. No redness or swelling. Historical: - Allergies: 18:16 Augmentin; ph 18:16 Cipro; ph 18:16 Keppra; ph - Home Meds: 18:16 amiodarone 100 mg Oral tablet daily [Active]; atorvastatin 40 mg Oral tab 1 tab every ph day at bedtime [Active]; carvedilol 3.125 mg Oral tablet 2 tabs daily [Active]; clopidogrel 75 mg Oral tablet [Active]; Eliquis 2.5 mg Oral tablet 2 tabs daily [Active]; furosemide 40 mg Oral tab 2 tabs daily [Active]; ipratropium-albuterol 0.5 mg-3 mg(2.5 mg base)/3 mL Inhl Solution for Nebulization as needed [Active]; midodrine 5 mg Oral tablet PRN [Active]; Novolin N NPH U-100 Insulin 100 unit/mL Sub-Q tab 20 units every evening [Active]; Phenytoin 100mg Oral 3 cap daily [Active]; - PMHx: 18:16 Anxiety; Atrial Fib; CHF; Diabetes - IDDM; High Cholesterol; Hypertension; Kidney ph failure stage 4; Low HR; Myocardial infarction; neuropathy; Seizures; - PSHx: 18:16 Appendectomy; carpal tunnel; Hemorrhoidectomy; Pacemaker-Defib; ph - Immunization history:: Adult Immunizations unknown. - Infectious Disease History:: Denies. - Social history:: Smoking status: Patient denies any tobacco usage or history of. ROS: 18:23 Constitutional: Negative for fever, chills, and weight loss, sb4 18:23 MS/extremity: Positive for pain, of the right bicep and right tricep, 18:23 All other systems are negative, Exam: 18:24 Constitutional: This is a well developed, well nourished patient who is awake, alert, sb4 and in no acute distress. Head/Face: Normocephalic, atraumatic. Eyes: Extra-ocular motions intact. Periorbital areas with no swelling, redness, or edema. ENT: Mucous membranes moist. Respiratory: No increased work of breathing, no retractions or nasal flaring. 18:24 Musculoskeletal/extremity: ROM: limited active range of motion due to pain, in the right arm, limited passive range of motion due to pain, Circulation is intact in all extremities. Pulses: are normal with no appreciated deficits, Perfusion: the extremity is normally perfused throughout, Sensation intact. Vital Signs: 18:39 BP 105 / 66; Pulse 89; Resp 18; Temp 98; Pulse Ox 98% on R/A; ph 19:30 BP 113 / 76; Pulse 88; Resp 16; Pulse Ox 100% ; al5 20:30 BP 120 / 71; Pulse 81; Resp 16; Pulse Ox 100% ; al5 MDM: 18:02 Medical Screening Exam initiated sb4 19:57 Data reviewed: vital signs, nurses notes, radiologic studies, and as a result, I will sb4 discharge patient. Counseling: I had a detailed discussion with the patient and/or guardian regarding the historical points, exam findings, and any diagnostic results supporting the discharge/admit diagnosis, radiology results, the need for outpatient follow up, a orthopedic surgeon, to return to the emergency department if symptoms worsen or persist or if there are any questions or concerns that arise at home. 05/07 18:19 Order name: Humerus Right XRAY; Complete Time: 19:51 sb4 05/07 18:20 Order name: C Spine W/O Contrast; Complete Time: 19:27 sb4 05/07 18:20 Order name: Chest Wo Con CT; Complete Time: 19:38 sb4 05/07 18:23 Order name: UPPER EXTREMITY VENOUS UNILATE; Complete Time: 18:52 EDMS 05/07 19:59 Order name: Shoulder Immobilizer; Complete Time: 21:03 sb4 Administered Medications: 18:43 Drug: fentaNYL (PF) IM 50 mcg IM once Route: IM; Site: left deltoid; ph 20:52 Follow up: Response: No adverse reaction; Pain is decreased al5 Disposition Summary: 05/07/24 19:59 Discharge Ordered Notes: Location: Home sb4 Problem: new sb4 Symptoms: have improved sb4 Condition: Stable sb4 Diagnosis - Acute fracture right scapula, nondisplaced sb4 Followup: sb4 - With: Magnus Luis MD - When: 1 week - Reason: Recheck today's complaints, Re-evaluation by your physician Discharge Instructions: - Discharge Summary Sheet sb4 - Scapular Fracture sb4 - How to Use a Shoulder Immobilizer sb4 Forms: - Patient Portal Instructions sb4 - Leadership Thank You Letter sb4 Prescriptions: - methocarbamol 750 mg Oral tablet - take 1 tablet ORAL route every 4 hours; 20 tablet; Refills: 0, Product sb4 Selection Permitted Signatures: Dispatcher [employer] Mara Basilio RN RN Marifer Boo, PA-C PAJohnathon sb4 Fang Hills RN al5 Corrections: (The following items were deleted from the chart) 18:20 18:20 Humerus Right+RAD.RAD.BRZ ordered. EDMS EDMS 18:20 18:20 Extremity Venous Uni Ltd+US.RAD.BRZ ordered. EDMS EDMS
--- NOTE | 2024-05-07 20:00 | ER ---
Nurse's Notes [facility] Name: Teena Simpson Age: 79 yrs Sex: Female : 1945 Arrival Date: 05/07/2024 Time: 17:59 Bed 13 Private MD: Diagnosis: Acute fracture right scapula, nondisplaced Presentation: 05/07 18:39 Chief complaint: Patient states: R arm pain after falling a few weeks ago. Coronavirus ph screen: Vaccine status: Patient reports receiving the 2nd dose of the covid vaccine. Ebola Screen: No symptoms or risks identified at this time. Initial Sepsis Screen: Does the patient meet any 2 criteria? No. Patient's initial sepsis screen is negative. Does the patient have a suspected source of infection? No. Patient's initial sepsis screen is negative. Risk Assessment: Do you want to hurt yourself or someone else? Patient reports no desire to harm self or others. 18:39 Method Of Arrival: Wheelchair ph 18:39 Acuity: TYSON 4 ph 18:42 Onset of symptoms was May 07, 2024. Triage Assessment: 18:40 General: Appears in no apparent distress. Behavior is calm, cooperative. Pain: ph Complains of pain in right arm. Neuro: Level of Consciousness is awake, alert, obeys commands, Oriented to person, place, time, situation. Cardiovascular: Capillary refill < 3 seconds in bilateral fingers Patient's skin is warm and dry. Respiratory: Airway is patent Respiratory effort is even, unlabored. Derm: Skin is pink, warm \T\ dry. Historical: - Allergies: 18:16 Augmentin; ph 18:16 Cipro; ph 18:16 Keppra; ph - Home Meds: 18:16 amiodarone 100 mg Oral tablet daily [Active]; atorvastatin 40 mg Oral tab 1 tab every ph day at bedtime [Active]; carvedilol 3.125 mg Oral tablet 2 tabs daily [Active]; clopidogrel 75 mg Oral tablet [Active]; Eliquis 2.5 mg Oral tablet 2 tabs daily [Active]; furosemide 40 mg Oral tab 2 tabs daily [Active]; ipratropium-albuterol 0.5 mg-3 mg(2.5 mg base)/3 mL Inhl Solution for Nebulization as needed [Active]; midodrine 5 mg Oral tablet PRN [Active]; Novolin N NPH U-100 Insulin 100 unit/mL Sub-Q tab 20 units every evening [Active]; Phenytoin 100mg Oral 3 cap daily [Active]; - PMHx: 18:16 Anxiety; Atrial Fib; CHF; Diabetes - IDDM; High Cholesterol; Hypertension; Kidney ph failure stage 4; Low HR; Myocardial infarction; neuropathy; Seizures; - PSHx: 18:16 Appendectomy; carpal tunnel; Hemorrhoidectomy; Pacemaker-Defib; ph - Immunization history:: Adult Immunizations unknown. - Infectious Disease History:: Denies. - Social history:: Smoking status: Patient denies any tobacco usage or history of. Screenin:41 [facility] ED Fall Risk Assessment (Adult) History of falling in the last 3 months, ph including since admission Yes- single mechanical fall (1 pt) Confusion or Disorientation No (0 pts) Intoxicated or Sedated No (0 pts) Impaired Gait Yes (1 pt) Mobility Assist Device Used Yes (1 pt) Altered Elimination Yes (1 pt) Score/Fall Risk Level 3 or more points = High Risk Oriented to surroundings, Maintained a safe environment, Hourly rounding (assess needs \T\ fall precautionary measures) done, Used ambulatory aids as needed (educated on \T\ assisted with). Abuse screen: Denies threats or abuse. Denies injuries from another. Nutritional screening: No deficits noted. Tuberculosis screening: No symptoms or risk factors identified. Assessment: 19:20 General: Appears in no apparent distress. comfortable, Behavior is calm, cooperative. al5 Pain: Denies pain. Neuro: Level of Consciousness is awake, alert, obeys commands, Oriented to person, place, time, situation. Cardiovascular: Capillary refill < 3 seconds Patient's skin is warm and dry. Respiratory: Airway is patent Respiratory effort is even, unlabored, Respiratory pattern is regular, symmetrical. GI: No signs and/or symptoms were reported involving the gastrointestinal system. : No signs and/or symptoms were reported regarding the genitourinary system. EENT: No signs and/or symptoms were reported regarding the EENT system. Derm: Skin is intact, is healthy with good turgor, Skin is pink, warm \T\ dry. normal. Musculoskeletal: Reports having R arm pain initially. 20:30 Reassessment: Patient appears in no apparent distress at this time. No changes from al5 previously documented assessment. Patient and/or family updated on plan of care and expected duration. Pain level reassessed. Patient is alert, oriented x 3, equal unlabored respirations, skin warm/dry/pink. Vital Signs: 18:39 BP 105 / 66; Pulse 89; Resp 18; Temp 98; Pulse Ox 98% on R/A; ph 19:30 BP 113 / 76; Pulse 88; Resp 16; Pulse Ox 100% ; al5 20:30 BP 120 / 71; Pulse 81; Resp 16; Pulse Ox 100% ; al5 ED Course: 18:01 Patient arrived in ED. mr 18:01 Marifer Boo PA-C is PHCP. sb4 18:01 Jody Sampson MD is Attending Physician. sb4 18:04 Mara Urbina, RN is Primary Nurse. ph 18:40 Triage completed. ph 18:40 Arm band placed on Patient placed in an exam room, on a stretcher. ph 18:42 Patient has correct armband on for positive identification. Bed in low position. Call ph light in reach. Side rails up X 1. Pulse ox on. NIBP on. Door closed. Noise minimized. Warm blanket given. Pillow given. 18:43 UPPER EXTREMITY VENOUS UNILATE In Process Unspecified. EDMS 19:12 C Spine W/O Contrast In Process Unspecified. EDMS 19:[address] In Process Unspecified. EDMS 19:16 Humerus Right XRAY In Process Unspecified. EDMS 19:58 Magnus Luis MD is Referral Physician. sb4 21:05 No provider procedures requiring assistance completed. Patient did not have IV access al5 during this emergency room visit. 21:06 Provided Education on: discharge follow up. al5 Administered Medications: 18:43 Drug: fentaNYL (PF) IM 50 mcg IM once Route: IM; Site: left deltoid; ph 20:52 Follow up: Response: No adverse reaction; Pain is decreased al5 Medication: 18:42 VIS not applicable for this client. ph Outcome: 19:59 Discharge ordered by . sb4 21:06 Discharged to home via wheelchair, with family, al5 21:06 Condition: good 21:06 Discharge instructions given to patient, family, Instructed on discharge instructions, follow up and referral plans. medication usage, Demonstrated understanding of instructions, follow-up care, medications, Prescriptions given X 1, 21:06 Patient left the ED. al5 Signatures: Dispatcher [employer] Marisela Meyer, Mara Karimi RN RN ph Brown, Sophia, CRISTINA PAJohnathon sb4 Fang Hills RN RN al5
[2024-05-08 01:26] VITALS: TEMP 98
[2024-05-08 01:27] VITALS: O2SAT 100
[2024-05-08 01:28] VITALS: BP 120/71
== END 2024-05-07 21:06 | disposition home or self-care (01) ==
LOC: ER 17:59
DX: S42.101A Fracture of unspecified part of scapula, right shoulder, initial encounter for closed fracture (principal); Z95.810 Presence of automatic (implantable) cardiac defibrillator
CPT/HCPCS: 71250; 72125; 73060; 93971; J3010

== ENCOUNTER 2024-05-11 15:04 | Inpatient (IN) | payer OTHER ==
[2024-05-11 15:54] LABS: Absolute Eosinophils 0.2 K/uL (0-0.5); Absolute Lymphocytes (CBC) 0.8 K/uL (0.7-4.9); Absolute Monocytes 0.4 K/uL (0.1-1.3); Absolute Neutrophil 3.9 K/uL (1.8-8.0); Basophils % 0.9 % (0-1.3); Eosinophils % 2.9 % (0-4.4); Hematocrit 29.6 % (36.0-45.0); Hemoglobin 9.9 g/dL (12.0-15.0); Lymphocytes % 14.8 % (15.3-44.8); MCH 34.1 pg (27.0-35.0); MCHC 33.4 g/dL (32.0-36.0); MCV 102.1 fL (80-100); MPV 9.3 fL (7.6-11.3); Monocytes % 7.5 % (3.3-12.3); Neutrophils % 73.9 % (41.7-73.7); Nucleated Red Blood Cells % 0.1 % (0-0); Platelets 289 thou/uL (152-406)
[2024-05-11 16:00] LABS: PT Prothrombin Time 17.4 SECONDS (10-13.0); Protime INR 1.56
[2024-05-11 16:19] LABS: Influenza A Ag Negative; Influenza B Ag Negative; SARS-CoV-2 Antigen Rapid Res Negative (Negative)
--- NOTE | 2024-05-11 16:28 | RAD REPORT ---
EXAMINATION: ONE VIEW CHEST XR CLINICAL INDICATION: Female, 79 years old.,DYSPNEA TECHNIQUE: Frontal chest projection is submitted. Examination is limited by patient positioning and t echnique. COMPARISON: 04/27/2024 FINDINGS: Right IJ CVC has been removed. Left chest wall pacer/AICD in place. The lungs are well inflated. Stab le central interstitial prominence. No pneumothorax or sizable effusion. The heart is normal in size. Mediastinal contours are unremarkable. IMPRESSION: Stable central interstitial prominence, may reflect mild central congestion.
[2024-05-11 16:34] LABS: Albumin 3.1 g/dL (3.4-5.0); Albumin/Globulin Ratio 0.8 (1.1-1.8); Anion Gap 12.2 mEq/L (5.0-15.0); Bilirubin Direct 0.2 mg/dL (0-0.2); Bilirubin Indirect, Calculated 0.2 mg/dL (0.2-0.8); Bilirubin Total 0.4 mg/dL (0.2-1.0); Globulin 4.1 g/dL (2.3-3.5); Magnesium 2.5 mg/dL (1.6-2.4); Potassium 4.2 mEq/L (3.5-5.1); Protein, Total 7.2 g/dL (6.4-8.2); Troponin High Sensitivity 46.6 pg/mL (<58.9)
--- NOTE | 2024-05-11 16:56 | EDPHYS ---
Physician Documentation [facility] Name: Teena Simpson Age: 79 yrs Sex: Female : 1945 Arrival Date: 05/11/2024 Time: 15:04 Bed 6 Private MD: ED Physician Jody Sampson HPI: 05/11 15:34 This 79 yrs old Female presents to ER via Wheelchair with complaints of sp3 Breathing Difficulty. 15:34 79-year-old female with complex medical history including stage IV kidney failure, sp3 hypertension, atrial fibrillation, CHF, hyperlipidemia now presents to the ED with increased difficulty breathing and peripheral edema over the last several days. Her Lasix dose was recently decreased. She denies headache, fever, chest pain, cough, back pain, abdominal pain, nausea, vomit, diarrhea, syncope, near syncope, plain immobilization, travel history, known sick contacts, or any other signs or symptoms on ROS at this time.. Historical: - Allergies: 15:30 Augmentin; hb 15:30 Cipro; hb 15:30 Keppra; hb - PMHx: 15:30 Kidney failure stage 4; Low HR; Hypertension; High Cholesterol; Atrial Fib; Anxiety; hb CHF; Diabetes - IDDM; Myocardial infarction; neuropathy; Seizures; - PSHx: 15:30 carpal tunnel; Appendectomy; Hemorrhoidectomy; Pacemaker-Defib; hb - Immunization history:: Adult Immunizations up to date. - Infectious Disease History:: Denies. - Social history:: Smoking status: Patient denies any tobacco usage or history of. ROS: 15:34 Constitutional: Negative for fever, chills, and weight loss, Eyes: Negative for injury, sp3 pain, redness, and discharge, ENT: Negative for injury, pain, and discharge, Neck: Negative for injury, pain, and swelling, Cardiovascular: Negative for chest pain, palpitations, and edema, Abdomen/GI: Negative for abdominal pain, nausea, vomiting, diarrhea, and constipation, Back: Negative for injury and pain, MS/Extremity: Negative for injury and deformity, Skin: Negative for injury, rash, and discoloration, Neuro: Negative for headache, weakness, numbness, tingling, and seizure, Psych: Negative for depression, anxiety, suicide ideation, homicidal ideation, and hallucinations, Allergy/Immunology: Negative for hives, rash, and allergies, Endocrine: Negative for neck swelling, polydipsia, polyuria, polyphagia, and marked weight changes, Hematologic/Lymphatic: Negative for swollen nodes, abnormal bleeding, and unusual bruising, 15:34 All other systems are negative, Exam: 15:34 Constitutional: This is a well developed, well nourished patient who is awake, alert, sp3 and in no acute distress. Head/Face: Normocephalic, atraumatic. Eyes: Pupils equal round and reactive to light, extra-ocular motions intact. Lids and lashes normal. Conjunctiva and sclera are non-icteric and not injected. Cornea within normal limits. Periorbital areas with no swelling, redness, or edema. ENT: Nares patent. No nasal discharge, no septal abnormalities noted. External auditory canals are clear. Oropharynx with no redness, swelling, or masses, exudates, or evidence of obstruction, uvula midline. Mucous membranes moist. Neck: Trachea midline, no thyromegaly or masses palpated, and no cervical lymphadenopathy. Supple, full range of motion without nuchal rigidity, or vertebral point tenderness. No Meningismus. Chest/axilla: Normal chest wall appearance and motion. Nontender with no deformity. No lesions are appreciated. Cardiovascular: Regular rate and rhythm with a normal S1 and S2. No gallops, murmurs, or rubs. Normal PMI, no JVD. No pulse deficits. Abdomen/GI: Soft, non-tender, with normal bowel sounds. No distension or tympany. No guarding or rebound. No evidence of tenderness throughout. Back: No spinal tenderness. No costovertebral tenderness. Full range of motion. Skin: Warm, dry with normal turgor. Normal color with no rashes, no lesions, and no evidence of cellulitis. Neuro: Awake and alert, GCS 15, oriented to person, place, time, and situation. Cranial nerves II-XII grossly intact. Motor strength 5/5 in all extremities. Sensory grossly intact. Cerebellar exam normal. Normal gait. Psych: Awake, alert, with orientation to person, place and time. Behavior, mood, and affect are within normal limits. 15:34 Respiratory: Rales bilaterally at the bases, 15:34 Musculoskeletal/extremity: Bilateral pedal edema 2+ pitting in nature.. 15:37 ECG was reviewed by the Attending Physician. EKG demonstrates ventricular paced rhythm sp3 at 90 bpm with adequate capture Vital Signs: 15:28 BP 108 / 79; Pulse 89; Resp 18; Temp 97.9(O); Pulse Ox 100% on R/A; hb 17:39 BP 119 / 78; Pulse 90; Resp 16; Pulse Ox 100% on R/A; jb4 18:28 BP 103 / 72; Pulse 89; Resp 20; Pulse Ox 100% on R/A; le1 20:00 BP 109 / 74; Pulse 91; Resp 19 S; Pulse Ox 98% on R/A; ha1 21:00 BP 112 / 72; Pulse 87; Resp 19 S; Pulse Ox 99% on R/A; ha1 MDM: 15:23 Medical Screening Exam initiated sp3 15:35 Data reviewed: vital signs, nurses notes, old medical records, lab test result(s), EKG, sp3 radiologic studies. ED course: 79-year-old female with PMH above well-known to the ED now presents for recurrent shortness of breath. Differential diagnosis include CHF exacerbation, pneumonia, other pulmonary process, among others. I am not highly suspicious of acute coronary syndrome, sepsis, shock or any other critical pathology. Workup will include chest x-ray, EKG and general labs including BNP and troponin. Lasix will be added on as indicated. Disposition pending workup and patient course.. 16:54 ED course: Lasix ordered for elevated BNP. Patient otherwise stable. Patient will be sp3 admitted to internal medicine.. 05/11 15:23 Order name: Basic Metabolic Panel; Complete Time: 16:51 3 05/11 15:23 Order name: CBC with Diff; Complete Time: 16:31 3 05/11 15:23 Order name: LFT's; Complete Time: 16:51 3 05/11 15:23 Order name: Magnesium; Complete Time: 16:51 3 05/11 15:23 Order name: NT PRO-BNP; Complete Time: 16:51 3 05/11 15:23 Order name: PT-INR; Complete Time: 16:31 3 05/11 15:23 Order name: Troponin HS; Complete Time: 16:51 3 05/11 15:36 Order name: COVID-19 Ag + Flu A+B Ag; Complete Time: 16:31 3 05/11 17:56 Order name: Urinalysis w/ reflexes EDMS 05/11 17:56 Order name: CBC with Automated Diff EDMS 05/11 17:56 Order name: CBC with Automated Diff EDMS 05/11 17:56 Order name: Comprehensive Metabolic Panel EDMS 05/11 17:56 Order name: Comprehensive Metabolic Panel EDMS 05/11 17:56 Order name: Magnesium EDMS 05/11 17:56 Order name: Magnesium EDMS 05/11 17:56 Order name: Phosphorus EDMS 05/11 17:56 Order name: Phosphorus EDMS 05/11 17:56 Order name: Troponin High Sensitivity EDMS 05/11 17:56 Order name: Troponin High Sensitivity EDMS 05/11 17:56 Order name: Troponin High Sensitivity EDMS 05/11 21:17 Order name: Glucose, Ancillary Testing EDMS 05/11 15:23 Order name: XRAY Chest (1 view); Complete Time: 16:31 sp3 05/11 17:56 Order name: CONS Physician Consult EDMS 05/11 15:23 Order name: Cardiac monitoring; Complete Time: 15:49 sp3 05/11 15:23 Order name: EKG - Nurse/Tech; Complete Time: 15:49 sp3 05/11 15:23 Order name: IV Saline Lock; Complete Time: 15:49 sp3 05/11 15:23 Order name: Labs collected and sent; Complete Time: 15:49 sp3 05/11 15:23 Order name: O2 Per Protocol; Complete Time: 15:49 sp3 05/11 15:23 Order name: O2 Sat Monitoring; Complete Time: 15:49 sp3 Administered Medications: 17:39 Drug: Furosemide IVP 40 mg IVP once; give over 2 minutes Route: IVP; Site: left jb4 antecubital; 18:29 Follow up: Response: No adverse reaction le1 Disposition Summary: 05/11/24 16:55 Hospitalization Ordered Notes: Hospitalization Status: Inpatient Admission sp3 Provider: Mina Peralta sp3 Condition: Stable sp3 Problem: an acute exacerbation sp3 Symptoms: have worsened sp3 Bed/Room Type: Standard sp3 Location: Telemetry/MedSurg (Inpatient)(05/11/24 22:00) vc1 Room Assignment: [facility](05/11/24 22:00) vc1 Diagnosis - CHF exacerbation, dyspnea sp3 Forms: - Medication Reconciliation Form sp3 - SBAR form sp3 - Leadership Thank You Letter sp3 Signatures: Dispatcher [employer] EDMS Jennifer Conteh, RN RN Ej Mcmillan RN RN jb4 Jody Sampson MD MD sp3 Lizbet Max RN RN vc1 Vic Hyman RN le1 Corrections: (The following items were deleted from the chart) 15:24 15:24 BASIC METABOLIC PANEL+C.LAB.BRZ ordered. EDMS EDMS 15:24 15:24 CBC+H.LAB.BRZ ordered. EDMS EDMS 15:24 15:24 HEPATIC FUNCTION+C.LAB.BRZ ordered. EDMS EDMS 15:24 15:24 MAGNESIUM+C.LAB.BRZ ordered. EDMS EDMS 15:24 15:24 PROBNP+C.LAB.BRZ ordered. EDMS EDMS 15:24 15:24 PROTIME (+INR)+COAG.LAB.BRZ ordered. EDMS EDMS 15:24 15:24 Troponin High Sensitivity+C.LAB.BRZ ordered. EDMS EDMS 15:24 15:24 Chest Single View+RAD.RAD.BRZ ordered. EDMS EDMS 22:00 16:55 Telemetry/MedSurg (Inpatient) sp3 vc1 22:00 16:55 sp3 vc1
--- NOTE | 2024-05-11 16:56 | ER ---
Nurse's Notes [facility] Name: Teena Simpson Age: 79 yrs Sex: Female : 1945 Arrival Date: 05/11/2024 Time: 15:04 Bed 6 Private MD: Diagnosis: CHF exacerbation, dyspnea Presentation: 05/11 15:28 Chief complaint: SOB and BLE swelling x 3 days. Recently decreased Lasix from BID to hb daily. Coronavirus screen: At this time, the client does not indicate any symptoms associated with coronavirus-19. Ebola Screen: No symptoms or risks identified at this time. Initial Sepsis Screen: Does the patient meet any 2 criteria? No. Patient's initial sepsis screen is negative. Does the patient have a suspected source of infection? No. Patient's initial sepsis screen is negative. Risk Assessment: Do you want to hurt yourself or someone else? Patient reports no desire to harm self or others. Onset of symptoms was May 08, 2024. 15:28 Method Of Arrival: Wheelchair hb 15:28 Acuity: TYSON 3 hb Triage Assessment: 15:52 General: Appears in no apparent distress. Respiratory: Reports shortness of breath at le1 rest Onset: The symptoms/episode began/occurred today, the patient has mild shortness of breath. Historical: - Allergies: 15:30 Augmentin; hb 15:30 Cipro; hb 15:30 Keppra; hb - PMHx: 15:30 Kidney failure stage 4; Low HR; Hypertension; High Cholesterol; Atrial Fib; Anxiety; hb CHF; Diabetes - IDDM; Myocardial infarction; neuropathy; Seizures; - PSHx: 15:30 carpal tunnel; Appendectomy; Hemorrhoidectomy; Pacemaker-Defib; hb - Immunization history:: Adult Immunizations up to date. - Infectious Disease History:: Denies. - Social history:: Smoking status: Patient denies any tobacco usage or history of. Screenin:52 [facility] ED Fall Risk Assessment (Adult) History of falling in the last 3 months, le1 including since admission No falls in past 3 months (0 pts) Confusion or Disorientation No (0 pts) Intoxicated or Sedated No (0 pts) Impaired Gait No (0 pts) Mobility Assist Device Used No (0 pt) Altered Elimination No (0 pt) Score/Fall Risk Level 0 - 2 = Low Risk Oriented to surroundings, Maintained a safe environment, Educated pt \T\ family on fall prevention, incl call for assistance when getting out of bed, Assessed \T\ reinforced patient's understanding of fall precautions. Abuse screen: Denies threats or abuse. Denies injuries from another. Nutritional screening: No deficits noted. Tuberculosis screening: No symptoms or risk factors identified. Assessment: 15:50 General: Appears in no apparent distress. comfortable, Behavior is calm, cooperative, le1 appropriate for age. Pain: Denies pain. Neuro: No deficits noted. Cardiovascular: Rhythm is A-V sequential pacer. Respiratory: Airway is patent Trachea midline Respiratory effort is even, unlabored, Respiratory pattern is regular, Breath sounds are clear bilaterally. GI: No deficits noted. : No deficits noted. EENT: No deficits noted. Derm: No deficits noted. Musculoskeletal: No deficits noted. 17:39 Reassessment: Patient appears in no apparent distress at this time. Patient and/or jb4 family updated on plan of care and expected duration. Pain level reassessed. Patient is alert, oriented x 3, equal unlabored respirations, skin warm/dry/pink. Pt placed on purewick per request due to lasix administration and hospitalization. 19:00 General: Appears comfortable, Behavior is calm, cooperative. Pain: Denies pain. Neuro: ha1 Level of Consciousness is awake, alert, obeys commands, Oriented to person, place, time, situation. Cardiovascular: Patient's skin is warm and dry. Respiratory: Airway is patent Respiratory effort is even, unlabored, Respiratory pattern is regular, symmetrical. Respiratory: Reports shortness of breath at rest on exertion. GI: No signs and/or symptoms were reported involving the gastrointestinal system. Abdomen is round obese. Derm: Skin is pink, warm \T\ dry. Musculoskeletal: Circulation, motion, and sensation intact. 20:00 Reassessment: Patient and/or family updated on plan of care and expected duration. Pain ha1 level reassessed. Patient is alert, oriented x 3, equal unlabored respirations, skin warm/dry/pink. 21:00 Reassessment: Patient and/or family updated on plan of care and expected duration. Pain ha1 level reassessed. Patient is alert, oriented x 3, equal unlabored respirations, skin warm/dry/pink. Vital Signs: 15:28 BP 108 / 79; Pulse 89; Resp 18; Temp 97.9(O); Pulse Ox 100% on R/A; hb 17:39 BP 119 / 78; Pulse 90; Resp 16; Pulse Ox 100% on R/A; jb4 18:28 BP 103 / 72; Pulse 89; Resp 20; Pulse Ox 100% on R/A; le1 20:00 BP 109 / 74; Pulse 91; Resp 19 S; Pulse Ox 98% on R/A; ha1 21:00 BP 112 / 72; Pulse 87; Resp 19 S; Pulse Ox 99% on R/A; ha1 ED Course: 15:05 Patient arrived in ED. mr 15:06 Jody Sampson MD is Attending Physician. sp3 15:20 Vic Hyman, RN is Primary Nurse. le1 15:30 Triage completed. hb 15:30 Arm band placed on. hb 15:35 EKG done, by ED staff, reviewed by Jody Sampson MD. le1 15:49 Initial lab(s) drawn, by ne, sent to lab. Inserted saline lock: 22 gauge in left le1 antecubital area, using aseptic technique. 15:52 Patient has correct armband on for positive identification. Bed in low position. Call le1 light in reach. Side rails up X2. Adult w/ patient. Provided Education on: Informed to use call light if needing assistance. . 16:22 XRAY Chest (1 view) In Process Unspecified. EDWY 16:54 Mina Peralta is Hospitalizing Provider. sp3 22:07 No provider procedures requiring assistance completed. Patient admitted, IV remains in dd2 place. Administered Medications: 17:39 Drug: Furosemide IVP 40 mg IVP once; give over 2 minutes Route: IVP; Site: left jb4 antecubital; 18:29 Follow up: Response: No adverse reaction le1 Medication: 22:08 VIS not applicable for this client. dd2 Outcome: 16:55 Decision to Hospitalize by Provider. sp3 22:08 Admitted to ER Hold. Please see [facility] for further documentation. dd2 22:08 Condition: stable 22:08 Instructed on the need for admit, Demonstrated understanding of instructions, 05/12 00:16 Patient left the ED. ha1 Signatures: Dispatcher [employer] EDW[place] Marisela Deleon, Reg Reg Jennifer French, RN RN hb Ej Mcmillan, RN RN jb4 Jody Sampson MD MD sp3 Dariana Mai, RN RN [email or web address] Vic Hyman, RN RN le1 JAMEEL QUINTANILLA, RN RN dd2
[2024-05-11] MEDS ORDERED: FUROSEMIDE 40 MG/4 ML VIAL ONE (17:19)
--- NOTE | 2024-05-11 17:22 | P.HP ---
Certification for Inpatient Patient admitted to: Observation With expected LOS: <2 Midnights Practitioner: I am a practitioner with admitting privileges, knowledge of patient current condition, hospital course, and medical plan of care. Services: Services provided to patient in accordance with Admission requirements found in Title 42 Section 412.3 of the Code of Federal Regulations Patient History Date of Service: 05/11/24 Reason for admission: CHF exacerbation History of Present Illness: Teena Simpson is a 79 year old female with Pmhx Combinded systolic/diastolic CHF, CKD stage 4, HTN, DM-IDDM, CAD, Afib, anxiety, seizures, neuropathy who presents to the ED with difficulty breathing and peripheral edema over the last three days. She reports, her lasix dose was decreased when she discharged on April 29 and now presents with BLE 3+ edema. On examination lung sounds clear, no acute distress, abdomen soft, conversing well. Daughter reports, Teena has follow up visits this week but did not feel she should wait and came to the ED. Laboratory evaluation significant for H&H 11/17, left shift neutrophils 73, sodium 134, BUN/creatinine 72/2.48, GFR 19, serum glucose 207, BNP 39,299 Chest x-ray reports "Stable central interstitial prominence, may reflect mild central congestion." Teena will be admitted to hospitalist service for treatment of CHF exacerbation. Allergies amoxicillin [From Augmentin] Adverse Reaction (Verified 11/09/22 14:41) Nausea/Vomiting ciprofloxacin Adverse Reaction (Verified 11/09/22 14:41) Nausea/Vomiting clavulanic acid [From Augmentin] Adverse Reaction (Verified 11/09/22 14:41) Nausea/Vomiting levetiracetam [From Keppra] Adverse Reaction (Verified 11/09/22 14:41) fast heart rate oxcarbazepine Adverse Reaction (Verified 11/09/22 14:41) fast heart beat Home Medications: Atorvastatin Calcium [Lipitor] 40 mg PO BEDTIME 08/07/21 Insulin NPH Human Isophane [Novolin N] 25 unit SQ SEECOM 06/30/23 Apixaban [Eliquis *] 2.5 mg PO BID 07/26/23 Clopidogrel Bisulfate [Plavix] 75 mg PO DAILY 07/26/23 carvediloL [Coreg*] 3.125 mg PO BID 6AM 6PM 30 Days #60 tab 07/30/23 PHENYTOIN ER Cap [Dilantin ER Cap*] 300 mg PO SEECOM 12/25/23 Albuterol Neb [Proventil 0.083% Neb Soln] 1 vial NEB PRN PRN 04/24/24 Ipratropium [place] 1 vial NEB PRN PRN 04/24/24 Amiodarone HCl [Cordarone*] 200 mg PO BID 30 Days #60 tab 04/29/24 Empagliflozin [Jardiance] 10 mg PO DAILY #30 tab 04/29/24 Furosemide [Lasix] 40 mg PO DAILY #60 tab 04/29/24 Hydrocodone 5/APAP 325 [[place] 5/325] 1 tab PO Q6H PRN #15 tab 04/29/24 Midodrine HCl [Proamatine*] 5 mg PO TID #90 tab 04/29/24 - Past Medical/Surgical History Diabetic: Yes -: Seizures -: Atrial fibrillation on chronic anticoagulation -: Diabetes mellitus type 2insulin-dependent -: Hypertension -: Hyperlipidemia -: Chronic systolic congestive heart failure -: CAD -: CKD 4 -: neuropathy -: Systolic CHF- EF 20-25% -: defibrilator -: PNA -: defib/pacemaker placement x2 -: exploratory lap -: appendectomy -: Hemorrhoidectomy -: cyst removal of arms and feet Psychosocial/ Personal History: Patient lives at home with family - Family History Father -: Hypertension, Lung disease Notes: Father passed from pneumonia Mother -: Heart disease, Hypertension, Diabetes Sister -: Diabetes Brother -: Diabetes, Kidney disease - Social History Alcohol use: No CD- Drugs: No Caffeine use: Yes Review of Systems Other: Per HPI Physical Examination - Physical Exam General: Alert, In no apparent distress, Oriented x3 HEENT: Atraumatic, Normocephalic Neck: 2+ carotid pulse no bruit, JVD not distended Respiratory: Clear to auscultation bilaterally, Normal air movement Cardiovascular: Normal pulses, Regular rate/rhythm Gastrointestinal: Normal bowel sounds, Soft and benign Musculoskeletal: No clubbing, Other (3+ BLE edema) Integumentary: No rashes Neurological: Normal speech, Normal tone - Studies Laboratory Data (last 24 hrs) 05/11/24 05/11/24 05/11/24 15:46 15:46 15:46 WBC 5.30 Hgb 9.9 L Hct 29.6 L Plt Count 289 PT 17.4 H INR 1.56 Sodium 134 L Potassium 4.2 BUN 72 H Creatinine 2.48 H Glucose 207 H Magnesium 2.5 H Total Bilirubin 0.4 AST 24 ALT 24 Alkaline Phosphatase 181 H Assessment and Plan - Plan Assessment and plan Combined systolic and diastolic congestive heart failure -Gentle diuresis -Strict I's and O's, daily weights -Consult cardiology -Continuous telemetry -Monitor electrolytes and replace as needed -Not requiring oxygen CKD stage IV Uremia -Consult Dr. Colvin -Gentle diuresis Proonged QT -hold medications that prolong QT -Repeat EKG if antiemetics are needed Anemia of chronic disease -Monitor H&H -Transfuse as needed Seizures -Seizure precautions -Continue home medication -Dilantin level Afib CAD HTN/HLD Neuropathy -continue home medications as appropriate DVT PPx heparin Full code LOS 24-hour abs Discharge Plan: Home Plan to discharge in: 24 Hours - Advance Directives Does patient have a Living Will: No Does patient have a Durable POA for Healthcare: No
[2024-05-11] MEDS: INSULIN REGULAR (HUMAN) 100 UNIT/ML SQ SCH (21:00)
[2024-05-12 00:19] VITALS: BMI 27.8
[2024-05-12] MEDS: ACETAMINOPHEN 325 MG TABLET PO PRN (00:35)
[2024-05-12] MEDS: ZOLPIDEM TARTRATE 5 MG TABLET PO PRN (02:26)
[2024-05-12 05:21] LABS: Absolute Eosinophils 0.3 K/uL (0-0.5); Absolute Lymphocytes (CBC) 0.9 K/uL (0.7-4.9); Absolute Monocytes 0.5 K/uL (0.1-1.3); Absolute Neutrophil 4.4 K/uL (1.8-8.0); Basophils % 0.7 % (0-1.3); Eosinophils % 4.3 % (0-4.4); Hematocrit 29.6 % (36.0-45.0); Hemoglobin 10.1 g/dL (12.0-15.0); Lymphocytes % 14.9 % (15.3-44.8); MCH 34.6 pg (27.0-35.0); MCHC 34.2 g/dL (32.0-36.0); MCV 101.4 fL (80-100); MPV 9.2 fL (7.6-11.3); Monocytes % 7.5 % (3.3-12.3); Neutrophils % 72.6 % (41.7-73.7); Nucleated Red Blood Cells % 0.1 % (0-0); Platelets 263 thou/uL (152-406); RBC Red Blood Cell Count 2.92 M/uL (3.86-4.86); Red Cell Distribution Width 14.9 % (12.1-15.2)
[2024-05-12] MEDS: FUROSEMIDE 40 MG/4 ML VIAL IV SCH (05:49)
[2024-05-12 05:51] LABS: ALT/SGPT 24 U/L (13-56); AST/SGOT 22 U/L (15-37); Albumin/Globulin Ratio 0.8 (1.1-1.8); Alkaline Phosphatase 166 U/L (45-117); Anion Gap 10.6 mEq/L (5.0-15.0); BUN Blood Urea Nitrogen 70 mg/dL (7-18); Bicarbonate 26 mEq/L (21-32); Bilirubin Total 0.5 mg/dL (0.2-1.0); Glomerular Filtration Rate 20 ml/min (=/>90); Glucose Level 175 mg/dL (74-106); Magnesium 2.4 mg/dL (1.6-2.4); Phosphorus 4.1 mg/dL (2.5-4.9); Potassium 3.6 mEq/L (3.5-5.1); Sodium Level 137 mEq/L (136-145)
[2024-05-12 06:02] LABS: Phenytoin (Dilantin) Level ND mcg/mL (10.0-20.0)
[2024-05-12 06:58] LABS: Sqamous Epithelial <5 /HPF (None Seen); Transitional Epithelial <5 /HPF (None Seen); Urine Bacteria >50 /HPF (<20); Urine Bilirubin NEGATIVE (Negative); Urine Blood 2+ (Negative); Urine Clarity Extremely Turbid (Clear); Urine Color Light-Yellow (Yellow); Urine Culture Reflex Order REFLEXED; Urine Glucose NEGATIVE (Negative); Urine Ketones NEGATIVE (Negative); Urine Microscopic Reflex YN ORDER UMIC; Urine Mucus Slight /HPF (None Seen); Urine Nitrite NEGATIVE (Negative); Urine Protein TRACE (Negative); Urine Urobilinogen Normal (Normal); Urine WBC >50 /HPF (<5)
[2024-05-12] MEDS: POTASSIUM CL SA 10 MEQ TAB PO ONE (09:30)
[2024-05-12] MEDS ORDERED: ALBUTEROL 2.5 MG/3 ML NEB SOL NEB PRN (09:47)
[2024-05-12] MEDS ORDERED: IPRATROPIUM BROM 0.5MG/2.5ML NEB PRN (09:47)
[2024-05-12] MEDS ORDERED: PHENYTOIN ER 100 MG CAP PO SCH (10:00)
--- NOTE | 2024-05-12 10:43 | P.CNS ---
Date of Consult: 05/12/24 Chief Complaint: CHF exacerbation History of Present Illness: Patient with PMH of CAD s/p LM/LAD/LCX PCI, heart failure reduced EF, AF, presented with right arm pain that has been going on for some time, denies chest pain, no palpitations, no syncope, also report KELLEY and SOB with lower extremities edema. Allergies amoxicillin [From Augmentin] Adverse Reaction (Verified 05/12/24 00:19) Nausea/Vomiting ciprofloxacin Adverse Reaction (Verified 05/12/24 00:19) Nausea/Vomiting clavulanic acid [From Augmentin] Adverse Reaction (Verified 05/12/24 00:19) Nausea/Vomiting levetiracetam [From Keppra] Adverse Reaction (Verified 05/12/24 00:19) fast heart rate oxcarbazepine Adverse Reaction (Verified 05/12/24 00:19) fast heart beat Home medications list reviewed: Yes Home Medications: Atorvastatin Calcium [Lipitor] 40 mg PO BEDTIME 08/07/21 Insulin NPH Human Isophane [Novolin N] 25 unit SQ SEECOM 06/30/23 Apixaban [Eliquis *] 2.5 mg PO BID 07/26/23 Clopidogrel Bisulfate [Plavix] 75 mg PO DAILY 07/26/23 carvediloL [Coreg*] 3.125 mg PO BID 6AM 6PM 30 Days #60 tab 07/30/23 PHENYTOIN ER Cap [Dilantin ER Cap*] 300 mg PO SEECOM 12/25/23 Albuterol Neb [Proventil 0.083% Neb Soln] 1 vial NEB PRN PRN 04/24/24 Ipratropium [place] 1 vial NEB PRN PRN 04/24/24 Amiodarone HCl [Cordarone*] 200 mg PO BID 30 Days #60 tab 04/29/24 Empagliflozin [Jardiance] 10 mg PO DAILY #30 tab 04/29/24 Furosemide [Lasix] 40 mg PO DAILY #60 tab 04/29/24 Hydrocodone 5/APAP 325 [[place] 5/325] 1 tab PO Q6H PRN #15 tab 04/29/24 Midodrine HCl [Proamatine*] 5 mg PO TID #90 tab 04/29/24 - Past Medical/Surgical History Diabetic: Yes -: Seizures -: Atrial fibrillation on chronic anticoagulation -: Diabetes mellitus type 2insulin-dependent -: Hypertension -: Hyperlipidemia -: Chronic systolic congestive heart failure -: CAD -: CKD 4 -: neuropathy -: Systolic CHF- EF 20-25% -: defibrilator -: PNA -: defib/pacemaker placement x2 -: exploratory lap -: appendectomy -: Hemorrhoidectomy -: cyst removal of arms and feet Psychosocial/ Personal History: Patient lives at home with family - Family History Father Medical History: Hypertension, Lung disease Notes: Father passed from pneumonia Mother Medical History: Heart disease, Hypertension, Diabetes Sister Medical History: Diabetes Brother Medical History: Diabetes, Kidney disease - Social History Smoking Status: Unknown if ever smoked Alcohol use: No CD- Drugs: No Caffeine use: No Place of Residence: Home Review of Systems 10-point ROS is otherwise unremarkable Physical Examination Temp Pulse Resp BP Pulse Ox 97.5 F 89 22 H 119/70 98 05/12/24 08:00 05/12/24 09:30 05/12/24 08:00 05/12/24 09:30 05/12/24 08:00 General: Alert, In no apparent distress HEENT: Atraumatic, PERRLA, Mucous membr. moist/pink, EOMI, Sclerae nonicteric Neck: Supple, 2+ carotid pulse no bruit, No LAD, Without JVD or thyroid abnormality Respiratory: Clear to auscultation bilaterally, Normal air movement Cardiovascular: Regular rate/rhythm, Normal S1 S2 Gastrointestinal: Normal bowel sounds, No tenderness Musculoskeletal: No tenderness Integumentary: No rashes Neurological: Normal gait, Normal speech, Normal tone, Normal affect Lymphatics: No axilla or inguinal lymphadenopathy Laboratory Data (last 24 hrs) 05/11/24 05/11/24 05/11/24 15:46 15:46 15:46 WBC 5.30 Hgb 9.9 L Hct 29.6 L Plt Count 289 PT 17.4 H INR 1.56 Sodium 134 L Potassium 4.2 BUN 72 H Creatinine 2.48 H Glucose 207 H Magnesium 2.5 H Total Bilirubin 0.4 AST 24 ALT 24 Alkaline Phosphatase 181 H - Problems (1) Acute on chronic systolic heart failure Current Visit: No Status: Acute Plan: continue Lasix 40 mg IV BID continue coreg 3.125 mg po BID Continue to monitor input and output and electrolytes. (2) Atrial fibrillation Current Visit: No Status: Chronic Plan: patient tele shows that she is paced. continue amiodarone 200 mg po BID Continue coreg continue Eliquis. Qualifiers: (3) Coronary artery disease Current Visit: No Status: Chronic Plan: patient is s/p recent complex PCI of LM/LAD/LCX bifurcation continue Plavix 75 mg daily continue Lipitor 40 mg daily Qualifiers:
[2024-05-12] MEDS: PHENYTOIN ER 100 MG CAP PO SCH ×2 (11:31→20:16)
--- NOTE | 2024-05-12 12:02 | EKG ---
Test Date: 2024-05-11 Test Time: 15:35:28 [employer]er: GILLIAN MEASUREMENT RESULTS: Intervals: Rate: 89 TN: QRSD: 198 QT: 500 QTc: 608 [place]: P: TN: QRS: 261 T: 103 INTERPRETIVE STATEMENTS: AV dual-paced rhythm with occasional ventricular-paced complexes Biventricular pacemaker detected Abnormal ECG Compared to ECG 04/27/2024 07:48:06 No significant changes Electronically Signed On 05-12-24 11:59:36 CDT by Arden Garza
[2024-05-12] MEDS: IPRATROPIUM BROM 0.5MG/2.5ML NEB PRN (13:43)
[2024-05-12] MEDS: ALBUTEROL 2.5 MG/3 ML NEB SOL NEB PRN (13:43)
--- NOTE | 2024-05-12 14:19 | P.PN ---
Date of Service: 05/12/24 Subjective awake, reports feeling better, edema to BLE decreased We will continue diuresis No new complaints ROS 10 point ROS as noted above, otherwise negative Physical Exam General: Alert and Oriented x3, NAD HEENT: Atraumatic, Normocephalic Neck: 2+ carotid pulse no bruit, JVD not distended Respiratory: Clear BBS, Normal air movement, on RA Cardiovascular: Normal pulses, Regular rate/rhythm Gastrointestinal: Normal bowel sounds, Soft on palpation Musculoskeletal: No clubbing, Other (3+ BLE edema) Integumentary: No rashes Neurological: Normal speech, Normal tone Vitals Reviewed Problem list Acute on chronic Systolic heart failure CKD stage IV Uremia Prolonged QT Anemia of chronic disease Seizures Afib CAD HTN/HLD Neuropathy Assessment and Plan Acute on chronic Systolic heart failure -Gentle diuresis -Strict I's and O's, daily weights -Consult cardiology, recommends Lasix 40 IV BID, coreg, amiodarone BID, eliquis, plavix, and lipitor -Lasix 40 IV BID -Continuous telemetry -Monitor electrolytes and replace as needed -Not requiring oxygen CKD stage IV Uremia -Consult Dr. Colvin -Gentle diuresis -BUN/creatinine at baseline Prolonged QT -hold medications that prolong QT -Repeat EKG if antiemetics are needed Anemia of chronic disease -Monitor H&H, stable -Transfuse as needed Seizures -Seizure precautions -Continue home medication -Dilantin level pending Afib CAD HTN/HLD Neuropathy -continue home medications as appropriate DVT PPx heparin Full code LOS 24-hour abs Discharge Plan: Home Plan to discharge in:
[2024-05-12] MEDS: MIDODRINE HCL 5 MG TABLET PO SCH (14:26)
[2024-05-12] MEDS: carvediloL 3.125 MG TAB PO SCH (17:08)
[2024-05-12] MEDS: ATORVASTATIN 40 MG TAB PO SCH (20:16)
[2024-05-12] MEDS: APIXABAN 2.5 MG TABLET PO SCH (20:16)
[2024-05-12] MEDS: AMIODARONE HCL 200 MG TAB PO SCH (20:16)
--- NOTE | 2024-05-13 02:58 | CON ---
Date of Consultation: 05/12/2024 Chief Complaint: Congestive heart failure exacerbation, shortness of breath. History Of Present Illness: The patient is a 79-year-old female with past medical history of chronic kidney disease, stage 4; cardiorenal syndrome; systolic and diastolic congestive heart failure. She is admitted for congestive heart failure exacerbation. She was found to have acute on chronic kidne y injury. There is high BUN and creatinine ratio. The patient is on diuretics. The patient had dif ficulty breathing and had peripheral edema 3 days prior to this admission. She was taking Lasix and Lasix dose was recently decreased because of acute kidney injury, patient although was euvolemic at t hat time. The patient is admitted for congestive heart failure exacerbation. The patient has combin ed systolic and diastolic congestive heart failure. Cardiac workup is started and Cardiology was con sulted. The patient denies lower urinary tract symptoms. Review of Systems: Constitutional: Denies fevers, chills. Eyes: Denies vision changes. Ears, Nose, Mouth, and Throat: Denies sore throat, earache. Respiratory: Shortness of breath with activities and at rest. Cardiovascular: Denies chest pain, syncope. GI: Denies nausea, vomiting. : Denies dysuria, hematuria. Extremities: Has edema in both legs. Has peripheral neuropathy. Denies weakness. All other systems reviewed and all are negative. Past Medical History: Diabetes mellitus; seizure; atrial fibrillation, on chronic anticoagulation; d iabetes mellitus with renal manifestation; cardiorenal syndrome; hypertension; hyperlipidemia; chroni c systolic congestive heart failure and diastolic congestive heart failure; coronary artery disease; chronic kidney disease, stage 4; systolic congestive heart failure, ejection fraction 20% to 25%, ___ defibrillator, pacemaker placement ; exploratory laparotomy; appendectomy; hemorrho idectomy; cyst removal from the arm and . Family History: Father, lung disease, pneumonia. Father passed from pneumonia. Mom with heart dise ase, hypertension, diabetes. Sister, diabetes. Brother, diabetes, kidney disease. Social History: Denies alcohol. Denies drugs. Denies caffeine. Physical Examination: General: Alert, not in any apparent distress. Oriented x3. HEENT: Atraumatic, normocephalic. Neck: Supple. No bruits. No JVD. Respiratory: Crackles bilateral bases. Cardiovascular: S1. No pericardial friction rub. Abdomen: Soft, benign. No rebound. No guarding. Extremities: No clubbing, no cyanosis. 3+ edema bilaterally present. Neurological: Normal speech. Laboratory Data: WBC 5.3, hemoglobin 9.9, hematocrit 29.6, platelet count 289,000. Sodium 134, pota ssium 4.2, BUN 72, creatinine 2.48, glucose 207. Magnesium 2.5. AST 24, ALT 24. Impression And Plan: Combined congestive heart failure; systolic and diastolic dysfunction, severe s ystolic dysfunction; hypertension; hypertensive heart and kidney disease; diabetes mellitus with ceci l manifestation; chronic kidney disease, 4; elevated BUN and creatinine ratio; acute kidney injury. Continue diuretic and re-evaluate renal panel. The patient may require dialysis in near future, alth ough at this point, patient will require diuretic therapy for congestive heart failure and cardiorena l syndrome. 1. Seizure. Medication according to the primary team. Monitor free Dilantin level. 2. Atrial fibrillation, coronary artery disease. Recommend Cardiology consultation. 3. Hypertension, hyperlipidemia. Continue medication for cholesterol control. 4. Anemia of chronic kidney disease. Monitor hemoglobin level. Adjust BENJAMIN according to lab results. 5. Renal osteodystrophy. Monitor phosphorus level and start binders according to lab results. MANOJ/CAMERON Voice ID: [id number] Report ID: [id number]
[2024-05-13 05:41] LABS: Anion Gap 10.7 mEq/L (5.0-15.0); Potassium 3.7 mEq/L (3.5-5.1)
[2024-05-13] MEDS ORDERED: PHENYTOIN ER 100 MG CAP PO SCH (09:00)
[2024-05-13] MEDS ORDERED: HOME MED 1 EA UNK (Empagliflozin [Jardiance] 10 MG Tablet) PO SCH (09:00)
[2024-05-13] MEDS: POTASSIUM CL SA 10 MEQ TAB PO ONE (09:28)
[2024-05-13] MEDS: CLOPIDOGREL 75 MG TABLET PO SCH (09:28)
--- NOTE | 2024-05-13 12:59 | P.PN ---
Subjective Date of Service: 05/13/24 Chief Complaint: CHF exacerbation Subjective: No new changes, No C/O voiced, Tolerating diet, Ambulating, Improving Review of Systems 10-point ROS is otherwise unremarkable Physical Examination - Vital Signs Temperature: 99.6 F Blood Pressure: 114/63 Pulse: 90 Respirations: 16 Pulse Ox (%): 95 - Physical Exam General: Alert, In no apparent distress HEENT: Atraumatic, PERRLA, EOMI Neck: Supple, JVD not distended Respiratory: Clear to auscultation bilaterally, Normal air movement Cardiovascular: Regular rate/rhythm, Normal S1 S2 Gastrointestinal: Normal bowel sounds, No tenderness Musculoskeletal: No tenderness Integumentary: No rashes Neurological: Normal speech, Normal tone, Normal affect Lymphatics: No axilla or inguinal lymphadenopathy - Studies Medications List Reviewed: Yes Assessment And Plan - Current Problems (Diagnosis) (1) Acute on chronic systolic heart failure Current Visit: No Status: Acute Plan: continue Lasix 40 mg IV BID continue coreg 3.125 mg po BID add aldactone 25 mg daily add Farxiga 10 mg daily on discharge. Continue to monitor input and output and electrolytes. (2) Atrial fibrillation Current Visit: No Status: Chronic Plan: patient tele shows that she is paced. continue amiodarone 200 mg po BID Continue coreg continue Eliquis. Qualifiers: (3) Coronary artery disease Current Visit: No Status: Chronic Plan: patient is s/p recent complex PCI of LM/LAD/LCX bifurcation continue Plavix 75 mg daily continue Lipitor 40 mg daily Qualifiers:
[2024-05-13] MEDS ORDERED: IPRATROPIUM BROM 0.5MG/2.5ML NEB PRN (13:45)
[2024-05-13] MEDS ORDERED: ALBUTEROL 2.5 MG/3 ML NEB SOL NEB PRN (13:45)
--- NOTE | 2024-05-13 14:12 | P.PN ---
Date of Service: 05/13/24 Subjective awake, reports feeling better, edema to BLE decreased No new complaints No acute events overnight ROS 10 point ROS as noted above, otherwise negative Physical Exam General: Alert and Oriented x3, NAD HEENT: Atraumatic, Normocephalic Neck: 2+ carotid pulse no bruit, JVD not distended Respiratory: Clear BBS, Normal air movement, on RA Cardiovascular: Normal pulses, Regular rate/rhythm Gastrointestinal: Normal bowel sounds, Soft on palpation Musculoskeletal: No clubbing, Other (1+ BLE edema) Integumentary: No rashes Neurological: Normal speech, Normal tone Vitals Reviewed Problem list Acute on chronic Systolic heart failure CKD stage IV Uremia Prolonged QT Anemia of chronic disease Seizures Afib CAD HTN/HLD Neuropathy Assessment and Plan Acute on chronic Systolic heart failure -Gentle diuresis -Strict I's and O's, daily weights -Cardiology/nephrology agree on Lasix p.o. 80 mg daily and 25 mg p.o. spironolactone daily -Possible DC in morning -Continuous telemetry -Monitor electrolytes and replace as needed -Not requiring oxygen CKD stage IV Uremia -Consult Dr. Colvin -Gentle diuresis -BUN/creatinine at baseline Prolonged QT -hold medications that prolong QT -Repeat EKG if antiemetics are needed Anemia of chronic disease -Monitor H&H, stable -Transfuse as needed Seizures -Seizure precautions -Continue home medication -Dilantin level pending Afib CAD HTN/HLD Neuropathy -continue home medications as appropriate DVT PPx heparin Full code 1-2 days Discharge Plan: Home Plan to discharge in:
--- NOTE | 2024-05-13 18:28 | PN ---
Date of Progress Note: 05/13/2024 Subjective: The patient was admitted with anasarca, shortness of breath, overvolume with acute kidney injury. The patient has been diuresed over the night. Blood pressure stays stable. Physical Examination: Vital Signs: Blood pressure 114/63, pulse of 90, afebrile. Chest: Clear to auscultation. Heart: S1, S2. Regular. Abdomen: Soft, nontender. Extremities: Trace edema. Neurologic: Alert. No focality. No tremor. Current Medications: The patient on include: 1. Eliquis. 2. Plavix. 3. Amiodarone. 4. Atorvastatin. 5. Carvedilol 3.125 b.i.d. 6. Dilantin. 7. Ambien. 8. Lasix. 9. KCl. Laboratory Data: WBC 6.1, hemoglobin 10.1. Sodium 137, potassium 3.7, bicarb 25, BUN 69, creatinine 2.2. Calcium 8.3. Assessment And Plan: 1. Acute kidney injury on chronic kidney disease, back to baseline. I am going to go ahead and change Lasix to oral 80 mg daily, and we will monitor the patient. I had long discussion with the patient about monitoring daily weight and her edema and adjust her dose of Lasix depending on that. The patient and family verbalized understanding. 2. Hypertension. Continue to utilize blood pressure for more diuresis. 3. Anasarca secondary to cardiorenal, resolved. Continue current diuresis dose. Switch to oral. 4. Marginal hypokalemia. We will monitor. 5. Congestive heart failure with cardiorenal syndrome. As above, we will optimize fluid status for the patient. 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
[2024-05-13 23:38] VITALS: O2SAT 96
[2024-05-14 04:59] LABS: Hematocrit 29.8 % (36.0-45.0); Hemoglobin 10.3 g/dL (12.0-15.0); MCHC 34.5 g/dL (32.0-36.0); MCV 101.5 fL (80-100); MPV 9.8 fL (7.6-11.3); Platelets 269 thou/uL (152-406); RBC Red Blood Cell Count 2.94 M/uL (3.86-4.86)
[2024-05-14 05:22] LABS: Anion Gap 12.6 mEq/L (5.0-15.0); Potassium 4.6 mEq/L (3.5-5.1)
[2024-05-14 08:41] VITALS: BP 102/65; TEMP 97.8
[2024-05-14] MEDS ORDERED: SPIRONOLACTONE 25 MG TABLET PO SCH (09:00)
[2024-05-14] MEDS: SPIRONOLACTONE 25 MG TABLET PO SCH (09:25)
[2024-05-14] MEDS: FUROSEMIDE 40 MG TABLET PO SCH (09:26)
--- NOTE | 2024-05-14 10:37 | P.PN ---
Subjective Date of Service: 05/14/24 Chief Complaint: CHF exacerbation Subjective: No new changes, No C/O voiced, Tolerating diet, Ambulating, Improving Review of Systems 10-point ROS is otherwise unremarkable Physical Examination - Vital Signs Temperature: 97.8 F Blood Pressure: 102/65 Pulse: 90 Respirations: 16 Pulse Ox (%): 92 - Physical Exam General: Alert, In no apparent distress HEENT: Atraumatic, PERRLA, EOMI Neck: Supple, JVD not distended Respiratory: Clear to auscultation bilaterally, Normal air movement Cardiovascular: Regular rate/rhythm, Normal S1 S2 Gastrointestinal: Normal bowel sounds, No tenderness Musculoskeletal: No tenderness Integumentary: No rashes Neurological: Normal speech, Normal tone, Normal affect Lymphatics: No axilla or inguinal lymphadenopathy - Studies Microbiology Data (last 24 hrs): 05/12/24 06:29 Clean Catch Urine [place] Count - Final >100,000 CFU/ML. 05/12/24 06:29 Clean Catch Urine - Final Escherichia Coli Medications List Reviewed: Yes Assessment And Plan - Current Problems (Diagnosis) (1) Acute on chronic systolic heart failure Current Visit: No Status: Acute Plan: continue Lasix 80 mg daily continue coreg 3.125 mg po BID add aldactone 12.5 mg daily add Farxiga 10 mg daily on discharge. Continue to monitor input and output and electrolytes. (2) Atrial fibrillation Current Visit: No Status: Chronic Plan: patient tele shows that she is paced. continue amiodarone 200 mg po BID Continue coreg continue Eliquis. Qualifiers: (3) Coronary artery disease Current Visit: No Status: Chronic Plan: patient is s/p recent complex PCI of LM/LAD/LCX bifurcation continue Plavix 75 mg daily continue Lipitor 40 mg daily Qualifiers:
--- NOTE | 2024-05-14 11:50 | PN ---
Date of Progress Note: 05/14/2024 Subjective: The patient was admitted to the hospital with acute kidney injury secondary to cardioren al, over volume. We adjusted the Lasix. The patient is diuresing very well. Yesterday, she was sta rted on spironolactone. The patient is feeling well. Physical Examination: Vital Signs: Blood pressure 102/65, pulse of 69, afebrile. The patient had urine output of 2800. Chest: Clear to auscultation. Heart: S1, S2. Regular. Systolic murmur. Abdomen: Soft, nontender. Extremities: Trace edema. Neurologic: Alert. No focality. Laboratory Data: WBC 6.2, hemoglobin 10.3. Sodium 135, potassium 4.6, bicarb 25, BUN 67, creatinine 2.3, calcium 8.3. Current Medications: The patient is on include: 1. Lasix 80. 2. Spironolactone 25. 3. Tylenol. 4. Pantoprazole. 5. Eliquis. 6. Amiodarone. 7. Insulin. 8. Breathing treatment. 9. Cefdinir. Assessment And Plan: 1. 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 Stabl e, on baseline. Continue current diuresis dose, Lasix 80 and spironolactone. The patient cleared fr om the renal standpoint for discharge planning. 2. Hypertension, controlled, optimal. Continue current treatment. 3. Urinary tract infection. Continue cefdinir. 4. Congestive heart failure with exacerbation as above. MARCELLA/CAMERON Voice ID: [id number] Report ID: [id number]
--- NOTE | 2024-05-14 14:23 | P.DS ---
Admission Date: 05/12/24 Discharge Date: 05/14/24 Disposition: ROUTINE DISCHARGE Discharge Condition: GOOD Reason for Admission: CHF exacerbation Brief History of Present Illness: Teena Simpson is a 79 year old female with Pmhx Combinded systolic/diastolic CHF, CKD stage 4, HTN, DM-IDDM, CAD, Afib, anxiety, seizures, neuropathy who presents to the ED with difficulty breathing and peripheral edema over the last three days. She reports, her lasix dose was decreased when she discharged on April 29 and now presents with BLE 3+ edema. On examination lung sounds clear, no acute distress, abdomen soft, conversing well. Daughter reports, Teena has follow up visits this week but did not feel she should wait and came to the ED. Laboratory evaluation significant for H&H 11/17, left shift neutrophils 73, sodium 134, BUN/creatinine 72/2.48, GFR 19, serum glucose 207, BNP 39,299 Chest x-ray reports "Stable central interstitial prominence, may reflect mild central congestion." Teena will be admitted to hospitalist service for treatment of CHF exacerbation. Hospital Course: Problem list Acute on chronic Systolic heart failure CKD stage IV Uremia Prolonged QT Anemia of chronic disease Seizures Afib CAD HTN/HLD Neuropathy Patient was admitted to the hospital for acute exacerbation, lower extremity edema. She had recently had her dose of oral Lasix reduced from 40 mg twice daily to 40 mg once daily. She also has CKD. She is seen by nephrology and cardiology recommend increasing Lasix to 80 mg p.o. daily, the addition of spironolactone 12.5 mg daily with hold parameters. She diuresed well during hospitalization as much less lower extremity edema and is breathing well on room air. Her urine culture did grow E. coli which was pansensitive, bipolar, has been within normal limits although she has been running temps in the 99 range, will treat this as suspected UTI. Medication changes as follows Lasix to be increased to 80 mg once daily Addition of spironolactone 12.5 mg daily-do not take if top number on blood pressure is less than 100 Cefdinir-an antibiotic for 7 days Continue other home medications as previously prescribed Follow-up with your primary care doctor, nephrologyDr. Colvin and cardiologyDr. Garza in 1 to 2 weeks Vital Signs/Physical Exam: Temp Pulse Resp BP Pulse Ox 97.8 F 90 16 102/65 92 05/14/24 10:37 05/14/24 10:37 05/14/24 10:37 05/14/24 10:37 05/14/24 10:37 General: Alert, In no apparent distress, Oriented x3 HEENT: Atraumatic, PERRLA Neck: Supple, JVD not distended Respiratory: Clear to auscultation bilaterally, Normal air movement Cardiovascular: Regular rate/rhythm, Normal S1 S2 Gastrointestinal: Normal bowel sounds, No tenderness Musculoskeletal: No tenderness Integumentary: No rashes Neurological: Normal speech, Normal affect Laboratory Data at Discharge: WBC 6.20 thou/uL (4.3-10.9) 05/14/24 04:30 Hgb 10.3 g/dL (12.0-15.0) L 05/14/24 04:30 Hct 29.8 % (36.0-45.0) L 05/14/24 04:30 Plt Count 269 thou/uL (152-406) 05/14/24 04:30 PT 17.4 SECONDS (10-13.0) H 05/11/24 15:46 INR 1.56 05/11/24 15:46 Sodium 135 mEq/L (136-145) L 05/14/24 04:30 Potassium 4.6 mEq/L (3.5-5.1) D 05/14/24 04:30 BUN 67 mg/dL (7-18) H 05/14/24 04:30 Creatinine 2.36 mg/dL (0.55-1.02) H 05/14/24 04:30 Glucose 201 mg/dL (74-106) H 05/14/24 04:30 Phosphorus 4.1 mg/dL (2.5-4.9) 05/12/24 05:06 Magnesium 2.4 mg/dL (1.6-2.4) 05/12/24 05:06 Total Bilirubin 0.5 mg/dL (0.2-1.0) 05/12/24 05:06 AST 22 U/L (15-37) 05/12/24 05:06 ALT 24 U/L (13-56) 05/12/24 05:06 Alkaline Phosphatase 166 U/L (45-117) H 05/12/24 05:06 Home Medications: Atorvastatin Calcium [Lipitor] 40 mg PO BEDTIME 08/07/21 Insulin NPH Human Isophane [Novolin N] 25 unit SQ SEECOM 06/30/23 Apixaban [Eliquis *] 2.5 mg PO BID 07/26/23 Clopidogrel Bisulfate [Plavix] 75 mg PO DAILY 07/26/23 carvediloL [Coreg*] 3.125 mg PO BID 6AM 6PM 30 Days #60 tab 07/30/23 PHENYTOIN ER Cap [Dilantin ER Cap*] 300 mg PO SEECOM 12/25/23 Albuterol Neb [Proventil 0.083% Neb Soln] 1 vial NEB PRN PRN 04/24/24 Ipratropium [place] 1 vial NEB PRN PRN 04/24/24 Amiodarone HCl [Cordarone*] 200 mg PO BID 30 Days #60 tab 04/29/24 Empagliflozin [Jardiance] 10 mg PO DAILY #30 tab 04/29/24 Hydrocodone 5/APAP 325 [[place] 5/325*] 1 tab PO Q6H PRN #15 tab 04/29/24 Midodrine HCl [Proamatine*] 5 mg PO TID #90 tab 04/29/24 Cefdinir [Cefdinir*] 300 mg PO DAILY 7 Days #7 cap 05/14/24 Furosemide [Lasix] 80 mg PO DAILY #60 tab 05/14/24 Spironolactone [Aldactone*] 12.5 mg PO DAILY #30 tab 05/14/24 New Medications: Spironolactone [Aldactone*] 12.5 mg PO DAILY #30 tab Cefdinir [Cefdinir*] 300 mg PO DAILY 7 Days #7 cap Furosemide [Lasix] 80 mg PO DAILY #60 tab Physician Discharge Instructions: Patient was admitted to the hospital for acute exacerbation, lower extremity edema. She had recently had her dose of oral Lasix reduced from 40 mg twice daily to 40 mg once daily. She also has CKD. She is seen by nephrology and cardiology recommend increasing Lasix to 80 mg p.o. daily, the addition of spironolactone 12.5 mg daily with hold parameters. She diuresed well during hospitalization as much less lower extremity edema and is breathing well on room air. Her urine culture did grow E. coli which was pansensitive, bipolar, has been within normal limits although she has been running temps in the 99 range, will treat this as suspected UTI. Medication changes as follows Lasix to be increased to 80 mg once daily Addition of spironolactone 12.5 mg daily-do not take if top number on blood pressure is less than 100 Cefdinir-an antibiotic for 7 days Continue other home medications as previously prescribed Follow-up with your primary care doctor, nephrologyDrKaren Colvin and cardiologyDrKaren Garza in 1 to 2 weeks Diet: Renal Activity: Ad royal Followup: Tejal Colvin MD [ACTIVE - CAN ADMIT] - 1-2 Weeks Arden Garza MD [ACTIVE - CAN ADMIT] - 1-2 Weeks KERVIN COLON [Primary Care Provider] - 1-2 Weeks Time spent managing pt's care (in minutes): 45
== END 2024-05-14 11:15 | disposition home or self-care (01) | DRG 291 ==
LOC: ER 15:04 → ERHOLD 17:47 → 2ND 23:01 → OBSVTOIN 05-12 12:32
PROVIDERS: ADMIT Internal Medicine; ATTEND Hospitalist
DX: I13.0 Hypertensive heart and chronic kidney disease with heart failure and stage 1 through stage 4 chronic kidney disease, or unspecified chronic kidney disease (principal); I50.23 Acute on chronic systolic (congestive) heart failure; N18.4 Chronic kidney disease, stage 4 (severe); N30.00 Acute cystitis without hematuria; E11.22 Type 2 diabetes mellitus with diabetic chronic kidney disease; Z79.4 Long term (current) use of insulin; E78.5 Hyperlipidemia, unspecified; I48.91 Unspecified atrial fibrillation; I25.2 Old myocardial infarction; Z79.01 Long term (current) use of anticoagulants; G40.909 Epilepsy, unspecified, not intractable, without status epilepticus; I25.10 Atherosclerotic heart disease of native coronary artery without angina pectoris; Z98.61 Coronary angioplasty status; Z90.49 Acquired absence of other specified parts of digestive tract; F41.9 Anxiety disorder, unspecified; R94.31 Abnormal electrocardiogram [ECG] [EKG]; D63.1 Anemia in chronic kidney disease; Z95.810 Presence of automatic (implantable) cardiac defibrillator; B96.20 Unspecified Escherichia coli [E. coli] as the cause of diseases classified elsewhere
CPT/HCPCS: 36415; 71045; 80048; 80053; 80076; 80185; 81001; 82947; 83735; 83880; 84100; 84484; 85025; 85027; 85610; 87077; 87086; 87088; 87186; 87428; 93005; 94640; 96374; 97116; 97161; 97530; 99285; G0378; J1815; J1940; J7613; J7644

== ENCOUNTER 2024-05-19 19:57 | Inpatient (IN) | payer OTHER ==
[2024-05-19] MEDS ORDERED: FUROSEMIDE 40 MG/4 ML VIAL ONE (21:11)
--- NOTE | 2024-05-19 21:18 | RAD REPORT ---
EXAM: Chest Single View HISTORY: 79 years Female CHEST PAIN COMPARISON: 05/11/2024 FINDINGS: LUNGS/PLEURA: Similar prominence of the central pulmonary vasculature. No alveolar edema or consolida tive airspace disease. CARDIAC/MEDIASTINUM: Stable enlargement. UPPER ABDOMEN: No significant abnormality. BONES: No acute abnormality. LINES/TUBES/OTHER: Pacemaker/AICD. IMPRESSION: No significant change from prior. Chronic vascular congestion without tani alveolar edema or consoli dative airspace disease.
[2024-05-19 21:47] LABS: Absolute Eosinophils 0.1 K/uL (0-0.5); Absolute Lymphocytes (CBC) 0.9 K/uL (0.7-4.9); Absolute Monocytes 0.3 K/uL (0.1-1.3); Absolute Neutrophil 2.8 K/uL (1.8-8.0); Basophils % 0.7 % (0-1.3); Eosinophils % 3.1 % (0-4.4); Hematocrit 35.2 % (36.0-45.0); Hemoglobin 11.8 g/dL (12.0-15.0); Lymphocytes % 21.6 % (15.3-44.8); MCH 34.5 pg (27.0-35.0); MCHC 33.5 g/dL (32.0-36.0); MCV 103.1 fL (80-100); MPV 9.7 fL (7.6-11.3); Monocytes % 7.9 % (3.3-12.3); Neutrophils % 66.7 % (41.7-73.7); Nucleated Red Blood Cells % 0.4 % (0-0); Platelets 225 thou/uL (152-406); RBC Red Blood Cell Count 3.42 M/uL (3.86-4.86)
[2024-05-19 21:54] LABS: PT Prothrombin Time 17.8 SECONDS (10-13.0); Protime INR 1.6
[2024-05-19 22:06] LABS: Albumin/Globulin Ratio 0.9 (1.1-1.8); Anion Gap 11.1 mEq/L (5.0-15.0); Bilirubin Direct 0.4 mg/dL (0-0.2); Bilirubin Indirect, Calculated 0.3 mg/dL (0.2-0.8); Bilirubin Total 0.7 mg/dL (0.2-1.0); Globulin 4.5 g/dL (2.3-3.5); Magnesium 2.4 mg/dL (1.6-2.4); Potassium 4.1 mEq/L (3.5-5.1); Protein, Total 8.5 g/dL (6.4-8.2); Troponin High Sensitivity 35.5 pg/mL (<58.9)
--- NOTE | 2024-05-19 22:51 | EDPHYS ---
Physician Documentation [facility] Name: Teena Simpson Age: 79 yrs Sex: Female : 1945 Arrival Date: 05/19/2024 Time: 19:57 Bed 2 Private MD: ED Physician Jacky Casper HPI: 05/19 20:04 This 79 yrs old Female presents to ER via Unassigned with complaints of sp4 Shortness Of Breath. 05/20 20:23 79-year-old female presents to the emergency department with complaint of sp4 dyspnea. Patient has long history of CHF. Multiple admissions for prior CHF. Overall reports generalized weakness and feeling unwell. Bilateral lower extremity edema as well.. Historical: - Allergies: 05/19 20:35 Augmentin; jb4 20:35 Cipro; jb4 20:35 Keppra; jb4 20:35 oxcarbazepine; jb4 20:35 CLAVULANIC ACID; jb4 20:35 Amoxicillin; jb4 - PMHx: 20:35 Anxiety; CHF; neuropathy; High Cholesterol; Low HR; Kidney failure stage 4; Atrial Fib; jb4 Myocardial infarction; Hypertension; Diabetes - IDDM; Seizures; - PSHx: 20:35 Appendectomy; Hemorrhoidectomy; Pacemaker-Defib; carpal tunnel; jb4 - Immunization history:: Adult Immunizations up to date. - Infectious Disease History:: Denies. - Social history:: Smoking status: Patient denies any tobacco usage or history of. - Family history:: not pertinent. ROS: 05/20 20:23 Constitutional: Negative for fever, chills, and weight loss, positive shortness of sp4 breath, positive lower extremity edema, positive generalized weakness, positive dyspnea on exertion, negative for chest pain All other systems are negative, Exam: 20:23 Constitutional: Elderly female, no acute distress, bilateral lower extremity edema, sp4 signs of moderate physical deconditioning Head/Face: Normocephalic, atraumatic. Eyes: Pupils equal round and reactive to light, extra-ocular motions intact. Lids and lashes normal. Conjunctiva and sclera are not injected. Cornea within normal limits. Periorbital areas with no swelling, redness, or edema. ENT: Nares patent. No nasal discharge, no septal abnormalities noted. Tympanic membranes are normal and external auditory canals are clear. Oropharynx with no redness, swelling, or masses, exudates, or evidence of obstruction, uvula midline. Mucous membranes moist. Neck: Trachea midline, no thyromegaly or masses palpated, and no cervical lymphadenopathy. Supple, full range of motion without nuchal rigidity, or vertebral point tenderness. Positive jugular venous distention Chest/axilla: Normal chest wall appearance and motion. Nontender with no deformity. No lesions are appreciated. Cardiovascular: Regular rate and rhythm with a normal S1 and S2. No gallops, murmurs, or rubs. Normal PMI, positive for jugular venous distention no pulse deficits. Respiratory: Lungs have equal breath sounds bilaterally, clear to auscultation and percussion. No rales, rhonchi or wheezes noted. No increased work of breathing, no retractions or nasal flaring. Abdomen/GI: Soft, with normal bowel sounds. No distension or tympany. No guarding or rebound. No evidence of tenderness throughout. Back: No spinal tenderness. No costovertebral tenderness. Skin: Warm, dry with normal turgor. Normal color with no rashes, no lesions, and no evidence of cellulitis. MS/ Extremity: Pulses equal, no cyanosis. Neurovascular intact. Full, normal range of motion. Bilateral lower extremity edema 20:23 Neuro: Awake and alert, GCS 15, oriented to person, place, time, and situation. Cranial nerves II-XII grossly intact. Motor strength 5/5 in all extremities. Sensory grossly intact. Psych: Awake, alert, with orientation to person, place and time. Behavior, mood, and affect are within normal limits 20:25 ECG was reviewed by the Attending Physician. EG at 2105 reveals paced rhythm rate 89, sp4 AV dual paced rhythm. Vital Signs: 05/19 20:32 BP 101 / 64; Pulse 89; Resp 28; Temp 97.8(TE); Pulse Ox 100% on R/A; Weight 64.41 kg jb4 (R); Height 5 ft. 0 in. (R); Pain 3/10; 21:49 BP 107 / 74; Pulse 89; Resp 24 S; Pulse Ox 99% on R/A; lg3 23:24 BP 111 / 77; Pulse 80; Resp 19; Temp 97.8; Pulse Ox 100% ; Pain 0/10; bm8 05/20 00:44 BP 119 / 68; Pulse 90; Resp 20; Pulse Ox 99% on R/A; lg3 02:00 BP 117 / 71; Pulse 84; Resp 19 S; Pulse Ox 100% on R/A; lg3 05/19 20:32 Body Mass Index 27.73 (64.41 kg, 152.4 cm) jb4 05/19 20:32 Pain Scale: Adult jb4 23:24 Pain Scale: Adult bm8 [place] Coma Score: 05/19 23:24 Eye Response: spontaneous(4). Motor Response: obeys commands(6). Verbal Response: bm8 oriented(5). Total: 15. 05/20 20:23 Eye Response: spontaneous(4). Motor Response: obeys commands(6). Verbal Response: sp4 oriented(5). Total: 15. MDM: 05/19 20:05 Medical Screening Exam initiated sp4 22:44 ED course: HISTORY: 79 years Female CHEST PAIN COMPARISON: 05/11/2024 FINDINGS: sp4 LUNGS/PLEURA: Similar prominence of the central pulmonary vasculature. No alveolar edema or consolidative airspace disease. CARDIAC/MEDIASTINUM: Stable enlargement. UPPER ABDOMEN: No significant abnormality. BONES: No acute abnormality. LINES/TUBES/OTHER: Pacemaker/AICD. IMPRESSION: No significant change from prior. Chronic vascular congestion without tani alveolar edema or consolidative airspace disease. . 05/20 20:26 Differential diagnosis: Anemia Anxiety Reaction asthma, Bronchitis CHF exacerbation, sp4 Chronic Obstructive Pulmonary Disease pneumonia. Data reviewed: vital signs, nurses notes, lab test result(s), EKG, radiologic studies, plain films. Consideration of Admission/Observation Patient was admitted/placed on observation. Escalation of care including admission/observation considered. Management of patient was discussed with the following: Hospitalist: Edgar SQUIRES . 05/19 20:05 Order name: Basic Metabolic Panel; Complete Time: 22:41 sp4 05/19 20:05 Order name: CBC with Diff; Complete Time: 22:41 sp4 05/19 20:05 Order name: LFT's; Complete Time: 22:41 sp4 05/19 20:05 Order name: Magnesium; Complete Time: 22:41 sp4 05/19 20:05 Order name: NT PRO-BNP; Complete Time: 22:41 sp4 05/19 20:05 Order name: PT-INR; Complete Time: 22:41 sp4 05/19 20:05 Order name: Troponin HS; Complete Time: 22:41 sp4 05/20 01:05 Order name: Creatine Phosphokinase EDMS 05/20 01:05 Order name: Urinalysis w/ reflexes EDMS 05/20 01:05 Order name: CBC with Automated Diff EDMS 05/20 01:05 Order name: CBC with Automated Diff EDMS 05/20 01:05 Order name: Comprehensive Metabolic Panel EDMS 05/20 01:05 Order name: Comprehensive Metabolic Panel EDMS 05/20 01:05 Order name: Magnesium EDMS 05/20 01:05 Order name: Magnesium EDMS 05/20 01:05 Order name: Phosphorus EDMS 05/20 01:05 Order name: Phosphorus EDMS 05/19 20:05 Order name: XRAY Chest (1 view); Complete Time: 22:41 sp4 05/19 23:51 Order name: CT Chest Abdomen Pelvis W/O Contrast cp 05/20 01:04 Order name: Physical Therapy Consult [facility] 05/19 20:05 Order name: Cardiac monitoring; Complete Time: 21:07 sp4 05/19 20:05 Order name: EKG - Nurse/Tech; Complete Time: 21:07 sp4 05/19 20:05 Order name: IV Saline Lock; Complete Time: 21:49 sp4 05/19 20:05 Order name: Labs collected and sent; Complete Time: 21:49 sp4 05/19 20:05 Order name: O2 Per Protocol; Complete Time: 21:08 sp4 05/19 20:05 Order name: O2 Sat Monitoring; Complete Time: 21:08 sp4 EC/31 21:05 Rate is 89 beats/min. Rhythm is regular, Paced. No ST changes noted. Clinical sp4 impression: No evidence of ischemia. Interpreted by me. Reviewed by me. Administered Medications: 21:48 Drug: Furosemide IVP 40 mg IVP once; give over 2 minutes Route: IVP; Site: left lg3 antecubital; 23:28 Follow up: Response: No adverse reaction bm8 Disposition: 05/20 20:26 Chart complete. sp4 Disposition Summary: 05/19/24 22:50 Hospitalization Ordered Notes: Hospitalization Status: Inpatient Admission sp4 Provider: Angel Hernández sp4 Location: Telemetry/MedSurg (Inpatient) sp4 Condition: Stable sp4 Problem: new sp4 Symptoms: have improved sp4 Bed/Room Type: Standard sp4 Room Assignment: 409(05/20/24 01:25) cg Diagnosis - Hepatic congestion, acute transaminitis sp4 - Acute on chronic systolic (congestive) heart failure sp4 Forms: - Medication Reconciliation Form sp4 - SBAR form sp4 - Leadership Thank You Letter sp4 Signatures: Dispatcher [employer] EDMS Jeanette Mckeon, RN RN cg Ej Mcmillan, RN RN jb4 Corry Nash RN RN lg3 Jacky Casper MD MD sp4 Charly Jhaveri RN bm8 Corrections: (The following items were deleted from the chart) 05/19 20:06 20:06 BASIC METABOLIC PANEL+C.LAB.BRZ ordered. EDMS EDMS 20:06 20:06 CBC+H.LAB.BRZ ordered. EDMS EDMS 20:06 20:06 HEPATIC FUNCTION+C.LAB.BRZ ordered. EDMS EDMS 20:06 20:06 MAGNESIUM+C.LAB.BRZ ordered. EDMS EDMS 20:06 20:06 PROBNP+C.LAB.BRZ ordered. EDMS EDMS 20:06 20:06 PROTIME (+INR)+COAG.LAB.BRZ ordered. EDMS EDMS 20:06 20:06 Troponin High Sensitivity+C.LAB.BRZ ordered. EDMS EDMS 20:06 20:06 Chest Single View+RAD.RAD.BRZ ordered. EDMS EDMS 05/20 01:25 05/19 22:50 sp4 cg
--- NOTE | 2024-05-19 22:51 | ER ---
Nurse's Notes [facility] Name: Teena Simpson Age: 79 yrs Sex: Female : 1945 Arrival Date: 05/19/2024 Time: 19:57 Bed 2 Private MD: Diagnosis: Hepatic congestion, acute transaminitis;Acute on chronic systolic (congestive) heart failure Presentation: 05/19 20:32 Chief complaint: Patient's son or daughter states: She has been short of breath since jb4 she got out of the hospital on the and it seems like her ankles and legs are swelling. Coronavirus screen: At this time, the client does not indicate any symptoms associated with coronavirus-19. Ebola Screen: No symptoms or risks identified at this time. Initial Sepsis Screen: Does the patient meet any 2 criteria? RR > 20 per min. Yes Does the patient have a suspected source of infection? No. Patient's initial sepsis screen is negative. Risk Assessment: Do you want to hurt yourself or someone else? Patient reports no desire to harm self or others. Onset of symptoms was May 14, 2024. Transition of care: patient was not received from another setting of care. 20:32 Method Of Arrival: Wheelchair jb4 20:32 Acuity: TYSON 3 jb4 Triage Assessment: 20:35 General: Appears in no apparent distress. comfortable, Behavior is calm, cooperative, jb4 appropriate for age. Pain: Complains of pain in right scapular area Pain does not radiate. Pain currently is 3 out of 10 on a pain scale. at worst was 8 out of 10 on a pain scale. Neuro: Level of Consciousness is awake, alert, obeys commands, Oriented to person, place, time, situation. Respiratory: Reports shortness of breath at rest on exertion Airway is patent Respiratory effort is even, unlabored, Respiratory pattern is symmetrical, tachypnea Onset: The symptoms/episode began/occurred gradually, the patient has mild shortness of breath. Derm: Skin is intact, Skin is dry, Skin is pale, Skin temperature is warm. Musculoskeletal: Circulation, motion, and sensation intact. Range of motion: intact in all extremities. Historical: - Allergies: 20:35 Augmentin; jb4 20:35 Cipro; jb4 20:35 Keppra; jb4 20:35 oxcarbazepine; jb4 20:35 CLAVULANIC ACID; jb4 20:35 Amoxicillin; jb4 - PMHx: 20:35 Anxiety; CHF; neuropathy; High Cholesterol; Low HR; Kidney failure stage 4; Atrial Fib; jb4 Myocardial infarction; Hypertension; Diabetes - IDDM; Seizures; - PSHx: 20:35 Appendectomy; Hemorrhoidectomy; Pacemaker-Defib; carpal tunnel; jb4 - Immunization history:: Adult Immunizations up to date. - Infectious Disease History:: Denies. - Social history:: Smoking status: Patient denies any tobacco usage or history of. - Family history:: not pertinent. Screenin:40 [facility] ED Fall Risk Assessment (Adult) History of falling in the last 3 months, jb4 including since admission Yes- single mechanical fall (1 pt) Confusion or Disorientation No (0 pts) Intoxicated or Sedated No (0 pts) Impaired Gait Yes (1 pt) Mobility Assist Device Used Yes (1 pt) Altered Elimination No (0 pt) Score/Fall Risk Level 3 or more points = High Risk Oriented to surroundings, Maintained a safe environment. Abuse screen: Denies threats or abuse. Nutritional screening: No deficits noted. Tuberculosis screening: No symptoms or risk factors identified. Assessment: 20:39 Reassessment: Pt reports being Roman Catholic, refuses blood products if needed. jb4 20:54 General: Appears in no apparent distress. comfortable, Behavior is calm, cooperative. lg3 Pain: Complains of pain in right scapular area, left rib area. Neuro: No deficits noted. Geller Agitation-Sedation Scale (RASS): 0 - Alert and Calm Level of Consciousness is awake, alert, obeys commands, Oriented to person, place, time, situation. Cardiovascular: No deficits noted. Reports shortness of breath, Denies chest pain, Heart tones S1 S2 present. Respiratory: Airway is patent Respiratory effort is even, shallow, Respiratory pattern is tachypnea Breath sounds with crackles bilaterally. GI: No deficits noted. No signs and/or symptoms were reported involving the gastrointestinal system. Abdomen is round non-distended, obese. : No signs and/or symptoms were reported regarding the genitourinary system. EENT: No deficits noted. No signs and/or symptoms were reported regarding the EENT system. Derm: No deficits noted. No signs and/or symptoms reported regarding the dermatologic system. Skin is intact, is healthy with good turgor, Skin is dry, Skin is normal, Skin temperature is warm. Musculoskeletal: No deficits noted. No signs and/or symptoms reported regarding the musculoskeletal system. Circulation, motion, and sensation intact. Range of motion: intact in all extremities. 21:07 Cardiovascular: Rhythm is A-V sequential pacer. lg3 21:49 Reassessment: Patient appears in no apparent distress at this time. No changes from lg3 previously documented assessment. Patient and/or family updated on plan of care and expected duration. Pain level reassessed. Patient is alert, oriented x 3, equal unlabored respirations, skin warm/dry/pink. 23:24 Reassessment: Patient appears in no apparent distress at this time. Patient and/or bm8 family updated on plan of care and expected duration. Pain level reassessed. Patient is alert, oriented x 3, equal unlabored respirations, skin warm/dry/pink. Patient denies pain at this time. Patient states feeling better. 05/20 00:44 Reassessment: Patient appears in no apparent distress at this time. No changes from lg3 previously documented assessment. Patient and/or family updated on plan of care and expected duration. Pain level reassessed. Patient is alert, oriented x 3, equal unlabored respirations, skin warm/dry/pink. Patient states feeling better. 02:00 Reassessment: Patient appears in no apparent distress at this time. No changes from lg3 previously documented assessment. Patient and/or family updated on plan of care and expected duration. Pain level reassessed. Patient is alert, oriented x 3, equal unlabored respirations, skin warm/dry/pink. Patient denies pain at this time. Patient states feeling better. Vital Signs: 05/19 20:32 BP 101 / 64; Pulse 89; Resp 28; Temp 97.8(TE); Pulse Ox 100% on R/A; Weight 64.41 kg jb4 (R); Height 5 ft. 0 in. (R); Pain 3/10; 21:49 BP 107 / 74; Pulse 89; Resp 24 S; Pulse Ox 99% on R/A; lg3 23:24 BP 111 / 77; Pulse 80; Resp 19; Temp 97.8; Pulse Ox 100% ; Pain 0/10; bm8 04 00:44 BP 119 / 68; Pulse 90; Resp 20; Pulse Ox 99% on R/A; lg3 02:00 BP 117 / 71; Pulse 84; Resp 19 S; Pulse Ox 100% on R/A; lg3 05/19 20:32 Body Mass Index 27.73 (64.41 kg, 152.4 cm) jb4 05/19 20:32 Pain Scale: Adult jb4 23:24 Pain Scale: Adult bm8 Isabel Coma Score: 05/19 23:24 Eye Response: spontaneous(4). Motor Response: obeys commands(6). Verbal Response: bm8 oriented(5). Total: 15. 05/20 20:23 Eye Response: spontaneous(4). Motor Response: obeys commands(6). Verbal Response: sp4 oriented(5). Total: 15. ED Course: 05/19 20:00 Patient arrived in ED. im 20:04 Jacky Casper MD is Attending Physician. sp4 20:32 Ej Mcmillan, RN is Primary Nurse. jb4 20:35 Triage completed. jb4 20:35 Arm band placed on. jb4 20:40 Patient has correct armband on for positive identification. Bed in low position. Call jb4 light in reach. Side rails up X 1. Provided Education on: plan of care. 20:40 No provider procedures requiring assistance completed. jb4 20:54 Client placed on continuous cardiac and pulse oximetry monitoring. NIBP monitoring lg3 applied. survey field technician on. Door closed. Noise minimized. Warm blanket given. Pillow given. Family accompanied patient. 20:54 EKG done, by ED staff, reviewed by Jacky Casper MD. Patient maintains SpO2 lg3 saturation greater than 95% on room air. 21:09 XRAY Chest (1 view) In Process Unspecified. EDMS 21:30 Inserted saline lock: 20 gauge in left antecubital area, using aseptic technique. Blood lg3 collected. Flushed with 10 mL NS. 22:49 Angel Hernández MD is Hospitalizing Provider. sp4 23:24 Charly Jhaveri, RN is Primary Nurse. bm8 05/20 00:32 CT Chest Abdomen Pelvis W/O Contrast In Process Unspecified. EDMS 03:05 Patient admitted, IV remains in place. lg3 Administered Medications: 05/19 21:48 Drug: Furosemide IVP 40 mg IVP once; give over 2 minutes Route: IVP; Site: left lg3 antecubital; 23:28 Follow up: Response: No adverse reaction bm8 Medication: 20:40 VIS not applicable for this client. jb4 Outcome: 22:50 Decision to Hospitalize by Provider. hakan 05/20 03:04 Admitted to Tele accompanied by nurse, via wheelchair, lg3 Condition: stable Instructed on the need for admit, Demonstrated understanding of instructions, 03:22 Patient left the ED. bm8 Signatures: Dispatcher [employer] EDMS Ej Mcmillan, RN RN jb4 Corry Nash RN RN lg3 Jacky Casper MD MD sp4 Sharron Green Brad, RN RN bm8
--- NOTE | 2024-05-20 00:59 | P.HP ---
Certification for Inpatient Patient admitted to: Observation With expected LOS: <2 Midnights Practitioner: I am a practitioner with admitting privileges, knowledge of patient current condition, hospital course, and medical plan of care. Services: Services provided to patient in accordance with Admission requirements found in Title 42 Section 412.3 of the Code of Federal Regulations Patient History Date of Service: 05/20/24 Reason for admission: sob History of Present Illness: 79-year-old female with history of atrial fibrillation CKD, CHF, CAD, diabetes, hypertension presents with complaints of shortness of breath. She was recently admitted for CHF exacerbation. She was discharged with oral Lasix. Patient also reported that she had increased dose of her amiodarone. Reports that overall she is breathing better but is having some persistent dyspnea. X-ray did not show worsening CHF. She was also noted have elevated LFT. Also has generalized weakness. She is getting home physical therapy and home health. It was noted in the ER that when she was falling asleep her sats were dropping. And she did not require oxygen while awake. A CT scan of the chest abdomen pelvis was requested. Allergies amoxicillin [From Augmentin] Adverse Reaction (Verified 05/12/24 00:19) Nausea/Vomiting ciprofloxacin Adverse Reaction (Verified 05/12/24 00:19) Nausea/Vomiting clavulanic acid [From Augmentin] Adverse Reaction (Verified 05/12/24 00:19) Nausea/Vomiting levetiracetam [From Keppra] Adverse Reaction (Verified 05/12/24 00:19) fast heart rate oxcarbazepine Adverse Reaction (Verified 05/12/24 00:19) fast heart beat Home Medications: Atorvastatin Calcium [Lipitor] 40 mg PO BEDTIME 08/07/21 Insulin NPH Human Isophane [Novolin N] 25 unit SQ SEECOM 06/30/23 Apixaban [Eliquis *] 2.5 mg PO BID 07/26/23 Clopidogrel Bisulfate [Plavix] 75 mg PO DAILY 07/26/23 carvediloL [Coreg*] 3.125 mg PO BID 6AM 6PM 30 Days #60 tab 07/30/23 PHENYTOIN ER Cap [Dilantin ER Cap*] 300 mg PO SEECOM 12/25/23 Albuterol Neb [Proventil 0.083% Neb Soln] 1 vial NEB PRN PRN 04/24/24 Ipratropium [place] 1 vial NEB PRN PRN 04/24/24 Amiodarone HCl [Cordarone*] 200 mg PO BID 30 Days #60 tab 04/29/24 Empagliflozin [Jardiance] 10 mg PO DAILY #30 tab 04/29/24 Hydrocodone 5/APAP 325 [[place] 5/325*] 1 tab PO Q6H PRN #15 tab 04/29/24 Midodrine HCl [Proamatine*] 5 mg PO TID #90 tab 04/29/24 Cefdinir [Cefdinir*] 300 mg PO DAILY 7 Days #7 cap 05/14/24 Furosemide [Lasix] 80 mg PO DAILY #60 tab 05/14/24 Spironolactone [Aldactone*] 12.5 mg PO DAILY #30 tab 05/14/24 - Past Medical/Surgical History Diabetic: Yes -: Seizures -: Atrial fibrillation on chronic anticoagulation -: Diabetes mellitus type 2insulin-dependent -: Hypertension -: Hyperlipidemia -: Chronic systolic congestive heart failure -: CAD -: CKD 4 -: neuropathy -: Systolic CHF- EF 20-25% -: defibrilator -: PNA -: defib/pacemaker placement x2 -: exploratory lap -: appendectomy -: Hemorrhoidectomy -: cyst removal of arms and feet Psychosocial/ Personal History: Patient lives at home with family - Family History Father -: Hypertension, Lung disease Notes: Father passed from pneumonia Mother -: Heart disease, Hypertension, Diabetes Sister -: Diabetes Brother -: Diabetes, Kidney disease - Social History Alcohol use: No CD- Drugs: No Caffeine use: No Review of Systems 10-point ROS is otherwise unremarkable Respiratory: Shortness of Breath Physical Examination - Physical Exam General: In no apparent distress HEENT: Atraumatic, Normocephalic Respiratory: Normal air movement, Diminished Cardiovascular: Regular rate/rhythm Gastrointestinal: Soft and benign, Non-distended Musculoskeletal: No contractures Integumentary: No rashes - Studies Laboratory Data (last 24 hrs) 05/19/24 05/19/24 05/19/24 21:39 21:39 21:39 WBC 4.20 L Hgb 11.8 L Hct 35.2 L Plt Count 225 PT 17.8 H INR 1.60 Sodium 127 L Potassium 4.1 BUN 80 H Creatinine 2.77 H Glucose 198 H Magnesium 2.4 Total Bilirubin 0.7 AST 146 H ALT 131 H Alkaline Phosphatase 208 H Assessment and Plan - Problems (Diagnosis) (1) Transaminitis Current Visit: Yes Status: Acute (2) Dyspnea Onset Date: 09/21/15 Current Visit: No Status: Acute Qualifiers: - Plan 79-year-old female presents with dyspnea, weakness. She has a complicated medical history. Dyspnea Congestive heart failure Pulmonary edema Suspected sleep apnea -- She does have some persistent pulmonary edema she was discharged on larger dose of Lasix --Chest x-ray did not show worsening pulmonary edema --A CT of the chest abdomen pelvis was requested --Differentials also include with recent increase of amiodarone if this is causing some of her symptoms. Family reports that she went from 100 mg to 400 mg and has felt worse since increasing that. --Her sats are obviously dropping when she was falling asleep in the emergency room. Pretty rapidly. She would likely benefit from a sleep study and possibly CPAP Transaminitis --Could be from medication differentials also include congestion Weakness -- Likely debility will check a CPK -- PT consult Acute on chronic kidney disease -- Recently had dose of diuretics adjusted History of atrial fibrillation Coronary artery disease -- Await home medication reconciliation Insulin-dependent diabetes -- FSBS sliding scale insulin - Advance Directives Does patient have a Living Will: No Does patient have a Durable POA for Healthcare: No
[2024-05-20] MEDS ORDERED: GLUCAGON 1 MG/VIAL IM PRN (01:00)
[2024-05-20] MEDS ORDERED: D10W 125 ML IV PRN (01:00)
--- NOTE | 2024-05-20 02:27 | RAD REPORT ---
EXAM: CT Chest, Abdomen and Pelvis Without Intravenous Contrast CLINICAL HISTORY: The patient is 79 years old and is Female; SOB TECHNIQUE: Axial computed tomography images of the chest, abdomen and pelvis without intravenous contrast. S agittal and coronal reformatted images were created and reviewed. This CT exam was performed using one or more of the following dose reduction techniques: automated exposure control, adjustmen t of the mA and/or kV according to patient size, and/or use of iterative reconstruction technique. COMPARISON: CT May 07, 2024 FINDINGS: CHEST: LUNGS: Mild diffuse interlobular thickening is noted throughout with subtle groundglass opacities . The overall appearance is similar to slightly improved from prior exam. PLEURAL SPACE: Small bilateral pleural effusions are present. No pneumothorax. HEART: The heart is enlarged. Calcification of the coronary vessels is noted. ABDOMEN: LIVER: The liver is cirrhotic with a nodular contour. GALLBLADDER AND BILE DUCTS: Surgical clips are present in the right upper quadrant, consistent wi th previous cholecystectomy. PANCREAS: Fatty infiltration and atrophy of the pancreas is noted. No ductal dilation. SPLEEN: The spleen is small. ADRENALS: Unremarkable. No mass. KIDNEYS AND URETERS: Exophytic right renal cyst is present. No follow-up imaging is recommended. The kidneys are atrophic. There is no hydronephrosis or hydroureter of either kidney. No obstructing calculus is seen. STOMACH AND BOWEL: The stomach is decompressed. The small bowel is relatively normal in caliber. Stool is present throughout the colon. Scattered colonic diverticula are noted without surrounding inflammation. There is no evidence of obstruction. PELVIS: APPENDIX: No findings to suggest acute appendicitis. BLADDER: The bladder is significantly distended. Air is present within the bladder which may be s econdary to prior treatment dilatation. There is no bladder wall thickening. No stones. REPRODUCTIVE: Unremarkable as visualized. CHEST, ABDOMEN and PELVIS: INTRAPERITONEAL SPACE: Trace amount of ascites is present within the right upper quadrant. No f ree air. BONES/JOINTS: Degenerative change of the spine is present. Part defects at L5 are noted. There is no acute fracture. SOFT TISSUES: Evidence of a prior midline abdominal incision with hernia repair is noted. VASCULATURE: Atherosclerosis of the aorta is present. Calcified phleboliths are present within the pelvis. LYMPH NODES: Unremarkable. No enlarged lymph nodes. TUBES, LINES AND DEVICES: A triple lead left-sided pacemaker is present. IMPRESSION: 1. Bilateral pleural effusions with mild pulmonary edema, slightly improved from prior exam. 2. Colonic diverticulosis. 3. Significantly distended bladder with air present which may be secondary to prior instrumentation . No bladder wall thickening or surrounding stranding. Electronically signed by: Maya Schultz MD 05/20/2024 02:24 AM CDT RP Due to temporary technical issues with the PACS/[employer] reporting system, reports are being eddie d by the in-house radiologist without review as a courtesy to ensure prompt reporting the interpreting radiologist is fully responsible for the content of the report. Transcribed Date/Time: 05/20/2024 2:26 AM
[2024-05-20 05:18] VITALS: BMI 27.7
[2024-05-20] MEDS: INSULIN REGULAR (HUMAN) 100 UNIT/ML SQ SCH (07:30)
[2024-05-20] MEDS ORDERED: ALBUTEROL 2.5 MG/3 ML NEB SOL NEB PRN (12:00)
--- NOTE | 2024-05-20 12:18 | EKG ---
Test Date: 2024-05-19 Test Time: 21:05:52 Medical Office Scheduler: NEHEMIAH MEASUREMENT RESULTS: Intervals: Rate: 89 WV: 156 QRSD: 204 QT: 496 QTc: 603 [place]: P: WV: 156 QRS: -84 T: 103 INTERPRETIVE STATEMENTS: AV dual-paced rhythm Biventricular pacemaker detected Abnormal ECG Compared to ECG 05/11/2024 15:35:28 No significant changes Electronically Signed On 05-20-24 12:17:12 CDT by Arden Garza
[2024-05-20] MEDS: MIDODRINE HCL 5 MG TABLET PO SCH (13:06)
--- NOTE | 2024-05-20 16:03 | CON ---
Date of Consultation: 05/20/2024 Reason For Consultation: Elevated BUN and creatinine, fluid management. 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 The patient recently admitted to the hospital with congestive heart failure with acute kidney injury, diuresed, Lasix increased to 80 mg and discharged. According to the patient, after a few days, the patient started retaining fluid and feeling shortness of breath. For that reason, returned to the hospital. Upon arrival to the hospital, the patient found to be elevation in creatinine up to 2.7, with elevation in BUN. For that reason, she has been admitted. The patient denied taking any nonsteroidal. Patient admits that she has been taking extra of the Lasix in the evening of 40 mg to help with the swelling. The patient complaining from orthopnea. Past Medical History: Include: 1. Hypertension. 2. Hyperlipidemia. 3. Diabetes complicated with neuropathy and nephropathy. 4. CAD complicated with congestive heart failure, ejection fraction of 30%. 5. Chronic kidney disease stage 4/3B. Baseline creatinine 2, GFR of 25. On last admission, creatinine 2.3, GFR 21. Past Surgical History: Include: 1. Laparotomy. 2. ICD. 3. Appendectomy. 4. Hemorrhoidectomy. Family History: Positive for CAD, diabetes, and hypertension. Social History: Denied smoking. Denied drinking. Denied drugs abuse. Review of Systems: Head and Neck: No red eye. No ear pain. GI: Has decreased intake. : No polyuria. No dysuria. No hematuria. COLUMNIST/COMMENTATOR: No vaginal discharge. Respiratory: Has shortness of breath. Cardiovascular: Has orthopnea. Has leg swelling. Endocrine: No polydipsia. Skin: No rash. Neuro: Has neuropathy. Musculoskeletal: No joint pain. Physical Examination: General: When I saw the patient, patient lying in bed, slightly shortness of breath. Vital Signs: Blood pressure 101/60, pulse of 89, afebrile. Chest: Crackles, bilateral. Heart: S1, S2. Systolic murmur. Abdomen: Soft, nontender. Extremities: +1 edema. Neurologic: Alert. No focality. Laboratory Data: For the patient, back in May 14, creatinine 2.3, GFR 21. On this admission, sodium 127, potassium 4.1, bicarb 29, BUN 80, creatinine 2.7, GFR of 17, calcium 8.9, had marginal elevation in AST, ALT. BNP 22,000, which is slightly better than previous admission. Chest x-ray, cardiomegaly with congestion. Home Medications: For the patient include Lasix 80 mg daily with occasionally 40 mg in the evening, midodrine, spironolactone, carvedilol 3.125. Atorvastatin, Eliquis, amiodarone. Current Medications: In the hospital include: 1. Lasix. 2. Amiodarone. 3. Atorvastatin. 4. Insulin. Assessment And Plan: 1. Hyponatremia secondary to dilutional, secondary to renal and cardiorenal syndrome. We will resume diuresis. We will increase Lasix to 80 mg b.i.d. and we will follow up. 2. Acute kidney injury on chronic kidney disease, overvolume, secondary to cardiorenal. I am going to optimize the fluid status. We will increase Lasix as above. 3. Anemia of chronic kidney disease. No need for BENJAMIN. 4. Congestive heart failure with exacerbation secondary to cardiorenal syndrome. We will optimize fluid status for the patient and we will follow up. 5. Diabetes, as by Primary. 6. Hyperlipidemia, as by Primary. Time spent exam the patient [id number] reviewing the data lab and the radiology placing order discuss the case with the patient discussing the case with the boarder steam including nursing and hospitalist more than 75 minutes IFEANYI Voice ID: [id number] Report ID: [id number] MELISSA
[2024-05-20 16:09] LABS: Specific Gravity 1.009 (1.005-1.030); Urine Bilirubin NEGATIVE (Negative); Urine Blood Negative (Negative); Urine Clarity Clear (Clear); Urine Color Light-Yellow (Yellow); Urine Glucose NEGATIVE (Negative); Urine Ketones NEGATIVE (Negative); Urine Microscopic Reflex YN NO UMIC; Urine Nitrite NEGATIVE (Negative); Urine Protein NEGATIVE (Negative); Urine Urobilinogen Normal (Normal)
[2024-05-20] MEDS: FUROSEMIDE 40 MG/4 ML VIAL IV SCH (16:34)
[2024-05-20] MEDS: PHENYTOIN ER 100 MG CAP PO SCH (20:22)
[2024-05-20] MEDS: ATORVASTATIN 40 MG TAB PO SCH (20:22)
[2024-05-20] MEDS: APIXABAN 2.5 MG TABLET PO SCH (20:23)
[2024-05-20] MEDS: AMIODARONE HCL 200 MG TAB PO SCH (20:23)
[2024-05-21 07:09] LABS: Absolute Eosinophils 0.2 K/uL (0-0.5); Absolute Lymphocytes (CBC) 0.9 K/uL (0.7-4.9); Absolute Monocytes 0.5 K/uL (0.1-1.3); Absolute Neutrophil 2.4 K/uL (1.8-8.0); Eosinophils % 4.7 % (0-4.4); Hematocrit 32.6 % (36.0-45.0); Hemoglobin 11.1 g/dL (12.0-15.0); Lymphocytes % 22.3 % (15.3-44.8); MCH 34.9 pg (27.0-35.0); MCV 102.5 fL (80-100); MPV 10.2 fL (7.6-11.3); Nucleated Red Blood Cells % 0.4 % (0-0); Platelets 199 thou/uL (152-406); RBC Red Blood Cell Count 3.18 M/uL (3.86-4.86); Red Cell Distribution Width 16.6 % (12.1-15.2)
[2024-05-21 07:24] LABS: Albumin 3.1 g/dL (3.4-5.0); Albumin/Globulin Ratio 0.9 (1.1-1.8); Anion Gap 11.8 mEq/L (5.0-15.0); Bilirubin Total 0.7 mg/dL (0.2-1.0); Globulin 3.6 g/dL (2.3-3.5); Magnesium 2.2 mg/dL (1.6-2.4); Potassium 3.8 mEq/L (3.5-5.1); Protein, Total 6.7 g/dL (6.4-8.2)
[2024-05-21] MEDS: **PT MED**Empagliflozin [Jardiance] 10 MG Tablet PO SCH (09:00)
[2024-05-21] MEDS: CLOPIDOGREL 75 MG TABLET PO SCH (09:20)
[2024-05-21] MEDS: PHENYTOIN ER 100 MG CAP PO SCH (09:20)
[2024-05-21] MEDS: SPIRONOLACTONE 25 MG TABLET PO SCH (09:21)
--- NOTE | 2024-05-21 10:13 | P.CNS ---
Date of Consult: 05/21/24 Chief Complaint: sob History of Present Illness: Patient with PMH OF Atrial fibrillation, heart failure reduced EF, CAD s/p PCI/LM/LAD/LCX presented with worsening SOB, KELLEY, denies chest pain, no palpitations. Allergies amoxicillin [From Augmentin] Adverse Reaction (Verified 05/12/24 00:19) Nausea/Vomiting ciprofloxacin Adverse Reaction (Verified 05/12/24 00:19) Nausea/Vomiting clavulanic acid [From Augmentin] Adverse Reaction (Verified 05/12/24 00:19) Nausea/Vomiting levetiracetam [From Keppra] Adverse Reaction (Verified 05/12/24 00:19) fast heart rate oxcarbazepine Adverse Reaction (Verified 05/12/24 00:19) fast heart beat Home medications list reviewed: Yes Home Medications: Atorvastatin Calcium [Lipitor] 40 mg PO BEDTIME 08/07/21 Insulin NPH Human Isophane [Novolin N] 25 unit SQ SEECOM 06/30/23 Apixaban [Eliquis *] 2.5 mg PO BID 07/26/23 Clopidogrel Bisulfate [Plavix] 75 mg PO DAILY 07/26/23 carvediloL [Coreg*] 3.125 mg PO BID 6AM 6PM 30 Days #60 tab 07/30/23 PHENYTOIN ER Cap [Dilantin ER Cap*] 300 mg PO SEECOM 12/25/23 Albuterol Neb [Proventil 0.083% Neb Soln] 1 vial NEB PRN PRN 04/24/24 Ipratropium [place] 1 vial NEB PRN PRN 04/24/24 Amiodarone HCl [Cordarone*] 200 mg PO BID 30 Days #60 tab 04/29/24 Hydrocodone 5/APAP 325 [[place] 5/325*] 1 tab PO Q6H PRN #15 tab 04/29/24 Midodrine HCl [Proamatine*] 5 mg PO TID #90 tab 04/29/24 Furosemide [Lasix] 80 mg PO DAILY #60 tab 05/14/24 Spironolactone [Aldactone*] 12.5 mg PO DAILY #30 tab 05/14/24 - Past Medical/Surgical History Diabetic: Yes -: Seizures -: Atrial fibrillation on chronic anticoagulation -: Diabetes mellitus type 2insulin-dependent -: Hypertension -: Hyperlipidemia -: Chronic systolic congestive heart failure -: CAD -: CKD 4 -: neuropathy -: Systolic CHF- EF 20-25% -: defibrilator -: PNA -: defib/pacemaker placement x2 -: exploratory lap -: appendectomy -: Hemorrhoidectomy -: cyst removal of arms and feet Psychosocial/ Personal History: Patient lives at home with family - Family History Father Medical History: Hypertension, Lung disease Notes: Father passed from pneumonia Mother Medical History: Heart disease, Hypertension, Diabetes Sister Medical History: Diabetes Brother Medical History: Diabetes, Kidney disease - Social History Smoking Status: Unknown if ever smoked Alcohol use: No CD- Drugs: No Caffeine use: Yes Place of Residence: Home Review of Systems 10-point ROS is otherwise unremarkable Physical Examination Temp Pulse Resp BP Pulse Ox 97.6 F 89 17 108/63 98 05/21/24 08:00 05/21/24 09:20 05/21/24 08:00 05/21/24 09:20 05/21/24 08:00 General: Alert, In no apparent distress HEENT: Atraumatic, PERRLA, Mucous membr. moist/pink, EOMI, Sclerae nonicteric Neck: Supple, 2+ carotid pulse no bruit, No LAD, Without JVD or thyroid abnormality Respiratory: Clear to auscultation bilaterally, Normal air movement Cardiovascular: Regular rate/rhythm, Normal S1 S2 Gastrointestinal: Normal bowel sounds, No tenderness Musculoskeletal: No tenderness Integumentary: No rashes Neurological: Normal gait, Normal speech, Normal tone, Normal affect Lymphatics: No axilla or inguinal lymphadenopathy - Problems (1) Acute on chronic systolic heart failure Current Visit: No Status: Acute Plan: continue Lasix 80 mg IV BID Continue Aldactone 12.5 mg daily continue to monitor input and output and electrolytes. (2) Atrial fibrillation with RVR Current Visit: No Status: Acute Plan: Patient IS CURRENTLY PACED. complaining that her amdioarone making her feel more SOB. stop amiodarone start sotalol 80 mg po BID (EKG after 3rd dose) continue Eliquis 2.5 mg po BID (3) Coronary artery disease Current Visit: No Status: Chronic Plan: S/P RECENT pci lm/lad/lcx continue Plavix 75 mg daily continue lipitor 40 mg daily Qualifiers:
--- NOTE | 2024-05-21 10:58 | PN ---
Date of Progress Note: 05/21/2024 Subjective: The patient was admitted to the hospital with acute kidney injury on advanced chronic kidney disease secondary to cardiorenal. We increased her diuresis dose. The patient's swelling has been improved. Physical Examination: Vital Signs: Blood pressure 108/63, pulse of 89, afebrile. The patient had good urine output of 840. As weight, the patient is stable, but since admission lost 5 pounds. Chest: Clear to auscultation. Heart: S1, S2. Regular. Systolic murmur. Abdomen: Soft, nontender. Extremities: Trace edema. Neurologic: Alert. No focality. Laboratory Data: Hemoglobin 11.1. Sodium 134, potassium 3.8, bicarb 25, BUN 74, creatinine 2.3 improving, GFR 20 improving, calcium 8.7, phosphorus 4, albumin 3.1. Urinalysis negative for infection. Current Medications: The patient is on include amiodarone, atorvastatin, spironolactone 12.5, midodrine 5 mg t.i.d., Eliquis, Plavix, Dilantin, Lasix 80 b.i.d. IV. Assessment And Plan: 1. Chronic kidney disease stage 4 secondary to cardiorenal, over volume. Continue to recover. I am going to switch the Lasix to oral and we will monitor. 2. Hypertension, controlled, optimal. Blood pressure acceptable. I am going to go ahead and decrease midodrine to b.i.d. and we will follow up the patient. 3. Anemia of chronic kidney disease. No need for BENJAMIN. 4. Congestive heart failure with exacerbation. We will adjust her diuresis. We will switch to oral right now and continue spironolactone. 5. Hypokalemia. Continue spironolactone. 6. Hyponatremia, dilutional. Continue diuresis. time spent to exam the patient face to face , reviewing data lab and radiology , placing order , discussing the case with the patient and discussing the case with the preanalytics team lead including hospitalist and nursing staff >55 min IFEANYI Voice ID: [id number] Report ID: [id number] [email or web address]
[2024-05-21] MEDS: SOTALOL HCL 80 MG TAB PO SCH (11:34)
[2024-05-21] MEDS: FUROSEMIDE 40 MG TABLET PO SCH (16:26)
[2024-05-21] MEDS: MIDODRINE HCL 5 MG TABLET PO SCH (20:33)
[2024-05-22] MEDS: NA CHLORIDE 0.9% 250 ML IV ONE (08:23)
[2024-05-22] MEDS: FUROSEMIDE 40 MG/4 ML VIAL IV ONE (09:48)
--- NOTE | 2024-05-22 10:19 | PN ---
Date of Progress Note: 05/22/2024 Subjective: The patient was admitted to the hospital with acute kidney injury secondary to cardiorenal. The patient was started on diuresis, responding very well. The patient's blood pressure has been on the lower side. Objective: Vital Signs: Blood pressure 80/53, pulse of 90, afebrile. Chest: Clear to auscultation. Heart: S1, S2. Regular. Abdomen: Soft, nontender. Extremities: Trace edema. Neurologic: Alert. No focality. Laboratory Data: Hemoglobin 11.1. Sodium 134, potassium 3.8, bicarb 25, BUN 74, creatinine 2.3, GFR 20, phosphorus 4. Current Medications: The patient is on include; 1. Albuterol. 2. Midodrine b.i.d. 5 mg. 3. Eliquis. 4. Plavix. 5. Atorvastatin. 6. Spironolactone. 7. Dilantin. 8. Lasix. Assessment And Plan: 1. Chronic kidney disease stage 4 secondary to cardiorenal, stable. We will follow up lab today. I am going to go ahead and give extra dose of Lasix today and we will follow up the patient. 2. Hypertension. Currently, blood pressure on the lower side. We will increase back her midodrine to 3 times a day. 3. Congestive heart failure with exacerbation. We will give extra dose of Lasix. Continue Lasix 80 b.i.d. 4. Hypokalemia. Continue spironolactone. 5. Hyponatremia secondary to dilutional. Continue diuresis. time spent to exam the patient face to face , reviewing data lab and radiology , placing order , discussing the case with the patient and discussing the case with the warehouse team leader including hospitalist and nursing staff >55 min IFEANYI Voice ID: [id number] Report ID: [id number] MELISSA
[2024-05-22 10:26] LABS: Anion Gap 12.3 mEq/L (5.0-15.0); Potassium 4.3 mEq/L (3.5-5.1)
--- NOTE | 2024-05-22 10:26 | P.PN ---
Subjective Date of Service: 05/22/24 Chief Complaint: sob Subjective: No new changes, No C/O voiced, Tolerating diet, Ambulating, Improving Review of Systems 10-point ROS is otherwise unremarkable Physical Examination - Vital Signs Temperature: 97.6 F Blood Pressure: 80/53 Pulse: 90 Respirations: 16 Pulse Ox (%): 98 - Physical Exam General: Alert, In no apparent distress HEENT: Atraumatic, PERRLA, EOMI Neck: Supple, JVD not distended Respiratory: Clear to auscultation bilaterally, Normal air movement Cardiovascular: Regular rate/rhythm, Normal S1 S2 Gastrointestinal: Normal bowel sounds, No tenderness Musculoskeletal: No tenderness Integumentary: No rashes Neurological: Normal speech, Normal tone, Normal affect Lymphatics: No axilla or inguinal lymphadenopathy - Studies Medications List Reviewed: Yes Assessment And Plan - Current Problems (Diagnosis) (1) Acute on chronic systolic heart failure Current Visit: No Status: Acute Plan: switch lasix to 80 mg po daily Continue Aldactone 12.5 mg daily continue to monitor input and output and electrolytes. (2) Atrial fibrillation with RVR Current Visit: No Status: Acute Plan: Patient IS CURRENTLY PACED. complaining that her amdioarone making her feel more SOB. stop amiodarone lower Sotalol dose to 40 mg po BID continue Eliquis 2.5 mg po BID (3) Coronary artery disease Current Visit: No Status: Chronic Plan: S/P RECENT pci lm/lad/lcx continue Plavix 75 mg daily continue lipitor 40 mg daily Qualifiers:
[2024-05-22 11:01] LABS: Absolute Eosinophils 0.3 K/uL (0-0.5); Absolute Lymphocytes (CBC) 0.9 K/uL (0.7-4.9); Absolute Monocytes 0.4 K/uL (0.1-1.3); Absolute Neutrophil 2.4 K/uL (1.8-8.0); Basophils % 0.5 % (0-1.3); Hematocrit 34.1 % (36.0-45.0); Hemoglobin 11.7 g/dL (12.0-15.0); Lymphocytes % 22.5 % (15.3-44.8); MCH 35.4 pg (27.0-35.0); MCHC 34.4 g/dL (32.0-36.0); MCV 102.7 fL (80-100); MPV 10.2 fL (7.6-11.3); Monocytes % 9.1 % (3.3-12.3); Neutrophils % 60.9 % (41.7-73.7); Nucleated Red Blood Cells % 0.6 % (0-0); Platelets 209 thou/uL (152-406); RBC Red Blood Cell Count 3.31 M/uL (3.86-4.86); Red Cell Distribution Width 17.1 % (12.1-15.2)
[2024-05-22] MEDS: MIDODRINE HCL 5 MG TABLET PO ONE (11:13)
--- NOTE | 2024-05-22 13:40 | RAD REPORT ---
EXAMINATION: ONE VIEW CHEST XR CLINICAL INDICATION: decreased blood pressure TECHNIQUE: Frontal chest projection is submitted. Examination is limited by patient positioning and t echnique. COMPARISON: 05/19/2024 FINDINGS: Mild bilateral pulmonary edema is suspected. The heart is moderately enlarged in size. No displaced f ractures identified. Multilead pacer/defibrillator device present. IMPRESSION: Mild CHF versus volume overload pattern is suspected.
[2024-05-22] MEDS: MIDODRINE HCL 5 MG TABLET PO SCH (14:32)
[2024-05-22] MEDS: SOTALOL HCL 80 MG TAB PO SCH (18:00)
[2024-05-22] MEDS ORDERED: ALBUTEROL 2.5 MG/3 ML NEB SOL NEB PRN (18:14)
[2024-05-22] MEDS: ONDANSETRON 4 MG/2 ML VIAL IV PRN (18:16)
[2024-05-22 18:22] VITALS: O2SAT 100
[2024-05-22] MEDS: ALBUMIN HUMAN 25% 100 ML IV ONE (18:40)
[2024-05-22] MEDS: Mupirocin NASAL 2 APPL/1 GM TUBE NAS SCH (21:00)
--- NOTE | 2024-05-22 21:48 | RAD REPORT ---
EXAMINATION: Abdomen Pelvis Wo Contrast CLINICAL INDICATION: Female, 79 years old.ABD PAIN TECHNIQUE: CT abdomen and pelvis was performed, without IV contrast, as per department protocol. Axia l, sagittal and coronal reconstructions were obtained. One or more of the following dose reduction techniques were used: Automated exposure control, adjustment of the mA and/or kV according to the pat ient size, and/or iterative reconstruction. Unless otherwise specified, incidental findings do not require dedicated imaging follow-up. [id number]. IV CONTRAST: Not administered. COMPARISON: 05/20/2024 FINDINGS: The lack of intravenous contrast limits the sensitivity of this exam for evaluation of solid visceral organs, vascular structures, and retroperitoneum. LOWER CHEST: Small bilateral effusions. Intralobular septal thickening consistent with primary edema. Moderate cardiomegaly. Aortic valve and mitral annular calcifications. UPPER GI: No significant abnormality. LIVER: No significant focal abnormality. GALLBLADDER/BILE DUCTS: No biliary ductal dilatation.? PANCREAS: Atrophy but no acute findings. SPLEEN: Unremarkable. ADRENALS: No adrenal masses. KIDNEYS AND URETERS: No hydronephrosis.Low density and/or too small to characterize renal lesions whi ch are statistically benign.No renal calculi.No ureteral calculi. Bilateral renal atrophy. ABDOMINAL AORTA AND OTHER VESSELS: Moderate atherosclerotic changes without aortic aneurysm. PERITONEUM: No abnormal free fluid. No free air. LYMPH NODES: No pathologic lymphadenopathy. ABDOMINAL WALL: Body wall edema. SMALL BOWEL/COLON: Small bowel has normal course and caliber. No colonic wall thickening or pericolon ic inflammatory changes. Mild diverticulosis without diverticulitis. Moderate formed stool burden. URINARY BLADDER: Gas within the bladder may be from instrumentation. REPRODUCTIVE ORGANS: No pathologic process. MUSCULOSKELETAL: Subacute left L1 transverse process and T11 rib fractures. Subacute right-sided rib fractures. ADDITIONAL FINDINGS: None. IMPRESSION: No acute findings within the abdomen or pelvis. Anasarca including pulmonary edema. Incidental findings as noted above.
[2024-05-23 00:44] LABS: Absolute Lymphocytes (CBC) 0.7 K/uL (0.7-4.9); Absolute Monocytes 0.5 K/uL (0.1-1.3); Absolute Neutrophil 2.5 K/uL (1.8-8.0); Basophils % 0.6 % (0-1.3); Eosinophils % 1.1 % (0-4.4); Hematocrit 38.4 % (36.0-45.0); Lymphocytes % 17.9 % (15.3-44.8); MCH 33.3 pg (27.0-35.0); MCHC 31.2 g/dL (32.0-36.0); MCV 106.7 fL (80-100); MPV 9.9 fL (7.6-11.3); Monocytes % 12.5 % (3.3-12.3); Neutrophils % 67.9 % (41.7-73.7); Nucleated RBC Absolute Count 0.1 (0-0); Nucleated Red Blood Cells % 1.5 % (0-0); Platelets 184 thou/uL (152-406); Red Cell Distribution Width 17.6 % (12.1-15.2)
[2024-05-23 00:48] LABS: Albumin 3.3 g/dL (3.4-5.0); Albumin/Globulin Ratio 0.8 (1.1-1.8); Anion Gap 16.3 mEq/L (5.0-15.0); Bilirubin Total 0.7 mg/dL (0.2-1.0); Globulin 4.2 g/dL (2.3-3.5); Magnesium 2.3 mg/dL (1.6-2.4); Phosphorus 5.7 mg/dL (2.5-4.9); Potassium 5.3 mEq/L (3.5-5.1); Protein, Total 7.5 g/dL (6.4-8.2)
[2024-05-23 01:10] LABS: Band Neutrophils 3 % (0-1); Differential Total Cells Count 100; Lymphocytes 23 % (15-42); Monocytes 1 % (0-10); Reactive Lymphocytes 3 %; Segmented Neutrophils 70 % (40-80)
[2024-05-23 01:11] LABS: Blood Morphology Comment NOTED (NOT SEEN); Burr Cells 2+; Macrocytosis 1+; Platelet Estimate ADEQ; Polychromasia 1+
[2024-05-23] MEDS ORDERED: NOREPINEPHRINE 4 MG in D5W 250 ML IV SCH (04:00)
[2024-05-23] MEDS: NOREPINEPHRINE BITARTRATE/D5W 4 MG/250 ML KIT IV ONE (04:04)
[2024-05-23] MEDS: SODIUM ZIRCONIUM CYCLOSILICATE 10 GM/PKT PO ONE (04:46)
[2024-05-23] MEDS: NOREPINEPHRINE 4 MG in D5W 250 ML IV SCH (05:00)
[2024-05-23 05:44] VITALS: TEMP 97
--- NOTE | 2024-05-23 05:56 | P.PN ---
Date of Service: 05/23/24 Patient was hypotensive Prescribed initially with albumin and midodrine Patient was not responding to the above measures Patient was confused Denies any chest pain or shortness of breath EKG repeated Hyperkalemia noted Gave Lokelma As the patient was not responding with the conservative measures of albumin and midodrine patient was transferred to ICU for further measures And was started on Levophed
[2024-05-23 05:57] LABS: Albumin 3.1 g/dL (3.4-5.0); Anion Gap 18.3 mEq/L (5.0-15.0); Phosphorus 5.8 mg/dL (2.5-4.9); Potassium 5.3 mEq/L (3.5-5.1)
[2024-05-23] MEDS ORDERED: D50W 25 GM/50 ML SYRINGE IV ONE ×2 (07:11→07:36)
[2024-05-23 08:06] VITALS: BP 89/76
[2024-05-23] MEDS ORDERED: MIDODRINE HCL 5 MG TABLET PO SCH (09:00)
--- NOTE | 2024-05-23 13:19 | EKG ---
Test Date: 2024-05-23 Test Time: 06:43:24 Multiple Cut Off Saw Operator: CMAP MEASUREMENT RESULTS: Intervals: Rate: 75 DE: 144 QRSD: 84 QT: 488 QTc: 544 [place]: P: DE: 144 QRS: 0 T: -37 INTERPRETIVE STATEMENTS: Wide complex rhythm, most likely slow VT Indeterminate axis Low voltage QRS Anterior infarct, possibly acute Lateral injury pattern Prolonged QT ACUTE PR Abnormal ECG Compared to ECG 05/22/2024 09:15:12 Indeterminate axis now present Low QRS voltage now present Myocardial infarct finding now present AV dual-paced complex(es) or rhythm no longer present Electronically Signed On 05-23-24 13:18:26 CDT by Arden Garza
--- NOTE | 2024-05-23 13:26 | EKG ---
Test Date: 2024-05-22 Test Time: 09:15:12 Substation Operator Automatic: LINDSAY MEASUREMENT RESULTS: Intervals: Rate: 90 [place]: 142 QRSD: 210 QT: 554 QTc: 677 [place]: P: [place]: 142 QRS: -88 T: 109 INTERPRETIVE STATEMENTS: AV dual-paced rhythm Abnormal ECG Compared to ECG 05/19/2024 21:05:52 No significant changes Electronically Signed On 05-23-24 13:19:26 CDT by Arden Garza
--- NOTE | 2024-05-27 11:00 | EKG ---
Test Date: 2024-05-22 Test Time: 23:02:28 Operation Supervisor: ALEC MEASUREMENT RESULTS: Intervals: Rate: 89 MT: 110 QRSD: 180 QT: 490 QTc: 596 [place]: P: MT: 110 QRS: -78 T: 106 INTERPRETIVE STATEMENTS: AV sequential or dual chamber electronic pacemaker Compared to ECG 05/22/2024 09:15:12 Ventricular-paced complex(es) or rhythm no longer present Electronically Signed On 05-27-24 10:56:13 CDT by Arden Garza
--- NOTE | 2024-05-29 13:56 | P.PN ---
Date of Service: 05/21/24 Subjective patient's clinical symptoms are stable. Continue with diuresing. Long-term prognosis appears to be very poor. Physical Examination - Physical Exam Vitals: Reviewed General: In no apparent distress HEENT: Atraumatic, Normocephalic Respiratory: Normal air movement, Diminished Cardiovascular: Regular rate/rhythm Gastrointestinal: Soft and benign, Non-distended Musculoskeletal: No contractures Integumentary: No rashes Assessment and Plan - Problems (Diagnosis) (1) Dyspnea Current Visit: Yes Status: Acute (2) Congestive heart failure Current Visit: Yes Status: Acute (3) Atrial fibrillation Current Visit: Yes Status: Acute (4) Type 2 diabetes Current Visit: Yes Status: Acute - Plan 1. Acute CHF exacerbation; patient's respiratory status continues to worsen. Continue with diuresing. Patient is very weak and does not feel like she is able the exert any strain to get out of bed. Spoke with family and prognosis is poor 2. Atrial fibrillation; continue medication for rate control 3. type 2 diabetes; strict blood sugar control - Advance Directives Does patient have a Living Will: No Does patient have a Durable POA for Healthcare: No
--- NOTE | 2024-05-29 13:58 | P.PN ---
Date of Service: 05/22/24 Subjective Patient with ejection fraction of 10%. Patient does not feel comfortable with using amiodarone. We will try to go ahead and changed to sotalol per Cardiology recommendation. Patient will be monitored closely on the floor. Patient blood pressure has been a little soft and will continue with Motrin and albumin. Patient is really weak and frail and no substantial changes necessary at this time Physical Examination - Physical Exam Vitals: Reviewed General: In no apparent distress HEENT: Atraumatic, Normocephalic Respiratory: Normal air movement, Diminished Cardiovascular: Regular rate/rhythm Gastrointestinal: Soft and benign, Non-distended Musculoskeletal: No contractures Integumentary: No rashes Assessment and Plan - Problems (Diagnosis) (1) Dyspnea Current Visit: Yes Status: Acute (2) Congestive heart failure Current Visit: Yes Status: Acute (3) Atrial fibrillation Current Visit: Yes Status: Acute (4) Type 2 diabetes Current Visit: Yes Status: Acute - Plan 1. Acute CHF exacerbation; patient's respiratory status continues to worsen. Patient with systolic dysfunction with an EF of 10%. Continue with diuresing. Patient is very weak and does not feel like she is able the exert any strain to get out of bed. Spoke with family and prognosis is poor 2. Atrial fibrillation; patient requested change from amiodarone to sotalol. Cardiology agreeable. Will continue monitoring closely. 3. type 2 diabetes; strict blood sugar control - Advance Directives Does patient have a Living Will: No Does patient have a Durable POA for Healthcare: No
--- NOTE | 2024-05-29 14:01 | P.DS ---
Discharge Date: 05/23/24 Disposition: Reason for Admission: sob Brief History of Present Illness: 79-year-old female with history of atrial fibrillation CKD, CHF, CAD, diabetes, hypertension presents with complaints of shortness of breath. She was recently admitted for CHF exacerbation. She was discharged with oral Lasix. Patient also reported that she had increased dose of her amiodarone. Reports that overall she is breathing better but is having some persistent dyspnea. X-ray did not show worsening CHF. She was also noted have elevated LFT. Also has generalized weakness. She is getting home physical therapy and home health. It was noted in the ER that when she was falling asleep her sats were dropping. And she did not require oxygen while awake. A CT scan of the chest abdomen pelvis was requested. Hospital Course: Patient apparently was moved to ICU overnight. Patient's blood pressure has been soft. Patient was started on Levophed. When I went into the room to check on the patient because of low blood sugars she was unresponsive and she was agonal breathing. Spoke with patient's family and they want to proceed with hospice care. Unfortunately, patient did not survive long and patient at 825. Vital Signs/Physical Exam: Temp Pulse Resp BP Pulse Ox 97.0 F 91 H 35 H 89/76 L 100 05/23/24 04:30 05/23/24 07:30 05/23/24 07:30 05/23/24 07:30 05/23/24 07:30 General: Alert, In no apparent distress, Oriented x3 Laboratory Data at Discharge: WBC 3.70 thou/uL (4.3-10.9) L 05/23/24 00:16 Hgb 12.0 g/dL (12.0-15.0) 05/23/24 00:16 Hct 38.4 % (36.0-45.0) 05/23/24 00:16 Plt Count 184 thou/uL (152-406) 05/23/24 00:16 PT 17.8 SECONDS (10-13.0) H 05/19/24 21:39 INR 1.60 05/19/24 21:39 Sodium Cancelled 05/23/24 11:00 Potassium Cancelled 05/23/24 11:00 BUN Cancelled 05/23/24 11:00 Creatinine Cancelled 05/23/24 11:00 Glucose Cancelled 05/23/24 11:00 Phosphorus 5.8 mg/dL (2.5-4.9) H 05/23/24 05:00 Magnesium Cancelled 05/23/24 11:00 Total Bilirubin Cancelled 05/23/24 11:00 AST Cancelled 05/23/24 11:00 ALT Cancelled 05/23/24 11:00 Alkaline Phosphatase Cancelled 05/23/24 11:00 Home Medications: Atorvastatin Calcium [Lipitor] 40 mg PO BEDTIME 08/07/21 Insulin NPH Human Isophane [Novolin N] 25 unit SQ SEECOM 06/30/23 Apixaban [Eliquis *] 2.5 mg PO BID 07/26/23 Clopidogrel Bisulfate [Plavix] 75 mg PO DAILY 07/26/23 carvediloL [Coreg*] 3.125 mg PO BID 6AM 6PM 30 Days #60 tab 07/30/23 PHENYTOIN ER Cap [Dilantin ER Cap*] 300 mg PO SEECOM 12/25/23 Albuterol Neb [Proventil 0.083% Neb Soln] 1 vial NEB PRN PRN 04/24/24 Ipratropium [place] 1 vial NEB PRN PRN 04/24/24 Amiodarone HCl [Cordarone*] 200 mg PO BID 30 Days #60 tab 04/29/24 Hydrocodone 5/APAP 325 [[place] 5/325*] 1 tab PO Q6H PRN #15 tab 04/29/24 Midodrine HCl [Proamatine*] 5 mg PO TID #90 tab 04/29/24 Furosemide [Lasix] 80 mg PO DAILY #60 tab 05/14/24 Spironolactone [Aldactone*] 12.5 mg PO DAILY #30 tab 05/14/24 Physician Discharge Instructions: Patient at 8:45 a.m.. Followup: KERVIN COLON [Primary Care Provider] - 1-2 Weeks Time spent managing pt's care (in minutes): 35
[2024-05-31] MEDS ORDERED: LORazepam 2 MG/ML VIAL ONE (17:09)
== END 2024-05-23 09:45 | disposition expired | DRG 291 ==
LOC: ER 19:57 → ERHOLD 05-20 01:00 → UNDOADMIN 05-20 01:00 → ERHOLD 05-20 01:00 → 4TH 05-20 02:11 → OBSVTOIN 05-21 12:20 → 3RD-ICU 05-23 04:45
PROVIDERS: ADMIT Internal Medicine; ATTEND Hospitalist
PROC: 02HV33Z Insertion of Infusion Device into Superior Vena Cava, Percutaneous Approach (ICD-10-PCS; principal; 2024-05-23)
DX: I13.0 Hypertensive heart and chronic kidney disease with heart failure and stage 1 through stage 4 chronic kidney disease, or unspecified chronic kidney disease (principal); G93.41 Metabolic encephalopathy; I50.23 Acute on chronic systolic (congestive) heart failure; N18.4 Chronic kidney disease, stage 4 (severe); N17.9 Acute kidney failure, unspecified; E87.1 Hypo-osmolality and hyponatremia; R57.0 Cardiogenic shock; E11.22 Type 2 diabetes mellitus with diabetic chronic kidney disease; E11.40 Type 2 diabetes mellitus with diabetic neuropathy, unspecified; D63.1 Anemia in chronic kidney disease; E78.00 Pure hypercholesterolemia, unspecified; E87.6 Hypokalemia; I48.91 Unspecified atrial fibrillation; K76.1 Chronic passive congestion of liver; I25.2 Old myocardial infarction; R74.01 Elevation of levels of liver transaminase levels; Z88.1 Allergy status to other antibiotic agents; Z88.8 Allergy status to other drugs, medicaments and biological substances; I25.10 Atherosclerotic heart disease of native coronary artery without angina pectoris; Z79.4 Long term (current) use of insulin; Z79.01 Long term (current) use of anticoagulants; Z79.899 Other long term (current) drug therapy
CPT/HCPCS: 36415; 71045; 71250; 74176; 80048; 80053; 80069; 80076; 81003; 82550; 82947; 83735; 83880; 84100; 84484; 85025; 85610; 93005; 94760; 96374; 97116; 97161; 97530; 99285; J1815; J1938; J1940; J2405; J7050; P9047